=== PATIENT | female | born 1940 | race Caucasian/White ===

== ENCOUNTER → 2016-08-01 | Day surgery (SDC) | payer OTHER ==
[2016-07-25 11:39] VITALS: Ht 160 cm; Wt 61.8 kg
[~2016-08-01] VITALS: Ht 160 cm; Wt 61.8 kg
[~2016-08-01] MED LIST: BSP/10 PO; CLB100 PO; CLOP1TAB15 PO; ESCI1TAB6 PO; ESCI1TAB9 PO; FERR325T51 PO; LEVO100T7 PO; LIDOCAINE HCL 2% 2 ML VIAL (20MG/ML) ONE; LSN25 PO; METH500T37 PO; MISO1TAB10 PO; MULT-506 PO; NRN800 PO; ONDA4TAB9 PO; ONDANSETRON INJ 2 MG/ML 2 ML VIAL IV PRN; PANT40TA2 PO; PROM25TA16 PO; PROPOFOL IV EMULSION 10 MG/ML 20 ML VIAL IV ONE; ROSU40TA PO; TPRSR/25 PO; TRAM-10 PO; ZOLP5TAB PO
--- NOTE | 2016-08-01 13:01 | Endo History and Physical ---
History & Physical Date of Service: Aug 01, 2016. Chief Complaint: Dark stool and diarrhea Referring Physician: Dr. Coughlin History of Present Illness patient presenting for evaluation of weight loss, nausea and diarrhea ongoing for several months. Referred for eGD and colonoscopy. Past Medical History Angioplasty/Stent, Arthritis, Reflux, High Cholesterol, CABG, Hypertension, Thyroid Disease, Kidney Disease, Depression Past Surgical History Hx Cardiac Surgery: Yes (CABG-1 VESSEL) Hx Internal Defibrillator: No Hx Pacemaker: No Hx Abdominal Surgery: Yes (ENDY, PANNICULECTOMY) Hx of Implantable Prosthesis: No Hx Post-Op Nausea and Vomiting: No Hx Cancer Surgery: No Hx Thoracic Surgery: No Hx Orthopedic: Yes (RT/LEFT ANDRÉS) Hx Urinary Tract Surgery: No Family History None Social History Smoking Status: Never Smoker Hx Substance Use: No Hx Alcohol Use: No Allergies Coded Allergies: Ergotamine (Verified Adverse Reaction, Intermediate, vomiting, 07/13/16) Nitroglycerin (Verified Adverse Reaction, Mild, N/V, 07/13/16) Current Medications Reported Home Medications Medications Dose Route/Sig Max Daily Dose Days Date Category Lexapro (Escitalopram Oxalate) 10 Mg Tab 10 Mg PO QAM 07/13/16 Reported Lexapro (Escitalopram Oxalate) 5 Mg Tab 5 Mg PO QAM 07/13/16 Reported Multivitamin (Multivitamins) Tab 1 Tab PO QAM 07/13/16 Reported Robaxin (Methocarbamol) 500 Mg Tab 500 Mg PO TID 07/13/16 Reported Plavix (Clopidogrel Bisulfate) 75 Mg Tab 75 Mg PO QAM 07/13/16 Reported Cytotec (Misoprostol) 100 Mcg Tab 100 Mcg PO QID 07/13/16 Reported Celebrex (Celecoxib) 100 Mg Cap 1 Cap PO BID 30 07/13/16 Reported Ambien (Zolpidem Tartrate) 5 Mg Tab 5 Mg PO HS 07/13/16 Reported Iron Supplement (Ferrous Sulfate) 325 Mg Tab 325 Mg PO QAM 08/12/15 Reported Gabapentin 800 Mg Tab 800 Mg PO TID 08/12/15 Reported Ultram (Tramadol HCl) 50 Mg Tab 50 Mg PO Q4H PRN 08/12/15 Reported Ondansetron HCl (Ondansetron) 4 Mg Tab 4 Mg PO UD PRN 08/12/15 Reported Pantoprazole Sodium (Pantoprazole) 40 Mg Tab 40 Mg PO BID 08/12/15 Reported Metoprolol Succinate ER (Metoprolol Succinate) 25 Mg Tabcr 25 Mg PO QAM 08/12/15 Reported Levothyroxine Sodium 100 Mcg Tab 100 Mcg PO QAM 08/12/15 Reported Buspirone HCl 10 Mg Tab 10 Mg PO BID 07/01/14 Reported Promethazine HCl 25 Mg Tab 25 Mg PO Q6H PRN 07/01/14 Reported Lisinopril 2.5 Mg Tab 2.5 Mg PO QAM 07/01/14 Reported Crestor (Rosuvastatin Calcium) 40 Mg Tab 40 Mg PO QAM 05/24/12 Reported Vital Signs Weight (Kilograms): 61.82 Height (Feet): 5 Height (Inches): 3 Physical Exam General Appearance: no apparent distress Respiratory/Chest: Auscultation: breath sounds normal Cardiovascular: Heart Auscultation: RRR Abdomen: Inspection & Palpation: soft Assessment and Plan Patient for EGD and colonoscopy today for evaluation of diarrhea, dark stool and weight loss. We have discussed the risks (bleeding, infection, perforation , pain and missed polyps).
--- NOTE | 2016-08-01 13:57 | GI REPORT ---
Procedure Date: 08/01/2016 1:25 PM Procedure: Upper GI endoscopy Indications: Melena, Diarrhea Medicines: Monitored Anesthesia Care Complications: No immediate complications. Estimated blood loss: Minimal. Estimated Blood Loss: Estimated blood loss was minimal. Procedure: Pre-Anesthesia Assessment: - Prior to the procedure, a History and Physical was performed, and patient medications, allergies and sensitivities were reviewed. The patient's tolerance of previous anesthesia was reviewed. - The risks and benefits of the procedure and the sedation options and risks were discussed with the patient. All questions were answered and informed consent was obtained. - Patient identification and proposed procedure were verified prior to the procedure by the physician, the nurse and the curing press operator. The procedure was verified in the procedure room. - Pre-procedure physical examination revealed no contraindications to sedation. - ASA Grade Assessment: III - A patient with severe systemic disease. - After reviewing the risks and benefits, the patient was deemed in satisfactory condition to undergo the procedure. - The anesthesia plan was to use monitored anesthesia care (MAC). - Immediately prior to administration of medications, the patient was re-assessed for adequacy to receive sedatives. - The heart rate, respiratory rate, oxygen saturations, blood pressure, adequacy of pulmonary ventilation, and response to care were monitored throughout the procedure. - The physical status of the patient was re-assessed after the procedure. After obtaining informed consent, the endoscope was passed under direct vision. Throughout the procedure, the patient's blood pressure, pulse, and oxygen saturations were monitored continuously. The scope was introduced through the mouth, and advanced to the third part of duodenum. The upper GI endoscopy was accomplished without difficulty. The patient tolerated the procedure well. Findings: The examined esophagus was normal. The Z-line was regular and was found 37 cm from the incisors. Diffuse mild inflammation characterized by congestion (edema), erythema and granularity was found in the stomach. Biopsies were taken with a cold forceps for histology. Estimated blood loss was minimal. A single 4 mm no bleeding angioectasia was found in the gastric body. Coagulation for tissue destruction using argon plasma at 1 liter/minute and 15 alexander was successful. Estimated blood loss was minimal. The examined duodenum was normal. Biopsies for histology were taken with a cold forceps for evaluation of celiac disease. Estimated blood loss was minimal. Impression: - Normal esophagus. - Z-line regular, 37 cm from the incisors. - Gastritis. Biopsied. - A single non-bleeding angioectasia in the stomach. Treated with argon plasma coagulation (APC). - Normal examined duodenum. Biopsied. Recommendation: - Perform a colonoscopy today. - Await pathology results. - Observe patient's clinical course following today's procedure with therapeutic intervention. Aiden Sahu D.O. Aiden Sahu, 08/01/2016 1:56:55 PM This report has been signed electronically. Note Initiated On: 08/01/2016 1:25 PM I attest to the content of the Intraoperative Record and orders documented therein, exceptions below
--- NOTE | 2016-08-01 14:00 | GI REPORT ---
Procedure Date: 08/01/2016 1:26 PM Procedure: Colonoscopy Indications: Screening for colorectal malignant neoplasm, Incidental diarrhea noted Medicines: Monitored Anesthesia Care Complications: No immediate complications. Estimated blood loss: Minimal. Estimated Blood Loss: Estimated blood loss was minimal. Procedure: Pre-Anesthesia Assessment: - Prior to the procedure, a History and Physical was performed, and patient medications, allergies and sensitivities were reviewed. The patient's tolerance of previous anesthesia was reviewed. - The risks and benefits of the procedure and the sedation options and risks were discussed with the patient. All questions were answered and informed consent was obtained. - Patient identification and proposed procedure were verified prior to the procedure by the physician, the nurse and the furniture stainer. The procedure was verified in the procedure room. - Pre-procedure physical examination revealed no contraindications to sedation. - ASA Grade Assessment: III - A patient with severe systemic disease. - After reviewing the risks and benefits, the patient was deemed in satisfactory condition to undergo the procedure. - The anesthesia plan was to use monitored anesthesia care (MAC). - Sedation was administered by an anesthesia professional. - The heart rate, respiratory rate, oxygen saturations, blood pressure, adequacy of pulmonary ventilation, and response to care were monitored throughout the procedure. - The physical status of the patient was re-assessed after the procedure. After I obtained informed consent, the scope was passed under direct vision. Throughout the procedure, the patient's blood pressure, pulse, and oxygen saturations were monitored continuously. The scope was introduced through the anus and advanced to the terminal ileum. The colonoscopy was performed without difficulty. The patient tolerated the procedure well. The quality of the bowel preparation was good. Findings: The perianal and digital rectal examinations were normal. Pertinent negatives include normal sphincter tone. The terminal ileum appeared normal. Normal mucosa was found in the entire colon. Fluid aspiration was performed through the scope suction channel. Sample(s) were sent for bacterial cultures, Clostridium difficile and ova and parasites. Biopsies for histology were taken with a cold forceps from the entire colon for evaluation of microscopic colitis. Estimated blood loss was minimal. Internal hemorrhoids were found during retroflexion. The hemorrhoids were mild. The exam was otherwise without abnormality. Impression: - The examined portion of the ileum was normal. - Normal mucosa in the entire examined colon. Fluid aspiration performed. Biopsied. - Internal hemorrhoids. - The examination was otherwise normal. Recommendation: - Discharge patient to home (ambulatory). - Advance diet as tolerated today. - Await pathology results. - Repeat colonoscopy is not recommended for screening purposes. - Return to referring physician as previously scheduled. Aiden Sahu D.O. Aiden Sahu, DO 08/01/2016 1:59:39 PM This report has been signed electronically. Note Initiated On: 08/01/2016 1:26 PM I attest to the content of the Intraoperative Record and orders documented therein, exceptions below
--- NOTE | 2016-08-01 14:06 | Discharge Instructions ---
Endoscopy Patient Instructions Date / Procedure(s) Performed Aug 01, 2016. Colonoscopy, EGD Allergy Information Coded Allergies: Ergotamine (Verified Adverse Reaction, Intermediate, vomiting, 07/13/16) Nitroglycerin (Verified Adverse Reaction, Mild, N/V, 07/13/16) Discharge Date / Findings Aug 01, 2016. MIld gastritis (likely medication related) 1 small gastric AVM (treated with thermal therapy) Internal hemorrhoids Medication Instructions Stopped Medication(s): PLAVIX 07/28/16 Reported Home Medications Medications Dose Route/Sig Max Daily Dose Days Date Category Lexapro (Escitalopram Oxalate) 10 Mg Tab 10 Mg PO QAM 07/13/16 Reported Lexapro (Escitalopram Oxalate) 5 Mg Tab 5 Mg PO QAM 07/13/16 Reported Multivitamin (Multivitamins) Tab 1 Tab PO QAM 07/13/16 Reported Robaxin (Methocarbamol) 500 Mg Tab 500 Mg PO TID 07/13/16 Reported Plavix (Clopidogrel Bisulfate) 75 Mg Tab 75 Mg PO QAM 07/13/16 Reported Cytotec (Misoprostol) 100 Mcg Tab 100 Mcg PO QID 07/13/16 Reported Celebrex (Celecoxib) 100 Mg Cap 1 Cap PO BID 30 07/13/16 Reported Ambien (Zolpidem Tartrate) 5 Mg Tab 5 Mg PO HS 07/13/16 Reported Iron Supplement (Ferrous Sulfate) 325 Mg Tab 325 Mg PO QAM 08/12/15 Reported Gabapentin 800 Mg Tab 800 Mg PO TID 08/12/15 Reported Ultram (Tramadol HCl) 50 Mg Tab 50 Mg PO Q4H PRN 08/12/15 Reported Ondansetron HCl (Ondansetron) 4 Mg Tab 4 Mg PO UD PRN 08/12/15 Reported Pantoprazole Sodium (Pantoprazole) 40 Mg Tab 40 Mg PO BID 08/12/15 Reported Metoprolol Succinate ER (Metoprolol Succinate) 25 Mg Tabcr 25 Mg PO QAM 08/12/15 Reported Levothyroxine Sodium 100 Mcg Tab 100 Mcg PO QAM 08/12/15 Reported Buspirone HCl 10 Mg Tab 10 Mg PO BID 07/01/14 Reported Promethazine HCl 25 Mg Tab 25 Mg PO Q6H PRN 07/01/14 Reported Lisinopril 2.5 Mg Tab 2.5 Mg PO QAM 07/01/14 Reported Crestor (Rosuvastatin Calcium) 40 Mg Tab 40 Mg PO QAM 05/24/12 Reported Provider Instructions Activity Restrictions - No exercising or heavy lifting for 24 hours. - Do not drink alcohol the day of the procedure. - Do not drive a car or operate machinery until the day after the procedure. - Do not make any important decisions or sign important papers in 24 hours after the procedure. Following Day: - Return to full activity which may include returning to work/school. Diet Start your diet with liquids and light foods (jello, soup, juice, toast). Then eat your usual diet if not nauseated. Treatment For Common After Affects For mild abdominal pain, bloating, or excessive gas: - Rest - Eat lightly - Lie on right side Follow-Up Information Follow-up with DR. GARCIA as scheduled Await colon and biopsies from the upper digestive tract If weight loss persists would consider a CT of the abdomen Anesthesia Information What You Should Know You have had a procedure that required some medicine to reduce anxiety and discomfort. This treatment is called moderate sedation. After receiving the treatment, you may be sleepy, but you will be able to breathe on your own. The effects of the treatment may last for several hours. Follow these instructions along with Activity/Diet recommendations noted above: * Do NOT do anything where dizziness or clumsiness would be dangerous. * Rest quietly at home today, then you can be up and about tomorrow. * Have a responsible person stay with you the rest of today. * You may have had an I.V. today. If so, you may take the dressing off later today. Recommendations Call your doctor if: * Trouble breathing * Continuous vomiting for more than 24 hours * Temperature above 101 degrees * Severe abdominal pain or bloating * Pain not relieved by pain medicine ordered * There is increased drainage or redness from any incision * A large amount of rectal bleeding greater than 2-3 tablespoons. (If you had a polyp/s removed or have hemorrhoids, a small amount of blood - from the rectum is to be expected.) * You have any unanswered questions or concerns. IN THE EVENT OF A SERIOUS EMERGENCY, GO TO THE NEAREST EMERGENCY ROOM Your discharge instructions were prepared by provider Aiden Sahu. Patient Instructions Signature Page Marquez Howard Patient (or Guardian) Signature/Date: I have read and understand the instructions given to me by my caregivers. Caregiver/RN/Doctor Signature/Date: The above-named patient and/or guardian has received patient instructions on this date. + Original Patient Signature Page (only) stays with chart. Please make copy for patient.
--- NOTE | 2016-08-01 14:18 | Anesthesiology Progress Note ---
Anesthesia Post Op Note Date & Time Aug 01, 2016 at 14:18 Vital Signs Pain Intensity: 0 Vital Signs Past 12 Hours Date Time Temp Pulse Resp B/P (MAP) Pulse Ox O2 Delivery O2 Flow Rate FiO2 08/01/16 14:13 77 18 127/82 (97) 99 Room Air 08/01/16 13:58 86 18 128/77 (94) 98 Room Air 08/01/16 13:00 36.9 79 18 137/71 (93) 98 Room Air Notes Mental Status: alert / awake / arousable, participated in evaluation Pt Amnestic to Procedure: Yes Nausea / Vomiting: adequately controlled Pain: adequately controlled Airway Patency, RR, SpO2: stable & adequate BP & HR: stable & adequate Hydration State: stable & adequate Anesthetic Complications: no major complications apparent
[2016-08-01 14:28] VITALS: BP 140/75; PULSE 74; O2SAT 98
[2016-08-09 13:44] LABS: CRYPTOSPORIDIUM AG TC 37213 NOT DETECTED (NOT DETECTED); ISOSPORA+CYCLOSPORA NOT DETECTED (NOT DETECTED); O&P GIARDIA AG NOT DETECTED (NOT DETECTED); O&P SOURCE OTHER-STOOL
== END | disposition home or self-care (01) ==
LOC: C.GI 12:23
PROVIDERS: ATTEND Internal Medicine Gastroenterology
DX: K92.1 Melena (principal); R19.7 Diarrhea, unspecified; R63.4 Abnormal weight loss; R11.0 Nausea; K64.8 Other hemorrhoids; K29.70 Gastritis, unspecified, without bleeding; K55.20 Angiodysplasia of colon without hemorrhage; I25.10 Atherosclerotic heart disease of native coronary artery without angina pectoris; I10 Essential (primary) hypertension; M19.90 Unspecified osteoarthritis, unspecified site; F32.9 Major depressive disorder, single episode, unspecified; E78.00 Pure hypercholesterolemia, unspecified; K21.9 Gastro-esophageal reflux disease without esophagitis; Z68.24 Body mass index [BMI] 24.0-24.9, adult; Z79.899 Other long term (current) drug therapy; Z95.1 Presence of aortocoronary bypass graft; Z96.643 Presence of artificial hip joint, bilateral

== ENCOUNTER 2017-10-10 14:10 | Emergency (ER) | payer OTHER ==
[~2017-10-10] VITALS: Ht 160 cm; Wt 63.4 kg
[~2017-10-10 14:10] MED LIST changes: +ACET-24 PO; +DIPH-416 PO; +FERR1TAB62 PO; -FERR325T51 PO; -LIDOCAINE HCL 2% 2 ML VIAL (20MG/ML) ONE; +METH-445 PO; -METH500T37 PO; -ONDANSETRON INJ 2 MG/ML 2 ML VIAL IV PRN; -PROPOFOL IV EMULSION 10 MG/ML 20 ML VIAL IV ONE; +QUET1TAB30 PO; +RXC5 PO; -TRAM-10 PO; -ZOLP5TAB PO
[2017-10-10 14:35] VITALS: TEMP 36.6; Ht 160 cm; Wt 63.4 kg
[2017-10-10 14:37] VITALS: O2SAT 99
[2017-10-10] MEDS ORDERED: ONDANSETRON INJ 2 MG/ML 2 ML VIAL IV STA (14:56)
[2017-10-10] MEDS ORDERED: LABETALOL HCL IV 5 MG/ML 20ML IV STA (14:56)
[2017-10-10] MEDS ORDERED: RANITIDINE HCL 50 MG/100 ML D5W IV STA (14:56)
[2017-10-10] MEDS ORDERED: PANTOprazole INJ 80 MG in DEXTROSE 5% 100ML 100 ML IV STA (14:56)
[2017-10-10] MEDS ORDERED: SODIUM CHLORIDE 0.9% 1000ML 1,000 ML IV STA (14:56)
[2017-10-10] MEDS ORDERED: OPTIRAY 320 IV PRN (15:15)
[2017-10-10 15:25] LABS: BASO % 0.6 %; BASO ABS # 0.03 K/uL (0-0.2); EOS % 1.8 %; HEMATOCRIT 34.4 % (37-47); HEMOGLOBIN 11.6 g/dL (12.0-16.0); LYMPH % 32.1 %; LYMPH ABS # 1.75 K/uL (1.2-3.4); MEAN CELL VOLUME 91.7 fL (80-100); MEAN CORPUSCULAR HEMOGLOBIN 30.9 pg (25-34); MEAN CORPUSCULAR HGB CONC 33.7 g/dl (32-36); MONO % 9.5 %; MONO ABS # 0.52 K/uL (0.11-0.59); NEUT ABS # 3.05 K/uL (1.4-6.5); PLATELET COUNT 164 K/uL (130-400); RED CELL DISTRIBUTION WIDTH CV 13.9 % (11.5-14.5); RED CELL DISTRIBUTION WIDTH SD 46.8 fL (36.4-46.3); WHITE BLOOD COUNT 5.45 K/uL (4.8-10.8)
[2017-10-10 15:46] LABS: ALBUMIN 3.5 gm/dl (3.4-5.0); ALKALINE PHOSPHATASE 55 U/L (45-117); ALT/SGPT 17 U/L (12-78); AST/SGOT 18 U/L (15-37); BLOOD UREA NITROGEN 11 mg/dl (7-18); CALCIUM 10.2 mg/dl (8.5-10.1); CARBON DIOXIDE 22 mmol/L (21-32); CREATININE 0.86 mg/dl (0.60-1.20); GLUCOSE 92 mg/dl (70-99); LIPASE 150 U/L (73-393); POTASSIUM 3.7 mmol/L (3.5-5.1); SODIUM 141 mmol/L (136-145); TOTAL PROTEIN 7.1 gm/dl (6.4-8.2)
[2017-10-10] MEDS ORDERED: HYDR-5688 PO (16:30)
--- NOTE | 2017-10-10 17:02 | DIAGNOSTIC IMAGING REPORT ---
ABD/PELVIS IV CONTRAST ONLY CLINICAL HISTORY: 78 years-old Female presenting with ABD PAIN, POSS OBSTRUCTION, IV CONTRAST ONLY. TECHNIQUE: Multidetector CT of the abdomen and pelvis was performed after the administration of intravenous contrast. IV contrast: 93 mL of Optiray 320. A dose lowering technique was used consistent with the principles of ALARA (as low as reasonably achievable). COMPARISON: None. CT DOSE (mGy.cm): The estimated cumulative dose is 643.81 mGycm. 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 Scoliotic curvature and degenerative changes of the spine. Lung bases: Bandlike opacities at the lung bases likely atelectasis or scarring. Normal heart size. Coronary artery calcification. No pericardial or pleural effusion. Liver: Normal morphology. No liver lesion. Patent hepatic vasculature. Biliary: No intrahepatic or extrahepatic biliary ductal dilatation. Normal gallbladder. Pancreas: Normal. Spleen: Numerous punctate calcifications in the splenic parenchyma suggest a history of chronic granulomatous infection. Adrenal glands: Normal. Kidneys and ureters: Punctate nonobstructing calculus at the upper pole the right kidney. No hydronephrosis. Normal renal parenchyma. Ureters nondistended. Significant streak artifact in the pelvis limits evaluation of the distal ureters. Bladder: Poorly evaluated secondary to streak artifact. Pelvic organs: Poorly evaluated secondary to streak artifact. Bowel: Suboptimal evaluation of the mid to lower rectum. The appendix is normal. No bowel obstruction. Small hiatal hernia. Peritoneal cavity: No free fluid or intraperitoneal gas. Lymph nodes: No enlarged lymph nodes in the abdomen or pelvis. Vasculature: Atherosclerosis of the normal caliber abdominal aorta. IVC patent. Tortuosity of the abdominal aorta without evidence of aneurysmal dilatation. Abdominal wall: Small fat-containing umbilical hernia. No associated inflammatory change or fluid. Musculoskeletal: Degenerative changes of the spine. The degree of scoliosis limits evaluation. Bilateral total hip arthroplasties. Resulting extensive streak artifact degrades evaluation of the pelvis. Old posterior right rib fracture deformity. IMPRESSION: 1. No acute intra-abdominal pathology. No bowel obstruction. 2. Punctate nonobstructing right renal calculus. Electronically signed by: David Estrada M.D. 10/10/2017 5:01 PM Dictated Date/Time: 10/10/2017 4:53 PM
[2017-10-10] MEDS ORDERED: SODIUM CHLORIDE 0.9% 500ML 500 ML IV STA (17:18)
[2017-10-10] MEDS ORDERED: PROM25TA9 PO (17:22)
[2017-10-10 17:52] VITALS: BP 160/80; PULSE 74; O2SAT 98
--- NOTE | 2017-10-10 18:28 | EMERGENCY ROOM VISIT NOTE ---
History Report prepared by Teodoro: Feliberto Ibarra Under the Supervision of: Dr. Avel Santiago M.D. First contact with patient: 14:51 Chief Complaint: VOMITING Stated Complaint: VOMITING Nursing Triage Summary: Pt has had complaints of nausea since 0300 AM on sunday, Stated, "it was blood tinged on sunday but is no longer blood tinged." Has had diarehhea but no complaints of it today. Has not taken BP meds for 3 days and denies having any pain. History of Present Illness The patient is a 78 year old female who presents to the Emergency Room with complaints of intermittent vomiting beginning 3 days ago and a resolved episode of diarrhea occurring last night at 22:00. The patient reports that she started vomiting Sunday at 03:00, and vomited again this morning. She notes that there was some blood in her vomit at the onset of her symptoms. The patient denies current abdominal pain, fever, urinary symptoms, or sick contacts. She states that she is on Plavix, Toprol, and Crestor. She notes that she has not been taking her blood pressure medications since the onset of her symptoms. She notes that on the night prior to vomiting, she ate a can of Progresso stew. She reports that she had similar symptoms in June 2014 and was admitted to the hospital for 3 weeks with bleeding ulcers. The patient reports that she arrived today via ambulance. She states that she lives alone. Source of History: patient Onset: 3 days ago Position: other (throat (vomit), bowels (diarrhea)) Quality: other (vomiting and diarrhea) Timing: intermittent (vomiting), resolved (diarrhea) Associated Symptoms: No fevers, No abdominal pain, No urinary symptoms Review of Systems See HPI for pertinent positives & negatives. A total of 10 systems reviewed and were otherwise negative. Past Medical & Surgical Medical Problems: (1) Anxiety (2) Chronic kidney disease stage 3 (3) Chronic osteoarthritis (4) Coronary artery disease (5) Depression (6) DJD of left shoulder (7) Dyslipidemia (8) Gastric ulcer (9) GERD (gastroesophageal reflux disease) (10) Hypertension (11) Hypothyroidism Surgical Problems: (1) H/O bilateral salpingo-oophorectomy (2) History of shoulder surgery (3) History of tonsillectomy and adenoidectomy (4) s/p hysterectomy (5) s/p repair retinal tear (6) s/p ANDRÉS (7) s/p tonsillectomy Family History CAD BROTHER CHF MOTHER Social History Smoking Status: Never Smoker Alcohol Use: none Housing Status: lives alone Current/Historical Medications Scheduled Acetaminophen (Sb Non-Aspirin Extra Stre), 1,000 MG PO Q8 Buspirone HCl (Buspirone HCl), 10 MG PO BID Celecoxib (Celebrex), 1 CAP PO QAM Clopidogrel (Plavix), 75 MG PO QAM Escitalopram Oxalate (Lexapro), 5 MG PO QAM Escitalopram Oxalate (Lexapro), 10 MG PO QAM Ferrous Sulfate (Ferrous Sulfate), 1 TAB PO QAM Gabapentin (Gabapentin), 800 MG PO TID Levothyroxine Sodium (Levothyroxine Sodium), 100 MCG PO QAM Lisinopril (Lisinopril), 2.5 MG PO QAM Methocarbamol (Robaxin), 500 MG PO TID Metoprolol Succinate (Metoprolol Succinate ER), 50 MG PO QAM Misoprostol (Cytotec), 100 MCG PO QID Multivitamin (Multivitamin), 1 TAB PO QAM Scheduled PRN Diphenoxylate/Atropine (Lomotil), 1 TAB PO QD PRN for Diarrhea Hydrocodone/Acetaminophen 5MG/325MG ([place] 5MG/325MG), 1-2 TABLET PO QID PRN for Pain Promethazine Hcl (Phenergan), 25 MG PO Q6H PRN for Nausea Allergies Coded Allergies: Ergotamine (Verified Adverse Reaction, Intermediate, vomiting, 07/13/17) Nitroglycerin (Verified Adverse Reaction, Mild, N/V, 10/10/17) Physical Exam Vital Signs Date Time Temp Pulse Resp B/P (MAP) Pulse Ox O2 Delivery O2 Flow Rate FiO2 10/10/17 17:52 74 18 160/80 98 Room Air 10/10/17 16:56 75 18 151/97 98 Room Air 10/10/17 16:00 69 18 145/90 98 Room Air 10/10/17 15:22 83 18 182/126 98 Room Air 10/10/17 14:38 87 18 194/96 100 Room Air 10/10/17 14:37 99 Room Air 10/10/17 14:35 36.6 84 18 204/111 100 Room Air 10/10/17 14:34 79 Physical Exam GENERAL: Patient is in no acute distress. HEENT: No acute trauma, normocephalic atraumatic, mucous membranes dry, no nasal congestion, no scleral icterus. NECK: No stridor, no adenopathy, no meningismus, trachea is midline. LUNGS: Clear to auscultation bilaterally, no wheeze, no rhonchi, breath sounds equal. HEART: Without murmurs gallops or rubs, regular rate and rhythm. ABDOMEN: Soft, nontender, bowel sounds positive and hyperactive, no hernias, no peritonitis. EXTREMITIES: No cyanosis or edema, full range of motion of all the joints without pain or difficulty, no signs for acute trauma. NEUROLOGIC: Oriented x 3, no acute motor or sensory deficits, no focal weakness. SKIN: No rash, no jaundice, no diaphoresis. RECTAL: Brown stool, heme negative. Medical Decision & Procedures ER Provider Diagnostic Interpretation: Radiology results as stated below per my review and radiologist interpretation: ABD/PELVIS IV CONTRAST ONLY CLINICAL HISTORY: 78 years-old Female presenting with ABD PAIN, POSS OBSTRUCTION, IV CONTRAST ONLY. TECHNIQUE: Multidetector CT of the abdomen and pelvis was performed after the administration of intravenous contrast. IV contrast: 93 mL of Optiray 320. A dose lowering technique was used consistent with the principles of ALARA (as low as reasonably achievable). COMPARISON: None. CT DOSE (mGy.cm): The estimated cumulative dose is 643.81 mGycm. FINDINGS: Pillowcase Folder topogram: Bilateral total hip prostheses. Scoliotic curvature and degenerative changes of the spine. Lung bases: Bandlike opacities at the lung bases likely atelectasis or scarring. Normal heart size. Coronary artery calcification. No pericardial or pleural effusion. Liver: Normal morphology. No liver lesion. Patent hepatic vasculature. Biliary: No intrahepatic or extrahepatic biliary ductal dilatation. Normal gallbladder. Pancreas: Normal. Spleen: Numerous punctate calcifications in the splenic parenchyma suggest a history of chronic granulomatous infection. Adrenal glands: Normal. Kidneys and ureters: Punctate nonobstructing calculus at the upper pole the right kidney. No hydronephrosis. Normal renal parenchyma. Ureters nondistended. Significant streak artifact in the pelvis limits evaluation of the distal ureters. Bladder: Poorly evaluated secondary to streak artifact. Pelvic organs: Poorly evaluated secondary to streak artifact. Bowel: Suboptimal evaluation of the mid to lower rectum. The appendix is normal. No bowel obstruction. Small hiatal hernia. Peritoneal cavity: No free fluid or intraperitoneal gas. Lymph nodes: No enlarged lymph nodes in the abdomen or pelvis. Vasculature: Atherosclerosis of the normal caliber abdominal aorta. IVC patent. Tortuosity of the abdominal aorta without evidence of aneurysmal dilatation. Abdominal wall: Small fat-containing umbilical hernia. No associated inflammatory change or fluid. Musculoskeletal: Degenerative changes of the spine. The degree of scoliosis limits evaluation. Bilateral total hip arthroplasties. Resulting extensive streak artifact degrades evaluation of the pelvis. Old posterior right rib fracture deformity. IMPRESSION: 1. No acute intra-abdominal pathology. No bowel obstruction. 2. Punctate nonobstructing right renal calculus. Electronically signed by: David Estrada M.D. 10/10/2017 5:01 PM Dictated Date/Time: 10/10/2017 4:53 PM Laboratory Results 10/10/17 15:09 Red Blood Count 3.75, Mean Corpuscular Volume 91.7, Mean Corpuscular Hemoglobin 30.9, Mean Corpuscular Hemoglobin Concent 33.7, Mean Platelet Volume 10.0, Neutrophils (%) (Auto) 56.0, Lymphocytes (%) (Auto) 32.1, Monocytes (%) (Auto) 9.5, Eosinophils (%) (Auto) 1.8, Basophils (%) (Auto) 0.6, Neutrophils # (Auto) 3.05, Lymphocytes # (Auto) 1.75, Monocytes # (Auto) 0.52, Eosinophils # (Auto) 0.10, Basophils # (Auto) 0.03 10/10/17 15:09 Test 10/10/17 14:30 10/10/17 15:09 Urine Color YELLOW Urine Appearance CLEAR (CLEAR) Urine pH 8.5 (4.5-7.5) Urine Specific [place] 1.012 (1.000-1.030) Urine Protein NEG (NEG) Urine Glucose (UA) NEG (NEG) Urine Ketones NEG (NEG) Urine Occult Blood NEG (NEG) Urine Nitrite NEG (NEG) Urine Bilirubin NEG (NEG) Urine Urobilinogen NEG (NEG) Urine Leukocyte Esterase NEG (NEG) White Blood Count 5.45 K/uL (4.8-10.8) Red Blood Count 3.75 M/uL (4.2-5.4) Hemoglobin 11.6 g/dL (12.0-16.0) Hematocrit 34.4 % (37-47) Mean Corpuscular Volume 91.7 fL (80-100) Mean Corpuscular Hemoglobin 30.9 pg (25-34) Mean Corpuscular Hemoglobin Concent 33.7 g/dl (32-36) Platelet Count 164 K/uL (130-400) Mean Platelet Volume 10.0 fL (7.4-10.4) Neutrophils (%) (Auto) 56.0 % Lymphocytes (%) (Auto) 32.1 % Monocytes (%) (Auto) 9.5 % Eosinophils (%) (Auto) 1.8 % Basophils (%) (Auto) 0.6 % Neutrophils # (Auto) 3.05 K/uL (1.4-6.5) Lymphocytes # (Auto) 1.75 K/uL (1.2-3.4) Monocytes # (Auto) 0.52 K/uL (0.11-0.59) Eosinophils # (Auto) 0.10 K/uL (0-0.5) Basophils # (Auto) 0.03 K/uL (0-0.2) RDW Standard Deviation 46.8 fL (36.4-46.3) RDW Coefficient of Variation 13.9 % (11.5-14.5) Immature Granulocyte % (Auto) 0.0 % Immature Granulocyte # (Auto) 0.00 K/uL (0.00-0.02) Anion Gap 9.0 mmol/L (3-11) Est Creatinine Clear Calc Drug Dose 46.8 ml/min Estimated GFR () 73.9 Estimated GFR (Non- 63.8 BUN/Creatinine Ratio 12.5 (10-20) Calcium Level 10.2 mg/dl (8.5-10.1) Total Bilirubin 0.6 mg/dl (0.2-1) Aspartate Amino Transf (AST/SGOT) 18 U/L (15-37) Alanine Aminotransferase (ALT/SGPT) 17 U/L (12-78) Alkaline Phosphatase 55 U/L (45-117) Troponin I < 0.015 ng/ml (0-0.045) Total Protein 7.1 gm/dl (6.4-8.2) Albumin 3.5 gm/dl (3.4-5.0) Globulin 3.6 gm/dl (2.5-4.0) Albumin/Globulin Ratio 1.0 (0.9-2) Lipase 150 U/L (73-393) Laboratory results reviewed by me. Medications Administered Medications (Trade) Dose Ordered Sig/Danielle Route Start Time Stop Time Status Last Admin Dose Admin Ondansetron HCl (Zofran Inj) 4 mg NOW STAT IV 10/10/17 14:56 10/10/17 15:00 DC 10/10/17 14:56 4 MG Sodium Chloride 1,000 ml @ 999 mls/hr Q1H1M STAT IV 10/10/17 14:56 10/10/17 15:56 DC 10/10/17 15:09 999 MLS/HR Pantoprazole Sodium 80 mg/ Dextrose 120 ml @ 400 mls/hr NOW STAT IV 10/10/17 14:56 10/10/17 15:13 DC 10/10/17 14:56 400 MLS/HR Ranitidine HCl (zANTac IV) 50 mg NOW STAT IV 10/10/17 14:56 10/10/17 15:00 DC 10/10/17 14:56 50 MG Labetalol HCl (Normodyne IV) 20 mg NOW STAT IV 10/10/17 14:56 10/10/17 15:00 DC 10/10/17 15:13 20 MG Sodium Chloride 500 ml @ 999 mls/hr Q31M STAT IV 10/10/17 17:18 10/10/17 17:48 DC 10/10/17 17:22 999 MLS/HR ECG Per My Interpretation Indication: vomiting Rate (beats per minute): 80 Rhythm: normal sinus Findings: other (No ST elevation. No PVCs.) ED Course 1452: The patient was evaluated in room B7. A complete history and physical exam was performed. 1456: Ordered Normodyne 20 mg IV, Zantac 50 mg IV, Pantoprazole Sodium 80 mg/ Dextrose 120 ml @ 400 mls/hr IV, Sodium Chloride 1000 ml @ 999 mls/hr IV, Zofran 4 mg IV 1714: Reevaluated the patient, who is feeling markedly. Discussed results and discharge instructions: She verbalized understanding and agreement. The patient will be ready for discharge. 1718: Ordered Sodium Chloride 500 ml @ 999 mls/hr IV Medical Decision Differential diagnosis: viral or foodborne illness, gastritis, GI bleeding, UTI , anemia, electrolyte imbalance, dehydration, bowel obstruction There is no leukocytosis or worrisome anemia. No significant electrolyte abnormality, kidney failure or hepatitis. Urinalysis does not show evidence for infection. EKG shows a normal sinus rhythm, no acute ischemia. Cardiac enzyme testing 1 is not consistent with acute cardiac injury. Abdominal and pelvis CT does not show bowel obstruction, there is no free air, no acute surgical process by CT. Rectal exam was performed, stool was heme negative. On exam, the patient was not febrile, there was no peritonitis, she was not toxic. The patient received IV saline, IV Zantac and IV Protonix. She was given IV labetalol because of the higher blood pressure. She received a second dose of IV saline. The patient feels markedly improved. I do think she can be discharged with some Phenergan for nausea. She can slowly advance her diet, Tylenol for pain. She was reassured. This illness is likely viral or foodborne. The patient will follow with her doctor and return here if not improving. Medication Reconcilliation Current Medication List: was personally reviewed by me Blood Pressure Screening Patient's blood pressure: Elevated blood pressure Blood pressure disposition: Referred to PCP Impression Primary Impression: Dehydration Additional Impression: Nausea, vomiting, and diarrhea Scribe Attestation The scribe's documentation has been prepared under my direction and personally reviewed by me in its entirety. I confirm that the note above accurately reflects all work, treatment, procedures, and medical decision making performed by me. Departure Information Dispostion Home / Self-Care Prescriptions Promethazine Hcl (Phenergan) 25 Mg Tab 25 MG PO Q6H Y for Nausea, #15 TAB Prov: Avel Santiago M.D. 10/10/17 Referrals Con Coughlin M.D. (PCP) Forms HOME CARE DOCUMENTATION FORM, IMPORTANT VISIT INFORMATION Patient Instructions My [facility] Additional Instructions bland diet--crackers, soup, toast, gatorade, rice restart all your normal meds use phenergan 1 tab every 6 hours for nausea tylenol for pain rest follow with rubi holly this week return for worsening symptoms or if not improving Problem Qualifiers
== END 2017-10-10 18:04 | disposition home or self-care (01) ==
LOC: EDBD 14:10 → C.EDB 14:11
DX: E86.0 Dehydration (principal); R11.2 Nausea with vomiting, unspecified; R19.7 Diarrhea, unspecified; I12.9 Hypertensive chronic kidney disease with stage 1 through stage 4 chronic kidney disease, or unspecified chronic kidney disease; N18.3 Chronic kidney disease, stage 3 (moderate); F41.9 Anxiety disorder, unspecified; F32.9 Major depressive disorder, single episode, unspecified; E78.5 Hyperlipidemia, unspecified; E03.9 Hypothyroidism, unspecified; I25.10 Atherosclerotic heart disease of native coronary artery without angina pectoris; Z79.02 Long term (current) use of antithrombotics/antiplatelets; Z79.899 Other long term (current) drug therapy; Z88.8 Allergy status to other drugs, medicaments and biological substances

== ENCOUNTER 2018-02-28 08:44 | Inpatient (IN) ==
--- NOTE | 2018-01-18 10:48 | History & Physical Report ---
Date of Service January 18, 2018 Assessment & Plan (1) Primary osteoarthritis, right shoulder: Patient has significant osteoarthritis and degenerative changes in her right shoulder. Treatment options were discussed and would like to proceed with right reverse total shoulder arthroplasty. She had left reverse tsa in June and procedure was well tolerated. Risks, benefits and alternatives to surgery including but not limited to infection, DVT, pain, stiffness, need for revision surgery, damage to blood vessels, damage to nerves, PE, , were discussed with the patient and they wish to proceed . All questions answered and reassurance given. Patient plans to return home with home health PT upon discharge. She will follow up post operatively. History of Present Illness Chief Complaint: Right shoulder pain Primary Care Provider: Con Coughlin MD Patient is an 79 year old female with complaints of chronic right shoulder pain. She has failed conservative measures including anti-inflammatory medications and cortisone injections. Treatment options were discussed and she would like to proceed with right reverse total shoulder arthroplasty. She has had previous left reverse TSA in June of this year. Patient denies headaches, sweats, fevers, chills, double vision, blurred vision, cough, sore throat, dysphagia, wheezing, n/v/d/c, numbness, tingling, fatigue, urinary symptoms, mood disorders. ROS positive for right shoulder pain and stiffness. She also had an episode of chest tightness and sob yesterday. This did resolve on its own. She was unsure if this was cardiac related or due to being very nervous about her upcoming surgery. States she was going to call her ghost writer in regards to this. She will need cardiac clearance prior to surgery. PMHx: Anxiety, CKDIII, OA, depression, dyslipidemia, gastric ulcer, GERD, hypertension, hypothyroidism, ? history of TIA Past surgical hx: bilateral salpingo-oophorectomy, left reverse TSA, T&A, hysterectomy, repair of retinal tear, ANDRÉS Social history: Patient denies alcohol or drug use, she is a non smoker. Allergies Allergy/AdvReac Type Severity Reaction Status Date / Time ergotamine AdvReac Intermediate vomiting Verified 07/13/17 06:37 nitroglycerin AdvReac Mild N/V Verified 10/10/17 16:28 Home Medications Home Medications Medication Instructions Recorded Confirmed Type Buspirone HCl 10 mg PO BID #0 07/01/14 History Lisinopril 2.5 mg PO QAM #0 07/01/14 History Gabapentin 800 mg PO TID #0 08/12/15 History LEVOTHYROXINE SODIUM 100 mcg PO QAM #0 08/12/15 History Metoprolol Succinate (Metoprolol 50 mg PO QAM #0 08/12/15 History Succinate ER) Clopidogrel (Plavix) 75 mg PO QAM #0 tab 07/13/16 History ESCITALOPRAM OXALATE (LEXAPRO) 5 mg PO QAM #0 tab 07/13/16 History ESCITALOPRAM OXALATE (LEXAPRO) 10 mg PO QAM #0 tab 07/13/16 History MISOPROSTOL (CYTOTEC) 100 mcg PO QID #0 tab 07/13/16 History Methocarbamol (Robaxin) 500 mg PO TID #0 tab 07/13/16 History Multivitamin 1 tab PO QAM #0 tab 07/13/16 History Diphenoxylate/Atropine (Lomotil) 1 tab PO QD PRN #0 tab 07/02/17 History FERROUS SULFATE 1 tab PO QAM #0 07/02/17 History ACETAMINOPHEN (SB NON-ASPIRIN 1,000 mg PO Q8 #63 tab 07/15/17 Rx EXTRA STRE) Celecoxib (Celebrex) 1 cap PO QAM 30 Days #30 cap 07/15/17 Rx Hydrocodone/Acetaminophen 1 - 2 tab PO QID PRN #0 tab 10/10/17 History 5MG/325MG ([place] 5MG/325MG) Promethazine Hcl (Phenergan) 25 mg PO Q6H PRN #15 tab 10/10/17 Rx Review of Systems All systems reviewed & are unremarkable except as noted in HPI & below Physical Exam 2 Constitutional: well developed and well nourished; no acute distress Eyes: PERRL, conjunctivae normal, anicteric sclerae ENMT: external ear and nose normal, oropharynx normal Neck: trachea midline, no thyromegaly Respiratory: normal respiratory effort, lungs clear to auscultation Cardiovascular: RRR, no murmur, no edema Vessels: no carotid bruit Musculoskeletal: right shoulder-Pain and crepitus with ROM, significantly decreased strength and ROM in all directions. Skin: no rashes, warm and dry Neurologic: normal touch/pain/proprioception Psychiatric: A+Ox3, euthymic affect Results & Data Diagnostic Findings Right shoulder x-rays: [id number] GH joint, humeral head elevation, medialization of humeral head on glenoid. Significant degenerative changes
--- NOTE | 2018-01-25 11:28 | Anesthesiology Consultation ---
Date of Service January 25, 2018 Assessment & Plan (1) Encounter for pre-operative examination: Plan: - Cardio= 11/20/17= " Given her negative dobutamine stress echocardiogram (03/2017 ) and uncomplicated prior arthroplasty, no further testing necessary before proceeding with future orthopedic surgery." Chart Review Chart Review: Acceptable Risk for Surgery and Patient seen in Pre Admission Testing Teaching & Discussion Pre-Anesthesia Teaching/Discussion Notes: Instructed NPO after midnight before surgery,except medications with 15 cc of water. Medication instructions provided according to the PAT guidelines. History Surgery Operation Date: 02/01/18 13:00 Proposed Procedures p Total Shoulder Arthroplasty Reverse - David Green MD Height/Weight Height: 5 ft 3 in Weight: 63.3 kg Allergies Allergy/AdvReac Type Severity Reaction Status Date / Time ergotamine AdvReac Intermediate vomiting Verified 07/13/17 06:37 nitroglycerin AdvReac Unknown "PROJECTILE Verified 01/23/18 13:45 VOMITTING" Medications Home Medications Medication Instructions Recorded Confirmed Last Taken [place] 5 - 325 mg PO UD PRN 01/23/18 01/23/18 Unknown buspirone 10 mg PO BID 01/23/18 01/23/18 Unknown clopidogrel [Plavix] 75 mg PO QAM 01/23/18 01/23/18 Unknown diphenoxylate-atropine [Lomotil] 1 tab PO QID PRN 01/23/18 01/23/18 Unknown escitalopram oxalate [Lexapro] 15 mg PO QAM 01/23/18 01/23/18 Unknown ferrous sulfate 325 mg PO DAILY 01/23/18 01/23/18 Unknown gabapentin 800 mg PO TID 01/23/18 01/23/18 Unknown levothyroxine [Levoxyl] 100 mcg PO QAM 01/23/18 01/23/18 Unknown lisinopril 2.5 mg PO QAM 01/23/18 01/23/18 Unknown methocarbamol 500 mg PO TID 01/23/18 01/23/18 Unknown metoprolol succinate [Toprol XL] 25 mg PO QAM 01/23/18 01/23/18 Unknown misoprostol 100 mcg PO QID 01/23/18 01/23/18 Unknown oxybutynin chloride 10 mg PO QAM 01/23/18 01/23/18 Unknown pantoprazole [Protonix] 40 mg PO BID 01/23/18 01/23/18 Unknown quetiapine [Seroquel] 50 mg PO HS 01/23/18 01/23/18 Unknown rosuvastatin [Crestor] 40 mg PO QAM 01/23/18 01/23/18 Unknown Past Medical History Medical History Acid reflux OCCASIONAL Anemia Arthritis CAD (coronary artery disease) 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 CVA (cerebral vascular accident) 2012= NO RESIDUAL DEFICITS Depression History of blood transfusion 2012 2/2 GASTRIC ULCER History of gastric ulcer 2012 Hypertension Hypothyroidism Spinal stenosis Past Surgical History Surgical History History of abdominoplasty PANNICULECTOMY History of arthroplasty of left hip History of arthroplasty of left shoulder 07/13/17= LMA#4 UNIQUE + PNB AT [facility] History of arthroplasty of right hip History of cardiac catheterization 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 History of colonoscopy History of hysterectomy with oophorectomy History of open heart surgery 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 Right shoulder pain with RUE radiculopathy; B/L hand neuropathy. Patient denies chest pain, shortness of breath, cough, wheezing, palpitations. Physical Exam Vital Signs VITALS BP 122/72 P 68 TEMP 99.0 RESP 18 SP02 98%RA Full neck and c-spine range of motion. Full TMJ range of motion. TMD 2.5 finger breaths Mallampati Score 3 Dentition: intact Lungs: clear throughout to auscultation Cardiac: regular rate and rhythm, no murmurs noted Spine: normal Carotid arteries: negative bruit Extremities: no edema Testing Electrocardiogram Date: 10/10/17 NSR at 76bpm. *Poor data quality* Chest X-Ray Date: 07/02/17 Findings: + NAD Severe levoscoliosis of the lumbar spine. Echocardiogram Date: 11/11/14 EF 60%. No RWMA. Mild MR/TR. AV sclerosis. Stress Test Date: 04/10/17 Type: DSE Negative DSE/EKG for myocardial ischemia at 87% MPHR. ECHO images showed progressive augmentation of all ocasio and appropriate reduction in LV end systolic cavity size. Mild AV sclerosis. Mild TR/MR. Laboratory Results 01/25/18 11:45 01/25/18 11:45 Blood Type AB Positive 01/25/18 11:45 Antibody Screen NEGATIVE 01/25/18 11:45 PT 11.3 Seconds (9.0-12.0) 01/25/18 11:45 INR 1.1 (0.9-1.1) 01/25/18 11:45 APTT 24.7 Seconds (21.0-31.0) 01/25/18 11:45 Hemoglobin A1c 5.7 % (4.5-5.6) H 01/25/18 11:45 Urine Color Yellow 01/25/18 Unknown Urine Appearance Clear (Clear) 01/25/18 Unknown Urine pH 5.0 (4.5-7.5) 01/25/18 Unknown Ur Specific [place] 1.017 (1.000-1.030) 01/25/18 Unknown Urine Protein Negative (Negative) 01/25/18 Unknown Urine Glucose (UA) Negative (Negative) 01/25/18 Unknown Urine Ketones Negative (Negative) 01/25/18 Unknown Urine Nitrite Negative (Negative) 01/25/18 Unknown Ur Leukocyte Esterase Negative (Negative) 01/25/18 Unknown
--- NOTE | 2018-01-25 11:44 | PAT Medication Instructions ---
Medication Instructions Date of Service January 25, 2018 Home Medications Narco 5 - 325 mg PO UD PRN buspirone 10 mg PO BID clopidogrel [Plavix] 75 mg PO QAM diphenoxylate-atropine [Lomotil] 1 tab PO QID PRN escitalopram oxalate [Lexapro] 15 mg PO QAM ferrous sulfate 325 mg PO DAILY gabapentin 800 mg PO TID levothyroxine [Levoxyl] 100 mcg PO QAM lisinopril 2.5 mg PO QAM methocarbamol 500 mg PO TID metoprolol succinate [Toprol XL] 25 mg PO QAM misoprostol 100 mcg PO QID oxybutynin chloride 10 mg PO QAM pantoprazole [Protonix] 40 mg PO BID quetiapine [Seroquel] 50 mg PO HS rosuvastatin [Crestor] 40 mg PO QAM ASK your surgeon for instructions misoprostol 100 mcg PO QID ASK your prescriber and surgeon clopidogrel [Plavix] 75 mg PO QAM DO NOT take the morning of surgery diphenoxylate-atropine [Lomotil] 1 tab PO QID PRN ferrous sulfate 325 mg PO DAILY lisinopril 2.5 mg PO QAM methocarbamol 500 mg PO TID Take morning of surgery With a small sip of water, OTHERWISE NOTHING TO EAT OR DRINK AFTER MIDNIGHT: Narco 5 - 325 mg PO UD PRN (okay to take up to 4 hours prior to surgery if needed) buspirone 10 mg PO BID escitalopram oxalate [Lexapro] 15 mg PO QAM gabapentin 800 mg PO TID levothyroxine [Levoxyl] 100 mcg PO QAM metoprolol succinate [Toprol XL] 25 mg PO QAM oxybutynin chloride 10 mg PO QAM pantoprazole [Protonix] 40 mg PO BID rosuvastatin [Crestor] 40 mg PO QAM Take evening before surgery Narco 5 - 325 mg PO UD PRN (if needed) buspirone 10 mg PO BID diphenoxylate-atropine [Lomotil] 1 tab PO QID PRN (if needed) gabapentin 800 mg PO TID methocarbamol 500 mg PO TID pantoprazole [Protonix] 40 mg PO BID quetiapine [Seroquel] 50 mg PO HS Other Notes If you have any questions please call us at [phone] or [phone] or [phone] or [phone]
[2018-01-25 12:40] LABS: Basophils # (auto) 0.03 K/uL (0-0.2); Basophils % (auto) 0.5 %; Eosinophils # (auto) 0.36 K/uL (0-0.5); Eosinophils % (auto) 6.5 %; Hemoglobin 11.3 g/dL (12.0-16.0); Immature Granulocytes # (auto) 0.02 K/uL (0.00-0.02); Immature Granulocytes % (auto) 0.4 %; Lymphocytes # (auto) 1.96 K/uL (1.2-3.4); Lymphocytes % (auto) 35.4 %; Mean Corpuscular Hgb Conc 32.3 g/dL (32-36); Mean Corpuscular Volume 95.1 fL (80-100); Mean Platelet Volume 10.6 fL (7.4-10.4); Monocytes # (auto) 0.57 K/uL (0.11-0.59); Monocytes % (auto) 10.3 %; Neutrophils # (auto) 2.59 K/uL (1.4-6.5); Neutrophils % (auto) 46.9 %; Platelet Count 162 K/uL (130-400); RDW Coefficient of Variation 14.1 % (11.5-14.5); Red Blood Count 3.68 M/uL (4.2-5.4); White Blood Count 5.53 K/uL (4.8-10.8)
[2018-01-25 12:54] LABS: Estimated Average Glucose 117 mg/dl
[2018-01-25 13:03] LABS: Albumin Level 3.6 gm/dl (3.4-5.0); BUN Creatinine Ratio 19.7 (10-20); Calcium 9.6 mg/dl (8.5-10.1); Creatinine Clr Calc Pharmacy 28.4 ml/min; Est GFR (African American) 41.1; Est GFR (Non-African American) 35.5; Potassium 4.3 mmol/L (3.5-5.1)
[2018-01-25 13:18] LABS: Appearance Urine Clear (Clear); Bilirubin Urine Negative (Negative); Color Urine Yellow; Glucose Urine UA Negative (Negative); Ketones Urine Negative (Negative); Leukocyte Esterase Urine Negative (Negative); Nitrite Urine Negative (Negative); Protein Urine Negative (Negative); Specific Gravity Urine 1.017 (1.000-1.030); Urobilinogen Urine Negative (Negative)
[2018-01-25 13:19] LABS: INR 1.1 (0.9-1.1); Partial Thromboplastin Time 24.7 Seconds (21.0-31.0); Prothrombin Time 11.3 Seconds (9.0-12.0)
--- NOTE | 2018-02-25 15:20 | History & Physical Report ---
Date of Service February 25, 2018 Assessment & Plan (1) Primary osteoarthritis, right shoulder: Patient has significant osteoarthritis and degenerative changes in her right shoulder. Treatment options were discussed and would like to proceed with right reverse total shoulder arthroplasty. She had left reverse tsa in June and procedure was well tolerated. Risks, benefits and alternatives to surgery including but not limited to infection, DVT, pain, stiffness, need for revision surgery, damage to blood vessels, damage to nerves, PE, , were discussed with the patient and they wish to proceed . All questions answered and reassurance given. Patient plans to return home with home health PT upon discharge. She will follow up post operatively. History of Present Illness Chief Complaint: Right shoulder pain Primary Care Provider: Con Coughlin MD Patient is an 79 year old female with complaints of chronic right shoulder pain. She has failed conservative measures including anti-inflammatory medications and cortisone injections. Treatment options were discussed and she would like to proceed with right reverse total shoulder arthroplasty. She has had previous left reverse TSA in June of this year. Patient denies headaches, sweats, fevers, chills, double vision, blurred vision, cough, sore throat, dysphagia, wheezing, n/v/d/c, numbness, tingling, fatigue, urinary symptoms, mood disorders. ROS positive for right shoulder pain and stiffness. She also had an episode of chest tightness and sob in December, no issues since. Previously was scheduled for January but cancelled due to not discontinuing her Plavix. She does have appointment with her director of planning this week for an updated clearance. Allergies Allergy/AdvReac Type Severity Reaction Status Date / Time ergotamine AdvReac Intermediate vomiting Verified 07/13/17 06:37 nitroglycerin AdvReac Unknown "PROJECTILE Verified 01/23/18 13:45 VOMITTING" Home Medications Home Medications Medication Instructions Recorded Confirmed Type Narco 5 - 325 mg PO UD PRN 01/23/18 01/23/18 History buspirone 10 mg PO BID 01/23/18 01/23/18 History clopidogrel [Plavix] 75 mg PO QAM 01/23/18 01/23/18 History diphenoxylate-atropine [Lomotil] 1 tab PO QID PRN 01/23/18 01/23/18 History escitalopram oxalate [Lexapro] 15 mg PO QAM 01/23/18 01/23/18 History ferrous sulfate 325 mg PO DAILY 01/23/18 01/23/18 History gabapentin 800 mg PO TID 01/23/18 01/23/18 History levothyroxine [Levoxyl] 100 mcg PO QAM 01/23/18 01/23/18 History lisinopril 2.5 mg PO QAM 01/23/18 01/23/18 History methocarbamol 500 mg PO TID 01/23/18 01/23/18 History metoprolol succinate [Toprol XL] 25 mg PO QAM 01/23/18 01/23/18 History misoprostol 100 mcg PO QID 01/23/18 01/23/18 History oxybutynin chloride 10 mg PO QAM 01/23/18 01/23/18 History pantoprazole [Protonix] 40 mg PO BID 01/23/18 01/23/18 History quetiapine [Seroquel] 50 mg PO HS 01/23/18 01/23/18 History rosuvastatin [Crestor] 40 mg PO QAM 01/23/18 01/23/18 History Past Med/Surg History Medical History Acid reflux OCCASIONAL Anemia Arthritis CAD (coronary artery disease) 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 CVA (cerebral vascular accident) 2012= NO RESIDUAL DEFICITS Depression History of blood transfusion 2012 2/2 GASTRIC ULCER History of gastric ulcer 2012 Hypertension Hypothyroidism Spinal stenosis Surgical History History of abdominoplasty PANNICULECTOMY History of arthroplasty of left hip History of arthroplasty of left shoulder 07/13/17= LMA#4 UNIQUE + PNB AT [facility] History of arthroplasty of right hip History of cardiac catheterization 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 History of colonoscopy History of hysterectomy with oophorectomy History of open heart surgery 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 Social History Current Living Situation: Alone Other Information That Helps Us Care for You: Yes (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) Feels Safe at Home: Yes Smoking Status: Never smoker Do You Dip or Chew Tobacco: No Hx Alcohol Use: No Hx Substance Use: No Beliefs That Will Affect Care: None Preferred Language: Upper Sorbian Communication Ability: Effective Pocket Closer Required: No Review of Systems All systems reviewed & are unremarkable except as noted in HPI & below Physical Exam 2 Constitutional: well developed and well nourished; no acute distress Eyes: PERRL, conjunctivae normal, anicteric sclerae ENMT: external ear and nose normal, oropharynx normal Neck: trachea midline, no thyromegaly Respiratory: normal respiratory effort, lungs clear to auscultation Cardiovascular: RRR, no murmur, no edema Vessels: no carotid bruit Musculoskeletal: Right shoulder-Pain and crepitus with ROM. Abduction 0-60, FF 0-70, ER-0-10. Strength 3/5 supraspinatus and infraspinatus. Skin: no rashes, warm and dry Neurologic: normal touch/pain/proprioception Psychiatric: A+Ox3, euthymic affect Results & Data Laboratory Results Lab Results 01/25/18 01/25/18 01/25/18 Range/Units 11:45 11:45 11:45 WBC 5.53 (4.8-10.8) K/uL RBC 3.68 L (4.2-5.4) M/uL Hgb 11.3 L (12.0-16.0) g/dL Hct 35.0 L (37-47) % MCV 95.1 (80-100) fL MCH 30.7 (25-34) pg MCHC 32.3 (32-36) g/dL RDW Std Deviation 49.0 H (36.4-46.3) fL RDW Coeff of Howie 14.1 (11.5-14.5) % Plt Count 162 (130-400) K/uL MPV 10.6 H (7.4-10.4) fL Immature Gran % (Auto) 0.4 % Neut % (Auto) 46.9 % Lymph % (Auto) 35.4 % Dickey % (Auto) 10.3 % Eos % (Auto) 6.5 % Baso % (Auto) 0.5 % Immature Gran # (Auto) 0.02 (0.00-0.02) K/uL Neut # (Auto) 2.59 (1.4-6.5) K/uL Lymph # (Auto) 1.96 (1.2-3.4) K/uL Dickey # (Auto) 0.57 (0.11-0.59) K/uL Eos # (Auto) 0.36 (0-0.5) K/uL Baso # (Auto) 0.03 (0-0.2) K/uL PT 11.3 (9.0-12.0) Seconds INR 1.1 (0.9-1.1) APTT 24.7 (21.0-31.0) Seconds PTT Ratio 1.0 Sodium 138 (136-145) mmol/L Potassium 4.3 (3.5-5.1) mmol/L Chloride 106 (98-107) mmol/L Carbon Dioxide 27 (21-32) mmol/L Anion Gap 5.0 (3-11) BUN 27 H (7-18) mg/dl Creatinine 1.39 H (0.6-1.2) mg/dl Est Cr Clr Drug Dosing 28.4 ml/min Est GFR ( Amer) 41.1 Est GFR (Non-Af Amer) 35.5 BUN/Creatinine Ratio 19.7 (10-20) Glucose 74 (70-99) mg/dl Estimat Average Glucose mg/dl Hemoglobin A1c (4.5-5.6) % Calcium 9.6 (8.5-10.1) mg/dl Albumin 3.6 (3.4-5.0) gm/dl Urine Color Urine Appearance (Clear) Urine pH (4.5-7.5) Ur Specific [place] (1.000-1.030) Urine Protein (Negative) Urine Glucose (UA) (Negative) Urine Ketones (Negative) Urine Blood (Negative) Urine Nitrite (Negative) Urine Bilirubin (Negative) Urine Urobilinogen (Negative) Ur Leukocyte Esterase (Negative) Blood Type Antibody Screen 01/25/18 01/25/18 01/25/18 Range/Units 11:45 11:45 Unknown WBC (4.8-10.8) K/uL RBC (4.2-5.4) M/uL Hgb (12.0-16.0) g/dL Hct (37-47) % MCV (80-100) fL MCH (25-34) pg MCHC (32-36) g/dL RDW Std Deviation (36.4-46.3) fL RDW Coeff of Howie (11.5-14.5) % Plt Count (130-400) K/uL MPV (7.4-10.4) fL Immature Gran % (Auto) % Neut % (Auto) % Lymph % (Auto) % Dickey % (Auto) % Eos % (Auto) % Baso % (Auto) % Immature Gran # (Auto) (0.00-0.02) K/uL Neut # (Auto) (1.4-6.5) K/uL Lymph # (Auto) (1.2-3.4) K/uL Dickey # (Auto) (0.11-0.59) K/uL Eos # (Auto) (0-0.5) K/uL Baso # (Auto) (0-0.2) K/uL PT (9.0-12.0) Seconds INR (0.9-1.1) APTT (21.0-31.0) Seconds PTT Ratio Sodium (136-145) mmol/L Potassium (3.5-5.1) mmol/L Chloride (98-107) mmol/L Carbon Dioxide (21-32) mmol/L Anion Gap (3-11) BUN (7-18) mg/dl Creatinine (0.6-1.2) mg/dl Est Cr Clr Drug Dosing ml/min Est GFR ( Amer) Est GFR (Non-Af Amer) BUN/Creatinine Ratio (10-20) Glucose (70-99) mg/dl Estimat Average Glucose 117 mg/dl Hemoglobin A1c 5.7 H (4.5-5.6) % Calcium (8.5-10.1) mg/dl Albumin (3.4-5.0) gm/dl Urine Color Yellow Urine Appearance Clear (Clear) Urine pH 5.0 (4.5-7.5) Ur Specific [place] 1.017 (1.000-1.030) Urine Protein Negative (Negative) Urine Glucose (UA) Negative (Negative) Urine Ketones Negative (Negative) Urine Blood Negative (Negative) Urine Nitrite Negative (Negative) Urine Bilirubin Negative (Negative) Urine Urobilinogen Negative (Negative) Ur Leukocyte Esterase Negative (Negative) Blood Type AB Positive Antibody Screen NEGATIVE Diagnostic Findings Right shoulder x-rays: [id number] GH joint, humeral head elevation, medialization of humeral head on glenoid. Significant degenerative changes
[~2018-02-28 08:44] MED LIST changes: -ACET-24 PO; +ACETAMINOPHEN 500 MG TAB PO SCH; -BSP/10 PO; +BUPIVACAINE/EPINEPHRINE 0.5% MPF 1:200,000 30 ML VIAL ONE; +CEFAZOLIN 1000MG 1,000 MG/7.5 ML SYR IV SCH; -CLB100 PO; -CLOP1TAB15 PO; +CeleBREX 200 MG CAP PO SCH; -DIPH-416 PO; +EPINEPHrine INJ 1 MG/ML AMP ONE; -ESCI1TAB6 PO; -ESCI1TAB9 PO; +FAMOTIDINE 20 MG TAB PO SCH; -FERR1TAB62 PO; +GABAPENTIN 300 MG PO SCH; -LEVO100T7 PO; +LR 15ML/HR IV SCH; -LSN25 PO; -METH-445 PO; +METOCLOPRAMIDE HCL 10 MG TABLET PO SCH; -MISO1TAB10 PO; -MULT-506 PO; -NRN800 PO; -ONDA4TAB9 PO; -PANT40TA2 PO; -PROM25TA16 PO; -QUET1TAB30 PO; +ROPIVACAINE 0.5% 5 MG/ML 30 ML VIAL ONE; +ROPIVACAINE 0.5% HCL/PF 150 MG, BUPIVACAINE 0.5% MPF 30 ML, EPINEPHrine 30MG/30ML (OR U... INFIL SCH; -ROSU40TA PO; -RXC5 PO; -TPRSR/25 PO; +TRANEXAMIC ACID 1,000 MG **IV Intra-op IV SCH; +TRANEXAMIC ACID 1,000 MG **IV Pre-op IV SCH; +dexAMETHasone 4 MG TAB PO SCH
[2018-02-28] MEDS ORDERED: fentaNYL citrate 100 MCG/2 ML VIAL ONE (11:59)
[2018-02-28] MEDS ORDERED: MIDAZOLAM HCL 1 MG/ML 2ML VIAL ONE (11:59)
[2018-02-28] MEDS ORDERED: ROCURONIUM BROMIDE 10 MG/ML 5 ML VIAL ONE (12:00)
[2018-02-28] MEDS ORDERED: LIDOCAINE HCL 2% 2 ML VIAL/AMP(20MG/ML) INFIL ONE (12:00)
[2018-02-28] MEDS ORDERED: ONDANSETRON INJ 2 MG/ML 2 ML VIAL ONE (12:00)
[2018-02-28] MEDS ORDERED: PROPOFOL IV EMULSION 10 MG/ML 20 ML VIAL IV ONE (12:00)
--- NOTE | 2018-02-28 12:16 | History & Physical Bridge Note ---
Date of Service February 28, 2018 History & Physical Bridge Note I have examined the patient, reviewed the History & Physical and in the interval since the performance of the History & Physical I have noted the following changes of clinical significance: no changes noted
[2018-02-28] MEDS ORDERED: POVIDONE-IODINE OP SOLN 30 ML BTL ONE (13:08)
[2018-02-28] MEDS ORDERED: VANCOMYCIN HCL 1000MG/20ML VIAL ONE (13:08)
[2018-02-28] MEDS ORDERED: ORTHO JOINT ANESTHETIC ONE (13:08)
[2018-02-28] MEDS ORDERED: BACITRACIN INJ 50,000 UNIT VIAL ONE (13:08)
[2018-02-28] MEDS ORDERED: THROMBIN FOR SOLN 20000 UNIT KIT ONE (13:08)
[2018-02-28] MEDS ORDERED: TRANEXAMIC ACID 1,000 MG in 0.9 % SODIUM CHLORIDE 100 ML TOP SCH (13:30)
--- NOTE | 2018-02-28 15:23 | Operative Report ---
Post Operative Report Pre & Post Diagnosis Operation Date: 02/28/18 11:00 Pre-Op Diagnosis: Right Shoulder Osteoarthritis Post-Op Diagnosis: Right Shoulder Osteoarthritis, biceps tendon tear Procedure Operation Date: 02/28/18 11:00 Actual Procedures p Right Reversed Total Shoulder Arthroplasty--Uncemented(Right), biceps tenodesis - David Green MD Surgeon David Green MD [employer] Jesus Manuel Norton PA-C Estimated Blood Loss 50 Findings Consistent with Post-Op Diagnosis Specimens humeral head Drains 1 hemovac drain Anesthesia Type General Regional Complications none Disposition Accompanied Patient To Recovery: No Disposition: Recovery Room Indications The patient is an 79-year-old female with long-standing arthritic change of the right shoulder. She has significant medial wear and is [id number] glenohumeral joint. She is failed conservative measures and wishes to proceed with a right reverse total shoulder arthroplasty Description of Procedure Risks, benefits and alternatives to surgery including, but not limited to, infection DVT, pain, stiffness, need for revision surgery, failure to relieve all symptoms, damage to blood vessels, damage to nerves, risk of anesthesia were discussed with the patient and they wished to proceed. The patient was identified. Laterality was confirmed and marked. The patient received a preoperative antibiotic as well as an interscalene block. They were transferred to the operating room and placed in the supine position and induced into general endotracheal anesthesia per the anesthesia staff. The patient was then safely transferred to a slight beachchair position. The patient was secured in the Tenet positioner. All pressure points were well padded. The shoulder was prepped and draped in the usual sterile manner with ChloraPrep. The arm was secured in the Spider huber. I made a longitudinal incision just lateral to the coracoid, sharply incising through the skin and utilizing Bovie electrocautery to achieve hemostasis. I identified the cephalic vein and mobilized it laterally with the deltoid. I mobilize the pectoralis and mobilize this medially releasing a small portion of the upper border of the pec tendon to improve visualization. I then identified and mobilized the conjoined tendon. I identified the long head of the biceps tendon. The long head of the biceps tendon had significant tendinosis and tearing proximally. I performed an in situ biceps tenodesis with interrupted #2 FiberWire suture. I then released the subscapularis. I pinned into place my humeral head version cutting guide and made my humeral head resection. I then sequentially reamed and sequentially broached. I then placed the trial humeral stem into the shoulder. I placed retractors around the glenoid and then excised the residual biceps tendon stump and glenoid labrum. I elevated the soft tissues and the inferior aspect of the glenoid to improve exposure and released tissues circumferentially. I then positioned and drilled for the central post for the glenoid plate. The glenoid plate was bone grafted with bone taken from the humeral head. I impacted the definitive glenoid plate into position and then placed a total of 4 compression screws that were then locked into position with locking caps. I then placed the glenosphere onto the plate and secured it with a locking screw. I then removed the trial humeral stem and placed the definitive humeral stem. I trialed off of the definitive stem. The definitive components used were [employer] Equinox: Preserve short humeral press-fit stem: 6 Standard glenoid plate Glenosphere: 38 Humeral tray:+ 0 Humeral polyethylene liner: + 2.5 I thoroughly irrigated the wound. Deep tissues were anesthetized with an orthomix solution. I then locked my definitive humeral tray into position with a torque limiting screw. I then impacted the definitive humeral polyethylene liner into position. I then reduced the shoulder. There was good range of motion and good stability after the reduction. The wound was again thoroughly irrigated and a Betadine soak was performed. A soak with TXA was performed. A deep drain was placed. The deltopectoral interval was closed with interrupted # 1 Ethibond suture. The subcutaneous tissue was closed with interrupted 2-0 Vicryl suture. The skin was closed with yrn. A sterile dressing was applied. A sling was placed. All needle and sponge counts were correct at the end of the procedure. The patient was transferred to the PACU in stable condition without apparent complication. The PA-C was necessary for assistance with procedure for assistance in positioning, prepping, draping, retraction and closure. I attest to the content of the Intraoperative Record and any orders documented therein. Any exceptions are noted below.
[2018-02-28] MEDS ORDERED: POLYETHYLENE (MIRALAX) 17 GM PACK PO PRN (16:02)
[2018-02-28] MEDS ORDERED: BISACODYL 10 MG SUPP PR PRN (16:02)
[2018-02-28] MEDS ORDERED: MAGNESIUM HYDROXIDE SUSP 30 ML UDC PO PRN (16:02)
--- NOTE | 2018-02-28 16:22 | XRay Report ---
XR shoulder RT min 2V routine CLINICAL HISTORY: Post shoulder surgery DEGENERATIVE ARTHRITIS COMPARISON: 08/12/2015 DISCUSSION: There are postsurgical changes of a reverse total right shoulder arthroplasty. There are overlying skin yrn and surgical drains. There is no dislocation. IMPRESSION: Postsurgical of a reverse total right shoulder arthroplasty. No dislocation. Electronically signed by: Niels Chavez M.D. 02/28/2018 4:21 PM
[2018-02-28] MEDS ORDERED: ePHEDrine sulfate 50 MG/ML AMP IV PRN (16:26)
[2018-02-28] MEDS ORDERED: fentaNYL citrate 100 MCG/2 ML VIAL IV PRN (16:26)
[2018-02-28] MEDS ORDERED: ONDANSETRON INJ 2 MG/ML 2 ML VIAL IV PRN (16:26)
[2018-02-28] MEDS ORDERED: ATROPINE SULFATE 0.1 MG/ML 10ML SYR IV PRN (16:26)
[2018-02-28] MEDS ORDERED: HYDROmorphone INJ 1 MG/ML SYRINGE IV PRN (16:26)
[2018-02-28] MEDS ORDERED: PHENYLEPHRINE 100MCG/ML 5ML SYR IV PRN (16:26)
[2018-02-28] MEDS ORDERED: LABETALOL HCL IV 5 MG/ML 20ML IV PRN (16:26)
--- NOTE | 2018-02-28 16:30 | Anesthesiology Progress Note ---
Date of Service February 28, 2018 Anesthesia Post Procedure Vital Signs Vital Signs: Temp Pulse Pulse Resp BP Pulse Ox 02/28/18 16:20 72 18 102/53 L 100 02/28/18 16:10 71 12 102/56 L 99 02/28/18 16:03 36.2 C L 74 16 114/58 L 100 02/28/18 09:38 36.8 C 70 18 99/63 L 98 Notes Mental Status: alert / awake / arousable Patient Amnestic to Procedure: Yes Nausea / Vomiting: adequately controlled Pain: adequately controlled Airway Patency, RR, SpO2: stable & adequate BP & HR: stable & adequate Hydration State: stable & adequate Anesthetic Complications: no major complications apparent and Pt Satisfied with anesthetic care
[2018-02-28] MEDS ORDERED: PHARMACY GLYCEMIC MGMT CONSULT PRN (17:54)
[2018-02-28] MEDS: SODIUM CHLORIDE 0.9% 1000ML 1,000 ML IV SCH (17:58)
[2018-02-28] MEDS ORDERED: GLUCOSE 40% GEL 15 GM TUBE PO PRN (18:18)
[2018-02-28] MEDS ORDERED: GLUCOSE 10 TABS/TUBE PO PRN (18:18)
[2018-02-28] MEDS ORDERED: GLUCAGON FOR INJ 1 MG VIAL IM PRN (18:18)
[2018-02-28] MEDS ORDERED: DEXTROSE 50% 50 ML SYRINGE IV PRN (18:18)
[2018-02-28] MEDS ORDERED: CARBOHYDRATES FOR HYPOGLYCEMIA PO PRN (18:18)
--- NOTE | 2018-02-28 18:22 | Consultation ---
Date of Consultation February 28, 2018 Assessment & Plan (1) S/p reverse total shoulder arthroplasty: POD #0 s/p Reverse TSA by Dr. Green EBL 50ml tolerated the procedure well -pain/wound management per ortho -activity, therapy per ortho -DVT prophylaxis per therapy -Incentive spirometry -follow cbc, bmp (2) Primary osteoarthritis, right shoulder: -plan as above (3) Hypertension: -blood pressure controlled on metoprolol, lisinopril (4) Chronic kidney disease stage 3: -baseline cr 1.0 -pre op lab work bun 27/cr 1.39 -follow bmp (5) Hypothyroidism: -continue levothyroxine (6) CAD (coronary artery disease): -no chest pain/sob -continue plavix, statin, BB, VIKKI (7) CVA (cerebral vascular accident): -hx of CVA in past w/o residual deficit -continue plavix, statin and risk reduction therapy (8) Anemia: -preop H/H 11.3/35.0 -normocytic normochromic -on iron supplement outpatient -follow cbc for abl anemia (9) GERD (gastroesophageal reflux disease): -continue PPI and misoprostol due to hx of gastric ulcer -asymptomatic (10) Anxiety: -continue buspar, lexaprol -mood stable (11) DVT prophylaxis: -SCD, early ambulatin per ortho Disposition: per Ortho Follow up: PCP Dr. Flores upon discharge Patient seen in collaboration with Dr. Arreguin, please see addendum Starting 03/01/17 patient will be followed by Dr. Paredes Thank you for this consultation. We will follow the patient with you during their hospital stay. You [facility] a [facility] via pager @ [phone]. Supervising Physician Co-Signing Physician Notes HISTORY: Record reviewed. Patient interviewed and examined in her room. Care coordinated with Rivka Flores PA-C. Please refer to her documentation for patient's history. Briefly, 79 YO F with history of ischemic heart disease and other problems as noted. Underwent right reversed shoulder arthroplasty today. Doing well postoperatively. No chest pain, cough, SOB, nausea, vomiting. Pain well-controlled. EXAM: General- no distress Lungs- clear to auscultation; no respiratory distress Cardiovascular- RRR; no gallop; no JVD; no pretibial edema Abdomen- + bowel sounds, soft, nontender Extremities- RUE immobilized; no cyanosis; no calf tenderness Neuro- alert, oriented Skin- warm & dry DATA: Fingerstick blood sugar 146. ASSESSMENT AND PLAN: S/P right reversed shoulder arthroplasty Doing well postoperatively. Cardiovascular status stable- continue usual meds. CKD- watch labs, be careful with NSAID's. Please refer to SEA Flores's documentation for discussion of other issues. Thank you for this consultation. We will follow the patient with you during their hospital stay. My cell # is [phone]. Dr. Paredes will be assuming medical management Wednesday 03/01. You can reach a member of the [facility] Team 11/09 via pager @ [phone]. History of Present Illness Reason for Consultation: Postop medical management Requesting Physician: Dr. Green Attending Physician: David Green MD History of Present Illness This is a 79-year-old white female with significant past medical history of CAD with history of CABG x2 in 1998, HTN, HLD, hypothyroidism, CKD stage III, anxiety, GERD, osteoarthritis who presents to [facility] for elective reverse right total shoulder arthroplasty with biceps tenodesis by Dr. Green. Patient failed outpatient conservative treatment. She also underwent left reverse total shoulder arthroplasty in June/2017. She tolerated the procedure well and offers no postoperative complaints. Complains of numbness and tingling to right upper extremity but otherwise denies pain. Has not had anything to eat yet and is awaiting dinner. Denies f/c/s, chest pain, sob, dizziness, lightheaded, n/v/d. Prior to procedure had no difficulty passing urine or moving bowel. Allergies Allergy/AdvReac Type Severity Reaction Status Date / Time ergotamine AdvReac Intermediate vomiting Verified 02/28/18 09:20 nitroglycerin AdvReac Unknown "PROJECTILE Verified 02/28/18 09:20 VOMITTING" Home Medications Home Medications Medication Instructions Recorded Confirmed Type buspirone 10 mg PO BID 01/23/18 02/28/18 History clopidogrel [Plavix] 75 mg PO QAM 01/23/18 02/28/18 History diphenoxylate-atropine [Lomotil] 1 tab PO QID PRN 01/23/18 02/28/18 History escitalopram oxalate [Lexapro] 15 mg PO QAM 01/23/18 02/28/18 History ferrous sulfate 325 mg PO DAILY 01/23/18 02/28/18 History gabapentin 800 mg PO TID 01/23/18 02/28/18 History levothyroxine [Levoxyl] 100 mcg PO QAM 01/23/18 02/28/18 History lisinopril 2.5 mg PO QAM 01/23/18 02/28/18 History methocarbamol 500 mg PO TID 01/23/18 02/28/18 History metoprolol succinate [Toprol XL] 25 mg PO QAM 01/23/18 02/28/18 History misoprostol 100 mcg PO QID 01/23/18 02/28/18 History oxybutynin chloride 10 mg PO QAM 01/23/18 02/28/18 History pantoprazole [Protonix] 40 mg PO BID 01/23/18 02/28/18 History quetiapine [Seroquel] 50 mg PO HS 01/23/18 02/28/18 History rosuvastatin [Crestor] 40 mg PO QAM 01/23/18 02/28/18 History hydrocodone-acetaminophen [Tarzana] 1 tab PO Q6H PRN 02/28/18 02/28/18 History Patient History Medical History Hypertension Hypothyroidism Arthritis Spinal stenosis Acid reflux OCCASIONAL CAD (coronary artery disease) 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 Anemia Depression History of gastric ulcer 2013 History of blood transfusion 2012 2/2 GASTRIC ULCER Surgical History History of open heart surgery 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 History of arthroplasty of left shoulder 07/13/17= LMA#4 UNIQUE + PNB AT [facility] History of hysterectomy with oophorectomy History of arthroplasty of left hip History of arthroplasty of right hip History of colonoscopy History of cardiac catheterization 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 History of abdominoplasty PANNICULECTOMY Social History Current Living Situation: Alone Current Living Situation Comment: indepedent of adl/iadl Other Information That Helps Us Care for You: Yes (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 Physical Exam 2 Vital Signs (Past 24 Hours): Last Vital Signs Temp 36.4 C L 02/28/18 18:04 Pulse 68 02/28/18 17:38 Resp 17 02/28/18 18:04 BP 112/71 02/28/18 18:04 Pulse Ox 97 02/28/18 18:04 Physical Exam: Gen: WD/WN, elderly F, appears age, NAD, fatigued, sitting up in bed, pleasant, conversing easily Head: Normocephalic, Atraumatic Eyes: Sclera normal, no conjunctival injection, PERRLA, EOMI ENT: Gross hearing intact, normal pharynx, mucous membranes dry Neck: supple, no adenopathy, No JVD, no bruit, no thyromegaly, Resp: Clear to auscultation b/l, no wheeze, rales, rhonchi. Normal insp/exp effort, no accessory muscle use CV: Regular rate, regular rhythm, 2/6 JAN noted throughout precordium, best at base, no rub, gallop, or ectopy Abd: +BS x 4, soft, nontender, nondistended Musculoskeletal: moves extremities active rom x 3, RUE not tested given surgery , strength intact, good broadcast director operations strength. RUE in sling, NVI distally, dressing/ hemovac in place Extremities: No edema bilaterally, SCDS in place Skin: warm, moist, no rash, negative turgor, cap refill < 2sec Neuro: Alert and oriented x 3, speech normal, good mood/affect, cran nerve 2-12 intact grossly : deferred Results & Data Laboratory Results pre operative lab work H/H 11.3/35.0, WBC 5.53, plt 162 BMP: Na 138, K 4.3, Bun/Crea 27/1.34 A1C 5.7 baseline Cr 1.00 Underwent cardiology clearance by [facility] cardiology
[2018-02-28] MEDS: miSOPROStol 100 MCG TAB PO SCH ×2 (19:37→20:39)
[2018-02-28] MEDS: CEFAZOLIN 1000MG 1,000 MG/7.5 ML SYR IV SCH (20:30)
[2018-02-28] MEDS: ROSUVASTATIN CALCIUM 20 MG TAB PO SCH (20:34)
[2018-02-28] MEDS: DOCUSATE SODIUM 100 MG CAP PO SCH (20:36)
[2018-02-28] MEDS: PANTOprazole 40 MG TAB PO SCH (20:36)
[2018-02-28] MEDS: QUETIAPINE FUMARATE 25 MG TABLET PO SCH (20:37)
[2018-02-28] MEDS: METHOCARBAMOL 500 MG TABLET PO SCH (20:37)
[2018-02-28] MEDS: GABAPENTIN 800 MG TAB PO SCH (20:39)
[2018-02-28] MEDS: INSULIN ASPART 100 UNITS/ML 3 ML PEN SC SCH (21:23)
[2018-02-28] MEDS: ACETAMINOPHEN 500 MG TAB PO SCH (21:24)
[2018-03-01] MEDS: LEVOTHYROXINE SODIUM 100 MCG TABLET PO SCH (05:09)
[2018-03-01] MEDS: ACETAMINOPHEN 500 MG TAB PO SCH ×3 (05:09→21:17)
[2018-03-01] MEDS: CEFAZOLIN 1000MG 1,000 MG/7.5 ML SYR IV SCH (05:09)
[2018-03-01] MEDS: SODIUM CHLORIDE 0.9% 1000ML 1,000 ML IV SCH (05:09)
[2018-03-01] MEDS ORDERED: TRANEXAMIC ACID 1,000 MG in 0.9 % SODIUM CHLORIDE 100 ML TOP SCH (06:00)
[2018-03-01 06:28] LABS: Basophils # (auto) 0.01 K/uL (0-0.2); Basophils % (auto) 0.1 %; Hematocrit (blood only) 26.9 % (37-47); Hemoglobin 9.1 g/dL (12.0-16.0); Immature Granulocytes # (auto) 0.01 K/uL (0.00-0.02); Immature Granulocytes % (auto) 0.1 %; Lymphocytes # (auto) 0.92 K/uL (1.2-3.4); Lymphocytes % (auto) 11.9 %; Mean Corpuscular Hgb Conc 33.8 g/dL (32-36); Mean Corpuscular Volume 95.4 fL (80-100); Mean Platelet Volume 9.9 fL (7.4-10.4); Monocytes # (auto) 0.58 K/uL (0.11-0.59); Monocytes % (auto) 7.5 %; Neutrophils # (auto) 6.23 K/uL (1.4-6.5); Neutrophils % (auto) 80.4 %; Platelet Count 127 K/uL (130-400); RDW Coefficient of Variation 13.2 % (11.5-14.5); Red Blood Count 2.82 M/uL (4.2-5.4); White Blood Count 7.75 K/uL (4.8-10.8)
[2018-03-01 06:45] LABS: BUN Creatinine Ratio 24.8 (10-20); Calcium 8.5 mg/dl (8.5-10.1); Creatinine Clr Calc Pharmacy 27.6 ml/min; Est GFR (African American) 42.2; Est GFR (Non-African American) 36.4; Potassium 4.7 mmol/L (3.5-5.1)
--- NOTE | 2018-03-01 07:04 | Orthopedic Progress Note ---
Date of Service March 01, 2018 Assessment & Plan (1) S/p reverse total shoulder arthroplasty: POD#1 right reverse TSA -Pain management -DVT prophylaxis-SCDs -PT/OT -D/C planning-likely home with home health possibly tomorrow -AM labs-Hgb 9.1 this AM, chemistry pending. -Dressing change today. Subjective Patient resting comfortably in bed. Not having much pain, sensation returning to fingers and hand. Denies chest pain, SOB, n/v/d. Physical Exam 2 Vital Signs (Past 24 Hours): Last Vital Signs Temp 36.6 C 03/01/18 02:50 Pulse 63 03/01/18 02:50 Resp 16 03/01/18 02:50 BP 108/68 03/01/18 02:50 Pulse Ox 94 03/01/18 02:50 Physical Exam: Fingers mobile, sensation intact. Library Circulation Department Chief strenght wnl. N/V status intact. Dressing intact, gauze saturated. Hemovac in place.
[2018-03-01] MEDS: OXYCODONE HCL IR 5 MG TAB (IMMEDIATE RELEASE) PO PRN ×3 (07:43→16:24)
[2018-03-01] MEDS: miSOPROStol 100 MCG TAB PO SCH ×4 (07:44→21:17)
--- NOTE | 2018-03-01 07:48 | Anesthesiology Progress Note ---
Date of Service March 01, 2018 Anesthesia Post Procedure Vital Signs Vital Signs: Temp Pulse Pulse Pulse Resp BP BP 03/01/18 02:50 36.6 C 63 16 108/68 02/28/18 22:55 36.6 C 18 118/78 02/28/18 20:24 36.4 C L 60 18 121/77 02/28/18 19:00 36.4 C L 69 18 127/82 02/28/18 18:04 36.4 C L 17 112/71 02/28/18 17:38 36.7 C 68 18 120/75 02/28/18 17:01 36.5 C 71 18 92/59 L 02/28/18 16:50 69 14 106/56 L 02/28/18 16:40 71 16 104/63 02/28/18 16:30 36.2 C L 73 15 116/54 L 02/28/18 16:20 72 18 102/53 L 02/28/18 16:10 71 12 102/56 L 02/28/18 16:03 36.2 C L 74 16 114/58 L 02/28/18 09:38 36.8 C 70 18 99/63 L Pulse Ox 03/01/18 02:50 94 02/28/18 22:55 95 02/28/18 20:24 95 02/28/18 19:00 96 02/28/18 18:04 97 02/28/18 17:38 93 02/28/18 17:01 100 02/28/18 16:50 100 02/28/18 16:40 100 02/28/18 16:30 100 02/28/18 16:20 100 02/28/18 16:10 99 02/28/18 16:03 100 02/28/18 09:38 98 Notes Mental Status: alert / awake / arousable and participated in evaluation Patient Amnestic to Procedure: Yes Nausea / Vomiting: adequately controlled Pain: adequately controlled Airway Patency, RR, SpO2: stable & adequate BP & HR: stable & adequate Hydration State: stable & adequate Anesthetic Complications: no major complications apparent and Pt Satisfied with anesthetic care
[2018-03-01] MEDS: FERROUS SULFATE 325 MG TAB PO SCH (08:47)
[2018-03-01] MEDS: ESCITALOPRAM OXALATE 10 MG TAB PO SCH (08:49)
[2018-03-01] MEDS: DOCUSATE SODIUM 100 MG CAP PO SCH (08:49)
[2018-03-01] MEDS: OXYBUTYNIN CHLORIDE XL 5 MG TABCR PO SCH (08:49)
[2018-03-01] MEDS: CLOPIDOGREL BISULFATE 75 MG TAB PO SCH (08:50)
[2018-03-01] MEDS: GABAPENTIN 800 MG TAB PO SCH ×3 (08:50→21:18)
[2018-03-01] MEDS: PANTOprazole 40 MG TAB PO SCH ×2 (08:50→21:19)
[2018-03-01] MEDS: METHOCARBAMOL 500 MG TABLET PO SCH ×3 (08:51→21:20)
[2018-03-01] MEDS: METOPROLOL SUCC 25MG EXT REL TAB PO SCH (08:54)
[2018-03-01] MEDS: LISINOPRIL 2.5 MG TAB PO SCH (08:54)
[2018-03-01] MEDS: INSULIN ASPART 100 UNITS/ML 3 ML PEN SC SCH ×4 (08:55→21:16)
[2018-03-01] MEDS: MoRPHine SULFATE 2 MG/ML CARP IV PRN ×3 (09:51→21:30)
--- NOTE | 2018-03-01 09:53 | Hospitalist Progress Note ---
Addendum entered and electronically signed by Rivka Flores PA-C 11:08: Addendum (Blank) Addendum March 01, 2018 11:06 Patient was seen in collaboration with Dr. Paredes not Dr. Arreguin Error BLP Original Note: Date of Service March 01, 2018 Assessment & Plan (1) S/p reverse total shoulder arthroplasty: POD #1 s/p Reverse TSA by Dr. Green EBL 50ml She is doing well post operatively, most likely D/C home tomorrow 03/02/17 -pain/wound management per ortho -activity, therapy per ortho -DVT prophylaxis per ortho -Incentive spirometry -follow cbc, bmp (2) Primary osteoarthritis, right shoulder: -plan as above (3) Hypertension: -blood pressure controlled on metoprolol, lisinopril (4) Chronic kidney disease stage 3: -baseline cr 1.0 -Bun/Cr 34/1.36, encourage increased PO water intake. -follow bmp (5) Hypothyroidism: -continue levothyroxine (6) CAD (coronary artery disease): -no chest pain/sob -continue plavix, statin, BB, VIKKI (7) CVA (cerebral vascular accident): -hx of CVA in past w/o residual deficit -continue plavix, statin and risk reduction therapy (8) Acute blood loss anemia: -preop H/H 11.3/35.0 -normocytic normochromic -on iron supplement outpatient -H/H 9.1/26.5 -follow cbc for abl anemia (9) GERD (gastroesophageal reflux disease): -continue PPI and misoprostol due to hx of gastric ulcer -asymptomatic (10) Anxiety: -continue buspar, lexaprol -mood stable (11) DVT prophylaxis: -SCD, early ambulatin per ortho Disposition: per Ortho Follow up: PCP Dr. Flores upon discharge Patient seen in collaboration with Dr. Arreguin, please see addendum Starting today 03/01/17 patient will be followed by Dr. Paredes Thank you for this consultation. We will follow the patient with you during their hospital stay. You [facility] via pager @ [phone]. Supervising Physician Co-Signing Physician Notes ATTENDING ADDENDUM : 79 yo F s/p rt shoulder surgery has minimum pain recovering well post op medically stable Subjective Patient was seen and examined in room 312. Follow-up POD #1 S/P right reverse total shoulder arthroplasty by Dr. Green. Is currently sitting up in bedside chair, just finished breakfast. Tolerated her breakfast. Overall feels well, but is complaining of right shoulder discomfort. "I think my block is wearing off." Denies fever, chills, sweats, chest pain, shortness breath, nausea, vomiting, change in bowel or urinary habits. Is doing well postoperatively and plan is to possible DC home tomorrow. Physical Exam 2 Vital Signs (Past 24 Hours): Last Vital Signs Temp 36.9 C 03/01/18 08:04 Pulse 67 03/01/18 08:52 Resp 20 03/01/18 08:04 BP 115/63 03/01/18 08:52 Pulse Ox 94 03/01/18 08:04 Physical Exam: Gen: WD/WN, Elderly, F, sitting up in bedside chair, NAD, A&O x3 HEENT: Normocephalic, atraumatic, conjunctivae moist, sclerae anicteric, mucous membranes moist. Lung: Clear to Auscultation bilaterally, no wheezes/rales/rhonchi Heart: Regular rate, regular rhythm, 1/6 JAN noted best cardiac apex, no rubs, or gallops Abdomen: Soft, NT, ND +BS x 4 Extremities: No edema, RUE sling in place, NVI distally, dressing CDI Skin: Warm, no rash, negative turgor. Results & Data Laboratory Results Short CBC 03/01/18 Range/Units 06:04 WBC 7.75 (4.8-10.8) K/uL Hgb 9.1 L (12.0-16.0) g/dL Hct 26.9 L (37-47) % Plt Count 127 L (130-400) K/uL BMP 03/01/18 06:04 Sodium 137 Potassium 4.7 Chloride 111 H Carbon Dioxide 23 BUN 34 H Creatinine 1.36 H Glucose 132 H Calcium 8.5
--- NOTE | 2018-03-01 10:56 | Pharmacy Report ---
Glycemic Control Consultation - Date of Service March 01, 2018 - Scope Scope: Glycemic Pharmacist consulted by Dr Norton on 03/01/18 for glycemic control and to write orders per [facility] inpatient glycemic control protocol - Objective Weight: 63.004 kg Accuchecks BSG (last 24hrs): 02/28/18 02/28/18 03/01/18 18:50 20:33 06:04 Glucose 132 H POC Glucose 146 H 153 H 03/01/18 08:11 Glucose POC Glucose 133 H Laboratory Data (last 24hrs): 03/01/18 06:04 Potassium 4.7 Carbon Dioxide 23 Anion Gap 3.0 Creatinine 1.36 H Est Cr Clr Drug Dosing 27.6 HbA1c: Hemoglobin A1c 5.7 % (4.5-5.6) H 01/25/18 11:45 - Recent Pertinent Medications Outpatient Anti-diabetic Regimen: * none * A1c = 5.7 % 01/25/18 The patient is currently receiving: * Basal insulin: none * Correctional Insulin: Novolog Correction per scale ACHS Goal Range: Low 110 mg/dL - High 140 mg/dL Correction Factor: 50 mg/dL/unit * Prandial insulin: none Risk Factors for Insulin Resistance: * Steroids: DXM 8 mg preop on 02/28 * Recent Surgery: POD #1 s/p shoulder surgery * Diet: regular - Assessment & Plan Assessment & Plan: ASSESSMENT: * 79 yr old female s/p reverse total shoulder arthroplasty on 02/28 * Lavinia is not on any anti-diabetic medications as an outpatient. No mention of h/o diabetes in H&P. Her most recent A1c of 5.7% (01/25/18) indicates pre- diabetes, however she does have a h/o of anemia which makes A1c less reliable. * Despite administration of pre-op steroids, Lavinia received only 1 unit of insulin since time of admission. * Fasting BSG is at goal, 133 mg/dL. Currently no basal insulin is ordered. Will reassess need for basal on a daily basis. * Post prandial BSGs are near goal. Will continue correctional insulin only for now. Carb coverage will be added if post prandial BSGs spike. PLAN FOR INPATIENT GLYCEMIC CONTROL: * Basal insulin * none * Bolus insulin - tighten correction factor * NovoLog per scale ACHS or Q6hrs while NPO * Goal Range: Low 110 mg/dL - High 140 mg/dL * Correction Factor: 35 mg/dL/unit * Please note that the plan above was derived based on current level of insulin resistance and hospital stress. These recommendations are appropriate for inpatient admission only. Plan of care upon discharge will need to be reassessed to avoid potential outpatient hypo/hyperglycemia. Thank you.
[2018-03-01] MEDS: ONDANSETRON INJ 2 MG/ML 2 ML VIAL IV PRN (15:25)
[2018-03-01] MEDS ORDERED: DOCUSATE SODIUM 100 MG CAP PO ONE (18:40)
[2018-03-01] MEDS ORDERED: SENNA 8.6 MG TAB PO PRN (18:45)
[2018-03-01] MEDS ORDERED: DOCUSATE SODIUM 100 MG CAP PO PRN (19:00)
[2018-03-01] MEDS: DIPHENOXYLATE/ATROPINE 2.5/0.025MG TAB PO PRN (20:05)
[2018-03-01] MEDS: QUETIAPINE FUMARATE 25 MG TABLET PO SCH (21:19)
[2018-03-02] MEDS: DIPHENOXYLATE/ATROPINE 2.5/0.025MG TAB PO PRN ×2 (00:50→10:38)
[2018-03-02] MEDS: OXYCODONE HCL IR 5 MG TAB (IMMEDIATE RELEASE) PO PRN ×3 (00:53→12:42)
[2018-03-02] MEDS: LEVOTHYROXINE SODIUM 100 MCG TABLET PO SCH (05:58)
[2018-03-02] MEDS: ACETAMINOPHEN 500 MG TAB PO SCH ×3 (05:58→21:28)
[2018-03-02 07:08] LABS: Basophils # (auto) 0.01 K/uL (0-0.2); Basophils % (auto) 0.1 %; Eosinophils % (auto) 2.9 %; Hematocrit (blood only) 27.8 % (37-47); Immature Granulocytes # (auto) 0.01 K/uL (0.00-0.02); Immature Granulocytes % (auto) 0.1 %; Lymphocytes # (auto) 1.66 K/uL (1.2-3.4); Lymphocytes % (auto) 24.4 %; Mean Corpuscular Hgb Conc 32.4 g/dL (32-36); Mean Corpuscular Volume 94.9 fL (80-100); Mean Platelet Volume 9.9 fL (7.4-10.4); Monocytes # (auto) 0.59 K/uL (0.11-0.59); Monocytes % (auto) 8.7 %; Neutrophils # (auto) 4.34 K/uL (1.4-6.5); Neutrophils % (auto) 63.8 %; Platelet Count 143 K/uL (130-400); RDW Coefficient of Variation 13.4 % (11.5-14.5); RDW Standard Deviation 46.2 fL (36.4-46.3); Red Blood Count 2.93 M/uL (4.2-5.4); White Blood Count 6.81 K/uL (4.8-10.8)
[2018-03-02] MEDS: miSOPROStol 100 MCG TAB PO SCH ×4 (07:16→21:08)
[2018-03-02] MEDS: MoRPHine SULFATE 2 MG/ML CARP IV PRN (07:26)
[2018-03-02 07:44] LABS: BUN Creatinine Ratio 29.3 (10-20); Calcium 8.9 mg/dl (8.5-10.1); Creatinine Clr Calc Pharmacy 31.8 ml/min; Est GFR (African American) 50.1; Est GFR (Non-African American) 43.2; Potassium 3.9 mmol/L (3.5-5.1)
[2018-03-02] MEDS: INSULIN ASPART 100 UNITS/ML 3 ML PEN SC SCH ×4 (08:32→21:08)
[2018-03-02] MEDS: ESCITALOPRAM OXALATE 10 MG TAB PO SCH (09:41)
[2018-03-02] MEDS: CLOPIDOGREL BISULFATE 75 MG TAB PO SCH (09:41)
[2018-03-02] MEDS: GABAPENTIN 800 MG TAB PO SCH ×3 (09:42→21:08)
[2018-03-02] MEDS: OXYBUTYNIN CHLORIDE XL 5 MG TABCR PO SCH (09:43)
[2018-03-02] MEDS: METHOCARBAMOL 500 MG TABLET PO SCH ×3 (09:43→21:08)
[2018-03-02] MEDS: PANTOprazole 40 MG TAB PO SCH ×2 (09:44→21:08)
[2018-03-02] MEDS: ROSUVASTATIN CALCIUM 20 MG TAB PO SCH (09:44)
[2018-03-02] MEDS: FERROUS SULFATE 325 MG TAB PO SCH (09:44)
[2018-03-02] MEDS: METOPROLOL SUCC 25MG EXT REL TAB PO SCH (09:49)
[2018-03-02] MEDS: LISINOPRIL 2.5 MG TAB PO SCH (09:49)
--- NOTE | 2018-03-02 11:06 | Orthopedic Progress Note ---
Date of Service March 02, 2018 Assessment & Plan (1) S/p reverse total shoulder arthroplasty: POD#2 right reverse TSA -Pain management -DVT prophylaxis-SCDs -PT/OT -D/C planning-likely home with home health hopefully sunday when pain better controlled - Subjective No N/V, Dizziness, chest pain, SOB, calf pain, some pain today Physical Exam 2 Vital Signs (Past 24 Hours): Last Vital Signs Temp 37.1 C 03/02/18 07:06 Pulse 86 03/02/18 09:49 Resp 16 03/02/18 07:06 BP 107/67 03/02/18 09:49 Pulse Ox 97 03/02/18 07:06 Physical Exam: Fingers mobile, NVI. Calves soft, non tender. Dressing in place to right shoulder.
[2018-03-02] MEDS: ONDANSETRON INJ 2 MG/ML 2 ML VIAL IV PRN (14:01)
--- NOTE | 2018-03-02 18:30 | Hospitalist Progress Note ---
Date of Service March 02, 2018 Assessment & Plan (1) S/p reverse total shoulder arthroplasty: POD #2 s/p Reverse TSA by Dr. Green -pain/wound management per ortho -activity, therapy per ortho -DVT prophylaxis per ortho -Incentive spirometry - (2) Diarrhea: developed diarrhea post op no fever or chills no abdominal pain hold all stool softener stool C diff check Present on Admission?: No (3) Urinary incontinence: chronic worsening of symptom post op had similar episode post op past surgery cont ditropan check UA and C&S Present on Admission?: Yes (4) Primary osteoarthritis, right shoulder: -plan as above (5) Hypertension: -blood pressure controlled on metoprolol, lisinopril (6) Chronic kidney disease stage 3: -baseline cr 1.0 -Bun/Cr 34/1.36, encourage increased PO water intake. -follow bmp (7) Hypothyroidism: -continue levothyroxine (8) CAD (coronary artery disease): -no chest pain/sob -continue plavix, statin, BB, VIKKI (9) CVA (cerebral vascular accident): -hx of CVA in past w/o residual deficit -continue plavix, statin and risk reduction therapy (10) Acute blood loss anemia: -preop H/H 11.3/35.0 -normocytic normochromic -on iron supplement outpatient -H/H 9.1/26.5-> 9 no indication for PRBC tx hemodynamically stable -follow cbc for abl anemia (11) GERD (gastroesophageal reflux disease): -continue PPI and misoprostol due to hx of gastric ulcer -asymptomatic (12) Anxiety: -continue buspar, lexaprol -mood stable (13) DVT prophylaxis: -SCD, early ambulatin per ortho Disposition: per Ortho Follow up: PCP Dr. Flores upon discharge Thank you for this consultation. We will follow the patient with you during their hospital stay. You can reach a member of the [facility] Hospitalist Team 11/09 via pager @ . Subjective has minimum left shoulder pain having ongoing loose stool /developed urinary incontinence post op orders for scheduled stool softeners and Laxative changed to PRN pt reports of having chronic urinary incontinence on Ditropan had similar situation -worsening of symptom post op in prior surgery cont Ditropan check UA and culture Physical Exam 2 Vital Signs (Past 24 Hours): Last Vital Signs Temp 36.8 C 03/02/18 15:28 Pulse 73 03/02/18 15:28 Resp 18 03/02/18 15:28 BP 153/62 H 03/02/18 15:28 Pulse Ox 93 03/02/18 15:28 Constitutional: no acute distress Eyes: PERRL, conjunctivae normal, anicteric sclerae ENMT: external ear and nose normal, oropharynx normal Neck: trachea midline, no thyromegaly normal visual inspection Respiratory: normal respiratory effort, lungs clear to auscultation normal respiratory effort Auscultation: lungs clear to auscultation bilaterally Cardiovascular: RRR, no murmur, no edema Rate/Rhythm: regular rate and regular rhythm Vessels: no carotid bruit Musculoskeletal: Shoulder: + surgical incision (S/p rt shoulder surgery ) Skin: no rashes, warm and dry Neurologic: normal touch/pain/proprioception Psychiatric: A+Ox3, euthymic affect Orientation: alert and oriented x 3 _ (1) CAD (coronary artery disease) Coronary Disease-Associated Artery/Lesion type: [place] artery [place] vs. transplanted heart: [place] heart Associated angina: without angina Qualified Code(s): I25.10 - Atherosclerotic heart disease of [place] coronary artery without angina pectoris (2) Hypothyroidism Hypothyroidism type: unspecified Qualified Code(s): E03.9 - Hypothyroidism, unspecified (3) S/p reverse total shoulder arthroplasty Laterality: right Qualified Code(s): Z96.611 - Presence of right artificial shoulder joint (4) GERD (gastroesophageal reflux disease) Esophagitis presence: without esophagitis Qualified Code(s): K21.9 - Gastro- esophageal reflux disease without esophagitis (5) Hypertension Hypertension type: essential hypertension Qualified Code(s): I10 - Essential (primary) hypertension (6) CVA (cerebral vascular accident) CVA mechanism: unspecified Qualified Code(s): I63.9 - Cerebral infarction, unspecified (7) Diarrhea Diarrhea type: unspecified type Qualified Code(s): R19.7 - Diarrhea, unspecified (8) Urinary incontinence Urinary Incontinence type: unspecified incontinence Qualified Code(s): R32 - Unspecified urinary incontinence
[2018-03-02] MEDS: QUETIAPINE FUMARATE 25 MG TABLET PO SCH (21:08)
[2018-03-03] MEDS: ACETAMINOPHEN 500 MG TAB PO SCH ×2 (05:47→14:11)
[2018-03-03] MEDS: LEVOTHYROXINE SODIUM 100 MCG TABLET PO SCH (05:47)
[2018-03-03 05:54] LABS: Basophils # (auto) 0.01 K/uL (0-0.2); Basophils % (auto) 0.1 %; Eosinophils # (auto) 0.23 K/uL (0-0.5); Eosinophils % (auto) 3.1 %; Hematocrit (blood only) 27.6 % (37-47); Immature Granulocytes # (auto) 0.01 K/uL (0.00-0.02); Immature Granulocytes % (auto) 0.1 %; Lymphocytes # (auto) 2.15 K/uL (1.2-3.4); Lymphocytes % (auto) 28.7 %; Mean Corpuscular Hgb Conc 32.6 g/dL (32-36); Mean Corpuscular Volume 96.2 fL (80-100); Monocytes # (auto) 1.01 K/uL (0.11-0.59); Monocytes % (auto) 13.5 %; Neutrophils # (auto) 4.08 K/uL (1.4-6.5); Neutrophils % (auto) 54.5 %; Platelet Count 133 K/uL (130-400); RDW Coefficient of Variation 13.3 % (11.5-14.5); RDW Standard Deviation 46.8 fL (36.4-46.3); Red Blood Count 2.87 M/uL (4.2-5.4); White Blood Count 7.49 K/uL (4.8-10.8)
[2018-03-03 07:14] VITALS: BP 160/74; TEMP 98.6; O2SAT 95
[2018-03-03 08:17] LABS: Appearance Urine Clear (Clear); Bilirubin Urine Negative (Negative); Color Urine Yellow; Glucose Urine UA Negative (Negative); Ketones Urine Negative (Negative); Leukocyte Esterase Urine Negative (Negative); Nitrite Urine Negative (Negative); Protein Urine Negative (Negative); Urobilinogen Urine Negative (Negative); pH Urine 5.5 (4.5-7.5)
[2018-03-03] MEDS: miSOPROStol 100 MCG TAB PO SCH ×2 (08:24→12:05)
[2018-03-03] MEDS: PANTOprazole 40 MG TAB PO SCH (08:26)
[2018-03-03] MEDS: OXYBUTYNIN CHLORIDE XL 5 MG TABCR PO SCH (08:27)
[2018-03-03] MEDS: GABAPENTIN 800 MG TAB PO SCH ×3 (08:27→14:27)
[2018-03-03] MEDS: METOPROLOL SUCC 25MG EXT REL TAB PO SCH (08:27)
[2018-03-03] MEDS: ROSUVASTATIN CALCIUM 20 MG TAB PO SCH (08:27)
[2018-03-03] MEDS: CLOPIDOGREL BISULFATE 75 MG TAB PO SCH (08:28)
[2018-03-03] MEDS: ESCITALOPRAM OXALATE 10 MG TAB PO SCH (08:28)
[2018-03-03] MEDS: LISINOPRIL 2.5 MG TAB PO SCH (08:28)
[2018-03-03] MEDS: METHOCARBAMOL 500 MG TABLET PO SCH ×3 (08:28→14:27)
[2018-03-03] MEDS: FERROUS SULFATE 325 MG TAB PO SCH (08:29)
[2018-03-03] MEDS: INSULIN ASPART 100 UNITS/ML 3 ML PEN SC SCH ×2 (08:57→13:24)
--- NOTE | 2018-03-03 09:47 | Pharmacy Report ---
Pharmacy Glycemic Sign Off Nt - Date of Service March 03, 2018 - Assessment & Plan ASSESSMENT: * Pharmacy was consulted by James Norton on 02/28/18 for glycemic control and to write orders per [facility] inpatient glycemic control protocol. * Patient has been received 1 unit of insulin since the time of admission * BSGs ranging from 75 to 129 mg/dl * Do not anticipate further changes in patient status that would quickly deteriorate glycemic control (i.e. patient to be NPO for upcoming procedure, steroids tapering, starting tube feedings, etc). PLAN FOR INPATIENT GLYCEMIC CONTROL: No changes needed to current regimen. * No basal insulin * Continue NovoLog per scale ACHS/Q6hrs while NPO * Goal range = 110 - 140 mg/dl * CF = 35 mg/dl/unit * CR not needed * Pharmacy is signing off of glycemic consult and will no longer be making adjustments to inpatient regimen. Please feel free to re-consult if needed. Thank you. DISCHARGE RECOMMENDATIONS: * A1c 5.7 % on 01/25/18 is borderline for pre-diabetes * Patient not on anti-diabetic medications as an outpatient. Lifestyle and diet modifications should be discussed.
--- NOTE | 2018-03-03 10:24 | Orthopedic Progress Note ---
Date of Service March 03, 2018 Assessment & Plan (1) S/p reverse total shoulder arthroplasty: POD#3 right reverse TSA -Pain management -DVT prophylaxis-SCDs -PT/OT -D/C planning today to home - Subjective No N/V, Dizziness, chest pain, SOB, calf pain, appropriate pain today. Feels tired Physical Exam 2 Vital Signs (Past 24 Hours): Last Vital Signs Temp 37.0 C 03/03/18 07:12 Pulse 78 03/03/18 07:12 Resp 16 03/03/18 07:12 BP 160/74 H 03/03/18 07:12 Pulse Ox 95 03/03/18 07:12 Physical Exam: FIngers mobile, NVI. Calves soft, non tender. Dressing in place. Hematoma inside right upper arm distally _ (1) S/p reverse total shoulder arthroplasty Laterality: right Qualified Code(s): Z96.611 - Presence of right artificial shoulder joint
[2018-03-03 11:30] VITALS: PULSE 60
[2018-03-03] MEDS: OXYCODONE HCL IR 5 MG TAB (IMMEDIATE RELEASE) PO PRN (14:28)
--- NOTE | 2018-03-03 17:14 | Discharge Summary ---
Date of Service March 03, 2018 Admission HPI Per Admitting Provider Patient is an 79 year old female with complaints of chronic right shoulder pain. She has failed conservative measures including anti-inflammatory medications and cortisone injections. Treatment options were discussed and she would like to proceed with right reverse total shoulder arthroplasty. She has had previous left reverse TSA in June of this year. Patient denies headaches, sweats, fevers, chills, double vision, blurred vision, cough, sore throat, dysphagia, wheezing, n/v/d/c, numbness, tingling, fatigue, urinary symptoms, mood disorders. ROS positive for right shoulder pain and stiffness. She also had an episode of chest tightness and sob in December, no issues since. Previously was scheduled for January but cancelled due to not discontinuing her Plavix. She does have appointment with her md senior research scientist this week for an updated clearance-this was obtained and patient cleared for surgery. Admission Exam Per Admitting Provider Constitutional: well developed and well nourished; no acute distress Eyes: PERRL, conjunctivae normal, anicteric sclerae ENMT: external ear and nose normal, oropharynx normal Neck: trachea midline, no thyromegaly Respiratory: normal respiratory effort, lungs clear to auscultation Cardiovascular: RRR, no murmur, no edema Vessels: no carotid bruit Musculoskeletal: Right shoulder-Pain and crepitus with ROM. Abduction 0-60, FF 0-70, ER-0-10. Strength 3/5 supraspinatus and infraspinatus. Skin: no rashes, warm and dry Neurologic: normal touch/pain/proprioception Psychiatric: A+Ox3, euthymic affect Principal Diagnosis Right Shoulder Osteoarthritis -Urinary incontinence, diarrhea, HTN, Anxiety, CKD, GERD, CAD Discharge Exam Constitutional well developed and well nourished; no acute distress Eyes PERRL, conjunctivae normal, anicteric sclerae ENMT external ear and nose normal, oropharynx normal Neck trachea midline, no thyromegaly Respiratory normal respiratory effort, lungs clear to auscultation Cardiovascular RRR, no murmur, no edema Vessels: no carotid bruit Skin no rashes, warm and dry Neurologic normal touch/pain/proprioception Psychiatric A+Ox3, euthymic affect Discharge Data Allergies Allergy/AdvReac Type Severity Reaction Status Date / Time ergotamine AdvReac Intermediate vomiting Verified 02/28/18 09:20 nitroglycerin AdvReac Unknown "PROJECTILE Verified 02/28/18 09:20 VOMITTING" Consultations 02/28/18 16:02 Consult Physician Routine 02/28/18 16:06 Consult Case Management - Discharge Planning Routine 03/01/18 17:55 Consult Case Management - Discharge Planning Routine Procedures Performed Operation Date: 02/28/18 11:00 Actual Procedures p Right Reversed Total Shoulder Arthroplasty--Uncemented(Right) - David Green MD Ordered Studies 02/28/18 05:00 US - OR guided needle placemen Routine 02/28/18 11:37 US - OR guided needle placemen Routine 02/01/18 05:00 US - OR guided needle placemen Routine Hospital Course (1) S/p reverse total shoulder arthroplasty: Patient presented for same day admission following right reverse total shoulder arthroplasty on 02/28/18. She tolerated procedure well. Post-operatively , her activity was progressed and well tolerated. Dr. Jesus Manuel Arreguin of [facility] medical service was consulted for medical management during admission. On POD#1 patient did have complaint of some diarrhea, as well as nausea. She also had complaint of increasing urinary incontinence on POD#2 into 3. Urinalysis was negative. Please refer to daily progress notes and PT notes for complete details. Her symptoms did improve. After exam on 03/03/18, patient was felt to be stable for discharge home with home health services. She did decline consideration of placement for halfway or rehab facility. Patient will f /u in the office in about 2 weeks for further evaluation including x-rays and incision check, sooner if having any issues or concerns. Lab Results 01/25/18 01/25/18 01/25/18 Range/Units 11:45 11:45 11:45 WBC 5.53 (4.8-10.8) K/uL RBC 3.68 L (4.2-5.4) M/uL Hgb 11.3 L (12.0-16.0) g/dL Hct 35.0 L (37-47) % MCV 95.1 (80-100) fL MCH 30.7 (25-34) pg MCHC 32.3 (32-36) g/dL RDW Std Deviation 49.0 H (36.4-46.3) fL RDW Coeff of Howie 14.1 (11.5-14.5) % Plt Count 162 (130-400) K/uL MPV 10.6 H (7.4-10.4) fL Immature Gran % (Auto) 0.4 % Neut % (Auto) 46.9 % Lymph % (Auto) 35.4 % Sequ[place]ah % (Auto) 10.3 % Eos % (Auto) 6.5 % Baso % (Auto) 0.5 % Immature Gran # (Auto) 0.02 (0.00-0.02) K/uL Neut # (Auto) 2.59 (1.4-6.5) K/uL Lymph # (Auto) 1.96 (1.2-3.4) K/uL Sequoyah # (Auto) 0.57 (0.11-0.59) K/uL Eos # (Auto) 0.36 (0-0.5) K/uL Baso # (Auto) 0.03 (0-0.2) K/uL PT 11.3 (9.0-12.0) Seconds INR 1.1 (0.9-1.1) APTT 24.7 (21.0-31.0) Seconds PTT Ratio 1.0 Sodium 138 (136-145) mmol/L Potassium 4.3 (3.5-5.1) mmol/L Chloride 106 (98-107) mmol/L Carbon Dioxide 27 (21-32) mmol/L Anion Gap 5.0 (3-11) BUN 27 H (7-18) mg/dl Creatinine 1.39 H (0.6-1.2) mg/dl Est Cr Clr Drug Dosing 28.4 ml/min Est GFR ( Amer) 41.1 Est GFR (Non-Af Amer) 35.5 BUN/Creatinine Ratio 19.7 (10-20) Glucose 74 (70-99) mg/dl POC Glucose (70-99) Estimat Average Glucose mg/dl Hemoglobin A1c (4.5-5.6) % Calcium 9.6 (8.5-10.1) mg/dl Albumin 3.6 (3.4-5.0) gm/dl Urine Color Urine Appearance (Clear) Urine pH (4.5-7.5) Ur Specific [place] (1.000-1.030) Urine Protein (Negative) Urine Glucose (UA) (Negative) Urine Ketones (Negative) Urine Blood (Negative) Urine Nitrite (Negative) Urine Bilirubin (Negative) Urine Urobilinogen (Negative) Ur Leukocyte Esterase (Negative) Blood Type Antibody Screen 01/25/18 01/25/18 01/25/18 Range/Units 11:45 11:45 Unknown WBC (4.8-10.8) K/uL RBC (4.2-5.4) M/uL Hgb (12.0-16.0) g/dL Hct (37-47) % MCV (80-100) fL MCH (25-34) pg MCHC (32-36) g/dL RDW Std Deviation (36.4-46.3) fL RDW Coeff of Howie (11.5-14.5) % Plt Count (130-400) K/uL MPV (7.4-10.4) fL Immature Gran % (Auto) % Neut % (Auto) % Lymph % (Auto) % Sequoyah % (Auto) % Eos % (Auto) % Baso % (Auto) % Immature Gran # (Auto) (0.00-0.02) K/uL Neut # (Auto) (1.4-6.5) K/uL Lymph # (Auto) (1.2-3.4) K/uL Sequoyah # (Auto) (0.11-0.59) K/uL Eos # (Auto) (0-0.5) K/uL Baso # (Auto) (0-0.2) K/uL PT (9.0-12.0) Seconds INR (0.9-1.1) APTT (21.0-31.0) Seconds PTT Ratio Sodium (136-145) mmol/L Potassium (3.5-5.1) mmol/L Chloride (98-107) mmol/L Carbon Dioxide (21-32) mmol/L Anion Gap (3-11) BUN (7-18) mg/dl Creatinine (0.6-1.2) mg/dl Est Cr Clr Drug Dosing ml/min Est GFR ( Amer) Est GFR (Non-Af Amer) BUN/Creatinine Ratio (10-20) Glucose (70-99) mg/dl POC Glucose (70-99) Estimat Average Glucose 117 mg/dl Hemoglobin A1c 5.7 H (4.5-5.6) % Calcium (8.5-10.1) mg/dl Albumin (3.4-5.0) gm/dl Urine Color Yellow Urine Appearance Clear (Clear) Urine pH 5.0 (4.5-7.5) Ur Specific [place] 1.017 (1.000-1.030) Urine Protein Negative (Negative) Urine Glucose (UA) Negative (Negative) Urine Ketones Negative (Negative) Urine Blood Negative (Negative) Urine Nitrite Negative (Negative) Urine Bilirubin Negative (Negative) Urine Urobilinogen Negative (Negative) Ur Leukocyte Esterase Negative (Negative) Blood Type AB Positive Antibody Screen NEGATIVE 02/28/18 02/28/18 03/01/18 Range/Units 18:50 20:33 06:04 WBC 7.75 (4.8-10.8) K/uL RBC 2.82 L (4.2-5.4) M/uL Hgb 9.1 L (12.0-16.0) g/dL Hct 26.9 L (37-47) % MCV 95.4 (80-100) fL MCH 32.3 (25-34) pg MCHC 33.8 (32-36) g/dL RDW Std Deviation 46.0 (36.4-46.3) fL RDW Coeff of Howie 13.2 (11.5-14.5) % Plt Count 127 L (130-400) K/uL MPV 9.9 (7.4-10.4) fL Immature Gran % (Auto) 0.1 % Neut % (Auto) 80.4 % Lymph % (Auto) 11.9 % Sequ[place] % (Auto) 7.5 % Eos % (Auto) 0.0 % Baso % (Auto) 0.1 % Immature Gran # (Auto) 0.01 (0.00-0.02) K/uL Neut # (Auto) 6.23 (1.4-6.5) K/uL Lymph # (Auto) 0.92 L (1.2-3.4) K/uL Sequoyah # (Auto) 0.58 (0.11-0.59) K/uL Eos # (Auto) 0.00 (0-0.5) K/uL Baso # (Auto) 0.01 (0-0.2) K/uL PT (9.0-12.0) Seconds INR (0.9-1.1) APTT (21.0-31.0) Seconds PTT Ratio Sodium (136-145) mmol/L Potassium (3.5-5.1) mmol/L Chloride (98-107) mmol/L Carbon Dioxide (21-32) mmol/L Anion Gap (3-11) BUN (7-18) mg/dl Creatinine (0.6-1.2) mg/dl Est Cr Clr Drug Dosing ml/min Est GFR ( Amer) Est GFR (Non-Af Amer) BUN/Creatinine Ratio (10-20) Glucose (70-99) mg/dl POC Glucose 146 H 153 H (70-99) Estimat Average Glucose mg/dl Hemoglobin A1c (4.5-5.6) % Calcium (8.5-10.1) mg/dl Albumin (3.4-5.0) gm/dl Urine Color Urine Appearance (Clear) Urine pH (4.5-7.5) Ur Specific [place] (1.000-1.030) Urine Protein (Negative) Urine Glucose (UA) (Negative) Urine Ketones (Negative) Urine Blood (Negative) Urine Nitrite (Negative) Urine Bilirubin (Negative) Urine Urobilinogen (Negative) Ur Leukocyte Esterase (Negative) Blood Type Antibody Screen 03/01/18 03/01/18 03/01/18 Range/Units 06:04 08:11 12:02 WBC (4.8-10.8) K/uL RBC (4.2-5.4) M/uL Hgb (12.0-16.0) g/dL Hct (37-47) % MCV (80-100) fL MCH (25-34) pg MCHC (32-36) g/dL RDW Std Deviation (36.4-46.3) fL RDW Coeff of Howie (11.5-14.5) % Plt Count (130-400) K/uL MPV (7.4-10.4) fL Immature Gran % (Auto) % Neut % (Auto) % Lymph % (Auto) % Sequoyah % (Auto) % Eos % (Auto) % Baso % (Auto) % Immature Gran # (Auto) (0.00-0.02) K/uL Neut # (Auto) (1.4-6.5) K/uL Lymph # (Auto) (1.2-3.4) K/uL Sequ[place]ah # (Auto) (0.11-0.59) K/uL Eos # (Auto) (0-0.5) K/uL Baso # (Auto) (0-0.2) K/uL PT (9.0-12.0) Seconds INR (0.9-1.1) APTT (21.0-31.0) Seconds PTT Ratio Sodium 137 (136-145) mmol/L Potassium 4.7 (3.5-5.1) mmol/L Chloride 111 H (98-107) mmol/L Carbon Dioxide 23 (21-32) mmol/L Anion Gap 3.0 (3-11) BUN 34 H (7-18) mg/dl Creatinine 1.36 H (0.6-1.2) mg/dl Est Cr Clr Drug Dosing 27.6 ml/min Est GFR ( Amer) 42.2 Est GFR (Non-Af Amer) 36.4 BUN/Creatinine Ratio 24.8 H (10-20) Glucose 132 H (70-99) mg/dl POC Glucose 133 H 96 (70-99) Estimat Average Glucose mg/dl Hemoglobin A1c (4.5-5.6) % Calcium 8.5 (8.5-10.1) mg/dl Albumin (3.4-5.0) gm/dl Urine Color Urine Appearance (Clear) Urine pH (4.5-7.5) Ur Specific [place] (1.000-1.030) Urine Protein (Negative) Urine Glucose (UA) (Negative) Urine Ketones (Negative) Urine Blood (Negative) Urine Nitrite (Negative) Urine Bilirubin (Negative) Urine Urobilinogen (Negative) Ur Leukocyte Esterase (Negative) Blood Type Antibody Screen 03/01/18 03/01/18 03/02/18 Range/Units 17:08 20:35 06:35 WBC 6.81 (4.8-10.8) K/uL RBC 2.93 L (4.2-5.4) M/uL Hgb 9.0 L (12.0-16.0) g/dL Hct 27.8 L (37-47) % MCV 94.9 (80-100) fL MCH 30.7 (25-34) pg MCHC 32.4 (32-36) g/dL RDW Std Deviation 46.2 (36.4-46.3) fL RDW Coeff of Howie 13.4 (11.5-14.5) % Plt Count 143 (130-400) K/uL MPV 9.9 (7.4-10.4) fL Immature Gran % (Auto) 0.1 % Neut % (Auto) 63.8 % Lymph % (Auto) 24.4 % Sequoyah % (Auto) 8.7 % Eos % (Auto) 2.9 % Baso % (Auto) 0.1 % Immature Gran # (Auto) 0.01 (0.00-0.02) K/uL Neut # (Auto) 4.34 (1.4-6.5) K/uL Lymph # (Auto) 1.66 (1.2-3.4) K/uL Sequoyah # (Auto) 0.59 (0.11-0.59) K/uL Eos # (Auto) 0.20 (0-0.5) K/uL Baso # (Auto) 0.01 (0-0.2) K/uL PT (9.0-12.0) Seconds INR (0.9-1.1) APTT (21.0-31.0) Seconds PTT Ratio Sodium (136-145) mmol/L Potassium (3.5-5.1) mmol/L Chloride (98-107) mmol/L Carbon Dioxide (21-32) mmol/L Anion Gap (3-11) BUN (7-18) mg/dl Creatinine (0.6-1.2) mg/dl Est Cr Clr Drug Dosing ml/min Est GFR ( Amer) Est GFR (Non-Af Amer) BUN/Creatinine Ratio (10-20) Glucose (70-99) mg/dl POC Glucose 117 H 132 H (70-99) Estimat Average Glucose mg/dl Hemoglobin A1c (4.5-5.6) % Calcium (8.5-10.1) mg/dl Albumin (3.4-5.0) gm/dl Urine Color Urine Appearance (Clear) Urine pH (4.5-7.5) Ur Specific [place] (1.000-1.030) Urine Protein (Negative) Urine Glucose (UA) (Negative) Urine Ketones (Negative) Urine Blood (Negative) Urine Nitrite (Negative) Urine Bilirubin (Negative) Urine Urobilinogen (Negative) Ur Leukocyte Esterase (Negative) Blood Type Antibody Screen 03/02/18 03/02/18 03/02/18 Range/Units 06:35 08:04 12:04 WBC (4.8-10.8) K/uL RBC (4.2-5.4) M/uL Hgb (12.0-16.0) g/dL Hct (37-47) % MCV (80-100) fL MCH (25-34) pg MCHC (32-36) g/dL RDW Std Deviation (36.4-46.3) fL RDW Coeff of Howie (11.5-14.5) % Plt Count (130-400) K/uL MPV (7.4-10.4) fL Immature Gran % (Auto) % Neut % (Auto) % Lymph % (Auto) % [place] % (Auto) % Eos % (Auto) % Baso % (Auto) % Immature Gran # (Auto) (0.00-0.02) K/uL Neut # (Auto) (1.4-6.5) K/uL Lymph # (Auto) (1.2-3.4) K/uL Sequoyah # (Auto) (0.11-0.59) K/uL Eos # (Auto) (0-0.5) K/uL Baso # (Auto) (0-0.2) K/uL PT (9.0-12.0) Seconds INR (0.9-1.1) APTT (21.0-31.0) Seconds PTT Ratio Sodium 137 (136-145) mmol/L Potassium 3.9 D (3.5-5.1) mmol/L Chloride 108 H (98-107) mmol/L Carbon Dioxide 23 (21-32) mmol/L Anion Gap 6.0 (3-11) BUN 35 H (7-18) mg/dl Creatinine 1.18 (0.6-1.2) mg/dl Est Cr Clr Drug Dosing 31.8 ml/min Est GFR ( Amer) 50.1 Est GFR (Non-Af Amer) 43.2 BUN/Creatinine Ratio 29.3 H (10-20) Glucose 88 (70-99) mg/dl POC Glucose 75 98 (70-99) Estimat Average Glucose mg/dl Hemoglobin A1c (4.5-5.6) % Calcium 8.9 (8.5-10.1) mg/dl Albumin (3.4-5.0) gm/dl Urine Color Urine Appearance (Clear) Urine pH (4.5-7.5) Ur Specific [place] (1.000-1.030) Urine Protein (Negative) Urine Glucose (UA) (Negative) Urine Ketones (Negative) Urine Blood (Negative) Urine Nitrite (Negative) Urine Bilirubin (Negative) Urine Urobilinogen (Negative) Ur Leukocyte Esterase (Negative) Blood Type Antibody Screen 03/02/18 03/02/18 03/03/18 Range/Units 17:04 20:38 05:28 WBC 7.49 (4.8-10.8) K/uL RBC 2.87 L (4.2-5.4) M/uL Hgb 9.0 L (12.0-16.0) g/dL Hct 27.6 L (37-47) % MCV 96.2 (80-100) fL MCH 31.4 (25-34) pg MCHC 32.6 (32-36) g/dL RDW Std Deviation 46.8 H (36.4-46.3) fL RDW Coeff of Howie 13.3 (11.5-14.5) % Plt Count 133 (130-400) K/uL MPV 10.0 (7.4-10.4) fL Immature Gran % (Auto) 0.1 % Neut % (Auto) 54.5 % Lymph % (Auto) 28.7 % [place] % (Auto) 13.5 % Eos % (Auto) 3.1 % Baso % (Auto) 0.1 % Immature Gran # (Auto) 0.01 (0.00-0.02) K/uL Neut # (Auto) 4.08 (1.4-6.5) K/uL Lymph # (Auto) 2.15 (1.2-3.4) K/uL Sequ[place]ah # (Auto) 1.01 H (0.11-0.59) K/uL Eos # (Auto) 0.23 (0-0.5) K/uL Baso # (Auto) 0.01 (0-0.2) K/uL PT (9.0-12.0) Seconds INR (0.9-1.1) APTT (21.0-31.0) Seconds PTT Ratio Sodium (136-145) mmol/L Potassium (3.5-5.1) mmol/L Chloride (98-107) mmol/L Carbon Dioxide (21-32) mmol/L Anion Gap (3-11) BUN (7-18) mg/dl Creatinine (0.6-1.2) mg/dl Est Cr Clr Drug Dosing ml/min Est GFR ( Amer) Est GFR (Non-Af Amer) BUN/Creatinine Ratio (10-20) Glucose (70-99) mg/dl POC Glucose 129 H 115 H (70-99) Estimat Average Glucose mg/dl Hemoglobin A1c (4.5-5.6) % Calcium (8.5-10.1) mg/dl Albumin (3.4-5.0) gm/dl Urine Color Urine Appearance (Clear) Urine pH (4.5-7.5) Ur Specific [place] (1.000-1.030) Urine Protein (Negative) Urine Glucose (UA) (Negative) Urine Ketones (Negative) Urine Blood (Negative) Urine Nitrite (Negative) Urine Bilirubin (Negative) Urine Urobilinogen (Negative) Ur Leukocyte Esterase (Negative) Blood Type Antibody Screen 03/03/18 03/03/18 03/03/18 Range/Units 08:00 08:03 12:07 WBC (4.8-10.8) K/uL RBC (4.2-5.4) M/uL Hgb (12.0-16.0) g/dL Hct (37-47) % MCV (80-100) fL MCH (25-34) pg MCHC (32-36) g/dL RDW Std Deviation (36.4-46.3) fL RDW Coeff of Howie (11.5-14.5) % Plt Count (130-400) K/uL MPV (7.4-10.4) fL Immature Gran % (Auto) % Neut % (Auto) % Lymph % (Auto) % [place] % (Auto) % Eos % (Auto) % Baso % (Auto) % Immature Gran # (Auto) (0.00-0.02) K/uL Neut # (Auto) (1.4-6.5) K/uL Lymph # (Auto) (1.2-3.4) K/uL [place] # (Auto) (0.11-0.59) K/uL Eos # (Auto) (0-0.5) K/uL Baso # (Auto) (0-0.2) K/uL PT (9.0-12.0) Seconds INR (0.9-1.1) APTT (21.0-31.0) Seconds PTT Ratio Sodium (136-145) mmol/L Potassium (3.5-5.1) mmol/L Chloride (98-107) mmol/L Carbon Dioxide (21-32) mmol/L Anion Gap (3-11) BUN (7-18) mg/dl Creatinine (0.6-1.2) mg/dl Est Cr Clr Drug Dosing ml/min Est GFR ( Amer) Est GFR (Non-Af Amer) BUN/Creatinine Ratio (10-20) Glucose (70-99) mg/dl POC Glucose 103 H 98 (70-99) Estimat Average Glucose mg/dl Hemoglobin A1c (4.5-5.6) % Calcium (8.5-10.1) mg/dl Albumin (3.4-5.0) gm/dl Urine Color Yellow Urine Appearance Clear (Clear) Urine pH 5.5 (4.5-7.5) Ur Specific [place] 1.010 (1.000-1.030) Urine Protein Negative (Negative) Urine Glucose (UA) Negative (Negative) Urine Ketones Negative (Negative) Urine Blood Negative (Negative) Urine Nitrite Negative (Negative) Urine Bilirubin Negative (Negative) Urine Urobilinogen Negative (Negative) Ur Leukocyte Esterase Negative (Negative) Blood Type Antibody Screen Total Time Total Time Spent Total Time Spent (In Minutes): 20 Discharge Plan Discharge Items Patient Disposition: Home - Home Health Services Reason For Visit: Right Shoulder Osteoarthritis Discharge Diagnosis: Right Shoulder Osteoarthritis Discharge Goals: Decrease discomfort and Improve function Activity: Per 'Additional Instructions' section Weightbearing: Right non-weightbearing Weightbearing Comment: on right upper extremity Non-emergency contact: Surgeon Call non-emergency contact if: your pain is not controlled, your temperature is above 101.5, your wound has increased redness and your wound has increased drainage Follow-up/Referrals: Con Coughlin MD [Primary Care Provider] - 03/08/18 1:05 pm Diet: Regular Addtl Provider Instructions: ACTIVITY RECOMMENDATIONS: SELF CARE INSTRUCTIONS AFTER TOTAL SHOULDER ARTHROPLASTY REVERSE A. You may do daily exercises as taught in physical therapy while in hospital. No lifting with the operative arm. B. You are to wear your sling/immobilizer at all times EXCEPT when performing your daily exercises and for hygiene purposes. C. You may perform dry, daily dressing changes. Please keep your incision covered. You may shower 48 hours after surgery. Do not apply soap or any ointment/ lotions directly over incision. Do not soak incision in bath tub/swimming pool. D. You may use ice as needed to operative shoulder. E. Change your dressing daily. You may shower in 3 days from the day of surgery. No direct shower pressure on the wound. Do not soak it. NO tub baths. Keep the wound covered with a light dressing to protect it. SPECIAL CARE INSTRUCTIONS: VERY IMPORTANT TO READ AND REVIEW A. There are a few signs you need to watch for after you are home. Call [facility] at [phone] if you experience any of the followin. Increased severe shoulder pain. Some pain is expected especially when you exercise. 2. Increased swelling in you shoulder or arm; pain or swelling in either upper extremity. 3. Any fluid drainage from the incision. 4. Shortness of breath or chest pain. B. Please call [facility] at [phone] if you have any questions or concerns about your operation or recovery. C. Call your physician if: 1. Temperature is greater than 101 degrees (F). 2. Pain is not relieved by prescribed pain medications. 3. Increase drainage or redness from incision. 4. Unanswered questions or concerns. FOLLOW UP VISIT: Please call [facility] at [phone] to schedule a follow up appointment with Dr. Green or his PA in 12-14 days from your surgery date. Prescriptions: New acetaminophen [Pain Reliever] 500 mg Tablet 1,000 mg PO Q8H 30 Days Qty: 180 RF: 0 oxycodone 5 mg Tablet 5 - 10 mg PO Q4H PRN (Reason: pain) Qty: 30 RF: 0 Continue methocarbamol 500 mg Tablet 500 mg PO TID RF: 0 oxybutynin chloride 10 mg Tablet Extended Release 24hr 10 mg PO QAM RF: 0 diphenoxylate-atropine [Lomotil] 2.5-0.025 mg Tablet 1 tab PO QID PRN (Reason: Diarrhea) RF: 0 clopidogrel [Plavix] 75 mg Tablet 75 mg PO QAM RF: 0 levothyroxine [Levoxyl] 100 mcg Tablet 100 mcg PO QAM RF: 0 gabapentin 800 mg Tablet 800 mg PO TID RF: 0 pantoprazole [Protonix] 40 mg Tablet,Delayed Release (Dr/Ec) 40 mg PO BID RF: 0 ferrous sulfate 325 mg (65 mg iron) Tablet 325 mg PO DAILY RF: 0 buspirone 10 mg Tablet 10 mg PO BID RF: 0 misoprostol 100 mcg Tablet 100 mcg PO QID RF: 0 metoprolol succinate [Toprol XL] 25 mg Tablet Extended Release 24 Hr 25 mg PO QAM RF: 0 lisinopril 2.5 mg Tablet 2.5 mg PO QAM RF: 0 escitalopram oxalate [Lexapro] 10 mg Tablet 15 mg PO QAM RF: 0 rosuvastatin [Crestor] 40 mg Tablet 40 mg PO QAM RF: 0 quetiapine [Seroquel] 50 mg Tablet 50 mg PO HS RF: 0 Discontinued hydrocodone-acetaminophen [Oneco] 5-325 mg Tablet 1 tab PO Q6H PRN (Reason: severe pain) RF: 0 Visit Report Forms: [facility] Portal Stand-Alone Forms: [facility], Opioid Pain Management Discharge Orders: Discharge Order (Routine); Ordered 03/03/18 Ordered By: Sophie Marie Admission Data Admit Date/Time: 02/28/18 16:02 Attending Provider: Davdi Green Admit Provider: David Green Primary Care Provider: Con Coughlin Other Providers: Noah Adams ; Jesus Manuel Arreguin ; Gracie Paredes Service: Surgical Services Other Interventions: Discharge Summary Assessment (RN) Last Done: 03/03/18 11:28 DC Date/Time DO NOT enter until pt leaves facility: 03/03/18 15:20
== END 2018-03-03 15:20 | disposition home health service (06) | DRG 483 ==
LOC: ASU 08:44 → 3E 16:02

== ENCOUNTER 2020-10-22 14:30 | Inpatient (IN) ==
[2020-10-22] MEDS ORDERED: LIDOCAINE 5% 1 PATCH TD STA (15:33)
--- NOTE | 2020-10-22 16:20 | Emergency Department Note ---
Impression & Plan Acute hip pain, Ambulatory dysfunction ED Provider Note NAME: Marquez LEACH AGE: 81 SEX: F : 11/14/1938 ARRIVES VIA: Ambulance INFORMANT: Patient, ED PROVIDER(S): Anthony Taylor MD Chief Complaint: Hip pain HPI: Patient does present with concern for hip pain that is been ongoing approximately 2 to 3 days seem to be worse today. The patient does localize to the right hip and it is nonradiating. Patient denies any recent falls or trauma. The patient does have prior history of bilateral shoulder arthropl asties and bilateral hip arthroplasties. The patient has not followed routinely with any local orthopedist in some time. The patient did take a [place] today and the patient states that her pain seems to be improved compared to prior. Patient denies any fevers chills chest pains or shortness of breath. The patient is vaccinated for Covid. Patient denies any back pain. The patient denies any numbness tingling or focal weakness. ROS: See HPI for pertinent positives and negatives. A total of 10 systems were reviewed and otherwise negative. Past medical history: See below Surgical history: See below Social history: See below Physical Exam: GENERAL: Well appearing, well nourished, NAD, wearing a mask, non-toxic. EYE EXAM: Normal conjunctiva. PERRL, no anisocoria and EOM's grossly intact w/o pain. NECK: Supple, no nuchal rigidity, no adenopathy, non-tender. No signs of meningismus. LUNGS: Clear to auscultation. Normal chest wall mechanics. HEART: NSR, no MRG. ABDOMEN: Abdomen soft, non-tender, normo-active bowel sounds, no masses, no rebound or guarding. BACK: No CVA TTP. SKIN: No rashes and no bruising. UPPER EXTREMITIES: Upper extremities are grossly normal. LOWER EXTREMITIES: Mild pain to the right hip without any obvious leg length discrepancy, compartments are soft, neurovascularly intact distally, good range of motion at the hip knee and ankle. NEURO EXAM: A&O x3, cranial nerves II-XII grossly intact, normal speech, moves all 4 extremities on command w/o issue. Differential diagnoses: Fracture, subluxation, dislocation, contusion, ligamentous injury, neurovascular, compartment syndrome, rhabdomyolysis, as well as other pathologies. Course: Patient was seen and evaluated the bedside. Full history physical exam was performed. Imaging Studies: See Below Cardiac monitoring: An order was placed for continuous cardiac monitoring. The monitor shows a rate of 66 with sinus rhythm. MDM: Patient did present with concern for right-sided hip pain. The patient is not had any recent falls or trauma. The patient does not have any obvious swelling and only has some mild tenderness to palpation on exam. The patient does have good range of motion at the bedside while lying flat. Patient seems to have more discomfort when she tries to ambulate. Patient was attempted to be ambulatory after pain medication but without much improvement. The patient's x- rays are unremarkable. The patient was given additional medication but was still unable to do well going to and from the bathroom. Given that the patient does live by herself I did speak with the case work aide about getting the patient to rehab which is unavailable at this time. I did speak with the on-call hospitalist and the patient was admitted to the medicine service by Dr. Fallon. Past Med/Surg History Medical History Acid reflux OCCASIONAL Arthritis CAD (coronary artery disease) Chronic back pain Depression History of blood transfusion 2012 2/2 GASTRIC ULCER History of gastric ulcer 2012 Hypothyroidism Osteoarthritis Spinal stenosis Transient ischemic attack (TIA) ~2013>REASON FOR [place] Surgical History H/O bilateral salpingo-oophorectomy with hyter History of abdominoplasty PANNICULECTOMY History of arthroplasty of left hip History of arthroplasty of left shoulder History of arthroplasty of right hip History of cardiac cath NO STENTS History of colonoscopy History of coronary artery bypass graft 1998 (1 VESSEL) History of esophagogastroduodenoscopy (EGD) History of hysterectomy with oophorectomy History of tonsillectomy and adenoidectomy S/P epidural steroid injection S/p reverse total shoulder arthroplasty RT/LEFT Family History Father , age 74 Allergic reaction Mother , 80s CHF (congestive heart failure) Other No family history of adverse response to anesthesia Social History Smoking Status: Never smoker Second Hand Exposure: No; Hx Alcohol Use: No Hx Substance Use: No Preferred Language: Ukrainian Communication Ability: Effective Visual Impairment: No Limitations Loss Mitigation Specialist Required: No Beliefs That Will Affect Care: None Current Living Situation: Alone Current Living Situation Comment: [facility] Feels Safe at Home: Yes Safety Concerns: Feels Safe At This Time Assistive Devices: None Allergies Allergies Allergy/AdvReac Type Severity Reaction Status Date / Time ergotamine AdvReac Intermediate vomiting Verified 10/22/20 16:05 nitroglycerin AdvReac Unknown "PROJECTILE Verified 10/22/20 16:05 VOMITTING" Home Meds Home Medications Medication Instructions Recorded Confirmed buspirone 10 mg tablet 10 mg PO BID 01/23/18 10/22/20 clopidogrel 75 mg tablet (Plavix) 75 mg PO QAM 01/23/18 10/22/20 escitalopram oxalate 10 mg tablet 10 mg PO QAM 01/23/18 10/22/20 (Lexapro) ferrous sulfate 325 mg (65 mg 325 mg PO QAM 01/23/18 10/22/20 iron) tablet gabapentin 800 mg tablet 800 mg PO TID 01/23/18 10/22/20 levothyroxine 100 mcg tablet 100 mcg PO QAM 01/23/18 10/22/20 (Levoxyl) lisinopril 2.5 mg tablet 2.5 mg PO QAM 01/23/18 10/22/20 pantoprazole 40 mg tablet,delayed 40 mg PO BID 01/23/18 10/22/20 release (Protonix) rosuvastatin 40 mg tablet (Crestor) 40 mg PO QAM 01/23/18 10/22/20 multivitamin 1 tab PO QAM 11/11/18 10/22/20 misoprostol 100 mcg tablet 100 mcg PO QID 11/17/19 10/22/20 diphenoxylate-atropine 2.5 1 tab PO QID PRN 10/22/20 10/22/20 mg-0.025 mg tablet escitalopram oxalate 5 mg tablet 5 mg PO QAM 10/22/20 10/22/20 hydrocodone 7.5 mg-acetaminophen 1 tab PO Q6 PRN 10/22/20 10/22/20 325 mg tablet metoprolol succinate 25 mg 25 mg PO DAILY 10/22/20 10/22/20 tablet,extended release 24 hr ondansetron HCl 4 mg tablet 4 mg PO Q6H PRN 10/22/20 10/22/20 (Zofran) oxybutynin chloride 15 mg 15 mg PO QAM 10/22/20 10/22/20 tablet,extended release 24 hr Previous Rx's Medication Instructions Recorded methocarbamol 500 mg tablet 500 mg PO TID #270 tab 05/24/20 zolpidem 5 mg tablet 5 mg PO HS PRN #30 tab 10/12/20 Results & Data (ED) Vital Signs Vital Signs - 24 hr 10/22/20 14:36 10/22/20 14:52 10/22/20 16:22 Temperature 37.2 C Temperature Source Oral Pulse Rate 60 Pulse Rate [Finger] 64 66 Pulse Rhythm Regular Pulse Rhythm [Finger] Regular Regular Pulse Strength Normal Pulse Strength [Finger] Normal Normal Respiratory Rate 18 18 18 Respiratory Effort / Characteristics Spontaneous Spontaneous Spontaneous Respiratory Depth Normal Normal Normal Respiratory Pattern Regular Regular Regular Blood Pressure 157/73 H Blood Pressure [Right Arm] 157/73 H 173/90 H Blood Pressure Mean 101 Blood Pressure Mean [Right Arm] 101 117 Blood Pressure Position Lying Blood Pressure Position [Right Arm] Lying Semi-fowlers Pulse Oximetry 97 95 98 Oxygen Delivery Method Room Air Room Air Room Air Oxygen Flow Rate 0 0 0 Sepsis Recent Fever Within 48 Hours No Sepsis New/Unexplained Change in Mental Status No Sepsis Action Taken by Nursing No Action Required 10/22/20 18:00 10/22/20 18:11 Temperature Temperature Source Pulse Rate 77 Pulse Rate [Finger] 72 Pulse Rhythm Regular Pulse Rhythm [Finger] Regular Pulse Strength Pulse Strength [Finger] Normal Respiratory Rate 18 16 Respiratory Effort / Characteristics Spontaneous Respiratory Depth Normal Respiratory Pattern Regular Blood Pressure Blood Pressure [Right Arm] 186/73 H Blood Pressure Mean Blood Pressure Mean [Right Arm] 110 Blood Pressure Position Blood Pressure Position [Right Arm] Semi-fowlers Pulse Oximetry 96 96 Oxygen Delivery Method Room Air Room Air Oxygen Flow Rate 0 0 Sepsis Recent Fever Within 48 Hours Sepsis New/Unexplained Change in Mental Status Sepsis Action Taken by Assisted Medications Current Medication List: was personally reviewed by me Laboratory Data Attestation: I reviewed the patient's lab results. Result diagrams: 10/23/20 06:00 10/23/20 06:00 Administered Medications Acetaminophen (Acetaminophen 325 Mg Tab) 650 mg PO Q8 YAN Stop: 11/21/20 19:50 Last Admin: 10/23/20 05:55 Dose: 650 mg Documented by: [id number] Admin: 10/22/20 21:59 Dose: Not Given Documented by: [id number] Hydrocodone Bitart/Acetaminophen (Hydrocodone/Acetaminophen 7.5/325mg Tab) 1 tab PO Q6H PRN PRN Reason: Pain Stop: 11/05/20 19:57 Last Admin: 10/23/20 05:54 Dose: 1 tab Documented by: [id number] Buspirone HCl (Buspirone 5 Mg Tab) 10 mg PO BID YAN Stop: 11/21/20 20:59 Last Admin: 10/22/20 21:45 Dose: 10 mg Documented by: [id number] Gabapentin (Gabapentin 800 Mg Tab) 800 mg PO TID [facility] Stop: 11/21/20 20:59 Last Admin: 10/22/20 21:46 Dose: 800 mg Documented by: [id number] Levothyroxine Sodium (Levothyroxine Sodium 100 Mcg Tablet) 100 mcg PO DAILYBB [facility] Stop: 11/22/20 06:29 Last Admin: 10/23/20 05:55 Dose: 100 mcg Documented by: [id number] Methocarbamol (Methocarbamol 500 Mg Tablet) 500 mg PO TID [facility] Stop: 11/21/20 20:59 Last Admin: 10/22/20 21:45 Dose: 500 mg Documented by: [id number] Miscellaneous (Remove Lidoderm Patch) 1 ea N/A DAILY@2100 [facility] Stop: 11/21/20 20:59 Last Admin: 10/22/20 22:20 Dose: 1 ea Documented by: [id number] Misoprostol (Misoprostol 50 Mcg Tab) 100 mcg PO QID YAN Stop: 11/21/20 20:59 Last Admin: 10/22/20 21:45 Dose: 100 mcg Documented by: [id number] Pantoprazole Sodium (Pantoprazole 40 Mg Tab) 40 mg PO BID [facility] Stop: 11/21/20 21:59 Last Admin: 10/22/20 22:20 Dose: 40 mg Documented by: [id number] Zolpidem Tartrate (Zolpidem Tartrate 5 Mg Tab) 5 mg PO HS PRN PRN Reason: sleep Stop: 11/21/20 19:57 Last Admin: 10/22/20 23:28 Dose: 5 mg Documented by: [id number] Discontinued Medications Acetaminophen (Acetaminophen 325 Mg Tab) 650 mg PO Q8H YAN Stop: 11/21/20 19:50 Last Admin: 10/22/20 21:00 Dose: Not Given Documented by: [id number] Cyclobenzaprine HCl (Cyclobenzaprine Hcl 5 Mg Tab) 5 mg PO NOW STA Stop: 10/22/20 17:17 Last Admin: 10/22/20 17:39 Dose: 5 mg Documented by: [id number] Hydromorphone HCl (Hydromorphone Inj 0.5 Mg/0.5 Ml Syr) 0.5 mg IV NOW STA Stop: 10/22/20 20:01 Last Admin: 10/22/20 20:31 Dose: 0.5 mg Documented by: [id number] Sodium Chloride (Nss) 500 mls @ 999 mls/hr IV .Q31M YAN Stop: 10/22/20 18:45 Last Infusion: 10/22/20 21:33 Dose: 0 mls/hr Documented by: [id number] Admin: 10/22/20 18:51 Dose: 999 mls/hr Documented by: [id number] Lidocaine (Lidocaine 5% 1 Patch) 1 patch TD NOW STA Stop: 10/22/20 15:34 Last Admin: 10/22/20 15:59 Dose: 1 patch Documented by: [id number] Methylprednisolone (Methylprednisolone 40 Mg/Ml Vial) 60 mg IM NOW STA Stop: 10/22/20 17:17 Last Admin: 10/22/20 17:39 Dose: 60 mg Documented by: [id number] Morphine Sulfate (Morphine Sulfate 2 Mg/Ml Carp) 2 mg IV Q2H PRN PRN Reason: Pain Stop: 11/05/20 19:57 Last Admin: 10/22/20 22:27 Dose: 2 mg Documented by: [id number] Ondansetron HCl (Ondansetron Inj 2 Mg/Ml 2 Ml Vial) 4 mg IV NOW STA Stop: 10/22/20 18:12 Last Admin: 10/22/20 18:53 Dose: 4 mg Documented by: [id number] Imaging Data Radiologist's Impression: Hip/Pelvis X-Ray 10/22/20 15:32 XR hip RT 2V w pelvis CLINICAL HISTORY: tightness, pain, prior ANDRÉS COMPARISON: Pelvis radiograph August 13, 2012. CT of the abdomen and pelvis October 10, 2017. FINDINGS: Sacroiliac joints and symphysis pubis are intact. Alignment of the total bilateral hip arthroplasties is anatomic. There is no periprosthetic fracture. 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 IMPRESSION: Status post bilateral total hip arthroplasty. Hardware intact. No periprosthetic fracture. ACT 112: Negative or not required by law. Electronically signed by: Anthony Borden M.D. 10/22/2020 4:34 PM Discharge Plan Visit Data Chief Complaint: Hip Pain Stated Complaint: disclocation ED Provider: Anthony Taylor Discharge Problem: Acute hip pain, Ambulatory dysfunction Patient Disposition: Admitted As Inpatient Discharge Instructions Interventions: ED Discharge Assessment Last Done: 10/22/20 21:00 Discharge Problem: Acute hip pain Qualifiers: Laterality: right Qualified Code(s): M25.551 - Pain in right hip
--- NOTE | 2020-10-22 16:35 | XRay Report ---
XR hip RT 2V w pelvis CLINICAL HISTORY: tightness, pain, prior ANDRÉS COMPARISON: Pelvis radiograph August 13, 2012. CT of the abdomen and pelvis October 10, 2017. FINDINGS: Sacroiliac joints and symphysis pubis are intact. Alignment of the total bilateral hip art hroplasties is anatomic. There is no periprosthetic fracture. Ossification along the proximal right f emur is chronic. IMPRESSION: Status post bilateral total hip arthroplasty. Hardware intact. No periprosthetic fracture . ACT 112: Negative or not required by law. Electronically signed by: Anthony Borden M.D. 10/22/2020 4:34 PM
[2020-10-22] MEDS ORDERED: CYCLOBENZAPRINE HCL 5 MG TAB PO STA (17:16)
[2020-10-22] MEDS ORDERED: ONDANSETRON INJ 2 MG/ML 2 ML VIAL IV STA (18:11)
[2020-10-22] MEDS ORDERED: SODIUM CHLORIDE 0.9% 500 ML IV SCH (18:15)
--- NOTE | 2020-10-22 18:25 | History & Physical Report ---
Date of Service October 22, 2020 Assessment & Plan (1) Acute hip pain: Plan: Note: Epic reviewed - patients in [facility] is charted as [birth year] whereas her in [facility] records is [birth year]. Pt notes her true is correct in [facility] here and previously had told people she was two years younger. - Admit to obs - control pain, - PT/OT evaluate the patient here and CM to assist with dc planning for rehab, lives at home alone - Xray reviewed - no periprosthetic fracture or other acute injury - CT R hip pending - Lidocaine patch, tylenol around the clock, MS IV 2 mg Q4H prn severe pain, gabapentin 800 mg TID, will order prednisone taper to assist with inflammation if she is negative for occult blood on guiac test -- hx of gastric ulcer and black tarry stools. (2) Ambulatory dysfunction: Plan: - PT/OT as above - pain control (3) CAD (coronary artery disease): Plan: -Follows with Dr. Adams as an outpatient, history of CAD and CABG x1,Remote SANDOVAL graft CABG, moderate valvular disease, AI/MR/TR without evidence of CHF -Cont plavix for now -Continue statin -Noted history of leg edema 2 weeks ago which was unexplained, resolved spontaneously, and did not require diuretic. Her weight has never exceeded 140 pounds therefore had not taken any of the previously prescribed triamterene HCTZ. (4) Dyslipidemia: Plan: -Continue statin therapy as above (5) Mild aortic stenosis: Plan: -History of such, noted on exam (6) Gastric ulcer: Plan: -Noted black tarry stools last week, reports that she has been having this occur every other week, -Consider GI consult, outpatient scope likely to be required soon -Continue Protonix twice daily, iron supplementation -Noted as she is on Plavix for cardiac history as above -Hemoccult all stools, hemoglobin is stable at 11.4 (7) Hypothyroidism: Plan: -Continue home levothyroxine 100 mcg daily DVT PPx: - teds, no chemical prophylaxis with possible GI bleed, already on Plavix CODE: DNR/DNI Dispo: From home, likely to remain in the hospital x 1-2 days. Covid test pending. History of Present Illness Chief Complaint: Hip pain Primary Care Provider: Con Coughlin MD This is an 81 yo F with PMHx of CAD, history of TIA, hypothyroidism, osteoarthritis, bilateral total hip surgeries, chronic back pain, depression, GERD who presents with acute onset Right hip pain which started on Sunday earlier this week. She lives at home independently. It has progressively worsened to the point where she is unable to take more than one step when getting out of bed. She denies recent injury, fall or other trauma to the right hip, no bruising or redness. There is no radiation of pain, no numbness or tingling, no bladder or bowel incontinence or saddle anesthesia. She reports having received injections in her lower back previously by Dr. Green with orthopedics, but has not seen him for several months. She takes gabapentin routinely for neuropathy and hydrocodone-acetaminophen tablets on an as needed basis, and required one earlier today. She reports she has been able to take her medications at home as they were with her in her bedroom. Today she could barely get out of bed at all, and had to call a friend who came to help her get out of her house and into an ambulance. Recently, not eating or drinking well since she has not been able to fix herself something in the past 3 days due to being in bed from the pain. She also reports history of a bleeding gastric ulcer, for which she takes Protonix and an iron supplement. Previously she has been scoped by Dr. Perez. Approximately 1 week ago she had dark tarry stools and feels that it has been becoming more frequent, nearly every other week she has several days of bowel movements like this. Denies any nausea, vomiting or constipation issues. She has thought about calling them recently because of the increased frequency in this. Denies any lightheadedness, dizziness chest pain or shortness of breath. As an outpatient, she follows with cardiology, Dr. Adams and was seen approximately 2 weeks ago for swelling in bilateral lower extremities. Since then, the issue seemed to have resolved on its own. She was given a prescription for triamtereneHCTZ tea however did not end up using any of it. Of note, the patient's medical record was reviewed in [facility]- however date of is listed as 1940 which was somewhat confusing initially and prompted further investigation. The patient admits to lying about her age for many years, and did not think it mattered as she is always said she is 2 years younger than what she really is. She follows with cardiology through [facility], and reports that since she did not see them as often, so did not adjust her age within that medical system. Allergies Allergy/AdvReac Type Severity Reaction Status Date / Time ergotamine AdvReac Intermediate vomiting Verified 10/22/20 16:05 nitroglycerin AdvReac Unknown "PROJECTILE Verified 10/22/20 16:05 VOMITTING" Home Medications Medication Instructions Recorded Confirmed Type buspirone 10 mg tablet 10 mg PO BID 01/23/18 10/22/20 History clopidogrel 75 mg tablet (Plavix) 75 mg PO QAM 01/23/18 10/22/20 History escitalopram oxalate 10 mg tablet 10 mg PO QAM 01/23/18 10/22/20 History (Lexapro) ferrous sulfate 325 mg (65 mg 325 mg PO QAM 01/23/18 10/22/20 History iron) tablet gabapentin 800 mg tablet 800 mg PO TID 01/23/18 10/22/20 History levothyroxine 100 mcg tablet 100 mcg PO QAM 01/23/18 10/22/20 History (Levoxyl) lisinopril 2.5 mg tablet 2.5 mg PO QAM 01/23/18 10/22/20 History pantoprazole 40 mg tablet,delayed 40 mg PO BID 01/23/18 10/22/20 History release (Protonix) rosuvastatin 40 mg tablet (Crestor) 40 mg PO QAM 01/23/18 10/22/20 History multivitamin 1 tab PO QAM 11/11/18 10/22/20 History misoprostol 100 mcg tablet 100 mcg PO QID 11/17/19 10/22/20 History methocarbamol 500 mg tablet 500 mg PO TID #270 tab 05/24/20 10/22/20 Rx zolpidem 5 mg tablet 5 mg PO HS PRN #30 tab 10/12/20 10/22/20 Rx diphenoxylate-atropine 2.5 1 tab PO QID PRN 10/22/20 10/22/20 History mg-0.025 mg tablet escitalopram oxalate 5 mg tablet 5 mg PO QAM 10/22/20 10/22/20 History hydrocodone 7.5 mg-acetaminophen 1 tab PO Q6 PRN 10/22/20 10/22/20 History 325 mg tablet metoprolol succinate 25 mg 25 mg PO DAILY 10/22/20 10/22/20 History tablet,extended release 24 hr ondansetron HCl 4 mg tablet 4 mg PO Q6H PRN 10/22/20 10/22/20 History (Zofran) oxybutynin chloride 15 mg 15 mg PO QAM 10/22/20 10/22/20 History tablet,extended release 24 hr Past Med/Surg History Medical History Acid reflux OCCASIONAL Arthritis CAD (coronary artery disease) Chronic back pain Depression History of blood transfusion 03/23 GASTRIC ULCER History of gastric ulcer 2012 Hypothyroidism Osteoarthritis Spinal stenosis Transient ischemic attack (TIA) ~2013>REASON FOR PLAVIX Surgical History H/O bilateral salpingo-oophorectomy with hyter History of abdominoplasty PANNICULECTOMY History of arthroplasty of left hip History of arthroplasty of left shoulder History of arthroplasty of right hip History of cardiac cath NO STENTS History of colonoscopy History of coronary artery bypass graft 1998 (1 VESSEL) History of esophagogastroduodenoscopy (EGD) History of hysterectomy with oophorectomy History of tonsillectomy and adenoidectomy S/P epidural steroid injection S/p reverse total shoulder arthroplasty RT/LEFT Family History Father , age 74 Allergic reaction Mother , 80s CHF (congestive heart failure) Other No family history of adverse response to anesthesia Social History Smoking Status: Never smoker Second Hand Exposure: No; Hx Alcohol Use: No Hx Substance Use: No Preferred Language: Cambodian Communication Ability: Effective Visual Impairment: No Limitations 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 Feels Safe at Home: Yes Safety Concerns: Feels Safe At This Time Assistive Devices: None Review of Systems Review of Systems: Constitutional: No fever, sweats or chills Eyes: No diplopia, no worsening or blurred vision ENT: normal hearing, no trouble swallowing, + dry mouth Respiratory: No cough, sputum, dyspnea at rest or on exertion Cardiovascular: No chest pain, tightness or palpitations Abdomen: No pain, nausea, vomiting, diarrhea or constipation Musculoskeletal: + Right hip pain as per HPI history of right arthroplasty in 2001, history of left arthroplasty prior to that, otherwise no joint pain, calf pain, +2 weeks ago had lower extremity swelling but is now resolved Neurologic: No weakness, numbness/tingling, or balance problems Psychiatric: No anxiety or depression Skin: No rash or itch Physical Exam Physical Exam: General: awake, alert, no apparent distress Head: Normocephalic, atraumatic ENT: PERRL, EOMI, no pharyngeal exudate, mucous membranes moist Chest: Clear to auscultation, on room air, no adventitious breath sounds Cardiac: Regular rate and rhythm, +systolic murmur, no JVD, normal peripheral pulses, good capillary refill Abdominal: NABS x 4 quadrants, soft, nondistended, nontender to palpation, no rebound or guarding Extremities: Right hip pain tender to palpation, normal inspection, no peripheral edema or erythema, calfs nontender to palpation Psych: Normal mood and affect Neuro: AAO x 3, strength intact bilaterally in upper extremities and rated 5/5, strength not assessed in right lower extremity due to pain in the right hip, strength 5 out of 5 in left lower extremity. No gross motor deficits, speech is clear, no peripheral sensory deficits Results & Data Results & Data ([facility]) Vital Signs (Past 12 Hours) Vital Signs Temp Pulse Pulse Resp BP BP Pulse Ox 10/22/20 16:22 66 18 173/90 H 98 10/22/20 14:52 37.2 C 64 18 157/73 H 95 10/22/20 14:36 60 18 157/73 H 97 Diagnostic Findings Hip/Pelvis X-Ray 10/22/20 15:32 XR hip RT 2V w pelvis CLINICAL HISTORY: tightness, pain, prior ANDRÉS COMPARISON: Pelvis radiograph August 13, 2012. CT of the abdomen and pelvis October 10, 2017. FINDINGS: Sacroiliac joints and symphysis pubis are intact. Alignment of the total bilateral hip arthroplasties is anatomic. There is no periprosthetic fracture. 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 IMPRESSION: Status post bilateral total hip arthroplasty. Hardware intact. No periprosthetic fracture. ACT 112: Negative or not required by law. Electronically signed by: Anthony Borden M.D. 10/22/2020 4:34 PM Code Status & VTE Plan Code Status DNR/DNI Supervising Physician Co-Signing Physician Notes Care coordinated with Valeria Bolden PA-C. Agree with above note. Patient seen and examined. Please refer to her notes for full details. Vital signs reviewed. Physical exam: General exam: Alert and oriented. Not in acute distress. CVS: S1 and S2 heard, regular rate and rhythm, no murmurs. RS: Clear to auscultation, no wheezing or crackles. ABD: Soft, bowel sounds present, nontender, no distention. NCQA SPECIALIST: Nonfocal. EXT: No edema, no erythema. Labs: Reviewed. Assessment and plan: 81f presents severe right hip pain for few days. Having difficulty walking. No injury. No chest pain or sob or nausea. No fevers. Right hip pain Pain control pt/ot monitor hx of CAd stable home meds Other diagnosis and plan of care as per Valeria Bolden PA-C. Butch felder MD. (1) Acute hip pain Laterality: right Qualified Code(s): M25.551 - Pain in right hip (2) CAD (coronary artery disease) Associated angina: without angina Coronary Disease-Associated Artery/Lesion type: [place] artery [place] vs. transplanted heart: aug[place]ine heart Qualified Code(s): I25.10 - Atherosclerotic heart disease of [place] coronary artery without angina pectoris (3) Hypothyroidism Hypothyroidism type: unspecified Qualified Code(s): E03.9 - Hypothyroidism, unspecified
[2020-10-22 19:06] LABS: Basophils # (auto) 0.02 K/uL (0-0.2); Basophils % (auto) 0.4 %; Eosinophils # (auto) 0.08 K/uL (0-0.5); Eosinophils % (auto) 1.5 %; Hematocrit (blood only) 34.9 % (37-47); Hemoglobin 11.4 g/dL (12.0-16.0); Immature Granulocytes # (auto) 0.02 K/uL (0.00-0.02); Immature Granulocytes % (auto) 0.4 %; Lymphocytes # (auto) 1.55 K/uL (1.2-3.4); Lymphocytes % (auto) 29.3 %; Mean Corpuscular Hemoglobin 31.6 pg (25-34); Mean Corpuscular Hgb Conc 32.7 g/dL (32-36); Mean Corpuscular Volume 96.7 fL (80-100); Mean Platelet Volume 9.6 fL (7.4-10.4); Monocytes % (auto) 11.3 %; Neutrophils # (auto) 3.02 K/uL (1.4-6.5); Neutrophils % (auto) 57.1 %; Platelet Count 145 K/uL (130-400); RDW Coefficient of Variation 13.7 % (11.5-14.5); RDW Standard Deviation 48.2 fL (36.4-46.3); Red Blood Count 3.61 M/uL (4.2-5.4); White Blood Count 5.29 K/uL (4.8-10.8)
[2020-10-22 19:30] LABS: Albumin Level 3.4 gm/dl (3.4-5.0); Creatinine Clr Calc Pharmacy 40.3 ml/min; Est GFR (African American) 65.9 ml/min; Est GFR (Non-African American) 56.8 ml/min
[2020-10-22 19:40] LABS: Bilirubin,Total 0.7 mg/dl (0.2-1); Globulin 3.4 gm/dl (2.5-4.0); Thyroid Stimulating Hormone 0.607 uIu/ml (0.300-4.500); Total Protein 6.8 gm/dl (6.4-8.2)
[2020-10-22] MEDS ORDERED: ACETAMINOPHEN 325 MG TAB PO SCH (19:51)
[2020-10-22] MEDS ORDERED: HYDROCODONE/ACETAMINOPHEN 7.5/325MG TAB PO PRN (19:58)
[2020-10-22] MEDS ORDERED: MoRPHine SULFATE 2 MG/ML CARP IV PRN ×2 (19:58→22:41)
[2020-10-22] MEDS ORDERED: HYDROmorphone INJ 0.5 MG/0.5 ML SYR IV STA (20:00)
--- NOTE | 2020-10-22 21:06 | CT Scan Report ---
CT hip RT wo con CLINICAL HISTORY: pain w/ ambulation; prior ANDRÉS, neg XR COMPARISON STUDY: CT of the abdomen and pelvis October 10, 2017. Pelvis and right hip radiographs per formed earlier today. TECHNIQUE: Axial images of the right hip were obtained without IV contrast. Sagittal and coronal mitra nstructions were viewed. Automated exposure control was utilized for the study. A dose lowering tech nique was utilized adhering to the principles of ALARA. FINDINGS: Alignment of the total right hip arthroplasty is anatomic. There is no periprosthetic fract ure or lucency. Acetabular screw is noted. Heterotopic ossification is unchanged since CT of September 202017. The adjacent soft tissues are unremarkable by CT although evaluation is suboptimal given str eak artifact from the hardware. Visualized portions of the pelvis are unremarkable. Bladder is mildly distended. No suspicious lesions are identified within the visualized skeletal structures. IMPRESSION: 1. Stable postoperative findings following total right hip arthroplasty. No acute periprosthetic frac ture or lucency. 2. 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 ACT 112: Negative or not required by law. Electronically signed by: Anthony Borden M.D. 10/22/2020 9:05 PM
[2020-10-22] MEDS ORDERED: TRIAMTERENE/HCTZ 37.5/25MG TAB PO PRN (21:31)
[2020-10-22] MEDS ORDERED: ACETAMINOPHEN 325 MG TAB PO PRN (21:31)
[2020-10-22] MEDS ORDERED: DIPHENOXYLATE/ATROPINE 2.5/0.025MG TAB PO PRN (21:31)
[2020-10-22] MEDS: miSOPROStoL 50 MCG TAB PO SCH (21:45)
[2020-10-22] MEDS: busPIRone 5 MG TAB PO SCH (21:45)
[2020-10-22] MEDS: METHOCARBAMOL 500 MG TABLET PO SCH (21:45)
[2020-10-22] MEDS: GABAPENTIN 800 MG TAB PO SCH (21:46)
[2020-10-22] MEDS: ACETAMINOPHEN 325 MG TAB PO SCH (21:59)
[2020-10-22] MEDS: PANTOprazole 40 MG TAB PO SCH (22:20)
[2020-10-22] MEDS ORDERED: oxyCODONE HCL IR 5 MG TAB (IMMEDIATE RELEASE) PO PRN ×2 (22:40→22:41)
[2020-10-22] MEDS: ZOLPIDEM TARTRATE 5 MG TAB PO PRN (23:28)
[2020-10-23] MEDS: HYDROCODONE/ACETAMINOPHEN 7.5/325MG TAB PO PRN (05:54)
[2020-10-23] MEDS: LEVOTHYROXINE SODIUM 100 MCG TABLET PO SCH (05:55)
[2020-10-23] MEDS: ACETAMINOPHEN 325 MG TAB PO SCH ×3 (05:55→21:18)
[2020-10-23 06:32] LABS: Hematocrit (blood only) 34.3 % (37-47); Hemoglobin 11.1 g/dL (12.0-16.0); Mean Corpuscular Hemoglobin 31.3 pg (25-34); Mean Corpuscular Hgb Conc 32.4 g/dL (32-36); Mean Corpuscular Volume 96.6 fL (80-100); Mean Platelet Volume 9.6 fL (7.4-10.4); Platelet Count 142 K/uL (130-400); RDW Coefficient of Variation 13.6 % (11.5-14.5); RDW Standard Deviation 48.2 fL (36.4-46.3); Red Blood Count 3.55 M/uL (4.2-5.4); White Blood Count 5.68 K/uL (4.8-10.8)
[2020-10-23 07:06] LABS: BUN Creatinine Ratio 18.6 (10-20); Calcium 9.7 mg/dl (8.5-10.1); Est GFR (African American) 68.5 ml/min; Est GFR (Non-African American) 59.1 ml/min
[2020-10-23 07:09] LABS: Albumin Globulin Ratio 0.9 (0.9-2); Bilirubin,Total 0.5 mg/dl (0.2-1); Globulin 3.3 gm/dl (2.5-4.0); Total Protein 6.3 gm/dl (6.4-8.2)
[2020-10-23] MEDS ORDERED: ESCITALOPRAM OXALATE 10 MG TAB PO SCH ×2 (09:00)
[2020-10-23] MEDS: FERROUS SULFATE 325 MG TAB PO SCH (09:57)
[2020-10-23] MEDS: CLOPIDOGREL BISULFATE 75 MG TAB PO SCH (09:57)
[2020-10-23] MEDS: ESCITALOPRAM OXALATE 10 MG TAB PO SCH (09:59)
[2020-10-23] MEDS: OXYBUTYNIN CHLORIDE XL 5 MG TABCR PO SCH (10:00)
[2020-10-23] MEDS: busPIRone 5 MG TAB PO SCH ×2 (10:00→20:40)
[2020-10-23] MEDS: PANTOprazole 40 MG TAB PO SCH ×2 (10:00→20:41)
[2020-10-23] MEDS: METOPROLOL SUCC 25MG EXT REL TAB PO SCH (10:01)
[2020-10-23] MEDS: MULTIVITAMIN TAB PO SCH (10:01)
[2020-10-23] MEDS: lisinopril 2.5 MG TAB PO SCH (10:01)
[2020-10-23] MEDS: ROSUVASTATIN CALCIUM 20 MG TAB PO SCH (10:02)
[2020-10-23] MEDS: METHOCARBAMOL 500 MG TABLET PO SCH ×3 (10:03→20:42)
[2020-10-23] MEDS: GABAPENTIN 800 MG TAB PO SCH ×3 (10:03→20:40)
[2020-10-23] MEDS: miSOPROStoL 50 MCG TAB PO SCH ×4 (10:03→20:40)
[2020-10-23] MEDS ORDERED: MoRPHine SULFATE 2 MG/ML CARP IV STA (10:18)
[2020-10-23] MEDS: LIDOCAINE 5% 1 PATCH TD SCH (12:10)
--- NOTE | 2020-10-23 12:45 | Hospitalist Progress Note ---
Date of Service October 23, 2020 Assessment & Plan (1) Acute hip pain: Plan: Note: Epic reviewed - pt's in [facility] is charted as 38 whereas her in [facility] records is 11[birth year]14[birth year]36. Pt notes her true is correct in [facility] here and previously had told people she was 2 years younger. - Admit to obs - control pain, - PT/OT evaluate the patient here and CM to assist with dc planning for rehab, lives at home alone - Xray reviewed - no periprosthetic fracture or other acute injury - CT R hip 1. Stable postoperative findings following total right hip arthroplasty. No acute periprosthetic fracture or lucency. 2. 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 - Lidocaine patch, tylenol around the clock, MS IV 2 mg Q4H prn severe pain, gabapentin 800 mg TID, will order prednisone taper to assist with inflammation if she is negative for occult blood on guiac test -- hx of gastric ulcer and black tarry stools. 10/23 -patient worked with PT today, and had excruciating pain, blood pressure also elevated d/t pain in 200s, received stat IV morphine. She has history of total hip arthroplasty, had multiple surgeries with [facility], will consult with orthopedics further (2) Ambulatory dysfunction: Plan: - PT/OT as above - pain control (3) CAD (coronary artery disease): Plan: -Follows with Dr. Adams as an outpatient, history of CAD and CABG x1,Remote SANDOVAL graft CABG, moderate valvular disease, AI/MR/TR without evidence of CHF -Cont plavix for now -Continue statin -Noted history of leg edema 2 weeks ago which was unexplained, resolved spontaneously, and did not require diuretic. Her weight has never exceeded 140 pounds therefore had not taken any of the previously prescribed triamterene HCTZ. (4) Dyslipidemia: Plan: -Continue statin therapy as above (5) Mild aortic stenosis: Plan: -History of such, noted on exam (6) Gastric ulcer: Plan: -Noted black tarry stools last week, reports that she has been having this occur every other week, -Consider GI consult, outpatient scope likely to be required soon -Continue Protonix twice daily, iron supplementation -Noted as she is on Plavix for cardiac history as above -Hemoccult all stools, hemoglobin is stable at 11.4 (7) Hypothyroidism: Plan: -Continue home levothyroxine 100 mcg daily DVT PPx: - teds, no chemical prophylaxis with possible GI bleed, already on Plavix CODE: DNR/DNI Dispo: From home, likely to remain in the hospital x 1-2 days. Admission and Anticipated Discharge Date Admission Date: October 22, 2020 Subjective Patient seen in follow-up of right hip pain Per patient and nursing staff, when worked with physical therapy, she had excruciating pain, blood pressure was also elevated into 200s Currently she is lying in bed, in no acute distress, says she has still quite a bit of pain in her right hip She denies any trauma or any unusual movement prior to pain happening on Sunday CT image of R hip obtained, does not show any acute pathology Pt has history of total hip arthroplasty Denies any fevers, chills, chest pain, shortness of breath History of multiple surgeries w/ [facility], orthopedics consulted for further evaluation Review of Systems 2 Review of Systems: All systems reviewed & are unremarkable except as noted in Subjective Physical Exam Physical Exam: General: awake, alert, in NAD, mildly uncomfortable due to pain Head: Normocephalic, atraumatic ENT: PERRL, EOMI, no pharyngeal exudate, mucous membranes moist Chest: Clear to auscultation, on room air, no adventitious breath sounds Cardiac: Regular rate and rhythm, +systolic murmur, no JVD, normal peripheral pulses, good capillary refill Abdominal: NABS x 4 quadrants, soft, nondistended, nontender to palpation, no rebound or guarding Extremities: Right hip pain tender to palpation, normal inspection, no peripheral edema or erythema, calves nontender to palpation Psych: Normal mood and affect Neuro: AAO x 3, strength intact bilaterally in upper extremities and rated 5/5, strength not assessed in right lower extremity due to pain in the right hip, strength 5 out of 5 in left lower extremity. No gross motor deficits, speech is clear, no peripheral sensory deficits Results & Data Results & Data ([facility]) Vital Signs (Past 12 Hours) Vital Signs Temp Pulse Resp BP Pulse Ox 10/23/20 12:12 174/75 H 10/23/20 09:54 70 116/64 10/23/20 06:55 36.7 C 63 16 134/68 95 Laboratory Results 10/23/20 10/23/20 10/22/20 Range/Units 06:00 06:00 19:25 WBC 5.68 (4.8-10.8) K/uL RBC 3.55 L (4.2-5.4) M/uL Hgb 11.1 L (12.0-16.0) g/dL Hct 34.3 L (37-47) % MCV 96.6 (80-100) fL MCH 31.3 (25-34) pg MCHC 32.4 (32-36) g/dL RDW Std Deviation 48.2 H (36.4-46.3) fL RDW Coeff of Howie 13.6 (11.5-14.5) % Plt Count 142 (130-400) K/uL MPV 9.6 (7.4-10.4) fL Immature Gran % (Auto) % Neut % (Auto) % Lymph % (Auto) % Titus % (Auto) % Eos % (Auto) % Baso % (Auto) % Neut # (Auto) (1.4-6.5) K/uL Lymph # (Auto) (1.2-3.4) K/uL Titus # (Auto) (0.11-0.59) K/uL Eos # (Auto) (0-0.5) K/uL Baso # (Auto) (0-0.2) K/uL Immature Gran # (Auto) (0.00-0.02) K/uL Sodium 141 (136-145) mmol/L Potassium 4.0 (3.5-5.1) mmol/L Chloride 111 H (98-107) mmol/L Carbon Dioxide 25 (21-32) mmol/L Anion Gap 5.0 (3-11) BUN 17 (7-18) mg/dl Creatinine 0.90 (0.6-1.2) mg/dl Est Cr Clr Drug Dosing 41.0 ml/min Est GFR ( Amer) 68.5 ml/min Est GFR (Non-Af Amer) 59.1 ml/min BUN/Creatinine Ratio 18.6 (10-20) Glucose 143 H (70-99) mg/dl Calcium 9.7 (8.5-10.1) mg/dl Total Bilirubin 0.5 (0.2-1) mg/dl AST 20 (15-37) U/L ALT 25 (12-78) U/L Alkaline Phosphatase 41 L (45-117) U/L Total Protein 6.3 L (6.4-8.2) gm/dl Albumin 3.0 L (3.4-5.0) gm/dl Globulin 3.3 (2.5-4.0) gm/dl Albumin/Globulin Ratio 0.9 (0.9-2) TSH (0.300-4.500) uIu/ml COVID-19 Eval Order SARS-CoV-2 (PCR) NEGATIVE (Negative) 10/22/20 10/22/20 10/22/20 Range/Units 19:25 18:56 18:56 WBC 5.29 (4.8-10.8) K/uL RBC 3.61 L (4.2-5.4) M/uL Hgb 11.4 L (12.0-16.0) g/dL Hct 34.9 L (37-47) % MCV 96.7 (80-100) fL MCH 31.6 (25-34) pg MCHC 32.7 (32-36) g/dL RDW Std Deviation 48.2 H (36.4-46.3) fL RDW Coeff of Howie 13.7 (11.5-14.5) % Plt Count 145 (130-400) K/uL MPV 9.6 (7.4-10.4) fL Immature Gran % (Auto) 0.4 % Neut % (Auto) 57.1 % Lymph % (Auto) 29.3 % Titus % (Auto) 11.3 % Eos % (Auto) 1.5 % Baso % (Auto) 0.4 % Neut # (Auto) 3.02 (1.4-6.5) K/uL Lymph # (Auto) 1.55 (1.2-3.4) K/uL Titus # (Auto) 0.60 H (0.11-0.59) K/uL Eos # (Auto) 0.08 (0-0.5) K/uL Baso # (Auto) 0.02 (0-0.2) K/uL Immature Gran # (Auto) 0.02 (0.00-0.02) K/uL Sodium 141 (136-145) mmol/L Potassium 4.0 (3.5-5.1) mmol/L Chloride 110 H (98-107) mmol/L Carbon Dioxide 25 (21-32) mmol/L Anion Gap 6.0 (3-11) BUN 16 (7-18) mg/dl Creatinine 0.93 (0.6-1.2) mg/dl Est Cr Clr Drug Dosing 40.3 ml/min Est GFR ( Amer) 65.9 ml/min Est GFR (Non-Af Amer) 56.8 ml/min BUN/Creatinine Ratio 17.0 (10-20) Glucose 108 H (70-99) mg/dl Calcium 10.0 (8.5-10.1) mg/dl Total Bilirubin 0.7 (0.2-1) mg/dl AST 23 (15-37) U/L ALT 28 (12-78) U/L Alkaline Phosphatase 44 L (45-117) U/L Total Protein 6.8 (6.4-8.2) gm/dl Albumin 3.4 (3.4-5.0) gm/dl Globulin 3.4 (2.5-4.0) gm/dl Albumin/Globulin Ratio 1.0 (0.9-2) TSH 0.607 (0.300-4.500) uIu/ml COVID-19 Eval Order Covid19 at [facility] SARS-CoV-2 (PCR) (Negative) Medications Administered Current Inpatient Medications Acetaminophen (Acetaminophen 325 Mg Tab) 650 mg PO Q4H PRN PRN Reason: Moderate Pain Stop: 11/21/20 21:30 Acetaminophen (Acetaminophen 325 Mg Tab) 650 mg PO Q8 YAN Stop: 11/21/20 19:50 Last Admin: 10/23/20 05:55 Dose: 650 mg Documented by: Hydrocodone Bitart/Acetaminophen (Hydrocodone/Acetaminophen 7.5/325mg Tab) 1 tab PO Q6H PRN PRN Reason: Pain Stop: 11/05/20 19:57 Last Admin: 10/23/20 05:54 Dose: 1 tab Documented by: Buspirone HCl (Buspirone 5 Mg Tab) 10 mg PO BID YAN Stop: 11/21/20 20:59 Last Admin: 10/23/20 10:00 Dose: 10 mg Documented by: Clopidogrel Bisulfate (Clopidogrel Bisulfate 75 Mg Tab) 75 mg PO [facility] Stop: 11/22/20 08:59 Last Admin: 10/23/20 09:57 Dose: 75 mg Documented by: Diphenoxylate HCl/Atropine (Diphenoxylate/Atropine 2.5/0.025mg Tab) 1 tab PO QID PRN PRN Reason: Diarrhea Stop: 11/21/20 21:30 Escitalopram Oxalate (Escitalopram Oxalate 10 Mg Tab) 15 mg PO [facility] Stop: 11/22/20 08:59 Last Admin: 10/23/20 09:59 Dose: 15 mg Documented by: Ferrous Sulfate (Ferrous Sulfate 325 Mg Tab) 325 mg PO [facility] Stop: 11/22/20 08:59 Last Admin: 10/23/20 09:57 Dose: 325 mg Documented by: Gabapentin (Gabapentin 800 Mg Tab) 800 mg PO TID [facility] Stop: 11/21/20 20:59 Last Admin: 10/23/20 10:03 Dose: 800 mg Documented by: Levothyroxine Sodium (Levothyroxine Sodium 100 Mcg Tablet) 100 mcg PO DAILYPSYCHIATRIC Stop: 11/22/20 06:29 Last Admin: 10/23/20 05:55 Dose: 100 mcg Documented by: Lidocaine (Lidocaine 5% 1 Patch) 1 patch TD [facility] Stop: 11/22/20 10:59 Last Admin: 10/23/20 12:10 Dose: 1 patch Documented by: Lisinopril (Lisinopril 2.5 Mg Tab) 2.5 mg PO [facility] Stop: 11/22/20 08:59 Last Admin: 10/23/20 10:01 Dose: 2.5 mg Documented by: Methocarbamol (Methocarbamol 500 Mg Tablet) 500 mg PO TID [facility] Stop: 11/21/20 20:59 Last Admin: 10/23/20 10:03 Dose: 500 mg Documented by: Metoprolol Succinate (Metoprolol Succ 25mg Ext Rel Tab) 25 mg PO DAILY [facility] Stop: 11/22/20 08:59 Last Admin: 10/23/20 10:01 Dose: 25 mg Documented by: Miscellaneous (Remove Lidoderm Patch) 1 ea N/A DAILY@2100 [facility] Stop: 11/21/20 20:59 Last Admin: 10/22/20 22:20 Dose: 1 ea Documented by: Miscellaneous (Remove Lidoderm Patch) 1 ea N/A DAILY@2100 [facility] Stop: 11/22/20 20:59 Misoprostol (Misoprostol 50 Mcg Tab) 100 mcg PO QID [facility] Stop: 11/21/20 20:59 Last Admin: 10/23/20 10:03 Dose: 100 mcg Documented by: Morphine Sulfate (Morphine Sulfate 2 Mg/Ml Carp) 2 mg IV Q4H PRN PRN Reason: Pain (7-10) Stop: 11/06/20 10:39 Multivitamins ([facility]amin Tab) [facility] Stop: 11/22/20 08:59 Last Admin: 10/23/20 10:01 Dose: 1 tab Documented by: Ondansetron HCl (Ondansetron Inj 2 Mg/Ml 2 Ml Vial) 4 mg IV Q4H PRN PRN Reason: Nausea And Vomiting Stop: 11/21/20 21:30 Oxybutynin Chloride (Oxybutynin Chloride Xl 5 Mg Tabcr) [facility] Stop: 11/22/20 08:59 Last Admin: 10/23/20 10:00 Dose: 15 mg Documented by: Pantoprazole Sodium (Pantoprazole 40 Mg Tab) 40 mg PO BID [facility] Stop: 11/21/20 21:59 Last Admin: 10/23/20 10:00 Dose: 40 mg Documented by: Rosuvastatin Calcium (Rosuvastatin Calcium 20 Mg Tab) 40 mg PO QAM [facility] Stop: 11/22/20 08:59 Last Admin: 10/23/20 10:02 Dose: 40 mg Documented by: Triamterene/Hydrochlorothiazide (Triamterene/Hctz 37.5/25mg Tab) 1 tab PO DAILY PRN PRN Reason: edema Stop: 11/21/20 21:30 Zolpidem Tartrate (Zolpidem Tartrate 5 Mg Tab) 5 mg PO HS PRN PRN Reason: sleep Stop: 11/21/20 19:57 Last Admin: 10/22/20 23:28 Dose: 5 mg Documented by: (1) Acute hip pain Laterality: right Qualified Code(s): M25.551 - Pain in right hip (2) CAD (coronary artery disease) Associated angina: without angina Coronary Disease-Associated Artery/Lesion type: [place] artery [place] vs. transplanted heart: [place] heart Qualified Code(s): I25.10 - Atherosclerotic heart disease of [place] coronary artery without angina pectoris (3) Hypothyroidism Hypothyroidism type: unspecified Qualified Code(s): E03.9 - Hypothyroidism, unspecified
[2020-10-23] MEDS: MoRPHine SULFATE 4 MG/ML 1 ML CARP\\VIAL IV STA ×2 (13:42→14:43)
[2020-10-23] MEDS: MoRPHine SULFATE 2 MG/ML CARP IV PRN ×2 (18:12→23:00)
[2020-10-23] MEDS: ZOLPIDEM TARTRATE 5 MG TAB PO PRN (23:02)
[2020-10-24 05:54] LABS: Hematocrit (blood only) 34.1 % (37-47); Mean Corpuscular Hemoglobin 31.3 pg (25-34); Mean Corpuscular Hgb Conc 32.3 g/dL (32-36); Mean Corpuscular Volume 97.2 fL (80-100); Mean Platelet Volume 9.6 fL (7.4-10.4); Platelet Count 148 K/uL (130-400); RDW Coefficient of Variation 13.5 % (11.5-14.5); RDW Standard Deviation 47.8 fL (36.4-46.3); Red Blood Count 3.51 M/uL (4.2-5.4); White Blood Count 8.87 K/uL (4.8-10.8)
[2020-10-24] MEDS ORDERED: BUPIVACAINE 0.5 % 5 MG/1 ML MPF 30ML VIAL INFIL SCH (06:00)
[2020-10-24] MEDS ORDERED: ETHYL CHLORIDE AER SPR 100 ML CAN EXT SCH (06:00)
[2020-10-24 06:22] LABS: BUN Creatinine Ratio 19.5 (10-20); Calcium 9.2 mg/dl (8.5-10.1); Creatinine Clr Calc Pharmacy 40.1 ml/min; Est GFR (African American) 66.7 ml/min; Est GFR (Non-African American) 57.6 ml/min; Magnesium 1.7 mg/dl (1.8-2.4)
[2020-10-24 06:25] LABS: Bilirubin,Total 0.4 mg/dl (0.2-1); Phosphorus 2.9 mg/dl (2.5-4.9)
[2020-10-24] MEDS: ACETAMINOPHEN 325 MG TAB PO SCH ×3 (06:31→22:32)
[2020-10-24] MEDS: LEVOTHYROXINE SODIUM 100 MCG TABLET PO SCH (06:31)
[2020-10-24] MEDS: MoRPHine SULFATE 2 MG/ML CARP IV PRN ×4 (06:40→20:37)
--- NOTE | 2020-10-24 07:36 | Hospitalist Progress Note ---
Date of Service October 24, 2020 Assessment & Plan (1) Acute hip pain: Plan: Note: Epic reviewed - [facility]'s in [facility] is chart[facility] as 38 whereas her in [facility] records is [birth year]14[birth year]. Pt notes her true is correct in [facility] here and previously had told people she was 2 years younger. - Admit to obs - control pain, - PT/OT evaluate the patient here and CM to assist with dc planning for rehab, lives at home alone - Xray reviewed - no periprosthetic fracture or other acute injury - CT R hip 1. Stable postoperative findings following total right hip arthroplasty. No acute periprosthetic fracture or lucency. 2. 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 - Lidocaine patch, tylenol around the clock, MS IV 2 mg Q4H prn severe pain, gabapentin 800 mg TID, will order prednisone taper to assist with inflammation if she is negative for occult blood on guiac test -- hx of gastric ulcer and black tarry stools. 10/23 -patient worked with PT today, and had excruciating pain, blood pressure also elevated d/t pain in 200s, received stat IV morphine. She has history of total hip arthroplasty, had multiple surgeries with [facility], will consult with orthopedics further 10/24 -continues to have severe pain at Right trochanteric bursa. Underwent steroid injection today with orthopedics. We will continue to closely monitor, PT, pain management as above (2) Ambulatory dysfunction: Plan: - PT/OT as above - pain control (3) CAD (coronary artery disease): Plan: -Follows with Dr. Adams as an outpatient, history of CAD and CABG x1,Remote SANDOVAL graft CABG, moderate valvular disease, AI/MR/TR without evidence of CHF -Cont plavix for now -Continue statin -Noted history of leg edema 2 weeks ago which was unexplained, resolved spontaneously, and did not require diuretic. Her weight has never exceeded 140 pounds therefore had not taken any of the previously prescribed triamterene HCTZ. (4) Dyslipidemia: Plan: -Continue statin therapy as above (5) Mild aortic stenosis: Plan: -History of such, noted on exam (6) Gastric ulcer: Plan: -Noted black tarry stools last week, reports that she has been having this occur every other week, -Consider GI consult, outpatient scope likely to be required soon -Continue Protonix twice daily, iron supplementation -Noted as she is on Plavix for cardiac history as above -Hemoccult all stools, hemoglobin is stable at ~11 (7) Hypothyroidism: Plan: -Continue home levothyroxine 100 mcg daily DVT PPx: - teds, no chemical prophylaxis with possible GI bleed, already on Plavix CODE: DNR/DNI Dispo: From home, likely to remain in the hospital x 1-2 days. Admission and Anticipated Discharge Date Admission Date: October 22, 2020 Subjective Patient seen in follow-up of right hip pain Currently she is lying in bed, in no acute distress, s/p steroid injection to R trochanteric bursa She denies any trauma or any unusual movement prior to pain happening on Sunday CT image of R hip obtained, does not show any acute pathology Pt has history of total hip arthroplasty Denies any fevers, chills, chest pain, shortness of breath History of multiple surgeries w/ [facility], orthopedics following Review of Systems Review of Systems: All systems reviewed & are unremarkable except as noted in Subjective Physical Exam Physical Exam: General: awake, alert, in NAD, mildly uncomfortable due to pain Head: Normocephalic, atraumatic ENT: PERRL, EOMI, no pharyngeal exudate, mucous membranes moist Chest: Clear to auscultation, on room air, no adventitious breath sounds Cardiac: Regular rate and rhythm, +systolic murmur, no JVD, normal peripheral pulses, good capillary refill Abdominal: NABS x 4 quadrants, soft, nondistended, nontender to palpation, no rebound or guarding Extremities: Tender to palpation at R trochanteric bursa, outside normal inspection, no edema or erythema, moves extremities Psych: Normal mood and affect Neuro: AAO x 3, strength intact bilaterally in upper extremities and rated 5/5, strength not assessed in right lower extremity due to pain in the right hip, strength 5 out of 5 in left lower extremity. No gross motor deficits, speech is clear, no peripheral sensory deficits Results & Data Results & Data ([facility]) Vital Signs (Past 12 Hours) Vital Signs Temp Pulse Resp BP Pulse Ox 10/24/20 07:10 37.1 C 64 16 173/73 H 94 10/23/20 23:03 36.7 C 76 16 157/78 H 97 Laboratory Results 10/24/20 10/24/20 Range/Units 05:11 05:11 WBC 8.87 (4.8-10.8) K/uL RBC 3.51 L (4.2-5.4) M/uL Hgb 11.0 L (12.0-16.0) g/dL Hct 34.1 L (37-47) % MCV 97.2 (80-100) fL MCH 31.3 (25-34) pg MCHC 32.3 (32-36) g/dL RDW Std Deviation 47.8 H (36.4-46.3) fL RDW Coeff of Howie 13.5 (11.5-14.5) % Plt Count 148 (130-400) K/uL MPV 9.6 (7.4-10.4) fL Sodium 139 (136-145) mmol/L Potassium 4.0 (3.5-5.1) mmol/L Chloride 110 H (98-107) mmol/L Carbon Dioxide 26 (21-32) mmol/L Anion Gap 3.0 (3-11) BUN 18 (7-18) mg/dl Creatinine 0.92 (0.6-1.2) mg/dl Est Cr Clr Drug Dosing 40.1 ml/min Est GFR ( Amer) 66.7 ml/min Est GFR (Non-Af Amer) 57.6 ml/min BUN/Creatinine Ratio 19.5 (10-20) Glucose 93 (70-99) mg/dl Calcium 9.2 (8.5-10.1) mg/dl Phosphorus 2.9 (2.5-4.9) mg/dl Magnesium 1.7 L (1.8-2.4) mg/dl Total Bilirubin 0.4 (0.2-1) mg/dl AST 33 (15-37) U/L ALT 29 (12-78) U/L Alkaline Phosphatase 42 L (45-117) U/L Total Protein 6.0 L (6.4-8.2) gm/dl Albumin 3.0 L (3.4-5.0) gm/dl Globulin 3.0 (2.5-4.0) gm/dl Albumin/Globulin Ratio 1.0 (0.9-2) Medications Administered Current Inpatient Medications Acetaminophen (Acetaminophen 325 Mg Tab) 650 mg PO Q4H PRN PRN Reason: Moderate Pain Stop: 11/21/20 21:30 Acetaminophen (Acetaminophen 325 Mg Tab) 650 mg PO Q8 [facility] Stop: 11/21/20 19:50 Last Admin: 10/24/20 06:31 Dose: 650 mg Documented by: Hydrocodone Bitart/Acetaminophen (Hydrocodone/Acetaminophen 7.5/325mg Tab) 1 tab PO Q6H PRN PRN Reason: Pain Stop: 11/05/20 19:57 Last Admin: 10/23/20 05:54 Dose: 1 tab Documented by: Bupivacaine HCl (Bupivacaine 0.5 % 5 Mg/1 Ml Mpf 30ml Vial) 1 ml INFIL TODAY@0600 [facility] Stop: 10/24/20 18:00 Buspirone HCl (Buspirone 5 Mg Tab) 10 mg PO BID [facility] Stop: 11/21/20 20:59 Last Admin: 10/23/20 20:40 Dose: 10 mg Documented by: Clopidogrel Bisulfate (Clopidogrel Bisulfate 75 Mg Tab) 75 mg PO QAM [facility] Stop: 11/22/20 08:59 Last Admin: 10/23/20 09:57 Dose: 75 mg Documented by: Diphenoxylate HCl/Atropine (Diphenoxylate/Atropine 2.5/0.025mg Tab) 1 tab PO QID PRN PRN Reason: Diarrhea Stop: 11/21/20 21:30 Escitalopram Oxalate (Escitalopram Oxalate 10 Mg Tab) 15 mg PO QAM [facility] Stop: 11/22/20 08:59 Last Admin: 10/23/20 09:59 Dose: 15 mg Documented by: Ethyl Chloride (Ethyl Chloride Aer Spr 100 Ml Can) 1 sprays EXT TODAY@0600 [facility] Stop: 10/24/20 18:00 Ferrous Sulfate (Ferrous Sulfate 325 Mg Tab) 325 mg PO QAM [facility] Stop: 11/22/20 08:59 Last Admin: 10/23/20 09:57 Dose: 325 mg Documented by: Gabapentin (Gabapentin 800 Mg Tab) 800 mg PO TID [facility] Stop: 11/21/20 20:59 Last Admin: 10/23/20 20:40 Dose: 800 mg Documented by: Magnesium Sulfate/Dextrose (Magnesium Sulfate / D5w) 1 gm in 100 mls @ 50 mls/hr IV ONE ONE Stop: 10/24/20 09:32 Levothyroxine Sodium (Levothyroxine Sodium 100 Mcg Tablet) 100 mcg PO DAILYBB [facility] Stop: 11/22/20 06:29 Last Admin: 10/24/20 06:31 Dose: 100 mcg Documented by: Lidocaine (Lidocaine 5% 1 Patch) 1 patch TD QAM [facility] Stop: 11/22/20 10:59 Last Admin: 10/23/20 12:10 Dose: 1 patch Documented by: Lisinopril (Lisinopril 2.5 Mg Tab) 2.5 mg PO QAM [facility] Stop: 11/22/20 08:59 Last Admin: 10/23/20 10:01 Dose: 2.5 mg Documented by: Magnesium Oxide (Magnesium Oxide 400 Mg Tab) 400 mg PO BID [facility] Stop: 11/23/20 08:59 Methocarbamol (Methocarbamol 500 Mg Tablet) 500 mg PO TID [facility] Stop: 11/21/20 20:59 Last Admin: 10/23/20 20:42 Dose: 500 mg Documented by: Methylprednisolone Acetate (Methylprednisolone Acetate 80 Mg/Ml Vial) 80 mg IM TODAY@0600,0700 [facility] Stop: 10/24/20 18:00 Metoprolol Succinate (Metoprolol Succ 25mg Ext Rel Tab) 25 mg PO DAILY [facility] Stop: 11/22/20 08:59 Last Admin: 10/23/20 10:01 Dose: 25 mg Documented by: Miscellaneous (Remove Lidoderm Patch) 1 ea N/A DAILY@2100 [facility] Stop: 11/21/20 20:59 Last Admin: 10/23/20 20:42 Dose: 1 ea Documented by: Miscellaneous (Remove Lidoderm Patch) 1 ea N/A DAILY@2100 [facility] Stop: 11/22/20 20:59 Last Admin: 10/23/20 20:47 Dose: Not Given Documented by: Misoprostol (Misoprostol 50 Mcg Tab) 100 mcg PO QID [facility] Stop: 11/21/20 20:59 Last Admin: 10/23/20 20:40 Dose: 100 mcg Documented by: Morphine Sulfate (Morphine Sulfate 2 Mg/Ml Carp) 2 mg IV Q4H PRN PRN Reason: Pain (7-10) Stop: 11/06/20 10:39 Last Admin: 10/24/20 06:40 Dose: 2 mg Documented by: Multivitamins (Multivitamin Tab) 1 tab PO QAM YAN Stop: 11/22/20 08:59 Last Admin: 10/23/20 10:01 Dose: 1 tab Documented by: Ondansetron HCl (Ondansetron Inj 2 Mg/Ml 2 Ml Vial) 4 mg IV Q4H PRN PRN Reason: Nausea And Vomiting Stop: 11/21/20 21:30 Oxybutynin Chloride (Oxybutynin Chloride Xl 5 Mg Tabcr) 15 mg PO QAM [facility] Stop: 11/22/20 08:59 Last Admin: 10/23/20 10:00 Dose: 15 mg Documented by: Pantoprazole Sodium (Pantoprazole 40 Mg Tab) 40 mg PO BID YAN Stop: 11/21/20 21:59 Last Admin: 10/23/20 20:41 Dose: 40 mg Documented by: Rosuvastatin Calcium (Rosuvastatin Calcium 20 Mg Tab) 40 mg PO QAM [facility] Stop: 11/22/20 08:59 Last Admin: 10/23/20 10:02 Dose: 40 mg Documented by: Triamterene/Hydrochlorothiazide (Triamterene/Hctz 37.5/25mg Tab) 1 tab PO DAILY PRN PRN Reason: edema Stop: 11/21/20 21:30 Zolpidem Tartrate (Zolpidem Tartrate 5 Mg Tab) 5 mg PO HS PRN PRN Reason: sleep Stop: 11/21/20 19:57 Last Admin: 10/23/20 23:02 Dose: 5 mg Documented by: (1) Acute hip pain Laterality: right Qualified Code(s): M25.551 - Pain in right hip (2) CAD (coronary artery disease) Associated angina: without angina Coronary Disease-Associated Artery/Lesion type: [place] artery [place] vs. transplanted heart: [place] heart Qualified Code(s): I25.10 - Atherosclerotic heart disease of [place] coronary artery without angina pectoris (3) Hypothyroidism Hypothyroidism type: unspecified Qualified Code(s): E03.9 - Hypothyroidism, unspecified
[2020-10-24] MEDS ORDERED: MAGNESIUM SULFATE / D5W 1 GM/100 ML BAG IV ONE (08:00)
[2020-10-24] MEDS: busPIRone 5 MG TAB PO SCH ×2 (08:16→20:38)
[2020-10-24] MEDS: CLOPIDOGREL BISULFATE 75 MG TAB PO SCH (08:17)
[2020-10-24] MEDS: ESCITALOPRAM OXALATE 10 MG TAB PO SCH (08:17)
[2020-10-24] MEDS: FERROUS SULFATE 325 MG TAB PO SCH (08:19)
[2020-10-24] MEDS: GABAPENTIN 800 MG TAB PO SCH ×3 (08:20→20:38)
[2020-10-24] MEDS: lisinopril 2.5 MG TAB PO SCH (08:21)
[2020-10-24] MEDS: METOPROLOL SUCC 25MG EXT REL TAB PO SCH (08:22)
[2020-10-24] MEDS: METHOCARBAMOL 500 MG TABLET PO SCH ×3 (08:22→20:39)
[2020-10-24] MEDS: miSOPROStoL 50 MCG TAB PO SCH ×4 (08:23→20:38)
[2020-10-24] MEDS: MULTIVITAMIN TAB PO SCH (08:25)
[2020-10-24] MEDS: OXYBUTYNIN CHLORIDE XL 5 MG TABCR PO SCH (08:26)
[2020-10-24] MEDS: PANTOprazole 40 MG TAB PO SCH ×2 (08:26→20:39)
[2020-10-24] MEDS: ROSUVASTATIN CALCIUM 20 MG TAB PO SCH (08:27)
[2020-10-24] MEDS: MAGNESIUM OXIDE 400 MG TAB PO SCH ×2 (08:29→20:38)
--- NOTE | 2020-10-24 13:02 | Communication Note ---
Date of Service: October 24, 2020 Patient was seen in follow-up to initial consultation performed on 10/23/2020. Patient continues to have discomfort at the trochanteric bursa with radiation along the right iliotibial band laterally. Right hip joint continues to be benign and stable per the patient. She attended physical therapy earlier today and has had discomfort which is worsened compared to yesterday. Physical exam: Patient lies supine in hospital room bed. She is alert and oriented x3. Speech is clear and fluent. She is sitting up and eating her lunch. She has tenderness along the right greater trochanter and trochanteric bursa with radiation along the right iliotibial band with palpation. Range of motion is unchanged compared to yesterday. Full range of motion active. Full passive range of motion right hip. Right hip is reduced within the acetabulum. Negative FADIR. Negative Fabere. Right hip joint is stable. Distal pulses are palpable. Bilateral feet are warm. After obtaining verbal consent, a sterile prep was performed of the right trochanteric bursa region with Betadine and alcohol. After using approximately 1 cc of ethyl chloride refrigerant, 2 cc of 80 mg Depo-Medrol and 8 cc 0.5% Marcaine was injected into the right trochanteric bursa using a 22-gauge needle. The patient tolerated the procedure well. A sterile Band-Aid was applied after gentle compression was removed. Patient may continue to weight-bear as tolerated with assist x1. Continue physical therapy to tolerance including modalities. Thank for the opportunity to consult in the care of this patient. Patient may follow-up with Dr. Brunner as an outpatient in clinic at [facility].
--- NOTE | 2020-10-24 13:17 | Consultation Report ---
DATE OF CONSULTATION: 10/23/2020 HISTORY OF PRESENT ILLNESS: This is an 81-year-old female seen at the request of the tree surgeon helper tiffany donohue right hip pain. The patient had a successful right total hip arthroplasty approximately 15 year s prior; however, acutely noted pain which began on the right lateral aspect of the right hip when brenda araujo was getting out of one of her cars. She noted the pain worsened over a period of 48 hours and then she had to present to the Emergency Department as she was unable to take more than 1 or 2 steps afte r getting out of bed. She had no prior trauma. The hip was functioning as it should and she takes p rescribed pain medication as necessary for intermittent discomfort; however, has not had any difficul ty with her hip until this recent episode. The patient had no other associated trauma and no other a cute flares of arthritis that she can recall. PAST MEDICAL HISTORY: Osteoarthritis, acid reflux, coronary artery disease, chronic back pain, depre ssion, history of blood transfusion for gastric ulcer, gastric ulcer, hypothyroidism, spinal stenosis , TIA necessitating use of long-term Plavix. PAST SURGICAL HISTORY: Bilateral hip arthroplasty, abdominoplasty, panniculectomy, bilateral salping o-oophorectomy with hysterectomy, arthroplasty of left shoulder, cardiac catheterization, colonoscopy , CABG 1 vessel, EGD, T and A, epidural steroid injection in the lumbar spine, reverse total shoulder arthroplasty. ALLERGIES: ERGOTAMINE AND NITROGLYCERIN, VOMITING IS THE SECONDARY EFFECT. MEDICATIONS: Please note the medications in the medical record. SOCIAL HISTORY: Denies tobacco, alcohol or drug use. She currently lives alone at [facility]. She is retired. PHYSICAL EXAMINATION: This is a pleasant 81-year-old female, lying supine in her hospital room bed. She is alert and oriented x3. Speech is clear and fluent. Affect is appropriate. Focused exam of the right hip demonstrates a well-healed surgical incision, remote. No local erythema, edema, or [place] ration. Passive range of motion of the right hip demonstrates no discomfort including negative JESSICA E, negative FADIR. She has point tenderness over the trochanteric bursa with radiating discomfort wi th palpation along the lateral aspect of the thigh along the iliotibial band. There is no crepitatio n. No fluid collections and no fluctuance. Laboratories and radiographs were reviewed demonstrating a well-fixed total hip arthroplasty on the r ight. There is no evidence of loosening of the cup or the femoral component. There does appear to b e slight asymmetry of the polyethylene. No acute fractures. Osteopenia is evident. Some proximal f emoral osteolysis is noted around the trochanter. IMPRESSION: 1. Right greater trochanteric bursitis. 2. Iliotibial band syndrome. RECOMMENDATION: After discussion with the patient, recommend alternating heat and cold to the right hip, anti-inflammatories, and we will perform a steroid injection in the trochanteric bursa. Activit ies as tolerated with a walker and assist x1 until acute symptoms improve. Thank you for the opportunity to consult in the care of this patient. Job ID: [id number]
[2020-10-24] MEDS: LIDOCAINE 5% 1 PATCH TD SCH (14:37)
[2020-10-24] MEDS: methylPREDNISolone acetate 80 MG/ML VIAL IM SCH ×2 (14:44→14:53)
[2020-10-24] MEDS ORDERED: MoRPHine SULFATE 4 MG/ML 1 ML CARP\\VIAL IV STA (15:59)
[2020-10-24] MEDS: HYDROCODONE/ACETAMINOPHEN 7.5/325MG TAB PO PRN (17:34)
[2020-10-24] MEDS: hydrALAZINE HCL 20 MG/ML VIAL IV PRN (22:35)
[2020-10-24] MEDS: HYDROmorphone INJ 0.5 MG/0.5 ML SYR IV PRN (22:36)
[2020-10-24] MEDS: ZOLPIDEM TARTRATE 5 MG TAB PO PRN (23:21)
[2020-10-25] MEDS: HYDROmorphone INJ 0.5 MG/0.5 ML SYR IV PRN ×5 (02:20→21:58)
[2020-10-25] MEDS: ACETAMINOPHEN 325 MG TAB PO SCH ×3 (05:44→21:12)
[2020-10-25] MEDS: LEVOTHYROXINE SODIUM 100 MCG TABLET PO SCH (05:44)
[2020-10-25 06:07] LABS: Hematocrit (blood only) 40.8 % (37-47); Hemoglobin 13.6 g/dL (12.0-16.0)
[2020-10-25 06:35] LABS: BUN Creatinine Ratio 14.6 (10-20); Calcium 9.8 mg/dl (8.5-10.1); Creatinine Clr Calc Pharmacy 37.7 ml/min; Est GFR (African American) 61.8 ml/min; Est GFR (Non-African American) 53.3 ml/min; Magnesium 2.1 mg/dl (1.8-2.4); Potassium 4.1 mmol/L (3.5-5.1)
[2020-10-25] MEDS: LIDOCAINE 5% 1 PATCH TD SCH (07:11)
[2020-10-25] MEDS: lisinopril 2.5 MG TAB PO SCH (07:14)
[2020-10-25] MEDS: METHOCARBAMOL 500 MG TABLET PO SCH ×3 (07:15→20:12)
[2020-10-25] MEDS: miSOPROStoL 50 MCG TAB PO SCH ×4 (07:15→20:12)
[2020-10-25] MEDS: HYDROCODONE/ACETAMINOPHEN 7.5/325MG TAB PO PRN (07:15)
[2020-10-25] MEDS: busPIRone 5 MG TAB PO SCH ×2 (07:15→20:12)
[2020-10-25] MEDS: OXYBUTYNIN CHLORIDE XL 5 MG TABCR PO SCH (07:15)
[2020-10-25] MEDS: PANTOprazole 40 MG TAB PO SCH ×2 (07:16→20:12)
[2020-10-25] MEDS: CLOPIDOGREL BISULFATE 75 MG TAB PO SCH (07:16)
[2020-10-25] MEDS: GABAPENTIN 800 MG TAB PO SCH ×3 (07:16→20:12)
[2020-10-25] MEDS: MAGNESIUM OXIDE 400 MG TAB PO SCH ×2 (07:16→20:12)
[2020-10-25] MEDS: ESCITALOPRAM OXALATE 10 MG TAB PO SCH (07:16)
[2020-10-25] MEDS: METOPROLOL SUCC 25MG EXT REL TAB PO SCH (07:16)
[2020-10-25] MEDS: FERROUS SULFATE 325 MG TAB PO SCH (07:17)
[2020-10-25] MEDS: ROSUVASTATIN CALCIUM 20 MG TAB PO SCH (07:17)
[2020-10-25] MEDS: MULTIVITAMIN TAB PO SCH (07:17)
[2020-10-25] MEDS: hydrALAZINE HCL 20 MG/ML VIAL IV PRN (08:18)
--- NOTE | 2020-10-25 08:22 | Hospitalist Progress Note ---
Date of Service October 25, 2020 Assessment & Plan (1) Acute hip pain: Plan: Note: Epic reviewed - pt's in the medical center is charted as 38 whereas her in [facility] records is 11/14[birth year]. Pt notes her true is correct in [facility] here and previously had told people she was 2 years younger. - Admit to obs - control pain, - PT/OT evaluate the patient here and CM to assist with dc planning for rehab, lives at home alone - Xray reviewed - no periprosthetic fracture or other acute injury - CT R hip 1. Stable postoperative findings following total right hip arthroplasty. No acute periprosthetic fracture or lucency. 2. 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 - Lidocaine patch, tylenol around the clock, MS IV 2 mg Q4H prn severe pain, gabapentin 800 mg TID, will order prednisone taper to assist with inflammation if she is negative for occult blood on guiac test -- hx of gastric ulcer and black tarry stools. 10/23 -patient worked with PT today, and had excruciating pain, blood pressure also elevated d/t pain in 200s, received stat IV morphine. She has history of total hip arthroplasty, had multiple surgeries with [facility], will consult with orthopedics further 10/24 -continues to have severe pain at Right trochanteric bursa. Underwent steroid injection today with orthopedics. We will continue to closely monitor, PT, pain management as above 10/25 -underwent a steroid injection into the trochanteric bursa yesterday with orthopedics, continues to have severe pain (2) Ambulatory dysfunction: Plan: - PT/OT as above - pain control (3) CAD (coronary artery disease): Plan: -Follows with Dr. Adams as an outpatient, history of CAD and CABG x1,Remote SANDOVAL graft CABG, moderate valvular disease, AI/MR/TR without evidence of CHF -Cont plavix for now -Continue statin -Noted history of leg edema 2 weeks ago which was unexplained, resolved spontaneously, and did not require diuretic. Her weight has never exceeded 140 pounds therefore had not taken any of the previously prescribed triamterene HCTZ. (4) Dyslipidemia: Plan: -Continue statin therapy as above (5) Mild aortic stenosis: Plan: -History of such, noted on exam (6) Gastric ulcer: Plan: -Noted black tarry stools last week, reports that she has been having this occur every other week, -Consider GI consult, outpatient scope likely to be required soon -Continue Protonix twice daily, iron supplementation -Noted as she is on Plavix for cardiac history as above -Hemoccult ordered, hemoglobin is stable (7) Hypothyroidism: Plan: -Continue home levothyroxine 100 mcg daily DVT PPx: - teds, no chemical prophylaxis with possible GI bleed, already on Plavix CODE: DNR/DNI Dispo: From home, likely to remain in the hospital x 1-2 days. Admission and Anticipated Discharge Date Admission Date: October 24, 2020 Subjective Patient seen in follow-up of right hip pain Currently she is lying in bed, in no acute distress, s/p steroid injection to R trochanteric bursa yesterday Pain is significant with any minimal ambulation Denies any fevers, chills, chest pain, shortness of breath Review of Systems Review of Systems: All systems reviewed & are unremarkable except as noted in Subjective Physical Exam Physical Exam: General: awake, alert, in NAD, mildly uncomfortable due to pain Head: Normocephalic, atraumatic ENT: PERRL, EOMI, no pharyngeal exudate, mucous membranes moist Chest: Clear to auscultation, on room air, no adventitious breath sounds Cardiac: Regular rate and rhythm, +systolic murmur, no JVD, normal peripheral pulses, good capillary refill Abdominal: NABS x 4 quadrants, soft, nondistended, nontender to palpation, no rebound or guarding Extremities: Tender to palpation at R trochanteric bursa, outside normal inspection, no edema or erythema, moves extremities Psych: Normal mood and affect Neuro: AAO x 3, strength intact bilaterally in upper extremities and rated 5/5, strength not assessed in right lower extremity due to pain in the right hip, strength 5 out of 5 in left lower extremity. No gross motor deficits, speech is clear, no peripheral sensory deficits Results & Data Results & Data ([facility]) Vital Signs (Past 12 Hours) Vital Signs Temp Pulse Pulse Resp BP Pulse Ox 10/25/20 07:25 36.7 C 67 16 206/79 H 95 10/24/20 23:15 67 135/76 10/24/20 22:34 185/74 H 10/24/20 22:10 37.1 C 67 16 184/80 H 93 10/24/20 21:55 191/91 H 10/24/20 20:22 174/89 H Laboratory Results 10/25/20 10/25/20 Range/Units 05:54 05:54 Hgb 13.6 (12.0-16.0) g/dL Hct 40.8 (37-47) % Sodium 134 L (136-145) mmol/L Potassium 4.1 (3.5-5.1) mmol/L Chloride 103 (98-107) mmol/L Carbon Dioxide 29 (21-32) mmol/L Anion Gap 2.0 L (3-11) BUN 14 (7-18) mg/dl Creatinine 0.98 (0.6-1.2) mg/dl Est Cr Clr Drug Dosing 37.7 ml/min Est GFR ( Amer) 61.8 ml/min Est GFR (Non-Af Amer) 53.3 ml/min BUN/Creatinine Ratio 14.6 (10-20) Glucose 108 H (70-99) mg/dl Calcium 9.8 (8.5-10.1) mg/dl Magnesium 2.1 (1.8-2.4) mg/dl Medications Administered Current Inpatient Medications Acetaminophen (Acetaminophen 325 Mg Tab) 650 mg PO Q4H PRN PRN Reason: Moderate Pain Stop: 11/21/20 21:30 Acetaminophen (Acetaminophen 325 Mg Tab) 650 mg PO Q8 [facility] Stop: 11/21/20 19:50 Last Admin: 10/25/20 05:44 Dose: 650 mg Documented by: Hydrocodone Bitart/Acetaminophen (Hydrocodone/Acetaminophen 7.5/325mg Tab) 1 tab PO Q6H PRN PRN Reason: Pain Stop: 11/05/20 19:57 Last Admin: 10/24/20 17:34 Dose: 1 tab Documented by: Buspirone HCl (Buspirone 5 Mg Tab) 10 mg PO BID YAN Stop: 11/21/20 20:59 Last Admin: 10/25/20 07:15 Dose: 10 mg Documented by: Clopidogrel Bisulfate (Clopidogrel Bisulfate 75 Mg Tab) 75 mg PO QAM YAN Stop: 11/22/20 08:59 Last Admin: 10/25/20 07:16 Dose: 75 mg Documented by: Diphenoxylate HCl/Atropine (Diphenoxylate/Atropine 2.5/0.025mg Tab) 1 tab PO QID PRN PRN Reason: Diarrhea Stop: 11/21/20 21:30 Last Admin: 10/25/20 07:15 Dose: 1 tab Documented by: Escitalopram Oxalate (Escitalopram Oxalate 10 Mg Tab) 15 mg PO QAM [facility] Stop: 11/22/20 08:59 Last Admin: 10/25/20 07:16 Dose: 15 mg Documented by: Ferrous Sulfate (Ferrous Sulfate 325 Mg Tab) [facility] [place]: 11/22/20 08:59 Last Admin: 10/25/20 07:17 Dose: 325 mg Documented by: Gabapentin (Gabapentin 800 Mg Tab) 800 mg PO TID [facility] Stop: 11/21/20 20:59 Last Admin: 10/25/20 07:16 Dose: 800 mg Documented by: Hydralazine HCl (Hydralazine Hcl 20 Mg/Ml Vial) 7.5 mg IV Q6H PRN PRN Reason: Hypertension Stop: 11/23/20 22:11 Last Admin: 10/25/20 08:18 Dose: 7.5 mg Documented by: Hydromorphone HCl (Hydromorphone Inj 0.5 Mg/0.5 Ml Syr) 0.5 mg IV Q3H PRN PRN Reason: Pain Stop: 11/07/20 22:11 Last Admin: 10/25/20 08:18 Dose: 0.5 mg Documented by: Levothyroxine Sodium (Levothyroxine Sodium 100 Mcg Tablet) 100 mcg PO DAILYBB [facility] Stop: 11/22/20 06:29 Last Admin: 10/25/20 05:44 Dose: 100 mcg Documented by: Lidocaine (Lidocaine 5% 1 Patch) [facility] Stop: 11/22/20 10:59 Last Admin: 10/25/20 07:11 Dose: 1 patch Documented by: Lisinopril (Lisinopril 2.5 Mg Tab) 2.5 mg PO QAM [facility] Stop: 11/22/20 08:59 Last Admin: 10/25/20 07:14 Dose: 2.5 mg Documented by: Magnesium Oxide (Magnesium Oxide 400 Mg Tab) 400 mg PO BID [facility] Stop: 11/23/20 08:59 Last Admin: 10/25/20 07:16 Dose: 400 mg Documented by: Methocarbamol (Methocarbamol 500 Mg Tablet) 500 mg PO TID [facility] Stop: 11/21/20 20:59 Last Admin: 10/25/20 07:15 Dose: 500 mg Documented by: Metoprolol Succinate (Metoprolol Succ 25mg Ext Rel Tab) 25 mg PO DAILY [facility] Stop: 11/22/20 08:59 Last Admin: 10/25/20 07:16 Dose: 25 mg Documented by: Miscellaneous (Remove Lidoderm Patch) 1 ea N/A DAILY@2099 [facility] Stop: 11/21/20 20:59 Last Admin: 10/24/20 22:41 Dose: 1 ea Documented by: Miscellaneous (Remove Lidoderm Patch) 1 ea N/A DAILY@2099 [facility] Stop: 11/22/20 20:59 Last Admin: 10/24/20 22:42 Dose: Not Given Documented by: Misoprostol (Misoprostol 50 Mcg Tab) 100 mcg PO QID [facility] Stop: 11/21/20 20:59 Last Admin: 10/25/20 07:15 Dose: 100 mcg Documented by: Multivitamins (Multivitamin Tab) 1 tab PO [facility] Stop: 11/22/20 08:59 Last Admin: 10/25/20 07:17 Dose: 1 tab Documented by: Ondansetron HCl (Ondansetron Inj 2 Mg/Ml 2 Ml Vial) 4 mg IV Q4H PRN PRN Reason: Nausea And Vomiting Stop: 11/21/20 21:30 Oxybutynin Chloride (Oxybutynin Chloride Xl 5 Mg Tabcr) 15 mg PO [facility] Stop: 11/22/20 08:59 Last Admin: 10/25/20 07:15 Dose: 15 mg Documented by: Pantoprazole Sodium (Pantoprazole 40 Mg Tab) 40 mg PO BID [facility] Stop: 11/21/20 21:59 Last Admin: 10/25/20 07:16 Dose: 40 mg Documented by: Rosuvastatin Calcium (Rosuvastatin Calcium 20 Mg Tab) 40 mg PO QAM [facility] Stop: 11/22/20 08:59 Last Admin: 10/25/20 07:17 Dose: 40 mg Documented by: Triamterene/Hydrochlorothiazide (Triamterene/Hctz 37.5/25mg Tab) 1 tab PO DAILY PRN PRN Reason: edema Stop: 11/21/20 21:30 Zolpidem Tartrate (Zolpidem Tartrate 5 Mg Tab) 5 mg PO HS PRN PRN Reason: sleep Stop: 11/21/20 19:57 Last Admin: 10/24/20 23:21 Dose: 5 mg Documented by: (1) Acute hip pain Laterality: right Qualified Code(s): M25.551 - Pain in right hip (2) CAD (coronary artery disease) Associated angina: without angina Coronary Disease-Associated Artery/Lesion type: [place] artery [place] vs. transplanted heart: [place] heart Qualified Code(s): I25.10 - Atherosclerotic heart disease of [place] coronary artery without angina pectoris (3) Hypothyroidism Hypothyroidism type: unspecified Qualified Code(s): E03.9 - Hypothyroidism, unspecified
[2020-10-25] MEDS ORDERED: MoRPHine SULFATE 4 MG/ML 1 ML CARP\\VIAL IV STA (08:48)
[2020-10-25] MEDS: ONDANSETRON INJ 2 MG/ML 2 ML VIAL IV PRN (21:26)
[2020-10-26] MEDS: HYDROmorphone INJ 0.5 MG/0.5 ML SYR IV PRN ×5 (02:21→22:24)
[2020-10-26] MEDS: LEVOTHYROXINE SODIUM 100 MCG TABLET PO SCH (05:37)
[2020-10-26] MEDS: ACETAMINOPHEN 325 MG TAB PO SCH ×3 (05:37→21:36)
[2020-10-26 06:53] LABS: Hematocrit (blood only) 37.6 % (37-47); Hemoglobin 12.8 g/dL (12.0-16.0)
[2020-10-26] MEDS: hydrALAZINE HCL 20 MG/ML VIAL IV PRN (07:19)
[2020-10-26 07:25] LABS: BUN Creatinine Ratio 21.9 (10-20); Calcium 9.8 mg/dl (8.5-10.1); Creatinine Clr Calc Pharmacy 44.5 ml/min; Est GFR (African American) 75.6 ml/min; Est GFR (Non-African American) 65.2 ml/min; Phosphorus 3.2 mg/dl (2.5-4.9); Potassium 4.3 mmol/L (3.5-5.1)
[2020-10-26] MEDS: METOPROLOL SUCC 25MG EXT REL TAB PO SCH (08:44)
[2020-10-26] MEDS: CLOPIDOGREL BISULFATE 75 MG TAB PO SCH (08:44)
[2020-10-26] MEDS: MULTIVITAMIN TAB PO SCH (08:44)
[2020-10-26] MEDS: busPIRone 5 MG TAB PO SCH ×2 (08:44→20:20)
[2020-10-26] MEDS: FERROUS SULFATE 325 MG TAB PO SCH (08:44)
[2020-10-26] MEDS: METHOCARBAMOL 500 MG TABLET PO SCH ×3 (08:45→20:20)
[2020-10-26] MEDS: GABAPENTIN 800 MG TAB PO SCH ×3 (08:45→20:20)
[2020-10-26] MEDS: PANTOprazole 40 MG TAB PO SCH ×2 (08:45→20:20)
[2020-10-26] MEDS: lisinopril 2.5 MG TAB PO SCH (08:45)
[2020-10-26] MEDS: MAGNESIUM OXIDE 400 MG TAB PO SCH ×2 (08:45→20:20)
[2020-10-26] MEDS: ESCITALOPRAM OXALATE 10 MG TAB PO SCH (08:46)
[2020-10-26] MEDS: LIDOCAINE 5% 1 PATCH TD SCH (08:46)
[2020-10-26] MEDS: OXYBUTYNIN CHLORIDE XL 5 MG TABCR PO SCH (08:46)
[2020-10-26] MEDS: miSOPROStoL 50 MCG TAB PO SCH ×4 (08:47→20:20)
[2020-10-26] MEDS: ROSUVASTATIN CALCIUM 20 MG TAB PO SCH (08:47)
[2020-10-26] MEDS: HYDROCODONE/ACETAMINOPHEN 7.5/325MG TAB PO PRN (08:49)
--- NOTE | 2020-10-26 12:13 | Hospitalist Progress Note ---
Date of Service October 26, 2020 Assessment & Plan (1) Acute hip pain: Plan: Right greater trochanteric bursitis. Iliotibial band syndrome. Note: [facility] reviewed - pt's in [facility] is charted as [facility] whereas her in [facility] records is 11/14/36. Pt notes her true is correct in [facility] here and previously had told people she was 2 years younger. - Admit to obs - control pain, - PT/OT evaluate the patient here and CM to assist with dc planning for rehab, lives at home alone - Xray reviewed - no periprosthetic fracture or other acute injury - CT R hip 1. Stable postoperative findings following total right hip arthroplasty. No acute periprosthetic fracture or lucency. 2. 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 - Lidocaine patch, tylenol around the clock, MS IV 2 mg Q4H prn severe pain, gabapentin 800 mg TID, will order prednisone taper to assist with inflammation if she is negative for occult blood on guiac test -- hx of gastric ulcer and black tarry stools. 10/23 -patient worked with PT today, and had excruciating pain, blood pressure also elevated d/t pain in 200s, received stat IV morphine. She has history of total hip arthroplasty, had multiple surgeries with [facility], will consult with orthopedics further 10/24 -continues to have severe pain at Right trochanteric bursa. Underwent steroid injection today with orthopedics. We will continue to closely monitor, PT, pain management as above 10/25 -underwent a steroid injection into the trochanteric bursa yesterday with orthopedics, continues to have severe pain (2) Ambulatory dysfunction: Plan: - PT/OT as above - pain control (3) CAD (coronary artery disease): Plan: -Follows with Dr. Adams as an outpatient, history of CAD and CABG x1,Remote SANDOVAL graft CABG, moderate valvular disease, AI/MR/TR without evidence of CHF -Cont plavix for now -Continue statin -Noted history of leg edema 2 weeks ago which was unexplained, resolved spontaneously, and did not require diuretic. Her weight has never exceeded 140 pounds therefore had not taken any of the previously prescribed triamterene HCTZ. (4) Dyslipidemia: Plan: -Continue statin therapy as above (5) Mild aortic stenosis: Plan: -History of such, noted on exam (6) Gastric ulcer: Plan: -Noted black tarry stools last week, reports that she has been having this occur every other week - currently no dark stools and Hgb stable - if any changes - consider GI consult, outpatient scope likely to be required soon -Continue Protonix twice daily, iron supplementation -Noted as she is on Plavix for cardiac history as above -Hemoccult ordered, hemoglobin is stable (7) Hypothyroidism: Plan: -Continue home levothyroxine 100 mcg daily DVT PPx: - teds, initially no chemical prophylaxis with possible GI bleed, already on Plavix - will add heparin subq CODE: DNR/DNI Dispo: From home, likely to remain in the hospital x 1-2 days. Admission and Anticipated Discharge Date Admission Date: October 24, 2020 Subjective Patient seen in follow-up of right hip pain Currently she is lying in bed, in no acute distress, s/p steroid injection to R trochanteric bursa 2 days ago Pain is significant with any minimal ambulation Denies any fevers, chills, chest pain, shortness of breath Review of Systems Review of Systems: All systems reviewed & are unremarkable except as noted in Subjective Physical Exam Physical Exam: General: awake, alert, in NAD, mildly uncomfortable due to pain Head: Normocephalic, atraumatic ENT: PERRL, EOMI, no pharyngeal exudate, mucous membranes moist Chest: Clear to auscultation, on room air, no adventitious breath sounds Cardiac: Regular rate and rhythm, +systolic murmur, no JVD, normal peripheral pulses, good capillary refill Abdominal: NABS x 4 quadrants, soft, nondistended, nontender to palpation, no rebound or guarding Extremities: Tender to palpation at R trochanteric bursa, outside normal inspection, no edema or erythema, moves extremities Psych: Normal mood and affect Neuro: AAO x 3, strength intact bilaterally in upper extremities and rated 5/5, strength not assessed in right lower extremity due to pain in the right hip, strength 5 out of 5 in left lower extremity. No gross motor deficits, speech is clear, no peripheral sensory deficits Results & Data Results & Data ([facility]) Vital Signs (Past 12 Hours) Vital Signs Temp Pulse Resp BP Pulse Ox 10/26/20 09:56 79 117/71 96 10/26/20 07:52 134/71 10/26/20 07:18 36.2 C L 74 16 216/76 H 98 Laboratory Results 10/26/20 10/26/20 Range/Units 06:36 06:36 Hgb 12.8 (12.0-16.0) g/dL Hct 37.6 (37-47) % Sodium 138 (136-145) mmol/L Potassium 4.3 (3.5-5.1) mmol/L Chloride 105 (98-107) mmol/L Carbon Dioxide 28 (21-32) mmol/L Anion Gap 5.0 (3-11) BUN 18 (7-18) mg/dl Creatinine 0.83 (0.6-1.2) mg/dl Est Cr Clr Drug Dosing 44.5 ml/min Est GFR ( Amer) 75.6 ml/min Est GFR (Non-Af Amer) 65.2 ml/min BUN/Creatinine Ratio 21.9 H (10-20) Glucose 118 H (70-99) mg/dl Calcium 9.8 (8.5-10.1) mg/dl Phosphorus 3.2 (2.5-4.9) mg/dl Magnesium 2.0 (1.8-2.4) mg/dl Medications Administered Current Inpatient Medications Acetaminophen (Acetaminophen 325 Mg Tab) 650 mg PO Q4H PRN PRN Reason: Moderate Pain Stop: 11/21/20 21:30 Acetaminophen (Acetaminophen 325 Mg Tab) 650 mg PO Q8 [facility] Stop: 11/21/20 19:50 Last Admin: 10/26/20 05:37 Dose: 650 mg Documented by: Hydrocodone Bitart/Acetaminophen (Hydrocodone/Acetaminophen 7.5/325mg Tab) 1 tab PO Q6H PRN PRN Reason: Pain Stop: 11/05/20 19:57 Last Admin: 10/26/20 08:49 Dose: 1 tab Documented by: Buspirone HCl (Buspirone 5 Mg Tab) 10 mg PO BID [facility] Stop: 11/21/20 20:59 Last Admin: 10/26/20 08:44 Dose: 10 mg Documented by: Clopidogrel Bisulfate (Clopidogrel Bisulfate 75 Mg Tab) 75 mg PO QAM [facility] Stop: 11/22/20 08:59 Last Admin: 10/26/20 08:44 Dose: 75 mg Documented by: Diphenoxylate HCl/Atropine (Diphenoxylate/Atropine 2.5/0.025mg Tab) 1 tab PO QID PRN PRN Reason: Diarrhea Stop: 11/21/20 21:30 Last Admin: 10/25/20 07:15 Dose: 1 tab Documented by: Escitalopram Oxalate (Escitalopram Oxalate 10 Mg Tab) 15 mg PO QAM [facility] Stop: 11/22/20 08:59 Last Admin: 10/26/20 08:46 Dose: 15 mg Documented by: Ferrous Sulfate (Ferrous Sulfate 325 Mg Tab) 325 mg PO QAM [facility] Stop: 11/22/20 08:59 Last Admin: 10/26/20 08:44 Dose: 325 mg Documented by: Gabapentin (Gabapentin 800 Mg Tab) 800 mg PO TID [facility] Stop: 11/21/20 20:59 Last Admin: 10/26/20 08:45 Dose: 800 mg Documented by: Hydralazine HCl (Hydralazine Hcl 20 Mg/Ml Vial) 7.5 mg IV Q6H PRN PRN Reason: Hypertension Stop: 11/23/20 22:11 Last Admin: 10/26/20 07:19 Dose: 7.5 mg Documented by: Hydromorphone HCl (Hydromorphone Inj 0.5 Mg/0.5 Ml Syr) 0.5 mg IV Q3H PRN PRN Reason: Pain Stop: 11/07/20 22:11 Last Admin: 10/26/20 10:22 Dose: 0.5 mg Documented by: Levothyroxine Sodium (Levothyroxine Sodium 100 Mcg Tablet) 100 mcg PO DAILYBB [facility] Stop: 11/22/20 06:29 Last Admin: 10/26/20 05:37 Dose: 100 mcg Documented by: Lidocaine (Lidocaine 5% 1 Patch) 1 patch TD QAM [facility] Stop: 11/22/20 10:59 Last Admin: 10/26/20 08:46 Dose: 1 patch Documented by: Lisinopril (Lisinopril 2.5 Mg Tab) 2.5 mg PO QAM [facility] Stop: 11/22/20 08:59 Last Admin: 10/26/20 08:45 Dose: 2.5 mg Documented by: Magnesium Oxide (Magnesium Oxide 400 Mg Tab) 400 mg PO BID [facility] Stop: 11/23/20 08:59 Last Admin: 10/26/20 08:45 Dose: 400 mg Documented by: Methocarbamol (Methocarbamol 500 Mg Tablet) 500 mg PO TID [facility] Stop: 11/21/20 20:59 Last Admin: 10/26/20 08:45 Dose: 500 mg Documented by: Metoprolol Succinate (Metoprolol Succ 25mg Ext Rel Tab) 25 mg PO DAILY [facility] Stop: 11/22/20 08:59 Last Admin: 10/26/20 08:44 Dose: 25 mg Documented by: Toy (Remove Lidoderm Patch) 1 ea N/A DAILY@2100 [facility] Stop: 11/21/20 20:59 Last Admin: 10/25/20 20:13 Dose: 1 ea Documented by: Toy (Remove Lidoderm Patch) 1 ea N/A DAILY@2100 [facility] Stop: 11/22/20 20:59 Last Admin: 10/25/20 20:13 Dose: Not Given Documented by: Misoprostol (Misoprostol 50 Mcg Tab) 100 mcg PO QID [facility] Stop: 11/21/20 20:59 Last Admin: 10/26/20 08:47 Dose: 100 mcg Documented by: Multivitamins (Multivitamin Tab) 1 tab PO [facility] Stop: 11/22/20 08:59 Last Admin: 10/26/20 08:44 Dose: 1 tab Documented by: Ondansetron HCl (Ondansetron Inj 2 Mg/Ml 2 Ml Vial) 4 mg IV Q4H PRN PRN Reason: Nausea And Vomiting Stop: 11/21/20 21:30 Last Admin: 10/25/20 21:26 Dose: 4 mg Documented by: Oxybutynin Chloride (Oxybutynin Chloride Xl 5 Mg Tabcr) [facility] Stop: 11/22/20 08:59 Last Admin: 10/26/20 08:46 Dose: 15 mg Documented by: Pantoprazole Sodium (Pantoprazole 40 Mg Tab) 40 mg PO BID [facility] Stop: 11/21/20 21:59 Last Admin: 10/26/20 08:45 Dose: 40 mg Documented by: Rosuvastatin Calcium (Rosuvastatin Calcium 20 Mg Tab) 40 mg PO [facility] Stop: 11/22/20 08:59 Last Admin: 10/26/20 08:47 Dose: 40 mg Documented by: Triamterene/Hydrochlorothiazide (Triamterene/Hctz 37.5/25mg Tab) 1 tab PO DAILY PRN PRN Reason: edema Stop: 11/21/20 21:30 Zolpidem Tartrate (Zolpidem Tartrate 5 Mg Tab) 5 mg PO HS PRN PRN Reason: sleep Stop: 11/21/20 19:57 Last Admin: 10/24/20 23:21 Dose: 5 mg Documented by: (1) Acute hip pain Laterality: right Qualified Code(s): M25.551 - Pain in right hip (2) CAD (coronary artery disease) Associated angina: without angina Coronary Disease-Associated Artery/Lesion type: [place] artery [place] vs. transplanted heart: [place] heart Qualified Code(s): I25.10 - Atherosclerotic heart disease of [place] coronary artery without angina pectoris (3) Hypothyroidism Hypothyroidism type: unspecified Qualified Code(s): E03.9 - Hypothyroidism, unspecified
[2020-10-26] MEDS: HEPARIN SOD 5,000 UNIT/0.5 ML VIAL SQ SCH (20:20)
[2020-10-27] MEDS: ZOLPIDEM TARTRATE 5 MG TAB PO PRN ×2 (00:49→23:29)
[2020-10-27] MEDS: HYDROmorphone INJ 0.5 MG/0.5 ML SYR IV PRN ×4 (02:31→19:51)
[2020-10-27] MEDS: ONDANSETRON INJ 2 MG/ML 2 ML VIAL IV PRN (02:31)
[2020-10-27] MEDS: LEVOTHYROXINE SODIUM 100 MCG TABLET PO SCH (05:33)
[2020-10-27] MEDS: ACETAMINOPHEN 325 MG TAB PO SCH ×3 (05:33→21:41)
[2020-10-27] MEDS: busPIRone 5 MG TAB PO SCH ×2 (09:44→20:11)
[2020-10-27] MEDS: METOPROLOL SUCC 25MG EXT REL TAB PO SCH (09:45)
[2020-10-27] MEDS: OXYBUTYNIN CHLORIDE XL 5 MG TABCR PO SCH (09:45)
[2020-10-27] MEDS: FERROUS SULFATE 325 MG TAB PO SCH (09:45)
[2020-10-27] MEDS: METHOCARBAMOL 500 MG TABLET PO SCH ×3 (09:45→20:10)
[2020-10-27] MEDS: ESCITALOPRAM OXALATE 10 MG TAB PO SCH (09:46)
[2020-10-27] MEDS: MAGNESIUM OXIDE 400 MG TAB PO SCH ×2 (09:46→20:10)
[2020-10-27] MEDS: MULTIVITAMIN TAB PO SCH (09:46)
[2020-10-27] MEDS: CLOPIDOGREL BISULFATE 75 MG TAB PO SCH (09:46)
[2020-10-27] MEDS: HEPARIN SOD 5,000 UNIT/0.5 ML VIAL SQ SCH ×2 (09:47→20:11)
[2020-10-27] MEDS: GABAPENTIN 800 MG TAB PO SCH ×3 (09:47→20:10)
[2020-10-27] MEDS: LIDOCAINE 5% 1 PATCH TD SCH (09:47)
[2020-10-27] MEDS: lisinopril 2.5 MG TAB PO SCH (09:48)
[2020-10-27] MEDS: miSOPROStoL 50 MCG TAB PO SCH ×4 (09:48→20:09)
[2020-10-27] MEDS: ROSUVASTATIN CALCIUM 20 MG TAB PO SCH (09:48)
[2020-10-27] MEDS: PANTOprazole 40 MG TAB PO SCH ×2 (09:48→20:11)
[2020-10-27] MEDS ORDERED: IBUPROFEN 200 MG TAB PO STA (09:49)
[2020-10-27] MEDS: DICLOFENAC SOD 1% GEL 100 GM TUBE EXT SCH ×2 (17:26→21:41)
[2020-10-27] MEDS ORDERED: traMADol HCL 50 MG TABLET PO PRN (20:07)
[2020-10-27 20:58] LABS: Basophils # (auto) 0.02 K/uL (0-0.2); Basophils % (auto) 0.3 %; Eosinophils # (auto) 0.06 K/uL (0-0.5); Eosinophils % (auto) 0.8 %; Hemoglobin 12.7 g/dL (12.0-16.0); Immature Granulocytes # (auto) 0.02 K/uL (0.00-0.02); Immature Granulocytes % (auto) 0.3 %; Lymphocytes # (auto) 1.49 K/uL (1.2-3.4); Lymphocytes % (auto) 20.1 %; Mean Corpuscular Hgb Conc 33.4 g/dL (32-36); Mean Corpuscular Volume 95.7 fL (80-100); Mean Platelet Volume 9.5 fL (7.4-10.4); Monocytes # (auto) 0.69 K/uL (0.11-0.59); Monocytes % (auto) 9.3 %; Neutrophils # (auto) 5.14 K/uL (1.4-6.5); Neutrophils % (auto) 69.2 %; Platelet Count 206 K/uL (130-400); RDW Coefficient of Variation 13.6 % (11.5-14.5); RDW Standard Deviation 47.5 fL (36.4-46.3); Red Blood Count 3.97 M/uL (4.2-5.4); White Blood Count 7.42 K/uL (4.8-10.8)
--- NOTE | 2020-10-27 20:58 | Hospitalist Progress Note ---
Date of Service October 27, 2020 Assessment & Plan (1) Greater trochanteric bursitis of right hip: Plan: #. Right greater trochanteric bursitis. #. Iliotibial band syndrome. #. Ambulatory dysfunction Note: [facility] reviewed - pt's in [facility] is charted as 38 whereas her in [facility] records is [birth year]. Pt notes her true is correct in [facility] here and previously had told people she was 2 years younger. Patient has history of gastric ulcer and black tarry stools, hence not using p.o. NSAIDs. She is right hip: Stable postoperative finding following total right hip arthroplasty. No acute periprosthetic fracture lucency. No other acute findin gs. Control pain, use diclofenac gel scheduled. Continue with lidocaine patch, Tylenol [id number]. Use narcotics as needed but try to keep it low. Continue with gabapentin 800 mg 3 times daily. FOBT negative, if no improvement noted tomorrow from topical diclofenac, consider using p.o. steroid with ongoing GI prophylaxis. PT/OT evaluate the patient here and CM to assist with dc planning for rehab, lives at home alone Orthopedics on board: Status post steroid injection into the trochanteric bursa 10/24. Continue with pain meds, follow-up closely. #. CAD (coronary artery disease): -Follows with Dr. Adams as an outpatient, history of CAD and CABG x1,Remote SANDOVAL graft CABG, moderate valvular disease, AI/MR/TR without evidence of CHF -Cont plavix for now -Continue statin -Noted history of leg edema 2 weeks ago which was unexplained, resolved spontaneously, and did not require diuretic. Her weight has never exceeded 140 pounds therefore had not taken any of the previously prescribed triamterene HCTZ. #. Dyslipidemia: Plan: -Continue statin therapy as above #. Mild aortic stenosis: Plan: -History of such, noted on exam #. Gastric ulcer: - Noted black tarry stools last week, reports that she has been having this occur every other week - currently no dark stools and Hgb stable and FOBT negative - if any changes - consider GI consult, outpatient scope likely to be required soon -Continue Protonix twice daily, iron supplementation -Noted as she is on Plavix for cardiac history as above -Hemoglobin stable, continue to monitor #. Hypothyroidism: Plan: -Continue home levothyroxine 100 mcg daily DVT PPx: - teds, initially no chemical prophylaxis with possible GI bleed, already on Plavix - will add heparin subq CODE: DNR/DNI Dispo: From home, likely to remain in the hospital x 1-2 days. Admission and Anticipated Discharge Date Admission Date: October 24, 2020 Subjective Patient was lying in bed semiupright, on room air, in mild distress, AO x2 [not to person]. Patient reports right hip pain and is apparently in distress from it. Denies other review of symptoms. Per RN she is eating and moving bowels okay. Physical Exam Physical Exam: GENERAL: Alert and oriented x3. on RA. Mild distress. HEENT: No pallor, no icterus. Pupils equal, round and reactive to light. Oral mucosa moist. NECK: No JVD, no neck masses. HEART: S1 and S2 heard. Regular rate and rhythm. No murmur, no gallop. RESPIRATORY SYSTEM: Normal AP diameter. No accessory muscle use. No wheezing, no crackles. ABDOMEN: Soft, bowel sounds present, nontender, no distention. CENTRAL NERVOUS SYSTEM: Alert and oriented x3. No facial droop. Speech is clear. Obeys simple commands. Moves extremities. EXTREMITIES: No edema, no erythema seen. Right hip tenderness. Results & Data Results & Data ([facility]) Vital Signs (Past 12 Hours) Vital Signs Temp Pulse Resp BP Pulse Ox 10/27/20 15:12 81 115/65 93 10/27/20 15:00 37.1 C 84 18 89/54 L 95
[2020-10-27 21:11] LABS: Albumin Level 3.2 gm/dl (3.4-5.0); BUN Creatinine Ratio 23.1 (10-20); Blood Urea Nitrogen 25 mg/dl (7-18); Calcium 10.1 mg/dl (8.5-10.1); Carbon Dioxide 24 mmol/L (21-32); Chloride 104 mmol/L (98-107); Creatinine Clr Calc Pharmacy 33.9 ml/min; Est GFR (African American) 54.4 ml/min; Est GFR (Non-African American) 46.9 ml/min; Glucose 128 mg/dl (70-99); Lipase 205 U/L (73-393); Magnesium 2.1 mg/dl (1.8-2.4); Partial Thromboplastin Ratio 0.9; Partial Thromboplastin Time 24.2 Seconds (21.0-31.0); Potassium 4.5 mmol/L (3.5-5.1); Sodium 134 mmol/L (136-145)
[2020-10-27 21:16] LABS: Alanine Aminotransferase 27 U/L (12-78); Albumin Globulin Ratio 0.9 (0.9-2); Alkaline Phosphatase 45 U/L (45-117); Aspartate Aminotransferase 22 U/L (15-37); Bilirubin,Total 0.6 mg/dl (0.2-1); Globulin 3.5 gm/dl (2.5-4.0); Total Protein 6.7 gm/dl (6.4-8.2); Troponin I < 0.015 ng/ml (0-0.045)
[2020-10-27] MEDS ORDERED: SODIUM CHLORIDE 0.9% 1000ML 1,000 ML IV ONE (21:17)
--- NOTE | 2020-10-27 21:36 | XRay Report ---
XR chest 1V portable CLINICAL HISTORY: cp COMPARISON STUDY: March 11, 2018 FINDINGS: No pneumothorax. No pleural effusion. No large infiltrates or consolidative lesions are seen. Cardiomediastinal silhouette is within normal limits in size. No significant pulmonary vascular congestion.. Aorta is calcified. Osseous structures: Thoracic scoliosis and mild degenerative changes of the spine. Midline sternotom y wires are again seen. Bilateral prosthetic shoulder joints are seen. IMPRESSION: 1. No infiltrates or consolidative lesions. 2. Atherosclerosis. ACT 112: Negative or not required by law. The above report was generated using voice recognition software. It may contain grammatical, syntax o r spelling errors. Electronically signed by: Carolina Croft DO 10/27/2020 9:35 PM
[2020-10-28] MEDS ORDERED: OPTIRAY 320 125ml IV ONE (01:01)
[2020-10-28] MEDS: HYDROmorphone INJ 0.5 MG/0.5 ML SYR IV PRN ×4 (04:11→23:15)
[2020-10-28] MEDS: DICLOFENAC SOD 1% GEL 100 GM TUBE EXT SCH ×4 (04:23→21:59)
--- NOTE | 2020-10-28 05:33 | Communication Note ---
Date of Service: October 28, 2020 Overnight developments: 9/8, 8PM Patient complaining of transient right-sided chest pain as per RN. Nonpleuritic without shortness of breath as per patient. No cough symptoms. No recollection of recent trauma. Some radiation from right shoulder EKG as per my interpretation : Rate 70, NSR, normal axis, no ischemia troponin negative CT chest PE study initially No evidence of PE. No pulmonaryconsolidation. No pleural effusions. Mild cardiomegaly. No pericardial effusion. Scattered coronaryarteryatherosclerotic calcifications. Ectasia of ascending thoracic aortawith diameter of 3.7 cm. No thoracic aortic dissection. Multiple splenic granulomata. Chronic nondisplaced fracture of the right ninth posterolateral rib. Status post bilateral reverse total shoulder arthroplastieswith intact visualized hardware. S-shaped scoliosis of the thoracic and lumbar spine. Apparent small filling defect on image 48 series 2 is located in a branch of left lower lobe pulmonary vein. AP Right sided chest pain rule out referred pain from shoulder pathology Plain right shoulder x-ray Will relay to AM provider.
[2020-10-28] MEDS: ACETAMINOPHEN 325 MG TAB PO SCH ×3 (05:58→21:58)
[2020-10-28] MEDS: LEVOTHYROXINE SODIUM 100 MCG TABLET PO SCH (05:59)
--- NOTE | 2020-10-28 07:43 | CT Scan Report ---
INDICATION: [place] ^CALLED FOR PT ^r cp. TECHNIQUE: Multidetector row helical CT of the chest was performed. Coronal and sagittal reformations were obtained. Automated dose lowering techniques and/or adjustment according to patient size were u tilized for this exam. Comparison: Comparison is made to chest 1 view 10/27/2020 FINDINGS: Lungs and pleura: Atelectasis versus scarring is seen in the dependent portions of the lungs. Heart and pericardium: Cardiomegaly is seen with biatrial enlargement. Vessels: No evidence of pulmonary embolism. Moderate atherosclerotic calcifications are noted most pr ominently in the descending aorta and left main coronary artery. Ascending aorta measures 2.7 cm. Mediastinum and caryn: Unremarkable. Chest wall and lower neck: Unremarkable. Abdomen: A hiatal hernia is seen. Scattered granulomata are noted within the spleen compatible with p rior angiomatous infection. Bones: Bilateral reverse arthroplasties are noted in the shoulders. Median sternotomy wires are intac t. Dextrocurvature and degenerative changes are noted in the spine. Old healed rib fractures are on t he right. IMPRESSION: No evidence of pulmonary embolism. Additional findings as above. ACT 112: Negative or not required by law. Electronically signed by: Heath Rockwell M.D. 10/28/2020 7:42 AM
--- NOTE | 2020-10-28 08:34 | XRay Report ---
RIGHT SHOULDER 3 VIEWS CLINICAL HISTORY: Right shoulder pain. FINDINGS: 3 views of the right shoulder are compared to study dated 03/12/2018. The skeletal structure s are osteopenic. A right shoulder arthroplasty is in near-anatomic alignment. No periprosthetic luce ncy is identified. There is a displaced fracture along the inferior aspect of the glenoid. No additio nal fracture is seen. Productive degenerative change is noted at the acromioclavicular joint. The ove rlying soft tissues are normal as imaged. Midline sternotomy wires are noted. Right lung parenchyma i s clear as visualized. IMPRESSION: Displaced fracture along the inferior aspect of the glenoid. Electronically signed by: Avel Calero M.D. 10/28/2020 8:32 AM
[2020-10-28] MEDS: LIDOCAINE 5% 1 PATCH TD SCH (09:30)
[2020-10-28] MEDS: busPIRone 5 MG TAB PO SCH ×2 (09:33→20:25)
[2020-10-28] MEDS: MAGNESIUM OXIDE 400 MG TAB PO SCH ×2 (09:33→20:25)
[2020-10-28] MEDS: lisinopril 2.5 MG TAB PO SCH (09:34)
[2020-10-28] MEDS: CLOPIDOGREL BISULFATE 75 MG TAB PO SCH (09:34)
[2020-10-28] MEDS: METHOCARBAMOL 500 MG TABLET PO SCH ×3 (09:34→20:24)
[2020-10-28] MEDS: MULTIVITAMIN TAB PO SCH (09:34)
[2020-10-28] MEDS: ROSUVASTATIN CALCIUM 20 MG TAB PO SCH (09:34)
[2020-10-28] MEDS: FERROUS SULFATE 325 MG TAB PO SCH (09:34)
[2020-10-28] MEDS: PANTOprazole 40 MG TAB PO SCH ×2 (09:34→20:25)
[2020-10-28] MEDS: GABAPENTIN 800 MG TAB PO SCH ×3 (09:34→20:23)
[2020-10-28] MEDS: miSOPROStoL 50 MCG TAB PO SCH ×4 (09:34→20:23)
[2020-10-28] MEDS: METOPROLOL SUCC 25MG EXT REL TAB PO SCH (09:34)
[2020-10-28] MEDS: OXYBUTYNIN CHLORIDE XL 5 MG TABCR PO SCH (09:35)
[2020-10-28] MEDS: HEPARIN SOD 5,000 UNIT/0.5 ML VIAL SQ SCH ×2 (09:35→20:24)
[2020-10-28] MEDS: ESCITALOPRAM OXALATE 10 MG TAB PO SCH (09:35)
--- NOTE | 2020-10-28 17:45 | Hospitalist Progress Note ---
Date of Service October 28, 2020 Assessment & Plan (1) Greater trochanteric bursitis of right hip: Plan: #. Right greater trochanteric bursitis. #. Iliotibial band syndrome. #. Ambulatory dysfunction Note: [facility] reviewed - pt's in [facility] is charted as 38 whereas her in [facility] records is [birth year]. Pt notes her true is correct in [facility] here and previously had told people she was 2 years younger. Patient has history of gastric ulcer and black tarry stools, hence not using p.o. NSAIDs. CT right hip: Stable postoperative finding following total right hip arthroplasty. No acute periprosthetic fracture lucency. No other acute findings. Control pain, use diclofenac gel scheduled. Continue with lidocaine patch, Tylenol [id number]. Use narcotics as needed but try to keep it low. Continue with gabapentin 800 mg 3 times daily. Patient reporting improvement in her hip pain after diclofenac gel. PT/OT evaluate the patient here and CM to assist with dc planning for rehab, lives at home alone Orthopedics on board: Status post steroid injection into the trochanteric bursa 10/24. Continue with pain meds, follow-up closely. #. CAD (coronary artery disease): -Follows with Dr. Adams as an outpatient, history of CAD and CABG x1,Remote SANDOVAL graft CABG, moderate valvular disease, AI/MR/TR without evidence of CHF -Cont plavix for now -Continue statin -Noted history of leg edema 2 weeks ago which was unexplained, resolved spontaneously, and did not require diuretic. Her weight has never exceeded 140 pounds therefore had not taken any of the previously prescribed triamterene HCTZ. #. Dyslipidemia: Plan: -Continue statin therapy as above #. Mild aortic stenosis: Plan: -History of such, noted on exam #. 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 FOBT negative #. Hypothyroidism: Plan: -Continue home levothyroxine 100 mcg daily DVT PPx: - teds, initially no chemical prophylaxis with possible GI bleed, already on Plavix - will add heparin subq CODE: DNR/DNI Dispo: Fairly stable to be discharged to SNF. Patient was earlier refusing rehab, later on agreed to discuss the options with case specialist. Admission and Anticipated Discharge Date Admission Date: October 24, 2020 Subjective Patient was lying in bed semiupright, on room air, NAD, AOx3. Patient reports her right hip pain has improved markedly. Denies other review of symptoms. Per RN she is eating and moving bowels okay. Physical Exam Physical Exam: GENERAL: Alert and oriented x3. on RA. NAD. HEENT: No pallor, no icterus. Pupils equal, round and reactive to light. Oral mucosa moist. NECK: No JVD, no neck masses. HEART: S1 and S2 heard. Regular rate and rhythm. No murmur, no gallop. RESPIRATORY SYSTEM: Normal AP diameter. No accessory muscle use. No wheezing, no crackles. ABDOMEN: Soft, bowel sounds present, nontender, no distention. CENTRAL NERVOUS SYSTEM: Alert and oriented x3. No facial droop. Speech is clear. Obeys simple commands. Moves extremities. EXTREMITIES: No edema, no erythema seen. Right hip tenderness. Results & Data Results & Data ([facility]) Vital Signs (Past 12 Hours) Vital Signs Temp Pulse Resp BP Pulse Ox 10/28/20 14:32 36.6 C 85 16 115/67 94 10/28/20 09:28 87 111/60 10/28/20 07:21 37 C 74 18 203/103 H 97
--- NOTE | 2020-10-28 18:25 | Electrocardiogram Report ---
Test Reason : Blood Pressure : / mmHG Vent. Rate : 071 BPM Atrial Rate : 071 BPM P-R Int : 196 ms QRS Dur : 078 ms QT Int : 390 ms P-R-T Axes : 074 053 044 degrees QTc Int : 423 ms Sinus rhythm When compared with ECG of 13-MAR-2018 06:22, No significant change was found Confirmed by Albino Crowe ([id number]) on 10/28/2020 6:24:54 PM Referred By: REFERRED SELF Confirmed By:Cliff Crowe
[2020-10-28] MEDS: HYDROCODONE/ACETAMINOPHEN 7.5/325MG TAB PO PRN (20:44)
[2020-10-29] MEDS: HYDROmorphone INJ 0.5 MG/0.5 ML SYR IV PRN ×5 (03:29→23:30)
[2020-10-29] MEDS: DICLOFENAC SOD 1% GEL 100 GM TUBE EXT SCH ×4 (03:30→21:30)
[2020-10-29] MEDS: LEVOTHYROXINE SODIUM 100 MCG TABLET PO SCH (05:54)
[2020-10-29] MEDS: ACETAMINOPHEN 325 MG TAB PO SCH ×3 (05:54→21:30)
[2020-10-29 06:19] LABS: BUN Creatinine Ratio 21.6 (10-20); Creatinine Clr Calc Pharmacy 40.1 ml/min; Est GFR (African American) 66.7 ml/min; Est GFR (Non-African American) 57.6 ml/min; Magnesium 1.8 mg/dl (1.8-2.4); Potassium 4.2 mmol/L (3.5-5.1)
[2020-10-29] MEDS: HYDROCODONE/ACETAMINOPHEN 7.5/325MG TAB PO PRN (06:28)
[2020-10-29] MEDS ORDERED: MAGNESIUM OXIDE 400 MG TAB PO SCH (09:00)
[2020-10-29] MEDS: CLOPIDOGREL BISULFATE 75 MG TAB PO SCH (09:14)
[2020-10-29] MEDS: HEPARIN SOD 5,000 UNIT/0.5 ML VIAL SQ SCH ×2 (09:14→21:28)
[2020-10-29] MEDS: FERROUS SULFATE 325 MG TAB PO SCH (09:14)
[2020-10-29] MEDS: METOPROLOL SUCC 25MG EXT REL TAB PO SCH (09:14)
[2020-10-29] MEDS: busPIRone 5 MG TAB PO SCH ×2 (09:15→21:29)
[2020-10-29] MEDS: lisinopril 2.5 MG TAB PO SCH (09:15)
[2020-10-29] MEDS: ROSUVASTATIN CALCIUM 20 MG TAB PO SCH (09:15)
[2020-10-29] MEDS: OXYBUTYNIN CHLORIDE XL 5 MG TABCR PO SCH (09:15)
[2020-10-29] MEDS: GABAPENTIN 800 MG TAB PO SCH ×3 (09:15→21:30)
[2020-10-29] MEDS: METHOCARBAMOL 500 MG TABLET PO SCH ×3 (09:15→21:29)
[2020-10-29] MEDS: miSOPROStoL 50 MCG TAB PO SCH ×4 (09:16→21:29)
[2020-10-29] MEDS: MAGNESIUM OXIDE 400 MG TAB PO SCH ×2 (09:16→21:29)
[2020-10-29] MEDS: ESCITALOPRAM OXALATE 10 MG TAB PO SCH (09:16)
[2020-10-29] MEDS: MULTIVITAMIN TAB PO SCH (09:16)
[2020-10-29] MEDS: PANTOprazole 40 MG TAB PO SCH ×2 (09:16→21:30)
[2020-10-29] MEDS: LIDOCAINE 5% 1 PATCH TD SCH (10:28)
--- NOTE | 2020-10-29 13:01 | Communication Note ---
Date of Service: October 29, 2020 Asked to see patient for a right shoulder check. Patient had undergone a reverse total shoulder arthroplasty by Dr. Green sometime ago. She states that she has been doing well. She apparently was having a little bit of shoulder pain on this admission and a repeat x-ray was done of the right shoulder. This showed question of a displaced fracture of the inferior glenoid. Patient currently not complaining of any right shoulder pain. Dr. Marin reviewed the films and compared them with her postoperative and follow-up films from our office. There was some semblance of osteophyte formation on previous film with a question of lucency there previously. No treatment for this needed. Patient can be weightbearing as tolerated and range of motion as tolerated with the right shoulder. When entering the room, the patient complained of right hip pain and said that that was her major complaint. She had the right total hip arthroplasty done by Dr. Beck in 2001. She states that she has had no problems with it up until this point. She denies groin pain at this time. She states that it is difficult for her to ambulate because of the pain. She states that most the pain is on her lateral aspect. Looking at her right hip she has a well-healed scar from previous surgery. Bony prominence from her right greater trochanter with no erythema or boggy swelling. Palpation does prove to be painful. No pain in the right knee. Or right ankle. Certain range of motion does cause her discomfort. She currently has a Lidoderm patch over the contact bursal area. Patient states that she has had a bursa injection on the right hip by Dr. Brunner in the past which really did not help. We discussed that we would hold off on any attempt injecting the bursa at this time secondary to her past results. Continue use of Lidoderm patch versus Voltaren gel. X-rays reviewed of the right hip. I cannot appreciate any gross loosening. It does look like she may have some polyethylene bearing wear in the cup. The femoral head does not appear to be centrally located and appears to be migrating a little bit proximally. Patient currently states that she would like to follow-up with Dr. Marin in the future to see her for her hip and also any trouble she may be having with her shoulders. No further treatment for the right shoulder at this time.
--- NOTE | 2020-10-29 18:14 | Hospitalist Progress Note ---
Date of Service October 29, 2020 Assessment & Plan (1) Greater trochanteric bursitis of right hip: Plan: #. Right greater trochanteric bursitis. #. Iliotibial band syndrome. #. Ambulatory dysfunction Note: [facility] reviewed - pt's in [facility] is charted as 38 whereas her in [facility] records is [birth year]14[birth year]. Pt notes her true is correct in [facility] here and previously had told people she was 2 years younger. Patient has history of gastric ulcer and black tarry stools, hence not using p.o. NSAIDs. CT right hip: Stable postoperative finding following total right hip arthroplasty. No acute periprosthetic fracture lucency. No other acute findings. Control pain, use diclofenac gel scheduled. Continue with lidocaine patch, Tylenol [id number]. Use narcotics as needed but try to keep it low. Continue with gabapentin 800 mg 3 times daily. Patient reporting improvement in her hip pain after diclofenac gel. PT/OT evaluate the patient here and CM to assist with dc planning for rehab, lives at home alone Orthopedics on board: Status post steroid injection into the trochanteric bursa 10/24. Continue with pain meds, follow-up closely. #. CAD (coronary artery disease): -Follows with Dr. Adams as an outpatient, history of CAD and CABG x1,Remote SANDOVAL graft CABG, moderate valvular disease, AI/MR/TR without evidence of CHF -Cont plavix for now -Continue statin -Noted history of leg edema 2 weeks ago which was unexplained, resolved spontaneously, and did not require diuretic. Her weight has never exceeded 140 pounds therefore had not taken any of the previously prescribed triamterene HCTZ. #. Dyslipidemia: Plan: -Continue statin therapy as above #. Mild aortic stenosis: Plan: -History of such, noted on exam #. 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 FOBT negative #. Hypothyroidism: Plan: -Continue home levothyroxine 100 mcg daily DVT PPx: - teds, initially no chemical prophylaxis with possible GI bleed, already on Plavix - will add heparin subq CODE: DNR/DNI Dispo: Fairly stable to be discharged to SNF. Patient to go to [facility] at 10 AM tomorrow. Admission and Anticipated Discharge Date Admission Date: October 24, 2020 Subjective Patient was lying in bed semiupright, on room air, NAD, AOx3. Patient reports her right hip pain has improved markedly. Denies other review of symptoms. Per RN she is eating and moving bowels okay. Physical Exam Physical Exam: GENERAL: Alert and oriented x3. on RA. NAD. HEENT: No pallor, no icterus. Pupils equal, round and reactive to light. Oral mucosa moist. NECK: No JVD, no neck masses. HEART: S1 and S2 heard. Regular rate and rhythm. No murmur, no gallop. RESPIRATORY SYSTEM: Normal AP diameter. No accessory muscle use. No wheezing, no crackles. ABDOMEN: Soft, bowel sounds present, nontender, no distention. CENTRAL NERVOUS SYSTEM: Alert and oriented x3. No facial droop. Speech is clear. Obeys simple commands. Moves extremities. EXTREMITIES: No edema, no erythema seen. Right hip tenderness decreased. Results & Data Results & Data ([facility]) Vital Signs (Past 12 Hours) Vital Signs Temp Pulse Pulse Pulse Resp BP Pulse Ox 10/29/20 16:00 36.9 C 77 18 107/65 94 10/29/20 08:50 36.8 C 80 18 157/89 H 95 10/29/20 07:47 36.7 C 69 18 120/68 96
[2020-10-29] MEDS: ZOLPIDEM TARTRATE 5 MG TAB PO PRN (22:33)
[2020-10-30] MEDS: ACETAMINOPHEN 325 MG TAB PO SCH (05:18)
[2020-10-30] MEDS: LEVOTHYROXINE SODIUM 100 MCG TABLET PO SCH (05:18)
[2020-10-30] MEDS: DICLOFENAC SOD 1% GEL 100 GM TUBE EXT SCH (05:18)
[2020-10-30] MEDS: HYDROCODONE/ACETAMINOPHEN 7.5/325MG TAB PO PRN ×2 (05:35→10:05)
[2020-10-30] MEDS: busPIRone 5 MG TAB PO SCH (07:38)
[2020-10-30] MEDS: PANTOprazole 40 MG TAB PO SCH (07:38)
[2020-10-30] MEDS: METHOCARBAMOL 500 MG TABLET PO SCH (07:38)
[2020-10-30] MEDS: GABAPENTIN 800 MG TAB PO SCH (07:38)
[2020-10-30] MEDS: METOPROLOL SUCC 25MG EXT REL TAB PO SCH (07:39)
[2020-10-30] MEDS: OXYBUTYNIN CHLORIDE XL 5 MG TABCR PO SCH (07:39)
[2020-10-30] MEDS: MAGNESIUM OXIDE 400 MG TAB PO SCH (07:39)
[2020-10-30] MEDS: ROSUVASTATIN CALCIUM 20 MG TAB PO SCH (07:39)
[2020-10-30] MEDS: MULTIVITAMIN TAB PO SCH (07:39)
[2020-10-30] MEDS: lisinopril 2.5 MG TAB PO SCH (07:40)
[2020-10-30] MEDS: CLOPIDOGREL BISULFATE 75 MG TAB PO SCH (07:40)
[2020-10-30] MEDS: FERROUS SULFATE 325 MG TAB PO SCH (07:40)
[2020-10-30] MEDS: ESCITALOPRAM OXALATE 10 MG TAB PO SCH (07:40)
[2020-10-30] MEDS: LIDOCAINE 5% 1 PATCH TD SCH (07:41)
[2020-10-30] MEDS: miSOPROStoL 50 MCG TAB PO SCH (07:41)
[2020-10-30] MEDS: HEPARIN SOD 5,000 UNIT/0.5 ML VIAL SQ SCH (07:41)
--- NOTE | 2020-10-30 13:44 | Discharge Summary ---
Date of Service October 30, 2020 Admission HPI Per Admitting Provider This is an 81 yo F with PMHx of CAD, history of TIA, hypothyroidism, osteoarthritis, bilateral total hip surgeries, chronic back pain, depression, GERD who presents with acute onset Right hip pain which started on Sunday earlier this week. She lives at home independently. It has progressively worsened to the point where she is unable to take more than one step when getting out of bed. She denies recent injury, fall or other trauma to the right hip, no bruising or redness. There is no radiation of pain, no numbness or tingling, no bladder or bowel incontinence or saddle anesthesia. She reports having received injections in her lower back previously by Dr. Green with orthopedics, but has not seen him for several months. She takes gabapentin routinely for neuropathy and hydrocodone-acetaminophen tablets on an as needed basis, and required one earlier today. She reports she has been able to take her medications at home as they were with her in her bedroom. Today she could barely get out of bed at all, and had to call a friend who came to help her get out of her house and into an ambulance. Recently, not eating or drinking well since she has not been able to fix herself something in the past 3 days due to being in bed from the pain. She also reports history of a bleeding gastric ulcer, for which she takes Protonix and an iron supplement. Previously she has been scoped by Dr. Juan José quiroz. Approximately 1 week ago she had dark tarry stools and feels that it has been becoming more frequent, nearly every other week she has several days of bowel movements like this. Denies any nausea, vomiting or constipation issues. She has thought about calling them recently because of the increased frequency in this. Denies any lightheadedness, dizziness chest pain or shortness of breath. As an outpatient, she follows with cardiology, Dr. Adams and was seen approximately 2 weeks ago for swelling in bilateral lower extremities. Since then, the issue seemed to have resolved on its own. She was given a prescription for triamtereneHCTZ tea however did not end up using any of it. Of note, the patient's medical record was reviewed in [facility]- however date of is listed as 1940 which was somewhat confusing initially and prompted further investigation. The patient admits to lying about her age for many years, and did not think it mattered as she is always said she is 2 years younger than what she really is. She follows with cardiology through [facility], and reports that since she did not see them as often, so did not adjust her age within that medical system. Admission Exam Per Admitting Provider General: awake, alert, no apparent distress Head: Normocephalic, atraumatic ENT: PERRL, EOMI, no pharyngeal exudate, mucous membranes moist Chest: Clear to auscultation, on room air, no adventitious breath sounds Cardiac: Regular rate and rhythm, +systolic murmur, no JVD, normal peripheral pulses, good capillary refill Abdominal: NABS x 4 quadrants, soft, nondistended, nontender to palpation, no rebound or guarding Extremities: Right hip pain tender to palpation, normal inspection, no peripheral edema or erythema, calfs nontender to palpation Psych: Normal mood and affect Neuro: AAO x 3, strength intact bilaterally in upper extremities and rated 5/5, strength not assessed in right lower extremity due to pain in the right hip, strength 5 out of 5 in left lower extremity. No gross motor deficits, speech is clear, no peripheral sensory deficits Principal Diagnosis Right greater trochanteric bursitis Iliotibial band syndrome Ambulatory dysfunction Discharge Exam GENERAL: Alert and oriented x3. on RA. NAD. HEENT: No pallor, no icterus. Pupils equal, round and reactive to light. Oral mucosa moist. NECK: No JVD, no neck masses. HEART: S1 and S2 heard. Regular rate and rhythm. No murmur, no gallop. RESPIRATORY SYSTEM: Normal AP diameter. No accessory muscle use. No wheezing, no crackles. ABDOMEN: Soft, bowel sounds present, nontender, no distention. CENTRAL NERVOUS SYSTEM: Alert and oriented x3. No facial droop. Speech is clear. Obeys simple commands. Moves extremities. EXTREMITIES: No edema, no erythema seen. Right hip tendernessimproved. Discharge Data Allergies Allergy/AdvReac Type Severity Reaction Status Date / Time ergotamine AdvReac Intermediate vomiting Verified 10/22/20 16:05 nitroglycerin AdvReac Unknown "PROJECTILE Verified 10/22/20 16:05 VOMITTING" Consultations 10/22/20 18:24 ED Decision to Admit Stat 10/23/20 12:31 Consult Orthopedic Surgery Routine Ordered Studies 10/22/20 18:11 CT hip RT wo con Stat 10/27/20 21:16 CT angio chest PE protocol Urgent Hospital Course (1) Greater trochanteric bursitis of right hip: #. Right greater trochanteric bursitis. #. Iliotibial band syndrome. #. Ambulatory dysfunction Note: [facility] reviewed - pt's in [facility] is charted as [birth year] whereas her in [facility] records is [birth year]. Pt notes her true is correct in [facility] here and previously had told people she was 2 years younger. Patient has history of gastric ulcer and black tarry stools, hence not using p.o. NSAIDs. CT right hip: Stable postoperative finding following total right hip arthroplasty. No acute periprosthetic fracture lucency. No other acute findings. Control pain, use diclofenac gel scheduled. Continue with lidocaine patch, Tylenol [id number]. Use narcotics as needed but try to keep it low. Continue with gabapentin 800 mg 3 times daily. Patient reporting improvement in her hip pain after diclofenac gel. PT/OT evaluate the patient here and CM to assist with dc planning for rehab, lives at home alone Orthopedics on board: Status post steroid injection into the trochanteric bursa 10/24. Patient advised to continue with topical diclofenac gel and physical therapy. Avoid p.o. NSAIDs due to history of gastric ulcer and bleeding. Can take pain medications when in moderate to severe pain. Try to minimize the use of pain medication. #. CAD (coronary artery disease): -Follows with Dr. Adams as an outpatient, history of CAD and CABG x1,Remote SANDOVAL graft CABG, moderate valvular disease, AI/MR/TR without evidence of CHF -Cont plavix for now -Continue statin -Noted history of leg edema 2 weeks ago [employer] which was unexplained, resolved spontaneously, and did not require diuretic. Her weight has never exceeded 140 pounds therefore had not taken any of the previously prescribed triamterene HCTZ. #. Dyslipidemia: Plan: -Continue statin therapy as above #. Mild aortic stenosis: Plan: -History of such, noted on exam #. Gastric ulcer: - Noted black tarry stools last week [employer] EXEC[employer]IVE, reports that she has been having this occur every other week - currently no dark stools and Hgb stable and FOBT negative -Continue Protonix twice daily, iron supplementation -Noted as she is on Plavix for cardiac history as above -Hemoglobin stable, #. Hypothyroidism: -Continue home levothyroxine 100 mcg daily DVT PPx: - teds, initially no chemical prophylaxis with possible GI bleed, already on Plavix - will add heparin subq CODE: DNR/DNI Patient discharged to [facility], following instructions were communicated to the patient prior to discharge: Continue medications as prescribed. Continue applying diclofenac gel over right hip as instructed Continue daily physical therapy and stretching exercises Avoid oral NSAIDs use. Follow-up with your primary care physician within a week time. Follow-up with orthopedics in a month. Total Time Total Time Spent Total Time Spent (In Minutes): 40 Discharge Plan Discharge Items Patient Disposition: Transfer [facility] Reason For Visit: RT HIP PAIN Discharge Diagnosis: Right greater trochanteric bursitis Iliotibial band syndrome Ambulatory dysfunction Activity: Resume your previous activity Activity Comment: Continue with daily physical therapy and stretching exercises Non-emergency contact: Primary Care Provider Call non-emergency contact if: you have any medication questions, your symptoms worsen and your pain is worsening Follow-up/Referrals: Con Coughlin MD [Primary Care Provider] - (Date & Time 11/04/2020 9:20 AM Provider Gilbert Calloway MD Department Family Medicine [facility] ) Bret Marin MD [Surgeon] - (Follow up with Dr Marin for right hip pain and right shoulder recheck in 1 week.) Diet: Heart Healthy Addtl Attending Provider Instructions: Continue medications as prescribed. Continue applying diclofenac gel over right hip as instructed Continue daily physical therapy and stretching exercises Try to minimize oral NSAIDs use. Follow-up with your primary care physician within a week time. Follow-up with orthopedics in a month. Pending Studies at Discharge: No Stand-Alone Forms: My [facility] Skilled Items Patient informed of condition?: Yes DNR: Yes Discharge Level of Care: Skilled Communicable Disease: No Discharge Prognosis: Stable Lines: None Urinary Catheter: No Medications and DC Order Prescriptions: New acetaminophen 325 mg Tablet 650 mg PO Q8 PRN (Reason: mild pain) 30 Days Qty: 180 RF: 0 diclofenac sodium [Voltaren Arthritis Pain] 1 % Gel 4 g EXT Q6H 14 Days Qty: 224 RF: 0 tramadol 50 mg Tablet 50 mg PO Q6H PRN (Reason: moderate to severe pain) 7 Days Qty: 28 RF: 0 triamterene-hydrochlorothiazid [Maxzide-25mg] 37.5-25 mg Tablet 1 tab PO DAILY PRN (Reason: edema) 30 Days Qty: 30 RF: 0 lidocaine 5 % Adhesive Patch,Medicated 1 patch transdermal QAM 7 Days Qty: 7 RF: 0 Continued multivitamin tablet 1 tab PO QAM RF: 0 methocarbamol 500 mg tablet 500 mg PO TID Qty: 270 RF: 3 zolpidem 5 mg tablet 5 mg PO HS PRN (Reason: sleep) Qty: 30 RF: 5 misoprostol 100 mcg Tablet 100 mcg PO QID RF: 0 clopidogrel [Plavix] 75 mg Tablet 75 mg PO QAM RF: 0 levothyroxine [Levoxyl] 100 mcg Tablet 100 mcg PO QAM RF: 0 gabapentin 800 mg Tablet 800 mg PO TID RF: 0 pantoprazole [Protonix] 40 mg Tablet,Delayed Release (Dr/Ec) 40 mg PO BID RF: 0 ferrous sulfate 325 mg (65 mg iron) Tablet 325 mg PO QAM RF: 0 buspirone 10 mg Tablet 10 mg PO BID RF: 0 lisinopril 2.5 mg Tablet 2.5 mg PO QAM RF: 0 escitalopram oxalate [Lexapro] 10 mg Tablet 10 mg PO QAM RF: 0 rosuvastatin [Crestor] 40 mg Tablet 40 mg PO QAM RF: 0 hydrocodone-acetaminophen 7.5-325 mg tablet 1 tab PO Q6 PRN (Reason: Pain) RF: 0 metoprolol succinate 25 mg tablet extended release 24 hr 25 mg PO DAILY RF: 0 escitalopram oxalate 5 mg tablet 5 mg PO QAM RF: 0 oxybutynin chloride 15 mg tablet extended release 24 hr 15 mg PO QAM RF: 0 diphenoxylate-atropine 2.5-0.025 mg tablet 1 tab PO QID PRN (Reason: Diarrhea) RF: 0 ondansetron HCl [Zofran] 4 mg Tablet 4 mg PO Q6H PRN (Reason: Nausea) RF: 0 Discharge Orders: Discharge Order (Routine); Ordered 10/30/20 Ordered By: Catalina Mendoza Admission Data Admit Date/Time: 10/24/20 16:09 Attending Provider: Catalina Mendoza Admit Provider: Valeria Bolden Primary Care Provider: Con Coughlin. Other Providers: Abelardo Fallon ; Tristan Brunenr ; Walter Harvey [facility] ; [facility] ; Reece Drew at [place] Other Interventions: Discharge Summary Assessment (RN) Last Done: 10/30/20 09:25
== END 2020-10-30 10:18 | DRG 558 ==
LOC: ED 14:30 → 3N 14:30 → SUATTDRO 18:45 → 3N 21:00 → SUATTDRO 10-24 16:09

== ENCOUNTER 2021-03-01 14:21 | Inpatient (IN) ==
--- NOTE | 2021-03-01 14:44 | Emergency Department Note ---
Impression & Plan New onset a-fib, Fall, Back pain, Acute ankle pain, Anemia, Elevated troponin I level ED Provider Note NAME: Marquez LEACH AGE: 82 SEX: F : 11/14/1938 ARRIVES VIA: Ambulance INFORMANT: Patient, ED PROVIDER(S): Anthony Taylor MD Chief Complaint: Fall HPI: Patient is presented from home due to concern for fall. Patient states that she was walking to the doorway fell forward and then backward onto her buttocks and then striking her head. Patient denies any LOC. The patient is complained primarily of lumbar back pain and left ankle pain. Patient states that she is fallen around 7 PM last evening. The patient does take Plavix. The patient did take a hydrocodone prior to arrival which has helped her symptoms of her aching pain in her left ankle and lower back. Patient denies any numbness tingling or focal weakness. The patient does live [facility] [place]. Patient lives by herself. The patient states that after the fall the patient had been trying to hit the ground in order to alert her downstairs neighbors who did eventually present this morning. EMS initially arrived and got her up and the patient refused to go to the emergency department. Thereafter the patient did walk with a walker and did have pain in the lower back as well as left ankle. But the patient called EMS back and the patient presented here today. Patient has any fevers or chills. Patient is not vaccinated for COVID. The patient denies any alcohol tobacco or drug use ROS: See HPI for pertinent positives and negatives. A total of 10 systems were reviewed and otherwise negative. Past medical history: See below Surgical history: See below Social history: See below Physical Exam: GENERAL: NAD, wearing a mask, non-toxic. EYE EXAM: Normal conjunctiva. PERRL, no anisocoria and EOM's grossly intact w/o pain. Head: Normocephalic atraumatic. Face: Slight discomfort to the right midface with 2 cm area of ecchymosis. No obvious deformity. No pain to the bilateral CMC maxilla or mandible no malocclusion. OROPHARYNX: Moist mucus membranes. Grossly normal dentition. No exudate, posterior pharynx is clear, no tonsillar/uvular deviation or swelling. No cervical adenopathy, no submental, submandibular, or sublingual swelling. NECK: Supple, no nuchal rigidity, no adenopathy, non-tender. No signs of meningismus. FROM of the neck with good chin to chest and neck extension. No stridor. No midline C-spine TTP. Chest: No reproducible chest wall pain no posterior chest wall pain. LUNGS: Clear to auscultation. Normal chest wall mechanics. HEART: Irregularly irregular, no MRG. ABDOMEN: Abdomen soft, non-tender, normo-active bowel sounds, no masses, no rebound or guarding. BACK: Mild pain to the midline mid lumbar area without paraspinal discomfort or step-offs SKIN: No rashes. No bleeding UPPER EXTREMITIES: Upper extremities are grossly normal. No TTP or obvious deformity. LOWER EXTREMITIES: Mild pain to the distal lateral lower leg and ankle, compartments are soft neurovascular tact distally peer NEURO EXAM: A&O x3, cranial nerves II-XII grossly intact, normal speech, moves all 4 extremities on command w/o issue. Differential diagnoses: Fracture, dislocation, contusion, intra-abdominal, pneumothorax, intrathoracic, intracranial, neurologic, compartment syndrome, rhabdomyolysis, as well as other pathologies. Course: Patient was seen and evaluated the bedside. Full history physical exam was performed. EKG interpreted by me A. fib, rate of 78, normal QRS, normal axis, A. fib is a change from sinus rhythm from comparison EKG October 27, 2020. Imaging Studies: See Below Cardiac monitoring: An order was placed for continuous cardiac monitoring. The monitor shows a rate of 82 with irregularly irregular rhythm. MDM: Patient did present due to concern for fall and prolonged downtime. Blood work is obtained along with a CK and the patient was given IV fluids. Patient did have CT imaging of the head neck and back in addition to plain films completed. Patient has a normal white count with very mild anemia hemoglobin 11.8. Platelet count is unremarkable. Kidney function unremarkable. CK3 27 the patient did receive IV fluids. Troponin 2.06. COVID-negative. Patient's EKG does show new onset of A. fib. Patient states that she has no prior history of A. fib or arrhythmia. I did speak the on-call hospitalist Melania Bolden PA-C. The pat ient was treated by Dr. Wilcox. The patient did have a fall but it was ground- level and the patient has no abdominal or flank pain. Imaging is unremarkable. Heparin ordered by inpatient team Critical Care: I have personally spent 36 minutes of critical care time in direct management of this patient. This includes bedside care, interpretation of diagnostic studies, and testing, discussion with consultants, patient, and family members, and other require inpatient management activities. This 36 minutes is in excess of all separately billable procedures. Past Med/Surg History Medical History Acid reflux OCCASIONAL Arthritis CAD (coronary artery disease) Chronic back pain Depression History of blood transfusion 2012 03/ GASTRIC ULCER History of gastric ulcer 2012 Hypothyroidism Osteoarthritis Spinal stenosis Transient ischemic attack (TIA) ~2012>REASON FOR PLAVIX Surgical History H/O bilateral salpingo-oophorectomy with hyter History of abdominoplasty PANNICULECTOMY History of arthroplasty of left hip History of arthroplasty of left shoulder History of arthroplasty of right hip History of cardiac cath NO STENTS History of colonoscopy History of coronary artery bypass graft 1998 (1 VESSEL) History of esophagogastroduodenoscopy (EGD) History of hysterectomy with oophorectomy History of tonsillectomy and adenoidectomy S/P epidural steroid injection S/p reverse total shoulder arthroplasty RT/LEFT Family History Father , age 74 Allergic reaction Mother , 80s CHF (congestive heart failure) Other No family history of adverse response to anesthesia Social History Smoking Status: Smoker, status unknown Second Hand Exposure: No; Hx Alcohol Use: No Hx Substance Use: No Preferred Language: Estonian Communication Ability: Effective Visual Impairment: No Limitations Manager Nicu Required: No Beliefs That Will Affect Care: None Current Living Situation: Alone Current Living Situation Comment: [facility] Feels Safe at Home: Yes Assistive Devices: Glasses and Walker Allergies Allergies Allergy/AdvReac Type Severity Reaction Status Date / Time nitroglycerin AdvReac Severe "PROJECTILE Verified 03/01/21 16:16 VOMITTING" ergotamine AdvReac Intermediate vomiting Verified 03/01/21 16:16 Home Meds Home Medications Medication Instructions Recorded Confirmed buspirone 10 mg tablet 10 mg PO BID 01/23/18 03/01/21 clopidogrel 75 mg tablet (Plavix) 75 mg PO QAM 01/23/18 03/01/21 ferrous sulfate 325 mg (65 mg 325 mg PO QAM 01/23/18 03/01/21 iron) tablet gabapentin 800 mg tablet 800 mg PO TID 01/23/18 03/01/21 levothyroxine 100 mcg tablet 100 mcg PO DAILYBB 01/23/18 03/01/21 (Levoxyl) lisinopril 2.5 mg tablet 2.5 mg PO QAM 01/23/18 03/01/21 pantoprazole 40 mg tablet,delayed 40 mg PO DAILY 01/23/18 03/01/21 release (Protonix) rosuvastatin 40 mg tablet (Crestor) 40 mg PO QAM 01/23/18 03/01/21 multivitamin 1 tab PO QAM 11/11/18 03/01/21 misoprostol 100 mcg tablet 100 mcg PO QID 11/17/19 03/01/21 hydrocodone 7.5 mg-acetaminophen 1 tab PO Q6 PRN 10/22/20 03/01/21 325 mg tablet metoprolol succinate 25 mg 25 mg PO DAILY 10/22/20 03/01/21 tablet,extended release 24 hr oxybutynin chloride 15 mg 15 mg PO QAM 10/22/20 03/01/21 tablet,extended release 24 hr duloxetine 30 mg PO DAILY 03/01/21 03/01/21 lidocaine 4 % topical patch 1 patch TOPICAL DAILY PRN 03/01/21 03/01/21 melatonin 5 mg tablet 5 mg PO HS PRN 03/01/21 03/01/21 ondansetron HCl 4 mg tablet 4 mg PO Q6H PRN 03/01/21 03/01/21 Previous Rx's Medication Instructions Recorded methocarbamol 500 mg tablet 500 mg PO TID #270 tab 05/24/20 Results & Data (ED) Vital Signs Vital Signs - 24 hr 03/01/21 14:38 03/01/21 14:41 03/01/21 17:14 Temperature 36.8 C Temperature Source Oral Pulse Rate 86 Pulse Rate [Apical] 92 H Pulse Rhythm Irregular Pulse Rhythm [Apical] Irregular Pulse Strength Normal Respiratory Rate 17 17 18 Respiratory Effort / Characteristics Non-Labored Respiratory Depth Normal Blood Pressure 157/90 H Blood Pressure Mean 112 Pulse Oximetry 98 96 96 Oxygen Delivery Method Room Air Room Air Sepsis Recent Fever Within 48 Hours No Sepsis New/Unexplained Change in Mental Status No Sepsis Action Taken by Nursing No Action Required Home Medications Current Medication List: was personally reviewed by me Laboratory Data Attestation: I reviewed the patient's lab results. Result diagrams: 03/01/21 14:41 03/01/21 14:41 Lab Results 03/01/21 03/01/21 03/01/21 Range/Units 14:41 14:41 17:15 WBC 7.62 (4.8-10.8) K/uL RBC 3.77 L (4.2-5.4) M/uL Hgb 11.8 L (12.0-16.0) g/dL Hct 37.0 (37-47) % MCV 98.1 (80-100) fL MCH 31.3 (25-34) pg MCHC 31.9 L (32-36) g/dL RDW Std Deviation 49.1 H (36.4-46.3) fL RDW Coeff of Howie 13.9 (11.5-14.5) % Plt Count 218 (130-400) K/uL MPV 9.9 (7.4-10.4) fL Immature Gran % (Auto) 0.3 % Neut % (Auto) 69.9 % Lymph % (Auto) 17.5 % [place] % (Auto) 11.5 % Eos % (Auto) 0.3 % Baso % (Auto) 0.5 % Neut # (Auto) 5.33 (1.4-6.5) K/uL Lymph # (Auto) 1.33 (1.2-3.4) K/uL [place] # (Auto) 0.88 H (0.11-0.59) K/uL Eos # (Auto) 0.02 (0-0.5) K/uL Baso # (Auto) 0.04 (0-0.2) K/uL Immature Gran # (Auto) 0.02 (0.00-0.02) K/uL Sodium 140 (136-145) mmol/L Potassium 3.8 (3.5-5.1) mmol/L Chloride 108 H (98-107) mmol/L Carbon Dioxide 26 (21-32) mmol/L Anion Gap 6 (3-11) BUN 15 (6-23) mg/dl Creatinine 0.76 (0.6-1.2) mg/dl Est Cr Clr Drug Dosing Not Reportable Est GFR ( Amer) 83.5 ml/min Est GFR (Non-Af Amer) 72.0 ml/min BUN/Creatinine Ratio 19.7 (10-20) Glucose 102 H (70-99) mg/dl Calcium 10.0 (8.5-10.1) mg/dl Total Bilirubin 1.0 (0.2-1.0) mg/dl AST 28 (13-39) U/L ALT 25 (7-52) U/L Alkaline Phosphatase 63 (34-104) U/L Total Creatine Kinase 327 H (26-192) U/L Troponin I 0.06 H* (0-0.04) ng/ml Total Protein 6.2 (6.0-8.3) gm/dl Albumin 3.5 (3.4-5.0) gm/dl Globulin 2.7 (2.5-4.0) gm/dl Albumin/Globulin Ratio 1.3 (0.9-2) SARS-CoV-2, RNA, NAAT NEGATIVE (NEGATIVE) Administered Medications Discontinued Medications Sodium Chloride (Nss) 500 mls @ 999 mls/hr IV .Q31M YAN Stop: 03/01/21 15:45 Last Infusion: 03/01/21 16:04 Dose: 0 mls/hr Documented by: [id number] Admin: 03/01/21 15:22 Dose: 999 mls/hr Documented by: [id number] Imaging Data Radiologist's Impression: Cervical Spine CT 03/01/21 15:01 CT cervical spine wo con CLINICAL HISTORY: Status post fall with neck pain. COMPARISON STUDY: No previous studies for comparison. CT DOSE: 1996.91 mGy.cm TECHNIQUE: Standard CT of the Cervical Spine was performed without IV contrast. A dose lowering technique was utilized adhering to the principles of ALARA. FINDINGS: Bones: The bones are osteopenic. There is no evidence for an acute fracture or malalignment. The heights of the vertebral bodies are maintained. The vertebral bodies are in anatomic alignment. The odontoid is intact. Degenerative changes are seen at the atlantoaxial articulation. Disc spaces:Moderate to marked disc space narrowing is present from C5 through C7 with endplate sclerosis and osteophyte formation. Mild disc space narrowing is seen throughout the remainder of the cervical spine. Apophyseal joints:Extensive degenerative apophyseal joint disease present bilaterally. Soft tissues:The prevertebral soft tissues are within normal limits. IMPRESSION: Osteopenia with degenerative disc and degenerative joint disease. No acute abnormality. ACT 112: Negative or not required by law. Electronically signed by: González Patel M.D. 03/01/2021 4:[address] 03/01/21 15:01 CT head/brain wo con CLINICAL HISTORY: Trauma Technique: Contiguous axial CT images of the head were acquired from the base of the skull to the vertex without intravenous contrast administration. Images were viewed in brain, subdural and bone windows. Automated dose lowering techniques and/or adjustment according to patient size were utilized for this exam. Comparison: Comparison is made to CT head 03/11/2018 Findings: Areas of decreased attenuation are present in the periventricular and subcortical white matter bilaterally consistent with small vessel ischemic disease. Generalized cerebral atrophy with commensurate enlargement of the ventricles, sulci, and cisterns is also present. There is no acute intracranial hemorrhage or evidence of acute territorial infarction. No shift of the midline structures, mass effect, or extra-axial abnormalities are shown. Atherosclerotic calcifications are present in the intracranial segments of the internal carotid arteries. Imaged portions of the paranasal sinuses and mastoid air cells are clear. The orbits appear normal. There are no acute fractures of the calvaria or scalp swelling. Impression: No acute intracranial hemorrhage, no evidence of acute territorial infarction or other acute intracranial disease process. ACT 112: Negative or not required by law. Electronically signed by: Heath Rockwell M.D. 03/01/2021 4:21 PM Hip/Pelvis X-Ray 03/01/21 15:01 XR hip LT 2V w pelvis CLINICAL HISTORY: Left hip pain following fall. COMPARISON: Pelvis radiograph October 22, 2020. FINDINGS: Sacroiliac joints and symphysis pubis are intact. Bilateral hip arthroplasties are noted. No periprosthetic fracture is noted. Alignment is anatomic. No acute fracture is identified within the pelvis or hips. IMPRESSION: 1. No acute fracture within the pelvis or hips. 2. Status post bilateral total hip arthroplasty. Hardware intact. No periprosthetic fracture. ACT 112: Negative or not required by law. Electronically signed by: Anthony Borden M.D. 03/01/2021 4:[address] 03/01/21 15:01 CT lumbar spine wo con CLINICAL HISTORY: Trauma TECHNIQUE: Multidetector row helical CT of the lumbar spine was performed without administration of intravenous contrast. Coronal and sagittal reformations were obtained. Automated dose lowering techniques and/or adjustment according to patient size were utilized for this exam. Comparison: None available at the time of this dictation. FINDINGS: For counting purposes, the last complete intervertebral disc space is considered L5-S1. No acute fractures are identified. Degenerative changes are noted in the visualized spine. Scoliosis is seen. Surrounding soft tissues are unremarkable. IMPRESSION: Degenerative changes without evidence of acute abnormality. ACT 112: Negative or not required by law. Electronically signed by: Heath Rockwell M.D. 03/01/2021 4:[address] 03/01/21 15:01 CT thoracic spine wo con CLINICAL HISTORY: Status post fall with back pain COMPARISON STUDY: No previous studies for comparison. CT DOSE: TECHNIQUE: Standard CT of the Thoracic Spine was performed without IV contrast. A dose lowering technique was utilized adhering to the principles of ALARA. FINDINGS: Bones: The bones are osteopenic. Minimal old anterior wedge deformities are present involving T6, T7 and T8. There is no evidence for an acute fracture or malalignment. The heights of the remaining thoracic vertebral bodies are maintained. There is a mild dextroscoliotic curve of the thoracic spine. The vertebral bodies are otherwise in anatomic alignment. Disc spaces: Moderate disc space narrowing is seen throughout the thoracic spine with endplate cirrhosis and osteophyte formation. Pedicles::The pedicles are intact bilaterally. Soft tissues: The paraspinal soft tissues are within normal limits. IMPRESSION: Osteopenia and degenerative disc disease with no acute osseous pathology. ACT 112: Negative or not required by law. Electronically signed by: González Patel M.D. 03/01/2021 4:23 PM Ankle X-Ray 03/01/21 15:02 XR ankle LT min 3V routine CLINICAL HISTORY: Injury with left leg pain. COMPARISON STUDY: No previous studies for comparison. TECHNIQUE: 3 left ankle views FINDINGS: Bones: There is no evidence for an acute fracture or dislocation. There is no lytic or blastic lesion. Joints: The joint spaces are maintained. The bones are in anatomic alignment. Soft tissues: There is moderate soft tissue swelling surrounding the ankle. There is no radiopaque foreign body. IMPRESSION: No acute osseous pathology. Soft tissue swelling. ACT 112: Negative or not required by law. Electronically signed by: González Patel M.D. 03/01/2021 4:06 PM Tibia/Fibula X-Ray 03/01/21 15:02 XR tibia fibula LT 2V CLINICAL HISTORY: Injury with left leg pain. COMPARISON STUDY: No previous studies for comparison. TECHNIQUE: AP and lateral left lower leg views FINDINGS: Bones: There is no evidence for an acute fracture or dislocation. There is no lytic or blastic lesion. Joints: The joint spaces are maintained. The bones are in anatomic alignment. Soft tissues: There is soft tissue swelling present surrounding the lower leg and ankle. There is no radiopaque foreign body. IMPRESSION: No acute osseous pathology. Soft tissue swelling. ACT 112: Negative or not required by law. Electronically signed by: González Patel M.D. 03/01/2021 4:07 PM Discharge Plan Visit Data Chief Complaint: Fall ED Provider: Anthony Taylor Discharge Problem: New onset a-fib, Fall, Back pain, Acute ankle pain, Anemia, Elevated troponin I level Patient Disposition: Admitted As Inpatient Forms Stand Alone Forms: [facility] Prescriptions Prescriptions: No Action multivitamin tablet 1 tab PO QAM RF: 0 methocarbamol 500 mg tablet 500 mg PO TID Qty: 270 RF: 3 misoprostol 100 mcg Tablet 100 mcg PO QID RF: 0 clopidogrel [Plavix] 75 mg Tablet 75 mg PO QAM RF: 0 levothyroxine [Levoxyl] 100 mcg Tablet 100 mcg PO DAILYBB RF: 0 gabapentin 800 mg Tablet 800 mg PO TID RF: 0 pantoprazole [Protonix] 40 mg Tablet,Delayed Release (Dr/Ec) 40 mg PO DAILY RF: 0 ferrous sulfate 325 mg (65 mg iron) Tablet 325 mg PO QAM RF: 0 buspirone 10 mg Tablet 10 mg PO BID RF: 0 lisinopril 2.5 mg Tablet 2.5 mg PO QAM RF: 0 rosuvastatin [Crestor] 40 mg Tablet 40 mg PO QAM RF: 0 hydrocodone-acetaminophen 7.5-325 mg tablet 1 tab PO Q6 PRN (Reason: Pain) RF: 0 metoprolol succinate 25 mg tablet extended release 24 hr 25 mg PO DAILY RF: 0 oxybutynin chloride 15 mg tablet extended release 24 hr 15 mg PO QAM RF: 0 lidocaine 4 % Adhesive Patch,Medicated 1 patch TOPICAL DAILY PRN (Reason: Pain) RF: 0 ondansetron HCl [Zofran] 4 mg Tablet 4 mg PO Q6H PRN (Reason: Nausea) RF: 0 melatonin 5 mg Tablet 5 mg PO HS PRN (Reason: Insomnia) RF: 0 duloxetine 30 mg 30 mg PO DAILY RF: 0 Referrals Referrals: Con Coughlin MD [Primary Care Provider] -
[2021-03-01 15:08] LABS: Basophils # (auto) 0.04 K/uL (0-0.2); Basophils % (auto) 0.5 %; Eosinophils # (auto) 0.02 K/uL (0-0.5); Eosinophils % (auto) 0.3 %; Hemoglobin 11.8 g/dL (12.0-16.0); Immature Granulocytes # (auto) 0.02 K/uL (0.00-0.02); Immature Granulocytes % (auto) 0.3 %; Lymphocytes # (auto) 1.33 K/uL (1.2-3.4); Lymphocytes % (auto) 17.5 %; Mean Corpuscular Hemoglobin 31.3 pg (25-34); Mean Corpuscular Hgb Conc 31.9 g/dL (32-36); Mean Corpuscular Volume 98.1 fL (80-100); Mean Platelet Volume 9.9 fL (7.4-10.4); Monocytes # (auto) 0.88 K/uL (0.11-0.59); Monocytes % (auto) 11.5 %; Neutrophils # (auto) 5.33 K/uL (1.4-6.5); Neutrophils % (auto) 69.9 %; Platelet Count 218 K/uL (130-400); RDW Coefficient of Variation 13.9 % (11.5-14.5); RDW Standard Deviation 49.1 fL (36.4-46.3); Red Blood Count 3.77 M/uL (4.2-5.4); White Blood Count 7.62 K/uL (4.8-10.8)
[2021-03-01] MEDS ORDERED: SODIUM CHLORIDE 0.9% 500 ML IV SCH (15:15)
[2021-03-01 15:33] LABS: Alanine Aminotransferase 25 U/L (7-52); Albumin Globulin Ratio 1.3 (0.9-2); Albumin Level 3.5 gm/dl (3.4-5.0); Alkaline Phosphatase 63 U/L (34-104); Anion Gap 6 (3-11); Aspartate Aminotransferase 28 U/L (13-39); BUN Creatinine Ratio 19.7 (10-20); Blood Urea Nitrogen 15 mg/dl (6-23); Carbon Dioxide 26 mmol/L (21-32); Chloride 108 mmol/L (98-107); Creatine Kinase 327 U/L (26-192); Est GFR (African American) 83.5 ml/min; Globulin 2.7 gm/dl (2.5-4.0); Glucose 102 mg/dl (70-99); Potassium 3.8 mmol/L (3.5-5.1); Sodium 140 mmol/L (136-145); Total Protein 6.2 gm/dl (6.0-8.3)
[2021-03-01 16:02] LABS: Troponin I 0.06 ng/ml (0-0.04)
--- NOTE | 2021-03-01 16:05 | XRay Report ---
XR hip LT 2V w pelvis CLINICAL HISTORY: Left hip pain following fall. COMPARISON: Pelvis radiograph October 22, 2020. FINDINGS: Sacroiliac joints and symphysis pubis are intact. Bilateral hip arthroplasties are noted. No periprosthetic fracture is noted. Alignment is anatomic. No acute fracture is identified within th e pelvis or hips. IMPRESSION: 1. No acute fracture within the pelvis or hips. 2. Status post bilateral total hip arthroplasty. Hardware intact. No periprosthetic fracture. ACT 112: Negative or not required by law. Electronically signed by: Anthony Borden M.D. 03/01/2021 4:04 PM
--- NOTE | 2021-03-01 16:07 | XRay Report ---
XR ankle LT min 3V routine CLINICAL HISTORY: Injury with left leg pain. COMPARISON STUDY: No previous studies for comparison. TECHNIQUE: 3 left ankle views FINDINGS: Bones: There is no evidence for an acute fracture or dislocation. There is no lytic or blastic lesion . Joints: The joint spaces are maintained. The bones are in anatomic alignment. Soft tissues: There is moderate soft tissue swelling surrounding the ankle. There is no radiopaque fo reign body. IMPRESSION: No acute osseous pathology. Soft tissue swelling. ACT 112: Negative or not required by law. Electronically signed by: González Patel M.D. 03/01/2021 4:06 PM
--- NOTE | 2021-03-01 16:09 | XRay Report ---
XR tibia fibula LT 2V CLINICAL HISTORY: Injury with left leg pain. COMPARISON STUDY: No previous studies for comparison. TECHNIQUE: AP and lateral left lower leg views FINDINGS: Bones: There is no evidence for an acute fracture or dislocation. There is no lytic or blastic lesion . Joints: The joint spaces are maintained. The bones are in anatomic alignment. Soft tissues: There is soft tissue swelling present surrounding the lower leg and ankle. There is no radiopaque foreign body. IMPRESSION: No acute osseous pathology. Soft tissue swelling. ACT 112: Negative or not required by law. Electronically signed by: González Patel M.D. 03/01/2021 4:07 PM
--- NOTE | 2021-03-01 16:22 | CT Scan Report ---
CT cervical spine wo con CLINICAL HISTORY: Status post fall with neck pain. COMPARISON STUDY: No previous studies for comparison. CT DOSE: 1996.91 mGy.cm TECHNIQUE: Standard CT of the Cervical Spine was performed without IV contrast. A dose lowering te chnique was utilized adhering to the principles of ALARA. FINDINGS: Bones: The bones are osteopenic. There is no evidence for an acute fracture or malalignment. The heig hts of the vertebral bodies are maintained. The vertebral bodies are in anatomic alignment. The odont oid is intact. Degenerative changes are seen at the atlantoaxial articulation. Disc spaces:Moderate to marked disc space narrowing is present from C5 through C7 with endplate scler osis and osteophyte formation. Mild disc space narrowing is seen throughout the remainder of the cerv ical spine. Apophyseal joints:Extensive degenerative apophyseal joint disease present bilaterally. Soft tissues:The prevertebral soft tissues are within normal limits. IMPRESSION: Osteopenia with degenerative disc and degenerative joint disease. No acute abnormality. ACT 112: Negative or not required by law. Electronically signed by: González Patel M.D. 03/01/2021 4:20 PM
--- NOTE | 2021-03-01 16:22 | CT Scan Report ---
CT head/brain wo con CLINICAL HISTORY: Trauma Technique: Contiguous axial CT images of the head were acquired from the base of the skull to the oz andry without intravenous contrast administration. Images were viewed in brain, subdural and bone [facility]. Automated dose lowering techniques and/or adjustment according to patient size were utilized for this exam. Comparison: Comparison is made to CT head 03/11/2018 Findings: Areas of decreased attenuation are present in the periventricular and subcortical white matter bilate rally consistent with small vessel ischemic disease. Generalized cerebral atrophy with commensurate e nlargement of the ventricles, sulci, and cisterns is also present. There is no acute intracranial hem orrhage or evidence of acute territorial infarction. No shift of the midline structures, mass effect, or extra-axial abnormalities are shown. Atherosclerotic calcifications are present in the intracran ial segments of the internal carotid arteries. Imaged portions of the paranasal sinuses and mastoid air cells are clear. The orbits appear normal. There are no acute fractures of the calvaria or scalp swelling. Impression: No acute intracranial hemorrhage, no evidence of acute territorial infarction or other acute intracra nial disease process. ACT 112: Negative or not required by law. Electronically signed by: Heath Rockwell M.D. 03/01/2021 4:21 PM
--- NOTE | 2021-03-01 16:24 | CT Scan Report ---
CT thoracic spine wo con CLINICAL HISTORY: Status post fall with back pain COMPARISON STUDY: No previous studies for comparison. CT DOSE: TECHNIQUE: Standard CT of the Thoracic Spine was performed without IV contrast. A dose lowering tech nique was utilized adhering to the principles of ALARA. FINDINGS: Bones: The bones are osteopenic. Minimal old anterior wedge deformities are present involving T6, T7 and T8. There is no evidence for an acute fracture or malalignment. The heights of the remaining thor acic vertebral bodies are maintained. There is a mild dextroscoliotic curve of the thoracic spine. Th e vertebral bodies are otherwise in anatomic alignment. Disc spaces: Moderate disc space narrowing is seen throughout the thoracic spine with endplate cirrho sis and osteophyte formation. Pedicles::The pedicles are intact bilaterally. Soft tissues: The paraspinal soft tissues are within normal limits. IMPRESSION: Osteopenia and degenerative disc disease with no acute osseous pathology. ACT 112: Negative or not required by law. Electronically signed by: González Patel M.D. 03/01/2021 4:23 PM
--- NOTE | 2021-03-01 16:25 | CT Scan Report ---
CT lumbar spine wo con CLINICAL HISTORY: Trauma TECHNIQUE: Multidetector row helical CT of the lumbar spine was performed without administration of i ntravenous contrast. Coronal and sagittal reformations were obtained. Automated dose lowering techniq ues and/or adjustment according to patient size were utilized for this exam. Comparison: None available at the time of this dictation. FINDINGS: For counting purposes, the last complete intervertebral disc space is considered L5-S1. No acute fractures are identified. Degenerative changes are noted in the visualized spine. Scoliosis is seen. Surrounding soft tissues are unremarkable. IMPRESSION: Degenerative changes without evidence of acute abnormality. ACT 112: Negative or not required by law. Electronically signed by: Heath Rockwell M.D. 03/01/2021 4:24 PM
--- NOTE | 2021-03-01 16:53 | Electrocardiogram Report ---
Test Reason : Blood Pressure : / mmHG Vent. Rate : 078 BPM Atrial Rate : 127 BPM P-R Int : 000 ms QRS Dur : 074 ms QT Int : 380 ms P-R-T Axes : 000 050 -01 degrees QTc Int : 433 ms Atrial fibrillation Cannot rule out Old Anteroseptal infarct Abnormal ECG When compared with ECG of 27-OCT-2020 20:25, Atrial fibrillation has replaced Sinus rhythm Criteria for Anteroseptal infarct is now Present Confirmed by Noah Adams ([id number]) on 03/01/2021 4:53:33 PM Referred By: Confirmed By:Noah Adams
--- NOTE | 2021-03-01 17:59 | History & Physical Report ---
Date of Service March 01, 2021 Assessment & Plan (1) New onset a-fib: Plan: -Admit to telemetry -Appears A. fib may be new since November-Noted on previous discharge summary after hospitalization in [place] for COVID-pneumonia, PE and A. fib in November 2020 -Consult cardiology, follows with Dr. Adams, saw him last fall and does so every 6-month routinely -Troponin elevated at 0.06, trend x2 more sets -EKG reviewed -She missed all morning medications including metoprolol succinate 25 mg, likely adding to elevated heart rate -Start on heparin drip for anticoagulation, with fall risk, further discussion required for chronic anticoagulation (2) CAD (coronary artery disease): Plan: - hx of such, Cardiology consulted as above -Continue on Plavix, heparin drip as above -Continue beta-blockade with metoprolol, lisinopril, statin therapy (3) Dyslipidemia: Plan: -Continue statin therapy with rosuvastatin 40 mg daily (4) S/P CABG x 1: Plan: -As above (5) Hypertension: Plan: -Continue antihypertensives as above (6) Fall: Plan: -Scanned, no fractures sustained with fall, concerned that this was possibly orthostatic with her history of such, versus new A. fib causing worsening weakness -PT/OT consults -Fall precautions placed -Was given 1 L fluid in the ER, total CK = 327, no obvious rhabdo, encourage hydration po -May continue pain control with hydrocodone/acetaminophen, takes 1 tablet occasionally at home, PDMP reviewed (7) Chronic kidney disease stage 3: Plan: - Chronic, stable, follow BMP with a.m. labs - Cr. 0.76 BUN 15 on admission. (8) Hypothyroidism: Plan: -Continue levothyroxine DVT PPx: - teds, scds, Heparin drip CODE: Full code Dispo: From home, likely to remain in the hospital x 1-2 days History of Present Illness Primary Care Provider: Con Coughlin MD This is a 82 yo F with PMHx of HTN, HLD, orthostatic hypotension, CAD, aortic ectasia, CABG x 1, CKD, hypothyroidism, GERD and chronic narcotic dependence, also his of TIA many years ago. She was recently admitted to [place] in 12/09 per [facility], the discharge states she was there with Covid pneumonia, Atrial fib, acute PE, E coli UTI. She was sent to [facility] where she signed out. She was noted to be weak and short of breath as of a note from her PCP on 02/23/21. An outpatient cardiology was made but has not been seen yet. She reports around 7 pm last night she was standing inside a doorway, and just felt weak and slid down to the ground. Pt was attempting to move but wasn't able. She admits to hitting the back of her head. She denies passing out, lightheadedness or dizziness, no injury sustained to any other part of her body. This is the first time she has ever fallen. Pt notes increased swelling in both of her feet and ankles, which started last Sunday. Denies shortness of breath, cough, cp, orthopnea. Pt uses a walker this past week when she leaves her apartment, lives alone. Pt banged on the floor with a shoe and her neighbor below her heard it around 11am to noon today. Denies smoking or drinking alcohol. The patient cannot recall her previous diagnoses when she was in [facility]. She denies any history of having clots in her lungs. She has also unaware of irregular rhythm, A. fib, which was also noted on the discharge summary. Patient does follow with Dr. Adams, cardiology with [facility] every 6 months routinely. Overall it seems that she is a somewhat poor historian as she has difficulty recalling events and remembering certain specific things. Allergies Allergy/AdvReac Type Severity Reaction Status Date / Time nitroglycerin AdvReac Severe "PROJECTILE Verified 03/01/21 16:16 VOMITTING" ergotamine AdvReac Intermediate vomiting Verified 03/01/21 16:16 Home Medications Medication Instructions Recorded Confirmed Type buspirone 10 mg tablet 10 mg PO BID 01/23/18 03/01/21 History clopidogrel 75 mg tablet (Plavix) 75 mg PO QAM 01/23/18 03/01/21 History ferrous sulfate 325 mg (65 mg 325 mg PO QAM 01/23/18 03/01/21 History iron) tablet gabapentin 800 mg tablet 800 mg PO TID 01/23/18 03/01/21 History levothyroxine 100 mcg tablet 100 mcg PO DAILYBB 01/23/18 03/01/21 History (Levoxyl) lisinopril 2.5 mg tablet 2.5 mg PO QAM 01/23/18 03/01/21 History pantoprazole 40 mg tablet,delayed 40 mg PO DAILY 01/23/18 03/01/21 History release (Protonix) rosuvastatin 40 mg tablet (Crestor) 40 mg PO QAM 01/23/18 03/01/21 History multivitamin 1 tab PO QAM 11/11/18 03/01/21 History misoprostol 100 mcg tablet 100 mcg PO QID 11/17/19 03/01/21 History methocarbamol 500 mg tablet 500 mg PO TID #270 tab 05/24/20 03/01/21 Rx hydrocodone 7.5 mg-acetaminophen 1 tab PO Q6 PRN 10/22/20 03/01/21 History 325 mg tablet metoprolol succinate 25 mg 25 mg PO DAILY 10/22/20 03/01/21 History tablet,extended release 24 hr oxybutynin chloride 15 mg 15 mg PO QAM 10/22/20 03/01/21 History tablet,extended release 24 hr duloxetine 30 mg PO DAILY 03/01/21 03/01/21 History lidocaine 4 % topical patch 1 patch TOPICAL DAILY PRN 03/01/21 03/01/21 History melatonin 5 mg tablet 5 mg PO HS PRN 03/01/21 03/01/21 History ondansetron HCl 4 mg tablet 4 mg PO Q6H PRN 03/01/21 03/01/21 History Past Med/Surg History Medical History Acid reflux OCCASIONAL Arthritis CAD (coronary artery disease) Chronic back pain Depression History of blood transfusion 2012 2/2 GASTRIC ULCER History of gastric ulcer 2012 Hypothyroidism Osteoarthritis Spinal stenosis Transient ischemic attack (TIA) ~2013>REASON FOR [facility] Surgical History H/O bilateral salpingo-oophorectomy with hyter History of abdominoplasty PANNICULECTOMY History of arthroplasty of left hip History of arthroplasty of left shoulder History of arthroplasty of right hip History of cardiac cath NO STENTS History of colonoscopy History of coronary artery bypass graft 1998 (1 VESSEL) History of esophagogastroduodenoscopy (EGD) History of hysterectomy with oophorectomy History of tonsillectomy and adenoidectomy S/P epidural steroid injection S/p reverse total shoulder arthroplasty RT/LEFT Family History Father , age 74 Allergic reaction Mother , 80s CHF (congestive heart failure) Other No family history of adverse response to anesthesia Social History Smoking Status: Smoker, status unknown Second Hand Exposure: No; Hx Alcohol Use: No Hx Substance Use: No Preferred Language: Yi Communication Ability: Effective Visual Impairment: No Limitations Crust Sorter Required: No Beliefs That Will Affect Care: None Current Living Situation: Alone Current Living Situation Comment: [facility]. LIVING Feels Safe at Home: Yes Assistive Devices: Glasses and Walker Review of Systems Review of Systems: Constitutional: No fever, sweats or chills Eyes: No diplopia, no worsening or blurred vision ENT: normal hearing, no trouble swallowing Respiratory: No cough, sputum, dyspnea at rest or on exertion Cardiovascular: No chest pain, tightness or palpitations, Swelling in ankles and feet bilaterally for 1 week Abdomen: No pain, nausea, vomiting, diarrhea or constipation Musculoskeletal: No joint pain, calf pain, swelling Neurologic: + weakness, no numbness/tingling, + balance problems Psychiatric: No anxiety or depression Skin: No rash or itch Physical Exam Physical Exam: General: awake, alert, no apparent distress, + poor historian Head: Normocephalic, atraumatic ENT: PERRL, EOMI, no pharyngeal exudate, mucous membranes moist Chest: Clear to auscultation, on room air, no adventitious breath sounds Cardiac: Irregularly irregular, HR near 100, no murmur, + JVD, normal peripheral pulses, good capillary refill Abdominal: NABS x 4 quadrants, soft, nondistended, nontender to palpation, no rebound or guarding Extremities: Normal inspection, 1+ peripheral edema BLE ankles and feet, no erythema, calfs nontender to palpation Psych: Normal mood and affect Neuro: AAO x 3, strength intact bilaterally and rated 5/5, no motor deficits, speech is clear, no peripheral sensory deficits Results & Data Results & Data ([facility]) Vital Signs (Past 12 Hours) Vital Signs Temp Pulse Pulse Resp BP Pulse Ox 03/01/21 17:14 92 H 18 96 03/01/21 14:41 17 96 03/01/21 14:38 36.8 C 86 17 157/90 H 98 Laboratory Results 03/01/21 03/01/21 03/01/21 17:15 14:41 14:41 WBC 7.62 RBC 3.77 L Hgb 11.8 L Hct 37.0 MCV 98.1 MCH 31.3 MCHC 31.9 L RDW Std Deviation 49.1 H RDW Coeff of Howie 13.9 Plt Count 218 MPV 9.9 Immature Gran % (Auto) 0.3 Neut % (Auto) 69.9 Lymph % (Auto) 17.5 Sullivan % (Auto) 11.5 Eos % (Auto) 0.3 Baso % (Auto) 0.5 Neut # (Auto) 5.33 Lymph # (Auto) 1.33 Sullivan # (Auto) 0.88 H Eos # (Auto) 0.02 Baso # (Auto) 0.04 Immature Gran # (Auto) 0.02 Sodium 140 Potassium 3.8 Chloride 108 H Carbon Dioxide 26 Anion Gap 6 BUN 15 Creatinine 0.76 Est Cr Clr Drug Dosing Not Reportable Est GFR ( Amer) 83.5 Est GFR (Non-Af Amer) 72.0 BUN/Creatinine Ratio 19.7 Glucose 102 H Calcium 10.0 Total Bilirubin 1.0 AST 28 ALT 25 Alkaline Phosphatase 63 Total Creatine Kinase 327 H Troponin I 0.06 H* Total Protein 6.2 Albumin 3.5 Globulin 2.7 Albumin/Globulin Ratio 1.3 SARS-CoV-2, RNA, NAAT NEGATIVE Diagnostic Findings Cervical Spine CT 03/01/21 15:01 CT cervical spine wo con CLINICAL HISTORY: Status post fall with neck pain. COMPARISON STUDY: No previous studies for comparison. CT DOSE: 1996.91 mGy.cm TECHNIQUE: Standard CT of the Cervical Spine was performed without IV contrast. A dose lowering technique was utilized adhering to the principles of ALARA. FINDINGS: Bones: The bones are osteopenic. There is no evidence for an acute fracture or malalignment. The heights of the vertebral bodies are maintained. The vertebral bodies are in anatomic alignment. The odontoid is intact. Degenerative changes are seen at the atlantoaxial articulation. Disc spaces:Moderate to marked disc space narrowing is present from C5 through C7 with endplate sclerosis and osteophyte formation. Mild disc space narrowing is seen throughout the remainder of the cervical spine. Apophyseal joints:Extensive degenerative apophyseal joint disease present bilaterally. Soft tissues:The prevertebral soft tissues are within normal limits. IMPRESSION: Osteopenia with degenerative disc and degenerative joint disease. No acute abnormality. ACT 112: Negative or not required by law. Electronically signed by: González Patel M.D. 03/01/2021 4:[address] 03/01/21 15:01 CT head/brain wo con CLINICAL HISTORY: Trauma Technique: Contiguous axial CT images of the head were acquired from the base of the skull to the vertex without intravenous contrast administration. Images were viewed in brain, subdural and bone windows. Automated dose lowering techniques and/or adjustment according to patient size were utilized for this exam. Comparison: Comparison is made to CT head 03/11/2018 Findings: Areas of decreased attenuation are present in the periventricular and subcortical white matter bilaterally consistent with small vessel ischemic disease. Generalized cerebral atrophy with commensurate enlargement of the ventricles, sulci, and cisterns is also present. There is no acute intracranial hemorrhage or evidence of acute territorial infarction. No shift of the midline structures, mass effect, or extra-axial abnormalities are shown. Atherosclerotic calcifications are present in the intracranial segments of the internal carotid arteries. Imaged portions of the paranasal sinuses and mastoid air cells are clear. The orbits appear normal. There are no acute fractures of the calvaria or scalp swelling. Impression: No acute intracranial hemorrhage, no evidence of acute territorial infarction or other acute intracranial disease process. ACT 112: Negative or not required by law. Electronically signed by: Heath Rockwell M.D. 03/01/2021 4:21 PM Hip/Pelvis X-Ray 03/01/21 15:01 XR hip LT 2V w pelvis CLINICAL HISTORY: Left hip pain following fall. COMPARISON: Pelvis radiograph October 22, 2020. FINDINGS: Sacroiliac joints and symphysis pubis are intact. Bilateral hip arthroplasties are noted. No periprosthetic fracture is noted. Alignment is anatomic. No acute fracture is identified within the pelvis or hips. IMPRESSION: 1. No acute fracture within the pelvis or hips. 2. Status post bilateral total hip arthroplasty. Hardware intact. No periprosthetic fracture. ACT 112: Negative or not required by law. Electronically signed by: Anthony Borden M.D. 03/01/2021 4:[address] 03/01/21 15:01 CT lumbar spine wo con CLINICAL HISTORY: Trauma TECHNIQUE: Multidetector row helical CT of the lumbar spine was performed without administration of intravenous contrast. Coronal and sagittal reformations were obtained. Automated dose lowering techniques and/or adjustment according to patient size were utilized for this exam. Comparison: None available at the time of this dictation. FINDINGS: For counting purposes, the last complete intervertebral disc space is considered L5-S1. No acute fractures are identified. Degenerative changes are noted in the visualized spine. Scoliosis is seen. Surrounding soft tissues are unremarkable. IMPRESSION: Degenerative changes without evidence of acute abnormality. ACT 112: Negative or not required by law. Electronically signed by: Heath Rockwell M.D. 03/01/2021 4:[address] 03/01/21 15:01 CT thoracic spine wo con CLINICAL HISTORY: Status post fall with back pain COMPARISON STUDY: No previous studies for comparison. CT DOSE: TECHNIQUE: Standard CT of the Thoracic Spine was performed without IV contrast. A dose lowering technique was utilized adhering to the principles of ALARA. FINDINGS: Bones: The bones are osteopenic. Minimal old anterior wedge deformities are present involving T6, T7 and T8. There is no evidence for an acute fracture or malalignment. The heights of the remaining thoracic vertebral bodies are maintained. There is a mild dextroscoliotic curve of the thoracic spine. The vertebral bodies are otherwise in anatomic alignment. Disc spaces: Moderate disc space narrowing is seen throughout the thoracic spine with endplate cirrhosis and osteophyte formation. Pedicles::The pedicles are intact bilaterally. Soft tissues: The paraspinal soft tissues are within normal limits. IMPRESSION: Osteopenia and degenerative disc disease with no acute osseous pathology. ACT 112: Negative or not required by law. Electronically signed by: González Patel M.D. 03/01/2021 4:23 PM Ankle X-Ray 03/01/21 15:02 XR ankle LT min 3V routine CLINICAL HISTORY: Injury with left leg pain. COMPARISON STUDY: No previous studies for comparison. TECHNIQUE: 3 left ankle views FINDINGS: Bones: There is no evidence for an acute fracture or dislocation. There is no lytic or blastic lesion. Joints: The joint spaces are maintained. The bones are in anatomic alignment. Soft tissues: There is moderate soft tissue swelling surrounding the ankle. There is no radiopaque foreign body. IMPRESSION: No acute osseous pathology. Soft tissue swelling. ACT 112: Negative or not required by law. Electronically signed by: González Patel M.D. 03/01/2021 4:06 PM Tibia/Fibula X-Ray 03/01/21 15:02 XR tibia fibula LT 2V CLINICAL HISTORY: Injury with left leg pain. COMPARISON STUDY: No previous studies for comparison. TECHNIQUE: AP and lateral left lower leg views FINDINGS: Bones: There is no evidence for an acute fracture or dislocation. There is no lytic or blastic lesion. Joints: The joint spaces are maintained. The bones are in anatomic alignment. Soft tissues: There is soft tissue swelling present surrounding the lower leg and ankle. There is no radiopaque foreign body. IMPRESSION: No acute osseous pathology. Soft tissue swelling. ACT 112: Negative or not required by law. Electronically signed by: González Patel M.D. 03/01/2021 4:07 PM ECG Additional Comments: Test Reason : Blood Pressure : / mmHG Vent. Rate : 078 BPM Atrial Rate : 127 BPM P-R Int : 000 ms QRS Dur : 074 ms QT Int : 380 ms P-R-T Axes : 000 050 -01 degrees QTc Int : 433 ms Atrial fibrillation Cannot rule out Old Anteroseptal infarct Abnormal ECG When compared with ECG of 27-OCT-2020 20:25, Atrial fibrillation has replaced Sinus rhythm Criteria for Anteroseptal infarct is now Present Code Status & VTE Plan Code Status Full code - Discussed with the patient at bedside VTE Prophylaxis Plan VTE Prophylaxis will be ordered: Yes Supervising Physician Co-Signing Physician Notes Patient seen and examined. History and Physical exam as detailed by Valeria Bolden PA-C Notable for fall at home. No loss of consciousness Leg swelling reported over the past week. 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 transplanted heart: [place] heart Qualified Code(s): I25.10 - Atherosclerotic heart disease of [place] coronary artery without angina pectoris (2) Hypothyroidism Hypothyroidism type: unspecified Qualified Code(s): E03.9 - Hypothyroidism, unspecified (3) Hypertension Hypertension type: essential hypertension Qualified Code(s): I10 - Essential (primary) hypertension
[2021-03-01] MEDS ORDERED: Heparin IV Adult Wt-Based Standard *NO* Bolus Protocol ONE (18:25)
[2021-03-01] MEDS: HEPARIN SODIUM/DEXTROSE 25,000 UNITS/500 ML BAG IV SCH (19:28)
[2021-03-01] MEDS ORDERED: ONDANSETRON INJ 2 MG/ML 2 ML VIAL IV PRN (20:56)
[2021-03-01] MEDS ORDERED: LIDOCAINE 5% 1 PATCH TD PRN (21:25)
[2021-03-01] MEDS: busPIRone 5 MG TAB PO SCH (23:08)
[2021-03-01] MEDS: METHOCARBAMOL 500 MG TABLET PO SCH (23:09)
[2021-03-01] MEDS: GABAPENTIN 800 MG TAB PO SCH (23:09)
[2021-03-01] MEDS: miSOPROStoL 100 MCG TAB PO SCH (23:10)
[2021-03-02] MEDS: HYDROCODONE/ACETAMINOPHEN 7.5/325MG TAB PO PRN (00:14)
[2021-03-02] MEDS: MELATONIN 3 MG TAB PO PRN ×2 (00:14→22:09)
[2021-03-02 04:17] LABS: Hemoglobin 10.9 g/dL (12.0-16.0); Mean Corpuscular Hemoglobin 31.5 pg (25-34); Mean Corpuscular Hgb Conc 32.1 g/dL (32-36); Mean Corpuscular Volume 98.3 fL (80-100); Mean Platelet Volume 9.7 fL (7.4-10.4); Platelet Count 194 K/uL (130-400); RDW Coefficient of Variation 13.9 % (11.5-14.5); RDW Standard Deviation 49.7 fL (36.4-46.3); Red Blood Count 3.46 M/uL (4.2-5.4); White Blood Count 5.71 K/uL (4.8-10.8)
[2021-03-02 04:47] LABS: Albumin Globulin Ratio 1.5 (0.9-2); Albumin Level 2.9 gm/dl (3.4-5.0); BUN Creatinine Ratio 18.1 (10-20); Bilirubin,Total 0.8 mg/dl (0.2-1.0); Calcium 8.8 mg/dl (8.5-10.1); Creatinine Clr Calc Pharmacy 49.1 ml/min; Est GFR (African American) 89.1 ml/min; Est GFR (Non-African American) 76.9 ml/min; Potassium 3.5 mmol/L (3.5-5.1); Total Protein 4.9 gm/dl (6.0-8.3)
[2021-03-02] MEDS: LEVOTHYROXINE SODIUM 100 MCG TABLET PO SCH (05:38)
[2021-03-02 06:04] LABS: Estimated Average Glucose 111 mg/dl; Hemoglobin A1C 5.5 % (4.5-5.6)
[2021-03-02 06:11] LABS: Partial Thromboplastin Ratio 4.8
[2021-03-02 06:18] LABS: Partial Thromboplastin Time 125.3 Seconds (21.0-31.0)
[2021-03-02] MEDS: busPIRone 5 MG TAB PO SCH ×2 (08:37→20:50)
[2021-03-02] MEDS: PANTOprazole 40 MG TAB PO SCH (08:38)
[2021-03-02] MEDS: METOPROLOL SUCC 25MG EXT REL TAB PO SCH (08:39)
[2021-03-02] MEDS: MULTIVITAMIN TAB PO SCH (08:39)
[2021-03-02] MEDS: ACETAMINOPHEN 500 MG TAB PO SCH ×3 (08:40→20:50)
[2021-03-02] MEDS: lisinopril 2.5 MG TAB PO SCH (08:45)
[2021-03-02] MEDS: DULoxetine HCL 30 MG CAP PO SCH (08:46)
[2021-03-02] MEDS: miSOPROStoL 100 MCG TAB PO SCH ×4 (08:46→20:50)
[2021-03-02] MEDS: ROSUVASTATIN CALCIUM 20 MG TAB PO SCH (08:46)
[2021-03-02] MEDS: FERROUS SULFATE 325 MG TAB PO SCH (08:47)
[2021-03-02] MEDS: GABAPENTIN 800 MG TAB PO SCH ×3 (08:47→20:51)
[2021-03-02] MEDS: METHOCARBAMOL 500 MG TABLET PO SCH ×3 (08:47→20:51)
[2021-03-02] MEDS: OXYBUTYNIN CHLORIDE XL 5 MG TABCR PO SCH (08:48)
[2021-03-02] MEDS ORDERED: CLOPIDOGREL BISULFATE 75 MG TAB PO SCH (09:00)
[2021-03-02] MEDS ORDERED: INFLUENZA VACCINE HIGH DOSE PF 65+ 0.7 ML SYR IM ONE (09:00)
--- NOTE | 2021-03-02 11:09 | XCELERA ---
[id number]
--- NOTE | 2021-03-02 13:16 | Cardiology Consultation ---
Date of Consultation March 02, 2021 Assessment & Plan (1) New onset a-fib: (2) S/P CABG x 1: (3) Mild aortic stenosis: (4) Moderate mitral regurgitation: 82-year-old woman well-known to me from outpatient management of her longstanding coronary artery disease presents with paroxysmal atrial fibrillation of recent onset. Her rate seems reasonably well controlled at rest on low-dose metoprolol succinate (25 mg daily), however it would be worth ambulating her to see if her ventricular rate exceeds 110 bpm, if so would increase the metoprolol succinate to 50 mg daily. Her [id number] score is at least 4 (age x 2, gender, hypertension), giving her significant risk of thromboembolism. Despite her recent fall, feel that the benefit of anticoagulation would exceed risk at this time. If she has frequent falls, could reevaluate. Given weight in the 60 kg range and age greater than 80 in the context of falls, would recommend anticoagulating with reduced dose apixaban 2.5 mg daily. Would discontinue clopidogrel to reduce risk of bleeding when apixaban is initiated (particularly in the context of falls). Her mildly elevated troponin curve is flat (no peak and decay) and she has not noted chest discomfort, no evidence of ongoing significant myocardial ischemia. Blood pressure is currently normotensive but was mildly hypertensive, other than potentially increasing metoprolol no immediate intervention needed, this could be reevaluated as an outpatient in a less stressful environment. Would be glad to see the patient back in the next several weeks for an office visit to discuss her newly diagnosed atrial fibrillation and its management further. History of Present Illness Reason for Consultation: New onset Afib RVR with fall Requesting Physician: Ashleigh Balderas MD Attending Physician: Ashleigh Balderas MD History of Present Illness 82-year-old woman with CAD (single vessel SANDOVAL to LAD CABG 1998), minor CVA 2012, hypertension, and dyslipidemia who was admitted yesterday with paroxysmal atrial fibrillation. At the time of her last office visit with me May 2020 she had no history of atrial fibrillation, however she was hospitalized in [place] for COVID- pneumonia complicated by a pulmonary embolism and apparently had at least transient atrial fibrillation at that time. Details of this hospitalization were not available. In recent weeks, the patient noted increasing dyspnea on exertion and new onset leg edema. She denied chest pain, subjective palpitations, presyncope, or syncope. Yesterday, she felt weak and slumped to the floor but did not lose consciousness. She was alarmed since she had not fallen before, she presented to the ER where she was found to have new onset atrial fibrillation and she was admitted. This morning, she felt well and denied any current symptoms. However, she has not been out of bed ambulating at this point. Telemetry shows atrial fibrillation with rate predominantly in the 70s, occasionally in the 100-110 bpm range with activity. Allergies Allergy/AdvReac Type Severity Reaction Status Date / Time nitroglycerin AdvReac Severe "PROJECTILE Verified 03/01/21 16:16 VOMITTING" ergotamine AdvReac Intermediate vomiting Verified 03/01/21 16:16 Home Medications Medication Instructions Recorded Confirmed Type buspirone 10 mg tablet 10 mg PO BID 01/23/18 03/01/21 History clopidogrel 75 mg tablet (Plavix) 75 mg PO QAM 01/23/18 03/01/21 History ferrous sulfate 325 mg (65 mg 325 mg PO QAM 01/23/18 03/01/21 History iron) tablet gabapentin 800 mg tablet 800 mg PO TID 01/23/18 03/01/21 History levothyroxine 100 mcg tablet 100 mcg PO DAILYBB 01/23/18 03/01/21 History (Levoxyl) lisinopril 2.5 mg tablet 2.5 mg PO QAM 01/23/18 03/01/21 History pantoprazole 40 mg tablet,delayed 40 mg PO DAILY 01/23/18 03/01/21 History release (Protonix) rosuvastatin 40 mg tablet (Crestor) 40 mg PO QAM 01/23/18 03/01/21 History multivitamin 1 tab PO QAM 11/11/18 03/01/21 History misoprostol 100 mcg tablet 100 mcg PO QID 11/17/19 03/01/21 History methocarbamol 500 mg tablet 500 mg PO TID #270 tab 05/24/20 03/01/21 Rx hydrocodone 7.5 mg-acetaminophen 1 tab PO Q6 PRN 10/22/20 03/01/21 History 325 mg tablet metoprolol succinate 25 mg 25 mg PO DAILY 10/22/20 03/01/21 History tablet,extended release 24 hr oxybutynin chloride 15 mg 15 mg PO QAM 10/22/20 03/01/21 History tablet,extended release 24 hr duloxetine 30 mg PO DAILY 03/01/21 03/01/21 History lidocaine 4 % topical patch 1 patch TOPICAL DAILY PRN 03/01/21 03/01/21 History melatonin 5 mg tablet 5 mg PO HS PRN 03/01/21 03/01/21 History ondansetron HCl 4 mg tablet 4 mg PO Q6H PRN 03/01/21 03/01/21 History apixaban 2.5 mg tablet (Eliquis) 2.5 mg PO BID #60 tab 03/02/21 Rx Patient History Medical History Acid reflux OCCASIONAL Arthritis CAD (coronary artery disease) Chronic back pain Depression History of blood transfusion 20122 GASTRIC ULCER History of gastric ulcer 2012 Osteoarthritis Spinal stenosis Transient ischemic attack (TIA) ~2013>REASON FOR PLAVIX Surgical History H/O bilateral salpingo-oophorectomy with hyter History of abdominoplasty PANNICULECTOMY History of arthroplasty of left hip History of arthroplasty of left shoulder History of arthroplasty of right hip History of cardiac cath NO STENTS History of colonoscopy History of coronary artery bypass graft 1998 (1 VESSEL) History of esophagogastroduodenoscopy (EGD) History of hysterectomy with oophorectomy History of tonsillectomy and adenoidectomy S/P epidural steroid injection S/p reverse total shoulder arthroplasty RT/LEFT Family History Father , age 74 Allergic reaction Mother , 80s CHF (congestive heart failure) Other No family history of adverse response to anesthesia Social History Smoking Status: Never smoker Second Hand Exposure: No; Hx Alcohol Use: No Hx Substance Use: No Preferred Language: Afghan Communication Ability: Effective Visual Impairment: No Limitations Bottle Gauger Required: No Beliefs That Will Affect Care: None marital status: Single Current Living Situation: Alone Current Living Situation Comment: [facility] How many Children do You have: 0 Other Information That Helps Us Care for You: No Feels Safe at Home: Yes Safety Concerns: Feels Safe At This Time Assistive Devices: Walker Physical Exam Physical Exam: Thin elderly white female appears comfortable (eating lunch). Normotensive. Pulse 76 and irregular. Skin: No unusual lesions or ecchymosis. HEENT: Unremarkable. Neck: Jugular venous pulse at the clavicle pulse at 90, carotid with bilateral transmitted murmur. Lungs: Clear and equal breath sounds bilaterally. No wheezing or crackles. Cardiac: irregular rhythm with normal S1 and moderately diminished A2. 3/6 systolic ejection murmur at the right upper sternal border radiating to the carotids, left sternal border, and axilla. No diastolic murmur or distinct gallop. Abdomen: Benign. Extremities: Nontender with trace pretibial edema. Intact peripheral pulses. Neurologic: Normal affect, nonfocal Results & Data ([facility]) Vital Signs (Past 12 Hours) Vital Signs Temp Pulse Pulse Resp BP Pulse Ox 03/02/21 11:50 97.9 F 76 20 138/77 95 03/02/21 08:00 75 03/02/21 07:57 97.7 F 84 20 142/61 H 96 03/02/21 02:52 98.4 F 74 16 139/76 98 Laboratory Results Serial troponins were 0.06, 0.06, and 0.05. Normal electrolytes with potassium 3.5, BUN 13, creatinine 0.72. Diagnostic Findings ECG on admission showed atrial fibrillation with ventricular rate of 78 bpm, possible old anteroseptal infarct (Q waves in V2 and V3). Compared with 10/27/2020 ECG, atrial fibrillation was new and poor our progression was now noted. Echocardiogram today showed EF 60 to 65% with mild LVH, mild AI/AI/moderate MR/TR, mild pulmonary hypertension, mildly dilated inferior vena cava. Compared with 10/08/2019 study, rhythm is no longer sinus, otherwise no significant gomez ge. Multiple radiologic studies including ankle/leg x-rays, pelvic x-rays, CT of the head, C-spine, thoracic spine, and lumbar spine, all showed no evidence of fracture. PG Care Time/CCT Total # of Minutes Spent Total Time Spent with Patient: Total time spent is greater than 50% in coordination of care (as documented) at patient's floor/unit and/or counseling patient: Coding Level of Care Code 26856 Inpt Consult Level 4 Diagnoses New onset a-fib I48.91 S/P CABG x 1 Z95.1 Mild aortic stenosis I35.0 Moderate mitral regurgitation I34.0
[2021-03-02 14:42] LABS: Partial Thromboplastin Time 51.8 Seconds (21.0-31.0)
--- NOTE | 2021-03-02 23:43 | Hospitalist Progress Note ---
Date of Service March 02, 2021 Assessment & Plan (1) New onset a-fib: Plan: Present on admission with weakness and SOB and found to be in Afib She was started on Heparin drip Troponin on admission 0.06->0.06-> 0.05 Telemonitor showed Afib with Rate control ECHO showed LV systolic function is normal. LV wall motion is normal with EF 60- 65% Continue metoprolol 25mg daily Case discussed with cardiology that recommended to start on anticoagulant witgh eliquis 2.5 mg BID, Will d/c Plavix Continue monitor closely (2) Fall: Plan: Scanned, no fractures sustained with fall, concerned that this was possibly orthostatic with her history of such, versus new A. fib causing worsening weakness CT head/cervical/lumbar/Thoracic spine are negative Continue PT/OT eval Fall precautions (3) S/P CABG x 1: (4) CAD (coronary artery disease): Plan: Denies any chest pain Currently on heparin drip Continue beta-blockade with metoprolol, lisinopril, statin therapy Will d/c Plavix since starting on Eliquis (5) Dyslipidemia: Plan: Continue statin therapy with rosuvastatin 40 mg daily (6) Hypertension: Plan: BP stable (7) Chronic kidney disease stage 3: Plan: - Chronic, stable, follow BMP with a.m. labs - Cr. 0.76 BUN 15 on admission. (8) Hypothyroidism: Plan: Continue levothyroxine DVT PPx: - teds, scds, Heparin drip CODE: Full code Dispo: Possible discharge home tomorrow Admission and Anticipated Discharge Date Admission Date: March 01, 2021 Subjective Pt was seen and examined for follow up of weakness Pt said that he feels fine much better He said that her breathing is stable She walked with therapy today Her HR has been stable Denies any chest pain, palpitation, dizziness and SOB Review of Systems Review of Systems: All systems reviewed & are unremarkable except as noted in Subjective Physical Exam Physical Exam: General- No acute distress Head- atraumatic Eyes- PERRL, EOMI, ENT- oropharynx clear Neck- supple, no JVD Lungs- clear to auscultation Heart- irregular rhythm; no murmur Abdomen- normal bowel sounds, soft, nontender Extremities- no calf tenderness Neuro- alert, oriented x 3; PERRL, EOMI; no facial palsy; no dysarthria Skin- warm & dry Results & Data Results & Data ([facility]) Vital Signs (Past 12 Hours) Vital Signs Temp Pulse Pulse Resp BP Pulse Ox 03/02/21 23:07 36.9 C 72 19 121/75 95 03/02/21 19:05 36.8 C 72 16 102/64 97 03/02/21 16:00 36.9 C 71 74 20 129/80 97 03/02/21 11:50 36.6 C 76 20 138/77 95 (1) CAD (coronary artery disease) Associated angina: without angina Coronary Disease-Associated Artery/Lesion type: [place] artery [place] vs. transplanted heart: [place] heart Qualified Code(s): I25.10 - Atherosclerotic heart disease of [place] coronary artery without angina pectoris (2) Hypothyroidism Hypothyroidism type: unspecified Qualified Code(s): E03.9 - Hypothyroidism, unspecified (3) Hypertension Hypertension type: essential hypertension Qualified Code(s): I10 - Essential (primary) hypertension
[2021-03-03 06:11] LABS: Hematocrit (blood only) 36.5 % (37-47); Hemoglobin 11.6 g/dL (12.0-16.0); Mean Corpuscular Hgb Conc 31.8 g/dL (32-36); Mean Corpuscular Volume 97.6 fL (80-100); Mean Platelet Volume 9.6 fL (7.4-10.4); Platelet Count 188 K/uL (130-400); RDW Coefficient of Variation 13.8 % (11.5-14.5); RDW Standard Deviation 49.3 fL (36.4-46.3); Red Blood Count 3.74 M/uL (4.2-5.4); White Blood Count 5.84 K/uL (4.8-10.8)
[2021-03-03 06:37] LABS: Partial Thromboplastin Ratio 2.3
[2021-03-03] MEDS: HEPARIN SODIUM/DEXTROSE 25,000 UNITS/500 ML BAG IV SCH (06:44)
[2021-03-03] MEDS: LEVOTHYROXINE SODIUM 100 MCG TABLET PO SCH (06:46)
[2021-03-03 06:48] LABS: Albumin Globulin Ratio 1.2 (0.9-2); Albumin Level 3.1 gm/dl (3.4-5.0); BUN Creatinine Ratio 18.5 (10-20); Bilirubin,Total 0.5 mg/dl (0.2-1.0); Calcium 9.4 mg/dl (8.5-10.1); Creatinine Clr Calc Pharmacy 38.4 ml/min; Est GFR (African American) 66.3 ml/min; Est GFR (Non-African American) 57.2 ml/min; Globulin 2.5 gm/dl (2.5-4.0); Partial Thromboplastin Time 60.4 Seconds (21.0-31.0); Potassium 4.3 mmol/L (3.5-5.1); Total Protein 5.6 gm/dl (6.0-8.3)
[2021-03-03] MEDS: METHOCARBAMOL 500 MG TABLET PO SCH ×3 (08:39→20:31)
[2021-03-03] MEDS: lisinopril 2.5 MG TAB PO SCH (08:40)
[2021-03-03] MEDS: MULTIVITAMIN TAB PO SCH (08:40)
[2021-03-03] MEDS: PANTOprazole 40 MG TAB PO SCH (08:40)
[2021-03-03] MEDS: METOPROLOL SUCC 25MG EXT REL TAB PO SCH (08:40)
[2021-03-03] MEDS: miSOPROStoL 100 MCG TAB PO SCH ×4 (08:40→20:31)
[2021-03-03] MEDS: busPIRone 5 MG TAB PO SCH ×2 (08:40→20:31)
[2021-03-03] MEDS: ROSUVASTATIN CALCIUM 20 MG TAB PO SCH (08:40)
[2021-03-03] MEDS: FERROUS SULFATE 325 MG TAB PO SCH (08:40)
[2021-03-03] MEDS: OXYBUTYNIN CHLORIDE XL 5 MG TABCR PO SCH (08:40)
[2021-03-03] MEDS: GABAPENTIN 800 MG TAB PO SCH ×3 (08:40→21:00)
[2021-03-03] MEDS: DULoxetine HCL 30 MG CAP PO SCH (08:41)
[2021-03-03] MEDS: ACETAMINOPHEN 500 MG TAB PO SCH ×3 (08:46→20:31)
[2021-03-03] MEDS: APIXABAN 2.5 MG TAB PO SCH ×2 (10:07→20:31)
--- NOTE | 2021-03-03 12:27 | Cardiology Progress Note ---
Date of Service March 03, 2021 Assessment & Plan (1) New onset a-fib: (2) S/P CABG x 1: (3) Mild aortic stenosis: (4) Moderate mitral regurgitation: Plan: Patient is doing well with good rate control metoprolol succinate 25 mg twice daily. No bleeding problems on reduced dose apixaban 2.5 mg twice daily. Clopidogrel discontinued upon initiation of apixaban. No evidence of ongoing myocardial ischemia. Cardiology follow-up in my office in 2 to 3 weeks. Case discussed with Dr. Balderas. Admission and Anticipated Discharge Date Admission Date: March 01, 2021 Subjective No complaints, feels well today. No chest pain, dyspnea, or palpitations. Telemetry showed atrial fibrillation with controlled ventricular response (70- 100 bpm). Physical Exam Physical Exam: No distress. Normotensive. Pulse 68 bpm and irregular. Skin: No unusual lesions or ecchymosis. HEENT: Unremarkable. Neck: Jugular venous pulse at the clavicle pulse at 90, carotid with bilateral transmitted murmur. Lungs: Clear and equal breath sounds bilaterally. No wheezing or crackles. Cardiac: irregular rhythm with normal S1 and moderately diminished A2. 3/6 systolic ejection murmur at the right upper sternal border radiating to the carotids, left sternal border, and axilla. No diastolic murmur or distinct gallop. Abdomen: Benign. Extremities: Nontender with trace pretibial edema. Intact peripheral pulses. Neurologic: Normal affect, nonfocal Results & Data ([facility]) Vital Signs (Past 12 Hours) Vital Signs Temp Pulse Resp BP Pulse Ox 03/03/21 10:48 97.3 F L 60 17 112/65 96 03/03/21 07:38 97.9 F 66 16 106/69 96 03/03/21 03:33 98.1 F 79 18 131/82 98 Laboratory Results Normal electrolytes, BUN 17, creatinine 0.92. PG Care Time/CCT Total # of Minutes Spent Total Time Spent with Patient: Total time spent is greater than 50% in coordination of care (as documented) at patient's floor/unit and/or counseling patient: Coding Level of Care Code 93989 Subseq Hosp Care Lvl 3 Diagnoses New onset a-fib I48.91 S/P CABG x 1 Z95.1 Mild aortic stenosis I35.0 Moderate mitral regurgitation I34.0
[2021-03-03] MEDS: HYDROCODONE/ACETAMINOPHEN 7.5/325MG TAB PO PRN ×2 (13:16→20:33)
--- NOTE | 2021-03-03 16:03 | Hospitalist Progress Note ---
Date of Service March 03, 2021 Assessment & Plan (1) New onset a-fib: Plan: Present on admission with weakness and SOB and found to be in Afib She was started on Heparin drip Troponin on admission 0.06->0.06-> 0.05 Telemonitor showed Afib with Rate control ECHO showed LV systolic function is normal. LV wall motion is normal with EF 60- 65% Continue metoprolol 25mg daily Case discussed with cardiology that recommended to start on anticoagulant witgh eliquis 2.5 mg BID, Will d/c Plavix Will continue Eliquis 2.5 mg BID Cardiology recommended to start on a thiazide diuretic 25mg 2x week Continue monitor closely (2) Elevated troponin: Plan: Possible demand ischemia due to Afib Troponin on admission 0.06->0.06-> 0.05 Denies any chest pain ECHO showed LV systolic function is normal. LV wall motion is normal with EF 60- 65% Plavix changed to Eliquis 2.5 mg BID (3) Fall: Plan: Scanned, no fractures sustained with fall, concerned that this was possibly orthostatic with her history of such, versus new A. fib causing worsening weakness CT head/cervical/lumbar/Thoracic spine are negative Continue PT/OT eval Fall precautions (4) S/P CABG x 1: (5) CAD (coronary artery disease): Plan: Denies any chest pain Currently on heparin drip Continue beta-blockade with metoprolol, lisinopril, statin therapy Will d/c Plavix since starting on Eliquis (6) Dyslipidemia: Plan: Continue statin therapy with rosuvastatin 40 mg daily (7) Hypertension: Plan: BP stable (8) Chronic kidney disease stage 3: Plan: - Chronic, stable, follow BMP with a.m. labs - Cr. 0.76 BUN 15 on admission. (9) Hypothyroidism: Plan: Continue levothyroxine DVT PPx: - teds, scds, Heparin drip CODE: Full code Dispo: Possible discharge home today, but pt is not comfortable to go home today Admission and Anticipated Discharge Date Admission Date: March 01, 2021 Subjective Pt was seen and examined for follow up of weakness Sitting in chair with no acute distress She said that she had 2 accidents with the urine last night He said that her breathing is stable She walked with therapy today Her HR has been stable She is very anxious to go home because she lives alone Denies any chest pain, palpitation, dizziness and SOB Review of Systems Review of Systems: All systems reviewed & are unremarkable except as noted in Subjective Physical Exam Physical Exam: General- No acute distress Head- atraumatic Eyes- PERRL, EOMI, ENT- oropharynx clear Neck- supple, no JVD Lungs- clear to auscultation Heart- irregular rhythm; no murmur Abdomen- normal bowel sounds, soft, nontender Extremities- no calf tenderness Neuro- alert, oriented x 3; PERRL, EOMI; no facial palsy; no dysarthria Skin- warm & dry Results & Data Results & Data ([facility]) Vital Signs (Past 12 Hours) Vital Signs Temp Pulse Pulse Resp BP Pulse Ox Pulse Ox 03/03/21 15:18 36.6 C 69 19 104/69 94 03/03/21 10:48 36.3 C L 60 17 112/65 96 03/03/21 08:10 67 03/03/21 08:00 96 03/03/21 07:38 36.6 C 66 16 106/69 96 (1) CAD (coronary artery disease) Associated angina: without angina Coronary Disease-Associated Artery/Lesion type: [place] artery [place] vs. transplanted heart: [place] heart Qualified Code(s): I25.10 - Atherosclerotic heart disease of [place] coronary artery without angina pectoris (2) Hypothyroidism Hypothyroidism type: unspecified Qualified Code(s): E03.9 - Hypothyroidism, unspecified (3) Hypertension Hypertension type: essential hypertension Qualified Code(s): I10 - Essential (primary) hypertension
[2021-03-03] MEDS: MELATONIN 3 MG TAB PO PRN (22:16)
[2021-03-04 05:40] LABS: Hematocrit (blood only) 32.9 % (37-47); Hemoglobin 10.3 g/dL (12.0-16.0); Mean Corpuscular Hemoglobin 31.4 pg (25-34); Mean Corpuscular Hgb Conc 31.3 g/dL (32-36); Mean Corpuscular Volume 100.3 fL (80-100); Mean Platelet Volume 9.6 fL (7.4-10.4); Platelet Count 169 K/uL (130-400); RDW Coefficient of Variation 13.8 % (11.5-14.5); RDW Standard Deviation 50.3 fL (36.4-46.3); Red Blood Count 3.28 M/uL (4.2-5.4); White Blood Count 4.88 K/uL (4.8-10.8)
[2021-03-04] MEDS: LEVOTHYROXINE SODIUM 100 MCG TABLET PO SCH (05:59)
[2021-03-04 06:00] LABS: Albumin Globulin Ratio 1.3 (0.9-2); BUN Creatinine Ratio 18.4 (10-20); Bilirubin,Total 0.3 mg/dl (0.2-1.0); Calcium 9.1 mg/dl (8.5-10.1); Est GFR (African American) 51.1 ml/min; Est GFR (Non-African American) 44.1 ml/min; Globulin 2.3 gm/dl (2.5-4.0); Potassium 4.4 mmol/L (3.5-5.1); Total Protein 5.3 gm/dl (6.0-8.3)
[2021-03-04] MEDS: miSOPROStoL 100 MCG TAB PO SCH ×2 (07:41→12:19)
[2021-03-04] MEDS: DULoxetine HCL 30 MG CAP PO SCH (07:41)
[2021-03-04] MEDS: lisinopril 2.5 MG TAB PO SCH (07:42)
[2021-03-04] MEDS: OXYBUTYNIN CHLORIDE XL 5 MG TABCR PO SCH (07:42)
[2021-03-04] MEDS: METOPROLOL SUCC 25MG EXT REL TAB PO SCH (07:42)
[2021-03-04] MEDS: FERROUS SULFATE 325 MG TAB PO SCH (07:42)
[2021-03-04] MEDS: ROSUVASTATIN CALCIUM 20 MG TAB PO SCH (07:42)
[2021-03-04] MEDS: MULTIVITAMIN TAB PO SCH (07:42)
[2021-03-04] MEDS: PANTOprazole 40 MG TAB PO SCH (07:42)
[2021-03-04] MEDS: APIXABAN 2.5 MG TAB PO SCH (07:43)
[2021-03-04] MEDS: METHOCARBAMOL 500 MG TABLET PO SCH ×2 (07:43→13:35)
[2021-03-04] MEDS: ACETAMINOPHEN 500 MG TAB PO SCH ×2 (08:53→13:35)
[2021-03-04] MEDS: GABAPENTIN 800 MG TAB PO SCH ×2 (08:53→13:35)
[2021-03-04] MEDS: busPIRone 5 MG TAB PO SCH (08:53)
--- NOTE | 2021-03-17 08:48 | Discharge Summary ---
Date of Service March 04, 2021 Admission HPI Per Admitting Provider This is a 82 yo F with PMHx of HTN, HLD, orthostatic hypotension, CAD, aortic ectasia, CABG x 1, CKD, hypothyroidism, GERD and chronic narcotic dependence, also his of TIA many years ago. She was recently admitted to [facility] in 12/09 per [facility], the discharge states she was there with Covid pneumonia, Atrial fib, acute PE, E coli UTI. She was sent to [facility] where she signed out. She was noted to be weak and short of breath as of a note from her PCP on 02/23/21. An outpatient cardiology was made but has not been seen yet. She reports around 7 pm last night she was standing inside a doorway, and just felt weak and slid down to the ground. Pt was attempting to move but wasn't able. She admits to hitting the back of her head. She denies passing out, lightheadedness or dizziness, no injury sustained to any other part of her body. This is the first time she has ever fallen. Pt notes increased swelling in both of her feet and ankles, which started last Sunday. Denies shortness of breath, cough, cp, orthopnea. Pt uses a walker this past week when she leaves her apartment, lives alone. Pt banged on the floor with a shoe and her neighbor below her heard it around 11am to noon today. Denies smoking or drinking alcohol. The patient cannot recall her previous diagnoses when she was in [facility]. She denies any history of having clots in her lungs. She has also unaware of irregular rhythm, A. fib, which was also noted on the discharge summary. Patient does follow with Dr. Adams, cardiology with [facility] every 6 months routinely. Overall it seems that she is a somewhat poor historian as she has difficulty recalling events and remembering certain specific things. Admission Exam Per Admitting Provider General: awake, alert, no apparent distress, + poor historian Head: Normocephalic, atraumatic ENT: PERRL, EOMI, no pharyngeal exudate, mucous membranes moist Chest: Clear to auscultation, on room air, no adventitious breath sounds Cardiac: Irregularly irregular, HR near 100, no murmur, + JVD, normal peripheral pulses, good capillary refill Abdominal: NABS x 4 quadrants, soft, nondistended, nontender to palpation, no rebound or guarding Extremities: Normal inspection, 1+ peripheral edema BLE ankles and feet, no erythema, calfs nontender to palpation Psych: Normal mood and affect Neuro: AAO x 3, strength intact bilaterally and rated 5/5, no motor deficits, speech is clear, no peripheral sensory deficits Principal Diagnosis New onset a-fib: Elevated troponin: Fall: CAD (coronary artery disease): Dyslipidemia: Hypertension: Chronic kidney disease stage 3: Hypothyroidism: Discharge Exam General- No acute distress Head- atraumatic Eyes- PERRL, EOMI, ENT- oropharynx clear Neck- supple, no JVD Lungs- clear to auscultation Heart- irregular rhythm; no murmur Abdomen- normal bowel sounds, soft, nontender Extremities- no calf tenderness Neuro- alert, oriented x 3; PERRL, EOMI; no facial palsy; no dysarthria Skin- warm & dry Discharge Data Allergies Allergy/AdvReac Type Severity Reaction Status Date / Time nitroglycerin AdvReac Severe "PROJECTILE Verified 03/01/21 16:16 VOMITTING" ergotamine AdvReac Intermediate vomiting Verified 03/01/21 16:16 Consultations 03/01/21 17:46 ED Decision to Admit Stat 03/01/21 20:56 Consult Cardiology Routine Ordered Studies 03/01/21 15:01 CT cervical spine wo con Stat CT head/brain wo con Stat CT lumbar spine wo con Stat CT thoracic spine wo con Stat XR tibia fibula LT 2V CLINICAL HISTORY: Injury with left leg pain. COMPARISON STUDY: No previous studies for comparison. TECHNIQUE: AP and lateral left lower leg views FINDINGS: Bones: There is no evidence for an acute fracture or dislocation. There is no lytic or blastic lesion. Joints: The joint spaces are maintained. The bones are in anatomic alignment. Soft tissues: There is soft tissue swelling present surrounding the lower leg and ankle. There is no radiopaque foreign body. IMPRESSION: No acute osseous pathology. Soft tissue swelling. ACT 112: Negative or not required by law. Electronically signed by: González Patel M.D. 03/01/2021 4:07 PM Dictated:03/01/21 1606 Transcribed: 03/01/21 1606 XR ankle LT min 3V routine CLINICAL HISTORY: Injury with left leg pain. COMPARISON STUDY: No previous studies for comparison. TECHNIQUE: 3 left ankle views FINDINGS: Bones: There is no evidence for an acute fracture or dislocation. There is no lytic or blastic lesion. Joints: The joint spaces are maintained. The bones are in anatomic alignment. Soft tissues: There is moderate soft tissue swelling surrounding the ankle. There is no radiopaque foreign body. IMPRESSION: No acute osseous pathology. Soft tissue swelling. ACT 112: Negative or not required by law. Electronically signed by: González Patel M.D. 03/01/2021 4:06 PM Dictated:03/01/21 1605 Transcribed: 03/01/[address] thoracic spine wo con CLINICAL HISTORY: Status post fall with back pain COMPARISON STUDY: No previous studies for comparison. CT DOSE: TECHNIQUE: Standard CT of the Thoracic Spine was performed without IV contrast. A dose lowering technique was utilized adhering to the principles of ALARA. FINDINGS: Bones: The bones are osteopenic. Minimal old anterior wedge deformities are present involving T6, T7 and T8. There is no evidence for an acute fracture or malalignment. The heights of the remaining thoracic vertebral bodies are maintained. There is a mild dextroscoliotic curve of the thoracic spine. The vertebral bodies are otherwise in anatomic alignment. Disc spaces: Moderate disc space narrowing is seen throughout the thoracic spine with endplate cirrhosis and osteophyte formation. Pedicles::The pedicles are intact bilaterally. Soft tissues: The paraspinal soft tissues are within normal limits. IMPRESSION: Osteopenia and degenerative disc disease with no acute osseous path ology. ACT 112: Negative or not required by law. Electronically signed by: González Patel M.D. 03/01/2021 4:23 PM Dictated:03/01/21 1621 Transcribed: 03/01/[address] lumbar spine wo con CLINICAL HISTORY: Trauma TECHNIQUE: Multidetector row helical CT of the lumbar spine was performed without administration of intravenous contrast. Coronal and sagittal reformations were obtained. Automated dose lowering techniques and/or adjustment according to patient size were utilized for this exam. Comparison: None available at the time of this dictation. FINDINGS: For counting purposes, the last complete intervertebral disc space is considered L5-S1. No acute fractures are identified. Degenerative changes are noted in the vis ualized spine. Scoliosis is seen. Surrounding soft tissues are unremarkable. IMPRESSION: Degenerative changes without evidence of acute abnormality. ACT 112: Negative or not required by law. Electronically signed by: Heath Rockwell M.D. 03/01/2021 4:24 PM Dictated:03/01/21 1621 Transcribed: 03/01/21 1621 XR hip LT 2V w pelvis CLINICAL HISTORY: Left hip pain following fall. COMPARISON: Pelvis radiograph October 22, 2020. FINDINGS: Sacroiliac joints and symphysis pubis are intact. Bilateral hip arthroplasties are noted. No periprosthetic fracture is noted. Alignment is anatomic. No acute fracture is identified within the pelvis or hips. IMPRESSION: 1. No acute fracture within the pelvis or hips. 2. Status post bilateral total hip arthroplasty. Hardware intact. No periprosthetic fracture. ACT 112: Negative or not required by law. Electronically signed by: Anthony Borden M.D. 03/01/2021 4:04 PM Dictated:03/01/21 1601 Transcribed: 03/01/[address] head/brain wo con CLINICAL HISTORY: Trauma Technique: Contiguous axial CT images of the head were acquired from the base of the skull to the vertex without intravenous contrast administration. Images were viewed in brain, subdural and bone windows. Automated dose lowering techniques and/or adjustment according to patient size were utilized for this exam. Comparison: Comparison is made to CT head 03/11/2018 Findings: Areas of decreased attenuation are present in the periventricular and subcortical white matter bilaterally consistent with small vessel ischemic disease. Generalized cerebral atrophy with commensurate enlargement of the vent ricles, sulci, and cisterns is also present. There is no acute intracranial hemorrhage or evidence of acute territorial infarction. No shift of the midline structures, mass effect, or extra-axial abnormalities are shown. Atherosclerotic calcifications are present in the intracranial segments of the internal carotid arteries. Imaged portions of the paranasal sinuses and mastoid air cells are clear. The orbits appear normal. There are no acute fractures of the calvaria or scalp swelling. Impression: No acute intracranial hemorrhage, no evidence of acute territorial infarction or other acute intracranial disease process. ACT 112: Negative or not required by law. Electronically signed by: Heath Rockwell M.D. 03/01/2021 4:21 PM Dictated:03/01/21 1618 Transcribed: 03/01/[address] cervical spine wo con CLINICAL HISTORY: Status post fall with neck pain. COMPARISON STUDY: No previous studies for comparison. CT DOSE: 1996.91 mGy.cm TECHNIQUE: Standard CT of the Cervical Spine was performed without IV contrast. A dose lowering technique was utilized adhering to the principles of ALARA. FINDINGS: Bones: The bones are osteopenic. There is no evidence for an acute fracture or malalignment. The heights of the vertebral bodies are maintained. The vertebral bodies are in anatomic alignment. The odontoid is intact. Degenerative changes are seen at the atlantoaxial articulation. Disc spaces:Moderate to marked disc space narrowing is present from C5 through C7 with endplate sclerosis and osteophyte formation. Mild disc space narrowing is seen throughout the remainder of the cervical spine. Apophyseal joints:Extensive degenerative apophyseal joint disease present bilaterally. Soft tissues:The prevertebral soft tissues are within normal limits. IMPRESSION: Osteopenia with degenerative disc and degenerative joint disease. No acute abnormality. ACT 112: Negative or not required by law. Electronically signed by: González Patel M.D. 03/01/2021 4:20 PM Dictated:03/01/21 1618 Transcribed: 03/01/21 1618 Hospital Course (1) New onset a-fib: Present on admission with weakness and SOB and found to be in Afib She was started on Heparin drip Troponin on admission 0.06->0.06-> 0.05 Telemonitor showed Afib with Rate control ECHO showed LV systolic function is normal. LV wall motion is normal with EF 60- 65% Continue metoprolol 25mg daily Case discussed with cardiology that recommended to start on anticoagulant witgh eliquis 2.5 mg BID, Will d/c Plavix Will continue Eliquis 2.5 mg BID Cardiology recommended to start on a thiazide diuretic 25mg 2x week Continue monitor closely (2) Elevated troponin: Possible demand ischemia due to Afib Troponin on admission 0.06->0.06-> 0.05 Denies any chest pain ECHO showed LV systolic function is normal. LV wall motion is normal with EF 60- 65% Plavix changed to Eliquis 2.5 mg BID (3) Fall: Scanned, no fractures sustained with fall, concerned that this was possibly orthostatic with her history of such, versus new A. fib causing worsening weakness CT head/cervical/lumbar/Thoracic spine are negative Continue PT/OT eval Fall precautions (4) S/P CABG x 1: (5) CAD (coronary artery disease): Denies any chest pain Currently on heparin drip Continue beta-blockade with metoprolol, lisinopril, statin therapy Will d/c Plavix since starting on Eliquis (6) Dyslipidemia: Continue statin therapy with rosuvastatin 40 mg daily (7) Hypertension: BP stable (8) Chronic kidney disease stage 3: - Chronic, stable, follow BMP with a.m. labs - Cr. 0.76 BUN 15 on admission. (9) Hypothyroidism: Continue levothyroxine DVT PPx: - teds, scds, Heparin drip CODE: Full code Dispo: Will discharge home today, Total Time Total Time Spent Total Time Spent (In Minutes): 35 minutes Discharge Plan Discharge Items Patient Disposition: Home - Home Health Services Reason For Visit: AFIB RVR, FALL Discharge Diagnosis: New onset a-fib: Elevated troponin: Fall: CAD (coronary artery disease): Dyslipidemia: Hypertension: Chronic kidney disease stage 3: Hypothyroidism: Activity: Resume your previous activity Non-emergency contact: Primary Care Provider and Religious Education Director Call non-emergency contact if: you have any medication questions Follow-up/Referrals: Noah Adams MD [Physician] - 03/22/21 12:45 pm Con Coughlin MD [Primary Care Provider] - (Date & Time 03/09/2021 3:00 PM Provider Con Coughlin MD Department [facility] ) Diet: Heart Healthy Addtl Attending Provider Instructions: Follow up with your primary care provider Dr. Coughlin on 03/09/2021 @ 3:00 PM at the [facility] Follow up with your [facility] cardilogy Dr. Adams in 2 weeks ( office will contact you for the appointment ) Continue physical and occupational therapy Plavix was discontinued and starting on Eliquis (blood thinner) to prevent any risk of stroke It is very improtant not to take the plavix while taking Eliquis due to increase risk of bleeding Monitor for any abnormal bleeding while on Eliquis Check BMP in 1-2 weeks while on Hydrochlorothiazide ( the water pill). Take the hydrochlorothiazide on Sunday and Sunday only. Fall precaution Medication Instructions: Eliquis Your condition is typically treated with an anticoagulant. Anticoagulants will thin your blood to help prevent new clots. You should take her medication exactly as directed. Never skip a dose. Never take a double dose. If you miss a dose, take it as soon as you remember. Avoid NSAIDs (Motrin, Aleve, Naproxen, Ibuprofen, Advil, Meloxicam,..) due to risks of bleeding Call your Primary Care doctor if you experience any of the following: Swelling or Pain in your leg Sudden, continuous pain deep in a muscle Pain that worsens when you are active or when you stand still for a long time Chest Pain Sudden Shortness of Breath Rapid or pounding heart beat Fainting Dizziness Cough with blood or bloody sputum Sweating more than normal Bruises Heavy or uncontrolled bleeding Blood in your urine, stool or vomit Black or tarry stools Pending Studies at Discharge: No Stand-Alone Forms: My [facility] [employer], Smoking Cessation Medications and DC Order Prescriptions: New Eliquis 2.5 mg tablet 2.5 mg PO BID Qty: 60 RF: 0 hydrochlorothiazide 25 mg tablet 25 mg PO 2XWK Qty: 30 RF: 0 Continued multivitamin tablet 1 tab PO QAM RF: 0 methocarbamol 500 mg tablet 500 mg PO TID Qty: 270 RF: 3 misoprostol 100 mcg Tablet 100 mcg PO QID RF: 0 levothyroxine [Levoxyl] 100 mcg Tablet 100 mcg PO DAILYBB RF: 0 gabapentin 800 mg Tablet 800 mg PO TID RF: 0 pantoprazole [Protonix] 40 mg Tablet,Delayed Release (Dr/Ec) 40 mg PO DAILY RF: 0 ferrous sulfate 325 mg (65 mg iron) Tablet 325 mg PO QAM RF: 0 buspirone 10 mg Tablet 10 mg PO BID RF: 0 lisinopril 2.5 mg Tablet 2.5 mg PO QAM RF: 0 rosuvastatin [Crestor] 40 mg Tablet 40 mg PO QAM RF: 0 hydrocodone-acetaminophen 7.5-325 mg tablet 1 tab PO Q6 PRN (Reason: Pain) RF: 0 metoprolol succinate 25 mg tablet extended release 24 hr 25 mg PO DAILY RF: 0 oxybutynin chloride 15 mg tablet extended release 24 hr 15 mg PO QAM RF: 0 lidocaine 4 % Adhesive Patch,Medicated 1 patch TOPICAL DAILY PRN (Reason: Pain) RF: 0 ondansetron HCl 4 mg Tablet 4 mg PO Q6H PRN (Reason: Nausea) RF: 0 melatonin 5 mg Tablet 5 mg PO HS PRN (Reason: Insomnia) RF: 0 duloxetine 30 mg 30 mg PO DAILY RF: 0 Discontinued clopidogrel [Plavix] 75 mg Tablet 75 mg PO QAM RF: 0 Discharge Orders: Discharge Order (Routine); Ordered 03/04/21 Ordered By: Ashleigh Balderas Admission Data Admit Date/Time: 03/01/21 17:52 Attending Provider: Ashleigh Balderas Admit Provider: Ludy Wilcox I. Primary Care Provider: Con Coughlin Other Providers: Ludy Wilcox I. ; Michi Sahni ; Catalina Mendo[facility] ; [facility] ; [facility] Other Interventions: Discharge Summary Assessment (RN) Last Done: 03/04/21 14:21
== END 2021-03-04 16:00 | disposition home health service (06) | DRG 309 ==
LOC: ED 14:21 → SUATTDRO 17:52 → EDINP 17:52 → 2S 21:03

== ENCOUNTER 2021-03-26 03:56 | Inpatient (IN) ==
--- NOTE | 2021-03-26 04:29 | Emergency Department Note ---
History of Present Illness General Chief complaint: Respiratory Problems Stated complaint: BREATHING TROUBLE Time Seen by Provider: 03/26/21 03:59 Source: patient Mode of arrival: EMS Limitations: no limitations History of Present Illness Provider complaint: Shortness of breath Onset (ago): hour(s) 2 This is an 82-year-old female presents emergency department via EMS complaining of an episode of shortness of breath. Patient states she woke up abruptly this morning with shortness of breath, she denies any other coming symptoms. Patient states she tried to wait for a little bit to see if it would go away on its own and it did not so she called 911. She states by the time EMS arrived it was starting to improve and on arrival here her symptoms had totally resolved. EMS reports patient never hypoxic, no respiratory distress. Patient denies any similar episodes. Patient denies any symptoms yesterday or at bedtime around midnight. Patient denies any recent fevers, chills, or URI symptoms. Pt seen during a time of high acuity and national emergency pandemic while wearing PPE. Home Medications Medication Instructions Recorded Confirmed Type ferrous sulfate 325 mg (65 mg 325 mg PO QAM 01/23/18 03/26/21 History iron) tablet gabapentin 800 mg tablet 800 mg PO TID 01/23/18 03/26/21 History levothyroxine 100 mcg tablet 100 mcg PO DAILYBB 01/23/18 03/26/21 History (Levoxyl) lisinopril 2.5 mg tablet 2.5 mg PO QAM 01/23/18 03/26/21 History pantoprazole 40 mg tablet,delayed 40 mg PO DAILY 01/23/18 03/26/21 History release (Protonix) rosuvastatin 40 mg tablet (Crestor) 40 mg PO QAM 01/23/18 03/26/21 History multivitamin 1 tab PO QAM 11/11/18 03/26/21 History misoprostol 100 mcg tablet 100 mcg PO QID 11/17/19 03/26/21 History methocarbamol 500 mg tablet 500 mg PO TID #270 tab 05/24/20 03/26/21 Rx metoprolol succinate 25 mg 25 mg PO DAILY 10/22/20 03/26/21 History tablet,extended release 24 hr oxybutynin chloride 15 mg 15 mg PO QAM 10/22/20 03/26/21 History tablet,extended release 24 hr lidocaine 4 % topical patch 1 patch TOPICAL DAILY PRN 03/01/21 03/26/21 History melatonin 5 mg tablet 5 mg PO HS PRN 03/01/21 03/26/21 History ondansetron HCl 4 mg tablet 4 mg PO Q6H PRN 03/01/21 03/26/21 History apixaban 2.5 mg tablet (Eliquis) 2.5 mg PO BID #180 tab 03/22/21 03/26/21 Rx buspirone 10 mg tablet 10 mg PO BID #60 tab 03/22/21 03/26/21 Rx hydrocodone 10 mg-acetaminophen 1 tab PO Q6 PRN 03/26/21 03/26/21 History 325 mg tablet torsemide 10 mg tablet 10 mg PO DAILY PRN 03/26/21 03/26/21 History triamterene 37.5 1 tab PO Q OTHER DAY 03/26/21 03/26/21 History mg-hydrochlorothiazide 25 mg tablet Allergies Allergy/AdvReac Type Severity Reaction Status Date / Time nitroglycerin AdvReac Severe "PROJECTILE Verified 03/22/21 14:32 VOMITTING" ergotamine AdvReac Intermediate vomiting Verified 03/22/21 14:32 Past Med/Surg History Medical History Acid reflux OCCASIONAL Arthritis CAD (coronary artery disease) Chronic back pain Depression History of blood transfusion 2012 2/ GASTRIC ULCER History of gastric ulcer 2013 Osteoarthritis Spinal stenosis Transient ischemic attack (TIA) ~2013>REASON FOR PLAVIX Surgical History H/O bilateral salpingo-oophorectomy with hyter History of abdominoplasty PANNICULECTOMY History of arthroplasty of left hip History of arthroplasty of left shoulder History of arthroplasty of right hip History of cardiac cath NO STENTS History of colonoscopy History of coronary artery bypass graft 1998 (1 VESSEL) History of esophagogastroduodenoscopy (EGD) History of hysterectomy with oophorectomy History of tonsillectomy and adenoidectomy S/P epidural steroid injection S/p reverse total shoulder arthroplasty RT/LEFT Family History Father , age 74 Allergic reaction Mother , 80s CHF (congestive heart failure) Other No family history of adverse response to anesthesia Social History Smoking Status: Never smoker Second Hand Exposure: No; Hx Alcohol Use: No Hx Substance Use: No Preferred Language: Iraqi Communication Ability: Effective Visual Impairment: No Limitations Records Technician Required: No Beliefs That Will Affect Care: Latter-Day Latter-Day Beliefs: Yazidi marital status: Single Current Living Situation: Alone Current Living Situation Comment: [facility] How many Children do You have: 0 Other Information That Helps Us Care for You: Yes (recently ) Feels Safe at Home: Yes Safety Concerns: Feels Safe At This Time Assistive Devices: Walker Review of Systems A total of 10 systems reviewed and were otherwise negative All systems reviewed & are unremarkable except as noted in HPI & below Physical Exam Vital Signs Vital Signs - 24 hr 03/26/21 06:30 03/26/21 08:00 Pulse Rate [Apical] 80 80 Respiratory Rate 16 18 Respiratory Effort / Characteristics Non-Labored Spontaneous Respiratory Depth Normal Blood Pressure [Left Arm] 134/67 138/69 Blood Pressure Mean [Left Arm] 89 92 Blood Pressure Position [Left Arm] Lying Pulse Oximetry 96 98 Oxygen Delivery Method Room Air Room Air GENERAL: alert, well appearing, well nourished, no distress, non-toxic EYE EXAM: normal conjunctiva, PERRL and EOM's grossly intact OROPHARYNX: no exudate, no erythema, lips, buccal mucosa, and tongue normal and mucous membranes are moist NECK: supple, no nuchal rigidity, no adenopathy, non-tender LUNGS: Clear to auscultation. Normal chest wall mechanics, no w/r/r HEART: no murmurs, S1 normal and S2 normal ABDOMEN: abdomen soft, non-tender, normo-active bowel sounds, no masses, no rebound or guarding. BACK: Back is symmetrical on inspection and there is no deformity, no midline tenderness, no CVA tenderness. SKIN: no rashes and no bruising UPPER EXTREMITIES: upper extremities are grossly normal. FROM, nml pulses b/l. LOWER EXTREMITIES: No pitting edema. FROM, nml pulses b/l. NEURO EXAM: Normal sensorium, cranial nerves II-XII grossly intact, normal speech, no gross weakness of arms, no gross weakness of legs. Gross sensation intact. Course Course 0711: States she feels fine at rest, still feels slightly short of breath with movement. Will attempt ambulatory pulse ox. 0725: Pt with significant increased WOB with ambulation, no hypoxia. Patient concerned as she lives alone. Administered Medications Hydrocodone Bitart/Acetaminophen (Hydrocodone/Acetaminophen 10/325 Tab) 1 tab PO Q6 PRN PRN Reason: Pain Stop: 04/09/21 11:14 Last Admin: 03/26/21 17:20 Dose: 1 tab Documented by: [id number] Apixaban (Apixaban 2.5 Mg Tab) 2.5 mg PO BID [facility] Stop: 04/25/21 20:59 Last Admin: 03/26/21 20:04 Dose: 2.5 mg Documented by: [id number] Buspirone HCl (Buspirone 5 Mg Tab) 10 mg PO BID [facility] Stop: 04/25/21 20:59 Last Admin: 03/26/21 20:03 Dose: 10 mg Documented by: [id number] Gabapentin (Gabapentin 800 Mg Tab) 800 mg PO TID [facility] Stop: 04/25/21 13:59 Last Admin: 03/26/21 20:04 Dose: 800 mg Documented by: [id number] Admin: 03/26/21 14:46 Dose: 800 mg Documented by: [id number] Hydroxyzine HCl (Hydroxyzine Hcl 25 Mg Tab) 50 mg PO Q8 PRN PRN Reason: Anxiety Stop: 04/25/21 16:42 Last Admin: 03/26/21 17:04 Dose: 50 mg Documented by: [id number] Melatonin (Melatonin 3 Mg Tab) 6 mg PO HS PRN PRN Reason: Insomnia Stop: 04/25/21 20:59 Last Admin: 03/26/21 22:10 Dose: 6 mg Documented by: [id number] Methocarbamol (Methocarbamol 500 Mg Tablet) 500 mg PO TID [facility] Stop: 04/25/21 13:59 Last Admin: 03/26/21 20:04 Dose: 500 mg Documented by: [id number] Admin: 03/26/21 14:47 Dose: 500 mg Documented by: [id number] Metoprolol Succinate (Metoprolol Succ 25mg Ext Rel Tab) 25 mg PO DAILY [facility] Stop: 04/25/21 11:44 Last Admin: 03/26/21 12:32 Dose: 25 mg Documented by: [id number] Misoprostol (Misoprostol 100 Mcg Tab) 100 mcg PO QID [facility]AN Stop: 04/25/21 12:59 Last Admin: 03/26/21 20:03 Dose: 100 mcg Documented by: [id number] Admin: 03/26/21 17:04 Dose: 100 mcg Documented by: [id number] Admin: 03/26/21 12:33 Dose: 100 mcg Documented by: [id number] Discontinued Medications Furosemide (Furosemide Inj 20 Mg/2 Ml Vial) 20 mg IV ONE ONE Stop: 03/26/21 07:33 Last Admin: 03/26/21 08:05 Dose: 20 mg Documented by: [id number] Medical Decision Making Differential Diagnosis Differential diagnoses includes but is not limited to pneumonia, bronchitis, COPD/Asthma exacerbation, pneumothorax, pulmonary embolism, congestive heart failure, acute coronary syndrome Medical Records Attestation: I reviewed the patient's medical records. Home Medications Current Medication List: was personally reviewed by me Laboratory Data Attestation: I reviewed the patient's lab results. Result diagrams: 03/26/21 04:25 03/26/21 04:25 Lab Results 03/26/21 03/26/21 03/26/21 Range/Units 04:25 04:25 04:25 WBC 6.44 (4.8-10.8) K/uL RBC 3.77 L (4.2-5.4) M/uL Hgb 11.6 L (12.0-16.0) g/dL Hct 36.1 L (37-47) % MCV 95.8 (80-100) fL MCH 30.8 (25-34) pg MCHC 32.1 (32-36) g/dL RDW Std Deviation 48.2 H (36.4-46.3) fL RDW Coeff of Howie 13.8 (11.5-14.5) % Plt Count 205 (130-400) K/uL MPV 9.6 (7.4-10.4) fL Immature Gran % (Auto) 0.3 % Neut % (Auto) 54.6 % Lymph % (Auto) 31.8 % Archer % (Auto) 10.2 % Eos % (Auto) 2.6 % Baso % (Auto) 0.5 % Neut # (Auto) 3.51 (1.4-6.5) K/uL Lymph # (Auto) 2.05 (1.2-3.4) K/uL Archer # (Auto) 0.66 H (0.11-0.59) K/uL Eos # (Auto) 0.17 (0-0.5) K/uL Baso # (Auto) 0.03 (0-0.2) K/uL Immature Gran # (Auto) 0.02 (0.00-0.02) K/uL Sodium 137 (136-145) mmol/L Potassium 3.7 (3.5-5.1) mmol/L Chloride 107 (98-107) mmol/L Carbon Dioxide 23 (21-32) mmol/L Anion Gap 7 (3-11) BUN 23 (6-23) mg/dl Creatinine 0.81 (0.6-1.2) mg/dl Est Cr Clr Drug Dosing 44.3 ml/min Est GFR ( Amer) 77.3 ml/min Est GFR (Non-Af Amer) 66.7 ml/min BUN/Creatinine Ratio 28.4 H (10-20) Glucose 94 (70-99(Fasting)) mg/dl Calcium 10.2 H (8.5-10.1) mg/dl Magnesium 1.8 (1.7-2.4) mg/dl Total Bilirubin 0.6 (0.2-1.0) mg/dl AST 17 (13-39) U/L ALT 13 (7-52) U/L Alkaline Phosphatase 58 (34-104) U/L Troponin I < 0.03 (0-0.04) ng/ml B-Natriuretic Peptide 282 H (0-100) pg/ml Total Protein 6.4 (6.0-8.3) gm/dl Albumin 3.5 (3.4-5.0) gm/dl Globulin 2.9 (2.5-4.0) gm/dl Albumin/Globulin Ratio 1.2 (0.9-2) 03/26/21 Range/Units 06:25 WBC (4.8-10.8) K/uL RBC (4.2-5.4) M/uL Hgb (12.0-16.0) g/dL Hct (37-47) % MCV (80-100) fL MCH (25-34) pg MCHC (32-36) g/dL RDW Std Deviation (36.4-46.3) fL RDW Coeff of Howie (11.5-14.5) % Plt Count (130-400) K/uL MPV (7.4-10.4) fL Immature Gran % (Auto) % Neut % (Auto) % Lymph % (Auto) % Archer % (Auto) % Eos % (Auto) % Baso % (Auto) % Neut # (Auto) (1.4-6.5) K/uL Lymph # (Auto) (1.2-3.4) K/uL Archer # (Auto) (0.11-0.59) K/uL Eos # (Auto) (0-0.5) K/uL Baso # (Auto) (0-0.2) K/uL Immature Gran # (Auto) (0.00-0.02) K/uL Sodium (136-145) mmol/L Potassium (3.5-5.1) mmol/L Chloride (98-107) mmol/L Carbon Dioxide (21-32) mmol/L Anion Gap (3-11) BUN (6-23) mg/dl Creatinine (0.6-1.2) mg/dl Est Cr Clr Drug Dosing ml/min Est GFR ( Amer) ml/min Est GFR (Non-Af Amer) ml/min BUN/Creatinine Ratio (10-20) Glucose (70-99(Fasting)) mg/dl Calcium (8.5-10.1) mg/dl Magnesium (1.7-2.4) mg/dl Total Bilirubin (0.2-1.0) mg/dl AST (13-39) U/L ALT (7-52) U/L Alkaline Phosphatase (34-104) U/L Troponin I < 0.03 (0-0.04) ng/ml B-Natriuretic Peptide (0-100) pg/ml Total Protein (6.0-8.3) gm/dl Albumin (3.4-5.0) gm/dl Globulin (2.5-4.0) gm/dl Albumin/Globulin Ratio (0.9-2) Imaging Data Radiologist's Impression: Chest X-Ray 03/26/21 04:10 SINGLE VIEW CHEST CLINICAL HISTORY: Dyspnea. FINDINGS: An AP, portable, upright chest radiograph is compared to chest x-ray and chest CT dated 10/27/2020. The patient is status post midline sternotomy. The heart is enlarged noting atherosclerotic calcification of the thoracic aorta. The pulmonary vasculature is noncongested. Chronic interstitial thickening is similar to previous. There is mild bibasilar scarring/atelectasis. The lungs and pleural spaces are otherwise clear. No pneumothorax is seen. The skeletal structures are osteopenic. There are healed right sided rib fractures. Bilateral shoulder arthroplasties are in place. IMPRESSION: Cardiomegaly with no acute cardiopulmonary abnormality. ACT 112: Negative or not required by law. Electronically signed by: Avel Calero M.D. 03/26/2021 6:14 AM ECG Data Attestation: I personally reviewed and interpreted this ECG as follows: Indication: + SOB/dyspnea Rate (beats per minute): 77 Rhythm: + atrial fibrillation ECG Intervals/blocks: + Normal QRS and + Normal QT ECG Dupont: + Normal ECG ST segments: + Normal ST segments ECG Findings: + PVCs MDM Narrative An order was placed for continuous cardiac monitoring. The monitor shows a rate of _80_ with _a.fib_ rhythm. Patient has no contributory family history at this time. Patient was first seen and observation began at 0359 and was necessary in order to evaluate the etiology of her complaint and r/o ACS. Upon re-evaluation, 3.5 hours of observation revealed that the patient should be admitted. Discharge from observation at 0730. Hospitalist contacted for additional inpatient management. This is an 82-year-old female with prior cardiac history who presents with abrupt onset of shortness of breath. Patient is anticoagulated due to history of atrial fibrillation and has not skipped any doses, I would low suspicion for PE. Patient's chest x-ray and labs reassuring however an elevation of her BNP was noted. Patient did have an echo recently which showed an LVEF of 60 to 65%. While patient does have bilateral lower extremity edema, there were no other overt signs of CHF. Patient's EKG did not reveal any new changes, and troponin x2 was negative. We did attempt an ambulatory trial as patient does live alone and has no family nearby and patient had significant dyspnea and tachypnea with ambulation despite not becoming overtly hypoxic. Due to this concern for possible anginal equivalent or evolving CHF, hospitalist was contacted for additional inpatient evaluation and management. Patient was given 1 dose of La six 20 mg here as a precaution. Impression & Plan Dyspnea, Elevated brain natriuretic peptide (BNP) level, Bilateral edema of lower extremity Discharge Plan Visit Data Chief Complaint: Respiratory Problems Stated Complaint: BREATHING TROUBLE ED Provider: Elsy Hill Discharge Problem: Dyspnea, Elevated brain natriuretic peptide (BNP) level, Bilateral edema of lower extremity Patient Disposition: Admitted As Inpatient Condition: Good Discharge Instructions Interventions: ED Discharge Assessment Last Done: 03/26/21 11:13 Discharge Problem: Dyspnea Qualifiers: Dyspnea type: shortness of breath Qualified Code(s): R06.02 - Shortness of breath
[2021-03-26 04:36] LABS: Basophils # (auto) 0.03 K/uL (0-0.2); Basophils % (auto) 0.5 %; Eosinophils # (auto) 0.17 K/uL (0-0.5); Eosinophils % (auto) 2.6 %; Hematocrit (blood only) 36.1 % (37-47); Hemoglobin 11.6 g/dL (12.0-16.0); Immature Granulocytes # (auto) 0.02 K/uL (0.00-0.02); Immature Granulocytes % (auto) 0.3 %; Lymphocytes # (auto) 2.05 K/uL (1.2-3.4); Lymphocytes % (auto) 31.8 %; Mean Corpuscular Hemoglobin 30.8 pg (25-34); Mean Corpuscular Hgb Conc 32.1 g/dL (32-36); Mean Corpuscular Volume 95.8 fL (80-100); Mean Platelet Volume 9.6 fL (7.4-10.4); Monocytes # (auto) 0.66 K/uL (0.11-0.59); Monocytes % (auto) 10.2 %; Neutrophils # (auto) 3.51 K/uL (1.4-6.5); Neutrophils % (auto) 54.6 %; Platelet Count 205 K/uL (130-400); RDW Coefficient of Variation 13.8 % (11.5-14.5); RDW Standard Deviation 48.2 fL (36.4-46.3); Red Blood Count 3.77 M/uL (4.2-5.4); White Blood Count 6.44 K/uL (4.8-10.8)
[2021-03-26 05:10] LABS: Troponin I < 0.03 ng/ml (0-0.04)
[2021-03-26 05:23] LABS: Alanine Aminotransferase 13 U/L (7-52); Albumin Globulin Ratio 1.2 (0.9-2); Albumin Level 3.5 gm/dl (3.4-5.0); Alkaline Phosphatase 58 U/L (34-104); Anion Gap 7 (3-11); Aspartate Aminotransferase 17 U/L (13-39); BUN Creatinine Ratio 28.4 (10-20); Bilirubin,Total 0.6 mg/dl (0.2-1.0); Blood Urea Nitrogen 23 mg/dl (6-23); Calcium 10.2 mg/dl (8.5-10.1); Carbon Dioxide 23 mmol/L (21-32); Chloride 107 mmol/L (98-107); Creatinine Clr Calc Pharmacy 44.3 ml/min; Est GFR (African American) 77.3 ml/min; Est GFR (Non-African American) 66.7 ml/min; Globulin 2.9 gm/dl (2.5-4.0); Glucose 94 mg/dl (70-99(Fasting)); Magnesium 1.8 mg/dl (1.7-2.4); Potassium 3.7 mmol/L (3.5-5.1); Sodium 137 mmol/L (136-145); Total Protein 6.4 gm/dl (6.0-8.3)
--- NOTE | 2021-03-26 06:15 | XRay Report ---
SINGLE VIEW CHEST CLINICAL HISTORY: Dyspnea. FINDINGS: An AP, portable, upright chest radiograph is compared to chest x-ray and chest CT dated 10/27. The patient is status post midline sternotomy. The heart is enlarged noting atherosclerotic ca lcification of the thoracic aorta. The pulmonary vasculature is noncongested. Chronic interstitial th ickening is similar to previous. There is mild bibasilar scarring/atelectasis. The lungs and pleural spaces are otherwise clear. No pneumothorax is seen. The skeletal structures are osteopenic. There ar e healed right sided rib fractures. Bilateral shoulder arthroplasties are in place. IMPRESSION: Cardiomegaly with no acute cardiopulmonary abnormality. ACT 112: Negative or not required by law. Electronically signed by: Avel Calero M.D. 03/26/2021 6:14 AM
[2021-03-26] MEDS ORDERED: FUROSEMIDE INJ 20 MG/2 ML VIAL IV ONE (07:32)
--- NOTE | 2021-03-26 10:29 | Electrocardiogram Report ---
Test Reason : Blood Pressure : / mmHG Vent. 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
--- NOTE | 2021-03-26 10:51 | History & Physical Report ---
Date of Service March 26, 2021 Assessment & Plan (1) BROUSSARD (dyspnea on exertion): (2) Shortness of breath: (3) Persistent atrial fibrillation: (4) Diastolic CHF with preserved left ventricular function, NYHA class 2: (5) CAD (coronary artery disease): (6) S/P CABG x 1: (7) Hypertension: (8) Chronic kidney disease stage 3: (9) Chronic osteoarthritis: (10) Hypothyroidism: (11) Urinary incontinence: (12) Mild aortic stenosis: (13) Depression: Plan: Shortness of Breath with BROUSSARD: -Pt did have elevated Pro-BNP on 03/15/21 (3539), however on exam and on imaging pt appeared euvolemic -Lungs CTA: no crackles and trace pitting edema on b/l LE -pt is in afib but rate controlled -trop neg but will trend -VSS -there is some confusion regarding dyazide vs torsemide ---- since pt is euvolemic will hold torsemide and continue Dyazide daily ---- will reach out to Dr. Adams regarding the pt -pts symptoms could be also due to Afib unsure whether she had a RVR at midnight - will monitor the pt on tele and possible outpt holter monitor -Stric I/O, Daily weights - PT/OT eval: pt lives @ [facility] living Persistent Afib: -will continue current metoprolol dose and eliquis - rate is controlled HFpEF: -pt is not volume overloaded -did receive 20mg of Lasix -since pt appeared euvolemic I do not think it is necessary to continue the pt on Lasix but continue her dyazide daily -cardiology consulted DJD with chronic pain: -will continue her gabapentin 800mg TID and hydrocodone prn - due to CHF and CKD III I would recommend low dose of gabapentin: advised the pt to discuss with PCP Other chronic medical conditions: -continue home meds Diet:heart health DVT PPx: Eliquis Code Status: Full Code Emergency Contact: Nona Rosado (Neighbour/Friend): [phone] History of Present Illness Chief Complaint: BROUSSARD Primary Care Provider: Con Coughlin MD Pt is a 82 y/o F with hx of persistent Afib (on eliquis), HFpEF, CAD s/p CABG, Mild , HLD, hypothyroidism, GERD, HTN, CKD III, DDD, Migraine, anxiety, depression, insomnia, urinary incontinence brought into the ER via ambulance for BROUSSARD. Per pt she woke up at 3 am with SOB which worsens with walking. She denied any CP, diaphoresis, dizziness or any GI symptoms. -per pt she had severe leg swelling few weeks ago which improved with taking Torsemide 10mg. However she denied any recent worsening LE edema, Orthopnea or intake of prednisone. - per pt she does not take Triamterene-HCTZ but was told to take torsemide daily. However per elementary school tutor note (Dr. Adams): her Triamterene-HCTZ was changed to every other day during clinic visit on 03/22/21 because pt appeared euvolemic and her weight was better than recent admission. Echo (02/2021): EF of 60-65%, LVH, Mild and Mild AR Dry weight: 60 kg (Epic chart review) Allergies Allergy/AdvReac Type Severity Reaction Status Date / Time nitroglycerin AdvReac Severe "PROJECTILE Verified 03/22/21 14:32 VOMITTING" ergotamine AdvReac Intermediate vomiting Verified 03/22/21 14:32 Home Medications Medication Instructions Recorded Confirmed Type ferrous sulfate 325 mg (65 mg 325 mg PO QAM 01/23/18 03/26/21 History iron) tablet gabapentin 800 mg tablet 800 mg PO TID 01/23/18 03/26/21 History levothyroxine 100 mcg tablet 100 mcg PO DAILYBB 01/23/18 03/26/21 History (Levoxyl) lisinopril 2.5 mg tablet 2.5 mg PO QAM 01/23/18 03/26/21 History pantoprazole 40 mg tablet,delayed 40 mg PO DAILY 01/23/18 03/26/21 History release (Protonix) rosuvastatin 40 mg tablet (Crestor) 40 mg PO QAM 01/23/18 03/26/21 History multivitamin 1 tab PO QAM 11/11/18 03/26/21 History misoprostol 100 mcg tablet 100 mcg PO QID 11/17/19 03/26/21 History methocarbamol 500 mg tablet 500 mg PO TID #270 tab 05/24/20 03/26/21 Rx metoprolol succinate 25 mg 25 mg PO DAILY 10/22/20 03/26/21 History tablet,extended release 24 hr oxybutynin chloride 15 mg 15 mg PO QAM 10/22/20 03/26/21 History tablet,extended release 24 hr lidocaine 4 % topical patch 1 patch TOPICAL DAILY PRN 03/01/21 03/26/21 History melatonin 5 mg tablet 5 mg PO HS PRN 03/01/21 03/26/21 History ondansetron HCl 4 mg tablet 4 mg PO Q6H PRN 03/01/21 03/26/21 History apixaban 2.5 mg tablet (Eliquis) 2.5 mg PO BID #180 tab 03/22/21 03/26/21 Rx buspirone 10 mg tablet 10 mg PO BID #60 tab 03/22/21 03/26/21 Rx hydrocodone 10 mg-acetaminophen 1 tab PO Q6 PRN 03/26/21 03/26/21 History 325 mg tablet torsemide 10 mg tablet 10 mg PO DAILY PRN 03/26/21 03/26/21 History triamterene 37.5 1 tab PO Q OTHER DAY 03/26/21 03/26/21 History mg-hydrochlorothiazide 25 mg tablet Past Med/Surg History Medical History Acid reflux OCCASIONAL Arthritis CAD (coronary artery disease) Chronic back pain Depression History of blood transfusion 2012 22 GASTRIC ULCER History of gastric ulcer 2012 Osteoarthritis Spinal stenosis Transient ischemic attack (TIA) ~2013>REASON FOR PLAVIX Surgical History H/O bilateral salpingo-oophorectomy with hyter History of abdominoplasty PANNICULECTOMY History of arthroplasty of left hip History of arthroplasty of left shoulder History of arthroplasty of right hip History of cardiac cath NO STENTS History of colonoscopy History of coronary artery bypass graft 1998 (1 VESSEL) History of esophagogastroduodenoscopy (EGD) History of hysterectomy with oophorectomy History of tonsillectomy and adenoidectomy S/P epidural steroid injection S/p reverse total shoulder arthroplasty RT/LEFT Family History Father , age 74 Allergic reaction Mother , 80s CHF (congestive heart failure) Other No family history of adverse response to anesthesia Social History Smoking Status: Never smoker Second Hand Exposure: No; Hx Alcohol Use: No Hx Substance Use: No Preferred Language: Wallisian Communication Ability: Effective Visual Impairment: No Limitations Ferryboat Ticket Taker Required: No Beliefs That Will Affect Care: None marital status: Single Current Living Situation: Alone Current Living Situation Comment: [facility] How many Children do You have: 0 Feels Safe at Home: Yes Assistive Devices: None Review of Systems Review of Systems: At least 10 Review of systems were reviewed and all negative except as indicated in HPI Physical Exam Physical Exam: General:. NAD, well developed, well nourished, average body habitus HEENT:. Normocephalic and atraumatic, Normal Conjunctiva, EOMI, Sclera is non- icteric Lungs:. No signs of respiratory distress, CTA, no wheezing or crackles Heart:.systolic murmur, in afib Abdominal:. ND, Soft, NT MSK:.trace pitting edema of distal b/l LE Psych:. AAOx3, normal affect Results & Data Results & Data ([facility]) Vital Signs (Past 12 Hours) Vital Signs Temp Pulse Pulse Resp BP BP Pulse Ox 03/26/21 10:00 75 18 135/81 98 03/26/21 08:00 80 18 138/69 98 03/26/21 06:30 80 16 134/67 96 03/26/21 04:00 36.5 C 72 16 156/92 H 98 Laboratory Results Short CBC 03/26/21 Range/Units 04:25 WBC 6.44 (4.8-10.8) K/uL Hgb 11.6 L (12.0-16.0) g/dL Hct 36.1 L (37-47) % Plt Count 205 (130-400) K/uL BMP 03/26/21 04:25 Sodium 137 Potassium 3.7 Chloride 107 Carbon Dioxide 23 BUN 23 Creatinine 0.81 Glucose 94 Calcium 10.2 H Cardiac Enzymes 03/26/21 03/26/21 Range/Units 04:25 06:25 Troponin I < 0.03 < 0.03 (0-0.04) ng/ml Liver Function 03/26/21 Range/Units 04:25 Total Bilirubin 0.6 (0.2-1.0) mg/dl AST 17 (13-39) U/L ALT 13 (7-52) U/L Alkaline Phosphatase 58 (34-104) U/L Albumin 3.5 (3.4-5.0) gm/dl Diagnostic Findings Chest X-Ray 03/26/21 04:10 SINGLE VIEW CHEST CLINICAL HISTORY: Dyspnea. FINDINGS: An AP, portable, upright chest radiograph is compared to chest x-ray and chest CT dated 10/27/2020. The patient is status post midline sternotomy. The heart is enlarged noting atherosclerotic calcification of the thoracic aorta. The pulmonary vasculature is noncongested. Chronic interstitial thickening is similar to previous. There is mild bibasilar scarring/atelectasis. The lungs and pleural spaces are otherwise clear. No pneumothorax is seen. The skeletal structures are osteopenic. There are healed right sided rib fractures. Bilateral shoulder arthroplasties are in place. IMPRESSION: Cardiomegaly with no acute cardiopulmonary abnormality. ACT 112: Negative or not required by law. Electronically signed by: Avel Calero M.D. 03/26/2021 6:14 AM Code Status & VTE Plan VTE Prophylaxis Plan VTE Prophylaxis will be ordered: Yes (1) Urinary incontinence Urinary Incontinence type: unspecified incontinence Qualified Code(s): R32 - Unspecified urinary incontinence (2) CAD (coronary artery disease) Associated angina: without angina Coronary Disease-Associated Artery/Lesion type: [place] artery [place] vs. transplanted heart: [place] heart Qualified Code(s): I25.10 - Atherosclerotic heart disease of [place] coronary artery without angina pectoris (3) Depression Depression Type: unspecified Qualified Code(s): F32.9 - Major depressive disorder, single episode, unspecified (4) Hypothyroidism Hypothyroidism type: unspecified Qualified Code(s): E03.9 - Hypothyroidism, unspecified (5) Hypertension Hypertension type: essential hypertension Qualified Code(s): I10 - Essential (primary) hypertension
[2021-03-26] MEDS ORDERED: HYDROcodone/ACETAMINOPHEN 10/325 TAB PO PRN (11:15)
--- NOTE | 2021-03-26 11:49 | Cardiology Consultation ---
Date of Consultation March 26, 2021 Assessment & Plan (1) Shortness of breath: (2) Persistent atrial fibrillation: (3) CAD (coronary artery disease): (4) S/P CABG x 1: (5) Hypertension: Patient with acute onset of subjective dyspnea earlier this morning, comfortable now. Perhaps she had transient mild volume overload, currently she appears euvolemic with normal neck veins, benign lung exam, and clear chest x-ray. Suboptimally controlled ventricular rate could cause subjective dyspnea, but has yet there is no evidence for this as her heart rate has consistently been in the 70-80 bpm range. As noted, she is already diuresing well. There should eliminate any prior volume overload. Agree with monitoring overnight to further evaluate the cause of her nocturnal dyspnea. If she does well and appears euvolemic in the morning with no significant pathologic source of dyspnea identified, could be discharged home with sliding scale diuretic regimen and follow-up in heart failure clinic. Further recommendations as to the details of her sliding scale diuretic regimen based on her volume status tomorrow (after IV diuresis), will follow up with further diuretic recommendations at that time. No evidence of ongoing myocardial ischemia by ECG or troponin. Thank you for allowing me to participate in the care of this longstanding patient. History of Present Illness Reason for Consultation: BROUSSARD Requesting Physician: Gilbert Calloway MD Attending Physician: Gilbert Calloway MD History of Present Illness 82-year-old woman with CAD (single vessel SANDOVAL to LAD CABG 1998), minor CVA 2012, hypertension, diastolic congestive heart failure, and persistent atrial fibrillation (metoprolol/reduced dose apixaban) who is admitted this morning for acute onset dyspnea last night. Patient well-known to me from outpatient management since her CABG in 1998. She had done well from a cardiac standpoint until last month when she was admitted with new onset atrial fibrillation with mild diastolic CHF believed secondary to rapid ventricular response. She diuresed quickly at the time and was discharged on twice weekly hydrochlorothiazide. She was doing well at the time of an office visit with me last week. She did not note significant weight gain over the past few days, but states that she woke up early this morning acutely short of breath and that her heart rate was "all over the place". She lives alone and was concerned, she presented to the ER for evaluation. She denies chest pain at any time. No significant leg edema. ER evaluation showed mildly elevated BNP, negative troponin, ECG with rate controlled and no ischemia, chest x-ray without evidence of pulmonary edema. She was given a dose of furosemide 20 mg IV in the ER and is already noting a brisk diuresis. Currently, she denies any dyspnea at rest. Diuretic history: She first initiated diuretics in 2019 when she was given Dyazide to be used on a PRN basis for leg edema/weight gain. She used this only rarely, often going months without any need for diuretic, as recently as the summer 2020. She was hospitalized October 2020 for ambulatory dysfunction, discharged on Dyazide PRN once again. At the time of her hospitalization February 2021 for A. fib/RVR, she diuresed quickly and was discharged on twice weekly HCTZ. However, when I saw her in the office last week she noted that she had been taking Dyaide daily and I recommended that she reduce it to every other day. She apparently had available torsemide 10 mg to be taken on a PRN basis as well, I can find no record in the [employer] chart as to when and where this was initiated. She states that he she had not been taking this last week, but she may have been taking it several weeks ago. She was hospitalized at [facility] sometime last year, this may be the source of her torsemide prescription. She had no somatic complaints at the time of my evaluation. Allergies Allergy/AdvReac Type Severity Reaction Status Date / Time nitroglycerin AdvReac Severe "PROJECTILE Verified 03/22/21 14:32 VOMITTING" ergotamine AdvReac Intermediate vomiting Verified 03/22/21 14:32 Home Medications Medication Instructions Recorded Confirmed Type ferrous sulfate 325 mg (65 mg 325 mg PO QAM 01/23/18 03/26/21 History iron) tablet gabapentin 800 mg tablet 800 mg PO TID 01/23/18 03/26/21 History levothyroxine 100 mcg tablet 100 mcg PO DAILYBB 01/23/18 03/26/21 History (Levoxyl) lisinopril 2.5 mg tablet 2.5 mg PO QAM 01/23/18 03/26/21 History pantoprazole 40 mg tablet,delayed 40 mg PO DAILY 01/23/18 03/26/21 History release (Protonix) rosuvastatin 40 mg tablet (Crestor) 40 mg PO QAM 01/23/18 03/26/21 History multivitamin 1 tab PO QAM 11/11/18 03/26/21 History misoprostol 100 mcg tablet 100 mcg PO QID 11/17/19 03/26/21 History methocarbamol 500 mg tablet 500 mg PO TID #270 tab 05/24/20 03/26/21 Rx metoprolol succinate 25 mg 25 mg PO DAILY 10/22/20 03/26/21 History tablet,extended release 24 hr oxybutynin chloride 15 mg 15 mg PO QAM 10/22/20 03/26/21 History tablet,extended release 24 hr lidocaine 4 % topical patch 1 patch TOPICAL DAILY PRN 03/01/21 03/26/21 History melatonin 5 mg tablet 5 mg PO HS PRN 03/01/21 03/26/21 History ondansetron HCl 4 mg tablet 4 mg PO Q6H PRN 03/01/21 03/26/21 History apixaban 2.5 mg tablet (Eliquis) 2.5 mg PO BID #180 tab 03/22/21 03/26/21 Rx buspirone 10 mg tablet 10 mg PO BID #60 tab 03/22/21 03/26/21 Rx hydrocodone 10 mg-acetaminophen 1 tab PO Q6 PRN 03/26/21 03/26/21 History 325 mg tablet torsemide 10 mg tablet 10 mg PO DAILY PRN 03/26/21 03/26/21 History triamterene 37.5 1 tab PO Q OTHER DAY 03/26/21 03/26/21 History mg-hydrochlorothiazide 25 mg tablet Patient History Medical History Acid reflux OCCASIONAL Arthritis CAD (coronary artery disease) Chronic back pain Depression History of blood transfusion 03/23 GASTRIC ULCER History of gastric ulcer 2013 Osteoarthritis Spinal stenosis Transient ischemic attack (TIA) ~2013>REASON FOR PLAVIX Surgical History H/O bilateral salpingo-oophorectomy with hyter History of abdominoplasty PANNICULECTOMY History of arthroplasty of left hip History of arthroplasty of left shoulder History of arthroplasty of right hip History of cardiac cath NO STENTS History of colonoscopy History of coronary artery bypass graft 1998 (1 VESSEL) History of esophagogastroduodenoscopy (EGD) History of hysterectomy with oophorectomy History of tonsillectomy and adenoidectomy S/P epidural steroid injection S/p reverse total shoulder arthroplasty RT/LEFT Family History Father , age 74 Allergic reaction Mother , 80s CHF (congestive heart failure) Other No family history of adverse response to anesthesia Social History Smoking Status: Never smoker Second Hand Exposure: No; Hx Alcohol Use: No Hx Substance Use: No Preferred Language: Mongolian Communication Ability: Effective Visual Impairment: No Limitations Rare/Endangered Species Specialist Required: No Beliefs That Will Affect Care: None marital status: Single Current Living Situation: Alone Current Living Situation Comment: [facility] How many Children do You have: 0 Feels Safe at Home: Yes Assistive Devices: None Physical Exam Physical Exam: Normal habitus elderly white female in no distress. Weight down 3 pounds from her hospital discharge weight in February, but up 3 pounds from her weight in the office last week. BP mildly hypertensive. Pulse 76 bpm and irregular. Skin: No unusual lesions or ecchymosis. HEENT: Unremarkable. Neck: Jugular venous pulse at the clavicle pulse at 90, carotid with bilateral transmitted murmur. Lungs: Clear and equal breath sounds bilaterally. No wheezing or crackles. Cardiac: irregular rhythm with normal S1 and moderately diminished A2. 2/6 systolic ejection murmur at the right upper sternal border radiating to the carotids, 2/6 apical holosystolic murmur radiating to the axilla. No diastolic murmur or distinct gallop. Abdomen: Benign. Extremities: Nontender without pretibial edema. Intact peripheral pulses. Neurologic: Normal affect and conversation, nonfocal Results & Data ([facility]) Vital Signs (Past 12 Hours) Vital Signs Temp Pulse Pulse Resp BP BP BP 03/26/21 11:15 98.1 F 80 20 145/89 H 145/89 H 03/26/21 10:00 75 18 135/81 03/26/21 08:00 80 18 138/69 03/26/21 06:30 80 16 134/67 03/26/21 04:00 97.7 F 72 16 156/92 H Pulse Ox 03/26/21 11:15 99 03/26/21 10:00 98 03/26/21 08:00 98 03/26/21 06:30 96 03/26/21 04:00 98 Laboratory Results Normal electrolytes, BUN 23, creatinine 0.81. BNP 282. Troponin negative. Diagnostic Findings ECG today showed atrial fibrillation with aberrancy/PVCs, old septal infarct, rate 77 bpm. Compared with 03/22/2021 ECG, no significant change. Telemetry shows atrial fibrillation with controlled ventricular rate of 70-80 bpm with no high rate episodes. Chest x-ray today showed cardiomegaly with no acute cardiopulmonary abnormality. No evidence of overt pulmonary congestion. Echocardiogram February 2021 showed EF 6065% with mild LVH, mild aortic stenosis, moderate mitral regurgitation, moderate tricuspid vegetation, mild pulmonary h ypertension with mildly dilated inferior vena cava. Compared with September 2019 study, rhythm was no longer sinus, otherwise no significant change. PG Care Time/CCT Total # of Minutes Spent Total Time Spent with Patient: Total time spent is greater than 50% in coordination of care (as documented) at patient's floor/unit and/or counseling patient: Coding Level of Care Code 06424 Office/OBS Consult Lvl 4 Diagnoses Shortness of breath R06.02 Persistent atrial fibrillation I48.19 S/P CABG x 1 Z95.1 Hypertension I10 Hypertension type: essential hypertension CAD (coronary artery disease) I25.10 Coronary Disease-Associated Artery/Lesion type: [place] artery [place] vs. transplanted heart: [place] heart Associated angina: without angina (1) Hypertension Hypertension type: essential hypertension Qualified Code(s): I10 - Essential (primary) hypertension (2) CAD (coronary artery disease) Coronary Disease-Associated Artery/Lesion type: [place] artery [place] vs. transplanted heart: [place] heart Associated angina: without angina Qualified Code(s): I25.10 - Atherosclerotic heart disease of [place] coronary artery without angina pectoris
[2021-03-26] MEDS: METOPROLOL SUCC 25MG EXT REL TAB PO SCH (12:32)
[2021-03-26] MEDS: miSOPROStoL 100 MCG TAB PO SCH ×3 (12:33→20:03)
[2021-03-26] MEDS: GABAPENTIN 800 MG TAB PO SCH ×2 (14:46→20:04)
[2021-03-26] MEDS: METHOCARBAMOL 500 MG TABLET PO SCH ×2 (14:47→20:04)
[2021-03-26] MEDS ORDERED: hydrOXYzine HCl 25 MG TAB PO PRN (16:43)
[2021-03-26] MEDS: busPIRone 5 MG TAB PO SCH (20:03)
[2021-03-26] MEDS: APIXABAN 2.5 MG TAB PO SCH (20:04)
[2021-03-26] MEDS: MELATONIN 3 MG TAB PO PRN (22:10)
[2021-03-27 06:20] LABS: Basophils # (auto) 0.03 K/uL (0-0.2); Basophils % (auto) 0.6 %; Eosinophils # (auto) 0.13 K/uL (0-0.5); Eosinophils % (auto) 2.4 %; Hematocrit (blood only) 36.8 % (37-47); Hemoglobin 11.7 g/dL (12.0-16.0); Immature Granulocytes # (auto) 0.01 K/uL (0.00-0.02); Immature Granulocytes % (auto) 0.2 %; Lymphocytes # (auto) 2.64 K/uL (1.2-3.4); Lymphocytes % (auto) 49.6 %; Mean Corpuscular Hemoglobin 30.7 pg (25-34); Mean Corpuscular Hgb Conc 31.8 g/dL (32-36); Mean Corpuscular Volume 96.6 fL (80-100); Mean Platelet Volume 9.6 fL (7.4-10.4); Monocytes # (auto) 0.55 K/uL (0.11-0.59); Monocytes % (auto) 10.3 %; Neutrophils # (auto) 1.96 K/uL (1.4-6.5); Neutrophils % (auto) 36.9 %; Platelet Count 198 K/uL (130-400); RDW Coefficient of Variation 13.9 % (11.5-14.5); RDW Standard Deviation 48.9 fL (36.4-46.3); Red Blood Count 3.81 M/uL (4.2-5.4); White Blood Count 5.32 K/uL (4.8-10.8)
[2021-03-27] MEDS: LEVOTHYROXINE SODIUM 100 MCG TABLET PO SCH (06:30)
[2021-03-27 06:46] LABS: Albumin Globulin Ratio 1.2 (0.9-2); Albumin Level 3.3 gm/dl (3.4-5.0); BUN Creatinine Ratio 29.2 (10-20); Bilirubin,Total 0.5 mg/dl (0.2-1.0); Calcium 9.7 mg/dl (8.5-10.1); Creatinine Clr Calc Pharmacy 40.5 ml/min; Est GFR (Non-African American) 59.5 ml/min; Globulin 2.7 gm/dl (2.5-4.0); Magnesium 1.9 mg/dl (1.7-2.4); Potassium 3.6 mmol/L (3.5-5.1)
[2021-03-27] MEDS: lisinopril 2.5 MG TAB PO SCH (09:25)
[2021-03-27] MEDS: OXYBUTYNIN CHLORIDE XL 5 MG TABCR PO SCH (09:25)
[2021-03-27] MEDS: APIXABAN 2.5 MG TAB PO SCH ×2 (09:26→21:00)
[2021-03-27] MEDS: GABAPENTIN 800 MG TAB PO SCH ×3 (09:26→21:00)
[2021-03-27] MEDS: PANTOprazole 40 MG TAB PO SCH (09:26)
[2021-03-27] MEDS: miSOPROStoL 100 MCG TAB PO SCH ×4 (09:26→21:00)
[2021-03-27] MEDS: busPIRone 5 MG TAB PO SCH ×2 (09:26→20:59)
[2021-03-27] MEDS: FERROUS SULFATE 325 MG TAB PO SCH (09:26)
[2021-03-27] MEDS: MULTIVITAMIN TAB PO SCH (09:26)
[2021-03-27] MEDS: METOPROLOL SUCC 25MG EXT REL TAB PO SCH (09:26)
[2021-03-27] MEDS: TRIAMTERENE/HCTZ 37.5/25MG TAB PO SCH (09:26)
[2021-03-27] MEDS: METHOCARBAMOL 500 MG TABLET PO SCH ×3 (09:27→21:01)
[2021-03-27] MEDS: ROSUVASTATIN CALCIUM 20 MG TAB PO SCH (09:37)
--- NOTE | 2021-03-27 10:45 | Cardiology Progress Note ---
Date of Service March 27, 2021 Assessment & Plan (1) Acute on chronic heart failure with preserved ejection fraction (HFpEF): (2) Persistent atrial fibrillation: (3) CAD (coronary artery disease): (4) S/P CABG x 1: (5) Hypertension: Plan: Given her prompt response to diuresis, suspect mild volume overload which resolved after IV furosemide administered upon admission. Increase activity, she lives alone and is concerned about returning home. When she has demonstrated ability to perform activities of daily living, she could be discharged home. Otherwise, I encouraged her to consider staying at a rehabilitation facility for physical/exercise therapy. Recommend that she continue triamterene/HCTZ 37.5/25 mg upon discharge, however she should increase her dose from every other day to daily. Also recommend follow-up in heart failure clinic with La Damian PA-C this week. Her recent onset/persistent atrial fibrillation has good rate control and she is anticoagulated with reduced dose apixaban (given advanced age and low body weight). Continue her current dose of metoprolol succinate 25 mg daily as well as her apixaban 2.5 mg twice daily as outpatient. She was transiently hypertensive on admission, BP normalized with diuresis. She did have some transient asymptomatic hypotension overnight, if she demonstrates further hypotension would discontinue her very low-dose lisinopril. I am off tomorrow and therefore will sign off this consultation. Please contact [facility] physician group cardiology if further questions arise tomorrow. Thank you for allowing me to participate in the care of this longstanding patient. Admission and Anticipated Discharge Date Admission Date: March 26, 2021 Subjective Patient notes that she slept better than she has in some time. No dyspnea, chest discomfort, or other complaints. She still feels weak and would like to try walking in the hallways. Telemetry showed atrial fibrillation with well-controlled ventricular response (60-80 bpm). No high rate episodes. Physical Exam Physical Exam: Normal habitus elderly white female in no distress. Weight up 1 pound (question accuracy, bed scale). BP normotensive. Pulse 68 bpm and irregular. Skin: No unusual lesions or ecchymosis. HEENT: Unremarkable. Neck: Jugular venous pulse at the clavicle pulse at 90, carotid with bilateral transmitted murmur. Lungs: Clear and equal breath sounds bilaterally. No wheezing or crackles. Cardiac: irregular rhythm with normal S1 and moderately diminished A2. 2/6 systolic ejection murmur at the right upper sternal border radiating to the carotids, 2/6 apical holosystolic murmur radiating to the axilla. No diastolic murmur or distinct gallop. Abdomen: Benign. Extremities: Nontender without pretibial edema. Intact peripheral pulses. Neurologic: Normal affect and conversation, nonfocal Results & Data ([facility]) Vital Signs (Past 12 Hours) Vital Signs Temp Pulse Pulse Resp BP Pulse Ox Pulse Ox 03/27/21 10:08 65 03/27/21 07:06 97.9 F 69 18 121/77 99 03/27/21 02:27 97.9 F 64 18 98/60 L 97 03/26/21 23:23 98.1 F 66 16 101/61 97 97 Laboratory Results Normal electrolytes, BUN 26, creatinine 0.89 (BUN 23/creatinine 0.81 yesterday). PG Care Time/CCT Total # of Minutes Spent Total Time Spent with Patient: Total time spent is greater than 50% in coordination of care (as documented) at patient's floor/unit and/or counseling patient: Coding Level of Care Code 04245 Subseq Hosp Care Lvl 3 Diagnoses Persistent atrial fibrillation I48.19 CAD (coronary artery disease) I25.10 Coronary Disease-Associated Artery/Lesion type: [place] artery [place] vs. transplanted heart: [place] heart Associated angina: without angina S/P CABG x 1 Z95.1 Hypertension I10 Hypertension type: essential hypertension Acute on chronic heart failure with preserved ejection fraction (HFpEF) I50.33 (1) CAD (coronary artery disease) Coronary Disease-Associated Artery/Lesion type: [place] artery [place] vs. transplanted heart: [place] heart Associated angina: without angina Qualified Code(s): I25.10 - Atherosclerotic heart disease of [place] coronary artery without angina pectoris (2) Hypertension Hypertension type: essential hypertension Qualified Code(s): I10 - Essential (primary) hypertension
--- NOTE | 2021-03-27 13:49 | Hospitalist Progress Note ---
Date of Service March 27, 2021 Assessment & Plan (1) BROUSSARD (dyspnea on exertion): (2) Shortness of breath: (3) Persistent atrial fibrillation: (4) Diastolic CHF with preserved left ventricular function, NYHA class 2: (5) CAD (coronary artery disease): (6) S/P CABG x 1: (7) Hypertension: (8) Chronic kidney disease stage 3: (9) Chronic osteoarthritis: (10) Hypothyroidism: (11) Urinary incontinence: (12) Mild aortic stenosis: (13) Depression: Plan: Shortness of Breath with BROUSSARD: -Pt did have elevated Pro-BNP on 03/15/21 (3539), however on exam and on imaging pt appeared euvolemic -Lungs CTA: no crackles and trace pitting edema on b/l LE -pt is in afib but rate controlled -cash pt is euvolemic will hold torsemide and continue Dyazide daily - will monitor the pt on tele and possible outpt holter monitor -Stric I/O, Daily weights - PT/OT eval: pt lives @ [facility] -Appreciate cardiology input and recommendation -Medications have been adjusted and the patient is ready to be discharged discharge as per cardiology -We will get PT and OT evaluation and possible discharge tomorrow Persistent Afib: -will continue current metoprolol dose and eliquis - rate is controlled but on the upper side at 94 HFpEF: -pt is not volume overloaded -did receive 20mg of Lasix -since pt appeared euvolemic I do not think it is necessary to continue the pt on Lasix but continue her dyazide daily -cardiology consulted -appreciate input and recommendation -Medications have been updated-she will be discharged on Dyazide only DJD with chronic pain: -will continue her gabapentin 800mg TID and hydrocodone prn - due to CHF and CKD III I would recommend low dose of gabapentin: advised the pt to discuss with PCP Other chronic medical conditions: -continue home meds Diet:heart health DVT PPx: Eliquis Code Status: Full Code Emergency Contact: Nona Rosado (Neighbour/Friend): [phone] Admission and Anticipated Discharge Date Admission Date: March 26, 2021 Subjective 03/27/2021 The patient was seen and examined in medical telemetry unit She denies any shortness of breath but complains to have extreme weakness and tiredness She has had OT therapy today and remains very tired to go home Denies any chest pain and/or palpitation Review of Systems Review of Systems: All systems reviewed and are unremarkable except as noted below Respiratory: No shortness of breath at rest Cardiovascular: Additional Comments: No chest pain and/or palpitation Physical Exam Physical Exam: Sitting at the edge of the bed without any acute distress Constitutional: + ill appearing and + thin Eyes: PERRL, conjunctivae normal, anicteric sclerae ENMT: external ear and nose normal, oropharynx normal Respiratory: no respiratory distress Auscultation: lungs clear to auscultation bilaterally; no crackles Cardiovascular: Rate/Rhythm: + irregularly irregular; not tachycardic Heart Sounds: normal S1, normal S2 and + murmur (2/6 apical systolic murmur) Gastrointestinal (Abdomen): Inspection/Auscultation: normal bowel sounds; abdomen not distended Percussion/Palpation: abdomen soft; abdomen nontender Musculoskeletal: No acute arthritis in any joint Neurologic: Alert, awake and oriented x3. She is generally very weak Results & Data Results & Data ([facility]) Vital Signs (Past 12 Hours) Vital Signs Temp Pulse Pulse Resp BP Pulse Ox 03/27/21 11:43 36.4 C L 94 H 103/65 92 03/27/21 10:08 65 03/27/21 07:06 36.6 C 69 18 121/77 99 03/27/21 02:27 36.6 C 64 18 98/60 L 97 Laboratory Results Short CBC 03/27/21 Range/Units 05:54 WBC 5.32 (4.8-10.8) K/uL Hgb 11.7 L (12.0-16.0) g/dL Hct 36.8 L (37-47) % Plt Count 198 (130-400) K/uL BMP 03/27/21 05:54 Sodium 139 Potassium 3.6 Chloride 106 Carbon Dioxide 26 BUN 26 H Creatinine 0.89 Glucose 84 Calcium 9.7 Cardiac Enzymes 03/26/21 Range/Units 18:41 Troponin I < 0.03 (0-0.04) ng/ml Liver Function 03/27/21 Range/Units 05:54 Total Bilirubin 0.5 (0.2-1.0) mg/dl AST 14 (13-39) U/L ALT 10 (7-52) U/L Alkaline Phosphatase 57 (34-104) U/L Albumin 3.3 L (3.4-5.0) gm/dl Medications Administered Current Inpatient Medications Hydrocodone Bitart/Acetaminophen (Hydrocodone/Acetaminophen 10/325 Tab) 1 tab PO Q6 PRN PRN Reason: Pain Stop: 04/09/21 11:14 Last Admin: 03/26/21 17:20 Dose: 1 tab Documented by: Apixaban (Apixaban 2.5 Mg Tab) 2.5 mg PO BID [facility] Stop: 04/25/21 20:59 Last Admin: 03/27/21 09:26 Dose: 2.5 mg Documented by: Buspirone HCl (Buspirone 5 Mg Tab) 10 mg PO BID [facility] Stop: 04/25/21 20:59 Last Admin: 03/27/21 09:26 Dose: 10 mg Documented by: Ferrous Sulfate (Ferrous Sulfate 325 Mg Tab) 325 mg PO QAM [facility] Stop: 04/26/21 08:59 Last Admin: 03/27/21 09:26 Dose: 325 mg Documented by: Gabapentin (Gabapentin 800 Mg Tab) 800 mg PO TID [facility] Stop: 04/25/21 13:59 Last Admin: 03/27/21 13:09 Dose: 800 mg Documented by: Hydroxyzine HCl (Hydroxyzine Hcl 25 Mg Tab) 50 mg PO Q8 PRN PRN Reason: Anxiety Stop: 04/25/21 16:42 Last Admin: 03/26/21 17:04 Dose: 50 mg Documented by: Levothyroxine Sodium (Levothyroxine Sodium 100 Mcg Tablet) 100 mcg PO DAILYBB [facility] Stop: 04/26/21 06:29 Last Admin: 03/27/21 06:30 Dose: 100 mcg Documented by: Lisinopril (Lisinopril 2.5 Mg Tab) 2.5 mg PO QAM [facility] Stop: 04/26/21 08:59 Last Admin: 03/27/21 09:25 Dose: 2.5 mg Documented by: Melatonin (Melatonin 3 Mg Tab) 6 mg PO HS PRN PRN Reason: Insomnia Stop: 04/25/21 20:59 Last Admin: 03/26/21 22:10 Dose: 6 mg Documented by: Methocarbamol (Methocarbamol 500 Mg Tablet) 500 mg PO TID [facility] Stop: 04/25/21 13:59 Last Admin: 03/27/21 13:10 Dose: 500 mg Documented by: Metoprolol Succinate (Metoprolol Succ 25mg Ext Rel Tab) 25 mg PO DAILY [facility] Stop: 04/25/21 11:44 Last Admin: 03/27/21 09:26 Dose: 25 mg Documented by: Misoprostol (Misoprostol 100 Mcg Tab) 100 mcg PO QID [facility] Stop: 04/25/21 12:59 Last Admin: 03/27/21 13:09 Dose: 100 mcg Documented by: Multivitamins (Multivitamin Tab) 1 tab PO QAM [facility] Stop: 04/26/21 08:59 Last Admin: 03/27/21 09:26 Dose: 1 tab Documented by: Oxybutynin Chloride (Oxybutynin Chloride Xl 5 Mg Tabcr) 15 mg PO QAM [facility] Stop: 04/26/21 08:59 Last Admin: 03/27/21 09:25 Dose: 15 mg Documented by: Pantoprazole Sodium (Pantoprazole 40 Mg Tab) 40 mg PO DAILY [facility] Stop: 04/26/21 08:59 Last Admin: 03/27/21 09:26 Dose: 40 mg Documented by: Rosuvastatin Calcium (Rosuvastatin Calcium 20 Mg Tab) 40 mg PO QAM [facility] Stop: 04/26/21 08:59 Last Admin: 03/27/21 09:37 Dose: 40 mg Documented by: Triamterene/Hydrochlorothiazide (Triamterene/Hctz 37.5/25mg Tab) 1 tab PO DAILY [facility] Stop: 04/26/21 08:59 Last Admin: 03/27/21 09:26 Dose: 1 tab Documented by: (1) CAD (coronary artery disease) Coronary Disease-Associated Artery/Lesion type: [place] artery [place] vs. transplanted heart: [place] heart Associated angina: without angina Qualified Code(s): I25.10 - Atherosclerotic heart disease of [place] coronary artery withou t angina pectoris (2) Hypertension Hypertension type: essential hypertension Qualified Code(s): I10 - Essential (primary) hypertension (3) Hypothyroidism Hypothyroidism type: unspecified Qualified Code(s): E03.9 - Hypothyroidism, unspecified (4) Urinary incontinence Urinary Incontinence type: unspecified incontinence Qualified Code(s): R32 - Unspecified urinary incontinence (5) Depression Depression Type: unspecified Qualified Code(s): F32.9 - Major depressive disorder, single episode, unspecified
[2021-03-27] MEDS: MELATONIN 3 MG TAB PO PRN (22:47)
[2021-03-28] MEDS: LEVOTHYROXINE SODIUM 100 MCG TABLET PO SCH (06:08)
[2021-03-28 07:57] LABS: BUN Creatinine Ratio 29.1 (10-20); Calcium 9.7 mg/dl (8.5-10.1); Creatinine Clr Calc Pharmacy 28.4 ml/min; Est GFR (African American) 44.9 ml/min; Est GFR (Non-African American) 38.7 ml/min; Phosphorus 3.6 mg/dl (2.5-4.9); Potassium 3.9 mmol/L (3.5-5.1)
[2021-03-28] MEDS: PANTOprazole 40 MG TAB PO SCH (08:32)
[2021-03-28] MEDS: TRIAMTERENE/HCTZ 37.5/25MG TAB PO SCH ×2 (08:32→08:38)
[2021-03-28] MEDS: APIXABAN 2.5 MG TAB PO SCH ×2 (08:32→20:22)
[2021-03-28] MEDS: lisinopril 2.5 MG TAB PO SCH (08:32)
[2021-03-28] MEDS: ROSUVASTATIN CALCIUM 20 MG TAB PO SCH (08:32)
[2021-03-28] MEDS: MULTIVITAMIN TAB PO SCH (08:32)
[2021-03-28] MEDS: FERROUS SULFATE 325 MG TAB PO SCH (08:33)
[2021-03-28] MEDS: GABAPENTIN 800 MG TAB PO SCH ×3 (08:33→20:21)
[2021-03-28] MEDS: miSOPROStoL 100 MCG TAB PO SCH ×4 (08:33→20:20)
[2021-03-28] MEDS: METOPROLOL SUCC 25MG EXT REL TAB PO SCH (08:33)
[2021-03-28] MEDS: busPIRone 5 MG TAB PO SCH ×2 (08:33→20:21)
[2021-03-28] MEDS: OXYBUTYNIN CHLORIDE XL 5 MG TABCR PO SCH (08:34)
[2021-03-28] MEDS: METHOCARBAMOL 500 MG TABLET PO SCH ×3 (08:34→20:20)
--- NOTE | 2021-03-28 14:07 | Hospitalist Progress Note ---
Date of Service March 28, 2021 Assessment & Plan (1) BROUSSARD (dyspnea on exertion): (2) Shortness of breath: (3) Persistent atrial fibrillation: (4) Diastolic CHF with preserved left ventricular function, NYHA class 2: (5) CAD (coronary artery disease): (6) S/P CABG x 1: (7) Hypertension: (8) Chronic kidney disease stage 3: (9) Chronic osteoarthritis: (10) Hypothyroidism: (11) Urinary incontinence: (12) Mild aortic stenosis: (13) Depression: Plan: Shortness of Breath with BROUSSARD: -Pt did have elevated Pro-BNP on 03/15/21 (3539), however on exam and on imaging pt appeared euvolemic -Lungs CTA: no crackles and trace pitting edema on b/l LE -pt is in afib but rate controlled -csah pt is euvolemic will hold torsemide and continue Dyazide daily - will monitor the pt on tele and possible outpt holter monitor -Stric I/O, Daily weights - PT/OT eval: pt lives @ [facility] -Appreciate cardiology input and recommendation -Medications have been adjusted and the patient is ready to be discharged discharge as per cardiology -We will get PT and OT evaluation -recommended home -Mentally not yet ready to go home as she still gets short of breath with exertion -Likely be discharged tomorrow Persistent Afib: -will continue current metoprolol dose and eliquis - rate is controlled but on the upper side at 94--- 74 as of 03/28/2021 HFpEF: -pt is not volume overloaded -did receive 20mg of Lasix -since pt appeared euvolemic I do not think it is necessary to continue the pt on Lasix but continue her dyazide daily -cardiology consulted -appreciate input and recommendation -Medications have been updated-she will be discharged on Dyazide only DJD with chronic pain: -will continue her gabapentin 800mg TID and hydrocodone prn - due to CHF and CKD III I would recommend low dose of gabapentin: advised the pt to discuss with PCP Other chronic medical conditions: -continue home meds Diet:heart health DVT PPx: Eliquis Code Status: Full Code Emergency Contact: Nona Alonzo (Neighbour/Friend): [phone] Admission and Anticipated Discharge Date Admission Date: March 26, 2021 Subjective 03/27/2021 The patient was seen and examined in medical telemetry unit She denies any shortness of breath but complains to have extreme weakness and tiredness She has had OT therapy today and remains very tired to go home Denies any chest pain and/or palpitation 03/28/2021 The patient was seen and examined in medical telemetry unit She has been feeling much better and has had physical therapy Not yet ready to go home Has had some shortness of breath last night and is worried about that Review of Systems Review of Systems: All systems reviewed and are unremarkable except as noted below Respiratory: No shortness of breath at rest Cardiovascular: Additional Comments: No chest pain and/or palpitation Physical Exam Physical Exam: Sitting at the edge of the bed without any acute distress Constitutional: + ill appearing and + thin Eyes: PERRL, conjunctivae normal, anicteric sclerae ENMT: external ear and nose normal, oropharynx normal Respiratory: no respiratory distress Auscultation: lungs clear to auscultation bilaterally; no crackles Cardiovascular: Rate/Rhythm: + irregularly irregular; not tachycardic Heart Sounds: normal S1, normal S2 and + murmur (2/6 apical systolic murmur) Gastrointestinal (Abdomen): Inspection/Auscultation: normal bowel sounds; abdomen not distended Percussion/Palpation: abdomen soft; abdomen nontender Musculoskeletal: No acute arthritis in any joint Neurologic: Alert, awake and oriented x3. Generally weak but no focal sensory and/or motor deficit appreciated Results & Data Results & Data ([facility]) Vital Signs (Past 12 Hours) Vital Signs Temp Pulse Resp BP Pulse Ox 03/28/21 09:59 36.8 C 74 20 102/60 98 03/28/21 06:44 36.3 C L 58 L 90/58 L 98 03/28/21 04:29 36.7 C 70 16 108/72 95 Laboratory Results BMP 03/28/21 06:55 Sodium 138 Potassium 3.9 Chloride 105 Carbon Dioxide 28 BUN 37 H Creatinine 1.27 H D Glucose 96 Calcium 9.7 Medications Administered Current Inpatient Medications Hydrocodone Bitart/Acetaminophen (Hydrocodone/Acetaminophen 10/325 Tab) 1 tab PO Q6 PRN PRN Reason: Pain Stop: 04/09/21 11:14 Last Admin: 03/26/21 17:20 Dose: 1 tab Documented by: Apixaban (Apixaban 2.5 Mg Tab) 2.5 mg PO BID [facility] Stop: 04/25/21 20:59 Last Admin: 03/28/21 08:32 Dose: 2.5 mg Documented by: Buspirone HCl (Buspirone 5 Mg Tab) 10 mg PO BID [facility] Stop: 04/25/21 20:59 Last Admin: 03/28/21 08:33 Dose: 10 mg Documented by: Ferrous Sulfate (Ferrous Sulfate 325 Mg Tab) 325 mg PO QAM [facility] Stop: 04/26/21 08:59 Last Admin: 03/28/21 08:33 Dose: 325 mg Documented by: Gabapentin (Gabapentin 800 Mg Tab) 800 mg PO TID [facility] Stop: 04/25/21 13:59 Last Admin: 03/28/21 13:40 Dose: 800 mg Documented by: Hydroxyzine HCl (Hydroxyzine Hcl 25 Mg Tab) 50 mg PO Q8 PRN PRN Reason: Anxiety Stop: 04/25/21 16:42 Last Admin: 03/26/21 17:04 Dose: 50 mg Documented by: Levothyroxine Sodium (Levothyroxine Sodium 100 Mcg Tablet) 100 mcg PO DAILYBB [facility] Stop: 04/26/21 06:29 Last Admin: 03/28/21 06:08 Dose: 100 mcg Documented by: Lisinopril (Lisinopril 2.5 Mg Tab) 2.5 mg PO QAM [facility] Stop: 04/26/21 08:59 Last Admin: 03/28/21 08:32 Dose: Not Given Documented by: Melatonin (Melatonin 3 Mg Tab) 6 mg PO HS PRN PRN Reason: Insomnia Stop: 04/25/21 20:59 Last Admin: 03/27/21 22:47 Dose: 6 mg Documented by: Methocarbamol (Methocarbamol 500 Mg Tablet) 500 mg PO TID [facility] Stop: 04/25/21 13:59 Last Admin: 03/28/21 13:40 Dose: 500 mg Documented by: Metoprolol Succinate (Metoprolol Succ 25mg Ext Rel Tab) 25 mg PO DAILY [facility] Stop: 04/25/21 11:44 Last Admin: 03/28/21 08:33 Dose: Not Given Documented by: Misoprostol (Misoprostol 100 Mcg Tab) 100 mcg PO QID [facility] Stop: 04/25/21 12:59 Last Admin: 03/28/21 13:40 Dose: 100 mcg Documented by: Multivitamins (Multivitamin Tab) 1 tab PO QAM [facility] Stop: 04/26/21 08:59 Last Admin: 03/28/21 08:32 Dose: 1 tab Documented by: Oxybutynin Chloride (Oxybutynin Chloride Xl 5 Mg Tabcr) 15 mg PO QAM [facility] Stop: 04/26/21 08:59 Last Admin: 03/28/21 08:34 Dose: 15 mg Documented by: Pantoprazole Sodium (Pantoprazole 40 Mg Tab) 40 mg PO DAILY [facility] Stop: 04/26/21 08:59 Last Admin: 03/28/21 08:32 Dose: 40 mg Documented by: Rosuvastatin Calcium (Rosuvastatin Calcium 20 Mg Tab) 40 mg PO QAM [facility] Stop: 04/26/21 08:59 Last Admin: 03/28/21 08:32 Dose: 40 mg Documented by: Triamterene/Hydrochlorothiazide (Triamterene/Hctz 37.5/25mg Tab) 1 tab PO DAILY [facility] Stop: 04/26/21 08:59 Last Admin: 03/28/21 08:38 Dose: Not Given Documented by: (1) CAD (coronary artery disease) Coronary Disease-Associated Artery/Lesion type: [place] artery [place] vs. transplanted heart: [place] heart Associated angina: without angina Qualified Code(s): I25.10 - Atherosclerotic heart disease of [place] coronary artery without angina pectoris (2) Hypertension Hypertension type: essential hypertension Qualified Code(s): I10 - Essential (primary) hypertension (3) Hypothyroidism Hypothyroidism type: unspecified Qualified Code(s): E03.9 - Hypothyroidism, unspecified (4) Urinary incontinence Urinary Incontinence type: unspecified incontinence Qualified Code(s): R32 - Unspecified urinary incontinence (5) Depression Depression Type: unspecified Qualified Code(s): F32.9 - Major depressive disorder, single episode, unspecified
[2021-03-28] MEDS: MELATONIN 3 MG TAB PO PRN (22:21)
[2021-03-29] MEDS: LEVOTHYROXINE SODIUM 100 MCG TABLET PO SCH (06:20)
[2021-03-29] MEDS: APIXABAN 2.5 MG TAB PO SCH (08:54)
[2021-03-29] MEDS: OXYBUTYNIN CHLORIDE XL 5 MG TABCR PO SCH (08:55)
[2021-03-29] MEDS: GABAPENTIN 800 MG TAB PO SCH ×2 (08:55→13:53)
[2021-03-29] MEDS: ROSUVASTATIN CALCIUM 20 MG TAB PO SCH (08:55)
[2021-03-29] MEDS: MULTIVITAMIN TAB PO SCH (08:56)
[2021-03-29] MEDS: TRIAMTERENE/HCTZ 37.5/25MG TAB PO SCH (08:56)
[2021-03-29] MEDS: lisinopril 2.5 MG TAB PO SCH (08:56)
[2021-03-29] MEDS: FERROUS SULFATE 325 MG TAB PO SCH (08:56)
[2021-03-29] MEDS: busPIRone 5 MG TAB PO SCH (08:57)
[2021-03-29] MEDS: miSOPROStoL 100 MCG TAB PO SCH ×2 (08:57→13:53)
[2021-03-29] MEDS: PANTOprazole 40 MG TAB PO SCH (08:57)
[2021-03-29] MEDS: METOPROLOL SUCC 25MG EXT REL TAB PO SCH (08:57)
[2021-03-29] MEDS: METHOCARBAMOL 500 MG TABLET PO SCH ×2 (08:58→13:53)
--- NOTE | 2021-03-29 09:32 | Hospitalist Progress Note ---
Date of Service March 29, 2021 Assessment & Plan (1) BROUSSARD (dyspnea on exertion): (2) Shortness of breath: (3) Persistent atrial fibrillation: (4) Diastolic CHF with preserved left ventricular function, NYHA class 2: (5) CAD (coronary artery disease): (6) S/P CABG x 1: (7) Hypertension: (8) Chronic kidney disease stage 3: (9) Chronic osteoarthritis: (10) Hypothyroidism: (11) Urinary incontinence: (12) Mild aortic stenosis: (13) Depression: Plan: Shortness of Breath with BROUSSARD: Acute on chronic diastolic CHF -Pt did have elevated Pro-BNP on 03/15/21 (3539), however on exam and on imaging pt appeared euvolemic -Lungs CTA: no crackles and trace pitting edema on b/l LE -pt is in afib but rate controlled -cash pt is euvolemic will hold torsemide and continue Dyazide daily - will monitor the pt on tele and possible outpt holter monitor -Stric I/O, Daily weights - PT/OT eval: pt lives @ [facility]-independent living -Appreciate cardiology input and recommendation -Medications have been adjusted and the patient is ready to be discharged [facility] as per cardiology -We will get PT and OT evaluation -recommended home -Mentally not yet ready to go home as she still gets short of breath with exertion -She is physically and mentally ready to be discharged this afternoon -She will a follow-up appointment with the heart failure clinic on Sunday Persistent Afib: -will continue current metoprolol dose and eliquis - rate is controlled but on the upper side at 94--- 74 as of 03/28/2021 HFpEF: -Acute on chronic diastolic CHF -pt is not volume overloaded -did receive 20mg of Lasix -since pt appeared euvolemic I do not think it is necessary to continue the pt on Lasix but continue her dyazide daily -cardiology consulted -appreciate input and recommendation -Medications have been updated-she will be discharged on Dyazide only DJD with chronic pain: -will continue her gabapentin 800mg TID and hydrocodone prn - due to CHF and CKD III I would recommend low dose of gabapentin: advised the pt to discuss with PCP Other chronic medical conditions: -continue home meds Diet:heart health DVT PPx: Eliquis Code Status: Full Code Emergency Contact: Nona Rosado (Neighbour/Friend): [phone] Admission and Anticipated Discharge Date Admission Date: March 28, 2021 Subjective 03/27/2021 The patient was seen and examined in medical telemetry unit She denies any shortness of breath but complains to have extreme weakness and tiredness She has had OT therapy today and remains very tired to go home Denies any chest pain and/or palpitation 03/28/2021 The patient was seen and examined in medical telemetry unit She has been feeling much better and has had physical therapy Not yet ready to go home Has had some shortness of breath last night and is worried about that 03/29/2021 The patient was seen and examined in medical telemetry unit She has been feeling much better and will be discharged home this afternoon Denies any symptoms except mild weakness Review of Systems Review of Systems: All systems reviewed and are unremarkable except as noted below Respiratory: No shortness of breath at rest Cardiovascular: Additional Comments: No chest pain and/or palpitation Physical Exam Physical Exam: Sitting at the edge of the bed without any acute distress Constitutional: + ill appearing and + thin Eyes: PERRL, conjunctivae normal, anicteric sclerae ENMT: external ear and nose normal, oropharynx normal Respiratory: no respiratory distress Auscultation: lungs clear to auscultation bilaterally; no crackles Cardiovascular: Rate/Rhythm: + irregularly irregular; not tachycardic Heart Sounds: normal S1, normal S2 and + murmur (2/6 apical systolic murmur) Gastrointestinal (Abdomen): Inspection/Auscultation: normal bowel sounds; abdomen not distended Percussion/Palpation: abdomen soft; abdomen nontender Musculoskeletal: No acute arthritis in any joint Neurologic: Alert, awake and oriented x3. No focal sensory and motor deficit appreciated Results & Data Results & Data ([facility]) Vital Signs (Past 12 Hours) Vital Signs Temp Pulse Pulse Resp BP BP Pulse Ox 03/29/21 07:49 36.6 C 70 18 133/74 97 03/29/21 07:26 72 03/29/21 03:09 36.9 C 79 16 109/64 96 03/28/21 23:00 83 03/28/21 22:51 36.6 C 95 H 18 100/63 94 Medications Administered Current Inpatient Medications Hydrocodone Bitart/Acetaminophen (Hydrocodone/Acetaminophen 10/325 Tab) 1 tab PO Q6 PRN PRN Reason: Pain Stop: 04/09/21 11:14 Last Admin: 03/26/21 17:20 Dose: 1 tab Documented by: Apixaban (Apixaban 2.5 Mg Tab) 2.5 mg PO BID [facility] Stop: 04/25/21 20:59 Last Admin: 03/29/21 08:54 Dose: 2.5 mg Documented by: Buspirone HCl (Buspirone 5 Mg Tab) 10 mg PO BID [facility] Stop: 04/25/21 20:59 Last Admin: 03/29/21 08:57 Dose: 10 mg Documented by: Ferrous Sulfate (Ferrous Sulfate 325 Mg Tab) 325 mg PO QAM [facility] Stop: 04/26/21 08:59 Last Admin: 03/29/21 08:56 Dose: 325 mg Documented by: Gabapentin (Gabapentin 800 Mg Tab) 800 mg PO TID [facility] Stop: 04/25/21 13:59 Last Admin: 03/29/21 08:55 Dose: 800 mg Documented by: Hydroxyzine HCl (Hydroxyzine Hcl 25 Mg Tab) 50 mg PO Q8 PRN PRN Reason: Anxiety Stop: 04/25/21 16:42 Last Admin: 03/26/21 17:04 Dose: 50 mg Documented by: Levothyroxine Sodium (Levothyroxine Sodium 100 Mcg Tablet) 100 mcg PO DAILYBB [facility] Stop: 04/26/21 06:29 Last Admin: 03/29/21 06:20 Dose: 100 mcg Documented by: Lisinopril (Lisinopril 2.5 Mg Tab) 2.5 mg PO QAM [facility] Stop: 04/26/21 08:59 Last Admin: 03/29/21 08:56 Dose: 2.5 mg Documented by: Melatonin (Melatonin 3 Mg Tab) 6 mg PO HS PRN PRN Reason: Insomnia Stop: 04/25/21 20:59 Last Admin: 03/28/21 22:21 Dose: 6 mg Documented by: Methocarbamol (Methocarbamol 500 Mg Tablet) 500 mg PO TID [facility] Stop: 04/25/21 13:59 Last Admin: 03/29/21 08:58 Dose: 500 mg Documented by: Metoprolol Succinate (Metoprolol Succ 25mg Ext Rel Tab) 25 mg PO DAILY [facility] Stop: 04/25/21 11:44 Last Admin: 03/29/21 08:57 Dose: 25 mg Documented by: Misoprostol (Misoprostol 100 Mcg Tab) 100 mcg PO QID [facility] Stop: 04/25/21 12:59 Last Admin: 03/29/21 08:57 Dose: 100 mcg Documented by: Multivitamins (Multivitamin Tab) 1 tab PO QAM [facility] Stop: 04/26/21 08:59 Last Admin: 03/29/21 08:56 Dose: 1 tab Documented by: Oxybutynin Chloride (Oxybutynin Chloride Xl 5 Mg Tabcr) 15 mg PO QAM [facility] Stop: 04/26/21 08:59 Last Admin: 03/29/21 08:55 Dose: 15 mg Documented by: Pantoprazole Sodium (Pantoprazole 40 Mg Tab) 40 mg PO DAILY [facility] Stop: 04/26/21 08:59 Last Admin: 03/29/21 08:57 Dose: 40 mg Documented by: Rosuvastatin Calcium (Rosuvastatin Calcium 20 Mg Tab) 40 mg PO QAM [facility] Stop: 04/26/21 08:59 Last Admin: 03/29/21 08:55 Dose: 40 mg Documented by: Triamterene/Hydrochlorothiazide (Triamterene/Hctz 37.5/25mg Tab) 1 tab PO DAILY [facility] Stop: 04/26/21 08:59 Last Admin: 03/29/21 08:56 Dose: 1 tab Documented by: (1) Urinary incontinence Urinary Incontinence type: unspecified incontinence Qualified Code(s): R32 - Unspecified urinary incontinence (2) CAD (coronary artery disease) Associated angina: without angina Coronary Disease-Associated Artery/Lesion type: [place] artery [place] vs. transplanted heart: [place] heart Qualified Code(s): I25.10 - Atherosclerotic heart disease of [place] coronary artery without angina pectoris (3) Depression Depression Type: unspecified Qualified Code(s): F32.9 - Major depressive disorder, single episode, unspecified (4) Hypothyroidism Hypothyroidism type: unspecified Qualified Code(s): E03.9 - Hypothyroidism, unspecified (5) Hypertension Hypertension type: essential hypertension Qualified Code(s): I10 - Essential (primary) hypertension
[2021-03-29 11:38] VITALS: TEMP 97.3; O2SAT 95
[2021-03-29 13:37] VITALS: BP 109/64; PULSE 74
--- NOTE | 2021-03-29 19:06 | Discharge Summary ---
Date of Service March 29, 2021 Admission HPI Per Admitting Provider Pt is a 82 y/o F with hx of persistent Afib (on eliquis), HFpEF, CAD s/p CABG, Mild , HLD, hypothyroidism, GERD, HTN, CKD III, DDD, Migraine, anxiety, depression, insomnia, urinary incontinence brought into the ER via ambulance for BROUSSARD. Per pt she woke up at 3 am with SOB which worsens with walking. She denied any CP, diaphoresis, dizziness or any GI symptoms. -per pt she had severe leg swelling few weeks ago which improved with taking Torsemide 10mg. However she denied any recent worsening LE edema, Orthopnea or intake of prednisone. - per pt she does not take Triamterene-HCTZ but was told to take torsemide daily. However per photoflash powder mixer note (Dr. Adams): her Triamterene-HCTZ was changed to every other day during clinic visit on 03/22/21 because pt appeared euvolemic and her weight was better than recent admission. Echo (02/2021): EF of 60-65%, LVH, Mild and Mild AR Dry weight: 60 kg ([facility] chart review) Admission Exam Per Admitting Provider Physical Exam: General:.NAD, well developed, well nourished, average body habitus HEENT:.Normocephalic and atraumatic, Normal Conjunctiva, EOMI, Sclera is non- icteric Lungs:.No signs of respiratory distress, CTA, no wheezing or crackles Heart:.systolic murmur, in afib Abdominal:.ND, Soft, NT MSK:.trace pitting edema of distal b/l LE Psych:.AAOx3, normal affect Principal Diagnosis Acute on chronic diastolic heart failure, atrial fibrillation, osteoarthritis Discharge Exam Sitting at the edge of the bed without any acute distress Constitutional + ill appearing and + thin Eyes PERRL, conjunctivae normal, anicteric sclerae ENMT external ear and nose normal, oropharynx normal Respiratory no respiratory distress Auscultation: lungs clear to auscultation bilaterally; no crackles Cardiovascular Rate/Rhythm: + irregularly irregular; not tachycardic Heart Sounds: normal S1, normal S2 and + murmur (2/6 apical systolic murmur) Gastrointestinal (Abdomen) Inspection/Auscultation: normal bowel sounds; abdomen not distended Percussion/Palpation: abdomen soft; abdomen nontender Discharge Data Allergies Allergy/AdvReac Type Severity Reaction Status Date / Time nitroglycerin AdvReac Severe "PROJECTILE Verified 03/22/21 14:32 VOMITTING" ergotamine AdvReac Intermediate vomiting Verified 03/22/21 14:32 Consultations 03/26/21 09:03 ED Decision to Admit Stat 03/26/21 11:15 Consult Cardiology Routine Hospital Course (1) BROUSSARD (dyspnea on exertion): (2) Shortness of breath: (3) Persistent atrial fibrillation: (4) Diastolic CHF with preserved left ventricular function, NYHA class 2: (5) CAD (coronary artery disease): (6) S/P CABG x 1: (7) Hypertension: (8) Chronic kidney disease stage 3: (9) Chronic osteoarthritis: (10) Hypothyroidism: (11) Urinary incontinence: (12) Mild aortic stenosis: (13) Depression: Shortness of Breath with BROUSSARD: Acute on chronic diastolic CHF -Pt did have elevated Pro-BNP on 03/15/21 (3539), however on exam and on imaging pt appeared euvolemic -Lungs CTA: no crackles and trace pitting edema on b/l LE -pt is in afib but rate controlled -cash pt is euvolemic will hold torsemide and continue Dyazide daily - will monitor the pt on tele and possible outpt holter monitor -Stric I/O, Daily weights - PT/OT eval: pt lives @ [facility] -Appreciate cardiology input and recommendation -Medications have been adjusted and the patient is ready to be discharged discharge as per cardiology -We will get PT and OT evaluation -recommended home -Mentally not yet ready to go home as she still gets short of breath with exertion -She is physically and mentally ready to be discharged this afternoon -She will a follow-up appointment with the heart failure clinic on Sunday Persistent Afib: -will continue current metoprolol dose and eliquis - rate is controlled but on the upper side at 94--- 74 as of 03/28/2021 HFpEF: -Acute on chronic diastolic CHF -pt is not volume overloaded -did receive 20mg of Lasix -since pt appeared euvolemic I do not think it is necessary to continue the pt on Lasix but continue her dyazide daily -cardiology consulted -appreciate input and recommendation -Medications have been updated-she will be discharged on Dyazide only DJD with chronic pain: -will continue her gabapentin 800mg TID and hydrocodone prn - due to CHF and CKD III I would recommend low dose of gabapentin: advised the pt to discuss with PCP Other chronic medical conditions: -continue home meds Diet:heart health DVT PPx: Eliquis Code Status: Full Code Emergency Contact: Nona Rosado (Neighbour/Friend): [phone] Total Time Total Time Spent Total Time Spent (In Minutes): 35 minutes Discharge Plan Discharge Items Patient Disposition: Home - Home Health Services Reason For Visit: BROUSSARD Discharge Diagnosis: Acute on chronic diastolic heart failure, atrial fibrillation, osteoarthritis Condition on Discharge: Fair Activity: Resume your previous activity Non-emergency contact: Primary Care Provider Call non-emergency contact if: you have any medication questions and your symptoms worsen Follow-up/Referrals: [facility] [Other] (Date & Time 03/30/2021 2:00 PM Provider Lana Lieberman RN [facility], [facility] ) Maia Damian PA-C [Physician Direct Support Specialist] - 04/04/21 10:30 am (Congestive Heart Failure Program Appointment Information Early follow up is essential to managing your heart failure. An appointment has been scheduled for you with the [facility] Heart Failure Program within 7 days of discharge. Anticipate this visit to be 30-60 minutes long. Please expect a admitting office escort phone call from one of our nurses approximately 48 hours from discharge. They will also be placing an order for lab work to be completed 1-2 days prior to your heart failure follow up appointment. Please be sure to have this done so we can go over the results when you come in. Office Location The cardiology office building is located in front of the hospital at [address] [facility]. Bring the following with you to your follow-up doctor appointments: Please bring your daily weight log any discharge paperwork all of your medication bottles with you to this visit. ) Con Coughlin MD [Primary Care Provider] - (Date & Time 03/31/2021 12:20 PM Provider Con Coughlin MD Department Family Medicine [facility] ) Diet: Heart Healthy and Low Sodium (2gm) Addtl Attending Provider Instructions: Please take precautions to avoid falls Take your medications as advised Please discuss with your primary care physician to decrease the dose of gabapentin given the history of CHF Keep appointments with your healthcare provider Addtl Highway Inspector Provider Instructions: Call your Primary Care doctor if any of the following symptoms or problems start or get worse: * Shortness of breath or difficulty breathing * Wake up at night short of breath * Chest pain * Cough * Swelling of your hands, feet, or legs * More fatigued or tired with your normal activity * Palpitations - sudden fast heart beats WEIGHT * Weigh yourself every morning after using the bathroom. * Use the same scale. * Wear the same amount of clothing. * Write your weight down on a chart. * Call your Primary Care doctor if you gain more than 2-3 pounds in 1-2 days. MEDICATIONS * Use this discharge instruction sheet for medication instructions. * Take your medications at the time your doctor ordered. * Do not skip a dose of your medicines. * If you miss a dose of medicine, take it as soon as possible, but DO NOT DOUBLE A DOSE. * Read your medicine information when you get home. * Know all of the side effects of your medicine. If in doubt, ask your pharmacist * Call your Primary Care doctor's office if you have any side effects. * Be sure all of your doctors know what medicine and herbs you take (including cold, flu, and herbal medicine). Take the following with you to your follow-up doctor appointments: * Weight Chart * Medication List * List of questions Do not drink excessive alcohol, beer or wine. Pending Studies at Discharge: No Stand-Alone Forms: My [facility], Smoking Cessation Medications and DC Order Prescriptions: Continued multivitamin tablet 1 tab PO QAM RF: 0 methocarbamol 500 mg tablet 500 mg PO TID Qty: 270 RF: 3 buspirone 10 mg tablet 10 mg PO BID Qty: 60 RF: 5 Eliquis 2.5 mg tablet 2.5 mg PO BID Qty: 180 RF: 0 misoprostol 100 mcg Tablet 100 mcg PO QID RF: 0 levothyroxine [Levoxyl] 100 mcg Tablet 100 mcg PO DAILYBB RF: 0 gabapentin 800 mg Tablet 800 mg PO TID RF: 0 pantoprazole [Protonix] 40 mg Tablet,Delayed Release (Dr/Ec) 40 mg PO DAILY RF: 0 ferrous sulfate 325 mg (65 mg iron) Tablet 325 mg PO QAM RF: 0 lisinopril 2.5 mg Tablet 2.5 mg PO QAM RF: 0 rosuvastatin [Crestor] 40 mg Tablet 40 mg PO QAM RF: 0 metoprolol succinate 25 mg tablet extended release 24 hr 25 mg PO DAILY RF: 0 oxybutynin chloride 15 mg tablet extended release 24 hr 15 mg PO QAM RF: 0 lidocaine 4 % Adhesive Patch,Medicated 1 patch TOPICAL DAILY PRN (Reason: Pain) RF: 0 ondansetron HCl 4 mg Tablet 4 mg PO Q6H PRN (Reason: Nausea) RF: 0 melatonin 5 mg Tablet 5 mg PO HS PRN (Reason: Insomnia) RF: 0 hydrocodone-acetaminophen 10-325 mg Tablet 1 tab PO Q6 PRN (Reason: Pain) RF: 0 Changed triamterene-hydrochlorothiazid 37.5-25 mg tablet 1 tab PO DAILY Qty: 30 RF: 0 Discontinued torsemide 10 mg Tablet 10 mg PO DAILY PRN (Reason: swelling) RF: 0 Discharge Orders: Discharge Order (Routine); Ordered 03/29/21 Ordered By: Abelardo Fallon Admission Data Admit Date/Time: 03/28/21 14:14 Attending Provider: Abelardo Fallon Admit Provider: Gilbert Calloway Primary Care Provider: Con Coughlin Other Providers: Gilbert Calloway ; [facility] Other Interventions: Discharge Summary Assessment (RN) Last Done: 03/29/21 13:33
== END 2021-03-29 14:57 | disposition home health service (06) | DRG 291 ==
LOC: ED 03:56 → 2N 03:56 → SUATTDRO 09:27 → 2N 11:13

== ENCOUNTER 2021-05-07 15:01 | Inpatient (IN) ==
[2021-05-07] MEDS ORDERED: SODIUM CHLORIDE 0.9% 1000ML 1,000 ML IV SCH (15:15)
--- NOTE | 2021-05-07 15:17 | Emergency Department Note ---
Impression & Plan Hypotension, KIM (acute kidney injury), Weakness ED Provider Note NAME: Marquez LEACH AGE: 82 SEX: F : 11/14/1938 ARRIVES VIA: Ambulance INFORMANT: Patient, ED PROVIDER(S): Delmar Bar DO CHIEF COMPLAINT: Weakness HPI: The patient is an 82-year-old female who presented to the emergency department by ambulance for an evaluation of weakness. The patient states that she slid out of her chair onto the floor and was unable to stand. She denies having any nausea or vomiting. She states that she had a headache last week but at this time has no headache. She denies having any pain. She states she did not injure herself. She denies having any back pain. She denies having any dysuria or frequency. She is noticed no black or bloody bowel movement. She notices no fevers. The patient states that she wanted to stay at her personal correction but because of her weakness the staff asked her to go to the emergency department for further evaluation. The patient states that she has had similar symptoms in the past. She does have a history of heart surgery as well as TIA in the past. She does take blood thinners for chronic atrial fibrillation. She states that she normally has normal blood pressure with a systolic in the 120 range. She states that she was noted to have a slightly elevated blood pressure this morning when she was at the medical providers office. The patient does admit that she has not been eating or drinking as well as normal. ROS: See above HPI for pertinent positives & negatives. A total of 10 systems reviewed and were otherwise negative. PAST MEDICAL HISTORY: See Below PAST SURGICAL HISTORY: See Below FAMILY HISTORY: See Below SOCIAL HISTORY: See Below HOME MEDICATIONS: See Below ALLERGIES: See Below VITALS: See Below PHYSICAL EXAMINATION: GENERAL: Patient is awake alert in no acute distress patient is resting comfortably and showing no signs of anxiety EYES: The conjunctivae are clear. The pupils are round and reactive. EARS, NOSE, MOUTH AND THROAT: The nose is without any evidence of any deformity. NECK: The neck is nontender and supple. RESPIRATORY: Normal respiratory effort is noted there is no evidence of wheezing rhonchi or rales CARDIOVASCULAR: Irregular heart sounds are noted auscultation. There is no definite murmur. GASTROINTESTINAL: The abdomen is soft. Abdomen is nontender. MUSCULOSKELETAL/EXTREMITIES: There is no evidence of gross deformity full range of motion is noted in the hips and shoulders. SKIN: There is no obvious evidence of any rash. There are no petechiae, pallor or cyanosis noted. NEUROLOGIC: Patient is awake alert and oriented x3. Strength is symmetric. Patient is able to hold each leg off the bed for greater than 5 seconds. MEDICAL DECISION MAKING: Patient is an 82-year-old female who presented to the emergency department for an evaluation of generalized weakness. The patient slid out of a chair. She did not hurt her self but she was on the floor and could not stand up. She was noted to have hypotension. She was treated with IV fluids in the emergency department. She was reevaluated multiple times. I discussed the patient's laboratory and radiographic studies with her. She was found to have an elevation in her creatinine compared to baseline. This would be concerning and the patient states that she has not been eating or drinking. There is the patient's findings [facility] agreed to evaluate the patient in the emergency department for further management and disposition. Triage Nursing notes reviewed. Prior medical records reviewed Vital Signs: reviewed and remarkable for initial hypotension Differential diagnosis: Infection, dehydration, metabolic abnormality, hypo/hyperglycemia, electrolyte disturbance, anemia, hypoxia, cardiac sources, intracerebral event, toxicologic, neurologic, as well as other pathologies. ER treatment provided: See below Diagnostics interpreted by me: ECG: EKG was obtained in the emergency department. My interpretation is atrial fibrillation at [address] segment abnormalities were noted. This was compared to a tracing from March 262021. No changes were noted. Cardiac Monitoring: An order was placed for continuous cardiac monitoring. The monitor shows a rate of 73 bpm with atrial fibrillation. Laboratory studies: As stated above and show below. Imaging studies: See below Consultation(s): I discussed this case with Man[facility] They have agreed to evaluate the patient in the emergency department. Past Med/Surg History Medical History Acid reflux OCCASIONAL Arthritis Chronic back pain Chronic kidney disease stage 3 Depression Dyslipidemia History of blood transfusion 2012 2/2 GASTRIC ULCER History of gastric ulcer 2012 Hypertension Hypothyroidism Osteoarthritis Spinal stenosis Transient ischemic attack (TIA) ~2012>REASON FOR PLAVIX Surgical History H/O bilateral salpingo-oophorectomy with hyter History of abdominoplasty PANNICULECTOMY History of arthroplasty of left hip History of arthroplasty of left shoulder History of arthroplasty of right hip History of cardiac cath NO STENTS History of colonoscopy History of coronary artery bypass graft 1998 (1 VESSEL) History of esophagogastroduodenoscopy (EGD) History of hysterectomy with oophorectomy History of tonsillectomy and adenoidectomy S/P epidural steroid injection S/p reverse total shoulder arthroplasty RT/LEFT Family History Father , age 74 Allergic reaction Mother , 80s CHF (congestive heart failure) Other No family history of adverse response to anesthesia Social History Smoking Status: Never smoker Second Hand Exposure: No; Hx Alcohol Use: No Hx Substance Use: No Preferred Language: Amharic Communication Ability: Effective Visual Impairment: No Limitations Gas Engineer Required: No Beliefs That Will Affect Care: Oriental Orthodox Oriental Orthodox Beliefs: Confucianist marital status: Single Current Living Situation: Alone Current Living Situation Comment: [facility] How many Children do You have: 0 Feels Safe at Home: Yes Assistive Devices: Walker Allergies Allergies Allergy/AdvReac Type Severity Reaction Status Date / Time nitroglycerin AdvReac Severe "PROJECTILE Verified 05/07/21 17:15 VOMITTING" ergotamine AdvReac Intermediate vomiting Verified 05/07/21 17:15 Home Meds Home Medications Medication Instructions Recorded Confirmed ferrous sulfate 325 mg (65 mg 325 mg PO QAM 01/23/18 05/07/21 iron) tablet levothyroxine 100 mcg tablet 100 mcg PO DAILYBB 01/23/18 05/07/21 (Levoxyl) lisinopril 2.5 mg tablet 2.5 mg PO QAM 01/23/18 05/07/21 pantoprazole 40 mg tablet,delayed 40 mg PO DAILY 01/23/18 05/07/21 release (Protonix) rosuvastatin 40 mg tablet (Crestor) 40 mg PO QAM 01/23/18 05/07/21 multivitamin 1 tab PO QAM 11/11/18 05/07/21 misoprostol 100 mcg tablet 100 mcg PO QID 11/17/19 05/07/21 metoprolol succinate 25 mg 25 mg PO DAILY 10/22/20 05/07/21 tablet,extended release 24 hr oxybutynin chloride 15 mg 15 mg PO QAM 10/22/20 05/07/21 tablet,extended release 24 hr melatonin 5 mg tablet 5 mg PO HS PRN 03/01/21 05/07/21 hydrocodone 10 mg-acetaminophen 1 tab PO Q6 PRN 03/26/21 05/07/21 325 mg tablet gabapentin 300 mg capsule 300 mg PO BID 05/07/21 05/07/21 hydrochlorothiazide 25 mg tablet 25 mg PO 2XWK 05/07/21 05/07/21 triamterene 37.5 1 tab PO QAM 05/07/21 05/07/21 mg-hydrochlorothiazide 25 mg tablet zolpidem 5 mg tablet 5 mg PO HS PRN 05/07/21 05/07/21 Previous Rx's Medication Instructions Recorded methocarbamol 500 mg tablet 500 mg PO TID #270 tab 05/24/20 apixaban 2.5 mg tablet (Eliquis) 2.5 mg PO BID #180 tab 03/22/21 buspirone 10 mg tablet 10 mg PO BID #60 tab 03/22/21 Results & Data (ED) Vital Signs Vital Signs - 24 hr 05/07/21 15:03 05/07/21 15:18 05/07/21 15:45 Temperature 36.7 C Temperature Source Oral Pulse Rate 80 69 Pulse Rate [Apical] Respiratory Rate 15 12 Blood Pressure 87/50 L Blood Pressure [Left Arm] 95/54 L Blood Pressure Mean 62 Blood Pressure Mean [Left Arm] 67 Pulse Oximetry 97 98 Oxygen Delivery Method Room Air Room Air Sepsis Recent Fever Within 48 Hours No Sepsis New/Unexplained Change in Mental Status N/A Sepsis Action Taken by Nursing No Action Required 05/07/21 17:03 05/07/21 19:00 Temperature Temperature Source Pulse Rate Pulse Rate [Apical] 75 73 Respiratory Rate 18 Blood Pressure Blood Pressure [Left Arm] 106/69 133/78 Blood Pressure Mean Blood Pressure Mean [Left Arm] 81 96 Pulse Oximetry 98 Oxygen Delivery Method Room Air Sepsis Recent Fever Within 48 Hours Sepsis New/Unexplained Change in Mental Status Sepsis Action Taken by Skilled Nursing Medications Current Medication List: was personally reviewed by me Laboratory Data Attestation: I reviewed the patient's lab results. Result diagrams: 05/07/21 15:04 05/07/21 15:04 Lab Results 05/07/21 05/07/21 05/07/21 Range/Units 15:04 15:04 15:04 WBC 6.79 (4.8-10.8) K/uL RBC 3.55 L (4.2-5.4) M/uL Hgb 10.8 L (12.0-16.0) g/dL Hct 33.5 L (37-47) % MCV 94.4 (80-100) fL MCH 30.4 (25-34) pg MCHC 32.2 (32-36) g/dL RDW Std Deviation 51.0 H (36.4-46.3) fL RDW Coeff of Howie 14.8 H (11.5-14.5) % Plt Count 183 (130-400) K/uL MPV 9.6 (7.4-10.4) fL Immature Gran % (Auto) 0.1 % Neut % (Auto) 48.0 % Lymph % (Auto) 40.1 % Moody % (Auto) 9.3 % Eos % (Auto) 2.1 % Baso % (Auto) 0.4 % Neut # (Auto) 3.26 (1.4-6.5) K/uL Lymph # (Auto) 2.72 (1.2-3.4) K/uL Moody # (Auto) 0.63 H (0.11-0.59) K/uL Eos # (Auto) 0.14 (0-0.5) K/uL Baso # (Auto) 0.03 (0-0.2) K/uL Immature Gran # (Auto) 0.01 (0.00-0.02) K/uL Ovalocytes 1+ PT 11.9 (9.0-12.0) Seconds INR 1.1 (0.9-1.1) APTT 26.7 (21.0-31.0) Seconds PTT Ratio 1.0 Sodium 137 (136-145) mmol/L Potassium 4.3 (3.5-5.1) mmol/L Chloride 107 (98-107) mmol/L Carbon Dioxide 25 (21-32) mmol/L Anion Gap 5 (3-11) BUN 45 H (6-23) mg/dl Creatinine 2.20 H (0.6-1.2) mg/dl Est Cr Clr Drug Dosing 16.1 ml/min Est GFR ( Amer) 23.1 ml/min Est GFR (Non-Af Amer) 19.9 ml/min BUN/Creatinine Ratio 20.5 H (10-20) Glucose 74 (70-99(Fasting)) mg/dl Calcium 8.9 (8.5-10.1) mg/dl Magnesium 1.8 (1.7-2.4) mg/dl Total Bilirubin 0.3 (0.2-1.0) mg/dl AST 14 (13-39) U/L ALT 11 (7-52) U/L Alkaline Phosphatase 58 (34-104) U/L Troponin I < 0.03 (0-0.04) ng/ml Total Protein 6.3 (6.0-8.3) gm/dl Albumin 3.5 (3.4-5.0) gm/dl Globulin 2.8 (2.5-4.0) gm/dl Albumin/Globulin Ratio 1.3 (0.9-2) TSH (0.300-4.500) uIu/ml SARS-CoV-2, RNA, NAAT (NEGATIVE) 05/07/21 05/07/21 Range/Units 15:04 16:47 WBC (4.8-10.8) K/uL RBC (4.2-5.4) M/uL Hgb (12.0-16.0) g/dL Hct (37-47) % MCV (80-100) fL MCH (25-34) pg MCHC (32-36) g/dL RDW Std Deviation (36.4-46.3) fL RDW Coeff of Howie (11.5-14.5) % Plt Count (130-400) K/uL MPV (7.4-10.4) fL Immature Gran % (Auto) % Neut % (Auto) % Lymph % (Auto) % Moody % (Auto) % Eos % (Auto) % Baso % (Auto) % Neut # (Auto) (1.4-6.5) K/uL Lymph # (Auto) (1.2-3.4) K/uL Moody # (Auto) (0.11-0.59) K/uL Eos # (Auto) (0-0.5) K/uL Baso # (Auto) (0-0.2) K/uL Immature Gran # (Auto) (0.00-0.02) K/uL Ovalocytes PT (9.0-12.0) Seconds INR (0.9-1.1) APTT (21.0-31.0) Seconds PTT Ratio Sodium (136-145) mmol/L Potassium (3.5-5.1) mmol/L Chloride (98-107) mmol/L Carbon Dioxide (21-32) mmol/L Anion Gap (3-11) BUN (6-23) mg/dl Creatinine (0.6-1.2) mg/dl Est Cr Clr Drug Dosing ml/min Est GFR ( Amer) ml/min Est GFR (Non-Af Amer) ml/min BUN/Creatinine Ratio (10-20) Glucose (70-99(Fasting)) mg/dl Calcium (8.5-10.1) mg/dl Magnesium (1.7-2.4) mg/dl Total Bilirubin (0.2-1.0) mg/dl AST (13-39) U/L ALT (7-52) U/L Alkaline Phosphatase (34-104) U/L Troponin I (0-0.04) ng/ml Total Protein (6.0-8.3) gm/dl Albumin (3.4-5.0) gm/dl Globulin (2.5-4.0) gm/dl Albumin/Globulin Ratio (0.9-2) TSH 3.347 (0.300-4.500) uIu/ml SARS-CoV-2, RNA, NAAT NEGATIVE (NEGATIVE) Administered Medications Sodium Chloride (Nss 1000ml) 1,000 mls @ 125 mls/hr IV .Q8H YAN Stop: 05/08/21 17:29 Last Admin: 05/07/21 17:53 Dose: 125 mls/hr Documented by: [id number] Discontinued Medications Sodium Chloride (Nss 1000ml) 1,000 mls @ 999 mls/hr IV .Q1H1M YAN Stop: 05/07/21 16:15 Last Infusion: 05/07/21 16:18 Dose: 0 mls/hr Documented by: [id number] Admin: 05/07/21 15:17 Dose: 999 mls/hr Documented by: [id number] Sodium Chloride (Nss 1000ml) 500 mls @ 999 mls/hr IV .Q31M ONE Stop: 05/07/21 16:52 Last Infusion: 05/07/21 17:17 Dose: 0 mls/hr Documented by: [id number] Admin: 05/07/21 16:41 Dose: 999 mls/hr Documented by: [id number] Imaging Data Radiologist's Impression: Chest X-Ray 05/07/21 15:11 XR chest 1V portable CLINICAL HISTORY: weakness COMPARISON STUDY: Chest CT October 28, 2020. Chest radiograph March 26, 2021. FINDINGS: Bilateral shoulder arthroplasties and median sternotomy wires are noted. Cardiomegaly is unchanged. There are several old right rib fractures. No pneumothorax or pleural effusion is present. There is no consolidation or evidence for pulmonary edema. Right lower lung densities may reflect scarring. IMPRESSION: No acute cardiopulmonary findings. Cardiomegaly. ACT 112: Negative or not required by law. Electronically signed by: Anthony Borden M.D. 05/07/2021 3:29 PM Discharge Plan Visit Data Chief Complaint: Fall Stated Complaint: WEAKNESS, UNABLE TO AMBULATE, HYPOTENSION ED Provider: Delmar Bar Discharge Problem: Hypotension, KIM (acute kidney injury), Weakness Patient Disposition: Being Evaluated by Hospitalist Forms Stand Alone Forms: [facility] Prescriptions Prescriptions: No Action multivitamin tablet 1 tab PO QAM RF: 0 methocarbamol 500 mg tablet 500 mg PO TID Qty: 270 RF: 3 buspirone 10 mg tablet 10 mg PO BID Qty: 60 RF: 5 Eliquis 2.5 mg tablet 2.5 mg PO BID Qty: 180 RF: 0 misoprostol 100 mcg Tablet 100 mcg PO QID RF: 0 levothyroxine [Levoxyl] 100 mcg Tablet 100 mcg PO DAILYBB RF: 0 pantoprazole [Protonix] 40 mg Tablet,Delayed Release (Dr/Ec) 40 mg PO DAILY RF: 0 ferrous sulfate 325 mg (65 mg iron) Tablet 325 mg PO QAM RF: 0 lisinopril 2.5 mg Tablet 2.5 mg PO QAM RF: 0 rosuvastatin [Crestor] 40 mg Tablet 40 mg PO QAM RF: 0 metoprolol succinate 25 mg tablet extended release 24 hr 25 mg PO DAILY RF: 0 oxybutynin chloride 15 mg tablet extended release 24 hr 15 mg PO QAM RF: 0 melatonin 5 mg Tablet 5 mg PO HS PRN (Reason: Insomnia) RF: 0 hydrocodone-acetaminophen 10-325 mg Tablet 1 tab PO Q6 PRN (Reason: Pain) RF: 0 zolpidem 5 mg tablet 5 mg PO HS PRN (Reason: Sleep) RF: 0 triamterene-hydrochlorothiazid 37.5-25 mg tablet 1 tab PO QAM RF: 0 gabapentin 300 mg capsule 300 mg PO BID RF: 0 hydrochlorothiazide 25 mg tablet 25 mg PO 2XWK RF: 0 Referrals Referrals: Con Coughlin MD [Primary Care Provider] -
[2021-05-07 15:23] LABS: Hematocrit (blood only) 33.5 % (37-47); Hemoglobin 10.8 g/dL (12.0-16.0); Mean Corpuscular Hemoglobin 30.4 pg (25-34); Mean Corpuscular Hgb Conc 32.2 g/dL (32-36); Mean Corpuscular Volume 94.4 fL (80-100); Mean Platelet Volume 9.6 fL (7.4-10.4); Platelet Count 183 K/uL (130-400); RDW Coefficient of Variation 14.8 % (11.5-14.5); Red Blood Count 3.55 M/uL (4.2-5.4); White Blood Count 6.79 K/uL (4.8-10.8)
--- NOTE | 2021-05-07 15:30 | XRay Report ---
XR chest 1V portable CLINICAL HISTORY: weakness COMPARISON STUDY: Chest CT October 28, 2020. Chest radiograph March 26, 2021. FINDINGS: Bilateral shoulder arthroplasties and median sternotomy wires are noted. Cardiomegaly is un changed. There are several old right rib fractures. No pneumothorax or pleural effusion is present. T here is no consolidation or evidence for pulmonary edema. Right lower lung densities may reflect scar ring. IMPRESSION: No acute cardiopulmonary findings. Cardiomegaly. ACT 112: Negative or not required by law. Electronically signed by: Anthony Borden M.D. 05/07/2021 3:29 PM
[2021-05-07 15:35] LABS: INR 1.1 (0.9-1.1); Partial Thromboplastin Time 26.7 Seconds (21.0-31.0); Prothrombin Time 11.9 Seconds (9.0-12.0)
[2021-05-07 15:57] LABS: Troponin I < 0.03 ng/ml (0-0.04)
[2021-05-07 15:59] LABS: Alanine Aminotransferase 11 U/L (7-52); Albumin Globulin Ratio 1.3 (0.9-2); Albumin Level 3.5 gm/dl (3.4-5.0); Alkaline Phosphatase 58 U/L (34-104); Anion Gap 5 (3-11); Aspartate Aminotransferase 14 U/L (13-39); BUN Creatinine Ratio 20.5 (10-20); Bilirubin,Total 0.3 mg/dl (0.2-1.0); Blood Urea Nitrogen 45 mg/dl (6-23); Calcium 8.9 mg/dl (8.5-10.1); Carbon Dioxide 25 mmol/L (21-32); Chloride 107 mmol/L (98-107); Creatinine Clr Calc Pharmacy 16.1 ml/min; Est GFR (African American) 23.1 ml/min; Est GFR (Non-African American) 19.9 ml/min; Globulin 2.8 gm/dl (2.5-4.0); Glucose 74 mg/dl (70-99(Fasting)); Magnesium 1.8 mg/dl (1.7-2.4); Potassium 4.3 mmol/L (3.5-5.1); Sodium 137 mmol/L (136-145); Total Protein 6.3 gm/dl (6.0-8.3)
[2021-05-07 16:01] LABS: Basophils # (auto) 0.03 K/uL (0-0.2); Basophils % (auto) 0.4 %; Eosinophils # (auto) 0.14 K/uL (0-0.5); Eosinophils % (auto) 2.1 %; Immature Granulocytes # (auto) 0.01 K/uL (0.00-0.02); Immature Granulocytes % (auto) 0.1 %; Lymphocytes # (auto) 2.72 K/uL (1.2-3.4); Lymphocytes % (auto) 40.1 %; Monocytes # (auto) 0.63 K/uL (0.11-0.59); Monocytes % (auto) 9.3 %; Neutrophils # (auto) 3.26 K/uL (1.4-6.5); Ovalocytes 1+
[2021-05-07] MEDS ORDERED: SODIUM CHLORIDE 0.9% 1000ML 500 ML IV ONE (16:22)
--- NOTE | 2021-05-07 17:32 | History & Physical Report ---
Date of Service May 07, 2021 Assessment & Plan (1) Hypotension: Plan: Received empiric dose of Lasix on Sunday due to leg swelling Has not been eating or drinking much since then Noted to have low blood pressure at presentation to the emergency room with a systolic of around 70s Has been improving with intravenous fluid We will continue IV fluid (2) KIM (acute kidney injury): Plan: Has KIM with creatinine 2.20 and BUN of 45-secondary to dehydration and use of Lasix recently Has KIM on CKD We will continue with intravenous fluid rate of 125 cc an hour for at least 3 L Overall VIKKI inhibitor, hydrochlorothiazide and any other diuretics Monitor PRP (3) Diastolic CHF with preserved left ventricular function, NYHA class 2: Plan: Stable without any acute fluid overload (4) Persistent atrial fibrillation: Plan: Rate is controlled Continue current medications (5) History of gastric ulcer: Plan: Continue PPI and misoprostol DVT prophylaxis Eliquis CODE STATUS Full History of Present Illness Chief Complaint: Dizziness, weakness and mechanical fall without injury Primary Care Provider: Con Coughlin MD She is an 82-year-old female with significant past medical history including A. fib on Eliquis, CAD status post CABG, mild , hyperlipidemia, hypothyroidism, GERD, CKD stage III, anxiety and depression and urinary incontinence was brought into ER as she was weak and has had a fall this afternoon. Apparently she received a peak dose of Lasix on Sunday for leg swelling and since then she has not been eating and drinking much due to loss of appetite and has been getting weaker. This afternoon she was trying to get up from chair and due to weakness sled from the chair on the floor and could not manage to get up by herself. No obvious injury and denies any other symptoms associated with the fall. She was noted to be dehydrated with low blood pressure a systolic 70 to 80s in the emergency room which improved subsequently with IV fluid. Apparently she has not been taking her medications for a day or 2 as well. Allergies Allergy/AdvReac Type Severity Reaction Status Date / Time nitroglycerin AdvReac Severe "PROJECTILE Verified 05/07/21 17:15 VOMITTING" ergotamine AdvReac Intermediate vomiting Verified 05/07/21 17:15 Home Medications Medication Instructions Recorded Confirmed Type ferrous sulfate 325 mg (65 mg 325 mg PO QAM 01/23/18 05/07/21 History iron) tablet levothyroxine 100 mcg tablet 100 mcg PO DAILYBB 01/23/18 05/07/21 History (Levoxyl) lisinopril 2.5 mg tablet 2.5 mg PO QAM 01/23/18 05/07/21 History pantoprazole 40 mg tablet,delayed 40 mg PO DAILY 01/23/18 05/07/21 History release (Protonix) rosuvastatin 40 mg tablet (Crestor) 40 mg PO QAM 01/23/18 05/07/21 History multivitamin 1 tab PO QAM 11/11/18 05/07/21 History misoprostol 100 mcg tablet 100 mcg PO QID 11/17/19 05/07/21 History methocarbamol 500 mg tablet 500 mg PO TID #270 tab 05/24/20 05/07/21 Rx metoprolol succinate 25 mg 25 mg PO DAILY 10/22/20 05/07/21 History tablet,extended release 24 hr oxybutynin chloride 15 mg 15 mg PO QAM 10/22/20 05/07/21 History tablet,extended release 24 hr melatonin 5 mg tablet 5 mg PO HS PRN 03/01/21 05/07/21 History apixaban 2.5 mg tablet (Eliquis) 2.5 mg PO BID #180 tab 03/22/21 05/07/21 Rx buspirone 10 mg tablet 10 mg PO BID #60 tab 03/22/21 05/07/21 Rx hydrocodone 10 mg-acetaminophen 1 tab PO Q6 PRN 03/26/21 05/07/21 History 325 mg tablet gabapentin 300 mg capsule 300 mg PO BID 05/07/21 05/07/21 History hydrochlorothiazide 25 mg tablet 25 mg PO 2XWK 05/07/21 05/07/21 History triamterene 37.5 1 tab PO QAM 05/07/21 05/07/21 History mg-hydrochlorothiazide 25 mg tablet zolpidem 5 mg tablet 5 mg PO HS PRN 05/07/21 05/07/21 History Past Med/Surg History Medical History Acid reflux OCCASIONAL Arthritis Chronic back pain Chronic kidney disease stage 3 Depression Dyslipidemia History of blood transfusion 2012 2/2 GASTRIC ULCER History of gastric ulcer 2012 Hypertension Hypothyroidism Osteoarthritis Spinal stenosis Transient ischemic attack (TIA) ~2013>REASON FOR PLAVIX Surgical History H/O bilateral salpingo-oophorectomy with hyter History of abdominoplasty PANNICULECTOMY History of arthroplasty of left hip History of arthroplasty of left shoulder History of arthroplasty of right hip History of cardiac cath NO STENTS History of colonoscopy History of coronary artery bypass graft 1998 (1 VESSEL) History of esophagogastroduodenoscopy (EGD) History of hysterectomy with oophorectomy History of tonsillectomy and adenoidectomy S/P epidural steroid injection S/p reverse total shoulder arthroplasty RT/LEFT Family History Father , age 74 Allergic reaction Mother , 80s CHF (congestive heart failure) Other No family history of adverse response to anesthesia Social History Smoking Status: Never smoker Second Hand Exposure: No; Hx Alcohol Use: No Hx Substance Use: No Preferred Language: Telugu Communication Ability: Effective Visual Impairment: No Limitations Adolescent Psychiatrist Required: No Beliefs That Will Affect Care: Jew Jew Beliefs: Confucianist marital status: Single Current Living Situation: Alone Current Living Situation Comment: [facility] How many Children do You have: 0 Feels Safe at Home: Yes Assistive Devices: Walker Review of Systems Review of Systems: All systems reviewed & are unremarkable except as noted in HPI & below Physical Exam Physical Exam: Lying in bed comfortably Constitutional: average body habitus; not ill appearing Eyes: PERRL, conjunctivae normal, anicteric sclerae ENMT: external ear and nose normal, oropharynx normal Neck: trachea midline, no thyromegaly Respiratory: no respiratory distress Auscultation: lungs clear to auscultation bilaterally; no crackles Cardiovascular: Rate/Rhythm: + irregularly irregular Heart Sounds: normal S1, normal S2 and + murmur (2/6 ESM over precordium) Extremities: no edema Gastrointestinal (Abdomen): Inspection/Auscultation: normal bowel sounds; abdomen not distended Percussion/Palpation: abdomen soft; abdomen nontender Musculoskeletal: No acute arthritis in any joint Neurologic: Alert, awake and oriented x3. Generally weak without any focal neuro deficit Results & Data Results & Data ([facility]) Vital Signs (Past 12 Hours) Vital Signs Temp Pulse Pulse Resp BP BP Pulse Ox 05/07/21 17:03 75 18 106/69 05/07/21 15:45 95/54 L 05/07/21 15:18 69 12 98 05/07/21 15:03 36.7 C 80 15 87/50 L 97 Diagnostic Findings Short CBC 05/07/21 Range/Units 15:04 WBC 6.79 (4.8-10.8) K/uL Hgb 10.8 L (12.0-16.0) g/dL Hct 33.5 L (37-47) % Plt Count 183 (130-400) K/uL BMP 05/07/21 15:04 Sodium 137 Potassium 4.3 Chloride 107 Carbon Dioxide 25 BUN 45 H Creatinine 2.20 H Glucose 74 Calcium 8.9 Cardiac Enzymes 05/07/21 Range/Units 15:04 Troponin I < 0.03 (0-0.04) ng/ml Liver Function 05/07/21 Range/Units 15:04 Total Bilirubin 0.3 (0.2-1.0) mg/dl AST 14 (13-39) U/L ALT 11 (7-52) U/L Alkaline Phosphatase 58 (34-104) U/L Albumin 3.5 (3.4-5.0) gm/dl Medications Administered Current Inpatient Medications Sodium Chloride (Nss 1000ml) 1,000 mls @ 125 mls/hr IV .Q8H YAN Stop: 05/08/21 17:29 Code Status & VTE Plan VTE Prophylaxis Plan VTE Prophylaxis will be ordered: Yes
[2021-05-07] MEDS: SODIUM CHLORIDE 0.9% 1000ML 1,000 ML IV SCH (17:53)
[2021-05-07 19:25] LABS: Appearance Urine Clear (Clear); Bacteria Urine Automated Negative (Negative); Bilirubin Urine Negative (Negative); Blood Urine Negative (Negative); Color Urine Yellow; Epithelial Cell Urine Auto >30 /lpf (0-5); Glucose Urine UA Negative (Negative); Ketones Urine Negative (Negative); Leukocyte Esterase Urine 1+ (Negative); Nitrite Urine Negative (Negative); Protein Urine Negative (Negative); Specific Gravity Urine 1.018 (1.000-1.030); Urobilinogen Urine Negative (Negative)
[2021-05-07] MEDS ORDERED: HYDROcodone/ACETAMINOPHEN 10/325 TAB PO PRN (19:39)
[2021-05-07] MEDS: ZOLPIDEM TARTRATE 5 MG TAB PO PRN (21:15)
[2021-05-07] MEDS: APIXABAN 2.5 MG TAB PO SCH (23:11)
[2021-05-07] MEDS: GABAPENTIN 300 MG CAP PO SCH (23:12)
[2021-05-07] MEDS: busPIRone 5 MG TAB PO SCH (23:12)
[2021-05-07] MEDS: METHOCARBAMOL 500 MG TABLET PO SCH (23:13)
[2021-05-07] MEDS: miSOPROStoL 100 MCG TAB PO SCH (23:14)
[2021-05-08] MEDS: SODIUM CHLORIDE 0.9% 1000ML 1,000 ML IV SCH ×2 (03:14→16:18)
[2021-05-08] MEDS: LEVOTHYROXINE SODIUM 100 MCG TABLET PO SCH (05:04)
[2021-05-08 06:34] LABS: BUN Creatinine Ratio 27.8 (10-20); Calcium 8.8 mg/dl (8.5-10.1); Creatinine Clr Calc Pharmacy 24.1 ml/min; Est GFR (African American) 38.6 ml/min; Est GFR (Non-African American) 33.3 ml/min; Magnesium 1.7 mg/dl (1.7-2.4); Potassium 4.2 mmol/L (3.5-5.1)
[2021-05-08] MEDS: ROSUVASTATIN CALCIUM 20 MG TAB PO SCH (08:16)
[2021-05-08] MEDS: OXYBUTYNIN CHLORIDE XL 5 MG TABCR PO SCH (08:16)
[2021-05-08] MEDS: MULTIVITAMIN TAB PO SCH (08:16)
[2021-05-08] MEDS: FERROUS SULFATE 325 MG TAB PO SCH (08:16)
[2021-05-08] MEDS: PANTOprazole 40 MG TAB PO SCH (08:17)
[2021-05-08] MEDS: APIXABAN 2.5 MG TAB PO SCH ×2 (08:17→20:15)
[2021-05-08] MEDS: METOPROLOL SUCC 25MG EXT REL TAB PO SCH (08:17)
[2021-05-08] MEDS: METHOCARBAMOL 500 MG TABLET PO SCH ×3 (08:17→20:17)
[2021-05-08] MEDS: busPIRone 5 MG TAB PO SCH ×2 (08:17→20:15)
[2021-05-08] MEDS: miSOPROStoL 100 MCG TAB PO SCH ×4 (08:17→20:17)
[2021-05-08] MEDS: GABAPENTIN 300 MG CAP PO SCH ×2 (08:17→20:16)
--- NOTE | 2021-05-08 10:29 | Electrocardiogram Report ---
Test Reason : Blood Pressure : / mmHG Vent. Rate : 063 BPM Atrial Rate : 192 BPM P-R Int : 000 ms QRS Dur : 076 ms QT Int : 388 ms P-R-T Axes : 000 051 016 degrees QTc Int : 397 ms Atrial fibrillation Abnormal ECG When compared with ECG of 07-MAY-2021 15:23, (unconfirmed) Nonspecific T wave abnormality, improved in Anterior leads Confirmed by Albino Crowe ([id number]) on 05/08/2021 10:29:16 AM Referred By: REFERRED SELF Confirmed By:Cliff Crowe
--- NOTE | 2021-05-08 10:34 | Electrocardiogram Report ---
Test Reason : Blood Pressure : / mmHG Vent. Rate : 077 BPM Atrial Rate : 080 BPM P-R Int : 000 ms QRS Dur : 068 ms QT Int : 388 ms P-R-T Axes : 000 027 005 degrees QTc Int : 439 ms Atrial fibrillation Abnormal ECG When compared with ECG of 26-MAR-2021 04:01, No significant change was found Confirmed by Albino Crowe ([id number]) on 05/08/2021 10:33:50 AM Referred By: REFERRED SELF Confirmed By:Cliff Crwoe
[2021-05-08] MEDS ORDERED: LORazepam 2 MG/1 ML VIAL IV STA ×2 (11:40→16:02)
--- NOTE | 2021-05-08 14:22 | Hospitalist Progress Note ---
Date of Service May 08, 2021 Assessment & Plan (1) Hypotension: Plan: Received empiric dose of Lasix on Sunday due to leg swelling Has not been eating or drinking much since then Noted to have low blood pressure at presentation to the emergency room with a systolic of around 70s Has been improving with intravenous fluid Blood pressure has been improving and the symptoms are getting better We will continue IV fluid for now (2) KIM (acute kidney injury): Plan: Has KIM with creatinine 2.20 and BUN of 45-secondary to dehydration and use of Lasix recently Has KIM on CKD We will continue with intravenous fluid rate of 125 cc an hour for at least 3 L Overall VIKKI inhibitor, hydrochlorothiazide and any other diuretics Monitor PRP-kidney function has been improving and BUN and creatinine are 40 and 1.44 as of 05/08/2021 (3) Diastolic CHF with preserved left ventricular function, NYHA class 2: Plan: Stable without any acute fluid overload No evidence of fluid overload (4) Persistent atrial fibrillation: Plan: Rate is controlled Continue current medications (5) History of gastric ulcer: Plan: Continue PPI and misoprostol DVT prophylaxis Eliquis CODE STATUS Full Admission and Anticipated Discharge Date Admission Date: May 07, 2021 Subjective 05/08/2021 The patient was seen and examined in medical telemetry unit She has been feeling much better but remains very anxious Denies any more dizziness and has been able to sit up on the bed Complains some nausea likely secondary to overeating Review of Systems Review of Systems: All systems reviewed and are unremarkable except as noted below Neurologic: Remains very anxious Physical Exam Physical Exam: Lying in bed comfortably Constitutional: average body habitus; not ill appearing Eyes: PERRL, conjunctivae normal, anicteric sclerae ENMT: external ear and nose normal, oropharynx normal Neck: trachea midline, no thyromegaly Respiratory: no respiratory distress Auscultation: lungs clear to auscultation bilaterally; no crackles Cardiovascular: Rate/Rhythm: + irregularly irregular Heart Sounds: normal S1, normal S2 and + murmur (2/6 ESM over precordium) Extremities: no edema Gastrointestinal (Abdomen): Inspection/Auscultation: normal bowel sounds; abdomen not distended Percussion/Palpation: abdomen soft; abdomen nontender Musculoskeletal: No acute arthritis in any joint Neurologic: Alert, awake and oriented x3. Very anxious but no focal sensory or no motor deficit Results & Data Results & Data ([facility]) Vital Signs (Past 12 Hours) Vital Signs Temp Pulse Pulse Resp BP Pulse Ox 05/08/21 10:57 36.4 C L 78 18 134/79 95 05/08/21 08:31 36.9 C 84 18 121/72 97 05/08/21 07:00 61 05/08/21 03:35 36.5 C 63 18 92/52 L 98 Laboratory Results Short CBC 05/07/21 Range/Units 15:04 WBC 6.79 (4.8-10.8) K/uL Hgb 10.8 L (12.0-16.0) g/dL Hct 33.5 L (37-47) % Plt Count 183 (130-400) K/uL BMP 05/07/21 05/08/21 15:04 05:14 Sodium 137 137 Potassium 4.3 4.2 Chloride 107 110 H Carbon Dioxide 25 24 BUN 45 H 40 H Creatinine 2.20 H 1.44 H D Glucose 74 79 Calcium 8.9 8.8 Cardiac Enzymes 05/07/21 Range/Units 15:04 Troponin I < 0.03 (0-0.04) ng/ml Liver Function 05/07/21 Range/Units 15:04 Total Bilirubin 0.3 (0.2-1.0) mg/dl AST 14 (13-39) U/L ALT 11 (7-52) U/L Alkaline Phosphatase 58 (34-104) U/L Albumin 3.5 (3.4-5.0) gm/dl Urine 05/07/21 Range/Units 19:07 Urine Color Yellow Urine Appearance Clear (Clear) Urine pH 5.0 (4.5-7.5) Ur Specific [place] 1.018 (1.000-1.030) Urine Protein Negative (Negative) Urine Glucose (UA) Negative (Negative) Medications Administered Current Inpatient Medications Hydrocodone Bitart/Acetaminophen (Hydrocodone/Acetaminophen 10/325 Tab) 1 tab PO Q6 PRN PRN Reason: Pain Stop: 05/21/21 19:38 Apixaban (Apixaban 2.5 Mg Tab) 2.5 mg PO BID YAN Stop: 06/06/21 20:59 Last Admin: 05/08/21 08:17 Dose: 2.5 mg Documented by: Buspirone HCl (Buspirone 5 Mg Tab) 10 mg PO BID YAN Stop: 06/06/21 20:59 Last Admin: 05/08/21 08:17 Dose: 10 mg Documented by: Ferrous Sulfate (Ferrous Sulfate 325 Mg Tab) 325 mg PO QAM YAN Stop: 06/07/21 08:59 Last Admin: 05/08/21 08:16 Dose: 325 mg Documented by: Gabapentin (Gabapentin 300 Mg Cap) 300 mg PO BID YAN Stop: 06/06/21 20:59 Last Admin: 05/08/21 08:17 Dose: 300 mg Documented by: Sodium Chloride (Nss 1000ml) 1,000 mls @ 125 mls/hr IV .Q8H YAN Stop: 05/08/21 17:29 Last Infusion: 05/08/21 11:39 Dose: Infused Documented by: Levothyroxine Sodium (Levothyroxine Sodium 100 Mcg Tablet) 100 mcg PO DAILYBB [facility] Stop: 06/07/21 06:29 Last Admin: 05/08/21 05:04 Dose: 100 mcg Documented by: Melatonin (Melatonin 3 Mg Tab) 6 mg PO HS PRN PRN Reason: Insomnia Stop: 06/06/21 20:32 Methocarbamol (Methocarbamol 500 Mg Tablet) 500 mg PO TID YAN Stop: 06/06/21 20:59 Last Admin: 05/08/21 08:17 Dose: 500 mg Documented by: Metoprolol Succinate (Metoprolol Succ 25mg Ext Rel Tab) 25 mg PO DAILY [facility] Stop: 06/07/21 08:59 Last Admin: 05/08/21 08:17 Dose: Not Given Documented by: Misoprostol (Misoprostol 100 Mcg Tab) 100 mcg PO QID YAN Stop: 06/06/21 20:59 Last Admin: 05/08/21 13:48 Dose: 100 mcg Documented by: Multivitamins (Multivitamin Tab) 1 tab PO QAM YAN Stop: 06/07/21 08:59 Last Admin: 05/08/21 08:16 Dose: 1 tab Documented by: Oxybutynin Chloride (Oxybutynin Chloride Xl 5 Mg Tabcr) 15 mg PO QAM [facility] Stop: 06/07/21 08:59 Last Admin: 05/08/21 08:16 Dose: 15 mg Documented by: Pantoprazole Sodium (Pantoprazole 40 Mg Tab) 40 mg PO DAILY YAN Stop: 06/07/21 08:59 Last Admin: 05/08/21 08:17 Dose: 40 mg Documented by: Rosuvastatin Calcium (Rosuvastatin Calcium 20 Mg Tab) 40 mg PO QAM YAN Stop: 06/07/21 08:59 Last Admin: 05/08/21 08:16 Dose: 40 mg Documented by: Zolpidem Tartrate (Zolpidem Tartrate 5 Mg Tab) 5 mg PO HS PRN PRN Reason: insomnia Stop: 06/06/21 19:38 Last Admin: 05/07/21 21:15 Dose: 5 mg Documented by: (1) Hypotension Hypotension type: unspecified hypotension type Qualified Code(s): I95.9 - Hypotension, unspecified
[2021-05-08] MEDS: MELATONIN 3 MG TAB PO PRN (21:43)
[2021-05-08] MEDS: ZOLPIDEM TARTRATE 5 MG TAB PO PRN (22:54)
[2021-05-09] MEDS: LEVOTHYROXINE SODIUM 100 MCG TABLET PO SCH (05:27)
[2021-05-09 05:49] LABS: Basophils # (auto) 0.02 K/uL (0-0.2); Basophils % (auto) 0.4 %; Eosinophils # (auto) 0.15 K/uL (0-0.5); Hematocrit (blood only) 34.2 % (37-47); Hemoglobin 10.9 g/dL (12.0-16.0); Immature Granulocytes # (auto) 0.01 K/uL (0.00-0.02); Immature Granulocytes % (auto) 0.2 %; Lymphocytes # (auto) 2.18 K/uL (1.2-3.4); Lymphocytes % (auto) 43.9 %; Mean Corpuscular Hemoglobin 30.3 pg (25-34); Mean Corpuscular Hgb Conc 31.9 g/dL (32-36); Mean Platelet Volume 9.4 fL (7.4-10.4); Monocytes # (auto) 0.43 K/uL (0.11-0.59); Monocytes % (auto) 8.7 %; Neutrophils # (auto) 2.18 K/uL (1.4-6.5); Neutrophils % (auto) 43.8 %; Platelet Count 167 K/uL (130-400); RDW Coefficient of Variation 14.8 % (11.5-14.5); RDW Standard Deviation 51.9 fL (36.4-46.3); White Blood Count 4.97 K/uL (4.8-10.8)
[2021-05-09 06:15] LABS: BUN Creatinine Ratio 28.7 (10-20); Calcium 9.5 mg/dl (8.5-10.1); Creatinine Clr Calc Pharmacy 32.2 ml/min; Est GFR (African American) 54.6 ml/min; Est GFR (Non-African American) 47.1 ml/min; Potassium 4.5 mmol/L (3.5-5.1)
[2021-05-09] MEDS: ROSUVASTATIN CALCIUM 20 MG TAB PO SCH (08:02)
[2021-05-09] MEDS: FERROUS SULFATE 325 MG TAB PO SCH (08:02)
[2021-05-09] MEDS: OXYBUTYNIN CHLORIDE XL 5 MG TABCR PO SCH (08:02)
[2021-05-09] MEDS: METOPROLOL SUCC 25MG EXT REL TAB PO SCH (08:02)
[2021-05-09] MEDS: miSOPROStoL 100 MCG TAB PO SCH ×4 (08:03→20:17)
[2021-05-09] MEDS: MULTIVITAMIN TAB PO SCH (08:03)
[2021-05-09] MEDS: busPIRone 5 MG TAB PO SCH (08:03)
[2021-05-09] MEDS: GABAPENTIN 300 MG CAP PO SCH ×2 (08:03→20:17)
[2021-05-09] MEDS: PANTOprazole 40 MG TAB PO SCH (08:03)
[2021-05-09] MEDS: METHOCARBAMOL 500 MG TABLET PO SCH ×3 (08:03→20:17)
[2021-05-09] MEDS: APIXABAN 2.5 MG TAB PO SCH ×2 (08:03→20:16)
[2021-05-09] MEDS ORDERED: LORazepam 2 MG/1 ML VIAL IV STA (11:24)
--- NOTE | 2021-05-09 15:27 | Hospitalist Progress Note ---
Date of Service May 09, 2021 Assessment & Plan (1) Hypotension: Plan: Received empiric dose of Lasix on Sunday due to leg swelling Has not been eating or drinking much since then Noted to have low blood pressure at presentation to the emergency room with a systolic of around 70s Has been improving with intravenous fluid Blood pressure has been improving and the symptoms are getting better We will continue IV fluid for now Blood pressure is maintained and remains on the higher side No more dizziness We will get PT and OT evaluation prior to discharge Anxiety attacks She has history of anxiety She takes buspirone as needed Received 2 doses of Ativan 0.25 mg each IV for anxiety (2) KIM (acute kidney injury): Plan: Has KIM with creatinine 2.20 and BUN of 45-secondary to dehydration and use of Lasix recently Has KIM on CKD We will continue with intravenous fluid rate of 125 cc an hour for at least 3 L Overall VIKKI inhibitor, hydrochlorothiazide and any other diuretics Monitor PRP-kidney function has been improving and BUN and creatinine are 40 and 1.44 as of 05/08/2021 Kidney function has been normalized We will discontinue IV fluid and advised to drink more fluid (3) Diastolic CHF with preserved left ventricular function, NYHA class 2: Plan: Stable without any acute fluid overload No evidence of fluid overload (4) Persistent atrial fibrillation: Plan: Rate is controlled Continue current medications (5) History of gastric ulcer: Plan: Continue PPI and misoprostol DVT prophylaxis Eliquis CODE STATUS Full Admission and Anticipated Discharge Date Admission Date: May 07, 2021 Subjective 05/08/2021 The patient was seen and examined in medical telemetry unit She has been feeling much better but remains very anxious Denies any more dizziness and has been able to sit up on the bed Complains some nausea likely secondary to overeating 05/10/2011 The patient was seen and examined in medical telemetry unit She has been feeling much better but becomes very anxious at times She wants to have ambulation before she is discharged Denies any more dizziness Review of Systems Review of Systems: All systems reviewed and are unremarkable except as noted below Neurologic: Remains very anxious Physical Exam Physical Exam: Lying in bed comfortably but remains very anxious Constitutional: average body habitus; not ill appearing Eyes: PERRL, conjunctivae normal, anicteric sclerae ENMT: external ear and nose normal, oropharynx normal Neck: trachea midline, no thyromegaly Respiratory: no respiratory distress Auscultation: lungs clear to auscultation bilaterally; no crackles Cardiovascular: Rate/Rhythm: + irregularly irregular Heart Sounds: normal S1, normal S2 and + murmur (2/6 ESM over precordium) Extremities: no edema Gastrointestinal (Abdomen): Inspection/Auscultation: normal bowel sounds; abdomen not distended Percussion/Palpation: abdomen soft; abdomen nontender Musculoskeletal: No acute arthritis in any joint Neurologic: Alert, awake and oriented x3. No focal sensory or motor deficit appreciated Results & Data Results & Data ([facility]) Vital Signs (Past 12 Hours) Vital Signs Temp Pulse Pulse Resp BP Pulse Ox 05/09/21 10:55 36.4 C L 68 16 120/54 L 94 05/09/21 07:23 36.8 C 60 18 120/70 95 05/09/21 07:08 66 Laboratory Results Short CBC 05/09/21 Range/Units 05:21 WBC 4.97 (4.8-10.8) K/uL Hgb 10.9 L (12.0-16.0) g/dL Hct 34.2 L (37-47) % Plt Count 167 (130-400) K/uL BMP 05/09/21 05:21 Sodium 140 Potassium 4.5 Chloride 112 H Carbon Dioxide 25 BUN 31 H Creatinine 1.08 D Glucose 94 Calcium 9.5 Medications Administered Current Inpatient Medications Hydrocodone Bitart/Acetaminophen (Hydrocodone/Acetaminophen 10/325 Tab) 1 tab PO Q6 PRN PRN Reason: Pain Stop: 05/21/21 19:38 Apixaban (Apixaban 2.5 Mg Tab) 2.5 mg PO BID YAN Stop: 06/06/21 20:59 Last Admin: 05/09/21 08:03 Dose: 2.5 mg Documented by: Buspirone HCl (Buspirone 5 Mg Tab) 10 mg PO BID YAN Stop: 06/06/21 20:59 Last Admin: 05/09/21 08:03 Dose: 10 mg Documented by: Ferrous Sulfate (Ferrous Sulfate 325 Mg Tab) 325 mg PO QAM YAN Stop: 06/07/21 08:59 Last Admin: 05/09/21 08:02 Dose: 325 mg Documented by: Gabapentin (Gabapentin 300 Mg Cap) 300 mg PO BID YAN Stop: 06/06/21 20:59 Last Admin: 05/09/21 08:03 Dose: 300 mg Documented by: Levothyroxine Sodium (Levothyroxine Sodium 100 Mcg Tablet) 100 mcg PO DAILYBB [facility] Stop: 06/07/21 06:29 Last Admin: 05/09/21 05:27 Dose: 100 mcg Documented by: Melatonin (Melatonin 3 Mg Tab) 6 mg PO HS PRN PRN Reason: Insomnia Stop: 06/06/21 20:32 Last Admin: 05/08/21 21:43 Dose: 6 mg Documented by: Methocarbamol (Methocarbamol 500 Mg Tablet) 500 mg PO TID [facility] Stop: 06/06/21 20:59 Last Admin: 05/09/21 13:51 Dose: 500 mg Documented by: Metoprolol Succinate (Metoprolol Succ 25mg Ext Rel Tab) 25 mg PO DAILY [facility] Stop: 06/07/21 08:59 Last Admin: 05/09/21 08:02 Dose: 25 mg Documented by: Misoprostol (Misoprostol 100 Mcg Tab) 100 mcg PO QID [facility] Stop: 06/06/21 20:59 Last Admin: 05/09/21 13:51 Dose: 100 mcg Documented by: Multivitamins (Multivitamin Tab) 1 tab PO QAM [facility] Stop: 06/07/21 08:59 Last Admin: 05/09/21 08:03 Dose: 1 tab Documented by: Oxybutynin Chloride (Oxybutynin Chloride Xl 5 Mg Tabcr) 15 mg PO QAM [facility] Stop: 06/07/21 08:59 Last Admin: 05/09/21 08:02 Dose: 15 mg Documented by: Pantoprazole Sodium (Pantoprazole 40 Mg Tab) 40 mg PO DAILY YAN Stop: 06/07/21 08:59 Last Admin: 05/09/21 08:03 Dose: 40 mg Documented by: Rosuvastatin Calcium (Rosuvastatin Calcium 20 Mg Tab) 40 mg PO QAM [facility] Stop: 06/07/21 08:59 Last Admin: 05/09/21 08:02 Dose: 40 mg Documented by: Zolpidem Tartrate (Zolpidem Tartrate 5 Mg Tab) 5 mg PO HS PRN PRN Reason: insomnia Stop: 06/06/21 19:38 Last Admin: 05/08/21 22:54 Dose: 5 mg Documented by: (1) Hypotension Hypotension type: unspecified hypotension type Qualified Code(s): I95.9 - Hypotension, unspecified
[2021-05-09] MEDS ORDERED: busPIRone 7.5 MG TAB PO ONE (17:20)
[2021-05-09] MEDS: MELATONIN 3 MG TAB PO PRN (21:19)
[2021-05-09] MEDS: ZOLPIDEM TARTRATE 5 MG TAB PO PRN (22:47)
[2021-05-10] MEDS ORDERED: LORazepam 2 MG/1 ML VIAL IV STA (02:10)
[2021-05-10] MEDS: LEVOTHYROXINE SODIUM 100 MCG TABLET PO SCH (05:40)
[2021-05-10 07:40] VITALS: TEMP 97.9
[2021-05-10] MEDS: MULTIVITAMIN TAB PO SCH (08:17)
[2021-05-10] MEDS: OXYBUTYNIN CHLORIDE XL 5 MG TABCR PO SCH (08:17)
[2021-05-10] MEDS: METHOCARBAMOL 500 MG TABLET PO SCH ×2 (08:17→14:02)
[2021-05-10] MEDS: FERROUS SULFATE 325 MG TAB PO SCH (08:17)
[2021-05-10] MEDS: METOPROLOL SUCC 25MG EXT REL TAB PO SCH (08:17)
[2021-05-10] MEDS: ROSUVASTATIN CALCIUM 20 MG TAB PO SCH (08:17)
[2021-05-10] MEDS: PANTOprazole 40 MG TAB PO SCH (08:17)
[2021-05-10] MEDS: miSOPROStoL 100 MCG TAB PO SCH ×2 (08:17→14:02)
[2021-05-10] MEDS: GABAPENTIN 300 MG CAP PO SCH (08:17)
[2021-05-10] MEDS: APIXABAN 2.5 MG TAB PO SCH (08:17)
[2021-05-10] MEDS: busPIRone 5 MG TAB PO SCH (09:00)
[2021-05-10 11:17] VITALS: O2SAT 98
--- NOTE | 2021-05-10 13:50 | Hospitalist Progress Note ---
Date of Service May 10, 2021 Assessment & Plan (1) Hypotension: Plan: Received empiric dose of Lasix on Sunday due to leg swelling Has not been eating or drinking much since then Noted to have low blood pressure at presentation to the emergency room with a systolic of around 70s Has been improving with intravenous fluid Blood pressure has been improving and the symptoms are getting better We will continue IV fluid for now Blood pressure is maintained and remains on the higher side No more dizziness We will get PT and OT evaluation prior to discharge Your lisinopril and hydrochlorothiazide will be stopped Anxiety attacks She has history of anxiety She takes buspirone as needed Received 2 doses of Ativan 0.25 mg each IV for anxiety Normal anxiety symptoms (2) KIM (acute kidney injury): Plan: Has KIM with creatinine 2.20 and BUN of 45-secondary to dehydration and use of Lasix recently Has KIM on CKD We will continue with intravenous fluid rate of 125 cc an hour for at least 3 L Overall VIKKI inhibitor, hydrochlorothiazide and any other diuretics Monitor PRP-kidney function has been improving and BUN and creatinine are 40 and 1.44 as of 05/08/2021 Kidney function has been normalized We will discontinue IV fluid and advised to drink more fluid Lisinopril will be stopped (3) Diastolic CHF with preserved left ventricular function, NYHA class 2: Plan: Stable without any acute fluid overload No evidence of fluid overload (4) Persistent atrial fibrillation: Plan: Rate is controlled Continue current medications (5) History of gastric ulcer: Plan: Continue PPI and misoprostol DVT prophylaxis Eliquis CODE STATUS Full Admission and Anticipated Discharge Date Admission Date: May 07, 2021 Subjective 05/08/2021 The patient was seen and examined in medical telemetry unit She has been feeling much better but remains very anxious Denies any more dizziness and has been able to sit up on the bed Complains some nausea likely secondary to overeating 05/10/2011 The patient was seen and examined in medical telemetry unit She has been feeling much better but becomes very anxious at times She wants to have ambulation before she is discharged Denies any more dizziness 05/10/2021 The patient was seen and examined in medical telemetry unit She did not have any more anxiety attack She has had physical therapy and denies any symptoms of dizziness She will be discharged home this afternoon Review of Systems Review of Systems: All systems reviewed and are unremarkable except as noted below Neurologic: Remains very anxious Physical Exam Physical Exam: Lying in bed comfortably but remains very anxious Constitutional: average body habitus; not ill appearing Eyes: PERRL, conjunctivae normal, anicteric sclerae ENMT: external ear and nose normal, oropharynx normal Neck: trachea midline, no thyromegaly Respiratory: no respiratory distress Auscultation: lungs clear to auscultation bilaterally; no crackles Cardiovascular: Rate/Rhythm: + irregularly irregular Heart Sounds: normal S1, normal S2 and + murmur (2/6 ESM over precordium) Extremities: no edema Gastrointestinal (Abdomen): Inspection/Auscultation: normal bowel sounds; abdomen not distended Percussion/Palpation: abdomen soft; abdomen nontender Musculoskeletal: No acute arthritis in any joint Neurologic: Alert, awake and oriented x3. Anxious but no other significant symptoms Results & Data Results & Data ([facility]) Vital Signs (Past 12 Hours) Vital Signs Temp Pulse Pulse Resp BP BP Pulse Ox 05/10/21 11:16 36.6 C 71 18 113/70 98 05/10/21 07:40 36.6 C 69 18 173/81 H 99 05/10/21 07:00 67 05/10/21 03:40 36.7 C 71 18 142/68 H 96 (1) Hypotension Hypotension type: unspecified hypotension type Qualified Code(s): I95.9 - Hypotension, unspecified
[2021-05-10 14:09] VITALS: BP 142/68; PULSE 75
--- NOTE | 2021-05-11 13:39 | Discharge Summary ---
Date of Service May 11, 2021 Admission HPI Per Admitting Provider She is an 82-year-old female with significant past medical history including A. fib on Eliquis, CAD status post CABG, mild , hyperlipidemia, hypothyroidism, GERD, CKD stage III, anxiety and depression and urinary incontinence was brought into ER as she was weak and has had a fall this afternoon. Apparently she received a peak dose of Lasix on Sunday for leg swelling and since then she has not been eating and drinking much due to loss of appetite and has been getting weaker. This afternoon she was trying to get up from chair and due to weakness sled from the chair on the floor and could not manage to get up by herself. No obvious injury and denies any other symptoms associated with the fall. She was noted to be dehydrated with low blood pressure a systolic 70 to 80s in the emergency room which improved subsequently with IV fluid. Apparently she has not been taking her medications for a day or 2 as well. Admission Exam Per Admitting Provider Physical Exam: Lying in bed comfortably Constitutional: average body habitus; not ill appearing Eyes: PERRL, conjunctivae normal, anicteric sclerae ENMT: external ear and nose normal, oropharynx normal Neck: trachea midline, no thyromegaly Respiratory: no respiratory distress Auscultation: lungs clear to auscultation bilaterally; no crackles Cardiovascular:L Rate/Rhythm: + irregularly irregular Heart Sounds: normal S1, normal S2 and + murmur (2/6 ESM over precordium) Extremities: no edema Gastrointestinal (Abdomen): Inspection/Auscultation: normal bowel sounds; abdomen not distended Percussion/Palpation: abdomen soft; abdomen nontender Musculoskeletal: No acute arthritis in any joint Neurologic: Alert, awake and oriented x3. Generally weak without any focal neuro deficit Principal Diagnosis KIM on CKD, hypotension secondary to dehydration, chronic diastolic CHF, persistent atrial fibrillation Discharge Exam Lying in bed comfortably but remains very anxious Constitutional average body habitus; not ill appearing Eyes PERRL, conjunctivae normal, anicteric sclerae ENMT external ear and nose normal, oropharynx normal Neck trachea midline, no thyromegaly Respiratory no respiratory distress Auscultation: lungs clear to auscultation bilaterally; no crackles Cardiovascular Rate/Rhythm: + irregularly irregular Heart Sounds: normal S1, normal S2 and + murmur (2/6 ESM over precordium) Extremities: no edema Gastrointestinal (Abdomen) Inspection/Auscultation: normal bowel sounds; abdomen not distended Percussion/Palpation: abdomen soft; abdomen nontender Discharge Data Allergies Allergy/AdvReac Type Severity Reaction Status Date / Time nitroglycerin AdvReac Severe "PROJECTILE Verified 05/07/21 17:15 VOMITTING" ergotamine AdvReac Intermediate vomiting Verified 05/07/21 17:15 Consultations 05/07/21 16:40 ED Decision to Admit Stat Hospital Course (1) Hypotension: Received empiric dose of Lasix on Sunday due to leg swelling Has not been eating or drinking much since then Noted to have low blood pressure at presentation to the emergency room with a systolic of around 70s Has been improving with intravenous fluid Blood pressure has been improving and the symptoms are getting better We will continue IV fluid for now Blood pressure is maintained and remains on the higher side No more dizziness We will get PT and OT evaluation prior to discharge Your lisinopril and hydrochlorothiazide will be stopped Anxiety attacks She has history of anxiety She takes buspirone as needed Received 2 doses of Ativan 0.25 mg each IV for anxiety Normal anxiety symptoms (2) KIM (acute kidney injury): Has KIM with creatinine 2.20 and BUN of 45-secondary to dehydration and use of Lasix recently Has KIM on CKD We will continue with intravenous fluid rate of 125 cc an hour for at least 3 L Overall VIKKI inhibitor, hydrochlorothiazide and any other diuretics Monitor PRP-kidney function has been improving and BUN and creatinine are 40 and 1.44 as of 05/08/2021 Kidney function has been normalized We will discontinue IV fluid and advised to drink more fluid Lisinopril will be stopped (3) Diastolic CHF with preserved left ventricular function, NYHA class 2: Stable without any acute fluid overload No evidence of fluid overload (4) Persistent atrial fibrillation: Rate is controlled Continue current medications (5) History of gastric ulcer: Continue PPI and misoprostol DVT prophylaxis Eliquis CODE STATUS Full Total Time Total Time Spent Total Time Spent (In Minutes): 40 minutes Discharge Plan Discharge Items Patient Disposition: Home - Home Health Services Reason For Visit: HYPOTENSION, KIM, DEHYDRATION Discharge Diagnosis: KIM on CKD, hypotension secondary to dehydration, chronic diastolic CHF, persistent atrial fibrillation Condition on Discharge: Fair Activity: Resume your previous activity Non-emergency contact: Primary Care Provider Call non-emergency contact if: you have any medication questions and your symptoms worsen Follow-up/Referrals: Con Coughlin MD [Primary Care Provider] - (Date & Time 05/13/2021 3:00 PM Provider Gilbert Calloway MD Department Family Medicine [facility] ) Diet: Heart Healthy Fluids: 1500ml (6 cups) Addtl Attending Provider Instructions: Please take precautions to avoid fall Try to drink more fluid as advised Take your medications regularly Please keep appointments with your healthcare providers Your lisinopril and hydrochlorothiazide have been stopped. Pending Studies at Discharge: No Stand-Alone Forms: My [facility] [employer], Smoking Cessation Medications and DC Order Prescriptions: Continued multivitamin tablet 1 tab PO QAM RF: 0 methocarbamol 500 mg tablet 500 mg PO TID Qty: 270 RF: 3 buspirone 10 mg tablet 10 mg PO BID Qty: 60 RF: 5 Eliquis 2.5 mg tablet 2.5 mg PO BID Qty: 180 RF: 0 misoprostol 100 mcg Tablet 100 mcg PO QID RF: 0 levothyroxine [Levoxyl] 100 mcg Tablet 100 mcg PO DAILYBB RF: 0 pantoprazole [Protonix] 40 mg Tablet,Delayed Release (Dr/Ec) 40 mg PO DAILY RF: 0 ferrous sulfate 325 mg (65 mg iron) Tablet 325 mg PO QAM RF: 0 rosuvastatin [Crestor] 40 mg Tablet 40 mg PO QAM RF: 0 metoprolol succinate 25 mg tablet extended release 24 hr 25 mg PO DAILY RF: 0 oxybutynin chloride 15 mg tablet extended release 24 hr 15 mg PO QAM RF: 0 melatonin 5 mg Tablet 5 mg PO HS PRN (Reason: Insomnia) RF: 0 hydrocodone-acetaminophen 10-325 mg Tablet 1 tab PO Q6 PRN (Reason: Pain) RF: 0 zolpidem 5 mg tablet 5 mg PO HS PRN (Reason: Sleep) RF: 0 triamterene-hydrochlorothiazid 37.5-25 mg tablet 1 tab PO QAM RF: 0 gabapentin 300 mg capsule 300 mg PO BID RF: 0 Discontinued lisinopril 2.5 mg Tablet 2.5 mg PO QAM RF: 0 hydrochlorothiazide 25 mg tablet 25 mg PO [id number] RF: 0 Discharge Orders: Discharge Order (Routine); Ordered 05/10/21 Ordered By: Abelardo Fallon Admission Data Admit Date/Time: 05/07/21 17:19 Attending Provider: Abelardo Fallon Admit Provider: Abelardo Fallon Primary Care Provider: Con Coughlin Other Providers: G[facility] Other Interventions: Discharge Summary Assessment (RN) Last Done: 05/10/21 14:08
== END 2021-05-10 15:44 | disposition home health service (06) | DRG 683 ==
LOC: ED 15:01 → 2N 17:19

== ENCOUNTER 2022-07-13 19:05 | Inpatient (IN) ==
[2022-07-13] MEDS ORDERED: LORazepam 2 MG/1 ML VIAL IV STA (19:20)
[2022-07-13] MEDS ORDERED: ONDANSETRON INJ 2 MG/ML 2 ML VIAL IV STA (19:20)
--- NOTE | 2022-07-13 19:29 | Emergency Department Note ---
Impression & Plan Vertigo, Hypertension, AF (paroxysmal atrial fibrillation), Headache ED Provider Note NAME: Marquez LEACH AGE: 83 SEX: F : 11/14/1938 ARRIVES VIA: Ambulance INFORMANT: Patient, EMS ED PROVIDER(S): Delmar Bar DO CHIEF COMPLAINT: Vertigo HPI: The patient is an 83-year-old female who presented to the emergency department for an evaluation of dizziness and vertigo. The patient had a gradual onset of dizziness which began yesterday. She states today around 4 PM she had an acute change in her symptoms became much worse. She is noticed nausea as well as dizziness. She also started noticing a headache. She was noted to have elevated blood pressure. She called 911 this evening to try to get nausea medication but when she was evaluated by the racking machine operator she was felt to be in distress and it was advised that she come to the emergency department. She also complains of a headache. She denies having any fever. She denies having any trauma. She denies having any weakness in the legs. She states that she did have an episode of abdominal discomfort but this has resolved. She denies having any abdominal pain at this time. She denies having any double vision. She denies having any black or tarry stools. ROS: See above HPI for pertinent positives & negatives. A total of 10 systems reviewed and were otherwise negative. PAST MEDICAL HISTORY: See Below PAST SURGICAL HISTORY: See Below FAMILY HISTORY: See Below SOCIAL HISTORY: See Below HOME MEDICATIONS: See Below ALLERGIES: See Below VITALS: See Below PHYSICAL EXAMINATION: GENERAL: The patient is awake and alert. She is very anxious appearing. She appears to be uncomfortable. EYES: The conjunctivae are clear. The pupils are round and reactive. There is no nystagmus elicited. EARS, NOSE, MOUTH AND THROAT: The nose is without any evidence of any deformity. NECK: The neck is nontender and supple. RESPIRATORY: Normal respiratory effort is noted there is no evidence of wheezing rhonchi or rales CARDIOVASCULAR: Regular rate and rhythm noted there no murmurs rubs or gallops normal S1 normal S2. GASTROINTESTINAL: The abdomen is soft. Abdomen is nontender. MUSCULOSKELETAL/EXTREMITIES: There is no evidence of gross deformity full range of motion is noted in the hips and shoulders. SKIN: There is no obvious evidence of any rash. There are no petechiae, pallor or cyanosis noted. NEUROLOGIC: Patient is awake alert and oriented x3 strength is symmetric patellar reflexes are 2+ bilaterally. Patient is able to hold each leg off the bed for greater than 5 seconds. There is no drift in the upper extremities. MEDICAL DECISION MAKING: The patient is an 83-year-old female who presented to the emergency department for her nausea. The patient appeared to have vertigo symptoms. Symptoms were very severe. The patient was able to ambulate and did not have ataxia. She had no focal neurologic deficits. There was concern given the patient's history of paroxysmal atrial fibrillation as well as her elevated blood pressure this could represent a central nervous system cause for her symptoms. I discussed the patient's laboratory and radiographic studies with her. She was reevaluated multiple times. She was also developing a headache. She was treated with medication for headache in the emergency department. She was reevaluated and was feeling somewhat improved. Given her comorbidities I discussed her condition with the on-call [facility] hospitalist. They have agreed to evaluate the patient in the emergency department for further management and disposition. Triage Nursing notes reviewed. Prior medical records reviewed Vital Signs: reviewed and remarkable for elevated blood pressure Differential diagnosis: Benign positional vertigo, dehydration, hypovolemia, anemia, tumor, infection, hypoglycemia, electrolyte abnormalities, cardiac sources, intracerebral event, toxicologic, neurologic, as well as other pathologies. ER treatment provided: See below Diagnostics interpreted by me: ECG: EKG was obtained in the emergency department. My interpretation is sinus rhythm at 91 bpm. There is no ectopy. First-degree AV block is noted. Nonspecific low lateral ST depressions were noted. This was compared to a tracing from May 08, 2021. Atrial fibrillation has been replaced by sinus rhythm. Cardiac Monitoring: An order was placed for continuous cardiac monitoring. The monitor shows a rate of 85 bpm with sinus rhythm. Laboratory studies: As stated above and show below. Imaging studies: See below. Radiographic imaging was reviewed by myself Consultation(s): I discussed this case with Dr. Johnson who is on-call for the [facility]. Past Med/Surg History Medical History Acid reflux OCCASIONAL Arthritis CAD (coronary artery disease) Chronic back pain Chronic kidney disease stage 3 Depression Dyslipidemia Fall History of blood transfusion 2013 2/2 GASTRIC ULCER History of gastric ulcer 2012 Hypertension Hypothyroidism Mild aortic stenosis Moderate mitral regurgitation New onset a-fib Osteoarthritis Spinal stenosis Transient ischemic attack (TIA) ~2013>REASON FOR PLAVIX Surgical History H/O bilateral salpingo-oophorectomy with hyter History of abdominoplasty PANNICULECTOMY History of arthroplasty of left hip History of arthroplasty of left shoulder History of arthroplasty of right hip History of cardiac cath NO STENTS History of colonoscopy History of coronary artery bypass graft 1998 (1 VESSEL) History of esophagogastroduodenoscopy (EGD) History of hysterectomy with oophorectomy History of tonsillectomy and adenoidectomy 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 S/P epidural steroid injection S/p reverse total shoulder arthroplasty RT/LEFT Family History Father , age 74 Allergic reaction Mother , 80s CHF (congestive heart failure) Other No family history of adverse response to anesthesia Social History Smoking Status: Never smoker Second Hand Exposure: No; Do You Dip or Chew Tobacco: No; Hx Alcohol Use: No Hx Substance Use: No Preferred Language: Dutch Communication Ability: Effective Visual Impairment: No Limitations Supervisor Throwing Department Required: No Beliefs That Will Affect Care: Religion Religion Beliefs: Mu-Ism marital status: Single Current Living Situation: Alone Current Living Situation Comment: [facility] How many Children do You have: 0 Feels Safe at Home: Yes Assistive Devices: None Allergies Allergies Allergy/AdvReac Type Severity Reaction Status Date / Time nitroglycerin AdvReac Severe "PROJECTILE Verified 07/13/22 21:52 VOMITTING" ergotamine AdvReac Intermediate vomiting Verified 07/13/22 21:52 Home Meds Home Medications Medication Instructions Recorded Confirmed levothyroxine 100 mcg tablet 100 mcg PO DAILYBB 01/23/18 07/13/22 (Levoxyl) pantoprazole 40 mg tablet,delayed 40 mg PO BID 01/23/18 07/13/22 release (Protonix) rosuvastatin 40 mg tablet (Crestor) 40 mg PO HS 01/23/18 07/13/22 multivitamin 1 tab PO QAM 11/11/18 07/13/22 metoprolol succinate 25 mg 25 mg PO QAM 10/22/20 07/13/22 tablet,extended release 24 hr nabumetone 500 mg tablet 500 mg PO BID 11/29/21 07/13/22 torsemide 20 mg tablet 20 mg PO DAILY 11/29/21 07/13/22 cefuroxime axetil 500 mg tablet 500 mg PO BID 07/13/22 07/13/22 gabapentin 300 mg capsule 300 mg PO BID 07/13/22 07/13/22 ondansetron HCl 4 mg tablet 4 mg PO Q8H PRN Nausea And Vomiting 07/13/22 07/13/22 trazodone 50 mg tablet 50 mg PO HS 07/13/22 07/13/22 Previous Rx's Medication Instructions Recorded apixaban 2.5 mg tablet (Eliquis) 2.5 mg PO BID #180 tabs 03/22/21 buspirone 10 mg tablet 10 mg PO BID #60 tabs 03/22/21 zolpidem 5 mg tablet 5 mg PO HS PRN Sleep #30 tabs 06/27/22 Results & Data (ED) Vital Signs Vital Signs - 24 hr 07/13/22 19:16 07/13/22 19:15 07/13/22 19:52 Temperature 36.8 C Temperature Source Temporal Artery Scan Pulse Rate 97 H 91 H Pulse Rate [Right Finger] 85 Respiratory Rate 20 22 Respiratory Effort / Characteristics Non-Labored Spontaneous Respiratory Depth Normal Blood Pressure 200/109 H Blood Pressure [Right Arm] 186/99 H Blood Pressure Mean 139 Blood Pressure Mean [Right Arm] 128 Blood Pressure Position [Right Arm] Lying Pulse Oximetry 97 99 Oxygen Delivery Method Room Air Room Air Sepsis Recent Fever Within 48 Hours No Sepsis New/Unexplained Change in Mental Status N/A Sepsis Action Taken by Nursing No Action Required 07/13/22 21:49 Temperature Temperature Source Pulse Rate 133 H Pulse Rate [Right Finger] Respiratory Rate Respiratory Effort / Characteristics Respiratory Depth Blood Pressure Blood Pressure [Right Arm] Blood Pressure Mean Blood Pressure Mean [Right Arm] Blood Pressure Position [Right Arm] Pulse Oximetry Oxygen Delivery Method Sepsis Recent Fever Within 48 Hours Sepsis New/Unexplained Change in Mental Status Sepsis Action Taken by Long-Term Medications Current Medication List: was personally reviewed by me Laboratory Data Attestation: I reviewed the patient's lab results. 07/13/22 19:28 07/13/22 19:28 Lab Results 07/13/22 07/13/22 07/13/22 Range/Units 19:28 19:28 19:28 WBC 6.91 (4.8-10.8) K/ul RBC 3.87 L (4.20-5.40) M/uL Hgb 11.9 L (12.0-16.0) g/dl POC Hgb (12.0-16.0) g/dl Hct 34.9 L (37.0-47.0) % POC Hct (37-47) % MCV 90.2 (80.0-100.0) fL MCH 30.7 (25.0-34.0) pg MCHC 34.1 (32.0-36.0) g/dL RDW Std Deviation 43.8 (36.4-46.3) fL RDW Coeff of Howie 13.3 (11.5-14.5) % Plt Count 201 (130-400) K/uL MPV 10.1 (9.4-12.4) fL Immature Gran % (Auto) 0.4 % Neut % (Auto) 56.3 % Lymph % (Auto) 26.9 % [place] % (Auto) 12.6 % Eos % (Auto) 3.2 % Baso % (Auto) 0.6 % Neut # (Auto) 3.89 (1.40-6.50) K/uL Lymph # (Auto) 1.86 (1.2-3.4) K/uL [place] # (Auto) 0.87 H (0.11-0.59) K/uL Eos # (Auto) 0.22 (0-0.50) K/uL Baso # (Auto) 0.04 (0-0.2) K/uL Immature Gran # (Auto) 0.03 (0.01-0.20) K/uL PT 12.0 (9.0-12.0) Seconds INR 1.1 (0.9-1.1) APTT 25.4 (21.0-31.0) Seconds PTT Ratio 0.9 POC Sodium (135-144) mmol/L Sodium 139 (136-145) mmol/L POC Potassium (3.3-5.0) mmol/L Potassium 4.0 (3.5-5.1) mmol/L POC Chloride (101-112) mmol/L Chloride 106 (98-107) mmol/L Carbon Dioxide 23 (21-32) mmol/L POC Total CO2 (24-31) mmol/L Anion Gap 10 (3-11) POC Anion Gap (16-25) mmol/L POC BUN (7-18) mg/dl BUN 15 (6-23) mg/dl Creatinine 1.04 (0.6-1.2) mg/dl POC Creatinine (0.6-1.3) mg/dl Est Cr Clr Drug Dosing 37.0 ml/min Est GFR ( Amer) 56.7 ml/min Est GFR (Non-Af Amer) 49.0 ml/min BUN/Creatinine Ratio 14.4 (10-20) Glucose 90 (70-99(Fasting)) mg/dl POC Glucose (other) (70-99) mg/dl Calcium 9.8 (8.6-10.3) mg/dl POC Ioniz Calcium Tono (1.12-1.32) mmol/l Magnesium 1.7 (1.7-2.4) mg/dl Total Bilirubin 0.5 (0.2-1.0) mg/dl AST 20 (13-39) U/L ALT 11 (7-52) U/L Alkaline Phosphatase 59 (34-104) U/L Troponin I High Sens 14.4 H (0-14) pg/ml Total Protein 7.2 (6.0-8.3) gm/dl Albumin 3.7 (3.4-5.0) gm/dl Globulin 3.5 (2.5-4.0) gm/dl Albumin/Globulin Ratio 1.1 (0.9-2) Urine Color Urine Appearance (Clear) Urine pH (4.5-7.5) Ur Specific [place] (1.000-1.030) Urine Protein (Negative) Urine Glucose (UA) (Negative) Urine Ketones (Negative) Urine Blood (Negative) Urine Nitrite (Negative) Urine Bilirubin (Negative) Urine Urobilinogen (Negative) Ur Leukocyte Esterase (Negative) Urine WBC (Auto) (0-5) /hpf Urine RBC (Auto) (0-4) /hpf U Hyaline Cast (Auto) (0-5) /lpf U Epithel Cells (Auto) (0-5) /lpf Urine Bacteria (Auto) (Negative) 07/13/22 07/13/22 Range/Units 19:34 19:47 WBC (4.8-10.8) K/ul RBC (4.20-5.40) M/uL Hgb (12.0-16.0) g/dl POC Hgb 11.9 L (12.0-16.0) g/dl Hct (37.0-47.0) % POC Hct 35 L (37-47) % MCV (80.0-100.0) fL MCH (25.0-34.0) pg MCHC (32.0-36.0) g/dL RDW Std Deviation (36.4-46.3) fL RDW Coeff of Howie (11.5-14.5) % Plt Count (130-400) K/uL MPV (9.4-12.4) fL Immature Gran % (Auto) % Neut % (Auto) % Lymph % (Auto) % [place] % (Auto) % Eos % (Auto) % Baso % (Auto) % Neut # (Auto) (1.40-6.50) K/uL Lymph # (Auto) (1.2-3.4) K/uL [place] # (Auto) (0.11-0.59) K/uL Eos # (Auto) (0-0.50) K/uL Baso # (Auto) (0-0.2) K/uL Immature Gran # (Auto) (0.01-0.20) K/uL PT (9.0-12.0) Seconds INR (0.9-1.1) APTT (21.0-31.0) Seconds PTT Ratio POC Sodium 141 (135-144) mmol/L Sodium (136-145) mmol/L POC Potassium 4.0 (3.3-5.0) mmol/L Potassium (3.5-5.1) mmol/L POC Chloride 107 (101-112) mmol/L Chloride (98-107) mmol/L Carbon Dioxide (21-32) mmol/L POC Total CO2 22 L (24-31) mmol/L Anion Gap (3-11) POC Anion Gap 17.0 (16-25) mmol/L POC BUN 14 (7-18) mg/dl BUN (6-23) mg/dl Creatinine (0.6-1.2) mg/dl POC Creatinine 1.0 (0.6-1.3) mg/dl Est Cr Clr Drug Dosing ml/min Est GFR ( Amer) ml/min Est GFR (Non-Af Amer) ml/min BUN/Creatinine Ratio (10-20) Glucose (70-99(Fasting)) mg/dl POC Glucose (other) 95 (70-99) mg/dl Calcium (8.6-10.3) mg/dl POC Ioniz Calcium Tono 1.32 (1.12-1.32) mmol/l Magnesium (1.7-2.4) mg/dl Total Bilirubin (0.2-1.0) mg/dl AST (13-39) U/L ALT (7-52) U/L Alkaline Phosphatase (34-104) U/L Troponin I High Sens (0-14) pg/ml Total Protein (6.0-8.3) gm/dl Albumin (3.4-5.0) gm/dl Globulin (2.5-4.0) gm/dl Albumin/Globulin Ratio (0.9-2) Urine Color Yellow Urine Appearance Clear (Clear) Urine pH 7.5 (4.5-7.5) Ur Specific [place] 1.017 (1.000-1.030) Urine Protein 1+ H (Negative) Urine Glucose (UA) Negative (Negative) Urine Ketones Negative (Negative) Urine Blood Negative (Negative) Urine Nitrite Negative (Negative) Urine Bilirubin Negative (Negative) Urine Urobilinogen Negative (Negative) Ur Leukocyte Esterase Negative (Negative) Urine WBC (Auto) 1-5 (0-5) /hpf Urine RBC (Auto) 0-4 (0-4) /hpf U Hyaline Cast (Auto) 5-10 H (0-5) /lpf U Epithel Cells (Auto) 20-30 H (0-5) /lpf Urine Bacteria (Auto) Negative (Negative) Administered Medications Discontinued Medications Ioversol (Optiray 320 500ml) 106 ml IV ONCE ONE Stop: 07/13/22 20:45 Last Admin: 07/13/22 20:45 Dose: 106 ml Documented By: SAMIR Lorazepam (Lorazepam 2 Mg/1 Ml Vial) 0.5 mg IV NOW STA Stop: 07/13/22 19:21 Last Admin: 07/13/22 19:42 Dose: 0.5 mg Documented By: SANGEETHA Ondansetron HCl (Ondansetron Inj 2 Mg/Ml 2 Ml Vial) 4 mg IV NOW STA Stop: 07/13/22 19:21 Last Admin: 07/13/22 19:43 Dose: 4 mg Documented By: SANGEETHA Imaging Data Attestation: I personally reviewed and interpreted this imaging study as follows: My Impression: 1 view chest x-ray was obtained in the emergency department. My interpretation is no definite infiltrate, previous surgery noted with bilateral shoulder replacements, calcified aortic knob, this was compared to a chest x-ray from November 29, 2021. No changes were noted. Final report pending. Radiologist's Impression: Head CT 07/13/22 19:20 Exam(s): CT HEAD Without Contrast EXAM: CT Head Without Intravenous Contrast CLINICAL HISTORY: Reason for exam: neuro deficit, acute stroke suspected. TECHNIQUE: Axial computed tomography images of the head/brain without intravenous contrast. CTDI is 29.46 mGy and DLP is 448.01 mGy-cm. Automated exposure control was utilized for the study. A dose lowering technique was utilized adhering to the principles of ALARA. COMPARISON: No relevant prior studies available. FINDINGS: Brain: Unremarkable. No hemorrhage. No significant white matter disease. No edema. Ventricles: Unremarkable. No ventriculomegaly. Bones/joints: Unremarkable. No acute fracture. Soft tissues: Unremarkable. Sinuses: Unremarkable as visualized. No acute sinusitis. Mastoid air cells: Unremarkable as visualized. No mastoid effusion. IMPRESSION: Normal head/brain CT. Electronically signed by: Jeffy Mclaughlin MD 07/13/22 21:26 PM Head CTA 07/13/22 19:20 Exam(s): CTA HEAD With Contrast IV Amt: 106ml optiray 320 EXAM: CT Angiography Head With Intravenous Contrast CLINICAL HISTORY: Reason for exam: neuro deficit, acute stroke suspected. TECHNIQUE: Axial computed tomographic angiography images of the head with intravenous contrast. CTDI is 18.16 mGy and DLP is 9.08 mGy-cm. Automated exposure control was utilized for the study. A dose lowering technique was utilized adhering to the principles of ALARA. MIP reconstructed images were created and reviewed. CONTRAST: Patient received 106ml optiray 320 of IV contrast COMPARISON: No relevant prior studies available. FINDINGS: Right internal carotid artery: No acute findings. Intracranial segment is patent with no significant stenosis. No aneurysm. Right anterior cerebral artery: Unremarkable. No occlusion or significant stenosis. No aneurysm. Right middle cerebral artery: Unremarkable. No occlusion or significant stenosis. No aneurysm. Right posterior cerebral artery: Unremarkable. No occlusion or significant stenosis. No aneurysm. Right vertebral artery: Unremarkable as visualized. Left internal carotid artery: No acute findings. Intracranial segment is patent with no significant stenosis. No aneurysm. Left anterior cerebral artery: Unremarkable. No occlusion or significant stenosis. No aneurysm. Left middle cerebral artery: Unremarkable. No occlusion or significant stenosis. No aneurysm. Left posterior cerebral artery: Unremarkable. No occlusion or significant stenosis. No aneurysm. Left vertebral artery: Unremarkable as visualized. Basilar artery: Unremarkable. No occlusion or significant stenosis. No aneurysm. IMPRESSION: Normal head CTA. Electronically signed by: Jeffy Mclaughlin MD 07/13/22 21:27 PM Neck CTA 07/13/22 19:20 Exam(s): CTA NECK With Contrast IV Amt: 106ml optiray 320 EXAM: CT Neck With Intravenous Contrast CLINICAL HISTORY: Reason for exam: neuro deficit, acute stroke suspected. TECHNIQUE: Routine carotid CT protocol was performed with intravenous contrast. NASCET criteria using the distal ICAs for comparison were used for evaluation of stenoses. CTDI is 12.02 mGy and DLP is 421.22 mGy-cm. Automated exposure control was utilized for the study. A dose lowering technique was utilized adhering to the principles of ALARA. CONTRAST: Patient received 106ml optiray 320 of IV contrast COMPARISON: None. FINDINGS: VASCULATURE: Right common carotid artery: Unremarkable. No occlusion or significant stenosis. No dissection. Right internal carotid artery: Unremarkable. Extracranial segment is patent with no occlusion or significant stenosis. No dissection. Right external carotid artery: Unremarkable. No occlusion. Right vertebral artery: Unremarkable. No occlusion or significant stenosis. No dissection. Left common carotid artery: Unremarkable. No occlusion or significant stenosis. No dissection. Left internal carotid artery: Unremarkable. Extracranial segment is patent with no occlusion or significant stenosis. No dissection. Left external carotid artery: Unremarkable. No occlusion. Left vertebral artery: Unremarkable. No occlusion or significant stenosis. No dissection. NECK: Bones/joints: Unremarkable. Soft tissues: Unremarkable. Lung apices: Clear. CAROTID STENOSIS REFERENCE USING NASCET CRITERIA: % ICA stenosis = (1 - narrowest ICA diameter/diameter of distal cervical ICA) x 100. Mild - <50% stenosis. Moderate - 50-69% stenosis. Severe - 70-94% stenosis. Near occlusion - 95-99% stenosis. Occluded - 100% stenosis. IMPRESSION: Negative CTA neck. Electronically signed by: Jeffy Mclaughlin MD 07/13/22 21:27 PM Discharge Plan Visit Data Chief Complaint: Hypertension Stated Complaint: Vomiting, Dizziness, Headache ED Provider: Delmar Bar Discharge Problem: Vertigo, Hypertension, AF (paroxysmal atrial fibrillation), Headache Patient Disposition: Being Evaluated by Hospitalist Forms Stand Alone Forms: [facility] Prescriptions Prescriptions: No Action multivitamin tablet 1 tab PO QAM zolpidem 5 mg tablet 5 mg PO HS PRN (Reason: Sleep) Qty: 30 1RF buspirone 10 mg tablet 10 mg PO BID Qty: 60 5RF Eliquis 2.5 mg tablet 2.5 mg PO BID Qty: 180 0RF torsemide 20 mg tablet 20 mg PO DAILY nabumetone 500 mg tablet 500 mg PO BID levothyroxine [Levoxyl] 100 mcg Tablet 100 mcg PO DAILYBB pantoprazole [Protonix] 40 mg Tablet,Delayed Release (Dr/Ec) 40 mg PO BID rosuvastatin [Crestor] 40 mg Tablet 40 mg PO HS metoprolol succinate 25 mg tablet extended release 24 hr 25 mg PO QAM ondansetron HCl 4 mg tablet 4 mg PO Q8H PRN (Reason: Nausea And Vomiting) cefuroxime axetil 500 mg tablet 500 mg PO BID Rx Instructions: BEGIN 07/12/22 X 10 DAYS gabapentin 300 mg capsule 300 mg PO BID trazodone 50 mg tablet 50 mg PO HS Referrals Referrals: Con Coughlin MD [Primary Care Provider] -
[2022-07-13 19:49] LABS: Basophils # (auto) 0.04 K/uL (0-0.2); Basophils % (auto) 0.6 %; Eosinophils # (auto) 0.22 K/uL (0-0.50); Eosinophils % (auto) 3.2 %; Hematocrit (blood only) 34.9 % (37.0-47.0); Hemoglobin 11.9 g/dl (12.0-16.0); Immature Granulocytes # (auto) 0.03 K/uL (0.01-0.20); Immature Granulocytes % (auto) 0.4 %; Lymphocytes # (auto) 1.86 K/uL (1.2-3.4); Lymphocytes % (auto) 26.9 %; Mean Corpuscular Hemoglobin 30.7 pg (25.0-34.0); Mean Corpuscular Hgb Conc 34.1 g/dL (32.0-36.0); Mean Corpuscular Volume 90.2 fL (80.0-100.0); Mean Platelet Volume 10.1 fL (9.4-12.4); Monocytes # (auto) 0.87 K/uL (0.11-0.59); Monocytes % (auto) 12.6 %; Neutrophils # (auto) 3.89 K/uL (1.40-6.50); Neutrophils % (auto) 56.3 %; Platelet Count 201 K/uL (130-400); RDW Coefficient of Variation 13.3 % (11.5-14.5); RDW Standard Deviation 43.8 fL (36.4-46.3); Red Blood Count 3.87 M/uL (4.20-5.40); White Blood Count 6.91 K/ul (4.8-10.8)
[2022-07-13 19:59] LABS: iSTAT Hemoglobin 11.9 g/dl (12.0-16.0); iSTAT Ionized Calcium 1.32 mmol/l (1.12-1.32)
[2022-07-13 20:06] LABS: Appearance Urine Clear (Clear); Bacteria Urine Automated Negative (Negative); Bilirubin Urine Negative (Negative); Blood Urine Negative (Negative); Color Urine Yellow; Epithelial Cell Urine Auto 20-30 /lpf (0-5); Glucose Urine UA Negative (Negative); Ketones Urine Negative (Negative); Leukocyte Esterase Urine Negative (Negative); Nitrite Urine Negative (Negative); RBC Urine Automated 0-4 /hpf (0-4); Specific Gravity Urine 1.017 (1.000-1.030); Urobilinogen Urine Negative (Negative); pH Urine 7.5 (4.5-7.5)
[2022-07-13 20:09] LABS: Albumin Globulin Ratio 1.1 (0.9-2); Albumin Level 3.7 gm/dl (3.4-5.0); BUN Creatinine Ratio 14.4 (10-20); Bilirubin,Total 0.5 mg/dl (0.2-1.0); Calcium 9.8 mg/dl (8.6-10.3); Est GFR (African American) 56.7 ml/min; Globulin 3.5 gm/dl (2.5-4.0); Magnesium 1.7 mg/dl (1.7-2.4); Total Protein 7.2 gm/dl (6.0-8.3)
[2022-07-13 20:16] LABS: Troponin I High Sensitivity 14.4 pg/ml (0-14)
[2022-07-13 20:17] LABS: Protein Urine 1+ (Negative)
[2022-07-13 20:21] LABS: INR 1.1 (0.9-1.1); Partial Thromboplastin Ratio 0.9; Partial Thromboplastin Time 25.4 Seconds (21.0-31.0)
[2022-07-13] MEDS ORDERED: OPTIRAY 320 500ml IV ONE (20:44)
--- NOTE | 2022-07-13 21:26 | CT Scan Report ---
Exam(s): CT HEAD Without Contrast EXAM: CT Head Without Intravenous Contrast CLINICAL HISTORY: Reason for exam: neuro deficit, acute stroke suspected. TECHNIQUE: Axial computed tomography images of the head/brain without intravenous contrast. CTDI is 29.46 mGy and DLP is 448.01 mGy-cm. Automated exposure control was utilized for the study. A dose lowering technique was utilized adhering to the principles of ALARA. COMPARISON: No relevant prior studies available. FINDINGS: Brain: Unremarkable. No hemorrhage. No significant white matter disease. No edema. Ventricles: Unremarkable. No ventriculomegaly. Bones/joints: Unremarkable. No acute fracture. Soft tissues: Unremarkable. Sinuses: Unremarkable as visualized. No acute sinusitis. Mastoid air cells: Unremarkable as visualized. No mastoid effusion. IMPRESSION: Normal head/brain CT. Electronically signed by: Jeffy Mclaughlin MD 07/13/22 21:26 PM
--- NOTE | 2022-07-13 21:27 | CT Scan Report ---
Exam(s): CTA HEAD With Contrast IV Amt: 106ml optiray 320 EXAM: CT Angiography Head With Intravenous Contrast CLINICAL HISTORY: Reason for exam: neuro deficit, acute stroke suspected. TECHNIQUE: Axial computed tomographic angiography images of the head with intravenous contrast. CTDI is 18.16 mGy and DLP is 9.08 mGy-cm. Automated exposure control was utilized for the study. A dose lowering technique was utilized adhering to the principles of ALARA. MIP reconstructed images were created and reviewed. CONTRAST: Patient received 106ml optiray 320 of IV contrast COMPARISON: No relevant prior studies available. FINDINGS: Right internal carotid artery: No acute findings. Intracranial segment is patent with no significant stenosis. No aneurysm. Right anterior cerebral artery: Unremarkable. No occlusion or significant stenosis. No aneurysm. Right middle cerebral artery: Unremarkable. No occlusion or significant stenosis. No aneurysm. Right posterior cerebral artery: Unremarkable. No occlusion or significant stenosis. No aneurysm. Right vertebral artery: Unremarkable as visualized. Left internal carotid artery: No acute findings. Intracranial segment is patent with no significant stenosis. No aneurysm. Left anterior cerebral artery: Unremarkable. No occlusion or significant stenosis. No aneurysm. Left middle cerebral artery: Unremarkable. No occlusion or significant stenosis. No aneurysm. Left posterior cerebral artery: Unremarkable. No occlusion or significant stenosis. No aneurysm. Left vertebral artery: Unremarkable as visualized. Basilar artery: Unremarkable. No occlusion or significant stenosis. No aneurysm. IMPRESSION: Normal head CTA. Electronically signed by: Jeffy Mclaughlin MD 07/13/22 21:27 PM
--- NOTE | 2022-07-13 21:28 | CT Scan Report ---
Exam(s): CTA NECK With Contrast IV Amt: 106ml optiray 320 EXAM: CT Neck With Intravenous Contrast CLINICAL HISTORY: Reason for exam: neuro deficit, acute stroke suspected. TECHNIQUE: Routine carotid CT protocol was performed with intravenous contrast. NASCET criteria using the distal ICAs for comparison were used for evaluation of stenoses. CTDI is 12.02 mGy and DLP is 421.22 mGy-cm. Automated exposure control was utilized for the study. A dose lowering technique was utilized adhering to the principles of ALARA. CONTRAST: Patient received 106ml optiray 320 of IV contrast COMPARISON: None. FINDINGS: VASCULATURE: Right common carotid artery: Unremarkable. No occlusion or significant stenosis. No dissection. Right internal carotid artery: Unremarkable. Extracranial segment is patent with no occlusion or significant stenosis. No dissection. Right external carotid artery: Unremarkable. No occlusion. Right vertebral artery: Unremarkable. No occlusion or significant stenosis. No dissection. Left common carotid artery: Unremarkable. No occlusion or significant stenosis. No dissection. Left internal carotid artery: Unremarkable. Extracranial segment is patent with no occlusion or significant stenosis. No dissection. Left external carotid artery: Unremarkable. No occlusion. Left vertebral artery: Unremarkable. No occlusion or significant stenosis. No dissection. NECK: Bones/joints: Unremarkable. Soft tissues: Unremarkable. Lung apices: Clear. CAROTID STENOSIS REFERENCE USING NASCET CRITERIA: % ICA stenosis = (1 - narrowest ICA diameter/diameter of distal cervical ICA) x 100. Mild - <50% stenosis. Moderate - 50-69% stenosis. Severe - 70-94% stenosis. Near occlusion - 95-99% stenosis. Occluded - 100% stenosis. IMPRESSION: Negative CTA neck. Electronically signed by: Jeffy Mclaughlin MD 07/13/22 21:27 PM
[2022-07-13] MEDS ORDERED: PROMETHAZINE 6.25 MG/50.25 ML BAG IV STA (22:00)
[2022-07-13] MEDS ORDERED: KETOROLAC TROMETHAMINE 15 MG/ML VIAL IV ONE (22:00)
[2022-07-13] MEDS ORDERED: MoRPHine SULFATE 4 MG/ML 1 ML CARP\\VIAL IV STA (22:36)
[2022-07-14] MEDS ORDERED: SODIUM CHLORIDE 0.9% 1000ML 1,000 ML IV SCH (01:28)
[2022-07-14] MEDS ORDERED: MoRPHine SULFATE 4 MG/ML 1 ML CARP\\VIAL IV PRN ×2 (01:28→11:08)
[2022-07-14] MEDS ORDERED: ONDANSETRON INJ 2 MG/ML 2 ML VIAL IV PRN ×2 (01:28→08:33)
[2022-07-14] MEDS ORDERED: NITROGLYCERIN SL 0.4 MG/TAB TAB SL PRN (01:28)
--- NOTE | 2022-07-14 02:23 | History and Physical Report ---
DATE OF ADMISSION: 07/13/2022. CHIEF COMPLAINT: Nausea, vomiting, dizziness, headache. HISTORY OF PRESENT ILLNESS: This is an 83-year-old female with past medical history significant for thoracic aortic ectasia, chronic diastolic CHF, CAD status post CABG, hypertension, chronic atrial fibrillation, mild aortic stenosis, GERD, generalized osteoarthrosis, degenerative disk disease, history of low back pain, anxiety, insomnia, mixed incontinence, depression, history of gastric ulcer, who lives alone at home. Ambulates without support at home. Will use cane when going outside. Says she has no family. She takes care of herself, she drives herself. Comes because of severe headache starting yesterday morning and she has nausea, vomiting. She says she vomited three times today, no blood in the vomitus. Stools are black because she takes Pepto- Bismol. She also noticed some dizziness while standing and she also noted some elevated blood pressure. She called 911 and was brought into the ER. She denies any fever. She says she has no blurred visions, no earache. Has some runny nose, sore throat, and cough. It Looks like her PCP prescribed cefuroxime yesterday for bronchitis. Looks like in the ER, she was able to ambulate but says has some unsteadiness. Denies any chest pain currently, no shortness of breath. Denies abdominal pain. She says she is constipated. Normal bladder movements. No swelling in the legs. ALLERGIES: NITROGLYCERIN, ERGOTAMINE. PAST MEDICAL HISTORY: As mentioned above. PAST SURGICAL HISTORY: Liposuction, CABG, colonoscopy, EGD, repair of retinal tear, bilateral lasering of secondary cataract, cholecystectomy, bilateral shoulder joint reconstruction, tonsillectomy, adenoidectomy, total abdominal hysterectomy with removal of tubes, left total hip replacement. MEDICATIONS: The patient is on Eliquis 2.5 mg p.o. b.i.d., buspirone 10 mg p.o. b.i.d., cefuroxime 500 mg p.o. b.i.d., gabapentin 300 mg p.o. b.i.d., levothyroxine 100 mcg p.o. daily, metoprolol succinate 25 mg p.o. daily, multivitamins 1 tablet p.o. daily, nabumetone 500 mg p.o. b.i.d., Zofran 4 mg p.o. q. 8 hours p.r.n., Protonix 40 mg p.o. b.i.d., Crestor 40 mg p.o. at bedtime, torsemide 20 mg p.o. daily, trazodone 50 mg p.o. at bedtime, zolpidem 5 mg p.o. at bedtime p.r.n. FAMILY HISTORY: Significant for father has allergies; brother has CAD, dementia; mother of heart disorder, CHF; sister has CAD. SOCIAL HISTORY: , currently lives alone. No smoking. Alcohol once per week. No drug use. REVIEW OF SYSTEMS: As per HPI. Rest of review of systems is negative. PHYSICAL EXAMINATION: GENERAL: The patient is old and frail, not in acute distress. VITAL SIGNS: Temperature 36.8, pulse 86, respiratory rate 22, blood pressure 186/99, oxygen 99% on room air. HEENT: Pupils equal, round, and reactive to light. Oral mucosa moist. NECK: No JVD, no neck masses. CARDIOVASCULAR: S1 and S2 heard. Regular rate and rhythm. No murmur, no gallop. RESPIRATORY SYSTEM: Normal AP diameter. No accessory muscle use. No wheezing, no crackles. ABDOMEN: Soft, bowel sounds present, nontender, no distention. CENTRAL NERVOUS SYSTEM: Alert and oriented. No facial droop. Speech is clear. Power 5/5 in all extremities. Can lift and hold her lower extremities. Sensation is intact. No pronator drift. Coordination of movements normal. Position sense intact. EXTREMITIES: No edema, no erythema. LABORATORY DATA: WBC 6.9, hemoglobin 11.9, hematocrit 34.9, platelets 201. PT 12, INR 1.1, APTT 25.4. Sodium 139, potassium 4, chloride 106, CO2 of 23, BUN 15, creatinine 1.04, serum glucose 90, calcium 9.8, magnesium 1.7, total bilirubin 0.5, AST 20, ALT 11, alkaline phosphatase 59. Troponin I high sensitivity 14.4. Urinalysis negative. SARS-CoV-2 rapid test negative. CTA of the neck, no acute findings. CTA of the head, no acute findings. CT of the head without contrast, no acute findings. Chest x-ray, no acute findings. EKG: Sinus rhythm with a first-degree AV block at a rate of 91. ASSESSMENT AND PLAN: This is an 83-year-old female who presents with severe headache, nausea, vomiting, and dizziness. 1. Severe headache, nausea, vomiting, and dizziness: CTA of the head and neck and CT of the head are unremarkable. It could be from viral syndrome. Urinalysis negative. She is also recently having sore throat and cough and prescribed cefuroxime for bronchitis by PCP. Will monitor, supportive care. If not improving, will get MRI scan, neuro consult. Orthostatics. Monitor in the [employer]. IV fluids.Pain control. 2. History of chronic atrial fibrillation: On metoprolol succinate and Eliquis, which will be continued. 3. Chronic diastolic congestive heart failure: On torsemide, which will be continued .Getting gentle fluids. Will monitor for volume overload. 4. Hypothyroidism: Continue Synthroid. 5. Anxiety and depression: Continue buspirone and trazodone. 6. Arthritis: On nabumetone, which will be held for now. 7. History of coronary artery disease: Status post coronary artery bypass graft and beta brendan, Eliquis, and statin. 8. Deep venous thrombosis prophylaxis: On Eliquis. DISPOSITION: Closely monitor in the [facility] [employer]. PT/OT prior to discharge. Social service to help with discharge planning. Job ID: [id number] MTDD
[2022-07-14] MEDS: busPIRone 5 MG TAB PO SCH ×3 (02:27→21:10)
[2022-07-14] MEDS: APIXABAN 2.5 MG TAB PO SCH ×3 (02:27→21:10)
[2022-07-14] MEDS: cefUROXime axetil 500 MG TAB PO SCH ×3 (02:28→21:11)
[2022-07-14] MEDS: ZOLPIDEM TARTRATE 5 MG TAB PO PRN ×2 (02:30→22:02)
[2022-07-14] MEDS: LEVOTHYROXINE SODIUM 100 MCG TABLET PO SCH (05:36)
[2022-07-14 06:23] LABS: Basophils # (auto) 0.04 K/uL (0-0.2); Basophils % (auto) 0.6 %; Eosinophils # (auto) 0.52 K/uL (0-0.50); Eosinophils % (auto) 8.3 %; Hematocrit (blood only) 30.2 % (37.0-47.0); Hemoglobin 10.1 g/dl (12.0-16.0); Immature Granulocytes # (auto) 0.03 K/uL (0.01-0.20); Immature Granulocytes % (auto) 0.5 %; Lymphocytes # (auto) 2.16 K/uL (1.2-3.4); Lymphocytes % (auto) 34.3 %; Mean Corpuscular Hemoglobin 30.4 pg (25.0-34.0); Mean Corpuscular Hgb Conc 33.4 g/dL (32.0-36.0); Mean Platelet Volume 10.4 fL (9.4-12.4); Monocytes % (auto) 15.9 %; Neutrophils # (auto) 2.55 K/uL (1.40-6.50); Neutrophils % (auto) 40.4 %; Platelet Count 168 K/uL (130-400); RDW Coefficient of Variation 13.3 % (11.5-14.5); Red Blood Count 3.32 M/uL (4.20-5.40)
[2022-07-14 06:36] LABS: BUN Creatinine Ratio 13.3 (10-20); Calcium 9.3 mg/dl (8.6-10.3); Creatinine Clr Calc Pharmacy 34.1 ml/min; Est GFR (African American) 51.3 ml/min; Est GFR (Non-African American) 44.3 ml/min; Magnesium 1.7 mg/dl (1.7-2.4); Potassium 3.5 mmol/L (3.5-5.1)
--- NOTE | 2022-07-14 06:51 | XRay Report ---
XR chest 1V portable CLINICAL HISTORY: neuro deficit, acute stroke suspected COMPARISON STUDY: Chest radiograph November 29, 2021. Chest CT December 01, 2021. FINDINGS: Bilateral shoulder arthroplasties are incidentally noted. There are median sternotomy wires . Cardiomegaly is unchanged. There is a hiatal hernia. There is pulmonary vascular congestion. No pne umothorax or pleural effusion is present. There is no consolidation to suggest pneumonia. IMPRESSION: Cardiomegaly with pulmonary vascular congestion. ACT 112: Negative or not required by law. Electronically signed by: Anthony Borden M.D. 07/14/2022 6:49 AM
[2022-07-14] MEDS: TORSEMIDE 20 MG TAB PO SCH (08:32)
[2022-07-14] MEDS: GABAPENTIN 300 MG CAP PO SCH ×2 (08:32→21:11)
[2022-07-14] MEDS: MULTIVITAMIN TAB PO SCH (08:32)
[2022-07-14] MEDS: PANTOprazole 40 MG TAB PO SCH ×2 (08:33→21:11)
[2022-07-14] MEDS: METOPROLOL SUCC 25MG EXT REL TAB PO SCH (08:33)
--- NOTE | 2022-07-14 10:55 | Hospitalist Progress Note ---
Date of Service July 14, 2022 Assessment & Plan (1) Nausea & vomiting: (2) Dizziness: (3) Hypertension: Plan Nausea/vomiting/poor oral intake -Likely viral gastroenteritis -symptomatic support -appears dehydrated, will place back on NSS at 80 cc/hr +20mEq KCl -scheduled zofran for next 2 doses, reglan PRN Dizziness -likely due to above -orthostatic vitals negative -monitor on telemetry -PT/OT evaluation to help with discharge planning Headache -Tylenol as needed Chronic issues Paroxysmal A fib -eliquis 2.5mg BID, Toprol 25mg daily Chronic Diastolic CHF -Torsemide 20mg daily on hold. Resume when patient back to baseline -Appears hypovolemic Anxiety/depression -Buspirone 10mg BID, trazodone 50mg QHS Arthritis -d/c Nabumetone (she is at increased risk for PUD and she avoid NSAIDs) DVT ppx Already on Eliquis Admission and Anticipated Discharge Date Admission Date: July 13, 2022 Subjective Still with nausea, poor oral intake Some dry heaving [place] dizzy/light headed when she stood up to walk to rest room Review of Systems Review of Systems: as above Physical Exam Physical Exam: Appears nauseous, tired, non toxic ENMT: Mucous membrane dry, head is normocephalic, atraumatic Respiratory: Breathing comfortably on room air, no wheezing/rhonchi Cardiovascular: regular rate and rhythm, no murmurs/rubs/gallops Gastrointestinal (Abdomen): soft, non tender Musculoskeletal: No edema Skin: Poor skin turgor Neurologic: awake, alert, spontaneously moving extremities Results & Data Results & Data Vital Signs (Past 12 Hours) Vital Signs Temp Pulse Pulse Resp BP Pulse Ox O2 Del Method 07/14/22 09:06 Room Air 07/14/22 07:39 36.6 C 74 18 148/80 H 96 Room Air 07/14/22 07:00 66 07/14/22 03:10 36.9 C 75 18 135/81 97 Room Air 07/14/22 01:37 82 07/14/22 01:19 90 07/14/22 01:15 Room Air 07/14/22 01:15 36.6 C 101 H 18 155/66 H 96 Room Air 07/14/22 01:13 36.6 C 101 H 18 155/66 H 96 Room Air 07/14/22 00:51 128/72 07/13/22 23:43 81 18 161/82 H 98 Room Air 07/13/22 23:15 86 (3) Hypertension Hypertension type: unspecified Qualified Code(s): I10 - Essential (primary) hypertension
[2022-07-14] MEDS ORDERED: SODIUM CHLORIDE 0.9% 500 ML IV SCH (11:00)
[2022-07-14] MEDS ORDERED: MAGNESIUM SULFATE / D5W 1 GM/100 ML BAG IV ONE (11:01)
[2022-07-14] MEDS: D5NSS + 20MEQ KCL 20 MEQ/1,000 ML BAG IV SCH (11:35)
[2022-07-14] MEDS: METOCLOPRAMIDE HCL INJ 5 MG/ML 2 ML VIAL IV PRN (13:53)
--- NOTE | 2022-07-14 14:42 | Electrocardiogram Report ---
Test Reason : Blood Pressure : / mmHG Vent. Rate : 091 BPM Atrial Rate : 091 BPM P-R Int : 232 ms QRS Dur : 072 ms QT Int : 356 ms P-R-T Axes : 083 015 010 degrees QTc Int : 437 ms Sinus rhythm with 1st degree A-V block Otherwise normal ECG When compared with ECG of 08-MAY-2021 05:13, Sinus rhythm has replaced Atrial fibrillation Confirmed by Delmar Askew ([id number]) on 07/14/2022 2:41:50 PM Referred By: REFERRED SELF Confirmed By:Delmar Askew
[2022-07-14] MEDS: ONDANSETRON INJ 2 MG/ML 2 ML VIAL IV SCH ×2 (15:21→21:11)
[2022-07-14] MEDS: ACETAMINOPHEN 325 MG TAB PO PRN (21:12)
[2022-07-14] MEDS: traZODone HCL 50 MG TAB PO SCH (21:12)
[2022-07-14] MEDS: ROSUVASTATIN CALCIUM 20 MG TAB PO SCH (21:12)
[2022-07-15] MEDS: D5NSS + 20MEQ KCL 20 MEQ/1,000 ML BAG IV SCH (00:11)
[2022-07-15] MEDS: LEVOTHYROXINE SODIUM 100 MCG TABLET PO SCH (05:36)
[2022-07-15 06:39] LABS: Magnesium 1.8 mg/dl (1.7-2.4); Potassium 3.7 mmol/L (3.5-5.1)
[2022-07-15 06:44] LABS: BUN Creatinine Ratio 14.7 (10-20); Creatinine Clr Calc Pharmacy 29.1 ml/min; Est GFR (African American) 38.6 ml/min; Est GFR (Non-African American) 33.3 ml/min
[2022-07-15] MEDS: SODIUM CHLORIDE 0.9% 1000ML 1,000 ML IV SCH ×2 (09:19→19:30)
[2022-07-15] MEDS: MULTIVITAMIN TAB PO SCH (09:20)
[2022-07-15] MEDS: METOPROLOL SUCC 25MG EXT REL TAB PO SCH (09:20)
[2022-07-15] MEDS: busPIRone 5 MG TAB PO SCH ×2 (09:21→20:41)
[2022-07-15] MEDS: APIXABAN 2.5 MG TAB PO SCH ×2 (09:21→20:41)
[2022-07-15] MEDS: GABAPENTIN 300 MG CAP PO SCH ×2 (09:21→20:41)
[2022-07-15] MEDS: cefUROXime axetil 500 MG TAB PO SCH ×2 (09:21→20:41)
[2022-07-15] MEDS: PANTOprazole 40 MG TAB PO SCH ×2 (09:21→20:42)
[2022-07-15] MEDS: LOPERAMIDE HCL 2 MG CAP PO PRN (15:09)
--- NOTE | 2022-07-15 18:32 | Hospitalist Progress Note ---
Date of Service July 15, 2022 Assessment & Plan (1) Nausea & vomiting: (2) Dizziness: (3) Hypertension: Plan Nausea/vomiting/poor oral intake -Likely viral gastroenteritis -symptomatic support -continue IVF -reglan PRN Dizziness -likely due to above -orthostatic vitals negative -PAC on telemetry -PT/OT evaluation to help with discharge planning Headache -Tylenol as needed KIM -due to GI losses, continue IVF. Continue to hold torsemide Chronic issues Paroxysmal A fib -eliquis 2.5mg BID, Toprol 25mg daily Chronic Diastolic CHF -Torsemide 20mg daily on hold. Resume when patient back to baseline Anxiety/depression -Buspirone 10mg BID, trazodone 50mg QHS Arthritis -d/c Nabumetone (she is at increased risk for PUD and she avoid NSAIDs) DVT ppx Already on Eliquis Admission and Anticipated Discharge Date Admission Date: July 14, 2022 Subjective nausea has subsided Reports loose BM which progressed to watery No dizziness Reports left arm pain (she sleeps on left side) Overall feels better than yesterday PAC on telemetry Review of Systems Review of Systems: as above Physical Exam Physical Exam: appears stated age, non toxic ENMT: Mucous membrane moist, skin turgor is improved Respiratory: breathing comfortably on room air, no wheezing/rhonchi/rales Cardiovascular: regular rate and rhythm, no murmurs/rubs Gastrointestinal (Abdomen): soft, non tender Musculoskeletal: no edema Neurologic: awake, observed ambulating in room Results & Data Results & Data Vital Signs (Past 12 Hours) Vital Signs Temp Pulse Pulse Resp BP BP Pulse Ox 07/15/22 18:19 36.4 C L 86 16 147/84 H 96 07/15/22 14:17 71 07/15/22 15:56 36.7 C 71 16 152/79 H 97 07/15/22 11:49 36.5 C 74 18 156/82 H 99 07/15/22 07:27 36.6 C 76 16 151/75 H 96 O2 Del Method 07/15/22 18:19 Room Air 07/15/22 14:17 07/15/22 15:56 Room Air 07/15/22 11:49 Room Air 07/15/22 07:27 Room Air (3) Hypertension Hypertension type: unspecified Qualified Code(s): I10 - Essential (primary) hypertension
[2022-07-15] MEDS: ROSUVASTATIN CALCIUM 20 MG TAB PO SCH (20:42)
[2022-07-15] MEDS: ZOLPIDEM TARTRATE 5 MG TAB PO PRN (20:43)
[2022-07-15] MEDS: METOCLOPRAMIDE HCL INJ 5 MG/ML 2 ML VIAL IV PRN (20:43)
[2022-07-15] MEDS: traZODone HCL 50 MG TAB PO SCH (20:43)
[2022-07-16] MEDS ORDERED: OLANZapine 10 MG/2.1 ML SDV IM PRN (02:06)
[2022-07-16] MEDS ORDERED: PROMETHAZINE HCL 6.25 MG in SODIUM CHLORIDE 0.9% 50 ML IV PRN (02:07)
[2022-07-16 03:04] LABS: Basophils # (auto) 0.05 K/uL (0-0.2); Basophils % (auto) 0.8 %; Eosinophils # (auto) 0.49 K/uL (0-0.50); Eosinophils % (auto) 8.3 %; Hemoglobin 9.6 g/dl (12.0-16.0); Immature Granulocytes # (auto) 0.02 K/uL (0.01-0.20); Immature Granulocytes % (auto) 0.3 %; Lymphocytes # (auto) 2.12 K/uL (1.2-3.4); Lymphocytes % (auto) 35.9 %; Mean Corpuscular Hemoglobin 29.8 pg (25.0-34.0); Mean Corpuscular Volume 93.2 fL (80.0-100.0); Mean Platelet Volume 9.6 fL (9.4-12.4); Monocytes # (auto) 0.76 K/uL (0.11-0.59); Monocytes % (auto) 12.9 %; Neutrophils # (auto) 2.47 K/uL (1.40-6.50); Neutrophils % (auto) 41.8 %; Platelet Count 160 K/uL (130-400); RDW Coefficient of Variation 13.4 % (11.5-14.5); RDW Standard Deviation 45.6 fL (36.4-46.3); Red Blood Count 3.22 M/uL (4.20-5.40); White Blood Count 5.91 K/ul (4.8-10.8)
[2022-07-16 03:15] LABS: BUN Creatinine Ratio 17.2 (10-20); Creatinine Clr Calc Pharmacy 31.1 ml/min; Est GFR (African American) 41.8 ml/min; Magnesium 1.8 mg/dl (1.7-2.4)
[2022-07-16] MEDS: SODIUM CHLORIDE 0.9% 1000ML 1,000 ML IV SCH ×2 (05:49→16:24)
[2022-07-16] MEDS: LEVOTHYROXINE SODIUM 100 MCG TABLET PO SCH (06:04)
[2022-07-16] MEDS: PANTOprazole 40 MG TAB PO SCH ×2 (09:19→20:02)
[2022-07-16] MEDS: MULTIVITAMIN TAB PO SCH (09:19)
[2022-07-16] MEDS: METOPROLOL SUCC 25MG EXT REL TAB PO SCH (09:19)
[2022-07-16] MEDS: APIXABAN 2.5 MG TAB PO SCH ×2 (09:20→20:01)
[2022-07-16] MEDS: cefUROXime axetil 500 MG TAB PO SCH (09:20)
[2022-07-16] MEDS: busPIRone 5 MG TAB PO SCH ×2 (09:20→20:01)
--- NOTE | 2022-07-16 10:52 | Electrocardiogram Report ---
Test Reason : Blood Pressure : / mmHG Vent. Rate : 060 BPM Atrial Rate : 072 BPM P-R Int : 252 ms QRS Dur : 070 ms QT Int : 398 ms P-R-T Axes : 070 012 022 degrees QTc Int : 398 ms Sinus rhythm with marked sinus arrhythmia with 1st degree A-V block When compared with ECG of 13-JUL-2022 19:16, Vent. rate has decreased BY 31 BPM Confirmed by Rocco Montelongo ([id number]) on 07/16/2022 10:52:39 AM Referred By: REFERRED SELF Confirmed By:Rocco Montelongo
[2022-07-16] MEDS ORDERED: ONDANSETRON INJ 2 MG/ML 2 ML VIAL IV PRN (13:47)
--- NOTE | 2022-07-16 15:55 | Hospitalist Progress Note ---
Date of Service July 16, 2022 Assessment & Plan (1) Nausea & vomiting: (2) Dizziness: (3) Hypertension: Plan Nausea/vomiting/poor oral intake -Likely viral gastroenteritis -symptomatic support -continue IVF -stool PCR and c diff ordered but not yet collected -Did well on scheduled zofran. Will order scheduled zofran x 1 day. Dizziness, now resolved -likely due to above -orthostatic vitals negative -PAC on telemetry -Evaluated by PT yesterday and recommended home with home health. May need repeat PT eval prior to discharge depending on LOS Headache -Tylenol as needed KIM -due to GI losses, continue IVF. Continue to hold torsemide Chronic issues Paroxysmal A fib -eliquis 2.5mg BID, Toprol 25mg daily Chronic Diastolic CHF -Torsemide 20mg daily on hold. Resume when gastroenteritis resolves Anxiety/depression -Buspirone 10mg BID, trazodone 50mg QHS -start melatonin 3mg QHS Arthritis -d/c Nabumetone (she is at increased risk for PUD and she avoid NSAIDs) DVT ppx Already on Eliquis Admission and Anticipated Discharge Date Admission Date: July 14, 2022 Subjective Reports feeling terrible. Worsening nausea again, loose stools (nurse describes stool as semi formed but not watery) Denies further dizziness Yesterday had trouble sleeping so received ambien, afterwards was confused Patient reports feeling restless and forgot her reading glasses so she has "nothing to do, I'm loosing my mind!" Telemetry: PACs Review of Systems Review of Systems: as above Physical Exam Physical Exam: Non toxic, no acute distress Respiratory: clear bilaterally, no wheezing/rhonchi/rales Cardiovascular: Regular rate and rhythm, no murmurs/rubs/gallops Gastrointestinal (Abdomen): soft, non tender Musculoskeletal: No edema Neurologic: awake, alert, spontaneously moving extremities Psychiatric: anxious Results & Data Results & Data Vital Signs (Past 12 Hours) Vital Signs Temp Pulse Resp BP BP Pulse Ox O2 Del Method 07/16/22 14:58 36.8 C 73 16 155/77 H 96 Room Air 07/16/22 13:56 Room Air 07/16/22 10:55 36.7 C 81 16 131/69 97 Room Air 07/16/22 07:32 36.8 C 81 16 153/62 H 97 Room Air (3) Hypertension Hypertension type: unspecified Qualified Code(s): I10 - Essential (primary) hypertension
[2022-07-16] MEDS: ONDANSETRON INJ 2 MG/ML 2 ML VIAL IV SCH ×2 (16:26→21:13)
[2022-07-16] MEDS: BUTT PASTE (ZINC OXIDE 16%) 171 APPLN/57 GM JAR EXT PRN (19:50)
[2022-07-16] MEDS: MELATONIN 3 MG TAB PO SCH ×2 (20:01→21:51)
[2022-07-16] MEDS: ROSUVASTATIN CALCIUM 20 MG TAB PO SCH (20:01)
[2022-07-16] MEDS: traZODone HCL 50 MG TAB PO SCH ×2 (20:02→21:51)
[2022-07-16] MEDS: ACETAMINOPHEN 325 MG TAB PO PRN (21:12)
[2022-07-16] MEDS: traMADol HCL 50 MG TABLET PO PRN (23:44)
[2022-07-16] MEDS ORDERED: Nursing to Pharmacy Communication SCH (23:45)
--- NOTE | 2022-07-16 23:57 | CT Scan Report ---
Exam(s): CT HEAD Without Contrast EXAM: CT Head Without Intravenous Contrast CLINICAL HISTORY: Reason for exam: pardo, noac. TECHNIQUE: Axial computed tomography images of the head/brain without intravenous contrast. Automated exposure control was utilized for the study. A dose lowering technique was utilized adhering to the principles of ALARA. COMPARISON: Head CT 07/13/2022 FINDINGS: Brain: No intracranial hemorrhage, mass-effect, or edema. Chronic right cerebellar infarct. Chronic microvascular ischemic changes. Ventricles: Unremarkable. Bones/joints: Unremarkable. No fracture. Soft tissues: Unremarkable. Sinuses: No acute sinusitis. Mastoid air cells: Unremarkable as visualized. IMPRESSION: No acute abnormality. Electronically signed by: Yunier Hanna MD 07/16/22 23:56 PM
[2022-07-17] MEDS: SODIUM CHLORIDE 0.9% 1000ML 1,000 ML IV SCH (02:50)
[2022-07-17] MEDS: ONDANSETRON INJ 2 MG/ML 2 ML VIAL IV SCH ×2 (03:11→09:02)
[2022-07-17] MEDS: LEVOTHYROXINE SODIUM 100 MCG TABLET PO SCH (05:36)
[2022-07-17 06:14] LABS: Hematocrit (blood only) 29.9 % (37.0-47.0); Hemoglobin 9.6 g/dl (12.0-16.0); Mean Corpuscular Hemoglobin 30.1 pg (25.0-34.0); Mean Corpuscular Hgb Conc 32.1 g/dL (32.0-36.0); Mean Corpuscular Volume 93.7 fL (80.0-100.0); Mean Platelet Volume 9.7 fL (9.4-12.4); Platelet Count 145 K/uL (130-400); RDW Coefficient of Variation 13.4 % (11.5-14.5); RDW Standard Deviation 45.7 fL (36.4-46.3); Red Blood Count 3.19 M/uL (4.20-5.40); White Blood Count 5.53 K/ul (4.8-10.8)
[2022-07-17 06:25] LABS: BUN Creatinine Ratio 12.3 (10-20); Calcium 9.1 mg/dl (8.6-10.3); Creatinine Clr Calc Pharmacy 37.1 ml/min; Est GFR (African American) 50.8 ml/min; Est GFR (Non-African American) 43.8 ml/min; Magnesium 1.7 mg/dl (1.7-2.4); Potassium 3.8 mmol/L (3.5-5.1)
[2022-07-17] MEDS: busPIRone 5 MG TAB PO SCH ×2 (08:23→20:55)
[2022-07-17] MEDS: APIXABAN 2.5 MG TAB PO SCH ×2 (08:23→20:56)
[2022-07-17] MEDS: METOPROLOL SUCC 25MG EXT REL TAB PO SCH (08:23)
[2022-07-17] MEDS: PANTOprazole 40 MG TAB PO SCH ×2 (08:23→20:55)
[2022-07-17] MEDS: MULTIVITAMIN TAB PO SCH (08:23)
[2022-07-17] MEDS: BUTT PASTE (ZINC OXIDE 16%) 171 APPLN/57 GM JAR EXT PRN (09:00)
--- NOTE | 2022-07-17 10:41 | Electrocardiogram Report ---
Test Reason : Blood Pressure : / mmHG Vent. Rate : 068 BPM Atrial Rate : 068 BPM P-R Int : 262 ms QRS Dur : 080 ms QT Int : 380 ms P-R-T Axes : 076 005 015 degrees QTc Int : 404 ms Sinus rhythm with 1st degree A-V block with Premature atrial complexes and non conducted PAC's Thom Septal infarct , age undetermined Abnormal ECG When compared with ECG of 15-JUL-2022 12:18, Premature atrial complexes are now Present Septal infarct is now Present Confirmed by Rocco Montelongo ([id number]) on 07/17/2022 10:41:11 AM Referred By: REFERRED SELF Confirmed By:Rocco Montelongo
[2022-07-17] MEDS ORDERED: hydrALAZINE HCL 20 MG/ML VIAL IV PRN (15:15)
[2022-07-17] MEDS: ONDANSETRON INJ 2 MG/ML 2 ML VIAL IV PRN (15:33)
[2022-07-17] MEDS: ACETAMINOPHEN 325 MG TAB PO PRN ×2 (15:55→20:54)
[2022-07-17] MEDS ORDERED: LORazepam 0.5 MG TAB PO ONE (16:28)
[2022-07-17] MEDS ORDERED: amLODIPine BESYLATE 5 MG TAB PO ONE (18:00)
--- NOTE | 2022-07-17 18:07 | Hospitalist Progress Note ---
Date of Service July 17, 2022 Assessment & Plan (1) Nausea & vomiting: (2) Dizziness: (3) Hypertension: Plan Nausea/vomiting/poor oral intake -Likely viral gastroenteritis -Stool studies pending --Obtain KUB -continue IVF as need Consider GI evaluation if needed Dizziness likely due to above orthostatic vitals negative PAC on telemetry, Resolved on Repeat EKG PT/OT as able Headache -CT Head:No acute abnormality. -Head/Neck CTA:Negative Consider MRI brain if no improvement KIM due to GI losses Hold torsemide Renal function improved after IV fluids Paroxysmal A fib Continue Eliquis 2.5mg BID, Toprol 25mg daily Chronic Diastolic CHF Torsemide 20mg daily on hold. Resume diuretics as able Monitor volume status Anxiety/depression -Buspirone 10mg BID, trazodone 50mg QHS -started melatonin 3mg QHS Arthritis -d/c Nabumetone--Hold for now DVT px Eliquis Admission and Anticipated Discharge Date Admission Date: July 14, 2022 Subjective Patient is seen and examined at bedside States having nausea and semiformed bowel movements today Anxious this afternoon associated with dyspnea Blood pressure elevated Also reports headache Denies any chest pain Review of Systems Review of Systems: All systems reviewed & are unremarkable except as noted in Subjective Physical Exam Physical Exam: Physical Exam: Vitals signs as noted above General Appearance:Moderately built and nourished, no apparent distress, Elderly Head: normocephalic, Atraumatic Eyes: normal inspection, EOMI Neck: supple, Trachea midline Respiratory/Chest: Normal breath sounds, CTA, No accessory muscle use Cardiovascular: S1, S2, No murmur Abdomen/GI:Soft, Non tender, Bowel sounds present Extremities/Musculoskeletal:normal inspection, Trace edema Neurologic/Psych:AAOX3, grossly no focal neurological deficits Skin: normal color, warm Results & Data Results & Data Vital Signs (Past 12 Hours) Vital Signs Temp Pulse Pulse Resp BP BP Pulse Ox 07/17/22 16:48 78 07/17/22 16:09 88 20 194/80 H 98 07/17/22 16:09 93 H 20 204/99 H 98 07/17/22 15:17 37.1 C 83 18 196/94 H 95 07/17/22 12:05 36.9 C 75 20 186/73 H 96 07/17/22 08:20 07/17/22 08:00 36.6 C 79 18 189/79 H 97 07/17/22 07:26 65 O2 Del Method 07/17/22 16:48 07/17/22 16:09 Room Air 07/17/22 16:09 Room Air 07/17/22 15:17 Room Air 07/17/22 12:05 Room Air 07/17/22 08:20 Room Air 07/17/22 08:00 Room Air 07/17/22 07:26 Laboratory Results Short CBC 07/17/22 Range/Units 05:47 WBC 5.53 (4.8-10.8) K/ul Hgb 9.6 L (12.0-16.0) g/dl Hct 29.9 L (37.0-47.0) % Plt Count 145 (130-400) K/uL BMP 07/17/22 05:47 Sodium 141 Potassium 3.8 Chloride 112 H Carbon Dioxide 25 BUN 14 Creatinine 1.14 Glucose 85 Calcium 9.1 (3) Hypertension Hypertension type: unspecified Qualified Code(s): I10 - Essential (primary) hypertension
[2022-07-17] MEDS: traMADol HCL 50 MG TABLET PO PRN (18:40)
[2022-07-17 19:37] LABS: Adenovirus F 40/41 PCR Not Detected (NotDetected); Astrovirus PCR Not Detected (NotDetected); Campylobacter PCR Not Detected (NotDetected); Cryptosporidium PCR Not Detected (NotDetected); Cyclospora cayetanensis PCR Not Detected (NotDetected); Entamoeba histolytica PCR Not Detected (NotDetected); Enteroaggregative E.coli(EAEC) Not Detected (NotDetected); Enteropathogenic E.coli (EPEC) Not Detected (NotDetected); Enterotoxigenic E.coli (ETEC) Not Detected (NotDetected); Giardia lamblia PCR Not Detected (NotDetected); Plesiomonas shigelloides PCR Not Detected (NotDetected); Rotavirus A PCR Not Detected (NotDetected); Salmonella PCR Not Detected (NotDetected); Sapovirus PCR Not Detected (NotDetected); Shiga-like Toxin E.coli (STEC) Not Detected (NotDetected); Shigella/Enteroinvasive E.coli Not Detected (NotDetected); Vibrio cholerae PCR Not Detected (NotDetected); Vibrio species PCR Not Detected (NotDetected); Yersinia enterocolitica PCR Not Detected (NotDetected)
[2022-07-17 19:53] LABS: Norovirus GI/GII PCR DETECTED (NotDetected)
[2022-07-17] MEDS: ROSUVASTATIN CALCIUM 20 MG TAB PO SCH (20:55)
[2022-07-17] MEDS: traZODone HCL 50 MG TAB PO SCH (22:09)
[2022-07-17] MEDS: MELATONIN 3 MG TAB PO SCH (22:09)
[2022-07-17] MEDS: GABAPENTIN 300 MG CAP PO SCH (22:10)
[2022-07-18] MEDS: LEVOTHYROXINE SODIUM 100 MCG TABLET PO SCH (06:15)
[2022-07-18 07:57] LABS: Hematocrit (blood only) 31.5 % (37.0-47.0); Hemoglobin 10.5 g/dl (12.0-16.0)
--- NOTE | 2022-07-18 08:01 | XRay Report ---
KUB HISTORY: Diarrhea COMPARISON: KUB 07/05/2014. FINDINGS: The bowel gas pattern is unremarkable. There are no dilated loops of small bowel to suggest an obstruction. No renal calculi. No ureteral calculi. Calcifications in the deep pelvis likely rep resent phleboliths. No pneumoperitoneum or pneumatosis. Moderate fecal retention is noted. Levoscolio sis. Poststernotomy changes. Calcified plaque within the abdominal aorta. 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 IMPRESSION: 1. No dilated loops of bowel to suggest an obstruction. 2. Moderate fecal retention. ACT 112: Negative or not required by law. Electronically signed by: Naresh Enriquez M.D. 07/18/2022 8:00 AM
[2022-07-18 08:05] LABS: BUN Creatinine Ratio 13.6 (10-20); Calcium 9.6 mg/dl (8.6-10.3); Creatinine Clr Calc Pharmacy 35.4 ml/min; Est GFR (African American) 48.7 ml/min
[2022-07-18] MEDS: METOPROLOL SUCC 25MG EXT REL TAB PO SCH (08:20)
[2022-07-18] MEDS: MULTIVITAMIN TAB PO SCH (08:20)
[2022-07-18] MEDS: PANTOprazole 40 MG TAB PO SCH ×2 (08:20→22:31)
[2022-07-18] MEDS: busPIRone 5 MG TAB PO SCH ×2 (08:20→22:30)
[2022-07-18] MEDS: amLODIPine BESYLATE 5 MG TAB PO SCH (08:21)
[2022-07-18] MEDS: GABAPENTIN 300 MG CAP PO SCH ×2 (08:21→22:30)
[2022-07-18] MEDS: APIXABAN 2.5 MG TAB PO SCH (08:21)
--- NOTE | 2022-07-18 08:22 | Electrocardiogram Report ---
Test Reason : Blood Pressure : / mmHG Vent. Rate : 082 BPM Atrial Rate : 082 BPM P-R Int : 254 ms QRS Dur : 078 ms QT Int : 352 ms P-R-T Axes : 056 028 028 degrees QTc Int : 411 ms Sinus rhythm with 1st degree A-V block Old Septal infarct (cited on or before 16-JUL-2022) Abnormal ECG When compared with ECG of 16-JUL-2022 21:35, Premature atrial complexes are no longer Present Confirmed by Noah Adams ([id number]) on 07/18/2022 8:22:05 AM Referred By: REFERRED SELF Confirmed By:Noah Adams
--- NOTE | 2022-07-18 08:28 | XRay Report ---
XR chest 1V portable CLINICAL HISTORY: Pulmonary congestion. COMPARISON STUDY: Chest CT December 01, 2021. Chest radiograph July 13, 2022. FINDINGS: Bilateral shoulder arthroplasties are incidentally noted. There are median sternotomy wires . Cardiomegaly is unchanged. There is a hiatal hernia. No pneumothorax or pleural effusion is present . Apparent asymmetric left lung interstitial thickening is noted. This may be due to patient rotation . The appearance of the chest has not significantly changed when allowing for differences in techniqu e. IMPRESSION: No significant change in appearance of chest. Cardiomegaly with pulmonary vascular conge stion. ACT 112: Negative or not required by law. Electronically signed by: Anthony Borden M.D. 07/18/2022 8:27 AM
[2022-07-18] MEDS: LOPERAMIDE HCL 2 MG CAP PO PRN (08:29)
[2022-07-18 08:57] LABS: Troponin I High Sensitivity 12.8 pg/ml (0-14)
--- NOTE | 2022-07-18 09:18 | Electrocardiogram Report ---
Test Reason : Blood Pressure : / mmHG Vent. Rate : 071 BPM Atrial Rate : 071 BPM P-R Int : 252 ms QRS Dur : 080 ms QT Int : 370 ms P-R-T Axes : 071 019 021 degrees QTc Int : 402 ms Sinus rhythm with 1st degree A-V block with Premature supraventricular complexes 1.5 second pause Abnormal ECG When compared with ECG of 17-JUL-2022 16:38, Premature supraventricular complexes are now Present Criteria for Septal infarct no longer present Confirmed by Noah Adams ([id number]) on 07/18/2022 9:17:56 AM Referred By: REFERRED SELF Confirmed By:Noah dAams
[2022-07-18] MEDS ORDERED: FUROSEMIDE INJ 20 MG/2 ML VIAL IV ONE (09:28)
[2022-07-18] MEDS ORDERED: GADOBUTROL 65ML VIAL IV ONE (12:29)
--- NOTE | 2022-07-18 12:47 | Magnetic Resonance Report ---
MRI OF THE BRAIN COMBO CLINICAL HISTORY: Headache. COMPARISON STUDY: CT of the brain dated 07/16/2022. TECHNIQUE: MRI of the brain was performed utilizing various T1 and T2-weighted sequences in the axial , sagittal, and coronal planes. Contrast-enhanced sequences were acquired following the administratio n of 7 cc of Gadavist. FINDINGS: Brain parenchyma: There is age related involutional change noting moderate confluent subcortical and periventricular microangiopathic disease. There is no hemorrhage or mass effect. There is no restrict ed diffusion to suggest acute ischemia. A 12 mm enhancing extra-axial lesion along the left frontal c onvexity seen on axial image #16 is typical for a meningioma. There is no associated mass effect. No additional enhancing lesion is seen on the postcontrast images. No enhancing mass lesion is identifie d on the postcontrast images. Rashid-white matter differentiation is preserved. A small chronic infarct is seen in the right parietal lobe. Tiny chronic lacunar infarcts are seen in both cerebellar hemisp heres as well as within the right periventricular white matter. No extra-axial fluid collection is se en. The cerebellar tonsils are normal in configuration. Ventricles, sulci, and cisterns: Prominent secondary to involutional change. Pituitary and sella: Unremarkable. Intracranial vasculature: Normal flow voids are maintained at the skull base. Orbits: The bony orbits are grossly intact. Orbital contents are normal in appearance noting bilatera l ocular lens implants. Sinuses and mastoids: The paranasal sinuses are clear. There are bilateral mastoid effusions. Calvarium: Unremarkable. Cervical cord: Partially visualized cervical spinal cord is normal in morphology and signal intensity . IMPRESSION: 1. Senescent changes as above with no acute intracranial abnormality identified. 2. There is a small meningioma along the left frontal convexity with no associated mass effect. ACT 112: Negative or not required by law. Electronically signed by: Avel Calero M.D. 07/18/2022 12:43 PM
[2022-07-18] MEDS ORDERED: ASPIRIN 81 MG CHEW PO SCH (13:00)
--- NOTE | 2022-07-18 16:38 | Cardiology Consultation ---
Date of Consultation July 18, 2022 Assessment & Plan (1) Chest pain, atypical: Her chest pain is atypical and seems noncardiac. Given lack of significant troponin elevation and benign appearing STT wave segments on multiple ECGs, as well as the protective context of a SANDOVAL to LAD graft, conservative management seems appropriate. Recommended that she walk the hallways to see if any of her chest discomfort was reproduced with exertion (to this point it had not been). If she develops more typical anginal symptoms would consider further evaluation, however if she is able to walk the hallways without difficulty would simply optimize hemodynamics (control BP, etc.). (2) CAD (coronary artery disease): As noted, she has a SANDOVAL graft he should be at low risk for major areas of ischemia. (3) Sinus pause: Brief sinus pauses which are asymptomatic. No specific treatment. Would continue her low-dose beta-brendan (metoprolol succinate 25 mg daily), this is necessary to help reduce likelihood of recurrent atrial fibrillation as well as to control the ventricular rate if she does have recurrent A-fib. (4) AF (paroxysmal atrial fibrillation): No recurrence of atrial fibrillation this hospitalization. She is on reduced dose apixaban because she had previously lost weight and been down to 119 pounds at 1 point. Since she has gained the weight back and is now greater than 60 kg (132 pounds), as well as given her potential TIA type symptoms earlier today, would recommend increasing her apixaban to full dosing of 5 mg twice daily. (5) Labile hypertension: This is longstanding and could be treated in hospital on an as needed basis. Would not change her baseline antihypertensive regimen since this would expose her to the risk of orthostatic hypotension (current BP low normal). Reassurance is important, since there is a significant anxiety component. (6) Chronic heart failure with preserved ejection fraction (HFpEF): She had new onset mild congestive heart failure in the context of uncontrolled atrial fibrillation earlier this year. Currently, she appears euvolemic and symptom-free. Would recommend she be discharged on weight-based PRN diuretic r egimen, she could take torsemide if she gains more than 2 pounds in a day or 5 pounds in a week. History of Present Illness Reason for Consultation: CP/abnl ECG Requesting Physician: Lalo Conte MD Attending Physician: Lalo Conte MD History of Present Illness 83-year-old woman with CAD (SANDOVAL to LAD CABG 1998), mild to moderate valvular disease (/MR/TR), paroxysmal atrial fibrillation (metoprolol/reduced dose apixaban), and mild HFpEF who was admitted 07/14/22 with multiple noncardiac symptoms (headache, nausea, vomiting, diarrhea) but who developed intermittent chest discomfort while hospitalized as well as demonstrating brief pauses on telemetry/serial ECGs. Fortunately, her GI symptoms resolved early during her hospitalization. Over the past several days, however, she has noted intermittent chest discomfort at rest with no other associated symptoms. Earlier today she had a separate episode of headache, left arm discomfort, and feeling as if it was hard to speak, the symptoms resolved completely without intervention but were concerning enough that an MRI was obtained, this showed senescent changes with no acute process and a small meningioma. At the time of my evaluation, she was very comfortable and had no somatic complaints whatsoever. She was anxious about recent hypertensive blood pressure readings however. Allergies Allergy/AdvReac Type Severity Reaction Status Date / Time nitroglycerin AdvReac Severe "PROJECTILE Verified 07/13/22 21:52 VOMITTING" ergotamine AdvReac Intermediate vomiting Verified 07/13/22 21:52 Home Medications Medication Instructions Recorded Confirmed Type levothyroxine 100 mcg tablet 100 mcg PO DAILYBB 01/23/18 07/13/22 History (Levoxyl) pantoprazole 40 mg tablet,delayed 40 mg PO BID 01/23/18 07/13/22 History release (Protonix) rosuvastatin 40 mg tablet (Crestor) 40 mg PO HS 01/23/18 07/13/22 History multivitamin 1 tab PO QAM 11/11/18 07/13/22 History metoprolol succinate 25 mg 25 mg PO QAM 10/22/20 07/13/22 History tablet,extended release 24 hr apixaban 2.5 mg tablet (Eliquis) 2.5 mg PO BID #180 tabs 03/22/21 07/13/22 Rx buspirone 10 mg tablet 10 mg PO BID #60 tabs 03/22/21 07/13/22 Rx nabumetone 500 mg tablet 500 mg PO BID 11/29/21 07/13/22 History torsemide 20 mg tablet 20 mg PO DAILY 11/29/21 07/13/22 History zolpidem 5 mg tablet 5 mg PO HS PRN Sleep #30 tabs 06/27/22 07/13/22 Rx cefuroxime axetil 500 mg tablet 500 mg PO BID 07/13/22 07/13/22 History gabapentin 300 mg capsule 300 mg PO BID 07/13/22 07/13/22 History ondansetron HCl 4 mg tablet 4 mg PO Q8H PRN Nausea And Vomiting 07/13/22 07/13/22 History trazodone 50 mg tablet 50 mg PO HS 07/13/22 07/13/22 History Patient History Medical History (Updated 07/18/22 @ 16:45 by Noah Adams MD) Acid reflux OCCASIONAL Arthritis CAD (coronary artery disease) Chronic back pain Chronic kidney disease stage 3 Depression Dyslipidemia Fall History of blood transfusion 2012 22 GASTRIC ULCER History of gastric ulcer 2012 Hypertension Hypothyroidism Mild aortic stenosis Moderate mitral regurgitation New onset a-fib Osteoarthritis Spinal stenosis Transient ischemic attack (TIA) ~2012>REASON FOR PLAVIX Surgical History H/O bilateral salpingo-oophorectomy with hyter History of abdominoplasty PANNICULECTOMY History of arthroplasty of left hip History of arthroplasty of left shoulder History of arthroplasty of right hip History of cardiac cath NO STENTS History of colonoscopy History of coronary artery bypass graft 1998 (1 VESSEL) History of esophagogastroduodenoscopy (EGD) History of hysterectomy with oophorectomy History of tonsillectomy and adenoidectomy 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 S/P epidural steroid injection S/p reverse total shoulder arthroplasty RT/LEFT Family History Father , age 74 Allergic reaction Mother , 80s CHF (congestive heart failure) Other No family history of adverse response to anesthesia Social History Smoking Status: Never smoker Second Hand Exposure: No; Do You Dip or Chew Tobacco: No; Tobacco Cessation Education Requested by Patient: No Hx Alcohol Use: Yes Alcohol type: hard liquor Hx Substance Use: No Preferred Language: Nigerian Communication Ability: Effective Visual Impairment: No Limitations Marine Biologist Required: No Beliefs That Will Affect Care: Muslim Muslim Beliefs: Hinduism marital status: Single Current Living Situation: Alone and Other Current Living Situation Comment: [facility] How many Children do You have: 0 Other Information That Helps Us Care for You: No Feels Safe at Home: Yes Safety Concerns: Feels Safe At This Time Assistive Devices: Walker Physical Exam Physical Exam: Appears comfortable. BP hypertensive through much of the day, however most recent reading was 112/57 mmHg. Pulse 85 bpm and regular without obvious ectopy. Skin: No unusual lesions or ecchymosis. HEENT: Unremarkable. Neck: Jugular venous pulse just above the clavicle pulse at 90 with increased "v" waves, carotid with bilateral transmitted murmur. Lungs: clear. No wheezing or crackles. Cardiac: regular rhythm with normal S1 and moderately diminished A2. 3/6 systolic ejection murmur at the right upper sternal border radiating to the carotids, left sternal border, and axilla. No diastolic murmur or distinct gallop. Abdomen: Benign. Extremities: Nontender without pretibial edema. Intact peripheral pulses. Neurologic: Anxious affect, nonfocal. Results & Data Vital Signs (Past 12 Hours) Vital Signs Temp Pulse Pulse Resp BP Pulse Ox O2 Del Method 07/18/22 15:43 77 07/18/22 05:59 70 07/18/22 09:00 Room Air 07/18/22 07:52 97.5 F L 77 16 169/81 H 97 Room Air Laboratory Results High-sensitivity troponins of 14.4, 9.5, 12.8, and 10.6. Diagnostic Findings Multiple ECGs reviewed: 1. Sinus rhythm at 91 bpm with first-degree AV block, otherwise unremarkable. 2. Sinus rhythm at 60 bpm with first-degree AV block and 2 brief pauses of 1.5 seconds each. 3. Sinus rhythm at 68 bpm with first-degree AV block and 1 pause of 1.5 seconds. 4. Sinus rhythm at 82 bpm, possible old septal infarct (likely lead placement, not seen on prior or subsequent ECGs), no pauses. 5. Sinus rhythm at 71 bpm with first-degree AV block and a 1.5-second pause. There is no ST or T wave abnormality seen on any of the above ECGs. Chest ray on admission showed interstitial thickening and was unchanged from a film from June 2022. PG Care Time/CCT Total # of Minutes Spent Total Time Spent with Patient: Total time spent is greater than 50% in coordination of care (as documented) at patient's floor/unit and/or counseling patient: Coding Level of Care Code 69468 IN/OBS CONSULT LVL 4,60M Diagnoses Chest pain, atypical R07.89 CAD (coronary artery disease) I25.10 Coronary Disease-Associated Artery/Lesion type: [place] artery [place] vs. transplanted heart: [place] heart Associated angina: without angina Sinus pause I45.5 AF (paroxysmal atrial fibrillation) I48.0 Labile hypertension R09.89 Chronic heart failure with preserved ejection fraction (HFpEF) I50.32 (2) CAD (coronary artery disease) Coronary Disease-Associated Artery/Lesion type: [place] artery [place] vs. transplanted heart: [place] heart Associated angina: without angina Qualified Code(s): I25.10 - Atherosclerotic heart disease of [place] coronary artery without angina pectoris
--- NOTE | 2022-07-18 17:17 | Hospitalist Progress Note ---
Date of Service July 18, 2022 Assessment & Plan (1) Nausea & vomiting: (2) Dizziness: (3) Hypertension: Plan Viral gastroenteritis -Stool studies:+ Norovirus, negative for C. difficile continue IVF as need Conservative management Fecal retention No signs of obstruction on imaging KUB:Moderate fecal retention Monitor We will repeat KUB tomorrow Meningioma Chronic CVA Incidental finding on MRI -MRI Brain:no acute intracranial abnormality identified. There is a small meningioma along the left frontal convexity with no associated mass effect. A small chronic infarct is seen in the right parietal lobe. Tiny chronic lacunar infarcts are seen in both cerebellar hemispheres as well as within the right periventricular white matter. -Head/Neck CTA:Negative Will need Neurology evaluation eventually Hypertension BP variable likely due to anxiety Continue metoprolol Added amlodipine Monitor Dizziness likely due to above orthostatic vitals negative PAC on telemetry, Resolved on Repeat EKG PT/OT as able Improved KIM due to GI losses Held torsemide Renal function improved after IV fluids Paroxysmal A fib Continue Eliquis, Toprol 25mg daily Chronic Diastolic CHF Torsemide 20mg daily on hold. Monitor volume status IV lasix as needed Resume torsemide as able Anxiety/depression -Buspirone 10mg BID, trazodone 50mg QHS -started melatonin 3mg QHS Arthritis -d/c Nabumetone--Hold for now DVT px Eliquis--Dose adjusted as recommended by Cardiology Admission and Anticipated Discharge Date Admission Date: July 14, 2022 Subjective Patient is seen and examined at bedside Patient feels a lot better today Headache much improved Still has some diarrhea Chest pain resolved Denies any nausea, vomiting, abdominal pain. No other complaints Review of Systems Review of Systems: All systems reviewed & are unremarkable except as noted in Subjective Physical Exam Physical Exam: Physical Exam: Vitals signs as noted above General Appearance:Moderately built and nourished, no apparent distress, Elderly Head: normocephalic, Atraumatic Eyes: normal inspection, EOMI Neck: supple, Trachea midline Respiratory/Chest: Normal breath sounds, CTA, No accessory muscle use Cardiovascular: S1, S2, No murmur Abdomen/GI:Soft, Non tender, Bowel sounds present Extremities/Musculoskeletal:normal inspection, Trace edema Neurologic/Psych:AAOX3, grossly no focal neurological deficits Skin: normal color, warm Results & Data Results & Data Vital Signs (Past 12 Hours) Vital Signs Temp Pulse Pulse Resp BP Pulse Ox O2 Del Method 07/18/22 16:00 36.5 C 85 20 112/57 L 96 Room Air 07/18/22 15:43 77 07/18/22 05:59 70 07/18/22 09:00 Room Air 07/18/22 07:52 36.4 C L 77 16 169/81 H 97 Room Air Laboratory Results Short CBC 07/18/22 Range/Units 06:50 Hgb 10.5 L (12.0-16.0) g/dl Hct 31.5 L (37.0-47.0) % BMP 07/18/22 06:50 Sodium 139 Potassium 4.0 Chloride 110 H Carbon Dioxide 25 BUN 16 Creatinine 1.18 Glucose 85 Calcium 9.6 (3) Hypertension Hypertension type: unspecified Qualified Code(s): I10 - Essential (primary) hypertension
[2022-07-18] MEDS: APIXABAN 5 MG TABLET PO SCH (22:29)
[2022-07-18] MEDS: MELATONIN 3 MG TAB PO SCH (22:31)
[2022-07-18] MEDS: traZODone HCL 50 MG TAB PO SCH (22:32)
[2022-07-18] MEDS: ONDANSETRON INJ 2 MG/ML 2 ML VIAL IV PRN (22:32)
[2022-07-18] MEDS: ROSUVASTATIN CALCIUM 20 MG TAB PO SCH (22:32)
[2022-07-19] MEDS: LEVOTHYROXINE SODIUM 100 MCG TABLET PO SCH (06:26)
[2022-07-19 06:33] LABS: Hematocrit (blood only) 32.5 % (37.0-47.0); Hemoglobin 10.8 g/dl (12.0-16.0)
[2022-07-19 07:21] LABS: Calcium 9.9 mg/dl (8.6-10.3); Magnesium 1.9 mg/dl (1.7-2.4)
[2022-07-19 07:27] LABS: BUN Creatinine Ratio 17.8 (10-20); Chol HDL Ratio 2.9 (0-5); Creatinine Clr Calc Pharmacy 30.9 ml/min; Est GFR (African American) 41.4 ml/min; Est GFR (Non-African American) 35.7 ml/min
[2022-07-19] MEDS: APIXABAN 5 MG TABLET PO SCH ×2 (08:50→22:17)
[2022-07-19] MEDS: MULTIVITAMIN TAB PO SCH (08:50)
[2022-07-19] MEDS: amLODIPine BESYLATE 5 MG TAB PO SCH (08:51)
[2022-07-19] MEDS: busPIRone 5 MG TAB PO SCH ×2 (08:51→22:18)
[2022-07-19] MEDS: GABAPENTIN 300 MG CAP PO SCH ×2 (08:51→22:19)
[2022-07-19] MEDS: PANTOprazole 40 MG TAB PO SCH ×2 (08:51→22:21)
[2022-07-19] MEDS: METOPROLOL SUCC 25MG EXT REL TAB PO SCH (08:51)
[2022-07-19] MEDS: ONDANSETRON INJ 2 MG/ML 2 ML VIAL IV PRN ×2 (08:56→15:39)
--- NOTE | 2022-07-19 12:40 | Neurology Consultation ---
Date of Consultation July 19, 2022 Assessment & Plan (1) Headache: Headache secondary to viral gastritis has since resolved. I am concerned about her new inability to ambulate today, would have a higher suspicion for GBS as a cause following viral GI illness, though deconditioning is equally likely. If she has reflexes and is able to ambulate with PT, would continue supportive care per medicine. She does not have any need for aspirin, anticoagulation for afib is sufficient. No further workup needed for her resolved headache, it is not related to her tiny meningioma which needs no further follow-up. Please contact us with any further questions. Telehealth Consultation Telehealth Information Telehealth Information: I performed this visit using a real-time telehealth connection between my location and the patients location ([facility]). After connecting through interactive tele-video, patient was identified by name and date of and/or wristband check.Patient (or authorized healthcare medical field representative) was informed that this was a telemedicine visit and it was being conducted confidentially over secure lines. My office door was closed and no one else was present in the room with me.Patient (or authorized healthcare medical field representative) provided consent to proceed with the visit, expressed an understanding of privacy and security of the telemedicine visit, and gave permission to have a hospital medical field representative in the room in order to assist with the visit and to conduct portions of the visit, as needed. I informed the patient (or authorized healthcare medical field representative) that I reviewed their record and presented the opportunity for them to ask any questions regarding the visit today. The patient agreed to participate. History of Present Illness Reason for Consultation: Headache Requesting Physician: Dr. Conte Attending Physician: Lalo Conte MD History of Present Illness Lavinia Howard is a 83 yo F presenting viral gastritis, generalized weakness, nausea and vomiting. She had a severe headache yesterday which has since resolved. She has a history of migraine but none since 1998. She believes the headache was in the setting of being sick and described the pain and whole head throbbing. Otherwise she feels well today, though notes her legs are weak and she was having difficulty walking today. Allergies Allergy/AdvReac Type Severity Reaction Status Date / Time nitroglycerin AdvReac Severe "PROJECTILE Verified 07/13/22 21:52 VOMITTING" ergotamine AdvReac Intermediate vomiting Verified 07/13/22 21:52 Home Medications Medication Instructions Recorded Confirmed Type levothyroxine 100 mcg tablet 100 mcg PO DAILYBB 01/23/18 07/13/22 History (Levoxyl) pantoprazole 40 mg tablet,delayed 40 mg PO BID 01/23/18 07/13/22 History release (Protonix) rosuvastatin 40 mg tablet (Crestor) 40 mg PO HS 01/23/18 07/13/22 History multivitamin 1 tab PO QAM 11/11/18 07/13/22 History metoprolol succinate 25 mg 25 mg PO QAM 10/22/20 07/13/22 History tablet,extended release 24 hr apixaban 2.5 mg tablet (Eliquis) 2.5 mg PO BID #180 tabs 03/22/21 07/13/22 Rx buspirone 10 mg tablet 10 mg PO BID #60 tabs 03/22/21 07/13/22 Rx nabumetone 500 mg tablet 500 mg PO BID 11/29/21 07/13/22 History torsemide 20 mg tablet 20 mg PO DAILY 11/29/21 07/13/22 History zolpidem 5 mg tablet 5 mg PO HS PRN Sleep #30 tabs 06/27/22 07/13/22 Rx cefuroxime axetil 500 mg tablet 500 mg PO BID 07/13/22 07/13/22 History gabapentin 300 mg capsule 300 mg PO BID 07/13/22 07/13/22 History ondansetron HCl 4 mg tablet 4 mg PO Q8H PRN Nausea And Vomiting 07/13/22 07/13/22 History trazodone 50 mg tablet 50 mg PO HS 07/13/22 07/13/22 History Patient History Medical History (Updated 07/18/22 @ 16:45 by Noah Adams MD) Acid reflux OCCASIONAL Arthritis CAD (coronary artery disease) Chronic back pain Chronic kidney disease stage 3 Depression Dyslipidemia Fall History of blood transfusion 2012 2/2 GASTRIC ULCER History of gastric ulcer 2012 Hypertension Hypothyroidism Mild aortic stenosis Moderate mitral regurgitation New onset a-fib Osteoarthritis Spinal stenosis Transient ischemic attack (TIA) ~2013>REASON FOR PLAVIX Surgical History H/O bilateral salpingo-oophorectomy with hyter History of abdominoplasty PANNICULECTOMY History of arthroplasty of left hip History of arthroplasty of left shoulder History of arthroplasty of right hip History of cardiac cath NO STENTS History of colonoscopy History of coronary artery bypass graft 1998 (1 VESSEL) History of esophagogastroduodenoscopy (EGD) History of hysterectomy with oophorectomy History of tonsillectomy and adenoidectomy 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 S/P epidural steroid injection S/p reverse total shoulder arthroplasty RT/LEFT Family History Father , age 74 Allergic reaction Mother , 80s CHF (congestive heart failure) Other No family history of adverse response to anesthesia Social History Smoking Status: Never smoker Second Hand Exposure: No; Do You Dip or Chew Tobacco: No; Tobacco Cessation Education Requested by Patient: No Hx Alcohol Use: Yes Alcohol type: hard liquor Hx Substance Use: No Preferred Language: Croatian Communication Ability: Effective Visual Impairment: No Limitations Crime Scene Specialist Required: No Beliefs That Will Affect Care: Baptist Baptist Beliefs: Congregational marital status: Single Current Living Situation: Alone and Other Current Living Situation Comment: [facility] How many Children do You have: 0 Other Information That Helps Us Care for You: No Feels Safe at Home: Yes Safety Concerns: Feels Safe At This Time Assistive Devices: Walker Review of Systems Negative Physical Exam Neurological Examination: Mental Status: Awake and alert. Oriented to person, place, and time. Fluent. Comprehension intact. Affect appropriate. Cranial Nerves: II: Reads NIHSS cards, velasquez grossly intact. III/IV/: Versions intact without nystagmus, no gaze preference. V: Facial sensation symmetric to light touch VII: Facial expression symmetric VIII: Hearing intact to voice Motor: Strength was symmetric and antigravity in the upper extremities. Pronator drift was absent. There were no abnormal movements. Coordination: Movements were non-ataxic Reflexes: Unable to assess over telemedicine Results & Data Vital Signs (Past 12 Hours) Vital Signs Temp Pulse Pulse Resp BP BP Pulse Ox 07/19/22 12:25 36.8 C 84 18 114/78 114/78 98 07/19/22 08:42 36.6 C 88 18 130/74 95 07/19/22 07:34 61 07/19/22 04:00 36.5 C 79 18 154/86 H 96 O2 Del Method 07/19/22 12:25 Room Air 07/19/22 08:42 Room Air 07/19/22 07:34 07/19/22 04:00 Room Air Laboratory Results Abnormal lab results 07/19/22 07/19/22 Range/Units 05:49 05:49 Hgb 10.8 L (12.0-16.0) g/dl Hct 32.5 L (37.0-47.0) % BUN 24 H (6-23) mg/dl Creatinine 1.35 H (0.6-1.2) mg/dl Diagnostic Findings Brain MRI 07/18/22 08:24 MRI OF THE BRAIN COMBO CLINICAL HISTORY: Headache. COMPARISON STUDY: CT of the brain dated 07/16/2022. TECHNIQUE: MRI of the brain was performed utilizing various T1 and T2-weighted sequences in the axial, sagittal, and coronal planes. Contrast-enhanced sequences were acquired following the administration of 7 cc of Gadavist. FINDINGS: Brain parenchyma: There is age related involutional change noting moderate confluent subcortical and periventricular microangiopathic disease. There is no hemorrhage or mass effect. There is no restricted diffusion to suggest acute ischemia. A 12 mm enhancing extra-axial lesion along the left frontal convexity seen on axial image #16 is typical for a meningioma. There is no associated mass effect. No additional enhancing lesion is seen on the postcontrast images. No enhancing mass lesion is identified on the postcontrast images. Rashid-white matter differentiation is preserved. A small chronic infarct is seen in the right parietal lobe. Tiny chronic lacunar infarcts are seen in both cerebellar hemispheres as well as within the right periventricular white matter. No extra- axial fluid collection is seen. The cerebellar tonsils are normal in conf iguration. Ventricles, sulci, and cisterns: Prominent secondary to involutional change. Pituitary and sella: Unremarkable. Intracranial vasculature: Normal flow voids are maintained at the skull base. Orbits: The bony orbits are grossly intact. Orbital contents are normal in appearance noting bilateral ocular lens implants. Sinuses and mastoids: The paranasal sinuses are clear. There are bilateral mastoid effusions. Calvarium: Unremarkable. Cervical cord: Partially visualized cervical spinal cord is normal in morphology and signal intensity. IMPRESSION: 1. Senescent changes as above with no acute intracranial abnormality identified. 2. There is a small meningioma along the left frontal convexity with no associated mass effect. ACT 112: Negative or not required by law. Electronically signed by: Avel Calero M.D. 07/18/2022 12:43 PM (1) Headache Headache chronicity pattern: acute headache Headache type: unspecified Intractability: not intractable Qualified Code(s): R51.9 - Headache, unspecified
--- NOTE | 2022-07-19 12:59 | Cardiology Progress Note ---
Date of Service July 19, 2022 Assessment & Plan (1) Chest pain, atypical: Plan: Chest symptoms more consistent with palpitations and angina, she was able to ambulate without any symptoms whatsoever. In the absence of progressive or more characteristic chest symptoms would not require further cardiac evaluation at this time. (2) CAD (coronary artery disease): Plan: As noted, she has a SANDOVAL graft he should be at low risk for major areas of ischemia. (3) Sinus pause: Plan: Brief sinus pauses which are asymptomatic. No specific treatment, in the absence of longer pauses continue beta-brendan at current dose. (4) AF (paroxysmal atrial fibrillation): Plan: No recurrence of atrial fibrillation this hospitalization, but agree with increasing apixaban to 5 mg twice daily. (5) Labile hypertension: Plan: This is longstanding and could be treated in hospital on a PRN basis (Rx extreme values only). Would not change her baseline antihypertensive regimen since this would expose her to the risk of orthostatic hypotension (current BP low normal). Reassurance is important, since there is a significant anxiety component. (6) Chronic heart failure with preserved ejection fraction (HFpEF): Plan: Would recommend she be discharged on weight-based PRN diuretic regimen, she could take torsemide if she gains more than 2 pounds in a day or 5 pounds in a week. Admission and Anticipated Discharge Date Admission Date: July 14, 2022 Subjective She was able to ambulate about her room with no chest discomfort or dyspnea (restricted from hallways due to isolation precautions). She still notes occasional transient chest sensation which is more lester to palpitations, and that it lasts for only a second and resolves promptly. Monitor continues to show sinus rhythm with occasional blocked PACs with brief pauses. She felt well yesterday, but today she felt very fatigued with marked muscular weakness, she wonders if she would benefit from physical therapy. She denied any dyspnea, focal neurologic symptoms, orthostatic lightheadedness, or chest discomfort other than brief palpitations. Physical Exam Physical Exam: Appears comfortable. BP labile with low normal values and mild to moderate hypertensive values throughout the day. Pulse 84 bpm and regular without obvious ectopy. Skin: No unusual lesions or ecchymosis. HEENT: Unremarkable. Neck: Jugular venous pulse just above the clavicle pulse at 90 with increased "v" waves, carotid with bilateral transmitted murmur. Lungs: clear. No wheezing or crackles. Cardiac: regular rhythm with normal S1 and moderately diminished A2. 3/6 systolic ejection murmur at the right upper sternal border radiating to the carotids, left sternal border, and axilla. No diastolic murmur or distinct gallop. Abdomen: Benign. Extremities: Nontender without pretibial edema. Intact peripheral pulses. Neurologic: Anxious affect, nonfocal. Results & Data Vital Signs (Past 12 Hours) Vital Signs Temp Pulse Pulse Resp BP BP Pulse Ox 07/19/22 12:25 98.2 F 84 18 114/78 114/78 98 07/19/22 08:42 97.9 F 88 18 130/74 95 07/19/22 07:34 61 07/19/22 04:00 97.7 F 79 18 154/86 H 96 O2 Del Method 07/19/22 12:25 Room Air 07/19/22 08:42 Room Air 07/19/22 07:34 07/19/22 04:00 Room Air Laboratory Results Normal electrolytes, BUN 24, creatinine 1.35. PG Care Time/CCT Total # of Minutes Spent Total Time Spent with Patient: Total time spent is greater than 50% in coordination of care (as documented) at patient's floor/unit and/or counseling patient: Coding Level of Care Code 69877 SUB INP/OBS CARE 2/35MIN Diagnoses Chest pain, atypical R07.89 CAD (coronary artery disease) I25.10 Coronary Disease-Associated Artery/Lesion type: [place] artery [place] vs. transplanted heart: [place] heart Associated angina: without angina Sinus pause I45.5 AF (paroxysmal atrial fibrillation) I48.0 Labile hypertension R09.89 Chronic heart failure with preserved ejection fraction (HFpEF) I50.32 (2) CAD (coronary artery disease) Coronary Disease-Associated Artery/Lesion type: [place] artery [place] vs. transplanted heart: [place] heart Associated angina: without angina Qualified Code(s): I25.10 - Atherosclerotic heart disease of [place] coronary artery without angina pectoris
--- NOTE | 2022-07-19 13:20 | XRay Report ---
KUB HISTORY: fecal retention COMPARISON: KUB 07/18/2022. FINDINGS: The bowel gas pattern is unremarkable. There are no dilated loops of small bowel to suggest an obstruction. No renal calculi. No ureteral calculi. Calcifications in the deep pelvis likely rep resent phleboliths. No pneumoperitoneum or pneumatosis. Moderate fecal retention is noted. Levoscolio sis. Poststernotomy changes. Calcified plaque within the abdominal aorta. 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 IMPRESSION: 1. No dilated loops of bowel to suggest an obstruction. 2. Moderate fecal retention, unchanged. ACT 112: Negative or not required by law. Electronically signed by: Naresh Enriquez M.D. 07/19/2022 1:18 PM
[2022-07-19] MEDS ORDERED: bisacodyL 10 MG SUPP PR PRN (14:00)
--- NOTE | 2022-07-19 17:14 | Hospitalist Progress Note ---
Date of Service July 19, 2022 Assessment & Plan (1) Nausea & vomiting: (2) Dizziness: (3) Hypertension: Plan Viral gastroenteritis -Stool studies:+ Norovirus, negative for C. difficile continue IVF as needed Conservative management Deconditioning Continue PT OT Fecal retention No signs of obstruction on imaging KUB:Moderate fecal retention Repeat KUB showed persistent retention Will give Enema Check KUB daily Meningioma Chronic CVA Incidental finding on MRI -MRI Brain:no acute intracranial abnormality identified. There is a small meningioma along the left frontal convexity with no associated mass effect. A small chronic infarct is seen in the right parietal lobe. Tiny chronic lacunar infarcts are seen in both cerebellar hemispheres as well as within the right periventricular white matter. -Head/Neck CTA:Negative Appreciate neurology input: No further work-up needed for meningioma Hypertension BP variable likely due to anxiety Continue metoprolol Added amlodipine Monitor Dizziness likely due to above orthostatic vitals negative PAC on telemetry, Resolved on Repeat EKG PT/OT as able Improved KIM due to GI losses Held torsemide Renal function improved after IV fluids Monitor renal function Paroxysmal A fib Continue Eliquis, Toprol 25mg daily Chronic Diastolic CHF Torsemide 20mg daily on hold. Monitor volume status IV lasix as needed Resume torsemide as able Anxiety/depression -Buspirone 10mg BID, trazodone 50mg QHS -started melatonin 3mg QHS Arthritis -d/c Nabumetone--Hold for now DVT px Eliquis--Dose adjusted as recommended by Cardiology Admission and Anticipated Discharge Date Admission Date: July 14, 2022 Subjective Patient is seen and examined at bedside Diarrhea much improved Tolerating diet Nausea overnight, resolved this morning Headache resolved as well Denies any chest pain today Also denies any vomiting, abdominal pain. Discussed with neurology today Review of Systems Review of Systems: All systems reviewed & are unremarkable except as noted in Subjective Physical Exam Physical Exam: Physical Exam: Vitals signs as noted above General Appearance:Moderately built and nourished, no apparent distress, Elderly Head: normocephalic, Atraumatic Eyes: normal inspection, EOMI Neck: supple, Trachea midline Respiratory/Chest: Normal breath sounds, CTA, No accessory muscle use Cardiovascular: S1, S2, No murmur Abdomen/GI:Soft, Non tender, Bowel sounds present Extremities/Musculoskeletal:normal inspection, Trace edema Neurologic/Psych:AAOX3, grossly no focal neurological deficits Skin: normal color, warm Results & Data Results & Data Vital Signs (Past 12 Hours) Vital Signs Temp Pulse Pulse Resp BP BP Pulse Ox 07/19/22 15:53 88 07/19/22 12:25 36.8 C 84 18 114/78 114/78 98 07/19/22 08:42 36.6 C 88 18 130/74 95 07/19/22 07:34 61 O2 Del Method 07/19/22 15:53 07/19/22 12:25 Room Air 07/19/22 08:42 Room Air 07/19/22 07:34 Laboratory Results Short CBC 07/19/22 Range/Units 05:49 Hgb 10.8 L (12.0-16.0) g/dl Hct 32.5 L (37.0-47.0) % BMP 07/19/22 05:49 Sodium 139 Potassium 4.0 Chloride 107 Carbon Dioxide 26 BUN 24 H Creatinine 1.35 H Glucose 94 Calcium 9.9 (3) Hypertension Hypertension type: unspecified Qualified Code(s): I10 - Essential (primary) hypertension
[2022-07-19] MEDS: traMADol HCL 50 MG TABLET PO PRN (22:16)
[2022-07-19] MEDS: MELATONIN 3 MG TAB PO SCH (22:20)
[2022-07-19] MEDS: traZODone HCL 50 MG TAB PO SCH (22:21)
[2022-07-19] MEDS: ROSUVASTATIN CALCIUM 20 MG TAB PO SCH (22:21)
[2022-07-20] MEDS: LEVOTHYROXINE SODIUM 100 MCG TABLET PO SCH (05:33)
[2022-07-20] MEDS: APIXABAN 5 MG TABLET PO SCH ×2 (08:55→21:28)
[2022-07-20] MEDS: MULTIVITAMIN TAB PO SCH (08:55)
[2022-07-20] MEDS: GABAPENTIN 300 MG CAP PO SCH ×2 (08:55→21:26)
[2022-07-20] MEDS: busPIRone 5 MG TAB PO SCH ×2 (08:55→21:26)
[2022-07-20] MEDS: PANTOprazole 40 MG TAB PO SCH ×2 (08:55→21:27)
[2022-07-20] MEDS: ONDANSETRON INJ 2 MG/ML 2 ML VIAL IV PRN (08:55)
[2022-07-20] MEDS: METOPROLOL SUCC 25MG EXT REL TAB PO SCH (08:55)
[2022-07-20] MEDS: amLODIPine BESYLATE 5 MG TAB PO SCH (08:56)
--- NOTE | 2022-07-20 10:01 | XRay Report ---
KUB CLINICAL HISTORY: Fecal retention. FINDINGS: An AP, portable, supine abdominal radiograph is compared to study dated 07/19/2022 and corre lated with abdominal CT dated 10/10/2017. There is a nonobstructed abdominal bowel gas pattern. Mild t o moderate fecal retention is seen throughout the colon. No evidence of intraperitoneal free air is s een on this supine image. There are calcified splenic granulomas. Phleboliths are seen in the pelvis. There is advanced atherosclerotic calcification of the abdominal aorta. Midline sternotomy wires and epicardial leads are noted in the lower chest. The skeletal structures are osteopenic. There is adva nced lumbosacral spondylosis and scoliosis. Bilateral hip arthroplasties are in place. IMPRESSION: No acute abnormality is identified. Electronically signed by: Avel Calero M.D. 07/20/2022 9:59 AM
--- NOTE | 2022-07-20 12:30 | Cardiology Progress Note ---
Date of Service July 20, 2022 Assessment & Plan (1) Chest pain, atypical: Plan: Prior chest symptoms more consistent with palpitations than angina, she was able to ambulate without any symptoms whatsoever. In the absence of progressive or more characteristic chest symptoms would not require further cardiac evaluation at this time. (2) CAD (coronary artery disease): (3) Sinus pause: (4) AF (paroxysmal atrial fibrillation): Plan: No recurrence. (5) Labile hypertension: Plan: BP normotensive. (6) Chronic heart failure with preserved ejection fraction (HFpEF): Plan: Would recommend she be discharged on weight-based PRN diuretic regimen, she could take torsemide if she gains more than 2 pounds in a day or 5 pounds in a week. Admission and Anticipated Discharge Date Admission Date: July 14, 2022 Subjective Uneventful night. She feels much better today, no chest pain or other major somatic complaints. Telemetry shows sinus rhythm with sporadic PACs, no significant dysrhythmias. Physical Exam Physical Exam: Appears comfortable. BP normotensive. Pulse 78 bpm and regular without obvious ectopy. Skin: No unusual lesions or ecchymosis. HEENT: Unremarkable. Neck: Jugular venous pulse just above the clavicle pulse at 90 with increased "v" waves, carotid with bilateral transmitted murmur. Lungs: clear. No wheezing or crackles. Cardiac: regular rhythm with normal S1 and moderately diminished A2. 3/6 systolic ejection murmur at the right upper sternal border radiating to the carotids, left sternal border, and axilla. No diastolic murmur or distinct gallop. Abdomen: Benign. Extremities: Nontender without pretibial edema. Intact peripheral pulses. Neurologic: Anxious affect, nonfocal. PG Care Time/CCT Total # of Minutes Spent Total Time Spent with Patient: Total time spent is greater than 50% in coordination of care (as documented) at patient's floor/unit and/or counseling patient: Coding Level of Care Code 32985 SUB INP/OBS CARE 2/35MIN Diagnoses Chest pain, atypical R07.89 CAD (coronary artery disease) I25.10 Coronary Disease-Associated Artery/Lesion type: [place] artery [place] vs. transplanted heart: [place] heart Associated angina: without angina Sinus pause I45.5 AF (paroxysmal atrial fibrillation) I48.0 Labile hypertension R09.89 Chronic heart failure with preserved ejection fraction (HFpEF) I50.32 (2) CAD (coronary artery disease) Coronary Disease-Associated Artery/Lesion type: [place] artery [place] vs. transplanted heart: [place] heart Associated angina: without angina Qualified Code(s): I25.10 - Atherosclerotic heart disease of [place] coronary artery without angina pectoris
--- NOTE | 2022-07-20 16:08 | Hospitalist Progress Note ---
Date of Service July 20, 2022 Assessment & Plan (1) Nausea & vomiting: (2) Dizziness: (3) Hypertension: Plan Viral gastroenteritis -Stool studies:+ Norovirus, negative for C. difficile continue IVF as needed Conservative management Deconditioning Continue PT OT: Recommends return home Improved Fecal retention No signs of obstruction on imaging KUB:Moderate fecal retention Repeat KUB showed persistent retention Enema as needed KUB today: No acute issues Meningioma Chronic CVA Incidental finding on MRI -MRI Brain:no acute intracranial abnormality identified. There is a small meningioma along the left frontal convexity with no associated mass effect. A small chronic infarct is seen in the right parietal lobe. Tiny chronic lacunar infarcts are seen in both cerebellar hemispheres as well as within the right periventricular white matter. -Head/Neck CTA:Negative Appreciate neurology input: No further work-up needed for meningioma Hypertension BP variable likely due to anxiety Continue metoprolol Added amlodipine Monitor BP Dizziness likely due to above orthostatic vitals negative PAC on telemetry, Resolved on Repeat EKG PT/OT as able Resolved KIM due to GI losses Held torsemide Renal function improved after IV fluids Monitor renal function Paroxysmal A fib Continue Eliquis, Toprol 25mg daily Chronic Diastolic CHF Torsemide 20mg daily on hold. Monitor volume status IV lasix as needed Resume torsemide tomorrow Anxiety/depression -Buspirone 10mg BID, trazodone 50mg QHS -started melatonin 3mg QHS Arthritis -d/c Nabumetone--Hold for now DVT px Eliquis--Dose adjusted as recommended by Cardiology Admission and Anticipated Discharge Date Admission Date: July 14, 2022 Subjective Patient is seen and examined at bedside States feeling a lot better today Feels not ready to be discharged home today Diarrhea improved No recurrence of chest pain Transient nausea this morning No other complaints Review of Systems Review of Systems: All systems reviewed & are unremarkable except as noted in Subjective Physical Exam Physical Exam: Physical Exam: Vitals signs as noted above General Appearance:Moderately built and nourished, no apparent distress, Elderly Head: normocephalic, Atraumatic Eyes: normal inspection, EOMI Neck: supple, Trachea midline Respiratory/Chest: Normal breath sounds, CTA, No accessory muscle use Cardiovascular: S1, S2, No murmur Abdomen/GI:Soft, Non tender, Bowel sounds present Extremities/Musculoskeletal:normal inspection, Trace edema Neurologic/Psych:AAOX3, grossly no focal neurological deficits Skin: normal color, warm Results & Data Results & Data Vital Signs (Past 12 Hours) Vital Signs Temp Pulse Pulse Resp BP Pulse Ox O2 Del Method 07/20/22 16:02 79 07/20/22 15:46 Room Air 07/20/22 15:07 36.5 C 80 20 150/86 H 95 Room Air 07/20/22 11:07 36.7 C 77 20 121/76 92 Room Air 07/20/22 08:55 Room Air 07/20/22 08:01 36.5 C 78 18 142/84 H 98 Room Air 07/20/22 07:31 64 (3) Hypertension Hypertension type: unspecified Qualified Code(s): I10 - Essential (primary) hypertension
[2022-07-20] MEDS: MELATONIN 3 MG TAB PO SCH (21:27)
[2022-07-20] MEDS: ROSUVASTATIN CALCIUM 20 MG TAB PO SCH (21:28)
[2022-07-20] MEDS: traZODone HCL 50 MG TAB PO SCH (21:28)
[2022-07-20] MEDS ORDERED: ONDANSETRON 4 MG OD TAB PO PRN (22:09)
[2022-07-21] MEDS: LEVOTHYROXINE SODIUM 100 MCG TABLET PO SCH (06:12)
[2022-07-21] MEDS: APIXABAN 5 MG TABLET PO SCH (09:46)
[2022-07-21] MEDS: METOPROLOL SUCC 25MG EXT REL TAB PO SCH (09:46)
[2022-07-21] MEDS: MULTIVITAMIN TAB PO SCH (09:46)
[2022-07-21] MEDS: amLODIPine BESYLATE 5 MG TAB PO SCH (09:47)
[2022-07-21] MEDS: GABAPENTIN 300 MG CAP PO SCH (09:47)
[2022-07-21] MEDS: PANTOprazole 40 MG TAB PO SCH (09:47)
[2022-07-21] MEDS: busPIRone 5 MG TAB PO SCH (09:47)
[2022-07-21 09:48] LABS: Calcium 10.3 mg/dl (8.6-10.3); Creatinine Clr Calc Pharmacy 29.6 ml/min; Est GFR (African American) 38.9 ml/min; Est GFR (Non-African American) 33.6 ml/min
--- NOTE | 2022-07-21 10:49 | Hospitalist Progress Note ---
Date of Service July 21, 2022 Assessment & Plan (1) Nausea & vomiting: (2) Dizziness: (3) Hypertension: Plan Viral gastroenteritis -Stool studies:+ Norovirus, negative for C. difficile continue IVF as needed Conservative management Deconditioning Continue PT OT: Recommends return home Improved Fecal retention No signs of obstruction on imaging KUB:Moderate fecal retention Repeat KUB showed persistent retention Enema as needed KUB today: No acute issues Meningioma Chronic CVA Incidental finding on MRI -MRI Brain:no acute intracranial abnormality identified. There is a small meningioma along the left frontal convexity with no associated mass effect. A small chronic infarct is seen in the right parietal lobe. Tiny chronic lacunar infarcts are seen in both cerebellar hemispheres as well as within the right periventricular white matter. -Head/Neck CTA:Negative Appreciate neurology input: No further work-up needed for meningioma Hypertension BP variable likely due to anxiety Continue metoprolol Added amlodipine Monitor BP Dizziness likely due to above orthostatic vitals negative PAC on telemetry, Resolved on Repeat EKG PT/OT as able Resolved KIM due to GI losses Renal function improved after IV fluids Monitor renal function Paroxysmal A fib Continue Eliquis, Toprol 25mg daily Eliquis dose increased to 5 mg twice daily as recommended by cardiology Chronic Diastolic CHF Monitor volume status IV lasix as needed Plan to discharge on as needed torsemide if patient gains 2 pounds in a day or 5 or more pounds in a week Anxiety/depression -Buspirone 10mg BID, trazodone 50mg QHS -started melatonin 3mg QHS Arthritis On Nabumetone DVT px Eliquis- Disposition Home with home health Admission and Anticipated Discharge Date Admission Date: July 14, 2022 Subjective Patient is seen and examined at bedside No new complaints Denies chest pain, nausea, vomiting, abd pain Still has some diarrhea Tolerates diet No other complaints Physical Exam Physical Exam: Physical Exam: Vitals signs as noted above General Appearance:Moderately built and nourished, no apparent distress, Elderly Head: normocephalic, Atraumatic Eyes: normal inspection, EOMI Neck: supple, Trachea midline Respiratory/Chest: Normal breath sounds, CTA, No accessory muscle use Cardiovascular: S1, S2, No murmur Abdomen/GI:Soft, Non tender, Bowel sounds present Extremities/Musculoskeletal:normal inspection, Trace edema Neurologic/Psych:AAOX3, grossly no focal neurological deficits Skin: normal color, warm Results & Data Results & Data Vital Signs (Past 12 Hours) Vital Signs Temp Pulse Pulse Resp BP BP Pulse Ox 07/21/22 06:02 76 07/21/22 10:31 07/21/22 08:12 36.7 C 70 20 146/82 H 97 07/21/22 03:11 36.7 C 76 18 117/73 95 O2 Del Method 07/21/22 06:02 07/21/22 10:31 Room Air 07/21/22 08:12 Room Air 07/21/22 03:11 Room Air Laboratory Results [facility] 07/21/22 08:54 Sodium 139 Potassium 4.0 Chloride 108 H Carbon Dioxide 24 BUN 27 H Creatinine 1.42 H Glucose 136 H Calcium 10.3 (3) Hypertension Hypertension type: unspecified Qualified Code(s): I10 - Essential (primary) hypertension
[2022-07-21] MEDS: TORSEMIDE 20 MG TAB PO SCH (10:51)
--- NOTE | 2022-07-21 11:05 | Discharge Summary ---
Date of Service July 21, 2022 Admission HPI Per Admitting Provider CHIEF COMPLAINT: Nausea, vomiting, dizziness, headache. HISTORY OF PRESENT ILLNESS: This is an 83-year-old female with past medical history significant for thoracic aortic ectasia, chronic diastolic CHF, CAD status post CABG, hypertension, chronic atrial fibrillation, mild aortic stenosis, GERD, generalized osteoarthrosis, degenerative disk disease, history of low back pain, anxiety, insomnia, mixed incontinence, depression, history of gastric ulcer, who lives alone at home. Ambulates without support at home. Will use cane when going outside. Says she has no family. She takes care of herself, she drives herself. Comes because of severe headache starting yesterday morning and she has nausea, vomiting. She says she vomited three times today, no blood in the vomitus. Stools are black because she takes Pepto- Bismol. She also noticed some dizziness while standing and she also noted some elevated blood pressure. She called 911 and was brought into the ER. She denies any fever. She says she has no blurred visions, no earache. Has some runny nose, sore throat, and cough. It Looks like her PCP prescribed cefuroxime yesterday for bronchitis. Looks like in the ER, she was able to ambulate but says has some unsteadiness. Denies any chest pain currently, no shortness of breath. Denies abdominal pain. She says she is constipated. Normal bladder movements. No swelling in the legs. Admission Exam Per Admitting Provider PHYSICAL EXAMINATION: GENERAL: The patient is old and frail, not in acute distress. VITAL SIGNS: Temperature 36.8, pulse 86, respiratory rate 22, blood pressure 186/99, oxygen 99% on room air. HEENT: Pupils equal, round, and reactive to light. Oral mucosa moist. NECK: No JVD, no neck masses. CARDIOVASCULAR: S1 and S2 heard. Regular rate and rhythm. No murmur, no gallop. RESPIRATORY SYSTEM: Normal AP diameter. No accessory muscle use. No wheezing, no crackles. ABDOMEN: Soft, bowel sounds present, nontender, no distention. CENTRAL NERVOUS SYSTEM: Alert and oriented. No facial droop. Speech is clear. Power 5/5 in all extremities. Can lift and hold her lower extremities. Sensation is intact. No pronator drift. Coordination of movements normal. Position sense intact. EXTREMITIES: No edema, no erythema. Principal Diagnosis Viral gastroenteritis Fecal retention Meningioma Hypertension Acute Kidney Injury Discharge Data Allergies Allergy/AdvReac Type Severity Reaction Status Date / Time nitroglycerin AdvReac Severe "PROJECTILE Verified 07/13/22 21:52 VOMITTING" ergotamine AdvReac Intermediate vomiting Verified 07/13/22 21:52 Consultations 07/13/22 22:10 ED Decision to Admit Stat 07/18/22 08:22 Consult Cardiology Routine 07/19/22 07:37 Consult Neurology Routine Procedures Performed Laboratory Results WBC 5.53 K/ul (4.8-10.8) 07/17/22 05:47 RBC 3.19 M/uL (4.20-5.40) L 07/17/22 05:47 Hgb 10.8 g/dl (12.0-16.0) L 07/19/22 05:49 POC Hgb 11.9 g/dl (12.0-16.0) L 07/13/22 19:34 Hct 32.5 % (37.0-47.0) L 07/19/22 05:49 POC Hct 35 % (37-47) L 07/13/22 19:34 MCV 93.7 fL (80.0-100.0) 07/17/22 05:47 MCH 30.1 pg (25.0-34.0) 07/17/22 05:47 MCHC 32.1 g/dL (32.0-36.0) 07/17/22 05:47 RDW Std Deviation 45.7 fL (36.4-46.3) 07/17/22 05:47 RDW Coeff of Howei 13.4 % (11.5-14.5) 07/17/22 05:47 Plt Count 145 K/uL (130-400) 07/17/22 05:47 MPV 9.7 fL (9.4-12.4) 07/17/22 05:47 Immature Gran % (Auto) 0.3 % 07/16/22 02:27 Neut % (Auto) 41.8 % 07/16/22 02:27 Lymph % (Auto) 35.9 % 07/16/22 02:27 [place] % (Auto) 12.9 % 07/16/22 02:27 Eos % (Auto) 8.3 % 07/16/22 02:27 Baso % (Auto) 0.8 % 07/16/22 02:27 Neut # (Auto) 2.47 K/uL (1.40-6.50) 07/16/22 02:27 Lymph # (Auto) 2.12 K/uL (1.2-3.4) 07/16/22 02:27 [place] # (Auto) 0.76 K/uL (0.11-0.59) H 07/16/22 02:27 Eos # (Auto) 0.49 K/uL (0-0.50) 07/16/22 02:27 Baso # (Auto) 0.05 K/uL (0-0.2) 07/16/22 02: Immature Gran # (Auto) 0.02 K/uL (0.01-0.20) 07/16/22 02:27 PT 12.0 Seconds (9.0-12.0) 07/13/22 19:28 INR 1.1 (0.9-1.1) 07/13/22 19:28 APTT 25.4 Seconds (21.0-31.0) 07/13/22 19:28 PTT Ratio 0.9 07/13/22 19:28 POC Sodium 141 mmol/L (135-144) 07/13/22 19:34 Sodium 139 mmol/L (136-145) 07/21/22 08:54 POC Potassium 4.0 mmol/L (3.3-5.0) 07/13/22 19:34 Potassium 4.0 mmol/L (3.5-5.1) 07/21/22 08:54 POC Chloride 107 mmol/L (101-112) 07/13/22 19:34 Chloride 108 mmol/L (98-107) H 07/21/22 08:54 Carbon Dioxide 24 mmol/L (21-32) 07/21/22 08:54 POC Total CO2 22 mmol/L (24-31) L 07/13/22 19:34 Anion Gap 7 (3-11) 07/21/22 08:54 POC Anion Gap 17.0 mmol/L (16-25) 07/13/22 19:34 POC BUN 14 mg/dl (7-18) 07/13/22 19:34 BUN 27 mg/dl (6-23) H 07/21/22 08:54 Creatinine 1.42 mg/dl (0.6-1.2) H 07/21/22 08:54 POC Creatinine 1.0 mg/dl (0.6-1.3) 07/13/22 19:34 Est Cr Clr Drug Dosing 29.6 ml/min 07/21/22 08:54 Est GFR ( Amer) 38.9 ml/min 07/21/22 08:54 Est GFR (Non-Af Amer) 33.6 ml/min 07/21/22 08:54 BUN/Creatinine Ratio 19.0 (10-20) 07/21/22 08:54 Glucose 136 mg/dl (70-99(Fasting)) H 07/21/22 08:54 POC Glucose (other) 95 mg/dl (70-99) 07/13/22 19:34 Calcium 10.3 mg/dl (8.6-10.3) 07/21/22 08:54 POC Ioniz Calcium Tono 1.32 mmol/l (1.12-1.32) 07/13/22 19:34 Magnesium 1.9 mg/dl (1.7-2.4) 07/19/22 05:49 Total Bilirubin 0.5 mg/dl (0.2-1.0) 07/13/22 19:28 AST 20 U/L (13-39) 07/13/22 19:28 ALT 11 U/L (7-52) 07/13/22 19:28 Alkaline Phosphatase 59 U/L (34-104) 07/13/22 19:28 Troponin I High Sens 11.0 pg/ml (0-14) 07/18/22 20:32 Total Protein 7.2 gm/dl (6.0-8.3) 07/13/22 19:28 Albumin 3.7 gm/dl (3.4-5.0) 07/13/22 19:28 Globulin 3.5 gm/dl (2.5-4.0) 07/13/22 19:28 Albumin/Globulin Ratio 1.1 (0.9-2) 07/13/22 19:28 Triglycerides 80 mg/dl (0-150) 07/19/22 05:49 Cholesterol 140 mg/dl (0-200) 07/19/22 05:49 LDL Cholesterol, Calc 76 mg/dl 07/19/22 05:49 VLDL Cholesterol, Calc 16 mg/dl (0-30) 07/19/22 05:49 HDL Cholesterol 48 mg/dl 07/19/22 05:49 Cholesterol/HDL Ratio 2.9 (0-5) 07/19/22 05:49 Urine Color Yellow 07/13/22 19:47 Urine Appearance Clear (Clear) 07/13/22 19:47 Urine pH 7.5 (4.5-7.5) 07/13/22 19:47 Ur Specific [place] 1.017 (1.000-1.030) 07/13/22 19:47 Urine Protein 1+ (Negative) H 07/13/22 19:47 Urine Glucose (UA) Negative (Negative) 07/13/22 19:47 Urine Ketones Negative (Negative) 07/13/22 19:47 Urine Blood Negative (Negative) 07/13/22 19:47 Urine Nitrite Negative (Negative) 07/13/22 19:47 Urine Bilirubin Negative (Negative) 07/13/22 19:47 Urine Urobilinogen Negative (Negative) 07/13/22 19:47 Ur Leukocyte Esterase Negative (Negative) 07/13/22 19:47 Urine WBC (Auto) 1-5 /hpf (0-5) 07/13/22 19:47 Urine RBC (Auto) 0-4 /hpf (0-4) 07/13/22 19:47 U Hyaline Cast (Auto) 5-10 /lpf (0-5) H 07/13/22 19:47 U Epithel Cells (Auto) 20-30 /lpf (0-5) H 07/13/22 19:47 Urine Bacteria (Auto) Negative (Negative) 07/13/22 19:47 Stool Occult Bld Scrn Negative (Negative) 07/15/22 14:45 Stl C. cayetanensis PCR Not Detected (NotDetected) 07/17/22 17:55 Stool Rotavirus A PCR Not Detected (NotDetected) 07/17/22 17:55 Stl Adenov F 40/41 PCR Not Detected (NotDetected) 07/17/22 17:55 Stool Astrovirus (PCR) Not Detected (NotDetected) 07/17/22 17:55 Stool Campylobacter PCR Not Detected (NotDetected) 07/17/22 17:55 Stl C. diff Tox B Gene Negative Cdiff Gene (Neg) 07/17/22 17:55 Stool Cryptosporidium PCR Not Detected (NotDetected) 07/17/22 17:55 Stl E.coli Shiga Tox PCR Not Detected (NotDetected) 07/17/22 17:55 Stool E coli O157 PCR Cancelled 07/16/22 14:30 Stl Enterotoxigenic E PCR Not Detected (NotDetected) 07/17/22 17:55 Stool EPEC (PCR) Not Detected (NotDetected) 07/17/22 17:55 Stool EAEC (PCR) Not Detected (NotDetected) 07/17/22 17:55 Stl E. histolytica PCR Not Detected (NotDetected) 07/17/22 17:55 Stool Giardia Lamblia PCR Not Detected (NotDetected) 07/17/22 17:55 Stool Salmonella PCR Not Detected (NotDetected) 07/17/22 17:55 Stool Sapovirus (PCR) Not Detected (NotDetected) 07/17/22 17:55 Stl P. shigelloides PCR Not Detected (NotDetected) 07/17/22 17:55 Stl Shigella/EIEC PCR Not Detected (NotDetected) 07/17/22 17:55 St Y.enterocolitica PCR Not Detected (NotDetected) 07/17/22 17:55 Stool Vibrio (PCR) Not Detected (NotDetected) 07/17/22 17:55 Stl Vibrio cholerae PCR Not Detected (NotDetected) 07/17/22 17:55 Stl Norovirus GI/GII PCR DETECTED (NotDetected) A* 07/17/22 17:55 SARS-CoV-2, RNA, NAAT NEGATIVE (NEGATIVE) 07/13/22 22:07 Impressions Head CTA 07/13/22 19:20 Exam(s): CTA HEAD With Contrast IV Amt: 106ml optiray 320 EXAM: CT Angiography Head With Intravenous Contrast CLINICAL HISTORY: Reason for exam: neuro deficit, acute stroke suspected. TECHNIQUE: Axial computed tomographic angiography images of the head with intravenous contrast. CTDI is 18.16 mGy and DLP is 9.08 mGy-cm. Automated exposure control was utilized for the study. A dose lowering technique was utilized adhering to the principles of ALARA. MIP reconstructed images were created and reviewed. CONTRAST: Patient received 106ml optiray 320 of IV contrast COMPARISON: No relevant prior studies available. FINDINGS: Right internal carotid artery: No acute findings. Intracranial segment is patent with no significant stenosis. No aneurysm. Right anterior cerebral artery: Unremarkable. No occlusion or significant stenosis. No aneurysm. Right middle cerebral artery: Unremarkable. No occlusion or significant stenosis. No aneurysm. Right posterior cerebral artery: Unremarkable. No occlusion or significant stenosis. No aneurysm. Right vertebral artery: Unremarkable as visualized. Left internal carotid artery: No acute findings. Intracranial segment is patent with no significant stenosis. No aneurysm. Left anterior cerebral artery: Unremarkable. No occlusion or significant stenosis. No aneurysm. Left middle cerebral artery: Unremarkable. No occlusion or significant stenosis. No aneurysm. Left posterior cerebral artery: Unremarkable. No occlusion or significant stenosis. No aneurysm. Left vertebral artery: Unremarkable as visualized. Basilar artery: Unremarkable. No occlusion or significant stenosis. No aneurysm. IMPRESSION: Normal head CTA. Electronically signed by: Jeffy Mclaughlin MD 07/13/22 21:27 PM Neck CTA 07/13/22 19:20 Exam(s): CTA NECK With Contrast IV Amt: 106ml optiray 320 EXAM: CT Neck With Intravenous Contrast CLINICAL HISTORY: Reason for exam: neuro deficit, acute stroke suspected. TECHNIQUE: Routine carotid CT protocol was performed with intravenous contrast. NASCET criteria using the distal ICAs for comparison were used for evaluation of stenoses. CTDI is 12.02 mGy and DLP is 421.22 mGy-cm. Automated exposure control was utilized for the study. A dose lowering technique was utilized adhering to the principles of ALARA. CONTRAST: Patient received 106ml optiray 320 of IV contrast COMPARISON: None. FINDINGS: VASCULATURE: Right common carotid artery: Unremarkable. No occlusion or significant stenosis. No dissection. Right internal carotid artery: Unremarkable. Extracranial segment is patent with no occlusion or significant stenosis. No dissection. Right external carotid artery: Unremarkable. No occlusion. Right vertebral artery: Unremarkable. No occlusion or significant stenosis. No dissection. Left common carotid artery: Unremarkable. No occlusion or significant stenosis. No dissection. Left internal carotid artery: Unremarkable. Extracranial segment is patent with no occlusion or significant stenosis. No dissection. Left external carotid artery: Unremarkable. No occlusion. Left vertebral artery: Unremarkable. No occlusion or significant stenosis. No dissection. NECK: Bones/joints: Unremarkable. Soft tissues: Unremarkable. Lung apices: Clear. CAROTID STENOSIS REFERENCE USING NASCET CRITERIA: % ICA stenosis = (1 - narrowest ICA diameter/diameter of distal cervical ICA) x 100. Mild - <50% stenosis. Moderate - 50-69% stenosis. Severe - 70-94% stenosis. Near occlusion - 95-99% stenosis. Occluded - 100% stenosis. IMPRESSION: Negative CTA neck. Electronically signed by: Jeffy Mclaughlin MD 07/13/22 21:[address] 07/16/22 21:31 Exam(s): CT HEAD Without Contrast EXAM: CT Head Without Intravenous Contrast CLINICAL HISTORY: Reason for exam: pardo, noac. TECHNIQUE: Axial computed tomography images of the head/brain without intravenous contrast. Automated exposure control was utilized for the study. A dose lowering technique was utilized adhering to the principles of ALARA. COMPARISON: Head CT 07/13/2022 FINDINGS: Brain: No intracranial hemorrhage, mass-effect, or edema. Chronic right cerebellar infarct. Chronic microvascular ischemic changes. Ventricles: Unremarkable. Bones/joints: Unremarkable. No fracture. Soft tissues: Unremarkable. Sinuses: No acute sinusitis. Mastoid air cells: Unremarkable as visualized. IMPRESSION: No acute abnormality. Electronically signed by: Yunier Hanna MD 07/16/22 23:56 PM Chest X-Ray 07/18/22 07:00 XR chest 1V portable CLINICAL HISTORY: Pulmonary congestion. COMPARISON STUDY: Chest CT December 01, 2021. Chest radiograph July 13, 2022. FINDINGS: Bilateral shoulder arthroplasties are incidentally noted. There are median sternotomy wires. Cardiomegaly is unchanged. There is a hiatal hernia. No pneumothorax or pleural effusion is present. Apparent asymmetric left lung interstitial thickening is noted. This may be due to patient rotation. The appearance of the chest has not significantly changed when allowing for differences in technique. IMPRESSION: No significant change in appearance of chest. Cardiomegaly with pulmonary vascular congestion. ACT 112: Negative or not required by law. Electronically signed by: Anthony Borden M.D. 07/18/2022 8:27 AM Brain MRI 07/18/22 08:24 MRI OF THE BRAIN COMBO CLINICAL HISTORY: Headache. COMPARISON STUDY: CT of the brain dated 07/16/2022. TECHNIQUE: MRI of the brain was performed utilizing various T1 and T2-weighted sequences in the axial, sagittal, and coronal planes. Contrast-enhanced sequences were acquired following the administration of 7 cc of Gadavist. FINDINGS: Brain parenchyma: There is age related involutional change noting moderate confluent subcortical and periventricular microangiopathic disease. There is no hemorrhage or mass effect. There is no restricted diffusion to suggest acute ischemia. A 12 mm enhancing extra-axial lesion along the left frontal convexity seen on axial image #16 is typical for a meningioma. There is no associated mass effect. No additional enhancing lesion is seen on the postcontrast images. No enhancing mass lesion is identified on the postcontrast images. Rashid-white matter differentiation is preserved. A small chronic infarct is seen in the right parietal lobe. Tiny chronic lacunar infarcts are seen in both cerebellar hemispheres as well as within the right periventricular white matter. No extra- axial fluid collection is seen. The cerebellar tonsils are normal in configuration. Ventricles, sulci, and cisterns: Prominent secondary to involutional change. Pituitary and sella: Unremarkable. Intracranial vasculature: Normal flow voids are maintained at the skull base. Orbits: The bony orbits are grossly intact. Orbital contents are normal in appearance noting bilateral ocular lens implants. Sinuses and mastoids: The paranasal sinuses are clear. There are bilateral mastoid effusions. Calvarium: Unremarkable. Cervical cord: Partially visualized cervical spinal cord is normal in morphology and signal intensity. IMPRESSION: 1. Senescent changes as above with no acute intracranial abnormality identified. 2. There is a small meningioma along the left frontal convexity with no associated mass effect. ACT 112: Negative or not required by law. Electronically signed by: Avel Calero M.D. 07/18/2022 12:43 PM KUB X-Ray 07/20/22 07:00 KUB CLINICAL HISTORY: Fecal retention. FINDINGS: An AP, portable, supine abdominal radiograph is compared to study dated 07/19/2022 and correlated with abdominal CT dated 10/10/2017. There is a nonobstructed abdominal bowel gas pattern. Mild to moderate fecal retention is seen throughout the colon. No evidence of intraperitoneal free air is seen on this supine image. There are calcified splenic granulomas. Phleboliths are seen in the pelvis. There is advanced atherosclerotic calcification of the abdominal aorta. Midline sternotomy wires and epicardial leads are noted in the lower chest. The skeletal structures are osteopenic. There is advanced lumbosacral spondylosis and scoliosis. Bilateral hip arthroplasties are in place. IMPRESSION: No acute abnormality is identified. Electronically signed by: Avel Calero M.D. 07/20/2022 9:59 AM Ordered Studies 07/13/22 19:20 CT angio head w con Stat CT angio neck with con Stat CT head/brain wo con Stat 07/16/22 21:31 CT head/brain wo con Stat 07/18/22 08:24 MRI Brain [MR brain wo/w con] Urgent Hospital Course (1) Nausea & vomiting: (2) Dizziness: (3) Hypertension: Plan Viral gastroenteritis -Stool studies:+ Norovirus, negative for C. difficile continue IVF as needed Conservative management Deconditioning Continue PT OT: Recommends return home Improved Fecal retention No signs of obstruction on imaging KUB:Moderate fecal retention Repeat KUB showed persistent retention Enema as needed KUB today: No acute issues Meningioma Chronic CVA Incidental finding on MRI -MRI Brain:no acute intracranial abnormality identified. There is a small meningioma along the left frontal convexity with no associated mass effect. A small chronic infarct is seen in the right parietal lobe. Tiny chronic lacunar infarcts are seen in both cerebellar hemispheres as well as within the right periventricular white matter. -Head/Neck CTA:Negative Appreciate neurology input: No further work-up needed for meningioma Hypertension BP variable likely due to anxiety Continue metoprolol Added amlodipine Monitor BP Dizziness likely due to above orthostatic vitals negative PAC on telemetry, Resolved on Repeat EKG PT/OT as able Resolved KIM due to GI losses Renal function improved after IV fluids Monitor renal function Paroxysmal A fib Continue Eliquis, Toprol 25mg daily Eliquis dose increased to 5 mg twice daily as recommended by cardiology Chronic Diastolic CHF Monitor volume status IV lasix as needed Plan to discharge on as needed torsemide if patient gains 2 pounds in a day or 5 or more pounds in a week Anxiety/depression -Buspirone 10mg BID, trazodone 50mg QHS -started melatonin 3mg QHS Arthritis On Nabumetone DVT px Eliquis- Disposition Home with home health Total Time Total Time Spent Total Time Spent (In Minutes): 55 minutes Discharge Plan Discharge Items Patient Disposition: Home - Home Health Services Reason For Visit: HEADACHE, N/V Discharge Diagnosis: Viral gastroenteritis Fecal retention Meningioma Hypertension Acute Kidney Injury Activity: Per Instructions section Exercise/Sports: Gradually increase as tolerated Non-emergency contact: Primary Care Provider Call non-emergency contact if: you have any medication questions, your symptoms worsen, your pain is concerning for you and you have a fever Follow-up/Referrals: Con Coughlin MD [Primary Care Provider] - (Date & Time 07/24/2022 3:00 PM Provider Con Coughlin MD Department Family Medicine [facility] ) Diet: Heart Healthy Diet Texture: Easy to Chew Addtl Attending Provider Instructions: Follow-up with your primary care physician on 07/24/2022 3:00 PM as scheduled Follow-up with your security sales manager as needed. ---Take torsemide 20 mg daily as needed if you gain more than 2 pounds in a day or 5 or more pounds in a week as recommended by your security sales manager. ---Your apixaban dose is increased to 5 mg twice a day as recommended by your security sales manager ----Start taking amlodipine 5 mg daily for better control of your blood pressure.- ----Monitor your blood pressure regularly at home. Discuss with your physician for further adjustment of blood pressure medications as needed. Seek immediate medical attention if your symptoms reoccur or worsen Please take all medications as instructed on discharge list below. Please call if you have any questions or problems. You can reach a [facility] hospitalist on duty at [facility] 24 hours a day by calling [phone] Pending Studies at Discharge: No Stand-Alone Forms: My [facility], Smoking Cessation Medications and DC Order Prescriptions: New Eliquis 5 mg Tablet 5 mg PO BID Qty: 60 1RF amlodipine [Norvasc] 5 mg Tablet 5 mg PO QAM Qty: 30 0RF loperamide 2 mg Capsule 2 mg PO Q8H PRN (Reason: loose stool) 30 Days Qty: 14 0RF Boudreauxs Butt Paste 16 % Ointment 1 applic EXT TID PRN (Reason: skin irritation) Qty: 113 0RF Continued multivitamin tablet 1 tab PO QAM zolpidem 5 mg tablet 5 mg PO HS PRN (Reason: Sleep) Qty: 30 1RF buspirone 10 mg tablet 10 mg PO BID Qty: 60 5RF nabumetone 500 mg tablet 500 mg PO BID levothyroxine [Levoxyl] 100 mcg Tablet 100 mcg PO DAILYBB pantoprazole [Protonix] 40 mg Tablet,Delayed Release (Dr/Ec) 40 mg PO BID rosuvastatin [Crestor] 40 mg Tablet 40 mg PO HS metoprolol succinate 25 mg tablet extended release 24 hr 25 mg PO QAM ondansetron HCl 4 mg tablet 4 mg PO Q8H PRN (Reason: Nausea And Vomiting) gabapentin 300 mg capsule 300 mg PO BID trazodone 50 mg tablet 50 mg PO HS Changed torsemide 20 mg tablet 20 mg PO UD PRN (Reason: Edema) Qty: 30 0RF Rx Instructions: Take torsemide 20 mg daily if you gain 2 pounds in a day or 5 pounds in a week as recommended by your security sales manager. Discontinued Eliquis 2.5 mg tablet 2.5 mg PO BID Qty: 180 0RF cefuroxime axetil 500 mg tablet 500 mg PO BID Rx Instructions: BEGIN 07/12/22 X 10 DAYS Discharge Orders: Discharge Order (Routine); Ordered 07/21/22 Ordered By: Lalo Conte Admission Data Admit Date/Time: 07/14/22 10:50 Attending Provider: Lalo Conte Admit Provider: [facility] Primary Care Provider: Con Coughlin Other Providers: Butch Johnson ; Walter Harvey [facility] ; Roderick Barcenas ; Noah Adams ; Delmar Askew ; Dre Joy ; Venu Seay ; Tyler Ramos Jr ; Michi Sahni ; Sonia Interiano ; Maye Salazar ; Duarte Frey ; Albino Crowe ; Toney Delgado ; Maia Damian ; Kimberly Holloway ; Mike Durham ; Diego Ly ; Dre Ron V.
== END 2022-07-21 12:38 | disposition home health service (06) | DRG 392 ==
LOC: 2N 19:05 → ED 19:05 → 2N 07-14 03:22 → SUATTDRO 07-14 10:50

== ENCOUNTER 2023-01-29 11:29 | Inpatient (IN) ==
--- NOTE | 2023-01-29 11:44 | Emergency Department Note ---
Impression & Plan Pneumonia ADMIT ED Provider Note HPI: History obtained from patient. The patient is a 84-year-old female who presents emergency department with a chief complaint of generalized weakness, nausea, and diarrhea that was ongoing throughout the weekend. Patient states she also had several episodes of vomiting. Patient denies any abdominal pain. Patient states she contacted her primary care doctor today about her symptoms and they called an ambulance for her to be transported to the ED. On arrival here to the ED the patient is mildly hypertensive at 172/83, heart rate is 103, patient has borderline temperature at 37.8. Patient is saturating well on room air on arrival, she is alert and oriented and does not have any focal deficits. Patient denies any focal complaint of pain, states she just feels very weak and tired on my interview. ROS: - Per HPI Differential Diagnosis: Sepsis, pneumonia, UTI, influenza A infection, COVID- 19 infection, viral gastroenteritis, C. difficile colitis, small bowel obstruction, amongst other potential pathologies. *Outpatient medications and allergy history reviewed. PE: General: Alert HEENT: Normocephalic, trachea midline Eyes: Extraocular eye movement is intact, no scleral erythema Pulmonary: Clear to auscultation bilaterally, no wheezing Cardio: Tachycardic rate with regular rhythm GI: Abdomen is soft to palpation : No suprapubic tenderness MSK: No evidence of trauma or malformation of the extremities, no edema Skin: No evidence of rash Neuro: Alert, no focal deficits Psychiatric: Cooperative INDEPENDENT INTERPRETATIONS: monitoring tech: (As interpreted by myself): - An order was placed for continuous cardiac monitoring - Patient was noted to be in sinus rhythm with a rate of 108 EKG: (As interpreted by myself): Rate: 98 Rhythm: Sinus rhythm Intervals: CO interval prolonged at 248 ms, otherwise within normal limits ST changes: No ST elevation Time: 1148 Chest x-ray: (As interpreted by myself): Left-sided pneumonia Interventions provided in ED: -IV fluid bolus, IV ceftriaxone, IV azithromycin Medical Decision Making: Shortly after the patient arrived IV was established lab work obtained, patient was placed on panel monitor. Lab work shows no leukocytosis, hemoglobin is stable 11.2, platelet count is within normal limits, CMP shows no critical findings, creatinine is near baseline at 1.35, there is no transaminitis, high- sensitivity troponin is mildly elevated at 76.2. Patient denies any chest pain, EKG per my interpretation does not show any evidence of any acute ischemic changes. Chest x-ray was obtained and is suggestive of a left-sided pneumonia per my interpretation. Patient states she did have a harsh cough all night last night, suspect this may be the source of her symptoms and generalized fatigue. Patient was placed on IV ceftriaxone and IV azithromycin after blood cultures were drawn in the ED. Viral panel testing was obtained and is dominguez negative. Case was discussed with the on-call hospitalist midlevel provider for [facility] [place][note 2]. Patient was placed for admission in stable condition to the service of Dr. Balderas. Consultants/Discussions held with other healthcare providers: -Hospitalist service, Heather Rosa C[facility] C[facility] DIRECTOR Disposition discussion held by myself with: -Patient Diagnosis: 1. Acute bacterial pneumonia, left lung 2. Elevated high-sensitivity troponin level 3. Elevated procalcitonin 4. Generalized weakness, acute Disposition: Admission Aron Mahoney DO Emergency Medicine Past Med/Surg History Medical History (Updated 01/29/23 @ 17:45 by Aron Mahoney DO) Sepsis due to pneumonia Fall New onset a-fib Moderate mitral regurgitation Mild aortic stenosis Transient ischemic attack (TIA) ~2012>REASON FOR PLAVIX Osteoarthritis Chronic back pain Dyslipidemia History of blood transfusion 2012 2/2 GASTRIC ULCER History of gastric ulcer 2012 Depression CAD (coronary artery disease) Acid reflux OCCASIONAL Spinal stenosis Arthritis Hypothyroidism Chronic kidney disease stage 3 Hypertension Surgical History History of cardiac cath NO STENTS History of coronary artery bypass graft 1998 (1 VESSEL) S/P epidural steroid injection History of esophagogastroduodenoscopy (EGD) 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 S/p reverse total shoulder arthroplasty RT/LEFT History of abdominoplasty PANNICULECTOMY History of colonoscopy History of arthroplasty of right hip History of arthroplasty of left hip History of hysterectomy with oophorectomy History of arthroplasty of left shoulder History of tonsillectomy and adenoidectomy H/O bilateral salpingo-oophorectomy with hyter Family History Father , age 74 Allergic reaction Mother , 80s CHF (congestive heart failure) Other No family history of adverse response to anesthesia Social History Smoking Status: Never smoker Second Hand Exposure: No; Do You Dip or Chew Tobacco: No; Tobacco Cessation Education Requested by Patient: No Hx Alcohol Use: No Hx Substance Use: No Preferred Language: Tajik Communication Ability: Effective Visual Impairment: No Limitations Batch Trucker Required: No Beliefs That Will Affect Care: None marital status: Single Current Living Situation: Alone Current Living Situation Comment: [facility] How many Children do You have: 0 Other Information That Helps Us Care for You: No Feels Safe at Home: Yes Safety Concerns: Feels Safe At This Time Assistive Devices: Glasses and Walker Allergies Allergies Allergy/AdvReac Type Severity Reaction Status Date / Time nitroglycerin AdvReac Severe "PROJECTILE Verified 01/29/23 15:15 VOMITTING" ergotamine AdvReac Intermediate vomiting Verified 01/29/23 15:15 Home Meds Home Medications Medication Instructions Recorded Confirmed levothyroxine 100 mcg tablet 100 mcg PO DAILYBB 01/23/18 01/29/23 (Levoxyl) pantoprazole 40 mg tablet,delayed 40 mg PO BID 01/23/18 01/29/23 release (Protonix) gabapentin 300 mg capsule 300 mg PO BID 07/13/22 01/29/23 rosuvastatin 10 mg tablet (Crestor) 10 mg PO DAILY 11/30/22 01/29/23 benzonatate 100 mg capsule 100 mg PO TID PRN Cough 01/29/23 01/29/23 loperamide 2 mg tablet 2 mg PO QID PRN Diarrhea 01/29/23 01/29/23 meloxicam 7.5 mg tablet 7.5 mg PO QAM PRN Pain 01/29/23 01/29/23 sulfamethoxazole 800 1 tab PO AMHS 01/29/23 01/29/23 mg-trimethoprim 160 mg tablet trazodone 150 mg tablet 150 mg PO HS 01/29/23 01/29/23 Previous Rx's Medication Instructions Recorded buspirone 10 mg tablet 10 mg PO BID #60 tabs 03/22/21 apixaban 5 mg tablet (Eliquis) 5 mg PO BID #180 tabs 07/31/22 calcitriol 0.25 mcg capsule 0.25 mcg PO MoWeFr@0900 #30 caps 12/12/22 metoprolol succinate 50 mg 50 mg PO QAM #30 tabs 12/12/22 tablet,extended release 24 hr ondansetron 4 mg disintegrating 4 mg PO Q8H PRN nausea and 12/12/22 tablet vomiting #30 tabs zolpidem 5 mg tablet 5 mg PO HS PRN Sleep #30 tabs 01/16/23 Results & Data (ED) Vital Signs Vital Signs - 24 hr 01/29/23 11:34 01/29/23 11:41 01/29/23 12:15 Temperature 37.8 C H Temperature Source Oral Pulse Rate 117 H 103 H 113 H Pulse Rate from SpO2 Sensor Respiratory Rate 20 22 Respiratory Effort / Characteristics Non-Labored Spontaneous Respiratory Depth Normal Blood Pressure 172/83 H Blood Pressure Mean 112 Pulse Oximetry 96 97 Oxygen Delivery Method Room Air Room Air Sepsis Recent Fever Within 48 Hours Yes Sepsis New/Unexplained Change in Mental Status N/A Sepsis Action Taken by Nursing No Action Required 01/29/23 13:44 01/29/23 13:44 Temperature Temperature Source Pulse Rate 114 H Pulse Rate from SpO2 Sensor 115 H Respiratory Rate 22 Respiratory Effort / Characteristics Respiratory Depth Blood Pressure 181/103 H Blood Pressure Mean 129 Pulse Oximetry 92 Oxygen Delivery Method Room Air Sepsis Recent Fever Within 48 Hours Sepsis New/Unexplained Change in Mental Status Sepsis Action Taken by Nursing Laboratory Data 01/29/23 11:35 01/29/23 11:35 Lab Results 01/29/23 01/29/23 01/29/23 Range/Units 11:35 11:50 12:14 WBC 6.57 (4.8-10.8) K/ul RBC 3.86 L (4.20-5.40) M/uL Hgb 11.2 L (12.0-16.0) g/dl Hct 34.9 L (37.0-47.0) % MCV 90.4 (80.0-100.0) fL MCH 29.0 (25.0-34.0) pg MCHC 32.1 (32.0-36.0) g/dL RDW Std Deviation 52.9 H (36.4-46.3) fL RDW Coeff of Howie 15.9 H (11.5-14.5) % Plt Count 148 (130-400) K/uL MPV 10.8 (9.4-12.4) fL Immature Gran % (Auto) 0.3 % Neut % (Auto) 87.0 % Lymph % (Auto) 6.7 % [place] % (Auto) 5.6 % Eos % (Auto) 0.2 % Baso % (Auto) 0.2 % Neut # (Auto) 5.72 (1.40-6.50) K/uL Lymph # (Auto) 0.44 L (1.20-3.40) K/uL [place] # (Auto) 0.37 (0.11-0.59) K/uL Eos # (Auto) 0.01 (0.00-0.50) K/uL Baso # (Auto) 0.01 (0.00-0.20) K/uL Immature Gran # (Auto) 0.02 (0.01-0.20) K/uL Sodium 137 (136-145) mmol/L Potassium 4.1 (3.5-5.1) mmol/L Chloride 110 H (98-107) mmol/L Carbon Dioxide 20 L (21-32) mmol/L Anion Gap 7 (3-11) BUN 28 H (6-23) mg/dl Creatinine 1.35 H (0.6-1.2) mg/dl Est Cr Clr Drug Dosing 27.6 ml/min Est GFR ( Amer) 41.1 ml/min Est GFR (Non-Af Amer) 35.5 ml/min BUN/Creatinine Ratio 20.7 H (10-20) Glucose 111 H (70-99(Fasting)) mg/dl Lactate (0.4-2.0) mmol/L Calcium 9.5 (8.6-10.3) mg/dl Magnesium 1.7 (1.7-2.4) mg/dl Total Bilirubin 0.6 (0.2-1.0) mg/dl Direct Bilirubin 0.1 (0-0.2) mg/dl AST 20 (13-39) U/L ALT 14 (7-52) U/L Alkaline Phosphatase 51 (34-104) U/L Troponin I High Sens 76.2 H* (0-14) pg/ml Total Protein 6.6 (6.0-8.3) gm/dl Albumin 3.7 (3.4-5.0) gm/dl Procalcitonin 5.71 H (0-0.5) ng/ml Urine Color Yellow Urine Appearance Clear (Clear) Urine pH 6.5 (4.5-7.5) Ur Specific [place] 1.017 (1.000-1.030) Urine Protein Negative (Negative) Urine Glucose (UA) Negative (Negative) Urine Ketones Negative (Negative) Urine Blood Negative (Negative) Urine Nitrite Negative (Negative) Urine Bilirubin Negative (Negative) Urine Urobilinogen Negative (Negative) Ur Leukocyte Esterase Trace H (Negative) Urine WBC (Auto) 1-5 (0-5) /hpf Urine RBC (Auto) 10-30 H (0-4) /hpf U Hyaline Cast (Auto) 0 (0-5) /lpf U Epithel Cells (Auto) 10-20 H (0-5) /lpf Urine Bacteria (Auto) Negative (Negative) Adenovirus (PCR) Not Detected (NotDetected) B. pertussis DNA (PCR) Not Detected (NotDetected) B.parapertussis DNA PCR Not Detected (NotDetected) C. pneumoniae DNA (PCR) Not Detected (NotDetected) Coronavirus OC43 (PCR) Not Detected (NotDetected) Coronavirus HKU1 (PCR) Not Detected (NotDetected) Coronavirus 229E (PCR) Not Detected (NotDetected) SARS-CoV-2 (PCR) Not Detected (NotDetected) Coronavirus NL63 (PCR) Not Detected (NotDetected) Human Metapneumovir PCR Not Detected (NotDetected) Influenza Type A (PCR) Not Detected (NotDetected) Influenza Type B (PCR) Not Detected (NotDetected) M. pneumoniae (PCR) Not Detected (NotDetected) Parainfluenza 1 (PCR) Not Detected (NotDetected) Parainfluenza 2 (PCR) Not Detected (NotDetected) Parainfluenza 3 (PCR) Not Detected (NotDetected) Parainfluenza 4 (PCR) Not Detected (NotDetected) RSV (PCR) Not Detected (NotDetected) Entero/Rhino (PCR) Not Detected (NotDetected) 01/29/23 Range/Units 12:25 WBC (4.8-10.8) K/ul RBC (4.20-5.40) M/uL Hgb (12.0-16.0) g/dl Hct (37.0-47.0) % MCV (80.0-100.0) fL MCH (25.0-34.0) pg MCHC (32.0-36.0) g/dL RDW Std Deviation (36.4-46.3) fL RDW Coeff of Howie (11.5-14.5) % Plt Count (130-400) K/uL MPV (9.4-12.4) fL Immature Gran % (Auto) % Neut % (Auto) % Lymph % (Auto) % [place] % (Auto) % Eos % (Auto) % Baso % (Auto) % Neut # (Auto) (1.40-6.50) K/uL Lymph # (Auto) (1.20-3.40) K/uL [place] # (Auto) (0.11-0.59) K/uL Eos # (Auto) (0.00-0.50) K/uL Baso # (Auto) (0.00-0.20) K/uL Immature Gran # (Auto) (0.01-0.20) K/uL Sodium (136-145) mmol/L Potassium (3.5-5.1) mmol/L Chloride (98-107) mmol/L Carbon Dioxide (21-32) mmol/L Anion Gap (3-11) BUN (6-23) mg/dl Creatinine (0.6-1.2) mg/dl Est Cr Clr Drug Dosing ml/min Est GFR ( Amer) ml/min Est GFR (Non-Af Amer) ml/min BUN/Creatinine Ratio (10-20) Glucose (70-99(Fasting)) mg/dl Lactate 1.1 (0.4-2.0) mmol/L Calcium (8.6-10.3) mg/dl Magnesium (1.7-2.4) mg/dl Total Bilirubin (0.2-1.0) mg/dl Direct Bilirubin (0-0.2) mg/dl AST (13-39) U/L ALT (7-52) U/L Alkaline Phosphatase (34-104) U/L Troponin I High Sens (0-14) pg/ml Total Protein (6.0-8.3) gm/dl Albumin (3.4-5.0) gm/dl Procalcitonin (0-0.5) ng/ml Urine Color Urine Appearance (Clear) Urine pH (4.5-7.5) Ur Specific [place] (1.000-1.030) Urine Protein (Negative) Urine Glucose (UA) (Negative) Urine Ketones (Negative) Urine Blood (Negative) Urine Nitrite (Negative) Urine Bilirubin (Negative) Urine Urobilinogen (Negative) Ur Leukocyte Esterase (Negative) Urine WBC (Auto) (0-5) /hpf Urine RBC (Auto) (0-4) /hpf U Hyaline Cast (Auto) (0-5) /lpf U Epithel Cells (Auto) (0-5) /lpf Urine Bacteria (Auto) (Negative) Adenovirus (PCR) (NotDetected) B. pertussis DNA (PCR) (NotDetected) B.parapertussis DNA PCR (NotDetected) C. pneumoniae DNA (PCR) (NotDetected) Coronavirus OC43 (PCR) (NotDetected) Coronavirus HKU1 (PCR) (NotDetected) Coronavirus 229E (PCR) (NotDetected) SARS-CoV-2 (PCR) (NotDetected) Coronavirus NL63 (PCR) (NotDetected) Human Metapneumovir PCR (NotDetected) Influenza Type A (PCR) (NotDetected) Influenza Type B (PCR) (NotDetected) M. pneumoniae (PCR) (NotDetected) Parainfluenza 1 (PCR) (NotDetected) Parainfluenza 2 (PCR) (NotDetected) Parainfluenza 3 (PCR) (NotDetected) Parainfluenza 4 (PCR) (NotDetected) RSV (PCR) (NotDetected) Entero/Rhino (PCR) (NotDetected) Administered Medications Acetaminophen (Acetaminophen 325 Mg Tab) 650 mg PO Q4H PRN PRN Reason: Pain or Fever Stop: 02/28/23 14:09 Last Admin: 01/29/23 15:33 Dose: 650 mg Documented By: QGV Guaifenesin (Guaifenesin 600 Mg Tabcr) 1,200 mg PO Q12 YAN Stop: 02/28/23 15:59 Last Admin: 01/29/23 15:33 Dose: 1,200 mg Documented By: QGV Discontinued Medications Guaifenesin (Guaifenesin 600 Mg Tabcr) Confirm Administered Dose 1,200 mg PO .STK-MED ONE Stop: 01/29/23 15:22 Last Admin: 01/29/23 15:33 Dose: Not Given Documented By: QGV Sodium Chloride (Nss) 1,000 mls @ 999 mls/hr IV .Q1H1M YAN Stop: 01/29/23 12:45 Last Infusion: 01/29/23 13:35 Dose: Infused Documented By: Admin: 01/29/23 11:52 Dose: 999 mls/hr Documented By: QGV Ceftriaxone Sodium (Rocephin) 1,000 mg in 50 mls @ 100 mls/hr IV NOW STA; Protocol Stop: 01/29/23 13:58 Last Infusion: 01/29/23 14:14 Dose: Infused Documented By: Admin: 01/29/23 13:34 Dose: 100 mls/hr Documented By: QGV Azithromycin 500 mg/ Dextrose 255 mls @ 127.5 mls/hr IV NOW STA Stop: 01/29/23 15:28 Last Infusion: 01/29/23 17:22 Dose: Infused Documented By: Admin: 01/29/23 14:14 Dose: 127.5 mls/hr Documented By: QGV Imaging Data Radiologist's Impression: Chest X-Ray 01/29/23 11:40 XR chest 1V portable HISTORY: 84 years-old Female Sepsis acute sepsis COMPARISON: 12/07/2022 TECHNIQUE: AP view of the chest FINDINGS: Sternotomy wires. Cardiac silhouette is enlarged. Mixed interstitial and alveolar opacities throughout the left lung. Small left pleural effusion. Pulmonary vascular congestion. The right lung is otherwise generally clear. Bilateral shoulder arthroplasties. IMPRESSION: 1. Cardiomegaly with pulmonary vascular congestion. 2. Mixed interstitial and alveolar opacities throughout the left lung suggestive of asymmetric pulmonary edema versus pneumonia. 3. Small left pleural effusion. ACT 112: Negative or not required by law. The above report was generated using voice recognition software. It may contain grammatical, syntax or spelling errors. Electronically signed by: Phil Davis M.D. 01/29/2023 12:58 PM Discharge Plan Visit Data Chief Complaint: Illness ED Provider: Aron Mahoney Discharge Problem: Pneumonia Patient Disposition: Admitted As Inpatient Discharge Instructions Interventions: ED Discharge Assessment Last Done: 01/29/23 16:16 Discharge Problem: Pneumonia Qualifiers: Pneumonia type: due to unspecified organism Laterality: right Lung location: u nspecified part of lung Qualified Code(s): J18.9 - Pneumonia, unspecified organism
[2023-01-29] MEDS ORDERED: SODIUM CHLORIDE 0.9% 1,000 ML IV SCH ×2 (11:45→15:00)
[2023-01-29 12:07] LABS: Basophils # (auto) 0.01 K/uL (0.00-0.20); Basophils % (auto) 0.2 %; Eosinophils # (auto) 0.01 K/uL (0.00-0.50); Eosinophils % (auto) 0.2 %; Hematocrit (blood only) 34.9 % (37.0-47.0); Hemoglobin 11.2 g/dl (12.0-16.0); Immature Granulocytes # (auto) 0.02 K/uL (0.01-0.20); Immature Granulocytes % (auto) 0.3 %; Lymphocytes # (auto) 0.44 K/uL (1.20-3.40); Lymphocytes % (auto) 6.7 %; Mean Corpuscular Hgb Conc 32.1 g/dL (32.0-36.0); Mean Corpuscular Volume 90.4 fL (80.0-100.0); Mean Platelet Volume 10.8 fL (9.4-12.4); Monocytes # (auto) 0.37 K/uL (0.11-0.59); Monocytes % (auto) 5.6 %; Neutrophils # (auto) 5.72 K/uL (1.40-6.50); Platelet Count 148 K/uL (130-400); RDW Coefficient of Variation 15.9 % (11.5-14.5); RDW Standard Deviation 52.9 fL (36.4-46.3); Red Blood Count 3.86 M/uL (4.20-5.40); White Blood Count 6.57 K/ul (4.8-10.8)
[2023-01-29 12:20] LABS: Albumin Level 3.7 gm/dl (3.4-5.0); BUN Creatinine Ratio 20.7 (10-20); Bilirubin Direct 0.1 mg/dl (0-0.2); Bilirubin,Total 0.6 mg/dl (0.2-1.0); Calcium 9.5 mg/dl (8.6-10.3); Creatinine Clr Calc Pharmacy 27.6 ml/min; Est GFR (African American) 41.1 ml/min; Est GFR (Non-African American) 35.5 ml/min; Magnesium 1.7 mg/dl (1.7-2.4); Potassium 4.1 mmol/L (3.5-5.1); Total Protein 6.6 gm/dl (6.0-8.3)
[2023-01-29 12:35] LABS: Troponin I High Sensitivity 76.2 pg/ml (0-14)
--- NOTE | 2023-01-29 12:59 | XRay Report ---
XR chest 1V portable HISTORY: 84 years-old Female Sepsis acute sepsis COMPARISON: 12/07/2022 TECHNIQUE: AP view of the chest FINDINGS: Sternotomy wires. Cardiac silhouette is enlarged. Mixed interstitial and alveolar opacities throughou t the left lung. Small left pleural effusion. Pulmonary vascular congestion. The right lung is otherw ise generally clear. Bilateral shoulder arthroplasties. IMPRESSION: 1. Cardiomegaly with pulmonary vascular congestion. 2. Mixed interstitial and alveolar opacities throughout the left lung suggestive of asymmetric pulmon kat edema versus pneumonia. 3. Small left pleural effusion. ACT 112: Negative or not required by law. The above report was generated using voice recognition software. It may contain grammatical, syntax o r spelling errors. Electronically signed by: Phil Davis M.D. 01/29/2023 12:58 PM
[2023-01-29 13:02] LABS: Appearance Urine Clear (Clear); Bacteria Urine Automated Negative (Negative); Bilirubin Urine Negative (Negative); Blood Urine Negative (Negative); Cast Urine Automated 0 /lpf (0-5); Color Urine Yellow; Glucose Urine UA Negative (Negative); Ketones Urine Negative (Negative); Leukocyte Esterase Urine Trace (Negative); Nitrite Urine Negative (Negative); Protein Urine Negative (Negative); Specific Gravity Urine 1.017 (1.000-1.030); Urobilinogen Urine Negative (Negative); pH Urine 6.5 (4.5-7.5)
[2023-01-29 13:12] LABS: Adenovirus PCR Not Detected (NotDetected); Bordetella parapertussis PCR Not Detected (NotDetected); Bordetella pertussis PCR Not Detected (NotDetected); Chlamydia pneumoniae PCR Not Detected (NotDetected); Coronavirus 229E PCR Not Detected (NotDetected); Coronavirus CoV-2 (COVID19)PCR Not Detected (NotDetected); Coronavirus HKU1 PCR Not Detected (NotDetected); Coronavirus NL63 PCR Not Detected (NotDetected); Coronavirus OC43PCR Not Detected (NotDetected); Human Metapneumovirus PCR Not Detected (NotDetected); Influenza A PCR Not Detected (NotDetected); Influenza B PCR Not Detected (NotDetected); Mycoplasma pneumoniae PCR Not Detected (NotDetected); Parainfluenza Virus 1 PCR Not Detected (NotDetected); Parainfluenza Virus 2 PCR Not Detected (NotDetected); Parainfluenza Virus 3 PCR Not Detected (NotDetected); Parainfluenza Virus 4 PCR Not Detected (NotDetected); Respiratory Syncytial VirusPCR Not Detected (NotDetected); Rhinovirus/Enterovirus PCR Not Detected (NotDetected)
[2023-01-29] MEDS ORDERED: cefTRIAXone SODIUM 1,000 MG/50 ML BAG IV STA (13:29)
[2023-01-29] MEDS ORDERED: AZITHROMYCIN 500 MG in DEXTROSE 5% 250 ML IV STA (13:29)
[2023-01-29] MEDS ORDERED: MAGNESIUM HYDROXIDE SUSP 30 ML UDC PO PRN (14:10)
[2023-01-29] MEDS ORDERED: ALUMINUM/MAGNESIUM SUSP 30 ML UDC PO PRN (14:10)
[2023-01-29] MEDS ORDERED: POLYETHYLENE (MIRALAX) 17 GM PACK PO PRN (14:10)
--- NOTE | 2023-01-29 14:31 | History & Physical Report ---
Date of Service January 29, 2023 Assessment & Plan (1) Sepsis due to pneumonia: (2) Acute on chronic diastolic CHF (congestive heart failure): (3) Atrial fibrillation with rapid ventricular response: (4) Hypertension: (5) Hypothyroidism: (6) Hypomagnesemia: (7) Hypophosphatemia: Plan Ms. Howard is an 84 year old female that presents today with early signs of sepsis including tachycardia, on and off fevers/chills, without leukocytosis, no hypoxia and is on room air. She reports that her symptoms started on Sunday night and worsened overnight with orthopnea. Here in the ED, chest x-ray suggestive of pneumonia patient was started on ceftriaxone and azithromycin along with receiving 1LNSB. No leukocytosis, procalcitonin elevated 5.71, bio fire negative, lactic acid 1.1, troponin 76 which is up from her baseline which is typically in the 20s; no ischemic changes on ECG and suspect related to ischemic demand rather than ACS. Creatinine 1.35; baseline 1.2-1.7. Phosphorus level 2.1, Mg+ 1.6 PMH includes: Atrial Fibrillation (On Eliquis),HFpEF, history of TIA, CAD, CKD stage III, hypothyroidism, depression, and GERD. Pt reports that she has a cardiac murmur since she was 3 years old after having rheumatic fever. She has never had cardiac intervention for this. Most recent ECHO 11/2022 EF 55-59%, LV wall motion normal, Mild aortic stenosis, trace pulmonic valve regurgitation, mild MR/TR. Suspect patient is experiencing early signs of sepsis with pneumonia with component of acute on chronic heart failure. Will continue IV antibiotic treatment, replace electrolytes, place Edmonds for strict I/O, and and will trend procalcitonin, troponin along with supportive treatment including ISB and Mucinex, and await further reccs from Cardiology. For completeness we will obtain sputum and blood cultures. Sepsis due to pneumonia: Acute Chest x-ray suggestive of pneumonia vs pulmonary edema Procalcitonin 5.71, lactic acid 1.1 Troponin 76 which is elevated from her baseline mid 20s; --> 117--> 113; will trend Q6. No ischemia noted on ECG and do not suspect ACS or other ischemic demand No leukocytosis Started on ceftriaxone plus azithromycin in ED; continue and adjust based on culture results Blood and sputum cultures ordered UA negative Received 1L NSB in ED; will hold further fluids due to HF Supportive treatment with's Mucinex, ISB Acute on Chronic CHF: Acute BNP 534 Lasix 40 mg IV BID ordered Edmonds catheter ordered with strict I/O Follows with [place] [facility]; consult placed for AM Hypomagnesemia: Acute Serum Mg+ 1.6; replace with 2 G IV; trend in AM No ectopy on monitor Hypophosphatemia: Acute Serum Phos+ 2.1; ordered Sodium Phos 15 mmol; trend in AM H/O Atrial fibrillation: Chronic stable Takes Eliquis and metoprolol; continue ECG with NSR with first degree AVB QTc: 426 H/O Rheumatic Fever: Chronic Has audible murmur; no cardiac intervention prior to this HLD: Chronic stable Takes rosuvastatin; continue Hypothyroidism: Chronic stable Most recent TSH Takes levothyroxine; continue Depression: Chronic stable Takes BuSpar; continue Disposition: PCP: Dr. Flores CODE STATUS: Full code VTE prophylaxis: On Eliquis I spent a total of 87 minutes coordinating, documenting, and providing care for this patient excluding time spent in the performance of separately billed services. All of the aforementioned completed while collaborating with the assigned attending physician for a full treatment plan. Please see their addendum for further details. History of Present Illness Chief Complaint: cough, weakness Primary Care Provider: Con Coughlin MD Ms. Howard is an 84 year old female that presents today with early signs of sepsis including tachycardia, on and off fevers/chills, without leukocytosis, no hypoxia and is on room air. She reports that her symptoms started on Sunday night and worsened overnight with orthopnea. She had ahard time getting up from bed to go to the bathroom due to weakness. Here in the ED, chest x-ray suggestive of pneumonia patient was started on ceftriaxone and azithromycin along with receiving 1LNSB. No leukocytosis, procalcitonin elevated 5.71, bio fire negative, lactic acid 1.1, troponin 76 which is up from her bas jorge luis which is typically in the 20s; no ischemic changes on ECG and suspect related to ischemic demand rather than ACS. Creatinine 1.35; baseline 1.2-1.7. Phosphorus level 2.1, Mg+ 1.6. Patient was admitted to [facility] 12/07-12/12 for hypercalcemia, nausea, vomiting likely related to her hiatal hernia. PMH includes: Atrial Fibrillation (On Eliquis),HFpEF, history of TIA, CAD, CKD stage III, hypothyroidism, depression, and GERD. Pt reports that she has a cardiac murmur since she was 3 years old after having rheumatic fever. She has never had cardiac intervention for this. Most recent ECHO 11/2022 EF 55-59%, LV wall motion normal, Mild aortic stenosis, trace pulmonic valve regurgitation, mild MR/TR. Pt denies COLBERT, dizziness, SOB, chest pain, abdominal pain or tenderness, visual or auditory changes, recent falls or trauma. Suspect patient is experiencing early signs of sepsis with pneumonia with component of acute on chronic heart failure. Will continue IV antibiotic treatm ent, replace electrolytes and and will trend procalcitonin, troponin along with supportive treatment including ISB and Mucinex. For completeness we will obtain sputum and blood cultures. Patient will be admitted for further evaluation management. Please see A/P for further details. Allergies Allergy/AdvReac Type Severity Reaction Status Date / Time nitroglycerin AdvReac Severe "PROJECTILE Verified 01/29/23 15:15 VOMITTING" ergotamine AdvReac Intermediate vomiting Verified 01/29/23 15:15 Home Medications Medication Instructions Recorded Confirmed Type levothyroxine 100 mcg tablet 100 mcg PO DAILYBB 01/23/18 01/29/23 History (Levoxyl) pantoprazole 40 mg tablet,delayed 40 mg PO BID 01/23/18 01/29/23 History release (Protonix) buspirone 10 mg tablet 10 mg PO BID #60 tabs 03/22/21 01/29/23 Rx gabapentin 300 mg capsule 300 mg PO BID 07/13/22 01/29/23 History apixaban 5 mg tablet (Eliquis) 5 mg PO BID #180 tabs 07/31/22 01/29/23 Rx rosuvastatin 10 mg tablet (Crestor) 10 mg PO DAILY 11/30/22 01/29/23 History calcitriol 0.25 mcg capsule 0.25 mcg PO MoWeFr@0900 #30 caps 12/12/22 01/29/23 Rx metoprolol succinate 50 mg 50 mg PO QAM #30 tabs 12/12/22 01/29/23 Rx tablet,extended release 24 hr ondansetron 4 mg disintegrating 4 mg PO Q8H PRN nausea and 12/12/22 01/29/23 Rx tablet vomiting #30 tabs zolpidem 5 mg tablet 5 mg PO HS PRN Sleep #30 tabs 01/16/23 01/29/23 Rx benzonatate 100 mg capsule 100 mg PO TID PRN Cough 01/29/23 01/29/23 History loperamide 2 mg tablet 2 mg PO QID PRN Diarrhea 01/29/23 01/29/23 History meloxicam 7.5 mg tablet 7.5 mg PO QAM PRN Pain 01/29/23 01/29/23 History sulfamethoxazole 800 1 tab PO AMHS 01/29/23 01/29/23 History mg-trimethoprim 160 mg tablet trazodone 150 mg tablet 150 mg PO HS 01/29/23 01/29/23 History Past Med/Surg History Medical History Hypophosphatemia Hypomagnesemia Acute on chronic diastolic CHF (congestive heart failure) Sepsis due to pneumonia Fall New onset a-fib Moderate mitral regurgitation Mild aortic stenosis Transient ischemic attack (TIA) ~2013>REASON FOR PLAVIX Osteoarthritis Chronic back pain Dyslipidemia History of blood transfusion 2012 22 GASTRIC ULCER History of gastric ulcer 2012 Depression CAD (coronary artery disease) Acid reflux OCCASIONAL Spinal stenosis Arthritis Hypothyroidism Chronic kidney disease stage 3 Hypertension Surgical History History of cardiac cath NO STENTS History of coronary artery bypass graft 1998 (1 VESSEL) S/P epidural steroid injection History of esophagogastroduodenoscopy (EGD) 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 S/p reverse total shoulder arthroplasty RT/LEFT History of abdominoplasty PANNICULECTOMY History of colonoscopy History of arthroplasty of right hip History of arthroplasty of left hip History of hysterectomy with oophorectomy History of arthroplasty of left shoulder History of tonsillectomy and adenoidectomy H/O bilateral salpingo-oophorectomy with hyter Family History Father , age 74 Allergic reaction Mother , 80s CHF (congestive heart failure) Other No family history of adverse response to anesthesia Social History Smoking Status: Never smoker Second Hand Exposure: No; Do You Dip or Chew Tobacco: No; Tobacco Cessation Education Requested by Patient: No Hx Alcohol Use: No Hx Substance Use: No Preferred Language: Cameroonian Communication Ability: Effective Visual Impairment: No Limitations [employer] Required: No Beliefs That Will Affect Care: None marital status: Single Current Living Situation: Alone Current Living Situation Comment: [facility] Living How many Children do You have: 0 Other Information That Helps Us Care for You: No Feels Safe at Home: Yes Safety Concerns: Feels Safe At This Time Assistive Devices: Glasses and Walker Review of Systems Review of Systems: Neuro: (-) Falls, trauma, slurred speech (+) weakness (+) fever/chills HEENT: (-) COLBERT, dizziness, dysphagia, visual or auditory changes CV: (-) CP, palpitations, swelling Resp: (-) SOB GI: (-) appetite changes, N/V/D, bowel changes : (-) urinary changes Skin: (-) rashes Psych: (-) anxiety, depression Physical Exam Physical Exam: Neuro: AAOx4, PERRLA, no aphagia, memory changes, CNII-XII grossly intact HEENT: head normocephalic, moist mucus membranes CV: S1/S2, (+) M LSB (-)G/R, (-) edema, cap refill < 3 seconds Resp: Lungs course in bases. On RA GI: Abdomen S/NT/ND, Ax4 bowel sounds, (-) CVA tenderness Musculoskeletal: 5/5 B/L UE strength, 4/5 B/L LE strength. (+) weakness Skin: (-) rashes , (-) erythema. (+) small petechiae on bilateral LE that she claims to be chronic. Psych: euthymic mood Results & Data Results & Data Vital Signs (Past 12 Hours) Vital Signs Temp Pulse Resp BP Pulse Ox O2 Del Method 01/29/23 12:15 113 H 01/29/23 11:41 103 H 22 97 Room Air 01/29/23 11:34 37.8 C H 117 H 20 172/83 H 96 Room Air Laboratory Results Short CBC 01/29/23 Range/Units 11:35 WBC 6.57 (4.8-10.8) K/ul Hgb 11.2 L (12.0-16.0) g/dl Hct 34.9 L (37.0-47.0) % Plt Count 148 (130-400) K/uL BMP 01/29/23 11:35 Sodium 137 Potassium 4.1 Chloride 110 H Carbon Dioxide 20 L BUN 28 H Creatinine 1.35 H Glucose 111 H Calcium 9.5 Liver Function 01/29/23 Range/Units 11:35 Total Bilirubin 0.6 (0.2-1.0) mg/dl Direct Bilirubin 0.1 (0-0.2) mg/dl AST 20 (13-39) U/L ALT 14 (7-52) U/L Alkaline Phosphatase 51 (34-104) U/L Albumin 3.7 (3.4-5.0) gm/dl Urine 01/29/23 Range/Units 12:14 Urine Color Yellow Urine Appearance Clear (Clear) Urine pH 6.5 (4.5-7.5) Ur Specific [place] 1.017 (1.000-1.030) Urine Protein Negative (Negative) Urine Glucose (UA) Negative (Negative) Diagnostic Findings Chest X-Ray 01/29/23 11:40 XR chest 1V portable HISTORY: 84 years-old Female Sepsis acute sepsis COMPARISON: 12/07/2022 TECHNIQUE: AP view of the chest FINDINGS: Sternotomy wires. Cardiac silhouette is enlarged. Mixed interstitial and alveolar opacities throughout the left lung. Small left pleural effusion. Pulmonary vascular congestion. The right lung is otherwise generally clear. Bilateral shoulder arthroplasties. IMPRESSION: 1. Cardiomegaly with pulmonary vascular congestion. 2. Mixed interstitial and alveolar opacities throughout the left lung suggestive of asymmetric pulmonary edema versus pneumonia. 3. Small left pleural effusion. ACT 112: Negative or not required by law. The above report was generated using voice recognition software. It may contain grammatical, syntax or spelling errors. Electronically signed by: Phil Davis M.D. 01/29/2023 12:58 PM Code Status & VTE Plan Code Status Full code in the event of cardiac or respiratory arrest VTE Prophylaxis Plan VTE Prophylaxis will be ordered: Yes Supervising Physician Co-Signing Physician Notes Patient seen and examined independently. Discussed with above provider Patient is a 84-year-old female with past medical history of paroxysmal A-fib, HFpEF, who presents to the hospital due to shortness of breath and cough for 1 day. Physical examination; Patient is alert oriented x 3; in mild respiratory distress Lung auscultation reveals crackles bilaterally to mid and upper lung field. JVP elevated CVSsystolic murmur Abdomensoft nontender Neurogrossly intact Chest x-ray on admission personally reviewed; pulmonary edema with more infiltrates on the left side. Assessment/plan Pneumonia Acute on chronic CHF On IV antibiotic with ceftriaxone and azithromycin. Also obtain blood culture Will give IV Lasix 40 mg once now and 40 mg at night Strict input and output monitoring Cardiology consultation Please note the above document was generated using voice recognition software. It may contain grammatical, syntax or spelling errors. Any formal questions or concerns about the content, text or information contained within the body of this dictation should be directly addressed to the provider for clarification (4) Hypertension Hypertension type: unspecified Qualified Code(s): I10 - Essential (primary) hypertension (5) Hypothyroidism Hypothyroidism type: unspecified Qualified Code(s): E03.9 - Hypothyroidism, unspecified
[2023-01-29] MEDS ORDERED: guaiFENesin 600 MG TABCR PO ONE (15:21)
[2023-01-29] MEDS ORDERED: FUROSEMIDE 40 MG/4 ML VIAL IV ONE ×3 (15:29→21:00)
[2023-01-29 15:32] LABS: Magnesium 1.6 mg/dl (1.7-2.4); Phosphorus 2.1 mg/dl (2.5-4.9)
[2023-01-29] MEDS: guaiFENesin 600 MG TABCR PO SCH (15:33)
[2023-01-29] MEDS: ACETAMINOPHEN 325 MG TAB PO PRN (15:33)
[2023-01-29 15:42] LABS: Troponin I High Sensitivity 117.8 pg/ml (0-14)
[2023-01-29] MEDS ORDERED: INFLUENZA VACCINE HIGH-DOSE (HD-IIV4) PF 65+ 0.7mL SYR IM ONE (17:20)
[2023-01-29 18:28] LABS: Appearance Urine Clear (Clear); Bilirubin Urine Negative (Negative); Blood Urine Negative (Negative); Color Urine Yellow; Glucose Urine UA Negative (Negative); Ketones Urine Negative (Negative); Leukocyte Esterase Urine Negative (Negative); Nitrite Urine Negative (Negative); Protein Urine Negative (Negative); Urobilinogen Urine Negative (Negative); pH Urine 5.5 (4.5-7.5)
[2023-01-29] MEDS ORDERED: SODIUM PHOSPHATE 3 MMOL/1 ML INFUSION IV STA (18:54)
--- NOTE | 2023-01-29 19:07 | Electrocardiogram Report ---
Test Reason : Blood Pressure : / mmHG Vent. Rate : 098 BPM Atrial Rate : 098 BPM P-R Int : 248 ms QRS Dur : 076 ms QT Int : 334 ms P-R-T Axes : 064 007 003 degrees QTc Int : 426 ms Poor data quality, interpretation may be adversely affected Sinus rhythm with 1st degree A-V block Cannot rule out Anterior infarct (cited on or before 09-DEC-2022) Abnormal ECG When compared with ECG of 09-DEC-2022 05:26, No significant change was found Confirmed by Venu Seay ([id number]) on 01/29/2023 7:06:19 PM Referred By: Confirmed By:Venu Seay
[2023-01-29] MEDS ORDERED: SODIUM PHOSPHATE 15 MMOL in SODIUM CHLORIDE 0.9% 250 ML IV ONE (19:30)
--- OUTSIDE RECORDS SUMMARY | 2023-01-29 20:06 | External Medical Summary | Summary of Care ---
Author Name Unknown Organization [facility] Address [address] [place] [address] Phone [phone] Care Team Providers Care Bench Worker Binding Name Role Phone Con Coughlin MD Primary Care Provider [phone] Reason for Visit * Reason Comments [facility]: Maintenance Encounter Details Date Type Department Care Team (Late st Contact Info) Description 01/25/2023 5:30 PM EST Home Visit [facility], [facility] [address] [facility] [place] [address] Lana Lieberman, KHARI [address] [facility] [place] [address] Allergies Active Allergy Reactions Criticality Noted Date Comments Ergotamine 03/01/2000 vomit Nitroglycerin 03/14/2007 vomitting documented as of this encounter (statuses as of 01/25/2023) Medications Medication Sig Dispensed Refills Start Date End Date Status Acetaminophen 500 MG Oral Tablet (Tylenol) Take 1 Tab by mouth 3 times a day. 100 Tab 0 11/12/2020 Active Eliquis 5 MG Oral Tablet Take 1 Tablet by mouth in the morning and 1 Tablet before bedtime. 0 08/25/2022 Active busPIRone HCl 10 MG Oral Tablet (Buspar)Indication s:Anxiety state TAKE ONE TABLET BY MOUTH TWICE DAILY 60 Tablet 5 09/22/2022 Active Gabapentin 300 MG Oral Capsule (Neurontin)Indicat ions:DDD (degenerative disc disease), lumbar Take 1 Capsule by mouth in the morning and 1 Capsule at noon and 1 Capsule before bedtime. 90 Capsule 5 10/10/2022 Active Loperamide HCl 2 MG Oral Tablet (Imodium A-D)Indications:Ch ronic diarrhea One tablet four times a day as needed 60 Tablet 1 11/07/2022 Active Levothyroxine Sodium 100 MCG Oral Tablet (Levoxyl) Take 1 Tablet by mouth in the morning. (at least 30 min prior to breakfast or other meds). 90 Tablet 3 11/20/2022 Active Rosuvastatin Calcium 10 MG Oral Tablet (Crestor)Indicatio ns:Dyslipidemia, goal LDL below 100 Take 1 Tablet by mouth daily. 90 Tablet 0 11/20/2022 Active Pantoprazole Sodium 40 MG Oral Tablet Delayed Release (Protonix)Indicati ons:Gastric ulcer without hemorrhage or perforation, unspecified chronicity,Gastroe sophageal reflux disease with esophagitis without hemorrhage Take 1 Tablet by mouth in the morning and 1 Tablet before bedtime. 180 Tablet 1 11/20/2022 Active DIURETIC TITRATION PLAN If no improvement on day 3, contact heart failure managing provider. 1 Each 0 12/15/2022 Active Calcitriol 0.25 MCG Oral Capsule (Rocaltrol) Take 1 Capsule by mouth in the morning. M-W-- three days a week . 0 12/15/2022 Active Meloxicam 7.5 MG Oral Tablet (Mobic)Indications :Bilateral shoulder region arthritis Take 1 Tablet by mouth in the morning. for pain.. 30 Tablet 5 12/18/2022 Active Ondansetron HCl 4 MG Oral Tablet (Zofran)Indication s:Nausea TAKE ONE TABLET BY MOUTH EVERY 6 HOURS NEEDED FOR NAUSEA 30 Tablet 1 01/15/2023 Active Benzonatate 100 MG Oral Capsule (Tessalon Perles)Indications :Viral URI with cough Take 1 Capsule by mouth 3 times a day as needed for Cough. 30 Capsule 1 01/15/2023 Active Metoprolol Succinate ER 50 MG Oral Tablet Extended Release 24 Hour (toPROL XL) Take 1 Tablet by mouth in the morning. 90 Tablet 1 01/16/2023 Active traZODone HCl 150 MG Oral Tablet (Desyrel)Indicatio ns:Persistent insomnia One at bedtime 30 Tablet 5 01/17/2023 Active Sulfamethoxazole-T rimethoprim 800-160 MG Oral Tablet (Bactrim DS)Indications:Acu te maxillary sinusitis, recurrence not specified Take 1 Tablet by mouth in the morning and 1 Tablet before bedtime. Do all this for 10 days. Until gone.. 20 Tablet 0 01/23/2023 02/02/2023 Active documented as of this encounter (statuses as of 01/25/2023) Active Problems Problem Noted Date Diagnosed Date Hypercalcemia 12/15/2022 Last Assessment & Plan: No longer on supplementation. Follow up with nephrology (HFpEF) heart failure with preserved ejection fr action 12/07/2022 Overview: Ca 11.6 Hiatal hernia 12/07/2022 Overview: moderate Current moderate episode of major depressive disorder without prior episode 04/07/2022 Food insecurity 08/01/2021 Overview: Per [facility] Protocol Hypertensive heart and kidne y disease with chronic diastolic congestive heart failure and stage 3b chronic kidney disease 07/27/2021 Last Assessment & Plan: Current Status: "Stable" for patient / At or near baseline Degree of Condition Awareness: Demonstrates very good awareness of condition, disease course, and prognosis "RED FLAG" HF Symptoms: Leg Swelling (Examples: "I can't wear certain socks or shoes", "My pants feel tight") Increased dyspnea on exertion (Example: "I can't walk to the kitchen or up the stairs") Current Heart Failure Classifications: No symptoms ([employer] [place] [employer] CLASS I) Diagnostic Review: Recent Labs Units 10/04/22 1159 07/06/22 1339 07/14/21 1459 BNP (NT-PRO-BNP) - [facility] pg/mL -- -- 3,432* ESTIMATED GLOMERULAR FILTRATION RATE - [facility] mL/min 35* < > 44* HGB - [facility] g/dL 12.0 < > -- < > = values in this interval not displayed. Medication Regimen: Beta Sha Therapy: Metoprolol Succinate (ER) VIKKI Inhibitor/ARB Therapy: Other: none Diuretic therapy: none Self - Management Plan She used to be on torsemide, could consider 20mg daily x 3 days Exacerbation Plan BMP Pro-BNP Her weights are stable on AMC. She appears euvolemic today. Spondylosis of lumbar region without myelopathy or radiculopathy 07/27/2021 Last Assessment & Plan: Pt reports chronic low back pain but this does not seem to be impacting her functional ability and she is walking her dog several times a day. No distress today. Using tylenol prn. She reports she discussed pain mgmt referral with pcp at last visit. She has not had appt. She made pcp appt for tomorrow to again discuss her pain concerns. She is aware [facility] does not manage chronic pain meds. With her history of confusion, would recommend against use of narcotic medication. Mild aortic stenosis 07/27/2021 Last Assessment & Plan: Following with cardiology Aortocoronary bypass status 03/09/2021 Chronic atrial fibrillation 03/01/2021 Overview: new onset, [facility] on apixaban Last Assessment & Plan: Her rate is controlled today. It was recommended while inpatient metoprolol could be increased to 50 mg daily-evidently her BP was elevated at that time as well. Patient reports prior to hospitalization she had not taken medication in over a week. Today her rate is controlled and systolic BP 118. We will continue metoprolol 25 mg daily. Continues apixaban stroke prophylaxis Greater trochanteric bursitis of right hip 11/03 History of gastric ulcer 11/02/2020 Aortic ectasia, thoracic 11/01/2020 Other idiopathic scoliosis, thoracolumbar region 11/01/2020 Bilateral shoulder region arthritis 04/16/2017 DDD (degenerative disc disease), lumbar 04/16/19 18 Last Assessment & Plan: Stable -CONSIDER D/CE OF RELAFEN (NSAID) with use of eliquis and known cardiac disease Acquired hypothyroidism 08/02/2015 Last Assessment & Plan: Continue synthroid Insomnia 11/04/2013 Last Assessment & Plan: Pt reporting remeron not helping. She admitted she got up and took 2 additional doses one evening when she could not sleep. Advised to NOT do this. She wonders why she cannot be on ambien. Discussed this med can cause AMS, falls and can be generally unsafe. Would not recommend it for her. She reports she tried melatonin. Willing to see sleep medicine for further eval. Low back pain radiating to left leg 03/19/2012 DYSLIPIDEMIA, GOAL LDL BELOW 100 01/28/2009 Overview: Per Lipid Taxonomy. Last Assessment & Plan: Due for updated labs. Continue rosuvastatin ADVANCE DIRECTIVE INFORMATION 07/13/2004 Overview: No, Advance Directive brochure given to patient. GENERAL OSTEOARTHROSIS 03/18/2004 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[place] co ronary artery of [place] heart without angina pectoris Last Assessment & Plan: Stable no angina -continue rosuvastatin, metopropolol, Anxiety state Last Assessment & Plan: Stable on buspar, Primary hypertension Gastroesophageal reflux dise ase with esophagitis without hemorrhage Last Assessment & Plan: symptoms controlled on pantoprazole Scoliosis of lumbar spine Mixed incontinence urge and stress (male)(female ) documented as of this encounter (statuses as of 01/25/2023) Resolved Problems Problem Noted Date Diagnosed Date Resolved Date Meningioma, cerebral 07/16/202208/02/ 023 Overview: small frontal cortex meningioma without mass effect Migraine without aura and wi thout status migrainosus, not intractable 03/31/2022 03/31/2022 Major depressive disorder wi th single episode, in partial remission 03/31/2022 07/27/2022 Chronic diastolic CHF (conge stive heart failure), NYHA class 1 03/31/2021 07/27/2021 Chronic narcotic dependence 11/10/2020 01/10/2022 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 11/01/2020 02/23/2021 Chronic kidney disease, stage 3b 08/03/2020 07/27/2021 Overview: Per CKD protocol Benign hypertension with sta ge 3b chronic kidney disease 06/29/2020 05/04/2022 Overview: Per CKD protocol Last Assessment & Plan: BP at goal at metoprolol Acquired hypothyroidism 01/19/201612/22 Gastric ulcer 06/30/2014 06/26/2017 Overview: hgb 7.4 [address] [facility] CKD (chronic kidney disease) stage 3, GFR 30-59 ml/min 07/03/2013 05/07/2014 Overview: GFR 36.9 Kidney disease, chronic, sta ge III (GFR 30-59 ml/min) 07/28/2007 06/01/2017 Anticoagulation management encounter 09/09/2002 02/25/2014 Retinal detachment of both e yes with multiple retinal tears 05/29/2002 05/16/2018 Dyslipidemia, goal to be determined 08/20/2000 01/28/2009 Overview: Per Lipid Taxonomy. Hypothyroidism 08/20/2000 01/19/2016 Adjustment disorder with depressed mood 03/13/2019 MEDICATION USE AGREEMENT Cataract cortical, senile Benign hypertension with CKD (chronic kidney disease) stage III 07/01/2020 Overview: Per CKD protocol Major depression, single episode 07/27/2022 Last Assessment & Plan: Denies depression. Stable Continue remeron documented as of this encounter (statuses as of 01/25/2023) Immunizations Name Administration Dates Next Due COVID-19 mRNA, LNP-s, No Pre serve, 2-Dose Series (Moderna) 04/04/2020,03/14/2020 Pneumococcal Conjugate Vacc, 13 Valent (Prevnar) 08/26/2014 Pneumococcal Polysaccharide PPV23 (Pneumovax) 10/26/2005 SEASONAL INFLUENZA, PF, 6 M & Above, IM , (FLULAVAL or FLUZONE) 03/13/2019,12/27/2017 Seasonal Influenza, Quadriva lent Hd (Fluzone Hd) 01/10/2022,11/18/2020 Seasonal Influenza, Quadriva lent Hd, 65+ Yrs 12/06/2019 Seasonal Influenza, Quadriva lent, No Preserve, IM 10/27/2016,11/03/2015,11/19/2014 Seasonal Influenza, Split, I IV3, With Preserve, Inj 11/04/2013,11/22/2012,01/09/2011(Defer red: Patient Refused),12/01/2005 Seasonal Influenza, Trivalen t, Adjuvanted, 65+ yrs 12/06/2019 Zoster Vaccine Recombinant (Shingrix) 12/04/2019 documented as of this encounter Social History Tobacco Use Types Packs/Day Years Used Date Smoking Tobacco: Never Smokeless Tobacco: Never Alcohol Use Standard Drinks/Week Comments Yes 0 (1 standard drink = 0.6 oz pur e alcohol) OCC-- 2oz per week PHQ-2 Answer Date Recorded PHQ-2 Score -1 11/09/2019 Hunger Vital Sign Answer Date Recorded Worried About Running Out of Food in the Last Ye ar Never true 06/16/2019 Ran Out of Food in the Last Year Never true 06/16/2019 Sex and Gender Information Value Date Recorded Sex Assigned at Female 12/11/2022 6:31 PM EDT Gender Identity Female 12/11/2022 6:31 PM EDT Sexual Orientation Bisexual 12/11/2022 6: 31 PM EDT Job Start Date Occupation Industry Not on file Not on file Not on file documented as of this encounter Last Filed Vital Signs Vital Sign Reading Time Taken Comments Blood Pressure 122/72 01/25/2023 4:15 PM EST Pulse 76 01/25/2023 4:15 PM EST Temperature 37 C (98.6 F) 01/25/2023 4:15 PM EST Respiratory Rate 18 01/25/2023 4:15 PM EST Oxygen Saturation 98% 01/25/2023 4:15 PM EST Inhaled Oxygen Concentration - - Weight - - Height - - Body Mass Index - - documented in this encounter Progress Notes * Lana Lieberman RN - 01/25/2023 3:55 PM EST Images from the original note were not included. [facility] Dioramist Visit Date: 01/25/2023 Time: 3:55 PM Name: Zoya Howard : 1938 Current Concerns: Patient seen for follow up- CHF, CKD, Osteoarthritis, Anxiety. Currently taking Bactrim DS for complaint of sore throat, congestion, occasional cough. Reports doing much better. Was able to get out today to have nails and pedicure today. Symptoms improving. VS wnl Lungs clear bilaterally Sob with exertion- baseline No LE edema noted Hasn't been weighing on scale- encouraged to weigh daily Voices understanding Voiding without difficulty Bowels wnl- per report Appetite good Taking fluids well. Problems/Symptoms: Review of Systems Constitutional: Negative. HENT: Negative. Eyes: Negative. Respiratory: Positive for cough and shortness of breath. Cardiovascular: Negative. Gastrointestinal: Negative. Endocrine: Negative. Genitourinary: Negative. Musculoskeletal: Positive for gait problem. Allergic/Immunologic: Negative. Hematological: Negative. Psychiatric/Behavioral: Negative. Physical Exam: BP 122/72 (BP Site: Right Arm, BP Position: Sitting, BP Cuff Size: Regular) | Pulse 76 | Temp 37 C (98.6 F) (Tympanic) | Resp 18 | SpO2 98% Pain 0 Physical Exam Constitutional: Appearance: Normal appearance. Cardiovascular: Rate and Rhythm: Normal rate and regular rhythm. Pulses: Normal pulses. Pulmonary: Effort: Pulmonary effort is normal. Breath sounds: Normal breath sounds. Abdominal: General: Bowel sounds are normal. Palpations: Abdomen is soft. Musculoskeletal: General: Normal range of motion. Skin: General: Skin is warm and dry. Capillary Refill: Capillary refill takes 2 to 3 seconds. Neurological: General: No focal deficit present. Mental Status: She is alert and oriented to person, place, and time. Psychiatric: Mood and Affect: Mood normal. Behavior: Behavior normal. [facility] Completed this Visit: No. No falls since last visit Treatment/Plan: Weigh daily- AMC scale Low na diet Elevate ble prn edema Continue medications as prescribed Keep all upcoming MD appointments Fall precautions Fluids encouraged RN CM follow up in 4 weeks Home Interventions Provided: Reinforced current Plan of Care, including self-management and medication regimen Patient Needs to Remember: Call [facility] with any medical concerns/ red flags Referrals Needed: N/a Follow Up: Is there cellular connectivity/connectivity in the home? Yes Does the patient have internet in the home? No Patient encouraged to call the intake phone number for all urgent but not emergent issues. Scheduled to follow up with patient in 4 weeks. Lana Schuler RN 01/25/2023 3:55 PM documented in this encounter Plan of Treatment Upcoming Encounters Date Type Department Care Team (Late st Contact Info) Description 01/29/2023 12:00 PM EST Office Visit [address] [phone] Con Coughlin MD [address] [place] [address] [place] [phone] 02/05/2023 12:20 PM EST Office Visit [address] [phone] Con Coughlin MD [address] [place] [address] [place] [phone] 02/26/2023 4:00 PM EST Home Visit [facility] [address] [place] [address] Lana Lieberman, KHARI 132 [facility] [place] [address] 04/13/2023 3:40 PM EST Office Visit [address] [phone] Marla Tan MD [address] [place] [address] [place] [id number] Health Maintenance Due Date Last Done Comments DTaP,Tdap,and Td Vaccines (1 - Tdap) 11/15/1957 Depression Screening 09/29/2020 09/30/2019 COVID-19 Vaccine ( - 2022-24 season) 2022 04/19/2020, 04/04/2020, 03/22/2020, Additional history exists Influenza Vaccine (FLU shot) (#1) 2022 01/10/2022, 11/18/2020, 12/06/2019, Additional history exists Albumin/Creatinine Ratio 07/28/2023 023, 06/09/2020, 03/13/2019, Additional history exists TSH 07/28/2023 07/27/2022, 05/21, 06/09/2020, Additional history exists CKD HGB USE SMARTSET 27502 10/05/202310/04, 10/04/2022, 07/06/2022, Additional history exists CKD PHOS USE SMARTSET 86236 10/05/202309/19, 06/08/2021, 09/07/2020, Additional history exists Pneumococcal Vaccine: 65+ Years Completed 08/26/2014, 10/26/2005 Zoster Vaccines Completed 11/23/2020, 12/04/2019 GARDASIL-HPV IMMUNIZATION SERIES Aged Out No longer eligible based on patient's age to complete this topic Hepatitis B Aged Out No longer eligi ble based on patient's age to complete this topic MENINGOCOCCAL (MENACTRA/MENVEO) Aged Out No longer eligible based on patient's age to complete this topic documented as of this encounter Medical Devices Not on filedocumented as of this encounter Care Teams Bench Worker Binding Relationship Specialty Start Date End Date Con Coughlin MD [address] [place] [address] [place] [phone] PCP - General Family Medicine 06/30/14 documented as of this encounter
--- OUTSIDE RECORDS SUMMARY | 2023-01-29 20:06 | External Medical Summary | Summary of Care ---
Author Name Unknown Organization [facility] Address [address] [place] [address] Phone [phone] Care Team Providers Care Junior Administrative Assistant Name Role Phone Con Coughlin MD Primary Care Provider [phone] Reason for Visit * Reason Comments [facility]: Maintenance Encounter Details Date Type Department Care Team (Late st Contact Info) Description 01/25/2023 5:30 PM EST Home Visit [facility], [facility] [address] [facility] [place] [address] Lnaa Lieberman, KHARI [address] [facility] [place] [address] Allergies Active Allergy Reactions Criticality Noted Date [...] discuss her pain concerns. She is aware [facility] does not manage chronic pain meds. With her history of confusion, would recommend against use of narcotic medication. Mild aortic stenosis 07/27/2021 Last Assessment & Plan: Following with cardiology Aortocoronary bypass status 03/09/2021 Chronic atrial fibrillation 03/01/2021 Overview: new onset, [facility] on apixaban Last Assessment & Plan: Her 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[place] co ronary artery of [place] heart without angina pectoris Last Assessment & [...] ulcer 06/30/2014 06/26/2017 Overview: hgb 7.4 admitted [facility] CKD (chronic kidney disease) stage 3, GFR [...] note were not included. [facility] Administrative Intern Visit Date: 01/25/2023 Time: 3:55 PM Name: [...] and Affect: Mood normal. Behavior: Behavior normal. [facility]-10 Completed this Visit: No. No falls since last visit Treatment/Plan: Weigh daily- AMC scale Low na diet Elevate ble prn edema Continue medications as prescribed Keep all upcoming MD appointments Fall precautions Fluids encouraged RN CM follow up in 4 weeks Home Interventions Provided: Reinforced current Plan of Care, including self-management and medication regimen Patient Needs to Remember: Call [facility] with any medical concerns/ red flags [...] Description 01/29/2023 12:00 PM EST Office Visit [address] [phone] Con Coughlin MD [address] [place] [address] [place] [phone] 02/05/2023 12:20 PM EST Office Visit [address] [phone] Con Coughlin MD [address] [place] [address] [place] [phone] 02/26/2023 4:00 PM EST Home Visit [facility] [address] [place] [address] Lana Lieberman, KHARI 132 [place] [address] 04/13/2023 3:40 PM EST Office Visit [address] [phone] Marla Tan MD [address] [place] [address] [place] [phone] Health Maintenance Due Date Last Done Comments [...] Additional history exists CKD HGB USE SMARTSET 10768 10/05/202310/04, 10/04/2022, 07/06/2022, Additional history exists CKD PHOS USE SMARTSET 78831 10/05/202309/19, 06/08/2021, 09/07/2020, Additional history exists Pneumococcal [...] filedocumented as of this encounter Care Teams Junior Administrative Assistant Relationship Specialty Start Date End Date Con Coughlin MD [address] [place] [address] [place] [phone] PCP - General Family Medicine 06/30/14 documented as of this encounter
[2023-01-29] MEDS: ONDANSETRON INJ 2 MG/ML 2 ML VIAL IV PRN (20:07)
--- OUTSIDE RECORDS SUMMARY | 2023-01-29 20:07 | External Medical Summary | Summary of Care ---
Author Name Unknown Organization [facility] Address [address] [place] [address] Phone [phone] Care Team Providers Care Train Control Technician Name Role Phone Con Coughlin MD Primary Care Provider Reason for Visit * Reason Onset Date Comments Medication Question 01/15/2023 Encounter Details Date Type Department Care Team (Late st Contact Info) Description 01/15/[address] [place] [address] Con Coughlin MD [address] [place] [address] [place] [address] Medication Question Allergies Active Allergy Reactions Criticality Noted Date Comments Ergotamine 03/01/2000 vomit Nitroglycerin 03/14/2007 vomitting documented as of this encounter (statuses as of 01/17/2023) Medications Medication Sig Dispensed Refills Start Date End Date Status Acetaminophen 500 MG Oral Tablet (Tylenol) Take 1 Tab by mouth 3 times a day. 100 Tab 0 11/12/2020 Active Eliquis 5 MG Oral Tablet Take 1 Tablet by mouth in the morning and 1 Tablet before bedtime. 0 08/25/2022 Active busPIRone HCl 10 MG Oral Tablet (Buspar)Indicatio ns:Anxiety state TAKE ONE TABLET BY MOUTH TWICE DAILY 60 Tablet 5 09/22/2022 Active Gabapentin 300 MG Oral Capsule (Neurontin)Indica tions:DDD (degenerative disc disease), lumbar Take 1 Capsule by mouth in the morning and 1 Capsule at noon and 1 Capsule before bedtime. 90 Capsule 5 10/10/2022 Active Loperamide HCl 2 MG Oral Tablet (Imodium A-D)Indications:C hronic diarrhea One tablet four times a day as needed 60 Tablet 1 11/07/2022 Active Levothyroxine Sodium 100 MCG Oral Tablet (Levoxyl) Take 1 Tablet by mouth in the morning. (at least 30 min prior to breakfast or other meds). 90 Tablet 3 11/20/2022 Active Rosuvastatin Calcium 10 MG Oral Tablet (Crestor)Indicati ons:Dyslipidemia, goal LDL below 100 Take 1 Tablet by mouth daily. 90 Tablet 0 11/20/2022 Active Pantoprazole Sodium 40 MG Oral Tablet Delayed Release (Protonix)Indicat ions:Gastric ulcer without hemorrhage or perforation, unspecified chronicity,Gastro esophageal reflux disease with esophagitis without hemorrhage Take 1 Tablet by mouth in the morning and 1 Tablet before bedtime. 180 Tablet 1 11/20/2022 Active DIURETIC TITRATION PLAN If no improvement on day 3, contact heart failure managing provider. 1 Each 0 12/15/2022 Active Calcitriol 0.25 MCG Oral Capsule (Rocaltrol) Take 1 Capsule by mouth in the morning. -W-- three days a week . 0 12/15/2022 Active Meloxicam 7.5 MG Oral Tablet (Mobic)Indication s:Bilateral shoulder region arthritis Take 1 Tablet by mouth in the morning. for pain.. 30 Tablet 5 12/18/2022 Active Amoxicillin 500 MG Oral Capsule (Amoxil)Indicatio ns:Acute maxillary sinusitis, recurrence not specified Take 1 Capsule by mouth in the morning and 1 Capsule at noon and 1 Capsule before bedtime. Do all this for 10 days. 30 Capsule 0 01/10/2023 3 Active Ondansetron HCl 4 MG Oral Tablet (Zofran)Indicatio ns:Nausea TAKE ONE TABLET BY MOUTH EVERY 6 HOURS NEEDED FOR NAUSEA 30 Tablet 1 01/15/2023 Active Benzonatate 100 MG Oral Capsule (Tessalon Perles)Indication s:Viral URI with cough Take 1 Capsule by mouth 3 times a day as needed for Cough. 30 Capsule 1 01/15/2023 Active traZODone HCl 150 MG Oral Tablet (Desyrel)Indicati ons:Persistent insomnia One at bedtime 30 Tablet 5 01/17/2023 Active traZODone HCl 100 MG Oral Tablet (Desyrel)Indicati ons:Persistent insomnia One at bedtime 30 Tablet 5 10/11/2022 3 Discontinue d(Refill) Metoprolol Succinate ER 50 MG Oral Tablet Extended Release 24 Hour (toPROL XL) Take 1 Tablet by mouth in the morning. 0 12/15/2022 3 Discontinue d(Refill) documented as of this encounter (statuses as of 01/17/2023) Active Problems Problem Noted Date Diagnosed Date [...] BMP Pro-BNP Her weights are stable on [facility]. She appears euvolemic today. Spondylosis of lumbar [...] discuss her pain concerns. She is aware [facility] does not manage chronic pain meds. With her history of confusion, would recommend against use of narcotic medication. 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[place] co ronary artery of [place] heart without angina pectoris Last Assessment & Plan: Stable no angina -continue rosuvastatin, metopropolol, Anxiety state Last Assessment & Plan: Stable on buspar, Primary hypertension Gastroesophageal reflux dise ase with esophagitis without hemorrhage Last Assessment & Plan: symptoms controlled on pantoprazole Scoliosis of lumbar spine Mixed incontinence urge and stress (male)(female ) documented as of this encounter (statuses as of 01/17/2023) Resolved Problems Problem Noted Date Diagnosed Date Resolved Date Meningioma, cerebral 07/16/2022 023 Overview: small frontal cortex meningioma without [...] ulcer 06/30/2014 06/26/2017 Overview: hgb 7.4 admitted [facility] CKD (chronic kidney disease) stage 3, GFR [...] as of this encounter (statuses as of 01/17/2023) Immunizations Name Administration Dates Next Due COVID-19 [...] on file documented as of this encounter Miscellaneous Notes * Telephone Encounter - Maylin Barfield RN - 01/17/2023 4:51 PM EST Pt notified * Telephone Encounter - Con Coughlin MD - 01/17/2023 11:39 AM EST I increased the trazodone to 150 mg. I am NOT going to give her a benzodiazepine. She wants one butwas really compromised on it. * Telephone Encounter - Rula Cosby CMA - 01/17/2023 11:21 AM EST I called ko and let message. Is her trazodone not helping? She may need an appointment but if something can be sent does she want it sent to [facility]? Dr Coughlin please advise. * Telephone Encounter - Yolie Smallwood CPhT - 01/15/2023 1:58 PM EST Pt requesting HIGH PRIORITY due to not sleeping in 3 nights. Pt calling with complaints of not sleeping for 3 nights and is requesting a sleep medication be prescribed. Pt did not want to schedule an appointment at this time. Call details was completed, pleaserefer to this for further information. Thank you, Yolie Smallwood CPhT Senior Instructional Designer II [facility] (Formerly [facility]) 01/15/2023,1:58 PM documented in this encounter Plan of Treatment Upcoming Encounters Date Type Department Care Team (Late st Contact Info) Description 01/22/2023 1:00 PM EST Office Visit Nephrology [address] [place] [address] June Jade MD [address] [place] [address] 01/25/2023 12:30 PM EST Home Visit [facility] [address] [place] [address] Lana Lieberman RN [address] [place] [address] 01/29/2023 12:00 PM EST Office Visit Family Medicine [address] [place] [phone] Con Coughlin MD [address] [place] [address] [place] [address] 02/05/2023 12:20 PM EST Office Visit [address] [phone] Con Coughlin MD [address] [place] [address] [place] [address] 04/13/2023 3:40 PM EST Office Visit [address] [phone] Marla Tan MD [address] [place] [address] [place] [address] Health Maintenance Due Date Last Done Comments DTaP,Tdap,and Td Vaccines (1 - Tdap) 11/15/1957 Depression Screening 09/29/2020 09/30/2019 COVID-19 Vaccine (5 - 2022-24 season) 2022 04/19/2020, 04/04/2020, 03/22/2020, Additional history exists Influenza Vaccine (FLU shot) (#1) 2022 01/10/2022, 11/18/2020, 12/06/2019, Additional history exists Albumin/Creatinine Ratio 07/28/2023 023, 06/09/2020, 03/13/2019, Additional history exists TSH 07/28/2023 07/27/2022, 05/21, 06/09/2020, Additional history exists CKD HGB USE SMARTSET 40289 10/05/202310/04, 10/04/2022, 07/06/2022, Additional history exists CKD PHOS USE SMARTSET 79216 10/05/202309/19, 06/08/2021, 09/07/2020, Additional history exists Pneumococcal [...] Not on filedocumented as of this encounter Visit Diagnoses Diagnosis Persistent insomnia Persistent disorder of initiating or maintaining sleep documented in this encounter Care Teams Train Control Technician Relationship Specialty Start Date End Date Con Coughlin MD [address] [place] [address] [place] [address] PCP - General Family Medicine 06/30/14 documented as of this encounter
--- OUTSIDE RECORDS SUMMARY | 2023-01-29 20:07 | External Medical Summary | Summary of Care ---
Author Name Unknown Organization [facility] Address [address] [place] [address] Phone [phone] Care Team Providers Care Pediatrics Hospitalist Name Role Phone Con Coughlin MD Primary Care Provider [phone] Reason for Visit * Reason Onset Date Comments [facility]: Maintenance 01/19/2023 Encounter Details Date Type Department Care Team (Late st Contact Info) Description 01/19/2023 Telephone [facility], [address] [address] [facility] Nurse [address] [address] [facility]: Maintenance Allergies Active Allergy Reactions Criticality Noted Date Comments Ergotamine 03/01/2000 vomit Nitroglycerin 03/14/2007 vomitting documented as of this encounter (statuses as of 01/19/2023) Medications Medication Sig Dispensed Refills Start Date [...] 12/18/2022 Active Amoxicillin 500 MG Oral Capsule (Amoxil)Indication s:Acute maxillary sinusitis, recurrence not specified Take 1 Capsule by mouth in the morning and 1 Capsule at noon and 1 Capsule before bedtime. Do all this for 10 days. 30 Capsule 0 01/10/2023 01/20/2023 Active Ondansetron HCl 4 MG Oral Tablet [...] at bedtime 30 Tablet 5 01/17/2023 Active documented as of this encounter (statuses as of 01/19/2023) Active Problems Problem Noted Date Diagnosed Date [...] BMP Pro-BNP Her weights are stable on [facility]. She appears euvolemic today. Spondylosis of lumbar [...] her pain concerns. She is aware [facility] does not manage chronic pain meds. With her history of confusion, would recommend against use of narcotic medication. 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[place] co ronary artery of [place] heart without angina pectoris Last Assessment & Plan: Stable no angina -continue rosuvastatin, metopropolol, Anxiety state Last Assessment & Plan: Stable on buspar, Primary hypertension Gastroesophageal reflux dise ase with esophagitis without hemorrhage Last Assessment & Plan: symptoms controlled on pantoprazole Scoliosis of lumbar spine Mixed incontinence urge and stress (male)(female ) documented as of this encounter (statuses as of 01/19/2023) Resolved Problems Problem Noted Date Diagnosed Date [...] ulcer 06/30/2014 06/26/2017 Overview: hgb 7.4 admitted [facility] CKD (chronic kidney disease) stage [...] as of this encounter (statuses as of 01/19/2023) Immunizations Name Administration Dates Next Due COVID-19 [...] encounter Miscellaneous Notes * Telephone Encounter - Shelby Arroyo LPN - 01/19/2023 11:20 AM EST Images from the original note were not included. [facility] Remote Patient Monitoring Unable to contact patient: Trigger type: Abnormal reading(s): Device(s) Triggered: AMC (Advanced Monitored Caregiving): Scale: Trigger weight: 160.6 lbs; weight increased 3.4 lbs in 2 day(s) Plan: Follow up call scheduled Route to RNCM (Registered Nurse Human Services Care Specialist) in care team Left message to return call documented in this encounter Plan of Treatment Upcoming Encounters Date Type Department Care Team (Late st Contact Info) Description 01/20/2023 2:00 PM EST Scheduled Telephone [facility], [facility] [address] [facility] [place] [address] [facility] [address] [facility] [place] [address] 01/22/2023 1:00 PM EST Office Visit Nephrology [address] [place] [address] June Jade MD [address] [place] [address], [place] [address] 01/25/2023 12:30 PM EST Home Visit [facility], [facility] 132 [facility] [place] [address] Lana Lieberman RN [address] [place] [address] 01/29/2023 12:00 PM EST Office Visit Family Medicine [address] [phone] Con Coughlin MD [address] [place] [address] [place] [address] 02/05/2023 12:20 PM EST Office Visit [address] [phone] Con Coughlin MD [address] [place] [address] [place] [address] 04/13/2023 3:40 PM EST Office Visit Family [address] [phone] Marla Tan MD [address] [place] [address] [place] [address] Health Maintenance Due Date Last Done Comments DTaP,Tdap,and Td Vaccines (1 - Tdap) 11/15/1957 Depression Screening 09/29/2020 09/30/2019 COVID-19 Vaccine ( season) 2022 04/19/2020, 04/04/2020, 03/22/2020, Additional history exists Influenza Vaccine (FLU shot) (#1) 2022 01/10/2022, 11/18/2020, 12/06/2019, Additional history exists Albumin/Creatinine Ratio 07/28/2023 023, 06/09/2020, 03/13/2019, Additional history exists TSH 07/28/2023 07/27/2022, 05/21, 06/09/2020, Additional history exists CKD HGB USE SMARTSET 56347 10/05/202310/04, 10/04/2022, 07/06/2022, Additional history exists CKD PHOS USE SMARTSET 86416 10/05/202309/19, 06/08/2021, 09/07/2020, Additional history exists Pneumococcal [...] filedocumented as of this encounter Care Teams Pediatrics Hospitalist Relationship Specialty Start Date End Date Con Coughlin MD [address] [place] [address] [place] [address] PCP - General Family Medicine 06/30/14 documented as of this encounter
--- OUTSIDE RECORDS SUMMARY | 2023-01-29 20:07 | External Medical Summary | Summary of Care ---
Author Name Unknown Organization [facility] Address [address] [place] [address] Phone [phone] Care Team Providers Care 3Rd Grade Teacher Name Role Phone Con Coughlin MD Primary Care Provider Reason for Visit * Reason Onset Date Comments Medication Refill 01/16/2023 Encounter Details Date Type Department Care Team (Late st Contact Info) Description 01/16/2023 Refill Family [address] [place] [phone] Con Coughlin MD [address] [place], [place] [address] [address] Allergies Active Allergy Reactions Criticality Noted Date Comments Ergotamine 03/01/2000 vomit Nitroglycerin 03/14/2007 vomitting documented as of this encounter (statuses as of 01/16/2023) Medications Medication Sig Dispensed Refills Start Date [...] before bedtime. 90 Capsule 5 10/10/2022 Active traZODone HCl 100 MG Oral Tablet (Desyrel)Indicatio ns:Persistent insomnia One at bedtime 30 Tablet 5 10/11/2022 Active Loperamide HCl 2 MG Oral Tablet [...] managing provider. 1 Each 0 12/15/2022 Active Metoprolol Succinate ER 50 MG Oral Tablet Extended Release 24 Hour (toPROL XL) Take 1 Tablet by mouth in the morning. 0 12/15/2022 Active Calcitriol 0.25 MCG Oral [...] for Cough. 30 Capsule 1 01/15/2023 Active documented as of this encounter (statuses as of 01/16/2023) Active Problems Problem Noted Date Diagnosed Date [...] discuss her pain concerns. She is aware [facility] does not manage chronic pain meds. With her history of confusion, would recommend against use of narcotic medication. Mild aortic stenosis 07/27/2021 Last Assessment & Plan: Following with cardiology Aortocoronary bypass status 03/09/2021 Chronic atrial fibrillation 03/01/2021 Overview: new onset, [facility] on apixaban Last Assessment & Plan: Her 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[place] co ronary artery of [place] heart without angina pectoris Last Assessment & Plan: Stable no angina -continue rosuvastatin, metopropolol, Anxiety state Last Assessment & Plan: Stable on buspar, Primary hypertension Gastroesophageal reflux dise ase with esophagitis without hemorrhage Last Assessment & Plan: symptoms controlled on pantoprazole Scoliosis of lumbar spine Mixed incontinence urge and stress (male)(female ) documented as of this encounter (statuses as of 01/16/2023) Resolved Problems Problem Noted Date Diagnosed Date [...] ulcer 06/30/2014 06/26/2017 Overview: hgb 7.4 admitted [facility] CKD (chronic kidney disease) stage 3, GFR [...] as of this encounter (statuses as of 01/16/2023) Immunizations Name Administration Dates Next Due COVID-19 [...] encounter Miscellaneous Notes * Telephone Encounter - Mee Tee LPN - 01/16/2023 11:50 AM EST 2nd refill request * Telephone Encounter - Chhaay Motley OSA - 01/16/2023 9:10 AM EST Did you pend patient's preferred pharmacy and medication before forwarding?yes Pharmacy: [facility], [address] [place] Pending Prescriptions: Disp Refills Metoprolol Succinate ER 50 MG Oral Tablet* Sig: Take 1 Tablet by mouth in the morning. Last Visit: 12/18/2022 (in office), 01/10/2023 (telemedicine) Next Visit: 01/29/2023 If no future appointments scheduled, and last appointment is greater than a year ago, please schedule patient for a follow-up appointment Last date the medication was ordered: 12.15.22 Is this request for a controlled substance?No Urine Drug Screen: Results for orders placed or performed in visit on 08/17/20 TOXICOLOGY, URINE SCREEN Result Value Amphetamine Negative Benzodiazepines Negative Cannabinoids Negative Cocaine Metabolite Negative Hydrocodone / Hydromorphone Positive (A) Methadone Metabolite Negative Morphine / Codeine Positive (A) Oxycodone / Oxymorphone Negative Narrative Cutoff Concentrations: Drug Level Amphetamines 500 ng/mL Benzodiazepines 100 ng/mL Cannabinoids 50 ng/mL Cocaine Metabolite 150 ng/mL Hydrocodone / Hydromorphone 100 ng/mL Methadone Metabolite 100 ng/mL Morphine / Codeine 300 ng/mL Oxycodone / Oxymorphone 100 ng/mL Screening results are presumptive and can only be used for medical purposes. Confirmatory testing is available upon request. Results for orders placed or performed in visit on 06/16/19 OPIOIDS/BENZO COMPLIANCE MONITORING TEST Result Value URINE DRUG SCREEN RESULT Amphetamine NEGATIVE Benzodiazepines NEGATIVE Cannabinoids NEGATIVE Cocaine Metabolite NEGATIVE HYDROCODONE REFER TO CONFIRMATION RESULT (A) METHADONE METABOLITE NEGATIVE Morphine / Codeine REFER TO CONFIRMATION RESULT (A) OXYCODONE REFER TO CONFIRMATION RESULT (A) COMMENT THE ABOVE SCREENING RESULTS ARE PRESUMPTIVE AND CAN ONLY BE USED FOR MEDICAL PURPOSES. CONFIRMATORY TESTING IS AVAILABLE UPON REQUEST. Cutoff Concentration URINE VALID INTERP NORMAL CREATININE KEVYN 64 Results for orders placed or performed in visit on 05/16/18 TOX SCREEN, URINE, W/ CONFIRMATION Result Value Amphetamine NEGATIVE Barbiturates NEGATIVE Benzodiazepines NEGATIVE Cannabinoids NEGATIVE Cocaine Metabolite NEGATIVE Morphine / Codeine NEGATIVE METHADONE METABOLITE NEGATIVE OXYCODONE NEGATIVE TOX COMMENT THE ABOVE SCREENING RESULTS ARE PRESUMPTIVE AND CAN ONLY BE USED FOR MEDICAL PURPOSES. POSITIVE RESULTS REFLEX TO CONFIRMATORY TESTING. Cutoff Concentration *Note: Due to a large number of results and/or encounters for the requested time period, some results have not been displayed. A complete set of results can be found in Results Review. Patient Phone Numbers Labs: Lab Results Component Value Date/Time CREAT 1.5 (H) 10/04/2022 11:59 AM CREAT 1.08 05/09/2021 12:00 AM CREAT 1.4 (H) 06/16/2019 10:39 AM POTASSIUM 3.6 10/04/2022 11:59 AM POTASSIUM 4.5 05/09/2021 12:00 AM POTASSIUM 5.1 06/16/2019 10:39 AM TSH 0.34 07/27/2022 11:42 AM TSH 0.77 06/16/2019 10:39 AM TSH 1.45 02/04/1996 09:00 AM LDLCALC 73 06/09/2020 10:47 AM LDLCALC 82 08/02/2015 02:56 PM LDLDIRECT NOT APPLICABLE 08/02/2015 02:56 PM LDLDIRECT 89 02/22/2012 02:40 PM ALT 15 07/06/2022 01:39 PM ALT 26 06/16/2019 10:39 AM HGBA1C 5.7 (A) 01/25/2018 12:00 AM HGBA1C 5.2 11/04/2013 12:09 PM documented in this encounter Plan of Treatment Upcoming Encounters Date Type Department Care Team (Late st Contact Info) Description 01/22/2023 1:00 PM EST Office Visit Nephrology [address] [place] [address] June Jade MD [address] [place] [address] 01/25/2023 12:30 PM EST Home Visit [facility] [address] [facility] [place] [place] [address] Lana Lieberman RN 132 [facility] [place] [address] 01/29/2023 12:00 PM EST Office Visit Family Medicine [address] [place] [phone] Con Coughlin MD [address] [place] [address] [place] [address] 02/05/2023 12:20 PM EST Office Visit Family Medicine [address] [place] [phone] Con Coughlin MD [address] [place] [address] [place] [address] 04/13/2023 3:40 PM EST Office Visit Family Medicine [address] [place] [phone] Marla Tan MD [address] [place] [address] [place] [phone] Health Maintenance Due Date Last Done Comments [...] Additional history exists CKD HGB USE SMARTSET 69177 10/05/202310/04, 10/04/2022, 07/06/2022, Additional history exists CKD PHOS USE SMARTSET 21902 10/05/202309/19, 06/08/2021, 09/07/2020, Additional history exists Pneumococcal [...] filedocumented as of this encounter Care Teams 3Rd Grade Teacher Relationship Specialty Start Date End Date Con Coughlin MD [address] [place] [address] [place] [phone] PCP - General Family Medicine 06/30/14 documented as of this encounter
--- OUTSIDE RECORDS SUMMARY | 2023-01-29 20:07 | External Medical Summary | Summary of Care ---
Author Name Unknown Organization [facility] Address [address] [place] [address] Phone [phone] Care Team Providers Care Stock Repairer Name Role Phone Con Coughlin MD Primary Care Provider [phone] Reason for Visit * Reason Onset Date Comments [facility]: Maintenance 01/21/2023 Encounter Details Date Type Department Care Team (Late st Contact Info) Description 01/21/2023 9:30 AM EST Scheduled Telephone [facility] [place], [facility] [address] [place] [address] [facility], Nurse [facility] [address] [place] [address] Allergies Active Allergy Reactions Criticality Noted Date Comments Ergotamine 03/01/2000 vomit Nitroglycerin 03/14/2007 vomitting documented as of this encounter (statuses as of 01/21/2023) Medications Medication Sig Dispensed Refills Start Date End Date Status Acetaminophen 500 MG Oral Tablet (Tylenol) Take 1 Tab by mouth 3 times a day. 100 Tab 0 11/12/2020 Active Eliquis 5 MG Oral Tablet Take 1 Tablet by mouth in the morning and 1 Tablet before bedtime. 0 08/25/2022 Active busPIRone HCl 10 MG Oral Tablet (Buspar)Indications :Anxiety state TAKE ONE TABLET BY MOUTH TWICE DAILY 60 Tablet 5 09/22/2022 Active Gabapentin 300 MG Oral Capsule (Neurontin)Indicati ons:DDD (degenerative disc disease), lumbar Take 1 Capsule by mouth in the morning and 1 Capsule at noon and 1 Capsule before bedtime. 90 Capsule 5 10/10/2022 Active Loperamide HCl 2 MG Oral Tablet (Imodium A-D)Indications:Chr onic diarrhea One tablet four times a day as needed 60 Tablet 1 11/07/2022 Active Levothyroxine Sodium 100 MCG Oral Tablet (Levoxyl) Take 1 Tablet by mouth in the morning. (at least 30 min prior to breakfast or other meds). 90 Tablet 3 11/20/2022 Active Rosuvastatin Calcium 10 MG Oral Tablet (Crestor)Indication s:Dyslipidemia, goal LDL below 100 Take 1 Tablet by mouth daily. 90 Tablet 0 11/20/2022 Active Pantoprazole Sodium 40 MG Oral Tablet Delayed Release (Protonix)Indicatio ns:Gastric ulcer without hemorrhage or perforation, unspecified chronicity,Gastroes ophageal reflux disease with esophagitis without hemorrhage Take [...] 12/15/2022 Active Meloxicam 7.5 MG Oral Tablet (Mobic)Indications: Bilateral shoulder region arthritis Take 1 Tablet by mouth in the morning. for pain.. 30 Tablet 5 12/18/2022 Active Ondansetron HCl 4 MG Oral Tablet (Zofran)Indications :Nausea TAKE ONE TABLET BY MOUTH EVERY 6 HOURS NEEDED FOR NAUSEA 30 Tablet 1 01/15/2023 Active Benzonatate 100 MG Oral Capsule (Tessalon Perles)Indications: Viral URI with cough Take 1 Capsule by mouth 3 times a day as needed for Cough. 30 Capsule 1 01/15/2023 Active Metoprolol Succinate ER 50 MG Oral Tablet Extended Release 24 Hour (toPROL XL) Take 1 Tablet by mouth in the morning. 90 Tablet 1 01/16/2023 Active traZODone HCl 150 MG Oral Tablet (Desyrel)Indication s:Persistent insomnia One at bedtime 30 Tablet 5 01/17/2023 Active documented as of this encounter (statuses as of 01/21/2023) Active Problems Problem Noted Date Diagnosed Date Hypercalcemia 12/15/2022 Last Assessment & Plan: No longer on supplementation. Follow up with nephrology (HFpEF) heart failure with preserved ejection fr action 12/07/2022 Overview: Ca 11.6 Hiatal hernia 12/07/2022 Overview: moderate Current moderate episode of major depressive disorder without prior episode 04/07/2022 Food insecurity 08/01/2021 Overview: Per [facility] Protocol Hypertensive heart and kidne [...] BMP Pro-BNP Her weights are stable on [facility]. She appears euvolemic today. Spondylosis of lumbar [...] discuss her pain concerns. She is aware [facility] does not manage chronic pain meds. With her history of confusion, would recommend against use of narcotic medication. Mild aortic stenosis 07/27/2021 Last Assessment & Plan: Following with cardiology Aortocoronary bypass status 03/09/2021 Chronic atrial fibrillation 03/01/2021 Overview: new onset, [facility] on apixaban Last Assessment & Plan: Her 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[place] co ronary artery of [place] heart without angina pectoris Last Assessment & Plan: Stable no angina -continue rosuvastatin, metopropolol, Anxiety state Last Assessment & Plan: Stable on buspar, Primary hypertension Gastroesophageal reflux dise ase with esophagitis without hemorrhage Last Assessment & Plan: symptoms controlled on pantoprazole Scoliosis of lumbar spine Mixed incontinence urge and stress (male)(female ) documented as of this encounter (statuses as of 01/21/2023) Resolved Problems Problem Noted Date Diagnosed Date [...] ulcer 06/30/2014 06/26/2017 Overview: hgb 7.4 admitted [facility] CKD (chronic kidney disease) stage 3, GFR [...] as of this encounter (statuses as of 01/21/2023) Immunizations Name Administration Dates Next Due COVID-19 [...] encounter Miscellaneous Notes * Telephone Encounter - Deana Mobley RN - 01/21/2023 9:55 AM EST Telephone call to pt to follow up on wt gain Went from 157.2 lbs to 160.6 lbs on Sunday Did not do weight yesterday - had forgot and already dressed and eaten so would not be accurate Spoke with pt today Had her do wt during call Wt was 159.4 lbs She reports she is feeling well today She does report that she is very tired all of the time She does have BROUSSARD but does not feel it is worse She usually sees Dr. Adams but does not have an appt soon - she is going to call this week to getan appt made. Denies any other concerns at this time. Has military source operations officer appt tomorrow and RNCM appt this week on 01/25. Advised to call [facility] with any red flags or concerns documented in this encounter Plan of Treatment Upcoming Encounters Date Type Department Care Team (Late st Contact Info) Description 01/22/2023 1:00 PM EST Office Visit Nephrology [address] [place] [address] June Jade MD 200 [place] [address] 01/25/2023 12:30 PM EST [facility], [facility] [address] [facility] [place] [address] Lana Lieberman, KHARI [address] [place] [address] 01/29/2023 12:00 PM EST Office Visit Family [address] [phone] Con Coughlin MD [address] [place] [address] [place] [address] 02/05/2023 12:20 PM EST Office Visit [address] [phone] Con Coughlin MD [address] [place] [address] [place] [address] 04/13/2023 3:40 PM EST Office Visit [address] [phone] Marla Tan MD [address] [place] [address] [place] [address] Health Maintenance Due Date Last Done Comments [...] Additional history exists CKD HGB USE SMARTSET 77228 10/05/202310/04, 10/04/2022, 07/06/2022, Additional history exists CKD PHOS USE SMARTSET 42544 10/05/202309/19, 06/08/2021, 09/07/2020, Additional history exists Pneumococcal [...] filedocumented as of this encounter Care Teams Stock Repairer Relationship Specialty Start Date End Date Con Coughlin MD [address] [place] [address] [place] [address] PCP - General Family Medicine 06/30/14 documented as of this encounter
--- OUTSIDE RECORDS SUMMARY | 2023-01-29 20:07 | External Medical Summary | Summary of Care ---
Author Name Unknown Organization [facility] Address [address] [place] [address] Phone [phone] Care Team Providers Care Home Appraiser Name Role Phone Con Coughlin MD Primary Care Provider Reason for Visit * Reason Onset Date Comments Advice 01/17/2023 Encounter Details Date Type Department Care Team (Late st Contact Info) Description 01/17/[address] [place] [phone] Con Coughlin MD [address] [place] [address] [place] [phone] Advice Allergies Active Allergy Reactions Criticality Noted Date [...] discuss her pain concerns. She is aware [facility] does not manage chronic pain meds. With her history of confusion, would recommend against use of narcotic medication. Mild aortic stenosis 07/27/2021 Last Assessment & Plan: Following with cardiology Aortocoronary bypass status 03/09/2021 Chronic atrial fibrillation 03/01/2021 Overview: new onset, [facility] on apixaban Last Assessment & Plan: 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[place] co ronary artery of [place] heart without angina pectoris Last Assessment & [...] ulcer 06/30/2014 06/26/2017 Overview: hgb 7.4 admitted [facility] CKD (chronic kidney disease) stage 3, [...] encounter Miscellaneous Notes * Telephone Encounter - Flor Gilmore LPN - 01/17/2023 3:20 PM EST Orders faxed. * Telephone Encounter - Tori Jaramillo OSA - 01/17/2023 2:54 PM EST Prudence from home health called & will be faxing over the plan of care approval, please have sign & date & fax back to [phone] documented in this encounter Plan of Treatment Upcoming Encounters Date Type Department Care Team (Late st Contact Info) Description 01/22/2023 1:00 PM EST Office Visit Nephrology [address] [place] [address] June Jade MD 200 [facility] [place] [address] 01/25/2023 12:30 PM EST Home Visit [facility], [facility] 132 [facility] [place] [address] Lana Lieberman RN [facility] [place] [address] 01/29/2023 12:00 PM EST Office Visit [address] [phone] Con Coughlin MD [address] [place] [address] [place] [address] 02/05/2023 12:20 PM EST Office Visit [address] [phone] Con Coughlin MD [address] [place] [address] [place] [address] 04/13/2023 3:40 PM EST Office Visit [address] [phone] Marla Tan MD [address] [place] [address] [place] [address] Health Maintenance Due Date Last Done Comments [...] Additional history exists CKD HGB USE SMARTSET 00424 10/05/202310/04, 10/04/2022, 07/06/2022, Additional history exists CKD PHOS USE SMARTSET 67352 10/05/202309/19, 06/08/2021, 09/07/2020, Additional history exists Pneumococcal [...] filedocumented as of this encounter Care Teams Home Appraiser Relationship Specialty Start Date End Date Con Coughlin MD [address] [place] [address] [place] [phone] PCP - General Family Medicine 06/30/14 documented as of this encounter
--- OUTSIDE RECORDS SUMMARY | 2023-01-29 20:07 | External Medical Summary | Summary of Care ---
Author Name Unknown Organization [facility] Address [address] [place] [address] Phone [phone] Care Team Providers Care Director Of Occupational Therapy Name Role Phone Con Coughlin MD Primary Care Provider Reason for Visit * Reason Onset Date Comments [facility]: Maintenance 01/20/2023 Encounter Details Date Type Department Care Team (Late st Contact Info) Description 01/20/2023 2:00 PM EST Scheduled Telephone [facility] [place], [facility] [address] [place] [address] [facility], Nurse [facility] [address] [place] [address] Allergies Active Allergy Reactions Criticality Noted Date Comments Ergotamine 03/01/2000 vomit Nitroglycerin 03/14/2007 vomitting documented as of this encounter (statuses as of 01/20/2023) Medications Medication Sig Dispensed Refills Start Date [...] as of this encounter (statuses as of 01/20/2023) Active Problems Problem Noted Date Diagnosed Date [...] discuss her pain concerns. She is aware [facility] does not manage chronic pain meds. With her history of confusion, would recommend against use of narcotic medication. Mild aortic stenosis 07/27/2021 Last Assessment & Plan: Following with cardiology Aortocoronary bypass status 03/09/2021 Chronic atrial fibrillation 03/01/2021 Overview: new onset, [facility] on apixaban Last Assessment & Plan: 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[place] co ronary artery of [place] heart without angina pectoris Last Assessment & Plan: Stable no angina -continue rosuvastatin, metopropolol, Anxiety state Last Assessment & Plan: Stable on buspar, Primary hypertension Gastroesophageal reflux dise ase with esophagitis without hemorrhage Last Assessment & Plan: symptoms controlled on pantoprazole Scoliosis of lumbar spine Mixed incontinence urge and stress (male)(female ) documented as of this encounter (statuses as of 01/20/2023) Resolved Problems Problem Noted Date Diagnosed Date [...] BP at goal at metoprolol Acquired hypothyroidism 01/19/2016 11 Gastric ulcer 06/30/2014 06/26/2017 Overview: hgb 7.4 admitted [facility] CKD (chronic kidney disease) stage 3, [...] as of this encounter (statuses as of 01/20/2023) Immunizations Name Administration Dates Next Due COVID-19 [...] encounter Miscellaneous Notes * Telephone Encounter - Jinny Mena RN - 01/20/2023 10:59 AM EST Images from the original note were not included. [facility] Telephonic Nurse Follow-Up Call [facility] Subprogram: Short-Term Management (less than 3 months) Follow Up Call Type: Weekend Call Acute issue requiring follow-up call: Other: weight increase Objective: 12/28/2022 1:48 PM 12/18/2022 11:27 AM 12/15/2022 12:28 PM 11/29/2022 11:14 AM 11/01/2022 11:42 AM VITALS ACROSS ENCOUNTERS BP 124/68 138/76 118/62 142/78 132/76 Pulse 82 69 98 72 80 Weight 75.9 kg 72.1 kg 74.6 kg BMI 31.61 kg/m2 30.04 kg/m2 31.06 kg/m2 No results found for: "BLOOD", "PROTEIN", "ESTERASE", "WBC", "NITRITE", "QUANT URINE CULTURE GROWTH", "BLOOD,", "PROTEIN,", "ESTERASE,", "WBC,", "NITRITE, URINE - [facility]" No results found for: "WBC AUTO - [facility]", "HGB - [facility]", "PLATELET AUTO - [facility]" No results found for: "SODIUM - [facility]", "POTASSIUM - [facility]", "MAGNESIUM - [facility]", "CO2 - [facility]", "CREATININE - [facility]", "ESTIMATED GLOMERULAR FILTRATION RATE - [facility]", "ALBUMIN- [facility]", "AST - [facility]", "ALT - [facility]", "ALKALINE PHOSPHATASE - [facility]" No results found for: "PRO BNP", "LEFT VENTRICULAR EJECTION FRACTION" Remote Patient Monitoring: [facility] Scale: Oxygen Needs: NO supplemental oxygen needs identified DME Needs: NO DME needs identified Medications: No medication or dose adjustments made during acute episode Subjective: Condition Status: No change in symptoms Current Concerns: Phone call to Lavinia, states she has not weighed herself this morning and has already eaten breakfast, will weigh self tomorrow. Denies SOB, - cough/congestion, - fever/chills, has a left ankle that is slightly swollen but admits it is chronic, complains of some fatigue. Reports only taking Torsemide 20 mg prn, last time was earlier this past week. Will place for a follow up call tomorrow Disposition: Follow up call scheduled for tomorrow with DIESEL MOTOR MECHANIC Sustainable Agriculture Specialist Future Visits Scheduled: Future Appointments-next 60 days Date/Time Provider Specialty Dept Phone 01/20/2023 2:00 PM [facility], Nurse [facility] [phone] 01/22/2023 1:00 PM (Arrive by 12:45 PM) June Jade MD Nephrology [phone] 01/25/2023 12:30 PM Lana Lieberman RN [facility] [phone] 01/29/2023 12:00 PM (Arrive by 11:45 AM) Con Coughlin MD Family Medicine [phone] 02/05/2023 12:20 PM (Arrive by 12:05 PM) Con Coughlin MD Family Medicine [phone] 04/13/2023 3:40 PM (Arrive by 3:25 PM) Marla Tan MD Family Medicine [phone] Jinny Mena, RN documented in this encounter Plan of Treatment Upcoming Encounters Date Type Department Care Team (Late st Contact Info) Description 01/21/2023 9:30 AM EST Scheduled Telephone [facility], [facility] [address] [place] [address] [facility], Nurse [facility] [address] [place] [address] 01/22/2023 1:00 PM EST Office Visit Nephrology [address] [place] [address] June Jade MD [address] [place] [address] 01/25/2023 12:30 PM EST [facility] Visit [facility], [facility] [address] [facility] [address] Lana Lieberman RN 132 [place] [address] 01/29/2023 12:00 PM EST Office Visit Family Medicine [address] [place] [phone] Con Coughlin MD [address] [place] [address] [place] [address] 02/05/2023 12:20 PM EST Office Visit Family Medicine [address] [place] [phone] Con Coughlin MD [address] [place] [address] [place] [address] 04/13/2023 3:40 PM EST Office Visit Family Medicine [address] [place] [phone] Marla Tan MD [address] [place] [address] [place] [address] Health Maintenance Due Date Last Done Comments [...] Additional history exists CKD HGB USE SMARTSET 73758 10/05/202310/04, 10/04/2022, 07/06/2022, Additional history exists CKD PHOS USE SMARTSET 18474 10/05/202309/19, 06/08/2021, 09/07/2020, Additional history exists Pneumococcal [...] filedocumented as of this encounter Care Teams Director Of Occupational Therapy Relationship Specialty Start Date End Date Con Coughlin MD [address] [place] [address] [place] [phone] PCP - General Family Medicine 06/30/14 documented as of this encounter
--- OUTSIDE RECORDS SUMMARY | 2023-01-29 20:08 | External Medical Summary | Summary of Care ---
Author Name Unknown Organization [facility] Address [address] [place] [address] Phone [phone] Care Team Providers Care Backup Sawyer Name Role Phone Con Coughlin MD Primary Care Provider [phone] Reason for Visit * Reason Comments eRx-Medication Refill Encounter Details Date Type Department Care Team (Late st Contact Info) Description 01/09/2023 Refill Family [address] [place] [phone] Delmer Valles MD [address] [place] [address] [place] [address] Allergies Active Allergy Reactions Criticality Noted Date Comments Ergotamine 03/01/2000 vomit Nitroglycerin 03/14/2007 vomitting documented as of this encounter (statuses as of 01/10/2023) Medications Medication Sig Dispensed Refills Start Date [...] Active traZODone HCl 100 MG Oral Tablet (Desyrel)Indication s:Persistent insomnia One at bedtime 30 Tablet 5 10/11/2022 Active Loperamide HCl 2 MG Oral Tablet (Imodium A-D)Indications:Chr onic diarrhea One tablet four times a day as needed 60 Tablet 1 11/07/2022 Active Ondansetron HCl 4 MG Oral Tablet (Zofran)Indications :Nausea TAKE ONE TABLET BY MOUTH EVERY 6 HOURS NEEDED FOR nausea 30 Tablet 1 11/21/2022 Active Levothyroxine Sodium 100 MCG Oral Tablet [...] for pain.. 30 Tablet 5 12/18/2022 Active Benzonatate 100 MG Oral CapsuleIndications: Viral URI with cough Take 1 Capsule by mouth 3 times a day as needed for Cough. 30 Capsule 1 12/25/2022 Active documented as of this encounter (statuses as of 01/10/2023) Active Problems Problem Noted Date Diagnosed Date Hypercalcemia 12/15/2022 Last Assessment & Plan: No longer on supplementation. Follow up with nephrology (HFpEF) heart failure with preserved ejection fr action 12/07/2022 Overview: Ca 11.6 Hiatal hernia 12/07/2022 Overview: moderate Current moderate episode of major depressive disorder without prior episode 04/07/2022 Food insecurity 08/01/2021 Overview: Per [facility] Protocol Hypertensive heart and kidne [...] Chronic atrial fibrillation 03/01/2021 Overview: new onset, [facility] on apixaban Last Assessment 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[place] co ronary artery of [place] heart without angina pectoris Last Assessment & Plan: Stable no angina -continue rosuvastatin, metopropolol, Anxiety state Last Assessment & Plan: Stable on buspar, Primary hypertension Gastroesophageal reflux dise ase with esophagitis without hemorrhage Last Assessment & Plan: symptoms controlled on pantoprazole Scoliosis of lumbar spine Mixed incontinence urge and stress (male)(female ) documented as of this encounter (statuses as of 01/10/2023) Resolved Problems Problem Noted Date Diagnosed Date [...] BP at goal at metoprolol Acquired hypothyroidism 01/19/2016/3 Gastric ulcer 06/30/2014 06/26/2017 Overview: hgb 7.4 admitted [facility] CKD (chronic kidney disease) stage 3, GFR [...] as of this encounter (statuses as of 01/10/2023) Immunizations Name Administration Dates Next Due COVID-19 [...] encounter Miscellaneous Notes * Telephone Encounter - Alicia Atwood RPh - 01/10/2023 12:13 PM ESTRefused Prescriptions: Disp Refills Torsemide 20 MG Oral Tablet (Demadex) 30 Tab*5 Sig: TAKE ONE TABLET BY MOUTH IN THE MORNINGRefused By: ALICIA ATWOOD for Refusal: Refill Not Appropriate--- documented in this encounter Plan of Treatment Upcoming Encounters Date Type Department Care Team (Late st Contact Info) Description 01/22/2023 1:00 PM EST Office Visit Nephrology [address] [place] [phone] June Jade MD 200 [facility] [place] [address] 01/25/2023 12:30 PM EST Home Visit [facility] at [address] [place] [address] Lana Lieberman, KHARI 132 [facility] [place] [address] 01/29/2023 12:00 PM EST Office Visit [address] [phone] Con Coughlin MD [address] [place] [address] [place] [address] 02/05/2023 12:20 PM EST Office Visit [address] [phone] Con Coughlin MD [address] [place] [address] [place] [address] 04/13/2023 3:40 PM EST Office Visit [address] [phone] Marla Tan MD [address] [place] [address] [place] [address] Health Maintenance Due Date Last Done Comments DTaP,Tdap,and Td Vaccines (1 - Tdap) 11/15/1957 Depression Screening 09/29/2020 09/30/2019 COVID-19 Vaccine (5 - 2022- season) 2022 04/19/2020, 04/04/2020, 03/22/2020, Additional history exists Influenza Vaccine (FLU shot) (#1) 2022 01/10/2022, 11/18/2020, 12/06/2019, Additional history exists Albumin/Creatinine Ratio 07/28/2023 023, 06/09/2020, 03/13/2019, Additional history exists TSH 07/28/2023 07/27/2022, 05/21, 06/09/2020, Additional history exists CKD HGB USE SMARTSET 14172 10/05/202310/04, 10/04/2022, 07/06/2022, Additional history exists CKD PHOS USE SMARTSET 85509 10/05/202309/19, 06/08/2021, 09/07/2020, Additional history exists Pneumococcal [...] filedocumented as of this encounter Care Teams Backup Sawyer Relationship Specialty Start Date End Date Con Coughlin MD [address] [place] [address] [place] [address] PCP - General Family Medicine 06/30/14 documented as of this encounter
--- OUTSIDE RECORDS SUMMARY | 2023-01-29 20:08 | External Medical Summary | Summary of Care ---
Author Name Unknown Organization [facility] Address [address] [place] [address] Phone [phone] Care Team Providers Care Electrical Electronics Technician Name Role Phone Con Coughlin MD Primary Care Provider Reason for Visit * Reason Onset Date Comments Medication Refill 01/15/2023 Encounter Details Date Type Department Care Team (Late st Contact Info) Description 01/15/2023 Refill Family [address] [place] [phone] Con Coughlin MD [address] [place], [place] [address] [address] Allergies Active Allergy Reactions Criticality Noted Date [...] Chronic atrial fibrillation 03/01/2021 Overview: new onset, [facility] on apixaban Last Assessment & 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[place] co ronary artery of [place] heart without angina pectoris Last Assessment & [...] ulcer 06/30/2014 06/26/2017 Overview: hgb 7.4 admitted [facility] CKD (chronic kidney disease) stage [...] as of this encounter Miscellaneous Notes * Addendum Note - Debora Lucas LPN - 01/16/2023 11:20 AM ESTAddended by: DEBORA LUCAS on: 01/16/2023 11:20 AM Modules accepted: Orders * Telephone Encounter - Debora Lucas LPN - 01/16/2023 10:53 AM EST Pending Prescriptions: Disp Refills Metoprolol Succinate ER 50 MG Oral Tablet*90 Tab*1 Sig: Take 1 Tablet by mouth in the morning. Last Visit: 12/18/2022 (in office), 01/10/2023 (telemedicine) Next Visit: 01/29/2023 Last date the medication was ordered: Placed as historical Patient Active Problem List Diagnosis Code Hip joint replacement status Z96.649 GENERAL OSTEOARTHROSIS M15.9 Atherosclerosis of [place] coronary artery of [place] heart without angina pectoris I25.10 Anxiety state F41.1 ADVANCE DIRECTIVE INFORMATION DYSLIPIDEMIA, GOAL LDL BELOW 100 E78.5 Primary hypertension I10 Low back pain radiating to left leg M54.50, M79.605 Insomnia G47.00 Gastroesophageal reflux disease with esophagitis without hemorrhage K21.00 Acquired hypothyroidism E03.9 Scoliosis of lumbar spine M41.9 Bilateral shoulder region arthritis M19.011, M19.012 DDD (degenerative disc disease), lumbar M51.36 Mixed incontinence urge and stress (male)(female) N39.46 Aortic ectasia, 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, 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 History of gastric ulcer Z87.11 Greater trochanteric bursitis of right hip M70.61 Chronic atrial fibrillation ([facility]) I48.20 Aortocoronary bypass status Z95.1 Hypertensive heart and kidney disease with chronic diastolic congestive heart failure and stage 3b chronic kidney disease ([facility]) I13.0, I50.32, N18.32 Spondylosis of lumbar region without myelopathy or radiculopathy M47.816 Mild aortic stenosis I35.0 Food insecurity Z59.41 Current moderate episode of major depressive disorder without prior episode ([facility]) F32.1 Hypercalcemia E83.52 (HFpEF) heart failure with preserved ejection fraction ([facility]) I50.30 Hiatal hernia K44.9 Labs: Lab Results Component Value Date/Time CREATININE - [facility] 1.5 (H) 10/04/2022 11:59 AM CREATININE - [facility] 1.4 (H) 06/16/2019 10:39 AM CREATININE KEVYN 64 06/16/2019 10:39 AM CREATININE, RAND URINE-MET 147 03/08/2009 03:43 PM CREATININE, RAND URINE-VMA 147 03/08/2009 03:43 PM CREATININE, RANDOM URINE - [facility] 160 07/27/2022 11:42 AM CREATININE, RANDOM URINE - [facility] 87 03/13/2019 04:19 PM CREATININE-OUTSIDE LAB 1.08 05/09/2021 12:00 AM Lab Results Component Value Date/Time POTASSIUM - [facility] 3.6 10/04/2022 11:59 AM POTASSIUM - [facility] 5.1 06/16/2019 10:39 AM POTASSIUM-OUTSIDE LAB 4.5 05/09/2021 12:00 AM Lab Results Component Value Date/Time TSH - [facility] 0.34 07/27/2022 11:42 AM TSH - [facility] 0.77 06/16/2019 10:39 AM TSH - OUTSIDE LAB 0.595 03/11/2018 12:00 AM Lab Results Component Value Date/Time LDL (DIRECT MEASURE)-OUTSIDE [facility] 127 09/26/2010 04:09 PM LDL CHOLESTEROL (CALCULATED) - [facility] 73 06/09/2020 10:47 AM LDL CHOLESTEROL (CALCULATED) - [facility] 82 08/02/2015 02:56 PM LDL CHOLESTEROL (CALCULATED) - [facility] 67 01/21/2015 02:27 PM LDL CHOLESTEROL (DIRECT MEASURE) - [facility] NOT APPLICABLE 08/02/2015 02:56 PM LDL CHOLESTEROL (DIRECT MEASURE) - [facility] NOT APPLICABLE 01/21/2015 02:27 PM LDL CHOLESTEROL (DIRECT MEASURE) - [facility] 89 02/22/2012 02:40 PM LDL CHOLESTEROL (DIRECT MEASURE) - [facility] 87 07/10/2011 04:05 PM Lab Results Component Value Date/Time ALT - [facility] 15 07/06/2022 01:39 PM ALT - [facility] 26 06/16/2019 10:39 AM ALT-OUTSIDE LAB 27 11/18/2015 12:00 AM Hemoglobin AIC Results: Lab Results Component Value Date/Time HEMOGLOBIN A1C - [facility] 5.2 11/04/2013 12:09 PM HEMOGLOBIN A1C - [facility] 5.6 02/10/2008 10:46 AM HEMOGLOBIN A1C - [facility] 6.0 05/26/2003 02:17 PM * Telephone Encounter - Portia Dong, turnaround planner - 01/15/2023 1:26 PM EST [facility], [facility] [place] calling requesting the following medication below that is listed as "Historical". The following information was provided: Medication Name: Metoprolol Succinate ER 50 MG Oral Tablet Extended Release 24 Hour (toPROL XL) Strength: Directions: bid Preferred Quantity: 60 Previous Prescriber: Preferred Pharmacy: [facility], [address] [place] Please review and approve if appropriate. Thank you for your assistance Portia Dong Ball Assembler II Centralized Clinical Pharmacy Services (CCPS) (Formerly Telepharmacy) 01/15/2023,1:26 PM documented in this encounter Plan of Treatment Upcoming Encounters Date Type Department Care Team (Late st Contact Info) Description 01/22/2023 1:00 PM EST Office Visit Nephrology [address] [place] [address] June Jade MD [address] [place] [address] [place] [address] 01/25/2023 12:30 PM EST Home Visit [facility] [address] [facility] [place] [address] Lana Lieberman RN [address] [facility] [place] [address] 01/29/2023 12:00 PM EST Office Visit Family [address] [phone] Con Coughlin MD [address] [place] [address] [place] [address] 02/05/2023 12:20 PM EST Office Visit Family [address] [phone] Con Coughlin MD [address] [place] [address] [place] [address] 04/13/2023 3:40 PM EST Office Visit Family [address] [phone] Marla Tan MD [address] [place] [address] [place] [address] Health Maintenance Due Date Last Done Comments [...] Additional history exists CKD HGB USE SMARTSET 83448 10/05/202310/04, 10/04/2022, 07/06/2022, Additional history exists CKD PHOS USE SMARTSET 84272 10/05/202309/19, 06/08/2021, 09/07/2020, Additional history exists Pneumococcal [...] filedocumented as of this encounter Care Teams Electrical Electronics Technician Relationship Specialty Start Date End Date Con Coughlin MD [address] [place] [address] [place] [address] PCP - General Family Medicine 06/30/14 documented as of this encounter
--- OUTSIDE RECORDS SUMMARY | 2023-01-29 20:08 | External Medical Summary | Summary of Care ---
Author Name Unknown Organization [facility] Address [address] [place] [address] Phone [phone] Care Team Providers Care Rn Cardiology Name Role Phone Con Coughlin MD Primary Care Provider [phone] Reason for Visit * Reason Onset Date Comments Home Health 01/04/2023 Encounter Details Date Type Department Care Team (Late st Contact Info) Description 01/04/[address] [place] [phone] Con Coughlin MD [address] [place] [address] [place] [address] Home Health Allergies Active Allergy Reactions Criticality Noted Date Comments Ergotamine 03/01/2000 vomit Nitroglycerin 03/14/2007 vomitting documented as of this encounter (statuses as of 01/05/2023) Medications Medication Sig Dispensed Refills Start Date [...] as of this encounter (statuses as of 01/05/2023) Active Problems Problem Noted Date Diagnosed Date [...] discuss her pain concerns. She is aware [facility] does not manage chronic pain meds. With her history of confusion, would recommend against use of narcotic medication. Mild aortic stenosis 07/27/2021 Last Assessment & Plan: Following with cardiology Aortocoronary bypass status 03/09/2021 Chronic atrial fibrillation 03/01/2021 Overview: new onset, [facility] on apixaban Last Assessment & Plan: 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[place] co ronary artery of [place] heart without angina pectoris Last Assessment & Plan: Stable no angina -continue rosuvastatin, metopropolol, Anxiety state Last Assessment & Plan: Stable on buspar, Primary hypertension Gastroesophageal reflux dise ase with esophagitis without hemorrhage Last Assessment & Plan: symptoms controlled on pantoprazole Scoliosis of lumbar spine Mixed incontinence urge and stress (male)(female ) documented as of this encounter (statuses as of 01/05/2023) Resolved Problems Problem Noted Date Diagnosed Date [...] ulcer 06/30/2014 06/26/2017 Overview: hgb 7.4 admitted [facility] CKD (chronic kidney disease) stage 3, [...] as of this encounter (statuses as of 01/05/2023) Immunizations Name Administration Dates Next Due COVID-19 [...] encounter Miscellaneous Notes * Telephone Encounter - Sydnie Manuel LPN - 01/05/2023 9:57 AM EST [facility] calling in to check on the status of the order below. Advised of Dr. Coughlin's order and faxed to [facility] with success confirmation. * Telephone Encounter - Con Coughlin MD - 01/04/2023 11:36 AM EST I did the order. Treatment will depend on results * Telephone Encounter - Sydnie Manuel LPN - 01/04/2023 10:53 AM EST HH Concerns Henrietta GONG, Calling from: [facility] Vitals: T 98.5 P 105 RR 20 BP 210/110 took medication and waited about 15 minutes 180/100 SP O2 95% RA Lung sounds Clear Narrative: Henrietta calling in stating that patient has been sick for the last 10. She has cough, lethargic, abdominal upset and headache. She was prescribed tessalon pearls and Zofran. Henrietta was suppose to go out and discharge her today but decided against it due to her sickness. Blood pressure initially was 210/110 but patient has not taken her pill the last few days. Henrietta made her some toast and tea. Patient took her medication and BP 15 minutes later was 180/110. Henrietta is asking for an order for a Flu swab, Covid swab and any labs if PCP think are necessary. Henrietta is going to add another nurse visit on for her tomorrow to have the above obtained. Call back [facility] with any advice or orders at [phone] Please fax new orders to [phone] documented in this encounter Plan of Treatment Upcoming Encounters Date Type Department Care Team (Late st Contact Info) Description 01/22/2023 1:00 PM EST Office Visit Nephrology [address] [place] [address] June Jade MD [address] [place] [address] 01/25/2023 12:30 PM EST Home Visit [facility] at [facility] [address] [place] [address] Lana Lieberman RN [address] [place] [address] 01/29/2023 12:00 PM EST Office Visit Family Medicine [address] [phone] Con Coughlin MD [address] [place] [address] [place] [address] 04/13/2023 3:40 PM EST Office Visit Family Medicine [address] [phone] Marla Tan, MD [address] [place] [address] [place] [address] Scheduled Orders Name Type Priority Associated Diagnoses Orde r Schedule INFLUENZA A/B RSV SARS-COV2,PCR Lab Routine Viral URI with cough Expected: 01/05/2023 (Approximate), Expires: 01/04/2024 Health Maintenance Due Date Last Done Comments [...] Additional history exists CKD HGB USE SMARTSET 71791 10/05/202310/04, 10/04/2022, 07/06/2022, Additional history exists CKD PHOS USE SMARTSET 59299 10/05/202309/19, 06/08/2021, 09/07/2020, Additional history exists Pneumococcal [...] as of this encounter Visit Diagnoses Diagnosis Viral URI with cough- Primary Acute upper respiratory infections of unspecified site documented in this encounter Care Teams Rn Cardiology Relationship Specialty Start Date End Date Pilgram, Con A, MD [address] [place] [address] [place] [address] PCP - General Family Medicine 06/30/14 documented as of this encounter
--- OUTSIDE RECORDS SUMMARY | 2023-01-29 20:08 | External Medical Summary | Summary of Care ---
Author Name Unknown Organization [facility] Address [address] [place] [address] Phone [phone] Care Team Providers Care Supervisor Sheet Manufacturing Name Role Phone Con Coughlin MD Primary Care Provider [phone] Reason for Visit * Reason Onset Date Comments Medication Refill 01/15/2023 Encounter Details Date Type Department Care Team (Late st Contact Info) Description 01/15/[address] [place] [phone] Con Coughlin MD [address] [place] [address] [place] [address] Medication Refill Allergies Active Allergy Reactions Criticality Noted Date [...] discuss her pain concerns. She is aware [facility] does not manage chronic pain meds. With her history of confusion, would recommend against use of narcotic medication. Mild aortic stenosis 07/27/2021 Last Assessment & Plan: Following with cardiology Aortocoronary bypass status 03/09/2021 Chronic atrial fibrillation 03/01/2021 Overview: new onset, [facility] on apixaban Last Assessment & 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[place] co ronary artery of [place] heart without angina pectoris Last Assessment & [...] ulcer 06/30/2014 06/26/2017 Overview: hgb 7.4 admitted [facility] CKD (chronic kidney disease) stage [...] encounter Miscellaneous Notes * Telephone Encounter - Portia Dong compositor apprentice - 01/15/2023 1:26 PM EST [facility] [address] [place] calling requesting the following medication below that is listed as "Historical". The following information was provided: Medication Name: Metoprolol Succinate ER 50 MG Oral Tablet Extended Release 24 Hour (toPROL XL) Strength: Directions: bid Preferred Quantity: 60 Previous Prescriber: Preferred Pharmacy: [address] [place] Please review and approve if appropriate. Thank you for your assistance Portia Dong Admissions Specialist II Centralized Clinical Pharmacy Services (CCPS) (Formerly Telepharmacy) 01/15/2023,1:26 PM documented in this encounter Plan of Treatment Upcoming Encounters Date Type Department Care Team (Late st Contact Info) Description 01/22/2023 1:00 PM EST Office Visit Nephrology [address] [place] [address] June Jade MD [facility] [address] 01/25/2023 12:30 PM EST [facility] [place] [address] Lana Lieberman, KHARI [address] [place] [address] 01/29/2023 12:00 PM EST Office Visit Family Medicine [address] [place] [phone] Con Coughlin MD [address] [place] [address] [place] [address] 02/05/2023 12:20 PM EST Office Visit [address] [place] [phone] Con Coughlin MD [address] [place] [address] [place] [address] 04/13/2023 3:40 PM EST Office [address] [phone] Marla Tan MD [address] [place] [address] [place] [address] Health Maintenance Due Date Last Done Comments DTaP,Tdap,and Td Vaccines (1 - Tdap) 11/15/1957 Depression Screening 09/29/2020 09/30/2019 COVID-19 Vaccine (2022-24 season) 2022 04/19/2020, 04/04/2020, 03/22/2020, Additional history exists Influenza Vaccine (FLU shot) (#1) 2022 01/10/2022, 11/18/2020, 12/06/2019, Additional history exists Albumin/Creatinine Ratio 07/28/2023 023, 06/09/2020, 03/13/2019, Additional history exists TSH 07/28/2023 07/27/2022, 05/21, 06/09/2020, Additional history exists CKD HGB USE SMARTSET 52004 10/05/202310/04, 10/04/2022, 07/06/2022, Additional history exists CKD PHOS USE SMARTSET 18383 10/05/202309/19, 06/08/2021, 09/07/2020, Additional history exists Pneumococcal [...] filedocumented as of this encounter Care Teams Supervisor Sheet Manufacturing Relationship Specialty Start Date End Date Con Coughlin MD [address] [place] [address] [place] [phone] PCP - General Family Medicine 06/30/14 documented as of this encounter
--- OUTSIDE RECORDS SUMMARY | 2023-01-29 20:08 | External Medical Summary | Summary of Care ---
Author Name Unknown Organization [facility] Address [address] [place] [address] Phone [phone] Care Team Providers Care Fabric Awning Repairer Name Role Phone Con Coughlin MD Primary Care Provider Reason for Visit * Reason Onset Date Comments Appointment 01/01/2023 Encounter Details Date Type Department Care Team (Late st Contact Info) Description 01/01/[address] [place] [phone] Con Coughlin MD [address] [place] [address] [place] [address] Appointment Allergies Active Allergy Reactions Criticality Noted Date Comments Ergotamine 03/01/2000 vomit Nitroglycerin 03/14/2007 vomitting documented as of this encounter (statuses as of 01/02/2023) Medications Medication Sig Dispensed Refills Start Date [...] as of this encounter (statuses as of 01/02/2023) Active Problems Problem Noted Date Diagnosed Date [...] discuss her pain concerns. She is aware [facility] does not manage chronic pain meds. 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[place] co ronary artery of [place] heart without angina pectoris Last Assessment & Plan: Stable no angina -continue rosuvastatin, metopropolol, Anxiety state Last Assessment & Plan: Stable on buspar, Primary hypertension Gastroesophageal reflux dise ase with esophagitis without hemorrhage Last Assessment & Plan: symptoms controlled on pantoprazole Scoliosis of lumbar spine Mixed incontinence urge and stress (male)(female ) documented as of this encounter (statuses as of 01/02/2023) Resolved Problems Problem Noted Date Diagnosed Date [...] as of this encounter (statuses as of 01/02/2023) Immunizations Name Administration Dates Next Due COVID-19 [...] encounter Miscellaneous Notes * Telephone Encounter - Francheska Mike OSA - 01/02/2023 3:05 PM EST Appt scheduled, pt aware. * Telephone Encounter - Maylin Barfield RN - 01/01/2023 4:12 PM EST Pt was told last week she needs to be seen,Dr Coughlin will not continue to treat her by phone (she no showed for the appt last week). Please call pt with an appt for the next Open Provider for Ongoing Chest Congestion/cough * Telephone Encounter - Peyton Leon OSA - 01/01/2023 1:15 PM EST Reason for patient's call: Patient would like to speak to a nurse because she is still sick and themeds that were called in before didn't help. She wants to know if she can get something else. Declined further details. Please further advise. Caller was transferred to [facility] at the nurse line. (Declined - need to make an appointment - Offered pt appointment but declined and she said she would try to find something over the counter) documented in this encounter Plan of Treatment Upcoming Encounters Date Type Department Care Team (Late st Contact Info) Description 01/03/2023 10:40 AM EST Office Visit Family [address] [place] [phone] Con Coughlin MD [address] [place] [address] [place] [address] 01/22/2023 1:00 PM EST Office Visit Nephrology [address] [place] [address] June Jade MD [address] [place] [address] [place] [address] 01/25/2023 12:30 PM EST Home Visit [facility] at [facility] 132 [facility] [place] [address] Lana Lieberman, KHARI 132 [facility] [place] [address] 01/29/2023 12:00 PM EST Office Visit [address] [place] [phone] Con Coughlin MD [address] [place] [address] [place] [address] 04/13/2023 3:40 PM EST Office Visit [address] [place] [phone] Marla Tan MD [address] [place] [address] [place] [address] Health Maintenance Due Date Last Done Comments DTaP,Tdap,and Td Vaccines (1 - Tdap) 11/15/1957 Depression Screening 09/29/2020 09/30/2019 COVID-19 Vaccine ( season) 2022 04/19/2020, 04/04/2020, 03/22/2020, Additional history exists Influenza Vaccine (FLU shot) (#1) 2022 01/10/2022, 11/18/2020, 12/06/2019, Additional history exists Albumin/Creatinine Ratio 07/28/2023 023, 06/09/2020, 03/13/2019, Additional history exists TSH 07/28/2023 07/27/2022, 05/21, 06/09/2020, Additional history exists CKD HGB USE SMARTSET 65487 10/05/202310/04, 10/04/2022, 07/06/2022, Additional history exists CKD PHOS USE SMARTSET 55334 10/05/202309/19, 06/08/2021, 09/07/2020, Additional history exists Pneumococcal [...] filedocumented as of this encounter Care Teams Fabric Awning Repairer Relationship Specialty Start Date End Date Con Coughlin MD [address] [place] [address] [place] [phone] PCP - General Family Medicine 06/30/14 documented as of this encounter
--- OUTSIDE RECORDS SUMMARY | 2023-01-29 20:08 | External Medical Summary | Summary of Care ---
Author Name Unknown Organization [facility] Address [address] [place] [address] Phone [phone] Care Team Providers Care Hot Stamp Operator Name Role Phone Con Garcia MD Primary Care Provider [phone] Reason for Visit * Reason Comments eRx-Medication Refill Encounter Details Date Type Department Care Team (Late st Contact Info) Description 01/12/2023 Refill Family [address] [place] [phone] Con Garcia MD [address] [place] [address] [place] [phone] Nausea; Viral URI with cough; DDD (degenerative disc disease), lumbar Allergies Active Allergy Reactions Criticality Noted Date Comments Ergotamine 03/01/2000 vomit Nitroglycerin 03/14/2007 vomitting documented as of this encounter (statuses as of 01/15/2023) Medications Medication Sig Dispensed Refills Start Date End Date Status Acetaminophen 500 MG Oral Tablet (Tylenol) Take 1 Tab by mouth 3 times a day. 100 Tab 0 11/12/2020 Active Eliquis 5 MG Oral Tablet Take 1 Tablet by mouth in the morning and 1 Tablet before bedtime. 0 08/25/2022 Active busPIRone HCl 10 MG Oral Tablet (Buspar)Indicati ons:Anxiety state TAKE ONE TABLET BY MOUTH TWICE DAILY 60 Tablet 5 09/22/2022 Active Gabapentin 300 MG Oral Capsule (Neurontin)Indic ations:DDD (degenerative disc disease), lumbar Take 1 Capsule by mouth in the morning and 1 Capsule at noon and 1 Capsule before bedtime. 90 Capsule 5 10/10/2022 Active traZODone HCl 100 MG Oral Tablet (Desyrel)Indicat ions:Persistent insomnia One at bedtime 30 Tablet 5 10/11/2022 Active Loperamide HCl 2 MG Oral Tablet (Imodium A-D)Indications: Chronic diarrhea One tablet four times a day as needed 60 Tablet 1 11/07/2022 Active Levothyroxine Sodium 100 MCG Oral Tablet (Levoxyl) Take 1 Tablet by mouth in the morning. (at least 30 min prior to breakfast or other meds). 90 Tablet 3 11/20/2022 Active Rosuvastatin Calcium 10 MG Oral Tablet (Crestor)Indicat ions:Dyslipidemi a, goal LDL below 100 Take 1 Tablet by mouth daily. 90 Tablet 0 11/20/2022 Active Pantoprazole Sodium 40 MG Oral Tablet Delayed Release (Protonix)Indica tions:Gastric ulcer without hemorrhage or perforation, unspecified chronicity,Gastr oesophageal reflux disease with esophagitis without hemorrhage Take [...] 1 Capsule by mouth in the morning. M-W-F- three days a week . 0 12/15/2022 Active Meloxicam 7.5 MG Oral Tablet (Mobic)Indicatio ns:Bilateral shoulder region arthritis Take 1 Tablet by mouth in the morning. for pain.. 30 Tablet 5 12/18/2022 Active Amoxicillin 500 MG Oral Capsule (Amoxil)Indicati ons:Acute maxillary sinusitis, recurrence not specified Take 1 Capsule by mouth in the morning and 1 Capsule at noon and 1 Capsule before bedtime. Do all this for 10 days. 30 Capsule 0 01/10/2023 3 Active Ondansetron HCl 4 MG Oral Tablet (Zofran)Indicati ons:Nausea TAKE ONE TABLET BY MOUTH EVERY 6 HOURS NEEDED FOR NAUSEA 30 Tablet 1 01/15/2023 Active Benzonatate 100 MG Oral Capsule (Tessalon Perles)Indicatio ns:Viral URI with cough Take 1 Capsule by mouth 3 times a day as needed for Cough. 30 Capsule 1 01/15/2023 Active Ondansetron HCl 4 MG Oral Tablet (Zofran)Indicati ons:Nausea TAKE ONE TABLET BY MOUTH EVERY 6 HOURS NEEDED FOR nausea 30 Tablet 1 11/21/2022 3 Discontinued Benzonatate 100 MG Oral CapsuleIndicatio ns:Viral URI with cough Take 1 Capsule by mouth 3 times a day as needed for Cough. 30 Capsule 1 12/25/2022 3 Discontinued documented as of this encounter (statuses as of 01/15/2023) Active Problems Problem Noted Date Diagnosed Date Hypercalcemia 12/15/2022 Last Assessment & Plan: No longer on supplementation. Follow up with nephrology (HFpEF) heart failure with preserved ejection fr action 12/07/2022 Overview: Ca 11.6 Hiatal hernia 12/07/2022 Overview: moderate Current moderate episode of major depressive disorder without prior episode 04/07/2022 Food insecurity 08/01/2021 Overview: Per [facility] Protocol Hypertensive heart and kidne [...] discuss her pain concerns. She is aware [facility] does not manage chronic pain meds. With her history of confusion, would recommend against use of narcotic medication. Mild aortic stenosis 07/27/2021 Last Assessment & Plan: Following with cardiology Aortocoronary bypass status 03/09/2021 Chronic atrial fibrillation 03/01/2021 Overview: new onset, [facility] on apixaban Last Assessment & 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[place] co ronary artery of [place] heart without angina pectoris Last Assessment & Plan: Stable no angina -continue rosuvastatin, metopropolol, Anxiety state Last Assessment & Plan: Stable on buspar, Primary hypertension Gastroesophageal reflux dise ase with esophagitis without hemorrhage Last Assessment & Plan: symptoms controlled on pantoprazole Scoliosis of lumbar spine Mixed incontinence urge and stress (male)(female ) documented as of this encounter (statuses as of 01/15/2023) Resolved Problems Problem Noted Date Diagnosed Date [...] ulcer 06/30/2014 06/26/2017 Overview: hgb 7.4 admitted [facility] CKD (chronic kidney disease) stage [...] as of this encounter (statuses as of 01/15/2023) Immunizations Name Administration Dates Next Due COVID-19 [...] encounter Miscellaneous Notes * Telephone Encounter - Con Garcia MD - 01/15/2023 7:28 AM ESTSigned Prescriptions: Disp Refills Ondansetron HCl 4 MG Oral Tablet (Zofran) 30 Tab*1 Sig: TAKE ONE TABLET BY MOUTH EVERY 6 HOURS NEEDED FOR NAUSEA Authorizing Provider: CON GARCIA Benzonatate 100 MG Oral Capsule (Tessalon *30 Cap*1 Sig: Take 1 Capsule by mouth 3 times a day as needed for Cough. Authorizing Provider: CON GARCIA Re fused Prescriptions: Disp Refills Nabumetone 500 MG Oral Tablet (Relafen) 60 Tab*1 Sig: TAKE ONE TABLET BY MOUTH TWICE DAILY Refused By: LESTER VILLAREAL Reason for Refusal: Refill Not Appropriate * Telephone Encounter - Lester Villareal [facility] - 01/12/2023 4:55 PM ESTPending Prescriptions: Disp Refills Ondansetron HCl 4 MG Oral Tablet (Zofran) 30 Tab*1 Sig: TAKE ONE TABLET BY MOUTH EVERY 6 HOURS NEEDED FOR NAUSEA Benzonatate 100 MG Oral Capsule (Tessalon *30 Cap*1 Sig: Take 1 Capsule by mouth 3 times a day as needed for Cough. Refused Prescriptions: Disp Refills Nabumetone 500 MG Oral Tabl et (Relafen) 60 Tab*1 Sig: TAKE ONE TABLET BY MOUTH TWICE DAILY Refused By: LESTER VILLAREAL Reason for Refusal: Refill Not Appropriate * Telephone Encounter - Lester Villareal [facility] - 01/12/2023 4:53 PM EST [facility] is currently not authorized to approve refills for Benzonatate per refill protocol. Please approve if appropriate. Unable to authorize medication refills for Ondansetron at this time. Part of the protocol criteria used for refill authorization was not satisfied. Patient concurrently taking Trazodone which may increase risk of QT prolongation when given with Ondansetron. Please approve if appropriate. Thank you, Lester Villareal, PharmD Clinical Pharmacist [facility] ([facility] [phone] 01/12/2023, 4:53 PM Pending Prescriptions: Disp Refills Ondansetron HCl 4 MG Oral Tablet (Zofran)*30 Tab*1 Sig: TAKE ONE TABLET BY MOUTH EVERY 6 HOURS NEEDED FOR NAUSEA Benzonatate 100 MG Oral Capsule (Tessalon*30 Cap*1 Sig: Take 1 Capsule by mouth 3 times a day as needed for Cough. Refused Prescriptions: Disp Refills Nabumetone 500 MG Oral Tablet (Relafen) 60 Tab*1 Sig: TAKE ONE TABLET BY MOUTH TWICE DAILY Refused By: LESTER VILLAREAL Reason for Refusal: Refill Not Appropriate Last Visit: 12/18/2022 (in office), 01/10/2023 (telemedicine) Next Visit: 01/29/2023 If no future appointments scheduled, and last appointment is greater than a year ago, please schedule patient for a follow-up appointment Last date the medication was ordered: 11/21, 12/25 [facility], [address] [place]SEI Is this request for a controlled substance? No Urine Drug Screen: Results for orders placed [...] 1:00 PM EST Office Visit Nephrology [address] [place] [phone] June Jade MD [address] [place] [address] 01/25/2023 12:30 PM EST [facility] Visit [facility], [facility] [address] [facility] [place] [address] Lana Lieberman, KHARI [address] [place] [address] 01/29/2023 12:00 PM EST Office Visit Family [address] [phone] Con Garcia MD [address] [place] [address] [place] [address] 02/05/2023 12:20 PM EST Office Visit [address] [phone] Con Garcia MD [address] [place] [address] [place] [address] 04/13/2023 3:40 PM EST Office Visit [address] [phone] Marla Tan MD [address] [place] [address] [place] [phone] Health Maintenance Due Date Last Done Comments [...] Additional history exists CKD HGB USE SMARTSET 81076 10/05/202310/04, 10/04/2022, 07/06/2022, Additional history exists CKD PHOS USE SMARTSET 52595 10/05/202309/19, 06/08/2021, 09/07/2020, Additional history exists Pneumococcal [...] as of this encounter Visit Diagnoses Diagnosis Nausea Nausea alone Viral URI with cough Acute upper respiratory infections of unspecified site DDD (degenerative disc disease), lumbar Degeneration of lumbar or lumbosacral intervertebral disc documented in this encounter Care Teams Hot Stamp Operator Relationship Specialty Start Date End Date Con Garcia MD [address] [place] [address] [place] [phone] PCP - General Family Medicine 06/30/14 documented as of this encounter
--- OUTSIDE RECORDS SUMMARY | 2023-01-29 20:08 | External Medical Summary | Summary of Care ---
Author Name Unknown Organization [facility] Address [address] [place] [address] Phone [phone] Care Team Providers Care Maintenance Technician Name Role Phone Con Coughlin MD Primary Care Provider [phone] Reason for Visit * Reason Comments [facility]: Maintenance Encounter Details Date Type Department Care Team (Late st Contact Info) Description 12/28/2022 4:00 PM EST [facility] Visit [facility], [facility] [place] [address] Lana Lieberman, KHARI [address] [facility] [place] [address] Person under investigation for COVID-19* Allergies Active Allergy Reactions Criticality Noted Date Comments Ergotamine 03/01/2000 vomit Nitroglycerin 03/14/2007 vomitting documented as of this encounter (statuses as of 12/28/2022) Medications Medication Sig Dispensed Refills Start Date [...] as of this encounter (statuses as of 12/28/2022) Active Problems Problem Noted Date Diagnosed Date [...] BMP Pro-BNP Her weights are stable on [facility]. She appears euvolemic today. Spondylosis of lumbar [...] discuss her pain concerns. She is aware [facility] does not manage chronic pain meds. With her history of confusion, would recommend against use of narcotic medication. Mild aortic stenosis 07/27/2021 Last Assessment & Plan: Following with cardiology Aortocoronary bypass status 03/09/2021 Chronic atrial fibrillation 03/01/2021 Overview: new onset, [facility] on apixaban Last Assessment & Plan: 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[place] co ronary artery of [place] heart without angina pectoris Last Assessment & Plan: Stable no angina -continue rosuvastatin, metopropolol, Anxiety state Last Assessment & Plan: Stable on buspar, Primary hypertension Gastroesophageal reflux dise ase with esophagitis without hemorrhage Last Assessment & Plan: symptoms controlled on pantoprazole Scoliosis of lumbar spine Mixed incontinence urge and stress (male)(female ) documented as of this encounter (statuses as of 12/28/2022) Resolved Problems Problem Noted Date Diagnosed Date [...] 06/30/2014 06/26/2017 Overview: hgb 7.4 admitted [facility] CKD (chronic kidney disease) stage 3, [...] as of this encounter (statuses as of 12/28/2022) Immunizations Name Administration Dates Next Due COVID-19 [...] Sign Reading Time Taken Comments Blood Pressure 124/68 12/28/2022 1:48 PM EST Pulse 82 12/28/2022 1:48 PM EST Temperature 36.4 C (97.5 F) 12/28/2022 1:48 PM ES T Respiratory Rate 18 12/28/2022 1:48 PM EST Oxygen Saturation 98% 12/28/2022 1:48 PM EST Inhaled Oxygen Concentration - - Weight - - Height - - Body Mass Index - - documented in this encounter Progress Notes * Lana Lieberman RN - 12/28/2022 1:31 PM EST [facility] Knotting Machine Operator Portable Visit Date: 12/28/2022 Time: 1:31 PM Name: Zoya Howard : 1938 Current Concerns: Patient seen for GARCÍA#1- recent hospitalization 12/07- 12/12- d/t Afib and hypercalcemia. Presented with GI upset- nausea/dry heaves, poor appetite- received IV lopressor, Metoprolol 25mg and 1/2 liter NSS- returned to sinus rhythm. Upon discharge- prescribed Calcitriol Home with [facility]. Called into clinic with respiratory symptoms 12/26- cough, sore throat, headache. PCP requested patient be seen. No showed appointment. Continues with respiratory symptoms- nonproductive cough, headache, sore throat Nausea managed with Zofran- per hospital discharge- nausea most likely caused by hiatal hernia. VS wnl Lungs clear but diminished Sob with exertion No LE edema noted Voiding without difficulty Bowels wnl- per report Appetite fair- MOW's Taking fluids TT to Rocael Rashid PA-C- PCR to [facility] Problems/Symptoms: Review of Systems Constitutional: Negative. HENT: Negative. Eyes: Negative. Respiratory: Positive for shortness of breath. Cardiovascular: Negative. Gastrointestinal: Negative. Endocrine: Negative. Genitourinary: Negative. Musculoskeletal: Positive for gait problem. Skin: Negative. Hematological: Negative. Psychiatric/Behavioral: Negative. Physical Exam: BP 124/68 (BP Site: Right Arm, BP Position: Sitting, BP Cuff Size: Regular) | Pulse 82 | Temp 36.4 C (97.5 F) (Tympanic) | Resp 18 | SpO2 98% Pain 0 Physical Exam Constitutional: Appearance: Normal appearance. Cardiovascular: Rate and Rhythm: Normal rate. Rhythm irregular. Pulses: Normal pulses. Pulmonary: Effort: Pulmonary effort is normal. Abdominal: General: Bowel sounds are normal. Palpations: Abdomen is soft. Musculoskeletal: General: Normal range of motion. Skin: General: Skin is warm and dry. Capillary Refill: Capillary refill takes 2 to 3 seconds. Neurological: General: No focal deficit present. Mental Status: She is alert and oriented to person, place, and time. Psychiatric: Mood and Affect: Mood normal. Behavior: Behavior normal. [facility]-10 Completed this Visit: Yes Treatment/Plan: Respiratory panel to [facility] Chloraseptic spray for sore throat APAP prn discomfort Fluids encouraged Continue medications as prescribed Keep all upcoming MD appointments Vamsi colindres- deion LUCIA CM follow up in 2 weeks Home Interventions Provided: Labs/Specimen Collection Performed Respiratory panel Lab/Imaging Ordered Respiratory panel Consulted PCP/Specialist Reinforced current Plan of Care, including self-management and medication regimen Patient Needs to Remember: Call [facility] with any medical concerns/ red flags Referrals Needed: N/a Follow Up: Is there cellular connectivity/connectivity in the home? Yes Does the patient have internet in the home? No Patient encouraged to call the intake phone number for all urgent but not emergent issues. Scheduled to follow up with patient in 4 weeks. Lana Schuler RN 12/28/2022 1:31 PM documented in this encounter Plan of Treatment Upcoming Encounters Date Type Department Care Team (Late st Contact Info) Description 01/22/2023 1:00 PM EST Office Visit Nephrology [address] [place] [address] June Jade MD [address] [facility] [place] [place] [address] 01/25/2023 12:30 PM EST Home Visit [facility] [address] [place] [address] Lana Lieberman RN [address] [facility] [place] [address] 01/29/2023 12:00 PM EST Office Visit Family Medicine [address] [phone] Con Coughlin MD [address] [place] [address] [place] [address] 04/13/2023 3:40 PM EST Office Visit Family Medicine [address] [phone] Marla Tan MD [address] [place] [address] [place] [address] Pending Results Name Type Priority Associated Diagnoses Date /Time INFLUENZA A/B RSV SARS-COV2,PCR Lab Routine Person under investigation for COVID-19 12/28/2022 2:22 PM EST Scheduled Orders Name Type Priority Associated Diagnoses Orde r Schedule INFLUENZA A/B RSV SARS-COV2,PCR Lab Routine Person under investigation for COVID-19 Expected: 12/28/2022 (Approximate), Expires: 12/28/2023 Health Maintenance Due Date Last Done Comments [...] Additional history exists CKD HGB USE SMARTSET 79349 10/05/202310/04, 10/04/2022, 07/06/2022, Additional history exists CKD PHOS USE SMARTSET 75798 10/05/202309/19, 06/08/2021, 09/07/2020, Additional history exists Pneumococcal [...] as of this encounter Visit Diagnoses Diagnosis Person under investigation for COVID-19- Primary documented in this encounter Care Teams Maintenance Technician Relationship Specialty Start Date End Date Con Coughlin MD [address] [place] [address] [place] [address] PCP - General Family Medicine 06/30/14 documented as of this encounter
--- OUTSIDE RECORDS SUMMARY | 2023-01-29 20:08 | External Medical Summary ---
Author Name Unknown Address Unknown Organization [id number]:[facility] [place] [address] [facility] [address] Laboratory Report Ordering Provider Test Date Status NICHOLAS JAFFE 12/28/2022 14:22:25 Final Observation Date Value Abnormality Reference (Units ) Status SARS Coronavirus 2 12/28/2022 14:22:25 Negative N egative Final No SARS-CoV2 Coronavirus RNA detected by PCR (amplified probe).
This express test was developed and its performance characteristics determined by [facility]. It has not been cleared or approved by the U.S. Food and Drug Administration (FDA). FDA does not require this test to go thru premarket FDA review. This test is used for clinical purposes. It should not be regarded as investigational or for research. This laboratory is certified under the Clinical Laboratory Improvement Amendments (CLIA) as qualified to perform high complexity clinical laboratory testing.

This test is a nucleic acid amplification test (NAAT), a reverse transcriptase polymerase chain reaction (RT-PCR) test, or a Centers for Disease Control-acceptable equivalent. The test is performed in a high complexity Clinical Laboratory Improvement Amendments-(CLIA) certified laboratory. The test is acceptable for SARS-CoV-2 diagnosis, surveillance, and travel within the [place] and to most countries. Please check with local testing authorities about requirements before travel.

The validation of bronchial specimens, tracheal aspirates, and sputum for this assay was developed and performance characteristics determined by [facility]. The validation of alternate specimen types has not been cleared or approved by the U.S. Food and Drug Administration (FDA). It has been determined that such clearance is not necessary. Influenza virus A RNA [Prese nce] in Specimen by ESTER with probe detection 12/28/2022 14:22:25 Negative Negative Final No Influenza A RNA detected by PCR (amplified probe) Influenza virus B RNA [Prese nce] in Specimen by [facility]ER with probe detection 12/28/2022 14:22:25 Negative Negative Final No Influenza B RNA detected by PCR (amplified probe) Respiratory syncytial virus RNA [Identifier] in Specimen by ESTER with probe detection 12/28/2022 14:22:25 Negative Negative Final No Respiratory Syncytial Vir us RNA detected by PCR (amplified probe) Performing Location LABORATORY [address] Latricia [address]. [facility] [address]
--- OUTSIDE RECORDS SUMMARY | 2023-01-29 20:08 | External Medical Summary | Summary of Care ---
Author Name Unknown Organization [facility] Address [address] [place] [address] Phone [phone] Care Team Providers Care Machine Cleaner Name Role Phone Con Coughlin MD Primary Care Provider + [phone] Encounter Details Date Type Department Care Team (Late st Contact Info) Description 01/10/2023 9:40 AM EST Telemedicine Family Medicine [address] [place] [phone] Dionne Flores PA-C [address] [place] [address] [place] [address] Acute maxillary sinusitis, recurrence not specified* Allergies Active Allergy Reactions Criticality Noted Date [...] 5 12/18/2022 Active Benzonatate 100 MG Oral CapsuleIndications :Viral URI with cough Take 1 Capsule by mouth 3 times a day as needed for Cough. 30 Capsule 1 12/25/2022 Active Amoxicillin 500 MG Oral Capsule (Amoxil)Indication s:Acute maxillary sinusitis, recurrence not specified Take 1 Capsule by mouth in the morning and 1 Capsule at noon and 1 Capsule before bedtime. Do all this for 10 days. 30 Capsule 0 01/10/2023 01/20/2023 Active documented as of this encounter (statuses [...] discuss her pain concerns. She is aware [facility] does not manage chronic pain meds. With her history of confusion, would recommend against use of narcotic medication. Mild aortic stenosis 07/27/2021 Last Assessment & Plan: Following with cardiology Aortocoronary bypass status 03/09/2021 Chronic atrial fibrillation 03/01/2021 Overview: new onset, [facility] on apixaban Last Assessment & Plan: 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[place] co ronary artery of [place] heart without angina pectoris Last Assessment & [...] ulcer 06/30/2014 06/26/2017 Overview: hgb 7.[address] [facility] CKD (chronic kidney disease) stage 3, [...] on file documented as of this encounter Progress Notes * Dionne Flores PA-C - 01/10/2023 9:41 AM EST Patient location: HOME. I was in a hospital or clinic location. After connecting through televideo,patient was verified with two unique identifiers. Patient (or authorized legal b2b sales representative) was then informed that this was a Telemedicine visit and being conducted confidentially over secure lines. Methods to assure confidentiality were taken. Patient acknowledged consent and understanding of pr ivacy and security of the Telemedicine visit. The patient agreed to participate. Pt with nasal/head congestion, sinus pain/pressure, headache, trouble breathing through nose, slight cough. Pt denies fever, chills, nausea, vomiting, diarrhea, chest pain, SOB. Pt hasn't been aroundanyone who has been sick. Review of patient's allergies indicates: Allergen Reactions Ergotamine vomit Nitro [Nitroglycerin] vomitting Current Outpatient Medications Medication Sig Dispense Refill Acetaminophen 500 MG Oral Tablet (Tylenol) Take 1 Tab by mouth 3 times a day. 100 Tab 0 Eliquis 5 MG Oral Tablet Take 1 Tablet by mouth in the morning and 1 Tablet before bedtime. busPIRone HCl 10 MG Oral Tablet (Buspar) TAKE ONE TABLET BY MOUTH TWICE DAILY 60 Tablet 5 Gabapentin 300 MG Oral Capsule (Neurontin) Take 1 Capsule by mouth in the morning and 1 Capsule at noon and 1 Capsule before bedtime. 90 Capsule 5 traZODone HCl 100 MG Oral Tablet (Desyrel) One at bedtime 30 Tablet 5 Loperamide HCl 2 MG Oral Tablet (Imodium A-D) One tablet four times a day as needed 60 Tablet 1 Ondansetron HCl 4 MG Oral Tablet (Zofran) TAKE ONE TABLET BY MOUTH EVERY 6 HOURS NEEDED FOR nausea 30 Tablet 1 Levothyroxine Sodium 100 MCG Oral Tablet (Levoxyl) Take 1 Tablet by mouth in the morning. (at least30 min prior to breakfast or other meds). 90 Tablet 3 Rosuvastatin Calcium 10 MG Oral Tablet (Crestor) Take 1 Tablet by mouth daily. 90 Tablet 0 Pantoprazole Sodium 40 MG Oral Tablet Delayed Release (Protonix) Take 1 Tablet by mouth in the morning and 1 Tablet before bedtime. 180 Tablet 1 DIURETIC TITRATION PLAN If no improvement on day 3, contact heart failure managing provider. 1 Each0 Metoprolol Succinate ER 50 MG Oral Tablet Extended Release 24 Hour (toPROL XL) Take 1 Tablet by mouth in the morning. Calcitriol 0.25 MCG Oral Capsule (Rocaltrol) Take 1 Capsule by mouth in the morning. --- three days a week . Meloxicam 7.5 MG Oral Tablet (Mobic) Take 1 Tablet by mouth in the morning. for pain.. 30 Tablet 5 Benzonatate 100 MG Oral Capsule Take 1 Capsule by mouth 3 times a day as needed for Cough. 30 Capsule 1 No current facility-administered medications for this visit. Past Medical History: Diagnosis Date (HFpEF) heart failure with preserved ejection fraction (HCC) 12/07/2022 Acute on chronic combined systolic and diastolic CHF (congestive heart failure) (HCC) 03/28/[address] [facility] Anxiety state Anxiety State Aortic valve stenosis, mild 03/01/2021 Aortocoronary bypass status Atherosclerosis of [place] coronary artery of [place] heart without angina pectoris Atrial fibrillation (HCC) 12/09/2020 during admission [place] Benign hypertension with CKD (chronic kidney disease) stage III ([facility]) Cataract cortical, senile Chronic atrial fibrillation ([facility]) 03/01/2021 new onset, 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 Herpes zoster without complication 11/18/2020 right hip Hiatal hernia 12/07/2022 moderate Hypercalcemia 12/07/2022 Ca 11.6 Hypertension goal BP (blood pressure) < 140/90 Macular hole of left eye Major depression, single episode MEDICATION USE AGREEMENT 03/19/2012 Tylenol with codeine--Reena Meningioma, cerebral ([facility]) 07/16/2022 small frontal cortex meningioma without mass effect Meningioma, cerebral ([facility]) 08/02/2022 Adding D32.0-Meningioma, cerebral ([facility]) Dx to History Migraines history of migraines--stopped 1998 Mixed incontinence urge and stress (male)(female) Moderate mitral regurgitation 03/01/[address] Ndiaye Other and unspecified noninfectious gastroenteritis and colitis(558.9) 06/24/[address] [facility] Other forms of retinal detachment(361.89) Pneumonia due to COVID-19 virus 12/09/2020 [place], transferred to [place] Postoperative anemia due to acute blood loss 03/11/2018 hgb 7, given 2 units PRBC hgb 9 on discharge Reflux esophagitis Scoliosis of lumbar spine Syncope and collapse 03/11/2018 hit head, admitted to [facility] Trochanteric bursitis of right hip 10/24/2020 Social History Socioeconomic History Marital status: Spouse name: Not on file Number of children: Not on file Years of education: Not on file Highest education level: Not on file Occupational History Not on file Tobacco Use Smoking status: Never Smokeless tobacco: Never Substance and Sexual Activity Alcohol use: Yes Comment: OCC-- 2oz per week Drug use: No Sexual activity: Not Currently Other Topics Concern Not on file Social History Narrative Zoya Boles Social Determinants of Health Financial Resource Strain: Not on file Food Insecurity: No Food Insecurity (06/28/2022) Hunger Vital Sign Worried About Running Out of Food in the Last Year: Never true Ran Out of Food in the Last Year: Never true Transportation Needs: Not on file Physical Activity: Not on file Stress: Not on file Social Connections: Not on file Intimate Partner Violence: Not on file Housing Stability: Not on file O:There were no vitals taken for this visit. Telemed visit A:Acute maxillary sinusitis, recurrence not specified (Primary) - Amoxicillin 500 MG Oral Capsule (Amoxil); Take 1 Capsule by mouth in the morning and 1 Capsule atnoon and 1 Capsule before bedtime. Do all this for 10 days. Start above med. If this persists, please come in to office to be seen. Any questions/problems, please call. If anything changes, worsens, develops new sx, please call [facility]. Follow Up: Return if symptoms worsen or fail to improve. Dionne Flores PA-C documented in this encounter Plan of Treatment Upcoming Encounters Date Type Department Care Team (Late st Contact Info) Description 01/22/2023 1:00 PM EST Office Visit Nephrology [address] [place] [address] June Jade MD [address] [place] [address], [place] [address] 01/25/2023 12:30 PM EST Home Visit [facility] [address] [facility] [place] [address] Lana Lieberman RN [address] [place] [address] 01/29/2023 12:00 PM EST Office Visit Family Medicine [address] [place] [phone] Con Coughlin MD [address] [place] [address] [place] [address] 02/05/2023 12:20 PM EST Office Visit [address] [phone] Con Coughlin MD [address] [place] [address] [place] [address] 04/13/2023 3:40 PM EST Office Visit [address] [phone] Marla Tan MD [address] [place] [address] [place] [address] Health Maintenance Due Date Last Done Comments [...] Additional history exists CKD HGB USE SMARTSET 64513 10/05/202310/04, 10/04/2022, 07/06/2022, Additional history exists CKD PHOS USE SMARTSET 61308 10/05/202309/19, 06/08/2021, 09/07/2020, Additional history exists Pneumococcal [...] as of this encounter Visit Diagnoses Diagnosis Acute maxillary sinusitis, recurrence not specified- Primary documented in this encounter Care Teams Machine Cleaner Relationship Specialty Start Date End Date Con Coughlin MD [address] [place] [address] [place] [phone] PCP - General Family Medicine 06/30/14 documented as of this encounter
--- OUTSIDE RECORDS SUMMARY | 2023-01-29 20:08 | External Medical Summary | Summary of Care ---
Author Name Unknown Organization [facility] Address [address] [place] [address] Phone [phone] Care Team Providers Care Rehabilitation Director Name Role Phone Con Coughlin MD Primary Care Provider Reason for Visit * Reason Onset Date Comments Med Request 12/25/2022 Encounter Details Date Type Department Care Team (Late st Contact Info) Description 12/25/[address] [place] [phone] Con Coughlin MD [address] [place] [address] [place] [address] Med Request Allergies Active Allergy Reactions Criticality Noted Date Comments Ergotamine 03/01/2000 vomit Nitroglycerin 03/14/2007 vomitting documented as of this encounter (statuses as of 12/25/2022) Medications Medication Sig Dispensed Refills Start Date [...] 1 Capsule by mouth in the morning. 0 12/15/2022 Active Meloxicam 7.5 MG Oral Tablet (Mobic)Indications: Bilateral shoulder region arthritis Take 1 Tablet by mouth in the morning. for pain.. 30 Tablet 5 12/18/2022 Active Benzonatate 100 MG Oral CapsuleIndications: Viral URI with cough Take 1 Capsule by mouth 3 times a day as needed for Cough. 30 Capsule 1 12/25/2022 Active documented as of this encounter (statuses as of 12/25/2022) Active Problems Problem Noted Date Diagnosed Date Hypercalcemia 12/15/2022 Last Assessment & Plan: No longer on supplementation. Follow up with nephrology (HFpEF) heart failure with preserved ejection fr action 12/07/2022 Overview: Ca 11.6 Hiatal hernia 12/07/2022 Overview: moderate Current moderate episode of major depressive disorder without prior episode 04/07/2022 Food insecurity 08/01/2021 Overview: Per [facility] Protocol Hypertensive heart and kidne [...] discuss her pain concerns. She is aware [facility] does not manage chronic pain meds. With her history of confusion, would recommend against use of narcotic medication. Mild aortic stenosis 07/27/2021 Last Assessment & Plan: Following with cardiology Aortocoronary bypass status 03/09/2021 Chronic atrial fibrillation 03/01/2021 Overview: new onset, [facility] on apixaban Last Assessment & Plan: Her 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[place] co ronary artery of [place] heart without angina pectoris Last Assessment & Plan: Stable no angina -continue rosuvastatin, metopropolol, Anxiety state Last Assessment & Plan: Stable on buspar, Primary hypertension Gastroesophageal reflux dise ase with esophagitis without hemorrhage Last Assessment & Plan: symptoms controlled on pantoprazole Scoliosis of lumbar spine Mixed incontinence urge and stress (male)(female ) documented as of this encounter (statuses as of 12/25/2022) Resolved Problems Problem Noted Date Diagnosed Date [...] at goal at metoprolol Acquired hypothyroidism 01/19/2016 11/3 Gastric ulcer 06/30/2014 06/26/2017 Overview: hgb 7.4 admitted [facility] CKD (chronic kidney disease) stage 3, GFR [...] as of this encounter (statuses as of 12/25/2022) Immunizations Name Administration Dates Next Due COVID-19 [...] Telephone Encounter - Maylin Barfield RN - 12/25/2022 2:41 PM EST message left for pt * Telephone Encounter - Con Coughlin MD - 12/25/2022 10:56 AM EST I sent something for cough to [facility]. She can take Sudafed too. * Telephone Encounter - Nita Rodriguez LPN - 12/25/2022 10:19 AM EST Call details copied: Pt has been sick for 1 day. Cold/Asthma/Allergy COLD/ASTHMA/ALLERGY Yes Cold Symptoms Headache,Chest congestion,Sinus pressure,Nasal Congestion,Chills Cough COUGH: Yes Cough Symptoms: During day,Dry How long has your cough lasted? 1 days Additional Comment(s) Additional Comments: Pt requesting Meds Patient Request Patient Requesting: Advice,Medication Prescribed * Telephone Encounter - Terese Wall OSA - 12/25/2022 10:11 AM EST Med request see call details. Lost patient during call. Called pt back - having a hard time talking. documented in this encounter Plan of Treatment Upcoming Encounters Date Type Department Care Team (Late st Contact Info) Description 12/28/2022 4:00 PM EST Home Visit [facility] at [facility] [address] [facility] [place] [address] Lana Lieberman, RN [address] [place] [address] 01/22/2023 1:00 PM EST Office Visit Nephrology [address] [place] [address] June Jade MD [address] [place] [address] 01/29/2023 12:00 PM EST Office Visit Family Medicine [address] [phone] Con Coughlin MD [address] [place] [address] [place] [address] 04/13/2023 3:40 PM EST Office Visit Family Medicine [address] [place] [phone] Marla Tan MD [address] [place] [address] [place] [address] Health Maintenance Due Date Last Done Comments DTaP,Tdap,and Td Vaccines (1 - Tdap) 11/15/1957 Depression Screening 09/29/2020 09/30/2019 COVID-19 Vaccine (2022-24 season) 2022 04/19/2020, 04/04/2020, 03/22/2020, Additional history exists Influenza Vaccine (FLU shot) (#1) 2022 01/10/2022, 11/18/2020, 12/06/2019, Additional history exists Albumin/Creatinine Ratio 07/28/2023 023, 06/09/2020, 03/13/2019, Additional history exists TSH 07/28/2023 07/27/2022, 05/21, 06/09/2020, Additional history exists CKD HGB USE SMARTSET 01119 10/05/202310/04, 10/04/2022, 07/06/2022, Additional history exists CKD PHOS USE SMARTSET 33694 10/05/202309/19, 06/08/2021, 09/07/2020, Additional history exists Pneumococcal [...] site documented in this encounter Care Teams Rehabilitation Director Relationship Specialty Start Date End Date Con Coughlin MD [address] [place] [address] [place] [phone] PCP - General Family Medicine 06/30/14 documented as of this encounter
--- OUTSIDE RECORDS SUMMARY | 2023-01-29 20:08 | External Medical Summary | Summary of Care ---
Author Name Unknown Organization [facility] Address [address] [place] [address] Phone [phone] Care Team Providers Care Dairy Manufacturing Technologist Name Role Phone Con Coughlin MD Primary Care Provider Reason for Visit * Reason Onset Date Comments Appointment 01/01/2023 Encounter Details Date Type Department Care Team (Late st Contact Info) Description 01/01/[address] [place] [phone] Con Coughlin MD [address] [place] [address] [place] [address] Appointment Allergies Active Allergy Reactions Criticality Noted [...] atrial fibrillation 03/01/2021 Overview: new onset, [facility] on apixaban Last Assessment & Plan: 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[place] co ronary artery of [place] heart without angina pectoris Last Assessment & [...] 06/30/2014 06/26/2017 Overview: hgb 7.4 admitted [facility] CKD (chronic kidney disease) stage 3, [...] Please further advise. Caller was transferred to [facility] at the nurse line. (Declined - need to make an appointment - Offered pt appointment but declined and she said she would try to find something over the counter) documented in this encounter Plan of Treatment Upcoming Encounters Date Type Department Care Team (Late st Contact Info) Description 01/03/2023 10:40 AM EST Office Visit Family [address] [place] [phone] Con Coughlin MD [address] [place] [address] [place] [address] 01/22/2023 1:00 PM EST Office Visit Nephrology [address] [place] [address] June Jade MD [address] [place] [address] [place] [address] 01/25/2023 12:30 PM EST Home Visit [facility] at [facility] [address] [facility] [place] [address] Lana Lieberman, KHARI [address] [facility] [place] [address] 01/29/2023 12:00 PM EST Office Visit [address] [place] [phone] Con Coughlin MD [address] [place] [address] [place] [address] 04/13/2023 3:40 PM EST Office Visit [address] [place] [phone] Marla Tan MD [address] [place] [address] [place] [address] Health Maintenance Due Date Last Done Comments DTaP,Tdap,and Td Vaccines (1 - Tdap) 11/15/1957 Depression Screening 09/29/2020 09/30/2019 COVID-19 Vaccine ( season) 2022 04/19/2020, 04/04/2020, 03/22/2020, Additional history exists Influenza Vaccine (FLU shot) (#1) 2022 01/10/2022, 11/18/2020, 12/06/2019, Additional history exists Albumin/Creatinine Ratio 07/28/2023 023, 06/09/2020, 03/13/2019, Additional history exists TSH 07/28/2023 07/27/2022, 05/21, 06/09/2020, Additional history exists CKD HGB USE SMARTSET 26463 10/05/202310/04, 10/04/2022, 07/06/2022, Additional history exists CKD PHOS USE SMARTSET 90155 10/05/202309/19, 06/08/2021, 09/07/2020, Additional history exists Pneumococcal [...] filedocumented as of this encounter Care Teams Dairy Manufacturing Technologist Relationship Specialty Start Date End Date Con Coughlin MD [address] [place] [address] [place] [phone] PCP - General Family Medicine 06/30/14 documented as of this encounter
--- OUTSIDE RECORDS SUMMARY | 2023-01-29 20:08 | External Medical Summary | Summary of Care ---
Author Name Unknown Organization [facility] Address [address] [place] [address] Phone [phone] Care Team Providers Care Is Analyst Name Role Phone Con Coughlin MD Primary Care Provider Reason for Visit * Reason Onset Date Comments Advice 12/26/2022 Encounter Details Date Type Department Care Team (Late st Contact Info) Description 12/26/[address] [place] [phone] Con Coughlin MD [address] [place] [address] [place] [address] Advice Allergies Active Allergy Reactions Criticality Noted Date Comments Ergotamine 03/01/2000 vomit Nitroglycerin 03/14/2007 vomitting documented as of this encounter (statuses as of 12/26/2022) Medications Medication Sig Dispensed Refills Start Date [...] as of this encounter (statuses as of 12/26/2022) Active Problems Problem Noted Date Diagnosed Date [...] discuss her pain concerns. She is aware [facility] does not manage chronic pain meds. With her history of confusion, would recommend against use of narcotic medication. Mild aortic stenosis 07/27/2021 Last Assessment & Plan: Following with cardiology Aortocoronary bypass status 03/09/2021 Chronic atrial fibrillation 03/01/2021 Overview: new onset, [facility] on apixaban Last Assessment & 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[place] co ronary artery of [place] heart without angina pectoris Last Assessment & Plan: Stable no angina -continue rosuvastatin, metopropolol, Anxiety state Last Assessment & Plan: Stable on buspar, Primary hypertension Gastroesophageal reflux dise ase with esophagitis without hemorrhage Last Assessment & Plan: symptoms controlled on pantoprazole Scoliosis of lumbar spine Mixed incontinence urge and stress (male)(female ) documented as of this encounter (statuses as of 12/26/2022) Resolved Problems Problem Noted Date Diagnosed Date [...] ulcer 06/30/2014 06/26/2017 Overview: hgb 7.4 admitted [facility] CKD (chronic kidney disease) stage [...] as of this encounter (statuses as of 12/26/2022) Immunizations Name Administration Dates Next Due COVID-19 [...] Telephone Encounter - Maylin Barfield RN - 12/26/2022 4:02 PM EST I left a voice mail on patients phone with an appt for tomorrow with Dr Coughlin * Telephone Encounter - Con Coughlin MD - 12/26/2022 9:17 AM EST She is too high risk to not be seen by someone. I am not just treating her over the phone. * Telephone Encounter - Kanwal Lucas LPN - 12/26/2022 8:27 AM EST Patient is calling. Said she has been sick since Sunday. There is no way she [facility] get [facility]. She has a sore throat. Last evening her temp was 100. Aches all over. Headache. Head congestion. Chest congestion. She is not coughing. She can barely talk. Denies shortness of breath anymore than usual. Very congested and nothing coming out. Either her head or chest. Has nausea. Has not been throwing up. Encouraged to drink or take sips continuously. Ice chips encouraged. * Telephone Encounter - Maia Amador OSA - 12/26/2022 8:25 AM EST Reason for patient's call: requesting to speak to nurse about chest congestion Caller was transferred to [facility] at the nurse line. documented in this encounter Plan of Treatment Upcoming Encounters Date Type Department Care Team (Late st Contact Info) Description 12/27/2022 11:20 AM EST Office Visit [address] [phone] Con Coughlin MD [address] [place] [address] [place] [address] 12/28/2022 4:00 PM EST Home Visit [facility] at [facility] [address] [place] [address] Lana Lieberman RN [address] [facility] [place] [address] 01/22/2023 1:00 PM EST Office Visit Nephrology [address] [place] [address] June Jade MD [address] [place] [address] 01/29/2023 12:00 PM EST Office Visit [address] [place] [phone] Con Coughlin MD [address] [place] [address] [place] [address] 04/13/2023 3:40 PM EST Office Visit [address] [place] [phone] Marla Tan MD [address] [place] [address] [place] [address] Health Maintenance Due Date Last Done Comments [...] Additional history exists CKD HGB USE SMARTSET 21982 10/05/202310/04, 10/04/2022, 07/06/2022, Additional history exists CKD PHOS USE SMARTSET 31368 10/05/202309/19, 06/08/2021, 09/07/2020, Additional history exists Pneumococcal [...] filedocumented as of this encounter Care Teams Is Analyst Relationship Specialty Start Date End Date Con Coughlin MD [address] [place] [address] [place] [address] PCP - General Family Medicine 06/30/14 documented as of this encounter
--- OUTSIDE RECORDS SUMMARY | 2023-01-29 20:08 | External Medical Summary | Summary of Care ---
Author Name Unknown Organization [facility] Address [address] [place] [address] Phone [phone] Care Team Providers Care Central Sterile Technician Name Role Phone Con Coughlin MD Primary Care Provider Reason for Visit * Reason Onset Date Comments Med Request 12/23/2022 Advice 12/23/2022 Encounter Details Date Type Department Care Team (Late st Contact Info) Description 12/23/2022 Telephone Family [address] [phone] Con Coughlin MD [address] [place] [address] [place] [address] Med Request; Advice Allergies Active Allergy Reactions Criticality Noted Date Comments Ergotamine 03/01/2000 vomit Nitroglycerin 03/14/2007 vomitting documented as of this encounter (statuses as of 12/23/2022) Medications Medication Sig Dispensed Refills Start Date [...] for pain.. 30 Tablet 5 12/18/2022 Active documented as of this encounter (statuses as of 12/23/2022) Active Problems Problem Noted Date Diagnosed Date Hypercalcemia 12/15/2022 Last Assessment & Plan: No longer on supplementation. Follow up with nephrology (HFpEF) heart failure with preserved ejection fr action 12/07/2022 Overview: Ca 11.6 Hiatal hernia 12/07/2022 Overview: moderate Current moderate episode of major depressive disorder without prior episode 04/07/2022 Food insecurity 08/01/2021 Overview: Per [facility] Protocol Hypertensive heart and kidne [...] discuss her pain concerns. She is aware [facility] does not manage chronic pain meds. With her history of confusion, would recommend against use of narcotic medication. Mild aortic stenosis 07/27/2021 Last Assessment & Plan: Following with cardiology Aortocoronary bypass status 03/09/2021 Chronic atrial fibrillation 03/01/2021 Overview: new onset, [facility] on apixaban Last Assessment & Plan: 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[place] co ronary artery of [place] heart without angina pectoris Last Assessment & Plan: Stable no angina -continue rosuvastatin, metopropolol, Anxiety state Last Assessment & Plan: Stable on buspar, Primary hypertension Gastroesophageal reflux dise ase with esophagitis without hemorrhage Last Assessment & Plan: symptoms controlled on pantoprazole Scoliosis of lumbar spine Mixed incontinence urge and stress (male)(female ) documented as of this encounter (statuses as of 12/23/2022) Resolved Problems Problem Noted Date Diagnosed Date [...] ulcer 06/30/2014 06/26/2017 Overview: hgb 7.4 admitted [facility] CKD (chronic kidney disease) stage 3, [...] as of this encounter (statuses as of 12/23/2022) Immunizations Name Administration Dates Next Due COVID-19 [...] Telephone Encounter - Maylin Barfield RN - 12/23/2022 3:19 PM EDT Pt was advised earlier to go to Urgent Care. She did not. I advised that she try some Airborne, plenty of fluid and rest. If she does not improve we can see her in clinic next week * Telephone Encounter - Zoya Castillo OSA - 12/23/2022 2:59 PM EDT Patient thinks she is coming down with the flu and is wondering if there is any thing she can take to help stop it? documented in this encounter Plan of Treatment Upcoming Encounters Date Type Department Care Team (Late st Contact Info) Description 12/28/2022 4:00 PM EST Home Visit [facility] [address] [address] Lana Lieberman, RN [address] [address] 01/22/2023 1:00 PM EST Office Visit Nephrology [address] [place] [address] June Jade MD [address] [place] [address] 01/29/2023 12:00 PM EST Office Visit [address] [place] [phone] Con Coughlin MD [address] [place] [address] [place] [address] 04/13/2023 3:40 PM EST Office Visit [address] [place] [phone] Marla Tan MD [address] [place] [address] [place] [address] Health Maintenance Due Date Last Done Comments [...] Additional history exists CKD HGB USE SMARTSET 19955 10/05/202310/04, 10/04/2022, 07/06/2022, Additional history exists CKD PHOS USE SMARTSET 66992 10/05/202309/19, 06/08/2021, 09/07/2020, Additional history exists Pneumococcal [...] filedocumented as of this encounter Care Teams Central Sterile Technician Relationship Specialty Start Date End Date Con Coughlin MD [address] [place] [address] [place] [address] PCP - General Family Medicine 06/30/14 documented as of this encounter
--- OUTSIDE RECORDS SUMMARY | 2023-01-29 20:08 | External Medical Summary | Summary of Care ---
Author Name Unknown Organization [facility] Address [address] [place] [address] Phone [phone] Care Team Providers Care Paper Coating Supervisor Name Role Phone Con Coughlin MD Primary Care Provider [phone] Encounter Details Date Type Department Care Team (Late st Contact Info) Description 01/03/2023 Population Health External Data Unspecified Department Allergies Active Allergy Reactions Criticality Noted Date Comments Ergotamine 03/01/2000 vomit Nitroglycerin 03/14/2007 vomitting documented as of this encounter (statuses as of 01/03/2023) Medications Medication Sig Dispensed Refills Start Date [...] as of this encounter (statuses as of 01/03/2023) Active Problems Problem Noted Date Diagnosed Date [...] discuss her pain concerns. She is aware [facility] does not manage chronic pain meds. With her history of confusion, would recommend against use of narcotic medication. Mild aortic stenosis 07/27/2021 Last Assessment & Plan: Following with cardiology Aortocoronary bypass status 03/09/2021 Chronic atrial fibrillation 03/01/2021 Overview: new onset, [facility] on apixaban Last Assessment & 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[place] co ronary artery of [place] heart without angina pectoris Last Assessment & Plan: Stable no angina -continue rosuvastatin, metopropolol, Anxiety state Last Assessment & Plan: Stable on buspar, Primary hypertension Gastroesophageal reflux dise ase with esophagitis without hemorrhage Last Assessment & Plan: symptoms controlled on pantoprazole Scoliosis of lumbar spine Mixed incontinence urge and stress (male)(female ) documented as of this encounter (statuses as of 01/03/2023) Resolved Problems Problem Noted Date Diagnosed Date [...] ulcer 06/30/2014 06/26/2017 Overview: hgb 7.4 admitted [facility] CKD (chronic kidney disease) stage [...] as of this encounter (statuses as of 01/03/2023) Immunizations Name Administration Dates Next Due COVID-19 [...] on file documented as of this encounter Plan of Treatment Upcoming Encounters Date Type Department Care Team (Late st Contact Info) Description 01/22/2023 1:00 PM EST Office Visit Nephrology [address] [place] [address] June Jade MD 200 [place] [address] 01/25/2023 12:30 PM EST Home Visit [facility] [address] [place] [address] Lana Lieberman RN 132 [facility] [place] [address] 01/29/2023 12:00 PM EST Office Visit Family Medicine [address] [place] [phone] Con Coughlin MD [address] [place] [address] [place] [address] 04/13/2023 3:40 PM EST Office Visit Family Medicine [address] [place] [phone] Marla Tan MD [address] [place] [address] [place] [address] Health Maintenance Due Date Last Done Comments [...] Additional history exists CKD HGB USE SMARTSET 79916 10/05/202310/04, 10/04/2022, 07/06/2022, Additional history exists CKD PHOS USE SMARTSET 17174 10/05/202309/19, 06/08/2021, 09/07/2020, Additional history exists Pneumococcal [...] filedocumented as of this encounter Care Teams Paper Coating Supervisor Relationship Specialty Start Date End Date Con Coughlin MD [address] [place] [address] [address] [place] [address] PCP - General Family Medicine 06/30/14 documented as of this encounter
--- OUTSIDE RECORDS SUMMARY | 2023-01-29 20:09 | External Medical Summary | Summary of Care ---
Author Name Unknown Organization [facility] Address [address] [place] [address] Phone [phone] Care Team Providers Care Die Welder Name Role Phone Con Coughlin MD Primary Care Provider [phone] Reason for Visit * Reason Onset Date Comments [facility]: Acute 12/07/2022 Encounter Details Date Type Department Care Team Description 12/07/2022 Telephone [facility], [facility] [address] [facility] [place] [address] [facility], Nurse [facility] 132 [place] [address] [facility]: Acute Allergies Active Allergy Reactions Severity Noted Date Comments Ergotamine 03/01/2000 vomit Nitroglycerin 03/14/2007 vomitting documented as of this encounter (statuses as of 12/07/2022) Medications Medication Sig Dispensed Refills Start Date End Date Status Acetaminophen 500 MG Oral Tablet (Tylenol) Take 1 Tab by mouth 3 times a day. 100 Tab 0 11/12/2020 Active Diphenoxylate-Atrop ine 2.5-0.025 MG Oral Tablet Take by mouth every 4 hours as needed for Diarrhea. Patient taking 1-2 tabs every 4 hours for diarrhea. 0 Active Polyethylene Glycol 3350 17 GM/SCOOP Oral Powder (MiraLax) Take 17 g by mouth as needed for Constipation. Dissolve one heaping tablespoon in 8 ounces of water or juice. 225 g 3 08/02/2022 Active Additional Information Patient not taking.Reported on 11/29/2022 amLODIPine Besylate 5 MG Oral Tablet (Norvasc) Take 1 Tablet by mouth in the morning. 0 Active Eliquis 5 MG Oral Tablet Take [...] mouth daily. 90 Tablet 0 11/20/2022 Active Metoprolol Succinate ER 25 MG Oral Tablet Extended Release 24 Hour (toPROL XL)Indications:Prim kat hypertension,Athero sclerosis of [place] coronary artery of [place] heart without angina pectoris,Essential hypertension with goal blood pressure less than 140/90 Take 1 Tablet by mouth in the morning. 90 Tablet 3 11/20/2022 Active Pantoprazole Sodium 40 MG Oral Tablet Delayed Release (Protonix)Indicatio ns:Gastric ulcer without hemorrhage or perforation, unspecified chronicity,Gastroes ophageal reflux disease with esophagitis without hemorrhage Take 1 Tablet by mouth in the morning and 1 Tablet before bedtime. 180 Tablet 1 11/20/2022 Active documented as of this encounter (statuses as of 12/07/2022) Active Problems Problem Noted Date Current moderate episode of major depressive disorder [...] course, and prognosis "RED FLAG" HF Symptoms: o Leg Swelling (Examples: "I can't wear certain socks or shoes", "My pants feel tight") o Increased dyspnea on exertion (Example: "I can't walk to the kitchen or up the stairs") Current Heart Failure Classifications: o No symptoms ([place] [employer] CLASS I) Diagnostic Review: Recent Labs Units 07/27/22 1142 07/06/22 1339 07/14/21 1459 BNP (NT-PRO-BNP) - [facility] pg/mL -- -- 3,432* ESTIMATED GLOMERULAR FILTRATION RATE - [facility] mL/min 22* 29* 44* HGB - [facility] g/dL -- 11.6* -- Medication Regimen: o Beta Sha Therapy: Metoprolol Succinate (ER) o VIKKI Inhibitor/ARB Therapy: Other: none o Diuretic therapy: Torsemide Self - Management Plan o Double dose of Torsemide for 3 days Exacerbation Plan o BMP o Pro-BNP Spondylosis of lumbar region without mye lopathy or radiculopathy 07/27/2021 Last Assessment & Plan: [...] fibrillation 03/01/2021 Overview: new onset, [facility] on apixaban Last Assessment & Plan: Rate controller. Regular today -continue eliquis and metoprolol Greater trochanteric bursitis of right h ip 11/03/2020 History of gastric ulcer 11/02/2020 Aortic ectasia, thoracic 11/01/2020 Other idiopathic scoliosis, thoracolumba r region 11/01/2020 Bilateral shoulder region arthritis 03/23 DDD (degenerative disc disease), lumbar 04/16/2017 Last Assessment & Plan: Stable -CONSIDER D/CE [...] Low back pain radiating to left leg 02/20 DYSLIPIDEMIA, GOAL LDL BELOW 100 009 Overview: Per Lipid Taxonomy. Last Assessment & Plan: Due for updated labs. Continue rosuvastatin ADVANCE DIRECTIVE INFORMATION 07/13/2004 Overview: No, Advance Directive brochure given to patient. GENERAL OSTEOARTHROSIS 03/18/2004 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[place] co ronary artery of [place] heart without angina pectoris Last Assessment & Plan: Stable no angina -continue rosuvastatin, metopropolol, Anxiety state Last Assessment & Plan: Stable on buspar, Primary hypertension Gastroesophageal reflux disease with eso phagitis without hemorrhage Last Assessment & Plan: symptoms controlled on pantoprazole Scoliosis of lumbar spine Mixed incontinence urge and stress (male )(female) documented as of this encounter (statuses as of 12/07/2022) Resolved Problems Problem Noted Date Resolved Date Meningioma, cerebral 07/16/2022 08/02/2022 Overview: small frontal cortex meningioma without mass effect Migraine without aura and wi thout status migrainosus, not intractable 03/31/2022 03/31/2022 Major depressive disorder wi th single episode, in partial remission 03/31/2022 07/27/2022 Chronic diastolic CHF (conge stive heart failure), NYHA class 1 03/31/2021 07/27/2021 Chronic narcotic dependence 11/10/202012/21 Closed fracture of one rib of right side with no nunion 11/01/2020 02/23/2021 Chronic kidney disease, stage 3b 08/03/2020 07/27/2021 Overview: Per CKD protocol Benign hypertension with stage 3b chronic kidney disease 06/29/2020 05/04/2022 Overview: Per CKD protocol Last Assessment & Plan: BP at goal at metoprolol Acquired hypothyroidism 01/19/2016 01/19/20 16 Gastric ulcer 06/30/2014 06/26/2017 Overview: hgb 7.4 admitted [facility] CKD (chronic kidney disease) stage 3, GFR 30-59 ml/min 07/03/2013 05/07/2014 Overview: GFR 36.9 Kidney disease, chronic, stage III (GFR 30-59 ml /min) 07/28/2007 06/01/2017 Anticoagulation management encounter 09/09/2002 02/25/2014 Retinal detachment of both eyes with multiple re tinal tears 05/29/2002 05/16/2018 Dyslipidemia, goal to be determined 08/20/2000 01/28/2009 Overview: Per Lipid Taxonomy. Hypothyroidism 08/20/2000 01/19/2016 Adjustment disorder with depressed mood 03/13/2019 MEDICATION USE AGREEMENT 022 Cataract cortical, senile 2017 Benign hypertension with CKD (chronic kidney disease) stage III 07/01/2020 Overview: Per CKD protocol Major depression, single episode 07/27/2022 Last Assessment & Plan: Denies depression. Stable Continue remeron documented as of this encounter (statuses as of 12/07/2022) Immunizations Name Administration Dates Next Due COVID-19 [...] pur e alcohol) OCC-- 2oz per week Food Insecurity Answer Date Recorded Within the past 12 months, y ou worried that your food would run out before you got money to buy more. Never true 06/16/2019 Within the past 12 months, t he food you bought just didn't last and you didn't have money to get more. Never true 06/16/2019 Sex Assigned at Date Recorded Not on file Job Start Date Occupation Industry Not on file Not on file Not on file documented as of this encounter Miscellaneous Notes * Telephone Encounter - Matt Ellsworth DO - 12/07/2022 11:41 AM EDT Agree with visit today. * Telephone Encounter - Lindsay Giordano RN - 12/07/2022 10:39 AM EDT Images from the original note were not included. Communication Note Name: Zoya Howard Situation: PC from patient requesting a nurse states she doesn't feel well all over and has been nauseated since yesterday. Someone speaking in the background patient called EMS thinking she was calling [facility] Spoke with EMT and patient. She is declining ED at this time Per EMT patient seems dehydrated but vitals stable Background: CHF ,CKD,AFIB,GERD,anxiety Assessment: s/s started yesterday + heavy breathing/SOB + anxious + minor left ankle swelling. No weights + nausea (didn't know she has zofran to take. States she doesn't have it in the home. States she doesn't know what she has ) + general malaise + lightheaded + weakness + diarrhea x 1. Color unknown. Started this am Vitals per EMS: no temp, BP 130/98, HR 98, RR 18, O2sat 98% RA Urination WNL Did not take morning meds. Could not Denies fevers,,CP,vomiting. Repetatively keeps asking for a nurse Recommendation: HV for eval Care team availability: GPS (location): [place] Acute nurse: none [facility]: not availb [place] \\[facility] district extension service agent Acute Call Date: 12/07/2022 Time: 11:01 AM Name: Zoya Howard : 1938 Caller: yolanda Relationship to self HPI: Zoya Howard is a 84 year old female. PC from patient requesting a nurse states she doesn't feel well all over and has been nauseated since yesterday. Someone speaking in the background patientcalled EMS thinking she was calling [facility] Spoke with EMT and patient. She is declining ED at this time Per EMT patient seems dehydrated but vitals stable Background: CHF ,CKD,AFIB,GERD,anxiety ROS: s/s started yesterday + heavy breathing/SOB + anxious + minor left ankle swelling. No weights + nausea (didn't know she has zofran to take. States she doesn't have it in the home. States she doesn't know what she has ) + general malaise + lightheaded + weakness + diarrhea x 1. Color unknown. Started this am Vitals per EMS: no temp, BP 130/98, HR 98, RR 18, O2sat 98% RA Urination WNL Did not take morning meds. Could not tell me what meds she has or if she has pill boxes + AMC---baseline noted as 155lbs last weight 162.8lbs Nursing Assessment: Patient's chief complaint for this call: Nausea Pain Denies pain Baseline Assessment Able to performing ADLs at baseline (walking, daily tasks, etc.): Yes but weak. States in bed except to use the bathroom Chief Complaint is related to a chronic condition: Unknown Patient prescribed oxygen? No Patient has been ordered DME equipment (assistive devices, respiratory equipment, etc.): No Medication Reconciliation: Received flu shot this season: No Taking medication as ordered: No, states she did not take am meds today Medications ordered/taking to treat reason for call: Unknown zofran on med list but pt states she doesn't have it Heart failure symptoms: Unknown COPD exacerbation symptoms: No Reinforcement Education: Stay hydrated with water as tolerated Follow all dietary restrictions Rest until eval Fall precautions PC to [facility] they will refill zofran Teams and SBAR sent to business operations consultant Prema and RNCM Kade Lieberman to assist with scheduling HV Per AUBREY lieberman to call patient and meat pickler zofran Treatment/Plan: Level of call: Acute Appointment scheduled for same day: yes Provider Name: Sarthak Lieberman Treatment plan until appointment: to [facility] for recommendations 24/48hr calls Call back instructions provided to patient. Lindsay Giordano RN, BSN GAH piano moverNational Sales Trainer documented in this encounter Plan of Treatment Upcoming Encounters Date Type Specialty Care Team Description 12/09/2022 Scheduled Telephone [facility], Nurse [address] [place] [address] 12/10/2022 Scheduled Telephone [facility], Nurse [address] [place] [address] 12/12/2022 Telemedicine [facility] Anna Claudio CRNP [address] [place] [address] Ashley Castaneda, Community Health Electronic Installer [address] [place] [address] [place] [address] 12/12/2022 Office Visit Family Medicine Con Coughlin MD [address] [place] [address] [place] [address] 12/28/2022 Home Visit [facility] Lana Lieberman RN 132 [place] [address] 01/29/2023 Office Visit Family Con Borges MD [address] [place] [address] [place] [address] 04/13/2023 Office Visit Family Medicine Marla Tan MD [address] [place] [address] [place] [address] Health Maintenance Due Date Last Done Comments [...] Additional history exists CKD HGB USE SMARTSET 99103 10/05/202310/04, 10/04/2022, 07/06/2022, Additional history exists CKD PHOS USE SMARTSET 93247 10/05/202309/19, 06/08/2021, 09/07/2020, Additional history exists Pneumococcal [...] filedocumented as of this encounter Care Teams Die Welder Relationship Specialty Start Date End Date Con Coughlin MD [address] [place] [address] [place] [address] PCP - General Family Medicine 06/30/14 documented as of this encounter
--- OUTSIDE RECORDS SUMMARY | 2023-01-29 20:09 | External Medical Summary | Summary of Care ---
Author Name Unknown Organization [facility] Address [address] [place] [address] Phone [phone] Care Team Providers Care Air Bag Buffer Name Role Phone Con Coughlin MD Primary Care Provider [phone] Reason for Visit * Reason Onset Date Comments [facility]: Maintenance 12/15/2022 Encounter Details Date Type Department Care Team (Late st Contact Info) Description 12/15/2022 Telephone [facility], [facility] [address] [facility] [place] [address] [facility], Nurse [address] [place] [address] [facility]: Maintenance Allergies Active Allergy Reactions Criticality Noted Date Comments Ergotamine 03/01/2000 vomit Nitroglycerin 03/14/2007 vomitting documented as of this encounter (statuses as of 12/15/2022) Medications Medication Sig Dispensed Refills Start Date [...] Hour (toPROL XL)Indications:Prim kat hypertension,Athero sclerosis of [place] coronary artery of [place] heart without angina pectoris,Essential hypertension with goal [...] as of this encounter (statuses as of 12/15/2022) Active Problems Problem Noted Date Diagnosed Date Current moderate episode of major depressive [...] o Pro-BNP Spondylosis of lumbar region without myelopathy or [...] her pain concerns. She is aware [facility] does not manage chronic pain meds. With her history of confusion, would recommend against use of narcotic medication. Mild aortic stenosis 07/27/2021 Last Assessment & Plan: Following with cardiology Aortocoronary bypass status 03/09/2021 Chronic atrial fibrillation 03/01/2021 Overview: new onset, [facility] on apixaban Last Assessment & Plan: Rate controller. Regular today -continue eliquis and metoprolol Greater trochanteric bursitis of right hip 11/03 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[place] co ronary artery of [place] heart without angina pectoris Last Assessment & Plan: Stable no angina -continue rosuvastatin, metopropolol, Anxiety state Last Assessment & Plan: Stable on buspar, Primary hypertension Gastroesophageal reflux dise ase with esophagitis without hemorrhage Last Assessment & Plan: symptoms controlled on pantoprazole Scoliosis of lumbar spine Mixed incontinence urge and stress (male)(female ) documented as of this encounter (statuses as of 12/15/2022) Resolved Problems Problem Noted Date Diagnosed Date [...] 06/30/2014 06/26/2017 Overview: hgb 7.4 admitted [facility] CKD (chronic kidney disease) stage 3, [...] as of this encounter (statuses as of 12/15/2022) Immunizations Name Administration Dates Next Due COVID-19 [...] encounter Miscellaneous Notes * Telephone Encounter - Komal Escudero RN - 12/15/2022 11:38 AM EDT Pt is calling [facility] to find out who is calling her and hanging up. Chart reviewed. Pt has appt with Anna archibald today for video visit. TT to Nana who reports she is not trying to call pt. TT to KARELY Castaneda and La Andersen-,No response back. Advised pt that she has appt today which she did nt know. Advised pt to call back [facility] if no one arrives to her home for appt. Pt will do this. Komal Escudero RN [facility] Intake Triage Coordinator [phone] documented in this encounter Plan of Treatment Upcoming Encounters Date Type Department Care Team (Late st Contact Info) Description 12/15/2022 12:00 PM EDT Telemedicine [facility], [facility] [place] [address] [facility] [place] [address] Anna Archibald CRNP [address] [place] [address] Ashley Castaneda, [facility] Front End Technician [address] [place] [address] [place] [address] 12/18/2022 11:20 AM EDT Office Visit Family Medicine [address] [place] [phone] Con Coughlin MD [address] [place] [address] [place] [address] 12/28/2022 4:00 PM EST Home Visit [facility], [facility] [place] [address] [place] [address] Lana Lieberman, KHARI [address] [place] [address] 01/29/2023 12:00 PM EST Office Visit [address] [phone] Con Coughlin MD [address] [place] [address] [place] [address] 04/13/2023 3:40 PM EST Office Visit [address] [place] [phone] Marla Tan MD [address] [place] [address] [place] [address] Health Maintenance Due Date Last Done Comments [...] Additional history exists CKD HGB USE SMARTSET 73651 10/05/202310/04, 10/04/2022, 07/06/2022, Additional history exists CKD PHOS USE SMARTSET 02753 10/05/2023 0807/2022, 06/08/2021, 09/07/2020, Additional history exists Pneumococcal Vaccine: [...] filedocumented as of this encounter Care Teams Air Bag Buffer Relationship Specialty Start Date End Date Con Coughlin MD [address] [place] [address] [place] [address] PCP - General Family Medicine 06/30/14 documented as of this encounter
--- OUTSIDE RECORDS SUMMARY | 2023-01-29 20:09 | External Medical Summary | Summary of Care ---
Author Name Unknown Organization [facility] Address [address] [place] [address] Phone [phone] Care Team Providers Care Broom Builder Name Role Phone Con Coughlin MD Primary Care Provider Reason for Visit * Reason Onset Date Comments Advice 12/23/2022 Encounter Details Date Type Department Care Team (Late st Contact Info) Description 12/23/[address] [place] [phone] Con Coughlin MD [address] [place] [address] [place] [address] Advice Allergies Active Allergy Reactions Criticality Noted [...] discuss her pain concerns. She is aware [facility] does not manage chronic pain meds. With her history of confusion, would recommend against use of narcotic medication. Mild aortic stenosis 07/27/2021 Last Assessment & Plan: Following with cardiology Aortocoronary bypass status 03/09/2021 Chronic atrial fibrillation 03/01/2021 Overview: new onset, [facility] on apixaban Last Assessment & [...] joint replacement status 09/09/2002 Atherosclerosis of [place] co ronary artery of [place] heart without angina pectoris Last Assessment & [...] ulcer 06/30/2014 06/26/2017 Overview: hgb 7.4 admitted [facility] CKD (chronic kidney disease) stage [...] encounter Miscellaneous Notes * Telephone Encounter - Danyelle Hawk PA-C - 12/23/2022 2:31 PM EDT aGree with advice Danyelle Hawk PA-C * Telephone Encounter - Zoya Nails LPN - 12/23/2022 1:15 PM EDT Patient states sore throat, fever, headache. Denies cough, denies sob denies chest pain. Denies problems with urination or no N/V/D. Advised to go to [facility] in [place]. Patient is aware and will comply. Thank you * Telephone Encounter - Rex Monsivais OSA - 12/23/2022 12:29 PM EDT Patient called to report having these symptoms headache, burning eyes and fever. Patient requested a call back if possible at Contact . #[phone] documented in this encounter Plan of Treatment Upcoming Encounters Date Type Department Care Team (Late st Contact Info) Description 12/28/2022 4:00 PM EST Home Visit [facility], [facility] [place] [address] Lana Lieberman, KHARI [address] [place] [address] 01/22/2023 1:00 PM EST Office Visit Nephrology [address] [place] [address] June Jade MD [address] [place] [address] 01/29/2023 12:00 PM EST Office Visit Family Medicine [address] [phone] Con Coughlin MD [address] [place] [address] [place] [address] 04/13/2023 3:40 PM EST Office Visit Family [address] [phone] Marla Tan MD [address] [place] [address] [place] [address] Health Maintenance Due Date Last Done Comments [...] Additional history exists CKD HGB USE SMARTSET 63635 10/05/202310/04, 10/04/2022, 07/06/2022, Additional history exists CKD PHOS USE SMARTSET 83412 10/05/202309/19, 06/08/2021, 09/07/2020, Additional history exists Pneumococcal [...] filedocumented as of this encounter Care Teams Broom Builder Relationship Specialty Start Date End Date Con Coughlin MD [address] [place] [address] [place] [phone] PCP - General Family Medicine 06/30/14 documented as of this encounter
--- OUTSIDE RECORDS SUMMARY | 2023-01-29 20:09 | External Medical Summary | Summary of Care ---
Author Name Unknown Organization [facility] Address [address] [place] [address] Phone [phone] Care Team Providers Care Repair Technician Name Role Phone Con Coughlin MD Primary Care Provider [phone] Reason for Visit * Reason Onset Date Comments Follow Up 12/15/2022 Encounter Details Date Type Department Care Team (Late st Contact Info) Description 12/15/2022 Telephone Care Coordination [address] [place] [address] Ashley Castaneda [facility] [address] [place] [address] Follow Up Allergies Active Allergy Reactions Criticality Noted Date Comments Ergotamine 03/01/2000 vomit Nitroglycerin 03/14/2007 vomitting documented as of this encounter (statuses as of 12/15/2022) Medications Medication Sig Dispensed Refills Start Date End Date Status Acetaminophen 500 MG Oral Tablet (Tylenol) Take 1 Tab by mouth 3 times a day. 100 Tab 0 11/12/2020 Active Polyethylene Glycol 3350 17 GM/SCOOP Oral Powder (MiraLax) Take 17 g by mouth as needed for Constipation. Dissolve one heaping tablespoon in 8 ounces of water or juice. 225 g 3 08/02/2022 Active Additional Information Patient not taking.Reported on 11/29/2022 Eliquis 5 MG Oral Tablet Take 1 [...] Hour (toPROL XL)Indications:Prim kat hypertension,Athero sclerosis of [place] coronary artery of [place] heart without angina pectoris,Essential hypertension with goal [...] managing provider. 1 Each 0 12/15/2022 Active documented as of this encounter (statuses as of 12/15/2022) Active Problems Problem Noted Date Diagnosed Date Hypercalcemia 12/15/2022 Last Assessment & Plan: No longer on supplementation. Follow up with nephrology Current moderate episode of major depressive disorder [...] Chronic atrial fibrillation 03/01/2021 Overview: new onset, [facility] on apixaban Last Assessment & 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[place] co ronary artery of [place] heart without angina pectoris Last Assessment & [...] ulcer 06/30/2014 06/26/2017 Overview: hgb 7.4 admitted [facility] CKD (chronic kidney disease) stage [...] encounter Miscellaneous Notes * Telephone Encounter - Ashley Castaneda [facility] Customer Service Leader - 12/15/2022 4:01 PM EDT Call to [place] [facility] office re: increasing service hours. Provided KARELY name/number. Awaiting CB. documented in this encounter Plan of Treatment Upcoming Encounters Date Type Department Care Team (Late st Contact Info) Description 12/18/2022 11:20 AM EDT Office Visit [address] [phone] Con Coughlin MD [address] [place] [address] [place] [address] 12/28/2022 4:00 PM EST [facility] Visit [facility] [address] [facility] [place] [address] Lana Lieberman, KHARI [facility] [place] [address] 01/29/2023 12:00 PM EST Office Visit [address] [phone] Con Coughlin MD [address] [place] [address] [place] [address] 04/13/2023 3:40 PM EST Office Visit Family Medicine [address] [place] [phone] Marla Tan MD [address] [place] [address] [place] [address] Health Maintenance Due Date Last Done Comments [...] Additional history exists CKD HGB USE SMARTSET 24338 10/05/202310/04, 10/04/2022, 07/06/2022, Additional history exists CKD PHOS USE SMARTSET 46690 10/05/202309/19, 06/08/2021, 09/07/2020, Additional history exists Pneumococcal [...] filedocumented as of this encounter Care Teams Repair Technician Relationship Specialty Start Date End Date Con Coughlin MD [address] [place] [address] [place] [address] PCP - General Family Medicine 06/30/14 documented as of this encounter
--- OUTSIDE RECORDS SUMMARY | 2023-01-29 20:09 | External Medical Summary | Summary of Care ---
Author Name Unknown Organization [facility] Address [address] [place] [address] Phone [phone] Care Team Providers Care Electrical Estimator Name Role Phone Con Coughlin MD Primary Care Provider [phone] Reason for Visit * Reason Onset Date Comments Appointment 12/12/2022 Hospital follow up appointment Encounter Details Date Type Department Care Team (Late st Contact Info) Description 12/12/2022 Telephone General Internal Medicine [facility] [address] [facility] [place] [address] Con Coughlin MD [address] [place] [address] [place] [address] Appointment (Hospital follow up appointment) Allergies Active Allergy Reactions Criticality Noted Date Comments Ergotamine 03/01/2000 vomit Nitroglycerin 03/14/2007 vomitting documented as of this encounter (statuses as of 12/13/2022) Medications Medication Sig Dispensed Refills Start Date [...] Hour (toPROL XL)Indications:Prim kat hypertension,Athero sclerosis of [place] coronary artery of [place] heart without angina pectoris,Essential hypertension with goal [...] as of this encounter (statuses as of 12/13/2022) Active Problems Problem Noted Date Diagnosed Date [...] discuss her pain concerns. She is aware [facility] does not manage chronic pain meds. With her history of confusion, would recommend against use of narcotic medication. Mild aortic stenosis 07/27/2021 Last Assessment & Plan: Following with cardiology Aortocoronary bypass status 03/09/2021 Chronic atrial fibrillation 03/01/2021 Overview: new onset, [facility] on apixaban Last Assessment & Plan: Rate 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[place] co ronary artery of [place] heart without angina pectoris Last Assessment & Plan: Stable no angina -continue rosuvastatin, metopropolol, Anxiety state Last Assessment & Plan: Stable on buspar, Primary hypertension Gastroesophageal reflux dise ase with esophagitis without hemorrhage Last Assessment & Plan: symptoms controlled on pantoprazole Scoliosis of lumbar spine Mixed incontinence urge and stress (male)(female ) documented as of this encounter (statuses as of 12/13/2022) Resolved Problems Problem Noted Date Diagnosed Date [...] hgb 7.4 admitted [facility] CKD (chronic kidney disease) stage 3, GFR [...] as of this encounter (statuses as of 12/13/2022) Immunizations Name Administration Dates Next Due COVID-19 [...] encounter Miscellaneous Notes * Telephone Encounter - TAM Cuellar - 12/13/2022 1:43 PM EDT Lvm to schedule dax * Telephone Encounter - Yessica Ellison LPN - 12/12/2022 3:15 PM EDT Schedulers- please contact pt to schedule a hospital discharge appointment with either Dr Jade or Dr Shah in about 2 weeks. Please remind her to complete labs before visit. Thanks. * Telephone Encounter - Tulio Laughlin RN - 12/12/2022 2:55 PM EDT Patient discharged home today from [facility]. Nephrology consulted and recommend: appt w/ me( Dr Jade) or Dr Shah about 2 wks after discharge with PTH, iCa, BMP to be ordered by renal nurse and drawn about 3 days prior to visit. Please assist with these discharge recommendations. Thank you documented in this encounter Plan of Treatment Upcoming Encounters Date Type Department Care Team (Late st Contact Info) Description 12/13/2022 3:30 PM EDT Scheduled Telephone [facility] [address] [place] [address] Coordinator, [facility] [address] [place] [address] 12/15/2022 12:00 PM EDT Telemedicine [facility] [address] [place] [address] Anna Claudio CRNP [address] [place] [address] Ashley Castaneda, [facility] Leather Products Supervisor [address] [place] [address] [place] [address] 12/18/2022 11:20 AM EDT Office Visit [address] [phone] Con Coughlin MD [address] [place] [address] [place] [address] 12/28/2022 4:00 PM EST Home Visit [facility] [address] [place] [address] Lana Lieberman RN [address] [place] [address] 01/29/2023 12:00 PM EST Office Visit [address] [phone] Con Coughlin MD [address] [place] [address] [place] [address] 04/13/2023 3:40 PM EST Office Visit [address] [phone] Marla Tan MD [address] [place] [address] [place] [phone] Scheduled Orders Name Type Priority Associated Diagnoses Orde r Schedule PTH Lab Routine Hypertensive heart and kidney disease with chronic diastolic congestive heart failure and stage 3b chronic kidney disease (HCC) Expected: 12/12/2022 (Approximate), Expires: 12/13/2023 BASIC METABOLIC PANEL Lab Routine Hypertensive heart and kidney disease with chronic diastolic congestive heart failure and stage 3b chronic kidney disease (HCC) Expected: 12/12/2022 (Approximate), Expires: 12/13/2023 CALCIUM, IONIZED Lab Routine Hypertensive heart and kidney disease with chronic diastolic congestive heart failure and stage 3b chronic kidney disease (HCC) Expected: 12/12/2022 (Approximate), Expires: 12/13/2023 Health Maintenance Due Date Last Done Comments [...] Additional history exists CKD HGB USE SMARTSET 13807 10/05/202310/04, 10/04/2022, 07/06/2022, Additional history exists CKD PHOS USE SMARTSET 55538 10/05/202309/19, 06/08/2021, 09/07/2020, Additional history exists Pneumococcal [...] as of this encounter Visit Diagnoses Diagnosis Hypertensive heart and kidney disease with chronic diastolic congestive heart failure and stage 3b chronic kidney disease (HCC)- Primary documented in this encounter Care Teams Electrical Estimator Relationship Specialty Start Date End Date Con Coughlin MD [address] [place] [address] [place] [address] PCP - General Family Medicine 06/30/14 documented as of this encounter
--- OUTSIDE RECORDS SUMMARY | 2023-01-29 20:09 | External Medical Summary | Summary of Care ---
Author Name Unknown Organization [facility] Address [address] [place] [address] Phone [phone] Care Team Providers Care Drier Take Off Tender Name Role Phone Con Coughlin MD Primary Care Provider Reason for Visit * Reason Comments [facility]: Telehealth Encounter Details Date Type Department Care Team (Late st Contact Info) Description 12/15/2022 12:00 PM EDT Telemedicine [facility], [facility] [address] [facility] [address] Anna Claudio CRNP [address] [facility] [address] Ashley Castaneda, Community Health Player Piano Technician [address] [place] [address] [place] [phone] Chronic atrial fibrillation (HCC)*; Hypertensive heart and kidney disease with chronic diastolic congestive heart failure and stage 3b chronic kidney disease (HCC); Hypercalcemia Allergies Active Allergy Reactions Criticality Noted Date Comments Ergotamine 03/01/2000 vomit Nitroglycerin 03/14/2007 vomitting documented as of this encounter (statuses as of 12/15/2022) Medications Medication Sig Dispensed Refills Start Date End Date Status Acetaminophen 500 MG Oral Tablet (Tylenol) Take 1 Tab by mouth 3 times a day. 100 Tab 0 1 Active Polyethylene Glycol 3350 17 GM/SCOOP Oral Powder (MiraLax) Take 17 g by mouth as needed for Constipation. Dissolve one heaping tablespoon in 8 ounces of water or juice. 225 g 3 3 Active Additional Information Patient not taking.Reported on 11/29/2022 Eliquis 5 MG Oral Tablet Take 1 Tablet by mouth in the morning and 1 Tablet before bedtime. 0 3 Active busPIRone HCl 10 MG Oral Tablet (Buspar)Indicati ons:Anxiety state TAKE ONE TABLET BY MOUTH TWICE DAILY 60 Tablet 5 3 Active Gabapentin 300 MG Oral Capsule (Neurontin)Indic ations:DDD (degenerative disc disease), lumbar Take 1 Capsule by mouth in the morning and 1 Capsule at noon and 1 Capsule before bedtime. 90 Capsule 5 3 Active traZODone HCl 100 MG Oral Tablet (Desyrel)Indicat ions:Persistent insomnia One at bedtime 30 Tablet 5 3 Active Loperamide HCl 2 MG Oral Tablet (Imodium A-D)Indications: Chronic diarrhea One tablet four times a day as needed 60 Tablet 1 3 Active Ondansetron HCl 4 MG Oral Tablet (Zofran)Indicati ons:Nausea TAKE ONE TABLET BY MOUTH EVERY 6 HOURS NEEDED FOR nausea 30 Tablet 1 3 Active Levothyroxine Sodium 100 MCG Oral Tablet (Levoxyl) Take 1 Tablet by mouth in the morning. (at least 30 min prior to breakfast or other meds). 90 Tablet 3 3 Active Rosuvastatin Calcium 10 MG Oral Tablet (Crestor)Indicat ions:Dyslipidemi a, goal LDL below 100 Take 1 Tablet by mouth daily. 90 Tablet 0 3 Active Metoprolol Succinate ER 25 MG Oral Tablet Extended Release 24 Hour (toPROL XL)Indications:P rimary hypertension,Ath erosclerosis of [place] coronary artery of [place] heart without angina pectoris,Essenti al hypertension with goal blood pressure less than 140/90 Take 1 Tablet by mouth in the morning. 90 Tablet 3 3 Active Pantoprazole Sodium 40 MG Oral Tablet Delayed Release (Protonix)Indica tions:Gastric ulcer without hemorrhage or perforation, unspecified chronicity,Gastr oesophageal reflux disease with esophagitis without hemorrhage Take 1 Tablet by mouth in the morning and 1 Tablet before bedtime. 180 Tablet 1 3 Active DIURETIC TITRATION PLAN If no improvement on day 3, contact heart failure managing provider. 1 Each 0 3 Active Diphenoxylate-At ropine 2.5-0.025 MG Oral Tablet Take by mouth every 4 hours as needed for Diarrhea. Patient taking 1-2 tabs every 4 hours for diarrhea. 0 12/16/19 23 Discontinued amLODIPine Besylate 5 MG Oral Tablet (Norvasc) Take 1 Tablet by mouth in the morning. 0 12/16/19 23 Discontinued(Med ication List Clean Up) documented as of this encounter (statuses as [...] her pain concerns. She is aware [facility] does not manage chronic pain meds. With her history of confusion, would recommend against use of narcotic medication. Mild aortic stenosis 07/27/2021 Last Assessment & Plan: Following with cardiology Aortocoronary bypass status 03/09/2021 Chronic atrial fibrillation 03/01/2021 Overview: new onset, [facility] on apixaban Last Assessment & Plan: Her 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[place] co ronary artery of [place] heart without angina pectoris Last Assessment & [...] ulcer 06/30/2014 06/26/2017 Overview: hgb 7.4 admitted [facility] CKD (chronic kidney disease) stage 3, GFR [...] Sign Reading Time Taken Comments Blood Pressure 118/62 12/15/2022 12:28 PM EDT Pulse 98 12/15/2022 12:28 PM EDT Temperature 37 C (98.6 F) 12/15/2022 12:28 PM EDT Respiratory Rate 22 12/15/2022 12:28 PM EDT Oxygen Saturation 98% 12/15/2022 12:28 PM EDT Inhaled Oxygen Concentration - - Weight 72.1 kg (159 lb) 12/15/2022 12:28 PM EDT Height - - Body Mass Index 30.04 07/06/2022 1:08 PM EDT documented in this encounter Progress Notes * Ashley Castaneda, Community Health Player Piano Technician - 12/15/2022 3:48 PM EDT Community Health Player Piano Technician Visit Date: 12/15/2022 Time: 12:00 PM Name: Zoya Howard : 1938 Referral Source: Provider Source of Information: Patient Spoken language: Cambodian Patient can read in Cambodian: Yes. Nitroglycerin Nitrator Operator Batch needed: No. COVID-19 screening completed: Yes Vitals: Vital signs completed: Yes, vital signs within normal range. BP 118/62 | Pulse 98 | Temp 37 C (98.6 F) | Resp 22 | Wt 72.1 kg (159 lb) | SpO2 98% | BMI 30.04 kg/m | BSA 1.76 m Condition Changes: Changes in health or social status since last visit: [facility] home visit for telemed with [facility] provider. Patient recently DC from [facility]. The patient has new concerns since last visit: Yes, patient reports she is weak, not feeling well. Not specific on symptoms. States she keeps drinking coffee "to pep me up". Asked patient what else she has had to eat/drink. Patient states she's had noting else so far today. Poured patient a glass of water. Advised patient to drink at least four glasses a day to prevent dehydration. Patient statesshe will do this and see if she feels any better. Advised patient to call in to [facility] with any new orworsening symptoms. Patient verbalized understanding. Progress towards goals since last visit: no evidence of fluid retention at time of visit. Goals: To stay in her own apartment- resolved Keep fluid under control- continue working on Get medications organized- resolved Medications: Medication review completed? Yes, no gaps identified Does the patient have barriers to medication adherence? No. Patient reports difficulty paying for medications or might in the future: No. Telehealth: This is a telehealth visit: Yes. Type of telehealth visit: Return/Routine Visit conducted with: Physician/AP Symptoms Surveys and Evaluations: MAHC10 completed this visit: Yes. Score is 4 or more? No Last flowsheet values for MAHC10: Age 65+: 1 (07/24/2022 2:00 PM) Diagnosis (3 or more co-existing): 1 (07/24/2022 2:00 PM) Prior history of falls within 3 months: 0 (07/24/2022 2:00 PM) Incontinence: 0 (07/24/2022 2:00 PM) Visual impairment: 0 (07/24/2022 2:00 PM) Impaired functional mobility: 1 (07/24/2022 2:00 PM) Environmental hazards: 0 (07/24/2022 2:00 PM) Poly Pharmacy (4 or more prescriptions - any type): 1 (07/24/2022 2:00 PM) Pain affecting level of function: 0 (07/24/2022 2:00 PM) Cognitive impairment: 0 (07/24/2022 2:00 PM) Score - a score of 4 or more is considered at risk for fallin (07/24/2022 2:00 PM) Social Determinants of Health: Safety: Patient reports feeling unsafe in their home: No. Housing: Patient reports they are at risk of becoming homeless: No. Home/Living situation: Patient lives alone: Yes Bathroom is located 1 Bedroom is located 1 Patient has to go up and down steps: No. Patient receives help from family/friends/neighbors/community agencies etc.: Yes. Type of help the patient receives: has caregivers coming in 2 days/week. Patient perceives the helpthey receive as adequate: No. Specify plan/referrals/care team members notified: Interested in increasing these hours. Patient states she will pay for services. KARELY placed call to aging office. Left message for healthcare corporate account director advising patient wanting more hours, and is willing to pay out of pocket. DME: DME used: [employer] Patient has concerns related to DME: No. Financial: Patient reports experiencing a financial hardship: No. Employment: Patient is unemployed or without regular income: No. Utilities: Patient reports difficulty paying heating, water, or electric bill: No. Transportation: Patient drives: Yes. Does anyone drive patient to appointments and shopping? No. Patient receives community or public transportation assistance: Yes. Specify agency: enrolled with [employer]. States she may start using this more often. Patient reports trouble getting a ride to medical visits or work: Never True. Clothing: Patient reports being unable to get clothing when it was really needed: No. Food insecurity: Patient has concerns surrounding meals/food: No. Within the past 12 months patient worried food would run out before having money to buy more: Never True. Within the past 12 months the food patient bought did not last and did not have money to get more: Never True Food is needed for this week: No. Caregiver/Childcare: Patient feels overwhelmed with taking care of a child, family member or friend: No. If caregiver is present, patient reports adequate support: Yes. Connections: How often do you feel lonely or isolated from those around you? Never. Plan: Reinforced patient's three red flags by the care team 1. Dizziness 2. SOB, increased swelling, weight gain greater than 2# in 24 hours. 3. Medication questions/concerns Follow Up: Patient encouraged to call the intake phone number for all urgent but not emergent issues. Scheduled to follow up with patient in as needed. Ashley Castaneda Community Health Player Piano Technician 12/15/2022 12:00 PM Electronically signed by Ashley Castaneda [facility] Health Player Piano Technician at 12/15/2022 4:01 PM EDT * Anna Claudio CRNP - 12/15/2022 12:00 PM EDT Images from the original note were not included. [facility] Problem [facility] Provider Visit Date: 12/15/2022 Time: 12:[address] [facility] Sub-Program: Short-Term Management (less than 3 months) [facility] Episode Start Date: Noted: 07/18/2022 Assessment and Plan #1 Chronic atrial fibrillation (HCC) (Primary) Overview: new onset, [facility] on apixaban Assessment & Plan: Her rate is controlled [...] 25 mg daily. Continues apixaban stroke prophylaxis #2 Hypertensive heart and kidney disease with chronic diastolic congestive heart failure and stage 3b chronic kidney disease (HCC) Assessment & Plan: Current Status: "Stable" for [...] stable on AMC. She appears euvolemic today. #3 Hypercalcemia Assessment & Plan: No longer on supplementation. Follow up with nephrology Other orders - DIURETIC TITRATION PLAN; If no improvement on day 3, contact heart failure managing provider. Dispense: 1 Each; Refill: 0 Additional Medical Decision Making: Plan as above. RNCM to monitor. Will recheck in 10-12 weeks viatelemedicine. Check-out note: [facility] scheduling--please schedule 10-12 week telemedicine recheck Scheduled appointments in the next 60 days: Future Appointments-next 60 days Date/Time Provider Specialty Dept Phone 12/15/2022 12:00 PM Ashley Castaneda, [facility] Health Player Piano Technician; Anna Claudio CRNP [facility] [phone] 12/18/2022 11:20 AM (Arrive by 11:05 AM) Con Coughlin MD Family Medicine [phone] 12/28/2022 4:00 PM Lana Lieberman RN [facility] [phone] 01/29/2023 12:00 PM (Arrive by 11:45 AM) Con Coughlin MD Family Medicine [phone] 04/13/2023 3:40 PM (Arrive by 3:25 PM) Marla Tan MD Family Medicine [phone] A total of 25 minutes was spent face to face (via video-based telemedicine if designated as a telemedicine visit) Subjective Subjective Is this a Telemedicine Visit? Yes, Patient location: HOME. I was not in a hospital or clinic location. After connecting through televBullionVaulto, patient was verified with two unique identifiers. Patient (or authorized legal new accounts representative) was then informed that this was a Telemedicine visit and being conducted confidentially over secure lines. Methods to assure confidentiality were taken. Patient acknowledged consent and understanding of privacy and security of the Telemedicine visit. The patient agreed to participate. Reason For [facility] Visit: Transition of Care Current Concerns: Zoya Howard is a 84 year old female seen today for a [facility] provider visit. Past medical history includes hypertension, atrial fib on Eliquis, hyperlipidemia, mild aortic stenosis, CAD with history CABG, CKD 3, hypothyroidism, history gastric ulcer Inpatient at [facility]-admitted 12/07-1023. Per H&P she presented with atypical chest pain, GI distress with nausea dry heaves and feeling unwell. She was in AFib with RVR in the setting of P AFib and went back to normal sinus rhythm after getting 5 mg IV Lopressor. It was noted she had missed 2 days of medication due to not feeling well. CT A/P did not show any acute findings. + hiatal hernia--declined surgical consult. Had echo that was stable. Low suspicion that symptoms cardiac--metoprolol to 50mg, + hypercalcemia 11.6--noted ionized calcium increasing. Nephrology consulted. [place] euvolemic. She is followed by [facility] physician group Cardiology with last appointment 11/30 Today's concerns are: Feels like she is gaining "real wt." Appetite is same but reports she ate a lot in hospital. She had some nausea last night--intermittent for one week. Denies any vomiting. No diarrhea. Formedstool. No abd pain. No fevers. + short of breath, denies any swelling. Has [facility]--12/13--161.6 11/16 161.2lb. She feels like she is "growing" Additional Review of Systems Constitutional: Negative for activity change, appetite change, chills and fever. Respiratory: Positive for shortness of breath. Negative for cough. Cardiovascular: Negative for leg swelling. Gastrointestinal: Negative for abdominal pain, diarrhea, nausea and vomiting. Genitourinary: Negative for difficulty urinating and dysuria. Neurological: Negative for dizziness. Objective Objective Vitals: 12/15/22 1228 Temp: 37 C (98.6 F) Pulse: 98 Resp: 22 SpO2: 98% BP: 118/62 Pulse Readings from Last 5 Encounters: 12/15/22 98 11/29/22 72 11/01/22 80 10/10/22 88 10/04/22 85 ] Last Weights: Wt Readings from Last 3 Encounters: 12/15/22 72.1 kg (159 lb) 11/01/22 74.6 kg (164 lb 6.4 oz) 10/04/22 72.6 kg (160 lb) Last BPs: BP Readings from Last 4 Encounters: 12/15/22 118/62 11/29/22 142/78 11/01/22 132/76 10/10/22 124/62 Physical Exam Vitals reviewed. Constitutional: General: She is not in acute distress. Appearance: She is not toxic-appearing. HENT: Head: Normocephalic. Cardiovascular: Rate and Rhythm: Normal rate. Rhythm irregularly irregular. Pulmonary: Effort: Pulmonary effort is normal. No respiratory distress. Breath sounds: Normal breath sounds. Musculoskeletal: Right lower leg: No edema. Left lower leg: No edema. Skin: Coloration: Skin is not pale. Comments: Venous stasis changes BLE Neurological: Mental Status: She is alert. Mental status is at baseline. Psychiatric: Mood and Affect: Mood normal. Behavior: Behavior normal. Lab Review: I have reviewed the following results: Hgb 13.8 PLT 225 Cr 1.29 BMP results Recent Labs Units 10/04/22 1159 07/27/22 1142 07/06/22 1339 SODIUM - [facility] mmol/L 141 142 141 POTASSIUM - [facility] mmol/L 3.6 4.3 3.9 CHLORIDE - [facility] mmol/L 101 105 102 CO2 - [facility] mmol/L 26 24 28 CREATININE - [facility] mg/dL 1.5* 2.2* 1.7* BUN - [facility] mg/dL 35* 39* 42* Lipid panel resultsNo results for input(s): "CHOL", "LDLCALC", "HDL", "TRIG" in the last 38170 hours. CBC results Recent Labs Units 10/04/22 1159 07/06/22 1339 06/08/21 1520 WBC AUTO - [facility] K/uL 8.75 7.77 6.62 HGB - [facility] g/dL 12.0 11.6* 10.8* HCT - [facility] % 37.5 37.4 34.4* PLATELET AUTO - [facility] K/uL 187 209 144 HbA1c results No results for input(s): "HGBA1C" in the last 41511 hours. TSH results Recent Labs Units 07/27/22 1142 06/08/21 1520 TSH - [facility] uIU/mL 0.34 0.47 Vitamin D results No results for input(s): "25OHVITAMIND" in the last 40230 hours. Hepatic panel results Recent Labs Units 07/06/22 1339 PROTEIN - [facility] g/dL 6.9 BILIRUBIN, TOTAL - [facility] mg/dL 0.3 ALKALINE PHOSPHATASE - [facility] U/L 78 AST - [facility] U/L 21 ALT - [facility] U/L 15 Protein/cr ratio results No results for input(s): "PROCRRATIO" in the last 68097 hours. Medication Review "Bottles Out" medication review performed today and medication list in EMR updated Pill packs EMIR Hewitt 9:30 AM *Communication sent to PCP (via [facility] if [facility]), [facility] Health Care Team members,relevant Specialty Care Physicians* documented in this encounter Miscellaneous Notes * Assessment & Plan Note - Anna Claudio CRNP - 12/15/2022 1:07 PM EDT Associated Problem(s): Hypercalcemia No longer on supplementation. Follow up with nephrology * Assessment & Plan Note - Anna Claudio CRNP - 12/15/2022 1:05 PM EDT Associated Problem(s): Hypertensive heart and kidney disease with chronic diastolic congestive heart failure and stage 3b chronic kidney disease (HCC) Current Status: "Stable" for patient / At [...] stable on AMC. She appears euvolemic today. * Assessment & Plan Note - Anna Claudio CRNP - 12/15/2022 1:03 PM EDT Associated Problem(s): Chronic atrial fibrillation (HCC) Her rate is controlled today. It was recommended while inpatient metoprolol could be increased to 50 mg daily-evidently her BP was elevated at that time as well. Patient reports prior to hospitalization she had not taken medication in over a week. Today her rate is controlled and systolic BP 118. We will continue metoprolol 25 mg daily. Continues apixaban stroke prophylaxis documented in this encounter Plan of Treatment Upcoming Encounters Date Type Department Care Team (Late st Contact Info) Description 12/18/2022 11:20 AM EDT Office Visit Family Medicine [facility] [place] [phone] Con Coughlin MD [address] [place] [address] [place] [phone] 12/28/2022 4:00 PM EST Home Visit [facility], [facility] [address] [place] [address] Lana Lieberman, RN [address] [place] [phone] 01/29/2023 12:00 PM EST Office Visit [address] [phone] Con Coughlin MD [address] [place] [address] [place] [phone] 04/13/2023 3:40 PM EST Office Visit [address] [phone] Marla Tan MD [address] [place] [address] [place] [phone] Health Maintenance Due Date Last Done Comments [...] Additional history exists CKD HGB USE SMARTSET 97248 10/05/202310/04, 10/04/2022, 07/06/2022, Additional history exists CKD PHOS USE SMARTSET 14937 10/05/202309/19, 06/08/2021, 09/07/2020, Additional history exists Pneumococcal [...] as of this encounter Visit Diagnoses Diagnosis Chronic atrial fibrillation (HCC)- Primary Atrial fibrillation Hypertensive heart and kidney disease with chronic diastolic congestive heart failure and stage 3b chronic kidney disease (HCC) Hypercalcemia documented in this encounter Care Teams Drier Take Off Tender Relationship Specialty Start Date End Date Con Coughlin MD [address] [place] [address] [place] [phone] PCP - General Family Medicine 06/30/14 documented as of this encounter
--- OUTSIDE RECORDS SUMMARY | 2023-01-29 20:09 | External Medical Summary | Summary of Care ---
Author Name Unknown Organization [facility] Address [address] [place] [address] Phone [phone] Care Team Providers Care Assistant Executive Housekeeper Name Role Phone Con Coughlin MD Primary Care Provider [phone] Reason for Visit * Reason Onset Date Comments [facility]: Maintenance 12/12/2022 Encounter Details Date Type Department Care Team (Late st Contact Info) Description 12/12/2022 Telephone [facility], [facility] [address] [place] [address] [facility] [address] [place] [address] [facility]: Maintenance Allergies Active Allergy Reactions Criticality Noted Date Comments Ergotamine 03/01/2000 vomit Nitroglycerin 03/14/2007 vomitting documented as of this encounter (statuses as of 12/12/2022) Medications Medication Sig Dispensed Refills Start Date [...] Hour (toPROL XL)Indications:Prim kat hypertension,Athero sclerosis of [place] coronary artery of [place] heart without angina pectoris,Essential hypertension with goal [...] as of this encounter (statuses as of 12/12/2022) Active Problems Problem Noted Date Diagnosed Date [...] pain concerns. She is aware [facility] does not manage chronic pain meds. With her history of confusion, would recommend against use of narcotic medication. Mild aortic stenosis 07/27/2021 Last Assessment & Plan: Following with cardiology Aortocoronary bypass status 03/09/2021 Chronic atrial fibrillation 03/01/2021 Overview: new onset, [facility] on apixaban Last Assessment & 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[place] co ronary artery of [place] heart without angina pectoris Last Assessment & Plan: Stable no angina -continue rosuvastatin, metopropolol, Anxiety state Last Assessment & Plan: Stable on buspar, Primary hypertension Gastroesophageal reflux dise ase with esophagitis without hemorrhage Last Assessment & Plan: symptoms controlled on pantoprazole Scoliosis of lumbar spine Mixed incontinence urge and stress (male)(female ) documented as of this encounter (statuses as of 12/12/2022) Resolved Problems Problem Noted Date Diagnosed Date [...] ulcer 06/30/2014 06/26/2017 Overview: hgb 7.4 admitted [facility] CKD (chronic kidney disease) stage [...] as of this encounter (statuses as of 12/12/2022) Immunizations Name Administration Dates Next Due COVID-19 [...] encounter Miscellaneous Notes * Telephone Encounter - Gila Escalera LPN - 12/12/2022 4:10 PM EDT Patient d/c from [facility] today Telemedicine scheduled SundayDec 15 at 12:00 with Ashley Castaneda and Anna Claudio Left message on mobile number for return call to confirm appointment time Will also add on for FC call tomorrow to confirmation if we do not hear back from patient documented in this encounter Plan of Treatment Upcoming Encounters Date Type Department Care Team (Late st Contact Info) Description 12/13/2022 3:30 PM EDT Scheduled Telephone [facility], [facility] [address] [place] [address] Coordinator, [facility] [address] [place] [address] 12/15/2022 12:00 PM EDT Telemedicine [facility] [address] [place] [address] Anna Claudio CRNP [address] [place] [address] Ashley Castaneda, Community Health Accounting/Finance Tutor [address] [place] [address] [place] [address] 12/18/2022 11:20 AM EDT Office Visit Family Medicine [address] [place] [phone] Con Coughlin MD [address] [place] [address] [place] [address] 12/28/2022 4:00 PM EST Home Visit [facility], [facility] [address] [place] [address] Lana Lieberman, RN [address] [place] [address] 01/29/2023 12:00 PM EST Office Visit [address] [phone] Con Coughlin MD [address] [place] [address] [place] [address] 04/13/2023 3:40 PM EST Office Visit [address] [phone] Marla Tan MD [address] [place] [address] [place] [address] Health Maintenance Due Date Last Done Comments [...] Additional history exists CKD HGB USE SMARTSET 27747 10/05/202310/04, 10/04/2022, 07/06/2022, Additional history exists CKD PHOS USE SMARTSET 75040 10/05/202309/19, 06/08/2021, 09/07/2020, Additional history exists Pneumococcal [...] filedocumented as of this encounter Care Teams Assistant Executive Housekeeper Relationship Specialty Start Date End Date Con Coughlin MD [address] [place] [address] [place] [phone] PCP - General Family Medicine 06/30/14 documented as of this encounter
--- OUTSIDE RECORDS SUMMARY | 2023-01-29 20:09 | External Medical Summary | Summary of Care ---
Author Name Unknown Organization [facility] Address [address] [place] [address] Phone [phone] Care Team Providers Care Projector Booth Operator Name Role Phone Con Coughlin MD Primary Care Provider Reason for Visit * Reason Onset Date Comments Med Request 12/23/2022 Encounter Details Date Type Department Care Team (Late st Contact Info) Description 12/23/[address] [place] [phone] Con Coughlin MD [address] [place] [address] [place] [address] Med Request Allergies Active Allergy Reactions Criticality [...] pain concerns. She is aware [facility] does not manage chronic pain meds. With her history of confusion, would recommend against use of narcotic medication. Mild aortic stenosis 07/27/2021 Last Assessment & Plan: Following with cardiology Aortocoronary bypass status 03/09/2021 Chronic atrial fibrillation 03/01/2021 Overview: new onset, [facility] on apixaban Last Assessment & Plan: Her [...] joint replacement status 09/09/2002 Atherosclerosis of [place] co ronary artery of [place] heart without angina pectoris Last Assessment & [...] ulcer 06/30/2014 06/26/2017 Overview: hgb 7.4 admitted [facility] CKD (chronic kidney disease) stage 3, GFR [...] encounter Miscellaneous Notes * Telephone Encounter - Zoya Nails LPN - 12/23/2022 2:52 PM EDT Gave address of [facility], [address] [place] [address] Will go to [facility]. Thank you * Telephone Encounter - Dariana Herrmann OSA - 12/23/2022 2:42 PM EDT Zoya called to say she is developing flu symptoms: Body aches, watery eyes, headaches, sore throat and would like medicine called in for her before it gets too bad. documented in this encounter Plan of Treatment Upcoming Encounters Date Type Department Care Team (Late st Contact Info) Description 12/28/2022 4:00 PM EST [facility] [address] [place] [address] Lana Lieberman, RN [address] [place] [address] 01/22/2023 1:00 PM EST Office Visit Nephrology Julia Peres[address] [place] [address] June Jade MD [address] [place] [address], [place] [address] 01/29/2023 12:00 PM EST Office Visit [address] [phone] Con Coughlin MD [address] [place] [address] [place] [address] 04/13/2023 3:40 PM EST Office Visit [address] [phone] Marla Tan MD [address] [place] [address] [place] [address] Health Maintenance Due Date Last Done Comments DTaP,Tdap,and Td Vaccines (1 - Tdap) 11/15/1957 Depression Screening 09/29/2020 09/30/2019 COVID-19 Vaccine (5 - 2022-24 season) 2022 04/19/2020, 04/04/2020, 03/22/2020, Additional history exists Influenza Vaccine (FLU shot) (#1) 2022 01/10/2022, 11/18/2020, 12/06/2019, Additional history exists Albumin/Creatinine Ratio 07/28/2023 023, 06/09/2020, 03/13/2019, Additional history exists TSH 07/28/2023 07/27/2022, 04, 06/09/2020, Additional history exists CKD HGB USE SMARTSET 81144 10/05/202310/04, 10/04/2022, 07/06/2022, Additional history exists CKD PHOS USE SMARTSET 85135 10/05/202309/19, 06/08/2021, 09/07/2020, Additional history exists Pneumococcal [...] filedocumented as of this encounter Care Teams Projector Booth Operator Relationship Specialty Start Date End Date Con Coughlin MD [address] [place] [address] [place] [phone] PCP - General Family Medicine 06/30/14 documented as of this encounter
--- OUTSIDE RECORDS SUMMARY | 2023-01-29 20:09 | External Medical Summary | Summary of Care ---
Author Name Unknown Organization [facility] Address [address] [place] [address] Phone [phone] Care Team Providers Care Bread Wrapper Operator Name Role Phone Con Coughlin MD Primary Care Provider [phone] Reason for Visit * Reason Onset Date Comments [facility]: Acute 12/07/2022 Encounter Details Date Type Department Care Team Description 12/07/2022 Telephone [facility], [facility] 132 [facility] [place] [address] [facility], Nurse [facility] 132 [place] [address] [facility]: Acute Allergies Active Allergy [...] Hour (toPROL XL)Indications:Prim kat hypertension,Athero sclerosis of [place] coronary artery of [place] heart without angina pectoris,Essential hypertension with goal [...] discuss her pain concerns. She is aware [facility] does not manage chronic pain meds. With her history of confusion, would recommend against use of narcotic medication. Mild aortic stenosis 07/27/2021 Last Assessment & Plan: Following with cardiology Aortocoronary bypass status 03/09/2021 Chronic atrial fibrillation 03/01/2021 Overview: new onset, [facility] on apixaban Last Assessment & Plan: Rate 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[place] co ronary artery of [place] heart without angina pectoris Last Assessment & [...] ulcer 06/30/2014 06/26/2017 Overview: hgb 7.4 admitted [facility] CKD (chronic kidney disease) stage 3, GFR [...] patient called EMS thinking she was calling [facility] Spoke with EMT and patient. She [...] for eval Care team availability: GPS (location): [place] Acute nurse: none [facility]: not availb in [place] \\[facility] photo tube assembler Acute Call Date: 12/07/2022 Time: 11:01 AM Name: Zoya Hoawrd : 1938 Caller: yolanda Relationship to self HPI: Zoya Howard is a 84 year old female. PC from patient requesting a nurse states she doesn't feel well all over and has been nauseated since yesterday. Someone speaking in the background patientcalled EMS thinking she was calling [facility] Spoke with EMT and patient. She [...] Rest until eval Fall precautions PC to [facility] they will refill zofran Teams and SBAR sent to operations accountant Prema and RNCM Kade Lieberman to assist with scheduling HV Per AUBREY lieberman to call patient and rock picker zofran Treatment/Plan: Level of call: Acute Appointment scheduled for same day: yes Provider Name: Sarthak Lieberman Treatment plan until appointment: to [facility] for recommendations 24/48hr calls Call back instructions provided to patient. Lindsay Giordano RN, BSN G[facility] dental internshipTransaction Advisory Services Manager documented in this encounter Plan of Treatment Upcoming Encounters Date Type Specialty Care Team Description 12/09/2022 Scheduled Telephone [facility], Nurse [address] [place] [address] 12/10/2022 Scheduled Telephone [facility], [place] [address] [place] [address] 12/12/2022 Telemedicine [facility] Anna Claudio CRNP [address] [facility] [place] [address] Ashley Castaneda, Community Health Field Research Associate [address] [place] [address] [place] [address] 12/12/2022 Office Visit Family Medicine Con Coughlin MD [address] [place] [address] [place] [address] 12/28/2022 Home Visit [facility] Lana Lieberman RN 132 [place] [address] 01/29/2023 Office Visit Family Con Borges MD [address] [place] [address] [place] [address] 04/13/2023 Office Visit Family Medicine Marla Tan MD [address] [place] [address] [place] [address] Health Maintenance Due Date Last Done Comments [...] Additional history exists CKD HGB USE SMARTSET 30201 10/05/202310/04, 10/04/2022, 07/06/2022, Additional history exists CKD PHOS USE SMARTSET 65582 10/05/202309/19, 06/08/2021, 09/07/2020, Additional history exists Pneumococcal [...] filedocumented as of this encounter Care Teams Bread Wrapper Operator Relationship Specialty Start Date End Date Con Coughlin MD [address] [place] [address] [place] [address] PCP - General Family Medicine 06/30/14 documented as of this encounter
--- OUTSIDE RECORDS SUMMARY | 2023-01-29 20:09 | External Medical Summary | Summary of Care ---
Author Name Unknown Organization [facility] Address [address] [place] [address] Phone [phone] Care Team Providers Care Chute Loader Name Role Phone Con Coughlin MD Primary Care Provider Reason for Visit * Reason Comments [facility]: Telehealth Encounter Details Date Type Department Care Team (Late st Contact Info) Description 12/15/2022 12:00 PM EDT Telemedicine [facility], [facility] [address] [facility] [address] Anna Claudio CRNP [address] [facility] [address] Ashley Castnaeda, Community Health Web Site Administrator [address] [place] [address] [place] [address] Chronic atrial fibrillation (HCC)*; Hypertensive heart and [...] Hour (toPROL XL)Indications:P rimary hypertension,Ath erosclerosis of [place] coronary artery of [place] heart without angina pectoris,Essenti al hypertension with [...] discuss her pain concerns. She is aware [facility] does not manage chronic pain meds. 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[place] co ronary artery of [place] heart without angina pectoris Last Assessment & [...] documented in this encounter Progress Notes * Anna Claudio CRNP - 12/15/2022 12:00 PM EDT Images from the original note were not included. [facility] Problem Oriented Charting Provider Visit Date: 12/15/2022 Time: 12:17 PM [facility] Sub-Program: Short-Term Management (less than 3 months) [facility] Episode Start Date: Noted: 07/18/2022 Assessment and Plan #1 Chronic atrial fibrillation (HCC) (Primary) Overview: new onset, [facility] on apixaban Assessment & Plan: Her rate [...] recheck in 10-12 weeks viatelemedicine. Check-out note: [facility] scheduling--please schedule 10-12 week telemedicine recheck Scheduled appointments in the next 60 days: Future Appointments-next 60 days Date/Time Provider Specialty Dept Phone 12/15/2022 12:00 PM Ashley Castaneda, [facility] Web Site Administrator; Anna Claudio CRNP [facility] [phone] 12/18/2022 11:20 AM (Arrive by 11:05 AM) Con Coughlin MD Family Medicine [phone] 12/28/2022 4:00 PM Lana Lieberman RN [facility] [phone] 01/29/2023 12:00 PM (Arrive by 11:45 AM) Con Coughlin MD Family Medicine [phone] 04/13/2023 3:40 PM (Arrive by 3:25 PM) Marla Tan MD Family Medicine [phone] A total of 25 minutes was spent face to face (via video-based telemedicine if designated as a telemedicine visit) Subjective Subjective Is this a Telemedicine Visit? Yes, Patient location: HOME. I was not in a hospital or clinic location. After connecting through televideo, patient was verified with two unique identifiers. Patient (or authorized legal roofing sales representative) was then informed that this was a Telemedicine visit and being conducted confidentially over secure lines. Methods to assure confidentiality were taken. Patient acknowledged consent and understanding of privacy and security of the Telemedicine visit. The patient agreed to participate. Reason For [facility] Visit: Transition of Care Current Concerns: Zoya Howard is a 84 year old female seen today for a [facility] provider visit. Past medical history includes hypertension, atrial fib on Eliquis, hyperlipidemia, mild aortic stenosis, CAD with history CABG, CKD 3, hypothyroidism, history gastric ulcer Inpatient at [facility]-admitted 12/07-1023. Per H&P she presented with atypical [...] hypercalcemia 11.6--noted ionized calcium increasing. Nephrology consulted. [place] euvolemic. She is followed by [facility] physician group Cardiology with last appointment 11/30 Today's concerns are: Feels like she is gaining "real wt." Appetite is same but reports she ate a lot in hospital. She had some nausea last night--intermittent for one week. Denies any vomiting. No diarrhea. Formedstool. No abd pain. No fevers. + short of breath, denies any swelling. Has AMC--12/13--161.6 11/16 161.2lb. She feels like she is [...] "CHOL", "LDLCALC", "HDL", "TRIG" in the last 95916 hours. CBC results Recent Labs Units 10/04/22 1159 07/06/22 1339 06/08/21 1520 WBC AUTO - [facility] K/uL 8.75 7.77 6.62 HGB - [facility] g/dL 12.0 11.6* 10.8* HCT - [facility] % 37.5 37.4 34.4* PLATELET AUTO - [facility] K/uL 187 209 144 HbA1c results No results for input(s): "HGBA1C" in the last 81720 hours. TSH results Recent Labs Units 07/27/22 1142 06/08/21 1520 TSH - [facility] uIU/mL 0.34 0.47 Vitamin D results No results for input(s): "25OHVITAMIND" in the last 42519 hours. Hepatic panel results Recent Labs Units 07/06/22 1339 PROTEIN - [facility] g/dL 6.9 BILIRUBIN, TOTAL - [facility] mg/dL 0.3 ALKALINE PHOSPHATASE - [facility] U/L 78 AST - [facility] U/L 21 ALT - [facility] U/L 15 Protein/cr ratio results No results for input(s): "PROCRRATIO" in the last 31308 hours. Medication Review "Bottles Out" medication review performed today and medication list in EMR updated Pill packs EMIR Hewitt 9:30 AM *Communication sent to PCP (via autofax if [facility]), [facility] Care Team members,relevant Specialty Care Physicians* documented [...] Description 12/18/2022 11:20 AM EDT Office Visit [address] [phone] Con Coughlin MD [address] [place] [address] [place] [address] 12/28/2022 4:00 PM EST Home Visit [facility] at [facility] 132 [facility] [place] [address] Lana Lieberman, KHARI 132 [facility] [place] [address] 01/29/2023 12:00 PM EST Office Visit [address] [phone] Con Coughlin MD [address] [place] [address] [place] [address] 04/13/2023 3:40 PM EST Office Visit [address] [phone] Marla Tan MD [address] [place] [address] [place] [address] Health Maintenance Due Date Last Done Comments [...] Additional history exists CKD HGB USE SMARTSET 30682 10/05/202310/04, 10/04/2022, 07/06/2022, Additional history exists CKD PHOS USE SMARTSET 13746 10/05/202309/19, 06/08/2021, 09/07/2020, Additional history exists Pneumococcal [...] Hypercalcemia documented in this encounter Care Teams Chute Loader Relationship Specialty Start Date End Date Con Coughlin MD [address] [place] [address] [place] [address] PCP - General Family Medicine 06/30/14 documented as of this encounter
--- OUTSIDE RECORDS SUMMARY | 2023-01-29 20:09 | External Medical Summary | Summary of Care ---
Author Name Unknown Organization [facility] Address [address] [place] [address] Phone [phone] Care Team Providers Care Clinical Education Coordinator Name Role Phone Con Coughlin MD Primary Care Provider Reason for Visit * Reason Onset Date Comments FYI 12/13/2022 Encounter Details Date Type Department Care Team (Late st Contact Info) Description 12/13/[address] [place] [phone] Con Coughlin MD [address] [place] [address] [place] [address] FYI Allergies Active Allergy Reactions Criticality Noted Date Comments Ergotamine 03/01/2000 vomit Nitroglycerin 03/14/2007 vomitting documented as of this encounter (statuses as of 12/14/2022) Medications Medication Sig Dispensed Refills Start Date [...] as of this encounter (statuses as of 12/14/2022) Active Problems Problem Noted Date Diagnosed Date [...] discuss her pain concerns. She is aware [facility] does not manage chronic pain meds. With her history of confusion, would recommend against use of narcotic medication. Mild aortic stenosis 07/27/2021 Last Assessment & Plan: Following with cardiology Aortocoronary bypass status 03/09/2021 Chronic atrial fibrillation 03/01/2021 Overview: new onset, [facility] on apixaban Last Assessment & Plan: Rate [...] as of this encounter (statuses as of 12/14/2022) Resolved Problems Problem Noted Date Diagnosed Date [...] ulcer 06/30/2014 06/26/2017 Overview: hgb 7.4 admitted [facility] CKD (chronic kidney disease) stage [...] as of this encounter (statuses as of 12/14/2022) Immunizations Name Administration Dates Next Due COVID-19 [...] Telephone Encounter - Flor Gilmore LPN - 12/14/2022 2:32 PM EDT Cameron is aware. * Telephone Encounter - Con Coughlin MD - 12/14/2022 2:17 PM EDT ok * Telephone Encounter - TAM Kimbrough - 12/13/2022 3:51 PM EDT Giuseppe from [facility] called to inform doctor that pt has hosp stay a couple weeks then continuewith PT - needs Plan of Care authorized documented in this encounter Plan of Treatment Upcoming Encounters Date Type Department Care Team (Late st Contact Info) Description 12/15/2022 12:00 PM EDT Telemedicine [facility] [place] [address] Anna Claudio CRNP [address] [place] [address] Ashley Castaneda Community Health Store Consultant [address] [place] [address] [place] [address] 12/18/2022 11:20 AM EDT Office Visit Family Medicine [address] [place] [phone] Con Coughlin MD [address] [place] [address] [place] [address] 12/28/2022 4:00 PM EST [facility] Visit [facility], [facility] [address] [place] [address] Lana Lieberman, RN [address] [place] [address] 01/29/2023 12:00 PM EST Office Visit [address] [phone] Con Coughlin MD [address] [place] [address] [place] [address] 04/13/2023 3:40 PM EST Office Visit [address] [phone] Marla Tan MD [address] [place] [address] [place] [address] Health Maintenance Due Date Last Done Comments [...] Additional history exists CKD HGB USE SMARTSET 16465 10/05/202310/04, 10/04/2022, 07/06/2022, Additional history exists CKD PHOS USE SMARTSET 13034 10/05/202309/19, 06/08/2021, 09/07/2020, Additional history exists Pneumococcal [...] filedocumented as of this encounter Care Teams Clinical Education Coordinator Relationship Specialty Start Date End Date Con Coughlin MD [address] [place] [address] [place] [address] PCP - General Family Medicine 06/30/14 documented as of this encounter
--- OUTSIDE RECORDS SUMMARY | 2023-01-29 20:09 | External Medical Summary | Summary of Care ---
Author Name Unknown Organization [facility] Address [address] [place] [address] Phone [phone] Care Team Providers Care Dining Service Supervisor Name Role Phone Con Coughlin MD Primary Care Provider + [phone] Reason for Visit * Reason Comments Hospital Follow-Up Encounter Details Date Type Department Care Team (Late st Contact Info) Description 12/18/2022 11:20 AM EDT Office Visit Family Medicine [address] [phone] Con Coughlin MD [address] [place] [address] [place] [address] Hypercalcemia*; Bilateral shoulder region arthritis; Chronic heart failure with preserved ejection fraction (HCC); Acquired hypothyroidism; Atherosclerosis of [place] coronary artery of [place] heart without angina pectoris; DDD (degenerative disc disease), lumbar; Low back pain radiating to left leg; Gastroesophageal reflux disease with esophagitis without hemorrhage; Hiatal hernia; Chronic atrial fibrillation (HCC) Allergies Active Allergy Reactions Criticality Noted Date Comments Ergotamine 03/01/2000 vomit Nitroglycerin 03/14/2007 vomitting documented as of this encounter (statuses as of 12/18/2022) Medications Medication Sig Dispensed Refills Start Date [...] for pain.. 30 Tablet 5 12/18/2022 Active Polyethylene Glycol 3350 17 GM/SCOOP Oral Powder (MiraLax) Take 17 g by mouth as needed for Constipation. Dissolve one heaping tablespoon in 8 ounces of water or juice. 225 g 3 08/02/2022 3 Discontinue d(End of Procedure) Metoprolol Succinate ER 25 MG Oral Tablet Extended Release 24 Hour (toPROL XL)Indications:Reema madi hypertension,Ather osclerosis of [place] coronary artery of [place] heart without angina pectoris,Essential hypertension with goal blood pressure less than 140/90 Take 1 Tablet by mouth in the morning. 90 Tablet 3 11/20/2022 3 Discontinue d(Medicatio n/Dose Changed) documented as of this encounter (statuses as of 12/18/2022) Active Problems Problem Noted Date Diagnosed Date [...] discuss her pain concerns. She is aware [facility] does not manage chronic pain 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[place] co ronary artery of [place] heart without angina pectoris Last Assessment & Plan: Stable no angina -continue rosuvastatin, metopropolol, Anxiety state Last Assessment & Plan: Stable on buspar, Primary hypertension Gastroesophageal reflux dise ase with esophagitis without hemorrhage Last Assessment & Plan: symptoms controlled on pantoprazole Scoliosis of lumbar spine Mixed incontinence urge and stress (male)(female ) documented as of this encounter (statuses as of 12/18/2022) Resolved Problems Problem Noted Date Diagnosed Date [...] as of this encounter (statuses as of 12/18/2022) Immunizations Name Administration Dates Next Due COVID-19 [...] Date Smoking Tobacco: Never Smokeless Tobacco: Never Tobacco Cessation:Counseling Given: Not Answered Alcohol Use Standard Drinks/Week Comments Yes 0 [...] Sign Reading Time Taken Comments Blood Pressure 138/76 12/18/2022 11:27 AM EDT Pulse 69 12/18/2022 11:27 AM EDT Temperature 36 C (96.8 F) 12/18/2022 11:27 AM EDT Respiratory Rate 16 12/18/2022 11:27 AM EDT Oxygen Saturation 97% 12/18/2022 11:27 AM EDT Inhaled Oxygen Concentration - - Weight 75.9 kg (167 lb 5 oz) 12/18/2022 11:27 AM EDT Height - - Body Mass Index 31.61 07/06/2022 1:08 PM EDT documented in this encounter Progress Notes * Con Coughlin MD - 12/18/2022 11:28 AM EDT Admitted [facility] 12/07, discharged 12/12 with nausea, vomiting maybe related to hiatal hernia, and hyper calcemia 11.6. Calcium Supplements held and she is supposed to be getting Calcitrol. She says sherdonnyly lost her ability to walk is trying to get her strength back. She asks for something for pain. She was on hydrocodone for a while and we stopped it a couple of years ago because she was really compromised on it and was still driving under its influence. She is on Eliquis but I am very loathe to try it again. She saw Cardiology because she went back into AF and with increase in metoprolol xlshe is back into sinus. Nephrology saw her as well. She has a walker at home she uses off and on. Past Medical History: Diagnosis Date Acute on chronic combined systolic and diastolic CHF (congestive heart failure) ([facility]) 03/28/2021 admitted [facility] Anxiety state Anxiety State Aortic valve stenosis, mild 03/01/2021 Aortocoronary bypass status Atherosclerosis of [place] coronary artery of [place] heart without angina pectoris Atrial fibrillation ([facility]) 12/09/2020 during admission [place] Benign hypertension with CKD (chronic kidney disease) stage III ([facility]) Cataract cortical, senile Chronic atrial fibrillation ([facility]) 03/01/2021 new onset, [facility] on apixaban CKD (chronic kidney disease) stage 3, GFR 30-59 ml/min ([facility]) 07/03/2013 GFR 36.9 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 11/01/2020 Coronary atherosclerosis CAD Cystitis 09/16/2018 >100,000 enterococcus pansensitive Cystitis 08/03/2020 10-100,000 E coli pansensitive Depressive disorder, not elsewhere classified Depression Gastric ulcer 06/30/2014 hgb 7.4 admitted [facility] Herpes zoster without complication 11/18/2020 right hip Hypertension goal BP (blood pressure) < 140/90 Macular hole of left eye Major depression, single episode MEDICATION USE AGREEMENT 03/19/2012 Tylenol with codeine--Reena Meningioma, cerebral ([facility]) 07/16/2022 small frontal cortex meningioma without mass effect Meningioma, cerebral ([facility]) 2022-08-02 Adding D32.0-Meningioma, cerebral ([facility]) Dx to History Migraines history of migraines--stopped 1998 Mixed incontinence urge and stress (male)(female) Moderate mitral regurgitation 03/01/[address] Ndiaye Other and unspecified noninfectious gastroenteritis and colitis(558.9) 06/24/2013 admitted [facility] Other forms of retinal detachment(361.89) Pneumonia due to COVID-19 virus 12/09/2020 [place], transferred to [place] Postoperative anemia due to acute blood loss 03/11/2018 hgb 7, given 2 units PRBC hgb 9 on discharge Reflux esophagitis Scoliosis of lumbar spine Syncope and collapse 03/11/2018 hit head, admitted to [facility] Trochanteric bursitis of right hip 10/24/2020 Past Surgical History: Procedure Laterality Date ABDOMEN SURGERY PROCEDURE NEC liposuction CABG, ARTERIAL, TWO 02/[address] HEAD/BRAIN W/O CONTRAST MATERIAL 07/16/2022 chronic cerebellar infarct COLONOSCOPY, DIAGNOSTIC (RECTUM) 08/01/2016 normal /[facility] COLORECTAL CANCER SCREEN;W/FLE 08/2000 CT ABD/PELVIS W IV AND W ORAL CONTRAST N/A 10/05/2020 bilateral hip replacements, DJD of back, otherwise unremarkable. CTA HEAD W CONTRAST 07/14/2022 normal CTA NECK W CONTRAST 07/16/2022 no acute findings EGD, FLEXIBLE, DIAGNOSTIC 07/02/2014 esophagitis chronic gastritis with ulcers/inpt [facility] EGD, FLEXIBLE, DIAGNOSTIC 11/11/2014 reflux esophagitis/[facility] EGD, FLEXIBLE, DIAGNOSTIC 08/01/2016 gastritis, normal bx/[facility] INFORMATION repair retinal tear LASERING OF SECONDARY CATARACT bilateral MRI BRAIN W WO CONTRAST 02/2012 No acute findings MRI BRAIN WITH CONTRAST 07/16/2022 senescent changes microangiopathy, small meningioma left frontal cortex MRI L SPINE WO CONTRAST 02/2012 mod advanced spondylitic changes; multilevel disc bulges; multiple areas of foraminal narrowing RECONSTRUCT/REPLACE SHOULDER JOINT Left 07/13/2017 Dr Green RECONSTRUCT/REPLACE SHOULDER JOINT Right 02/28/2018 Sonya with biceps tenodesis REMOVE CATARACT, INSERT LENS PROSTH bilateral REMOVE TONSILS & ADENOIDS, UNDER 12 Tonsillectomy/Adenoids,<12 Y/O STRESS TREADMILL 10/2006 Cardiovascular Stress Test-Dr. Bryan MOLINA TOTAL ABD HYSTERECTOMY W/WO REMOVAL OF TUBE(S) Total Abd Hysterectomy with bilateral salpingo-oophorectomy TOTAL HIP REPLACEMENT & PROSTHESIS Left 1998 THR (Hip Total Replacement)--right TOTAL HIP REPLACEMENT & PROSTHESIS 09/01/2002 LTHR VASC DUPLEX CAROTID BILAT 02/2012 Normal Review of patient's allergies indicates: Allergen Reactions Ergotamine vomit Nitro [Nitroglycerin] vomitting Social History Socioeconomic History Marital status: Spouse [...] Concern Not on file Social History Narrative Madi Howard Ramana Social Determinants of Health Financial Resource Strain: Not on file Food Insecurity: No Food Insecurity (06/16/2019) Hunger Vital Sign Worried About Running Out of Food in the Last Year: Never true Ran Out of Food in the Last Year: Never true Transportation Needs: Not on file Physical Activity: Not on file Stress: Not on file Social Connections: Not on file Intimate Partner Violence: Not on file Housing Stability: Not on file Current Outpatient Medications Medication Sig Dispense Refill Acetaminophen 500 MG Oral Tablet (Tylenol) Take 1 Tab by mouth 3 times a day. 100 Tab 0 Polyethylene Glycol 3350 17 GM/SCOOP Oral Powder (MiraLax) Take 17 g by mouth as needed for Constipation. Dissolve one heaping tablespoon in 8 ounces of water or juice. (Patient not taking: Reported on 11/29/2022) 225 g 3 Eliquis 5 MG Oral Tablet Take 1 [...] Tablet by mouth daily. 90 Tablet 0 Metoprolol Succinate ER 25 MG Oral Tablet Extended Release 24 Hour (toPROL XL) Take 1 Tablet by mouth in the morning. 90 Tablet 3 Pantoprazole Sodium 40 MG Oral Tablet Delayed Release (Protonix) Take 1 Tablet by mouth in the morning and 1 Tablet before bedtime. 180 Tablet 1 DIURETIC TITRATION PLAN If no improvement on day 3, contact heart failure managing provider. 1 Each0 No current facility-administered medications for this visit. O: Blood pressure 138/76, pulse 69, temperature 36 C (96.8 F), temperature source Tympanic, resp. rate 16, weight 75.9 kg (167 lb 5 oz), SpO2 97%. General appearance: well developed, well nourished and in no acute distress. Neck is supple without adenopathy or thyromegaly. Chest is symmetrical and moves normally. The lungs are clear without wheezes, rales, rhonchi or rubs, and the heart is regular without murmurs or gallops, or ectopy. PMI not displaced. No edema A: Hypercalcemia (Primary) Bilateral shoulder region arthritis - Meloxicam 7.5 MG Oral Tablet (Mobic); Take 1 Tablet by mouth in the morning. for pain.. Chronic heart failure with preserved ejection fraction (HCC) Acquired hypothyroidism Atherosclerosis of [place] coronary artery of [place] heart without angina pectoris DDD (degenerative disc disease), lumbar Low back pain radiating to left leg Gastroesophageal reflux disease with esophagitis without hemorrhage Hiatal hernia Chronic atrial fibrillation (HCC) I know her EGFR is down but I really do not want to start up the hydrocodone again. She did not do well and her mind is clear right now. Follow Up: Return in about 3 months (around 03/20/2023) for Clinic Visit. | For: Clinic Visit documented in this encounter Nursing Notes * Flor Gilmore LPN - 12/18/2022 11:23 AM EDT [facility] follow up Hasn't started Metoprolol 50 mg and Calcitrol yet. Has to bulk picker the RXS from [facility]. documented in this encounter Plan of Treatment Upcoming Encounters Date Type Department Care Team (Late st Contact Info) Description 12/28/2022 4:00 PM EST Home Visit [facility] [address] [facility] [place] [address] Lana Lieberman RN [address] [place] [address] 01/29/2023 12:00 PM EST Office Visit [address] [phone] Con Coughlin MD [address] [place] [address] [place] [id number] 04/13/2023 3:40 PM EST Office Visit [address] [phone] Marla Tan MD [address] [place] [address] [place] [address] Health Maintenance Due Date Last Done Comments [...] Additional history exists CKD HGB USE SMARTSET 51899 10/05/202310/04, 10/04/2022, 07/06/2022, Additional history exists CKD PHOS USE SMARTSET 01762 10/05/202309/19, 06/08/2021, 09/07/2020, Additional history exists Pneumococcal [...] as of this encounter Visit Diagnoses Diagnosis Hypercalcemia- Primary Bilateral shoulder region arthritis Chronic heart failure with preserved ejection fraction (HCC) Acquired hypothyroidism Unspecified hypothyroidism Atherosclerosis of [place] coronary artery of [place] heart without angina pectoris DDD (degenerative disc disease), lumbar Degeneration of lumbar or lumbosacral intervertebral disc Low back pain radiating to left leg Lumbago Gastroesophageal reflux disease with esophagitis without hemorrhage Hiatal hernia Diaphragmatic hernia without mention of obstruction or gangrene Chronic atrial fibrillation (HCC) Atrial fibrillation documented in this encounter Care Teams Dining Service Supervisor Relationship Specialty Start Date End Date Con Coughlin MD [address] [place] [address] [place] [phone] PCP - General Family Medicine 06/30/14 documented as of this encounter
--- OUTSIDE RECORDS SUMMARY | 2023-01-29 20:09 | External Medical Summary | Summary of Care ---
Author Name Unknown Organization [facility] Address [address] [place] [address] Phone [phone] Care Team Providers Care White Kid Buffer Name Role Phone Con Coughlin MD Primary Care Provider Reason for Visit * Reason Onset Date Comments Appointment 12/12/2022 Hospital follow up appointment Encounter Details Date Type Department Care Team (Late st Contact Info) Description 12/12/2022 Telephone General Internal Medicine [facility] [place] [address] [facility] [place] [address] Con Coughlin MD [address] [place] [address] [place] [phone] Appointment (Hospital follow up appointment) Allergies Active [...] Hour (toPROL XL)Indications:Prim kat hypertension,Athero sclerosis of [place] coronary artery of [place] heart without angina pectoris,Essential hypertension with goal [...] Chronic atrial fibrillation 03/01/2021 Overview: new onset, [facility] on apixaban Last Assessment & 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[place] co ronary artery of [place] heart without angina pectoris Last Assessment & [...] ulcer 06/30/2014 06/26/2017 Overview: hgb 7.4 admitted [facility] CKD (chronic kidney disease) stage [...] encounter Miscellaneous Notes * Telephone Encounter - Yessica Ellison LPN - 12/12/2022 3:15 PM EDT Schedulers- please contact pt to schedule a hospital discharge appointment with either Dr Jade or Dr Shah in about 2 weeks. Please remind her to complete labs before visit. Thanks. * Telephone Encounter - Tulio Laughlin RN - 12/12/2022 2:55 PM EDT Patient discharged home today from [facility]. Nephrology consulted and recommend: appt w/ me( [...] Description 12/18/2022 11:20 AM EDT Office Visit [address] [place] [phone] Con Coughlin MD [address] [place] [address] [place] [phone] 12/28/2022 4:00 PM EST Home Visit [facility] [address] [place] [address] Lana Lieberman, KHARI [address] [place] [address] 01/29/2023 12:00 PM EST Office Visit [address] [phone] Con Coughlin MD [address] [place] [address] [place] [phone] 04/13/2023 3:40 PM EST Office Visit [address] [place] [phone] Marla Tan MD [address] [place] [address] [place] [address] Scheduled Orders Name Type Priority Associated Diagnoses [...] Additional history exists CKD HGB USE SMARTSET 31212 10/05/202310/04, 10/04/2022, 07/06/2022, Additional history exists CKD PHOS USE SMARTSET 97854 10/05/202309/19, 06/08/2021, 09/07/2020, Additional history exists Pneumococcal [...] Primary documented in this encounter Care Teams White Kid Buffer Relationship Specialty Start Date End Date Con Coughlin MD [address] [place] [address] [place] [address] PCP - General Family Medicine 06/30/14 documented as of this encounter
--- OUTSIDE RECORDS SUMMARY | 2023-01-29 20:09 | External Medical Summary | Summary of Care ---
Author Name Unknown Organization [facility] Address [address] [place] [address] Phone [phone] Care Team Providers Care Numerical Control Machine Machinist Name Role Phone Con Coguhlin MD Primary Care Provider [phone] Reason for Visit * Reason Onset Date Comments [facility]: Maintenance 12/13/2022 Encounter Details Date Type Department Care Team (Late st Contact Info) Description 12/13/2022 3:30 PM EDT Scheduled Telephone [facility], [facility] [address] [facility] [place] [address] Coordinator, [facility] [address] [facility] [place] [address] Allergies Active Allergy Reactions Criticality Noted Date [...] Hour (toPROL XL)Indications:Prim kat hypertension,Athero sclerosis of [place] coronary artery of [place] heart without angina pectoris,Essential hypertension with goal [...] discuss her pain concerns. She is aware [facility] does not manage chronic pain meds. With her history of confusion, would recommend against use of narcotic medication. Mild aortic stenosis 07/27/2021 Last Assessment & Plan: Following with cardiology Aortocoronary bypass status 03/09/2021 Chronic atrial fibrillation 03/01/2021 Overview: new onset, [facility] on apixaban Last Assessment & Plan: Rate 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[place] co ronary artery of [place] heart without angina pectoris Last Assessment & [...] Telephone Encounter - Shelby Arroyo LPN - 12/13/2022 12:49 PM EDT Call to make aware of GARCÍA appt on 12/15 Patient aware spoke to caregiver documented in this encounter Plan of Treatment Upcoming Encounters Date Type Department Care Team (Late st Contact Info) Description 12/15/2022 12:00 PM EDT Telemedicine ising at [facility] [address] [place] [address] Anna Claudio CRNP [address] [place] [address] [facility] Centrifugal Chiller Technician [address] [place] [address] [place] [address] 12/18/2022 11:20 AM EDT Office Visit [address] [phone] Con Coughlin MD [address] [place] [address] [place] [phone] 12/28/2022 4:00 PM EST Home Visit [facility] [address] [place] [address] Lana Lieberman, KHARI [address] [place] [address] 01/29/2023 12:00 PM EST Office Visit [address] [phone] Con Coughlin MD [address] [place] [address] [place] [phone] 04/13/2023 3:40 PM EST Office Visit Family Medicine [address] [place] [phone] Marla Tan MD [address] [place] [address] [place] [phone] Health Maintenance Due Date Last Done Comments [...] Additional history exists CKD HGB USE SMARTSET 49611 10/05/202310/04, 10/04/2022, 07/06/2022, Additional history exists CKD PHOS USE SMARTSET 24462 10/05/202309/19, 06/08/2021, 09/07/2020, Additional history exists Pneumococcal [...] filedocumented as of this encounter Care Teams Numerical Control Machine Machinist Relationship Specialty Start Date End Date Con Coughlin MD [address] [place] [address] [place] [phone] PCP - General Family Medicine 06/30/14 documented as of this encounter
--- OUTSIDE RECORDS SUMMARY | 2023-01-29 20:10 | External Medical Summary | Summary of Care ---
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 100 Tab 0 1 Active Diphenoxylate-Atr opine 2.5-0.025 MG Oral Tablet Take by mouth every 4 hours as needed for Diarrhea. Patient taking 1-2 tabs every 4 hours for diarrhea. 0 Active Polyethylene Glycol 3350 17 GM/SCOOP Oral Powder (MiraLax) Take 17 g by mouth as needed for Constipation. Dissolve one heaping tablespoon in 8 ounces of water or juice. 225 g 3 3 Active amLODIPine Besylate 5 MG Oral Tablet (Norvasc) [...] 3 Active Gabapentin 300 MG Oral Capsule (Neurontin)Indica [...] as needed 60 Tablet 1 3 Active Levothyroxine Sodium 100 [...] Oral Tablet Extended Release 24 Hour (toPROL XL)Indications:Pr imary hypertension,Athe rosclerosis of holy cross coronary artery of holy cross heart without angina pectoris,Essentia l hypertension with goal blood pressure less than 140/90 Take 1 Tablet by mouth in the morning. 90 Tablet 3 3 Active Pantoprazole Sodium 40 MG Oral Tablet Delayed Release (Protonix)Indicat ions:Gastric ulcer without hemorrhage or perforation, unspecified chronicity,Gastro esophageal reflux disease with esophagitis without hemorrhage Take 1 Tablet by mouth in the morning and 1 Tablet before bedtime. 180 Tablet 1 3 Active Levothyroxine Sodium 100 MCG Oral Tablet (Levoxyl) TAKE ONE TABLET BY MOUTH EVERY DAY 90 Tablet 1 3 11/21/19 23 Discontinued(Ref ill) Metoprolol Succinate ER 25 MG Oral Tablet Extended Release 24 Hour (toPROL XL)Indications:Es sential hypertension with goal blood pressure less than 140/90,Atheroscle rosis of holy cross coronary artery of holy cross heart without angina pectoris,Primary hypertension TAKE ONE TABLET BY MOUTH EVERY DAY 90 Tablet 1 3 11/21/19 23 Discontinued(Ref ill) Rosuvastatin Calcium 40 MG Oral Tablet (Crestor)Indicati ons:Dyslipidemia, goal LDL below 100 TAKE ONE TABLET BY MOUTH AT BEDTIME 90 Tablet 1 3 11/21/19 23 Discontinued(Ref ill) Pantoprazole Sodium 40 MG Oral Tablet Delayed Release (Protonix)Indicat ions:Gastric ulcer without hemorrhage or perforation, unspecified chronicity,Gastro esophageal reflux disease with esophagitis without hemorrhage TAKE ONE TABLET BY MOUTH TWICE DAILY 180 Tablet 1 3 11/21/19 23 Discontinued(Ref ill) Ondansetron HCl 4 MG Oral Tablet (Zofran)Indicatio ns:Nausea TAKE ONE TABLET BY MOUTH EVERY 6 HOURS NEEDED FOR nausea 30 Tablet 0 3 11/22/19 23 Discontinued documented as of this encounter (statuses as of 11/22/2022) Active Problems Problem Noted Date Current moderate episode of major depressive disorder without prior episode 04/07/2022 Food insecurity 08/01/2021 Overview: Per [facility] Protocol Hypertensive heart and kidne [...] discuss her pain concerns. She is aware [facility] does not manage chronic pain meds. With her history of confusion, would recommend against use of narcotic medication. 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 angina pectoris Last Assessment & Plan: Stable no angina -continue rosuvastatin, metopropolol, Anxiety state Last Assessment & Plan: Stable on buspar, Primary hypertension Gastroesophageal reflux disease with eso phagitis without hemorrhage Last Assessment & Plan: symptoms controlled on pantoprazole Scoliosis of lumbar spine Mixed incontinence urge and stress (male )(female) documented as of this encounter (statuses as of 11/22/2022) Resolved Problems Problem Noted Date Resolved Date [...] ulcer 06/30/2014 06/26/2017 Overview: hgb 7.4 admitted [facility] CKD (chronic kidney disease) stage 3, GFR [...] as of this encounter (statuses as of 11/22/2022) Immunizations Name Administration Dates Next Due COVID-19 [...] encounter Miscellaneous Notes * Telephone Encounter - Mine Muse RPh - 11/22/2022 3:21 PM EDT 2nd attempt Tried to call patient about Statin dose change; LMOVM. If patient calls back please transfer to myself, if I am not available please select next [facility]. Please advise of dose change, lipid panel previously ordered Thank you, Mine Muse, PharmD, [place] Clinical Pharmacist [facility] ([facility]) (formerly Telepharmacy) 11/22/22 3:21 PM [phone] * Telephone Encounter - Mine Muse [facility] - 11/21/2022 9:10 AM EDT Tried to call patient about Statin dose change; LMOVM. If patient calls back please transfer to myself, if I am not available please select next [facility]. Please advise of dose change, lipid panel previously ordered Thank you, Mine Muse, PharmSanjana, MILLER Clinical Pharmacist [facility] 11/21/22 9:11 AM [phone] * Telephone Encounter - Delmer Valles MD - 11/20/2022 5:47 PM EDT Signed Prescriptions: Disp Refills Levothyroxine Sodium 100 MCG Oral Tablet (*90 Tab*3 Sig: Take 1 Tablet by mouth in the morning. (at least 30 min prior to breakfast or other meds). Authorizing Provider: DIPESH GARCIA Ordering User: MINE MUSE Rosuvastatin Calcium 10 MG Oral Tablet (Cr*90 Tab*0 Sig: Take 1 Tablet by mouth daily. Authorizing Provid er: DELMER VALLES Metoprolol Succinate ER 25 MG Oral Tablet *90 Tab*3 Sig: Take 1 Tablet by mouth in the morning. Authorizing Provider: DIPESH GARCIA Ordering User: MINE MUSE Pantoprazole Sodium 40 MG Oral Tablet Marixa*180 Ta*1 Sig: Take 1 Tablet by mouth in the morning and 1 Tablet before bedtime. Authorizing Provider: DIPESH GARCIA Ordering User: MINE MUSE * Telephone Encounter - Mine Muse [facility] - 11/20/2022 5:12 PM EDT Pending Prescriptions: Disp Refills Rosuvastatin Calcium 10 MG Oral Tablet (Cr*90 Tab*0 Sig: Take 1 Tablet by mouth daily. Signed Prescriptions: Disp Refills Levothyroxine Sodium 100 MCG Oral Tablet (*90 Tab*3 Sig: Take 1 Tablet by mouth in the morning. (at least 30 min prior to breakfast or other meds). Authorizing Provider: IRENE GARCIA Ordering User: MINE MUSE Metoprolol Succinate ER 25 MG Oral Tablet *90 Tab*3 Sig: Take 1 Tablet by mouth in the morning. Authorizing Provider: DIPESH GARCIA Ordering User: MINE MUSE Pantoprazole Sodium 40 MG Oral Tablet Marixa*180 Ta*1 Sig: Take 1 Tablet by mouth in the morning and 1 Tablet before bedtime. Authorizing Provider: DIPESH GARCIA Orde ring User: MINE MUSE * Telephone Encounter - Mine Muse RPh - 11/20/2022 5:10 PM EDT Unable to authorize medication refills for pended medication(s) at this time. Part of the protocol criteria used for refill authorization was not satisfied. Dose too high for current kidney function. Serum creatinine: 1.5 mg/dL (H) 10/04/22 1159 Estimated creatinine clearance: 24.9 mL/min (A) CrCl <30 mL/minute/1.73 m2: 5 to 10 mg once daily. Pended dose reduction for approval. Please approve if appropriate then route back to me and I will inform patient. Pending Prescriptions: Disp Refills Rosuvastatin Calcium 10 MG Oral Tablet (C*90 Tab*0 Sig: Take 1 Tablet by mouth daily. Thank you, Mine Muse, PharmD, [place] Clinical Pharmacist [facility] ([facility]) (formerly Telepharmacy) 11/20/22 5:10 PM [phone] * Telephone Encounter - Mine Muse RPh - 11/20/2022 5:08 PM EDT Per refill protocol patient needs vitamin B-12 lab on file within the past 2 years while using PPIs. Lab work ordered. Patient may obtain with next routine labs. Thank you, Mine Muse PharmD, [place] Clinical Pharmacist [facility] ([facility]) (formerly Telepharmacy) 11/20/22 5:08 PM [phone] * Telephone Encounter - Yolie Smallwood CPhT - 11/20/2022 1:20 PM EDT Pt requesting HIGH PRIORITY due to out med Did you pend patient's preferred pharmacy and medication before forwarding?yes Pharmacy: [facility], [address] [place] Pending Prescriptions: Disp Refills Levothyroxine Sodium 100 MCG Oral Tablet *90 Tab*1 Sig: Take 1 Tablet by mouth in the morning. (at least 30 min prior to breakfast or other meds). Rosuvastatin Calcium 40 MG Oral Tablet (C*90 Tab*1 Sig: Take 1 Tablet by mouth at bedtime. Metoprolol Succinate ER 25 MG Oral Tablet*90 Tab*1 Sig: Take 1 Tablet by mouth in the morning. Pantoprazole Sodium 40 MG Oral Tablet Del*180 Ta*1 Sig: Take 1 Tablet by mouth in the morning and 1 Tablet before bedtime. Last Visit: 10/10/2022 (in office), Visit date not found (telemedicine) Next Visit: 01/29/2023 If no future appointments scheduled, and last appointment is greater than a year ago, please schedule patient for a follow-up appointment Last date the medication was ordered: 05/31/22 Is this request for a controlled substance?No [...] Encounters Date Type Specialty Care Team Description 11/29/2022 Home Visit [facility] Lana Lieberman RN [address] [place] [address] 12/05/2022 Office Visit Family Medicine Dipesh Garcia MD [address] [place] [address] [place] [phone] 12/12/2022 Telemedicine [facility] Anna Claudio CRNP [address] [place] [address] [facility] Seism[employer] Operator [address] [place] [address] [place] [address] 01/29/2023 Office Visit Family Medicine Dipesh Garcia MD [address] [place] [address] [place] [phone] 04/13/2023 Office Visit Family Medicine Marla Tan MD [address] [place] [address] [place] [address] 04/25/2023 Office Visit Nephrology Tirso Shah MD [address] [place] [address], [place] [address] Scheduled Orders Name Type Priority Associated Diagnoses Orde r Schedule VITAMIN B12 Lab Routine Encounter for long-term (current) use of medications Expected: 12/04/2022 (Approximate), Expires: 11/21/2023 Health Maintenance Due Date Last Done Comments [...] Additional history exists CKD HGB USE SMARTSET 84891 10/05/202310/04, 10/04/2022, 07/06/2022, Additional history exists CKD PHOS USE SMARTSET 92147 10/05/202309/19, 06/08/2021, 09/07/2020, Additional history exists Pneumococcal [...] as of this encounter Visit Diagnoses Diagnosis Encounter for long-term (current) use of medications- Primary Encounter for long-term (current) use of other medications Dyslipidemia, goal LDL below 100 Other and unspecified hyperlipidemia Primary hypertension Unspecified essential hypertension 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
--- OUTSIDE RECORDS SUMMARY | 2023-01-29 20:10 | External Medical Summary | Summary of Care ---
Author Name Unknown Organization [facility] Address [address] [place] [address] Phone [phone] Care Team Providers Care Direct Support Staff Name Role Phone Con Coughlin MD Primary Care Provider [phone] Reason for Visit * Reason Comments [facility]: Maintenance Encounter Details Date Type Department Care Team Description 11/01/2022 Home Visit [facility], [facility] [address] [facility] [place] [address] Lana Lieberman RN [address] [place] [address] Allergies Active Allergy Reactions Severity Noted Date Comments Ergotamine 03/01/2000 vomit Nitroglycerin 03/14/2007 vomitting documented as of this encounter (statuses as of 11/01/2022) Medications Medication Sig Dispensed Refills Start Date End Date Status Acetaminophen 500 MG Oral Tablet (Tylenol) Take 1 Tab by mouth 3 times a day. 100 Tab 0 11/12/2020 Active Levothyroxine Sodium 100 MCG Oral Tablet (Levoxyl) TAKE ONE TABLET BY MOUTH EVERY DAY 90 Tablet 1 05/31/2022 Active Metoprolol Succinate ER 25 MG Oral Tablet Extended Release 24 Hour (toPROL XL)Indications:Essen tial hypertension with goal blood pressure less than 140/90,Atheroscleros is of [place] coronary artery of [place] heart without angina pectoris,Primary hypertension TAKE ONE TABLET BY MOUTH EVERY DAY 90 Tablet 1 05/31/2022 Active Rosuvastatin Calcium 40 MG Oral Tablet (Crestor)Indications :Dyslipidemia, goal LDL below 100 TAKE ONE TABLET BY MOUTH AT BEDTIME 90 Tablet 1 05/31/2022 Active Pantoprazole Sodium 40 MG Oral Tablet Delayed Release (Protonix)Indication s:Gastric ulcer without hemorrhage or perforation, unspecified chronicity,Gastroeso phageal reflux disease with esophagitis without hemorrhage TAKE ONE TABLET BY MOUTH TWICE DAILY 180 Tablet 1 05/31/2022 Active Loperamide HCl 2 MG Oral Tablet (Imodium A-D)Indications:Tobacco Dipper kev diarrhea One tablet four times a day as needed 60 Tablet 1 06/21/2022 Active Diphenoxylate-Atropi ne 2.5-0.025 MG Oral Tablet Take by mouth every 4 hours as needed for Diarrhea. Patient taking 1-2 tabs every 4 hours for diarrhea. 0 Active Polyethylene Glycol 3350 17 GM/SCOOP Oral Powder (MiraLax) Take 17 g by mouth as needed for Constipation. Dissolve one heaping tablespoon in 8 ounces of water or juice. 225 g 3 08/02/2022 Active amLODIPine Besylate 5 MG Oral Tablet (Norvasc) Take 1 Tablet by mouth in the morning. 0 Active Eliquis 5 MG Oral Tablet Take 1 Tablet by mouth in the morning and 1 Tablet before bedtime. 0 08/25/2022 Active busPIRone HCl 10 MG Oral Tablet (Buspar)Indications: Anxiety state TAKE ONE TABLET BY MOUTH TWICE DAILY 60 Tablet 5 09/22/2022 Active Gabapentin 300 MG Oral Capsule (Neurontin)Indicatio ns:DDD (degenerative disc disease), lumbar Take 1 Capsule by mouth in the morning and 1 Capsule at noon and 1 Capsule before bedtime. 90 Capsule 5 10/10/2022 Active Ondansetron HCl 4 MG Oral Tablet (Zofran)Indications: Nausea TAKE ONE TABLET BY MOUTH EVERY 6 HOURS NEEDED FOR nausea 30 Tablet 0 10/11/2022 Active traZODone HCl 100 MG Oral Tablet (Desyrel)Indications :Persistent insomnia One at bedtime 30 Tablet 5 10/11/2022 Active documented as of this encounter (statuses as of 11/01/2022) Active Problems Problem Noted Date Current moderate episode of major depressive disorder without prior episode 04/07/2022 Food insecurity 08/01/2021 Overview: Per [facility] Protocol Hypertensive heart and kidne y [...] discuss her pain concerns. She is aware [facility] does not manage chronic pain meds. With her history of confusion, would recommend against use of narcotic medication. Mild aortic stenosis 07/27/2021 Last Assessment & Plan: Following with cardiology Aortocoronary bypass status 03/09/2021 Chronic atrial fibrillation 03/01/2021 Overview: new onset, [facility] on apixaban Last Assessment & Plan: Rate 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[place] co ronary artery of [place] heart without angina pectoris Last Assessment & Plan: Stable no angina -continue rosuvastatin, metopropolol, Anxiety state Last Assessment & Plan: Stable on buspar, Primary hypertension Gastroesophageal reflux disease with eso phagitis without hemorrhage Last Assessment & Plan: symptoms controlled on pantoprazole Scoliosis of lumbar spine Mixed incontinence urge and stress (male )(female) documented as of this encounter (statuses as of 11/01/2022) Resolved Problems Problem Noted Date Resolved Date [...] ulcer 06/30/2014 06/26/2017 Overview: hgb 7.4 admitted [facility] CKD (chronic kidney disease) stage [...] as of this encounter (statuses as of 11/01/2022) Immunizations Name Administration Dates Next Due COVID-19 mRNA, LNP-s, No Pre serve, 2-Dose Series (Moderna) 04/04/2020,03/14/2020 Pneumococcal Conjugate Vacc, 13 Valent (Prevnar) 08/26/2014 Pneumococcal Polysaccharide PPV23 (Pneumovax) 10/26/2005 Seasonal Influenza, PF, 6 mo ns & Above, IM , (Flulaval) 03/13/2019,12/27/2017 Seasonal Influenza, Quadriva lent Hd (Fluzone [...] Sign Reading Time Taken Comments Blood Pressure 132/76 11/01/2022 11:42 AM EDT Pulse 80 11/01/2022 11:42 AM EDT Temperature 36.6 C (97.9 F) 11/01/2022 11:42 AM E DT Respiratory Rate 18 11/01/2022 11:42 AM EDT Oxygen Saturation 95% 11/01/2022 11:42 AM EDT Inhaled Oxygen Concentration - - Weight 74.6 kg (164 lb 6.4 oz) 11/01/2022 11:42 AM EDT Height - - Body Mass Index 31.06 07/06/2022 1:08 PM EDT documented in this encounter Progress Notes * Lana Lieberman RN - 11/01/2022 11:31 AM EDT Images from the original note were not included. [facility] Unit Director Visit Date: 11/01/2022 Time: 11:31 AM Name: Zoya Howard : 1938 Current Concerns: Patient seen for follow up- CHF, CKD, Osteoarthritis, Anxiety. Reports doing well. 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 HENT: Negative. Eyes: Negative. Respiratory: Positive for shortness of breath. Cardiovascular: Positive for leg swelling. Gastrointestinal: Negative. Endocrine: Negative. Genitourinary: Negative. Musculoskeletal: Negative. Skin: Negative. Allergic/Immunologic: Negative. Neurological: Negative. Physical Exam: BP 132/76 (BP Site: Right Arm, BP Position: Sitting, BP Cuff Size: Regular) | Pulse 80 | Temp 36.6 C (97.9 F) (Tympanic) | Resp 18 | Wt 74.6 kg (164 lb 6.4 oz) | SpO2 95% | BMI 31.06 kg/m | BSA1.79 m Pain 0 Physical Exam Cardiovascular: Rate and Rhythm: Normal rate. Pulses: Normal pulses. Heart sounds: Normal heart sounds. Pulmonary: Breath sounds: Normal breath sounds. Abdominal: General: Bowel sounds are normal. Palpations: Abdomen is soft. Musculoskeletal: General: Normal range of motion. Cervical back: Normal range of motion. Skin: General: Skin is warm and dry. Capillary Refill: Capillary refill takes 2 to 3 seconds. Neurological: General: No focal deficit present. Mental Status: She is alert and oriented to person, place, and time. Psychiatric: Mood and Affect: Mood normal. Behavior: Behavior normal. [facility] Completed this Visit: No. Routine visit Treatment/Plan: AMC scale daily Continue medications as prescribed Keep all upcoming MD appointments Low NA diet Elevate ble prn edema Fall precautions RN CM follow up in 4 weeks Home Interventions Provided: Reinforced current Plan of Care, including self-management and medication regimen Patient's Goals of Care: Get myself back to my normal "Get my memory managed on a short term basis" Improve my time management Patient's 'Red Flags': N&V unrelieved by Zofran Increase sob Increased edema BLE Patient Needs to Remember: Call [facility] with any medical concerns/ red flags Referrals Needed: N/a Follow Up: Is there cellular connectivity/connectivity in the home? Yes Does the patient have internet in the home? No Patient encouraged to call the intake phone number for all urgent but not emergent issues. Scheduled to follow up with patient in 4 weeks. Lana Schuler RN 11/01/2022 11:31 AM documented in this encounter Plan of Treatment Upcoming Encounters Date Type Specialty Care Team Description 11/29/2022 Home Visit [facility] Lana Lieberman RN [address] [place] [address] 01/29/2023 Office Visit Family Medicine Con Coughlin MD [address] [place] [address] [place] [address] 04/13/2023 Office Visit Family Medicine Marla Tan MD [address] [place] [address] [place] [address] 04/25/2023 Office Visit Nephrology Tirso Shah MD [address] [place] [address] Health Maintenance Due Date Last Done Comments DTaP,Tdap,and Td Vaccines (1 - Tdap) 11/15/1957 COVID-19 Vaccine (5 - Mixed Product series) 06/14/2020 04/19/2020, 04/04/2020, 03/22/2020, Additional history exists Depression Screening 09/29/2020 09/30/2019 Influenza Vaccine (FLU shot) (#1) 2022 01/10/2022, 11/18/2020, 12/06/2019, Additional history exists Albumin/Creatinine Ratio 07/28/2023 023, 06/09/2020, 03/13/2019, Additional history exists TSH 07/28/2023 07/27/2022, 05/21, 06/09/2020, Additional history exists CKD HGB USE SMARTSET 22817 10/05/202310/04, 10/04/2022, 07/06/2022, Additional history exists CKD PHOS USE SMARTSET 62270 10/05/202309/19, 06/08/2021, 09/07/2020, Additional history exists Pneumococcal [...] filedocumented as of this encounter Care Teams Direct Support Staff Relationship Specialty Start Date End Date Con Coughlin MD [address] [place] [address] [place] [phone] PCP - General Family Medicine 06/30/14 documented as of this encounter
--- OUTSIDE RECORDS SUMMARY | 2023-01-29 20:10 | External Medical Summary | Summary of Care ---
Author Name Unknown Organization [facility] Address [address] [place] [address] Phone [phone] Care Team Providers Care Safety Intern Name Role Phone Con Coughlin MD Primary Care Provider [phone] Reason for Visit * Reason Onset Date Comments [facility]: Maintenance 10/24/2022 Encounter Details Date Type Department Care Team Description 10/24/2022 Telephone Care Coordination [address] [place] [address] Ashley Castaneda [facility] Health Health Insurance Adjuster [address] [place] [address] [place] [phone] [facility]: Maintenance Allergies Active Allergy Reactions Severity Noted Date Comments Ergotamine 03/01/2000 vomit Nitroglycerin 03/14/2007 vomitting documented as of this encounter (statuses as of 2022) Medications Medication Sig Dispensed Refills Start Date [...] blood pressure less than 140/90,Atheroscleros is of [place] coronary artery of [place] heart without angina pectoris,Primary hypertension TAKE ONE [...] TWICE DAILY 180 Tablet 1 05/31/2022 Active Diphenoxylate-Atropi ne 2.5-0.025 MG Oral Tablet [...] as of this encounter (statuses as of 2022) Active Problems Problem Noted Date Current moderate episode of major depressive disorder without prior episode 04/07/2022 Food insecurity 08/01/2021 Overview: Per [facility] Protocol Hypertensive heart and kidne y [...] discuss her pain concerns. She is aware [facility] does not manage chronic pain meds. With her history of confusion, would recommend against use of narcotic medication. Mild aortic stenosis 07/27/2021 Last Assessment & Plan: Following with cardiology Aortocoronary bypass status 03/09/2021 Chronic atrial fibrillation 03/01/2021 Overview: new onset, [facility] on apixaban Last Assessment & Plan: Rate [...] as of this encounter (statuses as of 2022) Resolved Problems Problem Noted Date Resolved Date [...] ulcer 06/30/2014 06/26/2017 Overview: hgb 7.4 admitted [facility] CKD (chronic kidney disease) stage 3, GFR [...] as of this encounter (statuses as of 2022) Immunizations Name Administration Dates Next Due COVID-19 [...] Miscellaneous Notes * Telephone Encounter - TAM Foster - 2022 2:15 PM EDT Patient rescheduled for 12/12/22 at 1pm with KARELY Castaneda/González. TAM Foster documented in this encounter Plan of Treatment Upcoming Encounters Date Type Specialty Care Team Description 11/29/2022 Home Visit [facility] Lana Lieberman RN [address] [place] [phone] 12/12/2022 Telemedicine [facility] Anna Claudio CRNP [address] [place] [address] Ashley Castaneda [facility] Health Health Insurance Adjuster [address] [place] [address] [place] [phone] 01/29/2023 Office Visit Family Medicine Con Coughlin MD [address] [place] [address] [place] [address] 04/13/2023 Office Visit Family Medicine Marla Tan MD [address] [place] [address] [place] [address] 04/25/2023 Office Visit Nephrology Tirso Sahh MD [address] [place] [address] Health Maintenance Due Date Last Done Comments [...] Additional history exists CKD HGB USE SMARTSET 47529 10/05/202310/04, 10/04/2022, 07/06/2022, Additional history exists CKD PHOS USE SMARTSET 10677 10/05/202309/19, 06/08/2021, 09/07/2020, Additional history exists Pneumococcal [...] filedocumented as of this encounter Care Teams Safety Intern Relationship Specialty Start Date End Date Con Coughlin MD [address] [place] [address] [place] [address] PCP - General Family Medicine 06/30/14 documented as of this encounter
--- OUTSIDE RECORDS SUMMARY | 2023-01-29 20:10 | External Medical Summary | Summary of Care ---
Author Name Unknown Organization [facility] Address [address] [place] [address] Phone [phone] Care Team Providers Care Felling Machine Operator Name Role Phone Dipesh Garcia MD Primary Care Provider Reason for Visit * Reason Onset Date Comments Medication Refill 11/20/2022 Encounter Details Date Type Department Care Team Description 11/20/2022 Refill Family [address] [id number] Dipesh Garcia MD [address] [place], [place] [address] [address] Encounter for long-term (current) use of medications*; Dyslipidemia, goal LDL below 100; Primary hypertension; Atherosclerosis of [place] coronary artery of [place] heart without angina pectoris; Essential hypertension with goal blood pressure less than 140/90; Gastric ulcer without hemorrhage or perforation, unspecified chronicity; Gastroesophageal reflux disease with esophagitis without hemorrhage Allergies Active Allergy Reactions Severity Noted Date Comments Ergotamine 03/01/2000 vomit Nitroglycerin 03/14/2007 vomitting documented as of this encounter (statuses as of 11/20/2022) Medications Medication Sig Dispensed Refills Start Date End Date Status Acetaminophen 500 MG Oral Tablet (Tylenol) Take 1 Tab by mouth 3 times a day. 100 Tab 0 11/12/2020 Active Diphenoxylate-Atro pine 2.5-0.025 MG Oral Tablet Take by mouth [...] Tablet Extended Release 24 Hour (toPROL XL)Indications:Reema zoya hypertension,Ather osclerosis of [place] coronary artery of [place] heart without angina pectoris,Essential hypertension with goal [...] before bedtime. 180 Tablet 1 11/20/2022 Active Levothyroxine Sodium 100 MCG Oral Tablet (Levoxyl) TAKE ONE TABLET BY MOUTH EVERY DAY 90 Tablet 1 05/31/2022 3 Discontinue d(Refill) Metoprolol Succinate ER 25 MG Oral Tablet Extended Release 24 Hour (toPROL XL)Indications:Ess ential hypertension with goal blood pressure less than 140/90,Atheroscler osis of [place] coronary artery of [place] heart without angina pectoris,Primary hypertension TAKE ONE TABLET BY MOUTH EVERY DAY 90 Tablet 1 05/31/2022 3 Discontinue d(Refill) Rosuvastatin Calcium 40 MG Oral Tablet (Crestor)Indicatio ns:Dyslipidemia, goal LDL below 100 TAKE ONE TABLET BY MOUTH AT BEDTIME 90 Tablet 1 05/31/2022 3 Discontinue d(Refill) Pantoprazole Sodium 40 MG Oral Tablet Delayed Release (Protonix)Indicati ons:Gastric ulcer without hemorrhage or perforation, unspecified chronicity,Gastroe sophageal reflux disease with esophagitis without hemorrhage TAKE ONE TABLET BY MOUTH TWICE DAILY 180 Tablet 1 05/31/2022 3 Discontinue d(Refill) documented as of this encounter (statuses as of 11/20/2022) Active Problems Problem Noted Date Current moderate episode of major depressive disorder without prior episode 04/07/2022 Food insecurity 08/01/2021 Overview: Per [facility] Protocol Hypertensive heart and kidne [...] discuss her pain concerns. She is aware [facility] does not manage chronic pain meds. With her history of confusion, would recommend against use of narcotic medication. Mild aortic stenosis 07/27/2021 Last Assessment & Plan: Following with cardiology Aortocoronary bypass status 03/09/2021 Chronic atrial fibrillation 03/01/2021 Overview: new onset, [facility] on apixaban Last Assessment & Plan: Rate 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[place] co ronary artery of [place] heart without angina pectoris Last Assessment & Plan: Stable no angina -continue rosuvastatin, metopropolol, Anxiety state Last Assessment & Plan: Stable on buspar, Primary hypertension Gastroesophageal reflux disease with eso phagitis without hemorrhage Last Assessment & Plan: symptoms controlled on pantoprazole Scoliosis of lumbar spine Mixed incontinence urge and stress (male )(female) documented as of this encounter (statuses as of 11/20/2022) Resolved Problems Problem Noted Date Resolved Date [...] hgb 7.4 admitted [facility] CKD (chronic kidney disease) stage 3, GFR [...] as of this encounter (statuses as of 11/20/2022) Immunizations Name Administration Dates Next Due COVID-19 [...] encounter Miscellaneous Notes * Telephone Encounter - Delmer Valles MD [...] MUSE * Telephone Encounter - Mine Muse [facility] - 11/20/2022 5:12 PM EDT Pending Prescriptions: [...] MUSE * Telephone Encounter - Mine Muse [facility] - 11/20/2022 5:10 PM EDT Unable to [...] Tablet by mouth daily. Thank you, Mine Muse PharmD, MILLER Clinical Pharmacist [facility] ([facility]) (formerly Telepharmacy) 11/20/22 5:10 PM [phone] * Telephone Encounter - Mine Muse RP - 11/20/2022 5:08 PM EDT Per refill protocol patient needs vitamin B-12 lab on file within the past 2 years while using PPIs. Lab work ordered. Patient may obtain with next routine labs. Thank you, Mine Muse PharmD, MBA Clinical Pharmacist [facility] ([facility]) (formerly Telepharmacy) 11/20/22 5:08 PM [phone] * Telephone Encounter - Yolie Smallwood CPhT - 11/20/2022 1:20 PM EDT Pt requesting HIGH PRIORITY due to out med Did you pend patient's preferred pharmacy and medication before forwarding?yes Pharmacy: [facility], [address] [place]SEI Pending Prescriptions: Disp Refills [...] Lana Lieberman RN [address] [place] [id number] 12/12/2022 Telemedicine [facility] Anna Claudio CRNP [address] [place] [address] Ashley Castaneda, Community Health Acetone Recovery Worker [address] [place] [address] [place] [address] 01/29/2023 Office Visit Family Medicine Dipesh Garcia MD [address] [place] [address] [place] [address] 04/13/2023 Office Visit Family Medicine Marla Tan MD [address] [place] [address] [place] [address] 04/25/2023 Office Visit Nephrology Tirso Shah MD [address] [facility] [place] [address] Scheduled Orders Name Type Priority Associated Diagnoses [...] Additional history exists CKD HGB USE SMARTSET 40792 10/05/202310/04, 10/04/2022, 07/06/2022, Additional history exists CKD PHOS USE SMARTSET 49741 10/05/202309/19, 06/08/2021, 09/07/2020, Additional history exists Pneumococcal [...] Primary hypertension Unspecified essential hypertension Atherosclerosis of [place] coronary artery of [place] heart without angina pectoris Essential hypertension with goal blood pressure less than 140/90 Gastric ulcer without hemorrhage or perforation, unspecified chronicity Gastroesophageal reflux disease with esophagitis without hemorrhage documented in this encounter Care Teams Felling Machine Operator Relationship Specialty Start Date End Date Dipesh Garcia MD [address] [place] [address] [place] [phone] PCP - General Family Medicine 06/30/14 documented as of this encounter
--- OUTSIDE RECORDS SUMMARY | 2023-01-29 20:10 | External Medical Summary | Summary of Care ---
Author Name Unknown Organization [facility] Address [address] [place] [address] Phone [phone] Care Team Providers Care Moderate Needs Teacher Name Role Phone Con Coughlin MD Primary Care Provider [phone] Reason for Visit * Reason Comments [facility]: Maintenance Encounter Details Date Type Department Care Team Description 11/29/2022 Home Visit [facility], [facility] [address] [facility] [place] [address] Lana Lieberman RN [address] [facility] [place] [address] Allergies Active Allergy Reactions Severity Noted Date Comments Ergotamine 03/01/2000 vomit Nitroglycerin 03/14/2007 vomitting documented as of this encounter (statuses as of 12/01/2022) Medications Medication Sig Dispensed Refills Start Date [...] Hour (toPROL XL)Indications:Prim kat hypertension,Athero sclerosis of [place] coronary artery of [place] heart without angina pectoris,Essential hypertension with goal [...] as of this encounter (statuses as of 12/01/2022) Active Problems Problem Noted Date Current moderate [...] discuss her pain concerns. She is aware [facility] does not manage chronic pain meds. With 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[place] co ronary artery of [place] heart without angina pectoris Last Assessment & Plan: Stable no angina -continue rosuvastatin, metopropolol, Anxiety state Last Assessment & Plan: Stable on buspar, Primary hypertension Gastroesophageal reflux disease with eso phagitis without hemorrhage Last Assessment & Plan: symptoms controlled on pantoprazole Scoliosis of lumbar spine Mixed incontinence urge and stress (male )(female) documented as of this encounter (statuses as of 12/01/2022) Resolved Problems Problem Noted Date Resolved Date [...] as of this encounter (statuses as of 12/01/2022) Immunizations Name Administration Dates Next Due COVID-19 [...] Sign Reading Time Taken Comments Blood Pressure 142/78 11/29/2022 11:14 AM EDT Pulse 72 11/29/2022 11:14 AM EDT Temperature 36.7 C (98.1 F) 11/29/2022 11:14 AM E DT Respiratory Rate 18 11/29/2022 11:14 AM EDT Oxygen Saturation 96% 11/29/2022 11:14 AM EDT Inhaled Oxygen Concentration - - Weight - - Height - - Body Mass Index - - documented in this encounter Progress Notes * Lana Lieberman RN - 11/29/2022 10:31 AM EDT Images from the original note were not included. [facility] Carpenter General Visit Date: 11/29/2022 Time: 10:31 AM Name: Zoya Howard : 1938 Current Concerns: Patient seen for follow up- CHF, CKD, Osteoarthritis, Anxiety. Recent call into clinic regarding left hand arthritic pain- requesting analgesic. Per patient, painonly seems to bother her at bedtime. No swelling in joints noted. Reports she is using a salve thather friend had given her some time ago. Name- Phytoplex- Hydraguard- silicone cream Medication review- pill packs do not have Amlodipine included. Listed in [facility]- phone call to Dr. Adams to clarify. Patient was to be taking Amlodipine but did not go to follow up appointment so wasnot refilled. Patient is to be seen tomorrow by Dr. Adams. Will likely send script to [facility]. Patient aware if medication is prescribed- can take pill packs to pharmacy and they'll fix packs. Weight trigger- gain of approx 2.2 lbs. Asymptomatic- No edema noted to BLE Sob at baseline VS wnl Lungs clear bilaterally Sob with exertion Voiding without difficulty Bowels wnl- per report Appetite good Taking fluids well Problems/Symptoms: Review of Systems Constitutional: Negative. HENT: Negative. Eyes: Negative. Respiratory: Positive for shortness of breath. Endocrine: Negative. Genitourinary: Negative. Musculoskeletal: Negative. Skin: Negative. Allergic/Immunologic: Negative. Neurological: Negative. Hematological: Negative. Psychiatric/Behavioral: Negative. Physical Exam: BP 142/78 (BP Site: Right Arm, BP Position: Sitting, BP Cuff Size: Regular) | Pulse 72 | Temp 36.7 C (98.1 F) (Tympanic) | Resp 18 | SpO2 96% Pain 0 Physical Exam Constitutional: Appearance: Normal appearance. Cardiovascular: Rate and Rhythm: Normal rate. Rhythm irregular. Pulses: Normal pulses. Abdominal: General: Bowel sounds are normal. Palpations: Abdomen is soft. Musculoskeletal: Cervical back: Normal range of motion. Skin: General: Skin is warm and dry. Capillary Refill: Capillary refill takes 2 to 3 seconds. Neurological: General: No focal deficit present. Mental Status: She is alert and oriented to person, place, and time. Psychiatric: Mood and Affect: Mood normal. Behavior: Behavior normal. [facility]-10 Completed this Visit: No. No falls since last visit Treatment/Plan: Continue medications as prescribed- will await outcome of cardiology appointment tomorrow Keep all upcoming MD appointments Fall precautions Fluids encouraged Low na diet [facility] scale- daily Elevate ble prn edema RN CM follow up in 4 weeks. Home Interventions Provided: Reinforced current Plan of Care, including self-management and medication regimen Patient's Goals of Care: Get myself back to my normal "Get my memory managed on a short term basis" Improve my time management Patient's 'Red Flags': N&V unrelieved by Zofran Increase sob Increased edema BLE Patient Needs to Remember: Call [facility] with any medical concerns/ red flags Referrals Needed: N/a Follow Up: Is there cellular connectivity/connectivity in the home? Yes Does the patient have internet in the home? No Patient encouraged to call the intake phone number for all urgent but not emergent issues. Scheduled to follow up with patient in 4 weeks. Lana Schuler RN 11/29/2022 10:31 AM documented in this encounter Plan of Treatment Upcoming Encounters Date Type Specialty Care Team Description 12/05/2022 Office Visit Family Medicine Con Coughlin MD [address] [place] [address] [place] [phone] 12/12/2022 Telemedicine [facility] Anna Claudio CRNP [address] [place] [address] Ashley Castaneda Community [facility] Station Engineer [employer] [address] [place] [address] [place] [address] 12/28/2022 Home Visit [facility] Lana Lieberman RN [address] [place] [address] 01/29/2023 Office Visit Family Medicine Con Coughlin MD [address] [place] [address] [place] [phone] 04/13/2023 Office Visit Family Medicine Marla Tan MD [address] [place] [address] [place] [address] Health Maintenance Due Date Last Done Comments DTaP,Tdap,and Td Vaccines (1 - Tdap) 11/15/1957 Depression Screening 09/29/2020 09/30/2019 COVID-19 Vaccine (5 - season) 2022 04/19/2020, 04/04/2020, 03/22/2020, Additional history exists Influenza Vaccine (FLU shot) (#1) 2022 01/10/2022, 11/18/2020, 12/06/2019, Additional history exists Albumin/Creatinine Ratio 07/28/2023 023, 06/09/2020, 03/13/2019, Additional history exists TSH 07/28/2023 07/27/2022, 05/21, 06/09/2020, Additional history exists CKD HGB USE SMARTSET 32294 10/05/202310/04, 10/04/2022, 07/06/2022, Additional history exists CKD PHOS USE SMARTSET 34542 10/05/202309/19, 06/08/2021, 09/07/2020, Additional history exists Pneumococcal [...] filedocumented as of this encounter Care Teams Moderate Needs Teacher Relationship Specialty Start Date End Date Con Coughlin MD [address] [place] [address] [place] [address] PCP - General Family Medicine 06/30/14 documented as of this encounter
--- OUTSIDE RECORDS SUMMARY | 2023-01-29 20:10 | External Medical Summary | Summary of Care ---
Author Name Unknown Organization [facility] Address [address] [place] [address] Phone [phone] Care Team Providers Care Repair Servicer Name Role Phone Con Coughlin MD Primary Care Provider Reason for Visit * Reason Onset Date Comments Medication Question 11/24/2022 Encounter Details Date Type Department Care Team Description 11/24/2022 Telephone Family [address] [phone] Con Coughlin MD [address] [place], [place] [address] [id number] Medication Question Allergies Active Allergy Reactions Severity Noted Date Comments Ergotamine 03/01/2000 vomit Nitroglycerin 03/14/2007 vomitting documented as of this encounter (statuses as of 11/28/2022) Medications Medication Sig Dispensed Refills Start Date End Date Status Acetaminophen 500 MG Oral Tablet (Tylenol) Take 1 Tab by mouth 3 times a day. 100 Tab 0 11/12/2020 Active Diphenoxylate-Atropi ne 2.5-0.025 MG Oral Tablet [...] Loperamide HCl 2 MG Oral Tablet (Imodium A-D)Indications:Reconstructive Dentist kev diarrhea One tablet four times a [...] Active Rosuvastatin Calcium 10 MG Oral Tablet (Crestor)Indications :Dyslipidemia, goal LDL below 100 Take 1 Tablet by mouth daily. 90 Tablet 0 11/20/2022 Active Metoprolol Succinate ER 25 MG Oral Tablet Extended Release 24 Hour (toPROL XL)Indications:Prima ry hypertension,Atheros clerosis of [place] coronary artery of [place] heart without angina pectoris,Essential hypertension with goal blood pressure less than 140/90 Take 1 Tablet by mouth in the morning. 90 Tablet 3 11/20/2022 Active Pantoprazole Sodium 40 MG Oral Tablet Delayed Release (Protonix)Indication s:Gastric ulcer without hemorrhage or perforation, unspecified chronicity,Gastroeso phageal reflux disease with esophagitis without hemorrhage Take 1 Tablet by mouth in the morning and 1 Tablet before bedtime. 180 Tablet 1 11/20/2022 Active documented as of this encounter (statuses as of 11/28/2022) Active Problems Problem Noted Date Current moderate [...] discuss her pain concerns. She is aware [facility] does not manage chronic pain meds. With her history of confusion, would recommend against use of narcotic medication. Mild aortic stenosis 07/27/2021 Last Assessment & Plan: Following with cardiology Aortocoronary bypass status 03/09/2021 Chronic atrial fibrillation 03/01/2021 Overview: new onset, [facility] on apixaban Last Assessment & Plan: 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[place] co ronary artery of [place] heart without angina pectoris Last Assessment & Plan: Stable no angina -continue rosuvastatin, metopropolol, Anxiety state Last Assessment & Plan: Stable on buspar, Primary hypertension Gastroesophageal reflux disease with eso phagitis without hemorrhage Last Assessment & Plan: symptoms controlled on pantoprazole Scoliosis of lumbar spine Mixed incontinence urge and stress (male )(female) documented as of this encounter (statuses as of 11/28/2022) Resolved Problems Problem Noted Date Resolved Date [...] 06/30/2014 06/26/2017 Overview: hgb 7.4 admitted [facility] CKD (chronic kidney disease) stage 3, [...] as of this encounter (statuses as of 11/28/2022) Immunizations Name Administration Dates Next Due COVID-19 [...] Telephone Encounter - Maylin Barfield RN - 11/28/2022 4:44 PM EDT Attempted to call pt. She does have an appt with [facility] tomorrow and one to see Dr Coughlin next week * Telephone Encounter - Maylin Barfield RN - 11/27/2022 1:59 PM EDT Pt needs to schedule an appt to have hand evaluated * Telephone Encounter - Yolie Smallwood CPhT - 11/24/2022 11:52 AM EDT Pt requesting HIGH PRIORITY due to in so much pain Pt calling with complaints of left hand in a lot pain and Pt stated when she grabs any object on her left hand she's unable to hold object from the pain. Pt stated she been feeling like this since 11/18/22 and is requesting a medication for Pain be prescribed. Pt did want to schedule an appointment at this time. Call details was completed, please refer to this for further information. Thank you, Yolie Smallwood CPhT Shear Grinder Operator II [facility] ([facility]) (Formerly Telepharmacy) 11/24/2022,11:52 AM documented in this encounter Plan of Treatment Upcoming Encounters Date Type Specialty Care Team Description 11/29/2022 Home Visit [facility] Lana Lieberman RN [address] [place] [address] 12/05/2022 Office Visit Family Medicine Con Coughlin MD [address] [place] [address] [place] [address] 12/12/2022 Telemedicine [facility] Anna Claudio CRNP [address] [place] [address] Ashley Castaneda, Community Health Bailing Machine Operator [address] [place] [address] [place] [address] 01/29/2023 Office Visit Family Medicine Con Coughlin MD [address] [place] [address] [place] [address] 04/13/2023 Office Visit Family Medicine Marla Tan MD [address] [place] [address] [place] [address] Health Maintenance Due Date Last Done Comments [...] Additional history exists CKD HGB USE SMARTSET 45199 10/05/202310/04, 10/04/2022, 07/06/2022, Additional history exists CKD PHOS USE SMARTSET 38977 10/05/202309/19, 06/08/2021, 09/07/2020, Additional history exists Pneumococcal [...] as of this encounter Care Teams Repair Servicer Relationship Specialty Start Date End Date Con Coughlin MD [address] [place] [address] [place] [address] PCP - General Family Medicine 06/30/14 documented as of this encounter
--- OUTSIDE RECORDS SUMMARY | 2023-01-29 20:10 | External Medical Summary | Summary of Care ---
Author Name Unknown Organization [facility] Address [address] [place] [address] Phone [phone] Care Team Providers Care Roof Panel Hanger Name Role Phone Con Garcia MD Primary Care Provider Reason for Visit * Reason Comments eRx-Medication Refill Encounter Details Date Type Department Care Team Description 11/20/2022 Refill Family Medicine [address] [phone] Con Garcia MD [address] [place], [place] [address] [address] Nausea Allergies Active Allergy Reactions Severity Noted Date Comments Ergotamine 03/01/2000 vomit Nitroglycerin 03/14/2007 vomitting documented as of this encounter (statuses as of 11/21/2022) Medications Medication Sig Dispensed Refills Start Date End Date Status Acetaminophen 500 MG Oral Tablet (Tylenol) Take 1 Tab by mouth 3 times a day. 100 Tab 0 11/12/2020 Active Diphenoxylate-Atr opine 2.5-0.025 MG Oral Tablet [...] Hour (toPROL XL)Indications:Pr imary hypertension,Athe rosclerosis of [place] coronary artery of [place] heart without angina pectoris,Essentia l hypertension with [...] before bedtime. 180 Tablet 1 11/20/2022 Active Ondansetron HCl 4 MG Oral Tablet (Zofran)Indicatio ns:Nausea TAKE ONE TABLET BY MOUTH EVERY 6 HOURS NEEDED FOR nausea 30 Tablet 0 10/11/2022 3 Discontinued documented as of this encounter (statuses as of 11/21/2022) Active Problems Problem Noted Date Current moderate episode of major depressive disorder without prior episode 04/07/2022 Food insecurity 08/01/2021 Overview: Per [facility] Protocol Hypertensive heart and kidne [...] her pain concerns. She is aware [facility] does not manage chronic pain meds. With her history of confusion, would recommend against use of narcotic medication. Mild aortic stenosis 07/27/2021 Last Assessment & Plan: Following with cardiology Aortocoronary bypass status 03/09/2021 Chronic atrial fibrillation 03/01/2021 Overview: new onset, [facility] on apixaban Last Assessment & Plan: Rate 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[place] co ronary artery of [place] heart without angina pectoris Last Assessment & Plan: Stable no angina -continue rosuvastatin, metopropolol, Anxiety state Last Assessment & Plan: Stable on buspar, Primary hypertension Gastroesophageal reflux disease with eso phagitis without hemorrhage Last Assessment & Plan: symptoms controlled on pantoprazole Scoliosis of lumbar spine Mixed incontinence urge and stress (male )(female) documented as of this encounter (statuses as of 11/21/2022) Resolved Problems Problem Noted Date Resolved Date [...] 06/30/2014 06/26/2017 Overview: hgb 7.4 admitted [facility] CKD (chronic kidney disease) stage 3, GFR [...] as of this encounter (statuses as of 11/21/2022) Immunizations Name Administration Dates Next Due COVID-19 [...] encounter Miscellaneous Notes * Telephone Encounter - Brigido Ling [facility] - 11/21/2022 9:04 AM EDTSigned Prescriptions: Disp Refills Ondansetron HCl 4 MG Oral Tablet (Zofran) 30 Tab*1 Sig: TAKE ONETABLET BY MOUTH EVERY 6 HOURS NEEDED FOR nauseaAuthorizing Provider: CON GARCIA User: BRIGIDO AGEE documented in this encounter Plan of Treatment Upcoming Encounters Date Type Specialty Care Team Description 11/29/2022 Home Visit [facility] Lana Lieberman RN [address] [place] [id number] 12/12/2022 Telemedicine [facility] Anna Claudio CRNP [address] [place] [address] [facility] Bread Pan Greaser [address] [place] [address] [place] [address] 01/29/2023 Office Visit Family Medicine Con Garcia MD [address] [place] [address] [place] [address] 04/13/2023 Office Visit Family Medicine Marla Tan MD [address] [place] [address] [place] [address] 04/25/2023 Office Visit Nephrology Tirso Shah MD [address] [place] [address] Health Maintenance Due Date Last Done Comments [...] Additional history exists CKD HGB USE SMARTSET 16306 10/05/202310/04, 10/04/2022, 07/06/2022, Additional history exists CKD PHOS USE SMARTSET 78453 10/05/202309/19, 06/08/2021, 09/07/2020, Additional history exists Pneumococcal [...] encounter Visit Diagnoses Diagnosis Nausea Nausea alone documented in this encounter Care Teams Roof Panel Hanger Relationship Specialty Start Date End Date Con Garcia MD [address] [place] [address] [place] [address] PCP - General Family Medicine 06/30/14 documented as of this encounter
--- OUTSIDE RECORDS SUMMARY | 2023-01-29 20:10 | External Medical Summary | Summary of Care ---
Author Name Unknown Organization [facility] Address [address] [place] [address] Phone [phone] Care Team Providers Care Breed To Wean Production Technician Name Role Phone Con Coughlin MD Primary Care Provider Reason for Visit * Reason Onset Date Comments Medication Refill 11/23/2022 Encounter Details Date Type Department Care Team Description 11/23/2022 Refill Family [address] [phone] Con Coughlin MD [address] [place], [place] [address] [address] Allergies Active Allergy Reactions Severity Noted Date Comments Ergotamine 03/01/2000 vomit Nitroglycerin 03/14/2007 vomitting documented as of this encounter (statuses as of 11/23/2022) Medications Medication Sig Dispensed Refills Start Date [...] Loperamide HCl 2 MG Oral Tablet (Imodium A-D)Indications:Fourth Hand kev diarrhea One tablet four times a [...] Hour (toPROL XL)Indications:Prima ry hypertension,Atheros clerosis of [place] coronary artery of [place] heart without angina pectoris,Essential hypertension with goal [...] as of this encounter (statuses as of 11/23/2022) Active Problems Problem Noted Date Current moderate [...] discuss her pain concerns. She is aware [facility] does not manage chronic pain meds. With her history of confusion, would recommend against use of narcotic medication. Mild aortic stenosis 07/27/2021 Last Assessment & Plan: Following with cardiology Aortocoronary bypass status 03/09/2021 Chronic atrial fibrillation 03/01/2021 Overview: new onset, [facility] on apixaban Last Assessment & Plan: 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[place] co ronary artery of [place] heart without angina pectoris Last Assessment & Plan: Stable no angina -continue rosuvastatin, metopropolol, Anxiety state Last Assessment & Plan: Stable on buspar, Primary hypertension Gastroesophageal reflux disease with eso phagitis without hemorrhage Last Assessment & Plan: symptoms controlled on pantoprazole Scoliosis of lumbar spine Mixed incontinence urge and stress (male )(female) documented as of this encounter (statuses as of 11/23/2022) Resolved Problems Problem Noted Date Resolved Date [...] 06/30/2014 06/26/2017 Overview: hgb 7.[address] [facility] CKD (chronic kidney disease) stage 3, [...] as of this encounter (statuses as of 11/23/2022) Immunizations Name Administration Dates Next Due COVID-19 [...] encounter Miscellaneous Notes * Telephone Encounter - MIGUEL Jacques - 11/23/2022 1:25 PM EDT Pt calling to request zofran. Informed pt that RX is available at their pharmacy. Pt verbalized understanding and stated they will check with their pharmacy regarding this medication. Thank you, Edna Ramsay [facility] Shot Core Drill Operator Helper II [facility]Formerly [facility]) 11/23/2022,1:26 PM documented in this encounter Plan of Treatment Upcoming Encounters Date Type Specialty Care Team Description 11/29/2022 Home Visit [facility] Lana Lieberman RN [address] [place] [address] 12/05/2022 Office Visit Family Medicine Con Coughlin MD [address] [place] [address] [place] [address] 12/12/2022 Telemedicine [facility] Anna Claudio CRNP [address] [place] [address] [facility] Fibreglass Gun Hand [address] [place] [address] [place] [address] 01/29/2023 Office Visit Family Con Borges MD [address] [place] [address] [place] [address] 04/13/2023 Office Visit Family Medicine Marla Tan MD [address] [place] [address] [place] [address] 04/25/2023 Office Visit Nephrology Tirso Shah MD [address] [place] [address], [place] [address] Health Maintenance Due Date Last Done Comments [...] Additional history exists CKD HGB USE SMARTSET 14668 10/05/202310/04, 10/04/2022, 07/06/2022, Additional history exists CKD PHOS USE SMARTSET 55425 10/05/202309/19, 06/08/2021, 09/07/2020, Additional history exists Pneumococcal [...] filedocumented as of this encounter Care Teams Breed To Wean Production Technician Relationship Specialty Start Date End Date Con Coughlin MD [address] [place] [address] [place] [address] PCP - General Family Medicine 06/30/14 documented as of this encounter
--- OUTSIDE RECORDS SUMMARY | 2023-01-29 20:10 | External Medical Summary | Summary of Care ---
Author Name Unknown Organization [facility] Address [address] [place] [address] Phone [phone] Care Team Providers Care Stave Cutting Supervisor Name Role Phone Dipesh Garcia MD Primary Care Provider Reason for Visit * Reason Onset Date Comments Medication Refill 11/20/2022 Encounter Details Date Type Department Care Team Description 11/20/2022 Refill Family [address] [phone] Dipesh Garcia MD [address] [place], [place] [address] [address] Encounter for long-term (current) use of medications*; Dyslipidemia, goal LDL below 100; Primary hypertension; Atherosclerosis of [place] coronary artery of [place] heart without angina pectoris; Essential hypertension with [...] Hour (toPROL XL)Indications:Pr imary hypertension,Athe rosclerosis of [place] coronary artery of [place] heart without angina pectoris,Essentia l hypertension with [...] blood pressure less than 140/90,Atheroscle rosis of [place] coronary artery of [place] heart without angina pectoris,Primary hypertension TAKE ONE [...] episode 04/07/2022 Food insecurity 08/01/2021 Overview: Per [facility] Protocol Hypertensive heart and kidne [...] discuss her pain concerns. She is aware [facility] does not manage chronic pain meds. With her history of confusion, would recommend against use of narcotic medication. Mild aortic stenosis 07/27/2021 Last Assessment & Plan: Following with cardiology Aortocoronary bypass status 03/09/2021 Chronic atrial fibrillation 03/01/2021 Overview: new onset, [facility] on apixaban Last Assessment & Plan: 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[place] co ronary artery of [place] heart without angina pectoris Last [...] ulcer 06/30/2014 06/26/2017 Overview: hgb 7.4 admitted [facility] CKD (chronic kidney disease) stage 3, [...] Telephone Encounter - Mine Muse RPh - 11/21/2022 9:10 AM EDT Tried to call patient about Statin dose change; LMOVM. If patient calls back please transfer to myself, if I am not available please select next [facility]. Please advise of dose change, lipid panel previously ordered Thank you, Mine Muse, PharmD, MILLER Clinical Pharmacist [facility] ([facility]) (formerly Telepharmacy) 11/21/22 9:11 AM [phone] * Telephone Encounter - Delmer Valles MD [...] MUSE * Telephone Encounter - Mine Muse [facility] - 11/20/2022 5:12 PM EDT Pending [...] Tablet before bedtime. Authorizing Provider: DIPESH GARCIA User: MINE MUSE * Telephone Encounter - Mine Muse RP - 11/20/2022 5:10 PM EDT Unable to [...] mouth daily. Thank you, Mine Muse PharmD, MBA Clinical Pharmacist [facility] ([facility]) (formerly [employer] 11/20/22 5:10 PM [phone] * Telephone Encounter - Mine Muse RP - 11/20/2022 5:08 PM EDT Per refill protocol patient needs vitamin B-12 lab on file within the past 2 years while using PPIs. Lab work ordered. Patient may obtain with next routine labs. Thank you, Mine Muse PharmD, MBA Clinical Pharmacist [facility] ([facility]) (formerly [employer]) 11/20/22 5:08 PM [phone] * Telephone Encounter - Yolie Smallwood CPhT - 11/20/2022 1:20 PM EDT Pt requesting HIGH PRIORITY due to out med Did you pend patient's preferred pharmacy and medication before forwarding?yes Pharmacy: [facility], [address] [place] Pending Prescriptions: Disp Refills [...] Home Lana Lieberman RN [address] [place] [address] 12/12/2022 Telemedicine [facility] Anna Claudio CRNP [address] [place] [address] [facility] Hand Iii Cutter [address] [place] [address] [place] [address] 01/29/2023 Office Visit Family Medicine Dipesh Garcia MD [address] [place] [address] [place] [address] 04/13/2023 Office Visit Family Medicine Marla Tan MD [address] [place] [address] [place] [address] 04/25/2023 Office Visit Nephrology Tirso Shah MD [address] [facility] [place] [address] Scheduled Orders Name Type Priority Associated Diagnoses [...] Additional history exists CKD HGB USE SMARTSET 41908 10/05/202310/04, 10/04/2022, 07/06/2022, Additional history exists CKD PHOS USE SMARTSET 62604 10/05/202309/19, 06/08/2021, 09/07/2020, Additional history exists Pneumococcal [...] Primary hypertension Unspecified essential hypertension Atherosclerosis of [place] coronary artery of [place] heart without angina pectoris Essential hypertension with goal blood pressure less than 140/90 Gastric ulcer without hemorrhage or perforation, unspecified chronicity Gastroesophageal reflux disease with esophagitis without hemorrhage documented in this encounter Care Teams Stave Cutting Supervisor Relationship Specialty Start Date End Date Dipesh Garcia MD [address] [place] [address] [place] [address] PCP - General Family Medicine 06/30/14 documented as of this encounter
--- OUTSIDE RECORDS SUMMARY | 2023-01-29 20:10 | External Medical Summary | Summary of Care ---
Author Name Unknown Organization [facility] Address [address] [place] [address] Phone [phone] Care Team Providers Care Slot Floorman Name Role Phone Con Garcia MD Primary Care Provider [phone] Reason for Visit * Reason Onset Date Comments Medication Refill 11/07/2022 Encounter Details Date Type Department Care Team Description 11/07/2022 Refill Family [address] [phone] Con Garcia MD [address] [place] [address] [place] [address] Chronic diarrhea Allergies Active Allergy Reactions Severity Noted Date Comments Ergotamine 03/01/2000 vomit Nitroglycerin 03/14/2007 vomitting documented as of this encounter (statuses as of 11/07/2022) Medications Medication Sig Dispensed Refills Start Date [...] blood pressure less than 140/90,Atheroscler osis of [place] coronary artery of [place] heart without angina pectoris,Primary hypertension TAKE ONE TABLET BY MOUTH EVERY DAY 90 Tablet 1 05/31/2022 Active Rosuvastatin Calcium 40 MG Oral Tablet (Crestor)Indicatio ns:Dyslipidemia, goal LDL below 100 TAKE ONE TABLET BY MOUTH AT BEDTIME 90 Tablet 1 05/31/2022 Active Pantoprazole Sodium 40 MG Oral Tablet Delayed Release (Protonix)Indicati ons:Gastric ulcer without hemorrhage or perforation, unspecified chronicity,Gastroe sophageal reflux disease with esophagitis without hemorrhage TAKE ONE TABLET BY MOUTH TWICE DAILY 180 Tablet 1 05/31/2022 Active Diphenoxylate-Atro pine 2.5-0.025 MG Oral Tablet [...] as needed 60 Tablet 1 11/07/2022 Active Loperamide HCl 2 MG Oral Tablet (Imodium A-D)Indications:Ch ronic diarrhea One tablet four times a day as needed 60 Tablet 1 06/21/2022 3 Discontinue d(Refill) documented as of this encounter (statuses as of 11/07/2022) Active Problems Problem Noted Date Current moderate [...] discuss her pain concerns. She is aware [facility] does not manage chronic pain meds. With her history of confusion, would recommend against use of narcotic medication. Mild aortic stenosis 07/27/2021 Last Assessment & Plan: Following with cardiology Aortocoronary bypass status 03/09/2021 Chronic atrial fibrillation 03/01/2021 Overview: new onset, [facility] on apixaban Last Assessment & 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[place] co ronary artery of [place] heart without angina pectoris Last Assessment & Plan: Stable no angina -continue rosuvastatin, metopropolol, Anxiety state Last Assessment & Plan: Stable on buspar, Primary hypertension Gastroesophageal reflux disease with eso phagitis without hemorrhage Last Assessment & Plan: symptoms controlled on pantoprazole Scoliosis of lumbar spine Mixed incontinence urge and stress (male )(female) documented as of this encounter (statuses as of 11/07/2022) Resolved Problems Problem Noted Date Resolved Date [...] ulcer 06/30/2014 06/26/2017 Overview: hgb 7.4 admitted [facility] CKD (chronic kidney disease) stage [...] as of this encounter (statuses as of 11/07/2022) Immunizations Name Administration Dates Next Due COVID-19 [...] Telephone Encounter - Con Garcia MD - 11/07/2022 2:24 PM EDTSigned Prescriptions: Disp Refills Loperamide HCl 2 MG Oral Tablet (Imodium A*60 Tab*1 Sig: One tablet four times a day as needed Authorizing Provider: CON GARCIA * Telephone Encounter - Yolie Small[place] CPhT - 11/07/2022 2:21 PM EDT Pt requesting HIGH PRIORITY due to out of med Did you pend patient's preferred pharmacy and medication before forwarding?yes Pharmacy: [facility], [address] [place] Pending Prescriptions: Disp Refills Loperamide HCl 2 MG Oral Tablet (Imodium *60 Tab*1 Sig: One tablet four times a day as needed Last Visit: 10/10/2022 (in office), Visit date not found (telemedicine) Next Visit: 01/29/2023 If no future appointments scheduled, and last appointment is greater than a year ago, please schedule patient for a follow-up appointment Last date the medication was ordered: 06/21/22 Is this request for a controlled substance?No [...] Home Lana Lieberman RN [address] [place] [address] 01/29/2023 Office Visit Family Medicine Con Garcia MD [address] [place] [address] [place] [phone] 04/13/2023 Office Visit Family Medicine Marla Tan MD [address] [place] [address] [place] [phone] 04/25/2023 Office Visit Nephrology Tirso Shah [facility] [address] Health Maintenance Due Date Last Done Comments [...] Additional history exists CKD HGB USE SMARTSET 53966 10/05/202310/04, 10/04/2022, 07/06/2022, Additional history exists CKD PHOS USE SMARTSET 62457 10/05/202309/19, 06/08/2021, 09/07/2020, Additional history exists Pneumococcal [...] of this encounter Visit Diagnoses Diagnosis Chronic diarrhea Diarrhea documented in this encounter Care Teams Slot Floorman Relationship Specialty Start Date End Date Con Garcia MD [address] [place] [address] [place] [address] PCP - General Family Medicine 06/30/14 documented as of this encounter
--- OUTSIDE RECORDS SUMMARY | 2023-01-29 20:11 | External Medical Summary | Summary of Care ---
Author Name Unknown Organization [facility] Address [address] [place] [address] Phone [phone] Care Team Providers Care Academy Director Name Role Phone Con Garcia MD Primary Care Provider Reason for Visit * Reason Onset Date Comments Advice 10/11/2022 Requesting call back from Dr. Aponte nurse regarding sleeping medication. Pt only sleeping 2 hours a night, & 30 pd weight gain. Encounter Details Date Type Department Care Team Description 10/11/[address] [address] Con Garcia MD [address] [place] [address] [place] [id number] Advice (Requesting call back from Dr. Hodge... Allergies Active Allergy Reactions Severity Noted Date Comments Ergotamine 03/01/2000 vomit Nitroglycerin 03/14/2007 vomitting documented as of this encounter (statuses as of 10/11/2022) Medications Medication Sig Dispensed Refills Start Date [...] blood pressure less than 140/90,Atheroscler osis of [place] coronary artery of [...] as needed 60 Tablet 1 06/21/2022 Active Diphenoxylate-Atro pine 2.5-0.025 MG Oral Tablet Take by mouth every 4 hours as needed for Diarrhea. Patient taking 1-2 tabs every 4 hours for diarrhea. 0 Active Ondansetron HCl 4 MG Oral Tablet (Zofran)Indication s:Nausea TAKE ONE TABLET BY MOUTH EVERY 6 HOURS NEEDED FOR nausea 30 Tablet 0 07/13/2022 Active Polyethylene Glycol 3350 17 GM/SCOOP Oral [...] at bedtime 30 Tablet 5 10/11/2022 Active Zolpidem Tartrate 5 MG Oral Tablet (Ambien) Take 1 Tablet by mouth at bedtime as needed for Sleep. 0 3 Discontinue d(End of Procedure) documented as of this encounter (statuses as of 10/11/2022) Active Problems Problem Noted Date Current moderate episode of major depressive disorder without prior episode 04/07/2022 Food insecurity 08/01/2021 Overview: Per [facility] Protocol Hypertensive heart and kidne y [...] discuss her pain concerns. She is aware [facility] does not manage chronic pain meds. With her history of confusion, would recommend against use of narcotic medication. Mild aortic stenosis 07/27/2021 Last Assessment & Plan: Following with cardiology Aortocoronary bypass status 03/09/2021 Chronic atrial fibrillation 03/01/2021 Overview: new onset, [facility] on apixaban Last Assessment & Plan: [...] as of this encounter (statuses as of 10/11/2022) Resolved Problems Problem Noted Date Resolved Date [...] 06/30/2014 06/26/2017 Overview: hgb 7.4 admitted [facility] CKD (chronic kidney disease) stage 3, [...] as of this encounter (statuses as of 10/11/2022) Immunizations Name Administration Dates Next Due COVID-19 [...] encounter Miscellaneous Notes * Addendum Note - Con Garcia MD - 10/11/2022 1:56 PM EDTAddended by: CON GARCIA on: 10/11/2022 01:56 PM Modules accepted: Orders * Telephone Encounter - Con Garcia MD - 10/11/2022 1:54 PM EDT Yeah that might be true. He last prescribed that on 08/31/2022. Then I don't have a problem refilling the trazodone i will give her 100 mg instead of 50 mg and see if that helps. * Telephone Encounter - Rula Cosby CMA - 10/11/2022 1:45 PM EDT Provider to address: Patient wants to know what she should do for sleep. She is down to 2 trazodone. She says isn't even taking the zolpidem. Dr Adams is her tool dispatcher. She is also asking if youwill give her some zofran because she is nauseated. Reason for Call: Advice (Requesting call back from Dr. Aponte nurse regarding sleeping medication. Pt only sleeping 2 hours a night, & 30 pd weight gain. ) Contact: Telephone Call Contact Type: Medication Outcome: sent back to Dr. Garcia Total Time including non face to face (minutes): 5 * Telephone Encounter - Con Garcia MD - 10/11/2022 11:[address] Adams has been prescribing the Zolpidem, not us. I am not adding something else. * Telephone Encounter - Rivka Blackmon LPN - 10/11/2022 10:44 AM EDT See below- pt forgot to mention things yesterday at her appt. Any recommendations? Concerns with weight gain & not sleeping. Trazodone is not listed on pts med list. It says d/c in July Zolpidem is listed as historical Provider to address: PCP Reason for Call: Advice (Requesting call back from Dr. Aponte nurse regarding sleeping medication. Pt only sleeping 2 hours a night, & 30 pd weight gain. ) Contact: Telephone Call Contact Type: Follow-up Outcome: message sent to PCP to reveiw Total Time including non face to face (minutes): 15 * Telephone Encounter - TAM Britt - 10/11/2022 8:41 AM EDT Pt calling requesting a call back from PCP's nurse - pt would like to speak to her concerning sleepschedule - Pt is not sleeping at night all but two hours, and is exhausted during the day. Pt is also concerned with her 30 pound weight gain in 3 months that she did not get to mention yesterday at her apt. Pt taking trazadone for sleep as prescribed at last visit - states it is not doing anything- takes 1 right before bed time , and 1 about 3 hours later. Pt states she is still up all night. Please advise. [phone] documented in this encounter Plan of Treatment Upcoming Encounters Date Type Specialty Care Team Description 10/24/2022 Telemedicine [facility] Anna Claudio CRNP [address] [facility] [place] [address] Ashley Castaneda, Community Health Instrument Maker [address] [place] [address] [place] [address] 10/30/2022 Home Visit [facility] Lana Lieberman, [facility] [facility] [address] 01/29/2023 Office Visit Family Medicine Con Garcia MD [address] [place] [address] [place] [address] 04/13/2023 Office Visit Family Medicine Marla Tan MD [address] [place] [address] [place] [address] 04/25/2023 Office Visit Nephrology Tirso Shah MD 200 [facility] [place] [address] Health Maintenance Due Date Last Done Comments DTaP,Tdap,and Td Vaccines (1 - Tdap) 11/15/1957 COVID-19 Vaccine (5 - Mixed Product series) 06/14/2020 04/19/2020, 04/04/2020, 03/22/2020, Additional history exists Depression Screening, Annual for Pts 12 and Over 09/29/2020 09/30/2019 Influenza Vaccine (FLU shot) (#1) 2022 01/10/2022, 11/18/2020, 12/06/2019, Additional history exists Albumin/Creatinine Ratio 07/28/2023 023, 06/09/2020, 03/13/2019, Additional history exists TSH 07/28/2023 07/27/2022, 05/21, 06/09/2020, Additional history exists CKD HGB USE SMARTSET 25626 10/05/202310/04, 10/04/2022, 07/06/2022, Additional history exists CKD PHOS USE SMARTSET 71500 10/05/202309/19, 06/08/2021, 09/07/2020, Additional history exists Pneumococcal [...] sleep documented in this encounter Care Teams Academy Director Relationship Specialty Start Date End Date Con Garcia MD [address] [place] [address] [place] [address] PCP - General Family Medicine 06/30/14 documented as of this encounter
--- OUTSIDE RECORDS SUMMARY | 2023-01-29 20:11 | External Medical Summary | Summary of Care ---
Author Name Unknown Organization [facility] Address [address] [place] [address] Phone [phone] Care Team Providers Care Landscape Photographer Name Role Phone Con Coughlin MD Primary Care Provider Reason for Visit * Reason Onset Date Comments Advice 10/11/2022 Requesting call back from Dr. Aponte nurse regarding sleeping medication. Pt only sleeping 2 hours a night, & 30 pd weight gain. Encounter Details Date Type Department Care Team Description 10/11/[address] [address] Con Coughlin MD [address] [place] [address] [place] [address] Advice (Requesting call back from Dr. Hodge... 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 0 Active Diphenoxylate-Atropi ne 2.5-0.025 MG Oral Tablet [...] before bedtime. 90 Capsule 5 10/10/2022 Active documented as of this encounter (statuses [...] discuss her pain concerns. She is aware [facility] does not manage chronic pain meds. With her history of confusion, would recommend against use of narcotic medication. 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 Please advise. [phone] documented in this encounter Plan of Treatment Upcoming Encounters Date Type Specialty Care Team Description 10/24/2022 Telemedicine [facility] Anna Claudio CRNP [address] [place] [address] Ashley Castaneda Community Health Checkroom Chief [address] [place] [address] [place] [address] 10/30/2022 Home Visit [facility] [address] [facility] [place] [address] 01/29/2023 Office Visit Family Medicine Con Coughlin MD [address] [place] [address] [place] [address] 04/13/2023 Office Visit Family Medicine Marla Tan MD [address] [place] [address] [place] [address] 04/25/2023 Office Visit Nephrology Tirso Shah MD [address] [facility] [address] [place] [address] Health Maintenance Due Date Last Done Comments [...] Additional history exists CKD HGB USE SMARTSET 44203 10/05/202310/04, 10/04/2022, 07/06/2022, Additional history exists CKD PHOS USE SMARTSET 43622 10/05/202309/19, 06/08/2021, 09/07/2020, Additional history exists Pneumococcal [...] filedocumented as of this encounter Care Teams Landscape Photographer Relationship Specialty Start Date End Date Con Coughlin MD [address] [place] [address] [place] [address] PCP - General Family Medicine 06/30/14 documented as of this encounter
--- OUTSIDE RECORDS SUMMARY | 2023-01-29 20:11 | External Medical Summary | Summary of Care ---
Author Name Unknown Organization [facility] Address [address] [place] [address] Phone [phone] Care Team Providers Care Cutting Machine Tender Name Role Phone Con Coughlin MD Primary Care Provider Reason for Visit * Reason Onset Date Comments Advice 10/11/2022 Requesting call back from Dr. Aponte nurse regarding sleeping medication. Pt only sleeping 2 hours a night, & 30 pd weight gain. Encounter Details Date Type Department Care Team Description 10/11/[address] [address] Con Coughlin MD [address] [place] [address] [place] [address] Advice (Requesting call back from Dr. Hodge... [...] blood pressure less than 140/90,Atheroscleros is of [place] coronary artery of [place] heart without angina pectoris,Primary hypertension TAKE ONE [...] Loperamide HCl 2 MG Oral Tablet (Imodium A-D)Indications:Roving Weight Gauger kev diarrhea One tablet four times a [...] discuss her pain concerns. She is aware [facility] does not manage chronic pain meds. 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[place] co ronary artery of [place] heart without angina pectoris Last Assessment & [...] Miscellaneous Notes * Telephone Encounter - Con Coughlin MD - 10/11/2022 11:[address] [...] is still up all night. Please advise. [phone] documented in this encounter Plan of Treatment Upcoming Encounters Date Type Specialty Care Team Description 10/24/2022 Telemedicine [facility] Anna Claudio CRNP [address] [place] [address] Ashley Castaneda Community Health Retail Sales Professional [address] [place] [address] [place] [address] 10/30/2022 Home Visit [facility] aLna Lieberman, RN [address] [facility] [place] [address] 01/29/2023 Office Visit Family Medicine Con Coughlin MD [address] [place] [address] [place] [address] 04/13/2023 Office Visit Family Medicine Marla Tan MD [address] [place] [address] [place] [address] 04/25/2023 Office Visit [facility]rology [facility] [address] [facility] [address] Health Maintenance Due Date Last Done Comments [...] Additional history exists CKD HGB USE SMARTSET 49308 10/05/202310/04, 10/04/2022, 07/06/2022, Additional history exists CKD PHOS USE SMARTSET 54738 10/05/202309/19, 06/08/2021, 09/07/2020, Additional history exists Pneumococcal [...] filedocumented as of this encounter Care Teams Cutting Machine Tender Relationship Specialty Start Date End Date Con Coughlin MD [address] [place] [address] [place] [address] PCP - General Family Medicine 06/30/14 documented as of this encounter
--- OUTSIDE RECORDS SUMMARY | 2023-01-29 20:11 | External Medical Summary | Summary of Care ---
Author Name Unknown Organization [facility] Address [address] [place] [address] Phone [phone] Care Team Providers Care Plastics Patternmaker Name Role Phone Con Garcia MD Primary Care Provider Reason for Visit * Reason Onset Date Comments Advice 10/11/2022 Requesting call back from Dr. Aponte nurse regarding sleeping medication. Pt only sleeping 2 hours a night, & 30 pd weight gain. Encounter Details Date Type Department Care Team Description 10/11/[address] [address] Con Garcia MD [address] [place] [address] [place] [id number] Advice (Requesting call back from Dr. Hodge... Allergies Active Allergy Reactions Severity Noted Date Comments Ergotamine 03/01/2000 vomit Nitroglycerin 03/14/2007 vomitting documented as of this encounter (statuses as of 10/11/2022) Medications Medication Sig Dispensed Refills Start Date End Date Status Acetaminophen 500 MG Oral Tablet (Tylenol) Take 1 Tab by mouth 3 times a day. 100 Tab 0 1 Active Levothyroxine Sodium 100 MCG Oral Tablet (Levoxyl) TAKE ONE TABLET BY MOUTH EVERY DAY 90 Tablet 1 3 Active Metoprolol Succinate ER 25 MG Oral Tablet Extended Release 24 Hour (toPROL XL)Indications:Es sential hypertension with goal blood pressure less than 140/90,Atheroscle rosis of [place] coronary artery of [place] heart without angina pectoris,Primary hypertension TAKE ONE TABLET BY MOUTH EVERY DAY 90 Tablet 1 3 Active Rosuvastatin Calcium 40 MG Oral Tablet (Crestor)Indicati ons:Dyslipidemia, goal LDL below 100 TAKE ONE TABLET BY MOUTH AT BEDTIME 90 Tablet 1 3 Active Pantoprazole Sodium 40 MG Oral Tablet Delayed Release (Protonix)Indicat ions:Gastric ulcer without hemorrhage or perforation, unspecified chronicity,Gastro esophageal reflux disease with esophagitis without hemorrhage TAKE ONE TABLET BY MOUTH TWICE DAILY 180 Tablet 1 3 Active Loperamide HCl 2 MG Oral Tablet (Imodium A-D)Indications:C hronic diarrhea One tablet four times a day as needed 60 Tablet 1 3 Active Diphenoxylate-Atr opine 2.5-0.025 MG Oral Tablet [...] at bedtime 30 Tablet 5 3 Active Zolpidem Tartrate 5 MG Oral Tablet (Ambien) Take 1 Tablet by mouth at bedtime as needed for Sleep. 0 10/12/19 23 Discontinued(End of Procedure) Ondansetron HCl 4 MG Oral Tablet (Zofran)Indicatio ns:Nausea TAKE ONE TABLET BY MOUTH EVERY 6 HOURS NEEDED FOR nausea 30 Tablet 0 3 10/12/19 23 Discontinued documented as of this encounter (statuses as of 10/11/2022) Active Problems Problem Noted Date Current moderate episode of major depressive disorder without prior episode 04/07/2022 Food insecurity 08/01/2021 Overview: Per [facility] Protocol Hypertensive heart and kidne [...] discuss her pain concerns. She is aware [facility] does not manage chronic pain meds. With her history of confusion, would recommend against use of narcotic medication. 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 * Addendum Note - Con Garcia MD [...] taking the zolpidem. Dr Adams is her well driller. She is also asking if youwill give [...] is still up all night. Please advise. [phone] documented in this encounter Plan of Treatment Upcoming Encounters Date Type Specialty Care Team Description 10/24/2022 Telemedicine [facility] Anna Claudio CRNP [address] [place] [address] Ashley Castaneda, Community Health Photoengraver Apprentice [address] [place] [address] [place] [address] 10/30/2022 Home Visit [facility] Lana Lieberman, KHARI [address] [facility] [place] [address] 01/29/2023 Office Visit Family Medicine Con Garcia MD [address] [place] [address] [place] [address] 04/13/2023 Office Visit Family Medicine Marla Tan MD [address] [place] [address] [place] [address] 04/25/2023 Office Visit Nephrology Tirso Shah MD [address] [place] [address] Health Maintenance Due Date Last Done Comments [...] Additional history exists CKD HGB USE SMARTSET 11188 10/05/202310/04, 10/04/2022, 07/06/2022, Additional history exists CKD PHOS USE SMARTSET 89879 10/05/202309/19, 06/08/2021, 09/07/2020, Additional history exists Pneumococcal [...] sleep documented in this encounter Care Teams Plastics Patternmaker Relationship Specialty Start Date End Date Con Garcia MD [address] [place] [address] [place] [phone] PCP - General Family Medicine 06/30/14 documented as of this encounter
--- OUTSIDE RECORDS SUMMARY | 2023-01-29 20:11 | External Medical Summary | Summary of Care ---
Author Name Unknown Organization [facility] Address [address] [place] [address] Phone [phone] Care Team Providers Care Dredge Pump Operator Name Role Phone Con Coughlin MD Primary Care Provider Reason for Visit * Reason Comments eRx-Medication Refill Encounter Details Date Type Department Care Team Description 10/11/2022 Refill Family Medicine [address] [address] Con Coughlin MD [address] [place] [address] [place] [address] Nausea Allergies Active Allergy Reactions Severity [...] blood pressure less than 140/90,Atheroscle rosis of [place] coronary artery of [place] heart without angina pectoris,Primary hypertension TAKE ONE [...] as needed 60 Tablet 1 06/21/2022 Active Diphenoxylate-Atr opine 2.5-0.025 MG Oral Tablet [...] at bedtime 30 Tablet 5 10/11/2022 Active Ondansetron HCl 4 MG Oral Tablet (Zofran)Indicatio ns:Nausea TAKE ONE TABLET BY MOUTH EVERY 6 HOURS NEEDED FOR nausea 30 Tablet 0 07/13/2022 3 Discontinued documented as of this encounter [...] discuss her pain concerns. She is aware [facility] does not manage chronic pain meds. With her history of confusion, would recommend against use of narcotic medication. 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 documented in this encounter Plan of Treatment Upcoming Encounters Date Type Specialty Care Team Description 10/24/2022 Telemedicine [facility] Anna Claudio CRNP [address] [facility] [place] [address] Ashley Castaneda Community Health Railcar Brake Operator [address] [place] [address] [place] [address] 10/30/2022 Home Visit [facility] Lana Lieberman, [facility] [facility] [address] 01/29/2023 Office Visit Family Medicine Con Coughlin MD [address] [place] [address] [place] [address] 04/13/2023 Office Visit Family Medicine Marla Tan MD [address] [place] [address] [place] [address] 04/25/2023 Office Visit Nephrology Tirso Shah MD [address] [facility] [place] [address] Health Maintenance Due Date Last Done Comments [...] Additional history exists CKD HGB USE SMARTSET 90665 10/05/202310/04, 10/04/2022, 07/06/2022, Additional history exists CKD PHOS USE SMARTSET 85141 10/05/202309/19, 06/08/2021, 09/07/2020, Additional history exists Pneumococcal [...] alone documented in this encounter Care Teams Dredge Pump Operator Relationship Specialty Start Date End Date Con Coughlin MD [address] [place] [address] [place] [address] PCP - General Family Medicine 06/30/14 documented as of this encounter
--- OUTSIDE RECORDS SUMMARY | 2023-01-29 20:11 | External Medical Summary | Summary of Care ---
Author Name Unknown Organization [facility] Address [address] [place] [address] Phone [phone] Care Team Providers Care Md Psychiatry Name Role Phone Con Coughlin MD Primary Care Provider Reason for Visit * Reason Onset Date Comments Advice 10/11/2022 Requesting call back from Dr. Aponte nurse regarding sleeping medication. Pt only sleeping 2 hours a night, & 30 pd weight gain. Encounter Details Date Type Department Care Team Description 10/11/[address] [address] Con Coughlin MD [address] [place] [address] [place] [address] Advice (Requesting call back from Dr. Hodge... 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 She is aware [facility] does not manage chronic pain meds. With her history of confusion, would recommend against use of narcotic medication. 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 Please advise. [phone] documented in this encounter Plan of Treatment Upcoming Encounters Date Type Specialty Care Team Description 10/24/2022 Telemedicine [facility] Anna Claudio CRNP [address] [place] [address] Ashley Castaneda, Community Health [address] [place] [phone] 10/30/2022 Home Visit [facility] Lana Lieberman, RN [address] [facility] [place] [address] 01/29/2023 Office Visit Family Medicine Con Coughlin MD [address] [place] [address] [place] [address] 04/13/2023 Office Visit Family Medicine Marla Tan MD [address] [place] [address] [place] [address] 04/25/2023 Office Visit Nephrology Tirso Shah MD 200 [place] [address] Health Maintenance Due Date Last Done Comments [...] Additional history exists CKD HGB USE SMARTSET 73794 10/05/202310/04, 10/04/2022, 07/06/2022, Additional history exists CKD PHOS USE SMARTSET 33184 10/05/202309/19, 06/08/2021, 09/07/2020, Additional history exists Pneumococcal [...] filedocumented as of this encounter Care Teams Md Psychiatry Relationship Specialty Start Date End Date Con Coughlin MD [address] [place] [address] [place] [address] PCP - General Family Medicine 06/30/14 documented as of this encounter
--- OUTSIDE RECORDS SUMMARY | 2023-01-29 20:11 | External Medical Summary | Summary of Care ---
Author Name Unknown Organization [facility] Address [address] [place] [address] Phone [phone] Care Team Providers Care Magisterial District Judge Name Role Phone Con Coughlin MD Primary Care Provider [phone] Reason for Visit * Reason Onset Date Comments Appointment 10/10/2022 Encounter Details Date Type Department Care Team Description 10/10/2022 Telephone [facility], [facility] [address] [place] [address] Services, Scheduling [address] [place] [address] Appointment (/) Allergies Active Allergy Reactions Severity Noted Date Comments Ergotamine 03/01/2000 vomit Nitroglycerin 03/14/2007 vomitting documented as of this encounter (statuses as of 10/10/2022) Medications Medication Sig Dispensed Refills Start Date End Date Status Acetaminophen 500 MG Oral Tablet (Tylenol) Take 1 Tab by mouth 3 times a day. 100 Tab 0 11/12/2020 Active Diclofenac Sodium 1 % External Gel (Voltaren) Apply topically to affected area 4 g in the morning AND 4 g at noon AND 4 g in the evening AND 4 g before bedtime. Apply to hip. 100 g 3 06/06/2021 Active Additional Information Patient not taking.Reported on 10/04/2022 DIURETIC TITRATION PLAN If no improvement on day 3, contact heart failure managing provider. 1 Each 0 09/15/2021 Active Levothyroxine Sodium 100 MCG Oral Tablet (Levoxyl) TAKE ONE TABLET BY MOUTH EVERY DAY 90 Tablet 1 05/31/2022 Active Metoprolol Succinate ER 25 MG Oral Tablet Extended Release 24 Hour (toPROL XL)Indications:Esse ntial hypertension with goal blood pressure less than 140/90,Atherosclero sis of [place] coronary artery of [place] heart without angina pectoris,Primary hypertension TAKE ONE TABLET BY MOUTH EVERY DAY 90 Tablet 1 05/31/2022 Active Rosuvastatin Calcium 40 MG Oral Tablet (Crestor)Indication s:Dyslipidemia, goal LDL below 100 TAKE ONE TABLET BY MOUTH AT BEDTIME 90 Tablet 1 05/31/2022 Active Pantoprazole Sodium 40 MG Oral Tablet Delayed Release (Protonix)Indicatio ns:Gastric ulcer without hemorrhage or perforation, unspecified chronicity,Gastroes ophageal reflux disease with esophagitis without hemorrhage TAKE ONE TABLET BY MOUTH TWICE DAILY 180 Tablet 1 05/31/2022 Active Loperamide HCl 2 MG Oral Tablet (Imodium A-D)Indications:Chr onic diarrhea One tablet four times a day as needed 60 Tablet 1 06/21/2022 Active Zolpidem Tartrate 5 MG Oral Tablet (Ambien) Take 1 Tablet by mouth at bedtime as needed for Sleep. 0 Active Diphenoxylate-Atrop ine 2.5-0.025 MG Oral Tablet [...] by mouth in the morning. 0 Active Gabapentin 300 MG Oral Capsule (Neurontin)Indicati ons:DDD (degenerative disc disease), lumbar TAKE ONE CAPSULE BY MOUTH TWICE DAILY 60 Capsule 5 08/28/2022 Active Eliquis 5 MG Oral Tablet Take 1 Tablet by mouth in the morning and 1 Tablet before bedtime. 0 08/25/2022 Active busPIRone HCl 10 MG Oral Tablet (Buspar)Indications :Anxiety state TAKE ONE TABLET BY MOUTH TWICE DAILY 60 Tablet 5 09/22/2022 Active documented as of this encounter (statuses as of 10/10/2022) Active Problems Problem Noted Date Current moderate [...] her pain concerns. She is aware [facility] does not manage chronic pain meds. With her history of confusion, would recommend against use of narcotic medication. 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[place] co ronary artery of [place] heart without angina pectoris Last Assessment & Plan: Stable no angina -continue rosuvastatin, metopropolol, Anxiety state Last Assessment & Plan: Stable on buspar, Primary hypertension Gastroesophageal reflux disease with eso phagitis without hemorrhage Last Assessment & Plan: symptoms controlled on pantoprazole Scoliosis of lumbar spine Mixed incontinence urge and stress (male )(female) documented as of this encounter (statuses as of 10/10/2022) Resolved Problems Problem Noted Date Resolved Date [...] 06/26/2017 Overview: hgb 7.4 admitted [facility] CKD (chronic kidney disease) stage 3, [...] as of this encounter (statuses as of 10/10/2022) Immunizations Name Administration Dates Next Due COVID-19 [...] Miscellaneous Notes * Telephone Encounter - TAM Stewart - 10/10/2022 3:31 PM EDT Per Request to reschedule appt... Called lmom to confirm if 10/30 at 4:00pm is a good date and time. documented in this encounter Plan of Treatment Upcoming Encounters Date Type Specialty Care Team Description 10/10/2022 Office Visit Family Con Borges MD [address] [place] [address] [place] [address] 10/24/2022 Telemedicine [facility] Anna Claudio CRNP [address] [place] [address] Ashley Castaneda Community Health Reactor Kettle Operator [address] [place] [address] [place] [address] 10/30/2022 Home Visit [facility] Lana Lieberman, RN [address] [place] [address] 01/29/2023 Office Visit Family Con Borges MD [address] [place] [address] [place] [address] 04/25/2023 Office Visit Nephrology Tirso Shah MD [address] [place] [address] Health Maintenance Due Date Last Done Comments [...] Additional history exists CKD HGB USE SMARTSET 13103 10/05/202310/04, 10/04/2022, 07/06/2022, Additional history exists CKD PHOS USE SMARTSET 77327 10/05/202309/19, 06/08/2021, 09/07/2020, Additional history exists Pneumococcal [...] filedocumented as of this encounter Care Teams Magisterial District Judge Relationship Specialty Start Date End Date Con Coughlin MD [address] [place] [address] [place] [address] PCP - General Family Medicine 06/30/14 documented as of this encounter
--- OUTSIDE RECORDS SUMMARY | 2023-01-29 20:11 | External Medical Summary | Summary of Care ---
Author Name Unknown Organization [facility] Address [address] [place] [address] Phone [phone] Care Team Providers Care Family Independence Case Manager Name Role Phone Con Garcia MD Primary Care Provider Reason for Visit * Reason Onset Date Comments Advice 10/11/2022 Requesting call back from Dr. Aponte nurse regarding sleeping medication. Pt only sleeping 2 hours a night, & 30 pd weight gain. Encounter Details Date Type Department Care Team Description 10/11/[address] [address] Con Garcia MD [address] [place] [address] [place] [id number] Advice (Requesting call back from Dr. Hodge... [...] blood pressure less than 140/90,Atheroscle rosis of [place] coronary artery of [place] heart without angina pectoris,Primary hypertension TAKE ONE [...] episode 04/07/2022 Food insecurity 08/01/2021 Overview: Per [facility] Protocol Hypertensive heart and kidne [...] pain concerns. She is aware [facility] does not manage chronic pain meds. With her history of confusion, would recommend against use of narcotic medication. Mild aortic stenosis 07/27/2021 Last Assessment & Plan: Following with cardiology Aortocoronary bypass status 03/09/2021 Chronic atrial fibrillation 03/01/2021 Overview: new onset, [facility] on apixaban Last Assessment & Plan: 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[place] co ronary artery of [place] heart without angina pectoris Last Assessment & [...] ulcer 06/30/2014 06/26/2017 Overview: hgb 7.4 admitted [facility] CKD (chronic kidney disease) stage 3, [...] left her a message to call back [phone]. * Addendum Note - Con Garcia MD [...] taking the zolpidem. Dr Adams is her registration rep. She is also asking if youwill give [...] is still up all night. Please advise. [phone] documented in this encounter Plan of Treatment Upcoming Encounters Date Type Specialty Care Team Description 10/24/2022 Telemedicine [facility] Anna Claudio CRNP [address] [place] [address] Ashley Castaneda, Community Health Pugger Helper [address] [place] [address] [place] [address] 10/30/2022 Home Visit [facility] Lana Lieberman, KHARI [address] [facility] [place] [address] 01/29/2023 Office Visit Family Medicine Con Garcia MD [address] [place] [address] [place] [address] 04/13/2023 Office Visit Family Medicine Marla Tan MD [address] [place] [address] [place] [address] 04/25/2023 Office Visit Nephrology Tirso Shah MD [address] [place] [address] Health Maintenance Due Date Last Done Comments [...] Additional history exists CKD HGB USE SMARTSET 48941 10/05/202310/04, 10/04/2022, 07/06/2022, Additional history exists CKD PHOS USE SMARTSET 37598 10/05/202309/19, 06/08/2021, 09/07/2020, Additional history exists Pneumococcal [...] sleep documented in this encounter Care Teams Family Independence Case Manager Relationship Specialty Start Date End Date Con Garcia MD [address] [place] [address] [place] [phone] PCP - General Family Medicine 06/30/14 documented as of this encounter
--- OUTSIDE RECORDS SUMMARY | 2023-01-29 20:11 | External Medical Summary | Summary of Care ---
Author Name Unknown Organization [facility] Address [address] [place] [address] Phone [phone] Care Team Providers Care Sorting Cows Worker Name Role Phone Con Coughlin MD Primary Care Provider Reason for Visit * Reason Comments eRx-Medication Refill Encounter Details Date Type Department Care Team Description 10/11/2022 Refill Family Medicine [address] [address] Con Coughlin MD [address] [place] [address] [place] [address] Nausea Allergies Active Allergy Reactions Severity [...] blood pressure less than 140/90,Atheroscle rosis of [place] coronary artery of [place] heart without angina pectoris,Primary hypertension TAKE ONE [...] discuss her pain concerns. She is aware [facility] does not manage chronic pain meds. With her history of confusion, would recommend against use of narcotic medication. Mild aortic stenosis 07/27/2021 Last Assessment & Plan: Following with cardiology Aortocoronary bypass status 03/09/2021 Chronic atrial fibrillation 03/01/2021 Overview: new onset, [facility] on apixaban Last Assessment & 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[place] co ronary artery of [place] heart without angina pectoris Last Assessment & [...] Overview: hgb 7.4 admitted [facility] CKD (chronic kidney disease) stage [...] Home Anna Claudio CRNP [address] [facility] [place] [address] Ashley Castaneda Community Health Pit Shovel Operator [address] [place] [address] [place] [address] 10/30/2022 Home Visit [facility] Lana Lieberman, RN [address] [facility] [address] 01/29/2023 Office Visit Family Medicine Con Coughlin MD [address] [place] [address] [place] [address] 04/13/2023 Office Visit Family Medicine Marla Tan MD [address] [place] [address] [place] [address] 04/25/2023 Office Visit Nephrology Tirso Shah MD [address] [facility] [place] [address] Health Maintenance Due Date Last Done Comments [...] Additional history exists CKD HGB USE SMARTSET 94494 10/05/202310/04, 10/04/2022, 07/06/2022, Additional history exists CKD PHOS USE SMARTSET 89274 10/05/202309/19, 06/08/2021, 09/07/2020, Additional history exists Pneumococcal [...] alone documented in this encounter Care Teams Sorting Cows Worker Relationship Specialty Start Date End Date Con Coughlin MD [address] [place] [address] [place] [address] PCP - General Family Medicine 06/30/14 documented as of this encounter
--- OUTSIDE RECORDS SUMMARY | 2023-01-29 20:11 | External Medical Summary | Summary of Care ---
Author Name Unknown Organization [facility] Address [address] [place] [address] Phone [phone] Care Team Providers Care Coordinating Producer Name Role Phone Con Coughlin MD Primary Care Provider Reason for Visit * Reason Onset Date Comments Advice 10/11/2022 Requesting call back from Dr. Aponte nurse regarding sleeping medication. Pt only sleeping 2 hours a night, & 30 pd weight gain. Encounter Details Date Type Department Care Team Description 10/11/[address] [address] Con Coughlin MD [address] [place] [address] [place] [address] Advice (Requesting call back from Dr. Hodge... [...] blood pressure less than 140/90,Atheroscleros is of [place] coronary artery of [place] heart without angina pectoris,Primary hypertension TAKE ONE [...] Loperamide HCl 2 MG Oral Tablet (Imodium A-D)Indications:Lithographed Plate Inspector kev diarrhea One tablet four times a [...] discuss her pain concerns. She is aware [facility] does not manage chronic pain meds. With her history of confusion, would recommend against use of narcotic medication. Mild aortic stenosis 07/27/2021 Last Assessment & Plan: Following with cardiology Aortocoronary bypass status 03/09/2021 Chronic atrial fibrillation 03/01/2021 Overview: new onset, [facility] on apixaban Last Assessment 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[place] co ronary artery of [place] heart without angina pectoris Last Assessment & [...] ulcer 06/30/2014 06/26/2017 Overview: hgb 7.4 admitted [facility] CKD (chronic kidney disease) [...] taking the zolpidem. Dr Adams is her corporate events director. She is also asking if youwill give her some zofran because she is nauseated. Reason for Call: Advice (Requesting call back from Dr. Aponte nurse regarding sleeping medication. Pt only sleeping 2 hours a night, & 30 pd weight gain. ) Contact: Telephone Call Contact Type: Medication Outcome: sent back to Dr. Coughlin Total Time including non face to face (minutes): 5 * Telephone Encounter - Con Coughlin MD [...] Call: Advice (Requesting call back from Dr. Fadi rivero regarding sleeping medication. Pt only sleeping 2 [...] is still up all night. Please advise. [phone] documented in this encounter Plan of Treatment Upcoming Encounters Date Type Specialty Care Team Description 10/24/2022 Telemedicine [facility] Anna Claudio CRNP [address] [facility] [place] [address] Ashley Castaneda Community Health Driller And Reamer [address] [place] [address] [place] [address] 10/30/2022 Home Visit [facility] Lana Lieberman, RN [address] [place] [address] 01/29/2023 Office Visit Family Medicine Con Coughlin MD [address] [place] [address] [place] [address] 04/13/2023 Office Visit Family Medicine Marla Tan MD [address] [place] [address] [place] [address] 04/25/2023 Office Visit [facility] [address] [facility] [address] Health Maintenance Due Date Last Done Comments [...] Additional history exists CKD HGB USE SMARTSET 10389 10/05/202310/04, 10/04/2022, 07/06/2022, Additional history exists CKD PHOS USE SMARTSET 00660 10/05/202309/19, 06/08/2021, 09/07/2020, Additional history exists Pneumococcal [...] filedocumented as of this encounter Care Teams Coordinating Producer Relationship Specialty Start Date End Date Con Coughlin MD [address] [place] [address] [place] [address] PCP - General Family Medicine 06/30/14 documented as of this encounter
--- OUTSIDE RECORDS SUMMARY | 2023-01-29 20:11 | External Medical Summary | Summary of Care ---
Author Name Unknown Organization [facility] Address [address] [place] [address] Phone [phone] Care Team Providers Care Rn Plastic Surgery Name Role Phone Con Coughlin MD Primary Care Provider [phone] Reason for Visit * Reason Onset Date Comments No Show No Show 10/27/2022 Encounter Details Date Type Department Care Team Description 10/24/2022 Telemedicine [facility] [place] [address] [place] [address] Anna Claudio CRNP [address] [place] [address] Ashley Castaneda Community Health Newspaper Journalist [address] [place] [address] [place] [address] NO SHOW/FAILED TO KEEP APPOINTMENT* Allergies Active Allergy Reactions Severity Noted Date Comments Ergotamine 03/01/2000 vomit Nitroglycerin 03/14/2007 vomitting documented as of this encounter (statuses as of 10/27/2022) Medications Medication Sig Dispensed Refills Start Date [...] blood pressure less than 140/90,Atheroscleros is of [place] coronary artery of [place] heart without angina pectoris,Primary hypertension TAKE ONE [...] Loperamide HCl 2 MG Oral Tablet (Imodium A-D)Indications:Contact Center Rep kev diarrhea One tablet four times a [...] as of this encounter (statuses as of 10/27/2022) Active Problems Problem Noted Date Current moderate [...] discuss her pain concerns. She is aware [facility] does not manage chronic pain 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[place] co ronary artery of [place] heart without angina pectoris Last Assessment & Plan: Stable no angina -continue rosuvastatin, metopropolol, Anxiety state Last Assessment & Plan: Stable on buspar, Primary hypertension Gastroesophageal reflux disease with eso phagitis without hemorrhage Last Assessment & Plan: symptoms controlled on pantoprazole Scoliosis of lumbar spine Mixed incontinence urge and stress (male )(female) documented as of this encounter (statuses as of 10/27/2022) Resolved Problems Problem Noted Date Resolved Date [...] as of this encounter (statuses as of 10/27/2022) Immunizations Name Administration Dates Next Due COVID-19 [...] as of this encounter Progress Notes * Renetta Rodriguez Health Newspaper Journalist - 10/24/2022 5:35 PM EDT Patient failed to keep scheduled appointment. documented in this encounter Plan of Treatment Upcoming Encounters Date Type Specialty Care Team Description 10/30/2022 Home Visit [facility] Lana Lieberman RN [address] [place] [address] 01/29/2023 Office Visit Family Medicine Con Coughlin MD [address] [place] [address] [place] [address] 04/13/2023 Office Visit Family Medicine Marla Tan MD [address] [place] [address] [place] [address] 04/25/2023 Office Visit Nephrology Tirso Shah MD [address] [place] [address] Health Maintenance Due Date Last Done Comments [...] Additional history exists CKD HGB USE SMARTSET 87745 10/05/202310/04, 10/04/2022, 07/06/2022, Additional history exists CKD PHOS USE SMARTSET 75341 10/05/202309/19, 06/08/2021, 09/07/2020, Additional history exists Pneumococcal [...] as of this encounter Visit Diagnoses Diagnosis NO SHOW/FAILED TO KEEP APPOINTMENT- Primary documented in this encounter Care Teams Rn Plastic Surgery Relationship Specialty Start Date End Date Con Coughlin MD [address] [place] [address] [place] [address] PCP - General Family Medicine 06/30/14 documented as of this encounter
--- OUTSIDE RECORDS SUMMARY | 2023-01-29 20:11 | External Medical Summary | Summary of Care ---
Author Name Unknown Organization [facility] Address [address] [place] [address] Phone [phone] Care Team Providers Care Towerman Name Role Phone Con Coughlin MD Primary Care Provider Reason for Visit * Reason Comments Acute Pt c/o worsening art hritis in left hand; difficulty walking, left energy, less strength x 8 days, as of yesterday the walking got worse, unsteady; incontinence at night 5-6 times, once she stands she becomes incontinent, saw Dr. Tirso Shah for this and discussed age related shrinking of muscles in the bladder, he did order a UA. Encounter Details Date Type Department Care Team Description 10/10/2022 Office Visit Family Medicine [address] [id number] Con Coughlin MD [address] [place] [address] [place] [address] Chronic atrial fibrillation (HCC)*; DDD (degenerative disc disease), lumbar; Other idiopathic scoliosis, lumbar region; Acquired hypothyroidism; DYSLIPIDEMIA, GOAL LDL BELOW 100; Primary hypertension; Low back pain radiating to left leg; Gastroesophageal reflux disease with esophagitis without hemorrhage; Hypertensive heart and kidney disease with chronic diastolic congestive heart failure and stage 3b chronic kidney disease (HCC) Allergies Active Allergy Reactions Severity Noted Date [...] blood pressure less than 140/90,Atheroscler osis of [place] coronary artery of [place] heart without angina pectoris,Primary hypertension TAKE ONE [...] bedtime as needed for Sleep. 0 Active Diphenoxylate-Atro pine 2.5-0.025 MG Oral Tablet [...] before bedtime. 90 Capsule 5 10/10/2022 Active Diclofenac Sodium 1 % External Gel (Voltaren) Apply topically to affected area 4 g in the morning AND 4 g at noon AND 4 g in the evening AND 4 g before bedtime. Apply to hip. 100 g 3 06/06/2021 3 Discontinue d(Patient preference/ discontinua tion) DIURETIC TITRATION PLAN If no improvement on day 3, contact heart failure managing provider. 1 Each 0 09/15/2021 3 Discontinue d(End of Procedure) Gabapentin 300 MG Oral Capsule (Neurontin)Indicat ions:DDD (degenerative disc disease), lumbar TAKE ONE CAPSULE BY MOUTH TWICE DAILY 60 Capsule 5 08/28/2022 3 Discontinue d(Refill) documented as of this encounter (statuses as of 10/10/2022) Active Problems Problem Noted Date Current moderate episode of major depressive disorder without prior episode 04/07/2022 Food insecurity 08/01/2021 Overview: Per [facility] Protocol Hypertensive heart and kidne y [...] [place] on apixaban Last Assessment & Plan: Rate 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[place] co ronary artery of [place] heart without angina pectoris Last Assessment & [...] Sign Reading Time Taken Comments Blood Pressure 124/62 10/10/2022 4:26 PM EDT Pulse 88 10/10/2022 4:26 PM EDT Temperature 37.1 C (98.8 F) 10/10/2022 4:26 PM ED T Respiratory Rate - - Oxygen Saturation 98% 10/10/2022 4:26 PM EDT Inhaled Oxygen Concentration - - Weight - - Height - - Body Mass Index - - documented in this encounter Progress Notes * Con Coughlin MD - 10/10/2022 4:33 PM EDT She is getting Zolpidem from Dr Adams. He was able to stop the diuretics. She was feeling a little stronger until a daily or so ago where she became more unsteady. She is trying to get PT at home. She has no urinary issues during the day and then at night goes a bunch. I think that is fluid redistributing from gravity. There is no way I am considering getting her back on opioids. Her head is somuch clearer when she talks. She wonders about the Eliquis but she has Atril Fib. Denies nausea, vomiting, or diarrhea. Denies fevers, chills or sweats. No chest pain or dyspnea. The left hand started hurting a lot worse than her usual arthritis. Past Medical History: Diagnosis Date Acute on chronic combined systolic and diastolic CHF (congestive heart failure) ([facility]) 03/28/2021 admitted [facility] Anxiety state Anxiety State Aortic valve stenosis, mild 03/01/2021 Aortocoronary bypass status Atherosclerosis of [place] coronary artery of [place] heart without angina pectoris Atrial fibrillation ([facility]) 12/09/2020 during admission [place] Benign hypertension with CKD (chronic kidney disease) stage III ([facility]) Cataract cortical, senile Chronic atrial fibrillation ([facility]) 03/01/2021 new onset, [facility] on apixaban CKD (chronic kidney disease) stage 3, GFR 30-59 ml/min ([facility]) 07/03/2013 GFR 36.9 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 11/01/2020 Coronary atherosclerosis CAD Cystitis 09/16/2018 >100,000 enterococcus pansensitive Cystitis 08/03/2020 10-100,000 E coli pansensitive Depressive disorder, not elsewhere classified Depression Gastric ulcer 06/30/2014 hgb 7.4 admitted [facility] Herpes zoster without complication 11/18/2020 right hip Hypertension goal BP (blood pressure) < 140/90 Macular hole of left eye Major depression, single episode MEDICATION USE AGREEMENT 03/19/2012 Tylenol with codeine--Re[facility] Meningioma, cerebral ([facility]) 07/16/2022 small frontal cortex meningioma without mass effect Meningioma, cerebral ([facility]) 2022-08-02 Adding D32.0-Meningioma, cerebral ([facility]) Dx to History Migraines history of migraines--stopped 1998 Mixed incontinence urge and stress (male)(female) Moderate mitral regurgitation 03/01/[address] Ndiaye Other and unspecified noninfectious gastroenteritis and colitis(558.9) 06/24/2013 admitted [facility] Other forms of retinal detachment(361.89) Pneumonia due to COVID-19 virus 12/09/2020 [place], transferred to [facility] Postoperative anemia due to acute blood loss 03/11/2018 hgb 7, given 2 units PRBC hgb 9 on discharge Reflux esophagitis Scoliosis of lumbar spine Syncope and collapse 03/11/2018 hit head, admitted to [facility] Trochanteric bursitis of right hip 10/24/2020 Past Surgical History: Procedure Laterality Date ABDOMEN SURGERY PROCEDURE NEC liposuction CABG, ARTERIAL, TWO 02/[address] HEAD/BRAIN W/O CONTRAST MATERIAL 07/16/2022 chronic cerebellar infarct COLONOSCOPY, DIAGNOSTIC (RECTUM) 08/01/2016 normal bx/[facility] COLORECTAL CANCER SCREEN;W/FLE 08/2000 CT ABD/PELVIS W IV AND W ORAL CONTRAST N/A 10/05/2020 bilateral hip replacements, DJD of back, otherwise unremarkable. CTA HEAD W CONTRAST 07/14/2022 normal CTA NECK W CONTRAST 07/16/2022 no acute findings EGD, FLEXIBLE, DIAGNOSTIC 07/02/2014 esophagitis chronic gastritis with ulcers/inpt [facility] EGD, FLEXIBLE, DIAGNOSTIC 11/11/2014 reflux esophagitis/[facility] EGD, FLEXIBLE, DIAGNOSTIC 08/01/2016 gastritis, normal bx/[facility] INFORMATION repair retinal tear LASERING OF SECONDARY [...] Tonsillectomy/Adenoids,<12 Y/O STRESS TREADMILL 10/2006 Cardiovascular Stress Test-OK, Dr. Adams TOTAL ABD HYSTERECTOMY W/WO REMOVAL OF TUBE(S) [...] Not on file Social History Narrative Zoya Howard Sambryan Social Determinants of Health Financial Resource Strain: Not on file Food Insecurity: Not on file Transportation Needs: Not on file Physical Activity: Not on file Stress: Not on file Social Connections: Not on file Intimate Partner Violence: Not on file Housing Stability: Not on file Current Outpatient Medications Medication Sig Dispense Refill Acetaminophen 500 MG Oral Tablet (Tylenol) Take 1 Tab by mouth 3 times a day. 100 Tab 0 DIURETIC TITRATION PLAN If no improvement on day 3, contact heart failure managing provider. 1 Each0 Levothyroxine Sodium 100 MCG Oral Tablet (Levoxyl) TAKE ONE TABLET BY MOUTH EVERY DAY 90 Tablet 1 Metoprolol Succinate ER 25 MG Oral Tablet Extended Release 24 Hour (toPROL XL) TAKE ONE TABLET BY MOUTH EVERY DAY 90 Tablet 1 Rosuvastatin Calcium 40 MG Oral Tablet (Crestor) TAKE ONE TABLET BY MOUTH AT BEDTIME 90 Tablet 1 Pantoprazole Sodium 40 MG Oral Tablet Delayed Release (Protonix) TAKE ONE TABLET BY MOUTH TWICE DAILY 180 Tablet 1 Loperamide HCl 2 MG Oral Tablet (Imodium A-D) One tablet four times a day as needed 60 Tablet 1 Zolpidem Tartrate 5 MG Oral Tablet (Ambien) Take 1 Tablet by mouth at bedtime as needed for Sleep. Diphenoxylate-Atropine 2.5-0.025 MG Oral Tablet Take by mouth every 4 hours as needed for Diarrhea.Patient taking 1-2 tabs every 4 hours for diarrhea. Ondansetron HCl 4 MG Oral Tablet (Zofran) TAKE ONE TABLET BY MOUTH EVERY 6 HOURS NEEDED FOR nausea 30 Tablet 0 Polyethylene Glycol 3350 17 GM/SCOOP Oral Powder (MiraLax) Take 17 g by mouth as needed for Constipation. Dissolve one heaping tablespoon in 8 ounces of water or juice. 225 g 3 amLODIPine Besylate 5 MG Oral Tablet (Norvasc) Take 1 Tablet by mouth in the morning. Gabapentin 300 MG Oral Capsule (Neurontin) TAKE ONE CAPSULE BY MOUTH TWICE DAILY 60 Capsule 5 Eliquis 5 MG Oral Tablet Take 1 Tablet by mouth in the morning and 1 Tablet before bedtime. busPIRone HCl 10 MG Oral Tablet (Buspar) TAKE ONE TABLET BY MOUTH TWICE DAILY 60 Tablet 5 No current facility-administered medications for this visit. Immunization History Administered Date(s) Administered COVID-19 mRNA, LNP-s, No Preserve, 2-Dose Series (Moderna) 03/14/2020, 04/04/2020 Pneumococcal Conjugate Vacc, 13 Valent (Prevnar) 08/26/2014 Pneumococcal Polysaccharide PPV23 (Pneumovax) 10/26/2005 Seasonal Influenza, PF, 6 mons & Above, IM , (Flulaval) 12/27/2017, 03/13/2019 Seasonal Influenza, Quadrivalent Hd (Fluzone Hd) 11/18/2020, 01/10/2022 Seasonal Influenza, Quadrivalent Hd, 65+ Yrs 12/06/2019 Seasonal Influenza, Quadrivalent, No Preserve, IM 11/19/2014, 11/03/2015, 10/27/2016 Seasonal Influenza, Split, IIV3, With Preserve, Inj 12/01/2005, 11/22/2012, 11/04/2013 Seasonal Influenza, Trivalent, Adjuvanted, 65+ yrs 12/06/2019 Zoster Vaccine Recombinant (Shingrix) 12/04/2019 Results for orders placed or performed in visit on 10/04/22 RENAL FUNCTION PANEL Result Value Ref Range BUN 35 (H) 6 - 20 mg/dL Creatinine 1.5 (H) 0.5 - 1.0 mg/dL Estimated Glomerular Filtration Rate 35 (L) >=60 mL/min Sodium 141 135 - 146 mmol/L Potassium 3.6 3.5 - 5.1 mmol/L Chloride 101 98 - 107 mmol/L CO2 26 22 - 32 mmol/L Anion Gap 14 7 - 15 mmol/L Glucose 104 70 - 120 mg/dL Calcium 10.7 (H) 8.4 - 10.2 mg/dL Albumin 4.4 3.8 - 5.0 g/dL Phosphorus 3.3 2.5 - 4.8 mg/dL CBC Results: Results for orders placed or performed in visit on 10/04/22 CBC Result Value Ref Range WBC 8.75 4.00 - 10.80 K/uL RBC 4.00 3.85 - 5.15 M/uL HGB 12.0 12.0 - 15.3 g/dL HCT 37.5 36.0 - 45.2 % MCV 93.8 81.5 - 97.5 fL MCH 30.0 27.0 - 34.0 pg MCHC 32.0 32.0 - 36.0 g/dL RDW 14.3 11.5 - 15.5 % PLT 187 140 - 400 K/uL MPV 10.4 6.6 - 11.1 fL Results for orders placed or performed in visit on 06/09/20 LIPID PANEL WITH DIRECT LDL IF TG IS HIGH Result Value Ref Range Triglycerides 49 <=174 mg/dL Cholesterol 143 <200 mg/dL HDL Cholesterol 60 >49 mg/dL Non-HDL Cholesterol 83 <=159 mg/dL LDL Cholesterol 73 <=129 mg/dL O ;Blood pressure 124/62, pulse 88, temperature 37.1 C (98.8 F), SpO2 98 %. General appearance:well developed, well nourished and in no acute distress. Heart is irregular with a 2/6 systolic murmur. Lungs clear. No edema A: Chronic atrial fibrillation (HCC) (Primary) DDD (degenerative disc disease), lumbar - Gabapentin 300 MG Oral Capsule (Neurontin); Take 1 Capsule by mouth in the morning and 1 Capsule at noon and 1 Capsule before bedtime. Other idiopathic scoliosis, lumbar region Acquired hypothyroidism DYSLIPIDEMIA, GOAL LDL BELOW 100 Primary hypertension Low back pain radiating to left leg Gastroesophageal reflux disease with esophagitis without hemorrhage Hypertensive heart and kidney disease with chronic diastolic congestive heart failure and stage 3b chronic kidney disease (HCC) Continue other meds as before. Follow Up: Return in about 6 months (around 04/12/2023) for Clinic Visit. | For: Clinic Visit documented in this encounter Plan of Treatment Upcoming Encounters Date Type Specialty Care Team Description 10/24/2022 Telemedicine [facility] Anna Claudio CRNP [address] [place] [id number] Ashley Castaneda, Community Health Maintenance Mechanic [address]Nd Shift [address] [place] [address] [place] [id number] 10/30/2022 Home Visit [facility] Lana Lieberman, RN [address] [place] [address] 01/29/2023 Office Visit Family Medicine Con Coughlin MD [address] [place] [address] [place] [address] 04/13/2023 Office Visit Family Medicine Marla Tan MD [address] [place] [address] [place] [address] 04/25/2023 Office Visit Nephrology Tirso Shah MD [address] [place] [address] Health Maintenance Due Date Last Done Comments [...] Additional history exists CKD HGB USE SMARTSET 74514 10/05/202310/04, 10/04/2022, 07/06/2022, Additional history exists CKD PHOS USE SMARTSET 26865 10/05/202309/19, 06/08/2021, 09/07/2020, Additional history exists Pneumococcal [...] Chronic atrial fibrillation (HCC)- Primary Atrial fibrillation DDD (degenerative disc disease), lumbar Degeneration of lumbar or lumbosacral intervertebral disc Other idiopathic scoliosis, lumbar region Acquired hypothyroidism Unspecified hypothyroidism DYSLIPIDEMIA, GOAL LDL BELOW 100 Other and unspecified hyperlipidemia Primary hypertension Unspecified essential hypertension Low back pain radiating to left leg Lumbago Gastroesophageal reflux disease with esophagitis without hemorrhage Hypertensive heart and kidney disease with chronic diastolic congestive heart failure and stage 3b chronic kidney disease (HCC) documented in this encounter Care Teams Towerman Relationship Specialty Start Date End Date Con Coughlin MD [address] [place] [address] [place] [address] PCP - General Family Medicine 06/30/14 documented as of this encounter
--- OUTSIDE RECORDS SUMMARY | 2023-01-29 20:12 | External Medical Summary | Summary of Care ---
Author Name Unknown Organization [facility] Address [address] [place] [address] Phone [phone] Care Team Providers Care Bending Machine Operator Name Role Phone Con Coughlin MD Primary Care Provider Reason for Visit * Reason Onset Date Comments [facility]: Maintenance 10/03/2022 Encounter Details Date Type Department Care Team Description 10/03/2022 Telephone [facility], [facility] [address] [place], [place] [id number] [facility], Nurse [facility] [address] [place] [address] [facility]: Maintenance Allergies Active Allergy Reactions Severity Noted Date Comments Ergotamine 03/01/2000 vomit Nitroglycerin 03/14/2007 vomitting documented as of this encounter (statuses as of 10/03/2022) Medications Medication Sig Dispensed Refills Start Date [...] to hip. 100 g 3 06/06/2021 Active Torsemide 20 MG Oral Tablet (Demadex)Indication s:Chronic right-sided congestive heart failure (HCC) Take as directed with diuretic titration plan 30 Tablet 0 09/15/2021 Active DIURETIC TITRATION PLAN If no improvement on day 3, contact heart failure managing provider. 1 Each 0 09/15/2021 Active Levothyroxine Sodium 100 MCG Oral Tablet (Levoxyl) TAKE ONE TABLET BY MOUTH EVERY DAY 90 Tablet 1 05/31/2022 Active Metoprolol Succinate ER 25 MG Oral Tablet Extended Release 24 Hour (toPROL XL)Indications:Esse ntial hypertension with goal blood pressure less than 140/90,Atherosclero sis of [place] coronary artery of [place] heart without angina pectoris,Primary hypertension TAKE ONE [...] as needed 60 Tablet 1 06/21/2022 Active Torsemide 20 MG Oral Tablet (Demadex) Take 1 Tablet by mouth in the morning. 30 Tablet 5 06/29/2022 Active Zolpidem Tartrate 5 MG Oral Tablet (Ambien) Take 1 Tablet by mouth at bedtime as needed for Sleep. 0 Active Diphenoxylate-Atrop ine 2.5-0.025 MG Oral Tablet (Lomotil) Take by mouth every 4 hours as [...] as of this encounter (statuses as of 10/03/2022) Active Problems Problem Noted Date Current moderate episode of major depressive disorder without prior episode 04/07/2022 Food insecurity 08/01/2021 Overview: Per [facility] Protocol Hypertensive heart and kidne y [...] discuss her pain concerns. She is aware [facility] does not manage chronic pain meds. With her history of confusion, would recommend against use of narcotic medication. Mild aortic stenosis 07/27/2021 Last Assessment & Plan: Following with cardiology Aortocoronary bypass status 03/09/2021 Chronic atrial fibrillation 03/01/2021 Overview: new onset, [facility] on apixaban Last Assessment & Plan: Rate [...] as of this encounter (statuses as of 10/03/2022) Resolved Problems Problem Noted Date Resolved Date [...] 06/26/2017 Overview: hgb 7.4 admitted [facility] CKD (chronic kidney disease) stage 3, GFR [...] as of this encounter (statuses as of 10/03/2022) Immunizations Name Administration Dates Next Due COVID-19 mRNA, LNP-s, No Pre serve, 2-Dose Series (Moderna) 04/04/2020,03/14/2020 Pneumococcal Conjugate Vacc, 13 Valent (Prevnar) 08/26/2014 Pneumococcal Polysaccharide PPV23 (Pneumovax) 10/26/2005 Seasonal Influenza, Quadriva lent Hd (Fluzone Hd) 01/10/2022,11/18/2020 Seasonal Influenza, Quadriva lent Hd, 65+ Yrs 12/06/2019 Seasonal Influenza, Quadriva lent, No Preserve, 6 Mons & Above, IM 03/13/2019,12/27/2017 Seasonal Influenza, Quadriva lent, No Preserve, IM [...] Telephone Encounter - Shelby Arroyo LPN - 10/03/2022 3:05 PM EDT Call to patient with DTP recommendations Follow up calls placed. Left message to return call * Addendum Note - Ld Rashid PA-C - 10/03/2022 2:45 PM EDTAddended by: LD RASHID on: 10/03/2022 02:45 PM Modules accepted: Orders * Telephone Encounter - Ld Rashid PA-C - 10/03/2022 2:39 PM EDT [facility] Command Phone Encounter Thank you for your assistance in the care of this patient today. Patient had a 5 lb weight gain overnight in addition this is 5 lb over her baseline weight. She is currently asymptomatic however given the amount of weight change and the fact that is 5 lb over her baseline weight, I am recommending patient started DTP. With a BMP completed a day after the DTP karan schmitt. Latest Reference Range & Units 07/06/22 13:39 07/27/22 11:42 BUN 6 - 20 mg/dL 42 (H) 39 (H) Creatinine 0.5 - 1.0 mg/dL 1.7 (H) 2.2 (H) Estimated Glomerular Filtration Rate >=60 mL/min 29 (L) 22 (L) This note was prepared with the help of fluency and if there is any mis-spelled words , sentences or something which doesn't represent the content of the subject that could be technical error and please refer to the author for clarification. * Telephone Encounter - Shelby Arroyo LPN - 10/03/2022 1:05 PM EDT Images from the original note were not included. [facility] ([facility]) Weight Trigger [facility]C Data: Baseline Weight: 155lb Trigger Weight: 160.6lbs; weight increased 5.3 lbs in 1 days. She was up and had toast and tea at 3am denies any issues of SOB, edema, chest pain, headaches, dizziness or palpitations Last BM today Educated on 2gm sodium 64 oz fluid restriction Symptom review: Increased or worsening SOB from baseline: No Increased or worsening cough from baseline: No Orthopnea: No Increased or worsening edema in BLE/abdominal fullness: No Reviewed current diuretic use: Name of Medication: Torsemide she takes 10mg every 2 days or so she states took today Dose: 20mg daily Frequency: daily Patient has a DTP (Diuretic Titration Protocol (DTP) ordered: Yes: DTP Name of Medications: torsemide DTP Dose: double dose DTP Frequency: 3 days Recent use within the past 2 weeks: No Diet review: Patient has had any foods high in sodium: No Fluid review: Fluid restriction: Yes, adherent to restriction: Yes Plan/Treatment: Route to RMC (Remote Medical Coordinator) Education Review: Reviewed HF symptom monitoring: -Weigh self daily in am, post-void and record -Do not add salt to food, avoid foods high in sodium -Limit fluids to 2 liters per day -Report the following: ->2 lb weight gain in one day or 5 lbs in a week to PCP -increased edema in feet, abdomen or hands -increased SOB and cough, especially if at night -increased fatigue or vertigo Call back instructions discussed with patient. documented in this encounter Plan of Treatment Upcoming Encounters Date Type Specialty Care Team Description 10/04/2022 Office Visit Nephrology Tirso Shah MD [address] [place] [address] 10/04/2022 Scheduled Telephone [facility] [employer], [facility] [address] [place] [address] 10/05/2022 Scheduled Telephone [facility] [employer], [facility] [address] [place] [address] 10/10/2022 Office Visit Family Con Borges MD [address] [place] [address] [place] [address] 10/19/2022 Home Visit [facility] Lana Lieberman RN [address] [place] [address] 10/24/2022 Telemedicine [facility] Anna Claudio CRNP [address] [place] [address] Ashley Castaneda Community Health Tumbling Barrel Painter [address] [place] [address] [place] [address] 01/29/2023 Office Visit Family Con Borges MD [address] [place] [address] [place] [address] Scheduled Orders Name Type Priority Associated Diagnoses Orde r Schedule BASIC METABOLIC PANEL Lab Routine Hypertensive heart and kidney disease with chronic diastolic congestive heart failure and stage 3b chronic kidney disease (HCC) Expected: 10/06/2022 (Approximate), Expires: 10/03/2023 Health Maintenance Due Date Last Done Comments DTaP,Tdap,and Td Vaccines (1 - Tdap) 11/15/1957 COVID-19 Vaccine (5 - Mixed Product series) 06/14/2020 04/19/2020, 04/04/2020, 03/22/2020, Additional history exists Depression Screening, Annual for Pts 12 and Over 09/29/2020 09/30/2019 CKD PHOS USE SMARTSET 96170 06/08/202205/21, 09/07/2020, 08/17/2020, Additional history exists Influenza Vaccine (FLU shot) (#1) 2022 01/10/2022, 11/18/2020, 12/06/2019, Additional history exists CKD HGB USE SMARTSET 02433 07/07/202307/06, 07/06/2022, 06/08/2021, Additional history exists Albumin/Creatinine Ratio 07/28/2023 023, 06/09/2020, 03/13/2019, Additional history exists TSH 07/28/2023 07/27/2022, 05/21, 06/09/2020, Additional history exists Pneumococcal Vaccine: 65+ Years [...] Primary documented in this encounter Care Teams Bending Machine Operator Relationship Specialty Start Date End Date Con Coughlin MD [address] [place] [address] [place] [address] PCP - General Family Medicine 06/30/14 documented as of this encounter
--- OUTSIDE RECORDS SUMMARY | 2023-01-29 20:12 | External Medical Summary | Summary of Care ---
Author Name Unknown Organization [facility] Address [address] [place] [address] Phone [phone] Care Team Providers Care Field Nurse Name Role Phone Con Coughlin MD Primary Care Provider Reason for Visit * Reason Onset Date Comments [facility]: Maintenance 10/03/2022 Encounter Details Date Type Department Care Team Description 10/03/2022 Telephone [facility], [facility] [address] [place], [place] [phone] [facility], Nurse [facility] [address] [place] [address] [facility]: Maintenance Allergies Active Allergy [...] blood pressure less than 140/90,Atherosclero sis of [place] coronary artery of [place] heart without angina pectoris,Primary hypertension TAKE ONE [...] episode 04/07/2022 Food insecurity 08/01/2021 Overview: Per [facility] Protocol Hypertensive heart and kidne y [...] discuss her pain concerns. She is aware [facility] does not manage chronic pain meds. With her history of confusion, would recommend against use of narcotic medication. 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 [facility] ([facility]) Weight Trigger [facility] Data: Baseline Weight: 155lb Trigger Weight: 160.6lbs; [...] 10/04/2022 Office Visit Nephrology Tirso Shah MD [address] [place] [address] [place] [address] 10/10/2022 Office Visit Family Medicine Con Coughlin MD [address] [place] [address] [place] [address] 10/19/2022 Home Visit [facility] Lana Lieberman, KHARI [address] [place] [address] 10/24/2022 Telemedicine [facility] Anna Claudio CRNP [address] [place] [address] Ashley Castaneda Community Health Redevelopment Manager [address] [place] [address] [place] [address] 01/29/2023 Office Visit Family Medicine Con Coughlin MD [address] [place] [address] [place] [address] Scheduled Orders Name Type Priority Associated Diagnoses [...] Over 09/29/2020 09/30/2019 CKD PHOS USE SMARTSET 66310 06/08/202205/21, 09/07/2020, 08/17/2020, Additional history exists Influenza Vaccine (FLU shot) (#1) 2022 01/10/2022, 11/18/2020, 12/06/2019, Additional history exists CKD HGB USE SMARTSET 14222 07/07/202307/06, 07/06/2022, 06/08/2021, Additional history exists Albumin/Creatinine [...] Primary documented in this encounter Care Teams Field Nurse Relationship Specialty Start Date End Date Con Coughlin MD [address] [place] [address] [place] [address] PCP - General Family Medicine 06/30/14 documented as of this encounter
--- OUTSIDE RECORDS SUMMARY | 2023-01-29 20:12 | External Medical Summary | Summary of Care ---
Author Name Unknown Organization [facility] Address [address] [place] [facility] [place] [address] Phone [phone] Care Team Providers Care Deputy Clerk Name Role Phone Con Coughlin MD Primary Care Provider [phone] Reason for Visit * Reason Onset Date Comments [facility]: Maintenance 10/05/2022 Encounter Details Date Type Department Care Team Description 10/05/2022 Scheduled Telephone [facility], [facility] [address] [facility] [place] [address] Coordinator, [facility] [address] [facility] [place] [address] Allergies Active Allergy Reactions Severity Noted Date Comments Ergotamine 03/01/2000 vomit Nitroglycerin 03/14/2007 vomitting documented as of this encounter (statuses as of 10/05/2022) Medications Medication Sig Dispensed Refills Start Date [...] blood pressure less than 140/90,Atherosclero sis of [place] coronary artery of [place] heart without angina pectoris,Primary hypertension TAKE ONE [...] as of this encounter (statuses as of 10/05/2022) Active Problems Problem Noted Date Current moderate episode of major depressive disorder without prior episode 04/07/2022 Food insecurity 08/01/2021 Overview: Per [facility] Protocol Hypertensive heart and kidne [...] pain concerns. She is aware [facility] does not manage chronic pain meds. With [...] as of this encounter (statuses as of 10/05/2022) Resolved Problems Problem Noted Date Resolved Date [...] as of this encounter (statuses as of 10/05/2022) Immunizations Name Administration Dates Next Due COVID-19 [...] encounter Miscellaneous Notes * Telephone Encounter - Darling Roe RN - 10/05/2022 11:47 AM EDT Images from the original note were not included. [facility] Telephonic Nurse Follow-Up Call [facility] Subprogram: Short-Term Management (less than 3 months) Follow Up Call Type: 48 hour follow up Acute issue requiring follow-up call: Heart Failure Exacerbation Objective: 10/04/2022 11:02 AM 09/21/2022 2:18 PM 09/04/2022 3:42 PM 09/02/2022 5:56 PM 08/09/2022 12:46 PM [facility] ACROSS ENCOUNTERS BP 160/85 142/82 110/60 118/60 106/62 Pulse 85 82 76 76 74 Weight 72.6 kg 72.1 kg 72.6 kg BMI 30.23 kg/m2 30.04 kg/m2 30.23 kg/m2 Lab Results Component Value Date WBC AUTO - [facility] 8.75 10/04/2022 Lab Results Component Value Date WBC AUTO - [facility] 8.75 10/04/2022 HGB - [facility] 12.0 10/04/2022 PLATELET AUTO - [facility] 187 10/04/2022 Lab Results Component Value Date SODIUM - [facility] 141 10/04/2022 POTASSIUM - [facility] 3.6 10/04/2022 MAGNESIUM - [facility] 2.1 10/04/2022 CO2 - [facility] 26 10/04/2022 CREATININE - [facility] 1.5 (H) 10/04/2022 ESTIMATED GLOMERULAR FILTRATION RATE - [facility] 35 (L) 10/04/2022 ALBUMIN - [facility] 4.4 10/04/2022 No results found for: PRO BNP, LEFT VENTRICULAR EJECTION FRACTION Remote Patient Monitoring: [facility] Scale: weight loss today 1.8 lbs Oxygen Needs: NO supplemental oxygen needs identified DME Needs: NO DME needs identified Medications: Current DTP: Other: double dose of Torsemide x3 days - Torsemide dc yesterday by nephrology Subjective: Condition Status: Symptoms resolved and back to baseline Pt reports that she is feeling great and has no s/s of fluid retention. Denies SOB, chest pain, edema, abd bloating, headaches, dizziness, changes in sleep habits or bowel/bladder changes. Pt seen yesterday by nephrology and Torsemide dc due to affect it was having on her kidneys. Pt instructed to use dietary restrictions to manage fluid balance. Reviewed HF symptom monitoring: -Weigh self daily [...] if at night -increased fatigue or vertigo Disposition: Issue resolved. All appropriate follow up scheduled. Future Visits Scheduled: Future Appointments-next 60 days Date/Time Provider Specialty Dept Phone 10/10/2022 4:20 PM (Arrive by 4:05 PM) Con Coughlin MD Family Medicine [phone] 10/19/2022 4:00 PM Lana Lieberman RN [facility] [phone] 10/24/2022 4:30 PM Ashley Castaneda Community Health Web Marketing Analyst; EMIR Hewitt [facility] [phone] 01/29/2023 12:00 PM (Arrive by 11:45 AM) Con Coughlin MD Family Medicine [phone] 04/25/2023 2:40 PM (Arrive by 2:25 PM) Tirso Shah MD Nephrology [phone] Darling Roe, RN documented in this encounter Plan of Treatment Upcoming Encounters Date Type Specialty Care Team Description 10/10/2022 Office Visit Family Medicine oCn Coughlin MD [address] [place] [address] [place] [address] 10/19/2022 Home Visit [facility] Lana Lieberman, RN [address] [place] [address] 10/24/2022 Telemedicine [facility] Anna Claudio CRNP [address] [place] [address] Ashley Castaneda Community Health Web Marketing Analyst [address] [place] [address] [place] [address] 01/29/2023 Office Visit Family Medicine Con Coughlin MD [address] [place] [address] [place] [phone] 04/25/2023 Office Visit Nephrology Tirso Shah MD [address] [place] [address] Health Maintenance Due Date Last Done Comments [...] Additional history exists CKD HGB USE SMARTSET 84211 10/05/202310/04, 10/04/2022, 07/06/2022, Additional history exists CKD PHOS USE SMARTSET 94159 10/05/202309/19, 06/08/2021, 09/07/2020, Additional history exists Pneumococcal [...] filedocumented as of this encounter Care Teams Deputy Clerk Relationship Specialty Start Date End Date Con Coughlin MD [address] [place] [address] [place] [address] PCP - General Family Medicine 06/30/14 documented as of this encounter
--- OUTSIDE RECORDS SUMMARY | 2023-01-29 20:12 | External Medical Summary | Summary of Care ---
Author Name Unknown Organization [facility] Address [address] [place] [address] Phone [phone] Care Team Providers Care Environmental Health Specialist Name Role Phone Con Coughlin MD Primary Care Provider Reason for Visit * Reason Onset Date Comments Home Health 09/22/2022 Encounter Details Date Type Department Care Team Description 09/22/2022 Telephone Family Medicine [address] [phone] Con Coughlin MD [address] [place] [address] [place] [phone] Home Health (/) Allergies Active Allergy Reactions Severity Noted Date Comments Ergotamine 03/01/2000 vomit Nitroglycerin 03/14/2007 vomitting documented as of this encounter (statuses as of 09/22/2022) Medications Medication Sig Dispensed Refills Start Date [...] managing provider. 1 Each 0 09/15/2021 Active busPIRone HCl 10 MG Oral Tablet (Buspar)Indications :Anxiety state TAKE ONE TABLET BY MOUTH TWICE DAILY 60 Tablet 5 04/05/2022 Active Levothyroxine Sodium 100 MCG Oral Tablet (Levoxyl) TAKE ONE TABLET BY MOUTH EVERY DAY 90 Tablet 1 05/31/2022 Active Metoprolol Succinate ER 25 MG Oral Tablet Extended Release 24 Hour (toPROL XL)Indications:Esse ntial hypertension with goal blood pressure less than 140/90,Atherosclero sis of [place] coronary artery of [place] heart without angina pectoris,Primary hypertension TAKE ONE [...] 1 Tablet before bedtime. 0 08/25/2022 Active documented as of this encounter (statuses as of 09/22/2022) Active Problems Problem Noted Date Current moderate episode of major depressive disorder without prior episode 04/07/2022 Food insecurity 08/01/2021 Overview: Per [facility] Protocol Hypertensive heart and kidne [...] discuss her pain concerns. She is aware [facility] does not manage chronic pain meds. With her history of confusion, would recommend against use of narcotic medication. Mild aortic stenosis 07/27/2021 Last Assessment & Plan: Following with cardiology Aortocoronary bypass status 03/09/2021 Chronic atrial fibrillation 03/01/2021 Overview: new onset, [facility] on apixaban Last Assessment & Plan: Rate [...] as of this encounter (statuses as of 09/22/2022) Resolved Problems Problem Noted Date Resolved Date [...] 06/30/2014 06/26/2017 Overview: hgb 7.4 admitted [facility] CKD (chronic kidney disease) stage 3, GFR [...] as of this encounter (statuses as of 09/22/2022) Immunizations Name Administration Dates Next Due COVID-19 [...] Telephone Encounter - Sydnie Manuel LPN - 09/22/2022 9:00 AM EDT Provider to address: Con Coughlin MD Reason for Call: Home Health (/) Contact: Telephone Call Contact Type: Information Outcome: Ying calling from [facility] She wanted to verify patients Eliquis order. Eliquis 5mg-Route: Take 1 Tablet by mouth in the morning and 1 Tablet before bedtime. No further questions at this time Total Time including non face to face (minutes): 5 documented in this encounter Plan of Treatment Upcoming Encounters Date Type Specialty Care Team Description 10/04/2022 Office Visit Nephrology Tirso Shah MD [address] [place] [address] 10/19/2022 Home Visit [facility] Lana Lieberman RN [address] [facility] [place] [address] 10/24/2022 Telemedicine [facility] Anna Claudio CRNP [address] [place] [address] Ashley Castaneda, Community Health [address] [place] [phone] 01/29/2023 Office Visit Family Medicine Con Coughlin MD [address] [place] [address] [place] [address] Health Maintenance Due Date Last Done Comments DTaP,Tdap,and Td Vaccines (1 - Tdap) 11/15/1957 COVID-19 Vaccine (5 - Mixed Product series) 06/14/2020 04/19/2020, 04/04/2020, 03/22/2020, Additional history exists Depression Screening, Annual for Pts 12 and Over 09/29/2020 09/30/2019 CKD PHOS USE SMARTSET 60507 06/08/202205/21, 09/07/2020, 08/17/2020, Additional history exists Influenza Vaccine (FLU shot) (#1) 2022 01/10/2022, 11/18/2020, 12/06/2019, Additional history exists CKD HGB USE SMARTSET 48914 07/07/202307/06, 07/06/2022, 06/08/2021, Additional history exists Albumin/Creatinine [...] filedocumented as of this encounter Care Teams Environmental Health Specialist Relationship Specialty Start Date End Date Con Coughlin MD [address] [place] [address] [place] [address] PCP - General Family Medicine 06/30/14 documented as of this encounter
--- OUTSIDE RECORDS SUMMARY | 2023-01-29 20:12 | External Medical Summary | Summary of Care ---
Author Name Unknown Organization [facility] Address [address] [place] [address] Phone [phone] Care Team Providers Care Visual Manager Name Role Phone Con Coughlin MD Primary Care Provider Reason for Visit * Reason Onset Date Comments [facility]: Maintenance 10/03/2022 Encounter Details Date Type Department Care Team Description 10/03/2022 Telephone [facility], [facility] [address] [place], [place] [phone] [facility], Nurse [facility] [address] [place] [address] [facility]: Maintenance Allergies Active Allergy [...] blood pressure less than 140/90,Atherosclero sis of [place] coronary artery of [place] heart without angina pectoris,Primary hypertension TAKE ONE [...] episode 04/07/2022 Food insecurity 08/01/2021 Overview: Per [facility] Protocol Hypertensive heart and kidne y [...] discuss her pain concerns. She is aware [facility] does not manage chronic pain meds. With her history of confusion, would recommend against use of narcotic medication. Mild aortic stenosis 07/27/2021 Last Assessment & Plan: Following with cardiology Aortocoronary bypass status 03/09/2021 Chronic atrial fibrillation 03/01/2021 Overview: new onset, [facility] on apixaban Last Assessment 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[place] co ronary artery of [place] heart without angina pectoris Last Assessment & [...] ulcer 06/30/2014 06/26/2017 Overview: hgb 7.4 admitted [facility] CKD (chronic kidney disease) [...] Miscellaneous Notes * Telephone Encounter - Shelby Cesario Arroyo, JBOSS ARCHITECT - 10/03/2022 1:05 PM EDT Images from the original note were not included. [facility] ([facility]) [place]igger [facility] [place]: Baseline Weight: 155lb [...] Visit Nephrology Tirso Shah MD [address] [facility] [place] [address] 10/10/2022 Office Visit Family Medicine Con Coughlin MD [address] [place] [address] [place] [address] 10/19/2022 Home Visit [facility] Lana Lieberman RN [address] [place] [address] 10/24/2022 Telemedicine [facility] Anna Claudio CRNP [address] [place] [address] Ashley Castaneda Community Health Field Underwriter [address] [place] [address] [place] [address] 01/29/2023 Office Visit Family Con Borges MD [address] [place] [address] [place] [address] Health Maintenance Due Date Last Done Comments DTaP,Tdap,and Td Vaccines (1 - Tdap) 11/15/1957 COVID-19 Vaccine (5 - Mixed Product series) 06/14/2020 04/19/2020, 04/04/2020, 03/22/2020, Additional history exists Depression Screening, Annual for Pts 12 and Over 09/29/2020 09/30/2019 CKD PHOS USE SMARTSET 52222 06/08/2022 04/2 , 09/07/2020, 08/17/2020, Additional history exists Influenza Vaccine (FLU shot) (#1) 2022 01/10/2022, 11/18/2020, 12/06/2019, Additional history exists CKD HGB USE SMARTSET 21165 07/07/202307/06, 07/06/2022, 06/08/2021, Additional history exists Albumin/Creatinine [...] filedocumented as of this encounter Care Teams Visual Manager Relationship Specialty Start Date End Date Con Coughlin MD [address] [place] [address] [place] [address] PCP - General Family Medicine 06/30/14 documented as of this encounter
--- OUTSIDE RECORDS SUMMARY | 2023-01-29 20:12 | External Medical Summary | Summary of Care ---
Author Name Unknown Organization [facility] Address [address] [place] [address] Phone [phone] Care Team Providers Care Digital Media Intern Name Role Phone Con Coughlin MD Primary Care Provider Reason for Visit * Reason Comments [facility]: Maintenance Encounter Details Date Type Department Care Team Description 09/21/2022 Home Visit [facility], [facility] [address] [place] [address] Lana Lieberman RN [address] [place] [address] Allergies Active Allergy Reactions Severity Noted Date [...] blood pressure less than 140/90,Atherosclero sis of [place] coronary artery of [place] heart without angina pectoris,Primary hypertension TAKE ONE [...] episode 04/07/2022 Food insecurity 08/01/2021 Overview: Per [facility] Protocol Hypertensive heart and kidne [...] discuss her pain concerns. She is aware [facility] does not manage chronic pain meds. With her history of confusion, would recommend against use of narcotic medication. Mild aortic stenosis 07/27/2021 Last Assessment & Plan: Following with cardiology Aortocoronary bypass status 03/09/2021 Chronic atrial fibrillation 03/01/2021 Overview: new onset, 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 CKD (chronic kidney disease) stage 3, [...] Sign Reading Time Taken Comments Blood Pressure 142/82 09/21/2022 2:18 PM EDT Pulse 82 09/21/2022 2:18 PM EDT Temperature 36.1 C (97 F) 09/21/2022 2:18 PM EDT Respiratory Rate 18 09/21/2022 2:18 PM EDT Oxygen Saturation 97% 09/21/2022 2:18 PM EDT Inhaled Oxygen Concentration - - Weight - - Height - - Body Mass Index - - documented in this encounter Progress Notes * Lana Lieberman RN - 09/21/2022 1:56 PM EDT [facility] Ornamental Ironworker Helper Visit Date: 09/21/2022 Time: 1:56 PM Name: Zoya Howard : 1938 Current Concerns: Patient seen for follow up- CHF, Afib, CKD Recently had DTP 09/04-09/07 Reports it was effective. States she is doing well- back to her baseline. [facility] scale set up in bathroom- weights transmitting VS wnl Lungs clear bilaterally Sob with exertion Mild ankle edema- wearing strap sandals Voiding without difficulty Bowels wnl- per report Appetite good Taking fluids well Problems/Symptoms: Review of Systems Constitutional: Negative. HENT: Negative. Eyes: Negative. Respiratory: Positive for shortness of breath. Cardiovascular: Positive for leg swelling. Gastrointestinal: Negative. Genitourinary: Negative. Musculoskeletal: Negative. Skin: Negative. Allergic/Immunologic: Negative. Neurological: Negative. Physical Exam: BP 142/82 (BP Site: Left Arm, BP Position: Sitting, BP Cuff Size: Regular) | Pulse 82 | Temp 36.1 C (97 F) (Tympanic) | Resp 18 | SpO2 97% Pain 0 Physical Exam Constitutional: Appearance: Normal appearance. Cardiovascular: Rate and Rhythm: Normal rate. Rhythm irregular. Pulses: Normal pulses. Heart sounds: Normal heart sounds. Pulmonary: Effort: Pulmonary effort is normal. Musculoskeletal: Right lower leg: Edema present. Left lower leg: Edema present. Skin: General: Skin is warm and dry. Capillary Refill: Capillary refill takes 2 to 3 seconds. Neurological: General: No focal deficit present. Mental Status: She is alert and oriented to person, place, and time. [facility]-10 Completed this Visit: No. Routine visit Treatment/Plan: Low na diet Elevate ble prn edema Continue medications as prescribed Keep all upcoming MD appointments Fall precautions Fluids encouraged RN CM follow up in 4 weeks Home Interventions Provided: Reinforced current Plan of Care, including self-management and medication regimen Patient Needs to Remember: Call [place] with any medical concerns/ red flags Referrals Needed: n/a Follow Up: Is there cellular connectivity/connectivity in the home? Yes Does the patient have internet in the home? No Patient encouraged to call the intake phone number for all urgent but not emergent issues. Scheduled to follow up with patient in 4 weeks. Lana Schuler RN 09/21/2022 1:56 PM documented in this encounter Plan of Treatment Upcoming Encounters Date Type Specialty Care Team Description 10/04/2022 Office Visit Nephrology Tirso Shah MD [address] [place] [address] 10/19/2022 Home Visit [facility] Lana Lieberman, KHARI [address] [facility] [place] [address] 10/24/2022 Telemedicine [facility] Anna Claudio CRNP [address] [place] [address] Ashley Castaneda, [address] [place] [address] 01/29/2023 Office Visit Family Medicine Con Coughlin MD [address] [place] [address] [place] [address] Health Maintenance Due Date Last Done Comments DTaP,Tdap,and Td Vaccines (1 - Tdap) 11/15/1957 COVID-19 Vaccine (5 - Mixed Product series) 06/14/2020 04/19/2020, 04/04/2020, 03/22/2020, Additional history exists Depression Screening, Annual for Pts 12 and Over 09/29/2020 09/30/2019 CKD PHOS USE SMARTSET 99913 06/08/202205/21, 09/07/2020, 08/17/2020, Additional history exists Influenza Vaccine (FLU shot) (#1) 2022 01/10/2022, 11/18/2020, 12/06/2019, Additional history exists CKD HGB USE SMARTSET 55517 07/07/202307/06, 07/06/2022, 06/08/2021, Additional history exists Albumin/Creatinine [...] filedocumented as of this encounter Care Teams Digital Media Intern Relationship Specialty Start Date End Date Con Coughlin MD [address] [place] [address] [place] [address] PCP - General Family Medicine 06/30/14 documented as of this encounter
--- OUTSIDE RECORDS SUMMARY | 2023-01-29 20:12 | External Medical Summary | Summary of Care ---
Author Name Unknown Organization [facility] Address [address] [place] [address] Phone [phone] Care Team Providers Care Auction Clerk Name Role Phone Con Coughlin MD Primary Care Provider Reason for Visit * Reason Onset Date Comments [facility]: Maintenance 09/13/2022 Encounter Details Date Type Department Care Team Description 09/13/2022 Scheduled Telephone [facility] [address] [place] [address] Maia Yao RN [address] [place] [address] Allergies Active Allergy Reactions Severity Noted Date Comments Ergotamine 03/01/2000 vomit Nitroglycerin 03/14/2007 vomitting documented as of this encounter (statuses as of 09/15/2022) Medications Medication Sig Dispensed Refills Start Date [...] blood pressure less than 140/90,Atherosclero sis of [place] coronary artery of [place] heart without angina pectoris,Primary hypertension TAKE ONE [...] as of this encounter (statuses as of 09/15/2022) Active Problems Problem Noted Date Current moderate episode of major depressive disorder without prior episode 04/07/2022 Food insecurity 08/01/2021 Overview: Per [facility] Protocol Hypertensive heart and kidne y [...] discuss her pain concerns. She is aware [facility] does not manage chronic pain [...] as of this encounter (statuses as of 09/15/2022) Resolved Problems Problem Noted Date Resolved Date [...] as of this encounter (statuses as of 09/15/2022) Immunizations Name Administration Dates Next Due COVID-19 [...] encounter Miscellaneous Notes * Telephone Encounter - Maia Yao RN - 09/15/2022 9:45 AM EDT Outreach to patient to see if she received her AMC scale. No answer. Unable to leave voicemail. Will schedule for follow up next week. documented in this encounter Plan of Treatment Upcoming Encounters Date Type Specialty Care Team Description 10/04/2022 Office Visit Nephrology Tirso Shah MD [address] [facility] [place] [address] 10/24/2022 Telemedicine [facility] Anna Claudio CRNP [address] [facility] [place] [address] Ashley Castaneda [facility] [employer] [address] [employer] [address] [place] [address] [place] [phone] 01/29/2023 Office Visit Family Medicine Con Coughlin MD [address] [place] [address] [place] [address] Health Maintenance Due Date Last Done Comments DTaP,Tdap,and Td Vaccines (1 - Tdap) 11/15/1957 COVID-19 Vaccine (5 - Mixed Product series) 06/14/2020 04/19/2020, 04/04/2020, 03/22/2020, Additional history exists Depression Screening, Annual for Pts 12 and Over 09/29/2020 09/30/2019 CKD PHOS USE SMARTSET 72445 06/08/202205/21, 09/07/2020, 08/17/2020, Additional history exists Influenza Vaccine (FLU shot) (#1) 2022 01/10/2022, 11/18/2020, 12/06/2019, Additional history exists CKD HGB USE SMARTSET 64854 07/07/202307/06, 07/06/2022, 06/08/2021, Additional history exists Albumin/Creatinine [...] filedocumented as of this encounter Care Teams Auction Clerk Relationship Specialty Start Date End Date Con Coughlin MD [address] [place] [address] [place] [address] PCP - General Family Medicine 06/30/14 documented as of this encounter
--- OUTSIDE RECORDS SUMMARY | 2023-01-29 20:12 | External Medical Summary ---
Author Name Unknown Address Unknown Organization K09:[facility] [address] [place] [address] Laboratory Report Ordering Provider Test Date Status ELE GOMEZVARUN 10/04/2022 11:59:49 Final Observation Date Value Abnormality Reference (Units ) Status Magnesium 10/04/2022 11:59:49 2.1 1.5-2.6 (m g/dL) Final Performing Location [facility] [address] [place] [address]
--- OUTSIDE RECORDS SUMMARY | 2023-01-29 20:12 | External Medical Summary | Summary of Care ---
Author Name Unknown Organization [facility] Address [address] [place] [address] Phone [phone] Care Team Providers Care Senior Human Resources Representative Name Role Phone Con Coughlin MD Primary Care Provider [phone] Reason for Visit * Reason Comments Chronic Kidney Disease (CKD) * Evaluate & Treat - Unlimited Visits (Within 10 days (routine)) - Authorized Specialty Diagnoses / Procedures Referred By Contac t Referred To Contact Nephrology Diagnoses Hypertensive heart and kidney disease with chronic diastolic congestive heart failure and stage 3b chronic kidney disease (HCC) Con Coughlin MD [address] [place] [address] [place] [address] Referral ID Status Reason Start Date Expiration Date Visits Requested Visits Authorized [id number] Authorized Specialty Services Required 07/31/[phone] Encounter Details Date Type Department Care Team Description 10/04/2022 Office Visit Nephrology, Caroline Grahn [address] [facility] [place] [address] Tirso Shah MD [address] [place] [address] KIM (acute kidney injury) (HCC)*; Stage 3b chronic kidney disease (HCC) Allergies Active Allergy Reactions Severity Noted Date Comments Ergotamine 03/01/2000 vomit Nitroglycerin 03/14/2007 vomitting documented as of this encounter (statuses as of 10/04/2022) Medications Medication Sig Dispensed Refills Start Date [...] blood pressure less than 140/90,Atheroscler osis of jena coronary artery of jena heart without angina pectoris,Primary hypertension TAKE ONE [...] 0 Active Gabapentin 300 MG Oral Capsule (Neurontin)Indicat [...] TWICE DAILY 60 Tablet 5 09/22/2022 Active Torsemide 20 MG Oral Tablet (Demadex)Indicatio ns:Chronic right-sided congestive heart failure (HCC) Take as directed with diuretic titration plan 30 Tablet 0 09/15/2021 3 Discontinue d(Medicatio n List Clean Up) Torsemide 20 MG Oral Tablet (Demadex) Take 1 Tablet by mouth in the morning. 30 Tablet 5 06/29/2022 3 Discontinue d(Medicatio n List Clean Up) documented as of this encounter (statuses as of 10/04/2022) Active Problems Problem Noted Date Current moderate episode of major depressive disorder without prior episode 04/07/2022 Food insecurity 08/01/2021 Overview: Per [facility] Protocol Hypertensive heart and kidne y [...] discuss her pain concerns. She is aware [facility] does not manage chronic pain meds. With her history of confusion, would recommend against use of narcotic medication. Mild aortic stenosis 07/27/2021 Last Assessment & Plan: Following with cardiology Aortocoronary bypass status 03/09/2021 Chronic atrial fibrillation 03/01/2021 Overview: new onset, [facility] on apixaban Last Assessment & 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jena co ronary artery of jena heart without angina pectoris Last Assessment & Plan: Stable no angina -continue rosuvastatin, metopropolol, Anxiety state Last Assessment & Plan: Stable on buspar, Primary hypertension Gastroesophageal reflux disease with eso phagitis without hemorrhage Last Assessment & Plan: symptoms controlled on pantoprazole Scoliosis of lumbar spine Mixed incontinence urge and stress (male )(female) documented as of this encounter (statuses as of 10/04/2022) Resolved Problems Problem Noted Date Resolved Date [...] ulcer 06/30/2014 06/26/2017 Overview: hgb 7.4 admitted [facility] CKD (chronic kidney disease) stage [...] as of this encounter (statuses as of 10/04/2022) Immunizations Name Administration Dates Next Due COVID-19 [...] Sign Reading Time Taken Comments Blood Pressure 160/85 10/04/2022 11:02 AM EDT Pulse 85 10/04/2022 11:02 AM EDT Temperature 35.9 C (96.7 F) 10/04/2022 11:02 AM E DT Respiratory Rate 18 10/04/2022 11:02 AM EDT Oxygen Saturation 98% 10/04/2022 11:02 AM EDT Inhaled Oxygen Concentration - - Weight 72.6 kg (160 lb) 10/04/2022 11:02 AM EDT Height - - Body Mass Index 30.23 07/06/2022 1:08 PM EDT documented in this encounter Progress Notes * Tirso Shah MD - 10/04/2022 2:15 PM EDT Subjective: Zoya Howard is a 83 year old female. Chief Complaint Patient presents with Chronic Kidney Disease (CKD) HPI: 83-year-old female who is here for evaluation of abnormal kidney function. She had creatinine of 1.2 as baseline but after she got started on torsemide creatinine has been running higher and most recently in July 2022 was 2.2. However patient is really not taking the torsemide at this time because of extreme urinary frequency and urinary incontinence. She only took half a tablet of torsemide 3 days ago. She was started on torsemide after hospital admission in June 2022 She had many many issues during that hospitalization including nausea vomiting diarrhea from norovirus. She also received IV contrast for CT scans And she was discharged on torsemide NSAID looks like she was on nabumetone ( RX grade NSAID) but she does not think she is taking now. Renal Stone No Herbal Medication No Urinary Complaints Yes, she is very bothered by urinary incontinence and urinary frequency. Current Outpatient Medications Medication Sig Dispense Refill Acetaminophen 500 MG Oral Tablet (Tylenol) Take 1 Tab by mouth 3 times a day. 100 Tab 0 Levothyroxine Sodium 100 MCG Oral Tablet (Levoxyl) [...] 1-2 tabs every 4 hours for diarrhea. Polyethylene Glycol 3350 17 GM/SCOOP Oral Powder [...] BY MOUTH TWICE DAILY 60 Tablet 5 Diclofenac Sodium 1 % External Gel (Voltaren) Apply topically to affected area 4 g in the morning AND 4 g at noon AND 4 g in the evening AND 4 g before bedtime. Apply to hip. (Patient not taking: Reported on 10/04/2022) 100 g 3 Torsemide 20 MG Oral Tablet (Demadex) Take as directed with diuretic titration plan 30 Tablet 0 DIURETIC TITRATION PLAN If no improvement on day 3, contact heart failure managing provider. 1 Each0 Ondansetron HCl 4 MG Oral Tablet (Zofran) TAKE ONE TABLET BY MOUTH EVERY 6 HOURS NEEDED FOR nausea 30 Tablet 0 No current facility-administered medications for this visit. Past Medical History: Diagnosis Date Acute on chronic combined systolic and diastolic CHF (congestive heart failure) ([facility]) 03/28/2021 admitted [facility] Anxiety state Anxiety State Aortic valve stenosis, mild 03/01/2021 Aortocoronary bypass status Atherosclerosis of jena coronary artery of jena heart without angina pectoris Atrial fibrillation ([facility]) 12/09/2020 during admission [place] Benign hypertension with CKD (chronic kidney disease) stage III ([facility]) Cataract cortical, senile Chronic atrial fibrillation ([facility]) 03/01/2021 new onset, [facility] on apixaban CKD (chronic kidney disease) stage 3, GFR 30-59 ml/min ([facility]) 07/03/2013 GFR 36.9 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 11/01/2020 Coronary atherosclerosis CAD Cystitis 09/16/2018 >100,000 enterococcus pansensitive Cystitis 08/03/2020 10-100,000 E coli pansensitive Depressive disorder, not elsewhere classified Depression Gastric ulcer 06/30/2014 hgb 7.4 admitted [facility] Herpes zoster without complication 11/18/2020 right hip Hypertension goal BP (blood pressure) < 140/90 Macular hole of left eye Major depression, single episode MEDICATION USE AGREEMENT 03/19/2012 Tylenol with codeine--Reena Meningioma, cerebral ([facility]) 07/16/2022 small frontal cortex meningioma without mass effect Meningioma, cerebral ([facility]) 2022-08-02 Adding D32.0-Meningioma, cerebral (HCC) Dx to History Migraines history of migraines--stopped 1998 Mixed incontinence urge and stress (male)(female) Moderate mitral regurgitation 03/01/[address] Ndiaye Other and unspecified noninfectious gastroenteritis and colitis(558.9) 06/24/2013 admitted [facility] Other forms of retinal detachment(361.89) Pneumonia due to COVID-19 virus 12/09/2020 [place], transferred to [place] Postoperative anemia due to acute blood loss 03/11/2018 hgb 7, given 2 units PRBC hgb 9 on discharge Reflux esophagitis Scoliosis of lumbar spine Syncope and collapse 03/11/2018 hit head, admitted to [facility] Trochanteric bursitis of right hip 10/24/2020 Past Surgical History: Procedure Laterality Date ABDOMEN SURGERY PROCEDURE NEC liposuction CABG, ARTERIAL, TWO 02/[address] HEAD/BRAIN W/O CONTRAST MATERIAL 07/16/2022 chronic cerebellar infarct COLONOSCOPY, DIAGNOSTIC (RECTUM) 08/01/2016 normal /[facility] COLORECTAL CANCER SCREEN;W/FLE 08/2000 CT ABD/PELVIS W IV AND W ORAL CONTRAST N/A 10/05/2020 bilateral hip replacements, DJD of back, otherwise unremarkable. CTA HEAD W CONTRAST 07/14/2022 normal CTA NECK W CONTRAST 07/16/2022 no acute findings EGD, FLEXIBLE, DIAGNOSTIC 07/02/2014 esophagitis chronic gastritis with ulcers/inpt [facility] EGD, FLEXIBLE, DIAGNOSTIC 11/11/2014 reflux esophagitis/[facility] EGD, FLEXIBLE, DIAGNOSTIC 08/01/2016 gastritis, normal bx/[facility] INFORMATION repair retinal tear LASERING OF SECONDARY [...] Allergen Reactions Ergotamine vomit Nitro [Nitroglycerin] vomitting Family History Problem Relation Age of Onset Heart Disorder Mother age 84 CHF Allergies Father No Past Hx Father dies age 74 allergicRXN Heart Disorder Brother CAD, Dementia Heart Disorder Brother CAD Heart Disorder Brother CAD Heart Disorder Sister CAD Family History of Renal Disease No Social History Socioeconomic History Marital status: Spouse [...] on file Social History Narrative Zoya Howard Ramana Social Determinants of Health Financial Resource Strain: Not on file Food Insecurity: Not on file Transportation Needs: Not on file Physical Activity: Not on file Stress: Not on file Social Connections: Not on file Intimate Partner Violence: Not on file Housing Stability: Not on file Review of Systems: Only complaint is urinary frequency urinary incontinence and because of that she is not taking torsemide OBJECTIVE: PHYSICAL EXAM: BP 160/85 (BP Site: Right Arm, BP Position: Sitting, BP Cuff Size: Regular) | Pulse 85 | Temp 35.9 C (96.7 F) | Resp 18 | Wt 72.6 kg (160 lb) | SpO2 98% | BMI 30.23 kg/m | BSA 1.77 m General: alert, healthy, and no distress Head: Normocephalic, No masses, lesions, tenderness or abnormalities Heart: Regular soft systolic murmur heard Lungs: normal respiratory rate and rhythm, lungs clear to auscultation Abdomen: abdomen soft and non-tender Back: no costovertebral angle tenderness Extremities: no edema Neuro Exam: alert & oriented x 3 with fluent speech, no focal motor/sensory deficits Skin: no rashes or significant lesions BP Readings from Last 4 Encounters: 10/04/22 160/85 09/21/22 142/82 09/04/22 110/60 09/02/22 118/60 Wt Readings from Last 4 Encounters: 10/04/22 72.6 kg (160 lb) 09/04/22 72.1 kg (159 lb) 09/02/22 72.6 kg (160 lb) 07/27/22 71 kg (156 lb 8 oz) Estimated body mass index is 30.23 kg/m as calculated from the following: Height as of 07/06/22: 1.549 m (5' 1"). Weight as of this encounter: 72.6 kg (160 lb). Recent Labs Units 10/04/22 1159 07/27/22 1142 07/06/22 1339 SODIUM - [facility] mmol/L 141 142 141 POTASSIUM - [facility] mmol/L 3.6 4.3 3.9 CHLORIDE - [facility] mmol/L 101 105 102 CO2 - [facility] mmol/L 26 24 28 BUN - [facility] mg/dL 35* 39* 42* CREATININE - [facility] mg/dL 1.5* 2.2* 1.7* ESTIMATED GLOMERULAR FILTRATION RATE - [facility] mL/min 35* 22* 29* Recent Labs Units 10/04/22 1159 07/06/22 1339 06/08/21 1520 05/09/21 0000 05/06/21 1148 HGB - [facility] g/dL 12.0 11.6* 10.8* -- 12.5 HEMOGLOBIN-OUTSIDE LAB -- -- -- < > -- FERRITIN - [facility] ng/mL -- -- -- -- 301* TRANSFERRIN SATURATION PERCENT - [facility] % -- -- -- -- 23 < > = values in this interval not displayed. Recent Labs Units 10/04/22 1159 07/27/22 1142 07/06/22 1339 07/14/21 1459 06/08/21 1520 CALCIUM - [facility] mg/dL 10.7* 9.9 10.2 < > 9.8 PHOSPHORUS - [facility] mg/dL 3.3 -- -- -- 2.6 < > = values in this interval not displayed. No results for input(s): HGBA1C in the last 66489 hours. Recent Labs Units 07/27/22 1142 ALBUMIN / CREATININE RATIO, URINE - [facility] mg/g Creat 12 ASSESSMENT: KIM (acute kidney injury) ([facility]) (Primary) Her creatinine was 1.0 as of July 13, 2022 when she went to the hospital. After contrast exposure and starting torsemide and ?? Use of NSAIDS creatinine got as bad as 2.2 onJuly 2022 after which I was consulted. Patient is currently not taking torsemide because of extreme urinary frequency and urgency and incontinence Creatinine is already down to 1.5 now It is not entirely clear whether she was taking any prescription strength NSAIDs at that time or whether she is taking now. She believes she is not taking any Since she is not taking torsemide I have taken it off the list Advised her to follow low-salt diet and be on fluid restriction At this point she appears euvolemic even without torsemide and I do not think she really needs this. Stage 3b chronic kidney disease (HCC) She does have some underlying kidney disease secondary to hypertension and age But recent worsening was most likely secondary to torsemide and contrast and acute GI illness at the end of June 2022 Labs as below today Will repeat renal panel again next week to follow any improvement in kidney function as well as to follow calcium level which is slightly high today - CBC WITH WBC DIFFERENTIAL; Future; Expected date: 10/04/2022 - PTH; Future; Expected date: 10/04/2022 - PROTEIN/ CREATININE RATIO, URINE; Future; Expected date: 10/04/2022 - RENAL FUNCTION PANEL; Future; Expected date: 10/04/2022 - URINALYSIS WITH MICROSCOPIC EXAM; Future; Expected date: 10/04/2022 - MAGNESIUM; Future; Expected date: 10/04/2022 Follow Up: Return in about 6 months (around 04/06/2023) for Clinic Visit. | For: Clinic Visit Tirso Shah MD documented in this encounter Nursing Notes * Areli Coleman RN - 10/04/2022 11:05 AM EDT New patient today. States she was referred by PCP for changes in labs. documented in this encounter Plan of Treatment Upcoming Encounters Date Type Specialty Care Team Description 10/04/2022 Scheduled Telephone [facility] [place], [facility] [address] [place] [address] 10/05/2022 Scheduled Telephone [facility] [place], [facility] [address] [place] [address] 10/10/2022 Office Visit Family Con Borges MD [address] [place] [address] [place] [phone] 10/19/2022 Home Visit [facility] Lana Lieberman, [place]AR[place] [address] [place] [address] 10/24/2022 Telemedicine [facility] Anna Claudio CRNP [address] [facility] [place] [address] Ashley Castaneda [facility] [employer] [address] [place] [address] [place] [address] 01/29/2023 Office Visit Family Con Borges MD [address] [place] [address] [place] [address] 04/25/2023 [facility] Visit [facility] [address] [facility] [address] Pending Results Name Type Priority Associated Diagnoses Date /Time PTH Lab Routine Stage 3b chronic kidney disease (HCC) 10/04/2022 11:59 AM EDT Scheduled Orders Name Type Priority Associated Diagnoses Orde r Schedule PTH Lab Routine Stage 3b chronic kidney disease (HCC) Expected: 10/04/2022 (Approximate), Expires: 04/02/2023 PROTEIN/ CREATININE RATIO, URINE Lab Routine Stage 3b chronic kidney disease (HCC) Expected: 10/04/2022 (Approximate), Expires: 04/02/2023 URINALYSIS WITH MICROSCOPIC EXAM Lab Routine Stage 3b chronic kidney disease (HCC) Expected: 10/04/2022 (Approximate), Expires: 04/02/2023 Health Maintenance Due Date Last Done Comments [...] Additional history exists CKD HGB USE SMARTSET 48325 10/05/202310/04, 10/04/2022, 07/06/2022, Additional history exists CKD PHOS USE SMARTSET 16704 10/05/202309/19, 06/08/2021, 09/07/2020, Additional history exists Pneumococcal [...] Not on filedocumented as of this encounter Results * MAGNESIUM (10/04/2022 11:59 AM EDT) Magnesium 2.1 1.5 - 2.6 mg/dL 10/04/2022 1:13 PM EDT [facility]-02 Blood Venous blood specimen / Unknown Venipuncture / Unknown 10/04/2022 11:59 AM EDT 10/04/2022 12:00 PM EDT Tirso Shah MD LAB BLOOD ORDERABLES [facility] [address] [place] [id number] * (ABNORMAL) RENAL FUNCTION PANEL (10/04/2022 11:59 AM EDT) BUN 35(H) 6 - 20 mg/dL 10/04/2022 1:13 PM EDT [address] Creatinine 1.5(H) 0.5 - 1.0 mg/dL 10/04/2022 1:13 PM EDT [address] Estimated Glomerular Filtration Rate 35(L) >=60 mL/min 10/04/2022 1:13 PM EDT [address] Comment:eGFR is calculated b ased on the CKD-EPI 2020 equation Sodium 141 135 - 146 mmol/L 10/04/2022 1:13 PM EDT [address] Potassium 3.6 3.5 - 5.1 mmol/L 10/04/2022 1:13 PM EDT [facility] 56 Chloride 101 98 - 107 mmol/L 10/04/2022 1:13 PM EDT [facility] 56 CO2 26 22 - 32 mmol/L 10/04/2022 1:13 PM EDT [facility] 56 Anion Gap 14 7 - 15 mmol/L 10/04/2022 1:13 PM EDT [facility] 56 Glucose 104 70 - 120 mg/dL 10/04/2022 1:13 PM EDT [facility] 56 Calcium 10.7(H) 8.4 - 10.2 mg/dL 10/04/2022 1:13 PM EDT [facility] 56 Albumin 4.4 3.8 - 5.0 g/dL 10/04/2022 1:13 PM EDT [facility] 56 Phosphorus 3.3 2.5 - 4.8 mg/dL 10/04/2022 1:13 PM EDT [facility] 56 Blood Venous blood specimen / Unknown Venipuncture / Unknown 10/04/2022 11:59 AM EDT 10/04/2022 12:00 PM EDT Tirso Shah MD LAB BLOOD ORDERABLES [facility]-[address] [place] [address] documented in this encounter Visit Diagnoses Diagnosis KIM (acute kidney injury) (HCC)- Primary Acute kidney failure, unspecified Stage 3b chronic kidney disease (HCC) documented in this encounter Care Teams Senior Human Resources Representative Relationship Specialty Start Date End Date Con Coughlin MD [address] [place] [address] [place] [address] PCP - General Family Medicine 06/30/14 documented as of this encounter
--- OUTSIDE RECORDS SUMMARY | 2023-01-29 20:12 | External Medical Summary | Summary of Care ---
Author Name Unknown Organization [facility] Address [address] [place] [facility] [place] [address] Phone [phone] Care Team Providers Care Senior Hydrogeologist Name Role Phone Con Coughlin MD Primary Care Provider Reason for Visit * Reason Onset Date Comments [facility]: Maintenance 10/04/2022 Encounter Details Date Type Department Care Team Description 10/04/2022 Scheduled Telephone [facility], [facility] [address] [facility] [place] [address] Coordinator, [facility] [address] [facility] [place] [address] Allergies Active Allergy Reactions Severity Noted Date [...] blood pressure less than 140/90,Atherosclero sis of minto coronary artery of minto heart without angina pectoris,Primary hypertension TAKE ONE [...] episode 04/07/2022 Food insecurity 08/01/2021 Overview: Per [facility] Protocol Hypertensive heart and kidne [...] Chronic atrial fibrillation 03/01/2021 Overview: new onset, [facility] on apixaban Last Assessment & 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 [facility] Telephonic Nurse Follow-Up Call [facility] Subprogram: Short-Term Management (less than 3 months) Follow Up Call Type: 24 hour follow up Acute issue requiring follow-up call: Heart Failure Exacerbation Call placed to the pt. No answer. LMOM Objective: 10/04/2022 11:02 AM 09/21/2022 2:18 PM [...] Remote Patient Monitoring: AMC Scale: weight loss 1 lb Oxygen Needs: NO supplemental oxygen needs identified DME Needs: NO DME needs identified Medications: Current DTP: Double dose of Torsemide for 3 days Condition Status: [facility] Disposition: Follow up call scheduled for tomorrow with [facility] Park Recreation Manager Future Visits Scheduled: Future Appointments-next 60 days Date/Time Provider Specialty Dept Phone 10/04/2022 3:30 PM [facility] [phone] 10/05/2022 10:15 AM [facility] [phone] 10/10/2022 4:20 PM (Arrive by 4:05 PM) Con Coughlin MD Family Medicine [phone] 10/19/2022 4:00 PM Lana Lieberman RN [facility] [phone] 10/24/2022 4:30 PM Ashley Castaneda [facility] Thoroughbred Horse Farm Manager; EMIR Hewitt [facility] [phone] 01/29/2023 12:00 PM (Arrive by 11:45 AM) Con Coughlin MD Family Medicine [phone] 04/25/2023 2:40 PM (Arrive by 2:25 PM) Tirso Shah MD Nephrology [phone] Darling Roe, RN documented in this encounter Plan of Treatment Upcoming Encounters Date Type Specialty Care Team Description 10/05/2022 Scheduled Telephone [facility]el Roller Operator, [address] [place] [address] 10/10/2022 Office Visit Family Medicine Con Coughlin MD [address] [place] [address] [place] [address] 10/19/2022 Home Visit [facility] Lana Lieberman, KHARI [address] [facility] [place] [address] 10/24/2022 Telemedicine [facility] Anna Claudio CRNP [address] [place] [address] Ashley Castaneda [facility] Thoroughbred Horse Farm Manager [address] [place] [address] [place] [address] 01/29/2023 Office Visit Family Medicine Con Coughlin MD [address] [place] [address] [place] [address] 04/25/2023 Office Visit Nephrology Tirso Shah MD [address] [place] [address] Health Maintenance Due Date Last Done Comments [...] Additional history exists CKD HGB USE SMARTSET 26978 10/05/202310/04, 10/04/2022, 07/06/2022, Additional history exists CKD PHOS USE SMARTSET 60924 10/05/202309/19, 06/08/2021, 09/07/2020, Additional history exists Pneumococcal [...] filedocumented as of this encounter Care Teams Senior Hydrogeologist Relationship Specialty Start Date End Date Con Coughlin MD [address] [place] [address] [place] [address] PCP - General Family Medicine 06/30/14 documented as of this encounter
--- OUTSIDE RECORDS SUMMARY | 2023-01-29 20:12 | External Medical Summary | Summary of Care ---
Author Name Unknown Organization [facility] Address [address] [place] [address] Phone [phone] Care Team Providers Care Solar/Renewable Energy Sales Name Role Phone Con Coughlin MD Primary Care Provider Reason for Visit * Reason Onset Date Comments FYI 09/20/2022 Encounter Details Date Type Department Care Team Description 09/20/2022 Telephone Family [address] [phone] Con Coughlin MD [address] [place] [address] [place] [phone] FYI Allergies Active Allergy Reactions Severity Noted Date Comments Ergotamine 03/01/2000 vomit Nitroglycerin 03/14/2007 vomitting documented as of this encounter (statuses as of 09/20/2022) Medications Medication Sig Dispensed Refills Start Date [...] blood pressure less than 140/90,Atherosclero sis of ambler coronary artery of ambler heart without angina pectoris,Primary hypertension TAKE ONE [...] as of this encounter (statuses as of 09/20/2022) Active Problems Problem Noted Date Current moderate episode of major depressive disorder without prior episode 04/07/2022 Food insecurity 08/01/2021 Overview: Per [facility] Protocol Hypertensive heart and kidne [...] pain concerns. She is aware [facility] does not manage chronic pain meds. With her history of confusion, would recommend against use of narcotic medication. 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 Last Assessment & Plan: Stable no angina -continue rosuvastatin, metopropolol, Anxiety state Last Assessment & Plan: Stable on buspar, Primary hypertension Gastroesophageal reflux disease with eso phagitis without hemorrhage Last Assessment & Plan: symptoms controlled on pantoprazole Scoliosis of lumbar spine Mixed incontinence urge and stress (male )(female) documented as of this encounter (statuses as of 09/20/2022) Resolved Problems Problem Noted Date Resolved Date [...] 06/30/2014 06/26/2017 Overview: hgb 7.4 admitted [facility] CKD (chronic kidney disease) stage 3, GFR [...] as of this encounter (statuses as of 09/20/2022) Immunizations Name Administration Dates Next Due COVID-19 [...] encounter Miscellaneous Notes * Telephone Encounter - Nickie Warren LPN - 09/20/2022 4:14 PM EDT Noted Will be signed and returned via fax once signed * Telephone Encounter - TAM Tate - 09/20/2022 3:16 PM EDT Prudence is reporting that a plan of care will be faxed to office, needs provider to complete sign anddate. documented in this encounter Plan of Treatment Upcoming Encounters Date Type Specialty Care Team Description 09/21/2022 Home Visit [facility] Lana Lieberman, RN [address] [facility] [place] [address] 10/04/2022 Office Visit Nephrology Tirso Shah MD [address] [facility] [place] [address] 10/24/2022 Telemedicine [facility] Anna Claudio CRNP [address] [place] [address] Ashley Castaneda, Community [facility] Silver Solution Mixer [address] [place] [address] [place] [address] 01/29/2023 Office Visit Family Medicine Con Coughlin MD [address] [place] [address] [place] [address] Health Maintenance Due Date Last Done Comments DTaP,Tdap,and Td Vaccines (1 - Tdap) 11/15/1957 COVID-19 Vaccine (5 - Mixed Product series) 06/14/2020 04/19/2020, 04/04/2020, 03/22/2020, Additional history exists Depression Screening, Annual for Pts 12 and Over 09/29/2020 09/30/2019 CKD PHOS USE SMARTSET 26372 06/08/202205/21, 09/07/2020, 08/17/2020, Additional history exists Influenza Vaccine (FLU shot) (#1) 2022 01/10/2022, 11/18/2020, 12/06/2019, Additional history exists CKD HGB USE SMARTSET 73258 07/07/202307/06, 07/06/2022, 06/08/2021, Additional history exists Albumin/Creatinine [...] filedocumented as of this encounter Care Teams Solar/Renewable Energy Sales Relationship Specialty Start Date End Date Con Coughlin MD [address] [place] [address] [place] [address] PCP - General Family Medicine 06/30/14 documented as of this encounter
--- OUTSIDE RECORDS SUMMARY | 2023-01-29 20:12 | External Medical Summary ---
Author Name Unknown Address Unknown Organization [id number]:[facility] [address] [place] [address] Laboratory Report Ordering Provider Test Date Status DORIAN GOMEZ 10/04/2022 11:59:49 Final Observation Date Value Abnormality Reference (Units ) Status BUN 10/04/2022 11:59:49 35 Above high normal 6-20 (mg/dL) Final Creatinine 10/04/2022 11:59:49 1.5 Above high normal 0.5-1.0 (mg/dL) Final Glomerular filtration rate/1.73 sq M.predicted [Volume Rate/Area] in Serum, Plasma or Blood by Creatinine-based formula (CKD-EPI) 10/04/2022 11:59:49 35 Below low normal >=60 (mL/min) Final eGFR is calculated based on the CKD-EPI 2020 equation SODIUM 10/04/2022 11:59:49 141 135-146 (m mol/L) Final Potassium 10/04/2022 11:59:49 3.6 3.5-5.1 (m mol/L) Final Cl 10/04/2022 11:59:49 101 98-107 (mm ol/L) Final CO2 10/04/2022 11:59:49 26 22-32 (mmo l/L) Final Anion gap 10/04/2022 11:59:49 14 7-15 (mmol /L) Final Glucose 10/04/2022 11:59:49 104 70-120 (mg /dL) Final Calcium 10/04/2022 11:59:49 10.7 Above high normal 8. 4-10.2 (mg/dL) Final Albumin 10/04/2022 11:59:49 4.4 3.8-5.0 (g /dL) Final Phosphate 10/04/2022 11:59:49 3.3 2.5-4.8 (m g/dL) Final Performing Location [facility] [place] [address] [address]
--- OUTSIDE RECORDS SUMMARY | 2023-01-29 20:12 | External Medical Summary ---
Author Name Unknown Address Unknown Organization K01:[facility] - [address] [place] [address] Laboratory Report Ordering Provider Test Date Status DORIAN GOMEZ 10/04/2022 11:59:49 Final Observation Date Value Abnormality Reference (Units ) Status Parathyrin.intact [Mass/volume] in Serum or Plasma 10/04/2022 11:59:49 123 Above high normal 15-65 (pg/mL) Final Performing Location [facility] - [address] [facility] [address]
--- OUTSIDE RECORDS SUMMARY | 2023-01-29 20:12 | External Medical Summary | Summary of Care ---
Author Name Unknown Organization [facility] Address [address] [place] [address] Phone [phone] Care Team Providers Care Retail And Promotions Coordinator Name Role Phone Con Coughlin MD Primary Care Provider Reason for Visit * Reason Onset Date Comments Test Results 10/06/2022 Encounter Details Date Type Department Care Team Description 10/06/2022 Telephone [facility] [address] [place] [address] Tirso Shah MD 200 [facility] [place] [address] Test Results Allergies Active Allergy Reactions Severity Noted Date Comments Ergotamine 03/01/2000 vomit Nitroglycerin 03/14/2007 vomitting documented as of this encounter (statuses as of 10/06/2022) Medications Medication Sig Dispensed Refills Start Date [...] blood pressure less than 140/90,Atherosclero sis of muckleshoot coronary artery of muckleshoot heart without angina pectoris,Primary hypertension TAKE ONE [...] as of this encounter (statuses as of 10/06/2022) Active Problems Problem Noted Date Current moderate [...] her pain concerns. She is aware [facility] does not manage chronic pain meds. 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muck[place] co ronary artery of muckleshoot heart without angina pectoris Last Assessment & Plan: Stable no angina -continue rosuvastatin, metopropolol, Anxiety state Last Assessment & Plan: Stable on buspar, Primary hypertension Gastroesophageal reflux disease with eso phagitis without hemorrhage Last Assessment & Plan: symptoms controlled on pantoprazole Scoliosis of lumbar spine Mixed incontinence urge and stress (male )(female) documented as of this encounter (statuses as of 10/06/2022) Resolved Problems Problem Noted Date Resolved Date [...] as of this encounter (statuses as of 10/06/2022) Immunizations Name Administration Dates Next Due COVID-19 [...] encounter Miscellaneous Notes * Telephone Encounter - Areli Coleman RN - 10/06/2022 2:01 PM EDT Te with pt.She is aware not to take Torsemide. Not on med list currently. Aware to repeat labs nextweek. Order placed. * Telephone Encounter - Areli Coleman RN - 10/06/2022 2:00 PM EDT ----- Message from Tirso Shah MD sent at 10/06/2022 11:13 AM EDT ----- Kidney function better as she is barely taking torsemide. Confirm she stops this. Repeat renal panel next week when she sees PCP. documented in this encounter Plan of Treatment Upcoming Encounters Date Type Specialty Care Team Description 10/10/2022 Office Visit Family Con Borges MD [address] [place] [address] [place] [address] 10/19/2022 Home Visit [facility] Lana Lieberman RN [address] [facility] [place] [address] 10/24/2022 Telemedicine [facility] Anna Claudio CRNP [address] [place] [address] Ashley Castaneda Community [facility] Furniture Builder [address] [place] [address] [place] [address] 01/29/2023 Office Visit Family Con Borges MD [address] [place] [address] [place] [address] 04/25/2023 Office Visit Nephrology Tirso Shah MD [address] [place] [address] [place] [address] Scheduled Orders Name Type Priority Associated Diagnoses Orde r Schedule RENAL FUNCTION PANEL Lab Routine Hypertensive heart and kidney disease with chronic diastolic congestive heart failure and stage 3b chronic kidney disease (HCC) Expected: 10/10/2022 (Approximate), Expires: 10/07/2023 Health Maintenance Due Date Last Done Comments [...] Additional history exists CKD HGB USE SMARTSET 87373 10/05/202310/04, 10/04/2022, 07/06/2022, Additional history exists CKD PHOS USE SMARTSET 25654 10/05/202309/19, 06/08/2021, 09/07/2020, Additional history exists Pneumococcal [...] Primary documented in this encounter Care Teams Retail And Promotions Coordinator Relationship Specialty Start Date End Date Con Coughlin MD [address] [place] [address] [place] [phone] PCP - General Family Medicine 06/30/14 documented as of this encounter
--- OUTSIDE RECORDS SUMMARY | 2023-01-29 20:12 | External Medical Summary ---
Author Name Unknown Address Unknown Organization K09[facility] [place] [address] Laboratory Report Ordering Provider Test Date Status DORIAN GOMEZ 10/04/2022 11:59:49 Final Observation Date Value Abnormality Reference (Units ) Status SYNC LEUKOCYTES IN BLOOD BY AUTOMATED COUNT 10/04/2022 11:59:49 8.75 4.00-10.80 (K/uL) Final Segs 10/04/2022 11:59:49 57.6 40.0-75.0 (%) Final Lymphs % 10/04/2022 11:59:49 30.2 18.0-42.0 (%) Final Monos 10/04/2022 11:59:49 8.9 1.0-11.0 (%) Final Eosinophils 10/04/2022 11:59:49 3.1 0.0-6.0 (%) Final Basos 10/04/2022 11:59:49 0.2 0.0-2.0 (%) Final Absolute Segs 10/04/2022 11:59:49 5.04 1.80-7.70 (K/uL) Final Lymphs, absolute 10/04/2022 11:59:49 2.64 1.00-4.80 (K/ul) Final Monos, Abs 10/04/2022 11:59:49 0.78 0.00-1.10 (K/uL) Final Eos, Abs 10/04/2022 11:59:49 0.27 0.00-0.70 (K/uL) Final Basos, Abs 10/04/2022 11:59:49 0.02 0.00-0.20 (K/uL) Final Performing Location [facility] [address] [place] [address]
--- OUTSIDE RECORDS SUMMARY | 2023-01-29 20:12 | External Medical Summary | Summary of Care ---
Author Name Unknown Organization [facility] Address [address] [place] [place] [address] Phone [phone] Care Team Providers Care Business Control Specialist Name Role Phone Con Coughlin MD Primary Care Provider Reason for Visit * Reason Comments eRx-Medication Refill Encounter Details Date Type Department Care Team Description 09/21/2022 Refill [facility], [facility] [address] [facility] [place] [address] Con Coughlin MD [address] [place] [address] [place] [address] ANXIETY STATE NOS Allergies Active Allergy Reactions Severity Noted Date [...] 06/06/2021 Active Torsemide 20 MG Oral Tablet (Demadex)Indicati ons:Chronic right-sided congestive heart failure (HCC) Take as [...] blood pressure less than 140/90,Atheroscle rosis of inupiat coronary artery of inupiat heart without angina pectoris,Primary hypertension TAKE ONE [...] bedtime as needed for Sleep. 0 Active Diphenoxylate-Atr opine 2.5-0.025 MG Oral Tablet (Lomotil) Take by [...] 0 Active Gabapentin 300 MG Oral Capsule (Neurontin)Indica tions:DDD (degenerative disc disease), lumbar TAKE ONE CAPSULE BY MOUTH TWICE DAILY 60 Capsule 5 08/28/2022 Active Eliquis 5 MG Oral Tablet Take 1 Tablet by mouth in the morning and 1 Tablet before bedtime. 0 08/25/2022 Active busPIRone HCl 10 MG Oral Tablet (Buspar)Indicatio ns:Anxiety state TAKE ONE TABLET BY MOUTH TWICE DAILY 60 Tablet 5 09/22/2022 Active busPIRone HCl 10 MG Oral Tablet (Buspar)Indicatio ns:Anxiety state TAKE ONE TABLET BY MOUTH TWICE DAILY 60 Tablet 5 04/05/2022 09/23/19 23 Discontinued documented as of this encounter (statuses as of 09/22/2022) Active Problems Problem Noted Date Current moderate episode of major depressive disorder without prior episode 04/07/2022 Food insecurity 08/01/2021 Overview: Per [facility] Protocol Hypertensive heart and kidne [...] discuss her pain concerns. She is aware [facility] does not manage chronic pain 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inupiat co ronary artery of inupiat heart without angina pectoris Last Assessment & [...] 1 03/31/2021 07/27/2021 Chronic narcotic dependence 11/10/2020 1103/2021 Closed fracture of one rib of right [...] encounter Miscellaneous Notes * Telephone Encounter - Mike Valles MD - 09/22/2022 12:38 PM EDT Signed Prescriptions: Disp Refills busPIRone HCl 10 MG Oral Tablet (Buspar) 60 Tab*5 Sig: TAKE ONE TABLET BY MOUTH TWICE DAILY Authorizing Provider: MIKE VALLES * Telephone Encounter - Francheska Hernandez LPN - 09/22/2022 11:30 AM EDTPending Prescriptions: Disp Refills busPIRone HCl 10 MG Oral Tablet [Pharmacy *60 Tab*5 Sig: TAKE ONE TABLET BY MOUTH TWICE DAILY * Telephone Encounter - Francheska Hernandez LPN - 09/22/2022 11:27 AM EDT Did you pend patient's preferred pharmacy and medication before forwarding?yes Pharmacy: [facility], [address] [place] Pending Prescriptions: Disp Refills busPIRone HCl 10 MG Oral Tablet (Buspar) *60 Tab*5 Sig: TAKE ONE TABLET BY MOUTH TWICE DAILY Last Visit: Visit date not found (in office), 04/07/2022 (telemedicine) Next Visit: 10/19/2022 If no future appointments scheduled, and last appointment is greater than a year ago, please schedule patient for a follow-up appointment Last date the medication was ordered: 04/05/22 Is this request for a controlled substance?No Urine Drug Screen: Results for orders placed or performed in visit on 08/17/20 TOXICOLOGY, URINESCREEN Result Value Amphetamine Negative Benzodiazepines Negative Cannabinoids [...] Labs: Lab Results Component Value Date/Time CREAT 2.2 (H) 07/27/2022 11:42 AM CREAT 1.08 05/09/2021 12:00 AM CREAT 1.4 (H) 06/16/2019 10:39 AM POTASSIUM 4.3 07/27/2022 11:42 AM POTASSIUM 4.5 05/09/2021 12:00 AM POTASSIUM [...] 12:00 AM HGBA1C 5.2 11/04/2013 12:09 PM Francheska Hernandez LPN [facility] 09/22/2022,11:27 AM * Telephone Encounter - Meron Liriano RPh - 09/22/2022 7:49 AM EDTPending Prescriptions: Disp Refills busPIRone HCl 10 MG Oral Tablet [Pharmacy *60 Tab*5 Sig: TAKE ONE TABLET BY MOUTH TWICE DAILY documented in this encounter Plan of Treatment Upcoming Encounters Date Type Specialty Care Team Description 10/04/2022 Office Visit Nephrology Tirso Shah MD [address] [place] [address] 10/19/2022 Home Visit [facility] Lana Lieberman RN [address] [place] [address] 10/24/2022 Telemedicine [facility] Anna Claudio CRNP [address] [facility] [place] [address] Ashley Castaneda Community [facility] City Maintenance Manager [address] [place] [address] [place] [address] 01/29/2023 Office Visit Family Medicine Con Coughlin MD [address] [place] [address] [place] [address] Health Maintenance Due Date Last Done Comments DTaP,Tdap,and Td Vaccines (1 - Tdap) 11/15/1957 COVID-19 Vaccine (5 - Mixed Product series) 06/14/2020 04/19/2020, 04/04/2020, 03/22/2020, Additional history exists Depression Screening, Annual for Pts 12 and Over 09/29/2020 09/30/2019 CKD PHOS USE SMARTSET 97564 06/08/202205/21, 09/07/2020, 08/17/2020, Additional history exists Influenza Vaccine (FLU shot) (#1) 2022 01/10/2022, 11/18/2020, 12/06/2019, Additional history exists CKD HGB USE SMARTSET 28983 07/07/202307/06, 07/06/2022, 06/08/2021, Additional history exists Albumin/Creatinine [...] as of this encounter Visit Diagnoses Diagnosis ANXIETY STATE NOS Anxiety state, unspecified documented in this encounter Care Teams Business Control Specialist Relationship Specialty Start Date End Date Con Coughlin MD [address] [place] [address] [place] [address] PCP - General Family Medicine 06/30/14 documented as of this encounter
--- OUTSIDE RECORDS SUMMARY | 2023-01-29 20:12 | External Medical Summary | Summary of Care ---
Author Name Unknown Organization [facility] Address [address] [place] [address] Phone [phone] Care Team Providers Care Pipeline Maintenance Supervisor Name Role Phone Con Coughlin MD Primary Care Provider Reason for Visit * Reason Comments Outpatient Testing Encounter Details Date Type Department Care Team Description 10/04/2022 Laboratory [facility] [address] [place] [address] [place], [facility] [address] [place] [address] Hypertensive heart and kidney disease with chronic diastolic congestive heart failure and stage 3b chronic kidney disease (HCC); Stage 3b chronic kidney disease (HCC) Allergies [...] Additional Information Patient not taking.Reported on 10/04/2022 Torsemide 20 MG Oral Tablet (Demadex)Indication s:Chronic [...] blood pressure less than 140/90,Atherosclero sis of [place] coronary artery of [place] heart without angina pectoris,Primary hypertension TAKE ONE [...] episode 04/07/2022 Food insecurity 08/01/2021 Overview: Per [facility] Protocol Hypertensive heart and kidne 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[place] co ronary artery of [place] heart without angina pectoris Last Assessment & [...] Team Description 10/04/2022 Scheduled Telephone [facility] [address] [place] [phone] 10/05/2022 Scheduled Telephone [facility] [address] [place] [address] 10/10/2022 Office Visit Family Medicine Con Coughlin MD [address] [place] [address] [place] [address] 10/19/2022 Home Visit [facility] Lana Lieberman, RN [address] [facility] [address] 10/24/2022 Telemedicine [facility] Anna Claudio CRNP [address] [facility] [place] [address] Ashley Castaneda [facility] [employer] Grader [address] [place] [address] [place] [phone] 01/29/2023 Office Visit Family Con Borges MD [address] [place] [address] [place] [phone] 04/25/2023 Office Visit Nephrology Tirso Shah MD [address] [place] [address] Pending Results Name Type Priority Associated Diagnoses Date /Time CBC WITH WBC DIFFERENTIAL Lab Routine Stage 3b chronic kidney disease (HCC) 10/04/2022 11:59 AM EDT PTH Lab Routine Stage 3b chronic kidney disease (HCC) 10/04/2022 11:59 AM EDT RENAL FUNCTION PANEL Lab Routine Stage 3b chronic kidney disease (HCC) 10/04/2022 11:59 AM EDT MAGNESIUM Lab Routine Stage 3b chronic kidney disease (HCC) 10/04/2022 11:59 AM EDT CBC Lab Routine Stage 3b chronic kidney disease (HCC) 10/04/2022 11:59 AM EDT DIFFERENTIAL, AUTOMATED Lab Routine Stage 3b chronic kidney disease (HCC) 10/04/2022 11:59 AM EDT Health Maintenance Due Date Last Done Comments DTaP,Tdap,and Td Vaccines (1 - Tdap) 11/15/1957 COVID-19 Vaccine (5 - Mixed Product series) 06/14/2020 04/19/2020, 04/04/2020, 03/22/2020, Additional history exists Depression Screening, Annual for Pts 12 and Over 09/29/2020 09/30/2019 CKD PHOS USE SMARTSET 24422 06/08/202205/21, 09/07/2020, 08/17/2020, Additional history exists Influenza Vaccine (FLU shot) (#1) 2022 01/10/2022, 11/18/2020, 12/06/2019, Additional history exists CKD HGB USE SMARTSET 99356 07/07/202307/06, 07/06/2022, 06/08/2021, Additional history exists Albumin/Creatinine [...] and stage 3b chronic kidney disease (HCC) Stage 3b chronic kidney disease (HCC) documented in this encounter Care Teams Pipeline Maintenance Supervisor Relationship Specialty Start Date End Date Con Coughlin MD [address] [place] [address] [place] [phone] PCP - General Family Medicine 06/30/14 documented as of this encounter
--- OUTSIDE RECORDS SUMMARY | 2023-01-29 20:12 | External Medical Summary ---
Author Name Unknown Address Unknown Organization [facility] [address] [place] [address] Laboratory Report Ordering Provider Test Date Status DORIAN GOMEZ 10/04/2022 11:59:49 Final Observation Date Value Abnormality Reference (Units ) Status WBC, Total 10/04/2022 11:59:49 8.75 4.00-10.8 0 (K/uL) Final RBC 10/04/2022 11:59:49 4.00 3.85-5.15 (M/uL) Final Hemoglobin 10/04/2022 11:59:49 12.0 12.0-15.3 (g/dL) Final HCT 10/04/2022 11:59:49 37.5 36.0-45.2 (%) Final MCV 10/04/2022 11:59:49 93.8 81.5-97.5 (fL) Final MCH 10/04/2022 11:59:49 30.0 27.0-34.0 (pg) Final MCHC 10/04/2022 11:59:49 32.0 32.0-36.0 (g/dL) Final RDW 10/04/2022 11:59:49 14.3 11.5-15.5 (%) Final Platelets 10/04/2022 11:59:49 187 140-400 (K /uL) Final MPV 10/04/2022 11:59:49 10.4 6.6-11.1 ( fL) Final Performing Location [facility] [address] [place] [address]
--- OUTSIDE RECORDS SUMMARY | 2023-01-29 20:13 | External Medical Summary | Summary of Care ---
Author Name Unknown Organization [facility] Address [address] [place] [address] Phone [phone] Care Team Providers Care Occupational Therapy Teacher Name Role Phone Con Coughlin MD Primary Care Provider Reason for Visit * Reason Onset Date Comments Advice 09/04/2022 Encounter Details Date Type Department Care Team Description 09/04/2022 Telephone [facility], [facility] [address] [place] [address] Maia Yao RN [address] [place] [address] Advice Allergies Active Allergy Reactions Severity Noted Date Comments Ergotamine 03/01/2000 vomit Nitroglycerin 03/14/2007 vomitting documented as of this encounter (statuses as of 09/04/2022) Medications Medication Sig Dispensed Refills Start Date [...] blood pressure less than 140/90,Atherosclero sis of [place] coronary artery of [place] heart without angina pectoris,Primary hypertension TAKE ONE [...] as of this encounter (statuses as of 09/04/2022) Active Problems Problem Noted Date Current moderate episode of major depressive disorder without prior episode 04/07/2022 Food insecurity 08/01/2021 Overview: Per [facility] Protocol Hypertensive heart and kidne y [...] discuss her pain concerns. She is aware [facility] does not manage chronic pain meds. With her history of confusion, would recommend against use of narcotic medication. Mild aortic stenosis 07/27/2021 Last Assessment & Plan: Following with cardiology Aortocoronary bypass status 03/09/2021 Chronic atrial fibrillation 03/01/2021 Overview: new onset, [facility] on apixaban Last Assessment & 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[place] co ronary artery of [place] heart without angina pectoris Last Assessment & Plan: Stable no angina -continue rosuvastatin, metopropolol, Anxiety state Last Assessment & Plan: Stable on buspar, Primary hypertension Gastroesophageal reflux disease with eso phagitis without hemorrhage Last Assessment & Plan: symptoms controlled on pantoprazole Scoliosis of lumbar spine Mixed incontinence urge and stress (male )(female) documented as of this encounter (statuses as of 09/04/2022) Resolved Problems Problem Noted Date Resolved Date [...] 06/30/2014 06/26/2017 Overview: hgb 7.4 admitted [facility] CKD (chronic kidney disease) stage [...] as of this encounter (statuses as of 09/04/2022) Immunizations Name Administration Dates Next Due COVID-19 [...] encounter Miscellaneous Notes * Telephone Encounter - Dre Morillo MD - 09/04/2022 3:54 PM EDT Impression: Slowly improving volume status w/ oral DTP Plan: Continue torsemide 20 mg bid for now Low na diet, fluid restriction Phone f/u tomorrow. Dre Morillo MD 09/04/2022 3:58 PM * Telephone Encounter - Maia Yao RN - 09/04/2022 3:45 PM EDT Sent the following to [facility] TT role: Communication Note Name: Zoya Howard Situation: Patient being seen for follow up for fluid retention. Background: Pt was seen 09/02 for acute visit to assess increase in wt and sob. Hx of HF and non compliance withmedications. Pt was in fact found not to be taking her torsemide 20 mg daily for at least a week. Baseline wt around 155. Wt 09/02: 160 lbs Wt 09/04: 158 lbs Pt restarted torsemide 20mg on 09/02 and did DTP taking an additional 20 mg on 09/02,,. Assessment: Vitals: 110/60, 98.1-76-20, spo2 99% room air Patient still dyspneic with minimal exertion. Lungs with crackles in LLL. Less edema in ankles/feet today, non pitting / trace. Pt is improved but not back to baseline. Recommendation: Message to [facility] for additional recommendations for fluid overload. documented in this encounter Plan of Treatment Upcoming Encounters Date Type Specialty Care Team Description 10/04/2022 Office Visit Nephrology Tirso Shah MD [address] [place] [address] 10/13/2022 [facility]medicine [facility] Anna Claudio CRNP [address] [place] [address] Ashley Cast[facility]eda [facility] [address] [place] [address] [place] [phone] 01/29/2023 Office Visit Family Medicine Con Coughlin MD [address] [place] [address] [place] [phone] Health Maintenance Due Date Last Done Comments DTaP,Tdap,and Td Vaccines (1 - Tdap) 11/15/1957 COVID-19 Vaccine (5 - Mixed Product series) 06/14/2020 04/19/2020, 04/04/2020, 03/22/2020, Additional history exists Depression Screening, Annual for Pts 12 and Over 09/29/2020 09/30/2019 CKD PHOS USE SMARTSET 07408 06/08/202205/21, 09/07/2020, 08/17/2020, Additional history exists Influenza Vaccine (FLU shot) (#1) 2022 01/10/2022, 11/18/2020, 12/06/2019, Additional history exists CKD HGB USE SMARTSET 03206 07/07/202307/06, 07/06/2022, 06/08/2021, Additional history exists Albumin/Creatinine [...] filedocumented as of this encounter Care Teams Occupational Therapy Teacher Relationship Specialty Start Date End Date Con Coughlin MD [address] [place] [address] [place] [phone] PCP - General Family Medicine 06/30/14 documented as of this encounter
--- OUTSIDE RECORDS SUMMARY | 2023-01-29 20:13 | External Medical Summary | Summary of Care ---
Author Name Unknown Organization [facility] Address [address] [place] [address] Phone [phone] Care Team Providers Care Advertising Layout Worker Name Role Phone Con Coughlin MD Primary Care Provider Reason for Visit * Reason Onset Date Comments Advice 09/04/2022 Encounter Details Date Type Department Care Team Description 09/04/2022 Telephone [facility], [facility] [address] [place] [address] Maia Yao RN [address] [place] [address] Advice Allergies Active Allergy Reactions Severity Noted [...] blood pressure less than 140/90,Atherosclero sis of [place] coronary artery of [place] heart without angina pectoris,Primary hypertension TAKE ONE [...] episode 04/07/2022 Food insecurity 08/01/2021 Overview: Per [facility] Protocol Hypertensive heart and kidne y [...] her pain concerns. She is aware [facility] does not manage chronic pain meds. With her history of confusion, would recommend against use of narcotic medication. Mild aortic stenosis 07/27/2021 Last Assessment & Plan: Following with cardiology Aortocoronary bypass status 03/09/2021 Chronic atrial fibrillation 03/01/2021 Overview: new onset, [facility] on apixaban Last Assessment & 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[place] co ronary artery of [place] heart without angina pectoris Last Assessment [...] ulcer 06/30/2014 06/26/2017 Overview: hgb 7.4 admitted [facility] CKD (chronic kidney disease) stage [...] 3:45 PM EDT Sent the following to [facility] TT role: Communication Note Name: Zoya Howard [...] not back to baseline. Recommendation: Message to [facility] for additional recommendations for fluid overload. documented in this encounter Plan of Treatment Upcoming Encounters Date Type Specialty Care Team Description 09/04/2022 Home Visit [facility] Maia Yao RN [address] [place] [address] Hypertensive heart and kidney disease with chronic diastolic congestive heart failure and stage 3b chronic kidney disease (HCC)* 10/04/2022 Office Visit Nephrology Tirso Shah MD [address] [facility] [place] [address] 10/13/2022 Telemedicine [facility] Anna Claudio CRNP [address] [place] [address] Ashley Castaneda [facility] Automobile Damage Field Appraiser [address] [place] [address] [place] [phone] 01/29/2023 Office Visit Family Medicine Con Coughlin MD [address] [place] [address] [place] [address] Health Maintenance Due Date Last Done Comments DTaP,Tdap,and Td Vaccines (1 - Tdap) 11/15/1957 COVID-19 Vaccine (5 - Mixed Product series) 06/14/2020 04/19/2020, 04/04/2020, 03/22/2020, Additional history exists Depression Screening, Annual for Pts 12 and Over 09/29/2020 09/30/2019 CKD PHOS USE SMARTSET 58980 06/08/2022 04/, 09/07/2020, 08/17/2020, Additional history exists Influenza Vaccine (FLU shot) (#1) 2022 01/10/2022, 11/18/2020, 12/06/2019, Additional history exists CKD HGB USE SMARTSET 51497 07/07/202307/06, 07/06/2022, 06/08/2021, Additional history exists Albumin/Creatinine [...] filedocumented as of this encounter Care Teams Advertising Layout Worker Relationship Specialty Start Date End Date Con Coughlin MD [address] [place] [address] [place] [phone] PCP - General Family Medicine 06/30/14 documented as of this encounter
--- OUTSIDE RECORDS SUMMARY | 2023-01-29 20:13 | External Medical Summary | Summary of Care ---
Author Name Unknown Organization [facility] Address [address] [place] [address] Phone [phone] Care Team Providers Care Corporation Secretary Name Role Phone Con Coughlin MD Primary Care Provider [phone] Reason for Visit * Reason Onset Date Comments [facility]: Maintenance 09/05/2022 Encounter Details Date Type Department Care Team Description 09/05/2022 Telephone [facility], [address] [address] Mago [place], [facility] Hand Spring Repairer Helper [facility]: Maintenance Allergies Active Allergy Reactions Severity Noted Date Comments Ergotamine 03/01/2000 vomit Nitroglycerin 03/14/2007 vomitting documented as of this encounter (statuses as of 09/05/2022) Medications Medication Sig Dispensed Refills Start Date [...] blood pressure less than 140/90,Atherosclero sis of [place] coronary artery of [place] heart without angina pectoris,Primary hypertension TAKE ONE [...] as of this encounter (statuses as of 09/05/2022) Active Problems Problem Noted Date Current moderate episode of major depressive disorder without prior episode 04/07/2022 Food insecurity 08/01/2021 Overview: Per [facility] Protocol Hypertensive heart and kidne y 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[place] co ronary artery of [place] heart without angina pectoris Last Assessment & Plan: Stable no angina -continue rosuvastatin, metopropolol, Anxiety state Last Assessment & Plan: Stable on buspar, Primary hypertension Gastroesophageal reflux disease with eso phagitis without hemorrhage Last Assessment & Plan: symptoms controlled on pantoprazole Scoliosis of lumbar spine Mixed incontinence urge and stress (male )(female) documented as of this encounter (statuses as of 09/05/2022) Resolved Problems Problem Noted Date Resolved Date [...] as of this encounter (statuses as of 09/05/2022) Immunizations Name Administration Dates Next Due COVID-19 [...] encounter Miscellaneous Notes * Telephone Encounter - Mago Corrales [facility] Hand Spring Repairer Helper - 09/05/2022 2:32 PM EDT Registered [facility] Scale with following Parameters Requested Device(s): Scale Reference Weight: 155 Weight Parameters-the below ranges are suggested/default, please change as directed/needed: Range #1: Increase of 2 pounds in 1 day Range #2: Increase of 3 pounds in 2 days Range #3: Increase of 3 pounds in 3 days Range #4: Increase of 5 pounds in 5 days Range #5: Increase of 5 pounds in 10 days Other target range: NA Emailed [facility] to make sure they were aware that patient has been registered, patient should receive equipment in a few days TAM Reynoso Electronically signed by Mago Corrales [facility] Hand Spring Repairer Helper at 09/05/2022 2:34 PM EDT documented in this encounter Plan of Treatment Upcoming Encounters Date Type Specialty Care Team Description 10/04/2022 Office Visit Nephrology Tirso Shah MD [address] [place] [address] 10/13/2022 Telemedicine [facility] Anna Claudio CRNP [address] [place] [address] Ashley Castaneda [facility] Hand Spring Repairer Helper [address] [place] [address] [place] [address] 01/29/2023 Office Visit Family Medicine Con Coughlin MD [address] [place] [address] [place] [phone] Health Maintenance Due Date Last Done Comments DTaP,Tdap,and Td Vaccines (1 - Tdap) 11/15/1957 COVID-19 Vaccine (5 - Mixed Product series) 06/14/2020 04/19/2020, 04/04/2020, 03/22/2020, Additional history exists Depression Screening, Annual for Pts 12 and Over 09/29/2020 09/30/2019 CKD PHOS USE SMARTSET 51307 06/08/202205/21, 09/07/2020, 08/17/2020, Additional history exists Influenza Vaccine (FLU shot) (#1) 2022 01/10/2022, 11/18/2020, 12/06/2019, Additional history exists CKD HGB USE SMARTSET 55407 07/07/202307/06, 07/06/2022, 06/08/2021, Additional history exists Albumin/Creatinine [...] filedocumented as of this encounter Care Teams Corporation Secretary Relationship Specialty Start Date End Date Con Coughlin MD [address] [place] [address] [place] [phone] PCP - General Family Medicine 06/30/14 documented as of this encounter
--- OUTSIDE RECORDS SUMMARY | 2023-01-29 20:13 | External Medical Summary | Summary of Care ---
Author Name Unknown Organization [facility] Address [address] [place] [address] Phone [phone] Care Team Providers Care Principal Associate Name Role Phone Con Coughlin MD Primary Care Provider [phone] Reason for Visit * Reason Comments [facility]: Acute Encounter Details Date Type Department Care Team Description 09/02/2022 Home Visit [facility], [facility] [address] [place] [address] [facility], Nurse [facility] [address] [place] [address] Allergies Active Allergy Reactions Severity Noted Date Comments Ergotamine 03/01/2000 vomit Nitroglycerin 03/14/2007 vomitting documented as of this encounter (statuses as of 09/02/2022) Medications Medication Sig Dispensed Refills Start Date [...] 06/06/2021 Active Torsemide 20 MG Oral Tablet (Demadex)Indicatio [...] blood pressure less than 140/90,Atheroscler osis of [place] coronary artery of [place] heart without angina pectoris,Primary hypertension TAKE ONE [...] Active Diphenoxylate-Atro pine 2.5-0.025 MG Oral Tablet (Lomotil) Take by [...] 1 Tablet before bedtime. 0 08/25/2022 Active Eliquis 2.5 MG Oral Tablet (Apixaban)Indicati ons:Chronic atrial fibrillation (HCC) TAKE ONE TABLET BY MOUTH TWICE DAILY 180 Tablet 1 05/04/2022 3 Discontinue d(Medicatio n/Dose Changed) documented as of this encounter (statuses as of 09/02/2022) Active Problems Problem Noted Date Current moderate episode of major depressive disorder without prior episode 04/07/2022 Food insecurity 08/01/2021 Overview: Per [facility] Protocol Hypertensive heart and kidne y [...] discuss her pain concerns. She is aware [facility] does not manage chronic pain 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[place] co ronary artery of [place] heart without angina pectoris Last Assessment & Plan: Stable no angina -continue rosuvastatin, metopropolol, Anxiety state Last Assessment & Plan: Stable on buspar, Primary hypertension Gastroesophageal reflux disease with eso phagitis without hemorrhage Last Assessment & Plan: symptoms controlled on pantoprazole Scoliosis of lumbar spine Mixed incontinence urge and stress (male )(female) documented as of this encounter (statuses as of 09/02/2022) Resolved Problems Problem Noted Date Resolved Date [...] as of this encounter (statuses as of 09/02/2022) Immunizations Name Administration Dates Next Due COVID-19 [...] Sign Reading Time Taken Comments Blood Pressure 118/60 09/02/2022 5:56 PM EDT Pulse 76 09/02/2022 5:56 PM EDT Temperature 36.7 C (98.1 F) 09/02/2022 5:56 PM ED T Respiratory Rate 20 09/02/2022 5:56 PM EDT Oxygen Saturation 99% 09/02/2022 5:56 PM EDT RA Inhaled Oxygen Concentration - - Weight 72.6 kg (160 lb) 09/02/2022 5:56 PM EDT Height - - Body Mass Index 30.23 07/06/2022 1:08 PM EDT documented in this encounter Progress Notes * Maia Yao RN - 09/02/2022 5:52 PM EDT [facility] Seam StayerGlass Blowing Lathe Operator Visit Date: 09/02/2022 Time: 5:52 PM Name: Zoya Howard : 1938 Situation: Pt being seen for acute home visit for c/o sob. Background: Patient called into [facility] yesterday feeling increased sob, wt gain, and feeling like her heart rate was irregular. Admits to not taking her torsemide as ordered. Assessment: Patient states that she took her torsemide yesterday and is feeling better today. Patient states that she was going to call and cancel the visit due to feeling better. Asked to cancel when RN called on her way, but was agreeable to keep the visit after some encouragement. Wt this morning was 160 lbs which is what it has been for the last week or so. Pt states that she has skipped several days of torsemide due to incontinence and urinary frequency resulting from diuretic. Patient states she has gained 30 lbs in a couple of months, but per EMR, pt's weight only up 4 lbs. Pt does not appear to have gained that volume either. No acute distress. Wt Readings from Last 8 Encounters: 09/02/22 72.6 kg (160 lb) 07/27/22 71 kg (156 lb 8 oz) 07/06/22 71.2 kg (157 lb) 06/15/22 73.8 kg (162 lb 11.2 oz) 05/19/22 68.9 kg (152 lb) 05/05/22 68.9 kg (151 lb 14.4 oz) 03/20/22 68.9 kg (152 lb) 03/16/22 70.9 kg (156 lb 4.9 oz) Lungs with few faint crackles in LLL. Vitals wnl Reinforced importance of taking her torsemide and all medication as ordered and risk of not taking torsemide being worsening fluid retention, hospitalization, possibly even if condition is severe. Pt agreeable to restart torsemide and take as ordered. Has DTP on file. Recommendation: Resume torsemide as ordered DTP per order Continue daily wts Order [facility] scale Daily phone calls x 3 May need additional visit if symptoms don't improve with resumption of torsemide/DTP Problems/Symptoms: Review of Systems Constitutional: Negative for chills and fever. Respiratory: Positive for shortness of breath. Negative for cough and wheezing. Cardiovascular: Positive for leg swelling. Negative for chest pain and palpitations. Gastrointestinal: Negative for abdominal distention. Genitourinary: Negative for decreased urine volume, difficulty urinating and dysuria. Musculoskeletal: Positive for arthralgias. Neurological: Negative for dizziness and light-headedness. Physical Exam: Physical Exam Cardiovascular: Rate and Rhythm: Normal rate. Pulses: Normal pulses. Pulmonary: Effort: Pulmonary effort is normal. Breath sounds: Rales (LLL) present. Musculoskeletal: Right lower leg: Edema present. Left lower leg: Edema present. Comments: Non pitting edema of feet, ankles Neurological: Mental Status: She is alert and oriented to person, place, and time. [facility] Completed this Visit: No. No falls since last visit Home Interventions Provided: Oral Medications: Diuretic Titration Protocol Started Reinforced current Plan of Care, including self-management and medication regimen Referrals Needed: HIRAL Yao RN 09/02/2022 5:52 PM documented in this encounter Plan of Treatment Upcoming Encounters Date Type Specialty Care Team Description 09/03/2022 Scheduled Telephone [facility], Nurse [facility] [address] [place] [address] 09/04/2022 Home Visit [facility] Maia Yao RN [address] [facility] [place] [address] 10/04/2022 Office Visit Nephrology Tirso Shah MD [address] [place] [address] 10/13/2022 Telemedicine [facility] Anna Claudio CRNP [address] [facility] [place] [address] Ashley Castaneda Community Health Director [employer] Communications [address] [place] [address] [place] [address] 01/29/2023 Office Visit Family Medicine Con Coughlin MD [address] [place] [address] [place] [address] Health Maintenance Due Date Last Done Comments DTaP,Tdap,and Td Vaccines (1 - Tdap) 11/15/1957 COVID-19 Vaccine (5 - Mixed Product series) 06/14/2020 04/19/2020, 04/04/2020, 03/22/2020, Additional history exists Depression Screening, Annual for Pts 12 and Over 09/29/2020 09/30/2019 CKD PHOS USE SMARTSET 43108 06/08/202205/21, 09/07/2020, 08/17/2020, Additional history exists Influenza Vaccine (FLU shot) (#1) 2022 01/10/2022, 11/18/2020, 12/06/2019, Additional history exists CKD HGB USE SMARTSET 15851 07/07/202307/06, 07/06/2022, 06/08/2021, Additional history exists Albumin/Creatinine [...] filedocumented as of this encounter Care Teams Principal Associate Relationship Specialty Start Date End Date Con Coughlin MD [address] [place] [address] [place] [address] PCP - General Family Medicine 06/30/14 documented as of this encounter
--- OUTSIDE RECORDS SUMMARY | 2023-01-29 20:13 | External Medical Summary | Summary of Care ---
Author Name Unknown Organization [facility] Address [address] [place] [address] Phone [phone] Care Team Providers Care Rn Private Duty Name Role Phone Con Coughlin MD Primary Care Provider [phone] Reason for Visit * Reason Onset Date Comments Appointment 09/06/2022 Encounter Details Date Type Department Care Team Description 09/06/2022 Telephone [facility], [facility] [address] [place] [address] [phone] Services, Scheduling [address] [place] [address] Appointment (//) Allergies Active Allergy Reactions Severity Noted Date Comments Ergotamine 03/01/2000 vomit Nitroglycerin 03/14/2007 vomitting documented as of this encounter (statuses as of 09/06/2022) Medications Medication Sig Dispensed Refills Start Date [...] blood pressure less than 140/90,Atherosclero sis of [place] coronary artery of [place] heart without angina pectoris,Primary hypertension TAKE ONE [...] as of this encounter (statuses as of 09/06/2022) Active Problems Problem Noted Date Current moderate episode of major depressive disorder without prior episode 04/07/2022 Food insecurity 08/01/2021 Overview: Per [facility] Protocol Hypertensive heart and kidne [...] discuss her pain concerns. She is aware [facility] does not manage chronic pain 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[place] co ronary artery of [place] heart without angina pectoris Last Assessment & Plan: Stable no angina -continue rosuvastatin, metopropolol, Anxiety state Last Assessment & Plan: Stable on buspar, Primary hypertension Gastroesophageal reflux disease with eso phagitis without hemorrhage Last Assessment & Plan: symptoms controlled on pantoprazole Scoliosis of lumbar spine Mixed incontinence urge and stress (male )(female) documented as of this encounter (statuses as of 09/06/2022) Resolved Problems Problem Noted Date Resolved Date [...] as of this encounter (statuses as of 09/06/2022) Immunizations Name Administration Dates Next Due COVID-19 [...] Miscellaneous Notes * Telephone Encounter - TAM Balbuena - 09/06/2022 11:27 AM EDT Request to change appt on 10/13@130 I found 10/24@430 and called and Sunilarcadio was agreeable to the change documented in this encounter Plan of Treatment Upcoming Encounters Date Type Specialty Care Team Description 10/04/2022 Office Visit Nephrology [facility]so Shah [facility] [address] [facility] [address] 10/24/2022 [facility]icine [facility] Anna Claudio CRNP [address] [place] [address] Ashley Castaneda Community Health Loan Analyst [address] [place] [address] [place] [address] 01/29/2023 Office Visit Family Medicine Con Coughlin MD [address] [place] [address] [place] [address] Health Maintenance Due Date Last Done Comments DTaP,Tdap,and Td Vaccines (1 - Tdap) 11/15/1957 COVID-19 Vaccine (5 - Mixed Product series) 06/14/2020 04/19/2020, 04/04/2020, 03/22/2020, Additional history exists Depression Screening, Annual for Pts 12 and Over 09/29/2020 09/30/2019 CKD PHOS USE SMARTSET 26360 06/08/20222 , 09/07/2020, 08/17/2020, Additional history exists Influenza Vaccine (FLU shot) (#1) 2022 01/10/2022, 11/18/2020, 12/06/2019, Additional history exists CKD HGB USE SMARTSET 50226 07/07/202307/06, 07/06/2022, 06/08/2021, Additional history exists Albumin/Creatinine [...] filedocumented as of this encounter Care Teams Rn Private Duty Relationship Specialty Start Date End Date Con Coughlin MD [address] [place] [address] [place] [address] PCP - General Family Medicine 06/30/14 documented as of this encounter
--- OUTSIDE RECORDS SUMMARY | 2023-01-29 20:13 | External Medical Summary | Summary of Care ---
Author Name Unknown Organization [facility] Address [address] [place] [facility] [place] [address] Phone [phone] Care Team Providers Care Sheriff Deputy Name Role Phone Con Coughlin MD Primary Care Provider Reason for Visit * Reason Onset Date Comments [facility]: Maintenance 09/05/2022 Encounter Details Date Type Department Care Team Description 09/05/2022 Scheduled Telephone [facility], [facility] [address] [place] [address] Maia Yao RN [address] [place] [address] Allergies Active Allergy Reactions Severity Noted Date [...] episode 04/07/2022 Food insecurity 08/01/2021 Overview: Per [facility] Protocol Hypertensive heart and kidne y [...] pain concerns. She is aware [facility] does not manage chronic pain meds. With her history of confusion, would recommend against use of narcotic medication. Mild aortic stenosis 07/27/2021 Last Assessment & Plan: Following with cardiology Aortocoronary bypass status 03/09/2021 Chronic atrial fibrillation 03/01/2021 Overview: new onset, [facility] on apixaban Last Assessment & [...] ulcer 06/30/2014 06/26/2017 Overview: hgb 7.4 admitted [facility] CKD (chronic kidney disease) stage [...] Telephone Encounter - Maia Yao RN - 09/06/2022 11:36 AM EDT [facility]. Left VM requesting patient to call back with update. Will try to contact tomorrow. documented in this encounter Plan of Treatment Upcoming Encounters Date Type Specialty Care Team Description 10/04/2022 Office Visit Nephrology Tirso Shah MD [address] [place] [address] 10/24/2022 Telemedicine [facility] Anna Claudio CRNP [address] [facility] [place] [address] Ashley Castaneda Community Health Well Logging Operator Mud [employer] [address] [place] [address] [place] [address] 01/29/2023 Office Visit Family Medicine Con Coughlin MD [address] [place] [address] [place] [address] Health Maintenance Due Date Last Done Comments DTaP,Tdap,and Td Vaccines (1 - Tdap) 11/15/1957 COVID-19 Vaccine (5 - Mixed Product series) 06/14/2020 04/19/2020, 04/04/2020, 03/22/2020, Additional history exists Depression Screening, Annual for Pts 12 and Over 09/29/2020 09/30/2019 CKD PHOS USE SMARTSET 95978 06/08/202205/21, 09/07/2020, 08/17/2020, Additional history exists Influenza Vaccine (FLU shot) (#1) 2022 01/10/2022, 11/18/2020, 12/06/2019, Additional history exists CKD HGB USE SMARTSET 01204 07/07/202307/06, 07/06/2022, 06/08/2021, Additional history exists Albumin/Creatinine [...] filedocumented as of this encounter Care Teams Sheriff Deputy Relationship Specialty Start Date End Date Con Coughlin MD [address] [place] [address] [place] [address] PCP - General Family Medicine 06/30/14 documented as of this encounter
--- OUTSIDE RECORDS SUMMARY | 2023-01-29 20:13 | External Medical Summary | Summary of Care ---
Author Name Unknown Organization [facility] Address [address] [place] [address] Phone [phone] Care Team Providers Care Recording Artist Name Role Phone Con Coughlin MD Primary Care Provider Encounter Details Date Type Department Care Team Description 09/01/2022 Telephone [facility] [address] [place] [address] Marla Tan MD [address] [place] [address] [place] [address] Allergies Active Allergy Reactions Severity Noted Date [...] blood pressure less than 140/90,Atherosclero sis of [place] coronary artery of [place] heart without angina pectoris,Primary hypertension TAKE ONE [...] TWICE DAILY 60 Capsule 5 08/28/2022 Active documented as of this encounter (statuses as of 09/04/2022) Active Problems Problem Noted Date Current moderate episode of major depressive disorder without prior episode 04/07/2022 Food insecurity 08/01/2021 Overview: Per [facility] Protocol Hypertensive heart and kidne y 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[place] co ronary artery of [place] heart without angina pectoris Last Assessment & [...] encounter Miscellaneous Notes * Telephone Encounter - Marla Michel MD - 09/01/2022 4:26 PM EDT Agree with recommendation for evaluation today. If [facility] unable to see her, recommend ER. * Telephone Encounter - Marla Michel MD - 09/01/2022 4:26 PM EDT ----- Message from Mee Tee LPN sent at 09/01/2022 3:49 PM EDT ----- ----- Message from Grace Esparza RN sent at 09/01/2022 1:41 PM EDT ----- Please see cafeteria attendant note and advise patient. Patient would like to be seen by [facility] today. documented in this encounter Plan of Treatment Upcoming Encounters Date Type Specialty Care Team Description 09/05/2022 Scheduled Telephone [facility] Maia Yao RN [address] [place] [address] 10/04/2022 Office Visit Nephrology Tirso Shah MD [address] [place] [address], [place] [id number] 10/13/2022 Telemedicine [facility] Anna Claudio CRNP [address] [place] [address] Ashley Castaneda, Community Health Handicapper [employer] [address] [place] [address] [place] [address] 01/29/2023 Office Visit Family Medicine Con Coughlin MD [address] [place] [address] [place] [address] Health Maintenance Due Date Last Done Comments DTaP,Tdap,and Td Vaccines (1 - Tdap) 11/15/1957 COVID-19 Vaccine (5 - Mixed Product series) 06/14/2020 04/19/2020, 04/04/2020, 03/22/2020, Additional history exists Depression Screening, Annual for Pts 12 and Over 09/29/2020 09/30/2019 CKD PHOS USE SMARTSET 71145 06/08/202205/21, 09/07/2020, 08/17/2020, Additional history exists Influenza Vaccine (FLU shot) (#1) 2022 01/10/2022, 11/18/2020, 12/06/2019, Additional history exists CKD HGB USE SMARTSET 19817 07/07/202307/06, 07/06/2022, 06/08/2021, Additional history exists Albumin/Creatinine [...] filedocumented as of this encounter Care Teams Recording Artist Relationship Specialty Start Date End Date Con Coughlin MD [address] [place] [address] [place] [address] PCP - General Family Medicine 06/30/14 documented as of this encounter
--- OUTSIDE RECORDS SUMMARY | 2023-01-29 20:13 | External Medical Summary | Summary of Care ---
Author Name Unknown Organization [facility] Address [address] [place] [address] Phone [phone] Care Team Providers Care Fiberglass Boat Builder Name Role Phone Con Coughlin MD Primary Care Provider Encounter Details Date Type Department Care Team Description 09/04/2022 [facility] Visit [facility] [place] [address] Maia Yao RN [address] [place] [address] Hypertensive heart and kidney disease with chronic diastolic congestive heart failure and stage 3b chronic kidney disease (HCC)* Allergies Active Allergy Reactions Severity Noted Date [...] blood pressure less than 140/90,Atherosclero sis of [place] coronary artery of [place] heart without angina pectoris,Primary hypertension TAKE ONE [...] episode 04/07/2022 Food insecurity 08/01/2021 Overview: Per [facility] Protocol Hypertensive heart and kidne y [...] discuss her pain concerns. She is aware [facility] does not manage chronic pain meds. 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[place] co ronary artery of [place] heart without angina pectoris Last Assessment & [...] Sign Reading Time Taken Comments Blood Pressure 110/60 09/04/2022 3:42 PM EDT Pulse 76 09/04/2022 3:42 PM EDT Temperature 36.7 C (98.1 F) 09/04/2022 3:42 PM ED T Respiratory Rate 20 09/04/2022 3:42 PM EDT Oxygen Saturation 99% 09/04/2022 3:42 PM EDT RA Inhaled Oxygen Concentration - - Weight 72.1 kg (159 lb) 09/04/2022 3:42 PM EDT Height - - Body Mass Index 30.04 07/06/2022 1:08 PM EDT documented in this encounter Progress Notes * Maia Yao RN - 09/04/2022 3:35 PM EDT [facility] Forestry ScientistMeteorologist In Charge Visit Date: 09/04/2022 Time: 3:35 PM Name: Zoya Howard : 1938 Situation: Patient being seen for follow up [...] is improved but not back to baseline. Discussed with [facility]-Dr Morillo. Will extend DTP with daily phone calls to assess response and manage conservatively due to CKD. Pt instructed on taking additional torsemide tomorrow 4 hours after am dose. Pt verbalizes understanding and able to repeat back instructions correctly. Recommendation: Message to [facility] for additional recommendations for fluid overload. Pt to continue additional 20mg of Torsemide in afternoon, at least 4 hours after first dose until back to baseline. Daily phone calls Enroll in [facility] HF scale Reinforced low sodium diet Daily wts Elevate legs when sitting DO NOT STOP ANY MEDICATIONS WITHOUT TALKING TO DOCTOR!! Problems/Symptoms: Review of Systems Constitutional: Negative for chills and fever. Respiratory: Positive for shortness of breath. Cardiovascular: Positive for leg swelling. Gastrointestinal: Negative. Genitourinary: Negative for difficulty urinating and dysuria. Skin: Negative. Neurological: Negative for dizziness and light-headedness. Physical Exam: Physical Exam Cardiovascular: Rate and Rhythm: Normal rate. Pulses: Normal pulses. Pulmonary: Effort: Pulmonary effort is normal. Breath sounds: Rales (LLL) present. Abdominal: General: Bowel sounds are normal. Palpations: Abdomen is soft. Musculoskeletal: Right lower leg: Edema present. Left lower leg: Edema present. Skin: General: Skin is warm and dry. Neurological: Mental Status: She is alert and oriented to person, place, and time. [facility] Completed this Visit: No. Routine visit and No falls since last visit Home Interventions Provided: Oral Medications: Diuretic Titration Protocol Started-extended Consulted PCP/Specialist Reinforced current Plan of Care, including self-management and medication regimen Referrals Needed: Other BRUSH SANDER for [facility] scale Maia Yao RN 09/04/2022 3:35 PM documented in this encounter Plan of Treatment Upcoming Encounters Date Type Specialty Care Team Description 09/05/2022 Scheduled Telephone [facility] Maia Yao RN [address] [place] [address] [place] [address] 10/04/2022 Office Visit Nephrology Tirso Shah MD [address] [place] [address] 10/13/2022 Telemedicine [facility] Anna Claudio CRNP [address] [place] [address] Ashley Castaneda Community Health Doughnut Batter Mixer [address] [place] [address] [place] [address] 01/29/2023 Office Visit Family Medicine Con Coughlin MD [address] [facility] [place] [address] Health Maintenance Due Date Last Done Comments DTaP,Tdap,and Td Vaccines (1 - Tdap) 11/15/1957 COVID-19 Vaccine (5 - Mixed Product series) 06/14/2020 04/19/2020, 04/04/2020, 03/22/2020, Additional history exists Depression Screening, Annual for Pts 12 and Over 09/29/2020 09/30/2019 CKD PHOS USE SMARTSET 17140 06/08/202205/21, 09/07/2020, 08/17/2020, Additional history exists Influenza Vaccine (FLU shot) (#1) 2022 01/10/2022, 11/18/2020, 12/06/2019, Additional history exists CKD HGB USE SMARTSET 57295 07/07/202307/06, 07/06/2022, 06/08/2021, Additional history exists Albumin/Creatinine [...] Primary documented in this encounter Care Teams Fiberglass Boat Builder Relationship Specialty Start Date End Date Con Coughlin MD [address] [place] [address] [place] [address] PCP - General Family Medicine 06/30/14 documented as of this encounter
--- OUTSIDE RECORDS SUMMARY | 2023-01-29 20:13 | External Medical Summary | Summary of Care ---
Author Name Unknown Organization [facility] Address [address] [place] [address] Phone [phone] Care Team Providers Care Aircraft Instrument Repairer Name Role Phone Con Garcia MD Primary Care Provider Reason for Visit * Reason Comments eRx-Medication Refill Encounter Details Date Type Department Care Team Description 08/25/2022 Refill Family Medicine [address] [address] Delmer Valles MD [address] [place] [address] [place] [address] DDD (degenerative disc disease), lumbar Allergies Active Allergy Reactions Severity Noted Date Comments Ergotamine 03/01/2000 vomit Nitroglycerin 03/14/2007 vomitting documented as of this encounter (statuses as of 08/28/2022) Medications Medication Sig Dispensed Refills Start Date [...] TWICE DAILY 60 Tablet 5 04/05/2022 Active Eliquis 2.5 MG Oral Tablet (Apixaban)Indicat ions:Chronic atrial fibrillation (HCC) TAKE ONE TABLET BY MOUTH TWICE DAILY 180 Tablet 1 05/04/2022 Active Levothyroxine Sodium 100 MCG Oral Tablet (Levoxyl) TAKE ONE TABLET BY MOUTH EVERY DAY 90 Tablet 1 05/31/2022 Active Metoprolol Succinate ER 25 MG Oral Tablet Extended Release 24 Hour (toPROL XL)Indications:Es sential hypertension with goal blood pressure less than 140/90,Atheroscle rosis of [place] coronary artery [place] heart without angina pectoris,Primary hypertension TAKE ONE [...] TWICE DAILY 60 Capsule 5 08/28/2022 Active Gabapentin 300 MG Oral Capsule (Neurontin)Indica tions:DDD (degenerative disc disease), lumbar Take 1 Capsule by mouth in the morning and 1 Capsule before bedtime. 60 Capsule 1 06/29/2022 08/29/19 23 Discontinued documented as of this encounter (statuses as of 08/28/2022) Active Problems Problem Noted Date Current moderate episode of major depressive disorder without prior episode 04/07/2022 Food insecurity 08/01/2021 Overview: Per [facility] Protocol Hypertensive heart and kidne [...] her pain concerns. She is aware [facility] does not manage chronic pain meds. With her history of confusion, would recommend against use of narcotic medication. Mild aortic stenosis 07/27/2021 Last Assessment & Plan: Following with cardiology Aortocoronary bypass status 03/09/2021 Chronic atrial fibrillation 03/01/2021 Overview: new onset, [facility] on apixaban Last Assessment & Plan: Rate 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[place] co ronary artery of [place] heart without angina pectoris Last Assessment & Plan: Stable no angina -continue rosuvastatin, metopropolol, Anxiety state Last Assessment & Plan: Stable on buspar, Primary hypertension Gastroesophageal reflux disease with eso phagitis without hemorrhage Last Assessment & Plan: symptoms controlled on pantoprazole Scoliosis of lumbar spine Mixed incontinence urge and stress (male )(female) documented as of this encounter (statuses as of 08/28/2022) Resolved Problems Problem Noted Date Resolved Date [...] hgb 7.4 admitted [facility] CKD (chronic kidney disease) stage 3, GFR [...] as of this encounter (statuses as of 08/28/2022) Immunizations Name Administration Dates Next Due COVID-19 [...] Telephone Encounter - Con Garcia MD - 08/28/2022 8:01 AM EDTSigned Prescriptions: Disp Refills Gabapentin 300 MG Oral Capsule (Neurontin) 60 Cap*5 Sig: TAKE ONE CAPSULE BY MOUTH TWICE DAILY Authorizing Provider: CON GARCIA Refused Prescriptions: Disp Refills Nabumetone 500 MG Oral Tablet (Relafen) 60 Tab*1 Sig: TAKE ONE TABLET BY MOUTH TWICE DAILY Refused By: JENNIFER JIMÉNEZ Reason for Ref usal: Course of treatment complete * Telephone Encounter - Jennifer Jiménez RPh - 08/27/2022 9:08 AM EDTPending Prescriptions: Disp Refills Gabapentin 300 MG Oral Capsule (Neurontin) 60 Cap*5 Sig: TAKE ONE CAPSULE BY MOUTH TWICE DAILYRefused Prescriptions: Disp Refills Nabumetone 500 MG Oral Tablet (Relafen) 60 Tab*1 Sig: TAKE ONE TABLET BY MOUTH TWICE DAILYRefused By: JENNIFER JIMÉNEZ for Refusal: Course of treatment complete documented in this encounter Plan of Treatment Upcoming Encounters Date Type Specialty Care Team Description 09/04/2022 Home Visit [facility] Maia Yao RN [address] [place] [id number] 10/04/2022 Office Visit Nephrology Tirso Shah MD [address] [place] [address] 10/13/2022 Telemedicine [facility] Anna Claudio CRNP [address] [place] [address] Ashley Castaneda Community Health Corrective And Manual Arts Therapist [address] [place] [address] [place] [address] 01/29/2023 Office Visit Family Medicine Con Garcia MD [address] [place] [address] [place] [address] Health Maintenance Due Date Last Done Comments DTaP,Tdap,and Td Vaccines (1 - Tdap) 11/15/1957 COVID-19 Vaccine (5 - Mixed Product series) 06/14/2020 04/19/2020, 04/04/2020, 03/22/2020, Additional history exists Depression Screening, Annual for Pts 12 and Over 09/29/2020 09/30/2019 CKD PHOS USE SMARTSET 43076 06/08/2022 04/, 09/07/2020, 08/17/2020, Additional history exists Influenza Vaccine (FLU shot) (#1) 2022 01/10/2022, 11/18/2020, 12/06/2019, Additional history exists CKD HGB USE SMARTSET 30281 07/07/202307/06, 07/06/2022, 06/08/2021, Additional history exists Albumin/Creatinine [...] as of this encounter Visit Diagnoses Diagnosis DDD (degenerative disc disease), lumbar Degeneration of lumbar or lumbosacral intervertebral disc documented in this encounter Care Teams Aircraft Instrument Repairer Relationship Specialty Start Date End Date Con Garcia MD [address] [place] [address] [place] [address] PCP - General Family Medicine 06/30/14 documented as of this encounter
--- OUTSIDE RECORDS SUMMARY | 2023-01-29 20:13 | External Medical Summary | Summary of Care ---
Author Name Unknown Organization [facility] Address [address] [place] [address] Phone [phone] Care Team Providers Care Air Grinder Name Role Phone Con Coughlin MD Primary Care Provider Reason for Visit * Reason Onset Date Comments [facility]: Maintenance 09/06/2022 Encounter Details Date Type Department Care Team Description 09/06/2022 Scheduled Telephone [facility], [facility] [address] [place] [address] Maia Yao RN [address] [place] [address] Allergies Active Allergy Reactions Severity Noted Date [...] blood pressure less than 140/90,Atherosclero sis of [place] coronary artery of [place] heart without angina pectoris,Primary hypertension TAKE ONE [...] episode 04/07/2022 Food insecurity 08/01/2021 Overview: Per [facility] Protocol Hypertensive heart and kidne y [...] discuss her pain concerns. She is aware [facility] does not manage chronic pain 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[place] co ronary artery of [place] heart without angina pectoris Last Assessment & [...] Encounter - Maia Yao RN - 09/06/2022 12:02 PM EDT Follow up call to patient regarding fluid retention, wt gain. Pt seen for increased weight gain, med non compliance on 09/04. Wt 159 lbs. Pt per provider instruction was to continue DTP taking an additional torsemide tablet in the afternoon, 4 hours after am dose. [facility] pt yesterday. Today, spoke with patient. States that wt 157-158 lbs. "I feel great". Took additional torsemide already today. Instructed to return to torsemide 20 mg, usual dose of one tablet daily starting tomorrow per provider recommendation. Pt to call [facility] if wt increase more than 2 lbs. [facility] scale ordered previously. Will follow up with call next week to see how she is doing and if she got her scale. documented in this encounter Plan of Treatment Upcoming Encounters Date Type Specialty Care Team Description 09/13/2022 Scheduled Telephone [facility] Maia Yao RN [address] [place] [id number] 10/04/2022 Office Visit Nephrology Tirso Shah MD [address] [facility] [place] [address] 10/24/2022 Telemedicine [facility] Anna Claudio CRNP [address] [place] [address] Ashley Castaneda, Community Health Counter Control Operator [address] [place] [address] [place] [address] 01/29/2023 Office Visit Family Medicine Con Coughlin MD [address] [place] [address] [place] [address] Health Maintenance Due Date Last Done Comments DTaP,Tdap,and Td Vaccines (1 - Tdap) 11/15/1957 COVID-19 Vaccine (5 - Mixed Product series) 06/14/2020 04/19/2020, 04/04/2020, 03/22/2020, Additional history exists Depression Screening, Annual for Pts 12 and Over 09/29/2020 09/30/2019 CKD PHOS USE SMARTSET 89055 06/08/202205/21, 09/07/2020, 08/17/2020, Additional history exists Influenza Vaccine (FLU shot) (#1) 2022 01/10/2022, 11/18/2020, 12/06/2019, Additional history exists CKD HGB USE SMARTSET 05424 07/07/202307/06, 07/06/2022, 06/08/2021, Additional history exists Albumin/Creatinine [...] as of this encounter Care Teams Air Grinder Relationship Specialty Start Date End Date Con Coughlin MD [address] [place] [address] [place] [address] PCP - General Family Medicine 06/30/14 documented as of this encounter
--- OUTSIDE RECORDS SUMMARY | 2023-01-29 20:13 | External Medical Summary | Summary of Care ---
Author Name Unknown Organization [facility] Address [address] [place] [address] Phone [phone] Care Team Providers Care Fuels Engineer Name Role Phone Con Coughlin MD Primary Care Provider Reason for Visit * Reason Onset Date Comments [facility]: Maintenance 08/11/2022 Encounter Details Date Type Department Care Team Description 08/11/2022 Telephone [facility], [address] [address] Services, Scheduling [address] [place] [address] [facility]: Maintenance Allergies Active Allergy Reactions Severity Noted Date Comments Ergotamine 03/01/2000 vomit Nitroglycerin 03/14/2007 vomitting documented as of this encounter (statuses as of 08/11/2022) Medications Medication Sig Dispensed Refills Start Date [...] 04/05/2022 Active Eliquis 2.5 MG Oral Tablet (Apixaban)Indicatio ns:Chronic atrial fibrillation (HCC) TAKE ONE TABLET BY MOUTH TWICE DAILY 180 Tablet 1 05/04/2022 Active Levothyroxine Sodium 100 MCG Oral Tablet (Levoxyl) TAKE ONE TABLET BY MOUTH EVERY DAY 90 Tablet 1 05/31/2022 Active Metoprolol Succinate ER 25 MG Oral Tablet Extended Release 24 Hour (toPROL XL)Indications:Esse ntial hypertension with goal blood pressure less than 140/90,Atherosclero sis of [place] coronary artery of [place] heart without angina pectoris,Primary hypertension TAKE ONE [...] times a day as needed 60 Tablet 06/21/2022 Active Gabapentin 300 MG Oral Capsule (Neurontin)Indicati ons:DDD (degenerative disc disease), lumbar Take 1 Capsule by mouth in the morning and 1 Capsule before bedtime. 60 Capsule 06/29/2022 Active Torsemide 20 MG Oral Tablet (Demadex) Take 1 Tablet by mouth in the morning. 30 Tablet 06/29/2022 Active Zolpidem Tartrate 5 MG Oral [...] by mouth in the morning. 0 Active documented as of this encounter (statuses as of 08/11/2022) Active Problems Problem Noted Date Current moderate episode of major depressive disorder without prior episode 04/07/2022 Food insecurity 08/01/2021 Overview: Per [facility] Protocol Hypertensive heart and kidne 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[place] co ronary artery of [place] heart without angina pectoris Last Assessment & Plan: Stable no angina -continue rosuvastatin, metopropolol, Anxiety state Last Assessment & Plan: Stable on buspar, Primary hypertension Gastroesophageal reflux disease with eso phagitis without hemorrhage Last Assessment & Plan: symptoms controlled on pantoprazole Scoliosis of lumbar spine Mixed incontinence urge and stress (male )(female) documented as of this encounter (statuses as of 08/11/2022) Resolved Problems Problem Noted Date Resolved Date [...] as of this encounter (statuses as of 08/11/2022) Immunizations Name Administration Dates Next Due COVID-19 [...] * Telephone Encounter - TAM Foster - 08/11/2022 3:42 PM EDT Patient is scheduled for 10/13/22 at 130pm with KARELY Castaneda/TAM Mason documented in this encounter Plan of Treatment Upcoming Encounters Date Type Specialty Care Team Description 09/04/2022 Home Visit [facility] Maia Yao RN [address] [place] [address] 10/04/2022 Office Visit Nephrology Tirso Shah MD [address] [place] [address] 10/13/2022 Telemedicine [facility] Anna Claudio CRNP [address] [place] [address] Ashley Castaneda Community Health Golf Ball Trimmer [address] [place] [address] [place] [address] 01/29/2023 Office Visit Family Medicine Con Coughlin MD [address] [place] [address] [place] [address] Health Maintenance Due Date Last Done Comments DTaP,Tdap,and Td Vaccines (1 - Tdap) 11/15/1957 COVID-19 Vaccine (5 - Mixed Product series) 06/14/2020 04/19/2020, 04/04/2020, 03/22/2020, Additional history exists Depression Screening, Annual for Pts 12 and Over 09/29/2020 09/30/2019 CKD PHOS USE SMARTSET 10663 06/08/202205/21, 09/07/2020, 08/17/2020, Additional history exists CKD HGB USE SMARTSET 35369 07/07/202307/06, 07/06/2022, 06/08/2021, Additional history exists Albumin/Creatinine Ratio 07/28/2023 023, 06/09/2020, 03/13/2019, Additional history exists TSH 07/28/2023 07/27/2022, 05/21, 06/09/2020, Additional history exists Pneumococcal Vaccine: 65+ Years Completed 08/26/2014, 10/26/2005 Zoster Vaccines Completed 11/23/2020, 12/04/2019 Influenza Vaccine (FLU shot) Completed , 11/18/2020, 12/06/2019, Additional history exists GARDASIL-HPV IMMUNIZATION SERIES Aged Out No longer eligible based on patient's age to complete this topic Hepatitis B Aged Out No longer eligi ble based on patient's age to complete this topic MENINGOCOCCAL (MENACTRA/MENVEO) Aged Out No longer eligible based on patient's age to complete this topic documented as of this encounter Medical Devices Not on filedocumented as of this encounter Care Teams Fuels Engineer Relationship Specialty Start Date End Date Con Coughlin MD [address] [place] [address] [place] [address] PCP - General Family Medicine 06/30/14 documented as of this encounter
--- OUTSIDE RECORDS SUMMARY | 2023-01-29 20:13 | External Medical Summary | Summary of Care ---
Author Name Unknown Organization [facility] Address [address] [place] [facility] [place] [address] Phone [phone] Care Team Providers Care Director Of Housing Name Role Phone Con Coughlin MD Primary Care Provider [phone] Reason for Visit * Reason Onset Date Comments [facility]: Acute 09/01/2022 Encounter Details Date Type Department Care Team Description 09/01/2022 Telephone [facility], [facility] [address] [facility] [place] [address] [facility], Nurse [facility] [address] [facility] [place] [address] [facility]: Acute Allergies Active Allergy Reactions Severity Noted Date Comments Ergotamine 03/01/2000 vomit Nitroglycerin 03/14/2007 vomitting documented as of this encounter (statuses as of 09/01/2022) Medications Medication Sig Dispensed Refills Start Date [...] blood pressure less than 140/90,Atherosclero sis of [place] coronary artery of [place] heart without angina pectoris,Primary hypertension TAKE ONE [...] as of this encounter (statuses as of 09/01/2022) Active Problems Problem Noted Date Current moderate episode of major depressive disorder without prior episode 04/07/2022 Food insecurity 08/01/2021 Overview: Per [facility] Protocol Hypertensive heart and kidne [...] discuss her pain concerns. She is aware [facility] does not manage chronic pain meds. With her history of confusion, would recommend against use of narcotic medication. Mild aortic stenosis 07/27/2021 Last Assessment & Plan: Following with cardiology Aortocoronary bypass status 03/09/2021 Chronic atrial fibrillation 03/01/2021 Overview: new onset, [facility] on apixaban Last Assessment 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[place] co ronary artery of [place] heart without angina pectoris Last Assessment & Plan: Stable no angina -continue rosuvastatin, metopropolol, Anxiety state Last Assessment & Plan: Stable on buspar, Primary hypertension Gastroesophageal reflux disease with eso phagitis without hemorrhage Last Assessment & Plan: symptoms controlled on pantoprazole Scoliosis of lumbar spine Mixed incontinence urge and stress (male )(female) documented as of this encounter (statuses as of 09/01/2022) Resolved Problems Problem Noted Date Resolved Date [...] ulcer 06/30/2014 06/26/2017 Overview: hgb 7.4 admitted [facility] CKD (chronic kidney disease) [...] as of this encounter (statuses as of 09/01/2022) Immunizations Name Administration Dates Next Due COVID-19 [...] encounter Miscellaneous Notes * Telephone Encounter - Lindsay Giordano RN - 09/01/2022 4:20 PM EDT Communication Note Name: Zoya Howard Situation: Patient called in for some shortness of breath and weakness she states starting yesterday she was having some slight BROUSSARD,weakness,and urinary incontinence (overnight only which is unusual for her ) States she felt feverish yesterday but not today SOB/BROUSSARD is present but improved from yesterday Weakness improved from yesterday She admits to not taking her diuretic the last 2 days because it makes her urinate to much Patient states right away she is not going to ER and is ok with a visit tomorrow Background: CKD,AFIB,CHF,DDD,mixed incontinence Assessment: Slight BROUSSARD per pt.states nothing she cant handle + weight gain (does not weight daily. No weight today. yest weight 160lbs. Patient states she has gained 30lbs over the last month w/o an increase in food intake or appetite. No [facility] and not taking diuretics as prescribed. Self adjusting) + HS incontinence (unusual for patient) + slight left LE edema per pt + no BM in 5 days (never picked up mirilax from pharmacy) Pt states no vitals equip and pulse oximeter not working Recommendation: HV for eval, poss urine Care team availability: GPS (location): [place] Acute nurse: none MIH: not availble in [facility] Home forge hand Acute Call Date: 09/01/2022 Time: 4:20 PM Name: Zoya Howard : 1938 Caller: Lavinia Relationship to self HPI: Zoya Howard is a 83 year old old female that is calling [facility] to report shortness of breath and weakness she states starting yesterday she was having some slight BROUSSARD,weakness,and urinary incontinence (overnight only which is unusual for her ) States she felt feverish yesterday but not today SOB/BROUSSARD is present but improved from yesterday Weakness improved from yesterday She admits to not taking her diuretic the last 2 days because it makes her urinate to much Patient states right away she is not going to ER and is ok with a visit tomorrow Background: CKD,AFIB,CHF,DDD,mixed incontinence ROS: Slight BROUSSARD per pt.states nothing she cant handle. Fluent speech + weight gain (does not weight daily. No weight today. yest weight 160lbs. Patient states she has gained 30lbs over the last month w/o an increase in food intake or appetite. No [facility] and not taking diuretics as prescribed. Self adjusting) + HS incontinence (unusual for patient but does not express burning or other UTI s/s) + slight left LE edema per pt + no BM in 5 days (never picked up mirilax from pharmacy. States no pain and that she will take care of it) Pt states no vitals equip and pulse oximeter not working Denies diatress,SOB at rest,palpitations,dizziness, N/V/D,abd bloating/pain,congestion,or falls Nursing Assessment: Patient's chief complaint for this call: Shortness of breath Pain Denies pain Baseline Assessment Able to performing ADLs at baseline (walking, daily tasks, etc.): Yes Chief Complaint is related to a chronic condition: Yes Chronic Condition: HF Chief Complaint is a change in baseline: Yes, increased BROUSSARD Patient prescribed oxygen? No Patient has been ordered DME equipment (assistive devices, respiratory equipment, etc.): No Medication Reconciliation: Received flu shot this season: No Taking medication as ordered: No, self adjusting meds Medications ordered/taking to treat reason for call: Yes, PRN medication(s) torsemide Heart failure symptoms: Yes Is Diuretic Titration Protocol (DTP) ordered? Yes Describe Diuretic Titration Protocol (DTP): double dose torsemide x 3 days Diuretic Titration Protocol (DTP) activated: No Intake recommends initiating Diuretic Titration Protocol (DTP): Yes, medications recommended patient will not take regular dose of torsemide so does not want to double.pt also mentioned she did not drink much yesterday so instructed patient to take regular dose of torsemide.since she hasnt taken itin 2 days. other interventions upon RNCM eval COPD exacerbation symptoms: No Reinforcement Education: fluids up to restrictions Elevate legs Rest in between activities meds as prescribed Rest in between activities Warm prune juice and mirilax for constipation May need new RX for mirilax Pt uses [facility], poss urine interventions TBD upon RNCM eval/ C Treatment/Plan: Level of call: Acute Appointment scheduled for same day: No Provider Name: geraldo Yao production underwriter to see tomorrow. RNCM notified via TT Treatment plan until appointment: to [facility] for recommendations 24.48hr calls Call back instructions provided to patient. Lindsay Giordano RN, BSN [facility] reject opener and fillerUpholstery Sewer documented in this encounter Plan of Treatment Upcoming Encounters Date Type Specialty Care Team Description 09/02/2022 Home Visit [facility], Nurse [facility] [address] [place] [address] 09/03/2022 Scheduled Telephone [facility], [facility] [address] [place] [address] 09/04/2022 Home Visit [facility] Maia Yao RN [address] [place] [address] 10/04/2022 Office Visit Nephrology Tirso Shah MD [address] [facility] [place] [address] 10/13/2022 Telemedicine [facility] Anna Claudio CRNP [address] [place] [address] Ashley Castaneda, Community Health Carbonation Equipment Operator [address] [place] [address] [place] [address] 01/29/2023 Office Visit Family Medicine Con Coughlin MD [address] [place] [address] [place] [address] Health Maintenance Due Date Last Done Comments DTaP,Tdap,and Td Vaccines (1 - Tdap) 11/15/1957 COVID-19 Vaccine (5 - Mixed Product series) 06/14/2020 04/19/2020, 04/04/2020, 03/22/2020, Additional history exists Depression Screening, Annual for Pts 12 and Over 09/29/2020 09/30/2019 CKD PHOS USE SMARTSET 92070 06/08/202205/21, 09/07/2020, 08/17/2020, Additional history exists Influenza Vaccine (FLU shot) (#1) 2022 01/10/2022, 11/18/2020, 12/06/2019, Additional history exists CKD HGB USE SMARTSET 36621 07/07/202307/06, 07/06/2022, 06/08/2021, Additional history exists Albumin/Creatinine [...] of this encounter Care Teams Director Of Housing Relationship Specialty Start Date End Date Con Coughlin MD [address] [place] [address] [place] [address] PCP - General Family Medicine 06/30/14 documented as of this encounter
--- OUTSIDE RECORDS SUMMARY | 2023-01-29 20:13 | External Medical Summary | Summary of Care ---
Author Name Unknown Organization [facility] Address [address] [place] [address] Phone [phone] Care Team Providers Care Christmas Tree Farm Worker Name Role Phone Con Coughlin MD Primary Care Provider Reason for Visit * Reason Onset Date Comments [facility]: Maintenance 09/03/2022 Encounter Details Date Type Department Care Team Description 09/03/2022 Scheduled Telephone [facility], [facility] [address] [facility] [place] [address] [facility], Nurse [facility] [address] [place] [address] Allergies Active Allergy Reactions Severity Noted Date Comments Ergotamine 03/01/2000 vomit Nitroglycerin 03/14/2007 vomitting documented as of this encounter (statuses as of 09/03/2022) Medications Medication Sig Dispensed Refills Start Date [...] blood pressure less than 140/90,Atherosclero sis of [place] coronary artery of [place] heart without angina pectoris,Primary hypertension TAKE ONE [...] as of this encounter (statuses as of 09/03/2022) Active Problems Problem Noted Date Current moderate episode of major depressive disorder without prior episode 04/07/2022 Food insecurity 08/01/2021 Overview: Per [facility] Protocol Hypertensive heart and kidne y [...] atrial fibrillation 03/01/2021 Overview: new onset, [facility] on apixaban Last Assessment & Plan: 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[place] co ronary artery of [place] heart without angina pectoris Last Assessment & Plan: Stable no angina -continue rosuvastatin, metopropolol, Anxiety state Last Assessment & Plan: Stable on buspar, Primary hypertension Gastroesophageal reflux disease with eso phagitis without hemorrhage Last Assessment & Plan: symptoms controlled on pantoprazole Scoliosis of lumbar spine Mixed incontinence urge and stress (male )(female) documented as of this encounter (statuses as of 09/03/2022) Resolved Problems Problem Noted Date Resolved Date [...] 06/30/2014 06/26/2017 Overview: hgb 7.4 admitted [facility] CKD (chronic kidney disease) stage 3, [...] as of this encounter (statuses as of 09/03/2022) Immunizations Name Administration Dates Next Due COVID-19 [...] Telephone Encounter - Maia Yao RN - 09/03/2022 2:20 PM EDT Follow up employment consultant fluid retention/med compliance. No answer. Left vm requesting return call . Pt also scheduled for return home visit tomorrow with RNCM. documented in this encounter Plan of Treatment Upcoming Encounters Date Type Specialty Care Team Description 09/04/2022 Home Visit [facility] Maia Yao RN [address] [place] [id number] 10/04/2022 Office Visit Nephrology Tirso Shah MD [address] [place] [address] 10/13/2022 Telemedicine [facility] Anna Claudio CRNP [address] [place] [address] Ashley Castaneda, Community Health Glass Science Engineer [address] [place] [address] [place] [phone] 01/29/2023 Office Visit Family Medicine Con Coughlin MD [address] [place] [address] [place] [address] Health Maintenance Due Date Last Done Comments DTaP,Tdap,and Td Vaccines (1 - Tdap) 11/15/1957 COVID-19 Vaccine (5 - Mixed Product series) 06/14/2020 04/19/2020, 04/04/2020, 03/22/2020, Additional history exists Depression Screening, Annual for Pts 12 and Over 09/29/2020 09/30/2019 CKD PHOS USE SMARTSET 91554 06/08/202205/21, 09/07/2020, 08/17/2020, Additional history exists Influenza Vaccine (FLU shot) (#1) 2022 01/10/2022, 11/18/2020, 12/06/2019, Additional history exists CKD HGB USE SMARTSET 38519 07/07/202307/06, 07/06/2022, 06/08/2021, Additional history exists Albumin/Creatinine [...] filedocumented as of this encounter Care Teams Christmas Tree Farm Worker Relationship Specialty Start Date End Date Con Coughlin MD [address] [place] [address] [place] [id number] PCP - General Family Medicine 06/30/14 documented as of this encounter
--- OUTSIDE RECORDS SUMMARY | 2023-01-29 20:13 | External Medical Summary | Summary of Care ---
Author Name Unknown Organization [facility] Address [address] [place] [address] Phone [phone] Care Team Providers Care Physical Therapist Center Manager Name Role Phone Con Coughlin MD Primary Care Provider Reason for Visit * Reason Onset Date Comments Encounter Created in Error 07/06/2022 Encounter Details Date Type Department Care Team Description 07/06/2022 Telephone Care Coordination [address] [place] [address] Ashley Castaneda [address] [place] [phone] Encounter Created in Error (/) Allergies Active Allergy Reactions Severity Noted Date Comments Ergotamine 03/01/2000 vomit Nitroglycerin 03/14/2007 vomitting documented as of this encounter (statuses as of 08/18/2022) Medications Medication Sig Dispensed Refills Start Date [...] blood pressure less than 140/90,Atherosclero sis of [place] coronary artery of [place] heart without angina pectoris,Primary hypertension TAKE ONE [...] as needed 60 Tablet 1 06/21/2022 Active Gabapentin 300 MG Oral Capsule (Neurontin)Indicati ons:DDD (degenerative disc disease), lumbar Take 1 Capsule by mouth in the morning and 1 Capsule before bedtime. 60 Capsule 1 06/29/2022 Active Torsemide 20 MG Oral Tablet [...] every 4 hours for diarrhea. 0 Active documented as of this encounter (statuses as of 08/18/2022) Active Problems Problem Noted Date Current moderate 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[place] co ronary artery of [place] heart without angina pectoris Last Assessment & Plan: Stable no angina -continue rosuvastatin, metopropolol, Anxiety state Last Assessment & Plan: Stable on buspar, Primary hypertension Gastroesophageal reflux disease with eso phagitis without hemorrhage Last Assessment & Plan: symptoms controlled on pantoprazole Scoliosis of lumbar spine Mixed incontinence urge and stress (male )(female) documented as of this encounter (statuses as of 08/18/2022) Resolved Problems Problem Noted Date Resolved Date [...] as of this encounter (statuses as of 08/18/2022) Immunizations Name Administration Dates Next Due COVID-19 [...] encounter Miscellaneous Notes * Telephone Encounter - Renetta Rodriguez Farm Instructor - 08/18/2022 8:31 AM EDT Encounter created in error documented in this encounter Plan of Treatment Upcoming Encounters Date Type Specialty Care Team Description 09/04/2022 Home Visit [facility] Maia Yao RN [address] [place] [address] 10/04/2022 Office Visit Nephrology Tirso Shah MD [address] [place] [address] 10/13/2022 Telemedicine [facility] Anna Claudio CRNP [address] [place] [address] Ashley Castaneda Community Health Assistant [address] [place] [address] [place] [phone] 01/29/2023 Office Visit Family Medicine Con Coughlin MD [address] [place] [address] [place] [id number] Health Maintenance Due Date Last Done Comments DTaP,Tdap,and Td Vaccines (1 - Tdap) 11/15/1957 COVID-19 Vaccine (5 - Mixed Product series) 06/14/2020 04/19/2020, 04/04/2020, 03/22/2020, Additional history exists Depression Screening, Annual for Pts 12 and Over 09/29/2020 09/30/2019 CKD PHOS USE SMARTSET 15007 06/08/2022 04/2 , 09/07/2020, 08/17/2020, Additional history exists CKD HGB USE SMARTSET 74806 07/07/202307/06, 07/06/2022, 06/08/2021, Additional history exists Albumin/Creatinine [...] Not on filedocumented as of this encounter Additional Health Concerns Infection Onset Date Last Indicated Resolved Time Gastrointestinal Rule-Out 07/06/2022 07/11/2022 3:11 PM EDT C. difficile Rule-Out 07/06/2022 07/11/20222022 10:49 PM EDT documented as of this encounter Care Teams Physical Therapist Center Manager Relationship Specialty Start Date End Date Con Coughlin MD [address] [place] [address] [place] [phone] PCP - General Family Medicine 06/30/14 documented as of this encounter
--- OUTSIDE RECORDS SUMMARY | 2023-01-29 20:14 | External Medical Summary | Summary of Care ---
Author Name Unknown Organization [facility] Address [address] [place] [address] Phone [phone] Care Team Providers Care Telephone Answering Service Operator Name Role Phone Con Coughlin MD Primary Care Provider Reason for Visit * Reason Comments [facility]: Maintenance Encounter Details Date Type Department Care Team Description 08/09/2022 Home Visit [facility], [facility] [address] [place] [address] Lana Lieberman RN [address] [place] [address] Allergies Active Allergy Reactions Severity Noted Date Comments Ergotamine 03/01/2000 vomit Nitroglycerin 03/14/2007 vomitting documented as of this encounter (statuses as of 08/10/2022) Medications Medication Sig Dispensed Refills Start Date [...] blood pressure less than 140/90,Atherosclero sis of [place] coronary artery of [place] heart without angina pectoris,Primary hypertension TAKE ONE [...] as of this encounter (statuses as of 08/10/2022) Active Problems Problem Noted Date Current moderate episode of major depressive disorder without prior episode 04/07/2022 Food insecurity 08/01/2021 Overview: Per [facility] Protocol Hypertensive heart and kidne [...] discuss her pain concerns. 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 Last Assessment & Plan: Stable no angina -continue rosuvastatin, metopropolol, Anxiety state Last Assessment & Plan: Stable on buspar, Primary hypertension Gastroesophageal reflux disease with eso phagitis without hemorrhage Last Assessment & Plan: symptoms controlled on pantoprazole Scoliosis of lumbar spine Mixed incontinence urge and stress (male )(female) documented as of this encounter (statuses as of 08/10/2022) Resolved Problems Problem Noted Date Resolved Date [...] as of this encounter (statuses as of 08/10/2022) Immunizations Name Administration Dates Next Due COVID-19 [...] Sign Reading Time Taken Comments Blood Pressure 106/62 08/09/2022 12:46 PM EDT Pulse 74 08/09/2022 12:46 PM EDT Temperature 36.1 C (96.9 F) 08/09/2022 12:46 PM E DT Respiratory Rate 18 08/09/2022 12:46 PM EDT Oxygen Saturation 99% 08/09/2022 12:46 PM EDT Inhaled Oxygen Concentration - - Weight - - Height - - Body Mass Index - - documented in this encounter Progress Notes * Lana Lieberman RN - 08/09/2022 12:37 PM EDT [facility] Return To Service Inspector Visit Date: 08/09/2022 Time: 12:37 PM Name: Zoya Howard : 1938 Current Concerns: Patient seen for follow up- Medical history- CHF, Afib, HTN, GERD Hospitalization at the beginning of month- denies nausea since Zofran has been increased to 8mg. Pill packs in home- includes Amlodipine 5mg daily as per [facility] discharge instructions-07/21/22 Reports feeling well VS wnl Lungs clear bilaterally Sob with exertion No LE edema noted Voiding without difficulty Bowels wnl- per report Appetite good Taking fluids Problems/Symptoms: Review of Systems Constitutional: Negative. HENT: Negative. Eyes: Negative. Respiratory: Positive for shortness of breath. Cardiovascular: Negative. Gastrointestinal: Negative. Endocrine: Negative. Genitourinary: Negative. Musculoskeletal: Negative. Skin: Negative. Allergic/Immunologic: Negative. Neurological: Negative. Hematological: Negative. Psychiatric/Behavioral: Negative. Physical Exam: BP 106/62 (BP Site: Left Arm, BP Position: Sitting, BP Cuff Size: Regular) | Pulse 74 | Temp 36.1 C (96.9 F) (Tympanic) | Resp 18 | SpO2 99% Pain 0 Physical Exam Constitutional: Appearance: Normal appearance. Cardiovascular: Rate and Rhythm: Normal rate. Pulses: Normal pulses. Heart sounds: Normal heart sounds. Pulmonary: Effort: Pulmonary effort is normal. Breath [...] and Affect: Mood normal. Behavior: Behavior normal. MAH-10 Completed this Visit: No. No falls since last visit Treatment/Plan[facility] Low na diet Elevate ble prn edema [facility]- PT, SN Continue medications as prescribed Keep all upcoming MD appointments Fall precautions RN CM follow up in 4 weeks Home Interventions Provided: Reinforced current Plan of Care, including self-management and medication regimen Patient's Goals of Care: 1. Get myself back to my normal 2. "Get my memory managed on a short term basis" 3. Improve my time management Patient's 'Red Flags': 1. N&V unrelieved by Zofran 2. Increase sob 3. Increased edema BLE Patient Needs to Remember: Call [facility] with any medical concerns/ red flags Referrals Needed: n/a Follow Up: Is there cellular connectivity/connectivity in the home? Yes Does the patient have internet in the home? No Patient encouraged to call the intake phone number for all urgent but not emergent issues. Scheduled to follow up with patient in 4 weeks Lana Schuler RN 08/09/2022 12:37 PM documented in this encounter Plan of Treatment Upcoming Encounters Date Type Specialty Care Team Description 09/04/2022 Home Visit [facility] MaximilianMaia, RN [address] [place] [address] 10/04/2022 Office Visit Nephrology Tirso Shah MD [address] [place] [address] 01/29/2023 Office Visit Family Medicine Con Coughlin MD [address] [place] [address] [place] [phone] Health Maintenance Due Date Last Done Comments DTaP,Tdap,and Td Vaccines (1 - Tdap) 11/15/1957 COVID-19 Vaccine (5 - Mixed Product series) 06/14/2020 04/19/2020, 04/04/2020, 03/22/2020, Additional history exists Depression Screening, Annual for Pts 12 and Over 09/29/2020 09/30/2019 CKD PHOS USE SMARTSET 72225 06/08/202205/21, 09/07/2020, 08/17/2020, Additional history exists CKD HGB USE SMARTSET 32093 07/07/202307/06, 07/06/2022, 06/08/2021, Additional history exists Albumin/Creatinine [...] filedocumented as of this encounter Care Teams Telephone Answering Service Operator Relationship Specialty Start Date End Date Con Coughlin MD [address] [place] [address] [place] [phone] PCP - General Family Medicine 06/30/14 documented as of this encounter
--- OUTSIDE RECORDS SUMMARY | 2023-01-29 20:14 | External Medical Summary | Summary of Care ---
Author Name Unknown Organization [facility] Address [address] [place] [address] Phone [phone] Care Team Providers Care Cloth Napping Supervisor Name Role Phone Con Coughlin MD Primary Care Provider [phone] Encounter Details Date Type Department Care Team Description 08/02/2022 Home Visit [facility], [facility] [address] [place] [phone] Mago Guillaume PA-C [address] [place] [address] Advanced care planning/counseling discussion*; Atherosclerosis of [place] coronary artery of [place] heart without angina pectoris; Chronic atrial fibrillation (HCC); Hypertensive heart and kidney disease with chronic diastolic congestive heart failure and stage 3b chronic kidney disease (HCC); Mild aortic stenosis; Gastroesophageal reflux disease with esophagitis without hemorrhage; Acquired hypothyroidism; Anxiety state; DDD (degenerative disc disease), lumbar Allergies Active Allergy Reactions Severity Noted Date Comments Ergotamine 03/01/2000 vomit Nitroglycerin 03/14/2007 vomitting documented as of this encounter (statuses as of 08/03/2022) Medications Medication Sig Dispensed Refills Start Date [...] 04/05/2022 Active Eliquis 2.5 MG Oral Tablet (Apixaban)Indicati [...] blood pressure less than 140/90,Atheroscler osis of [place] coronary artery of [place] heart without angina pectoris,Primary hypertension TAKE [...] 06/21/2022 Active Gabapentin 300 MG Oral Capsule (Neurontin)Indicat [...] or juice. 225 g 3 08/02/2022 Active Nabumetone 500 MG Oral Tablet (Relafen)Indicatio ns:DDD (degenerative disc disease), lumbar Take 1 Tablet by mouth in the morning and 1 Tablet before bedtime. 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[place] co ronary artery of [place] heart without angina pectoris Last Assessment & Plan: Stable no angina -continue rosuvastatin, metopropolol, Anxiety state Last Assessment & Plan: Stable on buspar, Primary hypertension Gastroesophageal reflux disease with eso phagitis without hemorrhage Last Assessment & Plan: symptoms controlled on pantoprazole Scoliosis of lumbar spine Mixed incontinence urge and stress (male )(female) documented as of this encounter (statuses as of 08/03/2022) Resolved Problems Problem Noted Date Resolved Date [...] as of this encounter (statuses as of 08/03/2022) Immunizations Name Administration Dates Next Due COVID-19 [...] Sign Reading Time Taken Comments Blood Pressure 138/72 08/02/2022 3:39 PM EDT Pulse 74 08/02/2022 3:39 PM EDT Temperature 36.5 C (97.7 F) 08/02/2022 3:39 PM ED T Respiratory Rate 18 08/02/2022 3:39 PM EDT Oxygen Saturation 98% 08/02/2022 3:39 PM EDT Inhaled Oxygen Concentration - - Weight - - Height - - Body Mass Index - - documented in this encounter Progress Notes * Mago Guillaume PA-C - 08/02/2022 3:27 PM EDT Images from the original note were not included. [facility] Problem Oriented Charting Provider Visit Date: 08/02/2022 Time: 3:28 PM [facility] Sub-Program: Short-Term Management (less than 3 months) [facility] Episode Start Date: Noted: 07/18/2022 Assessment and Plan #1 Advanced care planning/counseling discussion - Advance Care Plan Discussed/Alternate Decision Maker Doc'd #2 Atherosclerosis of [place] coronary artery of [place] heart without angina pectoris Assessment & Plan: Stable no angina -continue rosuvastatin, metopropolol, #3 Chronic atrial fibrillation (HCC) Overview: new onset, [facility] on apixaban Assessment & Plan: Rate controller. Regular today -continue eliquis and metoprolol #4 Hypertensive heart and kidney disease with chronic [...] days Exacerbation Plan o BMP o Pro-BNP #5 Mild aortic stenosis Assessment & Plan: Following with cardiology #6 Gastroesophageal reflux disease with esophagitis without hemorrhage Assessment & Plan: symptoms controlled on pantoprazole #7 Acquired hypothyroidism Assessment & Plan: Continue synthroid #8 Anxiety state Assessment & Plan: Stable on buspar, #9 DDD (degenerative disc disease), lumbar Assessment & Plan: Stable -CONSIDER D/CE OF RELAFEN (NSAID) with use of eliquis and known cardiac disease Additional Medical Decision Making: Lavinia is doing well at home. Next provider visit 2 months Follow Up: Return in about 2 months (around 10/02/2022) for [facility] to Home. | For: [facility] Home Scheduled appointments in the next 60 days: Future Appointments-next 60 days Date/Time Provider Specialty Dept Phone 08/08/2022 4:00 PM Lana Lieberman RN [facility] [phone] 10/04/2022 10:00 AM (Arrive by 9:45 AM) Tirso Shah MD Nephrology [phone] 01/29/2023 12:00 PM (Arrive by 11:45 AM) Con Coughlin MD Family Medicine [phone] A total of 70 minutes was spent face to face (via video-based telemedicine if designated as a telemedicine visit) Subjective Subjective Is this a Telemedicine Visit? No, this is an Home Visit. Reason For [facility] Visit: Follow-Up Current Concerns: Zoya Howard is a 83 year old female seen today for a [facility] provider visit. Today's concerns are: Admit [facility] at the end of June for viral gastroenteritis. Was in 8 days. Did ok post discharge once zofran was increased to 8 mg every 8 hrs. Intermittently still getting nauseated. The zofran has taken care of it. Last BM was 4 days ago. Has significantly decreased diet. Is still afraid of getting nauseated. BM are small but soft. No abd pain. Advised to do either dulcolax or fleet enema. Wants something orally. Miralax rx given No falls. Uses rollator for long walks. Somewhat depressed since her dog on , but stable No recent respiratory sx. Additional Review of Systems All other systems reviewed and are negative. Objective Objective Vitals: 08/02/22 1539 Temp: 36.5 C (97.7 F) Pulse: 74 Resp: 18 SpO2: 98% BP: 138/72 BP Readings from Last 3 Encounters: 08/02/22 138/72 07/27/22 136/72 07/24/22 144/80 Wt Readings from Last 3 Encounters: 07/27/22 71 kg (156 lb 8 oz) 07/06/22 71.2 kg (157 lb) 06/15/22 73.8 kg (162 lb 11.2 oz) Last Weights: Wt Readings from Last 3 Encounters: 07/27/22 71 kg (156 lb 8 oz) 07/06/22 71.2 kg (157 lb) 06/15/22 73.8 kg (162 lb 11.2 oz) Last BPs: BP Readings from Last 4 Encounters: 08/02/22 138/72 07/27/22 136/72 07/24/22 144/80 07/06/22 124/60 Physical Exam Constitutional: Appearance: Normal appearance. HENT: Head: Normocephalic. Mouth/Throat: Mouth: Mucous membranes are moist. Eyes: Extraocular Movements: Extraocular movements intact. Cardiovascular: Rate and Rhythm: Normal rate and regular rhythm. Heart sounds: Murmur heard. Pulmonary: Effort: Pulmonary effort is normal. Breath sounds: Normal breath sounds. Abdominal: General: Bowel sounds are normal. Palpations: Abdomen is soft. Musculoskeletal: Cervical back: Neck supple. Comments: RLE: +1 pitting edema LLE. No erythema, warmth (chronic) LLE: Trace pitting edema Skin: General: Skin is warm and dry. Neurological: General: No focal deficit present. Mental Status: She is alert and oriented to person, place, and time. Psychiatric: Mood and Affect: Mood normal. Lab Review: I have reviewed the following results: BMP results Recent Labs Units 07/27/22 1142 07/06/22 1339 07/14/21 1459 SODIUM - [facility] mmol/L 142 141 142 POTASSIUM - [facility] mmol/L 4.3 3.9 3.8 CHLORIDE - [facility] mmol/L 105 102 105 CO2 - [facility] mmol/L 24 28 29 CREATININE - [facility] mg/dL 2.2* 1.7* 1.2* BUN - [facility] mg/dL 39* 42* 33* Lipid panel resultsNo results for input(s): CHOL, LDLCALC, HDL, TRIG in the last 64231 hours. CBC results Recent Labs Units 07/06/22 1339 06/08/21 1520 05/09/21 0000 05/06/21 1148 WBC AUTO - [facility] K/uL 7.77 6.62 -- 5.63 HGB - [facility] g/dL 11.6* 10.8* -- 12.5 HEMOGLOBIN-OUTSIDE LAB G/DL -- -- 10.9* -- HCT - [facility] % 37.4 34.4* -- 40.7 PLATELET AUTO - [facility] K/uL 209 144 -- 194 HbA1c results No results for input(s): HGBA1C in the last 70993 hours. TSH results Recent Labs Units 07/27/22 1142 06/08/21 1520 TSH - [facility] uIU/mL 0.34 0.47 Vitamin D results No results for input(s): 25OHVITAMIND in the last 16743 hours. Hepatic panel results Recent Labs Units 07/06/22 1339 PROTEIN - [facility] g/dL 6.9 BILIRUBIN, TOTAL - [facility] mg/dL 0.3 ALKALINE PHOSPHATASE - [facility] U/L 78 AST - [facility] U/L 21 ALT - [facility] U/L 15 Protein/cr ratio results No results for input(s): PROCRRATIO in the last 94336 hours. Medication Review "Bottles Out" medication review performed today and medication list in EMR updated Mobility Evaluation: MAHC10 Assessment: Assistive Devices Used in the Home: Walker (standard or rollator) Mago Guillaume PA-C 3:28 PM *Communication sent to PCP (via [facility] if non-[facility]), [facility] Health Care Team members,relevant Specialty Care Physicians* documented in this encounter Miscellaneous Notes * Assessment & Plan Note - Mago Guillaume PA-C - 08/03/2022 11:45 AM EDT Associated Problem(s): DDD (degenerative disc disease), lumbar Stable -CONSIDER D/CE OF RELAFEN (NSAID) with use of eliquis and known cardiac disease * Assessment & Plan Note - Mago Guillaume PA-C - 08/03/2022 11:40 AM EDT Associated Problem(s): Anxiety state Stable on buspar, * Assessment & Plan Note - Mago Guillaume PA-C - 08/03/2022 11:40 AM EDT Associated Problem(s): Acquired hypothyroidism Continue synthroid * Assessment & Plan Note - Mago Guilalume PA-C - 08/03/2022 11:39 AM EDT Associated Problem(s): Gastroesophageal reflux disease with esophagitis without hemorrhage symptoms controlled on pantoprazole * Assessment & Plan Note - Mago Guillaume PA-C - 08/03/2022 11:39 AM EDT Associated Problem(s): Mild aortic stenosis Following with cardiology * Assessment & Plan Note - Mago Guillaume PA-C - 08/03/2022 11:38 AM EDT Associated Problem(s): Hypertensive heart and kidney [...] days Exacerbation Plan o BMP o Pro-BNP * Assessment & Plan Note - Mago Guillaume PA-C - 08/03/2022 11:37 AM EDT Associated Problem(s): Chronic atrial fibrillation (HCC) Rate controller. Regular today -continue eliquis and metoprolol * Assessment & Plan Note - Mago Guillaume PA-C - 08/03/2022 11:36 AM EDT Associated Problem(s): Atherosclerosis of [place] coronary artery of [place] heart without angina pectoris Stable no angina -continue rosuvastatin, metopropolol, * ACP (Advance Care Planning) - Mago Guillaume PA-C - 08/02/2022 3:46 PM EDT Patient-centered Communication 08/02/2022 The patient/surrogate voluntarily agreed to participate in advance care planning discussion. They were advised that this is a separate service which may incur out of pocket cost in the form of copayment and/or deductibles. Location: Home Individual(s) present for conversation: Patient Decisions Synopsis [employer] Most Recent Value Past ~10 years 08/03/2022 11:46 Decisions CPR decision: Patient chooses CPR 08/03/2022 Patient chooses CPR Intubation/Mechanical Ventilation decision: Patient chooses Intubation/mechanical ventilation 08/03/2022 Patient chooses Intubation/mechanical ventilation Non-invasive ventilation or BIPAP decision: Patient chooses non-invasive ventilation. Select interventions below 08/03/2022 Patient chooses non-invasive ventilation. Select interventions below Antibiotic therapy decision: Patient chooses Antibiotic therapy 08/03/2022 Patient chooses Antibiotic therapy IV hydration decision: Patient chooses IV hydration 08/03/2022 Patient chooses IV hydration Blood transfusion decision: Patient chooses Blood transfusion 08/03/2022 Patient chooses Blood transfusion Lab draw decision: Patient chooses Lab draws 08/03/2022 Patient chooses Lab draws Additional Comments Discerning What Matters Most to the Patient: Synopsis [employer] Most Recent Value Past ~10 years 05/02/2021 12:00 Discerning What Matters Most to the Patient Their current SYMPTOMS include: Pain;Tiredness 05/02/2021 Pain;Tiredness They say their illness has CHANGED THEIR LIFE by: Financial strain/stress 05/02/2021 Financial strain/stress Was PROGNOSIS discussed? 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 05/02/2021 pt does not want to end up living terminal superintendent in a jail. Source: Content from [employer] [facility] Aligning Care With What Matters Most: [employer] Most Recent Value Past ~10 years 08/03/2022 11:46 Aligning Care With What Matters Most Interventions/Choices: CPR;Intubation/mechanical ventilation;Non-invasive ventilation or BIPAP;Antibiotic therapy;IV hydration;Blood transfusion;Lab draws 08/03/2022 CPR;Intubation/mechanical ventilation;Non-invasive ventilation or BIPAP;Antibiotic therapy;IV hydration;Blood transfusion;Lab draws Rationale for Decisions Swarm[employer] Most Recent Value Past ~10 years 09/15/2021 14:06 Intubation/mechanical ventilation Their fears/concerns about Intubation/mechanical ventilation decision are: patient ok with short term 09/15/2021 patient ok with short term Source: Content from [employer] [facility] 10 minutes spent in direct [id number] discussion today, Mago Guillaume PA-C Patient-centered Communication 08/03/2022 The patient/surrogate voluntarily agreed to participate in advance care planning discussion. They were advised that this is a separate service which may incur out of pocket cost in the form of copayment and/or deductibles. Location: Home Individual(s) present for conversation: Patient Decisions Synopsis [employer] Most Recent Value Past ~10 years 08/03/2022 11:46 Decisions CPR decision: Patient chooses CPR 08/03/2022 Patient chooses CPR Intubation/Mechanical Ventilation decision: Patient chooses Intubation/mechanical ventilation 08/03/2022 Patient chooses Intubation/mechanical ventilation Non-invasive ventilation or BIPAP decision: Patient chooses non-invasive ventilation. Select interventions below 08/03/2022 Patient chooses non-invasive ventilation. Select interventions below Antibiotic therapy decision: Patient chooses Antibiotic therapy 08/03/2022 Patient chooses Antibiotic therapy IV hydration decision: Patient chooses IV hydration 08/03/2022 Patient chooses IV hydration Blood transfusion decision: Patient chooses Blood transfusion 08/03/2022 Patient chooses Blood transfusion Lab draw decision: Patient chooses Lab draws 08/03/2022 Patient chooses Lab draws Additional Comments Discerning What Matters Most to the Patient: [employer] Consumer Most Recent Value Past ~10 years 05/02/2021 12:00 Discerning What Matters Most to the Patient Their current SYMPTOMS include: Pain;Tiredness 05/02/2021 Pain;Tiredness They say their illness has CHANGED THEIR LIFE by: Financial strain/stress 05/02/2021 Financial strain/stress Was PROGNOSIS discussed? No 05/02/2021 No The patient defines LIVING WELL as: being able to drive and take care of myself 05/02/[address] take care of myself The patient's FEARS/WORRIES about illness are: Going back to the hospital;Going to a jail 05/02/2021 Going back to the hospital;Going to a jail The patient considers these as 'UNACCEPTABLE OUTCOMES': Prolonged jail stay (define below) 05/02/2021 Prolonged jail stay (define below) Prolonged jail stay, patient defines as: pt does not want to end up living nursing home in a jail. 05/02/2021 pt does not want to end up living nursing home in a jail. Source: Content from [employer] [facility] Aligning Care With What Matters Most: [employer] Consumer Most Recent Value Past ~10 years 08/03/2022 11:46 Aligning Care With What Matters Most Interventions/Choices: CPR;Intubation/mechanical ventilation;Non-invasive ventilation or BIPAP;Antibiotic therapy;IV hydration;Blood transfusion;Lab draws 08/03/2022 CPR;Intubation/mechanical ventilation;Non-invasive ventilation or BIPAP;Antibiotic therapy;IV hydration;Blood transfusion;Lab draws Rationale for Decisions Synopsis [employer] Most Recent Value Past ~10 years 09/15/2021 14:06 Intubation/mechanical ventilation Their fears/concerns about Intubation/mechanical ventilation decision are: patient ok with short term 09/15/2021 patient ok with short term Source: Content from [employer] [facility] 10 minutes spent in direct [id number] discussion today, Mago Guillaume PA-C documented in this encounter Plan of Treatment Upcoming Encounters Date Type Specialty Care Team Description 08/08/2022 Home Visit [facility] L[place] Lieberman, RN [address] [facility] [place] [address] 10/04/2022 Office Visit Nephrology Tirso Shah MD [address] [place] [address] 01/29/2023 Office Visit Family Medicine Con Coughlin MD [address] [place] [address] [place] [phone] Health Maintenance Due Date Last Done Comments DTaP,Tdap,and Td Vaccines (1 - Tdap) 11/15/1957 COVID-19 Vaccine (5 - Mixed Product series) 06/14/2020 04/19/2020, 04/04/2020, 03/22/2020, Additional history exists Depression Screening, Annual for Pts 12 and Over 09/29/2020 09/30/2019 CKD PHOS USE SMARTSET 75931 06/08/202205/21, 09/07/2020, 08/17/2020, Additional history exists CKD HGB USE SMARTSET 96822 07/07/202307/06, 07/06/2022, 06/08/2021, Additional history exists Albumin/Creatinine [...] as of this encounter Visit Diagnoses Diagnosis Advanced care planning/counseling discussion- Primary Other specified counseling Atherosclerosis of [place] coronary artery of [place] heart without angina pectoris Chronic atrial fibrillation (HCC) Atrial fibrillation Hypertensive heart and kidney disease with chronic diastolic congestive heart failure and stage 3b chronic kidney disease (HCC) Mild aortic stenosis Aortic valve disorders Gastroesophageal reflux disease with esophagitis without hemorrhage Acquired hypothyroidism Unspecified hypothyroidism Anxiety state Anxiety state, unspecified DDD (degenerative disc disease), lumbar Degeneration of lumbar or lumbosacral intervertebral disc documented in this encounter Care Teams Cloth Napping Supervisor Relationship Specialty Start Date End Date Con Coughlin MD [address] [place] [address] [place] [id number] PCP - General Family Medicine 06/30/14 documented as of this encounter
[2023-01-29] MEDS ORDERED: guaiFENesin 600 MG TABCR PO SCH (21:00)
[2023-01-29] MEDS ORDERED: BENZONATATE 100 MG CAPSULE PO PRN (21:53)
[2023-01-29] MEDS ORDERED: ZOLPIDEM TARTRATE 5 MG TAB PO STA (21:53)
[2023-01-29] MEDS: ROSUVASTATIN CALCIUM 10 MG TAB PO SCH (22:42)
[2023-01-29] MEDS: PANTOprazole 40 MG TAB PO SCH (22:43)
[2023-01-29] MEDS: APIXABAN 5 MG TABLET PO SCH (22:44)
[2023-01-29] MEDS: GABAPENTIN 300 MG CAP PO SCH (22:45)
[2023-01-29] MEDS: busPIRone 5 MG TAB PO SCH (22:46)
[2023-01-29] MEDS: MAGNESIUM SULFATE / D5W 1 GM/100 ML BAG IV SCH (23:11)
[2023-01-30] MEDS: MAGNESIUM SULFATE / D5W 1 GM/100 ML BAG IV SCH ×3 (01:08→14:52)
[2023-01-30] MEDS: LEVOTHYROXINE SODIUM 100 MCG TABLET PO SCH (05:50)
[2023-01-30 06:41] LABS: Hemoglobin 10.1 g/dl (12.0-16.0); Mean Corpuscular Hemoglobin 29.3 pg (25.0-34.0); Mean Corpuscular Hgb Conc 32.6 g/dL (32.0-36.0); Mean Corpuscular Volume 89.9 fL (80.0-100.0); Mean Platelet Volume 10.3 fL (9.4-12.4); Platelet Count 130 K/uL (130-400); RDW Standard Deviation 52.8 fL (36.4-46.3); Red Blood Count 3.45 M/uL (4.20-5.40); White Blood Count 12.87 K/ul (4.8-10.8)
[2023-01-30 07:27] LABS: Albumin Globulin Ratio 1.3 (0.9-2); Albumin Level 3.3 gm/dl (3.4-5.0); BUN Creatinine Ratio 18.9 (10-20); Bilirubin,Total 0.6 mg/dl (0.2-1.0); Calcium 9.4 mg/dl (8.6-10.3); Creatinine Clr Calc Pharmacy 25.3 ml/min; Est GFR (African American) 36.8 ml/min; Est GFR (Non-African American) 31.7 ml/min; Globulin 2.6 gm/dl (2.5-4.0); Phosphorus 3.3 mg/dl (2.5-4.9); Potassium 3.8 mmol/L (3.5-5.1); Total Protein 5.9 gm/dl (6.0-8.3); Troponin I High Sensitivity 45.5 pg/ml (0-14)
[2023-01-30] MEDS ORDERED: FUROSEMIDE 40 MG/4 ML VIAL IV ONE (08:26)
[2023-01-30] MEDS: GABAPENTIN 300 MG CAP PO SCH ×2 (09:25→20:38)
[2023-01-30] MEDS: PANTOprazole 40 MG TAB PO SCH ×2 (09:25→20:37)
[2023-01-30] MEDS: APIXABAN 5 MG TABLET PO SCH ×2 (09:25→20:39)
[2023-01-30] MEDS: busPIRone 5 MG TAB PO SCH ×2 (09:25→20:38)
[2023-01-30] MEDS: METOPROLOL SUCC 50MG EXT REL TAB PO SCH (09:25)
[2023-01-30] MEDS ORDERED: COUGH DROP (SUGAR FREE) LOZ 24 LOZ/1 BOX BUCCAL PRN (09:45)
[2023-01-30] MEDS: guaiFENesin 600 MG TABCR PO SCH ×2 (11:02→20:38)
[2023-01-30] MEDS: cefTRIAXone SODIUM 2,000 MG in DEXTROSE 5 % MINI-B 50 ML IV SCH (11:03)
--- NOTE | 2023-01-30 11:37 | Cardiology Consultation ---
Date of Consultation January 30, 2023 Assessment & Plan (1) SOB (shortness of breath): (2) Sepsis due to pneumonia: (3) (HFpEF) heart failure with preserved ejection fraction: (4) Paroxysmal A-fib: (5) Hypomagnesemia: (6) CAD (coronary artery disease): (7) S/P CABG x 1: Plan 84-year-old woman with history of CAD (remote CABG), paroxysmal atrial fibrillation (sinus this admission), admitted with left-sided pneumonia and perhaps mild initial volume overload. After single dose of IV diuretic yesterday she now appears euvolemic, no need for additional diuretic in the absence of evidence for recurrent volume retention. At recent baseline, she has not required any diuretic. Upon discharge, she could be instructed once again to use PRN diuretic only for any abrupt weight gain or other evidence of volume retention. Rhythm appears sinus this admission, continue current dose of metoprolol succinate 50 mg daily and apixaban 5 mg twice daily. Minor troponin elevation in the absence of anginal type chest pain or ECG changes is likely demand ischemia in patient status post remote CABG currently admitted with pneumonia. She is doing well from a cardiac standpoint, will sign off. Please contact Dr. Qureshi tomorrow if she has any new or recurrent cardiac issues, as he will be covering cardiology service. Thank you. History of Present Illness Reason for Consultation: pulmonary edema, CHFpEF Requesting Physician: Zi Reynaga MD Attending Physician: Zi Reynaga MD History of Present Illness 84-year-old woman well-known to me from outpatient care with history of CAD (SANDOVAL to LAD CABG 1998), mild to moderate valvular disease (/MR/TR), paroxysmal atrial fibrillation (metoprolol/apixaban), and prior mild HFpEF who was admitted 01/29/2023 with dyspnea and abnormal chest x-ray. She had been hospitalized June 2022 with atypical chest pain, rhythm remained sinus and there is no evidence of heart failure during that stay. She was admitted again November 2022 with recurrent atrial fibrillation with rapid ventricular response, she had no evidence of heart failure during that stay. She noted to me that she had a viral URI type illness several weeks ago then developed fever and chills, nausea and vomiting, diarrhea, and generalized weakness. She had only atypical chest pain (transient sharp anterior chest wall pain lasting seconds at a time) and told me that she was able to lie flat and sleep through the night. No significant weight change or leg edema. Chest x- ray shows left sided infiltrates, suggesting pneumonia. Remaining pulmonary vasculature does not appear significantly congested to me and the right costop hrenic angle shows no evidence of effusion. A BNP was elevated at 534 (similar to a value from November 2021 when she demonstrated mild volume overload as an outpatient). Her admission weight of 163 pounds is similar to her discharge weights from her June 2022 and November 2022 hospitalizations. She does have a mild leukocytosis and had a low-grade fever overnight (100.0 F). She did receive a dose of IV diuretics with good results (input/output -1405 mL) and she has been receiving antibiotics (ceftriaxone) as well. At the time of my evaluation, she was resting comfortably and had no somatic complaints. Allergies Allergy/AdvReac Type Severity Reaction Status Date / Time nitroglycerin AdvReac Severe "PROJECTILE Verified 01/29/23 15:15 VOMITTING" ergotamine AdvReac Intermediate vomiting Verified 01/29/23 15:15 Home Medications Medication Instructions Recorded Confirmed Type levothyroxine 100 mcg tablet 100 mcg PO DAILYBB 01/23/18 01/29/23 History (Levoxyl) pantoprazole 40 mg tablet,delayed 40 mg PO BID 01/23/18 01/29/23 History release (Protonix) buspirone 10 mg tablet 10 mg PO BID #60 tabs 03/22/21 01/29/23 Rx gabapentin 300 mg capsule 300 mg PO BID 07/13/22 01/29/23 History apixaban 5 mg tablet (Eliquis) 5 mg PO BID #180 tabs 07/31/22 01/29/23 Rx rosuvastatin 10 mg tablet (Crestor) 10 mg PO DAILY 11/30/22 01/29/23 History calcitriol 0.25 mcg capsule 0.25 mcg PO MoWeFr@0900 #30 caps 12/12/22 01/29/23 Rx metoprolol succinate 50 mg 50 mg PO QAM #30 tabs 12/12/22 01/29/23 Rx tablet,extended release 24 hr ondansetron 4 mg disintegrating 4 mg PO Q8H PRN nausea and 12/12/22 01/29/23 Rx tablet vomiting #30 tabs zolpidem 5 mg tablet 5 mg PO HS PRN Sleep #30 tabs 01/16/23 01/29/23 Rx benzonatate 100 mg capsule 100 mg PO TID PRN Cough 01/29/23 01/29/23 History loperamide 2 mg tablet 2 mg PO QID PRN Diarrhea 01/29/23 01/29/23 History meloxicam 7.5 mg tablet 7.5 mg PO QAM PRN Pain 01/29/23 01/29/23 History sulfamethoxazole 800 1 tab PO AMHS 01/29/23 01/29/23 History mg-trimethoprim 160 mg tablet trazodone 150 mg tablet 150 mg PO HS 01/29/23 01/29/23 History Patient History Medical History (Updated 01/30/23 @ 11:41 by Noah Adams MD) Atrial fibrillation with rapid ventricular response (11/2022) CAD (coronary artery disease) Hypophosphatemia Hypomagnesemia Acute on chronic diastolic CHF (congestive heart failure) Sepsis due to pneumonia Fall New onset a-fib Moderate mitral regurgitation Mild aortic stenosis Transient ischemic attack (TIA) ~2012>REASON FOR PLAVIX Osteoarthritis Chronic back pain Dyslipidemia History of blood transfusion 2012 2/2 GASTRIC ULCER History of gastric ulcer 2012 Depression Acid reflux OCCASIONAL Spinal stenosis Arthritis Hypothyroidism Chronic kidney disease stage 3 Hypertension Surgical History (Updated 01/30/23 @ 11:41 by Noah Adams MD) History of cardiac cath NO STENTS History of coronary artery bypass graft 1998 (1 VESSEL) S/P epidural steroid injection History of esophagogastroduodenoscopy (EGD) 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 S/p reverse total shoulder arthroplasty RT/LEFT History of abdominoplasty PANNICULECTOMY History of colonoscopy History of arthroplasty of right hip History of arthroplasty of left hip History of hysterectomy with oophorectomy History of arthroplasty of left shoulder History of tonsillectomy and adenoidectomy H/O bilateral salpingo-oophorectomy with hyter Family History Father , age 74 Allergic reaction Mother , 80s CHF (congestive heart failure) Other No family history of adverse response to anesthesia Social History Smoking Status: Never smoker Second Hand Exposure: No; Do You Dip or Chew Tobacco: No; Tobacco Cessation Education Requested by Patient: No Hx Alcohol Use: No Hx Substance Use: No Preferred Language: Yi Communication Ability: Effective Visual Impairment: No Limitations [place] Opener Required: No Beliefs That Will Affect Care: None marital status: Single Current Living Situation: Alone Current Living Situation Comment: [facility] How many Children do You have: 0 Other Information That Helps Us Care for You: No Feels Safe at Home: Yes Safety Concerns: Feels Safe At This Time Assistive Devices: Glasses and Walker Physical Exam Physical Exam: Appears comfortable. Weight unchanged from admission, questionable reliability. BP low normal at 107/67 mmHg. Pulse 83 bpm and regular. Skin: No unusual lesions or ecchymosis. HEENT: Unremarkable. Neck: Jugular venous pulse at the clavicle at 90 with increased "v" waves, carotid with bilateral transmitted murmur. Lungs: Coarse crackles left lung only. No wheezing. No accessory muscle use. Cardiac: regular rhythm with normal S1 and moderately diminished A2. 3/6 systolic ejection murmur at the right upper sternal border radiating to the carotids, left sternal border, and axilla. No diastolic murmur or distinct gall op. Abdomen: Benign. Extremities: Nontender with stasis changes but no current pretibial edema. Intact peripheral pulses. Neurologic: Normal affect and conversation, nonfocal. Results & Data Laboratory Results Troponin initially 76, peak 114, now 45. WBC 12.87, hemoglobin 10.1, normal platelet count. Normal electrolytes, BUN 28, creatinine 1.48 (BUN 28/creatinine 1.35 yesterday). Magnesium was 1.6 yesterday. Diagnostic Findings ECG on admission showed sinus rhythm with first-degree AV block, poor R wave progression. Compared with 12/09/2022 ECG, no significant change. Echocardiogram showed EF 60 to 65% with mild /AI, mild MR, moderate to severe TR. Chest x-ray as noted in HPI. PG Care Time/CCT Total # of Minutes Spent Total Time Spent with Patient: Total time spent is greater than 50% in coordination of care (as documented) at patient's floor/unit and/or counseling patient: Coding Level of Care Code 38635 IN/OBS CONSULT LVL 4,60M Diagnoses SOB (shortness of breath) R06.02 Sepsis due to pneumonia J18.9; A41.9 (HFpEF) heart failure with preserved ejection fraction I50.30 Paroxysmal A-fib I48.0 Hypomagnesemia E83.42 Coronary artery disease involving [place] coronary artery of [place] heart without angina pectoris I25.10 Coronary Disease-Associated Artery/Lesion type: [place] artery [place] vs. transplanted heart: [place] heart Associated angina: without angina S/P CABG x 1 Z95.1 (6) CAD (coronary artery disease) Coronary Disease-Associated Artery/Lesion type: [place] artery [place] vs. transplanted heart: [place] heart Associated angina: without angina Qualified Code(s): I25.10 - Atherosclerotic heart disease of [place] coronary artery without angina pectoris
--- NOTE | 2023-01-30 11:42 | Hospitalist Progress Note ---
Date of Service January 30, 2023 Assessment & Plan (1) Acute on chronic diastolic CHF (congestive heart failure): (2) Sepsis due to pneumonia: Plan Ms. Howard is an 84 year old female that presents today with early signs of sepsis including tachycardia, on and off fevers/chills, without leukocytosis, no hypoxia and is on room air. She reports that her symptoms started on Sunday night and worsened overnight with orthopnea. Sepsis due to pneumonia: Patient presented with shortness of breath and orthopnea. Chest x-ray shows left-sided infiltrates. Procalcitonin 5.71, lactic acid 1.1 Leukocytosis present Continue on ceftriaxone plus azithromycin in ED. Plan to finish 7-day course of ceftriaxone/cefdinir. 3 days of azithromycin. Follow-up on blood culture UA negative Chest x-ray x-ray tomorrow a.m. Acute on Chronic CHF: Resolved BNP 534 Chest x-ray personally reviewed; component of pulmonary edema present Responded well with IV diuretics. Cardiology evaluated the patient; no need for additional diuretics. Cardiology recommends as needed diuretic at discharge. Demand ischemia EKG on admission reviewed; showed sinus rhythm with first-degree AV block. No ST or T wave changes. Patient denies any chest pain High-sensitivity troponin 76 on presentation; up trended and down trended Echocardiogram shows EF of 60 to 65% with mild concentric LVH. Moderate to severe tricuspid regurgitation present. Hypomagnesemia: Magnesium level 1.6 Ordered 2 g magnesium Hypophosphatemia: Serum Phos+ 2.1; ordered Sodium Phos 15 mmol; trend in AM H/O Atrial fibrillation: Chronic stable Takes Eliquis and metoprolol; continue ECG with NSR with first degree AVB QTc: 426 HLD: Chronic stable Takes rosuvastatin; continue Hypothyroidism: Chronic stable Most recent TSH Takes levothyroxine; continue Depression: Chronic stable Takes BuSpar; continue Disposition: PCP: Dr. Flores CODE STATUS: Full code VTE prophylaxis: On Eliquis Time spent evaluating patient, direct bedside care, chart review, placing orders, interpretation of diagnostic studies, discussion with consultants, patient, and family members, as well as other required patient management activities is a 50 minutes Please note the above document was generated using voice recognition software. It may contain grammatical, syntax or spelling errors. Any formal questions or concerns about the content, text or information contained within the body of this dictation should be directly addressed to the provider for clarification Admission and Anticipated Discharge Date Admission Date: January 29, 2023 Subjective Patient seen and examined at bedside. She reports that she slept well last night. Reports that her shortness of breath has slightly improved as well. No complaint of chest pain. Review of Systems 2 Review of Systems: All systems reviewed & are unremarkable except as noted in Subjective Physical Exam Physical Exam: Constitutional: Alert oriented x 3; not in distress. Respiratory: Bilateral crackles present at bases (left greater than right) Cardiovascular: Regular, systolic murmur present, no edema Vessels: JVD not elevated today. Chest: normal inspection of chest Abdomen: normal bowel sounds, soft, nontender, no hepatosplenomegaly Musculoskeletal: no cyanosis or clubbing, extremities motor strength 5/5 Skin: no rashes, warm and dry normal turgor Neurologic: PERRL, EOMI, accommodation nl, no face palsy, no dysarthria CN's II- XI intact bilaterally and moves all extremities Psychiatric: A+Ox3, euthymic affect Results & Data Results & Data Vital Signs (Past 12 Hours) Vital Signs Temp Pulse Pulse Resp BP BP BP 01/30/23 07:22 83 01/30/23 06:19 37.4 C 91 H 16 107/67 01/30/23 03:20 37 C 85 18 118/53 L 01/30/23 01:58 90 01/30/23 01:35 36.5 C 106 H 20 125/67 01/30/23 01:30 01/30/23 00:13 105/58 L 01/30/23 00:13 96 H 16 01/30/23 00:00 86 12 Pulse Ox O2 Del Method 01/30/23 07:22 01/30/23 06:19 94 Room Air 01/30/23 03:20 93 Room Air 01/30/23 01:58 01/30/23 01:35 92 Room Air 01/30/23 01:30 Room Air 01/30/23 00:13 01/30/23 00:13 01/30/23 00:00 Laboratory Results Laboratory Results WBC 12.87 K/ul (4.8-10.8) H 01/30/23 06:10 RBC 3.45 M/uL (4.20-5.40) L 01/30/23 06:10 Hgb 10.1 g/dl (12.0-16.0) L 01/30/23 06:10 Hct 31.0 % (37.0-47.0) L 01/30/23 06:10 MCV 89.9 fL (80.0-100.0) 01/30/23 06:10 MCH 29.3 pg (25.0-34.0) 01/30/23 06:10 MCHC 32.6 g/dL (32.0-36.0) 01/30/23 06:10 RDW Std Deviation 52.8 fL (36.4-46.3) H 01/30/23 06:10 RDW Coeff of Howie 16.0 % (11.5-14.5) H 01/30/23 06:10 Plt Count 130 K/uL (130-400) 01/30/23 06:10 MPV 10.3 fL (9.4-12.4) 01/30/23 06:10 Immature Gran % (Auto) 0.3 % 01/29/23 11:35 Neut % (Auto) 87.0 % 01/29/23 11:35 Lymph % (Auto) 6.7 % 01/29/23 11:35 Lamb % (Auto) 5.6 % 01/29/23 11:35 Eos % (Auto) 0.2 % 01/29/23 11:35 Baso % (Auto) 0.2 % 01/29/23 11:35 Neut # (Auto) 5.72 K/uL (1.40-6.50) 01/29/23 11:35 Lymph # (Auto) 0.44 K/uL (1.20-3.40) L 01/29/23 11:35 Lamb # (Auto) 0.37 K/uL (0.11-0.59) 01/29/23 11:35 Eos # (Auto) 0.01 K/uL (0.00-0.50) 01/29/23 11:35 Baso # (Auto) 0.01 K/uL (0.00-0.20) 01/29/23 11:35 Immature Gran # (Auto) 0.02 K/uL (0.01-0.20) 01/29/23 11:35 Sodium 137 mmol/L (136-145) 01/30/23 06:10 Potassium 3.8 mmol/L (3.5-5.1) 01/30/23 06:10 Chloride 108 mmol/L (98-107) H 01/30/23 06:10 Carbon Dioxide 24 mmol/L (21-32) 01/30/23 06:10 Anion Gap 5 (3-11) 01/30/23 06:10 BUN 28 mg/dl (6-23) H 01/30/23 06:10 Creatinine 1.48 mg/dl (0.6-1.2) H 01/30/23 06:10 Est Cr Clr Drug Dosing 25.3 ml/min 01/30/23 06:10 Est GFR ( Amer) 36.8 ml/min 01/30/23 06:10 Est GFR (Non-Af Amer) 31.7 ml/min 01/30/23 06:10 BUN/Creatinine Ratio 18.9 (10-20) 01/30/23 06:10 Glucose 107 mg/dl (70-99(Fasting)) H 01/30/23 06:10 Lactate 1.1 mmol/L (0.4-2.0) 01/29/23 12:25 Calcium 9.4 mg/dl (8.6-10.3) 01/30/23 06:10 Phosphorus 3.3 mg/dl (2.5-4.9) D 01/30/23 06:10 Magnesium 1.6 mg/dl (1.7-2.4) L 01/29/23 14:58 Total Bilirubin 0.6 mg/dl (0.2-1.0) 01/30/23 06:10 Direct Bilirubin 0.1 mg/dl (0-0.2) 01/29/23 11:35 AST 17 U/L (13-39) 01/30/23 06:10 ALT 10 U/L (7-52) 01/30/23 06:10 Alkaline Phosphatase 42 U/L (34-104) 01/30/23 06:10 Troponin I High Sens 45.5 pg/ml (0-14) H D 01/30/23 06:10 B-Natriuretic Peptide 534 pg/ml (0-100) H 01/29/23 16:09 Total Protein 5.9 gm/dl (6.0-8.3) L 01/30/23 06:10 Albumin 3.3 gm/dl (3.4-5.0) L 01/30/23 06:10 Globulin 2.6 gm/dl (2.5-4.0) 01/30/23 06:10 Albumin/Globulin Ratio 1.3 (0.9-2) 01/30/23 06:10 Procalcitonin 30.75 ng/ml (0-0.5) H 01/30/23 06:10 Urine Color Yellow 01/29/23 17:39 Urine Appearance Clear (Clear) 01/29/23 17:39 Urine pH 5.5 (4.5-7.5) 01/29/23 17:39 Ur Specific [place] 1.020 (1.000-1.030) 01/29/23 17:39 Urine Protein Negative (Negative) 01/29/23 17:39 Urine Glucose (UA) Negative (Negative) 01/29/23 17:39 Urine Ketones Negative (Negative) 01/29/23 17:39 Urine Blood Negative (Negative) 01/29/23 17:39 Urine Nitrite Negative (Negative) 01/29/23 17:39 Urine Bilirubin Negative (Negative) 01/29/23 17:39 Urine Urobilinogen Negative (Negative) 01/29/23 17:39 Ur Leukocyte Esterase Negative (Negative) 01/29/23 17:39 Urine WBC (Auto) 1-5 /hpf (0-5) 01/29/23 12:14 Urine RBC (Auto) 10-30 /hpf (0-4) H 01/29/23 12:14 U Hyaline Cast (Auto) 0 /lpf (0-5) 01/29/23 12:14 U Epithel Cells (Auto) 10-20 /lpf (0-5) H 01/29/23 12:14 Urine Bacteria (Auto) Negative (Negative) 01/29/23 12:14 Adenovirus (PCR) Not Detected (NotDetected) 01/29/23 11:50 B. pertussis DNA (PCR) Not Detected (NotDetected) 01/29/23 11:50 B.parapertussis DNA PCR Not Detected (NotDetected) 01/29/23 11:50 C. pneumoniae DNA (PCR) Not Detected (NotDetected) 01/29/23 11:50 Coronavirus OC43 (PCR) Not Detected (NotDetected) 01/29/23 11:50 Coronavirus HKU1 (PCR) Not Detected (NotDetected) 01/29/23 11:50 Coronavirus 229E (PCR) Not Detected (NotDetected) 01/29/23 11:50 SARS-CoV-2 (PCR) Not Detected (NotDetected) 01/29/23 11:50 Coronavirus NL63 (PCR) Not Detected (NotDetected) 01/29/23 11:50 Human Metapneumovir PCR Not Detected (NotDetected) 01/29/23 11:50 Influenza Type A (PCR) Not Detected (NotDetected) 01/29/23 11:50 Influenza Type B (PCR) Not Detected (NotDetected) 01/29/23 11:50 M. pneumoniae (PCR) Not Detected (NotDetected) 01/29/23 11:50 Parainfluenza 1 (PCR) Not Detected (NotDetected) 01/29/23 11:50 Parainfluenza 2 (PCR) Not Detected (NotDetected) 01/29/23 11:50 Parainfluenza 3 (PCR) Not Detected (NotDetected) 01/29/23 11:50 Parainfluenza 4 (PCR) Not Detected (NotDetected) 01/29/23 11:50 RSV (PCR) Not Detected (NotDetected) 01/29/23 11:50 Entero/Rhino (PCR) Not Detected (NotDetected) 01/29/23 11:50 Impressions Chest X-Ray 01/29/23 11:40 XR chest 1V portable HISTORY: 84 years-old Female Sepsis acute sepsis COMPARISON: 12/07/2022 TECHNIQUE: AP view of the chest FINDINGS: Sternotomy wires. Cardiac silhouette is enlarged. Mixed interstitial and alveolar opacities throughout the left lung. Small left pleural effusion. Pulmonary vascular congestion. The right lung is otherwise generally clear. Bilateral shoulder arthroplasties. IMPRESSION: 1. Cardiomegaly with pulmonary vascular congestion. 2. Mixed interstitial and alveolar opacities throughout the left lung suggestive of asymmetric pulmonary edema versus pneumonia. 3. Small left pleural effusion. ACT 112: Negative or not required by law. The above report was generated using voice recognition software. It may contain grammatical, syntax or spelling errors. Electronically signed by: Phil Davis M.D. 01/29/2023 12:58 PM
[2023-01-30] MEDS ORDERED: INFLUENZA VACCINE HIGH-DOSE (HD-IIV4) PF 65+ 0.7mL SYR IM ONE (12:00)
[2023-01-30] MEDS: AZITHROMYCIN 500 MG in DEXTROSE 5% 250 ML IV SCH (15:20)
[2023-01-30] MEDS: ACETAMINOPHEN 325 MG TAB PO PRN (16:45)
[2023-01-30] MEDS: ONDANSETRON INJ 2 MG/ML 2 ML VIAL IV PRN (16:46)
[2023-01-30] MEDS: ROSUVASTATIN CALCIUM 10 MG TAB PO SCH (20:38)
[2023-01-30] MEDS ORDERED: ZOLPIDEM TARTRATE 5 MG TAB PO STA (22:43)
[2023-01-31] MEDS: LEVOTHYROXINE SODIUM 100 MCG TABLET PO SCH (06:31)
[2023-01-31 07:02] LABS: Basophils # (auto) 0.04 K/uL (0.00-0.20); Basophils % (auto) 0.4 %; Eosinophils # (auto) 0.35 K/uL (0.00-0.50); Eosinophils % (auto) 3.9 %; Hematocrit (blood only) 31.8 % (37.0-47.0); Hemoglobin 10.4 g/dl (12.0-16.0); Immature Granulocytes # (auto) 0.03 K/uL (0.01-0.20); Immature Granulocytes % (auto) 0.3 %; Lymphocytes # (auto) 1.61 K/uL (1.20-3.40); Lymphocytes % (auto) 17.8 %; Mean Corpuscular Hemoglobin 29.5 pg (25.0-34.0); Mean Corpuscular Hgb Conc 32.7 g/dL (32.0-36.0); Mean Corpuscular Volume 90.1 fL (80.0-100.0); Mean Platelet Volume 10.2 fL (9.4-12.4); Monocytes # (auto) 0.69 K/uL (0.11-0.59); Monocytes % (auto) 7.6 %; Neutrophils # (auto) 6.34 K/uL (1.40-6.50); Platelet Count 146 K/uL (130-400); RDW Coefficient of Variation 15.9 % (11.5-14.5); RDW Standard Deviation 52.6 fL (36.4-46.3); Red Blood Count 3.53 M/uL (4.20-5.40); White Blood Count 9.06 K/ul (4.8-10.8)
[2023-01-31 07:26] LABS: BUN Creatinine Ratio 18.9 (10-20); Calcium 9.9 mg/dl (8.6-10.3); Creatinine Clr Calc Pharmacy 22.7 ml/min; Est GFR (African American) 32.5 ml/min; Potassium 4.1 mmol/L (3.5-5.1)
[2023-01-31] MEDS: guaiFENesin 600 MG TABCR PO SCH ×2 (08:00→20:22)
[2023-01-31] MEDS: METOPROLOL SUCC 50MG EXT REL TAB PO SCH (08:00)
[2023-01-31] MEDS: APIXABAN 5 MG TABLET PO SCH ×2 (08:00→20:21)
[2023-01-31] MEDS: CALCITRIOL 0.25 MCG CAPSULE PO SCH (08:00)
[2023-01-31] MEDS: GABAPENTIN 300 MG CAP PO SCH ×2 (08:00→20:23)
[2023-01-31] MEDS: PANTOprazole 40 MG TAB PO SCH ×2 (08:00→20:21)
[2023-01-31] MEDS: busPIRone 5 MG TAB PO SCH ×2 (08:00→20:21)
[2023-01-31] MEDS: ACETAMINOPHEN 325 MG TAB PO PRN (08:05)
--- NOTE | 2023-01-31 09:35 | XRay Report ---
XR chest 2V PA/lateral CLINICAL HISTORY: Follow up on pulmonary edema. COMPARISON STUDY: Chest CT December 01, 2021. Chest radiograph January 29, 2023. FINDINGS: Bilateral shoulder arthroplasties are incidentally noted. There are median sternotomy wires . There is cardiomegaly. A hiatal hernia is present. Asymmetric interstitial thickening and left lung airspace opacities have moderately improved since prior exam. There is no pneumothorax. No pleural e ffusion is identified. IMPRESSION: Moderate improvement in asymmetric airspace opacities and interstitial thickening within the left lung. The findings could reflect asymmetric pulmonary edema or pneumonia. ACT 112: Negative or not required by law. Electronically signed by: Anthony Borden M.D. 01/31/2023 9:33 AM
[2023-01-31] MEDS: cefTRIAXone SODIUM 2,000 MG in DEXTROSE 5 % MINI-B 50 ML IV SCH (11:35)
[2023-01-31] MEDS: AZITHROMYCIN 500 MG in DEXTROSE 5% 250 ML IV SCH (14:32)
[2023-01-31] MEDS: ADVANCED PROBIOTIC 1250 MG CAPSULE PO SCH (15:34)
[2023-01-31] MEDS: AZITHROMYCIN 250 MG TAB PO SCH (18:04)
--- NOTE | 2023-01-31 18:25 | Hospitalist Progress Note ---
Date of Service January 31, 2023 Assessment & Plan (1) Acute on chronic diastolic CHF (congestive heart failure): (2) Sepsis due to pneumonia: Plan Ms. Howard is an 84 year old female that presents today with early signs of sepsis including tachycardia, on and off fevers/chills, without leukocytosis, no hypoxia and is on room air. She reports that her symptoms started on Sunday night and worsened overnight with orthopnea. Sepsis due to pneumonia: Patient presented with shortness of breath and orthopnea. Chest x-ray shows left-sided infiltrates. Procalcitonin 5.71, lactic acid 1.1 Leukocytosis present Blood cultures negative to date Continue on ceftriaxone plus azithromycin in ED. Plan to finish 7-day course of antibiotics Repeat chest x-ray today showed improved airspace opacities, interstitial thickening. Acute on Chronic CHF: Resolved BNP 534 Chest x-ray personally reviewed; component of pulmonary edema present Responded well with IV diuretics. Cardiology evaluated the patient; no need for additional diuretics. Cardiology recommends as needed diuretic at discharge. Demand ischemia EKG on admission reviewed; showed sinus rhythm with first-degree AV block. No ST or T wave changes. Patient denies any chest pain High-sensitivity troponin 76 on presentation; up trended and down trended Echocardiogram shows EF of 60 to 65% with mild concentric LVH. Moderate to severe tricuspid regurgitation present. Diarrhea Stool for C. difficile pending Likely due to antibiotics If stool for C. difficile negative, will add Imodium Added probiotics Hypophosphatemia Hypomagnesemia Replace electrolytes as needed Monitor H/O Atrial fibrillation: Chronic stable Takes Eliquis and metoprolol; continue ECG with NSR with first degree AVB QTc: 426 HLD: Chronic stable Takes rosuvastatin; continue Hypothyroidism: Chronic stable Most recent TSH Takes levothyroxine; continue Depression: Chronic stable Takes BuSpar; continue DVT Px: Eliquis CODE STATUS: Full code Admission and Anticipated Discharge Date Admission Date: January 29, 2023 Subjective Patient is seen and examined at bedside States having generalized weakness Also reports some cough, chest discomfort and dyspnea with cough No other complaints CXR today showed moderate improvement in airspace opacities 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 of Systems Review of Systems: All systems reviewed & are unremarkable except as noted in Subjective Physical Exam Physical Exam: Physical Exam: Vitals signs as noted above General Appearance:Moderately built and nourished, no apparent distress, Elderly Head: normocephalic, Atraumatic Eyes: normal inspection, EOMI Neck: supple, Trachea midline Respiratory/Chest: Normal breath sounds, B/L minimal crackles, No accessory muscle use Cardiovascular: S1, S2, + murmur Abdomen/GI:Soft, Non tender, Bowel sounds present Extremities/Musculoskeletal:normal inspection, Trace pedal edema Neurologic/Psych:AAOX3, grossly no focal neurological deficits Skin: normal color, warm Results & Data Results & Data Vital Signs (Past 12 Hours) Vital Signs Temp Pulse Pulse Resp BP Pulse Ox O2 Del Method 01/31/23 15:26 36.6 C 75 20 114/78 96 Room Air 01/31/23 15:09 77 01/31/23 11:20 36.6 C 81 20 110/72 93 Room Air 01/31/23 09:54 Room Air 01/31/23 07:36 37.3 C 105 H 20 148/80 H 94 Room Air 01/31/23 07:10 78 Laboratory Results Short CBC 01/31/23 Range/Units 06:33 WBC 9.06 (4.8-10.8) K/ul Hgb 10.4 L (12.0-16.0) g/dl Hct 31.8 L (37.0-47.0) % Plt Count 146 (130-400) K/uL BMP 01/31/23 06:33 Sodium 138 Potassium 4.1 Chloride 107 Carbon Dioxide 25 BUN 31 H Creatinine 1.64 H Glucose 98 Calcium 9.9
[2023-01-31] MEDS: ROSUVASTATIN CALCIUM 10 MG TAB PO SCH (20:22)
[2023-01-31] MEDS: ZOLPIDEM TARTRATE 5 MG TAB PO PRN (22:50)
[2023-01-31] MEDS: LOPERAMIDE HCL 2 MG CAP PO PRN (22:50)
[2023-02-01] MEDS: LEVOTHYROXINE SODIUM 100 MCG TABLET PO SCH (06:32)
[2023-02-01 08:03] LABS: Hematocrit (blood only) 33.1 % (37.0-47.0); Hemoglobin 10.7 g/dl (12.0-16.0); Mean Corpuscular Hgb Conc 32.3 g/dL (32.0-36.0); Mean Corpuscular Volume 89.7 fL (80.0-100.0); Mean Platelet Volume 10.7 fL (9.4-12.4); Platelet Count 171 K/uL (130-400); RDW Coefficient of Variation 15.7 % (11.5-14.5); RDW Standard Deviation 51.5 fL (36.4-46.3); Red Blood Count 3.69 M/uL (4.20-5.40); White Blood Count 6.73 K/ul (4.8-10.8)
[2023-02-01 08:24] LABS: BUN Creatinine Ratio 22.5 (10-20); Calcium 10.1 mg/dl (8.6-10.3); Creatinine Clr Calc Pharmacy 28.9 ml/min; Est GFR (African American) 43.4 ml/min; Est GFR (Non-African American) 37.5 ml/min; Magnesium 2.1 mg/dl (1.7-2.4); Phosphorus 3.2 mg/dl (2.5-4.9); Potassium 4.2 mmol/L (3.5-5.1)
[2023-02-01] MEDS: ADVANCED PROBIOTIC 1250 MG CAPSULE PO SCH (08:35)
[2023-02-01] MEDS: busPIRone 5 MG TAB PO SCH ×2 (08:35→20:34)
[2023-02-01] MEDS: guaiFENesin 600 MG TABCR PO SCH ×2 (08:35→20:33)
[2023-02-01] MEDS: AZITHROMYCIN 250 MG TAB PO SCH (08:35)
[2023-02-01] MEDS: APIXABAN 5 MG TABLET PO SCH ×2 (08:35→20:32)
[2023-02-01] MEDS: PANTOprazole 40 MG TAB PO SCH ×2 (08:35→20:34)
[2023-02-01] MEDS: GABAPENTIN 300 MG CAP PO SCH ×2 (08:35→20:33)
[2023-02-01] MEDS: METOPROLOL SUCC 50MG EXT REL TAB PO SCH (08:35)
[2023-02-01] MEDS: ONDANSETRON INJ 2 MG/ML 2 ML VIAL IV PRN ×2 (09:58→16:14)
[2023-02-01] MEDS ORDERED: FUROSEMIDE INJ 20 MG/2 ML VIAL IV ONE (10:59)
[2023-02-01] MEDS: cefTRIAXone SODIUM 2,000 MG in DEXTROSE 5 % MINI-B 50 ML IV SCH (11:14)
--- NOTE | 2023-02-01 12:34 | Cardiology Progress Note ---
Date of Service February 01, 2023 Assessment & Plan (1) SOB (shortness of breath): (2) Bronchospasm: (3) Sepsis due to pneumonia: (4) (HFpEF) heart failure with preserved ejection fraction: (5) Paroxysmal A-fib: (6) Hypomagnesemia: (7) CAD (coronary artery disease): (8) S/P CABG x 1: Plan Persistent dyspnea on exertion, with an element of bronchospasm on exam. She does not appear volume overloaded. Consider inhaled corticosteroids/Xopenex for bronchospasm. Would only restart diuretic if respiratory status deteriorates and/or evidence of volume retention (weight gain, edema, etc.). Rhythm remains sinus, no evidence of recurrent atrial fibrillation. No change in daily metoprolol and apixaban anticoagulation. No evidence of ongoing myocardial ischemia. Please contact Dr. Qureshi tomorrow if any further cardiac issues arise. Admission and Anticipated Discharge Date Admission Date: January 29, 2023 Subjective She continues to note dyspnea with minor exertion. No symptoms at rest. No chest pain, palpitations, lightheadedness. No orthopnea, PND, or leg edema. She has been off diuretics for the past 2 days. Telemetry showed sinus rhythm at 70 to 80 bpm with sporadic atrial ectopy. No dysrhythmias. Physical Exam Physical Exam: Appears comfortable. Weight unchanged. BP normotensive. Pulse 86 bpm and regular. Respirations 20 but unlabored. Skin: No unusual lesions or ecchymosis. HEENT: Unremarkable. Neck: Jugular venous pulse just above the clavicle at 90 with increased "v" waves, carotid with bilateral transmitted murmur. Lungs: Mildly decreased breath sounds, few crackles left greater than right, audible wheezing on forced exhalation only. No accessory muscle use. Cardiac: regular rhythm with normal S1 and moderately diminished A2. 2/6 systolic ejection murmur at the right upper sternal border radiating to the carotids, left sternal border, and axilla. No diastolic murmur or distinct gallop. Abdomen: Benign. Extremities: Nontender with stasis changes but no current pretibial edema. Intact peripheral pulses. Neurologic: Normal affect and conversation, nonfocal. Results & Data Laboratory Results Normal electrolytes, BUN 29, creatinine 1.29 (BUN/creatinine 31/1.64 yesterday). WBC normal, hemoglobin stable, normal platelet count. Diagnostic Findings Chest x-ray yesterday showed improving predominantly left-sided infiltrate. PG Care Time/CCT Total # of Minutes Spent Total Time Spent with Patient: Total time spent is greater than 50% in coordination of care (as documented) at patient's floor/unit and/or counseling patient: Coding Level of Care Code 80171 SUB INP/OBS CARE 3/50MIN Diagnoses SOB (shortness of breath) R06.02 Bronchospasm J98.01 Sepsis due to pneumonia J18.9; A41.9 (HFpEF) heart failure with preserved ejection fraction I50.30 Paroxysmal A-fib I48.0 Hypomagnesemia E83.42 Coronary artery disease involving [place] coronary artery of ely [place] heart without angina pectoris I25.10 Coronary Disease-Associated Artery/Lesion type: ely [place] artery [place] vs. transplanted heart: [place] heart Associated angina: without angina S/P CABG x 1 Z95.1 (7) CAD (coronary artery disease) Coronary Disease-Associated Artery/Lesion type: [place] artery [place] vs. transplanted heart: [place] heart Associated angina: without angina Qualified Code(s): I25.10 - Atherosclerotic heart disease of [place] coronary artery without angina pectoris
[2023-02-01] MEDS: ACETAMINOPHEN 325 MG TAB PO PRN (13:43)
[2023-02-01] MEDS ORDERED: LEVALBUTEROL HCL 0.63 MG/3 ML NEB NEB STA (13:50)
--- NOTE | 2023-02-01 16:06 | Hospitalist Progress Note ---
Date of Service February 01, 2023 Assessment & Plan (1) Acute on chronic diastolic CHF (congestive heart failure): (2) Sepsis due to pneumonia: Plan Ms. Howard is an 84 year old female that presents today with early signs of sepsis including tachycardia, on and off fevers/chills, without leukocytosis, no hypoxia and is on room air. She reports that her symptoms started on Sunday night and worsened overnight with orthopnea. Sepsis due to pneumonia: Patient presented with shortness of breath and orthopnea. Chest x-ray shows left-sided infiltrates. Procalcitonin 5.71, lactic acid 1.1 Leukocytosis resolved Blood cultures negative to date Continue on ceftriaxone plus azithromycin in ED. Plan to finish 7-day course of antibiotics Repeat chest x-ray showed improved airspace opacities, interstitial thickening. Slowly improving Nebs as needed Likely discharge in 1 to 2 days Acute on Chronic CHF: Resolved BNP 534 Chest x-ray personally reviewed; component of pulmonary edema present Responded well with IV diuretics. Cardiology evaluated the patient; no need for additional diuretics. Cardiology recommends as needed diuretic at discharge. Demand ischemia EKG on admission reviewed; showed sinus rhythm with first-degree AV block. No ST or T wave changes. Patient denies any chest pain High-sensitivity troponin 76 on presentation; up trended and down trended Echocardiogram shows EF of 60 to 65% with mild concentric LVH. Moderate to severe tricuspid regurgitation present. Diarrhea Stool for C. difficile negative Likely due to antibiotics Imodium as needed Added probiotics Hypophosphatemia Hypomagnesemia Replace electrolytes as needed Monitor H/O Atrial fibrillation: Chronic stable Takes Eliquis and metoprolol; continue ECG with NSR with first degree AVB QTc: 426 HLD: Chronic stable Takes rosuvastatin; continue Hypothyroidism: Chronic stable Most recent TSH Takes levothyroxine; continue Depression: Chronic stable Takes BuSpar; continue DVT Px: Eliquis CODE STATUS: Full code Admission and Anticipated Discharge Date Admission Date: January 29, 2023 Subjective Patient is seen and examined at bedside Less cough today Still has some dyspnea on exertion Reports 2 loose BMs today No other complaints Review of Systems Review of Systems: All systems reviewed & are unremarkable except as noted in Subjective Physical Exam Physical Exam: Physical Exam: Vitals signs as noted above General Appearance:Moderately built and nourished, no apparent distress, Elderly Head: normocephalic, Atraumatic Eyes: normal inspection, EOMI Neck: supple, Trachea midline Respiratory/Chest: Decreased breath sounds, scattered crackles, No accessory muscle use Cardiovascular: S1, S2, + murmur Abdomen/GI:Soft, Non tender, Bowel sounds present Extremities/Musculoskeletal:normal inspection, Trace pedal edema Neurologic/Psych:AAOX3, grossly no focal neurological deficits Skin: normal color, warm Results & Data Results & Data Vital Signs (Past 12 Hours) Vital Signs Temp Pulse Pulse Resp BP Pulse Ox Pulse Ox 02/01/23 15:16 36.7 C 90 20 117/77 96 02/01/23 14:51 88 02/01/23 14:00 97 02/01/23 14:00 69 18 95 02/01/23 11:24 36.3 C L 86 20 131/83 96 02/01/23 11:00 95 02/01/23 10:20 02/01/23 07:44 36.8 C 73 20 162/59 H 94 02/01/23 07:04 73 O2 Del Method O2 Del Method 02/01/23 15:16 Room Air 02/01/23 14:51 02/01/23 14:00 Room Air 02/01/23 14:00 Room Air 02/01/23 11:24 Room Air 02/01/23 11:00 Room Air 02/01/23 10:20 Room Air 02/01/23 07:44 Room Air 02/01/23 07:04 Laboratory Results Short CBC 02/01/23 Range/Units 07:20 WBC 6.73 (4.8-10.8) K/ul Hgb 10.7 L (12.0-16.0) g/dl Hct 33.1 L (37.0-47.0) % Plt Count 171 (130-400) K/uL BMP 02/01/23 07:20 Sodium 139 Potassium 4.2 Chloride 108 H Carbon Dioxide 26 BUN 29 H Creatinine 1.29 H D Glucose 89 Calcium 10.1
[2023-02-01] MEDS ORDERED: LEVALBUTEROL HCL 0.63 MG/3 ML NEB NEB PRN (19:00)
[2023-02-01] MEDS: LOPERAMIDE HCL 2 MG CAP PO PRN (20:32)
[2023-02-01] MEDS: ROSUVASTATIN CALCIUM 10 MG TAB PO SCH (20:34)
[2023-02-01] MEDS: ZOLPIDEM TARTRATE 5 MG TAB PO PRN (22:05)
[2023-02-02] MEDS: LEVOTHYROXINE SODIUM 100 MCG TABLET PO SCH (05:45)
[2023-02-02 07:34] LABS: BUN Creatinine Ratio 20.8 (10-20); Calcium 10.3 mg/dl (8.6-10.3); Creatinine Clr Calc Pharmacy 25.8 ml/min; Est GFR (Non-African American) 32.8 ml/min; Potassium 4.2 mmol/L (3.5-5.1)
[2023-02-02] MEDS: LOPERAMIDE HCL 2 MG CAP PO PRN (07:56)
[2023-02-02] MEDS: ONDANSETRON INJ 2 MG/ML 2 ML VIAL IV PRN (08:00)
[2023-02-02] MEDS: PANTOprazole 40 MG TAB PO SCH (09:03)
[2023-02-02] MEDS: ADVANCED PROBIOTIC 1250 MG CAPSULE PO SCH (09:03)
[2023-02-02] MEDS: AZITHROMYCIN 250 MG TAB PO SCH (09:03)
[2023-02-02] MEDS: METOPROLOL SUCC 50MG EXT REL TAB PO SCH (09:03)
[2023-02-02] MEDS: guaiFENesin 600 MG TABCR PO SCH (09:04)
[2023-02-02] MEDS: APIXABAN 5 MG TABLET PO SCH (09:04)
[2023-02-02] MEDS: GABAPENTIN 300 MG CAP PO SCH (09:04)
[2023-02-02] MEDS: busPIRone 5 MG TAB PO SCH (09:04)
[2023-02-02] MEDS: CALCITRIOL 0.25 MCG CAPSULE PO SCH (09:04)
--- NOTE | 2023-02-02 12:30 | Hospitalist Progress Note ---
Date of Service February 02, 2023 Assessment & Plan (1) Acute on chronic diastolic CHF (congestive heart failure): (2) Sepsis due to pneumonia: Plan Ms. Howard is an 84 year old female that presents today with early signs of sepsis including tachycardia, on and off fevers/chills, without leukocytosis, no hypoxia and is on room air. She reports that her symptoms started on Sunday night and worsened overnight with orthopnea. Sepsis due to pneumonia: Patient presented with shortness of breath and orthopnea. Chest x-ray shows left-sided infiltrates. Procalcitonin 5.71, lactic acid 1.1 Leukocytosis resolved Blood cultures negative to date Continue on ceftriaxone plus azithromycin in ED. Plan to finish 7-day course of antibiotics Repeat chest x-ray showed improved airspace opacities, interstitial thickening. Clinically improved Transition to p.o. antibiotics upon discharge Plan to discharge home today Acute on Chronic CHF: Resolved BNP 534 Chest x-ray personally reviewed; component of pulmonary edema present Responded well with IV diuretics. Cardiology evaluated the patient; no need for additional diuretics. Cardiology recommends as needed diuretic at discharge. Demand ischemia EKG on admission reviewed; showed sinus rhythm with first-degree AV block. No ST or T wave changes. Patient denies any chest pain High-sensitivity troponin 76 on presentation; up trended and down trended Echocardiogram shows EF of 60 to 65% with mild concentric LVH. Moderate to severe tricuspid regurgitation present. Diarrhea Stool for C. difficile negative Likely due to antibiotics Imodium as needed Added probiotics Improved Hypophosphatemia Hypomagnesemia Replace electrolytes as needed Monitor H/O Atrial fibrillation: Chronic stable Takes Eliquis and metoprolol; continue ECG with NSR with first degree AVB QTc: 426 HLD: Chronic stable Takes rosuvastatin; continue Hypothyroidism: Chronic stable Most recent TSH Takes levothyroxine; continue Depression: Chronic stable Takes BuSpar; continue DVT Px: Eliquis CODE STATUS: Full code Disposition Home with home health Admission and Anticipated Discharge Date Admission Date: January 29, 2023 Subjective Patient is seen and examined at bedside Doing well today No new complaints Denies any chest pain, dyspnea, dizziness, nausea, vomiting, abdominal pain Cough much improved Plan to be discharged home today Review of Systems Review of Systems: All systems reviewed & are unremarkable except as noted in Subjective Physical Exam Physical Exam: Physical Exam: Vitals signs as noted above General Appearance:Moderately built and nourished, no apparent distress, Elderly Head: normocephalic, Atraumatic Eyes: normal inspection, EOMI Neck: supple, Trachea midline Respiratory/Chest: Decreased breath sounds, scattered crackles, No accessory muscle use Cardiovascular: S1, S2, + murmur Abdomen/GI:Soft, Non tender, Bowel sounds present Extremities/Musculoskeletal:normal inspection, Trace pedal edema Neurologic/Psych:AAOX3, grossly no focal neurological deficits Skin: normal color, warm Results & Data Results & Data Vital Signs (Past 12 Hours) Vital Signs Temp Pulse Pulse Pulse Resp BP BP 02/02/23 11:30 36.3 C L 88 16 107/76 02/02/23 08:00 02/02/23 07:40 36.9 C 89 17 155/85 H 02/02/23 06:00 82 02/02/23 04:07 36.6 C 84 18 147/85 H Pulse Ox O2 Del Method 02/02/23 11:30 98 Room Air 02/02/23 08:00 Room Air 02/02/23 07:40 95 Room Air 02/02/23 06:00 02/02/23 04:07 95 Room Air Laboratory Results BMP 02/02/23 06:42 Sodium 138 Potassium 4.2 Chloride 106 Carbon Dioxide 24 BUN 30 H Creatinine 1.44 H Glucose 90 Calcium 10.3
--- NOTE | 2023-02-02 12:45 | Discharge Summary ---
Date of Service February 02, 2023 Admission HPI Per Admitting Provider Ms. Howard is an 84 year old female that presents today with early signs of sepsis including tachycardia, on and off fevers/chills, without leukocytosis, no hypoxia and is on room air. She reports that her symptoms started on Sunday night and worsened overnight with orthopnea. She had ahard time getting up from bed to go to the bathroom due to weakness. Here in the ED, chest x-ray suggestive of pneumonia patient was started on ceftriaxone and azithromycin along with receiving 1LNSB. No leukocytosis, procalcitonin elevated 5.71, bio fire negative, lactic acid 1.1, troponin 76 which is up from her b aseline which is typically in the 20s; no ischemic changes on ECG and suspect related to ischemic demand rather than ACS. Creatinine 1.35; baseline 1.2-1.7. Phosphorus level 2.1, Mg+ 1.6. Patient was admitted to [facility] 12/07-12/12 for hypercalcemia, nausea, vomiting likely related to her hiatal hernia. PMH includes: Atrial Fibrillation (On Eliquis),HFpEF, history of TIA, CAD, CKD stage III, hypothyroidism, depression, and GERD. Pt reports that she has a cardiac murmur since she was 3 years old after having rheumatic fever. She has never had cardiac intervention for this. Most recent ECHO 11/2022 EF 55-59%, LV wall motion normal, Mild aortic stenosis, trace pulmonic valve regurgitation, mild MR/TR. Pt denies COLBERT, dizziness, SOB, chest pain, abdominal pain or tenderness, visual or auditory changes, recent falls or trauma. Suspect patient is experiencing early signs of sepsis with pneumonia with component of acute on chronic heart failure. Will continue IV antibiotic eddie tment, replace electrolytes and and will trend procalcitonin, troponin along with supportive treatment including ISB and Mucinex. For completeness we will obtain sputum and blood cultures. Patient will be admitted for further evaluation management. Please see A/P for further details. Admission Exam Per Admitting Provider Neuro: AAOx4, PERRLA, no aphagia, memory changes, CNII-XII grossly intact HEENT: head normocephalic, moist mucus membranes CV: S1/S2, (+) M LSB (-)G/R, (-) edema, cap refill < 3 seconds Resp: Lungs course in bases. On RA GI: Abdomen S/NT/ND, Ax4 bowel sounds, (-) CVA tenderness Musculoskeletal: 5/5 B/L UE strength, 4/5 B/L LE strength. (+) weakness Skin: (-) rashes , (-) erythema. (+) small petechiae on bilateral LE that she claims to be chronic. Psych: euthymic mood Principal Diagnosis Sepsis Pneumonia Acute on chronic diastolic CHF Discharge Data Allergies Allergy/AdvReac Type Severity Reaction Status Date / Time nitroglycerin AdvReac Severe "PROJECTILE Verified 01/29/23 15:15 VOMITTING" ergotamine AdvReac Intermediate vomiting Verified 01/29/23 15:15 Consultations 01/29/23 14:02 ED Decision to Admit Stat 01/30/23 08:00 Consult Cardiology Routine Procedures Performed Laboratory Results WBC 6.73 K/ul (4.8-10.8) 02/01/23 07:20 RBC 3.69 M/uL (4.20-5.40) L 02/01/23 07:20 Hgb 10.7 g/dl (12.0-16.0) L 02/01/23 07:20 Hct 33.1 % (37.0-47.0) L 02/01/23 07:20 MCV 89.7 fL (80.0-100.0) 02/01/23 07:20 MCH 29.0 pg (25.0-34.0) 02/01/23 07:20 MCHC 32.3 g/dL (32.0-36.0) 02/01/23 07:20 RDW Std Deviation 51.5 fL (36.4-46.3) H 02/01/23 07:20 RDW Coeff of Howie 15.7 % (11.5-14.5) H 02/01/23 07:20 Plt Count 171 K/uL (130-400) 02/01/23 07:20 MPV 10.7 fL (9.4-12.4) 02/01/23 07:20 Immature Gran % (Auto) 0.3 % 01/31/23 06:33 Neut % (Auto) 70.0 % 01/31/23 06:33 Lymph % (Auto) 17.8 % 01/31/23 06:33 Perkins % (Auto) 7.6 % 01/31/23 06:33 Eos % (Auto) 3.9 % 01/31/23 06:33 Baso % (Auto) 0.4 % 01/31/23 06:33 Neut # (Auto) 6.34 K/uL (1.40-6.50) 01/31/23 06:33 Lymph # (Auto) 1.61 K/uL (1.20-3.40) 01/31/23 06:33 Perkins # (Auto) 0.69 K/uL (0.11-0.59) H 01/31/23 06:33 Eos # (Auto) 0.35 K/uL (0.00-0.50) 01/31/23 06:33 Baso # (Auto) 0.04 K/uL (0.00-0.20) 01/31/23 06:33 Immature Gran # (Auto) 0.03 K/uL (0.01-0.20) 01/31/23 06:33 Sodium 138 mmol/L (136-145) 02/02/23 06:42 Potassium 4.2 mmol/L (3.5-5.1) 02/02/23 06:42 Chloride 106 mmol/L (98-107) 02/02/23 06:42 Carbon Dioxide 24 mmol/L (21-32) 02/02/23 06:42 Anion Gap 8 (3-11) 02/02/23 06:42 BUN 30 mg/dl (6-23) H 02/02/23 06:42 Creatinine 1.44 mg/dl (0.6-1.2) H 02/02/23 06:42 Est Cr Clr Drug Dosing 25.8 ml/min 02/02/23 06:42 Est GFR ( Amer) 38.0 ml/min 02/02/23 06:42 Est GFR (Non-Af Amer) 32.8 ml/min 02/02/23 06:42 BUN/Creatinine Ratio 20.8 (10-20) H 02/02/23 06:42 Glucose 90 mg/dl (70-99(Fasting)) 02/02/23 06:42 Lactate 1.1 mmol/L (0.4-2.0) 01/29/23 12:25 Calcium 10.3 mg/dl (8.6-10.3) 12/15/23 06:42 Phosphorus 3.2 mg/dl (2.5-4.9) 02/01/23 07:20 Magnesium 2.1 mg/dl (1.7-2.4) 02/01/23 07:20 Total Bilirubin 0.6 mg/dl (0.2-1.0) 01/30/23 06:10 Direct Bilirubin 0.1 mg/dl (0-0.2) 01/29/23 11:35 AST 17 U/L (13-39) 01/30/23 06:10 ALT 10 U/L (7-52) 01/30/23 06:10 Alkaline Phosphatase 42 U/L (34-104) 01/30/23 06:10 Troponin I High Sens 45.5 pg/ml (0-14) H D 01/30/23 06:10 B-Natriuretic Peptide 534 pg/ml (0-100) H 01/29/23 16:09 Total Protein 5.9 gm/dl (6.0-8.3) L 01/30/23 06:10 Albumin 3.3 gm/dl (3.4-5.0) L 01/30/23 06:10 Globulin 2.6 gm/dl (2.5-4.0) 01/30/23 06:10 Albumin/Globulin Ratio 1.3 (0.9-2) 01/30/23 06:10 Procalcitonin 9.57 ng/ml (0-0.5) H 02/01/23 07:20 Urine Color Yellow 01/29/23 17:39 Urine Appearance Clear (Clear) 01/29/23 17:39 Urine pH 5.5 (4.5-7.5) 01/29/23 17:39 Ur Specific [place] 1.020 (1.000-1.030) 01/29/23 17:39 Urine Protein Negative (Negative) 01/29/23 17:39 Urine Glucose (UA) Negative (Negative) 01/29/23 17:39 Urine Ketones Negative (Negative) 01/29/23 17:39 Urine Blood Negative (Negative) 01/29/23 17:39 Urine Nitrite Negative (Negative) 01/29/23 17:39 Urine Bilirubin Negative (Negative) 01/29/23 17:39 Urine Urobilinogen Negative (Negative) 01/29/23 17:39 Ur Leukocyte Esterase Negative (Negative) 01/29/23 17:39 Urine WBC (Auto) 1-5 /hpf (0-5) 01/29/23 12:14 Urine RBC (Auto) 10-30 /hpf (0-4) H 01/29/23 12:14 U Hyaline Cast (Auto) 0 /lpf (0-5) 01/29/23 12:14 U Epithel Cells (Auto) 10-20 /lpf (0-5) H 01/29/23 12:14 Urine Bacteria (Auto) Negative (Negative) 01/29/23 12:14 Stl C. diff Tox B Gene Negative Cdiff Gene (Neg) 01/31/23 19:20 Adenovirus (PCR) Not Detected (NotDetected) 01/29/23 11:50 B. pertussis DNA (PCR) Not Detected (NotDetected) 01/29/23 11:50 B.parapertussis DNA PCR Not Detected (NotDetected) 01/29/23 11:50 C. pneumoniae DNA (PCR) Not Detected (NotDetected) 01/29/23 11:50 Coronavirus OC43 (PCR) Not Detected (NotDetected) 01/29/23 11:50 Coronavirus HKU1 (PCR) Not Detected (NotDetected) 01/29/23 11:50 Coronavirus 229E (PCR) Not Detected (NotDetected) 01/29/23 11:50 SARS-CoV-2 (PCR) Not Detected (NotDetected) 01/29/23 11:50 Coronavirus NL63 (PCR) Not Detected (NotDetected) 01/29/23 11:50 Human Metapneumovir PCR Not Detected (NotDetected) 01/29/23 11:50 Influenza Type A (PCR) Not Detected (NotDetected) 01/29/23 11:50 Influenza Type B (PCR) Not Detected (NotDetected) 01/29/23 11:50 M. pneumoniae (PCR) Not Detected (NotDetected) 01/29/23 11:50 Parainfluenza 1 (PCR) Not Detected (NotDetected) 01/29/23 11:50 Parainfluenza 2 (PCR) Not Detected (NotDetected) 01/29/23 11:50 Parainfluenza 3 (PCR) Not Detected (NotDetected) 01/29/23 11:50 Parainfluenza 4 (PCR) Not Detected (NotDetected) 01/29/23 11:50 RSV (PCR) Not Detected (NotDetected) 01/29/23 11:50 Entero/Rhino (PCR) Not Detected (NotDetected) 01/29/23 11:50 Impressions Chest X-Ray 01/31/23 08:00 XR chest 2V PA/lateral CLINICAL HISTORY: Follow up on pulmonary edema. COMPARISON STUDY: Chest CT December 01, 2021. Chest radiograph January 29, 2023. FINDINGS: Bilateral shoulder arthroplasties are incidentally noted. There are median sternotomy wires. There is cardiomegaly. A hiatal hernia is present. Asymmetric interstitial thickening and left lung airspace opacities have moderately improved since prior exam. There is no pneumothorax. No pleural effusion is identified. IMPRESSION: Moderate improvement in asymmetric airspace opacities and interstitial thickening within the left lung. The findings could reflect asymmetric pulmonary edema or pneumonia. ACT 112: Negative or not required by law. Electronically signed by: Anthony Borden M.D. 01/31/2023 9:33 AM Hospital Course (1) Acute on chronic diastolic CHF (congestive heart failure): (2) Sepsis due to pneumonia: Plan Ms. Howard is an 84 year old female that presents today with early signs of sepsis including tachycardia, on and off fevers/chills, without leukocytosis, no hypoxia and is on room air. She reports that her symptoms started on Sunday night and worsened overnight with orthopnea. Sepsis due to pneumonia: Patient presented with shortness of breath and orthopnea. Chest x-ray shows left-sided infiltrates. Procalcitonin 5.71, lactic acid 1.1 Leukocytosis resolved Blood cultures negative to date Continue on ceftriaxone plus azithromycin in ED. Plan to finish 7-day course of antibiotics Repeat chest x-ray showed improved airspace opacities, interstitial thickening. Clinically improved Transition to p.o. antibiotics upon discharge Plan to discharge home today Acute on Chronic CHF: Resolved BNP 534 Chest x-ray personally reviewed; component of pulmonary edema present Responded well with IV diuretics. Cardiology evaluated the patient; no need for additional diuretics. Cardiology recommends as needed diuretic at discharge. Demand ischemia EKG on admission reviewed; showed sinus rhythm with first-degree AV block. No ST or T wave changes. Patient denies any chest pain High-sensitivity troponin 76 on presentation; up trended and down trended Echocardiogram shows EF of 60 to 65% with mild concentric LVH. Moderate to severe tricuspid regurgitation present. Diarrhea Stool for C. difficile negative Likely due to antibiotics Imodium as needed Added probiotics Improved Hypophosphatemia Hypomagnesemia Replace electrolytes as needed Monitor H/O Atrial fibrillation: Chronic stable Takes Eliquis and metoprolol; continue ECG with NSR with first degree AVB QTc: 426 HLD: Chronic stable Takes rosuvastatin; continue Hypothyroidism: Chronic stable Most recent TSH Takes levothyroxine; continue Depression: Chronic stable Takes BuSpar; continue DVT Px: Eliquis CODE STATUS: Full code Disposition Home with home health Total Time Total Time Spent Total Time Spent (In Minutes): 56 minutes Discharge Plan Discharge Items Patient Disposition: Home - Home Health Services Reason For Visit: COUGH Discharge Diagnosis: Sepsis Pneumonia Acute on chronic diastolic CHF Activity: Per Instructions section Exercise/Sports: Gradually increase as tolerated Non-emergency contact: Primary Care Provider and Property Underwriter Call non-emergency contact if: you have any medication questions, your symptoms worsen, your pain is concerning for you and you have a fever Follow-up/Referrals: Con Coughlin MD [Primary Care Provider] - (Date & Time 02/05/2023 12:20 PM Provider Con Coughlin MD Department Family Medicine [facility] ) Diet: Heart Healthy and Lactose Intolerant Diet Texture: Easy to Chew Addtl Attending Provider Instructions: Follow-up with your primary care physician on 02/05/2023 12:20 PM as scheduled Follow-up with your clerk funeral detail as needed --Complete the antibiotic course azithromycin, cefdinir as prescribed. Seek immediate medical attention if your symptoms reoccur or worsen Please take all medications as instructed on discharge list below. Please call if you have any questions or problems. You can reach a [facility] hospitalist on duty at [facility] 24 hours a day by calling [phone] Call your Primary Care doctor if any of the following symptoms or problems start or get worse: * Shortness of breath or difficulty breathing * Wake up at night short of breath * Chest pain * Cough * Swelling of your hands, feet, or legs * More fatigued or tired with your normal activity * Palpitations - sudden fast heart beats WEIGHT * Weigh yourself every morning after using the bathroom. * Use the same scale. * Wear the same amount of clothing. * Write your weight down on a chart. * Call your Primary Care doctor if you gain more than 2-3 pounds in 1-2 days. MEDICATIONS * Use this discharge instruction sheet for medication instructions. * Take your medications at the time your doctor ordered. * Do not skip a dose of your medicines. * If you miss a dose of medicine, take it as soon as possible, but DO NOT DOUBLE A DOSE. * Read your medicine information when you get home. * Know all of the side effects of your medicine. If in doubt, ask your pharmacist * Call your Primary Care doctor's office if you have any side effects. * Be sure all of your doctors know what medicine and herbs you take (including cold, flu, and herbal medicine). Take the following with you to your follow-up doctor appointments: * Weight Chart * Medication List * List of questions Do not drink excessive alcohol, beer or wine. Pending Studies at Discharge: No Stand-Alone Forms: My [facility] [employer], Smoking Cessation Medications and DC Order Prescriptions: New azithromycin 250 mg Tablet 250 mg PO QAM Qty: 3 0RF cefdinir 300 mg Capsule 300 mg PO DAILY@1300 Qty: 7 0RF Advanced Probiotic 625 mg (10 billion cell) Capsule 2 cap PO DAILY Qty: 30 0RF Continued Eliquis 5 mg tablet 5 mg PO BID Qty: 180 3RF zolpidem 5 mg tablet 5 mg PO HS PRN (Reason: Sleep) Qty: 30 5RF rosuvastatin [Crestor] 10 mg tablet 10 mg PO DAILY Rx Instructions: at bedtime buspirone 10 mg tablet 10 mg PO BID Qty: 60 5RF levothyroxine [Levoxyl] 100 mcg Tablet 100 mcg PO DAILYBB pantoprazole [Protonix] 40 mg Tablet,Delayed Release (Dr/Ec) 40 mg PO BID metoprolol succinate 50 mg Tablet Extended Release 24 Hr 50 mg PO QAM Qty: 30 0RF calcitriol 0.25 mcg Capsule 0.25 mcg PO MoWeFr@0900 Qty: 30 0RF ondansetron 4 mg tablet,disintegrating 4 mg PO Q8H PRN (Reason: nausea and vomiting) Qty: 30 0RF gabapentin 300 mg capsule 300 mg PO BID loperamide 2 mg Tablet 2 mg PO QID PRN (Reason: Diarrhea) meloxicam 7.5 mg tablet 7.5 mg PO QAM PRN (Reason: Pain) benzonatate 100 mg capsule 100 mg PO TID PRN (Reason: Cough) trazodone 150 mg tablet 150 mg PO HS Discontinued sulfamethoxazole-trimethoprim 800-160 mg tablet 1 tab PO AMHS Discharge Orders: Discharge Order (Routine); Ordered 02/02/23 Ordered By: Lalo Conte Admission Data Admit Date/Time: 01/29/23 14:10 Attending Provider: Lalo Conte Admit Provider: Zi Reynaga Primary Care Provider: Con Coughlin Other Providers: Ashleigh Balderas; Roderick Barcenas; Noah Adams; Delmar Askew; Dre Joy; Venu Seay; Tyler Ramos Jr; Michi Sahni; Sonia Interiano; Maye Salazar; Albino Frey; Albino Crowe; Toney Delgado; Maia Damian; Kimberly Holloway; Mike Durham; Diego Ly; Dre Ron V.; Surya Aggarwal; Walter Harvey [facility]
[2023-02-02] MEDS: cefTRIAXone SODIUM 2,000 MG in DEXTROSE 5 % MINI-B 50 ML IV SCH (12:48)
[2023-02-02] MEDS ORDERED: CEFDINIR 300 MG CAP PO SCH (13:00)
[2023-02-06] MEDS ORDERED: AZITHROMYCIN 250 MG TAB PO SCH (17:00)
== END 2023-02-02 15:42 | disposition home health service (06) | DRG 871 ==
LOC: ED 11:29 → SUATTDRO 14:10 → EDINP 14:10 → 2N 01-30 02:30

== ENCOUNTER 2023-02-26 16:02 | Observation (INO) ==
--- NOTE | 2023-02-26 16:16 | Emergency Department Note ---
Impression & Plan Chest pain, CAD (coronary artery disease), Drug noncompliance ED Provider Note NAME: Marquez LEACH AGE: 84 SEX: F : 11/14/1938 ARRIVES VIA: Ambulance INFORMANT: Patient ED PROVIDER(S): Jeffy Mckeon DO CHIEF COMPLAINT: chest pain and shortness of breath HPI: Patient is an 84-year-old female who presents to the ER for chest pain and shortness of breath with a past medical history of CAD, and CABG x 1. She has a past medical history of CAD, heart failure with preserved EF, paroxysmal A-fib, hypertension, who presents to the ER for left sided chest pain which lasted for about an hour today. She notes she has had this several times before in the past but is never been this bad. Associate with shortness of breath. Denies any belly pain, nausea, vomiting, or diarrhea. Did call EMS and it has abated. No dysuria urgency or frequency. No other exacerbating or remitting factors. She notes that she did not take her medications at all this weekend as she forgot. ADDITIONAL HISTORY OBTAINED: Per HPI Chronic Medical/Social Conditions Affecting Care: Per HPI PAST MEDICAL HISTORY:See Below PAST SURGICAL HISTORY:See Below FAMILY HISTORY:See Below SOCIAL HISTORY:See Below HOME MEDICATIONS:See Below ALLERGIES:See Below VITALS:See Below PHYSICAL EXAMINATION: GENERAL: Sitting up in bed, alert, well appearing, well nourished, no distress, non-toxic EYE EXAM: normal conjunctiva. OROPHARYNX: no exudate, no erythema, lips, buccal mucosa, and tongue normal and mucous membranes are moist NECK: supple, no nuchal rigidity, no adenopathy, non-tender LUNGS: Clear to auscultation. Normal chest wall mechanics HEART: no murmurs, S1 normal and S2 normal ABDOMEN: abdomen soft, non-tender, normo-active bowel sounds, no masses, no rebound or guarding. UPPER EXTREMITIES: upper extremities are grossly normal. LOWER EXTREMITIES: No pitting edema. NEURO EXAM: Normal sensorium, cranial nerves II-XII grossly intact, normal speech, no gross weakness of arms, no gross weakness of legs. MEDICAL DECISION MAKING: Patient is an 84-year-old female who presents ER for the above-stated complaint. IV was established blood work is obtained. She has a history of CAD as well as a CABG. labs show no significant leukocytosis or anemia. BMP along LFTs bilirubin and troponin was negative. Lipase is unremarkable. UA was clean. Chest x-ray and EKG were unremarkable. Pain-free upon arrival to the ER but with her history I discussed case with the hospitalist for further observation. Per report from EMS she did receive aspirin prior to arrival. Consults/Care Managements Discussions: Per MDM Triage Nursing notes reviewed. Limited review of prior medical records performed Vital Signs: reviewed and remarkable for no significant abnormalities Differential diagnosis: Cardiac ischemia, aortic dissection, pulmonary embolism, pneumothorax, pneumonia, pericarditis, myocarditis, esophageal rupture, GERD, cholecystitis, pancreatitis, musculoskeletal, as well as other pathologies. ER treatment provided: See below Diagnostics interpreted by me include EKG and cardiac monitoring as listed below: -Cardiac Monitoring: An order was placed for continuous cardiac monitoring. The monitor shows a rate of 70 with sinus rhythm. -ECG: Sinus rhythm rate 74 Normal axis No PVCs QTc 430 First-degree AV block -Laboratory studies:Interpreted by me as stated above in MDM and shown below. Imaging studies: Xrays: As interpreted by me: Portable AP upright 1 view of the chest shows no focal infiltrate CTs show: none Procedures:none Critical Care: None Past Med/Surg History Medical History (Updated 02/26/23 @ 21:33 by Jeffy Mckeon DO) Atrial fibrillation with rapid ventricular response (11/2022) History of rheumatic fever CAD (coronary artery disease) Hypophosphatemia Hypomagnesemia Acute on chronic diastolic CHF (congestive heart failure) Sepsis due to pneumonia Fall New onset a-fib Moderate mitral regurgitation Mild aortic stenosis Transient ischemic attack (TIA) ~2012>REASON FOR [place] Osteoarthritis Chronic back pain Dyslipidemia History of blood transfusion 2012 2/2 GASTRIC ULCER History of gastric ulcer 2013 Depression Acid reflux OCCASIONAL Spinal stenosis Arthritis Hypothyroidism Chronic kidney disease stage 3 Hypertension Surgical History History of cardiac cath NO STENTS History of coronary artery bypass graft 1998 (1 VESSEL) S/P epidural steroid injection History of esophagogastroduodenoscopy (EGD) 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 S/p reverse total shoulder arthroplasty RT/LEFT History of abdominoplasty PANNICULECTOMY History of colonoscopy History of arthroplasty of right hip History of arthroplasty of left hip History of hysterectomy with oophorectomy History of arthroplasty of left shoulder History of tonsillectomy and adenoidectomy H/O bilateral salpingo-oophorectomy with hyter Family History Father , age 74 Allergic reaction Mother , 80s CHF (congestive heart failure) Other No family history of adverse response to anesthesia Social History Smoking Status: Never smoker Second Hand Exposure: No; Do You Dip or Chew Tobacco: No; Tobacco Cessation Education Requested by Patient: No Hx Alcohol Use: No Hx Substance Use: No Preferred Language: American Communication Ability: Effective Visual Impairment: No Limitations [place] Extension Agent Required: No Beliefs That Will Affect Care: None marital status: Single Current Living Situation: Alone Current Living Situation Comment: [facility] How many Children do You have: 0 Other Information That Helps Us Care for You: No Feels Safe at Home: Yes Safety Concerns: Feels Safe At This Time Assistive Devices: Glasses Allergies Allergies Allergy/AdvReac Type Severity Reaction Status Date / Time nitroglycerin AdvReac Severe "PROJECTILE Verified 01/29/23 15:15 VOMITTING" ergotamine AdvReac Intermediate vomiting Verified 01/29/23 15:15 Home Meds Home Medications Medication Instructions Recorded Confirmed levothyroxine 100 mcg tablet 100 mcg PO DAILYBB 01/23/18 02/26/23 (Levoxyl) pantoprazole 40 mg tablet,delayed 40 mg PO AMHS 01/23/18 02/26/23 release (Protonix) gabapentin 300 mg capsule 300 mg PO TID 07/13/22 02/26/23 rosuvastatin 10 mg tablet (Crestor) 10 mg PO HS 11/30/22 02/26/23 benzonatate 100 mg capsule 100 mg PO TID PRN Cough 01/29/23 02/26/23 loperamide 2 mg tablet 2 mg PO QID PRN Diarrhea 01/29/23 02/26/23 meloxicam 7.5 mg tablet 7.5 mg PO QAM Pain 01/29/23 02/26/23 trazodone 150 mg tablet 150 mg PO HS 01/29/23 02/26/23 apixaban 5 mg tablet (Eliquis) 5 mg PO AMHS 02/26/23 02/26/23 ondansetron 4 mg disintegrating 4 mg PO Q6 PRN Nausea 02/26/23 02/26/23 tablet Previous Rx's Medication Instructions Recorded buspirone 10 mg tablet 10 mg PO BID #60 tabs 03/22/21 calcitriol 0.25 mcg capsule 0.25 mcg PO MoWeFr@0900 #30 caps 12/12/22 metoprolol succinate 50 mg 50 mg PO QAM #30 tabs 12/12/22 tablet,extended release 24 hr zolpidem 5 mg tablet 5 mg PO HS PRN Sleep #30 tabs 01/16/23 Results & Data (ED) Vital Signs Vital Signs - 24 hr 02/26/23 16:02 02/26/23 16:02 02/26/23 16:05 Temperature 36.6 C Temperature Source Oral Pulse Rate 75 75 Pulse Rate from SpO2 Sensor Pulse Rhythm Regular Respiratory Rate 18 18 Respiratory Effort / Characteristics Non-Labored Respiratory Depth Normal Respiratory Pattern Regular Blood Pressure 168/88 H Blood Pressure Mean 114 Pulse Oximetry 100 100 100 Oxygen Delivery Method Room Air Room Air Room Air Sepsis Recent Fever Within 48 Hours No Sepsis New/Unexplained Change in Mental Status N/A Sepsis Action Taken by Nursing No Action Required 02/26/23 16:18 02/26/23 16:30 02/26/23 17:00 Temperature Temperature Source Pulse Rate 75 77 84 Pulse Rate from SpO2 Sensor 76 83 Pulse Rhythm Respiratory Rate 19 21 Respiratory Effort / Characteristics Respiratory Depth Respiratory Pattern Blood Pressure 164/93 H Blood Pressure Mean 116 Pulse Oximetry 98 98 Oxygen Delivery Method Sepsis Recent Fever Within 48 Hours Sepsis New/Unexplained Change in Mental Status Sepsis Action Taken by Nursing 02/26/23 17:08 Temperature Temperature Source Pulse Rate 84 Pulse Rate from SpO2 Sensor 75 Pulse Rhythm Respiratory Rate 28 H Respiratory Effort / Characteristics Respiratory Depth Respiratory Pattern Blood Pressure 164/93 H Blood Pressure Mean 116 Pulse Oximetry 98 Oxygen Delivery Method Sepsis Recent Fever Within 48 Hours Sepsis New/Unexplained Change in Mental Status Sepsis Action Taken by Nursing Laboratory Data 02/26/23 16:06 02/26/23 16:06 Lab Results 02/26/23 02/26/23 Range/Units 16:06 17:25 WBC 6.56 (4.8-10.8) K/ul RBC 4.06 L (4.20-5.40) M/uL Hgb 12.1 (12.0-16.0) g/dl Hct 35.6 L (37.0-47.0) % MCV 87.7 (80.0-100.0) fL MCH 29.8 (25.0-34.0) pg MCHC 34.0 (32.0-36.0) g/dL RDW Std Deviation 48.9 H (36.4-46.3) fL RDW Coeff of Howie 15.1 H (11.5-14.5) % Plt Count 198 (130-400) K/uL MPV 10.1 (9.4-12.4) fL Immature Gran % (Auto) 0.3 % Neut % (Auto) 51.6 % Lymph % (Auto) 32.9 % Loving % (Auto) 12.8 % Eos % (Auto) 1.5 % Baso % (Auto) 0.9 % Neut # (Auto) 3.38 (1.40-6.50) K/uL Lymph # (Auto) 2.16 (1.20-3.40) K/uL Loving # (Auto) 0.84 H (0.11-0.59) K/uL Eos # (Auto) 0.10 (0.00-0.50) K/uL Baso # (Auto) 0.06 (0.00-0.20) K/uL Immature Gran # (Auto) 0.02 (0.01-0.20) K/uL Sodium 139 (136-145) mmol/L Potassium 4.0 (3.5-5.1) mmol/L Chloride 107 (98-107) mmol/L Carbon Dioxide 24 (21-32) mmol/L Anion Gap 8 (3-11) BUN 18 (6-23) mg/dl Creatinine 1.01 (0.6-1.2) mg/dl Est Cr Clr Drug Dosing Not Reportable Est GFR ( Amer) 58.4 ml/min Est GFR (Non-Af Amer) 50.4 ml/min BUN/Creatinine Ratio 17.8 (10-20) Glucose 85 (70-99(Fasting)) mg/dl Calcium 10.8 H (8.6-10.3) mg/dl Total Bilirubin 1.0 (0.2-1.0) mg/dl AST 19 (13-39) U/L ALT 13 (7-52) U/L Alkaline Phosphatase 56 (34-104) U/L Troponin I High Sens 10.0 (0-14) pg/ml Total Protein 7.5 (6.0-8.3) gm/dl Albumin 4.1 (3.4-5.0) gm/dl Globulin 3.4 (2.5-4.0) gm/dl Albumin/Globulin Ratio 1.2 (0.9-2) Lipase 32 (11-82) U/L Urine Color Yellow Urine Appearance Clear (Clear) Urine pH 8.5 H (4.5-7.5) Ur Specific Interior 1.011 (1.000-1.030) Urine Protein Negative (Negative) Urine Glucose (UA) Negative (Negative) Urine Ketones Negative (Negative) Urine Blood Negative (Negative) Urine Nitrite Negative (Negative) Urine Bilirubin Negative (Negative) Urine Urobilinogen Negative (Negative) Ur Leukocyte Esterase Negative (Negative) Administered Medications Apixaban (Apixaban 5 Mg Tablet) 5 mg PO [facility] Stop: 03/28/23 20:59 Last Admin: 02/26/23 19:53 Dose: 5 mg Documented By: HUSSAIN Buspirone HCl (Buspirone 5 Mg Tab) 10 mg PO BID [facility] Stop: 03/28/23 20:59 Last Admin: 02/26/23 19:53 Dose: 10 mg Documented By: HUSSAIN Gabapentin (Gabapentin 300 Mg Cap) 300 mg PO TID [facility] Stop: 03/28/23 20:59 Last Admin: 02/26/23 19:54 Dose: 300 mg Documented By: HUSSAIN Metoprolol Succinate (Metoprolol Succ 50mg Ext Rel Tab) 50 mg PO [facility] Stop: 03/28/23 18:44 Last Admin: 02/26/23 19:52 Dose: 50 mg Documented By: MPC Pantoprazole Sodium (Pantoprazole 40 Mg Tab) 40 mg PO [facility] Stop: 03/28/23 20:59 Last Admin: 02/26/23 19:55 Dose: 40 mg Documented By: Admin: 02/26/23 19:54 Dose: 40 mg Documented By: MPC Rosuvastatin Calcium (Rosuvastatin Calcium 10 Mg Tab) 10 mg PO [facility] Stop: 03/28/23 20:59 Last Admin: 02/26/23 19:54 Dose: 10 mg Documented By: HUSSAIN Discontinued Medications Labetalol HCl (Labetalol Hcl Iv 5 Mg/Ml 20ml) 5 mg IV NOW STA Stop: 02/26/23 17:36 Last Admin: 02/26/23 18:18 Dose: 5 mg Documented By: CARLOS A Co-signed By: ALISHA Lorazepam (Lorazepam 0.5 Mg Tab) 0.25 mg PO NOW STA Stop: 02/26/23 19:31 Last Admin: 02/26/23 19:52 Dose: 0.25 mg Documented By: HUSSAIN Imaging Data Radiologist's Impression: Chest X-Ray 02/26/23 16:09 SINGLE VIEW CHEST CLINICAL HISTORY: Atypical chest pain. FINDINGS: An AP, portable, upright chest radiograph is compared to study dated 01/31/2023. Correlation is made with chest CT dated 12/01/2021. A hiatal hernia is noted. The patient is status post midline sternotomy. The heart is enlarged noting atherosclerotic calcification of the thoracic aorta. The pulmonary vasculature is noncongested. Chronic interstitial thickening is similar to previous. There is mild bibasilar scarring/atelectasis. The lungs and pleural spaces are otherwise clear. No pneumothorax is seen. The skeletal structures are osteopenic. The bony thorax is grossly intact. Bilateral shoulder arthroplasties are in place. Degenerative change and scoliosis is noted in the spine. IMPRESSION: Cardiomegaly with no active disease in the chest. ACT 112: Negative or not required by law. Electronically signed by: Avel Calero M.D. 02/26/2023 4:30 PM Discharge Plan Visit Data Chief Complaint: Shortness of Breath/Dyspnea ED Provider: Jeffy Mckeon Discharge Problem: Chest pain, CAD (coronary artery disease), Drug noncompliance Patient Disposition: Admitted As Inpatient Discharge Instructions Interventions: ED Discharge Assessment Last Done: 02/26/23 18:14 Discharge Problem: Chest pain Qualifiers: Chest pain type: unspecified Qualified Code(s): R07.9 - Chest pain, unspecified CAD (coronary artery disease) Qualifiers: Coronary Disease-Associated Artery/Lesion type: unspecified vessel or lesion type [place] vs. transplanted heart: unspecified whether [place] or transplanted heart Associated angina: unspecified whether angina present Qualified Code(s): I 25.10 - Atherosclerotic heart disease of [place] coronary artery without angina pectoris
[2023-02-26 16:31] LABS: Basophils # (auto) 0.06 K/uL (0.00-0.20); Basophils % (auto) 0.9 %; Eosinophils % (auto) 1.5 %; Hematocrit (blood only) 35.6 % (37.0-47.0); Hemoglobin 12.1 g/dl (12.0-16.0); Immature Granulocytes # (auto) 0.02 K/uL (0.01-0.20); Immature Granulocytes % (auto) 0.3 %; Lymphocytes # (auto) 2.16 K/uL (1.20-3.40); Lymphocytes % (auto) 32.9 %; Mean Corpuscular Hemoglobin 29.8 pg (25.0-34.0); Mean Corpuscular Volume 87.7 fL (80.0-100.0); Mean Platelet Volume 10.1 fL (9.4-12.4); Monocytes # (auto) 0.84 K/uL (0.11-0.59); Monocytes % (auto) 12.8 %; Neutrophils # (auto) 3.38 K/uL (1.40-6.50); Neutrophils % (auto) 51.6 %; Platelet Count 198 K/uL (130-400); RDW Coefficient of Variation 15.1 % (11.5-14.5); RDW Standard Deviation 48.9 fL (36.4-46.3); Red Blood Count 4.06 M/uL (4.20-5.40); White Blood Count 6.56 K/ul (4.8-10.8)
--- NOTE | 2023-02-26 16:31 | XRay Report ---
SINGLE VIEW CHEST CLINICAL HISTORY: Atypical chest pain. FINDINGS: An AP, portable, upright chest radiograph is compared to study dated 01/31/2023. Correlatio n is made with chest CT dated 12/01/2021. A hiatal hernia is noted. The patient is status post midlin e sternotomy. The heart is enlarged noting atherosclerotic calcification of the thoracic aorta. The p ulmonary vasculature is noncongested. Chronic interstitial thickening is similar to previous. There i s mild bibasilar scarring/atelectasis. The lungs and pleural spaces are otherwise clear. No pneumotho rax is seen. The skeletal structures are osteopenic. The bony thorax is grossly intact. Bilateral kiara ulder arthroplasties are in place. Degenerative change and scoliosis is noted in the spine. IMPRESSION: Cardiomegaly with no active disease in the chest. ACT 112: Negative or not required by law. Electronically signed by: Avel Calero M.D. 02/26/2023 4:30 PM
--- NOTE | 2023-02-26 16:45 | Electrocardiogram Report ---
Test Reason : Blood Pressure : / mmHG Vent. Rate : 074 BPM Atrial Rate : 074 BPM P-R Int : 228 ms QRS Dur : 086 ms QT Int : 388 ms P-R-T Axes : 075 045 041 degrees QTc Int : 430 ms Sinus rhythm with 1st degree A-V block Otherwise normal ECG When compared with ECG of 29-JAN-2023 11:48, No significant change Confirmed by Noah Adams ([id number]) on 02/26/2023 4:45:25 PM Referred By: Confirmed By:Noah Adams
[2023-02-26 16:51] LABS: Alanine Aminotransferase 13 U/L (7-52); Albumin Globulin Ratio 1.2 (0.9-2); Albumin Level 4.1 gm/dl (3.4-5.0); Alkaline Phosphatase 56 U/L (34-104); Anion Gap 8 (3-11); Aspartate Aminotransferase 19 U/L (13-39); BUN Creatinine Ratio 17.8 (10-20); Blood Urea Nitrogen 18 mg/dl (6-23); Calcium 10.8 mg/dl (8.6-10.3); Carbon Dioxide 24 mmol/L (21-32); Chloride 107 mmol/L (98-107); Est GFR (African American) 58.4 ml/min; Est GFR (Non-African American) 50.4 ml/min; Globulin 3.4 gm/dl (2.5-4.0); Glucose 85 mg/dl (70-99(Fasting)); Lipase 32 U/L (11-82); Sodium 139 mmol/L (136-145); Total Protein 7.5 gm/dl (6.0-8.3)
[2023-02-26] MEDS ORDERED: ONDANSETRON INJ 2 MG/ML 2 ML VIAL IV PRN (17:33)
[2023-02-26] MEDS ORDERED: ALUMINUM/MAGNESIUM SUSP 30 ML UDC PO PRN (17:33)
[2023-02-26] MEDS ORDERED: MAGNESIUM HYDROXIDE SUSP 30 ML UDC PO PRN (17:33)
[2023-02-26] MEDS ORDERED: POLYETHYLENE (MIRALAX) 17 GM PACK PO PRN (17:33)
[2023-02-26] MEDS ORDERED: ACETAMINOPHEN 325 MG TAB PO PRN (17:33)
[2023-02-26] MEDS ORDERED: LABETALOL HCL IV 5 MG/ML 20ML IV STA (17:35)
--- NOTE | 2023-02-26 17:38 | History & Physical Report ---
Date of Service February 26, 2023 Assessment & Plan (1) Atrial fibrillation with rapid ventricular response: (2) SOB (shortness of breath): (3) History of rheumatic fever: (4) Acute on chronic heart failure with preserved ejection fraction (HFpEF): (5) Anxiety: (6) Depression: Plan Ms. Howard is a 84 year old female that presented to the ED today with shortness of breath that has started over the past 2 days. She was recently admitted on January 30 for sepsis pneumonia and was discharged to her home. She reports that she has not taken her medications in 4 days. Patient reports that she does live alone at home and does her ADLs independently. CXR with cardiomegaly without acute cardiopulmonary process. No leukocytosis, otherwise labs unremarkable to this time. Magnesium and Phos pending. Initial troponin negative. Do not suspect ACS or other ischemic demand in nature. PMH includes: Atrial Fibrillation (On Eliquis),HFpEF, history of TIA, CAD, CKD stage III, hypothyroidism, depression, and GERD. Pt reports that she has a cardiac murmur since she was 3 years old after having rheumatic fever. She has never had cardiac intervention for this. Most recent ECHO 11/2022 EF 55-59%, LV wall motion normal, Mild aortic stenosis, trace pulmonic valve regurgitation, mild MR/TR, mild concentric LVH Pt denies COLBERT, dizziness, SOB, chest pain, abdominal pain or tenderness, visual or auditory changes, recent falls or trauma. On examination, patient was returning to her bed from the bathroom and was visibly shortness of breath and was tachycardic up to the 130s and was hypertensive SBP > 200. We did obtain an ECG which is unchanged from her initial ECG on arrival to the ER. Since she has not taken her medications this morning we did proceed with labetalol 5 mg one- time dose and will resume a.m. dose of metoprolol as her systolic remained greater than 180. Suspect patient needs to be optimized with home medications. Will trend troponin and re-involve cardiology, along with ruling out infective properties; including blood and urine cultures. Will hold on IV antibiotics at this point since no leukocytosis and no overt sign of infection. Atrial fibrillation with RVR: SOB: Has not taken her medications for the past few days ECG x2: Last ECHO: Dyspnea with exertion without chest pain Irregular heart sounds on auscultation No leukocytosis Labetalol 5 mg IV once; SBP greater than 180 will resume a.m. dose of metoprolol now and continue daily dose tomorrow Troponin 10.1; will trend x 1. Do not suspect ACS or other ischemic demand Will rule out infectious causes; blood and urine cultures ordered Biofire ordered Cardiology consultation HFpEF: Chronic Takes Appears euvolemic to dry on exam Will order diet; hold on any IV fluids at this time H/O Rheumatic Fever: Chronic Has audible murmur; no cardiac intervention prior to this HLD: Chronic stable Takes rosuvastatin; continue Hypothyroidism: Chronic stable Most recent TSH Takes levothyroxine; continue Depression: Chronic stable Takes BuSpar; continue Disposition: PCP: Dr. Flores CODE STATUS: Full code VTE prophylaxis: On Eliquis I spent a total of 87 minutes coordinating, documenting, and providing care for this patient excluding time spent in the performance of separately billed services. All of the aforementioned completed while collaborating with the assigned attending physician for a full treatment plan. Please see their addendum for further details. History of Present Illness Primary Care Provider: Con Coughlin MD Ms. Howard is a 84 year old female that presented to the ED today with shortness of breath that has started over the past 2 days. She was recently admitted on January 30 for sepsis pneumonia and was discharged to her home. She reports that she has not taken her medications in 4 days. Patient reports that she does live alone at home and does her ADLs independently. CXR with cardiomegaly without acute cardiopulmonary process. No leukocytosis, otherwise labs unremarkable to this time. Magnesium and Phos pending. Initial troponin negative. Do not suspect ACS or other ischemic demand in nature. PMH includes: Atrial Fibrillation (On Eliquis),HFpEF, history of TIA, CAD, CKD stage III, hypothyroidism, depression, and GERD. Pt reports that she has a cardiac murmur since she was 3 years old after having rheumatic fever. She has never had cardiac intervention for this. Most recent ECHO 11/2022 EF 55-59%, LV wall motion normal, Mild aortic stenosis, trace pulmonic valve regurgitation, mild MR/TR. Most recent echocardiogram 01/30/2023 EF 60 to 65%, mild MR, moderate to severe TR and mild concentric LVH. Pt denies COLBERT, dizziness, SOB, chest pain, abdominal pain or tenderness, visual or auditory changes, recent falls or trauma. On examination, patient was returning to her bed from the bathroom and was visibly shortness of breath and was tachycardic up to the 130s and was hypertensive SBP > 200. We did obtain an ECG which is unchanged from her initial ECG on arrival to the ER. Since she has not taken her medications this morning we did proceed with labetalol 5 mg one-time dose and will resume a.m. dose of metoprolol as her systolic remained greater than 180. Suspect patient needs to be optimized with home medications. Will trend troponin and re-involve cardiology, along with ruling out infective properties; including blood and urine cultures. Will hold on IV antibiotics at this point since no leukocytosis and no overt sign of infection. Patient will be admitted for further evaluation and management. Please see A/P for further evaluation and management. Allergies Allergy/AdvReac Type Severity Reaction Status Date / Time nitroglycerin AdvReac Severe "PROJECTILE Verified 01/29/23 15:15 VOMITTING" ergotamine AdvReac Intermediate vomiting Verified 01/29/23 15:15 Home Medications Medication Instructions Recorded Confirmed Type levothyroxine 100 mcg tablet 100 mcg PO DAILYBB 01/23/18 02/26/23 History (Levoxyl) pantoprazole 40 mg tablet,delayed 40 mg PO AMHS 01/23/18 02/26/23 History release (Protonix) buspirone 10 mg tablet 10 mg PO BID #60 tabs 03/22/21 02/26/23 Rx gabapentin 300 mg capsule 300 mg PO TID 07/13/22 02/26/23 History rosuvastatin 10 mg tablet (Crestor) 10 mg PO HS 11/30/22 02/26/23 History calcitriol 0.25 mcg capsule 0.25 mcg PO MoWeFr@0900 #30 caps 12/12/22 02/26/23 Rx metoprolol succinate 50 mg 50 mg PO QAM #30 tabs 12/12/22 02/26/23 Rx tablet,extended release 24 hr zolpidem 5 mg tablet 5 mg PO HS PRN Sleep #30 tabs 01/16/23 02/26/23 Rx benzonatate 100 mg capsule 100 mg PO TID PRN Cough 01/29/23 02/26/23 History loperamide 2 mg tablet 2 mg PO QID PRN Diarrhea 01/29/23 02/26/23 History meloxicam 7.5 mg tablet 7.5 mg PO QAM Pain 01/29/23 02/26/23 History trazodone 150 mg tablet 150 mg PO HS 01/29/23 02/26/23 History apixaban 5 mg tablet (Eliquis) 5 mg PO AMHS 02/26/23 02/26/23 History ondansetron 4 mg disintegrating 4 mg PO Q6 PRN Nausea 02/26/23 02/26/23 History tablet Past Med/Surg History Medical History (Updated 02/26/23 @ 18:00 by EIMR Flores) Atrial fibrillation with rapid ventricular response (11/2022) History of rheumatic fever CAD (coronary artery disease) Hypophosphatemia Hypomagnesemia Acute on chronic diastolic CHF (congestive heart failure) Sepsis due to pneumonia Fall New onset a-fib Moderate mitral regurgitation Mild aortic stenosis Transient ischemic attack (TIA) ~2012>REASON FOR PLAVIX Osteoarthritis Chronic back pain Dyslipidemia History of blood transfusion 2012 2/2 GASTRIC ULCER History of gastric ulcer 2012 Depression Acid reflux OCCASIONAL Spinal stenosis Arthritis Hypothyroidism Chronic kidney disease stage 3 Hypertension Surgical History History of cardiac cath NO STENTS History of coronary artery bypass graft 1998 (1 VESSEL) S/P epidural steroid injection History of esophagogastroduodenoscopy (EGD) 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 S/p reverse total shoulder arthroplasty RT/LEFT History of abdominoplasty PANNICULECTOMY History of colonoscopy History of arthroplasty of right hip History of arthroplasty of left hip History of hysterectomy with oophorectomy History of arthroplasty of left shoulder History of tonsillectomy and adenoidectomy H/O bilateral salpingo-oophorectomy with hyter Family History Father , age 74 Allergic reaction Mother , 80s CHF (congestive heart failure) Other No family history of adverse response to anesthesia Social History Smoking Status: Never smoker Second Hand Exposure: No; Do You Dip or Chew Tobacco: No; Hx Alcohol Use: No Hx Substance Use: No Preferred Language: Montserratian Communication Ability: Effective Visual Impairment: No Limitations Surveillance Monitor Required: No Beliefs That Will Affect Care: None marital status: Single Current Living Situation: Alone Current Living Situation Comment: [facility] How many Children do You have: 0 Feels Safe at Home: Yes Assistive Devices: Walker Review of Systems Review of Systems: Neuro: (-) Falls, trauma, slurred speech HEENT: (-) COLBERT, dizziness, dysphagia, visual or auditory changes CV: (-) CP, palpitations, swelling Resp: (-) SOB GI: (-) appetite changes, N/V/D, bowel changes : (-) urinary changes Skin: (-) rashes Psych: (-) anxiety, depression Physical Exam Physical Exam: Neuro AAOx4, PERRLA, no aphagia, memory changes, CNII-XII grossly intact HEENT: head normocephalic, moist mucus membranes CV: Irregularly Irregular, (-) M/G/R, (-) edema, cap refill < 3 seconds Resp: Lungs CTA in all velasquez. On RA GI: Abdomen S/NT/ND, Ax4 bowel sounds, (-) CVA tenderness Musculoskeletal: 5/5 B/L UE strength, 5/5 B/L LE strength. No gait disturbance Skin: (-) rashes , (-) erythema. Psych: euthymic mood Results & Data Results & Data Vital Signs (Past 12 Hours) Vital Signs Temp Pulse Resp BP Pulse Ox O2 Del Method 02/26/23 17:00 84 21 164/93 H 98 02/26/23 16:30 77 19 98 02/26/23 16:18 75 02/26/23 16:05 75 18 100 Room Air 02/26/23 16:02 100 Room Air 02/26/23 16:02 36.6 C 75 18 168/88 H 100 Room Air Laboratory Results Short CBC 02/26/23 Range/Units 16:06 WBC 6.56 (4.8-10.8) K/ul Hgb 12.1 (12.0-16.0) g/dl Hct 35.6 L (37.0-47.0) % Plt Count 198 (130-400) K/uL BMP 02/26/23 16:06 Sodium 139 Potassium 4.0 Chloride 107 Carbon Dioxide 24 BUN 18 Creatinine 1.01 Glucose 85 Calcium 10.8 H Liver Function 02/26/23 Range/Units 16:06 Total Bilirubin 1.0 (0.2-1.0) mg/dl AST 19 (13-39) U/L ALT 13 (7-52) U/L Alkaline Phosphatase 56 (34-104) U/L Albumin 4.1 (3.4-5.0) gm/dl Diagnostic Findings Chest X-Ray 02/26/23 16:09 SINGLE VIEW CHEST CLINICAL HISTORY: Atypical chest pain. FINDINGS: An AP, portable, upright chest radiograph is compared to study dated 01/31/2023. Correlation is made with chest CT dated 12/01/2021. A hiatal hernia is noted. The patient is status post midline sternotomy. The heart is enlarged noting atherosclerotic calcification of the thoracic aorta. The pulmonary vasculature is noncongested. Chronic interstitial thickening is similar to previous. There is mild bibasilar scarring/atelectasis. The lungs and pleural spaces are otherwise clear. No pneumothorax is seen. The skeletal structures are osteopenic. The bony thorax is grossly intact. Bilateral shoulder arthroplasties are in place. Degenerative change and scoliosis is noted in the spine. IMPRESSION: Cardiomegaly with no active disease in the chest. ACT 112: Negative or not required by law. Electronically signed by: Avel Calero M.D. 02/26/2023 4:30 PM Code Status & VTE Plan Code Status Full code in the event of cardiac respiratory arrest; does not want to be kept alive on machines VTE Prophylaxis Plan VTE Prophylaxis will be ordered: Yes Supervising Physician Co-Signing Physician Notes I have seen and discussed the case with the collaborating RESEARCH AND DEVELOPMENT ENGINEER I agree with the above H&P. I have reviewed and confirmed the patients medical history, the findings on physical examination, and the patients diagnosis and treatment plan with Shelley MCRAE and agree with the information documented. In short, Ms. Howard is an 84 year old woman with history of a fib on eliquis, and multiple other cardiac comorbities who is presenting with SOB acutely over 48 hours, and being admitted for a fib RVR. Patient reports missing her medications for a "few days" and is not sure why she missed them. She denies any infectious symptoms and reports feeling well usually and notes medication compliance. She states she has "no one" to help her usually and has never had issues will falls or medication management. She is independent in ADLs and a home nurse checks in weekly. Labs are unremarkable. Imaging Clear. EKG with artifact, seems regular On exam, patient became exquisitely sob on exertion with rates up to 130s. Exam notable for anxious woman with conversational dyspnea. Cardiac exam with PVCs/ +JAN, ?regularity Resp CTAB MSK no edema Plan #A Fib with RVR #HFpEF -Resume home medications -IV labetolol in interim -Cardiology consult, appreciate recommendations -Monitor on tele, lyte replacement Rest of plan as above (6) Depression Depression Type: unspecified Qualified Code(s): F32.9 - Major depressive disorder, single episode, unspecified
[2023-02-26 18:01] LABS: Appearance Urine Clear (Clear); Bilirubin Urine Negative (Negative); Blood Urine Negative (Negative); Color Urine Yellow; Glucose Urine UA Negative (Negative); Ketones Urine Negative (Negative); Leukocyte Esterase Urine Negative (Negative); Nitrite Urine Negative (Negative); Protein Urine Negative (Negative); Specific Gravity Urine 1.011 (1.000-1.030); Urobilinogen Urine Negative (Negative); pH Urine 8.5 (4.5-7.5)
[2023-02-26] MEDS ORDERED: LORazepam 0.5 MG TAB PO STA (19:30)
[2023-02-26] MEDS: METOPROLOL SUCC 50MG EXT REL TAB PO SCH (19:52)
[2023-02-26] MEDS: APIXABAN 5 MG TABLET PO SCH (19:53)
[2023-02-26] MEDS: busPIRone 5 MG TAB PO SCH (19:53)
[2023-02-26] MEDS: GABAPENTIN 300 MG CAP PO SCH (19:54)
[2023-02-26] MEDS: PANTOprazole 40 MG TAB PO SCH ×2 (19:54→19:55)
[2023-02-26] MEDS: ROSUVASTATIN CALCIUM 10 MG TAB PO SCH (19:54)
[2023-02-26 20:29] LABS: Magnesium 1.8 mg/dl (1.7-2.4); Phosphorus 2.8 mg/dl (2.5-4.9)
[2023-02-26] MEDS: ZOLPIDEM TARTRATE 5 MG TAB PO PRN (23:00)
--- OUTSIDE RECORDS SUMMARY | 2023-02-26 23:22 | External Medical Summary | Summary of Care ---
Author Name Unknown Organization [facility] Address [address] [place] [address] Phone [phone] Care Team Providers Care Vice President Global Advertising Sales Name Role Phone Con Coughlin MD Primary Care Provider Reason for Visit * Reason Comments Hospital Call Hospital Follow-Up Encounter Details Date Type Department Care Team (Late st Contact Info) Description 02/20/2023 3:00 PM EST Office Visit Family Medicine [address] [phone] Con Coughlin MD [address] [place] [address] [place] [phone] Chronic heart failure with preserved ejection fraction (HCC)*; Primary insomnia; Primary hypertension; Acquired hypothyroidism; Atherosclerosis of lower si[place] coronary artery of lower sioux heart without angina pectoris; Chronic atrial fibrillation (HCC); Hypertensive 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 90 Tablet 3 11/20/2022 Active Pantoprazole Sodium [...] managing provider. 1 Each 0 12/15/2022 Active Meloxicam 7.5 MG Oral Tablet (Mobic)Indication s:Bilateral shoulder region arthritis Take 1 Tablet by mouth in the morning. for pain.. 30 Tablet 5 12/18/2022 Active Benzonatate 100 MG Oral Capsule (Tessalon [...] at bedtime 30 Tablet 5 01/17/2023 Active Rosuvastatin Calcium 10 MG Oral Tablet (Crestor)Indicati ons:Dyslipidemia, goal LDL below 100 TAKE ONE TABLET BY MOUTH AT BEDTIME 90 Tablet 0 02/01/2023 Active Calcitriol 0.25 MCG Oral Capsule (Rocaltrol) Take 1 Capsule by mouth in the morning. Take 1 capsule by mouth Mon, Wed, Fri. 45 Capsule 1 02/07/2023 Active Ondansetron HCl 4 MG Oral Tablet (Zofran)Indicatio ns:Nausea TAKE ONE TABLET BY MOUTH EVERY 6 HOURS NEEDED FOR NAUSEA 30 Tablet 1 02/20/2023 Active Amoxicillin 500 MG Oral Capsule (Amoxil)Indicatio ns:Acute maxillary sinusitis, recurrence not specified Take 1 Capsule by mouth in the morning and 1 Capsule at noon and 1 Capsule before bedtime. Do all this for 10 days. 30 Capsule 0 01/10/2023 4 Discontinue d(Medicatio n List Clean Up) Sulfamethoxazole- Trimethoprim 800-160 MG Oral Tablet (Bactrim DS)Indications:Ac [place] maxillary sinusitis, recurrence not specified Take 1 Tablet by mouth in the morning and 1 Tablet before bedtime. Do all this for 10 days. Until gone.. 20 Tablet 0 01/23/2023 4 Discontinue d(Medicatio n List Clean Up) documented as of this encounter (statuses as of 02/20/2023) Active Problems Problem Noted Date Diagnosed Date Hypercalcemia 12/15/2022 Last Assessment & Plan: No longer on supplementation. Follow up with nephrology (HFpEF) heart failure with preserved ejection fr action 12/07/2022 Overview: Ca 11.6 Hiatal hernia 12/07/2022 Overview: moderate Current moderate episode of major depressive disorder without prior episode 04/07/2022 Hypertensive heart and kidne y disease with [...] pain concerns. She is aware [facility] does not manage chronic pain meds. With her history of confusion, would recommend against use of narcotic medication. Mild aortic stenosis 07/27/2021 Last Assessment & Plan: Following with cardiology Aortocoronary bypass status 03/09/2021 Chronic atrial fibrillation 03/01/2021 Overview: new onset, [facility] on apixaban Last Assessment & 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lower si[place] co ronary artery of lower [place] heart without angina pectoris Last Assessment & Plan: Stable no angina -continue rosuvastatin, metopropolol, Anxiety state Last Assessment & Plan: Stable on buspar, Primary hypertension Gastroesophageal reflux dise ase with esophagitis without hemorrhage Last Assessment & Plan: symptoms controlled on pantoprazole Scoliosis of lumbar spine Mixed incontinence urge and stress (male)(female ) documented as of this encounter (statuses as of 02/20/2023) Resolved Problems Problem Noted Date Diagnosed Date Resolved Date Meningioma, cerebral 07/16/2022 023 Overview: small frontal cortex meningioma without mass effect Migraine without aura and wi thout status migrainosus, not intractable 03/31/2022 03/31/2022 Major depressive disorder wi th single episode, in partial remission 03/31/2022 07/27/2022 Food insecurity 08/01/2021 02/01/2023 Overview: Per [facility] Protocol Chronic diastolic CHF (conge stive heart failure), [...] ulcer 06/30/2014 06/26/2017 Overview: hgb 7.4 admitted [facility] CKD (chronic kidney disease) stage [...] as of this encounter (statuses as of 02/20/2023) Immunizations Name Administration Dates Next Due COVID-19 mRNA, LNP-s, No Pre serve, 2-Dose Series (Moderna) 04/04/2020,03/14/2020 Pneumococcal Conjugate Vacc, 13 Valent (Prevnar) 08/26/2014 Pneumococcal Polysaccharide PPV23 (Pneumovax) 10/26/2005 Seasonal Influenza, PF, 6 M & above, IM , (FluLaval or Fluzone) 03/13/2019,12/27/2017 Seasonal Influenza, Quadriva lent Hd (Fluzone [...] Sign Reading Time Taken Comments Blood Pressure 126/70 02/20/2023 2:56 PM EST Pulse 72 02/20/2023 2:56 PM EST Temperature 36.1 C (97 F) 02/20/2023 2:56 PM EST Respiratory Rate 16 02/20/2023 2:56 PM EST Oxygen Saturation 97% 02/20/2023 2:56 PM EST Inhaled Oxygen Concentration - - Weight 73.1 kg (161 lb 3 oz) 02/20/2023 2:56 PM EST Height - - Body Mass Index 30.46 07/06/2022 1:08 PM EDT documented in this encounter Progress Notes * Con Coughlin MD - 02/20/2023 2:50 PM EST I have reviewed the patients controlled substance dispensing history in the Prescription Drug Monitoring Program in compliance with the [facility] regulations before prescribing a controlled substance. Last Tox Screen Results: Results for orders placed or performed in visit on 08/17/20 TOXICOLOGY, URINE SCREEN Result Value Amphetamines Screen, U Negative Benzodiazepines Screen, U Negative Cannabinoids Screen, U Negative Cocaine Metabolite Screen, U Negative Hydrocodone Screen, U Positive (A) Methadone Metabolite Screen, U Negative Morphine/Codeine Screen, U Positive (A) Oxycodone Screen, U Negative Narrative Cutoff Concentrations: Drug Level Amphetamines [...] results can be found in Results Review. Getting Ambien [address] Adams Past Medical History: Diagnosis Date (HFpEF) heart failure with preserved ejection fraction ([facility]) 12/07/2022 Acute on chronic combined systolic and diastolic CHF (congestive heart failure) ([facility]) 03/28/2021 admitted [facility] Anxiety state Anxiety State Aortic valve stenosis, mild 03/01/2021 Aortocoronary bypass status Atherosclerosis of lower si[place] coronary artery of lower sioux heart without angina pectoris Atrial fibrillation ([facility]) 12/09/2020 during admission [place] Benign hypertension with CKD (chronic kidney disease) stage III ([facility]) Cataract cortical, senile Chronic atrial fibrillation ([facility]) 03/01/2021 new onset, [facility] on apixaban CKD (chronic kidney disease) stage 3, GFR 30-59 ml/min ([facility]) 07/03/2013 GFR 36.9 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 11/01/2020 Coronary atherosclerosis CAD Cystitis 09/16/2018 >100,000 enterococcus pansensitive Cystitis 08/03/2020 10-100,000 E coli pansensitive Depressive disorder, not elsewhere classified Depression Gastric ulcer 06/30/2014 hgb 7.4 admitted [facility] Herpes zoster without complication 11/18/2020 right hip Hiatal hernia 12/07/2022 moderate Hypercalcemia 12/07/2022 Ca 11.6 Hypertension goal BP (blood pressure) < 140/90 Macular hole of left eye Major depression, single episode MEDICATION USE AGREEMENT 03/19/2012 Tylenol with codeine--Reena Meningioma, cerebral ([facility]) 07/16/2022 small frontal cortex meningioma without mass effect Meningioma, cerebral ([facility]) 08/02/2022 Adding D32.0-Meningioma, cerebral ([facility]) Dx to History Migraines history of migraines--stopped 1998 Mixed incontinence urge and stress (male)(female) Moderate mitral regurgitation 03/01/[address] Ndiaye Other and unspecified noninfectious gastroenteritis and colitis(558.9) 06/24/2013 admitted [facility] Other forms of retinal detachment(361.89) Pneumonia due to COVID-19 virus 12/09/2020 [place], transferred to [place] Postoperative anemia due to acute blood loss 03/11/2018 hgb 7, given 2 units PRBC hgb 9 on discharge Reflux esophagitis Scoliosis of lumbar spine Syncope and collapse 03/11/2018 hit head, admitted to [facility] Trochanteric bursitis of right hip 10/24/2020 Past Surgical History: Procedure Laterality Date ABDOMEN SURGERY PROCEDURE NEC liposuction CABG, ARTERIAL, TWO 02/[address] HEAD/BRAIN W/O CONTRAST MATERIAL 07/16/2022 chronic cerebellar infarct COLONOSCOPY, DIAGNOSTIC (RECTUM) 08/01/2016 normal bx/[facility] COLORECTAL CANCER SCREEN;W/FLE 08/2000 CT ABD/PELVIS W IV AND W ORAL CONTRAST N/A 10/05/2020 bilateral hip replacements, DJD of back, otherwise unremarkable. CTA HEAD W CONTRAST 07/14/2022 normal CTA NECK W CONTRAST 07/16/2022 no acute findings EGD, FLEXIBLE, DIAGNOSTIC 07/02/2014 esophagitis chronic gastritis with ulcers/inpt [facility] EGD, FLEXIBLE, DIAGNOSTIC 11/11/2014 reflux esophagitis/[facility] EGD, FLEXIBLE, DIAGNOSTIC 08/01/2016 gastritis, normal bx/[facility] INFORMATION repair retinal tear LASERING [...] on file Social History Narrative Zoya Howard Samhaileyhlaeyarcadio Social Determinants of Health Financial Resource Strain: [...] 1 Capsule before bedtime. 90 Capsule 5 Loperamide HCl 2 MG Oral Tablet (Imodium A-D) One tablet four times a day as needed 60 Tablet 1 Levothyroxine Sodium 100 MCG Oral Tablet (Levoxyl) Take 1 Tablet by mouth in the morning. (at least30 min prior to breakfast or other meds). 90 Tablet 3 Pantoprazole Sodium 40 MG Oral Tablet Delayed Release (Protonix) Take 1 Tablet by mouth in the morning and 1 Tablet before bedtime. 180 Tablet 1 DIURETIC TITRATION PLAN If no improvement on day 3, contact heart failure managing provider. 1 Each0 Meloxicam 7.5 MG Oral Tablet (Mobic) Take 1 Tablet by mouth in the morning. for pain.. 30 Tablet 5 Benzonatate 100 MG Oral Capsule (Tessalon Perles) Take 1 Capsule by mouth 3 times a day as needed for Cough. 30 Capsule 1 Metoprolol Succinate ER 50 MG Oral Tablet Extended Release 24 Hour (toPROL XL) Take 1 Tablet by mouth in the morning. 90 Tablet 1 traZODone HCl 150 MG Oral Tablet (Desyrel) One at bedtime 30 Tablet 5 Rosuvastatin Calcium 10 MG Oral Tablet (Crestor) TAKE ONE TABLET BY MOUTH AT BEDTIME 90 Tablet 0 Calcitriol 0.25 MCG Oral Capsule (Rocaltrol) Take 1 Capsule by mouth in the morning. Take 1 capsuleby mouth Mon, Wed, Fri. 45 Capsule 1 Ondansetron HCl 4 MG Oral Tablet (Zofran) TAKE ONE TABLET BY MOUTH EVERY 6 HOURS NEEDED FOR NAUSEA 30 Tablet 1 No current facility-administered medications for this visit. Immunization History Administered Date(s) Administered COVID-19 mRNA, LNP-s, No Preserve, 2-Dose Series (Moderna) 03/14/2020, 04/04/2020 Pneumococcal Conjugate Vacc, 13 Valent (Prevnar) 08/26/2014 Pneumococcal Polysaccharide PPV23 (Pneumovax) 10/26/2005 Seasonal Influenza, PF, 6 M & above, IM , (FluLaval or Fluzone) 12/27/2017, 03/13/2019 Seasonal Influenza, Quadrivalent Hd (Fluzone Hd) 11/18/2020, 01/10/2022 Seasonal Influenza, Quadrivalent Hd, 65+ Yrs 12/06/2019 Seasonal Influenza, Quadrivalent, No Preserve, IM 11/19/2014, 11/03/2015, 10/27/2016 Seasonal Influenza, Split, IIV3, With Preserve, Inj 12/01/2005, 11/22/2012, 11/04/2013 Seasonal Influenza, Trivalent, Adjuvanted, 65+ yrs 12/06/2019 Zoster Vaccine Recombinant (Shingrix) 12/04/2019 Lavinia was admitted to [facility] 01/29 for pneumonia with sepsis picture and CHF. She responded well, discharged 02/02. She says she feels much better other than her leaking black stool and diarrhea for which she takes imodium. We talked about probiotics and fiber. She is concerned because she is feeling a trigeminy in her heart at times. Not today. She is mentally clear because she is not on opioids. O: Blood pressure 126/70, pulse 72, temperature 36.1 C (97 F), temperature source Tympanic, resp. rate 16, weight 73.1 kg (161 lb 3 oz), SpO2 97%. Neck is supple without adenopathy or thyromegaly. Chest is symmetrical and moves normally. The lungs are clear without wheezes, rales, rhonchi or rubs, and the heart is regular without murmurs or gallops, or ectopy. PMI not displaced. Trace edema. 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 RTO prn documented in this encounter Nursing Notes * Flor Gilmore LPN - 02/20/2023 2:52 PM EST Follow up Was sick for 10 days. Was in bed the whole time. Had dry heaves. Still feels weak and SOB. documented in this encounter Plan of Treatment Upcoming Encounters Date Type Department Care Team (Late st Contact Info) Description 02/26/2023 4:00 PM EST Home Visit [place] [address] [facility] [place] [address] Lana Lieberman RN [address] [facility] [place] [address] 04/13/2023 3:40 PM EST Office Visit Family Medicine [address] [place] [phone] Marla Tan MD [address] [place] [address] [place] [phone] Health Maintenance Due Date Last Done Comments [...] Additional history exists CKD HGB USE SMARTSET 83651 10/05/202310/04, 10/04/2022, 07/06/2022, Additional history exists CKD PHOS USE SMARTSET 11526 10/05/202309/19, 06/08/2021, 09/07/2020, Additional history exists Pneumococcal [...] of this encounter Visit Diagnoses Diagnosis Chronic heart failure with preserved ejection fraction (HCC)- Primary Primary insomnia Persistent disorder of initiating or maintaining sleep Primary hypertension Unspecified essential hypertension Acquired hypothyroidism Unspecified hypothyroidism Atherosclerosis of lower [place] coronary artery of lower sioux heart without angina pectoris Chronic atrial fibrillation (HCC) Atrial fibrillation Hypertensive heart and kidney disease with chronic diastolic congestive heart failure and stage 3b chronic kidney disease (HCC) documented in this encounter Care Teams Vice President Global Advertising Sales Relationship Specialty Start Date End Date Con Coughlin MD [address] [place] [address] [place] [phone] PCP - General Family Medicine 06/30/14 documented as of this encounter
--- OUTSIDE RECORDS SUMMARY | 2023-02-26 23:22 | External Medical Summary | Summary of Care ---
Author Name Unknown Organization [facility] Address [address] [place] [facility] [place] [place] [address] Phone [phone] Care Team Providers Care As400 Consultant Name Role Phone Con Coughlin MD Primary Care Provider [phone] Reason for Visit * Reason Onset Date Comments [facility]: Maintenance 02/25/2023 Encounter Details Date Type Department Care Team (Late st Contact Info) Description 02/25/2023 2:30 PM EST Scheduled Telephone [facility], [facility] [address] [place] [address] [facility], Nurse [facility] [address] [place] [address] Allergies Active Allergy Reactions Criticality Noted Date Comments Ergotamine 03/01/2000 vomit Nitroglycerin 03/14/2007 vomitting documented as of this encounter (statuses as of 02/25/2023) Medications Medication Sig Dispensed Refills Start Date [...] FOR NAUSEA 30 Tablet 1 02/20/2023 Active documented as of this encounter (statuses as of 02/25/2023) Active Problems Problem Noted Date Diagnosed Date [...] her pain concerns. She is aware [facility] does not manage chronic pain 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[place] co ronary artery of [place] heart without angina pectoris Last Assessment & Plan: Stable no angina -continue rosuvastatin, metopropolol, Anxiety state Last Assessment & Plan: Stable on buspar, Primary hypertension Gastroesophageal reflux dise ase with esophagitis without hemorrhage Last Assessment & Plan: symptoms controlled on pantoprazole Scoliosis of lumbar spine Mixed incontinence urge and stress (male)(female ) documented as of this encounter (statuses as of 02/25/2023) Resolved Problems Problem Noted Date Diagnosed Date [...] at goal at metoprolol Acquired hypothyroidism 01/19/2016 113 Gastric ulcer 06/30/2014 06/26/2017 Overview: hgb 7.4 [...] as of this encounter (statuses as of 02/25/2023) Immunizations Name Administration Dates Next Due COVID-19 [...] Telephone Encounter - Maia Yao RN - 02/25/2023 9:53 AM EST Follow up call for cough, sob reported yesterday. Spoke with pt who reports she is doing "fine" today. Says that the cough has resolved and she is not any more sob than her usual when she is up moving around. Notes some swelling in her ankles, but has not weighed for 5 days per [facility]. Pt just getting up and has not eaten or drank anything. Pt agreeable to weigh while RNCM on the phone. Wt 160.2 lbs which is around where her weight has been runningrecently. Denies any concerns or complaints today. Reinforced to weigh daily , first thing in am before eating,drinking. Low sodium diet Fluids <2 L per day Continue monitoring for signs of fever,chills, coughing, sore throat, etc and report to [facility]. Pt has scheduled home visit for tomorrow with RNCM. documented in this encounter Plan of Treatment Upcoming Encounters Date Type Department Care Team (Late st Contact Info) Description 02/26/2023 4:00 PM EST Home Visit [place] [facility] [address] [place] [address] Lana Lieberman, RN [address] [place] [address] 04/13/2023 3:40 PM EST Office Visit Family Medicine [address] [place] [phone] Marla Tan MD [address] [place] [address] [place] [phone] Health Maintenance Due Date Last Done Comments [...] Additional history exists CKD HGB USE SMARTSET 64954 10/05/202310/04, 10/04/2022, 07/06/2022, Additional history exists CKD PHOS USE SMARTSET 40146 10/05/2023 0807/2022, 06/08/2021, 09/07/2020, Additional history exists [...] filedocumented as of this encounter Care Teams [id number] Consultant Relationship Specialty Start Date End Date Con Coughlin MD [address] [place] [address] [place] [phone] PCP - General Family Medicine 06/30/14 documented as of this encounter
--- OUTSIDE RECORDS SUMMARY | 2023-02-26 23:23 | External Medical Summary | Summary of Care ---
Author Name Unknown Organization [facility] Address [address] [place] [address] Phone [phone] Care Team Providers Care Patient Relations Coordinator Name Role Phone Con Garcia MD Primary Care Provider Reason for Visit * Reason Onset Date Comments Medication Refill 02/07/2023 Encounter Details Date Type Department Care Team (Late st Contact Info) Description 02/07/2023 Refill Family Medicine [address] [place] [phone] Con Garcia MD [address] [place] [address] [place] [address] Allergies Active Allergy Reactions Criticality Noted Date Comments Ergotamine 03/01/2000 vomit Nitroglycerin 03/14/2007 vomitting documented as of this encounter (statuses as of 02/07/2023) Medications Medication Sig Dispensed Refills Start Date [...] Wed, Fri. 45 Capsule 1 02/07/2023 Active Calcitriol 0.25 MCG Oral Capsule (Rocaltrol) Take 1 Capsule by mouth in the morning. M-W-- three days a week . 0 12/15/2022 3 Discontinue d(Refill) documented as of this encounter (statuses as of 02/07/2023) Active Problems Problem Noted Date Diagnosed Date [...] her pain concerns. She is aware [facility] does not manage chronic pain meds. With her history of confusion, would recommend against use of narcotic medication. Mild aortic stenosis 07/27/2021 Last Assessment & Plan: Following with cardiology Aortocoronary bypass status 03/09/2021 Chronic atrial fibrillation 03/01/2021 Overview: new onset, [facility] on apixaban Last Assessment & 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[place] co ronary artery of [place] heart without angina pectoris Last Assessment & Plan: Stable no angina -continue rosuvastatin, metopropolol, Anxiety state Last Assessment & Plan: Stable on buspar, Primary hypertension Gastroesophageal reflux dise ase with esophagitis without hemorrhage Last Assessment & Plan: symptoms controlled on pantoprazole Scoliosis of lumbar spine Mixed incontinence urge and stress (male)(female ) documented as of this encounter (statuses as of 02/07/2023) Resolved Problems Problem Noted Date Diagnosed Date [...] ulcer 06/30/2014 06/26/2017 Overview: hgb 7.4 admitted [facility] CKD (chronic kidney disease) stage [...] as of this encounter (statuses as of 02/07/2023) Immunizations Name Administration Dates Next Due COVID-19 [...] Telephone Encounter - Con Garcia MD - 02/07/2023 11:23 AM ESTSigned Prescriptions: Disp Refills Calcitriol 0.25 MCG Oral Capsule (Rocaltro*45 Cap*1 Sig: Take 1 Capsule by mouth in the morning. Take 1 capsule by mouth Mon, Wed, Sun. Authorizing Provider: CON GARCIA * Telephone Encounter - Maylin Barfield RN - 02/07/2023 11:19 AM ESTPending Prescriptions: Disp Refills Calcitriol 0.25 MCG Oral Capsule (Rocaltro*45 Cap*1 Sig: Take 1 Capsule by mouth in the morning. --- three days a week . * Telephone Encounter - Maryana Falcon OSA - 02/07/2023 8:56 AM EST Did you pend patient's preferred pharmacy and medication before forwarding?yes [facility], [address] [place] Pending Prescriptions: Disp Refills Calcitriol 0.25 MCG Oral Capsule (Rocaltr* Sig: Take 1 Capsule by mouth in the morning. --- three days a week . Last Visit: 12/18/2022 (in office), 01/10/2023 (telemedicine) Next Visit: 02/09/2023 If no future appointments scheduled, and last appointment is greater than a year ago, please schedule patient for a follow-up appointment Last date the medication was ordered: 12/15/22 Is this request for a controlled substance?No [...] Care Team (Late st Contact Info) Description 02/09/2023 2:20 PM EST Office Visit [address] [phone] Delmer Valles MD [address] [place] [address] [place] [address] 02/26/2023 4:00 PM EST [facility] Visit [facility], [facility] [place] [address] Lana Lieberman, KHARI [address] [place] [address] 04/13/2023 3:40 PM EST Office Visit [address] [phone] Marla Tan MD [address] [place] [address] [place] [address] Health Maintenance Due Date Last Done Comments DTaP,Tdap,and Td Vaccines (1 - Tdap) 11/15/1957 Depression Screening 09/29/2020 09/30/2019 COVID-19 Vaccine ( season) 2022 04/19/2020, 04/04/2020, 03/22/2020, Additional history exists Influenza Vaccine (FLU shot) (#1) 2022 01/10/2022, 11/18/2020, 12/06/2019, Additional history exists Albumin/Creatinine Ratio 07/28/2023 023, 06/09/2020, 03/13/2019, Additional history exists TSH 07/28/2023 07/27/2022, 05/21, 06/09/2020, Additional history exists CKD HGB USE SMARTSET 68695 10/05/202310/04, 10/04/2022, 07/06/2022, Additional history exists CKD PHOS USE SMARTSET 62359 10/05/202309/19, 06/08/2021, 09/07/2020, Additional history exists Pneumococcal [...] filedocumented as of this encounter Care Teams Patient Relations Coordinator Relationship Specialty Start Date End Date Con Garcia MD [address] [place] [address] [place] [phone] PCP - General Family Medicine 06/30/14 documented as of this encounter
--- OUTSIDE RECORDS SUMMARY | 2023-02-26 23:23 | External Medical Summary | Summary of Care ---
Author Name Unknown Organization [facility] Address [address] [place] [address] Phone [phone] Care Team Providers Care Backup Sawyer Name Role Phone Con Coughlin MD Primary Care Provider [phone] Reason for Visit * Reason Onset Date Comments [facility]: Maintenance 02/05/2023 Encounter Details Date Type Department Care Team (Late st Contact Info) Description 02/05/2023 Telephone [facility] [place], [address] [address] [facility], Nurse [address] [address] [facility]: Maintenance Allergies Active Allergy Reactions Criticality Noted Date Comments Ergotamine 03/01/2000 vomit Nitroglycerin 03/14/2007 vomitting documented as of this encounter (statuses as of 02/05/2023) Medications Medication Sig Dispensed Refills Start Date [...] AT BEDTIME 90 Tablet 0 02/01/2023 Active documented as of this encounter (statuses as of 02/05/2023) Active Problems Problem Noted Date Diagnosed Date [...] BMP Pro-BNP Her weights are stable on [facility]. She appears euvolemic today. Spondylosis of lumbar [...] discuss her pain concerns. She is aware [facility] does not manage chronic pain meds. With her history of confusion, would recommend against use of narcotic medication. Mild aortic stenosis 07/27/2021 Last Assessment & Plan: Following with cardiology Aortocoronary bypass status 03/09/2021 Chronic atrial fibrillation 03/01/2021 Overview: new onset, [facility] on apixaban Last Assessment & Plan: [...] as of this encounter (statuses as of 02/05/2023) Resolved Problems Problem Noted Date Diagnosed Date [...] 06/26/2017 Overview: hgb 7.4 admitted [facility] CKD (chronic kidney disease) stage 3, [...] as of this encounter (statuses as of 02/05/2023) Immunizations Name Administration Dates Next Due COVID-19 [...] Telephone Encounter - Shelby Arroyo LPN - 02/05/2023 9:12 AM EST Call to patient to let her know of RNCM appt later today Patient aware documented in this encounter Plan of Treatment Upcoming Encounters Date Type Department Care Team (Late st Contact Info) Description 02/05/2023 4:00 PM EST Home Visit [facility] [address] [place] [address] Lana Lieberman RN [address] [place] [place] [address] 02/07/2023 12:30 PM EST Office Visit [address] [place] [phone] Wilma Varghese [address] [place] [address] 02/09/2023 2:20 PM EST Office Visit [address] [phone] Delmer Valles MD [address] [place] [address] [place] [address] 02/26/2023 4:00 PM EST [facility] Visit [facility] [place] [address] Lana Lieberman RN [address] [place] [address] 04/13/2023 3:40 PM EST Office Visit [address] [phone] Marla Tan MD [address] [place] [address] [place] [address] Health Maintenance Due Date Last Done Comments [...] Additional history exists CKD HGB USE SMARTSET 08171 10/05/202310/04, 10/04/2022, 07/06/2022, Additional history exists CKD PHOS USE SMARTSET 95243 10/05/202309/19, 06/08/2021, 09/07/2020, Additional history exists Pneumococcal [...] Date End Date Con Coughlin MD [address] [place] [address] [place] [address] PCP - General Family Medicine 06/30/14 documented as of this encounter
--- OUTSIDE RECORDS SUMMARY | 2023-02-26 23:23 | External Medical Summary | Summary of Care ---
Author Name Unknown Organization [facility] Address [address] [facility] [place] [address] Phone [phone] Care Team Providers Care Survey Research Analyst Name Role Phone Con Coughlin MD Primary Care Provider [phone] Reason for Visit * Reason Comments [facility]: Acute Encounter Details Date Type Department Care Team (Late st Contact Info) Description 02/16/2023 12:30 PM EST Home Visit [facility], [facility] [address] [place] [address] Lana Lieberman, KHARI [address] [place] [address] Allergies Active Allergy Reactions Criticality Noted Date Comments Ergotamine 03/01/2000 vomit Nitroglycerin 03/14/2007 vomitting documented as of this encounter (statuses as of 02/16/2023) Medications Medication Sig Dispensed Refills Start Date [...] Wed, Fri. 45 Capsule 1 02/07/2023 Active documented as of this encounter (statuses as of 02/16/2023) Active Problems Problem Noted Date Diagnosed Date [...] discuss her pain concerns. She is aware [facility] does not manage chronic pain meds. With her history of confusion, would recommend against use of narcotic medication. 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 Last Assessment & Plan: Stable no angina -continue rosuvastatin, metopropolol, Anxiety state Last Assessment & Plan: Stable on buspar, Primary hypertension Gastroesophageal reflux dise ase with esophagitis without hemorrhage Last Assessment & Plan: symptoms controlled on pantoprazole Scoliosis of lumbar spine Mixed incontinence urge and stress (male)(female ) documented as of this encounter (statuses as of 02/16/2023) Resolved Problems Problem Noted Date Diagnosed Date [...] 06/30/2014 06/26/2017 Overview: hgb 7.4 admitted [facility] CKD (chronic kidney disease) stage 3, [...] as of this encounter (statuses as of 02/16/2023) Immunizations Name Administration Dates Next Due COVID-19 [...] Reading Time Taken Comments Blood Pressure 110/60 02/16/2023 1:58 PM EST Pulse 78 02/16/2023 1:58 PM EST Temperature 36.6 C (97.9 F) 02/16/2023 1:58 PM ES T Respiratory Rate 18 02/16/2023 1:58 PM EST Oxygen Saturation 98% 02/16/2023 1:58 PM EST Inhaled Oxygen Concentration - - Weight - - Height - - Body Mass Index - - documented in this encounter Progress Notes * Lana Lieberman RN - 02/16/2023 1:56 PM EST [facility] Visit Date: 02/16/2023 Time: 1:56 PM Name: Zoya Howard : 1938 Current Concerns: Patient seen for acute- report of weakness/ nausea x 1 week. Has not taken pills for 5 days. Reported knees buckled prior to arrival and was stuck in bed. Drinking coffee on arrival- has water at bedside. Skin turgor good. Caregiver that knows patient very well arrived at the same time as this nurse. Caregiver reports she has called patient daily and patient reports taking medications regularly up an until Sunday. Alert and oriented- did not realize has 3 tabs of zofran in home. Zofran 4mg given at time of visit. Pharmacy to drop off refill later in afternoon. water project manager will make sure patient gets med. VS wnl Lungs clear bilaterally Sob with exertion No LE edema noted Voiding without difficulty Bowels wnl- denies black stools. States earlier in week but has resolved. Appetite fair- caregiver making patient food during visit. Taking fluids- drank two small glasses during visit~400ml- unsure of how much coffee she has had thus far. Took morning medications as well. Report nausea has almost completely subsided at end of visit. No recent weights on [facility]- has not weighed since last RN CM visit despite encouragement. Problems/Symptoms: Review of Systems Constitutional: Negative. HENT: Negative. Eyes: Negative. Respiratory: Positive for shortness of breath. Cardiovascular: Negative. Gastrointestinal: Positive for nausea. Endocrine: Negative. Genitourinary: Negative. Musculoskeletal: Positive for gait problem. Hematological: Negative. Psychiatric/Behavioral: Negative. Physical Exam: BP 110/60 (BP Site: Left Arm, BP Position: Sitting, BP Cuff Size: Regular) | Pulse 78 | Temp 36.6 C (97.9 F) (Tympanic) | Resp 18 | SpO2 [...] Behavior normal. MAH-10 Completed this Visit: No. Routine visit Treatment/Plan: Fluids encouraged- other than coffee/tea Continue medications as prescribed Keep all upcoming MD appointments- aware of appointment 02/20/23 with PCP Fall precautions- walker with ambulation Low na diet [facility] scales- encouraged to weigh daily Monitor stools RN CM follow up in one day via phone Home Interventions Provided: Reinforced current Plan of Care, including self-management and medication regimen Patient Needs to Remember: Call [facility] with any medical concerns/ red flags Referrals Needed: N/a Follow Up: Is there cellular connectivity/connectivity in the home? No Does the patient have internet in the home? No Patient encouraged to call the intake phone number for all urgent but not emergent issues. Scheduled to follow up with patient in 1 day via phone. Lana Schuler RN 02/16/2023 1:56 PM documented in this encounter Plan of Treatment Upcoming Encounters Date Type Department Care Team (Late st Contact Info) Description 02/17/2023 9:30 AM EST Scheduled Telephone [facility], [place] [address] [place] [address] [facility], Nurse [address] [place] [address] 02/18/2023 12:00 PM EST Scheduled Telephone [facility], [place] [address] [place] [address] [facility], Nurse [address] [place] [address] 02/20/2023 3:00 PM EST Office Visit Family Medicine [address] [place] [phone] Con Coughlin MD [address] [place] [address] [place] [address] 02/26/2023 4:00 PM EST Home Visit [facility], [facility] [address] [address] Lana Lieberman, KHARI 132 [facility] [place] [address] 04/13/2023 3:40 PM EST Office Visit Family Medicine [address] [place] [phone] Marla Tan MD [address] [place] [address] [place] [address] Health Maintenance Due Date Last Done Comments [...] Additional history exists CKD HGB USE SMARTSET 10742 10/05/202310/04, 10/04/2022, 07/06/2022, Additional history exists CKD PHOS USE SMARTSET 54050 10/05/202309/19, 06/08/2021, 09/07/2020, Additional history exists Pneumococcal [...] filedocumented as of this encounter Care Teams Survey Research Analyst Relationship Specialty Start Date End Date Pilcarlene, Con A, MD [address] [place] [address] [place] [address] PCP - General Family Medicine 06/30/14 documented as of this encounter
--- OUTSIDE RECORDS SUMMARY | 2023-02-26 23:23 | External Medical Summary | Summary of Care ---
Author Name Unknown Organization [facility] Address [address] [facility] [address] Phone [phone] Care Team Providers Care Cable Cutter And Swager Name Role Phone Con Coughlin MD Primary Care Provider [phone] Reason for Visit * Reason Onset Date Comments [facility]: Maintenance 02/17/2023 Encounter Details Date Type Department Care Team (Late st Contact Info) Description 02/17/2023 9:30 AM EST Scheduled Telephone [facility], [facility] 132 [place] [address] [facility], Nurse [facility] [address] [place] [address] Allergies Active Allergy Reactions Criticality Noted Date Comments Ergotamine 03/01/2000 vomit Nitroglycerin 03/14/2007 vomitting documented as of this encounter (statuses as of 02/17/2023) Medications Medication Sig Dispensed Refills Start Date [...] as of this encounter (statuses as of 02/17/2023) Active Problems Problem Noted Date Diagnosed Date [...] Regimen: Beta Sha Therapy: Metoprolol Succinate (ER) VKIKI Inhibitor/ARB Therapy: Other: none Diuretic therapy: none [...] replacement status 09/09/2002 Atherosclerosis of [place] co ronary artery of [place] heart without angina pectoris Last Assessment & Plan: Stable no angina -continue rosuvastatin, metopropolol, Anxiety state Last Assessment & Plan: Stable on buspar, Primary hypertension Gastroesophageal reflux dise ase with esophagitis without hemorrhage Last Assessment & Plan: symptoms controlled on pantoprazole Scoliosis of lumbar spine Mixed incontinence urge and stress (male)(female ) documented as of this encounter (statuses as of 02/17/2023) Resolved Problems Problem Noted Date Diagnosed Date [...] as of this encounter (statuses as of 02/17/2023) Immunizations Name Administration Dates Next Due COVID-19 [...] Telephone Encounter - Deana Mobley RN - 02/17/2023 8:47 AM EST Telephone call to pt to f/u on acute visit yesterday for nausea. Pt states she is doing better. She denies any further nausea - states she is taking the Zofran if she feels nauseated but denies any at this time. She confirms that she is taking her medications, states "I'm back on track now". States she is eating and drinking without issue. On for f/u call again tomorrow. Aware to call [facility] if any concerns/red flags arise. documented in this encounter Plan of Treatment Upcoming Encounters Date Type Department Care Team (Late st Contact Info) Description 02/18/2023 12:00 PM EST Scheduled [facility]phone [facility], [address] [place] [address] [facility], Nurse [address] [place] [address] 02/20/2023 3:00 PM EST Office Visit [address] [phone] Con Coughlin MD [address] [place] [address] [place] [address] 02/26/2023 4:00 PM EST Home Visit [facility], [facility] 132 [facility] [place] [address] Lana Lieberman RN 132 [facility] [place] [address] 04/13/2023 3:40 PM EST Office Visit [address] [phone] Marla Tan MD [address] [place] [address] [place] [address] Health Maintenance Due Date Last Done Comments DTaP,Tdap,and Td Vaccines (1 - Tdap) 11/15/1957 Depression Screening 09/29/2020 09/30/2019 COVID-19 Vaccine (2022- season) 2022 04/19/2020, 04/04/2020, 03/22/2020, Additional history exists Influenza Vaccine (FLU shot) (#1) 2022 01/10/2022, 11/18/2020, 12/06/2019, Additional history exists Albumin/Creatinine Ratio 07/28/2023 023, 06/09/2020, 03/13/2019, Additional history exists TSH 07/28/2023 07/27/2022, 05/21, 06/09/2020, Additional history exists CKD HGB USE SMARTSET 42805 10/05/202310/04, 10/04/2022, 07/06/2022, Additional history exists CKD PHOS USE SMARTSET 17252 10/05/202309/19, 06/08/2021, 09/07/2020, Additional history exists Pneumococcal [...] filedocumented as of this encounter Care Teams Cable Cutter And Swager Relationship Specialty Start Date End Date Con Coughlin MD [address] [place] [address] [place] [address] PCP - General Family Medicine 06/30/14 documented as of this encounter
--- OUTSIDE RECORDS SUMMARY | 2023-02-26 23:23 | External Medical Summary | Summary of Care ---
Author Name Unknown Organization [facility] Address [address] [place] [facility] [place] [place] [place] [address] Phone [phone] Care Team Providers Care Career Information Specialist Name Role Phone Con Coughlin MD Primary Care Provider [phone] Reason for Visit * Reason Comments [facility]: Maintenance Encounter Details Date Type Department Care Team (Late st Contact Info) Description 02/05/2023 4:00 PM EST [facility] Visit [facility], [facility] [address] [place] [address] Lana Lieberman, KHARI [address] [place] [address] Allergies Active Allergy Reactions Criticality Noted Date Comments Ergotamine 03/01/2000 vomit Nitroglycerin 03/14/2007 vomitting documented as of this encounter (statuses as of 02/06/2023) Medications Medication Sig Dispensed Refills Start Date [...] as of this encounter (statuses as of 02/06/2023) Active Problems Problem Noted Date Diagnosed Date [...] Chronic atrial fibrillation 03/01/2021 Overview: new onset, [facility] on apixaban Last Assessment & [...] as of this encounter (statuses as of 02/06/2023) Resolved Problems Problem Noted Date Diagnosed Date [...] ulcer 06/30/2014 06/26/2017 Overview: hgb 7.4 admitted [facility] CKD (chronic kidney disease) stage [...] as of this encounter (statuses as of 02/06/2023) Immunizations Name Administration Dates Next Due COVID-19 [...] Sign Reading Time Taken Comments Blood Pressure 102/58 02/05/2023 3:16 PM EST Pulse 68 02/05/2023 3:16 PM EST Temperature 36.7 C (98.1 F) 02/05/2023 3:16 PM ES T Respiratory Rate 18 02/05/2023 3:16 PM EST Oxygen Saturation 98% 02/05/2023 3:16 PM EST Inhaled Oxygen Concentration - - Weight - - Height - - Body Mass Index - - documented in this encounter Progress Notes * Lana Lieberman RN - 02/05/2023 2:48 PM EST [facility] Glass Polisher Visit Date: 02/05/2023 Time: 2:48 PM Name: Zoya Howard : 1938 Current Concerns: Patient seen for GARCÍA#1- s/p utilization r/t CHF, pneumonia. Completed Cefdinir/Azithromycin. No changes in medications- recommendation for her to take diuretic as needed basis on discharge. Has Torsemide in home- has upcoming PCP appointment- will discuss at that time Denies chest discomfort as reported this morning. Reports shortness of breath at baseline- States at noon today it's like a switch went off and feels much better. Has not been weighing as directed- no recent weight Long discussion regarding scale and importance of weighing every daily. Monitoring for s/sx's of CHF. Voices understanding. VS wnl Lungs clear slightly diminished Sob with exertion No LE edema noted Voiding without difficulty Bowels wnl- per report Appetite good Taking fluids Problems/Symptoms: Review of Systems Constitutional: Negative. HENT: Negative. Respiratory: Positive for shortness of breath. Cardiovascular: Negative. Gastrointestinal: Negative. Genitourinary: Negative. Musculoskeletal: Positive for gait problem. Skin: Negative. Hematological: Negative. Psychiatric/Behavioral: Negative. Physical Exam: BP 102/58 (BP Site: Left Arm, BP Position: Sitting, BP Cuff Size: Regular) | Pulse 68 | Temp 36.7 C (98.1 F) (Tympanic) | Resp 18 | SpO2 98% Pain 0 Physical Exam Constitutional: Appearance: Normal appearance. Cardiovascular: Rate and Rhythm: Normal rate and regular rhythm. Pulses: Normal pulses. Pulmonary: Effort: Pulmonary effort is normal. Breath sounds: Normal breath sounds. Abdominal: General: Bowel sounds are normal. Musculoskeletal: General: Normal range of motion. Skin: General: Skin is warm and dry. Capillary Refill: Capillary refill takes 2 to 3 seconds. Neurological: General: No focal deficit present. Mental Status: She is alert and oriented to person, place, and time. Psychiatric: Mood and Affect: Mood normal. Behavior: Behavior normal. [facility]-10 Completed this Visit: Yes. [facility]-10: Reason Completed: Status post ED visit/hospital admission [facility]-10 ([facility]) Fall Risk Assessment Tool Age 65+: Yes (02/05/231499) Diagnosis (3 or more co-existing): Yes (02/05/231499) Prior history of falls within 3 months: No (02/05/231499) Incontinence: Yes (02/05/231499) Visual impairment: No (02/05/231499) Impaired functional mobility: Yes (02/05/231499) Environmental hazards: No (02/05/231499) Poly Pharmacy (4 or more prescriptions - any type): Yes (02/05/231499) Pain affecting level of function: No (02/05/231499) Cognitive impairment: Yes (02/05/231499) Score - a score of 4 or more is considered at risk for fallin (02/05/231499) [facility]-10 Interventions: Fall education provided, reviewed/provided Fall brochure Treatment/Plan: Weigh daily- AMC scale Low na diet Elevate ble prn edema Continue medications as prescribed Keep all upcoming MD appointments- F/U with primary care- aware of appointment Fall precautions- walker KHARI CM follow up in 3 weeks Home Interventions Provided: Reinforced current Plan [...] Scheduled to follow up with patient in 3 weeks. Lana Schuler RN 02/05/2023 2:48 PM documented in this encounter Plan of Treatment Upcoming Encounters Date Type Department Care Team (Late st Contact Info) Description 02/09/2023 2:20 PM EST Office Visit Family [address] [phone] Delmer Valles MD [address] [place] [address] [place] [address] 02/26/2023 4:00 PM EST Home Visit [facility] [address] [place] [address] Lana Lieberman, KHARI [address] [place] [address] 04/13/2023 3:40 PM EST Office Visit Family [address] [phone] Marla Tan MD [address] [place] [address] [place] [address] Health Maintenance Due Date Last Done Comments [...] Additional history exists CKD HGB USE SMARTSET 15039 10/05/202310/04, 10/04/2022, 07/06/2022, Additional history exists CKD PHOS USE SMARTSET 83233 10/05/202309/19, 06/08/2021, 09/07/2020, Additional history exists Pneumococcal [...] filedocumented as of this encounter Care Teams Career Information Specialist Relationship Specialty Start Date End Date Con Coughlin MD [address] [place] [address] [place] [address] PCP - General Family Medicine 06/30/14 documented as of this encounter
--- OUTSIDE RECORDS SUMMARY | 2023-02-26 23:23 | External Medical Summary | Summary of Care ---
Author Name Unknown Organization [facility] Address [address] [place] [facility] [place] [place] [address] Phone [phone] Care Team Providers Care Executive Communications Manager Name Role Phone Con Coughlin MD Primary Care Provider [phone] Reason for Visit * Reason Onset Date Comments [facility]: Acute 02/16/2023 Encounter Details Date Type Department Care Team (Late st Contact Info) Description 02/16/2023 Telephone [facility], [facility] [address] [facility] [place] [address] [facility], Nurse [address] [place] [address] [facility]: Acute Allergies Active Allergy Reactions Criticality Noted Date [...] discuss her pain concerns. She is aware [facility] does not manage chronic pain meds. With her history of confusion, would recommend against use of narcotic medication. 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 I agree w/ the advice offered via phone by our intake nursing team. Agree with acute visit. Please let me know via encounter or TT message if there is any change Thank you in advance, I appreciate it. Rocael Rashid PA-C * Telephone Encounter - Nirali Peacock RN - 02/16/2023 11:28 AM EST Communication Note Name: Zoya Howard Situation: 84 yo female in [place] Background: HF, CKD, Afib, GERD Assessment: Pt states the she has not felt well since the day before [place]. She has mostly stayed "confined to bed". She has been sick to her stomach, nausea, dry heaves. Does not have zofran in the home. C/o being very weak, "general malaise" per pt. She denies any emesis. Denies any diarrhea.Denies fever or chills. Denies cough. She reports having a little SOB and a little chest pain yesterday- felt she tried to do too much. She then relaxed and it passed quickly. She has not taken any of her medications for a week. She denies feeling lightheaded or dizzy. She states that this morning she got OOB to go to the bathroom and her "legs buckled" and she slid to the floor. Denies falling, d enies hitting head, denies injury. She was able to get herself back up. Recommendation: acute HV Care team availability: CUCO Lieberman RN Acute nurse: n/a MIH: n/a [facility] general office associate Acute Call Date: 02/16/2023 Time: 11:51 AM Name: Zoya Howard : 1938 Caller: Avel- physical therapy Relationship to pt- Dress Designer of PT No chief complaint on file. HPI: Zoya Howard is a 84 year old female whose physical therapist's contingents supervisor is calling [facility] to report that the pt c/o being sick for the past 7-10 days. Nursing Assessment: Patient's chief complaint for this call: Weakness/dizziness Fall Received call from Avel with [facility]. His physical therapist is in the pt's home now and the pt told them that she has been not feeling well since the day before . She has mostly stayed "confined to bed". She has been sick to her stomach, nausea, dry heaves. Does not have zofran in the home. C/o being very weak, "general malaise" per pt. She denies any emesis. Denies any diarrhea. Denies fever or chills. Denies cough. She reports having a little SOB and a little chest pain yesterday- felt she tried to do too much. She then relaxed and it passed quickly. She has not taken any of her medications for a week. She denies feeling lightheaded or dizzy. She states that this morning she got OOB to go to the bathroom and her "legs buckled" and she slid to the floor. Denies falling, denies hitting head, denies injury. She was able to get herself back up. Pain Denies pain Baseline Assessment Able to performing ADLs at baseline (walking, daily tasks, etc.): No Chief Complaint is related to a chronic condition: No Patient prescribed oxygen? No Patient has been ordered DME equipment (assistive devices, respiratory equipment, etc.): Yes Describe DME devices: rollator walker Patient is using DME device as directed: Yes Medication Reconciliation: (See medication list) Received flu shot this season: Unknown Taking medication as ordered: No, has not taken her meds for the past week Medications ordered/taking to treat reason for call: No She did call the pharmacy to refill her thomas Heart failure symptoms: No COPD exacerbation symptoms: No Reinforcement Education: Rest Safety Sip on clear fluids, one sip every 5 minutes Try to eat something bland in order to be able to take medications Monitor for worsening symptoms- fever, chills, NVD, increased weakness, fatigue, lethargy, falls, dizziness or lightheadedness, SOB, chest pain Treatment/Plan: (need to report) Level of call: Acute Appointment scheduled for same day: Yes Solution Design Engineer Provider Name: Kade Lieberman RNCM will see the pt this afternoon- pt is aware of same Treatment plan until appointment: as above Will send to Provider for orders/ recommendations Scheduled 24/ 48 hr f/u calls Call back instructions provided to patient. Nirali GLASS, RN [facility] Intake Triage Coordinator [phone] documented in this encounter Plan of Treatment Upcoming Encounters Date Type Department Care Team (Late st Contact Info) Description 02/17/2023 9:30 AM EST [facility]uled [facility] [address] [place] [address] [facility], Nurse [address] [place] [address] 02/18/2023 12:00 PM EST [facility]uled Telephone [facility] [address] [place] [address] [facility], Nurse [facility] [address] [facility] [place] [address] 02/20/2023 3:00 PM EST Office Visit [address] [phone] Con Coughlin MD [address] [place] [address] [place] [address] 02/26/2023 4:00 PM EST [facility] [address] [facility] [place] [address] Lana Lieberman RN [address] [facility] [place] [address] 04/13/2023 3:40 PM EST Office Visit [address] [phone] Marla Tan MD [address] [place] [address] [place] [address] Health Maintenance Due Date Last Done Comments [...] Additional history exists CKD HGB USE SMARTSET 63258 10/05/202310/04, 10/04/2022, 07/06/2022, Additional history exists CKD PHOS USE SMARTSET 78430 10/05/202309/19, 06/08/2021, 09/07/2020, Additional history exists Pneumococcal [...] filedocumented as of this encounter Care Teams Executive Communications Manager Relationship Specialty Start Date End Date Con Coughlin MD [address] [place] [address] [place] [phone] PCP - General Family Medicine 06/30/14 documented as of this encounter
--- OUTSIDE RECORDS SUMMARY | 2023-02-26 23:23 | External Medical Summary | Summary of Care ---
Author Name Unknown Organization [facility] Address [address] [facility] [place] [address] Phone [phone] Care Team Providers Care Word Processor Operator Name Role Phone Con Coughlin MD Primary Care Provider [phone] Reason for Visit * Reason Onset Date Comments [facility]: Acute 02/16/2023 Encounter Details Date Type Department Care Team (Late st Contact Info) Description 02/16/2023 Telephone [facility], [facility] [address] [facility] [place] [address] [facility], Nurse [address] [place] [address] [facility]: Acute Allergies Active Allergy [...] discuss her pain concerns. She is aware [facility] does not manage chronic pain meds. With her history of confusion, would recommend against use of narcotic medication. 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 She has mostly stayed "confined to bed". [...] nurse: n/a MIH: n/a [facility] leather currier Acute Call Date: 02/16/2023 Time: 11:51 AM Name: Zoya Howard : 1938 Caller: Avel- physical therapy Relationship to pt- Talent Acquisition Sourcer of PT No chief complaint on file. HPI: Zoya Howard is a 84 year old female whose physical therapist's ornamental ironworking supervisor is calling [facility] to report that the pt c/o being sick for the past 7-10 days. Nursing Assessment: Patient's chief complaint for this call: Weakness/dizziness Fall Received call from Avel with [facility]. His physical therapist is in the [...] Acute Appointment scheduled for same day: Yes Dredge Master Provider Name: Kade Lieberman RNCM will see the pt this afternoon- pt is aware of same Treatment plan until appointment: as above Will send to Provider for orders/ recommendations Scheduled 24/ 48 hr f/u calls Call back instructions provided to patient. Nirali GLASS, RN [facility] Intake Triage Coordinator [phone] documented in this encounter Plan of Treatment Upcoming Encounters Date Type Department Care Team (Late st Contact Info) Description 02/17/2023 9:30 AM EST [facility]uled [facility] [address] [place] [address] [facility] Nurse [address] [place] [address] 02/18/2023 12:00 PM EST [facility]uled Telephone [facility] [address] [place] [address] [facility] Nurse [address] [place] [address] 02/20/2023 3:00 PM EST Office Visit Family Medicine [address] [place] [address] Con Coughlin MD [address] [place] [address] [place] [address] 02/26/2023 4:00 PM EST [facility] [address] [place] [address] Lana Lieberman, RN [address] [place] [address] 04/13/2023 3:40 PM EST Office Visit [address] [place] [phone] Marla Tan MD [address] [place] [address] [place] [address] Health Maintenance Due Date Last Done Comments [...] Additional history exists CKD HGB USE SMARTSET 86513 10/05/202310/04, 10/04/2022, 07/06/2022, Additional history exists CKD PHOS USE SMARTSET 93986 10/05/202309/19, 06/08/2021, 09/07/2020, Additional history exists Pneumococcal [...] filedocumented as of this encounter Care Teams Word Processor Operator Relationship Specialty Start Date End Date Con Coughlin MD [address] [place] [address] [place] [phone] PCP - General Family Medicine 06/30/14 documented as of this encounter
--- OUTSIDE RECORDS SUMMARY | 2023-02-26 23:23 | External Medical Summary | Summary of Care ---
Author Name Unknown Organization [facility] Address [address] [place] [address] Phone [phone] Care Team Providers Care Beader Name Role Phone Con Garcia MD Primary Care Provider Reason for Visit * Reason Comments eRx-Medication Refill Encounter Details Date Type Department Care Team (Late st Contact Info) Description 02/17/2023 Refill Family Medicine [address] [place] [phone] Con Garcia MD [address] [place] [address] [place] [address] Nausea Allergies Active Allergy Reactions Criticality Noted Date [...] 12/18/2022 Active Benzonatate 100 MG Oral Capsule (Tessalniurka Brand)Indicatio ns:Viral URI with cough Take 1 Capsule by mouth 3 times a day as needed for Cough. 30 Capsule 1 01/15/2023 Active Metoprolol Succinate ER 50 MG Oral Tablet Extended Release 24 Hour (toPROL XL) Take 1 Tablet by mouth in the morning. 90 Tablet 1 01/16/2023 Active traZODone HCl 150 MG Oral Tablet (Desyrel)Indicat ions:Persistent insomnia One at bedtime 30 Tablet 5 01/17/2023 Active Rosuvastatin Calcium 10 MG Oral Tablet (Crestor)Indicat ions:Dyslipidemi a, goal LDL below 100 TAKE ONE TABLET [...] FOR NAUSEA 30 Tablet 1 02/20/2023 Active Ondansetron HCl 4 MG Oral Tablet (Zofran)Indicati ons:Nausea TAKE ONE TABLET BY MOUTH EVERY 6 HOURS NEEDED FOR NAUSEA 30 Tablet 1 01/15/2023 4 Discontinued documented as of this encounter (statuses [...] discuss her pain concerns. She is aware [facility] does not manage chronic pain meds. With her history of confusion, would recommend against use of narcotic medication. 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[place] co ronary artery of [place] heart without angina pectoris Last Assessment & [...] 06/30/2014 06/26/2017 Overview: hgb 7.4 admitted [facility] CKD (chronic kidney disease) stage 3, GFR [...] Telephone Encounter - Con Garcia MD - 02/20/2023 8:42 AM ESTSigned Prescriptions: Disp Refills Ondansetron HCl 4 MG Oral Tablet (Zofran) 30 Tab*1 Sig: TAKE ONE TABLET BY MOUTH EVERY 6 HOURS NEEDED FOR NAUSEA Authorizing Provider: CON GARCIA * Telephone Encounter - Alicia Atwood [facility] - 02/20/2023 8:42 AM ESTPending Prescriptions: Disp Refills Ondansetron HCl 4 MG Oral Tablet [Pharmacy*30 Tab*1 Sig: TAKE ONE TABLET BY MOUTH EVERY 6 HOURS NEEDED FOR NAUSEA * Telephone Encounter - Alicia Atwood [facility] - 02/20/2023 8:41 AM EST Unable to authorize medication refills for pended medication(s) at this time. Part of the protocol criteria used for refill authorization was not satisfied. Patient needs is currently taking other medications that may prolong QT interval. Please approve if appropriate. Thanks, Alicia Atwood Clinical Pharmacist [facility] ([facility]) (Formerly Telepharmacy) [phone] 02/20/2023, 8:41 AM * Telephone Encounter - Alicia Atwood [facility] - 02/20/2023 8:41 AM EST Did you pend patient's preferred pharmacy and medication before forwarding?yes Pharmacy: [facility], [address] [place] Pending Prescriptions: Disp Refills Ondansetron HCl 4 MG Oral Tablet (Zofran)*30 Tab*1 Sig: TAKE ONE TABLET BY MOUTH EVERY 6 HOURS NEEDED FOR NAUSEA Last Visit: 12/18/2022 (in office), 01/10/2023 (telemedicine) Next Visit: 02/20/2023 If no future appointments scheduled, and last appointment is greater than a year ago, please schedule patient for a follow-up appointment Last date the medication was ordered: 01/15/23 Is this request for a controlled substance?No [...] 02/20/2023 3:00 PM EST Office Visit Family [address] [phone] Con Garcia MD [address] [place] [address] [place] [address] 02/26/2023 4:00 PM EST Home Visit [facility] [address] [facility] [place] [address] Lana Lieberman, KHARI [address] [place] [address] 04/13/2023 3:40 PM EST Office Visit [address] [phone] Marla Tan MD [address] [place] [address] [place] [address] Health Maintenance Due Date Last Done Comments DTaP,Tdap,and Td Vaccines (1 - Tdap) 11/15/1957 Depression Screening 09/29/2020 09/30/2019 COVID-19 Vaccine ( season) 2022 04/19/2020, 04/04/2020, 03/22/2020, Additional history exists Influenza Vaccine (FLU shot) (#1) 2022 01/10/2022, 11/18/2020, 12/06/2019, Additional history exists Albumin/Creatinine Ratio 07/28/2023 023, 06/09/2020, 03/13/2019, Additional history exists TSH 07/28/2023 07/27/2022, 05/21, 06/09/2020, Additional history exists CKD HGB USE SMARTSET 43765 10/05/202310/04, 10/04/2022, 07/06/2022, Additional history exists CKD PHOS USE SMARTSET 01191 10/05/202309/19, 06/08/2021, 09/07/2020, Additional history exists Pneumococcal [...] alone documented in this encounter Care Teams Beader Relationship Specialty Start Date End Date Con Garcia MD [address] [place] [address] [place] [phone] PCP - General Family Medicine 06/30/14 documented as of this encounter
--- OUTSIDE RECORDS SUMMARY | 2023-02-26 23:23 | External Medical Summary | Summary of Care ---
Author Name Unknown Organization [facility] Address [address] [place] [address] Phone [phone] Care Team Providers Care Commissions Specialist Name Role Phone Con Coughlin MD Primary Care Provider [phone] Reason for Visit * Reason Onset Date Comments Encounter Created in Error 02/16/2023 Encounter Details Date Type Department Care Team (Late st Contact Info) Description 02/16/2023 Telephone [facility], [place] [facility] [address] [place] [address] Shelby Mcintyre PA-C [address] [place] [address] Encounter Created in Error Allergies Active Allergy Reactions Criticality Noted Date [...] discuss her pain concerns. She is aware [facility] does not manage chronic pain meds. With her history of confusion, would recommend against use of narcotic medication. 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[place] co ronary artery of elem heart without angina pectoris Last Assessment & [...] 06/26/2017 Overview: hgb 7.4 admitted [facility] CKD (chronic kidney disease) stage 3, GFR [...] Miscellaneous Notes * Telephone Encounter - Shelby Mcintyre PA-C - 02/16/2023 1:23 PM EST Error documented in this encounter Plan of Treatment Upcoming Encounters Date Type Department Care Team (Late st Contact Info) Description 02/17/2023 9:30 AM EST Scheduled Telephone [facility] [address] [address] [facility], Nurse [facility] [address] [address] 02/18/2023 12:00 PM EST Scheduled Telephone [facility] [address] [address] [facility], Nurse [facility] [address] [place] [address] 02/20/2023 3:00 PM EST Office Visit [address] [phone] Con Coughlin MD [address] [place] [address] [place] [phone] 02/26/2023 4:00 PM EST Home Visit [facility] [address] [place] [address] Lana Lieberman, KHARI [address] [place] [phone] 04/13/2023 3:40 PM EST Office Visit [address] [phone] Marla Tan MD [address] [place] [address] [place] [place] [address] Health Maintenance Due Date Last Done Comments [...] Additional history exists CKD HGB USE SMARTSET 57476 10/05/202310/04, 10/04/2022, 07/06/2022, Additional history exists CKD PHOS USE SMARTSET 81875 10/05/202309/19, 06/08/2021, 09/07/2020, Additional history exists Pneumococcal [...] filedocumented as of this encounter Care Teams Commissions Specialist Relationship Specialty Start Date End Date Con Coughlin MD [address] [place] [address] [place] [phone] PCP - General Family Medicine 06/30/14 documented as of this encounter
--- OUTSIDE RECORDS SUMMARY | 2023-02-26 23:23 | External Medical Summary | Summary of Care ---
Author Name Unknown Organization [facility] Address [address] [facility] [place] [address] Phone [phone] Care Team Providers Care Circulating Process Inspector Name Role Phone Con Coughlin MD Primary Care Provider [phone] Reason for Visit * Reason Onset Date Comments [facility]: Maintenance 02/18/2023 Encounter Details Date Type Department Care Team (Late st Contact Info) Description 02/18/2023 12:00 PM EST Scheduled Telephone [facility], [facility] [address] [place] [address] [facility], Nurse [facility] [address] [place] [address] Allergies Active Allergy Reactions Criticality Noted Date Comments Ergotamine 03/01/2000 vomit Nitroglycerin 03/14/2007 vomitting documented as of this encounter (statuses as of 02/18/2023) Medications Medication Sig Dispensed Refills Start Date [...] as of this encounter (statuses as of 02/18/2023) Active Problems Problem Noted Date Diagnosed Date [...] her pain concerns. She is aware [facility] does not manage chronic pain meds. With her history of confusion, would recommend against use of narcotic medication. 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[place] ronary artery of [place] heart without angina pectoris Last Assessment & Plan: Stable no angina -continue rosuvastatin, metopropolol, Anxiety state Last Assessment & Plan: Stable on buspar, Primary hypertension Gastroesophageal reflux dise ase with esophagitis without hemorrhage Last Assessment & Plan: symptoms controlled on pantoprazole Scoliosis of lumbar spine Mixed incontinence urge and stress (male)(female ) documented as of this encounter (statuses as of 02/18/2023) Resolved Problems Problem Noted Date Diagnosed Date [...] 06/30/2014 06/26/2017 Overview: hgb 7.4 admitted [facility] CKD (chronic kidney disease) stage 3, GFR [...] as of this encounter (statuses as of 02/18/2023) Immunizations Name Administration Dates Next Due COVID-19 [...] Telephone Encounter - Deana Mobley RN - 02/18/2023 9:11 AM EST Telephone call to pt to f/u on nausea, acute visit from Sunday. Pt states she is really feeling well. She is eating and drinking well. Appreciative of nurse visit on Sunday, feels nurse really helped her get back on track. Confirms she is taking meds Denies any concerns at this time. documented in this encounter Plan of Treatment Upcoming Encounters Date Type Department Care Team (Late st Contact Info) Description 02/20/2023 3:00 PM EST Office Visit Family Medicine [address] [place] [phone] Con Coughlin MD [address] [place] [address] [place] [phone] 02/26/2023 4:00 PM EST Home Visit [facility] [address] [place] [address] Lana Lieberman, KHARI [address] [place] [place] [phone] 04/13/2023 3:40 PM EST Office Visit [address] [place] [phone] Marla Tan MD [address] [place] [address] [address] [place] [address] Health Maintenance Due Date Last Done Comments DTaP,Tdap,and Td Vaccines (1 - Tdap) 11/15/1957 Depression Screening 09/29/2020 09/30/2019 COVID-19 Vaccine ( season) 2022 04/19/2020, 04/04/2020, 03/22/2020, Additional history exists Influenza Vaccine (FLU shot) (#1) 2022 01/10/2022, 11/18/2020, 12/06/2019, Additional history exists Albumin/Creatinine Ratio 07/28/2023 023, 06/09/2020, 03/13/2019, Additional history exists TSH 07/28/2023 07/27/2022, 05/21, 06/09/2020, Additional history exists CKD HGB USE SMARTSET 17719 10/05/202310/04, 10/04/2022, 07/06/2022, Additional history exists CKD PHOS USE SMARTSET 37773 10/05/202309/19, 06/08/2021, 09/07/2020, Additional history exists Pneumococcal [...] filedocumented as of this encounter Care Teams Circulating Process Inspector Relationship Specialty Start Date End Date Con Coughlin MD [address] [place] [address] [address] [phone] PCP - General Family Medicine 06/30/14 documented as of this encounter
[2023-02-27] MEDS: LEVOTHYROXINE SODIUM 100 MCG TABLET PO SCH (06:12)
[2023-02-27 07:11] LABS: Albumin Globulin Ratio 1.2 (0.9-2); Albumin Level 3.7 gm/dl (3.4-5.0); BUN Creatinine Ratio 19.1 (10-20); Bilirubin,Total 0.7 mg/dl (0.2-1.0); Calcium 10.1 mg/dl (8.6-10.3); Creatinine Clr Calc Pharmacy 32.9 ml/min; Est GFR (African American) 49.9 ml/min; Potassium 3.8 mmol/L (3.5-5.1); Total Protein 6.7 gm/dl (6.0-8.3)
[2023-02-27] MEDS: APIXABAN 5 MG TABLET PO SCH ×2 (07:47→20:35)
[2023-02-27] MEDS: METOPROLOL SUCC 50MG EXT REL TAB PO SCH (07:47)
[2023-02-27] MEDS: GABAPENTIN 300 MG CAP PO SCH ×3 (07:48→20:34)
[2023-02-27] MEDS: MELOXICAM 7.5 MG TAB PO SCH (07:48)
[2023-02-27] MEDS: busPIRone 5 MG TAB PO SCH ×2 (07:48→20:35)
[2023-02-27 07:51] LABS: Hematocrit (blood only) 36.3 % (37.0-47.0); Hemoglobin 11.5 g/dl (12.0-16.0); Mean Corpuscular Hemoglobin 29.3 pg (25.0-34.0); Mean Corpuscular Hgb Conc 31.7 g/dL (32.0-36.0); Mean Corpuscular Volume 92.4 fL (80.0-100.0); Mean Platelet Volume 10.3 fL (9.4-12.4); Platelet Count 203 K/uL (130-400); RDW Coefficient of Variation 15.5 % (11.5-14.5); RDW Standard Deviation 52.7 fL (36.4-46.3); Red Blood Count 3.93 M/uL (4.20-5.40); White Blood Count 6.09 K/ul (4.8-10.8)
--- NOTE | 2023-02-27 09:25 | XRay Report ---
SINGLE VIEW CHEST CLINICAL HISTORY: Atypical chest pain. FINDINGS: An AP, portable, upright chest radiograph is compared to study dated 02/26/2023. Correlation is made with chest CT dated 12/01/2021. The examination is degraded by portable technique and patient rotation. A hiatal hernia is noted. The patient is status post midline sternotomy. The heart is enla rged noting atherosclerotic calcification of the thoracic aorta. The pulmonary vasculature is noncong ested. Chronic interstitial thickening is similar to previous. There is mild bibasilar scarring/atele ctasis. The lungs and pleural spaces are otherwise clear. No pneumothorax is seen. The skeletal struc tures are osteopenic. The bony thorax is grossly intact. Bilateral shoulder arthroplasties are in helio ce. Degenerative change and scoliosis is noted in the spine. IMPRESSION: Cardiomegaly with no acute cardiopulmonary abnormality. No significant change from yester day. ACT 112: Negative or not required by law. Electronically signed by: Avel Calero M.D. 02/27/2023 9:24 AM
[2023-02-27 10:11] LABS: Troponin I High Sensitivity 10.6 pg/ml (0-14)
--- NOTE | 2023-02-27 11:57 | Electrocardiogram Report ---
Test Reason : Blood Pressure : / mmHG Vent. Rate : 081 BPM Atrial Rate : 081 BPM P-R Int : 220 ms QRS Dur : 080 ms QT Int : 382 ms P-R-T Axes : 059 038 024 degrees QTc Int : 443 ms Poor data quality, interpretation may be adversely affected Sinus rhythm with 1st degree A-V block Otherwise normal ECG When compared with ECG of 26-FEB-2023 16:05, No significant change was found Confirmed by Noah Adams ([id number]) on 02/27/2023 11:56:30 AM Referred By: REFERRED SELF Confirmed By:Noah Adams
--- NOTE | 2023-02-27 12:01 | Electrocardiogram Report ---
Test Reason : Blood Pressure : / mmHG Vent. Rate : 077 BPM Atrial Rate : 077 BPM P-R Int : 260 ms QRS Dur : 082 ms QT Int : 396 ms P-R-T Axes : 074 037 049 degrees QTc Int : 448 ms Sinus rhythm with 1st degree A-V block Otherwise normal ECG When compared with ECG of 26-FEB-2023 17:36, No significant change was found Confirmed by Noah Adams ([id number]) on 02/27/2023 12:00:48 PM Referred By: REFERRED SELF Confirmed By:Noah Adams
[2023-02-27] MEDS ORDERED: ACETAMINOPHEN 1,000 MG/100 ML VIAL IV ONE (12:26)
--- NOTE | 2023-02-27 13:00 | Hospitalist Progress Note ---
Date of Service February 27, 2023 Assessment & Plan (1) Atrial fibrillation with rapid ventricular response: (2) SOB (shortness of breath): (3) History of rheumatic fever: (4) Acute on chronic heart failure with preserved ejection fraction (HFpEF): (5) Anxiety: (6) Depression: Plan Ms. Howard is a 84 year old female that presented to the ED today with shortness of breath that has started over the past 2 days. She was recently admitted on January 30 for sepsis pneumonia and was discharged to her home. She reports that she has not taken her medications in 4 days. Patient reports that she does live alone at home and does her ADLs independently. CXR with ca rdiomegaly without acute cardiopulmonary process. No leukocytosis, otherwise labs unremarkable to this time. Magnesium and Phos pending. Initial troponin negative. Do not suspect ACS or other ischemic demand in nature. PMH includes: Atrial Fibrillation (On Eliquis),HFpEF, history of TIA, CAD, CKD stage III, hypothyroidism, depression, and GERD. Pt reports that she has a cardiac murmur since she was 3 years old after having rheumatic fever. She has never had cardiac intervention for this. Most recent ECHO 11/2022 EF 55-59%, LV wall motion normal, Mild aortic stenosis, trace pulmonic valve regurgitation, mild MR/TR, mild concentric LVH Atypical chest pain Hypertensive urgency on presentation Chest pain likely related to hypertension Admits to missing her home medications for 2 days No A-fib RVR--artifact on telemetry as per cardiology Anxiety, medication noncompliance and HTN likely contributing to chest discomfort --CXR: Cardiomegaly with no active disease in the chest. --EKG showed no signs of acute ischemia Troponin negative x 2 Normal procalcitonin BioFire negative Explained importance of medication compliance Continue metoprolol, Crestor Appreciate cardiology input Monitor BP, adjust medications as needed Check TSH HFpEF: Chronic No signs of acute exacerbation Continue home medications H/O P.Afib Continue metoprolol On Eliquis for anticoagulation H/O Rheumatic Fever: Chronic HLD: Chronic stable Continue rosuvastatin Hypothyroidism: Continue levothyroxine Depression Anxiety disorder Continue BuSpar DVT Px: Eliquis Code Status Full Code Disposition: Home as able Admission and Anticipated Discharge Date Admission Date: February 26, 2023 Subjective Patient is seen and examined at bedside Reported transient chest discomfort associated with LUE pain Chest pain resolved during encounter Discussed with cardiology today Denies any cough, dyspnea, nausea, vomiting, abdominal pain No new complaints Saturating well on room CXR today showed no acute process Review of Systems Review of Systems: All systems reviewed & are unremarkable except as noted in Subjective Physical Exam Physical Exam: Physical Exam: Vitals signs as noted above General Appearance:Moderately built and nourished, no apparent distress, Elderly Head: normocephalic, Atraumatic Eyes: normal inspection, EOMI Neck: supple, Trachea midline Respiratory/Chest: Decreased breath sounds, scattered crackles, No accessory muscle use Cardiovascular: S1, S2, + murmur Abdomen/GI:Soft, Non tender, Bowel sounds present Extremities/Musculoskeletal:normal inspection, no edema Neurologic/Psych:AAOX3, grossly no focal neurological deficits Skin: normal color, warm Results & Data Results & Data Vital Signs (Past 12 Hours) Vital Signs Temp Pulse Pulse Resp BP Pulse Ox O2 Del Method 02/27/23 11:44 36.8 C 76 18 161/94 H 96 Room Air 02/27/23 08:35 77 20 112/61 95 Room Air 02/27/23 08:30 65 02/27/23 08:20 74 19 115/69 95 Room Air 02/27/23 07:34 37.0 C 71 17 145/71 H 94 Room Air 02/27/23 02:18 36.7 C 75 16 116/51 L 95 Room Air Laboratory Results Short CBC 02/26/23 02/27/23 Range/Units 16:06 06:08 WBC 6.56 6.09 (4.8-10.8) K/ul Hgb 12.1 11.5 L (12.0-16.0) g/dl Hct 35.6 L 36.3 L (37.0-47.0) % Plt Count 198 203 (130-400) K/uL BMP 02/26/23 02/27/23 16:06 06:08 Sodium 139 141 Potassium 4.0 3.8 Chloride 107 108 H Carbon Dioxide 24 26 BUN 18 22 Creatinine 1.01 1.15 Glucose 85 98 Calcium 10.8 H 10.1 Liver Function 02/26/23 02/27/23 Range/Units 16:06 06:08 Total Bilirubin 1.0 0.7 (0.2-1.0) mg/dl AST 19 17 (13-39) U/L ALT 13 11 (7-52) U/L Alkaline Phosphatase 56 52 (34-104) U/L Albumin 4.1 3.7 (3.4-5.0) gm/dl Urine 02/26/23 Range/Units 17:25 Urine Color Yellow Urine Appearance Clear (Clear) Urine pH 8.5 H (4.5-7.5) Ur Specific Daniels 1.011 (1.000-1.030) Urine Protein Negative (Negative) Urine Glucose (UA) Negative (Negative) (6) Depression Depression Type: unspecified Qualified Code(s): F32.9 - Major depressive disorder, single episode, unspecified
--- NOTE | 2023-02-27 13:01 | Cardiology Consultation ---
Date of Consultation February 27, 2023 Assessment & Plan (1) Chest pain: (2) CAD (coronary artery disease): (3) S/P CABG x 1: (4) Paroxysmal A-fib: Plan 84-year-old woman with history of CAD (remote CABG), paroxysmal atrial fibrillation (sinus recently), and recent hospitalization for pneumonia is readmitted with chest and arm discomfort which appear to be noncardiac. Troponins unremarkable with flat curve overnight and ECGs during symptoms benign. Although her symptoms could be residual from her recent pneumonia, they do not have a pleuritic component. No clearly positional change either, but suspect musculoskeletal etiology amplified by her significant anxiety. Recommend short trial of IV Toradol or other NSAID for both therapeutic and diagnostic purposes. She is chronically anticoagulated with apixaban, but since she has been in sinus rhythm for the past several months (suspect A-fib earlier this admission was artifact) and might benefit from nonsteroidal anti-inflammatory treatment, would hold apixaban for now. After a short course of nonsteroidals, apixaban could be resumed as an outpatient for long-term antithrombotic prophylaxis. If she responds well to nonsteroidal, she could potentially be discharged later today. If she remains an inpatient, will continue to follow. Please arrange for follow-up cardiology appointment with me within the next few weeks after discharge History of Present Illness Reason for Consultation: HFpEF; SOB; AF RVR (non compliance with meds) Requesting Physician: Lalo Conte MD Attending Physician: Lalo Conte MD History of Present Illness 84-year-old woman well-known to me from outpatient care with history of CAD (SANDOVAL to LAD CABG 1998), mild to moderate valvular disease (/MR/TR), paroxysmal atrial fibrillation (metoprolol/apixaban), and prior mild HFpEF who was admitted January 2023 with pneumonia/mild volume overload and is now readmitted yesterday (02/26/2023) with chest and arm pain. Of note, she was hospitalized June 2022 with atypical chest pain and negative wo rkup. She did have recurrent atrial fibrillation November 2022, but remained in sinus rhythm during her January 2023 hospitalization and during the current admission. There was a notation of a brief tachycardia while she was in the ER, but review of telemetry shows that this was artifact related and that she remained in sinus rhythm without sinus tachycardia or atrial fibrillation. For unclear reasons, she was noncompliant with her usual medications and over the past few days noted dyspnea on exertion followed by transient chest discomfort and more sustained left arm pain. Her left arm discomfort lasted through the night and was 2/10 in severity this morning, however she intermittently notes it can worsen for a few minutes. She denies any pleuritic or positional component to the left arm discomfort. ECG obtained earlier today while she experienced chest and arm discomfort was unremarkable. Troponin values of 10.0 yesterday and 10.6 this morning were markedly lower than those seen during demand ischemia last month. She is anxious about the implications of her left arm discomfort but otherwise feels well. Aside from the arm discomfort, no other somatic complaints currentl y. Allergies Allergy/AdvReac Type Severity Reaction Status Date / Time nitroglycerin AdvReac Severe "PROJECTILE Verified 01/29/23 15:15 VOMITTING" ergotamine AdvReac Intermediate vomiting Verified 01/29/23 15:15 Home Medications Medication Instructions Recorded Confirmed Type levothyroxine 100 mcg tablet 100 mcg PO DAILYBB 01/23/18 02/26/23 History (Levoxyl) pantoprazole 40 mg tablet,delayed 40 mg PO AMHS 01/23/18 02/26/23 History release (Protonix) buspirone 10 mg tablet 10 mg PO BID #60 tabs 03/22/21 02/26/23 Rx gabapentin 300 mg capsule 300 mg PO TID 07/13/22 02/26/23 History rosuvastatin 10 mg tablet (Crestor) 10 mg PO HS 11/30/22 02/26/23 History calcitriol 0.25 mcg capsule 0.25 mcg PO MoWeFr@0900 #30 caps 12/12/22 02/26/23 Rx metoprolol succinate 50 mg 50 mg PO QAM #30 tabs 12/12/22 02/26/23 Rx tablet,extended release 24 hr zolpidem 5 mg tablet 5 mg PO HS PRN Sleep #30 tabs 01/16/23 02/26/23 Rx benzonatate 100 mg capsule 100 mg PO TID PRN Cough 01/29/23 02/26/23 History loperamide 2 mg tablet 2 mg PO QID PRN Diarrhea 01/29/23 02/26/23 History meloxicam 7.5 mg tablet 7.5 mg PO QAM Pain 01/29/23 02/26/23 History trazodone 150 mg tablet 150 mg PO HS 01/29/23 02/26/23 History apixaban 5 mg tablet (Eliquis) 5 mg PO AMHS 02/26/23 02/26/23 History ondansetron 4 mg disintegrating 4 mg PO Q6 PRN Nausea 02/26/23 02/26/23 History tablet Patient History Medical History Atrial fibrillation with rapid ventricular response (11/2022) History of rheumatic fever CAD (coronary artery disease) Hypophosphatemia Hypomagnesemia Acute on chronic diastolic CHF (congestive heart failure) Sepsis due to pneumonia Fall New onset a-fib Moderate mitral regurgitation Mild aortic stenosis Transient ischemic attack (TIA) ~2012>REASON FOR PLAVIX Osteoarthritis Chronic back pain Dyslipidemia History of blood transfusion 2012 2/2 GASTRIC ULCER History of gastric ulcer 2012 Depression Acid reflux OCCASIONAL Spinal stenosis Arthritis Hypothyroidism Chronic kidney disease stage 3 Hypertension Surgical History 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 History of cardiac cath NO STENTS History of coronary artery bypass graft 1998 (1 VESSEL) S/P epidural steroid injection History of esophagogastroduodenoscopy (EGD) S/p reverse total shoulder arthroplasty RT/LEFT History of abdominoplasty PANNICULECTOMY History of colonoscopy History of arthroplasty of right hip History of arthroplasty of left hip History of hysterectomy with oophorectomy History of arthroplasty of left shoulder History of tonsillectomy and adenoidectomy H/O bilateral salpingo-oophorectomy with hyter Family History Father , age 74 Allergic reaction Mother , 80s CHF (congestive heart failure) Other No family history of adverse response to anesthesia Social History Smoking Status: Never smoker Second Hand Exposure: No; Do You Dip or Chew Tobacco: No; Tobacco Cessation Education Requested by Patient: No Hx Alcohol Use: No Hx Substance Use: No Preferred Language: Wolof Communication Ability: Effective Visual Impairment: No Limitations Key Holder Required: No Beliefs That Will Affect Care: None marital status: Single Current Living Situation: Alone Current Living Situation Comment: [facility] How many Children do You have: 0 Other Information That Helps Us Care for You: No Feels Safe at Home: Yes Safety Concerns: Feels Safe At This Time Assistive Devices: Glasses Physical Exam Physical Exam: Elderly white female who appears anxious but in no distress. Moderately hypertensive. Pulse 76 bpm and regular. Respirations 18 and unlabored. Skin: No ecchymoses or generalized lesions. HEENT: Unremarkable Neck: Venous pulse at the clavicle at 90 degrees, carotids with bilateral transmitted murmur. Lungs: Mildly decreased breath sounds but clear bilaterally. Cardiac: Regular rhythm normal S1 and moderately diminished A2. 2/6 systolic ejection murmur right upper sternal border rating to the carotids, sternal border, axilla. No diastolic murmur or distinct gallop. Abdomen: Soft, nontender with normal bowel sounds. Extremities: No edema. Neurologic: Anxious affect, nonfocal. Results & Data Vital Signs (Past 12 Hours) Vital Signs Temp Pulse Pulse Resp BP Pulse Ox O2 Del Method 02/27/23 11:44 98.2 F 76 18 161/94 H 96 Room Air 02/27/23 08:35 77 20 112/61 95 Room Air 02/27/23 08:30 65 02/27/23 08:20 74 19 115/69 95 Room Air 02/27/23 07:34 98.6 F 71 17 145/71 H 94 Room Air 02/27/23 02:18 98.1 F 75 16 116/51 L 95 Room Air Laboratory Results Troponins as noted in HPI. Normal electrolytes, BUN 22, creatinine 1.15. Hemoglobin 11.5. Diagnostic Findings ECG on admission showed sinus rhythm at 74 bpm with first-degree AV block, otherwise unremarkable. Two subsequent ECGs taken during chest/arm pain also showed sinus rhythm in the 70-80 bpm range with isoelectric ST segments. Chest x-rays yesterday and today were unremarkable. PG Care Time/CCT Total # of Minutes Spent Total Time Spent with Patient: Total time spent is greater than 50% in coordination of care (as documented) at patient's floor/unit and/or counseling patient: Coding Level of Care Code 62273 INT INP/OBS CARE 2/55MIN Diagnoses Chest pain R07.9 Chest pain type: unspecified Coronary artery disease involving [place] coronary artery of [place] heart without angina pectoris I25.10 Coronary Disease-Associated Artery/Lesion type: [place] artery [place] vs. transplanted heart: [place] heart Associated angina: without angina S/P CABG x 1 Z95.1 Paroxysmal A-fib I48.0 (1) Chest pain Chest pain type: unspecified Qualified Code(s): R07.9 - Chest pain, unspecified (2) CAD (coronary artery disease) Coronary Disease-Associated Artery/Lesion type: [place] artery [place] vs. transplanted heart: [place] heart Associated angina: without angina Qualified Code(s): I25.10 - Atherosclerotic heart disease of [place] coronary artery without angina pectoris
[2023-02-27] MEDS: hydrOXYzine HCl 10 MG TAB PO PRN (13:41)
[2023-02-27] MEDS: PANTOprazole 40 MG TAB PO SCH (20:34)
[2023-02-27] MEDS: ROSUVASTATIN CALCIUM 10 MG TAB PO SCH (20:36)
[2023-02-27] MEDS: ZOLPIDEM TARTRATE 5 MG TAB PO PRN (22:38)
[2023-02-28] MEDS: LEVOTHYROXINE SODIUM 100 MCG TABLET PO SCH (05:51)
[2023-02-28 06:46] LABS: BUN Creatinine Ratio 19.7 (10-20); Calcium 9.7 mg/dl (8.6-10.3); Est GFR (African American) 46.5 ml/min; Est GFR (Non-African American) 40.1 ml/min; Magnesium 1.9 mg/dl (1.7-2.4)
[2023-02-28 07:01] LABS: Thyroid Stimulating Hormone 0.675 uIu/ml (0.300-4.500)
[2023-02-28] MEDS: PANTOprazole 40 MG TAB PO SCH (07:43)
[2023-02-28] MEDS: MELOXICAM 7.5 MG TAB PO SCH (07:43)
[2023-02-28] MEDS: METOPROLOL SUCC 50MG EXT REL TAB PO SCH (07:43)
[2023-02-28] MEDS: busPIRone 5 MG TAB PO SCH (07:43)
[2023-02-28] MEDS: GABAPENTIN 300 MG CAP PO SCH ×2 (07:43→13:29)
[2023-02-28] MEDS: APIXABAN 5 MG TABLET PO SCH (07:44)
[2023-02-28] MEDS ORDERED: LOSARTAN POTASSIUM 25 MG TAB PO SCH (09:00)
--- NOTE | 2023-02-28 09:54 | Cardiology Progress Note ---
Date of Service February 28, 2023 Assessment & Plan (1) Chest pain: (2) CAD (coronary artery disease): (3) S/P CABG x 1: (4) Paroxysmal A-fib: Plan Chest pain seems to be musculoskeletal, good response to nonsteroidal. Since she is remaining in sinus rhythm and did so during the current and most recent hospitalizations, would be reasonable to hold off on restarting apixaban for 1 to 2 weeks. During this time, she could continue the meloxicam for the next 4-5 days to reduce risk of recurrent inflammatory process which appears to have caused her chest discomfort. She could then discontinue meloxicam and a couple days later restart apixaban for long-term thromboembolic prophylaxis in the context of potentially recurrent paroxysmal atrial fibrillation. Okay for discharge from my standpoint, she already has a follow-up appointment with the next week. Admission and Anticipated Discharge Date Admission Date: February 26, 2023 Subjective Remarkably better this morning, chest discomfort resolved completely after initiation of meloxicam yesterday. Currently, she denies any chest pain, dyspnea, or palpitations. She slept well. Telemetry showed sinus rhythm with first-degree AV block with rate 70 bpm, occasional PVC. Physical Exam 2 Physical Exam: No distress. Mildly hypertensive. Pulse 82 bpm and regular. Respirations 17 and unlabored. Skin: No ecchymoses or generalized lesions. HEENT: Unremarkable Neck: Venous pulse at the clavicle at 90 degrees, carotids with bilateral transmitted murmur. Lungs: Mildly decreased breath sounds but clear bilaterally. Cardiac: Regular rhythm normal S1 and moderately diminished A2. 2/6 systolic ejection murmur right upper sternal border rating to the carotids, sternal border, axilla. No diastolic murmur or distinct gallop. Abdomen: Soft, nontender with normal bowel sounds. Extremities: No edema. Neurologic: Anxious affect, nonfocal. Results & Data Vital Signs (Past 12 Hours) Vital Signs Temp Pulse Pulse Resp BP Pulse Ox O2 Del Method 02/28/23 07:37 98.1 F 82 17 159/89 H 93 Room Air 02/28/23 06:56 67 02/28/23 02:25 97.9 F 71 16 133/76 96 Room Air 02/27/23 22:40 98.2 F 73 16 135/73 96 Room Air 02/27/23 21:55 74 Laboratory Results Normal electrolytes, BUN 24, creatinine 1.22. PG Care Time/CCT Total # of Minutes Spent Total Time Spent with Patient: Total time spent is greater than 50% in coordination of care (as documented) at patient's floor/unit and/or counseling patient: Coding Level of Care Code 37718 SUB INP/OBS CARE 2/35MIN Diagnoses Chest pain R07.9 Chest pain type: unspecified Coronary artery disease involving [place] coronary artery of [place] heart without angina pectoris I25.10 Coronary Disease-Associated Artery/Lesion type: [place] artery [place] vs. transplanted heart: [place] heart Associated angina: without angina S/P CABG x 1 Z95.1 Paroxysmal A-fib I48.0 (1) Chest pain Chest pain type: unspecified Qualified Code(s): R07.9 - Chest pain, unspecified (2) CAD (coronary artery disease) Coronary Disease-Associated Artery/Lesion type: [place] artery [place] vs. transplanted heart: [place] heart Associated angina: without angina Qualified Code(s): I25.10 - Atherosclerotic heart disease of [place] coronary artery without angina pectoris
--- NOTE | 2023-02-28 13:39 | Hospitalist Progress Note ---
Date of Service February 28, 2023 Assessment & Plan (1) Atrial fibrillation with rapid ventricular response: (2) SOB (shortness of breath): (3) History of rheumatic fever: (4) Acute on chronic heart failure with preserved ejection fraction (HFpEF): (5) Anxiety: (6) Depression: Plan Ms. Howard is a 84 year old female that presented to the ED today with shortness of breath that has started over the past 2 days. She was recently admitted on January 30 for sepsis pneumonia and was discharged to her home. She reports that she has not taken her medications in 4 days. Patient reports that she does live alone at home and does her ADLs independently. CXR with c ardiomegaly without acute cardiopulmonary process. No leukocytosis, otherwise labs unremarkable to this time. Magnesium and Phos pending. Initial troponin negative. Do not suspect ACS or other ischemic demand in nature. PMH includes: Atrial Fibrillation (On Eliquis),HFpEF, history of TIA, CAD, CKD stage III, hypothyroidism, depression, and GERD. Pt reports that she has a cardiac murmur since she was 3 years old after having rheumatic fever. She has never had cardiac intervention for this. Most recent ECHO 11/2022 EF 55-59%, LV wall motion normal, Mild aortic stenosis, trace pulmonic valve regurgitation, mild MR/TR, mild concentric LVH Atypical chest pain Hypertensive urgency on presentation Chest pain likely related to hypertension Admits to missing her home medications for 2 days No A-fib RVR--artifact on telemetry as per cardiology Anxiety, medication noncompliance and HTN likely contributing to chest discomfort --CXR: Cardiomegaly with no active disease in the chest. --EKG showed no signs of acute ischemia Troponin negative x 2 Normal procalcitonin, TSH BioFire negative Explained importance of medication compliance Continue metoprolol, Crestor And losartan 25 mg daily for better blood pressure control Appreciate cardiology input Plan to discharge home today HFpEF: Chronic No signs of acute exacerbation Continue home medications H/O P.Afib Continue metoprolol On Eliquis for anticoagulation H/O Rheumatic Fever: Chronic HLD: Chronic stable Continue rosuvastatin Hypothyroidism: Continue levothyroxine Depression Anxiety disorder Continue BuSpar Vistaril as needed Advised to follow-up with PCP/psychiatry in the outpatient DVT Px: Eliquis Code Status Full Code Disposition: Home with home health Admission and Anticipated Discharge Date Admission Date: February 26, 2023 Subjective Patient is seen and examined at bedside No recurrence of chest pain Reports some minimal dyspnea on exertion No other complaints Denies any cough, dyspnea, nausea, vomiting, abdominal pain Plan to be discharged home today Review of Systems Review of Systems: All systems reviewed & are unremarkable except as noted in Subjective Physical Exam Physical Exam: Physical Exam: Vitals signs as noted above General Appearance:Moderately built and nourished, no apparent distress, Elderly Head: normocephalic, Atraumatic Eyes: normal inspection, EOMI Neck: supple, Trachea midline Respiratory/Chest: Decreased breath sounds, scattered crackles, No accessory muscle use Cardiovascular: S1, S2, + murmur Abdomen/GI:Soft, Non tender, Bowel sounds present Extremities/Musculoskeletal:normal inspection, no edema Neurologic/Psych:AAOX3, grossly no focal neurological deficits Skin: normal color, warm Results & Data Results & Data Vital Signs (Past 12 Hours) Vital Signs Temp Pulse Pulse Resp BP Pulse Ox O2 Del Method 02/28/23 11:17 36.7 C 88 18 149/86 H 99 Room Air 02/28/23 07:37 36.7 C 82 17 159/89 H 93 Room Air 02/28/23 06:56 67 02/28/23 02:25 36.6 C 71 16 133/76 96 Room Air Laboratory Results [facility] 02/28/23 05:36 Sodium 142 Potassium 4.0 Chloride 111 H Carbon Dioxide 26 BUN 24 H Creatinine 1.22 H Glucose 91 Calcium 9.7 (6) Depression Depression Type: unspecified Qualified Code(s): F32.9 - Major depressive di sorder, single episode, unspecified
--- NOTE | 2023-02-28 13:45 | Discharge Summary ---
Date of Service February 28, 2023 Admission HPI Per Admitting Provider Ms. Howard is a 84 year old female that presented to the ED today with shortness of breath that has started over the past 2 days. She was recently admitted on January 30 for sepsis pneumonia and was discharged to her home. She reports that she has not taken her medications in 4 days. Patient reports that she does live alone at home and does her ADLs independently. CXR with cardiomegaly without acute cardiopulmonary process. No leukocytosis, otherwise labs unremarkable to this time. Magnesium and Phos pending. Initial troponin negative. Do not suspect ACS or other ischemic demand in nature. PMH includes: Atrial Fibrillation (On Eliquis),HFpEF, history of TIA, CAD, CKD stage III, hypothyroidism, depression, and GERD. Pt reports that she has a cardiac murmur since she was 3 years old after having rheumatic fever. She has never had cardiac intervention for this. Most recent ECHO 11/2022 EF 55-59%, LV wall motion normal, Mild aortic stenosis, trace pulmonic valve regurgitation, mild MR/TR. Most recent echocardiogram 01/30/2023 EF 60 to 65%, mild MR, moderate to severe TR and mild concentric LVH. Pt denies COLBERT, dizziness, SOB, chest pain, abdominal pain or tenderness, visual or auditory changes, recent falls or trauma. On examination, patient was returning to her bed from the bathroom and was visibly shortness of breath and was tachycardic up to the 130s and was hypertensive SBP > 200. We did obtain an ECG which is unchanged from her initial ECG on arrival to the ER. Since she has not taken her medications this morning we did proceed with labetalol 5 mg one-time dose and will resume a.m. dose of metoprolol as her systolic remained greater than 180. Suspect patient needs to be optimized with home medications. Will trend troponin and re-involve cardiology, along with ruling out infective properties; including blood and urine cultures. Will hold on IV antibiotics at this point since no leukocytosis and no overt sign of infection. Patient will be admitted for further evaluation and management. Please see A/P for further evaluation and management. Admission Exam Per Admitting Provider Neuro AAOx4, PERRLA, no aphagia, memory changes, CNII-XII grossly intact HEENT: head normocephalic, moist mucus membranes CV: Irregularly Irregular, (-) M/G/R, (-) edema, cap refill < 3 seconds Resp: Lungs CTA in all velasquez. On RA GI: Abdomen S/NT/ND, Ax4 bowel sounds, (-) CVA tenderness Musculoskeletal: 5/5 B/L UE strength, 5/5 B/L LE strength. No gait disturbance Skin: (-) rashes , (-) erythema. Psych: euthymic mood Principal Diagnosis Atypical chest pain Hypertensive urgency Anxiety Discharge Data Allergies Allergy/AdvReac Type Severity Reaction Status Date / Time nitroglycerin AdvReac Severe "PROJECTILE Verified 01/29/23 15:15 VOMITTING" ergotamine AdvReac Intermediate vomiting Verified 01/29/23 15:15 Consultations 02/26/23 17:02 ED Decision to Admit Stat 02/26/23 18:07 Consult Cardiology Routine Procedures Performed Laboratory Results WBC 6.09 K/ul (4.8-10.8) 02/27/23 06:08 RBC 3.93 M/uL (4.20-5.40) L 02/27/23 06:08 Hgb 11.5 g/dl (12.0-16.0) L 02/27/23 06:08 Hct 36.3 % (37.0-47.0) L 02/27/23 06:08 MCV 92.4 fL (80.0-100.0) D 02/27/23 06:08 MCH 29.3 pg (25.0-34.0) 02/27/23 06:08 MCHC 31.7 g/dL (32.0-36.0) L 02/27/23 06:08 RDW Std Deviation 52.7 fL (36.4-46.3) H 02/27/23 06:08 RDW Coeff of Howie 15.5 % (11.5-14.5) H 02/27/23 06:08 Plt Count 203 K/uL (130-400) 02/27/23 06:08 MPV 10.3 fL (9.4-12.4) 02/27/23 06:08 Immature Gran % (Auto) 0.3 % 02/26/23 16:06 Neut % (Auto) 51.6 % 02/26/23 16:06 Lymph % (Auto) 32.9 % 02/26/23 16:06 [place] % (Auto) 12.8 % 02/26/23 16:06 Eos % (Auto) 1.5 % 02/26/23 16:06 Baso % (Auto) 0.9 % 02/26/23 16:06 Neut # (Auto) 3.38 K/uL (1.40-6.50) 02/26/23 16:06 Lymph # (Auto) 2.16 K/uL (1.20-3.40) 02/26/23 16:06 [place] # (Auto) 0.84 K/uL (0.11-0.59) H 02/26/23 16:06 Eos # (Auto) 0.10 K/uL (0.00-0.50) 02/26/23 16:06 Baso # (Auto) 0.06 K/uL (0.00-0.20) 02/26/23 16:06 Immature Gran # (Auto) 0.02 K/uL (0.01-0.20) 02/26/23 16:06 Sodium 142 mmol/L (136-145) 02/28/23 05:36 Potassium 4.0 mmol/L (3.5-5.1) 02/28/23 05:36 Chloride 111 mmol/L (98-107) H 02/28/23 05:36 Carbon Dioxide 26 mmol/L (21-32) 02/28/23 05:36 Anion Gap 5 (3-11) 02/28/23 05:36 BUN 24 mg/dl (6-23) H 02/28/23 05:36 Creatinine 1.22 mg/dl (0.6-1.2) H 02/28/23 05:36 Est Cr Clr Drug Dosing 31.0 ml/min 02/28/23 05:36 Est GFR ( Amer) 46.5 ml/min 02/28/23 05:36 Est GFR (Non-Af Amer) 40.1 ml/min 02/28/23 05:36 BUN/Creatinine Ratio 19.7 (10-20) 02/28/23 05:36 Glucose 91 mg/dl (70-99(Fasting)) 02/28/23 05:36 Calcium 9.7 mg/dl (8.6-10.3) 02/28/23 05:36 Phosphorus 2.8 mg/dl (2.5-4.9) 02/26/23 19:38 Magnesium 1.9 mg/dl (1.7-2.4) 02/28/23 05:36 Total Bilirubin 0.7 mg/dl (0.2-1.0) 02/27/23 06:08 AST 17 U/L (13-39) 02/27/23 06:08 ALT 11 U/L (7-52) 02/27/23 06:08 Alkaline Phosphatase 52 U/L (34-104) 02/27/23 06:08 Troponin I High Sens 10.6 pg/ml (0-14) 02/27/23 06:08 Total Protein 6.7 gm/dl (6.0-8.3) 02/27/23 06:08 Albumin 3.7 gm/dl (3.4-5.0) 02/27/23 06:08 Globulin 3.0 gm/dl (2.5-4.0) 02/27/23 06:08 Albumin/Globulin Ratio 1.2 (0.9-2) 02/27/23 06:08 Lipase 32 U/L (11-82) 02/26/23 16:06 Procalcitonin < 0.05 ng/ml (0-0.5) 02/27/23 06:08 TSH 0.675 uIu/ml (0.300-4.500) 02/28/23 05:36 Urine Color Yellow 02/26/23 17:25 Urine Appearance Clear (Clear) 02/26/23 17:25 Urine pH 8.5 (4.5-7.5) H 02/26/23 17:25 Ur Specific [place] 1.011 (1.000-1.030) 02/26/23 17:25 Urine Protein Negative (Negative) 02/26/23 17:25 Urine Glucose (UA) Negative (Negative) 02/26/23 17:25 Urine Ketones Negative (Negative) 02/26/23 17:25 Urine Blood Negative (Negative) 02/26/23 17:25 Urine Nitrite Negative (Negative) 02/26/23 17:25 Urine Bilirubin Negative (Negative) 02/26/23 17:25 Urine Urobilinogen Negative (Negative) 02/26/23 17:25 Ur Leukocyte Esterase Negative (Negative) 02/26/23 17:25 Impressions Chest X-Ray 02/27/23 08:50 SINGLE VIEW CHEST CLINICAL HISTORY: Atypical chest pain. FINDINGS: An AP, portable, upright chest radiograph is compared to study dated 02/26/2023. Correlation is made with chest CT dated 12/01/2021. The examination is degraded by portable technique and patient rotation. A hiatal hernia is noted. The patient is status post midline sternotomy. The heart is enlarged noting atherosclerotic calcification of the thoracic aorta. The pulmonary vasculature is noncongested. Chronic interstitial thickening is similar to previous. There is mild bibasilar scarring/atelectasis. The lungs and pleural spaces are otherwise clear. No pneumothorax is seen. The skeletal structures are osteopenic. The bony thorax is grossly intact. Bilateral shoulder arthroplasties are in place. Degenerative change and scoliosis is noted in the spine. IMPRESSION: Cardiomegaly with no acute cardiopulmonary abnormality. No significant change from yesterday. ACT 112: Negative or not required by law. Electronically signed by: Avel Calero M.D. 02/27/2023 9:24 AM Hospital Course (1) Atrial fibrillation with rapid ventricular response: (2) SOB (shortness of breath): (3) History of rheumatic fever: (4) Acute on chronic heart failure with preserved ejection fraction (HFpEF): (5) Anxiety: (6) Depression: Plan Ms. Howard is a 84 year old female that presented to the ED today with shortness of breath that has started over the past 2 days. She was recently admitted on January 30 for sepsis pneumonia and was discharged to her home. She reports that she has not taken her medications in 4 days. Patient reports that she does live alone at home and does her ADLs independently. CXR with cardiomegaly without acute cardiopulmonary process. No leukocytosis, otherwise labs unremarkable to this time. Magnesium and Phos pending. Initial troponin negative. Do not suspect ACS or other ischemic demand in nature. PMH includes: Atrial Fibrillation (On Eliquis),HFpEF, history of TIA, CAD, CKD stage III, hypothyroidism, depression, and GERD. Pt reports that she has a cardiac murmur since she was 3 years old after having rheumatic fever. She has never had cardiac intervention for this. Most recent ECHO 11/2022 EF 55-59%, LV wall motion normal, Mild aortic stenosis, trace pulmonic valve regurgitation, mild MR/TR, mild concentric LVH Atypical chest pain Hypertensive urgency on presentation Chest pain likely related to hypertension Admits to missing her home medications for 2 days No A-fib RVR--artifact on telemetry as per cardiology Anxiety, medication noncompliance and HTN likely contributing to chest discomfort --CXR: Cardiomegaly with no active disease in the chest. --EKG showed no signs of acute ischemia Troponin negative x 2 Normal procalcitonin, TSH BioFire negative Explained importance of medication compliance Continue metoprolol, Crestor And losartan 25 mg daily for better blood pressure control Appreciate cardiology input Plan to discharge home today HFpEF: Chronic No signs of acute exacerbation Continue home medications H/O P.Afib Continue metoprolol On Eliquis for anticoagulation H/O Rheumatic Fever: Chronic HLD: Chronic stable Continue rosuvastatin Hypothyroidism: Continue levothyroxine Depression Anxiety disorder Continue BuSpar Vistaril as needed Advised to follow-up with PCP/psychiatry in the outpatient DVT Px: Eliquis Code Status Full Code Disposition: Home with home health Total Time Total Time Spent Total Time Spent (In Minutes): 55 minutes Discharge Plan Discharge Items Patient Disposition: Home - Home Health Services Reason For Visit: SOB Discharge Diagnosis: Atypical chest pain Hypertensive urgency Anxiety Activity: Per Instructions section Exercise/Sports: Gradually increase as tolerated Non-emergency contact: Primary Care Provider Call non-emergency contact if: you have any medication questions, your symptoms worsen, your pain is concerning for you and you have a fever Follow-up/Referrals: Con Coughlin MD [Primary Care Provider] - (Date & Time 03/08/2023 10:40 AM Provider Dionne Flores PA-C Department Family Medicine [facility] ) Diet: Heart Healthy Diet Texture: Easy to Chew Addtl Attending Provider Instructions: Follow-up with your primary care physician on 03/08/2023 10:40 AM Follow-up with your collar tailor Dr. Adams as needed -- Monitor your blood pressure regularly at home. Discuss with your physician for further adjustment of medications as needed. --Also discussed with your primary care physician regarding managing your anxiety issues. --Avoid using NSAIDs like meloxicam while on blood thinner like apixaban. Combination can increase your risk for bleeding. Seek immediate medical attention if your symptoms reoccur or worsen Please take all medications as instructed on discharge list below. Please call if you have any questions or problems. You can reach a [facility] hospitalist on duty at [facility] 24 hours a day by calling [phone] Pending Studies at Discharge: No Stand-Alone Forms: My [facility], Smoking Cessation Medications and DC Order Prescriptions: New losartan 25 mg Tablet 25 mg PO QAM Qty: 30 1RF hydroxyzine HCl 10 mg Tablet 10 mg PO DAILY PRN (Reason: anxiety) Qty: 10 0RF Continued zolpidem 5 mg tablet 5 mg PO HS PRN (Reason: Sleep) Qty: 30 5RF rosuvastatin [Crestor] 10 mg tablet 10 mg PO HS buspirone 10 mg tablet 10 mg PO BID Qty: 60 5RF levothyroxine [Levoxyl] 100 mcg Tablet 100 mcg PO DAILYBB pantoprazole [Protonix] 40 mg Tablet,Delayed Release (Dr/Ec) 40 mg PO [facility] metoprolol succinate 50 mg Tablet Extended Release 24 Hr 50 mg PO QAM Qty: 30 0RF calcitriol 0.25 mcg Capsule 0.25 mcg PO MoWeFr@0900 Qty: 30 0RF ondansetron 4 mg tablet,disintegrating 4 mg PO Q6 PRN (Reason: Nausea) Eliquis 5 mg tablet 5 mg PO [facility] gabapentin 300 mg capsule 300 mg PO TID loperamide 2 mg Tablet 2 mg PO QID PRN (Reason: Diarrhea) benzonatate 100 mg capsule 100 mg PO TID PRN (Reason: Cough) trazodone 150 mg tablet 150 mg PO HS Discontinued meloxicam 7.5 mg tablet 7.5 mg PO QAM Discharge Orders: Discharge Order (Routine); Ordered 02/28/23 Ordered By: Lalo Conte Admission Data Admit Date/Time: 02/26/23 17:33 Attending Provider: Lalo Conte Admit Provider: Ann Marie Ba Primary Care Provider: Con Coughlin Other Providers: Ann Marie Ba; Noah Adams
[2023-02-28] MEDS: hydrOXYzine HCl 10 MG TAB PO PRN (15:16)
== END 2023-02-28 15:55 | disposition home health service (06) | DRG 305 ==
LOC: ED 16:02 → INTOOBSV 17:33 → 4W 17:33 → SUATTDRO 17:33 → 4W 18:14 → 2E 21:23

== ENCOUNTER 2023-03-11 17:34 | Observation (INO) ==
[2023-03-11 18:28] LABS: Hemoglobin 11.3 g/dl (12.0-16.0); Mean Corpuscular Hgb Conc 32.3 g/dL (32.0-36.0); Mean Platelet Volume 9.6 fL (9.4-12.4); Platelet Count 230 K/uL (130-400); RDW Coefficient of Variation 14.6 % (11.5-14.5); RDW Standard Deviation 48.1 fL (36.4-46.3); Red Blood Count 3.89 M/uL (4.20-5.40); White Blood Count 5.63 K/ul (4.8-10.8)
[2023-03-11] MEDS: MoRPHine SULFATE 2 MG/ML CARP IV STA (18:32)
--- NOTE | 2023-03-11 18:32 | Emergency Department Note ---
Impression & Plan Precordial chest pain, History of coronary artery disease ED Provider Note NAME: Marquez LEACH AGE: 84 SEX: F : 11/14/1938 ARRIVES VIA: Wheelchair INFORMANT: [Patient][ems] ED PROVIDER(S): [Avel Santiago MD] CHIEF COMPLAINT: Chest pain HISTORY OF PRESENT ILLNESS: The patient is an 84-year-old female who was here earlier today for chest pain. Cardiac workup was unrevealing. On the way home, she began having worsening chest discomfort and was brought back to the ED. She complained of some shortness of breath and some palpitations as well. Patient has not been coughing. There has been no fever. She was not sweating with this discomfort. Her pain was somewhat relieved today with the first visit with some interventions here in the ER. She states that she was never completely pain-free in the ER at the first visit but things then worsened on the way home. PMHx/PSHx/Social Hx: See Below PHYSICAL EXAM: GENERAL: Patient is in no acute distress. HEENT: No acute trauma, normocephalic atraumatic, mucous membranes moist, no nasal congestion. NECK: No stridor, no adenopathy, no meningismus, trachea is midline. LUNGS: Clear to auscultation bilaterally, no wheeze, no rhonchi, breath sounds equal. HEART: Irregular rhythm, 2/6 to 3/6 systolic murmur, normal rate. Chest: Tender to the left anterior superior chest wall next to the sternum. ABDOMEN: Soft, nontender, no peritonitis. EXTREMITIES: No cyanosis, full range of motion of all the joints without pain or difficulty. NEUROLOGIC: Oriented x 3, no acute motor or sensory deficits, no focal weakness. SKIN: No jaundice, no diaphoresis. DIFFERENTIAL DIAGNOSIS: Musculoskeletal pain, aortic dissection, PE, pneumonia, pneumothorax, IL, among others. EMERGENCY DEPARTMENT PROCEDURES: MEDICAL DECISION MAKING: There is no leukocytosis. The patient does have a mild anemia with a hemoglobin of 11.3. There was a normal platelet count. No concerning coagulopathy. Creatinine was mildly elevated at 1.27, no electrolyte abnormality in need of emergent correction. ECG showed a sinus rhythm with some sinus arrhythmia. There was a first-degree AV block, no acute ischemic change. Cardiac enzyme testing x 1 was not consistent with acute cardiac injury. Chest CT angio did not show any evidence for aortic dissection or acute lung pathology. The patient presents with ongoing chest pain today. She had been seen earlier and then discharged and then returned with persistent, more severe pain. On exam, the pain did seem somewhat reproducible by palpation. Given the patient's history of coronary disease, given her persistent chest discomfort, given the 2 visits today for the same complaint, I do think a hospital stay with cardiac monitoring would be warranted. I spoke with the patient and case management, the on-call hospitalist was consulted. Prior/Outside records/notes reviewed: Discharge summary from 02/28/2023 discussing her presentation for chest pain and hypertension. ECG per my interpretation: Indication was chest pain. The ECG shows a sinus rhythm with some sinus arrhythmia. There is a first-degree AV block. There is no ST elevation, no PVCs. QTc is 425. Continuous Cardiac Monitoring per my interpretation: An order was placed for continuous cardiac monitoring. The monitor shows a rate of 90 with sinus rhythm with a first-degree block. Imaging/x-ray results per my interpretation: Chest x-ray does not show mediastinal widening, pneumonia or pneumothorax. Chronic Medical/Social conditions affecting care: Advanced age. Chronic anticoagulation Care/Management discussed with: Case management, the on-call hospitalist. Level of care consideration(s): After review of the information above and other included data: --I believe the patient requires escalation of care to admission DISPOSITION: Admission Past Med/Surg History Medical History Atrial fibrillation with rapid ventricular response (11/2022) History of rheumatic fever CAD (coronary artery disease) Hypophosphatemia Hypomagnesemia Acute on chronic diastolic CHF (congestive heart failure) Sepsis due to pneumonia Fall New onset a-fib Moderate mitral regurgitation Mild aortic stenosis Transient ischemic attack (TIA) ~2012>REASON FOR [facility]VIX Osteoarthritis Chronic back pain Dyslipidemia History of blood transfusion 2012 2/2 GASTRIC ULCER History of gastric ulcer 2013 Depression Acid reflux OCCASIONAL Spinal stenosis Arthritis Hypothyroidism Chronic kidney disease stage 3 Hypertension Surgical History S/P CABG x 1 (1998) History of cardiac cath History of coronary artery bypass graft S/P epidural steroid injection History of esophagogastroduodenoscopy (EGD) S/p reverse total shoulder arthroplasty History of abdominoplasty History of colonoscopy History of arthroplasty of right hip History of arthroplasty of left hip History of hysterectomy with oophorectomy History of arthroplasty of left shoulder History of tonsillectomy and adenoidectomy H/O bilateral salpingo-oophorectomy Family History Father Allergic reaction Mother CHF (congestive heart failure) Other No family history of adverse response to anesthesia Social History Smoking Status: Never smoker Second Hand Exposure: No; Do You Dip or Chew Tobacco: No; Hx Alcohol Use: No Hx Substance Use: No Preferred Language: Norwegian Communication Ability: Effective Visual Impairment: No Limitations Radiology Physician Required: No Beliefs That Will Affect Care: None marital status: Single Current Living Situation: Alone Current Living Situation Comment: [facility] Living How many Children do You have: 0 Feels Safe at Home: Yes Assistive Devices: Walker Allergies Allergies Allergy/AdvReac Type Severity Reaction Status Date / Time nitroglycerin AdvReac Severe "PROJECTILE Verified 01/29/23 15:15 VOMITTING" ergotamine AdvReac Intermediate vomiting Verified 01/29/23 15:15 Home Meds Home Medications Medication Instructions Recorded Confirmed levothyroxine 100 mcg tablet 100 mcg PO DAILYBB 01/23/18 03/11/23 (Levoxyl) pantoprazole 40 mg tablet,delayed 40 mg PO AMHS 01/23/18 03/11/23 release (Protonix) gabapentin 300 mg capsule 300 mg PO TID 07/13/22 03/11/23 rosuvastatin 10 mg tablet (Crestor) 10 mg PO HS 11/30/22 03/11/23 benzonatate 100 mg capsule 100 mg PO TID PRN Cough 01/29/23 03/11/23 loperamide 2 mg tablet 2 mg PO QID PRN Diarrhea 01/29/23 03/11/23 trazodone 150 mg tablet 150 mg PO HS 01/29/23 03/11/23 apixaban 5 mg tablet (Eliquis) 5 mg PO AMHS 02/26/23 03/11/23 ondansetron 4 mg disintegrating 4 mg PO Q6 PRN Nausea 02/26/23 03/11/23 tablet Previous Rx's Medication Instructions Recorded buspirone 10 mg tablet 10 mg PO BID #60 tabs 03/22/21 calcitriol 0.25 mcg capsule 0.25 mcg PO MoWeFr@0900 #30 caps 12/12/22 metoprolol succinate 50 mg 50 mg PO QAM #30 tabs 12/12/22 tablet,extended release 24 hr zolpidem 5 mg tablet 5 mg PO HS PRN Sleep #30 tabs 01/16/23 hydroxyzine HCl 10 mg tablet 10 mg PO DAILY PRN anxiety #10 tabs 02/28/23 losartan 25 mg tablet 25 mg PO QAM #30 tabs 02/28/23 Results & Data (ED) Vital Signs Vital Signs - 24 hr 03/11/23 17:38 03/11/23 18:07 03/11/23 18:41 Temperature 37.0 C Temperature Source Oral Pulse Rate 79 90 Pulse Rate [Apical] 94 H Respiratory Rate 20 14 Respiratory Effort / Characteristics Non-Labored Spontaneous Respiratory Depth Normal Normal Respiratory Pattern Regular Blood Pressure 211/113 H Blood Pressure [Right Arm] 189/98 H Blood Pressure Mean 145 Blood Pressure Mean [Right Arm] 128 Blood Pressure Position Semi-fowlers Blood Pressure Position [Right Arm] Semi-fowlers Pulse Oximetry 99 99 Oxygen Delivery Method Room Air Room Air Sepsis Recent Fever Within 48 Hours No Sepsis New/Unexplained Change in Mental Status No Sepsis Action Taken by Nursing No Action Required 03/11/23 18:42 03/11/23 19:01 03/11/23 19:32 Temperature Temperature Source Pulse Rate 95 H Pulse Rate [Apical] 72 77 Respiratory Rate 18 Respiratory Effort / Characteristics Respiratory Depth Respiratory Pattern Blood Pressure 189/98 H Blood Pressure [Right Arm] 179/83 H 164/98 H Blood Pressure Mean Blood Pressure Mean [Right Arm] 115 120 Blood Pressure Position Blood Pressure Position [Right Arm] Pulse Oximetry 97 Oxygen Delivery Method Room Air Sepsis Recent Fever Within 48 Hours Sepsis New/Unexplained Change in Mental Status Sepsis Action Taken by [facility] Medications Current Medication List: was personally reviewed by me Laboratory Data Attestation: I reviewed the patient's lab results. 03/11/23 18:06 03/11/23 18:06 Lab Results 03/11/23 Range/Units 18:06 WBC 5.63 (4.8-10.8) K/ul RBC 3.89 L (4.20-5.40) M/uL Hgb 11.3 L (12.0-16.0) g/dl Hct 35.0 L (37.0-47.0) % MCV 90.0 (80.0-100.0) fL MCH 29.0 (25.0-34.0) pg MCHC 32.3 (32.0-36.0) g/dL RDW Std Deviation 48.1 H (36.4-46.3) fL RDW Coeff of Howie 14.6 H (11.5-14.5) % Plt Count 230 (130-400) K/uL MPV 9.6 (9.4-12.4) fL PT 12.1 H (9.0-12.0) Seconds INR 1.1 (0.9-1.1) APTT 25 (21-31) Seconds PTT Ratio 0.9 Sodium 139 (136-145) mmol/L Potassium 4.3 (3.5-5.1) mmol/L Chloride 107 (98-107) mmol/L Carbon Dioxide 24 (21-32) mmol/L Anion Gap 8 (3-11) BUN 20 (6-23) mg/dl Creatinine 1.27 H (0.6-1.2) mg/dl Est Cr Clr Drug Dosing 28.9 ml/min Est GFR ( Amer) 44.3 ml/min Est GFR (Non-Af Amer) 38.2 ml/min BUN/Creatinine Ratio 15.7 (10-20) Glucose 90 (70-99(Fasting)) mg/dl Calcium 10.6 H (8.6-10.3) mg/dl Magnesium 1.7 (1.7-2.4) mg/dl Troponin I High Sens 11.7 (0-14) pg/ml Administered Medications Acetaminophen (Acetaminophen 325 Mg Tab) 650 mg PO Q4H PRN PRN Reason: Pain or Fever Stop: 04/10/23 21:52 Last Admin: 03/12/23 00:11 Dose: 650 mg Documented By: NRB Apixaban (Apixaban 5 Mg Tablet) 5 mg PO AMHS YAN Stop: 04/10/23 21:52 Last Admin: 03/11/23 22:33 Dose: 5 mg Documented By: YUNIERD Buspirone HCl (Buspirone 5 Mg Tab) 10 mg PO BID YAN Stop: 04/10/23 21:52 Last Admin: 03/11/23 22:32 Dose: 10 mg Documented By: ALCON Gabapentin (Gabapentin 300 Mg Cap) 300 mg PO TID YAN Stop: 04/10/23 21:52 Last Admin: 03/11/23 22:32 Dose: 300 mg Documented By: ALCON Rosuvastatin Calcium (Rosuvastatin Calcium 10 Mg Tab) 10 mg PO HS YAN Stop: 04/10/23 21:52 Last Admin: 03/11/23 22:31 Dose: 10 mg Documented By: ALCON Zolpidem Tartrate (Zolpidem Tartrate 5 Mg Tab) 5 mg PO HS PRN PRN Reason: Sleep Stop: 04/10/23 21:52 Last Admin: 03/12/23 00:36 Dose: 5 mg Documented By: NRHyacitnh Discontinued Medications Acetaminophen (Ofirmev) 1,000 mg in 100 mls @ 400 mls/hr IV NOW STA Stop: 03/11/23 18:35 Last Infusion: 03/11/23 19:46 Dose: Infused Documented By: Admin: 03/11/23 19:21 Dose: 400 mls/hr Documented By: ALCON Ioversol (Optiray 320 125ml) 118 ml IV ONCE ONE Stop: 03/11/23 19:07 Last Admin: 03/11/23 19:08 Dose: 118 ml Documented By: DALE Labetalol HCl (Labetalol Hcl Iv 5 Mg/Ml 20ml) 10 mg IV NOW STA Stop: 03/11/23 18:34 Last Admin: 03/11/23 18:42 Dose: 10 mg Documented By: ALCON Co-signed By: ISA Morphine Sulfate (Morphine Sulfate 2 Mg/Ml Carp) 2 mg IV NOW STA Stop: 03/11/23 18:22 Last Admin: 03/11/23 18:32 Dose: 2 mg Documented By: ALCON Imaging Data Radiologist's Impression: Chest X-Ray 03/11/23 18:05 XR chest 1V portable CLINICAL HISTORY: cp TECHNIQUE: Single frontal radiograph of the chest was obtained. Comparison: Comparison is made to chest radiograph 03/11/2023 FINDINGS: Bilateral reverse shoulder arthroplasties are seen. Median sternotomy wires are seen. Calcified aortic knob is seen. The lungs are clear. No evidence of pleural effusion or pneumothorax. IMPRESSION: No acute chest disease. ACT 112: Negative or not required by law. Electronically signed by: Heath Rockwell M.D. 03/11/2023 6:33 PM Chest CTA 03/11/23 18:21 CT angio chest wo/w con CLINICAL HISTORY: murmur, pain TECHNIQUE: Multidetector row helical CT of the chest was performed with angiographic protocol. Coronal and sagittal reformations were obtained. Coronal and sagittal MIPS were obtained from the axial data set and were submitted for review. Automated dose lowering techniques and/or adjustment according to patient size were utilized for this exam. CT DOSE: 972.73 mGy.cm Comparison: Comparison is made to CT chest 12/01/2021 FINDINGS: Lungs and pleura: There is a trace left pleural effusion and bibasilar atelectasis. There is a 3 mm nodule right middle lobe (series 7 image 155). Previously noted peripheral right lower lobe density is unchanged. This likely represents scarring. Heart and pericardium: Cardiomegaly is seen with biatrial enlargement. Vessels: No evidence of pulmonary embolism or aortic dissection. The origin of the major vessels is unremarkable. Moderate atherosclerotic disease is seen in the coronary arteries. Mediastinum and caryn: Unremarkable. Chest wall and lower neck: Unremarkable. Abdomen: A moderate hiatal hernia is seen. Bones: Degenerative changes in the thoracic spine. Reversed bilateral shoulder arthroplasties are seen. Old rib fractures are seen on the right. IMPRESSION: 1. No acute abnormalities and in particular no evidence of aortic dissection or other acute abnormality. 2. Redemonstration of cardiomegaly. 3. Trace left pleural effusion, decreased from prior exam. ACT 112: Negative or not required by law. Electronically signed by: Heath Rockwell M.D. 03/11/2023 7:41 PM Discharge Plan Visit Data Chief Complaint: Chest Pain ED Provider: Avel Santiago Discharge Problem: Precordial chest pain, History of coronary artery disease Patient Disposition: Admitted As Inpatient Condition: Fair Discharge Instructions Interventions: ED Discharge Assessment Last Done: 03/11/23 21:54
[2023-03-11] MEDS: LABETALOL HCL IV 5 MG/ML 20ML IV STA (18:42)
[2023-03-11 18:46] LABS: BUN Creatinine Ratio 15.7 (10-20); Calcium 10.6 mg/dl (8.6-10.3); Creatinine Clr Calc Pharmacy 28.9 ml/min; Est GFR (African American) 44.3 ml/min; Est GFR (Non-African American) 38.2 ml/min; Magnesium 1.7 mg/dl (1.7-2.4); Potassium 4.3 mmol/L (3.5-5.1)
[2023-03-11 18:53] LABS: Troponin I High Sensitivity 11.7 pg/ml (0-14)
[2023-03-11 18:59] LABS: INR 1.1 (0.9-1.1); Partial Thromboplastin Ratio 0.9; Partial Thromboplastin Time 25 Seconds (21-31); Prothrombin Time 12.1 Seconds (9.0-12.0)
[2023-03-11] MEDS: OPTIRAY 320 125ml IV ONE (19:08)
[2023-03-11] MEDS: ACETAMINOPHEN 1,000 MG/100 ML VIAL IV STA (19:21)
--- NOTE | 2023-03-11 19:44 | CT Scan Report ---
CT angio chest wo/w con CLINICAL HISTORY: murmur, pain TECHNIQUE: Multidetector row helical CT of the chest was performed with angiographic protocol. Urbina l and sagittal reformations were obtained. Coronal and sagittal MIPS were obtained from the axial fatou a set and were submitted for review. Automated dose lowering techniques and/or adjustment according to patient size were utilized for this exam. CT DOSE: 972.73 mGy.cm Comparison: Comparison is made to CT chest 12/01/2021 FINDINGS: Lungs and pleura: There is a trace left pleural effusion and bibasilar atelectasis. There is a 3 mm n odule right middle lobe (series 7 image 155). Previously noted peripheral right lower lobe density is unchanged. This likely represents scarring. Heart and pericardium: Cardiomegaly is seen with biatrial enlargement. Vessels: No evidence of pulmonary embolism or aortic dissection. The origin of the major vessels is u nremarkable. Moderate atherosclerotic disease is seen in the coronary arteries. Mediastinum and caryn: Unremarkable. Chest wall and lower neck: Unremarkable. Abdomen: A moderate hiatal hernia is seen. Bones: Degenerative changes in the thoracic spine. Reversed bilateral shoulder arthroplasties are see n. Old rib fractures are seen on the right. IMPRESSION: 1. No acute abnormalities and in particular no evidence of aortic dissection or other acute abnormal ity. 2. Redemonstration of cardiomegaly. 3. Trace left pleural effusion, decreased from prior exam. ACT 112: Negative or not required by law. Electronically signed by: Heath Rockwell M.D. 03/11/2023 7:41 PM
--- NOTE | 2023-03-11 21:27 | History & Physical Report ---
Date of Service March 11, 2023 Assessment & Plan (1) Chest pain: Plan: 84-year-old female past med history significant for hypothyroidism, hyperlipidemia, hypercalcemia, hiatal hernia, chronic diastolic CHF, CKD stage III, CAD s/p CABG, hypertension, chronic atrial fibrillation, mild aortic stenosis, GERD, degenerative disc disease, anxiety, history of gastric ulcer, depression presents with chest pain. Patient was earlier in the ER with chest pain workup was okay and she felt going home and got discharged. After going home the chest pain came back with some shortness of breath palpitations and came back. Currently pain is on left side of chest dull aching. She ambulated to the bathroom okay in ER. Resting she has no shortness of breath. Denies any headache. No blurred visions. No runny nose or sore throat. No cough. Today she could not eat much. Decreased micturition today. Normal bowel movements. No abdominal pain. No nausea. No sweating. No dizziness. Currently resting comfortably and hemodynamically stable. Patient was in the hospital in January with sepsis from pneumonia and acute on chronic diastolic CHF. And also she was recently admitted on February 26 to for rapid A-fib and CHF. Chest pain Was in the ER earlier workup was negative and got discharged comes back again with recurrent chest pain So far 3 sets of troponin negative. EKG no acute findings CTA chest no acute findings Will observe in hospital Serial enzymes Consult cardiology in a.m. for further recommendations History of CAD s/p CABG On beta-brendan, statin and Eliquis History of atrial fibrillation On beta-brendan and Eliquis Hypertension On losartan, metoprolol succinate Blood pressure elevated IV labetalol as needed Will monitor Hypothyroidism On Synthyroid CKD stage III Creatinine 1.2 Will follow the labs GERD On Protonix Chronic diastolic CHF Will monitor for volume overload DVT prophylaxis On Eliquis Disposition Observe in med/tele Full code History of Present Illness Chief Complaint: Chest pain Primary Care Provider: NO PCP 84-year-old female past med history significant for hypothyroidism, hyperlipidemia, hypercalcemia, hiatal hernia, chronic diastolic CHF, CKD stage III, CAD s/p CABG, hypertension, chronic atrial fibrillation, mild aortic steno sis, GERD, degenerative disc disease, anxiety, history of gastric ulcer, depression presents with chest pain. Patient was earlier in the ER with chest pain workup was okay and she felt going home and got discharged from ER. After going home the chest pain came back with some shortness of breath and palpitations and came back to ER Currently pain is on left side of chest dull aching. She ambulated to the bathroom okay in ER. Resting she has no shortness of breath. Denies any headache. No blurred visions. No runny nose or sore throat. No cough. Today she could not eat much. Decreased micturition today. Normal bowel movements. No abdominal pain. No nausea. No sweating. No dizziness. Currently resting comfortably and hemodynamically stable. Patient was in the hospital in January with sepsis from pneumonia and acute on chronic diastolic CHF. And also she was recently admitted on February 26 to for rapid A-fib and CHF. Past medical history. As mentioned above Past surgical history. Abdominal surgery for liposuction. CABG. Colonoscopy. EGD. Repair of retinal tear. Bilateral lasering of cataract. Reconstruction of the left shoulder joint. Reconstruction of the right shoulder joint. Cataracts. Tonsillectomy and adenoidectomy. Total abdominal hysterectomy with removal of tubes. Left total hip replacement. Social history. . No smoking. Alcohol occasional. No drug use. Family history. Father had allergies. Brother had CAD, dementia. Mother had CHF. Sister had CAD. Allergies Allergy/AdvReac Type Severity Reaction Status Date / Time nitroglycerin AdvReac Severe "PROJECTILE Verified 01/29/23 15:15 VOMITTING" ergotamine AdvReac Intermediate vomiting Verified 01/29/23 15:15 Home Medications Medication Instructions Recorded Confirmed Type levothyroxine 100 mcg tablet 100 mcg PO DAILYBB 01/23/18 03/11/23 History (Levoxyl) pantoprazole 40 mg tablet,delayed 40 mg PO AMHS 01/23/18 03/11/23 History release (Protonix) buspirone 10 mg tablet 10 mg PO BID #60 tabs 03/22/21 03/11/23 Rx gabapentin 300 mg capsule 300 mg PO TID 07/13/22 03/11/23 History rosuvastatin 10 mg tablet (Crestor) 10 mg PO HS 11/30/22 03/11/23 History calcitriol 0.25 mcg capsule 0.25 mcg PO MoWeFr@0900 #30 caps 12/12/22 03/11/23 Rx metoprolol succinate 50 mg 50 mg PO QAM #30 tabs 12/12/22 03/11/23 Rx tablet,extended release 24 hr zolpidem 5 mg tablet 5 mg PO HS PRN Sleep #30 tabs 01/16/23 03/11/23 Rx benzonatate 100 mg capsule 100 mg PO TID PRN Cough 01/29/23 03/11/23 History loperamide 2 mg tablet 2 mg PO QID PRN Diarrhea 01/29/23 03/11/23 History trazodone 150 mg tablet 150 mg PO HS 01/29/23 03/11/23 History apixaban 5 mg tablet (Eliquis) 5 mg PO AMHS 02/26/23 03/11/23 History ondansetron 4 mg disintegrating 4 mg PO Q6 PRN Nausea 02/26/23 03/11/23 History tablet hydroxyzine HCl 10 mg tablet 10 mg PO DAILY PRN anxiety #10 tabs 02/28/23 03/11/23 Rx losartan 25 mg tablet 25 mg PO QAM #30 tabs 02/28/23 03/11/23 Rx Past Med/Surg History Medical History Atrial fibrillation with rapid ventricular response (11/2022) History of rheumatic fever CAD (coronary artery disease) Hypophosphatemia Hypomagnesemia Acute on chronic diastolic CHF (congestive heart failure) Sepsis due to pneumonia Fall New onset a-fib Moderate mitral regurgitation Mild aortic stenosis Transient ischemic attack (TIA) ~2012>REASON FOR PLAVIX Osteoarthritis Chronic back pain Dyslipidemia History of blood transfusion 2012 2/2 GASTRIC ULCER History of gastric ulcer 2012 Depression Acid reflux OCCASIONAL Spinal stenosis Arthritis Hypothyroidism Chronic kidney disease stage 3 Hypertension Surgical History S/P CABG x 1 (1998) History of cardiac cath History of coronary artery bypass graft S/P epidural steroid injection History of esophagogastroduodenoscopy (EGD) S/p reverse total shoulder arthroplasty History of abdominoplasty History of colonoscopy History of arthroplasty of right hip History of arthroplasty of left hip History of hysterectomy with oophorectomy History of arthroplasty of left shoulder History of tonsillectomy and adenoidectomy H/O bilateral salpingo-oophorectomy Family History Father Allergic reaction Mother CHF (congestive heart failure) Other No family history of adverse response to anesthesia Social History Smoking Status: Never smoker Second Hand Exposure: No; Do You Dip or Chew Tobacco: No; Hx Alcohol Use: No Hx Substance Use: No Preferred Language: Citizen Of [place] Communication Ability: Effective Visual Impairment: No Limitations Methods Engineer Required: No Beliefs That Will Affect Care: None marital status: Single Current Living Situation: Alone Current Living Situation Comment: [facility] How many Children do You have: 0 Feels Safe at Home: Yes Safety Concerns: Feels Safe At This Time Assistive Devices: Walker Review of Systems Review of Systems: All systems reviewed & are unremarkable except as noted in HPI & below Physical Exam Physical Exam: General- Not in distress Head- atraumatic Eyes- PERRL. ENT- oropharynx clear Neck- supple, no JVD. Lungs- clear to auscultation no wheezing or crackles Heart- regular rhythm; no murmur, no gallop. Abdomen- normal bowel sounds, soft, nontender, no distension. Extremities- no pretibial edema, no erythema seen Neuro- alert, oriented x 3; PERRL, no facial palsy; no dysarthria; moves extremities Skin- warm & dry Results & Data Results & Data Vital Signs (Past 12 Hours) Vital Signs Temp Pulse Pulse Resp BP BP Pulse Ox 03/11/23 19:32 77 164/98 H 03/11/23 19:01 72 18 179/83 H 97 03/11/23 18:42 95 H 189/98 H 03/11/23 18:41 94 H 14 189/98 H 99 03/11/23 18:07 90 03/11/23 17:38 37.0 C 79 20 211/113 H 99 O2 Del Method 03/11/23 19:32 03/11/23 19:01 Room Air 03/11/23 18:42 03/11/23 18:41 Room Air 03/11/23 18:07 03/11/23 17:38 Room Air Diagnostic Findings Laboratory Results WBC 5.63 K/ul (4.8-10.8) 03/11/23 18:06 RBC 3.89 M/uL (4.20-5.40) L 03/11/23 18:06 Hgb 11.3 g/dl (12.0-16.0) L 03/11/23 18:06 Hct 35.0 % (37.0-47.0) L 03/11/23 18:06 MCV 90.0 fL (80.0-100.0) 03/11/23 18:06 MCH 29.0 pg (25.0-34.0) 03/11/23 18:06 MCHC 32.3 g/dL (32.0-36.0) 03/11/23 18:06 RDW Std Deviation 48.1 fL (36.4-46.3) H 03/11/23 18:06 RDW Coeff of Howie 14.6 % (11.5-14.5) H 03/11/23 18:06 Plt Count 230 K/uL (130-400) 03/11/23 18:06 MPV 9.6 fL (9.4-12.4) 03/11/23 18:06 PT 12.1 Seconds (9.0-12.0) H 03/11/23 18:06 INR 1.1 (0.9-1.1) 03/11/23 18:06 APTT 25 Seconds (21-31) 03/11/23 18:06 PTT Ratio 0.9 03/11/23 18:06 Sodium 139 mmol/L (136-145) 03/11/23 18:06 Potassium 4.3 mmol/L (3.5-5.1) 03/11/23 18:06 Chloride 107 mmol/L (98-107) 03/11/23 18:06 Carbon Dioxide 24 mmol/L (21-32) 03/11/23 18:06 Anion Gap 8 (3-11) 03/11/23 18:06 BUN 20 mg/dl (6-23) 03/11/23 18:06 Creatinine 1.27 mg/dl (0.6-1.2) H 03/11/23 18:06 Est Cr Clr Drug Dosing 28.9 ml/min 03/11/23 18:06 Est GFR ( Amer) 44.3 ml/min 03/11/23 18:06 Est GFR (Non-Af Amer) 38.2 ml/min 03/11/23 18:06 BUN/Creatinine Ratio 15.7 (10-20) 03/11/23 18:06 Glucose 90 mg/dl (70-99(Fasting)) 03/11/23 18:06 Calcium 10.6 mg/dl (8.6-10.3) H 03/11/23 18:06 Magnesium 1.7 mg/dl (1.7-2.4) 03/11/23 18:06 Troponin I High Sens 11.7 pg/ml (0-14) 03/11/23 18:06 Impressions Chest X-Ray 03/11/23 18:05 XR chest 1V portable CLINICAL HISTORY: cp TECHNIQUE: Single frontal radiograph of the chest was obtained. Comparison: Comparison is made to chest radiograph 03/11/2023 FINDINGS: Bilateral reverse shoulder arthroplasties are seen. Median sternotomy wires are seen. Calcified aortic knob is seen. The lungs are clear. No evidence of pleural effusion or pneumothorax. IMPRESSION: No acute chest disease. ACT 112: Negative or not required by law. Electronically signed by: Heath Rockwell M.D. 03/11/2023 6:33 PM Chest CTA 03/11/23 18:21 CT angio chest wo/w con CLINICAL HISTORY: murmur, pain TECHNIQUE: Multidetector row helical CT of the chest was performed with angiographic protocol. Coronal and sagittal reformations were obtained. Coronal and sagittal MIPS were obtained from the axial data set and were submitted for review. Automated dose lowering techniques and/or adjustment according to patient size were utilized for this exam. CT DOSE: 972.73 mGy.cm Comparison: Comparison is made to CT chest 12/01/2021 FINDINGS: Lungs and pleura: There is a trace left pleural effusion and bibasilar atelectasis. There is a 3 mm nodule right middle lobe (series 7 image 155). Previously noted peripheral right lower lobe density is unchanged. This likely represents scarring. Heart and pericardium: Cardiomegaly is seen with biatrial enlargement. Vessels: No evidence of pulmonary embolism or aortic dissection. The origin of the major vessels is unremarkable. Moderate atherosclerotic disease is seen in the coronary arteries. Mediastinum and caryn: Unremarkable. Chest wall and lower neck: Unremarkable. Abdomen: A moderate hiatal hernia is seen. Bones: Degenerative changes in the thoracic spine. Reversed bilateral shoulder arthroplasties are seen. Old rib fractures are seen on the right. IMPRESSION: 1. No acute abnormalities and in particular no evidence of aortic dissection or other acute abnormality. 2. Redemonstration of cardiomegaly. 3. Trace left pleural effusion, decreased from prior exam. ACT 112: Negative or not required by law. Electronically signed by: Heath Rockwell M.D. 03/11/2023 7:41 PM ECG Additional Comments: ECG. Sinus rhythm with first-degree AV block with premature supraventricular complexes rate of 83. Nonspecific ST abnormality in inferior leads Code Status & VTE Plan VTE Prophylaxis Plan VTE Prophylaxis will be ordered: Yes (1) Chest pain Chest pain type: unspecified Qualified Code(s): R07.9 - Chest pain, unspecified
[2023-03-11] MEDS ORDERED: POLYETHYLENE (MIRALAX) 17 GM PACK PO PRN (21:53)
[2023-03-11] MEDS ORDERED: BENZONATATE 100 MG CAPSULE PO PRN (21:53)
[2023-03-11] MEDS ORDERED: LABETALOL HCL IV 5 MG/ML 20ML IV PRN (21:53)
[2023-03-11] MEDS ORDERED: hydrOXYzine HCl 10 MG TAB PO PRN (21:53)
[2023-03-11] MEDS: ROSUVASTATIN CALCIUM 10 MG TAB PO SCH (22:31)
[2023-03-11] MEDS: GABAPENTIN 300 MG CAP PO SCH (22:32)
[2023-03-11] MEDS: busPIRone 5 MG TAB PO SCH (22:32)
[2023-03-11] MEDS: APIXABAN 5 MG TABLET PO SCH (22:33)
[2023-03-12] MEDS: ACETAMINOPHEN 325 MG TAB PO PRN (00:11)
[2023-03-12] MEDS: ZOLPIDEM TARTRATE 5 MG TAB PO PRN (00:36)
[2023-03-12 04:58] LABS: Basophils # (auto) 0.05 K/uL (0.00-0.20); Eosinophils % (auto) 3.8 %; Hematocrit (blood only) 31.7 % (37.0-47.0); Hemoglobin 10.1 g/dl (12.0-16.0); Immature Granulocytes # (auto) 0.01 K/uL (0.01-0.20); Immature Granulocytes % (auto) 0.2 %; Lymphocytes # (auto) 2.18 K/uL (1.20-3.40); Lymphocytes % (auto) 41.6 %; Mean Corpuscular Hemoglobin 29.1 pg (25.0-34.0); Mean Corpuscular Hgb Conc 31.9 g/dL (32.0-36.0); Mean Corpuscular Volume 91.4 fL (80.0-100.0); Mean Platelet Volume 9.7 fL (9.4-12.4); Monocytes # (auto) 0.71 K/uL (0.11-0.59); Monocytes % (auto) 13.5 %; Neutrophils # (auto) 2.09 K/uL (1.40-6.50); Neutrophils % (auto) 39.9 %; Platelet Count 206 K/uL (130-400); RDW Coefficient of Variation 14.6 % (11.5-14.5); RDW Standard Deviation 48.5 fL (36.4-46.3); Red Blood Count 3.47 M/uL (4.20-5.40); White Blood Count 5.24 K/ul (4.8-10.8)
[2023-03-12 05:13] LABS: Creatinine Clr Calc Pharmacy 25.5 ml/min; Est GFR (Non-African American) 32.8 ml/min; Magnesium 1.9 mg/dl (1.7-2.4); Potassium 3.7 mmol/L (3.5-5.1)
[2023-03-12 05:27] LABS: Troponin I High Sensitivity 16.7 pg/ml (0-14)
[2023-03-12] MEDS: LEVOTHYROXINE SODIUM 100 MCG TABLET PO SCH (06:31)
[2023-03-12] MEDS: METOPROLOL SUCC 50MG EXT REL TAB PO SCH (08:49)
[2023-03-12] MEDS: LOSARTAN POTASSIUM 25 MG TAB PO SCH (08:50)
[2023-03-12] MEDS: CALCITRIOL 0.25 MCG CAPSULE PO SCH (08:50)
[2023-03-12] MEDS: PANTOprazole 40 MG TAB PO SCH (08:50)
--- NOTE | 2023-03-12 15:48 | Cardiology Consultation ---
Date of Consultation March 12, 2023 Assessment & Plan (1) Chest pain: (2) CAD (coronary artery disease): (3) Paroxysmal A-fib: (4) Mild aortic stenosis: Plan 1. Chest pain: She has had some extended episodes of chest pain. It is reproducible and positional. I do not think this represents a cardiac problem. Chest CT did not demonstrate any gross abnormality. Most likely musculoskeletal as previously discussed during the last admission. She was prescribed some nonsteroidal medication but she did not take this at home. She may benefit from more regular use of nonsteroidals. As noted previously her apixaban can be held while she takes the nonsteroidal medication. Alternatively, narcotics, steroids or possibly even a trial of colchicine for symptom relief. 2. Coronary artery disease: Remote history. Symptoms not currently disability representative of an acute coronary syndrome coronary insufficiency. Will continue aggressive secondary prevention. 3. Valvular heart disease: Noted to have mild aortic stenosis and mild mitral regurgitation. 4. Atrial fibrillation: Currently in sinus rhythm. No current symptoms of palpitations. On appropriate systemic anticoagulation which could be held as noted above. History of Present Illness Reason for Consultation: Chest pain Requesting Physician: Dg Attending Physician: Abelardo Fallon MD History of Present Illness The patient is an 84-year-old woman with history of CAD (SANDOVAL to LAD CABG 1998), mild to moderate valvular disease (/MR/TR), paroxysmal atrial fibrillation (metoprolol/apixaban), and prior mild HFpEF who was admitted January 2023 with pneumonia/mild volume overload and seen several times over the past month with symptoms of chest and arm discomfort. It seems that she has had some left lower chest pain on occasion for several years. These episodes tended to be infrequent and quite brief in duration. However, over the past few weeks she has been having more frequent episodes that have lasted longer. There seem to be some positional component and she is more comfortable lying down. There does not appear to be a pleuritic component. She does appear to be somewhat tender over the area in question. The episodes themselves have become extended in duration sometimes lasting a couple of hours. Due to her cardiac history she has had some concerns that this represents the beginning of a myocardial infarction or stroke. She has been seen in the emergency room for similar symptoms a few days ago. Based on the recurrent nature of her symptoms she was admitted overnight and cardiology was asked for an evaluation. Normally she is quite active. She is able to ambulate without limiting dyspnea or chest pain. She denies dizziness or lightheadedness. No palpitations. At the time my interview she was initially resting but upon awakening stated that she continued to have some discomfort along the lateral portion of the left ribs. Allergies Allergy/AdvReac Type Severity Reaction Status Date / Time nitroglycerin AdvReac Severe "PROJECTILE Verified 01/29/23 15:15 VOMITTING" ergotamine AdvReac Intermediate vomiting Verified 01/29/23 15:15 Home Medications Medication Instructions Recorded Confirmed Type levothyroxine 100 mcg tablet 100 mcg PO DAILYBB 01/23/18 03/11/23 History (Levoxyl) pantoprazole 40 mg tablet,delayed 40 mg PO AMHS 01/23/18 03/11/23 History release (Protonix) buspirone 10 mg tablet 10 mg PO BID #60 tabs 03/22/21 03/11/23 Rx gabapentin 300 mg capsule 300 mg PO TID 07/13/22 03/11/23 History rosuvastatin 10 mg tablet (Crestor) 10 mg PO HS 11/30/22 03/11/23 History calcitriol 0.25 mcg capsule 0.25 mcg PO MoWeFr@0900 #30 caps 12/12/22 03/11/23 Rx metoprolol succinate 50 mg 50 mg PO QAM #30 tabs 12/12/22 03/11/23 Rx tablet,extended release 24 hr zolpidem 5 mg tablet 5 mg PO HS PRN Sleep #30 tabs 01/16/23 03/11/23 Rx benzonatate 100 mg capsule 100 mg PO TID PRN Cough 01/29/23 03/11/23 History loperamide 2 mg tablet 2 mg PO QID PRN Diarrhea 01/29/23 03/11/23 History trazodone 150 mg tablet 150 mg PO HS 01/29/23 03/11/23 History apixaban 5 mg tablet (Eliquis) 5 mg PO AMHS 02/26/23 03/11/23 History ondansetron 4 mg disintegrating 4 mg PO Q6 PRN Nausea 02/26/23 03/11/23 History tablet hydroxyzine HCl 10 mg tablet 10 mg PO DAILY PRN anxiety #10 tabs 02/28/23 03/11/23 Rx losartan 25 mg tablet 25 mg PO QAM #30 tabs 02/28/23 03/11/23 Rx Patient History Medical History (Updated 03/12/23 @ 15:45 by Albino Crowe MD) Atrial fibrillation with rapid ventricular response (11/2022) History of rheumatic fever CAD (coronary artery disease) Hypophosphatemia Hypomagnesemia Acute on chronic diastolic CHF (congestive heart failure) Sepsis due to pneumonia Fall New onset a-fib Moderate mitral regurgitation Mild aortic stenosis Transient ischemic attack (TIA) ~2013>REASON FOR PLAVIX Osteoarthritis Chronic back pain Dyslipidemia History of blood transfusion 2012 03/2 GASTRIC ULCER History of gastric ulcer 2012 Depression Acid reflux OCCASIONAL Spinal stenosis Arthritis Hypothyroidism Chronic kidney disease stage 3 Hypertension Surgical History 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 History of cardiac cath NO STENTS History of coronary artery bypass graft 1998 (1 VESSEL) S/P epidural steroid injection History of esophagogastroduodenoscopy (EGD) S/p reverse total shoulder arthroplasty RT/LEFT History of abdominoplasty PANNICULECTOMY History of colonoscopy History of arthroplasty of right hip History of arthroplasty of left hip History of hysterectomy with oophorectomy History of arthroplasty of left shoulder History of tonsillectomy and adenoidectomy H/O bilateral salpingo-oophorectomy with hyter Family History Father Allergic reaction Mother CHF (congestive heart failure) Other No family history of adverse response to anesthesia Social History Smoking Status: Never smoker Second Hand Exposure: No; Do You Dip or Chew Tobacco: No; Hx Alcohol Use: No Hx Substance Use: No Preferred Language: Trin[place] Communication Ability: Effective Visual Impairment: No Limitations Veneer Layer Required: No Beliefs That Will Affect Care: None marital status: Single Current Living Situation: Alone Current Living Situation Comment: [facility] How many Children do You have: 0 Feels Safe at Home: Yes Safety Concerns: Feels Safe At This Time Assistive Devices: Walker Review of Systems Review of Systems: Per HPI Physical Exam Physical Exam: She is alert and oriented x3. Mood affect appear normal. She answered all questions appropriately. HEENT: Sclerae are anicteric. Pupils are equal and reactive to light and accommodation. Extraocular movements were intact. Neuro: Cranial nerves intact Chest: Patient did have some significant tenderness over the left lateral rib just above the margin of the ribs. Lungs: Lungs are clear to auscultation bilaterally. There are no rales wheezes or rhonchi. She has normal respiratory effort without use of accessory muscles. There is normal pulmonary excursion. Cardiac: The rhythm was regular. S1 and S2 were normal. Systolic murmur. The PMI was not markedly displaced on palpation. Abdomen: The abdomen was soft and nontender. Extremities: Patient has bilateral radial pulses that are equal in intensity. There is no evidence cyanosis or clubbing. There was no evidence of significant peripheral edema bilaterally. Skin: There are no rashes noted on examination today. Results & Data Vital Signs (Past 12 Hours) Vital Signs Pulse Pulse Resp BP BP Pulse Ox O2 Del Method 03/12/23 15:15 72 17 120/75 97 Room Air 03/12/23 07:29 76 03/12/23 07:07 138/82 03/12/23 07:07 73 18 97 03/12/23 07:00 68 18 97 03/12/23 06:00 68 17 91 03/12/23 04:48 Room Air 03/12/23 04:00 73 26 H 119/69 93 Laboratory Results Abnormal Lab Results 03/11/23 03/12/23 03/12/23 18:06 04:24 11:00 WBC 5.63 5.24 RBC 3.89 L 3.47 L Hgb 11.3 L 10.1 L Hct 35.0 L 31.7 L MCV 90.0 91.4 MCH 29.0 29.1 MCHC 32.3 31.9 L RDW Std Deviation 48.1 H 48.5 H RDW Coeff of Howie 14.6 H 14.6 H Plt Count 230 206 MPV 9.6 9.7 Immature Gran % (Auto) 0.2 Neut % (Auto) 39.9 Lymph % (Auto) 41.6 [place] % (Auto) 13.5 Eos % (Auto) 3.8 Baso % (Auto) 1.0 Neut # (Auto) 2.09 Lymph # (Auto) 2.18 [place] # (Auto) 0.71 H Eos # (Auto) 0.20 Baso # (Auto) 0.05 Immature Gran # (Auto) 0.01 PT 12.1 H INR 1.1 APTT 25 PTT Ratio 0.9 Sodium 139 138 Potassium 4.3 3.7 Chloride 107 106 Carbon Dioxide 24 25 Anion Gap 8 7 BUN 20 23 Creatinine 1.27 H 1.44 H Est Cr Clr Drug Dosing 28.9 25.5 Est GFR ( Amer) 44.3 38.0 Est GFR (Non-Af Amer) 38.2 32.8 BUN/Creatinine Ratio 15.7 16.0 Glucose 90 95 Calcium 10.6 H 10.0 Magnesium 1.7 1.9 Troponin I High Sens 11.7 16.7 H D 13.8 Diagnostic Findings Echocardiogram performed 01/30/2023: Preserved LV systolic function. Mild aortic stenosis. Mild mitral regurgitation. PG Care Time/CCT Total # of Minutes Spent Total Time Spent with Patient: Total time spent is greater than 50% in coordination of care (as documented) at patient's floor/unit and/or counseling patient: Coding Level of Care Code 02785 INT INP/OBS CARE 3/75MIN Diagnoses Chest pain R07.9 Chest pain type: unspecified Coronary artery disease involving [place] coronary artery of [place] heart without angina pectoris I25.10 Associated angina: without angina Coronary Disease-Associated Artery/Lesion type: [place] artery [place] vs. transplanted heart: [place] heart Paroxysmal A-fib I48.0 Mild aortic stenosis I35.0 (1) Chest pain Chest pain type: unspecified Qualified Code(s): R07.9 - Chest pain, unspecified (2) CAD (coronary artery disease) Associated angina: without angina Coronary Disease-Associated Artery/Lesion type: [place] artery [place] vs. transplanted heart: [place] heart Qualified Code(s): I25.10 - Atherosclerotic heart disease of [place] coronary artery without angina pectoris
--- NOTE | 2023-03-12 16:25 | Electrocardiogram Report ---
Test Reason : Blood Pressure : / mmHG Vent. Rate : 081 BPM Atrial Rate : 081 BPM P-R Int : 242 ms QRS Dur : 078 ms QT Int : 366 ms P-R-T Axes : 076 007 007 degrees QTc Int : 425 ms Sinus rhythm with sinus arrhythmia with 1st degree A-V block Otherwise normal ECG When compared with ECG of 11-MAR-2023 13:09, (unconfirmed) Premature supraventricular complexes are no longer Present Criteria for Inferior infarct are no longer Present Nonspecific T wave abnormality, improved in Inferior leads Confirmed by Albino Crowe ([id number]) on 03/12/2023 4:25:07 PM Referred By: REFERRED SELF Confirmed By:Cliff Crowe
--- NOTE | 2023-03-12 16:40 | Electrocardiogram Report ---
Test Reason : Blood Pressure : / mmHG Vent. Rate : 075 BPM Atrial Rate : 075 BPM P-R Int : 258 ms QRS Dur : 072 ms QT Int : 376 ms P-R-T Axes : 051 -09 019 degrees QTc Int : 419 ms Sinus rhythm with marked sinus arrhythmia with 1st degree A-V block with occasional Premature ventric ular complexes (possibly blocked PACS) Poor R wave progression, consider anterior ND vs. lead placement vs. LVH Abnormal ECG When compared with ECG of 11-MAR-2023 17:46, (unconfirmed) Premature ventricular complexes are now Present Confirmed by Albino Crowe ([id number]) on 03/12/2023 4:39:59 PM Referred By: REFERRED SELF Confirmed By:Cliff Crowe
--- NOTE | 2023-03-12 18:32 | Hospitalist Progress Note ---
Date of Service March 12, 2023 Assessment & Plan (1) Chest pain: Plan: 84-year-old female past med history significant for hypothyroidism, hyperlipidemia, hypercalcemia, hiatal hernia, chronic diastolic CHF, CKD stage III, CAD s/p CABG, hypertension, chronic atrial fibrillation, mild aortic stenosis, GERD, degenerative disc disease, anxiety, history of gastric ulcer, depression presents with chest pain. Patient was earlier in the ER with chest pain workup was okay and she felt going home and got discharged. After going home the chest pain came back with some shortness of breath palpitations and came back. Currently pain is on left side of chest dull aching. She ambulated to the bathroom okay in ER. Resting she has no shortness of breath. Denies any headache. No blurred visions. No runny nose or sore throat. No cough. Today she could not eat much. Decreased micturition today. Normal bowel movements. No abdominal pain. No nausea. No sweating. No dizziness. Currently resting comfortably and hemodynamically stable. Patient was in the hospital in January with sepsis from pneumonia and acute on chronic diastolic CHF. And also she was recently admitted on February 26 to for rapid A-fib and CHF. Chest pain-likely musculoskeletal Was in the ER earlier workup was negative and got discharged comes back again with recurrent chest pain So far 3 sets of troponin negative. EKG no acute findings CTA chest no acute findings Serial enzymes-unremarkable for any ACS Appreciate cardiology input and recommendation Will start ibuprofen 600 milligram 3 times daily Apply diclofenac locally Hold Eliquis for now History of CAD s/p CABG On beta-brendan, statin and Eliquis History of atrial fibrillation On beta-brendan and Eliquis Hypertension On losartan, metoprolol succinate Blood pressure elevated IV labetalol as needed Will monitor Hypothyroidism On Synthyroid CKD stage III Creatinine 1.2 Will follow the labs GERD On Protonix Chronic diastolic CHF Will monitor for volume overload DVT prophylaxis On Eliquis Disposition Observe in med/tele Full code Admission and Anticipated Discharge Date Admission Date: March 11, 2023 Subjective 03/12/2023 The patient was seen and examined in medical telemetry unit She has been complaining of on and off left sided chest pain without exertion It has been lasting longer than before Denies any associated symptoms of shortness of breath, sweating or palpitation with it Has been feeling much better since admission Review of Systems Review of Systems: All systems reviewed and are unremarkable except as noted below Physical Exam Constitutional: well developed, well nourished and + ill appearing Eyes: PERRL, conjunctivae normal, anicteric sclerae ENMT: external ear and nose normal, oropharynx normal Neck: trachea midline, no thyromegaly Respiratory: no respiratory distress Auscultation: lungs clear to auscultation bilaterally Cardiovascular: Rate/Rhythm: + irregularly irregular; not tachycardic Heart Sounds: normal S1, normal S2 and + murmur (2/6 systolic murmur over precordium) Extremities: no edema Chest (Breasts): Additional Comments: Tenderness over left precordium at the costochondral junction Gastrointestinal (Abdomen): Inspection/Auscultation: normal bowel sounds; abdomen not distended Percussion/Palpation: abdomen soft; abdomen nontender Musculoskeletal: No acute arthritis involving any joint Neurologic: normal touch/pain/proprioception and moves all extremities; no focal motor deficits Lymphatic: no cervical or axillary lymphadenopathy Results & Data Results & Data Vital Signs (Past 12 Hours) Vital Signs Temp Pulse Pulse Pulse Resp BP BP 03/12/23 17:23 03/12/23 17:20 70 03/12/23 17:04 37.5 C 75 20 133/84 03/12/23 15:15 72 17 120/75 03/12/23 07:29 76 03/12/23 07:07 138/82 03/12/23 07:07 73 18 03/12/23 07:00 68 18 Pulse Ox O2 Del Method 03/12/23 17:23 Room Air 03/12/23 17:20 03/12/23 17:04 96 Room Air 03/12/23 15:15 97 Room Air 03/12/23 07:29 03/12/23 07:07 03/12/23 07:07 97 03/12/23 07:00 97 Laboratory Results Short CBC 03/12/23 Range/Units 04:24 WBC 5.24 (4.8-10.8) K/ul Hgb 10.1 L (12.0-16.0) g/dl Hct 31.7 L (37.0-47.0) % Plt Count 206 (130-400) K/uL BMP 03/11/23 03/12/23 18:06 04:24 Sodium 139 138 Potassium 4.3 3.7 Chloride 107 106 Carbon Dioxide 24 25 BUN 20 23 Creatinine 1.27 H 1.44 H Glucose 90 95 Calcium 10.6 H 10.0 Medications Administered Current Inpatient Medications Acetaminophen (Acetaminophen 325 Mg Tab) 650 mg PO Q4H PRN PRN Reason: Pain or Fever Stop: 04/10/23 21:52 Last Admin: 03/12/23 17:11 Dose: 650 mg Apixaban (Apixaban 5 Mg Tablet) 5 mg PO AMHS [facility] Stop: 04/10/23 21:52 Last Admin: 03/12/23 08:49 Dose: 5 mg Benzonatate (Benzonatate 100 Mg Capsule) 100 mg PO TID PRN PRN Reason: Cough Stop: 04/10/23 21:52 Buspirone HCl (Buspirone 5 Mg Tab) 10 mg PO BID [facility] Stop: 04/10/23 21:52 Last Admin: 03/12/23 08:49 Dose: 10 mg Calcitriol (Calcitriol 0.25 Mcg Capsule) 0.25 mcg PO MoWeFr@0900 [facility] Stop: 04/11/23 08:59 Last Admin: 03/12/23 08:50 Dose: 0.25 mcg Gabapentin (Gabapentin 300 Mg Cap) 300 mg PO TID [facility] Stop: 04/10/23 21:52 Last Admin: 03/12/23 15:11 Dose: 300 mg Hydroxyzine HCl (Hydroxyzine Hcl 10 Mg Tab) 10 mg PO DAILY PRN PRN Reason: anxiety Stop: 04/10/23 21:52 Labetalol HCl (Labetalol Hcl Iv 5 Mg/Ml 20ml) 10 mg IV Q4H PRN PRN Reason: Hypertension Stop: 04/10/23 21:52 Levothyroxine Sodium (Levothyroxine Sodium 100 Mcg Tablet) 100 mcg PO DAILYBB [facility] Stop: 04/11/23 06:29 Last Admin: 03/12/23 06:31 Dose: 100 mcg Losartan Potassium (Losartan Potassium 25 Mg Tab) 25 mg PO QAM [facility] Stop: 04/11/23 08:59 Last Admin: 03/12/23 08:50 Dose: 25 mg Metoprolol Succinate (Metoprolol Succ 50mg Ext Rel Tab) 50 mg PO QAM [facility] Stop: 04/11/23 08:59 Last Admin: 03/12/23 08:49 Dose: 50 mg Nitroglycerin (Nitroglycerin Sl 0.4 Mg/Tab Tab) 0.4 mg SL Q5M PRN PRN Reason: Chest Pain Stop: 04/10/23 21:52 Pantoprazole Sodium (Pantoprazole 40 Mg Tab) 40 mg PO [facility] Stop: 04/11/23 08:59 Last Admin: 03/12/23 08:50 Dose: 40 mg Polyethylene Glycol (Polyethylene (Miralax) 17 Gm Pack) 17 gm PO DAILY PRN PRN Reason: Constipation Stop: 04/10/23 21:52 Rosuvastatin Calcium (Rosuvastatin Calcium 10 Mg Tab) 10 mg PO HS YAN Stop: 04/10/23 21:52 Last Admin: 03/11/23 22:31 Dose: 10 mg Trazodone HCl (Trazodone Hcl 50 Mg Tab) 150 mg PO HS [facility] Stop: 04/11/23 20:59 Zolpidem Tartrate (Zolpidem Tartrate 5 Mg Tab) 5 mg PO HS PRN PRN Reason: Sleep Stop: 04/10/23 21:52 Last Admin: 03/12/23 00:36 Dose: 5 mg (1) Chest pain Chest pain type: unspecified Qualified Code(s): R07.9 - Chest pain, unspecified
[2023-03-12] MEDS: IBUPROFEN 600 MG TAB PO SCH (18:51)
[2023-03-12] MEDS: MoRPHine SULFATE 2 MG/ML CARP IV STA (20:00)
[2023-03-12] MEDS: traZODone HCL 50 MG TAB PO SCH (21:22)
[2023-03-13 06:14] LABS: Basophils # (auto) 0.04 K/uL (0.00-0.20); Basophils % (auto) 0.7 %; Eosinophils # (auto) 0.29 K/uL (0.00-0.50); Eosinophils % (auto) 4.9 %; Hematocrit (blood only) 31.2 % (37.0-47.0); Hemoglobin 9.9 g/dl (12.0-16.0); Immature Granulocytes # (auto) 0.02 K/uL (0.01-0.20); Immature Granulocytes % (auto) 0.3 %; Lymphocytes # (auto) 2.28 K/uL (1.20-3.40); Lymphocytes % (auto) 38.8 %; Mean Corpuscular Hemoglobin 28.7 pg (25.0-34.0); Mean Corpuscular Hgb Conc 31.7 g/dL (32.0-36.0); Mean Corpuscular Volume 90.4 fL (80.0-100.0); Mean Platelet Volume 9.5 fL (9.4-12.4); Monocytes # (auto) 0.62 K/uL (0.11-0.59); Monocytes % (auto) 10.6 %; Neutrophils # (auto) 2.62 K/uL (1.40-6.50); Neutrophils % (auto) 44.7 %; Platelet Count 207 K/uL (130-400); RDW Coefficient of Variation 14.6 % (11.5-14.5); RDW Standard Deviation 48.5 fL (36.4-46.3); Red Blood Count 3.45 M/uL (4.20-5.40); White Blood Count 5.87 K/ul (4.8-10.8)
[2023-03-13 06:32] LABS: Calcium 9.8 mg/dl (8.6-10.3); Creatinine Clr Calc Pharmacy 23.4 ml/min; Est GFR (Non-African American) 29.3 ml/min; Potassium 3.9 mmol/L (3.5-5.1)
--- NOTE | 2023-03-13 12:22 | Electrocardiogram Report ---
Test Reason : Blood Pressure : / mmHG Vent. Rate : 067 BPM Atrial Rate : 067 BPM P-R Int : 274 ms QRS Dur : 086 ms QT Int : 406 ms P-R-T Axes : 068 009 019 degrees QTc Int : 429 ms Sinus rhythm with 1st degree A-V block with Premature supraventricular complexes Abnormal ECG When compared with ECG of 12-MAR-2023 13:10, Premature ventricular complexes are no longer Present Premature supraventricular complexes are now Present Confirmed by Albino Crowe ([id number]) on 03/13/2023 12:21:50 PM Referred By: REFERRED SELF Confirmed By:Cliff Crowe
--- NOTE | 2023-03-13 13:02 | Psychiatric Consultation ---
Date of Consultation March 13, 2023 Impression / Recommendations Impression 84 y/o F with history of anxiety, who denies a history of depression. She says her anxiety is very well-controlled on her current regimen of buspirone 10 mg BID and does not want her medications changed. Clinical notes do not reflect symptoms of depression or anxiety She reports a recent reduction in middle awakenings, which she correlates with a fairly recently-started medication that she takes at bedtime (plausibly trazodone). I spoke with her about my opinion that trazodone is a good long-term option for sleep, especially for middle insomnia, and that zolpidem is associated with a number of risks not least of which is falls. Overall I spent a total of 53 minutes on the floor for this consultation assessment including review of chart records, review of test results, direct evaluation of the patient [id number], counseling the patient, medication education with the patient, risk assessment, discussion with the psychiatric liaison nurse, and documentation in the electronic health record. (1) Anxiety: Plan I recommend no change in pt's psychiatric medicaiton regimen, though I told her she should consider eliminating zolpidem and, if she has trouble getting to sleep, increasing trazodone. This is most likely something that would appropriate for her to pursue on an outpatient basis. Psych History Identifying Data KENTON LEACH is a 84-year-old F with a history of depression and anxiety, admitted on 03/11/2023 for chest pain. Consult is by the hospitalist service for "Severe Depression/Anxiety". Chief Complaint "I'm really looking forward to getting out of here, hopefully before too long". 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 She says she's "feeling pretty good now" and looking forward to returning to her [facility] community. Pt says she's "not sure where a diagnosis of depression comes from" and denies that she's had any ongoing periods of markedly low mood, loss of appetite, motivation or interest, anhedonia, or hopelessness. She does acknowsedge "longstanding anxiety" but emphasizes "it's under really good control right now" and that does "not want anyone messing with" her medication. She describes a longstanding sleep pattern of reading until midnight then turning off her lights and nearly always taking zolpidem. She wakes around 0700, has a cup of coffee, then returns to bed to read the newspaper until about 0900 when she gets up for the day. She says that "since they added something" (she doesn't recall the name, but very plausibly trazodone) she's "stopped waking up in the middle of the night" and feels fully-rested in the morning. Pt speaks with some enthusiasm about the [employer] book she's reading and tells some sarcastically humorous anecdotes about her [facility] community. She is alert, oriented to person, place, time, and circumstances. Her recall of medication specifics is poor ("I just line them all up and take them the way the label says, but I don't pay that much attention to details - isn't that awful?") but as far as I can tell her recent and long-term recall are intact. Past Psychiatric History Previous Psych Admissions: none Do You Have Access To A Gun?: No History of Previous Suicide Attempt: No Allergies Allergy/AdvReac Type Severity Reaction Status Date / Time nitroglycerin AdvReac Severe "PROJECTILE Verified 01/29/23 15:15 VOMITTING" ergotamine AdvReac Intermediate vomiting Verified 01/29/23 15:15 Home Medications Medication Instructions Recorded Confirmed Type levothyroxine 100 mcg tablet 100 mcg PO DAILYBB 01/23/18 03/11/23 History (Levoxyl) pantoprazole 40 mg tablet,delayed 40 mg PO AMHS 01/23/18 03/11/23 History release (Protonix) buspirone 10 mg tablet 10 mg PO BID #60 tabs 03/22/21 03/11/23 Rx gabapentin 300 mg capsule 300 mg PO TID 07/13/22 03/11/23 History rosuvastatin 10 mg tablet (Crestor) 10 mg PO HS 11/30/22 03/11/23 History calcitriol 0.25 mcg capsule 0.25 mcg PO MoWeFr@0900 #30 caps 12/12/22 03/11/23 Rx metoprolol succinate 50 mg 50 mg PO QAM #30 tabs 12/12/22 03/11/23 Rx tablet,extended release 24 hr zolpidem 5 mg tablet 5 mg PO HS PRN Sleep #30 tabs 01/16/23 03/11/23 Rx benzonatate 100 mg capsule 100 mg PO TID PRN Cough 01/29/23 03/11/23 History loperamide 2 mg tablet 2 mg PO QID PRN Diarrhea 01/29/23 03/11/23 History trazodone 150 mg tablet 150 mg PO HS 01/29/23 03/11/23 History apixaban 5 mg tablet (Eliquis) 5 mg PO AMHS 02/26/23 03/11/23 History ondansetron 4 mg disintegrating 4 mg PO Q6 PRN Nausea 02/26/23 03/11/23 History tablet hydroxyzine HCl 10 mg tablet 10 mg PO DAILY PRN anxiety #10 tabs 02/28/23 03/11/23 Rx losartan 25 mg tablet 25 mg PO QAM #30 tabs 02/28/23 03/11/23 Rx Patient History Medical History Atrial fibrillation with rapid ventricular response (11/2022) History of rheumatic fever CAD (coronary artery disease) Hypophosphatemia Hypomagnesemia Acute on chronic diastolic CHF (congestive heart failure) Sepsis due to pneumonia Fall New onset a-fib Moderate mitral regurgitation Mild aortic stenosis Transient ischemic attack (TIA) ~2012>REASON FOR [facility]VIX Osteoarthritis Chronic back pain Dyslipidemia History of blood transfusion 2012 2/2 GASTRIC ULCER History of gastric ulcer 2012 Depression Acid reflux OCCASIONAL Spinal stenosis Arthritis Hypothyroidism Chronic kidney disease stage 3 Hypertension Surgical History 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 History of cardiac cath NO STENTS History of coronary artery bypass graft 1998 (1 VESSEL) S/P epidural steroid injection History of esophagogastroduodenoscopy (EGD) S/p reverse total shoulder arthroplasty RT/LEFT History of abdominoplasty PANNICULECTOMY History of colonoscopy History of arthroplasty of right hip History of arthroplasty of left hip History of hysterectomy with oophorectomy History of arthroplasty of left shoulder History of tonsillectomy and adenoidectomy H/O bilateral salpingo-oophorectomy with hyter Family History Father , age 74 Allergic reaction Mother , 80s CHF (congestive heart failure) Other No family history of adverse response to anesthesia Social History Smoking Status: Never smoker Second Hand Exposure: No; Do You Dip or Chew Tobacco: No; Hx Alcohol Use: No Hx Substance Use: No Preferred Language: [place] Islander Communication Ability: Effective Visual Impairment: No Limitations Store Consultant Required: No Beliefs That Will Affect Care: None marital status: Single Current Living Situation: Alone Current Living Situation Comment: [facility] How many Children do You have: 0 Feels Safe at Home: Yes Assistive Devices: Walker Physical Exam Psychiatric: Orientation: alert, oriented to person, oriented to place, oriented to time and cooperative Apperance: appropriately dressed and appropriately groomed; + did not appear stated age (appears younger) Eye Contact: good eye contact Motor Behavior: no abnormal motor movements Speech: normal rate/rhythm/volume of speech Affect: euthymic affect Mood: no depressed mood and no anxious mood Thought Process: linear/logical thought process, clear/coherent thought process and thought association intact Thought Content: reality based without delusions Suicidal Thoughts: denies suicidal thoughts, denies suicidal plan and denies suicidal intent Homicidal Thoughts: denies homicidal thoughts Hallucinations: no auditory hallucinations and no visual hallucinations Cognition: recent memory grossly intact, remote memory grossly intact, attention grossly intact and language grossly intact Estimated 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 I accept those physicals as correct and have incorporated that information into my assessment. Review of Systems Psychiatric: no depression, no hopelessness, no anhedonia, no abnormal sleep pattern (with current medications), no suicidal ideation, no anxiety, no panic attacks, no confusion, no paranoia and no hallucinations Results & Data (PSY) Medications Administered Acetaminophen (Acetaminophen 325 Mg Tab) 650 mg PO Q4H PRN PRN Reason: Pain or Fever Stop: 04/10/23 21:52 Last Admin: 03/12/23 17:11 Dose: 650 mg Documented By: Admin: 03/12/23 06:34 Dose: 650 mg Documented By: Admin: 03/12/23 00:11 Dose: 650 mg Documented By: HARSH Apixaban (Apixaban 5 Mg Tablet) 5 mg PO AMHS [facility] Stop: 04/10/23 21:52 Last Admin: 03/12/23 08:49 Dose: 5 mg Documented By: Admin: 03/11/23 22:33 Dose: 5 mg Documented By: ALCON Buspirone HCl (Buspirone 5 Mg Tab) 10 mg PO BID [facility] Stop: 04/10/23 21:52 Last Admin: 03/13/23 09:07 Dose: 10 mg Documented By: Admin: 03/12/23 21:21 Dose: 10 mg Documented By: Admin: 03/12/23 08:49 Dose: 10 mg Documented By: Admin: 03/11/23 22:32 Dose: 10 mg Documented By: ALCON Calcitriol (Calcitriol 0.25 Mcg Capsule) 0.25 mcg PO MoWeFr@0900 [facility] Stop: 04/11/23 08:59 Last Admin: 03/12/23 08:50 Dose: 0.25 mcg Documented By: PRANAV Gabapentin (Gabapentin 300 Mg Cap) 300 mg PO TID [facility] Stop: 04/10/23 21:52 Last Admin: 03/13/23 09:07 Dose: 300 mg Documented By: Admin: 03/12/23 21:21 Dose: 300 mg Documented By: Admin: 03/12/23 15:11 Dose: 300 mg Documented By: Admin: 03/12/23 08:50 Dose: 300 mg Documented By: Admin: 03/11/23 22:32 Dose: 300 mg Documented By: ALCON Ibuprofen (Ibuprofen 600 Mg Tab) 600 mg PO Q8H [facility] Stop: 04/11/23 18:59 Last Admin: 03/13/23 10:26 Dose: 600 mg Documented By: Admin: 03/13/23 02:29 Dose: 600 mg Documented By: Admin: 03/12/23 18:51 Dose: 600 mg Documented By: ALLEN Levothyroxine Sodium (Levothyroxine Sodium 100 Mcg Tablet) [facility] Stop: 04/11/23 06:29 Last Admin: 03/13/23 06:00 Dose: 100 mcg Documented By: Admin: 03/12/23 06:31 Dose: 100 mcg Documented By: PAULINE Losartan Potassium (Losartan Potassium 25 Mg Tab) 25 mg PO [facility] Stop: 04/11/23 08:59 Last Admin: 03/13/23 09:07 Dose: 25 mg Documented By: Admin: 03/12/23 08:50 Dose: 25 mg Documented By: PRANAV Metoprolol Succinate (Metoprolol Succ 50mg Ext Rel Tab) 50 mg PO [facility] Stop: 04/11/23 08:59 Last Admin: 03/13/23 09:07 Dose: 50 mg Documented By: Admin: 03/12/23 08:49 Dose: 50 mg Documented By: PRANAV Pantoprazole Sodium (Pantoprazole 40 Mg Tab) 40 mg PO [facility] Stop: 04/11/23 08:59 Last Admin: 03/13/23 09:07 Dose: 40 mg Documented By: Admin: 03/12/23 21:21 Dose: 40 mg Documented By: Admin: 03/12/23 08:50 Dose: 40 mg Documented By: PRANAV Rosuvastatin Calcium (Rosuvastatin Calcium 10 Mg Tab) 10 mg PO [facility] Stop: 04/10/23 21:52 Last Admin: 03/12/23 21:21 Dose: 10 mg Documented By: Admin: 03/11/23 22:31 Dose: 10 mg Documented By: ALCON Trazodone HCl (Trazodone Hcl 50 Mg Tab) 150 mg PO [facility] Stop: 04/11/23 20:59 Last Admin: 03/12/23 21:22 Dose: 150 mg Documented By: DANIEL Zolpidem Tartrate (Zolpidem Tartrate 5 Mg Tab) 5 mg PO HS PRN PRN Reason: Sleep Stop: 04/10/23 21:52 Last Admin: 03/12/23 22:49 Dose: 5 mg Documented By: Admin: 01/22/24 00:36 Dose: 5 mg Documented By: NRB Coding Level of Care Code 47746 [facility] Intl Hosp Care Lvl 2 Diagnoses Anxiety F41.9 Time Spent (min) 53
[2023-03-13] MEDS: NITROGLYCERIN SL 0.4 MG/TAB TAB SL PRN (15:22)
--- NOTE | 2023-03-13 15:57 | Hospitalist Progress Note ---
Date of Service March 13, 2023 Assessment & Plan (1) Chest pain: Plan: 84-year-old female past med history significant for hypothyroidism, hyperlipidemia, hypercalcemia, hiatal hernia, chronic diastolic CHF, CKD stage III, CAD s/p CABG, hypertension, chronic atrial fibrillation, mild aortic stenosis, GERD, degenerative disc disease, anxiety, history of gastric ulcer, depression presents with chest pain. Patient was earlier in the ER with chest pain workup was okay and she felt going home and got discharged. After going home the chest pain came back with some shortness of breath palpitations and came back. Currently pain is on left side of chest dull aching. She ambulated to the bathroom okay in ER. Resting she has no shortness of breath. Denies any headache. No blurred visions. No runny nose or sore throat. No cough. Today she could not eat much. Decreased micturition today. Normal bowel movements. No abdominal pain. No nausea. No sweating. No dizziness. Currently resting comfortably and hemodynamically stable. Patient was in the hospital in January with sepsis from pneumonia and acute on chronic diastolic CHF. And also she was recently admitted on February 26 to for rapid A-fib and CHF. Chest pain-likely musculoskeletal Was in the ER earlier workup was negative and got discharged comes back again with recurrent chest pain So far 3 sets of troponin negative. EKG no acute findings CTA chest no acute findings Serial enzymes-unremarkable for any ACS Appreciate cardiology input and recommendation Will start ibuprofen 600 milligram 3 times daily Apply diclofenac locally Hold Eliquis for now Pain is much controlled with ibuprofen Will restart Eliquis now and stop ibuprofen History of CAD s/p CABG On beta-brendan, statin and Eliquis History of atrial fibrillation On beta-brendan and Eliquis Hypertension On losartan, metoprolol succinate Blood pressure elevated IV labetalol as needed Will monitor Hypothyroidism On Synthyroid CKD stage III Creatinine 1.2 Will follow the labs GERD On Protonix Chronic diastolic CHF Will monitor for volume overload DVT prophylaxis On Eliquis Disposition Observe in med/tele Full code Admission and Anticipated Discharge Date Admission Date: March 11, 2023 Subjective 03/12/2023 The patient was seen and examined in medical telemetry unit She has been complaining of on and off left sided chest pain without exertion It has been lasting longer than before Denies any associated symptoms of shortness of breath, sweating or palpitation with it Has been feeling much better since admission 04/13/2023 The patient was seen and examined in medical telemetry unit She has been much better today Got a note from her one of the care providers that she has been very anxious has been messing up with medications and also known to be very very depressed Discussed with that to her and asked for a psychiatric evaluation Remains free from any pain today Review of Systems Review of Systems: All systems reviewed and are unremarkable except as noted below Physical Exam Constitutional: well developed, well nourished and + ill appearing Eyes: PERRL, conjunctivae normal, anicteric sclerae ENMT: external ear and nose normal, oropharynx normal Neck: trachea midline, no thyromegaly Respiratory: no respiratory distress Auscultation: lungs clear to auscultation bilaterally Cardiovascular: Rate/Rhythm: + irregularly irregular; not tachycardic Heart Sounds: normal S1, normal S2 and + murmur (2/6 systolic murmur over precordium) Extremities: no edema Gastrointestinal (Abdomen): Inspection/Auscultation: normal bowel sounds; abdomen not distended Percussion/Palpation: abdomen soft; abdomen nontender Musculoskeletal: No acute arthritis involving any of the joint Neurologic: normal touch/pain/proprioception and moves all extremities; no focal motor deficits Lymphatic: no cervical or axillary lymphadenopathy Results & Data Results & Data Vital Signs (Past 12 Hours) Vital Signs Temp Pulse Resp BP Pulse Ox O2 Del Method 03/13/23 15:44 36.5 C 76 20 121/79 97 Room Air 03/13/23 14:30 98 03/13/23 11:20 36.4 C L 70 18 112/71 97 Room Air 03/13/23 08:01 36.4 C L 67 18 134/65 94 Room Air 03/13/23 04:00 36.4 C L 70 20 117/73 97 Room Air Laboratory Results Short CBC 03/13/23 Range/Units 05:44 WBC 5.87 (4.8-10.8) K/ul Hgb 9.9 L (12.0-16.0) g/dl Hct 31.2 L (37.0-47.0) % Plt Count 207 (130-400) K/uL BMP 03/13/23 05:44 Sodium 137 Potassium 3.9 Chloride 106 Carbon Dioxide 26 BUN 30 H Creatinine 1.58 H Glucose 97 Calcium 9.8 Medications Administered Current Inpatient Medications Acetaminophen (Acetaminophen 325 Mg Tab) 650 mg PO Q4H PRN PRN Reason: Pain or Fever Stop: 04/10/23 21:52 Last Admin: 03/12/23 17:11 Dose: 650 mg Apixaban (Apixaban 5 Mg Tablet) [address] [facility] Stop: 04/10/23 21:52 Last Admin: 03/12/23 08:49 Dose: 5 mg Benzonatate (Benzonatate 100 Mg Capsule) 100 mg PO TID PRN PRN Reason: Cough Stop: 04/10/23 21:52 Buspirone HCl (Buspirone 5 Mg Tab) [address] [facility] Stop: 04/10/23 21:52 Last Admin: 03/13/23 09:07 Dose: 10 mg Calcitriol (Calcitriol 0.25 Mcg Capsule) 0.25 mcg PO [id number] [facility] Stop: 04/11/23 08:59 Last Admin: 03/12/23 08:50 Dose: 0.25 mcg Gabapentin (Gabapentin 300 Mg Cap) [address] [facility] Stop: 04/10/23 21:52 Last Admin: 03/13/23 14:29 Dose: 300 mg Hydroxyzine HCl (Hydroxyzine Hcl 10 Mg Tab) 10 mg PO DAILY PRN PRN Reason: anxiety Stop: 04/10/23 21:52 Ibuprofen (Ibuprofen 600 Mg Tab) [address] [facility] Stop: 04/11/23 18:59 Last Admin: 03/13/23 10:26 Dose: 600 mg Labetalol HCl (Labetalol Hcl Iv 5 Mg/Ml 20ml) 10 mg IV Q4H PRN PRN Reason: Hypertension Stop: 04/10/23 21:52 Levothyroxine Sodium (Levothyroxine Sodium 100 Mcg Tablet) [address] [facility] Stop: 04/11/23 06:29 Last Admin: 03/13/23 06:00 Dose: 100 mcg Losartan Potassium (Losartan Potassium 25 Mg Tab) [address] [facility] Stop: 04/11/23 08:59 Last Admin: 03/13/23 09:07 Dose: 25 mg Metoprolol Succinate (Metoprolol Succ 50mg Ext Rel Tab) [facility] [place]: 04/11/23 08:59 Last Admin: 03/13/23 09:07 Dose: 50 mg Nitroglycerin (Nitroglycerin Sl 0.4 Mg/Tab Tab) 0.4 mg SL Q5M PRN PRN Reason: Chest Pain Stop: 04/10/23 21:52 Last Admin: 03/13/23 15:22 Dose: 0.4 mg Pantoprazole Sodium (Pantoprazole 40 Mg Tab) 40 mg PO AMHS [facility] Stop: 04/11/23 08:59 Last Admin: 03/13/23 09:07 Dose: 40 mg Polyethylene Glycol (Polyethylene (Miralax) 17 Gm Pack) 17 gm PO DAILY PRN PRN Reason: Constipation Stop: 04/10/23 21:52 Rosuvastatin Calcium (Rosuvastatin Calcium 10 Mg Tab) 10 mg PO HS [facility]AN Stop: 04/10/23 21:52 Last Admin: 03/12/23 21:21 Dose: 10 mg Trazodone HCl (Trazodone Hcl 50 Mg Tab) 150 mg PO HS [facility]AN Stop: 04/11/23 20:59 Last Admin: 03/12/23 21:22 Dose: 150 mg Zolpidem Tartrate (Zolpidem Tartrate 5 Mg Tab) 5 mg PO HS PRN PRN Reason: Sleep Stop: 04/10/23 21:52 Last Admin: 03/12/23 22:49 Dose: 5 mg (1) Chest pain Chest pain type: unspecified Qualified Code(s): R07.9 - Chest pain, unspecif ied
[2023-03-14 06:59] LABS: Basophils # (auto) 0.03 K/uL (0.00-0.20); Basophils % (auto) 0.5 %; Eosinophils % (auto) 5.4 %; Hematocrit (blood only) 31.7 % (37.0-47.0); Immature Granulocytes # (auto) 0.01 K/uL (0.01-0.20); Immature Granulocytes % (auto) 0.2 %; Lymphocytes # (auto) 2.35 K/uL (1.20-3.40); Lymphocytes % (auto) 42.6 %; Mean Corpuscular Hemoglobin 28.8 pg (25.0-34.0); Mean Corpuscular Hgb Conc 31.5 g/dL (32.0-36.0); Mean Corpuscular Volume 91.4 fL (80.0-100.0); Mean Platelet Volume 10.1 fL (9.4-12.4); Monocytes # (auto) 0.66 K/uL (0.11-0.59); Neutrophils # (auto) 2.17 K/uL (1.40-6.50); Neutrophils % (auto) 39.3 %; Platelet Count 206 K/uL (130-400); RDW Coefficient of Variation 14.8 % (11.5-14.5); RDW Standard Deviation 49.1 fL (36.4-46.3); Red Blood Count 3.47 M/uL (4.20-5.40); White Blood Count 5.52 K/ul (4.8-10.8)
[2023-03-14 07:57] LABS: Calcium 9.8 mg/dl (8.6-10.3); Magnesium 1.9 mg/dl (1.7-2.4); Potassium 4.2 mmol/L (3.5-5.1)
[2023-03-14 08:02] LABS: BUN Creatinine Ratio 21.7 (10-20); Creatinine Clr Calc Pharmacy 23.8 ml/min; Est GFR (African American) 34.2 ml/min; Est GFR (Non-African American) 29.5 ml/min
[2023-03-14] MEDS: IBUPROFEN 600 MG TAB PO SCH ×2 (09:01→21:04)
[2023-03-14] MEDS: oxyCODONE/ACETAMINOPHEN 5mg/325mg TAB PO PRN (13:11)
[2023-03-14] MEDS: DICLOFENAC SOD 1% GEL 100 GM TUBE EXT PRN (14:54)
--- NOTE | 2023-03-14 14:54 | XRay Report ---
XR ribs LT min 2V HISTORY: 84 years-old Female Rib Pain acute chest with left-sided rib pain COMPARISON: CTA chest 03/11/2023 TECHNIQUE: AP view of the chest with 4 views of the left ribs FINDINGS: Cardiomediastinal and hilar silhouettes are unchanged. Median sternotomy. Bilateral shoulder arthropl asties. Sigmoid thoracolumbar scoliosis. Trace left pleural effusion. 1.4 cm subpleural nodular densi ty within the right lower lobe is better seen on the prior chest CT. Degenerative changes of the spin e. IMPRESSION: 1. Cardiomegaly without pulmonary edema. 2. Trace left pleural effusion redemonstrated. 3. No acute displaced rib fracture or pneumothorax. ACT 112: Negative or not required by law. The above report was generated using voice recognition software. It may contain grammatical, syntax o r spelling errors. Electronically signed by: Phil Davis M.D. 03/14/2023 2:53 PM
--- NOTE | 2023-03-14 16:42 | Hospitalist Progress Note ---
Date of Service March 14, 2023 Assessment & Plan (1) Chest pain: Plan: Patient is an 84 yr female past med history significant for hypothyroidism, hyperlipidemia, hypercalcemia, hiatal hernia, chronic diastolic CHF, CKD stage III, CAD s/p CABG, hypertension, chronic atrial fibrillation, mild aortic stenosis, GERD, degenerative disc disease, anxiety, history of gastric ulcer, depression presents with chest pain. Patient was earlier in the ER with chest pain workup was okay and she felt going home and got discharged. After going home the chest pain came back with some shortness of breath palpitations and came back. Currently pain is on left side of chest dull aching. She ambulated to the bathroom okay in ER. Resting she has no shortness of breath. Denies any headache. No blurred visions. No runny nose or sore throat. No cough. Today she could not eat much. Decreased micturition today. Normal bowel movements. No abdominal pain. No nausea. No sweating. No dizziness. Currently resting comfortably and hemodynamically stable. Patient was in the hospital in January with sepsis from pneumonia and acute on chronic diastolic CHF. And also she was recently admitted on February 26 to for rapid A-fib and CHF. Chest pain-likely musculoskeletal --Had workup for similar complaints on prior admissions as well- --CTA:No acute abnormalities and in particular no evidence of aortic dissection or other acute abnormality. Redemonstration of cardiomegaly.Trace left pleural effusion, decreased from prior exam. --Left Rib X ray:Cardiomegaly without pulmonary edema. Trace left pleural effusion redemonstrated. No acute displaced rib fracture or pneumothorax. --Troponin x 3 negative Appreciate cardiology input and recommendation Continue ibuprofen for now Voltaren gel as needed Eliquis on hold while on ibuprofen Continue PT OT Plan to discharge to rehab facility as able History of CAD s/p CABG H/O atrial fibrillation Continue metoprolol, statin On Eliquis for anticoagulation Hypertension Continue Losartan, metoprolol succinate Monitor BP Hypothyroidism Continue levothyroxine CKD III Cr 1.5 today Monitor renal function GERD On Protonix Chronic diastolic CHF Monitor volume status DVT Px: On Eliquis CODE STATUS Full code Disposition Will benefit from rehab placement Case management to help with discharge planning Admission and Anticipated Discharge Date Admission Date: March 13, 2023 Subjective Patient is seen and examined at bedside States feeling tired Reports left-sided intermittent rib pain Denies any dyspnea, dizziness, nausea, vomiting, abdominal pain Review of Systems Review of Systems: All systems reviewed & are unremarkable except as noted in Subjective Physical Exam Physical Exam: Physical Exam: Vitals signs as noted above General Appearance:Moderately built and nourished, no apparent distress, Elderly Head: normocephalic, Atraumatic Eyes: normal inspection, EOMI Neck: supple, Trachea midline Respiratory/Chest: Decreased breath sounds, reproducible mild left-sided chest tenderness, No accessory muscle use Cardiovascular: S1, S2, + murmur Abdomen/GI:Soft, Non tender, Bowel sounds present Extremities/Musculoskeletal:normal inspection, no edema Neurologic/Psych:AAOX3, grossly no focal neurological deficits Skin: normal color, warm Results & Data Results & Data Vital Signs (Past 12 Hours) Vital Signs Temp Pulse Pulse Resp BP Pulse Ox O2 Del Method 03/14/23 15:22 36.3 C L 83 20 144/92 H 97 Room Air 03/14/23 15:15 79 03/14/23 11:12 36.2 C L 90 20 122/71 97 Room Air 03/14/23 08:20 Room Air 03/14/23 08:20 36.8 C 61 20 118/77 96 Room Air 03/14/23 07:16 61 Laboratory Results Short CBC 03/14/23 Range/Units 06:13 WBC 5.52 (4.8-10.8) K/ul Hgb 10.0 L (12.0-16.0) g/dl Hct 31.7 L (37.0-47.0) % Plt Count 206 (130-400) K/uL BMP 03/14/23 06:13 Sodium 140 Potassium 4.2 Chloride 110 H Carbon Dioxide 25 BUN 34 H Creatinine 1.57 H Glucose 91 Calcium 9.8 (1) Chest pain Chest pain type: unspecified Qualified Code(s): R07.9 - Chest pain, unspecified
[2023-03-15 07:17] LABS: BUN Creatinine Ratio 22.9 (10-20); Calcium 10.2 mg/dl (8.6-10.3); Creatinine Clr Calc Pharmacy 25.5 ml/min; Est GFR (Non-African American) 32.8 ml/min; Potassium 4.3 mmol/L (3.5-5.1)
--- NOTE | 2023-03-15 18:55 | Hospitalist Progress Note ---
Date of Service March 15, 2023 Assessment & Plan (1) Chest pain: Plan: Patient is an 84 yr female past med history significant for hypothyroidism, hyperlipidemia, hypercalcemia, hiatal hernia, chronic diastolic CHF, CKD stage III, CAD s/p CABG, hypertension, chronic atrial fibrillation, mild aortic stenosis, GERD, degenerative disc disease, anxiety, history of gastric ulcer, depression presents with chest pain. Patient was earlier in the ER with chest pain workup was okay and she felt going home and got discharged. After going home the chest pain came back with some shortness of breath palpitations and came back. Currently pain is on left side of chest dull aching. She ambulated to the bathroom okay in ER. Resting she has no shortness of breath. Denies any headache. No blurred visions. No runny nose or sore throat. No cough. Today she could not eat much. Decreased micturition today. Normal bowel movements. No abdominal pain. No nausea. No sweating. No dizziness. Currently resting comfortably and hemodynamically stable. Patient was in the hospital in January with sepsis from pneumonia and acute on chronic diastolic CHF. And also she was recently admitted on February 26 to for rapid A-fib and CHF. Chest pain-likely musculoskeletal --Had workup for similar complaints on prior admissions as well- --CTA:No acute abnormalities and in particular no evidence of aortic dissection or other acute abnormality. Redemonstration of cardiomegaly.Trace left pleural effusion, decreased from prior exam. --Left Rib X ray:Cardiomegaly without pulmonary edema. Trace left pleural effusion redemonstrated. No acute displaced rib fracture or pneumothorax. --Troponin x 3 negative Appreciate cardiology input and recommendation Received ibuprofen --not helpful per patient. Voltaren gel as needed Continue PT OT Plan to discharge to rehab facility as able History of CAD s/p CABG H/O atrial fibrillation Continue metoprolol, statin On Eliquis for anticoagulation Hypertension Continue Losartan, metoprolol succinate Monitor BP Hypothyroidism Continue levothyroxine CKD III Cr 1.4 today Monitor renal function GERD On Protonix Chronic diastolic CHF Monitor volume status DVT Px: On Eliquis CODE STATUS Full code Disposition Rehab as able Case management to help with discharge planning Admission and Anticipated Discharge Date Admission Date: March 13, 2023 Subjective Patient is seen and examined at bedside Still has intermittent left-sided rib pain No other complaints Denies any dyspnea, dizziness, nausea, vomiting, abdominal pain States ibuprofen not really helpful Review of Systems 2 Review of Systems: All systems reviewed & are unremarkable except as noted in Subjective Physical Exam Physical Exam: Physical Exam: Vitals signs as noted above General Appearance:Moderately built and nourished, no apparent distress, Elderly Head: normocephalic, Atraumatic Eyes: normal inspection, EOMI Neck: supple, Trachea midline Respiratory/Chest: Decreased breath sounds, reproducible mild left-sided chest tenderness, No accessory muscle use Cardiovascular: S1, S2, + murmur Abdomen/GI:Soft, Non tender, Bowel sounds present Extremities/Musculoskeletal:normal inspection, no edema Neurologic/Psych:AAOX3, grossly no focal neurological deficits Skin: normal color, warm Results & Data Results & Data Vital Signs (Past 12 Hours) Vital Signs Temp Pulse Pulse Resp BP Pulse Ox O2 Del Method 03/15/23 15:44 66 03/15/23 14:57 36.4 C L 66 20 112/71 96 Room Air 03/15/23 08:13 36.8 C 69 20 145/80 H 98 Room Air 03/15/23 08:00 66 Laboratory Results [facility] 03/15/23 06:21 Sodium 140 Potassium 4.3 Chloride 109 H Carbon Dioxide 27 BUN 33 H Creatinine 1.44 H Glucose 82 Calcium 10.2 (1) Chest pain Chest pain type: unspecified Qualified Code(s): R07.9 - Chest pain, unspecified
[2023-03-16 07:26] LABS: Calcium 9.6 mg/dl (8.6-10.3); Creatinine Clr Calc Pharmacy 24.4 ml/min; Est GFR (African American) 36.2 ml/min; Est GFR (Non-African American) 31.2 ml/min; Magnesium 1.9 mg/dl (1.7-2.4); Potassium 4.3 mmol/L (3.5-5.1)
--- NOTE | 2023-03-16 13:15 | Hospitalist Progress Note ---
Date of Service March 16, 2023 Assessment & Plan (1) Chest pain: Plan: Patient is an 84 yr female past med history significant for hypothyroidism, hyperlipidemia, hypercalcemia, hiatal hernia, chronic diastolic CHF, CKD stage III, CAD s/p CABG, hypertension, chronic atrial fibrillation, mild aortic stenosis, GERD, degenerative disc disease, anxiety, history of gastric ulcer, depression presents with chest pain. Patient was earlier in the ER with chest pain workup was okay and she felt going home and got discharged. After going home the chest pain came back with some shortness of breath palpitations and came back. Currently pain is on left side of chest dull aching. She ambulated to the bathroom okay in ER. Resting she has no shortness of breath. Denies any headache. No blurred visions. No runny nose or sore throat. No cough. Today she could not eat much. Decreased micturition today. Normal bowel movements. No abdominal pain. No nausea. No sweating. No dizziness. Currently resting comfortably and hemodynamically stable. Patient was in the hospital in January with sepsis from pneumonia and acute on chronic diastolic CHF. And also she was recently admitted on February 26 to for rapid A-fib and CHF. Chest pain-likely musculoskeletal --Had workup for similar complaints on prior admissions as well- --CTA:No acute abnormalities and in particular no evidence of aortic dissection or other acute abnormality. Redemonstration of cardiomegaly.Trace left pleural effusion, decreased from prior exam. --Left Rib X ray:Cardiomegaly without pulmonary edema. Trace left pleural effusion redemonstrated. No acute displaced rib fracture or pneumothorax. --Troponin x 3 negative Appreciate cardiology input and recommendation Received ibuprofen --not helpful per patient: discontinued Voltaren gel as needed Continue PT OT Plan to discharge to rehab facility today History of CAD s/p CABG H/O atrial fibrillation Continue metoprolol, statin On Eliquis for anticoagulation Hypertension Continue Losartan, metoprolol succinate Monitor BP Hypothyroidism Continue levothyroxine CKD III Cr 1.5 today Monitor renal function GERD On Protonix Chronic diastolic CHF Monitor volume status DVT Px: On Eliquis CODE STATUS Full code Disposition Rehab (2) Precordial chest pain: Admission and Anticipated Discharge Date Admission Date: March 13, 2023 Subjective Patient is seen and examined at bedside No new complaints No chest pain today Denies any dyspnea, dizziness, nausea, vomiting, abdominal pain Plan to be discharged to rehab today Review of Systems Review of Systems: All systems reviewed & are unremarkable except as noted in Subjective Physical Exam Physical Exam: Physical Exam: Vitals signs as noted above General Appearance:Moderately built and nourished, no apparent distress, Elderly Head: normocephalic, Atraumatic Eyes: normal inspection, EOMI Neck: supple, Trachea midline Respiratory/Chest: Decreased breath sounds, reproducible mild left-sided chest tenderness, No accessory muscle use Cardiovascular: S1, S2, + murmur Abdomen/GI:Soft, Non tender, Bowel sounds present Extremities/Musculoskeletal:normal inspection, no edema Neurologic/Psych:AAOX3, grossly no focal neurological deficits Skin: normal color, warm Results & Data Results & Data Vital Signs (Past 12 Hours) Vital Signs Temp Pulse Pulse Resp BP Pulse Ox O2 Del Method 03/16/23 11:00 36.5 C 66 18 107/69 97 Room Air 03/16/23 08:03 63 03/16/23 07:26 36.3 C L 65 18 145/75 H 96 Room Air 03/16/23 03:00 36.4 C L 64 18 124/83 96 Room Air Laboratory Results BMP 03/16/23 05:52 Sodium 139 Potassium 4.3 Chloride 110 H Carbon Dioxide 25 BUN 33 H Creatinine 1.50 H Glucose 87 Calcium 9.6 (1) Chest pain Chest pain type: unspecified Qualified Code(s): R07.9 - Chest pain, unspecified
--- NOTE | 2023-03-16 15:32 | Discharge Summary ---
Date of Service March 16, 2023 Admission HPI Per Admitting Provider 84-year-old female past med history significant for hypothyroidism, hyperlipidemia, hypercalcemia, hiatal hernia, chronic diastolic CHF, CKD stage III, CAD s/p CABG, hypertension, chronic atrial fibrillation, mild aortic stenosis, GERD, degenerative disc disease, anxiety, history of gastric ulcer, depression presents with chest pain. Patient was earlier in the ER with chest pain workup was okay and she felt going home and got discharged from ER. After going home the chest pain came back with some shortness of breath and palpitations and came back to ER Currently pain is on left side of chest dull aching. She ambulated to the bathroom okay in ER. Resting she has no shortness of breath. Denies any headache. No blurred visions. No runny nose or sore throat. No cough. Today she could not eat much. Decreased micturition today. Normal bowel movements. No abdominal pain. No nausea. No sweating. No dizziness. Currently resting comfortably and hemodynamically stable. Patient was in the hospital in January with sepsis from pneumonia and acute on chronic diastolic CHF. And also she was recently admitted on February 26 to for rapid A-fib and CHF. Past medical history. As mentioned above Past surgical history. Abdominal surgery for liposuction. CABG. Colonoscopy. EGD. Repair of retinal tear. Bilateral lasering of cataract. Reconstruction of the left shoulder joint. Reconstruction of the right shoulder joint. Cataracts. Tonsillectomy and adenoidectomy. Total abdominal hysterectomy with removal of tubes. Left total hip replacement. Social history. . No smoking. Alcohol occasional. No drug use. Family history. Father had allergies. Brother had CAD, dementia. Mother had CHF. Sister had CAD. Admission Exam Per Admitting Provider General- Not in distress Head- atraumatic Eyes- PERRL. ENT- oropharynx clear Neck- supple, no JVD. Lungs- clear to auscultation no wheezing or crackles Heart- regular rhythm; no murmur, no gallop. Abdomen- normal bowel sounds, soft, nontender, no distension. Extremities- no pretibial edema, no erythema seen Neuro- alert, oriented x 3; PERRL, no facial palsy; no dysarthria; moves extremities Skin- warm & dry Principal Diagnosis Chest pain Likely musculoskeletal pain Discharge Data Allergies Allergy/AdvReac Type Severity Reaction Status Date / Time nitroglycerin AdvReac Severe "PROJECTILE Verified 01/29/23 15:15 VOMITTING" ergotamine AdvReac Intermediate vomiting Verified 01/29/23 15:15 Consultations 03/11/23 19:51 ED Decision to Admit Stat 03/12/23 08:00 Consult Cardiology Routine Procedures Performed Laboratory Results WBC 5.52 K/ul (4.8-10.8) 03/14/23 06:13 RBC 3.47 M/uL (4.20-5.40) L 03/14/23 06:13 Hgb 10.0 g/dl (12.0-16.0) L 03/14/23 06:13 Hct 31.7 % (37.0-47.0) L 03/14/23 06:13 MCV 91.4 fL (80.0-100.0) 03/14/23 06:13 MCH 28.8 pg (25.0-34.0) 03/14/23 06:13 MCHC 31.5 g/dL (32.0-36.0) L 03/14/23 06:13 RDW Std Deviation 49.1 fL (36.4-46.3) H 03/14/23 06:13 RDW Coeff of Howie 14.8 % (11.5-14.5) H 03/14/23 06:13 Plt Count 206 K/uL (130-400) 03/14/23 06:13 MPV 10.1 fL (9.4-12.4) 03/14/23 06:13 Immature Gran % (Auto) 0.2 % 03/14/23 06:13 Neut % (Auto) 39.3 % 03/14/23 06:13 Lymph % (Auto) 42.6 % 03/14/23 06:13 Stevens % (Auto) 12.0 % 03/14/23 06:13 Eos % (Auto) 5.4 % 03/14/23 06:13 Baso % (Auto) 0.5 % 03/14/23 06:13 Neut # (Auto) 2.17 K/uL (1.40-6.50) 03/14/23 06:13 Lymph # (Auto) 2.35 K/uL (1.20-3.40) 03/14/23 06:13 Stevens # (Auto) 0.66 K/uL (0.11-0.59) H 03/14/23 06:13 Eos # (Auto) 0.30 K/uL (0.00-0.50) 03/14/23 06:13 Baso # (Auto) 0.03 K/uL (0.00-0.20) 03/14/23 06:13 Immature Gran # (Auto) 0.01 K/uL (0.01-0.20) 03/14/23 06:13 PT 12.1 Seconds (9.0-12.0) H 03/11/23 18:06 INR 1.1 (0.9-1.1) 03/11/23 18:06 APTT 25 Seconds (21-31) 03/11/23 18:06 PTT Ratio 0.9 03/11/23 18:06 Sodium 139 mmol/L (136-145) 03/16/23 05:52 Potassium 4.3 mmol/L (3.5-5.1) 03/16/23 05:52 Chloride 110 mmol/L (98-107) H 03/16/23 05:52 Carbon Dioxide 25 mmol/L (21-32) 03/16/23 05:52 Anion Gap 4 (3-11) 03/16/23 05:52 BUN 33 mg/dl (6-23) H 03/16/23 05:52 Creatinine 1.50 mg/dl (0.6-1.2) H 03/16/23 05:52 Est Cr Clr Drug Dosing 24.4 ml/min 03/16/23 05:52 Est GFR ( Amer) 36.2 ml/min 03/16/23 05:52 Est GFR (Non-Af Amer) 31.2 ml/min 03/16/23 05:52 BUN/Creatinine Ratio 22.0 (10-20) H 03/16/23 05:52 Glucose 87 mg/dl (70-99(Fasting)) 03/16/23 05:52 Calcium 9.6 mg/dl (8.6-10.3) 03/16/23 05:52 Magnesium 1.9 mg/dl (1.7-2.4) 03/16/23 05:52 Troponin I High Sens 11.1 pg/ml (0-14) 03/12/23 17:15 Impressions Chest X-Ray 03/11/23 18:05 XR chest 1V portable CLINICAL HISTORY: cp TECHNIQUE: Single frontal radiograph of the chest was obtained. Comparison: Comparison is made to chest radiograph 03/11/2023 FINDINGS: Bilateral reverse shoulder arthroplasties are seen. Median sternotomy wires are seen. Calcified aortic knob is seen. The lungs are clear. No evidence of pleural effusion or pneumothorax. IMPRESSION: No acute chest disease. ACT 112: Negative or not required by law. Electronically signed by: Heath Rockwell M.D. 03/11/2023 6:33 PM Chest CTA 03/11/23 18:21 CT angio chest wo/w con CLINICAL HISTORY: murmur, pain TECHNIQUE: Multidetector row helical CT of the chest was performed with angiographic protocol. Coronal and sagittal reformations were obtained. Coronal and sagittal MIPS were obtained from the axial data set and were submitted for review. Automated dose lowering techniques and/or adjustment according to patient size were utilized for this exam. CT DOSE: 972.73 mGy.cm Comparison: Comparison is made to CT chest 12/01/2021 FINDINGS: Lungs and pleura: There is a trace left pleural effusion and bibasilar atelectasis. There is a 3 mm nodule right middle lobe (series 7 image 155). Previously noted peripheral right lower lobe density is unchanged. This likely represents scarring. Heart and pericardium: Cardiomegaly is seen with biatrial enlargement. Vessels: No evidence of pulmonary embolism or aortic dissection. The origin of the major vessels is unremarkable. Moderate atherosclerotic disease is seen in the coronary arteries. Mediastinum and caryn: Unremarkable. Chest wall and lower neck: Unremarkable. Abdomen: A moderate hiatal hernia is seen. Bones: Degenerative changes in the thoracic spine. Reversed bilateral shoulder arthroplasties are seen. Old rib fractures are seen on the right. IMPRESSION: 1. No acute abnormalities and in particular no evidence of aortic dissection or other acute abnormality. 2. Redemonstration of cardiomegaly. 3. Trace left pleural effusion, decreased from prior exam. ACT 112: Negative or not required by law. Electronically signed by: Heath Rockwell M.D. 03/11/2023 7:41 PM Ribs w/Chest X-Ray 03/14/23 12:02 XR ribs LT min 2V HISTORY: 84 years-old Female Rib Pain acute chest with left-sided rib pain COMPARISON: CTA chest 03/11/2023 TECHNIQUE: AP view of the chest with 4 views of the left ribs FINDINGS: Cardiomediastinal and hilar silhouettes are unchanged. Median sternotomy. Bilateral shoulder arthroplasties. Sigmoid thoracolumbar scoliosis. Trace left pleural effusion. 1.4 cm subpleural nodular density within the right lower lobe is better seen on the prior chest CT. Degenerative changes of the spine. IMPRESSION: 1. Cardiomegaly without pulmonary edema. 2. Trace left pleural effusion redemonstrated. 3. No acute displaced rib fracture or pneumothorax. ACT 112: Negative or not required by law. The above report was generated using voice recognition software. It may contain grammatical, syntax or spelling errors. Electronically signed by: Phil Davis M.D. 03/14/2023 2:53 PM Ordered Studies 03/11/23 18:21 CT angio chest wo/w con Stat Hospital Course (1) Chest pain: Patient is an 84 yr female past med history significant for hypothyroidism, hyperlipidemia, hypercalcemia, hiatal hernia, chronic diastolic CHF, CKD stage III, CAD s/p CABG, hypertension, chronic atrial fibrillation, mild aortic stenosis, GERD, degenerative disc disease, anxiety, history of gastric ulcer, depression presents with chest pain. Patient was earlier in the ER with chest pain workup was okay and she felt going home and got discharged. After going home the chest pain came back with some shortness of breath palpitations and came back. Currently pain is on left side of chest dull aching. She ambulated to the bathroom okay in ER. Resting she has no shortness of breath. Denies any headache. No blurred visions. No runny nose or sore throat. No cough. Today she could not eat much. Decreased micturition today. Normal bowel movements. No abdominal pain. No nausea. No sweating. No dizziness. Currently resting comfortably and hemodynamically stable. Patient was in the hospital in January with sepsis from pneumonia and acute on chronic diastolic CHF. And also she was recently admitted on February 26 to for rapid A-fib and CHF. Chest pain-likely musculoskeletal --Had workup for similar complaints on prior admissions as well- --CTA:No acute abnormalities and in particular no evidence of aortic dissection or other acute abnormality. Redemonstration of cardiomegaly.Trace left pleural effusion, decreased from prior exam. --Left Rib X ray:Cardiomegaly without pulmonary edema. Trace left pleural effusion redemonstrated. No acute displaced rib fracture or pneumothorax. --Troponin x 3 negative Appreciate cardiology input and recommendation Received ibuprofen --not helpful per patient: discontinued Voltaren gel as needed Continue PT OT Plan to discharge to rehab facility today History of CAD s/p CABG H/O atrial fibrillation Continue metoprolol, statin On Eliquis for anticoagulation Hypertension Continue Losartan, metoprolol succinate Monitor BP Hypothyroidism Continue levothyroxine CKD III Cr 1.5 today Monitor renal function GERD On Protonix Chronic diastolic CHF Monitor volume status DVT Px: On Eliquis CODE STATUS Full code Disposition Rehab (2) Precordial chest pain: Total Time Total Time Spent Total Time Spent (In Minutes): 55 minutes Discharge Plan Discharge Items Patient Disposition: Transfer Long-Term Fac Reason For Visit: CHEST PAIN Discharge Diagnosis: Chest pain Likely musculoskeletal pain Condition on Discharge: Fair Activity: Per Instructions section Exercise/Sports: Gradually increase as tolerated Non-emergency contact: Primary Care Provider Call non-emergency contact if: you have any medication questions, your symptoms worsen, your pain is concerning for you and you have a fever Follow-up/Referrals: PCP,NO [Primary Care Provider] - Diet: Heart Healthy Addtl Attending Provider Instructions: Follow-up with your primary care physician in 1 week upon discharge from rehab facility Follow-up with your geographic information system surveyor Dr. Adams in 3 to 4 weeks as outpatient Seek immediate medical attention if your symptoms reoccur or worsen Please take all medications as instructed on discharge list below. Please call if you have any questions or problems. You can reach a [facility] hospitalist on duty at [facility] 24 hours a day by calling [phone] Pending Studies at Discharge: No Stand-Alone Forms: My [facility] Skilled Items Patient informed of condition?: Yes DNR: No Discharge Level of Care: Skilled Communicable Disease: No Discharge Prognosis: Stable Lines: None Urinary Catheter: No Medications and DC Order Prescriptions: New diclofenac sodium [Voltaren Arthritis Pain] 1 % Gel 2 g EXT BID PRN (Reason: pain) 10 Days Qty: 100 0RF oxycodone-acetaminophen [Percocet] 5-325 mg Tablet 1 tab PO Q8H PRN (Reason: pain) Qty: 10 0RF Continued zolpidem 5 mg tablet 5 mg PO HS PRN (Reason: Sleep) Qty: 30 5RF rosuvastatin [Crestor] 10 mg tablet 10 mg PO HS buspirone 10 mg tablet 10 mg PO BID Qty: 60 5RF levothyroxine [Levoxyl] 100 mcg Tablet 100 mcg PO DAILYBB pantoprazole [Protonix] 40 mg Tablet,Delayed Release (Dr/Ec) 40 mg PO [facility] metoprolol succinate 50 mg Tablet Extended Release 24 Hr 50 mg PO QAM Qty: 30 0RF calcitriol 0.25 mcg Capsule 0.25 mcg PO MoWeFr@0900 Qty: 30 0RF ondansetron 4 mg tablet,disintegrating 4 mg PO Q6 PRN (Reason: Nausea) Eliquis 5 mg tablet 5 mg PO [facility] losartan 25 mg Tablet 25 mg PO QAM Qty: 30 1RF hydroxyzine HCl 10 mg Tablet 10 mg PO DAILY PRN (Reason: anxiety) Qty: 10 0RF gabapentin 300 mg capsule 300 mg PO TID loperamide 2 mg Tablet 2 mg PO QID PRN (Reason: Diarrhea) benzonatate 100 mg capsule 100 mg PO TID PRN (Reason: Cough) trazodone 150 mg tablet 150 mg PO HS Discharge Orders: Discharge Order (Routine); Ordered 03/16/23 Ordered By: Lalo Conte Admission Data Admit Date/Time: 03/13/23 15:53 Attending Provider: Lalo Conte Admit Provider: uBtch Johnson Primary Care Provider: PCP,NO Other Providers: Butch Johnson; Noah Adams; [place]; [facility] Other Interventions: Discharge Summary Assessment (RN) Last Done: 03/16/23 13:42
== END 2023-03-16 15:11 | DRG 313 ==
LOC: EDINP 17:34 → ED 17:34 → SUATTDRO 21:08 → 2N 21:54 → SUATTDRO 03-13 15:53

== ENCOUNTER 2023-11-03 17:28 | Inpatient (IN) ==
--- OUTSIDE RECORDS SUMMARY | 2023-11-03 17:36 | External Medical Summary | Summary of Care ---
Author Name Unknown Organization [facility] Address [address] [facility] [address] Phone [phone] Care Team Providers Care Patient Account Liaison Name Role Phone Gilbert Calloway MD Primary Care Provide r Encounter Details Date Type Department Care Team (Late st Contact Info) Description 10/22/2023 Orders Only PATIENT PORTAL DO NOT DELETE THIS DEPT USED BY [place] [place] [id number] Allergies Active Allergy Reactions Criticality Noted Date Comments Ergotamine 03/01/2000 vomit Nitroglycerin 03/14/2007 vomitting documented as of this encounter (statuses as of 10/22/2023) Medications Medication Sig Dispensed Refills Start Date End Date Status Benzonatate 100 MG Oral Capsule (Tessalon Perles)Indications:V iral URI with cough Take 1 Capsule by mouth 3 times a day as needed for Cough. 30 Capsule 1 01/15/2023 Active Acetaminophen 500 MG Oral Tablet (Tylenol)Indications :Generalized osteoarthritis Take 1 Tablet by mouth in the morning and 1 Tablet at noon and 1 Tablet before bedtime. 100 Tablet 04/09/2023 Active Metoprolol Succinate ER 50 MG Oral Tablet Extended Release 24 Hour (toPROL XL) TAKE ONE TABLET BY MOUTH IN THE MORNING 90 Tablet 1 06/26/2023 Active Gabapentin 300 MG Oral Capsule (Neurontin)Indicatio ns:DDD (degenerative disc disease), lumbar take 1 capsule three times daily 90 Capsule 5 07/26/2023 Active Additional Information Patient taking differently: 300 mg Oral Once, Reported on 10/12/2023 Torsemide 20 MG Oral Tablet (Demadex) Take 1 Tablet by mouth daily as needed (swelling, wt gain>2 lbs). 30 Tablet 08/02/2023 Active Ondansetron HCl 4 MG Oral Tablet (Zofran)Indications: Nausea TAKE ONE TABLET BY MOUTH EVERY 6 HOURS NEEDED FOR NAUSEA 30 Tablet 1 08/07/2023 Active Calcitriol 0.25 MCG Oral Capsule (Rocaltrol) TAKE 1 CAPSULE ON MONDAYS, WEDNESDAYS, AND FRIDAYS 45 Capsule 1 08/24/2023 Active busPIRone HCl 10 MG Oral Tablet (Buspar)Indications: Anxiety state TAKE ONE TABLET BY MOUTH TWICE DAILY 60 Tablet 5 08/24/2023 Active Loperamide HCl 2 MG Oral Capsule (Imodium)Indications :Chronic diarrhea TAKE ONE CAPSULE BY MOUTH FOUR TIMES DAILY NEEDED 60 Capsule 1 08/27/2023 Active Eliquis 5 MG Oral Tablet (Apixaban) TAKE ONE TABLET BY MOUTH TWICE DAILY 180 Tablet 3 08/27/2023 Active hydrOXYzine HCl 10 MG Oral Tablet (Atarax) Take 1 Tablet by mouth every 8 hours as needed for Anxiety. 30 Tablet 1 09/14/2023 Active Losartan Potassium 25 MG Oral Tablet (Cozaar)Indications: Hypertensive heart and kidney disease with chronic diastolic congestive heart failure and stage 3b chronic kidney disease (HCC) TAKE ONE TABLET BY MOUTH IN THE MORNING 90 Tablet 1 09/20/2023 Active traZODone HCl 150 MG Oral Tablet (Desyrel)Indications :Persistent insomnia Take 1 Tablet by mouth at bedtime. 90 Tablet 1 10/12/2023 Active Levothyroxine Sodium 100 MCG Oral Tablet (Levoxyl) TAKE ONE TABLET IN THE MORNING 90 Tablet 10/19/2023 Active Pantoprazole Sodium 40 MG Oral Tablet Delayed Release (Protonix)Indication s:Gastric ulcer without hemorrhage or perforation, unspecified chronicity,Gastroeso phageal reflux disease with esophagitis without hemorrhage TAKE ONE TABLET TWICE DAILY 180 Tablet 2 10/18/2023 Active Rosuvastatin Calcium 10 MG Oral Tablet (Crestor)Indications :Dyslipidemia, goal LDL below 100 TAKE ONE TABLET AT BEDTIME 90 Tablet 2 10/18/2023 Active documented as of this encounter (statuses as of 10/22/2023) Active Problems Problem Noted Date Diagnosed Date Stage 3a chronic kidney disease 10/12/2023 Major depressive disorder wi th single episode, in partial remission 10/12/2023 Hypercalcemia 12/15/2022 Last Assessment & Plan: No longer on supplementation. Follow up with nephrology (HFpEF) heart failure with preserved ejection fr action 12/07/2022 Overview: Ca 11.6 Hiatal hernia 12/07/2022 Overview: moderate Hypertensive heart and kidne y disease with [...] discuss her pain concerns. She is aware [facility] does not manage chronic pain meds. [...] back pain radiating to left leg 03/19/2012 ADVANCE DIRECTIVE INFORMATION 07/13/2004 Overview: No, Advance Directive brochure given to patient. 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 Last Assessment & Plan: Stable no angina -continue rosuvastatin, metopropolol, Primary hypertension Gastroesophageal reflux dise ase with esophagitis without hemorrhage Last Assessment & Plan: symptoms controlled on pantoprazole Scoliosis of lumbar spine Mixed incontinence urge and stress (male)(female ) documented as of this encounter (statuses as of 10/22/2023) Resolved Problems Problem Noted Date Diagnosed Date Resolved Date Anxiety state 10/12/2023 10/12/2023 Last Assessment & Plan: Stable on buspar, Meningioma, cerebral 07/16/2022 023 Overview: small frontal cortex meningioma without mass effect Current moderate episode of major depressive disorder without prior episode 04/07/2022 Migraine without aura and wi thout status [...] 30-59 ml/min 07/03/2013 05/07/2014 Overview: GFR 36.9 Dyslipidemia, goal LDL below 100 01/28/2009 10/12/2023 Overview: Per Lipid Taxonomy. Last Assessment & Plan: Due for updated labs. Continue rosuvastatin Kidney disease, chronic, sta ge III (GFR [...] as of this encounter (statuses as of 10/22/2023) Immunizations Name Administration Dates Next Due COVID-19 [...] lent, No Preserve, IM 10/27/2016,11/03/2015,11/19/2014 Seasonal Influenza, Trivalen t, (IIV3), with Preserv, (Fluzone) 11/04/2013,11/22/2012,01/09/2011(Defer red: Patient Refused),12/01/2005 Seasonal Influenza, Trivalen t, Adjuvanted, 65+ YRS, PF, (Fluad) 12/06/2019 Zoster Vaccine Recombinant (Shingrix) 12/04/2019 documented as of this encounter Social History Tobacco Use Types Packs/Day Years Used Date Smoking Tobacco: Never Smokeless Tobacco: Never Alcohol Use Standard Drinks/Week Comments Yes 0 (1 standard drink = 0.6 oz pur e alcohol) OCC-- 2oz per week PHQ-2 Answer Date Recorded PHQ-2 Score -1 11/09/2019 Hunger Vital Sign Answer Date Recorded Within the past 12 months, y ou worried that your food would run out before you got the money to buy more. Never true 03/07/19 24 Within the past 12 months, t he food you bought just didn't last and you didn't have money to get more. Never true 03/07/2023 Childcare Answer Date Recorded Do you feel overwhelmed with taking care of a child, family member or friend? No 03/07/2023 Does your family need help f inding childcare? (Household - for ages 0-17 years) Not on file 03/07/2023 Clothing Answer Date Recorded Have you been unable to get clothing when it was really needed? No 03/07/2023 Is your family able to get c lothes or diapers when needed? (Household - for ages 0-17 years) Not on file 03/07/2023 Personal Safety Answer Date Recorded Do you feel unsafe or have concerns for your saf ety? No 03/07/2023 Do you have concerns for you r family's safety? (Household - for ages 0-17 years) Not on file 03/07/2023 Utilities Answer Date Recorded Do you have trouble paying y our heating, water, or electric bill? No 03/07/2023 Is your family able to pay t he heat, water, or electric bill? (Household - for ages 0-17 years) Not on file 03/07/2023 Does your family have access to good internet? (Household - for ages 0-17 years) Not on file 03/07/2023 Employment Status Answer Date Recorded Are you unemployed or without regular income? No 03/07/2023 Does the household have a re gular source of income? (Household - for ages 0-17 years) Not on file 03/07/2023 Social Connections Answer Date Recorded How often do you feel lonely or isolated from th ose around you? Never 03/07/2023 Financial Resource Strain Answer Date R ecorded Do you have any trouble payi ng for your medications, or do you think you might in the future? No 03/07/2023 Does your family have troubl e paying for medicine? (Household - for ages 0-17 years) Not on file 03/07/2023 Transportation Needs Answer Date Record ed READ ONLY Do you have troubl e getting a ride to medical visits or work? Never True 03/07/2023 Does your family have a hard time getting a ride to doctors visits? (Household - for ages 0-17 years) Not on file 03/07/2023 Has lack of transportation k ept you from medical appointments, meetings, work, or from getting things needed for daily living? Check all that apply. (Adult - for ages 18 years and over) Not on file 03/07/2023 Do you (or your family) have trouble finding or paying for a ride (transportation)? (Household - for ages 0-17 years) Not on file 03/07/2023 Housing Stability Answer Date Recorded Do you currently live in a s helter or have no steady place to sleep at night? No 03/07/2023 READ ONLY Do you think you a re at risk of becoming homeless? No 03/07/2023 Does your family worry about paying for your home or becoming homeless? (Household - for ages 0-17 years) Not on file 0 03/07/2023 Are you homeless or worried that you might be in the future? (Adult - for ages 18 years and over) Not on file Are you (or your family) earnest eless or worried that you might be in the future? (Household - for ages 0-17 years) Not on file Food Insecurity Answer Date Recorded Do you need food for this week? Yes 03/07/2023 Are you able to get enough f ood for your family? (Household - for ages 0-17 years) Not on file 03/07/2023 Does your family need food t his week? (Household - for ages 0-17 years) Not on file 03/07/2023 Do you always have enough fo od for your family? (Household - for ages 0-17 years) Not on file 03/07/2023 Sex and Gender Information Value Date Recorded Sex Assigned at Female 12/11/2022 6:31 PM EDT Gender Identity Female 12/11/2022 6:31 PM EDT Sexual Orientation Straight 05/16/2023 10 :36 AM EDT Job Start Date Occupation Industry Not on file Not on file Not on file documented as of this encounter Plan of Treatment Upcoming Encounters Date Type Department Care Team (Late st Contact Info) Description 10/26/2023 10:00 AM EDT Home Visit [facility] [address] [facility] [place] [address] Lana Lieberman RN [address] [facility] [place] [address] 04/04/2024 2:40 PM EST Office Visit Nephrology, [facility] [address] [facility] [place] [address] Tirso Shah MD [address] [facility] [place] [address] 06/30/2024 10:00 AM EDT Office Visit Family Medicine [address] [place] [phone] Gilbert Calloway MD [address] [place] [address] [place] [address] Health Maintenance Due Date Last Done Comments DTap/Tdap Vaccines (1 - Tdap) 11/15/1957 Adult Wellness Visit 2002 Depression Monitoring 09/29/2020 09/30/2019 Albumin/Creatinine Ratio 07/28/2023 023, 06/09/2020, 03/13/2019, Additional history exists TSH 07/28/2023 07/27/2022, 05/21, 06/09/2020, Additional history exists CKD PHOS USE SMARTSET 28780 10/05/202309/19, 06/08/2021, 09/07/2020, Additional history exists COVID-19 Vaccine ( season) 2023 01/04/2021, 04/19/2020, 04/04/2020, Additional history exists Influenza Vaccine (FLU shot) (#1) 2023 01/10/2022, 11/18/2020, 12/06/2019, Additional history exists CKD HGB USE SMARTSET 52893 03/06/202403/06, 03/06/2023, 10/04/2022, Additional history exists Pneumococcal Vaccine: 65+ Years Completed 08/26/2014, 10/26/2005 Zoster Vaccines Completed 11/23/2020, 12/04/2019 HPV (Gardasil) Vaccine Aged Out No lo nger eligible based on patient's age to complete this topic Hepatitis B Vaccine Aged Out No longe r eligible based on patient's age to complete this topic MENINGOCOCCAL (MENACTRA/MENVEO) Aged Out No longer eligible based on patient's age to complete this topic documented as of this encounter Medical Devices Not on filedocumented as of this encounter Care Teams Patient Account Liaison Relationship Specialty Start Date End Date Gilbert Calloway MD [address] [place] [address] [place] [id number] PCP - General Family Medicine 07/30/23 documented as of this encounter
--- OUTSIDE RECORDS SUMMARY | 2023-11-03 17:36 | External Medical Summary ---
Author Name Unknown Address Unknown Organization : Laboratory Report Ordering Provider Test Date Status GLEN JOLLEY 10/12/2023 11:18:04 Ramila radha Observation Date Value Abnormality Reference (Units ) Status Glucose Point of Care 10/12/2023 11:18:04 88 70-120 (mg/dL) Final Performing Location
--- OUTSIDE RECORDS SUMMARY | 2023-11-03 17:36 | External Medical Summary | Summary of Care ---
Author Name Unknown Organization [facility] Address [address] [place] [address] Phone [phone] Care Team Providers Care Armature Bander Name Role Phone Gilbert Calloway MD Primary Care Provide r Reason for Visit * Reason Comments [facility]: Maintenance Encounter Details Date Type Department Care Team (Late st Contact Info) Description 09/25/2023 8:30 AM EDT [facility], [facility] [address] [facility] [place] [address] Lana Lieberman, RN [address] [place] [address] Allergies Active Allergy Reactions Criticality Noted Date Comments Ergotamine 03/01/2000 vomit Nitroglycerin 03/14/2007 vomitting documented as of this encounter (statuses as of 09/26/2023) Medications Medication Sig Dispensed Refills Start Date End Date Status Levothyroxine Sodium 100 MCG Oral Tablet (Levoxyl) Take 1 Tablet by mouth in the morning. (at least 30 min prior to breakfast or other meds). 90 Tablet 3 11/20/2022 Active Benzonatate 100 MG Oral Capsule (Tessalon Perles)Indications:Vi ral URI with cough Take 1 Capsule by mouth 3 times a day as needed for Cough. 30 Capsule 1 01/15/2023 Active Acetaminophen 500 MG Oral Tablet (Tylenol)Indications: Generalized osteoarthritis Take 1 Tablet by mouth in the morning and 1 Tablet at noon and 1 Tablet before bedtime. 100 Tablet 04/09/2023 Active Pantoprazole Sodium 40 MG Oral Tablet Delayed Release (Protonix)Indications :Gastric ulcer without hemorrhage or perforation, unspecified chronicity,Gastroesop hageal reflux disease with esophagitis without hemorrhage TAKE ONE TABLET TWICE DAILY 180 Tablet 1 05/03/2023 Active Rosuvastatin Calcium 10 MG Oral Tablet (Crestor)Indications: Dyslipidemia, goal LDL below 100 TAKE ONE TABLET BY MOUTH AT BEDTIME 90 Tablet 05/03/2023 Active Metoprolol Succinate ER 50 MG Oral Tablet Extended Release 24 Hour (toPROL XL) TAKE ONE TABLET BY MOUTH IN THE MORNING 90 Tablet 06/26/2023 Active Meloxicam 7.5 MG Oral Tablet (Mobic)Indications:Bi lateral shoulder region arthritis Take 1 Tablet by mouth in the morning. for pain.. 30 Tablet 07/20/2023 Active Gabapentin 300 MG Oral Capsule (Neurontin)Indication s:DDD (degenerative disc disease), lumbar take 1 capsule three times daily 90 Capsule 07/26/2023 Active traZODone HCl 150 MG Oral Tablet (Desyrel)Indications: Persistent insomnia One at bedtime 30 Tablet 07/30/2023 Active Torsemide 20 MG Oral Tablet (Demadex) Take 1 Tablet by mouth daily as needed (swelling, wt gain>2 lbs). 30 Tablet 08/02/2023 Active Ondansetron HCl 4 MG Oral Tablet (Zofran)Indications:N ausea TAKE ONE TABLET BY MOUTH EVERY 6 HOURS NEEDED FOR NAUSEA 30 Tablet 08/07/2023 Active Calcitriol 0.25 MCG Oral Capsule (Rocaltrol) TAKE 1 CAPSULE ON MONDAYS, WEDNESDAYS, AND FRIDAYS 45 Capsule 08/24/2023 Active busPIRone HCl 10 MG Oral Tablet (Buspar)Indications:A nxiety state TAKE ONE TABLET BY MOUTH TWICE DAILY 60 Tablet 08/24/2023 Active Loperamide HCl 2 MG Oral Capsule (Imodium)Indications: Chronic diarrhea TAKE ONE CAPSULE BY MOUTH FOUR TIMES DAILY NEEDED 60 Capsule 08/27/2023 Active Eliquis 5 MG Oral Tablet (Apixaban) TAKE ONE TABLET BY MOUTH TWICE DAILY 180 Tablet 3 08/27/2023 Active hydrOXYzine HCl 10 MG Oral Tablet (Atarax) Take 1 Tablet by mouth every 8 hours as needed for Anxiety. 30 Tablet 1 09/14/2023 Active Losartan Potassium 25 MG Oral Tablet (Cozaar)Indications:H ypertensive heart and kidney disease with chronic diastolic congestive heart failure and stage 3b chronic kidney disease (HCC) TAKE ONE TABLET BY MOUTH IN THE MORNING 90 Tablet 1 09/20/2023 Active documented as of this encounter (statuses as of 09/26/2023) Active Problems Problem Noted Date Diagnosed Date [...] discuss her pain concerns. She is aware [facility] does not manage chronic pain meds. With her history of confusion, would recommend against use of narcotic medication. Mild aortic stenosis 07/27/2021 Last Assessment & Plan: Following with cardiology Aortocoronary bypass status 03/09/2021 Chronic atrial fibrillation 03/01/2021 Overview: new onset, [facility] on apixaban Last Assessment & Plan: 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[place] co ronary artery of [place] heart without angina pectoris Last Assessment & Plan: Stable no angina -continue rosuvastatin, metopropolol, Anxiety state Last Assessment & Plan: Stable on buspar, Primary hypertension Gastroesophageal reflux dise ase with esophagitis without hemorrhage Last Assessment & Plan: symptoms controlled on pantoprazole Scoliosis of lumbar spine Mixed incontinence urge and stress (male)(female ) documented as of this encounter (statuses as of 09/26/2023) Resolved Problems Problem Noted Date Diagnosed Date [...] Overview: hgb 7.4 admitted [facility] CKD (chronic kidney disease) stage 3, [...] as of this encounter (statuses as of 09/26/2023) Immunizations Name Administration Dates Next Due COVID-19 [...] No 03/07/2023 Does the household have a [facility] cancer centerlar source of income? (Household - for ages [...] Sign Reading Time Taken Comments Blood Pressure 148/68 09/25/2023 11:55 AM EDT Pulse 68 09/25/2023 11:55 AM EDT Temperature 36 C (96.8 F) 09/25/2023 11:55 AM EDT Respiratory Rate 18 09/25/2023 11:55 AM EDT Oxygen Saturation 93% 09/25/2023 11:55 AM EDT Inhaled Oxygen Concentration - - Weight - - Height - - Body Mass Index - - documented in this encounter Progress Notes * Lana Lieberman RN - 09/25/2023 11:43 AM EDT Images from the original note were not included. [facility] [employer] Visit Date: 09/25/2023 Time: 11:43 AM Name: Zoya Howard : 1938 Current Concerns: Patient seen for follow up- Medical hx includes: Anxiety, Afib, CHF, HTN, CKD Difficulty getting into building. Patient does not answer and is unable to walk to lobby to open door. Reports having nausea over the weekend. Feels as though she had food poisoning. Last vomited Sunday. Denies diarrhea.Tolerating food and liquids . Tea and toast this am. Discussion regarding [facility]- as she states it's so hard to get up and make my own food. Has not been out grocery shopping. States, " I will know when I need to go to the [facility]," Taking medications per report. Pill packs- has not taken all of meds since 09/19. Encouraged to take medications as prescribed- patient became irritable and insists that this nurse was lying. Took am meds during visit. VS wnl Lungs clear bilaterally Sob with exertion No LE edema noted Weights stable- see below. Voiding without difficulty Bowels wnl- per report Appetite fair Taking fluids. Patient made aware of next PCP appointment. Aware of dated and time. States she will be there. Problems/Symptoms: Review of Systems Constitutional: Negative. HENT: Negative. Respiratory: Positive for shortness of breath. Cardiovascular: Negative. Gastrointestinal: Negative. Genitourinary: Negative. Musculoskeletal: Positive for gait problem. Skin: Negative. Hematological: Negative. Psychiatric/Behavioral: Negative. Physical Exam: BP 148/68 (BP Site: Right Arm, BP Position: Sitting, BP Cuff Size: Regular) | Pulse 68 | Temp 36 C (96.8 F) (Tympanic) | Resp 18 | SpO2 93% Pain 0 Physical Exam Constitutional: Appearance: Normal [...] and Affect: Mood normal. Behavior: Behavior normal. [facility] Completed this Visit: No. No falls since last visit Treatment/Plan: Zofran refill to [facility] Continue medications as prescribed Keep all upcoming MD appointments Fall precautions [facility] scale- weigh daily Low na diet Elevate ble prn edema RN CM follow up in 4 weeks. Home Interventions Provided: Reinforced current Plan of Care, including self-management and medication regimen Patient's Goals of Care: Stay out of the hospital Stay current with medication regimen every single day Get out and drive my car Patient's 'Red Flags': N/V not relieved by Zofran Weight increase 2-3 lbs/24 hours SOB above baseline Patient Needs to Remember: Call [facility] at with any new or worsening health concerns or problems, red flag symptoms. Referrals Needed: N/a Follow Up: Is there cellular connectivity/connectivity in the home? Yes Does the patient have internet in the home? No Patient encouraged to call the intake phone number for all urgent but not emergent issues. Scheduled to follow up with patient in 4 weeks. Lana Schuler RN 09/25/2023 11:43 AM documented in this encounter Plan of Treatment Upcoming Encounters Date Type Department Care Team (Late st Contact Info) Description 10/12/2023 10:40 AM EDT Office Visit Family Medicine [address] [phone] Gilbert Calloway MD [address] [place] [address] [place] [address] 10/26/2023 10:00 AM EDT Home Visit [facility] [address] [facility] [place] [address] Lana Lieberman RN [address] [facility] [place] [address] 04/04/2024 2:40 PM EST Office Visit [facility] [address] [place] [address] Tirso Shah MD [address] [facility] [place] [address] Health Maintenance Due Date Last Done Comments DTaP,Tdap,and Td Vaccines (1 - Tdap) 11/15/1957 Adult Wellness Visit 2002 Depression Monitoring 09/29/2020 09/30/2019 COVID-19 Vaccine (5 - 3-24 season) 2022 04/19/2020, 04/04/2020, 03/22/2020, Additional history exists Albumin/Creatinine Ratio 07/28/2023 023, 06/09/2020, 03/13/2019, Additional history exists TSH 07/28/2023 07/27/2022, 05/21, 06/09/2020, Additional history exists CKD PHOS USE SMARTSET 07668 10/05/202309/19, 06/08/2021, 09/07/2020, Additional history exists Influenza Vaccine (FLU shot) (#1) 2023 01/10/2022, 11/18/2020, 12/06/2019, Additional history exists CKD HGB USE SMARTSET 02179 03/06/202403/06, 03/06/2023, 10/04/2022, Additional history exists Pneumococcal [...] filedocumented as of this encounter Care Teams Armature Bander Relationship Specialty Start Date End Date Gilbert Calloway MD [address] [place] [address] [place] [phone] PCP - General Family Medicine 07/30/23 documented as of this encounter
--- OUTSIDE RECORDS SUMMARY | 2023-11-03 17:36 | External Medical Summary | Summary of Care ---
Author Name Unknown Organization [facility] Address [address] [place] [address] Phone [phone] Care Team Providers Care Educational Assistant Teacher Name Role Phone Gilbert Calloway MD Primary Care Provide r Reason for Visit * Reason Comments eRx-Medication Refill Encounter Details Date Type Department Care Team (Late st Contact Info) Description 10/16/2023 Refill Family Medicine [address] [place] [phone] Gilbert Calloway MD [address] [place] [address] [place] [phone] Encounter for long-term (current) use of medications*; Gastric ulcer without hemorrhage or perforation, unspecified chronicity; Gastroesophageal reflux disease with esophagitis without hemorrhage; Dyslipidemia, goal LDL below 100 Allergies Active Allergy Reactions Criticality Noted Date Comments Ergotamine 03/01/2000 vomit Nitroglycerin 03/14/2007 vomitting documented as of this encounter (statuses as of 10/18/2023) Medications Medication Sig Dispensed Refills Start Date End Date Status Levothyroxine Sodium 100 MCG Oral Tablet (Levoxyl) Take 1 Tablet by mouth in the morning. (at least 30 min prior to breakfast or other meds). 90 Tablet 3 3 Active Benzonatate 100 MG Oral Capsule (Tessalon Perles)Indications: Viral URI with cough Take 1 Capsule by mouth 3 times a day as needed for Cough. 30 Capsule 1 3 Active Acetaminophen 500 MG Oral Tablet (Tylenol)Indication s:Generalized osteoarthritis Take 1 Tablet by mouth in the morning and 1 Tablet at noon and 1 Tablet before bedtime. 100 Tablet 4 Active Metoprolol Succinate ER 50 MG Oral Tablet Extended Release 24 Hour (toPROL XL) TAKE ONE TABLET BY MOUTH IN THE MORNING 90 Tablet 1 4 Active Gabapentin 300 MG Oral Capsule (Neurontin)Indicati ons:DDD (degenerative disc disease), lumbar take 1 capsule three times daily 90 Capsule 5 4 Active Additional Information Patient taking differently: 300 mg Oral Once, Reported on 10/12/2023 Torsemide 20 MG Oral Tablet (Demadex) Take 1 Tablet by mouth daily as needed (swelling, wt gain>2 lbs). 30 Tablet 4 Active Ondansetron HCl 4 MG Oral Tablet (Zofran)Indications :Nausea TAKE ONE TABLET BY MOUTH EVERY 6 HOURS NEEDED FOR NAUSEA 30 Tablet 1 4 Active Calcitriol 0.25 MCG Oral Capsule (Rocaltrol) TAKE 1 CAPSULE ON MONDAYS, WEDNESDAYS, AND FRIDAYS 45 Capsule 1 4 Active busPIRone HCl 10 MG Oral Tablet (Buspar)Indications :Anxiety state TAKE ONE TABLET BY MOUTH TWICE DAILY 60 Tablet 5 4 Active Loperamide HCl 2 MG Oral Capsule (Imodium)Indication s:Chronic diarrhea TAKE ONE CAPSULE BY MOUTH FOUR TIMES DAILY NEEDED 60 Capsule 1 4 Active Eliquis 5 MG Oral Tablet (Apixaban) TAKE ONE TABLET BY MOUTH TWICE DAILY 180 Tablet 3 4 Active hydrOXYzine HCl 10 MG Oral Tablet (Atarax) Take 1 Tablet by mouth every 8 hours as needed for Anxiety. 30 Tablet 1 4 Active Losartan Potassium 25 MG Oral Tablet (Cozaar)Indications :Hypertensive heart and kidney disease with chronic diastolic congestive heart failure and stage 3b chronic kidney disease (HCC) TAKE ONE TABLET BY MOUTH IN THE MORNING 90 Tablet 1 4 Active traZODone HCl 150 MG Oral Tablet (Desyrel)Indication s:Persistent insomnia Take 1 Tablet by mouth at bedtime. 90 Tablet 1 4 Active Pantoprazole Sodium 40 MG Oral Tablet Delayed Release (Protonix)Indicatio ns:Gastric ulcer without hemorrhage or perforation, unspecified chronicity,Gastroes ophageal reflux disease with esophagitis without hemorrhage TAKE ONE TABLET TWICE DAILY 180 Tablet 2 4 Active Rosuvastatin Calcium 10 MG Oral Tablet (Crestor)Indication s:Dyslipidemia, goal LDL below 100 TAKE ONE TABLET AT BEDTIME 90 Tablet 2 4 Active Pantoprazole Sodium 40 MG Oral Tablet Delayed Release (Protonix)Indicatio ns:Gastric ulcer without hemorrhage or perforation, unspecified chronicity,Gastroes ophageal reflux disease with esophagitis without hemorrhage TAKE ONE TABLET TWICE DAILY 180 Tablet 1 4 10/18/19 24 Discontinued Rosuvastatin Calcium 10 MG Oral Tablet (Crestor)Indication s:Dyslipidemia, goal LDL below 100 TAKE ONE TABLET BY MOUTH AT BEDTIME 90 Tablet 1 4 10/18/19 24 Discontinued documented as of this encounter (statuses as of 10/18/2023) Active Problems Problem Noted Date Diagnosed Date [...] BMP Pro-BNP Her weights are stable on [facility]. She appears euvolemic today. Spondylosis of lumbar [...] discuss her pain concerns. She is aware [facility] does not manage chronic pain meds. With her history of confusion, would recommend against use of narcotic medication. Mild aortic stenosis 07/27/2021 Last Assessment & Plan: Following with cardiology Aortocoronary bypass status 03/09/2021 Chronic atrial fibrillation 03/01/2021 Overview: new onset, [facility] on apixaban Last Assessment & Plan: Her [...] as of this encounter (statuses as of 10/18/2023) Resolved Problems Problem Noted Date Diagnosed Date [...] as of this encounter (statuses as of 10/18/2023) Immunizations Name Administration Dates Next Due COVID-19 [...] encounter Miscellaneous Notes * Telephone Encounter - Gilbert Calloway MD - 10/18/2023 11:48 AM EDT Signed Prescriptions: Disp Refills Pantoprazole Sodium 40 MG Oral Tablet Marixa*180 Ta*2 Sig: TAKE ONE TABLET TWICE DAILY Authorizing Provider: GILBERT CALLOWAY Rosuvastatin Calcium 10 MG Oral Tablet (Cr*90 Tab*2 Sig: TAKE ONE TABLET AT BEDTIME Authorizing Provider: GILBERT CALLOWAY * Telephone Encounter - Emilee Rodriges [facility] - 10/18/2023 11:31 AM EDT Pending Prescriptions: Disp Refills Pantoprazole Sodium 40 MG Oral Tablet Marixa*180 Ta*2 Sig: TAKE ONE TABLET TWICE DAILY Rosuvastatin Calcium 10 MG Oral Tablet (Cr*90 Tab*2 Sig: TAKE ONE TABLET AT BEDTIME * Telephone Encounter - Emilee Rodriges [facility] - 10/18/2023 11:29 AM EDT Not yet approved by PCP. Please approve if appropriate. Pending Prescriptions: Disp Refills Pantoprazole Sodium 40 MG Oral Tablet Del*180 Ta*2 Sig: TAKE ONE TABLET TWICE DAILY Rosuvastatin Calcium 10 MG Oral Tablet (C*90 Tab*2 Sig: TAKE ONE TABLET AT BEDTIME Thank you, Emilee Rodriges [facility] Clinical Pharmacist [facility] ([facility]) 10/18/23 11:30 AM [phone] documented in this encounter Plan of Treatment Upcoming Encounters Date Type Department Care Team (Late st Contact Info) Description 10/26/2023 10:00 AM EDT Home Visit [facility], [address] [place] [address] Lana Lieberman, KHARI [address] [place] [address] 04/04/2024 2:40 PM EST Office Visit Nephrology, [facility] [address] [facility] [place] [address] Tirso Shah MD [address] [facility] [address] [place] [address] 06/30/2024 10:00 AM EDT Office Visit Family Medicine [address] [phone] Gilbert Calloway MD [address] [place] [address] [place] [phone] Scheduled Orders Name Type Priority Associated Diagnoses Orde r Schedule VITAMIN B12 Lab Routine Gastric ulcer without hemorrhage or perforation, unspecified chronicity Gastroesophageal reflux disease with esophagitis without hemorrhage Encounter for long-term (current) use of medications Expected: 11/01/2023 (Approximate), Expires: 10/17/2024 Health Maintenance Due Date Last Done Comments DTap/Tdap Vaccines (1 - Tdap) 11/15/1957 Adult Wellness Visit 2002 Depression Monitoring 09/29/2020 09/30/2019 COVID-19 Vaccine ( season) 2022 01/04/2021, 04/19/2020, 04/04/2020, Additional history exists Albumin/Creatinine Ratio 07/28/2023 023, 06/09/2020, 03/13/2019, Additional history exists TSH 07/28/2023 07/27/2022, 05/21, 06/09/2020, Additional history exists CKD PHOS USE SMARTSET 34493 10/05/202309/19, 06/08/2021, 09/07/2020, Additional history exists Influenza Vaccine (FLU shot) (#1) 2023 01/10/2022, 11/18/2020, 12/06/2019, Additional history exists CKD HGB USE SMARTSET 64972 03/06/202403/06, 03/06/2023, 10/04/2022, Additional history exists Pneumococcal [...] for long-term (current) use of other medications Gastric ulcer without hemorrhage or perforation, unspecified chronicity Gastroesophageal reflux disease with esophagitis without hemorrhage Dyslipidemia, goal LDL below 100 Other and unspecified hyperlipidemia documented in this encounter Care Teams Educational Assistant Teacher Relationship Specialty Start Date End Date Gilbert Calloway MD [address] [place] [address] [place] [phone] PCP - General Family Medicine 07/30/23 documented as of this encounter
--- OUTSIDE RECORDS SUMMARY | 2023-11-03 17:36 | External Medical Summary | Summary of Care ---
Author Name Unknown Organization [facility] Address [address] [place] [address] Phone [phone] Care Team Providers Care Public Relations Account Executive Name Role Phone Gilbert Calloway MD Primary Care Provide r Encounter Details Date Type Department Care Team (Late st Contact Info) Description 09/26/2023 Population Health External Data Unspecified Department Allergies [...] BY MOUTH AT BEDTIME 90 Tablet 1 05/03/2023 Active Metoprolol Succinate ER 50 MG Oral Tablet Extended Release 24 Hour (toPROL XL) TAKE ONE TABLET BY MOUTH IN THE MORNING 90 Tablet 1 06/26/2023 Active Meloxicam 7.5 MG Oral Tablet (Mobic)Indications:Bi lateral shoulder region arthritis Take 1 Tablet by mouth in the morning. for pain.. 30 Tablet 5 07/20/2023 Active Gabapentin 300 MG Oral Capsule (Neurontin)Indication s:DDD (degenerative disc disease), lumbar take 1 capsule three times daily 90 Capsule 5 07/26/2023 Active traZODone HCl 150 MG Oral Tablet (Desyrel)Indications: Persistent insomnia One at bedtime 30 Tablet 5 07/30/2023 Active Torsemide 20 MG Oral Tablet [...] discuss her pain concerns. She is aware [facility] does not manage chronic pain 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[place] co ronary artery of [place] heart without angina pectoris Last Assessment & [...] 10:40 AM EDT Office Visit Family Medicine [address] [phone] Gilbert Calloway MD [address] [place] [address] [place] [id number] 04/04/2024 2:40 PM EST Office Visit Nephrology [facility] [address] [facility] [place] [id number] Tirso Shah MD [address] [facility] [place] [id number] Health Maintenance Due Date Last Done Comments DTaP,Tdap,and Td Vaccines (1 - Tdap) 11/15/1957 Adult Wellness Visit 2002 Depression Monitoring 09/29/2020 09/30/2019 COVID-19 Vaccine ( season) 2022 04/19/2020, 04/04/2020, 03/22/2020, Additional history exists Albumin/Creatinine Ratio 07/28/2023 023, 06/09/2020, 03/13/2019, Additional history exists TSH 07/28/2023 07/27/2022, 05/21, 06/09/2020, Additional history exists CKD PHOS USE SMARTSET 57823 10/05/202309/19, 06/08/2021, 09/07/2020, Additional history exists Influenza Vaccine (FLU shot) (#1) 2023 01/10/2022, 11/18/2020, 12/06/2019, Additional history exists CKD HGB USE SMARTSET 84990 03/06/202403/06, 03/06/2023, 10/04/2022, Additional history exists Pneumococcal [...] filedocumented as of this encounter Care Teams Public Relations Account Executive Relationship Specialty Start Date End Date Gilbert Calloway MD [address] [place] [address] [place] [phone] PCP - General Family Medicine 07/30/23 documented as of this encounter
--- OUTSIDE RECORDS SUMMARY | 2023-11-03 17:36 | External Medical Summary | Summary of Care ---
Author Name Unknown Organization [facility] Address [address] [place] [address] Phone [phone] Care Team Providers Care Earth Observations Chief Scientist Name Role Phone Gilbert Calloway MD Primary Care Provide r Reason for Visit * Reason Comments eRx-Medication Refill Encounter Details Date Type Department Care Team (Late st Contact Info) Description 10/22/2023 Refill Family Medicine [address] [place] [phone] Gilbert Calloway MD [address] [place] [address] [place] [phone] Allergies Active Allergy Reactions Criticality Noted Date Comments Ergotamine 03/01/2000 vomit Nitroglycerin 03/14/2007 vomitting documented as of this encounter (statuses as of 10/24/2023) Medications Medication Sig Dispensed Refills Start Date End Date Status Benzonatate 100 MG Oral Capsule (Tessalon Perles)Indications: [...] TWICE DAILY 180 Tablet 3 4 Active Losartan Potassium 25 MG Oral Tablet (Cozaar)Indications :Hypertensive heart and kidney disease with chronic diastolic congestive heart failure and stage 3b chronic kidney disease (HCC) TAKE ONE TABLET BY MOUTH IN THE MORNING 90 Tablet 1 4 Active traZODone HCl 150 MG Oral Tablet (Desyrel)Indication s:Persistent insomnia Take 1 Tablet by mouth at bedtime. 90 Tablet 1 4 Active Levothyroxine Sodium 100 MCG Oral Tablet (Levoxyl) TAKE ONE TABLET IN THE MORNING 90 Tablet 4 Active Pantoprazole Sodium 40 MG Oral Tablet Delayed Release (Protonix)Indicatio ns:Gastric ulcer without hemorrhage or perforation, unspecified chronicity,Gastroes ophageal reflux disease with esophagitis without hemorrhage TAKE ONE TABLET TWICE DAILY 180 Tablet 2 4 Active Rosuvastatin Calcium 10 MG Oral Tablet (Crestor)Indication s:Dyslipidemia, goal LDL below 100 TAKE ONE TABLET AT BEDTIME 90 Tablet 2 4 Active hydrOXYzine HCl 10 MG Oral Tablet (Atarax) TAKE ONE TABLET BY MOUTH EVERY 8 HOURS NEEDED FOR ANXIETY 30 Tablet 1 4 Active hydrOXYzine HCl 10 MG Oral Tablet (Atarax) Take 1 Tablet by mouth every 8 hours as needed for Anxiety. 30 Tablet 1 4 10/24/19 24 Discontinued documented as of this encounter (statuses as of 10/24/2023) Active Problems Problem Noted Date Diagnosed Date [...] pain concerns. She is aware [facility] does not manage chronic pain meds. With her history of confusion, would recommend against use of narcotic medication. Mild aortic stenosis 07/27/2021 Last Assessment & Plan: Following with cardiology Aortocoronary bypass status 03/09/2021 Chronic atrial fibrillation 03/01/2021 Overview: new onset, [facility] on apixaban Last Assessment & Plan: Her 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[place] co ronary artery of [place] heart without angina pectoris Last Assessment & Plan: Stable no angina -continue rosuvastatin, metopropolol, Primary hypertension Gastroesophageal reflux dise ase with esophagitis without hemorrhage Last Assessment & Plan: symptoms controlled on pantoprazole Scoliosis of lumbar spine Mixed incontinence urge and stress (male)(female ) documented as of this encounter (statuses as of 10/24/2023) Resolved Problems Problem Noted Date Diagnosed Date [...] as of this encounter (statuses as of 10/24/2023) Immunizations Name Administration Dates Next Due COVID-19 [...] 03/07/2023 Does the household have a re lar source of income? (Household - for ages [...] Telephone Encounter - Gilbert Calloway MD - 10/24/2023 8:21 PM EDT Signed Prescriptions: Disp Refills hydrOXYzine HCl 10 MG Oral Tablet (Atarax) 30 Tab*1 Sig: TAKE ONE TABLET BY MOUTH EVERY 8 HOURS NEEDED FOR ANXIETY Authorizing Provider: GILBERT CALLOWAY * Telephone Encounter - Matilda Cardenas [facility] - 10/24/2023 9:36 AM EDT Pending Prescriptions: Disp Refills hydrOXYzine HCl 10 MG Oral Tablet [Pharmac*30 Tab*1 Sig: TAKE ONE TABLET BY MOUTH EVERY 8 HOURS NEEDED FOR ANXIETY * Telephone Encounter - Matilda Cardenas RP - 10/24/2023 9:36 AM EDT [facility] is currently not authorized to approve refills for the pended medication(s) per refill protocol. Please approve if appropriate. Thank you, Matilda Cardenas, PharmD Clinical Pharmacist [facility] ([facility]) 10/24/23 9:36 AM [phone] documented in this encounter Plan of Treatment Upcoming Encounters Date Type Department Care Team (Late st Contact Info) Description 10/26/2023 10:00 AM EDT Home Visit [facility] [address] [facility] [place] [address] Lana Lieberman, RN [address] [facility] [place] [address] 04/04/2024 2:40 PM EST Office Visit Nephrology, [facility] [address] [place] [address] Tirso Shah MD [address] [place] [id number] 06/30/2024 10:00 AM EDT Office Visit Family Medicine [address] [place] [phone] Glibert Calloway MD [address] [place] [address] [place] [phone] Health Maintenance Due Date Last Done Comments DTap/Tdap Vaccines (1 - Tdap) 11/15/1957 Adult Wellness Visit 2002 Depression Monitoring 09/29/2020 09/30/2019 Albumin/Creatinine Ratio 07/28/2023 023, 06/09/2020, 03/13/2019, Additional history exists TSH 07/28/2023 07/27/2022, 05/21, 06/09/2020, Additional history exists CKD PHOS USE SMARTSET 73620 10/05/202309/19, 06/08/2021, 09/07/2020, Additional history exists COVID-19 Vaccine ( season) 2023 01/04/2021, 04/19/2020, 04/04/2020, Additional history exists Influenza Vaccine (FLU shot) (#1) 2023 01/10/2022, 11/18/2020, 12/06/2019, Additional history exists CKD HGB USE SMARTSET 45070 03/06/202403/06, 03/06/2023, 10/04/2022, Additional history exists Pneumococcal [...] filedocumented as of this encounter Care Teams Earth Observations Chief Scientist Relationship Specialty Start Date End Date Gilbert Calloway MD [address] [place] [address] [place] [phone] PCP - General Family Medicine 07/30/23 documented as of this encounter
--- OUTSIDE RECORDS SUMMARY | 2023-11-03 17:36 | External Medical Summary | Summary of Care ---
Author Name Unknown Organization [facility] Address [address] [place] [address] Phone [phone] Care Team Providers Care Manager Of Compensation Name Role Phone Gilbert Calloway MD Primary Care Provide r Reason for Visit * Reason Comments Re-Check Encounter Details Date Type Department Care Team (Late st Contact Info) Description 10/12/2023 10:40 AM EDT Office Visit Family Medicine [address] [place] [phone] Gilbert Calloway MD [address] [place] [address] [place] [phone] Low blood sugar*; Persistent insomnia; Chronic atrial fibrillation (HCC); Chronic heart failure with preserved ejection fraction (HCC); Acquired hypothyroidism; Anxiety; Mixed hyperlipidemia; Stage 3a chronic kidney disease (HCC); Major depressive disorder with single episode, in partial remission ([facility]) Allergies Active Allergy Reactions Criticality Noted Date Comments Ergotamine 03/01/2000 vomit Nitroglycerin 03/14/2007 vomitting documented as of this encounter (statuses as of 10/12/2023) Medications Medication Sig Dispensed Refills Start Date [...] 01/15/2023 Active Acetaminophen 500 MG Oral Tablet (Tylenol)Indication [...] 06/26/2023 Active Gabapentin 300 MG Oral Capsule (Neurontin)Indicati [...] at bedtime. 90 Tablet 1 10/12/2023 Active Meloxicam 7.5 MG Oral Tablet (Mobic)Indications: Bilateral shoulder region arthritis Take 1 Tablet by mouth in the morning. for pain.. 30 Tablet 5 07/20/2023 4 Discontinu ed(Medicat ion List Clean Up) traZODone HCl 150 MG Oral Tablet (Desyrel)Indication s:Persistent insomnia One at bedtime 30 Tablet 5 07/30/2023 4 Discontinu ed(Refill) documented as of this encounter (statuses as of 10/12/2023) Active Problems Problem Noted Date Diagnosed Date [...] as of this encounter (statuses as of 10/12/2023) Resolved Problems Problem Noted Date Diagnosed Date [...] with depressed mood 03/13/2019 MEDICATION USE AGREEMENT 11/ Cataract cortical, senile Benign hypertension with CKD (chronic kidney disease) stage III 07/01/2020 Overview: Per CKD protocol Major depression, single episode 07/27/2022 Last Assessment & Plan: Denies depression. Stable Continue remeron documented as of this encounter (statuses as of 10/12/2023) Immunizations Name Administration Dates Next Due COVID-19 [...] No 03/07/2023 Does the household have a [facility] source of income? (Household - for ages [...] Sign Reading Time Taken Comments Blood Pressure 126/74 10/12/2023 10:51 AM EDT Pulse 86 10/12/2023 10:51 AM EDT Temperature 36.1 C (96.9 F) 10/12/2023 10:51 AM E DT Respiratory Rate - - Oxygen Saturation 96% 10/12/2023 10:51 AM EDT Inhaled Oxygen Concentration - - Weight - - Height - - Body Mass Index - - documented in this encounter Progress Notes * Gilbert Calloway MD - 10/12/2023 10:59 AM EDT Subjective: HPI: Zoya Howard is a 84 year old female with hx of Afib on eliquis, HFpEF, CAD s/p CABG, Mild , HLD, hypothyroidism, GERD, HTN, CKD III, DDD, Migraine, anxiety, depression, insomnia, urinary incontinence seen for Pt is here to est care - pt is nervous about meeting a new PCP Overall doing well -has not had anything to eat for 6 hours Anxiety: - currently on buspar 10mg BID, hydroxyzine orn - stable Taking meloxicam for DJD pain - also on eliquis and has CKD III - willing to stop the medication - does not drink enough water Afib on eliquis and HFpEF: - follows up with cardiology ([facility]) - on prn torsemide Insomnia: - not taking trazodone - did not sleep good last 4 days - used to take ambien Live by herself - @ [facility] - no Family member lives close by - EC: Matt (brother) Patient Active Problem List Diagnosis Hip joint replacement status GENERAL OSTEOARTHROSIS Atherosclerosis of [place] coronary artery of [place] heart without angina pectoris Anxiety state ADVANCE DIRECTIVE INFORMATION DYSLIPIDEMIA, GOAL LDL BELOW 100 Primary hypertension Low back pain radiating to left leg Insomnia Gastroesophageal reflux disease with esophagitis without hemorrhage Acquired hypothyroidism Scoliosis of lumbar spine Bilateral shoulder region arthritis DDD (degenerative disc disease), lumbar Mixed incontinence urge and stress (male)(female) Aortic ectasia, thoracic (HCC) Other idiopathic scoliosis, thoracolumbar region History of gastric ulcer Greater trochanteric bursitis of right hip Chronic atrial fibrillation (HCC) 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 (at least30 min prior to breakfast or other meds). 90 Tablet 3 Benzonatate 100 MG Oral Capsule (Tessalon Perles) Take 1 Capsule by mouth 3 times a day as needed for Cough. 30 Capsule 1 Acetaminophen 500 MG Oral Tablet (Tylenol) Take 1 Tablet by mouth in the morning and 1 Tablet at noon and 1 Tablet before bedtime. 100 Tablet 0 Pantoprazole Sodium 40 MG Oral Tablet Delayed Release (Protonix) TAKE ONE TABLET TWICE DAILY 180 Tablet 1 Rosuvastatin Calcium 10 MG Oral Tablet (Crestor) TAKE ONE TABLET BY MOUTH AT BEDTIME 90 Tablet 1 Metoprolol Succinate ER 50 MG Oral Tablet Extended Release 24 Hour (toPROL XL) TAKE ONE TABLET BY MOUTH IN THE MORNING 90 Tablet 1 Gabapentin 300 MG Oral Capsule (Neurontin) take 1 capsule three times daily (Patient taking differently: Take 1 Capsule by mouth 1 time.) 90 Capsule 5 Torsemide 20 MG Oral Tablet (Demadex) Take 1 Tablet by mouth daily as needed (swelling, wt gain>2 lbs). 30 Tablet 0 Ondansetron HCl 4 MG Oral Tablet (Zofran) TAKE ONE TABLET BY MOUTH EVERY 6 HOURS NEEDED FOR NAUSEA 30 Tablet 1 Calcitriol 0.25 MCG Oral Capsule (Rocaltrol) TAKE 1 CAPSULE ON MONDAYS, WEDNESDAYS, AND FRIDAYS 45 Capsule 1 busPIRone HCl 10 MG Oral Tablet (Buspar) TAKE ONE TABLET BY MOUTH TWICE DAILY 60 Tablet 5 Loperamide HCl 2 MG Oral Capsule (Imodium) TAKE ONE CAPSULE BY MOUTH FOUR TIMES DAILY NEEDED 60 Capsule 1 Eliquis 5 MG Oral Tablet (Apixaban) TAKE ONE TABLET BY MOUTH TWICE DAILY 180 Tablet 3 hydrOXYzine HCl 10 MG Oral Tablet (Atarax) Take 1 Tablet by mouth every 8 hours as needed for Anxiety. 30 Tablet 1 Losartan Potassium 25 MG Oral Tablet (Cozaar) TAKE ONE TABLET BY MOUTH IN THE MORNING 90 Tablet 1 traZODone HCl 150 MG Oral Tablet (Desyrel) Take 1 Tablet by mouth at bedtime. 90 Tablet 1 No current facility-administered medications for this visit. Past Medical History: Diagnosis Date (HFpEF) heart failure with preserved ejection fraction ([facility]) 12/07/2022 Acute on chronic combined systolic and diastolic CHF (congestive heart failure) ([facility]) 03/28/2021 admitted [facility] Anxiety state Anxiety State Aortic valve stenosis, mild 03/01/2021 Aortocoronary bypass status Atherosclerosis of [place] coronary artery of [place] heart without angina pectoris Atrial fibrillation ([facility]) 12/09/2020 during admission [place] Benign hypertension with CKD (chronic kidney disease) stage III ([facility]) Cataract cortical, senile Chronic atrial fibrillation ([facility]) 03/01/2021 new onset, [facility] on apixaban CKD (chronic kidney disease) stage 3, GFR 30-59 ml/min ([facility]) 07/03/2013 GFR 36.9 Closed fracture [...] AGREEMENT 03/19/2012 Tylenol with codeine--Reena Meningioma, cerebral ([facility]) 07/16/2022 small frontal cortex meningioma without mass effect Meningioma, cerebral ([facility]) 08/02/2022 Adding D32.0-Meningioma, cerebral (HCC) Dx to History Migraines history of migraines--stopped 1998 Mixed incontinence urge and stress (male)(female) Moderate mitral regurgitation 03/01/[address] Ndiaye Other and unspecified noninfectious gastroenteritis and colitis(558.9) 06/24/2013 admitted [facility] Other forms of retinal detachment(361.89) Pneumonia 01/29/2023 admitted [facility] with pneumonia, sepsis, CHF Pneumonia due to COVID-19 virus 12/09/2020 [place], transferred to [place] Postoperative anemia due to acute blood loss [...] cerebellar infarct COLONOSCOPY, DIAGNOSTIC (RECTUM) 08/01/2016 normal /[facility] COLORECTAL CANCER SCREEN;W/FLE 08/2000 [...] Nitro [Nitroglycerin] vomitting Family History Problem Relation Name Age of Onset Heart Disorder Mother age 84 CHF Allergies Father No Past Hx Father dies age 74 allergicRXN Heart Disorder Brother CAD, Dementia Heart Disorder Brother CAD Heart Disorder Brother CAD Heart Disorder Sister CAD Social History Tobacco Use Smoking status: Never Smokeless tobacco: Never Substance Use Topics Alcohol use: Yes Comment: OCC-- 2oz per week Vaping/E-Cigarette Use Vaping/E-Cigarette Substances Vaping/E-Cigarette Devices ROS: -Per HPI OBJECTIVE: BP 126/74 | Pulse 86 | Temp 36.1 C (96.9 F) | SpO2 96% PHYSICAL EXAM: Vitals are reviewed General:. NAD, well developed HEENT:. Normal Conjunctiva, EOMI Cardiac:.systolic murmur, Normal S1, S2 Lungs:. CTA, no wheezing or crackles MSK:. Normal gait Psych:. AAOx3, normal affect ASSESSMENT/PLAN: Pt's glucose was 88 - sugar improved after juice and pt felt better Refilled the trazodone Sched to see nephro -- recommended increase in water intake -- stopped the meloxicam Low blood sugar (Primary) Persistent insomnia - traZODone HCl 150 MG Oral Tablet (Desyrel); Take 1 Tablet by mouth at bedtime. Chronic atrial fibrillation (HCC) Chronic heart failure with preserved ejection fraction (HCC) Acquired hypothyroidism Anxiety Mixed hyperlipidemia Stage 3a chronic kidney disease (HCC) I spent a total of 40-54 minutes (exact time 44 mins) on the date of service in preparation, delivery, and documentation of the care provided to Zoya Howard excluding any time spent in the performance of separately billed services or time spent by another provider/QHP. Gilbert Calloway MD Family medicine[address] [address] documented in this encounter Nursing Notes * Rula Cosby CMA - 10/12/2023 10:49 AM EDT She is here to possibly establish care with Dr. Bell today. Patient had trouble walking in the building today upon arrival. Sudden onset of SOB and weakness ofbilateral legs. No CP, no visual changes, no dizziness. documented in this encounter Plan of Treatment Upcoming Encounters Date Type Department Care Team (Late st Contact Info) Description 10/26/2023 10:00 AM EDT Home Visit [facility] [address] [facility] [place] [address] Lana Lieberman RN [address] [facility] [place] [address] 04/04/2024 2:40 PM EST Office Visit Nephrology, [facility] [address] [facility] [place] [address] Tirso Shah MD [address] [facility] [place] [address] 06/30/2024 10:00 AM EDT Office Visit Family Medicine [address] [place] [phone] Gilbert Calloway MD [address] [place] [address] [place] [phone] Scheduled Orders Name Type Priority Associated Diagnoses Orde r Schedule BASIC METABOLIC PANEL Lab Routine Persistent insomnia Chronic heart failure with preserved ejection fraction (HCC) Stage 3a chronic kidney disease (HCC) Ordered: 10/12/2023 HEMOGLOBIN A1C Lab Routine Low blood sugar Ordered: 10/12/2023 LIPID PANEL WITHOUT DIRECT LDL Lab Routine Mixed hyperlipidemia Ordered: 10/12/2023 TSH Lab Routine Acquired hypothyroidism Ordered: 10/12/2023 Health Maintenance Due Date Last Done Comments DTaP,Tdap,and Td Vaccines (1 - Tdap) 11/15/1957 Adult Wellness Visit 2002 Depression Monitoring 09/29/2020 09/30/2019 COVID-19 Vaccine ( season) 2022 01/04/2021, 04/19/2020, 04/04/2020, Additional history exists Albumin/Creatinine Ratio 07/28/2023 023, 06/09/2020, 03/13/2019, Additional history exists TSH 07/28/2023 07/27/2022, 05/21, 06/09/2020, Additional history exists CKD PHOS USE SMARTSET 68954 10/05/202309/19, 06/08/2021, 09/07/2020, Additional history exists Influenza Vaccine (FLU shot) (#1) 2023 01/10/2022, 11/18/2020, 12/06/2019, Additional history exists CKD HGB USE SMARTSET 70646 03/06/202403/06, 03/06/2023, 10/04/2022, Additional history exists Pneumococcal [...] Not on filedocumented as of this encounter Procedures Procedure Name Priority Date/Time Associated Diagnosis Comments GLUCOSE METER, POINT OF CARE [facility] 10/12/2023 11:40 AM EDT GLUCOSE METER, POINT OF CARE [facility] 10/12/2023 11:18 AM EDT documented in this encounter Results * (ABNORMAL) GLUCOSE METER, POINT OF CARE (10/12/2023 11:40 AM EDT) Glucose Meter 128(H) 70 - 120 mg/dL 10/12/2023 11:55 AM EDT [facility] 55-00 Blood Whole blood specimen / Unknown 10/12/2023 11:40 AM EDT 10/12/2023 11:55 AM EDT Gilbert Calloway MD LAB POINT OF CARE TEST DOCKED DEVICE UNSOLICITED RESULTS Performing Organization Address City/[facility]/ZIP Co de Phone Number [facility] [address] [place] [phone] * GLUCOSE METER, POINT OF CARE (10/12/2023 11:18 AM EDT) Glucose Meter 88 70 - 120 mg/dL 10/12/2023 11:55 AM EDT [facility] 55 Blood Whole blood specimen / Unknown 10/12/2023 11:18 AM EDT 10/12/2023 11:55 AM EDT Gilbert Calloway MD LAB POINT OF CARE TEST DOCKED DEVICE UNSOLICITED RESULTS Performing Organization Address [facility] Co de Phone Number [facility] [address] [place] [address] [place] [phone] documented in this encounter Visit Diagnoses Diagnosis Low blood sugar- Primary Hypoglycemia, unspecified Persistent insomnia Persistent disorder of initiating or maintaining sleep Chronic atrial fibrillation (HCC) Atrial fibrillation Chronic heart failure with preserved ejection fraction (HCC) Acquired hypothyroidism Unspecified hypothyroidism Anxiety Anxiety state, unspecified Mixed hyperlipidemia Stage 3a chronic kidney disease (HCC) Major depressive disorder with single episode, in partial remission (HCC) documented in this encounter Care Teams Manager Of Compensation Relationship Specialty Start Date End Date Gilbert Calloway MD [address] [place] [address] [place] [phone] PCP - General Family Medicine 07/30/23 documented as of this encounter
--- OUTSIDE RECORDS SUMMARY | 2023-11-03 17:36 | External Medical Summary | Summary of Care ---
Author Name Unknown Organization [facility] Address [address] [place] [address] Phone [phone] Care Team Providers Care Legal Financial Specialist Name Role Phone Gilbert Calloway MD Primary Care Provide r Reason for Visit * Reason Comments eRx-Medication Refill Encounter Details Date Type Department Care Team (Late st Contact Info) Description 09/19/2023 Refill Family Medicine [address] [place] [phone] Lucio Otoole PA-C [address] [place] [address] [place] [phone] Hypertensive heart and kidney disease with chronic diastolic congestive heart failure and stage 3b chronic kidney disease (HCC) Allergies Active Allergy Reactions Criticality Noted Date Comments Ergotamine 03/01/2000 vomit Nitroglycerin 03/14/2007 vomitting documented as of this encounter (statuses as of 09/20/2023) Medications Medication Sig Dispensed Refills Start Date [...] TAKE ONE TABLET TWICE DAILY 180 Tablet 05/03/2023 Active Rosuvastatin Calcium 10 MG Oral Tablet (Crestor)Indication s:Dyslipidemia, goal LDL below 100 TAKE ONE TABLET BY MOUTH AT BEDTIME 90 Tablet 05/03/2023 Active Metoprolol Succinate ER 50 MG Oral Tablet Extended Release 24 Hour (toPROL XL) TAKE ONE TABLET BY MOUTH IN THE MORNING 90 Tablet 06/26/2023 Active Meloxicam 7.5 MG Oral Tablet (Mobic)Indications: Bilateral shoulder region arthritis Take 1 Tablet by mouth in the morning. for pain.. 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 90 Tablet 1 04/05/2023 09/20/19 24 Discontinued documented as of this encounter (statuses as of 09/20/2023) Active Problems Problem Noted Date Diagnosed Date [...] Chronic atrial fibrillation 03/01/2021 Overview: new onset, [place] on apixaban Last Assessment & Plan: Her 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[place] ronary artery of [place] heart without angina pectoris Last Assessment & Plan: Stable no angina -continue rosuvastatin, metopropolol, Anxiety state Last Assessment & Plan: Stable on buspar, Primary hypertension Gastroesophageal reflux dise ase with esophagitis without hemorrhage Last Assessment & Plan: symptoms controlled on pantoprazole Scoliosis of lumbar spine Mixed incontinence urge and stress (male)(female ) documented as of this encounter (statuses as of 09/20/2023) Resolved Problems Problem Noted Date Diagnosed Date [...] as of this encounter (statuses as of 09/20/2023) Immunizations Name Administration Dates Next Due COVID-19 [...] No 03/07/2023 Does the household have a [facility] [employer] source of income? (Household - for ages [...] encounter Miscellaneous Notes * Telephone Encounter - Santhosh Mcdonald RPh - 09/20/2023 8:47 AM EDT Signed Prescriptions: Disp Refills Losartan Potassium 25 MG Oral Tablet (Coza*90 Tab*1 Sig: TAKE ONE TABLET BY MOUTH IN THE MORNINGAuthorizing Provider: LUCIO OTOOLE User: SANTHOSH MCDONALD documented in this encounter Plan of Treatment Upcoming Encounters Date Type Department Care Team (Late st Contact Info) Description 09/25/2023 8:30 AM EDT Home Visit [facility] [address] [place] [address] Lana Liebermna, KHARI [address] [place] [address] 10/12/2023 10:40 AM EDT Office Visit Family Medicine [address] [place] [phone] Gilbert Calloway MD [address] [place] [address] [place] [phone] 04/04/2024 2:40 PM EST Office Visit Nephrology, [facility] [address] [facility] [place] [address] Tirso Shah MD [address] [facility] [place] [address] Health Maintenance Due Date Last Done Comments DTaP,Tdap,and Td Vaccines (1 - Tdap) 11/15/1957 Depression Monitoring 09/29/2020 09/30/2019 COVID-19 Vaccine (5 - 2022- season) 2022 04/19/2020, 04/04/2020, 03/22/2020, Additional history exists Albumin/Creatinine Ratio 07/28/2023 023, 06/09/2020, 03/13/2019, Additional history exists TSH 07/28/2023 07/27/2022, 05/21, 06/09/2020, Additional history exists CKD PHOS USE SMARTSET 83029 10/05/2023 0807/2022, 06/08/2021, 09/07/2020, Additional history exists Influenza Vaccine (FLU shot) (#1) 2023 01/10/2022, 11/18/2020, 12/06/2019, Additional history exists CKD HGB USE SMARTSET 58270 03/06/202403/06, 03/06/2023, 10/04/2022, Additional history exists Pneumococcal [...] (HCC) documented in this encounter Care Teams Legal Financial Specialist Relationship Specialty Start Date End Date Gilbert Calloway MD [address] [place] [address] [place] [phone] PCP - General Family Medicine 07/30/23 documented as of this encounter
--- OUTSIDE RECORDS SUMMARY | 2023-11-03 17:36 | External Medical Summary | Summary of Care ---
Author Name Unknown Organization [facility] Address [address] [place] [address] Phone [phone] Care Team Providers Care Inspector Insulation Name Role Phone Gilbert Calloway MD Primary Care Provide r Reason for Visit * Reason Comments eRx-Medication Refill Encounter Details Date Type Department Care Team (Late st Contact Info) Description 10/16/2023 Refill Family Medicine [address] [place] [phone] Gilbert Calloway MD [address] [place] [address] [place] [phone] Allergies Active Allergy Reactions Criticality Noted Date Comments Ergotamine 03/01/2000 vomit Nitroglycerin 03/14/2007 vomitting documented as of this encounter (statuses as of 10/19/2023) Medications Medication Sig Dispensed Refills Start Date [...] IN THE MORNING 90 Tablet 4 Active Levothyroxine Sodium 100 MCG Oral Tablet (Levoxyl) Take 1 Tablet by mouth in the morning. (at least 30 min prior to breakfast or other meds). 90 Tablet 3 3 10/19/19 24 Discontinued Pantoprazole Sodium 40 MG Oral Tablet Delayed [...] as of this encounter (statuses as of 10/19/2023) Active Problems Problem Noted Date Diagnosed Date [...] BMP Pro-BNP Her weights are stable on [facility]. She appears euvolemic today. Spondylosis [...] pain concerns. She is aware [facility] does not manage chronic pain meds. With her history of confusion, would recommend against use of narcotic medication. Mild aortic stenosis 07/27/2021 Last Assessment & Plan: Following with cardiology Aortocoronary bypass status 03/09/2021 Chronic atrial fibrillation 03/01/2021 Overview: new onset, [facility] on apixaban Last Assessment & 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[place] co ronary artery of [place] heart without angina pectoris Last Assessment & Plan: Stable no angina -continue rosuvastatin, metopropolol, Primary hypertension Gastroesophageal reflux dise ase with esophagitis without hemorrhage Last Assessment & Plan: symptoms controlled on pantoprazole Scoliosis of lumbar spine Mixed incontinence urge and stress (male)(female ) documented as of this encounter (statuses as of 10/19/2023) Resolved Problems Problem Noted Date Diagnosed Date Resolved Date Anxiety state 10/12/2023 10/12/2023 Last Assessment & Plan: Stable on buspar, Meningioma, cerebral 07/16/2022 023 Overview: small frontal cortex meningioma without mass effect Current moderate episode of major depressive disorder without prior episode 04/07/2022 4 Migraine without aura and wi thout status [...] ulcer 06/30/2014 06/26/2017 Overview: hgb 7.4 admitted [facility] CKD (chronic kidney disease) stage [...] as of this encounter (statuses as of 10/19/2023) Immunizations Name Administration Dates Next Due COVID-19 [...] Telephone Encounter - Gilbert Calloway MD - 10/19/2023 7:30 AM EDT Signed Prescriptions: Disp Refills Levothyroxine Sodium 100 MCG Oral Tablet (*90 Tab*0 Sig: TAKE ONE TABLET IN THE MORNING Authorizing Provider: GILBERT CALLOWAY * Telephone Encounter - Vidhya Baker PHARM Tech - 10/18/2023 2:45 PM EDTPending Prescriptions: Disp Refills Levothyroxine Sodium 100 MCG Oral Tablet (*90 Tab*0 Sig: TAKE ONE TABLET IN THE MORNING * Telephone Encounter - Vidhya Baker PHARM Tech - 10/18/2023 2:44 PM EDT Received message from [facility] regarding patient needing labs. Call Placed, Unable to reach pt, as therewas no answer and no VM available to leave message. Sent the patient a [employer] message to advise. Thank you, Vidhya Baker [facility] Dental Laboratory Assistant II [facility] 10/18/2023,2:44 PM * Telephone Encounter - Emilee Rodriges [facility] - 10/18/2023 11:29 AM EDT Pending Prescriptions: Disp Refills Levothyroxine Sodium 100 MCG Oral Tablet (*90 Tab*0 Sig: TAKE ONE TABLET IN THE MORNING * Telephone Encounter - Emilee Rodriges [facility] - 10/18/2023 11:28 AM EDT Provided 90 days supply with 0 refill(s). Per refill protocol patient should have thyroid labs on file within past year. Reviewed AMP report, Care Gaps/Health Maintenance, medications list, and for any routine labs typically ordered for this patient. Lab orders placed. Please contact patient to advise of labs ordered for blood draw. Fasting is not required. Advise toobtain labs before requesting the next refill. After contacting Patient, please forward to PCP Thank you, Emilee Rodriges [facility] Clinical Pharmacist [facility] ([facility]) 10/18/23 11:28 AM [phone] * Telephone Encounter - Emilee Rodriges RPh - 10/18/2023 11:27 AM EDT Did you pend patient's preferred pharmacy and medication before forwarding?yes Pharmacy: [facility], [address] [place] Pending Prescriptions: Disp Refills Levothyroxine Sodium 100 MCG Oral Tablet *90 Tab*0 Sig: TAKE ONE TABLET IN THE MORNING Last Visit: 10/12/2023 (in office), 01/10/2023 (telemedicine) Next Visit: 06/30/2024 If no future appointments scheduled, and last appointment is greater than a year ago, please schedule patient for a follow-up appointment Last date the medication was ordered: 11/20/2022 Is this request for a controlled substance?No [...] URINE VALID INTERP NORMAL CREATININE KEVYN 64 *Note: Due to a large number of results and/or encounters for the requested time period, some results have not been displayed. A complete set of results can be found in Results Review. Patient Phone Numbers Labs: Lab Results Component Value Date/Time CREAT 1.3 (H) 05/29/2023 03:45 PM CREAT 1.08 05/09/2021 12:00 AM CREAT 1.4 (H) 06/16/2019 10:39 AM POTASSIUM 4.5 05/29/2023 03:45 PM POTASSIUM 4.5 05/09/2021 12:00 AM POTASSIUM 5.1 06/16/2019 10:39 AM TSH 0.34 07/27/2022 11:42 AM TSH 0.77 06/16/2019 10:39 AM TSH 1.45 02/04/1996 09:00 AM LDL 73 06/09/2020 10:47 AM LDL 82 08/02/2015 02:56 PM LDL NOT APPLICABLE 08/02/2015 02:56 PM ALT 13 03/06/2023 02:29 PM ALT 26 06/16/2019 10:39 AM HGBA1C 5.7 (A) 01/25/2018 12:00 AM HGBA1C 5.2 11/04/2013 12:09 PM documented in this encounter Plan of Treatment Upcoming Encounters Date Type Department Care Team (Late st Contact Info) Description 10/26/2023 10:00 AM EDT Home Visit [facility] [place], [facility] [address] [address] Lana Lieberman RN [address] [place] [address] 04/04/2024 2:40 PM EST Office Visit Nephrology, [facility] Sparks [address] [facility], [place] [address] Tirso Shah MD [address] [facility] [place] [address] 06/30/2024 10:00 AM EDT Office Visit Family [address] [phone] Gilbert Calloway MD [address] [place] [address] [place] [address] Health Maintenance Due Date Last Done Comments DTap/Tdap Vaccines (1 - Tdap) 11/15/1957 Adult Wellness Visit 2002 Depression Monitoring 09/29/2020 09/30/2019 COVID-19 Vaccine ( season) 2022 01/04/2021, 04/19/2020, 04/04/2020, Additional history exists Albumin/Creatinine Ratio 07/28/2023 023, 06/09/2020, 03/13/2019, Additional history exists TSH 07/28/2023 07/27/2022, 05/21, 06/09/2020, Additional history exists CKD PHOS USE SMARTSET 81808 10/05/202309/19, 06/08/2021, 09/07/2020, Additional history exists Influenza Vaccine (FLU shot) (#1) 2023 01/10/2022, 11/18/2020, 12/06/2019, Additional history exists CKD HGB USE SMARTSET 79625 03/06/202403/06, 03/06/2023, 10/04/2022, Additional history exists Pneumococcal [...] filedocumented as of this encounter Care Teams Inspector Insulation Relationship Specialty Start Date End Date Gilbert Calloway MD [address] [place] [address] [place] [phone] PCP - General Family Medicine 07/30/23 documented as of this encounter
--- OUTSIDE RECORDS SUMMARY | 2023-11-03 17:36 | External Medical Summary | Summary of Care ---
Author Name Unknown Organization [facility] Address [address] [place] [address] Phone [phone] Care Team Providers Care Wooden Shade Hardware Installer Name Role Phone Gilbert Calloway MD Primary Care Provide r Reason for Visit * Reason Onset Date Comments Advice 10/12/2023 Encounter Details Date Type Department Care Team (Late st Contact Info) Description 10/12/2023 Telephone Family Medicine [address] [place] [phone] Gilbert Calloway MD [address] [place] [address] [place] [phone] Advice Allergies Active Allergy Reactions Criticality Noted Date Comments Ergotamine 03/01/2000 vomit Nitroglycerin 03/14/2007 vomitting documented as of this encounter (statuses as of 10/15/2023) Medications Medication Sig Dispensed Refills Start Date End Date Status Levothyroxine Sodium 100 MCG Oral Tablet (Levoxyl) Take 1 Tablet by mouth in the morning. (at least 30 min prior to breakfast or other meds). 90 Tablet 3 11/20/2022 Active Benzonatate 100 MG Oral Capsule (Tessalon Perles)Indications:V [...] at bedtime. 90 Tablet 1 10/12/2023 Active documented as of this encounter (statuses as of 10/15/2023) Active Problems Problem Noted Date Diagnosed Date [...] as of this encounter (statuses as of 10/15/2023) Resolved Problems Problem Noted Date Diagnosed Date [...] BP at goal at metoprolol Acquired hypothyroidism 01/19/20163 Gastric ulcer 06/30/2014 06/26/2017 Overview: hgb 7.4 [...] as of this encounter (statuses as of 10/15/2023) Immunizations Name Administration Dates Next Due COVID-19 [...] encounter Miscellaneous Notes * Telephone Encounter - Codie Mark LPN - 10/15/2023 4:02 PM EDT Called and spoke with pt. Pt states she is feeling better * Telephone Encounter - Eunice Simon OSA - 10/12/2023 4:08 PM EDT Patient is calling to let the DrNato know that her symptoms have gotten worse since talking to the dr briefly this morning. She is experiencing body aches, congested, and running nose, sore throat. Can the prescribe anything? documented in this encounter Plan of Treatment Upcoming Encounters Date Type Department Care Team (Late st Contact Info) Description 10/26/2023 10:00 AM EDT Home Visit [facility] [place], [address] [place] [address] Lana Lieberman, RN [address] [place] [address] 04/04/2024 2:40 PM EST Office Visit Nephrology, [facility] [address] [facility] [place] [address] Tirso Shah MD [address] [facility] [address] [place] [address] 06/30/2024 10:00 AM EDT Office Visit Family Medicine [address] [phone] Gilbert Calloway MD [address] [place] [address] [place] [address] Health Maintenance Due Date Last Done Comments DTaP,Tdap,and Td Vaccines (1 - Tdap) 11/15/1957 Adult Wellness Visit 2002 Depression Monitoring 09/29/2020 09/30/2019 COVID-19 Vaccine ( - 2022-24 season) 2022 01/04/2021, 04/19/2020, 04/04/2020, Additional history exists Albumin/Creatinine Ratio 07/28/2023 023, 06/09/2020, 03/13/2019, Additional history exists TSH 07/28/2023 07/27/2022, 05/21, 06/09/2020, Additional history exists CKD PHOS USE SMARTSET 45220 10/05/202309/19, 06/08/2021, 09/07/2020, Additional history exists Influenza Vaccine (FLU shot) (#1) 2023 01/10/2022, 11/18/2020, 12/06/2019, Additional history exists CKD HGB USE SMARTSET 40964 03/06/202403/06, 03/06/2023, 10/04/2022, Additional history exists Pneumococcal [...] filedocumented as of this encounter Care Teams Wooden Shade Hardware Installer Relationship Specialty Start Date End Date Gilbert Calloway MD [address] [place] [address] [place] [address] PCP - General Family Medicine 07/30/23 documented as of this encounter
--- OUTSIDE RECORDS SUMMARY | 2023-11-03 17:36 | External Medical Summary ---
Author Name Unknown Address Unknown Organization : Laboratory Report Ordering Provider Test Date Status GLEN JOLLEY 10/12/2023 11:40:37 Ramila l Observation Date Value Abnormality Reference (Units ) Status Glucose Point of Care 10/12/2023 11:40:37 128 Above high normal 70-120 (mg/dL) Final Performing Location
--- OUTSIDE RECORDS SUMMARY | 2023-11-03 17:37 | External Medical Summary | Summary of Care ---
Author Name Unknown Organization [facility] Address [address] [place] [address] Phone [phone] Care Team Providers Care Road Engineer Name Role Phone Gilbert Calloway MD Primary Care Provide r Reason for Visit * Reason Onset Date Comments Medication Refill 09/14/2023 Encounter Details Date Type Department Care Team (Late st Contact Info) Description 09/14/2023 Refill Family Medicine [address] [place] [phone] Gilbert Calloway MD [address] [place] [address] [place] [address] Allergies Active Allergy Reactions Criticality Noted Date Comments Ergotamine 03/01/2000 vomit Nitroglycerin 03/14/2007 vomitting documented as of this encounter (statuses as of 09/14/2023) Medications Medication Sig Dispensed Refills Start Date [...] for Cough. 30 Capsule 1 01/15/2023 Active Losartan Potassium 25 MG Oral Tablet (Cozaar)Indications: Hypertensive heart and kidney disease with chronic diastolic congestive heart failure and stage 3b chronic kidney disease (HCC) Take 1 Tablet by mouth in the morning. 90 Tablet 04/05/2023 Active Acetaminophen 500 MG Oral Tablet (Tylenol)Indications [...] 06/26/2023 Active Meloxicam 7.5 MG Oral Tablet (Mobic)Indications:B ilateral shoulder region arthritis Take 1 Tablet by mouth in the morning. for pain.. 30 Tablet 07/20/2023 Active Gabapentin 300 MG Oral Capsule (Neurontin)Indicatio ns:DDD (degenerative disc disease), lumbar take 1 capsule three times daily 90 Capsule 07/26/2023 Active traZODone HCl 150 MG Oral Tablet (Desyrel)Indications :Persistent insomnia One at bedtime 30 Tablet 07/30/2023 [...] for Anxiety. 30 Tablet 1 09/14/2023 Active hydrOXYzine HCl 10 MG Oral Tablet (Atarax) TAKE ONE TABLET BY MOUTH EVERY DAY NEEDED FOR anxiety 30 Tablet 1 07/04/2023 4 Discontinue d(Refill) documented as of this encounter (statuses as of 09/14/2023) Active Problems Problem Noted Date Diagnosed Date [...] BMP Pro-BNP Her weights are stable on [facility]. She appears euvolemic today. Spondylosis of lumbar [...] her pain concerns. She is aware [facility] does not manage chronic pain meds. With her history of confusion, would recommend against use of narcotic medication. Mild aortic stenosis 07/27/2021 Last Assessment & Plan: Following with cardiology Aortocoronary bypass status 03/09/2021 Chronic atrial fibrillation 03/01/2021 Overview: new onset, [facility] on apixaban Last Assessment & [...] as of this encounter (statuses as of 09/14/2023) Resolved Problems Problem Noted Date Diagnosed Date [...] ulcer 06/30/2014 06/26/2017 Overview: hgb 7.4 admitted [facility] CKD (chronic kidney disease) stage [...] as of this encounter (statuses as of 09/14/2023) Immunizations Name Administration Dates Next Due COVID-19 [...] Telephone Encounter - Gilbert Calloway MD - 09/14/2023 1:37 PM EDT Signed Prescriptions: Disp Refills hydrOXYzine HCl 10 MG Oral Tablet (Atarax) 30 Tab*1 Sig: Take 1 Tablet by mouth every 8 hours as needed for Anxiety. Authorizing Provider: GILBERT CALLOWAY * Telephone Encounter - Maye Smith, lactation coordinator - 09/14/2023 1:27 PM EDT Did you pend patient's preferred pharmacy and medication before forwarding?yes Pharmacy: [facility], [address] [place] Pending Prescriptions: Disp Refills hydrOXYzine HCl 10 MG Oral Tablet (Atarax)30 Tab*1 Last Visit: 05/29/2023 (in office), 01/10/2023 (telemedicine) Next Visit: 10/12/2023 If no future appointments scheduled, and last appointment is greater than a year ago, please schedule patient for a follow-up appointment Last date the medication was ordered: 07/04/2023 Is this request for a controlled substance?No [...] PM LDLDIRECT 89 02/22/2012 02:40 PM ALT 13 03/06/2023 02:29 PM ALT 26 06/16/2019 10:39 AM HGBA1C 5.7 (A) 01/25/2018 12:00 AM HGBA1C 5.2 11/04/2013 12:09 PM documented in this encounter Plan of Treatment Upcoming Encounters Date Type Department Care Team (Late st Contact Info) Description 09/25/2023 8:30 AM EDT [facility] [place], [facility] [address] [facility] [place] [address] Lana Lieberman, KHARI [address] [facility] [place] [address] 10/12/2023 10:40 AM EDT Office Visit Family Medicine [address] [place] [phone] Gilbert Calloway MD [address] [place] [address] [place] [address] 04/04/2024 2:40 PM EST Office Visit NephrologyCaroline [address] [place] [address] Tirso Shah MD [address] [place] [address] Health Maintenance Due Date Last Done Comments DTaP,Tdap,and Td Vaccines (1 - Tdap) 11/15/1957 Depression Monitoring 09/29/2020 09/30/2019 COVID-19 Vaccine (5 - 2022- season) 2022 04/19/2020, 04/04/2020, 03/22/2020, Additional history exists Albumin/Creatinine Ratio 07/28/2023 023, 06/09/2020, 03/13/2019, Additional history exists TSH 07/28/2023 07/27/2022, 05/21, 06/09/2020, Additional history exists CKD PHOS USE SMARTSET 59533 10/05/202309/19, 06/08/2021, 09/07/2020, Additional history exists Influenza Vaccine (FLU shot) (#1) 2023 01/10/2022, 11/18/2020, 12/06/2019, Additional history exists CKD HGB USE SMARTSET 84925 03/06/202403/06, 03/06/2023, 10/04/2022, Additional history exists Pneumococcal [...] filedocumented as of this encounter Care Teams Road Engineer Relationship Specialty Start Date End Date Gilbert Calloway MD [address] [place] [address] [place] [address] PCP - General Family Medicine 07/30/23 documented as of this encounter
--- OUTSIDE RECORDS SUMMARY | 2023-11-03 17:37 | External Medical Summary | Summary of Care ---
Author Name Unknown Organization [facility] Address [address] [facility] [place] [address] Phone [phone] Care Team Providers Care Power Operator Name Role Phone Gilbert Calloway MD Primary Care Provide r Reason for Visit * Reason Onset Date Comments [facility]: Maintenance 09/10/2023 Encounter Details Date Type Department Care Team (Late st Contact Info) Description 09/10/2023 1:00 PM EDT Scheduled Telephone [facility], [facility] [address] [facility] [place] [address] Coordinator, [facility] [address] [facility] [place] [address] Allergies Active Allergy Reactions Criticality Noted Date Comments Ergotamine 03/01/2000 vomit Nitroglycerin 03/14/2007 vomitting documented as of this encounter (statuses as of 09/10/2023) Medications Medication Sig Dispensed Refills Start Date [...] 04/05/2023 Active Acetaminophen 500 MG Oral Tablet (Tylenol)Indications: [...] IN THE MORNING 90 Tablet 06/26/2023 Active hydrOXYzine HCl 10 MG Oral Tablet (Atarax) TAKE ONE TABLET BY MOUTH EVERY DAY NEEDED FOR anxiety 30 Tablet 07/04/2023 Active Meloxicam 7.5 MG Oral Tablet (Mobic)Indications:Bi [...] TWICE DAILY 180 Tablet 3 08/27/2023 Active documented as of this encounter (statuses as of 09/10/2023) Active Problems Problem Noted Date Diagnosed Date [...] atrial fibrillation 03/01/2021 Overview: new onset, [facility] on apixaban Last Assessment & Plan: Her [...] joint replacement status 09/09/2002 Atherosclerosis of [place] co ronary artery of [place] heart without angina pectoris Last Assessment & Plan: Stable no angina -continue rosuvastatin, metopropolol, Anxiety state Last Assessment & Plan: Stable on buspar, Primary hypertension Gastroesophageal reflux dise ase with esophagitis without hemorrhage Last Assessment & Plan: symptoms controlled on pantoprazole Scoliosis of lumbar spine Mixed incontinence urge and stress (male)(female ) documented as of this encounter (statuses as of 09/10/2023) Resolved Problems Problem Noted Date Diagnosed Date [...] 06/30/2014 06/26/2017 Overview: hgb 7.4 admitted [facility] CKD (chronic kidney disease) stage 3, GFR [...] as of this encounter (statuses as of 09/10/2023) Immunizations Name Administration Dates Next Due COVID-19 [...] No 03/07/2023 Does the household have a peak behavioral health serviceslar source of income? (Household - for ages [...] Telephone Encounter - Darling Roe RN - 09/10/2023 8:58 AM EDT Images from the original note were not included. [facility] Telephonic Nurse Follow-Up Call [facility] Subprogram: Focused Care Management (3-9 months) Follow Up Call Type: Routine follow up call / Status Check Acute issue requiring follow-up call: Remote Patient Monitoring Trigger Call placed to the pt. No answer. LMOM for callback Objective: 09/04/2023 2:01 PM 08/06/2023 2:13 PM 07/04/2023 1:17 PM 07/03/2023 1:06 PM 06/21/2023 2:00 PM VITALS ACROSS ENCOUNTERS BP 130/68 124/82 132/84 160/80 98/56 Pulse 68 86 78 76 Remote Patient Monitoring: AMC Scale: see below Oxygen Needs: NO supplemental oxygen needs identified DME Needs: NO DME needs identified Medications: New medication(s) added: Instructed to initiate prn Torsemide on 09/03, was not completed 09/04 at , Did confirm RX was picked up 09/04 Subjective: Condition Status: [facility] Pt LMOM for callback Current Concerns: Disposition: Follow up call scheduled for tomorrow with BUS AND TROLLEY DISPATCHER Improvement Specialist Future Visits Scheduled: Future Appointments-next 60 days Date/Time Provider Specialty Dept Phone 09/10/2023 1:00 PM Coordinator, Ivan Garner [facility] [phone] 09/25/2023 8:30 AM Lana Lieberman, RN [facility] [phone] 10/12/2023 10:40 AM (Arrive by 10:25 AM) Gilbert Calloway MD Family Medicine [phone] 04/04/2024 2:40 PM (Arrive by 2:25 PM) Tirso Shah MD Nephrology [phone] Darling Roe, KHARI documented in this encounter Plan of Treatment Upcoming Encounters Date Type Department Care Team (Late st Contact Info) Description 09/11/2023 11:30 AM EDT Scheduled Telephone [facility], [facility] [address] [place] [address] Coordinator, Ivan Garner [address] [place] [address] 09/25/2023 8:30 AM EDT [facility], [facility] [address] [place] [address] Lana Lieberman, KHARI 132 [facility] [place] [address] 10/12/2023 10:40 AM EDT Office Visit Family Medicine [address] [place] [phone] Gilbert Calloway MD [address] [place] [address] [place] [address] 04/04/2024 2:40 PM EST Office Visit Nephrology, [address] [place] [address] Tirso Shah MD [address] [place] [address] Health Maintenance Due Date Last Done Comments DTaP,Tdap,and Td Vaccines (1 - Tdap) 11/15/1957 Depression Monitoring 09/29/2020 09/30/2019 COVID-19 Vaccine (5 - season) 2022 04/19/2020, 04/04/2020, 03/22/2020, Additional history exists Albumin/Creatinine Ratio 07/28/2023 023, 06/09/2020, 03/13/2019, Additional history exists TSH 07/28/2023 07/27/2022, 05/21, 06/09/2020, Additional history exists CKD PHOS USE SMARTSET 59360 10/05/202309/19, 06/08/2021, 09/07/2020, Additional history exists Influenza Vaccine (FLU shot) (#1) 2023 01/10/2022, 11/18/2020, 12/06/2019, Additional history exists CKD HGB USE SMARTSET 05241 03/06/202403/06, 03/06/2023, 10/04/2022, Additional history exists Pneumococcal [...] filedocumented as of this encounter Care Teams Power Operator Relationship Specialty Start Date End Date Gilbert Calloway MD [address] [place] [address] [place] [address] PCP - General Family Medicine 07/30/23 documented as of this encounter
--- OUTSIDE RECORDS SUMMARY | 2023-11-03 17:37 | External Medical Summary | Summary of Care ---
Author Name Unknown Organization [facility] Address [address] [place] [address] Phone [phone] Care Team Providers Care Carburetor Specialist Name Role Phone Gilbert Calloway MD Primary Care Provide r Reason for Visit * Reason Comments [facility]: Maintenance Encounter Details Date Type Department Care Team (Late st Contact Info) Description 09/04/2023 4:00 PM EDT [facility], [facility] [place] [address] Lana Lieberman, KHARI [address] [place] [address] Allergies Active Allergy Reactions Criticality Noted Date Comments Ergotamine 03/01/2000 vomit Nitroglycerin 03/14/2007 vomitting documented as of this encounter (statuses as of 09/05/2023) Medications Medication Sig Dispensed Refills Start Date [...] as of this encounter (statuses as of 09/05/2023) Active Problems Problem Noted Date Diagnosed Date 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 Last Assessment & Plan: Stable no angina -continue rosuvastatin, metopropolol, Anxiety state Last Assessment & Plan: Stable on buspar, Primary hypertension Gastroesophageal reflux dise ase with esophagitis without hemorrhage Last Assessment & Plan: symptoms controlled on pantoprazole Scoliosis of lumbar spine Mixed incontinence urge and stress (male)(female ) documented as of this encounter (statuses as of 09/05/2023) Resolved Problems Problem Noted Date Diagnosed Date [...] as of this encounter (statuses as of 09/05/2023) Immunizations Name Administration Dates Next Due COVID-19 [...] Sign Reading Time Taken Comments Blood Pressure 130/68 09/04/2023 2:01 PM EDT Pulse 68 09/04/2023 2:01 PM EDT Temperature 36.7 C (98.1 F) 09/04/2023 2:01 PM ED T Respiratory Rate 18 09/04/2023 2:01 PM EDT Oxygen Saturation 92% 09/04/2023 2:01 PM EDT Inhaled Oxygen Concentration - - Weight - - Height - - Body Mass Index - - documented in this encounter Progress Notes * Lana Lieberman RN - 09/04/2023 1:14 PM EDT Images from the original note were not included. [facility] Back Digger Operator Visit Date: 09/04/2023 Time: 1:15 PM Name: Zoya Howard : 1938 Current Concerns: Patient seen for follow up- Weight trigger today- per documentation- patient to take dose of Torsemide today. Upon arrival- patient reports she does not Torsemide in the home. Call to pharmacy- script is ready to merchandise pickup/receiving associate. This nurse will merchandise pickup/receiving associate and deliver to patient. VS wnl Lungs clear but diminished Sob with exertion- baseline + abdominal bloating- states her protective underwear were snug around her waist No LE edema Voiding without difficulty Bowels wnl- per report Appetite good Taking fluids well Problems/Symptoms: Review of Systems Constitutional: Negative. HENT: Negative. Respiratory: Positive for shortness of breath. Cardiovascular: Negative. Gastrointestinal: Positive for abdominal distention. Genitourinary: Negative. Musculoskeletal: Positive for gait problem. Skin: Negative. Hematological: Negative. Psychiatric/Behavioral: Negative. Physical Exam: BP 130/68 (BP Site: Left Arm, BP Position: Sitting, BP Cuff Size: Regular) | Pulse 68 | Temp 36.7 C (98.1 F) (Tympanic) | Resp 18 | SpO2 92% Pain 0 Physical Exam Constitutional: Appearance: Normal appearance. Cardiovascular: Rate and Rhythm: Normal rate and regular rhythm. Pulses: Normal pulses. Pulmonary: Effort: Pulmonary effort is normal. Breath sounds: Normal breath sounds. Abdominal: General: Bowel sounds are normal. Palpations: Abdomen is soft. Musculoskeletal: General: Normal range of motion. Skin: Capillary Refill: Capillary refill takes 2 to 3 seconds. Neurological: General: No focal deficit present. Mental Status: She is alert and oriented to person, place, and time. Psychiatric: Mood and Affect: Mood normal. Behavior: Behavior normal. [facility]-10 Completed this Visit: No. No falls since last visit Treatment/Plan: Low na diet Elevate ble prn edema AMC scales daily Continue medications as prescribed Keep all upcoming MD appointment Fall precautions Fluids encouraged RN CM follow up in 2 weeks. Home Interventions Provided: Reinforced current Plan of Care, including self-management and medication regimen Patient's Goals of Care: Stay out of the hospital Stay current with medication regimen every single day Patient's 'Red Flags': N/V not relieved by Zofran Weight increase 2-3 lbs/24 hours SOB above baseline Patient Needs to Remember: Call [facility] with any medical concerns/ red flags Referrals Needed: N/a Follow Up: Is there cellular connectivity/connectivity in the home? Yes Does the patient have internet in the home? No Patient encouraged to call the intake phone number for all urgent but not emergent issues. Scheduled to follow up with patient in 2 weeks. Lana Schuler RN 09/04/2023 1:15 PM documented in this encounter Plan of Treatment Upcoming Encounters Date Type Department Care Team (Late st Contact Info) Description 09/05/2023 3:00 PM EDT Scheduled Telephone [facility], [place] [address] [place] [address] Coordinator, [facility] [address] [place] [address] 09/25/2023 8:30 AM EDT Home Visit [facility], [facility] 132 [facility] [place] [address] Lnaa Lieberman RN 132 [facility] [place] [address] 10/12/2023 10:40 AM EDT Office Visit Family Medicine [address] [phone] Gilbert Calloway MD [address] [place] [address] [place] [address] 04/04/2024 2:40 PM EST Office Visit Nephrology, [facility] [address] [facility] [place] [address] Tirso Shah MD 200 [facility] [place] [address] Health Maintenance Due Date Last Done Comments DTaP,Tdap,and Td Vaccines (1 - Tdap) 11/15/1957 Depression Monitoring 09/29/2020 09/30/2019 COVID-19 Vaccine (5 - 2022-24 season) 2022 04/19/2020, 04/04/2020, 03/22/2020, Additional history exists Albumin/Creatinine Ratio 07/28/2023 023, 06/09/2020, 03/13/2019, Additional history exists TSH 07/28/2023 07/27/2022, 05/21, 06/09/2020, Additional history exists CKD PHOS USE SMARTSET 60552 10/05/202309/19, 06/08/2021, 09/07/2020, Additional history exists Influenza Vaccine (FLU shot) (#1) 2023 01/10/2022, 11/18/2020, 12/06/2019, Additional history exists CKD HGB USE SMARTSET 48967 03/06/202403/06, 03/06/2023, 10/04/2022, Additional history exists Pneumococcal [...] filedocumented as of this encounter Care Teams Carburetor Specialist Relationship Specialty Start Date End Date Gilbert Calloway MD [address] [place] [address] [place] [phone] PCP - General Family Medicine 07/30/23 documented as of this encounter
--- OUTSIDE RECORDS SUMMARY | 2023-11-03 17:37 | External Medical Summary | Summary of Care ---
Author Name Unknown Organization [facility] Address [address] [place] [facility] [place] [place] [address] Phone [phone] Care Team Providers Care Steam Conditioner Operator Name Role Phone Gilbert Calloway MD Primary Care Provide r Reason for Visit * Reason Onset Date Comments [facility]: Maintenance 09/08/2023 Encounter Details Date Type Department Care Team (Late st Contact Info) Description 09/08/2023 10:00 AM EDT Scheduled Telephone [facility], [facility] 132 [facility] [place] [address] [facility], Nurse [address] [place] [address] Allergies Active Allergy Reactions Criticality Noted Date Comments Ergotamine 03/01/2000 vomit Nitroglycerin 03/14/2007 vomitting documented as of this encounter (statuses as of 09/08/2023) Medications Medication Sig Dispensed Refills Start Date [...] as of this encounter (statuses as of 09/08/2023) Active Problems Problem Noted Date Diagnosed Date [...] joint replacement status 09/09/2002 Atherosclerosis of [place] co ronary artery of [place] heart without angina pectoris Last Assessment & Plan: Stable no angina -continue rosuvastatin, metopropolol, Anxiety state Last Assessment & Plan: Stable on buspar, Primary hypertension Gastroesophageal reflux dise ase with esophagitis without hemorrhage Last Assessment & Plan: symptoms controlled on pantoprazole Scoliosis of lumbar spine Mixed incontinence urge and stress (male)(female ) documented as of this encounter (statuses as of 09/08/2023) Resolved Problems Problem Noted Date Diagnosed Date [...] as of this encounter (statuses as of 09/08/2023) Immunizations Name Administration Dates Next Due COVID-19 [...] No 03/07/2023 Does the household have a [facility] source [facility] income? (Household - for [...] Telephone Encounter - Jinny Mena RN - 09/08/2023 1:17 PM EDT On for follow up call tomorrow QUAN Ferrell Tumbling Barrel Painter [facility] * Telephone Encounter - Sheryl Davila LPN - 09/08/2023 10:01 AM EDT Images from the original note were not included. [facility] Telephonic Nurse Follow-Up Call [facility] Subprogram: Focused Care Management (3-9 months) Follow Up Call Type: 24 hour follow up Acute issue requiring follow-up call: Remote Patient Monitoring Trigger Objective: 09/04/2023 2:01 PM 08/06/2023 2:13 PM 07/04/2023 1:17 PM 07/03/2023 1:06 PM 06/21/2023 2:00 PM VITALS ACROSS ENCOUNTERS BP 130/68 124/82 132/84 160/80 98/56 Pulse 68 86 78 76 Remote Patient Monitoring: AMC Scale: Wt 162 lbs Oxygen Needs: NO supplemental oxygen needs identified DME Needs: NO DME needs identified Medications: Dose adjustment(s) made: Instructed to initiate prn Torsemide on 09/03, was not completed 09/04 at , Did confirm RX was picked up 09/04 Subjective: LM requesting CB, Call to pharmacy confirmed Torsemide was picked up Disposition: Weekend call scheduled Future Visits Scheduled: Future Appointments-next 60 days Date/Time Provider Specialty Dept Phone 09/25/2023 8:30 AM Lana Lieberman, KHARI [facility] [phone] 10/12/2023 10:40 AM (Arrive by 10:25 AM) Gilbert Calloway MD Family Medicine [phone] 04/04/2024 2:40 PM (Arrive by 2:25 PM) Tirso Shah MD Nephrology [phone] Sheryl Davila LPN documented in this encounter Plan of Treatment Upcoming Encounters Date Type Department Care Team (Late st Contact Info) Description 09/09/2023 10:00 AM EDT Scheduled Telephone [facility] [address] [facility] [place] [address] [facility], Nurse [facility] [address] [facility] [place] [address] 09/25/2023 8:30 AM EDT [facility] [address] [facility] [place] [address] Lana Lieberman RN 132 [facility] [place] [address] 10/12/2023 10:40 AM EDT Office Visit Family Medicine [address] [place] [phone] Gilbert Calloway MD [address] [place] [address] [place] [address] 04/04/2024 2:40 PM EST Office Visit Nephrology, [facility] Sparks [address] [place] [address] Tirso Shah MD [address] [place] [address] Health Maintenance Due Date Last Done Comments DTaP,Tdap,and Td Vaccines (1 - Tdap) 11/15/1957 Depression Monitoring 09/29/2020 09/30/2019 COVID-19 Vaccine (5 - 2022- season) 2022 04/19/2020, 04/04/2020, 03/22/2020, Additional history exists Albumin/Creatinine Ratio 07/28/2023 023, 06/09/2020, 03/13/2019, Additional history exists TSH 07/28/2023 07/27/2022, 05/21, 06/09/2020, Additional history exists CKD PHOS USE SMARTSET 88237 10/05/202309/19, 06/08/2021, 09/07/2020, Additional history exists Influenza Vaccine (FLU shot) (#1) 2023 01/10/2022, 11/18/2020, 12/06/2019, Additional history exists CKD HGB USE SMARTSET 71439 03/06/202403/06, 03/06/2023, 10/04/2022, Additional history exists Pneumococcal [...] filedocumented as of this encounter Care Teams Steam Conditioner Operator Relationship Specialty Start Date End Date Gilbert Calloway MD [address] [place] [address] [place] [phone] PCP - General Family Medicine 07/30/23 documented as of this encounter
--- OUTSIDE RECORDS SUMMARY | 2023-11-03 17:37 | External Medical Summary | Summary of Care ---
Author Name Unknown Organization [facility] Address [address] [facility] [place] [address] Phone [phone] Care Team Providers Care Shopping Centre Manager Name Role Phone Gilbert Calloway MD Primary Care Provide r Reason for Visit * Reason Onset Date Comments [facility]: Maintenance 09/10/2023 Encounter Details Date Type Department Care Team (Late st Contact Info) Description 09/10/2023 1:00 PM EDT Scheduled Telephone [facility], [facility] 132 [facility] [place] [address] Coordinator, [facility] 132 [facility] [place] [address] Allergies Active Allergy Reactions Criticality Noted Date [...] discuss her pain concerns. She is aware [facility] does not manage chronic pain meds. With her history of confusion, would recommend against use of narcotic medication. Mild aortic stenosis 07/27/2021 Last Assessment & Plan: Following with cardiology Aortocoronary bypass status 03/09/2021 Chronic atrial fibrillation 03/01/2021 Overview: new onset, [facility] on apixaban Last Assessment & [...] 06/30/2014 06/26/2017 Overview: hgb 7.[address] [facility] CKD (chronic kidney disease) stage [...] No 03/07/2023 Does the household have a [facility] source [facility]? (Household - for [...] Telephone Encounter - Lindsay Giordano RN - 09/10/2023 1:02 PM EDT Images from the original note were not included. [facility] Telephonic Nurse Follow-Up Call [facility] Subprogram: Focused Care Management (3-9 months) Follow Up Call Type: Routine follow up call / Status Check Acute issue requiring follow-up call: Heart Failure Exacerbation Objective: 09/04/2023 2:01 PM 08/06/2023 2:13 PM 07/04/2023 1:17 PM 07/03/2023 1:06 PM 06/21/2023 2:00 PM VITALS ACROSS ENCOUNTERS BP 130/68 124/82 132/84 160/80 98/56 Pulse 68 86 78 76 Remote Patient Monitoring: AMC Scale: see below Oxygen Needs: NO supplemental oxygen needs identified DME Needs: NO DME needs identified Medications: New medication(s) added: PRN torsemide Subjective: Condition Status: Worsening of symptoms Current Concerns: Patient returned missed call Patient reports + BROUSSARD today and LLE edema,and some weakness today States she may have over did it around the house Patient denies CP,wheezing, SOB when sitting Patient urinating WNL Denies high salt intake Was unaware of fluid restriction but stated she only drinks 16oz fluid/day Today she has only had 2 cups of coffee She has PRN torsemide. She did not take one today. I advised her to take a torsemide tablet ( as the directions states as needed for swelling) Advised her to drink water up to fluid restriction to prevent dehydration Elevate legs Rest for the remainder of the day Disposition: [facility] Future Visits Scheduled: Future Appointments-next 60 days Date/Time Provider Specialty Dept Phone 09/11/2023 11:30 AM Coordinator, Manuel Alex Garner [facility] [phone] 09/25/2023 8:30 AM Lana Lieberman RN [facility] [phone] 10/12/2023 10:40 AM (Arrive by 10:25 AM) Gilbert Calloway MD Family Medicine [phone] 04/04/2024 2:40 PM (Arrive by 2:25 PM) Tirso Shah MD Nephrology [phone] Lindsay Giordano RN * Telephone Encounter - Darling Roe RN - 09/10/2023 8:58 AM EDT Images from the original note were not included. [facility] Telephonic Nurse Follow-Up Call [facility] Subprogram: Focused Care Management (3-9 months) [...] was picked up 09/04 Subjective: Condition Status: MDC Pt LMOM for callback Current Concerns: Disposition: Follow up call scheduled for tomorrow with CALL CENTER RECRUITER Rn Lpn Cna Future Visits Scheduled: Future Appointments-next 60 days Date/Time Provider Specialty Dept Phone 09/10/2023 1:00 PM Coordinator, Ivan Garner [facility] [phone] 09/25/2023 8:30 AM Lana Lieberman, RN [facility] [phone] 10/12/2023 10:40 AM (Arrive by 10:25 AM) Gilbert Calloway MD Family Medicine [phone] 04/04/2024 2:40 PM (Arrive by 2:25 PM) Tirso Shah MD Nephrology [phone] Darling Roe RN documented in this encounter Plan of Treatment Upcoming Encounters Date Type Department Care Team (Late st Contact Info) Description 09/11/2023 11:30 AM EDT Scheduled Telephone [facility] [place], [facility] [address] [place] [address] Coordinator, Ivan Garner [address] [place] [address] 09/25/2023 8:30 AM EDT Home Visit [facility] [place], [facility] [address] [place] [address] Lana Lieberman, RN [address] [place] [address] 10/12/2023 10:40 AM EDT Office Visit Family Medicine [address] [place] [phone] Gilbert Calloway MD [address] [place] [address] [place] [address] 04/04/2024 2:40 PM EST Office Visit Nephrology, [facility]ks [address] [facility] [place] [address] Tirso Shah MD 200 [facility] [place] [address] Health Maintenance Due Date Last Done Comments DTaP,Tdap,and Td Vaccines (1 - Tdap) 11/15/1957 Depression Monitoring 09/29/2020 09/30/2019 COVID-19 Vaccine (5 - 2022-24 season) 2022 04/19/2020, 04/04/2020, 03/22/2020, Additional history exists Albumin/Creatinine Ratio 07/28/2023 023, 06/09/2020, 03/13/2019, Additional history exists TSH 07/28/2023 07/27/2022, 05/21, 06/09/2020, Additional history exists CKD PHOS USE SMARTSET 61836 10/05/202309/19, 06/08/2021, 09/07/2020, Additional history exists Influenza Vaccine (FLU shot) (#1) 2023 01/10/2022, 11/18/2020, 12/06/2019, Additional history exists CKD HGB USE SMARTSET 16912 03/06/202403/06, 03/06/2023, 10/04/2022, Additional history exists Pneumococcal [...] filedocumented as of this encounter Care Teams Shopping Centre Manager Relationship Specialty Start Date End Date Gilbert Calloway MD [address] [place] [address] [place] [address] PCP - General Family Medicine 07/30/23 documented as of this encounter
--- OUTSIDE RECORDS SUMMARY | 2023-11-03 17:37 | External Medical Summary | Summary of Care ---
Author Name Unknown Organization [facility] Address [address] [facility] [address] Phone [phone] Care Team Providers Care Dye Winch Operator Name Role Phone Gilbert Calloway MD Primary Care Provide r Reason for Visit * Reason Onset Date Comments [facility]: Maintenance 09/11/2023 Encounter Details Date Type Department Care Team (Late st Contact Info) Description 09/11/2023 11:30 AM EDT Scheduled Telephone [facility], [facility] 132 [facility] [place] [address] Coordinator, [facility] 132 [facility] [place] [address] Allergies Active Allergy Reactions Criticality Noted Date Comments Ergotamine 03/01/2000 vomit Nitroglycerin 03/14/2007 vomitting documented as of this encounter (statuses as of 09/11/2023) Medications Medication Sig Dispensed Refills Start Date [...] as of this encounter (statuses as of 09/11/2023) Active Problems Problem Noted Date Diagnosed Date 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[place] co ronary artery of [place] heart without angina pectoris Last Assessment & Plan: Stable no angina -continue rosuvastatin, metopropolol, Anxiety state Last Assessment & Plan: Stable on buspar, Primary hypertension Gastroesophageal reflux dise ase with esophagitis without hemorrhage Last Assessment & Plan: symptoms controlled on pantoprazole Scoliosis of lumbar spine Mixed incontinence urge and stress (male)(female ) documented as of this encounter (statuses as of 09/11/2023) Resolved Problems Problem Noted Date Diagnosed Date [...] as of this encounter (statuses as of 09/11/2023) Immunizations Name Administration Dates Next Due COVID-19 [...] No 03/07/2023 Does the household have a [facility] source [facility]? (Household - [...] Telephone Encounter - Darling Roe RN - 09/11/2023 10:46 AM EDT Images from the original note were not included. [facility] Telephonic Nurse Follow-Up Call [facility] Subprogram: Focused Care Management (3-9 months) Follow Up Call Type: Routine follow up call / Status Check Acute issue requiring follow-up call: Remote Patient Monitoring Trigger Objective: 09/04/2023 2:01 PM 08/06/2023 2:13 PM 07/04/2023 1:17 PM 07/03/2023 1:06 PM 06/21/2023 2:00 PM VITALS ACROSS ENCOUNTERS BP 130/68 124/82 132/84 160/80 98/56 Pulse 68 86 78 76 Remote Patient Monitoring: AMC Scale: see below Dry weight 157-158 lbs Oxygen Needs: NO supplemental oxygen needs identified DME Needs: NO DME needs identified Medications: New medication(s) added: Torsemide PRN - took dose yesterday Subjective: Condition Status: Improvement in symptoms but not at baseline Current Concerns: Pt reports she lost 2 lbs overnight on PRN Torsemide. Feeling better. Edema to LE resolved. Still having some increased SOB on exertion but ok at rest. No pulse ox available. Pt denies Chest pain. Denies abd bloating. States that the torsemide makes her urinate so much she is almost incontinent. Asking if she should take another dose, but not today due to having appts to go to. Should she take another tomorrow. Advised [facility] would call to reassess prior to determination if further PRN Torsemide is needed. Reviewed HF symptom monitoring: -Weigh self daily [...] at night -increased fatigue or vertigo Disposition: Follow up call scheduled for tomorrow with RN PEDIATRIC ICUDerrick GarnerCertified Flex Endoscope Reprocessor Future Visits Scheduled: Future Appointments-next 60 days Date/Time Provider Specialty Dept Phone 09/11/2023 11:30 AM Coordinator, Ivan Garner [facility] [phone] 09/25/2023 8:30 AM Lana Lieberman RN [facility] [phone] 10/12/2023 10:40 AM (Arrive by 10:25 AM) Gilbert Calloway MD Family Medicine [phone] 04/04/2024 2:40 PM (Arrive by 2:25 PM) Tirso Shah MD Nephrology [phone] Darling Roe, RN documented in this encounter Plan of Treatment Upcoming Encounters Date Type Department Care Team (Late st Contact Info) Description 09/12/2023 12:30 PM EDT Scheduled Telephone [facility] [place], [facility] [address] [place] [place] [address] Coordinator, Ivan Garner [address] [place] [address] 09/25/2023 8:30 AM EDT [facility] [place], [place] [address] [place] [address] Lana Lieberman, KHARI [address] [place] [place] [address] 10/12/2023 10:40 AM EDT Office Visit Family Medicine [address] [place] [phone] Gilbert Calloway MD [address] [place] [address] [place] [address] 04/04/2024 2:40 PM EST Office Visit Nephrology, [facility] 200 [facility] [place] [address] Tirso Shah MD 200 [facility] [place] [address] Health Maintenance Due Date Last Done Comments DTaP,Tdap,and Td Vaccines (1 - Tdap) 11/15/1957 Depression Monitoring 09/29/2020 09/30/2019 COVID-19 Vaccine (5 - 2022- season) 2022 04/19/2020, 04/04/2020, 03/22/2020, Additional history exists Albumin/Creatinine Ratio 07/28/2023 023, 06/09/2020, 03/13/2019, Additional history exists TSH 07/28/2023 07/27/2022, 05/21, 06/09/2020, Additional history exists CKD PHOS USE SMARTSET 93206 10/05/202309/19, 06/08/2021, 09/07/2020, Additional history exists Influenza Vaccine (FLU shot) (#1) 2023 01/10/2022, 11/18/2020, 12/06/2019, Additional history exists CKD HGB USE SMARTSET 62519 03/06/202403/06, 03/06/2023, 10/04/2022, Additional history exists Pneumococcal [...] filedocumented as of this encounter Care Teams Dye Winch Operator Relationship Specialty Start Date End Date Gilbert Calloway MD [address] [place] [address] [place] [address] PCP - General Family Medicine 07/30/23 documented as of this encounter
--- OUTSIDE RECORDS SUMMARY | 2023-11-03 17:37 | External Medical Summary | Summary of Care ---
Author Name Unknown Organization [facility] Address [address] [place] [address] Phone [phone] Care Team Providers Care Brush Polisher Name Role Phone Gilbert Calloway MD Primary Care Provide r Reason for Visit * Reason Onset Date Comments No Show 09/05/2023 [facility] No Show Auto mation Encounter Details Date Type Department Care Team (Late st Contact Info) Description 09/05/[address] [place] [address] Lucio Otoole PA-C [address] [place] [address] [place] [phone] No Show ([facility] No Show Automation) Allergies Active Allergy Reactions Criticality Noted Date [...] Chronic atrial fibrillation 03/01/2021 Overview: new onset, [facility] on apixaban Last Assessment [...] joint replacement status 09/09/2002 Atherosclerosis of [place] ronary artery of [place] heart without angina pectoris Last Assessment & [...] ulcer 06/30/2014 06/26/2017 Overview: hgb 7.4 admitted [facility] CKD (chronic kidney disease) [...] encounter Miscellaneous Notes * Telephone Encounter - Diana Hernandez Show - 09/05/2023 4:40 PM EDT Dear Zoya Howard, Looks like you missed an appointment with LUCIO OTOOLE on 08/31/2023 at 12:00 PM. If you haven't already rescheduled, you have a couple of options: Reschedule in [email or web address] Call us at [phone] Can't make a future appointment? Cancel and let someone else have your spot! It's easy to do via Zenfolio or by calling us. Thanks for trusting [facility] with your care. We hope to see you back in our office soon. Sincerely, LUCIO OTOOLE documented in this encounter Plan of Treatment Upcoming Encounters Date Type Department Care Team (Late st Contact Info) Description 09/06/2023 2:00 PM EDT Scheduled Telephone [facility] [place], [address] [place] [address] Coordinator, [facility] [address] [place] [address] 09/25/2023 8:30 AM EDT [facility] Visit [facility], [facility] [address] [place] [address] Lana Lieberman, KHARI [address] [place] [address] 10/12/2023 10:40 AM EDT Office Visit Family [address] [phone] Gilbert Calloway MD [address] [place] [address] [place] [address] 04/04/2024 2:40 PM EST Office Visit Nephrology, [facility] [address] [place] [address] Tirso Shah MD [address] [facility] [place] [address] Health Maintenance Due Date Last Done Comments DTaP,Tdap,and Td Vaccines (1 - Tdap) 11/15/1957 Depression Monitoring 09/29/2020 09/30/2019 COVID-19 Vaccine ( - season) 2022 04/19/2020, 04/04/2020, 03/22/2020, Additional history exists Albumin/Creatinine Ratio 07/28/2023 023, 06/09/2020, 03/13/2019, Additional history exists TSH 07/28/2023 07/27/2022, 05/21, 06/09/2020, Additional history exists CKD PHOS USE SMARTSET 54679 10/05/2023 0807/2022, 06/08/2021, 09/07/2020, Additional history exists Influenza Vaccine (FLU shot) (#1) 2023 01/10/2022, 11/18/2020, 12/06/2019, Additional history exists CKD HGB USE SMARTSET 84572 03/06/202403/06, 03/06/2023, 10/04/2022, Additional history exists Pneumococcal [...] filedocumented as of this encounter Care Teams Brush Polisher Relationship Specialty Start Date End Date Gilbert Calloway MD [address] [place] [address] [place] [phone] PCP - General Family Medicine 07/30/23 documented as of this encounter
--- OUTSIDE RECORDS SUMMARY | 2023-11-03 17:37 | External Medical Summary | Summary of Care ---
Author Name Unknown Organization [facility] Address [address] [facility] [place] [address] Phone [phone] Care Team Providers Care Hotel Assistant General Manager Name Role Phone Gilbert Calloway MD Primary Care Provide r Reason for Visit * Reason Onset Date Comments [facility]: Maintenance 09/06/2023 Encounter Details Date Type Department Care Team (Late st Contact Info) Description 09/06/2023 2:00 PM EDT Scheduled Telephone [facility], [facility] [address] [facility] [place] [address] Coordinator, [facility] [address] [facility] [place] [address] Allergies Active Allergy Reactions Criticality Noted Date Comments Ergotamine 03/01/2000 vomit Nitroglycerin 03/14/2007 vomitting documented as of this encounter (statuses as of 09/06/2023) Medications Medication Sig Dispensed Refills Start Date [...] as of this encounter (statuses as of 09/06/2023) Active Problems Problem Noted Date Diagnosed Date [...] pain concerns. She is aware [facility] does not manage chronic pain meds. With her history of confusion, would recommend against use of narcotic medication. 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.] as of this encounter (statuses as of 09/06/2023) Immunizations Name Administration Dates Next Due COVID-19 [...] No 03/07/2023 Does the household have a [facility] source [facility] income? (Household - [...] Telephone Encounter - Shelby Arroyo LPN - 09/06/2023 8:22 AM EDT Images from the original note were not included. [facility] Remote Patient Monitoring Unable to contact patient: Trigger type: D[facility] mail[facility] full Will place follow up call for tomorrow No weight yet today documented in this encounter Plan of Treatment Upcoming Encounters Date Type Department Care Team (Late st Contact Info) Description 09/07/2023 1:15 PM EDT Scheduled Telephone [facility] [place], [facility] [address] [place] [address] Coordinator, [facility] [address] [place] [address] 09/25/2023 8:30 AM EDT Home Visit [facility] [place], [facility] [address] [place] [address] Lana Lieberman RN [address] [place] [address] 10/12/2023 10:40 AM EDT Office Visit Family Medicine [address] [place] [phone] Gilbert Calloway MD [address] [place] [address] [place] [address] 04/04/2024 2:40 PM EST Office Visit Nephrology, [facility] [address] [facility] [place] [address] Tirso Shah MD [address] [facility] [address] [place] [address] Health Maintenance Due Date Last Done Comments DTaP,Tdap,and Td Vaccines (1 - Tdap) 11/15/1957 Depression Monitoring 09/29/2020 09/30/2019 COVID-19 Vaccine (5 - 2022- season) 2022 04/19/2020, 04/04/2020, 03/22/2020, Additional history exists Albumin/Creatinine Ratio 07/28/2023 023, 06/09/2020, 03/13/2019, Additional history exists TSH 07/28/2023 07/27/2022, 05/21, 06/09/2020, Additional history exists CKD PHOS USE SMARTSET 87017 10/05/202309/19, 06/08/2021, 09/07/2020, Additional history exists Influenza Vaccine (FLU shot) (#1) 2023 01/10/2022, 11/18/2020, 12/06/2019, Additional history exists CKD HGB USE SMARTSET 93496 03/06/202403/06, 03/06/2023, 10/04/2022, Additional history exists Pneumococcal [...] filedocumented as of this encounter Care Teams Hotel Assistant General Manager Relationship Specialty Start Date End Date Gilbert Calloway MD [address] [place] [address] [place] [address] PCP - General Family Medicine 07/30/23 documented as of this encounter
--- OUTSIDE RECORDS SUMMARY | 2023-11-03 17:37 | External Medical Summary | Summary of Care ---
Author Name Unknown Organization [facility] Address [address] [place] [facility] [place] [address] Phone [phone] Care Team Providers Care Business Office Associate Name Role Phone Gilbert Calloway MD Primary Care Provide r Reason for Visit * Reason Onset Date Comments [facility]: Maintenance 09/09/2023 Encounter Details Date Type Department Care Team (Late st Contact Info) Description 09/09/2023 10:00 AM EDT Scheduled Telephone [facility], [facility] 132 [facility] [place] [address] [facility], Nurse [address] [place] [address] Allergies Active Allergy Reactions Criticality Noted Date Comments Ergotamine 03/01/2000 vomit Nitroglycerin 03/14/2007 vomitting documented as of this encounter (statuses as of 09/09/2023) Medications Medication Sig Dispensed Refills Start Date [...] as of this encounter (statuses as of 09/09/2023) Active Problems Problem Noted Date Diagnosed Date [...] discuss her pain concerns. She is aware [facility] does not manage chronic pain meds. With her history of confusion, would recommend against use of narcotic medication. 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 Last Assessment & Plan: Stable no angina -continue rosuvastatin, metopropolol, Anxiety state Last Assessment & Plan: Stable on buspar, Primary hypertension Gastroesophageal reflux dise ase with esophagitis without hemorrhage Last Assessment & Plan: symptoms controlled on pantoprazole Scoliosis of lumbar spine Mixed incontinence urge and stress (male)(female ) documented as of this encounter (statuses as of 09/09/2023) Resolved Problems Problem Noted Date Diagnosed Date [...] ulcer 06/30/2014 06/26/2017 Overview: hgb 7.4 admitted [facility] CKD (chronic kidney disease) stage 3, [...] as of this encounter (statuses as of 09/09/2023) Immunizations Name Administration Dates Next Due COVID-19 [...] No 03/07/2023 Does the household have a [facility] source of income? (Household - for ages [...] Telephone Encounter - Maia Yao RN - 09/09/2023 10:40 AM EDT Images from the original note were not included. [facility] at Home Telephonic Nurse Follow-Up Call [facility] Subprogram: Focused Care Management (3-9 months) Follow Up Call Type: Weekend Call Acute issue requiring follow-up call: Other: follow upon amc wt trigger 09/08/23 Objective: 09/04/2023 2:01 PM 08/06/2023 2:13 PM 07/04/2023 1:17 PM 07/03/2023 1:06 PM 06/21/2023 2:00 PM VITALS ACROSS ENCOUNTERS BP 130/68 124/82 132/84 160/80 98/56 Pulse 68 86 78 76 Remote Patient Monitoring: [facility] Scale: see below Oxygen Needs: NO supplemental oxygen needs identified DME Needs: NO DME needs identified Medications: New medication(s) added: : Instructed to initiate prn Torsemide on 09/03, was not completed 09/04 at , Did confirm RX was picked up 09/04 : Subjective: Condition Status: UTC-left requesting return call. Current Concerns: Disposition: Follow up call scheduled for tomorrow with SPLIT [employer] DR[employer] ROOM SUPERVISOR Laundry Sorter Future Visits Scheduled: Future Appointments-next 60 days Date/Time Provider Specialty Dept Phone 09/25/2023 8:30 AM Lana Lieberman, RN [facility] [phone] 10/12/2023 10:40 AM (Arrive by 10:25 AM) Gilbert Calloway MD Family Medicine [phone] 04/04/2024 2:40 PM (Arrive by 2:25 PM) Tirso Shah MD Nephrology [phone] Maia Yao, RN documented in this encounter Plan of Treatment Upcoming Encounters Date Type Department Care Team (Late st Contact Info) Description 09/10/2023 1:00 PM EDT Scheduled Telephone [facility], [facility] [address] [place] [address] Coordinator, [facility] [address] [place] [address] 09/25/2023 8:30 AM EDT Home Visit [facility], [facility] [address] [place] [address] Lana Lieberman RN 132 [facility] [place] [address] 10/12/2023 10:40 AM EDT Office Visit [address] Medicine [address] [phone] Gilbert Calloway MD [address] [place] [address] [place] [address] 04/04/2024 2:40 PM EST Office Visit NephrologyCaroline [address] [place] [address] Tirso Shah MD [address] [facility] [place] [address] Health Maintenance Due Date Last Done Comments DTaP,Tdap,and Td Vaccines (1 - Tdap) 11/15/1957 Depression Monitoring 09/29/2020 09/30/2019 COVID-19 Vaccine (5 - season) 2022 04/19/2020, 04/04/2020, 03/22/2020, Additional history exists Albumin/Creatinine Ratio 07/28/2023 023, 06/09/2020, 03/13/2019, Additional history exists TSH 07/28/2023 07/27/2022, 05/21, 06/09/2020, Additional history exists CKD PHOS USE SMARTSET 25764 10/05/202309/19, 06/08/2021, 09/07/2020, Additional history exists Influenza Vaccine (FLU shot) (#1) 2023 01/10/2022, 11/18/2020, 12/06/2019, Additional history exists CKD HGB USE SMARTSET 94625 03/06/202403/06, 03/06/2023, 10/04/2022, Additional history exists Pneumococcal [...] filedocumented as of this encounter Care Teams Business Office Associate Relationship Specialty Start Date End Date Gilbert Calloway MD [address] [place] [address] [place] [phone] PCP - General Family Medicine 07/30/23 documented as of this encounter
--- OUTSIDE RECORDS SUMMARY | 2023-11-03 17:37 | External Medical Summary | Summary of Care ---
Author Name Unknown Organization [facility] Address [address] [facility] [place] [address] Phone [phone] Care Team Providers Care Director Of Real Estate Name Role Phone Gilbert Calloway MD Primary Care Provide r Reason for Visit * Reason Onset Date Comments [facility]: Maintenance 09/07/2023 Encounter Details Date Type Department Care Team (Late st Contact Info) Description 09/07/2023 1:15 PM EDT Scheduled Telephone [facility], [facility] [address] [facility] [place] [address] Coordinator, [facility] [address] [facility] [place] [address] Allergies Active Allergy Reactions Criticality Noted Date Comments Ergotamine 03/01/2000 vomit Nitroglycerin 03/14/2007 vomitting documented as of this encounter (statuses as of 09/07/2023) Medications Medication Sig Dispensed Refills Start Date [...] as of this encounter (statuses as of 09/07/2023) Active Problems Problem Noted Date Diagnosed Date [...] discuss her pain concerns. 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[place] co ronary artery of [place] heart without angina pectoris Last Assessment & Plan: Stable no angina -continue rosuvastatin, metopropolol, Anxiety state Last Assessment & Plan: Stable on buspar, Primary hypertension Gastroesophageal reflux dise ase with esophagitis without hemorrhage Last Assessment & Plan: symptoms controlled on pantoprazole Scoliosis of lumbar spine Mixed incontinence urge and stress (male)(female ) documented as of this encounter (statuses as of 09/07/2023) Resolved Problems Problem Noted Date Diagnosed Date [...] as of this encounter (statuses as of 09/07/2023) Immunizations Name Administration Dates Next Due COVID-19 [...] No 03/07/2023 Does the household have a [facility] source of income? (Household - for [...] encounter Miscellaneous Notes * Telephone Encounter - Elsy Harris LPN - 09/07/2023 11:22 AM EDT Images from the original note were not included. [facility] at Home Telephonic Nurse Follow-Up Call [facility] Subprogram: Focused Care Management (3-9 months) Follow Up Call Type: Routine follow up call / Status Check Acute issue requiring follow-up call: Other: weight Objective: 09/04/2023 2:01 PM 08/06/2023 2:13 PM 07/04/2023 1:17 PM 07/03/2023 1:06 PM 06/21/2023 2:00 PM VITALS ACROSS ENCOUNTERS BP 130/68 124/82 132/84 160/80 98/56 Pulse 68 86 78 76 Remote Patient Monitoring: [facility] Scale: 161.4 lbs increase of 2.2 lbs in 1 day Oxygen Needs: NO supplemental oxygen needs identified DME Needs: NO DME needs identified Medications: Current DTP: Other: tale torsemide 20 mg tablet daily as needed for >2 lbs weight gain Subjective: Condition Status: No change in symptoms Current Concerns: Call to pt at [phone] no answer mailbox not set u Call to [phone] recoding states call can not be completed at this time F/u call scheduled for tomorrow Disposition: Follow up call scheduled for tomorrow with FARIDEH Fiberglass Quality Technician Future Visits Scheduled: Future Appointments-next 60 days Date/Time Provider Specialty Dept Phone 09/07/2023 1:15 PM Coordinator, Ivan Garner [facility] [phone] 09/25/2023 8:30 AM Lana Lieberman, RN [facility] [phone] 10/12/2023 10:40 AM (Arrive by 10:25 AM) Gilbert Calloway MD Family Medicine [phone] 04/04/2024 2:40 PM (Arrive by 2:25 PM) Tirso Shah MD Nephrology [phone] Elsy Harris LPN documented in this encounter Plan of Treatment Upcoming Encounters Date Type Department Care Team (Late st Contact Info) Description 09/08/2023 10:00 AM EDT Scheduled Telephone [facility] [place], [place] [address] [address] [place] [address] [facility], Nurse [place] [facility] [place] [address] 09/25/2023 8:30 AM EDT Home Visit [facility], [facility] [place] [address] Lana Lieberman RN [address] [place] [address] 10/12/2023 10:40 AM EDT Office Visit Family Medicine [address] [place] [phone] Gilbert Calloway MD [address] [place] [address] [place] [address] 04/04/2024 2:40 PM EST Office Visit Nephrology, [facility] [address] [place] [address] Tirso Shah MD [address] [place] [address] Health Maintenance Due Date Last Done Comments DTaP,Tdap,and Td Vaccines (1 - Tdap) 11/15/1957 Depression Monitoring 09/29/2020 09/30/2019 COVID-19 Vaccine (5 - 2022- season) 2022 04/19/2020, 04/04/2020, 03/22/2020, Additional history exists Albumin/Creatinine Ratio 07/28/2023 023, 06/09/2020, 03/13/2019, Additional history exists TSH 07/28/2023 07/27/2022, 05/21, 06/09/2020, Additional history exists CKD PHOS USE SMARTSET 93068 10/05/202309/19, 06/08/2021, 09/07/2020, Additional history exists Influenza Vaccine (FLU shot) (#1) 2023 01/10/2022, 11/18/2020, 12/06/2019, Additional history exists CKD HGB USE SMARTSET 92667 03/06/202403/06, 03/06/2023, 10/04/2022, Additional history exists Pneumococcal [...] of this encounter Care Teams Director Of Real Estate Relationship Specialty Start Date End Date Gilbert Calloway MD [address] [place] [address] [place] [address] PCP - General Family Medicine 07/30/23 documented as of this encounter
--- OUTSIDE RECORDS SUMMARY | 2023-11-03 17:37 | External Medical Summary | Summary of Care ---
Author Name Unknown Organization [facility] Address [address] [facility] [place] [address] Phone [phone] Care Team Providers Care Outside Machinist Supervisor Name Role Phone Gilbert Calloway MD Primary Care Provide r Reason for Visit * Reason Onset Date Comments [facility]: Maintenance 09/12/2023 Encounter Details Date Type Department Care Team (Late st Contact Info) Description 09/12/2023 12:30 PM EDT Scheduled Telephone [facility], [facility] 132 [facility] [place] [address] Coordinator, [facility] 132 [facility] [place] [address] Allergies Active Allergy Reactions Criticality Noted Date Comments Ergotamine 03/01/2000 vomit Nitroglycerin 03/14/2007 vomitting documented as of this encounter (statuses as of 09/12/2023) Medications Medication Sig Dispensed Refills Start Date [...] as of this encounter (statuses as of 09/12/2023) Active Problems Problem Noted Date Diagnosed Date [...] discuss her pain concerns. She is aware [facility] does not manage chronic pain meds. 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[place] co ronary artery of [place] heart without angina pectoris Last Assessment & Plan: Stable no angina -continue rosuvastatin, metopropolol, Anxiety state Last Assessment & Plan: Stable on buspar, Primary hypertension Gastroesophageal reflux dise ase with esophagitis without hemorrhage Last Assessment & Plan: symptoms controlled on pantoprazole Scoliosis of lumbar spine Mixed incontinence urge and stress (male)(female ) documented as of this encounter (statuses as of 09/12/2023) Resolved Problems Problem Noted Date Diagnosed Date [...] as of this encounter (statuses as of 09/12/2023) Immunizations Name Administration Dates Next Due COVID-19 [...] 03/07/2023 Does the household have a [facility] source of income? (Household - for [...] Telephone Encounter - Shelby Arroyo LPN - 09/12/2023 12:38 PM EDT Images from the original note were not included. [facility] at Home Telephonic Nurse Follow-Up Call [facility] Subprogram: Focused Care Management (3-9 months) Follow Up Call Type: 48 hour follow up Acute issue requiring follow-up call: Other: weight trigger Objective: 09/04/2023 2:01 PM 08/06/2023 2:13 PM 07/04/2023 1:17 PM 07/03/2023 1:06 PM 06/21/2023 2:00 PM VITALS ACROSS ENCOUNTERS BP 130/68 124/82 132/84 160/80 98/56 Pulse 68 86 78 76 Remote Patient Monitoring: AMC Scale: daily weights Oxygen Needs: NO supplemental oxygen needs identified DME Needs: NO DME needs identified Medications: Dose adjustment(s) made: took extra dose of torsemide Subjective: Condition Status: Symptoms resolved and back to baseline Current Concerns: Patient states doing ok denies increased SOB or edema will call with anyissues Disposition: Issue resolved. All appropriate follow up scheduled. Future Visits Scheduled: Future Appointments-next 60 days Date/Time Provider Specialty Dept Phone 09/25/2023 8:30 AM Lana Lieberman RN [facility] [phone] 10/12/2023 10:40 AM (Arrive by 10:25 AM) Gilbert Calloway MD Family Medicine [phone] 04/04/2024 2:40 PM (Arrive by 2:25 PM) Tirso Shah MD Nephrology [phone] Shelby Arroyo LPN documented in this encounter Plan of Treatment Upcoming Encounters Date Type Department Care Team (Late st Contact Info) Description 09/25/2023 8:30 AM EDT Home Visit [facility] [place], [facility] 132 [facility] [place] [address] Lana Lieberman RN 132 [facility] [place] [address] 10/12/2023 10:40 AM EDT Office Visit Family Medicine [address] [phone] Gilbert Calloway MD [address] [place] [address] [place] [address] 04/04/2024 2:40 PM EST Office Visit [facility] 200 [facility] [place] [address] Tirso Shah MD 200 [facility] [place] [address] Health Maintenance Due Date Last Done Comments DTaP,Tdap,and Td Vaccines (1 - Tdap) 11/15/1957 Depression Monitoring 09/29/2020 09/30/2019 COVID-19 Vaccine (5 - season) 2022 04/19/2020, 04/04/2020, 03/22/2020, Additional history exists Albumin/Creatinine Ratio 07/28/2023 023, 06/09/2020, 03/13/2019, Additional history exists TSH 07/28/2023 07/27/2022, 05/21, 06/09/2020, Additional history exists CKD PHOS USE SMARTSET 55366 10/05/202309/19, 06/08/2021, 09/07/2020, Additional history exists Influenza Vaccine (FLU shot) (#1) 2023 01/10/2022, 11/18/2020, 12/06/2019, Additional history exists CKD HGB USE SMARTSET 42272 03/06/202403/06, 03/06/2023, 10/04/2022, Additional history exists Pneumococcal [...] filedocumented as of this encounter Care Teams Outside Machinist Supervisor Relationship Specialty Start Date End Date Gilbert Calloway MD [address] [place] [address] [place] [address] PCP - General Family Medicine 07/30/23 documented as of this encounter
--- OUTSIDE RECORDS SUMMARY | 2023-11-03 17:37 | External Medical Summary | Summary of Care ---
Author Name Unknown Organization [facility] Address [address] [place] [address] Phone [phone] Care Team Providers Care Catcher Filter Tip Name Role Phone Gilbert Calloway MD Primary Care Provide r Reason for Visit * Reason Onset Date Comments [facility]: Maintenance 09/05/2023 Encounter Details Date Type Department Care Team (Late st Contact Info) Description 09/05/2023 3:00 PM EDT Scheduled Telephone [facility], [place] [address] [place] [address] Coordinator, [facility] [address] [place] [address] Allergies Active Allergy Reactions Criticality Noted Date [...] Chronic atrial fibrillation 03/01/2021 Overview: new onset, [facility] on apixaban Last Assessment & 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 (Household - for ages [...] Telephone Encounter - Gila Escalera LPN - 09/05/2023 3:09 PM EDT Images from the original note were not included. [facility] at Home Telephonic Nurse Follow-Up Call [facility] Subprogram: Focused Care Management (3-9 months) [...] NO DME needs identified Medications: Current DTP: Avoid excessive fluid intake and avoid salty, processed food Weigh daily Other: torsemide 20 mg as needed for weight gain Current Concerns: Call placed to patient for DTP follow up Could not leave message on mobile number, mailbox full Will add FCC tomorrow Disposition: Follow up call scheduled for tomorrow with FARIDEH Grazing Examiner Future Visits Scheduled: Future Appointments-next 60 days Date/Time Provider Specialty Dept Phone 09/25/2023 8:30 AM Lana Lieberman RN [facility] [phone] 10/12/2023 10:40 AM (Arrive by 10:25 AM) Gilbert Calloway MD Family Medicine [phone] 04/04/2024 2:40 PM (Arrive by 2:25 PM) Tirso Shah MD Nephrology [phone] FARIDEH Sampson LPN [facility] 09/05/2023,3:09 PM documented in this encounter Plan of Treatment Upcoming Encounters Date Type Department Care Team (Late st Contact Info) Description 09/06/2023 2:00 PM EDT Scheduled Telephone [facility], [facility] 132 [facility] [place] [address] Coordinator, [facility] 132 [facility] [place] [address] 09/25/2023 8:30 AM EDT Home Visit [facility], [facility] [address] [place] [address] Lana Lieberman RN 132 [facility] [place] [address] 10/12/2023 10:40 AM EDT Office Visit Family Medicine [address] [place] [phone] Gilbert Calloway MD [address] [place] [address] [place] [address] 04/04/2024 2:40 PM EST Office Visit Nephrology, [place] [address] [place] [address] Tirso Shah MD [address] [place] [address] Health Maintenance Due Date Last Done Comments DTaP,Tdap,and Td Vaccines (1 - Tdap) 11/15/1957 Depression Monitoring 09/29/2020 09/30/2019 COVID-19 Vaccine (5 - season) 2022 04/19/2020, 04/04/2020, 03/22/2020, Additional history exists Albumin/Creatinine Ratio 07/28/2023 023, 06/09/2020, 03/13/2019, Additional history exists TSH 07/28/2023 07/27/2022, 05/21, 06/09/2020, Additional history exists CKD PHOS USE SMARTSET 47780 10/05/202309/19, 06/08/2021, 09/07/2020, Additional history exists Influenza Vaccine (FLU shot) (#1) 2023 01/10/2022, 11/18/2020, 12/06/2019, Additional history exists CKD HGB USE SMARTSET 00591 03/06/202403/06, 03/06/2023, 10/04/2022, Additional history exists Pneumococcal [...] filedocumented as of this encounter Care Teams Catcher Filter Tip Relationship Specialty Start Date End Date Gilbert Calloway MD [address] [place] [address] [place] [address] PCP - General Family Medicine 07/30/23 documented as of this encounter
--- OUTSIDE RECORDS SUMMARY | 2023-11-03 17:38 | External Medical Summary | Summary of Care ---
Author Name Unknown Organization [facility] Address [address] [place] [address] Phone [phone] Care Team Providers Care Survey Worker Name Role Phone Gilbert Calloway MD Primary Care Provide r Reason for Visit * Reason Onset Date Comments [facility]: Maintenance 09/03/2023 Encounter Details Date Type Department Care Team (Late st Contact Info) Description 09/03/2023 Telephone [facility], [facility] [address] [place] [facility] [place] [facility] [place] [address] [facility], Nurse [facility] [address] [place], [place] [id number] [facility]: Maintenance Allergies Active Allergy Reactions Criticality Noted Date Comments Ergotamine 03/01/2000 vomit Nitroglycerin 03/14/2007 vomitting documented as of this encounter (statuses as of 09/03/2023) Medications Medication Sig Dispensed Refills Start Date [...] as of this encounter (statuses as of 09/03/2023) Active Problems Problem Noted Date Diagnosed Date [...] discuss her pain concerns. She is aware [facility] does not manage chronic pain meds. With her history of confusion, would recommend against use of narcotic medication. 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 Last Assessment & Plan: Stable no angina -continue rosuvastatin, metopropolol, Anxiety state Last Assessment & Plan: Stable on buspar, Primary hypertension Gastroesophageal reflux dise ase with esophagitis without hemorrhage Last Assessment & Plan: symptoms controlled on pantoprazole Scoliosis of lumbar spine Mixed incontinence urge and stress (male)(female ) documented as of this encounter (statuses as of 09/03/2023) Resolved Problems Problem Noted Date Diagnosed Date [...] ulcer 06/30/2014 06/26/2017 Overview: hgb 7.4 admitted [facility] CKD (chronic kidney disease) stage 3, [...] as of this encounter (statuses as of 09/03/2023) Immunizations Name Administration Dates Next Due COVID-19 [...] encounter Miscellaneous Notes * Telephone Encounter - Carmela Espana LPN - 09/03/2023 9:49 AM EDT Images from the original note were not included. [facility] Remote Patient Monitoring Able to contact patient: Trigger type: Abnormal reading(s): AMC (Advanced Monitored Caregiving): Scale: Trigger weight: 160.8 lbs; weight increased 2.2 lbs in 1 day(s) Trigger priority per AMC: high Symptom review: Nausea: + Diet Reviewed: Yes. Patient has had any foods high in sodium: No Fluid Intake Reviewed: Yes. Patient is on a fluid restriction: Yes, restriction amount in milliliters or liters: 2L Adherent to restriction: Yes Self-Management Plan Reviewed: Red Flags: increased swelling, wt gain >2lbs, SOB Risk assignment recommendation: Moderate risk findings (check as applicable): [x] Moderate trigger priority on AMC [] Confirmed tympanic equivalent temperature 100.4-101.9 F onehour post administration of antipyretic [x] Weight gain of 2.1-4.9 lbs over 1-2 days [] Confirmed new sustained resting HR greater than 105WITHOUT symptoms [] Weight gain of greater than or equal to 5 lbs in 5 days WITHOUT heart failure symptoms [] Confirmed new sustained resting HRT less than 60 WITHOUT symptoms [] Moderate heart failure symptoms [] Confirmed SBP less than 90 WITHOUT symptoms [] Moderate COPD symptoms [] Confirmed SBP greater than 170 WITHOUT symptoms [] Confirmed new SpO2 90-93% [] Confirmed DBP greater than 90 WITHOUT symptoms High risk findings (check as applicable): [] High trigger priority on AMC [] Confirmed tympanic equivalent temperature greater than or equal to 102 F on hour post administration of antipyretic [] Weight gain of greater than or equal to 5 lbs over 1-2 days [] Confirmed tympanic equivalent temperature less than 96 F [] Weight gain of greater than or equal to 5 lbs in 5 days WITH heart failure symptoms [] Confirmednew sustained resting HR greater than 105 WITH symptoms [] Severe heart failure symptoms [] Confirmed new sustained resting HR less than 60 WITH symptoms [] Severe COPD symptoms [] Confirmed SBP less than 90 WITH symptoms [] Confirmed new SpO2 less than 90% [] Confirmed SBP greater than 170 WITH symptoms [] Confirmed DBP greater than 90 WITH symptoms Additional risk selection justification: Spoke with pt denies increased SOB, - edema, - abdominal fullness. She woke up around 3 am last night and vomited light yellowish liquid. After vomiting she ate peanut butter sandwich and had a drink. She has not gone back to bed since. She had tea this morning and took her medication with water. Denies currently feeling nauseous, denies fever/chills, - abdominal discomfort. She also had episode of vomiting Sunday. She did take a zofran on Sunday, has not taken today. Encouraged to call [facility] with any concerns Overall risk and identified plan: Moderate risk: Route to RNCM (Registered Nurse Staffing Executive) and Advance Practitioner documented in this encounter Plan of Treatment Upcoming Encounters Date Type Department Care Team (Late st Contact Info) Description 09/04/2023 4:00 PM EDT Home Visit [facility] [address] [place] [address] Lana Lieberman RN [address] [place] [address] 10/12/2023 10:40 AM EDT Office Visit Family Medicine [address] [place] [phone] Gilbert Calloway MD [address] [place] [address] [place] [address] 04/04/2024 2:40 PM EST Office Visit [facility] [place] [address] Tirso Shah MD 200 [facility] [place] [address] Health Maintenance Due Date Last Done Comments DTaP,Tdap,and Td Vaccines (1 - Tdap) 11/15/1957 Depression Monitoring 09/29/2020 09/30/2019 COVID-19 Vaccine (5 - 2022- season) 2022 04/19/2020, 04/04/2020, 03/22/2020, Additional history exists Albumin/Creatinine Ratio 07/28/2023 023, 06/09/2020, 03/13/2019, Additional history exists TSH 07/28/2023 07/27/2022, 05/21, 06/09/2020, Additional history exists CKD PHOS USE SMARTSET 12828 10/05/202309/19, 06/08/2021, 09/07/2020, Additional history exists Influenza Vaccine (FLU shot) (#1) 2023 01/10/2022, 11/18/2020, 12/06/2019, Additional history exists CKD HGB USE SMARTSET 72680 03/06/202403/06, 03/06/2023, 10/04/2022, Additional history exists Pneumococcal [...] as of this encounter Care Teams Survey Worker Relationship Specialty Start Date End Date Gilbert Calloway MD [address] [place] [address] [place] [address] PCP - General Family Medicine 07/30/23 documented as of this encounter
--- OUTSIDE RECORDS SUMMARY | 2023-11-03 17:38 | External Medical Summary | Summary of Care ---
Author Name Unknown Organization [facility] Address [address] [place] [address] Phone [phone] Care Team Providers Care Seedling Sorter Name Role Phone Gilbert Calloway MD Primary Care Provide r Reason for Visit * Reason Onset Date Comments Medical Nutrition Therapy 08/21/2023 Encounter Details Date Type Department Care Team (Latest Contact Info) Description 08/21/2023 2:00 PM EDT Scheduled Telephone [facility], [facility] [address] [place] [address] Flower Stroud, RDN [address] [place] [address] Chronic heart failure with preserved ejection fraction (HCC)* Allergies Active Allergy Reactions Criticality Noted Date Comments Ergotamine 03/01/2000 vomit Nitroglycerin 03/14/2007 vomitting documented as of this encounter (statuses as of 08/21/2023) Medications Medication Sig Dispensed Refills Start Date End Date Status Eliquis 5 MG Oral Tablet Take 1 Tablet by mouth in the morning and 1 Tablet before bedtime. 08/25/2022 Active Levothyroxine Sodium 100 MCG Oral Tablet (Levoxyl) Take 1 Tablet by mouth in the morning. (at least 30 min prior to breakfast or other meds). 90 Tablet 3 11/20/2022 Active Benzonatate 100 MG Oral Capsule (Tessalon Perles)Indications:Vi ral URI with cough Take 1 Capsule by mouth 3 times a day as needed for Cough. 30 Capsule 1 01/15/2023 Active Calcitriol 0.25 MCG Oral Capsule (Rocaltrol) Take 1 Capsule by mouth in the morning. Take 1 capsule by mouth Mon, Wed, Fri. 45 Capsule 1 02/07/2023 Active busPIRone HCl 10 MG Oral Tablet (Buspar)Indications:A nxiety state TAKE ONE TABLET BY MOUTH TWICE DAILY 60 Tablet 5 03/07/2023 Active Losartan Potassium 25 MG Oral Tablet (Cozaar)Indications:H ypertensive heart and kidney disease with chronic diastolic congestive heart failure and stage 3b chronic kidney disease (HCC) Take 1 Tablet by mouth in the morning. 90 Tablet 1 04/05/2023 Active Acetaminophen 500 MG Oral Tablet [...] THE MORNING 90 Tablet 1 06/26/2023 Active hydrOXYzine HCl 10 MG Oral Tablet (Atarax) TAKE ONE TABLET BY MOUTH EVERY DAY NEEDED FOR anxiety 30 Tablet 1 07/04/2023 Active Loperamide HCl 2 MG Oral Capsule (Imodium)Indications: Chronic diarrhea TAKE ONE CAPSULE FOUR TIMES DAILY NEEDED 60 Capsule 07/20/2023 Active Meloxicam 7.5 MG Oral Tablet (Mobic)Indications:Bi [...] FOR NAUSEA 30 Tablet 1 08/07/2023 Active documented as of this encounter (statuses as of 08/21/2023) Active Problems Problem Noted Date Diagnosed Date 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[place] co ronary artery of [place] heart without angina pectoris Last Assessment & Plan: Stable no angina -continue rosuvastatin, metopropolol, Anxiety state Last Assessment & Plan: Stable on buspar, Primary hypertension Gastroesophageal reflux dise ase with esophagitis without hemorrhage Last Assessment & Plan: symptoms controlled on pantoprazole Scoliosis of lumbar spine Mixed incontinence urge and stress (male)(female ) documented as of this encounter (statuses as of 08/21/2023) Resolved Problems Problem Noted Date Diagnosed Date [...] as of this encounter (statuses as of 08/21/2023) Immunizations Name Administration Dates Next Due COVID-19 [...] encounter Miscellaneous Notes * Telephone Encounter - Flower Stroud RDN - 08/20/2023 10:38 AM EDT NUTRITION PROGRESS NOTE - [facility] TELEPH[facility] [employer] [employer] [facility] Patient Phone Numbers: [phone] (Home Phone) Reason for follow up: Low sodium nutrition therapy and fluid restriction diet education. Nutrition follow up phone call from 08/02/23. Confirmed patient has received education previously provided and has been reviewed. Additional questions answered. RDN contact information provided for future needs while enrolled in [facility]. Flower Stroud MS, RDN, LDN Clinical Dietitian [facility] 08/21/2023 documented in this encounter Plan of Treatment Upcoming Encounters Date Type Department Care Team ([place] st Contact Info) Description 08/31/2023 12:00 PM EDT Office Visit Family [address] [phone] Dionne Flores PA-C [address] [place] [address] [place] [address] 09/04/2023 4:00 PM EDT Home Visit [facility], [facility] [address] [place] [address] Lana Lieberman, KHARI [address] [place] [address] 10/12/2023 10:40 AM EDT Office Visit Family Medicine [address] [place] [phone] Gilbert Calloway MD [address] [place] [address] [place] [address] 04/04/2024 2:40 PM EST Office Visit Nephrology, [facility] [address] [place] [address] Tirso Shah MD [address] [place] [address] Health Maintenance Due Date Last Done Comments DTaP,Tdap,and Td Vaccines (1 - Tdap) 11/15/1957 Depression Monitoring 09/29/2020 09/30/2019 COVID-19 Vaccine ( season) 2022 04/19/2020, 04/04/2020, 03/22/2020, Additional history exists Albumin/Creatinine Ratio 07/28/2023 023, 06/09/2020, 03/13/2019, Additional history exists TSH 07/28/2023 07/27/2022, 05/21, 06/09/2020, Additional history exists CKD PHOS USE SMARTSET 67243 10/05/202309/19, 06/08/2021, 09/07/2020, Additional history exists Influenza Vaccine (FLU shot) (#1) 2023 01/10/2022, 11/18/2020, 12/06/2019, Additional history exists CKD HGB USE SMARTSET 38141 03/06/202403/06, 03/06/2023, 10/04/2022, Additional history exists Pneumococcal [...] failure with preserved ejection fraction (HCC)- Primary documented in this encounter Care Teams Seedling Sorter Relationship Specialty Start Date End Date Gilbert Callwoay MD [address] [place] [address] [place] [address] PCP - General Family Medicine 07/30/23 documented as of this encounter
--- OUTSIDE RECORDS SUMMARY | 2023-11-03 17:38 | External Medical Summary | Summary of Care ---
Author Name Unknown Organization [facility] Address [address] [place] [address] Phone [phone] Care Team Providers Care Laborer Wood Preserving Plant Name Role Phone Gilbert Calloway MD Primary Care Provide r Encounter Details Date Type Department Care Team (Late st Contact Info) Description 08/30/2023 Population Health External Data Unspecified Department Allergies Active Allergy Reactions Criticality Noted Date Comments Ergotamine 03/01/2000 vomit Nitroglycerin 03/14/2007 vomitting documented as of this encounter (statuses as of 08/30/2023) Medications Medication Sig Dispensed Refills Start Date [...] FOR anxiety 30 Tablet 1 07/04/2023 Active Meloxicam 7.5 MG Oral Tablet [...] as of this encounter (statuses as of 08/30/2023) Active Problems Problem Noted Date Diagnosed Date [...] as of this encounter (statuses as of 08/30/2023) Resolved Problems Problem Noted Date Diagnosed Date [...] as of this encounter (statuses as of 08/30/2023) Immunizations Name Administration Dates Next Due COVID-19 [...] Care Team (Late st Contact Info) Description 08/31/2023 12:00 PM EDT Office Visit Family [address] [place] [phone] Dionne Flores PA-C [address] [place] [address] [place] [address] 09/04/2023 4:00 PM EDT Home Visit [facility] [address] [facility] [place] [address] Lana Lieberman, KHARI [address] [facility] [place] [address] 10/12/2023 10:40 AM EDT Office Visit Family [address] [place] [address] Gilbert Calloway MD [address] [place] [address] [place] [address] 04/04/2024 2:40 PM EST Office Visit NephCaroline roper [address] [place] [address] Tirso Shah MD 200 [facility] [place] [address] Health Maintenance Due Date Last Done Comments DTaP,Tdap,and Td Vaccines (1 - Tdap) 11/15/1957 Depression Monitoring 09/29/2020 09/30/2019 COVID-19 Vaccine ( season) 2022 04/19/2020, 04/04/2020, 03/22/2020, Additional history exists Albumin/Creatinine Ratio 07/28/2023 023, 06/09/2020, 03/13/2019, Additional history exists TSH 07/28/2023 07/27/2022, 05/21, 06/09/2020, Additional history exists CKD PHOS USE SMARTSET 36899 10/05/202309/19, 06/08/2021, 09/07/2020, Additional history exists Influenza Vaccine (FLU shot) (#1) 2023 01/10/2022, 11/18/2020, 12/06/2019, Additional history exists CKD HGB USE SMARTSET 28472 03/06/202403/06, 03/06/2023, 10/04/2022, Additional history exists Pneumococcal [...] filedocumented as of this encounter Care Teams Laborer Wood Preserving Plant Relationship Specialty Start Date End Date Gilbert Calloway MD [address] [place] [address] [place] [address] PCP - General Family Medicine 07/30/23 documented as of this encounter
--- OUTSIDE RECORDS SUMMARY | 2023-11-03 17:38 | External Medical Summary | Summary of Care ---
Author Name Unknown Organization [facility] Address [address] [place] [address] Phone [phone] Care Team Providers Care Corporate Intern Name Role Phone Gilbert Calloway MD Primary Care Provide r Reason for Visit * Reason Onset Date Comments [facility]: Maintenance 09/04/2023 Encounter Details Date Type Department Care Team (Late st Contact Info) Description 09/04/2023 Telephone [facility], [facility] [address] [place] [address] [facility], Nurse [facility] [address] [place], [place] [phone] [facility]: Maintenance Allergies Active Allergy Reactions Criticality Noted Date Comments Ergotamine 03/01/2000 vomit Nitroglycerin 03/14/2007 vomitting documented as of this encounter (statuses as of 09/04/2023) Medications Medication Sig Dispensed Refills Start Date [...] as of this encounter (statuses as of 09/04/2023) Active Problems Problem Noted Date Diagnosed Date 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[place] co ronary artery of [place] heart without angina pectoris Last Assessment & Plan: Stable no angina -continue rosuvastatin, metopropolol, Anxiety state Last Assessment & Plan: Stable on buspar, Primary hypertension Gastroesophageal reflux dise ase with esophagitis without hemorrhage Last Assessment & Plan: symptoms controlled on pantoprazole Scoliosis of lumbar spine Mixed incontinence urge and stress (male)(female ) documented as of this encounter (statuses as of 09/04/2023) Resolved Problems Problem Noted Date Diagnosed Date [...] as of this encounter (statuses as of 09/04/2023) Immunizations Name Administration Dates Next Due COVID-19 [...] Telephone Encounter - Carmela Espana LPN - 09/04/2023 10:49 AM EDT Images from the original note were not included. [facility] Remote Patient Monitoring Able to contact patient: Trigger type: Abnormal reading(s): AMC (Advanced Monitored Caregiving): Scale: Trigger weight: 161.6 lbs; weight increased 3 lbs in 2 day(s) Trigger priority per AMC: high Symptom review: SOB: + Abdominal Fullness: + Diet Reviewed: Yes. Patient has had any foods high in sodium: Yes, describe: hotdog yesterday Fluid Intake Reviewed: Yes. Patient is on a fluid restriction: Yes, restriction amount in milliliters or liters: 2L Adherent to restriction: Yes Self-Management Plan Reviewed: Red Flags: dizziness, Sob, increased swelling, medication questions/ concerns DTP (Diuretic Titration Protocol): Describe DTP: Name of medication(s): torsemide Dose: 20 mg Frequency: as needed Used in past 2 weeks: No Risk assignment recommendation: Moderate risk findings (check as applicable): [] Moderate trigger priority on AMC [] Confirmed tympanic equivalent temperature 100.4-101.9 F one hour post administration of antipyretic [] Weight gain of 2.1-4.9 lbs over 1-2 days [] Confirmed new sustained resting HR greater than 105 WITHOUT symptoms [] Weight gain of greater than [...] symptoms High risk findings (check as applicable): [x] High trigger priority on AMC [] Confirmed tympanic equivalent temperature greater than or equalto 102 F on hour post administration of [...] Additional risk selection justification: Spoke with pt c/o increase in SOB today and feeling bloated. Her pants feels tight today. Last BM yesterday. Denies increased edema. She gets meals on wheels and had a hot dog last night. She will take torsemide today. Has appt with RNCM this afternoon. Overall risk and identified plan: High risk: Next day follow up call scheduled Route to RNCM (Registered Nurse Electrical Appliance Mechanic) and Advance Practitioner Route to [facility] (Remote Medical Coordinator) documented in this encounter Plan of Treatment Upcoming Encounters Date Type Department Care Team (Late st Contact Info) Description 09/04/2023 4:00 PM EDT Home Visit [facility] at [facility] [address] [place] [address] Lana Lieberman RN [address] [place] [address] 09/05/2023 3:00 PM EDT Scheduled Telephone [facility], [place] [address] [place] [address] Coordinator, [facility] [place] [address] [place] [address] 10/12/2023 10:40 AM EDT Office Visit Family Medicine [address] [place] [phone] Gilbert Calloway MD [address] [place] [address] [place] [address] 04/04/2024 2:40 PM EST Office Visit Nephrology, [facility] [address] [facility] [place] [address] Tirso Shah MD [address] [place] [address] Health Maintenance Due Date Last Done Comments DTaP,Tdap,and Td Vaccines (1 - Tdap) 11/15/1957 Depression Monitoring 09/29/2020 09/30/2019 COVID-19 Vaccine (5 - 2022-24 season) 2022 04/19/2020, 04/04/2020, 03/22/2020, Additional history exists Albumin/Creatinine Ratio 07/28/2023 023, 06/09/2020, 03/13/2019, Additional history exists TSH 07/28/2023 07/27/2022, 04, 06/09/2020, Additional history exists CKD PHOS USE SMARTSET 38053 10/05/202309/19, 06/08/2021, 09/07/2020, Additional history exists Influenza Vaccine (FLU shot) (#1) 2023 01/10/2022, 11/18/2020, 12/06/2019, Additional history exists CKD HGB USE SMARTSET 62330 03/06/202403/06, 03/06/2023, 10/04/2022, Additional history exists Pneumococcal [...] filedocumented as of this encounter Care Teams Corporate Intern Relationship Specialty Start Date End Date Gilbert Calloway MD [address] [place] [address] [place] [phone] PCP - General Family Medicine 07/30/23 documented as of this encounter
--- OUTSIDE RECORDS SUMMARY | 2023-11-03 17:38 | External Medical Summary | Summary of Care ---
Author Name Unknown Organization [facility] Address [address] [place] [address] Phone [phone] Care Team Providers Care Consumer Sales Representative Name Role Phone Shola Calloway MD Primary Care Provide r Reason for Visit * Reason Comments eRx-Medication Refill Encounter Details Date Type Department Care Team (Late st Contact Info) Description 08/24/2023 Refill Family Medicine [address] [phone] Dlemer Valles MD [address] [place] [address] [place], [place] [phone] Chronic diarrhea Allergies Active Allergy Reactions Criticality Noted Date Comments Ergotamine 03/01/2000 vomit Nitroglycerin 03/14/2007 vomitting documented as of this encounter (statuses as of 08/27/2023) Medications Medication Sig Dispensed Refills Start Date [...] 04/05/2023 Active Acetaminophen 500 MG Oral Tablet (Tylenol)Indication [...] 07/04/2023 Active Meloxicam 7.5 MG Oral Tablet (Mobic)Indications: [...] 08/27/2023 Active Eliquis 5 MG Oral Tablet Take 1 Tablet by mouth in the morning and 1 Tablet before bedtime. 08/25/2022 08/27/19 24 Discontinued Loperamide HCl 2 MG Oral Capsule (Imodium)Indication s:Chronic diarrhea TAKE ONE CAPSULE FOUR TIMES DAILY NEEDED 60 Capsule 07/20/2023 08/27/19 24 Discontinued documented as of this encounter (statuses as of 08/27/2023) Active Problems Problem Noted Date Diagnosed Date [...] Pro-BNP Her weights are stable on [facility]. She appears euvolemic today. [...] discuss her pain concerns. She is aware [facility] does not manage chronic pain meds. 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[place] co ronary artery of [place] heart without angina pectoris Last Assessment & Plan: Stable no angina -continue rosuvastatin, metopropolol, Anxiety state Last Assessment & Plan: Stable on buspar, Primary hypertension Gastroesophageal reflux dise ase with esophagitis without hemorrhage Last Assessment & Plan: symptoms controlled on pantoprazole Scoliosis of lumbar spine Mixed incontinence urge and stress (male)(female ) documented as of this encounter (statuses as of 08/27/2023) Resolved Problems Problem Noted Date Diagnosed Date [...] as of this encounter (statuses as of 08/27/2023) Immunizations Name Administration Dates Next Due COVID-19 [...] encounter Miscellaneous Notes * Telephone Encounter - Shola Calloway MD - 08/27/2023 9:46 AM EDT Signed Prescriptions: Disp Refills Loperamide HCl 2 MG Oral Capsule (Imodium) 60 Cap*1 Sig: TAKE ONE CAPSULE BY MOUTH FOUR TIMES DAILY NEEDED Authorizing Provider: SHOLA CALLOWAY * Telephone Encounter - Maylin Barfield RN - 08/25/2023 10:21 AM EDTPending Prescriptions: Disp Refills Loperamide HCl 2 MG Oral Capsule (Imodium) 60 Cap*1 Sig: TAKE ONE CAPSULE BY MOUTH FOUR TIMES DAILY NEEDED * Telephone Encounter - Maylin Barfield RN - 08/25/2023 10:20 AM EDT Pending Prescriptions: Disp Refills Loperamide HCl 2 MG Oral Capsule (Imodium*60 Cap*1 Sig: TAKE ONE CAPSULE BY MOUTH FOUR TIMES DAILY NEEDED Last Visit: 05/29/2023 (in office), 01/10/2023 (telemedicine) Next Visit: 08/31/2023 Last date the medication was ordered: 06/2023 Patient Active Problem List Diagnosis Hip joint replacement status GENERAL OSTEOARTHROSIS Atherosclerosis of [place] coronary artery of [place] heart without angina pectoris Anxiety state ADVANCE [...] with preserved ejection fraction (HCC) Hiatal hernia Labs: Lab Results Component Value Date/Time CREATININE - [facility] 1.3 (H) 05/29/2023 03:45 PM CREATININE - [facility] 1.4 (H) 06/16/2019 10:39 AM CREATININE KEVYN 64 06/16/2019 10:39 AM CREATININE, RAND URINE-MET 147 03/08/2009 03:43 PM CREATININE, RAND URINE-VMA 147 03/08/2009 03:43 PM CREATININE, RANDOM URINE - [facility] 160 07/27/2022 11:42 AM CREATININE, RANDOM URINE - [facility] 87 03/13/2019 04:19 PM CREATININE-OUTSIDE LAB 1.08 05/09/2021 12:00 AM Lab Results Component Value Date/Time POTASSIUM - [facility] 4.5 05/29/2023 03:45 PM POTASSIUM - [facility] 5.1 06/16/2019 10:39 AM [...] Results Component Value Date/Time ALT - [facility] 13 03/06/2023 02:29 PM ALT - [facility] 26 06/16/2019 10:39 AM ALT-OUTSIDE LAB 27 11/18/2015 12:00 AM Hemoglobin AIC Results: Lab Results Component Value Date/Time HEMOGLOBIN A1C - [facility] 5.2 11/04/2013 12:09 PM HEMOGLOBIN A1C - [facility] 5.6 02/10/2008 10:46 AM HEMOGLOBIN A1C - [facility] 6.0 05/26/2003 02:17 PM * Telephone Encounter - Mary Kate Hernandez - 08/25/2023 5:02 AM EDTPending Prescriptions: Disp Refills Loperamide HCl 2 MG Oral Capsule [Pharmacy*60 Cap*0 Sig: TAKE ONE CAPSULE BY MOUTH FOUR TIMES DAILY NEEDED documented in this encounter Plan of Treatment Upcoming Encounters Date Type Department Care Team (Late st Contact Info) Description 08/31/2023 12:00 PM EDT Office Visit [address] [phone] Dionne Flores PA-C [address] [place] [address] [place] [address] 09/04/2023 4:00 PM EDT Home Visit [facility] [place] [address] Lana Lieberman, KHARI [address] [place] [address] 10/12/2023 10:40 AM EDT Office Visit [address] [phone] Shola Callwoay MD [address] [place] [address] [place] [address] 04/04/2024 2:40 PM EST Office Visit NephrologyCaroline [address] [place] [address] Tirso Shah MD [address] [place] [address] Health Maintenance Due Date Last Done Comments DTaP,Tdap,and Td Vaccines (1 - Tdap) 11/15/1957 Depression Monitoring 09/29/2020 09/30/2019 COVID-19 Vaccine (5 - 3-24 season) 2022 04/19/2020, 04/04/2020, 03/22/2020, Additional history exists Albumin/Creatinine Ratio 07/28/2023 023, 06/09/2020, 03/13/2019, Additional history exists TSH 07/28/2023 07/27/2022, 05/21, 06/09/2020, Additional history exists CKD PHOS USE SMARTSET 57497 10/05/202309/19, 06/08/2021, 09/07/2020, Additional history exists Influenza Vaccine (FLU shot) (#1) 2023 01/10/2022, 11/18/2020, 12/06/2019, Additional history exists CKD HGB USE SMARTSET 70059 03/06/202403/06, 03/06/2023, 10/04/2022, Additional history exists Pneumococcal [...] Diarrhea documented in this encounter Care Teams Consumer Sales Representative Relationship Specialty Start Date End Date Shola Calloway MD [address] [place] [address] [place] [address] PCP - General Family Medicine 07/30/23 documented as of this encounter
--- OUTSIDE RECORDS SUMMARY | 2023-11-03 17:38 | External Medical Summary | Summary of Care ---
Author Name Unknown Organization [facility] Address [address] [place] [address] Phone [phone] Care Team Providers Care Global Sales Executive Name Role Phone Gilbert Calloway MD Primary Care Provide r Reason for Visit * Reason Onset Date Comments Advice 08/13/2023 Pain and sleep r efills Encounter Details Date Type Department Care Team (Late st Contact Info) Description 08/13/2023 Telephone Family Medicine [address] [place] [phone] Gilbert Calloway MD [address] [place] [address] [place] [address] Advice (Pain and sleep refills ) Allergies Active Allergy Reactions Criticality Noted Date Comments Ergotamine 03/01/2000 vomit Nitroglycerin 03/14/2007 vomitting documented as of this encounter (statuses as of 08/14/2023) Medications Medication Sig Dispensed Refills Start Date [...] 1 capsule by mouth Mon, Wed, Sun. 45 Capsule 1 02/07/2023 Active busPIRone HCl [...] as of this encounter (statuses as of 08/14/2023) Active Problems Problem Noted Date Diagnosed Date [...] discuss her pain concerns. She is aware [facility] does not manage chronic pain 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[place] co ronary artery of [place] heart without angina pectoris Last Assessment & Plan: Stable no angina -continue rosuvastatin, metopropolol, Anxiety state Last Assessment & Plan: Stable on buspar, Primary hypertension Gastroesophageal reflux dise ase with esophagitis without hemorrhage Last Assessment & Plan: symptoms controlled on pantoprazole Scoliosis of lumbar spine Mixed incontinence urge and stress (male)(female ) documented as of this encounter (statuses as of 08/14/2023) Resolved Problems Problem Noted Date Diagnosed Date [...] as of this encounter (statuses as of 08/14/2023) Immunizations Name Administration Dates Next Due COVID-19 [...] Telephone Encounter - Maylin Barfield RN - 08/14/2023 9:19 AM EDT Pt Has refills of both trazadone and meloxicam. Pt advised to call the pharmacy * Telephone Encounter - Mary Alice Sherman OSA - 08/13/2023 4:06 PM EDT Patient calling stating she finished all her medications from PCP she has not slept in 2 nights andasking if she can have her medications refilled. She also needs her pain medications refilled. Pharm - [facility] documented in this encounter Plan of Treatment Upcoming Encounters Date Type Department Care Team (Late st Contact Info) Description 08/21/2023 2:00 PM EDT Scheduled Telephone [facility], [facility] [address] [facility] [place] [phone] Flower Stroud RDN [address] [place] [address] 08/31/2023 12:00 PM EDT Office Visit Family [address] [phone] Dionne Flores PA-C [address] [place] [address] [place] [address] 09/04/2023 4:00 PM EDT [facility] Visit [facility], [facility] [place] [address] Lana Lieberman RN [address] [place] [address] 10/12/2023 10:40 AM EDT Office Visit [address] [place] [phone] Gilbert Calloway MD [address] [place] [address] [place] [address] 04/04/2024 2:40 PM EST Office Visit Nephrology, [facility] [address] [place] [address] Tirso Shah MD [address] [place] [address] Health Maintenance Due Date Last Done Comments DTaP,Tdap,and Td Vaccines (1 - Tdap) 11/15/1957 Depression Monitoring 09/29/2020 09/30/2019 COVID-19 Vaccine ( - 2022- season) 2022 04/19/2020, 04/04/2020, 03/22/2020, Additional history exists Albumin/Creatinine Ratio 07/28/2023 023, 06/09/2020, 03/13/2019, Additional history exists TSH 07/28/2023 07/27/2022, 05/21, 06/09/2020, Additional history exists CKD PHOS USE SMARTSET 62707 10/05/202309/19, 06/08/2021, 09/07/2020, Additional history exists Influenza Vaccine (FLU shot) (Season Ended) 2023 01/10/2022, 11/18/2020, 12/06/2019, Additional history exists CKD HGB USE SMARTSET 67906 03/06/202403/06, 03/06/2023, 10/04/2022, Additional history exists Pneumococcal [...] filedocumented as of this encounter Care Teams Global Sales Executive Relationship Specialty Start Date End Date Gilbert Calloway MD [address] [place] [address] [place] [phone] PCP - General Family Medicine 07/30/23 documented as of this encounter
--- OUTSIDE RECORDS SUMMARY | 2023-11-03 17:38 | External Medical Summary | Summary of Care ---
Author Name Unknown Organization [facility] Address [address] [facility] [place] [address] Phone [phone] Care Team Providers Care Salesperson Men'S Hats Name Role Phone Gilbert Calloway MD Primary Care Provide r Reason for Visit * Reason Onset Date Comments [facility]: Maintenance 08/10/2023 Encounter Details Date Type Department Care Team (Late st Contact Info) Description 08/10/2023 12:15 PM EDT Scheduled Telephone [facility], [facility] [address] [facility] [place] [address] Coordinator, [facility] 132 [facility] [place] [address] Allergies Active Allergy Reactions Criticality Noted Date Comments Ergotamine 03/01/2000 vomit Nitroglycerin 03/14/2007 vomitting documented as of this encounter (statuses as of 08/10/2023) Medications Medication Sig Dispensed Refills Start Date [...] as of this encounter (statuses as of 08/10/2023) Active Problems Problem Noted Date Diagnosed Date 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[place] co ronary artery of [place] heart without angina pectoris Last Assessment & Plan: Stable no angina -continue rosuvastatin, metopropolol, Anxiety state Last Assessment & Plan: Stable on buspar, Primary hypertension Gastroesophageal reflux dise ase with esophagitis without hemorrhage Last Assessment & Plan: symptoms controlled on pantoprazole Scoliosis of lumbar spine Mixed incontinence urge and stress (male)(female ) documented as of this encounter (statuses as of 08/10/2023) Resolved Problems Problem Noted Date Diagnosed Date [...] as of this encounter (statuses as of 08/10/2023) Immunizations Name Administration Dates Next Due COVID-19 [...] Telephone Encounter - Elsy Harris LPN - 08/10/2023 11:34 AM EDT Images from the original note were not included. [facility] Follow-Up Call [facility] Subprogram: Focused Care Management (3-9 months) Follow Up Call Type: Routine follow up call / Status Check Acute issue requiring follow-up call: Other: f/u on weight, pt was on DTP. Unable to contact for 2 days Objective: 08/06/2023 2:13 PM 07/04/2023 1:17 PM 07/03/2023 1:06 PM 06/21/2023 2:00 PM 06/21/2023 1:30 PM VITALS ACROSS ENCOUNTERS BP 124/82 132/84 160/80 98/56 92/50 Pulse 86 78 76 80 Remote Patient Monitoring: Oxygen Needs: NO supplemental oxygen needs identified DME Needs: NO DME needs identified Medications: Current DTP: Other: torsemide 20 mg as needed for swelling, wt gain .2 lbs Subjective: Condition Status: LMTCB Current Concerns: Call to pt for status check unable to reach for 2 days while on DTP Review of [facility] pt's weight today is 157.4 lbs, WNL Pt's baseline weight per [facility] is 157 lbs Disposition: [place] [facility] [place] [place] and[place]or [facility] Care Team for further advice Future Visits Scheduled: Future Appointments-next 60 days Date/Time Provider Specialty Dept Phone 08/10/2023 12:15 PM CoordinatorIvan [facility] [phone] 08/21/2023 2:00 PM Flower Stroud RDN [facility] [phone] 08/31/2023 12:00 PM (Arrive by 11:45 AM) Dionne Flores PA-C Family Medicine [phone] 09/04/2023 4:00 PM Lana Lieberman RN [facility] [phone] 10/12/2023 10:40 AM (Arrive by 10:25 AM) Gilbert Calloway MD Family Medicine [phone] 04/04/2024 2:40 PM (Arrive by 2:25 PM) Tirso Shah MD Nephrology [phone] Elsy Harris LPN documented in this encounter Plan of Treatment Upcoming Encounters Date Type Department Care Team (Late st Contact Info) Description 08/21/2023 2:00 PM EDT Scheduled Telephone [facility], [facility] [address] [facility] [place] [address] Flower Stroud RDN [address] [facility] [place] [address] 08/31/2023 12:00 PM EDT Office Visit Family Medicine [address] [phone] Dionne Flores PA-C [address] [place] [address] [place] [address] 09/04/2023 4:00 PM EDT Home Visit [facility], [facility] [address] [place] [address] Lana Lieberman, KHARI [address] [place] [address] 10/12/2023 10:40 AM EDT Office Visit Family Medicine [address] [place] [phone] Gilbert Calloway MD [address] [place] [address] [place] [address] 04/04/2024 2:40 PM EST Office Visit Nephrology, [facility] [address] [facility] [place] [address] Tirso Shah MD [address] [place] [address] Health Maintenance Due Date Last Done Comments DTaP,Tdap,and Td Vaccines (1 - Tdap) 11/15/1957 Depression Monitoring 09/29/2020 09/30/2019 COVID-19 Vaccine (5 - 2022- season) 2022 04/19/2020, 04/04/2020, 03/22/2020, Additional history exists Albumin/Creatinine Ratio 07/28/2023 023, 06/09/2020, 03/13/2019, Additional history exists TSH 07/28/2023 07/27/2022, 04, 06/09/2020, Additional history exists CKD PHOS USE SMARTSET 08310 10/05/202309/19, 06/08/2021, 09/07/2020, Additional history exists Influenza Vaccine (FLU shot) (Season Ended) 2023 01/10/2022, 11/18/2020, 12/06/2019, Additional history exists CKD HGB USE SMARTSET 18772 03/06/202403/06, 03/06/2023, 10/04/2022, Additional history exists Pneumococcal [...] filedocumented as of this encounter Care Teams Salesperson Men'S Hats Relationship Specialty Start Date End Date Gilbert Calloway MD [address] [place] [address] [place] [phone] PCP - General Family Medicine 07/30/23 documented as of this encounter
--- OUTSIDE RECORDS SUMMARY | 2023-11-03 17:38 | External Medical Summary | Summary of Care ---
Author Name Unknown Organization [facility] Address [address] [place] [address] Phone [phone] Care Team Providers Care Employment Security Officer Name Role Phone Gilbert Calloway MD Primary Care Provide r Reason for Visit * Reason Comments eRx-Medication Refill Encounter Details Date Type Department Care Team (Late st Contact Info) Description 08/24/2023 Refill Family Medicine [address] [place] [phone] Gilbert Calloway MD [address] [place] [address] [place] [phone] Allergies Active Allergy Reactions Criticality Noted Date [...] MOUTH TWICE DAILY 60 Tablet 08/24/2023 Active Eliquis 5 MG Oral Tablet (Apixaban) TAKE ONE TABLET BY MOUTH TWICE DAILY 180 Tablet 3 08/27/2023 Active Eliquis 5 MG Oral Tablet 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[place] co ronary artery of [place] heart without angina pectoris Last Assessment & [...] Telephone Encounter - Gilbert Calloway MD - 08/27/2023 9:46 AM EDT Signed Prescriptions: Disp Refills Eliquis 5 MG Oral Tablet (Apixaban) 180 Ta*3 Sig: TAKE ONE TABLET BY MOUTH TWICE DAILY Authorizing Provider: GILBERT CALLOWAY * Telephone Encounter - Alicia Atwood [facility] - 08/27/2023 7:52 AM EDTPending Prescriptions: Disp Refills Eliquis 5 MG Oral Tablet [Pharmacy Med Nam*180 Ta*3 Sig: TAKE ONE TABLET BY MOUTH TWICE DAILY * Telephone Encounter - Alicia Atwood RPh - 08/27/2023 7:52 AM EDT Pharmacists cannot authorize refills for meds listed as "historical" in chart. Please approve if appropriate. Thanks, Alicia Atwood Clinical Pharmacist [facility] ([facility]) [phone] 08/27/2023, 7:52 AM documented in this encounter Plan of Treatment Upcoming Encounters Date Type Department Care Team (Late st Contact Info) Description 08/31/2023 12:00 PM EDT Office Visit Family [address] [phone] Dionne Flores PA-C [address] [place] [address] [place] [phone] 09/04/2023 4:00 PM EDT Home Visit [facility] [address] [facility] [place] [address] Lana Lieberman, RN 132 [facility] [place] [address] 10/12/2023 10:40 AM EDT Office Visit Family [address] [place] [phone] Gilbert Calloway MD [address] [place] [address] [place] [address] 04/04/2024 2:40 PM EST Office Visit NephrologyCaroline [address] [place] [address] Tirso Shah MD [address] [facility] [place] [address] Health Maintenance Due Date Last Done Comments DTaP,Tdap,and Td Vaccines (1 - Tdap) 11/15/1957 Depression Monitoring 09/29/2020 09/30/2019 COVID-19 Vaccine ( - season) 2022 04/19/2020, 04/04/2020, 03/22/2020, Additional history exists Albumin/Creatinine Ratio 07/28/2023 023, 06/09/2020, 03/13/2019, Additional history exists TSH 07/28/2023 07/27/2022, 05/21, 06/09/2020, Additional history exists CKD PHOS USE SMARTSET 08398 10/05/202309/19, 06/08/2021, 09/07/2020, Additional history exists Influenza Vaccine (FLU shot) (#1) 2023 01/10/2022, 11/18/2020, 12/06/2019, Additional history exists CKD HGB USE SMARTSET 83003 03/06/202403/06, 03/06/2023, 10/04/2022, Additional history exists Pneumococcal [...] filedocumented as of this encounter Care Teams Employment Security Officer Relationship Specialty Start Date End Date Gilbert Calloway MD [address] [place] [address] [place] [phone] PCP - General Family Medicine 07/30/23 documented as of this encounter
--- OUTSIDE RECORDS SUMMARY | 2023-11-03 17:38 | External Medical Summary | Summary of Care ---
Author Name Unknown Organization [facility] Address [address] [facility] [place] [address] Phone [phone] Care Team Providers Care Patch Finisher Name Role Phone Gilbert Calloway MD Primary Care Provide r Reason for Visit * Reason Onset Date Comments [facility]: Maintenance 08/09/2023 Encounter Details Date Type Department Care Team (Late st Contact Info) Description 08/09/2023 10:45 AM EDT Scheduled Telephone [facility], [facility] 132 [facility] [place] [address] Coordinator, [facility] 132 [facility] [place] [address] Allergies Active Allergy Reactions Criticality Noted Date Comments Ergotamine 03/01/2000 vomit Nitroglycerin 03/14/2007 vomitting documented as of this encounter (statuses as of 08/09/2023) Medications Medication Sig Dispensed Refills Start Date [...] as of this encounter (statuses as of 08/09/2023) Active Problems Problem Noted Date Diagnosed Date [...] discuss her pain concerns. She is aware [facility] does not manage chronic pain meds. 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 Last Assessment & Plan: Stable no angina -continue rosuvastatin, metopropolol, Anxiety state Last Assessment & Plan: Stable on buspar, Primary hypertension Gastroesophageal reflux dise ase with esophagitis without hemorrhage Last Assessment & Plan: symptoms controlled on pantoprazole Scoliosis of lumbar spine Mixed incontinence urge and stress (male)(female ) documented as of this encounter (statuses as of 08/09/2023) Resolved Problems Problem Noted Date Diagnosed Date [...] as of this encounter (statuses as of 08/09/2023) Immunizations Name Administration Dates Next Due COVID-19 [...] Telephone Encounter - Komal Escudero RN - 08/09/2023 9:57 AM EDT Images from the original note were not included. [facility] Home Telephonic Nurse Follow-Up Call [facility] Subprogram: Focused Care Management (3-9 months) Follow Up Call Type: 48 hour follow up Acute issue requiring follow-up call: Other: F/U on DTP. Objective: 08/06/2023 2:13 PM 07/04/2023 1:17 PM 07/03/2023 1:06 PM 06/21/2023 2:00 PM 06/21/2023 1:30 PM VITALS ACROSS ENCOUNTERS BP 124/82 132/84 160/80 98/56 92/50 Pulse 86 78 76 80 Remote Patient Monitoring: Oxygen Needs: NO supplemental oxygen needs identified DME Needs: NO DME needs identified Medications: New medication(s) added: Torsemide 20 mg daily x 3. Should be fnished. Left VM message for pt to call back [facility]. Subjective: Condition Status: Unable to contact pt. Left VM to call back [facility]., Current Concerns: Weight is essentially unchanged from yesterday. 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 [employer] Future Visits Scheduled: Future Appointments-next 60 days Date/Time Provider Specialty Dept Phone 08/09/2023 10:45 AM Coordinator, Ivan Garner [facility] [phone] 08/21/2023 2:00 PM Flower Stroud RDN [facility] [phone] 08/31/2023 12:00 PM (Arrive by 11:45 AM) Dionne Flores PA-C Family Medicine [phone] 09/04/2023 4:00 PM Lana Lieberman RN [facility] [phone] 10/12/2023 10:40 AM (Arrive by 10:25 AM) Gilbert Calloway MD Family Medicine [phone] 04/04/2024 2:40 PM (Arrive by 2:25 PM) Tirso Shah MD Nephrology [phone] Komal Escudero RN documented in this encounter Plan of Treatment Upcoming Encounters Date Type Department Care Team (Late st Contact Info) Description 08/10/2023 12:15 PM EDT Scheduled Telephone [facility], [facility] 132 [facility] [place] [address] Coordinator, Ivan Garner [address] [facility] [place] [address] 08/21/2023 2:00 PM EDT Scheduled Telephone [facility], [facility] [address] [facility] [place] [address] Flower Stroud RDN [address] [place] [address] 08/31/2023 12:00 PM EDT Office Visit Family Medicine [address] [phone] Dionne Flores PA-C [address] [place] [address] [place] [phone] 09/04/2023 4:00 PM EDT Home Visit [facility], [facility] [address] [place] [address] Lana Lieberman, KHARI [address] [place] [address] 10/12/2023 10:40 AM EDT Office Visit Family Medicine [address] [place] [phone] Gilbert Calloway MD [address] [place] [address] [place] [address] 04/04/2024 2:40 PM EST Office Visit Nephrology, [facility] 200 [facility] [place] [address] Tirso Shah MD 200 [facility] [place] [address] Health Maintenance Due Date Last Done Comments DTaP,Tdap,and Td Vaccines (1 - Tdap) 11/15/1957 Depression Monitoring 09/29/2020 09/30/2019 COVID-19 Vaccine ( - season) 2022 04/19/2020, 04/04/2020, 03/22/2020, Additional history exists Albumin/Creatinine Ratio 07/28/2023 023, 06/09/2020, 03/13/2019, Additional history exists TSH 07/28/2023 07/27/2022, 05/21, 06/09/2020, Additional history exists CKD PHOS USE SMARTSET 52798 10/05/202309/19, 06/08/2021, 09/07/2020, Additional history exists Influenza Vaccine (FLU shot) (Season Ended) 2023 01/10/2022, 11/18/2020, 12/06/2019, Additional history exists CKD HGB USE SMARTSET 49508 03/06/202403/06, 03/06/2023, 10/04/2022, Additional history exists Pneumococcal [...] filedocumented as of this encounter Care Teams Patch Finisher Relationship Specialty Start Date End Date Gilbert Calloway MD [address] [place] [address] [place] [address] PCP - General Family Medicine 07/30/23 documented as of this encounter
--- OUTSIDE RECORDS SUMMARY | 2023-11-03 17:38 | External Medical Summary | Summary of Care ---
Author Name Unknown Organization [facility] Address [address] [place] [address] Phone [phone] Care Team Providers Care Second Hand Paper Machine Name Role Phone Gilbert Calloway MD Primary Care Provide r Reason for Visit * Reason Comments eRx-Medication Refill Encounter Details Date Type Department Care Team (Late st Contact Info) Description 08/22/2023 Refill Family Medicine [address] [place] [phone] Con Coughlin MD [address] [place] [address] [place] [phone] [place] NOS Allergies Active Allergy Reactions Criticality Noted Date Comments Ergotamine 03/01/2000 vomit Nitroglycerin 03/14/2007 vomitting documented as of this encounter (statuses as of 08/24/2023) Medications Medication Sig Dispensed Refills Start Date [...] NEEDED FOR anxiety 30 Tablet 07/04/2023 Active Loperamide HCl 2 MG Oral Capsule (Imodium)Indication s:Chronic diarrhea TAKE ONE CAPSULE FOUR TIMES DAILY NEEDED 60 Capsule 07/20/2023 Active Meloxicam 7.5 MG Oral Tablet (Mobic)Indications: [...] TWICE DAILY 60 Tablet 5 08/24/2023 Active Calcitriol 0.25 MCG Oral Capsule (Rocaltrol) Take 1 Capsule by mouth in the morning. Take 1 capsule by mouth Sun, Sun, Sun. 45 Capsule 1 02/07/2023 08/24/19 24 Discontinued busPIRone HCl 10 MG Oral Tablet (Buspar)Indications :Anxiety state TAKE ONE TABLET BY MOUTH TWICE DAILY 60 Tablet 5 03/07/2023 08/24/19 24 Discontinued documented as of this encounter (statuses as of 08/24/2023) Active Problems Problem Noted Date Diagnosed Date [...] Chronic atrial fibrillation 03/01/2021 Overview: new onset, [facility] on apixaban Last Assessment & 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[place] co ronary artery of [place] heart without angina pectoris Last Assessment & Plan: Stable no angina -continue rosuvastatin, metopropolol, Anxiety state Last Assessment & Plan: Stable on buspar, Primary hypertension Gastroesophageal reflux dise ase with esophagitis without hemorrhage Last Assessment & Plan: symptoms controlled on pantoprazole Scoliosis of lumbar spine Mixed incontinence urge and stress (male)(female ) documented as of this encounter (statuses as of 08/24/2023) Resolved Problems Problem Noted Date Diagnosed Date [...] as of this encounter (statuses as of 08/24/2023) Immunizations Name Administration Dates Next Due COVID-19 [...] Telephone Encounter - Gilbert Calloway MD - 08/24/2023 7:45 AM EDT Signed Prescriptions: Disp Refills Calcitriol 0.25 MCG Oral Capsule (Rocaltro*45 Cap*1 Sig: TAKE 1 CAPSULE ON MONDAYS, WEDNESDAYS, AND FRIDAYS Authorizing Provider: GILBERT CALLOWAY busPIRone HCl 10 MG Oral Tablet (Buspar) 60 Tab*5 Sig: TAKE ONE TABLET BY MOUTH TWICE DAILY Authorizing Provider: GILBERT CALLOWAY * Telephone Encounter - Jennifer Jiménez [facility] - 08/24/2023 7:32 AM EDT Pending Prescriptions: Disp Refills Calcitriol 0.25 MCG Oral Capsule (Rocaltro*45 Cap*1 Sig: TAKE 1 CAPSULE ON MONDAYS, WEDNESDAYS, AND FRIDAYS busPIRone HCl 10 MG Oral Tablet (Buspar) 60 Tab*5 Sig: TAKE ONE TABLET BY MOUTH TWICE DAILY * Telephone Encounter - Jennifer Jiménez RP - 08/24/2023 7:32 AM EDT Refill pharmacists currently not authorized to approve refills for this class of medication per refill protocol. Please approve if appropriate. Thank you, Jennifer Jiménez, PharmD. Clinical Pharmacist Pharmacy Refill Call Center 08/24/2023, 7:32 AM documented in this encounter Plan of Treatment Upcoming Encounters Date Type Department Care Team (Late st Contact Info) Description 08/31/2023 12:00 PM EDT Office Visit Family Medicine [address] [place] [phone] Dionne Flores PA-C [address] [place] [address] [place] [address] 09/04/2023 4:00 PM EDT Home Visit [facility] [address] [place] [address] Lana Lieberman, KHARI [address] [place] [address] 10/12/2023 10:40 AM EDT Office Visit Family Medicine [address] [place] [phone] Gilbert Calloway MD [address] [place] [address] [place] [address] 04/04/2024 2:40 PM EST Office [facility] [place] [facility] [place] [address] Tirso Shah MD [address] [place] [address] Health Maintenance Due Date Last Done Comments DTaP,Tdap,and Td Vaccines (1 - Tdap) 11/15/1957 Depression Monitoring 09/29/2020 09/30/2019 COVID-19 Vaccine (5 - 2022- season) 2022 04/19/2020, 04/04/2020, 03/22/2020, Additional history exists Albumin/Creatinine Ratio 07/28/2023 023, 06/09/2020, 03/13/2019, Additional history exists TSH 07/28/2023 07/27/2022, 05/21, 06/09/2020, Additional history exists CKD PHOS USE SMARTSET 47776 10/05/202309/19, 06/08/2021, 09/07/2020, Additional history exists Influenza Vaccine (FLU shot) (#1) 2023 01/10/2022, 11/18/2020, 12/06/2019, Additional history exists CKD HGB USE SMARTSET 23339 03/06/202403/06, 03/06/2023, 10/04/2022, Additional history exists Pneumococcal [...] unspecified documented in this encounter Care Teams Second Hand Paper Machine Relationship Specialty Start Date End Date Gilbert Calloway MD [address] [place] [address] [place] [phone] PCP - General Family Medicine 07/30/23 documented as of this encounter
--- OUTSIDE RECORDS SUMMARY | 2023-11-03 17:38 | External Medical Summary | Summary of Care ---
Author Name Unknown Organization [facility] Address [address] [place] [address] Phone [phone] Care Team Providers Care Career Education Teacher Name Role Phone Gilbert Calloway MD Primary Care Provide r Reason for Visit * Reason Onset Date Comments Advice 07/20/2023 case management 07/20/2023 Encounter Details Date Type Department Care Team (Late st Contact Info) Description 07/20/2023 Telephone Family Medicine [address] [place] [phone] Dionne Flores PA-C [address] [place] [address] [place] [phone] Advice; case management Allergies Active Allergy Reactions Criticality Noted Date Comments Ergotamine 03/01/2000 vomit Nitroglycerin 03/14/2007 vomitting documented as of this encounter (statuses as of 08/09/2023) Medications Medication Sig Dispensed Refills Start Date End Date Status Eliquis 5 MG Oral Tablet Take 1 Tablet by mouth in the morning and 1 Tablet before bedtime. 3 Active Levothyroxine Sodium 100 MCG Oral Tablet (Levoxyl) Take 1 Tablet by mouth in the morning. (at least 30 min prior to breakfast or other meds). 90 Tablet 3 3 Active Benzonatate 100 MG Oral Capsule (Tessalon Perles)Indications :Viral URI with cough Take 1 Capsule by mouth 3 times a day as needed for Cough. 30 Capsule 1 3 Active Calcitriol 0.25 MCG Oral Capsule (Rocaltrol) Take 1 Capsule by mouth in the morning. Take 1 capsule by mouth Mon, Wed, Fri. 45 Capsule 1 3 Active busPIRone HCl 10 MG Oral Tablet (Buspar)Indication s:Anxiety state TAKE ONE TABLET BY MOUTH TWICE DAILY 60 Tablet 5 4 Active Losartan Potassium 25 MG Oral Tablet (Cozaar)Indication s:Hypertensive heart and kidney disease with chronic diastolic congestive heart failure and stage 3b chronic kidney disease (HCC) Take 1 Tablet by mouth in the morning. 90 Tablet 1 4 Active Acetaminophen 500 MG Oral Tablet (Tylenol)Indicatio ns:Generalized osteoarthritis Take 1 Tablet by mouth in the morning and 1 Tablet at noon and 1 Tablet before bedtime. 100 Tablet 4 Active Pantoprazole Sodium 40 MG Oral Tablet Delayed Release (Protonix)Indicati ons:Gastric ulcer without hemorrhage or perforation, unspecified chronicity,Gastroe sophageal reflux disease with esophagitis without hemorrhage TAKE ONE TABLET TWICE DAILY 180 Tablet 1 4 Active Rosuvastatin Calcium 10 MG Oral Tablet (Crestor)Indicatio ns:Dyslipidemia, goal LDL below 100 TAKE ONE TABLET BY MOUTH AT BEDTIME 90 Tablet 1 4 Active Metoprolol Succinate ER 50 MG Oral Tablet Extended Release 24 Hour (toPROL XL) TAKE ONE TABLET BY MOUTH IN THE MORNING 90 Tablet 1 4 Active hydrOXYzine HCl 10 MG Oral Tablet (Atarax) TAKE ONE TABLET BY MOUTH EVERY DAY NEEDED FOR anxiety 30 Tablet 1 4 Active traZODone HCl 150 MG Oral Tablet (Desyrel)Indicatio ns:Persistent insomnia One at bedtime 30 Tablet 5 3 07/30/19 24 Discontinued(Ref ill) Ondansetron HCl 4 MG Oral Tablet (Zofran)Indication s:Nausea TAKE ONE TABLET BY MOUTH EVERY 6 HOURS NEEDED FOR NAUSEA 30 Tablet 1 4 08/07/19 24 Discontinued Torsemide 20 MG Oral Tablet (Demadex) Take 1 Tablet by mouth daily as needed (swelling, wt gain>2 lbs). 30 Tablet 4 08/02/19 24 Discontinued(Ref ill) documented as of this encounter (statuses as [...] discuss her pain concerns. She is aware [facility] does not manage chronic pain meds. With her history of confusion, would recommend against use of narcotic medication. Mild aortic stenosis 07/27/2021 Last Assessment & Plan: Following with cardiology Aortocoronary bypass status 03/09/2021 Chronic atrial fibrillation 03/01/2021 Overview: new onset, [facility] on apixaban Last Assessment & 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[place] co ronary artery of [place] heart without angina pectoris Last Assessment & [...] 06/26/2017 Overview: hgb 7.4 admitted [facility] CKD (chronic kidney disease) stage [...] encounter Miscellaneous Notes * Telephone Encounter - Opal Conway RN - 08/09/2023 9:34 AM EDT Attempted to contact patient. No answer. Left message with CM direct line phone number. [facility]. * Telephone Encounter - Maylin Barfield RN - 07/30/2023 12:58 PM EDT forwarded to case management * Telephone Encounter - Sharmaine Saldana OSA - 07/20/2023 8:58 AM EDT Pt would like to know if nurse Opal is still at the clinic. Please let Pt know [phone] documented in this encounter Plan of Treatment Upcoming Encounters Date Type Department Care Team (Late st Contact Info) Description 08/09/2023 10:45 AM EDT Scheduled Telephone [facility] [place], [facility] [address] [place] [address] Coordinator, [facility] [address] [place] [address] 08/21/2023 2:00 PM EDT Scheduled Telephone [facility], [facility] [address] [facility] [place] [address] Flower Stroud RDN [address] [facility] [place] [address] 08/31/2023 12:00 PM EDT Office Visit Family [address] [phone] Dionne Flores PA-C [address] [place] [address] [place] [address] 09/04/2023 4:00 PM EDT [facility], [facility] [address] [facility] [place] [address] Lana Lieberman RN [address] [place] [address] 10/12/2023 10:40 AM EDT Office Visit [address] [phone] Gilbert Calloway MD [address] [place] [address] [place] [address] 04/04/2024 2:40 PM EST Office Visit Nephrology, [facility] [address] [place] [address] Tirso Shah MD [address] [facility] [place] [address] Health Maintenance Due Date Last Done Comments DTaP,Tdap,and Td Vaccines (1 - Tdap) 11/15/1957 Depression Monitoring 09/29/2020 09/30/2019 COVID-19 Vaccine (5 - 2022-24 season) 2022 04/19/2020, 04/04/2020, 03/22/2020, Additional history exists Albumin/Creatinine Ratio 07/28/2023 023, 06/09/2020, 03/13/2019, Additional history exists TSH 07/28/2023 07/27/2022, 05/21, 06/09/2020, Additional history exists CKD PHOS USE SMARTSET 77822 10/05/202309/19, 06/08/2021, 09/07/2020, Additional history exists Influenza Vaccine (FLU shot) (Season Ended) 2023 01/10/2022, 11/18/2020, 12/06/2019, Additional history exists CKD HGB USE SMARTSET 53575 03/06/202403/06, 03/06/2023, 10/04/2022, Additional history exists Pneumococcal [...] as of this encounter Care Teams Career Education Teacher Relationship Specialty Start Date End Date Gilbert Calloway MD [address] [place] [address] [place] [phone] PCP - General Family Medicine 07/30/23 documented as of this encounter
--- OUTSIDE RECORDS SUMMARY | 2023-11-03 17:39 | External Medical Summary | Summary of Care ---
Author Name Unknown Organization [facility] Address [address] [place] [address] Phone [phone] Care Team Providers Care Solar Lab Technician Name Role Phone Gilbert Calloway MD Primary Care Provide r Reason for Visit * Reason Comments eRx-Medication Refill Encounter Details Date Type Department Care Team (Late st Contact Info) Description 08/06/2023 Refill Family Medicine [address] [place] [phone] Con Coughlin MD [address] [place] [address] [place], [place] [phone] Nausea Allergies Active Allergy Reactions Criticality Noted Date Comments Ergotamine 03/01/2000 vomit Nitroglycerin 03/14/2007 vomitting documented as of this encounter (statuses as of 08/07/2023) Medications Medication Sig Dispensed Refills Start Date [...] FOR NAUSEA 30 Tablet 1 08/07/2023 Active Ondansetron HCl 4 MG Oral Tablet (Zofran)Indications :Nausea TAKE ONE TABLET BY MOUTH EVERY 6 HOURS NEEDED FOR NAUSEA 30 Tablet 1 04/02/2023 08/07/19 24 Discontinued documented as of this encounter (statuses as of 08/07/2023) Active Problems Problem Noted Date Diagnosed Date [...] Pro-BNP Her weights are stable on [facility]. She appears euvolemic 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[place] co ronary artery of [place] heart without angina pectoris Last Assessment & Plan: Stable no angina -continue rosuvastatin, metopropolol, Anxiety state Last Assessment & Plan: Stable on buspar, Primary hypertension Gastroesophageal reflux dise ase with esophagitis without hemorrhage Last Assessment & Plan: symptoms controlled on pantoprazole Scoliosis of lumbar spine Mixed incontinence urge and stress (male)(female ) documented as of this encounter (statuses as of 08/07/2023) Resolved Problems Problem Noted Date Diagnosed Date [...] as of this encounter (statuses as of 08/07/2023) Immunizations Name Administration Dates Next Due COVID-19 [...] money to get more. Never true 03/07/2023 Sex and Gender Information Value Date Recorded Sex Assigned at Female 12/11/2022 6:31 PM EDT Gender Identity Female 12/11/2022 6:31 PM EDT Sexual Orientation Straight 05/16/2023 10 :36 AM EDT Job Start Date Occupation Industry Not on file Not on file Not on file documented as of this encounter Miscellaneous Notes * Telephone Encounter - Gilbert Calloway MD - 08/07/2023 8:31 AM EDT Signed Prescriptions: Disp Refills Ondansetron HCl 4 MG Oral Tablet (Zofran) 30 Tab*1 Sig: TAKE ONE TABLET BY MOUTH EVERY 6 HOURS NEEDED FOR NAUSEA Authorizing Provider: GILBERT CALLOWAY * Telephone Encounter - Jennifer Jiménez [facility] - 08/07/2023 8:09 AM EDT Pending Prescriptions: Disp Refills Ondansetron HCl 4 MG Oral Tablet (Zofran) 30 Tab*1 Sig: TAKE ONE TABLET BY MOUTH EVERY 6 HOURS NEEDED FOR NAUSEA * Telephone Encounter - Jennifer Jiménez [facility] - 08/07/2023 8:08 AM EDT Protocol not met - pt has heart failure documented in this encounter Plan of Treatment Upcoming Encounters Date Type Department Care Team (Late st Contact Info) Description 08/08/2023 10:45 AM EDT Scheduled Telephone [facility], [facility] [address] [facility] [place] [address] Coordinator, [facility] [address] [place] [address] 08/21/2023 2:00 PM EDT Scheduled Telephone [facility], [facility] [address] [facility] [place] [address] Flower Stroud RDN [address] [facility] [place] [address] 08/31/2023 12:00 PM EDT Office Visit Family [address] [phone] Dionne Flores PA-C [address] [place] [address] [place] [address] 09/04/2023 4:00 PM EDT [facility] Visit [facility] [place], [facility] [address] [facility] [place] [address] Lana Lieberman, KHARI [address] [place] [address] 10/12/2023 10:40 AM EDT Office [place] [address] [place] [phone] Gilbert Calloway MD [address] [place] [address] [place] [address] 04/04/2024 2:40 PM EST Office Visit Nephrology, [facility] [address] [facility] [place] [address] Tirso Shah MD [address] [facility] [place] [address] Health Maintenance Due Date Last Done Comments DTaP,Tdap,and Td Vaccines (1 - Tdap) 11/15/1957 Depression Monitoring 09/29/2020 09/30/2019 COVID-19 Vaccine (5 - 2022- season) 2022 04/19/2020, 04/04/2020, 03/22/2020, Additional history exists Albumin/Creatinine Ratio 07/28/2023 023, 06/09/2020, 03/13/2019, Additional history exists TSH 07/28/2023 07/27/2022, 05/21, 06/09/2020, Additional history exists CKD PHOS USE SMARTSET 17580 10/05/202309/19, 06/08/2021, 09/07/2020, Additional history exists Influenza Vaccine (FLU shot) (Season Ended) 2023 01/10/2022, 11/18/2020, 12/06/2019, Additional history exists CKD HGB USE SMARTSET 10533 03/06/202403/06, 03/06/2023, 10/04/2022, Additional history exists Pneumococcal [...] alone documented in this encounter Care Teams Solar Lab Technician Relationship Specialty Start Date End Date Gilbert Calloway MD [address] [place] [address] [place] [phone] PCP - General Family Medicine 07/30/23 documented as of this encounter
--- OUTSIDE RECORDS SUMMARY | 2023-11-03 17:39 | External Medical Summary | Summary of Care ---
Author Name Unknown Organization [facility] Address [address] [place] [address] Phone [phone] Care Team Providers Care Dimension Warehouse Supervisor Name Role Phone Gilbert Calloway MD Primary Care Provide r Reason for Visit * Reason Comments [facility]: Maintenance Encounter Details Date Type Department Care Team (Late st Contact Info) Description 08/06/2023 2:30 PM EDT [facility], [facility] [place] [address] Lana Lieberman, RN [address] [place] [address] Allergies Active Allergy Reactions Criticality Noted Date Comments Ergotamine 03/01/2000 vomit Nitroglycerin 03/14/2007 vomitting documented as of this encounter (statuses as of 08/06/2023) Medications Medication Sig Dispensed Refills Start Date [...] TWICE DAILY 60 Tablet 5 03/07/2023 Active Ondansetron HCl 4 MG Oral Tablet (Zofran)Indications:N ausea TAKE ONE TABLET BY MOUTH EVERY 6 HOURS NEEDED FOR NAUSEA 30 Tablet 1 04/02/2023 Active Losartan Potassium 25 MG Oral Tablet [...] wt gain>2 lbs). 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 Last Assessment & Plan: Stable no angina -continue rosuvastatin, metopropolol, Anxiety state Last Assessment & Plan: Stable on buspar, Primary hypertension Gastroesophageal reflux dise ase with esophagitis without hemorrhage Last Assessment & Plan: symptoms controlled on pantoprazole Scoliosis of lumbar spine Mixed incontinence urge and stress (male)(female ) documented as of this encounter (statuses as of 08/06/2023) Resolved Problems Problem Noted Date Diagnosed Date [...] as of this encounter (statuses as of 08/06/2023) Immunizations Name Administration Dates Next Due COVID-19 [...] Sign Reading Time Taken Comments Blood Pressure 124/82 08/06/2023 2:13 PM EDT Pulse 86 08/06/2023 2:13 PM EDT Temperature 36.4 C (97.5 F) 08/06/2023 2:13 PM ED T Respiratory Rate 16 08/06/2023 2:13 PM EDT Oxygen Saturation 97% 08/06/2023 2:13 PM EDT Inhaled Oxygen Concentration - - Weight - - Height - - Body Mass Index - - documented in this encounter Progress Notes * William Daniel, RN - 08/06/2023 2:04 PM EDT [facility] Visit Date: 08/06/2023 Time: 2:04 PM Name: Zoya Howard : 1938 Current Concerns: Situation: Pt seen today by [facility] crm administrator for routine follow-up visit. Pt verbalizes feeling SOB, weight currently up 5 lbs. Pt is on day 3/5 of DTP. Reports that she initially did not start DTP when instructed due to "peeing so much." Explained reason for frequent urination with DTP, and pt verbalized understanding that increased urination indicates DTP is working. Pt c/o incontinence r/t diuretic, Lana, KHARICM reinforced use of incontinence products. Pt demonstrating increased anxiety at time of visit. Tearful, stating that she is "going backwards"and feels that she is doing this to herself by "feeling sorry for myself." Discussed referral to behavioral health, pt refuses at this time stating that she knows how to fix the way she is feeling, and she does not need anyones help. Pt states "See now that I'm talking to you I see all the problemsand I know why I'm going backwards, and I know what to do to fix it." Pt verbalizes "Everything is a whole different color now." States that she will leave apartment, go to apartment building activities, spend some time outside, go to grocery store. Pt states that she has been isolating herself, causing feelings of depression. PHQ9 and GAD2 completed, see below. Provided crisis line phone number.Denies suicidal ideations, intent to harm self/others. Discussed pt wanting to move to new apartment building; offered names and information of other nearby apartment complexes and reminded pt that information on these apartment buildings was provided to pt by [facility] at earlier date. Pt reports that she has not had any caregivers for one week, but also recalls telling caregivers that she does not need their help, unsure if she "fired" caregivers. Provided with phone number for [facility] to determine caregiver schedule/reason for no caregivers last week. Background: PMH includes: Anxiety, Afib, CHF, HTN, CKD Utilization: No recent utilization Last utilization [facility] 03/16/23 for CP Assessment: VS WNL Heart R&R regular Lungs diminished bilaterally +1 pitting edema to BLE Per pt report: Voiding without difficulty Bowels WNL Appetite good Social Hx: Lives alone in one bedroom apartment at [facility]. DME: Home Health Agency: Had caregivers through [employer], as of last week no one showing up for schedule shifts, educated to call [employer] to discuss, provided with [employer] phone number. Physical Exam: BP 124/82 (BP Site: Left Arm, BP Position: Sitting, BP Cuff Size: Regular) | Pulse 86 | Temp 36.4 C (97.5 F) (Tympanic) | Resp 16 | SpO2 97% Pain 0 Physical Exam Constitutional: Appearance: Normal appearance. Cardiovascular: Rate and Rhythm: Normal rate and regular rhythm. Pulmonary: Effort: Pulmonary effort is normal. Breath sounds: Decreased air movement present. Decreased breath sounds present. Abdominal: General: Bowel sounds are normal. Palpations: Abdomen is soft. Musculoskeletal: Right lower le+ Pitting Edema present. Left lower le+ Pitting Edema present. Skin: General: Skin is warm and dry. Capillary Refill: Capillary refill takes 2 to 3 seconds. Neurological: Mental Status: She is alert and oriented to person, place, and time. Psychiatric: Mood and Affect: Mood is anxious and depressed. Affect is tearful. Behavior: Behavior is cooperative. Thought Content: Thought content does not include suicidal ideation. Problems/Symptoms: Review of Systems Constitutional: Negative. HENT: Negative. Eyes: Negative. Cardiovascular: Positive for leg swelling. Endocrine: Negative. Musculoskeletal: Positive for gait problem. Skin: Negative. Psychiatric/Behavioral: Negative for suicidal ideas. The patient is nervous/anxious. Medication Reconciliation: (See medication list) Does patient take medications as ordered: Yes Patient Well Being: PHQ2/9: Measure Rehab initial measurement Rehab discharge measurement 1. Little interest or pleasure in doing things 3 - nearly every day 2. Feeling down, depressed, or hopeless 2 - more than half the days PHQ-2 Total (sum of all above): 5 1. Feeling nervous, anxious or on edge several days 2. Not being able to stop or control worrying not at all ALDO-2 Total (sum of all above): 1 Denies SI, provided with crisis line phone number at time of visit. Encouraged to complete some self care tasks, continue taking medication as ordered, and use PRN anxiety medication as needed. [facility]-10 Completed this Visit: No. Routine visit and No falls since last visit Advanced Care Planning: POLST. POLST in chart reflects current wishes, pt not in appropriate mental state for further discussion of ACP at time of visit Patient's Goals of Care: Stay out of the hospital Stay current with medication regimen every single day Reinforcement/Education: Educated on low Na diet as pt reports recently eating canned soup Confirmed patient initiated diuretic titration protocol. Reinforced 'call back instructions' if weight fails to return to baseline, urine outputs decrease and/or symptoms increase., Reinforced fluid/diet restrictions., and Reinforced sodium restriction., Reinforced safety education and fall prevention., and Reinforced medication regimen. Timing., Dosing., and Purspose. Treatment/Plan: Recommendation/Treatment/Plan: Continue medications as prescribed- no changes made as a result of today's visit Keep upcoming medical appointments; appointment dates and times reviewed with patient at time of visit Fall and safety precautions Low Na diet Elevate BLE PRN for edema Continue DTP today, and for 2 more days RN CM follow up in 4 weeks Home Interventions Provided: Reinforced current Plan of Care, including self-management and medication regimen Patient's 'Red Flags': N/V not relieved by Zofran Weight increase 2-3 lbs/24 hours SOB above baseline Patient Needs to Remember: Call [facility] at [phone] with any red flags, changes in condition, or concerns. Referrals Needed: N/A Follow Up: Is there cellular connectivity/connectivity in the home? Yes Does the patient have internet in the home? No Patient encouraged to call the intake phone number for all urgent but not emergent issues. Is the patient new to [employer] [facility] within the last 30 days? No, Assess appropriateness for upcoming telehealth visits. Cancel telehealth visits & schedule home visit with care steam setter(s)as indicated. Provider is in agreement with Plan of Care: Yes Scheduled to follow up with patient in 4 weeks on 09/03, and call if sooner appt is needed. . William Daniel RN 08/06/2023 2:04 PM documented in this encounter Plan of Treatment Upcoming Encounters Date Type Department Care Team (Late st Contact Info) Description 08/08/2023 10:45 AM EDT Scheduled Telephone [facility], [facility] [place] [address] Coordinator, [facility] [place] [address] 08/21/2023 2:00 PM EDT Scheduled Telephone [facility], [facility] [address] [facility] [place] [address] Flower Stroud RDN [address] [facility] [place] [address] 08/31/2023 12:00 PM EDT Office Visit Family Medicine [address] [phone] Dionne Flores PA-C [address] [place] [address] [place] [address] 09/04/2023 4:00 PM EDT [facility] Visit [facility], [facility] [address] [facility] [place] [address] Lana Lieberman RN [address] [facility] [place] [address] 10/12/2023 10:40 AM EDT Office Visit Family Medicine [address] [phone] Gilbert Calloway MD [address] [place] [address] [place] [address] 04/04/2024 2:40 PM EST Office Visit Nephrology, [address] [place] [address] Tirso Shah MD [address] [place], [place] [address] Health Maintenance Due Date Last Done Comments DTaP,Tdap,and Td Vaccines (1 - Tdap) 11/15/1957 Depression Monitoring 09/29/2020 09/30/2019 COVID-19 Vaccine ( season) 2022 04/19/2020, 04/04/2020, 03/22/2020, Additional history exists Albumin/Creatinine Ratio 07/28/2023 023, 06/09/2020, 03/13/2019, Additional history exists TSH 07/28/2023 07/27/2022, 05/21, 06/09/2020, Additional history exists CKD PHOS USE SMARTSET 28347 10/05/202309/19, 06/08/2021, 09/07/2020, Additional history exists Influenza Vaccine (FLU shot) (Season Ended) 2023 01/10/2022, 11/18/2020, 12/06/2019, Additional history exists CKD HGB USE SMARTSET 73305 03/06/202403/06, 03/06/2023, 10/04/2022, Additional history exists Pneumococcal [...] filedocumented as of this encounter Care Teams Dimension Warehouse Supervisor Relationship Specialty Start Date End Date Gilbert Calloway MD [address] [place] [address] [place] [address] PCP - General Family Medicine 07/30/23 documented as of this encounter
--- OUTSIDE RECORDS SUMMARY | 2023-11-03 17:39 | External Medical Summary | Summary of Care ---
Author Name Unknown Organization [facility] Address [address] [place] [address] Phone [phone] Care Team Providers Care Water/Wastewater Project Engineer Name Role Phone Unavailable Primary Care Provider Unavailabl e Reason for Visit * Reason Onset Date Comments [facility]: Maintenance 07/20/2023 Encounter Details Date Type Department Care Team (Late st Contact Info) Description 07/20/2023 Telephone [facility], [facility] [address] [facility] [place] [address] [facility], Nurse [facility] [address] [facility] [place] [address] [facility]: Maintenance Allergies Active Allergy Reactions Criticality Noted Date Comments Ergotamine 03/01/2000 vomit Nitroglycerin 03/14/2007 vomitting documented as of this encounter (statuses as of 07/30/2023) Medications Medication Sig Dispensed Refills Start Date [...] at bedtime 30 Tablet 5 01/17/2023 Active Calcitriol 0.25 MCG Oral Capsule (Rocaltrol) [...] AT BEDTIME 90 Tablet 1 05/03/2023 Active Torsemide 20 MG Oral Tablet (Demadex) Take 1 Tablet by mouth daily as needed (swelling, wt gain>2 lbs). 30 Tablet 06/17/2023 Active Metoprolol Succinate ER 50 MG Oral [...] Capsule before bedtime. 90 Capsule 5 10/10/2022 07/26/19 24 Discontinued documented as of this encounter (statuses as of 07/30/2023) Active Problems Problem Noted Date Diagnosed Date [...] as of this encounter (statuses as of 07/30/2023) Resolved Problems Problem Noted Date Diagnosed Date [...] as of this encounter (statuses as of 07/30/2023) Immunizations Name Administration Dates Next Due COVID-19 [...] Addendum Note - Con Garcia MD - 07/20/2023 1:45 PM EDTAddended by: CON GARCIA on: 07/20/2023 01:45 PM Modules accepted: Orders * Telephone Encounter - Con Garcia MD - 07/20/2023 1:44 PM EDT Concerns about drug interactions but I rather have her on this than hydrocodone which is what she prefers and misuses. * Telephone Encounter - Daiana Romano RN - 07/20/2023 12:42 PM EDT Call rec'd from pt requesting a call back from her RNCM regarding her Meloxicam. She reports she was previously prescribed Meloxicam by Dr. Flores and had asked for a refill but reports medication was discontinued and is unsure why. Per 03/01/23 home visit note, medication discontinued on med rec for med list clean up. documented in this encounter Plan of Treatment Upcoming Encounters Date Type Department Care Team (Late st Contact Info) Description 08/31/2023 12:00 PM EDT Office Visit Family [address] [place] [address] Dionne Flores PA-C [address] [place] [address] [place] [address] 10/12/2023 10:40 AM EDT Office Visit [address] [place] [address] Gilbert Calloway MD [address] [place] [address] [place] [address] Health Maintenance Due Date Last Done Comments DTaP,Tdap,and Td Vaccines (1 - Tdap) 11/15/1957 Depression Monitoring 09/29/2020 09/30/2019 COVID-19 Vaccine (5 - 2022- season) 2022 04/19/2020, 04/04/2020, 03/22/2020, Additional history exists Albumin/Creatinine Ratio 07/28/2023 023, 06/09/2020, 03/13/2019, Additional history exists TSH 07/28/2023 07/27/2022, 05/21, 06/09/2020, Additional history exists CKD PHOS USE SMARTSET 92466 10/05/202309/19, 06/08/2021, 09/07/2020, Additional history exists Influenza Vaccine (FLU shot) (Season Ended) 2023 01/10/2022, 11/18/2020, 12/06/2019, Additional history exists CKD HGB USE SMARTSET 85582 03/06/202403/06, 03/06/2023, 10/04/2022, Additional history exists Pneumococcal [...] as of this encounter Visit Diagnoses Diagnosis Bilateral shoulder region arthritis documented in this encounter
--- OUTSIDE RECORDS SUMMARY | 2023-11-03 17:39 | External Medical Summary | Summary of Care ---
Author Name Unknown Organization [facility] Address [address] [place] [address] Phone [phone] Care Team Providers Care Hearse Driver Name Role Phone Unavailable Primary Care Provider Unavailabl e Reason for Visit * Reason Onset Date Comments [facility]: Maintenance 07/20/2023 Encounter Details Date Type Department Care Team (Late st Contact Info) Description 07/20/2023 Telephone [facility], [facility] [address] [facility] [place] [address] [facility], Nurse [facility] [address] [facility] [place] [address] [facility]: Maintenance Allergies Active Allergy Reactions Criticality Noted Date Comments Ergotamine 03/01/2000 vomit Nitroglycerin 03/14/2007 vomitting documented as of this encounter (statuses as of 07/20/2023) Medications Medication Sig Dispensed Refills Start Date End Date Status Eliquis 5 MG Oral Tablet Take 1 Tablet by mouth in the morning and 1 Tablet before bedtime. 08/25/2022 Active Gabapentin 300 MG Oral Capsule (Neurontin)Indication s:DDD (degenerative disc disease), lumbar Take 1 Capsule by mouth in the morning and 1 Capsule at noon and 1 Capsule before bedtime. 90 Capsule 5 10/10/2022 Active Levothyroxine Sodium 100 MCG Oral Tablet (Levoxyl) Take 1 Tablet by mouth in the morning. (at least 30 min prior to breakfast or other meds). 90 Tablet 3 11/20/2022 Active Benzonatate 100 MG Oral Capsule (Tesfrancoisniurka Perlallen)Indications:Vi ral URI with cough Take 1 Capsule [...] TIMES DAILY NEEDED 60 Capsule 07/20/2023 Active documented as of this encounter (statuses as of 07/20/2023) Active Problems Problem Noted Date Diagnosed Date [...] her pain concerns. 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 Last Assessment & Plan: Stable no angina -continue rosuvastatin, metopropolol, Anxiety state Last Assessment & Plan: Stable on buspar, Primary hypertension Gastroesophageal reflux dise ase with esophagitis without hemorrhage Last Assessment & Plan: symptoms controlled on pantoprazole Scoliosis of lumbar spine Mixed incontinence urge and stress (male)(female ) documented as of this encounter (statuses as of 07/20/2023) Resolved Problems Problem Noted Date Diagnosed Date [...] as of this encounter (statuses as of 07/20/2023) Immunizations Name Administration Dates Next Due COVID-19 [...] encounter Miscellaneous Notes * Telephone Encounter - Daiana Romano RN [...] Description 08/31/2023 12:00 PM EDT Office Visit [address] [place] [phone] Dionne Flores PA-C [address] [place] [address] [place] [address] 10/12/2023 10:40 AM EDT Office Visit [address] [place] [phone] Gilbert Calloway MD [address] [place] [address] [place] [address] Health Maintenance Due Date Last Done Comments DTaP,Tdap,and Td Vaccines (1 - Tdap) 11/15/1957 COVID-19 Vaccine ( - season) 2022 04/19/2020, 04/04/2020, 03/22/2020, Additional history exists Albumin/Creatinine Ratio 07/28/2023 023, 06/09/2020, 03/13/2019, Additional history exists TSH 07/28/2023 07/27/2022, 05/21, 06/09/2020, Additional history exists CKD PHOS USE SMARTSET 13259 10/05/202309/19, 06/08/2021, 09/07/2020, Additional history exists Influenza Vaccine (FLU shot) (Season Ended) 2023 01/10/2022, 11/18/2020, 12/06/2019, Additional history exists CKD HGB USE SMARTSET 83460 03/06/202403/06, 03/06/2023, 10/04/2022, Additional history exists Pneumococcal [...]
--- OUTSIDE RECORDS SUMMARY | 2023-11-03 17:39 | External Medical Summary | Summary of Care ---
Author Name Unknown Organization [facility] Address [address] [facility] [place] [address] Phone [phone] Care Team Providers Care American Sign Language Teacher Name Role Phone Unavailable Primary Care Provider Unavailabl e Reason for Visit * Reason Comments eRx-Medication Refill Encounter Details Date Type Department Care Team (Late st Contact Info) Description 07/18/2023 Refill Family Medicine [address] [place] [phone] Mike Valles MD [address] [place] [address] [place] [address] Chronic diarrhea Allergies Active Allergy Reactions Criticality Noted Date Comments Ergotamine 03/01/2000 vomit Nitroglycerin 03/14/2007 vomitting documented as of this encounter (statuses as of 07/20/2023) Medications Medication Sig Dispensed Refills Start Date End Date Status Eliquis 5 MG Oral Tablet Take 1 Tablet by mouth in the morning and 1 Tablet before bedtime. 08/25/2022 Active Gabapentin 300 MG Oral Capsule (Neurontin)Indicati [...] TIMES DAILY NEEDED 60 Capsule 07/20/2023 Active Loperamide HCl 2 MG Oral Capsule (Imodium)Indication s:Chronic diarrhea TAKE ONE CAPSULE BY MOUTH FOUR TIMES DAILY NEEDED 60 Capsule 1 03/30/2023 07/20/19 24 Discontinued documented as of this encounter [...] discuss her pain concerns. She is aware [facility] does not manage chronic pain meds. With her history of confusion, would recommend against use of narcotic medication. 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 Last Assessment & [...] Overview: hgb 7.4 admitted [facility] CKD (chronic kidney disease) stage 3, GFR [...] Telephone Encounter - Mike Valles MD - 07/20/2023 11:21 AM EDT Signed Prescriptions: Disp Refills Loperamide HCl 2 MG Oral Capsule (Imodium) 60 Cap*0 Sig: TAKE ONE CAPSULE FOUR TIMES DAILY NEEDED Authorizing Provider: MIKE VALLES * Telephone Encounter - Ablino Stacy [facility] - 07/19/2023 5:19 PM EDT Pending Prescriptions: Disp Refills Loperamide HCl 2 MG Oral Capsule [Pharmacy*60 Cap*0 Sig: TAKE ONE CAPSULE FOUR TIMES DAILY NEEDED * Telephone Encounter - Albino Stacy [facility] - 07/19/2023 5:19 PM EDT [facility] is currently not authorized to approve refills for the pended medication(s) per refill protocol. Please approve if appropriate. Thank you, Paco Stacy, PharmD Clinical Pharmacist [facility] ([facility]) 07/19/23 5:19 PM [phone] documented in this encounter Plan of Treatment Upcoming Encounters Date Type Department Care Team (Late st Contact Info) Description 08/31/2023 12:00 PM EDT Office Visit [address] [phone] Dionne Flores PA-C [address] [place] [address] [place] [address] 10/12/2023 10:40 AM EDT Office Visit [address] [phone] Gilbert Calloway MD [address] [place] [address] [place] [address] Health Maintenance Due Date Last Done Comments DTaP,Tdap,and Td Vaccines (1 - Tdap) 11/15/1957 COVID-19 Vaccine (5 - 2022- season) 2022 04/19/2020, 04/04/2020, 03/22/2020, Additional history exists Albumin/Creatinine Ratio 07/28/2023 023, 06/09/2020, 03/13/2019, Additional history exists TSH 07/28/2023 07/27/2022, 05/21, 06/09/2020, Additional history exists CKD PHOS USE SMARTSET 94147 10/05/202309/19, 06/08/2021, 09/07/2020, Additional history exists Influenza Vaccine (FLU shot) (Season Ended) 2023 01/10/2022, 11/18/2020, 12/06/2019, Additional history exists CKD HGB USE SMARTSET 38300 03/06/202403/06, 03/06/2023, 10/04/2022, Additional history exists Pneumococcal [...]
--- OUTSIDE RECORDS SUMMARY | 2023-11-03 17:39 | External Medical Summary | Summary of Care ---
Author Name Unknown Organization [facility] Address [address] [place] [facility] [place] [address] Phone [phone] Care Team Providers Care Co Chairman Name Role Phone Gilbert Calloway MD Primary Care Provide r Reason for Visit * Reason Onset Date Comments Advice 07/20/2023 Pain medication Encounter Details Date Type Department Care Team (Late st Contact Info) Description 07/20/2023 Telephone Family Medicine [address] [place] [phone] Dionne Flores PA-C [address] [place] [address] [place] [address] Advice (Pain medication ) Allergies Active Allergy Reactions Criticality Noted [...] Capsule (Imodium)Indications :Chronic diarrhea TAKE ONE CAPSULE FOUR TIMES DAILY NEEDED 60 Capsule 07/20/2023 Active traZODone HCl 150 MG Oral Tablet (Desyrel)Indications :Persistent insomnia One at bedtime 30 Tablet 5 07/30/2023 Active traZODone HCl 150 MG Oral Tablet (Desyrel)Indications :Persistent insomnia One at bedtime 30 Tablet 5 01/17/2023 4 Discontinue d(Refill) documented as of this [...] atrial fibrillation 03/01/2021 Overview: new onset, [facility] on apixaban Last Assessment & 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[place] co ronary artery of [place] heart without angina pectoris Last Assessment & [...] 06/30/2014 06/26/2017 Overview: hgb 7.4 admitted [facility] CKD (chronic kidney disease) stage [...] Telephone Encounter - Con Coughlin MD - 07/30/2023 2:14 PM EDT That is fine * Telephone Encounter - Maylin Barfield RN - 07/30/2023 2:07 PM EDT Aware of this, and that she should take the meloxicam, she is still asking for her trazadone(or something for sleep) be sent, please advise No need to call back if it is sent * Telephone Encounter - Con Coughlin MD - 07/30/2023 1:54 PM EDT She has not received Tylenol #3 since 2014 and hydrocodone since 2021. I am not doing it. * Telephone Encounter - Maylin Barfield RN - 07/30/2023 1:06 PM EDT Pt is on Meloxicam, will you give her Tylenol #3, she has issues with controlled meds in past * Telephone Encounter - Mary Alice Sherman OSA - 07/20/2023 12:01 PM EDT Patient states she has pain in her back and hands, as well as occasional headaches. She was prescribed tylenol #[address] Flores and is out of this medication. She is also for sleep medication refill. She was previously on ambien and trazodone. She states either medication is fine. She states she is aware elderly should not be on ambien. She is asking for this or another pain medication to be called in for her. Patient is requesting a call back. documented in this encounter Plan of Treatment Upcoming Encounters Date Type Department Care Team (Late st Contact Info) Description 08/31/2023 12:00 PM EDT Office Visit [address] [place] [address] Dionne Flores PA-C [address] [place] [address] [place] [address] 10/12/2023 10:40 AM EDT Office Visit [address] [place] [phone] Gilbert Calloway MD [address] [place] [address] [place] [address] 04/04/2024 2:40 PM EST Office Visit Nephrology, Caroline Trosper [address] [facility] [place] [address] Tirso Shah MD [address] [facility] [place] [address] Health Maintenance Due Date Last Done Comments DTaP,Tdap,and Td Vaccines (1 - Tdap) 11/15/1957 Depression Monitoring 09/29/2020 09/30/2019 COVID-19 Vaccine (5 - 2022- season) 2022 04/19/2020, 04/04/2020, 03/22/2020, Additional history exists Albumin/Creatinine Ratio 07/28/2023 023, 06/09/2020, 03/13/2019, Additional history exists TSH 07/28/2023 07/27/2022, 05/21, 06/09/2020, Additional history exists CKD PHOS USE SMARTSET 62367 10/05/202309/19, 06/08/2021, 09/07/2020, Additional history exists Influenza Vaccine (FLU shot) (Season Ended) 2023 01/10/2022, 11/18/2020, 12/06/2019, Additional history exists CKD HGB USE SMARTSET 73907 03/06/202403/06, 03/06/2023, 10/04/2022, Additional history exists Pneumococcal [...] sleep documented in this encounter Care Teams Co Chairman Relationship Specialty Start Date End Date Gilbert Calloway MD [address] [place] [address] [place] [phone] PCP - General Family Medicine 07/30/23 documented as of this encounter
--- OUTSIDE RECORDS SUMMARY | 2023-11-03 17:39 | External Medical Summary | Summary of Care ---
Author Name Unknown Organization [facility] Address [address] [place] [address] Phone [phone] Care Team Providers Care Systems Tester Name Role Phone Gilbert Calloway MD Primary Care Provide r Reason for Visit * Reason Onset Date Comments Appointment 08/06/2023 Encounter Details Date Type Department Care Team (Late st Contact Info) Description 08/06/2023 Telephone [facility] [place], [place] [address] [place] [address] Services, Scheduling [address] [place] [address] Appointment Allergies Active Allergy Reactions Criticality Noted [...] her pain concerns. She is aware [facility] does not manage chronic pain meds. With her history of confusion, would recommend against use of narcotic medication. Mild aortic stenosis 07/27/2021 Last Assessment & Plan: Following with cardiology Aortocoronary bypass status 03/09/2021 Chronic atrial fibrillation 03/01/2021 Overview: new onset, [facility] on apixaban Last Assessment & 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[place] co ronary artery of [place] heart without angina pectoris Last Assessment [...] 06/30/2014 06/26/2017 Overview: hgb 7.4 admitted [facility] CKD (chronic kidney disease) stage [...] encounter Miscellaneous Notes * Telephone Encounter - Joelle Nevarez OSA - 08/06/2023 3:10 PM EDT Luisana request call on 08/07 to check meds. documented in this encounter Plan of Treatment Upcoming Encounters Date Type Department Care Team (Late st Contact Info) Description 08/08/2023 10:45 AM EDT Scheduled Telephone [facility] [place], [address] [place] [address] Coordinator, [facility] [address] [place] [address] 08/21/2023 2:00 PM EDT Scheduled Telephone [facility], [facility] [address] [facility] [place] [address] Flower Stroud RDN [address] [facility] [place] [address] 08/31/2023 12:00 PM EDT Office Visit Family [address] [phone] Dionne Flores PA-C [address] [place] [address] [place] [address] 09/04/2023 4:00 PM EDT Home Visit [facility], [facility] [address] [place] [address] Lana Lieberman RN [address] [place] [address] 10/12/2023 10:40 AM EDT Office Visit Family [address] [phone] Gilbert Calloway MD [address] [place] [address] [place] [address] 04/04/2024 2:40 PM EST Office Visit NephrologyCaroline [address] [place] [address] Tirso Shah MD [address] [place] [address] Health Maintenance Due Date Last Done Comments DTaP,Tdap,and Td Vaccines (1 - Tdap) 11/15/1957 Depression Monitoring 09/29/2020 09/30/2019 COVID-19 Vaccine (5 - 3-24 season) 2022 04/19/2020, 04/04/2020, 03/22/2020, Additional history exists Albumin/Creatinine Ratio 07/28/2023 023, 06/09/2020, 03/13/2019, Additional history exists TSH 07/28/2023 07/27/2022, 05/21, 06/09/2020, Additional history exists CKD PHOS USE SMARTSET 13114 10/05/202309/19, 06/08/2021, 09/07/2020, Additional history exists Influenza Vaccine (FLU shot) (Season Ended) 2023 01/10/2022, 11/18/2020, 12/06/2019, Additional history exists CKD HGB USE SMARTSET 32044 03/06/202403/06, 03/06/2023, 10/04/2022, Additional history exists Pneumococcal [...] filedocumented as of this encounter Care Teams Systems Tester Relationship Specialty Start Date End Date Gilbert Calloway MD [address] [place] [address] [place] [address] PCP - General Family Medicine 07/30/23 documented as of this encounter
--- OUTSIDE RECORDS SUMMARY | 2023-11-03 17:39 | External Medical Summary | Summary of Care ---
Author Name Unknown Organization [facility] Address [address] [place] [address] Phone [phone] Care Team Providers Care Supervisor Public Message Service Name Role Phone Unavailable Primary Care Provider Unavailabl e Reason for Visit * Reason Onset Date Comments case management 07/02/2023 Encounter Details Date Type Department Care Team (Late st Contact Info) Description 07/02/2023 Telephone Care Coordination and Integration [address] [place], [place] [phone] Opal Conway, RN [address] [place], [place] [phone] case management Allergies Active Allergy Reactions Criticality Noted Date Comments Ergotamine 03/01/2000 vomit Nitroglycerin 03/14/2007 vomitting documented as of this encounter (statuses as of 07/11/2023) Medications Medication Sig Dispensed Refills Start Date [...] FOR NAUSEA 30 Tablet 1 04/02/2023 Active Loperamide HCl 2 MG Oral Capsule (Imodium)Indications: Chronic diarrhea TAKE ONE CAPSULE BY MOUTH FOUR TIMES DAILY NEEDED 60 Capsule 1 03/30/2023 Active Losartan Potassium 25 MG Oral Tablet [...] THE MORNING 90 Tablet 1 06/26/2023 Active documented as of this encounter (statuses as of 07/11/2023) Active Problems Problem Noted Date Diagnosed Date [...] discuss her pain concerns. She is aware [facility] does not manage chronic pain meds. With her history of confusion, would recommend against use of narcotic medication. Mild aortic stenosis 07/27/2021 Last Assessment & Plan: Following with cardiology Aortocoronary bypass status 03/09/2021 Chronic atrial fibrillation 03/01/2021 Overview: new onset, [facility] on apixaban Last Assessment & 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[place] co ronary artery of [place] heart without angina pectoris Last Assessment & Plan: Stable no angina -continue rosuvastatin, metopropolol, Anxiety state Last Assessment & Plan: Stable on buspar, Primary hypertension Gastroesophageal reflux dise ase with esophagitis without hemorrhage Last Assessment & Plan: symptoms controlled on pantoprazole Scoliosis of lumbar spine Mixed incontinence urge and stress (male)(female ) documented as of this encounter (statuses as of 07/11/2023) Resolved Problems Problem Noted Date Diagnosed Date [...] 06/26/2017 Overview: hgb 7.4 admitted [facility] CKD (chronic kidney disease) stage [...] as of this encounter (statuses as of 07/11/2023) Immunizations Name Administration Dates Next Due COVID-19 [...] Telephone Encounter - Opal Conway RN - 07/02/2023 2:06 PM EDT Lana, I received a voicemail from patient requesting for a call back, at [phone]. I did try to call patient back, but it went to voicemail. I left her a message stating I would pass the message on to you, to give her a call. Thank you. documented in this encounter Plan of Treatment Upcoming Encounters Date Type Department Care Team (Late st Contact Info) Description 07/18/2023 4:00 PM EDT [facility], [address] [place] [address] Lana Lieberman, RN [address] [place] [address] 10/12/2023 10:40 AM EDT Office Visit Family Medicine [address] [place] [phone] Gilbert Calloway MD [address] [place] [address] [place] [address] Health Maintenance Due Date Last Done Comments DTaP,Tdap,and Td Vaccines (1 - Tdap) 11/15/1957 COVID-19 Vaccine ( - 2022- season) 2022 04/19/2020, 04/04/2020, 03/22/2020, Additional history exists Albumin/Creatinine Ratio 07/28/2023 023, 06/09/2020, 03/13/2019, Additional history exists TSH 07/28/2023 07/27/2022, 05/21, 06/09/2020, Additional history exists CKD PHOS USE SMARTSET 46045 10/05/202309/19, 06/08/2021, 09/07/2020, Additional history exists Influenza Vaccine (FLU shot) (Season Ended) 2023 01/10/2022, 11/18/2020, 12/06/2019, Additional history exists CKD HGB USE SMARTSET 91797 03/06/202403/06, 03/06/2023, 10/04/2022, Additional history exists Pneumococcal [...]
--- OUTSIDE RECORDS SUMMARY | 2023-11-03 17:39 | External Medical Summary | Summary of Care ---
Author Name Unknown Organization [facility] Address [address] [facility] [place] [address] Phone [phone] Care Team Providers Care Exhibit Carpenter Name Role Phone Gilbert Calloway MD Primary Care Provide r Reason for Visit * Reason Onset Date Comments [facility]: Maintenance 08/08/2023 Encounter Details Date Type Department Care Team (Late st Contact Info) Description 08/08/2023 10:45 AM EDT Scheduled Telephone [facility], [facility] [address] [facility] [place] [address] Coordinator, [facility] [address] [facility] [place] [address] Allergies Active Allergy Reactions Criticality Noted Date Comments Ergotamine 03/01/2000 vomit Nitroglycerin 03/14/2007 vomitting documented as of this encounter (statuses as of 08/08/2023) Medications Medication Sig Dispensed Refills Start Date [...] as of this encounter (statuses as of 08/08/2023) Active Problems Problem Noted Date Diagnosed Date [...] discuss her pain concerns. She is aware [facility] does not manage chronic pain meds. 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[place] co ronary artery of [place] heart without angina pectoris Last Assessment & Plan: Stable no angina -continue rosuvastatin, metopropolol, Anxiety state Last Assessment & Plan: Stable on buspar, Primary hypertension Gastroesophageal reflux dise ase with esophagitis without hemorrhage Last Assessment & Plan: symptoms controlled on pantoprazole Scoliosis of lumbar spine Mixed incontinence urge and stress (male)(female ) documented as of this encounter (statuses as of 08/08/2023) Resolved Problems Problem Noted Date Diagnosed Date [...] as of this encounter (statuses as of 08/08/2023) Immunizations Name Administration Dates Next Due COVID-19 [...] encounter Miscellaneous Notes * Telephone Encounter - Simi Bolivar RN - 08/08/2023 3:17 PM EDT Images from the original note were not included. [facility] Telephonic Nurse Follow-Up Call [facility] Subprogram: Focused Care Management (3-9 months) Follow Up Call Type: Routine follow up call / Status Check Acute issue requiring follow-up call: follow up on current DTP Objective: 08/06/2023 2:13 PM 07/04/2023 1:17 PM 07/03/2023 1:06 PM 06/21/2023 2:00 PM 06/21/2023 1:30 PM VITALS ACROSS ENCOUNTERS BP 124/82 132/84 160/80 98/56 92/50 Pulse 86 78 76 80 Remote Patient Monitoring: AMC Scale: scale Oxygen Needs: NO supplemental oxygen needs identified DME Needs: NO DME needs identified Medications: Current DTP: Other: Torsemide 20 mg daily x 3 Subjective: Condition Status: unable to contact Current Concerns: Called patients cell and home numbers , no answer on either , left messages to return call to [facility]. Another follow up phone call scheduled for tomorrow. Disposition: Follow up call scheduled for tomorrow with [facility] Airplane Technician Future Visits Scheduled: Future Appointments-next 60 days Date/Time Provider Specialty Dept Phone 08/21/2023 2:00 PM Flower Stroud RDN [facility] [phone] 08/31/2023 12:00 PM (Arrive by 11:45 AM) Dionne Flores PA-C Family Medicine [phone] 09/04/2023 4:00 PM Lana Lieberman RN [facility] [phone] 10/12/2023 10:40 AM (Arrive by 10:25 AM) Gilbert Calloway MD Family Medicine [phone] 04/04/2024 2:40 PM (Arrive by 2:25 PM) Tirso Shah MD Nephrology [phone] Simi Bolivar health and human performance professorManager Net [facility] documented in this encounter Plan of Treatment Upcoming Encounters Date Type Department Care Team (Late st Contact Info) Description 08/09/2023 10:45 AM EDT Scheduled Telephone [facility], [address] [place] [address] Coordinator, [facility] [address] [facility] [place] [address] 08/21/2023 2:00 PM EDT Scheduled Telephone [facility], [facility] [address] [facility] [place] [address] Flower Stroud RDN [address] [facility] [place] [address] 08/31/2023 12:00 PM EDT Office Visit Family Medicine [address] [phone] Dionne Flores PA-C [address] [place] [address] [place] [address] 09/04/2023 4:00 PM EDT Home Visit [facility], [facility] 132 [place] [address] Lana Lieberman RN 132 [place] [address] 10/12/2023 10:40 AM EDT Office Visit Family [address] [phone] Gilbert Calloway MD [address] [place] [address] [place] [address] 04/04/2024 2:40 PM EST Office Visit NephrologyCaroline [address] [place], [place] [address] Tirso Shah MD [address] [place] [address] Health Maintenance Due Date Last Done Comments DTaP,Tdap,and Td Vaccines (1 - Tdap) 11/15/1957 Depression Monitoring 09/29/2020 09/30/2019 COVID-19 Vaccine (5 - 2022-24 season) 2022 04/19/2020, 04/04/2020, 03/22/2020, Additional history exists Albumin/Creatinine Ratio 07/28/2023 023, 06/09/2020, 03/13/2019, Additional history exists TSH 07/28/2023 07/27/2022, 05/21, 06/09/2020, Additional history exists CKD PHOS USE SMARTSET 62236 10/05/202309/19, 06/08/2021, 09/07/2020, Additional history exists Influenza Vaccine (FLU shot) (Season Ended) 2023 01/10/2022, 11/18/2020, 12/06/2019, Additional history exists CKD HGB USE SMARTSET 15495 03/06/202403/06, 03/06/2023, 10/04/2022, Additional history exists Pneumococcal [...] filedocumented as of this encounter Care Teams Exhibit Carpenter Relationship Specialty Start Date End Date Gilbert Calloway MD [address] [place] [address] [place] [phone] PCP - General Family Medicine 07/30/23 documented as of this encounter
--- OUTSIDE RECORDS SUMMARY | 2023-11-03 17:39 | External Medical Summary | Summary of Care ---
Author Name Unknown Organization [facility] Address [address] [facility] [place] [address] Phone [phone] Care Team Providers Care Spray Stainer Name Role Phone Unavailable Primary Care Provider Unavailabl e Reason for Visit * Reason Onset Date Comments [facility]: Maintenance 07/20/2023 Encounter Details Date Type Department Care Team (Late st Contact Info) Description 07/20/2023 Telephone [facility], [facility] [address] [facility] [place] [address] [facility], Nurse [facility] [address] [facility] [place] [address] [facility]: Maintenance Allergies Active Allergy [...] for pain.. 30 Tablet 5 07/20/2023 Active documented as of this encounter [...] discuss her pain concerns. She is aware [facility] does not manage chronic pain 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[place] co ronary artery of [place] heart without angina pectoris Last Assessment & [...] 12:00 PM EDT Office Visit Family Medicine [address] [place] [phone] Dionne Flores PA-C [address] [place] [address] [place] [address] 10/12/2023 10:40 AM EDT Office Visit Family [address] [place] [address] Gilbert Calloway MD [address] [place] [address] [place] [phone] Health Maintenance Due Date Last Done Comments DTaP,Tdap,and Td Vaccines (1 - Tdap) 11/15/1957 COVID-19 Vaccine (5 - 2022-24 season) 2022 04/19/2020, 04/04/2020, 03/22/2020, Additional history exists Albumin/Creatinine Ratio 07/28/2023 023, 06/09/2020, 03/13/2019, Additional history exists TSH 07/28/2023 07/27/2022, 05/21, 06/09/2020, Additional history exists CKD PHOS USE SMARTSET 35619 10/05/202309/19, 06/08/2021, 09/07/2020, Additional history exists Influenza Vaccine (FLU shot) (Season Ended) 2023 01/10/2022, 11/18/2020, 12/06/2019, Additional history exists CKD HGB USE SMARTSET 41046 03/06/202403/06, 03/06/2023, 10/04/2022, Additional history exists Pneumococcal [...]
--- OUTSIDE RECORDS SUMMARY | 2023-11-03 17:39 | External Medical Summary | Summary of Care ---
Author Name Unknown Organization [facility] Address [address] [facility] [place] [address] Phone [phone] Care Team Providers Care Genetics Nurse Name Role Phone Gilbert Calloway MD Primary Care Provide r Reason for Visit * Reason Onset Date Comments [facility]: Maintenance 08/06/2023 Encounter Details Date Type Department Care Team (Late st Contact Info) Description 08/06/2023 10:45 AM EDT Scheduled Telephone [facility], [facility] [address] [facility] [place] [address] Coordinator, [facility] 132 [facility] [place] [address] Allergies Active Allergy Reactions Criticality Noted Date [...] morning. Take 1 capsule by mouth Mon, Sun, Sun. 45 Capsule 1 02/07/2023 Active busPIRone [...] discuss her pain concerns. She is aware [facility] does not manage chronic pain meds. With 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[place] co ronary artery of [place] heart without angina pectoris Last Assessment & [...] Telephone Encounter - Simi Bolivar RN - 08/06/2023 1:56 PM EDT Follow up phone call not needed , scheduled for HV with RNCM today. Simi Bolivar pineapple plantation managerCafeteria Cashier [facility] documented in this encounter Plan of Treatment Upcoming Encounters Date Type Department Care Team (Late st Contact Info) Description 08/06/2023 2:30 PM EDT Home Visit [facility], [facility] [address] [place] [address] Lana Lieberman, RN [address] [place] [address] 08/21/2023 2:00 PM EDT Scheduled Telephone [facility], [facility] [address] [facility] [place] [address] Flower Stroud, JERAMIEN [address] [facility] [place] [address] 08/31/2023 12:00 PM EDT Office Visit Family [address] [phone] Dionne Flores PA-C [address] [place] [address] [place] [address] 10/12/2023 10:40 AM EDT Office Visit [address] [phone] Gilbert Calloway MD [address] [place] [address] [place] [address] 04/04/2024 2:40 PM EST Office Visit Nephrology, Caroline Sparks [address] [facility] [place], [place] [address] Tirso Shah MD [address] [facility] [place] [address] Health Maintenance Due Date Last Done Comments DTaP,Tdap,and Td Vaccines (1 - Tdap) 11/15/1957 Depression Monitoring 09/29/2020 09/30/2019 COVID-19 Vaccine (5 - 2022-24 season) 2022 04/19/2020, 04/04/2020, 03/22/2020, Additional history exists Albumin/Creatinine Ratio 07/28/2023 023, 06/09/2020, 03/13/2019, Additional history exists TSH 07/28/2023 07/27/2022, 05/21, 06/09/2020, Additional history exists CKD PHOS USE SMARTSET 07491 10/05/202309/19, 06/08/2021, 09/07/2020, Additional history exists Influenza Vaccine (FLU shot) (Season Ended) 2023 01/10/2022, 11/18/2020, 12/06/2019, Additional history exists CKD HGB USE SMARTSET 15241 03/06/202403/06, 03/06/2023, 10/04/2022, Additional history exists Pneumococcal [...] filedocumented as of this encounter Care Teams Genetics Nurse Relationship Specialty Start Date End Date Gilbert Calloway MD [address] [place] [address] [place] [phone] PCP - General Family Medicine 07/30/23 documented as of this encounter
--- OUTSIDE RECORDS SUMMARY | 2023-11-03 17:39 | External Medical Summary | Summary of Care ---
Author Name Unknown Organization [facility] Address [address] [place] [address] Phone [phone] Care Team Providers Care Utilization Review Coordinator Name Role Phone Gilbert Calloway MD Primary Care Provide r Encounter Details Date Type Department Care Team (Late st Contact Info) Description 08/01/2023 Population Health External Data Unspecified Department Allergies Active Allergy Reactions Criticality Noted Date Comments Ergotamine 03/01/2000 vomit Nitroglycerin 03/14/2007 vomitting documented as of this encounter (statuses as of 08/01/2023) Medications Medication Sig Dispensed Refills Start Date [...] at bedtime 30 Tablet 5 07/30/2023 Active documented as of this encounter (statuses as of 08/01/2023) Active Problems Problem Noted Date Diagnosed Date [...] BMP Pro-BNP Her weights are stable on [facility]. She appears euvolemic today. Spondylosis of lumbar [...] Overview: new onset, [facility] on apixaban Last Assessment & Plan: Her [...] replacement status 09/09/2002 Atherosclerosis of [place] co ronary artery of [place] heart without angina pectoris Last Assessment & Plan: Stable no angina -continue rosuvastatin, metopropolol, Anxiety state Last Assessment & Plan: Stable on buspar, Primary hypertension Gastroesophageal reflux dise ase with esophagitis without hemorrhage Last Assessment & Plan: symptoms controlled on pantoprazole Scoliosis of lumbar spine Mixed incontinence urge and stress (male)(female ) documented as of this encounter (statuses as of 08/01/2023) Resolved Problems Problem Noted Date Diagnosed Date [...] hgb 7.4 admitted [facility] CKD (chronic kidney disease) stage 3, GFR [...] as of this encounter (statuses as of 08/01/2023) Immunizations Name Administration Dates Next Due COVID-19 [...] Description 08/06/2023 2:30 PM EDT [facility] [address] [facility] [place] [address] Lana Lieberman RN [address] [place] [address] 08/31/2023 12:00 PM EDT Office Visit Family Medicine [address] [place] [phone] Dionne Flores PA-C [address] [place] [address] [place] [address] 10/12/2023 10:40 AM EDT Office Visit Family Medicine [address] [place] [phone] Gilbert Calloway MD [address] [place] [address] [place] [address] 04/04/2024 2:40 PM EST Office Visit NephrologyCaroline [address] [place] [address] Tirso Shah MD 200 [facility] [place] [address] Health Maintenance Due Date Last Done Comments DTaP,Tdap,and Td Vaccines (1 - Tdap) 11/15/1957 Depression Monitoring 09/29/2020 09/30/2019 COVID-19 Vaccine (5 - season) 2022 04/19/2020, 04/04/2020, 03/22/2020, Additional history exists Albumin/Creatinine Ratio 07/28/2023 023, 06/09/2020, 03/13/2019, Additional history exists TSH 07/28/2023 07/27/2022, 05/21, 06/09/2020, Additional history exists CKD PHOS USE SMARTSET 27273 10/05/202309/19, 06/08/2021, 09/07/2020, Additional history exists Influenza Vaccine (FLU shot) (Season Ended) 2023 01/10/2022, 11/18/2020, 12/06/2019, Additional history exists CKD HGB USE SMARTSET 83075 03/06/202403/06, 03/06/2023, 10/04/2022, Additional history exists Pneumococcal [...] filedocumented as of this encounter Care Teams Utilization Review Coordinator Relationship Specialty Start Date End Date Gilbert Calloway MD [address] [place] [address] [place] [address] PCP - General Family Medicine 07/30/23 documented as of this encounter
--- OUTSIDE RECORDS SUMMARY | 2023-11-03 17:39 | External Medical Summary | Summary of Care ---
Author Name Unknown Organization [facility] Address [address] [place] [address] Phone [phone] Care Team Providers Care Sod Farmer Name Role Phone Unavailable Primary Care Provider Unavailabl e Reason for Visit * Reason Comments eRx-Medication Refill Encounter Details Date Type Department Care Team (Late st Contact Info) Description 07/24/2023 Refill Family Medicine [address] [place] [phone] Con Garcia MD [address] [place] [address] [place] [address] DDD (degenerative disc disease), lumbar Allergies Active Allergy Reactions Criticality Noted Date Comments Ergotamine 03/01/2000 vomit Nitroglycerin 03/14/2007 vomitting documented as of this encounter (statuses as of 07/26/2023) Medications Medication Sig Dispensed Refills Start Date [...] times daily 90 Capsule 5 07/26/2023 Active Gabapentin 300 MG Oral Capsule (Neurontin)Indicati ons:DDD (degenerative disc disease), lumbar Take 1 Capsule by mouth in the morning and 1 Capsule at noon and 1 Capsule before bedtime. 90 Capsule 5 10/10/2022 07/26/19 24 Discontinued documented as of this encounter (statuses as of 07/26/2023) Active Problems Problem Noted Date Diagnosed Date [...] BMP Pro-BNP Her weights are stable on [facility]. She appears euvolemic today. Spondylosis [...] as of this encounter (statuses as of 07/26/2023) Resolved Problems Problem Noted Date Diagnosed Date [...] as of this encounter (statuses as of 07/26/2023) Immunizations Name Administration Dates Next Due COVID-19 [...] Telephone Encounter - Con Garcia MD - 07/26/2023 8:38 AM EDTSigned Prescriptions: Disp Refills Gabapentin 300 MG Oral Capsule (Neurontin) 90 Cap*5 Sig: take 1 capsule three times daily Authorizing Provider: CON GARCIA * Telephone Encounter - Vidhya Hodges [facility] - 07/25/2023 3:39 PM EDTPending Prescriptions: Disp Refills Gabapentin 300 MG Oral Capsule [Pharmacy M*90 Cap*5 Sig: take 1 capsule three times daily * Telephone Encounter - Vidhya Hodges [facility] - 07/25/2023 3:37 PM EDT Patient has no PCP under whom to authorize refills. She has appointment with you scheduled for 08/31/2023 Please approve if appropriate. Thank you, Vidhya Hodges, PharmD Clinical Pharmacist [facility] ([facility]) 07/25/23 3:38 PM [phone] [facility] is currently not authorized to approve refills for the pended medication(s) per refill protocol. Please approve if appropriate. Did you pend patient's preferred pharmacy and medication before forwarding?yes Pharmacy: [email or web address], [address] [place] Pending Prescriptions: Disp Refills Gabapentin 300 MG Oral Capsule [Pharmacy M*90 Cap*5 Sig: take 1 capsule three times daily Last Visit: 05/29/2023 (in office), 01/10/2023 (telemedicine) Next Visit: 08/31/2023 If no future appointments scheduled, and last appointment is greater than a year ago, please schedule patient for a follow-up appointment Last date the medication was ordered: 8/22/23 Is this request for a controlled substance?No [...] 12:00 AM HGBA1C 5.2 11/04/2013 12:09 PM Thank you, Vidhya Hodges, PharmD Clinical Pharmacist [facility] 07/25/23 3:37 PM [phone] documented in this encounter Plan of Treatment Upcoming Encounters Date Type Department Care Team (Late st Contact Info) Description 08/31/2023 12:00 PM EDT Office Visit [address] [place] [phone] Dionne Flores PA-C [address] [place] [address] [place] [address] 10/12/2023 10:40 AM EDT Office Visit [address] [place] [phone] Gilbert Calloway MD [address] [place] [address] [place] [address] Health Maintenance Due Date Last Done Comments DTaP,Tdap,and Td Vaccines (1 - Tdap) 11/15/1957 COVID-19 Vaccine ( - season) 2022 04/19/2020, 04/04/2020, 03/22/2020, Additional history exists Albumin/Creatinine Ratio 07/28/2023 023, 06/09/2020, 03/13/2019, Additional history exists TSH 07/28/2023 07/27/2022, 05/21, 06/09/2020, Additional history exists CKD PHOS USE SMARTSET 93741 10/05/202309/19, 06/08/2021, 09/07/2020, Additional history exists Influenza Vaccine (FLU shot) (Season Ended) 2023 01/10/2022, 11/18/2020, 12/06/2019, Additional history exists CKD HGB USE SMARTSET 24368 03/06/202403/06, 03/06/2023, 10/04/2022, Additional history exists Pneumococcal [...]
--- OUTSIDE RECORDS SUMMARY | 2023-11-03 17:40 | External Medical Summary | Summary of Care ---
Author Name Unknown Organization [facility] Address [address] [facility] [place] [address] Phone [phone] Care Team Providers Care Equipment Processor Name Role Phone Gilbert Calloway MD Primary Care Provide r Reason for Visit * Reason Onset Date Comments [facility]: Maintenance 06/18/2023 Encounter Details Date Type Department Care Team (Late st Contact Info) Description 06/18/2023 10:15 AM EDT Scheduled Telephone [facility], [facility] [address] [facility] [place] [address] Coordinator, [facility] [address] [facility] [place] [address] Allergies Active Allergy Reactions Criticality Noted Date Comments Ergotamine 03/01/2000 vomit Nitroglycerin 03/14/2007 vomitting documented as of this encounter (statuses as of 06/18/2023) Medications Medication Sig Dispensed Refills Start Date End Date Status Eliquis 5 MG Oral Tablet Take 1 Tablet by mouth in the morning and 1 Tablet before bedtime. 0 08/25/2022 Active Gabapentin 300 MG Oral Capsule [...] 11/20/2022 Active Benzonatate 100 MG Oral Capsule (Tessalniurka Perlallen)Indications:Vi ral URI with cough Take 1 [...] 1 Tablet before bedtime. 100 Tablet 0 04/09/2023 Active Pantoprazole Sodium 40 MG Oral Tablet Delayed Release (Protonix)Indications :Gastric ulcer without hemorrhage or perforation, unspecified chronicity,Gastroesop hageal reflux disease with esophagitis without hemorrhage TAKE ONE TABLET TWICE DAILY 180 Tablet 1 05/03/2023 Active Rosuvastatin Calcium 10 MG Oral Tablet (Crestor)Indications: Dyslipidemia, goal LDL below 100 TAKE ONE TABLET BY MOUTH AT BEDTIME 90 Tablet 1 05/03/2023 Active predniSONE 10 MG Oral Tablet (Deltasone)Indication s:Chronic bilateral low back pain without sciatica Take 5 tabs for 2 days, 4 tabs for 2 days, 3 tabs for 2 days, 2 tabs for 2 days 1 tab for 2 days 30 Tablet 0 05/29/2023 Active Torsemide 20 MG Oral Tablet (Demadex) Take 1 Tablet by mouth daily as needed (swelling, wt gain>2 lbs). 30 Tablet 0 06/17/2023 Active documented as of this encounter (statuses as of 06/18/2023) Active Problems Problem Noted Date Diagnosed Date [...] concerns. She is aware [facility] does not manage chronic pain meds. With 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[place] co ronary artery of [place] heart without angina pectoris Last Assessment & Plan: Stable no angina -continue rosuvastatin, metopropolol, Anxiety state Last Assessment & Plan: Stable on buspar, Primary hypertension Gastroesophageal reflux dise ase with esophagitis without hemorrhage Last Assessment & Plan: symptoms controlled on pantoprazole Scoliosis of lumbar spine Mixed incontinence urge and stress (male)(female ) documented as of this encounter (statuses as of 06/18/2023) Resolved Problems Problem Noted Date Diagnosed Date [...] as of this encounter (statuses as of 06/18/2023) Immunizations Name Administration Dates Next Due COVID-19 [...] Telephone Encounter - Simi Bolivar RN - 06/18/2023 11:20 AM EDT Images from the original note were not included. [facility] Telephonic Nurse Follow-Up Call [facility] Subprogram: Short-Term Management (less than 3 months) Follow Up Call Type: Routine follow up call / Status Check Acute issue requiring follow-up call: Other: follow up on edema , did patient pickler helper new prescription for torsemide? Objective: 06/15/2023 2:05 PM 05/29/2023 3:07 PM 05/16/2023 11:54 AM 04/11/2023 11:01 AM 04/09/2023 4:00 PM VITALS ACROSS ENCOUNTERS BP 115/50 100/58 142/72 128/82 118/72 Pulse 70 78 64 60 88 Weight 71.3 kg 72.1 kg 72.1 kg BMI 30.06 BMI 29.69 kg/m2 30.04 kg/m2 30.04 kg/m2 Remote Patient Monitoring: AMC Scale: no reading today Oxygen Needs: NO supplemental oxygen needs identified DME Needs: NO DME needs identified Medications: Torsemide 20 mg x 3 days Subjective: Condition Status: unable to contact Current Concerns: Called patient ,no answer, left message to return call to [facility]. Another follow up call scheduled for tomorrow. Disposition: Follow up call scheduled for tomorrow with [facility] Photographic Process Screen Maker Future Visits Scheduled: Future Appointments-next 60 days Date/Time Provider Specialty Dept Phone 06/20/2023 4:00 PM Lana Lieberman RN [facility] [phone] 10/12/2023 10:40 AM (Arrive by 10:25 AM) Gilbert Calloway MD Family Medicine [phone] Simi Bolivar RN Ship Worker [facility] documented in this encounter Plan of Treatment Upcoming Encounters Date Type Department Care Team (Late st Contact Info) Description 06/19/2023 12:00 PM EDT Scheduled Telephone [facility] [place], [facility] [address] [place] [address] Coordinator, [facility] [address] [place] [address] 06/20/2023 4:00 PM EDT [facility] [address] [place] [place] [address] Lana Lieberman RN [address] [facility] [place] [address] 10/12/2023 10:40 AM EDT Office Visit Family Medicine [address] [place] [phone] Gilbert Calloway MD [address] [place] [address] [place] [address] Health Maintenance Due Date Last Done Comments DTaP,Tdap,and Td Vaccines (1 - Tdap) 11/15/1957 COVID-19 Vaccine (5 - 2022- season) 2022 04/19/2020, 04/04/2020, 03/22/2020, Additional history exists Albumin/Creatinine Ratio 07/28/2023 023, 06/09/2020, 03/13/2019, Additional history exists TSH 07/28/2023 07/27/2022, 05/21, 06/09/2020, Additional history exists CKD PHOS USE SMARTSET 84165 10/05/202309/19, 06/08/2021, 09/07/2020, Additional history exists Influenza Vaccine (FLU shot) (Season Ended) 2023 01/10/2022, 11/18/2020, 12/06/2019, Additional history exists CKD HGB USE SMARTSET 40488 03/06/202403/06, 03/06/2023, 10/04/2022, Additional history exists Pneumococcal [...] filedocumented as of this encounter Care Teams Equipment Processor Relationship Specialty Start Date End Date Gilbert Calloway MD [address] [place] [address] [place] [address] PCP - General Family Medicine 04/11/23 documented as of this encounter
--- OUTSIDE RECORDS SUMMARY | 2023-11-03 17:40 | External Medical Summary | Summary of Care ---
Author Name Unknown Organization [facility] Address [address] [place] [address] Phone [phone] Care Team Providers Care Demand Inspector Name Role Phone Gilbert Calloawy MD Primary Care Provide r Encounter Details Date Type Department Care Team (Late st Contact Info) Description 06/21/2023 3:00 PM EDT Home Visit Care Coordination and Integration [address] [place] [address] Ashley Castaneda [facility] [address] [place] [address] Allergies Active Allergy Reactions Criticality Noted Date Comments Ergotamine 03/01/2000 vomit Nitroglycerin 03/14/2007 vomitting documented as of this encounter (statuses as of 06/22/2023) Medications Medication Sig Dispensed Refills Start Date [...] as of this encounter (statuses as of 06/22/2023) Active Problems Problem Noted Date Diagnosed Date [...] discuss her pain concerns. She is aware [facility] does not manage chronic pain meds. With her history of confusion, would recommend against use of narcotic medication. Mild aortic stenosis 07/27/2021 Last Assessment & Plan: Following with cardiology Aortocoronary bypass status 03/09/2021 Chronic atrial fibrillation 03/01/2021 Overview: new onset, [facility] on apixaban Last Assessment & Plan: Her 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[place] co ronary artery of [place] heart without angina pectoris Last Assessment & Plan: Stable no angina -continue rosuvastatin, metopropolol, Anxiety state Last Assessment & Plan: Stable on buspar, Primary hypertension Gastroesophageal reflux dise ase with esophagitis without hemorrhage Last Assessment & Plan: symptoms controlled on pantoprazole Scoliosis of lumbar spine Mixed incontinence urge and stress (male)(female ) documented as of this encounter (statuses as of 06/22/2023) Resolved Problems Problem Noted Date Diagnosed Date [...] hgb 7.4 admitted [facility] CKD (chronic kidney disease) stage 3, GFR [...] as of this encounter (statuses as of 06/22/2023) Immunizations Name Administration Dates Next Due COVID-19 [...] Sign Reading Time Taken Comments Blood Pressure 98/56 06/21/2023 2:00 PM EDT Pulse 80 06/21/2023 1:30 PM EDT Temperature 36.6 C (97.9 F) 06/21/2023 1:30 PM ED T Respiratory Rate 18 06/21/2023 1:30 PM EDT Oxygen Saturation 98% 06/21/2023 1:30 PM EDT Inhaled Oxygen Concentration - - Weight - - Height - - Body Mass Index - - documented in this encounter Progress Notes * Ashley Castaneda, [facility] Scheduling Coordinator - 06/21/2023 12:54 PM EDT Telemedicine visit: No [facility] Scheduling Coordinator (KARELY) documentation: CHW home visit to ensure med compliance. Patient is current on pills starting 06/19, seems to be taking as per order. Patient has packs from the previous 2 weeks which have a few days with unused meds and mid day gabapentin dose remaining forthe full week. Suggested to patient that she may want to dispose of these, so as not to mix them with the current week. Patient declined. Patient was agreeable for CHW to label the packs as "extra - do not take". Obtained VS. Initial BP 92/50. Discussed intake for the day - patient states she has only had 2 cups of coffee. Provided patient a glass of water and assisted in making toast with peanut butter and honey. Rechecked 30 miin later, and BP had improved. Advised patient that she needs to drink at leastequal amount of water to coffee - preferably more water through the day than anything else. If having coffee in the AM, be sure to eat with it, as well. Patient verbalized understanding and appreciation. BP 98/56 (BP Site: Right Arm, BP Position: Sitting) | Pulse 80 | Temp 36.6 C (97.9 F) | Resp 18| SpO2 98% Ashley Castaneda Community Health Worker Electronically signed by Ashley Castaneda Community [facility] Surgery Scheduling Coordinator at 06/22/2023 8:19 AM EDT documented in this encounter Plan of Treatment Upcoming Encounters Date Type Department Care Team (Late st Contact Info) Description 07/04/2023 2:00 PM EDT Home Visit [facility] at [facility] [address] [place] [address] Lana Lieberman, RN [address] [place] [address] 10/12/2023 10:40 AM EDT Office Visit Family Medicine [address] [place] [phone] Gilbert Calloway MD [address] [place] [address] [place] [address] Health Maintenance Due Date Last Done Comments DTaP,Tdap,and Td Vaccines (1 - Tdap) 11/15/1957 COVID-19 Vaccine (5 - season) 2022 04/19/2020, 04/04/2020, 03/22/2020, Additional history exists Albumin/Creatinine Ratio 07/28/2023 023, 06/09/2020, 03/13/2019, Additional history exists TSH 07/28/2023 07/27/2022, 05/21, 06/09/2020, Additional history exists CKD PHOS USE SMARTSET 44259 10/05/202309/19, 06/08/2021, 09/07/2020, Additional history exists Influenza Vaccine (FLU shot) (Season Ended) 2023 01/10/2022, 11/18/2020, 12/06/2019, Additional history exists CKD HGB USE SMARTSET 83375 03/06/202403/06, 03/06/2023, 10/04/2022, Additional history exists Pneumococcal [...] filedocumented as of this encounter Care Teams Demand Inspector Relationship Specialty Start Date End Date Gilbert Calloway MD [address] [place] [address] [place] [address] PCP - General Family Medicine 04/11/23 documented as of this encounter
--- OUTSIDE RECORDS SUMMARY | 2023-11-03 17:40 | External Medical Summary | Summary of Care ---
Author Name Unknown Organization [facility] Address [address] [place] [address] Phone [phone] Care Team Providers Care Engineering Officer Name Role Phone Unavailable Primary Care Provider Unavailabl e Reason for Visit * Reason Onset Date Comments Med Request 07/03/2023 Encounter Details Date Type Department Care Team (Late st Contact Info) Description 07/03/2023 Telephone Family Medicine [address] [place] [phone] Gilbert Calloway MD [address] [place] [address] [place] [address] Med Request (/) Allergies Active Allergy Reactions Criticality Noted Date Comments Ergotamine 03/01/2000 vomit Nitroglycerin 03/14/2007 vomitting documented as of this encounter (statuses as of 07/03/2023) Medications Medication Sig Dispensed Refills Start Date [...] gain>2 lbs). 30 Tablet 0 06/17/2023 Active Metoprolol Succinate ER 50 MG Oral Tablet Extended Release 24 Hour (toPROL XL) TAKE ONE TABLET BY MOUTH IN THE MORNING 90 Tablet 1 06/26/2023 Active documented as of this encounter (statuses as of 07/03/2023) Active Problems Problem Noted Date Diagnosed Date [...] Chronic atrial fibrillation 03/01/2021 Overview: new onset, [facility] on apixaban Last Assessment & 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[place] co ronary artery of [place] heart without angina pectoris Last Assessment & Plan: Stable no angina -continue rosuvastatin, metopropolol, Anxiety state Last Assessment & Plan: Stable on buspar, Primary hypertension Gastroesophageal reflux dise ase with esophagitis without hemorrhage Last Assessment & Plan: symptoms controlled on pantoprazole Scoliosis of lumbar spine Mixed incontinence urge and stress (male)(female ) documented as of this encounter (statuses as of 07/03/2023) Resolved Problems Problem Noted Date Diagnosed Date [...] ulcer 06/30/2014 06/26/2017 Overview: hgb 7.4 admitted [facility] CKD (chronic kidney disease) stage [...] as of this encounter (statuses as of 07/03/2023) Immunizations Name Administration Dates Next Due COVID-19 [...] encounter Miscellaneous Notes * Telephone Encounter - Lana Lieberman RN - 07/03/2023 4:23 PM EDT Last visit- medication review patient was not taking- agree with provider. Will assess tomorrow during visit. * Telephone Encounter - Maylin Barfield RN - 07/03/2023 3:45 PM EDT message left for pt to call us back. Sees ARCELIA tomorrow * Telephone Encounter - Daren Varela CRNP - 07/03/2023 3:35 PM EDT It was not on her med list when I saw her. I do not feel comfortable prescribing this as she is already on Gabapentin TID which is sedating and takes trazadone at night for insomnia. Can you clarify why she was taking this? * Telephone Encounter - Maylin Barfield RN - 07/03/2023 2:22 PM EDT Do you want her to have this? * Telephone Encounter - Ora Robledo CPhT - 07/03/2023 11:02 AM EDT Patient requesting refills for Hydroxyzine 10 mg. Upon chart review, medication is listed as discontinued, with discontinuation reason as "med list cleanup". Please advise if you wish to continue this therapy for the patient. Thank you, Ora Robledo CPhT Chief Librarian Work With [facility]formerly telepharmacy) 07/03/2023,11:02 AM documented in this encounter Plan of Treatment Upcoming Encounters Date Type Department Care Team (Late st Contact Info) Description 07/04/2023 2:00 PM EDT Home Visit [facility] [address] [place] [address] Lana Lieberman RN [address] [place] [address] 10/12/2023 10:40 AM EDT Office Visit Family Medicine [address] [place] [phone] Gilbert Calloway MD [address] [place] [address] [place] [address] Health Maintenance Due Date Last Done Comments DTaP,Tdap,and Td Vaccines (1 - Tdap) 11/15/1957 COVID-19 Vaccine (5 - 2022- season) 2022 04/19/2020, 04/04/2020, 03/22/2020, Additional history exists Albumin/Creatinine Ratio 07/28/2023 023, 06/09/2020, 03/13/2019, Additional history exists TSH 07/28/2023 07/27/2022, 05/21, 06/09/2020, Additional history exists CKD PHOS USE SMARTSET 72918 10/05/202309/19, 06/08/2021, 09/07/2020, Additional history exists Influenza Vaccine (FLU shot) (Season Ended) 2023 01/10/2022, 11/18/2020, 12/06/2019, Additional history exists CKD HGB USE SMARTSET 26330 03/06/202403/06, 03/06/2023, 10/04/2022, Additional history exists Pneumococcal [...]
--- OUTSIDE RECORDS SUMMARY | 2023-11-03 17:40 | External Medical Summary | Summary of Care ---
Author Name Unknown Organization [facility] Address [address] [place] [address] Phone [phone] Care Team Providers Care Grant Manager Name Role Phone Gilbert Calloway MD Primary Care Provide r Reason for Visit * Reason Onset Date Comments Medication Refill 06/17/2023 Encounter Details Date Type Department Care Team (Late st Contact Info) Description 06/17/2023 [facility] [place] [address] [place] [address] Hellen Sherman, KHARI [address] [facility] [address] Allergies Active Allergy Reactions Criticality Noted Date Comments Ergotamine 03/01/2000 vomit Nitroglycerin 03/14/2007 vomitting documented as of this encounter (statuses as of 06/17/2023) Medications Medication Sig Dispensed Refills Start Date End Date Status Eliquis 5 MG Oral Tablet Take 1 Tablet by mouth in the morning and 1 Tablet before bedtime. 0 08/25/2022 Active Gabapentin 300 MG Oral Capsule (Neurontin)Indicatio [...] Active Benzonatate 100 MG Oral Capsule (Tessalniurka Perl[place]en)Indications:V iral URI with cough Take 1 Capsule [...] 05/03/2023 Active predniSONE 10 MG Oral Tablet (Deltasone)Indicatio ns:Chronic bilateral low back pain without sciatica Take 5 tabs for 2 days, 4 tabs for 2 days, 3 tabs for 2 days, 2 tabs for 2 days 1 tab for 2 days 30 Tablet 0 05/29/2023 Active Torsemide 20 MG Oral Tablet (Demadex) Take 1 Tablet by mouth daily as needed (swelling, wt gain>2 lbs). 30 Tablet 0 06/17/2023 Active Torsemide 20 MG Oral Tablet (Demadex) Take 1 Tablet by mouth daily as needed (swelling, wt gain>2 lbs). 0 4 Discontinue d(Refill) documented as of this encounter (statuses as of 06/17/2023) Active Problems Problem Noted Date Diagnosed Date [...] BMP Pro-BNP Her weights are stable on [facility]. She appears euvolemic today. Spondylosis of lumbar [...] discuss her pain concerns. She is aware [facility] does not manage chronic pain meds. With her history of confusion, would recommend against use of narcotic medication. 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[place] co ronary artery of [place] heart without angina pectoris Last Assessment & Plan: Stable no angina -continue rosuvastatin, metopropolol, Anxiety state Last Assessment & Plan: Stable on buspar, Primary hypertension Gastroesophageal reflux dise ase with esophagitis without hemorrhage Last Assessment & Plan: symptoms controlled on pantoprazole Scoliosis of lumbar spine Mixed incontinence urge and stress (male)(female ) documented as of this encounter (statuses as of 06/17/2023) Resolved Problems Problem Noted Date Diagnosed Date [...] ulcer 06/30/2014 06/26/2017 Overview: hgb 7.4 admitted [facility] CKD (chronic kidney disease) stage 3, GFR [...] as of this encounter (statuses as of 06/17/2023) Immunizations Name Administration Dates Next Due COVID-19 [...] encounter Miscellaneous Notes * Telephone Encounter - Santiago Boateng DO - 06/17/2023 1:14 PM EDTSigned Prescriptions: Disp Refills Torsemide 20 MG Oral Tablet (Demadex) 30 Tab*0 Sig: Take 1 Tablet by mouth daily as needed (swelling, wt gain>2 lbs).Authorizing Provider: SANTIAGO BOATENG----- documented in this encounter Plan of Treatment Upcoming Encounters Date Type Department Care Team (Late st Contact Info) Description 06/18/2023 10:15 AM EDT Scheduled Telephone [facility], [facility] [address] [place] [address] Coordinator, [facility] [address] [place] [address] 06/20/2023 4:00 PM EDT [facility] Visit [facility] [address] [place] [address] Lana Lieberman, KHARI [address] [place] [address] 10/12/2023 10:40 AM EDT Office Visit Family [address] [place] [phone] Gilbert Calloway MD [address] [place] [address] [place] [address] Health Maintenance Due Date Last Done Comments DTaP,Tdap,and Td Vaccines (1 - Tdap) 11/15/1957 COVID-19 Vaccine (5 - 2022-24 season) 2022 04/19/2020, 04/04/2020, 03/22/2020, Additional history exists Albumin/Creatinine Ratio 07/28/2023 023, 06/09/2020, 03/13/2019, Additional history exists TSH 07/28/2023 07/27/2022, 05/21, 06/09/2020, Additional history exists CKD PHOS USE SMARTSET 75968 10/05/202309/19, 06/08/2021, 09/07/2020, Additional history exists Influenza Vaccine (FLU shot) (Season Ended) 2023 01/10/2022, 11/18/2020, 12/06/2019, Additional history exists CKD HGB USE SMARTSET 43386 03/06/202403/06, 03/06/2023, 10/04/2022, Additional history exists Pneumococcal [...] filedocumented as of this encounter Care Teams Grant Manager Relationship Specialty Start Date End Date Gilbert Calloway MD [address] [place] [address] [place] [phone] PCP - General Family Medicine 04/11/23 documented as of this encounter
--- OUTSIDE RECORDS SUMMARY | 2023-11-03 17:40 | External Medical Summary | Summary of Care ---
Author Name Unknown Organization [facility] Address [address] [place] [address] Phone [phone] Care Team Providers Care Bench Boring Machine Operator Name Role Phone Gilbert Calloway MD Primary Care Provide r Reason for Visit * Reason Comments [facility]: Maintenance Encounter Details Date Type Department Care Team (Late st Contact Info) Description 06/20/2023 4:00 PM EDT [facility] Visit [facility], [facility] [place] [address] Lana Lieberman, RN [address] [place] [address] Allergies Active Allergy Reactions Criticality Noted Date Comments Ergotamine 03/01/2000 vomit Nitroglycerin 03/14/2007 vomitting documented as of this encounter (statuses as of 06/23/2023) Medications Medication Sig Dispensed Refills Start Date [...] 11/20/2022 Active Benzonatate 100 MG Oral Capsule (Tescarlie Perlallen)Indications:Vi ral URI with cough Take 1 [...] as of this encounter (statuses as of 06/23/2023) Active Problems Problem Noted Date Diagnosed Date [...] BMP Pro-BNP Her [place] [facility] She appears euvolemic today. [...] as of this encounter (statuses as of 06/23/2023) Resolved Problems Problem Noted Date Diagnosed Date [...] as of this encounter (statuses as of 06/23/2023) Immunizations Name Administration Dates Next Due COVID-19 [...] Sign Reading Time Taken Comments Blood Pressure 162/82 06/20/2023 3:05 PM EDT Pulse 80 06/20/2023 3:05 PM EDT Temperature 36.9 C (98.4 F) 06/20/2023 3:05 PM ED T Respiratory Rate 18 06/20/2023 3:05 PM EDT Oxygen Saturation 98% 06/20/2023 3:05 PM EDT Inhaled Oxygen Concentration - - Weight - - Height - - Body Mass Index - - documented in this encounter Progress Notes * Lana Lieberman RN - 06/20/2023 2:29 PM EDT Images from the original note were not included. [facility] [employer] Chief Creative Officer Visit Date: 06/20/2023 Time: 2:29 PM Name: Zoya Howard : 1938 Current Concerns: Patient seen for follow up visit. Upon arrival- patient tearful- reporting she is nauseous and she doesn't know what to do. Has not vomited. Took Zofran this am. Noted to have missed afternoon/night pills x 4 days which includes gabapentin. AM meds given duringvisit. Discussed importance of taking medications as prescribed Provided emotional support- does not like living at [facility]- does not really have anyone. VS wnl Lungs clear bilaterally Did not weigh this am- see weight trend below. Does report sob slightly above baseline- was to take DTP- Torsemide dose given today. Unsure of compliance. No edema to BLE. Voiding without difficulty Bowels wnl- per report Appetite good Taking fluids Problems/Symptoms: Review of Systems Constitutional: Negative. HENT: Negative. Respiratory: Positive for shortness of breath. Gastrointestinal: Negative. Genitourinary: Negative. Musculoskeletal: Positive for gait problem. Skin: Negative. Hematological: Negative. Psychiatric/Behavioral: Negative. Physical Exam: BP 162/82 (BP Site: Left Arm, BP Position: Sitting, BP Cuff Size: Regular) | Pulse 80 | Temp 36.9 C (98.4 F) (Tympanic) | Resp 18 | SpO2 98% Pain 0 Physical Exam Constitutional: Appearance: Normal appearance. Cardiovascular: Rate and Rhythm: Normal rate and regular rhythm. Pulses: Normal pulses. Heart sounds: Normal heart [...] since last visit Treatment/Plan: Low na diet Amc scale daily Take medications as prescribed Keep all upcoming MD appointments Randy quiroz nausea Fluids encouraged CHW visit tomorrow to ensure patient is taking meds. KHARI ARREAGA follow up in 2 weeks. Home Interventions [...] patient in 2 weeks. Lana Schuler RN 06/20/2023 2:29 PM documented in this encounter Plan of Treatment Upcoming Encounters Date Type Department Care Team (Late st Contact Info) Description 07/04/2023 2:00 PM EDT Home Visit [facility] [address] [place] [address] Lana Lieberman RN 132 [facility] [place] [address] 10/12/2023 10:40 AM EDT Office Visit Family Medicine [address] [place] [phone] Gilbert Calloway MD [address] [place] [address] [place] [address] Health Maintenance Due Date Last Done Comments DTaP,Tdap,and Td Vaccines (1 - Tdap) 11/15/1957 COVID-19 Vaccine ( - 2022- season) 2022 04/19/2020, 04/04/2020, 03/22/2020, Additional history exists Albumin/Creatinine Ratio 07/28/2023 023, 06/09/2020, 03/13/2019, Additional history exists TSH 07/28/2023 07/27/2022, 05/21, 06/09/2020, Additional history exists CKD PHOS USE SMARTSET 91807 10/05/202309/19, 06/08/2021, 09/07/2020, Additional history exists Influenza Vaccine (FLU shot) (Season Ended) 2023 01/10/2022, 11/18/2020, 12/06/2019, Additional history exists CKD HGB USE SMARTSET 08698 03/06/202403/06, 03/06/2023, 10/04/2022, Additional history exists Pneumococcal [...] as of this encounter Care Teams Bench Boring Machine Operator Relationship Specialty Start Date End Date Gilbert Calloway MD [address] [place] [address] [place] [address] PCP - General Family Medicine 04/11/23 documented as of this encounter
--- OUTSIDE RECORDS SUMMARY | 2023-11-03 17:40 | External Medical Summary | Summary of Care ---
Author Name Unknown Organization [facility] Address [address] [facility] [place] [address] Phone [phone] Care Team Providers Care Wind Turbine Technician Name Role Phone Unavailable Primary Care Provider Unavailabl e Reason for Visit * Reason Comments eRx-Medication Refill Encounter Details Date Type Department Care Team (Late st Contact Info) Description 07/02/2023 Refill Family Medicine [address] [place] [phone] Gilbert Calloway MD [address] [place] [address] [place] [address] Allergies Active Allergy Reactions Criticality Noted Date Comments Ergotamine 03/01/2000 vomit Nitroglycerin 03/14/2007 vomitting documented as of this encounter (statuses as of 07/04/2023) Medications Medication Sig Dispensed Refills Start Date [...] FOR anxiety 30 Tablet 1 07/04/2023 Active documented as of this encounter (statuses as of 07/04/2023) Active Problems Problem Noted Date Diagnosed Date [...] discuss her pain concerns. She is aware [facility] does not manage chronic pain meds. 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[place] co ronary artery of [place] heart without angina pectoris Last Assessment & Plan: Stable no angina -continue rosuvastatin, metopropolol, Anxiety state Last Assessment & Plan: Stable on buspar, Primary hypertension Gastroesophageal reflux dise ase with esophagitis without hemorrhage Last Assessment & Plan: symptoms controlled on pantoprazole Scoliosis of lumbar spine Mixed incontinence urge and stress (male)(female ) documented as of this encounter (statuses as of 07/04/2023) Resolved Problems Problem Noted Date Diagnosed Date [...] ulcer 06/30/2014 06/26/2017 Overview: hgb 7.4 admitted [facility] CKD (chronic kidney disease) [...] as of this encounter (statuses as of 07/04/2023) Immunizations Name Administration Dates Next Due COVID-19 [...] encounter Miscellaneous Notes * Telephone Encounter - Feliberto Lau, [facility] - 07/03/2023 3:33 PM EDTPending Prescriptions: Disp Refills hydrOXYzine HCl 10 MG Oral Tablet [Pharmac*30 Tab*1 Sig: TAKE ONE TABLET BY MOUTH EVERY DAY NEEDED FOR anxiety * Telephone Encounter - Sid FelibertoShawn - 07/03/2023 3:20 PM EDT Pharmacy requesting refills on Hydroxyzine. Medication [facility] [facility] No reason noted for discontinuation. Patient also requesting refills of hydroxyzine in 07/02/23 Telephone encounter as well as the Patient out reach by CHW today. Will forward request to PCP as well as [facility] as patient has follow up with RN tomorrow 07/03/22. [facility] is currently not authorized to approve refills for the pended medication(s) per refill protocol. Please review and approve if appropriate for patient to continue PRN use of hydroxyzine as previous. Did you pend patient's preferred pharmacy and medication before forwarding?yes [facility] [address] [place] Pending Prescriptions: Disp Refills hydrOXYzine HCl 10 MG Oral Tablet (Atarax*30 Tab*1 Sig: TAKE ONE TABLET BY MOUTH EVERY DAY NEEDED FOR anxiety Last Visit: 05/29/2023 (in office), 01/10/2023 (telemedicine) Next Visit: 10/12/2023 If no future appointments scheduled, and last appointment is greater than a year ago, please schedule patient for a follow-up appointment Last date the medication was ordered: 04/17/23 Is this request for a controlled substance?No [...] Description 07/04/2023 2:00 PM EDT Home Visit [facility] [address] [place] [address] Lana Lieberman, KHARI [address] [place] [address] 10/12/2023 10:40 AM EDT Office Visit Family Medicine [address] [place] [phone] Gilbert Calloway MD [address] [place] [address] [place] [address] Health Maintenance Due Date Last Done Comments DTaP,Tdap,and Td Vaccines (1 - Tdap) 11/15/1957 COVID-19 Vaccine (5 - season) 2022 04/19/2020, 04/04/2020, 03/22/2020, Additional history exists Albumin/Creatinine Ratio 07/28/2023 023, 06/09/2020, 03/13/2019, Additional history exists TSH 07/28/2023 07/27/2022, 05/21, 06/09/2020, Additional history exists CKD PHOS USE SMARTSET 87990 10/05/202309/19, 06/08/2021, 09/07/2020, Additional history exists Influenza Vaccine (FLU shot) (Season Ended) 2023 01/10/2022, 11/18/2020, 12/06/2019, Additional history exists CKD HGB USE SMARTSET 29664 03/06/202403/06, 03/06/2023, 10/04/2022, Additional history exists Pneumococcal [...]
--- OUTSIDE RECORDS SUMMARY | 2023-11-03 17:40 | External Medical Summary | Summary of Care ---
Author Name Unknown Organization [facility] Address [address] [place] [address] Phone [phone] Care Team Providers Care Clinical Esthetician Name Role Phone Gilbert Calloway MD Primary Care Provide r Reason for Visit * Reason Onset Date Comments Encounter Created in Error 06/26/2023 Encounter Details Date Type Department Care Team ([facility] st Contact Info) Description 06/17/2023 Telephone Family Practice [address] [place] [address] [facility] Floor 1 [address] [place] [address] Santiago Mckenzie, DO [address] [facility] [address] [place] [address] Encounter created in error Allergies Active Allergy Reactions Criticality Noted Date Comments Ergotamine 03/01/2000 vomit Nitroglycerin 03/14/2007 vomitting documented as of this encounter (statuses as of 06/26/2023) Medications Medication Sig Dispensed Refills Start Date [...] as of this encounter (statuses as of 06/26/2023) Active Problems Problem Noted Date Diagnosed Date [...] Pro-BNP Her weights are stable on [facility]. She appears euvolemic today. Spondylosis of lumbar [...] discuss her pain concerns. 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 Last Assessment & Plan: Stable no angina -continue rosuvastatin, metopropolol, Anxiety state Last Assessment & Plan: Stable on buspar, Primary hypertension Gastroesophageal reflux dise ase with esophagitis without hemorrhage Last Assessment & Plan: symptoms controlled on pantoprazole Scoliosis of lumbar spine Mixed incontinence urge and stress (male)(female ) documented as of this encounter (statuses as of 06/26/2023) Resolved Problems Problem Noted Date Diagnosed Date [...] as of this encounter (statuses as of 06/26/2023) Immunizations Name Administration Dates Next Due COVID-19 [...] Miscellaneous Notes * Telephone Encounter - Santiago Mckenzie DO - 06/26/2023 8:49 AM EDT This encounter was created in error. 06/26/2023, 8:50 AM, Santiago Mckenzie DO documented in this encounter Plan of Treatment Upcoming Encounters Date Type Department Care Team (Late st Contact Info) Description 07/04/2023 2:00 PM EDT [facility] Visit [facility] [address] [place] [address] Lana Lieberman, RN [address] [place] [address] 10/12/2023 10:40 AM EDT Office Visit Family Medicine [address] [place] [phone] Gilbert Calloway MD [address] [place] [address] [place] [address] Health Maintenance Due Date Last Done Comments DTaP,Tdap,and Td Vaccines (1 - Tdap) 11/15/1957 COVID-19 Vaccine (5 - 2022- season) 2022 04/19/2020, 04/04/2020, 03/22/2020, Additional history exists Albumin/Creatinine Ratio 07/28/2023 023, 06/09/2020, 03/13/2019, Additional history exists TSH 07/28/2023 07/27/2022, 05/21, 06/09/2020, Additional history exists CKD PHOS USE SMARTSET 50157 10/05/202309/19, 06/08/2021, 09/07/2020, Additional history exists Influenza Vaccine (FLU shot) (Season Ended) 2023 01/10/2022, 11/18/2020, 12/06/2019, Additional history exists CKD HGB USE SMARTSET 65604 03/06/202403/06, 03/06/2023, 10/04/2022, Additional history exists Pneumococcal [...] of this encounter Visit Diagnoses Diagnosis Encounter Created In Error- Primary documented in this encounter Care Teams Clinical Esthetician Relationship Specialty Start Date End Date Gilbert Calloway MD [address] [place] [address] [place] [address] PCP - General Family Medicine 04/11/23 documented as of this encounter
--- OUTSIDE RECORDS SUMMARY | 2023-11-03 17:40 | External Medical Summary | Summary of Care ---
Author Name Unknown Organization [facility] Address [address] [place] [address] Phone [phone] Care Team Providers Care Dam Tender Name Role Phone Unavailable Primary Care Provider Unavailabl e Encounter Details Date Type Department Care Team (Late st Contact Info) Description 07/05/2023 Population Health External Data Unspecified Department Allergies Active Allergy Reactions Criticality Noted Date Comments Ergotamine 03/01/2000 vomit Nitroglycerin 03/14/2007 vomitting documented as of this encounter (statuses as of 07/05/2023) Medications Medication Sig Dispensed Refills Start Date [...] as of this encounter (statuses as of 07/05/2023) Active Problems Problem Noted Date Diagnosed Date [...] [place] on apixaban Last Assessment & Plan: Her 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[place] co ronary artery of [place] heart without angina pectoris Last Assessment & Plan: Stable no angina -continue rosuvastatin, metopropolol, Anxiety state Last Assessment & Plan: Stable on buspar, Primary hypertension Gastroesophageal reflux dise ase with esophagitis without hemorrhage Last Assessment & Plan: symptoms controlled on pantoprazole Scoliosis of lumbar spine Mixed incontinence urge and stress (male)(female ) documented as of this encounter (statuses as of 07/05/2023) Resolved Problems Problem Noted Date Diagnosed Date [...] as of this encounter (statuses as of 07/05/2023) Immunizations Name Administration Dates Next Due COVID-19 [...] Description 07/18/2023 4:00 PM EDT [facility] [address] [facility] [place] [address] Lana Lieberman, KHARI 132 [facility] [place] [address] 10/12/2023 10:40 AM EDT Office Visit Family Medicine [address] [place] [phone] Gilbert Calloway MD [address] [place] [address] [place] [address] Health Maintenance Due Date Last Done Comments DTaP,Tdap,and Td Vaccines (1 - Tdap) 11/15/1957 COVID-19 Vaccine (5 - 2022-24 season) 2022 04/19/2020, 04/04/2020, 03/22/2020, Additional history exists Albumin/Creatinine Ratio 07/28/2023 023, 06/09/2020, 03/13/2019, Additional history exists TSH 07/28/2023 07/27/2022, 05/21, 06/09/2020, Additional history exists CKD PHOS USE SMARTSET 07229 10/05/202309/19, 06/08/2021, 09/07/2020, Additional history exists Influenza Vaccine (FLU shot) (Season Ended) 2023 01/10/2022, 11/18/2020, 12/06/2019, Additional history exists CKD HGB USE SMARTSET 18058 03/06/202403/06, 03/06/2023, 10/04/2022, Additional history exists Pneumococcal [...]
--- OUTSIDE RECORDS SUMMARY | 2023-11-03 17:40 | External Medical Summary | Summary of Care ---
Author Name Unknown Organization [facility] Address [address] [facility] [place] [address] Phone [phone] Care Team Providers Care Rn Field Name Role Phone Gilbert Calloway MD Primary Care Provide r Reason for Visit * Reason Onset Date Comments [facility]: Maintenance 06/19/2023 Encounter Details Date Type Department Care Team (Late st Contact Info) Description 06/19/2023 12:00 PM EDT Scheduled Telephone [facility], [facility] 132 [facility] [place] [address] Coordinator, [facility] [address] [facility] [place] [address] Allergies Active Allergy Reactions Criticality Noted Date Comments Ergotamine 03/01/2000 vomit Nitroglycerin 03/14/2007 vomitting documented as of this encounter (statuses as of 06/19/2023) Medications Medication Sig Dispensed Refills Start Date [...] as of this encounter (statuses as of 06/19/2023) Active Problems Problem Noted Date Diagnosed Date [...] discuss her pain concerns. 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 Last Assessment & Plan: Stable no angina -continue rosuvastatin, metopropolol, Anxiety state Last Assessment & Plan: Stable on buspar, Primary hypertension Gastroesophageal reflux dise ase with esophagitis without hemorrhage Last Assessment & Plan: symptoms controlled on pantoprazole Scoliosis of lumbar spine Mixed incontinence urge and stress (male)(female ) documented as of this encounter (statuses as of 06/19/2023) Resolved Problems Problem Noted Date Diagnosed Date [...] as of this encounter (statuses as of 06/19/2023) Immunizations Name Administration Dates Next Due COVID-19 [...] Telephone Encounter - Daiana Romano RN - 06/19/2023 3:27 PM EDT Left message on voicemail with [facility] recommendation and reminder of scheduled CM home visit for tomorrow 06/20/23. * Telephone Encounter - Avel Doss MD - 06/19/2023 1:07 PM EDT Would still have her initiate the DTP given some ongoing symptoms. The RN performing the home visittomorrow can decide whether or not this needs to be extended or altogether stopped. E * Telephone Encounter - Daiana Romano RN - 06/19/2023 12:20 PM EDT Images from the original note were not included. [facility] Telephonic Nurse Follow-Up Call [facility] Subprogram: Short-Term Management (less than 3 months) Follow Up Call Type: Routine follow up call / Status Check Acute issue requiring follow-up call: Other: f/u DTP Objective: 06/15/2023 2:05 PM 05/29/2023 3:07 PM 05/16/2023 11:54 AM 04/11/2023 11:01 AM 04/09/2023 4:00 PM VITALS ACROSS ENCOUNTERS BP 115/50 100/58 142/72 128/82 118/72 Pulse 70 78 64 60 88 Weight 71.3 kg 72.1 kg 72.1 kg BMI 30.06 BMI 29.69 kg/m2 30.04 kg/m2 30.04 kg/m2 Remote Patient Monitoring: [facility] Scale: Oxygen Needs: NO supplemental oxygen needs identified DME Needs: NO DME needs identified Medications: Current DTP: Other: torsemide 20 mg daily x 3 days, started 06/17/23. Subjective: Condition Status: Improvement in symptoms but not at baseline Current Concerns: Spoke with pt who reports she has not yet started DTP of torsemide 20 mg daily x 3 days as advised over the weekend as she did not yet have the refill of torsemide. Pt reports she did receive the refill yesterday, did not yet take today's dose. She is wondering if she should begin the DTP now on 06/19/23 and continue over the next 3 days. Wt today is 159.4 (dry wt 157-158), pt reports improvement in swelling of ankles and feet. Has been elevating feet and limiting sodium intake. Reports some SOBbut says "it's nothing I can't handle," no cough. Sleeps in a bed at night. Also reports poor sleep, getting only 2-3 hrs per night, has tried melatonin with no help. Disposition: Routed to [facility] and/or [facility] at Home Care Team for further advice and RNCM visit scheduled pt hasexisting appt for RNCM home visit tomorrow 06/20/23 Future Visits Scheduled: Future Appointments-next 60 days Date/Time Provider Specialty Dept Phone 06/20/2023 4:00 PM Lana Lieberman, RN [facility] [phone] 10/12/2023 10:40 AM (Arrive by 10:25 AM) Gilbert Calloway MD Family Medicine [phone] Daiana Romano RN documented in this encounter Plan of Treatment Upcoming Encounters Date Type Department Care Team (Late st Contact Info) Description 06/20/2023 4:00 PM EDT Home Visit [facility] at [employer], [facility] 132 [facility] [place] [address] Lana Lieberman RN 132 [facility] [place] [address] 10/12/2023 10:40 AM EDT Office Visit Family Medicine [address] [place] [phone] Gilbert Calloway MD [address] [place] [address] [place] [address] Health Maintenance Due Date Last Done Comments DTaP,Tdap,and Td Vaccines (1 - Tdap) 11/15/1957 COVID-19 Vaccine (5 - 2022- season) 2022 04/19/2020, 04/04/2020, 03/22/2020, Additional history exists Albumin/Creatinine Ratio 07/28/[address] 023, 06/09/2020, 03/13/2019, Additional history exists TSH 07/28/2023 07/27/2022, 05/21, 06/09/2020, Additional history exists CKD PHOS USE SMARTSET 51145 10/05/202309/19, 06/08/2021, 09/07/2020, Additional history exists Influenza Vaccine (FLU shot) (Season Ended) 2023 01/10/2022, 11/18/2020, 12/06/2019, Additional history exists CKD HGB USE SMARTSET 07172 03/06/202403/06, 03/06/2023, 10/04/2022, Additional history exists Pneumococcal [...] as of this encounter Care Teams Rn Field Relationship Specialty Start Date End Date Gilbert Calloway MD [address] [place] [address] [place] [phone] PCP - General Family Medicine 04/11/23 documented as of this encounter
--- OUTSIDE RECORDS SUMMARY | 2023-11-03 17:40 | External Medical Summary | Summary of Care ---
Author Name Unknown Organization [facility] Address [address] [place] [address] Phone [phone] Care Team Providers Care Chairperson Anesthesiology Name Role Phone Gilbert Calloway MD Primary Care Provide r Reason for Visit * Reason Comments eRx-Medication Refill Encounter Details Date Type Department Care Team (Late st Contact Info) Description 06/26/2023 Refill Family Medicine [address] [place] [phone] Con Coughlin MD [address] [place] [address] [place], [place] [phone] Allergies Active Allergy Reactions Criticality Noted Date [...] 05/03/2023 Active predniSONE 10 MG Oral Tablet (Deltasone)Indicati ons:Chronic bilateral low back pain without sciatica Take [...] THE MORNING 90 Tablet 1 06/26/2023 Active Metoprolol Succinate ER 50 MG Oral Tablet Extended Release 24 Hour (toPROL XL) Take 1 Tablet by mouth in the morning. 90 Tablet 1 01/16/2023 06/26/19 24 Discontinued documented as of this encounter [...] BMP Pro-BNP Her weights are stable on [facility]. She appears euvolemic today. Spondylosis of lumbar [...] discuss her pain concerns. She is aware [facility] does not manage chronic pain meds. [...] joint replacement status 09/09/2002 Atherosclerosis of [place] ronary artery of [place] heart without angina pectoris Last Assessment & [...] encounter Miscellaneous Notes * Telephone Encounter - Ty Vasquez [facility] - 06/26/2023 9:46 PM EDT Signed Prescriptions: Disp Refills Metoprolol Succinate ER 50 MG Oral Tablet *90 Tab*1 Sig: TAKE ONE TABLET BY MOUTH IN THE MORNINGAuthorizing Provider: Tammy CALLOWAY User: TY VASQUEZ documented in this encounter Plan of Treatment Upcoming Encounters Date Type Department Care Team (Late st Contact Info) Description 07/04/2023 2:00 PM EDT Home Visit [facility] [address] [address] Lana Lieberman RN [address] [place] [place] [address] 10/12/2023 10:40 AM EDT Office Visit Family Medicine [address] [place] [phone] Gilbert Calloway MD [address] [place] [address] [place] [address] Health Maintenance Due Date Last Done Comments DTaP,Tdap,and Td Vaccines (1 - Tdap) 11/15/1957 COVID-19 Vaccine ( season) 2022 04/19/2020, 04/04/2020, 03/22/2020, Additional history exists Albumin/Creatinine Ratio 07/28/2023 023, 06/09/2020, 03/13/2019, Additional history exists TSH 07/28/2023 07/27/2022, 05/21, 06/09/2020, Additional history exists CKD PHOS USE SMARTSET 95545 10/05/2023 0807/2022, 06/08/2021, 09/07/2020, Additional history exists Influenza Vaccine (FLU shot) (Season Ended) 2023 01/10/2022, 11/18/2020, 12/06/2019, Additional history exists CKD HGB USE SMARTSET 53187 03/06/202403/06, 03/06/2023, 10/04/2022, Additional history exists Pneumococcal [...] filedocumented as of this encounter Care Teams Chairperson Anesthesiology Relationship Specialty Start Date End Date Gilbert Calloway MD [address] [place] [address] [address] [phone] PCP - General Family Medicine 04/11/23 documented as of this encounter
--- OUTSIDE RECORDS SUMMARY | 2023-11-03 17:40 | External Medical Summary | Summary of Care ---
Author Name Unknown Organization [facility] Address [address] [facility] [place] [address] Phone [phone] Care Team Providers Care Supervisor Of Communications Name Role Phone Gilbert Calloway MD Primary Care Provide r Reason for Visit * Reason Onset Date Comments [facility]: Maintenance 06/19/2023 Encounter Details Date Type Department Care Team (Late st Contact Info) Description 06/19/2023 12:00 PM EDT Scheduled Telephone [facility], [facility] [address] [facility] [place] [address] Coordinator, [facility] [address] [facility] [place] [address] Allergies Active Allergy Reactions Criticality Noted Date [...] discuss her pain concerns. She is aware [facility] does not manage chronic pain [...] PM EDT Left message on voicemail with [facility] recommendation and reminder of scheduled CM home [...] [facility] Telephonic Nurse Follow-Up Call [facility] Subprogram: Short-Term Management (less than 3 [...] 30.04 kg/m2 30.04 kg/m2 Remote Patient Monitoring: [facility] Scale: Oxygen Needs: NO supplemental oxygen needs [...] melatonin with no help. Disposition: Routed to [facility] and/or [facility] Care Team for further advice and RNCM visit scheduled pt hasexisting appt for RNCM home visit tomorrow 06/20/23 Future Visits Scheduled: Future Appointments-next 60 days Date/Time Provider Specialty Dept Phone 06/20/2023 4:00 PM Lana Lieberman, RN [facility] [phone] 10/12/2023 10:40 AM (Arrive by 10:25 AM) Gilbert Calloway MD Family Medicine [phone] Daiana Romano RN documented in this encounter Plan of Treatment Upcoming Encounters Date Type Department Care Team (Late st Contact Info) Description 06/20/2023 4:00 PM EDT Home Visit [facility], [facility] [address] [facility] [place] [address] Lana Lieberman RN 132 [facility] [place] [address] 10/12/2023 10:40 AM EDT Office Visit Family Medicine [address] [place] [phone] Gilbert Calloway MD [address] [place] [address] [place] [address] Health Maintenance Due Date Last Done Comments DTaP,Tdap,and Td Vaccines (1 - Tdap) 11[birth year]15/1957 COVID-19 Vaccine (5 - 2022- season) 2022 04/19/2020, 04/04/2020, 03/22/2020, Additional history exists Albumin/Creatinine Ratio 07/28/20232 023, 06/09/2020, 03/13/2019, Additional history exists TSH 07/28/2023 07/27/2022, 05/21, 06/09/2020, Additional history exists CKD PHOS USE SMARTSET 10747 10/05/202309/19, 06/08/2021, 09/07/2020, Additional history exists Influenza Vaccine (FLU shot) (Season Ended) 2023 01/10/2022, 11/18/2020, 12/06/2019, Additional history exists CKD HGB USE SMARTSET 40312 03/06/202403/06, 03/06/2023, 10/04/2022, Additional history exists Pneumococcal [...] as of this encounter Care Teams Supervisor Of Communications Relationship Specialty Start Date End Date Gilbert Calloway MD [address] [place] [address] [address] [phone] PCP - General Family Medicine 04/11/23 documented as of this encounter
--- OUTSIDE RECORDS SUMMARY | 2023-11-03 17:40 | External Medical Summary | Summary of Care ---
Author Name Unknown Organization [facility] Address [address] [facility] [address] Phone [phone] Care Team Providers Care Workers Compensation Claims Examiner Name Role Phone Unavailable Primary Care Provider Unavailabl e Encounter Details Date Type Department Care Team (Late st Contact Info) Description 07/04/2023 2:00 PM EDT Home Visit [facility], [facility] [address] [place] [address] Lana Lieberman, KHARI [address] [place] [place] [address] Allergies Active Allergy Reactions Criticality Noted Date [...] FOR anxiety 30 Tablet 1 07/04/2023 Active predniSONE 10 MG Oral Tablet (Deltasone)Indicatio ns:Chronic bilateral low back pain without sciatica Take 5 tabs for 2 days, 4 tabs for 2 days, 3 tabs for 2 days, 2 tabs for 2 days 1 tab for 2 days 30 Tablet 0 05/29/2023 4 Discontinue d(Medicatio n List Clean Up) [...] BMP Pro-BNP Her weights are stable on [facility]. She appears euvolemic today. Spondylosis of lumbar [...] discuss her pain concerns. She is aware [facility] does not manage chronic pain meds. With her history of confusion, would recommend against use of narcotic medication. 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 Last Assessment & [...] Sign Reading Time Taken Comments Blood Pressure 132/84 07/04/2023 1:17 PM EDT Pulse 78 07/04/2023 1:17 PM EDT Temperature 36.9 C (98.5 F) 07/04/2023 1:17 PM ED T Respiratory Rate 16 07/04/2023 1:17 PM EDT Oxygen Saturation 97% 07/04/2023 1:17 PM EDT Inhaled Oxygen Concentration - - Weight - - Height - - Body Mass Index - - documented in this encounter Progress Notes * Lana Lieberman RN - 07/04/2023 1:16 PM EDT [facility] Certified Master Safe TechnicianPharmacognosist Visit Date: 07/04/2023 Time: 1:16 PM Name: Zoya Howard : 1938 Current Concerns: Pt seen for follow-up Medical hx includes: Anxiety, Afib, CHF, HTN, CKD Reports having increased anxiety, but is unable to pinpoint what is triggering anxiousness Feels that it may be related to feeling that she does not fit in at her current apartment complex, considering moving to another apartment nearby Hydroxyzine refilled yesterday, took a dose last evening and reports it offered some relief Pt has three Ambien pills but reports that she does not like to take them because she understands that it has major side effects Reports "I just wish they would give me something to sedate me, will put me to sleep for a while" Discouraged use of ambien. VS WNL HR 78 bpm, irregular rhythm Lungs clear bilaterally SOB with exertion No edema to BLE at this time Voiding without difficulty Bowels WNL per pt report Voiding without difficulty Appetite good States taking fluids well Problems/Symptoms: Review of Systems Constitutional: Negative. HENT: Negative. Eyes: Negative. Respiratory: Negative. Genitourinary: Negative. Musculoskeletal: Positive for gait problem. Skin: Negative. Psychiatric/Behavioral: The patient is nervous/anxious. Physical Exam: BP 132/84 (BP Site: Right Arm, BP Position: Sitting, BP Cuff Size: Regular) | Pulse 78 | Temp 36.9 C (98.5 F) (Tympanic) | Resp 16 | SpO2 97% Pain 0 Physical Exam HENT: Mouth/Throat: Pharynx: No oropharyngeal exudate. Cardiovascular: Rate and Rhythm: Normal rate. Rhythm irregular. Pulmonary: Effort: Pulmonary effort is normal. Breath sounds: Normal breath sounds. Abdominal: General: Abdomen is flat. Palpations: Abdomen is soft. Musculoskeletal: General: Normal range of motion. Cervical back: Normal range of motion. Skin: General: Skin is warm and dry. Capillary Refill: Capillary refill takes 2 to 3 seconds. Neurological: Mental Status: She is alert and oriented to person, place, and time. Psychiatric: Behavior: Behavior normal. Comments: Anxious [facility]-10 Completed this Visit: No. Routine visit and No falls since last visit Treatment/Plan: Continue medications as prescribed Keep all upcoming MD appointments Low Na diet Weigh on [facility] scales daily Fluids encouraged Fall precautions; use [facility] KHARI CM follow up in 2 weeks for close follow up! Home Interventions Provided: Reinforced current Plan of Care, including self-management and medication regimen Patient's Goals of Care: Stay out of the hospital Stay current with medication regimen every single day Get out and drive my car Patient's 'Red Flags': N/V not relieved by Zofran Weight increase 2-3 lbs/24 hours SOB above baseline Patient Needs to Remember: Call [facility] with any medical concerns/ red flags Referrals Needed: N/A Follow Up: Is there cellular connectivity/connectivity in the home? Yes Does the patient have internet in the home? No Patient encouraged to call the intake phone number for all urgent but not emergent issues. Scheduled to follow up with patient in 2 weeks, 07/17. Lana Schuler RN 07/04/2023 1:16 PM documented in this encounter Plan of Treatment Upcoming Encounters Date Type Department Care Team (Late st Contact Info) Description 07/18/2023 4:00 PM EDT Home Visit [facility] [address] [place] [address] Lana Lieberman, RN [address] [place] [address] 10/12/2023 10:40 AM EDT Office Visit Family Medicine [address] [place] [phone] Gilbert Calloway MD [address] [place] [address] [place] [address] Health Maintenance Due Date Last Done Comments DTaP,Tdap,and Td Vaccines (1 - Tdap) 11/15/1957 COVID-19 Vaccine (5 - 2022- season) 2022 04/19/2020, 04/04/2020, 03/22/2020, Additional history exists Albumin/Creatinine Ratio 07/28/2023 023, 06/09/2020, 03/13/2019, Additional history exists TSH 07/28/2023 07/27/2022, 05/21, 06/09/2020, Additional history exists CKD PHOS USE SMARTSET 85940 10/05/202309/19, 06/08/2021, 09/07/2020, Additional history exists Influenza Vaccine (FLU shot) (Season Ended) 2023 01/10/2022, 11/18/2020, 12/06/2019, Additional history exists CKD HGB USE SMARTSET 57071 03/06/202403/06, 03/06/2023, 10/04/2022, Additional history exists Pneumococcal [...]
--- OUTSIDE RECORDS SUMMARY | 2023-11-03 17:40 | External Medical Summary | Summary of Care ---
Author Name Unknown Organization [facility] Address [address] [place] [address] Phone [phone] Care Team Providers Care Stone Lathe Operator Name Role Phone Gilbert Calloway MD Primary Care Provide r Reason for Visit * Reason Onset Date Comments Appointment 06/20/2023 Encounter Details Date Type Department Care Team (Late st Contact Info) Description 06/20/2023 Telephone [facility], [facility] [address] [place] [address] Services, Scheduling [address] [place] [address] Appointment (/) Allergies Active Allergy Reactions Criticality Noted Date Comments Ergotamine 03/01/2000 vomit Nitroglycerin 03/14/2007 vomitting documented as of this encounter (statuses as of 06/20/2023) Medications Medication Sig Dispensed Refills Start Date [...] as of this encounter (statuses as of 06/20/2023) Active Problems Problem Noted Date Diagnosed Date 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[place] co ronary artery of [place] heart without angina pectoris Last Assessment & Plan: Stable no angina -continue rosuvastatin, metopropolol, Anxiety state Last Assessment & Plan: Stable on buspar, Primary hypertension Gastroesophageal reflux dise ase with esophagitis without hemorrhage Last Assessment & Plan: symptoms controlled on pantoprazole Scoliosis of lumbar spine Mixed incontinence urge and stress (male)(female ) documented as of this encounter (statuses as of 06/20/2023) Resolved Problems Problem Noted Date Diagnosed Date [...] as of this encounter (statuses as of 06/20/2023) Immunizations Name Administration Dates Next Due COVID-19 [...] encounter Miscellaneous Notes * Telephone Encounter - Sonia Callaway OSA - 06/20/2023 3:42 PM EDT Per Request via TT Lana Lieberman she advised to schedule KARELY visit tomorrow ensure she takes hermeds tomorrow(starts new pack 5/2).... Called lmom to confirm if 5/2 at 3:00pm is a good date and time. documented in this encounter Plan of Treatment Upcoming Encounters Date Type Department Care Team (Late st Contact Info) Description 06/20/2023 4:00 PM EDT Home Visit [facility], [facility] [address] [address] Lana Lieberman, RN [address] [place] [address] 06/21/2023 3:00 PM EDT Home Visit [facility] [address] [facility] [place] [address] [facility] [employer] [address] [place] [address] [place] [address] 07/04/2023 2:00 PM EDT Home Visit [facility], [facility] [address] [address] Lana Lieberman RN [address] [place] [address] 10/12/2023 10:40 AM EDT Office Visit Family Medicine [address] [place] [phone] Gilbert Calloway MD [address] [place] [address] [address] [place] [address] Health Maintenance Due Date Last Done Comments DTaP,Tdap,and Td Vaccines (1 - Tdap) 11[birth year]15/1957 COVID-19 Vaccine ( season) 2022 04/19/2020, 04/04/2020, 03/22/2020, Additional history exists Albumin/Creatinine Ratio 07/28/2023 023, 06/09/2020, 03/13/2019, Additional history exists TSH 07/28/2023 07/27/2022, 05/21, 06/09/2020, Additional history exists CKD PHOS USE SMARTSET 06273 10/05/202309/19, 06/08/2021, 09/07/2020, Additional history exists Influenza Vaccine (FLU shot) (Season Ended) 2023 01/10/2022, 11/18/2020, 12/06/2019, Additional history exists CKD HGB USE SMARTSET 27616 03/06/202403/06, 03/06/2023, 10/04/2022, Additional history exists Pneumococcal [...] filedocumented as of this encounter Care Teams Stone Lathe Operator Relationship Specialty Start Date End Date Gilbert Calloway MD [address] [place] [address] [address] [address] PCP - General Family Medicine 04/11/23 documented as of this encounter
--- NOTE | 2023-11-03 17:41 | Emergency Department Note ---
Impression & Plan SOB (shortness of breath), Weakness, Acute UTI, Elevated troponin ED Provider Note NAME: Marquez LEACH AGE: 84 SEX: F : 11/14/1938 ARRIVES VIA: Ambulance INFORMANT: [Patient][EMS] ED PROVIDER(S): [Avel Santiago MD] CHIEF COMPLAINT: Short of breath HISTORY OF PRESENT ILLNESS: The patient is an 84-year-old female who has felt short of breath for 2 days. She feels weak. She has not had any real increased cough. No fever. No chest pain. The patient does not have any diagnosed lung disease. She does not wear oxygen at baseline. Because of the ongoing dyspnea, she felt she should be evaluated. She presents by ambulance. PMHx/PSHx/Social Hx: See Below PHYSICAL EXAM: GENERAL: Patient is in no acute distress. HEENT: No acute trauma, normocephalic atraumatic, mucous membranes moist, no nasal congestion. NECK: No stridor, no adenopathy, no meningismus, trachea is midline. LUNGS: Clear to auscultation bilaterally, no wheeze, no rhonchi, breath sounds equal. HEART: 3/6 systolic murmur heard best at the right sternal border. Regular rate and rhythm. ABDOMEN: Soft, nontender, no peritonitis. EXTREMITIES: No cyanosis, full range of motion of all the joints without pain or difficulty. NEUROLOGIC: Oriented x 3, no acute motor or sensory deficits, no focal weakness. SKIN: No jaundice, no diaphoresis. DIFFERENTIAL DIAGNOSIS: Viral illness, bronchitis or pneumonia, CHF, anemia, NH, among others. EMERGENCY DEPARTMENT PROCEDURES: MEDICAL DECISION MAKING: There is no leukocytosis or worrisome anemia. There is a normal platelet count. No coagulopathy. There is some renal insufficiency with a creatinine of 1.25, the patient has a history of renal insufficiency. No electrolyte abnormality in need of emergent correction. No concerning liver enzyme elevation. BNP was somewhat elevated consistent with potential fluid overload. Chest film did not show CHF or pneumonia. ECG showed sinus rhythm, no obvious ST elevation. Cardiac enzyme testing x 1 is slightly elevated. This elevation could be secondary to cardiac injury or just mismatch. Urinalysis does show findings of infection. Respiratory bio fire was negative. Chest CT did not show PE, no pneumonia. The patient presents with some weakness, shortness of breath, fatigue. She appears to have a UTI as the cause for her difficulty. Given her age, the troponin elevation, her shortness of breath complaint and findings of UTI, I do think a hospital stay would be warranted. Patient received IV ceftriaxone as antibiotic coverage. She was given IV Tylenol for a headache. She was given a small dose of IV labetalol for her elevated blood pressure. I spoke with the patient, I spoke with case management. The on-call hospitalist was consulted. Prior/Outside records/notes reviewed: Today's EMS notes describing her presentation and transport to this hospital. ECG per my interpretation: Indication was shortness of breath. The ECG shows a sinus rhythm with a first-degree AV block. There is a potential old septal infarct. There is no acute ST elevation, no PVCs. The QTc is 415. Heart rate is 84. Continuous Cardiac Monitoring per my interpretation: An order was placed for continuous cardiac monitoring. The monitor shows a rate of 86 with sinus rhythm with a first AV block. Imaging/x-ray results per my interpretation: Chest x-ray shows some cardiomegaly. I see no CHF or focal pneumonia. Chronic Medical/Social conditions affecting care: Advanced age. Care/Management discussed with: Case management, the on-call hospitalist. Level of care consideration(s): After review of the information above and other included data: --I believe the patient requires escalation of care to admission DISPOSITION: Admission Past Med/Surg History Problem List (Updated 11/03/23 @ 23:30 by Avel Santiago MD) Elevated troponin (Acute) Acute UTI (Acute) Weakness (Acute) SOB (shortness of breath) (Acute) Acute UTI History of coronary artery disease (Acute) Precordial chest pain (Acute) Drug noncompliance (Acute) Chest pain (Acute) History of rheumatic fever Bronchospasm CAD (coronary artery disease) Hypophosphatemia Hypomagnesemia Acute on chronic diastolic CHF (congestive heart failure) Pneumonia (Acute) Sepsis due to pneumonia Hyperparathyroidism Hypercalcemia Anticoagulant long-term use Precordial chest pain (Acute) SOB (shortness of breath) (Acute) Diffuse abdominal pain (Acute) Nausea (Acute) (HFpEF) heart failure with preserved ejection fraction Paroxysmal A-fib Chronic heart failure with preserved ejection fraction (HFpEF) Labile hypertension Sinus pause Chest pain, atypical Dizziness Nausea & vomiting Vertigo (Acute) Hypertension (Acute) Headache (Acute) Hypothyroidism BROUSSARD (dyspnea on exertion) Weakness (Acute) KIM (acute kidney injury) (Acute) Hypotension (Acute) Acute on chronic heart failure with preserved ejection fraction (HFpEF) Shortness of breath BROUSSARD (dyspnea on exertion) Dyspnea (Acute) Elevated brain natriuretic peptide (BNP) level (Acute) Bilateral edema of lower extremity (Acute) Diastolic CHF with preserved left ventricular function, NYHA class 2 Persistent atrial fibrillation Greater trochanteric bursitis of right hip Anxiety (Chronic) Chronic osteoarthritis (Chronic) Gastric ulcer (Chronic) GERD (gastroesophageal reflux disease) (Chronic) DJD of left shoulder Dehydration (Acute) Primary osteoarthritis, right shoulder Diarrhea (Acute) Urinary incontinence (Chronic) Syncope and collapse Orthostatic hypotension Arthritis of right shoulder region (Acute) Depression with anxiety (Acute) Somatic dysfunction of sacroiliac joint (Acute) Insomnia (Acute) Edema Acute hip pain (Acute) Ambulatory dysfunction (Acute) Arthritis Spinal stenosis Acid reflux OCCASIONAL Depression History of gastric ulcer 2012 History of blood transfusion 2012 03/2 GASTRIC ULCER Medical History Atrial fibrillation with rapid ventricular response (11/2022) Fall New onset a-fib Moderate mitral regurgitation Mild aortic stenosis Transient ischemic attack (TIA) ~2012>REASON FOR PLAVIX Osteoarthritis Chronic back pain Dyslipidemia Chronic kidney disease stage 3 Hypertension Surgical History 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 History of cardiac cath NO STENTS History of coronary artery bypass graft 1998 (1 VESSEL) S/P epidural steroid injection History of esophagogastroduodenoscopy (EGD) S/p reverse total shoulder arthroplasty RT/LEFT History of abdominoplasty PANNICULECTOMY History of colonoscopy History of arthroplasty of right hip History of arthroplasty of left hip History of hysterectomy with oophorectomy History of arthroplasty of left shoulder History of tonsillectomy and adenoidectomy H/O bilateral salpingo-oophorectomy with hyter Family History Father , age 74 Allergic reaction Mother , 80s CHF (congestive heart failure) Other No family history of adverse response to anesthesia Social History Smoking Status: Never smoker Second Hand Exposure: No; Do You Dip or Chew Tobacco: No; Hx Alcohol Use: No Hx Substance Use: No Preferred Language: Kittitian Communication Ability: Effective Visual Impairment: No Limitations [employer] Required: No Beliefs That Will Affect Care: None marital status: Single Current Living Situation: Alone Current Living Situation Comment: [facility] How many Children do You have: 0 Feels Safe at Home: Yes Assistive Devices: Walker Allergies Allergies Allergy/AdvReac Type Severity Reaction Status Date / Time nitroglycerin AdvReac Severe "PROJECTILE Verified 01/29/23 15:15 VOMITTING" ergotamine AdvReac Intermediate vomiting Verified 01/29/23 15:15 Home Meds Home Medications Medication Instructions Recorded Confirmed apixaban 5 mg tablet (Eliquis) 5 mg PO BID 11/03/23 11/03/23 benzonatate 100 mg capsule 100 mg PO TID PRN Cough 11/03/23 11/03/23 buspirone 10 mg tablet 10 mg PO BID 11/03/23 11/03/23 calcitriol 0.25 mcg capsule 0.25 mcg PO UD 11/03/23 11/03/23 gabapentin 300 mg capsule 300 mg PO TID 11/03/23 11/03/23 hydroxyzine HCl 10 mg tablet 10 mg PO TID PRN Anxiety 11/03/23 11/03/23 levothyroxine 100 mcg tablet 100 mcg PO DAILY 11/03/23 11/03/23 losartan 25 mg tablet 25 mg PO DAILY 11/03/23 11/03/23 metoprolol succinate 50 mg 50 mg PO DAILY 11/03/23 11/03/23 tablet,extended release 24 hr pantoprazole 40 mg tablet,delayed 40 mg PO BID 11/03/23 11/03/23 release rosuvastatin 10 mg tablet 10 mg PO HS 11/03/23 11/03/23 torsemide 20 mg tablet 20 mg PO DAILY PRN Edema 11/03/23 11/03/23 trazodone 150 mg tablet 150 mg PO HS 11/03/23 11/03/23 Results & Data (ED) Vital Signs Vital Signs - 24 hr 11/03/23 17:38 11/03/23 17:38 11/03/23 17:38 Temperature 36.9 C Temperature Source Oral Pulse Rate 94 H Pulse Rate [Apical] Pulse Strength [Apical] Respiratory Rate 20 Respiratory Effort / Characteristics Non-Labored Respiratory Depth Respiratory Pattern Blood Pressure 174/96 H Blood Pressure [Right Arm] Blood Pressure Mean 122 Blood Pressure Mean [Right Arm] Pulse Oximetry 100 Oxygen Delivery Method Room Air Room Air Room Air Sepsis Recent Fever Within 48 Hours No Sepsis New/Unexplained Change in Mental Status No Sepsis Action Taken by Nursing No Action Required 11/03/23 17:40 11/03/23 17:50 11/03/23 19:04 Temperature Temperature Source Pulse Rate 78 93 H Pulse Rate [Apical] Pulse Strength [Apical] Respiratory Rate 20 Respiratory Effort / Characteristics Respiratory Depth Respiratory Pattern Blood Pressure Blood Pressure [Right Arm] Blood Pressure Mean Blood Pressure Mean [Right Arm] Pulse Oximetry 98 99 Oxygen Delivery Method Room Air Room Air Sepsis Recent Fever Within 48 Hours Sepsis New/Unexplained Change in Mental Status Sepsis Action Taken by Nursing 11/03/23 19:04 11/03/23 20:51 11/03/23 21:20 Temperature 37.1 C Temperature Source Oral Pulse Rate 105 H Pulse Rate [Apical] 93 H 91 H Pulse Strength [Apical] Normal Respiratory Rate 18 19 Respiratory Effort / Characteristics Non-Labored Spontaneous Non-Labored Spontaneous Respiratory Depth Normal Normal Respiratory Pattern Regular Regular Blood Pressure 171/92 H Blood Pressure [Right Arm] 158/108 H 143/72 H Blood Pressure Mean Blood Pressure Mean [Right Arm] 124 95 Pulse Oximetry 98 97 Oxygen Delivery Method Room Air Room Air Sepsis Recent Fever Within 48 Hours Sepsis New/Unexplained Change in Mental Status Sepsis Action Taken by Residential Medications Current Medication List: was personally reviewed by me Laboratory Data Attestation: I reviewed the patient's lab results. 11/03/23 17:47 11/03/23 17:47 Lab Results 11/03/23 11/03/23 11/03/23 Range/Units 17:47 18:03 20:39 WBC 5.07 (4.8-10.8) K/ul RBC 4.06 L (4.20-5.40) M/uL Hgb 11.6 L (12.0-16.0) g/dl Hct 35.8 L (37.0-47.0) % MCV 88.2 (80.0-100.0) fL MCH 28.6 (25.0-34.0) pg MCHC 32.4 (32.0-36.0) g/dL RDW Std Deviation 45.9 (36.4-46.3) fL RDW Coeff of Howie 14.2 (11.5-14.5) % Plt Count 203 (130-400) K/uL MPV 9.6 (9.4-12.4) fL Immature Gran % (Auto) 0.2 % Neut % (Auto) 55.2 % Lymph % (Auto) 32.5 % Luna % (Auto) 9.9 % Eos % (Auto) 1.4 % Baso % (Auto) 0.8 % Neut # (Auto) 2.80 (1.40-6.50) K/uL Lymph # (Auto) 1.65 (1.20-3.40) K/uL Luna # (Auto) 0.50 (0.11-0.59) K/uL Eos # (Auto) 0.07 (0.00-0.50) K/uL Baso # (Auto) 0.04 (0.00-0.20) K/uL Immature Gran # (Auto) 0.01 (0.01-0.20) K/uL PT 11.8 (9.0-12.0) Seconds INR 1.1 (0.9-1.1) APTT 25 (21-31) Seconds PTT Ratio 0.9 Sodium 136 (136-145) mmol/L Potassium 4.3 (3.5-5.1) mmol/L Chloride 104 (98-107) mmol/L Carbon Dioxide 23 (21-32) mmol/L Anion Gap 9 (3-11) BUN 20 (6-23) mg/dl Creatinine 1.25 H (0.6-1.2) mg/dl Est Cr Clr Drug Dosing 31.2 ml/min Est GFR ( Amer) 45.1 ml/min Est GFR (Non-Af Amer) 38.9 ml/min BUN/Creatinine Ratio 16.0 (10-20) Glucose 93 (70-99(Fasting)) mg/dl Calcium 10.3 (8.6-10.3) mg/dl Magnesium 1.7 (1.7-2.4) mg/dl Total Bilirubin 0.9 (0.2-1.0) mg/dl AST 15 (13-39) U/L ALT 7 (7-52) U/L Alkaline Phosphatase 51 (34-104) U/L Troponin I High Sens 14.8 H 14.6 H (0-14) pg/ml B-Natriuretic Peptide 274 H (0-100) pg/ml Total Protein 7.5 (6.0-8.3) gm/dl Albumin 4.2 (3.4-5.0) gm/dl Globulin 3.3 (2.5-4.0) gm/dl Albumin/Globulin Ratio 1.3 (0.9-2) Urine Color Yellow Urine Appearance Cloudy A (Clear) Urine pH 8.5 H (4.5-7.5) Ur Specific [place] 1.011 (1.000-1.030) Urine Protein Negative (Negative) Urine Glucose (UA) Negative (Negative) Urine Ketones Trace H (Negative) Urine Blood Negative (Negative) Urine Nitrite Positive A (Negative) Urine Bilirubin Negative (Negative) Urine Urobilinogen Negative (Negative) Ur Leukocyte Esterase 3+ H (Negative) Urine WBC (Auto) >50 H (0-5) /hpf Urine RBC (Auto) 0-2 (0-2) /hpf U Hyaline Cast (Auto) 0-2 (0-2) /lpf U Epithel Cells (Auto) 0-2 (0-2) /hpf Urine Bacteria (Auto) 4+ H (None Seen) Adenovirus (PCR) Not Detected (NotDetected) B. pertussis DNA (PCR) Not Detected (NotDetected) B.parapertussis DNA PCR Not Detected (NotDetected) C. pneumoniae DNA (PCR) Not Detected (NotDetected) Coronavirus OC43 (PCR) Not Detected (NotDetected) Coronavirus HKU1 (PCR) Not Detected (NotDetected) Coronavirus 229E (PCR) Not Detected (NotDetected) SARS-CoV-2 (PCR) Not Detected (NotDetected) Coronavirus NL63 (PCR) Not Detected (NotDetected) Human Metapneumovir PCR Not Detected (NotDetected) Influenza Type A (PCR) Not Detected (NotDetected) Influenza Type B (PCR) Not Detected (NotDetected) M. pneumoniae (PCR) Not Detected (NotDetected) Parainfluenza 1 (PCR) Not Detected (NotDetected) Parainfluenza 2 (PCR) Not Detected (NotDetected) Parainfluenza 3 (PCR) Not Detected (NotDetected) Parainfluenza 4 (PCR) Not Detected (NotDetected) RSV (PCR) Not Detected (NotDetected) Entero/Rhino (PCR) Not Detected (NotDetected) Administered Medications Discontinued Medications Ceftriaxone Sodium (Rocephin) 2,000 mg in 50 mls @ 100 mls/hr IV NOW STA Stop: 11/03/23 19:31 Last Infusion: 11/03/23 20:34 Dose: Infused Documented By: Admin: 11/03/23 19:52 Dose: 100 mls/hr Documented By: SUHA Acetaminophen (Ofirmev) 1,000 mg in 100 mls @ 400 mls/hr IV NOW STA Stop: 11/03/23 20:19 Last Infusion: 11/03/23 20:53 Dose: Infused Documented By: Admin: 11/03/23 20:11 Dose: 400 mls/hr Documented By: SUHA Ioversol (Optiray 320 125ml) 118 ml IV ONCE ONE Stop: 11/03/23 19:27 Last Admin: 11/03/23 19:30 Dose: 118 ml Documented By: GAYLE Labetalol HCl (Labetalol Hcl Iv 5 Mg/Ml 20ml) 5 mg IV NOW STA Stop: 11/03/23 20:28 Last Admin: 11/03/23 20:51 Dose: 5 mg Documented By: SUHA Imaging Data Radiologist's Impression: Chest X-Ray 11/03/23 17:38 XR chest 1V portable CLINICAL HISTORY: Dyspnea TECHNIQUE: Single frontal radiograph of the chest was obtained. Comparison: Comparison is made to rib series 03/14/2023 FINDINGS: Bilateral shoulder arthroplasties again noted. Cardiomegaly is noted. The aortic arch is calcified. The lungs are clear. No evidence of pleural effusion or pneumothorax. IMPRESSION: No acute chest disease. Cardiomegaly is noted. ACT 112: Negative or not required by law. Electronically signed by: Heath Rockwell M.D. 11/03/2023 7:08 PM Chest CTA 11/03/23 18:38 CT angio chest PE protocol CLINICAL HISTORY: PE TECHNIQUE: Multidetector row helical CT of the chest was performed with angiographic protocol. Coronal and sagittal reformations were obtained. Coronal and sagittal MIPS were obtained from the axial data set and were submitted for review. Automated dose lowering techniques and/or adjustment according to patient size were utilized for this exam. CT DOSE: 515.65 mGy.cm Comparison: Comparison is made to CT chest 03/11/2023 FINDINGS: Lungs and pleura: Atelectasis versus scarring is seen in the dependent portions of the lungs. There is a right pleural-based nodule measuring 12 mm with surrounding atelectasis, unchanged, as well as a stable 3 mm nodule in the right middle lobe (series 4 image 57). Heart and pericardium: Cardiomegaly is seen with biatrial enlargement. Vessels: No evidence of pulmonary embolism. Mediastinum and caryn: Unremarkable. Chest wall and lower neck: Unremarkable. Abdomen: A moderate hiatal hernia is seen. Bones: Degenerative changes in the thoracic spine. 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 IMPRESSION: 1. No acute abnormality and in particular no evidence of pulmonary embolus. 2. Stable pulmonary nodules as above. 3. Hepatomegaly with biatrial enlargement. 4. Additional findings as above. ACT 112: Negative or not required by law. Electronically signed by: Heath Rockwell M.D. 11/03/2023 7:50 PM Discharge Plan Visit Data Chief Complaint: Shortness of Breath/Dyspnea Stated Complaint: SOB ED Provider: Avel Santiago Discharge Problem: SOB (shortness of breath), Weakness, Acute UTI, Elevated troponin Patient Disposition: Admitted As Inpatient Condition: Fair Forms Stand Alone Forms: My [facility] Prescriptions Prescriptions: No Action torsemide 20 mg tablet 20 mg PO DAILY PRN (Reason: Edema) metoprolol succinate 50 mg tablet extended release 24 hr 50 mg PO DAILY levothyroxine 100 mcg tablet 100 mcg PO DAILY benzonatate 100 mg capsule 100 mg PO TID PRN (Reason: Cough) pantoprazole 40 mg tablet,delayed release (DR/EC) 40 mg PO BID trazodone 150 mg tablet 150 mg PO HS buspirone 10 mg tablet 10 mg PO BID losartan 25 mg tablet 25 mg PO DAILY gabapentin 300 mg capsule 300 mg PO TID hydroxyzine HCl 10 mg tablet 10 mg PO TID PRN (Reason: Anxiety) calcitriol 0.25 mcg capsule 0.25 mcg PO UD Rx Instructions: on sun, sun and sunday rosuvastatin 10 mg tablet 10 mg PO HS Eliquis 5 mg tablet 5 mg PO BID Referrals Referrals: PCP,NO [Physician] -
--- OUTSIDE RECORDS SUMMARY | 2023-11-03 17:41 | External Medical Summary | Summary of Care ---
Author Name Unknown Organization [facility] Address [address] [place] [address] Phone [phone] Care Team Providers Care Karate Black Belt Name Role Phone Gilbert Calloway MD Primary Care Provide r Reason for Visit * Reason Onset Date Comments [facility]: Maintenance 06/12/2023 Encounter Details Date Type Department Care Team (Late st Contact Info) Description 06/12/2023 Telephone [facility], [facility] [address] [place] [facility] [place] [address] [facility], Nurse [facility] [address] [place], [place] [phone] [facility]: Maintenance Allergies Active Allergy Reactions Criticality Noted Date Comments Ergotamine 03/01/2000 vomit Nitroglycerin 03/14/2007 vomitting documented as of this encounter (statuses as of 06/12/2023) Medications Medication Sig Dispensed Refills Start Date [...] 2 days 30 Tablet 0 05/29/2023 Active documented as of this encounter (statuses as of 06/12/2023) Active Problems Problem Noted Date Diagnosed Date [...] [place] on apixaban Last Assessment & Plan: Her [...] as of this encounter (statuses as of 06/12/2023) Resolved Problems Problem Noted Date Diagnosed Date [...] as of this encounter (statuses as of 06/12/2023) Immunizations Name Administration Dates Next Due COVID-19 [...] Telephone Encounter - Elsy Harris LPN - 06/12/2023 12:49 PM EDT Call to pt relayed instructions from Dr Doss Pt is agreeable to same F/u calls scheduled * Telephone Encounter - Avel Doss MD - 06/12/2023 9:53 AM EDT Noted. Reasonable to take torsemide for three days in a row. E * Telephone Encounter - Elsy Harris LPN - 06/12/2023 9:34 AM EDT Images from the original note were not included. [facility] Remote Patient Monitoring Able to contact patient: Trigger type: Abnormal reading(s): [facility] (Advanced Monitored Caregiving): Scale: Baseline weight: 157 lbs Trigger weight: 166.2 lbs; weight increased 606 lbs in 10 day(s) Trigger priority per [facility]C: high Patient takes diuretic medication: No Symptom review: Edema: ankles SOB: increase SOB today Diet Reviewed: Yes. Patient has had any foods high in sodium: Yes, describe: canned soup Fluid Intake Reviewed: 2 L. Pt adhering to fluid restriction Self-Management Plan Reviewed: Risk assignment recommendation: Moderate risk findings (check [...] 90 WITH symptoms Additional risk selection justification: [facility] trigger for weight gain of 6.6 lbs in 10 days Call to pt reports a little more SOB today, not on O2, + edema in ankles Denies CP, -cough, -ABD distention Pt reports she doesn't take a diuretic on a daily bases but took one 20 mg torsemide today Pt reports she hasn't been watching her sodium intake, has had canned soup the past 2 days. Reports she has been eating late at night Pt states she will watch more closely now. F/u call scheduled for tomorrow Will continue to monitor Overall risk and identified plan: High risk: Next day follow up call scheduled Route to RNCM (Registered Nurse Right Of Way Man) and Advance Practitioner Route to RMC (Remote Medical Coordinator) documented in this encounter Plan of Treatment Upcoming Encounters Date Type Department Care Team (Late st Contact Info) Description 06/13/2023 11:00 AM EDT Scheduled Telephone [facility], [facility] [address] [place] [place] [address] Coordinator, [facility] [address] [place] [phone] 06/14/2023 11:15 AM EDT Scheduled Telephone [facility], [facility] [address] [address] Coordinator, [facility] [address] [place] [place] [address] 06/20/2023 4:00 PM EDT Home Visit [facility], [facility] [address] [place] [address] Lana Lieberman, KHARI [address] [address] 10/12/2023 10:40 AM EDT Office Visit Family Medicine [address] [phone] Gilbert Calloway MD [address] [place] [address] [place] [address] Health Maintenance Due Date Last Done Comments DTaP,Tdap,and Td Vaccines (1 - Tdap) 11/15/1957 COVID-19 Vaccine (5 - 2022- season) 2022 04/19/2020, 04/04/2020, 03/22/2020, Additional history exists Albumin/Creatinine Ratio 07/28/2023 023, 06/09/2020, 03/13/2019, Additional history exists TSH 07/28/2023 07/27/2022, 05/21, 06/09/2020, Additional history exists CKD PHOS USE SMARTSET 70818 10/05/202309/19, 06/08/2021, 09/07/2020, Additional history exists Influenza Vaccine (FLU shot) (Season Ended) 2023 01/10/2022, 11/18/2020, 12/06/2019, Additional history exists CKD HGB USE SMARTSET 76717 03/06/202403/06, 03/06/2023, 10/04/2022, Additional history exists Pneumococcal [...] filedocumented as of this encounter Care Teams Karate Black Belt Relationship Specialty Start Date End Date Gilbert Calloway MD [address] [place] [address] [address] [place] [address] PCP - General Family Medicine 04/11/23 documented as of this encounter
--- OUTSIDE RECORDS SUMMARY | 2023-11-03 17:41 | External Medical Summary | Summary of Care ---
Author Name Unknown Organization [facility] Address [address] [facility] [place] [address] Phone [phone] Care Team Providers Care Bridge Engineer Name Role Phone Gilbert Calloway MD Primary Care Provide r Reason for Visit * Reason Onset Date Comments [facility]: Maintenance 06/13/2023 Encounter Details Date Type Department Care Team (Late st Contact Info) Description 06/13/2023 11:00 AM EDT Scheduled Telephone [facility], [facility] [address] [facility] [place] [address] Coordinator, [facility] [address] [facility] [place] [address] Allergies Active Allergy Reactions Criticality Noted Date Comments Ergotamine 03/01/2000 vomit Nitroglycerin 03/14/2007 vomitting documented as of this encounter (statuses as of 06/13/2023) Medications Medication Sig Dispensed Refills Start Date [...] as of this encounter (statuses as of 06/13/2023) Active Problems Problem Noted Date Diagnosed Date [...] replacement status 09/09/2002 Atherosclerosis of [place] co ronary artery of [place] heart without angina pectoris Last Assessment & Plan: Stable no angina -continue rosuvastatin, metopropolol, Anxiety state Last Assessment & Plan: Stable on buspar, Primary hypertension Gastroesophageal reflux dise ase with esophagitis without hemorrhage Last Assessment & Plan: symptoms controlled on pantoprazole Scoliosis of lumbar spine Mixed incontinence urge and stress (male)(female ) documented as of this encounter (statuses as of 06/13/2023) Resolved Problems Problem Noted Date Diagnosed Date [...] as of this encounter (statuses as of 06/13/2023) Immunizations Name Administration Dates Next Due COVID-19 [...] Miscellaneous Notes * Telephone Encounter - Shelby Arroyo, FARIDEH - 06/13/2023 9:52 AM EDT Images from the original note were not included. [facility] Telephonic Nurse Follow-Up Call [facility] Subprogram: Short-Term Management (less than 3 months) Follow Up Call Type: 24 hour follow up Acute issue requiring follow-up call: Other: DTP Objective: 05/29/2023 3:07 PM 05/16/2023 11:54 AM 04/11/2023 11:01 AM 04/09/2023 4:00 PM 04/04/2023 11:37 AM VITALS ACROSS ENCOUNTERS BP 100/58 142/72 128/82 118/72 146/86 Pulse 78 64 60 88 80 Weight 71.3 kg 72.1 kg 72.1 kg 71.9 kg BMI 30.06 BMI 29.69 kg/m2 30.04 kg/m2 30.04 kg/m2 29.97 kg/m2 Remote Patient Monitoring: AMC Scale: daily weights Oxygen Needs: NO supplemental oxygen needs identified DME Needs: NO DME needs identified Medications: Current DTP: Other: Torsemide 20mg x 3 days Subjective: Condition Status: No change in symptoms Current Concerns: Spoke to patient edema is about the same in ankles denies increased SOB and last BM last night encouraged to watch her salt/sodium intake and to call with any issues Disposition: Follow up call scheduled for tomorrow with FARIDEH [employer] Future Visits Scheduled: Future Appointments-next 60 days Date/Time Provider Specialty Dept Phone 06/13/2023 11:00 AM [facility] [phone] 06/14/2023 11:15 AM [facility] [phone] 06/20/2023 4:00 PM Lana Lieberman RN [facility] [phone] 10/12/2023 10:40 AM (Arrive by 10:25 AM) Gilbert Calloway MD Family Medicine [phone] Shelby Arroyo LPN documented in this encounter Plan of Treatment Upcoming Encounters Date Type Department Care Team (Late st Contact Info) Description 06/14/2023 11:15 AM EDT Scheduled Telephone [facility] [place], [facility] [address] [place] [address] Coordinator, Ivan Garner [address] [place] [address] 06/20/2023 4:00 PM EDT Home Visit [facility] [place], [facility] [address] [place] [address] Lana Lieberman, RN [address] [place] [place] [address] 10/12/2023 10:40 AM EDT Office Visit Family [address] [place] [phone] Gilbert Calloway MD [address] [place] [address] [place] [address] Health Maintenance Due Date Last Done Comments DTaP,Tdap,and Td Vaccines (1 - Tdap) 11/15/1957 COVID-19 Vaccine (5 - 2022- season) 2022 04/19/2020, 04/04/2020, 03/22/2020, Additional history exists Albumin/Creatinine Ratio 07/28/2023 023, 06/09/2020, 03/13/2019, Additional history exists TSH 07/28/2023 07/27/2022, 05/21, 06/09/2020, Additional history exists CKD PHOS USE SMARTSET 89787 10/05/202309/19, 06/08/2021, 09/07/2020, Additional history exists Influenza Vaccine (FLU shot) (Season Ended) 2023 01/10/2022, 11/18/2020, 12/06/2019, Additional history exists CKD HGB USE SMARTSET 04610 03/06/202403/06, 03/06/2023, 10/04/2022, Additional history exists Pneumococcal [...] filedocumented as of this encounter Care Teams Bridge Engineer Relationship Specialty Start Date End Date Gilbert Calloway MD [address] [place] [address] [place] [phone] PCP - General Family Medicine 04/11/23 documented as of this encounter
--- OUTSIDE RECORDS SUMMARY | 2023-11-03 17:41 | External Medical Summary | Summary of Care ---
Author Name Unknown Organization [facility] Address [address] [place] [address] Phone [phone] Care Team Providers Care Director Of Design Name Role Phone Gilbert Calloway MD Primary Care Provide r Reason for Visit * Reason Onset Date Comments [facility]: Maintenance 06/12/2023 Encounter Details Date Type Department Care Team (Late st Contact Info) Description 06/12/2023 Telephone [facility], [facility] [address] [place] [facility] [place] [address] [facility], Nurse [facility] [address] [place], [place] [phone] [facility]: Maintenance Allergies Active Allergy [...] discuss her pain concerns. She is aware [facility] does not manage chronic pain meds. 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 Reasonable to take torsemide for three days in a row. E * Telephone Encounter - Elsy Harris LPN - 06/12/2023 9:34 AM EDT Images from the original note were not included. [facility] Remote Patient Monitoring Able to contact patient: Trigger type: Abnormal reading(s): [facility] (Advanced Monitored Caregiving): Scale: Baseline weight: 157 lbs Trigger weight: 166.2 lbs; weight increased 606 lbs in 10 day(s) Trigger priority per [facility]: high Patient takes diuretic medication: No Symptom review: Edema: ankles SOB: increase SOB today Diet Reviewed: Yes. Patient has had any foods high in sodium: Yes, describe: canned soup Fluid Intake Reviewed: 2 L. Pt adhering to fluid restriction Self-Management Plan Reviewed: Risk assignment recommendation: Moderate risk findings (check as applicable): [] Moderate trigger priority on [facility] [] Confirmed tympanic equivalent temperature 100.4-101.9 F [...] as applicable): [] High trigger priority on [facility] [] Confirmed tympanic equivalent temperature greater than [...] 90 WITH symptoms Additional risk selection justification: [facility] trigger for weight gain of [...] call scheduled Route to RNCM (Registered Nurse Editor [employer]) and Advance Practitioner Route to RMC (Remote Medical Coordinator) documented in this encounter Plan of Treatment Upcoming Encounters Date Type Department Care Team (Late st Contact Info) Description 06/20/2023 4:00 PM EDT Home Visit [facility] [address] [place] [address] Lana Lieberman RN [address] [place] [address] 10/12/2023 10:40 AM EDT Office Visit Family Medicine [address] [place] [phone] Gilbert Calloway MD [address] [place] [address] [place] [address] Health Maintenance Due Date Last Done Comments DTaP,Tdap,and Td Vaccines (1 - Tdap) 11[birth year]15/1957 COVID-19 Vaccine ( season) 2022 04/19/2020, 04/04/2020, 03/22/2020, Additional history exists Albumin/Creatinine Ratio 07/28/2023 023, 06/09/2020, 03/13/2019, Additional history exists TSH 07/28/2023 07/27/2022, 05/21, 06/09/2020, Additional history exists CKD PHOS USE SMARTSET 48716 10/05/2023 08/07/2022, 06/08/2021, 09/07/2020, Additional history exists Influenza Vaccine (FLU shot) (Season Ended) 2023 01/10/2022, 11/18/2020, 12/06/2019, Additional history exists CKD HGB USE SMARTSET 19122 03/06/202403/06, 03/06/2023, 10/04/2022, Additional history exists Pneumococcal [...] of this encounter Care Teams Director Of Design Relationship Specialty Start Date End Date Gilbert Calloway MD [address] [place] [address] [place] [phone] PCP - General Family Medicine 04/11/23 documented as of this encounter
--- OUTSIDE RECORDS SUMMARY | 2023-11-03 17:41 | External Medical Summary | Summary of Care ---
Author Name Unknown Organization [facility] Address [address] [place] [address] Phone [phone] Care Team Providers Care Wader Boot Top Assembler Name Role Phone Gilbert Calloway MD Primary Care Provide r Reason for Visit * Reason Onset Date Comments Appointment 06/15/2023 Encounter Details Date Type Department Care Team (Late st Contact Info) Description 06/15/2023 Telephone [facility] [place], [place] [address] [place] [address] Services, Scheduling [address] [place] [address] Appointment Allergies Active Allergy Reactions Criticality Noted Date Comments Ergotamine 03/01/2000 vomit Nitroglycerin 03/14/2007 vomitting documented as of this encounter (statuses as of 06/15/2023) Medications Medication Sig Dispensed Refills Start Date [...] as of this encounter (statuses as of 06/15/2023) Active Problems Problem Noted Date Diagnosed Date [...] atrial fibrillation 03/01/2021 Overview: new onset, [facility] on apixaban Last Assessment & Plan: Her 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[place] co ronary artery of [place] heart without angina pectoris Last Assessment & Plan: Stable no angina -continue rosuvastatin, metopropolol, Anxiety state Last Assessment & Plan: Stable on buspar, Primary hypertension Gastroesophageal reflux dise ase with esophagitis without hemorrhage Last Assessment & Plan: symptoms controlled on pantoprazole Scoliosis of lumbar spine Mixed incontinence urge and stress (male)(female ) documented as of this encounter (statuses as of 06/15/2023) Resolved Problems Problem Noted Date Diagnosed Date [...] 06/30/2014 06/26/2017 Overview: hgb 7.4 admitted [facility] CKD (chronic kidney disease) stage 3, GFR [...] as of this encounter (statuses as of 06/15/2023) Immunizations Name Administration Dates Next Due COVID-19 [...] encounter Miscellaneous Notes * Telephone Encounter - Franchesca Madison OSA - 06/15/2023 3:23 PM EDT Per request via TT to schedule f/u weekend calls for pt regarding swelling in ankles and feet. documented in this encounter Plan of Treatment Upcoming Encounters Date Type Department Care Team (Late st Contact Info) Description 06/16/2023 9:30 AM EDT Scheduled Telephone [facility], [facility] 132 [facility] [place] [address] [facility], Nurse [facility] [address] [facility] [place] [address] 06/17/2023 9:30 AM EDT Scheduled Telephone [facility], [facility] 132 [facility] [place] [address] [facility], Nurse [facility] [place] [address] 06/20/2023 4:00 PM EDT Home Visit [facility], [facility] 132 [facility] [place] [address] Lana Lieberman RN 132 [facility] [place] [address] 10/12/2023 10:40 AM EDT Office Visit [address] [place] [phone] Gilbert Calloway MD [address] [place] [address] [place] [address] Health Maintenance Due Date Last Done Comments DTaP,Tdap,and Td Vaccines (1 - Tdap) 11[birth year]15/1957 COVID-19 Vaccine (5 - 2022- season) 2022 04/19/2020, 04/04/2020, 03/22/2020, Additional history exists Albumin/Creatinine Ratio 07/28/2023 023, 06/09/2020, 03/13/2019, Additional history exists TSH 07/28/2023 07/27/2022, 05/21, 06/09/2020, Additional history exists CKD PHOS USE SMARTSET 30511 10/05/202309/19, 06/08/2021, 09/07/2020, Additional history exists Influenza Vaccine (FLU shot) (Season Ended) 2023 01/10/2022, 11/18/2020, 12/06/2019, Additional history exists CKD HGB USE SMARTSET 37639 03/06/202403/06, 03/06/2023, 10/04/2022, Additional history exists Pneumococcal [...] filedocumented as of this encounter Care Teams Wader Boot Top Assembler Relationship Specialty Start Date End Date Gilbert Calloway MD [address] [place] [address] [place] [phone] PCP - General Family Medicine 04/11/23 documented as of this encounter
--- OUTSIDE RECORDS SUMMARY | 2023-11-03 17:41 | External Medical Summary | Summary of Care ---
Author Name Unknown Organization [facility] Address [address] [facility] [place] [address] Phone [phone] Care Team Providers Care Medicaid Billing Clerk Name Role Phone Gilbert Calloway MD Primary Care Provide r Reason for Visit * Reason Onset Date Comments [facility]: Maintenance 06/17/2023 Encounter Details Date Type Department Care Team (Late st Contact Info) Description 06/17/2023 9:30 AM EDT Scheduled Telephone [facility], [facility] [address] [facility] [place] [address] [facility], Nurse [facility] [address] [facility] [place] [address] Allergies Active Allergy Reactions Criticality Noted Date [...] as needed (swelling, wt gain>2 lbs). 0 Active documented as of this encounter [...] Chronic atrial fibrillation 03/01/2021 Overview: new onset, [facility] on apixaban Last Assessment & [...] ulcer 06/30/2014 06/26/2017 Overview: hgb 7.4 admitted [facility] CKD (chronic kidney disease) stage [...] encounter Miscellaneous Notes * Telephone Encounter - Hellen Sherman RN - 06/17/2023 11:36 AM EDT Call placed to f/u on ankle/feet swelling. Pt answered the phone and identified self by name and . Pt reports that yesterday her feet were as swollen as "footballs". Pt reports that she was instructed to take Torsemide 20 mg 1 tab x 3 daysfor increased swelling. Pt takes Torsemide PRN. Pt reports that she only had 1 tab remaining so shewas unable to complete DTP. Pt reports that she planned to call for a refill tomorrow. Pt reports that her pharmacy is open till 3 PM today and she would be able to get medication if ordered. Encouraged pt to elevate feet/legs as able. Telephone encounter and TT sent to [facility] coke production heater Dr. Mckenzie to request refill of Torsemide be sent to pt's pharmacy. Pt will tow picker medication and take DTP x 3 days. F/u PC scheduled to 06/18/23. Reinforced to call [facility] with any concerns or worsening symptoms. documented in this encounter Plan of Treatment Upcoming Encounters Date Type Department Care Team (Late st Contact Info) Description 06/18/2023 10:15 AM EDT Scheduled Telephone [facility], [facility] [address] [place] [address] Coordinator, [facility] [address] [place] [address] 06/20/2023 4:00 PM EDT Home Visit [facility] [place], [facility] [address] [place] [address] Lana Lieberman, KHARI 132 [facility] [place] [address] 10/12/2023 10:40 AM EDT Office Visit Family Medicine [address] [place] [phone] Gilbert Calloway MD [address] [place] [address] [place] [address] Health Maintenance Due Date Last Done Comments DTaP,Tdap,and Td Vaccines (1 - Tdap) 11[birth year]15/1957 COVID-19 Vaccine (2022-24 season) 2022 04/19/2020, 04/04/2020, 03/22/2020, Additional history exists Albumin/Creatinine Ratio 07/28/2023 023, 06/09/2020, 03/13/2019, Additional history exists TSH 07/28/2023 07/27/2022, 05/21, 06/09/2020, Additional history exists CKD PHOS USE SMARTSET 38155 10/05/202309/19, 06/08/2021, 09/07/2020, Additional history exists Influenza Vaccine (FLU shot) (Season Ended) 2023 01/10/2022, 11/18/2020, 12/06/2019, Additional history exists CKD HGB USE SMARTSET 21109 03/06/202403/06, 03/06/2023, 10/04/2022, Additional history exists Pneumococcal [...] filedocumented as of this encounter Care Teams Medicaid Billing Clerk Relationship Specialty Start Date End Date Gilbert Calloway MD [address] [place] [address] [place] [phone] PCP - General Family Medicine 04/11/23 documented as of this encounter
--- OUTSIDE RECORDS SUMMARY | 2023-11-03 17:41 | External Medical Summary | Summary of Care ---
Author Name Unknown Organization [facility] Address [address] [place] [address] Phone [phone] Care Team Providers Care Family Development Specialist Name Role Phone Gilbert Calloway MD Primary Care Provide r Reason for Visit * Reason Onset Date Comments [facility]: Maintenance 06/12/2023 Encounter Details Date Type Department Care Team (Late st Contact Info) Description 06/12/2023 Telephone [facility], [facility] [address] [place] [address] [facility], Nurse [facility] [address], [place] [phone] [facility]: Maintenance Allergies Active Allergy [...] discuss her pain concerns. She is aware [facility] does not manage chronic pain meds. With her history of confusion, would recommend against use of narcotic medication. Mild aortic stenosis 07/27/2021 Last Assessment & Plan: Following with cardiology Aortocoronary bypass status 03/09/2021 Chronic atrial fibrillation 03/01/2021 Overview: new onset, [facility] on apixaban Last Assessment & Plan: Her [...] 06/30/2014 06/26/2017 Overview: hgb 7.4 admitted [facility] CKD (chronic kidney disease) stage 3, GFR [...] 90 WITH symptoms Additional risk selection justification: [facility] trigger for weight gain of 6.6 lbs [...] call scheduled Route to RNCM (Registered Nurse Geothermal Hvac Technician) and Advance Practitioner Route to RMC (Remote Medical Coordinator) documented in this encounter Plan of Treatment Upcoming Encounters Date Type Department Care Team (Late st Contact Info) Description 06/13/2023 11:00 AM EDT Scheduled Telephone [facility], [facility] [address] [place] [address] Coordinator, [facility] [address] [place] [address] 06/14/2023 11:15 AM EDT Scheduled Telephone [facility], [facility] [address] [place] [address] Coordinator, [facility] [address] [place] [address] 06/20/2023 4:00 PM EDT Home Visit [facility], [facility] [address] [place] [address] Lana Lieberman, KHARI [address] [place] [address] 10/12/2023 10:40 AM EDT Office Visit Family Medicine [address] [place] [phone] Gilbert Calloway MD [address] [place] [address] [place] [phone] Health Maintenance Due Date Last Done Comments DTaP,Tdap,and Td Vaccines (1 - Tdap) 11/15/1957 COVID-19 Vaccine (5 - 2022- season) 2022 04/19/2020, 04/04/2020, 03/22/2020, Additional history exists Albumin/Creatinine Ratio 07/28/2023 023, 06/09/2020, 03/13/2019, Additional history exists TSH 07/28/2023 07/27/2022, 05/21, 06/09/2020, Additional history exists CKD PHOS USE SMARTSET 32847 10/05/202309/19, 06/08/2021, 09/07/2020, Additional history exists Influenza Vaccine (FLU shot) (Season Ended) 2023 01/10/2022, 11/18/2020, 12/06/2019, Additional history exists CKD HGB USE SMARTSET 50692 03/06/202403/06, 03/06/2023, 10/04/2022, Additional history exists Pneumococcal [...] filedocumented as of this encounter Care Teams Family Development Specialist Relationship Specialty Start Date End Date Gilbert Calloway MD [address] [place] [address] [place] [phone] PCP - General Family Medicine 04/11/23 documented as of this encounter
--- OUTSIDE RECORDS SUMMARY | 2023-11-03 17:41 | External Medical Summary | Summary of Care ---
Author Name Unknown Organization [facility] Address [address] [place] [address] Phone [phone] Care Team Providers Care Plastic Cablemaking Machine Operator Name Role Phone Gilbert Calloway MD Primary Care Provide r Reason for Visit * Reason Onset Date Comments [facility]: Maintenance 06/12/2023 Encounter Details Date Type Department Care Team (Late st Contact Info) Description 06/12/2023 Telephone [facility], [facility] [address] [place] [facility] [place] [place] [address] [facility], Nurse [facility] [address] [place], [place] [phone] [facility]: Maintenance Allergies Active Allergy [...] joint replacement status 09/09/2002 Atherosclerosis of [place] co ronary artery of [place] heart without angina pectoris Last Assessment & [...] 90 WITH symptoms Additional risk selection justification: [facility] trigger for weight gain of [...] call scheduled Route to RNCM (Registered Nurse Catalyst Manufacturing Operator) and Advance Practitioner Route to RMC (Remote Medical Coordinator) documented in this encounter Plan of Treatment Upcoming Encounters Date Type Department Care Team (Late st Contact Info) Description 06/13/2023 11:00 AM EDT Scheduled Telephone [facility], [facility] [address] [place] [address] Coordinator, [facility] [address] [place] [address] 06/14/2023 11:15 AM EDT Scheduled Telephone [facility], [facility] [address] [place] [address] Coordinator, [facility] [address] [place] [address] 06/20/2023 4:00 PM EDT Home Visit [facility], [facility] [address] [place] [address] Lana Lieberman, KHARI [address] [place] [place] [address] 10/12/2023 10:40 AM EDT Office Visit Family Medicine [address] [place] [phone] Gilbert Calloway MD [address] [place] [address] [place] [address] Health Maintenance Due Date Last Done Comments DTaP,Tdap,and Td Vaccines (1 - Tdap) 11/15/1957 COVID-19 Vaccine (5 - 2022- season) 2022 04/19/2020, 04/04/2020, 03/22/2020, Additional history exists Albumin/Creatinine Ratio 07/28/2023 023, 06/09/2020, 03/13/2019, Additional history exists TSH 07/28/2023 07/27/2022, 05/21, 06/09/2020, Additional history exists CKD PHOS USE SMARTSET 90404 10/05/202309/19, 06/08/2021, 09/07/2020, Additional history exists Influenza Vaccine (FLU shot) (Season Ended) 2023 01/10/2022, 11/18/2020, 12/06/2019, Additional history exists CKD HGB USE SMARTSET 57386 03/06/202403/06, 03/06/2023, 10/04/2022, Additional history exists Pneumococcal [...] filedocumented as of this encounter Care Teams Plastic Cablemaking Machine Operator Relationship Specialty Start Date End Date Gilbert Calloway MD [address] [place] [address] [place] [phone] PCP - General Family Medicine 04/11/23 documented as of this encounter
--- OUTSIDE RECORDS SUMMARY | 2023-11-03 17:41 | External Medical Summary | Summary of Care ---
Author Name Unknown Organization [facility] Address [address] [place] [address] Phone [phone] Care Team Providers Care Career Manager Name Role Phone Gilbert Calloway MD Primary Care Provide r Reason for Visit * Reason Onset Date Comments [facility]: Maintenance 06/12/2023 Encounter Details Date Type Department Care Team (Late st Contact Info) Description 06/12/2023 Telephone [facility], [facility] [address] [place] [facility] [place] [address] [facility], Nurse [facility] [address] [place], [place] [phone] [facility]: Maintenance Allergies Active Allergy [...] discuss her pain concerns. She is aware [facility] does not manage chronic pain meds. [...] WITH symptoms Additional risk selection justification: [facility] [place] for weight gain of 6.6 lbs [...] call scheduled Route to RNCM (Registered Nurse Nozzle Cement Sprayer Helper) and Advance Practitioner Route to RMC (Remote Medical Coordinator) documented in this encounter Plan of Treatment Upcoming Encounters Date Type Department Care Team (Late st Contact Info) Description 06/13/2023 11:00 AM EDT Scheduled Telephone [facility], [facility] [address] [place] [phone] Coordinator, [facility] [address] [place] [phone] 06/14/2023 11:15 AM EDT Scheduled Telephone [facility], [facility] [address] [place] [address] Coordinator, [facility] [address] [place] [phone] 06/20/2023 4:00 PM EDT Home Visit [facility], [facility] [address] [address] Lana Lieberman, KHARI [address] [place] [address] 10/12/2023 10:40 AM EDT Office Visit Family Medicine [address] [place] [phone] Gilbert Calloway MD [address] [place] [address] [place] [phone] Health Maintenance Due Date Last Done Comments DTaP,Tdap,and Td Vaccines (1 - Tdap) 11/15/1957 COVID-19 Vaccine (5 - 2022- season) 2022 04/19/2020, 04/04/2020, 03/22/2020, Additional history exists Albumin/Creatinine Ratio 07/28/2023 023, 06/09/2020, 03/13/2019, Additional history exists TSH 07/28/2023 07/27/2022, 05/21, 06/09/2020, Additional history exists CKD PHOS USE SMARTSET 25899 10/05/202309/19, 06/08/2021, 09/07/2020, Additional history exists Influenza Vaccine (FLU shot) (Season Ended) 2023 01/10/2022, 11/18/2020, 12/06/2019, Additional history exists CKD HGB USE SMARTSET 93605 03/06/202403/06, 03/06/2023, 10/04/2022, Additional history exists Pneumococcal [...] as of this encounter Care Teams Career Manager Relationship Specialty Start Date End Date Gilbert Calloway MD [address] [place] [address] [place] [place] [phone] PCP - General Family Medicine 04/11/23 documented as of this encounter
--- OUTSIDE RECORDS SUMMARY | 2023-11-03 17:41 | External Medical Summary | Summary of Care ---
Author Name Unknown Organization [facility] Address [address] [place] [address] Phone [phone] Care Team Providers Care Water Filter Cleaner Name Role Phone Gilbert Calloway MD Primary Care Provide r Reason for Visit * Reason Onset Date Comments [facility]: Maintenance 06/12/2023 Encounter Details Date Type Department Care Team (Late st Contact Info) Description 06/12/2023 Telephone [facility], [facility] [address] [place] [facility] [place] [address] [facility], Nurse [facility] [address] [place], [place] [phone] [facility]: Maintenance Allergies Active Allergy 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[place] ronary artery of [place] heart without angina pectoris Last Assessment & [...] to contact patient: Trigger type: Abnormal reading(s): [facility] (Advanced Monitored Caregiving): Scale: Baseline weight: 157 lbs Trigger weight: 166.2 lbs; weight increased 606 lbs in 10 day(s) Trigger priority per [facility]: high Patient takes diuretic medication: No Symptom review: Edema: ankles SOB: increase SOB today Diet Reviewed: Yes. Patient has had any foods high in sodium: Yes, describe: canned soup Fluid Intake Reviewed: 2 L. Pt adhering to fluid restriction Self-Management Plan Reviewed: Risk assignment recommendation: Moderate risk findings (check as applicable): [] Moderate trigger priority on [facility] [] Confirmed tympanic equivalent temperature 100.4-101.9 F [...] as applicable): [] High trigger priority on [facility] [] Confirmed tympanic equivalent temperature greater than [...] 90 WITH symptoms Additional risk selection justification: [facility] trigger for weight gain of 6.6 lbs [...] call scheduled Route to RNCM (Registered Nurse Beadworker) and Advance Practitioner Route to RMC (Remote Medical Coordinator) documented in this encounter Plan of Treatment Upcoming Encounters Date Type Department Care Team (Late st Contact Info) Description 06/20/2023 4:00 PM EDT Home Visit [facility] [address] [place] [address] Lana Lieberman RN [address] [place] [address] 10/12/2023 10:40 AM EDT Office Visit Family Medicine [address] [place] [phone] Gilbert Calloway MD [address] [place] [address] [place] [place] [phone] Health Maintenance Due Date Last Done Comments DTaP,Tdap,and Td Vaccines (1 - Tdap) 11/15/1957 COVID-19 Vaccine ( season) 2022 04/19/2020, 04/04/2020, 03/22/2020, Additional history exists Albumin/Creatinine Ratio 07/28/2023 023, 06/09/2020, 03/13/2019, Additional history exists TSH 07/28/2023 07/27/2022, 05/21, 06/09/2020, Additional history exists CKD PHOS USE SMARTSET 24774 10/05/2023 08/07/2022, 06/08/2021, 09/07/2020, Additional history exists Influenza Vaccine (FLU shot) (Season Ended) 2023 01/10/2022, 11/18/2020, 12/06/2019, Additional history exists CKD HGB USE SMARTSET 87767 03/06/202403/06, 03/06/2023, 10/04/2022, Additional history exists Pneumococcal [...] filedocumented as of this encounter Care Teams Water Filter Cleaner Relationship Specialty Start Date End Date Gilbert Calloway MD [address] [place] [address] [address] [phone] PCP - General Family Medicine 04/11/23 documented as of this encounter
--- OUTSIDE RECORDS SUMMARY | 2023-11-03 17:41 | External Medical Summary | Summary of Care ---
Author Name Unknown Organization [facility] Address [address] [facility] [place] [address] Phone [phone] Care Team Providers Care Hearing Therapy Director Name Role Phone Gilbert Calloway MD Primary Care Provide r Reason for Visit * Reason Onset Date Comments [facility]: Maintenance 06/16/2023 Encounter Details Date Type Department Care Team (Late st Contact Info) Description 06/16/2023 9:30 AM EDT Scheduled Telephone [facility], [facility] [address] [facility] [place] [place] [address] [facility], Nurse [facility] [address] [facility] [place] [address] Allergies Active Allergy Reactions Criticality Noted Date Comments Ergotamine 03/01/2000 vomit Nitroglycerin 03/14/2007 vomitting documented as of this encounter (statuses as of 06/16/2023) Medications Medication Sig Dispensed Refills Start Date [...] as of this encounter (statuses as of 06/16/2023) Active Problems Problem Noted Date Diagnosed Date [...] discuss her pain concerns. She is aware [facility] does not manage chronic pain meds. With her history of confusion, would recommend against use of narcotic medication. Mild aortic stenosis 07/27/2021 Last Assessment & Plan: Following with cardiology Aortocoronary bypass status 03/09/2021 Chronic atrial fibrillation 03/01/2021 Overview: new onset, [facility] on apixaban Last Assessment & 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[place] co ronary artery of [place] heart without angina pectoris Last Assessment & Plan: Stable no angina -continue rosuvastatin, metopropolol, Anxiety state Last Assessment & Plan: Stable on buspar, Primary hypertension Gastroesophageal reflux dise ase with esophagitis without hemorrhage Last Assessment & Plan: symptoms controlled on pantoprazole Scoliosis of lumbar spine Mixed incontinence urge and stress (male)(female ) documented as of this encounter (statuses as of 06/16/2023) Resolved Problems Problem Noted Date Diagnosed Date [...] ulcer 06/30/2014 06/26/2017 Overview: hgb 7.4 admitted [facility] CKD (chronic kidney disease) stage [...] as of this encounter (statuses as of 06/16/2023) Immunizations Name Administration Dates Next Due COVID-19 [...] Telephone Encounter - Maia Yao RN - 06/16/2023 10:04 AM EDT [facility] Telephonic Nurse Follow-Up Call [facility] Subprogram: Short-Term Management (less than 3 months) Follow Up Call Type: Weekend Call Acute issue requiring follow-up call: Other: swelling in feet Objective: 06/15/2023 2:05 PM 05/29/2023 3:07 PM 05/16/2023 11:54 AM 04/11/2023 11:01 AM 04/09/2023 4:00 PM VIT[facility] ACROSS ENCOUNTERS BP 115/50 100/58 142/72 128/82 118/72 Pulse 70 78 64 60 88 Weight 71.3 kg 72.1 kg 72.1 kg BMI 30.06 BMI 29.69 kg/m2 30.04 kg/m2 30.04 kg/m2 Remote Patient Monitoring: [facility] Scale: see below Oxygen Needs: NO supplemental oxygen needs identified DME Needs: NO DME needs identified Medications: New medication(s) added: added Torsemide 20 mg daily as needed for swellling, wt gain per patient report. Subjective: Condition Status: UTC-left vm requesting return call. Added for phone call tomorrow. Current Concerns: No [facility] reading yet today. Will await return call. Disposition: Weekend call scheduled Future Visits Scheduled: Future Appointments-next 60 days Date/Time Provider Specialty Dept Phone 06/17/2023 9:30 AM [facility], Nurse Ivan Johnson [facility] [phone] 06/20/2023 4:00 PM Lana Lieberman, RN [facility] [phone] 10/12/2023 10:40 AM (Arrive by 10:25 AM) Gilbert Calloway MD Family Medicine [phone] Maia Yao, RN documented in this encounter Plan of Treatment Upcoming Encounters Date Type Department Care Team (Late st Contact Info) Description 06/17/2023 9:30 AM EDT Scheduled Telephone [facility], [facility] [address] [place] [place] [address] [facility], Nurse [facility] [address] [place] [place] [address] 06/20/2023 4:00 PM EDT [facility] Visit [facility] [address] [address] Lana Lieberman, RN [address] [place], [place] [address] [place] [place] [address] 10/12/2023 10:40 AM EDT Office Visit Family Medicine [address] [place] [phone] Gilbert Calloway MD [address] [place] [address] [place] [place] [phone] Health Maintenance Due Date Last Done Comments DTaP,Tdap,and Td Vaccines (1 - Tdap) 11/15/1957 COVID-19 Vaccine (5 - 2022- season) 2022 04/19/2020, 04/04/2020, 03/22/2020, Additional history exists Albumin/Creatinine Ratio 07/28/2023 023, 06/09/2020, 03/13/2019, Additional history exists TSH 07/28/2023 07/27/2022, 05/21, 06/09/2020, Additional history exists CKD PHOS USE SMARTSET 32602 10/05/202309/19, 06/08/2021, 09/07/2020, Additional history exists Influenza Vaccine (FLU shot) (Season Ended) 2023 01/10/2022, 11/18/2020, 12/06/2019, Additional history exists CKD HGB USE SMARTSET 50904 03/06/202403/06, 03/06/2023, 10/04/2022, Additional history exists Pneumococcal [...] filedocumented as of this encounter Care Teams Hearing Therapy Director Relationship Specialty Start Date End Date Gilbert Calloway MD [address] [place] [address] [address] [place] [phone] PCP - General Family Medicine 04/11/23 documented as of this encounter
--- OUTSIDE RECORDS SUMMARY | 2023-11-03 17:41 | External Medical Summary | Summary of Care ---
Author Name Unknown Organization [facility] Address [address] [place] [address] Phone [phone] Care Team Providers Care Perinatal Director Name Role Phone Gilbert Calloway MD Primary Care Provide r Reason for Visit * Reason Onset Date Comments [facility]: Maintenance 06/12/2023 Encounter Details Date Type Department Care Team (Late st Contact Info) Description 06/12/2023 Telephone [facility], [facility] [address] [place] [facility] [place] [address] [facility], Nurse [facility] [address] [place], [place] [phone] [facility]: Maintenance Allergies Active Allergy [...] to contact patient: Trigger type: Abnormal reading(s): [facility] [place]Advanced Monitored Caregiving[place] Scale: Baseline weight: 157 lbs Trigger weight: 166.2 lbs; weight increased 606 lbs in 10 day(s) Trigger priority per [facility]: high Patient takes diuretic medication: No Symptom review: Edema: ankles SOB: increase SOB today Diet Reviewed: Yes. Patient has had any foods high in sodium: Yes, describe: canned soup Fluid Intake Reviewed: 2 L. Pt adhering to fluid restriction Self-Management Plan Reviewed: Risk assignment recommendation: Moderate risk findings (check as applicable): [] Moderate trigger priority on [facility] [] Confirmed tympanic equivalent temperature 100.4-101.9 F [...] as applicable): [] High trigger priority on [facility] [] Confirmed tympanic equivalent temperature greater than [...] Additional risk selection justification: [facility] trigger for weight gain of 6.6 lbs [...] call scheduled Route to RNCM (Registered Nurse Respiratory Care Program Director) and Advance Practitioner Route to RMC (Remote Medical Coordinator) documented in this encounter Plan of Treatment Upcoming Encounters Date Type Department Care Team (Late st Contact Info) Description 06/20/2023 4:00 PM EDT [facility] Visit [facility] [address] [place] [place] [address] Lana Lieberman RN [address] [place] [place] [address] 10/12/2023 10:40 AM EDT Office Visit Family Medicine [address] [place] [phone] Gilbert Calloway MD [address] [place] [address] [place] [place] [phone] Health Maintenance Due Date Last Done Comments DTaP,Tdap,and Td Vaccines (1 - Tdap) 11/15/1957 COVID-19 Vaccine ( season) 2022 04/19/2020, 04/04/2020, 03/22/2020, Additional history exists Albumin/Creatinine Ratio 07/28/2023 023, 06/09/2020, 03/13/2019, Additional history exists TSH 07/28/2023 07/27/2022, 05/21, 06/09/2020, Additional history exists CKD PHOS USE SMARTSET 70506 10/05/2023 08/07/2022, 06/08/2021, 09/07/2020, Additional history exists Influenza Vaccine (FLU shot) (Season Ended) 2023 01/10/2022, 11/18/2020, 12/06/2019, Additional history exists CKD HGB USE SMARTSET 75611 03/06/202403/06, 03/06/2023, 10/04/2022, Additional history exists Pneumococcal [...] filedocumented as of this encounter Care Teams Perinatal Director Relationship Specialty Start Date End Date Gilbert Calloway MD [address] [place] [address] [address] [place] [phone] PCP - General Family Medicine 04/11/23 documented as of this encounter
--- OUTSIDE RECORDS SUMMARY | 2023-11-03 17:41 | External Medical Summary | Summary of Care ---
Author Name Unknown Organization [facility] Address [address] [facility] [facility] [address] Phone [phone] Care Team Providers Care Mixer And Blender Name Role Phone Gilbert Calloway MD Primary Care Provide r Reason for Visit * Reason Onset Date Comments [facility]: Maintenance 06/14/2023 Encounter Details Date Type Department Care Team (Late st Contact Info) Description 06/14/2023 11:15 AM EDT Scheduled Telephone [facility], [facility] [address] [place] [address] Coordinator, [facility] [address] [facility] [place] [address] Allergies Active Allergy Reactions Criticality Noted Date Comments Ergotamine 03/01/2000 vomit Nitroglycerin 03/14/2007 vomitting documented as of this encounter (statuses as of 06/14/2023) Medications Medication Sig Dispensed Refills Start Date [...] as of this encounter (statuses as of 06/14/2023) Active Problems Problem Noted Date Diagnosed Date [...] discuss her pain concerns. She is aware [facility] does not manage chronic pain meds. 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[place] ronary artery of [place] heart without angina pectoris Last Assessment & Plan: Stable no angina -continue rosuvastatin, metopropolol, Anxiety state Last Assessment & Plan: Stable on buspar, Primary hypertension Gastroesophageal reflux dise ase with esophagitis without hemorrhage Last Assessment & Plan: symptoms controlled on pantoprazole Scoliosis of lumbar spine Mixed incontinence urge and stress (male)(female ) documented as of this encounter (statuses as of 06/14/2023) Resolved Problems Problem Noted Date Diagnosed Date [...] as of this encounter (statuses as of 06/14/2023) Immunizations Name Administration Dates Next Due COVID-19 [...] Telephone Encounter - Gila Escalera LPN - 06/14/2023 11:27 AM EDT Images from the original note were not included. [facility] Telephonic Nurse Follow-Up Call [facility] Subprogram: Short-Term Management (less than 3 months) Follow Up Call Type: Routine follow up call / Status Check Acute issue requiring follow-up call: Remote Patient Monitoring Trigger Objective: 05/29/2023 3:07 PM 05/16/2023 11:54 AM 04/11/2023 11:01 AM 04/09/2023 4:00 PM 04/04/2023 11:37 AM VITALS ACROSS ENCOUNTERS BP 100/58 142/72 128/82 118/72 146/86 Pulse 78 64 60 88 80 Weight 71.3 kg 72.1 kg 72.1 kg 71.9 kg BMI 30.06 BMI 29.69 kg/m2 30.04 kg/m2 30.04 kg/m2 29.97 kg/m2 Remote Patient Monitoring: Oxygen Needs: NO supplemental oxygen needs identified DME Needs: NO DME needs identified Medications: Current DTP: Other: torsemide 20 mg x's 3 days Subjective: Condition Status: [facility] Current Concerns: Call placed to patient for weight/DTP follow up. Left message on mobile number for return call to [facility] Disposition: Issue resolved. All appropriate follow up scheduled. Future Visits Scheduled: Future Appointments-next 60 days Date/Time Provider Specialty Dept Phone 06/15/2023 3:00 PM Maia Andersen, [facility] Family Medicine [phone] 06/20/2023 4:00 PM Lana Lieberman RN [facility] [phone] 10/12/2023 10:40 AM (Arrive by 10:25 AM) Gilbert Calloway MD Family Medicine [phone] FARIDEH Sampson LPN [facility] 06/14/2023,11:27 AM documented in this encounter Plan of Treatment Upcoming Encounters Date Type Department Care Team (Late st Contact Info) Description 06/15/2023 3:00 PM EDT Home Visit Care Coordination and Integration [address] [place] [address] Maia Andersen, [facility] [address] [facility] [place] [address] 06/20/2023 4:00 PM EDT Home Visit [facility], [facility] [address] [facility] [place] [id number] Lana Lieberman RN [address] [facility] [place] [address] 10/12/2023 10:40 AM EDT Office Visit Family Medicine [address] [place] [phone] Gilbert Calloway MD [address] [place] [address] [place] [phone] Health Maintenance Due Date Last Done Comments DTaP,Tdap,and Td Vaccines (1 - Tdap) 11/15/1957 COVID-19 Vaccine (5 - 2022- season) 2022 04/19/2020, 04/04/2020, 03/22/2020, Additional history exists Albumin/Creatinine Ratio 07/28/2023 023, 06/09/2020, 03/13/2019, Additional history exists TSH 07/28/2023 07/27/2022, 05/21, 06/09/2020, Additional history exists CKD PHOS USE SMARTSET 93005 10/05/202309/19, 06/08/2021, 09/07/2020, Additional history exists Influenza Vaccine (FLU shot) (Season Ended) 2023 01/10/2022, 11/18/2020, 12/06/2019, Additional history exists CKD HGB USE SMARTSET 49686 03/06/202403/06, 03/06/2023, 10/04/2022, Additional history exists Pneumococcal [...] filedocumented as of this encounter Care Teams Mixer And Blender Relationship Specialty Start Date End Date Gilbert Calloway MD [address] [place] [address] [place] [phone] PCP - General Family Medicine 04/11/23 documented as of this encounter
--- OUTSIDE RECORDS SUMMARY | 2023-11-03 17:41 | External Medical Summary | Summary of Care ---
Author Name Unknown Organization [facility] Address [address] [place] [address] Phone [phone] Care Team Providers Care Director Of Hotel Operations Name Role Phone Gilbert Calloway MD Primary Care Provide r Encounter Details Date Type Department Care Team (Late st Contact Info) Description 06/15/2023 3:00 PM EDT Home Visit Care Coordination and Integration [address], [place] [phone] Maia Andersen [facility] [address], [place] [phone] Allergies Active Allergy Reactions Criticality Noted Date [...] discuss her pain concerns. She is aware [facility] does not manage chronic pain meds. With her history of confusion, would recommend against use of narcotic medication. 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 Last Assessment & [...] 06/30/2014 06/26/2017 Overview: hgb 7.4 admitted [facility] CKD (chronic kidney disease) stage 3, [...] Sign Reading Time Taken Comments Blood Pressure 115/50 06/15/2023 2:05 PM EDT Pulse 70 06/15/2023 2:05 PM EDT Temperature 36.6 C (97.8 F) 06/15/2023 2:05 PM ED T Respiratory Rate - - Oxygen Saturation 94% 06/15/2023 2:05 PM EDT Inhaled Oxygen Concentration - - Weight - - Height - - Body Mass Index - - documented in this encounter Progress Notes * Maia Andersen, [facility] - 06/15/2023 2:18 PM EDT Telemedicine visit: No [facility] (KARELY) documentation: CHW initiated home visit with patient- Patient was concerned that both of her ankles and feet are swollen today and the right is worse than the left which is not normal for her. She has started the torsemide however this is only her 2nd day taking because she could not find it. She took 20mg yesterday and 20 mg today, Sunday and has not seen any difference. CHW sent TT to in regards to this issue. Patient has been trying to watch her sodium level as well in what she eats. CHW made some suggestions on what to look for andwhat kinds of things are high in sodium. CHW was instructed to send TT to [facility] schedulers and they will place a follow up call to patient tomorrow to check on swelling. Patient needs to take her dose tomorrow to make it the 3 days. Maia Andersen- Community Health Worker 1 Support Services/[facility] [place] [email or web address] documented in this encounter Plan of Treatment Upcoming Encounters Date Type Department Care Team (Late st Contact Info) Description 06/20/2023 4:00 PM EDT Home Visit [facility] [place], [facility] [address] [place] [address] Lana Lieberman, RN [address] [place] [place] [address] 10/12/2023 10:40 AM EDT Office Visit Family Medicine [facility] [place] [place] [phone] Gilbert Claloway MD [address] [place] [address] [place] [phone] Health Maintenance Due Date Last Done Comments DTaP,Tdap,and Td Vaccines (1 - Tdap) 11/15/1957 COVID-19 Vaccine (2022-24 season) 2022 04/19/2020, 04/04/2020, 03/22/2020, Additional history exists Albumin/Creatinine Ratio 07/28/2023 023, 06/09/2020, 03/13/2019, Additional history exists TSH 07/28/2023 07/27/2022, 05/21, 06/09/2020, Additional history exists CKD PHOS USE SMARTSET 13358 10/05/2023 0807/2022, 06/08/2021, 09/07/2020, Additional history exists Influenza Vaccine (FLU shot) (Season Ended) 2023 01/10/2022, 11/18/2020, 12/06/2019, Additional history exists CKD HGB USE SMARTSET 19126 03/06/202403/06, 03/06/2023, 10/04/2022, Additional history exists Pneumococcal [...] of this encounter Care Teams Director Of Hotel Operations Relationship Specialty Start Date End Date Gilbert Calloway MD [address] [place] [address] [place] [phone] PCP - General Family Medicine 04/11/23 documented as of this encounter
--- OUTSIDE RECORDS SUMMARY | 2023-11-03 17:42 | External Medical Summary | Summary of Care ---
Author Name Unknown Organization [facility] Address [address] [place] [address] Phone [phone] Care Team Providers Care Corrugator Operator Name Role Phone Gilbert Calloway MD Primary Care Provide r Reason for Visit * Reason Onset Date Comments [facility]: Maintenance 06/05/2023 Encounter Details Date Type Department Care Team (Late st Contact Info) Description 06/05/2023 Telephone [facility], [facility] [address] [place] [facility] [address] [facility], Nurse [facility] [address] [place], [place] [phone] [facility]: Maintenance Allergies Active Allergy Reactions Criticality Noted Date Comments Ergotamine 03/01/2000 vomit Nitroglycerin 03/14/2007 vomitting documented as of this encounter (statuses as of 06/05/2023) Medications Medication Sig Dispensed Refills Start Date [...] as of this encounter (statuses as of 06/05/2023) Active Problems Problem Noted Date Diagnosed Date [...] joint replacement status 09/09/2002 Atherosclerosis of [place] co ronary artery of [place] heart without angina pectoris Last Assessment & Plan: Stable no angina -continue rosuvastatin, metopropolol, Anxiety state Last Assessment & Plan: Stable on buspar, Primary hypertension Gastroesophageal reflux dise ase with esophagitis without hemorrhage Last Assessment & Plan: symptoms controlled on pantoprazole Scoliosis of lumbar spine Mixed incontinence urge and stress (male)(female ) documented as of this encounter (statuses as of 06/05/2023) Resolved Problems Problem Noted Date Diagnosed Date [...] as of this encounter (statuses as of 06/05/2023) Immunizations Name Administration Dates Next Due COVID-19 [...] encounter Miscellaneous Notes * Telephone Encounter - Wilma Gross LPN - 06/05/2023 10:51 AM EDT Images from the original note were not included. [facility] Remote Patient Monitoring Unable to contact patient: Trigger type: Abnormal reading(s): Device(s) Triggered: [facility] (Advanced Monitored Caregiving): Scale: Trigger priority per [facility]C: 162.6 Left message to please return call in regards to weight documented in this encounter Plan of Treatment Upcoming Encounters Date Type Department Care Team (Late st Contact Info) Description 06/07/2023 12:30 PM EDT Office Visit [facility], [facility] [address] [place] [address] Radha Martinez PA-C [address] [place] [address] 06/20/2023 4:00 PM EDT Home Visit [facility] [address] [place] [address] Lana Lieberman RN [address] [place] [address] 10/12/2023 10:40 AM EDT Office Visit Family [address] [place] [phone] Gilbert Calloway MD [address] [place] [address] [place] [address] Health Maintenance Due Date Last Done Comments DTaP,Tdap,and Td Vaccines (1 - Tdap) 11/15/1957 COVID-19 Vaccine (5 - 2022- season) 2022 04/19/2020, 04/04/2020, 03/22/2020, Additional history exists Albumin/Creatinine Ratio 07/28/2023 023, 06/09/2020, 03/13/2019, Additional history exists TSH 07/28/2023 07/27/2022, 05/21, 06/09/2020, Additional history exists CKD PHOS USE SMARTSET 48888 10/05/202309/19, 06/08/2021, 09/07/2020, Additional history exists Influenza Vaccine (FLU shot) (Season Ended) 2023 01/10/2022, 11/18/2020, 12/06/2019, Additional history exists CKD HGB USE SMARTSET 25692 03/06/202403/064, 03/06/2023, 10/04/2022, Additional history exists Pneumococcal Vaccine: [...] filedocumented as of this encounter Care Teams Corrugator Operator Relationship Specialty Start Date End Date Gilbert Calloway MD [address] [place] [address] [place] [phone] PCP - General Family Medicine 04/11/23 documented as of this encounter
--- OUTSIDE RECORDS SUMMARY | 2023-11-03 17:42 | External Medical Summary | Summary of Care ---
Author Name Unknown Organization [facility] Address [address] [place] [place] [address] Phone [phone] Care Team Providers Care Tobacco Stripping Machine Operator Name Role Phone Gilbert Calloway MD Primary Care Provide r Reason for Visit * Reason Comments [facility]: Maintenance Encounter Details Date Type Department Care Team (Late st Contact Info) Description 05/16/2023 11:00 AM EDT Home Visit [facility], [facility] [address] [place] [address] Lana Lieberman, RN [address] [place] [phone] Allergies Active Allergy Reactions Criticality Noted Date Comments Ergotamine 03/01/2000 vomit Nitroglycerin 03/14/2007 vomitting documented as of this encounter (statuses as of 05/18/2023) Medications Medication Sig Dispensed Refills Start Date [...] AT BEDTIME 90 Tablet 1 05/03/2023 Active hydrOXYzine HCl 10 MG Oral Tablet (Atarax) Take 1 Tablet by mouth daily as needed for Anxiety. ANXIETY 30 Tablet 1 04/17/2023 4 Discontinue d(Medicatio n List Clean Up) Zolpidem Tartrate 5 MG Oral Tablet (Ambien)Indications: Primary insomnia Take 1 Tablet by mouth at bedtime as needed for Sleep. 30 Tablet 0 04/25/2023 4 Discontinue d(Medicatio n List Clean Up) documented as of this encounter (statuses as of 05/18/2023) Active Problems Problem Noted Date Diagnosed Date [...] as of this encounter (statuses as of 05/18/2023) Resolved Problems Problem Noted Date Diagnosed Date [...] as of this encounter (statuses as of 05/18/2023) Immunizations Name Administration Dates Next Due COVID-19 [...] Sign Reading Time Taken Comments Blood Pressure 142/72 05/16/2023 11:54 AM EDT Pulse 64 05/16/2023 11:54 AM EDT Temperature 35.7 C (96.3 F) 05/16/2023 11:54 AM E DT Respiratory Rate 18 05/16/2023 11:54 AM EDT Oxygen Saturation 92% 05/16/2023 11:54 AM EDT Inhaled Oxygen Concentration - - Weight 72.1 kg (159 lb) 05/16/2023 11:54 AM EDT Height - - Body Mass Index 30.04 04/11/2023 11:01 AM EST documented in this encounter Progress Notes * Lana Lieberman RN - 05/16/2023 10:48 AM EDT Images from the original note were not included. [facility] Mechanical Striper Visit Date: 05/16/2023 Time: 10:49 AM Name: Zoya Howard : 1938 Current Concerns: Patient seen for follow up- CHF, CKD, Osteoarthritis, Anxiety. Reports doing well. Weighing daily Taking medication as prescribed Plans to drive and grab herself something out to eat today. Weights stable VS wnl Lungs clear bilaterally Sob with exertion No LE edema noted Appetite good- denies nausea Taking fluids well Denies pain Physical Exam: BP 142/72 (BP Site: Right Arm, BP Position: Sitting, BP Cuff Size: Regular) | Pulse 64 | Temp 35.7 C (96.3 F) (Tympanic) | Resp 18 | Wt 72.1 kg (159 lb) | SpO2 92% | BMI 30.04 kg/m | BSA 1.76 m Pain 0 Physical Exam Constitutional: Appearance: Normal appearance. Cardiovascular: Rate and Rhythm: Normal rate and regular rhythm. Pulses: Normal pulses. Heart sounds: Normal heart sounds. Pulmonary: Effort: Pulmonary effort is normal. Breath sounds: Normal breath sounds. Abdominal: General: Bowel sounds are normal. Palpations: Abdomen is soft. Musculoskeletal: General: Normal range of motion. Left lower leg: Edema present. Skin: General: Skin is warm and dry. Capillary Refill: Capillary refill takes 2 to 3 seconds. Neurological: General: No focal deficit present. Mental Status: She is alert and oriented to person, place, and time. Psychiatric: Mood and Affect: Mood normal. Behavior: Behavior normal. Problems/Symptoms: Review of Systems Constitutional: Negative. HENT: Negative. Respiratory: Positive for shortness of breath. Gastrointestinal: Negative. Genitourinary: Negative. Musculoskeletal: Positive for gait problem. Skin: Negative. Hematological: Negative. Psychiatric/Behavioral: Negative. Medication Reconciliation: (See medication list) Does patient take medications as ordered: Yes Patient Well Being: PHQ2/9: No questionnaires available. Within normal limits [facility]-10 Completed this Visit: No. Routine visit Advanced Care Planning: POLST. Patient's Goals of Care: Get my hair and nails done regularly Get out and take my car for a ride Get another dog once I'm stronger Reinforcement/Education: Reviewed HF symptom monitoring: -Weigh self daily [...] if at night -increased fatigue or vertigo Educated on home safety: Create a fall proof home Clear floors of clutter, loose wires, throw rugs, and cords. Make sure halls, stairways, and entrances are well lit. Install a nightlight in your bedroom, hallway and bathroom. Install grab bars or handrails in the bathroom and on stairs. Use a non-skid tub/shower mat. Avoid climbing on a chair; instead use a step stool with a high handrail. Keep sidewalks and steps in good repair Keep steps and sidewalks free of snow and ice. Using aids to support and prevent falls If you have poor balance or have fallen in the past, consider additional support such as a cane or walker. Use a cane with good support and that is the proper length for you. Use a walker if a cane doesnt provide enough support. Avoid medications that increase the risk of falling by causing dizziness, change in sensation or slowed reflexes. Certain medicines may cause falls - blood pressure pills, heart medicines, water pills, or sleepingpills. Be sure to understand each medicine that you are taking and any side effects that may occur. Improve your balance and flexibility with muscle strengthening exercises. Ask your health care provider for some exercises that will be right for you. Treatment/Plan: Continue medications as prescribed Keep all upcoming MD appointments Fall precautions Fluids encouraged Low na diet Weigh merle- AMC scale Elevate BLE prn RN CM follow up in 4 weeks. Home Interventions Provided: Reinforced current Plan of Care, including self-management and medication regimen Patient's 'Red Flags': Dizziness Sob, increased swelling, wt gain >2 lbs Nausea not relieved by Zofran Patient Needs to Remember: Call [facility] with any medical concerns/ red flags Referrals Needed: N/a Follow Up: Is there cellular connectivity/connectivity in the home? Yes Does the patient have internet in the home? No Patient encouraged to call the intake phone number for all urgent but not emergent issues. Is the patient new to [facility] within the last 30 days? No, Assess appropriateness for upcoming telehealth visits. Cancel telehealth visits & schedule home visit with care maintenance team leader(s)as indicated. Provider is in agreement with Plan of Care: Yes Scheduled to follow up with patient in 4 weeks. Lana Schuler RN 05/16/2023 10:49 AM documented in this encounter Plan of Treatment Upcoming Encounters Date Type Department Care Team (Late st Contact Info) Description 06/20/2023 4:00 PM EDT Home Visit [place] [facility] [address] [place] [phone] Lana Lieberman, KHARI [address] [place] [address] 10/12/2023 10:40 AM EDT Office Visit Family Medicine [address] [place] [phone] Gilbert Calloway MD [address] [place] [address] [place] [address] Health Maintenance Due Date Last Done Comments [...] Additional history exists CKD PHOS USE SMARTSET 20331 10/05/202309/19, 06/08/2021, 09/07/2020, Additional history exists CKD HGB USE SMARTSET 76213 03/06/202403/06, 03/06/2023, 10/04/2022, Additional history exists Pneumococcal [...] filedocumented as of this encounter Care Teams Tobacco Stripping Machine Operator Relationship Specialty Start Date End Date Gilbert Calloway MD [address] [place] [address] [place] [phone] PCP - General Family Medicine 04/11/23 documented as of this encounter
--- OUTSIDE RECORDS SUMMARY | 2023-11-03 17:42 | External Medical Summary | Summary of Care ---
Author Name Unknown Organization [facility] Address [address] [facility] [place] [address] Phone [phone] Care Team Providers Care Gold Plater Name Role Phone Gilbert Calloway MD Primary Care Provide r Reason for Visit * Reason Comments Outpatient Testing Encounter Details Date Type Department Care Team (Late st Contact Info) Description 05/29/2023 3:50 PM EDT Laboratory Laboratory [address] [place] [phone] [place] [address] Stage 4 chronic kidney disease (HCC) Allergies Active Allergy Reactions Criticality Noted Date Comments Ergotamine 03/01/2000 vomit Nitroglycerin 03/14/2007 vomitting documented as of this encounter (statuses as of 05/29/2023) Medications Medication Sig Dispensed Refills Start Date [...] Active Benzonatate 100 MG Oral Capsule (Tessalon Perlallen)Indications:Vi ral URI with cough Take 1 [...] as of this encounter (statuses as of 05/29/2023) Active Problems Problem Noted Date Diagnosed Date [...] discuss her pain concerns. She is aware [facility] does not manage chronic pain meds. [...] as of this encounter (statuses as of 05/29/2023) Resolved Problems Problem Noted Date Diagnosed Date [...] as of this encounter (statuses as of 05/29/2023) Immunizations Name Administration Dates Next Due COVID-19 [...] PM EDT Office Visit [facility], [facility] [address] [place] [address] Radha Martinez PA-C [address] [place] [address] 06/20/2023 4:00 PM EDT Home Visit [facility] [place], [facility] [address] [place] [address] Lana Lieberman, RN [address] [place] [address] 10/12/2023 10:40 AM EDT Office Visit Family Medicine [address] [place] [phone] Gilbert Calloway MD [address] [place] [address] [place] [address] Pending Results Name Type Priority Associated Diagnoses Date /Time BASIC METABOLIC PANEL Lab Routine Stage 4 chronic kidney disease (HCC) 05/29/2023 3:45 PM EDT Health Maintenance Due Date Last Done Comments DTaP,Tdap,and Td Vaccines (1 - Tdap) 11/15/1957 COVID-19 Vaccine ( - season) 2022 04/19/2020, 04/04/2020, 03/22/2020, Additional history exists Albumin/Creatinine Ratio 07/28/2023 023, 06/09/2020, 03/13/2019, Additional history exists TSH 07/28/2023 07/27/2022, 05/21, 06/09/2020, Additional history exists CKD PHOS USE SMARTSET 78012 10/05/202309/19, 06/08/2021, 09/07/2020, Additional history exists Influenza Vaccine (FLU shot) (Season Ended) 2023 01/10/2022, 11/18/2020, 12/06/2019, Additional history exists CKD HGB USE SMARTSET 11128 03/06/202403/06, 03/06/2023, 10/04/2022, Additional history exists Pneumococcal [...] as of this encounter Visit Diagnoses Diagnosis Stage 4 chronic kidney disease (HCC) documented in this encounter Care Teams Gold Plater Relationship Specialty Start Date End Date Gilbert Calloway MD [address] [place] [address] [place] [phone] PCP - General Family Medicine 04/11/23 documented as of this encounter
--- OUTSIDE RECORDS SUMMARY | 2023-11-03 17:42 | External Medical Summary | Summary of Care ---
Author Name Unknown Organization [facility] Address [address] [place] [address] Phone [phone] Care Team Providers Care Chrome Worker Name Role Phone Gilbert Calloway MD Primary Care Provide r Reason for Visit * Reason Onset Date Comments [facility]: Maintenance 06/11/2023 Encounter Details Date Type Department Care Team (Late st Contact Info) Description 06/11/2023 Telephone [facility], [facility] [address] [place] [address] [facility], Nurse [facility] [address] [place] [address] [facility]: Maintenance Allergies Active Allergy Reactions Criticality Noted Date Comments Ergotamine 03/01/2000 vomit Nitroglycerin 03/14/2007 vomitting documented as of this encounter (statuses as of 06/11/2023) Medications Medication Sig Dispensed Refills Start Date [...] as of this encounter (statuses as of 06/11/2023) Active Problems Problem Noted Date Diagnosed Date 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[place] co ronary artery of [place] heart without angina pectoris Last Assessment & Plan: Stable no angina -continue rosuvastatin, metopropolol, Anxiety state Last Assessment & Plan: Stable on buspar, Primary hypertension Gastroesophageal reflux dise ase with esophagitis without hemorrhage Last Assessment & Plan: symptoms controlled on pantoprazole Scoliosis of lumbar spine Mixed incontinence urge and stress (male)(female ) documented as of this encounter (statuses as of 06/11/2023) Resolved Problems Problem Noted Date Diagnosed Date [...] as of this encounter (statuses as of 06/11/2023) Immunizations Name Administration Dates Next Due COVID-19 [...] Telephone Encounter - Shelby Arroyo LPN - 06/11/2023 9:01 AM EDT Images from the original note were not included. [facility] Remote Patient Monitoring Unable to contact patient: Trigger type: Abnormal reading(s): Device(s) Triggered: [facility] (Advanced Monitored Caregiving): Scale: Trigger weight: 164.6 lbs; weight increased 5 lbs in 10 day(s) Plan: Route to RNCM (Registered Nurse Grief Counsellor) in care team Left message to return call to [facility] documented in this encounter Plan of Treatment Upcoming Encounters Date Type Department Care Team (Late st Contact Info) Description 06/20/2023 4:00 PM EDT Home Visit [place] [facility], [facility] [address] [place] [address] Lana Lieberman, RN [address] [place] [address] 10/12/2023 10:40 AM EDT Office Visit Family Medicine [address] [place] [phone] Gilbert Calloway MD [address] [place] [address] [place] [address] Health Maintenance Due Date Last Done Comments DTaP,Tdap,and Td Vaccines (1 - Tdap) 11/15/1957 COVID-19 Vaccine ( - season) 2022 04/19/2020, 04/04/2020, 03/22/2020, Additional history exists Albumin/Creatinine Ratio 07/28/2023 023, 06/09/2020, 03/13/2019, Additional history exists TSH 07/28/2023 07/27/2022, 05/21, 06/09/2020, Additional history exists CKD PHOS USE SMARTSET 30645 10/05/202309/19, 06/08/2021, 09/07/2020, Additional history exists Influenza Vaccine (FLU shot) (Season Ended) 2023 01/10/2022, 11/18/2020, 12/06/2019, Additional history exists CKD HGB USE SMARTSET 79244 03/06/202403/06, 03/06/2023, 10/04/2022, Additional history exists Pneumococcal [...] filedocumented as of this encounter Care Teams Chrome Worker Relationship Specialty Start Date End Date Gilbert Calloway MD [address] [place] [address] [place] [phone] PCP - General Family Medicine 04/11/23 documented as of this encounter
--- OUTSIDE RECORDS SUMMARY | 2023-11-03 17:42 | External Medical Summary | Summary of Care ---
Author Name Unknown Organization [facility] Address [address] [place] [address] Phone [phone] Care Team Providers Care Global Compensation Analyst Name Role Phone Gilbert Calloway MD Primary Care Provide r Encounter Details Date Type Department Care Team (Late st Contact Info) Description 06/07/2023 Population Health External Data Unspecified Department Allergies Active Allergy Reactions Criticality Noted Date Comments Ergotamine 03/01/2000 vomit Nitroglycerin 03/14/2007 vomitting documented as of this encounter (statuses as of 06/07/2023) Medications Medication Sig Dispensed Refills Start Date [...] as of this encounter (statuses as of 06/07/2023) Active Problems Problem Noted Date Diagnosed Date [...] joint replacement status 09/09/2002 Atherosclerosis of [place] co ronary artery of [place] heart without angina pectoris Last Assessment & Plan: Stable no angina -continue rosuvastatin, metopropolol, Anxiety state Last Assessment & Plan: Stable on buspar, Primary hypertension Gastroesophageal reflux dise ase with esophagitis without hemorrhage Last Assessment & Plan: symptoms controlled on pantoprazole Scoliosis of lumbar spine Mixed incontinence urge and stress (male)(female ) documented as of this encounter (statuses as of 06/07/2023) Resolved Problems Problem Noted Date Diagnosed Date [...] as of this encounter (statuses as of 06/07/2023) Immunizations Name Administration Dates Next Due COVID-19 [...] Description 06/20/2023 4:00 PM EDT Home Visit [facility] at [facility] [address] [facility] [place] [address] Lana Lieberman, KHARI [address] [facility] [place] [address] 10/12/2023 10:40 AM EDT Office Visit Family Medicine [address] [place] [phone] Gilbert Calloway MD [address] [place] [address] [place] [address] Health Maintenance Due Date Last Done Comments DTaP,Tdap,and Td Vaccines (1 - Tdap) 11/15/1957 COVID-19 Vaccine (5 - 2023-24 season) 2022 04/19/2020, 04/04/2020, 03/22/2020, Additional history exists Albumin/Creatinine Ratio 07/28/2023 023, 06/09/2020, 03/13/2019, Additional history exists TSH 07/28/2023 07/27/2022, 05/21, 06/09/2020, Additional history exists CKD PHOS USE SMARTSET 43350 10/05/202309/19, 06/08/2021, 09/07/2020, Additional history exists Influenza Vaccine (FLU shot) (Season Ended) 2023 01/10/2022, 11/18/2020, 12/06/2019, Additional history exists CKD HGB USE SMARTSET 05705 03/06/202403/06, 03/06/2023, 10/04/2022, Additional history exists Pneumococcal [...] as of this encounter Care Teams Global Compensation Analyst Relationship Specialty Start Date End Date Gilbert Calloway MD [address] [place] [address] [place] [address] PCP - General Family Medicine 04/11/23 documented as of this encounter
--- OUTSIDE RECORDS SUMMARY | 2023-11-03 17:42 | External Medical Summary | Summary of Care ---
Author Name Unknown Organization [facility] Address [address] [place] [address] Phone [phone] Care Team Providers Care Wax Pattern Repairer Name Role Phone Gilbert Calloway MD Primary Care Provide r Reason for Visit * Reason Onset Date Comments Health Maintenance 05/16/2023 Encounter Details Date Type Department Care Team (Late st Contact Info) Description 05/16/2023 Telephone Family Medicine [address] [place] [phone] Gilbert Calloway MD [address] [place] [address] [place] [address] Health Maintenance Allergies Active Allergy Reactions Criticality Noted Date Comments Ergotamine 03/01/2000 vomit Nitroglycerin 03/14/2007 vomitting documented as of this encounter (statuses as of 05/16/2023) Medications Medication Sig Dispensed Refills Start Date [...] before bedtime. 100 Tablet 0 04/09/2023 Active hydrOXYzine HCl 10 MG Oral Tablet (Atarax) Take 1 Tablet by mouth daily as needed for Anxiety. ANXIETY 30 Tablet 1 04/17/2023 Active Zolpidem Tartrate 5 MG Oral Tablet (Ambien)Indications:P rimary insomnia Take 1 Tablet by mouth at bedtime as needed for Sleep. 30 Tablet 0 04/25/2023 Active Pantoprazole Sodium 40 MG Oral Tablet Delayed Release (Protonix)Indications :Gastric ulcer without hemorrhage or perforation, unspecified chronicity,Gastroesop hageal reflux disease with esophagitis without hemorrhage TAKE ONE TABLET TWICE DAILY 180 Tablet 1 05/03/2023 Active Rosuvastatin Calcium 10 MG Oral Tablet (Crestor)Indications: Dyslipidemia, goal LDL below 100 TAKE ONE TABLET BY MOUTH AT BEDTIME 90 Tablet 1 05/03/2023 Active documented as of this encounter (statuses as of 05/16/2023) Active Problems Problem Noted Date Diagnosed Date [...] discuss her pain concerns. She is aware 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 Last Assessment & Plan: Stable no angina -continue rosuvastatin, metopropolol, Anxiety state Last Assessment & Plan: Stable on buspar, Primary hypertension Gastroesophageal reflux dise ase with esophagitis without hemorrhage Last Assessment & Plan: symptoms controlled on pantoprazole Scoliosis of lumbar spine Mixed incontinence urge and stress (male)(female ) documented as of this encounter (statuses as of 05/16/2023) Resolved Problems Problem Noted Date Diagnosed Date [...] as of this encounter (statuses as of 05/16/2023) Immunizations Name Administration Dates Next Due COVID-19 [...] encounter Miscellaneous Notes * Telephone Encounter - RadhaEstebanFARIDEH magaña - 05/16/2023 9:27 AM EDT Care Gaps Comprehensive Care Outreach Last Office/Telemedicine Visit: 04/11/2023 (in office), 01/10/2023 (telemedicine) Next Office Visit: 10/12/2023 Hemoglobin AIC Results: Lab Results Component Value Date/Time HEMOGLOBIN A1C - [facility] 5.2 11/04/2013 12:09 PM HEMOGLOBIN A1C - [facility] 5.6 02/10/2008 10:46 AM HEMOGLOBIN A1C - [facility] 6.0 05/26/2003 02:17 PM BP Readings from Last 1 Encounters: 04/11/23 128/82 Reviewed Health Maintenance below: Health Maintenance Topic Date Due DTaP,Tdap,and Td Vaccines (1 - Tdap) Never done Depression Screening 09/29/2020 Influenza Vaccine (FLU shot) (1) 10/20/2022 COVID-19 Vaccine ( season) 2022 Albumin/Creatinine Ratio 07/28/2023 TSH 07/28/2023 CKD PHOS USE SMARTSET 16822 10/05/2023 labs Care Gap Outreach Action Taken: Left message documented in this encounter Plan of Treatment Upcoming Encounters Date Type Department Care Team (Late st Contact Info) Description 05/16/2023 11:00 AM EDT Home Visit [facility] [address] [facility] [place] [address] Lana Lieberman RN [address] [place] [address] 10/12/2023 10:40 AM EDT Office Visit Family Medicine [address] [place] [phone] Gilbert Calloway MD [address] [place] [address] [place] [address] Health Maintenance Due Date Last Done Comments DTaP,Tdap,and Td Vaccines (1 - Tdap) 11/15/1957 Depression Screening 09/29/2020 09/30/2019 COVID-19 Vaccine ( season) 2022 04/19/2020, 04/04/2020, 03/22/2020, Additional history exists Influenza Vaccine (FLU shot) (#1) 2022 01/10/2022, 11/18/2020, 12/06/2019, Additional history exists Albumin/Creatinine Ratio 07/28/2023 023, 06/09/2020, 03/13/2019, Additional history exists TSH 07/28/2023 07/27/2022, 05/21, 06/09/2020, Additional history exists CKD PHOS USE SMARTSET 47651 10/05/202309/19, 06/08/2021, 09/07/2020, Additional history exists CKD HGB USE SMARTSET 28248 03/06/202403/06, 03/06/2023, 10/04/2022, Additional history exists Pneumococcal [...] filedocumented as of this encounter Care Teams Wax Pattern Repairer Relationship Specialty Start Date End Date Gilbert Calloway MD [address] [place] [address] [place] [address] PCP - General Family Medicine 04/11/23 documented as of this encounter
--- OUTSIDE RECORDS SUMMARY | 2023-11-03 17:42 | External Medical Summary | Summary of Care ---
Author Name Unknown Organization [facility] Address [address] [facility] [place] [address] Phone [phone] Care Team Providers Care Engine House Helper Name Role Phone Gilbert Calloway MD Primary Care Provide r Reason for Visit * Reason Comments Outpatient Testing Encounter Details Date Type Department Care Team (Late st Contact Info) Description 05/29/2023 3:50 PM EDT Laboratory Laboratory [address] [place] [phone] [place] [address] Stage 4 chronic kidney disease (HCC) Allergies Active Allergy Reactions Criticality Noted Date Comments Ergotamine 03/01/2000 vomit Nitroglycerin 03/14/2007 vomitting documented as of this encounter (statuses as of 05/30/2023) Medications Medication Sig Dispensed Refills Start Date [...] as of this encounter (statuses as of 05/30/2023) Active Problems Problem Noted Date Diagnosed Date [...] her pain concerns. She is aware [facility] does not manage chronic pain meds. 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[place] ronary artery of [place] heart without angina pectoris Last Assessment & Plan: Stable no angina -continue rosuvastatin, metopropolol, Anxiety state Last Assessment & Plan: Stable on buspar, Primary hypertension Gastroesophageal reflux dise ase with esophagitis without hemorrhage Last Assessment & Plan: symptoms controlled on pantoprazole Scoliosis of lumbar spine Mixed incontinence urge and stress (male)(female ) documented as of this encounter (statuses as of 05/30/2023) Resolved Problems Problem Noted Date Diagnosed Date [...] as of this encounter (statuses as of 05/30/2023) Immunizations Name Administration Dates Next Due COVID-19 [...] PM EDT Office Visit [facility] [address] [place] [address] Radha Martinez PA-C [address] [place] [address] 06/20/2023 4:00 PM EDT [facility] Visit [facility] [address] [place] [address] Lana Lieberman, RN [address] [place] [address] 10/12/2023 10:40 AM EDT Office Visit Family Medicine [address] [place] [phone] Gilbert Calloway MD [address] [place] [address] [place] [address] Health Maintenance Due Date Last Done Comments DTaP,Tdap,and Td Vaccines (1 - Tdap) 11/15/1957 COVID-19 Vaccine ( - 2022- season) 2022 04/19/2020, 04/04/2020, 03/22/2020, Additional history exists Albumin/Creatinine Ratio 07/28/2023 023, 06/09/2020, 03/13/2019, Additional history exists TSH 07/28/2023 07/27/2022, 05/21, 06/09/2020, Additional history exists CKD PHOS USE SMARTSET 10110 10/05/202309/19, 06/08/2021, 09/07/2020, Additional history exists Influenza Vaccine (FLU shot) (Season Ended) 2023 01/10/2022, 11/18/2020, 12/06/2019, Additional history exists CKD HGB USE SMARTSET 33919 03/06/202403/06, 03/06/2023, 10/04/2022, Additional history exists Pneumococcal [...] Procedure Name Priority Date/Time Associated Diagnosis Comments BASIC METABOLIC PANEL Routine 05/29/2023 3:45 PM EDT Stage 4 chronic kidney disease (HCC) documented in this encounter Results * (ABNORMAL) BASIC METABOLIC PANEL (05/29/2023 3:45 PM EDT) BUN 24(H) 6 - 20 mg/dL 05/29/2023 11:49 PM EDT [facility] Creatinine 1.3(H) 0.5 - 1.0 mg/dL 05/29/2023 11:49 PM EDT [facility] Estimated Glomerular Filtration Rate 40(L) >=60 mL/min 05/29/2023 11:49 PM EDT [facility] Comment:eGFR is calculated b ased on the CKD-EPI 2020 equation Sodium 140 135 - 146 mmol/L 05/29/2023 11:49 PM EDT [facility] Potassium 4.5 3.5 - 5.1 mmol/L 05/29/2023 11:49 PM EDT [facility] Chloride 106 98 - 107 mmol/L 05/29/2023 11:49 PM EDT [facility] CO2 23 22 - 32 mmol/L 05/29/2023 11:49 PM EDT [facility] Anion Gap 11 7 - 15 mmol/L 05/29/2023 11:49 PM EDT [facility] Glucose 74 70 - 120 mg/dL 05/29/2023 11:49 PM EDT [facility] Calcium 10.0 8.4 - 10.2 mg/dL 05/29/2023 11:49 PM EDT [facility] Blood Venous blood specimen / Unknown Venipuncture / Unknown 05/29/2023 3:45 PM EDT 05/29/2023 3:45 PM EDT [facility] BLOOD ORDER [facility] [address] [place] [address] documented in this encounter Visit Diagnoses Diagnosis Stage 4 chronic kidney disease (HCC) documented in this encounter Care Teams Engine House Helper Relationship Specialty Start Date End Date Gilbert Calloway MD [address] [place] [address] [place] [address] PCP - General Family Medicine 04/11/23 documented as of this encounter
--- OUTSIDE RECORDS SUMMARY | 2023-11-03 17:42 | External Medical Summary | Summary of Care ---
Author Name Unknown Organization [facility] Address [address] [place] [address] Phone [phone] Care Team Providers Care Computer Salesperson Retail Name Role Phone Gilbert Calloway MD Primary Care Provide r Reason for Visit * Reason Onset Date Comments Medication Question 05/09/2023 Encounter Details Date Type Department Care Team (Late st Contact Info) Description 05/09/2023 Telephone Family Medicine [address] [place] [phone] Gilbert Calloway MD [address] [place] [address] [place] [phone] Medication Question Allergies Active Allergy Reactions Criticality Noted Date Comments Ergotamine 03/01/2000 vomit Nitroglycerin 03/14/2007 vomitting documented as of this encounter (statuses as of 05/09/2023) Medications Medication Sig Dispensed Refills Start Date [...] as of this encounter (statuses as of 05/09/2023) Active Problems Problem Noted Date Diagnosed Date [...] discuss her pain concerns. She is aware [facility] does not manage chronic pain meds. With her history of confusion, would recommend against use of narcotic medication. 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 Last Assessment & Plan: Stable no angina -continue rosuvastatin, metopropolol, Anxiety state Last Assessment & Plan: Stable on buspar, Primary hypertension Gastroesophageal reflux dise ase with esophagitis without hemorrhage Last Assessment & Plan: symptoms controlled on pantoprazole Scoliosis of lumbar spine Mixed incontinence urge and stress (male)(female ) documented as of this encounter (statuses as of 05/09/2023) Resolved Problems Problem Noted Date Diagnosed Date [...] as of this encounter (statuses as of 05/09/2023) Immunizations Name Administration Dates Next Due COVID-19 [...] encounter Miscellaneous Notes * Telephone Encounter - Sobia Pacheco, aluminum siding installer - 05/09/2023 2:57 PM EDT Patient wanted to know how many times a day she should be taking the gabapentin. Informed her 3 times a day. Sobia Morillo [employer] Worker [employer] [facility] [address] [place] [address] 05/09/2023 2:58 PM documented in this encounter Plan of Treatment Upcoming Encounters Date Type Department Care Team (Late st Contact Info) Description 10/12/2023 10:40 AM EDT Office Visit Family Medicine [address] [place] [phone] Gilbert Calloway MD [address] [place] [address] [place] [address] Health Maintenance Due Date Last Done Comments [...] Additional history exists CKD PHOS USE SMARTSET 96312 10/05/202309/19, 06/08/2021, 09/07/2020, Additional history exists CKD HGB USE SMARTSET 91680 03/06/202403/06, 03/06/2023, 10/04/2022, Additional history exists Pneumococcal [...] filedocumented as of this encounter Care Teams Computer Salesperson Retail Relationship Specialty Start Date End Date Gilbert Calloway MD [address] [place] [address] [place] [phone] PCP - General Family Medicine 04/11/23 documented as of this encounter
--- OUTSIDE RECORDS SUMMARY | 2023-11-03 17:42 | External Medical Summary | Summary of Care ---
Author Name Unknown Organization [facility] Address [address] [place] [address] Phone [phone] Care Team Providers Care Cna Caregiver Name Role Phone Gilbert Calloway MD Primary Care Provide r Reason for Visit * Reason Onset Date Comments Med Request 05/30/2023 Encounter Details Date Type Department Care Team (Late st Contact Info) Description 05/30/2023 Telephone Family Medicine [address] [place] [phone] Gilbert Calloway MD [address] [place] [address] [place] [address] Med Request Allergies Active Allergy Reactions Criticality Noted Date Comments Ergotamine 03/01/2000 vomit Nitroglycerin 03/14/2007 vomitting documented as of this encounter (statuses as of 06/04/2023) Medications Medication Sig Dispensed Refills Start Date [...] as of this encounter (statuses as of 06/04/2023) Active Problems Problem Noted Date Diagnosed Date [...] discuss her pain concerns. [facility] 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[place] co ronary artery of [place] heart without angina pectoris Last Assessment & Plan: Stable no angina -continue rosuvastatin, metopropolol, Anxiety state Last Assessment & Plan: Stable on buspar, Primary hypertension Gastroesophageal reflux dise ase with esophagitis without hemorrhage Last Assessment & Plan: symptoms controlled on pantoprazole Scoliosis of lumbar spine Mixed incontinence urge and stress (male)(female ) documented as of this encounter (statuses as of 06/04/2023) Resolved Problems Problem Noted Date Diagnosed Date [...] as of this encounter (statuses as of 06/04/2023) Immunizations Name Administration Dates Next Due COVID-19 [...] Telephone Encounter - Maylin Barfield RN - 06/04/2023 12:57 PM EDT I called pt, but she could not hear me on the phone and disconnected the call I will send a [employer] Message * Telephone Encounter - Daren Varela CRNP - 06/01/2023 8:06 AM EDT I do not feel comfortable prescribing any narcotics for pain. I would advise she picket labor union the prednisone to try and take Tylenol until she is able to see pain management. If she is unable to tolerate pain or pain is worsening then advise she go to the ER for evaluation and management. * Telephone Encounter - Flor Gilmore LPN - 05/31/2023 11:37 AM EDT Please advise. * Telephone Encounter - Esperanza Ware OSA - 05/30/2023 5:41 PM EDT Pt requesting pain medication Informed her she has a pain mg. Appt in 1 week but she did not want to wait She did not picket labor union her Prednisone so she could not take those Warm transfer to clinic but they were gone for the evening Wanted agent to call On-call provider stated they will not prescribe pain meds documented in this encounter Plan of Treatment Upcoming Encounters Date Type Department Care Team (Late st Contact Info) Description 06/07/2023 12:30 PM EDT Office Visit [facility], [facility] [address] [place] [address] Radha Martinez PA-C [address] [place] [phone] 06/20/2023 4:00 PM EDT Home Visit [facility] [address] [place] [place] [address] Lana Lieberman, KHARI [address] [place] [phone] 10/12/2023 10:40 AM EDT Office Visit [facility] Medicine [address] [phone] Gilbert Calloway MD [address] [place] [address] [place] [phone] Health Maintenance Due Date Last Done Comments DTaP,Tdap,and Td Vaccines (1 - Tdap) 11/15/1957 COVID-19 Vaccine ( - season) 2022 04/19/2020, 04/04/2020, 03/22/2020, Additional history exists Albumin/Creatinine Ratio 07/28/2023 023, 06/09/2020, 03/13/2019, Additional history exists TSH 07/28/2023 07/27/2022, 05/21, 06/09/2020, Additional history exists CKD PHOS USE SMARTSET 12521 10/05/202309/19, 06/08/2021, 09/07/2020, Additional history exists Influenza Vaccine (FLU shot) (Season Ended) 2023 01/10/2022, 11/18/2020, 12/06/2019, Additional history exists CKD HGB USE SMARTSET 74718 03/06/202403/06, 03/06/2023, 10/04/2022, Additional history exists Pneumococcal [...] filedocumented as of this encounter Care Teams Cna Caregiver Relationship Specialty Start Date End Date Gilbert Calloway MD [address] [place] [address] [place] [address] PCP - General Family Medicine 04/11/23 documented as of this encounter
--- OUTSIDE RECORDS SUMMARY | 2023-11-03 17:42 | External Medical Summary | Summary of Care ---
Author Name Unknown Organization [facility] Address [address] [facility] [address] Phone [phone] Care Team Providers Care Propeller Mechanic Name Role Phone Gilbert Calloway MD Primary Care Provide r Reason for Referral * Evaluate & Treat - Unlimited Visits (Within 10 days (routine)) - Authorized Specialty Diagnoses / Procedures Referred By Contlawanda t Referred To Contact Pain Management / Pain Medicine Diagnoses Chronic bilateral low back pain without sciatica Daren Varela [address] [place] [address] Referral ID Status Reason Start Date Expiration Date Visits Requested Visits Authorized [id number] Authorized Specialty Services Required 05/29/[phone] Question Answer Referral Priority Within 10 days (routine) Where should this appointment be scheduled? ising Reason for referral? Interventional Pain Management - (Injection) What condition is the patient being referred for? Back Axial What is the preferred location to have this test performed? [facility] Comments Patient Name: Zoya Howard Date of : 1938 Department Phone Number: MRI or CT (if unable to have a MRI) is recommended if any of the following apply: 1. Patient has neck or back pain with radiation to extremities. A previous MRI will be accepted if symptoms unchanged since prior MRI. 2. Spinal surgery since last MRI. If yes, order a MRI with and without contrast. 3. Hx or ongoing cancer treatment. Patient will need spine x-ray (Ap/Lat) for axial neck or back pain if not done previously. Fax No. [facility] [phone] or contact front line supervisor [phone] Fax No. [facility] [phone] or contact front line supervisor [phone] Fax No. [facility] [phone] or contact front line supervisor [phone] Reason for Visit * Reason Comments Acute Encounter Details Date Type Department Care Team (Late st Contact Info) Description 05/29/2023 2:40 PM EDT Office Visit Family Medicine [address] [place] [phone] Daren Varela CRNP [address] [place] [address] [place] [phone] Chronic bilateral low back pain without sciatica*; Stage 4 chronic kidney disease (HCC); Other insomnia Allergies Active Allergy Reactions Criticality Noted Date [...] joint replacement status 09/09/2002 Atherosclerosis of [place] co ronary artery of [place] heart without angina pectoris Last Assessment & [...] Sign Reading Time Taken Comments Blood Pressure 100/58 05/29/2023 3:07 PM EDT Pulse 78 05/29/2023 3:07 PM EDT Temperature 36.2 C (97.1 F) 05/29/2023 3:07 PM ED T Respiratory Rate 16 05/29/2023 3:07 PM EDT Oxygen Saturation - - Inhaled Oxygen Concentration - - Weight 71.3 kg (157 lb 2 oz) 05/29/2023 3:07 PM EDT Height - - Body Mass Index 29.69 04/11/2023 11:01 AM EST documented in this encounter Nursing Notes * Flor Gilmore LPN - 05/29/2023 3:07 PM EDT Asking for pain med and sleeping medicine. Trazodone doesn't help. Only sleeps 2 hours. Asking for something else. Ongoing low back pain and right hip pain. Taking Tylenol and it doesn't help. documented in this encounter Plan of Treatment Upcoming Encounters Date Type Department Care Team (Late st Contact Info) Description 06/07/2023 12:30 PM EDT Office Visit [facility], [facility] [address] [place] [phone] Radha Martinez PA-C [address] [place] [phone] 06/20/2023 4:00 PM EDT Home Visit [facility] [address] [place] [address] Lana Lieberman, KHARI [address] [place] [phone] 10/12/2023 10:40 AM EDT Office Visit Family Medicine [address] [place] [phone] Gilbert Calloway MD [address] [place] [address] [place] [phone] Pending Results Name Type Priority Associated Diagnoses Date /Time BASIC METABOLIC PANEL Lab Routine Stage 4 chronic kidney disease (HCC) 05/29/2023 3:45 PM EDT Scheduled Orders Name Type Priority Associated Diagnoses Orde r Schedule BASIC METABOLIC PANEL Lab Routine Stage 4 chronic kidney disease (HCC) Expected: 05/29/2023 (Approximate), Expires: 05/28/2024 Scheduled Referrals Name Type Priority Associated Diagnoses Orde r Schedule PAIN MEDICINE REFERRAL OP Referral Within 10 days (routine) Chronic bilateral low back pain without sciatica Ordered: 05/29/2023 Health Maintenance Due Date Last Done Comments DTaP,Tdap,and Td Vaccines (1 - Tdap) 11/15/1957 COVID-19 Vaccine ( season) 2022 04/19/2020, 04/04/2020, 03/22/2020, Additional history exists Albumin/Creatinine Ratio 07/28/2023 023, 06/09/2020, 03/13/2019, Additional history exists TSH 07/28/2023 07/27/2022, 05/21, 06/09/2020, Additional history exists CKD PHOS USE SMARTSET 56680 10/05/202309/19, 06/08/2021, 09/07/2020, Additional history exists Influenza Vaccine (FLU shot) (Season Ended) 2023 01/10/2022, 11/18/2020, 12/06/2019, Additional history exists CKD HGB USE SMARTSET 54017 03/06/202403/06, 03/06/2023, 10/04/2022, Additional history exists Pneumococcal [...] of this encounter Visit Diagnoses Diagnosis Chronic bilateral low back pain without sciatica- Primary Stage 4 chronic kidney disease (HCC) Other insomnia documented in this encounter Care Teams Propeller Mechanic Relationship Specialty Start Date End Date Gilbert Calloway MD [address] [place] [address] [place] [phone] PCP - General Family Medicine 04/11/23 documented as of this encounter
--- OUTSIDE RECORDS SUMMARY | 2023-11-03 17:42 | External Medical Summary | Summary of Care ---
Author Name Unknown Organization [facility] Address [address] [place] [address] Phone [phone] Care Team Providers Care Eco Industrial [employer] Consultant Name Role Phone Gilbert Calloway MD Primary Care Provide r Reason for Visit * Reason Onset Date Comments [facility]: Maintenance 05/24/2023 Encounter Details Date Type Department Care Team (Late st Contact Info) Description 05/24/2023 Telephone [facility], [facility] [address] [facility] [place] [address] [facility], Nurse [facility] [address] [facility] [place] [phone] [facility]: Maintenance Allergies Active Allergy Reactions Criticality Noted Date Comments Ergotamine 03/01/2000 vomit Nitroglycerin 03/14/2007 vomitting documented as of this encounter (statuses as of 05/24/2023) Medications Medication Sig Dispensed Refills Start Date [...] as of this encounter (statuses as of 05/24/2023) Active Problems Problem Noted Date Diagnosed Date [...] atrial fibrillation 03/01/2021 Overview: new onset, [facility] on apixaban Last Assessment 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 Last Assessment & Plan: Stable no angina -continue rosuvastatin, metopropolol, Anxiety state Last Assessment & Plan: Stable on buspar, Primary hypertension Gastroesophageal reflux dise ase with esophagitis without hemorrhage Last Assessment & Plan: symptoms controlled on pantoprazole Scoliosis of lumbar spine Mixed incontinence urge and stress (male)(female ) documented as of this encounter (statuses as of 05/24/2023) Resolved Problems Problem Noted Date Diagnosed Date [...] BP at goal at metoprolol Acquired hypothyroidism 01/19/2016/ Gastric ulcer 06/30/2014 06/26/2017 Overview: hgb 7.4 admitted [facility] CKD (chronic kidney disease) [...] as of this encounter (statuses as of 05/24/2023) Immunizations Name Administration Dates Next Due COVID-19 [...] Telephone Encounter - Elsy Harris LPN - 05/24/2023 10:08 AM EDT Images from the original note were not included. [facility] Remote Patient Monitoring Unable to contact patient: Trigger type: Abnormal reading(s): Device(s) Triggered: [facility] (Advanced Monitored Caregiving): Scale: Trigger weight: 159 lbs; weight increased 3 lbs in 1 day(s) Plan: [facility] trigger for weight increase of 3 lb in 1 day Call to pt no answer left requesting a return call to [facility] at [phone] opt#3 documented in this encounter Plan of Treatment Upcoming Encounters Date Type Department Care Team (Late st Contact Info) Description 05/29/2023 2:40 PM EDT Office Visit Family Medicine [address] [phone] Daren Varela CRNP [address] [place] [address] [place] [phone] 06/20/2023 4:00 PM EDT Home Visit [facility] [address] [place] [address] Lana Lieberman, KHARI [address] [place] [address] 10/12/2023 10:40 AM EDT Office Visit [address] [place] [phone] Gilbert Calloway MD [address] [place] [address] [place] [phone] Health Maintenance Due Date Last Done Comments DTaP,Tdap,and Td Vaccines (1 - Tdap) 11/15/1957 Depression Screening 09/29/2020 09/30/2019 COVID-19 Vaccine ( - 2022- season) 2022 04/19/2020, 04/04/2020, 03/22/2020, Additional history exists Albumin/Creatinine Ratio 07/28/2023 023, 06/09/2020, 03/13/2019, Additional history exists TSH 07/28/2023 07/27/2022, 05/21, 06/09/2020, Additional history exists CKD PHOS USE SMARTSET 17161 10/05/202309/19, 06/08/2021, 09/07/2020, Additional history exists Influenza Vaccine (FLU shot) (Season Ended) 2023 01/10/2022, 11/18/2020, 12/06/2019, Additional history exists CKD HGB USE SMARTSET 94645 03/06/202403/06, 03/06/2023, 10/04/2022, Additional history exists Pneumococcal [...] filedocumented as of this encounter Care Teams Eco Industrial Development Consultant Relationship Specialty Start Date End Date Gilbert Calloway MD [address] [place] [address] [place] [phone] PCP - General Family Medicine 04/11/23 documented as of this encounter
--- OUTSIDE RECORDS SUMMARY | 2023-11-03 17:42 | External Medical Summary ---
Author Name Unknown Address Unknown Organization [id number]:[facility] [address] [facility] [address] Laboratory Report Ordering Provider Test Date Status AUSTIN BILLY 05/29/2023 15:45:17 Final Observation Date Value Abnormality Reference (Units ) Status BUN 05/29/2023 15:45:17 24 Above high normal 6-20 (mg/dL) Final Creatinine 05/29/2023 15:45:17 1.3 Above high normal 0.5-1.0 (mg/dL) Final Glomerular filtration rate/1.73 sq M.predicted [Volume Rate/Area] in Serum, Plasma or Blood by Creatinine-based formula (CKD-EPI) 05/29/2023 15:45:17 40 Below low normal >=60 (mL/min) Final eGFR is calculated based on the CKD-EPI 2020 equation Sodium 05/29/2023 15:45:17 140 135-146 (m mol/L) Final Potassium 05/29/2023 15:45:17 4.5 3.5-5.1 (m mol/L) Final Cl 05/29/2023 15:45:17 106 98-107 (mm ol/L) Final CO2 05/29/2023 15:45:17 23 22-32 (mmo l/L) Final Anion gap 05/29/2023 15:45:17 11 7-15 (mmol /L) Final Glucose 05/29/2023 15:45:17 74 70-120 (mg /dL) Final Calcium 05/29/2023 15:45:17 10.0 8.4-10.2 ( mg/dL) Final Performing Location [facility] [address] [facility] [address]
[2023-11-03 18:15] LABS: Basophils # (auto) 0.04 K/uL (0.00-0.20); Basophils % (auto) 0.8 %; Eosinophils # (auto) 0.07 K/uL (0.00-0.50); Eosinophils % (auto) 1.4 %; Hematocrit (blood only) 35.8 % (37.0-47.0); Hemoglobin 11.6 g/dl (12.0-16.0); Immature Granulocytes # (auto) 0.01 K/uL (0.01-0.20); Immature Granulocytes % (auto) 0.2 %; Lymphocytes # (auto) 1.65 K/uL (1.20-3.40); Lymphocytes % (auto) 32.5 %; Mean Corpuscular Hemoglobin 28.6 pg (25.0-34.0); Mean Corpuscular Hgb Conc 32.4 g/dL (32.0-36.0); Mean Corpuscular Volume 88.2 fL (80.0-100.0); Mean Platelet Volume 9.6 fL (9.4-12.4); Monocytes % (auto) 9.9 %; Neutrophils % (auto) 55.2 %; Platelet Count 203 K/uL (130-400); RDW Coefficient of Variation 14.2 % (11.5-14.5); RDW Standard Deviation 45.9 fL (36.4-46.3); Red Blood Count 4.06 M/uL (4.20-5.40); White Blood Count 5.07 K/ul (4.8-10.8)
[2023-11-03 18:28] LABS: Albumin Globulin Ratio 1.3 (0.9-2); Albumin Level 4.2 gm/dl (3.4-5.0); Bilirubin,Total 0.9 mg/dl (0.2-1.0); Calcium 10.3 mg/dl (8.6-10.3); Creatinine Clr Calc Pharmacy 31.2 ml/min; Est GFR (African American) 45.1 ml/min; Est GFR (Non-African American) 38.9 ml/min; Globulin 3.3 gm/dl (2.5-4.0); Magnesium 1.7 mg/dl (1.7-2.4); Potassium 4.3 mmol/L (3.5-5.1); Total Protein 7.5 gm/dl (6.0-8.3)
[2023-11-03 18:35] LABS: Troponin I High Sensitivity 14.8 pg/ml (0-14)
[2023-11-03 18:36] LABS: INR 1.1 (0.9-1.1); Partial Thromboplastin Ratio 0.9; Partial Thromboplastin Time 25 Seconds (21-31); Prothrombin Time 11.8 Seconds (9.0-12.0)
[2023-11-03 18:47] LABS: Appearance Urine Cloudy (Clear); Bacteria Urine Automated 4+ (None Seen); Bilirubin Urine Negative (Negative); Blood Urine Negative (Negative); Cast Urine Automated 0-2 /lpf (0-2); Color Urine Yellow; Epithelial Cell Urine Auto 0-2 /hpf (0-2); Glucose Urine UA Negative (Negative); Ketones Urine Trace (Negative); Leukocyte Esterase Urine 3+ (Negative); Nitrite Urine Positive (Negative); Protein Urine Negative (Negative); RBC Urine Automated 0-2 /hpf (0-2); Specific Gravity Urine 1.011 (1.000-1.030); Urobilinogen Urine Negative (Negative); WBC Urine Automated >50 /hpf (0-5); pH Urine 8.5 (4.5-7.5)
[2023-11-03 18:48] LABS: Adenovirus PCR Not Detected (NotDetected); Bordetella parapertussis PCR Not Detected (NotDetected); Bordetella pertussis PCR Not Detected (NotDetected); Chlamydia pneumoniae PCR Not Detected (NotDetected); Coronavirus 229E PCR Not Detected (NotDetected); Coronavirus CoV-2 (COVID19)PCR Not Detected (NotDetected); Coronavirus HKU1 PCR Not Detected (NotDetected); Coronavirus NL63 PCR Not Detected (NotDetected); Coronavirus OC43PCR Not Detected (NotDetected); Human Metapneumovirus PCR Not Detected (NotDetected); Influenza A PCR Not Detected (NotDetected); Influenza B PCR Not Detected (NotDetected); Mycoplasma pneumoniae PCR Not Detected (NotDetected); Parainfluenza Virus 1 PCR Not Detected (NotDetected); Parainfluenza Virus 2 PCR Not Detected (NotDetected); Parainfluenza Virus 3 PCR Not Detected (NotDetected); Parainfluenza Virus 4 PCR Not Detected (NotDetected); Respiratory Syncytial VirusPCR Not Detected (NotDetected); Rhinovirus/Enterovirus PCR Not Detected (NotDetected)
--- NOTE | 2023-11-03 19:09 | XRay Report ---
XR chest 1V portable CLINICAL HISTORY: Dyspnea TECHNIQUE: Single frontal radiograph of the chest was obtained. Comparison: Comparison is made to rib series 03/14/2023 FINDINGS: Bilateral shoulder arthroplasties again noted. Cardiomegaly is noted. The aortic arch is calcified. T he lungs are clear. No evidence of pleural effusion or pneumothorax. IMPRESSION: No acute chest disease. Cardiomegaly is noted. ACT 112: Negative or not required by law. Electronically signed by: Heath Rockwell M.D. 11/03/2023 7:08 PM
[2023-11-03] MEDS: OPTIRAY 320 125ml IV ONE (19:30)
[2023-11-03] MEDS: cefTRIAXone SODIUM 2,000 MG/50 ML BAG IV STA (19:52)
--- NOTE | 2023-11-03 19:52 | CT Scan Report ---
CT angio chest PE protocol CLINICAL HISTORY: PE TECHNIQUE: Multidetector row helical CT of the chest was performed with angiographic protocol. Urbina l and sagittal reformations were obtained. Coronal and sagittal MIPS were obtained from the axial fatou a set and were submitted for review. Automated dose lowering techniques and/or adjustment according to patient size were utilized for this exam. CT DOSE: 515.65 mGy.cm Comparison: Comparison is made to CT chest 03/11/2023 FINDINGS: Lungs and pleura: Atelectasis versus scarring is seen in the dependent portions of the lungs. There i s a right pleural-based nodule measuring 12 mm with surrounding atelectasis, unchanged, as well as a stable 3 mm nodule in the right middle lobe (series 4 image 57). Heart and pericardium: Cardiomegaly is seen with biatrial enlargement. Vessels: No evidence of pulmonary embolism. Mediastinum and caryn: Unremarkable. Chest wall and lower neck: Unremarkable. Abdomen: A moderate hiatal hernia is seen. Bones: Degenerative changes in the thoracic spine. 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 IMPRESSION: 1. No acute abnormality and in particular no evidence of pulmonary embolus. 2. Stable pulmonary nodules as above. 3. Hepatomegaly with biatrial enlargement. 4. Additional findings as above. ACT 112: Negative or not required by law. Electronically signed by: Heath Rockwell M.D. 11/03/2023 7:50 PM
[2023-11-03] MEDS: ACETAMINOPHEN 1,000 MG/100 ML VIAL IV STA (20:11)
[2023-11-03] MEDS: LABETALOL HCL IV 5 MG/ML 20ML IV STA (20:51)
--- NOTE | 2023-11-03 22:48 | History & Physical Report ---
Date of Service November 03, 2023 Assessment & Plan (1) Acute UTI: Plan: 84-year-old female with past medical history significant for hypothyroidism, history of hypercalcemia, hiatal hernia, thoracic aortic ectasia, chronic diastolic CHF, CAD status post CABG, hypertension, chronic atrial fibrillation, mild aortic stenosis, GERD, CKD stage III osteoarthritis depression, insomnia, mixed incontinence urge and stress, who lives alone at home and ambulates with out support comes because of shortness of breath since last night and also nausea and headaches. Patient states since last night she was feeling short of breath with progressive worsening. But currently in the ER she ambulated to bathroom with minimal short of breath. Was having a lot of headache but with IV Tylenol headache is improving. Since yesterday also was having lot of nausea and was not able to eat anything. No vomiting. Has mild cough. No blurred vision. No earache. No runny nose. No sore throat. No difficulty swallowing. No chest pains. No abdominal pain. Normal bowel movements. Normal bladder movements. Denies any hematuria. Currently resting comfortably and hemodynamically stable. Acute UTI Possibly causing her symptoms Started on Rocephin Will follow cultures Shortness of breath CTA chest unremarkable Respiratory bio fire negative Saturating okay on room air will do a dose of iv lasix 20mg one dose as bnp mildly elevated and has history of diastolic chf Nebs as needed Will monitor for now History of chronic diastolic CHF Mild aortic stenosis iv lasix 20mg one dose On torsemide as needed Will monitor Mild elevation of troponin mostly demand ischemia' will follow serial ce. Hypothyroidism On Synthyroid Hypertension On losartan and metoprolol succinate Hyperlipidemia Statin CAD On statin beta-brendan and Eliquis History of chronic atrial fibrillation On metoprolol and Eliquis GERD On Protonix CKD stage III Creatinine 1.2 Around baseline Will follow Depression Insomnia Continue home medications DVT prophylaxis On Eliquis Disposition Med/telemetry Full code. History of Present Illness Chief Complaint: Shortness of breath nausea and headache Primary Care Provider: Gilbert Calloway MD 84-year-old female with past medical history significant for hypothyroidism, history of hypercalcemia, hiatal hernia, thoracic aortic ectasia, chronic diastolic CHF, CAD status post CABG, hypertension, chronic atrial fibrillation, mild aortic stenosis, GERD, CKD stage III osteoarthritis depression, insomnia, mixed incontinence urge and stress, who lives alone at home and ambulates without support comes because of shortness of breath since last night and also nausea and headaches. Patient states since last night she was feeling short of breath with progressive worsening. But currently in the ER she ambulated to bathroom with minimal short of breath. Was having a lot of headache but with IV Tylenol headache is improving. Since yesterday also was having lot of nausea and was not able to eat anything. No vomiting. Has mild cough. No blurred vision. No earache. No runny nose. No sore throat. No difficulty swallowing. No chest pains. No abdominal pain. Normal bowel movements. Normal bladder movements. Denies any hematuria. Currently resting comfortably and hemodynamically stable. Past medical history. As mentioned above Past surgical history. Liposuction. CABG. Colonoscopy. EGD. Reconstruction of the bilateral shoulder joint. Cataracts. Tonsillectomy. Total abdominal hysterectomy with removal of tubes. Total hip replacement Social history. . No smoking. Alcohol occasional. No drug use. Family history. Father had allergies. Mother had CHF. Brother had CAD, dementia. Allergies Allergy/AdvReac Type Severity Reaction Status Date / Time nitroglycerin AdvReac Severe "PROJECTILE Verified 01/29/23 15:15 VOMITTING" ergotamine AdvReac Intermediate vomiting Verified 01/29/23 15:15 Home Medications Medication Instructions Recorded Confirmed Type apixaban 5 mg tablet (Eliquis) 5 mg PO BID 11/03/23 11/03/23 History benzonatate 100 mg capsule 100 mg PO TID PRN Cough 11/03/23 11/03/23 History buspirone 10 mg tablet 10 mg PO BID 11/03/23 11/03/23 History calcitriol 0.25 mcg capsule 0.25 mcg PO UD 11/03/23 11/03/23 History gabapentin 300 mg capsule 300 mg PO TID 11/03/23 11/03/23 History hydroxyzine HCl 10 mg tablet 10 mg PO TID PRN Anxiety 11/03/23 11/03/23 History levothyroxine 100 mcg tablet 100 mcg PO DAILY 11/03/23 11/03/23 History losartan 25 mg tablet 25 mg PO DAILY 11/03/23 11/03/23 History metoprolol succinate 50 mg 50 mg PO DAILY 11/03/23 11/03/23 History tablet,extended release 24 hr pantoprazole 40 mg tablet,delayed 40 mg PO BID 11/03/23 11/03/23 History release rosuvastatin 10 mg tablet 10 mg PO HS 11/03/23 11/03/23 History torsemide 20 mg tablet 20 mg PO DAILY PRN Edema 11/03/23 11/03/23 History trazodone 150 mg tablet 150 mg PO HS 11/03/23 11/03/23 History Past Med/Surg History Problem List (Updated 11/04/23 @ 00:46 by Background Gulshan) Elevated troponin (Acute) Acute UTI (Acute) Weakness (Acute) SOB (shortness of breath) (Acute) Acute UTI History of coronary artery disease (Acute) Precordial chest pain (Acute) Drug noncompliance (Acute) Chest pain (Acute) History of rheumatic fever Bronchospasm CAD (coronary artery disease) Hypophosphatemia Hypomagnesemia Acute on chronic diastolic CHF (congestive heart failure) Pneumonia (Acute) Sepsis due to pneumonia Hyperparathyroidism Hypercalcemia Anticoagulant long-term use Precordial chest pain (Acute) SOB (shortness of breath) (Acute) Diffuse abdominal pain (Acute) Nausea (Acute) (HFpEF) heart failure with preserved ejection fraction Paroxysmal A-fib Chronic heart failure with preserved ejection fraction (HFpEF) Labile hypertension Sinus pause Chest pain, atypical Dizziness Nausea & vomiting Vertigo (Acute) Hypertension (Acute) Headache (Acute) Hypothyroidism BROUSSARD (dyspnea on exertion) Weakness (Acute) KIM (acute kidney injury) (Acute) Hypotension (Acute) Acute on chronic heart failure with preserved ejection fraction (HFpEF) Shortness of breath BROUSSARD (dyspnea on exertion) Dyspnea (Acute) Elevated brain natriuretic peptide (BNP) level (Acute) Bilateral edema of lower extremity (Acute) Diastolic CHF with preserved left ventricular function, NYHA class 2 Persistent atrial fibrillation Greater trochanteric bursitis of right hip Anxiety (Chronic) Chronic osteoarthritis (Chronic) Gastric ulcer (Chronic) GERD (gastroesophageal reflux disease) (Chronic) DJD of left shoulder Dehydration (Acute) Primary osteoarthritis, right shoulder Diarrhea (Acute) Urinary incontinence (Chronic) Syncope and collapse Orthostatic hypotension Arthritis of right shoulder region (Acute) Depression with anxiety (Acute) Somatic dysfunction of sacroiliac joint (Acute) Insomnia (Acute) Edema Acute hip pain (Acute) Ambulatory dysfunction (Acute) Arthritis Spinal stenosis Acid reflux OCCASIONAL Depression History of gastric ulcer 2012 History of blood transfusion 03/23 GASTRIC ULCER Medical History Atrial fibrillation with rapid ventricular response (11/2022) Fall New onset a-fib Moderate mitral regurgitation Mild aortic stenosis Transient ischemic attack (TIA) ~2012>REASON FOR PLAVIX Osteoarthritis Chronic back pain Dyslipidemia Chronic kidney disease stage 3 Hypertension Surgical History 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 History of cardiac cath NO STENTS History of coronary artery bypass graft 1998 (1 VESSEL) S/P epidural steroid injection History of esophagogastroduodenoscopy (EGD) S/p reverse total shoulder arthroplasty RT/LEFT History of abdominoplasty PANNICULECTOMY History of colonoscopy History of arthroplasty of right hip History of arthroplasty of left hip History of hysterectomy with oophorectomy History of arthroplasty of left shoulder History of tonsillectomy and adenoidectomy H/O bilateral salpingo-oophorectomy with hyter Family History Father , age 74 Allergic reaction Mother , 80s CHF (congestive heart failure) Other No family history of adverse response to anesthesia Social History Smoking Status: Never smoker Second Hand Exposure: No; Do You Dip or Chew Tobacco: No; Hx Alcohol Use: Yes Alcohol type: hard liquor Hx Substance Use: No Preferred Language: Slovenian Communication Ability: Effective Visual Impairment: No Limitations Acute Dialysis Nurse Required: No Beliefs That Will Affect Care: None marital status: Single Current Living Situation: Alone Current Living Situation Comment: [facility] How many Children do You have: 0 Other Information That Helps Us Care for You: No Feels Safe at Home: Yes Safety Concerns: Feels Safe At This Time Assistive Devices: None Review of Systems Review of Systems: All systems reviewed & are unremarkable except as noted in HPI & below Physical Exam Physical Exam: General- Not in distress Head- atraumatic Eyes- PERRL. ENT- oropharynx clear Neck- supple, no JVD. Lungs- clear to auscultation no wheezing or crackles Heart- regular rhythm; ESM murmur, no gallop. Abdomen- normal bowel sounds, soft, nontender, no distension Extremities- no pretibial edema, no erythema seen Neuro- alert, oriented PERRL, no facial palsy; no dysarthria; moves extremities Results & Data Results & Data Vital Signs (Past 12 Hours) Vital Signs Temp Pulse Pulse Resp BP BP Pulse Ox 11/03/23 21:20 91 H 19 143/72 H 97 11/03/23 20:51 105 H 171/92 H 11/03/23 19:04 37.1 C 93 H 18 158/108 H 98 11/03/23 19:04 93 H 20 99 11/03/23 17:50 98 11/03/23 17:40 78 11/03/23 17:38 11/03/23 17:38 11/03/23 17:38 36.9 C 94 H 20 174/96 H 100 O2 Del Method 11/03/23 21:20 Room Air 11/03/23 20:51 11/03/23 19:04 Room Air 11/03/23 19:04 Room Air 11/03/23 17:50 Room Air 11/03/23 17:40 11/03/23 17:38 Room Air 11/03/23 17:38 Room Air 11/03/23 17:38 Room Air Diagnostic Findings Laboratory Results WBC 5.07 K/ul (4.8-10.8) 11/03/23 17:47 RBC 4.06 M/uL (4.20-5.40) L 11/03/23 17:47 Hgb 11.6 g/dl (12.0-16.0) L 11/03/23 17:47 Hct 35.8 % (37.0-47.0) L 11/03/23 17:47 MCV 88.2 fL (80.0-100.0) 11/03/23 17:47 MCH 28.6 pg (25.0-34.0) 11/03/23 17:47 MCHC 32.4 g/dL (32.0-36.0) 11/03/23 17:47 RDW Std Deviation 45.9 fL (36.4-46.3) 11/03/23 17:47 RDW Coeff of Howie 14.2 % (11.5-14.5) 11/03/23 17:47 Plt Count 203 K/uL (130-400) 11/03/23 17:47 MPV 9.6 fL (9.4-12.4) 11/03/23 17:47 Immature Gran % (Auto) 0.2 % 11/03/23 17:47 Neut % (Auto) 55.2 % 11/03/23 17:47 Lymph % (Auto) 32.5 % 11/03/23 17:47 Holt % (Auto) 9.9 % 11/03/23 17:47 Eos % (Auto) 1.4 % 11/03/23 17:47 Baso % (Auto) 0.8 % 11/03/23 17:47 Neut # (Auto) 2.80 K/uL (1.40-6.50) 11/03/23 17:47 Lymph # (Auto) 1.65 K/uL (1.20-3.40) 11/03/23 17:47 Holt # (Auto) 0.50 K/uL (0.11-0.59) 11/03/23 17:47 Eos # (Auto) 0.07 K/uL (0.00-0.50) 11/03/23 17:47 Baso # (Auto) 0.04 K/uL (0.00-0.20) 11/03/23 17:47 Immature Gran # (Auto) 0.01 K/uL (0.01-0.20) 11/03/23 17:47 PT 11.8 Seconds (9.0-12.0) 11/03/23 17:47 INR 1.1 (0.9-1.1) 11/03/23 17:47 APTT 25 Seconds (21-31) 11/03/23 17:47 PTT Ratio 0.9 11/03/23 17:47 Sodium 136 mmol/L (136-145) 11/03/23 17:47 Potassium 4.3 mmol/L (3.5-5.1) 11/03/23 17:47 Chloride 104 mmol/L (98-107) 11/03/23 17:47 Carbon Dioxide 23 mmol/L (21-32) 11/03/23 17:47 Anion Gap 9 (3-11) 11/03/23 17:47 BUN 20 mg/dl (6-23) 11/03/23 17:47 Creatinine 1.25 mg/dl (0.6-1.2) H 11/03/23 17:47 Est Cr Clr Drug Dosing 31.2 ml/min 11/03/23 17:47 Est GFR ( Amer) 45.1 ml/min 11/03/23 17:47 Est GFR (Non-Af Amer) 38.9 ml/min 11/03/23 17:47 BUN/Creatinine Ratio 16.0 (10-20) 11/03/23 17:47 Glucose 93 mg/dl (70-99(Fasting)) 11/03/23 17:47 Calcium 10.3 mg/dl (8.6-10.3) 11/03/23 17:47 Magnesium 1.7 mg/dl (1.7-2.4) 11/03/23 17:47 Total Bilirubin 0.9 mg/dl (0.2-1.0) 11/03/23 17:47 AST 15 U/L (13-39) 11/03/23 17:47 ALT 7 U/L (7-52) 11/03/23 17:47 Alkaline Phosphatase 51 U/L (34-104) 11/03/23 17:47 Troponin I High Sens 14.6 pg/ml (0-14) H 11/03/23 20:39 B-Natriuretic Peptide 274 pg/ml (0-100) H 11/03/23 17:47 Total Protein 7.5 gm/dl (6.0-8.3) 11/03/23 17:47 Albumin 4.2 gm/dl (3.4-5.0) 11/03/23 17:47 Globulin 3.3 gm/dl (2.5-4.0) 11/03/23 17:47 Albumin/Globulin Ratio 1.3 (0.9-2) 11/03/23 17:47 Urine Color Yellow 11/03/23 18:03 Urine Appearance Cloudy (Clear) A 11/03/23 18:03 Urine pH 8.5 (4.5-7.5) H 11/03/23 18:03 Ur Specific [place] 1.011 (1.000-1.030) 11/03/23 18:03 Urine Protein Negative (Negative) 11/03/23 18:03 Urine Glucose (UA) Negative (Negative) 11/03/23 18:03 Urine Ketones Trace (Negative) H 11/03/23 18:03 Urine Blood Negative (Negative) 11/03/23 18:03 Urine Nitrite Positive (Negative) A 11/03/23 18:03 Urine Bilirubin Negative (Negative) 11/03/23 18:03 Urine Urobilinogen Negative (Negative) 11/03/23 18:03 Ur Leukocyte Esterase 3+ (Negative) H 11/03/23 18:03 Urine WBC (Auto) >50 /hpf (0-5) H 11/03/23 18:03 Urine RBC (Auto) 0-2 /hpf (0-2) 11/03/23 18:03 U Hyaline Cast (Auto) 0-2 /lpf (0-2) 11/03/23 18:03 U Epithel Cells (Auto) 0-2 /hpf (0-2) 11/03/23 18:03 Urine Bacteria (Auto) 4+ (None Seen) H 11/03/23 18:03 Adenovirus (PCR) Not Detected (NotDetected) 11/03/23 17:47 B. pertussis DNA (PCR) Not Detected (NotDetected) 11/03/23 17:47 B.parapertussis DNA PCR Not Detected (NotDetected) 11/03/23 17:47 C. pneumoniae DNA (PCR) Not Detected (NotDetected) 11/03/23 17:47 Coronavirus OC43 (PCR) Not Detected (NotDetected) 11/03/23 17:47 Coronavirus HKU1 (PCR) Not Detected (NotDetected) 11/03/23 17:47 Coronavirus 229E (PCR) Not Detected (NotDetected) 11/03/23 17:47 SARS-CoV-2 (PCR) Not Detected (NotDetected) 11/03/23 17:47 Coronavirus NL63 (PCR) Not Detected (NotDetected) 11/03/23 17:47 Human Metapneumovir PCR Not Detected (NotDetected) 11/03/23 17:47 Influenza Type A (PCR) Not Detected (NotDetected) 11/03/23 17:47 Influenza Type B (PCR) Not Detected (NotDetected) 11/03/23 17:47 M. pneumoniae (PCR) Not Detected (NotDetected) 11/03/23 17:47 Parainfluenza 1 (PCR) Not Detected (NotDetected) 11/03/23 17:47 Parainfluenza 2 (PCR) Not Detected (NotDetected) 11/03/23 17:47 Parainfluenza 3 (PCR) Not Detected (NotDetected) 11/03/23 17:47 Parainfluenza 4 (PCR) Not Detected (NotDetected) 11/03/23 17:47 RSV (PCR) Not Detected (NotDetected) 11/03/23 17:47 Entero/Rhino (PCR) Not Detected (NotDetected) 11/03/23 17:47 Impressions Chest X-Ray 11/03/23 17:38 XR chest 1V portable CLINICAL HISTORY: Dyspnea TECHNIQUE: Single frontal radiograph of the chest was obtained. Comparison: Comparison is made to rib series 03/14/2023 FINDINGS: Bilateral shoulder arthroplasties again noted. Cardiomegaly is noted. The aortic arch is calcified. The lungs are clear. No evidence of pleural effusion or pneumothorax. IMPRESSION: No acute chest disease. Cardiomegaly is noted. ACT 112: Negative or not required by law. Electronically signed by: Heath Rockwell M.D. 11/03/2023 7:08 PM Chest CTA 11/03/23 18:38 CT angio chest PE protocol CLINICAL HISTORY: PE TECHNIQUE: Multidetector row helical CT of the chest was performed with angiographic protocol. Coronal and sagittal reformations were obtained. Coronal and sagittal MIPS were obtained from the axial data set and were submitted for review. Automated dose lowering techniques and/or adjustment according to patient size were utilized for this exam. CT DOSE: 515.65 mGy.cm Comparison: Comparison is made to CT chest 03/11/2023 FINDINGS: Lungs and pleura: Atelectasis versus scarring is seen in the dependent portions of the lungs. There is a right pleural-based nodule measuring 12 mm with surrounding atelectasis, unchanged, as well as a stable 3 mm nodule in the right middle lobe (series 4 image 57). Heart and pericardium: Cardiomegaly is seen with biatrial enlargement. Vessels: No evidence of pulmonary embolism. Mediastinum and caryn: Unremarkable. Chest wall and lower neck: Unremarkable. Abdomen: A moderate hiatal hernia is seen. Bones: Degenerative changes in the thoracic spine. 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 IMPRESSION: 1. No acute abnormality and in particular no evidence of pulmonary embolus. 2. Stable pulmonary nodules as above. 3. Hepatomegaly with biatrial enlargement. 4. Additional findings as above. ACT 112: Negative or not required by law. Electronically signed by: Heath Rockwell M.D. 11/03/2023 7:50 PM ECG Additional Comments: ECG. Sinus rhythm with first-degree AV block at rate of 84. No acute ST changes seen Code Status & VTE Plan VTE Prophylaxis Plan VTE Prophylaxis will be ordered: Yes
[2023-11-04] MEDS ORDERED: TORSEMIDE 20 MG TAB PO PRN (00:46)
[2023-11-04] MEDS ORDERED: BENZONATATE 100 MG CAPSULE PO PRN (00:46)
[2023-11-04] MEDS: FUROSEMIDE INJ 20 MG/2 ML VIAL IV ONE (01:37)
[2023-11-04] MEDS: traZODone HCL 50 MG TAB PO STA (01:38)
[2023-11-04] MEDS ORDERED: LEVALBUTEROL 1.25 MG/3 ML NEB NEB PRN (05:30)
[2023-11-04] MEDS: MoRPHine SULFATE 2 MG/ML CARP IV STA (05:56)
[2023-11-04 06:08] LABS: Basophils # (auto) 0.04 K/uL (0.00-0.20); Basophils % (auto) 0.8 %; Eosinophils # (auto) 0.14 K/uL (0.00-0.50); Eosinophils % (auto) 2.8 %; Hematocrit (blood only) 30.7 % (37.0-47.0); Hemoglobin 10.3 g/dl (12.0-16.0); Immature Granulocytes # (auto) 0.01 K/uL (0.01-0.20); Immature Granulocytes % (auto) 0.2 %; Lymphocytes # (auto) 2.01 K/uL (1.20-3.40); Mean Corpuscular Hemoglobin 29.1 pg (25.0-34.0); Mean Corpuscular Hgb Conc 33.6 g/dL (32.0-36.0); Mean Corpuscular Volume 86.7 fL (80.0-100.0); Mean Platelet Volume 9.8 fL (9.4-12.4); Monocytes # (auto) 0.75 K/uL (0.11-0.59); Monocytes % (auto) 14.9 %; Neutrophils # (auto) 2.08 K/uL (1.40-6.50); Neutrophils % (auto) 41.3 %; Platelet Count 181 K/uL (130-400); RDW Coefficient of Variation 14.2 % (11.5-14.5); Red Blood Count 3.54 M/uL (4.20-5.40); White Blood Count 5.03 K/ul (4.8-10.8)
[2023-11-04 06:22] LABS: BUN Creatinine Ratio 15.3 (10-20); Calcium 9.7 mg/dl (8.6-10.3); Creatinine Clr Calc Pharmacy 31.1 ml/min; Est GFR (African American) 45.5 ml/min; Est GFR (Non-African American) 39.3 ml/min; Magnesium 1.8 mg/dl (1.7-2.4); Potassium 3.7 mmol/L (3.5-5.1)
[2023-11-04 06:29] LABS: Troponin I High Sensitivity 16.8 pg/ml (0-14)
[2023-11-04] MEDS: LEVOTHYROXINE SODIUM 100 MCG TABLET PO SCH (06:36)
[2023-11-04] MEDS: ACETAMINOPHEN 325 MG TAB PO PRN (07:58)
[2023-11-04] MEDS: busPIRone 5 MG TAB PO SCH (07:59)
[2023-11-04] MEDS: APIXABAN 5 MG TABLET PO SCH (07:59)
[2023-11-04] MEDS: PANTOprazole 40 MG TAB PO SCH (08:00)
[2023-11-04] MEDS: LOSARTAN POTASSIUM 25 MG TAB PO SCH (08:00)
[2023-11-04] MEDS: METOPROLOL SUCC 50MG EXT REL TAB PO SCH (08:00)
[2023-11-04] MEDS: GABAPENTIN 300 MG CAP PO SCH (08:00)
[2023-11-04] MEDS: ONDANSETRON INJ 2 MG/ML 2 ML VIAL IV PRN (10:52)
--- NOTE | 2023-11-04 15:33 | Hospitalist Progress Note ---
Date of Service November 04, 2023 Assessment & Plan (1) Acute UTI: Plan: Ms. Howard is an 84-year-old female with past medical history significant for hypothyroidism, history of hypercalcemia, hiatal hernia, thoracic aortic ectasia, chronic diastolic CHF, CAD status post CABG, hypertension, chronic atrial fibrillation, mild aortic stenosis, GERD, CKD stage III osteoarthritis depression, insomnia, mixed incontinence urge and stress, who lives alone at home and ambulates without support admitted for concern of acute cystitis. Patient with shortness of breath since last night and also nausea and headaches, which have resolved with a dose of IV diuretic and IV abx. Patient subjectively improving. #General weakness reports feeling less than baseline, usually does not require ambulatory aid PT/OT #Acute uncomplicated Possibly causing her symptoms UA with 4+bacteria continue on Rocephin Will follow cultures #Acute on chronic heart failure with preserved EF Elevated BNP CTA chest unremarkable Respiratory bio fire negative Saturating okay on room air Monitor need for additional diuretic #CAD s/p CABG #Mild elevation of troponin likely demand iso known cardiac disease/UTI/mild exacerbation responsive to IV diuteric Downtrending, no active ACS Continue metoprolol Monitor on tele #Hypothyroidism On Synthroid #Hypertension On losartan and metoprolol succinate #Hyperlipidemia Statin #CAD On statin beta-brendan and Eliquis #chronic atrial fibrillation On metoprolol and Eliquis #GERD On Protonix #Chronic normocytic anemia baseline hgb 8-10, likely multifactorial No recent anemia labs, will order for am #CKD stage III Creatinine baseline fluctuates Around baseline #Depression #Insomnia Continue home medications DVT prophylaxis On Eliquis Disposition Med/telemetry Full code. Admission and Anticipated Discharge Date Admission Date: November 04, 2023 Subjective Evaluated patient at bedside Patient initially sleeping but easily awakens and reported notable Physical Exam Constitutional: WD/WN, vitals as above Respiratory: normal respiratory effort, lungs clear to auscultation Cardiovascular: RRR, no murmur, no edema Gastrointestinal (Abdomen): normal bowel sounds, soft, nontender, no hepatosplenomegaly Results & Data Results & Data Vital Signs (Past 12 Hours) Vital Signs Temp Pulse Pulse Resp BP Pulse Ox O2 Del Method 11/04/23 13:01 78 11/04/23 11:41 36.7 C 76 16 102/60 94 Room Air 11/04/23 07:58 36.9 C 79 16 138/79 96 Room Air 11/04/23 05:49 80 11/04/23 03:50 36.5 C 90 16 159/68 H 95 Room Air Laboratory Results Short CBC 11/03/23 11/04/23 Range/Units 17:47 05:24 WBC 5.07 5.03 (4.8-10.8) K/ul Hgb 11.6 L 10.3 L (12.0-16.0) g/dl Hct 35.8 L 30.7 L (37.0-47.0) % Plt Count 203 181 (130-400) K/uL BMP 11/03/23 11/04/23 17:47 05:24 Sodium 136 138 Potassium 4.3 3.7 Chloride 104 107 Carbon Dioxide 23 24 BUN 20 19 Creatinine 1.25 H 1.24 H Glucose 93 93 Calcium 10.3 9.7 Liver Function 11/03/23 Range/Units 17:47 Total Bilirubin 0.9 (0.2-1.0) mg/dl AST 15 (13-39) U/L ALT 7 (7-52) U/L Alkaline Phosphatase 51 (34-104) U/L Albumin 4.2 (3.4-5.0) gm/dl Urine 11/03/23 Range/Units 18:03 Urine Color Yellow Urine Appearance Cloudy A (Clear) Urine pH 8.5 H (4.5-7.5) Ur Specific [place] 1.011 (1.000-1.030) Urine Protein Negative (Negative) Urine Glucose (UA) Negative (Negative) Medications Administered Home Medications Medication Instructions Recorded Confirmed Last Taken apixaban 5 mg tablet (Eliquis) 5 mg PO BID 11/03/23 11/03/23 Unknown benzonatate 100 mg capsule 100 mg PO TID PRN Cough 11/03/23 11/03/23 Unknown buspirone 10 mg tablet 10 mg PO BID 11/03/23 11/03/23 Unknown calcitriol 0.25 mcg capsule 0.25 mcg PO UD 11/03/23 11/03/23 Unknown gabapentin 300 mg capsule 300 mg PO TID 11/03/23 11/03/23 Unknown hydroxyzine HCl 10 mg tablet 10 mg PO TID PRN Anxiety 11/03/23 11/03/23 Unknown levothyroxine 100 mcg tablet 100 mcg PO DAILY 11/03/23 11/03/23 Unknown losartan 25 mg tablet 25 mg PO DAILY 11/03/23 11/03/23 Unknown metoprolol succinate 50 mg 50 mg PO DAILY 11/03/23 11/03/23 Unknown tablet,extended release 24 hr pantoprazole 40 mg tablet,delayed 40 mg PO BID 11/03/23 11/03/23 Unknown release rosuvastatin 10 mg tablet 10 mg PO HS 11/03/23 11/03/23 Unknown torsemide 20 mg tablet 20 mg PO DAILY PRN Edema 11/03/23 11/03/23 Unknown trazodone 150 mg tablet 150 mg PO HS 11/03/23 11/03/23 Unknown Active Medications Generic Name Dose Route Start Last Admin Trade Name Freq PRN Reason Stop Dose Admin Acetaminophen 650 mg 11/04/23 00:46 11/04/23 07:58 Acetaminophen 325 Mg Tab PO 12/04/23 00:45 650 mg Q4H PRN Administration Pain or Fever Apixaban 5 mg 11/04/23 09:00 11/04/23 07:59 Apixaban 5 Mg Tablet PO 12/04/23 08:59 5 mg BID YAN Administration Buspirone HCl 10 mg 11/04/23 09:00 11/04/23 07:59 Buspirone 5 Mg Tab PO 12/04/23 08:59 10 mg BID YAN Administration Gabapentin 300 mg 11/04/23 09:00 11/04/23 14:34 Gabapentin 300 Mg Cap PO 12/04/23 08:59 300 mg TID YAN Administration Levothyroxine Sodium 100 mcg 11/04/23 06:30 11/04/23 06:36 Levothyroxine Sodium 100 Mcg Tablet PO 12/04/23 06:29 100 mcg DAILYBB YAN Administration Losartan Potassium 25 mg 11/04/23 09:00 11/04/23 08:00 Losartan Potassium 25 Mg Tab PO 12/04/23 08:59 25 mg DAILY YAN Administration Metoprolol Succinate 50 mg 11/04/23 09:00 11/04/23 08:00 Metoprolol Succ 50mg Ext Rel Tab PO 12/04/23 08:59 50 mg DAILY YAN Administration Ondansetron HCl 4 mg 11/04/23 00:46 11/04/23 10:52 Ondansetron Inj 2 Mg/Ml 2 Ml Vial IV 12/04/23 00:45 4 mg Q6H PRN Administration Nausea Pantoprazole Sodium 40 mg 11/04/23 09:00 11/04/23 08:00 Pantoprazole 40 Mg Tab PO 12/04/23 08:59 40 mg BID YAN Administration
[2023-11-04] MEDS: traMADol HCL 50 MG TABLET PO PRN (18:34)
[2023-11-04] MEDS: traZODone HCL 50 MG TAB PO SCH (20:38)
[2023-11-04] MEDS: ROSUVASTATIN CALCIUM 10 MG TAB PO SCH (20:38)
[2023-11-04] MEDS: hydrOXYzine HCl 10 MG TAB PO PRN (20:39)
[2023-11-04] MEDS: cefTRIAXone SODIUM 2,000 MG/50 ML BAG IV SCH (20:51)
[2023-11-05 06:19] LABS: Hematocrit (blood only) 32.2 % (37.0-47.0); Hemoglobin 10.4 g/dl (12.0-16.0); Mean Corpuscular Hemoglobin 28.4 pg (25.0-34.0); Mean Corpuscular Hgb Conc 32.3 g/dL (32.0-36.0); Mean Platelet Volume 10.3 fL (9.4-12.4); Platelet Count 160 K/uL (130-400); RDW Coefficient of Variation 14.4 % (11.5-14.5); RDW Standard Deviation 46.4 fL (36.4-46.3); Red Blood Count 3.66 M/uL (4.20-5.40); White Blood Count 4.19 K/ul (4.8-10.8)
[2023-11-05 06:37] LABS: BUN Creatinine Ratio 12.1 (10-20); Calcium 9.4 mg/dl (8.6-10.3); Creatinine Clr Calc Pharmacy 27.3 ml/min; Est GFR (Non-African American) 33.6 ml/min; Potassium 4.3 mmol/L (3.5-5.1)
[2023-11-05 06:58] LABS: Folate (Folic Acid),Ser orPlas 11.59 ng/ml (>5.38)
[2023-11-05 08:37] LABS: Thyroid Stimulating Hormone 0.506 uIu/ml (0.300-4.500)
[2023-11-05] MEDS: CALCITRIOL 0.25 MCG CAPSULE PO SCH (08:51)
--- NOTE | 2023-11-05 14:32 | Hospitalist Progress Note ---
Date of Service November 05, 2023 Assessment & Plan (1) Acute UTI: Plan: Ms. Howard is an 84-year-old female with past medical history significant for hypothyroidism, history of hypercalcemia, hiatal hernia, thoracic aortic ectasia, chronic diastolic CHF, CAD status post CABG, hypertension, chronic atrial fibrillation, mild aortic stenosis, GERD, CKD stage III osteoarthritis depression, insomnia, mixed incontinence urge and stress, who lives alone at home and ambulates without support admitted for concern of acute cystitis. Patient with shortness of breath since last night and also nausea and headaches, which have resolved with a dose of IV diuretic and IV abx. Patient subjectively improving. #General weakness reports feeling less than baseline, usually does not require ambulatory aid PT/OT #Acute uncomplicated Possibly causing her symptoms UA with 4+bacteria still febrile after CTX will broaden to cefepime #Acute on chronic heart failure with preserved EF Elevated BNP CTA chest unremarkable Respiratory bio fire negative Saturating okay on room air Monitor need for additional diuretic #CAD s/p CABG #Mild elevation of troponin likely demand iso known cardiac disease/UTI/mild exacerbation responsive to IV diuteric Downtrending, no active ACS Continue metoprolol Monitor on tele #Hypothyroidism On Synthroid #Hypertension On losartan and metoprolol succinate #Hyperlipidemia Statin #CAD On statin beta-brendan and Eliquis #chronic atrial fibrillation On metoprolol and Eliquis #GERD On Protonix #Chronic normocytic anemia baseline hgb 8-10, likely multifactorial No recent anemia labs, will order for am #CKD stage III Creatinine baseline fluctuates Around baseline #Depression #Insomnia Continue home medications DVT prophylaxis On Eliquis Disposition Med/telemetry Full code. Admission and Anticipated Discharge Date Admission Date: November 04, 2023 Subjective Reports feeling fatigued Low grade fever noted Denies any localizing symptoms denies chest pain, palpitations or other acute concerns outside of weakness Physical Exam Constitutional: WD/WN, vitals as above Respiratory: normal respiratory effort, lungs clear to auscultation Cardiovascular: tachcardic Results & Data Results & Data Vital Signs (Past 12 Hours) Vital Signs Temp Pulse Pulse Resp BP BP Pulse Ox 11/05/23 11:55 37.9 C H 91 H 18 119/72 95 11/05/23 08:05 38.1 C H 91 H 17 149/78 H 93 11/05/23 07:11 94 H 11/05/23 03:36 37.6 C H 102 H 20 161/80 H 93 O2 Del Method 11/05/23 11:55 Room Air 11/05/23 08:05 Room Air 11/05/23 07:11 11/05/23 03:36 Room Air Laboratory Results Short CBC 11/05/23 Range/Units 05:29 WBC 4.19 L (4.8-10.8) K/ul Hgb 10.4 L (12.0-16.0) g/dl Hct 32.2 L (37.0-47.0) % Plt Count 160 (130-400) K/uL BMP 11/05/23 05:29 Sodium 134 L Potassium 4.3 Chloride 103 Carbon Dioxide 25 BUN 17 Creatinine 1.41 H Glucose 100 H Calcium 9.4 Medications Administered Home Medications Medication Instructions Recorded Confirmed Last Taken apixaban 5 mg tablet (Eliquis) 5 mg PO BID 11/03/23 11/03/23 Unknown benzonatate 100 mg capsule 100 mg PO TID PRN Cough 11/03/23 11/03/23 Unknown buspirone 10 mg tablet 10 mg PO BID 11/03/23 11/03/23 Unknown calcitriol 0.25 mcg capsule 0.25 mcg PO UD 11/03/23 11/03/23 Unknown gabapentin 300 mg capsule 300 mg PO TID 11/03/23 11/03/23 Unknown hydroxyzine HCl 10 mg tablet 10 mg PO TID PRN Anxiety 11/03/23 11/03/23 Unknown levothyroxine 100 mcg tablet 100 mcg PO DAILY 11/03/23 11/03/23 Unknown losartan 25 mg tablet 25 mg PO DAILY 11/03/23 11/03/23 Unknown metoprolol succinate 50 mg 50 mg PO DAILY 11/03/23 11/03/23 Unknown tablet,extended release 24 hr pantoprazole 40 mg tablet,delayed 40 mg PO BID 11/03/23 11/03/23 Unknown release rosuvastatin 10 mg tablet 10 mg PO HS 11/03/23 11/03/23 Unknown torsemide 20 mg tablet 20 mg PO DAILY PRN Edema 11/03/23 11/03/23 Unknown trazodone 150 mg tablet 150 mg PO HS 11/03/23 11/03/23 Unknown Active Medications Generic Name Dose Route Start Last Admin Trade Name Freq PRN Reason Stop Dose Admin Acetaminophen 650 mg 11/04/23 00:46 11/05/23 11:50 Acetaminophen 325 Mg Tab PO 12/04/23 00:45 650 mg Q4H PRN Administration Pain or Fever Apixaban 5 mg 11/04/23 09:00 11/05/23 08:48 Apixaban 5 Mg Tablet PO 12/04/23 08:59 5 mg BID YAN Administration Buspirone HCl 10 mg 11/04/23 09:00 11/05/23 08:48 Buspirone 5 Mg Tab PO 12/04/23 08:59 10 mg BID YAN Administration Calcitriol 0.25 mcg 11/05/23 09:00 11/05/23 08:51 Calcitriol 0.25 Mcg Capsule PO 12/05/23 08:59 0.25 mcg [email or web address] YAN Administration Gabapentin 300 mg 11/04/23 09:00 11/05/23 13:41 Gabapentin 300 Mg Cap PO 12/04/23 08:59 300 mg TID YAN Administration Hydroxyzine HCl 10 mg 11/04/23 00:46 11/04/23 20:39 Hydroxyzine Hcl 10 Mg Tab PO 12/04/23 00:45 10 mg TID PRN Administration Anxiety Levothyroxine Sodium 100 mcg 11/04/23 06:30 11/05/23 05:42 Levothyroxine Sodium 100 Mcg Tablet PO 12/04/23 06:29 100 mcg DAILYBB YAN Administration Losartan Potassium 25 mg 11/04/23 09:00 11/05/23 08:51 Losartan Potassium 25 Mg Tab PO 12/04/23 08:59 25 mg DAILY YAN Administration Metoprolol Succinate 50 mg 11/04/23 09:00 11/05/23 08:51 Metoprolol Succ 50mg Ext Rel Tab PO 12/04/23 08:59 50 mg DAILY YAN Administration Ondansetron HCl 4 mg 11/04/23 00:46 11/04/23 10:52 Ondansetron Inj 2 Mg/Ml 2 Ml Vial IV 12/04/23 00:45 4 mg Q6H PRN Administration Nausea Pantoprazole Sodium 40 mg 11/04/23 09:00 11/05/23 08:48 Pantoprazole 40 Mg Tab PO 12/04/23 08:59 40 mg BID YAN Administration Rosuvastatin Calcium 10 mg 11/04/23 21:00 11/04/23 20:38 Rosuvastatin Calcium 10 Mg Tab PO 12/04/23 20:59 10 mg HS YAN Administration Tramadol HCl 25 mg 11/04/23 18:21 11/05/23 13:41 Tramadol Hcl 50 Mg Tablet PO 12/04/23 18:20 25 mg Q8H PRN Administration Severe Pain (Scale 7, 8, 9,10) Trazodone HCl 150 mg 11/04/23 21:00 11/04/23 20:38 Trazodone Hcl 50 Mg Tab PO 12/04/23 20:59 150 mg HS YAN Administration
[2023-11-05] MEDS: SODIUM CHLORIDE 0.9% 1,000 ML IV SCH (15:57)
[2023-11-05] MEDS: CEFEPIME 2,000 MG in SYRINGE 0 ML IV SCH (15:58)
--- NOTE | 2023-11-05 19:16 | Electrocardiogram Report ---
Test Reason : Blood Pressure : */* mmHG Vent. Rate : 87 BPM Atrial Rate : 87 BPM P-R Int : 256 ms QRS Dur : 78 ms QT Int : 340 ms P-R-T Axes : 58 21 40 degrees QTcB Int : 409 ms Sinus rhythm with 1st degree A-V block Anteroseptal infarct , age undetermined Abnormal ECG When compared with ECG of 03-Nov-2023 17:39, (unconfirmed) Anteroseptal infarct is now Present Nonspecific T wave abnormality now evident in Anterior leads Confirmed by Venu Seay ([id number]) on 11/05/2023 7:15:48 PM Referred By: REFERRED SELF Confirmed By: Venu Seay
[2023-11-05] MEDS: AZITHROMYCIN 500 MG in DEXTROSE 5% 250 ML IV SCH (21:12)
--- NOTE | 2023-11-06 05:40 | Electrocardiogram Report ---
Test Reason : Blood Pressure : */* mmHG Vent. Rate : 84 BPM Atrial Rate : 84 BPM P-R Int : 278 ms QRS Dur : 78 ms QT Int : 352 ms P-R-T Axes : 74 1 2 degrees QTcB Int : 415 ms Sinus rhythm with 1st degree A-V block Otherwise normal ECG When compared with ECG of 13-Mar-2023 05:57, Premature supraventricular complexes are no longer Present Confirmed by Venu Seay ([id number]) on 11/06/2023 5:39:25 AM Referred By: Confirmed By: Venu Seay
[2023-11-06 06:03] LABS: Hematocrit (blood only) 34.1 % (37.0-47.0); Hemoglobin 10.6 g/dl (12.0-16.0); Mean Corpuscular Hemoglobin 29.1 pg (25.0-34.0); Mean Corpuscular Hgb Conc 31.1 g/dL (32.0-36.0); Mean Corpuscular Volume 93.7 fL (80.0-100.0); Mean Platelet Volume 10.6 fL (9.4-12.4); Platelet Count 107 K/uL (130-400); RDW Coefficient of Variation 14.9 % (11.5-14.5); RDW Standard Deviation 51.1 fL (36.4-46.3); Red Blood Count 3.64 M/uL (4.20-5.40); White Blood Count 4.27 K/ul (4.8-10.8)
[2023-11-06 06:46] LABS: Albumin Level 3.4 gm/dl (3.4-5.0); Bilirubin,Total 0.3 mg/dl (0.2-1.0); Calcium 8.6 mg/dl (8.6-10.3); Magnesium 1.7 mg/dl (1.7-2.4); Potassium 4.1 mmol/L (3.5-5.1)
[2023-11-06 06:52] LABS: Albumin Globulin Ratio 1.3 (0.9-2); Est GFR (African American) 36.2 ml/min; Est GFR (Non-African American) 31.2 ml/min; Globulin 2.7 gm/dl (2.5-4.0); Phosphorus 3.4 mg/dl (2.5-4.9); Total Protein 6.1 gm/dl (6.0-8.3)
--- NOTE | 2023-11-06 11:10 | Hospitalist Progress Note ---
Date of Service November 06, 2023 Assessment & Plan (1) Acute UTI: Plan: Ms. Howard is an 84-year-old female with past medical history significant for hypothyroidism, history of hypercalcemia, hiatal hernia, thoracic aortic ectasia, chronic diastolic CHF, CAD status post CABG, hypertension, chronic atrial fibrillation, mild aortic stenosis, GERD, CKD stage III osteoarthritis depression, insomnia, mixed incontinence urge and stress, who lives alone at home and ambulates without support admitted for concern of acute cystitis. Patient with shortness of breath since last night and also nausea and headaches, which have resolved with a dose of IV diuretic and IV abx. Patient seemingly improved based on interactivity in exam. Patient doesn't appear overtly toxic. Hard to localize any symptoms as patient is poor historian and often goes in circular discussion. AOx3 however. Will continue course #General weakness reports feeling less than baseline, usually does not require ambulatory aid PT/OT recommends SNF #Fevers #Pancytopenia Patient with persistent low grade. Patient reports she just thinks "she is dying" and cannot give an localizing symptoms. Procal is 0.09, but patient with history of severe pneumonias Biofire negative Will get stool antigen as patient reports 1 episode of loose stool Will continue with Azithromycin and Cefepime Monitor oxygenation Lyme screen Repeat CBC in am #Acute uncomplicated Possibly causing her symptoms UA with 4+bacteria still febrile after CTX will broaden to cefepime and azithromycin given hx of severe pneumonias #Acute on chronic heart failure with preserved EF Elevated BNP CTA chest unremarkable Respiratory bio fire negative Saturating okay on room air Monitor need for additional diuretic Given gentle fluid 2/2 hypotension, poor po intake #CAD s/p CABG #Mild elevation of troponin likely demand iso known cardiac disease/UTI/mild exacerbation responsive to IV diuteric Downtrending, no active ACS Continue metoprolol hold losartan Monitor on tele #Hypothyroidism On Synthroid TSH WNL #Hypotensive intermittently #Hypertension On losartan and metoprolol succinate hold losartan gentle fluids #Hyperlipidemia Statin #CAD On statin beta-brendan and Eliquis #chronic atrial fibrillation On metoprolol and Eliquis #GERD On Protonix #Chronic normocytic anemia baseline hgb 8-10, likely multifactorial No recent anemia labs, will order for am ferritin 65, consider IV v po when infection r/o #CKD stage III Creatinine baseline fluctuates Around baseline #Depression #Insomnia Continue home medications DVT prophylaxis On Eliquis Disposition Med/telemetry Full code. Admission and Anticipated Discharge Date Admission Date: November 04, 2023 Subjective Better than day prior, still with intermittent low grade fever noted Patient states that she is sure she is dying, but when asked why she feels this way she is unable to explain. She reports an episode of loose stool, but otherwise no other clear issues, she denies feeling febrile She endorses poor appetite all the day prior, but improved marginally today Physical Exam Constitutional: WD/WN, vitals as above Respiratory: regularly, tachy Cardiovascular: RRR, no murmur, no edema Gastrointestinal (Abdomen): normal bowel sounds, soft, nontender, no hepatosplenomegaly Results & Data Results & Data Vital Signs (Past 12 Hours) Vital Signs Temp Pulse Pulse Resp BP BP Pulse Ox 11/06/23 07:43 37.6 C H 109 H 18 92/58 L 91 11/06/23 05:53 72 11/06/23 02:53 36.6 C 89 18 152/79 H 90 11/05/23 23:03 93 H O2 Del Method 11/06/23 07:43 Room Air 11/06/23 05:53 11/06/23 02:53 Room Air 11/05/23 23:03 Laboratory Results Short CBC 11/06/23 Range/Units 05:24 WBC 4.27 L (4.8-10.8) K/ul Hgb 10.6 L (12.0-16.0) g/dl Hct 34.1 L (37.0-47.0) % Plt Count 107 L (130-400) K/uL BMP 11/06/23 05:24 Sodium 134 L Potassium 4.1 Chloride 107 Carbon Dioxide 20 L BUN 24 H Creatinine 1.50 H Glucose 88 Calcium 8.6 Liver Function 11/06/23 Range/Units 05:24 Total Bilirubin 0.3 (0.2-1.0) mg/dl AST 17 (13-39) U/L ALT 6 L (7-52) U/L Alkaline Phosphatase 36 (34-104) U/L Albumin 3.4 (3.4-5.0) gm/dl Medications Administered Home Medications Medication Instructions Recorded Confirmed Last Taken apixaban 5 mg tablet (Eliquis) 5 mg PO BID 11/03/23 11/03/23 Unknown benzonatate 100 mg capsule 100 mg PO TID PRN Cough 11/03/23 11/03/23 Unknown buspirone 10 mg tablet 10 mg PO BID 11/03/23 11/03/23 Unknown calcitriol 0.25 mcg capsule 0.25 mcg PO UD 11/03/23 11/03/23 Unknown gabapentin 300 mg capsule 300 mg PO TID 11/03/23 11/03/23 Unknown hydroxyzine HCl 10 mg tablet 10 mg PO TID PRN Anxiety 11/03/23 11/03/23 Unknown levothyroxine 100 mcg tablet 100 mcg PO DAILY 11/03/23 11/03/23 Unknown losartan 25 mg tablet 25 mg PO DAILY 11/03/23 11/03/23 Unknown metoprolol succinate 50 mg 50 mg PO DAILY 11/03/23 11/03/23 Unknown tablet,extended release 24 hr pantoprazole 40 mg tablet,delayed 40 mg PO BID 11/03/23 11/03/23 Unknown release rosuvastatin 10 mg tablet 10 mg PO HS 11/03/23 11/03/23 Unknown torsemide 20 mg tablet 20 mg PO DAILY PRN Edema 11/03/23 11/03/23 Unknown trazodone 150 mg tablet 150 mg PO HS 11/03/23 11/03/23 Unknown Active Medications Generic Name Dose Route Start Last Admin Trade Name Donny PRN Reason Stop Dose Admin Acetaminophen 650 mg 11/04/23 00:46 11/05/23 20:19 Acetaminophen 325 Mg Tab PO 12/04/23 00:45 650 mg Q4H PRN Administration Pain or Fever Apixaban 5 mg 11/04/23 09:00 11/06/23 08:46 Apixaban 5 Mg Tablet PO 12/04/23 08:59 5 mg BID YAN Administration Buspirone HCl 10 mg 11/04/23 09:00 11/06/23 08:46 Buspirone 5 Mg Tab PO 12/04/23 08:59 10 mg BID YAN Administration Calcitriol 0.25 mcg 11/05/23 09:00 11/05/23 08:51 Calcitriol 0.25 Mcg Capsule PO 12/05/23 08:59 0.25 mcg [email or web address] YAN Administration Gabapentin 300 mg 11/04/23 09:00 11/06/23 08:47 Gabapentin 300 Mg Cap PO 12/04/23 08:59 300 mg TID YAN Administration Hydroxyzine HCl 10 mg 11/04/23 00:46 11/05/23 20:18 Hydroxyzine Hcl 10 Mg Tab PO 12/04/23 00:45 10 mg TID PRN Administration Anxiety Azithromycin 500 mg/ Dextrose 255 mls @ 125 mls/hr 11/05/23 21:00 11/05/23 23:51 IV 11/07/23 20:59 Infused Q24H YAN Infusion Levothyroxine Sodium 100 mcg 11/04/23 06:30 11/06/23 05:27 Levothyroxine Sodium 100 Mcg Tablet PO 12/04/23 06:29 100 mcg DAILYBB YAN Administration Losartan Potassium 25 mg 11/04/23 09:00 11/06/23 08:47 Losartan Potassium 25 Mg Tab PO 12/04/23 08:59 25 mg DAILY YAN Administration Metoprolol Succinate 50 mg 11/04/23 09:00 11/06/23 08:48 Metoprolol Succ 50mg Ext Rel Tab PO 12/04/23 08:59 50 mg DAILY YAN Administration Ondansetron HCl 4 mg 11/04/23 00:46 11/05/23 19:14 Ondansetron Inj 2 Mg/Ml 2 Ml Vial IV 12/04/23 00:45 4 mg Q6H PRN Administration Nausea Pantoprazole Sodium 40 mg 11/04/23 09:00 11/06/23 08:48 Pantoprazole 40 Mg Tab PO 12/04/23 08:59 40 mg BID YAN Administration Rosuvastatin Calcium 10 mg 11/04/23 21:00 11/05/23 20:18 Rosuvastatin Calcium 10 Mg Tab PO 12/04/23 20:59 10 mg HS YAN Administration Tramadol HCl 25 mg 11/04/23 18:21 11/05/23 13:41 Tramadol Hcl 50 Mg Tablet PO 12/04/23 18:20 25 mg Q8H PRN Administration Severe Pain (Scale 7, 8, 9,10) Trazodone HCl 150 mg 11/04/23 21:00 11/05/23 20:19 Trazodone Hcl 50 Mg Tab PO 12/04/23 20:59 150 mg HS YAN Administration
[2023-11-06] MEDS: SODIUM CHLORIDE 0.9% 1,000 ML IV SCH (12:08)
[2023-11-06] MEDS: ADVANCED PROBIOTIC 625 MG CAPSULE PO SCH (12:09)
[2023-11-06] MEDS: CEFEPIME 1,000 MG in SYRINGE 0 ML IV SCH (15:26)
--- NOTE | 2023-11-06 16:13 | Electrocardiogram Report ---
Test Reason : Blood Pressure : */* mmHG Vent. Rate : 72 BPM Atrial Rate : 72 BPM P-R Int : 276 ms QRS Dur : 74 ms QT Int : 376 ms P-R-T Axes : 74 13 33 degrees QTcB Int : 411 ms Sinus rhythm with 1st degree A-V block Old Anteroseptal infarct (cited on or before 05-Nov-2023) Abnormal ECG When compared with ECG of 05-Nov-2023 11:57, No significant change was found Confirmed by Noah Adams ([id number]) on 11/06/2023 4:12:49 PM Referred By: REFERRED SELF Confirmed By: Noah Adams
[2023-11-06 16:23] LABS: BUN Creatinine Ratio 15.2 (10-20); Calcium 8.6 mg/dl (8.6-10.3); Creatinine Clr Calc Pharmacy 21.9 ml/min; Est GFR (African American) 29.4 ml/min; Est GFR (Non-African American) 25.4 ml/min; Potassium 4.2 mmol/L (3.5-5.1)
[2023-11-06] MEDS: COLCHICINE 0.6 MG TAB PO ONE (16:39)
--- NOTE | 2023-11-06 16:39 | Cardiology Consultation ---
Date of Consultation November 06, 2023 Assessment & Plan (1) Mobitz type 1 second degree AV block: Asymptomatic episodes of Mobitz type I second-degree AV block with brief pauses, would recommend reducing metoprolol succinate from 50 mg daily to 37.5 mg daily, reluctant to reduce too far given her history of atrial fibrillation. Continue on telemetry while she is hospitalized. (2) Costochondritis: Longstanding. In the past, have used nonsteroidals if her symptoms are more severe, but this requires interrupting her apixaban. Since she has remained sinus, could pursue this avenue if her symptoms increase, but currently they are minor and she was not interested in aggressive treatment of her apparent costochondritis. (3) CAD (coronary artery disease): . (4) S/P CABG x 1: Has SANDOVAL graft, has not demonstrated evidence of significant myocardial ischemia in some time. No need for aspirin since she is on apixaban chronically. (5) Anxiety: Longstanding, patient reassured that her cardiac status was currently favorable. (6) (HFpEF) heart failure with preserved ejection fraction: She has a history of mild volume overload in the past and takes occasional torsemide. She was given a dose for her "elevated BNP" earlier this admission, but the BNP is actually at the lower end of her usual range, her chest x-ray and CT showed no evidence of failure, and she appears euvolemic to mildly hypovolemic currently. Given increased creatinine, would hold on further diuretics in the absence of more clear-cut evidence for heart failure. Patient well-known to me but has been sporadic with outpatient follow-up (last seen 1 year ago). I will arrange for office follow-up with me approximately 1 month after hospital discharge. Plan Longstanding, reassured patient. History of Present Illness Reason for Consultation: chest pain, ?junctional rythm, hx of chronic cp Requesting Physician: Ann Marie Ba MD Attending Physician: Ann Marie Ba MD History of Present Illness 84-year-old woman well-known to me from outpatient care with history of CAD (SANDOVAL to LAD CABG 1998), mild to moderate valvular disease (/MR/TR), paroxysmal atrial fibrillation (metoprolol/apixaban), and prior mild HFpEF who was admitted November 03, 2023 with multiple nonspecific complaints, ultimately many of which were felt secondary to urinary tract infection. Of note, she was hospitalized June 2022 with atypical chest pain and negative workup. She did have recurrent atrial fibrillation November 2022, but remained in sinus rhythm during her January 2023 hospitalization and during subsequent admissions. She did have brief tachycardia on 11/04/2023, but her heart rate has generally been controlled and multiple ECGs have shown only sinus rhythm. Recent telemetry did show Mobitz type I second-degree AV block with brief pauses. She has longstanding atypical chest pain, currently she notes left chondrocostal junction focal tenderness in the region that can cause sharp pain lasting up to 1 minute, no associated symptoms, similar to prior episodes and not severe. Multiple ECGs show sinus rhythm without ST deviation. Troponin values have ranged from 14-16 and are very flat and significantly lower than during a January 2023 hospitalization for pneumonia. At recent baseline, she notes her usual insomnia but denies any orthopnea, PND, or dyspnea on exertion. No recent weight change or ankle edema. At the time of my evaluation this afternoon, she was comfortable and had no somatic complaints. Allergies Allergy/AdvReac Type Severity Reaction Status Date / Time nitroglycerin AdvReac Severe "PROJECTILE Verified 01/29/23 15:15 VOMITTING" ergotamine AdvReac Intermediate vomiting Verified 01/29/23 15:15 Home Medications Medication Instructions Recorded Confirmed Type apixaban 5 mg tablet (Eliquis) 5 mg PO BID 11/03/23 11/03/23 History benzonatate 100 mg capsule 100 mg PO TID PRN Cough 11/03/23 11/03/23 History buspirone 10 mg tablet 10 mg PO BID 11/03/23 11/03/23 History calcitriol 0.25 mcg capsule 0.25 mcg PO UD 11/03/23 11/03/23 History gabapentin 300 mg capsule 300 mg PO TID 11/03/23 11/03/23 History hydroxyzine HCl 10 mg tablet 10 mg PO TID PRN Anxiety 11/03/23 11/03/23 History levothyroxine 100 mcg tablet 100 mcg PO DAILY 11/03/23 11/03/23 History losartan 25 mg tablet 25 mg PO DAILY 11/03/23 11/03/23 History metoprolol succinate 50 mg 50 mg PO DAILY 11/03/23 11/03/23 History tablet,extended release 24 hr pantoprazole 40 mg tablet,delayed 40 mg PO BID 11/03/23 11/03/23 History release rosuvastatin 10 mg tablet 10 mg PO HS 11/03/23 11/03/23 History torsemide 20 mg tablet 20 mg PO DAILY PRN Edema 11/03/23 11/03/23 History trazodone 150 mg tablet 150 mg PO HS 11/03/23 11/03/23 History Patient History Medical History (Updated 11/06/23 @ 16:44 by Noah Adams MD) Somatic dysfunction of sacroiliac joint History of blood transfusion 2012 2/2 GASTRIC ULCER History of gastric ulcer 2012 Spinal stenosis Gastric ulcer Atrial fibrillation with rapid ventricular response (11/2022) Fall Moderate mitral regurgitation Mild aortic stenosis Transient ischemic attack (TIA) ~2012>REASON FOR [facility] Osteoarthritis Chronic back pain Dyslipidemia Chronic kidney disease stage 3 Hypertension Surgical History 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 History of cardiac cath NO STENTS History of coronary artery bypass graft 1998 (1 VESSEL) S/P epidural steroid injection History of esophagogastroduodenoscopy (EGD) S/p reverse total shoulder arthroplasty RT/LEFT History of abdominoplasty PANNICULECTOMY History of colonoscopy History of arthroplasty of right hip History of arthroplasty of left hip History of hysterectomy with oophorectomy History of arthroplasty of left shoulder History of tonsillectomy and adenoidectomy H/O bilateral salpingo-oophorectomy with hyter Family History Father , age 74 Allergic reaction Mother , 80s CHF (congestive heart failure) Other No family history of adverse response to anesthesia Social History Smoking Status: Never smoker Second Hand Exposure: No; Do You Dip or Chew Tobacco: No; Hx Alcohol Use: Yes Alcohol type: hard liquor Hx Substance Use: No Preferred Language: Ukrainian Communication Ability: Effective Visual Impairment: No Limitations [employer] Work[employer] Required: No Beliefs That Will Affect Care: None marital status: Single Current Living Situation: Alone Current Living Situation Comment: [facility] How many Children do You have: 0 Other Information That Helps Us Care for You: No Feels Safe at Home: Yes Safety Concerns: Feels Safe At This Time Assistive Devices: None Physical Exam Physical Exam: Appears comfortable. BP mildly hypotensive (95/68 mmHg). Pulse 82 bpm and regular. Respirations 18 and unlabored. Skin: No unusual lesions or ecchymosis. HEENT: Unremarkable. Neck: Jugular venous pulse at the clavicle at 90 with increased "v" waves, carotid with bilateral transmitted murmur. Lungs: Mildly decreased breath sounds, generally clear. No accessory muscle use. Cardiac: regular rhythm with normal S1 and moderately diminished A2. 2/6 systolic ejection murmur at the right upper sternal border radiating to the carotids, left sternal border, and axilla. No diastolic murmur or distinct gallop. Abdomen: Benign. Extremities: Nontender with stasis changes but no current pretibial edema. Intact peripheral pulses. Neurologic: Normal affect and conversation, nonfocal. Results & Data Vital Signs (Past 12 Hours) Vital Signs Temp Pulse Pulse Resp BP BP Pulse Ox 11/06/23 16:03 97.7 F 82 18 95/68 L 94 11/06/23 13:03 96 11/06/23 11:27 98.2 F 89 18 90/59 L 96 11/06/23 07:43 99.7 F H 109 H 18 92/58 L 91 11/06/23 05:53 72 O2 Del Method 11/06/23 16:03 Room Air 11/06/23 13:03 11/06/23 11:27 Room Air 11/06/23 07:43 Room Air 11/06/23 05:53 Laboratory Results WBC 4.27, hemoglobin 10.6, platelet count 107,000. Troponin as noted (14-16 range). Sodium 133, potassium 4.2, and 27, creatinine 1.78. Normal TSH. BNP 274 (prior range 862011). Diagnostic Findings Initial ECG shows sinus rhythm at 84 bpm with first-degree AV block, second ECG is similar but there is loss of R wave in V2, third ECG also shows possible old anteroseptal infarct but is otherwise unremarkable. Chest x-ray showed cardiomegaly with no active disease. Chest CT showed no pulmonary embolism or other acute abnormality. Echocardiogram January 2023 showed EF 60-65% with mild aortic stenosis, mild mitral regurgitation, and moderate to severe tricuspid regurgitation. PG Care Time/CCT Total # of Minutes Spent Total Time Spent with Patient: Total time spent is greater than 50% in coordination of care (as documented) at patient's floor/unit and/or counseling patient: Coding Level of Care Code 80879 IN/OBS CONSULT LVL 4,60M Diagnoses Mobitz type 1 second degree AV block I44.1 Costochondritis M94.0 Coronary artery disease involving [place] coronary artery of [place] heart without angina pectoris I25.10 Coronary Disease-Associated Artery/Lesion type: [place] artery [place] vs. transplanted heart: [place] heart Associated angina: without angina S/P CABG x 1 Z95.1 Anxiety F41.9 (HFpEF) heart failure with preserved ejection fraction I50.30 (3) CAD (coronary artery disease) Coronary Disease-Associated Artery/Lesion type: [place] artery [place] vs. transplanted heart: [place] heart Associated angina: without angina Qualified Code(s): I25.10 - Atherosclerotic heart disease of [place] coronary artery without angina pectoris
[2023-11-06] MEDS: LORazepam 0.5 MG TAB PO STA (22:40)
[2023-11-07 06:21] LABS: Hematocrit (blood only) 30.3 % (37.0-47.0); Hemoglobin 9.6 g/dl (12.0-16.0); Mean Corpuscular Hemoglobin 28.8 pg (25.0-34.0); Mean Corpuscular Hgb Conc 31.7 g/dL (32.0-36.0); Mean Platelet Volume 10.8 fL (9.4-12.4); Platelet Count 113 K/uL (130-400); RDW Coefficient of Variation 14.7 % (11.5-14.5); RDW Standard Deviation 49.2 fL (36.4-46.3); Red Blood Count 3.33 M/uL (4.20-5.40); White Blood Count 4.33 K/ul (4.8-10.8)
[2023-11-07 06:41] LABS: BUN Creatinine Ratio 18.5 (10-20); Calcium 8.5 mg/dl (8.6-10.3); Creatinine Clr Calc Pharmacy 26.1 ml/min; Est GFR (African American) 37.4 ml/min; Est GFR (Non-African American) 32.3 ml/min; Magnesium 1.8 mg/dl (1.7-2.4); Phosphorus 2.6 mg/dl (2.5-4.9); Potassium 4.2 mmol/L (3.5-5.1)
[2023-11-07] MEDS: METOPROLOL SUCC 25MG EXT REL TAB PO SCH (07:51)
--- NOTE | 2023-11-07 10:28 | Cardiology Progress Note ---
Date of Service November 07, 2023 Assessment & Plan (1) Mobitz type 1 second degree AV block: (2) Costochondritis: (3) CAD (coronary artery disease): Plan: . (4) S/P CABG x 1: (5) (HFpEF) heart failure with preserved ejection fraction: Plan 1. Second-degree AV block: She does have dropped beats on telemetry, and she has AV chanel dysfunction with at least first-degree AV block. Her rhythm is irregular and her dropped beats since yesterday appear to be due to blocked PACs. Her rate is not very slow, she does not have long pauses and I do not know that this is a cause of her symptoms of weakness. 2. Costochondritis: She is not complaining of chest discomfort currently 3. Coronary disease: She does have coronary artery disease and has had bypass surgery, but does not seem to be related to her current presentation. 4. Congestive heart failure, I do not believe she is currently in congestive heart failure. Admission and Anticipated Discharge Date Admission Date: November 04, 2023 Subjective Patient is still complaining of feeling very weak, evidently this started sometime before hospitalization and has continued. It does not seem to correlate with her rhythm. Physical Exam Physical Exam: Constitutional: Alert, cooperative and in no distress. She is resting in bed. HEENT: Unremarkable Neck: No jugular venous distention, carotid pulses are normal and equal bilaterally without bruits but with a transmitted murmur. Pulmonary: Clear to auscultation bilaterally. Cardiac: Somewhat irregular slow rhythm with a grade 3/6 crescendo decrescendo murmur at the base, no gallop or rub. Abdomen: Soft, nontender with normal bowel sounds. Extremities: No edema. Neurologic: No focal findings. Skin: No rash, ecchymoses or petechiae. Results & Data Vital Signs (Past 12 Hours) Vital Signs Temp Pulse Pulse Resp BP BP Pulse Ox 11/07/23 08:00 88 11/07/23 07:14 37.1 C 75 16 130/79 96 11/07/23 02:32 36.7 C 73 18 151/84 H 94 11/06/23 23:01 36.7 C 66 18 95/63 L 94 O2 Del Method 11/07/23 08:00 11/07/23 07:14 Room Air 11/07/23 02:32 Room Air 11/06/23 23:01 Room Air Laboratory Results Cardiac Enzymes 11/06/23 Range/Units 15:41 Troponin I High Sens 15.0 H (0-14) pg/ml CBC 11/07/23 Range/Units 05:33 WBC 4.33 L (4.8-10.8) K/ul RBC 3.33 L (4.20-5.40) M/uL Hgb 9.6 L (12.0-16.0) g/dl Hct 30.3 L (37.0-47.0) % Plt Count 113 L (130-400) K/uL Comprehensive Metabolic Panel 11/06/23 11/07/23 Range/Units 15:41 05:33 Sodium 133 L 139 (136-145) mmol/L Potassium 4.2 4.2 (3.5-5.1) mmol/L Chloride 106 111 H (98-107) mmol/L Carbon Dioxide 21 22 (21-32) mmol/L BUN 27 H 27 H (6-23) mg/dl Creatinine 1.78 H 1.46 H D (0.6-1.2) mg/dl Glucose 95 82 (70-99(Fasting)) mg/dl Calcium 8.6 8.5 L (8.6-10.3) mg/dl Intake and Output 11/06/23 11/07/23 11/07/23 22:59 06:59 14:59 Intake Total 1495.000 / 2115.000 100 / 2115.000 1000 / 1000 Output Total Balance 1495.000 / 2114.000 99 / 2114.000 1000 / 1000 Intake: IV 1255.000 / 3395.754 7619 / 1000 Azithromycin 500 mg In Dextrose 255 / 255 5% 250 ml @ 125 mls/hr IV Q24H YAN Rx#:[id number] Sodium Chloride 0.9% 1,000 ml @ 1000.000 / 8280.062 0518 / 1000 125 mls/hr IV .Q8H YAN Rx#: [id number] Oral 240 / 860 100 / 860 Output: # Bowel Movements Other: # Unmeasured Voids 3 Weight 70.7 kg Weight Measurement Method Standing Scale Diagnostic Findings Telemetry: Sinus rhythm, sinus bradycardia and sinus arrhythmia with frequent PACs. First-degree AV block with blocked PACs. PG Care Time/CCT Total # of Minutes Spent Total Time Spent with Patient: Total time spent is greater than 50% in coordination of care (as documented) at patient's floor/unit and/or counseling patient: Coding Level of Care Code 76297 SUB INP/OBS CARE 2/35MIN Diagnoses Mobitz type 1 second degree AV block I44.1 Costochondritis M94.0 Coronary artery disease involving [place] coronary artery of [place] heart without angina pectoris I25.10 Coronary Disease-Associated Artery/Lesion type: [place] artery [place] vs. transplanted heart: [place] heart Associated angina: without angina S/P CABG x 1 Z95.1 (HFpEF) heart failure with preserved ejection fraction I50.30 (3) CAD (coronary artery disease) Coronary Disease-Associated Artery/Lesion type: [place] artery [place] vs. transplanted heart: [place] heart Associated angina: without angina Qualified Code(s): I25.10 - Atherosclerotic heart disease of [place] coronary artery without angina pectoris
--- NOTE | 2023-11-07 16:49 | Hospitalist Progress Note ---
Date of Service November 07, 2023 Assessment & Plan (1) Acute UTI: Plan: per previous hospitalist notes with addendum: Ms. Howard is an 84-year-old female with past medical history significant for hypothyroidism, history of hypercalcemia, hiatal hernia, thoracic aortic ectasia, chronic diastolic CHF, CAD status post CABG, hypertension, chronic atrial fibrillation, mild aortic stenosis, GERD, CKD stage III osteoarthritis depression, insomnia, mixed incontinence urge and stress, who lives alone at home and ambulates without support admitted for concern of acute cystitis. Patient with shortness of breath since last night and also nausea and headaches, which have resolved with a dose of IV diuretic and IV abx. Patient seemingly improved based on interactivity in exam. Patient doesn't appear overtly toxic. Hard to localize any symptoms as patient is poor historian and often goes in circular discussion. AOx3 however. Will continue course #General weakness reports feeling less than baseline, usually does not require ambulatory aid PT/OT recommends SNF #Fevers #Pancytopenia Patient with persistent low grade. Patient reports she just thinks "she is dying" and cannot give an localizing symptoms. Procal is 0.09, but patient with history of severe pneumonias Biofire negative Will get stool antigen as patient reports 1 episode of loose stool Will continue with Azithromycin and Cefepime Monitor oxygenation Lyme screen Repeat CBC in am 11/06 Afebrile WBC remains around 4000 Clinically improving Continue with cefepime plus azithromycin day number 5 out of 7 #Acute uncomplicatedUTI Possibly causing her symptoms UA with 4+bacteria still febrile after CTX will broaden to cefepime and azithromycin given hx of severe pneumonias 11/06 Symptoms improved Continue with antibiotics per #1 #Acute on chronic heart failure with preserved EF Elevated BNP CTA chest unremarkable Respiratory bio fire negative Saturating okay on room air Monitor need for additional diuretic Given gentle fluid 2/2 hypotension, poor po intake Euvolemic today #CAD s/p CABG #Mild elevation of troponin likely demand iso known cardiac disease/UTI/mild exacerbation responsive to IV diuteric Downtrending, no active ACS Continue metoprolol hold losartan Monitor on tele Received colchicine yesterday for chest pain No recurrence #Hypothyroidism On Synthroid TSH WNL #Hypotensive intermittently #Hypertension On losartan and metoprolol succinate hold losartan gentle fluids BP stable off losartan Continue to monitor #Hyperlipidemia Statin #CAD On statin beta-brendan and Eliquis #chronic atrial fibrillation On metoprolol and Eliquis #GERD On Protonix #Chronic normocytic anemia Iron deficiency baseline hgb 8-10, likely multifactorial No recent anemia labs, will order for am ferritin 65, consider IV v po when infection r/o Iron level 11: Start p.o. iron #CKD stage III Creatinine baseline fluctuates Around baseline #Depression #Insomnia Continue home medications DVT prophylaxis On Eliquis Disposition Transition to long-term facility in 1 to 2 days Admission and Anticipated Discharge Date Admission Date: November 04, 2023 Subjective Follow-up for weakness, pneumonia, UTI, etc. Seen sitting up in bed, comfortable, in good spirits Oriented, answering all questions appropriately Does seem to be repetitive, somewhat forgetful States she feels better overall Denies shortness of breath, cough, chest pain, abdominal pain, urinary symptoms, fever or chills Chest pain has resolved, no recurrence since yesterday No dizziness, palpitations No other new symptom Review of Systems Review of Systems: all noted and negative except for above Physical Exam Physical Exam: General- oriented x 3, not in distress, speaks in sentences with no effort or accessory muscle use Eyes- anicteric Neck- no JVD Lungs- clear breath sounds bilaterally, No crackles or wheezing Heart- normal rate, regular rhythm; no murmurs Abdomen- normal bowel sounds, nondistended, soft, nontender No CVA tenderness Extremities- no pretibial edema, no calf tenderness Neuro- alert, oriented x 3; no gross focal neurologic deficits Skin- warm & dry Results & Data Results & Data Vital Signs (Past 12 Hours) Vital Signs Temp Pulse Pulse Resp BP BP Pulse Ox 11/07/23 15:20 83 11/07/23 14:49 36.7 C 75 18 123/71 90 11/07/23 10:39 36.2 C L 67 18 108/72 93 11/07/23 08:00 88 11/07/23 07:14 37.1 C 75 16 130/79 96 O2 Del Method 11/07/23 15:20 11/07/23 14:49 Room Air 11/07/23 10:39 Room Air 11/07/23 08:00 11/07/23 07:14 Room Air
[2023-11-07] MEDS: LORazepam 0.5 MG TAB SL STA (22:47)
[2023-11-08] MEDS: cefTRIAXone SODIUM 2,000 MG/50 ML BAG IV SCH (09:34)
[2023-11-08 11:05] LABS: Adenovirus F 40/41 PCR Not Detected (NotDetected); Astrovirus PCR Not Detected (NotDetected); Campylobacter PCR Not Detected (NotDetected); Cryptosporidium PCR Not Detected (NotDetected); Cyclospora cayetanensis PCR Not Detected (NotDetected); Entamoeba histolytica PCR Not Detected (NotDetected); Enteroaggregative E.coli(EAEC) Not Detected (NotDetected); Enteropathogenic E.coli (EPEC) Not Detected (NotDetected); Enterotoxigenic E.coli (ETEC) Not Detected (NotDetected); Giardia lamblia PCR Not Detected (NotDetected); Norovirus GI/GII PCR Not Detected (NotDetected); Plesiomonas shigelloides PCR Not Detected (NotDetected); Rotavirus A PCR Not Detected (NotDetected); Salmonella PCR Not Detected (NotDetected); Sapovirus PCR Not Detected (NotDetected); Shiga-like Toxin E.coli (STEC) Not Detected (NotDetected); Shigella/Enteroinvasive E.coli Not Detected (NotDetected); Vibrio cholerae PCR Not Detected (NotDetected); Vibrio species PCR Not Detected (NotDetected); Yersinia enterocolitica PCR Not Detected (NotDetected)
--- NOTE | 2023-11-08 17:03 | Hospitalist Progress Note ---
Date of Service November 08, 2023 Assessment & Plan (1) Acute UTI: Plan: per previous hospitalist notes with addendum: Ms. Howard is an 84-year-old female with past medical history significant for hypothyroidism, history of hypercalcemia, hiatal hernia, thoracic aortic ectasia, chronic diastolic CHF, CAD status post CABG, hypertension, chronic atrial fibrillation, mild aortic stenosis, GERD, CKD stage III osteoarthritis depression, insomnia, mixed incontinence urge and stress, who lives alone at home and ambulates without support admitted for concern of acute cystitis. Patient with shortness of breath since last night and also nausea and headaches, which have resolved with a dose of IV diuretic and IV abx. Patient seemingly improved based on interactivity in exam. Patient doesn't appear overtly toxic. Hard to localize any symptoms as patient is poor historian and often goes in circular discussion. AOx3 however. Will continue course #General weakness reports feeling less than baseline, usually does not require ambulatory aid PT/OT recommends SNF #Fevers #Pancytopenia Patient with persistent low grade. Patient reports she just thinks "she is dying" and cannot give an localizing symptoms. Procal is 0.09, but patient with history of severe pneumonias Biofire negative Will get stool antigen as patient reports 1 episode of loose stool Will continue with Azithromycin and Cefepime Monitor oxygenation Lyme screen Repeat CBC in am 11/06 Afebrile WBC remains around 4000 Clinically improving Continue with cefepime plus azithromycin day number 5 out of 7 11/07 Stable overall Continue cefepime plus azithromycin day number 6 out of 7 #Acute uncomplicatedUTI Possibly causing her symptoms UA with 4+bacteria still febrile after CTX will broaden to cefepime and azithromycin given hx of severe pneumonias 11/07 Symptoms improving Continue with antibiotics per #1 #Acute on chronic heart failure with preserved EF Elevated BNP CTA chest unremarkable Respiratory bio fire negative Saturating okay on room air Monitor need for additional diuretic Given gentle fluid 2/2 hypotension, poor po intake Euvolemic today #CAD s/p CABG #Mild elevation of troponin likely demand iso known cardiac disease/UTI/mild exacerbation responsive to IV diuteric Downtrending, no active ACS Continue metoprolol hold losartan Monitor on tele Received colchicine yesterday for chest pain No recurrence #Hypothyroidism On Synthroid TSH WNL #Hypotensive intermittently #Hypertension On losartan and metoprolol succinate hold losartan gentle fluids BP trending up Continue to monitor #Hyperlipidemia Statin #CAD On statin beta-brendan and Eliquis #chronic atrial fibrillation On metoprolol and Eliquis #GERD On Protonix #Chronic normocytic anemia Iron deficiency baseline hgb 8-10, likely multifactorial No recent anemia labs, will order for am ferritin 65, consider IV v po when infection r/o Iron level 11: Start p.o. iron #CKD stage III Creatinine baseline fluctuates Around baseline #Depression #Insomnia Continue home medications DVT prophylaxis On Eliquis Disposition Transition to shelter facility tomorrow Admission and Anticipated Discharge Date Admission Date: November 04, 2023 Subjective Follow-up for UTI, pneumonia, etc. Seen resting in bed, sitting up, comfortable, not in distress States she feels sort of weak and tired today No shortness of breath, cough, abdominal pain, nausea vomiting Has urinary frequency but denies dysuria, fevers or chills No other new symptoms Review of Systems Review of Systems: all noted and negative except for above Physical Exam Physical Exam: General- oriented x 3, not in distress, speaks in sentences with no effort or accessory muscle use Eyes- anicteric Neck- no JVD Lungs- clear breath sounds bilaterally, no crackles/wheezing Heart- normal rate, regular rhythm; no murmurs Abdomen- normal bowel sounds, nondistended, soft, nontender Extremities- no pretibial edema, no calf tenderness Neuro- alert, oriented x 3; no gross focal neurologic deficits Skin- warm & dry Results & Data Results & Data Vital Signs (Past 12 Hours) Vital Signs Temp Pulse Pulse Resp BP Pulse Ox O2 Del Method 11/08/23 15:57 36.3 C L 74 20 150/74 H 94 Room Air 11/08/23 15:16 85 11/08/23 11:26 36.7 C 81 18 108/72 98 Room Air 11/08/23 09:44 Room Air 11/08/23 08:17 36.3 C L 94 H 18 157/82 H 94 Room Air 11/08/23 07:22 76 all noted and reviewed including below
[2023-11-08] MEDS: ZOLPIDEM TARTRATE 5 MG TAB PO STA (22:50)
[2023-11-09 11:49] VITALS: RESP 16; TEMP 97.9; O2SAT 98
[2023-11-09 11:52] LABS: Babesia microti DNA Not Detected (Not Detected)
[2023-11-09 13:10] VITALS: BP 149/80; PULSE 68
--- NOTE | 2023-11-09 13:32 | Discharge Summary ---
Discharge Summary Date of Service November 09, 2023 Principal Dx & Hospital Course #1 = Principal Diagnosis (1) Acute UTI: per previous hospitalist notes with addendum: Ms. Howard is an 84-year-old female with past medical history significant for hypothyroidism, history of hypercalcemia, hiatal hernia, thoracic aortic ectasia, chronic diastolic CHF, CAD status post CABG, hypertension, chronic atrial fibrillation, mild aortic stenosis, GERD, CKD stage III osteoarthritis depression, insomnia, mixed incontinence urge and stress, who lives alone at home and ambulates without support admitted for concern of acute cystitis. #General weakness reports feeling less than baseline, usually does not require ambulatory aid PT/OT recommends SNF #Fevers #Pancytopenia Patient with persistent low grade. Patient reports she just thinks "she is dying" and cannot give an localizing symptoms. Procal is 0.09, but patient with history of severe pneumonias Biofire negative Clinically improved, afebrile Completed 7-day course of IV antibiotics including cefepime, ceftriaxone, azithromycin #Acute uncomplicated UTI UA with 4+bacteria Clinically improved Completed 7-day course of IV antibiotics including cefepime and ceftriaxone #Acute on chronic heart failure with preserved EF Elevated BNP CTA chest unremarkable Respiratory bio fire negative Was given as needed IV Lasix Has remained euvolemic since #CAD s/p CABG #Mild elevation of troponin likely demand iso known cardiac disease/UTI/mild exacerbation responsive to IV diuteric Downtrending, no active ACS Continue metoprolol Losartan held in light of episodes of low blood pressure #Hypothyroidism On Synthroid TSH WNL #Hypotensive intermittently #Hypertension On losartan and metoprolol succinate hold losartan gentle fluids BP trending up Continue to monitor In the closely #Lung Nodules Seen on CT chest: Atelectasis versus scarring is seen in the dependent portions of the lungs. There is a right pleural-based nodule measuring 12 mm with surrounding atelectasis, unchanged, as well as a stable 3 mm nodule in the right middle lobe (series 4 image 57). Please refer to full report in the Ordered Studies section Further work up, management, and ff up as outpatient #Hyperlipidemia Statin #CAD On statin beta-brendan and Eliquis #chronic atrial fibrillation On metoprolol and Eliquis Metropol dose lowered to 37.5 mg Monitor renal function and adjust Eliquis accordingly #GERD On Protonix #Chronic normocytic anemia Iron deficiency baseline hgb 8-10, likely multifactorial No recent anemia labs, will order for am ferritin 65, consider IV v po when infection r/o Iron level 11: Start p.o. iron Monitor CBC and iron level #CKD stage III Creatinine baseline fluctuates Around baseline #Depression #Insomnia Continue home medications DVT prophylaxis On Eliquis Disposition Transition to longterm facility Notes For Next Care Provider Medication Changes From Visit Metoprolol XL lowered to 37.5 mg Losartan discontinued Started ferrous sulfate twice daily Admission HPI Per Admitting Provider 84-year-old female with past medical history significant for hypothyroidism, history of hypercalcemia, hiatal hernia, thoracic aortic ectasia, chronic diastolic CHF, CAD status post CABG, hypertension, chronic atrial fibrillation, mild aortic stenosis, GERD, CKD stage III osteoarthritis depression, insomnia, mixed incontinence urge and stress, who lives alone at home and ambulates wi thout support comes because of shortness of breath since last night and also nausea and headaches. Patient states since last night she was feeling short of breath with progressive worsening. But currently in the ER she ambulated to bathroom with minimal short of breath. Was having a lot of headache but with IV Tylenol headache is improving. Since yesterday also was having lot of nausea and was not able to eat anything. No vomiting. Has mild cough. No blurred vision. No earache. No runny nose. No sore throat. No difficulty swallowing. No chest pains. No abdominal pain. Normal bowel movements. Normal bladder movements. Denies any hematuria. Currently resting comfortably and hemodynamically stable. Past medical history. As mentioned above Past surgical history. Liposuction. CABG. Colonoscopy. EGD. Reconstruction of the bilateral shoulder joint. Cataracts. Tonsillectomy. Total abdominal hysterectomy with removal of tubes. Total hip replacement Social history. . No smoking. Alcohol occasional. No drug use. Family history. Father had allergies. Mother had CHF. Brother had CAD, dementia. Discharge Exam General- oriented x 3, not in distress, speaks in sentences with no effort or accessory muscle use Eyes- anicteric Neck- no JVD Lungs- clear breath sounds bilaterally, no rales/wheezes Heart- normal rate, regular rhythm; no murmurs Abdomen- normal bowel sounds, nondistended, soft, nontender Extremities- no pretibial edema, no calf tenderness Neuro- alert, oriented x 3; no gross focal neurologic deficits Skin- warm & dry Updated Medication List Medication Instructions Recorded Confirmed Type apixaban 5 mg tablet (Eliquis) 5 mg PO BID 11/03/23 11/03/23 History benzonatate 100 mg capsule 100 mg PO TID PRN Cough 11/03/23 11/03/23 History buspirone 10 mg tablet 10 mg PO BID 11/03/23 11/03/23 History calcitriol 0.25 mcg capsule 0.25 mcg PO UD 11/03/23 11/03/23 History gabapentin 300 mg capsule 300 mg PO TID 11/03/23 11/03/23 History hydroxyzine HCl 10 mg tablet 10 mg PO TID PRN Anxiety 11/03/23 11/03/23 History levothyroxine 100 mcg tablet 100 mcg PO DAILY 11/03/23 11/03/23 History pantoprazole 40 mg tablet,delayed 40 mg PO BID 11/03/23 11/03/23 History release rosuvastatin 10 mg tablet 10 mg PO HS 11/03/23 11/03/23 History torsemide 20 mg tablet 20 mg PO DAILY PRN Edema 11/03/23 11/03/23 History trazodone 150 mg tablet 150 mg PO HS 11/03/23 11/03/23 History L.acidop,casei,lactis,rham-B.lact,laura 30 cap PO DAILY #30 caps 11/09/23 Rx 625 mg (10 billion cell) capsule (Advanced Probiotic) metoprolol succinate 25 mg 37.5 mg (1.5 x 25 mg) PO DAILY 30 11/09/23 Rx tablet,extended release 24 hr days #45 tabs Hospital Stay Data Consultations 11/03/23 20:43 ED Decision to Admit Stat 11/06/23 15:28 Consult Cardiology Routine Diagnostic Imagining Performed Laboratory Results WBC 4.33 K/ul (4.8-10.8) L 11/07/23 05:33 RBC 3.33 M/uL (4.20-5.40) L 11/07/23 05:33 Hgb 9.6 g/dl (12.0-16.0) L 11/07/23 05:33 Hct 30.3 % (37.0-47.0) L 11/07/23 05:33 MCV 91.0 fL (80.0-100.0) 11/07/23 05:33 MCH 28.8 pg (25.0-34.0) 11/07/23 05:33 MCHC 31.7 g/dL (32.0-36.0) L 11/07/23 05:33 RDW Std Deviation 49.2 fL (36.4-46.3) H 11/07/23 05:33 RDW Coeff of Howie 14.7 % (11.5-14.5) H 11/07/23 05:33 Plt Count 113 K/uL (130-400) L 11/07/23 05:33 MPV 10.8 fL (9.4-12.4) 11/07/23 05:33 Immature Gran % (Auto) 0.2 % 11/04/23 05:24 Neut % (Auto) 41.3 % 11/04/23 05:24 Lymph % (Auto) 40.0 % 11/04/23 05:24 [place] % (Auto) 14.9 % 11/04/23 05:24 Eos % (Auto) 2.8 % 11/04/23 05:24 Baso % (Auto) 0.8 % 11/04/23 05:24 Neut # (Auto) 2.08 K/uL (1.40-6.50) 11/04/23 05:24 Lymph # (Auto) 2.01 K/uL (1.20-3.40) 11/04/23 05:24 [place] # (Auto) 0.75 K/uL (0.11-0.59) H 11/04/23 05:24 Eos # (Auto) 0.14 K/uL (0.00-0.50) 11/04/23 05:24 Baso # (Auto) 0.04 K/uL (0.00-0.20) 11/04/23 05:24 Immature Gran # (Auto) 0.01 K/uL (0.01-0.20) 11/04/23 05:24 PT 11.8 Seconds (9.0-12.0) 11/03/23 17:47 INR 1.1 (0.9-1.1) 11/03/23 17:47 APTT 25 Seconds (21-31) 11/03/23 17:47 PTT Ratio 0.9 11/03/23 17:47 Sodium 139 mmol/L (136-145) 11/07/23 05:33 Potassium 4.2 mmol/L (3.5-5.1) 11/07/23 05:33 Chloride 111 mmol/L (98-107) H 11/07/23 05:33 Carbon Dioxide 22 mmol/L (21-32) 11/07/23 05:33 Anion Gap 6 (3-11) 11/07/23 05:33 BUN 27 mg/dl (6-23) H 11/07/23 05:33 Creatinine 1.46 mg/dl (0.6-1.2) H D 11/07/23 05:33 Est Cr Clr Drug Dosing 26.1 ml/min 11/07/23 05:33 Est GFR ( Amer) 37.4 ml/min 11/07/23 05:33 Est GFR (Non-Af Amer) 32.3 ml/min 11/07/23 05:33 BUN/Creatinine Ratio 18.5 (10-20) 11/07/23 05:33 Glucose 82 mg/dl (70-99(Fasting)) 11/07/23 05:33 Lactate 1.0 mmol/L (0.4-2.0) 11/06/23 15:41 Calcium 8.5 mg/dl (8.6-10.3) L 11/07/23 05:33 Phosphorus 2.6 mg/dl (2.5-4.9) 11/07/23 05:33 Magnesium 1.8 mg/dl (1.7-2.4) 11/07/23 05:33 Iron 11 mcg/dl (35-150) L 11/05/23 05:29 TIBC 279 mcg/dl (250-450) 11/05/23 05:29 Unsaturated IBC 268 mcg/dl (155-355) 11/05/23 05:29 Transferrin % Sat 4 % (15-50) L 11/05/23 05:29 Ferritin 65.0 ng/ml (8-388) 11/05/23 05:29 Total Bilirubin 0.3 mg/dl (0.2-1.0) 11/06/23 05:24 AST 17 U/L (13-39) 11/06/23 05:24 ALT 6 U/L (7-52) L 11/06/23 05:24 Alkaline Phosphatase 36 U/L (34-104) 11/06/23 05:24 Troponin I High Sens 15.0 pg/ml (0-14) H 11/06/23 15:41 B-Natriuretic Peptide 274 pg/ml (0-100) H 11/03/23 17:47 Total Protein 6.1 gm/dl (6.0-8.3) 11/06/23 05:24 Albumin 3.4 gm/dl (3.4-5.0) 11/06/23 05:24 Globulin 2.7 gm/dl (2.5-4.0) 11/06/23 05:24 Albumin/Globulin Ratio 1.3 (0.9-2) 11/06/23 05:24 Vitamin B12 399 pg/ml (180-914) 11/05/23 05: Folate 11.59 ng/ml (>5.38) 11/05/23 05:29 Procalcitonin 0.09 ng/ml (0-0.5) 11/06/23 05:24 TSH 0.506 uIu/ml (0.300-4.500) 11/05/23 05:29 Urine Color Yellow 11/03/23 18:03 Urine Appearance Cloudy (Clear) A 11/03/23 18:03 Urine pH 8.5 (4.5-7.5) H 11/03/23 18:03 Ur Specific [place] 1.011 (1.000-1.030) 11/03/23 18:03 Urine Protein Negative (Negative) 11/03/23 18:03 Urine Glucose (UA) Negative (Negative) 11/03/23 18:03 Urine Ketones Trace (Negative) H 11/03/23 18:03 Urine Blood Negative (Negative) 11/03/23 18:03 Urine Nitrite Positive (Negative) A 11/03/23 18:03 Urine Bilirubin Negative (Negative) 11/03/23 18:03 Urine Urobilinogen Negative (Negative) 11/03/23 18:03 Ur Leukocyte Esterase 3+ (Negative) H 11/03/23 18:03 Urine WBC (Auto) >50 /hpf (0-5) H 11/03/23 18:03 Urine RBC (Auto) 0-2 /hpf (0-2) 11/03/23 18:03 U Hyaline Cast (Auto) 0-2 /lpf (0-2) 11/03/23 18:03 U Epithel Cells (Auto) 0-2 /hpf (0-2) 11/03/23 18:03 Urine Bacteria (Auto) 4+ (None Seen) H 11/03/23 18:03 Nasal Screen MRSA (PCR) Negative (Negative) 11/06/23 19:33 Stl C. cayetanensis PCR Not Detected (NotDetected) 11/08/23 09:34 Stool Rotavirus A PCR Not Detected (NotDetected) 11/08/23 09:34 Stl Adenov F 40/41 PCR Not Detected (NotDetected) 11/08/23 09:34 Stool Astrovirus (PCR) Not Detected (NotDetected) 11/08/23 09:34 Stool Campylobacter PCR Not Detected (NotDetected) 11/08/23 09:34 Stool Cryptosporidium PCR Not Detected (NotDetected) 11/08/23 09:34 Stl E.coli Shiga Tox PCR Not Detected (NotDetected) 11/08/23 09:34 Stl Enterotoxigenic E PCR Not Detected (NotDetected) 11/08/23 09:34 Stool EPEC (PCR) Not Detected (NotDetected) 11/08/23 09:34 Stool EAEC (PCR) Not Detected (NotDetected) 11/08/23 09:34 Stl E. histolytica PCR Not Detected (NotDetected) 11/08/23 09:34 Stool Giardia Lamblia PCR Not Detected (NotDetected) 11/08/23 09:34 Stool Salmonella PCR Not Detected (NotDetected) 11/08/23 09:34 Stool Sapovirus (PCR) Not Detected (NotDetected) 11/08/23 09:34 Stl P. shigelloides PCR Not Detected (NotDetected) 11/08/23 09:34 Stl Shigella/EIEC PCR Not Detected (NotDetected) 11/08/23 09:34 St Y.enterocolitica PCR Not Detected (NotDetected) 11/08/23 09:34 Stool Vibrio (PCR) Not Detected (NotDetected) 11/08/23 09:34 Stl Vibrio cholerae PCR Not Detected (NotDetected) 11/08/23 09:34 Stl Norovirus GI/GII PCR Not Detected (NotDetected) 11/08/23 09:34 Adenovirus (PCR) Not Detected (NotDetected) 11/03/23 17:47 Anaplasma Smear See Comment 11/06/23 11:45 Babesia Smear See Comment 11/06/23 11:45 Babesia microti DNA PCR Not Detected (Not Detected) 11/06/23 11:45 B. pertussis DNA (PCR) Not Detected (NotDetected) 11/03/23 17:47 B.parapertussis DNA PCR Not Detected (NotDetected) 11/03/23 17:47 Lyme Disease Screen Negative (Negative) 11/06/23 05:24 C. pneumoniae DNA (PCR) Not Detected (NotDetected) 11/03/23 17:47 Coronavirus OC43 (PCR) Not Detected (NotDetected) 11/03/23 17:47 Coronavirus HKU1 (PCR) Not Detected (NotDetected) 11/03/23 17:47 Coronavirus 229E (PCR) Not Detected (NotDetected) 11/03/23 17:47 SARS-CoV-2 (PCR) Not Detected (NotDetected) 11/03/23 17:47 Coronavirus NL63 (PCR) Not Detected (NotDetected) 11/03/23 17:47 Human Metapneumovir PCR Not Detected (NotDetected) 11/03/23 17:47 Influenza Type A (PCR) Not Detected (NotDetected) 11/03/23 17:47 Influenza Type B (PCR) Not Detected (NotDetected) 11/03/23 17:47 M. pneumoniae (PCR) Not Detected (NotDetected) 11/03/23 17:47 Parainfluenza 1 (PCR) Not Detected (NotDetected) 11/03/23 17:47 Parainfluenza 2 (PCR) Not Detected (NotDetected) 11/03/23 17:47 Parainfluenza 3 (PCR) Not Detected (NotDetected) 11/03/23 17:47 Parainfluenza 4 (PCR) Not Detected (NotDetected) 11/03/23 17:47 RSV (PCR) Not Detected (NotDetected) 11/03/23 17:47 Entero/Rhino (PCR) Not Detected (NotDetected) 11/03/23 17:47 Impressions Chest X-Ray 11/03/23 17:38 XR chest 1V portable CLINICAL HISTORY: Dyspnea TECHNIQUE: Single frontal radiograph of the chest was obtained. Comparison: Comparison is made to rib series 03/14/2023 FINDINGS: Bilateral shoulder arthroplasties again noted. Cardiomegaly is noted. The aortic arch is calcified. The lungs are clear. No evidence of pleural effusion or pneumothorax. IMPRESSION: No acute chest disease. Cardiomegaly is noted. ACT 112: Negative or not required by law. Electronically signed by: Heath Rockwell M.D. 11/03/2023 7:08 PM Chest CTA 11/03/23 18:38 CT angio chest PE protocol CLINICAL HISTORY: PE TECHNIQUE: Multidetector row helical CT of the chest was performed with angiographic protocol. Coronal and sagittal reformations were obtained. Coronal and sagittal MIPS were obtained from the axial data set and were submitted for review. Automated dose lowering techniques and/or adjustment according to patient size were utilized for this exam. CT DOSE: 515.65 mGy.cm Comparison: Comparison is made to CT chest 03/11/2023 FINDINGS: Lungs and pleura: Atelectasis versus scarring is seen in the dependent portions of the lungs. There is a right pleural-based nodule measuring 12 mm with surrounding atelectasis, unchanged, as well as a stable 3 mm nodule in the right middle lobe (series 4 image 57). Heart and pericardium: Cardiomegaly is seen with biatrial enlargement. Vessels: No evidence of pulmonary embolism. Mediastinum and caryn: Unremarkable. Chest wall and lower neck: Unremarkable. Abdomen: A moderate hiatal hernia is seen. Bones: Degenerative changes in the thoracic spine. 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 IMPRESSION: 1. No acute abnormality and in particular no evidence of pulmonary embolus. 2. Stable pulmonary nodules as above. 3. Hepatomegaly with biatrial enlargement. 4. Additional findings as above. ACT 112: Negative or not required by law. Electronically signed by: Heath Rockwell M.D. 11/03/2023 7:50 PM 11/03/23 18:38 CT angio chest PE protocol Stat Pending Results Patient Have Any Pending Studies at Discharge: No Discharge Instructions Given to Patient (Per Discharging Provider) Monitor blood pressure and heart rate daily. Metoprolol started. Losartan discontinued. Please refer to accompanying hospital discharge summary for further details. Total Time Total Time Spent Total Time Spent (In Minutes): 40 minutes
== END 2023-11-09 13:54 | DRG 689 ==
LOC: ED 17:28 → 2N 11-04 00:39 → SUATTDRO 11-04 00:39 → 2N 11-04 00:46
DX: I44.0 Atrioventricular block, first degree; K21.9 Gastro-esophageal reflux disease without esophagitis; I25.10 Atherosclerotic heart disease of native coronary artery without angina pectoris; Z95.1 Presence of aortocoronary bypass graft; D61.818 Other pancytopenia; N39.46 Mixed incontinence; N18.30 Chronic kidney disease, stage 3 unspecified; I24.89 Other forms of acute ischemic heart disease; I95.9 Hypotension, unspecified; R91.8 Other nonspecific abnormal finding of lung field; G47.00 Insomnia, unspecified; E03.9 Hypothyroidism, unspecified; I48.20 Chronic atrial fibrillation, unspecified; Z79.890 Hormone replacement therapy; M94.0 Chondrocostal junction syndrome [Tietze]; I13.0 Hypertensive heart and chronic kidney disease with heart failure and stage 1 through stage 4 chronic kidney disease, or unspecified chronic kidney disease; E78.5 Hyperlipidemia, unspecified; F41.9 Anxiety disorder, unspecified; I50.33 Acute on chronic diastolic (congestive) heart failure; F32.A Depression, unspecified; N39.0 Urinary tract infection, site not specified; Z79.01 Long term (current) use of anticoagulants; I35.0 Nonrheumatic aortic (valve) stenosis

== ENCOUNTER 2023-12-13 17:22 | Inpatient (IN) ==
[2023-12-13 18:48] LABS: Appearance Urine Clear (Clear); Bilirubin Urine Negative (Negative); Blood Urine Negative (Negative); Color Urine Yellow; Glucose Urine UA Negative (Negative); Ketones Urine Negative (Negative); Leukocyte Esterase Urine Negative (Negative); Nitrite Urine Negative (Negative); Protein Urine Negative (Negative); Specific Gravity Urine 1.011 (1.000-1.030); Urobilinogen Urine Negative (Negative)
--- NOTE | 2023-12-13 18:52 | CT Scan Report ---
CT SCAN OF THE BRAIN WITHOUT IV CONTRAST CLINICAL HISTORY: Change in mental status. COMPARISON STUDY: CT of the brain dated 07/16/2022. TECHNIQUE: Unenhanced axial CT scan of the brain is performed from the vertex to the skull base. A do se lowering technique was utilized adhering to the principles of ALARA. CT DOSE: 625.8 mGy.cm FINDINGS: Brain parenchyma: There is age-related involutional change noting moderate subcortical and periventri cular microangiopathic disease. There is no hemorrhage, mass effect, or evidence of acute territorial ischemia by CT criteria. Rashid-white matter differentiation is preserved. No extra-axial fluid collec tion is seen. Ventricles, sulci, cisterns: Prominent secondary to involutional change. Intracranial vasculature: There is atherosclerotic calcification of the cavernous carotid and vertebr al arteries. Calvarium: Unremarkable. Sinuses and mastoids: The visualized paranasal sinuses are clear. The mastoid air cells are well pneu matized. Orbits: The bony orbits are grossly intact. There are bilateral ocular lens implants. IMPRESSION: There is no hemorrhage, mass effect, or evidence of acute territorial ischemia by CT mir ballard. ACT 112: Negative or not required by law. Electronically signed by: Avel Calero M.D. 12/13/2023 6:50 PM
--- NOTE | 2023-12-13 18:53 | Emergency Department Note ---
Impression & Plan Acute alteration in mental status ED Provider Note NAME: DYLAN LEACH AGE: 85 SEX: F : 11/14/1938 ARRIVES VIA: Ambulance INFORMANT: Patient, EMS ED PROVIDER(S): Delmar Bar DO CHIEF COMPLAINT: Confusion HPI: The patient is an 85-year-old female who presented to the emergency department from her personal-longterm for an evaluation of confusion. The patient has been having an altered mental status throughout the day. There was no reported focal neurologic deficit. There is no reported fever. It is unclear if the patient is compliant with her outpatient medication regimen. There was no reported trauma. The patient herself does not offer any complaints. She denies having any chest pain or difficulty breathing. ROS: See above HPI for pertinent positives & negatives. A total of 10 systems reviewed and were otherwise negative. PAST MEDICAL HISTORY: See Below PAST SURGICAL HISTORY: See Below FAMILY HISTORY: See Below SOCIAL HISTORY: See Below HOME MEDICATIONS: See Below ALLERGIES: See Below VITALS: See Below PHYSICAL EXAMINATION: GENERAL: Patient is awake alert in no acute distress patient is resting comfortably and showing no signs of anxiety EYES: The conjunctivae are clear. The pupils are round and reactive. EARS, NOSE, MOUTH AND THROAT: The nose is without any evidence of any deformity. NECK: The neck is nontender and supple. RESPIRATORY: Normal respiratory effort is noted there is no evidence of wheezing rhonchi or rales CARDIOVASCULAR: Regular rate and rhythm noted there no murmurs rubs or gallops normal S1 normal S2. GASTROINTESTINAL: The abdomen is soft. Abdomen is nontender. MUSCULOSKELETAL/EXTREMITIES: There is no evidence of gross deformity full range of motion is noted in the hips and shoulders. SKIN: There is no obvious evidence of any rash. There are no petechiae, pallor or cyanosis noted. NEUROLOGIC: Patient is awake alert and oriented to person place and situation. She is not oriented specifically on time. Strength was symmetric. Speech was clear. MEDICAL DECISION MAKING: The patient is an 85-year-old female who presented to the emergency department for an evaluation of altered mental status. The patient is awake and alert. To my exam she appears to be at her baseline. I discussed patient's laboratory and radiographic studies with her. Given her findings it does not appear that she has any acute process going on but her living situation is in question and I am unsure if she would be safe going back to her personal-longterm at this time. For this reason [facility] Nursing notes reviewed. Prior medical records reviewed Vital Signs: reviewed and remarkable for elevated blood pressure. Differential diagnosis: Infection, hypoglycemia, electrolyte abnormalities, overdose, toxicologic, cardiac sources, intracerebral event, neurologic, trauma, as well as other pathologies. ER treatment provided: See below Diagnostics interpreted by me: ECG: EKG was obtained in the emergency department. My interpretation is sinus rhythm at 76 bpm. First-degree AV block was noted. Nonspecific ST abnormalities were noted. This was compared to a tracing from November 06, 2023. No changes were noted. Cardiac Monitoring: An order was placed for continuous cardiac monitoring. The monitor shows a rate of 82 bpm with sinus rhythm. Laboratory studies: As stated above and show below. Imaging studies: See below. Radiographic imaging was reviewed by myself Consultation(s): The case was discussed with Dr. Johnson [facility]. Past Med/Surg History Problem List (Updated 12/13/23 @ 23:27 by Delmar Bar DO) Acute alteration in mental status (Acute) Confusion Mobitz type 1 second degree AV block Costochondritis Elevated troponin (Acute) Weakness (Acute) SOB (shortness of breath) (Acute) History of coronary artery disease (Acute) Precordial chest pain (Acute) CAD (coronary artery disease) Hypophosphatemia Hypomagnesemia Acute on chronic diastolic CHF (congestive heart failure) Pneumonia (Acute) Sepsis due to pneumonia Hyperparathyroidism Hypercalcemia Anticoagulant long-term use Precordial chest pain (Acute) (HFpEF) heart failure with preserved ejection fraction Paroxysmal A-fib Chronic heart failure with preserved ejection fraction (HFpEF) Labile hypertension Sinus pause Chest pain, atypical Hypertension (Acute) Hypothyroidism KIM (acute kidney injury) (Acute) Acute on chronic heart failure with preserved ejection fraction (HFpEF) Greater trochanteric bursitis of right hip Anxiety (Chronic) Chronic osteoarthritis (Chronic) GERD (gastroesophageal reflux disease) (Chronic) DJD of left shoulder Primary osteoarthritis, right shoulder Diarrhea (Acute) Urinary incontinence (Chronic) Syncope and collapse Arthritis of right shoulder region (Acute) Depression with anxiety (Acute) Insomnia (Acute) Ambulatory dysfunction (Acute) Arthritis Depression Medical History Somatic dysfunction of sacroiliac joint History of blood transfusion 2012 2/2 GASTRIC ULCER History of gastric ulcer 2012 Spinal stenosis Gastric ulcer Atrial fibrillation with rapid ventricular response (11/2022) Fall Moderate mitral regurgitation Mild aortic stenosis Transient ischemic attack (TIA) ~2013>REASON FOR [place]VIX Osteoarthritis Chronic back pain Dyslipidemia Chronic kidney disease stage 3 Hypertension Surgical History 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 History of cardiac cath NO STENTS History of coronary artery bypass graft 1998 (1 VESSEL) S/P epidural steroid injection History of esophagogastroduodenoscopy (EGD) S/p reverse total shoulder arthroplasty RT/LEFT History of abdominoplasty PANNICULECTOMY History of colonoscopy History of arthroplasty of right hip History of arthroplasty of left hip History of hysterectomy with oophorectomy History of arthroplasty of left shoulder History of tonsillectomy and adenoidectomy H/O bilateral salpingo-oophorectomy with hyter Family History Father , age 74 Allergic reaction Mother , 80s CHF (congestive heart failure) Other No family history of adverse response to anesthesia Social History Smoking Status: Never smoker Second Hand Exposure: No; Do You Dip or Chew Tobacco: No; Hx Alcohol Use: Yes Alcohol type: hard liquor Hx Substance Use: No Preferred Language: Emirati Communication Ability: Effective Visual Impairment: No Limitations Recreation Facility Manager Required: No Beliefs That Will Affect Care: None marital status: Single Current Living Situation: Alone Current Living Situation Comment: [facility] How many Children do You have: 0 Feels Safe at Home: Yes Assistive Devices: None Allergies Allergies Allergy/AdvReac Type Severity Reaction Status Date / Time nitroglycerin AdvReac Severe "PROJECTILE Verified 01/29/23 15:15 VOMITTING" ergotamine AdvReac Intermediate vomiting Verified 01/29/23 15:15 Home Meds Home Medications Medication Instructions Recorded Confirmed apixaban 5 mg tablet (Eliquis) 5 mg PO BID 12/13/23 12/13/23 buspirone 10 mg tablet 10 mg PO BID 12/13/23 12/13/23 calcitriol 0.25 mcg capsule 0.25 mcg PO UD 12/13/23 12/13/23 gabapentin 300 mg capsule 300 mg PO TID 12/13/23 12/13/23 irbesartan 75 mg tablet 75 mg PO DAILY 12/13/23 12/13/23 levothyroxine 100 mcg tablet 100 mcg PO DAILY 12/13/23 12/13/23 loperamide 2 mg capsule 2 mg PO Q6H PRN Diarrhea 12/13/23 12/13/23 metoprolol succinate 25 mg 37.5 mg PO DAILY 12/13/23 12/13/23 tablet,extended release 24 hr pantoprazole 40 mg tablet,delayed 40 mg PO DAILY 12/13/23 12/13/23 release rosuvastatin 10 mg tablet 10 mg PO DAILY 12/13/23 12/13/23 trazodone 150 mg tablet 150 mg PO HS 12/13/23 12/13/23 Results & Data (ED) Vital Signs Vital Signs - 24 hr 12/13/23 17:31 12/13/23 17:32 12/13/23 19:00 Temperature 36.7 C Temperature Source Oral Pulse Rate 81 72 Pulse Rate [Apical] 86 Pulse Rhythm [Apical] Regular Pulse Strength [Apical] Normal Respiratory Rate 16 18 Respiratory Effort / Characteristics Non-Labored Spontaneous Non-Labored Spontaneous Respiratory Depth Normal Normal Respiratory Pattern Regular Regular Blood Pressure 192/94 H Blood Pressure [Right Arm] 167/105 H Blood Pressure Mean 126 Blood Pressure Mean [Right Arm] 125 Blood Pressure Position Sitting Blood Pressure Position [Right Arm] Semi-fowlers Pulse Oximetry 99 98 Oxygen Delivery Method Room Air Room Air Sepsis Recent Fever Within 48 Hours No Sepsis New/Unexplained Change in Mental Status N/A Sepsis Action Taken by Nursing No Action Required 12/13/23 21:00 12/13/23 21:23 Temperature Temperature Source Pulse Rate 82 Pulse Rate [Apical] 83 Pulse Rhythm [Apical] Regular Pulse Strength [Apical] Normal Respiratory Rate 18 Respiratory Effort / Characteristics Non-Labored Spontaneous Respiratory Depth Normal Respiratory Pattern Regular Blood Pressure Blood Pressure [Right Arm] 186/95 H Blood Pressure Mean Blood Pressure Mean [Right Arm] 125 Blood Pressure Position Blood Pressure Position [Right Arm] Semi-fowlers Pulse Oximetry 97 Oxygen Delivery Method Room Air Sepsis Recent Fever Within 48 Hours Sepsis New/Unexplained Change in Mental Status Sepsis Action Taken by Residential Medications Current Medication List: was personally reviewed by me Laboratory Data Attestation: I reviewed the patient's lab results. 12/13/23 17:35 12/13/23 17:35 Lab Results 12/13/23 12/13/23 12/13/23 Range/Units 15:16 17:35 18:45 WBC 6.13 (4.8-10.8) K/ul RBC 3.84 L (4.20-5.40) M/uL Hgb 11.2 L (12.0-16.0) g/dl Hct 33.7 L (37.0-47.0) % MCV 87.8 (80.0-100.0) fL MCH 29.2 (25.0-34.0) pg MCHC 33.2 (32.0-36.0) g/dL RDW Std Deviation 47.8 H (36.4-46.3) fL RDW Coeff of Howie 14.7 H (11.5-14.5) % Plt Count 185 (130-400) K/uL MPV 10.3 (9.4-12.4) fL Immature Gran % (Auto) 0.2 % Neut % (Auto) 47.4 % Lymph % (Auto) 38.3 % [place] % (Auto) 10.8 % Eos % (Auto) 2.3 % Baso % (Auto) 1.0 % Neut # (Auto) 2.91 (1.40-6.50) K/uL Lymph # (Auto) 2.35 (1.20-3.40) K/uL [place] # (Auto) 0.66 H (0.11-0.59) K/uL Eos # (Auto) 0.14 (0.00-0.50) K/uL Baso # (Auto) 0.06 (0.00-0.20) K/uL Immature Gran # (Auto) 0.01 (0.01-0.20) K/uL PT 11.6 (9.0-12.0) Seconds INR 1.1 (0.9-1.1) APTT 25 (21-31) Seconds PTT Ratio 0.9 Sodium 140 (136-145) mmol/L Potassium 4.2 (3.5-5.1) mmol/L Chloride 107 (98-107) mmol/L Carbon Dioxide 22 (21-32) mmol/L Anion Gap 11 (3-11) BUN 19 (6-23) mg/dl Creatinine 1.13 (0.6-1.2) mg/dl Est Cr Clr Drug Dosing 33.3 ml/min eGFR 47.09 BUN/Creatinine Ratio 16.8 (10-20) Glucose 86 (70-99(Fasting)) mg/dl Calcium 10.2 (8.6-10.3) mg/dl Magnesium 1.7 (1.7-2.4) mg/dl Total Bilirubin 1.1 H (0.2-1.0) mg/dl AST 14 (13-39) U/L ALT 7 (7-52) U/L Alkaline Phosphatase 54 (34-104) U/L Troponin I High Sens 11.8 (0-14) pg/ml Total Protein 7.3 (6.0-8.3) gm/dl Albumin 4.0 (3.4-5.0) gm/dl Globulin 3.3 (2.5-4.0) gm/dl Albumin/Globulin Ratio 1.2 (0.9-2) TSH 0.087 L (0.300-4.500) uIu/ml Free T4 2.05 H (0.61-1.60) ng/dl Urine Color Yellow Urine Appearance Clear (Clear) Urine pH 7.0 (4.5-7.5) Ur Specific [place] 1.011 (1.000-1.030) Urine Protein Negative (Negative) Urine Glucose (UA) Negative (Negative) Urine Ketones Negative (Negative) Urine Blood Negative (Negative) Urine Nitrite Negative (Negative) Urine Bilirubin Negative (Negative) Urine Urobilinogen Negative (Negative) Ur Leukocyte Esterase Negative (Negative) SARS-CoV-2 (PCR) NEGATIVE (Negative) Influenza Type A (PCR) Negative (Neg) Influenza Type B (PCR) Negative (Neg) RSV (RT-PCR) Negative (Neg) Imaging Data Attestation: I personally reviewed and interpreted this imaging study as follows: My Impression: 1 view chest x-ray was obtained in the emergency department. My interpretation is no free air or definite infiltrate, final report below. CT the brain was obtained in the emergency department. My interpretation is no intracranial hemorrhage or mass effect, final report below. Radiologist's Impression: Chest X-Ray 12/13/23 18:28 SINGLE VIEW CHEST CLINICAL HISTORY: Generalized weakness. FINDINGS: An AP, portable, upright chest radiograph is compared to chest x-ray and chest CT dated 11/03/2023. The patient is status post midline sternotomy. The heart is enlarged and noting atherosclerotic calcification of the thoracic aorta. The pulmonary vasculature is noncongested. A hiatal hernia is noted. Chronic cortical thickening is similar to previous. There is mild bibasilar atelectasis. The lungs and pleural spaces are otherwise clear. No pneumothorax is seen. The the skeletal structures are osteopenic. There are chronic/healed right-sided rib fractures. Bilateral shoulder arthroplasties are in place. IMPRESSION: 1. Cardiomegaly with no active disease in the chest. 2. Hiatal hernia. ACT 112: Negative or not required by law. Electronically signed by: Avel Calero M.D. 12/13/2023 7:[address] 12/13/23 18:29 CT SCAN OF THE BRAIN WITHOUT IV CONTRAST CLINICAL HISTORY: Change in mental status. COMPARISON STUDY: CT of the brain dated 07/16/2022. TECHNIQUE: Unenhanced axial CT scan of the brain is performed from the vertex to the skull base. A dose lowering technique was utilized adhering to the principles of ALARA. CT DOSE: 625.8 mGy.cm FINDINGS: Brain parenchyma: There is age-related involutional change noting moderate subcortical and periventricular microangiopathic disease. There is no hemorrhage, mass effect, or evidence of acute territorial ischemia by CT criteria. Rashid-white matter differentiation is preserved. No extra-axial fluid collection is seen. Ventricles, sulci, cisterns: Prominent secondary to involutional change. Intracranial vasculature: There is atherosclerotic calcification of the cavernous carotid and vertebral arteries. Calvarium: Unremarkable. Sinuses and mastoids: The visualized paranasal sinuses are clear. The mastoid air cells are well pneumatized. Orbits: The bony orbits are grossly intact. There are bilateral ocular lens implants. IMPRESSION: There is no hemorrhage, mass effect, or evidence of acute territorial ischemia by CT criteria. ACT 112: Negative or not required by law. Electronically signed by: Avel Calero M.D. 12/13/2023 6:50 PM Discharge Plan Visit Data Chief Complaint: Confusion Stated Complaint: Med eval ED Provider: Delmar Bar Discharge Problem: Acute alteration in mental status Patient Disposition: Being Evaluated by Hospitalist Forms Stand Alone Forms: My [facility] Prescriptions Prescriptions: No Action loperamide 2 mg capsule 2 mg PO Q6H PRN (Reason: Diarrhea) levothyroxine 100 mcg tablet 100 mcg PO DAILY pantoprazole 40 mg tablet,delayed release (DR/EC) 40 mg PO DAILY trazodone 150 mg tablet 150 mg PO HS buspirone 10 mg tablet 10 mg PO BID gabapentin 300 mg capsule 300 mg PO TID irbesartan 75 mg tablet 75 mg PO DAILY metoprolol succinate 25 mg Tablet Extended Release 24 Hr 37.5 mg PO DAILY calcitriol 0.25 mcg capsule 0.25 mcg PO UD Rx Instructions: three times a week on MON, WED AND FRI rosuvastatin 10 mg tablet 10 mg PO DAILY Eliquis 5 mg tablet 5 mg PO BID Referrals Referrals: Gilbert Calloway MD [Primary Care Provider] -
[2023-12-13 18:54] LABS: Basophils # (auto) 0.06 K/uL (0.00-0.20); Eosinophils # (auto) 0.14 K/uL (0.00-0.50); Eosinophils % (auto) 2.3 %; Hematocrit (blood only) 33.7 % (37.0-47.0); Hemoglobin 11.2 g/dl (12.0-16.0); Immature Granulocytes # (auto) 0.01 K/uL (0.01-0.20); Immature Granulocytes % (auto) 0.2 %; Lymphocytes # (auto) 2.35 K/uL (1.20-3.40); Lymphocytes % (auto) 38.3 %; Mean Corpuscular Hemoglobin 29.2 pg (25.0-34.0); Mean Corpuscular Hgb Conc 33.2 g/dL (32.0-36.0); Mean Corpuscular Volume 87.8 fL (80.0-100.0); Mean Platelet Volume 10.3 fL (9.4-12.4); Monocytes # (auto) 0.66 K/uL (0.11-0.59); Monocytes % (auto) 10.8 %; Neutrophils # (auto) 2.91 K/uL (1.40-6.50); Neutrophils % (auto) 47.4 %; Platelet Count 185 K/uL (130-400); RDW Coefficient of Variation 14.7 % (11.5-14.5); RDW Standard Deviation 47.8 fL (36.4-46.3); Red Blood Count 3.84 M/uL (4.20-5.40); White Blood Count 6.13 K/ul (4.8-10.8)
[2023-12-13 19:07] LABS: Albumin Globulin Ratio 1.2 (0.9-2); BUN Creatinine Ratio 16.8 (10-20); Bilirubin,Total 1.1 mg/dl (0.2-1.0); Calcium 10.2 mg/dl (8.6-10.3); Creatinine Clr Calc Pharmacy 33.3 ml/min; Globulin 3.3 gm/dl (2.5-4.0); Magnesium 1.7 mg/dl (1.7-2.4); Potassium 4.2 mmol/L (3.5-5.1); Total Protein 7.3 gm/dl (6.0-8.3)
[2023-12-13 19:13] LABS: Troponin I High Sensitivity 11.8 pg/ml (0-14)
--- NOTE | 2023-12-13 19:15 | XRay Report ---
SINGLE VIEW CHEST CLINICAL HISTORY: Generalized weakness. FINDINGS: An AP, portable, upright chest radiograph is compared to chest x-ray and chest CT dated 10/20. The patient is status post midline sternotomy. The heart is enlarged and noting atherosclerot ic calcification of the thoracic aorta. The pulmonary vasculature is noncongested. A hiatal hernia is noted. Chronic cortical thickening is similar to previous. There is mild bibasilar atelectasis. The lungs and pleural spaces are otherwise clear. No pneumothorax is seen. The the skeletal structures ar e osteopenic. There are chronic/healed right-sided rib fractures. Bilateral shoulder arthroplasties a re in place. IMPRESSION: 1. Cardiomegaly with no active disease in the chest. 2. Hiatal hernia. ACT 112: Negative or not required by law. Electronically signed by: Avel Calero M.D. 12/13/2023 7:14 PM
[2023-12-13 19:22] LABS: Thyroid Stimulating Hormone 0.087 uIu/ml (0.300-4.500)
[2023-12-13 19:32] LABS: INR 1.1 (0.9-1.1); Partial Thromboplastin Ratio 0.9; Partial Thromboplastin Time 25 Seconds (21-31); Prothrombin Time 11.6 Seconds (9.0-12.0)
[2023-12-13 19:38] LABS: Influenza A virus by PCR Negative (Neg); Influenza B virus by PCR Negative (Neg); RSV by PCR Negative (Neg); SARS CoV2 RNA(COVID-19) Ceph NEGATIVE (Negative)
[2023-12-13 19:58] LABS: T4 Free Thyroxine 2.05 ng/dl (0.61-1.60)
--- NOTE | 2023-12-13 23:16 | History & Physical Report ---
Date of Service December 13, 2023 Assessment & Plan (1) Confusion: Plan: 85-year-old female with past medical history significant for hypothyroidism, history of hypercalcemia, hiatal hernia, thoracic aortic ectasia, chronic diastolic CHF, CAD status post CABG, hypertension, chronic atrial fibrillation, mild aortic stenosis, GERD, CKD stage III osteoarthritis depression, insomnia, mixed incontinence urge and stress currently living at personal-longterm was br ought in because of confusion. Patient was recently in the hospital for acute UTI and fevers. Had 7-day course of IV antibiotics during the hospital stay she was also found to have Mobitz type I heart block and cardiology reduce metoprolol dose to 37.5 mg and also found to have iron deficiency anemia , did okay and was discharged to [facility] facility .Currently at personal-longterm. Patient seem to have forgot medications and some confusion at personal- longterm and brought in here. Patient agrees that she forgot medication for 3 days. But she refuses that she overdosed on any medications. Currently alert and oriented x 3. Able to give her history. Patient says she is eating and drinking okay. Ambulates without support. Denies any fevers. Having headache for last few hours. No dizziness. No blurred vision. No runny nose or sore throat. No cough. No chest pain or shortness of breath ,no nausea,no abdominal pain. Normal bowel and bladder movements. Hemodynamics are okay. Confusion Currently alert and oriented x3 Seems forgot medications for few days at personal-longterm UA is okay. Labs are okay except abnormal thyroid profile. SARS-CoV-2, influenza A and B, RSV negative CT head unremarkable Chest x-ray unremarkable Will monitor Abnormal thyroid profile TSH is low and free T4 is high They were normal last month Patient on Synthyroid 100 mcg daily Patient declines any overdose Will hold Synthyroid Repeat thyroid profile May need to reduce dose or discuss with endocrine Chronic diastolic CHF She was on torsemide as needed last admit Per recent PCP note she is not taking it Will monitor CAD s/p CABG On metoprolol of which dose was reduced last admit On Eliquis and statin Seems losartan held because of hypotension last admission PCP started on a irbesartan Will monitor Hypertension On metoprolol and irbesartan Will monitor Was hypotensive intermittently last admission Lung nodules Needs follow-up Chronic atrial fibrillation On metoprolol and Eliquis GERD On Protonix Anemia Seems iron deficiency Hemoglobin 11.2 today Follow-up with PCP CKD stage III Creatinine 1.1 We will follow labs Depression Insomnia Continue home medications DVT prophylaxis On Eliquis Disposition Med/surge Full code History of Present Illness Chief Complaint: Confusion Primary Care Provider: Gilbert Calloway MD 85-year-old female with past medical history significant for hypothyroidism, history of hypercalcemia, hiatal hernia, thoracic aortic ectasia, chronic diastolic CHF, CAD status post CABG, hypertension, chronic atrial fibrillation, mild aortic stenosis, GERD, CKD stage III osteoarthritis depression, insomnia, mixed incontinence urge and stress currently living at personal-longterm was brought in because of confusion. Patient was recently in the hospital for acute UTI and fevers. Had 7-day course of IV antibiotics during the hospital stay ,she was also found to have Mobitz type I heart block and cardiology reduce metoprolol dose to 37.5 mg and also found to have iron deficiency anemia , did okay and was discharged to [facility] facility .Currently at personal-longterm. Patient seem to have forgot medications and some confusion at personal- longterm and brought in here. Patient agrees that she forgot medication for 3 days. But she refuses that she overdosed on any medications. Currently alert and oriented x 3. Able to give her history. Patient says she is eating and drinking okay. Ambulates without support. Denies any fevers. Having headache for last few hours. No dizziness. No blurred vision. No runny nose or sore throat. No cough. No chest pain or shortness of breath ,no nausea,no abdominal pain. Normal bowel and bladder movements. Hemodynamics are okay. Past medical history. As mentioned above Past surgical history. Liposuction. CABG. Colonoscopy. EGD. Reconstruction of the bilateral shoulder joint. Cataracts. Tonsillectomy. Total abdominal hysterectomy with removal of tubes. Total hip replacement Social history. . No smoking. Alcohol occasional. No drug use. Family history. Father had allergies. Mother had CHF. Brother had CAD, dementia. Allergies Allergy/AdvReac Type Severity Reaction Status Date / Time nitroglycerin AdvReac Severe "PROJECTILE Verified 01/29/23 15:15 VOMITTING" ergotamine AdvReac Intermediate vomiting Verified 01/29/23 15:15 Home Medications Medication Instructions Recorded Confirmed Type apixaban 5 mg tablet (Eliquis) 5 mg PO BID 12/13/23 12/13/23 History buspirone 10 mg tablet 10 mg PO BID 12/13/23 12/13/23 History calcitriol 0.25 mcg capsule 0.25 mcg PO UD 12/13/23 12/13/23 History gabapentin 300 mg capsule 300 mg PO TID 12/13/23 12/13/23 History irbesartan 75 mg tablet 75 mg PO DAILY 12/13/23 12/13/23 History levothyroxine 100 mcg tablet 100 mcg PO DAILY 12/13/23 12/13/23 History loperamide 2 mg capsule 2 mg PO Q6H PRN Diarrhea 12/13/23 12/13/23 History metoprolol succinate 25 mg 37.5 mg PO DAILY 12/13/23 12/13/23 History tablet,extended release 24 hr pantoprazole 40 mg tablet,delayed 40 mg PO DAILY 12/13/23 12/13/23 History release rosuvastatin 10 mg tablet 10 mg PO DAILY 12/13/23 12/13/23 History trazodone 150 mg tablet 150 mg PO HS 12/13/23 12/13/23 History Past Med/Surg History Problem List (Updated 12/13/23 @ 23:27 by Delmar Bar DO) Acute alteration in mental status (Acute) Confusion Mobitz type 1 second degree AV block Costochondritis Elevated troponin (Acute) Weakness (Acute) SOB (shortness of breath) (Acute) History of coronary artery disease (Acute) Precordial chest pain (Acute) CAD (coronary artery disease) Hypophosphatemia Hypomagnesemia Acute on chronic diastolic CHF (congestive heart failure) Pneumonia (Acute) Sepsis due to pneumonia Hyperparathyroidism Hypercalcemia Anticoagulant long-term use Precordial chest pain (Acute) (HFpEF) heart failure with preserved ejection fraction Paroxysmal A-fib Chronic heart failure with preserved ejection fraction (HFpEF) Labile hypertension Sinus pause Chest pain, atypical Hypertension (Acute) Hypothyroidism KIM (acute kidney injury) (Acute) Acute on chronic heart failure with preserved ejection fraction (HFpEF) Greater trochanteric bursitis of right hip Anxiety (Chronic) Chronic osteoarthritis (Chronic) GERD (gastroesophageal reflux disease) (Chronic) DJD of left shoulder Primary osteoarthritis, right shoulder Diarrhea (Acute) Urinary incontinence (Chronic) Syncope and collapse Arthritis of right shoulder region (Acute) Depression with anxiety (Acute) Insomnia (Acute) Ambulatory dysfunction (Acute) Arthritis Depression Medical History Somatic dysfunction of sacroiliac joint History of blood transfusion 2012 03/2 GASTRIC ULCER History of gastric ulcer 2012 Spinal stenosis Gastric ulcer Atrial fibrillation with rapid ventricular response (11/2022) Fall Moderate mitral regurgitation Mild aortic stenosis Transient ischemic attack (TIA) ~2013>REASON FOR PLAVIX Osteoarthritis Chronic back pain Dyslipidemia Chronic kidney disease stage 3 Hypertension Surgical History 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 History of cardiac cath NO STENTS History of coronary artery bypass graft 1998 (1 VESSEL) S/P epidural steroid injection History of esophagogastroduodenoscopy (EGD) S/p reverse total shoulder arthroplasty RT/LEFT History of abdominoplasty PANNICULECTOMY History of colonoscopy History of arthroplasty of right hip History of arthroplasty of left hip History of hysterectomy with oophorectomy History of arthroplasty of left shoulder History of tonsillectomy and adenoidectomy H/O bilateral salpingo-oophorectomy with hyter Family History Father , age 74 Allergic reaction Mother , 80s CHF (congestive heart failure) Other No family history of adverse response to anesthesia Social History Smoking Status: Never smoker Second Hand Exposure: No; Do You Dip or Chew Tobacco: No; Hx Alcohol Use: No Hx Substance Use: No Preferred Language: Polish Communication Ability: Effective Visual Impairment: No Limitations Exercise Physiologist Certified Required: No Beliefs That Will Affect Care: None marital status: Single Current Living Situation: Alone Current Living Situation Comment: [facility] How many Children do You have: 0 Other Information That Helps Us Care for You: No Feels Safe at Home: Yes Safety Concerns: Feels Safe At This Time Assistive Devices: None Review of Systems Review of Systems: All systems reviewed & are unremarkable except as noted in HPI & below Physical Exam Physical Exam: General- Not in distress Head- atraumatic Eyes- PERRL. ENT- oropharynx clear Neck- supple, no JVD. Lungs- clear to auscultation no wheezing or crackles Heart- regular rhythm; no murmur, no gallop Abdomen- normal bowel sounds, soft, nontender, no distension Extremities- trace pretibial edema, no erythema seen Neuro- alert, oriented x 3; PERRL, no facial palsy; no dysarthria; moves extremities. Skin- warm & dry Results & Data Results & Data Vital Signs (Past 12 Hours) Vital Signs Temp Pulse Pulse Resp BP BP Pulse Ox 12/13/23 21:23 82 12/13/23 21:00 83 18 186/95 H 97 12/13/23 19:00 86 18 167/105 H 98 12/13/23 17:32 72 12/13/23 17:31 36.7 C 81 16 192/94 H 99 O2 Del Method 12/13/23 21:23 12/13/23 21:00 Room Air 12/13/23 19:00 Room Air 12/13/23 17:32 12/13/23 17:31 Room Air Diagnostic Findings Laboratory Results WBC 6.13 K/ul (4.8-10.8) 12/13/23 17:35 RBC 3.84 M/uL (4.20-5.40) L 12/13/23 17:35 Hgb 11.2 g/dl (12.0-16.0) L 12/13/23 17:35 Hct 33.7 % (37.0-47.0) L 12/13/23 17:35 MCV 87.8 fL (80.0-100.0) 12/13/23 17:35 MCH 29.2 pg (25.0-34.0) 12/13/23 17:35 MCHC 33.2 g/dL (32.0-36.0) 12/13/23 17:35 RDW Std Deviation 47.8 fL (36.4-46.3) H 12/13/23 17:35 RDW Coeff of Howie 14.7 % (11.5-14.5) H 12/13/23 17:35 Plt Count 185 K/uL (130-400) 12/13/23 17:35 MPV 10.3 fL (9.4-12.4) 12/13/23 17:35 Immature Gran % (Auto) 0.2 % 12/13/23 17:35 Neut % (Auto) 47.4 % 12/13/23 17:35 Lymph % (Auto) 38.3 % 12/13/23 17:35 [place] % (Auto) 10.8 % 12/13/23 17:35 Eos % (Auto) 2.3 % 12/13/23 17:35 Baso % (Auto) 1.0 % 12/13/23 17:35 Neut # (Auto) 2.91 K/uL (1.40-6.50) 12/13/23 17:35 Lymph # (Auto) 2.35 K/uL (1.20-3.40) 12/13/23 17:35 [place] # (Auto) 0.66 K/uL (0.11-0.59) H 12/13/23 17:35 Eos # (Auto) 0.14 K/uL (0.00-0.50) 12/13/23 17:35 Baso # (Auto) 0.06 K/uL (0.00-0.20) 12/13/23 17:35 Immature Gran # (Auto) 0.01 K/uL (0.01-0.20) 12/13/23 17:35 PT 11.6 Seconds (9.0-12.0) 12/13/23 17:35 INR 1.1 (0.9-1.1) 12/13/23 17:35 APTT 25 Seconds (21-31) 12/13/23 17:35 PTT Ratio 0.9 12/13/23 17:35 Sodium 140 mmol/L (136-145) 12/13/23 17:35 Potassium 4.2 mmol/L (3.5-5.1) 12/13/23 17:35 Chloride 107 mmol/L (98-107) 12/13/23 17:35 Carbon Dioxide 22 mmol/L (21-32) 12/13/23 17:35 Anion Gap 11 (3-11) 12/13/23 17:35 BUN 19 mg/dl (6-23) 12/13/23 17:35 Creatinine 1.13 mg/dl (0.6-1.2) 12/13/23 17:35 Est Cr Clr Drug Dosing 33.3 ml/min 12/13/23 17:35 eGFR 47.09 12/13/23 17:35 BUN/Creatinine Ratio 16.8 (10-20) 12/13/23 17:35 Glucose 86 mg/dl (70-99(Fasting)) 12/13/23 17:35 Calcium 10.2 mg/dl (8.6-10.3) 12/13/23 17:35 Magnesium 1.7 mg/dl (1.7-2.4) 12/13/23 17:35 Total Bilirubin 1.1 mg/dl (0.2-1.0) H 12/13/23 17:35 AST 14 U/L (13-39) 12/13/23 17:35 ALT 7 U/L (7-52) 12/13/23 17:35 Alkaline Phosphatase 54 U/L (34-104) 12/13/23 17:35 Troponin I High Sens 11.8 pg/ml (0-14) 12/13/23 17:35 Total Protein 7.3 gm/dl (6.0-8.3) 12/13/23 17:35 Albumin 4.0 gm/dl (3.4-5.0) 12/13/23 17:35 Globulin 3.3 gm/dl (2.5-4.0) 12/13/23 17:35 Albumin/Globulin Ratio 1.2 (0.9-2) 12/13/23 17:35 TSH 0.087 uIu/ml (0.300-4.500) L 12/13/23 17:35 Free T4 2.05 ng/dl (0.61-1.60) H 12/13/23 17:35 Urine Color Yellow 12/13/23 15:16 Urine Appearance Clear (Clear) 12/13/23 15:16 Urine pH 7.0 (4.5-7.5) 12/13/23 15:16 Ur Specific [place] 1.011 (1.000-1.030) 12/13/23 15:16 Urine Protein Negative (Negative) 12/13/23 15:16 Urine Glucose (UA) Negative (Negative) 12/13/23 15:16 Urine Ketones Negative (Negative) 12/13/23 15:16 Urine Blood Negative (Negative) 12/13/23 15:16 Urine Nitrite Negative (Negative) 12/13/23 15:16 Urine Bilirubin Negative (Negative) 12/13/23 15:16 Urine Urobilinogen Negative (Negative) 12/13/23 15:16 Ur Leukocyte Esterase Negative (Negative) 12/13/23 15:16 SARS-CoV-2 (PCR) NEGATIVE (Negative) 12/13/23 18:45 Influenza Type A (PCR) Negative (Neg) 12/13/23 18:45 Influenza Type B (PCR) Negative (Neg) 12/13/23 18:45 RSV (RT-PCR) Negative (Neg) 12/13/23 18:45 Impressions Chest X-Ray 12/13/23 18:28 SINGLE VIEW CHEST CLINICAL HISTORY: Generalized weakness. FINDINGS: An AP, portable, upright chest radiograph is compared to chest x-ray and chest CT dated 11/03/2023. The patient is status post midline sternotomy. The heart is enlarged and noting atherosclerotic calcification of the thoracic aorta. The pulmonary vasculature is noncongested. A hiatal hernia is noted. Chronic cortical thickening is similar to previous. There is mild bibasilar atelectasis. The lungs and pleural spaces are otherwise clear. No pneumothorax is seen. The the skeletal structures are osteopenic. There are chronic/healed right-sided rib fractures. Bilateral shoulder arthroplasties are in place. IMPRESSION: 1. Cardiomegaly with no active disease in the chest. 2. Hiatal hernia. ACT 112: Negative or not required by law. Electronically signed by: Avel Caelro M.D. 12/13/2023 7:[address] 12/13/23 18:29 CT SCAN OF THE BRAIN WITHOUT IV CONTRAST CLINICAL HISTORY: Change in mental status. COMPARISON STUDY: CT of the brain dated 07/16/2022. TECHNIQUE: Unenhanced axial CT scan of the brain is performed from the vertex to the skull base. A dose lowering technique was utilized adhering to the principles of ALARA. CT DOSE: 625.8 mGy.cm FINDINGS: Brain parenchyma: There is age-related involutional change noting moderate subcortical and periventricular microangiopathic disease. There is no hemorrhage, mass effect, or evidence of acute territorial ischemia by CT criteria. Rashid-white matter differentiation is preserved. No extra-axial fluid collection is seen. Ventricles, sulci, cisterns: Prominent secondary to involutional change. Intracranial vasculature: There is atherosclerotic calcification of the cavernous carotid and vertebral arteries. Calvarium: Unremarkable. Sinuses and mastoids: The visualized paranasal sinuses are clear. The mastoid air cells are well pneumatized. Orbits: The bony orbits are grossly intact. There are bilateral ocular lens implants. IMPRESSION: There is no hemorrhage, mass effect, or evidence of acute territorial ischemia by CT criteria. ACT 112: Negative or not required by law. Electronically signed by: Avel Calero M.D. 12/13/2023 6:50 PM ECG Additional Comments: ECG. Sinus tachycardia with first-degree AV block with a rate of 103. Nonspecific T wave abnormalities. Code Status & VTE Plan VTE Prophylaxis Plan VTE Prophylaxis will be ordered: Yes
[2023-12-14] MEDS: ACETAMINOPHEN 500 MG TAB PO STA (01:26)
[2023-12-14] MEDS: LABETALOL HCL IV 5 MG/ML 20ML IV STA (03:32)
[2023-12-14] MEDS: LORazepam 0.5 MG TAB PO STA (04:22)
[2023-12-14 06:47] LABS: Basophils # (auto) 0.04 K/uL (0.00-0.20); Basophils % (auto) 0.7 %; Eosinophils # (auto) 0.14 K/uL (0.00-0.50); Eosinophils % (auto) 2.6 %; Hematocrit (blood only) 34.4 % (37.0-47.0); Hemoglobin 11.2 g/dl (12.0-16.0); Lymphocytes # (auto) 1.73 K/uL (1.20-3.40); Lymphocytes % (auto) 32.3 %; Mean Corpuscular Hemoglobin 28.8 pg (25.0-34.0); Mean Corpuscular Hgb Conc 32.6 g/dL (32.0-36.0); Mean Corpuscular Volume 88.4 fL (80.0-100.0); Mean Platelet Volume 10.1 fL (9.4-12.4); Monocytes # (auto) 0.63 K/uL (0.11-0.59); Monocytes % (auto) 11.8 %; Neutrophils # (auto) 2.81 K/uL (1.40-6.50); Neutrophils % (auto) 52.6 %; Platelet Count 178 K/uL (130-400); RDW Coefficient of Variation 14.8 % (11.5-14.5); RDW Standard Deviation 48.2 fL (36.4-46.3); Red Blood Count 3.89 M/uL (4.20-5.40); White Blood Count 5.35 K/ul (4.8-10.8)
[2023-12-14 07:07] LABS: BUN Creatinine Ratio 15.5 (10-20); Calcium 9.8 mg/dl (8.6-10.3); Creatinine Clr Calc Pharmacy 36.5 ml/min; Magnesium 1.6 mg/dl (1.7-2.4); Potassium 3.7 mmol/L (3.5-5.1)
[2023-12-14 07:21] LABS: Thyroid Stimulating Hormone 0.148 uIu/ml (0.300-4.500)
[2023-12-14] MEDS: MAGNESIUM SULFATE / D5W 1 GM/100 ML BAG IV ONE (08:29)
--- NOTE | 2023-12-14 08:58 | XRay Report ---
XR KUB/Abdomen 1 view CLINICAL HISTORY: ABHILASH lemus TECHNIQUE: 1 view of the abdomen was obtained. Comparison: Comparison is made to abdomen radiographs 07/20/2022 FINDINGS: Lung bases are unremarkable. Degenerative changes are seen in the visualized skeleton. Bilateral hip arthroplasties are seen. The bowel gas pattern is nonobstructive. Small stool burden is seen. IMPRESSION: Nonobstructive bowel gas pattern. ACT 112: Negative or not required by law. Electronically signed by: Heath Rockwell M.D. 12/14/2023 8:56 AM
[2023-12-14] MEDS: METOPROLOL TARTRATE 1 MG/ML VIAL IV STA ×2 (09:33→16:08)
[2023-12-14] MEDS: FAMOTIDINE 20MG IV PUSH 20 MG/5 ML SYR IV STA (09:48)
[2023-12-14] MEDS: CALCITRIOL 0.25 MCG CAPSULE PO SCH (10:12)
[2023-12-14] MEDS: LOSARTAN POTASSIUM 25 MG TAB PO SCH (10:12)
[2023-12-14] MEDS: busPIRone 5 MG TAB PO SCH (10:12)
[2023-12-14] MEDS: GABAPENTIN 300 MG CAP PO SCH (10:12)
[2023-12-14] MEDS: APIXABAN 5 MG TABLET PO SCH (10:12)
[2023-12-14] MEDS: ROSUVASTATIN CALCIUM 10 MG TAB PO SCH (10:13)
[2023-12-14] MEDS: METOPROLOL SUCC 25MG EXT REL TAB PO SCH (10:13)
[2023-12-14] MEDS: PANTOprazole 40 MG TAB PO SCH (10:13)
--- OUTSIDE RECORDS SUMMARY | 2023-12-14 10:49 | External Medical Summary ---
Author Name Unknown Address Unknown Organization [id number][place] [place] [address] [facility] [address] Laboratory Report Ordering Provider Test Date Status GLEN JOLLEY 12/06/2023 10:54:02 Ramila l Observation Date Value Abnormality Reference (Units ) Status Triglyceride 12/06/2023 10:54:02 71 <=174 ( mg/dL) Final Triglyceride Reference Range s (mg/dL):
<150 Acceptable
150-174 Borderline high
175-499 High
>=500 Very high Cholesterol 12/06/2023 10:54:02 167 <200 (mg /dL) Final Total Cholesterol Reference Ranges (mg/dL):
<200 Desirable
200-239 Borderline high
>=240 High HDL 12/06/2023 10:54:02 60 >49 (mg/dL ) Final HDL Cholesterol Reference Ra nges (mg/dL):
>=60 High (Desirable)
<50 Low (Undesirable) For Females
<40 Low (Undesirable) For Males NON-HDL CHOLESTEROL 12/06/2023 10:54:02 107 <=159 (mg/dL) Final Non-HDL Cholesterol Referenc e Range (mg/dL):
<100 Target level for high risk ASCVD patient
<130 Optimal for general population
130-159 Near optimal for general population
160-189 Borderline High
190-219 High
>=220 Very High LDL, (calculated) 12/06/2023 10:54:02 93 <= 129 (mg/dL) Final LDL Cholesterol Reference Ra nges (mg/dL):
<70 Target level for high risk ASCVD patient
<100 Optimal for general population
100-129 Near optimal for general population
130-159 Borderline high
160-189 High
>=190 Very high Performing Location [facility] [place] [address] [place], [place] [address]
--- OUTSIDE RECORDS SUMMARY | 2023-12-14 10:49 | External Medical Summary ---
Author Name Unknown Address Unknown Organization [id number]:[place] [place] [address] [facility] [address] Laboratory Report Ordering Provider Test Date Status JOSE LANDON 12/06/2023 10:54:02 Final Observation Date Value Abnormality Reference (Units ) Status Hemoglobin 12/06/2023 10:54:02 11.5 Below low normal 12 .0-15.3 (g/dL) Final Performing Location LABORATORY [facility] - [address] [facility] [address]
--- OUTSIDE RECORDS SUMMARY | 2023-12-14 10:49 | External Medical Summary ---
Author Name Unknown Address Unknown Organization [id number]:[place] [place] [address] [facility] [address] Laboratory Report Ordering Provider Test Date Status GLEN JOLLEY 12/06/2023 10:54:02 Ramila l Observation Date Value Abnormality Reference (Units ) Status HbA1C 12/06/2023 10:54:02 5.5 4.0-5.6 (% ) Final The use of HbA1c to monitor glycemic status is based on normal hemoglobin and HbA composition. This test should not be used in patients with abnormal hemoglobin that affects the half life of the red blood cell or the in vivo glycation rates. Glucose, estimated average 12/06/2023 10:54:02 111 <126 (mg/dL) Final Performing Location [facility] [place] [address] [facility] [address]
--- OUTSIDE RECORDS SUMMARY | 2023-12-14 10:49 | External Medical Summary | Summary of Care ---
Author Name Unknown Organization [facility] Address [address] [place] [address] Phone [phone] Care Team Providers Care [employer] Official Name Role Phone Gilbert Calloway MD Primary Care Provide r Reason for Visit * Reason Comments Acute Pt c/o BP was 200/90 yesterday, feeling fatigued and SOB; was in the hospital for 2 weeks, yesterday was the first day out. Encounter Details Date Type Department Care Team (Late st Contact Info) Description 12/06/2023 10:20 AM EDT Office Visit Family Medicine [address] [phone] Con Coughlin MD [address] [place] [address] [place] [id number] Chronic heart failure with preserved ejection fraction (HCC)*; Hypertensive heart and kidney disease with chronic diastolic congestive heart failure and stage 3b chronic kidney disease (HCC); Primary hypertension; Acquired hypothyroidism; Anemia in stage 3b chronic kidney disease (HCC) Allergies Active Allergy Reactions Criticality Noted Date Comments Ergotamine 03/01/2000 vomit Nitroglycerin 03/14/2007 vomitting documented as of this encounter (statuses as of 12/06/2023) Medications Medication Sig Dispensed Refills Start Date End Date Status Acetaminophen 500 MG Oral Tablet (Tylenol)Indications :Generalized osteoarthritis Take 1 Tablet by mouth in the morning and 1 Tablet at noon and 1 Tablet before bedtime. 100 Tablet 04/09/2023 Active Advanced Probiotic Oral Capsule Take 1 Capsule by mouth in the morning. 30 Capsule 11/22/2023 Active Metoprolol Succinate ER 25 MG Oral Tablet Extended Release 24 Hour (toPROL XL) Take 1.5 Tablets by mouth in the morning. In the morning.. 30 Tablet 11/22/2023 Active Apixaban 5 MG Oral Tablet (Eliquis) Take 1 Tablet by mouth in the morning and 1 Tablet before bedtime. 180 Tablet 3 11/22/2023 Active Pantoprazole Sodium 40 MG Oral Tablet Delayed Release (Protonix)Indication s:Gastric ulcer without hemorrhage or perforation, unspecified chronicity,Gastroeso phageal reflux disease with esophagitis without hemorrhage Take 1 Tablet by mouth in the morning and 1 Tablet before bedtime. 180 Tablet 2 11/22/2023 Active Benzonatate 100 MG Oral Capsule (Tessalon Perles)Indications:V iral URI with cough Take 1 Capsule by mouth 3 times a day as needed for Cough. 30 Capsule 1 11/22/2023 Active Ondansetron HCl 4 MG Oral Tablet (Zofran)Indications: Nausea TAKE ONE TABLET BY MOUTH EVERY 6 HOURS NEEDED FOR NAUSEA 30 Tablet 1 11/22/2023 Active Calcitriol 0.25 MCG Oral Capsule (Rocaltrol) One tablet by mouth every Sunday, Sunday and Sunday 45 Capsule 1 11/22/2023 Active Loperamide HCl 2 MG Oral Capsule (Imodium)Indications :Chronic diarrhea TAKE ONE CAPSULE BY MOUTH FOUR TIMES DAILY NEEDED 60 Capsule 1 11/22/2023 Active busPIRone HCl 10 MG Oral Tablet (Buspar)Indications: Anxiety state Take 1 Tablet by mouth in the morning and 1 Tablet before bedtime. 60 Tablet 5 11/22/2023 Active Gabapentin 300 MG Oral Capsule (Neurontin)Indicatio ns:DDD (degenerative disc disease), lumbar Take 1 Capsule by mouth in the morning and 1 Capsule at noon and 1 Capsule before bedtime. take 1 capsule three times daily Strength: 300 mg. 90 Capsule 5 11/22/2023 Active Levothyroxine Sodium 100 MCG Oral Tablet (Levoxyl) Take 1 Tablet by mouth daily first thing in the morning. (at least 30 min prior to breakfast or other meds) 90 Tablet 11/22/2023 Active Rosuvastatin Calcium 10 MG Oral Tablet (Crestor)Indications :Dyslipidemia, goal LDL below 100 Take 1 Tablet by mouth at bedtime. 90 Tablet 2 11/22/2023 Active traZODone HCl 150 MG Oral Tablet (Desyrel)Indications :Persistent insomnia Take 1 Tablet by mouth at bedtime. 90 Tablet 1 11/22/2023 Active Irbesartan 75 MG Oral Tablet (Avapro)Indications: Chronic heart failure with preserved ejection fraction (HCC),Hypertensive heart and kidney disease with chronic diastolic congestive heart failure and stage 3b chronic kidney disease (HCC),Primary hypertension One daily 30 Tablet 5 12/06/2023 Active Torsemide 20 MG Oral Tablet (Demadex) Take 1 Tablet by mouth daily as needed (swelling, wt gain>2 lbs). 30 Tablet 11/22/2023 Discontinue d(Patient preference/ discontinua tion) documented as of this encounter (statuses as of 12/06/2023) Active Problems Problem Noted Date Diagnosed Date Cognitive deficits 11/28/2023 Full code status 11/15/2023 Anxiety state 2023 Major depressive disorder wi th single episode, [...] BMP Pro-BNP Her weights are stable on [facility]. She appears euvolemic today. Spondylosis of lumbar [...] discuss her pain concerns. She is aware [facility] does not manage chronic pain meds. With her history of confusion, would recommend against use of narcotic medication. Mild aortic stenosis 07/27/2021 Last Assessment & Plan: Following with cardiology Aortocoronary bypass status 03/09/2021 Chronic atrial fibrillation 03/01/2021 Overview: new onset, [facility] on apixaban Last Assessment & Plan: [...] 08/02/2015 Last Assessment & Plan: Continue synthroid Persistent insomnia 11/04/2013 Last Assessment & Plan: Pt reporting [...] as of this encounter (statuses as of 12/06/2023) Resolved Problems Problem Noted Date Diagnosed Date Resolved Date Anxiety state 10/12/2023 10/12/2023 Last Assessment & Plan: Stable on buspar, Stage 3a chronic kidney disease 10/12/2023 2023 Meningioma, cerebral 07/16/2022 023 Overview: small frontal [...] 06/30/2014 06/26/2017 Overview: hgb 7.4 admitted [facility] CKD (chronic kidney disease) stage 3, [...] as of this encounter (statuses as of 12/06/2023) Immunizations Name Administration Dates Next Due COVID-19 mRNA, LNP-s, No Pre serve, 2-Dose Series (Moderna) 04/04/2020,03/14/2020 Pneumococcal Conjugate Vacc, 13 Valent (Prevnar) 08/26/2014 Pneumococcal Polysaccharide PPV23 (Pneumovax) 10/26/2005 Seasonal Influenza Vac., MDV , IM, 0.5 mL (Fluzone) 11/04/2013,11/22/2012,01/09/2011(Defer red: Patient Refused),12/01/2005 Seasonal Influenza, PF, 6 M & above, IM , (FluLaval or Fluzone) 03/13/2019,12/27/2017 Seasonal Influenza, Quadriva lent Hd (Fluzone Hd) 01/10/2022,11/18/2020 Seasonal Influenza, Quadriva lent Hd, 65+ Yrs 12/06/2019 Seasonal Influenza, Quadriva lent, No Preserve, IM 10/27/2016,11/03/2015,11/19/2014 Seasonal Influenza, Trivalen t, Adjuvanted, 65+ YRS, [...] the money to buy more. Never true 12/05/19 24 Within the past 12 months, t he food you bought just didn't last and you didn't have money to get more. Never true 12/05/2023 Childcare Answer Date Recorded Do you feel overwhelmed with taking care of a child, family member or friend? No 12/05/2023 Does your family need help f inding childcare? (Household - for ages 0-17 years) Not on file 12/05/2023 Clothing Answer Date Recorded Have you been unable to get clothing when it was really needed? No 12/05/2023 Is your family able to get c lothes or diapers when needed? (Household - for ages 0-17 years) Not on file 12/05/2023 Personal Safety Answer Date Recorded Do you feel unsafe or have concerns for your saf ety? No 12/05/2023 Do you have concerns for you r family's safety? (Household - for ages 0-17 years) Not on file 12/05/2023 Utilities Answer Date Recorded Do you have trouble paying y our heating, water, or electric bill? No 12/05/2023 Is your family able to pay t he heat, water, or electric bill? (Household - for ages 0-17 years) Not on file 12/05/2023 Does your family have access to good internet? (Household - for ages 0-17 years) Not on file 12/05/2023 Employment Status Answer Date Recorded Are you unemployed or without regular income? No 12/05/2023 Does the household have a re lar source of income? (Household - for ages 0-17 years) Not on file 12/05/2023 Social Connections Answer Date Recorded How often do you feel lonely or isolated from th ose around you? Never 12/05/2023 Financial Resource Strain Answer Date R ecorded Do you have any trouble payi ng for your medications, or do you think you might in the future? No 12/05/2023 Does your family have troubl e paying for medicine? (Household - for ages 0-17 years) Not on file 12/05/2023 Transportation Needs Answer Date Record ed READ ONLY Do you have troubl e getting a ride to medical visits or work? Never True 12/05/2023 Does your family have a hard time getting a ride to doctors visits? (Household - for ages 0-17 years) Not on file 12/05/2023 Has lack of transportation k ept you from medical appointments, meetings, work, or from getting things needed for daily living? Check all that apply. No 12/05/2023 Do you (or your family) have trouble finding or paying for a ride (transportation)? (Household - for ages 0-17 years) Not on file 12/05/2023 Housing Stability Answer Date Recorded Do you currently live in a s helter or have no steady place to sleep at night? No 12/05/2023 READ ONLY Do you think you a re at risk of becoming homeless? No 12/05/2023 Does your family worry about paying for your home or becoming homeless? (Household - for ages 0-17 years) Not on file 1 Are you homeless or worried that you might be in the future? No 12/05/2023 Are you (or your family) earnest eless or worried that you might be in the future? (Household - for ages 0-17 years) Not on file Food Insecurity Answer Date Recorded Do you need food for this week? No 12/05/2023 Are you able to get enough f ood for your family? (Household - for ages 0-17 years) Not on file 12/05/2023 Does your family need food t his week? (Household - for ages 0-17 years) Not on file 12/05/2023 Do you always have enough fo od for your family? (Household - for ages 0-17 years) Not on file 12/05/2023 Sex and Gender Information Value Date Recorded Sex Assigned at Female 12/11/2022 6:31 PM EDT Gender Identity Female 12/11/2022 6:31 PM EDT Sexual Orientation Straight 05/16/2023 10 :36 AM EDT Job Start Date Occupation Industry Not on file Not on file Not on file documented as of this encounter Last Filed Vital Signs Vital Sign Reading Time Taken Comments Blood Pressure 152/90 12/06/2023 10:32 AM EDT Pulse 82 12/06/2023 10:32 AM EDT Temperature - - Respiratory Rate - - Oxygen Saturation 94% 12/06/2023 10:32 AM EDT Inhaled Oxygen Concentration - - Weight 70.5 kg (155 lb 6.4 oz) 12/06/2023 10:32 AM EDT Height - - Body Mass Index 29.36 04/11/2023 11:01 AM EST documented in this encounter Progress Notes * Con Coughlin MD - 12/06/2023 10:33 AM EDT Being [facility] and her Blood pressure was up yesterday, she is more short of breath. Feet are not swelling. Denies nausea, vomiting, or diarrhea. She is not taking the torsemide. Patient Active Problem List Diagnosis Hip joint replacement status GENERAL OSTEOARTHROSIS Atherosclerosis of chilkoot coronary artery of chilkoot heart without angina pectoris ADVANCE DIRECTIVE INFORMATION Primary hypertension Low back pain radiating to left leg Persistent insomnia Gastroesophageal reflux disease with esophagitis without hemorrhage Acquired hypothyroidism Scoliosis of lumbar spine Bilateral shoulder region arthritis DDD (degenerative disc disease), lumbar Mixed incontinence urge and stress (male)(female) Aortic ectasia, thoracic ([facility]) Other idiopathic scoliosis, thoracolumbar region History of gastric ulcer Greater trochanteric bursitis of right hip Chronic atrial fibrillation ([facility]) 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 3b chronic kidney disease ([facility]) Spondylosis of lumbar region without myelopathy or radiculopathy Mild aortic stenosis Hypercalcemia (HFpEF) heart failure with preserved ejection fraction ([facility]) Hiatal hernia Major depressive disorder with single episode, in partial remission ([facility]) Anxiety state Full code status Cognitive deficits Past Medical History: Diagnosis Date (HFpEF) heart failure with preserved ejection fraction ([facility]) 12/07/2022 Acute on chronic combined systolic and diastolic CHF (congestive heart failure) ([facility]) 03/28/2021 admitted [facility] Anxiety state Anxiety State Aortic valve stenosis, mild 03/01/2021 Aortocoronary bypass status Atherosclerosis of chilkoot coronary artery of chilkoot heart without angina pectoris Atrial fibrillation ([facility]) 12/09/2020 during admission [place] Benign hypertension with CKD (chronic kidney disease) stage III ([facility]) Cataract cortical, senile Chronic atrial fibrillation ([facility]) 03/01/2021 new onset, [facility] on apixaban CKD (chronic kidney disease) stage 3, GFR 30-59 ml/min ([facility]) 07/03/2013 GFR 36.9 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 11/01/2020 Coronary atherosclerosis CAD Cystitis 09/16/2018 >100,000 enterococcus pansensitive Cystitis 08/03/2020 10-100,000 E coli pansensitive Depressive disorder, not elsewhere classified Depression Gastric ulcer 06/30/2014 hgb 7.4 admitted [facility] Herpes zoster without complication 11/18/2020 right hip Hiatal hernia 12/07/2022 moderate Hypercalcemia 12/07/2022 Ca 11.6 Hypertension goal BP (blood pressure) < 140/90 Macular hole of left eye Major depression, single episode MEDICATION USE AGREEMENT 03/19/2012 Tylenol with codeine--Reena Meningioma, cerebral ([facility]) 07/16/2022 small frontal cortex meningioma without mass effect Meningioma, cerebral ([facility]) 08/02/2022 Adding D32.0-Meningioma, cerebral ([facility]) Dx to History Migraines history of migraines--stopped 1998 Mixed incontinence urge and stress (male)(female) Moderate mitral regurgitation 03/01/[address] Ndiaye Other and unspecified noninfectious gastroenteritis and colitis(558.9) 06/24/2013 admitted [facility] Other forms of retinal detachment(361.89) Pneumonia 01/29/2023 admitted [facility] with pneumonia, sepsis, CHF Pneumonia due to COVID-19 virus 12/09/2020 [place], transferred to [facility] Postoperative anemia due to acute blood loss 03/11/2018 hgb 7, given 2 units PRBC hgb 9 on discharge Reflux esophagitis Scoliosis of lumbar spine Syncope and collapse 03/11/2018 hit head, admitted to [facility] Trochanteric bursitis of right hip 10/24/2020 Past Surgical History: Procedure Laterality Date ABDOMEN SURGERY PROCEDURE NEC liposuction CABG, ARTERIAL, TWO 02/[address] HEAD/BRAIN W/O CONTRAST MATERIAL 07/16/2022 chronic cerebellar infarct COLONOSCOPY, DIAGNOSTIC (RECTUM) 08/01/2016 normal bx/[facility] COLORECTAL CANCER SCREEN;W/FLE 08/2000 CT ABD/PELVIS W IV AND W ORAL CONTRAST N/A 10/05/2020 bilateral hip replacements, DJD of back, otherwise unremarkable. CTA HEAD W CONTRAST 07/14/2022 normal CTA NECK W CONTRAST 07/16/2022 no acute findings EGD, FLEXIBLE, DIAGNOSTIC 07/02/2014 esophagitis chronic gastritis with ulcers/inpt [facility] EGD, FLEXIBLE, DIAGNOSTIC 11/11/2014 reflux esophagitis/[facility] EGD, FLEXIBLE, DIAGNOSTIC 08/01/2016 gastritis, normal bx/[facility] INFORMATION repair retinal tear LASERING OF SECONDARY [...] Social Determinants of Health Financial Resource Strain: Low Risk (12/05/2023) Financial Resource Strain Do you have any trouble paying for your medications, or do you think you might in the future? (Adult - for ages 18 years and over): No Does your family have trouble paying for medicine? (Household - for ages 0-17 years): Not on file Food Insecurity: No Food Insecurity (12/05/2023) Food Insecurity Do you need food for this week? (Adult - for ages 18 years and over): No Are you able to get enough food for your family? (Household - for ages 0-17 years): Not on file Does your family need food this week? (Household - for ages 0-17 years): Not on file Do you always have enough food for your family? (Household - for ages 0-17 years): Not on file Transportation Needs: No Transportation Needs (12/05/2023) Transportation Needs Do you have trouble getting a ride to medical visits or work? (Adult - for ages 18 years and over):Never True Does your family have a hard time getting a ride to doctors visits? (Household - for ages 0-17 years): Not on file Has lack of transportation kept you from medical appointments, meetings, work, or from getting things needed for daily living? Check all that apply. (Adult - for ages 18 years and over): No Do you (or your family) have trouble finding or paying for a ride (transportation)? (Household - for ages 0-17 years): Not on file Social Connections: Socially Integrated (12/05/2023) Social Connections How often do you feel lonely or isolated from those around you? (Adult - for ages 18 years and over): Never Housing Stability: Low Risk (12/05/2023) Housing Stability Do you currently live in a alf or have no steady place to sleep at night? (Adult - for ages 18 years and over): No Do you think you are at risk of becoming homeless? (Adult - for ages 18 years and over): No Does your family worry about paying for your home or becoming homeless? (Household - for ages 0-17 years): Not on file Are you homeless or worried that you might be in the future? (Adult - for ages 18 years and over): No Are you (or your family) homeless or worried that you might be in the future? (Household - for ages0-17 years): Not on file Current Outpatient Medications Medication Sig Dispense Refill Acetaminophen 500 MG Oral Tablet (Tylenol) Take 1 Tablet by mouth in the morning and 1 Tablet at noon and 1 Tablet before bedtime. 100 Tablet 0 Advanced Probiotic Oral Capsule Take 1 Capsule by mouth in the morning. 30 Capsule 0 Metoprolol Succinate ER 25 MG Oral Tablet Extended Release 24 Hour (toPROL XL) Take 1.5 Tablets by mouth in the morning. In the morning.. 30 Tablet 0 Apixaban 5 MG Oral Tablet (Eliquis) Take 1 Tablet by mouth in the morning and 1 Tablet before bedtime. 180 Tablet 3 Pantoprazole Sodium 40 MG Oral Tablet Delayed Release (Protonix) Take 1 Tablet by mouth in the morning and 1 Tablet before bedtime. 180 Tablet 2 Benzonatate 100 MG Oral Capsule (Tessalon Perles) Take 1 Capsule by mouth 3 times a day as needed for Cough. 30 Capsule 1 Ondansetron HCl 4 MG Oral Tablet (Zofran) TAKE ONE TABLET BY MOUTH EVERY 6 HOURS NEEDED FOR NAUSEA 30 Tablet 1 Calcitriol 0.25 MCG Oral Capsule (Rocaltrol) One tablet by mouth every Sunday, Sunday and Ar[place]wo13 Capsule 1 Loperamide HCl 2 MG Oral Capsule (Imodium) TAKE ONE CAPSULE BY MOUTH FOUR TIMES DAILY NEEDED 60 Capsule 1 busPIRone HCl 10 MG Oral Tablet (Buspar) Take 1 Tablet by mouth in the morning and 1 Tablet before bedtime. 60 Tablet 5 Gabapentin 300 MG Oral Capsule (Neurontin) Take 1 Capsule by mouth in the morning and 1 Capsule at noon and 1 Capsule before bedtime. take 1 capsule three times daily Strength: 300 mg. 90 Capsule 5 Levothyroxine Sodium 100 MCG Oral Tablet (Levoxyl) Take 1 Tablet by mouth daily first thing in the morning. (at least 30 min prior to breakfast or other meds) 90 Tablet 0 Rosuvastatin Calcium 10 MG Oral Tablet (Crestor) Take 1 Tablet by mouth at bedtime. 90 Tablet 2 traZODone HCl 150 MG Oral Tablet (Desyrel) Take 1 Tablet by mouth at bedtime. 90 Tablet 1 No current facility-administered medications for this visit. Lab Results Component Value Date/Time TSH - [facility] 0.52 11/16/2023 05:30 AM TSH - [facility] 0.34 07/27/2022 11:42 AM TSH - [facility] 0.47 06/08/2021 03:20 PM TSH - [facility] 0.77 06/16/2019 10:39 AM TSH - [facility] 1.03 09/06/2018 03:16 PM TSH - [facility] 0.23 (L) 12/27/2017 01:36 PM TSH - OUTSIDE LAB 0.595 03/11/2018 12:00 AM CBC Results: Results for orders placed or performed in visit on 11/16/23 CBC Result Value Ref Range WBC 4.32 4.00 - 10.80 K/uL RBC 3.39 3.85 - 5.15 M/uL HGB 9.8 (L) 12.0 - 15.3 g/dL HCT 30.8 (L) 36.0 - 45.2 % MCV 90.9 81.5 - 97.5 fL MCH 28.9 27.0 - 34.0 pg MCHC 31.8 32.0 - 36.0 g/dL RDW 14.4 11.5 - 15.5 % PLT 172 140 - 400 K/uL MPV 10.8 6.6 - 11.1 fL Results for orders placed or performed in visit on 05/29/23 BASIC METABOLIC PANEL Result Value Ref Range BUN 24 (H) 6 - 20 mg/dL CREATININE 1.3 (H) 0.5 - 1.0 mg/dL EGFR 40 (L) >=60 mL/min SODIUM 140 135 - 146 mmol/L POTASSIUM 4.5 3.5 - 5.1 mmol/L CHLORIDE 106 98 - 107 mmol/L CO2 23 22 - 32 mmol/L ANION GAP 11 7 - 15 mmol/L GLUCOSE 74 70 - 120 mg/dL CALCIUM 10.0 8.4 - 10.2 mg/dL O: Blood pressure 152/90, pulse 82, weight 70.5 kg (155 lb 6.4 oz), SpO2 94%. She does seem a little short of breath at rest but was able to come all the way down the [place] without stopping using her wheeled walker. Neck is supple without adenopathy or thyromegaly. Chest is symmetrical and moves normally. The lungs are clear without wheezes, rales, rhonchi or rubs, and the heart is regular withoutmurmurs or gallops, or ectopy. PMI not displaced. No pedal edema. A: Chronic heart failure with preserved ejection fraction (HCC) (Primary) - BASIC METABOLIC PANEL; Future; Expected date: 12/06/2023 - BNP, NT-PRO; Future; Expected date: 12/06/2023 - HGB; Future; Expected date: 12/06/2023 Hypertensive heart and kidney disease with chronic diastolic congestive heart failure and stage 3b chronic kidney disease (HCC) - BASIC METABOLIC PANEL; Future; Expected date: 12/06/2023 - BNP, NT-PRO; Future; Expected date: 12/06/2023 - HGB; Future; Expected date: 12/06/2023 Primary hypertension Acquired hypothyroidism Anemia in stage 3b chronic kidney disease (HCC) Other orders - Irbesartan 75 MG Oral Tablet (Avapro); One daily documented in this encounter Plan of Treatment Upcoming Encounters Date Type Department Care Team (Late st Contact Info) Description 04/04/2024 2:40 PM EST Office Visit [place]phrology, [facility] [place] [address] [facility] [place] [address] Tirso Shah MD [address] [place] [address] 06/30/2024 10:00 AM EDT Office Visit Family Medicine [address] [phone] Gilbert Calloway MD [address] [place] [address] [place] [address] Pending Results Name Type Priority Associated Diagnoses Date /Time BNP, NT-PRO Lab Routine Chronic heart failure with preserved ejection fraction (HCC) Hypertensive heart and kidney disease with chronic diastolic congestive heart failure and stage 3b chronic kidney disease (HCC) 12/06/2023 10:54 AM EDT HGB Lab Routine Chronic heart failure with preserved ejection fraction (HCC) Hypertensive heart and kidney disease with chronic diastolic congestive heart failure and stage 3b chronic kidney disease (HCC) 12/06/2023 10:54 AM EDT Scheduled Orders Name Type Priority Associated Diagnoses Orde r Schedule BNP, NT-PRO Lab Routine Chronic heart failure with preserved ejection fraction (HCC) Hypertensive heart and kidney disease with chronic diastolic congestive heart failure and stage 3b chronic kidney disease (HCC) Expected: 12/06/2023 (Approximate), Expires: 12/05/2024 HGB Lab Routine Chronic heart failure with preserved ejection fraction (HCC) Hypertensive heart and kidney disease with chronic diastolic congestive heart failure and stage 3b chronic kidney disease (HCC) Expected: 12/06/2023 (Approximate), Expires: 12/05/2024 Health Maintenance Due Date Last Done Comments DTap/Tdap Vaccines (1 - Tdap) 11/15/1957 Adult Wellness Visit 2002 Depression Monitoring 09/29/2020 09/30/2019 Albumin/Creatinine Ratio 07/28/2023 023, 06/09/2020, 03/13/2019, Additional history exists COVID-19 Vaccine ( season) 2023 01/04/2021, 04/19/2020, 04/04/2020, Additional history exists Influenza Vaccine (FLU shot) (#1) 2023 01/10/2022, 11/18/2020, 12/06/2019, Additional history exists CKD HGB USE SMARTSET 52917 11/15/202411/15, 11/16/2023, 03/06/2023, Additional history exists CKD PHOS USE SMARTSET 98229 11/15/202410/21, 10/04/2022, 06/08/2021, Additional history exists TSH 11/15/2024 11/16/2023, 06/0 09/2022, 06/08/2021, Additional history exists Pneumococcal Vaccine: 65+ Years [...] failure with preserved ejection fraction (HCC)- Primary Hypertensive heart and kidney disease with chronic diastolic congestive heart failure and stage 3b chronic kidney disease (HCC) Primary hypertension Unspecified essential hypertension Acquired hypothyroidism Unspecified hypothyroidism Anemia in stage 3b chronic kidney disease (HCC) documented in this encounter Care Teams Trade Union Official Relationship Specialty Start Date End Date Gilbert Calloway MD [address] [place] [address] [place] [phone] PCP - General Family Medicine 07/30/23 documented as of this encounter
--- OUTSIDE RECORDS SUMMARY | 2023-12-14 10:49 | External Medical Summary | Summary of Care ---
Author Name Unknown Organization [facility] Address [address] [place] [address] Phone [phone] Care Team Providers Care Laborer Demolition Name Role Phone Gilbert Calloway MD Primary Care Provide r Reason for Visit * Reason Comments Outpatient Testing Encounter Details Date Type Department Care Team (Late st Contact Info) Description 12/06/2023 11:00 AM EDT Laboratory Laboratory [address] [place] [phone] [place] [address] Gastric ulcer without hemorrhage or perforation, unspecified chronicity; Gastroesophageal reflux disease with esophagitis without hemorrhage; Encounter for long-term (current) use of medications; Chronic heart failure with preserved ejection fraction (HCC); Hypertensive heart and kidney disease with chronic diastolic congestive heart failure and stage 3b chronic kidney disease (HCC) Allergies Active Allergy Reactions Criticality Noted Date Comments Ergotamine 03/01/2000 vomit Nitroglycerin 03/14/2007 vomitting documented as of this encounter (statuses as of 12/13/2023) Medications Medication Sig Dispensed Refills Start Date End Date Status Acetaminophen 500 MG Oral Tablet (Tylenol)Indications: Generalized [...] hageal reflux disease with esophagitis without hemorrhage Take [...] 10 MG Oral Tablet (Buspar)Indications:A nxiety state Take 1 Tablet by mouth in the morning and 1 Tablet before bedtime. 60 Tablet 5 11/22/2023 Active Gabapentin 300 MG Oral Capsule (Neurontin)Indication [...] Tablet (Crestor)Indications: Dyslipidemia, goal LDL below 100 Take 1 Tablet by mouth at bedtime. 90 Tablet 2 11/22/2023 Active traZODone HCl 150 MG Oral Tablet (Desyrel)Indications: Persistent insomnia Take 1 Tablet by mouth at bedtime. 90 Tablet 1 11/22/2023 Active Irbesartan 75 MG Oral Tablet (Avapro)Indications:C hronic heart failure with preserved ejection fraction (HCC),Hypertensive heart and kidney disease with chronic diastolic congestive heart failure and stage 3b chronic kidney disease (HCC),Primary hypertension One daily 30 Tablet 5 12/06/2023 Active documented as of this encounter (statuses as of 12/13/2023) Active Problems Problem Noted Date Diagnosed Date [...] BMP Pro-BNP Her weights are stable on [facility]. She appears euvolemic today. Spondylosis of [...] her pain concerns. She is aware [facility] does not manage chronic pain [...] as of this encounter (statuses as of 12/13/2023) Resolved Problems Problem Noted Date Diagnosed Date [...] as of this encounter (statuses as of 12/13/2023) Immunizations Name Administration Dates Next Due COVID-19 [...] No 12/05/2023 Does the household have a [facility] source [facility] income? (Household - for ages [...] Care Team (Late st Contact Info) Description 12/26/2023 4:00 PM EST Home Visit [facility] [address] [place] [address] Lana Lieberman, KHARI [address] [place] [address] 04/04/2024 2:40 PM EST Office Visit Nephrology, [facility] [address] [place] [address] Tirso Shah MD [address] [place] [address] 06/30/2024 10:00 AM EDT Office Visit Family Medicine [address] [place] [phone] Gilbert Calloway MD [address] [place] [address] [place] [address] Health Maintenance Due Date Last Done Comments DTap/Tdap Vaccines (1 - Tdap) 11/15/1957 Adult Wellness Visit 2002 Depression Monitoring 09/29/2020 09/30/2019 Albumin/Creatinine Ratio 07/28/2023 023, 06/09/2020, 03/13/2019, Additional history exists COVID-19 Vaccine ( season) 2023 01/04/2021, 04/19/2020, 04/04/2020, Additional history exists Influenza Vaccine (FLU shot) (#1) 2023 01/10/2022, 11/18/2020, 12/06/2019, Additional history exists CKD PHOS USE SMARTSET 38597 11/15/202410/21, 10/04/2022, 06/08/2021, Additional history exists CKD HGB USE SMARTSET 08565 12/05/202412/05, 11/16/2023, 11/16/2023, Additional history exists TSH 12/05/2024 12/06/2023, 10/21, 07/27/2022, Additional history exists Pneumococcal Vaccine: 65+ Years [...] Procedure Name Priority Date/Time Associated Diagnosis Comments BNP (NT-PROBNP) Routine 12/06/2023 10:54 AM EDT Chronic heart failure with preserved ejection fraction (HCC) Hypertensive heart and kidney disease with chronic diastolic congestive heart failure and stage 3b chronic kidney disease (HCC) HGB Routine 12/06/2023 10:54 AM EDT Chronic heart failure with preserved ejection fraction (HCC) Hypertensive heart and kidney disease with chronic diastolic congestive heart failure and stage 3b chronic kidney disease (HCC) VITAMIN B12 Routine 12/06/2023 10:54 AM EDT Gastric ulcer without hemorrhage or perforation, unspecified chronicity Gastroesophageal reflux disease with esophagitis without hemorrhage Encounter for long-term (current) use of medications documented in this encounter Results * (ABNORMAL) HGB (12/06/2023 10:54 AM EDT) HGB 11.5(L) 12.0 - 15.3 g/dL 12/06/2023 11:29 PM EDT LABORATORY [facility] Blood Venous blood specimen / Unknown Venipuncture / Unknown 12/06/2023 10:54 AM EDT 12/06/2023 10:54 AM EDT Con Coughlin MD LAB BLOOD ORDERABLES Performing Organization Address City/State/[facility] Co de Phone Number LABORATORY [facility] [address] [place] [address] * (ABNORMAL) BNP, NT-PRO (12/06/2023 10:54 AM EDT) BNP, NT-Pro 839(H) <300 pg/mL 12/07/2023 2:31 AM EDT LABORATORY [facility] Blood Venous blood specimen / Unknown Venipuncture / Unknown 12/06/2023 10:54 AM EDT 12/06/2023 10:54 AM EDT Narrative [facility] - 12/07/2023 2:31 AM EDT Exclude Heart Failure: <300 pg/mL Diagnose Heart Failure: Age <50 yr: >450 pg/mL 50-75 yr: >900 pg/mL >75 yr: >1800 pg/mL GFR is 30-59 mL/min: >1200 pg/mL or Age-adjusted values GFR <30 mL/min: do not use, not reliable Prognostic threshold: 1000 pg/mL Con Coughlin MD LAB BLOOD ORDERABLES Performing Organization Address City/[facility] [address]/ZIP Co de Phone Number LABORATORY [facility] [address] [place] [address] * VITAMIN B12 (12/06/2023 10:54 AM EDT) Vitamin B12 421 232 - 1,245 pg/mL 12/07/2023 2:31 AM EDT LABORATORY [facility] Blood Venous blood specimen / Unknown Venipuncture / Unknown 12/06/2023 10:54 AM EDT 12/06/2023 10:54 AM EDT Emileebeba Guidocarlene Rodriges [facility] LAB BLOOD ORDERAB LES Performing Organization Address City/[facility] [address]/ZIP Co de Phone Number LABORATORY [facility] [address] [place] [address] documented in this encounter Visit Diagnoses Diagnosis Gastric ulcer without hemorrhage or perforation, unspecified chronicity Gastroesophageal reflux disease with esophagitis without hemorrhage Encounter for long-term (current) use of medications Encounter for long-term (current) use of other medications Chronic heart failure with preserved ejection fraction (HCC) Hypertensive heart and kidney disease with chronic diastolic congestive heart failure and stage 3b chronic kidney disease (HCC) documented in this encounter Care Teams Laborer Demolition Relationship Specialty Start Date End Date Gilbert Calloway MD [address] [place] [address] [place] [address] PCP - General Family Medicine 07/30/23 documented as of this encounter
--- OUTSIDE RECORDS SUMMARY | 2023-12-14 10:49 | External Medical Summary ---
Author Name Unknown Address Unknown Organization [id number]:[facility] [place] [address] [facility] [address] Laboratory Report Ordering Provider Test Date Status COREEN JOLLEYEUGENIE 12/06/2023 10:54:02 Ramila l Observation Date Value Abnormality Reference (Units ) Status TSH 12/06/2023 10:54:02 0.66 0.27-4.20 (uIU/mL) Final Performing Location [facility] - [address] [facility] [address]
--- OUTSIDE RECORDS SUMMARY | 2023-12-14 10:49 | External Medical Summary ---
Author Name Unknown Address Unknown Organization [id number]:LAB[facility]ATORY [facility] [place] [facility] [address] [facility] [address] Laboratory Report Ordering Provider Test Date Status GLEN JOLLEY 12/06/2023 10:54:02 Ramila l Observation Date Value Abnormality Reference (Units ) Status BUN 12/06/2023 10:54:02 24 Above high normal 6-20 (mg/dL) Final Creatinine 12/06/2023 10:54:02 1.4 Above high normal 0.5-1.0 (mg/dL) Final Glomerular filtration rate/1.73 sq M.predicted [Volume Rate/Area] in Serum, Plasma or Blood by Creatinine-based formula (CKD-EPI) 12/06/2023 10:54:02 36 Below low normal >=60 (mL/min) Final eGFR is calculated based on the CKD-EPI 2020 equation. Sodium 12/06/2023 10:54:02 139 135-146 (m mol/L) Final Potassium 12/06/2023 10:54:02 4.6 3.5-5.1 (m mol/L) Final Cl 12/06/2023 10:54:02 106 98-107 (mm ol/L) Final CO2 12/06/2023 10:54:02 23 22-32 (mmo l/L) Final Anion gap 12/06/2023 10:54:02 10 7-15 (mmol /L) Final Glucose 12/06/2023 10:54:02 81 70-120 (mg /dL) Final Calcium 12/06/2023 10:54:02 10.0 8.4-10.2 ( mg/dL) Final Performing Location LABORATORY [facility] [place] [address] [facility] [address]
--- OUTSIDE RECORDS SUMMARY | 2023-12-14 10:49 | External Medical Summary | Summary of Care ---
Author Name Unknown Organization [facility] Address [address] [place] [address] Phone [phone] Care Team Providers Care Glassware Engraver Name Role Phone Gilbert Calloway MD Primary Care Provide r Encounter Details Date Type Department Care Team (Late st Contact Info) Description 12/05/2023 10:00 AM EDT [facility] Visit [facility] [address] [facility] [place] [place] [address] Lana Lieberman, KHARI [address] [place] [address] Allergies Active Allergy Reactions Criticality Noted Date [...] at bedtime. 90 Tablet 1 11/22/2023 Active documented as of this encounter (statuses [...] BMP Pro-BNP Her weights are stable on [facility]. She appears euvolemic today. Spondylosis of lumbar [...] pain concerns. She is aware [facility] does not manage chronic pain meds. 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 Last Assessment & [...] No 12/05/2023 Does the household have a peak behavioral [...] Sign Reading Time Taken Comments Blood Pressure 145/83 12/05/2023 11:49 AM EDT Pulse 80 12/05/2023 11:49 AM EDT Temperature 36.3 C (97.3 F) 12/05/2023 11:49 AM E DT Respiratory Rate 18 12/05/2023 11:49 AM EDT Oxygen Saturation 100% 12/05/2023 11:49 AM EDT Inhaled Oxygen Concentration - - Weight - - Height - - Body Mass Index - - documented in this encounter Progress Notes * Lana Lieberman RN - 12/05/2023 11:39 AM EDT Current Concerns: Patient seen for follow up- arrived at [facility] to visit patient- was told by staff patient was discharged to Independent apartment yesterday-AMA Upon arrival- [facility] health nurse present- reports patient's blood pressure is elevated 200/90- 911 was called. Director Operations arrived- evaluated- VS wnl- patient reports to EMT that there is no chest pain- but then proceeded to report bubbling in her chest- epigastric discomfort. EKG taken while in with patient. Sent to ER physician. Patient not in afib- showed PVC's per metal bench patternmaker Patient asked if took medications this am- states she took morning meds- no evidence of such as pill packs were all full. Noted to be argumentative during visit several times. Has PCP appointment tomorrow with Dr. Coughlin- no transportation arranged. Phone call to Health ride- patient reports she has money to pay for ride. Arranged for patient shrimp picker tomorrow- this nurse asked if guard driver could call to remind patient of appointment- patient reports she does not need any reminders- states that she thought this nurse was her favorite but this nurse will be telling all of her co-workers that she can not remember anything. Patient made aware during phone call with transportation that once arranged this nurse will be leaving the apartment d/t her behavior- she states, " Good, I'm glad to hear that." Details of scheduled shrimp picker and drop off and phone number provided to patient- written on note padand placed on coffee table. Physical Exam: Physical Exam Constitutional: Appearance: Normal appearance. Cardiovascular: Rate and Rhythm: Normal rate. Rhythm irregular. Pulses: Normal pulses. Pulmonary: Effort: Pulmonary effort is normal. Breath sounds: Normal breath sounds. Abdominal: General: Bowel sounds are normal. Palpations: Abdomen is soft. Skin: Capillary Refill: Capillary refill takes 2 to 3 seconds. Neurological: Mental Status: She is alert. Mental status is at baseline. Psychiatric: Comments: Argumentative with this nurse- suspicious of conversation between EMS discussion of options for transportation. Was upset that metal bench patternmaker stepped into different room in apartment to discuss with ER MD of assessment- States, " I really should hear what he is telling them." Review of Systems: Review of Systems Constitutional: Negative. Respiratory: Positive for shortness of breath. Gastrointestinal: Negative. Genitourinary: Negative. Musculoskeletal: Positive for gait problem. Skin: Negative. Hematological: Negative. Psychiatric/Behavioral: Positive for agitation. The patient is nervous/anxious. Care Plan Goal Progress: Patient will remain free of falls. (Progressing) Start: 12/06/23 Expected End: 04/04/24 Orders Placed: No orders of the defined types were placed in this encounter. Medications Given: Care Gaps: Care Gaps Care gaps closed this contact:: Education (12/06/23 406) Type of education: Clinical/disease (12/06/231740) documented in this encounter Plan of Treatment Upcoming Encounters Date Type Department Care Team (Late st Contact Info) Description 12/26/2023 4:00 PM EST Home Visit [facility] [place], [facility] [address] [place] [address] Lana Lieberman, RN [address] [place] [address] 04/04/2024 2:40 PM EST Office Visit Nephrology, [facility] [address] [place] [address] Tirso Shah MD [address] [facility] [place] [address] 06/30/2024 10:00 AM EDT Office Visit Family Medicine [address] [place] [phone] Gilbert Calloway MD [address] [place] [address] [place] [address] Health Maintenance Due Date Last Done Comments DTap/Tdap Vaccines (1 - Tdap) 11/15/1957 Adult Wellness Visit 2002 Depression Monitoring 09/29/2020 09/30/2019 Albumin/Creatinine Ratio 07/28/2023 023, 06/09/2020, 03/13/2019, Additional history exists COVID-19 Vaccine ( season) 2023 01/04/2021, 04/19/2020, 04/04/2020, Additional history exists Influenza Vaccine (FLU shot) (#1) 2023 01/10/2022, 11/18/2020, 12/06/2019, Additional history exists CKD HGB USE SMARTSET 73027 11/15/202411/15, 11/16/2023, 03/06/2023, Additional history exists CKD PHOS USE SMARTSET 78251 11/15/202410/21, 10/04/2022, 06/08/2021, Additional history exists TSH [...] filedocumented as of this encounter Care Teams Glassware Engraver Relationship Specialty Start Date End Date Gilbert Calloway MD [address] [place] [address] [place] [address] PCP - General Family Medicine 07/30/23 documented as of this encounter
--- OUTSIDE RECORDS SUMMARY | 2023-12-14 10:49 | External Medical Summary ---
Author Name Unknown Address Unknown Organization K01:[facility] [place] [address] [place] [address] Laboratory Report Ordering Provider Test Date Status RYAN ZHAO 12/06/2023 10:54:02 Final Observation Date Value Abnormality Reference (Units ) Status Vitamin B12 12/06/2023 10:54:02 290 016-2587 (pg/mL) Final Performing Location [facility] - [address] [place] [address]
--- OUTSIDE RECORDS SUMMARY | 2023-12-14 10:49 | External Medical Summary ---
Author Name Unknown Address Unknown Organization K01:[facility] [place] [address] Laboratory Report Ordering Provider Test Date Status KELSEY LANDONJEROMY 12/06/2023 10:54:02 Final Exclude Heart Failure: <300 pg/mL
Diagnose Heart Failure:
Age <50 yr: >450 pg/mL
50-75 yr: >900 pg/mL
>75 yr: >1800 pg/mL
GFR is 30-59 mL/min: >1200 pg/mL or Age- adjusted values
GFR <30 mL/min: do not use, not reliable

Prognostic threshold: 1000 pg/mL Observation Date Value Abnormality Reference (Units ) Status BNP, Pro-hormone 12/06/2023 10:54:02 839 Above high no rmal <300 (pg/mL) Final Performing Location LABORATORY [facility] [place] [facility] [place] [address]
--- OUTSIDE RECORDS SUMMARY | 2023-12-14 10:49 | External Medical Summary | Summary of Care ---
Author Name Unknown Organization [facility] Address [address] [place] [address] Phone [phone] Care Team Providers Care Spud Driller Name Role Phone Gilbert Calloway MD Primary Care Provide r Reason for Visit * Reason Onset Date Comments Home Health 12/05/2023 Encounter Details Date Type Department Care Team (Late st Contact Info) Description 12/05/2023 Telephone Family Medicine [address] [place] [phone] Gilbert Calloway MD [address] [place] [address] [place] [address] Home Health Allergies Active Allergy Reactions Criticality Noted Date Comments Ergotamine 03/01/2000 vomit Nitroglycerin 03/14/2007 vomitting documented as of this encounter (statuses as of 12/11/2023) Medications Medication Sig Dispensed Refills Start Date [...] as of this encounter (statuses as of 12/11/2023) Active Problems Problem Noted Date Diagnosed Date [...] pain concerns. 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 Last Assessment & Plan: Stable no angina -continue rosuvastatin, metopropolol, Primary hypertension Gastroesophageal reflux dise ase with esophagitis without hemorrhage Last Assessment & Plan: symptoms controlled on pantoprazole Scoliosis of lumbar spine Mixed incontinence urge and stress (male)(female ) documented as of this encounter (statuses as of 12/11/2023) Resolved Problems Problem Noted Date Diagnosed Date [...] as of this encounter (statuses as of 12/11/2023) Immunizations Name Administration Dates Next Due COVID-19 [...] 12/05/2023 Does the household have a re gular [...] Telephone Encounter - Maylin Barfield RN - 12/11/2023 1:40 PM EDT No answer, voice mail box is full. My G sent * Telephone Encounter - Gilbert Calloway MD - 12/07/2023 1:53 PM EDT I agree with urgent eval and ER visit - if pt continues to refused can we help pt get in to see us next week * Telephone Encounter - Daiana Will LPN - 12/07/2023 1:15 PM EDT HH Concerns Connie PT, Calling from: Wes Report/Concerns of: no feeling well Symptoms: see narrative Vitals: T 98.2 P 76 RR 20 BP 102/60 SP O2 NA Connie does not have pulse oximeter with her. Narrative: pt is still not feeling good, feels like she has labored breathing but visual she doesn't look labored. She feels fatigued, she feels like heart is beating hard- skipping beats, chest feels heavy. Pulse feels even when checked. Started irbesartan this morning after OV with Dr Mcduffie on 12/05. No cp numbness headache. Pt is refusing to go to ER per Connie. Called office spoke with Flor, pt was advise previously to Er if she is feeling worse. Message will be reviewed by PCP and office will call with any further instruction/recommendations. Connie verbalized understand and will relay message to pt. Pt continues to refuse ER. Call back patient with any advice or orders at [phone] * Telephone Encounter - Daiana Will LPN - 12/05/2023 10:49 AM EDT HH Concerns Silvia, Calling from: Wes Report/Concerns of: BP and a-fib Symptoms: see narrative Vitals: T 97.3 P 109 irregular RR 18 BP 200/90 SP O2 100%RA Lung sounds clear Weight 153.6 Narrative: concerned about A-fib. Pulse 109 irregular BP 200/90 pt has sob and fatigue. No cp or palpitations. Recheck BP 170/80 Called office spoke with Nita who was advised by Dionne to send pt to ER. Pt is declining to go to ER. Wilma and Yenni both educated pt on cardiovascular risk. Pt indicated shewould think about going to ER and requested appt in [place] office. Scheduled appt with Dr mcduffie on 12/05 she will call back if she goes to ER. documented in this encounter Plan of Treatment Upcoming Encounters Date Type Department Care Team (Late st Contact Info) Description 12/26/2023 4:00 PM EST Home Visit [place], [facility] [address] [place] [address] Lana Lieberman, RN [address] [place] [address] 04/04/2024 2:40 PM EST Office Visit Nephrology, [place] [address] [facility] [place] [address] Tirso Shah MD [address] [facility] [address] [place] [address] 06/30/2024 10:00 AM EDT Office Visit Family [address] [place] [phone] Gilbert Calloway MD [address] [place] [address] [place] [address] Health Maintenance Due Date Last Done Comments DTap/Tdap Vaccines (1 - Tdap) 11/15/1957 Adult Wellness Visit 2002 Depression Monitoring 09/29/2020 09/30/2019 Albumin/Creatinine Ratio 07/28/2023 023, 06/09/2020, 03/13/2019, Additional history exists COVID-19 Vaccine ( season) 2023 01/04/2021, 04/19/2020, 04/04/2020, Additional history exists Influenza Vaccine (FLU shot) (#1) 2023 01/10/2022, 11/18/2020, 12/06/2019, Additional history exists CKD PHOS USE SMARTSET 48481 11/15/202410/21, 10/04/2022, 06/08/2021, Additional history exists CKD HGB USE SMARTSET 25344 12/05/202412/05, 11/16/2023, 11/16/2023, Additional history exists TSH [...] filedocumented as of this encounter Care Teams Spud Driller Relationship Specialty Start Date End Date Gilbert Calloway MD [address] [place] [address] [place] [address] PCP - General Family Medicine 07/30/23 documented as of this encounter
--- OUTSIDE RECORDS SUMMARY | 2023-12-14 10:49 | External Medical Summary | Summary of Care ---
Author Name Unknown Organization [facility] Address [address] [place] [address] Phone [phone] Care Team Providers Care Weir Fisherman Name Role Phone Gilbert Calloway MD Primary Care Provide r Reason for Visit * Reason Comments Outpatient Testing Encounter Details Date Type Department Care Team (Late st Contact Info) Description 12/06/2023 11:00 AM EDT Laboratory Laboratory [address] [place] [phone] [place] [address] Gastric ulcer without hemorrhage or perforation, unspecified [...] BMP Pro-BNP Her weights are stable on [facility]. 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 (Household - for [...] Description 04/04/2024 2:40 PM EST Office [facility] [address] [place] [address] Tirso Shah MD 200 [facility] [place] [address] 06/30/2024 10:00 AM EDT Office Visit Family Medicine [address] [place] [phone] Gilbert Calloway MD [address] [place] [address] [place] [address] Pending Results Name Type Priority Associated Diagnoses Date /Time VITAMIN B12 Lab Routine Gastric ulcer without hemorrhage or perforation, unspecified chronicity Gastroesophageal reflux disease with esophagitis without hemorrhage Encounter for long-term (current) use of medications 12/06/2023 10:54 AM EDT BNP, NT-PRO Lab Routine Chronic heart failure [...] kidney disease (HCC) 12/06/2023 10:54 AM EDT Health Maintenance Due Date Last Done Comments DTap/Tdap Vaccines (1 - Tdap) 11/15/1957 Adult Wellness Visit 2002 Depression Monitoring 09/29/2020 09/30/2019 Albumin/Creatinine Ratio 07/28/2023 023, 06/09/2020, 03/13/2019, Additional history exists COVID-19 Vaccine ( season) 2023 01/04/2021, 04/19/2020, 04/04/2020, Additional history exists Influenza Vaccine (FLU shot) (#1) 2023 01/10/2022, 11/18/2020, 12/06/2019, Additional history exists CKD HGB USE SMARTSET 76808 11/15/202411/15, 11/16/2023, 03/06/2023, Additional history exists CKD PHOS USE SMARTSET 35954 11/15/2024 09/2 08/2023, 10/04/2022, 06/08/2021, Additional history exists TSH 11/15/2024 [...] as of this encounter Visit Diagnoses Diagnosis Gastric ulcer [...] (HCC) documented in this encounter Care Teams Weir Fisherman Relationship Specialty Start Date End Date Gilbert Calloway MD [address] [place] [address] [place] [address] PCP - General Family Medicine 07/30/23 documented as of this encounter
--- OUTSIDE RECORDS SUMMARY | 2023-12-14 10:49 | External Medical Summary | Summary of Care ---
Author Name Unknown Organization [facility] Address [address] [place] [address] Phone [phone] Care Team Providers Care Life Enrichment Director Name Role Phone Gilbert Calloway MD Primary Care Provide r Reason for Visit * Reason Onset Date Comments Home Health 12/05/2023 Encounter Details Date Type Department Care Team (Late st Contact Info) Description 12/05/2023 Telephone Family Medicine [address] [place] [phone] Gilbert Calloway MD [address] [place] [address] [place] [address] Home Health Allergies Active Allergy Reactions Criticality Noted Date Comments Ergotamine 03/01/2000 vomit Nitroglycerin 03/14/2007 vomitting documented as of this encounter (statuses as of 12/07/2023) Medications Medication Sig Dispensed Refills Start Date [...] as of this encounter (statuses as of 12/07/2023) Active Problems Problem Noted Date Diagnosed Date 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[place] co ronary artery of [place] heart without angina pectoris Last Assessment & Plan: Stable no angina -continue rosuvastatin, metopropolol, Primary hypertension Gastroesophageal reflux dise ase with esophagitis without hemorrhage Last Assessment & Plan: symptoms controlled on pantoprazole Scoliosis of lumbar spine Mixed incontinence urge and stress (male)(female ) documented as of this encounter (statuses as of 12/07/2023) Resolved Problems Problem Noted Date Diagnosed Date [...] as of this encounter (statuses as of 12/07/2023) Immunizations Name Administration Dates Next Due COVID-19 [...] patient with any advice or orders at [phone] * Telephone Encounter - Daiana Will LPN [...] Description 12/26/2023 4:00 PM EST Home Visit [facility] at [place], [facility] [address] [facility] [place] [address] Lana Lieberman, KHARI [address] [place] [address] 04/04/2024 2:40 PM EST Office Visit Nephrology, Caroline Sparks 200 [facility] [place] [address] Tirso Shah MD 200 [facility] [place] [address] 06/30/2024 10:00 AM EDT Office Visit Family Medicine [address] [place] [phone] Gilbert Calloway MD [address] [place] [address] [place] [address] Health Maintenance Due Date Last Done Comments DTap/Tdap Vaccines (1 - Tdap) 11/15/1957 Adult Wellness Visit 2002 Depression Monitoring 09/29/2020 09/30/2019 Albumin/Creatinine Ratio 07/28/2023 023, 06/09/2020, 03/13/2019, Additional history exists COVID-19 Vaccine ( season) 2023 01/04/2021, 04/19/2020, 04/04/2020, Additional history exists Influenza Vaccine (FLU shot) (#1) 2023 01/10/2022, 11/18/2020, 12/06/2019, Additional history exists CKD PHOS USE SMARTSET 67710 11/15/202410/21, 10/04/2022, 06/08/2021, Additional history exists CKD HGB USE SMARTSET 89532 12/05/202412/05, 11/16/2023, 11/16/2023, Additional history exists TSH [...] filedocumented as of this encounter Care Teams Life Enrichment Director Relationship Specialty Start Date End Date Gilbert Calloway MD [address] [place] [address] [place] [address] PCP - General Family Medicine 07/30/23 documented as of this encounter
--- OUTSIDE RECORDS SUMMARY | 2023-12-14 10:50 | External Medical Summary | Summary of Care ---
Author Name Unknown Organization [facility] Address [address] [place] [address] Phone [phone] Care Team Providers Care Pilot Can Router Name Role Phone Gilbert Calloway MD Primary Care Provide r Reason for Visit * Reason Comments Home Visit Encounter Details Date Type Department Care Team (Late st Contact Info) Description 11/28/2023 3:00 PM EDT Office Visit [facility] [address] [place] [address] Vero Ken PA-C [address] [place] [address] Cognitive deficits*; Hypertensive heart and kidney disease with chronic diastolic congestive heart failure and stage 3b chronic kidney disease (HCC); Chronic atrial fibrillation (HCC); Major depressive disorder with single episode, in partial remission (HCC) Allergies Active Allergy Reactions Criticality Noted Date Comments Ergotamine 03/01/2000 vomit Nitroglycerin 03/14/2007 vomitting documented as of this encounter (statuses as of 11/28/2023) Medications Medication Sig Dispensed Refills Start Date [...] FOR NAUSEA 30 Tablet 1 11/22/2023 Active Torsemide 20 MG Oral Tablet (Demadex) Take 1 Tablet by mouth daily as needed (swelling, wt gain>2 lbs). 30 Tablet 11/22/2023 Active Calcitriol 0.25 MCG Oral Capsule [...] as of this encounter (statuses as of 11/28/2023) Active Problems Problem Noted Date Diagnosed Date [...] Pro-BNP [place] [facility] She appears euvolemic today. Spondylosis of lumbar [...] EARLY on apixaban Last Assessment & Plan: Her 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tribal co ronary artery of tribal heart without angina pectoris Last Assessment & Plan: Stable no angina -continue rosuvastatin, metopropolol, Primary hypertension Gastroesophageal reflux dise ase with esophagitis without hemorrhage Last Assessment & Plan: symptoms controlled on pantoprazole Scoliosis of lumbar spine Mixed incontinence urge and stress (male)(female ) documented as of this encounter (statuses as of 11/28/2023) Resolved Problems Problem Noted Date Diagnosed Date [...] as of this encounter (statuses as of 11/28/2023) Immunizations Name Administration Dates Next Due COVID-19 [...] as of this encounter Progress Notes * Vero Ken PA-C - 11/28/2023 2:37 PM EDT Subjective: Zoya Howard is a 85 year old female. Chief Complaint Patient presents with Home Visit HPI: I was asked to assess pt at Assisted Living facility where pt currently resides for some behavior issues. Pt is known to me from a recent SNF stay at [facility] for UTI and pneumonia which was treated at [facility]. While at [facility], pt was noted to have signs of cognitive deficits. Pt wouldhave Therapy and an hour or so later ask when she is going to have Therapy because "I haven't had any". She will also ask: "when am I going to see a doctor?" . Pt has been visited by Dr Valles or me almost everyday and can't seem to remember. Pt scored 15/15 on two BIMS testing but prior to discharge to Assisted Living and she scored 12/15. Pt has good immediate recall but cannot remember events after an hour or more. Pt had a home evaluation prior to discharge back to her apartment on [address] [facility] [address] but the apartment was in severe disarray and it was deemed unsafe for pt to return back toher apartment at this time. She is currently residing at [facility] and asks numerous times throughout the day when she is going back to her apartment. Pt doesn't remember having Therapy at [place]. Vital signs stable. Pt is eating and drinking well. Pt is requesting pain medications for "pain all over". Pt does not clinically appear to be having any pain issues. She was on prescription narcotics in the past but pt has not had any during her SNF stay and has been discouraged to resume them. She also wants Ativan which she used to take chronically but she was not taking these either for quite some time. She is on Buspar BID prn currently. She does not exhibit any significant anxiety during my assessments. CBC Results: Results for orders placed or [...] K/uL MPV 10.8 6.6 - 11.1 fL Hemoglobin Results: Lab Results Component Value Date/Time HGB 9.8 (L) 11/16/2023 05:30 AM HGB 10.6 (L) 03/06/2023 02:29 PM HGB 12.0 10/04/2022 11:59 AM HGB 10.9 (A) 05/09/2021 12:00 AM HGB 11.8 (L) 06/16/2019 10:39 AM HGB 11.2 (L) 05/27/2019 01:45 PM HGB 11.6 (L) 09/06/2018 03:16 PM Basic Panel Results: Results for orders placed or performed [...] mg/dL CALCIUM 10.0 8.4 - 10.2 mg/dL Creatinine Results: Lab Results Component Value Date/Time CREATININE - [facility] 1.3 (H) 05/29/2023 03:45 PM CREATININE - [facility] 2.7 (H) 03/06/2023 02:29 PM CREATININE - [facility] 1.5 (H) 10/04/2022 11:59 AM CREATININE - [facility] 1.08 05/09/2021 12:00 AM CREATININE - [facility] 2.20 (A) 05/07/2021 12:00 AM CREATININE - [facility] 1.4 (H) 06/16/2019 10:39 AM CREATININE - [facility] 1.3 (H) 03/13/2019 04:19 PM CREATININE - [facility] 1.3 (H) 09/06/2018 03:16 PM CREATININE KEVYN 64 06/16/2019 10:39 AM CREATININE, RAND URINE-MET 147 03/08/2009 03:43 PM CREATININE, RAND URINE-VMA 147 03/08/2009 03:43 PM CREATININE, RANDOM URINE - [facility] 160 07/27/2022 11:42 AM CREATININE, RANDOM URINE - [facility] 172 09/09/2020 04:45 PM CREATININE, RANDOM URINE - [facility] 57 06/09/2020 10:57 AM CREATININE, RANDOM URINE - [facility] 87 03/13/2019 04:19 PM CREATININE, RANDOM URINE - [facility] 84 05/16/2018 08:52 AM CREATININE, RANDOM URINE - [facility] 110 12/21/2016 01:46 PM Potassium Results: Lab Results Component Value Date/Time POTASSIUM - [facility] 4.5 05/29/2023 03:45 PM POTASSIUM - [facility] 4.1 03/06/2023 02:29 PM POTASSIUM - [facility] 3.6 10/04/2022 11:59 AM POTASSIUM - [facility] 4.5 05/09/2021 12:00 AM POTASSIUM - [facility] 4.3 05/07/2021 12:00 AM POTASSIUM - [facility] 5.1 06/16/2019 10:39 AM POTASSIUM - [facility] 5.4 (H) 03/13/2019 04:19 PM POTASSIUM - [facility] 4.5 09/06/2018 03:16 PM Sodium Results: Lab Results Component Value Date/Time SODIUM - [facility] 140 05/29/2023 03:45 PM SODIUM - [facility] 137 03/06/2023 02:29 PM SODIUM - [facility] 141 10/04/2022 11:59 AM SODIUM - [facility] 142 06/16/2019 10:39 AM SODIUM - [facility] 139 03/13/2019 04:19 PM SODIUM - [facility] 140 09/06/2018 03:16 PM TSH Results: Lab Results Component Value Date/Time TSH - [facility] 0.52 11/16/2023 05:30 AM TSH - [facility] 0.34 07/27/2022 11:42 AM TSH - [facility] 0.47 06/08/2021 03:20 PM TSH - [facility] 0.77 06/16/2019 10:39 AM TSH - [facility] 1.03 09/06/2018 03:16 PM TSH - [facility] 0.23 (L) 12/27/2017 01:36 PM TSH - OUTSIDE LAB 0.595 03/11/2018 12:00 AM PMH: Patient Active Problem List Diagnosis Hip joint replacement status GENERAL OSTEOARTHROSIS Atherosclerosis of tribal coronary artery of tribal heart without angina pectoris ADVANCE DIRECTIVE INFORMATION [...] with preserved ejection fraction (HCC) Hiatal hernia Major depressive disorder with single episode, in partial remission ([facility]) Anxiety state Full code status Current Outpatient Medications Medication Sig Dispense Refill [...] HOURS NEEDED FOR NAUSEA 30 Tablet 1 Torsemide 20 MG Oral Tablet (Demadex) Take 1 Tablet by mouth daily as needed (swelling, wt gain>2 lbs). 30 Tablet 0 Calcitriol 0.25 MCG Oral Capsule (Rocaltrol) One tablet by mouth every Sunday, Sunday and [id number] Capsule 1 Loperamide HCl 2 MG Oral [...] (HFpEF) heart failure with preserved ejection fraction ([facility]) 12/07/2022 Acute on chronic combined systolic and diastolic CHF (congestive heart failure) ([facility]) 03/28/2021 admitted [facility] Anxiety state Anxiety State Aortic valve stenosis, mild 03/01/2021 Aortocoronary bypass status Atherosclerosis of tribal coronary artery of tribal heart without angina pectoris Atrial fibrillation ([facility]) 12/09/2020 during admission [facility] Benign hypertension with CKD (chronic kidney disease) stage III ([facility]) Cataract cortical, senile Chronic atrial fibrillation ([facility]) 03/01/2021 new onset, [facility] on apixaban CKD (chronic kidney disease) stage 3, GFR 30-59 ml/min ([facility]) 07/03/2013 GFR 36.9 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 11/01/2020 Coronary atherosclerosis CAD Cystitis 09/16/2018 >100,000 enterococcus pansensitive Cystitis 08/03/2020 10-100,000 E coli pansensitive Depressive disorder, not elsewhere classified Depression Gastric ulcer 06/30/2014 hgb 7.4 admitted [facility] Herpes zoster without complication 11/18/2020 right hip Hiatal hernia 12/07/2022 moderate Hypercalcemia 12/07/2022 Ca 11.6 Hypertension goal BP (blood pressure) < 140/90 Macular hole of left eye Major depression, single episode MEDICATION USE AGREEMENT 03/19/2012 Tylenol with codeine--Reena Meningioma, cerebral ([facility]) 07/16/2022 small frontal cortex meningioma without mass effect Meningioma, cerebral ([facility]) 08/02/2022 Adding D32.0-Meningioma, cerebral ([facility]) Dx to History Migraines history of migraines--stopped 1998 Mixed incontinence urge and stress (male)(female) Moderate mitral regurgitation 03/01/[address] Ndiaye Other and unspecified noninfectious gastroenteritis and colitis(558.9) 06/24/2013 admitted [facility] Other forms of retinal detachment(361.89) Pneumonia 01/29/2023 admitted [facility] with pneumonia, sepsis, CHF Pneumonia due to COVID-19 virus 12/09/2020 [place], transferred to [facility] Postoperative anemia due to acute blood loss 03/11/2018 hgb 7, given 2 units PRBC hgb 9 on discharge Reflux esophagitis Scoliosis of lumbar spine Syncope and collapse 03/11/2018 hit head, admitted to [facility] Trochanteric bursitis of right hip 10/24/2020 Past Surgical History: Procedure Laterality Date ABDOMEN SURGERY PROCEDURE NEC liposuction CABG, ARTERIAL, TWO 02/[address] HEAD/BRAIN W/O CONTRAST MATERIAL 07/16/2022 chronic cerebellar infarct COLONOSCOPY, DIAGNOSTIC (RECTUM) 08/01/2016 normal bx/[facility] COLORECTAL CANCER SCREEN;W/FLE 08/2000 CT ABD/PELVIS W IV AND W ORAL CONTRAST N/A 10/05/2020 bilateral hip replacements, DJD of back, otherwise unremarkable. CTA HEAD W CONTRAST 07/14/2022 normal CTA NECK W CONTRAST 07/16/2022 no acute findings EGD, FLEXIBLE, DIAGNOSTIC 07/02/2014 esophagitis chronic gastritis with ulcers/inpt [facility] EGD, FLEXIBLE, DIAGNOSTIC 11/11/2014 reflux esophagitis/[facility] EGD, FLEXIBLE, DIAGNOSTIC 08/01/2016 gastritis, normal bx/[facility] INFORMATION repair retinal tear LASERING OF SECONDARY [...] Brother CAD Heart Disorder Sister CAD Family Status Relation Status Mo Fa Bro at age 82 Sis Alive CAD Bro Alive CAD Bro at age 40 Bro at age 44 Bro (Not Specified) Bro (Not Specified) Bro (Not Specified) Sis (Not Specified) Social History Tobacco Use Smoking status: Never Smokeless tobacco: Never Substance Use Topics Alcohol use: Yes Comment: OCC-- 2oz per week Vaping/E-Cigarette Use Vaping/E-Cigarette Substances Vaping/E-Cigarette Devices Review of Systems: obtained from pt and staff General: No change in weight, No weakness, No fatigue, and No fevers, sweats, or chills Ears: No recent change in hearing, No tinnitus or vertigo, No ear pain, and No ear discharge Nose: No h/o frequent colds or sinusitis, No nasal stuffiness, No h/o hay fever, and No significantepistaxis Throat/Oropharynx: No teeth or gum problems, No bleeding gums, No tongue complaints, No sore throat, and No recent change in voice or hoarseness Respiratory: No cough, sputum, or hemoptysis, No wheezing, No shortness of breath, and No recent change in breathing Cardiac: No chest pain, No shortness of breath, No dyspnea on exertion, No orthopnea, No paroxysmalnocturnal dyspnea, No edema, No palpitations, and No syncope Gastrointestinal: No dysphagia, No significant heartburn, No significant change in appetite, No nausea, vomiting, diarrhea, or constipation, No hematemesis, No blood in stools or black tarry stools, No abdominal bloating or early satiety, and No abdominal pain Urinary: No urinary frequency, No dysuria, No hematuria, No urinary urgency, No polyuria, No nocturia, No incontinence, No hesitancy, and No sensation of incomplete voiding Psychiatric: see HPI Objective: Vital signs reviewed Physical Exam: General: alert, healthy, and no distress Ears: External ears normal, Canals clear, TM's Normal Nose: no mucosal erythema, no mucosal edema, no purulent discharge Oropharynx: no exudate, no erythema, lips, buccal mucosa, and tongue normal, and mucous membranes are moist Heart: irreg irreg rhythm, no murmur, and no gallops Lungs: chest symmetric with normal AP diameter, no chest deformities noted, no chest wall tenderness, lungs clear to auscultation Abdomen: abdomen soft, non-tender, normal bowel sounds, and no masses or organomegaly Skin: skin color, texture, turgor are normal, no rashes or significant lesions Psych: good mood. Asks same question repeatedly during my assessment. ASSESSMENT/PLAN: Cognitive deficits (Primary) Pt having definite cognitive deficits At this time, it is unsafe for pt to go back to her apartment Discussed this with patient who insists on going home Pt will need to have SNF followup with her PCP for further assessment. Pt may need abraham psych assessment Hypertensive heart and kidney disease with chronic diastolic congestive heart failure and stage 3b chronic kidney disease (HCC) Stable CKD and no active CHF Continue Toprol XL 25mg daily Chronic atrial fibrillation (HCC) Stable rate Continue Eliquis BID Major depressive disorder with single episode, in partial remission (HCC) Continue Buspar BID prn and Trazodone HS as directed Total time spent with patient, 44 minutes with over half time spent counseling patient, reviewing labs, medications and plans of care Vero Ken PA-C documented in this encounter Plan of Treatment Upcoming Encounters Date Type Department Care Team (Late st Contact Info) Description 11/29/2023 2:30 PM EDT [facility] [address] [facility] [place] [address] William Daniel, KHARI [address] [facility] [place] [address] 04/04/2024 2:40 PM EST Office Visit Nephrology, [place] Sparks [address] [place] [address] Tirso Shah MD 200 [facility] [place] [address] 06/30/2024 10:00 AM EDT Office Visit Family [address] [phone] Gilbert Calloway MD [address] [place] [address] [place] [phone] Health Maintenance Due Date Last Done Comments DTap/Tdap Vaccines (1 - Tdap) 11/15/1957 Adult Wellness Visit 2002 Depression Monitoring 09/29/2020 09/30/2019 Albumin/Creatinine Ratio 07/28/2023 023, 06/09/2020, 03/13/2019, Additional history exists COVID-19 Vaccine ( season) 2023 01/04/2021, 04/19/2020, 04/04/2020, Additional history exists Influenza Vaccine (FLU shot) (#1) 2023 01/10/2022, 11/18/2020, 12/06/2019, Additional history exists CKD HGB USE SMARTSET 74555 11/15/202411/15, 11/16/2023, 03/06/2023, Additional history exists CKD PHOS USE SMARTSET 00073 11/15/202410/21, 10/04/2022, 06/08/2021, Additional history exists TSH [...] as of this encounter Visit Diagnoses Diagnosis Cognitive deficits- Primary Unspecified persistent mental disorders due to conditions classified elsewhere Hypertensive heart and kidney disease with chronic diastolic congestive heart failure and stage 3b chronic kidney disease (HCC) Chronic atrial fibrillation (HCC) Atrial fibrillation Major depressive disorder with single episode, in partial remission (HCC) documented in this encounter Care Teams Pilot Can Router Relationship Specialty Start Date End Date Gilbert Calloway MD [address] [place] [address] [place] [id number] PCP - General Family Medicine 07/30/23 documented as of this encounter
--- OUTSIDE RECORDS SUMMARY | 2023-12-14 10:50 | External Medical Summary | Summary of Care ---
Author Name Unknown Organization [facility] Address [address] [place] [address] Phone [phone] Care Team Providers Care Continuous Dryout Operator Name Role Phone Gilbert Calloway MD Primary Care Provide r Reason for Visit * Reason Onset Date Comments [facility]: Maintenance 11/27/2023 Encounter Details Date Type Department Care Team (Late st Contact Info) Description 11/27/2023 9:30 AM EDT Scheduled Telephone [facility], [facility] [address] [place] [facility] [place] [address] [facility] [address] [place] [address] Allergies Active Allergy Reactions Criticality Noted Date Comments Ergotamine 03/01/2000 vomit Nitroglycerin 03/14/2007 vomitting documented as of this encounter (statuses as of 11/27/2023) Medications Medication Sig Dispensed Refills Start Date [...] as of this encounter (statuses as of 11/27/2023) Active Problems Problem Noted Date Diagnosed Date Full code status 11/15/2023 Anxiety state 2023 [...] Chronic atrial fibrillation 03/01/2021 Overview: new onset, [facility] on apixaban Last Assessment & 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[place] co ronary artery of [place] heart without angina pectoris Last Assessment & Plan: Stable no angina -continue rosuvastatin, metopropolol, Primary hypertension Gastroesophageal reflux dise ase with esophagitis without hemorrhage Last Assessment & Plan: symptoms controlled on pantoprazole Scoliosis of lumbar spine Mixed incontinence urge and stress (male)(female ) documented as of this encounter (statuses as of 11/27/2023) Resolved Problems Problem Noted Date Diagnosed Date [...] ulcer 06/30/2014 06/26/2017 Overview: hgb 7.4 admitted [facility] CKD (chronic kidney disease) stage [...] as of this encounter (statuses as of 11/27/2023) Immunizations Name Administration Dates Next Due COVID-19 [...] Miscellaneous Notes * Telephone Encounter - Marla Liang CM - 11/27/2023 9:44 AM EDT Call placed to [facility]. Patient dc back to the [facility] yesterday. CW will schedule GARCÍA visit Call placed to [facility] and spoke with nurse. Provided appt for RNWHITLEY Liang Legal Billing Coordinator [facility] [email or web address] documented in this encounter Plan of Treatment Upcoming Encounters Date Type Department Care Team (Late st Contact Info) Description 11/29/2023 2:30 PM EDT Home Visit [facility] [place], [facility] [address] [address] William Daniel RN [address] [address] 04/04/2024 2:40 PM EST Office Visit Nephrology, Caroline Sparks [address] [facility] [place] [address] Tirso Shah MD [address] [facility] [place] [address] 06/30/2024 10:00 AM EDT Office Visit Family Medicine [address] [place] [phone] Gilbert Calloway MD [address] [place] [address] [place] [address] Health Maintenance Due Date Last Done Comments DTap/Tdap Vaccines (1 - Tdap) 11/15/1957 Adult Wellness Visit 2002 Depression Monitoring 09/29/2020 09/30/2019 Albumin/Creatinine Ratio 07/28/2023 023, 06/09/2020, 03/13/2019, Additional history exists COVID-19 Vaccine ( season) 2023 01/04/2021, 04/19/2020, 04/04/2020, Additional history exists Influenza Vaccine (FLU shot) (#1) 2023 01/10/2022, 11/18/2020, 12/06/2019, Additional history exists CKD HGB USE SMARTSET 42541 11/15/202411/15, 11/16/2023, 03/06/2023, Additional history exists CKD PHOS USE SMARTSET 57437 11/15/2024 0908/2023, 10/04/2022, 06/08/2021, Additional history exists TSH 11/15/2024 11/16/2023, 0609/2022, 06/08/2021, Additional history exists Pneumococcal Vaccine: 65+ [...] filedocumented as of this encounter Care Teams Continuous Dryout Operator Relationship Specialty Start Date End Date Gilbert Calloway MD [address] [place] [address] [place] [phone] PCP - General Family Medicine 07/30/23 documented as of this encounter
--- OUTSIDE RECORDS SUMMARY | 2023-12-14 10:50 | External Medical Summary | Summary of Care ---
Author Name Unknown Organization [facility] Address [address] [place] [address] Phone [phone] Care Team Providers Care Sheet Metal Worker Helper Name Role Phone Gilbert Calloway MD Primary Care Provide r Reason for Visit * Reason Onset Date Comments Commission Sales Associate Documentation 12/03/2023 Encounter Details Date Type Department Care Team (Late st Contact Info) Description 12/03/2023 4:00 PM EDT Scheduled Telephone [facility], [facility] [address] [place] [address] [facility] [address] [place], [place] [phone] Allergies Active Allergy Reactions Criticality Noted Date Comments Ergotamine 03/01/2000 vomit Nitroglycerin 03/14/2007 vomitting documented as of this encounter (statuses as of 12/03/2023) Medications Medication Sig Dispensed Refills Start Date [...] wt gain>2 lbs). 30 Tablet 11/22/2023 Active Additional Information Patient not taking.Reported on 11/29/2023 Calcitriol 0.25 MCG Oral Capsule (Rocaltrol) One [...] as of this encounter (statuses as of 12/03/2023) Active Problems Problem Noted Date Diagnosed Date [...] discuss her pain concerns. 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 Last Assessment & Plan: Stable no angina -continue rosuvastatin, metopropolol, Primary hypertension Gastroesophageal reflux dise ase with esophagitis without hemorrhage Last Assessment & Plan: symptoms controlled on pantoprazole Scoliosis of lumbar spine Mixed incontinence urge and stress (male)(female ) documented as of this encounter (statuses as of 12/03/2023) Resolved Problems Problem Noted Date Diagnosed Date [...] as of this encounter (statuses as of 12/03/2023) Immunizations Name Administration Dates Next Due COVID-19 [...] No 03/07/2023 Does the household have a [facility] source of income? (Household - for ages [...] encounter Miscellaneous Notes * Telephone Encounter - Edna Alves LCSW - 12/03/2023 4:02 PM EDT Worker was consulted by William LUCIA CM As passed on to William LUCIA CM . Zoya has moved from the independent apartment to the personal care / assisted living side of her complex. The administration ( Mary [facility]) has concerns that Zoya does not have the funds to sustain her [facility] stay there. The conflict is that Zoya wants to return to her apartment but is not capable of living unsupervised. Chart was reviewed. Worker was able to discuss the case with Lana LUCIA CM who is well aware of Zoya's situation and that she has an atty that has been managing her affairs. Lana LUCIA CM has a scheduled visit for Sunday j 06/04/23. She will update this worker at that time. Edna Alves LCSW [employer] Manufacturing Engineer [employer] [phone] documented in this encounter Plan of Treatment Upcoming Encounters Date Type Department Care Team (Late st Contact Info) Description 12/05/2023 2:00 PM EDT [facility], [facility] [address] [facility] [place] [address] Lana Lieberman, KHARI [address] [place] [address] 04/04/2024 2:40 PM EST Office Visit Nephrology, Caroline Sparks [address] [facility] [place] [address] Tirso Shah MD [address] [facility] [place] [address] 06/30/2024 10:00 AM EDT Office Visit Family Medicine [address] [phone] Gilbert Calloway MD [address] [place] [address] [place] [phone] Health Maintenance Due Date Last Done Comments DTap/Tdap Vaccines (1 - Tdap) 11/15/1957 Adult Wellness Visit 2002 Depression Monitoring 09/29/2020 09/30/2019 Albumin/Creatinine Ratio 07/28/2023 023, 06/09/2020, 03/13/2019, Additional history exists COVID-19 Vaccine ( season) 2023 01/04/2021, 04/19/2020, 04/04/2020, Additional history exists Influenza Vaccine (FLU shot) (#1) 2023 01/10/2022, 11/18/2020, 12/06/2019, Additional history exists CKD HGB USE SMARTSET 07457 11/15/202411/15, 11/16/2023, 03/06/2023, Additional history exists CKD PHOS USE SMARTSET 83760 11/15/2024 09/2 08/2023, 10/04/2022, 06/08/2021, Additional history exists TSH 11/15/2024 11/16/2023, 06/09/2022, 06/08/2021, Additional history exists Pneumococcal Vaccine: 65+ [...] filedocumented as of this encounter Care Teams Sheet Metal Worker Helper Relationship Specialty Start Date End Date Gilbert Calloway MD [address] [place] [address] [place] [phone] PCP - General Family Medicine 07/30/23 documented as of this encounter
--- OUTSIDE RECORDS SUMMARY | 2023-12-14 10:50 | External Medical Summary | Summary of Care ---
Author Name Unknown Organization [facility] Address [address] [place] [address] Phone [phone] Care Team Providers Care Device Processing Engineer Name Role Phone Gilbert Calloway MD Primary Care Provide r Reason for Visit * Reason Onset Date Comments [facility]: Maintenance 11/27/2023 Encounter Details Date Type Department Care Team (Late st Contact Info) Description 11/27/2023 9:30 AM EDT Scheduled Telephone [facility], [facility] [address] [place] [facility] [place] [place] [address] [facility] [address] [place] [address] Allergies Active Allergy Reactions Criticality Noted Date [...] discuss her pain concerns. She is aware [facility] does not manage chronic pain meds. With her history of confusion, would recommend against use of narcotic medication. 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 Patient dc back to the [facility] yesterday. will schedule GARCÍA visit Marla Liang Grocery Team Member [facility] [email or web address] documented in this encounter Plan of Treatment Upcoming Encounters Date Type Department Care Team (Late st Contact Info) Description 11/29/2023 2:30 PM EDT Home Visit [facility] [place], [facility] [address] [address] William Daniel, KHARI [address] [place] [address] 04/04/2024 2:40 PM EST Office Visit Nephrology, Caroline Sparks [address] [facility] [place] [address] Tirso Shah MD [address] [facility] [place] [address] 06/30/2024 10:00 AM EDT Office Visit Family Medicine [address] [phone] Gilbert Calloway MD [address] [place] [address] [place] [address] Health Maintenance Due Date Last Done Comments DTap/Tdap Vaccines (1 - Tdap) 11/15/1957 Adult Wellness Visit 2002 Depression Monitoring 09/29/2020 09/30/2019 Albumin/Creatinine Ratio 07/28/2023 023, 06/09/2020, 03/13/2019, Additional history exists COVID-19 Vaccine ( season) 2023 01/04/2021, 04/19/2020, 04/04/2020, Additional history exists Influenza Vaccine (FLU shot) (#1) 2023 01/10/2022, 11/18/2020, 12/06/2019, Additional history exists CKD HGB USE SMARTSET 00693 11/15/202411/15, 11/16/2023, 03/06/2023, Additional history exists CKD PHOS USE SMARTSET 86462 11/15/2024 0908/2023, 10/04/2022, 06/08/2021, Additional history exists [...] filedocumented as of this encounter Care Teams Device Processing Engineer Relationship Specialty Start Date End Date Gilbert Calloway MD [address] [place] [address] [place] [phone] PCP - General Family Medicine 07/30/23 documented as of this encounter
--- OUTSIDE RECORDS SUMMARY | 2023-12-14 10:50 | External Medical Summary | Continuity Of Care Document ---
Author Name Unknown Address [address] [place] [address] Organization [facility] ( ) Care Team Providers Care Supervisor Shipping Name Role Phone Delmer Valles Primary Care Provider [phone] VITAL SIGNS Date Time Diastolic blood pressure Systolic blood pressure Body height Body weight Temperature SpO2 Blood Sugar Pulse Respirations 15143 925 13869 7 59 [place] [address]90 925 74071 2 154.00 NI 76523 925 50530 5 101.00 mm[Hg] - Sitting 159.00 mm[Hg] - Sitting 96.90 Oral 78.00/ min 18.00/min 48902 925 51852 4 101.00 mm[Hg] - Sitting 159.00 mm[Hg] - Sitting 59 NI 154.00 NI 96.90 Ear 97.00 % 75.00/ min 18.00/min 14468 925 62202 3 75.00/ min 18.00/min 54613 925 83912 3 75.00/ min 99453 926 30247 9 20486 926 69570 5 71038 926 20706 9 36539 926 30055 9 155.80 NI 43181 926 08844 3 101.00 mm[Hg] - Sitting 159.00 mm[Hg] - Sitting 96.90 Ear 75.00/ min 18.00/min 81005 926 50474 8 63.00 mm[Hg] - Sitting 118.00 mm[Hg] - Sitting 98.40 Ear 96.00 % 75.00/ min 20.00/min 96570 927 39277 0 73.00 mm[Hg] - Sitting 109.00 mm[Hg] - Sitting 98.40 Ear 93.00 % 74.00/ min 18.00/min 37397 927 13984 2 156.00 NI 29684 927 78980 7 50319 927 19413 6 98.10 Oral 43305 928 16170 5 96846 928 44375 7 67540 928 44183 1 46818 928 40069 7 68.00 mm[Hg] - Sitting 118.00 mm[Hg] - Sitting 98.20 Oral 95.00 % 72.00/ min 18.00/min 75710 929 27730 0 66.00 mm[Hg] - Sitting 113.00 mm[Hg] - Sitting 98.70 Oral 94.00 % 72.00/ min 18.00/min 61275 930 82715 4 90.00 mm[Hg] - Sitting 170.00 mm[Hg] - Sitting 97.20 Ear 94.00 % 84.00/ min 22.00/min 27906 001 01326 3 95.00 mm[Hg] - Sitting 152.00 mm[Hg] - Sitting 98.00 Oral 94.00 % 92.00/ min 20.00/min 51880 001 96730 1 95.00 mm[Hg] - Sitting 152.00 mm[Hg] - Sitting 156.00 NI 98.00 Ear 92.00/ min 21762 002 59022 3 73.00 mm[Hg] - Sitting 121.00 mm[Hg] - Sitting 98.40 Oral 93.00 % 98.00/ min 16.00/min 88587 002 55299 3 15616 003 37398 1 89.00 mm[Hg] - Sitting 160.00 mm[Hg] - Sitting 97.60 Oral 98.00 % 87.00/ min 16.00/min 05610 003 19002 8 157.00 [place] [address] 005 48799 6 159.00 NI 11790 006 76158 7 71.00 mm[Hg] - Sitting 113.00 mm[Hg] - Sitting 97.60 Ear 96.00 % 81.00/ min 20.00/min Immunizations Vaccine Date Status COVID-19 03/14/2020 Completed COVID-19 04/04/2020 Completed Influenza 12/06/2019 Completed Influenza 11/01/2020 Admitted After F van Season (PCV13)Pneumococcal 08/26/2014 Completed (PPSV23)Pneumococcal 10/26/2005 Completed Shingles 12/04/2019 Completed
--- OUTSIDE RECORDS SUMMARY | 2023-12-14 10:50 | External Medical Summary | Summary of Care ---
Author Name Unknown Organization [facility] Address [address] [place] [address] Phone [phone] Care Team Providers Care Hog Dropper Name Role Phone Gilbert Calloway MD Primary Care Provide r Reason for Visit * Reason Onset Date Comments Follow Up 12/05/2023 Encounter Details Date Type Department Care Team (Late st Contact Info) Description 12/05/2023 Telephone [facility], [facility] [address] [place] [address] Lana Lieberman RN [address] [place] [address] Follow Up Allergies Active Allergy Reactions Criticality Noted Date Comments Ergotamine 03/01/2000 vomit Nitroglycerin 03/14/2007 vomitting documented as of this encounter (statuses as of 12/05/2023) Medications Medication Sig Dispensed Refills Start Date [...] as of this encounter (statuses as of 12/05/2023) Active Problems Problem Noted Date Diagnosed Date [...] Chronic atrial fibrillation 03/01/2021 Overview: new onset, [facility] on apixaban Last Assessment 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[place] co ronary artery of [place] heart without angina pectoris Last Assessment & Plan: Stable no angina -continue rosuvastatin, metopropolol, Primary hypertension Gastroesophageal reflux dise ase with esophagitis without hemorrhage Last Assessment & Plan: symptoms controlled on pantoprazole Scoliosis of lumbar spine Mixed incontinence urge and stress (male)(female ) documented as of this encounter (statuses as of 12/05/2023) Resolved Problems Problem Noted Date Diagnosed Date [...] ulcer 06/30/2014 06/26/2017 Overview: hgb 7.4 admitted [facility] CKD (chronic kidney disease) [...] as of this encounter (statuses as of 12/05/2023) Immunizations Name Administration Dates Next Due COVID-19 [...] No 03/07/2023 Does the household have a [facility] source of income? (Household - for [...] Telephone Encounter - Lana Lieberman RN - 12/05/2023 8:58 AM EDT Please discharge the patient from [facility] Device(s)/IVR to be discontinued: [facility] SCALE due to patient is now in Personal custodial and has not been weighing regularly. Thank you. documented in this encounter Plan of Treatment Upcoming Encounters Date Type Department Care Team (Late st Contact Info) Description 12/05/2023 2:00 PM EDT Home Visit [facility] [address] [address] Lana Lieberman RN [address] [place] [address] 04/04/2024 2:40 PM EST Office Visit Nephrology, Caroline Sparks 200 [facility] [place] [address] Tirso Shah MD 200 [facility] [place] [address] 06/30/2024 10:00 AM EDT Office Visit Family Medicine [address] [place] [phone] Gilbert Calloway MD [address] [place] [address] [place] [address] Health Maintenance Due Date Last Done Comments DTap/Tdap Vaccines (1 - Tdap) 11/15/1957 Adult Wellness Visit 2002 Depression Monitoring 09/29/2020 09/30/2019 Albumin/Creatinine Ratio 07/28/2023 023, 06/09/2020, 03/13/2019, Additional history exists COVID-19 Vaccine ( season) 2023 01/04/2021, 04/19/2020, 04/04/2020, Additional history exists Influenza Vaccine (FLU shot) (#1) 2023 01/10/2022, 11/18/2020, 12/06/2019, Additional history exists CKD HGB USE SMARTSET 47194 11/15/202411/15, 11/16/2023, 03/06/2023, Additional history exists CKD PHOS USE SMARTSET 12566 11/15/202410/21, 10/04/2022, 06/08/2021, Additional history exists TSH [...] filedocumented as of this encounter Care Teams Hog Dropper Relationship Specialty Start Date End Date Gilbert Calloway MD [address] [place] [address] [place] [phone] PCP - General Family Medicine 07/30/23 documented as of this encounter
--- OUTSIDE RECORDS SUMMARY | 2023-12-14 10:50 | External Medical Summary | Summary of Care ---
Author Name Unknown Organization [facility] Address [address] [place] [address] Phone [phone] Care Team Providers Care Virtual Classroom Manager Name Role Phone Gilbert Calloway MD Primary Care Provide r Encounter Details Date Type Department Care Team (Late st Contact Info) Description 11/29/2023 2:30 PM EDT [facility] Visit [facility] [address] [place] [address] William Daniel, RN [address] [place] [address] Allergies Active Allergy Reactions Criticality Noted Date Comments Ergotamine 03/01/2000 vomit Nitroglycerin 03/14/2007 vomitting documented as of this encounter (statuses as of 11/29/2023) Medications Medication Sig Dispensed Refills Start Date [...] as of this encounter (statuses as of 11/29/2023) Active Problems Problem Noted Date Diagnosed Date [...] discuss her pain concerns. 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 Last Assessment & Plan: Stable no angina -continue rosuvastatin, metopropolol, Primary hypertension Gastroesophageal reflux dise ase with esophagitis without hemorrhage Last Assessment & Plan: symptoms controlled on pantoprazole Scoliosis of lumbar spine Mixed incontinence urge and stress (male)(female ) documented as of this encounter (statuses as of 11/29/2023) Resolved Problems Problem Noted Date Diagnosed Date [...] as of this encounter (statuses as of 11/29/2023) Immunizations Name Administration Dates Next Due COVID-19 [...] Sign Reading Time Taken Comments Blood Pressure 130/78 11/29/2023 2:57 PM EDT Pulse 80 11/29/2023 2:57 PM EDT Temperature 36.8 C (98.2 F) 11/29/2023 2:57 PM ED T Respiratory Rate 20 11/29/2023 2:57 PM EDT Oxygen Saturation 96% 11/29/2023 2:57 PM EDT Inhaled Oxygen Concentration - - Weight - - Height - - Body Mass Index - - documented in this encounter Progress Notes * William Daniel RN - 11/29/2023 2:47 PM EDT Current Concerns: Situation: Pt seen today by [facility] camp manager for GARCÍA visit. Background: PMH includes: Anxiety, Afib, CHF, HTN, CKD Assessment: Pt was admitted at [facility] for UTI, Pneumonia Per correctional facility nurseMary Alice, while at [facility] pt was demonstrating signs of significant cognitive deficits and pt apartment was found to be in disarray and deemed unsafe and unlivable Mary Alice reports pt apartment was severely cluttered, full of rotting and foods, pt bed was filled with moldy food products Mary Alice reports oxycodone, trazodone, buspar, gabapentin, ativan, melatonin were all sitting on stand beside pt bed and it was believed that pt was taking all of the medications at once together as afriend/CG stated pt would be unreachable for hours to days at a time Per [facility], since being at personal usp pt has asked multiple people for Oxycodone but denies pain at the time the requests are made by pt Mary Alice reports that pt is currently "respite" and would be LTC at the personal usp, however pt does not have necessary funds Per [facility] pt is also not skillable at this time [facility] states pt has an employee benefits attorney who has been contacted and in contact with pt brother and nephew regarding the circumstances Per [facility], Adult Protective Services report was not filed as apartment condition and medications at bedside were not discovered until pt was at [facility] Mary Alice reports pt has been paranoid about others perspectives of her and making statements such as"No one here respects me"- when asked why pt stated that she was not respected or liked because shehad her hair and nails done at the salon at the home so others think she is too "prissy" for them This RN will make referral to regarding above for recommendations on how [facility] can assist in this scenario When this RN approached pt in room, pt sitting on bed, speaking very fast, frustrated, asking this RN how to "get out of here" Pt states that she has no idea why she is in home and that no one will tell her Discussed with pt that she is at [facility] for her safety and that there is concern she may be havingissues with cognition- pt denies that she has any issues with memory Pt reports since being discharged she has not seen therapy or a doctor one time It is noted by [facility] staff that pt has been making such states since discharge from [facility], howeverhas been seen by providers on multiple occasions, and is also admitted to [facility] for PT, OT and SN services Pt was seen by Vero Ken PA-C on 11/27, per note unsafe for pt to go back to apartment and having definite cognitive deficits Pt does not appear anxious during visit Pt denies pain at time of visit Pt denies SOB, BROUSSARD, cough, CP, COLBERT, increased fatigue Pt states anger for being "held" at home, repetitively asking if this RN is going to let pt go back to apartment or "help me get out of here" Pt room at [facility] is neat with clear walkways, pt does appear to have a few belongings scattered about the room Physical Exam: Physical Exam Cardiovascular: Rate and Rhythm: Normal rate and regular rhythm. Pulmonary: Effort: Pulmonary effort is normal. Breath sounds: Normal breath sounds. Abdominal: General: Bowel sounds are normal. Palpations: Abdomen is soft. Musculoskeletal: General: Normal range of motion. Skin: General: Skin is warm and dry. Capillary Refill: Capillary refill takes 2 to 3 seconds. Neurological: General: No focal deficit present. Mental Status: She is alert. Psychiatric: Behavior: Behavior is hyperactive. Thought Content: Thought content is paranoid. Cognition and Memory: Cognition is impaired. Memory is impaired. Review of Systems: Review of Systems Constitutional: Negative. HENT: Negative. Respiratory: Negative. Negative for cough, chest tightness and shortness of breath. Cardiovascular: Negative. Negative for leg swelling. Gastrointestinal: Negative. Genitourinary: Negative. Musculoskeletal: Positive for gait problem. Skin: Negative. Neurological: Negative for dizziness, syncope and light-headedness. Psychiatric/Behavioral: Positive for confusion. Care Plan Goal Progress: Patient will maintain optimal activity level. (Not Progressing) Start: 11/29/23 Expected End: 01/18/24 Patient will state need to remain in control of life. (Not Progressing) Start: 11/29/23 Expected End: 01/18/24 Patient's daily care needs are met. (Not Progressing) Start: 11/29/23 Expected End: 01/18/24 Orders Placed: No orders of the defined types were placed in this encounter. Care Gaps: Care Gaps Care gaps closed this contact:: Education (11/29/231835) Type of education: Clinical/disease (11/29/231835) documented in this encounter Plan of Treatment Upcoming Encounters Date Type Department Care Team (Late st Contact Info) Description 04/04/2024 2:40 PM EST Office Visit Nephrology, Caroline Sparks [address] [facility] [place] [address] Tirso Sahh MD [address] [facility] [place] [address] 06/30/2024 10:00 AM EDT Office Visit Family Medicine [address] [place] [phone] Gilbert Calloway MD [address] [place] [address] [place] [address] Health Maintenance Due Date Last Done Comments DTap/Tdap Vaccines (1 - Tdap) 11/15/1957 Adult Wellness Visit 2002 Depression Monitoring 09/29/2020 09/30/2019 Albumin/Creatinine Ratio 07/28/2023 023, 06/09/2020, 03/13/2019, Additional history exists COVID-19 Vaccine ( season) 2023 01/04/2021, 04/19/2020, 04/04/2020, Additional history exists Influenza Vaccine (FLU shot) (#1) 2023 01/10/2022, 11/18/2020, 12/06/2019, Additional history exists CKD HGB USE SMARTSET 14360 11/15/202411/15, 11/16/2023, 03/06/2023, Additional history exists CKD PHOS USE SMARTSET 93105 11/15/2024 0908/2023, 10/04/2022, 06/08/2021, Additional history exists [...] filedocumented as of this encounter Care Teams Virtual Classroom Manager Relationship Specialty Start Date End Date Gilbert Calloway MD [address] [place] [address] [place] [phone] PCP - General Family Medicine 07/30/23 documented as of this encounter
--- OUTSIDE RECORDS SUMMARY | 2023-12-14 10:50 | External Medical Summary | Summary of Care ---
Author Name Unknown Organization [facility] Address [address] [place] [address] Phone [phone] Care Team Providers Care Director Of Strategic Partnerships Name Role Phone Gilbert Calloway MD Primary Care Provide r Reason for Visit * Reason Onset Date Comments [facility]: Maintenance 11/27/2023 Encounter Details Date Type Department Care Team (Late st Contact Info) Description 11/27/2023 9:30 AM EDT Scheduled Telephone [facility], [facility] [address] [facility] [place] [address] [facility] [address] [place] [address] Allergies Active Allergy Reactions Criticality Noted Date 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[place] co ronary artery of [place] heart without angina pectoris Last Assessment & [...] [facility] [place]. Patient dc back to the [facility] yesterday. will schedule GARCÍA visit Marla Liang State'S Attorney [facility] [email or web address] documented in this encounter Plan of Treatment Upcoming Encounters Date Type Department Care Team (Late st Contact Info) Description 04/04/2024 2:40 PM EST Office Visit Caroline Hood [address] [place] [address] Tirso Shah MD [address] [place] [address] 06/30/2024 10:00 AM EDT Office Visit Family Medicine [address] [place] [phone] Gilbert Calloway MD [address] [place] [address] [place] [address] Health Maintenance Due Date Last Done Comments DTap/Tdap Vaccines (1 - Tdap) 11/15/1957 Adult Wellness Visit 2002 Depression Monitoring 09/29/2020 09/30/2019 Albumin/Creatinine Ratio 07/28/2023 023, 06/09/2020, 03/13/2019, Additional history exists COVID-19 Vaccine ( season) 2023 01/04/2021, 04/19/2020, 04/04/2020, Additional history exists Influenza Vaccine (FLU shot) (#1) 2023 01/10/2022, 11/18/2020, 12/06/2019, Additional history exists CKD HGB USE SMARTSET 80831 11/15/202411/15, 11/16/2023, 03/06/2023, Additional history exists CKD PHOS USE SMARTSET 50859 11/15/20242 08/2023, 10/04/2022, 06/08/2021, Additional history exists TSH [...] of this encounter Care Teams Director Of Strategic Partnerships Relationship Specialty Start Date End Date Gilbert Calloway MD [address] [place] [address] [place] [phone] PCP - General Family Medicine 07/30/23 documented as of this encounter
--- OUTSIDE RECORDS SUMMARY | 2023-12-14 10:50 | External Medical Summary | Summary of Care ---
Author Name Unknown Organization [facility] Address [address] [place] [address] Phone [phone] Care Team Providers Care Name Role Phone Gilbert Calloway MD Primary Care Provide r Encounter Details Date Type Department Care Team (Late st Contact Info) Description 11/29/2023 2:30 PM EDT Home Visit [facility], [facility] [address] [place] [address] William Daniel, RN [address] [place] [address] Allergies Active Allergy Reactions Criticality Noted Date Comments Ergotamine 03/01/2000 vomit Nitroglycerin 03/14/2007 vomitting documented as of this encounter (statuses as of 11/30/2023) Medications Medication Sig Dispensed Refills Start Date [...] as of this encounter (statuses as of 11/30/2023) Active Problems Problem Noted Date Diagnosed Date 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 Last Assessment & Plan: Stable no angina -continue rosuvastatin, metopropolol, Primary hypertension Gastroesophageal reflux dise ase with esophagitis without hemorrhage Last Assessment & Plan: symptoms controlled on pantoprazole Scoliosis of lumbar spine Mixed incontinence urge and stress (male)(female ) documented as of this encounter (statuses as of 11/30/2023) Resolved Problems Problem Noted Date Diagnosed Date [...] as of this encounter (statuses as of 11/30/2023) Immunizations Name Administration Dates Next Due COVID-19 [...] Pt seen today by [facility] accelerator operator for GARCÍA visit. Background: PMH includes: Anxiety, Afib, CHF, HTN, CKD Assessment: Pt was admitted at [facility] for UTI, Pneumonia Per unix system administratorMary Alice, while at [facility] pt was demonstrating signs of [...] hours to days at a time Per [facility], since being at personal intermediate pt has asked multiple people for Oxycodone but denies pain at the time the requests are made by pt Mary Alice reports that pt is currently "respite" and would be LTC at the personal intermediate, however pt does not have necessary funds Per [facility] pt is also not skillable at this time [facility] states pt has an compliance attorney who has been contacted and in contact with pt brother and nephew regarding the circumstances Per [facility], Adult Protective Services report was not filed as apartment condition and medications at bedside were not discovered until pt was at [facility] Mary Alice reports pt has [...] to regarding above for recommendations on how [facility] can assist in this scenario When this RN approached pt in room, pt sitting on bed, speaking very fast, frustrated, asking this RN how to "get out of here" Pt states that she has no idea why she is in home and that no one will tell her Discussed with pt that she is at [facility] for her safety and that there is concern she may be havingissues with cognition- pt denies that she has any issues with memory Pt reports since being discharged she has not seen therapy or a doctor one time It is noted by [facility] staff that pt has been making such states since discharge from [facility], howeverhas been seen by providers on multiple occasions, and is also admitted to [facility] for PT, OT and SN services Pt [...] get out of here" Pt room at [facility] is neat with clear walkways, pt does [...] Description 12/05/2023 2:00 PM EDT [facility] Visit [facility], [facility] [address] [place] [address] Lana Lieberman, RN [address] [place] [address] 04/04/2024 2:40 PM EST Office Visit Nephrology, [facility] [address] [facility] [place] [address] Tirso Shah MD [address] [facility] [place] [address] 06/30/2024 10:00 AM EDT Office Visit Family Medicine [address] [phone] Gilbert Calloway MD [address] [place] [address] [place] [address] Health Maintenance Due Date Last Done Comments DTap/Tdap Vaccines (1 - Tdap) 11/15/1957 Adult Wellness Visit 2002 Depression Monitoring 09/29/2020 09/30/2019 Albumin/Creatinine Ratio 07/28/2023 023, 06/09/2020, 03/13/2019, Additional history exists COVID-19 Vaccine ( season) 2023 01/04/2021, 04/19/2020, 04/04/2020, Additional history exists Influenza Vaccine (FLU shot) (#1) 2023 01/10/2022, 11/18/2020, 12/06/2019, Additional history exists CKD HGB USE SMARTSET 70175 11/15/202411/15, 11/16/2023, 03/06/2023, Additional history exists CKD PHOS USE SMARTSET 94329 11/15/202410/21, 10/04/2022, 06/08/2021, Additional history exists TSH 11/15/2024 11/16/2023, 09/2022, 06/08/2021, Additional history exists Pneumococcal Vaccine: [...] filedocumented as of this encounter Care Teams Relationship Specialty Start Date End Date Gilbert Calloway MD [address] [place] [address] [place] [phone] PCP - General Family Medicine 07/30/23 documented as of this encounter
--- OUTSIDE RECORDS SUMMARY | 2023-12-14 10:51 | External Medical Summary | Continuity Of Care Document ---
Author Name Unknown Address [address] [address] Organization [facility] ( ) Care Team Providers Care Entry Level Drafter Name Role Phone Delmer Valles Primary Care Provider [phone] VITAL SIGNS Date Time Diastolic blood pressure Systolic blood pressure Body height Body weight Temperature SpO2 Blood Sugar Pulse Respirations 82419 925 94191 7 59 NI [address]51 925 37229 2 154.00 NI 04534 925 07624 5 101.00 mm[Hg] - Sitting 159.00 mm[Hg] - Sitting 96.90 Oral 78.00/ min 18.00/min 97738 925 04132 4 101.00 mm[Hg] - Sitting 159.00 mm[Hg] - Sitting 59 NI 154.00 NI 96.90 Ear 97.00 % 75.00/ min 18.00/min 91768 925 72363 3 75.00/ min 18.00/min 71965 925 51187 3 75.00/ min 88356 926 37905 9 98177 926 34891 5 41580 926 15064 9 62590 926 94755 9 155.80 [place] [address] 926 63706 3 101.00 mm[Hg] - Sitting 159.00 mm[Hg] - Sitting 96.90 Ear 75.00/ min 18.00/min 54818 926 26434 8 63.00 mm[Hg] - Sitting 118.00 mm[Hg] - Sitting 98.40 Ear 96.00 % 75.00/ min 20.00/min 29243 927 51910 0 73.00 mm[Hg] - Sitting 109.00 mm[Hg] - Sitting 98.40 Ear 93.00 % 74.00/ min 18.00/min 53082 927 99672 2 156.00 NI [address]91 927 69834 7 70510 927 10810 6 98.10 Oral 45666 928 03220 5 66916 928 52873 7 17694 928 05608 1 44985 928 83889 7 68.00 mm[Hg] - Sitting 118.00 mm[Hg] - Sitting 98.20 Oral 95.00 % 72.00/ min 18.00/min 80313 929 21061 0 66.00 mm[Hg] - Sitting 113.00 mm[Hg] - Sitting 98.70 Oral 94.00 % 72.00/ min 18.00/min 17140 930 33759 4 90.00 mm[Hg] - Sitting 170.00 mm[Hg] - Sitting 97.20 Ear 94.00 % 84.00/ min 22.00/min 73663 001 77235 3 95.00 mm[Hg] - Sitting 152.00 mm[Hg] - Sitting 98.00 Oral 94.00 % 92.00/ min 20.00/min 14736 001 12514 1 95.00 mm[Hg] - Sitting 152.00 mm[Hg] - Sitting 156.00 NI 98.00 Ear 92.00/ min 15565 002 83278 3 73.00 mm[Hg] - Sitting 121.00 mm[Hg] - Sitting 98.40 Oral 93.00 % 98.00/ min 16.00/min 84898 002 68986 3 81863 003 99746 1 89.00 mm[Hg] - Sitting 160.00 mm[Hg] - Sitting 97.60 Oral 98.00 % 87.00/ min 16.00/min 53398 003 03380 8 157.00 NI 76613 005 18698 6 159.00 NI 70498 006 91784 7 71.00 mm[Hg] - Sitting 113.00 mm[Hg] - Sitting 97.60 Ear 96.00 % 81.00/ min 20.00/min Immunizations Vaccine Date Status COVID-19 03/14/2020 Completed COVID-19 04/04/2020 Completed Influenza 12/06/2019 Completed Influenza 11/01/2020 Admitted After F van Season (PCV13)Pneumococcal 08/26/2014 Completed (PPSV23)Pneumococcal 10/26/2005 Completed Shingles 12/04/2019 Completed
--- OUTSIDE RECORDS SUMMARY | 2023-12-14 10:51 | External Medical Summary | Continuity Of Care Document ---
Author Name Unknown Address [address] [place] [address] Organization [facility] ( ) Care Team Providers Care Tower Equipment Installer Name Role Phone Delmer Valles Primary Care Provider [phone] VITAL SIGNS Date Time Diastolic blood pressure Systolic blood pressure Body height Body weight Temperature SpO2 Blood Sugar Pulse Respirations 84044 925 42567 7 59 NI 29963 925 69135 2 154.00 NI 05461 925 58149 5 101.00 mm[Hg] - Sitting 159.00 mm[Hg] - Sitting 96.90 Oral 78.00/ min 18.00/min 59709 925 57633 4 101.00 mm[Hg] - Sitting 159.00 mm[Hg] - Sitting 59 NI 154.00 NI 96.90 Ear 97.00 % 75.00/ min 18.00/min 56383 925 77210 3 75.00/ min 18.00/min 96163 925 93947 3 75.00/ min 40012 926 75029 9 23180 926 08654 5 94856 926 35078 9 01984 926 85910 9 155.80 [place] [address]282 926 94604 3 101.00 mm[Hg] - Sitting 159.00 mm[Hg] - Sitting 96.90 Ear 75.00/ min 18.00/min 91764 926 23339 8 63.00 mm[Hg] - Sitting 118.00 mm[Hg] - Sitting 98.40 Ear 96.00 % 75.00/ min 20.00/min 75253 927 61255 0 73.00 mm[Hg] - Sitting 109.00 mm[Hg] - Sitting 98.40 Ear 93.00 % 74.00/ min 18.00/min 02059 927 52614 2 156.00 NI 73699 927 64381 7 10699 927 20885 6 98.10 Oral 73236 928 03076 5 99253 928 69929 7 94282 928 98002 1 08181 928 30180 7 68.00 mm[Hg] - Sitting 118.00 mm[Hg] - Sitting 98.20 Oral 95.00 % 72.00/ min 18.00/min 52336 929 02495 0 66.00 mm[Hg] - Sitting 113.00 mm[Hg] - Sitting 98.70 Oral 94.00 % 72.00/ min 18.00/min 32804 930 19403 4 90.00 mm[Hg] - Sitting 170.00 mm[Hg] - Sitting 97.20 Ear 94.00 % 84.00/ min 22.00/min 81397 001 25192 3 95.00 mm[Hg] - Sitting 152.00 mm[Hg] - Sitting 98.00 Oral 94.00 % 92.00/ min 20.00/min 37524 001 88315 1 95.00 mm[Hg] - Sitting 152.00 mm[Hg] - Sitting 156.00 NI 98.00 Ear 92.00/ min 01956 002 76115 3 73.00 mm[Hg] - Sitting 121.00 mm[Hg] - Sitting 98.40 Oral 93.00 % 98.00/ min 16.00/min 45521 002 23295 3 91464 003 93451 1 89.00 mm[Hg] - Sitting 160.00 mm[Hg] - Sitting 97.60 Oral 98.00 % 87.00/ min 16.00/min 11346 003 59726 8 157.00 [place] [address] 005 02628 6 159.00 NI 41958 006 63787 7 71.00 mm[Hg] - Sitting 113.00 mm[Hg] - Sitting 97.60 Ear 96.00 % 81.00/ min 20.00/min Immunizations Vaccine Date Status COVID-19 03/14/2020 Completed COVID-19 04/04/2020 Completed Influenza 12/06/2019 Completed Influenza 11/01/2020 Admitted After F van Season (PCV13)Pneumococcal 08/26/2014 Completed (PPSV23)Pneumococcal 10/26/2005 Completed Shingles 12/04/2019 Completed
--- OUTSIDE RECORDS SUMMARY | 2023-12-14 10:51 | External Medical Summary | Continuity Of Care Document ---
Author Name Unknown Address [address] [place] [address] Organization [facility] ( ) Care Team Providers Care Enterprise Application Analyst Name Role Phone Delmer Valles Primary Care Provider +[phone] VITAL SIGNS Date Time Diastolic blood pressure Systolic blood pressure Body height Body weight Temperature SpO2 Blood Sugar Pulse Respirations 09422 925 78794 7 59 NI 51768 925 96101 2 154.00 NI 11170 925 08239 5 101.00 mm[Hg] - Sitting 159.00 mm[Hg] - Sitting 96.90 Oral 78.00/ min 18.00/min 98021 925 64517 4 101.00 mm[Hg] - Sitting 159.00 mm[Hg] - Sitting 59 NI 154.00 NI 96.90 Ear 97.00 % 75.00/ min 18.00/min 88291 925 27251 3 75.00/ min 18.00/min 95590 925 67532 3 75.00/ min 96642 926 99228 9 82186 926 87048 5 13131 926 93951 9 16224 926 70345 9 155.80 NI [address] 926 57276 3 101.00 mm[Hg] - Sitting 159.00 mm[Hg] - Sitting 96.90 Ear 75.00/ min 18.00/min 94273 926 64146 8 63.00 mm[Hg] - Sitting 118.00 mm[Hg] - Sitting 98.40 Ear 96.00 % 75.00/ min 20.00/min 36186 927 16035 0 73.00 mm[Hg] - Sitting 109.00 mm[Hg] - Sitting 98.40 Ear 93.00 % 74.00/ min 18.00/min 17378 927 65027 2 156.00 NI 72668 927 77224 7 50055 927 48804 6 98.10 Oral 77898 928 11687 5 24784 928 82149 7 19964 928 09878 1 73401 928 93901 7 68.00 mm[Hg] - Sitting 118.00 mm[Hg] - Sitting 98.20 Oral 95.00 % 72.00/ min 18.00/min 14757 929 07004 0 66.00 mm[Hg] - Sitting 113.00 mm[Hg] - Sitting 98.70 Oral 94.00 % 72.00/ min 18.00/min 92961 930 08030 4 90.00 mm[Hg] - Sitting 170.00 mm[Hg] - Sitting 97.20 Ear 94.00 % 84.00/ min 22.00/min 78872 001 12223 3 95.00 mm[Hg] - Sitting 152.00 mm[Hg] - Sitting 98.00 Oral 94.00 % 92.00/ min 20.00/min 55903 001 48958 1 95.00 mm[Hg] - Sitting 152.00 mm[Hg] - Sitting 156.00 NI 98.00 Ear 92.00/ min 60320 002 67352 3 73.00 mm[Hg] - Sitting 121.00 mm[Hg] - Sitting 98.40 Oral 93.00 % 98.00/ min 16.00/min 05003 002 28163 3 16561 003 60516 1 89.00 mm[Hg] - Sitting 160.00 mm[Hg] - Sitting 97.60 Oral 98.00 % 87.00/ min 16.00/min 23164 003 24066 8 157.00 NI 73828 005 74183 6 159.00 NI 09159 006 15690 7 71.00 mm[Hg] - Sitting 113.00 mm[Hg] - Sitting 97.60 Ear 96.00 % 81.00/ min 20.00/min Immunizations Vaccine Date Status COVID-19 03/14/2020 Completed COVID-19 04/04/2020 Completed Influenza 12/06/2019 Completed Influenza 11/01/2020 Admitted After F van Season (PCV13)Pneumococcal 08/26/2014 Completed (PPSV23)Pneumococcal 10/26/2005 Completed Shingles 12/04/2019 Completed
--- OUTSIDE RECORDS SUMMARY | 2023-12-14 10:51 | External Medical Summary | Continuity Of Care Document ---
Author Name Unknown Address [address] [place] [address] Organization [facility] ( ) Care Team Providers Care Food And Beverage Server Name Role Phone Delmer Valles Primary Care Provider [phone] VITAL SIGNS Date Time Diastolic blood pressure Systolic blood pressure Body height Body weight Temperature SpO2 Blood Sugar Pulse Respirations 92322 925 70349 7 59 [place] [address]107 925 31677 2 154.00 NI 25693 925 54595 5 101.00 mm[Hg] - Sitting 159.00 mm[Hg] - Sitting 96.90 Oral 78.00/ min 18.00/min 59619 925 01466 4 101.00 mm[Hg] - Sitting 159.00 mm[Hg] - Sitting 59 NI 154.00 NI 96.90 Ear 97.00 % 75.00/ min 18.00/min 71305 925 45904 3 75.00/ min 18.00/min 12028 925 17687 3 75.00/ min 18056 926 91771 9 77360 926 87072 5 33424 926 11900 9 14205 926 19266 9 155.80 NI 85587 926 76175 3 101.00 mm[Hg] - Sitting 159.00 mm[Hg] - Sitting 96.90 Ear 75.00/ min 18.00/min 99645 926 09750 8 63.00 mm[Hg] - Sitting 118.00 mm[Hg] - Sitting 98.40 Ear 96.00 % 75.00/ min 20.00/min 71319 927 28606 0 73.00 mm[Hg] - Sitting 109.00 mm[Hg] - Sitting 98.40 Ear 93.00 % 74.00/ min 18.00/min 12197 927 14200 2 156.00 NI 82689 927 57104 7 31635 927 05397 6 98.10 Oral 63875 928 43628 5 61602 928 17013 7 96490 928 90267 1 17343 928 32966 7 68.00 mm[Hg] - Sitting 118.00 mm[Hg] - Sitting 98.20 Oral 95.00 % 72.00/ min 18.00/min 22988 929 96052 0 66.00 mm[Hg] - Sitting 113.00 mm[Hg] - Sitting 98.70 Oral 94.00 % 72.00/ min 18.00/min 48080 930 51184 4 90.00 mm[Hg] - Sitting 170.00 mm[Hg] - Sitting 97.20 Ear 94.00 % 84.00/ min 22.00/min 80167 001 08943 3 95.00 mm[Hg] - Sitting 152.00 mm[Hg] - Sitting 98.00 Oral 94.00 % 92.00/ min 20.00/min 74925 001 87970 1 95.00 mm[Hg] - Sitting 152.00 mm[Hg] - Sitting 156.00 NI 98.00 Ear 92.00/ min 37444 002 41260 3 73.00 mm[Hg] - Sitting 121.00 mm[Hg] - Sitting 98.40 Oral 93.00 % 98.00/ min 16.00/min 32373 002 21935 3 00062 003 56041 1 89.00 mm[Hg] - Sitting 160.00 mm[Hg] - Sitting 97.60 Oral 98.00 % 87.00/ min 16.00/min 76233 003 50485 8 157.00 NI 18693 005 02992 6 159.00 NI 66932 006 69384 7 71.00 mm[Hg] - Sitting 113.00 mm[Hg] - Sitting 97.60 Ear 96.00 % 81.00/ min 20.00/min Immunizations Vaccine Date Status COVID-19 03/14/2020 Completed COVID-19 04/04/2020 Completed Influenza 12/06/2019 Completed Influenza 11/01/2020 Admitted After F van Season (PCV13)Pneumococcal 08/26/2014 Completed (PPSV23)Pneumococcal 10/26/2005 Completed Shingles 12/04/2019 Completed
--- OUTSIDE RECORDS SUMMARY | 2023-12-14 10:51 | External Medical Summary | Continuity Of Care Document ---
Author Name Unknown Address [address] [place] [address] Organization [facility] ( ) Care Team Providers Care Condenser Setter Name Role Phone Delmer Valles Primary Care Provider [phone] Problems Code Description Start Date End Date Status R06.02 Shortness of breath 2023 Activ e N39.0 Urinary tract infection, site not specified Active I50.32 Chronic diastolic (congestive) heart failure Active R79.89 Other specified abno rmal findings of blood chemistry 2023 Active E03.9 Hypothyroidism, unspecified 2023 Active I25.10 Atherosclerotic hear t disease of [place] coronary artery without angina pectoris 2023 Active Z95.1 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 Essential (primary) hypertension 2023 Active N18.30 Chronic kidney disease, stage 3 unspecified Active I48.91 Unspecified atrial fibrillation 2023 Active I50.9 Heart failure, unspecified 2023 0 Active K21.9 Gastro-esophageal re flux disease without esophagitis 2023 Active J18.9 Pneumonia, unspecified organism 2023 Active VITAL SIGNS Date Time Diastolic blood pressure Systolic blood pressure Body height Body weight Temperature SpO2 Blood Sugar Pulse Respirations 85758 925 65645 7 59 NI 70299 925 52219 2 154.00 NI 77982 925 27019 5 101.00 mm[Hg] - Sitting 159.00 mm[Hg] - Sitting 96.90 Oral 78.00/ min 18.00/min 68967 925 64318 4 101.00 mm[Hg] - Sitting 159.00 mm[Hg] - Sitting 59 NI 154.00 NI 96.90 Ear 97.00 % 75.00/ min 18.00/min 20530 925 45743 3 75.00/ min 18.00/min 65259 925 15873 3 75.00/ min 49427 926 88175 9 50660 926 23226 5 41823 926 62386 9 95903 926 47928 9 155.80 [place] 38210 926 72092 3 101.00 mm[Hg] - Sitting 159.00 mm[Hg] - Sitting 96.90 Ear 75.00/ min 18.00/min 30042 926 26156 8 63.00 mm[Hg] - Sitting 118.00 mm[Hg] - Sitting 98.40 Ear 96.00 % 75.00/ min 20.00/min 61508 927 06594 0 73.00 mm[Hg] - Sitting 109.00 mm[Hg] - Sitting 98.40 Ear 93.00 % 74.00/ min 18.00/min 18184 927 08624 2 156.00 NI 49926 927 55100 7 02561 927 54831 6 98.10 Oral 03219 928 71569 5 57504 928 19460 7 01765 928 28811 1 09814 928 04940 7 68.00 mm[Hg] - Sitting 118.00 mm[Hg] - Sitting 98.20 Oral 95.00 % 72.00/ min 18.00/min 23585 929 40178 0 66.00 mm[Hg] - Sitting 113.00 mm[Hg] - Sitting 98.70 Oral 94.00 % 72.00/ min 18.00/min 41984 930 67278 4 90.00 mm[Hg] - Sitting 170.00 mm[Hg] - Sitting 97.20 Ear 94.00 % 84.00/ min 22.00/min 22514 001 61002 3 95.00 mm[Hg] - Sitting 152.00 mm[Hg] - Sitting 98.00 Oral 94.00 % 92.00/ min 20.00/min 65096 001 81203 1 95.00 mm[Hg] - Sitting 152.00 mm[Hg] - Sitting 156.00 NI 98.00 Ear 92.00/ min 52923 002 89663 3 73.00 mm[Hg] - Sitting 121.00 mm[Hg] - Sitting 98.40 Oral 93.00 % 98.00/ min 16.00/min 45859 002 75586 3 50805 003 34589 1 89.00 mm[Hg] - Sitting 160.00 mm[Hg] - Sitting 97.60 Oral 98.00 % 87.00/ min 16.00/min 72254 003 49349 8 157.00 NI 88403 005 71699 6 159.00 NI 006 88622 7 71.00 mm[Hg] - Sitting 113.00 mm[Hg] - Sitting 97.60 Ear 96.00 % 81.00/ min 20.00/min Immunizations Vaccine Date Status COVID-19 03/14/2020 Completed COVID-19 04/04/2020 Completed Influenza 12/06/2019 Completed Influenza 11/01/2020 Admitted After F van Season (PCV13)Pneumococcal 08/26/2014 Completed (PPSV23)Pneumococcal 10/26/2005 Completed Shingles 12/04/2019 Completed
--- OUTSIDE RECORDS SUMMARY | 2023-12-14 10:51 | External Medical Summary | Continuity Of Care Document ---
Author Name Unknown Address [address] [place] [address] Organization [facility] ( ) Care Team Providers Care Granite Cutter Name Role Phone Delmer Valles Primary Care Provider [phone] VITAL SIGNS Date Time Diastolic blood pressure Systolic blood pressure Body height Body weight Temperature SpO2 Blood Sugar Pulse Respirations 97850 925 83642 7 59 NI 88122 925 33069 2 154.00 NI 86134 925 81007 5 101.00 mm[Hg] - Sitting 159.00 mm[Hg] - Sitting 96.90 Oral 78.00/ min 18.00/min 10889 925 67663 4 101.00 mm[Hg] - Sitting 159.00 mm[Hg] - Sitting 59 NI 154.00 NI 96.90 Ear 97.00 % 75.00/ min 18.00/min 87613 925 71816 3 75.00/ min 18.00/min 69237 925 71256 3 75.00/ min 94467 926 60337 9 05830 926 19819 5 85881 926 70592 9 80667 926 25930 9 155.80 NI 81574 926 19168 3 101.00 mm[Hg] - Sitting 159.00 mm[Hg] - Sitting 96.90 Ear 75.00/ min 18.00/min 71158 926 80827 8 63.00 mm[Hg] - Sitting 118.00 mm[Hg] - Sitting 98.40 Ear 96.00 % 75.00/ min 20.00/min 20485 927 43658 0 73.00 mm[Hg] - Sitting 109.00 mm[Hg] - Sitting 98.40 Ear 93.00 % 74.00/ min 18.00/min 94373 927 53469 2 156.00 NI 33857 927 23066 7 12752 927 77369 6 98.10 Oral 67364 928 15350 5 10690 928 79079 7 26213 928 47076 1 53542 928 94892 7 68.00 mm[Hg] - Sitting 118.00 mm[Hg] - Sitting 98.20 Oral 95.00 % 72.00/ min 18.00/min 65355 929 78478 0 66.00 mm[Hg] - Sitting 113.00 mm[Hg] - Sitting 98.70 Oral 94.00 % 72.00/ min 18.00/min 71455 930 40902 4 90.00 mm[Hg] - Sitting 170.00 mm[Hg] - Sitting 97.20 Ear 94.00 % 84.00/ min 22.00/min 46587 001 34984 3 95.00 mm[Hg] - Sitting 152.00 mm[Hg] - Sitting 98.00 Oral 94.00 % 92.00/ min 20.00/min 67274 001 49737 1 95.00 mm[Hg] - Sitting 152.00 mm[Hg] - Sitting 156.00 NI 98.00 Ear 92.00/ min 69262 002 43948 3 73.00 mm[Hg] - Sitting 121.00 mm[Hg] - Sitting 98.40 Oral 93.00 % 98.00/ min 16.00/min 35479 002 51459 3 33122 003 45917 1 89.00 mm[Hg] - Sitting 160.00 mm[Hg] - Sitting 97.60 Oral 98.00 % 87.00/ min 16.00/min 78369 003 15130 8 157.00 NI 47600 005 96071 6 159.00 NI 34034 006 78709 7 71.00 mm[Hg] - Sitting 113.00 mm[Hg] - Sitting 97.60 Ear 96.00 % 81.00/ min 20.00/min Immunizations Vaccine Date Status COVID-19 03/14/2020 Completed COVID-19 04/04/2020 Completed Influenza 12/06/2019 Completed Influenza 11/01/2020 Admitted After F van Season (PCV13)Pneumococcal 08/26/2014 Completed (PPSV23)Pneumococcal 10/26/2005 Completed Shingles 12/04/2019 Completed
--- OUTSIDE RECORDS SUMMARY | 2023-12-14 10:51 | External Medical Summary | Continuity Of Care Document ---
Author Name Unknown Address [address] [place] [address] Organization [facility] ( ) Care Team Providers Care Plastic Welding Machine Operator Name Role Phone Delmer Valles Primary Care Provider [phone] VITAL SIGNS Date Time Diastolic blood pressure Systolic blood pressure Body height Body weight Temperature SpO2 Blood Sugar Pulse Respirations 77787 925 35189 7 59 NI 28593 925 99506 2 154.00 NI 56722 925 87367 5 101.00 mm[Hg] - Sitting 159.00 mm[Hg] - Sitting 96.90 Oral 78.00/ min 18.00/min 45261 925 02418 4 101.00 mm[Hg] - Sitting 159.00 mm[Hg] - Sitting 59 NI 154.00 NI 96.90 Ear 97.00 % 75.00/ min 18.00/min 18296 925 65879 3 75.00/ min 18.00/min 42253 925 78089 3 75.00/ min 37588 926 37931 9 79888 926 69223 5 25011 926 97281 9 83287 926 08181 9 155.80 NI 61752 926 88467 3 101.00 mm[Hg] - Sitting 159.00 mm[Hg] - Sitting 96.90 Ear 75.00/ min 18.00/min 56933 926 91681 8 63.00 mm[Hg] - Sitting 118.00 mm[Hg] - Sitting 98.40 Ear 96.00 % 75.00/ min 20.00/min 46280 927 67040 0 73.00 mm[Hg] - Sitting 109.00 mm[Hg] - Sitting 98.40 Ear 93.00 % 74.00/ min 18.00/min 96566 927 15182 2 156.00 NI 15416 927 81627 7 36309 927 80552 6 98.10 Oral 13734 928 00627 5 98391 928 75278 7 16363 928 37108 1 42417 928 93259 7 68.00 mm[Hg] - Sitting 118.00 mm[Hg] - Sitting 98.20 Oral 95.00 % 72.00/ min 18.00/min 30510 929 86418 0 66.00 mm[Hg] - Sitting 113.00 mm[Hg] - Sitting 98.70 Oral 94.00 % 72.00/ min 18.00/min 06321 930 86510 4 90.00 mm[Hg] - Sitting 170.00 mm[Hg] - Sitting 97.20 Ear 94.00 % 84.00/ min 22.00/min 70310 001 88263 3 95.00 mm[Hg] - Sitting 152.00 mm[Hg] - Sitting 98.00 Oral 94.00 % 92.00/ min 20.00/min 08709 001 60157 1 95.00 mm[Hg] - Sitting 152.00 mm[Hg] - Sitting 156.00 NI 98.00 Ear 92.00/ min 83756 002 92626 3 73.00 mm[Hg] - Sitting 121.00 mm[Hg] - Sitting 98.40 Oral 93.00 % 98.00/ min 16.00/min 56821 002 35779 3 73118 003 13135 1 89.00 mm[Hg] - Sitting 160.00 mm[Hg] - Sitting 97.60 Oral 98.00 % 87.00/ min 16.00/min 96279 003 00424 8 157.00 NI 00434 005 70225 6 159.00 NI 80424 006 60582 7 71.00 mm[Hg] - Sitting 113.00 mm[Hg] - Sitting 97.60 Ear 96.00 % 81.00/ min 20.00/min Immunizations Vaccine Date Status COVID-19 03/14/2020 Completed COVID-19 04/04/2020 Completed Influenza 12/06/2019 Completed Influenza 11/01/2020 Admitted After F van Season (PCV13)Pneumococcal 08/26/2014 Completed (PPSV23)Pneumococcal 10/26/2005 Completed Shingles 12/04/2019 Completed
--- OUTSIDE RECORDS SUMMARY | 2023-12-14 10:51 | External Medical Summary | Summary of Care ---
Author Name Unknown Organization [facility] Address [address] [place] [address] Phone [phone] Care Team Providers Care Engineer Second Assistant Name Role Phone Gilbert Calloway MD Primary Care Provide r Reason for Visit * Reason Onset Date Comments Skilled Visit 11/22/2023 Encounter Details Date Type Department Care Team (Latest Contact Info) Description 11/21/2023 10:30 AM EDT [facility] Visit [facility] [address] [place] [address] Vero Ken PA-C [address] [place] [address] Bacterial pneumonia*; Acute UTI (urinary tract infection); Hypertensive heart and kidney disease with chronic diastolic congestive heart failure and stage 3b chronic kidney disease (HCC) Allergies Active Allergy Reactions Criticality Noted Date Comments Ergotamine 03/01/2000 vomit Nitroglycerin 03/14/2007 vomitting documented as of this encounter (statuses as of 11/22/2023) Medications Medication Sig Dispensed Refills Start Date End Date Status Acetaminophen 500 MG Oral Tablet (Tylenol)Indications:G eneralized osteoarthritis Take 1 Tablet by mouth in the morning and 1 Tablet at noon and 1 Tablet before bedtime. 100 Tablet 04/09/2023 Active documented as of this encounter (statuses as of 11/22/2023) Active Problems Problem Noted Date Diagnosed Date [...] Her weights are [place] [facility] She appears euvolemic today. Spondylosis of lumbar [...] replacement status 09/09/2002 Atherosclerosis of [place] co ronary artery of [place] heart without angina pectoris Last Assessment & Plan: Stable no angina -continue rosuvastatin, metopropolol, Primary hypertension Gastroesophageal reflux dise ase with esophagitis without hemorrhage Last Assessment & Plan: symptoms controlled on pantoprazole Scoliosis of lumbar spine Mixed incontinence urge and stress (male)(female ) documented as of this encounter (statuses as of 11/22/2023) Resolved Problems Problem Noted Date Diagnosed Date [...] as of this encounter (statuses as of 11/22/2023) Immunizations Name Administration Dates Next Due COVID-19 [...] AM EDT Scheduled Telephone [facility], [facility] [address] [facility] [place] [address] Marla Liang, [address] [facility] [place] [address] 04/04/2024 2:40 PM EST Office Visit Nephrology, [facility] [address] [place] [address] Tirso Shah MD [address] [facility] [place] [address] 06/30/2024 10:00 AM EDT Office Visit Family Medicine [address] [place] [phone] Gilbert Calloway MD [address] [place] [address] [place] [address] Health Maintenance Due Date Last Done Comments DTap/Tdap Vaccines (1 - Tdap) 11/15/1957 Adult Wellness Visit 2002 Depression Monitoring 09/29/2020 09/30/2019 Albumin/Creatinine Ratio 07/28/2023 023, 06/09/2020, 03/13/2019, Additional history exists COVID-19 Vaccine ( season) 2023 01/04/2021, 04/19/2020, 04/04/2020, Additional history exists Influenza Vaccine (FLU shot) (#1) 2023 01/10/2022, 11/18/2020, 12/06/2019, Additional history exists CKD HGB USE SMARTSET 23917 11/15/202411/15, 11/16/2023, 03/06/2023, Additional history exists CKD PHOS USE SMARTSET 21048 11/15/202410/21, 10/04/2022, 06/08/2021, Additional history exists TSH [...] as of this encounter Visit Diagnoses Diagnosis Bacterial pneumonia- Primary Bacterial pneumonia, unspecified Acute UTI (urinary tract infection) Urinary tract infection, site not specified Hypertensive heart and kidney disease with chronic diastolic congestive heart failure and stage 3b chronic kidney disease (HCC) documented in this encounter Care Teams Engineer Second Assistant Relationship Specialty Start Date End Date Gilbert Calloway MD [address] [place] [address] [place] [phone] PCP - General Family Medicine 07/30/23 documented as of this encounter
--- OUTSIDE RECORDS SUMMARY | 2023-12-14 10:52 | External Medical Summary | Summary of Care ---
Author Name Unknown Organization [facility] Address [address] [facility] [address] Phone [phone] Care Team Providers Care Sql Application Developer Name Role Phone Gilbert Calloway MD Primary Care Provide r Encounter Details Date Type Department Care Team (Late st Contact Info) Description 11/16/2023 Orders Only Lab Mobile Phlebotomy [facility] [address] [place] [address] Delmer Valles MD [address] [place] [address] [place] [address] Hypothyroidism*; KIM (acute kidney injury) ([facility]) Allergies Active Allergy Reactions Criticality Noted Date Comments Ergotamine 03/01/2000 vomit Nitroglycerin 03/14/2007 vomitting documented as of this encounter (statuses as of 11/16/2023) Medications Medication Sig Dispensed Refills Start Date [...] Tablet before bedtime. 100 Tablet 04/09/2023 Active Gabapentin 300 MG Oral Capsule (Neurontin)Indicatio [...] TWICE DAILY 180 Tablet 3 08/27/2023 Active traZODone HCl 150 MG Oral Tablet [...] AT BEDTIME 90 Tablet 2 10/18/2023 Active Metoprolol Succinate ER 25 MG Oral Tablet Extended Release 24 Hour (toPROL XL) Take 1.5 Tablets by mouth in the morning. In the morning.. 2023 Active Advanced Probiotic Oral Capsule Take 1 Capsule by mouth in the morning. 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[place] co ronary artery of [place] heart without angina pectoris Last Assessment & Plan: Stable no angina -continue rosuvastatin, metopropolol, Primary hypertension Gastroesophageal reflux dise ase with esophagitis without hemorrhage Last Assessment & Plan: symptoms controlled on pantoprazole Scoliosis of lumbar spine Mixed incontinence urge and stress (male)(female ) documented as of this encounter (statuses as of 11/16/2023) Resolved Problems Problem Noted Date Diagnosed Date [...] BP at goal at metoprolol Acquired hypothyroidism 01/19/201612/222016 Gastric ulcer 06/30/2014 06/26/2017 Overview: hgb 7.4 [...] as of this encounter (statuses as of 11/16/2023) Immunizations Name Administration Dates Next Due COVID-19 [...] Care Team (Late st Contact Info) Description 11/16/2023 5:00 AM EDT Laboratory Lab Mobile Phlebotomy [facility] [address] [facility] [place] [address] [place] [address] 04/04/2024 2:40 PM EST Office Visit Nephrology, [facility] [address] [facility] [place] [address] Tirso Shah MD [address] [facility] [place] [address] 06/30/2024 10:00 AM EDT Office Visit Family Medicine [address] [place] [phone] Gilbert Calloway MD [address] [place] [address] [place] [address] Scheduled Orders Name Type Priority Associated Diagnoses Orde r Schedule CBC WITH WBC DIFFERENTIAL Lab Routine Hypothyroidism KIM (acute kidney injury) (HCC) Expected: 11/16/2023, Expires: 11/15/2024 TSH WITH FREE T4 IF INDICATED Lab Routine Hypothyroidism KIM (acute kidney injury) (HCC) Expected: 11/16/2023, Expires: 11/15/2024 PHOSPHORUS Lab Routine Hypothyroidism KIM (acute kidney injury) (HCC) Expected: 11/16/2023, Expires: 11/15/2024 Health Maintenance Due Date Last Done Comments DTap/Tdap Vaccines (1 - Tdap) 11/15/1957 Adult Wellness Visit 2002 Depression Monitoring 09/29/2020 09/30/2019 Albumin/Creatinine Ratio 07/28/2023 023, 06/09/2020, 03/13/2019, Additional history exists TSH 07/28/2023 07/27/2022, 05/21, 06/09/2020, Additional history exists CKD PHOS USE SMARTSET 25648 10/05/202309/19, 06/08/2021, 09/07/2020, Additional history exists COVID-19 Vaccine ( season) 2023 01/04/2021, 04/19/2020, 04/04/2020, Additional history exists Influenza Vaccine (FLU shot) (#1) 2023 01/10/2022, 11/18/2020, 12/06/2019, Additional history exists CKD HGB USE SMARTSET 61402 03/06/202403/06, 03/06/2023, 10/04/2022, Additional history exists Pneumococcal [...] as of this encounter Visit Diagnoses Diagnosis Hypothyroidism- Primary Unspecified hypothyroidism KIM (acute kidney injury) (HCC) Acute kidney failure, unspecified documented in this encounter Care Teams Sql Application Developer Relationship Specialty Start Date End Date Gilbert Calloway MD [address] [place] [address] [place] [address] PCP - General Family Medicine 07/30/23 documented as of this encounter
--- OUTSIDE RECORDS SUMMARY | 2023-12-14 10:52 | External Medical Summary | Summary of Care ---
Author Name Unknown Organization [facility] Address [address] [place] [address] Phone [phone] Care Team Providers Care Client Server Programmer Name Role Phone Gilbert Calloway MD Primary Care Provide r Encounter Details Date Type Department Care Team (Late st Contact Info) Description 11/19/2023 Population Health External Data Unspecified Department Allergies Active Allergy Reactions Criticality Noted Date Comments Ergotamine 03/01/2000 vomit Nitroglycerin 03/14/2007 vomitting documented as of this encounter (statuses as of 11/19/2023) Medications Medication Sig Dispensed Refills Start Date [...] as of this encounter (statuses as of 11/19/2023) Active Problems Problem Noted Date Diagnosed Date [...] concerns. She is aware [facility] does not manage chronic pain 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[place] ronary artery of [place] heart without angina pectoris Last Assessment & Plan: Stable no angina -continue rosuvastatin, metopropolol, Primary hypertension Gastroesophageal reflux dise ase with esophagitis without hemorrhage Last Assessment & Plan: symptoms controlled on pantoprazole Scoliosis of lumbar spine Mixed incontinence urge and stress (male)(female ) documented as of this encounter (statuses as of 11/19/2023) Resolved Problems Problem Noted Date Diagnosed Date [...] as of this encounter (statuses as of 11/19/2023) Immunizations Name Administration Dates Next Due COVID-19 [...] 2:40 PM EST [facility] [address] Tirso Shah [facility] [address] [facility] [address] 06/30/2024 10:00 AM EDT Office Visit Family Medicine [address] [phone] Gilbert Calloway MD [address] [place], [place] [address] Health Maintenance Due Date Last Done Comments DTap/Tdap Vaccines (1 - Tdap) 11/15/1957 Adult Wellness Visit 2002 Depression Monitoring 09/29/2020 09/30/2019 Albumin/Creatinine Ratio 07/28/2023 023, 06/09/2020, 03/13/2019, Additional history exists COVID-19 Vaccine ( season) 2023 01/04/2021, 04/19/2020, 04/04/2020, Additional history exists Influenza Vaccine (FLU shot) (#1) 2023 01/10/2022, 11/18/2020, 12/06/2019, Additional history exists CKD HGB USE SMARTSET 44288 11/15/202411/15, 11/16/2023, 03/06/2023, Additional history exists CKD PHOS USE SMARTSET 72928 11/15/2024 0908/2023, 10/04/2022, 06/08/2021, Additional history exists [...] filedocumented as of this encounter Care Teams Client Server Programmer Relationship Specialty Start Date End Date Gilbert Calloway MD [address] [place] [address] [place] [phone] PCP - General Family Medicine 07/30/23 documented as of this encounter
--- OUTSIDE RECORDS SUMMARY | 2023-12-14 10:52 | External Medical Summary | Summary of Care ---
Author Name Unknown Organization [facility] Address [address] [place] [address] Phone [phone] Care Team Providers Care Supervisor Cleaning And Annealing Name Role Phone Gilbert Calloway MD Primary Care Provide r Reason for Visit * Reason Onset Date Comments Skilled Visit 11/15/2023 Encounter Details Date Type Department Care Team (Latest Contact Info) Description 11/15/2023 6:00 AM EDT [facility] Visit [facility] [address] [place] [address] Vero Ken PA-C [address] [place] [address] Bacterial pneumonia*; Acute UTI; Hypertensive heart and kidney disease with chronic diastolic congestive heart failure and stage 3b chronic kidney disease (HCC); Atherosclerosis of [place] coronary artery of [place] heart without angina pectoris; Chronic atrial fibrillation (HCC) Allergies Active Allergy Reactions Criticality Noted Date Comments Ergotamine 03/01/2000 vomit Nitroglycerin 03/14/2007 vomitting documented as of this encounter (statuses as of 11/15/2023) Medications Medication Sig Dispensed Refills Start Date [...] as of this encounter (statuses as of 11/15/2023) Active Problems Problem Noted Date Diagnosed Date [...] discuss her pain concerns. She is aware [facility] does not manage chronic pain meds. With her history of confusion, would recommend against use of narcotic medication. Mild aortic stenosis 07/27/2021 Last Assessment & Plan: Following with cardiology Aortocoronary bypass status 03/09/2021 Chronic atrial fibrillation 03/01/2021 Overview: new onset, [facility] on apixaban Last Assessment & Plan: Her [...] as of this encounter (statuses as of 11/15/2023) Resolved Problems Problem Noted Date Diagnosed Date [...] as of this encounter (statuses as of 11/15/2023) Immunizations Name Administration Dates Next Due COVID-19 [...] EST Office Visit Nephrology, [facility] [address] [facility] [place] [address] Tirso Shah MD [address] [place] [address] 06/30/2024 10:00 AM EDT Office Visit Family Medicine [address] [place] [phone] Gilbert Calloway MD [address] [place] [address] [place] [id number] Health Maintenance Due Date Last Done Comments DTap/Tdap Vaccines (1 - Tdap) 11/15/1957 Adult Wellness Visit 2002 Depression Monitoring 09/29/2020 09/30/2019 Albumin/Creatinine Ratio 07/28/2023 023, 06/09/2020, 03/13/2019, Additional history exists TSH 07/28/2023 07/27/2022, 05/21, 06/09/2020, Additional history exists CKD PHOS USE SMARTSET 09878 10/05/202309/19, 06/08/2021, 09/07/2020, Additional history exists COVID-19 Vaccine ( season) 2023 01/04/2021, 04/19/2020, 04/04/2020, Additional history exists Influenza Vaccine (FLU shot) (#1) 2023 01/10/2022, 11/18/2020, 12/06/2019, Additional history exists CKD HGB USE SMARTSET 53095 03/06/202403/06, 03/06/2023, 10/04/2022, Additional history exists Pneumococcal [...] pneumonia- Primary Bacterial pneumonia, unspecified Acute UTI Urinary tract infection, site not specified Hypertensive heart and kidney disease with chronic diastolic congestive heart failure and stage 3b chronic kidney disease (HCC) Atherosclerosis of [place] coronary artery of [place] heart without angina pectoris Chronic atrial fibrillation (HCC) Atrial fibrillation documented in this encounter Care Teams Supervisor Cleaning And Annealing Relationship Specialty Start Date End Date Gilbert Calloway MD [address] [place] [address] [place] [phone] PCP - General Family Medicine 07/30/23 documented as of this encounter
--- OUTSIDE RECORDS SUMMARY | 2023-12-14 10:52 | External Medical Summary | Summary of Care ---
Author Name Unknown Organization [facility] Address [address] [place] [address] Phone [phone] Care Team Providers Care Consumer Credit Counselor Name Role Phone Gilbert Calloway MD Primary Care Provide r Reason for Visit * Reason Onset Date Comments Skilled Visit 11/19/2023 Encounter Details Date Type Department Care Team (Latest Contact Info) Description 11/19/2023 12:30 PM EDT [facility] Visit [facility] [address] [place] [address] Vero Ken PA-C [address] [place] [address] Bacterial pneumonia*; Acute UTI (urinary tract infection); Hypertensive heart and kidney disease with chronic diastolic congestive heart failure and stage 3b chronic kidney disease (HCC); Chronic heart failure with preserved ejection fraction (HCC) Allergies Active Allergy Reactions Criticality Noted 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[place]ary artery of [place] heart without angina pectoris Last Assessment & [...] No 03/07/2023 [facility] the [facility]? (Household [...] Care Team (Late st Contact Info) Description 11/21/2023 1:00 PM EDT Scheduled Telephone [facility], [facility] [address] [facility] [place] [address] Marla Liang, [address] [facility] [place] [address] 04/04/2024 2:40 PM EST Office Visit Nephrology, [facility] [address] [place] [address] Tirso Shah MD [address] [facility] [place] [address] 06/30/2024 10:00 AM EDT Office Visit Family Medicine [address] [place] [phone] Gilbert Calloway MD [address] [place] [address] [place] [phone] Health Maintenance Due Date Last Done Comments DTap/Tdap Vaccines (1 - Tdap) 11/15/1957 Adult Wellness Visit 2002 Depression Monitoring 09/29/2020 09/30/2019 Albumin/Creatinine Ratio 07/28/2023 023, 06/09/2020, 03/13/2019, Additional history exists COVID-19 Vaccine ( season) 2023 01/04/2021, 04/19/2020, 04/04/2020, Additional history exists Influenza Vaccine (FLU shot) (#1) 2023 01/10/2022, 11/18/2020, 12/06/2019, Additional history exists CKD HGB USE SMARTSET 59343 11/15/202411/15, 11/16/2023, 03/06/2023, Additional history exists CKD PHOS USE SMARTSET 52179 11/15/202410/21, 10/04/2022, 06/08/2021, Additional history exists TSH [...] stage 3b chronic kidney disease (HCC) Chronic heart failure with preserved ejection fraction (HCC) documented in this encounter Care Teams Consumer Credit Counselor Relationship Specialty Start Date End Date Gilbert Calloway MD [address] [place] [address] [place] [phone] PCP - General Family Medicine 07/30/23 documented as of this encounter
--- OUTSIDE RECORDS SUMMARY | 2023-12-14 10:52 | External Medical Summary ---
Author Name Unknown Address Unknown Organization [facility] [address] [place] [address] Laboratory Report Ordering Provider Test Date Status DELMY MCKEON 11/16/2023 05:30:00 Final Observation Date Value Abnormality Reference (Units ) Status Nucleated erythrocytes/100 leukocytes [Ratio] in Blood by Automated count 11/16/2023 05:30:00 Final Variant lymphocytes [Presence] in Blood by Light microscopy 11/16/2023 05:30:00 Present Abnormal None Seen Final Performing Location [facility] [address] [place] [id number]
--- OUTSIDE RECORDS SUMMARY | 2023-12-14 10:52 | External Medical Summary | Summary of Care ---
Author Name Unknown Organization [facility] Address [address] [place] [address] Phone [phone] Care Team Providers Care Cover Making Machine Operator Name Role Phone Gilbert Calloway MD Primary Care Provide r Reason for Referral * Evaluate & Treat - Unlimited Visits (Within 10 days (routine)) - Authorized Specialty Diagnoses / Procedures Referred By Marlon eldridge Referred To Contact HOME CARE / Home Care Diagnoses Bacterial pneumonia Acute UTI Vero Ken PA-C [address] [place] [address] Referral ID Status Reason Start Date Expiration Date Visits Requested Visits Authorized [id number] Authorized Specialty Services Required 11/22/[phone] Question Answer Referral Priority Within 10 days (routine) Where should this appointment be scheduled? Addis Comments Documentation of [id number] Encounter Addendum Patient Name: Zoya Howard I certify that this patient is under my care and that I, or a nurse practitioner or physician's acute care assistant working with me, had a [id number] encounter that meets the physician [id number] encounter requirements with this patient on: 11/22/23 The encounter with the patient was in whole, or in part, for the following medical condition, which is the primary reason for home health care (List medical condition): BACTERIAL PNEUMONIA, UTI, CHF, HTN I certify that, based on my findings, the following services are medically necessary home health services: Nursing, Physical Therapy, and OT To provide the following care/treatments: (All hospitalists not following the patient after discharge should complete this section): Primary Care Physician to follow home care plan of care after discharge: FIVE TO SEVEN DAYS My clinical findings support the need for the above services because: LIMITED MOBILITY DUE TO DJD, RECENT PNEUMONIA AND UTI Further, I certify that my clinical findings support that this patient is homebound (i.e. Absences from home require considerable and taxing effort and are for medical reasons or shinto services or infrequently or of short duration when for other reason) because: Physician Signature: Date of Signature: Physician Printed Name: Vero Ken PA-C Reason for Visit * Reason Onset Date Comments Long Term Visit - Discharge 11/22/2023 Encounter Details Date Type Department Care Team (Latest Contact Info) Description 11/22/2023 10:00 AM EDT Long Term Visit [address] [address] Vero Ken PA-C [address] [place] [id number] Bacterial pneumonia*; Acute UTI; Hypertensive heart and kidney disease with chronic diastolic congestive heart failure and stage 3b chronic kidney disease (HCC); Atherosclerosis of [place] coronary artery of [place] heart without angina pectoris; Gastroesophageal reflux disease with esophagitis without hemorrhage; Chronic atrial fibrillation (HCC); Major depressive disorder with single episode, in partial remission (HCC); Acquired hypothyroidism; Cognitive deficits Allergies Active Allergy Reactions Criticality Noted Date Comments Ergotamine 03/01/2000 vomit Nitroglycerin 03/14/2007 vomitting documented as of this encounter (statuses as of 11/22/2023) Medications Medication Sig Dispensed Refills Start Date End Date Status Acetaminophen 500 MG Oral Tablet (Tylenol)Indications :Generalized osteoarthritis Take 1 Tablet by mouth in the morning and 1 Tablet at noon and 1 Tablet before bedtime. 100 Tablet 04/09/2023 Active Benzonatate 100 MG Oral Capsule (Tessalon Perles)Indications:V iral URI with cough Take 1 Capsule by mouth 3 times a day as needed for Cough. 30 Capsule 1 01/15/2023 4 Discontinue d(Refill) Gabapentin 300 MG Oral Capsule (Neurontin)Indicatio ns:DDD (degenerative disc disease), lumbar take 1 capsule three times daily 90 Capsule 5 07/26/2023 4 Discontinue d(Refill) Torsemide 20 MG Oral Tablet (Demadex) Take 1 Tablet by mouth daily as needed (swelling, wt gain>2 lbs). 30 Tablet 08/02/2023 4 Discontinue d(Refill) Ondansetron HCl 4 MG Oral Tablet (Zofran)Indications: Nausea TAKE ONE TABLET BY MOUTH EVERY 6 HOURS NEEDED FOR NAUSEA 30 Tablet 1 08/07/2023 4 Discontinue d(Refill) Calcitriol 0.25 MCG Oral Capsule (Rocaltrol) TAKE 1 CAPSULE ON MONDAYS, WEDNESDAYS, AND FRIDAYS 45 Capsule 1 08/24/2023 4 Discontinue d(Refill) busPIRone HCl 10 MG Oral Tablet (Buspar)Indications: Anxiety state TAKE ONE TABLET BY MOUTH TWICE DAILY 60 Tablet 5 08/24/2023 4 Discontinue d(Refill) Loperamide HCl 2 MG Oral Capsule (Imodium)Indications :Chronic diarrhea TAKE ONE CAPSULE BY MOUTH FOUR TIMES DAILY NEEDED 60 Capsule 1 08/27/2023 4 Discontinue d(Refill) Eliquis 5 MG Oral Tablet (Apixaban) TAKE ONE TABLET BY MOUTH TWICE DAILY 180 Tablet 3 08/27/2023 4 Discontinue d(Refill) traZODone HCl 150 MG Oral Tablet (Desyrel)Indications :Persistent insomnia Take 1 Tablet by mouth at bedtime. 90 Tablet 1 10/12/2023 4 Discontinue d(Refill) Levothyroxine Sodium 100 MCG Oral Tablet (Levoxyl) TAKE ONE TABLET IN THE MORNING 90 Tablet 10/19/2023 4 Discontinue d(Refill) Pantoprazole Sodium 40 MG Oral Tablet Delayed Release (Protonix)Indication s:Gastric ulcer without hemorrhage or perforation, unspecified chronicity,Gastroeso phageal reflux disease with esophagitis without hemorrhage TAKE ONE TABLET TWICE DAILY 180 Tablet 2 10/18/2023 4 Discontinue d(Refill) Rosuvastatin Calcium 10 MG Oral Tablet (Crestor)Indications :Dyslipidemia, goal LDL below 100 TAKE ONE TABLET AT BEDTIME 90 Tablet 2 10/18/2023 4 Discontinue d(Refill) Metoprolol Succinate ER 25 MG Oral Tablet Extended Release 24 Hour (toPROL XL) Take 1.5 Tablets by mouth in the morning. In the morning.. 2023 4 Discontinue d(Refill) Advanced Probiotic Oral Capsule Take 1 Capsule by mouth in the morning. 2023 4 Discontinue d(Refill) documented as of this [...] discuss her pain concerns. She is aware [facility] does not manage chronic pain meds. 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[place] co ronary artery of [place] heart without angina pectoris Last Assessment & [...] Progress Notes * Vero Ken PA-C - 11/22/2023 2:07 PM EDT DISCHARGE NOTE TRANSITION EVENT: Type: Discharge to home Date: November 21 Code Status: Full Code Name: Zoya Howard Date of : 1938 This note pertains to care provided at [facility]. Please see facility medical record for original note. This note is not to be edited or addended in [facility]. Editing or addending needs to occur in the facilities medical record. Discharge Medications: Current Outpatient Medications Medication Sig Dispense Refill Benzonatate 100 MG Oral Capsule (Tessalon Perles) Take 1 Capsule by mouth 3 times a day as needed for Cough. 30 Capsule 1 Acetaminophen 500 MG Oral Tablet (Tylenol) Take 1 Tablet by mouth in the morning and 1 Tablet at noon and 1 Tablet before bedtime. 100 Tablet 0 Gabapentin 300 MG Oral Capsule (Neurontin) take [...] BY MOUTH TWICE DAILY 180 Tablet 3 traZODone HCl 150 MG Oral Tablet (Desyrel) Take 1 Tablet by mouth at bedtime. 90 Tablet 1 Levothyroxine Sodium 100 MCG Oral Tablet (Levoxyl) TAKE ONE TABLET IN THE MORNING 90 Tablet 0 Pantoprazole Sodium 40 MG Oral Tablet Delayed Release (Protonix) TAKE ONE TABLET TWICE DAILY 180 Tablet 2 Rosuvastatin Calcium 10 MG Oral Tablet (Crestor) TAKE ONE TABLET AT BEDTIME 90 Tablet 2 Metoprolol Succinate ER 25 MG Oral Tablet Extended Release 24 Hour (toPROL XL) Take 1.5 Tablets by mouth in the morning. In the morning.. Advanced Probiotic Oral Capsule Take 1 Capsule by mouth in the morning. No current facility-administered medications for this visit. S: Zoya Howard is being discharged from [facility] to . Note from 11/14/23. Zoya Howard had been admitted to [facility] from [facility] (previously at [facility]) for PT and OT. Recently admitted to [facility] on 11/03/23-11/09/23 and then to [facility] for PT/OT because of pneumonia and UTI and was transferred here and admitted on 2023. Patient recently established with Dr. Calloway and known to [facility] from prior admissions with PMH of hypertension with stage 3b CKD, depression, anxiety, chronic back and hip pain previously on chronic narcotics, insomnia, aortic stenosis, GERD, h/o gastric ulcer, OA, CAD s/p CABG, chronic diastolic CHF, and hiatal hernia who was transferred today from [facility] for ongoing PT/OT. Patient resides in an independent apartment at [facility]. [facility] records are not available other than the discharge medication list and patient discharge instructions. Patient states she went to the hospital because she was short of breath but does not know what they found. It appears she was diagnosed with pneumonia and a UTI and completed antibiotics prior to discharge. Patient states she was short of breath but denies having had urinary symptoms. Patient is not sure why she is now here instead of going home after being at [facility]. Appears she wasfelt to need more PT/OT before returning home to her apartment. At [facility], she was started on Ambien last night but had not been receiving it in the hospital. Per outpatient records, she recently established with her new PCP in September of 2023 and her Trazodone for insomnia was refilled. Patient reported at that appointment she had not been taking Ambien but used to. Per PDMP, she had severalrecent Ambien fills from Dr. Adams, most recently 10/16/23, 08/14/23, 07/13/23, and and 06/15/23. Hadbeen on Ambien for years until being discontinued in April of 2023. Patient with history of long-term chronic narcotic use but has been off narcotics since 2021. She was referred to pain medicine in May of 2023 after requesting Tylenol #3 at an office visit. Patient was also started on ferrous sulfate at [facility] but had not been taking it prior to admission. Does have chronic anemia and CKD. Patient is seen while sitting in a recliner in her room. She appears comfortable. She states she does not know why she is here and not home. She reports that her lunch was not very good but her appetite is otherwise OK. Her breathing is doing much better. She denies any cough, congestion, or shortness of breath. States she gets twinges of chest pain chronically but that has not changed. Patient is on torsemide just as needed for weight gain over 2 pounds in 24 hours. She does follow with cardiology. Denies increased leg swelling. CBC Results: Results for orders placed or [...] PM HGB 11.6 (L) 09/06/2018 03:16 PM Creatinine Results: Lab Results Component Value Date/Time [...] - OUTSIDE LAB 0.595 03/11/2018 12:00 AM Has history of : Past Medical History: Diagnosis Date (HFpEF) heart failure with preserved ejection fraction ([facility]) 12/07/2022 Acute on chronic combined systolic and diastolic CHF (congestive heart failure) ([facility]) 03/28/2021 admitted [facility] Anxiety state Anxiety State Aortic valve stenosis, mild 03/01/2021 Aortocoronary bypass status Atherosclerosis of [place] coronary artery of [place] heart without angina pectoris Atrial fibrillation ([facility]) 12/09/2020 during admission [place] Benign hypertension with CKD (chronic kidney disease) stage III ([facility]) Cataract cortical, senile Chronic atrial fibrillation ([facility]) 03/01/2021 new onset, [facility] on apixaban CKD (chronic kidney disease) stage 3, GFR 30-59 ml/min ([facility]) 07/03/2013 GFR 36.9 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 11/01/2020 Coronary atherosclerosis CAD Cystitis 09/16/2018 >100,000 enterococcus pansensitive Cystitis 08/03/2020 10-100,000 E coli pansensitive Depressive disorder, not elsewhere classified Depression Gastric ulcer 06/30/2014 hgb 7.4 admitted [facility] Herpes zoster without complication 11/18/2020 right hip Hiatal hernia 12/07/2022 moderate Hypercalcemia 12/07/2022 Ca 11.6 Hypertension goal BP (blood pressure) < 140/90 Macular hole of left eye Major depression, single episode MEDICATION USE AGREEMENT 03/19/2012 Tylenol with codeine--Reena Meningioma, cerebral ([facility]) 07/16/2022 small frontal cortex meningioma without mass effect Meningioma, cerebral ([facility]) 08/02/2022 Adding D32.0-Meningioma, cerebral (HCC) Dx to History Migraines history of migraines--stopped 1998 Mixed incontinence urge and stress (male)(female) Moderate mitral regurgitation 03/01/[address] Ndiaye Other and unspecified noninfectious gastroenteritis and colitis(558.9) 06/24/2013 admitted [facility] Other forms of retinal detachment(361.89) Pneumonia 01/29/2023 admitted [facility] with pneumonia, sepsis, CHF Pneumonia due to COVID-19 virus 12/09/2020 [place], transferred to [place] Postoperative anemia due to acute blood loss 03/11/2018 hgb 7, given 2 units PRBC hgb 9 on discharge Reflux esophagitis Scoliosis of lumbar spine Syncope and collapse 03/11/2018 hit head, admitted to [facility] Trochanteric bursitis of right hip 10/24/2020 Patient Active Problem List Diagnosis Hip joint replacement status GENERAL OSTEOARTHROSIS Atherosclerosis of [place] coronary artery of [place] heart without angina pectoris ADVANCE DIRECTIVE INFORMATION [...] (HFpEF) heart failure with preserved ejection fraction ([facility]) Hiatal hernia Major depressive disorder with single episode, in partial remission ([facility]) Anxiety state Full code status Past Surgical History: Procedure Laterality Date ABDOMEN SURGERY PROCEDURE NEC liposuction CABG, ARTERIAL, TWO 02/[address] HEAD/BRAIN W/O CONTRAST MATERIAL 07/16/2022 chronic cerebellar infarct COLONOSCOPY, DIAGNOSTIC (RECTUM) 08/01/2016 normal bx/[facility] COLORECTAL CANCER SCREEN;W/FLE 08/2000 CT ABD/PELVIS W IV AND W ORAL CONTRAST N/A 10/05/2020 bilateral hip replacements, DJD of back, otherwise unremarkable. CTA HEAD W CONTRAST 07/14/2022 normal CTA NECK W CONTRAST 07/16/2022 no acute findings EGD, FLEXIBLE, DIAGNOSTIC 07/02/2014 esophagitis chronic gastritis with ulcers/inpt [facility] EGD, FLEXIBLE, DIAGNOSTIC 11/11/2014 reflux esophagitis/[facility] EGD, FLEXIBLE, DIAGNOSTIC 08/01/2016 gastritis, normal bx/[facility] INFORMATION repair retinal tear LASERING OF [...] LTHR VASC DUPLEX CAROTID BILAT 02/2012 Normal Family History Problem Relation Name Age of [...] (Not Specified) Sis (Not Specified) Social History Socioeconomic History Marital status: Spouse [...] Not on file Social History Narrative Zoya Lavinia Lee Boles Social Determinants of Health Financial Resource Strain: Low Risk (03/07/2023) Financial Resource Strain Do you have any trouble paying for your medications, or do you think you might in the future? (Adult - for ages 18 years and over): No Does your family have trouble paying for medicine? (Household - for ages 0-17 years): Not on file Food Insecurity: Food Insecurity Present (03/07/2023) Food Insecurity Do you need food for this week? (Adult - for ages 18 years and over): Yes Are you able to get enough food for your family? (Household - for ages 0-17 years): Not on file Does your family need food this week? (Household - for ages 0-17 years): Not on file Do you always have enough food for your family? (Household - for ages 0-17 years): Not on file Transportation Needs: No Transportation Needs (03/07/2023) Transportation Needs Do you have trouble getting [...] - for ages 18 years and over): Not on file Do you (or your family) have trouble finding or paying for a ride (transportation)? (Household - for ages 0-17 years): Not on file Social Connections: Socially Integrated (03/07/2023) Social Connections How often do you feel lonely or isolated from those around you? (Adult - for ages 18 years and over): Never Housing Stability: Low Risk (03/07/2023) Housing Stability Do you currently live in a penitentiary or have no steady place to sleep [...] - for ages 18 years and over): Not on file Are you (or your family) homeless or worried that you might be in the future? (Household - for ages0-17 years): Not on file Review of patient's allergies indicates: Allergen Reactions Ergotamine vomit Nitro [Nitroglycerin] vomitting Review of Systems: Constitutional ROS: No change in weight, less weakness, less fatigue and No fevers, sweats, or chills Eye ROS: No recent significant change in vision, No eye pain, redness, discharge and No diplopia Ear ROS: No ear pain, No drainage, No tinnitus or vertigo and No recent change in hearing Nose ROS: No nasal stuffiness and No significant epistaxis Mouth/Throat ROS: No thrush or No sore throat Neck ROS: No lumps or masses, No swollen glands, No recent swelling in thyroid area and No significant pain in neck Pulmonary ROS: No cough, sputum, or hemoptysis, No wheezing, No shortness of breath and No recent change in breathing Cardiovascular ROS: No chest pain, No shortness of breath, No edema, No palpitations and No syncope Gastrointestinal ROS: No abdominal pain, No change in bowel habits, No significant change in appetite, No nausea, vomiting, +chronic diarrhea, or constipation and No dysphagia Musculoskeletal/Extremities ROS:DJD Skin/Integumentary ROS: No rash and No itching Neurologic ROS: No headaches and No seizures Psychiatric ROS: +depression, No anxiety and No psychosis Sleep: No sleep disorders SNF course of stay: Yes - STAFF WAS CONCERNED THAT PT IS HAVING COGNITIVE DEFICITS. SHE SCORED 15/15 ON BIMS AND HAS GOOD RECALL WITHIN 20 TO 30 MINUTES BUT CAN'T RECALL EVENTS SEVERAL HOURS LATER. PT CONTINUES TO DRIVE AND INSISTS ON CONTINUING. Adequate nutrition/fluids: Yes Bowel/Bladder dysfunction: No Assistive Devices: with walker ADL: independent O: PHYSICALEXAM: I reviewed the most recent facilities vitals. General: alert, no distress, well nourished and well developed Head: Normocephalic, No masses, lesions, tenderness or abnormalities Eye Exam: Conjunctiva are pink and non-injected, sclera clear Ears: External ears normal Nose: no mucosal erythema, no mucosal edema, no purulent discharge Oropharynx: no exudate, no erythema, lips, buccal mucosa, and tongue normal and mucous membranes are moist Neck: supple, no adenopathy, non-tender, neck veins flat, trachea midline Lymph: no palpable lymphadenopathy Heart: regular rate & rhythm, no murmurs and no gallops Lungs: normal respiratory rate and rhythm, no chest wall tenderness, lungs clear to auscultation Pulses: radial=2/4, posterior tibial=2/4 Abdomen: abdomen soft, non-tender, normal bowel sounds and no masses or organomegaly Extremities: no joint deformities, effusion, or inflammation, no edema, no clubbing, no cyanosis Neuro Exam: alert & oriented x 3 with fluent speech, no focal motor/sensory deficits Skin: skin color, texture, turgor are normal, no rashes or significant lesions Musculoskeletal: moves all extremities with good strength A: Bacterial pneumonia (Primary) - HOME HEALTH REFERRAL OP Acute UTI - HOME HEALTH REFERRAL OP Hypertensive heart and kidney disease with chronic diastolic congestive heart failure and stage 3b chronic kidney disease (HCC) Stable no active CHF Continue Torsemide and Toprol XL as directed Atherosclerosis of [place] coronary artery of [place] heart without angina pectoris Gastroesophageal reflux disease with esophagitis without hemorrhage Continue tProtonix as directed Chronic atrial fibrillation (HCC) Stable rate Continue Eliquis Major depressive disorder with single episode, in partial remission (HCC) Stable mood and mentation Continue Trazodone Buspar and Gabapentin as directed Acquired hypothyroidism Therapeutic Continue Levoxyl 100mcg daily Cognitive deficits Pt showing signs of cognitive deficits but scored 15/15 on BIMS in SNF. Short term (15 to 20minute)seems intact but has issues with recalling events after a couple hours. Pt continues to drive and insists on continuing. Will have this addressed by PCP. P: 1. Discharge to home 2. Home Health was consulted for nursing, PT, and OT. [facility] 3. Copy of chart sent to Dr Soto 4. Patient to follow up with Dr Bland within 7 days. 5. Lead Java [id number] Developer: note sent 6. I spent 45 minutes on discharge. 7. Usp Home Treatment Given: as above documented in this encounter Plan of Treatment Upcoming Encounters Date Type Department Care Team (Late st Contact Info) Description 11/27/2023 9:30 AM EDT Scheduled Telephone [facility] [address] [facility] [place] [address] Marla Liang, [address] [place] [address] 04/04/2024 2:40 PM EST Office Visit Nephrology, [place] [address] [facility] [place] [address] Tirso Shah MD [address] [facility] [place] [address] 06/30/2024 10:00 AM EDT Office Visit Family Medicine [address] [place] [id number] Gilbert Calloway MD [address] [place] [address] [place] [id number] Scheduled Referrals Name Type Priority Associated Diagnoses Orde r Schedule HOME HEALTH REFERRAL OP Referral Within 10 days (routine) Bacterial pneumonia Acute UTI Ordered: 11/22/2023 Health Maintenance Due Date Last Done Comments DTap/Tdap Vaccines (1 - Tdap) 11/15/1957 Adult Wellness Visit 2002 Depression Monitoring 09/29/2020 09/30/2019 Albumin/Creatinine Ratio 07/28/2023 023, 06/09/2020, 03/13/2019, Additional history exists COVID-19 Vaccine (2023- season) 2023 01/04/2021, 04/19/2020, 04/04/2020, Additional history exists Influenza Vaccine (FLU shot) (#1) 2023 01/10/2022, 11/18/2020, 12/06/2019, Additional history exists CKD HGB USE SMARTSET 55877 11/15/202411/15, 11/16/2023, 03/06/2023, Additional history exists CKD PHOS USE SMARTSET 52082 11/15/202410/21, 10/04/2022, 06/08/2021, Additional history exists TSH [...] 3b chronic kidney disease (HCC) Atherosclerosis of [place] coronary artery of [place] heart without angina pectoris Gastroesophageal reflux disease with esophagitis without hemorrhage Chronic atrial fibrillation (HCC) Atrial fibrillation Major depressive disorder with single episode, in partial remission (HCC) Acquired hypothyroidism Unspecified hypothyroidism Cognitive deficits Unspecified persistent mental disorders due to conditions classified elsewhere documented in this encounter Care Teams Cover Making Machine Operator Relationship Specialty Start Date End Date Gilbert Calloway MD [address] [place] [address] [place] [id number] PCP - General Family Medicine 07/30/23 documented as of this encounter
--- OUTSIDE RECORDS SUMMARY | 2023-12-14 10:52 | External Medical Summary ---
Author Name Unknown Address Unknown Organization [id number] [address] [place] [id number] Laboratory Report Ordering Provider Test Date Status DELMY MCKEON 11/16/2023 05:30:00 Final Observation Date Value Abnormality Reference (Units ) Status SYNC LEUKOCYTES IN BLOOD BY AUTOMATED COUNT 11/16/2023 05:30:00 4.32 4.00-10.80 (K/uL) Final Segs 11/16/2023 05:30:00 27.4 Below low normal 40.0-75.0 (%) Final Lymphs % 11/16/2023 05:30:00 54.6 Above high normal 18.0-42.0 (%) Final Monos 11/16/2023 05:30:00 13.9 Above high normal 1.0-11.0 (%) Final Eosinophils 11/16/2023 05:30:00 3.9 0.0-6.0 (%) Final Basos 11/16/2023 05:30:00 0.2 0.0-2.0 (%) Final Absolute Segs 11/16/2023 05:30:00 1.18 Below low normal 1.80-7.70 (K/uL) Final Lymphs, absolute 11/16/2023 05:30:00 2.36 1.00-4.80 (K/ul) Final Monos, Abs 11/16/2023 05:30:00 0.60 0.00-1.10 (K/uL) Final Eos, Abs 11/16/2023 05:30:00 0.17 0.00-0.70 (K/uL) Final Basos, Abs 11/16/2023 05:30:00 0.01 0.00-0.20 (K/uL) Final Performing Location [facility] [place] [id number]
--- OUTSIDE RECORDS SUMMARY | 2023-12-14 10:52 | External Medical Summary | Summary of Care ---
Author Name Unknown Organization [facility] Address [address] [place] [address] Phone [phone] Care Team Providers Care Medical Detail Representative Name Role Phone Gilbert Calloway MD Primary Care Provide r Encounter Details Date Type Department Care Team (Late st Contact Info) Description 11/22/2023 Orders Only [facility] [address] [place] [address] Vero Ken PA-C [address] [place] [address] Gastric ulcer without hemorrhage or perforation, unspecified chronicity; Gastroesophageal reflux disease with esophagitis without hemorrhage; Viral URI with cough; Nausea; Chronic diarrhea; ANXIETY STATE NOS; DDD (degenerative disc disease), lumbar; Dyslipidemia, goal LDL below 100; Persistent insomnia Allergies Active Allergy Reactions Criticality Noted [...] at bedtime. 90 Tablet 1 11/22/2023 Active Benzonatate 100 MG Oral Capsule [...] Chronic atrial fibrillation 03/01/2021 Overview: new onset, [facility] on apixaban Last Assessment [...] ulcer 06/30/2014 06/26/2017 Overview: hgb 7.4 admitted [facility] CKD (chronic kidney disease) [...] AM EDT Scheduled Telephone [facility] [place] [address] [place] [address] Garth Marla, [address] [place] [address] 04/04/2024 2:40 PM EST Office Visit Nephrology, [place] Sparks [address] [facility] [place] [address] Tirso Shah MD [address] [facility] [place] [address] 06/30/2024 10:00 AM EDT Office Visit Family Medicine [address] [phone] Gilbert Calloway MD [address] [place] [address] [place] [address] Health Maintenance Due Date Last Done Comments DTap/Tdap Vaccines (1 - Tdap) 11/15/1957 Adult Wellness Visit 2002 Depression Monitoring 09/29/2020 09/30/2019 Albumin/Creatinine Ratio 07/28/2023 023, 06/09/2020, 03/13/2019, Additional history exists COVID-19 Vaccine ( season) 2023 01/04/2021, 04/19/2020, 04/04/2020, Additional history exists Influenza Vaccine (FLU shot) (#1) 2023 01/10/2022, 11/18/2020, 12/06/2019, Additional history exists CKD HGB USE SMARTSET 49920 11/15/202411/15, 11/16/2023, 03/06/2023, Additional history exists CKD PHOS USE SMARTSET 66957 11/15/2024 09/2 08/2023, 10/04/2022, 06/08/2021, Additional history [...] Gastroesophageal reflux disease with esophagitis without hemorrhage Viral URI with cough Acute upper respiratory infections of unspecified site Nausea Nausea alone Chronic diarrhea Diarrhea ANXIETY STATE NOS Anxiety state, unspecified DDD (degenerative disc disease), lumbar Degeneration of lumbar or lumbosacral intervertebral disc Dyslipidemia, goal LDL below 100 Other and unspecified hyperlipidemia Persistent insomnia Persistent disorder of initiating or maintaining sleep documented in this encounter Care Teams Medical Detail Representative Relationship Specialty Start Date End Date Gilbert Calloway MD [address] [place] [address] [place] [address] PCP - General Family Medicine 07/30/23 documented as of this encounter
--- OUTSIDE RECORDS SUMMARY | 2023-12-14 10:52 | External Medical Summary ---
Author Name Unknown Address Unknown Organization K01:[facility] [address] [place] [address] Laboratory Report Ordering Provider Test Date Status DELMY MCKEON 11/16/2023 05:30:00 Final Observation Date Value Abnormality Reference (Units ) Status Phosphate 11/16/2023 05:30:00 4.0 2.5-4.8 (m g/dL) Final Performing Location [facility] - [address] [place] [address]
--- OUTSIDE RECORDS SUMMARY | 2023-12-14 10:52 | External Medical Summary | Summary of Care ---
Author Name Unknown Organization [facility] Address [address] [place] [address] Phone [phone] Care Team Providers Care Water Plant Operator Name Role Phone Gilbert Calloway MD Primary Care Provide r Reason for Visit * Reason Onset Date Comments [facility]: Maintenance 11/21/2023 Encounter Details Date Type Department Care Team (Late st Contact Info) Description 11/21/2023 1:00 PM EDT Scheduled Telephone [facility] [address] [facility] [place] [address] Marla Liang, [address] [place] [facility] [place] [address] Allergies Active Allergy Reactions Criticality Noted Date Comments Ergotamine 03/01/2000 vomit Nitroglycerin 03/14/2007 vomitting documented as of this encounter (statuses as of 11/21/2023) Medications Medication Sig Dispensed Refills Start Date [...] as of this encounter (statuses as of 11/21/2023) Active Problems Problem Noted Date Diagnosed Date 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[place] co ronary artery of [place] heart without angina pectoris Last Assessment & Plan: Stable no angina -continue rosuvastatin, metopropolol, Primary hypertension Gastroesophageal reflux dise ase with esophagitis without hemorrhage Last Assessment & Plan: symptoms controlled on pantoprazole Scoliosis of lumbar spine Mixed incontinence urge and stress (male)(female ) documented as of this encounter (statuses as of 11/21/2023) Resolved Problems Problem Noted Date Diagnosed Date [...] as of this encounter (statuses as of 11/21/2023) Immunizations Name Administration Dates Next Due COVID-19 [...] Telephone Encounter - Marla Liang CM - 11/21/2023 3:09 PM EDT Call placed to [facility]. Confirmed that patient is still at facility. No dc plans at thistime. CW will f/u in one week for dc planning Marla Liang Livestock Sales Representative ising at Home [email or web address] documented in this encounter Plan of Treatment Upcoming Encounters Date Type Department Care Team (Late st Contact Info) Description 11/27/2023 9:30 AM EDT Scheduled Telephone [facility] [address] [facility] [place] [address] Marla Liang CM [address] [facility] [place] [address] 04/04/2024 2:40 PM EST Office Visit Nephjacuqelin, Caroline Sparks [address] [place] [address] Tirso Shah MD [address] [place] [address] 06/30/2024 10:00 AM EDT Office Visit Family Medicine [address] [place] [phone] Gilbert Calloway MD [address] [place] [address] [place] [address] Health Maintenance Due Date Last Done Comments DTap/Tdap Vaccines (1 - Tdap) 11/15/1957 Adult Wellness Visit 2002 Depression Monitoring 09/29/2020 09/30/2019 Albumin/Creatinine Ratio 07/28/2023 023, 06/09/2020, 03/13/2019, Additional history exists COVID-19 Vaccine ( season) 2023 01/04/2021, 04/19/2020, 04/04/2020, Additional history exists Influenza Vaccine (FLU shot) (#1) 2023 01/10/2022, 11/18/2020, 12/06/2019, Additional history exists CKD HGB USE SMARTSET 04439 11/15/202411/15, 11/16/2023, 03/06/2023, Additional history exists CKD PHOS USE SMARTSET 91275 11/15/20242 08/2023, 10/04/2022, 06/08/2021, Additional history exists [...] as of this encounter Care Teams Water Plant Operator Relationship Specialty Start Date End Date Gilbert Calloway MD [address] [place] [address] [place] [phone] PCP - General Family Medicine 07/30/23 documented as of this encounter
--- OUTSIDE RECORDS SUMMARY | 2023-12-14 10:52 | External Medical Summary | Summary of Care ---
Author Name Unknown Organization [facility] Address [address] [place] [address] Phone [phone] Care Team Providers Care Control Valve Technician Name Role Phone Gilbert Calloway MD Primary Care Provide r Reason for Visit * Reason Onset Date Comments Skilled Visit 11/16/2023 Encounter Details Date Type Department Care Team (Latest Contact Info) Description 11/16/2023 6:30 AM EDT Intermediate Visit [facility] [address] [place] [address] Vero Ken PA-C [address] [place] [address] Bacterial pneumonia*; Acute UTI (urinary tract infection); [...] atrial fibrillation 03/01/2021 Overview: new onset, [facility] on apixaban Last Assessment & Plan: [...] 06/30/2014 06/26/2017 Overview: hgb 7.4 admitted [facility] CKD (chronic kidney disease) stage 3, [...] Progress Notes * Vero Ken PA-C - 11/16/2023 3:08 PM EDT Name: Zoya Howard Date of :1938 TRANSITION EVENT: Type: Skilled visit Date: November 15 Code Status: Full Code This note pertains to care provided at [facility]. Please see facility medical record for original note. This note is not to be edited or addended in [employer]. Editing or addending needs to occur in the facilities medical record. Subjective: Zoya Howard is a 85 year old female. Patient being seen for skilled visit Chief Complaint Patient presents with Skilled Visit HPI: pt here for rehabilitation following hosptial admission for pneumonia and UTI. Completed antibiotics. Pt is having no signficant pain issues today. She is afebrile. Vital signs stable. Ambulating well with Therapy. She is anxious to return back to her apartment. BMs and v oiding ok. Eating, drinking and sleeping ok. CBC Results: Results for orders placed or [...] [facility] - [facility] 140 09/06/2018 03:16 PM Patient Active Problem List Diagnosis Hip joint replacement status GENERAL OSTEOARTHROSIS Atherosclerosis of [place] coronary artery of [place] heart without angina pectoris ADVANCE DIRECTIVE INFORMATION Primary hypertension Low back pain radiating to left leg Persistent insomnia Gastroesophageal reflux disease with esophagitis without hemorrhage Acquired hypothyroidism Scoliosis of lumbar spine Bilateral shoulder region arthritis DDD (degenerative disc disease), lumbar Mixed incontinence urge and stress (male)(female) Aortic ectasia, thoracic ([facility]) Other idiopathic scoliosis, thoracolumbar region History of gastric ulcer Greater trochanteric bursitis of right hip Chronic atrial fibrillation ([facility]) 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 3b chronic kidney disease ([facility]) Spondylosis of lumbar region without myelopathy or radiculopathy Mild aortic stenosis Hypercalcemia (HFpEF) heart failure with preserved ejection fraction ([facility]) Hiatal hernia Major depressive disorder with single episode, in partial remission ([facility]) Anxiety state Full code status Past Medical History: Diagnosis Date (HFpEF) heart failure with preserved ejection fraction ([facility]) 12/07/2022 Acute on chronic combined systolic and diastolic CHF (congestive heart failure) ([facility]) 03/28/2021 admitted [facility] Anxiety state Anxiety State Aortic valve stenosis, mild 03/01/2021 Aortocoronary bypass status Atherosclerosis of [place] coronary artery of [place] heart without angina pectoris Atrial fibrillation ([facility]) 12/09/2020 during admission [place] Benign hypertension with CKD (chronic kidney disease) stage III ([facility]) Cataract cortical, senile Chronic atrial fibrillation ([facility]) 03/01/2021 new onset, [facility] on apixaban CKD (chronic kidney disease) stage 3, GFR 30-59 ml/min ([facility]) 07/03/2013 GFR 36.9 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 11/01/2020 Coronary atherosclerosis CAD Cystitis 09/16/2018 >100,000 enterococcus pansensitive Cystitis 08/03/2020 10-100,000 E coli pansensitive Depressive disorder, not elsewhere classified Depression Gastric ulcer 06/30/2014 hgb 7.4 admitted [facility] Herpes zoster without complication 11/18/2020 right hip Hiatal hernia 12/07/2022 moderate Hypercalcemia 12/07/2022 Ca 11.6 Hypertension goal BP (blood pressure) < 140/90 Macular hole of left eye Major depression, single episode MEDICATION USE AGREEMENT 03/19/2012 Tylenol with codeine--Reena Meningioma, cerebral ([facility]) 07/16/2022 small frontal cortex meningioma without mass effect Meningioma, cerebral ([facility]) 08/02/2022 Adding D32.0-Meningioma, cerebral (HCC) Dx to History Migraines history of migraines--stopped 1998 Mixed incontinence urge and stress (male)(female) Moderate mitral regurgitation 03/01/[address] Ndiaye Other and unspecified noninfectious gastroenteritis and colitis(558.9) 06/24/2013 admitted [facility] Other forms of retinal detachment(361.89) Pneumonia 01/29/2023 admitted [facility] with pneumonia, sepsis, CHF Pneumonia due to COVID-19 virus 12/09/2020 [place], transferred to [facility] Postoperative anemia due to acute blood loss 03/11/2018 hgb 7, given 2 units PRBC hgb 9 on discharge Reflux esophagitis Scoliosis of lumbar spine Syncope and collapse 03/11/2018 hit head, admitted to [facility] Trochanteric bursitis of right hip 10/24/2020 Past Surgical History: Procedure Laterality Date ABDOMEN SURGERY PROCEDURE NEC liposuction CABG, ARTERIAL, TWO 02/[address] HEAD/BRAIN W/O CONTRAST MATERIAL 07/16/2022 chronic cerebellar infarct COLONOSCOPY, DIAGNOSTIC (RECTUM) 08/01/2016 normal /[facility] COLORECTAL CANCER SCREEN;W/FLE 08/2000 CT ABD/PELVIS W IV AND W ORAL CONTRAST N/A 10/05/2020 bilateral hip replacements, DJD of back, otherwise unremarkable. CTA HEAD W CONTRAST 07/14/2022 normal CTA NECK W CONTRAST 07/16/2022 no acute findings EGD, FLEXIBLE, DIAGNOSTIC 07/02/2014 esophagitis chronic gastritis with ulcers/inpt [facility] EGD, FLEXIBLE, DIAGNOSTIC 11/11/2014 reflux esophagitis/[facility] EGD, FLEXIBLE, DIAGNOSTIC 08/01/2016 gastritis, normal bx/[facility] INFORMATION repair retinal tear LASERING OF [...] Not on file Social History Narrative Zoya Kate Lee Boles Social Determinants of Health Financial [...] Allergen Reactions Ergotamine vomit Nitro [Nitroglycerin] vomitting I have reviewed medications and allergies. Please refer to MAR in the facility's medical record forthe most up-to-date medication list as this cannot be edited in [employer]. Review of Systems: Constitutional ROS: No change in weight,less weakness, less fatigue and No fevers, sweats, or chills Nose ROS: No nasal stuffiness and No [...] in appetite, No nausea, vomiting, diarrhea, or constipation and No dysphagia Skin/Integumentary ROS: No rash and No itching Neurologic ROS: No headaches and No seizures Psychiatric ROS: No depression, No anxiety and No psychosis Sleep: No sleep disorders OBJECTIVE: PHYSICALEXAM: I reviewed the most recent facilities vitals. General: alert, no distress, well nourished and well developed Eye Exam: Conjunctiva are pink and non-injected, sclera clear Nose: no mucosal erythema, no mucosal edema, no purulent discharge Oropharynx: no exudate, no erythema, lips, buccal mucosa, and tongue normal and mucous membranes are moist Neck: supple, no adenopathy, non-tender, neck veins flat, trachea midline Heart: regular rate & rhythm, no murmurs and no gallops Lungs: normal respiratory rate and rhythm, no chest wall tenderness, lungs clear to auscultation Abdomen: abdomen soft, non-tender, normal bowel sounds and no masses or organomegaly Extremities: , no edema, no clubbing, no cyanosis Neuro Exam: alert with fluent speech, no focal motor/sensory deficits Skin: skin color, texture, turgor are normal, no rashes or significant lesions ASSESSMENT: Bacterial pneumonia (Primary) Clinically improved Completed antibiotics Will follow Acute UTI (urinary tract infection) No signs or symptoms of UTI at this time Completed antibiotics Will follow Hypertensive heart and kidney disease with chronic diastolic congestive heart failure and stage 3b chronic kidney disease (HCC) Stable no active CHF Stable CKD Continue Metoprolol and Torsemide as directed PLAN: Reviewd CBC, BMP and Lytes and Continue present medication(s):as ordered. [facility] Treatment Given: as above Electronically signed by: Vero Ken PA-C Over 35 minutes were spent in this visit more than half the time was spent counselling or coordinating care. documented in this encounter Plan of Treatment Upcoming Encounters Date Type Department Care Team (Late st Contact Info) Description 04/04/2024 2:40 PM EST Office Visit Nephrology, [facility] [address] [facility] [place] [address] Tirso Shah MD 200 [facility] [place] [address] 06/30/2024 10:00 AM EDT Office Visit Family Medicine [address] [place] [phone] Gilbert Calloway MD [address] [place] [address] [place] [address] Health Maintenance Due Date Last Done Comments DTap/Tdap Vaccines (1 - Tdap) 11/15/1957 Adult Wellness Visit 2002 Depression Monitoring 09/29/2020 09/30/2019 Albumin/Creatinine Ratio 07/28/2023 023, 06/09/2020, 03/13/2019, Additional history exists TSH 07/28/2023 07/27/2022, 05/21, 06/09/2020, Additional history exists COVID-19 Vaccine ( season) 2023 01/04/2021, 04/19/2020, 04/04/2020, Additional history exists Influenza Vaccine (FLU shot) (#1) 2023 01/10/2022, 11/18/2020, 12/06/2019, Additional history exists CKD HGB USE SMARTSET 67547 11/15/202411/15, 11/16/2023, 03/06/2023, Additional history exists CKD PHOS USE SMARTSET 67527 11/15/202410/21, 10/04/2022, 06/08/2021, Additional history exists Pneumococcal Vaccine: 65+ [...] (HCC) documented in this encounter Care Teams Control Valve Technician Relationship Specialty Start Date End Date Gilbert Calloway MD [address] [place] [address] [place] [address] PCP - General Family Medicine 07/30/23 documented as of this encounter
--- OUTSIDE RECORDS SUMMARY | 2023-12-14 10:52 | External Medical Summary | Continuity Of Care Document ---
Author Name Unknown Address [address] [place] [address] Organization [facility] ( ) Care Team Providers Care Home Care Music Therapist Name Role Phone Delmer Valles Primary Care Provider [phone] Problems Code Description Start Date End Date Status R06.02 Shortness of breath 2023 Activ e N39.0 Urinary tract infection, site not specified Active I50.32 Chronic diastolic (congestive) heart failure Active R79.89 Other specified abno rmal findings of blood chemistry 2023 Active E03.9 Hypothyroidism, unspecified 2023 Active I25.10 Atherosclerotic hear t disease of [place] coronary artery without angina pectoris 2023 Active [...] weight Temperature SpO2 Blood Sugar Pulse Respirations 35090 925 34526 7 59 [place] [address] 925 18206 2 [place]00 [place] [address] 925 57709 5 101.00 mm[Hg] - Sitting 159.00 mm[Hg] - Sitting 96.90 Oral 78.00/ min 18.00/min 66170 925 78121 4 101.00 mm[Hg] - Sitting 159.00 mm[Hg] - Sitting 59 NI 154.00 NI 96.90 Ear 97.00 % 75.00/ min 18.00/min 97353 925 58175 3 75.00/ min 18.00/min 72425 925 62897 3 75.00/ min 44899 926 14002 9 03508 926 21636 5 94066 926 94642 9 67173 926 84352 9 [place] [address] 926 41656 3 101.00 mm[Hg] - Sitting 159.00 mm[Hg] - Sitting 96.90 Ear 75.00/ min 18.00/min 88159 926 31541 8 63.00 mm[Hg] - Sitting 118.00 mm[Hg] - Sitting 98.40 Ear 96.00 % 75.00/ min 20.00/min 94770 927 15916 0 73.00 mm[Hg] - Sitting 109.00 mm[Hg] - Sitting 98.40 Ear 93.00 % 74.00/ min 18.00/min 72523 927 28673 2 156.00 NI [address]231 927 63737 7 31775 927 42004 6 98.10 Oral 01618 928 75446 5 88196 928 03450 7 27201 928 27849 1 29815 928 37755 7 68.00 mm[Hg] - Sitting 118.00 mm[Hg] - Sitting 98.20 Oral 95.00 % 72.00/ min 18.00/min 83876 929 75653 0 66.00 mm[Hg] - Sitting 113.00 mm[Hg] - Sitting 98.70 Oral 94.00 % 72.00/ min 18.00/min 86954 930 30352 4 90.00 mm[Hg] - Sitting 170.00 mm[Hg] - Sitting 97.20 Ear 94.00 % 84.00/ min 22.00/min 94915 001 36445 3 95.00 mm[Hg] - Sitting 152.00 mm[Hg] - Sitting 98.00 Oral 94.00 % 92.00/ min 20.00/min 65392 001 19096 1 95.00 mm[Hg] - Sitting 152.00 mm[Hg] - Sitting 156.00 NI 98.00 Ear 92.00/ min 71543 002 43089 3 73.00 mm[Hg] - Sitting 121.00 mm[Hg] - Sitting 98.40 Oral 93.00 % 98.00/ min 16.00/min 25288 002 80124 3 17246 003 65691 1 89.00 mm[Hg] - Sitting 160.00 mm[Hg] - Sitting 97.60 Oral 98.00 % 87.00/ min 16.00/min 05923 003 62476 8 157.00 NI Immunizations Vaccine Date Status COVID-19 03/14/2020 Completed COVID-19 04/04/2020 Completed Influenza 12/06/2019 Completed Influenza 11/01/2020 Admitted After F van Season (PCV13)Pneumococcal 08/26/2014 Completed (PPSV23)Pneumococcal 10/26/2005 Completed Shingles 12/04/2019 Completed
--- OUTSIDE RECORDS SUMMARY | 2023-12-14 10:52 | External Medical Summary ---
Author Name Unknown Address Unknown Organization [facility] [address] [place] [address] Laboratory Report Ordering Provider Test Date Status DELMY MCKEON 11/16/2023 05:30:00 Final Observation Date Value Abnormality Reference (Units ) Status WBC, Total 11/16/2023 05:30:00 4.32 4.00-10.8 0 (K/uL) Final RBC 11/16/2023 05:30:00 3.39 3.85-5.15 (M/uL) Final Hemoglobin 11/16/2023 05:30:00 9.8 Below low normal 12 .0-15.3 (g/dL) Final HCT 11/16/2023 05:30:00 30.8 Below low normal 36. 0-45.2 (%) Final MCV 11/16/2023 05:30:00 90.9 81.5-97.5 (fL) Final MCH 11/16/2023 05:30:00 28.9 27.0-34.0 (pg) Final MCHC 11/16/2023 05:30:00 31.8 32.0-36.0 (g/dL) Final RDW 11/16/2023 05:30:00 14.4 11.5-15.5 (%) Final Platelets 11/16/2023 05:30:00 172 140-400 (K /uL) Final MPV 11/16/2023 05:30:00 10.8 6.6-11.1 ( fL) Final Performing Location [facility] [place] [address] [place] [address]
--- OUTSIDE RECORDS SUMMARY | 2023-12-14 10:52 | External Medical Summary | Continuity Of Care Document ---
Author Name Unknown Address [address] [place] [address] Organization [facility] ( ) Care Team Providers Care Ankle Patch Molder Name Role Phone Delmer Valles Primary Care Provider [phone] Problems Code Description Start Date End Date Status R06.02 Shortness of breath 2023 Activ e N39.0 Urinary tract infection, site not specified Active I50.32 Chronic diastolic (congestive) heart failure Active R79.89 Other specified abno rmal findings of blood chemistry 2023 Active E03.9 Hypothyroidism, unspecified 2023 Active I25.10 Atherosclerotic hear t disease of [place] coronary artery without angina pectoris 2023 Active [...] re flux disease without esophagitis 2023 Active VITAL SIGNS Date Time Diastolic blood pressure Systolic blood pressure Body height Body weight Temperature SpO2 Blood Sugar Pulse Respirations 76948 925 43072 7 59 [place] [address] 925 63468 2 154.00 [place] [address] 925 54977 5 101.00 mm[Hg] - Sitting 159.00 mm[Hg] - Sitting 96.90 Oral 78.00/ min 18.00/min 30977 925 06055 4 101.00 mm[Hg] - Sitting 159.00 mm[Hg] - Sitting 59 NI 154.00 NI 96.90 Ear 97.00 % 75.00/ min 18.00/min 88643 925 65681 3 75.00/ min 18.00/min 23976 925 19155 3 75.00/ min 82294 926 45651 9 68644 926 19884 5 23702 926 01920 9 55245 926 79494 9 [place]80 [place] [address] 926 12082 3 101.00 mm[Hg] - Sitting 159.00 mm[Hg] - Sitting 96.90 Ear 75.00/ min 18.00/min 50311 926 37502 8 63.00 mm[Hg] - Sitting 118.00 mm[Hg] - Sitting 98.40 Ear 96.00 % 75.00/ min 20.00/min 33438 927 90222 0 73.00 mm[Hg] - Sitting 109.00 mm[Hg] - Sitting 98.40 Ear 93.00 % 74.00/ min 18.00/min 73513 927 48162 2 156.00 [place] [address] 927 58559 7 79544 927 58665 6 98.10 Oral 56252 928 43952 5 67362 928 61381 7 76980 928 63063 1 87854 928 78741 7 68.00 mm[Hg] - Sitting 118.00 mm[Hg] - Sitting 98.20 Oral 95.00 % 72.00/ min 18.00/min 62970 929 43768 0 66.00 mm[Hg] - Sitting 113.00 mm[Hg] - Sitting 98.70 Oral 94.00 % 72.00/ min 18.00/min Immunizations Vaccine Date Status COVID-19 03/14/2020 Completed COVID-19 04/04/2020 Completed Influenza 12/06/2019 Completed Influenza 11/01/2020 Admitted After F van Season (PCV13)Pneumococcal 08/26/2014 Completed (PPSV23)Pneumococcal 10/26/2005 Completed Shingles 12/04/2019 Completed
--- OUTSIDE RECORDS SUMMARY | 2023-12-14 10:52 | External Medical Summary ---
Author Name Unknown Address Unknown Organization [id number]:[facility] [place] - [address] [place] [address] Laboratory Report Ordering Provider Test Date Status DELMY MCKEON 11/16/2023 05:30:00 Final Observation Date Value Abnormality Reference (Units ) Status TSH 11/16/2023 05:30:00 0.52 0.27-4.20 (uIU/mL) Final Performing Location [facility] [address] [facility] [id number]
--- OUTSIDE RECORDS SUMMARY | 2023-12-14 10:53 | External Medical Summary | Summary of Care ---
Author Name Unknown Organization [facility] Address [address] [place] [address] Phone [phone] Care Team Providers Care Sod Cutter Name Role Phone Gilbert Calloway MD Primary Care Provide r Reason for Visit * Reason Onset Date Comments Custodial Visit - Admission 2023 Encounter Details Date Type Department Care Team (Latest Contact Info) Description 2023 10:30 AM EDT [address] [place] [address] Delmer Valles MD [address] [place] [address] [place] [phone] Pneumonia due to infectious organism, unspecified laterality, unspecified part of lung*; Acute cystitis without hematuria; Hypertensive heart and kidney disease with chronic diastolic congestive heart failure and stage 3b chronic kidney disease (HCC); Chronic atrial fibrillation ([facility]); Chronic heart failure with preserved ejection fraction (HCC); Major depressive disorder with single episode, in partial remission ([facility]); Persistent insomnia; Anxiety state; Atherosclerosis of ambler coronary artery of ambler heart without angina pectoris; Gastroesophageal reflux disease with esophagitis without hemorrhage; Acquired hypothyroidism; Spondylosis of lumbar region without myelopathy or radiculopathy; Mild aortic stenosis Allergies Active Allergy Reactions Criticality Noted Date Comments Ergotamine 03/01/2000 vomit Nitroglycerin 03/14/2007 vomitting documented as of this encounter (statuses as of 2023) Medications Medication Sig Dispensed Refills Start Date End Date Status Benzonatate 100 MG Oral Capsule (Tescarlie Brand)Indications: Viral URI with cough Take 1 Capsule by mouth 3 times a day as needed for Cough. 30 Capsule 1 3 Active Acetaminophen 500 MG Oral Tablet (Tylenol)Indication s:Generalized osteoarthritis Take 1 Tablet by mouth in the morning and 1 Tablet at noon and 1 Tablet before bedtime. 100 Tablet 4 Active Gabapentin 300 MG Oral Capsule [...] TWICE DAILY 180 Tablet 3 4 Active traZODone HCl 150 MG Oral [...] AT BEDTIME 90 Tablet 2 4 Active Metoprolol Succinate ER 25 MG Oral Tablet Extended Release 24 Hour (toPROL XL) Take 1.5 Tablets by mouth in the morning. In the morning.. 4 Active Advanced Probiotic Oral Capsule Take 1 Capsule by mouth in the morning. 4 Active Metoprolol Succinate ER 50 MG Oral Tablet Extended Release 24 Hour (toPROL XL) TAKE ONE TABLET BY MOUTH IN THE MORNING 90 Tablet 1 4 11/14/19 24 Discontinued Losartan Potassium 25 MG Oral Tablet (Cozaar)Indications :Hypertensive heart and kidney disease with chronic diastolic congestive heart failure and stage 3b chronic kidney disease (HCC) TAKE ONE TABLET BY MOUTH IN THE MORNING 90 Tablet 1 4 11/14/19 24 Discontinued hydrOXYzine HCl 10 MG Oral Tablet (Atarax) TAKE ONE TABLET BY MOUTH EVERY 8 HOURS NEEDED FOR ANXIETY 30 Tablet 1 4 11/14/19 24 Discontinued documented as of this encounter (statuses as of 2023) Active Problems Problem Noted Date Diagnosed Date Anxiety state 2023 Major depressive disorder wi [...] as of this encounter (statuses as of 2023) Resolved Problems Problem Noted Date Diagnosed Date [...] as of this encounter (statuses as of 2023) Immunizations Name Administration Dates Next Due COVID-19 [...] as of this encounter Progress Notes * Delmer Valles MD - 2023 3:23 PM EDT ADMISSION HISTORY and PHYSICAL TRANSITION EVENT: Type: SNF admission Date: November 13 Code Status: Full Code Name: Zoya Howard Date of : 1938 This note pertains to care provided at [facility]. Please see facility medical record for original note. This note is not to be edited or addended in [employer]. Editing or addending needs to occur in the facilities medical record. S: Zoya Howard had been admitted to [facility] from [facility] (previously at [facility])for PT and OT. Recently admitted to [facility] on 11/03/23-11/09/23 and then to [facility] for PT/OT because of pneumonia and UTI and was transferred here and admitted on 2023. Patient recently established with Dr. Calloway and known to [facility] from prior admissions with PMH of hypertension with stage 3b CKD, depression, anxiety, chronic back and hip pain previously on chronic narcotics, insomnia, aortic stenosis, GERD, h/o gastric ulcer, OA, CAD s/p CABG, chronic diastolic CHF, and hiatal hernia who was transferred today from [facility] for ongoing PT/OT. Patient resides in an independent apartment at [facility]. [facility] records are not available other than [...] instead of going home after being at [facility]. Appears she wasfelt to need more PT/OT before returning home to her apartment. At [facility], she was started on Ambien last night [...] was also started on ferrous sulfate at [facility] but had not been taking it prior [...] follow with cardiology. Denies increased leg swelling. Past Medical History: Patient Active Problem List Diagnosis Hip joint replacement status GENERAL OSTEOARTHROSIS Atherosclerosis of ambler coronary artery of ambler heart without angina pectoris ADVANCE DIRECTIVE INFORMATION [...] with single episode, in partial remission (HCC) Anxiety state Current Outpatient Medications Medication Sig Dispense Refill Metoprolol Succinate ER 25 MG Oral Tablet Extended Release 24 Hour (toPROL XL) Take 1.5 Tablets by mouth in the morning. In the morning.. Advanced Probiotic Oral Capsule Take 1 Capsule by mouth in the morning. Benzonatate 100 MG Oral Capsule (Tessalon Perles) [...] ONE TABLET AT BEDTIME 90 Tablet 2 No current facility-administered medications for this visit. Review of patient's allergies indicates: Allergen Reactions Ergotamine vomit Nitro [Nitroglycerin] vomitting Social History Tobacco Use Smoking status: Never Smokeless tobacco: Never Substance Use Topics Alcohol use: Yes Comment: OCC-- 2oz per week Vaping/E-Cigarette Use Vaping/E-Cigarette Substances Vaping/E-Cigarette Devices Past Surgical History: Procedure Laterality Date ABDOMEN SURGERY PROCEDURE NEC liposuction CABG, ARTERIAL, TWO 02/[address] HEAD/BRAIN W/O CONTRAST MATERIAL 07/16/2022 chronic cerebellar infarct COLONOSCOPY, DIAGNOSTIC (RECTUM) 08/01/2016 normal /[facility] COLORECTAL CANCER SCREEN;W/FLE 08/2000 CT ABD/PELVIS W IV AND W ORAL CONTRAST N/A 10/05/2020 bilateral hip replacements, DJD of back, otherwise unremarkable. CTA HEAD W CONTRAST 07/14/2022 normal CTA NECK W CONTRAST 07/16/2022 no acute findings EGD, FLEXIBLE, DIAGNOSTIC 07/02/2014 esophagitis chronic gastritis with ulcers/inpt [facility] EGD, FLEXIBLE, DIAGNOSTIC 11/11/2014 reflux esophagitis/[facility] EGD, FLEXIBLE, DIAGNOSTIC 08/01/2016 gastritis, normal bx/[facility] INFORMATION repair retinal tear LASERING OF SECONDARY CATARACT bilateral MRI BRAIN W WO CONTRAST 02/2012 No acute findings MRI BRAIN WITH CONTRAST 07/16/2022 senescent changes microangiopathy, small meningioma left frontal cortex MRI L SPINE WO CONTRAST 02/2012 mod advanced spondylitic changes; multilevel disc bulges; multiple areas of foraminal narrowing RECONSTRUCT/REPLACE SHOULDER JOINT Left 07/13/2017 Dr Green RECONSTRUCT/REPLACE SHOULDER JOINT Right 02/28/2018 Snoya with biceps tenodesis REMOVE CATARACT, INSERT LENS [...] Specified) Bro (Not Specified) Sis (Not Specified) Review of Systems: Constitutional ROS: No change in weight, No fevers, sweats, or chills, and +generalized weakness Eye ROS: No recent significant change in vision and No eye pain, redness, discharge Ear ROS: No ear pain, No drainage, No tinnitus or vertigo, and No recent change in hearing Nose ROS: No history of frequent colds or sinusitis, No nasal stuffiness, No history of Hay Fever, and No significant epistaxis Mouth/Throat ROS: No bleeding gums, No thrush, or No sore throat Pulmonary ROS: No cough, sputum, or hemoptysis, No wheezing, No shortness of breath, and No recent change in breathing Cardiovascular ROS: No chest pain, No shortness of breath, No orthopnea, No paroxysmal nocturnal dyspnea, No edema, No palpitations, No syncope, and +PAF on Eliquis Gastrointestinal ROS: No abdominal pain, No change in bowel habits, No significant heartburn, No significant change in appetite, No nausea, vomiting, diarrhea, or constipation, No hematemesis, No blood in stools or black tarry stools, and No abdominal bloating or early satiety Genito-Urinary Female ROS: No dysuria, No frequency, and No incontinence Musculoskeletal/Extremities ROS: +chronic back pain and OA Hematologic/Lymphatic ROS: No coagulation disorder, No abnormal bleeding, No chills, No bruising, No weight loss, and +anemia Skin/Integumentary ROS: No rash and No itching Neurologic ROS: No headaches and No seizures Endocrine ROS: No heat intolerance, No cold intolerance, No excessive thirst or urination, and +hypothyroidism Psychiatric ROS: +depression and anxiety ADL skills: dependent Ambulates with walker OBJECTIVE: PHYSICAL EXAM: I reviewed the most recent facilities vitals. Refer to vital signs flowsheet in senior living chart.General: alert, no distress, well nourished, and well developed Head: Normocephalic, No masses, lesions, tenderness or abnormalities Eye Exam: PERRLA, extraocular movements intact, conjunctiva are pink and non- injected, sclera clear Ears: External ears normal Nose: no mucosal erythema, no mucosal edema, no purulent discharge Oropharynx: no exudate, no erythema, lips, buccal mucosa, and tongue normal, and mucous membranes are moist Neck: supple, no adenopathy, no bruits Heart: regular rate & rhythm, no gallops, and 3/6 holosystolic low pitched harsh murmur aortic area Lungs: chest symmetric with normal AP diameter, no chest deformities noted, no chest wall tenderness, lungs clear to auscultation Abdomen: abdomen soft, non-tender, normal bowel sounds, and no masses or organomegaly Extremities: no edema, no clubbing, no cyanosis Neuro Exam: alert & oriented x 3 with fluent speech, no focal motor/sensory deficits, appears mildly confused regarding recent events, hospital stay and rehab stay ASSESSMENT: Pneumonia due to infectious organism, unspecified laterality, unspecified part of lung (Primary)--has completed antibiotics. Respiratory symptoms resolved. Monitor for cough, SOB, or fever. Acute cystitis without hematuria--completed antibiotics. Denies having any urinary symptoms. Hypertensive heart and kidney disease with chronic diastolic congestive heart failure and stage 3b chronic kidney disease (HCC)--losartan was discontinued at [facility]. Metoprolol succinate was reduced to37.5 mg daily. Chronic atrial fibrillation (HCC)--rate controlled with metoprolol succinate 37.5 mg daily. Continue Eliquis 5 mg twice daily. Follows with cardiology. Chronic heart failure with preserved ejection fraction (HCC)--appears euvolemic. Will discontinue her PRN torsemide and dose if needed for weight gain or edema. Major depressive disorder with single episode, in partial remission ([facility])--continue Trazodone 150 mg at bedtime. Persistent insomnia--continue Trazodone 150 mg at bedtime. Would avoid Ambien and Benzos due to ageand fall risk. Anxiety state--continue buspirone 10 mg twice daily. Hold hydroxyzine due to confusion. Atherosclerosis of ambler coronary artery of ambler heart without angina pectoris--continue beta sha, rosuvastatin 10 mg daily. ARB discontinued at [facility]. Gastroesophageal reflux disease with esophagitis without hemorrhage--continue pantoprazole 40 mg daily. Acquired hypothyroidism--continue levothyroxine 100 mg daily. Check TSH. Spondylosis of lumbar region without myelopathy or radiculopathy--continue gabapentin 300 mg TID and Tylenol PRN. Mild aortic stenosis PLAN: 1. Continue present medication(s): Discontinue medication(s): torsemide PRN and will dose if needed for weight gain or edema. Will D/CAmbien and continue Trazodone 150 mg instead. Hold ferrous sulfate and check CBC with anemia reflex. Schedule labs: CBC w/diff with anemia reflex, TSH, BMP, and phosphorus for CKD, anemia, and hypothyroidism. 2. Admission orders, medications, labs, hospital records and care plan reviewed. 3. Auto Former Machine Operator consult, Physical Therapy, Occupational Therapy, and Speech Therapy ordered. 4. Care plan reviewed. 5. Advance Directives were discussed: Full Code 6. Snf Home Treatment Given: n/a Electronically signed by: Delmer Valles MD I spent a total of 30-39 minutes (exact time 45 mins) on the date of service in preparation, delivery, and documentation of the care provided to Zoya Howard excluding any time spent in the performance of separately billed services or time spent by another provider/QHP. documented in this encounter Plan of Treatment Upcoming Encounters Date Type Department Care Team (Late st Contact Info) Description 04/04/2024 2:40 PM EST Office Visit Nephrology, Caroline Sparks [address] [facility] [place] [address] Tirso Shah MD [address] [facility] [place] [address] 06/30/2024 10:00 AM EDT Office Visit Family Medicine [address] [phone] Gilbert Calloway MD [address] [place] [address] [place] [address] Health Maintenance Due Date Last Done Comments DTap/Tdap Vaccines (1 - Tdap) 11/15/1957 Adult Wellness Visit 2002 Depression Monitoring 09/29/2020 09/30/2019 Albumin/Creatinine Ratio 07/28/2023 023, 06/09/2020, 03/13/2019, Additional history exists TSH 07/28/2023 07/27/2022, 05/21, 06/09/2020, Additional history exists CKD PHOS USE SMARTSET 56037 10/05/202309/19, 06/08/2021, 09/07/2020, Additional history exists COVID-19 Vaccine ( season) 2023 01/04/2021, 04/19/2020, 04/04/2020, Additional history exists Influenza Vaccine (FLU shot) (#1) 2023 01/10/2022, 11/18/2020, 12/06/2019, Additional history exists CKD HGB USE SMARTSET 69960 03/06/202403/06, 03/06/2023, 10/04/2022, Additional history exists Pneumococcal [...] as of this encounter Visit Diagnoses Diagnosis Pneumonia due to infectious organism, unspecified laterality, unspecified part of lung- Primary Acute cystitis without hematuria Acute cystitis Hypertensive heart and kidney disease with chronic diastolic congestive heart failure and stage 3b chronic kidney disease (HCC) Chronic atrial fibrillation (HCC) Atrial fibrillation Chronic heart failure with preserved ejection fraction (HCC) Major depressive disorder with single episode, in partial remission (HCC) Persistent insomnia Persistent disorder of initiating or maintaining sleep Anxiety state Anxiety state, unspecified Atherosclerosis of ambler coronary artery of ambler heart without angina pectoris Gastroesophageal reflux disease with esophagitis without hemorrhage Acquired hypothyroidism Unspecified hypothyroidism Spondylosis of lumbar region without myelopathy or radiculopathy Lumbosacral spondylosis without myelopathy Mild aortic stenosis Aortic valve disorders documented in this encounter Care Teams Sod Cutter Relationship Specialty Start Date End Date Gilbert Calloway MD [address] [place] [address] [place] [address] PCP - General Family Medicine 07/30/23 documented as of this encounter
--- OUTSIDE RECORDS SUMMARY | 2023-12-14 10:53 | External Medical Summary | Continuity Of Care Document ---
Author Name Unknown Address [address] [place] [address] Organization [facility] ( ) Care Team Providers Care Cabinetmaker Maintenance Name Role Phone Reena Markcarlene Primary Care Provider [phone] VITAL SIGNS Date Time Diastolic blood pressure Systolic blood pressure Body height Body weight Temperature SpO2 Blood Sugar Pulse Respirations 69182 925 36309 7 59 NI [address] 925 99837 2 154.00 NI [address]21 925 88729 5 101.00 mm[Hg] - Sitting 159.00 mm[Hg] - Sitting 96.90 Oral 78.00/ min 18.00/min 80436 925 80556 4 101.00 mm[Hg] - Sitting 159.00 mm[Hg] - Sitting 59 NI 154.00 NI 96.90 Ear 97.00 % 75.00/ min 18.00/min 23318 925 04450 3 75.00/ min 18.00/min 86406 925 25841 3 75.00/ min Immunizations Vaccine Date Status COVID-19 03/14/2020 Completed COVID-19 04/04/2020 Completed Influenza 12/06/2019 Completed Influenza 11/01/2020 Admitted After F van Season (PCV13)Pneumococcal 08/26/2014 Completed (PPSV23)Pneumococcal 10/26/2005 Completed Shingles 12/04/2019 Completed
--- OUTSIDE RECORDS SUMMARY | 2023-12-14 10:53 | External Medical Summary | Summary of Care ---
Author Name Unknown Organization [facility] Address [address] [place] [address] Phone [phone] Care Team Providers Care Lining Marker Name Role Phone Glibert Calloway MD Primary Care Provide r Encounter Details Date Type Department Care Team (Late st Contact Info) Description 11/05/2023 Population Health External Data Unspecified Department Allergies Active Allergy Reactions Criticality Noted Date Comments Ergotamine 03/01/2000 vomit Nitroglycerin 03/14/2007 vomitting documented as of this encounter (statuses as of 11/05/2023) Medications Medication Sig Dispensed Refills Start Date [...] TWICE DAILY 180 Tablet 3 08/27/2023 Active Losartan Potassium 25 MG Oral Tablet [...] AT BEDTIME 90 Tablet 2 10/18/2023 Active hydrOXYzine HCl 10 MG Oral Tablet (Atarax) TAKE ONE TABLET BY MOUTH EVERY 8 HOURS NEEDED FOR ANXIETY 30 Tablet 1 10/24/2023 Active documented as of this encounter (statuses as of 11/05/2023) Active Problems Problem Noted Date Diagnosed Date [...] discuss her pain concerns. She is aware [facility] does not manage chronic pain 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paimiut co ronary artery of paimiut heart without angina pectoris Last Assessment & Plan: Stable no angina -continue rosuvastatin, metopropolol, Primary hypertension Gastroesophageal reflux dise ase with esophagitis without hemorrhage Last Assessment & Plan: symptoms controlled on pantoprazole Scoliosis of lumbar spine Mixed incontinence urge and stress (male)(female ) documented as of this encounter (statuses as of 11/05/2023) Resolved Problems Problem Noted Date Diagnosed Date [...] as of this encounter (statuses as of 11/05/2023) Immunizations Name Administration Dates Next Due COVID-19 [...] Care Team (Late st Contact Info) Description 11/07/2023 4:00 PM EDT [facility] [address] [facility] [place] [address] Lana Lieberman RN [address] [facility] [place] [address] 04/04/2024 2:40 PM EST Office Visit Nephrology, Caroline Sparks [address] [facility] [place] [address] Tirso Shah MD [address] [facility] [place] [address] 06/30/2024 10:00 AM EDT Office Visit Family Medicine [address] [place] [phone] Gilbert Calloway MD [address] [place] [address] [place] [address] Health Maintenance Due Date Last Done Comments DTap/Tdap Vaccines (1 - Tdap) 11/15/1957 Adult Wellness Visit 2002 Depression Monitoring 09/29/2020 09/30/2019 Albumin/Creatinine Ratio 07/28/2023 023, 06/09/2020, 03/13/2019, Additional history exists TSH 07/28/2023 07/27/2022, 05/21, 06/09/2020, Additional history exists CKD PHOS USE SMARTSET 32237 10/05/202309/19, 06/08/2021, 09/07/2020, Additional history exists COVID-19 Vaccine ( season) 2023 01/04/2021, 04/19/2020, 04/04/2020, Additional history exists Influenza Vaccine (FLU shot) (#1) 2023 01/10/2022, 11/18/2020, 12/06/2019, Additional history exists CKD HGB USE SMARTSET 18718 03/06/202403/06, 03/06/2023, 10/04/2022, Additional history exists Pneumococcal [...] filedocumented as of this encounter Care Teams Lining Marker Relationship Specialty Start Date End Date Gilbert Calloway MD [address] [place] [address] [place] [phone] PCP - General Family Medicine 07/30/23 documented as of this encounter
--- OUTSIDE RECORDS SUMMARY | 2023-12-14 10:53 | External Medical Summary | Continuity Of Care Document ---
Author Name Unknown Address [address] [place] [address] Organization [facility] ( ) Care Team Providers Care Certified Tower Climber Name Role Phone Reena Markcarlene Primary Care Provider [phone] VITAL SIGNS Date Time Diastolic blood pressure Systolic blood pressure Body height Body weight Temperature SpO2 Blood Sugar Pulse Respirations 10709 925 43811 7 59 [place] [address] 925 39448 2 154.00 NI [address]8475 925 77379 5 101.00 mm[Hg] - Sitting 159.00 mm[Hg] - Sitting 96.90 Oral 78.00/ min 18.00/min 88545 925 85201 4 101.00 mm[Hg] - Sitting 159.00 mm[Hg] - Sitting 59 NI 154.00 NI 96.90 Ear 97.00 % 75.00/ min 18.00/min 21630 925 31064 3 75.00/ min 18.00/min 38022 925 28012 3 75.00/ min Immunizations Vaccine Date Status COVID-19 03/14/2020 Completed COVID-19 04/04/2020 Completed Influenza 12/06/2019 Completed Influenza 11/01/2020 Admitted After F van Season (PCV13)Pneumococcal 08/26/2014 Completed (PPSV23)Pneumococcal 10/26/2005 Completed Shingles 12/04/2019 Completed
--- OUTSIDE RECORDS SUMMARY | 2023-12-14 10:53 | External Medical Summary | Summary of Care ---
Author Name Unknown Organization [facility] Address [address] [place] [address] Phone [phone] Care Team Providers Care Keller Machine Operator Name Role Phone Gilbert Calloway MD Primary Care Provide r Encounter Details Date Type Department Care Team (Late st Contact Info) Description 11/15/2023 Population Health External Data Unspecified Department Allergies [...] discuss her pain concerns. She is aware [facility] does not manage chronic pain meds. With her history of confusion, would recommend against use of narcotic medication. Mild aortic stenosis 07/27/2021 Last Assessment & Plan: Following with cardiology Aortocoronary bypass status 03/09/2021 Chronic atrial fibrillation 03/01/2021 Overview: new onset, [facility] on apixaban Last Assessment & Plan: [...] ulcer 06/30/2014 06/26/2017 Overview: hgb 7.4 admitted [facility] CKD (chronic kidney disease) stage 3, [...] 2:40 PM EST [facility] [place] [address] Tirso Shah MD [address] [facility] [place] [address] 06/30/2024 10:00 AM EDT Office Visit [address] [phone] Gilbert Calloway MD [address] [place] [address] [place] [address] Health Maintenance Due Date Last Done Comments DTap/Tdap Vaccines (1 - Tdap) 11/15/1957 Adult Wellness Visit 2002 Depression Monitoring 09/29/2020 09/30/2019 Albumin/Creatinine Ratio 07/28/2023 023, 06/09/2020, 03/13/2019, Additional history exists TSH 07/28/2023 07/27/2022, 05/21, 06/09/2020, Additional history exists CKD PHOS USE SMARTSET 34188 10/05/202309/19, 06/08/2021, 09/07/2020, Additional history exists COVID-19 Vaccine ( season) 2023 01/04/2021, 04/19/2020, 04/04/2020, Additional history exists Influenza Vaccine (FLU shot) (#1) 2023 01/10/2022, 11/18/2020, 12/06/2019, Additional history exists CKD HGB USE SMARTSET 29773 03/06/202403/06, 03/06/2023, 10/04/2022, Additional history exists Pneumococcal [...] filedocumented as of this encounter Care Teams Keller Machine Operator Relationship Specialty Start Date End Date Gilbert Calloway MD [address] [place] [address] [place] [phone] PCP - General Family Medicine 07/30/23 documented as of this encounter
--- OUTSIDE RECORDS SUMMARY | 2023-12-14 10:53 | External Medical Summary | Continuity Of Care Document ---
Author Name Unknown Address [address] [place] [address] Organization [facility] ( ) Care Team Providers Care Net Manager Name Role Phone Delmer Valles Primary Care Provider [phone] Immunizations Vaccine Date Status COVID-19 03/14/2020 Completed COVID-19 04/04/2020 Completed Influenza 12/06/2019 Completed Influenza 11/01/2020 Admitted After F van Season (PCV13)Pneumococcal 08/26/2014 Completed (PPSV23)Pneumococcal 10/26/2005 Completed Shingles 12/04/2019 Completed
--- OUTSIDE RECORDS SUMMARY | 2023-12-14 10:53 | External Medical Summary | Continuity Of Care Document ---
Author Name Unknown Address [address] [place] [address] Organization [facility] ( ) Care Team Providers Care Tipping Machine Operator Automatic Name Role Phone Reena Markcarlene Primary Care Provider [phone] VITAL SIGNS Date Time Diastolic blood pressure Systolic blood pressure Body height Body weight Temperature SpO2 Blood Sugar Pulse Respirations 99588 925 58307 7 59 NI 76618 925 70676 2 154.00 NI 72875 925 44474 5 101.00 mm[Hg] - Sitting 159.00 mm[Hg] - Sitting 96.90 Oral 78.00/ min 18.00/min 47208 925 82257 4 101.00 mm[Hg] - Sitting 159.00 mm[Hg] - Sitting 59 NI 154.00 NI 96.90 Ear 97.00 % 75.00/ min 18.00/min 84241 925 90622 3 75.00/ min 18.00/min 17740 925 94362 3 75.00/ min Immunizations Vaccine Date Status COVID-19 03/14/2020 Completed COVID-19 04/04/2020 Completed Influenza 12/06/2019 Completed Influenza 11/01/2020 Admitted After F van Season (PCV13)Pneumococcal 08/26/2014 Completed (PPSV23)Pneumococcal 10/26/2005 Completed Shingles 12/04/2019 Completed
--- OUTSIDE RECORDS SUMMARY | 2023-12-14 10:53 | External Medical Summary | Continuity Of Care Document ---
Author Name Unknown Address [address] [place] [address] Organization [facility] ( ) Care Team Providers Care Operator Electronic Warfare Name Role Phone Reena Markcarlene Primary Care Provider [phone] VITAL SIGNS Date Time Diastolic blood pressure Systolic blood pressure Body height Body weight Temperature SpO2 Blood Sugar Pulse Respirations 26069 925 65087 7 59 NI 31401 925 80977 2 154.00 NI 57747 925 57916 5 101.00 mm[Hg] - Sitting 159.00 mm[Hg] - Sitting 96.90 Oral 78.00/ min 18.00/min 71786 925 89643 4 101.00 mm[Hg] - Sitting 159.00 mm[Hg] - Sitting 59 NI 154.00 NI 96.90 Ear 97.00 % 75.00/ min 18.00/min 26627 925 92147 3 75.00/ min 18.00/min 57497 925 65614 3 75.00/ min Immunizations Vaccine Date Status COVID-19 03/14/2020 Completed COVID-19 04/04/2020 Completed Influenza 12/06/2019 Completed Influenza 11/01/2020 Admitted After F van Season (PCV13)Pneumococcal 08/26/2014 Completed (PPSV23)Pneumococcal 10/26/2005 Completed Shingles 12/04/2019 Completed
[2023-12-14] MEDS: ACETAMINOPHEN 1,000 MG/100 ML VIAL IV STA (11:57)
[2023-12-14] MEDS: SODIUM CHLORIDE 0.9% 500 ML IV ONE (11:59)
--- NOTE | 2023-12-14 16:13 | Hospitalist Progress Note ---
Date of Service December 14, 2023 Assessment & Plan (1) Confusion: Plan: 85-year-old female with past medical history significant for hypothyroidism, history of hypercalcemia, hiatal hernia, thoracic aortic ectasia, chronic diastolic CHF, CAD status post CABG, hypertension, chronic atrial fibrillation, mild aortic stenosis, GERD, CKD stage III osteoarthritis depression, insomnia, mixed incontinence urge and stress currently living [facility] was b rought in because of confusion. Patient was recently in the hospital for acute UTI and fevers. Had 7-day course of IV antibiotics during the hospital stay she was also found to have Mobitz type I heart block and cardiology reduce metoprolol dose to 37.5 mg and also found to have iron deficiency anemia , did okay and [facility]Currently [facility]. Patient seem to have forgot medications and some confusion at [facility] and brought in here. Patient agrees that she forgot medication for 3 days. But she refuses that she overdosed on any medications. Currently alert and oriented x 3. Able to give her history. Patient says she is eating and drinking okay. Ambulates without support. Denies any fevers. Having headache for last few hours. No dizziness. No blurred vision. No runny nose or sore throat. No cough. No chest pain or shortness of breath ,no nausea,no abdominal pain. Normal bowel and bladder movements. Hemodynamics are okay. Confusion Currently alert and oriented x3 Seems forgot medications for few days at [facility] head unremarkable Chest x-ray unremarkable UA - negat. No leukocytosis Procalcitonin negative SARS-CoV-2, influenza A and B, RSV negative Overall normal labs on admission except for abnormal thyroid profile. Will monitor Abnormal thyroid profile TSH is low and free T4 is high They were normal last month Patient on Synthyroid 100 mcg daily Patient declines any overdose Will hold Synthyroid Repeated thyroid profile May need to reduce dose or discuss with endocrine Discussed w/ endocrine - cont. to hold for ~ 5 days then reduce dose to 75, follow up as outpt Chronic diastolic CHF She was on torsemide as needed last admit Per recent PCP note she is not taking it Will monitor CAD s/p CABG Hx of mobitz type I atrial fibrillation On metoprolol of which dose was reduced last admit On Eliquis and statin Seems losartan held because of hypotension last admission PCP started on a irbesartan Will monitor Hypertension On metoprolol and irbesartan Will monitor Was hypotensive intermittently last admission Nausea - persistent nausea , which started this AM - however pt reports she could not eat anything day POA either as she did not feel well, but can't elaborate - she does not recall why she was brought in to the ED - KUB - Nonobstructive bowel gas pattern. - gentle IV NS, replace lytes as needed (Mag) - repeat troponin bit elevated, ECG obtained, Echo ordered - discussed w/ cardiology hx of pt's arrhythmia, tele seems unremarkable - will discuss further after echo read, will repeat trop - antiemetics prn -Hypomagnesemia, Mag replaced, cont. to monitor Lung nodules Needs follow-up GERD On Protonix Anemia Seems iron deficiency Hemoglobin 11.2 today Follow-up with PCP CKD stage III Creatinine 1.1 We will follow labs Depression Insomnia Continue home medications DVT prophylaxis On Eliquis Disposition Med/surge Full code Admission and Anticipated Discharge Date Admission Date: December 13, 2023 Subjective Pt seen in follow up of weakness, confusion - not taking meds at [facility] This AM pt confirms being weak and now also has persistent nausea TSH low , discussed w/ endocrinology, as below Infectious work up in ED - unrevealing, CT head negat. Mag low and replaced. Pt says she did not eat yesterday - provided 500 NS IV. IV pepcid and KUB obtained to further eval nausea but unrevealing. Pt says she has been feeling weak, and yesterday she didn't feel like eating but can't elaborate. Denies any fever, chills, denies abd. pain, but nausea is persistent. obtained ecg, repeated troponin, ordered echo, cardiology consulted Discussed earlier w/ cardiology (Dr. Sahni) her hx of arrhythmia (mobitz typeI), reviewed telemetry with him which was unrevealing Review of Systems Review of Systems: All systems reviewed & are unremarkable except as noted in Subjective Physical Exam Physical Exam: General- elderly F in NAD but complains of nausea Head- atraumatic Eyes- PERRL. Neck- supple Lungs- clear to auscultation no wheezing or crackles Heart- S1, S2, irregular, + murmur Abdomen- normal bowel sounds, soft, nontender, no distension Extremities- trace pretibial edema, no erythema seen Neuro- alert, oriented x 3; PERRL, no facial palsy; no dysarthria; moves extremities. Skin- warm & dry Results & Data Results & Data Vital Signs (Past 12 Hours) Vital Signs Temp Pulse Pulse Resp BP BP Pulse Ox 12/14/23 15:44 36.8 C 90 18 181/93 H 99 12/14/23 14:33 91 H 12/14/23 13:48 74 16 158/93 H 95 12/14/23 11:44 36.7 C 88 18 190/106 H 97 12/14/23 11:33 87 12/14/23 11:30 88 12/14/23 11:30 12/14/23 10:40 36.9 C 83 19 165/95 H 96 12/14/23 09:33 92 H 17 158/113 H 96 12/14/23 08:16 91 H 18 142/95 H 97 12/14/23 07:14 105 H 12/14/23 06:00 86 19 165/84 H 98 12/14/23 04:30 80 20 158/98 H 98 O2 Del Method 12/14/23 15:44 Room Air 12/14/23 14:33 12/14/23 13:48 Room Air 12/14/23 11:44 Room Air 12/14/23 11:33 12/14/23 11:30 12/14/23 11:30 Room Air 12/14/23 10:40 Room Air 12/14/23 09:33 Room Air 12/14/23 08:16 Room Air 12/14/23 07:14 12/14/23 06:00 Room Air 12/14/23 04:30 Room Air Laboratory Results 12/14/23 12/14/23 12/13/23 Range/Units 13:05 06:32 18:45 WBC 5.35 (4.8-10.8) K/ul RBC 3.89 L (4.20-5.40) M/uL Hgb 11.2 L (12.0-16.0) g/dl Hct 34.4 L (37.0-47.0) % MCV 88.4 (80.0-100.0) fL MCH 28.8 (25.0-34.0) pg MCHC 32.6 (32.0-36.0) g/dL RDW Std Deviation 48.2 H (36.4-46.3) fL RDW Coeff of Howie 14.8 H (11.5-14.5) % Plt Count 178 (130-400) K/uL MPV 10.1 (9.4-12.4) fL Immature Gran % (Auto) 0.0 % Neut % (Auto) 52.6 % Lymph % (Auto) 32.3 % [place] % (Auto) 11.8 % Eos % (Auto) 2.6 % Baso % (Auto) 0.7 % Neut # (Auto) 2.81 (1.40-6.50) K/uL Lymph # (Auto) 1.73 (1.20-3.40) K/uL [place] # (Auto) 0.63 H (0.11-0.59) K/uL Eos # (Auto) 0.14 (0.00-0.50) K/uL Baso # (Auto) 0.04 (0.00-0.20) K/uL Immature Gran # (Auto) 0.00 L (0.01-0.20) K/uL PT (9.0-12.0) Seconds INR (0.9-1.1) APTT (21-31) Seconds PTT Ratio Sodium 140 (136-145) mmol/L Potassium 3.7 (3.5-5.1) mmol/L Chloride 109 H (98-107) mmol/L Carbon Dioxide 22 (21-32) mmol/L Anion Gap 9 (3-11) BUN 16 (6-23) mg/dl Creatinine 1.03 (0.6-1.2) mg/dl Est Cr Clr Drug Dosing 36.5 ml/min eGFR 52.63 BUN/Creatinine Ratio 15.5 (10-20) Glucose 98 (70-99(Fasting)) mg/dl Calcium 9.8 (8.6-10.3) mg/dl Magnesium 1.6 L (1.7-2.4) mg/dl Total Bilirubin (0.2-1.0) mg/dl AST (13-39) U/L ALT (7-52) U/L Alkaline Phosphatase (34-104) U/L Troponin I High Sens 23.2 H D (0-14) pg/ml Total Protein (6.0-8.3) gm/dl Albumin (3.4-5.0) gm/dl Globulin (2.5-4.0) gm/dl Albumin/Globulin Ratio (0.9-2) Procalcitonin (0-0.5) ng/ml TSH 0.148 L (0.300-4.500) uIu/ml Free T4 (0.61-1.60) ng/dl Urine Color Urine Appearance (Clear) Urine pH (4.5-7.5) Ur Specific [place] (1.000-1.030) Urine Protein (Negative) Urine Glucose (UA) (Negative) Urine Ketones (Negative) Urine Blood (Negative) Urine Nitrite (Negative) Urine Bilirubin (Negative) Urine Urobilinogen (Negative) Ur Leukocyte Esterase (Negative) Lyme Disease Screen Negative (Negative) SARS-CoV-2 (PCR) NEGATIVE (Negative) Influenza Type A (PCR) Negative (Neg) Influenza Type B (PCR) Negative (Neg) RSV (RT-PCR) Negative (Neg) 12/13/23 12/13/23 12/13/23 Range/Units 18:35 17:35 15:16 WBC 6.13 (4.8-10.8) K/ul RBC 3.84 L (4.20-5.40) M/uL Hgb 11.2 L (12.0-16.0) g/dl Hct 33.7 L (37.0-47.0) % MCV 87.8 (80.0-100.0) fL MCH 29.2 (25.0-34.0) pg MCHC 33.2 (32.0-36.0) g/dL RDW Std Deviation 47.8 H (36.4-46.3) fL RDW Coeff of Howie 14.7 H (11.5-14.5) % Plt Count 185 (130-400) K/uL MPV 10.3 (9.4-12.4) fL Immature Gran % (Auto) 0.2 % Neut % (Auto) 47.4 % Lymph % (Auto) 38.3 % [place] % (Auto) 10.8 % Eos % (Auto) 2.3 % Baso % (Auto) 1.0 % Neut # (Auto) 2.91 (1.40-6.50) K/uL Lymph # (Auto) 2.35 (1.20-3.40) K/uL [place] # (Auto) 0.66 H (0.11-0.59) K/uL Eos # (Auto) 0.14 (0.00-0.50) K/uL Baso # (Auto) 0.06 (0.00-0.20) K/uL Immature Gran # (Auto) 0.01 (0.01-0.20) K/uL PT 11.6 (9.0-12.0) Seconds INR 1.1 (0.9-1.1) APTT 25 (21-31) Seconds PTT Ratio 0.9 Sodium 140 (136-145) mmol/L Potassium 4.2 (3.5-5.1) mmol/L Chloride 107 (98-107) mmol/L Carbon Dioxide 22 (21-32) mmol/L Anion Gap 11 (3-11) BUN 19 (6-23) mg/dl Creatinine 1.13 (0.6-1.2) mg/dl Est Cr Clr Drug Dosing 33.3 ml/min eGFR 47.09 BUN/Creatinine Ratio 16.8 (10-20) Glucose 86 (70-99(Fasting)) mg/dl Calcium 10.2 (8.6-10.3) mg/dl Magnesium 1.7 (1.7-2.4) mg/dl Total Bilirubin 1.1 H (0.2-1.0) mg/dl AST 14 (13-39) U/L ALT 7 (7-52) U/L Alkaline Phosphatase 54 (34-104) U/L Troponin I High Sens 11.8 (0-14) pg/ml Total Protein 7.3 (6.0-8.3) gm/dl Albumin 4.0 (3.4-5.0) gm/dl Globulin 3.3 (2.5-4.0) gm/dl Albumin/Globulin Ratio 1.2 (0.9-2) Procalcitonin < 0.02 (0-0.5) ng/ml TSH 0.087 L (0.300-4.500) uIu/ml Free T4 2.05 H (0.61-1.60) ng/dl Urine Color Yellow Urine Appearance Clear (Clear) Urine pH 7.0 (4.5-7.5) Ur Specific [place] 1.011 (1.000-1.030) Urine Protein Negative (Negative) Urine Glucose (UA) Negative (Negative) Urine Ketones Negative (Negative) Urine Blood Negative (Negative) Urine Nitrite Negative (Negative) Urine Bilirubin Negative (Negative) Urine Urobilinogen Negative (Negative) Ur Leukocyte Esterase Negative (Negative) Lyme Disease Screen (Negative) SARS-CoV-2 (PCR) (Negative) Influenza Type A (PCR) (Neg) Influenza Type B (PCR) (Neg) RSV (RT-PCR) (Neg) Medications Administered Current Inpatient Medications Apixaban (Apixaban 5 Mg Tablet) 5 mg PO BID [facility] Stop: 01/13/24 08:59 Last Admin: 12/14/23 10:12 Dose: Not Given Buspirone HCl (Buspirone 5 Mg Tab) 10 mg PO BID [facility] Stop: 01/13/24 08:59 Last Admin: 12/14/23 10:12 Dose: Not Given Calcitriol (Calcitriol 0.25 Mcg Capsule) 0.25 mcg PO MoWeFr@0900 [facility] Stop: 01/13/24 08:59 Last Admin: 12/14/23 10:12 Dose: Not Given Gabapentin (Gabapentin 300 Mg Cap) 300 mg PO TID [facility]AN Stop: 01/13/24 08:59 Last Admin: 12/14/23 14:31 Dose: 300 mg Promethazine HCl (Phenergan) 6.25 mg in 50.25 mls @ 201 mls/hr IV Q6H PRN PRN Reason: Nausea And Vomiting Stop: 01/13/24 15:21 Losartan Potassium (Losartan Potassium 25 Mg Tab) 25 mg PO DAILY [facility] Stop: 01/13/24 08:59 Last Admin: 12/14/23 10:12 Dose: Not Given Metoprolol Succinate (Metoprolol Succ 25mg Ext Rel Tab) 37.5 mg PO DAILY [facility] Stop: 01/13/24 08:59 Last Admin: 12/14/23 10:13 Dose: Not Given Pantoprazole Sodium (Pantoprazole 40 Mg Tab) 40 mg PO DAILY [facility] Stop: 01/13/24 08:59 Last Admin: 12/14/23 10:13 Dose: Not Given Rosuvastatin Calcium (Rosuvastatin Calcium 10 Mg Tab) 10 mg PO DAILY [facility] Stop: 01/13/24 08:59 Last Admin: 12/14/23 10:13 Dose: Not Given Trazodone HCl (Trazodone Hcl 50 Mg Tab) 150 mg PO HS [facility]AN Stop: 01/13/24 20:59
[2023-12-14] MEDS: LOSARTAN POTASSIUM 25 MG TAB PO ONE (16:48)
--- NOTE | 2023-12-14 18:24 | XCELERA ---
[id number] \\[id number]
--- NOTE | 2023-12-14 18:56 | Cardiology Consultation ---
Date of Consultation December 14, 2023 Assessment & Plan (1) Elevated troponin: (2) CAD (coronary artery disease): (3) Mobitz type 1 second degree AV block: (4) Paroxysmal A-fib: (5) Hypertension: (6) Mild aortic stenosis: (7) Nausea: (8) Ascending aorta dilation: Plan ASSESSMENT/PLAN: 1. Elevated troponin: Her high-sensitivity troponin is often times elevated dating back to 2022. She does not present with acute coronary syndrome. Likely demand ischemia in the setting of significant hypertension after not taking her medications for several days. Ischemic evaluation not necessary at this time. 2. Nausea: As per primary hospitalist service. Likely GI in etiology. 3. Hypertension: Had been noncompliant with her home medical therapy for a few days. She did not take her p.o. antihypertensive agent today due to her nausea. Will defer acute management to primary hospitalist service. Given that she was able to eat some food this evening, she will hopefully tolerate her oral medications now. 4. CAD s/p CABG x 1: She recalls that prior to bypass, she had significant angina described as chest discomfort. She denies any recent angina. She appears euvolemic. Blood pressure management as above. Can continue statin therapy. 5. Dilated ascending aorta: Not fully visualized on today's echo, but similar to what was seen on previous echo. CT imaging on personal review also demonstrates dilated ascending aorta. Stable findings. No chest, back, or abdominal pain to suggest acute aortic pathology. Can continue beta-brendan. Optimize blood pressure control. Can be followed in the outpatient setting if applicable. Avoid strenuous lifting for which the Valsalva maneuver is required. 6. Aortic stenosis: Nonsevere. Can be followed in the outpatient setting. 7. Paroxysmal atrial fibrillation: Known issue chronically. On anticoagulation for stroke risk reduction. Continue beta-brendan. 8. Mobitz 1: Seems to be asymptomatic in this regard. Also previously documented. 9. Disposition: Cardiology will sign off at this time. Patient care communicated with Dr. Phan of the primary hospitalist service. For any further questions or concerns, Dr. Crowe is on-call. Thank you for allowing me to participate in the care of your patient. Please call for any other questions or concerns. Sincerely, Eliu Sahni M.D. History of Present Illness Reason for Consultation: elevated trop; nausea Requesting Physician: Paras Phan MD Attending Physician: Paras Phan MD History of Present Illness Ms. Howard is a very pleasant 85-year-old female with history significant for CAD s/p CABG x 1, aortic stenosis, mitral regurgitation, paroxysmal atrial fibrillation, Mobitz 1, heart failure with preserved EF, dilated ascending aorta, hiatal hernia, hypothyroidism. Her primary digital campaign specialist is Dr. Adams. She was admitted on 12/13/2023, reportedly for confusion. She recalls that she forgot to take her medications for 3 or 4 days. She no longer feels confused. She has had what she refers to as "severe nausea" for 2 days. She had dry heaving and a few episodes of emesis this morning. She finally ate some food this evening and seemed to tolerate it well. She still has some nausea. She denies abdominal pain, diarrhea, melena, hematochezia, hematuria. She denies back pain, chest pain, syncope, near syncope, or palpitations. She has chronic and stable shortness of breath that can occur at any time and occurs only occasionally. There has not been any worsening of her shortness of breath. She denies edema. Review of systems: As above. Family history: Noncontributory. Social history: She denies tobacco, alcohol, or drug abuse. She lives alone. No children. Resides at [facility]. She was unaccompanied. Allergies Allergy/AdvReac Type Severity Reaction Status Date / Time nitroglycerin AdvReac Severe "PROJECTILE Verified 01/29/23 15:15 VOMITTING" ergotamine AdvReac Intermediate vomiting Verified 01/29/23 15:15 Home Medications Medication Instructions Recorded Confirmed Type apixaban 5 mg tablet (Eliquis) 5 mg PO BID 12/13/23 12/13/23 History buspirone 10 mg tablet 10 mg PO BID 12/13/23 12/13/23 History calcitriol 0.25 mcg capsule 0.25 mcg PO UD 12/13/23 12/13/23 History gabapentin 300 mg capsule 300 mg PO TID 12/13/23 12/13/23 History irbesartan 75 mg tablet 75 mg PO DAILY 12/13/23 12/13/23 History levothyroxine 100 mcg tablet 100 mcg PO DAILY 12/13/23 12/13/23 History loperamide 2 mg capsule 2 mg PO Q6H PRN Diarrhea 12/13/23 12/13/23 History metoprolol succinate 25 mg 37.5 mg PO DAILY 12/13/23 12/13/23 History tablet,extended release 24 hr pantoprazole 40 mg tablet,delayed 40 mg PO DAILY 12/13/23 12/13/23 History release rosuvastatin 10 mg tablet 10 mg PO DAILY 12/13/23 12/13/23 History trazodone 150 mg tablet 150 mg PO HS 12/13/23 12/13/23 History Problem List (Updated 12/14/23 @ 19:05 by Michi Sahni MD) Ascending aorta dilation Acute alteration in mental status (Acute) Confusion Mobitz type 1 second degree AV block Costochondritis Elevated troponin (Acute) Weakness (Acute) SOB (shortness of breath) (Acute) History of coronary artery disease (Acute) Precordial chest pain (Acute) CAD (coronary artery disease) Hypophosphatemia Hypomagnesemia Acute on chronic diastolic CHF (congestive heart failure) Pneumonia (Acute) Sepsis due to pneumonia Hyperparathyroidism Hypercalcemia Anticoagulant long-term use Precordial chest pain (Acute) (HFpEF) heart failure with preserved ejection fraction Paroxysmal A-fib Chronic heart failure with preserved ejection fraction (HFpEF) Labile hypertension Sinus pause Chest pain, atypical Hypertension (Acute) Hypothyroidism KIM (acute kidney injury) (Acute) Acute on chronic heart failure with preserved ejection fraction (HFpEF) Greater trochanteric bursitis of right hip Anxiety (Chronic) Chronic osteoarthritis (Chronic) GERD (gastroesophageal reflux disease) (Chronic) DJD of left shoulder Primary osteoarthritis, right shoulder Diarrhea (Acute) Urinary incontinence (Chronic) Syncope and collapse Arthritis of right shoulder region (Acute) Depression with anxiety (Acute) Insomnia (Acute) Ambulatory dysfunction (Acute) Arthritis Depression Patient History Medical History Somatic dysfunction of sacroiliac joint History of blood transfusion 03/23 GASTRIC ULCER History of gastric ulcer 2013 Spinal stenosis Gastric ulcer Atrial fibrillation with rapid ventricular response (11/2022) Fall Moderate mitral regurgitation Mild aortic stenosis Transient ischemic attack (TIA) ~2013>REASON FOR PLAVIX Osteoarthritis Chronic back pain Dyslipidemia Chronic kidney disease stage 3 Hypertension Surgical History 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 History of cardiac cath NO STENTS History of coronary artery bypass graft 1998 (1 VESSEL) S/P epidural steroid injection History of esophagogastroduodenoscopy (EGD) S/p reverse total shoulder arthroplasty RT/LEFT History of abdominoplasty PANNICULECTOMY History of colonoscopy History of arthroplasty of right hip History of arthroplasty of left hip History of hysterectomy with oophorectomy History of arthroplasty of left shoulder History of tonsillectomy and adenoidectomy H/O bilateral salpingo-oophorectomy with hyter Family History Father , age 74 Allergic reaction Mother , 80s CHF (congestive heart failure) Other No family history of adverse response to anesthesia Social History Smoking Status: Never smoker Second Hand Exposure: No; Do You Dip or Chew Tobacco: No; Hx Alcohol Use: No Hx Substance Use: No Preferred Language: Chinese Communication Ability: Effective Visual Impairment: No Limitations Specifications Checker Required: No Beliefs That Will Affect Care: None marital status: Single Current Living Situation: Alone Current Living Situation Comment: [facility] [place] How many Children do You have: 0 Other Information That Helps Us Care for You: No Feels Safe at Home: Yes Safety Concerns: Feels Safe At This Time Assistive Devices: None Physical Exam Physical Exam: Gen.: No acute distress. Alert and oriented. HEENT: Anicteric sclera. Neck: No JVD. Normal carotid upstrokes bilaterally. Cardiac: Regular. Normal S1-S2. 2/6 mid peaking systolic ejection murmur heard best at right upper sternal border. No rubs or gallops. Pulmonary: Clear to auscultation bilaterally without wheezes, rales, or rhonchi. Abdomen: Soft, nontender, nondistended, with normoactive bowel sounds. No bruits noted. Extremities: 2+ radial pulses bilaterally. 2+ posterior tibialis pulses bilater ally. No edema or cyanosis. Psychiatric: Affect appears appropriate. Results & Data Vital Signs (Past 12 Hours) Vital Signs Temp Pulse Pulse Resp BP BP Pulse Ox 12/14/23 15:44 36.8 C 90 18 181/93 H 99 12/14/23 14:33 91 H 12/14/23 13:48 74 16 158/93 H 95 12/14/23 11:44 36.7 C 88 18 190/106 H 97 12/14/23 11:33 87 12/14/23 11:30 88 12/14/23 11:30 12/14/23 10:40 36.9 C 83 19 165/95 H 96 12/14/23 09:33 92 H 17 158/113 H 96 12/14/23 08:16 91 H 18 142/95 H 97 12/14/23 07:14 105 H O2 Del Method 12/14/23 15:44 Room Air 12/14/23 14:33 12/14/23 13:48 Room Air 12/14/23 11:44 Room Air 12/14/23 11:33 12/14/23 11:30 12/14/23 11:30 Room Air 12/14/23 10:40 Room Air 12/14/23 09:33 Room Air 12/14/23 08:16 Room Air 12/14/23 07:14 Laboratory Results Laboratory Results - last 24 hr 12/13/23 12/13/23 12/13/23 17:35 18:35 18:45 WBC 6.13 RBC 3.84 L Hgb 11.2 L Hct 33.7 L MCV 87.8 MCH 29.2 MCHC 33.2 RDW Std Deviation 47.8 H RDW Coeff of Howie 14.7 H Plt Count 185 MPV 10.3 Immature Gran % (Auto) 0.2 Neut % (Auto) 47.4 Lymph % (Auto) 38.3 [place]more % (Auto) 10.8 Eos % (Auto) 2.3 Baso % (Auto) 1.0 Neut # (Auto) 2.91 Lymph # (Auto) 2.35 [place] # (Auto) 0.66 H Eos # (Auto) 0.14 Baso # (Auto) 0.06 Immature Gran # (Auto) 0.01 PT 11.6 INR 1.1 APTT 25 PTT Ratio 0.9 Sodium 140 Potassium 4.2 Chloride 107 Carbon Dioxide 22 Anion Gap 11 BUN 19 Creatinine 1.13 Est Cr Clr Drug Dosing 33.3 eGFR 47.09 BUN/Creatinine Ratio 16.8 Glucose 86 Calcium 10.2 Magnesium 1.7 Total Bilirubin 1.1 H AST 14 ALT 7 Alkaline Phosphatase 54 Troponin I High Sens 11.8 Total Protein 7.3 Albumin 4.0 Globulin 3.3 Albumin/Globulin Ratio 1.2 Procalcitonin < 0.02 TSH 0.087 L Free T4 2.05 H Lyme Disease Screen SARS-CoV-2 (PCR) NEGATIVE Influenza Type A (PCR) Negative Influenza Type B (PCR) Negative RSV (RT-PCR) Negative 12/14/23 12/14/23 12/14/23 06:32 13:05 16:48 WBC 5.35 RBC 3.89 L Hgb 11.2 L Hct 34.4 L MCV 88.4 MCH 28.8 MCHC 32.6 RDW Std Deviation 48.2 H RDW Coeff of Howie 14.8 H Plt Count 178 MPV 10.1 Immature Gran % (Auto) 0.0 Neut % (Auto) 52.6 Lymph % (Auto) 32.3 [place] % (Auto) 11.8 Eos % (Auto) 2.6 Baso % (Auto) 0.7 Neut # (Auto) 2.81 Lymph # (Auto) 1.73 [place] # (Auto) 0.63 H Eos # (Auto) 0.14 Baso # (Auto) 0.04 Immature Gran # (Auto) 0.00 L PT INR APTT PTT Ratio Sodium 140 Potassium 3.7 Chloride 109 H Carbon Dioxide 22 Anion Gap 9 BUN 16 Creatinine 1.03 Est Cr Clr Drug Dosing 36.5 eGFR 52.63 BUN/Creatinine Ratio 15.5 Glucose 98 Calcium 9.8 Magnesium 1.6 L Total Bilirubin AST ALT Alkaline Phosphatase Troponin I High Sens 23.2 H D 27.2 H Total Protein Albumin Globulin Albumin/Globulin Ratio Procalcitonin TSH 0.148 L Free T4 Lyme Disease Screen Negative SARS-CoV-2 (PCR) Influenza Type A (PCR) Influenza Type B (PCR) RSV (RT-PCR) Diagnostic Findings ECHO 12/14/23: 1. Normal left ventricular size with hyperdynamic systolic function. EF > 70%. No regional wall motion abnormalities. Moderate concentric left ventricular hypertrophy. 2. Mild left atrial dilation. 3. Mild aortic stenosis with trace regurgitation. 4. Mild mitral regurgitation. 5. Mild pulmonary hypertension. Estimated RVSP 40 mmHg. 6. Dilated ascending aorta (4.4 cm), but not fully visualized. 7. Compared to prior study on 01/29/2023, no significant change. Ascending aorta appear similar in size. Telemetry personally reviewed: Predominantly sinus rhythm. Episodes of probable atrial fibrillation, however brief. Possible SVT versus atrial tachycardia, once again not the predominant rhythm. Brief episodes of Mobitz 1. ECG personally reviewed: ECG 12/14/2023 at 1417: Sinus rhythm first-degree AV block 81 bpm. Possible anterior infarct. ECG 12/13/2023 2107: Sinus complex with atrial runs 103 bpm. Septal infarct. Nonspecific ST abnormality. ECG 12/13/2023 at 1730: Sinus rhythm first-degree AV block 76 bpm. Labs reviewed and notable for slightly elevated high-sensitivity troponin (chronically often has very minimal troponin elevation), stable renal function, normal potassium, hypomagnesemia, normal transaminase levels, suppressed TSH, mild but chronic and stable anemia. History and physical report reviewed. CTA chest 11/03/2023: No acute abnormality or PE per radiology. Stable pulmonary nodules. On personal review, ascending thoracic aorta appears mildly dilated. CT head 12/13/2023: No hemorrhage or acute territorial ischemia per radiology. KUB report reviewed from 12/14/2023: Nonobstructive bowel gas pattern. Chest x-ray 12/13/2023: Cardiomegaly. No active disease in the chest per radiology. Hiatal hernia. On personal review, no obvious infiltrate or pleural effusion. Medications Administered Current Inpatient Medications Apixaban (Apixaban 5 Mg Tablet) 5 mg PO BID YAN Stop: 01/13/24 08:59 Last Admin: 12/14/23 10:12 Dose: Not Given Buspirone HCl (Buspirone 5 Mg Tab) 10 mg PO BID YAN Stop: 01/13/24 08:59 Last Admin: 12/14/23 10:12 Dose: Not Given Calcitriol (Calcitriol 0.25 Mcg Capsule) 0.25 mcg PO MoWeFr@0900 YAN Stop: 01/13/24 08:59 Last Admin: 12/14/23 10:12 Dose: Not Given Gabapentin (Gabapentin 300 Mg Cap) 300 mg PO TID YAN Stop: 01/13/24 08:59 Last Admin: 12/14/23 14:31 Dose: 300 mg Promethazine HCl (Phenergan) 6.25 mg in 50.25 mls @ 201 mls/hr IV Q6H PRN PRN Reason: Nausea And Vomiting Stop: 01/13/24 15:21 Losartan Potassium (Losartan Potassium 25 Mg Tab) 25 mg PO DAILY YAN Stop: 01/13/24 08:59 Last Admin: 12/14/23 10:12 Dose: Not Given Metoprolol Succinate (Metoprolol Succ 25mg Ext Rel Tab) 37.5 mg PO DAILY YAN Stop: 01/13/24 08:59 Last Admin: 12/14/23 10:13 Dose: Not Given Pantoprazole Sodium (Pantoprazole 40 Mg Tab) 40 mg PO DAILY YAN Stop: 01/13/24 08:59 Last Admin: 12/14/23 10:13 Dose: Not Given Rosuvastatin Calcium (Rosuvastatin Calcium 10 Mg Tab) 10 mg PO DAILY YAN Stop: 01/13/24 08:59 Last Admin: 12/14/23 10:13 Dose: Not Given Trazodone HCl (Trazodone Hcl 50 Mg Tab) 150 mg PO HS [facility] Stop: 01/13/24 20:59 PG Care Time/CCT Total # of Minutes Spent Total Time Spent with Patient: Total time spent is greater than 50% in coordination of care (as documented) at patient's floor/unit and/or counseling patient: Coding Level of Care Code 82748 INT INP/OBS CARE 3/75MIN Diagnoses Elevated troponin R79.89 Coronary artery disease involving [place] coronary artery of [place] heart without angina pectoris I25.10 Coronary Disease-Associated Artery/Lesion type: [place] artery [place] vs. transplanted heart: [place] heart Associated angina: without angina Mobitz type 1 second degree AV block I44.1 Paroxysmal A-fib I48.0 Hypertension I10 Mild aortic stenosis I35.0 Nausea R11.0 Ascending aorta dilation I77.810 (2) CAD (coronary artery disease) Coronary Disease-Associated Artery/Lesion type: [place] artery [place] vs. transplanted heart: [place] heart Associated angina: without angina Qualified Code(s): I25.10 - Atherosclerotic heart disease of [place] coronary artery without angina pectoris
[2023-12-14] MEDS: METOPROLOL TARTRATE 25 MG TAB PO ONE (20:30)
[2023-12-14] MEDS: traZODone HCL 50 MG TAB PO SCH (20:32)
--- NOTE | 2023-12-14 22:18 | Electrocardiogram Report ---
Test Reason : Blood Pressure : */* mmHG Vent. Rate : 76 BPM Atrial Rate : 76 BPM P-R Int : 230 ms QRS Dur : 72 ms QT Int : 362 ms P-R-T Axes : -4 4 16 degrees QTcB Int : 407 ms Sinus rhythm with 1st degree A-V block Possible Septal infarct When compared with ECG of 06-Nov-2023 15:32, Nonspecific T wave abnormality no longer evident in Anterior leads Confirmed by Michi Sahni ([id number]) on 12/14/2023 10:18:22 PM Referred By: REFERRED SELF Confirmed By: Michi Sahni
--- NOTE | 2023-12-14 22:22 | Electrocardiogram Report ---
Test Reason : Blood Pressure : */* mmHG Vent. Rate : 103 BPM Atrial Rate : 111 BPM P-R Int : 324 ms QRS Dur : 82 ms QT Int : 324 ms P-R-T Axes : 8 9 -44 degrees QTcB Int : 424 ms Sinus complexes with 1st degree A-V block with accelerated junctional rhythm with retrograde P wave Septal infarct , age undetermined Nonspecific ST abnormality Abnormal ECG When compared with ECG of 13-Dec-2023 17:30, Nonspecific T wave abnormality, worse in Inferior leads Accelerated Junctional rhythm is now Present Confirmed by Michi Sahni ([id number]) on 12/14/2023 10:22:09 PM Referred By: REFERRED SELF Confirmed By: Michi Sahni
--- NOTE | 2023-12-14 22:23 | Electrocardiogram Report ---
Test Reason : Blood Pressure : */* mmHG Vent. Rate : 81 BPM Atrial Rate : 81 BPM P-R Int : 258 ms QRS Dur : 82 ms QT Int : 384 ms P-R-T Axes : 61 -2 1 degrees QTcB Int : 446 ms Sinus rhythm with 1st degree A-V block Anterior infarct (cited on or before 13-Dec-2023) Abnormal ECG When compared with ECG of 13-Dec-2023 21:07, Questionable change in initial forces of Anteroseptal leads ST no longer depressed in Lateral leads Confirmed by Michi Sahni ([id number]) on 12/14/2023 10:22:54 PM Referred By: REFERRED SELF Confirmed By: Michi Sahni
[2023-12-15 09:50] LABS: Hematocrit (blood only) 34.4 % (37.0-47.0); Hemoglobin 11.1 g/dl (12.0-16.0); Mean Corpuscular Hemoglobin 28.9 pg (25.0-34.0); Mean Corpuscular Hgb Conc 32.3 g/dL (32.0-36.0); Mean Corpuscular Volume 89.6 fL (80.0-100.0); Mean Platelet Volume 10.6 fL (9.4-12.4); Platelet Count 175 K/uL (130-400); RDW Coefficient of Variation 14.9 % (11.5-14.5); RDW Standard Deviation 48.3 fL (36.4-46.3); Red Blood Count 3.84 M/uL (4.20-5.40); White Blood Count 4.55 K/ul (4.8-10.8)
[2023-12-15 10:04] LABS: Albumin Globulin Ratio 1.3 (0.9-2); Albumin Level 3.7 gm/dl (3.4-5.0); BUN Creatinine Ratio 14.2 (10-20); Bilirubin,Total 0.9 mg/dl (0.2-1.0); Calcium 9.9 mg/dl (8.6-10.3); Creatinine Clr Calc Pharmacy 32.6 ml/min; Globulin 2.9 gm/dl (2.5-4.0); Magnesium 1.9 mg/dl (1.7-2.4); Phosphorus 3.3 mg/dl (2.5-4.9); Potassium 3.8 mmol/L (3.5-5.1); Total Protein 6.6 gm/dl (6.0-8.3)
--- NOTE | 2023-12-15 13:49 | Hospitalist Progress Note ---
Date of Service December 15, 2023 Assessment & Plan (1) Confusion: Plan: 85-year-old female with past medical history significant for hypothyroidism, history of hypercalcemia, hiatal hernia, thoracic aortic ectasia, chronic diastolic CHF, CAD status post CABG, hypertension, chronic atrial fibrillation, mild aortic stenosis, GERD, CKD stage III osteoarthritis depression, insomnia, mixed incontinence urge and stress currently living at [facility]group home was b rought in because of confusion. Patient was recently in the hospital for acute UTI and fevers. Had 7-day course of IV antibiotics during the hospital stay she was also found to have Mobitz type I heart block and cardiology reduce metoprolol dose to 37.5 mg and also found to have iron deficiency anemia , did okay and was discharged to nursing home facility .Currently at [facility]. Patient seem to have forgot medications and some confusion at [facility] group home and brought in here. Patient agrees that she forgot medication for 3 days. But she refuses that she overdosed on any medications. Currently alert and oriented x 3. Able to give her history. Patient says she is eating and drinking okay. Ambulates without support. Denies any fevers. Having headache for last few hours. No dizziness. No blurred vision. No runny nose or sore throat. No cough. No chest pain or shortness of breath ,no nausea,no abdominal pain. Normal bowel and bladder movements. Hemodynamics are okay. Confusion Currently alert and oriented x3 Seems forgot medications for few days at [facility]group home CT head unremarkable Chest x-ray unremarkable UA - negat. No leukocytosis Procalcitonin negative SARS-CoV-2, influenza A and B, RSV negative Overall normal labs on admission except for abnormal thyroid profile. Will monitor Abnormal thyroid profile TSH is low and free T4 is high They were normal last month Patient on Synthyroid 100 mcg daily Patient declines any overdose Will hold Synthyroid Repeated thyroid profile May need to reduce dose or discuss with endocrine Discussed w/ endocrine - cont. to hold for ~ 5 days then reduce dose to 75, follow up as outpt Chronic diastolic CHF She was on torsemide as needed last admit Per recent PCP note she is not taking it Will monitor CAD s/p CABG Hx of mobitz type I atrial fibrillation On metoprolol of which dose was reduced last admit On Eliquis and statin Seems losartan held because of hypotension last admission PCP started on a irbesartan Will monitor Hypertension On metoprolol and irbesartan Will monitor Was hypotensive intermittently last admission Nausea - now resolved - had persistent nausea - pt reports she could not eat anything day POA either as she did not feel well, but can't elaborate - she could not recall why she was brought in to the ED - KUB - Nonobstructive bowel gas pattern. - gentle IV NS, replace lytes as needed (Mag) - repeat troponin bit elevated, ECG obtained, Echo ordered and discussed w/ cardiology- Per cardiology Elevated troponin: Likely demand ischemia in the setting of significant h ypertension after not taking her medications for several days. Ischemic evaluation not necessary at this time. Dilated ascending aorta: Not fully visualized on today's echo, but similar to what was seen on previous echo. CT imaging on personal review also demonstrates dilated ascending aorta. Stable findings. No chest, back, or abdominal pain to suggest acute aortic pathology. Can continue beta-brendan. Optimize blood pressure control. Can be followed in the outpatient setting if applicable. Avoid strenuous lifting for which the Valsalva maneuver is required. -Hypomagnesemia, Mag replaced, cont. to monitor Lung nodules Needs follow-up GERD On Protonix Anemia Seems iron deficiency Hemoglobin 11.2 Follow-up with PCP CKD stage III Creatinine 1.1 We will follow labs Depression Insomnia Continue home medications DVT prophylaxis On Eliquis Full code Admission and Anticipated Discharge Date Admission Date: December 13, 2023 Subjective Pt seen in follow up of weakness, confusion - not taking meds at personal group home Yesterday pt had persistent nausea, thankfully today she feels much better, no more nausea Yesterday could not walk, today she worked w/ PT TSH low , discussed w/ endocrinology yesterday, as below Infectious work up in ED - unrevealing, CT head negat. Denies any fever, chills, denies chest pain, or shortness of breath, denies abd. pain, or nausea Today she tells me she remembered that her BP was very high and that's why she was sent to the ED. Per CM note, HH present and pt had chest pain and jaw pain and was trying to call 911 but instead kept calling 411, and her medications were incorrect and misplaced, therefore they sent her to the ED. Review of Systems Review of Systems: All systems reviewed & are unremarkable except as noted in Subjective Physical Exam Physical Exam: General- elderly F in NAD Head- atraumatic Eyes- PERRL. Neck- supple Lungs- clear to auscultation no wheezing or crackles Heart- S1, S2, irregular, + murmur Abdomen- normal bowel sounds, soft, nontender, no distension Extremities- trace pretibial edema, no erythema seen Neuro- alert, oriented x 3; PERRL, no facial palsy; no dysarthria; moves extremities. Skin- warm & dry Results & Data Results & Data Vital Signs (Past 12 Hours) Vital Signs Temp Pulse Pulse Resp BP BP Pulse Ox 12/15/23 11:56 36.4 C L 89 20 116/69 97 12/15/23 07:49 12/15/23 07:34 37.2 C 89 20 154/80 H 97 12/15/23 07:08 68 12/15/23 03:17 36.6 C 78 16 137/78 99 O2 Del Method 12/15/23 11:56 Room Air 12/15/23 07:49 Room Air 12/15/23 07:34 Room Air 12/15/23 07:08 12/15/23 03:17 Room Air Laboratory Results 12/15/23 12/14/23 12/14/23 Range/Units 09:14 16:48 13:05 WBC 4.55 L (4.8-10.8) K/ul RBC 3.84 L (4.20-5.40) M/uL Hgb 11.1 L (12.0-16.0) g/dl Hct 34.4 L (37.0-47.0) % MCV 89.6 (80.0-100.0) fL MCH 28.9 (25.0-34.0) pg MCHC 32.3 (32.0-36.0) g/dL RDW Std Deviation 48.3 H (36.4-46.3) fL RDW Coeff of Howie 14.9 H (11.5-14.5) % Plt Count 175 (130-400) K/uL MPV 10.6 (9.4-12.4) fL Sodium 141 (136-145) mmol/L Potassium 3.8 (3.5-5.1) mmol/L Chloride 109 H (98-107) mmol/L Carbon Dioxide 25 (21-32) mmol/L Anion Gap 7 (3-11) BUN 16 (6-23) mg/dl Creatinine 1.13 (0.6-1.2) mg/dl Est Cr Clr Drug Dosing 32.6 ml/min eGFR 47.09 BUN/Creatinine Ratio 14.2 (10-20) Glucose 109 H (70-99(Fasting)) mg/dl Calcium 9.9 (8.6-10.3) mg/dl Phosphorus 3.3 (2.5-4.9) mg/dl Magnesium 1.9 (1.7-2.4) mg/dl Total Bilirubin 0.9 (0.2-1.0) mg/dl AST 16 (13-39) U/L ALT 7 (7-52) U/L Alkaline Phosphatase 46 (34-104) U/L Troponin I High Sens 27.2 H 23.2 H D (0-14) pg/ml Total Protein 6.6 (6.0-8.3) gm/dl Albumin 3.7 (3.4-5.0) gm/dl Globulin 2.9 (2.5-4.0) gm/dl Albumin/Globulin Ratio 1.3 (0.9-2) Lyme Disease Screen Negative (Negative) Medications Administered Current Inpatient Medications Apixaban (Apixaban 5 Mg Tablet) 5 mg PO BID [facility] Stop: 01/13/24 08:59 Last Admin: 12/15/23 07:53 Dose: 5 mg Buspirone HCl (Buspirone 5 Mg Tab) 10 mg PO BID [facility] Stop: 01/13/24 08:59 Last Admin: 12/15/23 07:53 Dose: 10 mg Calcitriol (Calcitriol 0.25 Mcg Capsule) 0.25 mcg PO [id number]@0900 [facility] Stop: 01/13/24 08:59 Last Admin: 12/14/23 10:12 Dose: Not Given Gabapentin (Gabapentin 300 Mg Cap) 300 mg PO TID [facility] Stop: 01/13/24 08:59 Last Admin: 12/15/23 13:07 Dose: 300 mg Promethazine HCl (Phenergan) 6.25 mg in 50.25 mls @ 201 mls/hr IV Q6H PRN PRN Reason: Nausea And Vomiting Stop: 01/13/24 15:21 Losartan Potassium (Losartan Potassium 25 Mg Tab) 25 mg PO DAILY [facility] Stop: 01/13/24 08:59 Last Admin: 12/15/23 07:54 Dose: 25 mg Metoprolol Succinate (Metoprolol Succ 25mg Ext Rel Tab) 37.5 mg PO DAILY [facility] Stop: 01/13/24 08:59 Last Admin: 12/15/23 07:52 Dose: 37.5 mg Pantoprazole Sodium (Pantoprazole 40 Mg Tab) 40 mg PO DAILY [facility] Stop: 01/13/24 08:59 Last Admin: 12/15/23 07:52 Dose: 40 mg Rosuvastatin Calcium (Rosuvastatin Calcium 10 Mg Tab) 10 mg PO DAILY [facility] Stop: 01/13/24 08:59 Last Admin: 12/15/23 07:52 Dose: 10 mg Trazodone HCl (Trazodone Hcl 50 Mg Tab) 150 mg PO HS [facility] Stop: 01/13/24 20:59 Last Admin: 12/14/23 20:32 Dose: 150 mg
[2023-12-16 08:08] LABS: BUN Creatinine Ratio 19.1 (10-20); Calcium 9.4 mg/dl (8.6-10.3); Creatinine Clr Calc Pharmacy 26.4 ml/min; Potassium 3.9 mmol/L (3.5-5.1)
--- NOTE | 2023-12-16 10:26 | Hospitalist Progress Note ---
Date of Service December 16, 2023 Assessment & Plan (1) Confusion: Plan: 85-year-old female with past medical history significant for hypothyroidism, history of hypercalcemia, hiatal hernia, thoracic aortic ectasia, chronic diastolic CHF, CAD status post CABG, hypertension, chronic atrial fibrillation, mild aortic stenosis, GERD, CKD stage III osteoarthritis depression, insomnia, mixed incontinence urge and stress currently living at [facility] was b rought in because of confusion. Patient was recently in the hospital for acute UTI and fevers. Had 7-day course of IV antibiotics during the hospital stay she was also found to have Mobitz type I heart block and cardiology reduce metoprolol dose to 37.5 mg and also found to have iron deficiency anemia , did okay [facility]. Patient seem to have forgot medications and some confusion at [facility] and brought in here. Patient agrees that she forgot medication for 3 days. But she refuses that she overdosed on any medications. Currently alert and oriented x 3. Able to give her history. Patient says she is eating and drinking okay. Ambulates without support. Denies any fevers. Having headache for last few hours. No dizziness. No blurred vision. No runny nose or sore throat. No cough. No chest pain or shortness of breath ,no nausea,no abdominal pain. Normal bowel and bladder movements. Hemodynamics are okay. Confusion Currently alert and oriented x3 Seems forgot medications for few days at [facility] CT head unremarkable Chest x-ray unremarkable UA - negat. No leukocytosis Procalcitonin negative SARS-CoV-2, influenza A and B, RSV negative Overall normal labs on admission except for abnormal thyroid profile. Will monitor Abnormal thyroid profile TSH is low and free T4 is high They were normal last month Patient on Synthyroid 100 mcg daily Patient declines any overdose Will hold Synthyroid Repeated thyroid profile May need to reduce dose or discuss with endocrine Discussed w/ endocrine - cont. to hold for ~ 5 days then reduce dose to 75, follow up as outpt Chronic diastolic CHF She was on torsemide as needed last admit Per recent PCP note she is not taking it Will monitor CAD s/p CABG Hx of mobitz type I atrial fibrillation On metoprolol of which dose was reduced last admit On Eliquis and statin Seems losartan held because of hypotension last admission PCP started on a irbesartan Will monitor Hypertension On metoprolol and irbesartan Will monitor Was hypotensive intermittently last admission Nausea - now resolved - had persistent nausea - pt reports she could not eat anything day POA either as she did not feel well, but can't elaborate - she could not recall why she was brought in to the ED - KUB - Nonobstructive bowel gas pattern. - gentle IV NS, replace lytes as needed (Mag) - repeat troponin bit elevated, ECG obtained, Echo ordered and discussed w/ cardiology- Per cardiology Elevated troponin: Likely demand ischemia in the setting of significant h ypertension after not taking her medications for several days. Ischemic evaluation not necessary at this time. Dilated ascending aorta: Not fully visualized on today's echo, but similar to what was seen on previous echo. CT imaging on personal review also demonstrates dilated ascending aorta. Stable findings. No chest, back, or abdominal pain to suggest acute aortic pathology. Can continue beta-brendan. Optimize blood pressure control. Can be followed in the outpatient setting if applicable. Avoid strenuous lifting for which the Valsalva maneuver is required. -Hypomagnesemia, Mag replaced, cont. to monitor Lung nodules Needs follow-up GERD On Protonix Anemia Seems iron deficiency Hemoglobin 11.2 Follow-up with PCP CKD stage III Creatinine 1.1 We will follow labs Depression Insomnia Continue home medications DVT prophylaxis On Eliquis Full code Dispo - discussed w/ CM Admission and Anticipated Discharge Date Admission Date: December 13, 2023 Subjective Pt seen in follow up of weakness, confusion - not taking meds at [facility] After admission pt had persistent nausea, thankfully next day nausea has resolved She also could not walk, but yesterday walked with PT Today she feels tired Denies any fever, chills, denies chest pain, or shortness of breath, denies abd. pain, or nausea TSH low , discussed w/ endocrinology as below Infectious work up in ED - unrevealing, CT head negat. Yesterday she told me she remembered that her BP was very high and that's why she was sent to the ED. Per CM note, HH present and pt had chest pain and jaw pain and was trying to call 911 but instead kept calling 411, and her medications were incorrect and misplaced, therefore they sent her to the ED. Review of Systems Review of Systems: All systems reviewed & are unremarkable except as noted in Subjective Physical Exam Physical Exam: General- elderly F in NAD Head- atraumatic Eyes- PERRL. Neck- supple Lungs- clear to auscultation no wheezing or crackles Heart- S1, S2, irregular, + murmur Abdomen- normal bowel sounds, soft, nontender, no distension Extremities- trace pretibial edema, no erythema seen Neuro- alert, oriented x 3; PERRL, no facial palsy; no dysarthria; moves extremities. Skin- warm & dry Results & Data Results & Data Vital Signs (Past 12 Hours) Vital Signs Temp Pulse Pulse Resp BP BP Pulse Ox 12/16/23 08:43 36.3 C L 79 16 150/80 H 97 12/16/23 07:35 12/16/23 07:07 63 12/16/23 02:41 36.6 C 64 18 105/67 95 12/15/23 22:41 83 12/15/23 22:29 36.8 C 62 18 97/65 L 95 O2 Del Method 12/16/23 08:43 Room Air 12/16/23 07:35 Room Air 12/16/23 07:07 12/16/23 02:41 Room Air 12/15/23 22:41 12/15/23 22:29 Room Air Laboratory Results 12/16/23 Range/Units 07:13 Sodium 139 (136-145) mmol/L Potassium 3.9 (3.5-5.1) mmol/L Chloride 109 H (98-107) mmol/L Carbon Dioxide 26 (21-32) mmol/L Anion Gap 4 (3-11) BUN 27 H (6-23) mg/dl Creatinine 1.41 H (0.6-1.2) mg/dl Est Cr Clr Drug Dosing 26.4 ml/min eGFR 36.10 BUN/Creatinine Ratio 19.1 (10-20) Glucose 101 H (70-99(Fasting)) mg/dl Calcium 9.4 (8.6-10.3) mg/dl Magnesium 2.0 (1.7-2.4) mg/dl Medications Administered Current Inpatient Medications Apixaban (Apixaban 5 Mg Tablet) 5 mg PO BID [facility] Stop: 01/13/24 08:59 Last Admin: 12/16/23 07:39 Dose: 5 mg Buspirone HCl (Buspirone 5 Mg Tab) 10 mg PO BID [facility] Stop: 01/13/24 08:59 Last Admin: 12/16/23 07:39 Dose: 10 mg Calcitriol (Calcitriol 0.25 Mcg Capsule) 0.25 mcg PO [id number]@0900 [facility] Stop: 01/13/24 08:59 Last Admin: 12/14/23 10:12 Dose: Not Given Gabapentin (Gabapentin 300 Mg Cap) 300 mg PO TID [facility] Stop: 01/13/24 08:59 Last Admin: 12/16/23 07:39 Dose: 300 mg Promethazine HCl (Phenergan) 6.25 mg in 50.25 mls @ 201 mls/hr IV Q6H PRN PRN Reason: Nausea And Vomiting Stop: 01/13/24 15:21 Losartan Potassium (Losartan Potassium 25 Mg Tab) 25 mg PO DAILY [facility] Stop: 01/13/24 08:59 Last Admin: 12/16/23 07:39 Dose: 25 mg Metoprolol Succinate (Metoprolol Succ 25mg Ext Rel Tab) 37.5 mg PO DAILY [facility] Stop: 01/13/24 08:59 Last Admin: 12/16/23 08:42 Dose: 37.5 mg Pantoprazole Sodium (Pantoprazole 40 Mg Tab) 40 mg PO DAILY [facility] Stop: 01/13/24 08:59 Last Admin: 12/16/23 07:38 Dose: 40 mg Rosuvastatin Calcium (Rosuvastatin Calcium 10 Mg Tab) 10 mg PO DAILY [facility] Stop: 01/13/24 08:59 Last Admin: 12/16/23 07:38 Dose: 10 mg Trazodone HCl (Trazodone Hcl 50 Mg Tab) 150 mg PO HS [facility] Stop: 01/13/24 20:59 Last Admin: 12/15/23 23:26 Dose: 150 mg
[2023-12-16] MEDS: ACETAMINOPHEN 325 MG TAB PO PRN (16:23)
[2023-12-17] MEDS: diphenhydrAMINE HCl 12.5 MG/5 ML UDC PO ONE (00:49)
[2023-12-17] MEDS: MELATONIN 3 MG TAB PO STA (02:17)
[2023-12-17 06:36] LABS: Hematocrit (blood only) 31.4 % (37.0-47.0); Hemoglobin 10.1 g/dl (12.0-16.0); Mean Corpuscular Hemoglobin 29.2 pg (25.0-34.0); Mean Corpuscular Hgb Conc 32.2 g/dL (32.0-36.0); Mean Corpuscular Volume 90.8 fL (80.0-100.0); Mean Platelet Volume 10.7 fL (9.4-12.4); Platelet Count 168 K/uL (130-400); RDW Coefficient of Variation 14.8 % (11.5-14.5); RDW Standard Deviation 49.1 fL (36.4-46.3); Red Blood Count 3.46 M/uL (4.20-5.40); White Blood Count 5.12 K/ul (4.8-10.8)
[2023-12-17 07:01] LABS: Calcium 9.5 mg/dl (8.6-10.3); Creatinine Clr Calc Pharmacy 24.1 ml/min; Magnesium 1.9 mg/dl (1.7-2.4); Phosphorus 3.8 mg/dl (2.5-4.9); Potassium 4.2 mmol/L (3.5-5.1)
[2023-12-17] MEDS: PROMETHAZINE 6.25 MG/50.25 ML BAG IV PRN (11:27)
--- NOTE | 2023-12-17 17:17 | Hospitalist Progress Note ---
Date of Service December 17, 2023 Assessment & Plan (1) Confusion: Plan: 85-year-old female with past medical history significant for hypothyroidism, history of hypercalcemia, hiatal hernia, thoracic aortic ectasia, chronic diastolic CHF, CAD status post CABG, hypertension, chronic atrial fibrillation, mild aortic stenosis, GERD, CKD stage III osteoarthritis depression, insomnia, mixed incontinence urge and stress currently living at [facility] was b rought in because of confusion. Patient was recently in the hospital for acute UTI and fevers. Had 7-day course of IV antibiotics during the hospital stay she was also found to have Mobitz type I heart block and cardiology reduce metoprolol dose to 37.5 mg and also found to have iron deficiency anemia , did okay and was discharged [facility] .Currently at [facility]. Patient seem to have forgot medications and some confusion at [facility] home and brought in here. Patient agrees that she forgot medication for 3 days. But she refuses that she overdosed on any medications. Currently alert and oriented x 3. Able to give her history. Patient says she is eating and drinking okay. Ambulates without support. Denies any fevers. Having headache for last few hours. No dizziness. No blurred vision. No runny nose or sore throat. No cough. No chest pain or shortness of breath ,no nausea,no abdominal pain. Normal bowel and bladder movements. Hemodynamics are okay. Confusion Currently alert and oriented x3 Seems forgot medications for few days at [facility]group home CT head unremarkable Chest x-ray unremarkable UA - negat. No leukocytosis Procalcitonin negative SARS-CoV-2, influenza A and B, RSV negative Overall normal labs on admission except for abnormal thyroid profile. Will monitor Abnormal thyroid profile TSH is low and free T4 is high They were normal last month Patient on Synthyroid 100 mcg daily Patient declines any overdose Will hold Synthyroid Repeated thyroid profile May need to reduce dose or discuss with endocrine Discussed w/ endocrine - cont. to hold for ~ 5 days then reduce dose to 75, follow up as outpt Chronic diastolic CHF She was on torsemide as needed last admit Per recent PCP note she is not taking it Will monitor CAD s/p CABG Hx of mobitz type I atrial fibrillation On metoprolol of which dose was reduced last admit On Eliquis and statin Seems losartan held because of hypotension last admission PCP started on a irbesartan Will monitor Hypertension On metoprolol and irbesartan Will monitor Was hypotensive intermittently last admission Nausea - now resolved - had persistent nausea - pt reports she could not eat anything day POA either as she did not feel well, but can't elaborate - she could not recall why she was brought in to the ED - KUB - Nonobstructive bowel gas pattern. - gentle IV NS, replace lytes as needed (Mag) - repeat troponin bit elevated, ECG obtained, Echo ordered and discussed w/ cardiology- Per cardiology Elevated troponin: Likely demand ischemia in the setting of significant h ypertension after not taking her medications for several days. Ischemic evaluation not necessary at this time. Dilated ascending aorta: Not fully visualized on today's echo, but similar to what was seen on previous echo. CT imaging on personal review also demonstrates dilated ascending aorta. Stable findings. No chest, back, or abdominal pain to suggest acute aortic pathology. Can continue beta-brendan. Optimize blood pressure control. Can be followed in the outpatient setting if applicable. Avoid strenuous lifting for which the Valsalva maneuver is required. -Hypomagnesemia, Mag replaced, cont. to monitor Lung nodules Needs follow-up GERD On Protonix Anemia Seems iron deficiency Hemoglobin 11.2 Follow-up with PCP CKD stage III Creatinine 1.1 We will follow labs Depression Insomnia Continue home medications DVT prophylaxis On Eliquis Full code Dispo - discussed w/ CM Admission and Anticipated Discharge Date Admission Date: December 13, 2023 Subjective Pt seen in follow up of weakness, confusion - not taking meds at personal group home After admission pt had persistent nausea, thankfully next day nausea has resolved She also could not walk on admission, now she is walking with PT Denies any fever, chills, denies chest pain, or shortness of breath, denies abd. pain, or nausea TSH low , discussed w/ endocrinology as below Infectious work up in ED - unrevealing, CT head negat. Pt remembered that her BP was very high and that's why she was sent to the ED. Per CM note, HH present and pt had chest pain and jaw pain and was trying to call 911 but instead kept calling 411, and her medications were incorrect and misplaced, therefore they sent her to the ED. Review of Systems Review of Systems: All systems reviewed & are unremarkable except as noted in Subjective Physical Exam Physical Exam: General- elderly F in NAD Head- atraumatic Eyes- PERRL. Neck- supple Lungs- clear to auscultation no wheezing or crackles Heart- S1, S2, irregular, + murmur Abdomen- normal bowel sounds, soft, nontender, no distension Extremities- trace pretibial edema, no erythema seen Neuro- alert, oriented x 3; PERRL, no facial palsy; no dysarthria; moves extremities. Skin- warm & dry Results & Data Results & Data Vital Signs (Past 12 Hours) Vital Signs Temp Pulse Pulse Resp BP BP Pulse Ox 12/17/23 15:57 84 12/17/23 15:49 36.6 C 70 18 128/80 97 12/17/23 11:38 36.3 C L 69 17 116/79 97 12/17/23 08:00 12/17/23 07:50 36.4 C L 68 18 149/84 H 98 12/17/23 07:00 60 O2 Del Method 12/17/23 15:57 12/17/23 15:49 Room Air 12/17/23 11:38 Room Air 12/17/23 08:00 Room Air 12/17/23 07:50 Room Air 12/17/23 07:00 Laboratory Results 12/17/23 Range/Units 05:50 WBC 5.12 (4.8-10.8) K/ul RBC 3.46 L (4.20-5.40) M/uL Hgb 10.1 L (12.0-16.0) g/dl Hct 31.4 L (37.0-47.0) % MCV 90.8 (80.0-100.0) fL MCH 29.2 (25.0-34.0) pg MCHC 32.2 (32.0-36.0) g/dL RDW Std Deviation 49.1 H (36.4-46.3) fL RDW Coeff of Howie 14.8 H (11.5-14.5) % Plt Count 168 (130-400) K/uL MPV 10.7 (9.4-12.4) fL Sodium 139 (136-145) mmol/L Potassium 4.2 (3.5-5.1) mmol/L Chloride 110 H (98-107) mmol/L Carbon Dioxide 26 (21-32) mmol/L Anion Gap 3 (3-11) BUN 29 H (6-23) mg/dl Creatinine 1.53 H (0.6-1.2) mg/dl Est Cr Clr Drug Dosing 24.1 ml/min eGFR 32.73 BUN/Creatinine Ratio 19.0 (10-20) Glucose 98 (70-99(Fasting)) mg/dl Calcium 9.5 (8.6-10.3) mg/dl Phosphorus 3.8 (2.5-4.9) mg/dl Magnesium 1.9 (1.7-2.4) mg/dl Medications Administered Current Inpatient Medications Acetaminophen (Acetaminophen 325 Mg Tab) 650 mg PO Q4H PRN PRN Reason: Pain Stop: 01/15/24 16:00 Last Admin: 12/17/23 15:35 Dose: 650 mg Apixaban (Apixaban 5 Mg Tablet) 5 mg PO BID [facility] Stop: 01/13/24 08:59 Last Admin: 12/17/23 08:36 Dose: 5 mg Buspirone HCl (Buspirone 5 Mg Tab) 10 mg PO BID [facility] Stop: 01/13/24 08:59 Last Admin: 12/17/23 08:35 Dose: 10 mg Calcitriol (Calcitriol 0.25 Mcg Capsule) 0.25 mcg PO [id number]@0900 [facility] Stop: 01/13/24 08:59 Last Admin: 12/17/23 08:37 Dose: 0.25 mcg Gabapentin (Gabapentin 300 Mg Cap) 300 mg PO TID [facility] Stop: 01/13/24 08:59 Last Admin: 12/17/23 14:04 Dose: 300 mg Promethazine HCl (Phenergan) 6.25 mg in 50.25 mls @ 201 mls/hr IV Q6H PRN PRN Reason: Nausea And Vomiting Stop: 01/13/24 15:21 Last Infusion: 12/17/23 11:53 Dose: Infused Losartan Potassium (Losartan Potassium 25 Mg Tab) 25 mg PO DAILY [facility] Stop: 01/13/24 08:59 Last Admin: 12/17/23 08:35 Dose: 25 mg Metoprolol Succinate (Metoprolol Succ 25mg Ext Rel Tab) 37.5 mg PO DAILY [facility] Stop: 01/13/24 08:59 Last Admin: 12/17/23 08:36 Dose: 37.5 mg Pantoprazole Sodium (Pantoprazole 40 Mg Tab) 40 mg PO DAILY [facility] Stop: 01/13/24 08:59 Last Admin: 12/17/23 08:35 Dose: 40 mg Rosuvastatin Calcium (Rosuvastatin Calcium 10 Mg Tab) 10 mg PO DAILY [facility] Stop: 01/13/24 08:59 Last Admin: 12/17/23 08:35 Dose: 10 mg Trazodone HCl (Trazodone Hcl 50 Mg Tab) 150 mg PO HS [facility] Stop: 01/13/24 20:59 Last Admin: 12/16/23 20:22 Dose: 150 mg
--- NOTE | 2023-12-18 16:12 | Hospitalist Progress Note ---
Date of Service December 18, 2023 Assessment & Plan (1) Confusion: Plan: 85-year-old female with past medical history significant for hypothyroidism, history of hypercalcemia, hiatal hernia, thoracic aortic ectasia, chronic diastolic CHF, CAD status post CABG, hypertension, chronic atrial fibrillation, mild aortic stenosis, GERD, CKD stage III osteoarthritis depression, insomnia, mixed incontinence urge and stress currently living at [facility] was b rought in because of confusion. Patient was recently in the hospital for acute UTI and fevers. Had 7-day course of IV antibiotics during the hospital stay she was also found to have Mobitz type I heart block and cardiology reduce metoprolol dose to 37.5 mg and also found to have iron deficiency anemia , did okay and was discharged to long term facility .Currently at [facility]. Patient seem to have forgot medications and some confusion at [facility] and brought in here. Patient agrees that she forgot medication for 3 days. But she refuses that she overdosed on any medications. Currently alert and oriented x 3. Able to give her history. Patient says she is eating and drinking okay. Ambulates without support. Denies any fevers. Having headache for last few hours. No dizziness. No blurred vision. No runny nose or sore throat. No cough. No chest pain or shortness of breath ,no nausea,no abdominal pain. Normal bowel and bladder movements. Hemodynamics are okay. Confusion Currently alert and oriented x3 Seems forgot medications for few days at [facility] CT head unremarkable Chest x-ray unremarkable UA - negat. No leukocytosis Procalcitonin negative SARS-CoV-2, influenza A and B, RSV negative Overall normal labs on admission except for abnormal thyroid profile. Will monitor Abnormal thyroid profile TSH is low and free T4 is high They were normal last month Patient on Synthyroid 100 mcg daily Patient declines any overdose Will hold Synthyroid Repeated thyroid profile May need to reduce dose or discuss with endocrine Discussed w/ endocrine - cont. to hold for ~ 5 days then reduce dose to 75, follow up as outpt Chronic diastolic CHF She was on torsemide as needed last admit Per recent PCP note she is not taking it Will monitor CAD s/p CABG Hx of mobitz type I atrial fibrillation On metoprolol of which dose was reduced last admit On Eliquis and statin Seems losartan held because of hypotension last admission PCP started on a irbesartan Will monitor Hypertension On metoprolol and irbesartan Will monitor Was hypotensive intermittently last admission Nausea - now resolved - had persistent nausea - pt reports she could not eat anything day POA either as she did not feel well, but can't elaborate - she could not recall why she was brought in to the ED - KUB - Nonobstructive bowel gas pattern. - gentle IV NS, replace lytes as needed (Mag) - repeat troponin bit elevated, ECG obtained, Echo ordered and discussed w/ cardiology- Per cardiology Elevated troponin: Likely demand ischemia in the setting of significant h ypertension after not taking her medications for several days. Ischemic evaluation not necessary at this time. Dilated ascending aorta: Not fully visualized on today's echo, but similar to what was seen on previous echo. CT imaging on personal review also demonstrates dilated ascending aorta. Stable findings. No chest, back, or abdominal pain to suggest acute aortic pathology. Can continue beta-brendan. Optimize blood pressure control. Can be followed in the outpatient setting if applicable. Avoid strenuous lifting for which the Valsalva maneuver is required. -Hypomagnesemia, Mag replaced, cont. to monitor Lung nodules Needs follow-up GERD On Protonix Anemia Seems iron deficiency Hemoglobin 11.2 Follow-up with PCP CKD stage III Creatinine 1.1 We will follow labs Depression Insomnia Continue home medications DVT prophylaxis On Eliquis Full code Dispo - discussed w/ CM Admission and Anticipated Discharge Date Admission Date: December 13, 2023 Subjective Pt seen in follow up of weakness, confusion - not taking meds at personal long[facility]term After admission pt had persistent nausea, next day nausea has resolved She also could not walk on admission, now she is walking with PT Denies any fever, chills, denies chest pain, or shortness of breath, denies abd. pain, or nausea TSH low , discussed w/ endocrinology as below Infectious work up in ED - unrevealing, CT head negat. Pt remembered that her BP was very high and that's why she was sent to the ED. Per CM note, HH present and pt had chest pain and jaw pain and was trying to call 911 but instead kept calling 411, and her medications were incorrect and misplaced, therefore they sent her to the ED. Discussed w/ CM - plan to DC tmrw Review of Systems Review of Systems: All systems reviewed & are unremarkable except as noted in Subjective Physical Exam Physical Exam: General- elderly F in NAD Head- atraumatic Eyes- PERRL. Neck- supple Lungs- clear to auscultation no wheezing or crackles Heart- S1, S2, irregular, + murmur Abdomen- normal bowel sounds, soft, nontender, no distension Extremities- trace pretibial edema, no erythema seen Neuro- alert, oriented x 3; PERRL, no facial palsy; no dysarthria; moves extremities. Skin- warm & dry Results & Data Results & Data Vital Signs (Past 12 Hours) Vital Signs Temp Pulse Pulse Resp BP BP Pulse Ox 12/18/23 15:18 36.7 C 72 14 118/72 96 12/18/23 12:43 36.5 C 72 14 110/72 98 12/18/23 10:44 36.4 C L 68 16 104/64 97 12/18/23 07:04 36.4 C L 60 14 116/63 97 12/18/23 07:02 63 12/18/23 04:26 36.4 C L 66 18 162/80 H 97 O2 Del Method 12/18/23 15:18 Room Air 12/18/23 12:43 Room Air 12/18/23 10:44 Room Air 12/18/23 07:04 Room Air 12/18/23 07:02 12/18/23 04:26 Room Air Medications Administered Current Inpatient Medications Acetaminophen (Acetaminophen 325 Mg Tab) 650 mg PO Q4H PRN PRN Reason: Pain Stop: 01/15/24 16:00 Last Admin: 12/17/23 15:35 Dose: 650 mg Apixaban (Apixaban 5 Mg Tablet) 5 mg PO BID YAN Stop: 01/13/24 08:59 Last Admin: 12/18/23 08:35 Dose: 5 mg Buspirone HCl (Buspirone 5 Mg Tab) 10 mg PO BID YAN Stop: 01/13/24 08:59 Last Admin: 12/18/23 08:35 Dose: 10 mg Calcitriol (Calcitriol 0.25 Mcg Capsule) 0.25 mcg PO MoWeFr@0900 YAN Stop: 01/13/24 08:59 Last Admin: 12/17/23 08:37 Dose: 0.25 mcg Gabapentin (Gabapentin 300 Mg Cap) 300 mg PO TID YAN Stop: 01/13/24 08:59 Last Admin: 12/18/23 14:19 Dose: 300 mg Promethazine HCl (Phenergan) 6.25 mg in 50.25 mls @ 201 mls/hr IV Q6H PRN PRN Reason: Nausea And Vomiting Stop: 01/13/24 15:21 Last Infusion: 12/17/23 11:53 Dose: Infused Losartan Potassium (Losartan Potassium 25 Mg Tab) 25 mg PO DAILY YAN Stop: 01/13/24 08:59 Last Admin: 12/18/23 08:35 Dose: 25 mg Metoprolol Succinate (Metoprolol Succ 25mg Ext Rel Tab) 37.5 mg PO DAILY YAN Stop: 01/13/24 08:59 Last Admin: 12/18/23 08:35 Dose: 37.5 mg Pantoprazole Sodium (Pantoprazole 40 Mg Tab) 40 mg PO DAILY YAN Stop: 01/13/24 08:59 Last Admin: 12/18/23 08:35 Dose: 40 mg Rosuvastatin Calcium (Rosuvastatin Calcium 10 Mg Tab) 10 mg PO DAILY YAN Stop: 01/13/24 08:59 Last Admin: 12/18/23 08:35 Dose: 10 mg Trazodone HCl (Trazodone Hcl 50 Mg Tab) 150 mg PO HS YAN Stop: 01/13/24 20:59 Last Admin: 12/17/23 22:23 Dose: 150 mg
[2023-12-19] MEDS: SODIUM CHLORIDE 0.9% 1,000 ML IV SCH ×2 (09:00→09:55)
[2023-12-19 10:36] LABS: BUN Creatinine Ratio 19.6 (10-20); Calcium 9.7 mg/dl (8.6-10.3); Creatinine Clr Calc Pharmacy 23.6 ml/min; Potassium 4.3 mmol/L (3.5-5.1)
--- NOTE | 2023-12-19 14:18 | Hospitalist Progress Note ---
Date of Service December 19, 2023 Assessment & Plan (1) Confusion: Plan: Pt is an 85-year-old female with past medical history significant for hypothyroidism, history of hypercalcemia, hiatal hernia, thoracic aortic ectasia, chronic diastolic CHF, CAD status post CABG, hypertension, chronic atrial fibrillation, mild aortic stenosis, GERD, CKD stage III osteoarthritis depression, insomnia, mixed incontinence urge and stress currently living [facility] who was brought in because of confusion. Patient was recently in the hospital for acute UTI and fevers. Had 7-day course of IV antibiotics during the hospital stay. She was also found to have Mobitz type I heart block and cardiology reduced metoprolol dose to 37.5mg. She was subsequently discharged to a residential facility. Currently living at a [facility] and it appears that she has not been taking her medications for a few days. Acute metabolic/toxic Encephalopathy Currently alert and oriented x3 Appears to have forgotten to take her medications for a few days at [facility]. CT head unremarkable Chest x-ray unremarkable UA unremarkable No leukocytosis Procalcitonin negative SARS-CoV-2, influenza A and B, RSV negative Overall normal labs on admission except for abnormal thyroid profile. Resolved currently Acute on chronic Kidney Disease Cr elevated acutely IV fluids and pt encouraged to take po Avoid nephrotoxic meds as able Continue to monitor Abnormal thyroid profile TSH is low and free T4 is high They were normal last month Patient on Synthroid 100 mcg daily Patient denies any overdose Initially Synthroid held on admission Previous provider Dr Phan discussed with Endocrinology who recommended the following: -cont. to hold for ~ 5 days then reduce dose to 75mcg, follow up as outpt Levothyroxine 75mcg started on 12/19/23 per Endocrinology recs. Close PCP followup after discharge Chronic diastolic CHF She was on torsemide as needed last admit Per recent PCP note she is not taking it Continue to monitor volume status CAD s/p CABG Hx of mobitz type I atrial fibrillation On metoprolol for which dose was reduced last admit On Eliquis and statin Appears losartan held because of hypotension last admission PCP started on irbesartan, on losartan formulary substitute here Continue home meds Continue to monitor Hypertension On metoprolol and irbesartan Will monitor Was hypotensive intermittently last admission Nausea - now resolved had persistent nausea pt reports she could not eat anything day POA either as she did not feel well, but can't elaborate she could not recall why she was brought in to the ED KUB - Nonobstructive bowel gas pattern. Gentle IV NS, replace lytes as needed (Mag) Elevated Troponin Demand Ischemia Dilated Ascending Aorta repeat troponin bit elevated but overall flat trend ECG obtained Echo ordered and discussed w/ [facility] cardiology [facility] consulted, appreciate recs "Elevated troponin: "Likely demand ischemia in the setting of significant hypertension after not taking her medications for several days. Ischemic evaluation not necessary at this time. Dilated ascending aorta: Not fully visualized on today's echo, but similar to what was seen on previous echo. CT imaging on personal review also demonstrates dilated ascending aorta. Stable findings. No chest, back, or abdominal pain to suggest acute aortic pathology. Can continue beta-brendan. Optimize blood pressure control. Can be followed in the outpatient setting if applicable. Avoid strenuous lifting for which the Valsalva maneuver is required." Hypomagnesemia Replete as needed Lung nodules PCP follow up GERD On Protonix Anemia Hemoglobin stable Follow-up with PCP CKD stage III Creatinine 1.1 Depression Insomnia Continue home medications Diet: DVT prophylaxis: On Eliquis Dispo: Back to [facility] once medically stable Admission and Anticipated Discharge Date Admission Date: December 13, 2023 Subjective patient was seen laying in bed in AM. Resting comfortably. Asking about her levothyroxine. Discussion of endocrine recommendations per previous provider. Patient states she has not been drinking fluids as she should. Encouraged to increase it intake given noted KIM on CKD. Discharge delayed today for IV fluids for noted KIM. Patient in agreement. Review of Systems Review of Systems: All systems reviewed & are unremarkable except as noted in Subjective Physical Exam Physical Exam: General: Alert, oriented. No acute distress Psych: Appropriate mood and affect Neuro: difficulty with movements in the bed HEENT: NC/AT CV: RRR Resp: Breath sounds clear bilaterally, no increased effort of breathing Abdomen:Soft, nontender Extremities: edema in lower extremities bilaterally. Results & Data Results & Data Vital Signs (Past 12 Hours) Vital Signs Temp Pulse Pulse Resp BP BP Pulse Ox 12/19/23 12:51 36.3 C L 65 16 112/71 96 12/19/23 08:12 36.4 C L 81 16 151/78 H 96 12/19/23 07:40 12/19/23 07:00 87 12/19/23 02:56 36.5 C 72 18 137/73 94 O2 Del Method 12/19/23 12:51 Room Air 12/19/23 08:12 Room Air 12/19/23 07:40 Room Air 12/19/23 07:00 12/19/23 02:56 Room Air Diagnostic Findings Chest X-Ray 12/13/23 18:28 SINGLE VIEW CHEST CLINICAL HISTORY: Generalized weakness. FINDINGS: An AP, portable, upright chest radiograph is compared to chest x-ray and chest CT dated 11/03/2023. The patient is status post midline sternotomy. The heart is enlarged and noting atherosclerotic calcification of the thoracic aorta. The pulmonary vasculature is noncongested. A hiatal hernia is noted. Chronic cortical thickening is similar to previous. There is mild bibasilar atelectasis. The lungs and pleural spaces are otherwise clear. No pneumothorax is seen. The the skeletal structures are osteopenic. There are chronic/healed right-sided rib fractures. Bilateral shoulder arthroplasties are in place. IMPRESSION: 1. Cardiomegaly with no active disease in the chest. 2. Hiatal hernia. ACT 112: Negative or not required by law. Electronically signed by: Avel Calero M.D. 12/13/2023 7:[address] 12/13/23 18:29 CT SCAN OF THE BRAIN WITHOUT IV CONTRAST CLINICAL HISTORY: Change in mental status. COMPARISON STUDY: CT of the brain dated 07/16/2022. TECHNIQUE: Unenhanced axial CT scan of the brain is performed from the vertex to the skull base. A dose lowering technique was utilized adhering to the principles of ALARA. CT DOSE: 625.8 mGy.cm FINDINGS: Brain parenchyma: There is age-related involutional change noting moderate subcortical and periventricular microangiopathic disease. There is no hemorrhage, mass effect, or evidence of acute territorial ischemia by CT criteria. Rashid-white matter differentiation is preserved. No extra-axial fluid collection is seen. Ventricles, sulci, cisterns: Prominent secondary to involutional change. Intracranial vasculature: There is atherosclerotic calcification of the cavernous carotid and vertebral arteries. Calvarium: Unremarkable. Sinuses and mastoids: The visualized paranasal sinuses are clear. The mastoid air cells are well pneumatized. Orbits: The bony orbits are grossly intact. There are bilateral ocular lens implants. IMPRESSION: There is no hemorrhage, mass effect, or evidence of acute territorial ischemia by CT criteria. ACT 112: Negative or not required by law. Electronically signed by: Avel Calero M.D. 12/13/2023 6:50 PM KUB X-Ray 12/14/23 08:19 XR KUB/Abdomen 1 view CLINICAL HISTORY: ABHILASH lemus TECHNIQUE: 1 view of the abdomen was obtained. Comparison: Comparison is made to abdomen radiographs 07/20/2022 FINDINGS: Lung bases are unremarkable. Degenerative changes are seen in the visualized skeleton. Bilateral hip arthroplasties are seen. The bowel gas pattern is nonobstructive. Small stool burden is seen. IMPRESSION: Nonobstructive bowel gas pattern. ACT 112: Negative or not required by law. Electronically signed by: Heath Rockwell M.D. 12/14/2023 8:56 AM
[2023-12-19] MEDS: MELATONIN 3 MG TAB PO PRN (23:02)
[2023-12-20] MEDS: LEVOTHYROXINE SODIUM 75 MCG TABLET PO SCH (05:38)
[2023-12-20 06:47] LABS: Hematocrit (blood only) 30.8 % (37.0-47.0); Hemoglobin 9.8 g/dl (12.0-16.0); Mean Corpuscular Hemoglobin 28.8 pg (25.0-34.0); Mean Corpuscular Hgb Conc 31.8 g/dL (32.0-36.0); Mean Corpuscular Volume 90.6 fL (80.0-100.0); Mean Platelet Volume 10.2 fL (9.4-12.4); Platelet Count 167 K/uL (130-400); RDW Coefficient of Variation 14.6 % (11.5-14.5)
[2023-12-20 07:19] LABS: BUN Creatinine Ratio 22.6 (10-20); Calcium 9.6 mg/dl (8.6-10.3); Creatinine Clr Calc Pharmacy 30.2 ml/min; Magnesium 1.9 mg/dl (1.7-2.4); Phosphorus 3.6 mg/dl (2.5-4.9); Potassium 4.5 mmol/L (3.5-5.1)
[2023-12-20] MEDS: SODIUM CHLORIDE 0.9% 1,000 ML IV SCH (09:52)
--- NOTE | 2023-12-20 10:54 | Discharge Summary ---
Discharge Summary Date of Service December 20, 2023 Principal Dx & Hospital Course #1 = Principal Diagnosis (1) Confusion: Plan Pt is an 85-year-old female with past medical history significant for hypothyroidism, history of hypercalcemia, hiatal hernia, thoracic aortic ectasia, chronic diastolic CHF, CAD status post CABG, hypertension, chronic atrial fibrillation, mild aortic stenosis, GERD, CKD stage III osteoarthritis depression, insomnia, mixed incontinence urge and stress currently living at personal[facility] who was brought in because of confusion. Patient was recently in the hospital for acute UTI and fevers. Had 7-day course of IV antibiotics during the hospital stay. She was also found to have Mobitz type I heart block and cardiology reduced metoprolol dose to 37.5mg. She was subsequently discharged to a care home facility. Currently living at a personal-usp and it appears that she has not been taking her medications for a few days. Acute metabolic/toxic Encephalopathy Currently alert and oriented x3 Appears to have forgotten to take her medications for a few days at personal[facility]. CT head unremarkable Chest x-ray unremarkable UA unremarkable No leukocytosis Procalcitonin negative SARS-CoV-2, influenza A and B, RSV negative Overall normal labs on admission except for abnormal thyroid profile. Resolved currently Acute on chronic Kidney Disease Cr elevated acutely with peak Cr of 1.5 IV fluids and pt encouraged to take po hydration Avoid nephrotoxic meds as able Continue to monitor Improving Abnormal thyroid profile TSH is low and free T4 is high They were normal last month Patient on Synthroid 100 mcg daily Patient denies any overdose Initially Synthroid held on admission Previous provider Dr Phan discussed with Endocrinology who recommended the following: -cont. to hold for ~ 5 days then reduce dose to 75mcg, follow up as outpt Levothyroxine 75mcg started on 12/19/23 per Endocrinology recs. Close PCP followup after discharge Chronic diastolic CHF She was on torsemide as needed last admit Per recent PCP note she is not taking it Continue to monitor volume status CAD s/p CABG Hx of mobitz type I atrial fibrillation On metoprolol for which dose was reduced last admit to 37.5mg daily Per [facility] Cardiology Dr Noah Adams during last admission, "Asymptomatic episodes of Mobitz type I second-degree AV block with brief pauses, would recommend reducing metoprolol succinate from 50 mg daily to 37.5 mg daily, reluctant to reduce too far given her history of atrial fibrillation." On Eliquis and statin as well Appears losartan held because of hypotension last admission PCP started on irbesartan, on losartan formulary substitute here Continue home meds Continue to monitor Hypertension On metoprolol and irbesartan Will monitor Was hypotensive intermittently last admission Nausea - now resolved had persistent nausea pt reports she could not eat anything day POA either as she did not feel well, but can't elaborate she could not recall why she was brought in to the ED KUB - Nonobstructive bowel gas pattern. Gentle IV NS, replace lytes as needed (Mag) Elevated Troponin Demand Ischemia Dilated Ascending Aorta repeat troponin bit elevated but overall flat trend ECG obtained Echo ordered and discussed w/ [facility]ology [facility] consulted, appreciate recs "Elevated troponin: "Likely demand ischemia in the setting of significant hypertension after not taking her medications for several days. Ischemic evaluation not necessary at this time. Dilated ascending aorta: Not fully visualized on today's echo, but similar to what was seen on previous echo. CT imaging on personal review also demonstrates dilated ascending aorta. Stable findings. No chest, back, or abdominal pain to suggest acute aortic pathology. Can continue beta-brendan. Optimize blood pressure control. Can be followed in the outpatient setting if applicable. Avoid strenuous lifting for which the Valsalva maneuver is required." Hypomagnesemia Replete as needed Lung nodules PCP follow up GERD On Protonix Anemia Hemoglobin stable Follow-up with PCP Depression Insomnia Continue home medications Diet: DVT prophylaxis: On Eliquis Dispo: Back to [facility] once medically stable Notes For Next Care Provider Please repeat BMP at pcp followup. Cr decreased from high of 1.53 to 1.24 on discharge. Please ensure improvement/stability. Per Endocrinology, re-start home levothyroxine at 75mcg. Pt will need thyroid function tests and further evaluation and management of thyroid levels and levothyroxine dose adjustment as needed. Pt occasionally in Mobitz 1 with HR ranges from 50s-70s. On decreased dose of metoprolol succinate 37.5mg daily. Per [facility] Cardiology Dr Noah Adams during last admission, "Asymptomatic episodes of Mobitz type I second-degree AV block with brief pauses, would recommend reducing metoprolol succinate from 50 mg daily to 37.5 mg daily, reluctant to reduce too far given her history of atrial fibrillation." Please ensure close Cardiology follow up after discharge. Medication Changes From Visit Levothyroxine 75mcg Admission HPI Per Admitting Provider 85-year-old female with past medical history significant for hypothyroidism, history of hypercalcemia, hiatal hernia, thoracic aortic ectasia, chronic diastolic CHF, CAD status post CABG, hypertension, chronic atrial fibrillation, mild aortic stenosis, GERD, CKD stage III osteoarthritis depression, insomnia, mixed incontinence urge and stress currently living at personal[facility] was brought in because of confusion. Patient was recently in the hospital for acute UTI and fevers. Had 7-day course of IV antibiotics during the hospital stay ,she was also found to have Mobitz type I heart block and cardiology reduce metoprolol dose to 37.5 mg and also found to have iron deficiency anemia , did okay and was discharged to care home facility .Currently at [facility]. Patient seem to have forgot medications and some confusion at [facility] and brought in here. Patient agrees that she forgot medication for 3 days. But she refuses that she overdosed on any medications. Currently alert and oriented x 3. Able to give her history. Patient says she is eating and drinking okay. Ambulates without support. Denies any fevers. Having headache for last few hours. No dizziness. No blurred vision. No runny nose or sore throat. No cough. No chest pain or shortness of breath ,no nausea,no abdominal pain. Normal bowel and bladder movements. Hemodynamics are okay. Past medical history. As mentioned above Past surgical history. Liposuction. CABG. Colonoscopy. EGD. Reconstruction of the bilateral shoulder joint. Cataracts. Tonsillectomy. Total abdominal hysterectomy with removal of tubes. Total hip replacement Social history. . No smoking. Alcohol occasional. No drug use. Family history. Father had allergies. Mother had CHF. Brother had CAD, dementia. Admission Exam Per Admitting Provider General- Not in distress Head- atraumatic Eyes- PERRL. ENT- oropharynx clear Neck- supple, no JVD. Lungs- clear to auscultation no wheezing or crackles Heart- regular rhythm; no murmur, no gallop Abdomen- normal bowel sounds, soft, nontender, no distension Extremities- trace pretibial edema, no erythema seen Neuro- alert, oriented x 3; PERRL, no facial palsy; no dysarthria; moves extremities. Skin- warm & dry Discharge Exam General: Alert, oriented. No acute distress Psych: Appropriate mood and affect Neuro: difficulty with movements in the bed HEENT: NC/AT CV: RRR Resp: Breath sounds clear bilaterally, no increased effort of breathing Abdomen:Soft, nontender Extremities: edema in lower extremities bilaterally. Updated Medication List Medication Instructions Recorded Confirmed Type apixaban 5 mg tablet (Eliquis) 5 mg PO BID 12/13/23 12/13/23 History buspirone 10 mg tablet 10 mg PO BID 12/13/23 12/13/23 History calcitriol 0.25 mcg capsule 0.25 mcg PO UD 12/13/23 12/13/23 History gabapentin 300 mg capsule 300 mg PO TID 12/13/23 12/13/23 History irbesartan 75 mg tablet 75 mg PO DAILY 12/13/23 12/13/23 History levothyroxine 100 mcg tablet 100 mcg PO DAILY 12/13/23 12/13/23 History loperamide 2 mg capsule 2 mg PO Q6H PRN Diarrhea 12/13/23 12/13/23 History metoprolol succinate 25 mg 37.5 mg PO DAILY 12/13/23 12/13/23 History tablet,extended release 24 hr pantoprazole 40 mg tablet,delayed 40 mg PO DAILY 12/13/23 12/13/23 History release rosuvastatin 10 mg tablet 10 mg PO DAILY 12/13/23 12/13/23 History trazodone 150 mg tablet 150 mg PO HS 12/13/23 12/13/23 History levothyroxine 75 mcg tablet 75 mcg PO DAILYBB #30 tabs 12/20/23 Rx (Synthroid) Hospital Stay Data Consultations 12/13/23 21:27 ED Decision to Admit Stat 12/14/23 17:34 Consult Cardiology Routine Diagnostic Imagining Performed 12/13/23 18:29 CT head/brain wo con Stat Chest X-Ray 12/13/23 18:28 SINGLE VIEW CHEST CLINICAL HISTORY: Generalized weakness. FINDINGS: An AP, portable, upright chest radiograph is compared to chest x-ray and chest CT dated 11/03/2023. The patient is status post midline sternotomy. The heart is enlarged and noting atherosclerotic calcification of the thoracic aorta. The pulmonary vasculature is noncongested. A hiatal hernia is noted. Chronic cortical thickening is similar to previous. There is mild bibasilar atelectasis. The lungs and pleural spaces are otherwise clear. No pneumothorax is seen. The the skeletal structures are osteopenic. There are chronic/healed right-sided rib fractures. Bilateral shoulder arthroplasties are in place. IMPRESSION: 1. Cardiomegaly with no active disease in the chest. 2. Hiatal hernia. ACT 112: Negative or not required by law. Electronically signed by: Avel Calero M.D. 12/13/2023 7:[address] 12/13/23 18:29 CT SCAN OF THE BRAIN WITHOUT IV CONTRAST CLINICAL HISTORY: Change in mental status. COMPARISON STUDY: CT of the brain dated 07/16/2022. TECHNIQUE: Unenhanced axial CT scan of the brain is performed from the vertex to the skull base. A dose lowering technique was utilized adhering to the principles of ALARA. CT DOSE: 625.8 mGy.cm FINDINGS: Brain parenchyma: There is age-related involutional change noting moderate subcortical and periventricular microangiopathic disease. There is no hemorrhage, mass effect, or evidence of acute territorial ischemia by CT criteria. Rashid-white matter differentiation is preserved. No extra-axial fluid collection is seen. Ventricles, sulci, cisterns: Prominent secondary to involutional change. Intracranial vasculature: There is atherosclerotic calcification of the cavernous carotid and vertebral arteries. Calvarium: Unremarkable. Sinuses and mastoids: The visualized paranasal sinuses are clear. The mastoid air cells are well pneumatized. Orbits: The bony orbits are grossly intact. There are bilateral ocular lens implants. IMPRESSION: There is no hemorrhage, mass effect, or evidence of acute territorial ischemia by CT criteria. ACT 112: Negative or not required by law. Electronically signed by: Avel Calero M.D. 12/13/2023 6:50 PM KUB X-Ray 12/14/23 08:19 XR KUB/Abdomen 1 view CLINICAL HISTORY: [email or web address] TECHNIQUE: 1 view of the abdomen was obtained. Comparison: Comparison is made to abdomen radiographs 07/20/2022 FINDINGS: Lung bases are unremarkable. Degenerative changes are seen in the visualized skeleton. Bilateral hip arthroplasties are seen. The bowel gas pattern is nonobstructive. Small stool burden is seen. IMPRESSION: Nonobstructive bowel gas pattern. ACT 112: Negative or not required by law. Electronically signed by: Heath Rockwell M.D. 12/14/2023 8:56 AM Discharge Instructions Given to Patient (Per Discharging Provider) Du Kenny were admitted and treated for confusion when you first came in. This was likely related to abruptly stopping your medications and not taking it from some time. Your symptoms improved. Your thyroid levels were also appeared abnormal. Your case was discussed with the cook cashier food prep who recommended restarting you home levothyroxine at the lower dose of 75 mcg. Please continue with this dose until you follow-up with your primary care provider for further evaluation and management. Your kidney function was also a bit abnormal. It improved after IV fluids but will need continued follow-up with your primary care provider after discharge. Please continue to try to stay hydrated at home. And please continue to take your medications as prescribed. Please also keep close follow up with your primary care provider after discharge. Please do not hesitate to come back to the emergency room if your symptoms worsen or return. It was a pleasure taking care of you while you were here. Total Time Total Time Spent Total Time Spent (In Minutes): 65
--- NOTE | 2023-12-20 11:39 | Hospitalist Progress Note ---
Date of Service December 20, 2023 Assessment & Plan (1) Confusion: Plan Pt is an 85-year-old female with past medical history significant for hypothyroidism, history of hypercalcemia, hiatal hernia, thoracic aortic ectasia, chronic diastolic CHF, CAD status post CABG, hypertension, chronic atrial fibrillation, mild aortic stenosis, GERD, CKD stage III osteoarthritis depression, insomnia, mixed incontinence urge and stress currently living at [facility] nursing who was brought in because of confusion. Patient was recently in the hospital for acute UTI and fevers. Had 7-day course of IV antibiotics during the hospital stay. She was also found to have Mobitz type I heart block and cardiology reduced metoprolol dose to 37.5mg. She was subsequently discharged to a [facility] facility. Currently living at a personal[facility]skilled nursing and it appears that she has not been taking her medications for a few days. Acute metabolic/toxic Encephalopathy Currently alert and oriented x3 Appears to have forgotten to take her medications for a few days at personal[facility]. CT head unremarkable Chest x-ray unremarkable UA unremarkable No leukocytosis Procalcitonin negative SARS-CoV-2, influenza A and B, RSV negative Overall normal labs on admission except for abnormal thyroid profile. Resolved currently Acute on chronic Kidney Disease Cr elevated acutely with peak Cr of 1.5 IV fluids and pt encouraged to take po hydration Avoid nephrotoxic meds as able Continue to monitor Improving Abnormal thyroid profile TSH is low and free T4 is high They were normal last month Patient on Synthroid 100 mcg daily Patient denies any overdose Initially Synthroid held on admission Previous provider Dr Phan discussed with Endocrinology who recommended the following: -cont. to hold for ~ 5 days then reduce dose to 75mcg, follow up as outpt Levothyroxine 75mcg started on 12/19/23 per Endocrinology recs. Close PCP followup after discharge Chronic diastolic CHF She was on torsemide as needed last admit Per recent PCP note she is not taking it Continue to monitor volume status CAD s/p CABG Hx of mobitz type I atrial fibrillation On metoprolol for which dose was reduced last admit to 37.5mg daily Per [facility] Cardiology Dr Noah Adams during last admission, "Asymptomatic episodes of Mobitz type I second-degree AV block with brief pauses, would recommend reducing metoprolol succinate from 50 mg daily to 37.5 mg daily, reluctant to reduce too far given her history of atrial fibrillation." On Eliquis and statin as well Appears losartan held because of hypotension last admission PCP started on irbesartan, on losartan formulary substitute here Continue home meds Continue to monitor Hypertension On metoprolol and irbesartan Will monitor Was hypotensive intermittently last admission Nausea - now resolved had persistent nausea pt reports she could not eat anything day POA either as she did not feel well, but can't elaborate she could not recall why she was brought in to the ED KUB - Nonobstructive bowel gas pattern. Gentle IV NS, replace lytes as needed (Mag) Elevated Troponin Demand Ischemia Dilated Ascending Aorta repeat troponin bit elevated but overall flat trend ECG obtained Echo ordered and discussed w/ [facility]ology [facility] consulted, appreciate recs "Elevated troponin: "Likely demand ischemia in the setting of significant hypertension after not taking her medications for several days. Ischemic evaluation not necessary at this time. Dilated ascending aorta: Not fully visualized on today's echo, but similar to what was seen on previous echo. CT imaging on personal review also demonstrates dilated ascending aorta. Stable findings. No chest, back, or abdominal pain to suggest acute aortic pathology. Can continue beta-brendan. Optimize blood pressure control. Can be followed in the outpatient setting if applicable. Avoid strenuous lifting for which the Valsalva maneuver is required." Hypomagnesemia Replete as needed Lung nodules PCP follow up GERD On Protonix Anemia Hemoglobin stable Follow-up with PCP Depression Insomnia Continue home medications Diet:HH DVT prophylaxis: On Eliquis Dispo: Back to [facility] once medically stable Admission and Anticipated Discharge Date Admission Date: December 13, 2023 Subjective Patient was seen initially in the a.m. laying comfortably in bed. Discussion of discharge today and close PCP follow-up for her improving KIM. Patient was in agreement with the plan. Later called back to bedside by nursing as patient was stating that she is concerned about not having groceries at home and would like to delay her disc harge until tomorrow. States she lives alone. Patient with similar requests or complaints on prior admissions at the time of discharge she is agreeable to discharge tomorrow after she gets her groceries set up. Review of Systems Review of Systems: All systems reviewed & are unremarkable except as noted in Subjective Physical Exam Physical Exam: General: Alert, oriented. No acute distress Psych: Appropriate mood and affect Neuro: difficulty with movements in the bed HEENT: NC/AT CV: RRR Resp: Breath sounds clear bilaterally, no increased effort of breathing Abdomen:Soft, nontender Extremities: edema in lower extremities bilaterally. Results & Data Results & Data Vital Signs (Past 12 Hours) Vital Signs Temp Pulse Pulse Resp BP BP Pulse Ox 12/20/23 07:47 36.5 C 61 18 154/84 H 96 12/20/23 03:46 36.3 C L 58 L 20 127/65 96 12/20/23 01:04 79 12/19/23 23:45 36.3 C L 70 18 115/71 97 O2 Del Method 12/20/23 07:47 Room Air 12/20/23 03:46 Room Air 12/20/23 01:04 12/19/23 23:45 Room Air Diagnostic Findings Chest X-Ray 12/13/23 18:28 SINGLE VIEW CHEST CLINICAL HISTORY: Generalized weakness. FINDINGS: An AP, portable, upright chest radiograph is compared to chest x-ray and chest CT dated 11/03/2023. The patient is status post midline sternotomy. The heart is enlarged and noting atherosclerotic calcification of the thoracic aorta. The pulmonary vasculature is noncongested. A hiatal hernia is noted. Chronic cortical thickening is similar to previous. There is mild bibasilar atelectasis. The lungs and pleural spaces are otherwise clear. No pneumothorax is seen. The the skeletal structures are osteopenic. There are chronic/healed right-sided rib fractures. Bilateral shoulder arthroplasties are in place. IMPRESSION: 1. Cardiomegaly with no active disease in the chest. 2. Hiatal hernia. ACT 112: Negative or not required by law. Electronically signed by: Avel Calero M.D. 12/13/2023 7:[address] 12/13/23 18:29 CT SCAN OF THE BRAIN WITHOUT IV CONTRAST CLINICAL HISTORY: Change in mental status. COMPARISON STUDY: CT of the brain dated 07/16/2022. TECHNIQUE: Unenhanced axial CT scan of the brain is performed from the vertex to the skull base. A dose lowering technique was utilized adhering to the principles of ALARA. CT DOSE: 625.8 mGy.cm FINDINGS: Brain parenchyma: There is age-related involutional change noting moderate subcortical and periventricular microangiopathic disease. There is no hemorrhage, mass effect, or evidence of acute territorial ischemia by CT criteria. Rashid-white matter differentiation is preserved. No extra-axial fluid collection is seen. Ventricles, sulci, cisterns: Prominent secondary to involutional change. Intracranial vasculature: There is atherosclerotic calcification of the cavernous carotid and vertebral arteries. Calvarium: Unremarkable. Sinuses and mastoids: The visualized paranasal sinuses are clear. The mastoid ai r cells are well pneumatized. Orbits: The bony orbits are grossly intact. There are bilateral ocular lens implants. IMPRESSION: There is no hemorrhage, mass effect, or evidence of acute territor ial ischemia by CT criteria. ACT 112: Negative or not required by law. Electronically signed by: Avel Calero M.D. 12/13/2023 6:50 PM KUB X-Ray 12/14/23 08:19 XR KUB/Abdomen 1 view CLINICAL HISTORY: [email or web address] TECHNIQUE: 1 view of the abdomen was obtained. Comparison: Comparison is made to abdomen radiographs 07/20/2022 FINDINGS: Lung bases are unremarkable. Degenerative changes are seen in the visualized skeleton. Bilateral hip arthroplasties are seen. The bowel gas pattern is nonobstructive. Small stool burden is seen. IMPRESSION: Nonobstructive bowel gas pattern. ACT 112: Negative or not required by law. Electronically signed by: Heath Rockwell M.D. 12/14/2023 8:56 AM
[2023-12-21 06:41] LABS: Hematocrit (blood only) 30.3 % (37.0-47.0); Hemoglobin 9.8 g/dl (12.0-16.0); Mean Corpuscular Hemoglobin 29.1 pg (25.0-34.0); Mean Corpuscular Hgb Conc 32.3 g/dL (32.0-36.0); Mean Corpuscular Volume 89.9 fL (80.0-100.0); Mean Platelet Volume 10.5 fL (9.4-12.4); Platelet Count 179 K/uL (130-400); RDW Coefficient of Variation 14.6 % (11.5-14.5); RDW Standard Deviation 48.1 fL (36.4-46.3); Red Blood Count 3.37 M/uL (4.20-5.40); White Blood Count 4.57 K/ul (4.8-10.8)
[2023-12-21 07:11] LABS: BUN Creatinine Ratio 20.5 (10-20); Calcium 9.6 mg/dl (8.6-10.3); Creatinine Clr Calc Pharmacy 32.4 ml/min; Magnesium 1.8 mg/dl (1.7-2.4); Phosphorus 3.2 mg/dl (2.5-4.9); Potassium 4.2 mmol/L (3.5-5.1)
--- NOTE | 2023-12-21 10:55 | Discharge Summary ---
Discharge Summary Date of Service December 21, 2023 Principal Dx & Hospital Course #1 = Principal Diagnosis (1) Confusion: Plan Pt is an 85-year-old female with past medical history significant for hypothyroidism, history of hypercalcemia, hiatal hernia, thoracic aortic ectasia, chronic diastolic CHF, CAD status post CABG, hypertension, chronic atrial fibrillation, mild aortic stenosis, GERD, CKD stage III osteoarthritis depression, insomnia, mixed incontinence urge and stress currently living at personal-skilled nursing who was brought in because of confusion. Patient was recently in the hospital for acute UTI and fevers. Had 7-day course of IV antibiotics during the hospital stay. She was also found to have Mobitz type I heart block and cardiology reduced metoprolol dose to 37.5mg. [facility] Currently living at a personal-skilled nursing and it appears that she has not been taking her medications for a few days. Acute metabolic/toxic Encephalopathy Currently alert and oriented x3 Appears to have forgotten to take her medications for a few days at personal- skilled nursing. CT head unremarkable Chest x-ray unremarkable UA unremarkable No leukocytosis Procalcitonin negative SARS-CoV-2, influenza A and B, RSV negative Overall normal labs on admission except for abnormal thyroid profile. Resolved currently PCP follow up Acute on chronic Kidney Disease Cr elevated acutely with peak Cr of 1.5 IV fluids and pt encouraged to take po hydration Avoid nephrotoxic meds as able Continue to monitor Improved to normal on discharge, 1.17 PCP followup Abnormal thyroid profile TSH is low and free T4 is high They were normal last month Patient on Synthroid 100 mcg daily Patient denies any overdose Initially Synthroid held on admission Previous provider Dr Phan discussed with Endocrinology who recommended the following: -cont. to hold for ~ 5 days then reduce dose to 75mcg, follow up as outpt Levothyroxine 75mcg started on 12/19/23 per Endocrinology recs. Close PCP followup after discharge Chronic diastolic CHF She was on torsemide as needed last admit Per recent PCP note she is not taking it Continue to monitor volume status PCP followup CAD s/p CABG Hx of mobitz type I atrial fibrillation On metoprolol for which dose was reduced last admit to 37.5mg daily Per [facility] Cardiology Dr Noah Adams during last admission, "Asymptomatic episodes of Mobitz type I second-degree AV block with brief pauses, would recommend reducing metoprolol succinate from 50 mg daily to 37.5 mg daily, reluctant to reduce too far given her history of atrial fibrillation." On Eliquis and statin as well Appears losartan held because of hypotension last admission PCP started on irbesartan, on losartan formulary substitute here Continue home meds PCP followup Hypertension On metoprolol and irbesartan Will monitor Was hypotensive intermittently last admission Nausea - now resolved had persistent nausea pt reports she could not eat anything day POA either as she did not feel well, but can't elaborate she could not recall why she was brought in to the ED KUB - Nonobstructive bowel gas pattern. Gentle IV NS, replace lytes as needed (Mag) Elevated Troponin Demand Ischemia Dilated Ascending Aorta repeat troponin bit elevated but overall flat trend ECG obtained Echo ordered and discussed w/ [facility] consulted, appreciate recs "Elevated troponin: "Likely demand ischemia in the setting of significant hypertension after not taking her medications for several days. Ischemic evaluation not necessary at this time. Dilated ascending aorta: Not fully visualized on today's echo, but similar to what was seen on previous echo. CT imaging on personal review also demonstrates dilated ascending aorta. Stable findings. No chest, back, or abdominal pain to suggest acute aortic pathology. Can continue beta-brendan. Optimize blood pressure control. Can be followed in the outpatient setting if applicable. Avoid strenuous lifting for which the Valsalva maneuver is required." Hypomagnesemia Replete as needed Lung nodules PCP follow up GERD On Protonix Anemia Hemoglobin stable Follow-up with PCP Depression Insomnia Continue home medications Diet: DVT prophylaxis: On Eliquis Dispo: Back to [facility] once medically stable Notes For Next Care Provider Please repeat BMP at pcp followup. Cr decreased from high of 1.53 to 1.17 on discharge. Please ensure improved stability. Per Endocrinology, re-start home levothyroxine at 75mcg. Pt will need thyroid function tests and further evaluation and management of thyroid levels and levothyroxine dose adjustment as needed. Pt occasionally in Mobitz 1 with HR ranges from 50s-70s. On decreased dose of metoprolol succinate 37.5mg daily. Per [facility] Cardiology Dr Noah Adams during last admission, "Asymptomatic episodes of Mobitz type I second-degree AV block with brief pauses, would recommend reducing metoprolol succinate from 50 mg daily to 37.5 mg daily, reluctant to reduce too far given her history of atrial fibrillation." Please ensure close Cardiology follow up after discharge. Medication Changes From Visit levothyroxine 75mcg daily per endocrinology, titrate up as needed Admission HPI Per Admitting Provider 85-year-old female with past medical history significant for hypothyroidism, history of hypercalcemia, hiatal hernia, thoracic aortic ectasia, chronic diastolic CHF, CAD status post CABG, hypertension, chronic atrial fibrillation, mild aortic stenosis, GERD, CKD stage III osteoarthritis depression, insomnia, mixed incontinence urge and stress currently living at personal-skilled nursing was brought in because of confusion. Patient was recently in the hospital for acute UTI and fevers. Had 7-day course of IV antibiotics during the hospital stay ,she was also found to have Mobitz type I heart block and cardiology reduce metoprolol dose to 37.5 mg and also found to have iron deficiency anemia , did okay and was [facility] to [facility] .Currently at personal-skilled nursing. Patient seem to have forgot medications and some confusion at personal- skilled nursing and brought in here. Patient agrees that she forgot medication for 3 days. But she refuses that she overdosed on any medications. Currently alert and oriented x 3. Able to give her history. Patient says she is eating and drinking okay. Ambulates without support. Denies any fevers. Having headache for last few hours. No dizziness. No blurred vision. No runny nose or sore throat. No cough. No chest pain or shortness of breath ,no nausea,no abdominal pain. Normal bowel and bladder movements. Hemodynamics are okay. Past medical history. As mentioned above Past surgical history. Liposuction. CABG. Colonoscopy. EGD. Reconstruction of the bilateral shoulder joint. Cataracts. Tonsillectomy. Total abdominal hysterectomy with removal of tubes. Total hip replacement Social history. . No smoking. Alcohol occasional. No drug use. Family history. Father had allergies. Mother had CHF. Brother had CAD, dementia. Admission Exam Per Admitting Provider General- Not in distress Head- atraumatic Eyes- PERRL. ENT- oropharynx clear Neck- supple, no JVD. Lungs- clear to auscultation no wheezing or crackles Heart- regular rhythm; no murmur, no gallop Abdomen- normal bowel sounds, soft, nontender, no distension Extremities- trace pretibial edema, no erythema seen Neuro- alert, oriented x 3; PERRL, no facial palsy; no dysarthria; moves extremities. Skin- warm & dry Discharge Exam General: Alert, oriented. No acute distress Psych: Appropriate mood and affect Neuro: difficulty with movements in the bed HEENT: NC/AT CV: RRR Resp: Breath sounds clear bilaterally, no increased effort of breathing Abdomen:Soft, nontender Extremities: edema in lower extremities bilaterally. Updated Medication List Medication Instructions Recorded Confirmed Type apixaban 5 mg tablet (Eliquis) 5 mg PO BID 12/13/23 12/13/23 History buspirone 10 mg tablet 10 mg PO BID 12/13/23 12/13/23 History calcitriol 0.25 mcg capsule 0.25 mcg PO UD 12/13/23 12/13/23 History gabapentin 300 mg capsule 300 mg PO TID 12/13/23 12/13/23 History irbesartan 75 mg tablet 75 mg PO DAILY 12/13/23 12/13/23 History loperamide 2 mg capsule 2 mg PO Q6H PRN Diarrhea 12/13/23 12/13/23 History metoprolol succinate 25 mg 37.5 mg PO DAILY 12/13/23 12/13/23 History tablet,extended release 24 hr pantoprazole 40 mg tablet,delayed 40 mg PO DAILY 12/13/23 12/13/23 History release rosuvastatin 10 mg tablet 10 mg PO DAILY 12/13/23 12/13/23 History trazodone 150 mg tablet 150 mg PO HS 12/13/23 12/13/23 History levothyroxine 75 mcg tablet 75 mcg PO DAILYBB #30 tabs 12/20/23 Rx (Synthroid) Hospital Stay Data Consultations 12/13/23 21:27 ED Decision to Admit Stat 12/14/23 17:34 Consult Cardiology Routine Diagnostic Imagining Performed 12/13/23 18:29 CT head/brain wo con Stat Chest X-Ray 12/13/23 18:28 SINGLE VIEW CHEST CLINICAL HISTORY: Generalized weakness. FINDINGS: An AP, portable, upright chest radiograph is compared to chest x-ray and chest CT dated 11/03/2023. The patient is status post midline sternotomy. The heart is enlarged and noting atherosclerotic calcification of the thoracic aorta . The pulmonary vasculature is noncongested. A hiatal hernia is noted. Chronic cortical thickening is similar to previous. There is mild bibasilar atelectasis. The lungs and pleural spaces are otherwise clear. No pneumothorax is seen. The the skeletal structures are osteopenic. There are chronic/healed right-sided rib fractures. Bilateral shoulder arthroplasties are in place. IMPRESSION: 1. Cardiomegaly with no active disease in the chest. 2. Hiatal hernia. ACT 112: Negative or not required by law. Electronically signed by: Avel Calero M.D. 12/13/2023 7:[address] 12/13/23 18:29 CT SCAN OF THE BRAIN WITHOUT IV CONTRAST CLINICAL HISTORY: Change in mental status. COMPARISON STUDY: CT of the brain dated 07/16/2022. TECHNIQUE: Unenhanced axial CT scan of the brain is performed from the vertex to the skull base. A dose lowering technique was utilized adhering to the principles of ALARA. CT DOSE: 625.8 mGy.cm FINDINGS: Brain parenchyma: There is age-related involutional change noting moderate subcortical and periventricular microangiopathic disease. There is no hemorrhage, mass effect, or evidence of acute territorial ischemia by CT criteria. Rashid-white matter differentiation is preserved. No extra-axial fluid collection is seen. Ventricles, sulci, cisterns: Prominent secondary to involutional change. Intracranial vasculature: There is atherosclerotic calcification of the cavernous carotid and vertebral arteries. Calvarium: Unremarkable. Sinuses and mastoids: The visualized paranasal sinuses are clear. The mastoid air cells are well pneumatized. Orbits: The bony orbits are grossly intact. There are bilateral ocular lens implants. IMPRESSION: There is no hemorrhage, mass effect, or evidence of acute territorial ischemia by CT criteria. ACT 112: Negative or not required by law. Electronically signed by: Avel Calero M.D. 12/13/2023 6:50 PM KUB X-Ray 12/14/23 08:19 XR KUB/Abdomen 1 view CLINICAL HISTORY: [id number] TECHNIQUE: 1 view of the abdomen was obtained. Comparison: Comparison is made to abdomen radiographs 07/20/2022 FINDINGS: Lung bases are unremarkable. Degenerative changes are seen in the visualized skeleton. Bilateral hip arthroplasties are seen. The bowel gas pattern is nonobstructive. Small stool burden is seen. IMPRESSION: Nonobstructive bowel gas pattern. ACT 112: Negative or not required by law. Electronically signed by: Heath Rockwell M.D. 12/14/2023 8:56 AM Pending Results Patient Have Any Pending Studies at Discharge: No Discharge Instructions Given to Patient (Per Discharging Provider) Zoya, You were admitted and treated for confusion when you first came in. This was likely related to abruptly stopping your medications and not taking it from some time. Your symptoms improved. Your thyroid levels were also abnormal. Your case was discussed with the corporate director talent assessment who recommended restarting your home levothyroxine at the lower dose of 75 mcg. Please continue with this dose until you follow-up with your primary care provider for further evaluation and management. Your kidney function was also a bit abnormal. It improved after IV fluids but will need continued follow-up with your primary care provider after discharge. Please continue to try to stay hydrated at home. And please continue to take your medications as prescribed. Please also keep close follow up with your primary care provider after discharge. Please do not hesitate to come back to the emergency room if your symptoms worsen or return. It was a pleasure taking care of you while you were here. Total Time Total Time Spent Total Time Spent (In Minutes): 65
[2023-12-21 12:04] VITALS: PULSE 71; RESP 12; TEMP 97.5; O2SAT 98
[2023-12-21 12:15] VITALS: BP 161/87
== END 2023-12-21 13:02 | disposition home health service (06) | DRG 92 ==
LOC: ED 17:22 → EDINP 23:09 → SUATTDRO 23:09 → 2N 12-14 01:18

== ENCOUNTER 2024-03-16 09:34 | Inpatient (IN) ==
--- OUTSIDE RECORDS SUMMARY | 2024-03-16 09:39 | External Medical Summary | Summary of Care ---
Author Name Unknown Organization [facility] Address [address] [place] [address] Phone [phone] Care Team Providers Care Medicare Specialist Name Role Phone Gilbert Calloway MD Primary Care Provide r Encounter Details Date Type Department Care Team (Late st Contact Info) Description 03/10/2024 Population Health External Data Unspecified Department Allergies Active Allergy Reactions Criticality Noted Date Comments Ergotamine 03/01/2000 vomit Nitroglycerin 03/14/2007 vomitting documented as of this encounter (statuses as of 03/10/2024) Medications Acetaminophen 500 MG Oral Tablet (Tylenol)Indicatio ns:Generalized osteoarthritis Take 1 Tablet by mouth in the morning and 1 Tablet at noon and 1 Tablet before bedtime. 100 Tablet 4 Active Advanced Probiotic Oral Capsule Take 1 Capsule by mouth in the morning. 30 Capsule 4 Active Apixaban 5 MG Oral Tablet (Eliquis) Take 1 Tablet by mouth in the morning and 1 Tablet before bedtime. 180 Tablet 3 4 Active Pantoprazole Sodium 40 MG Oral Tablet Delayed Release (Protonix)Indicati ons:Gastric ulcer without hemorrhage or perforation, unspecified chronicity,Gastroe sophageal reflux disease with esophagitis without hemorrhage Take 1 Tablet by mouth in the morning and 1 Tablet before bedtime. 180 Tablet 2 4 Active Calcitriol 0.25 MCG Oral Capsule (Rocaltrol) One tablet by mouth every Sunday, Sunday and Sunday 45 Capsule 1 10/03/202 4 Active Loperamide HCl 2 MG Oral Capsule (Imodium)Indicatio ns:Chronic diarrhea TAKE ONE CAPSULE BY MOUTH FOUR TIMES DAILY NEEDED 60 Capsule 1 4 Active busPIRone HCl 10 MG Oral Tablet (Buspar)Indication s:Anxiety state Take 1 Tablet by mouth in the morning and 1 Tablet before bedtime. 60 Tablet 5 4 Active Rosuvastatin Calcium 10 MG Oral Tablet (Crestor)Indicatio ns:Dyslipidemia, goal LDL below 100 Take 1 Tablet by mouth at bedtime. 90 Tablet 2 4 Active traZODone HCl 150 MG Oral Tablet (Desyrel)Indicatio ns:Persistent insomnia Take 1 Tablet by mouth at bedtime. 90 Tablet 1 4 Active Metoprolol Succinate ER 25 MG Oral Tablet Extended Release 24 Hour (toPROL XL) Take 1.5 Tablets by mouth in the morning. 45 Tablet 3 4 Active Gabapentin 300 MG Oral Capsule (Neurontin)Indicat ions:DDD (degenerative disc disease), lumbar Take 1 Capsule by mouth in the morning and 1 Capsule before bedtime. 120 Capsule 5 4 Active Levothyroxine Sodium 75 MCG Oral Tablet (Levoxyl) Take 1 Tablet by mouth daily first thing in the morning. (at least 30 min prior to breakfast or other meds) 90 Tablet 3 4 Active Ondansetron HCl 4 MG Oral Tablet (Zofran)Indication s:Nausea TAKE ONE TABLET BY MOUTH EVERY 6 HOURS NEEDED FOR NAUSEA 30 Tablet 2 4 Active documented as of this encounter (statuses as of 03/10/2024) Active Problems Problem Noted Date Diagnosed Date Cognitive deficits 11/28/2023 Full code status 11/15/2023 Anxiety state 2023 Major depressive disorder wi th single episode, in partial remission 10/12/2023 Assessment & Plan (01/14/2024 10:32 PM EST): Mood stable today on buspar and trazodone Hypercalcemia 12/15/2022 Assessment & Plan (12/15/2022 1:07 PM EDT): No longer on supplementation. Follow up with nephrology (HFpEF) heart failure with preserved ejection fr action 12/07/2022 Overview (12/18/2022): Ca 11.6 Hiatal hernia 12/07/2022 Overview (12/18/2022): moderate Hypertensive heart and kidne y disease with chronic diastolic congestive heart failure and stage 3b chronic kidney disease 07/27/2021 Assessment & Plan (01/14/2024 10:32 PM EST): "RED FLAG" HF Symptoms: Leg Swelling Abdominal Bloating Increased dyspnea on exertion Medication Regimen: Beta Sha Therapy: Metoprolol Succinate (ER) VIKKI Inhibitor/ARB Therapy: No VIKKI/ARB/ARNI secondary to: KIM Diuretic therapy: Other: only using prn SGLT2 Inhibitor: No Current SGLT2 (Describe in the Comments) Self - Management Plan Other/Additional Comments: reach out to PCP Exacerbation Plan Contact the HF Provider for IV Lasix guidance Additional Comments: Euvolemic today Not on routine diuretics Assessment & Plan (12/15/2022 1:06 PM EDT): Current Status: "Stable" for patient / At [...] stable on AMC. She appears euvolemic today. Assessment & Plan (08/03/2022 11:39 AM EDT): Current Status: "Stable" for patient / At [...] days Exacerbation Plan o BMP o Pro-BNP Assessment & Plan (04/07/2022 4:46 PM EST): Current Status: "Stable" for patient / At or near baseline Degree of Condition Awareness: Demonstrates very good awareness of condition but not disease course and/or prognosis "RED FLAG" HF Symptoms: o NO IDENTIFIED SYMPTOMS Current Heart Failure Classifications: o No symptoms ([employer] [place] [employer] CLASS I) Diagnostic Review: Recent Labs Units 07/14/21 1459 06/08/21 1520 BNP (NT-PRO-BNP) - [facility] pg/mL 3,432* 4,662* ESTIMATED GLOMERULAR FILTRATION RATE - [facility] mL/min 44* 48* HGB - [facility] g/dL -- 10.8* Medication Regimen: o Beta Sha Therapy: Metoprolol Succinate (ER) o VIKKI Inhibitor/ARB Therapy: No VIKKI/ARB/ARNI secondary to: none o Diuretic therapy: Torsemide Self - Management Plan o Avoid excessive fluid intake and avoid salty, processed food o Weigh daily Exacerbation Plan o Has not required home advanced interventions for heart failure Assessment & Plan (07/27/2021 4:18 PM EDT): Euvolemic. She continues daily wts and torsemide 20mg daily. Suspect she is gaining real wt. [facility] nursing continue to monitor. Spondylosis of lumbar region without myelopathy or radiculopathy 07/27/2021 Assessment & Plan (07/27/2021 4:23 PM EDT): Pt reports chronic low back pain but [...] discuss her pain concerns. She is aware [facility] does not manage chronic pain meds. With her history of confusion, would recommend against use of narcotic medication. Mild aortic stenosis 07/27/2021 Assessment & Plan (08/03/2022 11:39 AM EDT): Following with cardiology Aortocoronary bypass status 03/09/2021 Chronic atrial fibrillation 03/01/2021 Overview (03/09/2021): dionisio valenzuela, [facility] on apixaban Assessment & Plan (01/14/2024 10:32 PM EST): Rate controlled Continue eliquis for stroke prevention Assessment & Plan (12/15/2022 1:03 PM EDT): Her rate is controlled today. It was recommended while inpatient metoprolol could be increased to 50 mg daily-evidently her BP was elevated at that time as well. Patient reports prior to hospitalization she had not taken medication in over a week. Today her rate is controlled and systolic BP 118. We will continue metoprolol 25 mg daily. Continues apixaban stroke prophylaxis Assessment & Plan (08/03/2022 11:38 AM EDT): Rate controller. Regular today -continue eliquis and metoprolol Assessment & Plan (04/07/2022 4:42 PM EST): Rate controlled on metoprolol Apixaban for stroke prophylaxis Greater trochanteric bursitis of right hip 11/03 History of gastric ulcer 11/02/2020 Aortic ectasia, thoracic 11/01/2020 Other idiopathic scoliosis, thoracolumbar region 11/01/2020 Bilateral shoulder region arthritis 04/16/2017 DDD (degenerative disc disease), lumbar 04/16/19 18 Assessment & Plan (01/14/2024 10:32 PM EST): Orders: Gabapentin 300 MG Oral Capsule (Neurontin); Take 1 Capsule by mouth in the morning and 1 Capsule before bedtime. Assessment & Plan (08/03/2022 11:46 AM EDT): Stable -CONSIDER D/CE OF RELAFEN (NSAID) with use of eliquis and known cardiac disease Acquired hypothyroidism 08/02/2015 Assessment & Plan (08/03/2022 11:40 AM EDT): Continue synthroid Assessment & Plan (04/07/2022 4:40 PM EST): Needs updated labs Continues levoxyl 100mcg daily Persistent insomnia 11/04/2013 Assessment & Plan (04/07/2022 4:53 PM EST): Pt reporting remeron not helping. She admitted [...] to see sleep medicine for further eval. Assessment & Plan (07/27/2021 4:20 PM EDT): She reports she is sleeping much better since on remeron. 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 Assessment & Plan (08/03/2022 11:37 AM EDT): Stable no angina -continue rosuvastatin, metopropolol, Assessment & Plan (04/07/2022 4:41 PM EST): Continue metoprolol and rosuvastatin Primary hypertension Gastroesophageal reflux dise ase with esophagitis without hemorrhage Assessment & Plan (08/03/2022 11:40 AM EDT): symptoms controlled on pantoprazole Scoliosis of lumbar spine Mixed incontinence urge and stress (male)(female ) documented as of this encounter (statuses as of 03/10/2024) Resolved Problems Problem Noted Date Diagnosed Date Resolved Date Anxiety state 10/12/2023 10/12/2023 Assessment & Plan (08/03/2022 11:40 AM EDT): Stable on buspar, Assessment & Plan (04/07/2022 4:40 PM EST): Continue buspar Stage 3a chronic kidney disease 10/12/2023 2023 Meningioma, cerebral 07/16/2022 023 Overview (07/27/2022): small frontal cortex meningioma without mass effect [...] disease 06/29/2020 05/04/2022 Overview: Per CKD protocol Assessment & Plan (04/07/2022 4:41 PM EST): BP at goal at metoprolol Assessment & Plan (06/01/2021 11:03 AM EDT): She has not taken any medication in a few days. VSS. Will plan visit tomorrow to recheck Acquired hypothyroidism 01/19/201612/22 Gastric ulcer 06/30/2014 06/26/2017 Overview (07/15/2014): hgb 7.4 admitted [facility] CKD (chronic kidney disease) stage 3, GFR 30-59 ml/min 07/03/2013 05/07/2014 Overview (07/04/2013): GFR 36.9 Low back pain radiating to left leg 03/19/2012 01/10/2024 Dyslipidemia, goal LDL below 100 01/28/2009 10/12/2023 Overview (01/28/2009): Per Lipid Taxonomy. Assessment & Plan (04/07/2022 4:43 PM EST): Due for updated labs. Continue rosuvastatin Kidney disease, chronic, sta ge III (GFR 30-59 ml/min) 07/28/2007 06/01/2017 ADVANCE DIRECTIVE INFORMATION 07/13/2004 12/24/2023 Overview (07/13/2004): No, Advance Directive brochure given to patient. Anticoagulation management encounter 09/09/2002 02/25/2014 Retinal detachment of both e yes with multiple retinal tears 05/29/2002 05/16/2018 Dyslipidemia, goal to be determined 08/20/2000 01/28/2009 Overview (01/28/2009): Per Lipid Taxonomy. Hypothyroidism 08/20/2000 01/19/2016 Adjustment disorder with depressed mood 03/13/2019 MEDICATION USE AGREEMENT Cataract cortical, senile Benign hypertension with CKD (chronic kidney disease) stage III 07/01/2020 Overview: Per CKD protocol Major depression, single episode 07/27/2022 Assessment & Plan (04/07/2022 4:51 PM EST): Denies depression. Stable Continue remeron Assessment & Plan (07/27/2021 4:19 PM EDT): Pt very bright and happy, glad to have her dog back home. She continues buspar and remeron. Stable. Assessment & Plan (06/01/2021 11:13 AM EDT): She has not been taking medication including buspar. Depressed and tearful today but denied suicidal ideation. Continue to monitor. documented as of this encounter (statuses as of 03/10/2024) Immunizations Name Administration Dates Next Due COVID-19 mRNA, LNP-s, No Pre serve, 2-Dose Series (Moderna) 04/04/2020,03/14/2020 Pneumococcal Conjugate Vacc, 13 Valent (Prevnar) 08/26/2014 Pneumococcal Polysaccharide PPV23 (Pneumovax) 10/26/2005 Seasonal Influenza Vac., MDV , IM, 0.5 mL (Fluzone) 11/04/2013,11/22/2012,01/09/2011(Defer red: Patient Refused),12/01/2005 Seasonal Influenza, High Dos e, Trivalent, PF, IM (Fluzone HD) 12/24/2023 Seasonal Influenza, PF, 6 M & above, [...] 2oz per week PHQ-2 Answer Date Recorded PHQ Adult Total Score 0 12/24/2023 Hunger Vital Sign Answer Date Recorded Within the past 12 months, y ou worried that your food would run out before you got the money to buy more. Never true 01/22/20 24 Within the past 12 months, t he food you bought just didn't last and you didn't have money to get more. Never true 01/22/2024 Childcare Answer Date Recorded Do you feel overwhelmed with taking care of a child, family member or friend? No 01/22/2024 Does your family need help f inding childcare? (Household - for ages 0-17 years) Not on file 01/22/2024 Clothing Answer Date Recorded Have you been unable to get clothing when it was really needed? No 01/22/2024 Is your family able to get c lothes or diapers when needed? (Household - for ages 0-17 years) Not on file 01/22/2024 Personal Safety Answer Date Recorded Do you feel unsafe or have concerns for your saf ety? No 01/22/2024 Do you have concerns for you r family's safety? (Household - for ages 0-17 years) Not on file 01/22/2024 Utilities Answer Date Recorded Do you have trouble paying y our heating, water, or electric bill? No 01/22/2024 Is your family able to pay t he heat, water, or electric bill? (Household - for ages 0-17 years) Not on file 01/22/2024 Does your family have access to good internet? (Household - for ages 0-17 years) Not on file 01/22/2024 Employment Status Answer Date Recorded Are you unemployed or without regular income? No 01/22/2024 Does the household have a re gular source of income? (Household - for ages 0-17 years) Not on file 01/22/2024 Social Connections Answer Date Recorded How often do you feel lonely or isolated from th ose around you? Never 01/22/2024 Financial Resource Strain Answer Date R ecorded Do you have any trouble payi ng for your medications, or do you think you might in the future? No 01/22/2024 Does your family have troubl e paying for medicine? (Household - for ages 0-17 years) Not on file 01/22/2024 Transportation Needs Answer Date Record ed Do you have trouble getting a ride to medical visits or work? (Adult - for ages 18 years and over) Not on file 01/22/2024 Does your family have a hard time getting a ride to doctors visits? (Household - for ages 0-17 years) Not on file 01/22/2024 Has lack of transportation k ept you from medical appointments, meetings, work, or from getting things needed for daily living? Check all that apply. No 01/22/2024 Do you (or your family) have trouble finding or paying for a ride (transportation)? (Household - for ages 0-17 years) Not on file 01/22/2024 Housing Stability Answer Date Recorded Do you currently live in a s helter or have no steady place to sleep at night? No 01/22/2024 Do you think you are at risk of becoming homeless? (Adult - for ages 18 years and over) Not on file 01/22/2024 Does your family worry about paying for your home or becoming homeless? (Household - for ages 0-17 years) Not on file 1 03/24/2023 Are you homeless or worried that you might be in the future? No 01/22/2024 Are you (or your family) earnest eless or worried that you might be in the future? (Household - for ages 0-17 years) Not on file Food Insecurity Answer Date Recorded Do you need food for this week? No 01/22/2024 Are you able to get enough f ood for your family? (Household - for ages 0-17 years) Not on file 01/22/2024 Does your family need food t his week? (Household - for ages 0-17 years) Not on file 01/22/2024 Do you always have enough fo od for your family? (Household - for ages 0-17 years) Not on file 01/22/2024 Comments No Sex and Gender Information Value Date Recorded Sex Assigned at Female 12/11/2022 6:31 PM EDT Legal Sex Female 5:53 AM EST Gender Identity Female 12/11/2022 6:31 PM EDT Sexual Orientation Straight 05/16/2023 10 :36 AM EDT documented as of this encounter Plan of Treatment Upcoming Encounters Date Type Department Care Team (Late st Contact Info) Description 04/04/2024 2:40 PM EST Office Visit Nephrology, Caroline Sparks [address] [facility] [place] [id number] Tirso Shah MD [address] [facility] [place] [id number] 06/30/2024 10:00 AM EDT Office Visit Family Medicine [address] [phone] Gilbert Calloway MD [address] [place] [address] [place] [address] Health Maintenance Due Date Last Done Comments DTap/Tdap Vaccines (1 - Tdap) 11/15/1957 Adult Wellness Visit 2002 Albumin/Creatinine Ratio 07/28/2023 023, 06/09/2020, 03/13/2019, Additional history exists COVID-19 Vaccine ( season) 2023 01/04/2021, 04/19/2020, 04/04/2020, Additional history exists TSH 12/05/2024 12/06/2023, 10/21, 07/27/2022, Additional history exists CKD HGB USE SMARTSET 35303 12/20/202412/20, 12/06/2023, 11/16/2023, Additional history exists CKD PHOS USE SMARTSET 76910 12/20/2024 11/0 02/2023, 11/16/2023, 10/04/2022, Additional history exists Depression Monitoring 12/23/2024 12/24/2023 Pneumococcal Vaccine: 50+ Years Completed 08/26/2014, 10/26/2005 Zoster Vaccines Completed 11/23/2020, 12/04/2019 Influenza Vaccine (FLU shot) Completed 05/2023, 01/10/2022, 11/18/2020, Additional history exists HPV (Gardasil) Vaccine Aged Out No lo [...] filedocumented as of this encounter Care Teams Medicare Specialist Relationship Specialty Start Date End Date Gilbert Calloway MD [address] [place] [address] [place] [id number] PCP - General Family Medicine 07/30/23 documented as of this encounter
--- OUTSIDE RECORDS SUMMARY | 2024-03-16 09:39 | External Medical Summary | Summary of Care ---
Author Name Unknown Organization [facility] Address [address] [place] [address] Phone [phone] Care Team Providers Care Welt Butter Hand Name Role Phone Gilbert Calloway MD Primary Care Provide r Reason for Visit * Reason Comments eRx-Medication Refill Encounter Details Date Type Department Care Team (Late st Contact Info) Description 03/10/2024 Refill Family Medicine [address] [place] [phone] Gilbert Calloway MD [address] [place] [address] [place] [address] ANXIETY STATE NOS Allergies Active Allergy Reactions Criticality Noted Date Comments Ergotamine 03/01/2000 vomit Nitroglycerin 03/14/2007 vomitting documented as of this encounter (statuses as of 03/11/2024) Medications Acetaminophen 500 MG Oral Tablet (Tylenol)Indicati ons:Generalized osteoarthritis Take 1 Tablet by mouth in the morning and 1 Tablet at noon and 1 Tablet before bedtime. 100 Tablet 04/09/19 24 Active Advanced Probiotic Oral Capsule Take 1 Capsule by mouth in the morning. 30 Capsule 11/22/19 24 Active Apixaban 5 MG Oral Tablet (Eliquis) Take 1 Tablet by mouth in the morning and 1 Tablet before bedtime. 180 Tablet 3 11/22/19 24 Active Pantoprazole Sodium 40 MG Oral Tablet Delayed Release (Protonix)Indicat ions:Gastric ulcer without hemorrhage or perforation, unspecified chronicity,Gastro esophageal reflux disease with esophagitis without hemorrhage Take 1 Tablet by mouth in the morning and 1 Tablet before bedtime. 180 Tablet 2 11/22/19 24 Active Calcitriol 0.25 MCG Oral Capsule (Rocaltrol) One tablet by mouth every Sunday, Sunday and Sunday 45 Capsule 1 11/22/19 24 Active Loperamide HCl 2 MG Oral Capsule (Imodium)Indicati ons:Chronic diarrhea TAKE ONE CAPSULE BY MOUTH FOUR TIMES DAILY NEEDED 60 Capsule 1 11/22/19 24 Active Rosuvastatin Calcium 10 MG Oral Tablet (Crestor)Indicati ons:Dyslipidemia, goal LDL below 100 Take 1 Tablet by mouth at bedtime. 90 Tablet 2 11/22/19 24 Active traZODone HCl 150 MG Oral Tablet (Desyrel)Indicati ons:Persistent insomnia Take 1 Tablet by mouth at bedtime. 90 Tablet 1 11/22/19 24 Active Metoprolol Succinate ER 25 MG Oral Tablet Extended Release 24 Hour (toPROL XL) Take 1.5 Tablets by mouth in the morning. 45 Tablet 3 12/27/19 24 Active Gabapentin 300 MG Oral Capsule (Neurontin)Indica tions:DDD (degenerative disc disease), lumbar Take 1 Capsule by mouth in the morning and 1 Capsule before bedtime. 120 Capsule 5 01/14/20 24 Active Levothyroxine Sodium 75 MCG Oral Tablet (Levoxyl) Take 1 Tablet by mouth daily first thing in the morning. (at least 30 min prior to breakfast or other meds) 90 Tablet 3 01/18/20 24 Active Ondansetron HCl 4 MG Oral Tablet (Zofran)Indicatio ns:Nausea TAKE ONE TABLET BY MOUTH EVERY 6 HOURS NEEDED FOR NAUSEA 30 Tablet 2 02/14/20 24 Active busPIRone HCl 10 MG Oral Tablet (Buspar)Indicatio ns:Anxiety state TAKE ONE TABLET TWICE DAILY 60 Tablet 5 03/11/19 25 Active busPIRone HCl 10 MG Oral Tablet (Buspar)Indicatio ns:Anxiety state Take 1 Tablet by mouth in the morning and 1 Tablet before bedtime. 60 Tablet 5 11/22/19 24 025 Discontinued documented as of this encounter (statuses as of 03/11/2024) Active Problems Problem Noted Date Diagnosed Date [...] daily. Suspect she is gaining real wt. [facility] nursing continue to monitor. Spondylosis of lumbar [...] 03/09/2021 Chronic atrial fibrillation 03/01/2021 Overview (03/09/2021): new onset, [facility] on apixaban Assessment & Plan [...] of [place] heart without angina pectoris Assessment & Plan [...] as of this encounter (statuses as of 03/11/2024) Resolved Problems Problem Noted Date Diagnosed Date [...] 06/30/2014 06/26/2017 Overview (07/15/2014): hgb 7.4 admitted [facility] CKD [...] as of this encounter (statuses as of 03/11/2024) Immunizations Name Administration Dates Next Due COVID-19 [...] 01/22/2024 Does the household have a re lar [...] AM EDT documented as of this encounter Miscellaneous Notes * Telephone Encounter - Gilbert Calloway MD - 03/11/2024 8:45 AM EST Signed Prescriptions: Disp Refills busPIRone HCl 10 MG Oral Tablet (Buspar) 60 Tab*5 Sig: TAKE ONE TABLET TWICE DAILY Authorizing Provider: GILBERT CALLOWAY * Telephone Encounter - Phil Gonzalez [facility] - 03/11/2024 8:29 AM ESTPending Prescriptions: Disp Refills busPIRone HCl 10 MG Oral Tablet [Pharmacy *60 Tab*5 Sig: TAKE ONE TABLET TWICE DAILY * Telephone Encounter - Phil Gonzalez [facility] - 03/11/2024 8:28 AM EST Last authorized by SNF provider. [facility] is currently not authorized to approve refills for the pended medication(s) per refill protocol. Please approve if appropriate. Thanks, Phil Gonzalez Pharm.D. Clinical Pharmacist [facility] ([facility]) [phone] 03/11/2024, 8:28 AM Did you pend patient's preferred pharmacy and medication before forwarding?yes [facility], [address] [place] Pending Prescriptions: Disp Refills busPIRone HCl 10 MG Oral Tablet (Buspar) *60 Tab*5 Sig: TAKE ONE TABLET TWICE DAILY Last Visit: 12/24/2023 (in office), 01/10/2023 (telemedicine) Next Visit: 06/30/2024 If no future appointments scheduled, and last appointment is greater than a year ago, please schedule patient for a follow-up appointment Last date the medication was ordered: 11/22/2023 Is this request for a controlled substance?No [...] purposes. Confirmatory testing is available upon request. *Note: Due to a large number of results and/or encounters for the requested time period, some results have not been displayed. A complete set of results can be found in Results Review. Patient Phone Numbers Labs: Lab Results Component Value Date/Time CREAT 1.17 12/21/2023 12:00 AM CREAT 1.4 (H) 06/16/2019 10:39 AM POTASSIUM 4.2 12/21/2023 12:00 AM POTASSIUM 5.1 06/16/2019 10:39 AM TSH 0.66 12/06/2023 10:54 AM TSH 0.77 06/16/2019 10:39 AM TSH 1.45 02/04/1996 09:00 AM LDL 93 12/06/2023 10:54 AM LDL 82 08/02/2015 02:56 PM LDL NOT APPLICABLE 08/02/2015 02:56 PM ALT 13 03/06/2023 02:29 PM ALT 26 06/16/2019 10:39 AM HGBA1C 5.5 12/06/2023 10:54 AM HGBA1C 5.7 (A) 01/25/2018 12:00 AM HGBA1C 5.2 11/04/2013 12:09 PM documented in this encounter Plan of Treatment Upcoming Encounters Date Type Department Care Team (Late st Contact Info) Description 04/04/2024 2:40 PM EST Office Visit Nephrology, [place] [address] [facility] [place] [address] Tirso Shah MD [address] [facility] [place] [address] 06/30/2024 10:00 AM EDT Office Visit Family Medicine [address] [place] [phone] Gilbert Calloway MD [address] [place] [address] [place] [address] Health Maintenance Due Date Last Done Comments DTap/Tdap Vaccines (1 - Tdap) 11/15/1957 Adult Wellness Visit 2002 Albumin/Creatinine Ratio 07/28/2023 023, 06/09/2020, 03/13/2019, Additional history exists COVID-19 Vaccine ( season) 2023 01/04/2021, 04/19/2020, 04/04/2020, Additional history exists TSH 12/05/2024 12/06/2023, 10/21, 07/27/2022, Additional history exists CKD HGB USE SMARTSET 08013 12/20/202412/20, 12/06/2023, 11/16/2023, Additional history exists CKD PHOS USE SMARTSET 26474 12/20/2024 110 02/2023, 11/16/2023, 10/04/2022, Additional history exists Depression [...] stage 3b chronic kidney disease (HCC)- Primary Current moderate episode of major depressive disorder without prior episode (HCC) Persistent insomnia Persistent disorder of initiating or maintaining sleep Spondylosis of lumbar region without myelopathy or radiculopathy Lumbosacral spondylosis without myelopathy Mild aortic stenosis Aortic valve disorders Insomnia, unspecified type- Primary Nausea without vomiting Hypertensive heart and kidney disease with chronic diastolic congestive heart failure and stage 3b chronic kidney disease (HCC) Current moderate episode of major depressive disorder without prior episode (HCC) Anxiety state Anxiety state, unspecified Atherosclerosis of [place] coronary artery of [place] heart without angina pectoris Acquired hypothyroidism Unspecified hypothyroidism Dyslipidemia, goal LDL below 100 Other and unspecified hyperlipidemia Aortic ectasia, thoracic (HCC) Thoracic aortic ectasia Chronic atrial fibrillation (HCC) Atrial fibrillation Benign hypertension with stage 3b chronic kidney disease (HCC) Advanced care planning/counseling discussion- Primary Other specified counseling Atherosclerosis of [place] coronary artery of [place] heart without angina pectoris Chronic atrial fibrillation (HCC) Atrial fibrillation Hypertensive heart and kidney disease with chronic diastolic congestive heart failure and stage 3b chronic kidney disease (HCC) Mild aortic stenosis Aortic valve disorders Gastroesophageal reflux disease with esophagitis without hemorrhage Acquired hypothyroidism Unspecified hypothyroidism Anxiety state Anxiety state, unspecified DDD (degenerative disc disease), lumbar Degeneration of lumbar or lumbosacral intervertebral disc Chronic atrial fibrillation (HCC)- Primary Atrial fibrillation Hypertensive heart and kidney disease with chronic diastolic congestive heart failure and stage 3b chronic kidney disease (HCC) Hypercalcemia Hypertensive heart and kidney disease with chronic diastolic congestive heart failure and stage 3b chronic kidney disease (HCC)- Primary Chronic atrial fibrillation (HCC) Atrial fibrillation Major depressive disorder with single episode, in partial remission ([facility]) Osteoarthritis of spine with radiculopathy, lumbar region DDD (degenerative disc disease), lumbar Degeneration of lumbar or lumbosacral intervertebral disc Advanced care planning/counseling discussion Other specified counseling ANXIETY STATE NOS Anxiety state, unspecified documented in this encounter Care Teams Welt Butter Hand Relationship Specialty Start Date End Date Gilbert Calloway MD [address] [place] [address] [place] [address] PCP - General Family Medicine 07/30/23 documented as of this encounter
--- OUTSIDE RECORDS SUMMARY | 2024-03-16 09:40 | External Medical Summary | Summary of Care ---
Author Name Unknown Organization [facility] Address [address] [place] [address] Phone [phone] Care Team Providers Care Welder Operator Name Role Phone Gilbert Calloway MD Primary Care Provide r Encounter Details Date Type Department Care Team (Late st Contact Info) Description 03/04/2024 Population Health External Data Unspecified Department Allergies Active Allergy Reactions Criticality Noted Date Comments Ergotamine 03/01/2000 vomit Nitroglycerin 03/14/2007 vomitting documented as of this encounter (statuses as of 03/05/2024) Medications Acetaminophen 500 MG Oral Tablet (Tylenol)Indicatio [...] as of this encounter (statuses as of 03/05/2024) Active Problems Problem Noted Date Diagnosed Date [...] daily. Suspect she is gaining real wt. [facility] nursing continue to monitor. Spondylosis of lumbar [...] atrial fibrillation 03/01/2021 Overview (03/09/2021): dionisio valenzuela, [facility] on apixaban Assessment & Plan (01/14/2024 [...] artery of [place] heart without angina pectoris Assessment & Plan [...] as of this encounter (statuses as of 03/05/2024) Resolved Problems Problem Noted Date Diagnosed Date [...] 06/30/2014 06/26/2017 Overview (07/15/2014): hgb 7.4 admitted [facility] CKD [...] as of this encounter (statuses as of 03/05/2024) Immunizations Name Administration Dates Next Due COVID-19 [...] 01/22/2024 Transportation Needs Answer Date Record ed READ ONLY Do you have troubl e getting a ride to medical visits or work? Never True 01/22/2024 Does your family have a hard [...] place to sleep at night? No 01/22/2024 READ ONLY Do you think you a re at risk of becoming homeless? No 01/22/2024 Does your family worry about paying [...] EST Office Visit Nephrology, [place] [address] [place] [address] Tirso Shah MD [address] [place] [address] 06/30/2024 10:00 AM EDT Office Visit Family Medicine [address] [phone] Gilbert Calloway MD [address] [place] [address] [place] [address] Health Maintenance Due Date Last Done Comments DTap/Tdap Vaccines (1 - Tdap) 11/15/1957 Adult Wellness Visit 2002 Albumin/Creatinine Ratio 07/28/2023 023, 06/09/2020, 03/13/2019, Additional history exists COVID-19 Vaccine ( season) 2023 01/04/2021, 04/19/2020, 04/04/2020, Additional history exists TSH 12/05/2024 12/06/2023, 10/21, 07/27/2022, Additional history exists CKD HGB USE SMARTSET 87573 12/20/202412/20, 12/06/2023, 11/16/2023, Additional history exists CKD PHOS USE SMARTSET 39099 12/20/2024 11/0 02/2023, 11/16/2023, 10/04/2022, Additional history [...] filedocumented as of this encounter Care Teams Welder Operator Relationship Specialty Start Date End Date Gilbert Calloway MD [address] [place] [address] [place] [address] PCP - General Family Medicine 07/30/23 documented as of this encounter
--- OUTSIDE RECORDS SUMMARY | 2024-03-16 09:40 | External Medical Summary | Summary of Care ---
Author Name Unknown Organization [facility] Address [address] [place] [facility] [place] [facility] [place] [address] Phone [phone] Care Team Providers Care Insurance Office Supervisor Name Role Phone Gilbert Calloway MD Primary Care Provide r Encounter Details Date Type Department Care Team (Late st Contact Info) Description 01/22/2024 12:30 PM EST Home Visit [facility], [facility] [address] [facility] [place] [address] Lana Lieberman, KHARI [address] [place] [address] Allergies Active Allergy Reactions Criticality Noted Date Comments Ergotamine 03/01/2000 vomit Nitroglycerin 03/14/2007 vomitting documented as of this encounter (statuses as of 01/25/2024) Medications Acetaminophen 500 MG Oral Tablet (Tylenol)Indicatio [...] before bedtime. 180 Tablet 2 4 Active Ondansetron HCl 4 MG Oral Tablet (Zofran)Indication s:Nausea TAKE ONE TABLET BY MOUTH EVERY 6 HOURS NEEDED FOR NAUSEA 30 Tablet 1 4 Active Calcitriol 0.25 MCG Oral Capsule (Rocaltrol) One tablet by mouth every Sunday, Sunday and Sunday 45 Capsule 1 4 Active Loperamide HCl 2 MG Oral [...] other meds) 90 Tablet 3 4 Active documented as of this encounter (statuses as of 01/25/2024) Active Problems Problem Noted Date Diagnosed Date [...] daily. Suspect she is gaining real wt. [facility] nursing continue to monitor. Spondylosis of [...] atrial fibrillation 03/01/2021 Overview (03/09/2021): new onset, [facility] on apixaban Assessment & Plan (01/14/2024 10:32 [...] status 09/09/2002 Atherosclerosis of [place] co ronary artery of [place] heart without angina pectoris Assessment & Plan [...] as of this encounter (statuses as of 01/25/2024) Resolved Problems Problem Noted Date Diagnosed Date [...] 06/30/2014 06/26/2017 Overview (07/15/2014): hgb 7.4 admitted [facility] [...] as of this encounter (statuses as of 01/25/2024) Immunizations Name Administration Dates Next Due COVID-19 [...] AM EDT documented as of this encounter Last Filed Vital Signs Vital Sign Reading Time Taken Comments Blood Pressure 132/74 01/22/2024 1:38 PM EST Pulse 68 01/22/2024 1:38 PM EST Temperature 36.6 C (97.9 F) 01/22/2024 1:38 PM ES T Respiratory Rate 18 01/22/2024 1:38 PM EST Oxygen Saturation 96% 01/22/2024 1:38 PM EST Inhaled Oxygen Concentration - - Weight - - Height - - Body Mass Index - - documented in this encounter Progress Notes * Lana Lieberman RN - 01/22/2024 1:19 PM EST Current Concerns: Patient seen for follow up- Medical hx includes: Anxiety, Afib, CHF, HTN, CKD Reports taking medications as prescribed per report But today- she hasn't taken them to present- states she was thinking about taking them about ten minutes before this nurse arrived. Repeated ER visits- noted in ER notes patient has abruptly stopped medications. Has pill packs from [facility]. Has not required daily Torsemide >3months. Reports being discharged from SN- PT discharge tomorrow. Spoke with Dary at [facility]- patient being discharged from all disciplines d/t inability to get in to see patient, medication noncompliance, failure to allow nurse to set up pill box to ensure med compliance. Patient aware will be graduated from [facility] d/t medication noncompliance, inability to keep appointments- No showed several times in the past- this nurse has gained access by other residents- patient still does not answer door. Does not answer phones when called prior to visits. VS wnl Lungs clear bilaterally Sob with exertion No LE edema noted Voiding without difficulty Bowels wnl Appetite good Taking fluids per report. Discussed low na diet, medication compliance, keeping all upcoming MD appointments. Voices understanding. Aware she will be referred to OPCM. Encouraged to keep her phone charged and answer all phonecalls. Physical Exam: Physical Exam Constitutional: Appearance: Normal [...] and Affect: Mood normal. Behavior: Behavior normal. Review of Systems: Review of Systems Constitutional: Negative. HENT: Negative. Respiratory: Positive for shortness of breath. Cardiovascular: Negative. Gastrointestinal: Negative. Genitourinary: Negative. Musculoskeletal: Negative. Skin: Negative. Neurological: Negative. Hematological: Negative. Psychiatric/Behavioral: Negative. Care Plan Goal Progress: Patient will remain free of falls. (Progressing) Start: 12/06/23 Expected End: 04/04/24 Goal Note No falls in last 6 months. Patient will maintain optimal activity level. (Progressing) Start: 11/29/23 Expected End: 01/18/24 Goal Note Is very forgetful- short term memory Patient able to care for herself. Showers self. Receives 2 hours 2 days a week to help clean. Patient will state need to remain in control of life. (Progressing) Start: 11/29/23 Expected End: 03/22/24 Goal Note Currently taking medications as prescribed- pill packs from [facility] Going grocery shopping herself. Orders Placed: No orders of the defined types were placed in this encounter. Medications Given: Care Gaps: Care Gaps Care gaps closed this contact: Education (01/22/24 8870) Type of education: Clinical/disease (01/22/24 3225) documented in this encounter Plan of Treatment Upcoming Encounters Date Type Department Care Team (Late st Contact Info) Description 02/25/2024 11:40 AM EST Office Visit Family [address] [phone] Daren Varela CRNP [address] [place] [address] [place] [address] 04/04/2024 2:40 PM EST Office Visit Nephrology, [facility] [place] [address] [facility] [place] [address] Tirso Shah MD [address] [facility] [place] [address] 06/30/2024 10:00 AM EDT Office Visit [address] [place] [phone] Gilbert Calloway MD [address] [place] [address] [place] [address] Health Maintenance Due Date Last Done Comments DTap/Tdap Vaccines (1 - Tdap) 11/15/1957 Adult Wellness Visit 2002 Albumin/Creatinine Ratio 07/28/2023 023, 06/09/2020, 03/13/2019, Additional history exists COVID-19 Vaccine ( season) 2023 01/04/2021, 04/19/2020, 04/04/2020, Additional history exists TSH 12/05/2024 12/06/2023, 10/21, 07/27/2022, Additional history exists CKD HGB USE SMARTSET 11293 12/20/202412/20, 12/06/2023, 11/16/2023, Additional history exists CKD PHOS USE SMARTSET 36380 12/20/2024 11/0 02/2023, 11/16/2023, 10/04/2022, Additional history exists Depression Monitoring 12/23/2024 12/24/2023 Pneumococcal Vaccine: 65+ Years Completed 08/26/2014, 10/26/2005 [...] filedocumented as of this encounter Care Teams Insurance Office Supervisor Relationship Specialty Start Date End Date Gilbert Calloway MD [address] [place] [address] [place] [address] PCP - General Family Medicine 07/30/23 documented as of this encounter
--- OUTSIDE RECORDS SUMMARY | 2024-03-16 09:40 | External Medical Summary | Summary of Care ---
Author Name Unknown Organization [facility] Address [address] [place] [address] Phone [phone] Care Team Providers Care Auger Operator Name Role Phone Gilbert Calloway MD Primary Care Provide r Reason for Visit * Reason Onset Date Comments No Show 02/28/2024 [facility] No Show Auto mation Encounter Details Date Type Department Care Team (Late st Contact Info) Description 02/28/2024 Telephone Family Medicine [address] [place] [phone] Mariajose Avila [address] [place] [address] No Show ([facility] No Show Automation) Allergies Active Allergy Reactions Criticality Noted Date Comments Ergotamine 03/01/2000 vomit Nitroglycerin 03/14/2007 vomitting documented as of this encounter (statuses as of 02/28/2024) Medications Acetaminophen 500 MG Oral Tablet (Tylenol)Indicatio [...] as of this encounter (statuses as of 02/28/2024) Active Problems Problem Noted Date Diagnosed Date [...] daily. Suspect she is gaining real wt. [facility] nursing continue to monitor. Spondylosis of lumbar [...] discuss her pain concerns. She is aware [facility] does not manage chronic pain meds. With her history of confusion, would recommend against use of narcotic medication. Mild aortic stenosis 07/27/2021 Assessment & Plan (08/03/2022 11:39 AM EDT): Following with cardiology Aortocoronary bypass status 03/09/2021 Chronic atrial fibrillation 03/01/2021 Overview (03/09/2021): new onset, [facility] on apixaban Assessment & Plan (01/14/2024 [...] artery of [place] heart without angina pectoris Assessment & Plan [...] as of this encounter (statuses as of 02/28/2024) Resolved Problems Problem Noted Date Diagnosed Date [...] 06/30/2014 06/26/2017 Overview (07/15/2014): hgb 7.4 admitted [facility] CKD (chronic kidney disease) stage 3, [...] as of this encounter (statuses as of 02/28/2024) Immunizations Name Administration Dates Next Due COVID-19 [...] encounter Miscellaneous Notes * Telephone Encounter - Mary, No Show - 02/28/2024 4:48 AM EST Dear Zoya Howard, Looks like you missed an appointment with MARIAJOSE AVILA on 02/25/2024 at 11:40 AM. If you haven't already rescheduled, you have a couple of options: Reschedule in [email or web address] Call us at [phone] Can't make a future appointment? Cancel and let someone else have your spot! It's easy to do via [employer] or by calling us. Thanks for trusting [facility] with your care. We hope to see you back in our office soon. Sincerely, MARIAJOSE AVILA documented in this encounter Plan of Treatment Upcoming Encounters Date Type Department Care Team (Late st Contact Info) Description 04/04/2024 2:40 PM EST Office Visit Neph[facility]oline [facility] [address] [place] [address] Tirso Shah MD [address] [place] [address] 06/30/2024 10:00 AM EDT Office Visit Family Medicine [address] [place] [phone] Gilbert Calloway MD [address] [place] [address] [place] [address] Health Maintenance Due Date Last Done Comments DTap/Tdap Vaccines (1 - Tdap) 11/15/1957 Adult Wellness Visit 2002 Albumin/Creatinine Ratio 07/28/2023 023, 06/09/2020, 03/13/2019, Additional history exists COVID-19 Vaccine ( season) 2023 01/04/2021, 04/19/2020, 04/04/2020, Additional history exists TSH 12/05/2024 12/06/2023, 10/21, 07/27/2022, Additional history exists CKD HGB USE SMARTSET 37573 12/20/202412/20, 12/06/2023, 11/16/2023, Additional history exists CKD PHOS USE SMARTSET 67973 12/20/2024 1102/2023, 11/16/2023, 10/04/2022, Additional history exists Depression Monitoring [...] filedocumented as of this encounter Care Teams Auger Operator Relationship Specialty Start Date End Date Gilbert Calloway MD [address] [place] [address] [place] [address] PCP - General Family Medicine 07/30/23 documented as of this encounter
--- OUTSIDE RECORDS SUMMARY | 2024-03-16 09:40 | External Medical Summary | Summary of Care ---
Author Name Unknown Organization [facility] Address [address] [place] [address] Phone [phone] Care Team Providers Care Shuttle Buggy Operator Name Role Phone Gilbert Calloway MD Primary Care Provide r Encounter Details Date Type Department Care Team (Late st Contact Info) Description 01/14/2024 1:00 PM EST [facility] Visit [facility] [address] [place] [address] Anthony Ivy PA-C [address] [place] [address] Hypertensive heart and kidney disease with chronic diastolic congestive heart failure and stage 3b chronic kidney disease (HCC)*; Chronic atrial fibrillation (HCC); Major depressive disorder with single episode, in partial remission (HCC); Osteoarthritis of spine with radiculopathy, lumbar region; DDD (degenerative disc disease), lumbar; Advanced care planning/counseling discussion Allergies Active Allergy Reactions Criticality Noted Date Comments Ergotamine 03/01/2000 vomit Nitroglycerin 03/14/2007 vomitting documented as of this encounter (statuses as of 01/14/2024) Medications Acetaminophen 500 MG Oral Tablet (Tylenol)Indicatio [...] bedtime. 180 Tablet 2 11/22/19 24 Active Ondansetron HCl 4 MG Oral Tablet (Zofran)Indication s:Nausea TAKE ONE TABLET BY MOUTH EVERY 6 HOURS NEEDED FOR NAUSEA 30 Tablet 1 11/22/19 24 Active Calcitriol 0.25 MCG Oral Capsule (Rocaltrol) One tablet by mouth every Sunday, Sunday and Sunday 45 Capsule 1 11/22/19 24 Active Loperamide HCl 2 MG Oral Capsule (Imodium)Indicatio ns:Chronic diarrhea TAKE ONE CAPSULE BY MOUTH FOUR TIMES DAILY NEEDED 60 Capsule 1 11/22/19 24 Active busPIRone HCl 10 MG Oral Tablet (Buspar)Indication s:Anxiety state Take 1 Tablet by mouth in the morning and 1 Tablet before bedtime. 60 Tablet 5 11/22/19 24 Active Rosuvastatin Calcium 10 MG Oral Tablet (Crestor)Indicatio ns:Dyslipidemia, goal LDL below 100 Take 1 Tablet by mouth at bedtime. 90 Tablet 2 11/22/19 24 Active traZODone HCl 150 MG Oral Tablet (Desyrel)Indicatio ns:Persistent insomnia Take 1 Tablet by mouth at bedtime. 90 Tablet 1 11/22/19 24 Active Levothyroxine Sodium 75 MCG Oral Tablet (Levoxyl) Take 1 Tablet by mouth daily first thing in the morning. (at least 30 min prior to breakfast or other meds) 12/24/19 24 Active Metoprolol Succinate ER 25 MG Oral Tablet Extended Release 24 Hour (toPROL XL) Take 1.5 Tablets by mouth in the morning. 45 Tablet 3 12/27/19 24 Active Gabapentin 300 MG Oral Capsule (Neurontin)Indicat ions:DDD (degenerative disc disease), lumbar Take 1 Capsule by mouth in the morning and 1 Capsule before bedtime. 120 Capsule 5 01/14/20 24 Active Gabapentin 300 MG Oral Capsule (Neurontin)Indicat ions:DDD (degenerative disc disease), lumbar Take 1 Capsule by mouth in the morning and 1 Capsule at noon and 1 Capsule before bedtime. take 1 capsule three times daily Strength: 300 mg. 90 Capsule 5 11/22/19 24 024 Discontin ued(Refil l) documented as of this encounter (statuses as of 01/14/2024) Active Problems Problem Noted Date Diagnosed Date [...] daily. Suspect she is gaining real wt. [facility] nursing continue to monitor. Spondylosis of [...] discuss her pain concerns. She is aware [facility] does not manage chronic pain meds. With her history of confusion, would recommend against use of narcotic medication. Mild aortic stenosis 07/27/2021 Assessment & Plan (08/03/2022 11:39 AM EDT): Following with cardiology Aortocoronary bypass status 03/09/2021 Chronic atrial fibrillation 03/01/2021 Overview (03/09/2021): new onset, [facility] on apixaban Assessment & Plan (01/14/2024 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[place] ronary artery of [place] heart without angina pectoris Assessment & Plan [...] as of this encounter (statuses as of 01/14/2024) Resolved Problems Problem Noted Date Diagnosed Date [...] 06/30/2014 06/26/2017 Overview (07/15/2014): hgb 7.4 admitted [facility] [...] as of this encounter (statuses as of 01/14/2024) Immunizations Name Administration Dates Next Due COVID-19 [...] the money to buy more. Never true 12/26/19 24 Within the past 12 months, t he food you bought just didn't last and you didn't have money to get more. Never true 12/26/2023 Childcare Answer Date Recorded Do you feel overwhelmed with taking care of a child, family member or friend? No 12/26/2023 Does your family need help f inding childcare? (Household - for ages 0-17 years) Not on file 12/26/2023 Clothing Answer Date Recorded Have you been unable to get clothing when it was really needed? No 12/26/2023 Is your family able to get c lothes or diapers when needed? (Household - for ages 0-17 years) Not on file 12/26/2023 Personal Safety Answer Date Recorded Do you feel unsafe or have concerns for your saf ety? No 12/26/2023 Do you have concerns for you r family's safety? (Household - for ages 0-17 years) Not on file 12/26/2023 Utilities Answer Date Recorded Do you have trouble paying y our heating, water, or electric bill? No 12/26/2023 Is your family able to pay t he heat, water, or electric bill? (Household - for ages 0-17 years) Not on file 12/26/2023 Does your family have access to good internet? (Household - for ages 0-17 years) Not on file 12/26/2023 Employment Status Answer Date Recorded Are you unemployed or without regular income? No 12/26/2023 Does the household have a rustlar source of income? (Household - for ages 0-17 years) Not on file 12/26/2023 Social Connections Answer Date Recorded How often do you feel lonely or isolated from th ose around you? Never 12/26/2023 Financial Resource Strain Answer Date R ecorded Do you have any trouble payi ng for your medications, or do you think you might in the future? No 12/26/2023 Does your family have troubl e paying for medicine? (Household - for ages 0-17 years) Not on file 12/26/2023 Transportation Needs Answer Date Record ed READ ONLY Do you have troubl e getting a ride to medical visits or work? Never True 12/26/2023 Does your family have a hard time getting a ride to doctors visits? (Household - for ages 0-17 years) Not on file 12/26/2023 Has lack of transportation k ept you from medical appointments, meetings, work, or from getting things needed for daily living? Check all that apply. No 12/26/2023 Do you (or your family) have trouble finding or paying for a ride (transportation)? (Household - for ages 0-17 years) Not on file 12/26/2023 Housing Stability Answer Date Recorded Do you currently live in a s helter or have no steady place to sleep at night? No 12/26/2023 READ ONLY Do you think you a re at risk of becoming homeless? No 12/26/2023 Does your family worry about paying for your home or becoming homeless? (Household - for ages 0-17 years) Not on file 1 02/24/2023 Are you homeless or worried that you might be in the future? No 12/26/2023 Are you (or your family) earnest eless or worried that you might be in the future? (Household - for ages 0-17 years) Not on file Food Insecurity Answer Date Recorded Do you need food for this week? No 12/26/2023 Are you able to get enough f ood for your family? (Household - for ages 0-17 years) Not on file 12/26/2023 Does your family need food t his week? (Household - for ages 0-17 years) Not on file 12/26/2023 Do you always have enough fo od for your family? (Household - for ages 0-17 years) Not on file 12/26/2023 Comments No Sex and Gender Information Value Date Recorded Sex Assigned at Female 12/11/2022 6:31 PM EDT Legal Sex Female 5:53 AM EST Gender Identity Female 12/11/2022 6:31 PM EDT Sexual Orientation Straight 05/16/2023 10 :36 AM EDT documented as of this encounter Last Filed Vital Signs Vital Sign Reading Time Taken Comments Blood Pressure 122/70 01/14/2024 10:41 AM EST Pulse 70 01/14/2024 10:41 AM EST Temperature - - Respiratory Rate - - Oxygen Saturation 98% 01/14/2024 10:41 AM EST Inhaled Oxygen Concentration - - Weight - - Height - - Body Mass Index - - documented in this encounter Progress Notes * Anthony Ivy PA-C - 01/14/2024 10:18 AM EST Images from the original note were not included. [facility] Provider Visit Assessment and Plan Assessment & Plan Hypertensive heart and kidney disease with chronic diastolic congestive heart failure and stage 3b chronic kidney disease (HCC) "RED FLAG" HF Symptoms: Leg Swelling Abdominal [...] Comments: Euvolemic today Not on routine diuretics Chronic atrial fibrillation (HCC) Rate controlled Continue eliquis for stroke prevention Major depressive disorder with single episode, in partial remission (HCC) Mood stable today on buspar and trazodone Osteoarthritis of spine with radiculopathy, lumbar region Will decrease gabapentin to twice daily, was already skipping noon dose DDD (degenerative disc disease), lumbar Orders: Gabapentin 300 MG Oral Capsule (Neurontin); Take 1 Capsule by mouth in the morning and 1 Capsule before bedtime. 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 Overall seems to be managing at apartment Currently volunteering to care for neighbors pet for next 10 days Discussed importance of med compliance with patient Scheduled appointments in the next 60 days: Future Appointments-next 60 days Date/Time Provider Specialty Dept Phone 01/14/2024 1:00 PM Anthony Ivy PA-C [facility] [phone] 02/25/2024 11:40 AM (Arrive by 11:25 AM) Daren Varela CRNP Family Medicine [phone] 04/04/2024 2:40 PM (Arrive by 2:25 PM) Tirso Shah MD Nephrology [phone] 06/30/2024 10:00 AM (Arrive by 9:45 AM) Gilbert Calloway MD Family Medicine [phone] A total of 45 minutes was spent face to face (via video-based telemedicine if designated as a telemedicine visit) Subjective Subjective Is this a Telemedicine Visit? No, this is an Home Visit. Reason For [facility] Visit: Follow-Up Current Concerns: Zoya Howard is a 85 year old female seen today for a [facility] provider visit. PMH includes HFpEF, CAD s/p CABG, , HLD, CKD3, afib on eliquis, HTN, anxiety, depression 12/12-12/21/23 - [facility] - encephalopathy, KIM Today's concerns are: Overall reports feeling well States she isnt quite back to her baseline since returning from the hospital She is interested in getting home PT Had [facility] see her last week, but patient didn't think they were coming back Called [facility] , confirmed that patient was already referred and will be getting SN and PT visits once weekly She denies any SOB, cough Denies chest pain, fever/chills Appetite is good, although admits she is waiting for caregiver to grocery shop for her Also getting MOW Gets meds in pill packs Reviewed pill packs, fairly non compliant Skips gabapentin noon dose every day Skips evening meds 50% of days MOW Has caregiver m and f, 2 hours each, arias? Helps with house keeping and grocerires Meds in pill packs Additional Current Outpatient Medications Medication Sig Dispense Refill Gabapentin 300 MG Oral Capsule (Neurontin) Take 1 Capsule by mouth in the morning and 1 Capsule before bedtime. 120 Capsule 5 Acetaminophen 500 MG Oral Tablet (Tylenol) Take 1 Tablet by mouth in the morning and 1 Tablet at noon and 1 Tablet before bedtime. 100 Tablet 0 Advanced Probiotic Oral Capsule Take 1 Capsule by mouth in the morning. 30 Capsule 0 Apixaban 5 MG Oral Tablet (Eliquis) Take 1 Tablet by mouth in the morning and 1 Tablet before bedtime. 180 Tablet 3 Pantoprazole Sodium 40 MG Oral Tablet Delayed Release (Protonix) Take 1 Tablet by mouth in the morning and 1 Tablet before bedtime. 180 Tablet 2 Ondansetron HCl 4 MG Oral Tablet (Zofran) TAKE ONE TABLET BY MOUTH EVERY 6 HOURS NEEDED FOR NAUSEA 30 Tablet 1 Calcitriol 0.25 MCG Oral Capsule (Rocaltrol) One tablet by mouth every Sunday, Sunday and [place] Capsule 1 Loperamide HCl 2 MG Oral Capsule (Imodium) TAKE ONE CAPSULE BY MOUTH FOUR TIMES DAILY NEEDED 60 Capsule 1 busPIRone HCl 10 MG Oral Tablet (Buspar) Take 1 Tablet by mouth in the morning and 1 Tablet before bedtime. 60 Tablet 5 Rosuvastatin Calcium 10 MG Oral Tablet (Crestor) Take 1 Tablet by mouth at bedtime. 90 Tablet 2 traZODone HCl 150 MG Oral Tablet (Desyrel) Take 1 Tablet by mouth at bedtime. 90 Tablet 1 Levothyroxine Sodium 75 MCG Oral Tablet (Levoxyl) Take 1 Tablet by mouth daily first thing in the morning. (at least 30 min prior to breakfast or other meds) Metoprolol Succinate ER 25 MG Oral Tablet Extended Release 24 Hour (toPROL XL) Take 1.5 Tablets by mouth in the morning. 45 Tablet 3 No current facility-administered medications for this visit. I have reviewed the following results: CMP, Lipid Panel, Hemoglobin A1C, and TSH No results found for: "PRO BNP", "LEFT VENTRICULAR EJECTION FRACTION" Objective Objective Vitals: 01/14/24 1041 Pulse: 70 SpO2: 98% BP: 122/70 Last Weights: Wt Readings from Last 3 Encounters: 12/24/23 72.5 kg (159 lb 12.8 oz) 12/06/23 70.5 kg (155 lb 6.4 oz) 05/29/23 71.3 kg (157 lb 2 oz) Last BPs: BP Readings from Last 4 Encounters: 01/14/24 122/70 12/26/23 108/60 12/24/23 102/60 12/06/23 152/90 General: alert and no distress Neuro: alert & oriented x 3 with fluent speech Heart: irregularly irregular, + murmur Lungs: no chest wall tenderness, lungs clear to auscultation, no wheeze, no rales, no rhonchi Abdomen: abdomen soft, non-tender, and normal bowel sounds Ext: Normal extremities without edema documented in this encounter Miscellaneous Notes * Assessment & Plan Note - Anthony Ivy PA-C - 01/14/2024 10:32 PM EST Associated Problem(s): Hypertensive heart and kidney disease with chronic diastolic congestive heart failure and stage 3b chronic kidney disease (HCC) "RED FLAG" HF Symptoms: Leg Swelling Abdominal [...] Comments: Euvolemic today Not on routine diuretics * Assessment & Plan Note - Anthony Ivy PA-C - 01/14/2024 10:32 PM EST Associated Problem(s): Chronic atrial fibrillation (HCC) Rate controlled Continue eliquis for stroke prevention * Assessment & Plan Note - Anthony Ivy PA-C - 01/14/2024 10:32 PM EST Associated Problem(s): Major depressive disorder with single episode, in partial remission (HCC) Mood stable today on buspar and trazodone * Assessment & Plan Note - Anthony Ivy PA-C - 01/14/2024 10:32 PM EST Associated Problem(s): DDD (degenerative disc disease), lumbar Orders: Gabapentin 300 MG Oral Capsule (Neurontin); Take 1 Capsule by mouth in the morning and 1 Capsule before bedtime. * ACP (Advance Care Planning) - Anthony Ivy PA-C - 01/14/2024 10:31 PM EST Patient-centered Communication 01/14/2024 The patient/surrogate voluntarily agreed to participate in advance care planning discussion. They were advised that this is a separate service which may incur out of pocket cost in the form of copayment and/or deductibles. Location: Home Individual(s) present for conversation: Patient Decisions Synopsis SmartLink Most Recent Value Past ~10 years 01/14/2024 22:30 Decisions CPR decision: Patient chooses CPR 01/14/2024 Patient chooses CPR Intubation/Mechanical Ventilation decision: Patient chooses Intubation/mechanical ventilation 01/14/2024 Patient chooses Intubation/mechanical ventilation Non-invasive ventilation or BIPAP decision: Patient chooses non-invasive ventilation. Select interventions below 08/03/2022 Antibiotic therapy decision: Patient chooses Antibiotic therapy 01/14/2024 Patient chooses Antibiotic therapy IV hydration decision: Patient chooses IV hydration 01/14/2024 Patient chooses IV hydration Blood transfusion decision: Patient chooses Blood transfusion 08/03/2022 Lab draw decision: Patient chooses Lab draws 08/03/2022 Additional Comments Synopsis SmartLink Most Recent Value Past ~10 years 01/14/2024 22:30 Additional Comments Additional Comments: POLST on table in home 01/14/2024 POLST on table in home Discerning What Matters Most to the Patient: [...] Going back to the hospital;Going to a intermediate 05/02/2021 Going back to the hospital;Going to a intermediate The patient considers these as 'UNACCEPTABLE OUTCOMES': Prolonged intermediate stay (define below) 05/02/2021 Prolonged intermediate stay (define below) Prolonged intermediate stay, patient defines as: pt does not want to end up living detention in a intermediate. 05/02/2021 pt does not want to end up living detention in a intermediate. Source: Content from [employer] Aligning Care With What Matters Most: Synopsis SmartLink Most Recent Value Past ~10 years 01/14/2024 22:30 Aligning Care With What Matters Most Interventions/Choices: CPR;Intubation/mechanical ventilation;IV hydration;Antibiotic therapy 01/14/2024 CPR;Intubation/mechanical ventilation;IV hydration;Antibiotic therapy Rationale for Decisions Synopsis SmartLink Most Recent Value Past ~10 years 09/15/2021 14:06 Intubation/mechanical ventilation Their fears/concerns about Intubation/mechanical ventilation decision are: patient ok with short term 09/15/2021 patient ok with short term Source: Content from [employer] 10 minutes spent in direct [id number] discussion today, Anthony Ivy PA-C documented in this encounter Plan of Treatment Upcoming Encounters Date Type Department Care Team (Late st Contact Info) Description 02/25/2024 11:40 AM EST Office Visit Family Medicine [address] [phone] Daren Varela CRNP [address] [place] [address] [place] [address] 04/04/2024 2:40 PM EST Office Visit Nephrology, [facility] [address] [facility] [place] [address] Tirso Shah MD [address] [place] [address] 06/30/2024 10:00 AM EDT Office Visit Family [address] [phone] Gilbert Calloway MD [address] [place] [address] [place] [phone] Health Maintenance Due Date Last Done Comments DTap/Tdap Vaccines (1 - Tdap) 11/15/1957 Adult Wellness Visit 2002 Albumin/Creatinine Ratio 07/28/2023 023, 06/09/2020, 03/13/2019, Additional history exists COVID-19 Vaccine ( season) 2023 01/04/2021, 04/19/2020, 04/04/2020, Additional history exists TSH 12/05/2024 12/06/2023, 10/21, 07/27/2022, Additional history exists CKD HGB USE SMARTSET 54258 12/20/202412/20, 12/06/2023, 11/16/2023, Additional history exists CKD PHOS USE SMARTSET 80608 12/20/202402/2023, 11/16/2023, 10/04/2022, Additional history exists Depression Monitoring [...] Anxiety state Anxiety state, unspecified Atherosclerosis of [place] coronary artery of [place] heart without angina pectoris Acquired hypothyroidism Unspecified hypothyroidism Dyslipidemia, goal LDL below 100 Other and unspecified hyperlipidemia Aortic ectasia, thoracic (HCC) Thoracic aortic ectasia Chronic atrial fibrillation (HCC) Atrial fibrillation Benign hypertension with stage 3b chronic kidney disease (HCC) Advanced care planning/counseling discussion- Primary Other specified counseling Atherosclerosis of [place] coronary artery of [place] heart without angina pectoris Chronic atrial fibrillation [...] with single episode, in partial remission (HCC) Osteoarthritis of spine with radiculopathy, lumbar region DDD (degenerative disc disease), lumbar Degeneration of lumbar or lumbosacral intervertebral disc Advanced care planning/counseling discussion Other specified counseling documented in this encounter Care Teams Shuttle Buggy Operator Relationship Specialty Start Date End Date Gilbert Calloway MD [address] [place] [address] [place] [phone] PCP - General Family Medicine 07/30/23 documented as of this encounter
--- OUTSIDE RECORDS SUMMARY | 2024-03-16 09:40 | External Medical Summary | Summary of Care ---
Author Name Unknown Organization [facility] Address [address] [place] [address] Phone [phone] Care Team Providers Care Cut Out Stitcher Name Role Phone Gilbert Calloway MD Primary Care Provide r Reason for Visit * Reason Onset Date Comments Home Health 11/27/2023 Encounter Details Date Type Department Care Team (Late st Contact Info) Description 11/27/2023 Telephone Family Medicine [address] [place] [phone] Gilbert Calloway MD [address] [place] [address] [place] [address] Home Health Allergies Active Allergy Reactions Criticality Noted Date Comments Ergotamine 03/01/2000 vomit Nitroglycerin 03/14/2007 vomitting documented as of this encounter (statuses as of 02/26/2024) Medications Acetaminophen 500 MG Oral Tablet (Tylenol)Indicatio [...] at bedtime. 90 Tablet 1 4 Active documented as of this encounter (statuses as of 02/26/2024) Active Problems Problem Noted Date Diagnosed Date [...] daily. Suspect she is gaining real wt. [facility] nursing continue to monitor. Spondylosis of [...] Chronic atrial fibrillation 03/01/2021 Overview (03/09/2021): dionisio valenzuela [facility] on apixaban Assessment & Plan (01/14/2024 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[place] ronary artery of [place] heart without angina pectoris Assessment & Plan [...] as of this encounter (statuses as of 02/26/2024) Resolved Problems Problem Noted Date Diagnosed Date [...] 06/30/2014 06/26/2017 Overview (07/15/2014): hgb 7.4 admitted [facility] CKD [...] as of this encounter (statuses as of 02/26/2024) Immunizations Name Administration Dates Next Due COVID-19 [...] Miscellaneous Notes * Telephone Encounter - Daiana Will LPN - 11/27/2023 4:03 PM EDT Admission/Start of Care Admission/Start of Care: Prudence LUCIA, Calling from: Wes Patient was Admitted to: [facility] , for: pnuemonia and uti Referral received for: Long Term, PT, and OT Planned start of care date:Yes, Date 11/26 Vitals: T97.7 P67 RR18 BP128/82 SP O296%RA Lung soundsclear [id number] Blood sugarn/a Last Office Visit: 10/12/2023 Advised that orders will be signed by pcp and to fax to the office for signature. documented in this encounter Plan of Treatment Upcoming Encounters Date Type Department Care Team (Late st Contact Info) Description 04/04/2024 2:40 PM EST Office Visit Nephrology, [facility] [address] [facility] [address] Tirso Shah MD [address] [facility] [place] [address] 06/30/2024 10:00 AM EDT Office Visit Family Medicine [address] [phone] Gilbert Calloway MD [address] [place] [address] [place] [address] Health Maintenance Due Date Last Done Comments DTap/Tdap Vaccines (1 - Tdap) 11/15/1957 Adult Wellness Visit 2002 Albumin/Creatinine Ratio 07/28/2023 023, 06/09/2020, 03/13/2019, Additional history exists COVID-19 Vaccine (2023- season) 2023 01/04/2021, 04/19/2020, 04/04/2020, Additional history exists TSH 12/05/2024 12/06/2023, 10/21, 07/27/2022, Additional history exists CKD HGB USE SMARTSET 26848 12/20/202412/20, 12/06/2023, 11/16/2023, Additional history exists CKD PHOS USE SMARTSET [id number] 12/20/2024 11/0 02/2023, 11/16/2023, 10/04/2022, Additional history [...] filedocumented as of this encounter Care Teams Cut Out Stitcher Relationship Specialty Start Date End Date Gilbert Calloway MD [address] [place] [address] [place] [address] PCP - General Family Medicine 07/30/23 documented as of this encounter
--- OUTSIDE RECORDS SUMMARY | 2024-03-16 09:40 | External Medical Summary | Summary of Care ---
Author Name Unknown Organization [facility] Address [address] [place] [address] Phone [phone] Care Team Providers Care Bias Cutter Helper Name Role Phone Gilbert Calloway MD Primary Care Provide r Reason for Visit * Reason Comments eRx-Medication Refill Encounter Details Date Type Department Care Team (Late st Contact Info) Description 01/31/2024 Refill Family Medicine [address] [place] [phone] Gilbert Calloway MD [address] [place] [address] [place] [phone] Allergies Active Allergy Reactions Criticality Noted Date Comments Ergotamine 03/01/2000 vomit Nitroglycerin 03/14/2007 vomitting documented as of this encounter (statuses as of 02/01/2024) Medications Acetaminophen 500 MG Oral Tablet (Tylenol)Indicatio [...] as of this encounter (statuses as of 02/01/2024) Active Problems Problem Noted Date Diagnosed Date [...] daily. Suspect she is gaining real wt. [facility] nursing continue to monitor. Spondylosis [...] atrial fibrillation 03/01/2021 Overview (03/09/2021): new onset, [facility] on apixaban Assessment & Plan (01/14/2024 10:32 [...] as of this encounter (statuses as of 02/01/2024) Resolved Problems Problem Noted Date Diagnosed Date [...] 06/30/2014 06/26/2017 Overview (07/15/2014): hgb 7.4 admitted [facility] CKD (chronic kidney disease) stage 3, [...] as of this encounter (statuses as of 02/01/2024) Immunizations Name Administration Dates Next Due COVID-19 [...] Notes * Telephone Encounter - Alicia Atwood samara - 02/01/2024 9:45 AM ESTRefused Prescriptions: Disp Refills hydrOXYzine HCl 10 MG Oral Tablet (Atarax) 30 Tab*1 Sig: TAKE ONE TABLET BY MOUTH EVERY 8 HOURS NEEDED FOR ANXIETYRefused By: ALICIA ATWOOD for Refusal: Refill Not Appropriate documented in this encounter Plan of Treatment Upcoming Encounters Date Type Department Care Team (Late st Contact Info) Description 02/25/2024 11:40 AM EST Office Visit Family Medicine [address] [phone] Daren Varela [address] [place] [address] 04/04/2024 2:40 PM EST Office Visit Nephrology, [facility] [address] [place] [address] Tirso Shah MD [address] [place] [address] 06/30/2024 10:00 AM EDT Office Visit Family Medicine [address] [place] [phone] Gilbert Calloway MD [address] [place] [address] [place] [address] Health Maintenance Due Date Last Done Comments DTap/Tdap Vaccines (1 - Tdap) 11/15/1957 Adult Wellness Visit 2002 Albumin/Creatinine Ratio 07/28/2023 023, 06/09/2020, 03/13/2019, Additional history exists COVID-19 Vaccine ( season) 2023 01/04/2021, 04/19/2020, 04/04/2020, Additional history exists TSH 12/05/2024 12/06/2023, 10/21, 07/27/2022, Additional history exists CKD HGB USE SMARTSET 78903 12/20/202412/20, 12/06/2023, 11/16/2023, Additional history exists CKD PHOS USE SMARTSET 21937 12/20/202402/2023, 11/16/2023, 10/04/2022, Additional history exists Depression [...] filedocumented as of this encounter Care Teams Bias Cutter Helper Relationship Specialty Start Date End Date Gilbert Calloway MD [address] [place] [address] [place] [phone] PCP - General Family Medicine 07/30/23 documented as of this encounter
--- OUTSIDE RECORDS SUMMARY | 2024-03-16 09:40 | External Medical Summary | Summary of Care ---
Author Name Unknown Organization [facility] Address [address] [place] [address] Phone [phone] Care Team Providers Care Gel Coater Name Role Phone Gilbert Calloway MD Primary Care Provide r Encounter Details Date Type Department Care Team (Late st Contact Info) Description 02/21/2024 Population Health External Data Unspecified Department Allergies [...] daily. Suspect she is gaining real wt. [facility] nursing continue to monitor. Spondylosis of [...] discuss her pain concerns. She is aware [facility] does not manage chronic pain meds. With her history of confusion, would recommend against use of narcotic medication. Mild aortic stenosis 07/27/2021 Assessment & Plan (08/03/2022 11:39 AM EDT): Following with cardiology Aortocoronary bypass status 03/09/2021 Chronic atrial fibrillation 03/01/2021 Overview (03/09/2021): dionisio valenzuela, [facility] on apixaban Assessment & Plan (01/14/2024 10:32 [...] artery of [place] heart without angina pectoris Assessment & Plan [...] 06/30/2014 06/26/2017 Overview (07/15/2014): hgb 7.4 admitted [facility] CKD [...] Nephrology, Caroline Sparks [address] [place] [address] Tirso Shah MD [address] [place] [address] 06/30/2024 10:00 AM EDT Office Visit Family Medicine [address] [phone] Gilbert Calloway MD [address] [place] [address] [place] [address] Health Maintenance Due Date Last Done Comments DTap/Tdap Vaccines (1 - Tdap) 11/15/1957 Adult Wellness Visit 2002 Albumin/Creatinine Ratio 07/28/2023 023, 06/09/2020, 03/13/2019, Additional history exists COVID-19 Vaccine ( season) 2023 01/04/2021, 04/19/2020, 04/04/2020, Additional history exists TSH 12/05/2024 12/06/2023, 10/21, 07/27/2022, Additional history exists CKD HGB USE SMARTSET 99203 12/20/202412/20, 12/06/2023, 11/16/2023, Additional history exists CKD PHOS USE SMARTSET 80903 12/20/2024 11/0 02/2023, 11/16/2023, 10/04/2022, Additional history [...] filedocumented as of this encounter Care Teams Gel Coater Relationship Specialty Start Date End Date Gilbert Calloway MD [address] [place] [address] [place] [phone] PCP - General Family Medicine 07/30/23 documented as of this encounter
--- OUTSIDE RECORDS SUMMARY | 2024-03-16 09:40 | External Medical Summary | Summary of Care ---
Author Name Unknown Organization [facility] Address [address] [place] [address] Phone [phone] Care Team Providers Care Fur Examiner Name Role Phone Gilbert Calloway MD Primary Care Provide r Reason for Visit * Reason Comments eRx-Medication Refill Encounter Details Date Type Department Care Team (Late st Contact Info) Description 02/14/2024 Refill Family Medicine [address] [place] [phone] Gilbert Calloway MD [address] [place] [address] [place] [address] Nausea Allergies Active Allergy Reactions Criticality Noted Date Comments Ergotamine 03/01/2000 vomit Nitroglycerin 03/14/2007 vomitting documented as of this encounter (statuses as of 02/14/2024) Medications Acetaminophen 500 MG Oral Tablet (Tylenol)Indicati [...] NAUSEA 30 Tablet 2 02/14/20 24 Active Ondansetron HCl 4 MG Oral Tablet (Zofran)Indicatio ns:Nausea TAKE ONE TABLET BY MOUTH EVERY 6 HOURS NEEDED FOR NAUSEA 30 Tablet 1 11/22/19 24 024 Discontinued documented as of this encounter (statuses as of 02/14/2024) Active Problems Problem Noted Date Diagnosed Date [...] daily. Suspect she is gaining real wt. [facility] nursing continue to monitor. Spondylosis of lumbar [...] atrial fibrillation 03/01/2021 Overview (03/09/2021): new onset, [facility] on apixaban Assessment & Plan (01/14/2024 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[place] co ronary artery of [place] heart without angina pectoris Assessment & Plan [...] as of this encounter (statuses as of 02/14/2024) Resolved Problems Problem Noted Date Diagnosed Date [...] 06/30/2014 06/26/2017 Overview (07/15/2014): hgb 7.4 admitted [facility] [...] as of this encounter (statuses as of 02/14/2024) Immunizations Name Administration Dates Next Due COVID-19 [...] encounter Miscellaneous Notes * Telephone Encounter - Aura Healy RP - 02/14/2024 11:22 AM EST Signed Prescriptions: Disp Refills Ondansetron HCl 4 MG Oral Tablet (Zofran) 30 Tab*2 Sig: TAKE ONE TABLET BY MOUTH EVERY 6 HOURS NEEDED FOR NAUSEA Authorizing Provider: GILBERT CALLOWAY Ordering User: AURA HEALY * Telephone Encounter - Edyta Zhou, art objects salesperson - 02/14/2024 11:10 AM EST Did you pend patient's preferred pharmacy and medication before forwarding?yes Pharmacy: [facility], [facility]-[address] [place] Pending Prescriptions: Disp Refills Ondansetron HCl 4 MG Oral Tablet (Zofran)*30 Tab*2 Sig: TAKE ONE TABLET BY MOUTH EVERY 6 HOURS NEEDED FOR NAUSEA Last Visit: 12/24/2023 (in office), 01/10/2023 (telemedicine) Next Visit: 02/25/2024 If no future appointments scheduled, and last [...] Description 02/25/2024 11:40 AM EST Office Visit [address] [phone] Daren Varela CRNP [address] [place] [address] [place] [address] 04/04/2024 2:40 PM EST Office Visit Nephrology, [facility] 200 [facility] [place] [address] Tirso Shah MD [address] [facility] [place] [address] 06/30/2024 10:00 AM EDT Office Visit [address] [phone] Gilbert Calloway MD [address] [place] [address] [place] [address] Health Maintenance Due Date Last Done Comments DTap/Tdap Vaccines (1 - Tdap) 11/15/1957 Adult Wellness Visit 2002 Albumin/Creatinine Ratio 07/28/2023 023, 06/09/2020, 03/13/2019, Additional history exists COVID-19 Vaccine ( season) 2023 01/04/2021, 04/19/2020, 04/04/2020, Additional history exists TSH 12/05/2024 12/06/2023, 10/21, 07/27/2022, Additional history exists CKD HGB USE SMARTSET 38969 12/20/202412/20, 12/06/2023, 11/16/2023, Additional history exists CKD PHOS USE SMARTSET 74971 12/20/202402/2023, 11/16/2023, 10/04/2022, Additional history exists Depression [...] Anxiety state Anxiety state, unspecified Atherosclerosis of [place] coronary artery of [place] heart without angina pectoris Acquired hypothyroidism Unspecified hypothyroidism Dyslipidemia, goal LDL below 100 Other and unspecified hyperlipidemia Aortic ectasia, thoracic (HCC) Thoracic aortic ectasia Chronic atrial fibrillation (HCC) Atrial fibrillation 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
--- OUTSIDE RECORDS SUMMARY | 2024-03-16 09:40 | External Medical Summary | Summary of Care ---
Author Name Unknown Organization [facility] Address [address] [place] [address] Phone [phone] Care Team Providers Care Insurance Special Agent Name Role Phone Gilbert Calloway MD Primary Care Provide r Reason for Visit * Reason Onset Date Comments Medication Refill 01/18/2024 Encounter Details Date Type Department Care Team (Late st Contact Info) Description 01/18/2024 Refill Family Medicine [address] [place] [phone] Gilbert Calloway MD [address] [place] [address] [place] [address] Allergies Active Allergy Reactions Criticality Noted Date Comments Ergotamine 03/01/2000 vomit Nitroglycerin 03/14/2007 vomitting documented as of this encounter (statuses as of 01/18/2024) Medications Acetaminophen 500 MG Oral Tablet (Tylenol)Indicatio [...] meds) 90 Tablet 3 01/18/20 24 Active Levothyroxine Sodium 75 MCG Oral Tablet (Levoxyl) Take 1 Tablet by mouth daily first thing in the morning. (at least 30 min prior to breakfast or other meds) 12/24/19 24 024 Discontin ued(Refil l) documented as of this encounter (statuses as of 01/18/2024) Active Problems Problem Noted Date Diagnosed Date [...] daily. Suspect she is gaining real wt. [facility] nursing continue to monitor. Spondylosis [...] 03/01/2021 Overview (03/09/2021): new onset, [facility] on apixaban Assessment & Plan (01/14/2024 10:32 [...] artery of [place] heart without angina pectoris Assessment & Plan [...] as of this encounter (statuses as of 01/18/2024) Resolved Problems Problem Noted Date Diagnosed Date [...] Overview (07/15/2014): hgb 7.4 admitted [facility] CKD (chronic kidney disease) stage 3, [...] as of this encounter (statuses as of 01/18/2024) Immunizations Name Administration Dates Next Due COVID-19 [...] No 12/26/2023 Does the household have a [facility] source of income? (Household - for [...] encounter Miscellaneous Notes * Telephone Encounter - Alfredo Taylor MD - 01/18/2024 10:53 AM ESTSigned Prescriptions: Disp Refills Levothyroxine Sodium 75 MCG Oral Tablet (L*90 Tab*3 Sig: Take 1 Tablet by mouth daily first thing in the morning. (at least 30 min prior to breakfast or other meds) Authorizing Provider: ALFREDO TAYLOR * Telephone Encounter - Chrissy Frazier CMA - 01/18/2024 10:14 AM EST Pending Prescriptions: Disp Refills Levothyroxine Sodium 75 MCG Oral Tablet (L* Sig: Take 1 Tablet by mouth daily first thing in the morning. (at least 30 min prior to breakfast or other meds) * Telephone Encounter - Chhaya Motley, TAM - 01/18/2024 9:29 AM EST Did you pend patient's preferred pharmacy and medication before forwarding?yes Pharmacy: [facility], [address] [place] Pending Prescriptions: Disp Refills Levothyroxine Sodium 75 MCG Oral Tablet (* Sig: Take 1 Tablet by mouth daily first thing in the morning. (at least 30 min prior to breakfast or other meds) Last Visit: 12/24/2023 (in office), 01/10/2023 (telemedicine) Next Visit: 02/25/2024 If no future appointments scheduled, and last appointment is greater than a year ago, please schedule patient for a follow-up appointment Last date the medication was ordered: 12.24.23 Is this request for a controlled substance?No [...] found in Results Review. Patient Phone Numbers [place] [phone] Labs: Lab Results Component Value Date/Time CREAT [...] 02/25/2024 11:40 AM EST Office Visit Family [address] [phone] Daren Varela CRNP [address] [place] [address] [place] [address] 04/04/2024 2:40 PM EST Office Visit Nephrology, [facility] 200 [facility] [place] [address] Tirso Shah MD [address] [place] [address] 06/30/2024 10:00 AM EDT Office Visit Family Medicine [address] [place] [phone] Gilbert Calloway MD [address] [place] [address] [place] [address] Health Maintenance Due Date Last Done Comments DTap/Tdap Vaccines (1 - Tdap) 11/15/1957 Adult Wellness Visit 2002 Albumin/Creatinine Ratio 07/28/2023 023, 06/09/2020, 03/13/2019, Additional history exists COVID-19 Vaccine ( season) 2023 01/04/2021, 04/19/2020, 04/04/2020, Additional history exists TSH 12/05/2024 12/06/2023, 10/21, 07/27/2022, Additional history exists CKD HGB USE SMARTSET 79958 12/20/202412/20, 12/06/2023, 11/16/2023, Additional history exists CKD PHOS USE SMARTSET 86067 12/20/2024 1102/2023, 11/16/2023, 10/04/2022, Additional history exists [...] as of this encounter Care Teams Insurance Special Agent Relationship Specialty Start Date End Date Gilbert Calloway MD [address] [place] [address] [place] [address] PCP - General Family Medicine 07/30/23 documented as of this encounter
--- OUTSIDE RECORDS SUMMARY | 2024-03-16 09:40 | External Medical Summary | Summary of Care ---
Author Name Unknown Organization [facility] Address [address] [place] [address] Phone [phone] Care Team Providers Care Color Maker Dyer Name Role Phone Gilbert Calloway MD Primary Care Provide r Reason for Visit * Reason Onset Date Comments Advice 01/15/2024 Encounter Details Date Type Department Care Team (Late st Contact Info) Description 01/15/2024 Telephone Family Medicine [address] [place] [phone] Gilbert Calloway MD [address] [place] [address] [place] [phone] Advice Allergies Active Allergy Reactions Criticality Noted Date Comments Ergotamine 03/01/2000 vomit Nitroglycerin 03/14/2007 vomitting documented as of this encounter (statuses as of 01/15/2024) Medications Acetaminophen 500 MG Oral Tablet (Tylenol)Indicatio [...] 90 Tablet 1 4 Active Levothyroxine Sodium 75 MCG Oral Tablet (Levoxyl) Take 1 Tablet by mouth daily first thing in the morning. (at least 30 min prior to breakfast or other meds) 4 Active Metoprolol Succinate ER 25 MG Oral Tablet Extended Release 24 Hour (toPROL XL) Take 1.5 Tablets by mouth in the morning. 45 Tablet 3 4 Active Gabapentin 300 MG Oral Capsule (Neurontin)Indicat ions:DDD (degenerative disc disease), lumbar Take 1 Capsule by mouth in the morning and 1 Capsule before bedtime. 120 Capsule 5 4 Active documented as of this encounter (statuses as of 01/15/2024) Active Problems Problem Noted Date Diagnosed Date [...] daily. Suspect she is gaining real wt. [facility] nursing continue to monitor. Spondylosis 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[place] co ronary artery of [place] heart without angina pectoris Assessment & Plan [...] as of this encounter (statuses as of 01/15/2024) Resolved Problems Problem Noted Date Diagnosed Date [...] as of this encounter (statuses as of 01/15/2024) Immunizations Name Administration Dates Next Due COVID-19 [...] No 12/26/2023 Does the household have a re gular [...] encounter Miscellaneous Notes * Telephone Encounter - Jasmine Trinidad LPN - 01/15/2024 2:02 PM EST Shelby from [facility] is calling to confirm that orders (add on discipline from Nursing and PTfor certification period dated 11/26-01/24) were received. I could not find these scanned in. Shelby will fax there to the office for signature. FYI. * Telephone Encounter - Maylin Barfield RN - 01/15/2024 1:22 PM EST I called [facility], Narayan is at lunch. They will have her call back to [phone] * Telephone Encounter - Tiago Ayala OSA - 01/15/2024 12:36 PM EST Shelby from [facility]. Tried to transfer to [facility] with no answer. Please call her back at [phone]. documented in this encounter Plan of Treatment Upcoming Encounters Date Type Department Care Team (Late st Contact Info) Description 02/25/2024 11:40 AM EST Office Visit [address] [phone] Daren Varela CRNP [address] [place] [address] [place] [address] 04/04/2024 2:40 PM EST Office Visit Nephrology, [facility] [address] [facility] [address] [place] [address] Tirso Shah MD [address] [place] [address] 06/30/2024 10:00 AM EDT Office Visit [address] [place] [phone] Gilbert Calloway MD [address] [place] [address] [place] [address] Health Maintenance Due Date Last Done Comments DTap/Tdap Vaccines (1 - Tdap) 11/15/1957 Adult Wellness Visit 2002 Albumin/Creatinine Ratio 07/28/2023 023, 06/09/2020, 03/13/2019, Additional history exists COVID-19 Vaccine ( season) 2023 01/04/2021, 04/19/2020, 04/04/2020, Additional history exists TSH 12/05/2024 12/06/2023, 10/21, 07/27/2022, Additional history exists CKD HGB USE SMARTSET 83064 12/20/202412/20, 12/06/2023, 11/16/2023, Additional history exists CKD PHOS USE SMARTSET 83381 12/20/2024 1102/2023, 11/16/2023, 10/04/2022, Additional history exists [...] filedocumented as of this encounter Care Teams Color Maker Dyer Relationship Specialty Start Date End Date Gilbert Calloway MD [address] [place] [address] [place] [address] PCP - General Family Medicine 07/30/23 documented as of this encounter
--- OUTSIDE RECORDS SUMMARY | 2024-03-16 09:40 | External Medical Summary | Summary of Care ---
Author Name Unknown Organization [facility] Address [address] [place] [address] Phone [phone] Care Team Providers Care Assurance Manager Name Role Phone Gilbert Calloway MD Primary Care Provide r Reason for Visit * Reason Comments eRx-Medication Refill Encounter Details Date Type Department Care Team (Late st Contact Info) Description 03/05/2024 Refill Family Medicine [address] [place] [phone] Gilbert Calloway MD [address] [place] [address] [place] [address] Allergies Active Allergy Reactions Criticality Noted Date Comments Ergotamine 03/01/2000 vomit Nitroglycerin 03/14/2007 vomitting documented as of this encounter (statuses as of 03/06/2024) Medications Acetaminophen 500 MG Oral Tablet (Tylenol)Indicatio [...] as of this encounter (statuses as of 03/06/2024) Active Problems Problem Noted Date Diagnosed Date [...] daily. Suspect she is gaining real wt. [facility] nursing continue to monitor. Spondylosis [...] atrial fibrillation 03/01/2021 Overview (03/09/2021): new onset, [facility] on apixaban Assessment & Plan (01/14/2024 10:32 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[place] co ronary artery of [place] heart without angina pectoris Assessment & Plan [...] as of this encounter (statuses as of 03/06/2024) Resolved Problems Problem Noted Date Diagnosed Date [...] 06/30/2014 06/26/2017 Overview (07/15/2014): hgb 7.4 admitted [facility] as of this encounter (statuses as of 03/06/2024) Immunizations Name Administration Dates Next Due COVID-19 [...] encounter Miscellaneous Notes * Telephone Encounter - Carlos Alberto Ely [facility] - 03/06/2024 6:10 AM ESTRefused Prescriptions: Disp Refills hydrOXYzine HCl 10 MG Oral Tablet (Atarax) 30 Tab*1 Sig: TAKE ONE TABLET BY MOUTH EVERY 8 HOURS NEEDED FOR ANXIETYRefused By: CARLOS ALBERTO ELY LReason for Refusal: Course of treatment complete documented in this encounter Plan of Treatment Upcoming Encounters Date Type Department Care Team (Late st Contact Info) Description 04/04/2024 2:40 PM EST Office Visit NephrologyCar[place] [address] [place] [address] Tirso Shah MD [address] [place] [address] 06/30/2024 10:00 AM EDT Office Visit Family Medicine [address] [place] [phone] Gilbert Calloway MD [address] [place] [address] [place] [address] Health Maintenance Due Date Last Done Comments DTap/Tdap Vaccines (1 - Tdap) 11/15/1957 Adult Wellness Visit 2002 Albumin/Creatinine Ratio 07/28/2023 023, 06/09/2020, 03/13/2019, Additional history exists COVID-19 Vaccine ( season) 2023 01/04/2021, 04/19/2020, 04/04/2020, Additional history exists TSH 12/05/2024 12/06/2023, 10/21, 07/27/2022, Additional history exists CKD HGB USE SMARTSET 80478 12/20/202412/20, 12/06/2023, 11/16/2023, Additional history exists CKD PHOS USE SMARTSET 66745 12/20/2024 1102/2023, 11/16/2023, 10/04/2022, Additional history exists [...] filedocumented as of this encounter Care Teams Assurance Manager Relationship Specialty Start Date End Date Gilbert Calloway MD [address] [place] [address] [place] [address] PCP - General Family Medicine 07/30/23 documented as of this encounter
--- OUTSIDE RECORDS SUMMARY | 2024-03-16 09:41 | External Medical Summary | Summary of Care ---
Author Name Unknown Organization [facility] Address [address] [facility] [place] [address] Phone [phone] Care Team Providers Care Ice Cream Shop Associate Name Role Phone Gilbert Calloway MD Primary Care Provide r Reason for Visit * Reason Onset Date Comments Home Health 12/31/2023 Encounter Details Date Type Department Care Team (Late st Contact Info) Description 12/31/2023 Telephone Family Medicine [address] [place] [phone] Gilbert Calloway MD [address] [place] [address] [place] [address] Home Health Allergies Active Allergy Reactions Criticality Noted Date Comments Ergotamine 03/01/2000 vomit Nitroglycerin 03/14/2007 vomitting documented as of this encounter (statuses as of 12/31/2023) Medications Acetaminophen 500 MG Oral Tablet (Tylenol)Indicatio [...] before bedtime. 60 Tablet 5 4 Active Gabapentin 300 MG Oral Capsule (Neurontin)Indicat ions:DDD (degenerative disc disease), lumbar Take 1 Capsule by mouth in the morning and 1 Capsule at noon and 1 Capsule before bedtime. take 1 capsule three times daily Strength: 300 mg. 90 Capsule 5 4 Active Rosuvastatin Calcium 10 MG [...] the morning. 45 Tablet 3 4 Active documented as of this encounter (statuses as of 12/31/2023) Active Problems Problem Noted Date Diagnosed Date Cognitive deficits 11/28/2023 Full code status 11/15/2023 Anxiety state 2023 Major depressive disorder wi th single episode, in partial remission 10/12/2023 Hypercalcemia 12/15/2022 Assessment & Plan (12/15/2022 1:07 PM EDT): No longer on supplementation. Follow up with nephrology (HFpEF) heart failure with preserved ejection fr action 12/07/2022 Overview (12/18/2022): Ca 11.6 Hiatal hernia 12/07/2022 Overview (12/18/2022): moderate Hypertensive heart and kidne y disease with chronic diastolic congestive heart failure and stage 3b chronic kidney disease 07/27/2021 Assessment & Plan (12/15/2022 1:06 PM EDT): [...] daily. Suspect she is gaining real wt. [facility] nursing continue to monitor. Spondylosis of lumbar [...] 03/09/2021 Chronic atrial fibrillation 03/01/2021 Overview (03/09/2021): [facility] on apixaban Assessment & Plan (12/15/2022 1:03 PM EDT): [...] disease), lumbar 04/16/19 18 Assessment & Plan (08/03/2022 11:46 AM EDT): [...] is sleeping much better since on remeron. Low back pain radiating to left leg 03/19/2012 GENERAL OSTEOARTHROSIS 03/18/2004 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[place] ronary artery of [place] heart without angina pectoris Assessment & Plan [...] as of this encounter (statuses as of 12/31/2023) Resolved Problems Problem Noted Date Diagnosed Date [...] 06/30/2014 06/26/2017 Overview (07/15/2014): hgb 7.4 admitted [facility] CKD (chronic kidney disease) stage 3, GFR 30-59 ml/min 07/03/2013 05/07/2014 Overview (07/04/2013): GFR 36.9 Dyslipidemia, goal LDL below 100 [...] as of this encounter (statuses as of 12/31/2023) Immunizations Name Administration Dates Next Due COVID-19 [...] Telephone Encounter - Jasmine Trinidad LPN - 12/31/2023 10:19 AM EST HH Concerns FARIDEH Barnett, Calling from: [facility] Report/Concerns of: BP elevation and SOB Symptoms: sob- at rest and exertion that lasted 10 minutes. Vitals: T 98.9 P 63-64 RR 18 BP 178/78 SP O2 97 % RA Lung sounds clear Weight 158 lbs. Narrative: States that the pt reported having and episode of SOB today. SOB episode lasted about 10minutes, tops and that she gets these episodes all the time- once every 2 weeks. Pt denied having chest pain during the episode. Denies respiratory distress. BP is 178/78. Has not taken morning meds yet. Pt also denied dizziness/lightheadedness, headache, visual changes and current chest pain. Call back FARIDEH Barnett with any advice or orders at [phone] Please fax new orders to [facility] [phone] documented in this encounter Plan of Treatment Upcoming Encounters Date Type Department Care Team (Late st Contact Info) Description 01/01/2024 10:00 AM EST Office Visit Family Medicine [address] [place] [phone] Gilbert Calloway MD [address] [place] [address] [place] [address] 01/02/2024 11:00 AM EST Nurse Only Ancillary [address] [place] [address] [place], Nurse [address] [place] [address] 01/03/2024 2:00 PM EST [facility] Visit [facility] [address] [place] [address] Lana Lieberman, KHARI [address] [place] [address] 01/14/2024 1:00 PM EST Home Visit [facility] [address] [place] [address] Anthony Ivy PA-C [address] [place] [place] [address] 02/25/2024 11:40 AM EST Office Visit [address] [phone] Daren Varela CRNP [address] [place] [address] [place] [address] 04/04/2024 2:40 PM EST Office Visit Nephrology, [facility] [place] [address] Tirso Shah MD [address] [facility] [place] [address] 06/30/2024 10:00 AM EDT Office Visit Family [address] [phone] Gilbert Calloway MD [address] [place] [address] [place] [address] Health Maintenance Due Date Last Done Comments DTap/Tdap Vaccines (1 - Tdap) 11/15/1957 Adult Wellness Visit 2002 Albumin/Creatinine Ratio 07/28/2023 023, 06/09/2020, 03/13/2019, Additional history exists COVID-19 Vaccine ( season) 2023 01/04/2021, 04/19/2020, 04/04/2020, Additional history exists TSH 12/05/2024 12/06/2023, 10/21, 07/27/2022, Additional history exists CKD HGB USE SMARTSET 27029 12/20/202412/20, 12/06/2023, 11/16/2023, Additional history exists CKD PHOS USE SMARTSET 12597 12/20/2024 11/0 02/2023, 11/16/2023, 10/04/2022, Additional history [...] filedocumented as of this encounter Care Teams Ice Cream Shop Associate Relationship Specialty Start Date End Date Gilbert Calloway MD [address] [place] [address] [place] [phone] PCP - General Family Medicine 07/30/23 documented as of this encounter
--- OUTSIDE RECORDS SUMMARY | 2024-03-16 09:41 | External Medical Summary | Summary of Care ---
Author Name Unknown Organization [facility] Address [address] [facility] [place] [address] Phone [phone] Care Team Providers Care Letter Stamping Machine Operator Name Role Phone Gilbert Calloway MD Primary Care Provide r Encounter Details Date Type Department Care Team (Late st Contact Info) Description 12/14/2023 Result Scan Unspecified Department <No scans attached> Allergies Active Allergy Reactions Criticality Noted Date Comments Ergotamine 03/01/2000 vomit Nitroglycerin 03/14/2007 vomitting documented as of this encounter (statuses as of 12/25/2023) Medications Medication Sig Dispensed Refills Start Date End Date Status Acetaminophen 500 MG Oral Tablet (Tylenol)Indications: Generalized osteoarthritis Take 1 Tablet by mouth in the morning and 1 Tablet at noon and 1 Tablet before bedtime. 100 Tablet 04/09/2023 Active Advanced Probiotic Oral Capsule Take 1 Capsule by mouth in the morning. 30 Capsule 11/22/2023 Active Apixaban 5 MG Oral Tablet [...] before bedtime. 180 Tablet 2 11/22/2023 Active Ondansetron HCl 4 MG Oral [...] 300 mg. 90 Capsule 5 11/22/2023 Active Rosuvastatin Calcium 10 MG Oral Tablet (Crestor)Indications: Dyslipidemia, goal LDL below 100 Take 1 Tablet by mouth at bedtime. 90 Tablet 2 11/22/2023 Active traZODone HCl 150 MG Oral Tablet (Desyrel)Indications: Persistent insomnia Take 1 Tablet by mouth at bedtime. 90 Tablet 1 11/22/2023 Active Metoprolol Succinate ER 25 MG Oral Tablet Extended Release 24 Hour (toPROL XL) Take 1.5 Tablets by mouth in the morning. In the morning.. 30 Tablet 12/14/2023 Active documented as of this encounter (statuses as of 12/25/2023) Active Problems Problem Noted Date Diagnosed Date [...] Chronic atrial fibrillation 03/01/2021 Overview: new onset, [facility] on apixaban Last Assessment & Plan: Her 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[place] co ronary artery of [place] heart without angina pectoris Last Assessment & Plan: Stable no angina -continue rosuvastatin, metopropolol, Primary hypertension Gastroesophageal reflux dise ase with esophagitis without hemorrhage Last Assessment & Plan: symptoms controlled on pantoprazole Scoliosis of lumbar spine Mixed incontinence urge and stress (male)(female ) documented as of this encounter (statuses as of 12/25/2023) Resolved Problems Problem Noted Date Diagnosed Date [...] 07/28/2007 06/01/2017 ADVANCE DIRECTIVE INFORMATION 07/13/2004 12/24/2023 Overview: No, Advance Directive brochure given to [...] as of this encounter (statuses as of 12/25/2023) Immunizations Name Administration Dates Next Due COVID-19 [...] Description 12/26/2023 4:00 PM EST [facility] 132 [facility] [place] [address] Lana Lieberman RN 132 [facility] [place] [address] 01/02/2024 11:00 AM EST Nurse Only Ancillary [address] [place] [address] [place], Nurse [address] [place] [address] 01/14/2024 1:00 PM EST [facility] Visit [facility] [place], [facility] [place] [address] Anthony Ivy PA-C [address] [place] [address] 02/25/2024 11:40 AM EST Office Visit Family [address] [phone] Daren Varela CRNP [address] [place] [address] [place] [address] 04/04/2024 2:40 PM EST Office Visit Nephrology, [facility] [address] [place] [address] Tirso Shah MD [address] [place] [address] 06/30/2024 10:00 AM EDT Office Visit Family [address] [place] [phone] Gilbert Calloway MD [address] [place] [address] [place] [address] Health Maintenance Due Date Last Done Comments DTap/Tdap Vaccines (1 - Tdap) 11/15/1957 Adult Wellness Visit 2002 Albumin/Creatinine Ratio 07/28/2023 023, 06/09/2020, 03/13/2019, Additional history exists COVID-19 Vaccine ( season) 2023 01/04/2021, 04/19/2020, 04/04/2020, Additional history exists CKD PHOS USE SMARTSET 85987 11/15/202402/2023, 11/16/2023, 10/04/2022, Additional history exists CKD HGB USE SMARTSET 96482 12/05/202412/20, 12/06/2023, 11/16/2023, Additional history exists TSH 12/05/2024 12/06/2023, 10/21, 07/27/2022, Additional history exists Depression Monitoring 12/23/2024 12/24/2023 [...] Procedure Name Priority Date/Time Associated Diagnosis Comments ECHOCARDIOLOGY SCANNED RESULT 12/14/2023 documented in this encounter Results * ECHOCARDIOLOGY SCANNED RESULT (12/14/2023) 12/14/2023 No Physician Data Unknown ECHOCARDIOLOGY documented in this encounter Care Teams Letter Stamping Machine Operator Relationship Specialty Start Date End Date Gilbert Calloway MD [address] [place] [address] [place] [phone] PCP - General Family Medicine 07/30/23 documented as of this encounter
--- OUTSIDE RECORDS SUMMARY | 2024-03-16 09:41 | External Medical Summary | Summary of Care ---
Author Name Unknown Organization [facility] Address [address] [place] [address] Phone [phone] Care Team Providers Care Support Service Tech Name Role Phone Gilbert Calloway MD Primary Care Provide r Reason for Visit * Reason Onset Date Comments Home Health 12/12/2023 Fax 12/26/2023 Since 11/2023 Encounter Details Date Type Department Care Team (Late st Contact Info) Description 12/12/2023 Telephone Family Medicine [address] [place] [phone] Gilbert Calloway MD [address] [place] [address] [place], [place] [phone] [facility]; Fax (Since 11/2023) Allergies Active Allergy Reactions Criticality Noted Date Comments Ergotamine 03/01/2000 vomit Nitroglycerin 03/14/2007 vomitting documented as of this encounter (statuses as of 01/03/2024) Medications Acetaminophen 500 MG Oral Tablet (Tylenol)Indicatio [...] as of this encounter (statuses as of 01/03/2024) Active Problems Problem Noted Date Diagnosed Date [...] daily. Suspect she is gaining real wt. [facility] nursing continue to monitor. Spondylosis [...] discuss her pain concerns. She is aware [facility] does not manage chronic pain meds. With her history of confusion, would recommend against use of narcotic medication. Mild aortic stenosis 07/27/2021 Assessment & Plan (08/03/2022 11:39 AM EDT): Following with cardiology Aortocoronary bypass status 03/09/2021 Chronic atrial fibrillation 03/01/2021 Overview (03/09/2021): [facility], [facility] on apixaban Assessment & Plan (12/15/2022 1:03 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[place] co ronary artery of [place] heart without angina pectoris Assessment & Plan [...] as of this encounter (statuses as of 01/03/2024) Resolved Problems Problem Noted Date Diagnosed Date [...] plan visit tomorrow to recheck Acquired hypothyroidism 01/19/2016 11/3 Gastric ulcer 06/30/2014 06/26/2017 Overview (07/15/2014): hgb 7.4 admitted [facility] CKD [...] as of this encounter (statuses as of 01/03/2024) Immunizations Name Administration Dates Next Due COVID-19 [...] No 12/26/2023 Does the household have a [facility] source of income? (Household - for ages [...] Telephone Encounter - Rula Cosby CMA - 01/03/2024 10:09 AM EST They have all been faxed last week. I will fax them again today. * Telephone Encounter - Nita Rodriguez LPN - 01/01/2024 3:10 PM EST I will check with Rula when she returns tomorrow, it might have already been faxed back. * Telephone Encounter - Anamaria Whelan, TAM - 12/26/2023 1:40 PM EST Received a call asking if fax was received by office. Name/Company sending fax: Shelby from [facility] What fax is pertaining to: Plan of Care; Hospital Hold Date(s) they sent request: 12/04/2023 ; 12/12/2023 ; 12/14/2023 Verified fax number they are sending to is correct (Y or N): Yes, gave her other fax number Callback Number for the clinic to call to verified if fax was received: [phone]; (called ID number is [phone]) Shelby will be re-faxing those orders for the patient. Thank you. TAM Araya * Telephone Encounter - Mee Tee LPN - 12/12/2023 12:26 PM EDT Shelby calling from [facility] asking about status of plan of care for patient sent over on 12/04/23 that has not been received at this time with PCP signature. Please sign and fax to [facility] If not received please contact Shelby at [phone] * Telephone Encounter - Shaila Gross OSA - 12/12/2023 12:22 PM EDT Requesting information about the patient's plan of care. Transferred to [facility] documented in this encounter Plan of Treatment Upcoming Encounters Date Type Department Care Team (Late st Contact Info) Description 01/03/2024 2:00 PM EST [facility] Visit [facility] 132 [facility] [place] [address] Lana Lieberman, RN [address] [place] [address] 01/14/2024 1:00 PM EST Home Visit [facility], [facility] [address] [place] [address] Anthony Ivy PA-C [address] [place] [address] 02/25/2024 11:40 AM EST Office Visit Family [address] [phone] Daren Varela CRNP [address] [place] [address] [place] [address] 04/04/2024 2:40 PM EST Office Visit Nephrology, [facility] [address] [facility] [place] [address] Tirso Shah MD [address] [place] [address] 06/30/2024 10:00 AM EDT Office Visit Family [address] [phone] Gilbert Calloway MD [address] [place] [address] [place] [address] Health Maintenance Due Date Last Done Comments DTap/Tdap Vaccines (1 - Tdap) 11/15/1957 Adult Wellness Visit 2002 Albumin/Creatinine Ratio 07/28/2023 023, 06/09/2020, 03/13/2019, Additional history exists COVID-19 Vaccine (2023- season) 2023 01/04/2021, 04/19/2020, 04/04/2020, Additional history exists TSH 12/05/2024 12/06/2023, 10/21, 07/27/2022, Additional history exists CKD HGB USE SMARTSET 62737 12/20/202412/20, 12/06/2023, 11/16/2023, Additional history exists CKD PHOS USE SMARTSET 09826 12/20/202402/2023, 11/16/2023, 10/04/2022, Additional history exists Depression [...] filedocumented as of this encounter Care Teams Support Service Tech Relationship Specialty Start Date End Date Gilbert Calloway MD [address] [place] [address] [place] [phone] PCP - General Family Medicine 07/30/23 documented as of this encounter
--- OUTSIDE RECORDS SUMMARY | 2024-03-16 09:41 | External Medical Summary | Summary of Care ---
Author Name Unknown Organization [facility] Address [address] [place] [place] [address] Phone [phone] Care Team Providers Care Plug Overwrap Machine Tender Name Role Phone Gilbert Calloway MD Primary Care Provide r Reason for Visit * Reason Onset Date Comments Home Health 12/31/2023 Encounter Details Date Type Department Care Team (Late st Contact Info) Description 12/31/2023 Telephone Family Medicine [address] [place] [phone] Gilbert Calloway MD [address] [place] [address] [place] [address] Home Health Allergies Active [...] 03/09/2021 Chronic atrial fibrillation 03/01/2021 Overview (03/09/2021): [facility], [facility] on apixaban Assessment & Plan (12/15/2022 1:03 [...] of [place] heart without angina pectoris Assessment & Plan [...] 06/30/2014 06/26/2017 Overview (07/15/2014): hgb 7.4 admitted [facility] [...] encounter Miscellaneous Notes * Telephone Encounter - Kanwal Lucas LPN - 12/31/2023 10:55 AM EST Ericka calling from [facility]. Recheck of bp is 140/70 Oxygen 98% room air HR 70 Lungs clear Will be taking her medications. Will keep the appointment tomorrow. * Telephone Encounter - Jasmine Trinidad LPN - 12/31/2023 10:19 AM EST HH Concerns FARIDEH Barnett, Calling from: [facility] Report/Concerns of: BP elevation and SOB Symptoms: [...] Barnett with any advice or orders at [phone] Please fax new orders to [facility] [phone] documented in this encounter Plan of Treatment Upcoming Encounters Date Type Department Care Team (Late st Contact Info) Description 01/01/2024 10:00 AM EST Office Visit Family Medicine [address] [place] [phone] Gilbert Calloway MD [address] [place] [address] [place] [address] 01/02/2024 11:00 AM EST Nurse Only Ancillary [address] [place] [address] Nurse [place] [address] [place] [address] 01/03/2024 2:00 PM EST Home Visit [facility] [address] [place] [phone] Lana Lieberman, KHARI [address] [place] [address] 01/14/2024 1:00 PM EST [facility] [address] [place] [address] Anthony Ivy PA-C [address] [place] [address] 02/25/2024 11:40 AM EST Office Visit [address] [phone] Daren Varela CRNP [address] [place] [address] [place] [address] 04/04/2024 2:40 PM EST Office Visit Nephrology, [facility] 200 [facility] [place] [address] Tirso Shah MD 200 [facility] [place] [address] 06/30/2024 10:00 AM EDT Office Visit [address] [phone] Gilbert Calloway MD [address] [place] [address] [place] [address] Health Maintenance Due Date Last Done Comments DTap/Tdap Vaccines (1 - Tdap) 11/15/1957 Adult Wellness Visit 2002 Albumin/Creatinine Ratio 07/28/2023 023, 06/09/2020, 03/13/2019, Additional history exists COVID-19 Vaccine (2023- season) 2023 01/04/2021, 04/19/2020, 04/04/2020, Additional history exists TSH 12/05/2024 12/06/2023, 10/21, 07/27/2022, Additional history exists CKD HGB USE SMARTSET 84618 12/20/202412/20, 12/06/2023, 11/16/2023, Additional history exists CKD PHOS USE SMARTSET 69836 12/20/202402/2023, 11/16/2023, 10/04/2022, Additional history exists Depression [...] filedocumented as of this encounter Care Teams Plug Overwrap Machine Tender Relationship Specialty Start Date End Date Gilbert Calloway MD [address] [place] [address] [place] [phone] PCP - General Family Medicine 07/30/23 documented as of this encounter
--- OUTSIDE RECORDS SUMMARY | 2024-03-16 09:41 | External Medical Summary | Summary of Care ---
Author Name Unknown Organization [facility] Address [address] [facility] [place] [address] Phone [phone] Care Team Providers Care Automotive Worker Name Role Phone Gilbert Calloway MD Primary Care Provide r Reason for Visit * Reason Onset Date Comments Hospital Follow-Up Medication Administration 12/24/2023 Flu an d/or Pneumo Inj Hospital Follow-Up 12/24/2023 Encounter Details Date Type Department Care Team (Late st Contact Info) Description 12/24/2023 11:20 AM EST Office Visit Family Medicine [address] [place] [phone] Gilbert Calloway MD [address] [place] [address] [place] [address] HTN, goal below 140/90*; Need for prophylactic vaccination and inoculation against influenza; Hospital discharge follow-up; Screening for depression; Acquired hypothyroidism; Anemia in stage 3b chronic kidney disease (HCC) Allergies Active Allergy Reactions Criticality Noted Date Comments Ergotamine 03/01/2000 vomit Nitroglycerin 03/14/2007 vomitting documented as of this encounter (statuses as of 12/24/2023) Medications Medication Sig Dispensed Refills Start Date [...] In the morning.. 30 Tablet 12/14/2023 Active Levothyroxine Sodium 75 MCG Oral Tablet (Levoxyl) Take 1 Tablet by mouth daily first thing in the morning. (at least 30 min prior to breakfast or other meds) 12/24/2023 Active Benzonatate 100 MG Oral Capsule (Tessalon Perlallen)Indications:V iral URI with cough Take 1 Capsule by mouth 3 times a day as needed for Cough. 30 Capsule 1 11/22/2023 4 Discontinue d(Medicatio n List Clean Up) Levothyroxine Sodium 100 MCG Oral Tablet (Levoxyl) Take 1 Tablet by mouth daily first thing in the morning. (at least 30 min prior to breakfast or other meds) 90 Tablet 11/22/2023 4 Discontinue d(Refill) Irbesartan 75 MG Oral Tablet (Avapro)Indications: Chronic heart failure with preserved ejection fraction (HCC),Hypertensive heart and kidney disease with chronic diastolic congestive heart failure and stage 3b chronic kidney disease (HCC),Primary hypertension One daily 30 Tablet 5 12/06/2023 4 Discontinue d(Medicatio n List Clean Up) documented as of this encounter (statuses as of 12/24/2023) Active Problems Problem Noted Date Diagnosed Date 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[place] ronary artery of [place] heart without angina pectoris Last Assessment & Plan: Stable no angina -continue rosuvastatin, metopropolol, Primary hypertension Gastroesophageal reflux dise ase with esophagitis without hemorrhage Last Assessment & Plan: symptoms controlled on pantoprazole Scoliosis of lumbar spine Mixed incontinence urge and stress (male)(female ) documented as of this encounter (statuses as of 12/24/2023) Resolved Problems Problem Noted Date Diagnosed Date [...] as of this encounter (statuses as of 12/24/2023) Immunizations Name Administration Dates Next Due COVID-19 [...] Sign Reading Time Taken Comments Blood Pressure 102/60 12/24/2023 11:22 AM EST Pulse 77 12/24/2023 11:22 AM EST Temperature 36.4 C (97.5 F) 12/24/2023 1 1:22 AM EST Respiratory Rate - - Oxygen Saturation 97% 12/24/2023 11: 22 AM EST Inhaled Oxygen Concentration - - Weight 72.5 kg (159 lb 12.8 oz) 024 11:22 AM EST Height - - Body Mass Index 30.19 04/11/2023 11:01 AM EST documented in this encounter Progress Notes * Gilbert Calloway MD - 12/24/2023 11:31 AM EST Subjective: HPI: Zoya Howard is a 85 year old female with hx of Afib on eliquis, HFpEF, CAD s/p CABG, Mild , HLD, hypothyroidism, GERD, HTN, CKD III, DDD, Migraine, anxiety, depression, insomnia, urinary incontinence seen for Pt was admitted to the hospital from 12/12-12/20 Acute metabolic encephalopathy -CT head, UA, CXR were unremarkable - per discharge summary pt forgot to take her meds - COVID/RSV/FLU: neg - Echo: mild aortic stenosis, EF of >70% 2. KIM: - Cr was 1.5 --- improved to 1.17 3. Low TSH: - pt's levothyroxine was decreased to 75 mcg daily Today: - per pt she is doing well - denied any fever - trying to drink water - denied any dizziness - have not started levothyroxine 75 mcg daily --- going to machine operator hop picker the med today - denied any confusion - has been compliant with meds Patient Active Problem List Diagnosis Hip joint replacement status GENERAL OSTEOARTHROSIS Atherosclerosis of [place] coronary artery of [place] heart without angina pectoris ADVANCE DIRECTIVE INFORMATION [...] episode, in partial remission (HCC) Anxiety state Full code status Cognitive deficits Current Outpatient Medications Medication Sig Dispense Refill [...] tablet by mouth every Sunday, Sunday and [id number] Capsule 1 Loperamide HCl 2 MG Oral [...] daily Strength: 300 mg. 90 Capsule 5 Rosuvastatin Calcium 10 MG Oral Tablet (Crestor) Take 1 Tablet by mouth at bedtime. 90 Tablet 2 traZODone HCl 150 MG Oral Tablet (Desyrel) Take 1 Tablet by mouth at bedtime. 90 Tablet 1 Metoprolol Succinate ER 25 MG Oral Tablet Extended Release 24 Hour (toPROL XL) Take 1.5 Tablets by mouth in the morning. In the morning.. 30 Tablet 0 Levothyroxine Sodium 75 MCG Oral Tablet (Levoxyl) Take 1 Tablet by mouth daily first thing in the morning. (at least 30 min prior to breakfast or other meds) No current facility-administered medications for this visit. Past Medical History: Diagnosis Date (HFpEF) heart failure with preserved ejection fraction ([facility]) 12/07/2022 Acute on chronic combined systolic and diastolic CHF (congestive heart failure) ([facility]) 03/28/2021 admitted [facility] Anxiety state Anxiety State Aortic valve stenosis, mild 03/01/2021 Aortocoronary bypass status Atherosclerosis of [place] coronary artery of [place] heart without angina pectoris Atrial fibrillation ([facility]) 12/09/2020 during admission [facility] Benign hypertension with CKD (chronic kidney disease) stage III ([facility]) Cataract cortical, senile Chronic atrial fibrillation ([facility]) 03/01/2021 new onset, [facility] on apixaban CKD (chronic kidney disease) stage 3, GFR 30-59 ml/min ([facility]) 07/03/2013 GFR 36.9 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 11/01/2020 Coronary atherosclerosis CAD Cystitis 09/16/2018 >100,000 enterococcus pansensitive Cystitis 08/03/2020 10-100,000 E coli pansensitive Depressive disorder, not elsewhere classified Depression Gastric ulcer 06/30/2014 hgb 7.4 admitted [facility] Herpes zoster without complication 11/18/2020 right hip Hiatal hernia 12/07/2022 moderate Hypercalcemia 12/07/2022 Ca 11.6 Hypertension goal BP (blood pressure) < 140/90 Macular hole of left eye Major depression, single episode MEDICATION USE AGREEMENT 03/19/2012 Tylenol with codeine--Reena Meningioma, cerebral ([facility]) 07/16/2022 small frontal cortex meningioma without mass effect Meningioma, cerebral ([facility]) 08/02/2022 Adding D32.0-Meningioma, cerebral (HCC) Dx to History Migraines history of migraines--stopped 1998 Mixed incontinence urge and stress (male)(female) Moderate mitral regurgitation 03/01/[address] Ndiaye Other and unspecified noninfectious gastroenteritis and colitis(558.9) 06/24/2013 admitted [facility] Other forms of retinal detachment(361.89) Pneumonia 01/29/2023 admitted [facility] with pneumonia, sepsis, CHF Pneumonia due to COVID-19 virus 12/09/2020 [place], transferred to [facility] Postoperative anemia due to acute blood loss 03/11/2018 hgb 7, given 2 units PRBC hgb 9 on discharge Reflux esophagitis Scoliosis of lumbar spine Syncope and collapse 03/11/2018 hit head, admitted to [facility] Trochanteric bursitis of right hip 10/24/2020 Past Surgical History: Procedure Laterality Date ABDOMEN SURGERY PROCEDURE NEC liposuction CABG, ARTERIAL, TWO 02/[address] HEAD/BRAIN W/O CONTRAST MATERIAL 07/16/2022 chronic cerebellar infarct COLONOSCOPY, DIAGNOSTIC (RECTUM) 08/01/2016 normal /[facility] COLORECTAL CANCER SCREEN;W/FLE 08/2000 CT ABD/PELVIS W IV AND W ORAL CONTRAST N/A 10/05/2020 bilateral hip replacements, DJD of back, otherwise unremarkable. 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 NAD, well developed HEENT:. Normal Conjunctiva, EOMI Cardiac:.systolic murmur (R sternal border) Lungs:. CTA, no wheezing or crackles MSK:. No LE edema Psych:. AAOx3, normal affect ASSESSMENT/PLAN: BP is at low normal range - stopped irbesartan - nurse visit in 1week - BMP in 1 week HTN, goal below 140/90 (Primary) - BASIC METABOLIC PANEL - DISCH MED RECON CUR MED LIS - ALBUMIN / CREATININE RATIO, URINE Need for prophylactic vaccination and inoculation against influenza - INFLUENZA VAC., TRIVALENT, HD, PF, 65 AND ABOVE, 0.5 ML IM (FLUZONE HD) Hospital discharge follow-up - DISCH MED RECON CUR MED LIS Screening for depression - DEPRESSION SCREENING PERFORMED Acquired hypothyroidism - advised the pt to start levothyroxine 75 mcg daily - TSH in 2 months Anemia in stage 3b chronic kidney disease (HCC) Follow-up: Return in about 2 months (around 02/23/2024). | Check-out note: Nurse visit in 1 week for BP check Gilbert Calloway MD Family medicine, [address] [address] * Rula Cosby CMA - 12/24/2023 11:25 AM EST PRE - ADMINISTRATION DOCUMENTATION Are you experiencing any cold symptoms or fever? No Have you had Guillain-[place] Syndrome (an illness that causes paralysis) within the last 6 weeks? No Have you had the flu shot in the past? YES Have you ever had a reaction to the flu shot? No Rula Cosby CMA, 12/24/2023 11:25 AM Immunization Administration Documentation Time Out Procedure Performed: Yes Patient Identified (Ask Name/Date of ): Yes Does the patient have a fever greater than 101 degrees today? No Patient allergic to latex? No VFC Stock: No Immunization(s) verified: Yes, Immunization Name: Flu, VIS Sheet(s) given: Yes Verified Side and Site: Yes Verified Shot(s) with Parent(s)/Patient: Yes documented in this encounter Nursing Notes * Rula Cosby CMA - 12/24/2023 11:17 AM EST She was admitted to [facility] 12/13-12/17. Her blood pressure was elevated so they kept her. She would like some tylenol #3 for pain. She also needs an order for more time with a caregiver from the waiver program. documented in this encounter Plan of Treatment Upcoming Encounters Date Type Department Care Team (Late st Contact Info) Description 12/26/2023 4:00 PM EST Home Visit [facility], [address] [place] [phone] Lana Lieberman, KHARI [address] [place] [address] 01/02/2024 11:00 AM EST Nurse Only Ancillary [address] [place] [address] [place], Nurse [address] [place] [address] 01/14/2024 1:00 PM EST [facility] Visit [facility], [facility] [address] [place] [address] Anthony Ivy PA-C [address] [place] [address] 02/25/2024 11:40 AM EST Office Visit Family [address] [place] [phone] Daren Varela CRNP [address] [place] [address] [place] [address] 04/04/2024 2:40 PM EST Office Visit Nephrology, [facility] [address] [facility] [place] [address] Tirso Shah MD [address] [place] [address] 06/30/2024 10:00 AM EDT Office Visit Family [address] [place] [phone] Gilbert Calloway MD [address] [place] [address] [place] [address] Scheduled Orders Name Type Priority Associated Diagnoses Orde r Schedule BASIC METABOLIC PANEL Lab Routine HTN, goal below 140/90 Ordered: 12/24/2023 ALBUMIN / CREATININE RATIO, URINE Lab Routine HTN, goal below 140/90 Ordered: 12/24/2023 Health Maintenance Due Date Last Done Comments DTap/Tdap Vaccines (1 - Tdap) 11/15/1957 Adult Wellness Visit 2002 Albumin/Creatinine Ratio 07/28/2023 023, 06/09/2020, 03/13/2019, Additional history exists COVID-19 Vaccine ( season) 2023 01/04/2021, 04/19/2020, 04/04/2020, Additional history exists CKD PHOS USE SMARTSET 91252 11/15/202410/21, 10/04/2022, 06/08/2021, Additional history exists CKD HGB USE SMARTSET 33686 12/05/202412/05, 11/16/2023, 11/16/2023, Additional history exists TSH [...] as of this encounter Visit Diagnoses Diagnosis HTN, goal below 140/90- Primary Unspecified essential hypertension Need for prophylactic vaccination and inoculation against influenza Hospital discharge follow-up Other follow-up examination Screening for depression Acquired hypothyroidism Unspecified hypothyroidism Anemia in stage 3b chronic kidney disease (HCC) documented in this encounter Care Teams Automotive Worker Relationship Specialty Start Date End Date Gilbert Calloway MD [address] [place] [address] [place] [address] PCP - General Family Medicine 07/30/23 documented as of this encounter
--- OUTSIDE RECORDS SUMMARY | 2024-03-16 09:41 | External Medical Summary | Summary of Care ---
Author Name Unknown Organization [facility] Address [address] [place] [place] [place] [address] Phone [phone] Care Team Providers Care Entry Level Java Developer Name Role Phone Gilbert Calloway MD Primary Care Provide r Encounter Details Date Type Department Care Team (Late st Contact Info) Description 12/25/2023 Orders Only Family Medicine [address] [place] [phone] Gilbert Calloway MD [address] [place] [address] [place] [address] Allergies Active Allergy Reactions Criticality Noted Date [...] to breakfast or other meds) 12/24/2023 Active documented as of this encounter (statuses [...] discuss her pain concerns. She is aware [facility] does not manage chronic pain [...] 12/26/2023 4:00 PM EST Home Visit [facility] [address] [place] [address] Lana Lieberman RN [address] [place] [address] 01/02/2024 11:00 AM EST Nurse Only Ancillary [address] [place] [address] [place], Nurse [address] [place] [address] 01/14/2024 1:00 PM EST Home Visit [facility] [address] [place] [address] Anthony Ivy PA-C [address] [place] [address] 02/25/2024 11:40 AM EST Office Visit Family Medicine [address] [place] [phone] Daren Varela CRNP [address] [place] [address] [place] [address] 04/04/2024 2:40 PM EST Office Visit Nephrology, [facility] [address] [facility] [place] [address] Tirso Shah MD [address] [facility] [place] [address] 06/30/2024 10:00 AM EDT Office Visit Family Medicine [address] [phone] Gilbert Calloway MD [address] [place] [address] [place] [address] Health Maintenance Due Date Last Done Comments DTap/Tdap Vaccines (1 - Tdap) 11/15/1957 Adult Wellness Visit 2002 Albumin/Creatinine Ratio 07/28/2023 023, 06/09/2020, 03/13/2019, Additional history exists COVID-19 Vaccine ( season) 2023 01/04/2021, 04/19/2020, 04/04/2020, Additional history exists CKD PHOS USE SMARTSET 21008 11/15/2024 110 02/2023, 11/16/2023, 10/04/2022, Additional history exists CKD HGB USE SMARTSET 07222 12/05/202412/20, 12/06/2023, 11/16/2023, Additional history exists TSH [...] Procedure Name Priority Date/Time Associated Diagnosis Comments CHEMISTRY-OUTSIDE Routine 12/21/2023 documented in this encounter Results * (ABNORMAL) CHEMISTRY-OUTSIDE (12/21/2023) Not all results display below - see scan for full detail OUTSIDE LAB (SEE SCANNED REPORT) Comment:SCAN INCL: INPT LABS : CBC,BMP, PHOS, MG CREATININE 1.17 0.6 - 1.2 MG/DL OUTSIDE LAB (SEE SCANNED REPORT) EGFR 45.16 OUTSIDE LA B (SEE SCANNED REPORT) POTASSIUM 4.2 3.5 - 5.1 MMOL/L OUTSIDE LAB (SEE SCANNED REPORT) GLUCOSE 87 70 - 99 MG/DL OUTSIDE LAB (SEE SCANNED REPORT) HOURS FASTING OUTSID E LAB (SEE SCANNED REPORT) TRIGLYCERIDES-OUT SIDE LAB OUTSIDE LAB (SEE SCANNED REPORT) CHOLESTEROL-OUTSI DE LAB OUTSIDE LAB (SEE SCANNED REPORT) HDL-OUTSIDE LAB OUTS EUGENIA LAB (SEE SCANNED REPORT) CHOL/HDL RATIO-OUTSIDE LAB OUTSIDE LA B (SEE SCANNED REPORT) LDL (CALCULATED)-OUTS EUGENIA LAB OUTSIDE LAB (SEE SCANNED REPORT) LDL (DIRECT MEASURE)-OUTSIDE LAB OUTSIDE LAB (SEE SCANNED REPORT) HEMOGLOBIN, [id number] LAB OUTSIDE LAB (SEE SCANNED REPORT) PHOSPHORUS-OUTSID E LAB 3.2 2.5 - 4.9 MG/DL OUTSIDE LAB (SEE SCANNED REPORT) PTH-OUTSIDE LAB OUTS EUGENIA LAB (SEE SCANNED REPORT) MICROALBUMIN RATIO-OUTSIDE LAB OUTSIDE LA B (SEE SCANNED REPORT) PROTEIN, UA-OUTSIDE LAB OUTSIDE LAB (SEE SCANNED REPORT) HGB 9.8(A) 12.0 - 16.0 G/DL OUTSIDE LAB (SEE SCANNED REPORT) 12/21/2023 History Per Patient LABORATORY OUTSIDE LAB (SEE SCANNED REPORT) documented in this encounter Care Teams Entry Level Java Developer Relationship Specialty Start Date End Date Gilbert Calloway MD [address] [place] [address] [place] [phone] PCP - General Family Medicine 07/30/23 documented as of this encounter
--- OUTSIDE RECORDS SUMMARY | 2024-03-16 09:41 | External Medical Summary | Summary of Care ---
Author Name Unknown Organization [facility] Address [address] [place] [address] Phone [phone] Care Team Providers Care Supply Chain Program Manager Name Role Phone Gilbert Carroll MD Primary Care Provide r Reason for Visit * Reason Onset Date Comments Medication Refill 12/26/2023 Encounter Details Date Type Department Care Team (Late st Contact Info) Description 12/26/2023 Refill Family Medicine [address] [place] [phone] Gilbert Carroll MD [address] [place] [address] [place] [address] Allergies Active Allergy Reactions Criticality Noted Date Comments Ergotamine 03/01/2000 vomit Nitroglycerin 03/14/2007 vomitting documented as of this encounter (statuses as of 12/27/2023) Medications Medication Sig Dispensed Refills Start Date [...] at bedtime. 90 Tablet 1 11/22/2023 Active Levothyroxine Sodium 75 MCG Oral Tablet (Levoxyl) Take 1 Tablet by mouth daily first thing in the morning. (at least 30 min prior to breakfast or other meds) 12/24/2023 Active Metoprolol Succinate ER 25 MG Oral Tablet Extended Release 24 Hour (toPROL XL) Take 1.5 Tablets by mouth in the morning. 45 Tablet 3 12/27/2023 Active Metoprolol Succinate ER 25 MG Oral Tablet Extended Release 24 Hour (toPROL XL) Take 1.5 Tablets by mouth in the morning. In the morning.. 30 Tablet 12/14/2023 Discontinue d(Refill) documented as of this encounter (statuses as of 12/27/2023) Active Problems Problem Noted Date Diagnosed Date [...] joint replacement status 09/09/2002 Atherosclerosis of [place] co ronary artery of [place] heart without angina pectoris Last Assessment & Plan: Stable no angina -continue rosuvastatin, metopropolol, Primary hypertension Gastroesophageal reflux dise ase with esophagitis without hemorrhage Last Assessment & Plan: symptoms controlled on pantoprazole Scoliosis of lumbar spine Mixed incontinence urge and stress (male)(female ) documented as of this encounter (statuses as of 12/27/2023) Resolved Problems Problem Noted Date Diagnosed Date [...] as of this encounter (statuses as of 12/27/2023) Immunizations Name Administration Dates Next Due COVID-19 [...] ages 0-17 years) Not on file 12/26/2023 Sex and Gender Information Value Date Recorded Sex Assigned at Female 12/11/2022 6:31 PM EDT Gender Identity Female 12/11/2022 6:31 PM EDT Sexual Orientation Straight 05/16/2023 10 :36 AM EDT Job Start Date Occupation Industry Not on file Not on file Not on file documented as of this encounter Miscellaneous Notes * Telephone Encounter - Gilbert Carroll MD - 12/27/2023 1:49 PM EST Signed Prescriptions: Disp Refills Metoprolol Succinate ER 25 MG Oral Tablet *45 Tab*3 Sig: Take 1.5 Tablets by mouth in the morning. Authorizing Provider: GILBERT CARROLL * Telephone Encounter - Radha Hawkins [facility] - 12/27/2023 1:48 PM EST Pending Prescriptions: Disp Refills Metoprolol Succinate ER 25 MG Oral Tablet *45 Tab* Sig: Take 1.5 Tablets by mouth in the morning. * Telephone Encounter - Radha Hawkins [facility] - 12/27/2023 1:48 PM EST Please provide refills if appropriate. Thank you, Radha Hawkins, PharmD Clinical Pharmacist [facility] ([facility]) 12/27/23 1:48 PM [phone] * Telephone Encounter - Jewell Clemens [facility] - 12/26/2023 9:41 AM EST Pharmacy is requesting a 30-day supply, pre-edited RXs as such. Please review and approve if appropriate. Pending Prescriptions: Disp Refills Metoprolol Succinate ER 25 MG Oral Tablet*45 Tab*0 Sig: Take 1.5 Tablets by mouth in the morning. In the morning.. Last Visit: 12/24/2023 (in office), 01/10/2023 (telemedicine) 02/25/2024 If no future appointments scheduled, and last appointment is greater than a year ago, please schedule patient for an appointment Last date the medication was ordered: [id number] Patient Phone Numbers Labs: Lab Results Component [...] Care Team (Late st Contact Info) Description 01/02/2024 11:00 AM EST Nurse Only Ancillary [address] [place] [address] [place], Nurse [address] [place] [address] 01/03/2024 2:00 PM EST [facility] Visit [facility] [address] [facility] [place] [address] Lana Lieberman, KHARI [facility] [place] [address] 01/14/2024 1:00 PM EST Home Visit [facility] [address] [place] [address] Anthony Ivy PA-C [address] [facility] [place] [address] 02/25/2024 11:40 AM EST Office Visit Family Medicine [address] [place] [phone] Daren Varela CRNP [address] [place] [address] [place] [address] 04/04/2024 2:40 PM EST Office Visit Nephrology, [facility] Sparks [address] [place] [address] [place] [address] Tirso Shah MD [address] [place] [address] 06/30/2024 10:00 AM EDT Office Visit Family Medicine [address] [place] [phone] Gilbert Carroll MD [address] [place] [address] [place] [address] Health Maintenance Due Date Last Done Comments DTap/Tdap Vaccines (1 - Tdap) 11/15/1957 Adult Wellness Visit 2002 Albumin/Creatinine Ratio 07/28/2023 023, 06/09/2020, 03/13/2019, Additional history exists COVID-19 Vaccine ( season) 2023 01/04/2021, 04/19/2020, 04/04/2020, Additional history exists TSH 12/05/2024 12/06/2023, 10/21, 07/27/2022, Additional history exists CKD HGB USE SMARTSET 70766 12/20/202412/20, 12/06/2023, 11/16/2023, Additional history exists CKD PHOS USE SMARTSET 92100 12/20/202402/2023, 11/16/2023, 10/04/2022, Additional history exists Depression [...] filedocumented as of this encounter Care Teams Supply Chain Program Manager Relationship Specialty Start Date End Date Gilbert Carroll MD [address] [place] [address] [place] [phone] PCP - General Family Medicine 07/30/23 documented as of this encounter
--- OUTSIDE RECORDS SUMMARY | 2024-03-16 09:41 | External Medical Summary | Summary of Care ---
Author Name Unknown Organization [facility] Address [address] [place] [address] Phone [phone] Care Team Providers Care Pusher Runner Name Role Phone Gilbert Calloway MD Primary Care Provide r Reason for Visit * Reason Onset Date Comments No Show 01/08/2024 [facility] No Show Auto mation Encounter Details Date Type Department Care Team (Late st Contact Info) Description 01/08/[address] [place] [phone] Gilbert Calloway MD [address] [place] [address] [place] [address] No Show ([facility] No Show Automation) Allergies Active Allergy Reactions Criticality Noted Date Comments Ergotamine 03/01/2000 vomit Nitroglycerin 03/14/2007 vomitting documented as of this encounter (statuses as of 01/08/2024) Medications Acetaminophen 500 MG Oral Tablet (Tylenol)Indicatio [...] as of this encounter (statuses as of 01/08/2024) Active Problems Problem Noted Date Diagnosed Date [...] daily. Suspect she is gaining real wt. [facility] nursing continue to monitor. Spondylosis of [...] atrial fibrillation 03/01/2021 Overview (03/09/2021): new onset, [facility] on apixaban Assessment & Plan (12/15/2022 [...] as of this encounter (statuses as of 01/08/2024) Resolved Problems Problem Noted Date Diagnosed Date [...] 06/30/2014 06/26/2017 Overview (07/15/2014): hgb 7.4 admitted [facility] CKD [...] as of this encounter (statuses as of 01/08/2024) Immunizations Name Administration Dates Next Due COVID-19 [...] Telephone Encounter - Mary, No Show - 01/08/2024 2:58 PM EST Dear Zoya Howard, Looks like you missed an appointment with GILBERT CALLOWAY on 01/01/2024 at 10:00 AM. If you haven't already rescheduled, you have a couple of options: Reschedule in [place] [email or web address] Call us at [phone] Can't make a future appointment? Cancel and let someone else have your spot! It's easy to do via [employer] or by calling us. Thanks for trusting [facility] with your care. We hope to see you back in our office soon. Sincerely, GILBERT CALLOWAY documented in this encounter Plan of Treatment Upcoming Encounters Date Type Department Care Team (Late st Contact Info) Description 01/14/2024 1:00 PM EST [facility] Visit [facility] [place] [address] [place] Ivy PA-C [address] [place] [address] 02/25/2024 11:40 AM EST Office Visit Family [address] [phone] Daren Varela CRNP [address] [place] [address] [place] [address] 04/04/2024 2:40 PM EST Office Visit Nephrology, Caroline Sparks [facility] [place] [address] Tirso Shah MD [address] [facility] [place] [address] 06/30/2024 10:00 AM EDT Office Visit Family [address] [place] [phone] Gilbert Calloway MD [address] [place] [address] [place] [address] Health Maintenance Due Date Last Done Comments DTap/Tdap Vaccines (1 - Tdap) 11/15/1957 Adult Wellness Visit 2002 Albumin/Creatinine Ratio 07/28/2023 023, 06/09/2020, 03/13/2019, Additional history exists COVID-19 Vaccine ( season) 2023 01/04/2021, 04/19/2020, 04/04/2020, Additional history exists TSH 12/05/2024 12/06/2023, 10/21, 07/27/2022, Additional history exists CKD HGB USE SMARTSET 57258 12/20/202412/20, 12/06/2023, 11/16/2023, Additional history exists CKD PHOS USE SMARTSET 91843 12/20/2024 1102/2023, 11/16/2023, 10/04/2022, Additional history exists [...] filedocumented as of this encounter Care Teams Pusher Runner Relationship Specialty Start Date End Date Gilbert Calloway MD [address] [place] [address] [place] [address] PCP - General Family Medicine 07/30/23 documented as of this encounter
--- OUTSIDE RECORDS SUMMARY | 2024-03-16 09:41 | External Medical Summary | Summary of Care ---
Author Name Unknown Organization [facility] Address [address] [facility] [place] [address] Phone [phone] Care Team Providers Care Jump Roll Operator Name Role Phone Gilbert Calloway MD Primary Care Provide r Encounter Details Date Type Department Care Team (Late st Contact Info) Description 12/26/2023 4:00 PM EST Home Visit [facility], [facility] [place] [address] Lana Lieberman, KHARI [address] [place] [address] Allergies Active Allergy Reactions Criticality Noted Date [...] bedtime. 60 Tablet 5 11/22/19 24 Active Gabapentin 300 MG Oral Capsule (Neurontin)Indicat ions:DDD (degenerative disc disease), lumbar Take 1 Capsule by mouth in the morning and 1 Capsule at noon and 1 Capsule before bedtime. take 1 capsule three times daily Strength: 300 mg. 90 Capsule 5 11/22/19 24 Active Rosuvastatin Calcium 10 [...] the morning. In the morning.. 30 Tablet 12/14/19 24 024 Discontin ued(Refil l) documented as [...] Chronic atrial fibrillation 03/01/2021 Overview (03/09/2021): new nicolas, [facility] on apixaban Assessment & Plan (12/15/2022 [...] artery of [place] heart without angina pectoris Assessment & Plan [...] plan visit tomorrow to recheck Acquired hypothyroidism 01/19/20163 Gastric ulcer 06/30/2014 06/26/2017 Overview (07/15/2014): hgb 7.4 admitted [facility] CKD (chronic kidney disease) stage 3, [...] the money to buy more. Never true 11/06/20 24 Within the past 12 months, t [...] Sign Reading Time Taken Comments Blood Pressure 108/60 12/26/2023 2:57 PM EST Pulse 72 12/26/2023 2:57 PM EST Temperature 37.2 C (98.9 F) 12/26/2023 2:57 PM ES T Respiratory Rate 18 12/26/2023 2:57 PM EST Oxygen Saturation 95% 12/26/2023 2:57 PM EST Inhaled Oxygen Concentration - - Weight - - Height - - Body Mass Index - - documented in this encounter Progress Notes * Lana Lieberman RN - 12/26/2023 2:39 PM EST Current Concerns: Patient seen for follow up- Recent utilization- [facility]- discharged home 12/20 Diagnosis- confusion- patient stopped taking medications for several days prior to hospitalization. Patient known to abruptly stop medications several times- Does have pill packs with dates. Very forgetful. PCP appointment 12/23- did report to PCP that she was taking medications with exception of thyroid medication- was to waste picker same day. No medications in home- has not had any since discharge on 12/21/23- call to [facility] pharmacy- they will deliver one weeks worth this afternoon. VS wnl- BP slightly elevated Lungs clear but diminished No sob noted Voiding without difficulty Bowels wnl- per report Appetite good Taking fluids well Denies pain Physical Exam: Physical Exam Constitutional: Appearance: Normal appearance. Cardiovascular: Rate and Rhythm: Normal rate. Rhythm irregular. Pulses: Normal pulses. Pulmonary: Effort: Pulmonary effort is normal. Breath sounds: Normal breath sounds. Abdominal: General: Bowel sounds are normal. Palpations: Abdomen is soft. Skin: General: Skin is warm and dry. [...] for gait problem. Hematological: Negative. Psychiatric/Behavioral: Negative. Care Plan Goal Progress: Patient will remain free of falls. (Progressing) Start: 12/06/23 Expected End: 04/04/24 Patient will maintain optimal activity level. (Progressing) Start: 11/29/23 Expected End: 01/18/24 Patient's daily care needs are met. (Progressing) Start: 11/29/23 Expected End: 01/18/24 Orders Placed: No orders of the defined types were placed in this encounter. Medications Given: Care Gaps: Care Gaps Care gaps closed this contact:: Education (12/27/231844) Type of education: Clinical/disease (12/27/231844) documented in this encounter Plan of Treatment Upcoming Encounters Date Type Department Care Team (Late st Contact Info) Description 01/01/2024 10:00 AM EST Office Visit [address] [place] [phone] Gilbert Calloway MD [address] [place] [address] [place] [address] 01/02/2024 11:00 AM EST Nurse Only Ancillary [address] [place] [address] [place], Nurse [address] [place] [address] 01/03/2024 2:00 PM EST [facility] Visit [facility] [address] [place] [address] Lana Lieberman RN [address] [place] [address] 01/14/2024 1:00 PM EST [facility] Visit [facility] [address] [place] [address] [place] Ivy PA-C [place] [address] 02/25/2024 11:40 AM EST Office Visit [address] [place] [phone] Daren Varela CRNP [address] [place] [address] [place] [address] 04/04/2024 2:40 PM EST Office Visit Nephrology, Caroline Sparks [address] [place] [address] Tirso Shah MD [address] [facility] [place] [address] 06/30/2024 10:00 AM EDT Office Visit Family Medicine [address] [phone] Gilbert Calloway MD [address] [place] [address] [place] [address] Health Maintenance Due Date Last Done Comments DTap/Tdap Vaccines (1 - Tdap) 11/15/1957 Adult Wellness Visit 2002 Albumin/Creatinine Ratio 07/28/2023 023, 06/09/2020, 03/13/2019, Additional history exists COVID-19 Vaccine ( season) 2023 01/04/2021, 04/19/2020, 04/04/2020, Additional history exists TSH 12/05/2024 12/06/2023, 10/21, 07/27/2022, Additional history exists CKD HGB USE SMARTSET 56714 12/20/202412/20, 12/06/2023, 11/16/2023, Additional history exists CKD PHOS USE SMARTSET 38096 12/20/2024 1102/2023, 11/16/2023, 10/04/2022, Additional history exists [...] filedocumented as of this encounter Care Teams Jump Roll Operator Relationship Specialty Start Date End Date Gilbert Calloway MD [address] [place] [address] [place] [address] PCP - General Family Medicine 07/30/23 documented as of this encounter
--- OUTSIDE RECORDS SUMMARY | 2024-03-16 09:41 | External Medical Summary | Summary of Care ---
Author Name Unknown Organization [facility] Address [address] [place] [address] Phone [phone] Care Team Providers Care Slip Laster Name Role Phone Gilbert Calloway MD Primary Care Provide r Reason for Visit * Reason Comments eRx-Medication Refill Encounter Details Date Type Department Care Team (Late st Contact Info) Description 01/08/2024 Refill Family Medicine [address] [place] [phone] Gilbert Calloway MD [address] [place] [address] [place] [phone] Nausea Allergies Active Allergy Reactions Criticality Noted Date Comments Ergotamine 03/01/2000 vomit Nitroglycerin 03/14/2007 vomitting documented as of this encounter (statuses as of 01/10/2024) Medications Acetaminophen 500 MG Oral Tablet (Tylenol)Indicatio [...] as of this encounter (statuses as of 01/10/2024) Active Problems Problem Noted Date Diagnosed Date [...] atrial fibrillation 03/01/2021 Overview (03/09/2021): dionisio valenzuela 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 CKD [...] as of this encounter (statuses as of 01/10/2024) Immunizations Name Administration Dates Next Due COVID-19 [...] encounter Miscellaneous Notes * Telephone Encounter - Lester Villareal [facility] - 01/10/2024 7:57 AM ESTRefused Prescriptions: Disp Refills Ondansetron HCl 4 MG Oral Tablet (Zofran) 30 Tab*2 Sig: TAKE ONE TABLET BY MOUTH EVERY 6 HOURS NEEDED FOR NAUSEARefused By: LESTER VILLAREAL for Refusal: Other (comment below)Reason for Refusal Comment: prn med documented in this encounter Plan of Treatment Upcoming Encounters Date Type Department Care Team (Late st Contact Info) Description 01/14/2024 1:00 PM EST Home Visit [facility] [address] [place] [address] [place] Ivy PA-C [address] [place] [address] 02/25/2024 11:40 AM EST Office Visit Family [address] [place] [phone] Daren Varela CRNP [address] [place] [address] [place] [address] 04/04/2024 2:40 PM EST Office Visit Nephrology, [facility] [address] [place] [address] Tirso Shah MD [address] [place] [address] 06/30/2024 10:00 AM EDT Office Visit Family [address] [place] [phone] Gilbert Calloawy MD [address] [place] [address] [place] [address] Health Maintenance Due Date Last Done Comments DTap/Tdap Vaccines (1 - Tdap) 11/15/1957 Adult Wellness Visit 2002 Albumin/Creatinine Ratio 07/28/2023 023, 06/09/2020, 03/13/2019, Additional history exists COVID-19 Vaccine ( season) 2023 01/04/2021, 04/19/2020, 04/04/2020, Additional history exists TSH 12/05/2024 12/06/2023, 10/21, 07/27/2022, Additional history exists CKD HGB USE SMARTSET 83636 12/20/202412/20, 12/06/2023, 11/16/2023, Additional history exists CKD PHOS USE SMARTSET 71290 12/20/2024 110 02/2023, 11/16/2023, 10/04/2022, Additional history [...] Anxiety state Anxiety state, unspecified Atherosclerosis of [place] coronary artery of [place] heart without angina pectoris Acquired hypothyroidism Unspecified hypothyroidism Dyslipidemia, goal LDL below 100 Other and unspecified hyperlipidemia Aortic ectasia, thoracic (HCC) Thoracic aortic ectasia Chronic atrial fibrillation (HCC) Atrial fibrillation Benign hypertension with stage 3b chronic kidney disease (HCC) Advanced care planning/counseling discussion- Primary Other specified counseling Atherosclerosis of [place] coronary artery of [place] heart without angina pectoris Chronic atrial fibrillation [...] stage 3b chronic kidney disease (HCC) Hypercalcemia Nausea Nausea alone documented in this encounter Care Teams Slip Laster Relationship Specialty Start Date End Date Gilbert Calloway MD [address] [place] [address] [place] [address] PCP - General Family Medicine 07/30/23 documented as of this encounter
--- OUTSIDE RECORDS SUMMARY | 2024-03-16 09:41 | External Medical Summary | Summary of Care ---
Author Name Unknown Organization [facility] Address [address] [place] [address] Phone [phone] Care Team Providers Care Data Coder Operator Name Role Phone Gilbert Calloway MD Primary Care Provide r Reason for Visit * Reason Onset Date Comments Home Health 12/26/2023 Encounter Details Date Type Department Care Team (Late st Contact Info) Description 12/26/2023 Telephone Family Medicine [address] [place] [phone] Gilbert Calloway MD [address] [place] [address] [place] [address] Home Health Allergies Active Allergy Reactions Criticality Noted Date Comments Ergotamine 03/01/2000 vomit Nitroglycerin 03/14/2007 vomitting documented as of this encounter (statuses as of 12/26/2023) Medications Medication Sig Dispensed Refills Start Date [...] as of this encounter (statuses as of 12/26/2023) Active Problems Problem Noted Date Diagnosed Date [...] pain concerns. 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[place] co ronary artery of [place] heart without angina pectoris Last Assessment & Plan: Stable no angina -continue rosuvastatin, metopropolol, Primary hypertension Gastroesophageal reflux dise ase with esophagitis without hemorrhage Last Assessment & Plan: symptoms controlled on pantoprazole Scoliosis of lumbar spine Mixed incontinence urge and stress (male)(female ) documented as of this encounter (statuses as of 12/26/2023) Resolved Problems Problem Noted Date Diagnosed Date [...] as of this encounter (statuses as of 12/26/2023) Immunizations Name Administration Dates Next Due COVID-19 [...] Telephone Encounter - Mee Tee LPN - 12/26/2023 3:03 PM EST Admission/Start of Care Admission/Start of Care: Prudence LUCIA, Calling from: Wes Patient was Admitted to: [facility], for: Confusion from 12/12 to 12/20 Referral ordered by: Referral received for: Senior Living, PT, and OT Planned start of care date:Yes, Date 12/22 Start of care completed on: 12/22 Report/Concerns of:None Symptoms: none Vitals: 12/22 T-97.3 P-67 RR-18 BP-112/68 SP O2-97% RA Lung sounds-Clear Weight-156.6 Narrative: Restart patient since hospital stay for nusing,PT,and OT Next OT visit(s) on 12/26 They will call with any updates or additional concerns from the upcoming HH visit. Last Office Visit: 12/24/2023 Has patient been scheduled or seen in the office for a follow up visit: Yes- on12/24/2023 Advised that orders will be signed by Gilbert Calloway MD and to fax to the office for signature. Please fax orders to [facility] documented in this encounter Plan of Treatment Upcoming Encounters Date Type Department Care Team (Late st Contact Info) Description 12/26/2023 4:00 PM EST [facility] Visit [facility] [address] [place] [address] Lana Lieberman, RN [address] [place] [address] 01/02/2024 11:00 AM EST Nurse Only Ancillary [address] [place] [address] [place], Nurse [address] [place] [address] 01/03/2024 2:00 PM EST Home Visit [facility], [facility] [address] [place] [address] Lana Lieberman, KHARI [address] [place] [address] 01/14/2024 1:00 PM EST Home Visit [facility], [facility] [address] [place] [address] [place] Ivy PA-C [address] [place] [address] 02/25/2024 11:40 AM EST Office Visit Family Medicine [address] [place] [phone] Daren Varela [address] [place] [address] 04/04/2024 2:40 PM EST Office Visit Nephrology, Caroline Sparks [address] [place] [address] Tirso Shah MD [address] [place] [address] 06/30/2024 10:00 AM EDT Office Visit Family Medicine [address] [place] [phone] Gilbert Calloway MD [address] [place] [address] [place] [address] Health Maintenance Due Date Last Done Comments DTap/Tdap Vaccines (1 - Tdap) 11/15/1957 Adult Wellness Visit 2002 Albumin/Creatinine Ratio 07/28/2023 023, 06/09/2020, 03/13/2019, Additional history exists COVID-19 Vaccine ( season) 2023 01/04/2021, 04/19/2020, 04/04/2020, Additional history exists TSH 12/05/2024 12/06/2023, 10/21, 07/27/2022, Additional history exists CKD HGB USE SMARTSET 27984 12/20/202412/20, 12/06/2023, 11/16/2023, Additional history exists CKD PHOS USE SMARTSET 62831 12/20/2024 1102/2023, 11/16/2023, 10/04/2022, Additional history exists [...] filedocumented as of this encounter Care Teams Data Coder Operator Relationship Specialty Start Date End Date Gilbert Calloway MD [address] [place] [address] [place] [phone] PCP - General Family Medicine 07/30/23 documented as of this encounter
--- OUTSIDE RECORDS SUMMARY | 2024-03-16 09:42 | External Medical Summary | Summary of Care ---
Author Name Unknown Organization [facility] Address [address] [place] [address] Phone [phone] Care Team Providers Care Laboratory Asst Name Role Phone Gilbert Calloway MD Primary Care Provide r Reason for Visit * Reason Onset Date Comments [facility]: Engagement 12/21/2023 Encounter Details Date Type Department Care Team (Late st Contact Info) Description 12/21/2023 Telephone [facility] [address] [place] [phone] Joelle Vázquez, TAM [address] [place], [place] [phone] [facility]: Engagement Allergies Active Allergy Reactions Criticality Noted Date Comments Ergotamine 03/01/2000 vomit Nitroglycerin 03/14/2007 vomitting documented as of this encounter (statuses as of 12/21/2023) Medications Medication Sig Dispensed Refills Start Date [...] One daily 30 Tablet 5 12/06/2023 Active Metoprolol Succinate ER 25 MG Oral Tablet Extended Release 24 Hour (toPROL XL) Take 1.5 Tablets by mouth in the morning. In the morning.. 30 Tablet 12/14/2023 Active documented as of this encounter (statuses as of 12/21/2023) Active Problems Problem Noted Date Diagnosed Date [...] BMP Pro-BNP Her weights are stable on [facility]. She appears euvolemic today. Spondylosis of lumbar 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[place] co ronary artery of [place] heart without angina pectoris Last Assessment & Plan: Stable no angina -continue rosuvastatin, metopropolol, Primary hypertension Gastroesophageal reflux dise ase with esophagitis without hemorrhage Last Assessment & Plan: symptoms controlled on pantoprazole Scoliosis of lumbar spine Mixed incontinence urge and stress (male)(female ) documented as of this encounter (statuses as of 12/21/2023) Resolved Problems Problem Noted Date Diagnosed Date [...] as of this encounter (statuses as of 12/21/2023) Immunizations Name Administration Dates Next Due COVID-19 [...] Miscellaneous Notes * Telephone Encounter - Joelle Vázquez OSA - 12/21/2023 2:36 PM EDT TT request to set up GARCÍA for [facility] , due to having PCP same day , we moved it to 01/13, pt agreeable. documented in this encounter Plan of Treatment Upcoming Encounters Date Type Department Care Team (Late st Contact Info) Description 12/24/2023 11:20 AM EST [facility] [address] [place] [address] [place] [phone] Gilbert Calloway MD [address] [place] [address] [place] [address] 12/26/2023 4:00 PM EST Home Visit [facility] [place] [address] [place] [address] Lana Lieberman, KHARI 132 [facility] [place] [address] 01/14/2024 1:00 PM EST [facility] Visit [facility] 132 [facility] [place] [address] [place] Ivy PA-C 132 [facility] [place] [address] 04/04/2024 2:40 PM EST Office Visit Nephrology, [facility] 200 [facility] [place] [address] Tirso Shah MD 200 [facility] [place] [address] 06/30/2024 10:00 AM EDT Office Visit Family Medicine [address] [phone] Gilbert Calloway MD [address] [place] [address] [place] [address] Health Maintenance Due Date Last Done Comments DTap/Tdap Vaccines (1 - Tdap) 11/15/1957 Adult Wellness Visit 2002 Depression Monitoring 09/29/2020 09/30/2019 Albumin/Creatinine Ratio 07/28/2023 023, 06/09/2020, 03/13/2019, Additional history exists COVID-19 Vaccine (2023- season) 2023 01/04/2021, 04/19/2020, 04/04/2020, Additional history exists Influenza Vaccine (FLU shot) (#1) 2023 01/10/2022, 11/18/2020, 12/06/2019, Additional history exists CKD PHOS USE SMARTSET 95171 11/15/202410/21, 10/04/2022, 06/08/2021, Additional history exists CKD HGB USE SMARTSET 20521 12/05/202412/05, 11/16/2023, 11/16/2023, Additional history exists TSH [...] filedocumented as of this encounter Care Teams Laboratory Asst Relationship Specialty Start Date End Date Gilbert Calloway MD [address] [place] [address] [place] [phone] PCP - General Family Medicine 07/30/23 documented as of this encounter
--- OUTSIDE RECORDS SUMMARY | 2024-03-16 09:42 | External Medical Summary | Summary of Care ---
Author Name Unknown Organization [facility] Address [address] [place] [address] Phone [phone] Care Team Providers Care Program Director/Music Director Name Role Phone Gilbert Calloway MD Primary Care Provide r Encounter Details Date Type Department Care Team (Late st Contact Info) Description 12/17/2023 Population Health External Data Unspecified Department Allergies Active Allergy Reactions Criticality Noted Date Comments Ergotamine 03/01/2000 vomit Nitroglycerin 03/14/2007 vomitting documented as of this encounter (statuses as of 12/17/2023) Medications Medication Sig Dispensed Refills Start Date [...] as of this encounter (statuses as of 12/17/2023) Active Problems Problem Noted Date Diagnosed Date [...] Pro-BNP Her weights are stable on [facility]. She appears euvolemic today. Spondylosis of lumbar 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[place] co ronary artery of [place] heart without angina pectoris Last Assessment & Plan: Stable no angina -continue rosuvastatin, metopropolol, Primary hypertension Gastroesophageal reflux dise ase with esophagitis without hemorrhage Last Assessment & Plan: symptoms controlled on pantoprazole Scoliosis of lumbar spine Mixed incontinence urge and stress (male)(female ) documented as of this encounter (statuses as of 12/17/2023) Resolved Problems Problem Noted Date Diagnosed Date [...] as of this encounter (statuses as of 12/17/2023) Immunizations Name Administration Dates Next Due COVID-19 [...] Description 12/26/2023 4:00 PM EST Home Visit [facility] [address] [place] [address] Lana Lieberman, KHARI [address] [place] [address] 04/04/2024 2:40 PM EST Office Visit Nephrology, [facility] [address] [facility] [place] [address] Tirso Shah MD [address] [facility] [place] [address] 06/30/2024 10:00 AM EDT Office Visit Family Medicine [address] [place] [phone] Gilbert Calloway MD [address] [place] [address] [place] [address] Health Maintenance Due Date Last Done Comments DTap/Tdap Vaccines (1 - Tdap) 11/15/1957 Adult Wellness Visit 2002 Depression Monitoring 09/29/2020 09/30/2019 Albumin/Creatinine Ratio 07/28/2023 023, 06/09/2020, 03/13/2019, Additional history exists COVID-19 Vaccine ( season) 2023 01/04/2021, 04/19/2020, 04/04/2020, Additional history exists Influenza Vaccine (FLU shot) (#1) 2023 01/10/2022, 11/18/2020, 12/06/2019, Additional history exists CKD PHOS USE SMARTSET 16588 11/15/202410/21, 10/04/2022, 06/08/2021, Additional history exists CKD HGB USE SMARTSET 41878 12/05/202412/05, 11/16/2023, 11/16/2023, Additional history exists TSH [...] filedocumented as of this encounter Care Teams Program Director/Music Director Relationship Specialty Start Date End Date Gilbert Calloway MD [address] [place] [address] [place] [address] PCP - General Family Medicine 07/30/23 documented as of this encounter
--- OUTSIDE RECORDS SUMMARY | 2024-03-16 09:42 | External Medical Summary | Summary of Care ---
Author Name Unknown Organization [facility] Address [address] [place] [address] Phone [phone] Care Team Providers Care Fitness Sales Consultant Name Role Phone Gilbert Calloway MD Primary Care Provide r Reason for Visit * Reason Onset Date Comments [facility]: Maintenance 12/23/2023 Encounter Details Date Type Department Care Team (Late st Contact Info) Description 12/23/2023 2:00 PM EST Scheduled Telephone [facility], [facility] [address] [place] [address] [facility], Nurse [facility] [address] [place] [address] Allergies Active Allergy Reactions Criticality Noted Date Comments Ergotamine 03/01/2000 vomit Nitroglycerin 03/14/2007 vomitting documented as of this encounter (statuses as of 12/23/2023) Medications Medication Sig Dispensed Refills Start Date [...] as of this encounter (statuses as of 12/23/2023) Active Problems Problem Noted Date Diagnosed Date [...] pain concerns. She is aware [facility] does not manage chronic pain meds. With [...] as of this encounter (statuses as of 12/23/2023) Resolved Problems Problem Noted Date Diagnosed Date [...] as of this encounter (statuses as of 12/23/2023) Immunizations Name Administration Dates Next Due COVID-19 [...] Telephone Encounter - Jinny Mena RN - 12/23/2023 12:55 PM EST [facility] Telephonic Nurse Follow-Up Call [facility] Subprogram: Focused Care Management (3-9 months) Follow Up Call Type: Weekend Call Acute issue requiring follow-up call: Other: GARCÍA Objective: 12/06/2023 10:32 AM 12/05/2023 11:49 AM 11/29/2023 2:57 PM 10/12/2023 10:51 AM 09/25/2023 11:55 AM VITALS ACROSS ENCOUNTERS BP 152/90 145/83 130/78 126/74 148/68 Pulse 82 80 80 86 68 Weight 70.5 kg BMI 29.36 kg/m2 Subjective: Condition Status: [facility] Current Concerns: Left message requesting call back, toll free number provided in message Disposition: Routed to [facility] and/or [facility] Care Team for further advice Has PCP appt. Scheduled for tomorrow Future Visits Scheduled: Future Appointments-next 60 days Date/Time Provider Specialty Dept Phone 12/23/2023 2:00 PM Region, Nurse Manuelsamara Johnson [facility] [phone] 12/24/2023 11:20 AM (Arrive by 11:05 AM) Gilbert Calloway MD Family Medicine [phone] 12/26/2023 4:00 PM Laan Lieberman, KHARI [facility] [phone] 01/14/2024 1:00 PM Anthony Ivy PA-C [facility] [phone] 04/04/2024 2:40 PM (Arrive by 2:25 PM) Tirso Shah MD Nephrology [phone] 06/30/2024 10:00 AM (Arrive by 9:45 AM) Gilbert Calloway MD Family Medicine [phone] Jinny Mena RN documented in this encounter Plan of Treatment Upcoming Encounters Date Type Department Care Team (Late st Contact Info) Description 12/24/2023 11:20 AM EST Office Visit Family Medicine [address] [place] [phone] Gilbert Calloway MD [address] [place] [address] [place] [address] 12/26/2023 4:00 PM EST Home Visit [facility], [facility] [address] [address] Lana Lieberman, RN [address] [place] [address] 01/14/2024 1:00 PM EST Home Visit [facility], [facility] [address] [place] [address] Anthony Ivy PA-C [address] [place] [address] 04/04/2024 2:40 PM EST Office Visit Nephrology, [facility] [address] [facility] [place] [address] Tirso Shah MD [address] [place] [address] 06/30/2024 10:00 AM EDT Office Visit Family [address] [phone] Gilbert Calloway MD [address] [place] [address] [place] [address] Health Maintenance Due Date Last Done Comments DTap/Tdap Vaccines (1 - Tdap) 11/15/1957 Adult Wellness Visit 2002 Depression Monitoring 09/29/2020 09/30/2019 Albumin/Creatinine Ratio 07/28/2023 023, 06/09/2020, 03/13/2019, Additional history exists COVID-19 Vaccine ( season) 2023 01/04/2021, 04/19/2020, 04/04/2020, Additional history exists Influenza Vaccine (FLU shot) (#1) 2023 01/10/2022, 11/18/2020, 12/06/2019, Additional history exists CKD PHOS USE SMARTSET 05405 11/15/202410/21, 10/04/2022, 06/08/2021, Additional history exists CKD HGB USE SMARTSET 84026 12/05/202412/05, 11/16/2023, 11/16/2023, Additional history exists TSH [...] filedocumented as of this encounter Care Teams Fitness Sales Consultant Relationship Specialty Start Date End Date Gilbert Calloway MD [address] [place] [address] [place] [address] PCP - General Family Medicine 07/30/23 documented as of this encounter
--- OUTSIDE RECORDS SUMMARY | 2024-03-16 09:42 | External Medical Summary | Summary of Care ---
Author Name Unknown Organization [facility] Address [address] [place] [address] Phone [phone] Care Team Providers Care Deployment Technician Name Role Phone Gilbert Calloway MD Primary Care Provide r Reason for Visit * Reason Onset Date Comments Home Health 12/13/2023 Encounter Details Date Type Department Care Team (Late st Contact Info) Description 12/13/2023 Telephone Family Medicine [address] [place] [address] Gilbert Calloway MD [address] [place] [address] [place] [address] Home Health Allergies Active Allergy Reactions Criticality Noted Date Comments Ergotamine 03/01/2000 vomit Nitroglycerin 03/14/2007 vomitting documented as of this encounter (statuses as of 12/14/2023) Medications Medication Sig Dispensed Refills Start Date [...] In the morning.. 30 Tablet 12/14/2023 Active Metoprolol Succinate ER 25 MG Oral Tablet Extended Release 24 Hour (toPROL XL) Take 1.5 Tablets by mouth in the morning. In the morning.. 30 Tablet 11/22/2023 Discontinue d(Refill) documented as of this encounter (statuses as of 12/14/2023) Active Problems Problem Noted Date Diagnosed Date [...] pain concerns. She is aware [facility] does not manage chronic pain meds. 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[place] co ronary artery of [place] heart without angina pectoris Last Assessment & Plan: Stable no angina -continue rosuvastatin, metopropolol, Primary hypertension Gastroesophageal reflux dise ase with esophagitis without hemorrhage Last Assessment & Plan: symptoms controlled on pantoprazole Scoliosis of lumbar spine Mixed incontinence urge and stress (male)(female ) documented as of this encounter (statuses as of 12/14/2023) Resolved Problems Problem Noted Date Diagnosed Date [...] as of this encounter (statuses as of 12/14/2023) Immunizations Name Administration Dates Next Due COVID-19 [...] No 12/05/2023 Does the household have a [facility] source of income? (Household - for [...] Telephone Encounter - Gilbert Calloway MD - 12/14/2023 11:41 AM EDT Noted and thank you * Telephone Encounter - Mee Tee LPN - 12/13/2023 3:28 PM EDT HH Concerns Onesimo GONG, Calling from: Wes Report/Concerns of: Medication Related Symptoms: See Narrative Vitals: T-97.2 P-59 RR-18 BP -142/80 SP O2-96% RA Lung sounds-Clear Narrative: Onesimo with patient right now. Patient has not been taking any of her medications for about 1 wks. [facility] nursing seen patient in [facility] and she was alert and oriented and meds managed by nursing staff. When patient returned home onesimo seen patient on 12/04 she noticed forget fullness and SOB. Alert and oriented x 3. Onesimo states she is not getting any worse at today visit with mem ory/SOB. Past [facility] / [facility] notes express confusion and not managing medications. Patient is back at [facility] and lives alone. Last Nursing visit- 11/26-by Giuseppe LUCIA while at [facility] and 12/04- Onesimo GONG Next visits: PT-12/16 Nursing-12/17 While on phone with patient started to voice chest pain, jaw pain, and SOB. Vitals WNL(see above). Attempted to call clinic. Pt verbally told Onesimo and me that she wants to go to ER. Onesimo will call 911. Call back Onesimo with any advice or orders at [phone] Please fax new orders to [facility] contacted 911 documented in this encounter Plan of Treatment Upcoming Encounters Date Type Department Care Team (Late st Contact Info) Description 12/26/2023 4:00 PM EST Home Visit [facility] [address] [facility] [place] [address] Lana Lieebrman RN [address] [facility] [place] [address] 04/04/2024 2:40 PM EST Office Visit [facility]rologyCar[facility] [address] [place] [address] Tirso Shah MD [address] [place] [address] 06/30/2024 10:00 AM EDT Office Visit Family [address] [phone] Gilbert Calloway MD [address] [place] [address] [place] [address] Health Maintenance Due Date Last Done Comments DTap/Tdap Vaccines (1 - Tdap) 11/15/1957 Adult Wellness Visit 2002 Depression Monitoring 09/29/2020 09/30/2019 Albumin/Creatinine Ratio 07/28/2023 023, 06/09/2020, 03/13/2019, Additional history exists COVID-19 Vaccine ( season) 2023 01/04/2021, 04/19/2020, 04/04/2020, Additional history exists Influenza Vaccine (FLU shot) (#1) 2023 01/10/2022, 11/18/2020, 12/06/2019, Additional history exists CKD PHOS USE SMARTSET 53763 11/15/202410/21, 10/04/2022, 06/08/2021, Additional history exists CKD HGB USE SMARTSET 09161 12/05/202412/05, 11/16/2023, 11/16/2023, Additional history exists TSH [...] filedocumented as of this encounter Care Teams Deployment Technician Relationship Specialty Start Date End Date Gilbert Calloway MD [address] [place] [address] [place] [address] PCP - General Family Medicine 07/30/23 documented as of this encounter
--- OUTSIDE RECORDS SUMMARY | 2024-03-16 09:42 | External Medical Summary | Summary of Care ---
Author Name Unknown Organization [facility] Address [address] [facility] [place] [address] Phone [phone] Care Team Providers Care Diesel Truck Mechanic Name Role Phone Gilbert Calloway MD Primary Care Provide r Reason for Visit * Reason Onset Date Comments [facility]: Maintenance 12/22/2023 Encounter Details Date Type Department Care Team (Late st Contact Info) Description 12/22/2023 9:45 AM EDT Scheduled Telephone [facility], [facility] [address] [facility] [place] [address] [facility], Nurse [facility] [address] [facility] [place] [address] Allergies Active Allergy Reactions Criticality Noted Date Comments Ergotamine 03/01/2000 vomit Nitroglycerin 03/14/2007 vomitting documented as of this encounter (statuses as of 12/22/2023) Medications Medication Sig Dispensed Refills Start Date [...] as of this encounter (statuses as of 12/22/2023) Active Problems Problem Noted Date Diagnosed Date [...] BMP Pro-BNP Her weights are stable on [facility]. She appears euvolemic today. Spondylosis of lumbar [...] discuss her pain concerns. She is aware [facility] does not manage chronic pain 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[place] co ronary artery of [place] heart without angina pectoris Last Assessment & Plan: Stable no angina -continue rosuvastatin, metopropolol, Primary hypertension Gastroesophageal reflux dise ase with esophagitis without hemorrhage Last Assessment & Plan: symptoms controlled on pantoprazole Scoliosis of lumbar spine Mixed incontinence urge and stress (male)(female ) documented as of this encounter (statuses as of 12/22/2023) Resolved Problems Problem Noted Date Diagnosed Date [...] as of this encounter (statuses as of 12/22/2023) Immunizations Name Administration Dates Next Due COVID-19 [...] encounter Miscellaneous Notes * Telephone Encounter - Sophie Coyle RN - 12/22/2023 11:05 AM EDT GARCÍA f/u call Attempted to contact pt today at [phone]-No answer-voice mail box is full and unable to leave a message. documented in this encounter Plan of Treatment Upcoming Encounters Date Type Department Care Team (Late st Contact Info) Description 12/23/2023 2:00 PM EST Scheduled Telephone [facility], [facility] [address] [place] [address] [facility], Nurse [place] [address] [address] [place] [address] 12/24/2023 11:20 AM EST Office Visit Family Medicine [address] [place] [address] Gilbert Calloway MD [address] [place] [address] [place] [address] 12/26/2023 4:00 PM EST Home Visit [facility], [facility] [address] [place] [address] Lana Lieberman, KHARI [address] [facility] [place] [address] 01/14/2024 1:00 PM EST Home Visit [facility], [facility] [address] [facility] [place] [address] Anthony Ivy PA-C 132 [facility] [place] [address] 04/04/2024 2:40 PM EST Office Visit Nephrology, [facility] [address] [facility] [place] [address] Tirso Shah MD [address] [facility] [place] [address] 06/30/2024 10:00 AM EDT Office Visit Family Medicine [address] [phone] Gilbert Calloway MD [address] [place] [address] [place] [address] Health Maintenance Due Date Last Done Comments DTap/Tdap Vaccines (1 - Tdap) 11/15/1957 Adult Wellness Visit 2002 Depression Monitoring 09/29/2020 09/30/2019 Albumin/Creatinine Ratio 07/28/2023 023, 06/09/2020, 03/13/2019, Additional history exists COVID-19 Vaccine ( season) 2023 01/04/2021, 04/19/2020, 04/04/2020, Additional history exists Influenza Vaccine (FLU shot) (#1) 2023 01/10/2022, 11/18/2020, 12/06/2019, Additional history exists CKD PHOS USE SMARTSET 05646 11/15/202410/21, 10/04/2022, 06/08/2021, Additional history exists CKD HGB USE SMARTSET 37547 12/05/202412/05, 11/16/2023, 11/16/2023, Additional history exists TSH [...] filedocumented as of this encounter Care Teams Diesel Truck Mechanic Relationship Specialty Start Date End Date Gilbert Calloway MD [address] [place] [address] [place] [address] PCP - General Family Medicine 07/30/23 documented as of this encounter
--- OUTSIDE RECORDS SUMMARY | 2024-03-16 09:42 | External Medical Summary | Summary of Care ---
Author Name Unknown Organization [facility] Address [address] [place] [address] Phone [phone] Care Team Providers Care Digital Pre Press Operator Name Role Phone Gilbert Calloway MD Primary Care Provide r Reason for Visit * Reason Onset Date Comments [facility]: Engagement 12/21/2023 Encounter Details Date Type Department Care Team (Late st Contact Info) Description 12/21/2023 Telephone [facility], [place] [address] [place] [phone] Joelle Vázquez, TAM [address] [place], [place] [phone] [facility]: Engagement Allergies Active Allergy [...] BMP Pro-BNP Her weights are stable on [place]. She appears euvolemic today. Spondylosis of lumbar [...] discuss her pain concerns. She is aware [facility] does not manage chronic pain 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[place] co ronary artery of [place] heart without angina pectoris Last Assessment [...] TT request to set up GARCÍA for [facility] , due to having PCP same day , we moved it to 01/13, pt agreeable. documented in this encounter Plan of Treatment Upcoming Encounters Date Type Department Care Team (Late st Contact Info) Description 12/22/2023 9:45 AM EDT Scheduled Telephone [facility], [facility] [address] [place] [address] [facility], Nurse [facility] [address] [place] [place] [address] 12/24/2023 11:20 AM EST Office Visit Family [address] [place] [address] Gilbert Calloway MD [address] [place] [address] [place] [address] 12/26/2023 4:00 PM EST [facility] Visit [facility], [facility] 132 [place] [address] Lana Lieberman, KHARI [address] [place] [address] 01/14/2024 1:00 PM EST Home Visit [facility], [facility] 132 [facility] [place] [address] Anthony Ivy PA-C 132 [place] [address] 04/04/2024 2:40 PM EST Office Visit Nephrology, [facility] 200 [facility] [place] [address] Tirso Shah MD 200 [facility] [place] [address] 06/30/2024 10:00 AM EDT Office Visit Family Medicine [address] [place] [address] Gilbert Calloway MD [address] [place] [address] [place] [address] Health Maintenance Due Date Last Done Comments DTap/Tdap Vaccines (1 - Tdap) 11/15/1957 Adult Wellness Visit 2002 Depression Monitoring 09/29/2020 09/30/2019 Albumin/Creatinine Ratio 07/28/2023 023, 06/09/2020, 03/13/2019, Additional history exists COVID-19 Vaccine ( season) 2023 01/04/2021, 04/19/2020, 04/04/2020, Additional history exists Influenza Vaccine (FLU shot) (#1) 2023 01/10/2022, 11/18/2020, 12/06/2019, Additional history exists CKD PHOS USE SMARTSET 58765 11/15/202410/21, 10/04/2022, 06/08/2021, Additional history exists CKD HGB USE SMARTSET 56838 12/05/202412/05, 11/16/2023, 11/16/2023, Additional history exists TSH [...] as of this encounter Care Teams Digital Pre Press Operator Relationship Specialty Start Date End Date Gilbert Calloway MD [address] [place] [address] [place] [address] PCP - General Family Medicine 07/30/23 documented as of this encounter
[2024-03-16 10:02] LABS: Basophils # (auto) 0.05 K/uL (0.00-0.20); Basophils % (auto) 0.9 %; Eosinophils # (auto) 0.25 K/uL (0.00-0.50); Eosinophils % (auto) 4.5 %; Hematocrit (blood only) 28.6 % (37.0-47.0); Hemoglobin 9.2 g/dl (12.0-16.0); Immature Granulocytes # (auto) 0.01 K/uL (0.01-0.20); Immature Granulocytes % (auto) 0.2 %; Lymphocytes # (auto) 1.69 K/uL (1.20-3.40); Lymphocytes % (auto) 30.7 %; Mean Corpuscular Hemoglobin 27.2 pg (25.0-34.0); Mean Corpuscular Hgb Conc 32.2 g/dL (32.0-36.0); Mean Corpuscular Volume 84.6 fL (80.0-100.0); Mean Platelet Volume 9.3 fL (9.4-12.4); Monocytes # (auto) 0.65 K/uL (0.11-0.59); Monocytes % (auto) 11.8 %; Neutrophils # (auto) 2.85 K/uL (1.40-6.50); Neutrophils % (auto) 51.9 %; Platelet Count 173 K/uL (130-400); RDW Coefficient of Variation 15.3 % (11.5-14.5); RDW Standard Deviation 46.1 fL (36.4-46.3); Red Blood Count 3.38 M/uL (4.20-5.40)
[2024-03-16 10:23] LABS: Albumin Globulin Ratio 1.4 (0.9-2); Albumin Level 3.9 gm/dl (3.4-5.0); Bilirubin,Total 0.9 mg/dl (0.2-1.0); Calcium 10.1 mg/dl (8.6-10.3); Creatinine Clr Calc Pharmacy 32.5 ml/min; Globulin 2.7 gm/dl (2.5-4.0); Potassium 4.2 mmol/L (3.5-5.1); Total Protein 6.6 gm/dl (6.0-8.3)
[2024-03-16 10:25] LABS: INR 1.1 (0.9-1.1)
[2024-03-16 10:29] LABS: Troponin I High Sensitivity 13.6 pg/ml (0-14)
--- NOTE | 2024-03-16 10:42 | Emergency Department Note ---
Impression & Plan SOB (shortness of breath), Hypertension ED Provider Note NAME: DYLAN LEACH AGE: 85 SEX: Female INFORMANT: Patient ED PROVIDER(S): Jesus Manuel Gallardo MD CHIEF COMPLAINT: Shortness of breath PLAN: Disposition: Admitted Outpatient prescription management: none Referral: None MEDICAL DECISION MAKING: Patient present because of shortness of breath. Workup was initiated. Chest x- ray did revealed atelectasis versus infiltrate in the base. Patient does not have any cough or flulike symptoms. The patient was given her morning medications as she was hypertensive and missed them. Patient was found of A-fib on ECG. Patient is anticoagulated. Her BNP is elevated. CT imaging of the chest was performed and reveals finding consistent with CHF. Patient was given IV Lasix. A Edmonds catheter was placed to monitor I's and O's. I discussed further management in the hospital and the patient was in agreement. Consultation was made with the [facility] service. Patient was evaluated in the ER and admitted for further management. Care/management discussed with: geological manager Level of care consideration(s): After review of the information above and other included data, I feel the patient requires escalation of care to admission Triage Nursing notes: reviewed and agree them. Vital Signs: reviewed and remarkable for significant hypertension Additional History obtained from: none Chronic Medical/Social Conditions affecting care: Hypertension, A-fib Prior/ Outside/ External records reviewed: none Differential Diagnosis: Reactive airway disease, pneumonia, pneumothorax, COPD, CHF, infections, cardiac ischemia, pulmonary embolism, musculoskeletal, gastrointestinal, as well as other pathologies. Diagnostics, independently interpreted by me: ECG: Twelve-lead ECG reveals atrial fibrillation at [address] elevation or depression. No PVCs Cardiac Monitoring: Cardiac monitoring ordered by me: The patient was placed on continuous cardiac monitoring and observed. It revealed A-fib at 75 bpm. Medical decision rules: none Imaging studies: Chest x-ray and CT scan as above. HPI: 85 year old Female arrives for evaluation of shortness of breath. This started about 1 hour and is improved. The patient also notes the following associated symptoms, feeling cold and some chest pressure. Patient denies any flulike symptoms. The patient has taken no medication for relieving factors. Current pain is rated as 0/10. Patient did noted discomfort at 5. Patient did not take her morning medications. Patient pt denies LOC, headache, fevers, chills, diaphoresis, visual changes, neck pain, nausea, vomiting, abdominal pain, back pain, melena, hematochezia, urinary symptoms, numbness, weakness, lymphadenopathy, rash, or other complaints.. PAST MEDICAL HISTORY: See Below, A-fib, anticoagulated, hypertension PAST SURGICAL HISTORY: See Below, SOCIAL HISTORY: See Below, retired HOME MEDICATIONS: See Below ALLERGIES: See Below VITALS: See Below PHYSICAL EXAMINATION: GENERAL: Awake, alert, well-appearing, in no distress HENT: Normocephalic, atraumatic. Oropharynx unremarkable. EYES: Normal conjunctiva. Sclera non-icteric. NECK: Inspection normal. Non-tender. Supple. No nuchal rigidity. FROM. No masses. RESPIRATORY: Clear to auscultation. No wheezes. No rales. Normal respiratory effort. CARDIAC: Normal rate. Irregular rhythm. No murmurs. Extremities warm and well perfused. Pulses equal. No JVD. GI: Soft, non-distended. No tenderness to palpation. No rebound or guarding. No masses. RECTAL: Deferred. MUSCULOSKELETAL: Atraumatic. Chest examination reveals no tenderness. The back is symmetrical on inspection without obvious abnormality. There is no CVA tenderness to palpation. No joint edema. LOWER EXTREMITIES: Calves are equal size bilaterally and non-tender. No edema. N chronic venous o discoloration. NEURO: Normal sensorium. No sensory or motor deficits noted. SKIN: No rash or jaundice noted. PROCEDURES: none CRITICAL CARE: none OBSERVATION NOTE: none Past Med/Surg History Problem List Hypertension (Acute) SOB (shortness of breath) (Acute) Ascending aorta dilation Acute alteration in mental status (Acute) Confusion Mobitz type 1 second degree AV block Costochondritis Elevated troponin (Acute) Weakness (Acute) SOB (shortness of breath) (Acute) History of coronary artery disease (Acute) Precordial chest pain (Acute) CAD (coronary artery disease) Hypophosphatemia Hypomagnesemia Acute on chronic diastolic CHF (congestive heart failure) Pneumonia (Acute) Sepsis due to pneumonia Hyperparathyroidism Hypercalcemia Anticoagulant long-term use Precordial chest pain (Acute) (HFpEF) heart failure with preserved ejection fraction Paroxysmal A-fib Chronic heart failure with preserved ejection fraction (HFpEF) Labile hypertension Sinus pause Chest pain, atypical Hypertension (Acute) Hypothyroidism KIM (acute kidney injury) (Acute) Acute on chronic heart failure with preserved ejection fraction (HFpEF) Greater trochanteric bursitis of right hip Anxiety (Chronic) Chronic osteoarthritis (Chronic) GERD (gastroesophageal reflux disease) (Chronic) DJD of left shoulder Primary osteoarthritis, right shoulder Diarrhea (Acute) Urinary incontinence (Chronic) Syncope and collapse Arthritis of right shoulder region (Acute) Depression with anxiety (Acute) Insomnia (Acute) Ambulatory dysfunction (Acute) Arthritis Depression Medical History Somatic dysfunction of sacroiliac joint History of blood transfusion 2012 03/ GASTRIC ULCER History of gastric ulcer 2012 Spinal stenosis Gastric ulcer Atrial fibrillation with rapid ventricular response (11/2022) Fall Moderate mitral regurgitation Transient ischemic attack (TIA) ~2012>REASON FOR PLAVIX Osteoarthritis Chronic back pain Dyslipidemia Chronic kidney disease stage 3 Hypertension Surgical History 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 History of cardiac cath NO STENTS History of coronary artery bypass graft 1998 (1 VESSEL) S/P epidural steroid injection History of esophagogastroduodenoscopy (EGD) S/p reverse total shoulder arthroplasty RT/LEFT History of abdominoplasty PANNICULECTOMY History of colonoscopy History of arthroplasty of right hip History of arthroplasty of left hip History of hysterectomy with oophorectomy History of arthroplasty of left shoulder History of tonsillectomy and adenoidectomy H/O bilateral salpingo-oophorectomy with hyter Family History Father , age 74 Allergic reaction Mother , 80s CHF (congestive heart failure) Other No family history of adverse response to anesthesia Social History Smoking Status: Never smoker Second Hand Exposure: No; Do You Dip or Chew Tobacco: No; Hx Alcohol Use: No Hx Substance Use: No Preferred Language: Lithuanian Communication Ability: Effective Visual Impairment: No Limitations Itinerant Teacher Assistant Required: No Beliefs That Will Affect Care: None marital status: Single Current Living Situation: Alone Current Living Situation Comment: [facility] How many Children do You have: 0 Feels Safe at Home: Yes Safety Concerns: Feels Safe At This Time Assistive Devices: None Allergies Allergies Allergy/AdvReac Type Severity Reaction Status Date / Time nitroglycerin AdvReac Severe "PROJECTILE Verified 01/29/23 15:15 VOMITTING" ergotamine AdvReac Intermediate vomiting Verified 01/29/23 15:15 Home Meds Home Medications Medication Instructions Recorded Confirmed apixaban 5 mg tablet (Eliquis) 5 mg PO BID 12/13/23 03/16/24 buspirone 10 mg tablet 10 mg PO BID 12/13/23 03/16/24 calcitriol 0.25 mcg capsule 0.25 mcg PO UD 12/13/23 03/16/24 gabapentin 300 mg capsule 300 mg PO TID 12/13/23 03/16/24 metoprolol succinate 25 mg 37.5 mg PO DAILY 12/13/23 03/16/24 tablet,extended release 24 hr pantoprazole 40 mg tablet,delayed 40 mg PO DAILY 12/13/23 03/16/24 release rosuvastatin 10 mg tablet 10 mg PO DAILY 12/13/23 03/16/24 losartan 25 mg tablet 25 mg PO DAILY 03/16/24 03/16/24 Previous Rx's Medication Instructions Recorded levothyroxine 75 mcg tablet 75 mcg PO DAILYBB #30 tabs 12/20/23 (Synthroid) Results & Data (ED) Vital Signs Vital Signs - 24 hr 03/16/24 09:37 03/16/24 09:40 03/16/24 10:30 Temperature 37.0 C Temperature Source Oral Pulse Rate 77 Pulse Rate [Apical] 78 78 Pulse Rhythm Irregular Pulse Rhythm [Apical] Irregular Irregular Pulse Strength Normal Respiratory Rate 19 20 23 Respiratory Effort / Characteristics Non-Labored Non-Labored Respiratory Depth Normal Normal Respiratory Pattern Regular Blood Pressure 202/108 H Blood Pressure [Right Arm] 202/108 H 189/99 H Blood Pressure Mean 139 Blood Pressure Mean [Right Arm] 139 129 Blood Pressure Position Sitting Blood Pressure Position [Right Arm] Lying Pulse Oximetry 99 99 99 Oxygen Delivery Method Room Air Room Air Room Air Sepsis Recent Fever Within 48 Hours No Sepsis New/Unexplained Change in Mental Status No Sepsis Action Taken by Nursing No Action Required 03/16/24 10:36 03/16/24 11:03 03/16/24 11:14 Temperature Temperature Source Pulse Rate 75 84 Pulse Rate [Apical] Pulse Rhythm Pulse Rhythm [Apical] Pulse Strength Respiratory Rate 20 20 Respiratory Effort / Characteristics Respiratory Depth Respiratory Pattern Blood Pressure 189/99 H 206/117 H Blood Pressure [Right Arm] Blood Pressure Mean 129 146 Blood Pressure Mean [Right Arm] Blood Pressure Position Blood Pressure Position [Right Arm] Pulse Oximetry 96 95 93 Oxygen Delivery Method Room Air Room Air Room Air Sepsis Recent Fever Within 48 Hours Sepsis New/Unexplained Change in Mental Status Sepsis Action Taken by Nursing 03/16/24 11:35 03/16/24 12:00 03/16/24 13:48 Temperature Temperature Source Pulse Rate 76 101 H Pulse Rate [Apical] 67 Pulse Rhythm Pulse Rhythm [Apical] Irregular Pulse Strength Respiratory Rate 28 H 23 Respiratory Effort / Characteristics Respiratory Depth Respiratory Pattern Blood Pressure 202/99 H Blood Pressure [Right Arm] 173/102 H Blood Pressure Mean 133 Blood Pressure Mean [Right Arm] 125 Blood Pressure Position Blood Pressure Position [Right Arm] Lying Pulse Oximetry 96 97 Oxygen Delivery Method Room Air Sepsis Recent Fever Within 48 Hours Sepsis New/Unexplained Change in Mental Status Sepsis Action Taken by Nursing Laboratory Data 03/16/24 09:45 03/16/24 09:45 Lab Results 03/16/24 03/16/24 Range/Units 09:45 09:55 WBC 5.50 (4.8-10.8) K/ul RBC 3.38 L (4.20-5.40) M/uL Hgb 9.2 L (12.0-16.0) g/dl Hct 28.6 L (37.0-47.0) % MCV 84.6 (80.0-100.0) fL MCH 27.2 (25.0-34.0) pg MCHC 32.2 (32.0-36.0) g/dL RDW Std Deviation 46.1 (36.4-46.3) fL RDW Coeff of Howie 15.3 H (11.5-14.5) % Plt Count 173 (130-400) K/uL MPV 9.3 L (9.4-12.4) fL Immature Gran % (Auto) 0.2 % Neut % (Auto) 51.9 % Lymph % (Auto) 30.7 % Davie % (Auto) 11.8 % Eos % (Auto) 4.5 % Baso % (Auto) 0.9 % Neut # (Auto) 2.85 (1.40-6.50) K/uL Lymph # (Auto) 1.69 (1.20-3.40) K/uL Davie # (Auto) 0.65 H (0.11-0.59) K/uL Eos # (Auto) 0.25 (0.00-0.50) K/uL Baso # (Auto) 0.05 (0.00-0.20) K/uL Immature Gran # (Auto) 0.01 (0.01-0.20) K/uL PT 12.0 (9.0-12.0) Seconds INR 1.1 (0.9-1.1) Sodium 138 (136-145) mmol/L Potassium 4.2 (3.5-5.1) mmol/L Chloride 108 H (98-107) mmol/L Carbon Dioxide 23 (21-32) mmol/L Anion Gap 7 (3-11) BUN 19 (6-23) mg/dl Creatinine 1.19 (0.6-1.2) mg/dl Est Cr Clr Drug Dosing 32.5 ml/min eGFR 44.25 BUN/Creatinine Ratio 16.0 (10-20) Glucose 93 (70-99(Fasting)) mg/dl Calcium 10.1 (8.6-10.3) mg/dl Total Bilirubin 0.9 (0.2-1.0) mg/dl AST 31 (13-39) U/L ALT 35 (7-52) U/L Alkaline Phosphatase 87 (34-104) U/L Troponin I High Sens 13.6 (0-14) pg/ml B-Natriuretic Peptide 626 H (0-100) pg/ml Total Protein 6.6 (6.0-8.3) gm/dl Albumin 3.9 (3.4-5.0) gm/dl Globulin 2.7 (2.5-4.0) gm/dl Albumin/Globulin Ratio 1.4 (0.9-2) Lipase 33 (11-82) U/L Adenovirus (PCR) Not Detected (NotDetected) B. pertussis DNA (PCR) Not Detected (NotDetected) B.parapertussis DNA PCR Not Detected (NotDetected) C. pneumoniae DNA (PCR) Not Detected (NotDetected) Coronavirus OC43 (PCR) Not Detected (NotDetected) Coronavirus HKU1 (PCR) Not Detected (NotDetected) Coronavirus 229E (PCR) Not Detected (NotDetected) SARS-CoV-2 (PCR) Not Detected (NotDetected) Coronavirus NL63 (PCR) Not Detected (NotDetected) Human Metapneumovir PCR Not Detected (NotDetected) Influenza Type A (PCR) Not Detected (NotDetected) Influenza Type B (PCR) Not Detected (NotDetected) M. pneumoniae (PCR) Not Detected (NotDetected) Parainfluenza 1 (PCR) Not Detected (NotDetected) Parainfluenza 2 (PCR) Not Detected (NotDetected) Parainfluenza 3 (PCR) Not Detected (NotDetected) Parainfluenza 4 (PCR) Not Detected (NotDetected) RSV (PCR) Not Detected (NotDetected) Entero/Rhino (PCR) Not Detected (NotDetected) Administered Medications Gabapentin (Gabapentin 300 Mg Cap) 300 mg PO TID YAN Stop: 04/15/24 15:29 Last Admin: 03/16/24 16:05 Dose: 300 mg Documented By: CARLOS A Labetalol HCl (Labetalol Hcl Iv 5 Mg/Ml 20ml) 10 mg IV Q6H PRN PRN Reason: Hypertension SBP>180orDBP>100 Stop: 04/15/24 12:54 Last Admin: 03/16/24 14:17 Dose: 10 mg Documented By: MARY Discontinued Medications Furosemide (Furosemide Inj 20 Mg/2 Ml Vial) 20 mg IV ONE ONE Stop: 03/16/24 12:19 Last Admin: 03/16/24 12:51 Dose: 20 mg Documented By: MARY Furosemide (Furosemide Inj 20 Mg/2 Ml Vial) 20 mg IV ONE ONE Stop: 03/16/24 16:01 Last Admin: 03/16/24 16:04 Dose: 20 mg Documented By: CARLOS A Magnesium Sulfate/Dextrose (Magnesium Sulfate / D5w) 1 gm in 100 mls @ 50 mls/hr IV ONE ONE Stop: 03/16/24 17:44 Last Admin: 03/16/24 16:04 Dose: 50 mls/hr Documented By: CARLOS A Ioversol (Optiray 320 125ml) 120 ml IV ONCE ONE Stop: 03/16/24 11:39 Last Admin: 03/16/24 11:38 Dose: 120 ml Documented By: DALE Losartan Potassium (Losartan Potassium 25 Mg Tab) 25 mg PO NOW STA Stop: 03/16/24 10:39 Last Admin: 03/16/24 11:12 Dose: 25 mg Documented By: JOHNNIE Losartan Potassium (Losartan Potassium 25 Mg Tab) 25 mg PO ONE ONE Stop: 03/16/24 17:01 Last Admin: 03/16/24 16:13 Dose: Not Given Documented By: CARLOS A Metoprolol Succinate (Metoprolol Succ 25mg Ext Rel Tab) 37.5 mg PO NOW STA Stop: 03/16/24 10:38 Last Admin: 03/16/24 11:12 Dose: 37.5 mg Documented By: JOHNNIE Ondansetron HCl (Ondansetron Inj 2 Mg/Ml 2 Ml Vial) Confirm Administered Dose 4 mg .ROUTE .STK-MED ONE Stop: 03/16/24 15:22 Last Admin: 03/16/24 15:23 Dose: 4 mg Documented By: CARLOS A Imaging Data Radiologist's Impression: Chest X-Ray 03/16/24 09:48 XR chest 1V portable CLINICAL HISTORY: Chest pain, nonspecific COMPARISON STUDY: 12/13/2023 FINDINGS: Stable CABG and bilateral shoulder prostheses. Stable small hiatal hernia. Stable cardiomegaly without pulmonary vascular congestion. There is increased stranding opacity at the left lung base. No other consolidation or pleural effusion. No pneumothorax. IMPRESSION: Atelectasis versus early pneumonia left lung base. ACT 112: Negative or not required by law. Electronically signed by: Raoul Perry M.D. 03/16/2024 10:41 AM Chest CTA 03/16/24 10:58 CT angio chest PE protocol CT DOSE: 603.19 mGy.cm HISTORY: SOB, poss LLL infiltrate. TECHNIQUE: Multiple CTA images of the chest were obtained after the intravenous administration of 120 ml Optiray. Coronal and sagittal MIPS were obtained from the axial data set and were submitted for review. All measurements were obtained according to NASCET criteria. A dose lowering technique was utilized adhering to the principles of ALARA. COMPARISON STUDY: 11/03/2023 FINDINGS: Stable moderate hiatal hernia. Stable cardiomegaly with prominence of the pulmonary vasculature consistent with CHF. There are small bilateral pleural effusions which layer dependently and have a simple appearance. There is mild adjacent compressive atelectasis at bilateral lower lobes. There is mild septal thickening with a few scattered small groundglass pulmonary opacities consistent with mild pulmonary edema. No pneumothorax. No enlarged adenopathy. No pericardial effusion. There are coronary artery and aortic calcifications. No pulmonary embolism. There are diffuse thoracic spine degenerative changes. IMPRESSION: 1. No pulmonary embolism. 2. CHF with small bilateral pleural effusions and mild adjacent compressive atelectasis at the lower lung lobes. Mild pulmonary edema. No pneumonia seen. 3. Otherwise as described. ACT 112: Negative or not required by law. The above report was generated using voice recognition software. It may contain grammatical, syntax or spelling errors. Electronically signed by: Raoul Perry M.D. 03/16/2024 12:12 PM Discharge Plan Visit Data Chief Complaint: Shortness of Breath/Dyspnea ED Provider: Jesus Manuel Gallardo Discharge Problem: SOB (shortness of breath), Hypertension Patient Disposition: Admitted As Inpatient Discharge Instructions Interventions: ED Discharge Assessment Last Done: 03/16/24 14:53
--- NOTE | 2024-03-16 10:42 | XRay Report ---
XR chest 1V portable CLINICAL HISTORY: Chest pain, nonspecific COMPARISON STUDY: 12/13/2023 FINDINGS: Stable CABG and bilateral shoulder prostheses. Stable small hiatal hernia. Stable cardiomeg lito without pulmonary vascular congestion. There is increased stranding opacity at the left lung base . No other consolidation or pleural effusion. No pneumothorax. IMPRESSION: Atelectasis versus early pneumonia left lung base. ACT 112: Negative or not required by law. Electronically signed by: Raoul Perry M.D. 03/16/2024 10:41 AM
[2024-03-16 11:05] LABS: Adenovirus PCR Not Detected (NotDetected); Bordetella parapertussis PCR Not Detected (NotDetected); Bordetella pertussis PCR Not Detected (NotDetected); Chlamydia pneumoniae PCR Not Detected (NotDetected); Coronavirus 229E PCR Not Detected (NotDetected); Coronavirus CoV-2 (COVID19)PCR Not Detected (NotDetected); Coronavirus HKU1 PCR Not Detected (NotDetected); Coronavirus NL63 PCR Not Detected (NotDetected); Coronavirus OC43PCR Not Detected (NotDetected); Human Metapneumovirus PCR Not Detected (NotDetected); Influenza A PCR Not Detected (NotDetected); Influenza B PCR Not Detected (NotDetected); Mycoplasma pneumoniae PCR Not Detected (NotDetected); Parainfluenza Virus 1 PCR Not Detected (NotDetected); Parainfluenza Virus 2 PCR Not Detected (NotDetected); Parainfluenza Virus 3 PCR Not Detected (NotDetected); Parainfluenza Virus 4 PCR Not Detected (NotDetected); Respiratory Syncytial VirusPCR Not Detected (NotDetected); Rhinovirus/Enterovirus PCR Not Detected (NotDetected)
[2024-03-16] MEDS: METOPROLOL SUCC 25MG EXT REL TAB PO STA (11:12)
[2024-03-16] MEDS: LOSARTAN POTASSIUM 25 MG TAB PO STA (11:12)
[2024-03-16] MEDS: OPTIRAY 320 125ml IV ONE (11:38)
--- NOTE | 2024-03-16 12:14 | CT Scan Report ---
CT angio chest PE protocol CT DOSE: 603.19 mGy.cm HISTORY: SOB, poss LLL infiltrate. TECHNIQUE: Multiple CTA images of the chest were obtained after the intravenous administration of 120 ml Optiray. Coronal and sagittal MIPS were obtained from the axial data set and were submitted for review. All measurements were obtained according to NASCET criteria. A dose lowering technique was u tilized adhering to the principles of ALARA. COMPARISON STUDY: 11/03/2023 FINDINGS: Stable moderate hiatal hernia. Stable cardiomegaly with prominence of the pulmonary vascula ture consistent with CHF. There are small bilateral pleural effusions which layer dependently and hav e a simple appearance. There is mild adjacent compressive atelectasis at bilateral lower lobes. There is mild septal thickening with a few scattered small groundglass pulmonary opacities consistent with mild pulmonary edema. No pneumothorax. No enlarged adenopathy. No pericardial effusion. There are co ronary artery and aortic calcifications. No pulmonary embolism. There are diffuse thoracic spine dege nerative changes. IMPRESSION: 1. No pulmonary embolism. 2. CHF with small bilateral pleural effusions and mild adjacent compressive atelectasis at the lower lung lobes. Mild pulmonary edema. No pneumonia seen. 3. Otherwise as described. ACT 112: Negative or not required by law. The above report was generated using voice recognition software. It may contain grammatical, syntax o r spelling errors. Electronically signed by: Raoul Perry M.D. 03/16/2024 12:12 PM
[2024-03-16] MEDS: FUROSEMIDE INJ 20 MG/2 ML VIAL IV ONE ×2 (12:51→16:04)
--- NOTE | 2024-03-16 12:53 | History & Physical Report ---
Date of Service March 16, 2024 Assessment & Plan (1) Acute on chronic diastolic CHF (congestive heart failure): Plan: Acute on HFpEF Bilateral pleural effusion secondary to above --Chest CTA:No pulmonary embolism. CHF with small bilateral pleural effusions and mild adjacent compressive atelectasis at the lower lung lobes. Mild pulmonary edema. No pneumonia seen. --BNP 626 Update ECHO Start IV Lasix 40mg daily Monitor Daily weight, I/Os, fluid restriction Oxygen support PRN Monitor renal function/electrolytes Cardiology consulted Hypertensive urgency Atypical chest pain likely due to above Initial troponin negative Check resting echo as above Trend troponins Increase losartan to 50 mg daily Increase metoprolol to succinate to 25 mg twice a day IV labetalol as needed NTG PRN Adjust blood pressure medications as needed Chronic anemia Hemoglobin at baseline No acute bleeding issues Monitor Hypothyroidism Levothyroxine Check TSH Chronic atrial fibrillation Continue metoprolol On Eliquis for anticoagulation CAD s/p CABG Continue home medications Other chronic conditions GERD Degenerative disc disease Anxiety H/O gastric ulcer Depression Continue home medications as able DVT Px: Eliquis CODE STATUS Full code Disposition Admit to PCU I personally interviewed and examined the patient at bedside. I personally reviewed blood work and imaging studies. I spent a total [id number] coordinating, documenting, and providing care for this patient. History of Present Illness Chief Complaint: Shortness of breath Primary Care Provider: Gilbert Calloway MD Patient is an 85-year-old female with history of hypothyroidism, diastolic heart failure, CKD stage III, CAD s/p CABG, hypertension, chronic atrial fibrillation, mild aortic stenosis, GERD, degenerative disc disease, anxiety, history of gastric ulcer, depression and other medical problems presents with history of worsening shortness of breath since 1 day duration. Patient states that she woke up from sleep this morning and found to be significantly short of breath while at rest and on exertion. She also states having some chest tightness which lasted for few minutes and currently resolved. She admits to missing her morning blood pressure medications. She was found to be in hypertensive urgency while in ED. Her shortness of breath is slightly improved after IV Lasix dose while in ED. She also admits to have some orthopnea but no PND or increased leg edema. Her weight seem to be increased by about 3 kg from last admission. Denies any history of palpitations, dizziness, cough, wheezing, fever, chills, chest trauma, headache, change in vision, nausea, vomiting, abdominal pain, diarrhea, dysuria, hematuria, recent change in medications. Allergies Allergy/AdvReac Type Severity Reaction Status Date / Time nitroglycerin AdvReac Severe "PROJECTILE Verified 01/29/23 15:15 VOMITTING" ergotamine AdvReac Intermediate vomiting Verified 01/29/23 15:15 Home Medications Medication Instructions Recorded Confirmed Type apixaban 5 mg tablet (Eliquis) 5 mg PO BID 12/13/23 03/16/24 History buspirone 10 mg tablet 10 mg PO BID 12/13/23 03/16/24 History calcitriol 0.25 mcg capsule 0.25 mcg PO UD 12/13/23 03/16/24 History gabapentin 300 mg capsule 300 mg PO TID 12/13/23 03/16/24 History metoprolol succinate 25 mg 37.5 mg PO DAILY 12/13/23 03/16/24 History tablet,extended release 24 hr pantoprazole 40 mg tablet,delayed 40 mg PO DAILY 12/13/23 03/16/24 History release rosuvastatin 10 mg tablet 10 mg PO DAILY 12/13/23 03/16/24 History levothyroxine 75 mcg tablet 75 mcg PO DAILYBB #30 tabs 12/20/23 03/16/24 Rx (Synthroid) losartan 25 mg tablet 25 mg PO DAILY 03/16/24 03/16/24 History Past Med/Surg History Problem List Hypertension (Acute) SOB (shortness of breath) (Acute) Ascending aorta dilation Acute alteration in mental status (Acute) Confusion Mobitz type 1 second degree AV block Costochondritis Elevated troponin (Acute) Weakness (Acute) SOB (shortness of breath) (Acute) History of coronary artery disease (Acute) Precordial chest pain (Acute) CAD (coronary artery disease) Hypophosphatemia Hypomagnesemia Acute on chronic diastolic CHF (congestive heart failure) Pneumonia (Acute) Sepsis due to pneumonia Hyperparathyroidism Hypercalcemia Anticoagulant long-term use Precordial chest pain (Acute) (HFpEF) heart failure with preserved ejection fraction Paroxysmal A-fib Chronic heart failure with preserved ejection fraction (HFpEF) Labile hypertension Sinus pause Chest pain, atypical Hypertension (Acute) Hypothyroidism KIM (acute kidney injury) (Acute) Acute on chronic heart failure with preserved ejection fraction (HFpEF) Greater trochanteric bursitis of right hip Anxiety (Chronic) Chronic osteoarthritis (Chronic) GERD (gastroesophageal reflux disease) (Chronic) DJD of left shoulder Primary osteoarthritis, right shoulder Diarrhea (Acute) Urinary incontinence (Chronic) Syncope and collapse Arthritis of right shoulder region (Acute) Depression with anxiety (Acute) Insomnia (Acute) Ambulatory dysfunction (Acute) Arthritis Depression Medical History Somatic dysfunction of sacroiliac joint History of blood transfusion 2012 2/2 GASTRIC ULCER History of gastric ulcer 2012 Spinal stenosis Gastric ulcer Atrial fibrillation with rapid ventricular response (11/2022) Fall Moderate mitral regurgitation Transient ischemic attack (TIA) ~2012>REASON FOR PLAVIX Osteoarthritis Chronic back pain Dyslipidemia Chronic kidney disease stage 3 Hypertension Surgical History 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 History of cardiac cath NO STENTS History of coronary artery bypass graft 1998 (1 VESSEL) S/P epidural steroid injection History of esophagogastroduodenoscopy (EGD) S/p reverse total shoulder arthroplasty RT/LEFT History of abdominoplasty PANNICULECTOMY History of colonoscopy History of arthroplasty of right hip History of arthroplasty of left hip History of hysterectomy with oophorectomy History of arthroplasty of left shoulder History of tonsillectomy and adenoidectomy H/O bilateral salpingo-oophorectomy with hyter Family History Father , age 74 Allergic reaction Mother , 80s CHF (congestive heart failure) Other No family history of adverse response to anesthesia Social History Smoking Status: Never smoker Second Hand Exposure: No; Do You Dip or Chew Tobacco: No; Hx Alcohol Use: No Hx Substance Use: No Preferred Language: Yakut Communication Ability: Effective Visual Impairment: No Limitations Data Analytics Developer Required: No Beliefs That Will Affect Care: None marital status: Single Current Living Situation: Alone Current Living Situation Comment: [facility] How many Children do You have: 0 Feels Safe at Home: Yes Assistive Devices: None Review of Systems Review of Systems: All systems reviewed & are unremarkable except as noted in Subjective Physical Exam Physical Exam: Physical Exam: Vitals signs as noted above General Appearance:Moderately built and nourished, no apparent distress, Elderly Head: normocephalic, Atraumatic Eyes: normal inspection, EOMI Neck: supple, Trachea midline Respiratory/Chest: Decreased breath sounds, minimal basal crackles, No accessory muscle use Cardiovascular: S1, S2, + murmur Abdomen/GI:Soft, Non tender, Bowel sounds present Extremities/Musculoskeletal:normal inspection, 1+ B/L LE edema Neurologic/Psych:AAOX3, grossly no focal neurological deficits Skin: normal color, warm Results & Data Results & Data Vital Signs (Past 12 Hours) Vital Signs Temp Pulse Resp BP Pulse Ox O2 Del Method 03/16/24 11:35 76 03/16/24 11:14 93 Room Air 03/16/24 11:03 84 20 206/117 H 95 Room Air 03/16/24 10:36 75 20 189/99 H 96 Room Air 03/16/24 09:37 37.0 C 77 19 202/108 H 99 Room Air Laboratory Results Short CBC 03/16/24 Range/Units 09:45 WBC 5.50 (4.8-10.8) K/ul Hgb 9.2 L (12.0-16.0) g/dl Hct 28.6 L (37.0-47.0) % Plt Count 173 (130-400) K/uL BMP 03/16/24 09:45 Sodium 138 Potassium 4.2 Chloride 108 H Carbon Dioxide 23 BUN 19 Creatinine 1.19 Glucose 93 Calcium 10.1 Liver Function 03/16/24 Range/Units 09:45 Total Bilirubin 0.9 (0.2-1.0) mg/dl AST 31 (13-39) U/L ALT 35 (7-52) U/L Alkaline Phosphatase 87 (34-104) U/L Albumin 3.9 (3.4-5.0) gm/dl Diagnostic Findings --Chest CTA:No pulmonary embolism. CHF with small bilateral pleural effusions and mild adjacent compressive atelectasis at the lower lung lobes. Mild pulmonary edema. No pneumonia seen. ECG Additional Comments: --EKG: Atrial fibrillation, nonspecific T wave abnormality in lateral leads.
--- NOTE | 2024-03-16 14:10 | Electrocardiogram Report ---
Test Reason : Blood Pressure : */* mmHG Vent. Rate : 80 BPM Atrial Rate : * BPM P-R Int : * ms QRS Dur : 76 ms QT Int : 356 ms P-R-T Axes : * 17 6 degrees QTcB Int : 410 ms Atrial fibrillation Septal infarct (cited on or before 13-Dec-2023) Abnormal ECG When compared with ECG of 14-Dec-2023 14:17, Atrial fibrillation has replaced Sinus rhythm Questionable change in initial forces of Septal leads Nonspecific T wave abnormality now evident in Lateral leads Confirmed by Shelby Gay ([id number]) on 03/16/2024 2:10:12 PM Referred By: Confirmed By: Shelby Gay
[2024-03-16] MEDS: LABETALOL HCL IV 5 MG/ML 20ML IV PRN (14:17)
[2024-03-16] MEDS: ONDANSETRON INJ 2 MG/ML 2 ML VIAL ONE (15:23)
[2024-03-16] MEDS ORDERED: ALBUTEROL 0.083% NEBU SOLN 3 ML VIAL NEB PRN (15:28)
[2024-03-16] MEDS ORDERED: NITROGLYCERIN SL 0.4 MG/TAB TAB SL PRN (15:28)
[2024-03-16] MEDS ORDERED: POLYETHYLENE (MIRALAX) 17 GM PACK PO PRN (15:28)
[2024-03-16] MEDS: MAGNESIUM SULFATE / D5W 1 GM/100 ML BAG IV ONE (16:04)
[2024-03-16] MEDS: GABAPENTIN 300 MG CAP PO SCH (16:05)
[2024-03-16] MEDS: LOSARTAN POTASSIUM 25 MG TAB PO ONE (16:13)
[2024-03-16] MEDS: busPIRone 5 MG TAB PO SCH (20:50)
[2024-03-16] MEDS: ACETAMINOPHEN W/CODEINE #3 1 TAB PO ONE (20:50)
[2024-03-16] MEDS: APIXABAN 5 MG TABLET PO SCH (20:50)
[2024-03-16] MEDS: METOPROLOL SUCC 25MG EXT REL TAB PO SCH (20:51)
[2024-03-16] MEDS: POTASSIUM CHLORIDE CRTAB 20 MEQ TABCR PO STA (20:51)
[2024-03-16] MEDS: MELATONIN 3 MG TAB PO PRN (21:20)
[2024-03-16] MEDS: ACETAMINOPHEN 1,000 MG/100 ML VIAL IV STA (23:07)
[2024-03-16 23:12] LABS: Potassium 3.8 mmol/L (3.5-5.1)
[2024-03-17 00:14] LABS: Troponin I High Sensitivity 16.4 pg/ml (0-14)
[2024-03-17] MEDS: MELATONIN 3 MG TAB PO STA (01:08)
[2024-03-17] MEDS: LEVOTHYROXINE SODIUM 75 MCG TABLET PO SCH (06:03)
[2024-03-17 07:09] LABS: Hematocrit (blood only) 28.4 % (37.0-47.0); Hemoglobin 9.2 g/dl (12.0-16.0); Mean Corpuscular Hemoglobin 27.1 pg (25.0-34.0); Mean Corpuscular Hgb Conc 32.4 g/dL (32.0-36.0); Mean Corpuscular Volume 83.8 fL (80.0-100.0); Mean Platelet Volume 10.4 fL (9.4-12.4); Platelet Count 184 K/uL (130-400); RDW Coefficient of Variation 15.6 % (11.5-14.5); Red Blood Count 3.39 M/uL (4.20-5.40)
[2024-03-17 07:29] LABS: BUN Creatinine Ratio 11.9 (10-20); Calcium 9.8 mg/dl (8.6-10.3); Creatinine Clr Calc Pharmacy 20.7 ml/min; Magnesium 2.1 mg/dl (1.7-2.4); Potassium 4.2 mmol/L (3.5-5.1)
[2024-03-17 07:44] LABS: Thyroid Stimulating Hormone 2.207 uIu/ml (0.300-4.500)
[2024-03-17] MEDS: CALCITRIOL 0.25 MCG CAPSULE PO SCH (08:15)
[2024-03-17] MEDS: ROSUVASTATIN CALCIUM 10 MG TAB PO SCH (08:16)
[2024-03-17] MEDS: PANTOprazole 40 MG TAB PO SCH (08:16)
[2024-03-17] MEDS: POTASSIUM CHLORIDE CRTAB 20 MEQ TABCR PO STA (08:18)
--- NOTE | 2024-03-17 08:22 | Hospitalist Progress Note ---
Date of Service March 17, 2024 Assessment & Plan (1) Acute on chronic diastolic CHF (congestive heart failure): Plan: Ms. Howard is an 85-year-old female with past medical history significant for hypothyroidism, history of hypercalcemia, hiatal hernia, thoracic aortic ectasia, chronic diastolic CHF, CAD status post CABG, hypertension, chronic atrial fibrillation, mild aortic stenosis, GERD, CKD stage III osteoarthritis depression, insomnia, mixed incontinence urge and stress currently living at personal-long term who is admitted for acute on chronic heart failure with preserved EF Biofire negative #Acute on chronic HFpEF #Bilateral pleural effusion secondary to above --Chest CTA:No pulmonary embolism. CHF with small bilateral pleural effusions and mild adjacent compressive atelectasis at the lower lung lobes. Mild pulmonary edema. No pneumonia seen. --BNP 626 Update ECHO Started IV Lasix 40mg daily, continue for now Monitor Daily weight, I/Os, fluid restriction Oxygen support PRN Monitor renal function/electrolytes Cardiology consulted Reviewed recommendations: continue IV lasix until both Cr and BUN elevated #Atypical chest pain #CAD s/ CABG #Hypertensive emergency SBP 205, improvement with home meds resumed Increase losartan to 50 mg daily Increase metoprolol to succinate to 25 mg twice a day IV labetalol as needed NTG PRN Adjust blood pressure medications as needed #KIM on CKD III likely iso diuertics and HTN baseline around 1.1, now up to 1.77 Recommended continuation until MIRIAM also uptrends #Elevated tropnin likely demand iso volume overload slight increase, repeat and monitor on tele until downtrend #Chronic normocytic anemia Hemoglobin at baseline No acute bleeding issues Monitor #aortic stenosis #Dilated ascending aorta ECHO as above #Hypothyroidism continue Levothyroxine TSH 2.2 03/16 #Chronic atrial fibrillation Continue metoprolol On Eliquis for anticoagulation renally dosed eliquis Other chronic conditions GERD Degenerative disc disease Anxiety H/O gastric ulcer Depression Continue home medications as able DVT Px: Eliquis CODE STATUS Full code Disposition contingent on PT/OT Admission and Anticipated Discharge Date Admission Date: March 16, 2024 Subjective Reports feeling much improved from day prior Endorses some SOB returning from bathroom, but otherwise more "clear" than day before denies chest pain, palpitations or other acute concerns Physical Exam Constitutional: WD/WN, vitals as above Respiratory: decreased bibasilar breath sound, but no distress noted Cardiovascular: irregularly irregular +JAN Gastrointestinal (Abdomen): normal bowel sounds, soft, nontender, no hepatosplenomegaly Results & Data Results & Data Vital Signs (Past 12 Hours) Vital Signs Temp Pulse Pulse Resp BP Pulse Ox O2 Del Method 03/17/24 06:12 37.0 C 65 18 117/71 96 Room Air 03/16/24 23:17 36.9 C 69 18 96/57 L 93 Room Air 03/16/24 21:54 70 Laboratory Results Short CBC 03/16/24 03/17/24 Range/Units 09:45 06:07 WBC 5.50 5.50 (4.8-10.8) K/ul Hgb 9.2 L 9.2 L (12.0-16.0) g/dl Hct 28.6 L 28.4 L (37.0-47.0) % Plt Count 173 184 (130-400) K/uL BMP 03/16/24 03/16/24 03/17/24 09:45 22:42 06:07 Sodium 138 137 Potassium 4.2 3.8 4.2 Chloride 108 H 105 Carbon Dioxide 23 26 BUN 19 21 Creatinine 1.19 1.77 H D Glucose 93 93 Calcium 10.1 9.8 Liver Function 03/16/24 Range/Units 09:45 Total Bilirubin 0.9 (0.2-1.0) mg/dl AST 31 (13-39) U/L ALT 35 (7-52) U/L Alkaline Phosphatase 87 (34-104) U/L Albumin 3.9 (3.4-5.0) gm/dl Medications Administered Home Medications Medication Instructions Recorded Confirmed Last Taken apixaban 5 mg tablet (Eliquis) 5 mg PO BID 12/13/23 03/16/24 Unknown buspirone 10 mg tablet 10 mg PO BID 12/13/23 03/16/24 Unknown calcitriol 0.25 mcg capsule 0.25 mcg PO UD 12/13/23 03/16/24 Unknown gabapentin 300 mg capsule 300 mg PO TID 12/13/23 03/16/24 Unknown metoprolol succinate 25 mg 37.5 mg PO DAILY 12/13/23 03/16/24 Unknown tablet,extended release 24 hr pantoprazole 40 mg tablet,delayed 40 mg PO DAILY 12/13/23 03/16/24 Unknown release rosuvastatin 10 mg tablet 10 mg PO DAILY 12/13/23 03/16/24 Unknown levothyroxine 75 mcg tablet 75 mcg PO DAILYBB #30 tabs 12/20/23 03/16/24 Unknown (Synthroid) losartan 25 mg tablet 25 mg PO DAILY 03/16/24 03/16/24 Unknown Active Medications Generic Name Dose Route Start Last Admin Trade Name Donny PRN Reason Stop Dose Admin Apixaban 5 mg 03/16/24 21:00 03/16/24 20:50 Apixaban 5 Mg Tablet PO 04/15/24 20:59 5 mg BID YAN Administration Buspirone HCl 10 mg 03/16/24 21:00 03/16/24 20:50 Buspirone 5 Mg Tab PO 04/15/24 20:59 10 mg BID YAN Administration Gabapentin 300 mg 03/16/24 15:30 03/16/24 20:51 Gabapentin 300 Mg Cap PO 04/15/24 15:29 300 mg TID YAN Administration Labetalol HCl 10 mg 03/16/24 12:55 03/16/24 14:17 Labetalol Hcl Iv 5 Mg/Ml 20ml IV 04/15/24 12:54 10 mg Q6H PRN Administration Hypertension SBP>180orDBP>100 Levothyroxine Sodium 75 mcg 03/17/24 06:30 03/17/24 06:03 Levothyroxine Sodium 75 Mcg Tablet PO 04/16/24 06:29 75 mcg DAILYBB YAN Administration Metoprolol Succinate 25 mg 03/16/24 21:00 03/16/24 20:51 Metoprolol Succ 25mg Ext Rel Tab PO 04/15/24 20:59 25 mg BID YAN Administration
[2024-03-17] MEDS ORDERED: LOSARTAN POTASSIUM 50 MG TAB PO SCH (09:00)
[2024-03-17 09:04] LABS: Troponin I High Sensitivity 16.7 pg/ml (0-14)
--- NOTE | 2024-03-17 09:43 | XCELERA ---
[id number]\[id number]
--- NOTE | 2024-03-17 10:42 | Cardiology Consultation ---
Date of Consultation March 17, 2024 Assessment & Plan (1) Acute on chronic diastolic CHF (congestive heart failure): -The patient is responding well to intravenous diuretics. -Would continue until BUN and creatinine increase. (2) CAD (coronary artery disease): -s/p SANDOVAL to the LAD, 1998. -Continue medical management. (3) Paroxysmal A-fib: -Ventricular response in the 40s and 50s. -Would reduce metoprolol succinate back to 37.5 mg daily. -Continue with low-dose Eliquis. (4) Hypertension: -Adequate control on current regimen. History of Present Illness Attending Physician: Ann Marie Ba MD History of Present Illness Mrs. Howard is an 85-year-old female admitted yesterday in decompensated diastolic CHF. This consultation was ordered to assist in her cardiac management. Of note, she typically follows with Dr. Adams in the outpatient setting. The patient was in her usual state of health until the morning of presentation. She awoke from sleep and was short of breath at rest. Her shortness of breath became worse with exertion. She did experience a brief episode of substernal chest tightness. No nausea, vomiting, or diaphoresis. She presented to the emergency room for further care. On arrival here, the patient was found to be in acute on chronic diastolic CHF. This was confirmed by chest x-ray and CT scan of the chest. The patient has been compliant with a salt restricted diet. She does not drink fluids to excess. The patient has diuresed well. She is now feeling back to her usual self. She does carry history of coronary artery disease having undergone a single vessel bypass back in 1998. This was an SANDOVAL to the LAD. Past medical and surgical history 1. [id number], SANDOVAL to the LAD 2. Hypertension 3. Hypercholesterolemia 4. Paroxysmal atrial fibrillation 5. Chronic diastolic CHF 6. Mild aortic stenosis 7. Dilated acing thoracic aorta 8. Mobitz type I second-degree AV block 9. GERD 10. Peptic ulcer disease 11. Chronic renal failure 12. Hypothyroidism 13. Spinal stenosis 14. Anxiety/depression 15. Insomnia 16. Bilateral total shoulder replacements 17. Bilateral total hip replacements 18. Bilateral salpingo-oophorectomy Social history , lives at [facility] No tobacco Occasional alcohol Family history Noncontributory Review of systems A 10 point review of system was undertaken and negative except that described above. Allergies Allergy/AdvReac Type Severity Reaction Status Date / Time nitroglycerin AdvReac Severe "PROJECTILE Verified 01/29/23 15:15 VOMITTING" ergotamine AdvReac Intermediate vomiting Verified 01/29/23 15:15 Home Medications Medication Instructions Recorded Confirmed Type apixaban 5 mg tablet (Eliquis) 5 mg PO BID 12/13/23 03/16/24 History buspirone 10 mg tablet 10 mg PO BID 12/13/23 03/16/24 History calcitriol 0.25 mcg capsule 0.25 mcg PO UD 12/13/23 03/16/24 History gabapentin 300 mg capsule 300 mg PO TID 12/13/23 03/16/24 History metoprolol succinate 25 mg 37.5 mg PO DAILY 12/13/23 03/16/24 History tablet,extended release 24 hr pantoprazole 40 mg tablet,delayed 40 mg PO DAILY 12/13/23 03/16/24 History release rosuvastatin 10 mg tablet 10 mg PO DAILY 12/13/23 03/16/24 History levothyroxine 75 mcg tablet 75 mcg PO DAILYBB #30 tabs 12/20/23 03/16/24 Rx (Synthroid) losartan 25 mg tablet 25 mg PO DAILY 03/16/24 03/16/24 History Patient History Medical History Somatic dysfunction of sacroiliac joint History of blood transfusion 2012 2/2 GASTRIC ULCER History of gastric ulcer 2012 Spinal stenosis Gastric ulcer Atrial fibrillation with rapid ventricular response (11/2022) Fall Moderate mitral regurgitation Transient ischemic attack (TIA) ~2012>REASON FOR PLAVIX Osteoarthritis Chronic back pain Dyslipidemia Chronic kidney disease stage 3 Hypertension Surgical History 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 History of cardiac cath NO STENTS History of coronary artery bypass graft 1998 (1 VESSEL) S/P epidural steroid injection History of esophagogastroduodenoscopy (EGD) S/p reverse total shoulder arthroplasty RT/LEFT History of abdominoplasty PANNICULECTOMY History of colonoscopy History of arthroplasty of right hip History of arthroplasty of left hip History of hysterectomy with oophorectomy History of arthroplasty of left shoulder History of tonsillectomy and adenoidectomy H/O bilateral salpingo-oophorectomy with hyter Family History Father , age 74 Allergic reaction Mother , 80s CHF (congestive heart failure) Other No family history of adverse response to anesthesia Social History Smoking Status: Never smoker Second Hand Exposure: No; Do You Dip or Chew Tobacco: No; Hx Alcohol Use: No Hx Substance Use: No Preferred Language: Greek Communication Ability: Effective Visual Impairment: No Limitations Laborer Prestressed Concrete Required: No Beliefs That Will Affect Care: None marital status: Single Current Living Situation: Alone Current Living Situation Comment: [facility] How many Children do You have: 0 Feels Safe at Home: Yes Safety Concerns: Feels Safe At This Time Assistive Devices: None Physical Exam Physical Exam: In general is well-developed well-nourished white female in no acute distress. HEENT exam is negative. Neck is supple with mildly delayed and prolonged carotid upstrokes. No carotid bruits or transmitted murmurs. Jugular venous pressure is flat at 90 degrees. No thyromegaly. Cardiovascular exam reveals an irregular regular rhythm with distant heart sounds. A 2/6 crescendo decrescendo systolic murmur is heard loudest at the base. S2 is audible at the apex. Lungs noted decreased breath sounds at the bases but no rales, rhonchi, or wheezes. Abdomen is benign without bruits. Extremities reveal intact radial artery pulses bilaterally. There is no peripheral edema. Results & Data Vital Signs (Past 12 Hours) Vital Signs Temp Pulse Resp BP BP Pulse Ox O2 Del Method 03/17/24 08:00 77 18 148/68 H 98 Room Air 03/17/24 06:12 37.0 C 65 18 117/71 96 Room Air 03/16/24 23:17 36.9 C 69 18 96/57 L 93 Room Air Laboratory Results CBC notes hemoglobin of 9.2, medic at 28.4, white count 5.5, and a platelet count of 184,000. Electrolytes noted sodium 137, potassium 4.2, chloride 105, bicarb 26, BUN 21, creatinine 1.77, and a glucose of 93. Magnesium level is 2.1. Initial high-sensitivity troponin was 13.6 with follow-up values of 14, 16.4, and 16.7. TSH is normal at 2.2. Diagnostic Findings Echocardiogram notes normal left ventricular systolic function with an ejection fraction of 65 to 70%. There is mild LVH along with mild aortic stenosis. There is mild mitral gestation and mild to moderate tricuspid regurgitation. EKG notes atrial fibrillation with low voltage throughout. There is an old anteroseptal MD pattern. Chest x-ray notes cardiomegaly and diffuse interstitial edema. Bilateral pleural effusions. CT scan of the chest notes pulmonary edema and bilateral pleural effusions. PG Care Time/CCT Total # of Minutes Spent Total Time Spent with Patient: Total time spent is greater than 50% in coordination of care (as documented) at patient's floor/unit and/or counseling patient: Coding Level of Care Code 47151 INT INP/OBS CARE 3/75MIN Diagnoses Acute on chronic diastolic CHF (congestive heart failure) I50.33 Coronary artery disease involving [place] coronary artery of [place] heart without angina pectoris I25.10 Coronary Disease-Associated Artery/Lesion type: [place] artery [place] vs. transplanted heart: [place] heart Associated angina: without angina Paroxysmal A-fib I48.0 Hypertension I10 (2) CAD (coronary artery disease) Coronary Disease-Associated Artery/Lesion type: [place] artery [place] vs. transplanted heart: [place] heart Associated angina: without angina Qualified Code(s): I25.10 - Atherosclerotic heart disease of [place] coronary artery without angina pectoris
--- NOTE | 2024-03-17 11:48 | Electrocardiogram Report ---
Test Reason : Blood Pressure : */* mmHG Vent. Rate : 61 BPM Atrial Rate : * BPM P-R Int : * ms QRS Dur : 74 ms QT Int : 434 ms P-R-T Axes : * 15 -10 degrees QTcB Int : 436 ms Atrial fibrillation Low voltage QRS Septal infarct (cited on or before 13-Dec-2023) Abnormal ECG When compared with ECG of 16-Mar-2024 09:39, Nonspecific T wave abnormality no longer evident in Lateral leads Confirmed by Delmar Askew ([id number]) on 03/17/2024 11:47:43 AM Referred By: REFERRED SELF Confirmed By: Delmar Askew
[2024-03-17] MEDS: FUROSEMIDE 40 MG/4 ML VIAL IV SCH (14:35)
[2024-03-17] MEDS: ACETAMINOPHEN 325 MG TAB PO PRN (17:02)
[2024-03-17] MEDS: APIXABAN 2.5 MG TAB PO SCH (20:36)
[2024-03-17] MEDS: MELATONIN 3 MG TAB PO PRN (21:45)
[2024-03-18] MEDS ORDERED: ATROPINE SULFATE 0.1 MG/ML 10ML SYR IV PRN (00:40)
--- NOTE | 2024-03-18 03:54 | Communication Note ---
Date of Service: March 18, 2024 Patient bradycardic overnight. Lowest heart rate of 30s as per RN. Patient asymptomatic as per RN. Last dose Toprol XL 25 mg 03/17 815AM AP Asymptomatic bradycardia Hold beta-brendan for now until patient reevaluated by Cardiology.
[2024-03-18 06:24] LABS: Hematocrit (blood only) 28.3 % (37.0-47.0); Mean Corpuscular Hemoglobin 26.8 pg (25.0-34.0); Mean Corpuscular Hgb Conc 31.8 g/dL (32.0-36.0); Mean Corpuscular Volume 84.2 fL (80.0-100.0); Mean Platelet Volume 10.1 fL (9.4-12.4); Platelet Count 184 K/uL (130-400); RDW Coefficient of Variation 15.6 % (11.5-14.5); RDW Standard Deviation 46.6 fL (36.4-46.3); Red Blood Count 3.36 M/uL (4.20-5.40); White Blood Count 5.39 K/ul (4.8-10.8)
[2024-03-18 06:38] LABS: BUN Creatinine Ratio 18.4 (10-20); Calcium 9.4 mg/dl (8.6-10.3); Creatinine Clr Calc Pharmacy 17.8 ml/min; Magnesium 2.1 mg/dl (1.7-2.4); Phosphorus 4.6 mg/dl (2.5-4.9); Potassium 4.4 mmol/L (3.5-5.1)
[2024-03-18] MEDS ORDERED: METOPROLOL SUCC 25MG EXT REL TAB PO SCH (09:00)
--- NOTE | 2024-03-18 12:49 | Electrocardiogram Report ---
Test Reason : Blood Pressure : */* mmHG Vent. Rate : 50 BPM Atrial Rate : * BPM P-R Int : * ms QRS Dur : 74 ms QT Int : 434 ms P-R-T Axes : * 1 -3 degrees QTcB Int : 395 ms Atrial fibrillation with slow ventricular response Cannot rule out Anterior infarct (cited on or before 13-Dec-2023) Abnormal ECG When compared with ECG of 17-Mar-2024 06:01, No significant change was found Confirmed by Delmar Askew ([id number]) on 03/18/2024 12:48:49 PM Referred By: REFERRED SELF Confirmed By: Delmar Askew
--- NOTE | 2024-03-18 12:50 | Electrocardiogram Report ---
Test Reason : Blood Pressure : */* mmHG Vent. Rate : 61 BPM Atrial Rate : * BPM P-R Int : * ms QRS Dur : 82 ms QT Int : 424 ms P-R-T Axes : * 14 12 degrees QTcB Int : 426 ms Atrial fibrillation Anteroseptal infarct (cited on or before 13-Dec-2023) Abnormal ECG When compared with ECG of 18-Mar-2024 00:50, (unconfirmed) Questionable change in initial forces of Septal leads Confirmed by Delmar Askew ([id number]) on 03/18/2024 12:49:46 PM Referred By: REFERRED SELF Confirmed By: Delmar Aksew
--- NOTE | 2024-03-18 13:00 | Hospitalist Progress Note ---
Date of Service March 18, 2024 Assessment & Plan (1) Acute on chronic diastolic CHF (congestive heart failure): Plan: Ms. Howard is an 85-year-old female with past medical history significant for hypothyroidism, history of hypercalcemia, hiatal hernia, thoracic aortic ectasia, chronic diastolic CHF, CAD status post CABG, hypertension, chronic atrial fibrillation, mild aortic stenosis, GERD, CKD stage III osteoarthritis depression, insomnia, mixed incontinence urge and stress currently living at personal-nursing home who is admitted for acute on chronic heart failure with preserved EF #Asymptomatic bradycardia #Chronic atrial fibrillation Held metoprolol On Eliquis for anticoagulation renally dosed eliquis Monitor on tele Cardiology following #KIM on CKD III likely iso diuertics and HTN held losartan baseline around 1.1, now up to 2.07 with BUN 38 Will hold on IV today #Acute on chronic HFpEF #Bilateral pleural effusion secondary to above --Chest CTA:No pulmonary embolism. CHF with small bilateral pleural effusions and mild adjacent compressive atelectasis at the lower lung lobes. Mild pulmonary edema. No pneumonia seen. --BNP 626 Update ECHO Started IV Lasix 40mg daily, hold Monitor Daily weight, I/Os, fluid restriction Oxygen support PRN Monitor renal function/electrolytes Cardiology consulted Holding diuersis 2/2 BUN/Cr increase Await further cardiology recommendations #Atypical chest pain #CAD s/ CABG #Hypertensive emergency SBP 205, improvement with home meds resumed Losartan held Held metoprolol to succinate to 25 mg twice a day IV labetalol as needed NTG PRN Adjust blood pressure medications as needed #Elevated tropnin likely demand iso volume overload resolved slight increase, repeat and monitor on tele until downtrend #Chronic normocytic anemia Hemoglobin at baseline No acute bleeding issues Monitor #aortic stenosis #Dilated ascending aorta ECHO as above #Hypothyroidism continue Levothyroxine TSH 2.2 03/16 Other chronic conditions GERD Degenerative disc disease Anxiety H/O gastric ulcer Depression Continue home medications as able DVT Px: Eliquis CODE STATUS Full code Disposition PT/OT home health services Dispo based upon renal function stabilizing Admission and Anticipated Discharge Date Admission Date: March 16, 2024 Subjective Episodes of bradycardia overnight to 30s on tele asymptomatic per patient and per hog stomach preparer documentation Patient states she just feels "worked" up but cannot quite explain She denies light headedness, chest pain or palpitations She was resting comfortably when examined, but seemed notably anxious when awakening the patient Physical Exam Constitutional: napping on initial arrival to room, awakened easily, then quickly became anxious Respiratory: normal respiratory effort, lungs clear to auscultation Cardiovascular: irregularly irregular JAN+ Results & Data Results & Data Vital Signs (Past 12 Hours) Vital Signs Temp Pulse Resp BP Pulse Ox O2 Del Method 03/18/24 12:06 36.9 C 66 16 104/54 L 95 Room Air 03/18/24 08:53 Room Air 03/18/24 07:26 36.9 C 68 16 103/54 L 91 Room Air 03/18/24 03:36 36.6 C 51 L 18 127/82 94 Room Air Laboratory Results Short CBC 03/18/24 Range/Units 05:25 WBC 5.39 (4.8-10.8) K/ul Hgb 9.0 L (12.0-16.0) g/dl Hct 28.3 L (37.0-47.0) % Plt Count 184 (130-400) K/uL BMP 03/18/24 05:25 Sodium 138 Potassium 4.4 Chloride 105 Carbon Dioxide 27 BUN 38 H Creatinine 2.07 H D Glucose 96 Calcium 9.4 Medications Administered Home Medications Medication Instructions Recorded Confirmed Last Taken apixaban 5 mg tablet (Eliquis) 5 mg PO BID 12/13/23 03/16/24 Unknown buspirone 10 mg tablet 10 mg PO BID 12/13/23 03/16/24 Unknown calcitriol 0.25 mcg capsule 0.25 mcg PO UD 12/13/23 03/16/24 Unknown gabapentin 300 mg capsule 300 mg PO TID 12/13/23 03/16/24 Unknown metoprolol succinate 25 mg 37.5 mg PO DAILY 12/13/23 03/16/24 Unknown tablet,extended release 24 hr pantoprazole 40 mg tablet,delayed 40 mg PO DAILY 12/13/23 03/16/24 Unknown release rosuvastatin 10 mg tablet 10 mg PO DAILY 12/13/23 03/16/24 Unknown levothyroxine 75 mcg tablet 75 mcg PO DAILYBB #30 tabs 12/20/23 03/16/24 Unknown (Synthroid) losartan 25 mg tablet 25 mg PO DAILY 03/16/24 03/16/24 Unknown Active Medications Generic Name Dose Route Start Last Admin Trade Name Freq PRN Reason Stop Dose Admin Acetaminophen 650 mg 03/16/24 15:28 03/17/24 22:53 Acetaminophen 325 Mg Tab PO 04/15/24 15:27 650 mg Q4H PRN Administration Pain or Fever Apixaban 2.5 mg 03/17/24 21:00 03/18/24 08:05 Apixaban 2.5 Mg Tab PO 04/16/24 20:59 2.5 mg BID YAN Administration Calcitriol 0.25 mcg 03/17/24 09:00 03/17/24 08:15 Calcitriol 0.25 Mcg Capsule PO 04/16/24 08:59 0.25 mcg [id number] YAN Administration Gabapentin 300 mg 03/16/24 15:30 03/18/24 08:06 Gabapentin 300 Mg Cap PO 04/15/24 15:29 300 mg TID YAN Administration Levothyroxine Sodium 75 mcg 03/17/24 06:30 03/18/24 05:30 Levothyroxine Sodium 75 Mcg Tablet PO 04/16/24 06:29 75 mcg DAILYBB YAN Administration Melatonin 6 mg 03/17/24 00:55 03/17/24 21:45 Melatonin 3 Mg Tab PO 04/15/24 18:30 6 mg HS PRN Administration Sleep Pantoprazole Sodium 40 mg 03/17/24 09:00 03/18/24 08:05 Pantoprazole 40 Mg Tab PO 04/16/24 08:59 40 mg DAILY YAN Administration Rosuvastatin Calcium 10 mg 03/17/24 09:00 03/18/24 08:06 Rosuvastatin Calcium 10 Mg Tab PO 04/16/24 08:59 10 mg DAILY YAN Administration
[2024-03-18] MEDS: busPIRone 5 MG TAB PO SCH (13:14)
[2024-03-18 13:46] LABS: BUN Creatinine Ratio 17.1 (10-20); Calcium 9.6 mg/dl (8.6-10.3); Creatinine Clr Calc Pharmacy 17.5 ml/min; Potassium 4.7 mmol/L (3.5-5.1)
[2024-03-18 15:35] LABS: Appearance Urine Clear (Clear); Bacteria Urine Automated None Seen (None Seen); Bilirubin Urine Negative (Negative); Blood Urine 1+ (Negative); Cast Urine Automated 0-2 /lpf (0-2); Color Urine Yellow; Epithelial Cell Urine Auto 0-2 /hpf (0-2); Glucose Urine UA Negative (Negative); Ketones Urine Negative (Negative); Leukocyte Esterase Urine Negative (Negative); Nitrite Urine Negative (Negative); Protein Urine Negative (Negative); Specific Gravity Urine 1.021 (1.000-1.030); Urobilinogen Urine Negative (Negative); WBC Urine Automated 0-5 /hpf (0-5)
--- NOTE | 2024-03-18 22:10 | Communication Note ---
Date of Service: March 18, 2024 Patient complaining of persistent right calf pain. Patient more confused than usual as per RN. AP Worsening encephalopathy, worsening kidney dysfunction, gabapentin and buspirone contributory Persistent right calf pain Eliquis Rx Monitor creatinine response to IV albumin Hold gabapentin and buspirone for now Hold Eliquis for now CT head Re: Encephalopathy in the setting of no Rx CT right calf CT head Mild cerebral atrophy and periventricular white matter low density consistent with chronic small vessel disease and/or senescent changes, similar to previous. No acute large vessel infarct or intracranial hemorrhage is seen. CT RLE 1. Mild narrowing and osteophytosis of the medial, lateral, and patellofemoral joint spaces of the knee as well as mild chondral calcification consistent with osteoarthritis and/or CPPD. 2. Severe calcification of the arterial structures in the lower leg and calf. This is a noncontrast study but the calcification fills most of the lumen of the posterior tibial artery. Some degree of arterial insufficiency is possible. AP RLE pain PAD on CT RLE arterial Dopplers May need Vascular Surgery consultation Resume Deana
[2024-03-18] MEDS: ACETAMINOPHEN W/CODEINE #3 1 TAB PO ONE (22:42)
[2024-03-18] MEDS: ALBUMIN 25% 25 GM/100 ML VIAL IV ONE (22:47)
--- NOTE | 2024-03-18 23:43 | CT Scan Report ---
Exam(s): CT HEAD Without Contrast EXAM: CT Head Without Intravenous Contrast CLINICAL HISTORY: Reason for exam: ams, Eliquis. TECHNIQUE: Axial computed tomography images of the head/brain without intravenous contrast. CTDI is 35.51 mGy and DLP is 624.41 mGy-cm. Automated exposure control was utilized for the study. A dose lowering technique was utilized adhering to the principles of ALARA. COMPARISON: December 13, 2023 FINDINGS: Brain: Mild cerebral atrophy and periventricular white matter low density consistent with chronic small vessel disease and/or senescent changes, similar to previous. No acute large vessel infarct or intracranial hemorrhage is seen. Ventricles: Unremarkable. No ventriculomegaly. Bones/joints: Unremarkable. No acute fracture. Soft tissues: Unremarkable. Sinuses: Unremarkable as visualized. No acute sinusitis. Mastoid air cells: Unremarkable as visualized. No mastoid effusion. IMPRESSION: Mild cerebral atrophy and periventricular white matter low density consistent with chronic small vessel disease and/or senescent changes, similar to previous. No acute large vessel infarct or intracranial hemorrhage is seen. Electronically signed by: Manohar Mckeon MD 03/18/24 23:42 PM
--- NOTE | 2024-03-18 23:47 | CT Scan Report ---
Exam(s): CT EXTREMITY RIGHT LOWER Without Contrast EXAM: CT Right Lower Extremity Without Intravenous Contrast CLINICAL HISTORY: Reason for exam: pain, Eliquis. TECHNIQUE: Axial computed tomography images of the right lower extremity without intravenous contrast. CTDI is 28.7 mGy and DLP is 1434 mGy-cm. Automated exposure control was utilized for the study. A dose lowering technique was utilized adhering to the principles of ALARA. COMPARISON: No relevant prior studies available. FINDINGS: Bones/joints: Mild narrowing and osteophytosis of the medial, lateral, and patellofemoral joint spaces of the knee as well as mild chondral calcification consistent with osteoarthritis and/or CPPD. Mild degenerative changes in the foot and ankle. No fracture or dislocation is seen. Soft tissues: Unremarkable. No subcutaneous emphysema or foreign body. Vasculature: Severe calcification of the arterial structures in the lower leg and calf. Other findings: No abscess or abnormal fluid collection is seen. IMPRESSION: 1. Mild narrowing and osteophytosis of the medial, lateral, and patellofemoral joint spaces of the knee as well as mild chondral calcification consistent with osteoarthritis and/or CPPD. 2. Severe calcification of the arterial structures in the lower leg and calf. This is a noncontrast study but the calcification fills most of the lumen of the posterior tibial artery. Some degree of arterial insufficiency is possible. Electronically signed by: Manohar Mckeon MD 03/18/24 23:46 PM
--- NOTE | 2024-03-19 03:00 | Ultrasound Report ---
EXAM: US arterial duplex LE RT CLINICAL HISTORY: Right LE pain. TECHNIQUE: Ultrasound examination of the right lower extremity arteries with ankle brachial indices was performed in real time and duplex. One or more of the following were performed- spectral analysis, resistive index, waveform analysis, and pulsed Doppler. COMPARISON: None. FINDINGS: Vessel Flow Pattern Right Peak Velocity Right (cm/sec) Common Femoral Artery (CHEESE TESTER) Triphasic 100 Deep Femoral Artery (DPA) Triphasic 70 Superficial Femoral Artery (SFA) proximal mid distal Triphasic Triphasic Triphasic 97 128 93 Popliteal Artery (POP A) Biphasic 98 Anterior Tibial Artery proximal mid distal Biphasic Biphasic Biphasic 128 97 86 Posterior Tibial Artery (PROJECT SAFETY MANAGER), proximal mid distal Biphasic Biphasic Biphasic 64 44 40 Peroneal, proximal mid distal Biphasic Biphasic Biphasic 56 33 60 Dorsalis Pedis Artery (DPA) Biphasic 102 Ankle-brachial indices are 1.01 and 0.78 on the right and left, respectively. Denoting possible peripheral arterial disease on the left side There are mild to moderate atherosclerotic changes affecting the right lower limb artery, with no significant focal stenosis noted. The peak systolic velocities are within normal limit. No evidence of significant stenosis (50%) or hemodynamically significant lesions. Normal triphasic/biphasic waveform pattern observed throughout the evaluated segments. IMPRESSION: 1. There are mild to moderate atherosclerotic changes affecting the right lower limb artery, with no significant focal stenosis noted. 2. No evidence of significant stenosis (50%) or hemodynamically significant lesions. 3. Ankle brachial indices are1.01 and 0.78 on the right and left, respectively. Denoting possible peripheral arterial disease on the left side. Electronically signed by Caron Ferguson 03-19-2024 02:59 AM
[2024-03-19] MEDS: traMADol HCL 50 MG TABLET PO STA ×2 (03:12→23:33)
[2024-03-19 06:25] LABS: Magnesium 2.2 mg/dl (1.7-2.4); Phosphorus 3.8 mg/dl (2.5-4.9)
[2024-03-19 06:36] LABS: Hematocrit (blood only) 26.9 % (37.0-47.0); Hemoglobin 8.6 g/dl (12.0-16.0); Mean Corpuscular Volume 84.3 fL (80.0-100.0); Mean Platelet Volume 10.8 fL (9.4-12.4); Platelet Count 173 K/uL (130-400); RDW Coefficient of Variation 15.4 % (11.5-14.5); RDW Standard Deviation 46.9 fL (36.4-46.3); Red Blood Count 3.19 M/uL (4.20-5.40); White Blood Count 5.71 K/ul (4.8-10.8)
[2024-03-19 09:03] LABS: Ferritin 22.7 ng/ml (8-388)
--- NOTE | 2024-03-19 09:19 | Ultrasound Report ---
RENAL ULTRASOUND HISTORY: KIM on CKD COMPARISON: CT of the abdomen and pelvis dated 12/07/2022 FINDINGS: There is no evidence of obstructive uropathy. Right kidney: Measurement is 7.0 x 3.1 x 3.2 cm. No hydronephrosis. There is no focal lesion detected . Left kidney: Measurement of 7.8 x 4.5 x 3.4 cm. There is no hydronephrosis or focal lesion identified . Bladder: There is a Edmonds catheter balloon identified within the empty urinary bladder. IMPRESSION: Bilaterally small kidneys. No hydronephrosis. ACT 112: Negative or not required by law. Electronically signed by: Deana Truong M.D. 03/19/2024 9:17 AM
[2024-03-19 09:45] LABS: Immature Retic Fraction 22.7 % (2.3-15.9); Reticulated Hemoglobin 29.5 pg (28.2-36.6); Reticulocyte % 1.42 % (0.50-2.00); Reticulocytes # 0.05 10^6/uL (0.020-0.100)
[2024-03-19 09:56] LABS: Folate (Folic Acid),Ser orPlas 10.95 ng/ml (>5.38)
--- NOTE | 2024-03-19 10:07 | Nephrology Consultation ---
Date of Consultation March 19, 2024 Assessment & Plan (1) KIM (acute kidney injury): nonoliguric stage 1 KIM on CKD 3B. slowly worsening. She had IV contrast on 03/16 at admission as well as lasix 20 mg IV x 2 and one dose of losartan 25 mg; also had 40 mg IV lasix on 03/17. contrast induced nephropathy likely worsened by diuresis > would expect creatinine to plateau soon -daily bmp -continue daily standing weights and FR given HFpEF; ? if anemia has role in dyspnea -repeat UACM (2) Chronic kidney disease stage 3: baseline creatinine 1.4. chemistries acceptable -daily bmp -cont supportive care (3) Hypertension: currently on no BP meds; BP has not been severely elevated since admission events -cont to monitor; ? med adherence prior to admission History of Present Illness Reason for Consultation: initial HFpEF now progressive renal dysfunction Requesting Physician: Dr Ba Attending Physician: Ann Marie Ba MD History of Present Illness 85 y/o F whom I'm asked to see for worsening renal function in the setting of care for HFpEF was admitted here 03/16 for acute on chronic HFpEF and HTN urgency. She presented with HTN urgency and one day of worsening dyspnea at rest and w/ motion as well as transient anginal sx after missing her AM BP meds.. PMH includes HFpEF, CAD s/p CABG, pAF, non albuminuric CKD stage IIIb (baseline creatinine 1.4 w/ somewhat labile renal function), hypertension, GERD w/ h/o gastric ulcer, degenerative disc disease, anxiety/depression. She was seen once in kidney clinic in 2022 and was at that time nonadherent to diuretics d/t challenges of urinary frequency/urgency. Her presenting creatinine was 1.2; dolores from admission up to peak at 2.1 today. She had IV contrast on 03/16 at admission as well as lasix 20 mg IV x 2 and one dose of losartan 25 mg; also had 40 mg IV lasix on 03/17. She is on RA. Her SBP has generally been in 110-120s systolic since admission though a few readings in 100s yesterday am and this PM up to 154 systolic. Standing weights this admission (kg) >> 03/16 70.1, 03/17 67.9; 03/18 68.3; 03/19 69. She is on a heart healthy diet w/ 2L FR. Her shortness of breath was severe on presentation and has recurred intermittently since arrival; one other episode of chest pain as well. her CC today though is N, including w/ looking at food. states had been eating well until today. no emesis. no orthopnea, cough or leg edema. Denies palpitations, presyncopal or orthostatic sx, fever, vision change, vomiting, abdominal pain, diarrhea, constipation, dysuria, gross hematuria, recent change in medication Allergies Allergy/AdvReac Type Severity Reaction Status Date / Time nitroglycerin AdvReac Severe "PROJECTILE Verified 01/29/23 15:15 VOMITTING" ergotamine AdvReac Intermediate vomiting Verified 01/29/23 15:15 Home Medications Medication Instructions Recorded Confirmed Type apixaban 5 mg tablet (Eliquis) 5 mg PO BID 12/13/23 03/16/24 History buspirone 10 mg tablet 10 mg PO BID 12/13/23 03/16/24 History calcitriol 0.25 mcg capsule 0.25 mcg PO UD 12/13/23 03/16/24 History gabapentin 300 mg capsule 300 mg PO TID 12/13/23 03/16/24 History metoprolol succinate 25 mg 37.5 mg PO DAILY 12/13/23 03/16/24 History tablet,extended release 24 hr pantoprazole 40 mg tablet,delayed 40 mg PO DAILY 12/13/23 03/16/24 History release rosuvastatin 10 mg tablet 10 mg PO DAILY 12/13/23 03/16/24 History levothyroxine 75 mcg tablet 75 mcg PO DAILYBB #30 tabs 12/20/23 03/16/24 Rx (Synthroid) losartan 25 mg tablet 25 mg PO DAILY 03/16/24 03/16/24 History Patient History Medical History Somatic dysfunction of sacroiliac joint History of blood transfusion 2012 2/2 GASTRIC ULCER History of gastric ulcer 2012 Spinal stenosis Gastric ulcer Atrial fibrillation with rapid ventricular response (11/2022) Fall Moderate mitral regurgitation Transient ischemic attack (TIA) ~2012>REASON FOR PLAVIX Osteoarthritis Chronic back pain Dyslipidemia Chronic kidney disease stage 3 Hypertension Surgical History 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 History of cardiac cath NO STENTS History of coronary artery bypass graft 1998 (1 VESSEL) S/P epidural steroid injection History of esophagogastroduodenoscopy (EGD) S/p reverse total shoulder arthroplasty RT/LEFT History of abdominoplasty PANNICULECTOMY History of colonoscopy History of arthroplasty of right hip History of arthroplasty of left hip History of hysterectomy with oophorectomy History of arthroplasty of left shoulder History of tonsillectomy and adenoidectomy H/O bilateral salpingo-oophorectomy with hyter Family History Father , age 74 Allergic reaction Mother , 80s CHF (congestive heart failure) Other No family history of adverse response to anesthesia Social History Smoking Status: Never smoker Second Hand Exposure: No; Do You Dip or Chew Tobacco: No; Hx Alcohol Use: No Hx Substance Use: No Preferred Language: Portuguese Communication Ability: Effective Visual Impairment: No Limitations Histology Teacher Required: No Beliefs That Will Affect Care: Zoroastrian Zoroastrian Beliefs: Mormonism marital status: Single Current Living Situation: Alone Current Living Situation Comment: [facility] How many Children do You have: 0 Feels Safe at Home: Yes Safety Concerns: Feels Safe At This Time Assistive Devices: Walker Review of Systems 2 Review of Systems: All systems reviewed & are unremarkable except as noted in HPI & below Physical Exam 2 Constitutional: well developed and well nourished; no acute distress Eyes: EOM intact bilaterally ENMT: Mouth: + dry oral mucous membranes Respiratory: normal respiratory effort Auscultation: + diminished lung sounds and + crackles (end insp and fine) Cardiovascular: Rate/Rhythm: + irregularly irregular Extremities: no edema Gastrointestinal (Abdomen): Inspection/Auscultation: normal bowel sounds P ercussion/Palpation: abdomen soft; abdomen nontender Musculoskeletal: Extremities: strength 5/5 throughout Skin: no rashes, warm and dry Neurologic: cardenas, fluent speech, no tremor; maneuvers readily for exam Results & Data Vital Signs (Past 12 Hours) Vital Signs Temp Pulse Pulse Resp BP BP Pulse Ox 03/19/24 08:20 03/19/24 07:49 36.7 C 66 18 111/59 L 96 03/19/24 07:38 57 L 03/19/24 03:37 36.6 C 62 18 112/66 96 03/18/24 23:36 36.5 C 73 18 120/76 96 03/18/24 23:33 O2 Del Method 03/19/24 08:20 Room Air 03/19/24 07:49 Room Air 03/19/24 07:38 03/19/24 03:37 Room Air 03/18/24 23:36 Room Air 03/18/24 23:33 Room Air Laboratory Results 03/19/24 05:30 03/18/24 13:06 1+ blood on UA, 1021 SG else bland Diagnostic Findings renal u/s > 7 cm R and 7.8 cm L kidney w/o obstruction or acute /chronic lesion chest CTA > small BL pl effusions and mild plm edema; no PE BLE arterial duplex > possible L PAD (3) Hypertension Hypertension type: essential hypertension Qualified Code(s): I10 - Essential (primary) hypertension
--- NOTE | 2024-03-19 15:12 | Hospitalist Progress Note ---
Date of Service March 19, 2024 Assessment & Plan (1) Acute on chronic diastolic CHF (congestive heart failure): Plan: Ms. Howard is an 85-year-old female with past medical history significant for hypothyroidism, history of hypercalcemia, hiatal hernia, thoracic aortic ectasia, chronic diastolic CHF, CAD status post CABG, hypertension, chronic atrial fibrillation, mild aortic stenosis, GERD, CKD stage III osteoarthritis depression, insomnia, mixed incontinence urge and stress currently living at personal-alf who is admitted for acute on chronic heart failure with preserved EF #Asymptomatic bradycardia *resolved #Chronic atrial fibrillation Held metoprolol will need to consider resumption per cards On Eliquis for anticoagulation renally dosed eliquis Monitor on tele Cardiology following #KIM on CKD III likely iso diuertics and HTN held losartan held lasix given uptrending Cr Renal ultrasound with "small kidneys" Nephrology consulted given persistent increase in cr and need for diuresis #Acute on chronic HFpEF #Bilateral pleural effusion secondary to above --Chest CTA:No pulmonary embolism. CHF with small bilateral pleural effusions and mild adjacent compressive atelectasis at the lower lung lobes. Mild pulmonary edema. No pneumonia seen. --BNP 626 Update ECHO Started IV Lasix 40mg daily, hold Monitor Daily weight, I/Os, fluid restriction Oxygen support PRN Monitor renal function/electrolytes Cardiology consulted: recommended diuersis and resume bb when able Holding diuersis 2/2 BUN/Cr increase, nephrology consulted Await further cardiology recommendations #Atypical chest pain resolved #CAD s/ CABG #Hypertensive emergency SBP 205, improvement with home meds resumed resolved at this time #Elevated troponin likely demand iso volume overload resolved slight increase, repeat and monitor on tele until downtrend #Chronic normocytic anemia Hemoglobin at baseline No acute bleeding issues Monitor #aortic stenosis #Dilated ascending aorta ECHO as above #Hypothyroidism continue Levothyroxine TSH 2.2 03/16 Other chronic conditions GERD Degenerative disc disease Anxiety H/O gastric ulcer Depression Continue home medications as able DVT Px: Eliquis CODE STATUS Full code Disposition PT/OT home health services Dispo based upon renal function stabilizing Admission and Anticipated Discharge Date Admission Date: March 16, 2024 Subjective Patient reportedly with leg pain--reports that it wasn't pain, but more tingly--then described as "restless" Denies any headaches or other acute concerns Alert and oriented x 3 this am [place] with clear uop, remembers provider by name Physical Exam Constitutional: WD/WN, vitals as above Respiratory: diminished bibasilar sounds, but otherwise clear Cardiovascular: irreguarly irregular +JAN, no pedal edema Results & Data Results & Data Vital Signs (Past 12 Hours) Vital Signs Temp Pulse Pulse Resp BP BP Pulse Ox 03/19/24 13:44 70 03/19/24 11:20 36.6 C 63 18 135/63 97 03/19/24 08:20 03/19/24 07:49 36.7 C 66 18 111/59 L 96 03/19/24 07:38 57 L 03/19/24 03:37 36.6 C 62 18 112/66 96 O2 Del Method 03/19/24 13:44 03/19/24 11:20 Room Air 03/19/24 08:20 Room Air 03/19/24 07:49 Room Air 03/19/24 07:38 03/19/24 03:37 Room Air Laboratory Results Short CBC 03/19/24 Range/Units 05:30 WBC 5.71 (4.8-10.8) K/ul Hgb 8.6 L (12.0-16.0) g/dl Hct 26.9 L (37.0-47.0) % Plt Count 173 (130-400) K/uL Cardiac Enzymes 03/18/24 Range/Units 13:06 Total Creatine Kinase 118 (26-192) U/L Urine 03/18/24 Range/Units Unknown Urine Color Yellow Urine Appearance Clear (Clear) Urine pH 6.0 (4.5-7.5) Ur Specific [place] 1.021 (1.000-1.030) Urine Protein Negative (Negative) Urine Glucose (UA) Negative (Negative) Medications Administered Home Medications Medication Instructions Recorded Confirmed Last Taken apixaban 5 mg tablet (Eliquis) 5 mg PO BID 12/13/23 03/16/24 Unknown buspirone 10 mg tablet 10 mg PO BID 12/13/23 03/16/24 Unknown calcitriol 0.25 mcg capsule 0.25 mcg PO UD 12/13/23 03/16/24 Unknown gabapentin 300 mg capsule 300 mg PO TID 12/13/23 03/16/24 Unknown metoprolol succinate 25 mg 37.5 mg PO DAILY 12/13/23 03/16/24 Unknown tablet,extended release 24 hr pantoprazole 40 mg tablet,delayed 40 mg PO DAILY 12/13/23 03/16/24 Unknown release rosuvastatin 10 mg tablet 10 mg PO DAILY 12/13/23 03/16/24 Unknown levothyroxine 75 mcg tablet 75 mcg PO DAILYBB #30 tabs 12/20/23 03/16/24 Unknown (Synthroid) losartan 25 mg tablet 25 mg PO DAILY 03/16/24 03/16/24 Unknown Active Medications Generic Name Dose Route Start Last Admin Trade Name Freq PRN Reason Stop Dose Admin Acetaminophen 650 mg 03/16/24 15:28 03/19/24 02:01 Acetaminophen 325 Mg Tab PO 04/15/24 15:27 650 mg Q4H PRN Administration Pain or Fever Apixaban 2.5 mg 03/17/24 21:00 03/19/24 08:54 Apixaban 2.5 Mg Tab PO 04/16/24 20:59 2.5 mg BID YAN Administration Buspirone HCl 10 mg 03/18/24 14:00 03/18/24 20:00 Buspirone 5 Mg Tab PO 04/17/24 13:59 10 mg TID YAN Administration Calcitriol 0.25 mcg 03/17/24 09:00 03/19/24 08:54 Calcitriol 0.25 Mcg Capsule PO 04/16/24 08:59 0.25 mcg [id number] YAN Administration Gabapentin 300 mg 03/16/24 15:30 03/18/24 20:01 Gabapentin 300 Mg Cap PO 04/15/24 15:29 300 mg TID YAN Administration Levothyroxine Sodium 75 mcg 03/17/24 06:30 03/19/24 05:38 Levothyroxine Sodium 75 Mcg Tablet PO 04/16/24 06:29 75 mcg DAILYBB YAN Administration Melatonin 6 mg 03/17/24 00:55 03/19/24 00:11 Melatonin 3 Mg Tab PO 04/15/24 18:30 6 mg HS PRN Administration Sleep Pantoprazole Sodium 40 mg 03/17/24 09:00 03/19/24 08:54 Pantoprazole 40 Mg Tab PO 04/16/24 08:59 40 mg DAILY YAN Administration Rosuvastatin Calcium 10 mg 03/17/24 09:00 03/19/24 08:54 Rosuvastatin Calcium 10 Mg Tab PO 04/16/24 08:59 10 mg DAILY YAN Administration
[2024-03-19 18:50] LABS: Appearance Urine Clear (Clear); Bacteria Urine Automated None Seen (None Seen); Bilirubin Urine Negative (Negative); Blood Urine Negative (Negative); Cast Urine Automated 0-2 /lpf (0-2); Color Urine Yellow; Epithelial Cell Urine Auto 0-2 /hpf (0-2); Glucose Urine UA Negative (Negative); Ketones Urine Negative (Negative); Leukocyte Esterase Urine 1+ (Negative); Nitrite Urine Negative (Negative); Protein Urine Negative (Negative); Specific Gravity Urine 1.016 (1.000-1.030); Urobilinogen Urine Negative (Negative); WBC Urine Automated 0-5 /hpf (0-5); pH Urine 7.5 (4.5-7.5)
[2024-03-19] MEDS: IRON SUCROSE 200 MG in SODIUM CHLORIDE 0.9% 100 ML IV ONE (19:12)
[2024-03-19] MEDS: TROLAMINE SALICYLATE 10% CRM 255 APPLN/85 GM TUBE EXT SCH (20:17)
[2024-03-20 06:18] LABS: Hematocrit (blood only) 29.6 % (37.0-47.0); Hemoglobin 9.5 g/dl (12.0-16.0); Mean Corpuscular Hemoglobin 27.1 pg (25.0-34.0); Mean Corpuscular Hgb Conc 32.1 g/dL (32.0-36.0); Mean Corpuscular Volume 84.3 fL (80.0-100.0); Mean Platelet Volume 9.5 fL (9.4-12.4); Platelet Count 184 K/uL (130-400); RDW Coefficient of Variation 15.6 % (11.5-14.5); RDW Standard Deviation 47.1 fL (36.4-46.3); Red Blood Count 3.51 M/uL (4.20-5.40); White Blood Count 5.36 K/ul (4.8-10.8)
[2024-03-20 06:35] LABS: BUN Creatinine Ratio 22.8 (10-20); Calcium 9.8 mg/dl (8.6-10.3); Creatinine Clr Calc Pharmacy 26.9 ml/min; Magnesium 2.1 mg/dl (1.7-2.4); Phosphorus 2.9 mg/dl (2.5-4.9); Potassium 4.1 mmol/L (3.5-5.1)
--- NOTE | 2024-03-20 08:20 | Nephrology Progress Note ---
Date of Service March 20, 2024 Assessment & Plan (1) Hypertension: Plan: currently on no BP meds; BP w/ some elevations late yesterday to 150s systolic and 170 at 0300; back down to 128/73 by 0800 -suspect given her BP response to minimal meds she may have been nonadherent to BP meds prior to admission -as OP reportedly takes metoprolol ER 37.5 mg daily and losartan 25 mg daily; historically refuses OP diuretics >> currently all BP meds on hold, though did have on 03/16 lasix 20 mg IV x 2 and one dose of losartan 25 mg; also had 40 mg IV lasix on 03/17. -TTE unchnaged v 11/2023; mild & [facility] ->>>would hold BB for now given HR in 30s ON and 50-60s on day -cont to hold ARB and further lasix for now >cause of N unclear and did update primary service; had zofran this AM x 1 apparently w/o relief -concern she may not be able to return to independent living given behaviors/memory concerns observed by nursing/myself > did review w/ primary service (2) KIM (acute kidney injury): Plan: resolving nonoliguric stage 1 KIM on CKD 3B. baseline 1.4; presented at 1.8 on 03/17, peaked at 2.1 one day after admission, back to baseline today, though routine OP BP meds not on yet She had IV contrast on 03/16 at admission as well as lasix 20 mg IV x 2 and one dose of losartan 25 mg; also had 40 mg IV lasix on 03/17. prerenal/ischemic renal failure from both contrast induced nephropathy and diuresis > improved /resolved w/ supportive care. repeat UACM is w/o blood or consistent inflammation. Standing weights this admission (kg) >> 03/16 70.1, 03/17 67.9; 03/18 68.3; 03/19 69; 03/20 67.6. -daily bmp -continue daily standing weights and FR given HFpEF; ? if anemia has role in dyspnea ->>>order in to d/c mora as we are not diuresing her (3) Chronic kidney disease stage 3: Plan: baseline creatinine 1.4. chemistries acceptable and renal function back to baseline -daily bmp -cont supportive care Admission and Anticipated Discharge Date Admission Date: March 16, 2024 Subjective c/o severe N; no abd pain no emesis; no d/c. no sob, no other muscskel pain. can't remember if she ate brkfst can't remember she had told RN about N and that she had med for it; RN reports pt owns per night team; has been forgetful/ repeating herself, asking same ?; HR drops to 30s at night per report > today in 50-60s Review of Systems 2 Review of Systems: All systems reviewed & are unremarkable except as noted in Subjective Physical Exam 2 Constitutional: well developed, well nourished, + acute distress (mild from N), + altered mental status (?states can't remember if she ate breakfast or if she has a nurse) and cooperative Eyes: EOM intact bilaterally ENMT: Mouth: + dry oral mucous membranes Respiratory: normal respiratory effort Auscultation: + diminished lung sounds and + crackles (end insp and fine L base only) Cardiovascular: Rate/Rhythm: + irregularly irregular (in 60s) Extremities: no edema Gastrointestinal (Abdomen): Inspection/Auscultation: normal bowel sounds P ercussion/Palpation: abdomen soft; abdomen nontender Musculoskeletal: Extremities: strength 5/5 throughout Skin: no rashes, warm and dry Results & Data Vital Signs (Past 12 Hours) Vital Signs Temp Pulse Resp BP Pulse Ox O2 Del Method 03/20/24 03:25 36.6 C 77 20 170/84 H 93 Room Air 03/19/24 22:38 36.8 C 66 20 150/87 H 96 Room Air 03/19/24 21:31 Room Air Laboratory Results 03/20/24 06:01 03/20/24 06:01 (1) Hypertension Hypertension type: essential hypertension Qualified Code(s): I10 - Essential (primary) hypertension
[2024-03-20] MEDS: ONDANSETRON INJ 2 MG/ML 2 ML VIAL IV PRN (08:25)
[2024-03-20] MEDS: FERROUS SULFATE 325 MG TAB PO SCH (08:27)
[2024-03-20] MEDS: METOPROLOL SUCC 25MG EXT REL TAB PO SCH (10:24)
--- NOTE | 2024-03-20 11:02 | Hospitalist Progress Note ---
Date of Service March 20, 2024 Assessment & Plan (1) Acute on chronic diastolic CHF (congestive heart failure): (2) Asymptomatic bradycardia: (3) Chronic atrial fibrillation: (4) Acute renal failure superimposed on stage 3 chronic kidney disease: (5) Anemia, chronic disease: (6) Hypothyroidism: (7) Chest pain, atypical: Plan Patient presented with acute on chronic heart failure, underwent some diuresis, experienced some acute kidney injury most likely due to diuresis and IV contrast. This is subsequently improved and returned to baseline. Communication with nephrology, no additional diuresis required Bradycardia has improved, some intermittent bradycardia at night. Trial of lower dose metoprolol to manage chronic atrial fibrillation Continue anticoagulation with Eliquis in the setting of atrial fibrillation Patient complaining of nausea. Trial of Compazine. Encourage activity. Therapy evaluations ongoing Patient may need long term rehab Reported some confusion possible delirium, suspect hospital delirium or due to her medical condition. Will continue to observe and. Anticipate improving when she gets back to usual familiar surroundings and usual routine. Admission and Anticipated Discharge Date Admission Date: March 16, 2024 Subjective Patient's main complaint is nausea. Not improved with Zofran this morning. Nursing and medical team reports having some issues with confusion especially in the evening. As well as some short-term memory deficits while here in the hospital Physical Exam Physical Exam: Constitutional: Alert, nontoxic HEENT: Mucous membranes moist. Lungs: Decreased breath sounds CV: S1-S2, regular Abdomen: Soft, nontender, nondistended Extremities: No significant edema Neuro: No focal deficits, generally weak Psych: Cooperative, impaired memory Results & Data Results & Data Vital Signs (Past 12 Hours) Vital Signs Temp Pulse Resp BP Pulse Ox O2 Del Method 03/20/24 08:00 36.4 C L 71 18 128/73 97 Room Air 03/20/24 03:25 36.6 C 77 20 170/84 H 93 Room Air Diagnostic Findings Reviewed imaging, laboratory and diagnostic studies. Pertinent findings as below. Creatinine 1.36, significantly improved Electrolytes stable Hemoglobin 9.5, at baseline (6) Hypothyroidism Hypothyroidism type: unspecified Qualified Code(s): E03.9 - Hypothyroidism, unspecified
[2024-03-20] MEDS: PROCHLORPERAZINE 10 MG in SYRINGE 8 ML IV PRN (11:59)
[2024-03-21 07:42] LABS: BUN Creatinine Ratio 16.9 (10-20); Calcium 10.5 mg/dl (8.6-10.3); Creatinine Clr Calc Pharmacy 29.7 ml/min; Potassium 4.3 mmol/L (3.5-5.1)
--- NOTE | 2024-03-21 10:35 | Nephrology Progress Note ---
Date of Service March 21, 2024 Assessment & Plan (1) Hypertension: Plan: currently on no BP meds; BP much more elevated 03/20 than on 03/19, though w/ some elevations late 03/19 to 150s systolic and 170 at 0300; back down to 128/73 by 0800 -suspect given her BP response to minimal meds she may have been nonadherent to BP meds prior to admission -as OP reportedly takes metoprolol ER 37.5 mg daily and losartan 25 mg daily; historically refuses (or simply doesn't take) OP diuretics >> currently all BP meds on hold, though did have on 03/16 lasix 20 mg IV x 2 and one dose of losartan 25 mg; also had 40 mg IV lasix on 03/17. -TTE unchanged v 11/2023 >> mild & [facility] -had held BB given ramez to 30s >>>after d/w Dr Ardon > will resume metoprolol 12.5 mg daily ER and losartan 25 mg daily -low threshold for zio study after d/c given labile HR -hold further lasix for now >cause of N unclear and primary service aware -concern she may not be able to return to independent living given behaviors/memory concerns observed by nursing/myself > did review w/ primary service Changes in BP meds, update on N and bradycardia reviewed w/ Dr Ardon in person; we are in agreement. (2) Chronic kidney disease stage 3: Plan: baseline creatinine 1.4. chemistries acceptable and renal function better than baseline (off of OP ARB) at 1.2 -daily bmp -cont supportive care (3) KIM (acute kidney injury): Plan: resolvied nonoliguric stage 1 KIM on CKD 3B. baseline 1.4; presented at 1.8 on 03/17, peaked at 2.1 one day after admission, back to 1.2, better than baseline today, though routine OP BP meds not on yet She had IV contrast on 03/16 at admission as well as lasix 20 mg IV x 2 and one dose of losartan 25 mg; also had 40 mg IV lasix on 03/17. prerenal/ischemic renal failure from both contrast induced nephropathy and diuresis > improved /resolved w/ supportive care. repeat UACM is w/o blood or consistent inflammation. Standing weights this admission (kg) >> 03/16 70.1, 03/17 67.9; 03/18 68.3; 03/19 69; 03/20 67.6; 03/21 68.5. -daily bmp -continue daily standing weights and FR given HFpEF; ? if anemia has role in dyspnea Admission and Anticipated Discharge Date Admission Date: March 16, 2024 Subjective BP elevated last 24 hrs; pt c/o N worse w/ exertion and with po intake; some inconsistency in reporting sx; last HR 30s was 10 AM on 03/20; Review of Systems 2 Review of Systems: All systems reviewed & are unremarkable except as noted in Subjective Physical Exam 2 Constitutional: well developed (sitting up in chair on RA), well nourished, + acute distress (mild from N) and cooperative Eyes: EOM intact bilaterally ENMT: Mouth: + dry oral mucous membranes Respiratory: normal respiratory effort Auscultation: lungs clear to auscultation bilaterally and + diminished lung sounds Cardiovascular: Rate/Rhythm: + irregularly irregular (in 60s) Extremities: no edema Gastrointestinal (Abdomen): Inspection/Auscultation: normal bowel sounds P ercussion/Palpation: abdomen soft; abdomen nontender Musculoskeletal: Extremities: strength 5/5 throughout Skin: no rashes, warm and dry Results & Data Vital Signs (Past 12 Hours) Vital Signs Temp Pulse Resp BP Pulse Ox O2 Del Method 03/20/24 22:50 36.5 C 73 17 144/72 H 97 Room Air Laboratory Results 03/20/24 06:01 03/21/24 05:58 (1) Hypertension Hypertension type: essential hypertension Qualified Code(s): I10 - Essential (primary) hypertension
--- NOTE | 2024-03-21 12:35 | Hospitalist Progress Note ---
Date of Service March 21, 2024 Assessment & Plan (1) Acute on chronic diastolic CHF (congestive heart failure): (2) Asymptomatic bradycardia: (3) Chronic atrial fibrillation: (4) Acute renal failure superimposed on stage 3 chronic kidney disease: (5) Anemia, chronic disease: (6) Hypothyroidism: (7) Chest pain, atypical: (8) Hypertension: (9) Anxiety: Plan Patient with chronic complaints of nausea, however her appetite and oral intake has not diminished at all. At this time we will continue to observe and recommend any type of interventions only if patient's diet would significantly decrease or start having some other localizing symptoms Communication with nephrology, discussed restarting much lower dose metoprolol. No reoccurrence of bradycardia for greater than 24 hours. So also starting low- dose losartan For managing blood pressure Consider Zio patch outpatient for monitoring of A-fib for tacky or bradycardia arrhythmias. Reviewed case management notes, patient physically able to return to independent living, resume home health care. Suspect some of the patient's perceived shortness of breath and potentially even nausea may be related to her anxiety. BuSpar restarted yesterday Patient states that her brother really is not involved in her care and would not disturb him with phone calls. Admission and Anticipated Discharge Date Admission Date: March 16, 2024 Subjective No acute issues reported overnight. Patient states she still is nauseated but she ate her entire breakfast. Intermittent complaints of shortness of breath to others but denied shortness of breath to me. She is quite certain she is very compliant with her medications at home. Physical Exam Physical Exam: Constitutional: Alert HEENT: Mucous membranes moist. Lungs: Decreased breath sounds CV: S1-S2, irregular Abdomen: Soft, nontender, nondistended Extremities: No significant edema Neuro: No focal deficits Psych: Cooperative, suspect impaired short-term memory Results & Data Results & Data Vital Signs (Past 12 Hours) Vital Signs Temp Pulse Resp BP Pulse Ox O2 Del Method 03/21/24 11:39 36.9 C 71 18 111/70 93 Room Air Diagnostic Findings Reviewed imaging, laboratory and diagnostic studies. Pertinent findings as below. Creatinine 1.24, continuing to improve Other electrolytes stable (6) Hypothyroidism Hypothyroidism type: unspecified Qualified Code(s): E03.9 - Hypothyroidism, unspecified
[2024-03-21] MEDS: METOPROLOL SUCC 25MG EXT REL TAB PO SCH (13:44)
[2024-03-21] MEDS: LOSARTAN POTASSIUM 25 MG TAB PO SCH (13:45)
[2024-03-21] MEDS: ONDANSETRON 4 MG OD TAB PO PRN (14:49)
--- NOTE | 2024-03-22 10:52 | Hospitalist Progress Note ---
Date of Service March 22, 2024 Assessment & Plan (1) Acute on chronic diastolic CHF (congestive heart failure): (2) Asymptomatic bradycardia: (3) Chronic atrial fibrillation: (4) Acute renal failure superimposed on stage 3 chronic kidney disease: (5) Anemia, chronic disease: (6) Hypothyroidism: (7) Chest pain, atypical: (8) Hypertension: (9) Anxiety: Plan Patient currently in a compensated state for her heart failure.Continuing to observe off diuretics Patient seems to have tolerated the reintroduction of the Toprol and losartan no bradycardia blood pressure overall improved Patient with persistent complaints of nausea but tolerating all meals. Suspect this may be due to her anxiety. Trial of scheduled low-dose Ativan. Also iron can cause some chronic nausea will discontinue iron supplementation Somewhat concerned with patient's short-term memory issues and her living independently. Will follow-up with case management. Not sure that the patient really has much other options. Home health will be coming into cyst. Check labs in a.m., anticipate possible discharge tomorrow. Admission and Anticipated Discharge Date Admission Date: March 16, 2024 Subjective Patient continues to complain of constant nausea. States that no medicine really seems to help. She reported that she did not eat any breakfast other than her coffee. Further discussion then with nurse and nurses aide. They report patient ate her entire breakfast and actually asked for more coffee. Definitely seems to be having some psychiatric etiology for some of her somatic complaints. States that she she ate all of her breakfast drank her coffee asked for more coffee and then dry heaved in the wastebasket. They note that the patient has some short-term memory issues or some type of other secondary gain with her asking for more to eat yet then still saying she is nauseated. On direct questioning patient denies any type of anxiety. When informed that she did eat all of her breakfast she then seem to cover and sterile yes thank you for reminding me. Physical Exam Physical Exam: Constitutional: Alert, nontoxic, no acute distress HEENT: Mucous membranes moist. Lungs: Clear to auscultation, decreased, no wheezes rales or rhonchi CV: S1-S2, regular Abdomen: Soft, nontender, nondistended, no guarding or rigidity Extremities: No significant edema Neuro: No focal deficits Psych: Cooperative, but does seem somewhat anxious, short-term memory issues Results & Data Results & Data Vital Signs (Past 12 Hours) Vital Signs Temp Pulse Resp BP Pulse Ox O2 Del Method 03/22/24 08:18 36.8 C 77 19 113/72 97 Room Air 03/22/24 03:34 36.5 C 83 18 161/93 H 98 Room Air 03/21/24 23:42 36.6 C 69 18 132/71 96 Room Air Diagnostic Findings Reviewed imaging, laboratory and diagnostic studies. Pertinent findings as below. No new laboratory testing for this morning (6) Hypothyroidism Hypothyroidism type: unspecified Qualified Code(s): E03.9 - Hypothyroidism, unspecified
[2024-03-22] MEDS: LORazepam 0.5 MG TAB PO SCH (11:30)
--- NOTE | 2024-03-22 15:11 | Cardiology Progress Note ---
Date of Service March 22, 2024 Assessment & Plan (1) Intractable nausea: (2) Paroxysmal A-fib: (3) Acute on chronic heart failure with preserved ejection fraction (HFpEF): (4) Anxiety: (5) CAD (coronary artery disease): Plan Patient well-known to me. Etiology of her nausea remains a mystery, she does receive some benefit from Zofran, Ativan is going to be attempted as well. She appears euvolemic off diuretics, would recommend she remain off maintenance diuretics, but have PRN doses available for abrupt weight gain, edema, etc. (She has used torsemide 20 mg daily PRN in the past). No evidence of ongoing myocardial ischemia. Her atrial fibrillation is intermittent but is currently rate controlled and she is anticoagulated with apixaban. Agree with continuing low-dose metoprolol, would avoid higher doses given her history of heart block (late 2023). No need for close cardiac follow-up since she is doing well from a cardiovascular standpoint, however I would be glad to see her for routine follow-up and encouraged her to schedule an appointment. Admission and Anticipated Discharge Date Admission Date: March 16, 2024 Subjective Patient well-known to me from sporadic outpatient visits (variable compliance). She complains of daily morning nausea which does not seem to be affected by changes in medication, dietary habits, or have any clear identifiable precipitant. She does note some benefit from Zofran. When she was admitted a week ago, she was felt to have mild volume overload and she received several doses of furosemide, none over the past few days. She is able to lie flat and denies any dyspnea, chest pain, or palpitations. Telemetry shows atrial fibrillation with generally good rate control (60-70 bpm), occasional high rates (up to 136 bpm). Physical Exam Physical Exam: Early white female appears mildly uncomfortable but not distressed. Weights do not appear reliable, but her current weight is similar to her usual baseline. BP normotensive. Full 67 bpm and irregular. Respirations 18 unlabored. Skin: No unusual lesions or ecchymosis. HEENT: Unremarkable. Neck: Jugular venous pulse at the clavicle at 90 with increased "v" waves, carotid with bilateral transmitted murmur. Lungs: Mildly decreased breath sounds, generally clear. No accessory muscle use. Cardiac: regular rhythm with normal S1 and moderately diminished A2. 2/6 systolic ejection murmur at the right upper sternal border radiating to the carotids, left sternal border, and axilla. No diastolic murmur or distinct gallop. Abdomen: Benign. Extremities: Nontender with stasis changes but no current pretibial edema. Intact peripheral pulses. Neurologic: Normal affect and conversation, nonfocal. Results & Data Vital Signs (Past 12 Hours) Vital Signs Temp Pulse Resp BP Pulse Ox O2 Del Method 03/22/24 11:13 97.9 F 67 18 115/65 98 Room Air 03/22/24 08:18 98.2 F 77 19 113/72 97 Room Air 03/22/24 03:34 97.7 F 83 18 161/93 H 98 Room Air PG Care Time/CCT Total # of Minutes Spent Total Time Spent with Patient: Total time spent is greater than 50% in coordination of care (as documented) at patient's floor/unit and/or counseling patient: Coding Level of Care Code 21969 SUB INP/OBS CARE 2/35MIN Diagnoses Intractable nausea R11.0 Paroxysmal A-fib I48.0 Acute on chronic heart failure with preserved ejection fraction (HFpEF) I50.33 Anxiety F41.9 Coronary artery disease involving [place] coronary artery of [place] heart without angina pectoris I25.10 Coronary Disease-Associated Artery/Lesion type: [place] artery [place] vs. transplanted heart: [place] heart Associated angina: without angina (5) CAD (coronary artery disease) Coronary Disease-Associated Artery/Lesion type: [place] artery [place] vs. transplanted heart: [place] heart Associated angina: without angina Qualified Code(s): I25.10 - Atherosclerotic heart disease of [place] coronary artery without angina pectoris
[2024-03-22] MEDS: MELATONIN 3 MG TAB PO SCH (21:59)
[2024-03-23 07:39] LABS: Hematocrit (blood only) 30.3 % (37.0-47.0); Hemoglobin 9.6 g/dl (12.0-16.0); Mean Corpuscular Hgb Conc 31.7 g/dL (32.0-36.0); Mean Corpuscular Volume 85.4 fL (80.0-100.0); Mean Platelet Volume 9.8 fL (9.4-12.4); Platelet Count 199 K/uL (130-400); RDW Coefficient of Variation 15.7 % (11.5-14.5); RDW Standard Deviation 48.3 fL (36.4-46.3); Red Blood Count 3.55 M/uL (4.20-5.40); White Blood Count 6.46 K/ul (4.8-10.8)
[2024-03-23 08:00] LABS: BUN Creatinine Ratio 18.3 (10-20); Calcium 10.3 mg/dl (8.6-10.3); Creatinine Clr Calc Pharmacy 29.6 ml/min; Potassium 4.3 mmol/L (3.5-5.1)
--- NOTE | 2024-03-23 10:52 | Hospitalist Progress Note ---
Date of Service March 23, 2024 Assessment & Plan (1) Acute on chronic diastolic CHF (congestive heart failure): (2) Asymptomatic bradycardia: (3) Chronic atrial fibrillation: (4) Acute renal failure superimposed on stage 3 chronic kidney disease: (5) Anemia, chronic disease: (6) Hypothyroidism: (7) Chest pain, atypical: (8) Hypertension: (9) Anxiety: (10) Problems related to lack of adequate sleep: (11) Delirium due to another medical condition, acute, hyperactive: Plan Patient's medical issues seem to have stabilized, euvolemic state with her heart failure blood pressure Fluctuating but believe overall controlled, suspect hypertensive episodes related to her anxiety. Renal function has steadily improved. However, patient struggling with her anxiety. Now exacerbated by significant sleep deprivation and hospital delirium. Extensive review of the medical record, patient has seen psychiatry here in the past. They had recommended continuing her medications but increasing her trazodone at that time. Patient has not currently on trazodone here in the [facility], was not on her home med list. Suspect this may help with her sleep. Also an attempt to minimize polypharmacy her gabapentin had been held this hospitalization was seeing if this was absolutely necessary medication for her with her anxiety will introduce a lower dose of gabapentin and may need to titrate that back up to her prior to admission dose. No new issues on telemetry, patient go to [facility] Extremely concerned about patient returning to her independent living. Concerned that she may have issues with remembering to take her medications or taking it too often because she forgets that she took it. Case management will need to continue to remain in her care. However not sure if patient would be willing to go to any other living place in her independent apartment. I do kvng gonzalez she still has decision-making capacity. Admission and Anticipated Discharge Date Admission Date: March 16, 2024 Subjective Patient reports the nausea is better, now concerned that she is hardly slept. Nurses confirm that she hardly slept all night. Apparently has been having issues with sleep for the past several nights. Scheduled melatonin and addition of lorazepam for the nausea did not seem to help with her sleep last night. Nursing reports that patient has exhibited some paranoia, questioning the medicines she is getting from the nurses and with whether she should be taking them. Extremely anxious about her overall medical condition but does not seem to understand why she should be so anxious. Physical Exam Physical Exam: Constitutional: Alert, nontoxic HEENT: Mucous membranes moist. Lungs: Clear to auscultation, decreased, no wheezes rales or rhonchi CV: S1-S2, regular Abdomen: Soft, nontender, nondistended Extremities: No significant edema Neuro: No focal deficits, generalized weakness Psych: Anxious, impaired short-term memory, somewhat restless Results & Data Results & Data Vital Signs (Past 12 Hours) Vital Signs Temp Pulse Resp BP Pulse Ox O2 Del Method 03/23/24 07:42 36.5 C 87 16 173/72 H 97 Room Air 03/22/24 23:30 36.7 C 65 16 127/76 96 Room Air Diagnostic Findings Reviewed imaging, laboratory and diagnostic studies. Pertinent findings as below. CBC stable Electrolytes stable Creatinine 1.2, improved (6) Hypothyroidism Hypothyroidism type: unspecified Qualified Code(s): E03.9 - Hypothyroidism, unspecified
[2024-03-23] MEDS: GABAPENTIN 100 MG CAP PO SCH (11:27)
[2024-03-23] MEDS: APIXABAN 5 MG TABLET PO SCH (22:05)
[2024-03-23] MEDS: traZODone HCL 100 MG TAB PO SCH (22:06)
--- NOTE | 2024-03-23 22:26 | Nephrology Progress Note ---
Date of Service March 23, 2024 Assessment & Plan (1) Hypertension: Plan: currently on no BP meds; BP much more elevated 03/20 than on 03/19, though w/ some elevations late 03/19 to 150s systolic and 170 at 0300; back down to 128/73 by 0800 -suspect given her BP response to minimal meds she may have been nonadherent to BP meds prior to admission -as OP reportedly takes metoprolol ER 37.5 mg daily and losartan 25 mg daily; historically refuses (or simply doesn't take) OP diuretics >> currently all BP meds on hold, though did have on 03/16 lasix 20 mg IV x 2 and one dose of losartan 25 mg; also had 40 mg IV lasix on 03/17. -TTE unchanged v 11/2023 >> mild & CLVH -had held BB earlier this admission given ramez to 30s >Toprol dose 12.5 mg daily now, cardiology agrees >zio if /per cardiology -continue losartan current dose >cause of N unclear and primary service aware -concern she may not be able to return to independent living given behaviors/memory concerns observed by nursing/myself > did review w/ primary service Will sign off. NEPHRO D/C RECS -d/c on toprol 12.5 mg daily and losartan 25 mg daily -f/u w/ cardiology per their recs -no OP nephrology f/u needed unless renal function worsens -PCP to check BMP, ACR at hospital d/c visit (2) Chronic kidney disease stage 3: Plan: baseline creatinine 1.4. chemistries acceptable and renal function better than baseline (off of OP ARB) at 1.2 -daily bmp -cont supportive care (3) KIM (acute kidney injury): Plan: resolvied nonoliguric stage 1 KIM on CKD 3B. baseline 1.4; presented at 1.8 on 03/17, peaked at 2.1 one day after admission, back to 1.2, better than baseline today, though routine OP BP meds not on yet She had IV contrast on 03/16 at admission as well as lasix 20 mg IV x 2 and one dose of losartan 25 mg; also had 40 mg IV lasix on 03/17. prerenal/ischemic renal failure from both contrast induced nephropathy and diuresis > improved /resolved w/ supportive care. repeat UACM is w/o blood or consistent inflammation. Standing weights this admission (kg) >> 03/16 70.1, 03/17 67.9; 03/18 68.3; 03/19 69; 03/20 67.6; 03/21 68.5. -daily bmp -continue daily standing weights and FR given HFpEF; ? if anemia has role in dyspnea Admission and Anticipated Discharge Date Admission Date: March 16, 2024 Subjective delayed entry after pt seen 1800; had N through day but resolved by the time I evaluated her; RN reports ongoing confusion; denies sob, denies edema; no new/worrisome voiding sx Review of Systems 2 Review of Systems: All systems reviewed & are unremarkable except as noted in Subjective Physical Exam 2 Constitutional: well developed (sitting up in bed on RA), well nourished, + acute distress (mild from N) and cooperative Eyes: EOM intact bilaterally ENMT: Mouth: + dry oral mucous membranes Respiratory: normal respiratory effort Auscultation: lungs clear to auscultation bilaterally and + diminished lung sounds Cardiovascular: Rate/Rhythm: regular rate and regular rhythm Extremities: n o edema Gastrointestinal (Abdomen): Inspection/Auscultation: normal bowel sounds P ercussion/Palpation: abdomen soft; abdomen nontender Musculoskeletal: Extremities: strength 5/5 throughout Skin: no rashes, warm and dry Results & Data Vital Signs (Past 12 Hours) Vital Signs Temp Pulse Pulse Resp BP Pulse Ox O2 Del Method 03/23/24 19:34 36.3 C L 83 16 149/78 H 98 Room Air 03/23/24 14:31 36.9 C 72 16 107/58 L 94 Room Air 03/23/24 11:16 36.7 C 74 20 135/76 95 Room Air Laboratory Results 03/23/24 06:58 03/23/24 06:58 (1) Hypertension Hypertension type: essential hypertension Qualified Code(s): I10 - Essential (primary) hypertension
[2024-03-24 07:21] VITALS: RESP 18
--- NOTE | 2024-03-24 10:29 | Discharge Summary ---
Discharge Summary Date of Service March 24, 2024 Principal Dx & Hospital Course #1 = Principal Diagnosis (1) Acute on chronic diastolic CHF (congestive heart failure): (2) Asymptomatic bradycardia: (3) Chronic atrial fibrillation: (4) Acute renal failure superimposed on stage 3 chronic kidney disease: (5) Anemia, chronic disease: (6) Hypothyroidism: (7) Chest pain, atypical: (8) Hypertension: (9) Anxiety: (10) Problems related to lack of adequate sleep: (11) Delirium due to another medical condition, acute, hyperactive: (12) Mild cognitive impairment: (13) Iron deficiency anemia: Plan Patient presented to the emergency room with increasing shortness of breath. Also having some chest tightness. In the emergency room was noted to be quite hypertensive and some evidence of decompensated heart failure. Also had significant evidence of acute kidney injury. Patient was admitted to the monitored setting. Initially losartan was increased for better blood pressure control and was given some IV diuresis. Nephrology consultation was obtained due to acute kidney injury. Subsequently patient was noted to have some significant bradycardia. This was asymptomatic. Her beta-brendan was discontinued. Patient was actually then continue to be monitored off all diuretics and losartan was held due to the acute kidney injury as well. Other nephrotoxins were held. Her BuSpar and gabapentin was held due to some encephalopathy as well. Her renal function steadily improved with these interventions. And eventually returned to baseline. Very low-dose metoprolol was reintroduced as well as low-dose losartan. This improved her blood pressure control and her renal function remained stable or continue to improve. Patient was then started currently is complaining of a lot of nausea but was still eating 100% of her meals. She also seemed to be very restless. She was not sleeping well at night. And this all contributed to generalized sense of anxiety. Her BuSpar was restarted. She was trialed on some scheduled lorazepam for her nausea. Both these interventions helped some, however she was still not sleeping well at night. Extensive review of the medical records show that she does struggle with anxiety. Has seen psychiatry in the past. Also has had sleep issues in the past and had been on trazodone. Trazodone was reintroduced. On morning of discharge she said she slept very well for 5 hours overnight which is the best she slept since she has been admitted to the hospital. With this better sleep her mentation actually was significantly improved. She still seemed to have some issues with short-term memory but overall's improved the point where we felt comfortable discharging her back to her independent living with home care and home health agencies. She will continue on the lower dose metoprolol. Continue to hold all diuretics. She had no evidence of any volume overload. Blood pressures overall were controlled with his current regimen. There was a question whether she may have even been forgetting to take some of her medications at some point. She will follow-up with her outpatient PCP. Notes For Next Care Provider Continue to monitor renal function intermittently May need further titration of blood pressure medications Medication Changes From Visit Toprol XL dose decreased Trazodone for sleep Given 3 days of scheduled Ativan for her nausea, suspect this is related to her anxiety here in the hospital anticipate when she gets home this will be improved Gabapentin dose decreased was reintroduced here in the hospital it was held from admission. May need to titrate back up to her previous dose of 300 mg 3 times daily if it was controlling her anxiety very well. Admission HPI Per Admitting Provider Patient is an 85-year-old female with history of hypothyroidism, diastolic heart failure, CKD stage III, CAD s/p CABG, hypertension, chronic atrial fibrillation, mild aortic stenosis, GERD, degenerative disc disease, anxiety, history of gastric ulcer, depression and other medical problems presents with history of worsening shortness of breath since 1 day duration. Patient states that she woke up from sleep this morning and found to be significantly short of breath while at rest and on exertion. She also states having some chest tightness which lasted for few minutes and currently resolved. She admits to missing her morning blood pressure medications. She was found to be in hypertensive urgency while in ED. Her shortness of breath is slightly improved after IV Lasix dose while in ED. She also admits to have some orthopnea but no PND or increased leg edema. Her weight seem to be increased by about 3 kg from last admission. Denies any history of palpitations, dizziness, cough, wheezing, fever, chills, chest trauma, headache, change in vision, nausea, vomiting, abdominal pain, diarrhea, dysuria, hematuria, recent change in medications. Admission Exam Per Admitting Provider See H&P Discharge Exam Constitutional: Alert, nontoxic HEENT: Mucous membranes moist. Lungs: Clear to auscultation, decreased, no wheezes rales or rhonchi CV: S1-S2, regular Abdomen: Soft, nontender, nondistended Extremities: No significant edema Neuro: No focal deficits Psych: Cooperative, normal mood, mild short-term memory deficits Updated Medication List Medication Instructions Recorded Confirmed Type apixaban 5 mg tablet (Eliquis) 5 mg PO BID 12/13/23 03/16/24 History buspirone 10 mg tablet 10 mg PO BID 12/13/23 03/16/24 History calcitriol 0.25 mcg capsule 0.25 mcg PO UD 12/13/23 03/16/24 History gabapentin 300 mg capsule 300 mg PO TID 12/13/23 03/16/24 History metoprolol succinate 25 mg 37.5 mg PO DAILY 12/13/23 03/16/24 History tablet,extended release 24 hr pantoprazole 40 mg tablet,delayed 40 mg PO DAILY 12/13/23 03/16/24 History release rosuvastatin 10 mg tablet 10 mg PO DAILY 12/13/23 03/16/24 History levothyroxine 75 mcg tablet 75 mcg PO DAILYBB #30 tabs 12/20/23 03/16/24 Rx (Synthroid) losartan 25 mg tablet 25 mg PO DAILY 03/16/24 03/16/24 History ferrous sulfate 325 mg (65 mg 325 mg PO DAILY #30 tabs 03/24/24 Rx iron) tablet (Feosol) gabapentin 100 mg capsule 100 mg PO TID #90 caps 03/24/24 Rx lorazepam 0.5 mg tablet 0.25 mg (1/2 x 0.5 mg) PO TID #9 03/24/24 Rx tabs melatonin 3 mg tablet 6 mg (2 x 3 mg) PO HS #30 tabs 03/24/24 Rx metoprolol succinate 25 mg 12.5 mg (1/2 x 25 mg) PO QAM #30 03/24/24 Rx tablet,extended release 24 hr tabs trazodone 100 mg tablet 100 mg PO HS #30 tabs 03/24/24 Rx Hospital Stay Data Consultations 03/16/24 12:43 ED Decision to Admit Stat 03/16/24 15:28 Consult Cardiology Routine 03/19/24 07:33 Consult Nephrology Routine Diagnostic Imagining Performed 03/16/24 10:58 CT angio chest PE protocol Stat 03/18/24 22:03 CT head/brain wo con Stat CT tib/fib RT wo con Stat 03/19/24 00:29 US arterial duplex LE RT Routine 03/19/24 07:38 US Renal Bladder [US renal/blad retro comp] Routine Reviewed imaging, laboratory and diagnostic studies. Pertinent findings as below. WBC 6.4 Hemoglobin 9.6 Platelets 199 Electrolytes stable Creatinine 1.26, baseline Respiratory viral panel negative Stool for occult blood negative TSH 2.2 B12 folate within normal ranges Iron 13 TIBC 342 Transferrin 244 Transferrin % 4 Pending Results Patient Have Any Pending Studies at Discharge: No Discharge Instructions Given to Patient (Per Discharging Provider) Continue to work with home health care to make sure you are taking your medications as prescribed Continue work with home health care for therapies Follow-up with your PCP Home Health Attestation I certify that this patient is under my care and that I, or a physicians psychology assistant working with me, had a face to-face encounter that meets the home health [id number] encounter requirements with this patient. The encounter with the patient was in whole, or in part, for the following medical condition, which is the primary reason for home health care (list medical condition): CHF; discharge Tuesday 03/21 I certify that, based on my findings, the following services are medically necessary home health services: My clinical findings support the need for the above services because: Caregiver Instruct Med Mgmt, Safety, Disease Process, Signs to Report Home Safety Assessment OT Assess ADL Status and Restore Function w ADLs PT Assessment for Endurance / Balance / Strength PT Eval for Safety and Mobility PT Eval for Safety, Gait Training, Assistive Devices PT Gait and Balance Training, Strengthening and Safety Skilled Nsg Assessment Skilled Nsg Instruction New Medications Skilled Nsg Assess Pt Illness, Disease and Sx Monitoring S/S to Report to Provider Teach on Disease Management and Interventions Further, I certify that my clinical findings support that this patient is homebound (i.e. absences from home require considerable and taxing effort and are for medical reasons or buddhism services or infrequently or of short duration when for other reasons) because: Transportation Assistance/Unable to Leave Home Unassisted Certification for Home Health Services: Based on the above findings, I certify that this patient is confined to the home and needs intermittent chcf care, physical therapy and/or speech therapy or continues to need occupational therapy. The patient is under my care, and I have initiated the establishment of the plan of care. This patient will be followed by a physician who will periodically review the plan of care. Total Time Total Time Spent Total Time Spent (In Minutes): 40
[2024-03-24 15:27] VITALS: TEMP 98.2; O2SAT 97
[2024-03-24 15:43] VITALS: BP 190/107; PULSE 72
== END 2024-03-24 17:04 | disposition home health service (06) | DRG 291 ==
LOC: ED 09:34 → 2S 13:55 → SUATTDRO 13:55 → 2S 14:53 → 3N 03-23 12:34

== ENCOUNTER 2024-04-25 17:24 | Inpatient (IN) ==
[2024-04-25 17:50] LABS: Basophils # (auto) 0.05 K/uL (0.00-0.20); Basophils % (auto) 0.9 %; Eosinophils # (auto) 0.12 K/uL (0.00-0.50); Eosinophils % (auto) 2.2 %; Hematocrit (blood only) 36.8 % (37.0-47.0); Hemoglobin 11.7 g/dl (12.0-16.0); Immature Granulocytes # (auto) 0.01 K/uL (0.01-0.20); Immature Granulocytes % (auto) 0.2 %; Lymphocytes # (auto) 1.51 K/uL (1.20-3.40); Mean Corpuscular Hemoglobin 27.5 pg (25.0-34.0); Mean Corpuscular Hgb Conc 31.8 g/dL (32.0-36.0); Mean Corpuscular Volume 86.4 fL (80.0-100.0); Mean Platelet Volume 10.4 fL (9.4-12.4); Monocytes # (auto) 0.64 K/uL (0.11-0.59); Monocytes % (auto) 11.9 %; Neutrophils # (auto) 3.07 K/uL (1.40-6.50); Neutrophils % (auto) 56.8 %; Platelet Count 192 K/uL (130-400); RDW Coefficient of Variation 18.4 % (11.5-14.5); RDW Standard Deviation 58.2 fL (36.4-46.3); Red Blood Count 4.26 M/uL (4.20-5.40)
--- NOTE | 2024-04-25 17:52 | Emergency Department Note ---
Impression & Plan Chest pain ED Provider Note HISTORY OF PRESENT ILLNESS: Patient is an 85-year-old female presenting with chest pain. Patient was just discharged from the emergency department at 3:30 PM and was en route to her house with EMS when she disclosed that she was having chest pain and shortness of breath again. The EMS crew did an EKG which showed A-fib and gave the patient 4 baby aspirin and brought the patient back to the ER. Patient was seen earlier in the emergency department for chest pain and had a negative workup. She is chest pain-free on arrival to the ER. Reports that the pain was in the substernal region and radiated into her left chest. Denies any DVT or PE history. She reports that she has cardiac stents that were "placed in 1997." She reports that she is on Eliquis. She denies any shortness of breath, nausea or vomiting. ROS: as above PHYSICAL EXAM: Constitutional: Patient appears in no acute distress. HENT: Head: Normocephalic and atraumatic. Eyes: EOMI, PERRL Mouth/Throat: Mucous membranes moist. Neck: Trachea midline. Neck supple. Cardiovascular: Irregular rhythm. No murmurs, rubs or gallops. Intact distal pulses. Pulmonary/Chest: No respiratory distress. Breath sounds clear and equal bilaterally. No wheezes or rales. Abdominal: Abdomen soft, no tenderness, rebound or guarding. Musculoskeletal: No edema, tenderness or deformity noted. Skin: Warm and dry. No rash, erythema, pallor or cyanosis Psychiatric: Appropriate mood and affect for situation. Neurological: Alert and keenly responsive. CN II-XII grossly intact, moving all extremities equally and fully. MDM: - Vitals signs showed hypertension - History obtained via patient. History as above. - Chronic conditions affecting care: HTN; CKD; HLD; TIA; Afib - Differential diagnoses include, but are not limited to: Acute coronary syndrome; pulmonary embolism; dissection; tension pneumothorax; esophageal rupture; pneumonia - Order placed for continuous cardiac monitoring. At this time, monitor showed rate of 77 bpm with normal sinus rhythm, per my interpretation. - External medical records reviewed. Discharge summary dated 03/24/2024 was reviewed. Patient was admitted at that time secondary to increasing shortness of breath and was found to have acute on chronic CHF exacerbation. - EKG image interpreted by myself showed atrial fibrillation. Rate 81 bpm. QT 374. No acute ischemic changes. - Laboratory workup interpreted by myself showed normal WBC; stable electrolytes; elevated total bilirubin (1.3); normal lipase; normal troponin - CXR from earlier today was negative for any acute abnormality. - Given patient's recurrent episodes of chest pain and second presentation in less than 12 hours, will admit to hospital service for further cardiac workup. - Discussion was had with director case management about patient's case and need for admission - Hospitalist, Dr. May, consulted for admission - Patient admitted to [facility] service for further evaluation and management. ASSESSMENT AND PLAN: Diagnosis: Chest pain Plan: Admit Past Med/Surg History Problem List (Updated 04/25/24 @ 18:39 by Alicia Koch MD) Chest pain (Acute) Esophagitis (Acute) Tachypnea (Acute) Shortness of breath (Acute) Iron deficiency anemia Mild cognitive impairment Delirium due to another medical condition, acute, hyperactive Problems related to lack of adequate sleep Intractable nausea Chronic atrial fibrillation Anemia, chronic disease Acute renal failure superimposed on stage 3 chronic kidney disease Asymptomatic bradycardia Hypertension (Acute) SOB (shortness of breath) (Acute) Ascending aorta dilation Acute alteration in mental status (Acute) Confusion Costochondritis Elevated troponin (Acute) Weakness (Acute) SOB (shortness of breath) (Acute) History of coronary artery disease (Acute) Precordial chest pain (Acute) CAD (coronary artery disease) Hypophosphatemia Hypomagnesemia Acute on chronic diastolic CHF (congestive heart failure) Pneumonia (Acute) Sepsis due to pneumonia Hyperparathyroidism Hypercalcemia Anticoagulant long-term use Precordial chest pain (Acute) (HFpEF) heart failure with preserved ejection fraction Paroxysmal A-fib Chronic heart failure with preserved ejection fraction (HFpEF) Labile hypertension Sinus pause Chest pain, atypical Hypertension (Acute) Hypothyroidism KIM (acute kidney injury) (Acute) Acute on chronic heart failure with preserved ejection fraction (HFpEF) Greater trochanteric bursitis of right hip Anxiety (Chronic) Chronic osteoarthritis (Chronic) GERD (gastroesophageal reflux disease) (Chronic) DJD of left shoulder Primary osteoarthritis, right shoulder Diarrhea (Acute) Urinary incontinence (Chronic) Syncope and collapse Arthritis of right shoulder region (Acute) Depression with anxiety (Acute) Insomnia (Acute) Ambulatory dysfunction (Acute) Arthritis Depression Medical History (Updated 04/25/24 @ 18:39 by Alicia Koch MD) Mobitz type 1 second degree AV block (10/2023) Somatic dysfunction of sacroiliac joint History of blood transfusion 2012 2/2 GASTRIC ULCER History of gastric ulcer 2012 Spinal stenosis Gastric ulcer Atrial fibrillation with rapid ventricular response (11/2022) Fall Moderate mitral regurgitation Transient ischemic attack (TIA) ~2013>REASON FOR PLAVIX Osteoarthritis Chronic back pain Dyslipidemia Chronic kidney disease stage 3 Hypertension Surgical History 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 History of cardiac cath NO STENTS History of coronary artery bypass graft 1998 (1 VESSEL) S/P epidural steroid injection History of esophagogastroduodenoscopy (EGD) S/p reverse total shoulder arthroplasty RT/LEFT History of abdominoplasty PANNICULECTOMY History of colonoscopy History of arthroplasty of right hip History of arthroplasty of left hip History of hysterectomy with oophorectomy History of arthroplasty of left shoulder History of tonsillectomy and adenoidectomy H/O bilateral salpingo-oophorectomy with hyter Family History Father , age 74 Allergic reaction Mother , 80s CHF (congestive heart failure) Other No family history of adverse response to anesthesia Social History Smoking Status: Never smoker Second Hand Exposure: No; Do You Dip or Chew Tobacco: No; Hx Alcohol Use: No Hx Substance Use: No Preferred Language: Albanian Communication Ability: Effective Visual Impairment: No Limitations Associate Professor Of Pathology Required: No Beliefs That Will Affect Care: Episcopalian Episcopalian Beliefs: Gnosticism marital status: Single Current Living Situation: Alone Current Living Situation Comment: [facility] Living How many Children do You have: 0 Feels Safe at Home: Yes Assistive Devices: Walker Allergies Allergies Allergy/AdvReac Type Severity Reaction Status Date / Time nitroglycerin AdvReac Severe "PROJECTILE Verified 01/29/23 15:15 VOMITTING" ergotamine AdvReac Intermediate vomiting Verified 01/29/23 15:15 Home Meds Home Medications Medication Instructions Recorded Confirmed apixaban 5 mg tablet (Eliquis) 5 mg PO BID 12/13/23 03/16/24 buspirone 10 mg tablet 10 mg PO BID 12/13/23 03/16/24 calcitriol 0.25 mcg capsule 0.25 mcg PO UD 12/13/23 03/16/24 pantoprazole 40 mg tablet,delayed 40 mg PO DAILY 12/13/23 03/16/24 release rosuvastatin 10 mg tablet 10 mg PO DAILY 12/13/23 03/16/24 losartan 25 mg tablet 25 mg PO DAILY 03/16/24 03/16/24 Previous Rx's Medication Instructions Recorded levothyroxine 75 mcg tablet 75 mcg PO DAILYBB #30 tabs 12/20/23 (Synthroid) ferrous sulfate 325 mg (65 mg 325 mg PO DAILY #30 tabs 03/24/24 iron) tablet (Feosol) gabapentin 100 mg capsule 100 mg PO TID #90 caps 03/24/24 lorazepam 0.5 mg tablet 0.25 mg (1/2 x 0.5 mg) PO TID #9 03/24/24 tabs melatonin 3 mg tablet 6 mg (2 x 3 mg) PO HS #30 tabs 03/24/24 metoprolol succinate 25 mg 12.5 mg (1/2 x 25 mg) PO QAM #30 03/24/24 tablet,extended release 24 hr tabs trazodone 100 mg tablet 100 mg PO HS #30 tabs 03/24/24 omeprazole 40 mg capsule,delayed 40 mg PO DAILY 4 weeks #28 caps 04/25/24 release Results & Data (ED) Vital Signs Vital Signs - 24 hr 04/25/24 17:30 04/25/24 17:35 04/25/24 17:35 Temperature 36.6 C Temperature Source Oral Pulse Rate 86 82 Respiratory Rate 17 25 H Respiratory Effort / Characteristics Non-Labored Spontaneous Respiratory Depth Normal Blood Pressure 178/125 H Blood Pressure Mean 142 Blood Pressure Position Semi-fowlers Pulse Oximetry 99 98 98 Oxygen Delivery Method Room Air Room Air Room Air Sepsis Recent Fever Within 48 Hours No Sepsis New/Unexplained Change in Mental Status N/A Sepsis Action Taken by Nursing No Action Required 04/25/24 17:44 Temperature Temperature Source Pulse Rate 77 Respiratory Rate Respiratory Effort / Characteristics Respiratory Depth Blood Pressure Blood Pressure Mean Blood Pressure Position Pulse Oximetry Oxygen Delivery Method Sepsis Recent Fever Within 48 Hours Sepsis New/Unexplained Change in Mental Status Sepsis Action Taken by Nursing Laboratory Data 04/25/24 17:35 04/25/24 17:35 Lab Results 04/25/24 Range/Units 17:35 WBC 5.40 (4.8-10.8) K/ul RBC 4.26 (4.20-5.40) M/uL Hgb 11.7 L (12.0-16.0) g/dl Hct 36.8 L (37.0-47.0) % MCV 86.4 (80.0-100.0) fL MCH 27.5 (25.0-34.0) pg MCHC 31.8 L (32.0-36.0) g/dL RDW Std Deviation 58.2 H (36.4-46.3) fL RDW Coeff of Howie 18.4 H (11.5-14.5) % Plt Count 192 (130-400) K/uL MPV 10.4 (9.4-12.4) fL Immature Gran % (Auto) 0.2 % Neut % (Auto) 56.8 % Lymph % (Auto) 28.0 % Polk % (Auto) 11.9 % Eos % (Auto) 2.2 % Baso % (Auto) 0.9 % Neut # (Auto) 3.07 (1.40-6.50) K/uL Lymph # (Auto) 1.51 (1.20-3.40) K/uL Polk # (Auto) 0.64 H (0.11-0.59) K/uL Eos # (Auto) 0.12 (0.00-0.50) K/uL Baso # (Auto) 0.05 (0.00-0.20) K/uL Immature Gran # (Auto) 0.01 (0.01-0.20) K/uL Sodium 139 (136-145) mmol/L Potassium 3.7 (3.5-5.1) mmol/L Chloride 107 (98-107) mmol/L Carbon Dioxide 23 (21-32) mmol/L Anion Gap 9 (3-11) BUN 15 (6-23) mg/dl Creatinine 1.07 (0.6-1.2) mg/dl Est Cr Clr Drug Dosing 34.4 ml/min eGFR 50.27 BUN/Creatinine Ratio 14.0 (10-20) Glucose 95 (70-99(Fasting)) mg/dl Calcium 10.3 (8.6-10.3) mg/dl Total Bilirubin 1.3 H (0.2-1.0) mg/dl AST 14 (13-39) U/L ALT 7 (7-52) U/L Alkaline Phosphatase 53 (34-104) U/L Troponin I High Sens 12.6 (0-14) pg/ml Total Protein 7.0 (6.0-8.3) gm/dl Albumin 3.8 (3.4-5.0) gm/dl Globulin 3.2 (2.5-4.0) gm/dl Albumin/Globulin Ratio 1.2 (0.9-2) Lipase 26 (11-82) U/L Discharge Plan Visit Data Chief Complaint: Chest Pain Stated Complaint: CHEST PAIN, SOB ED Provider: Alicia Koch Discharge Problem: Chest pain Forms Stand Alone Forms: [facility] Prescriptions Prescriptions: No Action omeprazole 40 mg capsule,delayed release(DR/EC) 40 mg PO DAILY 28 Days Qty: 28 0RF pantoprazole 40 mg tablet,delayed release (DR/EC) 40 mg PO DAILY buspirone 10 mg tablet 10 mg PO BID calcitriol 0.25 mcg capsule 0.25 mcg PO UD Rx Instructions: three times a week on MON, WED AND FRI rosuvastatin 10 mg tablet 10 mg PO DAILY Eliquis 5 mg tablet 5 mg PO BID levothyroxine [Synthroid] 75 mcg Tablet 75 mcg PO DAILYBB Qty: 30 0RF losartan 25 mg tablet 25 mg PO DAILY melatonin 3 mg Tablet 6 mg PO HS Qty: 30 0RF lorazepam 0.5 mg Tablet 0.25 mg PO TID Qty: 9 0RF trazodone 100 mg Tablet 100 mg PO HS Qty: 30 0RF gabapentin 100 mg Capsule 100 mg PO TID Qty: 90 0RF metoprolol succinate 25 mg Tablet Extended Release 24 Hr 12.5 mg PO QAM Qty: 30 0RF ferrous sulfate [Feosol] 325 mg (65 mg iron) tablet 325 mg PO DAILY Qty: 30 0RF Referrals Referrals: Gilbert Calloway MD [Primary Care Provider] -
[2024-04-25 18:13] LABS: Albumin Globulin Ratio 1.2 (0.9-2); Albumin Level 3.8 gm/dl (3.4-5.0); Bilirubin,Total 1.3 mg/dl (0.2-1.0); Calcium 10.3 mg/dl (8.6-10.3); Creatinine Clr Calc Pharmacy 34.4 ml/min; Globulin 3.2 gm/dl (2.5-4.0); Potassium 3.7 mmol/L (3.5-5.1)
[2024-04-25 18:19] LABS: Troponin I High Sensitivity 12.6 pg/ml (0-14)
--- NOTE | 2024-04-25 19:08 | History & Physical Report ---
Date of Service April 25, 2024 Assessment & Plan (1) Chest pain: Plan: 85-year-old female with history of coronary disease/CABG, CHF diastolic type, A- fib on Eliquis, mild aortic stenosis, hypertension, CKD stage III, GERD, anxiety, presenting with chest pain started this morning. Chest pain Rule out acute coronary syndrome History of CAD/CABG Troponin 13.4, second set of troponin pending EKG A-fib, no acute ischemia or infarct Continue usual Eliquis, metoprolol Possibly related to uncontrolled hypertension Add amlodipine 5 mg daily starting tonight Continue show metoprolol XL 25 mg p.o. daily Possibly related to moderate hiatal hernia Seen on CT chest angio today: 1. No pulmonary emboli. 2. Cardiomegaly with mild aneurysmal dilation of the ascending thoracic aorta, 4.0 cm. 3. Trace pleural effusions with mild bibasilar atelectasis. 4. Unchanged subpleural nodule within the right lower lobe favoring probable scarring. 5. Moderate-sized hiatal hernia with mid to distal esophageal wall thickening which may represent associated esophagitis. Usually on Protonix 40 mg p.o. daily Will initiate Protonix 40 mg IV twice daily today Other chronic medical problems: Heart failure with preserved ejection fraction, mild aortic stenosis, mild to moderate tricuspid agitation -Euvolemic Atrial fibrillation -Continue Eliquis and metoprolol CKD stage III -Stable GERD -Management per above Anxiety DVT prophylaxis Already on Eliquis CODE STATUS Full code Disposition Lives at home by herself History of Present Illness Chief Complaint: Chest pain that started this morning Primary Care Provider: Gilbert Calloway MD 85-year-old female with history of coronary disease/CABG, CHF diastolic type, A- fib on Eliquis, mild aortic stenosis, hypertension, CKD stage III, GERD, anxiety, presenting with chest pain started this morning. As per patient, she was making her coffee this morning at home when she started to have dull central chest discomfort, nonradiating, no associated dizziness, sweating, nausea. She was seen this morning at the ER, CT chest was negative for acute PE but did show moderate hiatal hernia. Patient was discharged from the ER however en route back to her home, the patient developed chest pain again and was brought by the ambulance back to the ER. At the ER, vital signs blood pressure 178/125, heart rate 86, 99% on room air, afebrile. Troponin 12.6, EKG A-fib, no signs of ischemia or infarct Hospitalist consulted for evaluation of chest pain. On exam, patient seen resting in bed, in good spirits, states she feels fine overall. States her chest pain has resolved. Adds she has been having intermittent chest pain at home, not necessarily related to exertion. Denies active shortness of breath, dizziness, palpitations, etc. Allergies Allergy/AdvReac Type Severity Reaction Status Date / Time nitroglycerin AdvReac Severe "PROJECTILE Verified 01/29/23 15:15 VOMITTING" ergotamine AdvReac Intermediate vomiting Verified 01/29/23 15:15 Home Medications Medication Instructions Recorded Confirmed Type apixaban 5 mg tablet (Eliquis) 5 mg PO BID 12/13/23 03/16/24 History buspirone 10 mg tablet 10 mg PO BID 12/13/23 03/16/24 History calcitriol 0.25 mcg capsule 0.25 mcg PO UD 12/13/23 03/16/24 History pantoprazole 40 mg tablet,delayed 40 mg PO DAILY 12/13/23 03/16/24 History release rosuvastatin 10 mg tablet 10 mg PO DAILY 12/13/23 03/16/24 History levothyroxine 75 mcg tablet 75 mcg PO DAILYBB #30 tabs 12/20/23 03/16/24 Rx (Synthroid) losartan 25 mg tablet 25 mg PO DAILY 03/16/24 03/16/24 History ferrous sulfate 325 mg (65 mg 325 mg PO DAILY #30 tabs 03/24/24 Rx iron) tablet (Feosol) gabapentin 100 mg capsule 100 mg PO TID #90 caps 03/24/24 Rx lorazepam 0.5 mg tablet 0.25 mg (1/2 x 0.5 mg) PO TID #9 03/24/24 Rx tabs melatonin 3 mg tablet 6 mg (2 x 3 mg) PO HS #30 tabs 03/24/24 Rx metoprolol succinate 25 mg 12.5 mg (1/2 x 25 mg) PO QAM #30 03/24/24 Rx tablet,extended release 24 hr tabs trazodone 100 mg tablet 100 mg PO HS #30 tabs 03/24/24 Rx omeprazole 40 mg capsule,delayed 40 mg PO DAILY 4 weeks #28 caps 04/25/24 Rx release Past Med/Surg History Problem List (Updated 04/25/24 @ 18:39 by Alicia Koch MD) Chest pain (Acute) Esophagitis (Acute) Tachypnea (Acute) Shortness of breath (Acute) Iron deficiency anemia Mild cognitive impairment Delirium due to another medical condition, acute, hyperactive Problems related to lack of adequate sleep Intractable nausea Chronic atrial fibrillation Anemia, chronic disease Acute renal failure superimposed on stage 3 chronic kidney disease Asymptomatic bradycardia Hypertension (Acute) SOB (shortness of breath) (Acute) Ascending aorta dilation Acute alteration in mental status (Acute) Confusion Costochondritis Elevated troponin (Acute) Weakness (Acute) SOB (shortness of breath) (Acute) History of coronary artery disease (Acute) Precordial chest pain (Acute) CAD (coronary artery disease) Hypophosphatemia Hypomagnesemia Acute on chronic diastolic CHF (congestive heart failure) Pneumonia (Acute) Sepsis due to pneumonia Hyperparathyroidism Hypercalcemia Anticoagulant long-term use Precordial chest pain (Acute) (HFpEF) heart failure with preserved ejection fraction Paroxysmal A-fib Chronic heart failure with preserved ejection fraction (HFpEF) Labile hypertension Sinus pause Chest pain, atypical Hypertension (Acute) Hypothyroidism KIM (acute kidney injury) (Acute) Acute on chronic heart failure with preserved ejection fraction (HFpEF) Greater trochanteric bursitis of right hip Anxiety (Chronic) Chronic osteoarthritis (Chronic) GERD (gastroesophageal reflux disease) (Chronic) DJD of left shoulder Primary osteoarthritis, right shoulder Diarrhea (Acute) Urinary incontinence (Chronic) Syncope and collapse Arthritis of right shoulder region (Acute) Depression with anxiety (Acute) Insomnia (Acute) Ambulatory dysfunction (Acute) Arthritis Depression Medical History (Updated 04/25/24 @ 18:39 by Alicia Koch MD) Mobitz type 1 second degree AV block (10/2023) Somatic dysfunction of sacroiliac joint History of blood transfusion 2012 2/2 GASTRIC ULCER History of gastric ulcer 2013 Spinal stenosis Gastric ulcer Atrial fibrillation with rapid ventricular response (11/2022) Fall Moderate mitral regurgitation Transient ischemic attack (TIA) ~2012>REASON FOR PLAVIX Osteoarthritis Chronic back pain Dyslipidemia Chronic kidney disease stage 3 Hypertension Surgical History 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 History of cardiac cath NO STENTS History of coronary artery bypass graft 1998 (1 VESSEL) S/P epidural steroid injection History of esophagogastroduodenoscopy (EGD) S/p reverse total shoulder arthroplasty RT/LEFT History of abdominoplasty PANNICULECTOMY History of colonoscopy History of arthroplasty of right hip History of arthroplasty of left hip History of hysterectomy with oophorectomy History of arthroplasty of left shoulder History of tonsillectomy and adenoidectomy H/O bilateral salpingo-oophorectomy with hyter Family History Father , age 74 Allergic reaction Mother , 80s CHF (congestive heart failure) Other No family history of adverse response to anesthesia Social History Smoking Status: Never smoker Second Hand Exposure: No; Do You Dip or Chew Tobacco: No; Hx Alcohol Use: No Hx Substance Use: No Preferred Language: Citizen Of [place] Communication Ability: Effective Visual Impairment: No Limitations Screw Supervisor Required: No Beliefs That Will Affect Care: Tenriism Tenriism Beliefs: Gnosticism marital status: Single Current Living Situation: Alone Current Living Situation Comment: [facility] Living How many Children do You have: 0 Feels Safe at Home: Yes Assistive Devices: Walker Review of Systems Review of Systems: all noted and negative except for above Physical Exam Physical Exam: General- oriented x 3,Forgetful, not in distress, speaks in sentences with no effort or accessory muscle use Head- atraumatic Eyes- PERRL, EOMI, anicteric ENT- oropharynx clear Neck- supple, no JVD, no adenopathy, no thyromegaly; carotids +2/2, no bruits appreciated Lungs- clear to auscultation bilaterally, no rales/wheezes Heart- normal rate, regular rhythm;Grade 2 out of 6 holosystolic murmur, no gallop, no rub appreciated Abdomen- normal bowel sounds, nondistended, soft, nontender, no masses or hepatosplenomegaly Extremities- no pretibial edema, no calf tenderness; peripheral pulses intact Neuro- alert, oriented x 3; CN 2-12 grossly intact; motor 5/5 bilaterally;sensation 100% on all extremities; no other gross focal neurologic deficits Skin- warm & dry Results & Data Results & Data Vital Signs (Past 12 Hours) Vital Signs Temp Pulse Pulse Resp BP BP Pulse Ox 04/25/24 18:36 92 H 17 164/123 H 98 04/25/24 17:44 77 04/25/24 17:35 82 25 H 98 04/25/24 17:35 98 04/25/24 17:30 36.6 C 86 17 178/125 H 99 O2 Del Method 04/25/24 18:36 Room Air 04/25/24 17:44 04/25/24 17:35 Room Air 04/25/24 17:35 Room Air 04/25/24 17:30 Room Air all noted and reviewed including below
[2024-04-25] MEDS ORDERED: CALCITRIOL 0.25 MCG CAPSULE PO SCH (19:30)
[2024-04-25] MEDS: APIXABAN 5 MG TABLET PO SCH (21:23)
[2024-04-25] MEDS: amLODIPine BESYLATE 5 MG TAB PO ONE (21:23)
[2024-04-25] MEDS: busPIRone 5 MG TAB PO SCH (21:23)
[2024-04-25] MEDS: traZODone HCL 100 MG TAB PO SCH (21:23)
[2024-04-25] MEDS: GABAPENTIN 100 MG CAP PO SCH (21:23)
[2024-04-25] MEDS: PANTOprazole 40 MG/10 ML SYR IV SCH (21:59)
[2024-04-25] MEDS: MELATONIN 3 MG TAB PO PRN (22:10)
[2024-04-26] MEDS: LEVOTHYROXINE SODIUM 75 MCG TABLET PO SCH (05:46)
[2024-04-26 07:36] LABS: Basophils # (auto) 0.04 K/uL (0.00-0.20); Basophils % (auto) 0.8 %; Eosinophils % (auto) 4.2 %; Hematocrit (blood only) 34.8 % (37.0-47.0); Hemoglobin 11.3 g/dl (12.0-16.0); Lymphocytes # (auto) 1.55 K/uL (1.20-3.40); Lymphocytes % (auto) 32.8 %; Mean Corpuscular Hemoglobin 28.2 pg (25.0-34.0); Mean Corpuscular Hgb Conc 32.5 g/dL (32.0-36.0); Mean Corpuscular Volume 86.8 fL (80.0-100.0); Mean Platelet Volume 9.6 fL (9.4-12.4); Monocytes # (auto) 0.63 K/uL (0.11-0.59); Monocytes % (auto) 13.3 %; Neutrophils # (auto) 2.31 K/uL (1.40-6.50); Neutrophils % (auto) 48.9 %; Platelet Count 168 K/uL (130-400); RDW Coefficient of Variation 18.5 % (11.5-14.5); RDW Standard Deviation 59.4 fL (36.4-46.3); Red Blood Count 4.01 M/uL (4.20-5.40); White Blood Count 4.73 K/ul (4.8-10.8)
[2024-04-26] MEDS: FUROSEMIDE 40 MG/4 ML VIAL IV ONE (07:47)
[2024-04-26 08:05] LABS: Albumin Globulin Ratio 1.2 (0.9-2); Albumin Level 3.6 gm/dl (3.4-5.0); BUN Creatinine Ratio 14.4 (10-20); Creatinine Clr Calc Pharmacy 32.9 ml/min; Potassium 3.7 mmol/L (3.5-5.1); Total Protein 6.6 gm/dl (6.0-8.3)
[2024-04-26] MEDS ORDERED: amLODIPine BESYLATE 5 MG TAB PO SCH (09:00)
[2024-04-26] MEDS ORDERED: METOPROLOL SUCC 25MG EXT REL TAB PO SCH (09:00)
[2024-04-26] MEDS: PANTOprazole 40 MG TAB PO SCH (09:29)
[2024-04-26] MEDS: METOPROLOL SUCC 25MG EXT REL TAB PO SCH (09:29)
[2024-04-26] MEDS: FERROUS SULFATE 325 MG TAB PO SCH (09:30)
[2024-04-26] MEDS: ROSUVASTATIN CALCIUM 10 MG TAB PO SCH (09:31)
--- NOTE | 2024-04-26 12:23 | Hospitalist Progress Note ---
Date of Service April 26, 2024 Assessment & Plan (1) Acute on chronic heart failure with preserved ejection fraction (HFpEF): (2) Hiatal hernia with GERD and esophagitis: (3) Hypertension, uncontrolled: (4) Anxiety: (5) Mild cognitive impairment: (6) Chronic atrial fibrillation: (7) Anticoagulant long-term use: (8) Hypothyroidism: (9) Chronic kidney disease stage 3: Plan Patient known to me from prior admission. Had similar symptomatology at that time determined to be multiple factorial etiology including hypertension, heart failure, anxiety, GI. Patient is ruled out for acute coronary syndrome with normal troponins this hospitalization Appears that her symptomatology is somewhat similar to previous. Some decompensated heart failure in setting uncontrolled hypertension. Chest pain associated with this in addition to her hiatal hernia and esophagitis this all is then exacerbates her ongoing underlying anxiety with mild cognitive disorder. Atrial fibrillation is well-controlled on metoprolol, continue Eliquis Patient did have bradycardia on metoprolol higher doses in the past. Will attempt to see if she can tolerate 25 mg of metoprolol here today and monitor on telemetry She did receive Norvasc last evening for blood pressure control this seems to pardo ve helped. Will continue that at this time IV Lasix x 1 dose today for evidence of some congestion and effusion on chest imaging, scheduled diuretics have been on hold due to the fact that she had ac jennifer kidney injury previously on diuretics. Switch to oral PPI for management of hiatal hernia and esophagitis Case management for return to previous living, has caregivers Sunday through Sunday based on previous documentation. Therapies. Admission and Anticipated Discharge Date Admission Date: April 25, 2024 Subjective Patient still saying she has some discomfort in her chest. Breathing however feels a little bit better. Physical Exam Physical Exam: Constitutional: Alert, no acute distress HEENT: Mucous membranes moist. Lungs: Decreased breath sounds, few crackles CV: S1-S2, irregular Abdomen: Soft, nontender, nondistended Extremities: No significant edema Neuro: No focal deficits Psych: Cooperative, normal mood, abnormal memory, anxious Results & Data Results & Data Vital Signs (Past 12 Hours) Vital Signs Temp Pulse Resp BP Pulse Ox O2 Del Method 04/26/24 11:15 36.8 C 88 14 164/90 H 98 Room Air 04/26/24 07:03 36.7 C 86 19 123/71 98 Room Air 04/26/24 03:15 37.0 C 82 18 141/73 H 95 Room Air Diagnostic Findings Reviewed imaging, laboratory and diagnostic studies. Pertinent findings as below. WBCs 4.7 Hemoglobin 0.3 Electrolytes stable Creatinine 1.1 Troponins negative times all sets BNP 476 (8) Hypothyroidism Hypothyroidism type: unspecified Qualified Code(s): E03.9 - Hypothyroidism, unspecified
[2024-04-26] MEDS: amLODIPine BESYLATE 5 MG TAB PO SCH (13:47)
[2024-04-26] MEDS: POTASSIUM CHLORIDE CRTAB 20 MEQ TABCR PO STA (22:12)
[2024-04-26] MEDS: ACETAMINOPHEN 325 MG TAB PO STA (22:12)
--- NOTE | 2024-04-26 22:49 | Electrocardiogram Report ---
Test Reason : Blood Pressure : */* mmHG Vent. Rate : 81 BPM Atrial Rate : * BPM P-R Int : * ms QRS Dur : 80 ms QT Int : 374 ms P-R-T Axes : * 40 8 degrees QTcB Int : 434 ms Atrial fibrillation Cannot rule out Anterior infarct (cited on or before 13-Dec-2023) Abnormal ECG When compared with ECG of 25-Apr-2024 09:25, Nonspecific T wave abnormality, improved in Inferior leads Confirmed by Michi Sahni ([id number]) on 04/26/2024 10:49:32 PM Referred By: REFERRED SELF Confirmed By: Michi Sahni
[2024-04-27 09:01] LABS: BUN Creatinine Ratio 20.4 (10-20); Calcium 10.3 mg/dl (8.6-10.3); Creatinine Clr Calc Pharmacy 25.7 ml/min; Potassium 4.4 mmol/L (3.5-5.1)
--- NOTE | 2024-04-27 13:24 | Hospitalist Progress Note ---
Date of Service April 27, 2024 Assessment & Plan (1) Acute on chronic heart failure with preserved ejection fraction (HFpEF): (2) Hiatal hernia with GERD and esophagitis: (3) Hypertension, uncontrolled: (4) Anxiety: (5) Mild cognitive impairment: (6) Chronic atrial fibrillation: (7) Anticoagulant long-term use: (8) Hypothyroidism: (9) Chronic kidney disease stage 3: Plan Patient is overall improved from symptoms that have brought her into the emergency department. Actually her blood pressure today is running low we will continue to observe. Patient however reports that she feels unable to return to her independent living. Communication with care management, is learned that what was thought that she had 5 hours of daily assistance is actually only 5 hours weekly of assistance. This in turn raises my suspicion that a lot of her hospitalizations is due to exacerbation of her anxiety and worry about her being able to manage in her own home. I discussed skilled rehab with the patient or possible personal care placement. She was agreeable to least discussing this with case management [facility] Monitor renal function Therapies Admission and Anticipated Discharge Date Admission Date: April 25, 2024 Subjective Patient concerned about going home. States that she is too weak to even ambulate about her apartment. Physical Exam Physical Exam: Constitutional: Alert HEENT: Mucous membranes moist. Lungs: decreased, no wheezes rales or rhonchi CV: S1-S2, irregular Abdomen: Soft, nontender, nondistended Extremities: No significant edema Neuro: No focal deficits, generalized weakness Psych: Cooperative, normal mood Results & Data Results & Data Vital Signs (Past 12 Hours) Vital Signs Temp Pulse Pulse Resp BP Pulse Ox O2 Del Method 04/27/24 12:00 36.6 C 91 H 16 97/68 L 97 Room Air 04/27/24 08:00 36.6 C 86 18 156/88 H 97 Room Air 04/27/24 07:30 77 04/27/24 03:14 36.5 C 83 17 153/85 H 96 Room Air Diagnostic Findings Reviewed imaging, laboratory and diagnostic studies. Pertinent findings as below. Reviewed echocardiogram report, normal ejection fraction Creatinine 1.42, increased but within previous ranges (8) Hypothyroidism Hypothyroidism type: unspecified Qualified Code(s): E03.9 - Hypothyroidism, unspecified
[2024-04-28] MEDS: MELATONIN 3 MG TAB PO STA (00:08)
[2024-04-28] MEDS: MELATONIN 3 MG TAB PO ONE (00:16)
[2024-04-28 07:51] LABS: BUN Creatinine Ratio 18.2 (10-20); Calcium 9.9 mg/dl (8.6-10.3); Creatinine Clr Calc Pharmacy 22.2 ml/min; Potassium 4.3 mmol/L (3.5-5.1)
--- NOTE | 2024-04-28 11:46 | Hospitalist Progress Note ---
Date of Service April 28, 2024 Assessment & Plan (1) Acute on chronic heart failure with preserved ejection fraction (HFpEF): (2) Hiatal hernia with GERD and esophagitis: (3) Hypertension, uncontrolled: (4) Anxiety: (5) Mild cognitive impairment: (6) Chronic atrial fibrillation: (7) Anticoagulant long-term use: (8) Hypothyroidism: (9) Chronic kidney disease stage 3: Plan Patient overall deconditioned and seems to be failing at living independently by herself with minimal support. Therapy evaluation Case management to assist possible skilled rehab placement Blood pressure is well-controlled, continue current antihypertensive regimen Continue PPI for hiatal hernia Continue other medical interventions. Increase BuSpar for anxiety Admission and Anticipated Discharge Date Admission Date: April 25, 2024 Subjective No acute issues overnight, definitely does not remember conversation yesterday. She states she feels that there is something "wrong." Physical Exam Physical Exam: Constitutional: Asleep, easily awakened HEENT: Mucous membranes moist. Lungs: Clear to auscultation, decreased, no wheezes rales or rhonchi CV: S1-S2, irregular, murmur Abdomen: Soft, nontender, nondistended Extremities: No significant edema Neuro: No focal deficits Psych: Cooperative, anxious Results & Data Results & Data Vital Signs (Past 12 Hours) Vital Signs Temp Pulse Resp BP Pulse Ox O2 Del Method 04/28/24 11:25 36.5 C 62 18 122/78 99 Room Air 04/28/24 07:35 36.5 C 74 18 124/78 97 Room Air Diagnostic Findings Reviewed imaging, laboratory and diagnostic studies. Pertinent findings as below. Electrolytes stable (8) Hypothyroidism Hypothyroidism type: unspecified Qualified Code(s): E03.9 - Hypothyroidism, unspecified
[2024-04-28] MEDS: busPIRone 15 MG TAB PO SCH (20:38)
[2024-04-28] MEDS: MELATONIN 3 MG TAB PO PRN (21:31)
[2024-04-29 06:35] LABS: BUN Creatinine Ratio 21.6 (10-20); Calcium 9.9 mg/dl (8.6-10.3); Creatinine Clr Calc Pharmacy 23.9 ml/min; Potassium 4.1 mmol/L (3.5-5.1)
--- NOTE | 2024-04-29 13:42 | Hospitalist Progress Note ---
Date of Service April 29, 2024 Assessment & Plan (1) Acute on chronic heart failure with preserved ejection fraction (HFpEF): (2) Hiatal hernia with GERD and esophagitis: (3) Hypertension, uncontrolled: (4) Anxiety: (5) Mild cognitive impairment: (6) Chronic atrial fibrillation: (7) Anticoagulant long-term use: (8) Hypothyroidism: (9) Chronic kidney disease stage 3: Plan Patient in a compensated state. BuSpar was increased yesterday. Increase melatonin and trazodone for better sleep Reviewed case management notes, center care has accepted, awaiting insurance authorization. Admission and Anticipated Discharge Date Admission Date: April 25, 2024 Subjective Patient states that she has not slept well the past couple nights but otherwise no acute complaints. Physical Exam Physical Exam: Constitutional: Alert, nontoxic HEENT: Mucous membranes moist. Lungs: Clear to auscultation, decreased, no wheezes rales or rhonchi CV: S1-S2, irregular, systolic murmur Abdomen: Soft, nontender, nondistended Extremities: No significant edema Neuro: No focal deficits Psych: Cooperative, slightly less anxious Results & Data Results & Data Vital Signs (Past 12 Hours) Vital Signs Temp Pulse Resp BP Pulse Ox O2 Del Method 04/29/24 07:03 36.5 C 72 18 153/82 H 98 Room Air Diagnostic Findings Reviewed imaging, laboratory and diagnostic studies. Pertinent findings as below. Creatinine 1.53, improved (8) Hypothyroidism Hypothyroidism type: unspecified Qualified Code(s): E03.9 - Hypothyroidism, unspecified
[2024-04-29] MEDS: ACETAMINOPHEN 325 MG TAB PO PRN (18:36)
[2024-04-29 19:53] VITALS: RESP 18; TEMP 97.7
[2024-04-29] MEDS: APIXABAN 2.5 MG TAB PO SCH (20:18)
[2024-04-29] MEDS: traZODone HCL 50 MG TAB PO SCH (22:11)
[2024-04-29] MEDS: MELATONIN 3 MG TAB PO SCH (22:11)
[2024-04-30 08:23] VITALS: O2SAT 96
--- NOTE | 2024-04-30 10:15 | Discharge Summary ---
Date of Service April 30, 2024 Admission HPI Per Admitting Provider 85-year-old female with history of coronary disease/CABG, CHF diastolic type, A- fib on Eliquis, mild aortic stenosis, hypertension, CKD stage III, GERD, anxiety, presenting with chest pain started this morning. As per patient, she was making her coffee this morning at home when she started to have dull central chest discomfort, nonradiating, no associated dizziness, sweating, nausea. She was seen this morning at the ER, CT chest was negative for acute PE but did show moderate hiatal hernia. Patient was discharged from the ER however en route back to her home, the patient developed chest pain again and was brought by the ambulance back to the ER. At the ER, vital signs blood pressure 178/125, heart rate 86, 99% on room air, afebrile. Troponin 12.6, EKG A-fib, no signs of ischemia or infarct Hospitalist consulted for evaluation of chest pain. On exam, patient seen resting in bed, in good spirits, states she feels fine overall. States her chest pain has resolved. Adds she has been having intermittent chest pain at home, not necessarily related to exertion. Denies active shortness of breath, dizziness, palpitations, etc. Admission Exam Per Admitting Provider General- oriented x 3,Forgetful, not in distress, speaks in sentences with no effort or accessory muscle use Head- atraumatic Eyes- PERRL, EOMI, anicteric ENT- oropharynx clear Neck- supple, no JVD, no adenopathy, no thyromegaly; carotids +2/2, no bruits appreciated Lungs- clear to auscultation bilaterally, no rales/wheezes Heart- normal rate, regular rhythm;Grade 2 out of 6 holosystolic murmur, no gallop, no rub appreciated Abdomen- normal bowel sounds, nondistended, soft, nontender, no masses or hepatosplenomegaly Extremities- no pretibial edema, no calf tenderness; peripheral pulses intact Neuro- alert, oriented x 3; CN 2-12 grossly intact; motor 5/5 bilaterally;sensation 100% on all extremities; no other gross focal neurologic deficits Skin- warm & dry Principal Diagnosis 1) Acute on chronic heart failure with preserved ejection fraction (HFpEF): (2) Hiatal hernia with GERD and esophagitis: (3) Hypertension, uncontrolled: (4) Anxiety: (5) Mild cognitive impairment: (6) Chronic atrial fibrillation: (7) Anticoagulant long-term use: (8) Hypothyroidism: (9) Chronic kidney disease stage 3: Discharge Exam Constitutional: WD/WN elderly F in NAD HEENT: NC/AT. Mucous membranes moist. Lungs: Clear to auscultation, decreased, no wheezes rales or rhonchi CV: S1-S2, irregular, systolic murmur Abdomen: Soft, nontender, nondistended Extremities: No significant edema, moves extremities Neuro: awake, alert, speech fluent, no facial asymmetry, moves extremities Discharge Data Allergies Allergy/AdvReac Type Severity Reaction Status Date / Time nitroglycerin AdvReac Severe "PROJECTILE Verified 01/29/23 15:15 VOMITTING" ergotamine AdvReac Intermediate vomiting Verified 01/29/23 15:15 Consultations 04/25/24 18:05 ED Decision to Admit Stat Hospital Course (1) Acute on chronic heart failure with preserved ejection fraction (HFpEF): (2) Hiatal hernia with GERD and esophagitis: (3) Hypertension, uncontrolled: (4) Anxiety: (5) Mild cognitive impairment: (6) Chronic atrial fibrillation: (7) Anticoagulant long-term use: (8) Hypothyroidism: (9) Chronic kidney disease stage 3: Plan Chest pain: Plan: 85-year-old female with history of coronary disease/CABG, CHF diastolic type, A- fib on Eliquis, mild aortic stenosis, hypertension, CKD stage III, GERD, anxiety, presenting with chest pain started this morning. Chest pain Rule out acute coronary syndrome Mild Acute Heart failure with preserved ejection fraction History of CAD/CABG EKG A-fib, no acute ischemia or infarct Continue Eliquis, metoprolol Eliquis dose was adjusted based on age and weight and renal function Possibly related to uncontrolled hypertension Added amlodipine 5 mg daily Continue metoprolol XL 25 mg p.o. daily Possibly related to moderate hiatal hernia Seen on CT chest angio: 1. No pulmonary emboli. 2. Cardiomegaly with mild aneurysmal dilation of the ascending thoracic aorta, 4.0 cm. 3. Trace pleural effusions with mild bibasilar atelectasis. 4. Unchanged subpleural nodule within the right lower lobe favoring probable scarring. 5. Moderate-sized hiatal hernia with mid to distal esophageal wall thickening which may represent associated esophagitis. Usually on Protonix 40 mg p.o. daily -> increased to BID Other chronic medical problems: Mild aortic stenosis, mild to moderate tricuspid agitation Atrial fibrillation -Continue Eliquis and metoprolol CKD stage III -Stable GERD -Management per above Anxiety- BuSpar was increased. Increased melatonin and trazodone for better sleep DVT prophylaxis Already on Eliquis CODE STATUS Full code Dispo: Center care Total Time Total Time Spent Total Time Spent (In Minutes): 40 Discharge Plan Discharge Items Patient Disposition: Transfer Residential Fac Reason For Visit: CHEST PAIN Discharge Diagnosis: 1) Acute on chronic heart failure with preserved ejection fraction (HFpEF): (2) Hiatal hernia with GERD and esophagitis: (3) Hypertension, uncontrolled: (4) Anxiety: (5) Mild cognitive impairment: (6) Chronic atrial fibrillation: (7) Anticoagulant long-term use: (8) Hypothyroidism: (9) Chronic kidney disease stage 3: Activity: Resume your previous activity Non-emergency contact: Primary Care Provider Call non-emergency contact if: your symptoms worsen Follow-up/Referrals: Gilbert Calloway MD [Primary Care Provider] - Diet: Heart Healthy Diet Texture: Easy to Chew Natanael Attending Provider Instructions: Follow up with your primary care physician closely, within 1-2 weeks. Continue to follow with your providers to manage your various medical issues. Continue to work with therapies to improve your strength. You were started on amlodipine - to help your blood pressure. Your pantoprazole was increased to twice a day help with acid reflux symptoms. Take your medications as prescribed and discuss any concerns / questions about your medications with your providers. Natanael Limo Driver Provider Instructions: Call your Primary Care doctor if any of the following symptoms or problems start or get worse: * Shortness of breath or difficulty breathing * Wake up at night short of breath * Chest pain * Cough * Swelling of your hands, feet, or legs * More fatigued or tired with your normal activity * Palpitations - sudden fast heart beats WEIGHT * Weigh yourself every morning after using the bathroom. * Use the same scale. * Wear the same amount of clothing. * Write your weight down on a chart. * Call your Primary Care doctor if you gain more than 2-3 pounds in 1-2 days. MEDICATIONS * Use this discharge instruction sheet for medication instructions. * Take your medications at the time your doctor ordered. * Do not skip a dose of your medicines. * If you miss a dose of medicine, take it as soon as possible, but DO NOT DOUBLE A DOSE. * Read your medicine information when you get home. * Know all of the side effects of your medicine. If in doubt, ask your pharmacist * Call your Primary Care doctor's office if you have any side effects. * Be sure all of your doctors know what medicine and herbs you take (including cold, flu, and herbal medicine). Take the following with you to your follow-up doctor appointments: * Weight Chart * Medication List * List of questions Do not drink excessive alcohol, beer or wine. Pending Studies at Discharge: No Stand-Alone Forms: [facility] Skilled Items Patient informed of condition?: Yes DNR: No Discharge Level of Care: Skilled Communicable Disease: No Discharge Prognosis: Stable Lines: None Urinary Catheter: No Medications and DC Order Prescriptions: New trazodone 50 mg Tablet 150 mg PO HS Qty: 90 0RF amlodipine [Norvasc] 5 mg Tablet 5 mg PO QAM Qty: 30 0RF pantoprazole 40 mg Tablet,Delayed Release (Dr/Ec) 40 mg PO BID Qty: 60 0RF metoprolol succinate 25 mg Tablet Extended Release 24 Hr 25 mg PO QAM Qty: 30 0RF buspirone 15 mg Tablet 15 mg PO BID Qty: 60 0RF Eliquis 2.5 mg Tablet 2.5 mg PO BID Qty: 60 0RF melatonin 10 mg capsule 10 mg PO HS Qty: 30 0RF Continued levothyroxine [Synthroid] 75 mcg Tablet 75 mcg PO DAILYBB Qty: 30 0RF ferrous sulfate [Feosol] 325 mg (65 mg iron) tablet 325 mg PO DAILY Qty: 30 0RF rosuvastatin 10 mg tablet 10 mg PO DAILY Qty: 30 0RF calcitriol 0.25 mcg capsule 0.25 mcg PO UD Qty: 30 0RF Rx Instructions: three times a week on MON, WED AND FRI Changed gabapentin 100 mg capsule 100 mg PO BID Qty: 60 0RF Discontinued pantoprazole 40 mg tablet,delayed release (DR/EC) 40 mg PO DAILY buspirone 10 mg tablet 10 mg PO BID Eliquis 5 mg tablet 5 mg PO BID trazodone 100 mg Tablet 100 mg PO HS Qty: 30 0RF metoprolol succinate 25 mg Tablet Extended Release 24 Hr 12.5 mg PO QAM Qty: 30 0RF Discharge Orders: Discharge Order- CHF (Routine); Ordered 04/30/24 Ordered By: Paras Phan Admission Data Admit Date/Time: 04/25/24 18:21 Attending Provider: Paras Phan Admit Provider: Giuseppe May Primary Care Provider: Gilbert Calloway Other Providers: Giuseppe May; [place]; [facility]; Brendon Ardon
[2024-04-30 10:16] VITALS: BP 106/60; PULSE 72
== END 2024-04-30 12:32 | DRG 291 ==
LOC: ED 17:24 → 2S 18:21 → SUATTDRO 18:21 → 2S 20:22 → 3N 04-27 15:25

== ENCOUNTER 2024-05-18 17:58 | Inpatient (IN) ==
--- OUTSIDE RECORDS SUMMARY | 2024-05-18 18:02 | External Medical Summary | Summary of Care ---
Author Name Unknown Organization [facility] Address [address] [place] [address] Phone [phone] Care Team Providers Care Educational Program Director Name Role Phone Gilbert Calloway MD Primary Care Provide r Reason for Visit * Reason Onset Date Comments Medication Refill 05/13/2024 Encounter Details Date Type Department Care Team (Late st Contact Info) Description 05/13/2024 Refill Family Medicine [address] [place] [phone] Gilbert Calloway MD [address] [place] [address] [place] [id number] DDD (degenerative disc disease), lumbar; ANXIETY STATE NOS Allergies Active Allergy Reactions Criticality Noted Date Comments Ergotamine 03/01/2000 vomit Nitroglycerin 03/14/2007 vomitting documented as of this encounter (statuses as of 05/13/2024) Medications Acetaminophen 500 MG Oral Tablet (Tylenol)Indicatio [...] bedtime. 180 Tablet 2 11/22/19 24 Active Loperamide HCl 2 MG Oral Capsule (Imodium)Indicatio ns:Chronic diarrhea TAKE ONE CAPSULE BY MOUTH FOUR TIMES DAILY NEEDED 60 Capsule 1 11/22/19 24 Active Rosuvastatin Calcium 10 MG Oral Tablet (Crestor)Indicatio ns:Dyslipidemia, goal LDL below 100 Take 1 Tablet by mouth at bedtime. 90 Tablet 2 11/22/19 24 Active Levothyroxine Sodium 75 MCG Oral Tablet (Levoxyl) Take 1 Tablet by mouth daily first thing in the morning. (at least 30 min prior to breakfast or other meds) 90 Tablet 3 01/18/20 24 Active Ondansetron HCl 4 MG Oral Tablet (Zofran)Indication s:Nausea TAKE ONE TABLET BY MOUTH EVERY 6 HOURS NEEDED FOR nausea 30 Tablet 2 03/14/19 25 Active Gabapentin 100 MG Oral Capsule (Neurontin)Indicat ions:DDD (degenerative disc disease), lumbar Take 1 Capsule by mouth in the morning and 1 Capsule before bedtime. 90 Capsule 1 03/26/19 25 Active Ferrous Sulfate 325 (65 Fe) MG Oral Tablet (Feosol)Indication s:Anemia in stage 3b chronic kidney disease (HCC) Take 1 Tablet by mouth in the morning and 1 Tablet before bedtime. 60 Tablet 11 03/26/19 25 Active traZODone HCl 150 MG Oral Tablet (Desyrel)Indicatio ns:Persistent insomnia Take 1 Tablet by mouth at bedtime. 90 Tablet 1 04/11/19 25 Active Calcitriol 0.25 MCG Oral Capsule (Rocaltrol) TAKE 1 CAPSULE ON MONDAYS, WEDNESDAYS, AND FRIDAYS 45 Capsule 1 04/17/19 25 Active Metoprolol Succinate ER 25 MG Oral Tablet Extended Release 24 Hour (toPROL XL)Indications:DDD (degenerative disc disease), lumbar Take 1/2 tab daily 45 Tablet 3 05/14/19 25 Active busPIRone HCl 10 MG Oral Tablet (Buspar)Indication s:Anxiety state Take 1 Tablet by mouth in the morning and 1 Tablet before bedtime. 60 Tablet 5 05/14/19 25 Active busPIRone HCl 10 MG Oral Tablet (Buspar)Indication s:Anxiety state TAKE ONE TABLET TWICE DAILY 60 Tablet 5 03/11/19 25 025 Discontin ued(Refil l) Metoprolol Succinate ER 25 MG Oral Tablet Extended Release 24 Hour (toPROL XL)Indications:DDD (degenerative disc disease), lumbar Take 1/2 tab daily 45 Tablet 3 03/26/19 25 025 Discontin ued(Refil l) documented as of this encounter (statuses as of 05/13/2024) Active Problems Problem Noted Date Diagnosed Date [...] fibrillation 03/01/2021 Overview (03/09/2021): new onset, [facility] on apixaban Assessment & Plan (01/14/2024 10:32 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[place] co ronary artery of [place] heart without angina pectoris Assessment & Plan [...] as of this encounter (statuses as of 05/13/2024) Resolved Problems Problem Noted Date Diagnosed Date [...] 06/26/2017 Overview (07/15/2014): hgb 7.4 admitted [facility] - [...] as of this encounter (statuses as of 05/13/2024) Immunizations Name Administration Dates Next Due COVID-19 [...] No 01/22/2024 Does the household have a [facility] source of income? (Household - for ages [...] ages 0-17 years) Not on file 01/22/2024 Food Insecurity Answer Date Recorded Within the past 12 months, y ou worried that your food would run out before you got the money to buy more. Never true 01/22/20 24 Within the past 12 months, t he food you bought just didn't last and you didn't have money to get more. Never true 01/22/2024 Do you need food for this week? No 01/22/2024 Comments No Sex and Gender Information Value Date Recorded Sex Assigned at Female 12/11/2022 6:31 PM EDT Legal Sex Female 5:53 AM EST Gender Identity Female 12/11/2022 6:31 PM EDT Sexual Orientation Straight 05/16/2023 10 :36 AM EDT documented as of this encounter Miscellaneous Notes * Telephone Encounter - Gilbert Calloway MD - 05/13/2024 1:05 PM EDT Signed Prescriptions: Disp Refills Metoprolol Succinate ER 25 MG Oral Tablet *45 Tab*3 Sig: Take 2 tab daily Authorizing Provider: GILBERT CALLOWAY busPIRone HCl 10 MG Oral Tablet (Buspar) 60 Tab*5 Sig: Take 1 Tablet by mouth in the morning and 1 Tablet before bedtime. Authorizing Provider: GILBERT CALLOWAY * Telephone Encounter - Maylin Barfield RN - 05/13/2024 1:02 PM EDTPending Prescriptions: Disp Refills Metoprolol Succinate ER 25 MG Oral Tablet *45 Tab*3 Sig: Take 1/2 tab daily busPIRone HCl 10 MG Oral Tablet (Buspar) 60 Tab*5 Sig: Take 1 Tablet by mouth in the morning and 1 Tablet before bedtime. * Telephone Encounter - Amy Joyner OSA - 05/13/2024 12:42 PM EDT Did you pend patient's preferred pharmacy and medication before forwarding?yes Pharmacy: [facility], [facility]-[address] [place] Pending Prescriptions: Disp Refills Metoprolol Succinate ER 25 MG Oral Tablet*45 Tab*3 Sig: Take 1/2 tab daily busPIRone HCl 10 MG Oral Tablet (Buspar) 60 Tab*5 Sig: Take 1 Tablet by mouth in the morning and 1 Tablet before bedtime. Last Visit: 12/24/2023 (in office), 01/10/2023 (telemedicine) Next Visit: 06/30/2024 If no future appointments scheduled, and last appointment is greater than a year ago, please schedule patient for a follow-up appointment Last date the medication was ordered: 03.11.24 Is this request for a controlled substance?No Urine Drug Screen:No results found. However, due to the size of the patient record, not all encounters were searched. Please check Results Review for a complete set of results. Patient Phone Numbers Labs: Lab Results Component [...] Care Team (Late st Contact Info) Description 06/30/2024 10:00 AM EDT Office Visit Family Medicine [address] [place] [phone] Gilbert Calloway MD [address] [place] [address] [place] [phone] 07/10/2024 2:20 PM EDT Office Visit [facility] [address] [place] [phone] Tirso Shah MD [address] [place] [address] Health Maintenance Due Date Last Done Comments DTap/Tdap Vaccines (1 - Tdap) 11/15/1957 Adult Wellness Visit 2002 Albumin/Creatinine Ratio 07/28/2023 023, 06/09/2020, 03/13/2019, Additional history exists COVID-19 Vaccine ( season) 2023 01/04/2021, 04/19/2020, 04/04/2020, Additional history exists TSH 12/05/2024 12/06/2023, 10/21, 07/27/2022, Additional history exists CKD HGB USE SMARTSET 47872 12/20/202412/20, 12/06/2023, 11/16/2023, Additional history exists CKD PHOS USE SMARTSET 99317 12/20/202402/2023, 11/16/2023, 10/04/2022, Additional history exists Depression [...] on patient's age to complete this topic Meningitis B Vaccine (Bexsero/Trumemba) Aged Out No longer eligible based on [...] Anxiety state Anxiety state, unspecified Atherosclerosis of [place] coronary artery of [place] heart without angina pectoris Acquired hypothyroidism Unspecified hypothyroidism Dyslipidemia, goal LDL below 100 Other and unspecified hyperlipidemia Aortic ectasia, thoracic (HCC) Thoracic aortic ectasia Chronic atrial fibrillation (HCC) Atrial fibrillation Benign hypertension with stage 3b chronic kidney disease ([facility]) Advanced care planning/counseling discussion- Primary Other specified counseling Atherosclerosis of [place] coronary artery of [place] heart without angina pectoris Chronic atrial fibrillation [...] in partial remission ([facility]) Osteoarthritis of spine with radiculopathy, lumbar region DDD (degenerative disc disease), lumbar Degeneration of lumbar or lumbosacral intervertebral disc Advanced care planning/counseling discussion Other specified counseling DDD (degenerative disc disease), lumbar Degeneration of lumbar or lumbosacral intervertebral disc ANXIETY STATE NOS Anxiety state, unspecified documented in this encounter Care Teams Educational Program Director Relationship Specialty Start Date End Date Gilbert Calloway MD [address] [place] [address] [place] [phone] PCP - General Family Medicine 07/30/23 documented as of this encounter
--- OUTSIDE RECORDS SUMMARY | 2024-05-18 18:02 | External Medical Summary | Summary of Care ---
Author Name Unknown Organization [facility] Address [address] [place] [address] Phone [phone] Care Team Providers Care Public Stenographer Name Role Phone Gilbert Calloway MD Primary Care Provide r Reason for Visit * Reason Onset Date Comments [facility]: Maintenance 05/07/2024 Encounter Details Date Type Department Care Team (Late st Contact Info) Description 05/07/2024 Telephone [facility], [facility] Region [address] [place] [facility] [place] [address] Darling Roe RN [address] [facility] [place] [id number] [facility]: Maintenance Allergies Active Allergy Reactions Criticality Noted Date Comments Ergotamine 03/01/2000 vomit Nitroglycerin 03/14/2007 vomitting documented as of this encounter (statuses as of 05/07/2024) Medications Acetaminophen 500 MG Oral Tablet (Tylenol)Indicatio [...] before bedtime. 180 Tablet 2 4 Active Loperamide HCl 2 MG Oral Capsule (Imodium)Indicatio ns:Chronic diarrhea TAKE ONE CAPSULE BY MOUTH FOUR TIMES DAILY NEEDED 60 Capsule 1 4 Active Rosuvastatin Calcium 10 MG Oral Tablet (Crestor)Indicatio ns:Dyslipidemia, goal LDL below 100 Take 1 Tablet by mouth at bedtime. 90 Tablet 2 4 Active Levothyroxine Sodium 75 MCG Oral Tablet (Levoxyl) Take 1 Tablet by mouth daily first thing in the morning. (at least 30 min prior to breakfast or other meds) 90 Tablet 3 4 Active busPIRone HCl 10 MG Oral Tablet (Buspar)Indication s:Anxiety state TAKE ONE TABLET TWICE DAILY 60 Tablet 5 5 Active Ondansetron HCl 4 MG Oral Tablet (Zofran)Indication s:Nausea TAKE ONE TABLET BY MOUTH EVERY 6 HOURS NEEDED FOR nausea 30 Tablet 2 5 Active Gabapentin 100 MG Oral Capsule (Neurontin)Indicat ions:DDD (degenerative disc disease), lumbar Take 1 Capsule by mouth in the morning and 1 Capsule before bedtime. 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 60 Tablet 11 5 Active Metoprolol Succinate ER 25 MG Oral Tablet Extended Release 24 Hour (toPROL XL)Indications:DDD (degenerative disc disease), lumbar Take 1/2 tab daily 45 Tablet 3 5 Active traZODone HCl 150 MG Oral Tablet (Desyrel)Indicatio ns:Persistent insomnia Take 1 Tablet by mouth at bedtime. 90 Tablet 1 5 Active Calcitriol 0.25 MCG Oral Capsule (Rocaltrol) TAKE 1 CAPSULE ON MONDAYS, WEDNESDAYS, AND FRIDAYS 45 Capsule 1 5 Active documented as of this encounter (statuses as of 05/07/2024) Active Problems Problem Noted Date Diagnosed Date [...] daily. Suspect she is gaining real wt. [facility] nursing continue to monitor. Spondylosis [...] atrial fibrillation 03/01/2021 Overview (03/09/2021): new onset, [facility] on apixaban Assessment & Plan (01/14/2024 10:32 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[place] co ronary artery of [place] heart without angina pectoris Assessment & Plan [...] as of this encounter (statuses as of 05/07/2024) Resolved Problems Problem Noted Date Diagnosed Date [...] 06/30/2014 06/26/2017 Overview (07/15/2014): hgb 7.4 admitted [facility] [...] as of this encounter (statuses as of 05/07/2024) Immunizations Name Administration Dates Next Due COVID-19 [...] Telephone Encounter - Darling Roe RN - 05/07/2024 2:56 PM EDT Call received from Margot DE ANDA. Calling to check if pt is enrolled in [facility]. Made her aware that ptwas graduated from [facility] due to non compliance documented in this encounter Plan of Treatment Upcoming Encounters Date Type Department Care Team (Late st Contact Info) Description 06/30/2024 10:00 AM EDT Office Visit Family [address] [phone] Gilbert Calloway MD [address] [place] [address] [place] [phone] 07/10/2024 2:20 PM EDT Office Visit Nephrology, [facility] [address] [facility] [place] [address] Tirso Shah MD [address] [facility] [place] [address] Health Maintenance Due Date Last Done Comments DTap/Tdap Vaccines (1 - Tdap) 11/15/1957 Adult Wellness Visit 2002 Albumin/Creatinine Ratio 07/28/2023 023, 06/09/2020, 03/13/2019, Additional history exists COVID-19 Vaccine ( season) 2023 01/04/2021, 04/19/2020, 04/04/2020, Additional history exists TSH 12/05/2024 12/06/2023, 10/21, 07/27/2022, Additional history exists CKD HGB USE SMARTSET 12181 12/20/202412/20, 12/06/2023, 11/16/2023, Additional history exists CKD PHOS USE SMARTSET 60483 12/20/202402/2023, 11/16/2023, 10/04/2022, Additional history exists Depression [...] as of this encounter Care Teams Public Stenographer Relationship Specialty Start Date End Date Gilbert Calloway MD [address] [place] [address] [place] [phone] PCP - General Family Medicine 07/30/23 documented as of this encounter
--- OUTSIDE RECORDS SUMMARY | 2024-05-18 18:02 | External Medical Summary | Summary of Care ---
Author Name Unknown Organization [facility] Address [address] [place] [address] Phone [phone] Care Team Providers Care Open Soaper Tender Name Role Phone Gilbert Calloway MD Primary Care Provide r Reason for Visit * Reason Onset Date Comments Scheduling 05/16/2024 All Phone number s in chart are disconnected.Calling to offer sooner appt of 05/23 Encounter Details Date Type Department Care Team (Late st Contact Info) Description 05/16/2024 Telephone NephrologyCar[facility] [place] [address] [place] [address] Tirso Shah MD [address] [place] [address] Scheduling (All Phone numbers in chart are... Allergies Active Allergy Reactions Criticality Noted Date Comments Ergotamine 03/01/2000 vomit Nitroglycerin 03/14/2007 vomitting documented as of this encounter (statuses as of 05/16/2024) Medications Acetaminophen 500 MG Oral Tablet (Tylenol)Indicatio ns:Generalized osteoarthritis Take 1 Tablet by mouth in the morning and 1 Tablet at noon and 1 Tablet before bedtime. 100 Tablet 4 Active Advanced Probiotic Oral Capsule Take 1 Capsule by mouth in the morning. 30 Capsule 4 Active Pantoprazole Sodium 40 MG Oral [...] before bedtime. 60 Tablet 11 5 Active Calcitriol 0.25 MCG Oral Capsule (Rocaltrol) TAKE 1 CAPSULE ON MONDAYS, WEDNESDAYS, AND FRIDAYS 45 Capsule 1 5 Active Metoprolol Succinate ER 25 MG Oral Tablet Extended Release 24 Hour (toPROL XL)Indications:DDD (degenerative disc disease), lumbar Take 1/2 tab daily 45 Tablet 3 5 Active busPIRone HCl 10 MG Oral Tablet (Buspar)Indication s:Anxiety state Take 1 Tablet by mouth in the morning and 1 Tablet before bedtime. 60 Tablet 5 5 Active traZODone HCl 150 MG Oral Tablet (Desyrel)Indicatio ns:Persistent insomnia Take 1 Tablet by mouth at bedtime. 90 Tablet 1 5 Active Apixaban 5 MG Oral Tablet (Eliquis) Take 1 Tablet by mouth in the morning and 1 Tablet before bedtime. 180 Tablet 3 5 Active documented as of this encounter (statuses as of 05/16/2024) Active Problems Problem Noted Date Diagnosed Date [...] daily. Suspect she is gaining real wt. [facility] nursing continue to monitor. 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 pectoris Assessment & Plan [...] as of this encounter (statuses as of 05/16/2024) Resolved Problems Problem Noted Date Diagnosed Date [...] 06/30/2014 06/26/2017 Overview (07/15/2014): hgb 7.4 admitted [facility] [...] as of this encounter (statuses as of 05/16/2024) Immunizations Name Administration Dates Next Due COVID-19 [...] AM EDT Office Visit Family Medicine [address] [place] [phone] Gilbert Calloway MD [address] [place] [address] [place] [phone] 07/10/2024 2:20 PM EDT Office Visit NephCaroline roper [address] [place] [address] Tirso Shah MD [address] [place] [address] Health Maintenance Due Date Last Done Comments DTap/Tdap Vaccines (1 - Tdap) 11/15/1957 Adult Wellness Visit 2002 Albumin/Creatinine Ratio 07/28/2023 023, 06/09/2020, 03/13/2019, Additional history exists COVID-19 Vaccine ( season) 2023 01/04/2021, 04/19/2020, 04/04/2020, Additional history exists TSH 12/05/2024 12/06/2023, 10/21, 07/27/2022, Additional history exists CKD HGB USE SMARTSET 54769 12/20/202412/20, 12/06/2023, 11/16/2023, Additional history exists CKD PHOS USE SMARTSET 17042 12/20/2024 1102/2023, 11/16/2023, 10/04/2022, Additional history exists [...] filedocumented as of this encounter Care Teams Open Soaper Tender Relationship Specialty Start Date End Date Gilbert Calloway MD [address] [place] [address] [place] [phone] PCP - General Family Medicine 07/30/23 documented as of this encounter
--- OUTSIDE RECORDS SUMMARY | 2024-05-18 18:02 | External Medical Summary | Summary of Care ---
Author Name Unknown Organization [facility] Address [address] [place] [address] Phone [phone] Care Team Providers Care Hide And Skin Colerer Name Role Phone Gilbert Calloway MD Primary Care Provide r Reason for Visit * Reason Onset Date Comments [facility]: Screening 05/02/2024 Encounter Details Date Type Department Care Team (Late st Contact Info) Description 05/02/2024 Telephone [facility], [facility] Region [address] [place], [place] [phone] Carmela Espana, PARTNER CCO [address] [place] [address] [facility]: Screening Allergies Active Allergy Reactions Criticality Noted Date Comments Ergotamine 03/01/2000 vomit Nitroglycerin 03/14/2007 vomitting documented as of this encounter (statuses as of 05/02/2024) Medications Acetaminophen 500 MG Oral Tablet (Tylenol)Indicatio [...] as of this encounter (statuses as of 05/02/2024) Active Problems Problem Noted Date Diagnosed Date [...] daily. Suspect she is gaining real wt. [facility] nursing continue to monitor. Spondylosis [...] atrial fibrillation 03/01/2021 Overview (03/09/2021): new onset, [facility] on apixaban Assessment & Plan [...] artery of [place] heart without angina pectoris Assessment & Plan [...] as of this encounter (statuses as of 05/02/2024) Resolved Problems Problem Noted Date Diagnosed Date [...] 06/30/2014 06/26/2017 Overview (07/15/2014): hgb 7.4 [facility] [...] as of this encounter (statuses as of 05/02/2024) Immunizations Name Administration Dates Next Due COVID-19 [...] Telephone Encounter - Carmela Espana LPN - 05/02/2024 2:25 PM EDT Zoya Howard was referred as a potential candidate for enrollment for [facility]. A review of this chart was completed and: Zoya does not meet criteria for enrollment into [facility]. Referral Source: PCP/Specialty Pt recently graduated from [facility] due to noncompliance and frequent no show for appts Referring care team was notified via : [employer] communication documented in this encounter Plan of Treatment Upcoming Encounters Date Type Department Care Team (Late st Contact Info) Description 05/07/2024 11:20 AM EDT Office Visit [address] [place] [phone] Gilbert Calloway MD [address] [place] [address] [place] [phone] 06/30/2024 10:00 AM EDT Office Visit [address] [place] [phone] Gilbert Calloway MD [address] [place] [address] [place] [address] 07/10/2024 2:20 PM EDT Office Visit Nephrology, [facility] [address] [facility] [place] [address] Tirso Shah MD [address] [place] [address] Health Maintenance Due Date Last Done Comments DTap/Tdap Vaccines (1 - Tdap) 11/15/1957 Adult Wellness Visit 2002 Albumin/Creatinine Ratio 07/28/2023 023, 06/09/2020, 03/13/2019, Additional history exists COVID-19 Vaccine ( season) 2023 01/04/2021, 04/19/2020, 04/04/2020, Additional history exists TSH 12/05/2024 12/06/2023, 10/21, 07/27/2022, Additional history exists CKD HGB USE SMARTSET 36606 12/20/202412/20, 12/06/2023, 11/16/2023, Additional history exists CKD PHOS USE SMARTSET 81172 12/20/2024 11/0 02/2023, 11/16/2023, 10/04/2022, Additional history [...] filedocumented as of this encounter Care Teams Hide And Skin Colerer Relationship Specialty Start Date End Date Gilbert Calloway MD [address] [place] [address] [place] [address] PCP - General Family Medicine 07/30/23 documented as of this encounter
--- OUTSIDE RECORDS SUMMARY | 2024-05-18 18:02 | External Medical Summary | Summary of Care ---
Author Name Unknown Organization [facility] Address [address] [place] [address] Phone [phone] Care Team Providers Care Mechanical Engineering Specialist Name Role Phone Gilbert Calloway MD Primary Care Provide r Reason for Visit * Reason Onset Date Comments Medication Refill 05/16/2024 Encounter Details Date Type Department Care Team (Late st Contact Info) Description 05/16/2024 Refill Family Medicine [address] [place] [phone] Gilbert Calloway MD [address] [place] [address] [place] [address] Persistent insomnia; GENERAL OSTEOARTHROSIS Allergies Active Allergy Reactions Criticality Noted Date [...] the morning. 30 Capsule 11/22/19 24 Active Pantoprazole Sodium 40 MG [...] bedtime. 60 Tablet 11 03/26/19 25 Active Calcitriol 0.25 MCG Oral Capsule [...] bedtime. 60 Tablet 5 05/14/19 25 Active traZODone HCl 150 MG Oral Tablet (Desyrel)Indicatio ns:Persistent insomnia Take 1 Tablet by mouth at bedtime. 90 Tablet 1 05/17/19 25 Active Apixaban 5 MG Oral Tablet (Eliquis) Take 1 Tablet by mouth in the morning and 1 Tablet before bedtime. 180 Tablet 3 05/17/19 25 Active Apixaban 5 MG Oral Tablet (Eliquis) Take 1 Tablet by mouth in the morning and 1 Tablet before bedtime. 180 Tablet 3 11/22/19 24 025 Discontin ued(Refil l) traZODone HCl 150 MG Oral Tablet (Desyrel)Indicatio ns:Persistent insomnia Take 1 Tablet by mouth at bedtime. 90 Tablet 1 04/11/19 25 025 Discontin ued(Refil l) documented as [...] this interval not displayed. Medication Regimen: Beta Hsa Therapy: Metoprolol Succinate (ER) VIKKI Inhibitor/ARB Therapy: [...] daily. Suspect she is gaining real wt. [facility] nursing continue to monitor. Spondylosis [...] her pain concerns. She is aware [facility] does not manage chronic pain 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[place] co ronary artery of [place] heart without angina pectoris Assessment & Plan [...] No 01/22/2024 Does the household have a [facility] source of income? (Household - [...] Telephone Encounter - Gilbert Calloway MD - 05/16/2024 10:54 AM EDT Signed Prescriptions: Disp Refills traZODone HCl 150 MG Oral Tablet (Desyrel) 90 Tab*1 Sig: Take 1 Tablet by mouth at bedtime. Authorizing Provider: GILBERT CALLOWAY Apixaban 5 MG Oral Tablet (Eliquis) 180 Ta*3 Sig: Take 1 Tablet by mouth in the morning and 1 Tablet before bedtime. Authorizing Provider: GILBERT CALLOWAY * Telephone Encounter - Chrissy Frazier CMA - 05/16/2024 10:51 AM EDT Pending Prescriptions: Disp Refills traZODone HCl 150 MG Oral Tablet (Desyrel) 90 Tab*1 Sig: Take 1 Tablet by mouth at bedtime. Apixaban 5 MG Oral Tablet (Eliquis) 180 Ta*3 Sig: Take 1 Tablet by mouth in the morning and 1 Tablet before bedtime. * Telephone Encounter - Chhaya Motley OSA - 05/16/2024 10:40 AM EDT Did you pend patient's preferred pharmacy and medication before forwarding?yes Pharmacy: [facility], [address] [place] Pending Prescriptions: Disp Refills traZODone HCl 150 MG Oral Tablet (Desyrel)90 Tab*1 Sig: Take 1 Tablet by mouth at bedtime. Apixaban 5 MG Oral Tablet (Eliquis) 180 Ta*3 Sig: Take 1 Tablet by mouth in the morning and 1 Tablet before bedtime. Last Visit: 12/24/2023 (in office), 01/10/2023 (telemedicine) Next Visit: 06/30/2024 If no future appointments scheduled, and last appointment is greater than a year ago, please schedule patient for a follow-up appointment Last date the medication was ordered: 11.22.23 Is this request for a controlled substance?No [...] 10:00 AM EDT Office Visit Family Medicine [address] [place] [phone] Gilbert Calloway MD [address] [place] [address] [place] [phone] 07/10/2024 2:20 PM EDT Office Visit Nephrology, [address] [place] [address] Tirso Shah MD [address] [facility] [place] [address] Health Maintenance Due Date Last Done Comments DTap/Tdap Vaccines (1 - Tdap) 11/15/1957 Adult Wellness Visit 2002 Albumin/Creatinine Ratio 07/28/2023 023, 06/09/2020, 03/13/2019, Additional history exists COVID-19 Vaccine ( season) 2023 01/04/2021, 04/19/2020, 04/04/2020, Additional history exists TSH 12/05/2024 12/06/2023, 10/21, 07/27/2022, Additional history exists CKD HGB USE SMARTSET 69016 12/20/202412/20, 12/06/2023, 11/16/2023, Additional history exists CKD PHOS USE SMARTSET 37240 12/20/2024 110 02/2023, 11/16/2023, 10/04/2022, Additional history [...] Anxiety state Anxiety state, unspecified Atherosclerosis of [place] coronary artery of [place] heart without angina pectoris Acquired hypothyroidism Unspecified hypothyroidism Dyslipidemia, goal LDL below 100 Other and unspecified hyperlipidemia Aortic ectasia, thoracic (HCC) Thoracic aortic ectasia Chronic atrial fibrillation (HCC) Atrial fibrillation Benign hypertension with stage 3b chronic kidney disease ([facility]) Advanced care planning/counseling discussion- Primary Other specified counseling Atherosclerosis of [place] coronary artery of [place] heart without angina pectoris Chronic atrial fibrillation [...] disorder with single episode, in partial remission ([facility]) Osteoarthritis of spine with radiculopathy, lumbar region DDD (degenerative disc disease), lumbar Degeneration of lumbar or lumbosacral intervertebral disc Advanced care planning/counseling discussion Other specified counseling Persistent insomnia Persistent disorder of initiating or maintaining sleep GENERAL OSTEOARTHROSIS Generalized osteoarthrosis, unspecified site documented in this encounter Care Teams Mechanical Engineering Specialist Relationship Specialty Start Date End Date Gilbert Calloway MD [address] [place] [address] [place] [phone] PCP - General Family Medicine 07/30/23 documented as of this encounter
--- OUTSIDE RECORDS SUMMARY | 2024-05-18 18:03 | External Medical Summary | Summary of Care ---
Author Name Unknown Organization [facility] Address [address] [facility] [place] [address] Phone [phone] Care Team Providers Care Gas Engine Operator Generators Name Role Phone Gilbert Calloway MD Primary Care Provide r Reason for Visit * Reason Onset Date Comments FYI 04/30/2024 Encounter Details Date Type Department Care Team (Late st Contact Info) Description 04/30/2024 Telephone Family Medicine [address] [place] [phone] Gilbert Calloway MD [address] [place] [address] [place] [address] FYI Allergies Active Allergy Reactions Criticality Noted Date Comments Ergotamine 03/01/2000 vomit Nitroglycerin 03/14/2007 vomitting documented as of this encounter (statuses as of 04/30/2024) Medications Acetaminophen 500 MG Oral Tablet (Tylenol)Indicatio [...] as of this encounter (statuses as of 04/30/2024) Active Problems Problem Noted Date Diagnosed Date [...] Suspect she is gaining real wt. [facility] nursing continue to monitor. Spondylosis of [...] her pain concerns. She is aware [facility] does not manage chronic pain meds. With her history of confusion, would recommend against use of narcotic medication. Mild aortic stenosis 07/27/2021 Assessment & Plan (08/03/2022 11:39 AM EDT): Following with cardiology Aortocoronary bypass status 03/09/2021 Chronic atrial fibrillation 03/01/2021 Overview (03/09/2021): new onset, [facility] on apixaban Assessment & Plan (01/14/2024 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[place] co ronary artery of [place] heart without angina pectoris Assessment & Plan [...] as of this encounter (statuses as of 04/30/2024) Resolved Problems Problem Noted Date Diagnosed Date [...] 06/26/2017 Overview (07/15/2014): hgb 7.4 admitted [facility] CKD [...] as of this encounter (statuses as of 04/30/2024) Immunizations Name Administration Dates Next Due COVID-19 [...] Telephone Encounter - Gilbert Calloway MD - 04/30/2024 12:42 PM EDT Noted and thank you! * Telephone Encounter - Sobia Stubbs OSA - 04/30/2024 8:53 AM EDT Patient called to request FYI be forwarded to PCP that she was admitted to [facility] 04/25 due to chest pain and is still there Possible d/c pending to [facility] in either [place] or [place] inpatient rehab - unknownd/c date at this time FYI only Thank you documented in this encounter Plan of Treatment Upcoming Encounters Date Type Department Care Team (Late st Contact Info) Description 06/30/2024 10:00 AM EDT Office Visit Family Medicine [address] [place] [phone] Gilbert Calloway MD [address] [place] [address] [place] [phone] 07/10/2024 2:20 PM EDT Office Visit NephrologyCaroline [address] [facility] [place] [address] Tirso Shah MD [address] [facility] [place] [address] Health Maintenance Due Date Last Done Comments DTap/Tdap Vaccines (1 - Tdap) 11/15/1957 Adult Wellness Visit 2002 Albumin/Creatinine Ratio 07/28/2023 023, 06/09/2020, 03/13/2019, Additional history exists COVID-19 Vaccine ( season) 2023 01/04/2021, 04/19/2020, 04/04/2020, Additional history exists TSH 12/05/2024 12/06/2023, 10/21, 07/27/2022, Additional history exists CKD HGB USE SMARTSET 14327 12/20/202412/20, 12/06/2023, 11/16/2023, Additional history exists CKD PHOS USE SMARTSET 92092 12/20/2024 11/02/2023, 11/16/2023, 10/04/2022, Additional history exists Depression Monitoring [...] filedocumented as of this encounter Care Teams Gas Engine Operator Generators Relationship Specialty Start Date End Date Gilbert Calloway MD [address] [place] [address] [place] [address] PCP - General Family Medicine 07/30/23 documented as of this encounter
--- NOTE | 2024-05-18 18:10 | Emergency Department Note ---
Impression & Plan Shortness of breath, Hypertension, Acute UTI ED Provider Note NAME: DYLAN LEACH AGE: 85 SEX: F : 11/14/1938 ARRIVES VIA: Ambulance INFORMANT: Patient ED PROVIDER(S): Aidan Dumont MD CHIEF COMPLAINT: Shortness of breath. PLAN: Disposition: Admit MEDICAL DECISION MAKING: The patient is a pleasant 85-year-old woman with a past medical history of mild cognitive impairment, coronary disease/CABG, CHF diastolic type, A-fib on Eliquis, mild aortic stenosis, hypertension, CKD stage III, GERD, anxiety who presents to the emergency department via EMS for shortness of breath. Apparently the patient had been short of breath since this morning and had called 911 several times. She had refused transport the first time but then called again. Apparently the patient was expressing desire to have a nurse come and sit with her. Patient was admitted to this facility at the beginning of April for chest pain with unremarkable evaluation. On evaluation patient is no acute distress, afebrile blood pressure in the 180s/90s and vital signs otherwise stable. She appears euvolemic to dry. EKG without overt acute ischemia. CXR negative for acute cardiopulmonary process per my personal preliminary review/interpretation. WBC, H/H and platelets within normal limits. Chemistry without metabolic acidosis. LFTs unremarkable. Calcium is mildly above normal at 10.4 consistent with patient's clinically dry appearance. Gentle IV fluid hydration provided. Positivity troponin 8.9, within normal limits. BNP is elevated at 407, nonspecific and likely related to patient's atrial fibrillation. Lipase is not elevated. Procalcitonin is not elevated. UA is consistent with infection with positive nitrites, WBCs and bacteria. Respiratory BioFire was negative. CT of the chest was performed and was negative for PE. However suspicion for possible left lower lobe developing pneumonia versus atelectasis per my preliminary independent interpretation. Patient initially was treated with cefdinir for urinary tract infection due to her wish to be discharged however given her shortness of breath she did agree for admission and so antibiotic coverage was broadened with IV Zosyn. Patient's blood pressure did remain elevated and so she was additionally treated with IV labetalol. Case was discussed with Dr. Johnson, [facility] hospitalist, who will evaluate the patient for admission. Further management per admitting team. Triage Nursing notes reviewed and agree them. Prior/external medical records reviewed Vital Signs: reviewed Differential diagnosis: Reactive airway disease, pneumonia, pneumothorax, COPD, CHF, infections, cardiac ischemia, pulmonary embolism, musculoskeletal, gastrointestinal, as well as other pathologies. ER treatment provided: See below. Diagnostics interpreted by me: ECG: Atrial fibrillation 79 bpm, no ectopy, no overt ST ovation or depression, QTc 438, QRS 82. Cardiac Monitoring: An order for continuous cardiac monitoring was placed and demonstrated Atrial fibrillation 79 bpm, no ectopy. Laboratory studies: See below Imaging studies: See below Consultation(s): Case was discussed with Dr. Johnson, [facility] hospitalist, who will evaluate the patient for admission. HPI: The patient is a pleasant 85-year-old woman with a past medical history of mild cognitive impairment, coronary disease/CABG, CHF diastolic type, A-fib on Eliquis, mild aortic stenosis, hypertension, CKD stage III, GERD, anxiety who presents to the emergency department via EMS for shortness of breath. Apparently the patient had been short of breath since this morning and had called 911 several times. She had refused transport the first time but then called again. Apparently the patient was expressing desire to have a nurse come and sit with her. Patient was admitted to this facility at the beginning of April for chest pain with unremarkable evaluation. ROS: See above HPI for pertinent positives & negatives. A total of 10 systems reviewed and were otherwise negative. VITALS:See Below PHYSICAL EXAMINATION: GENERAL: Awake, alert, anxious-appearing, in no distress HENT: Normocephalic, atraumatic. Oropharynx with dry mucous membranes and otherwise unremarkable. EYES: Normal conjunctiva. Sclera non-icteric. NECK: Supple. No nuchal rigidity. FROM. No JVD. RESPIRATORY: Clear to auscultation. CARDIAC: Regular rate, normal rhythm. 3/6 systolic murmur. Extremities warm and well perfused. Pulses equal. ABDOMEN: Soft, non-distended. No tenderness to palpation. No rebound or guarding. No masses. MUSCULOSKELETAL: Chest examination reveals no tenderness. The back is symmetrical on inspection without obvious abnormality. There is no CVA tenderness to palpation. No joint edema. LOWER EXTREMITIES: Calves are equal size bilaterally and non-tender. No edema. No discoloration. NEURO: Normal sensorium. No sensory or motor deficits noted. SKIN: No rash or jaundice noted. Aidan Dumont MD Past Med/Surg History Problem List (Updated 05/19/24 @ 02:43 by Aidan Dumont MD) Acute UTI (Acute) Hypertension (Acute) Shortness of breath (Acute) Hypertension, uncontrolled Hiatal hernia with GERD and esophagitis Chest pain (Acute) Iron deficiency anemia Mild cognitive impairment Delirium due to another medical condition, acute, hyperactive Problems related to lack of adequate sleep Intractable nausea Chronic atrial fibrillation Anemia, chronic disease Acute renal failure superimposed on stage 3 chronic kidney disease Asymptomatic bradycardia Hypertension (Acute) SOB (shortness of breath) (Acute) Ascending aorta dilation Acute alteration in mental status (Acute) Confusion Costochondritis Elevated troponin (Acute) Weakness (Acute) SOB (shortness of breath) (Acute) History of coronary artery disease (Acute) Precordial chest pain (Acute) CAD (coronary artery disease) Hypophosphatemia Hypomagnesemia Acute on chronic diastolic CHF (congestive heart failure) Pneumonia (Acute) Sepsis due to pneumonia Hyperparathyroidism Hypercalcemia Anticoagulant long-term use Precordial chest pain (Acute) (HFpEF) heart failure with preserved ejection fraction Paroxysmal A-fib Chronic heart failure with preserved ejection fraction (HFpEF) Labile hypertension Sinus pause Chest pain, atypical Hypertension (Acute) Hypothyroidism KIM (acute kidney injury) (Acute) Acute on chronic heart failure with preserved ejection fraction (HFpEF) Greater trochanteric bursitis of right hip Anxiety (Chronic) Chronic osteoarthritis (Chronic) GERD (gastroesophageal reflux disease) (Chronic) DJD of left shoulder Primary osteoarthritis, right shoulder Diarrhea (Acute) Urinary incontinence (Chronic) Syncope and collapse Arthritis of right shoulder region (Acute) Depression with anxiety (Acute) Insomnia (Acute) Ambulatory dysfunction (Acute) Arthritis Depression Medical History Mobitz type 1 second degree AV block (10/2023) Somatic dysfunction of sacroiliac joint History of blood transfusion 2012 2/2 GASTRIC ULCER History of gastric ulcer 2013 Spinal stenosis Gastric ulcer Atrial fibrillation with rapid ventricular response (11/2022) Fall Moderate mitral regurgitation Transient ischemic attack (TIA) ~2012>REASON FOR PLAVIX Osteoarthritis Chronic back pain Dyslipidemia Chronic kidney disease stage 3 Hypertension Surgical History 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 History of cardiac cath NO STENTS History of coronary artery bypass graft 1998 (1 VESSEL) S/P epidural steroid injection History of esophagogastroduodenoscopy (EGD) S/p reverse total shoulder arthroplasty RT/LEFT History of abdominoplasty PANNICULECTOMY History of colonoscopy History of arthroplasty of right hip History of arthroplasty of left hip History of hysterectomy with oophorectomy History of arthroplasty of left shoulder History of tonsillectomy and adenoidectomy H/O bilateral salpingo-oophorectomy with hyter Family History Father , age 74 Allergic reaction Mother , 80s CHF (congestive heart failure) Other No family history of adverse response to anesthesia Social History Smoking Status: Never smoker Second Hand Exposure: No; Do You Dip or Chew Tobacco: No; Hx Alcohol Use: No Hx Substance Use: No Preferred Language: Romanian Communication Ability: Effective Visual Impairment: No Limitations [place] Required: No Beliefs That Will Affect Care: None marital status: Single Current Living Situation: Personal Care Facility Current Living Situation Comment: [facility] How many Children do You have: 0 Feels Safe at Home: Yes Assistive Devices: Walker Allergies Allergies Allergy/AdvReac Type Severity Reaction Status Date / Time nitroglycerin AdvReac Severe "PROJECTILE Verified 05/18/24 18:37 VOMITTING" ergotamine AdvReac Intermediate vomiting Verified 05/18/24 18:37 Home Meds Home Medications Medication Instructions Recorded Confirmed calcitriol 0.25 mcg capsule 0.25 mcg PO 3XWK 05/18/24 05/18/24 Previous Rx's Medication Instructions Recorded amlodipine 5 mg tablet (Norvasc) 5 mg PO QAM #30 tabs 04/29/24 apixaban 2.5 mg tablet (Eliquis) 2.5 mg PO BID #60 tabs 04/29/24 buspirone 15 mg tablet 15 mg PO BID #60 tabs 04/29/24 ferrous sulfate 325 mg (65 mg 325 mg PO DAILY #30 tabs 04/29/24 iron) tablet (Feosol) gabapentin 100 mg capsule 100 mg PO BID #60 caps 04/29/24 levothyroxine 75 mcg tablet 75 mcg PO DAILYBB #30 tabs 04/29/24 (Synthroid) melatonin 10 mg capsule 10 mg PO HS #30 caps 04/29/24 metoprolol succinate 25 mg 25 mg PO QAM #30 tabs 04/29/24 tablet,extended release 24 hr pantoprazole 40 mg tablet,delayed 40 mg PO BID #60 tabs 04/29/24 release rosuvastatin 10 mg tablet 10 mg PO DAILY #30 tabs 04/29/24 trazodone 50 mg tablet 150 mg (3 x 50 mg) PO HS #90 tabs 04/29/24 Results & Data (ED) Vital Signs Vital Signs - 24 hr 05/18/24 18:04 05/18/24 18:09 05/18/24 18:35 Temperature 36.8 C Temperature Source Oral Pulse Rate 85 82 74 Pulse Rate [Right Finger] Pulse Rhythm Regular Regular Pulse Strength Normal Respiratory Rate 20 19 Respiratory Effort / Characteristics Non-Labored Respiratory Depth Normal Respiratory Pattern Regular Blood Pressure 189/96 H Blood Pressure [Right Arm] Blood Pressure Mean 127 Blood Pressure Mean [Right Arm] Blood Pressure Position Lying Blood Pressure Position [Right Arm] Pulse Oximetry 98 98 Oxygen Delivery Method Room Air Room Air Sepsis Recent Fever Within 48 Hours No Sepsis New/Unexplained Change in Mental Status N/A Sepsis Action Taken by Nursing No Action Required 05/18/24 18:35 05/18/24 18:48 05/18/24 20:33 Temperature Temperature Source Pulse Rate 83 Pulse Rate [Right Finger] 81 91 H Pulse Rhythm Pulse Strength Respiratory Rate 20 18 Respiratory Effort / Characteristics Non-Labored Non-Labored Spontaneous Respiratory Depth Normal Normal Respiratory Pattern Regular Regular Blood Pressure Blood Pressure [Right Arm] 189/96 H 196/96 H Blood Pressure Mean Blood Pressure Mean [Right Arm] 127 129 Blood Pressure Position Blood Pressure Position [Right Arm] Lying Pulse Oximetry 98 100 Oxygen Delivery Method Room Air Nebulizer Sepsis Recent Fever Within 48 Hours Sepsis New/Unexplained Change in Mental Status Sepsis Action Taken by Nursing 05/18/24 21:11 Temperature Temperature Source Pulse Rate 92 H Pulse Rate [Right Finger] Pulse Rhythm Pulse Strength Respiratory Rate Respiratory Effort / Characteristics Respiratory Depth Respiratory Pattern Blood Pressure 175/127 H Blood Pressure [Right Arm] Blood Pressure Mean Blood Pressure Mean [Right Arm] Blood Pressure Position Blood Pressure Position [Right Arm] Pulse Oximetry Oxygen Delivery Method Sepsis Recent Fever Within 48 Hours Sepsis New/Unexplained Change in Mental Status Sepsis Action Taken by Nursing Laboratory Data Attestation: I reviewed the patient's lab results. 05/18/24 18:25 05/18/24 18:25 Lab Results 05/18/24 05/18/24 Range/Units 18: 21:00 WBC 5.07 (4.8-10.8) K/ul RBC 4.35 (4.20-5.40) M/uL Hgb 12.3 (12.0-16.0) g/dl Hct 37.6 (37.0-47.0) % MCV 86.4 (80.0-100.0) fL MCH 28.3 (25.0-34.0) pg MCHC 32.7 (32.0-36.0) g/dL RDW Std Deviation 54.8 H (36.4-46.3) fL RDW Coeff of Howie 17.2 H (11.5-14.5) % Plt Count 170 (130-400) K/uL MPV 9.8 (9.4-12.4) fL Immature Gran % (Auto) 0.2 % Neut % (Auto) 55.7 % Lymph % (Auto) 29.6 % [place] % (Auto) 10.7 % Eos % (Auto) 2.8 % Baso % (Auto) 1.0 % Neut # (Auto) 2.83 (1.40-6.50) K/uL Lymph # (Auto) 1.50 (1.20-3.40) K/uL [place] # (Auto) 0.54 (0.11-0.59) K/uL Eos # (Auto) 0.14 (0.00-0.50) K/uL Baso # (Auto) 0.05 (0.00-0.20) K/uL Immature Gran # (Auto) 0.01 (0.01-0.20) K/uL PT 12.3 H (9.0-12.0) Seconds INR 1.1 (0.9-1.1) Sodium 137 (136-145) mmol/L Potassium 4.0 (3.5-5.1) mmol/L Chloride 107 (98-107) mmol/L Carbon Dioxide 22 (21-32) mmol/L Anion Gap 8 (3-11) BUN 14 (6-23) mg/dl Creatinine 1.03 (0.6-1.2) mg/dl Est Cr Clr Drug Dosing 37.9 ml/min eGFR 52.63 BUN/Creatinine Ratio 13.6 (10-20) Glucose 88 (70-99(Fasting)) mg/dl Calcium 10.4 H (8.6-10.3) mg/dl Magnesium 1.7 (1.7-2.4) mg/dl Total Bilirubin 1.0 (0.2-1.0) mg/dl AST 15 (13-39) U/L ALT 14 (7-52) U/L Alkaline Phosphatase 58 (34-104) U/L Troponin I High Sens 8.9 (0-14) pg/ml B-Natriuretic Peptide 407 H (0-100) pg/ml Total Protein 7.2 (6.0-8.3) gm/dl Albumin 4.0 (3.4-5.0) gm/dl Globulin 3.2 (2.5-4.0) gm/dl Albumin/Globulin Ratio 1.3 (0.9-2) Lipase 31 (11-82) U/L Procalcitonin 0.04 (0-0.5) ng/ml Urine Color Yellow Urine Appearance Clear (Clear) Urine pH 8.0 H (4.5-7.5) Ur Specific [place] 1.014 (1.000-1.030) Urine Protein 1+ H (Negative) Urine Glucose (UA) Negative (Negative) Urine Ketones 1+ H (Negative) Urine Blood Trace H (Negative) Urine Nitrite Positive A (Negative) Urine Bilirubin Negative (Negative) Urine Urobilinogen Negative (Negative) Ur Leukocyte Esterase Trace H (Negative) Urine WBC (Auto) 11-20 H (0-5) /hpf Urine RBC (Auto) 3-5 H (0-2) /hpf U Hyaline Cast (Auto) 0-2 (0-2) /lpf U Epithel Cells (Auto) 0-2 (0-2) /hpf Urine Bacteria (Auto) 4+ H (None Seen) Adenovirus (PCR) Not Detected (NotDetected) B. pertussis DNA (PCR) Not Detected (NotDetected) B.parapertussis DNA PCR Not Detected (NotDetected) C. pneumoniae DNA (PCR) Not Detected (NotDetected) Coronavirus OC43 (PCR) Not Detected (NotDetected) Coronavirus HKU1 (PCR) Not Detected (NotDetected) Coronavirus 229E (PCR) Not Detected (NotDetected) SARS-CoV-2 (PCR) Not Detected (NotDetected) Coronavirus NL63 (PCR) Not Detected (NotDetected) Human Metapneumovir PCR Not Detected (NotDetected) Influenza Type A (PCR) Not Detected (NotDetected) Influenza Type B (PCR) Not Detected (NotDetected) M. pneumoniae (PCR) Not Detected (NotDetected) Parainfluenza 1 (PCR) Not Detected (NotDetected) Parainfluenza 2 (PCR) Not Detected (NotDetected) Parainfluenza 3 (PCR) Not Detected (NotDetected) Parainfluenza 4 (PCR) Not Detected (NotDetected) RSV (PCR) Not Detected (NotDetected) Entero/Rhino (PCR) Not Detected (NotDetected) Administered Medications Discontinued Medications Apixaban (Apixaban 2.5 Mg Tab) 2.5 mg PO NOW STA Stop: 05/19/24 00:18 Last Admin: 05/19/24 00:37 Dose: 2.5 mg Documented By: [facility] Buspirone HCl (Buspirone 7.5 Mg Tab) 15 mg PO NOW STA Stop: 05/19/24 00:18 Last Admin: 05/19/24 00:37 Dose: 15 mg Documented By: [facility] Cefdinir (Cefdinir 300 Mg Cap) 300 mg PO ONE STA; Protocol Stop: 05/18/24 19:31 Last Admin: 05/18/24 22:10 Dose: Not Given Documented By: [facility] Sodium Chloride (Nss) 500 mls @ 999 mls/hr IV .Q31M ONE Stop: 05/18/24 20:00 Last Infusion: 05/18/24 20:13 Dose: Infused Documented By: [facility] Admin: 05/18/24 19:41 Dose: 999 mls/hr Documented By: [facility] Piperacillin Sod/Tazobactam Sod (Zosyn) 4.5 gm in 100 mls @ 200 mls/hr IV NOW ONE; Protocol Stop: 05/18/24 21:29 Last Infusion: 05/18/24 21:50 Dose: Infused Documented By: [facility] Admin: 05/18/24 21:14 Dose: 200 mls/hr Documented By: [facility] Ioversol (Optiray 320 125ml) 119 ml IV ONCE ONE Stop: 05/18/24 20:23 Last Admin: 05/18/24 20:22 Dose: 119 ml Documented By: [facility] Labetalol HCl (Labetalol Hcl Iv 5 Mg/Ml 20ml) 10 mg IV NOW STA Stop: 05/18/24 21:01 Last Admin: 05/18/24 21:11 Dose: 10 mg Documented By: [facility]CI[facility] Melatonin (Melatonin 3 Mg Tab) 6 mg PO NOW STA Stop: 05/19/24 00:18 Last Admin: 05/19/24 00:40 Dose: 6 mg Documented By: [facility] Trazodone HCl (Trazodone Hcl 50 Mg Tab) 150 mg PO NOW STA Stop: 05/19/24 00:18 Last Admin: 05/19/24 00:37 Dose: 150 mg Documented By: [facility] Imaging Data Radiologist's Impression: Chest X-Ray 05/18/24 18:07 Exam(s): XR CXR 1 VIEW EXAM: XR Chest, 1 View CLINICAL HISTORY: Reason for exam: Chest pain, nonspecific. TECHNIQUE: Frontal view of the chest. COMPARISON: 04/25/24 FINDINGS: Lungs: Unremarkable. No consolidation. Pleural space: Unremarkable. No pneumothorax. Heart: Mild cardiomegaly. Mediastinum: Small hiatus hernia. Bones/joints: Bilateral glenohumeral joint arthroplasty. No acute fracture. IMPRESSION: No acute pulmonary process identified Small hiatus hernia Electronically signed by: Mauricio Blackwood MD 05/18/24 22:07 PM Chest CTA 05/18/24 20:05 Exam(s): CTA CHEST IV Amt: OPTIRAY [id number] EXAM: CT Angiography Chest With Intravenous Contrast CLINICAL HISTORY: Reason for exam: sob, r/o PE. TECHNIQUE: Axial computed tomographic angiography images of the chest with intravenous contrast. CTDI is 15.95 mGy and DLP is 495.1 mGy-cm. Automated exposure control was utilized for the study. A dose lowering technique was utilized adhering to the principles of ALARA. MIP reconstructed images were created and reviewed. COMPARISON: 11/03/23 FINDINGS: Pulmonary arteries: Unremarkable. No pulmonary embolism. Aorta: No acute findings. No thoracic aortic aneurysm. Lungs: Discoid atelectasis seen in bilateral lower lobes. No mass. Pleural space: Unremarkable. No significant effusion. No pneumothorax. Heart: Mild cardiomegaly. No significant pericardial effusion. No evidence of RV dysfunction. Mediastinum: Moderate sized hiatus hernia. Bones/joints: No acute fracture. No dislocation. There is mild dextroscoliosis seen in the thoracic spine. Lymph nodes: Unremarkable. No enlarged lymph nodes. Spleen: Calcified granulomas are seen in the spleen. Kidneys and ureters: There is any ureter is dilated, measuring 4.4 cm in diameter. IMPRESSION: 1. No acute pulmonary embolism 2. Dilated ascending aorta. 3. Hiatus hernia, also seen on the prior study from 11/03/23 Electronically signed by: Mauricio Blackwood MD 05/18/24 21:59 PM Discharge Plan Visit Data Chief Complaint: Shortness of Breath/Dyspnea Stated Complaint: SOB ED Provider: Aidan Dumont Discharge Problem: Shortness of breath, Hypertension, Acute UTI Patient Disposition: Admitted As Inpatient Discharge Instructions Interventions: ED Discharge Assessment Last Done: 05/19/24 02:00 Discharge Problem: Hypertension Qualifiers: Hypertension type: unspecified Qualified Code(s): I10 - Essential (primary) hypertension
[2024-05-18 18:59] LABS: Appearance Urine Clear (Clear); Bacteria Urine Automated 4+ (None Seen); Bilirubin Urine Negative (Negative); Blood Urine Trace (Negative); Cast Urine Automated 0-2 /lpf (0-2); Color Urine Yellow; Epithelial Cell Urine Auto 0-2 /hpf (0-2); Glucose Urine UA Negative (Negative); Ketones Urine 1+ (Negative); Leukocyte Esterase Urine Trace (Negative); Nitrite Urine Positive (Negative); Protein Urine 1+ (Negative); Specific Gravity Urine 1.014 (1.000-1.030); Urobilinogen Urine Negative (Negative)
[2024-05-18 19:05] LABS: Basophils # (auto) 0.05 K/uL (0.00-0.20); Eosinophils # (auto) 0.14 K/uL (0.00-0.50); Eosinophils % (auto) 2.8 %; Hematocrit (blood only) 37.6 % (37.0-47.0); Hemoglobin 12.3 g/dl (12.0-16.0); Immature Granulocytes # (auto) 0.01 K/uL (0.01-0.20); Immature Granulocytes % (auto) 0.2 %; Lymphocytes % (auto) 29.6 %; Mean Corpuscular Hemoglobin 28.3 pg (25.0-34.0); Mean Corpuscular Hgb Conc 32.7 g/dL (32.0-36.0); Mean Corpuscular Volume 86.4 fL (80.0-100.0); Mean Platelet Volume 9.8 fL (9.4-12.4); Monocytes # (auto) 0.54 K/uL (0.11-0.59); Monocytes % (auto) 10.7 %; Neutrophils # (auto) 2.83 K/uL (1.40-6.50); Neutrophils % (auto) 55.7 %; Platelet Count 170 K/uL (130-400); RDW Coefficient of Variation 17.2 % (11.5-14.5); RDW Standard Deviation 54.8 fL (36.4-46.3); Red Blood Count 4.35 M/uL (4.20-5.40); White Blood Count 5.07 K/ul (4.8-10.8)
[2024-05-18 19:12] LABS: Albumin Globulin Ratio 1.3 (0.9-2); BUN Creatinine Ratio 13.6 (10-20); Calcium 10.4 mg/dl (8.6-10.3); Creatinine Clr Calc Pharmacy 37.9 ml/min; Globulin 3.2 gm/dl (2.5-4.0); Magnesium 1.7 mg/dl (1.7-2.4); Total Protein 7.2 gm/dl (6.0-8.3)
[2024-05-18 19:19] LABS: Troponin I High Sensitivity 8.9 pg/ml (0-14)
[2024-05-18 19:22] LABS: INR 1.1 (0.9-1.1); Prothrombin Time 12.3 Seconds (9.0-12.0)
[2024-05-18] MEDS: SODIUM CHLORIDE 0.9% 500 ML IV ONE (19:41)
[2024-05-18 19:49] LABS: Adenovirus PCR Not Detected (NotDetected); Bordetella parapertussis PCR Not Detected (NotDetected); Bordetella pertussis PCR Not Detected (NotDetected); Chlamydia pneumoniae PCR Not Detected (NotDetected); Coronavirus 229E PCR Not Detected (NotDetected); Coronavirus CoV-2 (COVID19)PCR Not Detected (NotDetected); Coronavirus HKU1 PCR Not Detected (NotDetected); Coronavirus NL63 PCR Not Detected (NotDetected); Coronavirus OC43PCR Not Detected (NotDetected); Human Metapneumovirus PCR Not Detected (NotDetected); Influenza A PCR Not Detected (NotDetected); Influenza B PCR Not Detected (NotDetected); Mycoplasma pneumoniae PCR Not Detected (NotDetected); Parainfluenza Virus 1 PCR Not Detected (NotDetected); Parainfluenza Virus 2 PCR Not Detected (NotDetected); Parainfluenza Virus 3 PCR Not Detected (NotDetected); Parainfluenza Virus 4 PCR Not Detected (NotDetected); Respiratory Syncytial VirusPCR Not Detected (NotDetected); Rhinovirus/Enterovirus PCR Not Detected (NotDetected)
[2024-05-18] MEDS: OPTIRAY 320 125ml IV ONE (20:22)
[2024-05-18] MEDS: LABETALOL HCL IV 5 MG/ML 20ML IV STA (21:11)
[2024-05-18] MEDS: PIPERACILLIN/TAZOBACTAM 4.5 GM/100 ML BAG IV ONE (21:14)
--- NOTE | 2024-05-18 22:01 | CT Scan Report ---
Exam(s): CTA CHEST IV Amt: OPTIRAY [id number] EXAM: CT Angiography Chest With Intravenous Contrast CLINICAL HISTORY: Reason for exam: sob, r/o PE. TECHNIQUE: Axial computed tomographic angiography images of the chest with intravenous contrast. CTDI is 15.95 mGy and DLP is 495.1 mGy-cm. Automated exposure control was utilized for the study. A dose lowering technique was utilized adhering to the principles of ALARA. MIP reconstructed images were created and reviewed. COMPARISON: 11/03/23 FINDINGS: Pulmonary arteries: Unremarkable. No pulmonary embolism. Aorta: No acute findings. No thoracic aortic aneurysm. Lungs: Discoid atelectasis seen in bilateral lower lobes. No mass. Pleural space: Unremarkable. No significant effusion. No pneumothorax. Heart: Mild cardiomegaly. No significant pericardial effusion. No evidence of RV dysfunction. Mediastinum: Moderate sized hiatus hernia. Bones/joints: No acute fracture. No dislocation. There is mild dextroscoliosis seen in the thoracic spine. Lymph nodes: Unremarkable. No enlarged lymph nodes. Spleen: Calcified granulomas are seen in the spleen. Kidneys and ureters: There is any ureter is dilated, measuring 4.4 cm in diameter. IMPRESSION: 1. No acute pulmonary embolism 2. Dilated ascending aorta. 3. Hiatus hernia, also seen on the prior study from 11/03/23 Electronically signed by: Mauricio Blackwood MD 05/18/24 21:59 PM
--- NOTE | 2024-05-18 22:08 | XRay Report ---
Exam(s): XR CXR 1 VIEW EXAM: XR Chest, 1 View CLINICAL HISTORY: Reason for exam: Chest pain, nonspecific. TECHNIQUE: Frontal view of the chest. COMPARISON: 04/25/24 FINDINGS: Lungs: Unremarkable. No consolidation. Pleural space: Unremarkable. No pneumothorax. Heart: Mild cardiomegaly. Mediastinum: Small hiatus hernia. Bones/joints: Bilateral glenohumeral joint arthroplasty. No acute fracture. IMPRESSION: No acute pulmonary process identified Small hiatus hernia Electronically signed by: Mauricio Blackwood MD 05/18/24 22:07 PM
[2024-05-18] MEDS: CEFDINIR 300 MG CAP PO STA (22:10)
--- NOTE | 2024-05-18 22:14 | History & Physical Report ---
Date of Service May 18, 2024 Assessment & Plan (1) SOB (shortness of breath): Plan: 85-year-old female with past medical history significant for hypothyroidism, history of hypercalcemia, hiatal hernia, thoracic aortic ectasia, chronic diastolic CHF, CAD status post CABG, hypertension, chronic atrial fibrillation, mild aortic stenosis, GERD, osteoarthritis, degenerative disc disease, depression, persistent insomnia, mixed incontinence urge and stress, history of gastric ulcer, cognitive use, anxiety comes from home because of complaints of shortness of breath and found to have UTI. Patient is very anxious. She says she wants to go home. She says she is doing fine. But then agreed to stay. As per ER, she was complaining of shortness of breath since morning and called 911 several times. Initially refused transport but then called again. Seems she expressed desire to have a nurse come and sit with her. Patient now denies any shortness of breath. Denies any cough. Denies fevers. Denies chest pain. Denies headache. Denies runny nose or sore throat. Denies abdominal pain. States she micturates a lot. Normal bowel movements. Hemodynamics are okay. Afebrile. Patient lives alone. Shortness of breath Seems earlier complained short of breath but currently denying CTA chest no acute findings Will monitor There is a question of patient not taking her home medications Will monitor Acute UTI Received Zosyn in the ER Continue with Rocephin Will follow cultures History of A-fib On metoprolol succinate and Eliquis Depression and anxiety On buspirone and trazodone Hypothyroidism On Synthyroid Hiatal hernia and GERD On Protonix Hypertension On amlodipine and metoprolol succinate IV labetalol as needed Question of patient not taking her medications at home Will monitor CKD stage III Creatinine 1.03 Will follow labs DVT prophylaxis On Eliquis Disposition Med/telemetry Full code. To check with patient if needed prescriptions at discharge as not taking meds at home. History of Present Illness Chief Complaint: UTI and complains of shortness of breath Primary Care Provider: Gilbert Calloway MD 85-year-old female with past medical history significant for hypothyroidism, history of hypercalcemia, hiatal hernia, thoracic aortic ectasia, chronic diastolic CHF, CAD status post CABG, hypertension, chronic atrial fibrillation, mild aortic stenosis, GERD, osteoarthritis, degenerative disc disease, depression, persistent insomnia, mixed incontinence urge and stress, history of gastric ulcer, cognitive use, anxiety comes from home because of complaints of shortness of breath and found to have UTI. Patient is very anxious. She says she wants to go home. She says she is doing fine. But then agreed to stay. As per ER, she was complaining of shortness of breath since morning and called 911 several times. Initially refused transport but then called again. Seems she expressed desire to have a nurse come and sit with her. Patient now denies any shortness of breath. Denies any cough. Denies fevers. Denies chest pain. Den ies headache. Denies runny nose or sore throat. Denies abdominal pain. States she micturates a lot. Normal bowel movements. Hemodynamics are okay. Afebrile. Patient lives alone. Past medical history. As mentioned above Past surgical history. Abdominal surgery. CABG. Colonoscopy. EGD. Lasering of secondary contract. Reconstruction of the left shoulder joint. Reconstruction of right shoulder joint. Cataracts. Tonsillectomy and adenoidectomy. Total abdominal hysterectomy with removal of tubes. Left total hip replacement. Social history. . No smoking. Alcohol occasional. No drug use. Family history. Brother had CAD, dementia. Mother had CHF. Sister had CAD. Allergies Allergy/AdvReac Type Severity Reaction Status Date / Time nitroglycerin AdvReac Severe "PROJECTILE Verified 05/18/24 18:37 VOMITTING" ergotamine AdvReac Intermediate vomiting Verified 05/18/24 18:37 Home Medications Medication Instructions Recorded Confirmed Type amlodipine 5 mg tablet (Norvasc) 5 mg PO QAM #30 tabs 04/29/24 05/18/24 Rx apixaban 2.5 mg tablet (Eliquis) 2.5 mg PO BID #60 tabs 04/29/24 05/18/24 Rx buspirone 15 mg tablet 15 mg PO BID #60 tabs 04/29/24 05/18/24 Rx ferrous sulfate 325 mg (65 mg 325 mg PO DAILY #30 tabs 04/29/24 05/18/24 Rx iron) tablet (Feosol) gabapentin 100 mg capsule 100 mg PO BID #60 caps 04/29/24 05/18/24 Rx levothyroxine 75 mcg tablet 75 mcg PO DAILYBB #30 tabs 04/29/24 05/18/24 Rx (Synthroid) melatonin 10 mg capsule 10 mg PO HS #30 caps 04/29/24 05/18/24 Rx metoprolol succinate 25 mg 25 mg PO QAM #30 tabs 04/29/24 05/18/24 Rx tablet,extended release 24 hr pantoprazole 40 mg tablet,delayed 40 mg PO BID #60 tabs 04/29/24 05/18/24 Rx release rosuvastatin 10 mg tablet 10 mg PO DAILY #30 tabs 04/29/24 05/18/24 Rx trazodone 50 mg tablet 150 mg (3 x 50 mg) PO HS #90 tabs 04/29/24 05/18/24 Rx calcitriol 0.25 mcg capsule 0.25 mcg PO 3XWK 05/18/24 05/18/24 History Past Med/Surg History Problem List (Updated 05/19/24 @ 02:43 by Aidan Dumont MD) Acute UTI (Acute) Hypertension (Acute) Shortness of breath (Acute) Hypertension, uncontrolled Hiatal hernia with GERD and esophagitis Chest pain (Acute) Iron deficiency anemia Mild cognitive impairment Delirium due to another medical condition, acute, hyperactive Problems related to lack of adequate sleep Intractable nausea Chronic atrial fibrillation Anemia, chronic disease Acute renal failure superimposed on stage 3 chronic kidney disease Asymptomatic bradycardia Hypertension (Acute) SOB (shortness of breath) (Acute) Ascending aorta dilation Acute alteration in mental status (Acute) Confusion Costochondritis Elevated troponin (Acute) Weakness (Acute) SOB (shortness of breath) (Acute) History of coronary artery disease (Acute) Precordial chest pain (Acute) CAD (coronary artery disease) Hypophosphatemia Hypomagnesemia Acute on chronic diastolic CHF (congestive heart failure) Pneumonia (Acute) Sepsis due to pneumonia Hyperparathyroidism Hypercalcemia Anticoagulant long-term use Precordial chest pain (Acute) (HFpEF) heart failure with preserved ejection fraction Paroxysmal A-fib Chronic heart failure with preserved ejection fraction (HFpEF) Labile hypertension Sinus pause Chest pain, atypical Hypertension (Acute) Hypothyroidism KIM (acute kidney injury) (Acute) Acute on chronic heart failure with preserved ejection fraction (HFpEF) Greater trochanteric bursitis of right hip Anxiety (Chronic) Chronic osteoarthritis (Chronic) GERD (gastroesophageal reflux disease) (Chronic) DJD of left shoulder Primary osteoarthritis, right shoulder Diarrhea (Acute) Urinary incontinence (Chronic) Syncope and collapse Arthritis of right shoulder region (Acute) Depression with anxiety (Acute) Insomnia (Acute) Ambulatory dysfunction (Acute) Arthritis Depression Medical History Mobitz type 1 second degree AV block (10/2023) Somatic dysfunction of sacroiliac joint History of blood transfusion 2012 03/ GASTRIC ULCER History of gastric ulcer 2012 Spinal stenosis Gastric ulcer Atrial fibrillation with rapid ventricular response (11/2022) Fall Moderate mitral regurgitation Transient ischemic attack (TIA) ~2012>REASON FOR PLAVIX Osteoarthritis Chronic back pain Dyslipidemia Chronic kidney disease stage 3 Hypertension Surgical History 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 History of cardiac cath NO STENTS History of coronary artery bypass graft 1998 (1 VESSEL) S/P epidural steroid injection History of esophagogastroduodenoscopy (EGD) S/p reverse total shoulder arthroplasty RT/LEFT History of abdominoplasty PANNICULECTOMY History of colonoscopy History of arthroplasty of right hip History of arthroplasty of left hip History of hysterectomy with oophorectomy History of arthroplasty of left shoulder History of tonsillectomy and adenoidectomy H/O bilateral salpingo-oophorectomy with hyter Family History Father , age 74 Allergic reaction Mother , 80s CHF (congestive heart failure) Other No family history of adverse response to anesthesia Social History Smoking Status: Never smoker Second Hand Exposure: No; Do You Dip or Chew Tobacco: No; Hx Alcohol Use: No Hx Substance Use: No Preferred Language: German Communication Ability: Effective Visual Impairment: No 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 ENT- oropharynx clear Neck- supple, no JVD. Lungs- clear to auscultation no wheezing or crackles Heart- regular rhythm; no murmur, no gallop. Abdomen- normal bowel sounds, soft, nontender, no distension Extremities- mild pretibial edema present, no erythema seen Neuro- alert, oriented PERRL, no facial palsy; no dysarthria; moves extremities Results & Data Results & Data Vital Signs (Past 12 Hours) Vital Signs Temp Pulse Pulse Resp BP BP Pulse Ox 05/18/24 21:11 92 H 175/127 H 05/18/24 20:33 91 H 18 196/96 H 100 05/18/24 18:48 83 05/18/24 18:35 81 20 189/96 H 98 05/18/24 18:35 74 19 98 05/18/24 18:09 82 05/18/24 18:04 36.8 C 85 20 189/96 H 98 O2 Del Method 05/18/24 21:11 05/18/24 20:33 Nebulizer 05/18/24 18:48 05/18/24 18:35 Room Air 05/18/24 18:35 Room Air 05/18/24 18:09 05/18/24 18:04 Room Air Diagnostic Findings Laboratory Results WBC 5.07 K/ul (4.8-10.8) 05/18/24 18: RBC 4.35 M/uL (4.20-5.40) 05/18/24 18:25 Hgb 12.3 g/dl (12.0-16.0) 05/18/24 18:25 Hct 37.6 % (37.0-47.0) 05/18/24 18:25 MCV 86.4 fL (80.0-100.0) 05/18/24 18:25 MCH 28.3 pg (25.0-34.0) 05/18/24 18: MCHC 32.7 g/dL (32.0-36.0) 05/18/24 18:25 RDW Std Deviation 54.8 fL (36.4-46.3) H 05/18/24 18:25 RDW Coeff of Howie 17.2 % (11.5-14.5) H 05/18/24 18:25 Plt Count 170 K/uL (130-400) 05/18/24 18:25 MPV 9.8 fL (9.4-12.4) 05/18/24 18:25 Immature Gran % (Auto) 0.2 % 05/18/24 18:25 Neut % (Auto) 55.7 % 05/18/24 18:25 Lymph % (Auto) 29.6 % 05/18/24 18:25 Graham % (Auto) 10.7 % 05/18/24 18:25 Eos % (Auto) 2.8 % 05/18/24 18:25 Baso % (Auto) 1.0 % 05/18/24 18:25 Neut # (Auto) 2.83 K/uL (1.40-6.50) 05/18/24 18:25 Lymph # (Auto) 1.50 K/uL (1.20-3.40) 05/18/24 18:25 Graham # (Auto) 0.54 K/uL (0.11-0.59) 05/18/24 18:25 Eos # (Auto) 0.14 K/uL (0.00-0.50) 05/18/24 18:25 Baso # (Auto) 0.05 K/uL (0.00-0.20) 05/18/24 18:25 Immature Gran # (Auto) 0.01 K/uL (0.01-0.20) 05/18/24 18:25 PT 12.3 Seconds (9.0-12.0) H 05/18/24 18:25 INR 1.1 (0.9-1.1) 05/18/24 18:25 Sodium 137 mmol/L (136-145) 05/18/24 18:25 Potassium 4.0 mmol/L (3.5-5.1) 05/18/24 18:25 Chloride 107 mmol/L (98-107) 05/18/24 18:25 Carbon Dioxide 22 mmol/L (21-32) 05/18/24 18:25 Anion Gap 8 (3-11) 05/18/24 18:25 BUN 14 mg/dl (6-23) 05/18/24 18:25 Creatinine 1.03 mg/dl (0.6-1.2) 05/18/24 18:25 Est Cr Clr Drug Dosing 37.9 ml/min 05/18/24 18:25 eGFR 52.63 05/18/24 18:25 BUN/Creatinine Ratio 13.6 (10-20) 05/18/24 18: Glucose 88 mg/dl (70-99(Fasting)) 05/18/24 18: Calcium 10.4 mg/dl (8.6-10.3) H 05/18/24 18: Magnesium 1.7 mg/dl (1.7-2.4) 05/18/24 18: Total Bilirubin 1.0 mg/dl (0.2-1.0) 05/18/24 18: AST 15 U/L (13-39) 05/18/24 18: ALT 14 U/L (7-52) 05/18/24 18: Alkaline Phosphatase 58 U/L (34-104) 05/18/24 18: Troponin I High Sens 8.9 pg/ml (0-14) 05/18/24 18: B-Natriuretic Peptide 407 pg/ml (0-100) H 05/18/24 18: Total Protein 7.2 gm/dl (6.0-8.3) 05/18/24 18: Albumin 4.0 gm/dl (3.4-5.0) 05/18/24 18: Globulin 3.2 gm/dl (2.5-4.0) 05/18/24 18: Albumin/Globulin Ratio 1.3 (0.9-2) 05/18/24 18:25 Lipase 31 U/L (11-82) 05/18/24 18: Procalcitonin 0.04 ng/ml (0-0.5) 05/18/24 21:00 Urine Color Yellow 05/18/24 18:25 Urine Appearance Clear (Clear) 05/18/24 18: Urine pH 8.0 (4.5-7.5) H 05/18/24 18: Ur Specific [place] 1.014 (1.000-1.030) 05/18/24 18: Urine Protein 1+ (Negative) H 05/18/24 18:25 Urine Glucose (UA) Negative (Negative) 05/18/24 18: Urine Ketones 1+ (Negative) H 05/18/24 18: Urine Blood Trace (Negative) H 05/18/24 18:25 Urine Nitrite Positive (Negative) A 05/18/24 18:25 Urine Bilirubin Negative (Negative) 05/18/24 18:25 Urine Urobilinogen Negative (Negative) 05/18/24 18:25 Ur Leukocyte Esterase Trace (Negative) H 05/18/24 18:25 Urine WBC (Auto) 11-20 /hpf (0-5) H 05/18/24 18:25 Urine RBC (Auto) 3-5 /hpf (0-2) H 05/18/24 18:25 U Hyaline Cast (Auto) 0-2 /lpf (0-2) 05/18/24 18:25 U Epithel Cells (Auto) 0-2 /hpf (0-2) 05/18/24 18:25 Urine Bacteria (Auto) 4+ (None Seen) H 05/18/24 18:25 Adenovirus (PCR) Not Detected (NotDetected) 05/18/24 18:25 B. pertussis DNA (PCR) Not Detected (NotDetected) 05/18/24 18:25 B.parapertussis DNA PCR Not Detected (NotDetected) 05/18/24 18:25 C. pneumoniae DNA (PCR) Not Detected (NotDetected) 05/18/24 18:25 Coronavirus OC43 (PCR) Not Detected (NotDetected) 05/18/24 18:25 Coronavirus HKU1 (PCR) Not Detected (NotDetected) 05/18/24 18:25 Coronavirus 229E (PCR) Not Detected (NotDetected) 05/18/24 18:25 SARS-CoV-2 (PCR) Not Detected (NotDetected) 05/18/24 18:25 Coronavirus NL63 (PCR) Not Detected (NotDetected) 05/18/24 18:25 Human Metapneumovir PCR Not Detected (NotDetected) 05/18/24 18:25 Influenza Type A (PCR) Not Detected (NotDetected) 05/18/24 18:25 Influenza Type B (PCR) Not Detected (NotDetected) 05/18/24 18:25 M. pneumoniae (PCR) Not Detected (NotDetected) 05/18/24 18:25 Parainfluenza 1 (PCR) Not Detected (NotDetected) 05/18/24 18:25 Parainfluenza 2 (PCR) Not Detected (NotDetected) 05/18/24 18:25 Parainfluenza 3 (PCR) Not Detected (NotDetected) 05/18/24 18:25 Parainfluenza 4 (PCR) Not Detected (NotDetected) 05/18/24 18:25 RSV (PCR) Not Detected (NotDetected) 05/18/24 18:25 Entero/Rhino (PCR) Not Detected (NotDetected) 05/18/24 18:25 Impressions Chest X-Ray 05/18/24 18:07 Exam(s): XR CXR 1 VIEW EXAM: XR Chest, 1 View CLINICAL HISTORY: Reason for exam: Chest pain, nonspecific. TECHNIQUE: Frontal view of the chest. COMPARISON: 04/25/24 FINDINGS: Lungs: Unremarkable. No consolidation. Pleural space: Unremarkable. No pneumothorax. Heart: Mild cardiomegaly. Mediastinum: Small hiatus hernia. Bones/joints: Bilateral glenohumeral joint arthroplasty. No acute fracture. IMPRESSION: No acute pulmonary process identified Small hiatus hernia Electronically signed by: Mauricio Blackwood MD 05/18/24 22:07 PM Chest CTA 05/18/24 20:05 Exam(s): CTA CHEST IV Amt: OPTIRAY [id number] EXAM: CT Angiography Chest With Intravenous Contrast CLINICAL HISTORY: Reason for exam: sob, r/o PE. TECHNIQUE: Axial computed tomographic angiography images of the chest with intravenous contrast. CTDI is 15.95 mGy and DLP is 495.1 mGy-cm. Automated exposure control was utilized for the study. A dose lowering technique was utilized adhering to the principles of ALARA. MIP reconstructed images were created and reviewed. COMPARISON: 11/03/23 FINDINGS: Pulmonary arteries: Unremarkable. No pulmonary embolism. Aorta: No acute findings. No thoracic aortic aneurysm. Lungs: Discoid atelectasis seen in bilateral lower lobes. No mass. Pleural space: Unremarkable. No significant effusion. No pneumothorax. Heart: Mild cardiomegaly. No significant pericardial effusion. No evidence of RV dysfunction. Mediastinum: Moderate sized hiatus hernia. Bones/joints: No acute fracture. No dislocation. There is mild dextroscoliosis seen in the thoracic spine. Lymph nodes: Unremarkable. No enlarged lymph nodes. Spleen: Calcified granulomas are seen in the spleen. Kidneys and ureters: There is any ureter is dilated, measuring 4.4 cm in diameter. IMPRESSION: 1. No acute pulmonary embolism 2. Dilated ascending aorta. 3. Hiatus hernia, also seen on the prior study from 11/03/23 Electronically signed by: Mauricio Blackwood MD 05/18/24 21:59 PM ECG Additional Comments: ECG. Atrial fibrillation at rate of 79. Nonspecific T wave abnormalities.
[2024-05-19] MEDS ORDERED: LABETALOL HCL IV 5 MG/ML 20ML IV PRN (00:17)
[2024-05-19] MEDS ORDERED: ACETAMINOPHEN 325 MG TAB PO PRN (00:17)
[2024-05-19] MEDS ORDERED: POLYETHYLENE (MIRALAX) 17 GM PACK PO PRN (00:17)
[2024-05-19] MEDS: APIXABAN 2.5 MG TAB PO STA (00:37)
[2024-05-19] MEDS: traZODone HCL 50 MG TAB PO STA (00:37)
[2024-05-19] MEDS: busPIRone 7.5 MG TAB PO STA (00:37)
[2024-05-19] MEDS: MELATONIN 3 MG TAB PO STA (00:40)
[2024-05-19] MEDS: SODIUM CHLORIDE 0.9% 1,000 ML IV SCH (06:06)
[2024-05-19] MEDS: LEVOTHYROXINE SODIUM 75 MCG TABLET PO SCH (06:07)
[2024-05-19 06:13] LABS: Basophils # (auto) 0.05 K/uL (0.00-0.20); Eosinophils # (auto) 0.23 K/uL (0.00-0.50); Eosinophils % (auto) 4.7 %; Hematocrit (blood only) 35.2 % (37.0-47.0); Hemoglobin 11.4 g/dl (12.0-16.0); Immature Granulocytes # (auto) 0.01 K/uL (0.01-0.20); Immature Granulocytes % (auto) 0.2 %; Lymphocytes # (auto) 1.75 K/uL (1.20-3.40); Lymphocytes % (auto) 35.6 %; Mean Corpuscular Hemoglobin 28.6 pg (25.0-34.0); Mean Corpuscular Hgb Conc 32.4 g/dL (32.0-36.0); Mean Corpuscular Volume 88.2 fL (80.0-100.0); Mean Platelet Volume 9.6 fL (9.4-12.4); Monocytes # (auto) 0.69 K/uL (0.11-0.59); Monocytes % (auto) 14.1 %; Neutrophils # (auto) 2.18 K/uL (1.40-6.50); Neutrophils % (auto) 44.4 %; Platelet Count 142 K/uL (130-400); RDW Coefficient of Variation 17.3 % (11.5-14.5); RDW Standard Deviation 56.4 fL (36.4-46.3); Red Blood Count 3.99 M/uL (4.20-5.40); White Blood Count 4.91 K/ul (4.8-10.8)
[2024-05-19 06:25] LABS: BUN Creatinine Ratio 11.1 (10-20); Calcium 9.8 mg/dl (8.6-10.3); Magnesium 1.7 mg/dl (1.7-2.4); Potassium 3.6 mmol/L (3.5-5.1)
--- NOTE | 2024-05-19 08:20 | Hospitalist Progress Note ---
Date of Service May 19, 2024 Assessment & Plan (1) Acute UTI: Plan: Zoay Howard (Cecilia) is an 85y/o F with PMHx significant for acquired hypothyroidism, hypercalcemia, hiatal hernia, thoracic aortic ectasia, chronic diastolic CHF, CAD s/p CABG x 2, HTN, chronic atrial fibrillation anticoagulated on Eliquis, mild aortic stenosis, GERD with esophagitis, generalized osteoarthritis, scoliosis of lumbar spine, bilateral shoulder region arthritis, lumbar DDD, greater trochanteric bursitis of right hip, spondylosis of lumbar region without myelopathy or radiculopathy, depression/anxiety, persistent insomnia, mixed urge and stress urinary incontinence, history of gastric ulcer and cognitive deficits who presented to the ED via EMS from home on 05/18/2024 with complaint of SOB and was found to have an acute UTI. Continue IV Rocephin pending urine culture results. Did have some nausea this morning. Previously had some vomiting over the last few days. Transition to clear liquid diet for now. Can advance SIMÓN. PRN IV Phenergan ordered for N/V. Check KUB. (2) SOB (shortness of breath): Plan: CXR and chest CTA on admission both unremarkable. Respiratory BioFire panel negative. Likely component of anxiety contributing as patient has been without her home medications, including her BuSpar, for the past 4 days. Not requiring supplemental oxygen at this time. (3) Hypertension: Plan: BP controlled this morning. Continue amlodipine and Toprol XL. PRN IV labetalol for SBP>170. (4) Chronic diastolic CHF (congestive heart failure): Plan: Trace crackles and trace BLE pretibial edema on exam this morning. BNP 407 on admission. IVF stopped. Prior TTE from earlier this month with normal LV wall motion, LVEF = 60-65%. Will give 20mg IV Lasix today and reassess volume status in AM. (5) Generalized anxiety disorder: Plan: Continue BuSpar. C/o some increased anxiety today. Will start some hydroxyzine PRN as this has worked well in the past for her. Other Chronic Medical Conditions: Chronic AFib - Rate-controlled, continue Eliquis and Toprol XL. HTN/CAD - Continue statin. Hypothyroidism - Will check TSH in AM. Continue levothyroxine. GERD - Continue PPI. Generalized Osteoarthritis - Continue gabapentin. DVT Prophylaxis: On Eliquis - continue. Code Status: FULL CODE PCP: Gilbert Calloway MD Disposition: Obtain PT/OT evaluations to determine any discharge needs. Patient seen in collaboration with Dr. Phan. Please see addendum. I spent a total of 40 minutes coordinating, documenting, and providing care for this patient excluding time spent in the performance of separately billed services or time spent by another provider/QHP. This included personally reviewing all current laboratories and imaging studies, medical reconciliation, outpatient chart review and discussion with specialists. This chart was completed in part utilizing Speech Voice Recognition Software. Grammatical errors, random word insertions, pronoun errors, and incomplete sentences are an occasional consequence of this system due to software limitations, ambient noise, and hardware issues. Any formal questions or concerns about the content, text, or information contained within the body of this dictation should be directly addressed to the provider for clarification. Admission and Anticipated Discharge Date Admission Date: May 18, 2024 Supervising Physician Co-Signing Physician Notes Pt seen and examined by me, care coordinated w/ PA, pls refer to her note above for further detail. Pt admitted for UTI, also on admission felt short of breath. Reports not taking her medications for several days.Currently sitting up in bed in [facility], reports feeling better since yesterday, denies shortness of breath, but had some nausea after breakfast. Pt says she could not eat anything for past 2 days prior to admission. Heart sounds regular, mild bibasilar crackles,no wheezing. abdomen soft, nontender. Pt is awake and answers appropriately, moves extremities. Cont. emp. abx for UTI, follow cultx. Cont. to closely monitor. MD Emilie Subjective Patient seen and examined in room N278-1. NAEO. Endorses BROUSSARD this morning whilst walking to the bathroom. Was having some SOB at rest yesterday however states this has resolved. Not requiring any supplemental oxygen support. Denies any cough, congestion or fevers. Reviewed chest imaging from yesterday, including CXR and chest CTA, which were grossly unremarkable. Found to have UTI on admission however denies any urinary complaints such as dysuria, increase in urinary frequency or hematuria. Notes she has been feeling quite fatigued and generally weak over the past few days. No recent falls or bodily trauma. Patient currently resides at [facility] in one of their independent- living apartments. Does not use a cane or walker for ambulation. Did have some episodes of vomiting over the past few days. Feeling nauseous this morning but no vomiting. Denies any abdominal pain. Had BM this morning. Review of Systems Review of Systems: At least ten systems reviewed and negative, except as noted in the subjective section. Physical Exam Physical Exam: General: WD/WN. Elderly F. NAD. Sitting up in bed, very pleasant. Conversing appropriately. A+Ox3. HEENT: Normocephalic, atraumatic. Conjunctivae normal. External ear and nose normal, oropharynx moist. Respiratory: Normal respiratory effort. Trace crackles in both lung bases. Saturating well on RA. No accessory muscle use. Cardiovascular: Regular rate. Irregularly irregular rhythm. Normal peripheral pulses. Trace BLE pretibial edema. Abdomen/GI: Normal bowel sounds, soft. Nondistended, nontender to palpation in all quadrants. Extremities/Musculoskeletal: No cyanosis or clubbing. Extremities motor strength intact, actively moves all extremities. Neurologic: No overt focal deficits, CN's II-XI not formally tested but appear grossly intact bilaterally. Results & Data Results & Data Vital Signs (Past 12 Hours) Vital Signs Temp Pulse Pulse Resp BP BP Pulse Ox 05/19/24 07:46 36.7 C 77 16 139/72 95 05/19/24 06:39 65 05/19/24 02:25 73 05/19/24 02:04 36.5 C 73 16 159/78 H 96 05/18/24 23:49 72 148/92 H 05/18/24 22:38 98 H 05/18/24 22:00 95 H 16 148/92 H 98 05/18/24 21:11 92 H 175/127 H 05/18/24 20:33 91 H 18 196/96 H 100 O2 Del Method 05/19/24 07:46 Room Air 05/19/24 06:39 05/19/24 02:25 05/19/24 02:04 Room Air 05/18/24 23:49 05/18/24 22:38 05/18/24 22:00 05/18/24 21:11 05/18/24 20:33 Nebulizer Laboratory Results Short CBC 05/18/24 05/19/24 Range/Units 18:25 05:26 WBC 5.07 4.91 (4.8-10.8) K/ul Hgb 12.3 11.4 L (12.0-16.0) g/dl Hct 37.6 35.2 L (37.0-47.0) % Plt Count 170 142 (130-400) K/uL BMP 05/18/24 05/19/24 18:25 05:26 Sodium 137 138 Potassium 4.0 3.6 Chloride 107 107 Carbon Dioxide 22 24 BUN 14 13 Creatinine 1.03 1.17 Glucose 88 89 Calcium 10.4 H 9.8 Liver Function 05/18/24 Range/Units 18:25 Total Bilirubin 1.0 (0.2-1.0) mg/dl AST 15 (13-39) U/L ALT 14 (7-52) U/L Alkaline Phosphatase 58 (34-104) U/L Albumin 4.0 (3.4-5.0) gm/dl Urine 05/18/24 Range/Units 18:25 Urine Color Yellow Urine Appearance Clear (Clear) Urine pH 8.0 H (4.5-7.5) Ur Specific [place] 1.014 (1.000-1.030) Urine Protein 1+ H (Negative) Urine Glucose (UA) Negative (Negative) Diagnostic Findings Chest X-Ray 05/18/24 18:07 Exam(s): XR CXR 1 VIEW EXAM: XR Chest, 1 View CLINICAL HISTORY: Reason for exam: Chest pain, nonspecific. TECHNIQUE: Frontal view of the chest. COMPARISON: 04/25/24 FINDINGS: Lungs: Unremarkable. No consolidation. Pleural space: Unremarkable. No pneumothorax. Heart: Mild cardiomegaly. Mediastinum: Small hiatus hernia. Bones/joints: Bilateral glenohumeral joint arthroplasty. No acute fracture. IMPRESSION: No acute pulmonary process identified Small hiatus hernia Electronically signed by: Mauricio Blackwood MD 05/18/24 22:07 PM Chest CTA 05/18/24 20:05 Exam(s): CTA CHEST IV Amt: OPTIRAY [id number] EXAM: CT Angiography Chest With Intravenous Contrast CLINICAL HISTORY: Reason for exam: sob, r/o PE. TECHNIQUE: Axial computed tomographic angiography images of the chest with intravenous contrast. CTDI is 15.95 mGy and DLP is 495.1 mGy-cm. Automated exposure control was utilized for the study. A dose lowering technique was utilized adhering to the principles of ALARA. MIP reconstructed images were created and reviewed. COMPARISON: 11/03/23 FINDINGS: Pulmonary arteries: Unremarkable. No pulmonary embolism. Aorta: No acute findings. No thoracic aortic aneurysm. Lungs: Discoid atelectasis seen in bilateral lower lobes. No mass. Pleural space: Unremarkable. No significant effusion. No pneumothorax. Heart: Mild cardiomegaly. No significant pericardial effusion. No evidence of RV dysfunction. Mediastinum: Moderate sized hiatus hernia. Bones/joints: No acute fracture. No dislocation. There is mild dextroscoliosis seen in the thoracic spine. Lymph nodes: Unremarkable. No enlarged lymph nodes. Spleen: Calcified granulomas are seen in the spleen. Kidneys and ureters: There is any ureter is dilated, measuring 4.4 cm in diameter. IMPRESSION: 1. No acute pulmonary embolism 2. Dilated ascending aorta. 3. Hiatus hernia, also seen on the prior study from 11/03/23 Electronically signed by: Mauricio Blackwood MD 05/18/24 21:59 PM (3) Hypertension Hypertension type: unspecified Qualified Code(s): I10 - Essential (primary) hypertension
--- NOTE | 2024-05-19 08:28 | Electrocardiogram Report ---
Test Reason : Blood Pressure : */* mmHG Vent. Rate : 79 BPM Atrial Rate : * BPM P-R Int : * ms QRS Dur : 82 ms QT Int : 382 ms P-R-T Axes : * 39 17 degrees QTcB Int : 438 ms Atrial fibrillation Low voltage QRS Possible Old Septal infarct (cited on or before 13-Dec-2023) Abnormal ECG When compared with ECG of 25-Apr-2024 17:29, No significant change Confirmed by Noah Adams ([id number]) on 05/19/2024 8:27:49 AM Referred By: Confirmed By: Noah Adams
[2024-05-19] MEDS: cefTRIAXone SODIUM 2,000 MG/50 ML BAG IV SCH (08:35)
[2024-05-19] MEDS: MAGNESIUM SULFATE / D5W 1 GM/100 ML BAG IV ONE (09:28)
[2024-05-19] MEDS: PROMETHAZINE 6.25 MG/50.25 ML BAG IV PRN (09:44)
[2024-05-19] MEDS: CALCITRIOL 0.25 MCG CAPSULE PO SCH (10:16)
[2024-05-19] MEDS: busPIRone 15 MG TAB PO SCH (10:16)
[2024-05-19] MEDS: amLODIPine BESYLATE 5 MG TAB PO SCH (10:16)
[2024-05-19] MEDS: ROSUVASTATIN CALCIUM 10 MG TAB PO SCH (10:16)
[2024-05-19] MEDS: FERROUS SULFATE 325 MG TAB PO SCH (10:16)
[2024-05-19] MEDS: GABAPENTIN 100 MG CAP PO SCH (10:16)
[2024-05-19] MEDS: APIXABAN 2.5 MG TAB PO SCH (10:16)
[2024-05-19] MEDS: METOPROLOL SUCC 25MG EXT REL TAB PO SCH (10:16)
[2024-05-19] MEDS: hydrOXYzine HCl 10 MG TAB PO PRN (12:24)
[2024-05-19] MEDS: PANTOprazole 40 MG TAB PO SCH (12:24)
[2024-05-19] MEDS: FUROSEMIDE INJ 20 MG/2 ML VIAL IV ONE (14:35)
--- NOTE | 2024-05-19 14:59 | XRay Report ---
KUB CLINICAL HISTORY: Nausea. COMPARISON STUDY: CT of the abdomen and pelvis December 07, 2022. KUB December 14, 2023. FINDINGS: Bilateral hip arthroplasties are partially imaged. There is contrast within the bladder fro m recent contrast-enhanced CT. Bowel gas pattern is normal. Lumbar spine levoscoliosis is incidentall y noted. IMPRESSION: No evidence for a bowel obstruction. ACT 112: Negative or not required by law. Electronically signed by: Anthony Borden M.D. 05/19/2024 2:58 PM
[2024-05-19] MEDS: traZODone HCL 50 MG TAB PO SCH (22:06)
[2024-05-19] MEDS: MELATONIN 3 MG TAB PO SCH (22:06)
[2024-05-20] MEDS: LOPERAMIDE HCL 2 MG CAP PO STA (05:29)
[2024-05-20 06:38] LABS: Hematocrit (blood only) 34.9 % (37.0-47.0); Hemoglobin 11.1 g/dl (12.0-16.0); Mean Corpuscular Hgb Conc 31.8 g/dL (32.0-36.0); Mean Corpuscular Volume 88.1 fL (80.0-100.0); Mean Platelet Volume 9.8 fL (9.4-12.4); Platelet Count 142 K/uL (130-400); RDW Coefficient of Variation 17.5 % (11.5-14.5); RDW Standard Deviation 56.9 fL (36.4-46.3); Red Blood Count 3.96 M/uL (4.20-5.40)
--- NOTE | 2024-05-20 06:59 | Hospitalist Progress Note ---
<Statement entered by Brendon Ardon, DO - 05/20/24 14:36> I have seen and examined the patient and have discussed the case with the advance practice provider. I have reviewed the advanced practitioner's documentation, and I agree with, and take responsibility for that plan of care. Patient denies any acute pains or issues. Short-term memory is very poor. Patient continues to decline assisted living/personal care. Have discussed this with her previously and today at bedside. She reports she is not interested in returning to [facility] care. Reviewed urine culture, question whether this is true infection versus colonization, can consider transitioning to Macrobid Case management to continue to work with discharge planning Further plan of care as outlined below I spent a total of 17 minutes coordinating, documenting, and providing care for this patient excluding time spent by another provider/QHP. Date of Service May 20, 2024 Assessment & Plan (1) Acute UTI: Plan: Zoya Howard (Cecilia) is an 85y/o F with PMHx significant for acquired hypothyroidism, hypercalcemia, hiatal hernia, thoracic aortic ectasia, chronic diastolic CHF, CAD s/p CABG x 2, HTN, chronic atrial fibrillation anticoagulated on Eliquis, mild aortic stenosis, GERD with esophagitis, generalized osteoarthritis, scoliosis of lumbar spine, bilateral shoulder region arthritis, lumbar DDD, greater trochanteric bursitis of right hip, spondylosis of lumbar region without myelopathy or radiculopathy, depression/anxiety, persistent insomnia, mixed urge and stress urinary incontinence, history of gastric ulcer and cognitive deficits who presented to the ED via EMS from home on 05/18/2024 with complaint of SOB and was found to have an acute UTI. Urine culture growing ESBL E. coli therefore IV Rocephin transitioned to po Macrobid. Previously had some vomiting over the last few days - now resolved and tolerating a diet. KUB unremarkable. Was having some diarrhea overnight however suspect 2/2 ABX as C. diff testing was negative. Probiotic added on. (2) SOB (shortness of breath): Plan: CXR and chest CTA both unremarkable. Respiratory BioFire panel negative. Likely component of anxiety contributing as patient has been without her home medications, including her BuSpar, for the past 4 days. Not requiring supplemental oxygen at this time. SOB improved. (3) Hypertension: Plan: BP controlled this morning. Continue amlodipine and Toprol XL. (4) Chronic diastolic CHF (congestive heart failure): Plan: Acute on chronic diastolic CHF treated with IV Lasix. S/p 20mg IV Lasix on 05/19 with improvement on BLE edema and bibasilar crackles. Appears euvolemic today. Prior TTE from earlier this month with normal LV wall motion, LVEF = 60-65%. Continue daily weights, monitor I&Os. (5) Generalized anxiety disorder: Plan: Continue BuSpar. C/o some increased anxiety on 05/19. Hydroxyzine PRN added on which is helping significantly - continue. Other Chronic Medical Conditions: CKD Stage IIIb - Cr remains stable. Baseline Cr varies b/n 1.1-1.4 per chart review. Chronic AFib - Rate-controlled, continue Eliquis and Toprol XL. HTN/CAD - Continue statin. Hypothyroidism - Will check TSH in AM. Continue levothyroxine. GERD - Continue PPI. Generalized Osteoarthritis - Continue gabapentin. DVT Prophylaxis: On Eliquis - continue. Code Status: FULL CODE PCP: Gilbert Calloway MD Disposition: Will need to refill all of her home medications on discharge as she has run out of them. OT recommending rehab, appreciate assistance of CM. Patient currently living in the independent-living side of [facility]. Would strongly benefit from services if returning home. Downgrade to med/surg. Patient seen in collaboration with Dr. Ardon. Please see addendum. I spent a total of 35 minutes coordinating, documenting, and providing care for this patient excluding time spent in the performance of separately billed ser vices or time spent by another provider/QHP. This included personally reviewing all current laboratories and imaging studies, medical reconciliation, outpatient chart review and discussion with specialists. This chart was completed in part utilizing Speech Voice Recognition Software. Grammatical errors, random word insertions, pronoun errors, and incomplete sentences are an occasional consequence of this system due to software limitations, ambient noise, and hardware issues. Any formal questions or concerns about the content, text, or information contained within the body of this dictation should be directly addressed to the provider for clarification. Admission and Anticipated Discharge Date Admission Date: May 18, 2024 Subjective Patient seen and examined in N278-1. Did have some diarrhea overnight which is likely from the ABX as C. diff testing was negative. Notes she has been dealing with some fecal incontinence for the past 3-4 months. Feels her SOB is significantly improving as well as her anxiety with the hydroxyzine being added on yesterday. Denies any chest pain. No issues with urination. Mentions she did well with therapy yesterday. Feels her weakness is improving. Review of Systems 2 Review of Systems: At least ten systems reviewed and negative, except as noted in the subjective section. Physical Exam Physical Exam: General: WD/WN. Elderly F. NAD. Sitting up in bed, very pleasant. Conversing appropriately. A+Ox3. HEENT: Normocephalic, atraumatic. Conjunctivae normal. External ear and nose normal, oropharynx moist. Respiratory: Normal respiratory effort. Decreased breath sounds throughout. Saturating well on RA. No accessory muscle use. Cardiovascular: Regular rate. Irregularly irregular rhythm. Normal peripheral pulses. No BLE edema. Abdomen/GI: Normal bowel sounds, soft. Nondistended, nontender to palpation in all quadrants. Extremities/Musculoskeletal: No cyanosis or clubbing. Extremities motor strength intact, actively moves all extremities. Neurologic: No overt focal deficits, CN's II-XI not formally tested but appear grossly intact bilaterally. Results & Data Results & Data Vital Signs (Past 12 Hours) Vital Signs Temp Pulse Pulse Resp BP Pulse Ox O2 Del Method 05/20/24 02:07 36.9 C 73 16 106/68 96 Room Air 05/19/24 22:31 36.6 C 92 H 18 117/72 96 Room Air 05/19/24 21:44 67 05/19/24 19:50 Room Air 05/19/24 19:18 36.7 C 77 18 121/75 91 Room Air Laboratory Results Short CBC 05/20/24 Range/Units 06:01 WBC 4.70 L (4.8-10.8) K/ul Hgb 11.1 L (12.0-16.0) g/dl Hct 34.9 L (37.0-47.0) % Plt Count 142 (130-400) K/uL BMP 05/20/24 06:01 Sodium 140 Potassium 3.5 Chloride 108 H Carbon Dioxide 28 BUN 13 Creatinine 1.25 H Glucose 89 Calcium 9.6 (3) Hypertension Hypertension type: unspecified Qualified Code(s): I10 - Essential (primary) hypertension
[2024-05-20 07:06] LABS: BUN Creatinine Ratio 10.4 (10-20); Calcium 9.6 mg/dl (8.6-10.3); Potassium 3.5 mmol/L (3.5-5.1)
[2024-05-20 07:21] LABS: Thyroid Stimulating Hormone 1.349 uIu/ml (0.300-4.500)
[2024-05-20] MEDS: ADVANCED PROBIOTIC 625 MG CAPSULE PO SCH (12:00)
[2024-05-20] MEDS: ERTAPENEM 500MG 500 MG/5 ML SYR IV SCH (12:00)
[2024-05-20] MEDS: NITROFURANTOIN MONOHYDRATE 100 MG CAP PO SCH (13:00)
[2024-05-21 06:50] LABS: Hematocrit (blood only) 35.1 % (37.0-47.0); Mean Corpuscular Hemoglobin 27.9 pg (25.0-34.0); Mean Corpuscular Hgb Conc 31.3 g/dL (32.0-36.0); Mean Corpuscular Volume 89.1 fL (80.0-100.0); Mean Platelet Volume 9.9 fL (9.4-12.4); Platelet Count 137 K/uL (130-400); RDW Coefficient of Variation 17.1 % (11.5-14.5); RDW Standard Deviation 55.4 fL (36.4-46.3); Red Blood Count 3.94 M/uL (4.20-5.40); White Blood Count 4.77 K/ul (4.8-10.8)
[2024-05-21 07:13] LABS: BUN Creatinine Ratio 13.1 (10-20); Calcium 9.7 mg/dl (8.6-10.3); Creatinine Clr Calc Pharmacy 26.4 ml/min; Potassium 3.9 mmol/L (3.5-5.1)
--- NOTE | 2024-05-21 07:50 | Hospitalist Progress Note ---
Date of Service May 21, 2024 Assessment & Plan (1) Acute UTI: Plan: Zoya Howard (Cecilia) is an 85y/o F with PMHx significant for acquired hypothyroidism, hypercalcemia, hiatal hernia, thoracic aortic ectasia, chronic diastolic CHF, CAD s/p CABG x 2, HTN, chronic atrial fibrillation anticoagulated on Eliquis, mild aortic stenosis, GERD with esophagitis, generalized osteoarthritis, scoliosis of lumbar spine, bilateral shoulder region arthritis, lumbar DDD, greater trochanteric bursitis of right hip, spondylosis of lumbar region without myelopathy or radiculopathy, depression/anxiety, persistent insomnia, mixed urge and stress urinary incontinence, history of gastric ulcer and cognitive deficits who presented to the ED via EMS from home on 05/18/2024 with complaint of SOB and was found to have an acute UTI. Urine culture growing ESBL E. coli therefore IV Rocephin transitioned to po Macrobid. Previously had some vomiting over the last few days - now resolved and tolerating a diet. KUB unremarkable. Was having some diarrhea overnight however suspect 03/23 ABX as C. diff testing was negative. Probiotic added on. (2) SOB (shortness of breath): Plan: CXR and chest CTA both unremarkable. Respiratory BioFire panel negative. Likely component of anxiety contributing as patient has been without her home medications, including her BuSpar, for the past 4 days. Not requiring supplemental oxygen at this time. SOB improved. (3) Hypertension: Plan: BP controlled this morning. Continue amlodipine and Toprol XL. (4) Chronic diastolic CHF (congestive heart failure): Plan: Acute on chronic diastolic CHF treated with IV Lasix. S/p 20mg IV Lasix on 05/19 with improvement on BLE edema and bibasilar crackles. Appears euvolemic today. Prior TTE from earlier this month with normal LV wall motion, LVEF = 60-65%. Continue daily weights, monitor I&Os. (5) Generalized anxiety disorder: Plan: Continue BuSpar. C/o some increased anxiety on 05/19. Hydroxyzine PRN added on which is helping significantly - continue. Other Chronic Medical Conditions: CKD Stage IIIb - Cr remains stable. Baseline Cr varies b/n 1.1-1.4 per chart review. Chronic AFib - Rate-controlled, continue Eliquis and Toprol XL. HTN/CAD - Continue statin. Hypothyroidism - Will check TSH in AM. Continue levothyroxine. GERD - Continue PPI. Generalized Osteoarthritis - Continue gabapentin. DVT Prophylaxis: On Eliquis - continue. Code Status: FULL CODE PCP: Gilbert Calloway MD Disposition: Will need to refill all of her home medications on discharge as she has run out of them. OT recommending rehab, appreciate assistance of CM. Patient currently living in the independent-living side of [facility]. Would strongly benefit from services if returning home. Downgrade to med/surg. Patient seen in collaboration with Dr. Ardon. Please see addendum. I spent a total of minutes coordinating, documenting, and providing care for this patient excluding time spent in the performance of separately billed services or time spent by another provider/QHP. This included personally reviewing all current laboratories and imaging studies, medical reconciliation, outpatient chart review and discussion with specialists. This chart was completed in part utilizing Speech Voice Recognition Software. Grammatical errors, random word insertions, pronoun errors, and incomplete sentences are an occasional consequence of this system due to software limitations, ambient noise, and hardware issues. Any formal questions or concerns about the content, text, or information contained within the body of this dictation should be directly addressed to the provider for clarification. Admission and Anticipated Discharge Date Admission Date: May 18, 2024 Review of Systems Review of Systems: At least ten systems reviewed and negative, except as noted in the subjective section. Results & Data Results & Data Vital Signs (Past 12 Hours) Vital Signs Temp Pulse Resp BP Pulse Ox O2 Del Method 05/20/24 22:13 Room Air 05/20/24 19:57 36.3 C L 62 18 146/82 H 98 Room Air (3) Hypertension Hypertension type: unspecified Qualified Code(s): I10 - Essential (primary) hypertension
[2024-05-21 08:13] VITALS: RESP 18
[2024-05-21 11:38] VITALS: PULSE 59; TEMP 97.5; O2SAT 97
[2024-05-21] MEDS: FOSFOMYCIN TROMETHAMINE 3 GM PACKET PO ONE (13:28)
--- NOTE | 2024-05-21 13:31 | Discharge Summary ---
<Statement entered by Brendon Ardon, DO - 05/21/24 14:35> I have seen and examined the patient and have discussed the case with the advance practice provider. I have reviewed the advanced practitioner's documentation, and I agree with, and take responsibility for that plan of care. Patient stable for discharge. Patient definitely has some short-term memory issues, however still believes she has decision-making capacity. She would definitely benefit from assisted living type of situation that could help her with her medications on a daily basis and even just be a orthopedic shoes salesperson for her on a daily basis. Case management involved with her care and help maximize her services that she can get in her home. Further plan of care as outlined below I spent a total of 12 minutes coordinating, documenting, and providing care for this patient excluding time spent by another provider/QHP. Discharge Summary Date of Service May 21, 2024 Principal Dx & Hospital Course #1 = Principal Diagnosis (1) Acute UTI: Zoya Howard (Cecilia) is an 85y/o F with PMHx significant for acquired hypothyroidism, hypercalcemia, hiatal hernia, thoracic aortic ectasia, chronic diastolic CHF, CAD s/p CABG x 2, HTN, chronic atrial fibrillation anticoagulated on Eliquis, mild aortic stenosis, GERD with esophagitis, generalized osteoarthritis, scoliosis of lumbar spine, bilateral shoulder region arthritis, lumbar DDD, greater trochanteric bursitis of right hip, spondylosis of lumbar region without myelopathy or radiculopathy, depression/anxiety, persistent insomnia, mixed urge and stress urinary incontinence, history of gastric ulcer and cognitive deficits who presented to the ED via EMS from home on 05/18/2024 with complaint of SOB and was found to have an acute UTI. Urine culture grew ESBL E. coli; treated with po Macrobid and then po fosfomycin x 1 dose (CrCl < 30 therefore Macrobid was stopped). (2) SOB (shortness of breath): CXR and chest CTA both unremarkable. Respiratory BioFire panel negative. Likely component of anxiety contributing as patient has been without her home medications at home for 4 days leading up to this admission, including her BuSpar. Did not require supplemental oxygen. SOB improved. (3) Hypertension: BP controlled. Continue amlodipine and Toprol XL. (4) Chronic diastolic CHF (congestive heart failure): Acute on chronic diastolic CHF treated with IV Lasix. Prior TTE from earlier this month with normal LV wall motion, LVEF = 60-65%. S/p 20mg IV Lasix on 05/19 with improvement on BLE edema and bibasilar crackles. Appears euvolemic on discharge. (5) Generalized anxiety disorder: Continue BuSpar. C/o some increased anxiety on 05/19. Hydroxyzine PRN added on which is helping significantly - continue. Other Chronic Medical Conditions: CKD Stage IIIb - Cr remained stable, baseline Cr varies b/n 1.1-1.4 per chart review. Chronic AFib - Rate-controlled, continue Eliquis and Toprol XL. HTN/CAD - Continue statin. Hypothyroidism - TSH WNL. Continue levothyroxine. GERD - Continue PPI. Generalized Osteoarthritis - Continue gabapentin. PCP: Gilbert Calloway MD Disposition: Patient is being discharged in stable condition back to her apartment in the independent-living portion of [facility]. She refused SNF placement which was recommended by OT. CM has sent a referral to [facility] to inquire regarding HH services/therapy. Her home medications were refilled as she reports being out of all of them. Patient seen in collaboration with Dr. Ardon. Please see addendum. I spent a total of 55 minutes coordinating, documenting, and providing care for this patient excluding time spent in the performance of separately billed services or time spent by another provider/QHP. This included personally reviewing all current laboratories and imaging studies, medical reconciliation, outpatient chart review and discussion with specialists. This chart was completed in part utilizing Speech Voice Recognition Software. Grammatical errors, random word insertions, pronoun errors, and incomplete sentences are an occasional consequence of this system due to software limitations, ambient noise, and hardware issues. Any formal questions or concerns about the content, text, or information contained within the body of this dictation should be directly addressed to the provider for clarification. Notes For Next Care Provider Patient would strongly benefit from enrolling in an assisted-living facility. If not agreeable to assisted-living, then would be ideal to look into caregiver support. Patient adamantly refused SNF placement on discharge. She would strongly benefit from getting an outpatient CM arranged if able. Medication Changes From Visit Started on hydroxyzine PRN for anxiety. Admission HPI Per Admitting Provider 85-year-old female with past medical history significant for hypothyroidism, history of hypercalcemia, hiatal hernia, thoracic aortic ectasia, chronic diastolic CHF, CAD status post CABG, hypertension, chronic atrial fibrillation, mild aortic stenosis, GERD, osteoarthritis, degenerative disc disease, depression, persistent insomnia, mixed incontinence urge and stress, history of gastric ulcer, cognitive use, anxiety comes from home because of complaints of shortness of breath and found to have UTI. Patient is very anxious. She says she wants to go home. She says she is doing fine. But then agreed to stay. As per ER, she was complaining of shortness of breath since morning and called 911 several times. Initially refused transport but then called again. Seems she expressed desire to have a nurse come and sit with her. Patient now denies any shortness of breath. Denies any cough. Denies fevers. Denies chest pain. Denies headache. Denies runny nose or sore throat. Denies abdominal pain. States she micturates a lot. Normal bowel movements. Hemodynamics are okay. Afebrile. Patient lives alone. Past medical history. As mentioned above Past surgical history. Abdominal surgery. CABG. Colonoscopy. EGD. Lasering of secondary contract. Reconstruction of the left shoulder joint. Reconstruction of right shoulder joint. Cataracts. Tonsillectomy and adenoidectomy. Total abdominal hysterectomy with removal of tubes. Left total hip replacement. Social history. . No smoking. Alcohol occasional. No drug use. Family history. Brother had CAD, dementia. Mother had CHF. Sister had CAD. Admission Exam Per Admitting Provider General- Anxious Head- atraumatic Eyes- PERRL. ENT- oropharynx clear Neck- supple, no JVD. Lungs- clear to auscultation no wheezing or crackles Heart- regular rhythm; no murmur, no gallop. Abdomen- normal bowel sounds, soft, nontender, no distension Extremities- mild pretibial edema present, no erythema seen Neuro- alert, oriented PERRL, no facial palsy; no dysarthria; moves extremities Discharge Exam General: WD/WN. Elderly F. NAD. Sitting up in bed, very pleasant but often forgetful. Conversing appropriately. A+Ox3. HEENT: Normocephalic, atraumatic. Conjunctivae normal. External ear and nose normal, oropharynx moist. Respiratory: Normal respiratory effort. Decreased breath sounds throughout. Saturating well on RA. No accessory muscle use. Cardiovascular: Regular rate. Irregularly irregular rhythm. Normal peripheral pulses. No BLE edema. Abdomen/GI: Normal bowel sounds, soft. Nondistended, nontender to palpation in all quadrants. Extremities/Musculoskeletal: No cyanosis or clubbing. Extremities motor strength intact, actively moves all extremities. Neurologic: No overt focal deficits, CN's II-XI not formally tested but appear grossly intact bilaterally. Updated Medication List Medication Instructions Recorded Confirmed Type amlodipine 5 mg tablet (Norvasc) 5 mg PO QAM #30 tabs 05/21/24 Rx apixaban 2.5 mg tablet (Eliquis) 2.5 mg PO BID #60 tabs 05/21/24 Rx buspirone 15 mg tablet 15 mg PO BID #60 tabs 05/21/24 Rx calcitriol 0.25 mcg capsule 0.25 mcg PO 3XWK #30 caps 05/21/24 Rx ferrous sulfate 325 mg (65 mg 325 mg PO DAILY #30 tabs 05/21/24 Rx iron) tablet (Feosol) gabapentin 100 mg capsule 100 mg PO BID #60 caps 05/21/24 Rx hydroxyzine HCl 10 mg tablet 10 mg PO Q4H PRN anxiety #20 tabs 05/21/24 Rx levothyroxine 75 mcg tablet 75 mcg PO DAILYBB #30 tabs 05/21/24 Rx (Synthroid) melatonin 10 mg capsule 10 mg PO HS #30 caps 05/21/24 Rx metoprolol succinate 25 mg 25 mg PO QAM #30 tabs 05/21/24 Rx tablet,extended release 24 hr pantoprazole 40 mg tablet,delayed 40 mg PO BID #60 tabs 05/21/24 Rx release rosuvastatin 10 mg tablet 10 mg PO DAILY #30 tabs 05/21/24 Rx trazodone 50 mg tablet 150 mg (3 x 50 mg) PO HS #90 tabs 05/21/24 Rx Hospital Stay Data Consultations 05/18/24 21:03 ED Decision to Admit Stat Diagnostic Imagining Performed 05/18/24 20:05 CT angio chest PE protocol Stat Pending Results Patient Have Any Pending Studies at Discharge: No Discharge Instructions Given to Patient (Per Discharging Provider) leonarda Kenny were admitted to [facility] due to generalized weakness and found to have an acute urinary tract infection (UTI). Recommendations for Follow-Up Please attend your PCP hospital discharge follow-up appointment as outlined below! Date & Time: 05/28/2024 @ 11:20AM Provider: Gilbert Calloway MD Location: [facility] @ [facility] Please take good care of yourself! It has been a pleasure taking care of you. If you have any questions regarding your recent hospitalization please contact [facility] and request [facility] @ [phone]. Total Time Total Time Spent Total Time Spent (In Minutes): 55
[2024-05-21 13:37] VITALS: BP 107/63
== END 2024-05-21 13:56 | disposition home or self-care (01) | DRG 689 ==
LOC: ED 17:58 → SUATTDRO 21:56 → EDINP 21:56 → 2N 05-19 02:00

== ENCOUNTER 2024-08-21 18:52 | Inpatient (IN) ==
[2024-08-21 19:58] LABS: Appearance Urine Clear (Clear); Bacteria Urine Automated None Seen (None Seen); Cast Urine Automated 0-2 /lpf (0-2); Epithelial Cell Urine Auto 0-2 /hpf (0-2); Glucose Urine UA Negative (Negative); Hematocrit (blood only) 35.8 % (37.0-47.0); Hemoglobin 11.8 g/dl (12.0-16.0); Immature Granulocytes # (auto) 0.02 K/uL (0.01-0.20); Immature Granulocytes % (auto) 0.3 %; Mean Corpuscular Hemoglobin 29.8 pg (25.0-34.0); Mean Corpuscular Volume 90.4 fL (80.0-100.0); Platelet Count 184 K/uL (130-400); RBC Urine Automated 0-2 /hpf (0-2); RDW Standard Deviation 48.9 fL (36.4-46.3); Red Blood Count 3.96 M/uL (4.20-5.40); WBC Urine Automated 0-5 /hpf (0-5); White Blood Count 5.78 K/ul (4.8-10.8)
[2024-08-21 20:19] LABS: Alanine Aminotransferase 18.0 U/L (7-52); Albumin Globulin Ratio 1.1 (0.9-2); Alkaline Phosphatase 67.0 U/L (34-104); Anion Gap 7.0 (3-11); Bilirubin,Total 0.8 mg/dl (0.2-1.0); Blood Urea Nitrogen 20.0 mg/dl (6-23); Calcium 10.1 mg/dl (8.6-10.3); Carbon Dioxide 24.0 mmol/L (21-32); Chloride 108.0 mmol/L (98-107); Creatinine Clr Calc Pharmacy 31.6 ml/min; Globulin 3.5 gm/dl (2.5-4.0); Glucose 107.0 mg/dl (70-99(Fasting)); Magnesium 1.8 mg/dl (1.7-2.4); Potassium 3.6 mmol/L (3.5-5.1); Sodium 139.0 mmol/L (136-145); Total Protein 7.2 gm/dl (6.0-8.3)
--- NOTE | 2024-08-21 20:39 | Emergency Department Note ---
Impression & Plan Acute on chronic heart failure with preserved ejection fraction (HFpEF), BROUSSARD (dyspnea on exertion) ED Provider Note NAME: DYLAN LEACH AGE: 85 SEX: F : 11/14/1938 ARRIVES VIA: Ambulance INFORMANT: Patient, ED PROVIDER(S): Anthony Taylor MD CHIEF COMPLAINT: Shortness of breath, BROUSSARD MEDICAL DECISION MAKING: Patient presents with the above. IV was established and blood work was obtained along with a chest x-ray. Patient's blood work normal white count mild anemia hemoglobin 11.8 with normal platelet count kidney function unremarkable BNP is elevated. Urinalysis without signs of obvious infection. Chest x-ray shows worsening cardiomegaly and pulmonary edema. Given this with the associated symptoms to be the patient would benefit from admission. Patient was ordered IV Lasix. I did speak to Dr. Johnson and the patient was admitted to the medicine service. Discussion w/ other healthcare providers: Dr. Johnson inpatient medicine service Prior /Outside records reviewed: none Differential diagnosis: Reactive airway disease, pneumonia, pneumothorax, COPD, CHF, ACS, pulmonary embolism, musculoskeletal, GERD as well as other pathologies were considered. Diagnostics, as interpreted by me: ECG: A-fib, rate 65, normal QRS duration, normal axis, Q waves anteriorly and in lead III. No ST elevations. Cardiac monitoring: An order was placed for continuous cardiac monitoring. The monitor shows a rate of 67 with irregular irregular rhythm. Patient was placed on pulse oximetry Medical decision rules: none Imaging studies: I informally interpreted the patient's chest x-ray shows cardiomegaly and likely pulmonary edema with formal report to follow. HPI: Patient presents due to concern for worsening shortness of breath. The patient states that this morning she seemed to have increased work of breathing patient states that she has had BROUSSARD but has not noticed any obvious orthopnea or PND. Patient denies any chest pains no cough or fever. The patient has noticed some mild increase in leg swelling. PAST MEDICAL HISTORY: See Below PAST SURGICAL HISTORY: See Below SOCIAL HISTORY: See Below HOME MEDICATIONS: See Below ALLERGIES: See Below VITALS: See Below PHYSICAL EXAMINATION: GENERAL: NAD, non-toxic. EYE EXAM: Normal conjunctiva. PERRL, no anisocoria and EOM's grossly intact w/o pain. OROPHARYNX: Moist mucus membranes, grossly normal dentition. NECK: Trachea midline, no stridor. LUNGS: Bibasilar crackles. Normal chest wall mechanics. HEART: NSR, no MRG. ABDOMEN: Abdomen soft, non-tender, no masses, no rebound or guarding. BACK: No CVA TTP. SKIN: No rashes and no bruising. UPPER EXTREMITIES: Upper extremities are grossly normal. LOWER EXTREMITIES: Grossly normal, 1+ symmetric lower extremity edema without calf pain or erythema. NEURO EXAM: Awake and alert, follows commands, no obvious facial asymmetry, normal speech, moves all 4 extremities. Past Med/Surg History Problem List (Updated 08/22/24 @ 20:47 by Anthony Taylor MD) BROUSSARD (dyspnea on exertion) (Acute) Acute on chronic heart failure with preserved ejection fraction (Acute) Atypical chest pain (Acute) Breathlessness (Acute) Chronic diastolic CHF (congestive heart failure) Generalized anxiety disorder Acute UTI (Acute) Hypertension (Acute) Shortness of breath (Acute) Hypertension, uncontrolled Hiatal hernia with GERD and esophagitis Chest pain (Acute) Iron deficiency anemia Mild cognitive impairment Delirium due to another medical condition, acute, hyperactive Problems related to lack of adequate sleep Intractable nausea Chronic atrial fibrillation Anemia, chronic disease Acute renal failure superimposed on stage 3 chronic kidney disease Asymptomatic bradycardia Hypertension (Acute) SOB (shortness of breath) (Acute) Ascending aorta dilation Acute alteration in mental status (Acute) Confusion Costochondritis Elevated troponin (Acute) Weakness (Acute) SOB (shortness of breath) (Acute) History of coronary artery disease (Acute) Precordial chest pain (Acute) CAD (coronary artery disease) Hypophosphatemia Hypomagnesemia Acute on chronic diastolic CHF (congestive heart failure) Pneumonia (Acute) Sepsis due to pneumonia Hyperparathyroidism Hypercalcemia Anticoagulant long-term use Precordial chest pain (Acute) (HFpEF) heart failure with preserved ejection fraction Paroxysmal A-fib Chronic heart failure with preserved ejection fraction (HFpEF) Labile hypertension Sinus pause Chest pain, atypical Hypertension (Acute) Hypothyroidism KIM (acute kidney injury) (Acute) Acute on chronic heart failure with preserved ejection fraction (HFpEF) Greater trochanteric bursitis of right hip Anxiety (Chronic) Chronic osteoarthritis (Chronic) GERD (gastroesophageal reflux disease) (Chronic) DJD of left shoulder Primary osteoarthritis, right shoulder Diarrhea (Acute) Urinary incontinence (Chronic) Syncope and collapse Arthritis of right shoulder region (Acute) Depression with anxiety (Acute) Insomnia (Acute) Ambulatory dysfunction (Acute) Arthritis Depression Medical History Mobitz type 1 second degree AV block (10/2023) Somatic dysfunction of sacroiliac joint History of blood transfusion 2012 2/2 GASTRIC ULCER History of gastric ulcer 2012 Spinal stenosis Gastric ulcer Atrial fibrillation with rapid ventricular response (11/2022) Fall Moderate mitral regurgitation Transient ischemic attack (TIA) ~2013>REASON FOR PLAVIX Osteoarthritis Chronic back pain Dyslipidemia Chronic kidney disease stage 3 Hypertension Surgical History 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 History of cardiac cath NO STENTS History of coronary artery bypass graft 1998 (1 VESSEL) S/P epidural steroid injection History of esophagogastroduodenoscopy (EGD) S/p reverse total shoulder arthroplasty RT/LEFT History of abdominoplasty PANNICULECTOMY History of colonoscopy History of arthroplasty of right hip History of arthroplasty of left hip History of hysterectomy with oophorectomy History of arthroplasty of left shoulder History of tonsillectomy and adenoidectomy H/O bilateral salpingo-oophorectomy with hyter Family History Father , age 74 Allergic reaction Mother , 80s CHF (congestive heart failure) Other No family history of adverse response to anesthesia Social History Smoking Status: Never smoker Second Hand Exposure: No; Do You Dip or Chew Tobacco: No; Tobacco Cessation Education Requested by Patient: No Hx Alcohol Use: No Hx Substance Use: No Preferred Language: Kazakh Communication Ability: Effective Visual Impairment: No Limitations Cardroom Manager Required: No Beliefs That Will Affect Care: None marital status: Single Current Living Situation: Alone Current Living Situation Comment: pt lives at the independent apartments at [facility] How many Children do You have: 0 Other Information That Helps Us Care for You: No Feels Safe at Home: Yes Safety Concerns: Feels Safe At This Time Assistive Devices: Walker Allergies Allergies Allergy/AdvReac Type Severity Reaction Status Date / Time nitroglycerin AdvReac Severe "PROJECTILE Verified 07/16/24 18:45 VOMITTING" ergotamine AdvReac Intermediate vomiting Verified 07/16/24 18:45 Home Meds Home Medications Medication Instructions Recorded Confirmed calcitriol 0.25 mcg capsule 0.25 mcg PO 3XWK 07/16/24 08/21/24 ferrous fumarate 324 mg (106 mg 324 mg PO QAM 07/16/24 08/21/24 iron) tablet pantoprazole 40 mg tablet,delayed 40 mg PO AMHS 07/16/24 08/21/24 release rosuvastatin 10 mg tablet 10 mg PO HS 07/16/24 08/21/24 trazodone 50 mg tablet 50 mg PO HS 07/16/24 08/21/24 hydroxyzine HCl 10 mg tablet 10 mg PO TID PRN Anxiety 07/25/24 08/21/24 acetaminophen 500 mg tablet 500 mg PO TID PRN Pain 08/21/24 08/21/24 buspirone 15 mg tablet 15 mg PO AMHS 08/21/24 08/21/24 clopidogrel 75 mg tablet 75 mg PO QAM 08/21/24 08/21/24 gabapentin 100 mg capsule 100 mg PO AMHS 08/21/24 08/21/24 loperamide 2 mg capsule 2 mg PO QID PRN Diarrhea 08/21/24 08/21/24 Previous Rx's Medication Instructions Recorded amlodipine 5 mg tablet (Norvasc) 5 mg PO QAM #30 tabs 05/21/24 apixaban 2.5 mg tablet (Eliquis) 2.5 mg PO BID #60 tabs 05/21/24 levothyroxine 75 mcg tablet 75 mcg PO DAILYBB #30 tabs 05/21/24 (Synthroid) melatonin 10 mg capsule 10 mg PO HS #30 caps 05/21/24 metoprolol succinate 25 mg 25 mg PO QAM #30 tabs 05/21/24 tablet,extended release 24 hr Results & Data (ED) Vital Signs Vital Signs - 24 hr 08/21/24 21:00 08/21/24 23:00 08/21/24 23:25 Pulse Rate 73 Pulse Rate [Apical] 84 78 Pulse Rhythm [Apical] Regular Regular Pulse Strength [Apical] Normal Normal Respiratory Rate 18 18 Respiratory Effort / Characteristics Non-Labored Spontaneous Non-Labored Spontaneous Respiratory Depth Normal Normal Respiratory Pattern Regular Regular Blood Pressure [Right Arm] 154/80 H 165/96 H Blood Pressure Mean [Right Arm] 104 119 Blood Pressure Position [Right Arm] Semi-fowlers Semi-fowlers Pulse Oximetry 97 96 Oxygen Delivery Method Room Air Room Air Home Medications Current Medication List: was personally reviewed by me Laboratory Data Attestation: I reviewed the patient's lab results. 08/22/24 05:31 08/22/24 05:31 Lab Results 08/21/24 Range/Units 19:04 WBC 5.78 (4.8-10.8) K/ul RBC 3.96 L (4.20-5.40) M/uL Hgb 11.8 L (12.0-16.0) g/dl Hct 35.8 L (37.0-47.0) % MCV 90.4 (80.0-100.0) fL MCH 29.8 (25.0-34.0) pg MCHC 33.0 (32.0-36.0) g/dL RDW Std Deviation 48.9 H (36.4-46.3) fL RDW Coeff of Howie 14.7 H (11.5-14.5) % Plt Count 184 (130-400) K/uL MPV 10.4 (9.4-12.4) fL Immature Gran % (Auto) 0.3 % Neut % (Auto) 52.1 % Lymph % (Auto) 32.9 % [place] % (Auto) 10.0 % Eos % (Auto) 3.8 % Baso % (Auto) 0.9 % Neut # (Auto) 3.01 (1.40-6.50) K/uL Lymph # (Auto) 1.90 (1.20-3.40) K/uL [place] # (Auto) 0.58 (0.11-0.59) K/uL Eos # (Auto) 0.22 (0.00-0.50) K/uL Baso # (Auto) 0.05 (0.00-0.20) K/uL Immature Gran # (Auto) 0.02 (0.01-0.20) K/uL Sodium 139 (136-145) mmol/L Potassium 3.6 (3.5-5.1) mmol/L Chloride 108 H (98-107) mmol/L Carbon Dioxide 24 (21-32) mmol/L Anion Gap 7 (3-11) BUN 20 (6-23) mg/dl Creatinine 1.13 (0.6-1.2) mg/dl Est Cr Clr Drug Dosing 31.6 ml/min eGFR 47.09 BUN/Creatinine Ratio 17.7 (10-20) Glucose 107 H (70-99(Fasting)) mg/dl Calcium 10.1 (8.6-10.3) mg/dl Magnesium 1.8 (1.7-2.4) mg/dl Total Bilirubin 0.8 (0.2-1.0) mg/dl AST 18 (13-39) U/L ALT 18 (7-52) U/L Alkaline Phosphatase 67 (34-104) U/L Troponin I High Sens 9.0 (0-14) pg/ml B-Natriuretic Peptide 415 H (0-100) pg/ml Total Protein 7.2 (6.0-8.3) gm/dl Albumin 3.7 (3.4-5.0) gm/dl Globulin 3.5 (2.5-4.0) gm/dl Albumin/Globulin Ratio 1.1 (0.9-2) Urine Color Yellow Urine Appearance Clear (Clear) Urine pH 8.0 H (4.5-7.5) Ur Specific [place] 1.016 (1.000-1.030) Urine Protein Negative (Negative) Urine Glucose (UA) Negative (Negative) Urine Ketones Negative (Negative) Urine Blood Negative (Negative) Urine Nitrite Negative (Negative) Urine Bilirubin Negative (Negative) Urine Urobilinogen Negative (Negative) Ur Leukocyte Esterase Trace H (Negative) Urine WBC (Auto) 0-5 (0-5) /hpf Urine RBC (Auto) 0-2 (0-2) /hpf U Hyaline Cast (Auto) 0-2 (0-2) /lpf U Epithel Cells (Auto) 0-2 (0-2) /hpf Urine Bacteria (Auto) None Seen (None Seen) Urine Comment Administered Medications Amlodipine Besylate (Amlodipine Besylate 5 Mg Tab) 5 mg PO QAM [facility] Stop: 09/21/24 08:59 Last Admin: 08/22/24 07:54 Dose: 5 mg Documented By: GPF Apixaban (Apixaban 2.5 Mg Tab) 2.5 mg PO BID [facility] Stop: 09/21/24 08:59 Last Admin: 08/22/24 19:41 Dose: 2.5 mg Documented By: Admin: 08/22/24 07:55 Dose: 2.5 mg Documented By: GPF Buspirone HCl (Buspirone 15 Mg Tab) 15 mg PO [facility] Stop: 09/21/24 08:59 Last Admin: 08/22/24 19:42 Dose: 15 mg Documented By: Admin: 08/22/24 07:55 Dose: 15 mg Documented By: GPF Calcitriol (Calcitriol 0.25 Mcg Capsule) 0.25 mcg PO [id number] [facility] Stop: 09/21/24 08:59 Last Admin: 08/22/24 07:54 Dose: 0.25 mcg Documented By: GPF Clopidogrel Bisulfate (Clopidogrel Bisulfate 75 Mg Tab) 75 mg PO [facility] Stop: 09/21/24 08:59 Last Admin: 08/22/24 07:54 Dose: 75 mg Documented By: GPF Empagliflozin (Empagliflozin 10 Mg Tab) 10 mg PO DAILY [facility] Stop: 09/21/24 12:29 Last Admin: 08/22/24 13:33 Dose: 10 mg Documented By: GPF Levothyroxine Sodium ([facility]othyroxine Sodium 75 Mcg Tablet) [facility] Stop: 09/21/24 06:29 Last Admin: 08/22/24 06:21 Dose: 75 mcg Documented By: MATTHEW Melatonin (Melatonin 3 Mg Tab) [address] [facility] Stop: 09/21/24 20:59 Last Admin: 08/22/24 19:41 Dose: 3 mg Documented By: LAITH Metoprolol Succinate (Metoprolol Succ 25mg Ext Rel Tab) 25 mg PO [facility] Stop: 09/21/24 08:59 Last Admin: 08/22/24 07:54 Dose: 25 mg Documented By: GPF Pantoprazole Sodium (Pantoprazole 40 Mg Tab) 40 mg PO [facility] Stop: 09/21/24 08:59 Last Admin: 08/22/24 19:42 Dose: 40 mg Documented By: Admin: 08/22/24 07:55 Dose: 40 mg Documented By: GPF Rosuvastatin Calcium (Rosuvastatin Calcium 10 Mg Tab) [address] [facility] Stop: 09/21/24 20:59 Last Admin: 08/22/24 19:42 Dose: 10 mg Documented By: LAITH Trazodone HCl (Trazodone Hcl 50 Mg Tab) 50 mg PO HS YAN Stop: 09/21/24 20:59 Last Admin: 08/22/24 20:02 Dose: 50 mg Documented By: LAITH Discontinued Medications Ferrous Sulfate (Ferrous Sulfate 325 Mg Tab) 325 mg PO QAM YAN Stop: 09/21/24 08:59 Last Admin: 08/22/24 07:54 Dose: 325 mg Documented By: GPF Furosemide (Furosemide 40 Mg/4 Ml Vial) 40 mg IV ONE ONE Stop: 08/21/24 21:07 Last Admin: 08/21/24 22:27 Dose: 40 mg Documented By: IDD Furosemide (Furosemide Inj 20 Mg/2 Ml Vial) 20 mg IV BID YAN Stop: 09/21/24 08:59 Last Admin: 08/22/24 10:20 Dose: 20 mg Documented By: GPF Gabapentin (Gabapentin 100 Mg Cap) 100 mg PO [facility] YAN Stop: 09/21/24 08:59 Last Admin: 08/22/24 07:55 Dose: 100 mg Documented By: GPF Hydroxyzine HCl (Hydroxyzine Hcl 10 Mg Tab) 10 mg PO TID PRN PRN Reason: Anxiety Stop: 09/21/24 01:34 Last Admin: 08/22/24 07:54 Dose: 10 mg Documented By: GPF Magnesium Sulfate/Dextrose (Magnesium Sulfate / D5w) 1 gm in 100 mls @ 50 mls/hr IV Q2H YAN Stop: 08/22/24 11:29 Last Infusion: 08/22/24 11:44 Dose: Infused Documented By: Admin: 08/22/24 09:44 Dose: 50 mls/hr Documented By: Infusion: 08/22/24 09:43 Dose: Infused Documented By: Admin: 08/22/24 07:53 Dose: 50 mls/hr Documented By: GPF Melatonin (Melatonin 3 Mg Tab) 6 mg PO NOW STA Stop: 08/22/24 03:08 Last Admin: 08/22/24 03:20 Dose: 6 mg Documented By: AAL Potassium Chloride (Potassium Chloride Crtab 20 Meq Tabcr) 40 meq PO NOW STA Stop: 08/22/24 07:27 Last Admin: 08/22/24 07:53 Dose: 40 meq Documented By: GPF Zolpidem Tartrate (Zolpidem Tartrate 5 Mg Tab) 5 mg PO NOW STA Stop: 08/22/24 04:17 Last Admin: 08/22/24 04:34 Dose: 5 mg Documented By: AAL Imaging Data Radiologist's Impression: Chest X-Ray 08/21/24 19:44 Exam(s): XR CXR 1 VIEW EXAM: XR Chest, 1 View CLINICAL HISTORY: Dyspnea. TECHNIQUE: Frontal view of the chest. COMPARISON: Portable chest single view 07/25/2024 FINDINGS: Lungs: Reticulonodular interstitial changes in the perihilar regions and bilateral lower lobes, new from the previous examination. Pleural space: Unremarkable. No pneumothorax. No large pleural effusion. Heart: Cardiomegaly, more prominent from the previous examination, but presumed accentuated by portable oblique technique. Surgical clips consistent with prior CABG. Mediastinum: No significant tracheal deviation, accounting for obliquity. Bones/joints: Intact sternal hardware. Bilateral shoulder arthroplasties. No acute fracture. IMPRESSION: Reticulonodular interstitial changes in the perihilar regions and bilateral lower lobes, new from the previous examination. Suspect a component of interstitial vascular congestion. Interstitial infection is considered less likely. No pleural effusion or pneumothorax. Electronically signed by: Feliberto Palomino MD 08/21/24 23:30 PM Discharge Plan Visit Data Chief Complaint: Shortness of Breath/Dyspnea ED Provider: Anthony Taylor Discharge Problem: Acute on chronic heart failure with preserved ejection fraction (HFpEF), BROUSSARD (dyspnea on exertion) Patient Disposition: Admitted As Inpatient Condition: Good Discharge Instructions Interventions: ED Discharge Assessment Last Done: 08/22/24 01:12
[2024-08-21] MEDS: FUROSEMIDE 40 MG/4 ML VIAL IV ONE (22:27)
--- NOTE | 2024-08-21 23:31 | XRay Report ---
Exam(s): XR CXR 1 VIEW EXAM: XR Chest, 1 View CLINICAL HISTORY: Dyspnea. TECHNIQUE: Frontal view of the chest. COMPARISON: Portable chest single view 07/25/2024 FINDINGS: Lungs: Reticulonodular interstitial changes in the perihilar regions and bilateral lower lobes, new from the previous examination. Pleural space: Unremarkable. No pneumothorax. No large pleural effusion. Heart: Cardiomegaly, more prominent from the previous examination, but presumed accentuated by portable oblique technique. Surgical clips consistent with prior CABG. Mediastinum: No significant tracheal deviation, accounting for obliquity. Bones/joints: Intact sternal hardware. Bilateral shoulder arthroplasties. No acute fracture. IMPRESSION: Reticulonodular interstitial changes in the perihilar regions and bilateral lower lobes, new from the previous examination. Suspect a component of interstitial vascular congestion. Interstitial infection is considered less likely. No pleural effusion or pneumothorax. Electronically signed by: Feliberto Palomino MD 08/21/24 23:30 PM
--- NOTE | 2024-08-21 23:51 | History & Physical Report ---
Date of Service August 21, 2024 Assessment & Plan (1) Acute on chronic heart failure with preserved ejection fraction: Plan: 85-year-old female with past medical history significant for hypothyroidism, hypercalcemia, hiatal hernia, thoracic aortic ectasia, CKD stage IIIb, heart failure with preserved ejection fraction, CAD, status post CABG, hypertension, chronic atrial fibrillation, mild aortic stenosis, history of CVA, GERD, history of multiple lacunar infarcts, osteoarthrosis, scoliosis of lumbar spine, shoulder arthritis, degenerative disc disease, meningioma, encephalomalacia, depression, insomnia, mixed incontinence of urge and stress, history of gastric ulcers, anxiety, cognitive deficits who lives alone was brought in because of shortness of breath. Patient states shortness of breath started today. Says she was short of breath even while resting. Denies any cough. Denies fevers. Denies chest pain. Denies headache. Denies dizziness. No runny nose or sore throat. Appetite is okay. No difficulty swallowing. No nausea. No abdominal pain. Normal bowel and bladder movements. Ambulated okay in the ER. With ambulation she got more short of breath. Patient says when she goes outside she uses walker. Patient recently admitted in July 2024 with shortness of breath and chest pain. Shortness of breath thought to be from recent parainfluenza infection. During her admission office of aging was involved as there was question of patient unsafe to live alone. As per the community health worker home visit today patient seems to be missing appointments. She did not know that she had appointment with PCP today. And patient told that she did not had any food in the house but when community health worker checked in refrigerator and freezer there was plenty of food. CHW when checked she seems to be discharged from [facility] in June. And when she walked to bathroom and came back she was very short of breath and CHW took vitals her blood pressure was elevated. Currently patient is able to tell her name. Knows her d ate of . Knows that she is in the hospital. Knows current month and year and knows tomorrow is . Hemodynamics are okay currently. Acute on chronic heart failure with preserved ejection fraction Came with shortness of breath. Chest x-ray pulmonary congestion. Has mild pedal edema. Received IV Lasix 40 mg in the ER Will continue with IV Lasix 20 mg twice daily Will follow procalcitonin levels Daily weights. I's and O's Close monitoring telemetry Echo in April 2024 showed EF of 60 to 65%. Mildly dilated ascending aorta 4.3 cm. Mild aortic regurgitation. Will consult cardiology in a.m. for further recommendations Cognitive deficits Possible underlying dementia Patient seems to be forgetful for community health worker Office of agency involved Seems missing appointments Currently alert and oriented x 3 May need placement versus more help at home Chronic A-fib Metoprolol dose was decreased to 25 mg recently because of bradycardia On Eliquis We will monitor Hypothyroidism On Synthyroid GERD On Protonix Hyperlipidemia On statin History of CAD status post CABG On Plavix, Eliquis, statin and beta-brendan History of CVA On Plavix and statin and Eliquis CKD stage IIIb Presented with creatinine 1.1 Will follow labs Hypertension On amlodipine and metoprolol Will monitor Depression Anxiety On buspirone and trazodone Insomnia On trazodone Generalized osteoarthritis On gabapentin and Tylenol as needed DVT prophylaxis On Eliquis Disposition Telemetry CODE STATUS full code as per my discussion with the patient. History of Present Illness Chief Complaint: Shortness of breath Primary Care Provider: Gilbert Calloway MD 85-year-old female with past medical history significant for hypothyroidism, hypercalcemia, hiatal hernia, thoracic aortic ectasia, CKD stage IIIb, heart failure with preserved ejection fraction, CAD, status post CABG, hypertension, chronic atrial fibrillation, mild aortic stenosis, history of CVA, GERD, history of multiple lacunar infarcts, osteoarthrosis, scoliosis of lumbar spine, shoulder arthritis, degenerative disc disease, meningioma, encephalomalacia, depression, insomnia, mixed incontinence of urge and stress, history of gastric ulcers, anxiety, cognitive deficits who lives alone was brought in because of shortness of breath. Patient states shortness of breath started today. Says she was short of breath even while resting. Denies any cough. Denies fevers. Denies chest pain. Denies headache. Denies dizziness. No runny nose or sore throat. Appetite is okay. No difficulty swallowing. No nausea. No abdominal pain. Normal bowel and bladder movements. Ambulated okay in the ER. With ambulation she got more short of breath. Patient says when she goes outside she uses walker. Patient recently admitted in July 2024 with shortness of breath and chest pain. Shortness of breath thought to be from recent parainfluenza infection. During her admission office of aging was involved as there was question of patient unsafe to live alone. As per the community health worker home visit today patient seems to be missing appointments. She did not know that she had appointment with PCP today. And patient told that she did not had any food in the house but when community health worker checked in refrigerator and freezer there was plenty of food. CHW when checked she seems to be discharged from [facility] in June. And when she walked to bathroom and came back she was very short of breath and CHW took vitals her blood pressure was elevated. Currently patient is able to tell her name. Knows her date of . Knows that she is in the hospital. Knows current month and year and knows tomorrow is . Hemodynamics are okay currently. Past medical history. As mentioned above Past surgical history. Liposuction. CABG. Colonoscopy. EGD. Repair of retinal tear. Lasering of secondary cataract. Reconstruction of left shoulder joint. Reconstruction of right shoulder joint. Bilateral cataracts. Total abdominal hysterectomy with removal of tubes. Left total hip replacement. Social history. . No smoking. Alcohol occasional. No drug use. Family history. Father had allergies. Father age of 74 from allergic reaction. Brother had CAD, dementia. Mother had CHF. Sister has CAD. Allergies Allergy/AdvReac Type Severity Reaction Status Date / Time nitroglycerin AdvReac Severe "PROJECTILE Verified 07/16/24 18:45 VOMITTING" ergotamine AdvReac Intermediate vomiting Verified 07/16/24 18:45 Home Medications Medication Instructions Recorded Confirmed Type amlodipine 5 mg tablet (Norvasc) 5 mg PO QAM #30 tabs 05/21/24 08/21/24 Rx apixaban 2.5 mg tablet (Eliquis) 2.5 mg PO BID #60 tabs 05/21/24 08/21/24 Rx levothyroxine 75 mcg tablet 75 mcg PO DAILYBB #30 tabs 05/21/24 08/21/24 Rx (Synthroid) melatonin 10 mg capsule 10 mg PO HS #30 caps 05/21/24 08/21/24 Rx metoprolol succinate 25 mg 25 mg PO QAM #30 tabs 05/21/24 08/21/24 Rx tablet,extended release 24 hr calcitriol 0.25 mcg capsule 0.25 mcg PO 3XWK 07/16/24 08/21/24 History ferrous fumarate 324 mg (106 mg 324 mg PO QAM 07/16/24 08/21/24 History iron) tablet pantoprazole 40 mg tablet,delayed 40 mg PO AMHS 07/16/24 08/21/24 History release rosuvastatin 10 mg tablet 10 mg PO HS 07/16/24 08/21/24 History trazodone 50 mg tablet 50 mg PO HS 07/16/24 08/21/24 History hydroxyzine HCl 10 mg tablet 10 mg PO TID PRN Anxiety 07/25/24 08/21/24 History acetaminophen 500 mg tablet 500 mg PO TID PRN Pain 08/21/24 08/21/24 History buspirone 15 mg tablet 15 mg PO AMHS 08/21/24 08/21/24 History clopidogrel 75 mg tablet 75 mg PO QAM 08/21/24 08/21/24 History gabapentin 100 mg capsule 100 mg PO AMHS 08/21/24 08/21/24 History loperamide 2 mg capsule 2 mg PO QID PRN Diarrhea 08/21/24 08/21/24 History Past Med/Surg History Problem List (Updated 08/22/24 @ 00:04 by Butch Johnson MD) Acute on chronic heart failure with preserved ejection fraction Atypical chest pain (Acute) Breathlessness (Acute) Chronic diastolic CHF (congestive heart failure) Generalized anxiety disorder Acute UTI (Acute) Hypertension (Acute) Shortness of breath (Acute) Hypertension, uncontrolled Hiatal hernia with GERD and esophagitis Chest pain (Acute) Iron deficiency anemia Mild cognitive impairment Delirium due to another medical condition, acute, hyperactive Problems related to lack of adequate sleep Intractable nausea Chronic atrial fibrillation Anemia, chronic disease Acute renal failure superimposed on stage 3 chronic kidney disease Asymptomatic bradycardia Hypertension (Acute) SOB (shortness of breath) (Acute) Ascending aorta dilation Acute alteration in mental status (Acute) Confusion Costochondritis Elevated troponin (Acute) Weakness (Acute) SOB (shortness of breath) (Acute) History of coronary artery disease (Acute) Precordial chest pain (Acute) CAD (coronary artery disease) Hypophosphatemia Hypomagnesemia Acute on chronic diastolic CHF (congestive heart failure) Pneumonia (Acute) Sepsis due to pneumonia Hyperparathyroidism Hypercalcemia Anticoagulant long-term use Precordial chest pain (Acute) (HFpEF) heart failure with preserved ejection fraction Paroxysmal A-fib Chronic heart failure with preserved ejection fraction (HFpEF) Labile hypertension Sinus pause Chest pain, atypical Hypertension (Acute) Hypothyroidism KIM (acute kidney injury) (Acute) Acute on chronic heart failure with preserved ejection fraction (HFpEF) Greater trochanteric bursitis of right hip Anxiety (Chronic) Chronic osteoarthritis (Chronic) GERD (gastroesophageal reflux disease) (Chronic) DJD of left shoulder Primary osteoarthritis, right shoulder Diarrhea (Acute) Urinary incontinence (Chronic) Syncope and collapse Arthritis of right shoulder region (Acute) Depression with anxiety (Acute) Insomnia (Acute) Ambulatory dysfunction (Acute) Arthritis Depression Medical History Mobitz type 1 second degree AV block (10/2023) Somatic dysfunction of sacroiliac joint History of blood transfusion 03/23 GASTRIC ULCER History of gastric ulcer 2012 Spinal stenosis Gastric ulcer Atrial fibrillation with rapid ventricular response (11/2022) Fall Moderate mitral regurgitation Transient ischemic attack (TIA) ~2012>REASON FOR PLAVIX Osteoarthritis Chronic back pain Dyslipidemia Chronic kidney disease stage 3 Hypertension Surgical History 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 History of cardiac cath NO STENTS History of coronary artery bypass graft 1998 (1 VESSEL) S/P epidural steroid injection History of esophagogastroduodenoscopy (EGD) S/p reverse total shoulder arthroplasty RT/LEFT History of abdominoplasty PANNICULECTOMY History of colonoscopy History of arthroplasty of right hip History of arthroplasty of left hip History of hysterectomy with oophorectomy History of arthroplasty of left shoulder History of tonsillectomy and adenoidectomy H/O bilateral salpingo-oophorectomy with hyter Family History Father , age 74 Allergic reaction Mother , 80s CHF (congestive heart failure) Other No family history of adverse response to anesthesia Social History Smoking Status: Never smoker Second Hand Exposure: No; Do You Dip or Chew Tobacco: No; Tobacco Cessation Education Requested by Patient: No Hx Alcohol Use: No Hx Substance Use: No Preferred Language: Amharic Communication Ability: Effective Visual Impairment: No Limitations Senior Research Associate Required: No Beliefs That Will Affect Care: None marital status: Single Current Living Situation: Alone Current Living Situation Comment[facility] How many Children do You have: 0 Other Information That Helps Us Care for You: No Feels Safe at Home: Yes Safety Concerns: Feels Safe At This Time Assistive Devices: Glasses Review of Systems Review of Systems: All systems reviewed & are unremarkable except as noted in HPI & below Physical Exam Physical Exam: General- Not in distress Head- atraumatic Eyes- PERRL. ENT- oropharynx clear Neck- supple, no JVD. Lungs- clear to auscultation mild bibasilar crackles, no wheezing Heart- regular rhythm; no murmur, no gallop. Abdomen- normal bowel sounds, soft, nontender, no distension Extremities- mild pretibial edema, no erythema seen Neuro- alert, oriented x 3; PERRL, no facial palsy; no dysarthria; moves extremities Results & Data Results & Data Vital Signs (Past 12 Hours) Vital Signs Temp Pulse Pulse Resp BP BP Pulse Ox 08/21/24 23:25 73 08/21/24 21:00 84 18 154/80 H 97 08/21/24 19:44 64 18 97 08/21/24 19:05 63 08/21/24 19:01 97 08/21/24 19:01 36.9 C 76 18 157/85 H 96 O2 Del Method 08/21/24 23:25 08/21/24 21:00 Room Air 08/21/24 19:44 Room Air 08/21/24 19:05 08/21/24 19:01 Room Air 08/21/24 19:01 Room Air Diagnostic Findings Laboratory Results WBC 5.78 K/ul (4.8-10.8) 08/21/24 19:04 RBC 3.96 M/uL (4.20-5.40) L 08/21/24 19:04 Hgb 11.8 g/dl (12.0-16.0) L 08/21/24 19:04 Hct 35.8 % (37.0-47.0) L 08/21/24 19:04 MCV 90.4 fL (80.0-100.0) 08/21/24 19:04 MCH 29.8 pg (25.0-34.0) 08/21/24 19:04 MCHC 33.0 g/dL (32.0-36.0) 08/21/24 19:04 RDW Std Deviation 48.9 fL (36.4-46.3) H 08/21/24 19:04 RDW Coeff of Howie 14.7 % (11.5-14.5) H 08/21/24 19:04 Plt Count 184 K/uL (130-400) 08/21/24 19:04 MPV 10.4 fL (9.4-12.4) 08/21/24 19:04 Immature Gran % (Auto) 0.3 % 08/21/24 19:04 Neut % (Auto) 52.1 % 08/21/24 19:04 Lymph % (Auto) 32.9 % 08/21/24 19:04 [place] % (Auto) 10.0 % 08/21/24 19:04 Eos % (Auto) 3.8 % 08/21/24 19:04 Baso % (Auto) 0.9 % 08/21/24 19:04 Neut # (Auto) 3.01 K/uL (1.40-6.50) 08/21/24 19:04 Lymph # (Auto) 1.90 K/uL (1.20-3.40) 08/21/24 19:04 [place] # (Auto) 0.58 K/uL (0.11-0.59) 08/21/24 19:04 Eos # (Auto) 0.22 K/uL (0.00-0.50) 08/21/24 19:04 Baso # (Auto) 0.05 K/uL (0.00-0.20) 08/21/24 19:04 Immature Gran # (Auto) 0.02 K/uL (0.01-0.20) 08/21/24 19:04 Sodium 139 mmol/L (136-145) 08/21/24 19:04 Potassium 3.6 mmol/L (3.5-5.1) 08/21/24 19:04 Chloride 108 mmol/L (98-107) H 08/21/24 19:04 Carbon Dioxide 24 mmol/L (21-32) 08/21/24 19:04 Anion Gap 7 (3-11) 08/21/24 19:04 BUN 20 mg/dl (6-23) 08/21/24 19:04 Creatinine 1.13 mg/dl (0.6-1.2) 08/21/24 19:04 Est Cr Clr Drug Dosing 31.6 ml/min 08/21/24 19:04 eGFR 47.09 08/21/24 19:04 BUN/Creatinine Ratio 17.7 (10-20) 08/21/24 19:04 Glucose 107 mg/dl (70-99(Fasting)) H 08/21/24 19:04 Calcium 10.1 mg/dl (8.6-10.3) 08/21/24 19:04 Magnesium 1.8 mg/dl (1.7-2.4) 08/21/24 19:04 Total Bilirubin 0.8 mg/dl (0.2-1.0) 08/21/24 19:04 AST 18 U/L (13-39) 08/21/24 19:04 ALT 18 U/L (7-52) 08/21/24 19:04 Alkaline Phosphatase 67 U/L (34-104) 08/21/24 19:04 Troponin I High Sens 9.0 pg/ml (0-14) 08/21/24 19:04 B-Natriuretic Peptide 415 pg/ml (0-100) H 08/21/24 19:04 Total Protein 7.2 gm/dl (6.0-8.3) 08/21/24 19:04 Albumin 3.7 gm/dl (3.4-5.0) 08/21/24 19:04 Globulin 3.5 gm/dl (2.5-4.0) 08/21/24 19:04 Albumin/Globulin Ratio 1.1 (0.9-2) 08/21/24 19:04 Urine Color Yellow 08/21/24 19:04 Urine Appearance Clear (Clear) 08/21/24 19:04 Urine pH 8.0 (4.5-7.5) H 08/21/24 19:04 Ur Specific [place] 1.016 (1.000-1.030) 08/21/24 19:04 Urine Protein Negative (Negative) 08/21/24 19:04 Urine Glucose (UA) Negative (Negative) 08/21/24 19:04 Urine Ketones Negative (Negative) 08/21/24 19:04 Urine Blood Negative (Negative) 08/21/24 19:04 Urine Nitrite Negative (Negative) 08/21/24 19:04 Urine Bilirubin Negative (Negative) 08/21/24 19:04 Urine Urobilinogen Negative (Negative) 08/21/24 19:04 Ur Leukocyte Esterase Trace (Negative) H 08/21/24 19:04 Urine WBC (Auto) 0-5 /hpf (0-5) 08/21/24 19:04 Urine RBC (Auto) 0-2 /hpf (0-2) 08/21/24 19:04 U Hyaline Cast (Auto) 0-2 /lpf (0-2) 08/21/24 19:04 U Epithel Cells (Auto) 0-2 /hpf (0-2) 08/21/24 19:04 Urine Bacteria (Auto) None Seen (None Seen) 08/21/24 19:04 Urine Comment 08/21/24 19:04 Impressions Chest X-Ray 08/21/24 19:44 Exam(s): XR CXR 1 VIEW EXAM: XR Chest, 1 View CLINICAL HISTORY: Dyspnea. TECHNIQUE: Frontal view of the chest. COMPARISON: Portable chest single view 07/25/2024 FINDINGS: Lungs: Reticulonodular interstitial changes in the perihilar regions and bilateral lower lobes, new from the previous examination. Pleural space: Unremarkable. No pneumothorax. No large pleural effusion. Heart: Cardiomegaly, more prominent from the previous examination, but presumed accentuated by portable oblique technique. Surgical clips consistent with prior CABG. Mediastinum: No significant tracheal deviation, accounting for obliquity. Bones/joints: Intact sternal hardware. Bilateral shoulder arthroplasties. No acute fracture. IMPRESSION: Reticulonodular interstitial changes in the perihilar regions and bilateral lower lobes, new from the previous examination. Suspect a component of interstitial vascular congestion. Interstitial infection is considered less likely. No pleural effusion or pneumothorax. Electronically signed by: Feliberto Palomino MD 08/21/24 23:30 PM Code Status & VTE Plan VTE Prophylaxis Plan VTE Prophylaxis will be ordered: Yes
[2024-08-22] MEDS ORDERED: POLYETHYLENE (MIRALAX) 17 GM PACK PO PRN (01:35)
[2024-08-22] MEDS: MELATONIN 3 MG TAB PO STA (03:20)
[2024-08-22] MEDS: ZOLPIDEM TARTRATE 5 MG TAB PO STA ×2 (04:34→23:27)
[2024-08-22 05:44] LABS: Hematocrit (blood only) 36.4 % (37.0-47.0); Hemoglobin 11.9 g/dl (12.0-16.0); Immature Granulocytes # (auto) 0.01 K/uL (0.01-0.20); Immature Granulocytes % (auto) 0.2 %; Mean Corpuscular Hemoglobin 29.7 pg (25.0-34.0); Mean Corpuscular Volume 90.8 fL (80.0-100.0); Platelet Count 166 K/uL (130-400); RDW Standard Deviation 49.1 fL (36.4-46.3); Red Blood Count 4.01 M/uL (4.20-5.40); White Blood Count 6.25 K/ul (4.8-10.8)
[2024-08-22 06:01] LABS: Anion Gap 7.0 (3-11); Blood Urea Nitrogen 19.0 mg/dl (6-23); Calcium 10.0 mg/dl (8.6-10.3); Carbon Dioxide 28.0 mmol/L (21-32); Chloride 104.0 mmol/L (98-107); Creatinine Clr Calc Pharmacy 30.0 ml/min; Glucose 93.0 mg/dl (70-99(Fasting)); Magnesium 1.7 mg/dl (1.7-2.4); Potassium 3.5 mmol/L (3.5-5.1); Sodium 139.0 mmol/L (136-145)
[2024-08-22] MEDS: LEVOTHYROXINE SODIUM 75 MCG TABLET PO SCH (06:21)
[2024-08-22] MEDS: POTASSIUM CHLORIDE CRTAB 20 MEQ TABCR PO STA (07:53)
[2024-08-22] MEDS: MAGNESIUM SULFATE / D5W 1 GM/100 ML BAG IV SCH (07:53)
[2024-08-22] MEDS: METOPROLOL SUCC 25MG EXT REL TAB PO SCH (07:54)
[2024-08-22] MEDS: CLOPIDOGREL BISULFATE 75 MG TAB PO SCH (07:54)
[2024-08-22] MEDS: CALCITRIOL 0.25 MCG CAPSULE PO SCH (07:54)
[2024-08-22] MEDS: FERROUS SULFATE 325 MG TAB PO SCH (07:54)
[2024-08-22] MEDS: busPIRone 15 MG TAB PO SCH (07:55)
[2024-08-22] MEDS: APIXABAN 2.5 MG TAB PO SCH (07:55)
[2024-08-22] MEDS: GABAPENTIN 100 MG CAP PO SCH (07:55)
[2024-08-22] MEDS: FUROSEMIDE INJ 20 MG/2 ML VIAL IV SCH (10:20)
--- NOTE | 2024-08-22 11:20 | Hospitalist Progress Note ---
Date of Service August 22, 2024 Assessment & Plan (1) Acute on chronic heart failure with preserved ejection fraction: Plan: 85-year-old female with past medical history significant for hypothyroidism, hypercalcemia, hiatal hernia, thoracic aortic ectasia, CKD stage IIIb, heart failure with preserved ejection fraction, CAD, status post CABG, hypertension, chronic atrial fibrillation, mild aortic stenosis, history of CVA, GERD, history of multiple lacunar infarcts, osteoarthrosis, scoliosis of lumbar spine, shoulder arthritis, degenerative disc disease, meningioma, encephalomalacia, depression, insomnia, mixed incontinence of urge and stress, history of gastric ulcers, anxiety, cognitive deficits who lives alone was brought in because of shortness of breath. Patient states shortness of breath started today. Says she was short of breath even while resting. Denies any cough. Denies fevers. Denies chest pain. Denies headache. Denies dizziness. No runny nose or sore throat. Appetite is okay. No difficulty swallowing. No nausea. No abdominal pain. Normal bowel and bladder movements. Ambulated okay in the ER. With ambulation she got more short of breath. Patient says when she goes outside she uses walker. Patient recently admitted in July 2024 with shortness of breath and chest pain. Shortness of breath thought to be from recent parainfluenza infection. During her admission office of aging was involved as there was question of patient unsafe to live alone. As per the community health worker home visit today patient seems to be missing appointments. She did not know that she had appointment with PCP today. And patient told that she did not had any food in the house but when community health worker checked in refrigerator and freezer there was plenty of food. CHW when checked she seems to be discharged from [facility] in June. And when she walked to bathroom and came back she was very short of breath and CHW took vitals her blood pressure was elevated. Currently patient is able to tell her name. Knows her d ate of . Knows that she is in the hospital. #Decompensated Acute on chronic heart failure with preserved ejection fraction -Came with shortness of breath. Chest x-ray pulmonary congestion. Has mild pedal edema. -still SOB today, good urine output with 20 IV lasix Plan: -continue 20 IV bid lasix -Daily weights. I's and O's -f/u echo results #Dementia -patient has clear cognitive deficits on exam, not remembering what brought her to hospital -has case open with office of aging -patient misses doctors appointments, has history of being very poor historian, concerns about ability to live alone Plan: -perform MOCA today -discussed with case management, will discuss with Office of Aging regarding next steps, clinical concern about ability of patient to take care of slef Chronic A-fib -Metoprolol dose was decreased to 25 mg recently because of bradycardia -On Eliquis Hypothyroidism -On Synthyroid GERD -On Protonix Hyperlipidemia -On statin History of CAD status post CABG -On Plavix, Eliquis, statin and beta-brendan History of CVA -On Plavix and statin and Eliquis CKD stage IIIb -Presented with creatinine 1.1 Hypertension -On amlodipine and metoprolol Depression Anxiety -On buspirone and trazodone Insomnia -On trazodone Generalized osteoarthritis -On gabapentin and Tylenol as needed I spent a total of 50 minutes in direct patient care, including [id number] time with the patient and/or family, reviewing medical records, ordering and reviewing diagnostic tests, and coordinating care with other healthcare providers. This time includes: history taking, physical examination, medical decision making, counseling, ECG interpretation, imaging interpretation, lab interpretation, orders, and education, excluding time spent in the performance of separately billed services. Admission and Anticipated Discharge Date Admission Date: August 21, 2024 Subjective Patient seen and examined at bedside. Patient feels SOB at this time, otherwise ok. Confused, alert and orriented to person, place, but confused about time and current condition. Does not remember why she came to the hospital. Review of Systems Review of Systems: CONSTITUTIONAL: Patient denies fevers, chills, sweats and weight changes. EYES: Patient denies any visual symptoms. EARS, NOSE, AND THROAT: No difficulties with hearing. No symptoms of rhinitis or sore throat. CARDIOVASCULAR: Patient denies chest pains, palpitations, orthopnea and paroxysmal nocturnal dyspnea. RESPIRATORY: SOB GI: No nausea, vomiting, diarrhea, constipation, abdominal pain, hematochezia or melena. : No urinary hesitancy or dribbling. No nocturia or urinary frequency. No abnormal urethral discharge. MUSCULOSKELETAL: No myalgias or arthralgias. NEUROLOGIC: No chronic headaches, no seizures. Patient denies numbness, tingling or weakness. PSYCHIATRIC: Patient denies problems with mood disturbance. No problems with anxiety. ENDOCRINE: No excessive urination or excessive thirst. DERMATOLOGIC: Patient denies any rashes or skin changes. Physical Exam Physical Exam: Gen: A&O 2 NAD HEENT: NCAT, EOMI, not icteric. External ears normal. No rhinorrhea. Moist mucous membranes. Neck: Supple, full range of motion, no observable masses, No meningeal sign. Lungs: trace rhonchi in bilateral lower lobes worse on right CV: RRR, no edema. Abdomen: Soft, nondistended, No rebound tenderness. MSK: No joint swelling, no redness. Skin: No rashes, petechiae, lesions. Normal color per patient. Neuro: Normal Gait, Grossly intact. Results & Data Results & Data Vital Signs (Past 12 Hours) Vital Signs Temp Pulse Pulse Resp BP BP Pulse Ox 08/22/24 08:30 68 08/22/24 08:30 08/22/24 08:30 08/22/24 07:44 37.0 C 87 17 158/88 H 96 08/22/24 02:04 08/22/24 01:35 36.5 C 78 18 174/90 H 97 08/22/24 01:12 68 18 175/85 H 99 08/21/24 23:25 73 O2 Del Method O2 Del Method 08/22/24 08:30 08/22/24 08:30 Room Air 08/22/24 08:30 Room Air 08/22/24 07:44 Room Air 08/22/24 02:04 Room Air 08/22/24 01:35 Room Air 08/22/24 01:12 Room Air 08/21/24 23:25 Laboratory Results -personally reviewed, creatinine is 1.2 and at baseline, BNP elevated at 415 Medications Administered Amlodipine Besylate (Amlodipine Besylate 5 Mg Tab) 5 mg PO QAM YAN Stop: 09/21/24 08:59 Last Admin: 08/22/24 07:54 Dose: 5 mg Documented By: GPF Apixaban (Apixaban 2.5 Mg Tab) 2.5 mg PO BID YAN Stop: 09/21/24 08:59 Last Admin: 08/22/24 07:55 Dose: 2.5 mg Documented By: GPF Buspirone HCl (Buspirone 15 Mg Tab) 15 mg PO AMHS [facility] Stop: 09/21/24 08:59 Last Admin: 08/22/24 07:55 Dose: 15 mg Documented By: GPF Calcitriol (Calcitriol 0.25 Mcg Capsule) 0.25 mcg PO [id number] [facility] Stop: 09/21/24 08:59 Last Admin: 08/22/24 07:54 Dose: 0.25 mcg Documented By: GPF Clopidogrel Bisulfate (Clopidogrel Bisulfate 75 Mg Tab) [facility] [place] Stop: 09/21/24 08:59 Last Admin: 08/22/24 07:54 Dose: 75 mg Documented By: GPF Furosemide (Furosemide Inj 20 Mg/2 Ml Vial) 20 mg IV BID [facility] Stop: 09/21/24 08:59 Last Admin: 08/22/24 10:20 Dose: 20 mg Documented By: GPF Magnesium Sulfate/Dextrose (Magnesium Sulfate / D5w) 1 gm in 100 mls @ 50 mls/hr IV Q2H [facility] Stop: 08/22/24 11:29 Last Admin: 08/22/24 09:44 Dose: 50 mls/hr Documented By: Infusion: 08/22/24 09:43 Dose: Infused Documented By: Admin: 08/22/24 07:53 Dose: 50 mls/hr Documented By: GPF Levothyroxine Sodium (Levothyroxine Sodium 75 Mcg Tablet) 75 mcg PO DAILYBB [facility] Stop: 09/21/24 06:29 Last Admin: 08/22/24 06:21 Dose: 75 mcg Documented By: AAL Metoprolol Succinate (Metoprolol Succ 25mg Ext Rel Tab) 25 [facility] [place] Stop: 09/21/24 08:59 Last Admin: 08/22/24 07:54 Dose: 25 mg Documented By: GPF Pantoprazole Sodium (Pantoprazole 40 Mg Tab) 40 mg PO [facility] Stop: 09/21/24 08:59 Last Admin: 08/22/24 07:55 Dose: 40 mg Documented By: GPF
--- NOTE | 2024-08-22 12:28 | Cardiology Consultation ---
Date of Consultation August 22, 2024 Assessment & Plan (1) Acute on chronic heart failure with preserved ejection fraction: Plan 85-year-old female with past medical history significant for hypothyroidism, hypercalcemia, hiatal hernia, thoracic aortic ectasia, CKD stage IIIb, admitted for acute exacerbation of HFpEF. Of note, the patient tells me that she has not previously been admitted for IV diuresis and is not currently on an oral loop diuretic at home. Denies chest pain. No N/V/COLBERT; afebrile. No PND or orthopnea. She no longer has lower extremity edema s/p 40mg IV lasix yesterday and 20mg IV BID today. She has chronic afib. 1. Acute Exacerbation of HFpEF -appears relatively euvolemic now -stop IV lasix -change to 40mg PO qday starting tomorrow (orders placed) -add Jardiance 10mg qday (orders placed) -plan for DC home today or tomorrow I provided 45 min of care in regards to management of acute exacerbation of HFpEF. Jamin Hernandez MD History of Present Illness Reason for Consultation: Acute exacerbation of HFpEF Attending Physician: Jerry Solis MD History of Present Illness 85-year-old female with past medical history significant for hypothyroidism, hypercalcemia, hiatal hernia, thoracic aortic ectasia, CKD stage IIIb, admitted for acute exacerbation of HFpEF. Of note, the patient tells me that she has not previously been admitted for IV diuresis and is not currently on an oral loop diuretic at home. Denies chest pain. No N/V/COLBERT; afebrile. No PND or orthopnea. She no longer has lower extremity edema s/p 40mg IV lasix yesterday and 20mg IV BID today. She has chronic afib. Allergies Allergy/AdvReac Type Severity Reaction Status Date / Time nitroglycerin AdvReac Severe "PROJECTILE Verified 07/16/24 18:45 VOMITTING" ergotamine AdvReac Intermediate vomiting Verified 07/16/24 18:45 Home Medications Medication Instructions Recorded Confirmed Type amlodipine 5 mg tablet (Norvasc) 5 mg PO QAM #30 tabs 05/21/24 08/21/24 Rx apixaban 2.5 mg tablet (Eliquis) 2.5 mg PO BID #60 tabs 05/21/24 08/21/24 Rx levothyroxine 75 mcg tablet 75 mcg PO DAILYBB #30 tabs 05/21/24 08/21/24 Rx (Synthroid) melatonin 10 mg capsule 10 mg PO HS #30 caps 05/21/24 08/21/24 Rx metoprolol succinate 25 mg 25 mg PO QAM #30 tabs 05/21/24 08/21/24 Rx tablet,extended release 24 hr calcitriol 0.25 mcg capsule 0.25 mcg PO 3XWK 07/16/24 08/21/24 History ferrous fumarate 324 mg (106 mg 324 mg PO QAM 07/16/24 08/21/24 History iron) tablet pantoprazole 40 mg tablet,delayed 40 mg PO AMHS 07/16/24 08/21/24 History release rosuvastatin 10 mg tablet 10 mg PO HS 07/16/24 08/21/24 History trazodone 50 mg tablet 50 mg PO HS 07/16/24 08/21/24 History hydroxyzine HCl 10 mg tablet 10 mg PO TID PRN Anxiety 07/25/24 08/21/24 History acetaminophen 500 mg tablet 500 mg PO TID PRN Pain 08/21/24 08/21/24 History buspirone 15 mg tablet 15 mg PO AMHS 08/21/24 08/21/24 History clopidogrel 75 mg tablet 75 mg PO QAM 08/21/24 08/21/24 History gabapentin 100 mg capsule 100 mg PO AMHS 08/21/24 08/21/24 History loperamide 2 mg capsule 2 mg PO QID PRN Diarrhea 08/21/24 08/21/24 History Patient History Medical History Mobitz type 1 second degree AV block (10/2023) Somatic dysfunction of sacroiliac joint History of blood transfusion 2012 2/2 GASTRIC ULCER History of gastric ulcer 2013 Spinal stenosis Gastric ulcer Atrial fibrillation with rapid ventricular response (11/2022) Fall Moderate mitral regurgitation Transient ischemic attack (TIA) ~2012>REASON FOR PLAVIX Osteoarthritis Chronic back pain Dyslipidemia Chronic kidney disease stage 3 Hypertension Surgical History 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 History of cardiac cath NO STENTS History of coronary artery bypass graft 1998 (1 VESSEL) S/P epidural steroid injection History of esophagogastroduodenoscopy (EGD) S/p reverse total shoulder arthroplasty RT/LEFT History of abdominoplasty PANNICULECTOMY History of colonoscopy History of arthroplasty of right hip History of arthroplasty of left hip History of hysterectomy with oophorectomy History of arthroplasty of left shoulder History of tonsillectomy and adenoidectomy H/O bilateral salpingo-oophorectomy with hyter Family History Father , age 74 Allergic reaction Mother , 80s CHF (congestive heart failure) Other No family history of adverse response to anesthesia Social History Smoking Status: Never smoker Second Hand Exposure: No; Do You Dip or Chew Tobacco: No; Tobacco Cessation Education Requested by Patient: No Hx Alcohol Use: No Hx Substance Use: No Preferred Language: German Communication Ability: Effective Visual Impairment: No Limitations Induction Heating Equipment Setter Required: No Beliefs That Will Affect Care: None marital status: Single Current Living Situation: Alone Current Living Situation Comment[facility] How many Children do You have: 0 Other Information That Helps Us Care for You: No Feels Safe at Home: Yes Safety Concerns: Feels Safe At This Time Assistive Devices: Glasses Review of Systems Review of Systems: A full 10 point review of systems is otherwise negative unless noted above. Physical Exam Physical Exam: GEN: AAOx3; NAD HEENT: No JVD CV: Irregular rhythm (afib); normal rate; no M/R/G PULM: CTA b/l; no w/r/r ABD: soft; NTND EXT: no lower extremity edema Results & Data Vital Signs (Past 12 Hours) Vital Signs Temp Pulse Pulse Resp BP BP Pulse Ox 08/22/24 11:51 36.7 C 73 20 154/75 H 97 08/22/24 08:30 68 08/22/24 08:30 08/22/24 08:30 08/22/24 07:44 37.0 C 87 17 158/88 H 96 08/22/24 02:04 08/22/24 01:35 36.5 C 78 18 174/90 H 97 08/22/24 01:12 68 18 175/85 H 99 O2 Del Method O2 Del Method 08/22/24 11:51 Room Air 08/22/24 08:30 08/22/24 08:30 Room Air 08/22/24 08:30 Room Air 08/22/24 07:44 Room Air 08/22/24 02:04 Room Air 08/22/24 01:35 Room Air 08/22/24 01:12 Room Air Results BMP Results: Sodium 139 mmol/L (136-145) 08/22/24 Potassium 3.5 mmol/L (3.5-5.1) 08/22/24 Chloride 104 mmol/L (98-107) 08/22/24 Carbon Dioxide 28 mmol/L (21-32) 08/22/24 Anion Gap 7 (3-11) 08/22/24 BUN 19 mg/dl (6-23) 08/22/24 Creatinine 1.20 mg/dl (0.6-1.2) 08/22/24 Glucose 93 mg/dl (70-99(Fasting)) 08/22/24 Results Cardiology Web EHR Widget: Cardiology Consultation 08/22/24 12:21 Cardiology Progress Note 03/22/24 15:10 Cardiology Visit 11/30/22 08:48 Electrocardiogram 07/25/24 11:07 Echocardiogram 04/26/24 15:24 Transthoracic Echocardiogram 03/16/24 15:28 Troponin I < 0.03 ng/ml (0-0.04) 05/07/21 15:04 Troponin I High Sens 10.2 pg/ml (0-14) 08/22/24 05:31 Total Creatine Kinase 118 U/L (26-192) 03/18/24 13:06 CK-MB (CK-2) 2.2 ng/ml (0.5-3.6) 03/11/18 15:00 D-Dimer 730 ug/L FEU (0-500) H* 12/01/21 08:07 B-Natriuretic Peptide 415 pg/ml (0-100) H 08/21/24 19:04 APTT 20 Seconds (21-31) L 07/25/24 11:23 PT 11.5 Seconds (9.0-12.0) 07/25/24 11:23 INR 1.1 (0.9-1.1) 07/25/24 11:23 Sodium 139 mmol/L (136-145) 08/22/24 05:31 Potassium 3.5 mmol/L (3.5-5.1) 08/22/24 05:31 BUN 19 mg/dl (6-23) 08/22/24 05:31 Creatinine 1.20 mg/dl (0.6-1.2) 08/22/24 05:31 Glucose 93 mg/dl (70-99(Fasting)) 08/22/24 05:31 Hemoglobin A1c 5.6 % (4.5-5.6) 12/08/22 05:53 Magnesium 1.7 mg/dl (1.7-2.4) 08/22/24 05:31 AST 18 U/L (13-39) 08/21/24 19:04 ALT 18 U/L (7-52) 08/21/24 19:04 TSH 0.740 uIu/ml (0.300-4.500) 07/30/24 05:30 Cholesterol 140 mg/dl (0-200) 07/19/22 05:49 LDL Cholesterol, Calc 76 mg/dl 07/19/22 05:49 HDL Cholesterol 48 mg/dl 07/19/22 05:49 Triglycerides 80 mg/dl (0-150) 07/19/22 05:49 WBC 6.25 K/ul (4.8-10.8) 08/22/24 05:31 Hgb 11.9 g/dl (12.0-16.0) L 08/22/24 05:31 Plt Count 166 K/uL (130-400) 08/22/24 05:31 PG Care Time/CCT Total # of Minutes Spent Total Time Spent with Patient: Total time spent is greater than 50% in coordination of care (as documented) at patient's floor/unit and/or counseling patient: [place] [address] INT INP/OBS CARE 1/40MIN Patient Type New History Detailed Exam Detailed Medical Decision Making Moderate Complexity Diagnoses Acute on chronic heart failure with preserved ejection fraction I50.33 Time Spent (min) 45 Updated Medication List Medication Instructions Recorded Confirmed Type amlodipine 5 mg tablet (Norvasc) 5 mg PO QAM #30 tabs 05/21/24 08/21/24 Rx apixaban 2.5 mg tablet (Eliquis) 2.5 mg PO BID #60 tabs 05/21/24 08/21/24 Rx levothyroxine 75 mcg tablet 75 mcg PO DAILYBB #30 tabs 05/21/24 08/21/24 Rx (Synthroid) melatonin 10 mg capsule 10 mg PO HS #30 caps 05/21/24 08/21/24 Rx metoprolol succinate 25 mg 25 mg PO QAM #30 tabs 05/21/24 08/21/24 Rx tablet,extended release 24 hr calcitriol 0.25 mcg capsule 0.25 mcg PO 3XWK 07/16/24 08/21/24 History ferrous fumarate 324 mg (106 mg 324 mg PO QAM 07/16/24 08/21/24 History iron) tablet pantoprazole 40 mg tablet,delayed 40 mg PO AMHS 07/16/24 08/21/24 History release rosuvastatin 10 mg tablet 10 mg PO HS 07/16/24 08/21/24 History trazodone 50 mg tablet 50 mg PO HS 07/16/24 08/21/24 History hydroxyzine HCl 10 mg tablet 10 mg PO TID PRN Anxiety 07/25/24 08/21/24 History acetaminophen 500 mg tablet 500 mg PO TID PRN Pain 08/21/24 08/21/24 History buspirone 15 mg tablet 15 mg PO AMHS 08/21/24 08/21/24 History clopidogrel 75 mg tablet 75 mg PO QAM 08/21/24 08/21/24 History gabapentin 100 mg capsule 100 mg PO AMHS 08/21/24 08/21/24 History loperamide 2 mg capsule 2 mg PO QID PRN Diarrhea 08/21/24 08/21/24 History
[2024-08-22] MEDS: EMPAGLIFLOZIN 10 MG TAB PO SCH (13:33)
[2024-08-22] MEDS: MELATONIN 3 MG TAB PO SCH (19:41)
[2024-08-22] MEDS: ROSUVASTATIN CALCIUM 10 MG TAB PO SCH (19:42)
[2024-08-22] MEDS ORDERED: MELATONIN 3 MG TAB PO SCH (21:00)
[2024-08-23 06:46] LABS: Hematocrit (blood only) 38.6 % (37.0-47.0); Hemoglobin 12.9 g/dl (12.0-16.0); Mean Corpuscular Hemoglobin 29.9 pg (25.0-34.0); Mean Corpuscular Volume 89.4 fL (80.0-100.0); Platelet Count 183 K/uL (130-400); RDW Standard Deviation 48.7 fL (36.4-46.3); Red Blood Count 4.32 M/uL (4.20-5.40); White Blood Count 6.14 K/ul (4.8-10.8)
[2024-08-23 07:21] LABS: Anion Gap 7.0 (3-11); Blood Urea Nitrogen 28.0 mg/dl (6-23); Calcium 10.0 mg/dl (8.6-10.3); Carbon Dioxide 28.0 mmol/L (21-32); Chloride 105.0 mmol/L (98-107); Creatinine Clr Calc Pharmacy 21.9 ml/min; Glucose 93.0 mg/dl (70-99(Fasting)); Magnesium 2.3 mg/dl (1.7-2.4); Potassium 4.2 mmol/L (3.5-5.1); Sodium 140.0 mmol/L (136-145)
[2024-08-23] MEDS: FUROSEMIDE 40 MG TAB PO SCH (08:23)
--- NOTE | 2024-08-23 10:57 | Cardiology Progress Note ---
Date of Service August 23, 2024 Assessment & Plan (1) Acute on chronic heart failure with preserved ejection fraction: Plan 85-year-old female with past medical history significant for hypothyroidism, hypercalcemia, hiatal hernia, thoracic aortic ectasia, CKD stage IIIb, admitted for acute exacerbation of HFpEF. Of note, the patient tells me that she has not previously been admitted for IV diuresis and is not currently on an oral loop diuretic at home. Denies chest pain. No N/V/COLBERT; afebrile. No PND or orthopnea. She no longer has lower extremity edema s/p 40mg IV lasix yesterday and 20mg IV BID today. She has chronic afib. 1. Acute Exacerbation of HFpEF -appears euvolemic now -continue lasix 40mg PO qday -continue Jardiance 10mg qday -DC planning as per primary service -will sign off I provided 50 min of care in regards to management of acute exacerbation of HFpEF. Jamin Hernandez MD Admission and Anticipated Discharge Date Admission Date: August 21, 2024 Subjective Feeling better s/p diuresis. No chest pain. No N/V/COLBERT; afebrile. No PND or orthopnea. Review of Systems Review of Systems: A full 10 point review of systems is otherwise negative unless noted above. Physical Exam Physical Exam: GEN: AAOx3; NAD HEENT: No JVD CV: Irregular rhythm (afib); normal rate; no M/R/G PULM: CTA b/l; no w/r/r ABD: soft; NTND EXT: no lower extremity edema Results & Data Vital Signs (Past 12 Hours) Vital Signs Temp Pulse Pulse Resp BP Pulse Ox Pulse Ox 08/23/24 09:00 95 08/23/24 07:42 36.9 C 71 16 133/79 95 08/23/24 05:50 36.7 C 69 16 131/80 96 08/23/24 00:05 36.5 C 67 17 148/82 H 99 O2 Del Method O2 Del Method 08/23/24 09:00 Room Air 08/23/24 07:42 Room Air 08/23/24 05:50 Room Air 08/23/24 00:05 Room Air Results Complete Blood Count Results: RBC 4.32 M/uL (4.20-5.40) 08/23/24 WBC 6.14 K/ul (4.8-10.8) 08/23/24 Hgb 12.9 g/dl (12.0-16.0) 08/23/24 Hct 38.6 % (37.0-47.0) 08/23/24 Plt Count 183 K/uL (130-400) 08/23/24 Results BMP Results: Sodium 140 mmol/L (136-145) 08/23/24 Potassium 4.2 mmol/L (3.5-5.1) 08/23/24 Chloride 105 mmol/L (98-107) 08/23/24 Carbon Dioxide 28 mmol/L (21-32) 08/23/24 Anion Gap 7 (3-11) 08/23/24 BUN 28 mg/dl (6-23) H 08/23/24 Creatinine 1.67 mg/dl (0.6-1.2) H 08/23/24 Glucose 93 mg/dl (70-99(Fasting)) 08/23/24 Results Cardiology Web EHR Widget: Cardiology Consultation 08/22/24 12:21 Cardiology Progress Note 03/22/24 15:10 Cardiology Visit 11/30/22 08:48 Electrocardiogram 08/21/24 18:57 Echocardiogram 04/26/24 15:24 Transthoracic Echocardiogram 03/16/24 15:28 Troponin I < 0.03 ng/ml (0-0.04) 05/07/21 15:04 Troponin I High Sens 10.2 pg/ml (0-14) 08/22/24 05:31 Total Creatine Kinase 118 U/L (26-192) 03/18/24 13:06 CK-MB (CK-2) 2.2 ng/ml (0.5-3.6) 03/11/18 15:00 D-Dimer 730 ug/L FEU (0-500) H* 12/01/21 08:07 B-Natriuretic Peptide 415 pg/ml (0-100) H 08/21/24 19:04 APTT 20 Seconds (21-31) L 07/25/24 11:23 PT 11.5 Seconds (9.0-12.0) 07/25/24 11:23 INR 1.1 (0.9-1.1) 07/25/24 11:23 Sodium 140 mmol/L (136-145) 08/23/24 06:11 Potassium 4.2 mmol/L (3.5-5.1) 08/23/24 06:11 BUN 28 mg/dl (6-23) H 08/23/24 06:11 Creatinine 1.67 mg/dl (0.6-1.2) H 08/23/24 06:11 Glucose 93 mg/dl (70-99(Fasting)) 08/23/24 06:11 Hemoglobin A1c 5.6 % (4.5-5.6) 12/08/22 05:53 Magnesium 2.3 mg/dl (1.7-2.4) 08/23/24 06:11 AST 18 U/L (13-39) 08/21/24 19:04 ALT 18 U/L (7-52) 08/21/24 19:04 TSH 0.740 uIu/ml (0.300-4.500) 07/30/24 05:30 Cholesterol 140 mg/dl (0-200) 07/19/22 05:49 LDL Cholesterol, Calc 76 mg/dl 07/19/22 05:49 HDL Cholesterol 48 mg/dl 07/19/22 05:49 Triglycerides 80 mg/dl (0-150) 07/19/22 05:49 WBC 6.14 K/ul (4.8-10.8) 08/23/24 06:11 Hgb 12.9 g/dl (12.0-16.0) 08/23/24 06:11 Plt Count 183 K/uL (130-400) 08/23/24 06:11 PG Care Time/CCT Total # of Minutes Spent Total Time Spent with Patient: Total time spent is greater than 50% in coordination of care (as documented) at patient's floor/unit and/or counseling patient: Coding [place] [address] SUB INP/OBS CARE 3/50MIN Patient Type Established History Comprehensive Exam Comprehensive Medical Decision Making High Complexity Diagnoses Acute on chronic heart failure with preserved ejection fraction I50.33 Time Spent (min) 50 Updated Medication List Medication Instructions Recorded Confirmed Type amlodipine 5 mg tablet (Norvasc) 5 mg PO QAM #30 tabs 05/21/24 08/21/24 Rx apixaban 2.5 mg tablet (Eliquis) 2.5 mg PO BID #60 tabs 05/21/24 08/21/24 Rx levothyroxine 75 mcg tablet 75 mcg PO DAILYBB #30 tabs 05/21/24 08/21/24 Rx (Synthroid) melatonin 10 mg capsule 10 mg PO HS #30 caps 05/21/24 08/21/24 Rx metoprolol succinate 25 mg 25 mg PO QAM #30 tabs 05/21/24 08/21/24 Rx tablet,extended release 24 hr calcitriol 0.25 mcg capsule 0.25 mcg PO 3XWK 07/16/24 08/21/24 History ferrous fumarate 324 mg (106 mg 324 mg PO QAM 07/16/24 08/21/24 History iron) tablet pantoprazole 40 mg tablet,delayed 40 mg PO AMHS 07/16/24 08/21/24 History release rosuvastatin 10 mg tablet 10 mg PO HS 07/16/24 08/21/24 History trazodone 50 mg tablet 50 mg PO HS 07/16/24 08/21/24 History hydroxyzine HCl 10 mg tablet 10 mg PO TID PRN Anxiety 07/25/24 08/21/24 History acetaminophen 500 mg tablet 500 mg PO TID PRN Pain 08/21/24 08/21/24 History buspirone 15 mg tablet 15 mg PO AMHS 08/21/24 08/21/24 History clopidogrel 75 mg tablet 75 mg PO QAM 08/21/24 08/21/24 History gabapentin 100 mg capsule 100 mg PO AMHS 08/21/24 08/21/24 History loperamide 2 mg capsule 2 mg PO QID PRN Diarrhea 08/21/24 08/21/24 History Meds Home Medications and Allergies Home Medications Medication Instructions Recorded Confirmed Type calcitriol 0.25 mcg capsule 0.25 mcg PO 3XWK 07/16/24 08/21/24 History ferrous fumarate 324 mg (106 mg 324 mg PO QAM 07/16/24 08/21/24 History iron) tablet pantoprazole 40 mg tablet,delayed 40 mg PO AMHS 07/16/24 08/21/24 History release rosuvastatin 10 mg tablet 10 mg PO HS 07/16/24 08/21/24 History trazodone 50 mg tablet 50 mg PO HS 07/16/24 08/21/24 History hydroxyzine HCl 10 mg tablet 10 mg PO TID PRN Anxiety 07/25/24 08/21/24 History acetaminophen 500 mg tablet 500 mg PO TID PRN Pain 08/21/24 08/21/24 History buspirone 15 mg tablet 15 mg PO AMHS 08/21/24 08/21/24 History clopidogrel 75 mg tablet 75 mg PO QAM 08/21/24 08/21/24 History gabapentin 100 mg capsule 100 mg PO AMHS 08/21/24 08/21/24 History loperamide 2 mg capsule 2 mg PO QID PRN Diarrhea 08/21/24 08/21/24 History Allergies Allergy/AdvReac Type Severity Reaction Status Date / Time nitroglycerin AdvReac Severe "PROJECTILE Verified 07/16/24 18:45 VOMITTING" ergotamine AdvReac Intermediate vomiting Verified 07/16/24 18:45
--- NOTE | 2024-08-23 11:47 | Hospitalist Progress Note ---
Date of Service August 23, 2024 Assessment & Plan (1) Acute on chronic heart failure with preserved ejection fraction: Plan: 85-year-old female with past medical history significant for hypothyroidism, hypercalcemia, hiatal hernia, thoracic aortic ectasia, CKD stage IIIb, heart failure with preserved ejection fraction, CAD, status post CABG, hypertension, chronic atrial fibrillation, mild aortic stenosis, history of CVA, GERD, history of multiple lacunar infarcts, osteoarthrosis, scoliosis of lumbar spine, shoulder arthritis, degenerative disc disease, meningioma, encephalomalacia, depression, insomnia, mixed incontinence of urge and stress, history of gastric ulcers, anxiety, cognitive deficits who lives alone was brought in because of shortness of breath. Patient states shortness of breath started today. Says she was short of breath even while resting. Denies any cough. Denies fevers. Denies chest pain. Denies headache. Denies dizziness. No runny nose or sore throat. Appetite is okay. No difficulty swallowing. No nausea. No abdominal pain. Normal bowel and bladder movements. Ambulated okay in the ER. With ambulation she got more short of breath. Patient says when she goes outside she uses walker. Patient recently admitted in July 2024 with shortness of breath and chest pain. Shortness of breath thought to be from recent parainfluenza infection. During her admission office of aging was involved as there was question of patient unsafe to live alone. As per the community health worker home visit today patient seems to be missing appointments. She did not know that she had appointment with PCP today. And patient told that she did not had any food in the house but when community health worker checked in refrigerator and freezer there was plenty of food. CHW when checked she seems to be discharged from [facility] in June. And when she walked to bathroom and came back she was very short of breath and CHW took vitals her blood pressure was elevated. Currently patient is able to tell her name. Knows her d ate of . Knows that she is in the hospital. #Decompensated Acute on chronic heart failure with preserved ejection fraction -Came with shortness of breath. Chest x-ray pulmonary congestion. Has mild pedal edema. -improved SOB today Plan: -appreciate cardiology recs -switch to PO lasix at this time #Dementia -patient has clear cognitive deficits on exam, not remembering what brought her to hospital -has case open with office of aging -patient misses doctors appointments, has history of being very poor historian, concerns about ability to live alone -MOCA Plan: -discussed with case management, will discuss with Office of Aging regarding next steps, clinical concern about ability of patient to take care of self -likely needs guardianship Chronic A-fib -Metoprolol dose was decreased to 25 mg recently because of bradycardia -On Eliquis Hypothyroidism -On Synthyroid GERD -On Protonix Hyperlipidemia -On statin History of CAD status post CABG -On Plavix, Eliquis, statin and beta-brendan History of CVA -On Plavix and statin and Eliquis CKD stage IIIb -Presented with creatinine 1.1 Hypertension -On amlodipine and metoprolol Depression Anxiety -On buspirone and trazodone Insomnia -On trazodone Generalized osteoarthritis -On gabapentin and Tylenol as needed I spent a total of 45 minutes in direct patient care, including [id number] time with the patient and/or family, reviewing medical records, ordering and reviewing diagnostic tests, and coordinating care with other healthcare providers. This time includes: history taking, physical examination, medical decision making, counseling, ECG interpretation, imaging interpretation, lab interpretation, orders, and education, excluding time spent in the performance of separately billed services. Admission and Anticipated Discharge Date Admission Date: August 21, 2024 Subjective Patient seen and examined at bedside. Patient doing ok today. Does not remember why she was admitted to the hospital, and does not remember her symptoms or why she came. SOB improved today. Review of Systems Review of Systems: CONSTITUTIONAL: Patient denies fevers, chills, sweats and weight changes. EYES: Patient denies any visual symptoms. EARS, NOSE, AND THROAT: No difficulties with hearing. No symptoms of rhinitis or sore throat. CARDIOVASCULAR: Patient denies chest pains, palpitations, orthopnea and paroxysmal nocturnal dyspnea. RESPIRATORY: SOB GI: No nausea, vomiting, diarrhea, constipation, abdominal pain, hematochezia or melena. : No urinary hesitancy or dribbling. No nocturia or urinary frequency. No abnormal urethral discharge. MUSCULOSKELETAL: No myalgias or arthralgias. NEUROLOGIC: No chronic headaches, no seizures. Patient denies numbness, tingling or weakness. PSYCHIATRIC: Patient denies problems with mood disturbance. No problems with anxiety. ENDOCRINE: No excessive urination or excessive thirst. DERMATOLOGIC: Patient denies any rashes or skin changes. Physical Exam Physical Exam: Gen: A&O 2 NAD HEENT: NCAT, EOMI, not icteric. External ears normal. No rhinorrhea. Moist mucous membranes. Neck: Supple, full range of motion, no observable masses, No meningeal sign. Lungs: trace rhonchi in bilateral lower lobes worse on right CV: RRR, no edema. Abdomen: Soft, nondistended, No rebound tenderness. MSK: No joint swelling, no redness. Skin: No rashes, petechiae, lesions. Normal color per patient. Neuro: Normal Gait, Grossly intact. Results & Data Results & Data Vital Signs (Past 12 Hours) Vital Signs Temp Pulse Pulse Resp BP Pulse Ox Pulse Ox 08/23/24 11:21 36.4 C L 64 18 119/72 95 08/23/24 09:00 95 08/23/24 07:42 36.9 C 71 16 133/79 95 08/23/24 05:50 36.7 C 69 16 131/80 96 08/23/24 00:05 36.5 C 67 17 148/82 H 99 O2 Del Method O2 Del Method 08/23/24 11:21 Room Air 08/23/24 09:00 Room Air 08/23/24 07:42 Room Air 08/23/24 05:50 Room Air 08/23/24 00:05 Room Air Laboratory Results -personally reviewed, creatinine around baseline Medications Administered Amlodipine Besylate (Amlodipine Besylate 5 Mg Tab) 5 mg PO QAM YAN Stop: 09/21/24 08:59 Last Admin: 08/23/24 08:26 Dose: 5 mg Documented By: Admin: 08/22/24 07:54 Dose: 5 mg Documented By: DEVIN Apixaban (Apixaban 2.5 Mg Tab) 2.5 mg PO BID [facility] Stop: 09/21/24 08:59 Last Admin: 08/23/24 08:24 Dose: 2.5 mg Documented By: Admin: 08/22/24 19:41 Dose: 2.5 mg Documented By: Admin: 08/22/24 07:55 Dose: 2.5 mg Documented By: DEVIN Buspirone HCl (Buspirone 15 Mg Tab) 15 mg PO [facility] Stop: 09/21/24 08:59 Last Admin: 08/23/24 08:25 Dose: 15 mg Documented By: Admin: 08/22/24 19:42 Dose: 15 mg Documented By: Admin: 08/22/24 07:55 Dose: 15 mg Documented By: GPF Calcitriol (Calcitriol 0.25 Mcg Capsule) 0.25 mcg PO MoWeFr@0900 [facility] Stop: 09/21/24 08:59 Last Admin: 08/22/24 07:54 Dose: 0.25 mcg Documented By: GPF Clopidogrel Bisulfate (Clopidogrel Bisulfate 75 Mg Tab) [facility] [place] Stop: 09/21/24 08:59 Last Admin: 08/23/24 08:24 Dose: 75 mg Documented By: Admin: 08/22/24 07:54 Dose: 75 mg Documented By: DEVIN Empagliflozin (Empagliflozin 10 Mg Tab) 10 mg PO DAILY [facility] Stop: 09/21/24 12:29 Last Admin: 08/23/24 08:23 Dose: 10 mg Documented By: Admin: 08/22/24 13:33 Dose: 10 mg Documented By: GPF Furosemide (Furosemide 40 Mg Tab) 40 mg PO [facility] Stop: 09/22/24 08:59 Last Admin: 08/23/24 08:23 Dose: 40 mg Documented By: MELISSA Levothyroxine Sodium (Levothyroxine Sodium 75 Mcg Tablet) [facility] Stop: 09/21/24 06:29 Last Admin: 08/23/24 06:12 Dose: 75 mcg Documented By: Admin: 08/22/24 06:21 Dose: 75 mcg Documented By: MATTHEW Melatonin (Melatonin 3 Mg Tab) 3 mg PO [facility] Stop: 09/21/24 20:59 Last Admin: 08/22/24 19:41 Dose: 3 mg Documented By: LAITH Metoprolol Succinate (Metoprolol Succ 25mg Ext Rel Tab) 25 [facility] [place] Stop: 09/21/24 08:59 Last Admin: 08/23/24 08:25 Dose: 25 mg Documented By: Admin: 08/22/24 07:54 Dose: 25 mg Documented By: GPEl Pantoprazole Sodium (Pantoprazole 40 Mg Tab) 40 mg PO [facility] Stop: 09/21/24 08:59 Last Admin: 08/23/24 08:25 Dose: 40 mg Documented By: Admin: 08/22/24 19:42 Dose: 40 mg Documented By: Admin: 08/22/24 07:55 Dose: 40 mg Documented By: DEVIN Rosuvastatin Calcium (Rosuvastatin Calcium 10 Mg Tab) 10 mg PO HS YAN Stop: 09/21/24 20:59 Last Admin: 08/22/24 19:42 Dose: 10 mg Documented By: LAITH Trazodone HCl (Trazodone Hcl 50 Mg Tab) 50 mg PO HS [facility]AN Stop: 09/21/24 20:59 Last Admin: 08/22/24 20:02 Dose: 50 mg Documented By: LAITH
--- NOTE | 2024-08-23 13:25 | XCELERA ---
[id number] \\[email or web address]\[id number]
--- NOTE | 2024-08-23 16:52 | Communication Note ---
Patient does not have capacity to leave AMA at this time. 4 elements of medical capacity listed below per my evaluation: 1. She does not know/understand the reason she was admitted to the hospital, she has already forgotten she was admitted for decompensated heart failure causing SOB. 2. She does not understand that she has been missing doctors appoints (see history and physical), expresses she does not have food at home even though she does. 3. Is unable to appreciate her significant memory impairement (MOCA 22), and denies being confused (per nursing staff documentation, my examination patient is indeed confused). 4. Is unable to express what will happen to her when she goes home. In short, throughout day patient did not show capacity to be discharged. This provider also has significant concern regarding safety of discharge home, with concern patient is unable to care for self. Office of Aging involved, will discuss potential guardianship investigation with Office of Aging on Sunday. Date of Service: August 23, 2024
[2024-08-23] MEDS: busPIRone 5 MG TAB PO SCH (20:42)
[2024-08-23] MEDS: ACETAMINOPHEN 325 MG TAB PO PRN (21:48)
[2024-08-24 07:56] LABS: Hematocrit (blood only) 41.4 % (37.0-47.0); Hemoglobin 13.5 g/dl (12.0-16.0); Mean Corpuscular Hemoglobin 29.7 pg (25.0-34.0); Mean Corpuscular Volume 91.0 fL (80.0-100.0); Platelet Count 186 K/uL (130-400); RDW Standard Deviation 49.1 fL (36.4-46.3); Red Blood Count 4.55 M/uL (4.20-5.40); White Blood Count 5.25 K/ul (4.8-10.8)
[2024-08-24 08:11] LABS: Anion Gap 6.0 (3-11); Blood Urea Nitrogen 27.0 mg/dl (6-23); Calcium 10.3 mg/dl (8.6-10.3); Carbon Dioxide 29.0 mmol/L (21-32); Chloride 103.0 mmol/L (98-107); Creatinine Clr Calc Pharmacy 23.0 ml/min; Glucose 95.0 mg/dl (70-99(Fasting)); Magnesium 2.2 mg/dl (1.7-2.4); Potassium 4.5 mmol/L (3.5-5.1); Sodium 138.0 mmol/L (136-145)
--- NOTE | 2024-08-24 12:25 | Hospitalist Progress Note ---
Date of Service August 24, 2024 Assessment & Plan (1) Acute on chronic heart failure with preserved ejection fraction: Plan: 85-year-old female with past medical history significant for hypothyroidism, hypercalcemia, hiatal hernia, thoracic aortic ectasia, CKD stage IIIb, heart failure with preserved ejection fraction, CAD, status post CABG, hypertension, chronic atrial fibrillation, mild aortic stenosis, history of CVA, GERD, history of multiple lacunar infarcts, osteoarthrosis, scoliosis of lumbar spine, shoulder arthritis, degenerative disc disease, meningioma, encephalomalacia, depression, insomnia, mixed incontinence of urge and stress, history of gastric ulcers, anxiety, cognitive deficits who lives alone was brought in because of shortness of breath. Patient says when she goes outside she uses walker. Patient recently admitted in July 2024 with shortness of breath and chest pain. Shortness of breath thought to be from recent parainfluenza infection. During her admission office of aging was involved as there was question of patient unsafe to live alone. As per the community health worker home visit today patient seems to be missing appointments. She did not know that she had appointment with PCP today. And patient told that she did not had any food in the house but when community health worker checked in refrigerator and freezer there was plenty of food. CHW when checked she seems to be discharged from [facility] in June. #Decompensated Acute on chronic heart failure with preserved ejection fraction -Came with shortness of breath. Chest x-ray pulmonary congestion. Has mild pedal edema. -improved SOB today Plan: -appreciate cardiology recs -continue PO lasix at this time #Dementia -patient has clear cognitive deficits on exam, not remembering what brought her to hospital -has case open with office of aging -patient misses doctors appointments, has history of being very poor historian, concerns about ability to live alone -MOCA Plan: -discussed with case management, will discuss with Office of Aging regarding next steps on Sunday, clinical concern about ability of patient to take care of self -likely needs guardianship -if needs zyprexa again tonight will start seroquel at bedtime to reduce agitation and promote sleep wake cycle Chronic A-fib -Metoprolol dose was decreased to 25 mg recently because of bradycardia -On Eliquis Hypothyroidism -On Synthyroid GERD -On Protonix Hyperlipidemia -On statin History of CAD status post CABG -On Plavix, Eliquis, statin and beta-brendan History of CVA -On Plavix and statin and Eliquis CKD stage IIIb -Presented with creatinine 1.1 Hypertension -On amlodipine and metoprolol Depression Anxiety -On buspirone and trazodone Insomnia -On trazodone Generalized osteoarthritis -On gabapentin and Tylenol as needed I spent a total of 40 minutes in direct patient care, including [id number] time with the patient and/or family, reviewing medical records, ordering and reviewing diagnostic tests, and coordinating care with other healthcare providers. This time includes: history taking, physical examination, medical decision making, counseling, ECG interpretation, imaging interpretation, lab interpretation, orders, and education, excluding time spent in the performance of separately billed services. Admission and Anticipated Discharge Date Admission Date: August 21, 2024 Subjective Patient seen and examined at bedside. Patient comfortable at this time. Was agitated overnight and given zyprexa. Review of Systems Review of Systems: CONSTITUTIONAL: Patient denies fevers, chills, sweats and weight changes. EYES: Patient denies any visual symptoms. EARS, NOSE, AND THROAT: No difficulties with hearing. No symptoms of rhinitis or sore throat. CARDIOVASCULAR: Patient denies chest pains, palpitations, orthopnea and paroxysmal nocturnal dyspnea. RESPIRATORY: SOB GI: No nausea, vomiting, diarrhea, constipation, abdominal pain, hematochezia or melena. : No urinary hesitancy or dribbling. No nocturia or urinary frequency. No abnormal urethral discharge. MUSCULOSKELETAL: No myalgias or arthralgias. NEUROLOGIC: No chronic headaches, no seizures. Patient denies numbness, tingling or weakness. PSYCHIATRIC: Patient denies problems with mood disturbance. No problems with anxiety. ENDOCRINE: No excessive urination or excessive thirst. DERMATOLOGIC: Patient denies any rashes or skin changes. Physical Exam Physical Exam: Gen: A&O 2-3 NAD HEENT: NCAT, EOMI, not icteric. External ears normal. No rhinorrhea. Moist mucous membranes. Neck: Supple, full range of motion, no observable masses, No meningeal sign. Lungs: trace rhonchi in bilateral lower lobes worse on right CV: RRR, no edema. Abdomen: Soft, nondistended, No rebound tenderness. MSK: No joint swelling, no redness. Skin: No rashes, petechiae, lesions. Normal color per patient. Neuro: Normal Gait, Grossly intact. Results & Data Results & Data Vital Signs (Past 12 Hours) Vital Signs Temp Pulse Resp BP Pulse Ox O2 Del Method O2 Del Method 08/24/24 09:26 Room Air 08/24/24 09:25 Room Air 08/24/24 07:03 36.3 C L 71 18 140/88 99 Room Air 08/24/24 02:45 73 22 111/78 95 Room Air Laboratory Results -personally reviewed, creatinine improving, no leukocytosis Medications Administered Acetaminophen (Acetaminophen 325 Mg Tab) 650 mg PO Q4H PRN PRN Reason: Pain or Fever Stop: 09/21/24 01:34 Last Admin: 08/23/24 21:48 Dose: 650 mg Documented By: NEELAM Amlodipine Besylate (Amlodipine Besylate 5 Mg Tab) 5 mg PO QAM [facility] Stop: 09/21/24 08:59 Last Admin: 08/24/24 07:50 Dose: 5 mg Documented By: Admin: 08/23/24 08:26 Dose: 5 mg Documented By: Admin: 08/22/24 07:54 Dose: 5 mg Documented By: DEVIN Apixaban (Apixaban 2.5 Mg Tab) 2.5 mg PO BID [facility] Stop: 09/21/24 08:59 Last Admin: 08/24/24 07:51 Dose: 2.5 mg Documented By: Admin: 08/23/24 20:43 Dose: 2.5 mg Documented By: Admin: 08/23/24 08:24 Dose: 2.5 mg Documented By: Admin: 08/22/24 19:41 Dose: 2.5 mg Documented By: Admin: 08/22/24 07:55 Dose: 2.5 mg Documented By: DEVIN Buspirone HCl (Buspirone 5 Mg Tab) 5 mg PO TID [facility] Stop: 09/22/24 20:59 Last Admin: 08/24/24 07:49 Dose: 5 mg Documented By: Admin: 08/23/24 20:42 Dose: 5 mg Documented By: NEELAM Calcitriol (Calcitriol 0.25 Mcg Capsule) 0.25 mcg PO MoWeFr@0900 [facility] Stop: 09/21/24 08:59 Last Admin: 08/22/24 07:54 Dose: 0.25 mcg Documented By: DEVIN Clopidogrel Bisulfate (Clopidogrel Bisulfate 75 Mg Tab) [facility] Stop: 09/21/24 08:59 Last Admin: 08/24/24 07:50 Dose: 75 mg Documented By: Admin: 08/23/24 08:24 Dose: 75 mg Documented By: Admin: 08/22/24 07:54 Dose: 75 mg Documented By: DEVIN Empagliflozin (Empagliflozin 10 Mg Tab) 10 mg PO DAILY [facility] Stop: 09/21/24 12:29 Last Admin: 08/24/24 07:50 Dose: 10 mg Documented By: Admin: 08/23/24 08:23 Dose: 10 mg Documented By: Admin: 08/22/24 13:33 Dose: 10 mg Documented By: DEVIN Furosemide (Furosemide 40 Mg Tab) [facility] [place] Stop: 09/22/24 08:59 Last Admin: 08/24/24 08:21 Dose: 40 mg Documented By: Admin: 08/23/24 08:23 Dose: 40 mg Documented By: MELISSA Levothyroxine Sodium (Levothyroxine Sodium 75 Mcg Tablet) [facility] Stop: 09/21/24 06:29 Last Admin: 08/24/24 07:50 Dose: 75 mcg Documented By: Admin: 08/23/24 06:12 Dose: 75 mcg Documented By: Admin: 08/22/24 06:21 Dose: 75 mcg Documented By: MATTHEW Melatonin (Melatonin 3 Mg Tab) 3 mg PO [facility] Stop: 09/21/24 20:59 Last Admin: 08/23/24 20:43 Dose: 3 mg Documented By: Admin: 08/22/24 19:41 Dose: 3 mg Documented By: LAITH Metoprolol Succinate (Metoprolol Succ 25mg Ext Rel Tab) [facility] Stop: 09/21/24 08:59 Last Admin: 08/24/24 07:50 Dose: 25 mg Documented By: Admin: 08/23/24 08:25 Dose: 25 mg Documented By: Admin: 08/22/24 07:54 Dose: 25 mg Documented By: DEVIN Pantoprazole Sodium (Pantoprazole 40 Mg Tab) 40 mg PO [facility] Stop: 09/21/24 08:59 Last Admin: 08/24/24 07:51 Dose: 40 mg Documented By: Admin: 08/23/24 20:44 Dose: 40 mg Documented By: Admin: 08/23/24 08:25 Dose: 40 mg Documented By: Admin: 08/22/24 19:42 Dose: 40 mg Documented By: Admin: 08/22/24 07:55 Dose: 40 mg Documented By: DEVIN Rosuvastatin Calcium (Rosuvastatin Calcium 10 Mg Tab) 10 mg PO [facility] Stop: 09/21/24 20:59 Last Admin: 08/23/24 20:44 Dose: 10 mg Documented By: Admin: 08/22/24 19:42 Dose: 10 mg Documented By: LAITH Trazodone HCl (Trazodone Hcl 50 Mg Tab) 50 mg PO [facility] Stop: 09/21/24 20:59 Last Admin: 08/23/24 20:42 Dose: 50 mg Documented By: Admin: 08/22/24 20:02 Dose: 50 mg Documented By: LAITH
--- NOTE | 2024-08-24 22:15 | Electrocardiogram Report ---
Test Reason : Blood Pressure : */* mmHG Vent. Rate : 65 BPM Atrial Rate : * BPM P-R Int : * ms QRS Dur : 86 ms QT Int : 406 ms P-R-T Axes : * -10 -3 degrees QTcB Int : 422 ms Atrial fibrillation Septal infarct (cited on or before 25-Jul-2024) Inferior infarct , age undetermined Abnormal ECG When compared with ECG of 25-Jul-2024 11:07, Inferior infarct is now Present Questionable change in initial forces of Anterior leads Confirmed by Venu Seay ([id number]) on 08/24/2024 10:14:48 PM Referred By: REFERRED SELF Confirmed By: Venu Seay
[2024-08-25 08:16] LABS: Hematocrit (blood only) 39.2 % (37.0-47.0); Hemoglobin 13.1 g/dl (12.0-16.0); Mean Corpuscular Hemoglobin 30.1 pg (25.0-34.0); Mean Corpuscular Volume 90.1 fL (80.0-100.0); Platelet Count 193 K/uL (130-400); RDW Standard Deviation 48.2 fL (36.4-46.3); Red Blood Count 4.35 M/uL (4.20-5.40); White Blood Count 5.49 K/ul (4.8-10.8)
[2024-08-25 08:34] LABS: Anion Gap 7.0 (3-11); Blood Urea Nitrogen 27.0 mg/dl (6-23); Calcium 10.0 mg/dl (8.6-10.3); Carbon Dioxide 27.0 mmol/L (21-32); Chloride 105.0 mmol/L (98-107); Creatinine Clr Calc Pharmacy 24.8 ml/min; Glucose 89.0 mg/dl (70-99(Fasting)); Potassium 3.8 mmol/L (3.5-5.1); Sodium 139.0 mmol/L (136-145)
--- NOTE | 2024-08-25 12:10 | Hospitalist Progress Note ---
Date of Service August 25, 2024 Assessment & Plan (1) Acute on chronic heart failure with preserved ejection fraction: Plan: 85-year-old female with past medical history significant for hypothyroidism, hypercalcemia, hiatal hernia, thoracic aortic ectasia, CKD stage IIIb, heart failure with preserved ejection fraction, CAD, status post CABG, hypertension, chronic atrial fibrillation, mild aortic stenosis, history of CVA, GERD, history of multiple lacunar infarcts, osteoarthrosis, scoliosis of lumbar spine, shoulder arthritis, degenerative disc disease, meningioma, encephalomalacia, depression, insomnia, mixed incontinence of urge and stress, history of gastric ulcers, anxiety, cognitive deficits who lives alone was brought in because of shortness of breath. Patient says when she goes outside she uses walker. Patient recently admitted in July 2024 with shortness of breath and chest pain. Shortness of breath thought to be from recent parainfluenza infection. During her admission office of aging was involved as there was question of patient unsafe to live alone. As per the community health worker home visit today patient seems to be missing appointments. She did not know that she had appointment with PCP today. And patient told that she did not had any food in the house but when community health worker checked in refrigerator and freezer there was plenty of food. CHW when checked she seems to be discharged from [facility] in June. #Decompensated Acute on chronic heart failure with preserved ejection fraction -Came with shortness of breath. Chest x-ray pulmonary congestion. Has mild pedal edema. -improved SOB today Plan: -appreciate cardiology recs -continue PO lasix at this time #Dementia -patient has clear cognitive deficits on exam, not remembering what brought her to hospital -has case open with office of aging -patient misses doctors appointments, has history of being very poor historian, concerns about ability to live alone -MOCA Plan: -discussed with case management, will discuss with Office of Aging regarding next steps on Sunday, clinical concern about ability of patient to take care of self -likely needs guardianship -if needs zyprexa again will start low dose seroquel at bedtime to reduce agitation and promote sleep wake cycle -patient is a safety risk to be discharged home at this time given very poor memory, inability to take care of self, minimal support at home Chronic A-fib -Metoprolol dose was decreased to 25 mg recently because of bradycardia -On Eliquis Hypothyroidism -On Synthyroid GERD -On Protonix Hyperlipidemia -On statin History of CAD status post CABG -On Plavix, Eliquis, statin and beta-brendan History of CVA -On Plavix and statin and Eliquis CKD stage IIIb -Presented with creatinine 1.1 Hypertension -On amlodipine and metoprolol Depression Anxiety -On buspirone and trazodone Insomnia -On trazodone Generalized osteoarthritis -On gabapentin and Tylenol as needed I spent a total of 40 minutes in direct patient care, including [id number] time with the patient and/or family, reviewing medical records, ordering and r eviewing diagnostic tests, and coordinating care with other healthcare providers. This time includes: history taking, physical examination, medical decision making, counseling, ECG interpretation, imaging interpretation, lab interpretation, orders, and education, excluding time spent in the performance of separately billed services. Admission and Anticipated Discharge Date Admission Date: August 21, 2024 Subjective Patient seen and examined at bedside. Patient very pleasant, did not remember this provider this morning. States "this feels like a hotel." Review of Systems Review of Systems: CONSTITUTIONAL: Patient denies fevers, chills, sweats and weight changes. EYES: Patient denies any visual symptoms. EARS, NOSE, AND THROAT: No difficulties with hearing. No symptoms of rhinitis or sore throat. CARDIOVASCULAR: Patient denies chest pains, palpitations, orthopnea and paroxysmal nocturnal dyspnea. RESPIRATORY: SOB GI: No nausea, vomiting, diarrhea, constipation, abdominal pain, hematochezia or melena. : No urinary hesitancy or dribbling. No nocturia or urinary frequency. No abnormal urethral discharge. MUSCULOSKELETAL: No myalgias or arthralgias. NEUROLOGIC: No chronic headaches, no seizures. Patient denies numbness, tingling or weakness. PSYCHIATRIC: Patient denies problems with mood disturbance. No problems with anxiety. ENDOCRINE: No excessive urination or excessive thirst. DERMATOLOGIC: Patient denies any rashes or skin changes. Physical Exam Physical Exam: Gen: A&O 2-3 NAD HEENT: NCAT, EOMI, not icteric. External ears normal. No rhinorrhea. Moist mucous membranes. Neck: Supple, full range of motion, no observable masses, No meningeal sign. Lungs: trace rhonchi in bilateral lower lobes worse on right CV: RRR, no edema. Abdomen: Soft, nondistended, No rebound tenderness. MSK: No joint swelling, no redness. Skin: No rashes, petechiae, lesions. Normal color per patient. Neuro: Normal Gait, Grossly intact. Results & Data Results & Data Vital Signs (Past 12 Hours) Vital Signs Temp Pulse Resp BP Pulse Ox O2 Del Method 08/25/24 08:46 36.4 C L 85 18 154/84 H 97 Room Air Laboratory Results -personally reviewed, creatinine continues to downtrend, no leukocytosis Medications Administered Acetaminophen (Acetaminophen 325 Mg Tab) 650 mg PO Q4H PRN PRN Reason: Pain or Fever Stop: 09/21/24 01:34 Last Admin: 08/23/24 21:48 Dose: 650 mg Documented By: NEELAM Amlodipine Besylate (Amlodipine Besylate 5 Mg Tab) 5 mg PO [facility] Stop: 09/21/24 08:59 Last Admin: 08/25/24 08:44 Dose: 5 mg Documented By: Admin: 08/24/24 07:50 Dose: 5 mg Documented By: Admin: 08/23/24 08:26 Dose: 5 mg Documented By: Admin: 08/22/24 07:54 Dose: 5 mg Documented By: DEVIN Apixaban (Apixaban 2.5 Mg Tab) 2.5 mg PO BID [facility] Stop: 09/21/24 08:59 Last Admin: 08/25/24 08:45 Dose: 2.5 mg Documented By: Admin: 08/24/24 20:13 Dose: 2.5 mg Documented By: JOSE M Admin: 08/24/24 07:51 Dose: 2.5 mg Documented By: Admin: 08/23/24 20:43 Dose: 2.5 mg Documented By: Admin: 08/23/24 08:24 Dose: 2.5 mg Documented By: Admin: 08/22/24 19:41 Dose: 2.5 mg Documented By: Admin: 08/22/24 07:55 Dose: 2.5 mg Documented By: DEVIN Buspirone HCl (Buspirone 5 Mg Tab) 5 mg PO TID [facility] Stop: 09/22/24 20:59 Last Admin: 08/25/24 08:45 Dose: 5 mg Documented By: Admin: 08/24/24 20:13 Dose: 5 mg Documented By: JOSE M Admin: 08/24/24 13:25 Dose: 5 mg Documented By: Admin: 08/24/24 07:49 Dose: 5 mg Documented By: Admin: 08/23/24 20:42 Dose: 5 mg Documented By: NEELAM Calcitriol (Calcitriol 0.25 Mcg Capsule) 0.25 mcg PO MoWeFr@0900 [facility] Stop: 09/21/24 08:59 Last Admin: 08/25/24 08:44 Dose: 0.25 mcg Documented By: Admin: 08/22/24 07:54 Dose: 0.25 mcg Documented By: DEVIN Clopidogrel Bisulfate (Clopidogrel Bisulfate 75 Mg Tab) 75 mg PO [facility] Stop: 09/21/24 08:59 Last Admin: 08/25/24 08:45 Dose: 75 mg Documented By: Admin: 08/24/24 07:50 Dose: 75 mg Documented By: Admin: 08/23/24 08:24 Dose: 75 mg Documented By: Admin: 08/22/24 07:54 Dose: 75 mg Documented By: DEVIN Empagliflozin (Empagliflozin 10 Mg Tab) 10 mg PO DAILY [facility] Stop: 09/21/24 12:29 Last Admin: 08/25/24 08:45 Dose: 10 mg Documented By: Admin: 08/24/24 07:50 Dose: 10 mg Documented By: Admin: 08/23/24 08:23 Dose: 10 mg Documented By: Admin: 08/22/24 13:33 Dose: 10 mg Documented By: DEVIN Furosemide (Furosemide 40 Mg Tab) 40 mg PO [facility] Stop: 09/22/24 08:59 Last Admin: 08/25/24 08:44 Dose: 40 mg Documented By: Admin: 08/24/24 08:21 Dose: 40 mg Documented By: Admin: 08/23/24 08:23 Dose: 40 mg Documented By: MELISSA Levothyroxine Sodium (Levothyroxine Sodium 75 Mcg Tablet) [facility] Stop: 09/21/24 06:29 Last Admin: 08/25/24 05:25 Dose: 75 mcg Documented By: JOSE M Admin: 08/24/24 07:50 Dose: 75 mcg Documented By: Admin: 08/23/24 06:12 Dose: 75 mcg Documented By: Admin: 08/22/24 06:21 Dose: 75 mcg Documented By: MATTHEW Melatonin (Melatonin 3 Mg Tab) 3 mg PO [facility] Stop: 09/21/24 20:59 Last Admin: 08/24/24 20:13 Dose: 3 mg Documented By: JOSE M Admin: 08/23/24 20:43 Dose: 3 mg Documented By: Admin: 08/22/24 19:41 Dose: 3 mg Documented By: LAITH Metoprolol Succinate (Metoprolol Succ 25mg Ext Rel Tab) 25 mg PO [facility] Stop: 09/21/24 08:59 Last Admin: 08/25/24 08:45 Dose: 25 mg Documented By: Admin: 08/24/24 07:50 Dose: 25 mg Documented By: Admin: 08/23/24 08:25 Dose: 25 mg Documented By: Admin: 08/22/24 07:54 Dose: 25 mg Documented By: DEVIN Pantoprazole Sodium (Pantoprazole 40 Mg Tab) [address] [facility] Stop: 09/21/24 08:59 Last Admin: 08/25/24 08:45 Dose: 40 mg Documented By: Admin: 08/24/24 20:13 Dose: 40 mg Documented By: JOSE M Admin: 08/24/24 07:51 Dose: 40 mg Documented By: Admin: 08/23/24 20:44 Dose: 40 mg Documented By: Admin: 08/23/24 08:25 Dose: 40 mg Documented By: Admin: 08/22/24 19:42 Dose: 40 mg Documented By: Admin: 08/22/24 07:55 Dose: 40 mg Documented By: DEVIN Rosuvastatin Calcium (Rosuvastatin Calcium 10 Mg Tab) 10 mg PO [facility] Stop: 09/21/24 20:59 Last Admin: 08/24/24 20:13 Dose: 10 mg Documented By: JOSE M Admin: 08/23/24 20:44 Dose: 10 mg Documented By: Admin: 08/22/24 19:42 Dose: 10 mg Documented By: LAITH Trazodone HCl (Trazodone Hcl 50 Mg Tab) 50 mg PO [facility] Stop: 09/21/24 20:59 Last Admin: 08/24/24 20:13 Dose: 50 mg Documented By: JOSE M Admin: 08/23/24 20:42 Dose: 50 mg Documented By: Admin: 08/22/24 20:02 Dose: 50 mg Documented By: LAITH
[2024-08-26] MEDS: ONDANSETRON INJ 2 MG/ML 2 ML VIAL IV PRN (09:38)
--- NOTE | 2024-08-26 15:01 | Hospitalist Progress Note ---
Date of Service August 26, 2024 Assessment & Plan (1) Acute on chronic heart failure with preserved ejection fraction: Plan: 85-year-old female with past medical history significant for hypothyroidism, hypercalcemia, hiatal hernia, thoracic aortic ectasia, CKD stage IIIb, heart failure with preserved ejection fraction, CAD, status post CABG, hypertension, chronic atrial fibrillation, mild aortic stenosis, history of CVA, GERD, history of multiple lacunar infarcts, osteoarthrosis, scoliosis of lumbar spine, shoulder arthritis, degenerative disc disease, meningioma, encephalomalacia, depression, insomnia, mixed incontinence of urge and stress, history of gastric ulcers, anxiety, cognitive deficits who lives alone was brought in because of shortness of breath. Patient says when she goes outside she uses walker. Patient recently admitted in July 2024 with shortness of breath and chest pain. Shortness of breath thought to be from recent parainfluenza infection. During her admission office of aging was involved as there was question of patient unsafe to live alone. As per the community health worker home visit today patient seems to be missing appointments. She did not know that she had appointment with PCP today. And patient told that she did not had any food in the house but when community health worker checked in refrigerator and freezer there was plenty of food. CHW when checked she seems to be discharged from [facility] in June. #Decompensated Acute on chronic heart failure with preserved ejection fraction -Came with shortness of breath. Chest x-ray pulmonary congestion. Has mild pedal edema. -improved SOB today Plan: -appreciate cardiology recs -continue PO lasix at this time #Moderate Dementia w/ Anxiety/Agitation -patient has clear cognitive deficits on exam, not remembering what brought her to hospital -has case open with office of aging -patient misses doctors appointments, has history of being very poor historian, concerns about ability to live alone -reinforced by PT/OT with patient having poor safety awareness -5 repeat admissions in last 6 months -MOCA Plan: -discussed with case management, will discuss with Office of Aging regarding next steps on Sunday, clinical concern about ability of patient to take care of self -likely needs guardianship -if needs zyprexa again will consider starting low dose seroquel at bedtime to reduce agitation and promote sleep wake cycle -patient is a safety risk to be discharged home at this time given very poor memory, inability to take care of self, minimal support at home -PT/OT ordered, recommending SNF and assisted living placement -office of aging involved with case #Chronic A-fib -Metoprolol dose was decreased to 25 mg recently because of bradycardia -On Eliquis #Hypothyroidism -On Synthyroid #GERD -On Protonix #Hyperlipidemia -On statin #History of CAD status post CABG -On Plavix, Eliquis, statin and beta-brendan #History of CVA -On Plavix and statin and Eliquis #CKD stage IIIb -Presented with creatinine 1.1 #Hypertension -On amlodipine and metoprolol #Depression #Anxiety -On buspirone and trazodone #Insomnia -On trazodone #Generalized osteoarthritis -On gabapentin and Tylenol as needed I spent a total of 45 minutes in direct patient care, including [id number] time with the patient and/or family, reviewing medical records, ordering and reviewing diagnostic tests, and coordinating care with other healthcare providers. This time includes: history taking, physical examination, medical decision making, counseling, ECG interpretation, imaging interpretation, lab interpretation, orders, and education, excluding time spent in the performance of separately billed services. Admission and Anticipated Discharge Date Admission Date: August 21, 2024 Subjective Patient seen and examined at bedside. Patient doing ok this morning. No concerns at this time. Review of Systems Review of Systems: CONSTITUTIONAL: Patient denies fevers, chills, sweats and weight changes. EYES: Patient denies any visual symptoms. EARS, NOSE, AND THROAT: No difficulties with hearing. No symptoms of rhinitis or sore throat. CARDIOVASCULAR: Patient denies chest pains, palpitations, orthopnea and paroxysmal nocturnal dyspnea. RESPIRATORY: SOB GI: No nausea, vomiting, diarrhea, constipation, abdominal pain, hematochezia or melena. : No urinary hesitancy or dribbling. No nocturia or urinary frequency. No abnormal urethral discharge. MUSCULOSKELETAL: No myalgias or arthralgias. NEUROLOGIC: No chronic headaches, no seizures. Patient denies numbness, tingling or weakness. PSYCHIATRIC: Patient denies problems with mood disturbance. No problems with anxiety. ENDOCRINE: No excessive urination or excessive thirst. DERMATOLOGIC: Patient denies any rashes or skin changes. Physical Exam Physical Exam: Gen: A&O 2-3 NAD HEENT: NCAT, EOMI, not icteric. External ears normal. No rhinorrhea. Moist mucous membranes. Neck: Supple, full range of motion, no observable masses, No meningeal sign. Lungs: trace rhonchi in bilateral lower lobes worse on right CV: RRR, no edema. Abdomen: Soft, nondistended, No rebound tenderness. MSK: No joint swelling, no redness. Skin: No rashes, petechiae, lesions. Normal color per patient. Neuro: Normal Gait, Grossly intact. Results & Data Results & Data Vital Signs (Past 12 Hours) Vital Signs Temp Pulse Resp BP Pulse Ox O2 Del Method 08/26/24 14:56 36.6 C 80 18 150/78 H 93 Room Air Medications Administered Acetaminophen (Acetaminophen 325 Mg Tab) 650 mg PO Q4H PRN PRN Reason: Pain or Fever Stop: 09/21/24 01:34 Last Admin: 08/23/24 21:48 Dose: 650 mg Documented By: NEELAM Amlodipine Besylate (Amlodipine Besylate 5 Mg Tab) 5 mg PO [facility] Stop: 09/21/24 08:59 Last Admin: 08/26/24 07:52 Dose: 5 mg Documented By: Admin: 08/25/24 08:44 Dose: 5 mg Documented By: Admin: 08/24/24 07:50 Dose: 5 mg Documented By: Admin: 08/23/24 08:26 Dose: 5 mg Documented By: Admin: 08/22/24 07:54 Dose: 5 mg Documented By: DEVIN Apixaban (Apixaban 2.5 Mg Tab) 2.5 mg PO BID [facility] Stop: 09/21/24 08:59 Last Admin: 08/26/24 07:52 Dose: 2.5 mg Documented By: Admin: 08/25/24 21:52 Dose: 2.5 mg Documented By: JOSE M Admin: 08/25/24 08:45 Dose: 2.5 mg Documented By: Admin: 08/24/24 20:13 Dose: 2.5 mg Documented By: JOSE M Admin: 08/24/24 07:51 Dose: 2.5 mg Documented By: Admin: 08/23/24 20:43 Dose: 2.5 mg Documented By: Admin: 08/23/24 08:24 Dose: 2.5 mg Documented By: Admin: 08/22/24 19:41 Dose: 2.5 mg Documented By: Admin: 08/22/24 07:55 Dose: 2.5 mg Documented By: DEVIN Buspirone HCl (Buspirone 5 Mg Tab) 5 mg PO [facility] Stop: 09/22/24 20:59 Last Admin: 08/26/24 13:43 Dose: 5 mg Documented By: Admin: 08/26/24 07:51 Dose: 5 mg Documented By: Admin: 08/25/24 21:52 Dose: 5 mg Documented By: JOSE M Admin: 08/25/24 14:17 Dose: 5 mg Documented By: Admin: 08/25/24 08:45 Dose: 5 mg Documented By: Admin: 08/24/24 20:13 Dose: 5 mg Documented By: JOSE M Admin: 08/24/24 13:25 Dose: 5 mg Documented By: Admin: 08/24/24 07:49 Dose: 5 mg Documented By: Admin: 08/23/24 20:42 Dose: 5 mg Documented By: NEELAM Calcitriol (Calcitriol 0.25 Mcg Capsule) 0.25 mcg PO MoWeFr@0900 [facility] Stop: 09/21/24 08:59 Last Admin: 08/25/24 08:44 Dose: 0.25 mcg Documented By: Admin: 08/22/24 07:54 Dose: 0.25 mcg Documented By: DEVIN Clopidogrel Bisulfate (Clopidogrel Bisulfate 75 Mg Tab) 75 mg PO QA [facility] Stop: 09/21/24 08:59 Last Admin: 08/26/24 07:51 Dose: 75 mg Documented By: Admin: 08/25/24 08:45 Dose: 75 mg Documented By: Admin: 08/24/24 07:50 Dose: 75 mg Documented By: Admin: 08/23/24 08:24 Dose: 75 mg Documented By: Admin: 08/22/24 07:54 Dose: 75 mg Documented By: DEVIN Empagliflozin (Empagliflozin 10 Mg Tab) 10 mg PO DAILY [facility] Stop: 09/21/24 12:29 Last Admin: 08/26/24 07:51 Dose: 10 mg Documented By: Admin: 08/25/24 08:45 Dose: 10 mg Documented By: Admin: 08/24/24 07:50 Dose: 10 mg Documented By: Admin: 08/23/24 08:23 Dose: 10 mg Documented By: Admin: 08/22/24 13:33 Dose: 10 mg Documented By: DEVIN Furosemide (Furosemide 40 Mg Tab) [facility] [place] [place] Stop: 09/22/24 08:59 Last Admin: 08/26/24 07:52 Dose: 40 mg Documented By: Admin: 08/25/24 08:44 Dose: 40 mg Documented By: Admin: 08/24/24 08:21 Dose: 40 mg Documented By: Admin: 08/23/24 08:23 Dose: 40 mg Documented By: MELISSA Levothyroxine Sodium (Levothyroxine Sodium 75 Mcg Tablet) 75 mcg PO [facility] Stop: 09/21/24 06:29 Last Admin: 08/26/24 04:29 Dose: 75 mcg Documented By: JOSE M Admin: 08/25/24 05:25 Dose: 75 mcg Documented By: JOSE M Admin: 08/24/24 07:50 Dose: 75 mcg Documented By: Admin: 08/23/24 06:12 Dose: 75 mcg Documented By: Admin: 08/22/24 06:21 Dose: 75 mcg Documented By: MATTHEW Melatonin (Melatonin 3 Mg Tab) 3 mg PO [facility] Stop: 09/21/24 20:59 Last Admin: 08/25/24 21:52 Dose: 3 mg Documented By: JOSE M Admin: 08/24/24 20:13 Dose: 3 mg Documented By: JOSE M Admin: 08/23/24 20:43 Dose: 3 mg Documented By: Admin: 08/22/24 19:41 Dose: 3 mg Documented By: LAITH Metoprolol Succinate (Metoprolol Succ 25mg Ext Rel Tab) 25 mg PO [facility] Stop: 09/21/24 08:59 Last Admin: 08/26/24 07:51 Dose: 25 mg Documented By: Admin: 08/25/24 08:45 Dose: 25 mg Documented By: Admin: 08/24/24 07:50 Dose: 25 mg Documented By: Admin: 08/23/24 08:25 Dose: 25 mg Documented By: Admin: 08/22/24 07:54 Dose: 25 mg Documented By: GPF Ondansetron HCl (Ondansetron Inj 2 Mg/Ml 2 Ml Vial) 4 mg IV Q6H PRN PRN Reason: Nausea And Vomiting Stop: 09/21/24 10:03 Last Admin: 08/26/24 09:38 Dose: 4 mg Documented By: LOBITO Pantoprazole Sodium (Pantoprazole 40 Mg Tab) 40 mg PO [facility] Stop: 09/21/24 08:59 Last Admin: 08/26/24 07:51 Dose: 40 mg Documented By: Admin: 08/25/24 21:52 Dose: 40 mg Documented By: JOSE M Admin: 08/25/24 08:45 Dose: 40 mg Documented By: Admin: 08/24/24 20:13 Dose: 40 mg Documented By: JOSE M Admin: 08/24/24 07:51 Dose: 40 mg Documented By: Admin: 08/23/24 20:44 Dose: 40 mg Documented By: Admin: 08/23/24 08:25 Dose: 40 mg Documented By: Admin: 08/22/24 19:42 Dose: 40 mg Documented By: Admin: 08/22/24 07:55 Dose: 40 mg Documented By: DEVIN Rosuvastatin Calcium (Rosuvastatin Calcium 10 Mg Tab) 10 mg PO [facility] Stop: 09/21/24 20:59 Last Admin: 08/25/24 21:52 Dose: 10 mg Documented By: JOSE M Admin: 08/24/24 20:13 Dose: 10 mg Documented By: JOSE M Admin: 08/23/24 20:44 Dose: 10 mg Documented By: Admin: 08/22/24 19:42 Dose: 10 mg Documented By: LAITH Trazodone HCl (Trazodone Hcl 50 Mg Tab) 50 mg PO [facility] Stop: 09/21/24 20:59 Last Admin: 08/25/24 21:52 Dose: 50 mg Documented By: JOSE M Admin: 08/24/24 20:13 Dose: 50 mg Documented By: JOSE M Admin: 08/23/24 20:42 Dose: 50 mg Documented By: Admin: 08/22/24 20:02 Dose: 50 mg Documented By: LAITH
[2024-08-26] MEDS: ZOLPIDEM TARTRATE 5 MG TAB PO STA (23:10)
--- NOTE | 2024-08-27 12:16 | Hospitalist Progress Note ---
Date of Service August 27, 2024 Assessment & Plan (1) Acute on chronic heart failure with preserved ejection fraction: (2) Generalized anxiety disorder: (3) Alzheimer's dementia with anxiety: (4) Hypertension, uncontrolled: (5) Chronic atrial fibrillation: (6) Acute renal failure superimposed on stage 3 chronic kidney disease: (7) Hypothyroidism: Plan Patient with acute on chronic congestive heart failure with preserved ejection fraction now back in compensated state. Highly suspicious that patient's condition is due to memory issues failure to potentially take medications as prescribed. Failure to follow-up with appointments. Patient has continued to show progressive cognitive deficits and this has been shown over repeated hospitalizations over the past few months. Patient's acute kidney injury returning to baseline, continue to monitor intermittently Continue oral medications Continue therapies Communication with case management. She reports that patient has a brother who may be willing to sign papers for dementia unit which would be the most appropriate place to care for her. Also patient apparently has a patient scheduling coordinator, unclear if power of senior java ui developer paperwork has been established. And will be checking in with them. If these 2 leads do not work out then potentially will need to pursue guardianship. I explained to the patient that she would not be able to return to her usual place of living. And that we are looking for alternate places of care for her. She was quite insistent that she returns to her usual home. She is quite insistent that she can drive and take care of herself. Based on her memory scoring this is not the case. Continue other medications as prescribed Attempted to contact patient's brother via phone, no answer Admission and Anticipated Discharge Date Admission Date: August 21, 2024 Subjective Patient denies any new shortness of breath. Readily admits that it waxes and wanes with her anxiety levels Physical Exam Physical Exam: Constitutional: Alert, nontoxic HEENT: Mucous membranes moist. Lungs: Decreased, chronic crackles at bases CV: S1-S2, irregular, systolic murmur Abdomen: Soft, nontender, nondistended Extremities: No significant edema Neuro: No focal deficits Psych: Cooperative, impaired memory and cognition Results & Data Results & Data Vital Signs (Past 12 Hours) Vital Signs Temp Pulse Resp BP Pulse Ox Pulse Ox O2 Del Method 08/27/24 10:58 Room Air 08/27/24 09:00 95 08/27/24 08:40 36.7 C 70 18 110/70 97 Room Air O2 Del Method 08/27/24 10:58 08/27/24 09:00 Room Air 08/27/24 08:40 Diagnostic Findings Reviewed imaging, laboratory and diagnostic studies. Pertinent findings as below. (7) Hypothyroidism Hypothyroidism type: unspecified Qualified Code(s): E03.9 - Hypothyroidism, unspecified
[2024-08-27] MEDS: ZOLPIDEM TARTRATE 5 MG TAB PO STA (21:53)
[2024-08-28] MEDS: MELATONIN 3 MG TAB PO STA (02:35)
[2024-08-28 07:25] LABS: Anion Gap 7.0 (3-11); Blood Urea Nitrogen 35.0 mg/dl (6-23); Calcium 9.9 mg/dl (8.6-10.3); Carbon Dioxide 29.0 mmol/L (21-32); Chloride 103.0 mmol/L (98-107); Creatinine Clr Calc Pharmacy 20.3 ml/min; Glucose 92.0 mg/dl (70-99(Fasting)); Potassium 3.7 mmol/L (3.5-5.1); Sodium 139.0 mmol/L (136-145)
--- NOTE | 2024-08-28 12:43 | Hospitalist Progress Note ---
Date of Service August 28, 2024 Assessment & Plan (1) Acute on chronic heart failure with preserved ejection fraction: (2) Generalized anxiety disorder: (3) Alzheimer's dementia with anxiety: Plan: With significant short-term memory deficits (4) Hypertension, uncontrolled: (5) Chronic atrial fibrillation: (6) Acute renal failure superimposed on stage 3 chronic kidney disease: (7) Hypothyroidism: (8) Sleep-wake cycle disorder: Plan Patient with recurrent hospitalizations due to decompensated CHF. All medical issues essentially stable at this point. However she has significant memory issues where after now multiple hospitalizations determined that the patient really forgets to take medications, forgets to go to office appointments. May not remember to eat or drink, etc. Due to these memory issues patient really unsafe to return home and live independently, will only lead to recurrent hospitalizations as has already been documented over the past several months. Renal function slightly worse today, suspect this is due to the fact that she is now consistently getting her Lasix. Will hold Lasix today. Anticipate will be able to be resumed at a lower dose tomorrow Communication with case management, they were able to speak with a host/hostess ground. No power of dairy science teacher identified. There apparently is a nephew who may be willing to sign paperwork. There is no phone number or name available for the nephew yet at this time. Office of aging is also involved. They will be coming to make an assessment at some point. Ultimately suspect will have to pursue guardianship through the office of aging and eventually pursue placement either at dementia unit or intermediate facility. Suspect patient having a sleep-wake cycle disturbance in the setting of dementia which is quite common. Would like to avoid the use of Ambien if at all possible. Increase melatonin dose, increase trazodone dose Note: To highlight the patient's poor memory. We initially started the conversation with her stating that she had attempted to contact her brother several times yesterday and was not able to speak with him at all. Approximately 10 minutes later patient states that she spoke with her brother yesterday he was having back issues and may not be available. I suspect that she did not speak with him yesterday due to the fact that I had called him and case management had called him multiple times and he never answered his phone. Admission and Anticipated Discharge Date Admission Date: August 21, 2024 Subjective No acute issues overnight. However patient does have significant issues with sleep. Ambien was prescribed last night one-time dose. Patient denies any complaints. Patient is quite certain that she can take care of herself at home. Physical Exam Physical Exam: Constitutional: Alert, nontoxic HEENT: Mucous membranes moist. Lungs: Clear to auscultation, decreased, no wheezes rales or rhonchi CV: S1-S2, regular, systolic murmur Abdomen: Soft, nontender, nondistended Extremities: No significant edema, skin loose and wrinkled Neuro: No focal deficits Psych: Cooperative, anxious about her care. Impaired memory. Impaired decision-making Results & Data Results & Data Vital Signs (Past 12 Hours) Vital Signs Temp Pulse Resp BP Pulse Ox Pulse Ox O2 Del Method 08/28/24 09:15 95 08/28/24 07:59 36.9 C 84 18 132/81 94 Room Air O2 Del Method 08/28/24 09:15 Room Air 08/28/24 07:59 Diagnostic Findings Reviewed imaging, laboratory and diagnostic studies. Pertinent findings as below. Creatinine 1.75, slightly increased BUN 35 (7) Hypothyroidism Hypothyroidism type: unspecified Qualified Code(s): E03.9 - Hypothyroidism, unspecified
[2024-08-28] MEDS: MELATONIN 3 MG TAB PO SCH (22:27)
[2024-08-29] MEDS: FUROSEMIDE 20 MG TAB PO SCH (07:51)
[2024-08-29 09:02] LABS: Anion Gap 6.0 (3-11); Blood Urea Nitrogen 30.0 mg/dl (6-23); Calcium 10.1 mg/dl (8.6-10.3); Carbon Dioxide 28.0 mmol/L (21-32); Chloride 104.0 mmol/L (98-107); Creatinine Clr Calc Pharmacy 24.1 ml/min; Glucose 98.0 mg/dl (70-99(Fasting)); Potassium 3.7 mmol/L (3.5-5.1); Sodium 138.0 mmol/L (136-145)
--- NOTE | 2024-08-29 12:41 | Hospitalist Progress Note ---
Date of Service August 29, 2024 Assessment & Plan (1) Acute on chronic heart failure with preserved ejection fraction: (2) Generalized anxiety disorder: (3) Alzheimer's dementia with anxiety: Plan: With significant short-term memory deficits (4) Hypertension, uncontrolled: (5) Chronic atrial fibrillation: (6) Acute renal failure superimposed on stage 3 chronic kidney disease: (7) Hypothyroidism: (8) Sleep-wake cycle disorder: Plan 85-year-old woman with PMH of hypothyroidism, hypercalcemia, hiatal hernia, thoracic aortic ectasia, CKD stage IIIb,HFpEF, CAD, s/p CABG, HTN, chronic AF, mild aortic stenosis, history of CVA, GERD, history of multiple lacunar infarcts, osteoarthrosis, scoliosis of lumbar spine, shoulder arthritis, degenerative disc disease, meningioma, encephalomalacia, depression, insomnia, mixed incontinence of urge and stress, history of gastric ulcers, anxiety, cognitive deficits who lives alone was brought in because of shortness of breath. Per Chart review, she has significant memory issues, multiple hospitalizations and determined that she forgets to take medications and office appointments. Decompensated Acute on chronic heart failure with preserved ejection fraction Chest x-ray pulmonary congestion. Has mild pedal edema. Cards eval noted Managed with diuretics Lasix currently at 20mg daily Continue jardiance Moderate Dementia with agitation Stable Per chart review, she has cognitive impairment and concern for unsafe at home CM working with [facility] and patient regarding safe dispo and placement Chronic A-fib Metoprolol dose was decreased to 25 mg recently because of bradycardia Continue Eliquis Hypothyroidism On Synthyroid GERD On Protonix Hyperlipidemia On statin History of CAD status post CABG History of CVA On Plavix and statin and Eliquis CKD stage IIIb Presented with creatinine 1.1 Cr is 1.5 today. Monitor Hypertension On amlodipine and metoprolol Depression Anxiety On buspirone and trazodone Insomnia On trazodone Generalized osteoarthritis On Tylenol as needed DVT ppx- eliquis Code- Full code I spent a total of 40 minutes coordinating, documenting and providing care for this patient excluding time spent in performance of separately billed services Admission and Anticipated Discharge Date Admission Date: August 21, 2024 Subjective Patient seen and examined No new complaints todady Physical Exam Constitutional: + well hydrated; no acute distress Eyes: PERRL, conjunctivae normal, anicteric sclerae ENMT: external ear and nose normal, oropharynx normal Respiratory: normal respiratory effort, lungs clear to auscultation Cardiovascular: Rate/Rhythm: regular rate and regular rhythm Gastrointestinal (Abdomen): normal bowel sounds, soft, nontender, no hepatosplenomegaly Musculoskeletal: No pedal edema Neurologic: PERRL, EOMI, accommodation nl, no face palsy, no dysarthria Psychiatric: A+Ox3, euthymic affect Results & Data Results & Data Vital Signs (Past 12 Hours) Vital Signs Temp Pulse Resp BP Pulse Ox O2 Del Method 08/29/24 07:50 36.7 C 69 18 133/79 97 Room Air Laboratory Results Abnormal lab results 08/29/24 Range/Units 07:43 BUN 30 H (6-23) mg/dl Creatinine 1.50 H (0.6-1.2) mg/dl (7) Hypothyroidism Hypothyroidism type: unspecified Qualified Code(s): E03.9 - Hypothyroidism, unspecified
[2024-08-29] MEDS ORDERED: NYSTATIN POWDER 15GM BTL EXT PRN (13:31)
[2024-08-30 06:26] LABS: Hematocrit (blood only) 38.0 % (37.0-47.0); Hemoglobin 12.5 g/dl (12.0-16.0); Mean Corpuscular Hemoglobin 29.8 pg (25.0-34.0); Mean Corpuscular Volume 90.5 fL (80.0-100.0); Platelet Count 162 K/uL (130-400); RDW Standard Deviation 47.9 fL (36.4-46.3); Red Blood Count 4.20 M/uL (4.20-5.40); White Blood Count 5.96 K/ul (4.8-10.8)
[2024-08-30 06:43] LABS: Anion Gap 6.0 (3-11); Blood Urea Nitrogen 36.0 mg/dl (6-23); Calcium 10.1 mg/dl (8.6-10.3); Carbon Dioxide 28.0 mmol/L (21-32); Chloride 104.0 mmol/L (98-107); Creatinine Clr Calc Pharmacy 21.3 ml/min; Glucose 98.0 mg/dl (70-99(Fasting)); Potassium 3.8 mmol/L (3.5-5.1); Sodium 138.0 mmol/L (136-145)
--- NOTE | 2024-08-30 14:58 | Hospitalist Progress Note ---
Date of Service August 30, 2024 Assessment & Plan (1) Acute on chronic heart failure with preserved ejection fraction: (2) Generalized anxiety disorder: (3) Alzheimer's dementia with anxiety: Plan: With significant short-term memory deficits (4) Hypertension, uncontrolled: (5) Chronic atrial fibrillation: (6) Acute renal failure superimposed on stage 3 chronic kidney disease: (7) Hypothyroidism: (8) Sleep-wake cycle disorder: Plan 85-year-old woman with PMH of hypothyroidism, hypercalcemia, hiatal hernia, thoracic aortic ectasia, CKD stage IIIb,HFpEF, CAD, s/p CABG, HTN, chronic AF, mild aortic stenosis, history of CVA, GERD, history of multiple lacunar infarcts, osteoarthrosis, scoliosis of lumbar spine, shoulder arthritis, degenerative disc disease, meningioma, encephalomalacia, depression, insomnia, mixed incontinence of urge and stress, history of gastric ulcers, anxiety, cognitive deficits who lives alone was brought in because of shortness of breath. Per Chart review, she has significant memory issues, multiple hospitalizations and determined that she forgets to take medications and office appointments. Decompensated Acute on chronic heart failure with preserved ejection fraction Chest x-ray pulmonary congestion. Has mild pedal edema. Cards eval noted Managed with diuretics Lasix currently at 20mg daily Continue jardiance Moderate Dementia with agitation Stable Per chart review, she has cognitive impairment and concern for unsafe at home CM working with [facility] and patient regarding safe dispo and placement Chronic A-fib Metoprolol dose was decreased to 25 mg recently because of bradycardia Continue Eliquis Hypothyroidism On Synthyroid GERD On Protonix Hyperlipidemia On statin History of CAD status post CABG History of CVA On Plavix and statin and Eliquis CKD stage IIIb Presented with creatinine 1.1 Cr is 1.5 today. Monitor Hypertension On amlodipine and metoprolol Depression Anxiety On buspirone and trazodone Insomnia On trazodone Generalized osteoarthritis On Tylenol as needed DVT ppx- eliquis Code- Full code Admission and Anticipated Discharge Date Admission Date: August 21, 2024 Subjective Patient seen and examined at bedside. No new complaints today, pt reports eating ok and moving bowels ok. Physical Exam Physical Exam: Constitutional: + well hydrated; no acute distress Eyes: PERRL, conjunctiva e normal, anicteri c sclerae ENMT: external ear and n ose normal, oropha rynx normal Respiratory: normal respiratory effort, lungs anayeli ar to auscultation Cardiovascular: Rate/Rhythm: regul ar rate and regula r rhythm Gastrointestinal ( Abdomen): normal bowel sound s, soft, nontender , no hepatosplenom egaly Musculoskeletal: No pedal edema Neurologic: PERRL, EOMI, accom modation nl, no fa ce palsy, no dysar thria Psychiatric: A+Ox3, euthymic af fect Results & Data Results & Data Vital Signs (Past 12 Hours) Vital Signs Temp Pulse Resp BP Pulse Ox O2 Del Method 08/30/24 07:55 36.6 C 78 16 161/88 H 99 Room Air (7) Hypothyroidism Hypothyroidism type: unspecified Qualified Code(s): E03.9 - Hypothyroidism, unspecified
[2024-08-31 06:44] LABS: Anion Gap 7.0 (3-11); Blood Urea Nitrogen 34.0 mg/dl (6-23); Calcium 9.9 mg/dl (8.6-10.3); Carbon Dioxide 28.0 mmol/L (21-32); Chloride 103.0 mmol/L (98-107); Creatinine Clr Calc Pharmacy 24.8 ml/min; Glucose 99.0 mg/dl (70-99(Fasting)); Magnesium 2.2 mg/dl (1.7-2.4); Potassium 3.6 mmol/L (3.5-5.1); Sodium 138.0 mmol/L (136-145)
--- NOTE | 2024-08-31 12:28 | Hospitalist Progress Note ---
Date of Service August 31, 2024 Assessment & Plan (1) Acute on chronic heart failure with preserved ejection fraction: (2) Generalized anxiety disorder: (3) Alzheimer's dementia with anxiety: Plan: With significant short-term memory deficits (4) Hypertension, uncontrolled: (5) Chronic atrial fibrillation: (6) Acute renal failure superimposed on stage 3 chronic kidney disease: (7) Hypothyroidism: (8) Sleep-wake cycle disorder: Plan 85-year-old woman with PMH of hypothyroidism, hypercalcemia, hiatal hernia, thoracic aortic ectasia, CKD stage IIIb,HFpEF, CAD, s/p CABG, HTN, chronic AF, mild aortic stenosis, history of CVA, GERD, history of multiple lacunar infarcts, osteoarthrosis, scoliosis of lumbar spine, shoulder arthritis, degenerative disc disease, meningioma, encephalomalacia, depression, insomnia, mixed incontinence of urge and stress, history of gastric ulcers, anxiety, cognitive deficits who lives alone was brought in because of shortness of breath. Per Chart review, she has significant memory issues, multiple hospitalizations and determined that she forgets to take medications and office appointments. Decompensated Acute on chronic heart failure with preserved ejection fraction Chest x-ray pulmonary congestion. Has mild pedal edema. Cards eval noted Managed with diuretics Lasix currently at 20mg daily Continue jardiance Moderate Dementia with agitation Stable Per chart review, she has cognitive impairment and concern for unsafe at home CM working with [facility] and patient regarding safe dispo and placement Chronic A-fib Metoprolol dose was decreased to 25 mg recently because of bradycardia Continue Eliquis Hypothyroidism On Synthyroid GERD On Protonix Hyperlipidemia On statin History of CAD status post CABG History of CVA On Plavix and statin and Eliquis CKD stage IIIb Presented with creatinine 1.1 Cr is 1.5 today. Monitor Hypertension On amlodipine and metoprolol Depression Anxiety On buspirone and trazodone Insomnia On trazodone Generalized osteoarthritis On Tylenol as needed DVT ppx- eliquis Code- Full code CM assisting w/ dispo plan. Admission and Anticipated Discharge Date Admission Date: August 21, 2024 Subjective Patient seen and examined at bedside. No new complaints today, pt reports eating ok and moving bowels ok. Physical Exam Physical Exam: Constitutional: + well hydrated; no acute distress Eyes: PERRL, conjunctiva e normal, anicteri c sclerae ENMT: external ear and n ose normal, oropha rynx normal Respiratory: normal respiratory effort, lungs anayeli ar to auscultation Cardiovascular: Rate/Rhythm: regul ar rate and regula r rhythm Gastrointestinal ( Abdomen): normal bowel sound s, soft, nontender , no hepatosplenom egaly Musculoskeletal: No pedal edema Neurologic: PERRL, EOMI, accom modation nl, no fa ce palsy, no dysar thria Psychiatric: A+Ox3, euthymic af fect Results & Data Results & Data Vital Signs (Past 12 Hours) Vital Signs Temp Pulse Resp BP Pulse Ox O2 Del Method 08/31/24 07:57 36.7 C 71 18 148/88 H 94 Room Air (7) Hypothyroidism Hypothyroidism type: unspecified Qualified Code(s): E03.9 - Hypothyroidism, unspecified
--- NOTE | 2024-08-31 18:29 | CT Scan Report ---
EXAMINATION: Head CT without CLINICAL HISTORY: Left eye blurry, rule out stroke PRIORS: 03/18/2024 TECHNIQUE: Contiguous axial images were obtained through the head without the use of intravenous contrast. Sagittal and coronal reformations are supplied. FINDINGS: Mild parenchymal volume loss noted with small vessel occlusive disease briseno-white differentiation is preserved. No edema or midline shift. No intra-axial or extra-axial hemorrhage. Ventricles are normal in size and configuration. Brainstem and cerebellum have a normal appearance. Calvarium unremarkable. Paranasal sinuses and mastoid air cells are well-pneumatized. Globes are intact. No retrobulbar abnormality. IMPRESSION: No CT evidence of an acute intracranial abnormality. If clinical concern warrants, brain MRI could be considered if appropriate. Electronically signed by Katherine Abraham 08-31-2024 6:28 PM
--- NOTE | 2024-09-01 11:42 | Neurology Consultation ---
Date of Consultation September 01, 2024 Assessment & Plan (1) Stroke-like symptoms: Recommend continued stroke work up to include the following: MRI brain without contrast CTA head & neck Continue frequent neurological assessments Obtain stat CT brain without contrast for any acute neurological decline Continue to monitor/control blood pressure & blood glucose Continue to monitor telemetry closely Continue to monitor renal and hepatic function, keep euvolemic Metabolic workup should include hgbA1c, fasting lipids Agree with continued full anticoagulation and clopidogrel Recommend continue to monitor closely for s/s of hemorrhage Recommend increase dose of rosuvastatin to 20mg PO daily with goal of 40mg PO daily Ok from neurology perspective for VTE prophylaxis PT/OT/SLT to eval and treat Recommend eval for TAM and consider outpatient polysomnography Telehealth Consultation Telehealth Information Telehealth Information: I performed this visit using a real-time telehealth connection between my locati on and the patients location ([facility]). After connecting through interactive tele-video, patient was identified by name and date of and/or wristband check.Patient (or authorized healthcare office machines sales representative) was informed that this was a telemedicine visit and it was being conducted confidentially over secure lines. My office door was closed and no one else was present in the room with me.Patient (or authorized healthcare office machines sales representative) provided consent to proceed with the visit, expressed an understanding of privacy and security of the telemedicine visit, and gave permission to have a hospital office machines sales representative in the room in order to assist with the visit and to conduct portions of the visit, as needed. I informed the patient (or authorized healthcare office machines sales representative) that I reviewed their record and presented the opportunity for them to ask any questions regarding the visit today. The patient agreed to participate. History of Present Illness Reason for Consultation: Stroke like symptoms Requesting Physician: Dr Mendoza Attending Physician: Catalina Mendoza MD History of Present Illness 85yo right handed female with significant past medical hx including HFpEF for which she has been hospitalized since 08/21 and notably is undergoing further evaluation for placement as apparently she is unable to care for herself at home alone. She also suffers from chronic AFIB for which she is fully anticoagulated. She has a hx of CAD, HTN, CKD and hyperlipidemia. Yesterday she reportedly had some vision changes in her left eye prompting neurological consultation for concern of possible stroke. I have performed televideo consultation. She is fluent and able to name objects on televideo monitor, repeat phrases and perform simple commands without deficit. Neurological exam is non lateralizing/nonfocal in terms of motor strength and coordination. She currently denies changes in vision, denies changes in vision yesterday as well and reports she came to ER yesterday and does not know why she is still here. She is pending CTA head & neck and MRI to eval/rule out stroke. Allergies Allergy/AdvReac Type Severity Reaction Status Date / Time nitroglycerin AdvReac Severe "PROJECTILE Verified 07/16/24 18:45 VOMITTING" ergotamine AdvReac Intermediate vomiting Verified 07/16/24 18:45 Home Medications Medication Instructions Recorded Confirmed Type amlodipine 5 mg tablet (Norvasc) 5 mg PO QAM #30 tabs 05/21/24 08/21/24 Rx apixaban 2.5 mg tablet (Eliquis) 2.5 mg PO BID #60 tabs 05/21/24 08/21/24 Rx levothyroxine 75 mcg tablet 75 mcg PO DAILYBB #30 tabs 05/21/24 08/21/24 Rx (Synthroid) melatonin 10 mg capsule 10 mg PO HS #30 caps 05/21/24 08/21/24 Rx metoprolol succinate 25 mg 25 mg PO QAM #30 tabs 05/21/24 08/21/24 Rx tablet,extended release 24 hr calcitriol 0.25 mcg capsule 0.25 mcg PO 3XWK 07/16/24 08/21/24 History ferrous fumarate 324 mg (106 mg 324 mg PO QAM 07/16/24 08/21/24 History iron) tablet pantoprazole 40 mg tablet,delayed 40 mg PO AMHS 07/16/24 08/21/24 History release rosuvastatin 10 mg tablet 10 mg PO HS 07/16/24 08/21/24 History trazodone 50 mg tablet 50 mg PO HS 07/16/24 08/21/24 History hydroxyzine HCl 10 mg tablet 10 mg PO TID PRN Anxiety 07/25/24 08/21/24 History acetaminophen 500 mg tablet 500 mg PO TID PRN Pain 08/21/24 08/21/24 History buspirone 15 mg tablet 15 mg PO AMHS 08/21/24 08/21/24 History clopidogrel 75 mg tablet 75 mg PO QAM 08/21/24 08/21/24 History gabapentin 100 mg capsule 100 mg PO AMHS 08/21/24 08/21/24 History loperamide 2 mg capsule 2 mg PO QID PRN Diarrhea 08/21/24 08/21/24 History Patient History Medical History Mobitz type 1 second degree AV block (10/2023) Somatic dysfunction of sacroiliac joint History of blood transfusion 03/23 GASTRIC ULCER History of gastric ulcer 2012 Spinal stenosis Gastric ulcer Atrial fibrillation with rapid ventricular response (11/2022) Fall Moderate mitral regurgitation Transient ischemic attack (TIA) ~2012>REASON FOR PLAVIX Osteoarthritis Chronic back pain Dyslipidemia Chronic kidney disease stage 3 Hypertension Surgical History 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 History of cardiac cath NO STENTS History of coronary artery bypass graft 1998 (1 VESSEL) S/P epidural steroid injection History of esophagogastroduodenoscopy (EGD) S/p reverse total shoulder arthroplasty RT/LEFT History of abdominoplasty PANNICULECTOMY History of colonoscopy History of arthroplasty of right hip History of arthroplasty of left hip History of hysterectomy with oophorectomy History of arthroplasty of left shoulder History of tonsillectomy and adenoidectomy H/O bilateral salpingo-oophorectomy with hyter Family History Father , age 74 Allergic reaction Mother , 80s CHF (congestive heart failure) Other No family history of adverse response to anesthesia Social History Smoking Status: Never smoker Second Hand Exposure: No; Do You Dip or Chew Tobacco: No; Tobacco Cessation Education Requested by Patient: No Hx Alcohol Use: No Hx Substance Use: No Preferred Language: Italian Communication Ability: Effective Visual Impairment: No Limitations Foundation Assistant Required: No Beliefs That Will Affect Care: None marital status: Single Current Living Situation: Alone Current Living Situation Comment: [facility] How many Children do You have: 0 Other Information That Helps Us Care for You: No Feels Safe at Home: Yes Safety Concerns: Feels Safe At This Time Assistive Devices: Walker Physical Exam Neurological Examination: Mental Status: Awake, speech is fluent Able to name objects and follow simple commands Alert to self Affect remains appropriate. CN testing: I: Deferred II: Reports no changes in visual acuity III/IV/: No evidence of gaze preference, hippus, nystagmus or roving eye movements V: Facial sensation reportedly grossly intact to light touch bilaterally VII: Facial movements appear without evidence of asymmetry VIII: Hearing appears grossly intact to loud voice bilaterally IX/X: Palate is unable to be accurately visualized XI: Shoulder shrug appears symmetric/ grossly intact bilaterally XII: Tongue protrudes midline without evidence of biting Motor exam: Strength appears grossly intact in all extremities Tone: Unable to accurately assess via telemedicine Sensory: Sensation is reportedly grossly intact throughout Coordination:No apparent evidence of dysmetria or dysdiadochokinesia Reflexes: Unable to accurately assess via telemedicine Gait: Deferred Results & Data Vital Signs (Past 12 Hours) Vital Signs Temp Pulse Pulse Resp BP Pulse Ox O2 Del Method 09/01/24 08:22 36.4 C L 79 20 132/71 97 Room Air 09/01/24 08:00 59 L Laboratory Results Abnormal lab results 08/31/24 Range/Units 13:05 POC Glucose 184 H (70-99) mg/dl Diagnostic Findings Head CT 08/31/24 16:36 EXAMINATION: Head CT without CLINICAL HISTORY: Left eye blurry, rule out stroke PRIORS: 03/18/2024 TECHNIQUE: Contiguous axial images were obtained through the head without the use of intravenous contrast. Sagittal and coronal reformations are supplied. FINDINGS: Mild parenchymal volume loss noted with small vessel occlusive disease briseno-white differentiation is preserved. No edema or midline shift. No intra-axial or extra-axial hemorrhage. Ventricles are normal in size and configuration. Brainstem and cerebellum have a normal appearance. Calvarium unremarkable. Paranasal sinuses and mastoid air cells are well-pneumatized. Globes are intact. No retrobulbar abnormality. IMPRESSION: No CT evidence of an acute intracranial abnormality. If clinical concern warrants, brain MRI could be considered if appropriate. Electronically signed by Katherine Abraham 08-31-2024 6:28 PM Medications Administered Home Medications Medication Instructions Recorded Confirmed Last Taken amlodipine 5 mg tablet (Norvasc) 5 mg PO QAM #30 tabs 05/21/24 08/21/24 08/20/24 apixaban 2.5 mg tablet (Eliquis) 2.5 mg PO BID #60 tabs 05/21/24 08/21/24 08/20/24 levothyroxine 75 mcg tablet 75 mcg PO DAILYBB #30 tabs 05/21/24 08/21/24 08/20/24 (Synthroid) melatonin 10 mg capsule 10 mg PO HS #30 caps 05/21/24 08/21/24 08/20/24 metoprolol succinate 25 mg 25 mg PO QAM #30 tabs 05/21/24 08/21/24 08/20/24 tablet,extended release 24 hr calcitriol 0.25 mcg capsule 0.25 mcg PO 3XWK 07/16/24 08/21/24 08/20/24 ferrous fumarate 324 mg (106 mg 324 mg PO QAM 07/16/24 08/21/24 08/20/24 iron) tablet pantoprazole 40 mg tablet,delayed 40 mg PO AMHS 07/16/24 08/21/24 08/20/24 release rosuvastatin 10 mg tablet 10 mg PO HS 07/16/24 08/21/24 08/20/24 trazodone 50 mg tablet 50 mg PO HS 07/16/24 08/21/24 08/20/24 hydroxyzine HCl 10 mg tablet 10 mg PO TID PRN Anxiety 07/25/24 08/21/24 Unknown acetaminophen 500 mg tablet 500 mg PO TID PRN Pain 08/21/24 08/21/24 Unknown buspirone 15 mg tablet 15 mg PO AMHS 08/21/24 08/21/24 08/20/24 clopidogrel 75 mg tablet 75 mg PO QAM 08/21/24 08/21/24 08/20/24 gabapentin 100 mg capsule 100 mg PO AMHS 08/21/24 08/21/24 08/20/24 loperamide 2 mg capsule 2 mg PO QID PRN Diarrhea 08/21/24 08/21/24 Unknown Active Medications Generic Name Dose Route Start Last Admin Trade Name Freq PRN Reason Stop Dose Admin Acetaminophen 650 mg 08/22/24 01:35 08/23/24 21:48 Acetaminophen 325 Mg Tab PO 09/21/24 01:34 650 mg Q4H PRN Administration Pain or Fever Amlodipine Besylate 5 mg 08/22/24 09:00 09/01/24 07:43 Amlodipine Besylate 5 Mg Tab PO 09/21/24 08:59 5 mg QAM YAN Administration Apixaban 2.5 mg 08/22/24 09:00 09/01/24 07:42 Apixaban 2.5 Mg Tab PO 09/21/24 08:59 2.5 mg BID YAN Administration Buspirone HCl 5 mg 08/23/24 21:00 09/01/24 07:43 Buspirone 5 Mg Tab PO 09/22/24 20:59 5 mg TID YAN Administration Calcitriol 0.25 mcg 08/22/24 09:00 09/01/24 07:42 Calcitriol 0.25 Mcg Capsule PO 09/21/24 08:59 0.25 mcg [id number] YAN Administration Clopidogrel Bisulfate 75 mg 08/22/24 09:00 09/01/24 07:42 Clopidogrel Bisulfate 75 Mg Tab PO 09/21/24 08:59 75 mg QAM YAN Administration Empagliflozin 10 mg 08/22/24 12:30 09/01/24 07:43 Empagliflozin 10 Mg Tab PO 09/21/24 12:29 10 mg DAILY YAN Administration Furosemide 20 mg 08/29/24 09:00 09/01/24 07:42 Furosemide 20 Mg Tab PO 09/28/24 08:59 20 mg QAM YAN Administration Levothyroxine Sodium 75 mcg 08/22/24 06:30 09/01/24 05:57 Levothyroxine Sodium 75 Mcg Tablet PO 09/21/24 06:29 75 mcg DAILYBB YAN Administration Melatonin 9 mg 08/28/24 21:00 08/31/24 22:13 Melatonin 3 Mg Tab PO 09/27/24 20:59 9 mg HS YAN Administration Metoprolol Succinate 25 mg 08/22/24 09:00 09/01/24 07:43 Metoprolol Succ 25mg Ext Rel Tab PO 09/21/24 08:59 25 mg QAM YAN Administration Ondansetron HCl 4 mg 08/22/24 10:04 08/29/24 07:57 Ondansetron Inj 2 Mg/Ml 2 Ml Vial IV 09/21/24 10:03 4 mg Q6H PRN Administration Nausea And Vomiting Pantoprazole Sodium 40 mg 08/22/24 09:00 09/01/24 07:42 Pantoprazole 40 Mg Tab PO 09/21/24 08:59 40 mg AMHS YAN Administration Rosuvastatin Calcium 10 mg 08/22/24 21:00 08/31/24 22:13 Rosuvastatin Calcium 10 Mg Tab PO 09/21/24 20:59 10 mg HS YAN Administration Trazodone HCl 100 mg 08/28/24 21:00 08/31/24 22:13 Trazodone Hcl 100 Mg Tab PO 09/27/24 20:59 100 mg HS YAN Administration
[2024-09-01] MEDS: OPTIRAY 320 125ml IV ONE (13:26)
--- NOTE | 2024-09-01 13:53 | CT Scan Report ---
CT ANGIOGRAM OF THE BRAIN COMBO CLINICAL HISTORY: Strokelike symptoms. COMPARISON STUDY: CT of the brain dated 08/31/2024. CT angiogram of the brain dated 07/13/2022. MRI of the brain dated 09/01/2024. TECHNIQUE: Unenhanced axial CT scan of the brain is performed. Subsequently, following the IV adminis tration of 118 cc of Optiray 320, CT angiogram of the brain was performed from the skull base to the vertex. Images are reviewed in the axial, sagittal, and coronal planes. 3-D MIPS images are created a nd assessed. IV contrast was administered without complication. A dose lowering technique was utiliz ed adhering to the principles of ALARA. CT DOSE: 1102.5 mGy.cm FINDINGS: Brain parenchyma: There is age-related involutional change noting moderate subcortical and periventri cular microangiopathic disease. There is no hemorrhage, mass effect, or evidence of acute territorial ischemia by CT criteria. There there is a 1.4 cm meningioma along the frontal convexity. No addition al enhancing lesion is suggested on these angiographic phase images. No extra-axial fluid collection is seen. There is a small chronic lacunar infarct in the right cerebellar hemisphere. Rashid-white ayana er differentiation is preserved. Ventricles, sulci, and cisterns: Prominent secondary to involutional change. CT angiogram of the brain: There is atherosclerotic calcification of the cavernous carotid and verteb ral arteries. The internal carotid arteries at the skull base are patent, as are the anterior and mid dle cerebral arteries. The vertebrobasilar system and posterior cerebral arteries are widely patent. The vertebral arteries are codominant. There is a right posterior communicating artery. There are 2 l eft posterior cerebral arteries. There is no aneurysm, high-grade stenosis, or focal vessel cutoff id entified throughout the intracranial circulation. Dural sinuses: Clear as visualized. Orbits: The bony orbits are intact. The orbital contents are normal as visualized noting bilateral oc ular lens implants. Sinuses and mastoids: Mild mucosal thickening is noted in the left sphenoid sinus and there is trace mucosal thickening in the right maxillary antrum. The remaining paranasal sinuses are clear. There ar e trace mastoid effusions. Calvarium: Unremarkable. IMPRESSION: 1. There is no hemorrhage, mass effect, or evidence of acute territorial ischemia by CT criteria. 2. Unremarkable CT angiogram of the brain. 3. A 1.4 cm meningioma is seen along the left frontal convexity. ACT 112: Negative or not required by law. Electronically signed by: Avel Calero M.D. 09/01/2024 1:52 PM
--- NOTE | 2024-09-01 15:20 | Hospitalist Progress Note ---
Date of Service September 01, 2024 Assessment & Plan (1) Acute on chronic heart failure with preserved ejection fraction: (2) Generalized anxiety disorder: (3) Alzheimer's dementia with anxiety: Plan: With significant short-term memory deficits (4) Hypertension, uncontrolled: (5) Chronic atrial fibrillation: (6) Acute renal failure superimposed on stage 3 chronic kidney disease: (7) Hypothyroidism: (8) Sleep-wake cycle disorder: Plan 85-year-old woman with PMH of hypothyroidism, hypercalcemia, hiatal hernia, thoracic aortic ectasia, CKD stage IIIb,HFpEF, CAD, s/p CABG, HTN, chronic AF, mild aortic stenosis, history of CVA, GERD, history of multiple lacunar infarcts, osteoarthrosis, scoliosis of lumbar spine, shoulder arthritis, degenerative disc disease, meningioma, encephalomalacia, depression, insomnia, mixed incontinence of urge and stress, history of gastric ulcers, anxiety, cognitive deficits who lives alone was brought in because of shortness of breath. Per Chart review, she has significant memory issues, multiple hospitalizations and determined that she forgets to take medications and office appointments. Decompensated Acute on chronic heart failure with preserved ejection fraction Chest x-ray pulmonary congestion. Has mild pedal edema. Cards eval noted Managed with diuretics Lasix currently at 20mg daily Continue jardiance Ro stroke: pt co of blurry vision left eye evening of 08/31. CT Head neg. D/w neuro 09/01, recs are CTA H and N, MRI brain, increase rosuvastatin to 20mg and goal 40mg daily. Await imagings. TAM as OP. A1c and lipid profile sent. Moderate Dementia with agitation Stable Per chart review, she has cognitive impairment and concern for unsafe at home CM working with OAA and patient regarding safe dispo and placement Chronic A-fib Metoprolol dose was decreased to 25 mg recently because of bradycardia Continue Eliquis Hypothyroidism On Synthyroid GERD On Protonix Hyperlipidemia On statin History of CAD status post CABG History of CVA On Plavix and statin and Eliquis CKD stage IIIb Presented with creatinine 1.1 Cr is 1.5 today. Monitor Hypertension On amlodipine and metoprolol Depression Anxiety On buspirone and trazodone Insomnia On trazodone Generalized osteoarthritis On Tylenol as needed DVT ppx- eliquis Code- Full code CM assisting w/ dispo plan. likely able to dc in next 1-2 days. Admission and Anticipated Discharge Date Admission Date: August 21, 2024 Subjective Patient seen and examined at bedside. No new complaints today, pt reports eating ok and moving bowels ok. Pt had left eye blurry vision complain since yesterday, denies any new neurological s/s. Eating ok, and had bm yesterday per rn. Physical Exam Physical Exam: Constitutional: + well hydrated; no acute distress Eyes: PERRL, conjunctiva e normal, anicteri c sclerae ENMT: external ear and n ose normal, oropha rynx normal Respiratory: normal respiratory effort, lungs anayeli ar to auscultation Cardiovascular: Rate/Rhythm: regul ar rate and regula r rhythm Gastrointestinal ( Abdomen): normal bowel sound s, soft, nontender , no hepatosplenom egaly Musculoskeletal: No pedal edema Neurologic: PERRL, EOMI, accom modation nl, no fa ce palsy, no dysar thria Psychiatric: A+Ox3, euthymic af fect Results & Data Results & Data Vital Signs (Past 12 Hours) Vital Signs Temp Pulse Pulse Resp BP Pulse Ox O2 Del Method 09/01/24 11:49 36.6 C 80 16 104/59 L 94 Room Air 09/01/24 08:22 36.4 C L 79 20 132/71 97 Room Air 09/01/24 08:00 59 L (7) Hypothyroidism Hypothyroidism type: unspecified Qualified Code(s): E03.9 - Hypothyroidism, unspecified
--- NOTE | 2024-09-01 16:22 | Magnetic Resonance Report ---
MR brain wo con CLINICAL HISTORY: stroke w/u COMPARISON STUDY: 07/18/[address] scan yesterday. FINDINGS: There is motion artifact. No restricted diffusion seen to suggest acute infarction. No mass effect, midline shift, or hydrocephalus. 1.2 cm anterior medial left frontal meningioma is stable. S table severe chronic small vessel ischemic changes. IMPRESSION: No evidence of acute infarction. Otherwise as described. ACT 112: Negative or not required by law. Electronically signed by: Raoul Perry M.D. 09/01/2024 4:19 PM
--- NOTE | 2024-09-01 19:58 | CT Scan Report ---
HISTORY: Stroke TECHNIQUE: CT angiography of the neck was performed. Coronal and sagittal reformats were created. IV CONTRAST: 100 mL of OMNIPAQUE 300 COMPARISON: None FINDINGS: CTA NECK: Right carotid: No hemodynamically significant stenosis. Left carotid: No hemodynamically significant stenosis. Vertebrobasilar system: No hemodynamically significant stenosis. Aortic arch and subclavian arteries: No hemodynamically significant stenosis. Nonvascular structures: Unremarkable. Stenosis ranges are derived using NASCET criteria. IMPRESSION: No large vessel occlusion or hemodynamically significant stenosis in the neck. For intracranial assessment, please refer to separately dictated CTA head report Electronically signed by Rodo Santoro 09-01-2024 7:57 PM
[2024-09-01] MEDS: ROSUVASTATIN CALCIUM 20 MG TAB PO SCH (20:58)
[2024-09-02 06:47] LABS: Hematocrit (blood only) 37.7 % (37.0-47.0); Hemoglobin 12.8 g/dl (12.0-16.0); Mean Corpuscular Hemoglobin 30.3 pg (25.0-34.0); Mean Corpuscular Volume 89.3 fL (80.0-100.0); Platelet Count 165 K/uL (130-400); RDW Standard Deviation 47.4 fL (36.4-46.3); Red Blood Count 4.22 M/uL (4.20-5.40); White Blood Count 4.79 K/ul (4.8-10.8)
[2024-09-02 07:31] LABS: Anion Gap 7.0 (3-11); Blood Urea Nitrogen 28.0 mg/dl (6-23); Calcium 10.1 mg/dl (8.6-10.3); Carbon Dioxide 26.0 mmol/L (21-32); Chloride 105.0 mmol/L (98-107); Cholesterol 159.0 mg/dl (0-200); Creatinine Clr Calc Pharmacy 27.4 ml/min; Glucose 91.0 mg/dl (70-99(Fasting)); HDL Cholesterol 52.0 mg/dl; Potassium 3.8 mmol/L (3.5-5.1); Sodium 138.0 mmol/L (136-145); Triglycerides 63.0 mg/dl (0-150)
[2024-09-02 08:40] LABS: Hemoglobin A1C 5.8 % (4.5-5.6)
--- NOTE | 2024-09-02 15:04 | Hospitalist Progress Note ---
Date of Service September 02, 2024 Assessment & Plan (1) Acute on chronic heart failure with preserved ejection fraction: (2) Generalized anxiety disorder: (3) Alzheimer's dementia with anxiety: Plan: With significant short-term memory deficits (4) Hypertension, uncontrolled: (5) Chronic atrial fibrillation: (6) Acute renal failure superimposed on stage 3 chronic kidney disease: (7) Hypothyroidism: (8) Sleep-wake cycle disorder: Plan 85-year-old woman with PMH of hypothyroidism, hypercalcemia, hiatal hernia, thoracic aortic ectasia, CKD stage IIIb,HFpEF, CAD, s/p CABG, HTN, chronic AF, mild aortic stenosis, history of CVA, GERD, history of multiple lacunar infarcts, osteoarthrosis, scoliosis of lumbar spine, shoulder arthritis, degenerative disc disease, meningioma, encephalomalacia, depression, insomnia, mixed incontinence of urge and stress, history of gastric ulcers, anxiety, cognitive deficits who lives alone was brought in because of shortness of breath. Per Chart review, she has significant memory issues, multiple hospitalizations and determined that she forgets to take medications and office appointments. Decompensated Acute on chronic heart failure with preserved ejection fraction Chest x-ray pulmonary congestion. Has mild pedal edema. Cards eval noted Managed with diuretics Lasix currently at 20mg daily Continue jardiance Ro stroke: pt co of blurry vision left eye evening of 08/31. CT Head neg. D/w neuro 09/01, recs are CTA H and N, MRI brain, increase rosuvastatin to 20mg and goal 40mg daily.Reviewed imagings. TAM as OP. A1c 5.8 and LDL 94. Now pt states she had left blurry eye for a long time, it is not a new issue with her per pt. Moderate Dementia with agitation Stable Per chart review, she has cognitive impairment and concern for unsafe at home CM working with OAA and patient regarding safe dispo and placement Chronic A-fib Metoprolol dose was decreased to 25 mg recently because of bradycardia Continue Eliquis Hypothyroidism On Synthyroid GERD On Protonix Hyperlipidemia On statin History of CAD status post CABG History of CVA On Plavix and statin and Eliquis CKD stage IIIb Presented with creatinine 1.1 Cr is 1.5 today. Monitor Hypertension On amlodipine and metoprolol Depression Anxiety On buspirone and trazodone Insomnia On trazodone Generalized osteoarthritis On Tylenol as needed DVT ppx- eliquis Code- Full code CM assisting w/ dispo plan. can dc medically. Admission and Anticipated Discharge Date Admission Date: August 21, 2024 Subjective Patient seen and examined at bedside. No new complaints today, pt reports eating ok and moving bowels ok. Pt had left eye blurry vision stable and now she mentions she has been having this for a long time. Physical Exam Physical Exam: Constitutional: + well hydrated; no acute distress Eyes: PERRL, conjunctiva e normal, anicteri c sclerae ENMT: external ear and n ose normal, oropha rynx normal Respiratory: normal respiratory effort, lungs anayeli ar to auscultation Cardiovascular: Rate/Rhythm: regul ar rate and regula r rhythm Gastrointestinal ( Abdomen): normal bowel sound s, soft, nontender , no hepatosplenom egaly Musculoskeletal: No pedal edema Neurologic: PERRL, EOMI, accom modation nl, no fa ce palsy, no dysar thria Psychiatric: A+Ox3, euthymic af fect Results & Data Results & Data Vital Signs (Past 12 Hours) Vital Signs Temp Pulse Resp BP Pulse Ox O2 Del Method 09/02/24 10:49 36.5 C 62 16 119/89 97 Room Air 09/02/24 07:21 36.6 C 65 18 124/75 97 Room Air (7) Hypothyroidism Hypothyroidism type: unspecified Qualified Code(s): E03.9 - Hypothyroidism, unspecified
--- NOTE | 2024-09-03 14:06 | Hospitalist Progress Note ---
Date of Service September 03, 2024 Assessment & Plan (1) Acute on chronic heart failure with preserved ejection fraction: (2) Generalized anxiety disorder: (3) Alzheimer's dementia with anxiety: Plan: With significant short-term memory deficits (4) Hypertension, uncontrolled: (5) Chronic atrial fibrillation: (6) Acute renal failure superimposed on stage 3 chronic kidney disease: (7) Hypothyroidism: (8) Sleep-wake cycle disorder: Plan 85-year-old woman with PMH of hypothyroidism, hypercalcemia, hiatal hernia, thoracic aortic ectasia, CKD stage IIIb,HFpEF, CAD, s/p CABG, HTN, chronic AF, mild aortic stenosis, history of CVA, GERD, history of multiple lacunar infarcts, osteoarthrosis, scoliosis of lumbar spine, shoulder arthritis, degenerative disc disease, meningioma, encephalomalacia, depression, insomnia, mixed incontinence of urge and stress, history of gastric ulcers, anxiety, cognitive deficits who lives alone was brought in because of shortness of breath. Per Chart review, she has significant memory issues, multiple hospitalizations and determined that she forgets to take medications and office appointments. Decompensated Acute on chronic heart failure with preserved ejection fraction Chest x-ray pulmonary congestion. Has mild pedal edema. Cards eval noted Managed with diuretics Lasix currently at 20mg daily Continue jardiance Ro stroke: pt co of blurry vision left eye evening of 08/31. CT Head neg. D/w neuro 09/01, recs are CTA H and N, MRI brain, increase rosuvastatin to 20mg and goal 40mg daily.Reviewed imagings. TAM as OP. A1c 5.8 and LDL 94. likely chronic issue w/ blurry left eye. Moderate Dementia with agitation Stable Per chart review, she has cognitive impairment and concern for unsafe at home CM working with [facility] and patient regarding safe dispo and placement Chronic A-fib Metoprolol dose was decreased to 25 mg recently because of bradycardia Continue Eliquis Hypothyroidism On Synthyroid GERD On Protonix Hyperlipidemia On statin History of CAD status post CABG History of CVA On Plavix and statin and Eliquis CKD stage IIIb Presented with creatinine 1.1 Cr is 1.5 today. Monitor Hypertension On amlodipine and metoprolol Depression Anxiety On buspirone and trazodone Insomnia On trazodone Generalized osteoarthritis On Tylenol as needed DVT ppx- eliquis Code- Full code CM assisting w/ dispo plan. can dc medically. Admission and Anticipated Discharge Date Admission Date: August 21, 2024 Subjective Patient seen and examined at bedside. No new complaints today, pt reports eating ok and moving bowels ok. Pt had left eye blurry vision stable, likely chronic Physical Exam Physical Exam: Constitutional: + well hydrated; no acute distress Eyes: PERRL, conjunctiva e normal, anicteri c sclerae ENMT: external ear and n ose normal, oropha rynx normal Respiratory: normal respiratory effort, lungs anayeli ar to auscultation Cardiovascular: Rate/Rhythm: regul ar rate and regula r rhythm Gastrointestinal ( Abdomen): normal bowel sound s, soft, nontender , no hepatosplenom egaly Musculoskeletal: No pedal edema Neurologic: PERRL, EOMI, accom modation nl, no fa ce palsy, no dysar thria Psychiatric: A+Ox3, euthymic af fect Results & Data Results & Data Vital Signs (Past 12 Hours) Vital Signs Temp Pulse Pulse Resp BP Pulse Ox O2 Del Method 09/03/24 11:45 36.3 C L 60 14 126/66 98 Room Air 09/03/24 07:26 36.5 C 70 18 153/82 H 98 Room Air (7) Hypothyroidism Hypothyroidism type: unspecified Qualified Code(s): E03.9 - Hypothyroidism, unspecified
--- NOTE | 2024-09-04 14:40 | Hospitalist Progress Note ---
Date of Service September 04, 2024 Assessment & Plan (1) Acute on chronic heart failure with preserved ejection fraction: (2) Generalized anxiety disorder: (3) Alzheimer's dementia with anxiety: Plan: With significant short-term memory deficits (4) Hypertension, uncontrolled: (5) Chronic atrial fibrillation: (6) Acute renal failure superimposed on stage 3 chronic kidney disease: (7) Hypothyroidism: (8) Sleep-wake cycle disorder: Plan 85-year-old woman with PMH of hypothyroidism, hypercalcemia, hiatal hernia, thoracic aortic ectasia, CKD stage IIIb,HFpEF, CAD, s/p CABG, HTN, chronic AF, mild aortic stenosis, history of CVA, GERD, history of multiple lacunar infarcts, osteoarthrosis, scoliosis of lumbar spine, shoulder arthritis, degenerative disc disease, meningioma, encephalomalacia, depression, insomnia, mixed incontinence of urge and stress, history of gastric ulcers, anxiety, cognitive deficits who lives alone was brought in because of shortness of breath. Per Chart review, she has significant memory issues, multiple hospitalizations and determined that she forgets to take medications and office appointments. Decompensated Acute on chronic heart failure with preserved ejection fraction Chest x-ray pulmonary congestion. Has mild pedal edema. Cards eval noted Managed with diuretics Lasix currently at 20mg daily Continue jardiance Ro stroke: pt co of blurry vision left eye evening of 08/31. CT Head neg. D/w neuro 09/01, recs are CTA H and N, MRI brain, increase rosuvastatin to 20mg and goal 40mg daily.Reviewed imagings. TAM as OP. A1c 5.8 and LDL 94. likely chronic issue w/ blurry left eye. Moderate Dementia with agitation Stable Per chart review, she has cognitive impairment and concern for unsafe at home CM working with [facility] and patient regarding safe dispo and placement Chronic A-fib Metoprolol dose was decreased to 25 mg recently because of bradycardia Continue Eliquis Hypothyroidism On Synthyroid GERD On Protonix Hyperlipidemia On statin History of CAD status post CABG History of CVA On Plavix and statin and Eliquis CKD stage IIIb Presented with creatinine 1.1 Cr is 1.5 today. Monitor Hypertension On amlodipine and metoprolol Depression Anxiety On buspirone and trazodone Insomnia On trazodone Generalized osteoarthritis On Tylenol as needed DVT ppx- eliquis Code- Full code CM assisting w/ dispo plan. can dc medically. Admission and Anticipated Discharge Date Admission Date: August 21, 2024 Subjective Patient seen and examined at bedside. No new complaints today, pt reports eating ok and moving bowels ok. Pt had left eye blurry vision stable, likely chronic Physical Exam Physical Exam: Constitutional: + well hydrated; no acute distress Eyes: PERRL, conjunctiva e normal, anicteri c sclerae ENMT: external ear and n ose normal, oropha rynx normal Respiratory: normal respiratory effort, lungs anayeli ar to auscultation Cardiovascular: Rate/Rhythm: regul ar rate and regula r rhythm Gastrointestinal ( Abdomen): normal bowel sound s, soft, nontender , no hepatosplenom egaly Musculoskeletal: No pedal edema Neurologic: PERRL, EOMI, accom modation nl, no fa ce palsy, no dysar thria Psychiatric: A+Ox3, euthymic af fect Results & Data Results & Data Vital Signs (Past 12 Hours) Vital Signs Temp Pulse Resp BP Pulse Ox O2 Del Method 09/04/24 14:01 36.4 C L 74 16 125/74 97 Room Air 09/04/24 08:11 65 131/83 09/04/24 07:06 36.6 C 63 16 130/86 97 Room Air (7) Hypothyroidism Hypothyroidism type: unspecified Qualified Code(s): E03.9 - Hypothyroidism, unspecified
[2024-09-05] MEDS: ZOLPIDEM TARTRATE 5 MG TAB PO STA (01:11)
--- NOTE | 2024-09-05 16:12 | Hospitalist Progress Note ---
Date of Service September 05, 2024 Assessment & Plan (1) Acute on chronic heart failure with preserved ejection fraction: (2) Generalized anxiety disorder: (3) Alzheimer's dementia with anxiety: Plan: With significant short-term memory deficits (4) Hypertension, uncontrolled: (5) Chronic atrial fibrillation: (6) Acute renal failure superimposed on stage 3 chronic kidney disease: (7) Hypothyroidism: (8) Sleep-wake cycle disorder: Plan 85-year-old woman with PMH of hypothyroidism, hypercalcemia, hiatal hernia, thoracic aortic ectasia, CKD stage IIIb,HFpEF, CAD, s/p CABG, HTN, chronic AF, mild aortic stenosis, history of CVA, GERD, history of multiple lacunar infarcts, osteoarthrosis, scoliosis of lumbar spine, shoulder arthritis, degenerative disc disease, meningioma, encephalomalacia, depression, insomnia, mixed incontinence of urge and stress, history of gastric ulcers, anxiety, cognitive deficits who lives alone was brought in because of shortness of breath. Per Chart review, she has significant memory issues, multiple hospitalizations and determined that she forgets to take medications and office appointments. Decompensated Acute on chronic heart failure with preserved ejection fraction Chest x-ray pulmonary congestion. Has mild pedal edema. Cards eval noted Managed with diuretics Lasix currently at 20mg daily Continue jardiance Ro stroke: pt co of blurry vision left eye evening of 08/31. CT Head neg. D/w neuro 09/01, recs are CTA H and N, MRI brain, increase rosuvastatin to 20mg and goal 40mg daily.Reviewed imagings. TAM as OP. A1c 5.8 and LDL 94. likely chronic issue w/ blurry left eye. Moderate Dementia with agitation Stable Per chart review, she has cognitive impairment and concern for unsafe at home CM working with [facility] and patient regarding safe dispo and placement Chronic A-fib Metoprolol dose was decreased to 25 mg recently because of bradycardia Continue Eliquis Hypothyroidism On Synthyroid GERD On Protonix Hyperlipidemia On statin History of CAD status post CABG History of CVA On Plavix and statin and Eliquis CKD stage IIIb Presented with creatinine 1.1 Cr is 1.5 today. Monitor Hypertension On amlodipine and metoprolol Depression Anxiety On buspirone and trazodone Insomnia On trazodone Generalized osteoarthritis On Tylenol as needed DVT ppx- eliquis Code- Full code CM assisting w/ dispo plan. can dc medically. Admission and Anticipated Discharge Date Admission Date: August 21, 2024 Subjective Patient seen and examined at bedside. No new complaints today, pt reports eating ok and moving bowels ok. Pt had left eye blurry vision stable, likely chronic Physical Exam Physical Exam: Constitutional: + well hydrated; no acute distress Eyes: PERRL, conjunctiva e normal, anicteri c sclerae ENMT: external ear and n ose normal, oropha rynx normal Respiratory: normal respiratory effort, lungs anayeli ar to auscultation Cardiovascular: Rate/Rhythm: regul ar rate and regula r rhythm Gastrointestinal ( Abdomen): normal bowel sound s, soft, nontender , no hepatosplenom egaly Musculoskeletal: No pedal edema Neurologic: PERRL, EOMI, accom modation nl, no fa ce palsy, no dysar thria Psychiatric: A+Ox3, euthymic af fect Results & Data Results & Data Vital Signs (Past 12 Hours) Vital Signs Temp Pulse Pulse Resp BP BP Pulse Ox 09/05/24 14:28 36.5 C 65 16 135/81 98 09/05/24 08:31 63 134/77 09/05/24 07:14 36.7 C 77 16 145/75 H 97 O2 Del Method 09/05/24 14:28 Room Air 09/05/24 08:31 09/05/24 07:14 Room Air (7) Hypothyroidism Hypothyroidism type: unspecified Qualified Code(s): E03.9 - Hypothyroidism, unspecified
[2024-09-06 07:19] LABS: Hematocrit (blood only) 38.3 % (37.0-47.0); Hemoglobin 12.7 g/dl (12.0-16.0); Mean Corpuscular Hemoglobin 30.2 pg (25.0-34.0); Mean Corpuscular Volume 91.0 fL (80.0-100.0); Platelet Count 166 K/uL (130-400); RDW Standard Deviation 47.6 fL (36.4-46.3); Red Blood Count 4.21 M/uL (4.20-5.40); White Blood Count 5.63 K/ul (4.8-10.8)
[2024-09-06 07:52] LABS: Anion Gap 6.0 (3-11); Blood Urea Nitrogen 31.0 mg/dl (6-23); Calcium 10.0 mg/dl (8.6-10.3); Carbon Dioxide 29.0 mmol/L (21-32); Chloride 104.0 mmol/L (98-107); Creatinine Clr Calc Pharmacy 20.4 ml/min; Glucose 93.0 mg/dl (70-99(Fasting)); Potassium 3.9 mmol/L (3.5-5.1); Sodium 139.0 mmol/L (136-145)
--- NOTE | 2024-09-06 14:29 | Hospitalist Progress Note ---
Date of Service September 06, 2024 Assessment & Plan (1) Acute on chronic heart failure with preserved ejection fraction: (2) Generalized anxiety disorder: (3) Alzheimer's dementia with anxiety: (4) Hypertension, uncontrolled: (5) Chronic atrial fibrillation: (6) Acute renal failure superimposed on stage 3 chronic kidney disease: (7) Hypothyroidism: (8) Sleep-wake cycle disorder: Plan 85-year-old woman with PMH of hypothyroidism, hypercalcemia, hiatal hernia, thoracic aortic ectasia, CKD stage IIIb,HFpEF, CAD, s/p CABG, HTN, chronic AF, mild aortic stenosis, history of CVA, GERD, history of multiple lacunar infarcts, osteoarthrosis, scoliosis of lumbar spine, shoulder arthritis, degenerative disc disease, meningioma, encephalomalacia, depression, insomnia, mixed incontinence of urge and stress, history of gastric ulcers, anxiety, cognitive deficits who lives alone was brought in because of shortness of breath. Per Chart review, she has significant memory issues, multiple hospitalizations and determined that she forgets to take medications and office appointments. Decompensated Acute on chronic heart failure with preserved ejection fraction Chest x-ray pulmonary congestion. Has mild pedal edema. Cards eval noted Managed with diuretics Lasix currently at 20mg daily Continue jardiance Ro stroke: pt co of blurry vision left eye evening of 08/31. CT Head neg. D/w neuro 09/01, recs are CTA H and N, MRI brain, increase rosuvastatin to 20mg and goal 40mg daily.Reviewed imagings. TAM as OP. A1c 5.8 and LDL 94. likely chronic issue w/ blurry left eye. Moderate Dementia with agitation Stable Per chart review, she has cognitive impairment and concern for unsafe at home CM working with [facility] and patient regarding safe dispo and placement Chronic A-fib Metoprolol dose was decreased to 25 mg recently because of bradycardia Continue Eliquis Hypothyroidism On Synthyroid GERD On Protonix Hyperlipidemia On statin History of CAD status post CABG History of CVA On Plavix and statin and Eliquis CKD stage IIIb Presented with creatinine 1.1 Cr is 1.5 today. Monitor Hypertension On amlodipine and metoprolol Depression Anxiety On buspirone and trazodone Insomnia On trazodone Generalized osteoarthritis On Tylenol as needed DVT ppx- eliquis Code- Full code CM assisting w/ dispo plan. can dc medically. Admission and Anticipated Discharge Date Admission Date: August 21, 2024 Subjective Patient seen and examined at bedside. Comfortable; not in distress. Denies fever, chills, chest pain, shortness of breath, abdominal pain or urinary symptoms. No significant overnight events Review of Systems Review of Systems: All systems reviewed & are unremarkable except as noted in Subjective Physical Exam Physical Exam: Constitutional: + well hydrated; no acute distress Eyes: PERRL, conjunctiva e normal, anicteri c sclerae ENMT: external ear and n ose normal, oropha rynx normal Respiratory: normal respiratory effort, lungs anayeli ar to auscultation Cardiovascular: Rate/Rhythm: regul ar rate and regula r rhythm Gastrointestinal ( Abdomen): normal bowel sound s, soft, nontender , no hepatosplenom egaly Musculoskeletal: No pedal edema Neurologic: PERRL, EOMI, accom modation nl, no fa ce palsy, no dysar thria Psychiatric: A+Ox3, euthymic af fect Constitutional: + well hydrated; no acute distress Eyes: PERRL, conjunctivae normal, anicteric sclerae ENMT: external ear and nose normal, oropharynx normal Respiratory: normal respiratory effort, lungs clear to auscultation Cardiovascular: Rate/Rhythm: regular rate and regular rhythm Gastrointestinal (Abdomen): normal bowel sounds, soft, nontender, no hepatosplenomegaly Neurologic: PERRL, EOMI, accommodation nl, no face palsy, no dysarthria Psychiatric: A+Ox3, euthymic affect Results & Data Results & Data Vital Signs (Past 12 Hours) Vital Signs Temp Pulse Resp BP Pulse Ox O2 Del Method 09/06/24 07:41 36.6 C 57 L 16 110/71 98 Room Air 09/06/24 07:17 Room Air (7) Hypothyroidism Hypothyroidism type: unspecified Qualified Code(s): E03.9 - Hypothyroidism, unspecified
[2024-09-07] MEDS: ZOLPIDEM TARTRATE 5 MG TAB PO STA (00:46)
[2024-09-07] MEDS: ONDANSETRON 4 MG OD TAB PO STA (10:03)
--- NOTE | 2024-09-07 13:35 | Hospitalist Progress Note ---
Date of Service September 07, 2024 Assessment & Plan (1) Acute on chronic heart failure with preserved ejection fraction: (2) Generalized anxiety disorder: (3) Alzheimer's dementia with anxiety: (4) Hypertension, uncontrolled: (5) Chronic atrial fibrillation: (6) Acute renal failure superimposed on stage 3 chronic kidney disease: (7) Hypothyroidism: (8) Sleep-wake cycle disorder: Plan 85-year-old woman with PMH of hypothyroidism, hypercalcemia, hiatal hernia, thoracic aortic ectasia, CKD stage IIIb,HFpEF, CAD, s/p CABG, HTN, chronic AF, mild aortic stenosis, history of CVA, GERD, history of multiple lacunar infarcts, osteoarthrosis, scoliosis of lumbar spine, shoulder arthritis, degenerative disc disease, meningioma, encephalomalacia, depression, insomnia, mixed incontinence of urge and stress, history of gastric ulcers, anxiety, cognitive deficits who lives alone was brought in because of shortness of breath. Per Chart review, she has significant memory issues, multiple hospitalizations and determined that she forgets to take medications and office appointments. Decompensated Acute on chronic heart failure with preserved ejection fraction Chest x-ray pulmonary congestion. Has mild pedal edema. Cards eval noted Managed with diuretics Lasix currently at 20mg daily Continue jardiance Ro stroke: pt co of blurry vision left eye evening of 08/31. CT Head neg. D/w neuro 09/01, recs are CTA H and N, MRI brain, increase rosuvastatin to 20mg and goal 40mg daily.Reviewed imagings. TAM as OP. A1c 5.8 and LDL 94. likely chronic issue w/ blurry left eye. Moderate Dementia with agitation Stable Per chart review, she has cognitive impairment and concern for unsafe at home CM working with [facility] and patient regarding safe dispo and placement Chronic A-fib Metoprolol dose was decreased to 25 mg recently because of bradycardia Continue Eliquis Hypothyroidism On Synthyroid GERD On Protonix Hyperlipidemia On statin History of CAD status post CABG History of CVA On Plavix and statin and Eliquis CKD stage IIIb Presented with creatinine 1.1 Cr is 1.5 today. Monitor Hypertension On amlodipine and metoprolol Depression Anxiety On buspirone and trazodone Insomnia On trazodone Generalized osteoarthritis On Tylenol as needed DVT ppx- eliquis Code- Full code CM assisting w/ dispo plan. can dc medically. Admission and Anticipated Discharge Date Admission Date: August 21, 2024 Subjective Patient seen and examined at bedside. Reports some nausea; tolerating diet. Review of Systems Review of Systems: All systems reviewed & are unremarkable except as noted in Subjective Physical Exam Physical Exam: Constitutional: + well hydrated; no acute distress Eyes: PERRL, conjunctiva e normal, anicteri c sclerae ENMT: external ear and n ose normal, oropha rynx normal Respiratory: normal respiratory effort, lungs anayeli ar to auscultation Cardiovascular: Rate/Rhythm: regul ar rate and regula r rhythm Gastrointestinal ( Abdomen): normal bowel sound s, soft, nontender , no hepatosplenom egaly Musculoskeletal: No pedal edema Neurologic: PERRL, EOMI, accom modation nl, no fa ce palsy, no dysar thria Psychiatric: A+Ox3, euthymic af fect Results & Data Results & Data Vital Signs (Past 12 Hours) Vital Signs Temp Pulse Resp BP Pulse Ox O2 Del Method 09/07/24 07:19 36.5 C 81 18 164/82 H 97 Room Air 09/07/24 07:18 Room Air (7) Hypothyroidism Hypothyroidism type: unspecified Qualified Code(s): E03.9 - Hypothyroidism, unspecified
[2024-09-07] MEDS: LORazepam 0.5 MG TAB PO STA (20:27)
--- NOTE | 2024-09-08 13:00 | Hospitalist Progress Note ---
Date of Service September 08, 2024 Assessment & Plan (1) Acute on chronic heart failure with preserved ejection fraction: (2) Generalized anxiety disorder: (3) Alzheimer's dementia with anxiety: (4) Hypertension, uncontrolled: (5) Chronic atrial fibrillation: (6) Acute renal failure superimposed on stage 3 chronic kidney disease: (7) Hypothyroidism: (8) Sleep-wake cycle disorder: Plan 85-year-old woman with PMH of hypothyroidism, hypercalcemia, hiatal hernia, thoracic aortic ectasia, CKD stage IIIb,HFpEF, CAD, s/p CABG, HTN, chronic AF, mild aortic stenosis, history of CVA, GERD, history of multiple lacunar infarcts, osteoarthrosis, scoliosis of lumbar spine, shoulder arthritis, degenerative disc disease, meningioma, encephalomalacia, depression, insomnia, mixed incontinence of urge and stress, history of gastric ulcers, anxiety, cognitive deficits who lives alone was brought in because of shortness of breath. Per Chart review, she has significant memory issues, multiple hospitalizations and determined that she forgets to take medications and office appointments. Decompensated Acute on chronic heart failure with preserved ejection fraction Chest x-ray pulmonary congestion. Has mild pedal edema. Cards eval noted Managed with diuretics Lasix currently at 20mg daily Continue jardiance Ro stroke: pt co of blurry vision left eye evening of 08/31. CT Head neg. D/w neuro 09/01, recs are CTA H and N, MRI brain, increase rosuvastatin to 20mg and goal 40mg daily.Reviewed imagings. TAM as OP. A1c 5.8 and LDL 94. likely chronic issue w/ blurry left eye. Moderate Dementia with agitation Stable Per chart review, she has cognitive impairment and concern for unsafe at home CM working with [facility] and patient regarding safe dispo and placement Chronic A-fib Metoprolol dose was decreased to 25 mg recently because of bradycardia Continue Eliquis Hypothyroidism On Synthyroid GERD On Protonix Hyperlipidemia On statin History of CAD status post CABG History of CVA On Plavix and statin and Eliquis CKD stage IIIb Presented with creatinine 1.1 Cr is 1.5 today. Monitor Hypertension On amlodipine and metoprolol Depression Anxiety On buspirone and trazodone Insomnia On trazodone Generalized osteoarthritis On Tylenol as needed DVT ppx- eliquis Code- Full code CM assisting w/ dispo plan. can dc medically. Admission and Anticipated Discharge Date Admission Date: August 21, 2024 Subjective Patient seen and examined at bedside.She is comfortable; not in any distress. Review of Systems Review of Systems: All systems reviewed & are unremarkable except as noted in Subjective Physical Exam Physical Exam: Constitutional: + well hydrated; no acute distress Eyes: PERRL, conjunctiva e normal, anicteri c sclerae ENMT: external ear and n ose normal, oropha rynx normal Respiratory: normal respiratory effort, lungs anayeli ar to auscultation Cardiovascular: Rate/Rhythm: regul ar rate and regula r rhythm Gastrointestinal ( Abdomen): normal bowel sound s, soft, nontender , no hepatosplenom egaly Musculoskeletal: No pedal edema Neurologic: PERRL, EOMI, accom modation nl, no fa ce palsy, no dysar thria Psychiatric: A+Ox3, euthymic af fect Constitutional: + well hydrated; no acute distress Eyes: PERRL, conjunctivae normal, anicteric sclerae ENMT: external ear and nose normal, oropharynx normal Respiratory: normal respiratory effort, lungs clear to auscultation Cardiovascular: Rate/Rhythm: regular rate and regular rhythm Gastrointestinal (Abdomen): normal bowel sounds, soft, nontender, no hepatosplenomegaly Neurologic: PERRL, EOMI, accommodation nl, no face palsy, no dysarthria Psychiatric: A+Ox3, euthymic affect Results & Data Results & Data Vital Signs (Past 12 Hours) Vital Signs Temp Pulse Resp BP Pulse Ox O2 Del Method 09/08/24 12:13 36.6 C 64 18 110/71 98 Room Air 09/08/24 08:29 36.8 C 82 16 126/66 96 Room Air (7) Hypothyroidism Hypothyroidism type: unspecified Qualified Code(s): E03.9 - Hypothyroidism, unspecified
--- NOTE | 2024-09-09 15:24 | Hospitalist Progress Note ---
Date of Service September 09, 2024 Assessment & Plan (1) Acute on chronic heart failure with preserved ejection fraction: (2) Generalized anxiety disorder: (3) Alzheimer's dementia with anxiety: (4) Hypertension, uncontrolled: (5) Chronic atrial fibrillation: (6) Acute renal failure superimposed on stage 3 chronic kidney disease: (7) Hypothyroidism: (8) Sleep-wake cycle disorder: Plan 85-year-old woman with PMH of hypothyroidism, hypercalcemia, hiatal hernia, thoracic aortic ectasia, CKD stage IIIb,HFpEF, CAD, s/p CABG, HTN, chronic AF, mild aortic stenosis, history of CVA, GERD, history of multiple lacunar infarcts, osteoarthrosis, scoliosis of lumbar spine, shoulder arthritis, degenerative disc disease, meningioma, encephalomalacia, depression, insomnia, mixed incontinence of urge and stress, history of gastric ulcers, anxiety, cognitive deficits who lives alone was brought in because of shortness of breath. Per Chart review, she has significant memory issues, multiple hospitalizations and determined that she forgets to take medications and office appointments. Decompensated Acute on chronic heart failure with preserved ejection fraction Chest x-ray pulmonary congestion. Has mild pedal edema. Cards eval noted Managed with diuretics Lasix currently at 20mg daily Continue jardiance Ro stroke: pt co of blurry vision left eye evening of 08/31. CT Head neg. D/w neuro 09/01, recs are CTA H and N, MRI brain, increase rosuvastatin to 20mg and goal 40mg daily.Reviewed imagings. TAM as OP. A1c 5.8 and LDL 94. likely chronic issue w/ blurry left eye. Moderate Dementia with agitation Stable Per chart review, she has cognitive impairment and concern for unsafe at home CM working with [facility] and patient regarding safe dispo and placement Chronic A-fib Metoprolol dose was decreased to 25 mg recently because of bradycardia Continue Eliquis Hypothyroidism On Synthyroid GERD On Protonix Hyperlipidemia On statin History of CAD status post CABG History of CVA On Plavix and statin and Eliquis CKD stage IIIb Presented with creatinine 1.1 Cr is 1.5 today. Monitor Hypertension On amlodipine and metoprolol Depression Anxiety On buspirone and trazodone Insomnia On trazodone Generalized osteoarthritis On Tylenol as needed Discussed with patient's brother and surrogate decision maker Elijah over the phone. He reports that he will coordinate with case management and office of aging so that patient will have supervision/caregiver that will enable her to go back to her apartment. DVT ppx- eliquis Code- Full code Time spent evaluating patient, direct bedside care, chart review, placing orders, interpretation of diagnostic studies, discussion with consultants, patient, and family members, as well as other required patient management activities is 50 minutes Please note the above document was generated using voice recognition software. It may contain grammatical, syntax or spelling errors. Any formal questions or concerns about the content, text or information contained within the body of this dictation should be directly addressed to the provider for clarification Admission and Anticipated Discharge Date Admission Date: August 21, 2024 Subjective Patient seen and examined at bedside. She is sitting up at the side of the bed; not in any distress. She says she wants to go home. Review of Systems Review of Systems: All systems reviewed & are unremarkable except as noted in Subjective Physical Exam 2 Physical Exam: Constitutional: + well hydrated; no acute distress Eyes: PERRL, conjunctiva e normal, anicteri c sclerae ENMT: external ear and n ose normal, oropha rynx normal Respiratory: normal respiratory effort, lungs anayeli ar to auscultation Cardiovascular: Rate/Rhythm: regul ar rate and regula r rhythm Gastrointestinal ( Abdomen): normal bowel sound s, soft, nontender , no hepatosplenom egaly Musculoskeletal: No pedal edema Neurologic: PERRL, EOMI, accom modation nl, no fa ce palsy, no dysar thria Psychiatric: A+Ox3, euthymic af fect Results & Data Results & Data Vital Signs (Past 12 Hours) Vital Signs Temp Pulse Resp BP BP Pulse Ox O2 Del Method 09/09/24 14:54 36.6 C 60 20 117/71 97 Room Air 09/09/24 14:51 98 09/09/24 08:00 78 09/09/24 07:57 36.7 C 59 L 18 133/73 96 Room Air (7) Hypothyroidism Hypothyroidism type: unspecified Qualified Code(s): E03.9 - Hypothyroidism, unspecified
--- NOTE | 2024-09-10 15:11 | Hospitalist Progress Note ---
Date of Service September 10, 2024 Assessment & Plan (1) Acute on chronic heart failure with preserved ejection fraction: (2) Dementia: (3) Unable to care for self: Plan Pt is an 85y/o F with PMHx significant for hypothyroidism, hypercalcemia, hiatal hernia, thoracic aortic ectasia, CKD stage IIIb, HFpEF, CAD s/p CABG, HTN, chronic AF, mild aortic stenosis, history of CVA, GERD, history of multiple lacunar infarcts, osteoarthrosis, scoliosis of lumbar spine, shoulder arthritis, degenerative disc disease, meningioma, encephalomalacia, depression, insomnia, mixed incontinence of urge and stress, history of gastric ulcers, anxiety and cognitive deficits who was brought into the ED on 08/21/24 due to SOB. Per chart review, pt has significant memory issues and multiple recent hospitalizations. Pt w/ clear cognitive deficits on exam - i.e., not remembering what brought her into the hospital, repetitive questioning/forgetfulness. Pt misses doctors' appointments/outpt follow-up appts, forgets to take medications, forgets to eat/drink; strong concern for pt's ability to live alone. #Decompensated acute on chronic HFpEF Pt p/w SOB and CXR noted pulm congestion w/ mild pedal edema on admission TTE: no changed when compared to prior study, LVEF = 60-65% Sx resolved w/ cards recs of po Lasix 20mg daily and Jardiance 10mg daily; weight remains stable #Stroke r/o --> Pt c/o blurry vision in L eye on evening of 08/31. CT head negative. D/w neuro on 09/01, recs are CTA head/neck, MRI brain. Increase rosuvastatin to 20mg with goal of 40mg daily. Reviewed imaging - no evidence of acute infarct, no significant stenosis. Recommend eval for TAM as OP. A1c 5.8% and LDL 94. Likely chronic issue w/ blurry L eye. #Moderate dementia w/ agitation and anxiety Clear cognitive deficits on exam as per above; has case open with [facility] Pt misses doctors' appointments, forgets to take medications/eat/drink (very poor historian) Strong concerns regarding pt's ability to live alone -Reinforced by PT/OT as pt exhibits poor safety awareness -5 repeat admissions in the past 6 months; MOCA Pt is a safety risk to be d/c home at this time given very poor memory, inability to take care of self and minimal support at home -PT/OT recommending SNF/assisted-living placement Pt's brother, Elijah, now wants her to return home to her independent living per previous provider discussion w/ him -Pt's brother reportedly lives in [place], [place] (83 mi away) -Attempted to contact him this afternoon but there was no answer --> will try again tomorrow - services previously denied based on safety of pt at home alone Waiting to hear back from [facility] to determine next steps w/ dispo planning #Chronic AFib Metoprolol dose was decreased to 25mg 2/2 bradycardia Continue Eliquis #Hypothyroidism On Synthroid #GERD On Protonix #HLD On statin #History of CAD s/p CABG #History of CVA On Plavix, statin and Eliquis #CKD stage IIIb Cr stable as of 09/06, repeat labs in am Variable Cr per outpt chart review (likely d/t poor monitoring) --> baseline anywhere b/n 1.3-1.7 since Feb 2023 Avoid nephrotoxic agents as able #HTN On amlodipine, metoprolol #Depression #Anxiety On buspirone, trazodone #Insomnia On trazodone #Generalized osteoarthritis Continue Tylenol PRN Per previous provider: Discussed with patient's brother and surrogate decision maker Elijah over the phone. He reports that he will coordinate with case management and office of aging so that patient will have supervision/caregiver that will enable her to go back to her apartment. Again, attempted to call pt's brother, Elijah, today however there was no answer. Will attempt to contact him again tomorrow. DVT Prophylaxis: Deana PCP: Gilbert Calloway MD Disposition: Uncertain d/c plans at this time as per above, working w/ CM Patient seen in collaboration with Dr. Mendoza. Please see addendum. I spent a total of 46 minutes coordinating, documenting, and providing care for this patient excluding time spent in the performance of separately billed services or time spent by another provider/QHP. This included personally reviewing all current laboratories and imaging studies, medical reconciliation, outpatient chart review and discussion with specialists. This chart was completed in part utilizing Speech Voice Recognition Software. Grammatical errors, random word insertions, pronoun errors, and incomplete sentences are an occasional consequence of this system due to software limitations, ambient noise, and hardware issues. Any formal questions or concerns about the content, text, or information contained within the body of this dictation should be directly addressed to the provider for clarification. Admission and Anticipated Discharge Date Admission Date: August 21, 2024 Supervising Physician Co-Signing Physician Notes pt was not seen personally. Subjective Pt seen and examined in room N387-2. Pt sitting up in chair at bedside eating lunch. No acute distress; offers no complaints. Repeatedly states she wishes to go home. Review of Systems Review of Systems: At least ten systems reviewed and negative, except as noted in the subjective section. Physical Exam Physical Exam: General/Neuro: Elderly F, NAD, sitting up in chair at bedside eating lunch, A&O to direct questioning but frequently forgetful/repetitive questioning, remains cooperative but quite anxious regarding her care/dispo plans, impaired memory/decision-making HEENT: Normocephalic, atraumatic, external ear and nose normal, oropharynx moist Respiratory: Normal respiratory effort, lungs CTAB, no accessory muscle use Cardiovascular: RRR, normal peripheral pulses, no BLE edema Abdomen/GI: Normal bowel sounds, soft, nontender to palpation in all quadrants Extremities/MSK: No cyanosis or clubbing, extremities motor strength intact, moves all extremities Results & Data Results & Data Vital Signs (Past 12 Hours) Vital Signs Temp Pulse Resp BP BP Pulse Ox O2 Del Method 09/10/24 14:30 36.7 C 58 L 18 103/56 L 97 Room Air 09/10/24 07:22 36.8 C 66 16 112/56 L 98 Room Air (2) Dementia Dementia behavioral or psychological symptom: unspecified whether behavioral, psychotic, or mood disturbance or anxiety Dementia severity: unspecified severity Dementia type: unspecified type Qualified Code(s): F03.90 - Unspecified dementia, unspecified severity, without behavioral disturbance, psychotic disturbance, mood disturbance, and anxiety
[2024-09-11 07:51] LABS: Hematocrit (blood only) 38.8 % (37.0-47.0); Hemoglobin 12.8 g/dl (12.0-16.0); Mean Corpuscular Hemoglobin 29.6 pg (25.0-34.0); Mean Corpuscular Volume 89.8 fL (80.0-100.0); Platelet Count 153 K/uL (130-400); RDW Standard Deviation 48.0 fL (36.4-46.3); Red Blood Count 4.32 M/uL (4.20-5.40); White Blood Count 5.59 K/ul (4.8-10.8)
[2024-09-11] MEDS: ONDANSETRON 4 MG OD TAB PO PRN (08:08)
[2024-09-11 08:35] LABS: Anion Gap 7.0 (3-11); Blood Urea Nitrogen 25.0 mg/dl (6-23); Calcium 10.2 mg/dl (8.6-10.3); Carbon Dioxide 26.0 mmol/L (21-32); Chloride 107.0 mmol/L (98-107); Creatinine Clr Calc Pharmacy 26.6 ml/min; Glucose 92.0 mg/dl (70-99(Fasting)); Potassium 3.7 mmol/L (3.5-5.1); Sodium 140.0 mmol/L (136-145)
--- NOTE | 2024-09-11 15:31 | Hospitalist Progress Note ---
Date of Service September 11, 2024 Assessment & Plan (1) Acute on chronic heart failure with preserved ejection fraction: (2) Dementia: (3) Unable to care for self: Plan Pt is an 85y/o F with PMHx significant for hypothyroidism, hypercalcemia, hiatal hernia, thoracic aortic ectasia, CKD stage IIIb, HFpEF, CAD s/p CABG, HTN, chronic AF, mild aortic stenosis, history of CVA, GERD, history of multiple lacunar infarcts, osteoarthrosis, scoliosis of lumbar spine, shoulder arthritis, degenerative disc disease, meningioma, encephalomalacia, depression, insomnia, mixed incontinence of urge and stress, history of gastric ulcers, anxiety and cognitive deficits who was brought into the ED on 08/21/24 due to SOB. Per chart review, pt has significant memory issues and multiple recent hospitalizations. Pt w/ clear cognitive deficits on exam - i.e., not remembering what brought her into the hospital, repetitive questioning/forgetfulness. Pt misses doctors' appointments/outpt follow-up appts, forgets to take medications, forgets to eat/drink; strong concern for pt's ability to live alone. #Decompensated acute on chronic HFpEF Pt p/w SOB and CXR noted pulm congestion w/ mild pedal edema on admission TTE: no changed when compared to prior study, LVEF = 60-65% Sx resolved w/ cards recs of po Lasix 20mg daily and Jardiance 10mg daily; weight remains stable #Stroke r/o --> Pt c/o blurry vision in L eye on evening of 08/31. CT head negative. D/w neuro on 09/01, recs are CTA head/neck, MRI brain. Increase rosuvastatin to 20mg with goal of 40mg daily. Reviewed imaging - no evidence of acute infarct, no significant stenosis. Recommend eval for TAM as OP. A1c 5.8% and LDL 94. Likely chronic issue w/ blurry L eye. #Moderate dementia w/ agitation and anxiety Clear cognitive deficits on exam as per above; has case open with [facility] Pt misses doctors' appointments, forgets to take medications/eat/drink (very poor historian) Strong concerns regarding pt's ability to live alone -Reinforced by PT/OT as pt exhibits poor safety awareness -5 repeat admissions in the past 6 months; MOCA Pt is a safety risk to be d/c home at this time given very poor memory, inability to take care of self and minimal support at home -PT/OT recommending SNF/assisted-living placement Pt's brother, Elijah, now wants her to return home to her independent living per previous provider discussion w/ him -Pt's brother reportedly lives in [place], [place] (83 mi away) -HH services previously denied based on safety of pt at home alone Waiting to hear back from [facility] to determine next steps w/ dispo planning; ? [facility] for respite stay until able to get caregivers arranged #Chronic AFib Metoprolol dose was decreased to 25mg 2/2 bradycardia Continue Eliquis #Hypothyroidism On Synthroid #GERD On Protonix #HLD On statin #History of CAD s/p CABG #History of CVA On Plavix, statin and Eliquis #CKD stage IIIb Cr stable on repeat labs Variable Cr per outpt chart review (likely d/t poor monitoring) --> baseline anywhere b/n 1.3-1.7 since Feb 2023 Avoid nephrotoxic agents as able #HTN On amlodipine, metoprolol #Depression #Anxiety On buspirone, trazodone #Insomnia On trazodone #Generalized osteoarthritis Continue Tylenol PRN Per previous provider: Discussed with patient's brother and surrogate decision maker Elijah over the phone. He reports that he will coordinate with case management and office of aging so that patient will have supervision/caregiver that will enable her to go back to her apartment. Will attempt to call the patient's brother, Elijah, again later today; previously unsuccessful on 09/10. DVT Prophylaxis: Deana PCP: Gilbert Callwoay MD Disposition: Uncertain d/c plans at this time as per above, working w/ CM Patient seen in collaboration with Dr. Mendoza. Please see addendum. I spent a total of 32 minutes coordinating, documenting, and providing care for this patient excluding time spent in the performance of separately billed services or time spent by another provider/QHP. This included personally reviewing all current laboratories and imaging studies, medical reconciliation, outpatient chart review and discussion with specialists. This chart was completed in part utilizing Speech Voice Recognition Software. Grammatical errors, random word insertions, pronoun errors, and incomplete sentences are an occasional consequence of this system due to software limitations, ambient noise, and hardware issues. Any formal questions or concerns about the content, text, or information contained within the body of this dictation should be directly addressed to the provider for clarification. Admission and Anticipated Discharge Date Admission Date: August 21, 2024 Supervising Physician Co-Signing Physician Notes pt was not seen personally. Subjective Patient seen and examined in room N3-2. Complaining of some nausea but no vomiting. Was able to eat breakfast. Review of Systems Review of Systems: At least ten systems reviewed and negative, except as noted in the subjective section. Physical Exam Physical Exam: General/Neuro: Elderly F, NAD, laying down in bed, A&O to direct questioning but frequently forgetful/repetitive questioning, remains cooperative but quite anxious regarding her care/dispo plans, impaired memory/decision-making HEENT: Normocephalic, atraumatic, external ear and nose normal, oropharynx moist Respiratory: Normal respiratory effort, lungs CTAB, no accessory muscle use Cardiovascular: RRR, normal peripheral pulses, no BLE edema Abdomen/GI: Normal bowel sounds, soft, nontender to palpation in all quadrants Extremities/MSK: No cyanosis or clubbing, extremities motor strength intact, moves all extremities Results & Data Results & Data Vital Signs (Past 12 Hours) Vital Signs Temp Pulse Resp BP Pulse Ox O2 Del Method 09/11/24 14:38 36.7 C 65 16 116/66 98 Room Air 09/11/24 09:25 74 09/11/24 07:27 36.9 C 58 L 16 120/80 98 Room Air Laboratory Results Short CBC 09/11/24 Range/Units 07:19 WBC 5.59 (4.8-10.8) K/ul Hgb 12.8 (12.0-16.0) g/dl Hct 38.8 (37.0-47.0) % Plt Count 153 (130-400) K/uL BMP 09/11/24 07:19 Sodium 140 Potassium 3.7 Chloride 107 Carbon Dioxide 26 BUN 25 H Creatinine 1.36 H Glucose 92 Calcium 10.2 (2) Dementia Dementia behavioral or psychological symptom: unspecified whether behavioral, psychotic, or mood disturbance or anxiety Dementia severity: unspecified severity Dementia type: unspecified type Qualified Code(s): F03.90 - Unspeci fied dementia, unspecified severity, without behavioral disturbance, psychotic disturbance, mood disturbance, and anxiety
--- NOTE | 2024-09-12 10:48 | Hospitalist Progress Note ---
Date of Service September 12, 2024 Assessment & Plan (1) Acute on chronic heart failure with preserved ejection fraction: (2) Dementia: (3) Unable to care for self: Plan Pt is an 85y/o F with PMHx significant for hypothyroidism, hypercalcemia, hiatal hernia, thoracic aortic ectasia, CKD stage IIIb, HFpEF, CAD s/p CABG, HTN, chronic AF, mild aortic stenosis, history of CVA, GERD, history of multiple lacunar infarcts, osteoarthrosis, scoliosis of lumbar spine, shoulder arthritis, degenerative disc disease, meningioma, encephalomalacia, depression, insomnia, mixed incontinence of urge and stress, history of gastric ulcers, anxiety and cognitive deficits who was brought into the ED on 08/21/24 due to SOB. Per chart review, pt has significant memory issues and multiple recent hospitalizations. Pt w/ clear cognitive deficits on exam - i.e., not remembering what brought her into the hospital, repetitive questioning/forgetfulness. Pt misses doctors' appointments/outpt follow-up appts, forgets to take medications, forgets to eat/drink; strong concern for pt's ability to live alone. #Decompensated acute on chronic HFpEF Pt p/w SOB and CXR noted pulm congestion w/ mild pedal edema on admission TTE: no changed when compared to prior study, LVEF = 60-65% Sx resolved w/ cards recs of po Lasix 20mg daily and Jardiance 10mg daily; weight remains stable #Stroke r/o --> Pt c/o blurry vision in L eye on evening of 08/31. CT head negative. D/w neuro on 09/01, recs are CTA head/neck, MRI brain. Increase rosuvastatin to 20mg with goal of 40mg daily. Reviewed imaging - no evidence of acute infarct, no significant stenosis. Recommend eval for TAM as OP. A1c 5.8% and LDL 94. Likely chronic issue w/ blurry L eye. #Moderate dementia w/ agitation and anxiety Clear cognitive deficits on exam as per above; has case open with [facility] Pt misses doctors' appointments, forgets to take medications/eat/drink (very poor historian) Strong concerns regarding pt's ability to live alone -Reinforced by PT/OT as pt exhibits poor safety awareness -5 repeat admissions in the past 6 months; MOCA Pt is a safety risk to be d/c home at this time given very poor memory, inability to take care of self and minimal support at home -PT/OT recommending SNF/assisted-living placement Pt's brother, Elijah, now wants her to return home to her independent living per previous provider discussion w/ him -Pt's brother reportedly lives in [place], [place] (83 mi away) -HH services previously denied based on safety of pt at home alone Waiting to hear back from [facility] to determine next steps w/ dispo planning; ? [facility] for respite stay until able to get caregivers arranged #Chronic AFib Metoprolol dose was decreased to 25mg 2/2 bradycardia Continue Eliquis #Hypothyroidism On Synthroid #GERD On Protonix #HLD On statin #History of CAD s/p CABG #History of CVA On Plavix, statin and Eliquis #CKD stage IIIb Cr stable on repeat labs done 09/11 Variable Cr per outpt chart review (likely d/t poor monitoring) --> baseline anywhere b/n 1.3-1.7 since Feb 2023 Avoid nephrotoxic agents as able #HTN On amlodipine, metoprolol #Depression #Anxiety On buspirone, trazodone #Insomnia On trazodone #Generalized osteoarthritis Continue Tylenol PRN DVT Prophylaxis: Deana PCP: Gilbert Calloway MD Disposition: Uncertain d/c plans at this time as per above, working w/ CM Patient seen in collaboration with Dr. Mendoza. Please see addendum. I spent a total of 30 minutes coordinating, documenting, and providing care for this patient excluding time spent in the performance of separately billed services or time spent by another provider/QHP. This included personally reviewing all current laboratories and imaging studies, medical reconciliation, outpatient chart review and discussion with specialists. This chart was completed in part utilizing Speech Voice Recognition Software. Grammatical errors, random word insertions, pronoun errors, and incomplete sentences are an occasional consequence of this system due to software limitations, ambient noise, and hardware issues. Any formal questions or concerns about the content, text, or information contained within the body of this dictation should be directly addressed to the provider for clarification. Admission and Anticipated Discharge Date Admission Date: August 21, 2024 Supervising Physician Co-Signing Physician Notes pt was not seen personally. Subjective Patient seen and examined in room N387-2. Still complaining of nausea but no vomiting. Going to try eating some breakfast. Review of Systems Review of Systems: At least ten systems reviewed and negative, except as noted in the subjective section. Physical Exam Physical Exam: General/Neuro: Elderly F, NAD, laying down in bed, A&O to direct questioning but frequently forgetful/repetitive questioning, remains cooperative but quite anxious regarding her care/dispo plans, impaired memory/decision-making HEENT: Normocephalic, atraumatic, external ear and nose normal, oropharynx moist Respiratory: Normal respiratory effort, lungs CTAB, no accessory muscle use Cardiovascular: RRR, normal peripheral pulses, no BLE edema Abdomen/GI: Normal bowel sounds, soft, nontender to palpation in all quadrants Extremities/MSK: No cyanosis or clubbing, extremities motor strength intact, moves all extremities Results & Data Results & Data Vital Signs (Past 12 Hours) Vital Signs Temp Pulse Resp BP Pulse Ox O2 Del Method 09/12/24 07:22 Room Air 09/12/24 06:56 36.4 C L 78 16 160/71 H 97 Room Air (2) Dementia Dementia behavioral or psychological symptom: unspecified whether behavioral, psychotic, or mood disturbance or anxiety Dementia severity: unspecified severity Dementia type: unspecified type Qualified Code(s): F03.90 - Unspecified dementia, unspecified severity, without behavioral disturbance, psychotic disturbance, mood disturbance, and anxiety
[2024-09-13] MEDS: ONDANSETRON 4 MG OD TAB PO PRN (07:40)
--- NOTE | 2024-09-14 10:02 | Hospitalist Progress Note ---
Date of Service September 14, 2024 Assessment & Plan (1) Acute on chronic heart failure with preserved ejection fraction: (2) Dementia: (3) Unable to care for self: Plan Pt is an 85y/o F with PMHx significant for noncompliance, hypothyroidism, hypercalcemia, hiatal hernia, thoracic aortic ectasia, CKD stage IIIb, HFpEF, CAD s/p CABG, HTN, chronic AF, mild aortic stenosis, history of CVA, GERD, history of multiple lacunar infarcts, osteoarthrosis, scoliosis of lumbar spine, shoulder arthritis, degenerative disc disease, meningioma, encephalomalacia, depression, insomnia, mixed incontinence of urge and stress, history of gastric ulcers, anxiety and cognitive deficits who was brought into the ED on 08/21/24 due to SOB. Decompensated acute on chronic HFpEF: Pt p/w SOB and CXR noted pulm congestion w/ mild pedal edema on admission TTE: no changed when compared to prior study, LVEF = 60-65% Sx resolved w/ cards recs of po Lasix 20mg daily and Jardiance 10mg daily; weight remains stable Stroke r/o: -No infarct noted on imaging Moderate dementia w/ agitation and anxiety: -Clear cognitive deficits on exam as per above; has case open with [facility] -Pt misses doctors' appointments, forgets to take medications/eat/drink (very poor historian) -Pt is a safety risk to be d/c home at this time given very poor memory, inability to take care of self and minimal support at home -PT/OT recommending SNF/assisted-living placement -Pt's brother, Elijah, now wants her to return home to her independent living per previous provider discussion w/ him -HH services previously denied based on safety of pt at home alone AF/HLD: -Metoprolol dose was decreased to 25mg 2/2 bradycardia -Continue Eliquis/statin/metoprolol/norvasc Hypothyroidism: -On Synthroid GERD: -On Protonix History of CAD s/p CABG/CVA: -On Plavix, statin and Eliquis #CKD stage IIIb: -At baseline Depression/Anxiety/Insomnia: On buspirone, trazodone DVT Prophylaxis: Eliquis Disposition: Waiting to hear back from [facility] to determine next steps w/ dispo p iddier; ? [facility] for respite stay until able to get caregivers arranged I spent a total of 25 minutes coordinating, documenting, and providing care for this patient excluding time spent in the performance of separately billed services or time spent by another provider/QHP. This included personally reviewing all current laboratories and imaging studies, medical reconciliation, outpatient chart review and discussion with specialists. Admission and Anticipated Discharge Date Admission Date: August 21, 2024 Supervising Physician Co-Signing Physician Notes pt was not seen personally. Subjective Pt seen and examined. NAD - denies any complaints; no issues overnight per nursing Review of Systems Review of Systems: All systems reviewed & are unremarkable except as noted in HPI & below Physical Exam Physical Exam: General/Neuro: Elderly F, NAD, laying down in bed, A&O to direct questioning but frequently forgetful/repetitive questioning, remains cooperative but quite anxious regarding her care/dispo plans, impaired memory/decision-making HEENT: Normocephalic, atraumatic, external ear and nose normal, oropharynx moist Respiratory: Normal respiratory effort, lungs CTAB, no accessory muscle use Cardiovascular: RRR, normal peripheral pulses, no BLE edema Abdomen/GI: Normal bowel sounds, soft, nontender to palpation in all quadrants Extremities/MSK: No cyanosis or clubbing, extremities motor strength intact, mov es all extremities Results & Data Results & Data Vital Signs (Past 12 Hours) Vital Signs Temp Pulse Resp BP Pulse Ox O2 Del Method 09/14/24 06:51 36.6 C 73 16 111/73 97 Room Air Diagnostic Findings Laboratory Results WBC 5.59 K/ul (4.8-10.8) 09/11/24 07:19 RBC 4.32 M/uL (4.20-5.40) 09/11/24 07:19 Hgb 12.8 g/dl (12.0-16.0) 09/11/24 07:19 Hct 38.8 % (37.0-47.0) 09/11/24 07:19 MCV 89.8 fL (80.0-100.0) 09/11/24 07:19 MCH 29.6 pg (25.0-34.0) 09/11/24 07:19 MCHC 33.0 g/dL (32.0-36.0) 09/11/24 07:19 RDW Std Deviation 48.0 fL (36.4-46.3) H 09/11/24 07:19 RDW Coeff of Howie 14.6 % (11.5-14.5) H 09/11/24 07:19 Plt Count 153 K/uL (130-400) 09/11/24 07:19 MPV 10.1 fL (9.4-12.4) 09/11/24 07:19 Immature Gran % (Auto) 0.2 % 08/22/24 05:31 Neut % (Auto) 54.1 % 08/22/24 05:31 Lymph % (Auto) 27.0 % 08/22/24 05:31 [place] % (Auto) 13.3 % 08/22/24 05:31 Eos % (Auto) 4.6 % 08/22/24 05:31 Baso % (Auto) 0.8 % 08/22/24 05:31 Neut # (Auto) 3.38 K/uL (1.40-6.50) 08/22/24 05:31 Lymph # (Auto) 1.69 K/uL (1.20-3.40) 08/22/24 05:31 [place] # (Auto) 0.83 K/uL (0.11-0.59) H 08/22/24 05:31 Eos # (Auto) 0.29 K/uL (0.00-0.50) 08/22/24 05:31 Baso # (Auto) 0.05 K/uL (0.00-0.20) 08/22/24 05:31 Immature Gran # (Auto) 0.01 K/uL (0.01-0.20) 08/22/24 05:31 Sodium 140 mmol/L (136-145) 09/11/24 07:19 Potassium 3.7 mmol/L (3.5-5.1) 09/11/24 07:19 Chloride 107 mmol/L (98-107) 09/11/24 07:19 Carbon Dioxide 26 mmol/L (21-32) 09/11/24 07:19 Anion Gap 7 (3-11) 09/11/24 07:19 BUN 25 mg/dl (6-23) H 09/11/24 07:19 Creatinine 1.36 mg/dl (0.6-1.2) H 09/11/24 07:19 Est Cr Clr Drug Dosing 26.6 ml/min 09/11/24 07:19 eGFR 37.70 09/11/24 07:19 BUN/Creatinine Ratio 18.4 (10-20) 09/11/24 07:19 Glucose 92 mg/dl (70-99(Fasting)) 09/11/24 07:19 POC Glucose 184 mg/dl (70-99) H 08/31/24 13:05 Estimat Average Glucose 120 mg/dl 09/02/24 05:48 Hemoglobin A1c 5.8 % (4.5-5.6) H 09/02/24 05:48 Calcium 10.2 mg/dl (8.6-10.3) 09/11/24 07:19 Phosphorus 4.4 mg/dl (2.5-4.9) 08/24/24 07:41 Magnesium 2.2 mg/dl (1.7-2.4) 08/31/24 06:04 Total Bilirubin 0.8 mg/dl (0.2-1.0) 08/21/24 19:04 AST 18 U/L (13-39) 08/21/24 19:04 ALT 18 U/L (7-52) 08/21/24 19:04 Alkaline Phosphatase 67 U/L (34-104) 08/21/24 19:04 Troponin I High Sens 10.2 pg/ml (0-14) 08/22/24 05:31 B-Natriuretic Peptide 415 pg/ml (0-100) H 08/21/24 19:04 Total Protein 7.2 gm/dl (6.0-8.3) 08/21/24 19:04 Albumin 3.7 gm/dl (3.4-5.0) 08/21/24 19:04 Globulin 3.5 gm/dl (2.5-4.0) 08/21/24 19:04 Albumin/Globulin Ratio 1.1 (0.9-2) 08/21/24 19:04 Triglycerides 63 mg/dl (0-150) 09/02/24 05:48 Cholesterol 159 mg/dl (0-200) 09/02/24 05:48 LDL Cholesterol, Calc 94 mg/dl 09/02/24 05:48 VLDL Cholesterol, Calc 13 mg/dl (0-30) 09/02/24 05:48 HDL Cholesterol 52 mg/dl 09/02/24 05:48 Cholesterol/HDL Ratio 3.1 (0-5) 09/02/24 05:48 Procalcitonin 0.04 ng/ml (0-0.5) 08/22/24 05:31 Urine Color Yellow 08/21/24 19:04 Urine Appearance Clear (Clear) 08/21/24 19:04 Urine pH 8.0 (4.5-7.5) H 08/21/24 19:04 Ur Specific Maiden 1.016 (1.000-1.030) 08/21/24 19:04 Urine Protein Negative (Negative) 08/21/24 19:04 Urine Glucose (UA) Negative (Negative) 08/21/24 19:04 Urine Ketones Negative (Negative) 08/21/24 19:04 Urine Blood Negative (Negative) 08/21/24 19:04 Urine Nitrite Negative (Negative) 08/21/24 19:04 Urine Bilirubin Negative (Negative) 08/21/24 19:04 Urine Urobilinogen Negative (Negative) 08/21/24 19:04 Ur Leukocyte Esterase Trace (Negative) H 08/21/24 19:04 Urine WBC (Auto) 0-5 /hpf (0-5) 08/21/24 19:04 Urine RBC (Auto) 0-2 /hpf (0-2) 08/21/24 19:04 U Hyaline Cast (Auto) 0-2 /lpf (0-2) 08/21/24 19:04 U Epithel Cells (Auto) 0-2 /hpf (0-2) 08/21/24 19:04 Urine Bacteria (Auto) None Seen (None Seen) 08/21/24 19:04 Urine Comment 08/21/24 19:04 Impressions Chest X-Ray 08/21/24 19:44 Exam(s): XR CXR 1 VIEW EXAM: XR Chest, 1 View CLINICAL HISTORY: Dyspnea. TECHNIQUE: Frontal view of the chest. COMPARISON: Portable chest single view 07/25/2024 FINDINGS: Lungs: Reticulonodular interstitial changes in the perihilar regions and bilateral lower lobes, new from the previous examination. Pleural space: Unremarkable. No pneumothorax. No large pleural effusion. Heart: Cardiomegaly, more prominent from the previous examination, but presumed accentuated by portable oblique technique. Surgical clips consistent with prior CABG. Mediastinum: No significant tracheal deviation, accounting for obliquity. Bones/joints: Intact sternal hardware. Bilateral shoulder arthroplasties. No acute fracture. IMPRESSION: Reticulonodular interstitial changes in the perihilar regions and bilateral lower lobes, new from the previous examination. Suspect a component of interstitial vascular congestion. Interstitial infection is considered less likely. No pleural effusion or pneumothorax. Electronically signed by: Feliberto Palomino MD 08/21/24 23:[address] 08/31/24 16:36 EXAMINATION: Head CT without CLINICAL HISTORY: Left eye blurry, rule out stroke PRIORS: 03/18/2024 TECHNIQUE: Contiguous axial images were obtained through the head without the use of intravenous contrast. Sagittal and coronal reformations are supplied. FINDINGS: Mild parenchymal volume loss noted with small vessel occlusive disease rashid-white differentiation is preserved. No edema or midline shift. No intra-axial or extra-axial hemorrhage. Ventricles are normal in size and configuration. Brainstem and cerebellum have a normal appearance. Calvarium unremarkable. Paranasal sinuses and mastoid air cells are well-pneumatized. Globes are intact. No retrobulbar abnormality. IMPRESSION: No CT evidence of an acute intracranial abnormality. If clinical concern warrants, brain MRI could be considered if appropriate. Electronically signed by Katherine Abraham 08-31-2024 6:28 PM Brain MRI 09/01/24 11:56 MR brain wo con CLINICAL HISTORY: stroke w/u COMPARISON STUDY: 07/18/[address] scan yesterday. FINDINGS: There is motion artifact. No restricted diffusion seen to suggest acute infarction. No mass effect, midline shift, or hydrocephalus. 1.2 cm anterior medial left frontal meningioma is stable. Stable severe chronic small vessel ischemic changes. IMPRESSION: No evidence of acute infarction. Otherwise as described. ACT 112: Negative or not required by law. Electronically signed by: Raoul Perry M.D. 09/01/2024 4:19 PM Head CTA 09/01/24 11:56 CT ANGIOGRAM OF THE BRAIN COMBO CLINICAL HISTORY: Strokelike symptoms. COMPARISON STUDY: CT of the brain dated 08/31/2024. CT angiogram of the brain dated 07/13/2022. MRI of the brain dated 09/01/2024. TECHNIQUE: Unenhanced axial CT scan of the brain is performed. Subsequently, following the IV administration of 118 cc of Optiray 320, CT angiogram of the brain was performed from the skull base to the vertex. Images are reviewed in the axial, sagittal, and coronal planes. 3-D MIPS images are created and assessed. IV contrast was administered without complication. A dose lowering technique was utilized adhering to the principles of ALARA. CT DOSE: 1102.5 mGy.cm FINDINGS: Brain parenchyma: There is age-related involutional change noting moderate subcortical and periventricular microangiopathic disease. There is no hemorrhage, mass effect, or evidence of acute territorial ischemia by CT criteria. There there is a 1.4 cm meningioma along the frontal convexity. No additional enhancing lesion is suggested on these angiographic phase images. No extra-axial fluid collection is seen. There is a small chronic lacunar infarct in the right cerebellar hemisphere. Rashid-white matter differentiation is preserved. Ventricles, sulci, and cisterns: Prominent secondary to involutional change. CT angiogram of the brain: There is atherosclerotic calcification of the cavernous carotid and vertebral arteries. The internal carotid arteries at the skull base are patent, as are the anterior and middle cerebral arteries. The vertebrobasilar system and posterior cerebral arteries are widely patent. The vertebral arteries are codominant. There is a right posterior communicating artery. There are 2 left posterior cerebral arteries. There is no aneurysm, high-grade stenosis, or focal vessel cutoff identified throughout the intracranial circulation. Dural sinuses: Clear as visualized. Orbits: The bony orbits are intact. The orbital contents are normal as visualized noting bilateral ocular lens implants. Sinuses and mastoids: Mild mucosal thickening is noted in the left sphenoid sinus and there is trace mucosal thickening in the right maxillary antrum. The remaining paranasal sinuses are clear. There are trace mastoid effusions. Calvarium: Unremarkable. IMPRESSION: 1. There is no hemorrhage, mass effect, or evidence of acute territorial ischemia by CT criteria. 2. Unremarkable CT angiogram of the brain. 3. A 1.4 cm meningioma is seen along the left frontal convexity. ACT 112: Negative or not required by law. Electronically signed by: Avel Calero M.D. 09/01/2024 1:52 PM Neck CTA 09/01/24 11:56 HISTORY: Stroke TECHNIQUE: CT angiography of the neck was performed. Coronal and sagittal reformats were created. IV CONTRAST: 100 mL of OMNIPAQUE 300 COMPARISON: None FINDINGS: CTA NECK: Right carotid: No hemodynamically significant stenosis. Left carotid: No hemodynamically significant stenosis. Vertebrobasilar system: No hemodynamically significant stenosis. Aortic arch and subclavian arteries: No hemodynamically significant stenosis. Nonvascular structures: Unremarkable. Stenosis ranges are derived using NASCET criteria. IMPRESSION: No large vessel occlusion or hemodynamically significant stenosis in the neck. For intracranial assessment, please refer to separately dictated CTA head report Electronically signed by Rodo Santoro 09-01-2024 7:57 PM (2) Dementia Dementia behavioral or psychological symptom: unspecified whether behavioral, psychotic, or mood disturbance or anxiety Dementia severity: unspecified severity Dementia type: unspecified type Qualified Code(s): F03.90 - Unspecified dementia, unspecified severity, without behavioral disturbance, psychotic disturbance, mood disturbance, and anxiety
--- NOTE | 2024-09-15 10:45 | Hospitalist Progress Note ---
Date of Service September 15, 2024 Assessment & Plan (1) Acute on chronic heart failure with preserved ejection fraction: (2) Dementia: (3) Unable to care for self: Plan 85 year old female with PMH significant for noncompliance, hypothyroidism, hypercalcemia, hiatal hernia, thoracic aortic ectasia, CKD stage IIIb, HFpEF, CAD s/p CABG, HTN, chronic AF, mild aortic stenosis, history of CVA, GERD, history of multiple lacunar infarcts, osteoarthrosis, scoliosis of lumbar spine, shoulder arthritis, degenerative disc disease, meningioma, encephalomalacia, depression, insomnia, mixed incontinence of urge and stress, history of gastric ulcers, anxiety and cognitive deficits who was brought into the ED on 08/21/24 due to SOB and is admitted awaiting 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 Decompensated acute on chronic HFpEF Pt presented with SOB and CXR noted pulmonary congestion with mild pedal edema on admission TTE: no changed when compared to prior study, LVEF = 60-65% Sx resolved w/ cards recs of po Lasix 20mg daily and Jardiance 10mg daily; weight remains stable Stroke r/o No infarct noted on imaging Moderate dementia w/ agitation and anxiety Clear cognitive deficits on admitting exam; has case open with [facility] Pt misses doctors' appointments, forgets to take medications/eat/drink (very poor historian) Pt is a safety risk to be d/c home at this time given very poor memory, inability to take care of self and minimal support at home PT/OT recommending SNF/assisted-living placement Pt's brother, Elijah, now wants her to return home to her independent living per previous provider discussion w/ him HH services previously denied based on safety of pt at home alone Atrial fibrillation Metoprolol dose was decreased to 25mg due to bradycardia Continue Eliquis and metoprolol Hypothyroidism Continue Synthroid GERD Continue Protonix History of CAD s/p CABG/CVA Hyperlipidemia Hypertension Continue Plavix, statin, amlodipine CKD stage IIIb Creat 1.36 on 09/11 CMP ordered for 09/17 Depression/Anxiety/Insomnia Continue buspirone and trazodone DVT Prophylaxis: On Eliquis Code Status: FULL CODE PCP: Gilbert Calloway Disposition: CM notes reviewed: awaiting response from [facility] for respite/short term stay while [facility] is working on waiver caregivers at home I spent a total of 45 minutes coordinating, documenting and providing care for this patient excluding time spent in the performance of separately billed services or time spent by another provider/QHP. Admission and Anticipated Discharge Date Admission Date: August 21, 2024 Supervising Physician Co-Signing Physician Notes pt was not seen personally. Subjective Patient seen sitting up in her chair Denies acute concerns Denies chest pain, SOB, abdominal pain, N/V/D Review of Systems Review of Systems: All systems reviewed & are unremarkable except as noted in Subjective Physical Exam Physical Exam: General/Psych: WD/WN, sitting up in bed, NAD, conversing easily Head: normocephalic, atraumatic Eyes: normal inspection, PERRL, conjunctivae pink ENT: external ear and nose normal, oropharynx normal Neck: normal visual inspection, trachea midline Respiratory: normal respiratory effort, lungs clear to auscultation, no wheeze/rales/rhonchi, no accessory muscle use Cardiovascular: regular rate and rhythm, no murmur/rub/gallop, no JVD Extremities: no cyanosis or clubbing, normal peripheral pulses, no BLE edema Abdomen/GI: normal bowel sounds, soft, nontender Neurologic/MSK: A+Ox3, motor strength 5/5, moves all extremities Skin: no rashes, normal color, warm and dry Results & Data Results & Data Vital Signs (Past 12 Hours) Vital Signs Temp Pulse Pulse Resp BP Pulse Ox O2 Del Method 09/15/24 08:09 61 09/15/24 08:00 36.7 C 59 L 15 130/80 98 Room Air Medications Administered Current Inpatient Medications Acetaminophen (Acetaminophen 325 Mg Tab) 650 mg PO Q4H PRN PRN Reason: Pain or Fever Stop: 09/21/24 01:34 Last Admin: 09/10/24 00:30 Dose: 650 mg Amlodipine Besylate (Amlodipine Besylate 5 Mg Tab) 5 mg PO QAM [facility] Stop: 09/21/24 08:59 Last Admin: 09/15/24 08:07 Dose: 5 mg Apixaban (Apixaban 2.5 Mg Tab) 2.5 mg PO BID YAN Stop: 09/21/24 08:59 Last Admin: 09/15/24 08:08 Dose: 2.5 mg Buspirone HCl (Buspirone 5 Mg Tab) 5 mg PO TID [facility] Stop: 09/22/24 20:59 Last Admin: 09/15/24 08:06 Dose: 5 mg Calcitriol (Calcitriol 0.25 Mcg Capsule) 0.25 mcg PO [id number] [facility] Stop: 09/21/24 08:59 Last Admin: 09/15/24 08:06 Dose: 0.25 mcg Clopidogrel Bisulfate (Clopidogrel Bisulfate 75 Mg Tab) 75 mg PO QAM [facility] Stop: 09/21/24 08:59 Last Admin: 09/15/24 08:08 Dose: 75 mg Empagliflozin (Empagliflozin 10 Mg Tab) 10 mg PO DAILY [facility] Stop: 09/21/24 12:29 Last Admin: 09/15/24 08:08 Dose: 10 mg Furosemide (Furosemide 20 Mg Tab) [facility] [place] Stop: 09/28/24 08:59 Last Admin: 09/15/24 08:08 Dose: 20 mg Levothyroxine Sodium (Levothyroxine Sodium 75 Mcg Tablet) 75 mcg PO DAILYBB [facility] Stop: 09/21/24 06:29 Last Admin: 09/15/24 06:18 Dose: 75 mcg Melatonin (Melatonin 3 Mg Tab) 9 mg PO [facility] Stop: 09/27/24 20:59 Last Admin: 09/14/24 21:01 Dose: 9 mg Metoprolol Succinate (Metoprolol Succ 25mg Ext Rel Tab) 25 [facility] [place] Stop: 09/21/24 08:59 Last Admin: 09/15/24 08:07 Dose: 25 mg Nystatin (Nystatin Powder 15gm Btl) 1 appln EXT BID PRN PRN Reason: Rash Stop: 09/28/24 13:30 Ondansetron HCl (Ondansetron Inj 2 Mg/Ml 2 Ml Vial) 4 mg IV Q6H PRN PRN Reason: Nausea And Vomiting Stop: 09/21/24 10:03 Last Admin: 09/03/24 08:08 Dose: 4 mg Ondansetron HCl (Ondansetron 4 Mg Od Tab) 4 mg PO Q4H PRN PRN Reason: Nausea Stop: 10/11/24 07:42 Last Admin: 09/14/24 11:09 Dose: 4 mg Pantoprazole Sodium (Pantoprazole 40 Mg Tab) 40 mg PO [facility] Stop: 09/21/24 08:59 Last Admin: 09/15/24 08:08 Dose: 40 mg Polyethylene Glycol (Polyethylene (Miralax) 17 Gm Pack) 17 gm PO DAILY PRN PRN Reason: Constipation Stop: 09/21/24 01:34 Rosuvastatin Calcium (Rosuvastatin Calcium 20 Mg Tab) 20 mg PO [facility] Stop: 10/01/24 20:59 Last Admin: 09/14/24 21:03 Dose: 20 mg Trazodone HCl (Trazodone Hcl 100 Mg Tab) 100 mg PO [facility] Stop: 09/27/24 20:59 Last Admin: 09/14/24 21:01 Dose: 100 mg (2) Dementia Dementia behavioral or psychological symptom: unspecified whether behavioral, psychotic, or mood disturbance or anxiety Dementia severity: unspecified severity Dementia type: unspecified type Qualified Code(s): F03.90 - Unspe cified dementia, unspecified severity, without behavioral disturbance, psychotic disturbance, mood disturbance, and anxiety
[2024-09-16 07:35] VITALS: RESP 16
--- NOTE | 2024-09-16 08:26 | Hospitalist Progress Note ---
Date of Service September 16, 2024 Assessment & Plan (1) Chronic heart failure with preserved ejection fraction (HFpEF): (2) Dementia: (3) Unable to care for self: (4) Chronic atrial fibrillation: (5) GERD (gastroesophageal reflux disease): (6) Hypothyroidism: (7) CAD (coronary artery disease): (8) Hypertension: (9) Chronic kidney disease stage 3: (10) Depression with anxiety: Plan 85 year old female with PMH significant for noncompliance, hypothyroidism, hypercalcemia, hiatal hernia, thoracic aortic ectasia, CKD stage IIIb, HFpEF, CAD s/p CABG, HTN, chronic AF, mild aortic stenosis, history of CVA, GERD, history of multiple lacunar infarcts, osteoarthrosis, scoliosis of lumbar spine, shoulder arthritis, degenerative disc disease, meningioma, encephalomalacia, depression, insomnia, mixed incontinence of urge and stress, history of gastric ulcers, anxiety and cognitive deficits who was brought into the ED on 08/21/24 due to SOB and is admitted awaiting alf placement. Chronic HFpEF Pt presented with SOB and CXR noted pulmonary congestion with mild pedal edema on admission and was found to be in acute on chronic HF TTE: no changed when compared to prior study, LVEF = 60-65% Sx resolved w/ cards recs of po Lasix 20mg daily and Jardiance 10mg daily; weight remains stable Stroke r/o No infarct noted on imaging Moderate dementia w/ agitation and anxiety Clear cognitive deficits on admitting exam; has case open with [facility] Pt misses doctors' appointments, forgets to take medications/eat/drink (very poor historian) Pt is a safety risk to be d/c home at this time given very poor memory, inability to take care of self and minimal support at home PT/OT recommending SNF/assisted-living placement Pt's brother, Elijah, now wants her to return home to her independent living per previous provider discussion w/ him HH services previously denied based on safety of pt at home alone Atrial fibrillation Metoprolol dose was decreased to 25mg due to bradycardia Continue Eliquis and metoprolol Hypothyroidism Continue Synthroid GERD Continue Protonix History of CAD s/p CABG/CVA Hyperlipidemia Hypertension Continue Plavix, statin, amlodipine CKD stage IIIb Creat 1.36 on 09/11 CMP ordered for 09/17 Depression/Anxiety/Insomnia Continue buspirone and trazodone DVT Prophylaxis: On Eliquis Code Status: FULL CODE PCP: Gilbert Calloway Disposition: CM notes reviewed: awaiting response from [facility] for respite/short term stay while [facility] is working on waiver caregivers at home I spent a total of 30 minutes coordinating, documenting and providing care for this patient excluding time spent in the performance of separately billed services or time spent by another provider/QHP. Admission and Anticipated Discharge Date Admission Date: August 21, 2024 Supervising Physician Co-Signing Physician Notes pt was not seen personally. Subjective Patient seen sitting up in her chair Denies acute concerns Denies chest pain, SOB, abdominal pain, N/V/D Review of Systems Review of Systems: All systems reviewed & are unremarkable except as noted in Subjective Physical Exam Physical Exam: General/Psych: WD/WN, sitting up in bed, NAD, conversing easily Head: normocephalic, atraumatic Eyes: normal inspection, PERRL, conjunctivae pink ENT: external ear and nose normal, oropharynx normal Neck: normal visual inspection, trachea midline Respiratory: normal respiratory effort, lungs clear to auscultation, no wheeze/rales/rhonchi, no accessory muscle use Cardiovascular: regular rate and rhythm, no murmur/rub/gallop, no JVD Extremities: no cyanosis or clubbing, normal peripheral pulses, no BLE edema Abdomen/GI: normal bowel sounds, soft, nontender Neurologic/MSK: A+Ox3, motor strength 5/5, moves all extremities Skin: no rashes, normal color, warm and dry Results & Data Results & Data Vital Signs (Past 12 Hours) Vital Signs Temp Pulse Resp BP Pulse Ox O2 Del Method 09/16/24 07:33 36.8 C 76 16 153/89 H 97 Room Air Medications Administered Current Inpatient Medications Acetaminophen (Acetaminophen 325 Mg Tab) 650 mg PO Q4H PRN PRN Reason: Pain or Fever Stop: 09/21/24 01:34 Last Admin: 09/10/24 00:30 Dose: 650 mg Amlodipine Besylate (Amlodipine Besylate 5 Mg Tab) 5 mg PO QAM [facility] Stop: 09/21/24 08:59 Last Admin: 09/15/24 08:07 Dose: 5 mg Apixaban (Apixaban 2.5 Mg Tab) 2.5 mg PO BID [facility] Stop: 09/21/24 08:59 Last Admin: 09/15/24 20:32 Dose: 2.5 mg Buspirone HCl (Buspirone 5 Mg Tab) 5 mg PO TID [facility] Stop: 09/22/24 20:59 Last Admin: 09/15/24 20:32 Dose: 5 mg Calcitriol (Calcitriol 0.25 Mcg Capsule) 0.25 mcg PO MoWeFr@0900 [facility] Stop: 09/21/24 08:59 Last Admin: 09/15/24 08:06 Dose: 0.25 mcg Clopidogrel Bisulfate (Clopidogrel Bisulfate 75 Mg Tab) [facility] [place] Stop: 09/21/24 08:59 Last Admin: 09/15/24 08:08 Dose: 75 mg Empagliflozin (Empagliflozin 10 Mg Tab) 10 mg PO DAILY [facility] Stop: 09/21/24 12:29 Last Admin: 09/15/24 08:08 Dose: 10 mg Furosemide (Furosemide 20 Mg Tab) [facility] [place] Stop: 09/28/24 08:59 Last Admin: 09/15/24 08:08 Dose: 20 mg Levothyroxine Sodium (Levothyroxine Sodium 75 Mcg Tablet) 75 mcg PO DAILYBB [facility] Stop: 09/21/24 06:29 Last Admin: 09/16/24 06:05 Dose: 75 mcg Melatonin (Melatonin 3 Mg Tab) 9 mg PO HS [facility] Stop: 09/27/24 20:59 Last Admin: 09/15/24 20:31 Dose: 9 mg Metoprolol Succinate (Metoprolol Succ 25mg Ext Rel Tab) 25 [facility] [place] Stop: 09/21/24 08:59 Last Admin: 09/15/24 08:07 Dose: 25 mg Nystatin (Nystatin Powder 15gm Btl) 1 appln EXT BID PRN PRN Reason: Rash Stop: 09/28/24 13:30 Ondansetron HCl (Ondansetron Inj 2 Mg/Ml 2 Ml Vial) 4 mg IV Q6H PRN PRN Reason: Nausea And Vomiting Stop: 09/21/24 10:03 Last Admin: 09/03/24 08:08 Dose: 4 mg Ondansetron HCl (Ondansetron 4 Mg Od Tab) 4 mg PO Q4H PRN PRN Reason: Nausea Stop: 10/11/24 07:42 Last Admin: 09/14/24 11:09 Dose: 4 mg Pantoprazole Sodium (Pantoprazole 40 Mg Tab) 40 mg PO AMHS [facility] Stop: 09/21/24 08:59 Last Admin: 09/15/24 20:32 Dose: 40 mg Polyethylene Glycol (Polyethylene (Miralax) 17 Gm Pack) 17 gm PO DAILY PRN PRN Reason: Constipation Stop: 09/21/24 01:34 Rosuvastatin Calcium (Rosuvastatin Calcium 20 Mg Tab) 20 mg PO HS [facility] Stop: 10/01/24 20:59 Last Admin: 09/15/24 20:31 Dose: 20 mg Trazodone HCl (Trazodone Hcl 100 Mg Tab) 100 mg PO [facility] Stop: 09/27/24 20:59 Last Admin: 09/15/24 20:32 Dose: 100 mg (2) Dementia Dementia behavioral or psychological symptom: unspecified whether behavioral, psychotic, or mood disturbance or anxiety Dementia severity: unspecified severity Dementia type: unspecified type Qualified Code(s): F03.90 - Unspecified dementia, unspecified severity, without behavioral disturbance, psychotic disturbance, mood disturbance, and anxiety (5) GERD (gastroesophageal reflux disease) Esophagitis presence: without esophagitis Qualified Code(s): K21.9 - Gastro- esophageal reflux disease without esophagitis (6) Hypothyroidism Hypothyroidism type: unspecified Qualified Code(s): E03.9 - Hypothyroidism, unspecified (7) CAD (coronary artery disease) Associated angina: without angina Coronary Disease-Associated Artery/Lesion type: [place] artery [place] vs. transplanted heart: [place] heart Qualified Code(s): I25.10 - Atherosclerotic heart disease of [place] coronary artery without angina pectoris (8) Hypertension Hypertension type: unspecified Qualified Code(s): I10 - Essential (primary) hypertension
[2024-09-17 08:32] LABS: Alanine Aminotransferase 5.0 U/L (7-52); Albumin Globulin Ratio 1.3 (0.9-2); Alkaline Phosphatase 50.0 U/L (34-104); Anion Gap 4.0 (3-11); Bilirubin,Total 0.8 mg/dl (0.2-1.0); Blood Urea Nitrogen 23.0 mg/dl (6-23); Calcium 9.8 mg/dl (8.6-10.3); Carbon Dioxide 31.0 mmol/L (21-32); Chloride 105.0 mmol/L (98-107); Creatinine Clr Calc Pharmacy 26.4 ml/min; Globulin 2.8 gm/dl (2.5-4.0); Glucose 91.0 mg/dl (70-99(Fasting)); Potassium 3.6 mmol/L (3.5-5.1); Sodium 140.0 mmol/L (136-145); Total Protein 6.4 gm/dl (6.0-8.3)
[2024-09-17 08:41] LABS: Hematocrit (blood only) 35.9 % (37.0-47.0); Hemoglobin 12.0 g/dl (12.0-16.0); Mean Corpuscular Hemoglobin 30.8 pg (25.0-34.0); Mean Corpuscular Volume 92.1 fL (80.0-100.0); Platelet Count 133 K/uL (130-400); RDW Standard Deviation 49.1 fL (36.4-46.3); Red Blood Count 3.90 M/uL (4.20-5.40); White Blood Count 5.38 K/ul (4.8-10.8)
--- NOTE | 2024-09-17 12:02 | Hospitalist Progress Note ---
Date of Service September 17, 2024 Assessment & Plan (1) Dementia: (2) Unable to care for self: (3) Chronic heart failure with preserved ejection fraction (HFpEF): (4) Chronic atrial fibrillation: (5) GERD (gastroesophageal reflux disease): (6) Hypothyroidism: (7) CAD (coronary artery disease): (8) Hypertension: (9) Chronic kidney disease stage 3: (10) Depression with anxiety: Plan 85 year old female with PMH significant for noncompliance, hypothyroidism, hypercalcemia, hiatal hernia, thoracic aortic ectasia, CKD stage IIIb, HFpEF, CAD s/p CABG, HTN, chronic AF, mild aortic stenosis, history of CVA, GERD, history of multiple lacunar infarcts, osteoarthrosis, scoliosis of lumbar spine, shoulder arthritis, degenerative disc disease, meningioma, encephalomalacia, depression, insomnia, mixed incontinence of urge and stress, history of gastric ulcers, anxiety and cognitive deficits who was brought into the ED on 08/21/24 due to acute exacerbation of chronic HF and is currently still admitted awaiting snf placement. Moderate dementia w/ agitation and anxiety Clear cognitive deficits on exam Pt misses doctors' appointments, forgets to take medications/eat/drink (very poor historian) Pt is a safety risk to be d/c home at this time given very poor memory, inability to take care of self and minimal support at home PT/OT recommending SNF/assisted-living placement Pt's brother, Elijah, wants her to return home to her independent living Patient has a case opened with the [facility]. They will not take guardianship of patient until she has failed home care (they do not consider services x2 and [facility] at home refusing to take patient due to safety and noncompliance concerns to be failed home care). They will only take guardianship if patient fails waiver services. Patient has a coordinator to arrange this but there has not been an assessment of the home yet to determine hours approved and staffing which can take months to arrange. Case management will contact coordinator and [facility] at time of discharge to inform them so that the home assessment can be completed. Daiana ARREAGA spoke with patient's brother on 09/16 and 09/17 and he is still requesting patient to return to home and understands she does not have any services in place and it could be months until she does. Patient had a discussion with Daiana ARREAGA on 09/16 and assured her that she has friends to assist her with getting groceries. The following day 09/17, patient is now saying that she has no one who can help her get groceries. Therefore, further discussion with patient's brother is needed to see if he can supply her groceries or if he would be agreeable to patient going to SNF. Chronic HFpEF Pt presented with SOB and CXR noted pulmonary congestion with mild pedal edema on admission and was found to be in acute on chronic HF TTE: no changed when compared to prior study, LVEF = 60-65% Sx resolved w/ cards recs of po Lasix 20mg daily and Jardiance 10mg daily; weight remains stable Stroke r/o No infarct noted on admitting imaging Atrial fibrillation Metoprolol dose was decreased to 25mg due to bradycardia Continue Eliquis and metoprolol Hypothyroidism Continue Synthroid GERD Continue Protonix History of CAD s/p CABG/CVA Hyperlipidemia Hypertension Continue Plavix, statin, amlodipine CKD stage IIIb Creat 1.36 on 09/11 CMP ordered for 09/17 Depression/Anxiety/Insomnia Continue buspirone and trazodone DVT Prophylaxis: On Eliquis Code Status: FULL CODE PCP: Gilbert Calloway Disposition: see above I spent a total of 30 minutes coordinating, documenting and providing care for this patient excluding time spent in the performance of separately billed services or time spent by another provider/QHP. Admission and Anticipated Discharge Date Admission Date: August 21, 2024 Supervising Physician Co-Signing Physician Notes Patient seen and examined Agree with findings and plans as detailed by Jeanette FIELD Subjective Patient seen sitting up in her chair Denies acute concerns Denies chest pain, SOB, abdominal pain, N/V/D Review of Systems Review of Systems: All systems reviewed & are unremarkable except as noted in Subjective Physical Exam Physical Exam: General/Psych: WD/WN, sitting up in bed, NAD, conversing easily Head: normocephalic, atraumatic Eyes: normal inspection, PERRL, conjunctivae pink ENT: external ear and nose normal, oropharynx normal Neck: normal visual inspection, trachea midline Respiratory: normal respiratory effort, lungs clear to auscultation, no wheeze/rales/rhonchi, no accessory muscle use Cardiovascular: regular rate and rhythm, no murmur/rub/gallop, no JVD Extremities: no cyanosis or clubbing, normal peripheral pulses, no BLE edema Abdomen/GI: normal bowel sounds, soft, nontender Neurologic/MSK: A+Ox3, motor strength 5/5, moves all extremities Skin: no rashes, normal color, warm and dry Results & Data Results & Data Vital Signs (Past 12 Hours) Vital Signs Temp Pulse Resp BP Pulse Ox O2 Del Method 09/17/24 07:05 36.8 C 74 16 136/81 96 Room Air Medications Administered Current Inpatient Medications Acetaminophen (Acetaminophen 325 Mg Tab) 650 mg PO Q4H PRN PRN Reason: Pain or Fever Stop: 09/21/24 01:34 Last Admin: 09/10/24 00:30 Dose: 650 mg Amlodipine Besylate (Amlodipine Besylate 5 Mg Tab) [facility] [place] Stop: 09/21/24 08:59 Last Admin: 09/17/24 08:30 Dose: 5 mg Apixaban (Apixaban 2.5 Mg Tab) 2.5 mg PO BID [facility] Stop: 09/21/24 08:59 Last Admin: 09/17/24 08:30 Dose: 2.5 mg Buspirone HCl (Buspirone 5 Mg Tab) 5 mg PO TID [facility] Stop: 09/22/24 20:59 Last Admin: 09/17/24 08:29 Dose: 5 mg Calcitriol (Calcitriol 0.25 Mcg Capsule) 0.25 mcg PO MoWeFr@0900 [facility] Stop: 09/21/24 08:59 Last Admin: 09/17/24 08:29 Dose: 0.25 mcg Clopidogrel Bisulfate (Clopidogrel Bisulfate 75 Mg Tab) [facility] [place] Stop: 09/21/24 08:59 Last Admin: 09/17/24 08:29 Dose: 75 mg Empagliflozin (Empagliflozin 10 Mg Tab) 10 mg PO DAILY [facility] Stop: 09/21/24 12:29 Last Admin: 09/17/24 08:30 Dose: 10 mg Furosemide (Furosemide 20 Mg Tab) [facility] [place] Stop: 09/28/24 08:59 Last Admin: 09/17/24 08:29 Dose: 20 mg Levothyroxine Sodium (Levothyroxine Sodium 75 Mcg Tablet) [facility] Stop: 09/21/24 06:29 Last Admin: 09/17/24 05:49 Dose: 75 mcg Melatonin (Melatonin 3 Mg Tab) 9 mg PO [facility] Stop: 09/27/24 20:59 Last Admin: 09/16/24 22:00 Dose: 9 mg Metoprolol Succinate (Metoprolol Succ 25mg Ext Rel Tab) 25 mg PO QAM [facility] Stop: 09/21/24 08:59 Last Admin: 09/17/24 08:30 Dose: 25 mg Nystatin (Nystatin Powder 15gm Btl) 1 appln EXT BID PRN PRN Reason: Rash Stop: 09/28/24 13:30 Ondansetron HCl (Ondansetron Inj 2 Mg/Ml 2 Ml Vial) 4 mg IV Q6H PRN PRN Reason: Nausea And Vomiting Stop: 09/21/24 10:03 Last Admin: 09/03/24 08:08 Dose: 4 mg Ondansetron HCl (Ondansetron 4 Mg Od Tab) 4 mg PO Q4H PRN PRN Reason: Nausea Stop: 10/11/24 07:42 Last Admin: 09/17/24 10:38 Dose: 4 mg Pantoprazole Sodium (Pantoprazole 40 Mg Tab) 40 mg PO [facility] Stop: 09/21/24 08:59 Last Admin: 09/17/24 08:30 Dose: 40 mg Polyethylene Glycol (Polyethylene (Miralax) 17 Gm Pack) 17 gm PO DAILY PRN PRN Reason: Constipation Stop: 09/21/24 01:34 Rosuvastatin Calcium (Rosuvastatin Calcium 20 Mg Tab) 20 mg PO [facility] Stop: 10/01/24 20:59 Last Admin: 09/16/24 20:00 Dose: 20 mg Trazodone HCl (Trazodone Hcl 100 Mg Tab) 100 mg PO [facility] Stop: 09/27/24 20:59 Last Admin: 09/16/24 22:00 Dose: 100 mg (1) Dementia Dementia behavioral or psychological symptom: unspecified whether behavioral, psychotic, or mood disturbance or anxiety Dementia severity: unspecified severity Dementia type: unspecified type Qualified Code(s): F03.90 - Unspecified dementia, unspecified severity, without behavioral disturbance, psychotic disturbance, mood disturbance, and anxiety (5) GERD (gastroesophageal reflux disease) Esophagitis presence: without esophagitis Qualified Code(s): K21.9 - Gastro- esophageal reflux disease without esophagitis (6) Hypothyroidism Hypothyroidism type: unspecified Qualified Code(s): E03.9 - Hypothyroidism, unspecified (7) CAD (coronary artery disease) Associated angina: without angina Coronary Disease-Associated Artery/Lesion type: [place] artery [place] vs. transplanted heart: [place] heart Qualified Code(s): I25.10 - Atherosclerotic heart disease of [place] coronary artery without angina pectoris (8) Hypertension Hypertension type: unspecified Qualified Code(s): I10 - Essential (primary) hypertension
[2024-09-18] MEDS: ZOLPIDEM TARTRATE 5 MG TAB PO STA (03:50)
[2024-09-18 07:11] VITALS: BP 149/80; PULSE 73; TEMP 97.7; O2SAT 98
[2024-09-18 09:37] LABS: Hematocrit (blood only) 37.8 % (37.0-47.0); Hemoglobin 12.6 g/dl (12.0-16.0); Mean Corpuscular Hemoglobin 30.7 pg (25.0-34.0); Mean Corpuscular Volume 92.2 fL (80.0-100.0); Platelet Count 135 K/uL (130-400); RDW Standard Deviation 48.8 fL (36.4-46.3); Red Blood Count 4.10 M/uL (4.20-5.40); White Blood Count 4.90 K/ul (4.8-10.8)
--- NOTE | 2024-09-18 10:52 | Discharge Summary ---
Discharge Summary Date of Service September 18, 2024 Principal Dx & Hospital Course #1 = Principal Diagnosis (1) Acute on chronic heart failure with preserved ejection fraction (HFpEF): (2) Unable to care for self: (3) Moderate dementia with anxiety: Plan Pt is an 85y/o F with PMHx significant for hypothyroidism, hypercalcemia, hiatal hernia, thoracic aortic ectasia, CKD stage IIIb, HFpEF, CAD s/p CABG, HTN, chronic AF, mild aortic stenosis, history of CVA, GERD, history of multiple lacunar infarcts, osteoarthrosis, scoliosis of lumbar spine, shoulder arthritis, degenerative disc disease, meningioma, encephalomalacia, depression, insomnia, mixed incontinence of urge and stress, history of gastric ulcers, anxiety and cognitive deficits who was admitted on 08/21/24 due to an acute CHF exacerbation. Prolonged hospital course due to difficultly with establishing placement. Pt has significant memory issues and multiple recent hospitalizations per chart review. Pt w/ clear cognitive deficits on exam - i.e., not remembering what brought her into the hospital, repetitive questioning/forgetfulness. Pt misses doctors' appointments/outpt follow-up appts, forgets to take medications, forgets to eat/drink; strong concern for pt's ability to live alone. #Decompensated acute on chronic HFpEF Pt presented with SOB and CXR noted pulm congestion w/ mild pedal edema on admission TTE: no changed when compared to prior study, LVEF = 60-65% Sx fully resolved with cards recs of po Lasix 20mg daily and Jardiance 10mg daily; weight remained stable #Moderate dementia with anxiety Pt is a safety risk to be discharged home given very poor memory, inability to take care of self and minimal support at home PT/OT recommending SNF/assisted-living placement; pt's brother, Elijah, wants her to return home to her independent living Patient has a case opened with the [facility] ([facility]). They will not take g uardianship of the patient until she has failed home care (they do not consider services x 2 and [facility] refusing to take the patient due to safety and noncompliance concerns to be failed home care). They will only take guardianship if patient fails waiver services. Patient has a coordinator to arrange this but there has not been an assessment of the home yet to determine hours approved and staffing which can take months to arrange. Case management will contact [facility] at time of discharge to inform them so that the home assessment can be completed. WHITLEY Ahmadi spoke with the patient's brother on 09/16 and 09/17 - he is still requesting that the patient returns home and understands she does not have any services in place and that it could be months until she does. There was some initial concern on 09/17 that the patient did not have anyone to assist her with getting groceries. Patient's bridges and buildings supervisor, Reta, was contacted by WHITLEY Ahmadi on 09/17 and confirmed that the patient receives Me[employer] on Wheels plus she also has aides on Sunday/Sunday whom get her groceries. Patient is being discharged back to her prior living arrangements. #Stroke r/o --> Pt c/o blurry vision in L eye on evening of 08/31. CT head negative. D/w neuro on 09/01, recs are CTA head/neck, MRI brain. Increase rosuvastatin to 20mg with goal of 40mg daily. Reviewed imaging - no evidence of acute infarct, no significant stenosis. Recommend eval for TAM as OP. A1c 5.8% and LDL 94. Likely chronic issue w/ blurry L eye. #Chronic atrial fibrillation Metoprolol dose was decreased to 25mg due to bradycardia Continue Eliquis, reduced metoprolol dose #Hypothyroidism Continue Synthroid #GERD Continue Protonix #History of CAD s/p CABG #History of CVA Continue Plavix, statin and Eliquis #HTN Continue amlodipine #CKD stage IIIb Cr remains stable on repeat labs Variable Cr per OP chart review (likely d/t poor monitoring, medication noncompliance) --> baseline anywhere b/n 1.3-1.7 since Feb 2023 #Depression/anxiety/insomnia Continue buspirone and trazodone PCP: Gilbert Calloway MD Disposition: Pt is being discharged back to prior living arrangement at [facility] (independent apartments); PCP f/u arranged Patient seen in collaboration with Dr. Wilcox. Please see addendum. I spent a total of 58 minutes coordinating, documenting, and providing care for this patient excluding time spent in the performance of separately billed services or time spent by another provider/QHP. This included personally reviewing all current laboratories and imaging studies, medical reconciliation, outpatient chart review and discussion with specialists. This chart was completed in part utilizing Speech Voice Recognition Software. Grammatical errors, random word insertions, pronoun errors, and incomplete sentences are an occasional consequence of this system due to software limitations, ambient noise, and hardware issues. Any formal questions or concerns about the content, text, or information contained within the body of this dictation should be directly addressed to the provider for clarification. Notes For Next Care Provider Recommend outpatient sleep evaluation for TAM Medication Changes From Visit Metoprolol succinate dose decreased to 25mg daily Admission HPI Per Admitting Provider 85-year-old female with past medical history significant for hypothyroidism, hypercalcemia, hiatal hernia, thoracic aortic ectasia, CKD stage IIIb, heart failure with preserved ejection fraction, CAD, status post CABG, hypertension, chronic atrial fibrillation, mild aortic stenosis, history of CVA, GERD, history of multiple lacunar infarcts, osteoarthrosis, scoliosis of lumbar spine, shoulder arthritis, degenerative disc disease, meningioma, encephalomalacia, depression, insomnia, mixed incontinence of urge and stress, history of gastric ulcers, anxiety, cognitive deficits who lives alone was brought in because of shortness of breath. Patient states shortness of breath started today. Says she was short of breath even while resting. Denies any cough. Denies fevers. Denies chest pain. Denies headache. Denies dizziness. No runny nose or sore throat. Appetite is okay. No difficulty swallowing. No nausea. No abdominal pain. Normal bowel and bladder movements. Ambulated okay in the ER. With ambulation she got more short of breath. Patient says when she goes outside she uses walker. Patient recently admitted in July 2024 with shortness of breath and chest pain. Shortness of breath thought to be from recent parainfluenza infection. During her admission office of aging was involved as there was question of patient unsafe to live alone. As per the community health worker home visit today patient seems to be missing appointments. She did not know that she had appointment with PCP today. And patient told that she did not had any food in the house but when community health worker checked in refrigerator and freezer there was plenty of food. CHW when checked she seems to be discharged from [facility] in June. And when she walked to bathroom and came back she was very short of breath and CHW took vitals her blood pressure was elevated. Currently patient is able to tell her name. Knows her date of . Knows that she is in the hospital. Knows current month and year and knows tomorrow is . Hemodynamics are okay currently. Past medical history. As mentioned above Past surgical history. Liposuction. CABG. Colonoscopy. EGD. Repair of retinal tear. Lasering of secondary cataract. Reconstruction of left shoulder joint. Reconstruction of right shoulder joint. Bilateral cataracts. Total abdominal hysterectomy with removal of tubes. Left total hip replacement. Social history. . No smoking. Alcohol occasional. No drug use. Family history. Father had allergies. Father age of 74 from allergic reaction. Brother had CAD, dementia. Mother had CHF. Sister has CAD. Admission Exam Per Admitting Provider General- Not in distress Head- atraumatic Eyes- PERRL. ENT- oropharynx clear Neck- supple, no JVD. Lungs- clear to auscultation mild bibasilar crackles, no wheezing Heart- regular rhythm; no murmur, no gallop. Abdomen- normal bowel sounds, soft, nontender, no distension Extremities- mild pretibial edema, no erythema seen Neuro- alert, oriented x 3; PERRL, no facial palsy; no dysarthria; moves extremities Discharge Exam General/Neuro: Elderly F, NAD, sitting up in bed, A&Ox2 to direct questioning but frequently forgetful/repetitive questioning, remains cooperative but quite anxious regarding her care/dispo plans, impaired memory/decision-making HEENT: Normocephalic, atraumatic, external ear and nose normal, oropharynx moist Respiratory: Normal respiratory effort, lungs CTAB, no accessory muscle use Cardiovascular: RRR, normal peripheral pulses, no BLE edema Abdomen/GI: Normal bowel sounds, soft, nontender to palpation in all quadrants Extremities/MSK: No cyanosis or clubbing, extremities motor strength intact, moves all extremities Updated Medication List Medication Instructions Recorded Confirmed Type amlodipine 5 mg tablet (Norvasc) 5 mg PO QAM #30 tabs 05/21/24 08/21/24 Rx apixaban 2.5 mg tablet (Eliquis) 2.5 mg PO BID #60 tabs 05/21/24 08/21/24 Rx levothyroxine 75 mcg tablet 75 mcg PO DAILYBB #30 tabs 05/21/24 08/21/24 Rx (Synthroid) melatonin 10 mg capsule 10 mg PO HS #30 caps 05/21/24 08/21/24 Rx metoprolol succinate 25 mg 25 mg PO QAM #30 tabs 05/21/24 08/21/24 Rx tablet,extended release 24 hr calcitriol 0.25 mcg capsule 0.25 mcg PO 3XWK 07/16/24 08/21/24 History ferrous fumarate 324 mg (106 mg 324 mg PO QAM 07/16/24 08/21/24 History iron) tablet pantoprazole 40 mg tablet,delayed 40 mg PO AMHS 07/16/24 08/21/24 History release rosuvastatin 10 mg tablet 10 mg PO HS 07/16/24 08/21/24 History trazodone 50 mg tablet 50 mg PO HS 07/16/24 08/21/24 History hydroxyzine HCl 10 mg tablet 10 mg PO TID PRN Anxiety 07/25/24 08/21/24 History acetaminophen 500 mg tablet 500 mg PO TID PRN Pain 08/21/24 08/21/24 History clopidogrel 75 mg tablet 75 mg PO QAM 08/21/24 08/21/24 History gabapentin 100 mg capsule 100 mg PO AMHS 08/21/24 08/21/24 History loperamide 2 mg capsule 2 mg PO QID PRN Diarrhea 08/21/24 08/21/24 History buspirone 5 mg tablet 5 mg PO TID #90 tabs 09/18/24 Rx empagliflozin 10 mg tablet 10 mg PO DAILY #30 tabs 09/18/24 Rx (Jardiance) furosemide 20 mg tablet 20 mg PO QAM #30 tabs 09/18/24 Rx melatonin 3 mg tablet 9 mg (3 x 3 mg) PO HS #90 tabs 09/18/24 Rx Hospital Stay Data Consultations 08/21/24 21:07 ED Decision to Admit Stat 08/31/24 16:38 Consult Neurology Routine Diagnostic Imagining Performed 08/31/24 16:36 CT head/brain wo con Routine 09/01/24 11:56 CT angio head wo/w Routine CT angio neck with con Routine MR brain wo con Routine Discharge Instructions Given to Patient (Per Discharging Provider) Please attend your primary care provider (PCP) hospital discharge follow-up appointment as outlined below. It is extremely important that you attend this appointment in order to continue coordinating your care safely. Date & Time: 09/24/2024 @ 11:10AM Provider: Wilma Varghese DO Location: [facility] Medication Changes: 1. Metoprolol succinate 25mg once daily 2. Jardiance 10mg once daily 3. Furosemide (Lasix) 20mg once daily 4. Buspirone (BuSpar) 5mg three times a day, melatonin at night for sleep Seek medical attention if you have: * temperature above 101F * chest pain or trouble breathing * abdominal pain, nausea, vomiting * diarrhea, dark stools or bloody stools * any unanswered questions or concerns Call 911 if symptoms are severe. Please take good care of yourself. It has been a pleasure taking care of you. If you have any questions regarding your recent hospitalization please contact [facility] and request a [facility] Hospitalist @ [phone]. Total Time Total Time Spent Total Time Spent (In Minutes): 58 Supervising Physician Co-Signing Physician Notes Patient seen and examined Agree with findings and plans as detailed by Debora Mims PA-C
== END 2024-09-18 14:06 | disposition home or self-care (01) | DRG 291 ==
LOC: ED 18:52 → SUATTDRO 23:33 → 2E 23:33 → 3W 08-23 18:14 → 2W 08-31 21:57 → 3N 09-02 17:03

== ENCOUNTER 2024-11-10 18:28 | Inpatient (IN) ==
--- NOTE | 2024-11-10 18:54 | Emergency Department Note ---
Impression & Plan Acute confusion, Hypertension, SOB (shortness of breath), Nonadherence to medication, Rash ED Provider Note NAME: DYLAN LEACH AGE: 85 SEX: F : 11/14/1938 ARRIVES VIA: Ambulance INFORMANT: [Patient][EMS] ED PROVIDER(S): [Avel Santiago MD] CHIEF COMPLAINT: Illness HISTORY OF PRESENT ILLNESS: The patient is an 85-year-old female who presents with some confusion, missed medication dosing. She was short of breath initially as per EMS. The EMS crew was concerned that she was not safe at home. She does live alone. She apparently is forgetting to take her medications. She does carry history of mild dementia. The patient states that she has not had any chest pain. She denies any fall or trauma. No vomiting, diarrhea or urinary complaints. She does complain of a rash across the chest wall and under her breasts, she had the same rash 8 days ago when she was seen in the ED and prescribed nystatin. She states that she is using the nystatin. When questioned as to why has not been taking her typical medications, she is unsure, she states she must have just forgot. PMHx/PSHx/Social Hx: See Below PHYSICAL EXAM: GENERAL: Patient is in no acute distress. HEENT: No acute trauma, normocephalic atraumatic, mucous membranes moist, no nasal congestion. NECK: No stridor, no adenopathy, no meningismus, trachea is midline. LUNGS: Clear to auscultation bilaterally, no wheeze, no rhonchi, breath sounds equal. HEART: There is a 2/6 to 3/6 systolic murmur, irregular rhythm with a normal rate. ABDOMEN: Soft, nontender, no peritonitis. EXTREMITIES: No cyanosis, full range of motion of all the joints without pain or difficulty. NEUROLOGIC: Awake and alert, no obvious focal motor deficit. SKIN: No jaundice, no diaphoresis. There is a reddened, somewhat raised and damp rash across the anterior chest wall under the breasts consistent with yeast DIFFERENTIAL DIAGNOSIS: Intracranial injury, stroke, UTI, dehydration, electrolyte imbalance, dementia, among others. EMERGENCY DEPARTMENT PROCEDURES: MEDICAL DECISION MAKING: There is no leukocytosis or concerning anemia. There is a normal platelet count. No concerning coagulopathy. No renal failure or significant electrolyte abnormality. No concerning liver enzyme elevation. Patient appears to be in a euthyroid state. ECG shows atrial fibrillation, no ST elevation. Cardiac enzyme testing x 1 is not consistent with acute cardiac injury. Urinalysis shows some dehydration, no infection. Chest x-ray does not show pneumonia or CHF. Brain CT shows no acute bleed or mass effect. Some chronic findings were seen on the brain CT. On exam, the patient was not hypoxic or toxic. She was hypertensive. No focal neurologic deficits. Patient received IV saline for hydration. She received IV labetalol for her high blood pressure, she had clotrimazole cream applied to the chest rash. She was given oral amlodipine. With the above interventions, the patient's significant hypertension resolved. She was resting comfortably. Patient was not felt safe by the EMS crew at home. She is forgetting to take her medications. She does live alone. The patient is aware of our findings and the reasoning for her hospitalization. She may require care center placement. I did speak with the case management team. The on-call hospitalist was consulted. The patient's chest rash appears fungal. No findings on workup to explain her complaints of dyspnea. Prior/Outside records/notes reviewed: Today's EMS notes describing her presentation and transport to this hospital. ECG per my interpretation: Indication was confusion. The ECG shows atrial fibrillation with a rate of 73. There is some nonspecific ST change. There is no ST elevation, no PVCs. There is some poor R wave progression. QTc is 420. Continuous Cardiac Monitoring per my interpretation: An order was placed for continuous cardiac monitoring. The monitor shows a rate of 83 with atrial fibrillation. Imaging/x-ray results per my interpretation: Chest x-ray does not show pneumonia or CHF. Some chronic change was seen. Chronic Medical/Social conditions affecting care: Advanced age, chronic Eliquis use. Care/Management discussed with: Case management, the on-call hospitalist. Level of care consideration(s): After review of the information above and other included data: --I believe the patient requires escalation of care to admission DISPOSITION: Admission Past Med/Surg History Problem List (Updated 11/11/24 @ 00:26 by Avel Santiago MD) Rash (Acute) Nonadherence to medication (Acute) SOB (shortness of breath) (Acute) Hypertension (Acute) Acute confusion (Acute) Intertrigo (Acute) Chronic kidney disease stage 3 Unable to care for self Dementia Stroke-like symptoms Alzheimer's dementia with anxiety Hypertension (Acute) Chronic atrial fibrillation CAD (coronary artery disease) Anticoagulant long-term use Chronic heart failure with preserved ejection fraction (HFpEF) Hypothyroidism GERD (gastroesophageal reflux disease) (Chronic) Depression with anxiety (Acute) Insomnia (Acute) Medical History Moderate dementia with anxiety Depression Arthritis Ambulatory dysfunction Generalized anxiety disorder Arthritis of right shoulder region Syncope and collapse Urinary incontinence Primary osteoarthritis, right shoulder DJD of left shoulder Chronic osteoarthritis Greater trochanteric bursitis of right hip Acute on chronic heart failure with preserved ejection fraction (HFpEF) KIM (acute kidney injury) Chest pain, atypical Sinus pause Labile hypertension Paroxysmal A-fib Precordial chest pain Hypercalcemia Hyperparathyroidism Sepsis due to pneumonia Pneumonia Acute on chronic diastolic CHF (congestive heart failure) Hypomagnesemia Hypophosphatemia History of coronary artery disease Precordial chest pain SOB (shortness of breath) Weakness Elevated troponin Costochondritis Confusion Acute alteration in mental status Ascending aorta dilation SOB (shortness of breath) Hypertension Asymptomatic bradycardia Acute renal failure superimposed on stage 3 chronic kidney disease Anemia, chronic disease Intractable nausea Problems related to lack of adequate sleep Delirium due to another medical condition, acute, hyperactive Mild cognitive impairment Iron deficiency anemia Chest pain Hiatal hernia with GERD and esophagitis Hypertension, uncontrolled Shortness of breath Acute UTI Chronic diastolic CHF (congestive heart failure) Breathlessness Atypical chest pain Acute on chronic heart failure with preserved ejection fraction BROUSSARD (dyspnea on exertion) Sleep-wake cycle disorder Mobitz type 1 second degree AV block (10/2023) Somatic dysfunction of sacroiliac joint History of blood transfusion 2012 2/2 GASTRIC ULCER History of gastric ulcer 2013 Spinal stenosis Gastric ulcer Atrial fibrillation with rapid ventricular response (11/2022) Fall Moderate mitral regurgitation Transient ischemic attack (TIA) ~2013>REASON FOR PLAVIX Osteoarthritis Chronic back pain Dyslipidemia Hypertension Surgical History 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 History of cardiac cath NO STENTS History of coronary artery bypass graft 1998 (1 VESSEL) S/P epidural steroid injection History of esophagogastroduodenoscopy (EGD) S/p reverse total shoulder arthroplasty RT/LEFT History of abdominoplasty PANNICULECTOMY History of colonoscopy History of arthroplasty of right hip History of arthroplasty of left hip History of hysterectomy with oophorectomy History of arthroplasty of left shoulder History of tonsillectomy and adenoidectomy H/O bilateral salpingo-oophorectomy with hyter Family History Father , age 74 Allergic reaction Mother , 80s CHF (congestive heart failure) Other No family history of adverse response to anesthesia Social History Smoking Status: Never smoker Second Hand Exposure: No; Do You Dip or Chew Tobacco: No; Tobacco Cessation Education Requested by Patient: No Hx Alcohol Use: No Hx Substance Use: No Preferred Language: Finnish Communication Ability: Effective Visual Impairment: No Limitations [employer] Furniture Required: No Beliefs That Will Affect Care: None marital status: Single Current Living Situation: Alone Current Living Situation Comment: independant apartment at [facility] How many Children do You have: 0 Other Information That Helps Us Care for You: No Feels Safe at Home: Yes Safety Concerns: Feels Safe At This Time Assistive Devices: Glasses Allergies Allergies Allergy/AdvReac Type Severity Reaction Status Date / Time nitroglycerin AdvReac Severe "PROJECTILE Verified 11/10/24 19:53 VOMITTING" ergotamine AdvReac Intermediate vomiting Verified 11/10/24 19:53 Home Meds Home Medications Medication Instructions Recorded Confirmed calcitriol 0.25 mcg capsule 0.25 mcg PO 3XWK 07/16/24 11/10/24 pantoprazole 40 mg tablet,delayed 40 mg PO AMHS 07/16/24 11/10/24 release rosuvastatin 10 mg tablet 10 mg PO HS 07/16/24 11/10/24 trazodone 50 mg tablet 50 mg PO HS 07/16/24 11/10/24 acetaminophen 500 mg tablet 500 mg PO TID PRN Pain 08/21/24 11/10/24 clopidogrel 75 mg tablet 75 mg PO QAM 08/21/24 11/10/24 buspirone 15 mg tablet 15 mg PO BID 11/02/24 11/10/24 ferrous sulfate 325 mg (65 mg 325 mg PO DAILY 11/02/24 11/10/24 iron) tablet (FeroSul) Previous Rx's Medication Instructions Recorded amlodipine 5 mg tablet (Norvasc) 5 mg PO QAM #30 tabs 05/21/24 apixaban 2.5 mg tablet (Eliquis) 2.5 mg PO BID #60 tabs 05/21/24 levothyroxine 75 mcg tablet 75 mcg PO DAILYBB #30 tabs 05/21/24 (Synthroid) melatonin 10 mg capsule 10 mg PO HS #30 caps 05/21/24 metoprolol succinate 25 mg 25 mg PO QAM #30 tabs 05/21/24 tablet,extended release 24 hr Results & Data (ED) Vital Signs Vital Signs - 24 hr 11/10/24 18:18 11/10/24 18:22 11/10/24 18:44 Temperature 36.6 C Temperature Source Temporal Artery Scan Pulse Rate 83 Respiratory Rate 18 16 Blood Pressure 221/120 H Blood Pressure Mean 153 Pulse Oximetry 99 98 Oxygen Delivery Method Room Air Room Air Sepsis Recent Fever Within 48 Hours No Sepsis New/Unexplained Change in Mental Status N/A Sepsis Action Taken by Nursing No Action Required 11/10/24 18:55 11/10/24 19:42 Temperature Temperature Source Pulse Rate 75 73 Respiratory Rate Blood Pressure 176/103 H 149/88 H Blood Pressure Mean Pulse Oximetry Oxygen Delivery Method Sepsis Recent Fever Within 48 Hours Sepsis New/Unexplained Change in Mental Status Sepsis Action Taken by Prison Medications Current Medication List: was personally reviewed by me Laboratory Data Attestation: I reviewed the patient's lab results. 11/10/24 20:00 11/10/24 20:00 Lab Results 11/10/24 11/10/24 Range/Units 18:44 20:00 WBC 5.66 (4.8-10.8) K/ul RBC 4.11 L (4.20-5.40) M/uL Hgb 12.9 (12.0-16.0) g/dl Hct 37.3 (37.0-47.0) % MCV 90.8 (80.0-100.0) fL MCH 31.4 (25.0-34.0) pg MCHC 34.6 (32.0-36.0) g/dL RDW Std Deviation 43.3 (36.4-46.3) fL RDW Coeff of Howie 13.2 (11.5-14.5) % Plt Count 166 (130-400) K/uL MPV 9.8 (9.4-12.4) fL Immature Gran % (Auto) 0.2 % Neut % (Auto) 52.9 % Lymph % (Auto) 33.7 % [place] % (Auto) 10.2 % Eos % (Auto) 2.3 % Baso % (Auto) 0.7 % Neut # (Auto) 2.99 (1.40-6.50) K/uL Lymph # (Auto) 1.91 (1.20-3.40) K/uL [place] # (Auto) 0.58 (0.11-0.59) K/uL Eos # (Auto) 0.13 (0.00-0.50) K/uL Baso # (Auto) 0.04 (0.00-0.20) K/uL Immature Gran # (Auto) 0.01 (0.01-0.20) K/uL PT 12.3 H (9.0-12.0) Seconds INR 1.1 (0.9-1.1) APTT 27 (21-31) Seconds PTT Ratio 1.0 Sodium 137 (136-145) mmol/L Potassium 3.8 (3.5-5.1) mmol/L Chloride 106 (98-107) mmol/L Carbon Dioxide 23 (21-32) mmol/L Anion Gap 8 (3-11) BUN 18 (6-23) mg/dl Creatinine 1.14 (0.6-1.2) mg/dl Est Cr Clr Drug Dosing 32.7 ml/min eGFR 46.59 BUN/Creatinine Ratio 15.8 (10-20) Glucose 95 (70-99(Fasting)) mg/dl Calcium 10.4 H (8.6-10.3) mg/dl Phosphorus 2.6 (2.5-4.9) mg/dl Magnesium 1.8 (1.7-2.4) mg/dl Total Bilirubin 1.1 H (0.2-1.0) mg/dl AST 16 (13-39) U/L ALT 9 (7-52) U/L Alkaline Phosphatase 65 (34-104) U/L Troponin I High Sens 13.5 (0-14) pg/ml Total Protein 7.0 (6.0-8.3) gm/dl Albumin 3.8 (3.4-5.0) gm/dl Globulin 3.2 (2.5-4.0) gm/dl Albumin/Globulin Ratio 1.2 (0.9-2) TSH 1.213 (0.300-4.500) uIu/ml Urine Color Yellow Urine Appearance Clear (Clear) Urine pH 8.0 H (4.5-7.5) Ur Specific [place] 1.010 (1.000-1.030) Urine Protein Trace H (Negative) Urine Glucose (UA) Negative (Negative) Urine Ketones Trace H (Negative) Urine Blood Negative (Negative) Urine Nitrite Negative (Negative) Urine Bilirubin Negative (Negative) Urine Urobilinogen Negative (Negative) Ur Leukocyte Esterase Negative (Negative) Urine WBC (Auto) 0-5 (0-5) /hpf Urine RBC (Auto) 0-2 (0-2) /hpf U Hyaline Cast (Auto) 0-2 (0-2) /lpf U Epithel Cells (Auto) 0-2 (0-2) /hpf Urine Bacteria (Auto) None Seen (None Seen) Urine Comment Administered Medications Apixaban (Apixaban 2.5 Mg Tab) 2.5 mg PO BID YAN Stop: 12/10/24 22:29 Last Admin: 11/10/24 23:04 Dose: 2.5 mg Documented By: RAMANDEEP Buspirone HCl (Buspirone 15 Mg Tab) 15 mg PO BID YAN Stop: 12/10/24 22:29 Last Admin: 11/10/24 23:04 Dose: 15 mg Documented By: RAMANDEEP Melatonin (Melatonin 3 Mg Tab) 9 mg PO HS PRN PRN Reason: insomnia Stop: 12/11/24 20:59 Last Admin: 11/10/24 23:34 Dose: 9 mg Documented By: RAMANDEEP Trazodone HCl (Trazodone Hcl 50 Mg Tab) 50 mg PO HS YAN Stop: 12/10/24 22:24 Last Admin: 11/10/24 23:04 Dose: 50 mg Documented By: RAMANDEEP Discontinued Medications Amlodipine Besylate (Amlodipine Besylate 5 Mg Tab) 5 mg PO NOW ONE Stop: 11/10/24 18:45 Last Admin: 11/10/24 18:55 Dose: 5 mg Documented By: XOCHITL Clotrimazole (Clotrimazole 1% Cr 15 Gm Tube) 1 appln EXT NOW ONE Stop: 11/10/24 18:45 Last Admin: 11/10/24 18:55 Dose: 1 appln Documented By: XOCHITL Sodium Chloride (Nss) 500 mls @ 999 mls/hr IV .Q31M ONE Stop: 11/10/24 19:14 Last Infusion: 11/10/24 19:39 Dose: Infused Documented By: Admin: 11/10/24 18:56 Dose: 999 mls/hr Documented By: XOCHITL Labetalol HCl (Labetalol Hcl Iv 5 Mg/Ml 20ml) 10 mg IV NOW STA Stop: 11/10/24 18:45 Last Admin: 11/10/24 18:55 Dose: 10 mg Documented By: XOCHITL Imaging Data Radiologist's Impression: Chest X-Ray 11/10/24 18:44 Clinical History: Weakness Technique: A frontal view of the chest was obtained Findings: There are no confluent pulmonary infiltrates. The heart is mildly enlarged. No pleural effusion or pneumothorax is seen. There is no definite pulmonary nodule. Sternal wires are present. There are bilateral shoulder replacements Impression: Mild cardiomegaly Electronically signed by Dhaval Obregon 11-10-2024 7:[address] 11/10/24 18:44 Exam: CT head/brain without contrast. Reason for exam: Confusion. Previous studies: CT head 09/01/2024 FINDINGS: No intracranial mass, hemorrhage or edema is found. 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 There is diffuse atrophy and lucency in the deep white matter. Extensive atherosclerotic calcification seen in the cerebral arteries. Ventricular size is stable. IMPRESSION: 1. Negative for acute intracranial process. No mass or hemorrhage. 2. Stable appearance chronic atrophy and ischemic angiopathy deep white matter. 3. Note that the 1.4 cm meningioma along the left frontal convexity is not well seen on this unenhanced only scan. If further evaluation is indicated, gadolinium-enhanced MRI study is recommended. Electronically signed by Raoul Gonzalez 11-10-2024 8:15 PM Discharge Plan Visit Data Chief Complaint: Illness Stated Complaint: CHEST PAIN, RASH, SOB, HYPERTENSIVE ED Provider: Avel Santiago Discharge Problem: Acute confusion, Hypertension, SOB (shortness of breath), Nonadherence to medication, Rash Patient Disposition: Admitted As Inpatient Condition: Fair Discharge Instructions Interventions: ED Discharge Assessment Last Done: 11/10/24 22:08 Discharge Problem: Hypertension Qualifiers: Hypertension type: unspecified Qualified Code(s): I10 - Essential (primary) hypertension
[2024-11-10] MEDS: CLOTRIMAZOLE 1% CR 15 GM TUBE EXT ONE (18:55)
[2024-11-10] MEDS: LABETALOL HCL IV 5 MG/ML 20ML IV STA (18:55)
[2024-11-10] MEDS: SODIUM CHLORIDE 0.9% 500 ML IV ONE (18:56)
[2024-11-10 19:01] LABS: Appearance Urine Clear (Clear); Bacteria Urine Automated None Seen (None Seen); Cast Urine Automated 0-2 /lpf (0-2); Epithelial Cell Urine Auto 0-2 /hpf (0-2); Glucose Urine UA Negative (Negative); RBC Urine Automated 0-2 /hpf (0-2); WBC Urine Automated 0-5 /hpf (0-5)
--- NOTE | 2024-11-10 19:50 | XRay Report ---
Clinical History: Weakness Technique: A frontal view of the chest was obtained Findings: There are no confluent pulmonary infiltrates. The heart is mildly enlarged. No pleural effusion or pneumothorax is seen. There is no definite pulmonary nodule. Sternal wires are present. There are bilateral shoulder replacements Impression: Mild cardiomegaly Electronically signed by Dhaval Obregon 11-10-2024 7:50 PM
[2024-11-10 20:14] LABS: Hematocrit (blood only) 37.3 % (37.0-47.0); Hemoglobin 12.9 g/dl (12.0-16.0); Immature Granulocytes # (auto) 0.01 K/uL (0.01-0.20); Immature Granulocytes % (auto) 0.2 %; Mean Corpuscular Hemoglobin 31.4 pg (25.0-34.0); Mean Corpuscular Volume 90.8 fL (80.0-100.0); Platelet Count 166 K/uL (130-400); RDW Standard Deviation 43.3 fL (36.4-46.3); Red Blood Count 4.11 M/uL (4.20-5.40); White Blood Count 5.66 K/ul (4.8-10.8)
--- NOTE | 2024-11-10 20:15 | CT Scan Report ---
Exam: CT head/brain without contrast. Reason for exam: Confusion. Previous studies: CT head 09/01/2024 FINDINGS: No intracranial mass, hemorrhage or edema is found. 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 There is diffuse atrophy and lucency in the deep white matter. Extensive atherosclerotic calcification seen in the cerebral arteries. Ventricular size is stable. IMPRESSION: 1. Negative for acute intracranial process. No mass or hemorrhage. 2. Stable appearance chronic atrophy and ischemic angiopathy deep white matter. 3. Note that the 1.4 cm meningioma along the left frontal convexity is not well seen on this unenhanced only scan. If further evaluation is indicated, gadolinium-enhanced MRI study is recommended. Electronically signed by Raoul Gonzalez 11-10-2024 8:15 PM
[2024-11-10 20:33] LABS: Alanine Aminotransferase 9.0 U/L (7-52); Albumin Globulin Ratio 1.2 (0.9-2); Albumin Level 3.8 gm/dl (3.4-5.0); Alkaline Phosphatase 65.0 U/L (34-104); Anion Gap 8.0 (3-11); Bilirubin,Total 1.1 mg/dl (0.2-1.0); Blood Urea Nitrogen 18.0 mg/dl (6-23); Calcium 10.4 mg/dl (8.6-10.3); Carbon Dioxide 23.0 mmol/L (21-32); Chloride 106.0 mmol/L (98-107); Creatinine Clr Calc Pharmacy 32.7 ml/min; Globulin 3.2 gm/dl (2.5-4.0); Glucose 95.0 mg/dl (70-99(Fasting)); Magnesium 1.8 mg/dl (1.7-2.4); Potassium 3.8 mmol/L (3.5-5.1); Sodium 137.0 mmol/L (136-145); Total Protein 7.0 gm/dl (6.0-8.3)
[2024-11-10 20:45] LABS: INR 1.1 (0.9-1.1); Partial Thromboplastin Time 27 Seconds (21-31); Prothrombin Time 12.3 Seconds (9.0-12.0)
[2024-11-10 20:47] LABS: Thyroid Stimulating Hormone 1.213 uIu/ml (0.300-4.500)
--- NOTE | 2024-11-10 21:31 | History & Physical Report ---
Date of Service November 10, 2024 Assessment & Plan (1) SOB (shortness of breath): Plan: Assessment and plan below following discussion of case with ED provider and reviewing patient history/pertinent normal/abnormal diagnostic test results. Shortness of breath Possibly from uncontrolled HTN Missed medications secondary to patient's cognitive impairment/dementia Recurrent issue for patient on review of records Intertrigo likely fungal, worsening rash secondary to unable to apply topical medication provided by ED from last week's visit hx chronic diastolic heart failure (EF 60 to 65%, TTE 2024), euvolemic to dry valvular heart disease (mild MR/TR) hx CAD status post CABG/PVD/CVA A-fib on Eliquis hyperlipidemia on statin rx hypothyroidism, euthyroid as of today's TSH Hypercalcemia, possible primary hyperparathyroidism, elevated PTH on review of outpatient blood work anxiety/mood disorder, at baseline past tobacco abuse OBS Admit to med/tele Facilitate home BP meds now Topical antifungal for rash Recheck calcium level after NSS bolus, recheck intact PTH and vitamin D levels PT OT eval Social service re: contact office of aging about patient readmission due to inability to care for self DVT prophylaxis. Eliquis Full code Patient requests for brother to be given updates regarding care. Mr. Matt Boles, contact #[phone]. Text document was generated using [employer] voice recognition software. It may contain grammatical or spelling errors. Kindly contact undersigned for clarification of any documentation item in question. History of Present Illness Chief Complaint: Short of breath Primary Care Provider: Gilbert Calloway MD History obtained from patient and records. Medical history significant for chronic diastolic heart failure (EF 60 to 65%, TTE 2024), valvular heart disease (mild MR/TR), CAD status post CABG, A-fib on Eliquis, ascending aorta dilatation, hypertension, hyperlipidemia CVA, meningioma, mild dementia, hypothyroidism, anxiety/mood disorder, past tobacco abuse. Last confinement August 2024 for decompensated heart failure and inability to care for self. Patient misses doctors appointments, forgets to take medications, forgets to eat/drink as per note. Prolonged hospital course due to difficulty with placement. Case management in touch with office of aging prior to discharge home. Last week, patient noted an itchy rash under her breast. Rash attributed to intertrigo as per ED note. Patient provided with topical nystatin on discharge. Patient felt short of breath today. Denies chest pain, cough, headache, abdominal pain symptoms. Patient feels rash getting worse. Does not recall being provided with medication from last ER visit prior to discharge home. Patient admits to not being able to take her morning meds today because she was busy. SBP 220s upon arrival at the ER. IV labetalol and amlodipine administered at the ER. SBP currently 160s. Patient comfortable. 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 Allergies Allergy/AdvReac Type Severity Reaction Status Date / Time nitroglycerin AdvReac Severe "PROJECTILE Verified 11/10/24 19:53 VOMITTING" ergotamine AdvReac Intermediate vomiting Verified 11/10/24 19:53 Home Medications Medication Instructions Recorded Confirmed Type amlodipine 5 mg tablet (Norvasc) 5 mg PO QAM #30 tabs 05/21/24 11/10/24 Rx apixaban 2.5 mg tablet (Eliquis) 2.5 mg PO BID #60 tabs 05/21/24 11/10/24 Rx levothyroxine 75 mcg tablet 75 mcg PO DAILYBB #30 tabs 05/21/24 11/10/24 Rx (Synthroid) melatonin 10 mg capsule 10 mg PO HS #30 caps 05/21/24 11/10/24 Rx metoprolol succinate 25 mg 25 mg PO QAM #30 tabs 05/21/24 11/10/24 Rx tablet,extended release 24 hr calcitriol 0.25 mcg capsule 0.25 mcg PO 3XWK 07/16/24 11/10/24 History pantoprazole 40 mg tablet,delayed 40 mg PO AMHS 07/16/24 11/10/24 History release rosuvastatin 10 mg tablet 10 mg PO HS 07/16/24 11/10/24 History trazodone 50 mg tablet 50 mg PO HS 07/16/24 11/10/24 History acetaminophen 500 mg tablet 500 mg PO TID PRN Pain 08/21/24 11/10/24 History clopidogrel 75 mg tablet 75 mg PO QAM 08/21/24 11/10/24 History buspirone 15 mg tablet 15 mg PO BID 11/02/24 11/10/24 History ferrous sulfate 325 mg (65 mg 325 mg PO DAILY 11/02/24 11/10/24 History iron) tablet (FeroSul) Past Med/Surg History Problem List (Updated 11/02/24 @ 18:48 by Manohar Guerrier M.D.) Intertrigo (Acute) Chronic kidney disease stage 3 Unable to care for self Dementia Stroke-like symptoms Alzheimer's dementia with anxiety Hypertension (Acute) Chronic atrial fibrillation CAD (coronary artery disease) Anticoagulant long-term use Chronic heart failure with preserved ejection fraction (HFpEF) Hypothyroidism GERD (gastroesophageal reflux disease) (Chronic) Depression with anxiety (Acute) Insomnia (Acute) Medical History (Updated 11/02/24 @ 18:48 by Manohar Geurrier M.D.) Moderate dementia with anxiety Depression Arthritis Ambulatory dysfunction Generalized anxiety disorder Arthritis of right shoulder region Syncope and collapse Urinary incontinence Primary osteoarthritis, right shoulder DJD of left shoulder Chronic osteoarthritis Greater trochanteric bursitis of right hip Acute on chronic heart failure with preserved ejection fraction (HFpEF) KIM (acute kidney injury) Chest pain, atypical Sinus pause Labile hypertension Paroxysmal A-fib Precordial chest pain Hypercalcemia Hyperparathyroidism Sepsis due to pneumonia Pneumonia Acute on chronic diastolic CHF (congestive heart failure) Hypomagnesemia Hypophosphatemia History of coronary artery disease Precordial chest pain SOB (shortness of breath) Weakness Elevated troponin Costochondritis Confusion Acute alteration in mental status Ascending aorta dilation SOB (shortness of breath) Hypertension Asymptomatic bradycardia Acute renal failure superimposed on stage 3 chronic kidney disease Anemia, chronic disease Intractable nausea Problems related to lack of adequate sleep Delirium due to another medical condition, acute, hyperactive Mild cognitive impairment Iron deficiency anemia Chest pain Hiatal hernia with GERD and esophagitis Hypertension, uncontrolled Shortness of breath Acute UTI Chronic diastolic CHF (congestive heart failure) Breathlessness Atypical chest pain Acute on chronic heart failure with preserved ejection fraction BROUSSARD (dyspnea on exertion) Sleep-wake cycle disorder Mobitz type 1 second degree AV block (10/2023) Somatic dysfunction of sacroiliac joint History of blood transfusion 2012 2/2 GASTRIC ULCER History of gastric ulcer 2013 Spinal stenosis Gastric ulcer Atrial fibrillation with rapid ventricular response (11/2022) Fall Moderate mitral regurgitation Transient ischemic attack (TIA) ~2012>REASON FOR PLAVIX Osteoarthritis Chronic back pain Dyslipidemia Hypertension Surgical History 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 History of cardiac cath NO STENTS History of coronary artery bypass graft 1998 (1 VESSEL) S/P epidural steroid injection History of esophagogastroduodenoscopy (EGD) S/p reverse total shoulder arthroplasty RT/LEFT History of abdominoplasty PANNICULECTOMY History of colonoscopy History of arthroplasty of right hip History of arthroplasty of left hip History of hysterectomy with oophorectomy History of arthroplasty of left shoulder History of tonsillectomy and adenoidectomy H/O bilateral salpingo-oophorectomy with hyter Family History Father , age 74 Allergic reaction Mother , 80s CHF (congestive heart failure) Other No family history of adverse response to anesthesia Social History Smoking Status: Never smoker Second Hand Exposure: No; Do You Dip or Chew Tobacco: No; Tobacco Cessation Education Requested by Patient: No Hx Alcohol Use: No Hx Substance Use: No Preferred Language: Ecuadorean Communication Ability: Effective Visual Impairment: No Limitations Head Paper Tester Required: No Beliefs That Will Affect Care: None marital status: Single Current Living Situation: Alone Current Living Situation Comment: independant apartment at [facility] How many Children do You have: 0 Other Information That Helps Us Care for You: No Feels Safe at Home: Yes Safety Concerns: Feels Safe At This Time Assistive Devices: Glasses Review of Systems Review of Systems: As per HPI, all other systems reviewed and negative Physical Exam Physical Exam: GENERAL: Comfortable, psych anxious, no respiratory distress SKIN: Normal color, warm HEENT: [place] palpebral conjunctivae, no ptosis, dry buccal mucosa NECK : Supple, no tenderness CHEST : Foul-smelling inframammary rash extending across chest, CTA, no tenderness HEART : Irregular, no obvious murmurs ABDOMEN: Some distention, nontender EXTREMITIES : No LE swelling/tenderness, palpable pulses, no other conspicuous deformities noted NEUROLOGIC : Coherent, no facial asymmetry, no other gross focality Results & Data Results & Data Vital Signs (Past 12 Hours) Vital Signs Temp Pulse Resp BP Pulse Ox O2 Del Method 11/10/24 19:42 73 149/88 H 11/10/24 18:55 75 176/103 H 11/10/24 18:44 98 Room Air 11/10/24 18:22 16 11/10/24 18:18 36.6 C 83 18 221/120 H 99 Room Air Laboratory Results Laboratory Results WBC 5.66 K/ul (4.8-10.8) 11/10/24 20:00 RBC 4.11 M/uL (4.20-5.40) L 11/10/24 20:00 Hgb 12.9 g/dl (12.0-16.0) 11/10/24 20:00 Hct 37.3 % (37.0-47.0) 11/10/24 20:00 MCV 90.8 fL (80.0-100.0) 11/10/24 20:00 MCH 31.4 pg (25.0-34.0) 11/10/24 20:00 MCHC 34.6 g/dL (32.0-36.0) 11/10/24 20:00 RDW Std Deviation 43.3 fL (36.4-46.3) 11/10/24 20:00 RDW Coeff of Howie 13.2 % (11.5-14.5) 11/10/24 20:00 Plt Count 166 K/uL (130-400) 11/10/24 20:00 MPV 9.8 fL (9.4-12.4) 11/10/24 20:00 Immature Gran % (Auto) 0.2 % 11/10/24 20:00 Neut % (Auto) 52.9 % 11/10/24 20:00 Lymph % (Auto) 33.7 % 11/10/24 20:00 Snyder % (Auto) 10.2 % 11/10/24 20:00 Eos % (Auto) 2.3 % 11/10/24 20:00 Baso % (Auto) 0.7 % 11/10/24 20:00 Neut # (Auto) 2.99 K/uL (1.40-6.50) 11/10/24 20:00 Lymph # (Auto) 1.91 K/uL (1.20-3.40) 11/10/24 20:00 Snyder # (Auto) 0.58 K/uL (0.11-0.59) 11/10/24 20:00 Eos # (Auto) 0.13 K/uL (0.00-0.50) 11/10/24 20:00 Baso # (Auto) 0.04 K/uL (0.00-0.20) 11/10/24 20:00 Immature Gran # (Auto) 0.01 K/uL (0.01-0.20) 11/10/24 20:00 PT 12.3 Seconds (9.0-12.0) H 11/10/24 20:00 INR 1.1 (0.9-1.1) 11/10/24 20:00 APTT 27 Seconds (21-31) 11/10/24 20:00 PTT Ratio 1.0 11/10/24 20:00 Sodium 137 mmol/L (136-145) 11/10/24 20:00 Potassium 3.8 mmol/L (3.5-5.1) 11/10/24 20:00 Chloride 106 mmol/L (98-107) 11/10/24 20:00 Carbon Dioxide 23 mmol/L (21-32) 11/10/24 20:00 Anion Gap 8 (3-11) 11/10/24 20:00 BUN 18 mg/dl (6-23) 11/10/24 20:00 Creatinine 1.14 mg/dl (0.6-1.2) 11/10/24 20:00 Est Cr Clr Drug Dosing 32.7 ml/min 11/10/24 20:00 eGFR 46.59 11/10/24 20:00 BUN/Creatinine Ratio 15.8 (10-20) 11/10/24 20:00 Glucose 95 mg/dl (70-99(Fasting)) 11/10/24 20:00 Calcium 10.4 mg/dl (8.6-10.3) H 11/10/24 20:00 Magnesium 1.8 mg/dl (1.7-2.4) 11/10/24 20:00 Total Bilirubin 1.1 mg/dl (0.2-1.0) H 11/10/24 20:00 AST 16 U/L (13-39) 11/10/24 20:00 ALT 9 U/L (7-52) 11/10/24 20:00 Alkaline Phosphatase 65 U/L (34-104) 11/10/24 20:00 Troponin I High Sens 13.5 pg/ml (0-14) 11/10/24 20:00 Total Protein 7.0 gm/dl (6.0-8.3) 11/10/24 20:00 Albumin 3.8 gm/dl (3.4-5.0) 11/10/24 20:00 Globulin 3.2 gm/dl (2.5-4.0) 11/10/24 20:00 Albumin/Globulin Ratio 1.2 (0.9-2) 11/10/24 20:00 TSH 1.213 uIu/ml (0.300-4.500) 11/10/24 20:00 Urine Color Yellow 11/10/24 18:44 Urine Appearance Clear (Clear) 11/10/24 18:44 Urine pH 8.0 (4.5-7.5) H 11/10/24 18:44 Ur Specific [place] 1.010 (1.000-1.030) 11/10/24 18:44 Urine Protein Trace (Negative) H 11/10/24 18:44 Urine Glucose (UA) Negative (Negative) 11/10/24 18:44 Urine Ketones Trace (Negative) H 11/10/24 18:44 Urine Blood Negative (Negative) 11/10/24 18:44 Urine Nitrite Negative (Negative) 11/10/24 18:44 Urine Bilirubin Negative (Negative) 11/10/24 18:44 Urine Urobilinogen Negative (Negative) 11/10/24 18:44 Ur Leukocyte Esterase Negative (Negative) 11/10/24 18:44 Urine WBC (Auto) 0-5 /hpf (0-5) 11/10/24 18:44 Urine RBC (Auto) 0-2 /hpf (0-2) 11/10/24 18:44 U Hyaline Cast (Auto) 0-2 /lpf (0-2) 11/10/24 18:44 U Epithel Cells (Auto) 0-2 /hpf (0-2) 11/10/24 18:44 Urine Bacteria (Auto) None Seen (None Seen) 11/10/24 18:44 Urine Comment 11/10/24 18:44 Impressions Chest X-Ray 11/10/24 18:44 Clinical History: Weakness Technique: A frontal view of the chest was obtained Findings: There are no confluent pulmonary infiltrates. The heart is mildly enlarged. No pleural effusion or pneumothorax is seen. There is no definite pulmonary nodule. Sternal wires are present. There are bilateral shoulder replacements Impression: Mild cardiomegaly Electronically signed by Dhaval Obregon 11-10-2024 7:[address] 11/10/24 18:44 Exam: CT head/brain without contrast. Reason for exam: Confusion. Previous studies: CT head 09/01/2024 FINDINGS: No intracranial mass, hemorrhage or edema is found. 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 There is diffuse atrophy and lucency in the deep white matter. Extensive atherosclerotic calcification seen in the cerebral arteries. Ventricular size is stable. IMPRESSION: 1. Negative for acute intracranial process. No mass or hemorrhage. 2. Stable appearance chronic atrophy and ischemic angiopathy deep white matter. 3. Note that the 1.4 cm meningioma along the left frontal convexity is not well seen on this unenhanced only scan. If further evaluation is indicated, gadolinium-enhanced MRI study is recommended. Electronically signed by Raoul Gonzalez 11-10-2024 8:15 PM Diagnostic Findings EKG as per my interpretation :Rate 75, A-fib, normal axis, inferior infarct, no ischemia
[2024-11-10] MEDS: APIXABAN 2.5 MG TAB PO SCH (23:04)
[2024-11-10] MEDS: busPIRone 15 MG TAB PO SCH (23:04)
[2024-11-10] MEDS: MELATONIN 3 MG TAB PO PRN (23:34)
[2024-11-11] MEDS: MELATONIN 3 MG TAB PO STA (02:24)
[2024-11-11] MEDS: LEVOTHYROXINE SODIUM 75 MCG TABLET PO SCH (05:57)
[2024-11-11 06:40] LABS: Hematocrit (blood only) 33.7 % (37.0-47.0); Hemoglobin 11.3 g/dl (12.0-16.0); Immature Granulocytes # (auto) 0.01 K/uL (0.01-0.20); Immature Granulocytes % (auto) 0.2 %; Mean Corpuscular Hemoglobin 30.6 pg (25.0-34.0); Mean Corpuscular Volume 91.3 fL (80.0-100.0); Platelet Count 148 K/uL (130-400); RDW Standard Deviation 45.1 fL (36.4-46.3); Red Blood Count 3.69 M/uL (4.20-5.40); White Blood Count 4.59 K/ul (4.8-10.8)
[2024-11-11 07:02] LABS: Anion Gap 6.0 (3-11); Blood Urea Nitrogen 16.0 mg/dl (6-23); Calcium 9.8 mg/dl (8.6-10.3); Carbon Dioxide 24.0 mmol/L (21-32); Chloride 110.0 mmol/L (98-107); Creatinine Clr Calc Pharmacy 36.7 ml/min; Glucose 88.0 mg/dl (70-99(Fasting)); Potassium 3.6 mmol/L (3.5-5.1); Sodium 140.0 mmol/L (136-145)
[2024-11-11] MEDS: NYSTATIN POWDER 15GM BTL EXT SCH (08:15)
[2024-11-11] MEDS: METOPROLOL SUCC 25MG EXT REL TAB PO SCH (08:15)
[2024-11-11] MEDS: FERROUS SULFATE 325 MG TAB PO SCH (08:15)
[2024-11-11] MEDS: CLOPIDOGREL BISULFATE 75 MG TAB PO SCH (08:15)
--- NOTE | 2024-11-11 12:11 | Electrocardiogram Report ---
Test Reason : Blood Pressure : */* mmHG Vent. Rate : 73 BPM Atrial Rate : * BPM P-R Int : * ms QRS Dur : 82 ms QT Int : 382 ms P-R-T Axes : * 9 180 degrees QTcB Int : 420 ms Atrial fibrillation Anterior infarct (cited on or before 25-Jul-2024) Abnormal ECG When compared with ECG of 21-Aug-2024 18:57, Criteria for Inferior infarct are no longer Present Questionable change in initial forces of Anteroseptal leads Nonspecific T wave abnormality now evident in Lateral leads Confirmed by Delmar Askew ([id number]) on 11/11/2024 12:11:07 PM Referred By: REFERRED SELF Confirmed By: Delmar Askew
[2024-11-11] MEDS ORDERED: ARTIFICIAL TEARS OPB PRN (13:43)
--- NOTE | 2024-11-11 14:29 | Hospitalist Progress Note ---
Date of Service November 11, 2024 Assessment & Plan (1) SOB (shortness of breath): Plan: Shortness of breath Possibly from uncontrolled HTN, CXR w/ no congestion. Missed medications secondary to patient's cognitive impairment/dementia Recurrent issue for patient on review of records c/w home meds, monitor. Intertrigo likely fungal, worsening rash secondary to unable to apply topical medication provided by ED from last week's visit, c/w topical antifungal underneath breast tissues Other chronic medical conditions: Continue with/resume home meds as when able. hx chronic diastolic heart failure (EF 60 to 65%, TTE 2024), euvolemic to dry valvular heart disease (mild MR/TR) hx CAD status post CABG/PVD/CVA A-fib on Eliquis hyperlipidemia on statin rx hypothyroidism, euthyroid as of today's TSH Hypercalcemia, possible primary hyperparathyroidism, elevated PTH on review of outpatient blood work, f/u endocrine as OP. Ca normalized. anxiety/mood disorder, at baseline past tobacco abuse PT OT eval Social service re: contact office of aging about patient readmission due to inability to care for self DVT prophylaxis. Deana Full code Patient's brother Mr. Matt Boles, contact #[phone]. Text document was generated using [employer] voice recognition software. It may contain grammatical or spelling errors. Kindly contact undersigned for clarification of any documentation item in question. Admission and Anticipated Discharge Date Admission Date: November 10, 2024 Subjective Patient was seen and examined at bedside. Patient was lying in bed, on room air, NAD, resting comfortably. Patient reports some itchiness underneath the breasts. Patient reports improving shortness of breath. Patient denies chest pain. Physical Exam Physical Exam: GENERAL: Comfortable, psych anxious, no respiratory distress SKIN: Normal color, warm HEENT: [place] palpebral conjunctivae, no ptosis, moist buccal mucosa NECK : Supple, no tenderness CHEST : inframammary rash extending across chest, CTA, no tenderness HEART : Irregular, no obvious murmurs ABDOMEN: Some distention, nontender EXTREMITIES : No LE swelling/tenderness, palpable pulses, no other conspicuous deformities noted NEUROLOGIC : Coherent, no facial asymmetry, no other gross focality Results & Data Results & Data Vital Signs (Past 12 Hours) Vital Signs Temp Pulse Pulse Resp BP Pulse Ox Pulse Ox 11/11/24 13:05 68 11/11/24 11:16 36.8 C 66 16 124/63 97 11/11/24 11:03 99 11/11/24 08:21 36.6 C 75 18 150/85 H 96 11/11/24 06:45 61 O2 Del Method O2 Flow Rate 11/11/24 13:05 11/11/24 11:16 Room Air 11/11/24 11:03 0 11/11/24 08:21 Room Air 11/11/24 06:45
[2024-11-11] MEDS: ROSUVASTATIN CALCIUM 10 MG TAB PO SCH (20:34)
[2024-11-11] MEDS: MELATONIN 3 MG TAB PO PRN (23:16)
--- NOTE | 2024-11-12 02:46 | Communication Note ---
Date of Service: November 12, 2024 Patient noted to have 3-second pause on the monitor. Patient asymptomatic during event. AP Asymptomatic sinus pause Decrease maintenance beta-brendan dose for now.
[2024-11-12] MEDS ORDERED: ATROPINE SULFATE 0.1 MG/ML 10ML SYR IV PRN (02:50)
[2024-11-12 06:56] LABS: Hematocrit (blood only) 36.7 % (37.0-47.0); Hemoglobin 12.0 g/dl (12.0-16.0); Mean Corpuscular Hemoglobin 30.0 pg (25.0-34.0); Mean Corpuscular Volume 91.8 fL (80.0-100.0); Platelet Count 159 K/uL (130-400); RDW Standard Deviation 45.1 fL (36.4-46.3); Red Blood Count 4.00 M/uL (4.20-5.40); White Blood Count 4.81 K/ul (4.8-10.8)
[2024-11-12 07:28] LABS: Anion Gap 7.0 (3-11); Blood Urea Nitrogen 16.0 mg/dl (6-23); Calcium 9.8 mg/dl (8.6-10.3); Carbon Dioxide 24.0 mmol/L (21-32); Chloride 109.0 mmol/L (98-107); Creatinine Clr Calc Pharmacy 31.8 ml/min; Glucose 88.0 mg/dl (70-99(Fasting)); Magnesium 1.9 mg/dl (1.7-2.4); Potassium 3.8 mmol/L (3.5-5.1); Sodium 140.0 mmol/L (136-145)
[2024-11-12] MEDS: METOPROLOL SUCC 25MG EXT REL TAB PO SCH (08:25)
[2024-11-12] MEDS: ONDANSETRON INJ 2 MG/ML 2 ML VIAL IV PRN (12:14)
--- NOTE | 2024-11-12 14:56 | Hospitalist Progress Note ---
Date of Service November 12, 2024 Assessment & Plan (1) SOB (shortness of breath): Plan: Shortness of breath Possibly from uncontrolled HTN, CXR w/ no congestion. Complicated by anxiety Missed medications secondary to patient's cognitive impairment/dementia Recurrent issue for patient on review of records c/w home meds, monitor. Has had an episode of shortness of breath this morning with anxiety and chest tightness Remains hemodynamically stable and was afebrile, saturating normally on room air Condition settled down with reassurance and keeping 10 mg of hydroxyzine Will monitor while in the hospital Intertrigo Likely fungal, worsening rash secondary to unable to apply topical medication provided by ED from last week's visit, c/w topical antifungal underneath breast tissues Dementia Has Mild Dementia Complicated by Anxiety/Mood disorder Sinus pauses Noted to up to 3.5-second pause Atrial fibrillation with bradycardia at times Her metoprolol dose has been decreased EKG was unremarkable Will correct electrolytes if decreased Doubt any other significant problem Other chronic medical conditions: Continue with/resume home meds as when able. H/O chronic diastolic heart failure (EF 60 to 65%, TTE 2024), euvolemic to dry Valvular heart disease (mild MR/TR) H/O CAD status post CABG/PVD/CVA A-fib on [employer] H spam call yperlipidemia on statin rx Hypothyroidism, euthyroid as of today's TSH Hypercalcemia, possible primary hyperparathyroidism, elevated PTH on review of outpatient blood work, f/u endocrine as OP. Ca normalized. Anxiety/mood disorder, at baseline Past tobacco abuse PT OT eval Social service re: contact office of aging about patient readmission due to inability to care for self DVT prophylaxis. [employer] Full code Patient's brother Mr. Matt Boles, contact #[phone]. Text document was generated using [employer] voice recognition software. It may contain grammatical or spelling errors. Kindly contact undersigned for clarification of any documentation item in question. Admission and Anticipated Discharge Date Admission Date: November 10, 2024 Subjective Patient was seen and examined in medical telemetry unit She has dementia and anxiety disorder noted to be very anxious this morning, with chest pressure shortness of breath and nausea Denies any abdominal pain, nausea but no vomiting, no fever and no chills and has been saturating normally on room air Reassured and she was given 10 mg of hydroxyzine Review of Systems Review of Systems: All systems reviewed and are unremarkable except as noted below Physical Exam Physical Exam: Lying in bed with anxiety and questionable shortness of breath Constitutional: well developed, well nourished and + ill appearing Eyes: PERRL, conjunctivae normal, anicteric sclerae ENMT: external ear and nose normal, oropharynx normal Neck: trachea midline, no thyromegaly Respiratory: no respiratory distress Auscultation: lungs clear to auscultation bilaterally Cardiovascular: Rate/Rhythm: regular rate and regular rhythm; not tachycardic Heart Sounds: normal S1, normal S2 and + murmur Extremities: no edema Gastrointestinal (Abdomen): Inspection/Auscultation: normal bowel sounds; abdomen not distended Percussion/Palpation: abdomen soft; abdomen nontender Musculoskeletal: No acute arthritis involving any of the joint Neurologic: normal touch/pain/proprioception and moves all extremities; no focal motor deficits and not confused Very anxious. Lymphatic: no cervical or axillary lymphadenopathy Results & Data Results & Data Vital Signs (Past 12 Hours) Vital Signs Temp Pulse Pulse Resp BP Pulse Ox O2 Del Method 11/12/24 13:07 74 11/12/24 11:12 36.4 C L 63 18 168/75 H 98 Room Air 11/12/24 08:25 Room Air 11/12/24 07:16 36.8 C 76 18 146/88 H 98 Room Air 11/12/24 06:45 69 11/12/24 03:14 36.8 C 78 18 153/91 H 99 Room Air Laboratory Results Short CBC 11/12/24 Range/Units 05:34 WBC 4.81 (4.8-10.8) K/ul Hgb 12.0 (12.0-16.0) g/dl Hct 36.7 L (37.0-47.0) % Plt Count 159 (130-400) K/uL BMP 11/12/24 05:34 Sodium 140 Potassium 3.8 Chloride 109 H Carbon Dioxide 24 BUN 16 Creatinine 1.13 Glucose 88 Calcium 9.8 Medications Administered Current Inpatient Medications Amlodipine Besylate (Amlodipine Besylate 5 Mg Tab) 5 mg PO QAM [facility] Stop: 12/11/24 08:59 Last Admin: 11/12/24 08:25 Dose: 5 mg Apixaban (Apixaban 2.5 Mg Tab) 2.5 mg PO BID [facility] Stop: 12/10/24 22:29 Last Admin: 11/12/24 08:25 Dose: 2.5 mg Artificial Tears (Artificial Tears) 1 drops OPB QID PRN PRN Reason: Dryness Stop: 12/11/24 13:42 Atropine Sulfate (Atropine Sulfate 0.1 Mg/Ml 10ml Syr) 1 mg IV Q3M PRN PRN Reason: symptomatic bradycardia Stop: 12/12/24 02:49 Buspirone HCl (Buspirone 15 Mg Tab) 15 mg PO BID [facility] Stop: 12/10/24 22:29 Last Admin: 11/12/24 08:25 Dose: 15 mg Clopidogrel Bisulfate (Clopidogrel Bisulfate 75 Mg Tab) 75 mg PO QAM [facility] Stop: 12/11/24 08:59 Last Admin: 11/12/24 08:25 Dose: 75 mg Ferrous Sulfate (Ferrous Sulfate 325 Mg Tab) 325 mg PO DAILY [facility] Stop: 12/11/24 08:59 Last Admin: 11/12/24 08:25 Dose: 325 mg Hydroxyzine HCl (Hydroxyzine Hcl 10 Mg Tab) 10 mg PO Q6H PRN PRN Reason: Anxiety/Agitation Stop: 12/12/24 07:47 Last Admin: 11/12/24 08:25 Dose: 10 mg Levothyroxine Sodium (Levothyroxine Sodium 75 Mcg Tablet) 75 mcg PO DAILYBB [facility] Stop: 12/11/24 06:29 Last Admin: 11/12/24 05:38 Dose: 75 mcg Melatonin (Melatonin 3 Mg Tab) 12 mg PO HS PRN PRN Reason: insomnia Stop: 12/11/24 20:59 Last Admin: 11/11/24 23:16 Dose: 12 mg Metoprolol Succinate (Metoprolol Succ 25mg Ext Rel Tab) 12.5 mg PO QAM [facility] Stop: 12/12/24 08:59 Last Admin: 11/12/24 08:25 Dose: Not Given Nystatin (Nystatin Powder 15gm Btl) 1 appln EXT BID [facility] Stop: 12/11/24 08:59 Last Admin: 11/12/24 08:25 Dose: 1 appln Ondansetron HCl (Ondansetron Inj 2 Mg/Ml 2 Ml Vial) 4 mg IV Q6H PRN PRN Reason: Nausea And Vomiting Stop: 12/12/24 10:52 Last Admin: 11/12/24 12:14 Dose: 4 mg Pantoprazole Sodium (Pantoprazole 40 Mg Tab) 40 mg PO [facility] YAN Stop: 12/11/24 08:59 Last Admin: 11/12/24 08:25 Dose: 40 mg Rosuvastatin Calcium (Rosuvastatin Calcium 10 Mg Tab) 10 mg PO HS YAN Stop: 12/11/24 20:59 Last Admin: 11/11/24 20:34 Dose: 10 mg Trazodone HCl (Trazodone Hcl 50 Mg Tab) 50 mg PO HS YAN Stop: 12/10/24 22:24 Last Admin: 11/11/24 21:55 Dose: 50 mg
--- NOTE | 2024-11-13 07:46 | Communication Note ---
Date of Service: November 13, 2024 Patient with recurrent 4 seconds sinus pause in AM. Patient asymptomatic. AP Episodic sinus pauses Hold beta-brendan Defer decision regarding cardio consultation to AM provider.
--- NOTE | 2024-11-13 12:07 | Cardiology Consultation ---
Date of Consultation November 13, 2024 Assessment & Plan (1) Permanent atrial fibrillation: (2) Tachy-chaim syndrome: (3) ASCVD (arteriosclerotic cardiovascular disease): (4) Aortic stenosis: (5) Diastolic congestive heart failure: (6) Atrial fibrillation with slow ventricular response: Plan 85-year-old female admitted on November 10, 2024 for evaluation of shortness of breath as well as a rash under the breasts. Telemetry monitoring with evidence of Tachy-Chaim Syndrome, likely permanent atrial fibrillation with periods of rapid ventricular response (up to 150 bpm) as well as episodes of bradycardia and pauses up to 4 seconds in duration despite being off all AV chanel blockers for at least the past 36 hours. No reversible cause identified. TSH within normal range. Options of management discussed. Permanent pacemaker implantation appears indicated though with significant logistical issues with cognitive deficits and previously noted inability to care for herself at home. Recommendations * Hold AV chanel blockers * Maintain telemetry * Consult Electrophysiology Supervising Physician Co-Signing Physician Notes Patient seen and examined. Past medical history, surgical history, social history and family history have been reviewed. The medical record and all the above studies have been reviewed. Case DW FABI including management. Permanent atrial fibrillation with tachy-chaim syndrome CAD s/p 1V CABG HFpEF Aortic stenosis HTN - uncontrolled -> better hold rate slowing meds for pacemaker implant on 11/14/34 Hold Eliquis NPO post MN correct and f/u electrolytes f/u renal function adjust anti-HTN meds keeping systolic BP between 100-140 mmHg avoid hypovolemia keep patient euvolemic DVT prophylaxis History of Present Illness Reason for Consultation: Frequent pauses up to four seconds, atrial fibrillation Requesting Physician: [facility], Dr. Fallon Attending Physician: [facility], Dr. Abelardo Fallon MD History of Present Illness Zoya Howard (Cecilia) is a 85-year-old female who was admitted to [facility] on November 10, 2024 for evaluation of shortness of breath as well as a rash under the breasts. Chart review reveals hospitalization in August 2024 with acute decompensated heart failure and inability to care for herself at home. Continuous telemetry monitoring this admission revealed pauses up to 3 seconds in duration while on metoprolol succinate 25 mg/day. Metoprolol held, last received on November 11, 2024. Despite holding beta-brendan therapy telemetry continues to show pauses with the longest lasting for seconds in duration at 404 this morning leading to this cardiology consultation. Personal review of telemetry monitoring also reveals atrial fibrillation with a rapid ventricular response. Patient does not appear to be a reliable source of information. Occasional palpitations noted on questioning. Patient denies chest pain. No current shortness of breath. Denies cough, orthopnea, PND, or peripherral edema. Denies excessive fatigue, weakness, lightheadedness, dizziness, near syncope, true syncope. No current fevers or chills. Denies melena, hematochezia, or hematuria. Past Medical and Surgical History: ASCVD. Status post CABG x 1 in 1998, receiving a SANDOVAL to the LAD Chronic diastolic congestive heart failure Permanent atrial fibrillation Aortic stenosis Hypertension Dyslipidemia Chronic kidney disease Hypothyroidism GERD, reflux esophagitis, history of peptic ulcer disease Dementia Anxiety/depression Spinal stenosis Cerebral meningioma Chart history of cerebellar infarct Migraine headaches Bilateral shoulder replacements Bilateral hip replacements Bilateral salpingo-oophorectomy Prior liposuction Bilateral cataract surgery Tonsillectomy as a child Family History: Mother at 84 with CHF. Father with an allergic reaction. Multiple siblings with CAD. Social History: Never smoker. No tobacco. No alcohol. No illegal drug use. . Lives in a personal-care [facility] of [facility]. One brother in [place] Allergies Allergy/AdvReac Type Severity Reaction Status Date / Time nitroglycerin AdvReac Severe "PROJECTILE Verified 11/10/24 19:53 VOMITTING" ergotamine AdvReac Intermediate vomiting Verified 11/10/24 19:53 Home Medications Medication Instructions Recorded Confirmed Type amlodipine 5 mg tablet (Norvasc) 5 mg PO QAM #30 tabs 05/21/24 11/10/24 Rx apixaban 2.5 mg tablet (Eliquis) 2.5 mg PO BID #60 tabs 05/21/24 11/10/24 Rx levothyroxine 75 mcg tablet 75 mcg PO DAILYBB #30 tabs 05/21/24 11/10/24 Rx (Synthroid) melatonin 10 mg capsule 10 mg PO HS #30 caps 05/21/24 11/10/24 Rx metoprolol succinate 25 mg 25 mg PO QAM #30 tabs 05/21/24 11/10/24 Rx tablet,extended release 24 hr calcitriol 0.25 mcg capsule 0.25 mcg PO 3XWK 07/16/24 11/10/24 History pantoprazole 40 mg tablet,delayed 40 mg PO AMHS 07/16/24 11/10/24 History release rosuvastatin 10 mg tablet 10 mg PO HS 07/16/24 11/10/24 History trazodone 50 mg tablet 50 mg PO HS 07/16/24 11/10/24 History acetaminophen 500 mg tablet 500 mg PO TID PRN Pain 08/21/24 11/10/24 History clopidogrel 75 mg tablet 75 mg PO QAM 08/21/24 11/10/24 History buspirone 15 mg tablet 15 mg PO BID 11/02/24 11/10/24 History ferrous sulfate 325 mg (65 mg 325 mg PO DAILY 11/02/24 11/10/24 History iron) tablet (FeroSul) Patient History Medical History Moderate dementia with anxiety Depression Arthritis Ambulatory dysfunction Generalized anxiety disorder Arthritis of right shoulder region Syncope and collapse Urinary incontinence Primary osteoarthritis, right shoulder DJD of left shoulder Chronic osteoarthritis Greater trochanteric bursitis of right hip Acute on chronic heart failure with preserved ejection fraction (HFpEF) KIM (acute kidney injury) Chest pain, atypical Sinus pause Labile hypertension Paroxysmal A-fib Precordial chest pain Hypercalcemia Hyperparathyroidism Sepsis due to pneumonia Pneumonia Acute on chronic diastolic CHF (congestive heart failure) Hypomagnesemia Hypophosphatemia History of coronary artery disease Precordial chest pain SOB (shortness of breath) Weakness Elevated troponin Costochondritis Confusion Acute alteration in mental status Ascending aorta dilation SOB (shortness of breath) Hypertension Asymptomatic bradycardia Acute renal failure superimposed on stage 3 chronic kidney disease Anemia, chronic disease Intractable nausea Problems related to lack of adequate sleep Delirium due to another medical condition, acute, hyperactive Mild cognitive impairment Iron deficiency anemia Chest pain Hiatal hernia with GERD and esophagitis Hypertension, uncontrolled Shortness of breath Acute UTI Chronic diastolic CHF (congestive heart failure) Breathlessness Atypical chest pain Acute on chronic heart failure with preserved ejection fraction BROUSSARD (dyspnea on exertion) Sleep-wake cycle disorder Mobitz type 1 second degree AV block (10/2023) Somatic dysfunction of sacroiliac joint History of blood transfusion 2012 2/2 GASTRIC ULCER History of gastric ulcer 2013 Spinal stenosis Gastric ulcer Atrial fibrillation with rapid ventricular response (11/2022) Fall Moderate mitral regurgitation Transient ischemic attack (TIA) ~2012>REASON FOR PLAVIX Osteoarthritis Chronic back pain Dyslipidemia Hypertension Surgical History 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 History of cardiac cath NO STENTS History of coronary artery bypass graft 1998 (1 VESSEL) S/P epidural steroid injection History of esophagogastroduodenoscopy (EGD) S/p reverse total shoulder arthroplasty RT/LEFT History of abdominoplasty PANNICULECTOMY History of colonoscopy History of arthroplasty of right hip History of arthroplasty of left hip History of hysterectomy with oophorectomy History of arthroplasty of left shoulder History of tonsillectomy and adenoidectomy H/O bilateral salpingo-oophorectomy with hyter Family History Father , age 74 Allergic reaction Mother , 80s CHF (congestive heart failure) Other No family history of adverse response to anesthesia Social History Smoking Status: Never smoker Second Hand Exposure: No; Do You Dip or Chew Tobacco: No; Tobacco Cessation Education Requested by Patient: No Hx Alcohol Use: No Hx Substance Use: No Preferred Language: [place] Communication Ability: Effective Visual Impairment: No Limitations Appeals Officer Required: No Beliefs That Will Affect Care: None marital status: Single Current Living Situation: Alone Current Living Situation Comment: independant apartment at [facility] How many Children do You have: 0 Other Information That Helps Us Care for You: No Feels Safe at Home: Yes Safety Concerns: Feels Safe At This Time Assistive Devices: Walker Review of Systems Review of Systems: Unable to be obtained. Physical Exam Physical Exam: General: Alert to person but not place or time. NAD. HENT: Normocephalic. Atraumatic. Eyes: PER. Conjunctiva pink, sclera clear. Neck: Carotid bruits. No JVD. Heart: Irregularly irregular at 56 bpm. Grade II/ systolic ejection murmur. No diastolic murmur. No rub. Chest: Rash under the breasts. Lungs: Diminished at the bases. Clear to auscultation. Abdomen: +BS. Soft. Nontender. No masses or organomegaly. Extremities: No clubbing, cyanosis, or edema. Limited neurological examination is without focal deficits. Pulses: Posterior tibial=2/4. Results & Data Vital Signs (Past 12 Hours) Vital Signs Temp Pulse Pulse Resp BP BP Pulse Ox 11/13/24 11:57 59 L 11/13/24 11:56 24 L 11/13/24 07:48 36.7 C 68 150/80 H 97 11/13/24 04:05 59 L 16 138/85 99 11/13/24 03:49 36.5 C 61 18 127/77 97 O2 Del Method 11/13/24 11:57 11/13/24 11:56 11/13/24 07:48 Room Air 11/13/24 04:05 Room Air 11/13/24 03:49 Room Air Laboratory Results Intake and Output 11/12/24 11/13/24 11/13/24 22:59 06:59 14:59 Other: Weight 64 kg [facility] Medications Administered Home Medications Medication Instructions Recorded Confirmed Last Taken amlodipine 5 mg tablet (Norvasc) 5 mg PO QAM #30 tabs 05/21/24 11/10/24 11/09/24 apixaban 2.5 mg tablet (Eliquis) 2.5 mg PO BID #60 tabs 05/21/24 11/10/24 11/09/24 levothyroxine 75 mcg tablet 75 mcg PO DAILYBB #30 tabs 05/21/24 11/10/24 11/09/24 (Synthroid) melatonin 10 mg capsule 10 mg PO HS #30 caps 05/21/24 11/10/24 11/09/24 metoprolol succinate 25 mg 25 mg PO QAM #30 tabs 05/21/24 11/10/24 11/09/24 tablet,extended release 24 hr calcitriol 0.25 mcg capsule 0.25 mcg PO 3XWK 07/16/24 11/10/24 11/07/24 pantoprazole 40 mg tablet,delayed 40 mg PO AMHS 07/16/24 11/10/24 11/09/24 release rosuvastatin 10 mg tablet 10 mg PO HS 07/16/24 11/10/24 11/09/24 trazodone 50 mg tablet 50 mg PO HS 07/16/24 11/10/24 11/09/24 acetaminophen 500 mg tablet 500 mg PO TID PRN Pain 08/21/24 11/10/24 Unknown clopidogrel 75 mg tablet 75 mg PO QAM 08/21/24 11/10/24 11/09/24 buspirone 15 mg tablet 15 mg PO BID 11/02/24 11/10/24 11/09/24 ferrous sulfate 325 mg (65 mg 325 mg PO DAILY 11/02/24 11/10/24 11/09/24 iron) tablet (FeroSul) Active Medications Generic Name Dose Route Start Last Admin Trade Name Donny PRN Reason Stop Dose Admin Amlodipine Besylate 5 mg 11/11/24 09:00 11/13/24 10:05 Amlodipine Besylate 5 Mg Tab PO 12/11/24 08:59 5 mg QAM YAN Administration Apixaban 2.5 mg 11/10/24 22:30 11/13/24 10:06 Apixaban 2.5 Mg Tab PO 12/10/24 22:29 2.5 mg BID YAN Administration Buspirone HCl 15 mg 11/10/24 22:30 11/13/24 09:34 Buspirone 15 Mg Tab PO 12/10/24 22:29 15 mg BID YAN Administration Clopidogrel Bisulfate 75 mg 11/11/24 09:00 11/13/24 09:34 Clopidogrel Bisulfate 75 Mg Tab PO 12/11/24 08:59 75 mg QAM YAN Administration Ferrous Sulfate 325 mg 11/11/24 09:00 11/13/24 09:35 Ferrous Sulfate 325 Mg Tab PO 12/11/24 08:59 325 mg DAILY YAN Administration Hydroxyzine HCl 10 mg 11/12/24 07:48 11/12/24 17:11 Hydroxyzine Hcl 10 Mg Tab PO 12/12/24 07:47 10 mg Q6H PRN Administration Anxiety/Agitation Levothyroxine Sodium 75 mcg 11/11/24 06:30 11/13/24 06:04 Levothyroxine Sodium 75 Mcg Tablet PO 12/11/24 06:29 75 mcg DAILYBB YAN Administration Melatonin 12 mg 11/11/24 02:14 11/13/24 00:34 Melatonin 3 Mg Tab PO 12/11/24 20:59 12 mg HS PRN Administration insomnia Metoprolol Succinate 12.5 mg 11/12/24 09:00 11/12/24 08:25 Metoprolol Succ 25mg Ext Rel Tab PO 12/12/24 08:59 Not Given QAM YAN Nystatin 1 appln 11/11/24 09:00 11/13/24 09:41 Nystatin Powder 15gm Btl EXT 12/11/24 08:59 1 appln BID YAN Administration Ondansetron HCl 4 mg 11/12/24 10:53 11/12/24 12:14 Ondansetron Inj 2 Mg/Ml 2 Ml Vial IV 12/12/24 10:52 4 mg Q6H PRN Administration Nausea And Vomiting Pantoprazole Sodium 40 mg 11/11/24 09:00 11/13/24 09:35 Pantoprazole 40 Mg Tab PO 12/11/24 08:59 40 mg AMHS YAN Administration Rosuvastatin Calcium 10 mg 11/11/24 21:00 11/12/24 19:58 Rosuvastatin Calcium 10 Mg Tab PO 12/11/24 20:59 10 mg HS YAN Administration Trazodone HCl 50 mg 11/10/24 22:25 11/12/24 21:45 Trazodone Hcl 50 Mg Tab PO 12/10/24 22:24 50 mg HS YAN Administration PG Care Time/CCT Total # of Minutes Spent Total Time Spent with Patient: Total time spent is greater than 50% in coordination of care (as documented) at patient's floor/unit and/or counseling patient. I spent a total of 75 on the date of service in preparation, delivery, and documentation of the care provided to this patient excluding any time spent in the performance of separately billed services. This visit was a split-shared visit with the substantive portion of the medical decision making performed by the supervising brim and crown presser/billing provider. Coding Level of Care Code 98780 IN/OBS CONSULT LVL 5,80M Diagnoses Permanent atrial fibrillation I48.21 Tachy-chaim syndrome I49.5 ASCVD (arteriosclerotic cardiovascular disease) I25.10 Aortic stenosis I35.0 Diastolic congestive heart failure I50.30 Atrial fibrillation with slow ventricular response I48.91
--- NOTE | 2024-11-13 14:32 | Hospitalist Progress Note ---
Date of Service November 13, 2024 Assessment & Plan (1) SOB (shortness of breath): Plan: Shortness of breath Possibly from uncontrolled HTN, CXR w/ no congestion. Complicated by anxiety Missed medications secondary to patient's cognitive impairment/dementia Recurrent issue for patient on review of records c/w home meds, monitor. Has had an episode of shortness of breath this morning with anxiety and chest tightness Remains hemodynamically stable and was afebrile, saturating normally on room air Condition settled down with reassurance and keeping 10 mg of hydroxyzine Will monitor while in the hospital Remains free from any shortness of breath or anxiety Sinus kthxcy-Rvrro-Atplk Syndrome Noted to up to 3.5-second pause Atrial fibrillation with bradycardia at times Her metoprolol dose has been decreased EKG was unremarkable Will correct electrolytes if decreased Doubt any other significant problem 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 with an episode of 4-second pause yesterday Cardiology has been consulted Tried to call the brother to get them approval for pacemaker if she needs it but no reply Intertrigo Likely fungal, worsening rash secondary to unable to apply topical medication provided by ED from last week's visit, c/w topical antifungal underneath breast tissues Showing improvement of the rash Dementia Has Mild Dementia Complicated by Anxiety/Mood disorder Other chronic medical conditions: Continue with/resume home meds as when able. H/O chronic diastolic heart failure (EF 60 to 65%, TTE 2024), euvolemic to dry Valvular heart disease (mild MR/TR) H/O CAD status post CABG/PVD/CVA A-fib on Eliquis H spam call yperlipidemia on statin rx Hypothyroidism, euthyroid as of today's TSH Hypercalcemia, possible primary hyperparathyroidism, elevated PTH on review of outpatient blood work, f/u endocrine as OP. Ca normalized. Anxiety/mood disorder, at baseline Past tobacco abuse PT OT eval Social service re: contact office of aging about patient readmission due to inability to care for self DVT prophylaxis. Deana Full code Patient's brother Mr. Matt Boles, contact #[phone]. Text document was generated using [employer] voice recognition software. It may contain grammatical or spelling errors. Kindly contact undersigned for clarification of any documentation item in question. Admission and Anticipated Discharge Date Admission Date: November 13, 2024 Subjective Patient was seen and examined in medical telemetry unit She has dementia and anxiety disorder noted to be very anxious this morning, with chest pressure shortness of breath and nausea Denies any abdominal pain, nausea but no vomiting, no fever and no chills and has been saturating normally on room air Reassured and she was given 10 mg of hydroxyzine 11/13/2024 The patient was seen and examined in medical telemetry unit She has been feeling her best today Noted to have another episode of sinus pause of 4 seconds Denies any significant symptoms Review of Systems Review of Systems: All systems reviewed and are unremarkable except as noted below Physical Exam Physical Exam: Lying in bed with anxiety and questionable shortness of breath Constitutional: well developed, well nourished and + ill appearing Eyes: PERRL, conjunctivae normal, anicteric sclerae ENMT: external ear and nose normal, oropharynx normal Neck: trachea midline, no thyromegaly Respiratory: no respiratory distress Auscultation: lungs clear to auscultation bilaterally Cardiovascular: Rate/Rhythm: regular rate and regular rhythm; not tachycardic Heart Sounds: normal S1, normal S2 and + murmur Extremities: no edema Gastrointestinal (Abdomen): Inspection/Auscultation: normal bowel sounds; abdomen not distended Percussion/Palpation: abdomen soft; abdomen nontender Neurologic: normal touch/pain/proprioception and moves all extremities; no focal motor deficits and not confused Lymphatic: no cervical or axillary lymphadenopathy Results & Data Results & Data Vital Signs (Past 12 Hours) Vital Signs Temp Pulse Pulse Resp BP BP Pulse Ox 11/13/24 12:17 36.4 C L 77 18 129/84 98 11/13/24 11:57 59 L 11/13/24 11:56 24 L 11/13/24 07:48 36.7 C 68 150/80 H 97 11/13/24 04:05 59 L 16 138/85 99 11/13/24 03:49 36.5 C 61 18 127/77 97 O2 Del Method 11/13/24 12:17 Room Air 11/13/24 11:57 11/13/24 11:56 11/13/24 07:48 Room Air 11/13/24 04:05 Room Air 11/13/24 03:49 Room Air Medications Administered Current Inpatient Medications Amlodipine Besylate (Amlodipine Besylate 5 Mg Tab) 5 mg PO QAM [facility] Stop: 12/11/24 08:59 Last Admin: 11/13/24 10:05 Dose: 5 mg Apixaban (Apixaban 2.5 Mg Tab) 2.5 mg PO BID [facility] Stop: 12/10/24 22:29 Last Admin: 11/13/24 10:06 Dose: 2.5 mg Artificial Tears (Artificial Tears) 1 drops OPB QID PRN PRN Reason: Dryness Stop: 12/11/24 13:42 Atropine Sulfate (Atropine Sulfate 0.1 Mg/Ml 10ml Syr) 1 mg IV Q3M PRN PRN Reason: symptomatic bradycardia Stop: 12/12/24 02:49 Buspirone HCl (Buspirone 15 Mg Tab) 15 mg PO BID [facility] Stop: 12/10/24 22:29 Last Admin: 11/13/24 09:34 Dose: 15 mg Clopidogrel Bisulfate (Clopidogrel Bisulfate 75 Mg Tab) 75 mg PO QAM [facility] Stop: 12/11/24 08:59 Last Admin: 11/13/24 09:34 Dose: 75 mg Ferrous Sulfate (Ferrous Sulfate 325 Mg Tab) 325 mg PO DAILY [facility] Stop: 12/11/24 08:59 Last Admin: 11/13/24 09:35 Dose: 325 mg Hydroxyzine HCl (Hydroxyzine Hcl 10 Mg Tab) 10 mg PO Q6H PRN PRN Reason: Anxiety/Agitation Stop: 12/12/24 07:47 Last Admin: 11/12/24 17:11 Dose: 10 mg Levothyroxine Sodium (Levothyroxine Sodium 75 Mcg Tablet) 75 mcg PO DAILYBB [facility] Stop: 12/11/24 06:29 Last Admin: 11/13/24 06:04 Dose: 75 mcg Melatonin (Melatonin 3 Mg Tab) 12 mg PO HS PRN PRN Reason: insomnia Stop: 12/11/24 20:59 Last Admin: 11/13/24 00:34 Dose: 12 mg Metoprolol Succinate (Metoprolol Succ 25mg Ext Rel Tab) 12.5 mg PO QAM [facility] Stop: 12/12/24 08:59 Last Admin: 11/12/24 08:25 Dose: Not Given Nystatin (Nystatin Powder 15gm Btl) 1 appln EXT BID [facility] Stop: 12/11/24 08:59 Last Admin: 11/13/24 09:41 Dose: 1 appln Ondansetron HCl (Ondansetron Inj 2 Mg/Ml 2 Ml Vial) 4 mg IV Q6H PRN PRN Reason: Nausea And Vomiting Stop: 12/12/24 10:52 Last Admin: 11/12/24 12:14 Dose: 4 mg Pantoprazole Sodium (Pantoprazole 40 Mg Tab) 40 mg PO [facility] Stop: 12/11/24 08:59 Last Admin: 11/13/24 09:35 Dose: 40 mg Rosuvastatin Calcium (Rosuvastatin Calcium 10 Mg Tab) 10 mg PO HS [facility] Stop: 12/11/24 20:59 Last Admin: 11/12/24 19:58 Dose: 10 mg Trazodone HCl (Trazodone Hcl 50 Mg Tab) 50 mg PO HS [facility] Stop: 12/10/24 22:24 Last Admin: 11/12/24 21:45 Dose: 50 mg
--- NOTE | 2024-11-14 09:35 | Hospitalist Progress Note ---
Date of Service November 14, 2024 Assessment & Plan (1) SOB (shortness of breath): Plan: Shortness of breath Possibly from uncontrolled HTN, CXR w/ no congestion. Complicated by anxiety Missed medications secondary to patient's cognitive impairment/dementia Recurrent issue for patient on review of records c/w home meds, monitor. Has had an episode of shortness of breath this morning with anxiety and chest tightness Remains hemodynamically stable and was afebrile, saturating normally on room air Condition settled down with reassurance and keeping 10 mg of hydroxyzine Will monitor while in the hospital Remains free from any shortness of breath or anxiety No more shortness of breath and no anxiety Saturating normally on room air Sinus htowbc-Aqurn-Rtfwh Syndrome Noted to up to 3.5-second pause Atrial fibrillation with bradycardia at times Her metoprolol dose has been decreased EKG was unremarkable Will correct electrolytes if decreased Doubt any other significant problem 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 with an episode of 4-second pause yesterday Cardiology has been consulted Tried to call the brother to get them approval for pacemaker if she needs it but no reply Patient seems to be capable of giving the consent for the pacemaker as she understands the procedure and knows without that her heart rate can go down and can cause serious problems Tried to talk to her brother but again no response since last evening even after trial of multiple times Intertrigo Likely fungal, worsening rash secondary to unable to apply topical medication provided by ED from last week's visit, c/w topical antifungal underneath breast tissues Showing improvement of the rash Dementia Has Mild Dementia Complicated by Anxiety/Mood disorder Does not have any acute confusion 6 Other chronic medical conditions: Continue with/resume home meds as when able. H/O chronic diastolic heart failure (EF 60 to 65%, TTE 2024), euvolemic to dry Valvular heart disease (mild MR/TR) H/O CAD status post CABG/PVD/CVA A-fib on Eliquis H spam call yperlipidemia on statin rx Hypothyroidism, euthyroid as of today's TSH Hypercalcemia, possible primary hyperparathyroidism, elevated PTH on review of outpatient blood work, f/u endocrine as OP. Ca normalized. Anxiety/mood disorder, at baseline Past tobacco abuse PT OT eval Social service re: contact office of aging about patient readmission due to inability to care for self DVT prophylaxis. Eliquis Full code Patient's brother Mr. Matt Boles, contact #[phone]. Text document was generated using [employer] voice recognition software. It may contain grammatical or spelling errors. Kindly contact undersigned for clarification of any documentation item in question. Admission and Anticipated Discharge Date Admission Date: November 13, 2024 Subjective Patient was seen and examined in medical telemetry unit She has dementia and anxiety disorder noted to be very anxious this morning, with chest pressure shortness of breath and nausea Denies any abdominal pain, nausea but no vomiting, no fever and no chills and has been saturating normally on room air Reassured and she was given 10 mg of hydroxyzine 11/13/2024 The patient was seen and examined in medical telemetry unit She has been feeling her best today Noted to have another episode of sinus pause of 4 seconds Denies any significant symptoms 11/14/2024 The patient was seen and examined in medical telemetry unit She was very anxious to have the procedure but later on after explaining she was happy about it Tried to call her brother but again no response since last evening She seems to be understanding about the procedure and telling that she wants to have the procedure done to avoid any problem with her heart in future She has been otherwise stable without any symptoms this morning Review of Systems Review of Systems: All systems reviewed and are unremarkable except as noted below Physical Exam Physical Exam: Lying in bed with anxiety and questionable shortness of breath Constitutional: well developed, well nourished and + ill appearing Eyes: PERRL, conjunctivae normal, anicteric sclerae ENMT: external ear and nose normal, oropharynx normal Neck: trachea midline, no thyromegaly Respiratory: no respiratory distress Auscultation: lungs clear to auscultation bilaterally Cardiovascular: Rate/Rhythm: regular rate and regular rhythm; not tachycardic Heart Sounds: normal S1, normal S2 and + murmur Extremities: no edema Gastrointestinal (Abdomen): Inspection/Auscultation: normal bowel sounds; abdomen not distended Percussion/Palpation: abdomen soft; abdomen nontender Neurologic: normal touch/pain/proprioception and moves all extremities; no focal motor deficits and not confused Lymphatic: no cervical or axillary lymphadenopathy Results & Data Results & Data Vital Signs (Past 12 Hours) Vital Signs Temp Pulse Pulse Resp BP BP Pulse Ox 11/14/24 07:42 36.7 C 75 18 158/82 H 97 11/14/24 03:13 36.6 C 92 H 16 138/83 97 11/14/24 01:27 111 H 11/13/24 23:24 36.8 C 59 L 16 113/77 93 11/13/24 22:00 11/13/24 21:54 70 Pulse Ox O2 Del Method O2 Del Method 11/14/24 07:42 Room Air 11/14/24 03:13 Room Air 11/14/24 01:27 11/13/24 23:24 Room Air 11/13/24 22:00 96 Room Air 11/13/24 21:54 Medications Administered Current Inpatient Medications Amlodipine Besylate (Amlodipine Besylate 5 Mg Tab) 5 mg PO QAM [facility] Stop: 12/11/24 08:59 Last Admin: 11/14/24 08:46 Dose: 5 mg Apixaban (Apixaban 2.5 Mg Tab) 2.5 mg PO BID [facility] Stop: 12/10/24 22:29 Last Admin: 11/13/24 10:06 Dose: 2.5 mg Artificial Tears (Artificial Tears) 1 drops OPB QID PRN PRN Reason: Dryness Stop: 12/11/24 13:42 Atropine Sulfate (Atropine Sulfate 0.1 Mg/Ml 10ml Syr) 1 mg IV Q3M PRN PRN Reason: symptomatic bradycardia Stop: 12/12/24 02:49 Buspirone HCl (Buspirone 15 Mg Tab) 15 mg PO BID [facility] Stop: 12/10/24 22:29 Last Admin: 11/14/24 08:46 Dose: 15 mg Clopidogrel Bisulfate (Clopidogrel Bisulfate 75 Mg Tab) 75 mg PO QAM [facility] Stop: 12/11/24 08:59 Last Admin: 11/14/24 08:47 Dose: 75 mg Ferrous Sulfate (Ferrous Sulfate 325 Mg Tab) 325 mg PO DAILY [facility] Stop: 12/11/24 08:59 Last Admin: 11/14/24 08:46 Dose: 325 mg Hydroxyzine HCl (Hydroxyzine Hcl 10 Mg Tab) 10 mg PO Q6H PRN PRN Reason: Anxiety/Agitation Stop: 12/12/24 07:47 Last Admin: 11/13/24 22:08 Dose: 10 mg Levothyroxine Sodium (Levothyroxine Sodium 75 Mcg Tablet) 75 mcg PO DAILYBB [facility] Stop: 12/11/24 06:29 Last Admin: 11/14/24 05:35 Dose: 75 mcg Melatonin (Melatonin 3 Mg Tab) 12 mg PO HS PRN PRN Reason: insomnia Stop: 12/11/24 20:59 Last Admin: 11/13/24 00:34 Dose: 12 mg Metoprolol Succinate (Metoprolol Succ 25mg Ext Rel Tab) 12.5 mg PO QAM [facility] Stop: 12/12/24 08:59 Last Admin: 11/12/24 08:25 Dose: Not Given Nystatin (Nystatin Powder 15gm Btl) 1 appln EXT BID [facility] Stop: 12/11/24 08:59 Last Admin: 11/14/24 08:45 Dose: 1 appln Ondansetron HCl (Ondansetron Inj 2 Mg/Ml 2 Ml Vial) 4 mg IV Q6H PRN PRN Reason: Nausea And Vomiting Stop: 12/12/24 10:52 Last Admin: 11/12/24 12:14 Dose: 4 mg Pantoprazole Sodium (Pantoprazole 40 Mg Tab) 40 mg PO [facility] Stop: 12/11/24 08:59 Last Admin: 11/14/24 08:47 Dose: 40 mg Rosuvastatin Calcium (Rosuvastatin Calcium 10 Mg Tab) 10 mg PO HS [facility] Stop: 12/11/24 20:59 Last Admin: 11/13/24 20:22 Dose: 10 mg Trazodone HCl (Trazodone Hcl 50 Mg Tab) 50 mg PO HS [facility] Stop: 12/10/24 22:24 Last Admin: 11/13/24 21:49 Dose: 50 mg
--- NOTE | 2024-11-14 11:44 | Cardiology Progress Note ---
Date of Service November 14, 2024 Assessment & Plan (1) Permanent atrial fibrillation: (2) Tachy-chaim syndrome: (3) ASCVD (arteriosclerotic cardiovascular disease): (4) Aortic stenosis: (5) Diastolic congestive heart failure: (6) Atrial fibrillation with slow ventricular response: Plan 85-year-old female admitted on November 10, 2024 for evaluation of shortness of breath as well as a rash under the breasts. Telemetry monitoring with evidence of Tachy-Chaim Syndrome, likely permanent atrial fibrillation with periods of rapid ventricular response (up to 150 bpm) as well as episodes of bradycardia and pauses up to 4 seconds in duration despite being off all AV chanel blockers for at least the past 36 hours. No reversible cause identified. TSH within normal range. Options of management discussed. Permanent pacemaker implantation appears indicated though with significant logistical issues with cognitive deficits and previously noted inability to care for herself at home. Permanent atrial fibrillation with tachy-chaim syndrome CAD s/p 1V CABG HFpEF Aortic stenosis HTN - uncontrolled -> better hold rate slowing meds for pacemaker implant today Held Eliquis NPO correct and f/u electrolytes f/u renal function adjust anti-HTN meds keeping systolic BP between 100-140 mmHg avoid hypovolemia keep patient euvolemic DVT prophylaxis Admission and Anticipated Discharge Date Admission Date: November 13, 2024 Supervising Physician Co-Signing Physician Notes Subjective Patient on exam is lying in bed in NAD; no c/o cp, sob, palpitations, dizziness, LOC Review of Systems Review of Systems: Unable to be obtained. Physical Exam Physical Exam: General: awake, alert, NAD. HENT: Normocephalic. Atraumatic. Eyes: Conjunctiva pink, anicteric sclerae. Neck: soft, NT, No JVD. Heart: Irregularly irregular. Grade II/ systolic ejection murmur. Chest: no rales, no wheezing Lungs: Diminished at the bases. Clear to auscultation. Abdomen: +BS. Soft. Nontender. No masses or organomegaly. Extremities: No clubbing, cyanosis, or edema. Limited neurological examination is without focal deficits. Results & Data Vital Signs (Past 12 Hours) Vital Signs Vital Signs Temp 36.4 C L 11/14/24 11:09 Pulse 77 11/14/24 11:09 Resp 16 11/14/24 11:09 BP 137/88 11/14/24 11:09 Pulse Ox 91 11/14/24 11:09 O2 Del Method Room Air 11/14/24 11:09 O2 Flow Rate 0 11/11/24 11:03 Intake & Output 11/13/24 11/14/24 11/14/24 18:59 06:59 18:59 Intake Total 240 / 600 360 / 600 Balance 240 / 600 360 / 600 Weight 62.8 kg Intake: Oral 240 / 600 360 / 600 Other: Other Intake Source npo@ midnight Weight Measurement Method Standing Scale Temp Pulse Pulse Resp BP BP Pulse Ox 11/14/24 11:09 36.4 C L 77 16 137/88 91 11/14/24 07:42 36.7 C 75 18 158/82 H 97 11/14/24 03:13 36.6 C 92 H 16 138/83 97 11/14/24 01:27 111 H O2 Del Method 11/14/24 11:09 Room Air 11/14/24 07:42 Room Air 11/14/24 03:13 Room Air 11/14/24 01:27 Laboratory Results Laboratory Results WBC 4.81 K/ul (4.8-10.8) 11/12/24 05:34 RBC 4.00 M/uL (4.20-5.40) L 11/12/24 05:34 Hgb 12.0 g/dl (12.0-16.0) 11/12/24 05:34 Hct 36.7 % (37.0-47.0) L 11/12/24 05:34 MCV 91.8 fL (80.0-100.0) 11/12/24 05:34 MCH 30.0 pg (25.0-34.0) 11/12/24 05:34 MCHC 32.7 g/dL (32.0-36.0) 11/12/24 05:34 RDW Std Deviation 45.1 fL (36.4-46.3) 11/12/24 05:34 RDW Coeff of Howie 13.3 % (11.5-14.5) 11/12/24 05:34 Plt Count 159 K/uL (130-400) 11/12/24 05:34 MPV 9.8 fL (9.4-12.4) 11/12/24 05:34 Immature Gran % (Auto) 0.2 % 11/11/24 05:22 Neut % (Auto) 43.3 % 11/11/24 05:22 Lymph % (Auto) 37.9 % 11/11/24 05:22 Hanson % (Auto) 14.4 % 11/11/24 05:22 Eos % (Auto) 3.3 % 11/11/24 05:22 Baso % (Auto) 0.9 % 11/11/24 05:22 Neut # (Auto) 1.99 K/uL (1.40-6.50) 11/11/24 05:22 Lymph # (Auto) 1.74 K/uL (1.20-3.40) 11/11/24 05:22 Hanson # (Auto) 0.66 K/uL (0.11-0.59) H 11/11/24 05:22 Eos # (Auto) 0.15 K/uL (0.00-0.50) 11/11/24 05:22 Baso # (Auto) 0.04 K/uL (0.00-0.20) 11/11/24 05:22 Immature Gran # (Auto) 0.01 K/uL (0.01-0.20) 11/11/24 05:22 PT 12.3 Seconds (9.0-12.0) H 11/10/24 20:00 INR 1.1 (0.9-1.1) 11/10/24 20:00 APTT 27 Seconds (21-31) 11/10/24 20:00 PTT Ratio 1.0 11/10/24 20:00 Sodium 140 mmol/L (136-145) 11/12/24 05:34 Potassium 3.8 mmol/L (3.5-5.1) 11/12/24 05:34 Chloride 109 mmol/L (98-107) H 11/12/24 05:34 Carbon Dioxide 24 mmol/L (21-32) 11/12/24 05:34 Anion Gap 7 (3-11) 11/12/24 05:34 BUN 16 mg/dl (6-23) 11/12/24 05:34 Creatinine 1.13 mg/dl (0.6-1.2) 11/12/24 05:34 Est Cr Clr Drug Dosing 31.8 ml/min 11/12/24 05:34 eGFR 47.09 11/12/24 05:34 BUN/Creatinine Ratio 14.2 (10-20) 11/12/24 05:34 Glucose 88 mg/dl (70-99(Fasting)) 11/12/24 05:34 Calcium 9.8 mg/dl (8.6-10.3) 11/12/24 05:34 Phosphorus 3.2 mg/dl (2.5-4.9) 11/12/24 05:34 Magnesium 1.9 mg/dl (1.7-2.4) 11/12/24 05:34 Total Bilirubin 1.1 mg/dl (0.2-1.0) H 11/10/24 20:00 AST 16 U/L (13-39) 11/10/24 20:00 ALT 9 U/L (7-52) 11/10/24 20:00 Alkaline Phosphatase 65 U/L (34-104) 11/10/24 20:00 Troponin I High Sens 13.5 pg/ml (0-14) 11/10/24 20:00 Total Protein 7.0 gm/dl (6.0-8.3) 11/10/24 20:00 Albumin 3.8 gm/dl (3.4-5.0) 11/10/24 20:00 Globulin 3.2 gm/dl (2.5-4.0) 11/10/24 20:00 Albumin/Globulin Ratio 1.2 (0.9-2) 11/10/24 20:00 25-OH Vitamin D Total 13.5 ng/ml (30-100) L 11/11/24 05:22 TSH 1.213 uIu/ml (0.300-4.500) 11/10/24 20:00 PTH Intact 104.0 pg/ml (12.0-88.0) H 11/11/24 05:22 Urine Color Yellow 11/10/24 18:44 Urine Appearance Clear (Clear) 11/10/24 18:44 Urine pH 8.0 (4.5-7.5) H 11/10/24 18:44 Ur Specific Parker 1.010 (1.000-1.030) 11/10/24 18:44 Urine Protein Trace (Negative) H 11/10/24 18:44 Urine Glucose (UA) Negative (Negative) 11/10/24 18:44 Urine Ketones Trace (Negative) H 11/10/24 18:44 Urine Blood Negative (Negative) 11/10/24 18:44 Urine Nitrite Negative (Negative) 11/10/24 18:44 Urine Bilirubin Negative (Negative) 11/10/24 18:44 Urine Urobilinogen Negative (Negative) 11/10/24 18:44 Ur Leukocyte Esterase Negative (Negative) 11/10/24 18:44 Urine WBC (Auto) 0-5 /hpf (0-5) 11/10/24 18:44 Urine RBC (Auto) 0-2 /hpf (0-2) 11/10/24 18:44 U Hyaline Cast (Auto) 0-2 /lpf (0-2) 11/10/24 18:44 U Epithel Cells (Auto) 0-2 /hpf (0-2) 11/10/24 18:44 Urine Bacteria (Auto) None Seen (None Seen) 11/10/24 18:44 Urine Comment 11/10/24 18:44 Impressions 11/14/24 ECHO Interpretation Summary Left ventricular systolic function is normal. Left Ventricular Ejection Fraction = 55-60%. The left atrium is moderately dilated. The right atrium is moderately dilated. Mild aortic regurgitation. Mild pulmonic valvular regurgitation. There is moderate mitral regurgitation. There is moderate to severe tricuspid regurgitation. Mild to moderate valvular aortic stenosis. Diagnostic Findings Laboratory Results WBC 4.81 K/ul (4.8-10.8) 11/12/24 05:34 RBC 4.00 M/uL (4.20-5.40) L 11/12/24 05:34 Hgb 12.0 g/dl (12.0-16.0) 11/12/24 05:34 Hct 36.7 % (37.0-47.0) L 11/12/24 05:34 MCV 91.8 fL (80.0-100.0) 11/12/24 05:34 MCH 30.0 pg (25.0-34.0) 11/12/24 05:34 MCHC 32.7 g/dL (32.0-36.0) 11/12/24 05:34 RDW Std Deviation 45.1 fL (36.4-46.3) 11/12/24 05:34 RDW Coeff of Howie 13.3 % (11.5-14.5) 11/12/24 05:34 Plt Count 159 K/uL (130-400) 11/12/24 05:34 MPV 9.8 fL (9.4-12.4) 11/12/24 05:34 Immature Gran % (Auto) 0.2 % 11/11/24 05:22 Neut % (Auto) 43.3 % 11/11/24 05:22 Lymph % (Auto) 37.9 % 11/11/24 05:22 Hanson % (Auto) 14.4 % 11/11/24 05:22 Eos % (Auto) 3.3 % 11/11/24 05:22 Baso % (Auto) 0.9 % 11/11/24 05:22 Neut # (Auto) 1.99 K/uL (1.40-6.50) 11/11/24 05:22 Lymph # (Auto) 1.74 K/uL (1.20-3.40) 11/11/24 05:22 Hanson # (Auto) 0.66 K/uL (0.11-0.59) H 11/11/24 05:22 Eos # (Auto) 0.15 K/uL (0.00-0.50) 11/11/24 05:22 Baso # (Auto) 0.04 K/uL (0.00-0.20) 11/11/24 05:22 Immature Gran # (Auto) 0.01 K/uL (0.01-0.20) 11/11/24 05:22 PT 12.3 Seconds (9.0-12.0) H 11/10/24 20:00 INR 1.1 (0.9-1.1) 11/10/24 20:00 APTT 27 Seconds (21-31) 11/10/24 20:00 PTT Ratio 1.0 11/10/24 20:00 Sodium 140 mmol/L (136-145) 11/12/24 05:34 Potassium 3.8 mmol/L (3.5-5.1) 11/12/24 05:34 Chloride 109 mmol/L (98-107) H 11/12/24 05:34 Carbon Dioxide 24 mmol/L (21-32) 11/12/24 05:34 Anion Gap 7 (3-11) 11/12/24 05:34 BUN 16 mg/dl (6-23) 11/12/24 05:34 Creatinine 1.13 mg/dl (0.6-1.2) 11/12/24 05:34 Est Cr Clr Drug Dosing 31.8 ml/min 11/12/24 05:34 eGFR 47.09 11/12/24 05:34 BUN/Creatinine Ratio 14.2 (10-20) 11/12/24 05:34 Glucose 88 mg/dl (70-99(Fasting)) 11/12/24 05:34 Calcium 9.8 mg/dl (8.6-10.3) 11/12/24 05:34 Phosphorus 3.2 mg/dl (2.5-4.9) 11/12/24 05:34 Magnesium 1.9 mg/dl (1.7-2.4) 11/12/24 05:34 Total Bilirubin 1.1 mg/dl (0.2-1.0) H 11/10/24 20:00 AST 16 U/L (13-39) 11/10/24 20:00 ALT 9 U/L (7-52) 11/10/24 20:00 Alkaline Phosphatase 65 U/L (34-104) 11/10/24 20:00 Troponin I High Sens 13.5 pg/ml (0-14) 11/10/24 20:00 Total Protein 7.0 gm/dl (6.0-8.3) 11/10/24 20:00 Albumin 3.8 gm/dl (3.4-5.0) 11/10/24 20:00 Globulin 3.2 gm/dl (2.5-4.0) 11/10/24 20:00 Albumin/Globulin Ratio 1.2 (0.9-2) 11/10/24 20:00 25-OH Vitamin D Total 13.5 ng/ml (30-100) L 11/11/24 05:22 TSH 1.213 uIu/ml (0.300-4.500) 11/10/24 20:00 PTH Intact 104.0 pg/ml (12.0-88.0) H 11/11/24 05:22 Urine Color Yellow 11/10/24 18:44 Urine Appearance Clear (Clear) 11/10/24 18:44 Urine pH 8.0 (4.5-7.5) H 11/10/24 18:44 Ur Specific Parker 1.010 (1.000-1.030) 11/10/24 18:44 Urine Protein Trace (Negative) H 11/10/24 18:44 Urine Glucose (UA) Negative (Negative) 11/10/24 18:44 Urine Ketones Trace (Negative) H 11/10/24 18:44 Urine Blood Negative (Negative) 11/10/24 18:44 Urine Nitrite Negative (Negative) 11/10/24 18:44 Urine Bilirubin Negative (Negative) 11/10/24 18:44 Urine Urobilinogen Negative (Negative) 11/10/24 18:44 Ur Leukocyte Esterase Negative (Negative) 11/10/24 18:44 Urine WBC (Auto) 0-5 /hpf (0-5) 11/10/24 18:44 Urine RBC (Auto) 0-2 /hpf (0-2) 11/10/24 18:44 U Hyaline Cast (Auto) 0-2 /lpf (0-2) 11/10/24 18:44 U Epithel Cells (Auto) 0-2 /hpf (0-2) 11/10/24 18:44 Urine Bacteria (Auto) None Seen (None Seen) 11/10/24 18:44 Urine Comment 11/10/24 18:44 Impressions Chest X-Ray 11/10/24 18:44 Clinical History: Weakness Technique: A frontal view of the chest was obtained Findings: There are no confluent pulmonary infiltrates. The heart is mildly enlarged. No pleural effusion or pneumothorax is seen. There is no definite pulmonary nodule. Sternal wires are present. There are bilateral shoulder replacements Impression: Mild cardiomegaly Electronically signed by Dhaval Obregon 11-10-2024 7:[address] 11/10/24 18:44 Exam: CT head/brain without contrast. Reason for exam: Confusion. Previous studies: CT head 09/01/2024 FINDINGS: No intracranial mass, hemorrhage or edema is found. 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 There is diffuse atrophy and lucency in the deep white matter. Extensive atherosclerotic calcification seen in the cerebral arteries. Ventricular size is stable. IMPRESSION: 1. Negative for acute intracranial process. No mass or hemorrhage. 2. Stable appearance chronic atrophy and ischemic angiopathy deep white matter. 3. Note that the 1.4 cm meningioma along the left frontal convexity is not well seen on this unenhanced only scan. If further evaluation is indicated, gadolinium-enhanced MRI study is recommended. Electronically signed by Raoul Gonzalez 11-10-2024 8:15 PM Medications Administered Home Medications Medication Instructions Recorded Confirmed Last Taken amlodipine 5 mg tablet (Norvasc) 5 mg PO QAM #30 tabs 05/21/24 11/10/24 11/09/24 apixaban 2.5 mg tablet (Eliquis) 2.5 mg PO BID #60 tabs 05/21/24 11/10/24 11/09/24 levothyroxine 75 mcg tablet 75 mcg PO DAILYBB #30 tabs 05/21/24 11/10/24 11/09/24 (Synthroid) melatonin 10 mg capsule 10 mg PO HS #30 caps 05/21/24 11/10/24 11/09/24 metoprolol succinate 25 mg 25 mg PO QAM #30 tabs 05/21/24 11/10/24 11/09/24 tablet,extended release 24 hr calcitriol 0.25 mcg capsule 0.25 mcg PO 3XWK 07/16/24 11/10/24 11/07/24 pantoprazole 40 mg tablet,delayed 40 mg PO AMHS 07/16/24 11/10/24 11/09/24 release rosuvastatin 10 mg tablet 10 mg PO HS 07/16/24 11/10/24 11/09/24 trazodone 50 mg tablet 50 mg PO HS 07/16/24 11/10/24 11/09/24 acetaminophen 500 mg tablet 500 mg PO TID PRN Pain 08/21/24 11/10/24 Unknown clopidogrel 75 mg tablet 75 mg PO QAM 08/21/24 11/10/24 11/09/24 buspirone 15 mg tablet 15 mg PO BID 11/02/24 11/10/24 11/09/24 ferrous sulfate 325 mg (65 mg 325 mg PO DAILY 11/02/24 11/10/24 11/09/24 iron) tablet (FeroSul) Active Medications Generic Name Dose Route Start Last Admin Trade Name Freq PRN Reason Stop Dose Admin Amlodipine Besylate 5 mg 11/11/24 09:00 11/14/24 08:46 Amlodipine Besylate 5 Mg Tab PO 12/11/24 08:59 5 mg QAM YAN Administration Apixaban 2.5 mg 11/10/24 22:30 11/13/24 10:06 Apixaban 2.5 Mg Tab PO 12/10/24 22:29 2.5 mg BID YAN Administration Buspirone HCl 15 mg 11/10/24 22:30 11/14/24 08:46 Buspirone 15 Mg Tab PO 12/10/24 22:29 15 mg BID YAN Administration Clopidogrel Bisulfate 75 mg 11/11/24 09:00 11/14/24 08:47 Clopidogrel Bisulfate 75 Mg Tab PO 12/11/24 08:59 75 mg QAM YAN Administration Ferrous Sulfate 325 mg 11/11/24 09:00 11/14/24 08:46 Ferrous Sulfate 325 Mg Tab PO 12/11/24 08:59 325 mg DAILY YAN Administration Hydroxyzine HCl 10 mg 11/12/24 07:48 11/13/24 22:08 Hydroxyzine Hcl 10 Mg Tab PO 12/12/24 07:47 10 mg Q6H PRN Administration Anxiety/Agitation Levothyroxine Sodium 75 mcg 11/11/24 06:30 11/14/24 05:35 Levothyroxine Sodium 75 Mcg Tablet PO 12/11/24 06:29 75 mcg DAILYBB YAN Administration Melatonin 12 mg 11/11/24 02:14 11/13/24 00:34 Melatonin 3 Mg Tab PO 12/11/24 20:59 12 mg HS PRN Administration insomnia Metoprolol Succinate 12.5 mg 11/12/24 09:00 11/12/24 08:25 Metoprolol Succ 25mg Ext Rel Tab PO 12/12/24 08:59 Not Given QAM YAN Nystatin 1 appln 11/11/24 09:00 11/14/24 08:45 Nystatin Powder 15gm Btl EXT 12/11/24 08:59 1 appln BID YAN Administration Ondansetron HCl 4 mg 11/12/24 10:53 11/14/24 11:36 Ondansetron Inj 2 Mg/Ml 2 Ml Vial IV 12/12/24 10:52 4 mg Q6H PRN Administration Nausea And Vomiting Pantoprazole Sodium 40 mg 11/11/24 09:00 11/14/24 08:47 Pantoprazole 40 Mg Tab PO 12/11/24 08:59 40 mg AMHS YAN Administration Rosuvastatin Calcium 10 mg 11/11/24 21:00 11/13/24 20:22 Rosuvastatin Calcium 10 Mg Tab PO 12/11/24 20:59 10 mg HS YAN Administration Trazodone HCl 50 mg 11/10/24 22:25 11/13/24 21:49 Trazodone Hcl 50 Mg Tab PO 12/10/24 22:24 50 mg HS YAN Administration PG Care Time/CCT Total # of Minutes Spent Total Time Spent with Patient: Total time spent is greater than 50% in coordination of care (as documented) at patient's floor/unit and/or counseling patient: Coding Level of Care Code 06915 SUB INP/OBS CARE 3/50MIN Diagnoses Permanent atrial fibrillation I48.21 Tachy-chaim syndrome I49.5 ASCVD (arteriosclerotic cardiovascular disease) I25.10 Aortic stenosis I35.0 Diastolic congestive heart failure I50.30 Atrial fibrillation with slow ventricular response I48.91
--- NOTE | 2024-11-14 11:57 | XCELERA ---
[id number] [id number]
--- NOTE | 2024-11-14 14:36 | History & Physical Bridge Note ---
Date of Service November 14, 2024 History & Physical Bridge Note I have examined the patient, reviewed the History & Physical and in the interval since the performance of the History & Physical I have noted the following changes of clinical significance: pt with TBS recommended a pacemaker prior to hospital discharge-discussed the procedure and potential risks she expressed an understanding and consents signed.
--- NOTE | 2024-11-14 14:37 | Pre Anesthesia Assessment ---
Date of Service November 14, 2024 Pre Sedation Assessment Vital Signs Temp Pulse Pulse Resp BP BP Pulse Ox 11/14/24 14:00 73 18 141/85 H 96 11/14/24 11:09 36.4 C L 77 16 137/88 91 11/14/24 07:42 36.7 C 75 18 158/82 H 97 11/14/24 03:13 36.6 C 92 H 16 138/83 97 11/14/24 01:27 111 H 11/13/24 23:24 36.8 C 59 L 16 113/77 93 11/13/24 22:00 11/13/24 21:54 70 11/13/24 20:40 36.4 C L 70 16 133/86 96 11/13/24 20:16 11/13/24 16:20 36.8 C 67 18 123/80 96 11/13/24 16:10 75 Pulse Ox O2 Del Method O2 Del Method 11/14/24 14:00 Room Air 11/14/24 11:09 Room Air 11/14/24 07:42 Room Air 11/14/24 03:13 Room Air 11/14/24 01:27 11/13/24 23:24 Room Air 11/13/24 22:00 96 Room Air 11/13/24 21:54 11/13/24 20:40 Room Air 11/13/24 20:16 Room Air 11/13/24 16:20 Room Air 11/13/24 16:10 Cardiovascular RRR, no murmur, no edema + irregularly irregular Respiratory normal respiratory effort, lungs clear to auscultation Pre-Sedation Airway Assessment Smoking Status: Never smoker Hx Sleep Apnea: No Short, Thick Neck: No Thyromental Distance: > or= 3.5 Finger Breadths Oral Cavity: + Dentures Mallampati Class: III ASA: ASA3 NPO Status Date of Last Intake of Fluids: 11/13/24 Date of Last Intake of Solid Food: 11/13/24 Procedure Planning Contraindications for Sedation: none Current Medications Reviewed: Yes Notes The planned sedation has been discussed with the patient. Informed Consent was obtained. I have identified the patient, determined the appropriateness of sedation and have assessed the patient immediately prior to the procedure. All medicine(s) and interventions are by my order.
[2024-11-14] MEDS: VANCOMYCIN HCL 1000MG/20ML VIAL ONE (15:24)
[2024-11-14] MEDS: ceFAZolin 330 MG/ML 1 GM VIAL ONE (15:24)
[2024-11-14] MEDS: WATER, STERILE FOR INJ 10 ML VIAL ONE (15:24)
[2024-11-14] MEDS: LIDOCAINE 1% LOCAL 20 ML VIAL ONE (15:25)
--- NOTE | 2024-11-14 15:47 | Post Anesthesia Assessment ---
Date of Service November 14, 2024 Post Sedation Assessment Vital Signs Temp Pulse Pulse Resp BP BP Pulse Ox 11/14/24 14:00 73 18 141/85 H 96 11/14/24 11:09 36.4 C L 77 16 137/88 91 11/14/24 07:42 36.7 C 75 18 158/82 H 97 11/14/24 03:13 36.6 C 92 H 16 138/83 97 11/14/24 01:27 111 H 11/13/24 23:24 36.8 C 59 L 16 113/77 93 11/13/24 22:00 11/13/24 21:54 70 11/13/24 20:40 36.4 C L 70 16 133/86 96 11/13/24 20:16 11/13/24 16:20 36.8 C 67 18 123/80 96 11/13/24 16:10 75 Pulse Ox O2 Del Method O2 Del Method 11/14/24 14:00 Room Air 11/14/24 11:09 Room Air 11/14/24 07:42 Room Air 11/14/24 03:13 Room Air 11/14/24 01:27 11/13/24 23:24 Room Air 11/13/24 22:00 96 Room Air 11/13/24 21:54 11/13/24 20:40 Room Air 11/13/24 20:16 Room Air 11/13/24 16:20 Room Air 11/13/24 16:10 Recovery Score Activity: Moves 4 extremities Respiration: Deep Breath/Cough Circulation: +/-20% PreAnes Value Consciousness: Fully Awake Oxygen Saturation: > 92% On Room Air Discharge Sedation Level of Care: Fast Track Phase II Post Sedation Plan On clinical assessment, the patient appears to have tolerated the sedation without complications. Patient is recovering as anticipated. Patient will continue to be monitored by nursing and may be discharged when sedation discharge criteria are met per below protocol. Upon Completions of procedure up to 15 minutes continue every 5 minute vital signs and the P.A.R. score; then discharge to a Phase I or Fast Track to Phase II per the following guidelines: * Discharge Patient to appropriate Phase II area if PAR is 8 or greater or return to pre- procedure baseline. The post - procedure orders will be as directed. * If PAR score is less than 8 or not return to pre-procedure baseline then patient will follow Phase I monitoring till PAR is reached for Phase II. The Phase I may be done in procedure room or may call to secure a Phase I area. * If naloxone or flumazenil are used for reversal, hold in Phase I for continued monitoring from when last reversal dose was given for a minimum of 60 minutes or longer pending the nurse and/or physician discretion of patient condition before discharge to Phase II. Please call the Sedation Physician to re-evaluate and complete post-note for discharge to Phase II area. Do NOT discharge from procedure sedation or Phase 1 until post- sedation evaluation note is complete by procedure /sedation MD Sedation Discharge Instructions to be given to the patient at discharge to home.
[2024-11-14] MEDS: MIDAZOLAM HCL 1 MG/ML 2ML VIAL ONE (15:53)
[2024-11-14] MEDS: BUPIVACAINE 0.25% PF 30 ML VIAL ONE (15:53)
[2024-11-14] MEDS: MIDAZOLAM HCL 5 MG/ML 1 ML VIAL ONE (15:54)
--- NOTE | 2024-11-14 16:00 | Operative Report ---
Post Operative Report DATE OF PROCEDURE: 11/14/2024 PREOPERATIVE DIAGNOSES:TBS and permanent AF POSTOPERATIVE DIAGNOSIS: Same PROCEDURE: A single-chamber rate responsive permanent pacemaker along with a peripheral venogram under fluoroscopic guidance. SURGEON: Sheryl Waldrop DO ASSISTANTS: None. ANESTHESIA: Monitored conscious sedation administered under my supervision by Albin Eric. Start time 14:55, end time 15:47, a total of 3 mg of Versed and 75 mcg of fentanyl. INTRAVENOUS FLUIDS: 0 mL. CONTRAST: 12 mL. ANTIBIOTICS: 1 grams of Ancef. ADDITIONAL MEDICATIONS: None BLOOD LOSS: 50 mL. URINE OUTPUT: Not applicable. SPECIMENS: None. FINDINGS: See below. DRAINS: None. COMPLICATIONS: None. CONDITION: Stable. INDICATIONS: This is a 86-year-old female who has a past medical history Permanent AF on toprol and eliquis [id number] 3 (age, HTN), TBS. She has been having episodes of TBS on telemetry and was recommended at single chamber ppm prior to hospital discharge. CONSENT: Consent was obtained prior to the patient going into the electrophysiology lab. The patient was informed of the risks, benefits, and alternatives to the procedure. Risks include, but not limited to, sudden cardiac , cardiac arrhythmias, cerebrovascular accident, myocardial infarction, injury to his blood vessels, chamber of the heart and lung, bleeding and infection. The patient understood these risks and agreed to the procedure as planned. Informed consent was obtained. DESCRIPTION OF PROCEDURE: The patient was brought into electrophysiology lab in a fasting state. She was connected to continuous cardiac monitoring. A timeout was performed to ensure the patient's identity and procedure correctly. She was prepped and draped in the left infraclavicular space in normal surgical standard fashion. Monitored conscious sedation was given throughout the procedure for the patient's comfort level. [place] precautions were maintained throughout the procedure. Prophylactic antibiotics were given prior to incision. A 20 mL of 1% lidocaine and bupivacaine mixture were given in the left deltopectoral groove. An incision was made in the left deltopectoral groove. Blunt dissection was performed down to the pectoralis muscle. Then, using blunt dissection over the pectoralis muscle within the pectoral fascia, a pacemaker pocket was created. Then, a peripheral venogram was performed to identify the axillary vein. I was having difficulty getting axillary venous access and was concerned about possible PTX so I started pt on a non-rebreather mask. She never dropped any O2 sats. I then opted to do a cut down to the cephalic vein which was isolated using 0-silk ties. Then the cephalic vein was nicked with an 11 blade and the guidewire was advanced without any resistance. A 9-[place] sheath was inserted over the guidewire without any resistance. The guidewire and dilator were removed. Then, the CPS Crude Tester 3D large curved sheath was inserted through the 9-[place] sheath over a Glidewire into the right ventricle. The Glidewire and dilator were removed. Then, the left bundle lead was advanced through the sheath. I then moved the camera to CALVO 30, once I found an area where I had a nice W formed pace complex in my lead V1, I then moved the camera to IRIS 30. Then the helix was extended into the septum. Then the helix locking tool was placed. Then the lead was screwed further into the septum while pacing by giving slow clockwise turns. The paced complex changed to a nice R' in V1 and the pacing stim to peak QRS in V6 was good. I then gave contrast through the sheath to see how far the lead was into the septum and then I slit the CPS Crude Tester 3D large curved sheath under fluoroscopic guidance. The 9-[place] sheath around the left bundle lead was peeled away and the lead was fixated to pectoralis muscle using 0 silk suture. The pocket was flushed with copious amounts of vancomycin and saline wash and inspected for hemostasis. The leads were then attached to the pulse generator making sure the pins were in appropriate position, passed set screws, and set screws were all tightened. Pulse generator was then placed in the pocket, making sure the leads were lying flat beneath the device. The incision was closed in a 3-layer fashion using 2-0 Vicryl interrupted suture, followed by 3-0 Vicryl interrupted suture, followed by 4-0 Monocryl running stitch. Then a primaseal dressing was placed EQUIPMENT: 1. Pulse generator is a [employer] MRI Model Number [id number] SN: [id number] 2. Left bundle lead, Ensa ultipace [id number] SN: [id number] INTRAPROCEDURAL FINDINGS: 1.Left bundle lead, R waves 9.0 millivolts, impedance 801 ohms, threshold 0.6 volts at 0.5 milliseconds. FINAL MEASUREMENTS THROUGH THE DEVICE: 1. Left bundle lead, R waves 8.0 millivolts, impedance 780 ohms, threshold 0.5 volts at 0.4 milliseconds. FINAL PARAMETERS: VVIR 70/115, Left bundle lead amplitude 3.5 volts, pulse width 0.4 milliseconds, sensitivity 2 millivolts. IMPRESSION: Successful single chamber rate responsive permanent pacemaker under fluoroscopic guidance along with peripheral venogram all under fluoroscopic guidance secondary to TBS and permanent AF. PLAN: Monitor the patient post-procedure. A 12-lead ECG in a couple of hours, chest x-ray now to ensure no PTX. She is not to lift the left elbow or left shoulder for 1 month. She cannot lift more than 10 pounds with the left arm for 2 weeks. She is to keep the dressing on and dry until her wound check next week. Can restart eliquis tonight; restart toprol but at higher dose 25mg daily tomorrow. If CXR post procedure ok would repeat one again tomorrow morning.
--- NOTE | 2024-11-14 17:09 | XRay Report ---
Technique: A frontal view of the chest was obtained Comparison is made to the prior examination dated 11/10/2024 Findings: There is a small left apical pneumothorax, less than 5% in size. There is a suspected small right pneumothorax is well There are no definite pulmonary infiltrates. The heart size is at the upper limit of normal There are bilateral shoulder replacements. There is a new left chest wall pacemaker device. There is thoracic and lumbar scoliosis and degenerative disc disease. Sternal wires are present. There are unchanged right rib fractures Impression: Small bilateral pneumothorax ACT 112: Positive. There are findings on this exam that require communication between the performing entity and the patient following Patient Test Result Information Act ([place] ACT 112) guidelines. Electronically signed by Dhaval Obregon 11-14-2024 5:09 PM
[2024-11-14] MEDS: ACETAMINOPHEN 500 MG TAB PO PRN (18:21)
[2024-11-14] MEDS: CeleBREX 200 MG CAP PO ONE (18:41)
[2024-11-14] MEDS: MoRPHine SULFATE 2 MG/ML CARP IV STA (23:32)
--- NOTE | 2024-11-15 01:03 | XRay Report ---
Exam(s): XR CXR 1 VIEW EXAM: XR Chest, 1 View CLINICAL HISTORY: Reason for exam: sob. TECHNIQUE: Frontal view of the chest. COMPARISON: November 10, 2024. FINDINGS: Lungs: Unremarkable. No acute infiltration, atelectasis or mass. Pleural space: Moderate to large left pneumothorax. Heart: Unremarkable. No cardiomegaly. Mediastinum: Unremarkable. Normal mediastinal contour. Bones/joints: At previous sternotomy. Previous bilateral shoulder replacements. Tubes, lines and devices: Interval placement of an implanted cardiac pacer. IMPRESSION: Moderate to large left pneumothorax. Communications: Call Doctor Pneumothorax Electronically signed by: Toney Sheppard MD 11/15/24 01:02 AM
[2024-11-15] MEDS ORDERED: MIDAZOLAM HCL 1 MG/ML 2ML VIAL IV PRN (01:21)
--- NOTE | 2024-11-15 02:40 | Pulmonary Consultation ---
Date of Consultation November 15, 2024 Assessment & Plan (1) Pneumothorax, left: Post pacemaker insertion. Increased in size and associated with chest discomfort. Concern about possible progression into tension pneumothorax with tamponade. I discussed with the patient the findings, and the pros and cons of insertion of chest tube to drain the pneumothorax, and the potential consequences of not draining the pneumothorax. She verbalized understanding. (2) Cardiac pacemaker in situ: (3) Chest pain: Associated with worsening left pneumothorax. Chest pain type: unspecified Qualified Code(s): R07.9 - Chest pain, unspecified History of Present Illness Reason for Consultation: Symptomatic pneumothorax Attending Physician: Abelardo Fallon MD History of Present Illness The patient is a very pleasant 85-year-old female who presented to the ED due to confusion and missed medication dosing, with initial shortness of breath as reported by EMS. The EMS crew expressed concern regarding her safety at home, noting that she lived alone and had been forgetting to take her medications. She has a known history of mild dementia. Her past medical history was significant for chronic diastolic heart failure (EF 6065%, TTE 2024), valvular heart disease (mild MR/TR), CAD status post CABG, A- fib on Eliquis, ascending aorta dilatation, HTN, HLD, CVA, meningioma, mild dementia, hypothyroidism, anxiety/mood disorder, and past tobacco abuse. She had a prior hospitalization in August 2024 for decompensated heart failure and inability to care for herself, with a prolonged hospital course due to placement difficulties. 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 No reversible cause was identified. Management options were discussed, and permanent pacemaker implantation appeared indicated. The patient underwent insertion of permanent pacemaker today. However, the flight nurse, Dr. Waldrop, contacted me following the procedure reporting that she suspected that there was pneumothorax, and that she started the patient on Oxygen. A CXR did confirm a small left pneumothorax, and also a small right pneumothorax was reported by the radiologist, though there was on intervention on the right side. Dr. Waldrop reported that the patient was stable to go back to the floor, but wanted me to be aware of the possible need for a chest tube. Later I was contacted by the hospitalist and the ICU [facility] because the patient developed left sided chest pain, and repeat CXR showed worsening left pneumothorax. I came in and evaluated the patient. She was in no acute distress on Oxygen via non-rebreather mask. I reviewed the CXRs. I discussed with the patient the findings, and the pros and cons of insertion of chest tube to drain the pneumothorax, and the potential consequences of not d raining the pneumothorax. She verbalized understanding. Allergies Allergy/AdvReac Type Severity Reaction Status Date / Time nitroglycerin AdvReac Severe "PROJECTILE Verified 11/10/24 19:53 VOMITTING" ergotamine AdvReac Intermediate vomiting Verified 11/10/24 19:53 Home Medications Medication Instructions Recorded Confirmed Type amlodipine 5 mg tablet (Norvasc) 5 mg PO QAM #30 tabs 05/21/24 11/10/24 Rx apixaban 2.5 mg tablet (Eliquis) 2.5 mg PO BID #60 tabs 05/21/24 11/10/24 Rx levothyroxine 75 mcg tablet 75 mcg PO DAILYBB #30 tabs 05/21/24 11/10/24 Rx (Synthroid) melatonin 10 mg capsule 10 mg PO HS #30 caps 05/21/24 11/10/24 Rx metoprolol succinate 25 mg 25 mg PO QAM #30 tabs 05/21/24 11/10/24 Rx tablet,extended release 24 hr calcitriol 0.25 mcg capsule 0.25 mcg PO 3XWK 07/16/24 11/10/24 History pantoprazole 40 mg tablet,delayed 40 mg PO AMHS 07/16/24 11/10/24 History release rosuvastatin 10 mg tablet 10 mg PO HS 07/16/24 11/10/24 History trazodone 50 mg tablet 50 mg PO HS 07/16/24 11/10/24 History acetaminophen 500 mg tablet 500 mg PO TID PRN Pain 08/21/24 11/10/24 History clopidogrel 75 mg tablet 75 mg PO QAM 08/21/24 11/10/24 History buspirone 15 mg tablet 15 mg PO BID 11/02/24 11/10/24 History ferrous sulfate 325 mg (65 mg 325 mg PO DAILY 11/02/24 11/10/24 History iron) tablet (FeroSul) Patient History Medical History Moderate dementia with anxiety Depression Arthritis Ambulatory dysfunction Generalized anxiety disorder Arthritis of right shoulder region Syncope and collapse Urinary incontinence Primary osteoarthritis, right shoulder DJD of left shoulder Chronic osteoarthritis Greater trochanteric bursitis of right hip Acute on chronic heart failure with preserved ejection fraction (HFpEF) KIM (acute kidney injury) Chest pain, atypical Sinus pause Labile hypertension Paroxysmal A-fib Precordial chest pain Hypercalcemia Hyperparathyroidism Sepsis due to pneumonia Pneumonia Acute on chronic diastolic CHF (congestive heart failure) Hypomagnesemia Hypophosphatemia History of coronary artery disease Precordial chest pain SOB (shortness of breath) Weakness Elevated troponin Costochondritis Confusion Acute alteration in mental status Ascending aorta dilation SOB (shortness of breath) Hypertension Asymptomatic bradycardia Acute renal failure superimposed on stage 3 chronic kidney disease Anemia, chronic disease Intractable nausea Problems related to lack of adequate sleep Delirium due to another medical condition, acute, hyperactive Mild cognitive impairment Iron deficiency anemia Chest pain Hiatal hernia with GERD and esophagitis Hypertension, uncontrolled Shortness of breath Acute UTI Chronic diastolic CHF (congestive heart failure) Breathlessness Atypical chest pain Acute on chronic heart failure with preserved ejection fraction BROUSSARD (dyspnea on exertion) Sleep-wake cycle disorder Mobitz type 1 second degree AV block (10/2023) Somatic dysfunction of sacroiliac joint History of blood transfusion 2012 2/2 GASTRIC ULCER History of gastric ulcer 2012 Spinal stenosis Gastric ulcer Atrial fibrillation with rapid ventricular response (11/2022) Fall Moderate mitral regurgitation Transient ischemic attack (TIA) ~2013>REASON FOR PLAVIX Osteoarthritis Chronic back pain Dyslipidemia Hypertension Surgical History 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 History of cardiac cath NO STENTS History of coronary artery bypass graft 1998 (1 VESSEL) S/P epidural steroid injection History of esophagogastroduodenoscopy (EGD) S/p reverse total shoulder arthroplasty RT/LEFT History of abdominoplasty PANNICULECTOMY History of colonoscopy History of arthroplasty of right hip History of arthroplasty of left hip History of hysterectomy with oophorectomy History of arthroplasty of left shoulder History of tonsillectomy and adenoidectomy H/O bilateral salpingo-oophorectomy with hyter Family History Father , age 74 Allergic reaction Mother , 80s CHF (congestive heart failure) Other No family history of adverse response to anesthesia Social History Smoking Status: Never smoker Second Hand Exposure: No; Do You Dip or Chew Tobacco: No; Tobacco Cessation Education Requested by Patient: No Hx Alcohol Use: No Hx Substance Use: No Preferred Language: Maltese Communication Ability: Effective Visual Impairment: No Limitations Emergency Medical Technician/Driver Required: No Beliefs That Will Affect Care: None marital status: Single Current Living Situation: Alone Current Living Situation Comment: independant apartment at [facility] How many Children do You have: 0 Other Information That Helps Us Care for You: No Feels Safe at Home: Yes Safety Concerns: Feels Safe At This Time Assistive Devices: Walker Review of Systems Review of Systems: All systems reviewed & are unremarkable except as noted in HPI & below Physical Exam Physical Exam: Vitals and labs reviewed. General: In no acute distress, using Oxygenvia non-rebreather mask. Skin: Warm and dry to touch. Occasional hyperemic areas. Left upper chest covered with patch at site of insertion of pacemaker. Eyes: Anicteric.Noconjunctival hyperemia or exudates.No periorbital edema. Neck: No palpable masses or adenopathy. Respiratory: Diffusely decreased breath sounds, especially over left hemithorax with increased tympanicity, no wheezing or crackles. No use of accessory muscles and no prolonged exhalation. Cardiac: Distant sounds, regular rhythm, no murmurs, no gallops, no rubs; could not appreciate JV pulse elevation. GI: Soft, nontender. Extremities No clubbing,no cyanosis,no edema. Left upper extremity in sling (post pacemaker insertion). Neuro: No gross motor deficits. Seems appropriate. Results & Data Results & Data Vital Signs (Past 12 Hours) Vital Signs Temp Pulse Pulse Resp BP Pulse Ox Pulse Ox 11/15/24 02:30 72 16 148/94 H 98 11/15/24 02:10 80 20 176/86 H 99 11/15/24 02:00 73 20 163/93 H 100 11/15/24 01:50 71 20 177/96 H 100 11/15/24 01:41 73 20 158/97 H 98 11/15/24 01:30 71 18 162/101 H 100 11/15/24 01:14 71 18 171/95 H 99 11/14/24 22:55 72 28 H 158/84 H 98 11/14/24 22:39 70 135/80 96 11/14/24 22:00 98 11/14/24 21:54 72 137/85 93 11/14/24 21:24 71 113/75 11/14/24 20:54 76 133/80 93 11/14/24 20:45 11/14/24 20:39 77 115/74 11/14/24 20:24 80 141/75 H 95 11/14/24 20:00 36.6 C 86 24 114/77 99 11/14/24 18:39 36.7 C 97 H 18 179/84 H 100 11/14/24 17:55 36.6 C 75 18 155/85 H 96 O2 Del Method O2 Del Method O2 Flow Rate O2 Flow Rate 11/15/24 02:30 Non-rebreather 15 11/15/24 02:10 Non-rebreather 15 11/15/24 02:00 Non-rebreather 15 11/15/24 01:50 Non-rebreather 15 11/15/24 01:41 Non-rebreather 15 11/15/24 01:30 Non-rebreather 15 11/15/24 01:14 Non-rebreather 15 11/14/24 22:55 Non-rebreather 15 11/14/24 22:39 Non-rebreather 15 11/14/24 22:00 Non-rebreather 15 11/14/24 21:54 Non-rebreather 15 11/14/24 21:24 11/14/24 20:54 Non-rebreather 15 11/14/24 20:45 Non-rebreather 15 11/14/24 20:39 11/14/24 20:24 Non-rebreather 15 11/14/24 20:00 Non-rebreather 15 11/14/24 18:39 Aerosol Mask 15 11/14/24 17:55 Aerosol Mask, Ambu-Bag 15 Laboratory Results 11/14/24 23:33 Troponin I High Sens 612.2 H* Diagnostic Findings Chest X-Ray 11/14/24 15:47 Technique: A frontal view of the chest was obtained Comparison is made to the prior examination dated 11/10/2024 Findings: There is a small left apical pneumothorax, less than 5% in size. There is a suspected small right pneumothorax is well There are no definite pulmonary infiltrates. The heart size is at the upper limit of normal There are bilateral shoulder replacements. There is a new left chest wall pacemaker device. There is thoracic and lumbar scoliosis and degenerative disc disease. Sternal wires are present. There are unchanged right rib fractures Impression: Small bilateral pneumothorax ACT 112: Positive. There are findings on this exam that require communication between the performing entity and the patient following Patient Test Result Information Act ([place] ACT 112) guidelines. Electronically signed by Dhaval Obregon 11-14-2024 5:09 PM Chest X-Ray 11/14/24 23:10 CR Exam(s): XR CXR 1 VIEW EXAM: XR Chest, 1 View CLINICAL HISTORY: Reason for exam: sob. TECHNIQUE: Frontal view of the chest. COMPARISON: November 10, 2024. FINDINGS: Lungs: Unremarkable. No acute infiltration, atelectasis or mass. Pleural space: Moderate to large left pneumothorax. Heart: Unremarkable. No cardiomegaly. Mediastinum: Unremarkable. Normal mediastinal contour. Bones/joints: At previous sternotomy. Previous bilateral shoulder replacements. Tubes, lines and devices: Interval placement of an implanted cardiac pacer. IMPRESSION: Moderate to large left pneumothorax. Communications: Call Doctor Pneumothorax Electronically signed by: Toney Sheppard MD 11/15/24 01:02 AM Medications Administered Home Medications Medication Instructions Recorded Confirmed Last Taken amlodipine 5 mg tablet (Norvasc) 5 mg PO QAM #30 tabs 05/21/24 11/10/24 11/09/24 apixaban 2.5 mg tablet (Eliquis) 2.5 mg PO BID #60 tabs 05/21/24 11/10/24 11/09/24 levothyroxine 75 mcg tablet 75 mcg PO DAILYBB #30 tabs 05/21/24 11/10/24 11/09/24 (Synthroid) melatonin 10 mg capsule 10 mg PO HS #30 caps 05/21/24 11/10/24 11/09/24 metoprolol succinate 25 mg 25 mg PO QAM #30 tabs 05/21/24 11/10/24 11/09/24 tablet,extended release 24 hr calcitriol 0.25 mcg capsule 0.25 mcg PO 3XWK 07/16/24 11/10/24 11/07/24 pantoprazole 40 mg tablet,delayed 40 mg PO AMHS 07/16/24 11/10/24 11/09/24 release rosuvastatin 10 mg tablet 10 mg PO HS 07/16/24 11/10/24 11/09/24 trazodone 50 mg tablet 50 mg PO HS 07/16/24 11/10/24 11/09/24 acetaminophen 500 mg tablet 500 mg PO TID PRN Pain 08/21/24 11/10/24 Unknown clopidogrel 75 mg tablet 75 mg PO QAM 08/21/24 11/10/24 11/09/24 buspirone 15 mg tablet 15 mg PO BID 11/02/24 11/10/24 11/09/24 ferrous sulfate 325 mg (65 mg 325 mg PO DAILY 11/02/24 11/10/24 11/09/24 iron) tablet (FeroSul) Active Medications Generic Name Dose Route Start Last Admin Trade Name Carlq PRN Reason Stop Dose Admin Acetaminophen 1,000 mg 11/14/24 17:34 11/15/24 02:23 Acetaminophen 500 Mg Tab PO 12/14/24 17:33 1,000 mg Q8H PRN Administration Mild-Mod Pain (Scale 1-6) Amlodipine Besylate 5 mg 11/11/24 09:00 11/14/24 08:46 Amlodipine Besylate 5 Mg Tab PO 12/11/24 08:59 5 mg QAM YAN Administration Apixaban 2.5 mg 11/10/24 22:30 11/13/24 10:06 Apixaban 2.5 Mg Tab PO 12/10/24 22:29 2.5 mg BID YAN Administration Buspirone HCl 15 mg 11/10/24 22:30 11/14/24 19:49 Buspirone 15 Mg Tab PO 12/10/24 22:29 15 mg BID YAN Administration Clopidogrel Bisulfate 75 mg 11/11/24 09:00 11/14/24 08:47 Clopidogrel Bisulfate 75 Mg Tab PO 12/11/24 08:59 75 mg QAM YAN Administration Ferrous Sulfate 325 mg 11/11/24 09:00 11/14/24 08:46 Ferrous Sulfate 325 Mg Tab PO 12/11/24 08:59 325 mg DAILY YAN Administration Hydroxyzine HCl 10 mg 11/12/24 07:48 11/14/24 19:50 Hydroxyzine Hcl 10 Mg Tab PO 12/12/24 07:47 10 mg Q6H PRN Administration Anxiety/Agitation Levothyroxine Sodium 75 mcg 11/11/24 06:30 11/14/24 05:35 Levothyroxine Sodium 75 Mcg Tablet PO 12/11/24 06:29 75 mcg DAILYBB YAN Administration Melatonin 12 mg 11/11/24 02:14 11/14/24 19:48 Melatonin 3 Mg Tab PO 12/11/24 20:59 12 mg HS PRN Administration insomnia Nystatin 1 appln 11/11/24 09:00 11/14/24 23:33 Nystatin Powder 15gm Btl EXT 12/11/24 08:59 1 appln BID YAN Administration Ondansetron HCl 4 mg 11/12/24 10:53 11/14/24 11:36 Ondansetron Inj 2 Mg/Ml 2 Ml Vial IV 12/12/24 10:52 4 mg Q6H PRN Administration Nausea And Vomiting Pantoprazole Sodium 40 mg 11/11/24 09:00 11/14/24 19:49 Pantoprazole 40 Mg Tab PO 12/11/24 08:59 40 mg AMHS YAN Administration Rosuvastatin Calcium 10 mg 11/11/24 21:00 11/14/24 19:49 Rosuvastatin Calcium 10 Mg Tab PO 12/11/24 20:59 10 mg HS YAN Administration Trazodone HCl 50 mg 11/10/24 22:25 11/14/24 19:49 Trazodone Hcl 50 Mg Tab PO 12/10/24 22:24 50 mg HS YAN Administration PG Care Time/CCT Total # of Minutes Spent Total Time Spent with Patient: Total time spent is greater than 50% in coordination of care (as documented) at patient's floor/unit and/or counseling patient: Critical Care Time: Yes Total Critical Care Time: 45 Total Critical Care Time was: 45 minutes. This is a life/limb threatening event. This includes time spent evaluating patient, direct bedside care, chart review, placing orders, interpretation of diagnostic studies, discussion with consultants, patient, and/or family members regarding treatment decisions, as well as other required patient management activities. This time is exclusive of all separately-billable procedures, and teaching time and separate from and in addition to any other critical care service time. Coding Level of Care Code 45335 CRITICAL CARE 1ST 30-74M Diagnoses Pneumothorax, left J93.9 Cardiac pacemaker in situ Z95.0 Chest pain, unspecified type R07.9 Chest pain type: unspecified Additional Codes Critical Care Time - Critical Care Time: Yes ([id number]) Time Spent (min) 45 Comment Review chart/ imaging studies, history/ physical, update patient, family, nurse, provider.
[2024-11-15] MEDS: LIDOCAINE 5% 1 PATCH TD STA (02:49)
--- NOTE | 2024-11-15 03:05 | Procedure Note ---
Procedure Note Date of Service November 15, 2024 Procedure: Insertion of thoracostomy tube into left pleural space Counter Help: Wicho Vasquez MD. Indication: Symptomatic pneumothorax Consent: Signed by two physicians secondary to patient's dementia. Patient verbalized agreement. Anesthesia: 1% lidocaine without epinephrine local. Procedure: Time-out performed. Appropriate imaging studies were reviewed prior to the procedure. Patient was placed in a supine position and limited thoracic ultrasound was performed of the left hemithorax. Lack of lung-sliding confirmed by ultrasound. The skin over the second intercostal space mid-clavicular line was prepped and draped in normal sterile fashion. Lidocaine was used for local analgesia. Air was aspirated via the finder-anesthetic needle. Introduced needle was inserted, and air-bubbling confirmed. Guide-wire inserted via Seldinger technique. Small sanjuana made in the skin at the insertion site. Dilator used to dilate skin subcutaneous tissues. Following adequate dilation a chest catheter was introduced over the guide-wire. The guide-wire and inner-catheter were removed intact. The catheter was sutured in place using silk suture. Complications: None Blood loss: minimal. CXR confirmed chest catheter in adequate position with significant improvement in pneumothorax. [facility] [place] Procedure Codes (Charges) Indication for Procedure Indication for procedure: Symptomatic pneumothorax Pulmonary/Thoracic Procedure 1: Pulmonary and Thoracic: 04092 Tube thoracostomy Coding CPT Codes Pulmonary/Thoracic - Pulmonary and Thoracic: 59832 Tube thoracostomy ([id number]) Additional Codes Date of Service (PG.SURGERY)
[2024-11-15] MEDS: HYDROmorphone INJ 0.5 MG/0.5 ML SYR IV PRN (03:50)
--- NOTE | 2024-11-15 04:04 | XRay Report ---
EXAM: XR chest 1V portable CLINICAL HISTORY: S/p chest tube placement - eval as well as pneumot TECHNIQUE: An X-ray image of the chest was obtained in the AP portable projection. COMPARISON: 11/14/2024. FINDINGS: Pulmonary Parenchyma: A left-sided chest tube is present, with its tip at the lateral aspect of the left upper lobe. This is a new finding. There is a suspected residual minimal left apical pneumothorax, less than 10%. Please correlate clinically. Regressed. Left lower zone atelectasis. New. There is no evidence of consolidation, collapse, or focal opacities. No pulmonary nodules are identified. There is no evidence of pleural effusion or pleural thickening. Heart and Mediastinum: There is a mildly increased cardiothoracic ratio, stable. There is no mediastinal widening or masses. No hilar or mediastinal lymphadenopathy is seen. A single-lead pacemaker is in place, stable. Bony Thorax: Sternotomy wire sutures are noted. Possible right rib fractures are present, stable. Please correlate clinically. The bony thorax appears intact, without fractures or deformities. Soft Tissues: Bilateral shoulder prostheses are noted as stable. The soft tissues overlying the chest wall are unremarkable. IMPRESSION: 1. A left-sided chest tube is present, with its tip at the lateral aspect of the left upper lobe. This is a new finding. 2. Suspected residual minimal left apical pneumothorax, less than 10%. Please correlate clinically. Regressed. No current definite sizable right-sided pneumothorax. 3. Left lower zone atelectasis. New. 4. Stable rest of the study. Electronically signed by Bhavesh Arzate 11-15-2024 04:04 AM
--- NOTE | 2024-11-15 07:52 | Communication Note ---
Date of Service: November 15, 2024 Last patinet Complained of chest pain radiating to left arm. Vitals were ok. She was on NRB mask seems since evening and seemed comfortable and was saturating fine. ekg showed paced rhythm. ordered trop and cxr. gave a dose of morphine 2mg which seemed helped with the pain. cxr showed larger left pneumothorax and trop came back at 600's. Notified Critical care and was s/p emergent chest tube placement. Tried to call family but not able to reach.Notified Am providers.
[2024-11-15] MEDS: METOPROLOL SUCC 25MG EXT REL TAB PO SCH (08:05)
--- NOTE | 2024-11-15 08:06 | XRay Report ---
EXAM: XR chest 1V portable CLINICAL HISTORY: Eval pneumothorax. TECHNIQUE: An X-ray image of the chest was obtained in the AP projection. COMPARISON: 11/15/2024 01:17:00 CHARGE OUT CLERK. FINDINGS: Pulmonary Parenchyma: A left-sided chest tube is present, with its tip at the lateral aspect of the left upper lobe; this is unchanged. A suspected less than 10% apical left pneumothorax is still noted. There is left lower zone atelectasis with mild interval progression. There is interval demonstration of a focal opacity in the right mid zone. There is no evidence of pleural effusion or pleural thickening. Heart and Mediastinum: There is a mildly increased cardiothoracic ratio, which is stable. There is no mediastinal widening or mass. No hilar or mediastinal lymphadenopathy is seen. A single-lead pacemaker is in place and stable. Bony Thorax: Sternotomy wire sutures are noted. Possible right rib fractures are present and stable. Please correlate clinically. The bony thorax appears intact, without fractures or deformities. Soft Tissues: Bilateral shoulder prostheses are noted and are stable. The soft tissues overlying the chest wall are unremarkable. IMPRESSION: 1. A left-sided chest tube is present, with its tip at the lateral aspect of the left upper lobe; this is unchanged. 2. A suspected less than 10% apical left pneumothorax is still noted. 3. There is left lower zone atelectasis with mild interval progression. 4. There is interval demonstration of a focal opacity in the right mid zone. Electronically signed by Bhavesh Arzate 11-15-2024 08:06 AM
[2024-11-15 08:44] LABS: Hematocrit (blood only) 40.5 % (37.0-47.0); Hemoglobin 12.9 g/dl (12.0-16.0); Immature Granulocytes # (auto) 0.02 K/uL (0.01-0.20); Immature Granulocytes % (auto) 0.3 %; Mean Corpuscular Hemoglobin 29.7 pg (25.0-34.0); Mean Corpuscular Volume 93.3 fL (80.0-100.0); Platelet Count 154 K/uL (130-400); RDW Standard Deviation 46.0 fL (36.4-46.3); Red Blood Count 4.34 M/uL (4.20-5.40); White Blood Count 7.14 K/ul (4.8-10.8)
[2024-11-15 08:50] LABS: Anion Gap 6.0 (3-11); Blood Urea Nitrogen 34.0 mg/dl (6-23); Calcium 9.7 mg/dl (8.6-10.3); Carbon Dioxide 24.0 mmol/L (21-32); Chloride 108.0 mmol/L (98-107); Creatinine Clr Calc Pharmacy 19.3 ml/min; Glucose 97.0 mg/dl (70-99(Fasting)); Magnesium 1.9 mg/dl (1.7-2.4); Potassium 4.1 mmol/L (3.5-5.1); Sodium 138.0 mmol/L (136-145)
--- NOTE | 2024-11-15 12:52 | Hospitalist Progress Note ---
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 with an episode of 4-second pause yesterd ay Cardiology has been consulted Tried to call the brother to get them approval for pacemaker if she needs it but no reply Patient seems to be capable of giving the consent for the pacemaker as she un derstands the procedure and knows without that her heart rate can go down and can cause serious problems Tried to talk to her brother but again no response since last evening even after trial of multiple times Denies any cardiac symptoms and the EKG showing paced rhythm at 70/min Left pneumothorax following pacemaker insertion Required left-sided chest tube placement earlier this morning Appreciate pulmonary input and recommendation She has been feeling much better this morning and the pneumothorax seems to have improved a lot Management of chest tube as per pulmonary Shortness of breath Possibly from uncontrolled HTN, CXR w/ no congestion. Complicated by anxiety Missed medications secondary to patient's cognitive impairment/dementia Recurrent issue for patient on review of records c/w home meds, monitor. Has had an episode of shortness of breath this morning with anxiety and chest tightness Remains hemodynamically stable and was afebrile, saturating normally on room air Condition settled down with reassurance and keeping 10 mg of hydroxyzine Will monitor while in the hospital Remains free from any shortness of breath or anxiety No more shortness of breath and no anxiety She has been requiring 3 L to maintain saturation following the incidence of pneumothorax and chest tube placement Intertrigo Likely fungal, worsening rash secondary to unable to apply topical medication provided by ED from last week's visit, c/w topical antifungal underneath breast tissues Showing improvement of the rash Dementia Has Mild Dementia Complicated by Anxiety/Mood disorder Does not have any acute confusion Does not have any acute confusion Other chronic medical conditions: Continue with/resume home meds as when able. H/O chronic diastolic heart failure (EF 60 to 65%, TTE 2024), euvolemic to dry Valvular heart disease (mild MR/TR) H/O CAD status post CABG/PVD/CVA A-fib on Eliquis H spam call yperlipidemia on statin rx Hypothyroidism, euthyroid as of today's TSH Hypercalcemia, possible primary hyperparathyroidism, elevated PTH on review of outpatient blood work, f/u endocrine as OP. Ca normalized. Anxiety/mood disorder, at baseline Past tobacco abuse PT OT eval Social service re: contact office of aging about patient readmission due to inability to care for self DVT prophylaxis. Deana-Deana remains on hold due to recent surgery,pacemaker insertion and also chest tube placement Full code Patient's brother Mr. Matt Boles, contact #[phone]. Text document was generated using [employer] voice recognition software. It may contain grammatical or spelling errors. Kindly contact undersigned for clarification of any documentation item in question. Admission and Anticipated Discharge Date Admission Date: November 13, 2024 Subjective Patient was seen and examined in medical telemetry unit She has dementia and anxiety disorder noted to be very anxious this morning, with chest pressure shortness of breath and nausea Denies any abdominal pain, nausea but no vomiting, no fever and no chills and has been saturating normally on room air Reassured and she was given 10 mg of hydroxyzine 11/13/2024 The patient was seen and examined in medical telemetry unit She has been feeling her best today Noted to have another episode of sinus pause of 4 seconds Denies any significant symptoms 11/14/2024 The patient was seen and examined in medical telemetry unit She was very anxious to have the procedure but later on after explaining she was happy about it Tried to call her brother but again no response since last evening She seems to be understanding about the procedure and telling that she wants to have the procedure done to avoid any problem with her heart in future She has been otherwise stable without any symptoms this morning 11/15/2024 The patient was seen and examined in telemetry unit She is status post PPM placement yesterday and noted to have a small pneumothorax on the left side following the procedure Pneumothorax got worse overnight and required chest tube placement early in the morning today She has been feeling much better today has minimal pain in the chest tube insertion site but denies any other significant symptoms Review of Systems Review of Systems: All systems reviewed and are unremarkable except as noted below Physical Exam Physical Exam: Sitting on a chair without any acute distress Constitutional: well developed, well nourished and + ill appearing Eyes: PERRL, conjunctivae normal, anicteric sclerae ENMT: external ear and nose normal, oropharynx normal Neck: trachea midline, no thyromegaly Respiratory: no respiratory distress Auscultation: + diminished lung sounds (Mainly on the left side) Cardiovascular: Rate/Rhythm: regular rate and regular rhythm; not tachycardic Heart Sounds: normal S1, normal S2 and + murmur Extremities: no edema Gastrointestinal (Abdomen): Inspection/Auscultation: normal bowel sounds; abdomen not distended Percussion/Palpation: abdomen soft; abdomen nontender Musculoskeletal: No acute arthritis involving any of the joint Neurologic: normal touch/pain/proprioception and moves all extremities; no focal motor deficits and not confused Lymphatic: no cervical or axillary lymphadenopathy Results & Data Results & Data Vital Signs (Past 12 Hours) Vital Signs Temp Pulse Pulse Resp BP Pulse Ox O2 Del Method 11/15/24 11:42 36.3 C L 70 18 109/68 99 Nasal Cannula 11/15/24 10:05 Nasal Cannula 11/15/24 08:01 36.3 C L 73 18 149/82 H 100 Non-rebreather 11/15/24 03:18 36.4 C L 70 32 H 147/86 H 100 Non-rebreather 11/15/24 02:30 72 16 148/94 H 98 Non-rebreather 11/15/24 02:10 80 20 176/86 H 99 Non-rebreather 11/15/24 02:00 73 20 163/93 H 100 Non-rebreather 11/15/24 01:50 71 20 177/96 H 100 Non-rebreather 11/15/24 01:41 73 20 158/97 H 98 Non-rebreather 11/15/24 01:30 71 18 162/101 H 100 Non-rebreather 11/15/24 01:14 71 18 171/95 H 99 Non-rebreather O2 Flow Rate 11/15/24 11:42 3 11/15/24 10:05 3 11/15/24 08:01 15 11/15/24 03:18 15 11/15/24 02:30 15 11/15/24 02:10 15 11/15/24 02:00 15 11/15/24 01:50 15 11/15/24 01:41 15 11/15/24 01:30 15 11/15/24 01:14 15 Laboratory Results Short CBC 11/15/24 Range/Units 05:41 WBC 7.14 (4.8-10.8) K/ul Hgb 12.9 (12.0-16.0) g/dl Hct 40.5 (37.0-47.0) % Plt Count 154 (130-400) K/uL BMP 11/15/24 05:41 Sodium 138 Potassium 4.1 Chloride 108 H Carbon Dioxide 24 BUN 34 H Creatinine 1.67 H Glucose 97 Calcium 9.7 Medications Administered Current Inpatient Medications Acetaminophen (Acetaminophen 500 Mg Tab) 1,000 mg PO Q8H PRN PRN Reason: Mild-Mod Pain (Scale 1-6) Stop: 12/14/24 17:33 Last Admin: 11/15/24 02:23 Dose: 1,000 mg Amlodipine Besylate (A[facility]odipine Besylate 5 Mg Tab) [facility] [place] Stop: 12/11/24 08:59 Last Admin: 11/15/24 08:03 Dose: 5 mg Apixaban (Apixaban 2.5 Mg Tab) 2.5 mg PO BID [facility] Stop: 12/10/24 22:29 Last Admin: 11/13/24 10:06 Dose: 2.5 mg Artificial Tears (Artificial Tears) 1 drops OPB QID PRN PRN Reason: Dryness Stop: 12/11/24 13:42 Buspirone HCl (Buspirone 15 Mg Tab) 15 mg PO BID [facility] Stop: 12/10/24 22:29 Last Admin: 11/15/24 08:03 Dose: 15 mg Clopidogrel Bisulfate (Clopidogrel Bisulfate 75 Mg Tab) 75 mg PO QAM [facility] Stop: 12/11/24 08:59 Last Admin: 11/15/24 08:03 Dose: 75 mg Ferrous Sulfate (Ferrous Sulfate 325 Mg Tab) 325 mg PO DAILY [facility] Stop: 12/11/24 08:59 Last Admin: 11/15/24 08:02 Dose: 325 mg Hydromorphone HCl (Hydromorphone Inj 0.5 Mg/0.5 Ml Syr) 0.25 mg IV Q4H PRN PRN Reason: Moderate Pain (Scale 4, 5, 6) Stop: 11/29/24 03:25 Hydromorphone HCl (Hydromorphone Inj 0.5 Mg/0.5 Ml Syr) 0.5 mg IV Q4H PRN PRN Reason: Severe Pain (Scale 7, 8, 9,10) Stop: 11/29/24 03:25 Last Admin: 11/15/24 07:57 Dose: 0.5 mg Hydroxyzine HCl (Hydroxyzine Hcl 10 Mg Tab) 10 mg PO Q6H PRN PRN Reason: Anxiety/Agitation Stop: 12/12/24 07:47 Last Admin: 11/15/24 08:01 Dose: 10 mg Levothyroxine Sodium (Levothyroxine Sodium 75 Mcg Tablet) 75 mcg PO DAILYBB [facility] Stop: 12/11/24 06:29 Last Admin: 11/15/24 06:15 Dose: Not Given Melatonin (Melatonin 3 Mg Tab) 12 mg PO HS PRN PRN Reason: insomnia Stop: 12/11/24 20:59 Last Admin: 11/14/24 19:48 Dose: 12 mg Metoprolol Succinate (Metoprolol Succ 25mg Ext Rel Tab) 25 mg PO QAM [facility] Stop: 12/15/24 08:59 Last Admin: 11/15/24 08:05 Dose: 25 mg Miscellaneous (Remove Lidoderm Patch) 1 each N/A ONE ONE Stop: 11/15/24 14:01 Nystatin (Nystatin Powder 15gm Btl) 1 appln EXT BID [facility] Stop: 12/11/24 08:59 Last Admin: 11/14/24 23:33 Dose: 1 appln Ondansetron HCl (Ondansetron Inj 2 Mg/Ml 2 Ml Vial) 4 mg IV Q6H PRN PRN Reason: Nausea And Vomiting Stop: 12/12/24 10:52 Last Admin: 11/15/24 03:50 Dose: 4 mg Pantoprazole Sodium (Pantoprazole 40 Mg Tab) 40 mg PO AMHS [facility] Stop: 12/11/24 08:59 Last Admin: 11/15/24 08:03 Dose: 40 mg Rosuvastatin Calcium (Rosuvastatin Calcium 10 Mg Tab) 10 mg PO HS [facility] Stop: 12/11/24 20:59 Last Admin: 11/14/24 19:49 Dose: 10 mg Trazodone HCl (Trazodone Hcl 50 Mg Tab) 50 mg PO HS [facility] Stop: 12/10/24 22:24 Last Admin: 11/14/24 19:49 Dose: 50 mg
[2024-11-15] MEDS: REMOVE LIDODERM PATCH ONE (13:47)
--- NOTE | 2024-11-15 19:17 | Cardiology Progress Note ---
Date of Service November 15, 2024 Assessment & Plan (1) Permanent atrial fibrillation: (2) Tachy-chaim syndrome: (3) ASCVD (arteriosclerotic cardiovascular disease): (4) Aortic stenosis: (5) Diastolic congestive heart failure: (6) Atrial fibrillation with slow ventricular response: Plan 85-year-old female admitted on November 10, 2024 for evaluation of shortness of breath as well as a rash under the breasts. Telemetry monitoring with evidence of Tachy-Chaim Syndrome, likely permanent atrial fibrillation with periods of rapid ventricular response (up to 150 bpm) as well as episodes of bradycardia and pauses up to 4 seconds in duration despite being off all AV chanel blockers for at least the past 36 hours. No reversible cause identified. TSH within normal range. Options of management discussed. Permanent pacemaker implantation appears indicated though with significant logistical issues with cognitive deficits and previously noted inability to care for herself at home. Permanent atrial fibrillation with tachy-chaim syndrome S/P PPM implant Iatrogenic Pneumothorax requiring CT CAD s/p 1V CABG HFpEF Aortic stenosis HTN - uncontrolled -> better Eliquis F/U with Pulmonary -> CT management correct and f/u electrolytes f/u renal function adjust anti-HTN meds keeping systolic BP between 100-140 mmHg avoid hypovolemia keep patient euvolemic DVT prophylaxis Admission and Anticipated Discharge Date Admission Date: November 13, 2024 Subjective Patient on exam is sitting in chair in NAD; no c/o sob, palpitations, dizziness, LOC Patient is s/p PPM placement yesterday with small pneumothorax which worsened overnight requiring chest tube placement Patient is feeling better; breathing is stable; c/o mild pain at the chest tube insertion site Review of Systems Review of Systems: none significant other than hpi Physical Exam Physical Exam: General: awake, alert, NAD. HENT: Normocephalic. Atraumatic. Eyes: Conjunctiva pink, anicteric sclerae. Neck: soft, NT, No JVD. Heart: Irregularly irregular. Grade II/ systolic ejection murmur. Chest: no rales, no wheezing +CT Abdomen: +BS. Soft. Nontender. No masses or organomegaly. Extremities: No cyanosis, or edema. Limited neurological examination is without focal deficits. Results & Data Vital Signs (Past 12 Hours) Vital Signs Temp Pulse Pulse Resp BP Pulse Ox O2 Del Method 11/15/24 16:02 36.4 C L 71 18 147/81 H 99 Nasal Cannula 11/15/24 15:37 70 11/15/24 11:42 36.3 C L 70 18 109/68 99 Nasal Cannula 11/15/24 10:05 Nasal Cannula 11/15/24 08:01 36.3 C L 73 18 149/82 H 100 Non-rebreather O2 Flow Rate 11/15/24 16:02 2 11/15/24 15:37 11/15/24 11:42 3 11/15/24 10:05 3 11/15/24 08:01 15 Laboratory Results Laboratory Results - last 48 hr 11/14/24 11/15/24 11/15/24 23:33 05:37 05:41 WBC 7.14 RBC 4.34 Hgb 12.9 Hct 40.5 MCV 93.3 MCH 29.7 MCHC 31.9 L RDW Std Deviation 46.0 RDW Coeff of Howie 13.4 Plt Count 154 MPV 10.4 Immature Gran % (Auto) 0.3 Neut % (Auto) 62.9 Lymph % (Auto) 22.1 Woodruff % (Auto) 11.3 Eos % (Auto) 2.7 Baso % (Auto) 0.7 Neut # (Auto) 4.49 Lymph # (Auto) 1.58 Woodruff # (Auto) 0.81 H Eos # (Auto) 0.19 Baso # (Auto) 0.05 Immature Gran # (Auto) 0.02 Sodium 138 Potassium 4.1 Chloride 108 H Carbon Dioxide 24 Anion Gap 6 BUN 34 H Creatinine 1.67 H Est Cr Clr Drug Dosing 19.3 eGFR 29.28 BUN/Creatinine Ratio 20.4 H Glucose 97 Calcium 9.7 Phosphorus 4.7 Magnesium 1.9 Troponin I High Sens 612.2 H* 322.6 H* D Diagnostic Findings Cardiac Enzymes 11/14/24 11/15/24 Range/Units 23:33 05:37 Troponin I High Sens 612.2 H* 322.6 H* D (0-14) pg/ml CBC 11/15/24 Range/Units 05:41 WBC 7.14 (4.8-10.8) K/ul RBC 4.34 (4.20-5.40) M/uL Hgb 12.9 (12.0-16.0) g/dl Hct 40.5 (37.0-47.0) % Plt Count 154 (130-400) K/uL Neut # (Auto) 4.49 (1.40-6.50) K/uL Lymph # (Auto) 1.58 (1.20-3.40) K/uL Woodruff # (Auto) 0.81 H (0.11-0.59) K/uL Eos # (Auto) 0.19 (0.00-0.50) K/uL Baso # (Auto) 0.05 (0.00-0.20) K/uL Comprehensive Metabolic Panel 11/15/24 Range/Units 05:41 Sodium 138 (136-145) mmol/L Potassium 4.1 (3.5-5.1) mmol/L Chloride 108 H (98-107) mmol/L Carbon Dioxide 24 (21-32) mmol/L BUN 34 H (6-23) mg/dl Creatinine 1.67 H (0.6-1.2) mg/dl Glucose 97 (70-99(Fasting)) mg/dl Calcium 9.7 (8.6-10.3) mg/dl Intake and Output 11/15/24 11/15/24 11/15/24 06:59 14:59 22:59 Intake Total 100 / 100 Output Total 0 / 0 Balance 100 / 100 Intake: Oral 100 / 100 Output: # Bowel Movements 0 / 0 Other: # Unmeasured Voids 4 Medications Administered Home Medications Medication Instructions Recorded Confirmed Last Taken amlodipine 5 mg tablet (Norvasc) 5 mg PO QAM #30 tabs 05/21/24 11/10/24 11/09/24 apixaban 2.5 mg tablet (Eliquis) 2.5 mg PO BID #60 tabs 05/21/24 11/10/24 11/09/24 levothyroxine 75 mcg tablet 75 mcg PO DAILYBB #30 tabs 05/21/24 11/10/24 11/09/24 (Synthroid) melatonin 10 mg capsule 10 mg PO HS #30 caps 05/21/24 11/10/24 11/09/24 metoprolol succinate 25 mg 25 mg PO QAM #30 tabs 05/21/24 11/10/24 11/09/24 tablet,extended release 24 hr calcitriol 0.25 mcg capsule 0.25 mcg PO 3XWK 0511/10/24 11/07/24 pantoprazole 40 mg tablet,delayed 40 mg PO AMHS 07/16/24 11/10/24 11/09/24 release rosuvastatin 10 mg tablet 10 mg PO HS 07/16/24 11/10/24 11/09/24 trazodone 50 mg tablet 50 mg PO HS 07/16/24 11/10/24 11/09/24 acetaminophen 500 mg tablet 500 mg PO TID PRN Pain 08/21/24 11/10/24 Unknown clopidogrel 75 mg tablet 75 mg PO QAM 08/21/24 11/10/24 11/09/24 buspirone 15 mg tablet 15 mg PO BID 11/02/24 11/10/24 11/09/24 ferrous sulfate 325 mg (65 mg 325 mg PO DAILY 11/02/24 11/10/24 11/09/24 iron) tablet (FeroSul) Active Medications Generic Name Dose Route Start Last Admin Trade Name Freq PRN Reason Stop Dose Admin Acetaminophen 1,000 mg 11/14/24 17:34 11/15/24 02:23 Acetaminophen 500 Mg Tab PO 12/14/24 17:33 1,000 mg Q8H PRN Administration Mild-Mod Pain (Scale 1-6) Amlodipine Besylate 5 mg 11/11/24 09:00 11/15/24 08:03 Amlodipine Besylate 5 Mg Tab PO 12/11/24 08:59 5 mg QAM YAN Administration Apixaban 2.5 mg 11/10/24 22:30 11/13/24 10:06 Apixaban 2.5 Mg Tab PO 12/10/24 22:29 2.5 mg BID YAN Administration Buspirone HCl 15 mg 11/10/24 22:30 11/15/24 08:03 Buspirone 15 Mg Tab PO 12/10/24 22:29 15 mg BID YAN Administration Clopidogrel Bisulfate 75 mg 11/11/24 09:00 11/15/24 08:03 Clopidogrel Bisulfate 75 Mg Tab PO 12/11/24 08:59 75 mg QAM YAN Administration Ferrous Sulfate 325 mg 11/11/24 09:00 11/15/24 08:02 Ferrous Sulfate 325 Mg Tab PO 12/11/24 08:59 325 mg DAILY YAN Administration Hydromorphone HCl 0.5 mg 11/15/24 03:26 11/15/24 17:39 Hydromorphone Inj 0.5 Mg/0.5 Ml Syr IV 11/29/24 03:25 0.5 mg Q4H PRN Administration Severe Pain (Scale 7, 8, 9,10) Hydroxyzine HCl 10 mg 11/12/24 07:48 11/15/24 08:01 Hydroxyzine Hcl 10 Mg Tab PO 12/12/24 07:47 10 mg Q6H PRN Administration Anxiety/Agitation Levothyroxine Sodium 75 mcg 11/11/24 06:30 11/15/24 06:15 Levothyroxine Sodium 75 Mcg Tablet PO 12/11/24 06:29 Not Given DAILYBB YAN Melatonin 12 mg 11/11/24 02:14 11/14/24 19:48 Melatonin 3 Mg Tab PO 12/11/24 20:59 12 mg HS PRN Administration insomnia Metoprolol Succinate 25 mg 11/15/24 09:00 11/15/24 08:05 Metoprolol Succ 25mg Ext Rel Tab PO 12/15/24 08:59 25 mg QAM YAN Administration Nystatin 1 appln 11/11/24 09:00 11/15/24 13:47 Nystatin Powder 15gm Btl EXT 12/11/24 08:59 1 appln BID YAN Administration Ondansetron HCl 4 mg 11/12/24 10:53 11/15/24 03:50 Ondansetron Inj 2 Mg/Ml 2 Ml Vial IV 12/12/24 10:52 4 mg Q6H PRN Administration Nausea And Vomiting Pantoprazole Sodium 40 mg 11/11/24 09:00 11/15/24 08:03 Pantoprazole 40 Mg Tab PO 12/11/24 08:59 40 mg AMHS YAN Administration Rosuvastatin Calcium 10 mg 11/11/24 21:00 11/14/24 19:49 Rosuvastatin Calcium 10 Mg Tab PO 12/11/24 20:59 10 mg HS YAN Administration Trazodone HCl 50 mg 11/10/24 22:25 11/14/24 19:49 Trazodone Hcl 50 Mg Tab PO 12/10/24 22:24 50 mg HS YAN Administration PG Care Time/CCT Total # of Minutes Spent Total Time Spent with Patient: Total time spent is greater than 50% in coordination of care (as documented) at patient's floor/unit and/or counseling patient: Coding Level of Care Code 07248 SUB INP/OBS CARE 350MIN Diagnoses Permanent atrial fibrillation I48.21 Tachy-chaim syndrome I49.5 ASCVD (arteriosclerotic cardiovascular disease) I25.10 Aortic stenosis I35.0 Diastolic congestive heart failure I50.30 Atrial fibrillation with slow ventricular response I48.91
[2024-11-16 06:16] LABS: Hematocrit (blood only) 38.7 % (37.0-47.0); Hemoglobin 12.4 g/dl (12.0-16.0); Immature Granulocytes # (auto) 0.02 K/uL (0.01-0.20); Immature Granulocytes % (auto) 0.2 %; Mean Corpuscular Hemoglobin 30.0 pg (25.0-34.0); Mean Corpuscular Volume 93.7 fL (80.0-100.0); Platelet Count 135 K/uL (130-400); RDW Standard Deviation 45.0 fL (36.4-46.3); Red Blood Count 4.13 M/uL (4.20-5.40); White Blood Count 8.43 K/ul (4.8-10.8)
[2024-11-16 06:30] LABS: Anion Gap 5.0 (3-11); Blood Urea Nitrogen 43.0 mg/dl (6-23); Calcium 9.6 mg/dl (8.6-10.3); Carbon Dioxide 24.0 mmol/L (21-32); Chloride 107.0 mmol/L (98-107); Creatinine Clr Calc Pharmacy 25.6 ml/min; Glucose 97.0 mg/dl (70-99(Fasting)); Magnesium 2.0 mg/dl (1.7-2.4); Potassium 4.5 mmol/L (3.5-5.1); Sodium 136.0 mmol/L (136-145)
--- NOTE | 2024-11-16 08:10 | XRay Report ---
EXAM: XR chest 1V portable CLINICAL HISTORY: Follow-up pneumothorax. TECHNIQUE: An X-ray image of the chest was obtained in the AP projection. COMPARISON: 11/15/2024 CR. FINDINGS: Pulmonary Parenchyma: A left-sided chest tube is present, with its tip at the lateral aspect of the left upper lobe; this is unchanged. A suspected, less than 10% apical left pneumothorax is still noted. There is left lower zone atelectasis. The focal opacity in the right mid zone could represent an overlapping shadow. There is blunting of the left costophrenic angle. Heart and Mediastinum: There is a mildly increased cardiothoracic ratio. There is no mediastinal widening or mass. No hilar or mediastinal lymphadenopathy is seen. Bony Thorax: Sternotomy wire sutures are present. Possible right rib fractures are present and stable. Please correlate clinically. Soft Tissues: Bilateral shoulder prostheses are noted and are stable. Multiple wires are present. There is a left pacemaker. IMPRESSION: 1. A suspected, less than 10% apical left pneumothorax is still noted. Stable. 2. There is left lower zone atelectasis. Stable. 3. Mild cardiomegaly. Stable. 4. Blunting of the left costophrenic angle could represent a minimal pleural effusion (newly developed). Electronically signed by Bhavesh Arzate 11-16-2024 08:09 AM
--- NOTE | 2024-11-16 12:15 | XRay Report ---
EXAM: Radiograph of the Chest 1 View INDICATION: Follow-up pneumothorax TECHNIQUE: Frontal view of the chest. Image obtained at 11:25 AM COMPARISON: 6:51 AM the same day FINDINGS: Lungs and pleural spaces: No consolidation or pulmonary edema. No pleural effusion or pneumothorax. Heart: Stable prominent shadow and pacing device. Mediastinum: Normal contour. Bones/joints: Bilateral shoulder arthroplasty noted. Soft tissues: No abnormality noted. No radiopaque foreign body noted. Tubes, lines and devices: Stable left chest tube. Upper abdomen: No abnormality noted. IMPRESSION: No visible pneumothorax. Stable left chest tube. ACT 112: N/A Electronically signed by Sophia Reyes 11-16-2024 12:11 PM
--- NOTE | 2024-11-16 13:10 | Hospitalist Progress Note ---
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 with an episode of 4-second pause yesterd ay Cardiology has been consulted Tried to call the brother to get them approval for pacemaker if she needs it but no reply Patient seems to be capable of giving the consent for the pacemaker as she un derstands the procedure and knows without that her heart rate can go down and can cause serious problems Tried to talk to her brother but again no response since last evening even after trial of multiple times Denies any cardiac symptoms and the EKG showing paced rhythm at 70/min Denies any cardiac symptoms Left pneumothorax following pacemaker insertion Required left-sided chest tube placement earlier this morning Appreciate pulmonary input and recommendation She has been feeling much better this morning and the pneumothorax seems to have improved a lot Management of chest tube as per pulmonary No shortness of breath today and the repeat chest x-ray showed no pneumothorax Aortic pulmonary service to probably take out the chest tube Shortness of breath Possibly from uncontrolled HTN, CXR w/ no congestion. Complicated by anxiety Missed medications secondary to patient's cognitive impairment/dementia Recurrent issue for patient on review of records c/w home meds, monitor. Has had an episode of shortness of breath this morning with anxiety and chest tightness Remains hemodynamically stable and was afebrile, saturating normally on room air Condition settled down with reassurance and keeping 10 mg of hydroxyzine Will monitor while in the hospital Remains free from any shortness of breath or anxiety No more shortness of breath and no anxiety She has been requiring 3 L to maintain saturation following the incidence of pneumothorax and chest tube placement Has been requiring 2 L to maintain saturation but the patient does not have any shortness of breath at rest Intertrigo Likely fungal, worsening rash secondary to unable to apply topical medication provided by ED from last week's visit, c/w topical antifungal underneath breast tissues Showing improvement of the rash Dementia Has Mild Dementia Complicated by Anxiety/Mood disorder Does not have any acute confusion Does not have any acute confusion Other chronic medical conditions: Continue with/resume home meds as when able. H/O chronic diastolic heart failure (EF 60 to 65%, TTE 2024), euvolemic to dry Valvular heart disease (mild MR/TR) H/O CAD status post CABG/PVD/CVA A-fib on Eliquis H spam call yperlipidemia on statin rx Hypothyroidism, euthyroid as of today's TSH Hypercalcemia, possible primary hyperparathyroidism, elevated PTH on review of outpatient blood work, f/u endocrine as OP. Ca normalized. Anxiety/mood disorder, at baseline Past tobacco abuse PT OT eval Social service re: contact office of aging about patient readmission due to inability to care for self DVT prophylaxis. Eliquis-Eliquis remains on hold due to recent surgery,pacemaker insertion and also chest tube placement Full code Patient's brother Mr. Matt Boles, contact #[phone]. Text document was generated using [employer] voice recognition software. It may contain grammatical or spelling errors. Kindly contact undersigned for clarification of any documentation item in question. Admission and Anticipated Discharge Date Admission Date: November 13, 2024 Subjective Patient was seen and examined in medical telemetry unit She has dementia and anxiety disorder noted to be very anxious this morning, with chest pressure shortness of breath and nausea Denies any abdominal pain, nausea but no vomiting, no fever and no chills and has been saturating normally on room air Reassured and she was given 10 mg of hydroxyzine 11/13/2024 The patient was seen and examined in medical telemetry unit She has been feeling her best today Noted to have another episode of sinus pause of 4 seconds Denies any significant symptoms 11/14/2024 The patient was seen and examined in medical telemetry unit She was very anxious to have the procedure but later on after explaining she was happy about it Tried to call her brother but again no response since last evening She seems to be understanding about the procedure and telling that she wants to have the procedure done to avoid any problem with her heart in future She has been otherwise stable without any symptoms this morning 11/15/2024 The patient was seen and examined in telemetry unit She is status post PPM placement yesterday and noted to have a small pneumothorax on the left side following the procedure Pneumothorax got worse overnight and required chest tube placement early in the morning today She has been feeling much better today has minimal pain in the chest tube insertion site but denies any other significant symptoms 11/16/2024 The patient was seen and examined in telemetry unit She has been feeling much better and complains of minimal pain at the chest tube site Denies any palpitation or any shortness of breath Repeat chest x-ray showed no pneumothorax Review of Systems Review of Systems: All systems reviewed and are unremarkable except as noted below Physical Exam Physical Exam: Sitting on a chair without any acute distress Constitutional: well developed, well nourished and + ill appearing Eyes: PERRL, conjunctivae normal, anicteric sclerae ENMT: external ear and nose normal, oropharynx normal Neck: trachea midline, no thyromegaly Respiratory: no respiratory distress Auscultation: lungs clear to auscultation bilaterally and + diminished lung sounds (Mainly on the left side) Cardiovascular: Rate/Rhythm: regular rate and regular rhythm; not tachycardic Heart Sounds: normal S1, normal S2 and + murmur Extremities: no edema Gastrointestinal (Abdomen): Inspection/Auscultation: normal bowel sounds; abdomen not distended Percussion/Palpation: abdomen soft; abdomen nontender Neurologic: normal touch/pain/proprioception and moves all extremities; no focal motor deficits and not confused Lymphatic: no cervical or axillary lymphadenopathy Results & Data Results & Data Vital Signs (Past 12 Hours) Vital Signs Temp Pulse Resp BP Pulse Ox O2 Del Method O2 Flow Rate 11/16/24 11:45 36.5 C 74 18 116/76 99 Nasal Cannula 2 11/16/24 08:01 36.6 C 71 18 125/83 98 Nasal Cannula 2 11/16/24 03:35 36.6 C 68 16 142/86 H 99 Room Air Laboratory Results Short CBC 11/16/24 Range/Units 05:56 WBC 8.43 (4.8-10.8) K/ul Hgb 12.4 (12.0-16.0) g/dl Hct 38.7 (37.0-47.0) % Plt Count 135 (130-400) K/uL BMP 11/16/24 05:56 Sodium 136 Potassium 4.5 Chloride 107 Carbon Dioxide 24 BUN 43 H Creatinine 1.36 H D Glucose 97 Calcium 9.6 Medications Administered Current Inpatient Medications Acetaminophen (Acetaminophen 500 Mg Tab) 1,000 mg PO Q8H PRN PRN Reason: Mild-Mod Pain (Scale 1-6) Stop: 10/26/25 17:33 Last Admin: 11/15/24 22:28 Dose: 1,000 mg Amlodipine Besylate (Amlodipine Besylate 5 Mg Tab) 5 mg PO QAM [facility] Stop: 12/11/24 08:59 Last Admin: 11/16/24 09:01 Dose: 5 mg Apixaban (Apixaban 2.5 Mg Tab) 2.5 mg PO BID [facility] Stop: 12/10/24 22:29 Last Admin: 11/13/24 10:06 Dose: 2.5 mg Artificial Tears (Artificial Tears) 1 drops OPB QID PRN PRN Reason: Dryness Stop: 12/11/24 13:42 Buspirone HCl (Buspirone 15 Mg Tab) 15 mg PO BID [facility] Stop: 12/10/24 22:29 Last Admin: 11/16/24 09:01 Dose: 15 mg Clopidogrel Bisulfate (Clopidogrel Bisulfate 75 Mg Tab) [facility] [place]: 12/11/24 08:59 Last Admin: 11/16/24 09:01 Dose: 75 mg Ferrous Sulfate (Ferrous Sulfate 325 Mg Tab) 325 mg PO DAILY [facility] Stop: 12/11/24 08:59 Last Admin: 11/16/24 09:01 Dose: 325 mg Hydromorphone HCl (Hydromorphone Inj 0.5 Mg/0.5 Ml Syr) 0.25 mg IV Q4H PRN PRN Reason: Moderate Pain (Scale 4, 5, 6) Stop: 11/29/24 03:25 Hydromorphone HCl (Hydromorphone Inj 0.5 Mg/0.5 Ml Syr) 0.5 mg IV Q4H PRN PRN Reason: Severe Pain (Scale 7, 8, 9,10) Stop: 11/29/24 03:25 Last Admin: 11/16/24 06:20 Dose: 0.5 mg Hydroxyzine HCl (Hydroxyzine Hcl 10 Mg Tab) 10 mg PO Q6H PRN PRN Reason: Anxiety/Agitation Stop: 12/12/24 07:47 Last Admin: 11/15/24 22:26 Dose: 10 mg Levothyroxine Sodium (Levothyroxine Sodium 75 Mcg Tablet) [facility] Stop: 12/11/24 06:29 Last Admin: 11/16/24 06:20 Dose: 75 mcg Melatonin (Melatonin 3 Mg Tab) 12 mg PO HS PRN PRN Reason: insomnia Stop: 12/11/24 20:59 Last Admin: 11/15/24 22:29 Dose: 12 mg Metoprolol Succinate (Metoprolol Succ 25mg Ext Rel Tab) 25 mg PO QAM [facility] Stop: 12/15/24 08:59 Last Admin: 11/16/24 09:01 Dose: 25 mg Nystatin (Nystatin Powder 15gm Btl) 1 appln EXT BID [facility] Stop: 12/11/24 08:59 Last Admin: 11/16/24 09:01 Dose: 1 appln Ondansetron HCl (Ondansetron Inj 2 Mg/Ml 2 Ml Vial) 4 mg IV Q6H PRN PRN Reason: Nausea And Vomiting Stop: 12/12/24 10:52 Last Admin: 11/15/24 03:50 Dose: 4 mg Pantoprazole Sodium (Pantoprazole 40 Mg Tab) 40 mg PO [facility] Stop: 12/11/24 08:59 Last Admin: 11/16/24 09:01 Dose: 40 mg Rosuvastatin Calcium (Rosuvastatin Calcium 10 Mg Tab) 10 mg PO HS YAN Stop: 12/11/24 20:59 Last Admin: 11/15/24 22:26 Dose: 10 mg Trazodone HCl (Trazodone Hcl 50 Mg Tab) 50 mg PO HS YAN Stop: 12/10/24 22:24 Last Admin: 11/15/24 22:33 Dose: 50 mg
--- NOTE | 2024-11-16 14:59 | Communication Note ---
Date of Service: November 16, 2024 Chest tube clamped. CXR after around 90 minutes showed no pneumothorax. Chest tube removed without complications. Occlusive dressing Xeroform petrolatum gauze was applied. Coding Level of Care Code None Comment Removal of chest tube bundled into insertion procedure CPT.
--- NOTE | 2024-11-16 16:27 | Cardiology Progress Note ---
Date of Service November 16, 2024 Assessment & Plan (1) Permanent atrial fibrillation: (2) Tachy-chaim syndrome: (3) ASCVD (arteriosclerotic cardiovascular disease): (4) Aortic stenosis: (5) Diastolic congestive heart failure: (6) Atrial fibrillation with slow ventricular response: Plan 85-year-old female admitted on November 10, 2024 for evaluation of shortness of breath as well as a rash under the breasts. Telemetry monitoring with evidence of Tachy-Chaim Syndrome, likely permanent atrial fibrillation with periods of rapid ventricular response (up to 150 bpm) as well as episodes of bradycardia and pauses up to 4 seconds in duration despite being off all AV chanel blockers for at least the past 36 hours. No reversible cause identified. TSH within normal range. Options of management discussed. Permanent pacemaker implantation appears indicated though with significant logistical issues with cognitive deficits and previously noted inability to care for herself at home. Permanent atrial fibrillation with tachy-chaim syndrome S/P PPM implant Iatrogenic Pneumothorax requiring CT -> CT removed, pneumothorax resolved CAD s/p 1V CABG HFpEF Aortic stenosis HTN - uncontrolled -> better Eliquis correct and f/u electrolytes f/u renal function adjust anti-HTN meds keeping systolic BP between 100-140 mmHg avoid hypovolemia keep patient euvolemic DVT prophylaxis stable from cardiac standpoint for discharge planning f/u in cardiology clinic post discharge Admission and Anticipated Discharge Date Admission Date: November 13, 2024 Subjective Patient on exam is sitting in bed in NAD; no c/o cp, sob, palpitations, dizziness, LOC, cough Repeat chest x-ray showed no pneumothorax CT removed Review of Systems Review of Systems: none significant other than hpi Physical Exam Physical Exam: General: awake, alert, NAD. HENT: Normocephalic. Atraumatic. Eyes: Conjunctiva pink, anicteric sclerae. Neck: soft, NT, No JVD. Heart: Irregularly irregular. Grade II/ systolic ejection murmur. Chest: no rales, no wheezing Abdomen: +BS. Soft. Nontender. No masses or organomegaly. Extremities: No cyanosis, or edema. Limited neurological examination is without focal deficits. Results & Data Vital Signs (Past 12 Hours) Vital Signs Vital Signs Temp 36.6 C 11/16/24 15:35 Pulse 70 11/16/24 15:35 Resp 20 11/16/24 15:35 BP 128/71 09/28/25 15:35 Pulse Ox 97 11/16/24 15:35 O2 Del Method Nasal Cannula 11/16/24 16:09 O2 Flow Rate 3 11/16/24 16:09 Intake & Output 11/15/24 11/16/24 11/16/24 18:59 06:59 18:59 Intake Total 100 / 200 100 / 200 240 / 240 Output Total 0 / 0 0 / 0 Balance 100 / 200 100 / 200 240 / 240 Weight 63.2 kg Intake: Oral 100 / 200 100 / 200 240 / 240 Output: # Bowel Movements 0 / 0 0 / 0 Other: # Unmeasured Voids 4 1 1 Weight Measurement Method Built in [facility] Temp Pulse Resp BP Pulse Ox O2 Del Method O2 Flow Rate 11/16/24 16:09 Nasal Cannula 3 11/16/24 15:35 36.6 C 70 20 128/71 97 Nasal Cannula 2 11/16/24 11:45 36.5 C 74 18 116/76 99 Nasal Cannula 2 11/16/24 08:01 36.6 C 71 18 125/83 98 Nasal Cannula 2 Laboratory Results Laboratory Results - last 48 hr 11/14/24 11/15/24 11/15/24 23:33 05:37 05:41 WBC 7.14 RBC 4.34 Hgb 12.9 Hct 40.5 MCV 93.3 MCH 29.7 MCHC 31.9 L RDW Std Deviation 46.0 RDW Coeff of Howie 13.4 Plt Count 154 MPV 10.4 Immature Gran % (Auto) 0.3 Neut % (Auto) 62.9 Lymph % (Auto) 22.1 [place] % (Auto) 11.3 Eos % (Auto) 2.7 Baso % (Auto) 0.7 Neut # (Auto) 4.49 Lymph # (Auto) 1.58 [place] # (Auto) 0.81 H Eos # (Auto) 0.19 Baso # (Auto) 0.05 Immature Gran # (Auto) 0.02 Sodium 138 Potassium 4.1 Chloride 108 H Carbon Dioxide 24 Anion Gap 6 BUN 34 H Creatinine 1.67 H Est Cr Clr Drug Dosing 19.3 eGFR 29.28 BUN/Creatinine Ratio 20.4 H Glucose 97 Calcium 9.7 Phosphorus 4.7 Magnesium 1.9 Troponin I High Sens 612.2 H* 322.6 H* D 11/16/24 05:56 WBC 8.43 RBC 4.13 L Hgb 12.4 Hct 38.7 MCV 93.7 MCH 30.0 MCHC 32.0 RDW Std Deviation 45.0 RDW Coeff of Howie 13.2 Plt Count 135 MPV 10.1 Immature Gran % (Auto) 0.2 Neut % (Auto) 67.7 Lymph % (Auto) 19.3 [place] % (Auto) 9.1 Eos % (Auto) 3.1 Baso % (Auto) 0.6 Neut # (Auto) 5.70 Lymph # (Auto) 1.63 [place] # (Auto) 0.77 H Eos # (Auto) 0.26 Baso # (Auto) 0.05 Immature Gran # (Auto) 0.02 Sodium 136 Potassium 4.5 Chloride 107 Carbon Dioxide 24 Anion Gap 5 BUN 43 H Creatinine 1.36 H D Est Cr Clr Drug Dosing 25.6 eGFR 37.47 BUN/Creatinine Ratio 31.6 H Glucose 97 Calcium 9.6 Phosphorus Magnesium 2.0 Troponin I High Sens Diagnostic Findings CBC 11/16/24 Range/Units 05:56 WBC 8.43 (4.8-10.8) K/ul RBC 4.13 L (4.20-5.40) M/uL Hgb 12.4 (12.0-16.0) g/dl Hct 38.7 (37.0-47.0) % Plt Count 135 (130-400) K/uL Neut # (Auto) 5.70 (1.40-6.50) K/uL Lymph # (Auto) 1.63 (1.20-3.40) K/uL [place] # (Auto) 0.77 H (0.11-0.59) K/uL Eos # (Auto) 0.26 (0.00-0.50) K/uL Baso # (Auto) 0.05 (0.00-0.20) K/uL Comprehensive Metabolic Panel 11/16/24 Range/Units 05:56 Sodium 136 (136-145) mmol/L Potassium 4.5 (3.5-5.1) mmol/L Chloride 107 (98-107) mmol/L Carbon Dioxide 24 (21-32) mmol/L BUN 43 H (6-23) mg/dl Creatinine 1.36 H D (0.6-1.2) mg/dl Glucose 97 (70-99(Fasting)) mg/dl Calcium 9.6 (8.6-10.3) mg/dl Intake and Output 11/16/24 11/16/24 11/16/24 06:59 14:59 22:59 Intake Total 240 / 240 Balance 240 / 240 Intake: Oral 240 / 240 Other: # Unmeasured Voids 1 1 Weight 63.2 kg Weight Measurement Method Built in [facility] Laboratory Results WBC 8.43 K/ul (4.8-10.8) 11/16/24 05:56 RBC 4.13 M/uL (4.20-5.40) L 11/16/24 05:56 Hgb 12.4 g/dl (12.0-16.0) 11/16/24 05:56 Hct 38.7 % (37.0-47.0) 11/16/24 05:56 MCV 93.7 fL (80.0-100.0) 11/16/24 05:56 MCH 30.0 pg (25.0-34.0) 11/16/24 05:56 MCHC 32.0 g/dL (32.0-36.0) 11/16/24 05:56 RDW Std Deviation 45.0 fL (36.4-46.3) 11/16/24 05:56 RDW Coeff of Howie 13.2 % (11.5-14.5) 11/16/24 05:56 Plt Count 135 K/uL (130-400) 11/16/24 05:56 MPV 10.1 fL (9.4-12.4) 11/16/24 05:56 Immature Gran % (Auto) 0.2 % 11/16/24 05:56 Neut % (Auto) 67.7 % 11/16/24 05:56 Lymph % (Auto) 19.3 % 11/16/24 05:56 [place] % (Auto) 9.1 % 11/16/24 05:56 Eos % (Auto) 3.1 % 11/16/24 05:56 Baso % (Auto) 0.6 % 11/16/24 05:56 Neut # (Auto) 5.70 K/uL (1.40-6.50) 11/16/24 05:56 Lymph # (Auto) 1.63 K/uL (1.20-3.40) 11/16/24 05:56 [place] # (Auto) 0.77 K/uL (0.11-0.59) H 11/16/24 05:56 Eos # (Auto) 0.26 K/uL (0.00-0.50) 11/16/24 05:56 Baso # (Auto) 0.05 K/uL (0.00-0.20) 11/16/24 05:56 Immature Gran # (Auto) 0.02 K/uL (0.01-0.20) 11/16/24 05:56 PT 12.3 Seconds (9.0-12.0) H 11/10/24 20:00 INR 1.1 (0.9-1.1) 11/10/24 20:00 APTT 27 Seconds (21-31) 11/10/24 20:00 PTT Ratio 1.0 11/10/24 20:00 Sodium 136 mmol/L (136-145) 11/16/24 05:56 Potassium 4.5 mmol/L (3.5-5.1) 11/16/24 05:56 Chloride 107 mmol/L (98-107) 11/16/24 05:56 Carbon Dioxide 24 mmol/L (21-32) 11/16/24 05:56 Anion Gap 5 (3-11) 11/16/24 05:56 BUN 43 mg/dl (6-23) H 11/16/24 05:56 Creatinine 1.36 mg/dl (0.6-1.2) H D 11/16/24 05:56 Est Cr Clr Drug Dosing 25.6 ml/min 11/16/24 05:56 eGFR 37.47 11/16/24 05:56 BUN/Creatinine Ratio 31.6 (10-20) H 11/16/24 05:56 Glucose 97 mg/dl (70-99(Fasting)) 11/16/24 05:56 Calcium 9.6 mg/dl (8.6-10.3) 11/16/24 05:56 Phosphorus 4.7 mg/dl (2.5-4.9) 11/15/24 05:41 Magnesium 2.0 mg/dl (1.7-2.4) 11/16/24 05:56 Total Bilirubin 1.1 mg/dl (0.2-1.0) H 11/10/24 20:00 AST 16 U/L (13-39) 11/10/24 20:00 ALT 9 U/L (7-52) 11/10/24 20:00 Alkaline Phosphatase 65 U/L (34-104) 11/10/24 20:00 Troponin I High Sens 322.6 pg/ml (0-14) H* D 11/15/24 05:37 Total Protein 7.0 gm/dl (6.0-8.3) 11/10/24 20:00 Albumin 3.8 gm/dl (3.4-5.0) 11/10/24 20:00 Globulin 3.2 gm/dl (2.5-4.0) 11/10/24 20:00 Albumin/Globulin Ratio 1.2 (0.9-2) 11/10/24 20:00 25-OH Vitamin D Total 13.5 ng/ml (30-100) L 11/11/24 05:22 TSH 1.213 uIu/ml (0.300-4.500) 11/10/24 20:00 PTH Intact 104.0 pg/ml (12.0-88.0) H 11/11/24 05:22 Urine Color Yellow 11/10/24 18:44 Urine Appearance Clear (Clear) 11/10/24 18:44 Urine pH 8.0 (4.5-7.5) H 11/10/24 18:44 Ur Specific [place] 1.010 (1.000-1.030) 11/10/24 18:44 Urine Protein Trace (Negative) H 11/10/24 18:44 Urine Glucose (UA) Negative (Negative) 11/10/24 18:44 Urine Ketones Trace (Negative) H 11/10/24 18:44 Urine Blood Negative (Negative) 11/10/24 18:44 Urine Nitrite Negative (Negative) 11/10/24 18:44 Urine Bilirubin Negative (Negative) 11/10/24 18:44 Urine Urobilinogen Negative (Negative) 11/10/24 18:44 Ur Leukocyte Esterase Negative (Negative) 11/10/24 18:44 Urine WBC (Auto) 0-5 /hpf (0-5) 11/10/24 18:44 Urine RBC (Auto) 0-2 /hpf (0-2) 11/10/24 18:44 U Hyaline Cast (Auto) 0-2 /lpf (0-2) 11/10/24 18:44 U Epithel Cells (Auto) 0-2 /hpf (0-2) 11/10/24 18:44 Urine Bacteria (Auto) None Seen (None Seen) 11/10/24 18:44 Urine Comment 11/10/24 18:[address] 11/10/24 18:44 Exam: CT head/brain without contrast. Reason for exam: Confusion. Previous studies: CT head 09/01/2024 FINDINGS: No intracranial mass, hemorrhage or edema is found. 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 There is diffuse atrophy and lucency in the deep white matter. Extensive atherosclerotic calcification seen in the cerebral arteries. Ventricular size is stable. IMPRESSION: 1. Negative for acute intracranial process. No mass or hemorrhage. 2. Stable appearance chronic atrophy and ischemic angiopathy deep white matter. 3. Note that the 1.4 cm meningioma along the left frontal convexity is not well seen on this unenhanced only scan. If further evaluation is indicated, gadolinium-enhanced MRI study is recommended. Electronically signed by Raoul Gonzalez 11-10-2024 8:15 PM Chest X-Ray 11/16/24 11:30 EXAM: Radiograph of the Chest 1 View INDICATION: Follow-up pneumothorax TECHNIQUE: Frontal view of the chest. Image obtained at 11:25 AM COMPARISON: 6:51 AM the same day FINDINGS: Lungs and pleural spaces: No consolidation or pulmonary edema. No pleural effusion or pneumothorax. Heart: Stable prominent shadow and pacing device. Mediastinum: Normal contour. Bones/joints: Bilateral shoulder arthroplasty noted. Soft tissues: No abnormality noted. No radiopaque foreign body noted. Tubes, lines and devices: Stable left chest tube. Upper abdomen: No abnormality noted. IMPRESSION: No visible pneumothorax. Stable left chest tube. ACT 112: N/A Electronically signed by Sophia Reyes 11-16-2024 12:11 PM Medications Administered Home Medications Medication Instructions Recorded Confirmed Last Taken amlodipine 5 mg tablet (Norvasc) 5 mg PO QAM #30 tabs 05/21/24 11/10/24 11/09/24 apixaban 2.5 mg tablet (Eliquis) 2.5 mg PO BID #60 tabs 05/21/24 11/10/24 11/09/24 levothyroxine 75 mcg tablet 75 mcg PO DAILYBB #30 tabs 05/21/24 11/10/24 11/09/24 (Synthroid) melatonin 10 mg capsule 10 mg PO HS #30 caps 05/21/24 11/10/24 11/09/24 metoprolol succinate 25 mg 25 mg PO QAM #30 tabs 05/21/24 11/10/24 11/09/24 tablet,extended release 24 hr calcitriol 0.25 mcg capsule 0.25 mcg PO 3XWK 07/16/24 11/10/24 11/07/24 pantoprazole 40 mg tablet,delayed 40 mg PO AMHS 07/16/24 11/10/24 11/09/24 release rosuvastatin 10 mg tablet 10 mg PO HS 07/16/24 11/10/24 11/09/24 trazodone 50 mg tablet 50 mg PO HS 07/16/24 11/10/24 11/09/24 acetaminophen 500 mg tablet 500 mg PO TID PRN Pain 08/21/24 11/10/24 Unknown clopidogrel 75 mg tablet 75 mg PO QAM 08/21/24 11/10/24 11/09/24 buspirone 15 mg tablet 15 mg PO BID 11/02/24 11/10/24 11/09/24 ferrous sulfate 325 mg (65 mg 325 mg PO DAILY 11/02/24 11/10/24 11/09/24 iron) tablet (FeroSul) Active Medications Generic Name Dose Route Start Last Admin Trade Name Donny PRN Reason Stop Dose Admin Acetaminophen 1,000 mg 11/14/24 17:34 11/15/24 22:28 Acetaminophen 500 Mg Tab PO 12/14/24 17:33 1,000 mg Q8H PRN Administration Mild-Mod Pain (Scale 1-6) Amlodipine Besylate 5 mg 11/11/24 09:00 11/16/24 09:01 Amlodipine Besylate 5 Mg Tab PO 12/11/24 08:59 5 mg QAM YAN Administration Apixaban 2.5 mg 11/10/24 22:30 11/13/24 10:06 Apixaban 2.5 Mg Tab PO 12/10/24 22:29 2.5 mg BID YAN Administration Buspirone HCl 15 mg 11/10/24 22:30 11/16/24 09:01 Buspirone 15 Mg Tab PO 12/10/24 22:29 15 mg BID YAN Administration Clopidogrel Bisulfate 75 mg 11/11/24 09:00 11/16/24 09:01 Clopidogrel Bisulfate 75 Mg Tab PO 12/11/24 08:59 75 mg QAM YAN Administration Ferrous Sulfate 325 mg 11/11/24 09:00 11/16/24 09:01 Ferrous Sulfate 325 Mg Tab PO 12/11/24 08:59 325 mg DAILY YAN Administration Hydromorphone HCl 0.5 mg 11/15/24 03:26 11/16/24 13:31 Hydromorphone Inj 0.5 Mg/0.5 Ml Syr IV 11/29/24 03:25 0.5 mg Q4H PRN Administration Severe Pain (Scale 7, 8, 9,10) Hydroxyzine HCl 10 mg 11/12/24 07:48 11/15/24 22:26 Hydroxyzine Hcl 10 Mg Tab PO 12/12/24 07:47 10 mg Q6H PRN Administration Anxiety/Agitation Levothyroxine Sodium 75 mcg 11/11/24 06:30 11/16/24 06:20 Levothyroxine Sodium 75 Mcg Tablet PO 12/11/24 06:29 75 mcg DAILYBB YAN Administration Melatonin 12 mg 11/11/24 02:14 11/15/24 22:29 Melatonin 3 Mg Tab PO 12/11/24 20:59 12 mg HS PRN Administration insomnia Metoprolol Succinate 25 mg 11/15/24 09:00 11/16/24 09:01 Metoprolol Succ 25mg Ext Rel Tab PO 12/15/24 08:59 25 mg QAM YAN Administration Nystatin 1 appln 11/11/24 09:00 11/16/24 09:01 Nystatin Powder 15gm Btl EXT 12/11/24 08:59 1 appln BID YAN Administration Ondansetron HCl 4 mg 11/12/24 10:53 11/15/24 03:50 Ondansetron Inj 2 Mg/Ml 2 Ml Vial IV 12/12/24 10:52 4 mg Q6H PRN Administration Nausea And Vomiting Pantoprazole Sodium 40 mg 11/11/24 09:00 11/16/24 09:01 Pantoprazole 40 Mg Tab PO 12/11/24 08:59 40 mg AMHS YAN Administration Rosuvastatin Calcium 10 mg 11/11/24 21:00 11/15/24 22:26 Rosuvastatin Calcium 10 Mg Tab PO 12/11/24 20:59 10 mg HS YAN Administration Trazodone HCl 50 mg 11/10/24 22:25 11/15/24 22:33 Trazodone Hcl 50 Mg Tab PO 12/10/24 22:24 50 mg HS YAN Administration PG Care Time/CCT Total # of Minutes Spent Total Time Spent with Patient: Total time spent is greater than 50% in coordination of care (as documented) at patient's floor/unit and/or counseling patient: Coding Level of Care Code 74993 SUB INP/OBS CARE 3/50MIN Diagnoses Permanent atrial fibrillation I48.21 Tachy-chaim syndrome I49.5 ASCVD (arteriosclerotic cardiovascular disease) I25.10 Aortic stenosis I35.0 Diastolic congestive heart failure I50.30 Atrial fibrillation with slow ventricular response I48.91
--- NOTE | 2024-11-16 23:28 | XRay Report ---
EXAM: XR chest 1V portable CLINICAL HISTORY: sob. TECHNIQUE: An X-ray image of the chest was obtained in the AP projection. COMPARISON: Prior dated 11/16/2024. FINDINGS: Pulmonary Parenchyma: An accurately placed single-lead cardiac pacemaker device is noted. The previously visualized left pleural drain is not seen in this recent study. The previously visualized left apical pneumothorax is not clearly seen in this recent study. A stable appearing right lower zone opacity is present. There is no definite evidence of consolidation, collapse, or focal opacities. No pulmonary nodules are identified. There is no evidence of pleural effusion or pleural thickening. Heart and Mediastinum: The heart size is moderately enlarged and stable. There is no mediastinal widening or masses. No hilar or mediastinal lymphadenopathy is seen. Aortic arch calcifications are noted. Bony Thorax: The bony thorax appears intact without fractures or deformities. Bilateral intact shoulder implants are noted. Soft Tissues: The soft tissues overlying the chest wall are unremarkable. Sternotomy sutures are seen in the midline. IMPRESSION: 1. An accurately placed single-lead cardiac pacemaker device is again noted. 2. The previously visualized left pleural drain is not seen in this recent study. 3. The previously reported left apical pneumothorax is not clearly identified in this recent study. A CT may prove further helpful in evaluation if clinically suspected. 4. No active consolidation or soft tissue nodular infiltration is seen in both lungs. A stable appearing right lower zone opacity is noted and is likely due to the summation of shadows. 5. Moderate cardiomegaly, stable. Electronically signed by Bhavesh Arzate 11-16-2024 11:28 PM
[2024-11-17] MEDS: HYDROmorphone INJ 0.5 MG/0.5 ML SYR IV PRN (05:07)
--- NOTE | 2024-11-17 06:25 | Electrocardiogram Report ---
Test Reason : Blood Pressure : */* mmHG Vent. Rate : 73 BPM Atrial Rate : 73 BPM P-R Int : * ms QRS Dur : 122 ms QT Int : 428 ms P-R-T Axes : * -37 67 degrees QTcB Int : 471 ms Ventricular-paced rhythm Abnormal ECG When compared with ECG of 12-Nov-2024 07:59, Ventricular pacing is now present Confirmed by Michi Sahni ([id number]) on 11/17/2024 6:25:31 AM Referred By: REFERRED SELF Confirmed By: Michi Sahni
[2024-11-17 06:36] LABS: Hematocrit (blood only) 40.0 % (37.0-47.0); Hemoglobin 13.3 g/dl (12.0-16.0); Immature Granulocytes # (auto) 0.01 K/uL (0.01-0.20); Immature Granulocytes % (auto) 0.2 %; Mean Corpuscular Hemoglobin 30.9 pg (25.0-34.0); Mean Corpuscular Volume 93.0 fL (80.0-100.0); Platelet Count 137 K/uL (130-400); RDW Standard Deviation 45.0 fL (36.4-46.3); Red Blood Count 4.30 M/uL (4.20-5.40); White Blood Count 5.93 K/ul (4.8-10.8)
[2024-11-17 06:57] LABS: Anion Gap 7.0 (3-11); Blood Urea Nitrogen 37.0 mg/dl (6-23); Calcium 9.9 mg/dl (8.6-10.3); Carbon Dioxide 23.0 mmol/L (21-32); Chloride 107.0 mmol/L (98-107); Creatinine Clr Calc Pharmacy 28.5 ml/min; Glucose 93.0 mg/dl (70-99(Fasting)); Magnesium 2.0 mg/dl (1.7-2.4); Potassium 4.4 mmol/L (3.5-5.1); Sodium 137.0 mmol/L (136-145)
--- NOTE | 2024-11-17 10:35 | Cardiology Progress Note ---
Date of Service November 17, 2024 Assessment & Plan (1) Permanent atrial fibrillation: (2) Tachy-ramez syndrome: (3) ASCVD (arteriosclerotic cardiovascular disease): (4) Aortic stenosis: (5) Diastolic congestive heart failure: (6) Atrial fibrillation with slow ventricular response: Plan 85-year-old female admitted on November 10, 2024 for evaluation of shortness of breath as well as a rash under the breasts. Telemetry monitoring with evidence of Tachy-Ramez Syndrome, likely permanent atrial fibrillation with periods of rapid ventricular response (up to 150 bpm) as well as episodes of bradycardia and pauses up to 4 seconds in duration despite being off all AV chanel blockers for at least the past 36 hours. No reversible cause identified. TSH within normal range. Options of management discussed. Permanent pacemaker implantation appears indicated though with significant logistical issues with cognitive deficits and previously noted inability to care for herself at home. Permanent atrial fibrillation with tachy-ramez syndrome S/P PPM implant Iatrogenic Pneumothorax requiring CT -> CT removed, pneumothorax resolved CAD s/p 1V CABG HFpEF Aortic stenosis HTN - uncontrolled -> better Eliquis correct and f/u electrolytes f/u renal function adjust anti-HTN meds keeping systolic BP between 100-140 mmHg avoid hypovolemia keep patient euvolemic DVT prophylaxis stable from cardiac standpoint for discharge planning f/u in cardiology clinic post discharge 11/17/2024 Patient remains hemodynamically and rhythmically stable with ventricular paced rhythm and controlled ventricular rates. Pacemaker functioning appropriately. Issues addressed as follows 1. Permanent atrial fibrillation with tachybradycardia syndrome status post single l-chamber pacemaker. Normal device function patient has resumed anticoagulation with Eliquis heart rate is controlled on current therapies 2. Postoperative iatrogenic pneumothorax resolved 3. Aortic stenosis stable Recommendations clinically stable from cardiac standpoint with discharge planning in process. Follow-up with pacemaker clinic posthospitalization. Will sign off contact with questions Admission and Anticipated Discharge Date Admission Date: November 13, 2024 Subjective Patient was seen and personally examined. No cardiac complaints. Ambulatory in room. Telemetry demonstrates normally functioning pacemaker No shortness of breath or cough Review of Systems Review of Systems: All systems reviewed & are unremarkable except as noted in Subjective Physical Exam Constitutional: WD/WN, vitals as above Eyes: PERRL, conjunctivae normal, anicteric sclerae Neck: trachea midline, no thyromegaly Respiratory: Good aeration to both apices no rhonchi rales or wheeze Cardiovascular: Rate/Rhythm: regular rate (Ventricular paced rhythm) Heart Sounds: + murmur (Grade 2 overr 6 systolic) Vessels: no JVD Extremities: no edema Chest (Breasts): Chest: + pacemaker (Surgical site bandaged without hematoma) Gastrointestinal (Abdomen): normal bowel sounds, soft, nontender, no hepatosplenomegaly Musculoskeletal: no cyanosis or clubbing, extremities motor strength 5/5 Results & Data Vital Signs (Past 12 Hours) Vital Signs Temp Pulse Pulse Resp BP Pulse Ox O2 Del Method 11/17/24 07:26 36.3 C L 71 20 173/81 H 99 Nasal Cannula 11/17/24 07:00 72 11/17/24 04:48 36.4 C L 71 17 107/70 99 Nasal Cannula 11/16/24 23:52 36.6 C 69 17 128/82 100 Nasal Cannula O2 Flow Rate 11/17/24 07:26 2 11/17/24 07:00 11/17/24 04:48 2 11/16/24 23:52 2 Laboratory Results Laboratory Results - last 24 hr 11/16/24 11/17/24 21:42 05:32 WBC 5.93 RBC 4.30 Hgb 13.3 Hct 40.0 MCV 93.0 MCH 30.9 MCHC 33.3 RDW Std Deviation 45.0 RDW Coeff of Howie 13.1 Plt Count 137 MPV 10.4 Immature Gran % (Auto) 0.2 Neut % (Auto) 52.1 Lymph % (Auto) 33.4 [place] % (Auto) 9.6 Eos % (Auto) 4.0 Baso % (Auto) 0.7 Neut # (Auto) 3.09 Lymph # (Auto) 1.98 [place] # (Auto) 0.57 Eos # (Auto) 0.24 Baso # (Auto) 0.04 Immature Gran # (Auto) 0.01 Sodium 137 Potassium 4.4 Chloride 107 Carbon Dioxide 23 Anion Gap 7 BUN 37 H Creatinine 1.24 H Est Cr Clr Drug Dosing 28.5 eGFR 41.86 BUN/Creatinine Ratio 29.8 H Glucose 93 Calcium 9.9 Magnesium 2.0 Troponin I High Sens 56.9 H* D 46.0 H D PG Care Time/CCT Total # of Minutes Spent Total Time Spent with Patient: Total time spent is greater than 50% in coordination of care (as documented) at patient's floor/unit and/or counseling patient: Coding Level of Care Code 79384 SUB INP/OBS CARE 350MIN Diagnoses Permanent atrial fibrillation I48.21 Tachy-ramez syndrome I49.5 ASCVD (arteriosclerotic cardiovascular disease) I25.10 Aortic stenosis I35.0 Diastolic congestive heart failure I50.30 Atrial fibrillation with slow ventricular response I48.91
--- NOTE | 2024-11-17 10:46 | Electrocardiogram Report ---
Test Reason : Blood Pressure : */* mmHG Vent. Rate : 70 BPM Atrial Rate : 79 BPM P-R Int : * ms QRS Dur : 124 ms QT Int : 418 ms P-R-T Axes : * 107 52 degrees QTcB Int : 451 ms Ventricular-paced rhythm Abnormal ECG When compared with ECG of 14-Nov-2024 22:52, Vent. rate has decreased by 3 bpm Confirmed by Albino Crowe ([id number]) on 11/17/2024 10:46:37 AM Referred By: REFERRED SELF Confirmed By: Albino Crowe
--- NOTE | 2024-11-17 12:38 | Hospitalist Progress Note ---
Date of Service November 17, 2024 Assessment & Plan (1) SOB (shortness of breath): Plan: Sinus [id number] Syndrome: status post pacemaker insertion on 11/14/2024 Noted to up to 3.5-second pause Atrial fibrillation with bradycardia at times Her metoprolol dose has been decreased EKG was unremarkable Will correct electrolytes if decreased Doubt any other significant problem 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 with an episode of 4-second pause yesterd ay Cardiology has been consulted Tried to call the brother to get them approval for pacemaker if she needs it but no reply Patient seems to be capable of giving the consent for the pacemaker as she un derstands the procedure and knows without that her heart rate can go down and can cause serious problems Tried to talk to her brother but again no response since last evening even after trial of multiple times Denies any cardiac symptoms and the EKG showing paced rhythm at 70/min Remains medically and hemodynamically stable Likely discharge in a day or 2 to her previous living condition Left pneumothorax following pacemaker insertion Required left-sided chest tube placement earlier this morning Appreciate pulmonary input and recommendation She has been feeling much better this morning and the pneumothorax seems to have improved a lot Management of chest tube as per pulmonary No shortness of breath today and the repeat chest x-ray showed no pneumothorax Aortic pulmonary service to probably take out the chest tube The chest tube was discontinued yesterday and chest x-ray following that did not show any more pneumothorax Shortness of breath Possibly from uncontrolled HTN, CXR w/ no congestion. Complicated by anxiety Missed medications secondary to patient's cognitive impairment/dementia Recurrent issue for patient on review of records c/w home meds, monitor. Has had an episode of shortness of breath this morning with anxiety and chest tightness Remains hemodynamically stable and was afebrile, saturating normally on room air Condition settled down with reassurance and keeping 10 mg of hydroxyzine Will monitor while in the hospital Remains free from any shortness of breath or anxiety No more shortness of breath and no anxiety She has been requiring 3 L to maintain saturation following the incidence of pneumothorax and chest tube placement Has been requiring 2 L to maintain saturation but the patient does not have any shortness of breath at rest She has been saturating normally on room air and will be discharged in a day or 2 Intertrigo Likely fungal, worsening rash secondary to unable to apply topical medication provided by ED from last week's visit, c/w topical antifungal underneath breast tissues Showing improvement of the rash Dementia Has Mild Dementia Complicated by Anxiety/Mood disorder Does not have any acute confusion Does not have any acute confusion Other chronic medical conditions: Continue with/resume home meds as when able. H/O chronic diastolic heart failure (EF 60 to 65%, TTE 2024), euvolemic to dry Valvular heart disease (mild MR/TR) H/O CAD status post CABG/PVD/CVA A-fib on Eliquis H spam call yperlipidemia on statin rx Hypothyroidism, euthyroid as of today's TSH Hypercalcemia, possible primary hyperparathyroidism, elevated PTH on review of outpatient blood work, f/u endocrine as OP. Ca normalized. Anxiety/mood disorder, at baseline Past tobacco abuse PT OT eval Social service re: contact office of aging about patient readmission due to inability to care for self DVT prophylaxis. Eliquis-Eliquis remains on hold due to recent surgery,pacemaker insertion and also chest tube placement Full code Patient's brother Mr. Matt Boles, contact #[phone].- called multiple times without any reply Text document was generated using [employer] voice recognition software. It may contain grammatical or spelling errors. Kindly contact undersigned for clarification of any documentation item in question. Admission and Anticipated Discharge Date Admission Date: November 13, 2024 Subjective Patient was seen and examined in medical telemetry unit She has dementia and anxiety disorder noted to be very anxious this morning, with chest pressure shortness of breath and nausea Denies any abdominal pain, nausea but no vomiting, no fever and no chills and has been saturating normally on room air Reassured and she was given 10 mg of hydroxyzine 11/13/2024 The patient was seen and examined in medical telemetry unit She has been feeling her best today Noted to have another episode of sinus pause of 4 seconds Denies any significant symptoms 11/14/2024 The patient was seen and examined in medical telemetry unit She was very anxious to have the procedure but later on after explaining she was happy about it Tried to call her brother but again no response since last evening She seems to be understanding about the procedure and telling that she wants to have the procedure done to avoid any problem with her heart in future She has been otherwise stable without any symptoms this morning 11/15/2024 The patient was seen and examined in telemetry unit She is status post PPM placement yesterday and noted to have a small pneumothorax on the left side following the procedure Pneumothorax got worse overnight and required chest tube placement early in the morning today She has been feeling much better today has minimal pain in the chest tube insertion site but denies any other significant symptoms 11/16/2024 The patient was seen and examined in telemetry unit She has been feeling much better and complains of minimal pain at the chest tube site Denies any palpitation or any shortness of breath Repeat chest x-ray showed no pneumothorax 11/17/2024 The patient was seen and examined in telemetry unit She has been stable and does not have any more chest pain The chest tube is out yesterday did not show any more pneumothorax She denies any other significant symptoms Review of Systems Review of Systems: All systems reviewed and are unremarkable except as noted below Physical Exam Physical Exam: Sitting on a chair without any acute distress Constitutional: well developed, well nourished and + ill appearing Eyes: PERRL, conjunctivae normal, anicteric sclerae ENMT: external ear and nose normal, oropharynx normal Neck: trachea midline, no thyromegaly Respiratory: no respiratory distress Auscultation: lungs clear to auscultation bilaterally and + diminished lung sounds Cardiovascular: Rate/Rhythm: regular rate and regular rhythm; not tachycardic Heart Sounds: normal S1, normal S2 and + murmur Extremities: no edema Gastrointestinal (Abdomen): Inspection/Auscultation: normal bowel sounds; ab domen not distended Percussion/Palpation: abdomen soft; abdomen nontender Musculoskeletal: No acute arthritis involving any of the joint Neurologic: normal touch/pain/proprioception and moves all extremities; no focal motor deficits and not confused Lymphatic: no cervical or axillary lymphadenopathy Results & Data Results & Data Vital Signs (Past 12 Hours) Vital Signs Temp Pulse Pulse Resp BP Pulse Ox O2 Del Method 11/17/24 12:00 37.1 C 69 18 114/75 99 Room Air 11/17/24 07:26 36.3 C L 71 20 173/81 H 99 Nasal Cannula 11/17/24 07:00 72 11/17/24 04:48 36.4 C L 71 17 107/70 99 Nasal Cannula O2 Flow Rate 11/17/24 12:00 11/17/24 07:26 2 11/17/24 07:00 11/17/24 04:48 2 Laboratory Results Short CBC 11/17/24 Range/Units 05:32 WBC 5.93 (4.8-10.8) K/ul Hgb 13.3 (12.0-16.0) g/dl Hct 40.0 (37.0-47.0) % Plt Count 137 (130-400) K/uL BMP 11/17/24 05:32 Sodium 137 Potassium 4.4 Chloride 107 Carbon Dioxide 23 BUN 37 H Creatinine 1.24 H Glucose 93 Calcium 9.9 Medications Administered Current Inpatient Medications Acetaminophen (Acetaminophen 500 Mg Tab) 1,000 mg PO Q8H PRN PRN Reason: Mild-Mod Pain (Scale 1-6) Stop: 12/14/24 17:33 Last Admin: 11/15/24 22:28 Dose: 1,000 mg Amlodipine Besylate (Amlodipine Besylate 5 Mg Tab) [facility] [place]: 12/11/24 08:59 Last Admin: 11/17/24 09:11 Dose: 5 mg Apixaban (Apixaban 2.5 Mg Tab) 2.5 mg PO BID [facility] Stop: 12/10/24 22:29 Last Admin: 11/13/24 10:06 Dose: 2.5 mg Artificial Tears (Artificial Tears) 1 drops OPB QID PRN PRN Reason: Dryness Stop: 12/11/24 13:42 Buspirone HCl (Buspirone 15 Mg Tab) 15 mg PO BID [facility] Stop: 12/10/24 22:29 Last Admin: 11/17/24 09:12 Dose: 15 mg Clopidogrel Bisulfate (Clopidogrel Bisulfate 75 Mg Tab) 75 mg PO QAM [facility] Stop: 12/11/24 08:59 Last Admin: 11/17/24 09:12 Dose: 75 mg Ferrous Sulfate (Ferrous Sulfate 325 Mg Tab) 325 mg PO DAILY [facility] Stop: 12/11/24 08:59 Last Admin: 11/17/24 09:11 Dose: 325 mg Hydromorphone HCl (Hydromorphone Inj 0.5 Mg/0.5 Ml Syr) 0.25 mg IV Q4H PRN PRN Reason: Moderate Pain (Scale 4, 5, 6) Stop: 11/29/24 03:25 Last Admin: 11/17/24 05:07 Dose: 0.25 mg Hydromorphone HCl (Hydromorphone Inj 0.5 Mg/0.5 Ml Syr) 0.5 mg IV Q4H PRN PRN Reason: Severe Pain (Scale 7, 8, 9,10) Stop: 11/29/24 03:25 Last Admin: 11/16/24 21:36 Dose: 0.5 mg Hydroxyzine HCl (Hydroxyzine Hcl 10 Mg Tab) 10 mg PO Q6H PRN PRN Reason: Anxiety/Agitation Stop: 12/12/24 07:47 Last Admin: 11/16/24 23:08 Dose: 10 mg Levothyroxine Sodium (Levothyroxine Sodium 75 Mcg Tablet) 75 mcg PO DAILYBB YAN Stop: 12/11/24 06:29 Last Admin: 11/17/24 05:07 Dose: 75 mcg Melatonin (Melatonin 3 Mg Tab) 12 mg PO HS PRN PRN Reason: insomnia Stop: 12/11/24 20:59 Last Admin: 11/16/24 23:13 Dose: 12 mg Metoprolol Succinate (Metoprolol Succ 25mg Ext Rel Tab) 25 mg PO QAM [facility] Stop: 12/15/24 08:59 Last Admin: 11/17/24 09:11 Dose: 25 mg Nystatin (Nystatin Powder 15gm Btl) 1 appln EXT BID [facility] Stop: 12/11/24 08:59 Last Admin: 11/17/24 09:12 Dose: 1 appln Ondansetron HCl (Ondansetron Inj 2 Mg/Ml 2 Ml Vial) 4 mg IV Q6H PRN PRN Reason: Nausea And Vomiting Stop: 12/12/24 10:52 Last Admin: 11/15/24 03:50 Dose: 4 mg Pantoprazole Sodium (Pantoprazole 40 Mg Tab) 40 mg PO AMHS YAN Stop: 12/11/24 08:59 Last Admin: 11/17/24 09:12 Dose: 40 mg Rosuvastatin Calcium (Rosuvastatin Calcium 10 Mg Tab) 10 mg PO HS [facility] Stop: 12/11/24 20:59 Last Admin: 11/16/24 23:09 Dose: 10 mg Trazodone HCl (Trazodone Hcl 50 Mg Tab) 50 mg PO HS [facility] Stop: 12/10/24 22:24 Last Admin: 11/16/24 23:13 Dose: 50 mg
[2024-11-18 02:30] VITALS: RESP 18
[2024-11-18 08:02] VITALS: O2SAT 95
[2024-11-18 11:24] VITALS: BP 113/74; TEMP 97.7
--- NOTE | 2024-11-18 11:29 | Hospitalist Progress Note ---
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 with an episode of 4-second pause yesterd ay Cardiology has been consulted Tried to call the brother to get them approval for pacemaker if she needs it but no reply Patient seems to be capable of giving the consent for the pacemaker as she un derstands the procedure and knows without that her heart rate can go down and can cause serious problems Tried to talk to her brother but again no response since last evening even after trial of multiple times Denies any cardiac symptoms and the EKG showing paced rhythm at 70/min Remains medically and hemodynamically stable Remains asymptomatic and will be discharged back to the facility this afternoon Left pneumothorax following pacemaker insertion Required left-sided chest tube placement earlier this morning Appreciate pulmonary input and recommendation She has been feeling much better this morning and the pneumothorax seems to have improved a lot Management of chest tube as per pulmonary No shortness of breath today and the repeat chest x-ray showed no pneumothorax Aortic pulmonary service to probably take out the chest tube The chest tube was discontinued yesterday and chest x-ray following that did not show any more pneumothorax Does not have any respiratory symptoms and has been saturating normally on room air Shortness of breath Possibly from uncontrolled HTN, CXR w/ no congestion. Complicated by anxiety Missed medications secondary to patient's cognitive impairment/dementia Recurrent issue for patient on review of records c/w home meds, monitor. Has had an episode of shortness of breath this morning with anxiety and chest tightness Remains hemodynamically stable and was afebrile, saturating normally on room air Condition settled down with reassurance and keeping 10 mg of hydroxyzine Will monitor while in the hospital Remains free from any shortness of breath or anxiety No more shortness of breath and no anxiety She has been requiring 3 L to maintain saturation following the incidence of pneumothorax and chest tube placement Has been requiring 2 L to maintain saturation but the patient does not have any shortness of breath at rest She has been saturating normally on room air and will be discharged in a day or 2 No shortness of breath at rest or with minimal exertion Intertrigo Likely fungal, worsening rash secondary to unable to apply topical medication provided by ED from last week's visit, c/w topical antifungal underneath breast tissues Showing improvement of the rash Dementia Has Mild Dementia Complicated by Anxiety/Mood disorder Does not have any acute confusion Does not have any acute confusion Other chronic medical conditions: Continue with/resume home meds as when able. H/O chronic diastolic heart failure (EF 60 to 65%, TTE 2024), euvolemic to dry Valvular heart disease (mild MR/TR) H/O CAD status post CABG/PVD/CVA A-fib on Eliquis H spam call yperlipidemia on statin rx Hypothyroidism, euthyroid as of today's TSH Hypercalcemia, possible primary hyperparathyroidism, elevated PTH on review of outpatient blood work, f/u endocrine as OP. Ca normalized. Anxiety/mood disorder, at baseline Past tobacco abuse PT OT eval Social service re: contact office of aging about patient readmission due to inability to care for self DVT prophylaxis. Eliquis-Eliquis remains on hold due to recent surgery,pacemaker insertion and also chest tube placement Full code Patient's brother Mr. Matt Boles, contact #[phone].- called multiple times without any reply Text document was generated using [employer] voice recognition software. It may contain grammatical or spelling errors. Kindly contact undersigned for clarification of any documentation item in question. Admission and Anticipated Discharge Date Admission Date: November 13, 2024 Subjective Patient was seen and examined in medical telemetry unit She has dementia and anxiety disorder noted to be very anxious this morning, with chest pressure shortness of breath and nausea Denies any abdominal pain, nausea but no vomiting, no fever and no chills and has been saturating normally on room air Reassured and she was given 10 mg of hydroxyzine 11/13/2024 The patient was seen and examined in medical telemetry unit She has been feeling her best today Noted to have another episode of sinus pause of 4 seconds Denies any significant symptoms 11/14/2024 The patient was seen and examined in medical telemetry unit She was very anxious to have the procedure but later on after explaining she was happy about it Tried to call her brother but again no response since last evening She seems to be understanding about the procedure and telling that she wants to have the procedure done to avoid any problem with her heart in future She has been otherwise stable without any symptoms this morning 11/15/2024 The patient was seen and examined in telemetry unit She is status post PPM placement yesterday and noted to have a small pneumothorax on the left side following the procedure Pneumothorax got worse overnight and required chest tube placement early in the morning today She has been feeling much better today has minimal pain in the chest tube insertion site but denies any other significant symptoms 11/16/2024 The patient was seen and examined in telemetry unit She has been feeling much better and complains of minimal pain at the chest tube site Denies any palpitation or any shortness of breath Repeat chest x-ray showed no pneumothorax 11/17/2024 The patient was seen and examined in telemetry unit She has been stable and does not have any more chest pain The chest tube is out yesterday did not show any more pneumothorax She denies any other significant symptoms 11/18/2024 The patient was seen and examined in telemetry unit She remains stable and does not have any chest pain and/or palpitation Denies any abdominal pain, nausea or vomiting She remains medically stable to be discharged Review of Systems Review of Systems: All systems reviewed and are unremarkable except as noted below Physical Exam Physical Exam: Sitting on a chair without any acute distress Constitutional: well developed, well nourished and + ill appearing Eyes: PERRL, conjunctivae normal, anicteric sclerae ENMT: external ear and nose normal, oropharynx normal Neck: trachea midline, no thyromegaly Respiratory: no respiratory distress Auscultation: lungs clear to auscultation bilaterally and + diminished lung sounds Cardiovascular: Rate/Rhythm: regular rate and regular rhythm; not tachycardic Heart Sounds: normal S1, normal S2 and + murmur Extremities: no edema Gastrointestinal (Abdomen): Inspection/Auscultation: normal bowel sounds; abdomen not distended Percussion/Palpation: abdomen soft; abdomen nontender Musculoskeletal: All systems reviewed and are unremarkable except as noted below Neurologic: normal touch/pain/proprioception and moves all extremities; no focal motor deficits and not confused Lymphatic: no cervical or axillary lymphadenopathy Results & Data Results & Data Vital Signs (Past 12 Hours) Vital Signs Temp Pulse Pulse Resp BP Pulse Ox O2 Del Method 11/18/24 11:23 36.5 C 68 18 113/74 95 Room Air 11/18/24 08:59 70 11/18/24 08:01 36.6 C 71 18 116/73 95 Room Air 11/18/24 02:29 36.3 C L 70 18 126/76 97 Room Air Medications Administered Current Inpatient Medications Acetaminophen (Acetaminophen 500 Mg Tab) 1,000 mg PO Q8H PRN PRN Reason: Mild-Mod Pain (Scale 1-6) Stop: 12/14/24 17:33 Last Admin: 11/17/24 20:52 Dose: 1,000 mg Amlodipine Besylate (Amlodipine Besylate 5 Mg Tab) 5 mg PO QAM [facility] Stop: 12/11/24 08:59 Last Admin: 11/18/24 08:47 Dose: 5 mg Apixaban (Apixaban 2.5 Mg Tab) 2.5 mg PO BID [facility] Stop: 12/10/24 22:29 Last Admin: 11/13/24 10:06 Dose: 2.5 mg Artificial Tears (Artificial Tears) 1 drops OPB QID PRN PRN Reason: Dryness Stop: 12/11/24 13:42 Buspirone HCl (Buspirone 15 Mg Tab) 15 mg PO BID [facility] Stop: 12/10/24 22:29 Last Admin: 11/18/24 08:47 Dose: 15 mg Clopidogrel Bisulfate (Clopidogrel Bisulfate 75 Mg Tab) [facility] [place] Stop: 12/11/24 08:59 Last Admin: 11/18/24 08:47 Dose: 75 mg Ferrous Sulfate (Ferrous Sulfate 325 Mg Tab) 325 mg PO DAILY [facility] Stop: 12/11/24 08:59 Last Admin: 11/18/24 08:47 Dose: 325 mg Hydromorphone HCl (Hydromorphone Inj 0.5 Mg/0.5 Ml Syr) 0.25 mg IV Q4H PRN PRN Reason: Moderate Pain (Scale 4, 5, 6) Stop: 11/29/24 03:25 Last Admin: 11/17/24 05:07 Dose: 0.25 mg Hydromorphone HCl (Hydromorphone Inj 0.5 Mg/0.5 Ml Syr) 0.5 mg IV Q4H PRN PRN Reason: Severe Pain (Scale 7, 8, 9,10) Stop: 11/29/24 03:25 Last Admin: 11/16/24 21:36 Dose: 0.5 mg Hydroxyzine HCl (Hydroxyzine Hcl 10 Mg Tab) 10 mg PO Q6H PRN PRN Reason: Anxiety/Agitation Stop: 12/12/24 07:47 Last Admin: 11/18/24 10:10 Dose: 10 mg Levothyroxine Sodium (Levothyroxine Sodium 75 Mcg Tablet) 75 mcg PO DAILYBB YAN Stop: 12/11/24 06:29 Last Admin: 11/18/24 06:26 Dose: 75 mcg Melatonin (Melatonin 3 Mg Tab) 12 mg PO HS PRN PRN Reason: insomnia Stop: 12/11/24 20:59 Last Admin: 11/17/24 20:52 Dose: 12 mg Metoprolol Succinate (Metoprolol Succ 25mg Ext Rel Tab) 25 mg PO QAM [facility] Stop: 12/15/24 08:59 Last Admin: 11/18/24 08:46 Dose: 25 mg Nystatin (Nystatin Powder 15gm Btl) 1 appln EXT BID [facility] Stop: 12/11/24 08:59 Last Admin: 11/18/24 08:48 Dose: 1 appln Ondansetron HCl (Ondansetron Inj 2 Mg/Ml 2 Ml Vial) 4 mg IV Q6H PRN PRN Reason: Nausea And Vomiting Stop: 12/12/24 10:52 Last Admin: 11/15/24 03:50 Dose: 4 mg Pantoprazole Sodium (Pantoprazole 40 Mg Tab) 40 mg PO AMHS YAN Stop: 12/11/24 08:59 Last Admin: 11/18/24 08:46 Dose: 40 mg Rosuvastatin Calcium (Rosuvastatin Calcium 10 Mg Tab) 10 mg PO HS [facility] Stop: 12/11/24 20:59 Last Admin: 11/17/24 20:52 Dose: 10 mg Trazodone HCl (Trazodone Hcl 50 Mg Tab) 50 mg PO HS YAN Stop: 12/10/24 22:24 Last Admin: 11/17/24 20:52 Dose: 50 mg
[2024-11-18 16:09] VITALS: PULSE 70
== END 2024-11-18 17:31 | disposition home health service (06) | DRG 243 ==
LOC: ED 18:28 → 2W 18:28 → SUATTDRO 21:31 → 2W 22:08 → 2S 11-14 17:51 → 1E 11-15 00:45 → 2S 11-15 02:22

== ENCOUNTER 2024-11-24 09:09 | Inpatient (IN) ==
[2024-11-24 09:47] LABS: Hematocrit (blood only) 36.4 % (37.0-47.0); Hemoglobin 11.9 g/dl (12.0-16.0); Immature Granulocytes # (auto) 0.02 K/uL (0.01-0.20); Immature Granulocytes % (auto) 0.3 %; Mean Corpuscular Hemoglobin 29.6 pg (25.0-34.0); Mean Corpuscular Volume 90.5 fL (80.0-100.0); Platelet Count 142 K/uL (130-400); RDW Standard Deviation 43.7 fL (36.4-46.3); Red Blood Count 4.02 M/uL (4.20-5.40); White Blood Count 6.35 K/ul (4.8-10.8)
--- NOTE | 2024-11-24 09:50 | XRay Report ---
XR chest 1V portable CLINICAL HISTORY: Dyspnea COMPARISON STUDY: 11/16/2024 FINDINGS: Stable CABG, pacemaker, and shoulder prostheses. Stable moderate hiatal hernia. Stable mode rate cardiomegaly without pulmonary vascular congestion. There is stable mild scarring or atelectasis at the left lung base. No new consolidation or pleural effusion. No pneumothorax. Stable old right r ib fractures. IMPRESSION: Stable exam. ACT 112: Negative or not required by law. Electronically signed by: Raoul Perry M.D. 11/24/2024 9:49 AM
--- NOTE | 2024-11-24 09:56 | Emergency Department Note ---
Impression & Plan BROUSSARD (dyspnea on exertion), SOB (shortness of breath), Elevated brain natriuretic peptide (BNP) level ED Provider Note NAME: DYLAN LEACH AGE: 86 SEX: F : 11/14/1938 ARRIVES VIA: Ambulance INFORMANT: [Patient][ems] ED PROVIDER(S): [Avel Santiago MD] CHIEF COMPLAINT: Shortness of breath HISTORY OF PRESENT ILLNESS: The patient is an 86-year-old female who states that she has daily dyspnea but today, doing her typical routine, she felt more short of breath than baseline. She had to stop to catch her breath. There is no chest pain. She has not had cough, fever or stuffy nose. She has no diagnosed heart or lung disease. EMS is concerned that she may be missing some of her daily medications. PMHx/PSHx/Social Hx: See Below PHYSICAL EXAM: GENERAL: Patient is in no acute distress. HEENT: No acute trauma, normocephalic atraumatic, mucous membranes moist, no nasal congestion. NECK: No stridor, no adenopathy, no meningismus, trachea is midline. LUNGS: There are some crackles on the left, no wheezing or respiratory distress. HEART: 3/6 systolic murmur, regular rate and rhythm. ABDOMEN: Soft, nontender, no peritonitis. EXTREMITIES: No cyanosis, full range of motion of all the joints without pain or difficulty. Mild bilateral pedal edema NEUROLOGIC: Oriented x 3, no acute motor or sensory deficits, no focal weakness. SKIN: No jaundice, no diaphoresis. DIFFERENTIAL DIAGNOSIS: Bronchitis or pneumonia, CHF, PE, viral illness, KS, among others. EMERGENCY DEPARTMENT PROCEDURES: MEDICAL DECISION MAKING: There is no leukocytosis. A very subtle anemia was seen. There is a normal platelet count. No bandemia. No coagulopathy. No renal failure or significant electrolyte abnormality. No concerning liver enzyme elevation. ECG showed a ventricular pacemaker, no ST elevation. Cardiac enzyme testing x 1 was not consistent with acute cardiac injury. Chest x-ray did not show heart failure, pneumonia or pneumothorax. BNP was elevated consistent with potential fluid overload. Urinalysis did not show findings of infection. COVID, influenza and RSV test were negative. The patient presents today with ongoing dyspnea with exertion. She has noticed things worsening especially in the last several weeks. Today, she was scared with the dyspnea and presents for evaluation. Patient was given IV Lasix, 40 mg. This was given to help with potential fluid overload. The patient does not feel safe with discharge. She was too dyspneic to function on her own at home today. She is worried about the escalation of symptoms in the last several weeks. The cause for her dyspnea is unclear but certainly may be related to fluid overload. Further workup/care is warranted. I did speak with the patient and case management, the on-call hospitalist was consulted. Prior/Outside records/notes reviewed: Today's EMS notes describing her presentation, transport to this hospital. ECG per my interpretation: Indication was shortness of breath. The ECG shows a ventricular pacer with a rate of 70. No obvious ST elevation, no PVCs but the QTc is 464. Continuous Cardiac Monitoring per my interpretation: An order was placed for continuous cardiac monitoring. The monitor shows a rate of 71 with ventricular pacing. Imaging/x-ray results per my interpretation: Chest x-ray does not show CHF or pneumonia. There is no pneumothorax. Chronic Medical/Social conditions affecting care: Advanced age. Care/Management discussed with: Case management, the on-call hospitalist. 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 Permanent atrial fibrillation Rash (Acute) Nonadherence to medication (Acute) SOB (shortness of breath) (Acute) Hypertension (Acute) Acute confusion (Acute) Chronic kidney disease stage 3 Unable to care for self Dementia Stroke-like symptoms Alzheimer's dementia with anxiety Hypertension (Acute) Chronic atrial fibrillation CAD (coronary artery disease) Anticoagulant long-term use Chronic heart failure with preserved ejection fraction (HFpEF) Hypothyroidism GERD (gastroesophageal reflux disease) (Chronic) Depression with anxiety (Acute) Insomnia (Acute) Medical History Moderate dementia with anxiety Depression Arthritis Ambulatory dysfunction Generalized anxiety disorder Arthritis of right shoulder region Syncope and collapse Urinary incontinence Primary osteoarthritis, right shoulder DJD of left shoulder Chronic osteoarthritis Greater trochanteric bursitis of right hip Acute on chronic heart failure with preserved ejection fraction (HFpEF) KIM (acute kidney injury) Chest pain, atypical Sinus pause Labile hypertension Paroxysmal A-fib Precordial chest pain Hypercalcemia Hyperparathyroidism Sepsis due to pneumonia Pneumonia Acute on chronic diastolic CHF (congestive heart failure) Hypomagnesemia Hypophosphatemia History of coronary artery disease Precordial chest pain SOB (shortness of breath) Weakness Elevated troponin Costochondritis Confusion Acute alteration in mental status Ascending aorta dilation SOB (shortness of breath) Hypertension Asymptomatic bradycardia Acute renal failure superimposed on stage 3 chronic kidney disease Anemia, chronic disease Intractable nausea Problems related to lack of adequate sleep Delirium due to another medical condition, acute, hyperactive Mild cognitive impairment Iron deficiency anemia Hiatal hernia with GERD and esophagitis Hypertension, uncontrolled Shortness of breath Acute UTI Chronic diastolic CHF (congestive heart failure) Breathlessness Atypical chest pain Acute on chronic heart failure with preserved ejection fraction BROUSSARD (dyspnea on exertion) Sleep-wake cycle disorder Mobitz type 1 second degree AV block (10/2023) Somatic dysfunction of sacroiliac joint History of blood transfusion 2012 2/2 GASTRIC ULCER History of gastric ulcer 2012 Spinal stenosis Gastric ulcer Atrial fibrillation with rapid ventricular response (11/2022) Fall Moderate mitral regurgitation Transient ischemic attack (TIA) ~2012>REASON FOR PLAVIX Osteoarthritis Chronic back pain Dyslipidemia Hypertension Surgical History 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 History of cardiac cath NO STENTS History of coronary artery bypass graft 1998 (1 VESSEL) S/P epidural steroid injection History of esophagogastroduodenoscopy (EGD) S/p reverse total shoulder arthroplasty RT/LEFT History of abdominoplasty PANNICULECTOMY History of colonoscopy History of arthroplasty of right hip History of arthroplasty of left hip History of hysterectomy with oophorectomy History of arthroplasty of left shoulder History of tonsillectomy and adenoidectomy H/O bilateral salpingo-oophorectomy with hyter Family History Father , age 74 Allergic reaction Mother , 80s CHF (congestive heart failure) Other No family history of adverse response to anesthesia Social History Smoking Status: Never smoker Second Hand Exposure: No; Do You Dip or Chew Tobacco: No; Tobacco Cessation Education Requested by Patient: No Hx Alcohol Use: No Hx Substance Use: No Preferred Language: French Communication Ability: Effective Visual Impairment: No Limitations Automatic Glove Former Required: No Beliefs That Will Affect Care: None marital status: Single Current Living Situation: Alone Current Living Situation Comment: Independent apartment at [facility] How many Children do You have: 0 Other Information That Helps Us Care for You: No Feels Safe at Home: Yes Safety Concerns: Feels Safe At This Time Assistive Devices: Glasses Allergies Allergies Allergy/AdvReac Type Severity Reaction Status Date / Time nitroglycerin AdvReac Severe "PROJECTILE Verified 11/10/24 19:53 VOMITTING" ergotamine AdvReac Intermediate vomiting Verified 11/10/24 19:53 Home Meds Home Medications Medication Instructions Recorded Confirmed calcitriol 0.25 mcg capsule 0.25 mcg PO 3XWK 07/16/24 11/24/24 pantoprazole 40 mg tablet,delayed 40 mg PO AMHS 07/16/24 11/24/24 release rosuvastatin 10 mg tablet 10 mg PO HS 07/16/24 11/24/24 acetaminophen 500 mg tablet 500 mg PO TID PRN Pain 08/21/24 11/24/24 clopidogrel 75 mg tablet 75 mg PO QAM 08/21/24 11/24/24 buspirone 15 mg tablet 15 mg PO BID 11/02/24 11/24/24 ferrous sulfate 325 mg (65 mg 325 mg PO DAILY 11/02/24 11/24/24 iron) tablet (FeroSul) gabapentin 100 mg capsule 100 mg PO BID 11/24/24 11/24/24 trazodone 100 mg tablet 100 mg PO HS 11/24/24 11/24/24 Previous Rx's Medication Instructions Recorded amlodipine 5 mg tablet (Norvasc) 5 mg PO QAM #30 tabs 05/21/24 apixaban 2.5 mg tablet (Eliquis) 2.5 mg PO BID #60 tabs 05/21/24 levothyroxine 75 mcg tablet 75 mcg PO DAILYBB #30 tabs 05/21/24 (Synthroid) melatonin 10 mg capsule 10 mg PO HS #30 caps 05/21/24 metoprolol succinate 25 mg 25 mg PO QAM #30 tabs 05/21/24 tablet,extended release 24 hr Results & Data (ED) Vital Signs Vital Signs - 24 hr 11/24/24 09:16 11/24/24 09:16 11/24/24 09:16 Temperature 36.8 C Temperature Source Oral Pulse Rate 70 Pulse Rate [Apical] Pulse Rhythm [Apical] Respiratory Rate 18 Respiratory Effort / Characteristics Non-Labored Spontaneous Non-Labored Spontaneous Respiratory Depth Normal Normal Respiratory Pattern Regular Blood Pressure 134/78 Blood Pressure [Right Arm] Blood Pressure Mean 96 Blood Pressure Mean [Right Arm] Blood Pressure Position Sitting Blood Pressure Position [Right Arm] Pulse Oximetry 96 96 Oxygen Delivery Method Room Air Room Air Room Air Sepsis Recent Fever Within 48 Hours No Sepsis New/Unexplained Change in Mental Status N/A Sepsis Action Taken by Nursing No Action Required 11/24/24 09:16 11/24/24 09:19 11/24/24 09:20 Temperature 36.8 C Temperature Source Oral Pulse Rate 70 Pulse Rate [Apical] 70 70 Pulse Rhythm [Apical] Regular Respiratory Rate 18 17 Respiratory Effort / Characteristics Non-Labored Spontaneous Non-Labored Spontaneous Respiratory Depth Normal Normal Respiratory Pattern Blood Pressure Blood Pressure [Right Arm] 134/78 134/78 Blood Pressure Mean Blood Pressure Mean [Right Arm] 96 96 Blood Pressure Position Blood Pressure Position [Right Arm] Semi-fowlers Pulse Oximetry 96 98 Oxygen Delivery Method Room Air Room Air Sepsis Recent Fever Within 48 Hours Sepsis New/Unexplained Change in Mental Status Sepsis Action Taken by Nursing 11/24/24 10:01 11/24/24 11:20 Temperature Temperature Source Pulse Rate 64 Pulse Rate [Apical] 75 Pulse Rhythm [Apical] Regular Respiratory Rate 17 19 Respiratory Effort / Characteristics Non-Labored Spontaneous Respiratory Depth Normal Respiratory Pattern Blood Pressure Blood Pressure [Right Arm] 177/110 H Blood Pressure Mean Blood Pressure Mean [Right Arm] 132 Blood Pressure Position Blood Pressure Position [Right Arm] Pulse Oximetry 97 97 Oxygen Delivery Method Room Air Room Air Sepsis Recent Fever Within 48 Hours Sepsis New/Unexplained Change in Mental Status Sepsis Action Taken by [facility] Medications Current Medication List: was personally reviewed by me Laboratory Data Attestation: I reviewed the patient's lab results. 11/24/24 09:27 11/24/24 09:27 Lab Results 11/24/24 11/24/24 11/24/24 Range/Units 09:27 09:39 09:42 WBC 6.35 (4.8-10.8) K/ul RBC 4.02 L (4.20-5.40) M/uL Hgb 11.9 L (12.0-16.0) g/dl Hct 36.4 L (37.0-47.0) % MCV 90.5 (80.0-100.0) fL MCH 29.6 (25.0-34.0) pg MCHC 32.7 (32.0-36.0) g/dL RDW Std Deviation 43.7 (36.4-46.3) fL RDW Coeff of Howie 13.2 (11.5-14.5) % Plt Count 142 (130-400) K/uL MPV 9.5 (9.4-12.4) fL Immature Gran % (Auto) 0.3 % Neut % (Auto) 55.3 % Lymph % (Auto) 29.0 % [place] % (Auto) 11.7 % Eos % (Auto) 3.1 % Baso % (Auto) 0.6 % Neut # (Auto) 3.51 (1.40-6.50) K/uL Lymph # (Auto) 1.84 (1.20-3.40) K/uL [place] # (Auto) 0.74 H (0.11-0.59) K/uL Eos # (Auto) 0.20 (0.00-0.50) K/uL Baso # (Auto) 0.04 (0.00-0.20) K/uL Immature Gran # (Auto) 0.02 (0.01-0.20) K/uL PT 11.8 (9.0-12.0) Seconds INR 1.1 (0.9-1.1) APTT 24 (21-31) Seconds PTT Ratio 0.9 Sodium 139 (136-145) mmol/L Potassium 3.9 (3.5-5.1) mmol/L Chloride 108 H (98-107) mmol/L Carbon Dioxide 26 (21-32) mmol/L Anion Gap 5 (3-11) BUN 13 (6-23) mg/dl Creatinine 1.07 (0.6-1.2) mg/dl Est Cr Clr Drug Dosing 33.3 ml/min eGFR 49.96 BUN/Creatinine Ratio 12.1 (10-20) Glucose 96 (70-99(Fasting)) mg/dl Calcium 10.2 (8.6-10.3) mg/dl Magnesium 1.8 (1.7-2.4) mg/dl Total Bilirubin 0.7 (0.2-1.0) mg/dl AST 14 (13-39) U/L ALT 8 (7-52) U/L Alkaline Phosphatase 53 (34-104) U/L Troponin I High Sens 12.8 (0-14) pg/ml B-Natriuretic Peptide 359 H (0-100) pg/ml Total Protein 6.7 (6.0-8.3) gm/dl Albumin 3.8 (3.4-5.0) gm/dl Globulin 2.9 (2.5-4.0) gm/dl Albumin/Globulin Ratio 1.3 (0.9-2) Urine Color Yellow Urine Appearance Clear (Clear) Urine pH 7.5 (4.5-7.5) Ur Specific Pool 1.004 (1.000-1.030) Urine Protein Negative (Negative) Urine Glucose (UA) Negative (Negative) Urine Ketones Negative (Negative) Urine Blood Negative (Negative) Urine Nitrite Negative (Negative) Urine Bilirubin Negative (Negative) Urine Urobilinogen Negative (Negative) Ur Leukocyte Esterase Trace H (Negative) Urine WBC (Auto) 0-5 (0-5) /hpf Urine RBC (Auto) 0-2 (0-2) /hpf U Hyaline Cast (Auto) 0-2 (0-2) /lpf U Epithel Cells (Auto) 0-2 (0-2) /hpf Urine Bacteria (Auto) None Seen (None Seen) Urine Comment SARS-CoV-2 (PCR) NEGATIVE (Negative) Influenza Type A (PCR) Negative (Neg) Influenza Type B (PCR) Negative (Neg) RSV (RT-PCR) Negative (Neg) Administered Medications Discontinued Medications Furosemide (Furosemide 40 Mg/4 Ml Vial) 40 mg IV ONE ONE Stop: 11/24/24 12:39 Last Admin: 11/24/24 14:15 Dose: 40 mg Documented By: ANT Ioversol (Optiray 320 125ml) 112 ml IV ONCE ONE Stop: 11/24/24 11:46 Last Admin: 11/24/24 11:45 Dose: 112 ml Documented By: RINKU Imaging Data Radiologist's Impression: Chest X-Ray 11/24/24 09:24 XR chest 1V portable CLINICAL HISTORY: Dyspnea COMPARISON STUDY: 11/16/2024 FINDINGS: Stable CABG, pacemaker, and shoulder prostheses. Stable moderate hiatal hernia. Stable moderate cardiomegaly without pulmonary vascular congestion. There is stable mild scarring or atelectasis at the left lung base. No new consolidation or pleural effusion. No pneumothorax. Stable old right rib fractures. IMPRESSION: Stable exam. ACT 112: Negative or not required by law. Electronically signed by: Raoul Perry M.D. 11/24/2024 9:49 AM Chest CTA 11/24/24 09:57 CT angio chest PE protocol CT DOSE: 599.67 mGy.cm HISTORY: 86 years-old Female with PE. Acute chest pain with shortness of breath TECHNIQUE: Multiple CTA images of the chest were obtained after the intravenous administration of 112 ml Optiray. Coronal and sagittal MIPS were obtained from the axial data set and were submitted for review. All measurements were obtained according to NASCET criteria. A dose lowering technique was utilized adhering to the principles of ALARA. COMPARISON: 05/18/2024, 12/01/2021. FINDINGS: CTA: Moderate cardiomegaly. Prior median sternotomy with CABG. Moderate to extensive [place] coronary artery calcifications. Ectasia of the ascending thoracic aorta measures 3.9 cm. No pulmonary emboli identified. Suboptimal evaluation of the segmental and subsegmental branches. CT CHEST: No dominant thyroid nodule is seen. No pathologically adenopathy by CT size criteria. There is no pneumothorax, pleural effusion or focal airspace consolidation. Unremarkable thyroid. No lymphadenopathy. Mild left hemidiaphragm elevation with trace pleural effusions. Unchanged subpleural nodular focus of the right lower lobe on image 109 measures 1.6 cm. This is unchanged from 202 and benign. Mild dependent subsegmental bibasilar atelectasis. No overt pulmonary edema or airspace consolidation typical for pneumonia. There are a few scattered bilateral solid pulmonary nodules which are unchanged from 2022 measuring up to 4 mm which are also benign. Central airways are patent. Mid to distal esophageal wall thickening with moderate sized hiatal hernia. Calcified granulomata of the spleen. Unremarkable soft tissues. Bilateral shoulder arthroplasties. Prominent levoscoliosis of the upper lumbar spine. Chronic posterior right-sided rib fractures. IMPRESSION: 1. No pulmonary emboli identified. 2. Trace pleural effusions with mild bibasilar atelectasis. 3. Stable solid pulmonary nodules are unchanged dating back to 2021 suggestive of benign etiology. 4. Mid to distal esophageal wall thickening with moderate sized hiatal hernia. ACT 112: Negative or not required by law. The above report was generated using voice recognition software. It may contain grammatical, syntax or spelling errors. Electronically signed by: Phil Davis M.D. 11/24/2024 12:14 PM Discharge Plan Visit Data Chief Complaint: Shortness of Breath/Dyspnea Stated Complaint: SOB ED Provider: Avel Santiago Discharge Problem: BROUSSARD (dyspnea on exertion), SOB (shortness of breath), Elevated brain natriuretic peptide (BNP) level Patient Disposition: Admitted As Inpatient Condition: Fair Discharge Instructions Interventions: ED Discharge Assessment Last Done: 11/24/24 15:52
[2024-11-24 10:06] LABS: Alanine Aminotransferase 8.0 U/L (7-52); Albumin Globulin Ratio 1.3 (0.9-2); Albumin Level 3.8 gm/dl (3.4-5.0); Alkaline Phosphatase 53.0 U/L (34-104); Anion Gap 5.0 (3-11); Bilirubin,Total 0.7 mg/dl (0.2-1.0); Blood Urea Nitrogen 13.0 mg/dl (6-23); Calcium 10.2 mg/dl (8.6-10.3); Carbon Dioxide 26.0 mmol/L (21-32); Chloride 108.0 mmol/L (98-107); Creatinine Clr Calc Pharmacy 33.3 ml/min; Globulin 2.9 gm/dl (2.5-4.0); Glucose 96.0 mg/dl (70-99(Fasting)); Magnesium 1.8 mg/dl (1.7-2.4); Potassium 3.9 mmol/L (3.5-5.1); Sodium 139.0 mmol/L (136-145); Total Protein 6.7 gm/dl (6.0-8.3)
[2024-11-24 10:15] LABS: INR 1.1 (0.9-1.1); Partial Thromboplastin Time 24 Seconds (21-31); Prothrombin Time 11.8 Seconds (9.0-12.0)
[2024-11-24 10:16] LABS: Appearance Urine Clear (Clear); Bacteria Urine Automated None Seen (None Seen); Cast Urine Automated 0-2 /lpf (0-2); Epithelial Cell Urine Auto 0-2 /hpf (0-2); Glucose Urine UA Negative (Negative); RBC Urine Automated 0-2 /hpf (0-2); WBC Urine Automated 0-5 /hpf (0-5)
[2024-11-24 10:48] LABS: Influenza A virus by PCR Negative (Neg); Influenza B virus by PCR Negative (Neg); SARS CoV2 RNA(COVID-19) Ceph NEGATIVE (Negative)
[2024-11-24] MEDS: OPTIRAY 320 125ml IV ONE (11:45)
--- NOTE | 2024-11-24 12:15 | CT Scan Report ---
CT angio chest PE protocol CT DOSE: 599.67 mGy.cm HISTORY: 86 years-old Female with PE. Acute chest pain with shortness of breath TECHNIQUE: Multiple CTA images of the chest were obtained after the intravenous administration of 112 ml Optiray. Coronal and sagittal MIPS were obtained from the axial data set and were submitted for review. All measurements were obtained according to NASCET criteria. A dose lowering technique was u tilized adhering to the principles of ALARA. COMPARISON: 05/18/2024, 12/01/2021. FINDINGS: CTA: Moderate cardiomegaly. Prior median sternotomy with CABG. Moderate to extensive [place] coronary arter y calcifications. Ectasia of the ascending thoracic aorta measures 3.9 cm. No pulmonary emboli identi fied. Suboptimal evaluation of the segmental and subsegmental branches. CT CHEST: No dominant thyroid nodule is seen. No pathologically adenopathy by CT size criteria. There is no pn eumothorax, pleural effusion or focal airspace consolidation. Unremarkable thyroid. No lymphadenopath y. Mild left hemidiaphragm elevation with trace pleural effusions. Unchanged subpleural nodular focus of the right lower lobe on image 109 measures 1.6 cm. This is unchanged from 202 and benign. Mild d ependent subsegmental bibasilar atelectasis. No overt pulmonary edema or airspace consolidation typic al for pneumonia. There are a few scattered bilateral solid pulmonary nodules which are unchanged fro m 2021 measuring up to 4 mm which are also benign. Central airways are patent. Mid to distal esophageal wall thickening with moderate sized hiatal hernia. Calcified granulomata of the spleen. Unremarkable soft tissues. Bilateral shoulder arthroplasties. Prominent levoscoliosis of the upper lumbar spine. Chronic posterior right-sided rib fractures. IMPRESSION: 1. No pulmonary emboli identified. 2. Trace pleural effusions with mild bibasilar atelectasis. 3. Stable solid pulmonary nodules are unchanged dating back to 2021 suggestive of benign etiology. 4. Mid to distal esophageal wall thickening with moderate sized hiatal hernia. ACT 112: Negative or not required by law. The above report was generated using voice recognition software. It may contain grammatical, syntax o r spelling errors. Electronically signed by: Phil Davis M.D. 11/24/2024 12:14 PM
--- NOTE | 2024-11-24 12:54 | History & Physical Report ---
Date of Service November 24, 2024 Assessment & Plan (1) SOB (shortness of breath): (2) Tachy-ramez syndrome: (3) Permanent atrial fibrillation: (4) Hypertension: (5) Chronic heart failure with preserved ejection fraction (HFpEF): (6) Chronic kidney disease stage 3: Plan: Patient is 86 year old female with PMH CAD s/p CABG, permanent a-fib, anticoagulated on Eliquis, Tachybrady syndrome s/p pacemaker, chronic diastolic CHF, hypothyroidism, history of hypercalcemia, hiatal hernia, thoracic aortic ectasia, HTN, mild-moderate aortic stenosis, GERD, depression, anxiety, persistent insomnia, mixed incontinence urge and stress, history of gastric ulcer, cognitive impairment presented to ER with c/o intermittent SOB. #SOB Negative influenza, RSV, SARS-CoV-2 PCR. BNP: 359. No leukocytosis, no hypoxia CXR: Stable moderate cardiomegaly without pulmonary vascular congestion. There is stable mild scarring or atelectasis at the left lung base. No new consolidation or pleural effusion. No pneumothorax. CTA Chest: No pulmonary emboli identified. Trace pleural effusions with mild bibasilar atelectasis. Stable solid pulmonary nodules are unchanged dating back to 2021 suggestive of benign etiology. Mid to distal esophageal wall thickening with moderate sized hiatal hernia. DDx: acute on chronic HFpEF, arrhythmia, reflux/hiatal hernia, anxiety, Currently pt denies any SOB and denies CP Monitor on telemetry Pacemaker interrogation In ER given IV lasix 40mg IV Will continue to monitor I&O's daily weight and monitor response. Will hold on any further diuresis at this time as pt appears fairly euvolemic at this time. CBC, BMP in am #Chronic HFpEF #Mild-Moderate Aortic Stenosis 11/14/2024 echo: EF: 55-60%, left atrium moderately dilated, right atrium moderately dilated, mild aortic regurgitation, mild pulmonic valvular regurgi tation, moderate mitral regurgitation, moderate-severe tricuspid regurgitation, mild-moderate aortic stenosis In ER BNP: 359 Plan as above #Tachy-ramez syndrome S/P pacemaker on 11/14/2024, and had subsequent left-sided pneumothorax requiring chest tube. Pacemaker interrogation #Permanent atrial fibrillation Continue Eliquis, metoprolol succinate #History of CAD s/p CABG Continue Plavix, rosuvastatin and Eliquis #CKD stage IIIb Cr: 1.07. Baseline 0.9-1.2 Avoid nephrotoxic agents as able #Cognitive Decline Likely underlying dementia Ongoing concern about patients ability to live at apartment alone and manage medications [facility] [employer] involved Per outpatient chart review patient not eligible for [facility] services #HTN Continue amlodipine, metoprolol #Chronic anemia Hgb: 11.9. Baseline 11's-12's #Hypothyroidism On Synthroid #GERD #Hiatal Hernia Continue Protonix #HLD Continue rosuvastatin #Depression #Anxiety Continue home buspirone #Insomnia On trazodone, melatonin DVT Prophylaxis On Eliquis Admit telemetry Full Code as per discussion with pt Follows with Dr Varghese for routine care Pt was seen and care coordinated with Dr May. See addendum I spent a total of 70 minutes reviewing notes, outpatient records, labs, medication, coordinating, documenting and providing care for this patient excluding time spent in the performance of separately billed services and excluding time spent by another provider/QHP. History of Present Illness Chief Complaint: SOB Primary Care Provider: Gilbert Calloway MD Patient is 86 year old female with PMH CAD s/p CABG, permanent a-fib, anticoagulated on Eliquis, Tachybrady syndrome s/p pacemaker, chronic diastolic CHF, hypothyroidism, history of hypercalcemia, hiatal hernia, thoracic aortic ectasia, HTN, mild-moderate aortic stenosis, GERD, depression, anxiety, persistent insomnia, mixed incontinence urge and stress, history of gastric ulcer, cognitive impairment presented to ER with c/o SOB. Per inpatient chart review patient with recurrent hospitalizations this year for reported shortness of breath and chest pain. Per inpatient chart review most recent hospitalization 11/10/24-11/18/2024 for shortness of breath that was thought possible from uncontrolled hypertension, secondary to cognitive impairment and missing home medications and possible anxiety and was also found to have tachybrady syndrome S/P pacemaker on 11/14/2024, and had subsequent left-sided pneumothorax requiring chest tube. Patient reports still has intermittent SOB. She denies any chest pain. She reports past 3 nights hasn't slept. She states was up walking around this morning at 4am when she had increased SOB. States SOB seemed to improve when she sat down but states then would start again. She reports SOB has been intermit tent all morning and denies any associated CP with this. She states on the days she does sleep she has been waking up in the mornings feeling very anxious and this has been ongoing for past week. She states has been taking her pulse at home and reports in 60-70s mostly but does notice goes to 92 when she is feeling anxious and at times when she is feeling SOB. Denies palpitation sensation. Denies dizziness or syncope. She states she has forgotten to take her medications for past 4 days but thinks she took her morning medications today. She said its unlike her to forget her medications however per chart review seems there have been ongoing concerns with patient's ability to manage her home medications. She feels her legs are swollen for past 6 weeks and denies any changes. Patient states she doesn't think she has eaten for 4 days. Denies fever/chills, diaphoresis, N/V/D/C, COLBERT, dizziness, syncope, vision changes, neck pain, CP, orthopnea, palpitations, cough, sore throat, rhinorrhea, abdominal pain, paresthesias, extremity weakness, rashes, dysuria, hematuria. Per inpatient and outpatient chart review there are concerns with patient's cognitive status and inability to manage her home medications. Epic Phone encounter From 11/20/2024 reporting that patient confused about medications and RN called her pharmacy to speak to pharmacist and it is reported while she was on the phone that patient was calling again. It is reported patient has an aide Sunday through Sunday 10 AM to 3 PM. Per aide patient had several different pill packs and some had medications and some did not and patient was unable to find most recent delivered pill packs. Patient states that she hasn't had an aide since her last hospitalization. Per phone encounter RN reported left a message for office of aging regarding concerns about patient. Allergies Allergy/AdvReac Type Severity Reaction Status Date / Time nitroglycerin AdvReac Severe "PROJECTILE Verified 11/10/24 19:53 VOMITTING" ergotamine AdvReac Intermediate vomiting Verified 11/10/24 19:53 Home Medications Medication Instructions Recorded Confirmed Type amlodipine 5 mg tablet (Norvasc) 5 mg PO QAM #30 tabs 05/21/24 11/24/24 Rx apixaban 2.5 mg tablet (Eliquis) 2.5 mg PO BID #60 tabs 05/21/24 11/24/24 Rx levothyroxine 75 mcg tablet 75 mcg PO DAILYBB #30 tabs 05/21/24 11/24/24 Rx (Synthroid) melatonin 10 mg capsule 10 mg PO HS #30 caps 05/21/24 11/24/24 Rx metoprolol succinate 25 mg 25 mg PO QAM #30 tabs 05/21/24 11/24/24 Rx tablet,extended release 24 hr calcitriol 0.25 mcg capsule 0.25 mcg PO 3XWK 07/16/24 11/24/24 History pantoprazole 40 mg tablet,delayed 40 mg PO AMHS 07/16/24 11/24/24 History release rosuvastatin 10 mg tablet 10 mg PO HS 07/16/24 11/24/24 History acetaminophen 500 mg tablet 500 mg PO TID PRN Pain 08/21/24 11/24/24 History clopidogrel 75 mg tablet 75 mg PO QAM 08/21/24 11/24/24 History buspirone 15 mg tablet 15 mg PO BID 11/02/24 11/24/24 History ferrous sulfate 325 mg (65 mg 325 mg PO DAILY 11/02/24 11/24/24 History iron) tablet (FeroSul) gabapentin 100 mg capsule 100 mg PO BID 11/24/24 11/24/24 History trazodone 100 mg tablet 100 mg PO HS 11/24/24 11/24/24 History Past Med/Surg History Problem List (Updated 11/24/24 @ 17:31 by Avel Santiago MD) Elevated brain natriuretic peptide (BNP) level (Acute) SOB (shortness of breath) (Acute) BROUSSARD (dyspnea on exertion) (Acute) Chest pain Cardiac pacemaker in situ Pneumothorax, left Atrial fibrillation with slow ventricular response Diastolic congestive heart failure Aortic stenosis ASCVD (arteriosclerotic cardiovascular disease) Tachy-ramez syndrome Permanent atrial fibrillation Rash (Acute) Nonadherence to medication (Acute) SOB (shortness of breath) (Acute) Hypertension (Acute) Acute confusion (Acute) Chronic kidney disease stage 3 Unable to care for self Dementia Stroke-like symptoms Alzheimer's dementia with anxiety Hypertension (Acute) Chronic atrial fibrillation CAD (coronary artery disease) Anticoagulant long-term use Chronic heart failure with preserved ejection fraction (HFpEF) Hypothyroidism GERD (gastroesophageal reflux disease) (Chronic) Depression with anxiety (Acute) Insomnia (Acute) Medical History Moderate dementia with anxiety Depression Arthritis Ambulatory dysfunction Generalized anxiety disorder Arthritis of right shoulder region Syncope and collapse Urinary incontinence Primary osteoarthritis, right shoulder DJD of left shoulder Chronic osteoarthritis Greater trochanteric bursitis of right hip Acute on chronic heart failure with preserved ejection fraction (HFpEF) KIM (acute kidney injury) Chest pain, atypical Sinus pause Labile hypertension Paroxysmal A-fib Precordial chest pain Hypercalcemia Hyperparathyroidism Sepsis due to pneumonia Pneumonia Acute on chronic diastolic CHF (congestive heart failure) Hypomagnesemia Hypophosphatemia History of coronary artery disease Precordial chest pain SOB (shortness of breath) Weakness Elevated troponin Costochondritis Confusion Acute alteration in mental status Ascending aorta dilation SOB (shortness of breath) Hypertension Asymptomatic bradycardia Acute renal failure superimposed on stage 3 chronic kidney disease Anemia, chronic disease Intractable nausea Problems related to lack of adequate sleep Delirium due to another medical condition, acute, hyperactive Mild cognitive impairment Iron deficiency anemia Hiatal hernia with GERD and esophagitis Hypertension, uncontrolled Shortness of breath Acute UTI Chronic diastolic CHF (congestive heart failure) Breathlessness Atypical chest pain Acute on chronic heart failure with preserved ejection fraction BROUSSARD (dyspnea on exertion) Sleep-wake cycle disorder Mobitz type 1 second degree AV block (10/2023) Somatic dysfunction of sacroiliac joint History of blood transfusion 2012 2/2 GASTRIC ULCER History of gastric ulcer 2012 Spinal stenosis Gastric ulcer Atrial fibrillation with rapid ventricular response (11/2022) Fall Moderate mitral regurgitation Transient ischemic attack (TIA) ~2013>REASON FOR PLAVIX Osteoarthritis Chronic back pain Dyslipidemia Hypertension Surgical History 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 History of cardiac cath NO STENTS History of coronary artery bypass graft 1998 (1 VESSEL) S/P epidural steroid injection History of esophagogastroduodenoscopy (EGD) S/p reverse total shoulder arthroplasty RT/LEFT History of abdominoplasty PANNICULECTOMY History of colonoscopy History of arthroplasty of right hip History of arthroplasty of left hip History of hysterectomy with oophorectomy History of arthroplasty of left shoulder History of tonsillectomy and adenoidectomy H/O bilateral salpingo-oophorectomy with hyter Family History Father , age 74 Allergic reaction Mother , 80s CHF (congestive heart failure) Other No family history of adverse response to anesthesia Social History Smoking Status: Never smoker Second Hand Exposure: No; Do You Dip or Chew Tobacco: No; Tobacco Cessation Education Requested by Patient: No Hx Alcohol Use: No Hx Substance Use: No Preferred Language: Lithuanian Communication Ability: Effective Visual Impairment: No Limitations Intelligence Applications Required: No Beliefs That Will Affect Care: None marital status: Single Current Living Situation: Alone Current Living Situation Comment: Independent apartment at [facility] How many Children do You have: 0 Other Information That Helps Us Care for You: No Feels Safe at Home: Yes Safety Concerns: Feels Safe At This Time Assistive Devices: Glasses Review of Systems Review of Systems: All systems reviewed & are unremarkable except as noted in HPI & below Physical Exam Physical Exam: General: no distress, WDWN Head: normocephalic, atraumatic Eyes: conjunctiva non-injected, anicteric ENT: normal inspection external ears, nose, mucous membranes moist Neck: supple, trachea midline, non-tender Lungs: clear, no respiratory distress, no wheezing/rhonchi/rales CV: RRR, no JVD, no pitting pretibial edema Abd: normal BS, soft, non-tender Ext: no cyanosis, no calf tenderness Neuro: Alert, oriented to person, place, forgetful with date. Does seem forgetful throughout conversation, no focal deficits noted, normal affect Skin: warm, dry Results & Data Results & Data Vital Signs (Past 12 Hours) Vital Signs Temp Pulse Pulse Resp BP BP Pulse Ox 11/24/24 11:20 75 19 177/110 H 97 11/24/24 10:01 64 17 97 11/24/24 09:20 70 17 134/78 98 11/24/24 09:19 70 11/24/24 09:16 36.8 C 70 18 134/78 96 11/24/24 09:16 96 11/24/24 09:16 11/24/24 09:16 36.8 C 70 18 134/78 96 O2 Del Method 11/24/24 11:20 Room Air 11/24/24 10:01 Room Air 11/24/24 09:20 Room Air 11/24/24 09:19 11/24/24 09:16 Room Air 11/24/24 09:16 Room Air 11/24/24 09:16 Room Air 11/24/24 09:16 Room Air Laboratory Results Short CBC 11/24/24 Range/Units 09:27 WBC 6.35 (4.8-10.8) K/ul Hgb 11.9 L (12.0-16.0) g/dl Hct 36.4 L (37.0-47.0) % Plt Count 142 (130-400) K/uL BMP 11/24/24 09:27 Sodium 139 Potassium 3.9 Chloride 108 H Carbon Dioxide 26 BUN 13 Creatinine 1.07 Glucose 96 Calcium 10.2 Liver Function 11/24/24 Range/Units 09:27 Total Bilirubin 0.7 (0.2-1.0) mg/dl AST 14 (13-39) U/L ALT 8 (7-52) U/L Alkaline Phosphatase 53 (34-104) U/L Albumin 3.8 (3.4-5.0) gm/dl Urine 11/24/24 Range/Units 09:39 Urine Color Yellow Urine Appearance Clear (Clear) Urine pH 7.5 (4.5-7.5) Ur Specific Powers 1.004 (1.000-1.030) Urine Protein Negative (Negative) Urine Glucose (UA) Negative (Negative) Diagnostic Findings Chest X-Ray 11/24/24 09:24 XR chest 1V portable CLINICAL HISTORY: Dyspnea COMPARISON STUDY: 11/16/2024 FINDINGS: Stable CABG, pacemaker, and shoulder prostheses. Stable moderate hiatal hernia. Stable moderate cardiomegaly without pulmonary vascular congestion. There is stable mild scarring or atelectasis at the left lung base. No new consolidation or pleural effusion. No pneumothorax. Stable old right rib fractures. IMPRESSION: Stable exam. ACT 112: Negative or not required by law. Electronically signed by: Raoul Perry M.D. 11/24/2024 9:49 AM Chest CTA 11/24/24 09:57 CT angio chest PE protocol CT DOSE: 599.67 mGy.cm HISTORY: 86 years-old Female with PE. Acute chest pain with shortness of breath TECHNIQUE: Multiple CTA images of the chest were obtained after the intravenous administration of 112 ml Optiray. Coronal and sagittal MIPS were obtained from the axial data set and were submitted for review. All measurements were obtained according to NASCET criteria. A dose lowering technique was utilized adhering to the principles of ALARA. COMPARISON: 05/18/2024, 12/01/2021. FINDINGS: CTA: Moderate cardiomegaly. Prior median sternotomy with CABG. Moderate to extensive lower [place] coronary artery calcifications. Ectasia of the ascending thoracic aorta measures 3.9 cm. No pulmonary emboli identified. Suboptimal evaluation of the segmental and subsegmental branches. CT CHEST: No dominant thyroid nodule is seen. No pathologically adenopathy by CT size criteria. There is no pneumothorax, pleural effusion or focal airspace consolidation. Unremarkable thyroid. No lymphadenopathy. Mild left hemidiaphragm elevation with trace pleural effusions. Unchanged subpleural nodular focus of the right lower lobe on image 109 measures 1.6 cm. This is unchanged from 202 and benign. Mild dependent subsegmental bibasilar atelectasis. No overt pulmonary edema or airspace consolidation typical for pneumonia. There are a few scattered bilateral solid pulmonary nodules which are unchanged from 202 measuring up to 4 mm which are also benign. Central airways are patent. Mid to distal esophageal wall thickening with moderate sized hiatal hernia. Kraig cified granulomata of the spleen. Unremarkable soft tissues. Bilateral shoulder arthroplasties. Prominent levoscoliosis of the upper lumbar spine. Chronic posterior right-sided rib fractures. IMPRESSION: 1. No pulmonary emboli identified. 2. Trace pleural effusions with mild bibasilar atelectasis. 3. Stable solid pulmonary nodules are unchanged dating back to 2021 suggestive of benign etiology. 4. Mid to distal esophageal wall thickening with moderate sized hiatal hernia. ACT 112: Negative or not required by law. The above report was generated using voice recognition software. It may contain grammatical, syntax or spelling errors. Electronically signed by: Phil Davis M.D. 11/24/2024 12:14 PM ECG Additional Comments: paced rhythm per my interpretation (4) Hypertension Hypertension type: unspecified Qualified Code(s): I10 - Essential (primary) hypertension
--- NOTE | 2024-11-24 13:23 | Communication Note ---
Date of Service: November 24, 2024 Attending Addendum: Case reviewed with the advanced practitioner. I have personally performed a history and physical examination on the patient. I have reviewed the advanced practitioner's documentation on the date of service referenced in note, and I agree with, and take responsibility for the plan of care. please refer to her notes for full details patient seen and examined, records reviewed by myself as well on exam, patient seen resting in bed, comfortable, in room 235 states she feels better overall after void multiple times today shortness of breath resolved denies chest pain, cough, fever/chills no other symptoms VS noted and reviewed oriented x2, not in distress, speaks in sentences with no effort nor accessory muscle use normal rate, regular rhythm, no murmurs mild rales R base, clear on the left non distended, soft, nontender no bipedal edema, erythema, warmth no neuro deficits all labs, imaging noted and reviewed ASSESSMENT AND PLAN> MILD ACUTE CHF EXACERBATION, DIASTOLIC, VALVULAR CHF TACHYBRADY SYNDROME, S/P PACEMAKER PLACEMENT Moderate Mitral Regurgitation, Moderate to Severe Tricuspid Regurgitation, Mild to moderate Valvular Aortic Stenosis on room air Lasix 40mg IV given at the ER has a recent echo 10/2024 pacemaker interrogation Concrete Paving Machine Operator consulted other diagnoses and plan of care as per advanced practitioner's notes I spent a total of 40 minutes coordinating, documenting, and providing care for this patient, excluding time spent in the performance of separately billed services or time spent by another provider/QHP. Giuseppe May MD
[2024-11-24] MEDS: FUROSEMIDE 40 MG/4 ML VIAL IV ONE (14:15)
--- NOTE | 2024-11-24 15:13 | Electrocardiogram Report ---
Test Reason : Blood Pressure : */* mmHG Vent. Rate : 70 BPM Atrial Rate : 394 BPM P-R Int : * ms QRS Dur : 126 ms QT Int : 430 ms P-R-T Axes : * -37 16 degrees QTcB Int : 464 ms Ventricular-paced rhythm Abnormal ECG When compared with ECG of 16-Nov-2024 23:13, No significant change was found Confirmed by Delmar Askew ([id number]) on 11/24/2024 3:12:53 PM Referred By: REFERRED SELF Confirmed By: Delmar Askew
[2024-11-24] MEDS ORDERED: ONDANSETRON INJ 2 MG/ML 2 ML VIAL IV PRN (15:58)
[2024-11-24] MEDS ORDERED: POLYETHYLENE (MIRALAX) 17 GM PACK PO PRN (15:58)
[2024-11-24] MEDS: APIXABAN 2.5 MG TAB PO SCH (21:01)
[2024-11-24] MEDS: ROSUVASTATIN CALCIUM 10 MG TAB PO SCH (21:01)
[2024-11-24] MEDS: busPIRone 15 MG TAB PO SCH (21:01)
[2024-11-24] MEDS: GABAPENTIN 100 MG CAP PO SCH (21:02)
[2024-11-24] MEDS: MELATONIN 3 MG TAB PO SCH (22:01)
[2024-11-25] MEDS: LEVOTHYROXINE SODIUM 75 MCG TABLET PO SCH (06:39)
[2024-11-25 07:33] LABS: Hematocrit (blood only) 37.1 % (37.0-47.0); Hemoglobin 12.7 g/dl (12.0-16.0); Mean Corpuscular Hemoglobin 30.8 pg (25.0-34.0); Mean Corpuscular Volume 90.0 fL (80.0-100.0); Platelet Count 147 K/uL (130-400); RDW Standard Deviation 43.1 fL (36.4-46.3); Red Blood Count 4.12 M/uL (4.20-5.40); White Blood Count 5.76 K/ul (4.8-10.8)
[2024-11-25 07:54] LABS: Anion Gap 9.0 (3-11); Blood Urea Nitrogen 16.0 mg/dl (6-23); Calcium 10.3 mg/dl (8.6-10.3); Carbon Dioxide 26.0 mmol/L (21-32); Chloride 105.0 mmol/L (98-107); Creatinine Clr Calc Pharmacy 25.4 ml/min; Glucose 89.0 mg/dl (70-99(Fasting)); Magnesium 1.9 mg/dl (1.7-2.4); Potassium 3.7 mmol/L (3.5-5.1); Sodium 140.0 mmol/L (136-145)
[2024-11-25] MEDS: METOPROLOL SUCC 25MG EXT REL TAB PO SCH ×2 (08:02→21:00)
[2024-11-25] MEDS: FERROUS SULFATE 325 MG TAB PO SCH (08:02)
[2024-11-25] MEDS: CLOPIDOGREL BISULFATE 75 MG TAB PO SCH (08:02)
--- NOTE | 2024-11-25 08:40 | Cardiology Consultation ---
Date of Consultation November 25, 2024 Assessment & Plan (1) SOB (shortness of breath): (2) Chronic heart failure with preserved ejection fraction (HFpEF): (3) Permanent atrial fibrillation: (4) Tachy-ramez syndrome: (5) Presence of permanent cardiac pacemaker: Plan Assessment: 86 year old female with known history of HFpEF admitted for concerns of acute heart failure exacerbation. Patient with recent increased sodium intake, but reported medication compliance. Cardiology consulted for further assessment and recommendations. Plan: 1. SOB 2. HFpEF -patient with no acute EKG changes, no chest pain or angina equivalent -Troponins negative -BNP with mild elevation -Patient received one time dose of IV lasix 40mg with good output -Recommend strict I&O and daily weights during course pf hospitalization. -Close monitoring of renal function and serum electrolytes. Goal serum K > 4.0 and Serum mag > 2.0 -Patient appears euvolemic on exam. Reports that her shortness of breath has resolved. -BP controlled. Continue amlodipine 5mg PO QD, Metoprolol succinate 25mg PO QD -Continue plavix and crestor as per current home medications. 3. Permanent Atrial fibrillation 4. Tachy-ramez syndrome 5. Presence of a PPM -Device interrogation demonstrates normal function, no events or alarms. pacing 84%. -Continue metoprolol succinate for rate control -Continue Eliquis as per current regimen for oral AC therapy. No further cardiac work up is needed at this time. patient will need OP cardiology follow up within 4-6 weeks. It does not appear that she has ever seen our clinic. Will need set up. Case has been discussed with Dr. Jean-Baptiste. Further recommendations regarding plan of care as per his assessment. I spent a total of 50 minutes on the date of service in preparation, delivery, documentation of the care provided to the patient excluding any time spent in the performance of separately billed services. [facility] Cardiology [facility] Supervising Physician Co-Signing Physician Notes Patient seen and examined. Past medical history, surgical history, social history and family history have been reviewed. The medical record and all the above studies have been reviewed. Case DW FABI including management. Acute on chronic HFpEF - improved Permanent atrial fibrillation Tachy-ramez syndrome s/p PPM correct and f/u electrolytes f/u renal function continue anticoagulation GDMT for HFpEF keeping systolic BP between 100-140 mmHg DC Norvasc increase metoprolol xl to 25mg po bid start Entresto keep patient euvolemic 1.5 L / 24 hr fluid restriction strict I&Os salt restriction counseling Stable from cardiac standpoint for discharge in AM if remains stable follow up in cardiology office History of Present Illness Reason for Consultation: "MIld CHF exacerbation" Requesting Physician: Addis hospitalist Attending Physician: Jose J Pemberton DO History of Present Illness HPI: Patient is a 86 year old medically complex female well known to our practice with recent recurrent admissions that presented to the ER with acute concerns of "intermittent shortness of breath". PMHx as outlined below. Patient's most recent hospitalization was at [facility] 11/10-11/18/2024 for A-fib with Tachy-ramez syndrome and CHF requiring a pacemaker implant on 11/14/[address] Sheryl Johns. Primary care team has requested consult for CHF. Upon seeing patient in examination this morning she is sitting up in bed feeling well. Denies any chest pain, pressure, palpitations, shortness of breath, PND, pre- syncope, syncope or edema. She states that she lives alone independently, but made comment that if she wants she has the option to "call down to the kitchen". REview of chart reports that she resides at [facility]. Patient reports compliance on all of her medications, but does endorse some increased salt intake. She received Meals on wheels 3x per week, sometimes orders from the kitchen "but its salty" and otherwise does not making quick simple meals such as canned soup which she knows has increased sodium. Past Medical history: ASCVD. Status post CABG x 1 in 1998, receiving a SANDOVAL to the LAD Chronic diastolic congestive heart failure Permanent atrial fibrillation Tachy-ramez syndrome s/p Implant of a single chamber rate responsive permanent pacemaker 11/14/2024 Aortic stenosis Hypertension Dyslipidemia Chronic kidney disease Hypothyroidism GERD, reflux esophagitis, history of peptic ulcer disease Dementia Anxiety/depression Spinal stenosis Cerebral meningioma Chart history of cerebellar infarct Migraine headaches Bilateral shoulder replacements Bilateral hip replacements Bilateral salpingo-oophorectomy Prior liposuction Bilateral cataract surgery Tonsillectomy as a child Cognitive impairment EKG V-paced Rate 70bpm. QTC 464ms Pacemaker interrogation Morillo. Normal device function, no alarms or events. V- paced 84% Troponin negative BNP 359 Cr. 1.40 Chest xray negative with no evidence of pulmonary vascular congestion CTA Chest: IMPRESSION: 1. No pulmonary emboli identified. 2. Trace pleural effusions with mild bibasilar atelectasis. 3. Stable solid pulmonary nodules are unchanged dating back to 2021 suggestive of benign etiology. 4. Mid to distal esophageal wall thickening with moderate sized hiatal hernia. Review of telemetry shows Paced rhythm, no acute events overnight. Allergies Allergy/AdvReac Type Severity Reaction Status Date / Time nitroglycerin AdvReac Severe "PROJECTILE Verified 11/10/24 19:53 VOMITTING" ergotamine AdvReac Intermediate vomiting Verified 11/10/24 19:53 Home Medications Medication Instructions Recorded Confirmed Type amlodipine 5 mg tablet (Norvasc) 5 mg PO QAM #30 tabs 05/21/24 11/24/24 Rx apixaban 2.5 mg tablet (Eliquis) 2.5 mg PO BID #60 tabs 05/21/24 11/24/24 Rx levothyroxine 75 mcg tablet 75 mcg PO DAILYBB #30 tabs 05/21/24 11/24/24 Rx (Synthroid) melatonin 10 mg capsule 10 mg PO HS #30 caps 05/21/24 11/24/24 Rx metoprolol succinate 25 mg 25 mg PO QAM #30 tabs 05/21/24 11/24/24 Rx tablet,extended release 24 hr calcitriol 0.25 mcg capsule 0.25 mcg PO 3XWK 07/16/24 11/24/24 History pantoprazole 40 mg tablet,delayed 40 mg PO AMHS 07/16/24 11/24/24 History release rosuvastatin 10 mg tablet 10 mg PO HS 07/16/24 11/24/24 History acetaminophen 500 mg tablet 500 mg PO TID PRN Pain 08/21/24 11/24/24 History clopidogrel 75 mg tablet 75 mg PO QAM 08/21/24 11/24/24 History buspirone 15 mg tablet 15 mg PO BID 11/02/24 11/24/24 History ferrous sulfate 325 mg (65 mg 325 mg PO DAILY 11/02/24 11/24/24 History iron) tablet (FeroSul) gabapentin 100 mg capsule 100 mg PO BID 11/24/24 11/24/24 History trazodone 100 mg tablet 100 mg PO HS 11/24/24 11/24/24 History Patient History Medical History Moderate dementia with anxiety Depression Arthritis Ambulatory dysfunction Generalized anxiety disorder Arthritis of right shoulder region Syncope and collapse Urinary incontinence Primary osteoarthritis, right shoulder DJD of left shoulder Chronic osteoarthritis Greater trochanteric bursitis of right hip Acute on chronic heart failure with preserved ejection fraction (HFpEF) KIM (acute kidney injury) Chest pain, atypical Sinus pause Labile hypertension Paroxysmal A-fib Precordial chest pain Hypercalcemia Hyperparathyroidism Sepsis due to pneumonia Pneumonia Acute on chronic diastolic CHF (congestive heart failure) Hypomagnesemia Hypophosphatemia History of coronary artery disease Precordial chest pain SOB (shortness of breath) Weakness Elevated troponin Costochondritis Confusion Acute alteration in mental status Ascending aorta dilation SOB (shortness of breath) Hypertension Asymptomatic bradycardia Acute renal failure superimposed on stage 3 chronic kidney disease Anemia, chronic disease Intractable nausea Problems related to lack of adequate sleep Delirium due to another medical condition, acute, hyperactive Mild cognitive impairment Iron deficiency anemia Hiatal hernia with GERD and esophagitis Hypertension, uncontrolled Shortness of breath Acute UTI Chronic diastolic CHF (congestive heart failure) Breathlessness Atypical chest pain Acute on chronic heart failure with preserved ejection fraction BROUSSARD (dyspnea on exertion) Sleep-wake cycle disorder Mobitz type 1 second degree AV block (10/2023) Somatic dysfunction of sacroiliac joint History of blood transfusion 2012 2/2 GASTRIC ULCER History of gastric ulcer 2012 Spinal stenosis Gastric ulcer Atrial fibrillation with rapid ventricular response (11/2022) Fall Moderate mitral regurgitation Transient ischemic attack (TIA) ~2013>REASON FOR PLAVIX Osteoarthritis Chronic back pain Dyslipidemia Hypertension Surgical History 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 History of cardiac cath NO STENTS History of coronary artery bypass graft 1998 (1 VESSEL) S/P epidural steroid injection History of esophagogastroduodenoscopy (EGD) S/p reverse total shoulder arthroplasty RT/LEFT History of abdominoplasty PANNICULECTOMY History of colonoscopy History of arthroplasty of right hip History of arthroplasty of left hip History of hysterectomy with oophorectomy History of arthroplasty of left shoulder History of tonsillectomy and adenoidectomy H/O bilateral salpingo-oophorectomy with hyter Family History Father , age 74 Allergic reaction Mother , 80s CHF (congestive heart failure) Other No family history of adverse response to anesthesia Social History Smoking Status: Never smoker Second Hand Exposure: No; Do You Dip or Chew Tobacco: No; Tobacco Cessation Education Requested by Patient: No Hx Alcohol Use: No Hx Substance Use: No Preferred Language: Macedonian Communication Ability: Effective Visual Impairment: No Limitations Fondant Machine Operator Required: No Beliefs That Will Affect Care: None marital status: Single Current Living Situation: Alone Current Living Situation Comment: Independent apartment at [facility] How many Children do You have: 0 Other Information That Helps Us Care for You: No Feels Safe at Home: Yes Safety Concerns: Feels Safe At This Time Assistive Devices: Walker Review of Systems Review of Systems: All systems reviewed & are unremarkable except as noted in HPI & below Physical Exam Constitutional: well developed and well nourished; no acute distress and not ill appearing Neck: normal visual inspection; + trachea not midline Respiratory: normal respiratory effort, lungs clear to auscultation Cardiovascular: Rate/Rhythm: regular rate and regular rhythm (paced) Heart Sounds: normal S1 and normal S2 Vessels: dorsalis pedis pulses present; no JVD Extremities: no edema Skin: no rashes, warm and dry Psychiatric: Orientation: alert, oriented to person and oriented to place Results & Data Vital Signs (Past 12 Hours) Vital Signs Temp Pulse Pulse Resp BP Pulse Ox O2 Del Method 11/25/24 08:22 36.4 C L 71 18 122/69 96 Room Air 11/25/24 08:17 70 11/25/24 08:12 Room Air 11/25/24 07:38 36.6 C 69 18 131/78 97 Room Air 11/25/24 04:13 36.7 C 68 17 102/67 96 Room Air 11/24/24 23:44 36.7 C 69 17 99/64 L 97 Room Air Laboratory Results CBC 11/25/24 Range/Units 06:17 WBC 5.76 (4.8-10.8) K/ul RBC 4.12 L (4.20-5.40) M/uL Hgb 12.7 (12.0-16.0) g/dl Hct 37.1 (37.0-47.0) % Plt Count 147 (130-400) K/uL Comprehensive Metabolic Panel 11/25/24 Range/Units 06:17 Sodium 140 (136-145) mmol/L Potassium 3.7 (3.5-5.1) mmol/L Chloride 105 (98-107) mmol/L Carbon Dioxide 26 (21-32) mmol/L BUN 16 (6-23) mg/dl Creatinine 1.40 H D (0.6-1.2) mg/dl Glucose 89 (70-99(Fasting)) mg/dl Calcium 10.3 (8.6-10.3) mg/dl Intake and Output 11/24/24 11/25/24 11/25/24 22:59 06:59 14:59 Output Total 200 / 500 300 / 500 Balance -200 / -500 -300 / -500 Output: Urine 200 / 500 300 / 500 Other: Weight 66.4 kg 66 kg Weight Measurement Method Built in [facility] Diagnostic Findings Echocardiogram 11/14/24 LV systolic function is normal LVEF 55-60% Left atrium is moderatly dilated Mild AI Mild pulmonic regurgitation Moderate MR Moderate to severe TR mild to moderate --AoV2 Max 201.9cm/sec PG Care Time/CCT Total # of Minutes Spent Total Time Spent with Patient: Total time spent is greater than 50% in coordination of care (as documented) at patient's floor/unit and/or counseling patient: [place] [address] IN/OBS CONSULT LVL 5,80M Patient Type New Diagnoses SOB (shortness of breath) R06.02 Chronic heart failure with preserved ejection fraction (HFpEF) I50.32 Permanent atrial fibrillation I48.21 Tachy-ramez syndrome I49.5 Presence of permanent cardiac pacemaker Z95.0 Time Spent (min) 50
--- NOTE | 2024-11-25 10:40 | Hospitalist Progress Note ---
Date of Service November 25, 2024 Assessment & Plan (1) SOB (shortness of breath): (2) Tachy-ramez syndrome: (3) Permanent atrial fibrillation: (4) Hypertension: (5) Chronic heart failure with preserved ejection fraction (HFpEF): (6) Chronic kidney disease stage 3: Plan: Patient is 86 year old female with PMH CAD s/p CABG, permanent a-fib, anticoagulated on Eliquis, Tachybrady syndrome s/p pacemaker, chronic diastolic CHF, hypothyroidism, history of hypercalcemia, hiatal hernia, thoracic aortic ectasia, HTN, mild-moderate aortic stenosis, GERD, depression, anxiety, persistent insomnia, mixed incontinence urge and stress, history of gastric ulcer, cognitive impairment presented to ER with c/o intermittent SOB. #SOB -Negative influenza, RSV, SARS-CoV-2 PCR. BNP: 359. No leukocytosis, no hypoxia -CXR: Stable moderate cardiomegaly without pulmonary vascular congestion. There is stable mild scarring or atelectasis at the left lung base. No new consolidation or pleural effusion. No pneumothorax. -CTA Chest: No pulmonary emboli identified. Trace pleural effusions with mild bibasilar atelectasis. -Clinically there does not appear to be any acute issue causing her SOB -Her SOB is likely multifactorial due to her many cardiac issues, decondit ioning, anxiety Plan -Observe off further IV diuresis as she does not look overloaded -Dept of aging has been involved as patient lives alone, appreciate CM assistance regarding dispo #KIM -Likely from IV lasix yesterday -Hold further lasix -Encourage PO intake -Recheck BMP in AM #Chronic HFpEF #Mild-Moderate Aortic Stenosis 11/14/2024 echo: EF: 55-60%, left atrium moderately dilated, right atrium moderately dilated, mild aortic regurgitation, mild pulmonic valvular regurgitation, moderate mitral regurgitation, moderate-severe tricuspid regurgitation, mild-moderate aortic stenosis BNp at baseline and does not look overloaded Not on lasix at home Hold lasix -Cardio was consulted on admission and saw patient before author could discuss with them. appreciate their input #Tachy-ramez syndrome S/P pacemaker on 11/14/2024, and had subsequent left-sided pneumothorax requiring chest tube. Pacemaker interrogation #Permanent atrial fibrillation Continue Eliquis, metoprolol succinate #History of CAD s/p CABG Continue Plavix, rosuvastatin and Eliquis #CKD stage IIIb Cr: 1.07. Baseline 0.9-1.2 Avoid nephrotoxic agents as able #Cognitive Decline There was concern for dementia with patient She is currently AOx4 to author on 11/25 #HTN Continue amlodipine, metoprolol #Chronic anemia Hgb: 11.9. Baseline 11's-12's #Hypothyroidism On Synthroid #GERD #Hiatal Hernia Continue Protonix #HLD Continue rosuvastatin #Depression #Anxiety Continue home buspirone #Insomnia On trazodone, melatonin DVT Prophylaxis On Eliquis Admit telemetry Full Code as per discussion with pt Follows with Dr Varghese for routine care I spent a total of 38 minutes coordinating, documenting, and providing care for this patient excluding time spent in the performance of separately billed services. This included personally reviewing all current laboratories and imaging studies, medical reconciliation, outpatient chart review and discussion with specialists Admission and Anticipated Discharge Date Admission Date: November 24, 2024 Subjective Feeling well today and denies any complaints. Patient denies F/C, CP, palpitations, SOB, dyspnea, abd pain, N/V/D Physical Exam Physical Exam: Vitals and labs reviewed General: frail, elderly appearing NAD HEENT: EOMI, PERRLA Neck: Supple Cardiac: RRR no rubs gallops. systolic murmur Lungs: CTA no rhonchi wheezing or rales Abd: S NT ND BS positive : no mora MSK: Full ROM. No obvious deformities Ext: No Edema cyanosis Skin: Warm, Dry Neuro: AOx3 No focal deficits. Psych: Normal Mood Results & Data Results & Data Vital Signs (Past 12 Hours) Vital Signs Temp Pulse Pulse Resp BP Pulse Ox O2 Del Method 11/25/24 09:58 70 11/25/24 08:22 36.4 C L 71 18 122/69 96 Room Air 11/25/24 08:17 70 11/25/24 08:12 Room Air 11/25/24 07:38 36.6 C 69 18 131/78 97 Room Air 11/25/24 04:13 36.7 C 68 17 102/67 96 Room Air 11/24/24 23:44 36.7 C 69 17 99/64 L 97 Room Air Laboratory Results Abnormal lab results 11/25/24 Range/Units 06:17 RBC 4.12 L (4.20-5.40) M/uL Creatinine 1.40 H D (0.6-1.2) mg/dl (4) Hypertension Hypertension type: unspecified Qualified Code(s): I10 - Essential (primary) hypertension
--- NOTE | 2024-11-25 10:54 | Electrocardiogram Report ---
Test Reason : Blood Pressure : */* mmHG Vent. Rate : 70 BPM Atrial Rate : 77 BPM P-R Int : * ms QRS Dur : 124 ms QT Int : 440 ms P-R-T Axes : * -41 24 degrees QTcB Int : 475 ms Ventricular-paced rhythm Abnormal ECG When compared with ECG of 24-Nov-2024 09:16, No significant change was found Confirmed by Delmar Askew ([id number]) on 11/25/2024 10:53:44 AM Referred By: REFERRED SELF Confirmed By: Delmar Askew
[2024-11-25] MEDS: VALSARTAN/SACUBITRIL 26/24MG TAB PO SCH (20:54)
[2024-11-25] MEDS: busPIRone 15 MG TAB PO SCH (20:54)
--- NOTE | 2024-11-25 21:05 | Communication Note ---
Date of Service: November 25, 2024 Patient SBP noted to be 90s, heart rate 70s as per RN. Patient comfortable. Serum creatinine 1.4 today from 1.07 yesterday AP Hypotension ARF Hold Entresto Monitor creatinine response to gentle IVF
[2024-11-25] MEDS: ALBUMIN 25% 25 GM/100 ML VIAL IV ONE (21:56)
[2024-11-25 22:02] LABS: Anion Gap 8.0 (3-11); Blood Urea Nitrogen 25.0 mg/dl (6-23); Calcium 9.6 mg/dl (8.6-10.3); Carbon Dioxide 25.0 mmol/L (21-32); Chloride 102.0 mmol/L (98-107); Creatinine Clr Calc Pharmacy 20.6 ml/min; Glucose 122.0 mg/dl (70-99(Fasting)); Potassium 4.0 mmol/L (3.5-5.1); Sodium 135.0 mmol/L (136-145)
[2024-11-25] MEDS: METOPROLOL TARTRATE 25 MG TAB PO STA (22:59)
[2024-11-25] MEDS: MAGNESIUM SULFATE / D5W 1 GM/100 ML BAG IV ONE (23:10)
[2024-11-26 07:22] LABS: Anion Gap 10.0 (3-11); Calcium 10.1 mg/dl (8.6-10.3); Carbon Dioxide 23.0 mmol/L (21-32); Chloride 105.0 mmol/L (98-107); Potassium 4.4 mmol/L (3.5-5.1); Sodium 138.0 mmol/L (136-145)
[2024-11-26 07:28] LABS: Blood Urea Nitrogen 24.0 mg/dl (6-23); Creatinine Clr Calc Pharmacy 22.1 ml/min; Glucose 90.0 mg/dl (70-99(Fasting))
[2024-11-26] MEDS: CALCITRIOL 0.25 MCG CAPSULE PO SCH (09:25)
[2024-11-26] MEDS: SODIUM CHLORIDE 0.9% 500 ML IV ONE (09:28)
[2024-11-26] MEDS: SODIUM CHLORIDE 0.9% 500 ML IV SCH (10:37)
--- NOTE | 2024-11-26 11:37 | Hospitalist Progress Note ---
Date of Service November 26, 2024 Assessment & Plan (1) SOB (shortness of breath): (2) Tachy-ramez syndrome: (3) Permanent atrial fibrillation: (4) Hypertension: (5) Chronic heart failure with preserved ejection fraction (HFpEF): (6) Chronic kidney disease stage 3: Plan: Patient is 86 year old female with PMH CAD s/p CABG, permanent a-fib, anticoagulated on Eliquis, Tachybrady syndrome s/p pacemaker, chronic diastolic CHF, hypothyroidism, history of hypercalcemia, hiatal hernia, thoracic aortic ectasia, HTN, mild-moderate aortic stenosis, GERD, depression, anxiety, persistent insomnia, mixed incontinence urge and stress, history of gastric ulcer, cognitive impairment presented to ER with c/o intermittent SOB. #SOB -Negative influenza, RSV, SARS-CoV-2 PCR. BNP: 359. No leukocytosis, no hypoxia -CXR: Stable moderate cardiomegaly without pulmonary vascular congestion. There is stable mild scarring or atelectasis at the left lung base. No new consolidation or pleural effusion. No pneumothorax. -CTA Chest: No pulmonary emboli identified. Trace pleural effusions with mild bibasilar atelectasis. -Clinically there does not appear to be any acute issue causing her SOB -Her SOB is likely multifactorial due to her many cardiac issues, decondit ioning, anxiety Plan Continue to monitor for recurrence of shortness of breath Monitor oxygen saturation #KIM Creatinine up trended from baseline two 1.7 from 1.07 on admission Likely due to hypotensive episode Will discontinue Entresto #Acute on Chronic HFpEF resolved with iv lasix #Mild-Moderate Aortic Stenosis 11/14/2024 echo: EF: 55-60%, left atrium moderately dilated, right atrium moderately dilated, mild aortic regurgitation, mild pulmonic valvular regurgitation, moderate mitral regurgitation, moderate-severe tricuspid regurgitation, mild-moderate aortic stenosis BNp at baseline and does not look overloaded Cardiology was consulted and patient was started on metoprolol, Entresto. Amlodipine was discontinued. However, patient's blood pressure dropped down to SBP of 90s. Entresto was discontinued. Will continue metoprolol for now. #Tachy-ramez syndrome S/P pacemaker on 11/14/2024, and had subsequent left-sided pneumothorax requiring chest tube. Pacemaker interrogation #Permanent atrial fibrillation Continue Eliquis, metoprolol succinate #History of CAD s/p CABG Continue Plavix, rosuvastatin and Eliquis #HTN Continue metoprolol #Chronic anemia Hgb: 11.9. Baseline 11's-12's #Hypothyroidism On Synthroid-continue #GERD #Hiatal Hernia Continue Protonix #HLD Continue rosuvastatin #Depression #Anxiety Continue home buspirone #Insomnia On trazodone, melatonin DVT Prophylaxis On Eliquis Time spent evaluating patient, direct bedside care, chart review, placing orders, interpretation of diagnostic studies, discussion with consultants, patient, and family members, as well as other required patient management activities is 50 minutes Please note the above document was generated using voice recognition software. It may contain grammatical, syntax or spelling errors. Any formal questions or concerns about the content, text or information contained within the body of this dictation should be directly addressed to the provider for clarification Admission and Anticipated Discharge Date Admission Date: November 24, 2024 Subjective Patient seen and examined at bedside. Overnight she had hypotension after getting started on Entresto. Blood pressure on the lower side today; received IV fluid bolus. She denies dizziness, chest pain, shortness of breath at present time. Review of Systems Review of Systems: All systems reviewed & are unremarkable except as noted in Subjective Physical Exam Physical Exam: Constitutional: WD/WN, vitals as above, NAD, sitting up in bed, pleasant, conversing easily Respiratory: normal respiratory effort, lungs clear to auscultation, no wheeze, rales, rhonchi. Normal insp/exp effort, no accessory muscle use Cardiovascular: RRR, no murmur, no edema Vessels: no JVD or carotid bruit Chest: normal inspection of chest Abdomen: normal bowel sounds, soft, nontender, no hepatosplenomegaly Musculoskeletal: no cyanosis or clubbing, extremities motor strength 5/5 Skin: no rashes, warm and dry normal turgor Neurologic: PERRL, EOMI, accommodation nl, no face palsy, no dysarthria CN's II- XI intact bilaterally and moves all extremities Psychiatric: A+Ox3, euthymic affect Results & Data Results & Data Vital Signs (Past 12 Hours) Vital Signs Temp Pulse Resp BP BP Pulse Ox O2 Del Method 11/26/24 10:29 89/60 L 78/56 L 11/26/24 10:25 36.5 C 70 16 95/66 L 96 Room Air 11/26/24 09:03 80/52 L 86/57 L 11/26/24 07:30 36.6 C 70 16 99/65 L 96 Room Air 11/26/24 03:22 36.6 C 72 18 95/61 L 93 Room Air 11/26/24 00:04 36.7 C 84 20 97/60 L 94 Room Air (4) Hypertension Hypertension type: unspecified Qualified Code(s): I10 - Essential (primary) hypertension
--- NOTE | 2024-11-26 15:22 | Cardiology Progress Note ---
Date of Service November 26, 2024 Assessment & Plan (1) SOB (shortness of breath): (2) Chronic heart failure with preserved ejection fraction (HFpEF): (3) Permanent atrial fibrillation: (4) Tachy-ramez syndrome: (5) Presence of permanent cardiac pacemaker: Plan Assessment: 86 year old female with known history of HFpEF admitted for concerns of acute heart failure exacerbation. Patient with recent increased sodium intake, but reported medication compliance. Cardiology consulted for further assessment and recommendations. KIM c/w pre-renal azotemia Acute on chronic HFpEF - improved Permanent atrial fibrillation Tachy-ramez syndrome s/p PPM increase hydration including PO and IVF for now correct and f/u electrolytes f/u renal function continue anticoagulation GDMT for HFpEF keeping systolic BP between 100-140 mmHg off Norvasc metoprolol xl to 25mg as per parameters keeping systolic BP greater than 100 mmHg start Entresto after patient is euvolemic and as per parameters keeping systolic BP greater than 100 mmHg keep patient euvolemic and avoid hypovolemia for patient to be able to tolerate GDMT avoid aggressive diuresis and hypovolemia strict I&Os salt restriction Admission and Anticipated Discharge Date Admission Date: November 24, 2024 Subjective Patient on exam is lying in bed in NAD; no c/o cp, sob, palpitations, dizziness; patient continues to be hypotensive after diuresis on admission Review of Systems Review of Systems: pleasantly confused Physical Exam Constitutional: no acute distress Neck: normal visual inspection Respiratory: normal respiratory effort, lungs clear to auscultation Cardiovascular: Heart Sounds: normal S1 and normal S2 Extremities: no edema Psychiatric: Orientation: alert Results & Data Vital Signs (Past 12 Hours) Vital Signs Vital Signs Temp 36.5 C 11/26/24 10:25 Pulse 70 11/26/24 10:25 Resp 16 11/26/24 10:25 BP 78/56 L 11/26/24 10:29 Pulse Ox 96 11/26/24 10:25 O2 Del Method Room Air 11/26/24 10:25 Intake & Output 11/25/24 11/26/24 11/26/24 18:59 06:59 18:59 Intake Total 700 / 700 1240 / 1240 Balance 700 / 700 1240 / 1240 Weight 66.5 kg Intake: IV 200 / 200 1000 / 1000 Albumin 25% 25 gm In 100 ml @ 100 / 100 50 mls/hr IV ONE ONE Rx#: [id number] Magnesium Sulfate / D5w 1 gm In 100 / 100 100 ml @ 50 mls/hr IV ONE ONE Rx#:[id number] Sodium Chloride 0.9% 500 ml @ 500 / 500 999 mls/hr IV .Q31M ONE Rx#: [id number] Sodium Chloride 0.9% 500 ml @ 500 / 500 125 mls/hr IV .Q4H YAN Rx#: [id number] Oral 500 / 500 240 / 240 Other: # Unmeasured Voids 1 Weight Measurement Method Standing Scale Temp Pulse Resp BP BP Pulse Ox O2 Del Method 11/26/24 10:29 89/60 L 78/56 L 11/26/24 10: 36.5 C 70 16 95/66 L 96 Room Air 11/26/24 09:03 80/52 L 86/57 L 11/26/24 07:30 36.6 C 70 16 99/65 L 96 Room Air 11/26/24 03:22 36.6 C 72 18 95/61 L 93 Room Air Laboratory Results Laboratory Results WBC 5.76 K/ul (4.8-10.8) 11/25/24 06:17 RBC 4.12 M/uL (4.20-5.40) L 11/25/24 06:17 Hgb 12.7 g/dl (12.0-16.0) 11/25/24 06:17 Hct 37.1 % (37.0-47.0) 11/25/24 06:17 MCV 90.0 fL (80.0-100.0) 11/25/24 06:17 MCH 30.8 pg (25.0-34.0) 11/25/24 06:17 MCHC 34.2 g/dL (32.0-36.0) 11/25/24 06:17 RDW Std Deviation 43.1 fL (36.4-46.3) 11/25/24 06:17 RDW Coeff of Howie 13.1 % (11.5-14.5) 11/25/24 06:17 Plt Count 147 K/uL (130-400) 11/25/24 06:17 MPV 9.9 fL (9.4-12.4) 11/25/24 06:17 Immature Gran % (Auto) 0.3 % 11/24/24 09:27 Neut % (Auto) 55.3 % 11/24/24 09: Lymph % (Auto) 29.0 % 11/24/24 09:27 Harmon % (Auto) 11.7 % 11/24/24 09: Eos % (Auto) 3.1 % 11/24/24 09: Baso % (Auto) 0.6 % 11/24/24 09: Neut # (Auto) 3.51 K/uL (1.40-6.50) 11/24/24 09: Lymph # (Auto) 1.84 K/uL (1.20-3.40) 11/24/24 09: Harmon # (Auto) 0.74 K/uL (0.11-0.59) H 11/24/24 09: Eos # (Auto) 0.20 K/uL (0.00-0.50) 11/24/24 09: Baso # (Auto) 0.04 K/uL (0.00-0.20) 11/24/24 09:27 Immature Gran # (Auto) 0.02 K/uL (0.01-0.20) 11/24/24 09:27 PT 11.8 Seconds (9.0-12.0) 11/24/24 09: INR 1.1 (0.9-1.1) 11/24/24 09:27 APTT 24 Seconds (21-31) 11/24/24 09: PTT Ratio 0.9 11/24/24 09:27 Sodium 138 mmol/L (136-145) 11/26/24 05:48 Potassium 4.4 mmol/L (3.5-5.1) 11/26/24 05:48 Chloride 105 mmol/L (98-107) 11/26/24 05:48 Carbon Dioxide 23 mmol/L (21-32) 11/26/24 05:48 Anion Gap 10 (3-11) 11/26/24 05:48 BUN 24 mg/dl (6-23) H 11/26/24 05:48 Creatinine 1.61 mg/dl (0.6-1.2) H 11/26/24 05:48 Est Cr Clr Drug Dosing 22.1 ml/min 11/26/24 05:48 eGFR 30.60 11/26/24 05:48 BUN/Creatinine Ratio 14.9 (10-20) 11/26/24 05:48 Glucose 90 mg/dl (70-99(Fasting)) 11/26/24 05:48 Lactate 0.8 mmol/L (0.4-2.0) 11/25/24 21:31 Calcium 10.1 mg/dl (8.6-10.3) 11/26/24 05:48 Magnesium 1.9 mg/dl (1.7-2.4) 11/25/24 06:17 Total Bilirubin 0.7 mg/dl (0.2-1.0) 11/24/24 09:27 AST 14 U/L (13-39) 11/24/24 09:27 ALT 8 U/L (7-52) 11/24/24 09:27 Alkaline Phosphatase 53 U/L (34-104) 11/24/24 09:27 Troponin I High Sens 12.8 pg/ml (0-14) 11/24/24 09:27 B-Natriuretic Peptide 359 pg/ml (0-100) H 11/24/24 09:27 Total Protein 6.7 gm/dl (6.0-8.3) 11/24/24 09:27 Albumin 3.8 gm/dl (3.4-5.0) 11/24/24 09:27 Globulin 2.9 gm/dl (2.5-4.0) 11/24/24 09:27 Albumin/Globulin Ratio 1.3 (0.9-2) 11/24/24 09:27 Urine Color Yellow 11/24/24 09:39 Urine Appearance Clear (Clear) 11/24/24 09:39 Urine pH 7.5 (4.5-7.5) 11/24/24 09:39 Ur Specific [place] 1.004 (1.000-1.030) 11/24/24 09:39 Urine Protein Negative (Negative) 11/24/24 09:39 Urine Glucose (UA) Negative (Negative) 11/24/24 09:39 Urine Ketones Negative (Negative) 11/24/24 09:39 Urine Blood Negative (Negative) 11/24/24 09:39 Urine Nitrite Negative (Negative) 11/24/24 09:39 Urine Bilirubin Negative (Negative) 11/24/24 09:39 Urine Urobilinogen Negative (Negative) 11/24/24 09:39 Ur Leukocyte Esterase Trace (Negative) H 11/24/24 09:39 Urine WBC (Auto) 0-5 /hpf (0-5) 11/24/24 09:39 Urine RBC (Auto) 0-2 /hpf (0-2) 11/24/24 09:39 U Hyaline Cast (Auto) 0-2 /lpf (0-2) 11/24/24 09:39 U Epithel Cells (Auto) 0-2 /hpf (0-2) 11/24/24 09:39 Urine Bacteria (Auto) None Seen (None Seen) 11/24/24 09:39 Urine Comment 11/24/24 09:39 SARS-CoV-2 (PCR) NEGATIVE (Negative) 11/24/24 09:42 Influenza Type A (PCR) Negative (Neg) 11/24/24 09:42 Influenza Type B (PCR) Negative (Neg) 11/24/24 09:42 RSV (RT-PCR) Negative (Neg) 11/24/24 09:42 Impressions Chest X-Ray 11/24/24 09:24 XR chest 1V portable CLINICAL HISTORY: Dyspnea COMPARISON STUDY: 11/16/2024 FINDINGS: Stable CABG, pacemaker, and shoulder prostheses. Stable moderate hiatal hernia. Stable moderate cardiomegaly without pulmonary vascular congestion. There is stable mild scarring or atelectasis at the left lung base. No new consolidation or pleural effusion. No pneumothorax. Stable old right rib fractures. IMPRESSION: Stable exam. ACT 112: Negative or not required by law. Electronically signed by: Raoul Perry M.D. 11/24/2024 9:49 AM Chest CTA 11/24/24 09:57 CT angio chest PE protocol CT DOSE: 599.67 mGy.cm HISTORY: 86 years-old Female with PE. Acute chest pain with shortness of breath TECHNIQUE: Multiple CTA images of the chest were obtained after the intravenous administration of 112 ml Optiray. Coronal and sagittal MIPS were obtained from the axial data set and were submitted for review. All measurements were obtained according to NASCET criteria. A dose lowering technique was utilized adhering to the principles of ALARA. COMPARISON: 05/18/2024, 12/01/2021. FINDINGS: CTA: Moderate cardiomegaly. Prior median sternotomy with CABG. Moderate to extensive [place] coronary artery calcifications. Ectasia of the ascending thoracic aorta measures 3.9 cm. No pulmonary emboli identified. Suboptimal evaluation of the segmental and subsegmental branches. CT CHEST: No dominant thyroid nodule is seen. No pathologically adenopathy by CT size criteria. There is no pneumothorax, pleural effusion or focal airspace consolidation. Unremarkable thyroid. No lymphadenopathy. Mild left hemidiaphragm elevation with trace pleural effusions. Unchanged subpleural nodular focus of the right lower lobe on image 109 measures 1.6 cm. This is unchanged from 202 and benign. Mild dependent subsegmental bibasilar atelectasis. No overt pulmonary edema or airspace consolidation typical for pneumonia. There are a few scattered bilateral solid pulmonary nodules which are unchanged from 2022 measuring up to 4 mm which are also benign. Central airways are patent. Mid to distal esophageal wall thickening with moderate sized hiatal hernia. Calcified granulomata of the spleen. Unremarkable soft tissues. Bilateral shoulder arthroplasties. Prominent levoscoliosis of the upper lumbar spine. Chronic posterior right-sided rib fractures. IMPRESSION: 1. No pulmonary emboli identified. 2. Trace pleural effusions with mild bibasilar atelectasis. 3. Stable solid pulmonary nodules are unchanged dating back to 2021 suggestive of benign etiology. 4. Mid to distal esophageal wall thickening with moderate sized hiatal hernia. ACT 112: Negative or not required by law. The above report was generated using voice recognition software. It may contain grammatical, syntax or spelling errors. Electronically signed by: Phil Davis M.D. 11/24/2024 12:14 PM Diagnostic Findings Comprehensive Metabolic Panel 11/25/24 11/26/24 Range/Units 21:31 05:48 Sodium 135 L 138 (136-145) mmol/L Potassium 4.0 4.4 (3.5-5.1) mmol/L Chloride 102 105 (98-107) mmol/L Carbon Dioxide 25 23 (21-32) mmol/L BUN 25 H 24 H (6-23) mg/dl Creatinine 1.72 H D 1.61 H (0.6-1.2) mg/dl Glucose 122 H 90 (70-99(Fasting)) mg/dl Calcium 9.6 10.1 (8.6-10.3) mg/dl Intake and Output 11/26/24 11/26/24 11/26/24 06:59 14:59 22:59 Intake Total 400 / 700 1240 / 1240 Balance 400 / 700 1240 / 1240 Intake: IV 200 / 200 1000 / 1000 Albumin 25% 25 gm In 100 ml @ 100 / 100 50 mls/hr IV ONE ONE Rx#: [id number] Magnesium Sulfate / D5w 1 gm In 100 / 100 100 ml @ 50 mls/hr IV ONE ONE Rx#:[id number] Sodium Chloride 0.9% 500 ml @ 500 / 500 999 mls/hr IV .Q31M ONE Rx#: [id number] Sodium Chloride 0.9% 500 ml @ 500 / 500 125 mls/hr IV .Q4H YAN Rx#: [id number] Oral 200 / 500 240 / 240 Other: # Unmeasured Voids 1 Weight 66.5 kg Weight Measurement Method Standing Scale Medications Administered Home Medications Medication Instructions Recorded Confirmed Last Taken amlodipine 5 mg tablet (Norvasc) 5 mg PO QAM #30 tabs 05/21/24 11/24/24 11/09/24 apixaban 2.5 mg tablet (Eliquis) 2.5 mg PO BID #60 tabs 05/21/24 11/24/24 11/09/24 levothyroxine 75 mcg tablet 75 mcg PO DAILYBB #30 tabs 05/21/24 11/24/24 11/09/24 (Synthroid) melatonin 10 mg capsule 10 mg PO HS #30 caps 05/21/24 11/24/24 11/09/24 metoprolol succinate 25 mg 25 mg PO QAM #30 tabs 05/21/24 11/24/24 11/09/24 tablet,extended release 24 hr calcitriol 0.25 mcg capsule 0.25 mcg PO 3XWK 07/16/24 11/24/24 11/07/24 pantoprazole 40 mg tablet,delayed 40 mg PO AMHS 07/16/24 11/24/24 11/09/24 release rosuvastatin 10 mg tablet 10 mg PO HS 07/16/24 11/24/24 11/09/24 acetaminophen 500 mg tablet 500 mg PO TID PRN Pain 08/21/24 11/24/24 Unknown clopidogrel 75 mg tablet 75 mg PO QAM 08/21/24 11/24/24 11/09/24 buspirone 15 mg tablet 15 mg PO BID 11/02/24 11/24/24 11/09/24 ferrous sulfate 325 mg (65 mg 325 mg PO DAILY 11/02/24 11/24/24 11/09/24 iron) tablet (FeroSul) gabapentin 100 mg capsule 100 mg PO BID 11/24/24 11/24/24 Unknown trazodone 100 mg tablet 100 mg PO HS 11/24/24 11/24/24 Unknown Active Medications Generic Name Dose Route Start Last Admin Trade Name Donny PRN Reason Stop Dose Admin Apixaban 2.5 mg 11/24/24 21:00 11/26/24 09:26 Apixaban 2.5 Mg Tab PO 12/24/24 20:59 2.5 mg BID YAN Administration Buspirone HCl 15 mg 11/25/24 20:05 11/26/24 09:26 Buspirone 15 Mg Tab PO 12/25/24 20:04 15 mg BID YAN Administration Calcitriol 0.25 mcg 11/26/24 09:00 11/26/24 09:25 Calcitriol 0.25 Mcg Capsule PO 12/26/24 08:59 0.25 mcg [id number] YAN Administration Clopidogrel Bisulfate 75 mg 11/25/24 09:00 11/26/24 09:25 Clopidogrel Bisulfate 75 Mg Tab PO 12/25/24 08:59 75 mg QAM YAN Administration Ferrous Sulfate 325 mg 11/25/24 09:00 11/26/24 09:25 Ferrous Sulfate 325 Mg Tab PO 12/25/24 08:59 325 mg DAILY YNA Administration Gabapentin 100 mg 11/24/24 21:00 11/26/24 09:26 Gabapentin 100 Mg Cap PO 12/24/24 20:59 100 mg BID YAN Administration Levothyroxine Sodium 75 mcg 11/25/24 06:30 11/26/24 05:39 Levothyroxine Sodium 75 Mcg Tablet PO 12/25/24 06:29 75 mcg DAILYBB YAN Administration Melatonin 9 mg 11/24/24 21:00 11/25/24 20:54 Melatonin 3 Mg Tab PO 12/24/24 20:59 9 mg HS YAN Administration Metoprolol Succinate 25 mg 11/25/24 21:00 11/26/24 09:20 Metoprolol Succ 25mg Ext Rel Tab PO 12/25/24 20:59 Not Given BID YAN Pantoprazole Sodium 40 mg 11/24/24 21:00 11/26/24 09:26 Pantoprazole 40 Mg Tab PO 12/24/24 20:59 40 mg AMHS YAN Administration Rosuvastatin Calcium 10 mg 11/24/24 21:00 11/25/24 20:55 Rosuvastatin Calcium 10 Mg Tab PO 12/24/24 20:59 10 mg HS YAN Administration Sacubitril/Valsartan 1 tab 11/25/24 21:00 11/25/24 20:54 Valsartan/Sacubitril 26/24mg Tab PO 12/25/24 20:59 1 tab BID YAN Administration Trazodone HCl 100 mg 11/24/24 21:00 11/25/24 21:01 Trazodone Hcl 100 Mg Tab PO 12/24/24 20:59 100 mg HS YAN Administration PG Care Time/CCT Total # of Minutes Spent Total Time Spent with Patient: Total time spent is greater than 50% in coordination of care (as documented) at patient's floor/unit and/or counseling patient: Coding Level of Care Code 65447 SUB INP/OBS CARE 3/50MIN Diagnoses SOB (shortness of breath) R06.02 Chronic heart failure with preserved ejection fraction (HFpEF) I50.32 Permanent atrial fibrillation I48.21 Tachy-ramez syndrome I49.5 Presence of permanent cardiac pacemaker Z95.0
--- NOTE | 2024-11-26 15:40 | CT Scan Report ---
CT head/brain wo con CLINICAL HISTORY: confusion. TECHNIQUE: Multiple axial CT images of the head were obtained without contrast. A dose lowering tech nique was utilized adhering to the principles of ALARA. CT DOSE: 625.8 mGy.cm COMPARISON: 11/10/2024 FINDINGS: No intracranial hemorrhage seen. No mass effect, midline shift, or hydrocephalus. There are stable moderate chronic small vessel ischemic changes. No skull fracture seen. Visualized paranasal sinuses and mastoid air cells are clear. IMPRESSION: No acute findings. ACT 112: Negative or not required by law. The above report was generated using voice recognition software. It may contain grammatical, syntax o r spelling errors. Electronically signed by: Raoul Perry M.D. 11/26/2024 3:39 PM
[2024-11-26] MEDS: ACETAMINOPHEN 325 MG TAB PO PRN (19:29)
[2024-11-27 08:08] LABS: Anion Gap 8.0 (3-11); Blood Urea Nitrogen 28.0 mg/dl (6-23); Calcium 9.7 mg/dl (8.6-10.3); Carbon Dioxide 24.0 mmol/L (21-32); Chloride 108.0 mmol/L (98-107); Creatinine Clr Calc Pharmacy 24.6 ml/min; Glucose 94.0 mg/dl (70-99(Fasting)); Potassium 4.0 mmol/L (3.5-5.1); Sodium 140.0 mmol/L (136-145)
--- NOTE | 2024-11-27 11:10 | Hospitalist Progress Note ---
Date of Service November 27, 2024 Assessment & Plan (1) SOB (shortness of breath): (2) Tachy-ramez syndrome: (3) Permanent atrial fibrillation: (4) Hypertension: (5) Chronic heart failure with preserved ejection fraction (HFpEF): (6) Chronic kidney disease stage 3: Plan: Patient is 86 year old female with PMH CAD s/p CABG, permanent a-fib, anticoagulated on Eliquis, Tachybrady syndrome s/p pacemaker, chronic diastolic CHF, hypothyroidism, history of hypercalcemia, hiatal hernia, thoracic aortic ectasia, HTN, mild-moderate aortic stenosis, GERD, depression, anxiety, persistent insomnia, mixed incontinence urge and stress, history of gastric ulcer, cognitive impairment presented to ER with c/o intermittent SOB. #SOB -Negative influenza, RSV, SARS-CoV-2 PCR. BNP: 359. No leukocytosis, no hypoxia -CXR: Stable moderate cardiomegaly without pulmonary vascular congestion. There is stable mild scarring or atelectasis at the left lung base. No new consolidation or pleural effusion. No pneumothorax. -CTA Chest: No pulmonary emboli identified. Trace pleural effusions with mild bibasilar atelectasis. -Clinically there does not appear to be any acute issue causing her SOB -Her SOB is likely multifactorial due to her many cardiac issues, decondit ioning, anxiety Plan Continue to monitor for recurrence of shortness of breath Monitor oxygen saturation #KIM Creatinine up trended from baseline two 1.7 from 1.07 on admission Likely due to hypotensive episode Entresto discontinued; creatinine back to baseline. Patient was given IV fluids on 11/26 Discussed with cardiology; recommended to hold off on Entresto. #Acute on Chronic HFpEF resolved with iv lasix #Mild-Moderate Aortic Stenosis 11/14/2024 echo: EF: 55-60%, left atrium moderately dilated, right atrium moderately dilated, mild aortic regurgitation, mild pulmonic valvular regurgitation, moderate mitral regurgitation, moderate-severe tricuspid regurgitation, mild-moderate aortic stenosis BNp at baseline and does not look overloaded Cardiology was consulted and patient was started on metoprolol, Entresto. Amlodipine was discontinued. However, patient's blood pressure dropped down to SBP of 90s. Entresto was discontinued. Will continue metoprolol for now. #Tachy-ramez syndrome S/P pacemaker on 11/14/2024, and had subsequent left-sided pneumothorax requiring chest tube. Pacemaker interrogation #Permanent atrial fibrillation Continue Eliquis, metoprolol succinate #History of CAD s/p CABG Continue Plavix, rosuvastatin and Eliquis #HTN Continue metoprolol #Chronic anemia Hgb: 11.9. Baseline 11's-12's #Hypothyroidism On Synthroid-continue #GERD #Hiatal Hernia Continue Protonix #HLD Continue rosuvastatin #Depression #Anxiety Continue home buspirone #Insomnia On trazodone, melatonin DVT Prophylaxis On Eliquis Time spent evaluating patient, direct bedside care, chart review, placing orders, interpretation of diagnostic studies, discussion with consultants, patient, and family members, as well as other required patient management activities is 50 minutes Please note the above document was generated using voice recognition software. It may contain grammatical, syntax or spelling errors. Any formal questions or concerns about the content, text or information contained within the body of this dictation should be directly addressed to the provider for clarification Admission and Anticipated Discharge Date Admission Date: November 24, 2024 Subjective Patient seen and examined at bedside. She reports that she is feeling better. She denies any shortness of breath, chest pain or abdominal pain. Review of Systems Review of Systems: All systems reviewed & are unremarkable except as noted in Subjective Physical Exam Physical Exam: Constitutional: WD/WN, vitals as above, NAD, sitting up in bed, pleasant, conversing easily Respiratory: normal respiratory effort, lungs clear to auscultation, no wheeze, rales, rhonchi. Normal insp/exp effort, no accessory muscle use Cardiovascular: RRR, no murmur, no edema Vessels: no JVD or carotid bruit Chest: normal inspection of chest Abdomen: normal bowel sounds, soft, nontender, no hepatosplenomegaly Musculoskeletal: no cyanosis or clubbing, extremities motor strength 5/5 Skin: no rashes, warm and dry normal turgor Neurologic: PERRL, EOMI, accommodation nl, no face palsy, no dysarthria CN's II- XI intact bilaterally and moves all extremities Psychiatric: A+Ox3, euthymic affect Results & Data Results & Data Vital Signs (Past 12 Hours) Vital Signs Temp Pulse Pulse Resp BP Pulse Ox O2 Del Method 11/27/24 08:02 36.9 C 70 18 110/64 96 Room Air 11/27/24 05:45 70 (4) Hypertension Hypertension type: unspecified Qualified Code(s): I10 - Essential (primary) hypertension
--- NOTE | 2024-11-27 11:17 | Cardiology Progress Note ---
Date of Service November 27, 2024 Assessment & Plan (1) SOB (shortness of breath): (2) Chronic heart failure with preserved ejection fraction (HFpEF): (3) Permanent atrial fibrillation: (4) Tachy-ramez syndrome: (5) Presence of permanent cardiac pacemaker: Plan Assessment: 86 year old female with known history of HFpEF admitted for concerns of acute heart failure exacerbation. Patient with recent increased sodium intake, but reported medication compliance. Cardiology consulted for further assessment and recommendations. KIM c/w pre-renal azotemia - better Acute on chronic HFpEF - improved Permanent atrial fibrillation Tachy-ramez syndrome s/p PPM po hydration continue anticoagulation GDMT for HFpEF keeping systolic BP between 100-140 mmHg off Norvasc metoprolol xl to 25mg as per parameters keeping systolic BP greater than 100 mmHg start Entresto after patient is euvolemic and as per parameters keeping systolic BP greater than 100 mmHg -> can be done as OP keep patient euvolemic and avoid hypovolemia for patient to be able to tolerate GDMT avoid aggressive diuresis and hypovolemia salt restriction Stable from card standpoint for discharge please recall if needed will sign off Admission and Anticipated Discharge Date Admission Date: November 24, 2024 Subjective Patient on exam is sitting in chair in NAD; no c/o cp, sob, palpitations, dizziness, LOC; feels better Review of Systems Review of Systems: forgetful Physical Exam Constitutional: no acute distress Neck: normal visual inspection Respiratory: normal respiratory effort, lungs clear to auscultation Cardiovascular: Heart Sounds: normal S1 and normal S2 Extremities: no edema Gastrointestinal (Abdomen): normal bowel sounds, soft, nontender, no hepatosplenomegaly Psychiatric: Orientation: alert Results & Data Vital Signs (Past 12 Hours) Vital Signs Temp Pulse Pulse Resp BP Pulse Ox O2 Del Method 11/27/24 08:02 36.9 C 70 18 110/64 96 Room Air 11/27/24 05:45 70 Laboratory Results Laboratory Results - last 48 hr 11/25/24 11/26/24 11/27/24 21:31 05:48 07:10 Sodium 135 L 138 140 Potassium 4.0 4.4 4.0 Chloride 102 105 108 H Carbon Dioxide 25 23 24 Anion Gap 8 10 8 BUN 25 H 24 H 28 H Creatinine 1.72 H D 1.61 H 1.42 H Est Cr Clr Drug Dosing 20.6 22.1 24.6 eGFR 28.27 30.60 35.58 BUN/Creatinine Ratio 14.5 14.9 19.7 Glucose 122 H 90 94 Lactate 0.8 Calcium 9.6 10.1 9.7 Diagnostic Findings Laboratory Results WBC 5.76 K/ul (4.8-10.8) 11/25/24 06:17 RBC 4.12 M/uL (4.20-5.40) L 11/25/24 06:17 Hgb 12.7 g/dl (12.0-16.0) 11/25/24 06:17 Hct 37.1 % (37.0-47.0) 11/25/24 06:17 MCV 90.0 fL (80.0-100.0) 11/25/24 06:17 MCH 30.8 pg (25.0-34.0) 11/25/24 06:17 MCHC 34.2 g/dL (32.0-36.0) 11/25/24 06:17 RDW Std Deviation 43.1 fL (36.4-46.3) 11/25/24 06:17 RDW Coeff of Howie 13.1 % (11.5-14.5) 11/25/24 06:17 Plt Count 147 K/uL (130-400) 11/25/24 06:17 MPV 9.9 fL (9.4-12.4) 11/25/24 06:17 Immature Gran % (Auto) 0.3 % 11/24/24 09:27 Neut % (Auto) 55.3 % 11/24/24 09:27 Lymph % (Auto) 29.0 % 11/24/24 09:27 [place] % (Auto) 11.7 % 11/24/24 09:27 Eos % (Auto) 3.1 % 11/24/24 09:27 Baso % (Auto) 0.6 % 11/24/24 09:27 Neut # (Auto) 3.51 K/uL (1.40-6.50) 11/24/24 09:27 Lymph # (Auto) 1.84 K/uL (1.20-3.40) 11/24/24 09:27 [place] # (Auto) 0.74 K/uL (0.11-0.59) H 11/24/24 09:27 Eos # (Auto) 0.20 K/uL (0.00-0.50) 11/24/24 09:27 Baso # (Auto) 0.04 K/uL (0.00-0.20) 11/24/24 09:27 Immature Gran # (Auto) 0.02 K/uL (0.01-0.20) 11/24/24 09:27 PT 11.8 Seconds (9.0-12.0) 11/24/24 09:27 INR 1.1 (0.9-1.1) 11/24/24 09:27 APTT 24 Seconds (21-31) 11/24/24 09:27 PTT Ratio 0.9 11/24/24 09:27 Sodium 140 mmol/L (136-145) 11/27/24 07:10 Potassium 4.0 mmol/L (3.5-5.1) 11/27/24 07:10 Chloride 108 mmol/L (98-107) H 11/27/24 07:10 Carbon Dioxide 24 mmol/L (21-32) 11/27/24 07:10 Anion Gap 8 (3-11) 11/27/24 07:10 BUN 28 mg/dl (6-23) H 11/27/24 07:10 Creatinine 1.42 mg/dl (0.6-1.2) H 11/27/24 07:10 Est Cr Clr Drug Dosing 24.6 ml/min 11/27/24 07:10 eGFR 35.58 11/27/24 07:10 BUN/Creatinine Ratio 19.7 (10-20) 11/27/24 07:10 Glucose 94 mg/dl (70-99(Fasting)) 11/27/24 07:10 Lactate 0.8 mmol/L (0.4-2.0) 11/25/24 21:31 Calcium 9.7 mg/dl (8.6-10.3) 11/27/24 07:10 Magnesium 1.9 mg/dl (1.7-2.4) 11/25/24 06:17 Total Bilirubin 0.7 mg/dl (0.2-1.0) 11/24/24 09:27 AST 14 U/L (13-39) 11/24/24 09:27 ALT 8 U/L (7-52) 11/24/24 09:27 Alkaline Phosphatase 53 U/L (34-104) 11/24/24 09:27 Troponin I High Sens 12.8 pg/ml (0-14) 11/24/24 09: B-Natriuretic Peptide 359 pg/ml (0-100) H 11/24/24 09:27 Total Protein 6.7 gm/dl (6.0-8.3) 11/24/24 09:27 Albumin 3.8 gm/dl (3.4-5.0) 11/24/24 09: Globulin 2.9 gm/dl (2.5-4.0) 11/24/24 09:27 Albumin/Globulin Ratio 1.3 (0.9-2) 11/24/24 09:27 Urine Color Yellow 11/24/24 09:39 Urine Appearance Clear (Clear) 11/24/24 09:39 Urine pH 7.5 (4.5-7.5) 11/24/24 09:39 Ur Specific [place] 1.004 (1.000-1.030) 11/24/24 09:39 Urine Protein Negative (Negative) 11/24/24 09:39 Urine Glucose (UA) Negative (Negative) 11/24/24 09:39 Urine Ketones Negative (Negative) 11/24/24 09:39 Urine Blood Negative (Negative) 11/24/24 09:39 Urine Nitrite Negative (Negative) 11/24/24 09:39 Urine Bilirubin Negative (Negative) 11/24/24 09:39 Urine Urobilinogen Negative (Negative) 11/24/24 09:39 Ur Leukocyte Esterase Trace (Negative) H 11/24/24 09:39 Urine WBC (Auto) 0-5 /hpf (0-5) 11/24/24 09:39 Urine RBC (Auto) 0-2 /hpf (0-2) 11/24/24 09:39 U Hyaline Cast (Auto) 0-2 /lpf (0-2) 11/24/24 09:39 U Epithel Cells (Auto) 0-2 /hpf (0-2) 11/24/24 09:39 Urine Bacteria (Auto) None Seen (None Seen) 11/24/24 09:39 Urine Comment 11/24/24 09:39 SARS-CoV-2 (PCR) NEGATIVE (Negative) 11/24/24 09:42 Influenza Type A (PCR) Negative (Neg) 11/24/24 09:42 Influenza Type B (PCR) Negative (Neg) 11/24/24 09:42 RSV (RT-PCR) Negative (Neg) 11/24/24 09:42 Impressions Chest X-Ray 11/24/24 09:24 XR chest 1V portable CLINICAL HISTORY: Dyspnea COMPARISON STUDY: 11/16/2024 FINDINGS: Stable CABG, pacemaker, and shoulder prostheses. Stable moderate hiatal hernia. Stable moderate cardiomegaly without pulmonary vascular congestion. There is stable mild scarring or atelectasis at the left lung base. No new consolidation or pleural effusion. No pneumothorax. Stable old right rib fractures. IMPRESSION: Stable exam. ACT 112: Negative or not required by law. Electronically signed by: Raoul Perry M.D. 11/24/2024 9:49 AM Chest CTA 11/24/24 09:57 CT angio chest PE protocol CT DOSE: 599.67 mGy.cm HISTORY: 86 years-old Female with PE. Acute chest pain with shortness of callie ath TECHNIQUE: Multiple CTA images of the chest were obtained after the intravenous administration of 112 ml Optiray. Coronal and sagittal MIPS were obtained from the axial data set and were submitted for review. All measurements were obtained according to NASCET criteria. A dose lowering technique was utilized adhering to the principles of ALARA. COMPARISON: 05/18/2024, 12/01/2021. FINDINGS: CTA: Moderate cardiomegaly. Prior median sternotomy with CABG. Moderate to extensive syc[place] coronary artery calcifications. Ectasia of the ascending thoracic aorta measures 3.9 cm. No pulmonary emboli identified. Suboptimal evaluation of the segmental and subsegmental branches. CT CHEST: No dominant thyroid nodule is seen. No pathologically adenopathy by CT size criteria. There is no pneumothorax, pleural effusion or focal airspace consolidation. Unremarkable thyroid. No lymphadenopathy. Mild left hemidiaphragm elevation with trace pleural effusions. Unchanged subpleural nodular focus of the right lower lobe on image 109 measures 1.6 cm. This is unchanged from 2021 and benign. Mild dependent subsegmental bibasilar atelectasis. No overt pulmonary edema or airspace consolidation typical for pneumonia. There are a few scattered bilateral solid pulmonary nodules which are unchanged from 2022 measuring up to 4 mm which are also benign. Central airways are patent. Mid to distal esophageal wall thickening with moderate sized hiatal hernia. Calcified granulomata of the spleen. Unremarkable soft tissues. Bilateral shoulder arthroplasties. Prominent levoscoliosis of the upper lumbar spine. Chronic posterior right-sided rib fractures. IMPRESSION: 1. No pulmonary emboli identified. 2. Trace pleural effusions with mild bibasilar atelectasis. 3. Stable solid pulmonary nodules are unchanged dating back to 2021 suggestive of benign etiology. 4. Mid to distal esophageal wall thickening with moderate sized hiatal hernia. ACT 112: Negative or not required by law. The above report was generated using voice recognition software. It may contain grammatical, syntax or spelling errors. Electronically signed by: Phil Davis M.D. 11/24/2024 12:[address] 11/26/24 14:00 CT head/brain wo con CLINICAL HISTORY: confusion. TECHNIQUE: Multiple axial CT images of the head were obtained without contrast. A dose lowering technique was utilized adhering to the principles of ALARA. CT DOSE: 625.8 mGy.cm COMPARISON: 11/10/2024 FINDINGS: No intracranial hemorrhage seen. No mass effect, midline shift, or hydrocephalus. There are stable moderate chronic small vessel ischemic changes. No skull fracture seen. Visualized paranasal sinuses and mastoid air cells are clear. IMPRESSION: No acute findings. ACT 112: Negative or not required by law. The above report was generated using voice recognition software. It may contain grammatical, syntax or spelling errors. Electronically signed by: Raoul Perry M.D. 11/26/2024 3:39 PM Medications Administered Home Medications Medication Instructions Recorded Confirmed Last Taken amlodipine 5 mg tablet (Norvasc) 5 mg PO QAM #30 tabs 05/21/24 11/24/24 11/09/24 apixaban 2.5 mg tablet (Eliquis) 2.5 mg PO BID #60 tabs 05/21/24 11/24/24 11/09/24 levothyroxine 75 mcg tablet 75 mcg PO DAILYBB #30 tabs 05/21/24 11/24/24 11/09/24 (Synthroid) melatonin 10 mg capsule 10 mg PO HS #30 caps 05/21/24 11/24/24 11/09/24 metoprolol succinate 25 mg 25 mg PO QAM #30 tabs 05/21/24 11/24/2425 tablet,extended release 24 hr calcitriol 0.25 mcg capsule 0.25 mcg PO 3XWK 07/16/24 11/24/24 11/07/24 pantoprazole 40 mg tablet,delayed 40 mg PO AMHS 07/16/24 11/24/24 11/09/24 release rosuvastatin 10 mg tablet 10 mg PO HS 07/16/24 11/24/24 11/09/24 acetaminophen 500 mg tablet 500 mg PO TID PRN Pain 08/21/24 11/24/24 Unknown clopidogrel 75 mg tablet 75 mg PO QAM 08/21/24 11/24/24 11/09/24 buspirone 15 mg tablet 15 mg PO BID 11/02/24 11/24/24 11/09/24 ferrous sulfate 325 mg (65 mg 325 mg PO DAILY 11/02/24 11/24/24 11/09/24 iron) tablet (FeroSul) gabapentin 100 mg capsule 100 mg PO BID 11/24/24 11/24/24 Unknown trazodone 100 mg tablet 100 mg PO HS 11/24/24 11/24/24 Unknown Active Medications Generic Name Dose Route Start Last Admin Trade Name Freq PRN Reason Stop Dose Admin Acetaminophen 650 mg 11/24/24 15:58 11/26/24 19:29 Acetaminophen 325 Mg Tab PO 12/24/24 15:57 650 mg Q4H PRN Administration Pain or Fever Apixaban 2.5 mg 11/24/24 21:00 11/27/24 08:49 Apixaban 2.5 Mg Tab PO 12/24/24 20:59 2.5 mg BID YAN Administration Buspirone HCl 15 mg 11/25/24 20:05 11/27/24 08:49 Buspirone 15 Mg Tab PO 12/25/24 20:04 15 mg BID YAN Administration Calcitriol 0.25 mcg 11/26/24 09:00 11/26/24 09:25 Calcitriol 0.25 Mcg Capsule PO 12/26/24 08:59 0.25 mcg [id number] YAN Administration Clopidogrel Bisulfate 75 mg 11/25/24 09:00 11/27/24 08:50 Clopidogrel Bisulfate 75 Mg Tab PO 12/25/24 08:59 75 mg QAM YAN Administration Ferrous Sulfate 325 mg 11/25/24 09:00 11/27/24 08:50 Ferrous Sulfate 325 Mg Tab PO 12/25/24 08:59 325 mg DAILY YAN Administration Gabapentin 100 mg 11/24/24 21:00 11/27/24 08:51 Gabapentin 100 Mg Cap PO 12/24/24 20:59 100 mg BID YAN Administration Levothyroxine Sodium 75 mcg 11/25/24 06:30 11/27/24 05:39 Levothyroxine Sodium 75 Mcg Tablet PO 12/25/24 06:29 75 mcg DAILYBB YAN Administration Melatonin 9 mg 11/24/24 21:00 11/26/24 20:12 Melatonin 3 Mg Tab PO 12/24/24 20:59 9 mg HS YAN Administration Metoprolol Succinate 25 mg 11/25/24 21:00 11/27/24 08:51 Metoprolol Succ 25mg Ext Rel Tab PO 12/25/24 20:59 25 mg BID YAN Administration Pantoprazole Sodium 40 mg 11/24/24 21:00 11/27/24 08:52 Pantoprazole 40 Mg Tab PO 12/24/24 20:59 40 mg AMHS YAN Administration Rosuvastatin Calcium 10 mg 11/24/24 21:00 11/26/24 20:13 Rosuvastatin Calcium 10 Mg Tab PO 12/24/24 20:59 10 mg HS YAN Administration Sacubitril/Valsartan 1 tab 11/25/24 21:00 11/25/24 20:54 Valsartan/Sacubitril 26/24mg Tab PO 12/25/24 20:59 1 tab BID YAN Administration Trazodone HCl 100 mg 11/24/24 21:00 11/26/24 20:13 Trazodone Hcl 100 Mg Tab PO 12/24/24 20:59 100 mg HS YAN Administration PG Care Time/CCT Total # of Minutes Spent Total Time Spent with Patient: Total time spent is greater than 50% in coordination of care (as documented) at patient's floor/unit and/or counseling patient: Coding Level of Care Code 88902 SUB INP/OBS CARE 3/50MIN Diagnoses SOB (shortness of breath) R06.02 Chronic heart failure with preserved ejection fraction (HFpEF) I50.32 Permanent atrial fibrillation I48.21 Tachy-ramez syndrome I49.5 Presence of permanent cardiac pacemaker Z95.0
[2024-11-27] MEDS: CALAMINE/PRAMOXINE LOTION 180 APPLN/180 ML BTL EXT SCH (14:35)
[2024-11-27] MEDS: INFLUENZA VACC TS2025-26(65y+)/PF (IIV3) 0.5mL Syr IM ONE (15:39)
[2024-11-28] MEDS: CETIRIZINE HCL 10 MG TABLET PO ONE ×2 (01:12→20:55)
[2024-11-28 07:08] LABS: Hematocrit (blood only) 36.0 % (37.0-47.0); Hemoglobin 11.9 g/dl (12.0-16.0); Immature Granulocytes # (auto) 0.01 K/uL (0.01-0.20); Immature Granulocytes % (auto) 0.2 %; Mean Corpuscular Hemoglobin 30.5 pg (25.0-34.0); Mean Corpuscular Volume 92.3 fL (80.0-100.0); Platelet Count 143 K/uL (130-400); RDW Standard Deviation 44.7 fL (36.4-46.3); Red Blood Count 3.90 M/uL (4.20-5.40); White Blood Count 6.07 K/ul (4.8-10.8)
[2024-11-28 07:33] LABS: Anion Gap 4.0 (3-11); Blood Urea Nitrogen 26.0 mg/dl (6-23); Calcium 9.6 mg/dl (8.6-10.3); Carbon Dioxide 26.0 mmol/L (21-32); Chloride 110.0 mmol/L (98-107); Creatinine Clr Calc Pharmacy 25.4 ml/min; Glucose 93.0 mg/dl (70-99(Fasting)); Potassium 4.3 mmol/L (3.5-5.1); Sodium 140.0 mmol/L (136-145)
[2024-11-28] MEDS: CETIRIZINE HCL 10 MG TABLET PO SCH (09:47)
--- NOTE | 2024-11-28 11:32 | Hospitalist Progress Note ---
Date of Service November 28, 2024 Assessment & Plan (1) SOB (shortness of breath): (2) Tachy-ramez syndrome: (3) Permanent atrial fibrillation: (4) Hypertension: (5) Chronic heart failure with preserved ejection fraction (HFpEF): (6) Chronic kidney disease stage 3: Plan: Patient is 86 year old female with PMH CAD s/p CABG, permanent a-fib, anticoagulated on Eliquis, Tachybrady syndrome s/p pacemaker, chronic diastolic CHF, hypothyroidism, history of hypercalcemia, hiatal hernia, thoracic aortic ectasia, HTN, mild-moderate aortic stenosis, GERD, depression, anxiety, persistent insomnia, mixed incontinence urge and stress, history of gastric ulcer, cognitive impairment presented to ER with c/o intermittent SOB. #SOB -Negative influenza, RSV, SARS-CoV-2 PCR. BNP: 359. No leukocytosis, no hypoxia -CXR: Stable moderate cardiomegaly without pulmonary vascular congestion. There is stable mild scarring or atelectasis at the left lung base. No new consolidation or pleural effusion. No pneumothorax. -CTA Chest: No pulmonary emboli identified. Trace pleural effusions with mild bibasilar atelectasis. -Clinically there does not appear to be any acute issue causing her SOB -Her SOB is likely multifactorial due to her many cardiac issues, decondi tioning, anxiety Plan Continue to monitor for recurrence of shortness of breath Monitor oxygen saturation #KIM Creatinine up trended from baseline two 1.7 from 1.07 on admission Likely due to hypotensive episode Entresto discontinued; creatinine back to baseline. Patient was given IV fluids on 11/26 Discussed with cardiology; recommended to hold off on Entresto. #Acute on Chronic HFpEF resolved with iv lasix #Mild-Moderate Aortic Stenosis 11/14/2024 echo: EF: 55-60%, left atrium moderately dilated, right atrium moderately dilated, mild aortic regurgitation, mild pulmonic valvular regurgitation, moderate mitral regurgitation, moderate-severe tricuspid regurgitation, mild-moderate aortic stenosis BNp at baseline and does not look overloaded Cardiology was consulted and patient was started on metoprolol, Entresto. Amlodipine was discontinued. However, patient's blood pressure dropped down to SBP of 90s. Entresto was discontinued. Will continue metoprolol for now. #Tachy-ramez syndrome S/P pacemaker on 11/14/2024, and had subsequent left-sided pneumothorax requiring chest tube. Pacemaker interrogation #Permanent atrial fibrillation Continue Eliquis, metoprolol succinate #History of CAD s/p CABG Continue Plavix, rosuvastatin and Eliquis #HTN Continue metoprolol #Chronic anemia Hgb: 11.9. Baseline 11's-12's #Hypothyroidism On Synthroid-continue #GERD #Hiatal Hernia Continue Protonix #HLD Continue rosuvastatin #Depression #Anxiety Continue home buspirone #Insomnia On trazodone, melatonin DVT Prophylaxis On Eliquis Dispositionawaiting rehab placement Please note the above document was generated using voice recognition software. It may contain grammatical, syntax or spelling errors. Any formal questions or concerns about the content, text or information contained within the body of this dictation should be directly addressed to the provider for clarification Admission and Anticipated Discharge Date Admission Date: November 24, 2024 Subjective Patient seen and examined at bedside. Comfortable; not in distress. Denies fever, chills, chest pain, shortness of breath, abdominal pain or urinary symptoms. No significant overnight events Review of Systems Review of Systems: All systems reviewed & are unremarkable except as noted in Subjective Physical Exam Physical Exam: Constitutional: WD/WN, vitals as above, NAD, sitting up in bed, pleasant, conversing easily Respiratory: normal respiratory effort, lungs clear to auscultation, no wheeze, rales, rhonchi. Normal insp/exp effort, no accessory muscle use Cardiovascular: RRR, no murmur, no edema Vessels: no JVD or carotid bruit Chest: normal inspection of chest Abdomen: normal bowel sounds, soft, nontender, no hepatosplenomegaly Musculoskeletal: no cyanosis or clubbing, extremities motor strength 5/5 Skin: no rashes, warm and dry normal turgor Neurologic: PERRL, EOMI, accommodation nl, no face palsy, no dysarthria CN's II- XI intact bilaterally and moves all extremities Results & Data Results & Data Vital Signs (Past 12 Hours) Vital Signs Temp Pulse Pulse Resp BP BP Pulse Ox 11/28/24 10:55 36.5 C 70 18 116/72 97 11/28/24 09:57 11/28/24 08:10 36.7 C 70 16 134/85 99 11/28/24 05:45 70 11/28/24 05:06 36.9 C 69 18 127/78 97 11/28/24 03:09 O2 Del Method 11/28/24 10:55 Room Air 11/28/24 09:57 Room Air 11/28/24 08:10 Room Air 11/28/24 05:45 11/28/24 05:06 Room Air 11/28/24 03:09 Room Air (4) Hypertension Hypertension type: unspecified Qualified Code(s): I10 - Essential (primary) hypertension
--- NOTE | 2024-11-29 13:23 | Hospitalist Progress Note ---
Date of Service November 29, 2024 Assessment & Plan (1) SOB (shortness of breath): (2) Tachy-ramez syndrome: (3) Permanent atrial fibrillation: (4) Hypertension: (5) Chronic heart failure with preserved ejection fraction (HFpEF): (6) Chronic kidney disease stage 3: Plan: Patient is 86 year old female with PMH CAD s/p CABG, permanent a-fib, anticoagulated on Eliquis, Tachybrady syndrome s/p pacemaker, chronic diastolic CHF, hypothyroidism, history of hypercalcemia, hiatal hernia, thoracic aortic ectasia, HTN, mild-moderate aortic stenosis, GERD, depression, anxiety, persistent insomnia, mixed incontinence urge and stress, history of gastric ulcer, cognitive impairment presented to ER with c/o intermittent SOB. #SOB -Negative influenza, RSV, SARS-CoV-2 PCR. BNP: 359. No leukocytosis, no hypoxia -CXR: Stable moderate cardiomegaly without pulmonary vascular congestion. There is stable mild scarring or atelectasis at the left lung base. No new consolidation or pleural effusion. No pneumothorax. -CTA Chest: No pulmonary emboli identified. Trace pleural effusions with mild bibasilar atelectasis. -Clinically there does not appear to be any acute issue causing her SOB -Her SOB is likely multifactorial due to her many cardiac issues, decondi tioning, anxiety Plan Continue to monitor for recurrence of shortness of breath Monitor oxygen saturation #KIM Creatinine up trended from baseline two 1.7 from 1.07 on admission Likely due to hypotensive episode Entresto discontinued; creatinine back to baseline. Patient was given IV fluids on 11/26 Discussed with cardiology; recommended to hold off on Entresto. #Acute on Chronic HFpEF resolved with iv lasix #Mild-Moderate Aortic Stenosis 11/14/2024 echo: EF: 55-60%, left atrium moderately dilated, right atrium moderately dilated, mild aortic regurgitation, mild pulmonic valvular regurgitation, moderate mitral regurgitation, moderate-severe tricuspid regurgitation, mild-moderate aortic stenosis BNp at baseline and does not look overloaded Cardiology was consulted and patient was started on metoprolol, Entresto. Amlodipine was discontinued. However, patient's blood pressure dropped down to SBP of 90s. Entresto was discontinued. Will continue metoprolol for now. #Tachy-ramez syndrome S/P pacemaker on 11/14/2024, and had subsequent left-sided pneumothorax requiring chest tube. Pacemaker interrogation #Permanent atrial fibrillation Continue Eliquis, metoprolol succinate #History of CAD s/p CABG Continue Plavix, rosuvastatin and Eliquis #HTN Continue metoprolol #Chronic anemia Hgb: 11.9. Baseline 11's-12's #Hypothyroidism On Synthroid-continue #GERD #Hiatal Hernia Continue Protonix #HLD Continue rosuvastatin #Depression #Anxiety Continue home buspirone #Insomnia On trazodone, melatonin DVT Prophylaxis On Eliquis Dispositionawaiting rehab placement Please note the above document was generated using voice recognition software. It may contain grammatical, syntax or spelling errors. Any formal questions or concerns about the content, text or information contained within the body of this dictation should be directly addressed to the provider for clarification Admission and Anticipated Discharge Date Admission Date: November 24, 2024 Subjective Patient seen and examined at bedside. She is comfortable; not in distress. Denies any pain or discomfort No significant events overnight Review of Systems Review of Systems: All systems reviewed & are unremarkable except as noted in Subjective Physical Exam Physical Exam: Constitutional: WD/WN, vitals as above, NAD, sitting up in bed, pleasant, conversing easily Respiratory: normal respiratory effort, lungs clear to auscultation, no wheeze, rales, rhonchi. Normal insp/exp effort, no accessory muscle use Cardiovascular: RRR, no murmur, no edema Vessels: no JVD or carotid bruit Chest: normal inspection of chest Abdomen: normal bowel sounds, soft, nontender, no hepatosplenomegaly Musculoskeletal: no cyanosis or clubbing, extremities motor strength 5/5 Skin: no rashes, warm and dry normal turgor Neurologic: PERRL, EOMI, accommodation nl, no face palsy, no dysarthria CN's II- XI intact bilaterally and moves all extremities Results & Data Results & Data Vital Signs (Past 12 Hours) Vital Signs Temp Pulse Resp BP Pulse Ox O2 Del Method 11/29/24 07:48 36.5 C 69 18 131/83 97 Room Air (4) Hypertension Hypertension type: unspecified Qualified Code(s): I10 - Essential (primary) hypertension
--- NOTE | 2024-11-30 13:15 | Hospitalist Progress Note ---
Date of Service November 30, 2024 Assessment & Plan (1) SOB (shortness of breath): (2) Tachy-ramez syndrome: (3) Permanent atrial fibrillation: (4) Hypertension: (5) Chronic heart failure with preserved ejection fraction (HFpEF): (6) Chronic kidney disease stage 3: Plan: Patient is 86 year old female with PMH CAD s/p CABG, permanent a-fib, anticoagulated on Eliquis, Tachybrady syndrome s/p pacemaker, chronic diastolic CHF, hypothyroidism, history of hypercalcemia, hiatal hernia, thoracic aortic ectasia, HTN, mild-moderate aortic stenosis, GERD, depression, anxiety, persistent insomnia, mixed incontinence urge and stress, history of gastric ulcer, cognitive impairment presented to ER with c/o intermittent SOB. #SOB -Negative influenza, RSV, SARS-CoV-2 PCR. BNP: 359. No leukocytosis, no hypoxia -CXR: Stable moderate cardiomegaly without pulmonary vascular congestion. There is stable mild scarring or atelectasis at the left lung base. No new consolidation or pleural effusion. No pneumothorax. -CTA Chest: No pulmonary emboli identified. Trace pleural effusions with mild bibasilar atelectasis. -Clinically there does not appear to be any acute issue causing her SOB -Her SOB is likely multifactorial due to her many cardiac issues, decondi tioning, anxiety Plan Continue to monitor for recurrence of shortness of breath Monitor oxygen saturation #KIM Creatinine up trended from baseline two 1.7 from 1.07 on admission Likely due to hypotensive episode Entresto discontinued; creatinine back to baseline. Patient was given IV fluids on 11/26 Discussed with cardiology; recommended to hold off on Entresto. #Acute on Chronic HFpEF resolved with iv lasix #Mild-Moderate Aortic Stenosis 11/14/2024 echo: EF: 55-60%, left atrium moderately dilated, right atrium moderately dilated, mild aortic regurgitation, mild pulmonic valvular regurgitation, moderate mitral regurgitation, moderate-severe tricuspid regurgitation, mild-moderate aortic stenosis BNp at baseline and does not look overloaded Cardiology was consulted and patient was started on metoprolol, Entresto. Amlodipine was discontinued. However, patient's blood pressure dropped down to SBP of 90s. Entresto was discontinued. Will continue metoprolol for now. #Tachy-ramez syndrome S/P pacemaker on 11/14/2024, and had subsequent left-sided pneumothorax requiring chest tube. Pacemaker interrogation #Permanent atrial fibrillation Continue Eliquis, metoprolol succinate #History of CAD s/p CABG Continue Plavix, rosuvastatin and Eliquis #HTN Continue metoprolol #Chronic anemia Hgb: 11.9. Baseline 11's-12's #Hypothyroidism On Synthroid-continue #GERD #Hiatal Hernia Continue Protonix #HLD Continue rosuvastatin #Depression #Anxiety Continue home buspirone #Insomnia On trazodone, melatonin DVT Prophylaxis On Eliquis Dispositionawaiting rehab placement Please note the above document was generated using voice recognition software. It may contain grammatical, syntax or spelling errors. Any formal questions or concerns about the content, text or information contained within the body of this dictation should be directly addressed to the provider for clarification Admission and Anticipated Discharge Date Admission Date: November 24, 2024 Subjective Patient seen and examined at bedside. Comfortable; not in distress. Denies fever, chills, chest pain, shortness of breath, abdominal pain or urinary symptoms. No significant overnight events Review of Systems Review of Systems: All systems reviewed & are unremarkable except as noted in Subjective Physical Exam Physical Exam: Constitutional: WD/WN, vitals as above, NAD, sitting up in bed, pleasant, conversing easily Respiratory: normal respiratory effort, lungs clear to auscultation, no wheeze, rales, rhonchi. Normal insp/exp effort, no accessory muscle use Cardiovascular: RRR, no murmur, no edema Vessels: no JVD or carotid bruit Chest: normal inspection of chest Abdomen: normal bowel sounds, soft, nontender, no hepatosplenomegaly Musculoskeletal: no cyanosis or clubbing, extremities motor strength 5/5 Skin: no rashes, warm and dry normal turgor Neurologic: PERRL, EOMI, accommodation nl, no face palsy, no dysarthria CN's II- XI intact bilaterally and moves all extremities Results & Data Results & Data Vital Signs (Past 12 Hours) Vital Signs Temp Pulse Resp BP Pulse Ox O2 Del Method 11/30/24 07:50 36.5 C 70 16 136/80 97 Room Air (4) Hypertension Hypertension type: unspecified Qualified Code(s): I10 - Essential (primary) hypertension
[2024-11-30] MEDS: diphenhydrAMINE Capsule 25 MG CAP PO ONE (22:05)
--- NOTE | 2024-12-01 10:52 | Hospitalist Progress Note ---
Date of Service December 01, 2024 Assessment & Plan (1) SOB (shortness of breath): (2) Tachy-ramez syndrome: (3) Permanent atrial fibrillation: (4) Hypertension: (5) Chronic heart failure with preserved ejection fraction (HFpEF): (6) Chronic kidney disease stage 3: Plan: Patient is 86 year old female with PMH CAD s/p CABG, permanent a-fib, anticoagulated on Eliquis, Tachybrady syndrome s/p pacemaker, chronic diastolic CHF, hypothyroidism, history of hypercalcemia, hiatal hernia, thoracic aortic ectasia, HTN, mild-moderate aortic stenosis, GERD, depression, anxiety, persistent insomnia, mixed incontinence urge and stress, history of gastric ulcer, cognitive impairment presented to ER with c/o intermittent SOB. #SOB -Negative influenza, RSV, SARS-CoV-2 PCR. BNP: 359. No leukocytosis, no hypoxia -CXR: Stable moderate cardiomegaly without pulmonary vascular congestion. There is stable mild scarring or atelectasis at the left lung base. No new consolidation or pleural effusion. No pneumothorax. -CTA Chest: No pulmonary emboli identified. Trace pleural effusions with mild bibasilar atelectasis. -Clinically there does not appear to be any acute issue causing her SOB -Her SOB is likely multifactorial due to her many cardiac issues, decondi tioning, anxiety #KIM-resolved Creatinine up trended from baseline two 1.7 from 1.07 on admission Likely due to hypotensive episode Entresto discontinued; creatinine back to baseline. Patient was given IV fluids on 11/26 Discussed with cardiology; recommended to hold off on Entresto. #Acute on Chronic HFpEF resolved with iv lasix #Mild-Moderate Aortic Stenosis 11/14/2024 echo: EF: 55-60%, left atrium moderately dilated, right atrium moderately dilated, mild aortic regurgitation, mild pulmonic valvular regurgitation, moderate mitral regurgitation, moderate-severe tricuspid reg urgitation, mild-moderate aortic stenosis BNp at baseline and does not look overloaded Cardiology was consulted and patient was started on metoprolol, Entresto. Amlodipine was discontinued. However, patient's blood pressure dropped down to SBP of 90s. Entresto was discontinued. Will continue metoprolol for now. #Tachy-ramez syndrome S/P pacemaker on 11/14/2024, and had subsequent left-sided pneumothorax requiring chest tube. Pacemaker interrogation #Permanent atrial fibrillation Continue Eliquis, metoprolol succinate #History of CAD s/p CABG Continue Plavix, rosuvastatin and Eliquis #HTN Continue metoprolol #Chronic anemia Hgb: 11.9. Baseline 11's-12's #Hypothyroidism On Synthroid-continue #GERD #Hiatal Hernia Continue Protonix #HLD Continue rosuvastatin #Depression #Anxiety Continue home buspirone #Insomnia On trazodone, melatonin DVT Prophylaxis On Eliquis Dispositionawaiting rehab placement Please note the above document was generated using voice recognition software. It may contain grammatical, syntax or spelling errors. Any formal questions or concerns about the content, text or information contained within the body of t his dictation should be directly addressed to the provider for clarification Admission and Anticipated Discharge Date Admission Date: November 24, 2024 Subjective no significant events overnight Review of Systems Review of Systems: All systems reviewed & are unremarkable except as noted in Subjective Physical Exam Physical Exam: Constitutional: WD/WN, vitals as above, NAD, sitting up in bed, pleasant, conversing easily Respiratory: normal respiratory effort, lungs clear to auscultation, no wheeze, rales, rhonchi. Normal insp/exp effort, no accessory muscle use Cardiovascular: RRR, no murmur, no edema Vessels: no JVD or carotid bruit Chest: normal inspection of chest Abdomen: normal bowel sounds, soft, nontender, no hepatosplenomegaly Musculoskeletal: no cyanosis or clubbing, extremities motor strength 5/5 Skin: no rashes, warm and dry normal turgor Neurologic: PERRL, EOMI, accommodation nl, no face palsy, no dysarthria CN's II- XI intact bilaterally and moves all extremities Results & Data Results & Data Vital Signs (Past 12 Hours) Vital Signs Temp Pulse Resp BP Pulse Ox O2 Del Method O2 Del Method 12/01/24 08:05 36.5 C 70 20 106/70 99 Room Air 12/01/24 01:47 Room Air (4) Hypertension Hypertension type: unspecified Qualified Code(s): I10 - Essential (primary) hypertension
--- NOTE | 2024-12-02 11:26 | Hospitalist Progress Note ---
Date of Service December 02, 2024 Assessment & Plan (1) SOB (shortness of breath): (2) Tachy-ramez syndrome: (3) Permanent atrial fibrillation: (4) Hypertension: (5) Chronic heart failure with preserved ejection fraction (HFpEF): (6) Chronic kidney disease stage 3: Plan: Patient is 86 year old female with PMH CAD s/p CABG, permanent a-fib, anticoagulated on Eliquis, Tachybrady syndrome s/p pacemaker, chronic diastolic CHF, hypothyroidism, history of hypercalcemia, hiatal hernia, thoracic aortic ectasia, HTN, mild-moderate aortic stenosis, GERD, depression, anxiety, persistent insomnia, mixed incontinence urge and stress, history of gastric ulcer, cognitive impairment presented to ER with c/o intermittent SOB. #SOB -Negative influenza, RSV, SARS-CoV-2 PCR. BNP: 359. No leukocytosis, no hypoxia -CXR: Stable moderate cardiomegaly without pulmonary vascular congestion. There is stable mild scarring or atelectasis at the left lung base. No new consolidation or pleural effusion. No pneumothorax. -CTA Chest: No pulmonary emboli identified. Trace pleural effusions with mild bibasilar atelectasis. -Clinically there does not appear to be any acute issue causing her SOB -Her SOB is likely multifactorial due to her many cardiac issues, deconditioning, anxiety #KIM-resolved Creatinine up trended from baseline two 1.7 from 1.07 on admission Likely due to hypotensive episode Entresto discontinued; creatinine back to baseline. Patient was given IV fluids on 11/26 Discussed with cardiology; recommended to hold off on Entresto. #Acute on Chronic HFpEF resolved with iv lasix #Mild-Moderate Aortic Stenosis 11/14/2024 echo: EF: 55-60%, left atrium moderately dilated, right atrium moderately dilated, mild aortic regurgitation, mild pulmonic valvular regurgitation, moderate mitral regurgitation, moderate-severe tricuspid regurgitation, mild-moderate aortic stenosis BNp at baseline and does not look overloaded Cardiology was consulted and patient was started on metoprolol, Entresto. Amlodipine was discontinued. However, patient's blood pressure dropped down to SBP of 90s. Entresto was discontinued. Will continue metoprolol for now. #Tachy-ramez syndrome S/P pacemaker on 11/14/2024, and had subsequent left-sided pneumothorax requiring chest tube. Pacemaker interrogation #Permanent atrial fibrillation Continue Eliquis, metoprolol succinate #History of CAD s/p CABG Continue Plavix, rosuvastatin and Eliquis #HTN Continue metoprolol #Chronic anemia Hgb: 11.9. Baseline 11's-12's #Hypothyroidism On Synthroid-continue #GERD #Hiatal Hernia Continue Protonix #HLD Continue rosuvastatin #Depression #Anxiety Continue home buspirone #Insomnia On trazodone, melatonin DVT Prophylaxis On Eliquis Dispositionawaiting rehab placement Please note the above document was generated using voice recognition software. It may contain grammatical, syntax or spelling errors. Any formal questions or concerns about the content, text or information contained within the body of this dictation should be directly addressed to the provider for clarification Admission and Anticipated Discharge Date Admission Date: November 24, 2024 Subjective Patient seen and examined at bedside. She is comfortable; denies any pain or discomfort. No significant events overnight Review of Systems Review of Systems: All systems reviewed & are unremarkable except as noted in Subjective Physical Exam Physical Exam: Constitutional: WD/WN, vitals as above, NAD, sitting up in bed, pleasant, conversing easily Respiratory: normal respiratory effort, lungs clear to auscultation, no wheeze, rales, rhonchi. Normal insp/exp effort, no accessory muscle use Cardiovascular: RRR, no murmur, no edema Vessels: no JVD or carotid bruit Chest: normal inspection of chest Abdomen: normal bowel sounds, soft, nontender, no hepatosplenomegaly Musculoskeletal: no cyanosis or clubbing, extremities motor strength 5/5 Skin: no rashes, warm and dry normal turgor Neurologic: PERRL, EOMI, accommodation nl, no face palsy, no dysarthria CN's II- XI intact bilaterally and moves all extremities Results & Data Results & Data Vital Signs (Past 12 Hours) Vital Signs Temp Pulse Resp BP Pulse Ox Pulse Ox O2 Del Method 12/02/24 07:30 36.6 C 70 14 117/71 95 Room Air 12/02/24 01:00 94 12/01/24 23:32 36.5 C 68 18 157/83 H 98 Room Air O2 Del Method 12/02/24 07:30 12/02/24 01:00 Room Air 12/01/24 23:32 (4) Hypertension Hypertension type: unspecified Qualified Code(s): I10 - Essential (primary) hypertension
[2024-12-02] MEDS: LORazepam 0.5 MG TAB PO STA (22:24)
[2024-12-02 23:07] VITALS: RESP 16
[2024-12-03 09:47] VITALS: BP 111/74; PULSE 71; TEMP 97.7; O2SAT 97
--- NOTE | 2024-12-03 12:13 | Discharge Summary ---
Date of Service December 03, 2024 Admission HPI Per Admitting Provider Patient is 86 year old female with PMH CAD s/p CABG, permanent a-fib, anticoagulated on Eliquis, Tachybrady syndrome s/p pacemaker, chronic diastolic CHF, hypothyroidism, history of hypercalcemia, hiatal hernia, thoracic aortic ectasia, HTN, mild-moderate aortic stenosis, GERD, depression, anxiety, persistent insomnia, mixed incontinence urge and stress, history of gastric ulcer, cognitive impairment presented to ER with c/o SOB. Per inpatient chart review patient with recurrent hospitalizations this year for reported shortness of breath and chest pain. Per inpatient chart review most recent hospitalization 11/10/24-11/18/2024 for shortness of breath that was thought possible from uncontrolled hypertension, secondary to cognitive impairment and missing home medications and possible anxiety and was also found to have tachybrady syndrome S/P pacemaker on 11/14/2024, and had subsequent left-sided pneumothorax requiring chest tube. Patient reports still has intermittent SOB. She denies any chest pain. She re ports past 3 nights hasn't slept. She states was up walking around this morning at 4am when she had increased SOB. States SOB seemed to improve when she sat down but states then would start again. She reports SOB has been intermittent all morning and denies any associated CP with this. She states on the days she does sleep she has been waking up in the mornings feeling very anxious and this has been ongoing for past week. She states has been taking her pulse at home and reports in 60-70s mostly but does notice goes to 92 when she is feeling anxious and at times when she is feeling SOB. Denies palpitation sensation. Denies dizziness or syncope. She states she has forgotten to take her medications for past 4 days but thinks she took her morning medications today. She said its unlike her to forget her medications however per chart review seems there have been ongoing concerns with patient's ability to manage her home medications. She feels her legs are swollen for past 6 weeks and denies any changes. Patient states she doesn't think she has eaten for 4 days. Denies fever/chills, diaphoresis, N/V/D/C, COLBERT, dizziness, syncope, vision changes, neck pain, CP, orthopnea, palpitations, cough, sore throat, rhinorrhea, abdominal pain, paresthesias, extremity weakness, rashes, dysuria, hematuria. Per inpatient and outpatient chart review there are concerns with patient's cognitive status and inability to manage her home medications. Epic Phone encounter From 11/20/2024 reporting that patient confused about medications and RN called her pharmacy to speak to pharmacist and it is reported while she was on the phone that patient was calling again. It is reported patient has an aide Sunday through Sunday 10 AM to 3 PM. Per aide patient had several different pill packs and some had medications and some did not and patient was unable to find most recent delivered pill packs. Patient states that she hasn't had an aide since her last hospitalization. Per phone encounter RN reported left a message for office of aging regarding concerns about patient. Admission Exam Per Admitting Provider General: no distress, WDWN Head: normocephalic, atraumatic Eyes: conjunctiva non-injected, anicteric ENT: normal inspection external ears, nose, mucous membranes moist Neck: supple, trachea midline, non-tender Lungs: clear, no respiratory distress, no wheezing/rhonchi/rales CV: RRR, no JVD, no pitting pretibial edema Abd: normal BS, soft, non-tender Ext: no cyanosis, no calf tenderness Neuro: Alert, oriented to person, place, forgetful with date. Does seem forgetful throughout conversation, no focal deficits noted, normal affect Skin: warm, dry Principal Diagnosis Shortness of breath, Acute on chronic heart failure with preserved ejection fraction Acute kidney injury Discharge Exam Constitutional: WD/WN, vitals as above, NAD, sitting up in bed, pleasant, conversing easily Respiratory: normal respiratory effort, lungs clear to auscultation, no wheeze, rales, rhonchi. Normal insp/exp effort, no accessory muscle use Cardiovascular: RRR, no murmur, no edema Vessels: no JVD or carotid bruit Chest: normal inspection of chest Abdomen: normal bowel sounds, soft, nontender, no hepatosplenomegaly Musculoskeletal: no cyanosis or clubbing, extremities motor strength 5/5 Skin: no rashes, warm and dry normal turgor Neurologic: PERRL, EOMI, accommodation nl, no face palsy, no dysarthria CN's II- XI intact bilaterally and moves all extremities Discharge Data Allergies Allergy/AdvReac Type Severity Reaction Status Date / Time nitroglycerin AdvReac Severe "PROJECTILE Verified 11/10/24 19:53 VOMITTING" ergotamine AdvReac Intermediate vomiting Verified 11/10/24 19:53 Consultations 11/24/24 12:53 ED Decision to Admit Stat 11/24/24 20:47 Consult Cardiology Routine Ordered Studies 11/24/24 09:57 CT angio chest PE protocol Stat 11/26/24 14:00 CT head/brain wo con Urgent Hospital Course (1) SOB (shortness of breath): (2) Tachy-ramez syndrome: (3) Permanent atrial fibrillation: (4) Hypertension: (5) Chronic heart failure with preserved ejection fraction (HFpEF): (6) Chronic kidney disease stage 3: Per prior attending with addendum: Patient is 86 year old female with PMH CAD s/p CABG, permanent a-fib, anticoagulated on Eliquis, Tachybrady syndrome s/p pacemaker, chronic diastolic CHF, hypothyroidism, history of hypercalcemia, hiatal hernia, thoracic aortic ectasia, HTN, mild-moderate aortic stenosis, GERD, depression, anxiety, persistent insomnia, mixed incontinence urge and stress, history of gastric ulcer, cognitive impairment presented to ER with c/o intermittent SOB. #SOB -Negative influenza, RSV, SARS-CoV-2 PCR. BNP: 359. No leukocytosis, no hypoxia -CXR: Stable moderate cardiomegaly without pulmonary vascular congestion. There is stable mild scarring or atelectasis at the left lung base. No new consolidation or pleural effusion. No pneumothorax. -CTA Chest: No pulmonary emboli identified. Trace pleural effusions with mild bibasilar atelectasis. -Clinically there does not appear to be any acute issue causing her SOB -Her SOB is likely multifactorial due to her many cardiac issues, deconditioning, anxiety #KIM-resolved Creatinine up trended from baseline two 1.7 from 1.07 on admission Likely due to hypotensive episode Entresto discontinued; creatinine back to baseline. Patient was given IV fluids on 11/26 Discussed with cardiology; recommended to hold off on Entresto. #Acute on Chronic HFpEF resolved with iv lasix #Mild-Moderate Aortic Stenosis 11/14/2024 echo: EF: 55-60%, left atrium moderately dilated, right atrium moderately dilated, mild aortic regurgitation, mild pulmonic valvular regurgitation, moderate mitral regurgitation, moderate-severe tricuspid regurgitation, mild-moderate aortic stenosis BNp at baseline and does not look overloaded Cardiology was consulted and patient was started on metoprolol, Entresto. Amlodipine was discontinued. However, patient's blood pressure dropped down to SBP of 90s. Entresto was discontinued. Will continue metoprolol for now. #Tachy-ramez syndrome S/P pacemaker on 11/14/2024, and had subsequent left-sided pneumothorax requiring chest tube. Pacemaker interrogation #Permanent atrial fibrillation Continue Eliquis, metoprolol succinate #History of CAD s/p CABG Continue Plavix, rosuvastatin and Eliquis #HTN Continue metoprolol #Chronic anemia Hgb: 11.9. Baseline 11's-12's #Hypothyroidism On Synthroid-continue #GERD #Hiatal Hernia Continue Protonix #HLD Continue rosuvastatin #Depression #Anxiety Continue home buspirone #Insomnia On trazodone, melatonin DVT Prophylaxis On Eliquis Dispositionawaiting rehab placement Addendum 12/03/2024: Patient was seen and examined at bedside as a follow-up follow-up shortness of breath and acute kidney injury. Amlodipine has been discontinued, metoprolol has been upped to twice daily. Patient is hemodynamically stable, patient is being discharged home with home health with following instructions at the point of discharge: Follow-up with your primary care physician within a week time and likely you will need labs CBC/CMP/magnesium/phosphorus. Follow-up with your cardiology 1 to 2 months time upon discharge. Take your medications as prescribed. Please make sure that you are able to get your medications today by calling your pharmacy before you leave the hospital so that your treatment continuity is not broken. Please note the above document was generated using voice recognition software. It may contain grammatical, syntax or spelling errors. Any formal questions or concerns about the content, text or information contained within the body of this dictation should be directly addressed to the provider for clarification Home Health Attestation I certify that this patient is under my care and that I, or a physicians assistant project manager working with me, had a face to-face encounter that meets the home health [id number] encounter requirements with this patient. The encounter with the patient was in whole, or in part, for the following medical condition, which is the primary reason for home health care (list medical condition): SOB I certify that, based on my findings, the following services are medically necessary home health services: My clinical findings support the need for the above services because: PT Assessment for Endurance / Balance / Strength PT Eval for Safety and Mobility PT Eval for Safety, Gait Training, Assistive Devices PT Gait and Balance Training, Strengthening and Safety Skilled Nsg Assessment Further, I certify that my clinical findings support that this patient is homebound (i.e. absences from home require considerable and taxing effort and are for medical reasons or scientology services or infrequently or of short duration when for other reasons) because: Supportive Aid - Walker Certification for Home Health Services: Based on the above findings, I certify that this patient is confined to the home and needs intermittent long-term care, physical therapy and/or speech therapy or continues to need occupational therapy. The patient is under my care, and I have initiated the establishment of the plan of care. This patient will be followed by a physician who will periodically review the plan of care. Total Time Total Time Spent Total Time Spent (In Minutes): 35 Discharge Plan Discharge Items Patient Disposition: Home - Home Health Services Reason For Visit: SOB Discharge Diagnosis: Shortness of breath, Acute on chronic heart failure with preserved ejection fraction Acute kidney injury Condition on Discharge: Fair Activity: Resume your previous activity Non-emergency contact: Primary Care Provider Call non-emergency contact if: you have any medication questions and your symptoms worsen Follow-up/Referrals: Gilbert Calloway MD [Primary Care Provider] - Diet: Heart Healthy Addtl Attending Provider Instructions: Follow-up with your primary care physician within a week time and likely you will need labs CBC/CMP/magnesium/phosphorus. Follow-up with your cardiology 1 to 2 months time upon discharge. Take your medications as prescribed. Please make sure that you are able to get your medications today by calling your pharmacy before you leave the hospital so that your treatment continuity is not broken. Pending Studies at Discharge: No Stand-Alone Forms: My [facility] revoPT, Smoking Cessation Medications and DC Order Prescriptions: Continued levothyroxine [Synthroid] 75 mcg Tablet 75 mcg PO DAILYBB Qty: 30 0RF Eliquis 2.5 mg Tablet 2.5 mg PO BID Qty: 60 0RF melatonin 10 mg capsule 10 mg PO HS Qty: 30 0RF pantoprazole 40 mg tablet,delayed release (DR/EC) 40 mg PO AMHS calcitriol 0.25 mcg capsule 0.25 mcg PO 3XWK Rx Instructions: MONDAYS,WEDNESDAYS,FRIDAYS rosuvastatin 10 mg tablet 10 mg PO HS trazodone 100 mg tablet 100 mg PO HS gabapentin 100 mg capsule 100 mg PO BID acetaminophen 500 mg Tablet 500 mg PO TID PRN (Reason: Pain) clopidogrel 75 mg Tablet 75 mg PO QAM ferrous sulfate [FeroSul] 325 mg (65 mg iron) Tablet 325 mg PO DAILY buspirone 15 mg tablet 15 mg PO BID Changed metoprolol succinate 25 mg Tablet Extended Release 24 Hr 25 mg PO BID Qty: 60 0RF Discontinued amlodipine [Norvasc] 5 mg Tablet 5 mg PO QAM Qty: 30 0RF Discharge Orders: Discharge Order (Routine); Ordered 12/03/24 Ordered By: Catalina Yadav/Other Patient Handouts: Heart Failure Dc Admission Data Admit Date/Time: 11/24/24 13:21 Attending Provider: Catalina Mendoza Admit Provider: Giuseppe May Primary Care Provider: Gilbert Calloway Other Providers: Tory,Home Health; Giuseppe May; Reece Drew [facility] Other Interventions: Discharge Summary Assessment (RN) Last Done: 12/03/24 12:05
== END 2024-12-03 13:11 | disposition home health service (06) | DRG 291 ==
LOC: ED 09:09 → SUATTDRO 13:21 → 2S 13:21 → 2N 11-25 08:16 → 3N 11-28 18:36

== ENCOUNTER 2024-12-04 17:52 | Inpatient (IN) ==
[2024-12-04 19:16] LABS: Hematocrit (blood only) 39.0 % (37.0-47.0); Hemoglobin 12.9 g/dl (12.0-16.0); Immature Granulocytes # (auto) 0.02 K/uL (0.01-0.20); Immature Granulocytes % (auto) 0.3 %; Mean Corpuscular Hemoglobin 29.7 pg (25.0-34.0); Mean Corpuscular Volume 89.7 fL (80.0-100.0); Platelet Count 152 K/uL (130-400); RDW Standard Deviation 43.7 fL (36.4-46.3); Red Blood Count 4.35 M/uL (4.20-5.40); White Blood Count 6.41 K/ul (4.8-10.8)
[2024-12-04 19:32] LABS: Anion Gap 10.0 (3-11); Blood Urea Nitrogen 24.0 mg/dl (6-23); Calcium 10.5 mg/dl (8.6-10.3); Carbon Dioxide 20.0 mmol/L (21-32); Chloride 108.0 mmol/L (98-107); Creatinine Clr Calc Pharmacy 31.6 ml/min; Glucose 88.0 mg/dl (70-99(Fasting)); Lipase 30.0 U/L (11-82); Potassium 3.8 mmol/L (3.5-5.1); Sodium 138.0 mmol/L (136-145)
--- NOTE | 2024-12-04 20:03 | XRay Report ---
EXAM: X-ray chest one-view portable CLINICAL HISTORY: Chest pain PRIORS: 11/24/2024 TECHNIQUE: Frontal view chest FINDINGS: Median sternotomy wires noted. Left-sided cardiac device noted with single lead, unchanged. Bilateral total shoulder arthroplasties present. The chest is well-expanded. Moderate atherosclerotic disease of the aortic knob. No airspace consolidation, effusion or congestive changes. Cardiac silhouette mildly enlarged, unchanged. No pneumothorax. Trachea is patent. Osseous structures demonstrate no acute abnormality. No radiopaque foreign body. IMPRESSION: No plain film evidence of an acute cardiopulmonary process. Electronically signed by Katherine Abraham 12-04-2024 8:03 PM
[2024-12-04 20:35] LABS: INR 1.1 (0.9-1.1); Prothrombin Time 11.8 Seconds (9.0-12.0)
[2024-12-04 20:38] LABS: Partial Thromboplastin Time < 20 Seconds (21-31)
--- NOTE | 2024-12-04 21:16 | History & Physical Report ---
Date of Service December 04, 2024 Assessment & Plan (1) Asymptomatic hypertensive urgency: Plan: Assessment and plan below following discussion of case with ED provider and reviewing patient history/pertinent normal/abnormal diagnostic test results. Hypertensive urgency from discomfort from shingles rash chronic diastolic heart failure (EF 60 to 65%, TTE 2024), euvolemic to dry valvular heart disease (moderate to severe TR, moderate /MR, mild MR/MS) CAD status post CABG SSS status post PPM on Eliquis, paced rhythm ascending aorta dilatation hyperlipidemia, on statin Rx hx CVA meningioma mild dementia, patient currently mentating well. hypothyroidism, euthyroid as of last month's TSH Hypercalcemia secondary to primary hyperparathyroidism anxiety/mood disorder, at baseline past tobacco abuse OBS Admit to med/tele IV Lopressor 1 dose now Analgesia for shingles rash Continue home gabapentin course Valtrex course recheck serum calcium level after NSS Outpatient endocrinology consultation for primary hyperparathyroidism PT OT eval DVT prophylaxis. Eliquis Full code Patient requests for brother to be given updates regarding care. Mr. Matt Boles, contact #[phone]. Text document was generated using [employer] voice recognition software. It may contain grammatical or spelling errors. Kindly contact undersigned for clarification of any documentation item in question. History of Present Illness Chief Complaint: I looked short of breath as per patient Primary Care Provider: Gilbert Calloway MD History obtained from patient and records. Medical history significant for chronic diastolic heart failure (EF 60 to 65%, TTE 2024), valvular heart disease (moderate to severe TR, moderate /MR, mild MR/MS), CAD status post CABG, SSS status post PPM on Eliquis, ascending aorta dilatation, hypertension, hyperlipidemia, CVA, meningioma, mild dementia, hypothyroidism, hyperparathyroidism as per records, anxiety/mood disorder, past tobacco abuse. Monthly confinements since October 2024. Recent confinement November 24 to 2024 for decompensated heart failure. Rehab recommended following PT OT evaluation. [facility] rehab stay denied by insurance as per case management note. Patient discharged home yesterday with home health services. Patient sent to ER today because she looked short of breath to home health. Patient denies chest pain, cough or unusual shortness of breath. Patient discharged back to home. Patient sent back to ER because of chest pain complaints as per ED provider. Burning pruritic rash noted on patient's chest. No fever, no chills. Patient denies SOB. Highest SBP currently 170s. 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 Allergies Allergy/AdvReac Type Severity Reaction Status Date / Time nitroglycerin AdvReac Severe "PROJECTILE Verified 11/10/24 19:53 VOMITTING" ergotamine AdvReac Intermediate vomiting Verified 11/10/24 19:53 Home Medications Medication Instructions Recorded Confirmed Type apixaban 2.5 mg tablet (Eliquis) 2.5 mg PO BID #60 tabs 05/21/24 12/04/24 Rx levothyroxine 75 mcg tablet 75 mcg PO DAILYBB #30 tabs 05/21/24 12/04/24 Rx (Synthroid) melatonin 10 mg capsule 10 mg PO HS #30 caps 05/21/24 12/04/24 Rx calcitriol 0.25 mcg capsule 0.25 mcg PO 3XWK 07/16/24 12/04/24 History pantoprazole 40 mg tablet,delayed 40 mg PO AMHS 07/16/24 12/04/24 History release rosuvastatin 10 mg tablet 10 mg PO HS 07/16/24 12/04/24 History acetaminophen 500 mg tablet 500 mg PO TID PRN Pain 08/21/24 12/04/24 History clopidogrel 75 mg tablet 75 mg PO QAM 08/21/24 12/04/24 History buspirone 15 mg tablet 15 mg PO BID 11/02/24 12/04/24 History ferrous sulfate 325 mg (65 mg 325 mg PO DAILY 11/02/24 12/04/24 History iron) tablet (FeroSul) gabapentin 100 mg capsule 100 mg PO BID 11/24/24 12/04/24 History trazodone 100 mg tablet 100 mg PO HS 11/24/24 12/04/24 History metoprolol succinate 25 mg 25 mg PO BID #60 tabs 12/03/24 12/04/24 Rx tablet,extended release 24 hr bacitracin zinc 500 unit/gram 1 applic topical BID PRN rash #14 12/04/24 12/04/24 Rx topical ointment grams Past Med/Surg History Problem List (Updated 12/05/24 @ 09:55 by Ilia Bullard MD) Asymptomatic hypertensive urgency Chest pain (Acute) Shortness of breath (Acute) Presence of permanent cardiac pacemaker Elevated brain natriuretic peptide (BNP) level (Acute) SOB (shortness of breath) (Acute) BROUSSARD (dyspnea on exertion) (Acute) Chest pain Cardiac pacemaker in situ Pneumothorax, left Atrial fibrillation with slow ventricular response Diastolic congestive heart failure Aortic stenosis ASCVD (arteriosclerotic cardiovascular disease) Tachy-ramez syndrome Permanent atrial fibrillation Rash (Acute) Nonadherence to medication (Acute) SOB (shortness of breath) (Acute) Hypertension (Acute) Acute confusion (Acute) Chronic kidney disease stage 3 Unable to care for self Dementia Stroke-like symptoms Alzheimer's dementia with anxiety Hypertension (Acute) Chronic atrial fibrillation CAD (coronary artery disease) Anticoagulant long-term use Chronic heart failure with preserved ejection fraction (HFpEF) Hypothyroidism GERD (gastroesophageal reflux disease) (Chronic) Depression with anxiety (Acute) Insomnia (Acute) Medical History Moderate dementia with anxiety Depression Arthritis Ambulatory dysfunction Generalized anxiety disorder Arthritis of right shoulder region Syncope and collapse Urinary incontinence Primary osteoarthritis, right shoulder DJD of left shoulder Chronic osteoarthritis Greater trochanteric bursitis of right hip Acute on chronic heart failure with preserved ejection fraction (HFpEF) KIM (acute kidney injury) Chest pain, atypical Sinus pause Labile hypertension Paroxysmal A-fib Precordial chest pain Hypercalcemia Hyperparathyroidism Sepsis due to pneumonia Pneumonia Acute on chronic diastolic CHF (congestive heart failure) Hypomagnesemia Hypophosphatemia History of coronary artery disease Precordial chest pain SOB (shortness of breath) Weakness Elevated troponin Costochondritis Confusion Acute alteration in mental status Ascending aorta dilation SOB (shortness of breath) Hypertension Asymptomatic bradycardia Acute renal failure superimposed on stage 3 chronic kidney disease Anemia, chronic disease Intractable nausea Problems related to lack of adequate sleep Delirium due to another medical condition, acute, hyperactive Mild cognitive impairment Iron deficiency anemia Hiatal hernia with GERD and esophagitis Hypertension, uncontrolled Shortness of breath Acute UTI Chronic diastolic CHF (congestive heart failure) Breathlessness Atypical chest pain Acute on chronic heart failure with preserved ejection fraction BROUSSARD (dyspnea on exertion) Sleep-wake cycle disorder Mobitz type 1 second degree AV block (10/2023) Somatic dysfunction of sacroiliac joint History of blood transfusion 2012 2/2 GASTRIC ULCER History of gastric ulcer 2012 Spinal stenosis Gastric ulcer Atrial fibrillation with rapid ventricular response (11/2022) Fall Moderate mitral regurgitation Transient ischemic attack (TIA) ~2012>REASON FOR PLAVIX Osteoarthritis Chronic back pain Dyslipidemia Hypertension Surgical History 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 History of cardiac cath NO STENTS History of coronary artery bypass graft 1998 (1 VESSEL) S/P epidural steroid injection History of esophagogastroduodenoscopy (EGD) S/p reverse total shoulder arthroplasty RT/LEFT History of abdominoplasty PANNICULECTOMY History of colonoscopy History of arthroplasty of right hip History of arthroplasty of left hip History of hysterectomy with oophorectomy History of arthroplasty of left shoulder History of tonsillectomy and adenoidectomy H/O bilateral salpingo-oophorectomy with hyter Family History Father , age 74 Allergic reaction Mother , 80s CHF (congestive heart failure) Other No family history of adverse response to anesthesia Social History Smoking Status: Never smoker Second Hand Exposure: No; Do You Dip or Chew Tobacco: No; Hx Alcohol Use: No Hx Substance Use: No Preferred Language: Urdu Communication Ability: Effective Visual Impairment: No Limitations Center Machine Set Up Operator Required: No Beliefs That Will Affect Care: None marital status: Single Current Living Situation: Alone Current Living Situation Comment: Independent living at [facility] How many Children do You have: 0 Other Information That Helps Us Care for You: No Feels Safe at Home: Yes Safety Concerns: Feels Safe At This Time Assistive Devices: Glasses Review of Systems Review of Systems: As per HPI, all other systems reviewed and negative Physical Exam Physical Exam: GENERAL: Comfortable, slightly anxious, no respiratory distress SKIN: Normal color, warm HEENT: [place] palpebral conjunctivae, no ptosis, dry buccal mucosa NECK : Supple, no tenderness CHEST : Scaling rash over upper sternal with minimal tenderness, CTA HEART : RRR, systolic murmur ABDOMEN: Some distention, nontender EXTREMITIES : Minimal LE LE swelling, no LE tenderness, palpable pulses, no other conspicuous deformities noted NEUROLOGIC : Coherent, no facial asymmetry, no other gross focality Results & Data Results & Data Vital Signs (Past 12 Hours) Vital Signs Temp Pulse Pulse Resp BP BP Pulse Ox 12/04/24 20:01 72 19 176/89 H 96 12/04/24 18:30 70 17 150/117 H 100 12/04/24 18:18 66 12/04/24 18:07 99 12/04/24 17:42 36.8 C 65 18 170/100 H 99 12/04/24 17:42 12/04/24 17:42 36.8 C 73 18 170/100 H 100 O2 Del Method 12/04/24 20:01 12/04/24 18:30 12/04/24 18:18 12/04/24 18:07 Room Air 12/04/24 17:42 Room Air 12/04/24 17:42 Room Air 12/04/24 17:42 Room Air Laboratory Results Laboratory Results WBC 6.41 K/ul (4.8-10.8) 12/04/24 18:55 RBC 4.35 M/uL (4.20-5.40) 12/04/24 18:55 Hgb 12.9 g/dl (12.0-16.0) 12/04/24 18:55 Hct 39.0 % (37.0-47.0) 12/04/24 18:55 MCV 89.7 fL (80.0-100.0) 12/04/24 18:55 MCH 29.7 pg (25.0-34.0) 12/04/24 18:55 MCHC 33.1 g/dL (32.0-36.0) 12/04/24 18:55 RDW Std Deviation 43.7 fL (36.4-46.3) 12/04/24 18:55 RDW Coeff of Howie 13.4 % (11.5-14.5) 12/04/24 18:55 Plt Count 152 K/uL (130-400) 12/04/24 18:55 MPV 10.0 fL (9.4-12.4) 12/04/24 18:55 Immature Gran % (Auto) 0.3 % 12/04/24 18:55 Neut % (Auto) 45.3 % 12/04/24 18:55 Lymph % (Auto) 40.7 % 12/04/24 18:55 [place] % (Auto) 10.1 % 12/04/24 18:55 Eos % (Auto) 2.8 % 12/04/24 18:55 Baso % (Auto) 0.8 % 12/04/24 18:55 Neut # (Auto) 2.90 K/uL (1.40-6.50) 12/04/24 18:55 Lymph # (Auto) 2.61 K/uL (1.20-3.40) 12/04/24 18:55 [place] # (Auto) 0.65 K/uL (0.11-0.59) H 12/04/24 18:55 Eos # (Auto) 0.18 K/uL (0.00-0.50) 12/04/24 18:55 Baso # (Auto) 0.05 K/uL (0.00-0.20) 12/04/24 18:55 Immature Gran # (Auto) 0.02 K/uL (0.01-0.20) 12/04/24 18:55 PT 11.8 Seconds (9.0-12.0) 12/04/24 18:55 INR 1.1 (0.9-1.1) 12/04/24 18:55 APTT < 20 Seconds (21-31) L 12/04/24 18:55 PTT Ratio < 0.7 12/04/24 18:55 Sodium 138 mmol/L (136-145) 12/04/24 18:55 Potassium 3.8 mmol/L (3.5-5.1) 12/04/24 18:55 Chloride 108 mmol/L (98-107) H 12/04/24 18:55 Carbon Dioxide 20 mmol/L (21-32) L 12/04/24 18:55 Anion Gap 10 (3-11) 12/04/24 18:55 BUN 24 mg/dl (6-23) H 12/04/24 18:55 Creatinine 1.12 mg/dl (0.6-1.2) 12/04/24 18:55 Est Cr Clr Drug Dosing 31.6 ml/min 12/04/24 18:55 eGFR 47.30 12/04/24 18:55 BUN/Creatinine Ratio 21.4 (10-20) H 12/04/24 18:55 Glucose 88 mg/dl (70-99(Fasting)) 12/04/24 18:55 Calcium 10.5 mg/dl (8.6-10.3) H 12/04/24 18:55 Troponin I High Sens 10.2 pg/ml (0-14) 12/04/24 18:55 Lipase 30 U/L (11-82) 12/04/24 18:55 Impressions Chest X-Ray 12/04/24 18:07 EXAM: X-ray chest one-view portable CLINICAL HISTORY: Chest pain PRIORS: 11/24/2024 TECHNIQUE: Frontal view chest FINDINGS: Median sternotomy wires noted. Left-sided cardiac device noted with single lead, unchanged. Bilateral total shoulder arthroplasties present. The chest is well-expanded. Moderate atherosclerotic disease of the aortic knob. No airspace consolidation, effusion or congestive changes. Cardiac silhouette mildly enlarged, unchanged. No pneumothorax. Trachea is patent. Osseous structures demonstrate no acute abnormality. No radiopaque foreign body. IMPRESSION: No plain film evidence of an acute cardiopulmonary process. Electronically signed by Katherine Abraham 12-04-2024 8:03 PM Diagnostic Findings EKG as per my interpretation :Rate 70, paced rhythm
[2024-12-04] MEDS ORDERED: MELATONIN 3 MG TAB PO PRN (21:34)
[2024-12-04] MEDS: busPIRone 15 MG TAB PO STA (22:11)
[2024-12-04] MEDS: METOPROLOL TARTRATE 1 MG/ML VIAL IV STA (22:11)
[2024-12-04] MEDS: LORATADINE 10 MG TAB PO ONE (22:11)
[2024-12-04] MEDS: GABAPENTIN 100 MG CAP PO STA (22:11)
[2024-12-04] MEDS: APIXABAN 2.5 MG TAB PO STA (22:12)
[2024-12-04] MEDS: SODIUM CHLORIDE 0.9% 1,000 ML IV ONE (22:12)
--- NOTE | 2024-12-04 22:35 | Emergency Department Note ---
History of Present Illness General Chief Complaint: Chest Pain Stated Complaint: SOB, SHINGLES Time Seen by Provider: 12/04/24 18:07 History of Present Illness Provider Complaint: chest pain Onset (ago): day(s) 1 Onset: awoke with symptoms Pain Location: substernal Maximum Pain Intensity: 7 Quality: + aching and + sharp Relieved By: + nothing Exacerbated By: + nothing Context: no recent travel or no trauma/injury Associated symptoms: + dyspnea; no palpitations Home Medications Medication Instructions Recorded Confirmed Type apixaban 2.5 mg tablet (Eliquis) 2.5 mg PO BID #60 tabs 05/21/24 12/04/24 Rx levothyroxine 75 mcg tablet 75 mcg PO DAILYBB #30 tabs 05/21/24 12/04/24 Rx (Synthroid) melatonin 10 mg capsule 10 mg PO HS #30 caps 05/21/24 12/04/24 Rx calcitriol 0.25 mcg capsule 0.25 mcg PO 3XWK 07/16/24 12/04/24 History pantoprazole 40 mg tablet,delayed 40 mg PO AMHS 07/16/24 12/04/24 History release rosuvastatin 10 mg tablet 10 mg PO HS 07/16/24 12/04/24 History acetaminophen 500 mg tablet 500 mg PO TID PRN Pain 08/21/24 12/04/24 History clopidogrel 75 mg tablet 75 mg PO QAM 08/21/24 12/04/24 History buspirone 15 mg tablet 15 mg PO BID 11/02/24 12/04/24 History ferrous sulfate 325 mg (65 mg 325 mg PO DAILY 11/02/24 12/04/24 History iron) tablet (FeroSul) gabapentin 100 mg capsule 100 mg PO BID 11/24/24 12/04/24 History trazodone 100 mg tablet 100 mg PO HS 11/24/24 12/04/24 History metoprolol succinate 25 mg 25 mg PO BID #60 tabs 12/03/24 12/04/24 Rx tablet,extended release 24 hr bacitracin zinc 500 unit/gram 1 applic topical BID PRN rash #14 12/04/24 12/04/24 Rx topical ointment grams Allergies Allergy/AdvReac Type Severity Reaction Status Date / Time nitroglycerin AdvReac Severe "PROJECTILE Verified 11/10/24 19:53 VOMITTING" ergotamine AdvReac Intermediate vomiting Verified 11/10/24 19:53 Past Med/Surg History Problem List (Updated 12/04/24 @ 23:24 by Suresh Paige MD) Chest pain (Acute) Shortness of breath (Acute) Presence of permanent cardiac pacemaker Elevated brain natriuretic peptide (BNP) level (Acute) SOB (shortness of breath) (Acute) BROUSSARD (dyspnea on exertion) (Acute) Chest pain Cardiac pacemaker in situ Pneumothorax, left Atrial fibrillation with slow ventricular response Diastolic congestive heart failure Aortic stenosis ASCVD (arteriosclerotic cardiovascular disease) Tachy-ramez syndrome Permanent atrial fibrillation Rash (Acute) Nonadherence to medication (Acute) SOB (shortness of breath) (Acute) Hypertension (Acute) Acute confusion (Acute) Chronic kidney disease stage 3 Unable to care for self Dementia Stroke-like symptoms Alzheimer's dementia with anxiety Hypertension (Acute) Chronic atrial fibrillation CAD (coronary artery disease) Anticoagulant long-term use Chronic heart failure with preserved ejection fraction (HFpEF) Hypothyroidism GERD (gastroesophageal reflux disease) (Chronic) Depression with anxiety (Acute) Insomnia (Acute) Medical History Moderate dementia with anxiety Depression Arthritis Ambulatory dysfunction Generalized anxiety disorder Arthritis of right shoulder region Syncope and collapse Urinary incontinence Primary osteoarthritis, right shoulder DJD of left shoulder Chronic osteoarthritis Greater trochanteric bursitis of right hip Acute on chronic heart failure with preserved ejection fraction (HFpEF) KIM (acute kidney injury) Chest pain, atypical Sinus pause Labile hypertension Paroxysmal A-fib Precordial chest pain Hypercalcemia Hyperparathyroidism Sepsis due to pneumonia Pneumonia Acute on chronic diastolic CHF (congestive heart failure) Hypomagnesemia Hypophosphatemia History of coronary artery disease Precordial chest pain SOB (shortness of breath) Weakness Elevated troponin Costochondritis Confusion Acute alteration in mental status Ascending aorta dilation SOB (shortness of breath) Hypertension Asymptomatic bradycardia Acute renal failure superimposed on stage 3 chronic kidney disease Anemia, chronic disease Intractable nausea Problems related to lack of adequate sleep Delirium due to another medical condition, acute, hyperactive Mild cognitive impairment Iron deficiency anemia Hiatal hernia with GERD and esophagitis Hypertension, uncontrolled Shortness of breath Acute UTI Chronic diastolic CHF (congestive heart failure) Breathlessness Atypical chest pain Acute on chronic heart failure with preserved ejection fraction BROUSSARD (dyspnea on exertion) Sleep-wake cycle disorder Mobitz type 1 second degree AV block (10/2023) Somatic dysfunction of sacroiliac joint History of blood transfusion 2012 2/2 GASTRIC ULCER History of gastric ulcer 2012 Spinal stenosis Gastric ulcer Atrial fibrillation with rapid ventricular response (11/2022) Fall Moderate mitral regurgitation Transient ischemic attack (TIA) ~2012>REASON FOR PLAVIX Osteoarthritis Chronic back pain Dyslipidemia Hypertension Surgical History 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 History of cardiac cath NO STENTS History of coronary artery bypass graft 1998 (1 VESSEL) S/P epidural steroid injection History of esophagogastroduodenoscopy (EGD) S/p reverse total shoulder arthroplasty RT/LEFT History of abdominoplasty PANNICULECTOMY History of colonoscopy History of arthroplasty of right hip History of arthroplasty of left hip History of hysterectomy with oophorectomy History of arthroplasty of left shoulder History of tonsillectomy and adenoidectomy H/O bilateral salpingo-oophorectomy with hyter Family History Father , age 74 Allergic reaction Mother , 80s CHF (congestive heart failure) Other No family history of adverse response to anesthesia Social History Smoking Status: Never smoker Second Hand Exposure: No; Do You Dip or Chew Tobacco: No; Hx Alcohol Use: No Hx Substance Use: No Preferred Language: Guamanian Communication Ability: Effective Visual Impairment: No Limitations Director Speech Required: No Beliefs That Will Affect Care: None marital status: Single Current Living Situation: Alone Current Living Situation Comment: Independent apartment at [facility] How many Children do You have: 0 Feels Safe at Home: Yes Assistive Devices: Walker Physical Exam Vital Signs Vital Signs - 24 hr 12/04/24 17:42 12/04/24 17:42 12/04/24 17:42 Temperature 36.8 C 36.8 C Temperature Source Oral Oral Pulse Rate 73 Pulse Rate [Right Brachial] 65 Pulse Rate from SpO2 Sensor Pulse Rhythm Regular Pulse Rhythm [Right Brachial] Regular Pulse Strength Normal Pulse Strength [Right Brachial] Normal Respiratory Rate 18 18 Respiratory Effort / Characteristics Non-Labored Non-Labored Respiratory Depth Normal Normal Respiratory Pattern Regular Regular Blood Pressure 170/100 H Blood Pressure [Right Arm] 170/100 H Blood Pressure Mean 123 Blood Pressure Mean [Right Arm] 123 Blood Pressure Position Lying Blood Pressure Position [Right Arm] Sitting Pulse Oximetry 100 99 Oxygen Delivery Method Room Air Room Air Room Air Sepsis Recent Fever Within 48 Hours No Sepsis New/Unexplained Change in Mental Status N/A Sepsis Action Taken by Nursing No Action Required 12/04/24 18:07 12/04/24 18:18 12/04/24 18:30 Temperature Temperature Source Pulse Rate 66 70 Pulse Rate [Right Brachial] Pulse Rate from SpO2 Sensor 70 Pulse Rhythm Pulse Rhythm [Right Brachial] Pulse Strength Pulse Strength [Right Brachial] Respiratory Rate 17 Respiratory Effort / Characteristics Respiratory Depth Respiratory Pattern Blood Pressure 150/117 H Blood Pressure [Right Arm] Blood Pressure Mean 122 Blood Pressure Mean [Right Arm] Blood Pressure Position Blood Pressure Position [Right Arm] Pulse Oximetry 99 100 Oxygen Delivery Method Room Air Sepsis Recent Fever Within 48 Hours Sepsis New/Unexplained Change in Mental Status Sepsis Action Taken by Nursing 12/04/24 20:01 Temperature Temperature Source Pulse Rate 72 Pulse Rate [Right Brachial] Pulse Rate from SpO2 Sensor Pulse Rhythm Pulse Rhythm [Right Brachial] Pulse Strength Pulse Strength [Right Brachial] Respiratory Rate 19 Respiratory Effort / Characteristics Respiratory Depth Respiratory Pattern Blood Pressure 176/89 H Blood Pressure [Right Arm] Blood Pressure Mean 132 Blood Pressure Mean [Right Arm] Blood Pressure Position Blood Pressure Position [Right Arm] Pulse Oximetry 96 Oxygen Delivery Method Sepsis Recent Fever Within 48 Hours Sepsis New/Unexplained Change in Mental Status Sepsis Action Taken by Nursing Physical Exam CV: Normal rate, regular rhythm, normal heart sounds and intact distal pulses. There is no peripheral edema. Palpable radial pulses bue. PULM/CHEST: Effort normal and breath sounds normal. No respiratory distress. No stridor. no wheezes. no rales. Course Course 180: The patient was evaluated in room . A complete history and physical exam was performed Administered Medications Sodium Chloride (Nss) 1,000 mls @ 60 mls/hr IV .[id number] ONE Stop: 12/05/24 13:56 Last Admin: 12/04/24 22:12 Dose: 60 mls/hr Documented By: SAMIR Trazodone HCl (Trazodone Hcl 100 Mg Tab) 100 mg PO HS YAN Stop: 01/03/25 21:34 Last Admin: 12/04/24 22:11 Dose: 100 mg Documented By: SAMIR Discontinued Medications Apixaban (Apixaban 2.5 Mg Tab) 2.5 mg PO ONE STA Stop: 12/04/24 21:38 Last Admin: 12/04/24 22:12 Dose: 2.5 mg Documented By: SAMIR Buspirone HCl (Buspirone 15 Mg Tab) 15 mg PO ONE STA Stop: 12/04/24 21:40 Last Admin: 12/04/24 22:11 Dose: 15 mg Documented By: SAMIR Gabapentin (Gabapentin 100 Mg Cap) 100 mg PO ONE STA Stop: 12/04/24 21:39 Last Admin: 12/04/24 22:11 Dose: 100 mg Documented By: SAMIR Loratadine (Loratadine 10 Mg Tab) 10 mg PO NOW ONE Stop: 12/04/24 21:17 Last Admin: 12/04/24 22:11 Dose: 10 mg Documented By: SAMIR Metoprolol Tartrate (Metoprolol Tartrate 1 Mg/Ml Vial) 2.5 mg IV NOW STA Stop: 12/04/24 20:51 Last Admin: 12/04/24 22:11 Dose: 2.5 mg Documented By: SAMIR Medical Decision Making Medical Records Attestation: I reviewed the patient's medical records. Medical records narrative: Medical records reviewed. Patient was discharged from the emergency department yesterday after being admitted for 9 days. Patient was seen in the emergency department today and discharged around 4 PM after being seen in the emergency department for shortness of breath. Laboratory Data Attestation: I reviewed the patient's lab results. 12/04/24 18:55 12/04/24 18:55 Labs: Lab Results 12/04/24 Range/Units 18:55 WBC 6.41 (4.8-10.8) K/ul RBC 4.35 (4.20-5.40) M/uL Hgb 12.9 (12.0-16.0) g/dl Hct 39.0 (37.0-47.0) % MCV 89.7 (80.0-100.0) fL MCH 29.7 (25.0-34.0) pg MCHC 33.1 (32.0-36.0) g/dL RDW Std Deviation 43.7 (36.4-46.3) fL RDW Coeff of Howie 13.4 (11.5-14.5) % Plt Count 152 (130-400) K/uL MPV 10.0 (9.4-12.4) fL Immature Gran % (Auto) 0.3 % Neut % (Auto) 45.3 % Lymph % (Auto) 40.7 % [place] % (Auto) 10.1 % Eos % (Auto) 2.8 % Baso % (Auto) 0.8 % Neut # (Auto) 2.90 (1.40-6.50) K/uL Lymph # (Auto) 2.61 (1.20-3.40) K/uL [place] # (Auto) 0.65 H (0.11-0.59) K/uL Eos # (Auto) 0.18 (0.00-0.50) K/uL Baso # (Auto) 0.05 (0.00-0.20) K/uL Immature Gran # (Auto) 0.02 (0.01-0.20) K/uL PT 11.8 (9.0-12.0) Seconds INR 1.1 (0.9-1.1) APTT < 20 L (21-31) Seconds PTT Ratio < 0.7 Sodium 138 (136-145) mmol/L Potassium 3.8 (3.5-5.1) mmol/L Chloride 108 H (98-107) mmol/L Carbon Dioxide 20 L (21-32) mmol/L Anion Gap 10 (3-11) BUN 24 H (6-23) mg/dl Creatinine 1.12 (0.6-1.2) mg/dl Est Cr Clr Drug Dosing 31.6 ml/min eGFR 47.30 BUN/Creatinine Ratio 21.4 H (10-20) Glucose 88 (70-99(Fasting)) mg/dl Calcium 10.5 H (8.6-10.3) mg/dl Phosphorus 2.3 L (2.5-4.9) mg/dl Troponin I High Sens 10.2 (0-14) pg/ml Lipase 30 (11-82) U/L Imaging Data Chest x-ray: Attestation: I personally reviewed and interpreted this imaging study as follows: My impression: Chest x-ray negative. Airway clear. No pneumothorax. No consolidation. No cardiomegaly or cephalization.. No free air under the diaphragm. No fractures of the skeletal structures. Pacemaker in place. Radiologist's impression: Chest X-Ray 12/04/24 18:07 EXAM: X-ray chest one-view portable CLINICAL HISTORY: Chest pain PRIORS: 11/24/2024 TECHNIQUE: Frontal view chest FINDINGS: Median sternotomy wires noted. Left-sided cardiac device noted with single lead, unchanged. Bilateral total shoulder arthroplasties present. The chest is well-expanded. Moderate atherosclerotic disease of the aortic knob. No airspace consolidation, effusion or congestive changes. Cardiac silhouette mildly enlarged, unchanged. No pneumothorax. Trachea is patent. Osseous structures demonstrate no acute abnormality. No radiopaque foreign body. IMPRESSION: No plain film evidence of an acute cardiopulmonary process. Electronically signed by Katherine Abraham 12-04-2024 8:03 PM ECG Data Attestation: I personally reviewed and interpreted this ECG as follows: Additional Comments: Intermittently paced rhythm with rate of 70. QRS 78 QTc 419. MDM Narrative Cardiac monitoring: An order was placed for continuous cardiac monitoring. The monitor shows a rate of 70 with paced rhythm interpreted by me Labs and imaging unremarkable. [facility] Impression & Plan SOB (shortness of breath), Chest pain Discharge Plan Visit Data Chief Complaint: Chest Pain Stated Complaint: SOB, SHINGLES ED Provider: Suresh Paige Discharge Problem: SOB (shortness of breath), Chest pain Patient Disposition: Admitted As Inpatient Condition: Fair Discharge Instructions Interventions: ED Discharge Assessment Last Done: 12/04/24 22:32
[2024-12-04] MEDS: MELATONIN 3 MG TAB PO PRN (23:53)
[2024-12-05] MEDS: LEVOTHYROXINE SODIUM 75 MCG TABLET PO SCH (06:24)
[2024-12-05 07:04] LABS: Hematocrit (blood only) 34.6 % (37.0-47.0); Hemoglobin 11.9 g/dl (12.0-16.0); Immature Granulocytes # (auto) 0.01 K/uL (0.01-0.20); Immature Granulocytes % (auto) 0.2 %; Mean Corpuscular Hemoglobin 31.2 pg (25.0-34.0); Mean Corpuscular Volume 90.6 fL (80.0-100.0); Platelet Count 144 K/uL (130-400); RDW Standard Deviation 44.3 fL (36.4-46.3); Red Blood Count 3.82 M/uL (4.20-5.40); White Blood Count 4.12 K/ul (4.8-10.8)
[2024-12-05 07:31] LABS: Anion Gap 7.0 (3-11); Blood Urea Nitrogen 21.0 mg/dl (6-23); Calcium 9.8 mg/dl (8.6-10.3); Carbon Dioxide 23.0 mmol/L (21-32); Chloride 111.0 mmol/L (98-107); Creatinine Clr Calc Pharmacy 31.2 ml/min; Glucose 88.0 mg/dl (70-99(Fasting)); Potassium 3.7 mmol/L (3.5-5.1); Sodium 141.0 mmol/L (136-145)
[2024-12-05] MEDS: FERROUS SULFATE 325 MG TAB PO SCH (08:21)
[2024-12-05] MEDS: busPIRone 15 MG TAB PO SCH (08:22)
[2024-12-05] MEDS: GABAPENTIN 100 MG CAP PO SCH (08:22)
[2024-12-05] MEDS: METOPROLOL SUCC 25MG EXT REL TAB PO SCH (08:22)
[2024-12-05] MEDS: CLOPIDOGREL BISULFATE 75 MG TAB PO SCH (08:22)
[2024-12-05] MEDS: APIXABAN 2.5 MG TAB PO SCH (08:22)
--- NOTE | 2024-12-05 14:15 | Hospitalist Progress Note ---
Date of Service December 05, 2024 Assessment & Plan (1) Asymptomatic hypertensive urgency: Plan: Possible shingles rash: Valtrex course, calamine lotion to help with itching. Hypertensive urgency: ISO acute illness. Blood pressure now getting better. Continue with home blood pressure medication. Other chronic medical illness: Continue with/resume home meds as and when able. 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 Outpatient endocrinology consultation for primary hyperparathyroidism anxiety/mood disorder, at baseline past tobacco abuse PT OT eval DVT prophylaxis. [employer] Full code Text document was generated using [employer] voice recognition software. It may contain grammatical or spelling errors. Kindly contact undersigned for clarification of any documentation item in question. Admission and Anticipated Discharge Date Admission Date: December 04, 2024 Subjective Patient was seen and examined at bedside. Patient was sitting up in chair, on room air, NAD, resting comfortably. Patient denies shortness of breath, reports eating okay and moving bowels okay. Patient reports itching rashes over the chest, denies much pain. Physical Exam Physical Exam: GENERAL: Comfortable, slightly anxious, no respiratory distress SKIN: Normal color, warm HEENT: [place] palpebral conjunctivae, no ptosis, moist buccal mucosa NECK : Supple, no tenderness CHEST : Scaling rash over upper sternal with minimal tenderness, CTA HEART : RRR, systolic murmur ABDOMEN: Some distention, nontender EXTREMITIES : Minimal LE LE swelling, no LE tenderness, palpable pulses, no other conspicuous deformities noted NEUROLOGIC : Coherent, no facial asymmetry, no other gross focality Results & Data Results & Data Vital Signs (Past 12 Hours) Vital Signs Temp Pulse Pulse Resp BP Pulse Ox O2 Del Method 12/05/24 09:14 Room Air 12/05/24 07:42 36.7 C 74 20 142/92 H 97 Room Air 12/05/24 07:33 70 12/05/24 03:05 36.4 C L 75 18 161/79 H 98 Room Air
[2024-12-05] MEDS: CALAMINE/PRAMOXINE LOTION 180 APPLN/180 ML BTL EXT PRN (16:19)
[2024-12-05] MEDS: ROSUVASTATIN CALCIUM 10 MG TAB PO SCH (22:00)
--- NOTE | 2024-12-06 13:20 | Hospitalist Progress Note ---
Date of Service December 06, 2024 Assessment & Plan (1) Asymptomatic hypertensive urgency: Plan: Possible shingles rash: Valtrex course, calamine lotion to help with itching. Hypertensive urgency: ISO acute illness. Blood pressure now better. Continue with home blood pressure medication. Other chronic medical illness: Continue with/resume home meds as and when able. 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 Outpatient endocrinology consultation for primary hyperparathyroidism anxiety/mood disorder, at baseline past tobacco abuse PT OT eval DVT prophylaxis. [employer] Full code Text document was generated using [employer] voice recognition software. It may contain grammatical or spelling errors. Kindly contact undersigned for clarification of any documentation item in question. Admission and Anticipated Discharge Date Admission Date: December 04, 2024 Subjective Patient was seen and examined at bedside. Patient was lying in bed, on room air, NAD, resting comfortably. Patient denies shortness of breath, reports eating okay and moving bowels okay. Patient reports itching rashes over the chest, denies much pain. reports some improvement. Physical Exam Physical Exam: GENERAL: Comfortable, slightly anxious, no respiratory distress SKIN: Normal color, warm HEENT: [place] palpebral conjunctivae, no ptosis, moist buccal mucosa NECK : Supple, no tenderness CHEST : Scaling rash over upper sternal with minimal tenderness, CTA HEART : RRR, systolic murmur ABDOMEN: Some distention, nontender EXTREMITIES : Minimal LE LE swelling, no LE tenderness, palpable pulses, no other conspicuous deformities noted NEUROLOGIC : Coherent, no facial asymmetry, no other gross focality Results & Data Results & Data Vital Signs (Past 12 Hours) Vital Signs Temp Pulse Pulse Resp BP Pulse Ox O2 Del Method 12/06/24 12:11 70 12/06/24 11:50 36.4 C L 71 16 106/68 98 Room Air 12/06/24 08:34 36.5 C 70 20 121/75 97 Room Air 12/06/24 03:07 36.3 C L 70 18 112/71 98 Room Air
[2024-12-06] MEDS: CALAMINE/PRAMOXINE LOTION 180 APPLN/180 ML BTL EXT PRN (15:46)
[2024-12-06] MEDS: diphenhydrAMINE 2%/ZINC 0.1% CREAM 28.4GM TUBE EXT PRN (21:50)
[2024-12-07 06:51] LABS: Hematocrit (blood only) 36.3 % (37.0-47.0); Hemoglobin 11.8 g/dl (12.0-16.0); Mean Corpuscular Hemoglobin 29.9 pg (25.0-34.0); Mean Corpuscular Volume 92.1 fL (80.0-100.0); Platelet Count 135 K/uL (130-400); RDW Standard Deviation 45.9 fL (36.4-46.3); Red Blood Count 3.94 M/uL (4.20-5.40); White Blood Count 4.89 K/ul (4.8-10.8)
[2024-12-07 07:13] LABS: Anion Gap 4.0 (3-11); Blood Urea Nitrogen 21.0 mg/dl (6-23); Calcium 10.1 mg/dl (8.6-10.3); Carbon Dioxide 24.0 mmol/L (21-32); Chloride 112.0 mmol/L (98-107); Creatinine Clr Calc Pharmacy 26.4 ml/min; Glucose 91.0 mg/dl (70-99(Fasting)); Potassium 4.3 mmol/L (3.5-5.1); Sodium 140.0 mmol/L (136-145)
--- NOTE | 2024-12-07 12:20 | Hospitalist Progress Note ---
Date of Service December 07, 2024 Assessment & Plan (1) Asymptomatic hypertensive urgency: Plan: Possible shingles rash: ruled out Likely contact dermatitis Was admitted w/ concern of shingles rash and was started on Valtrex Maculopapular rash involved upper chest bilaterally, no vesicles noted, no such rash elsewhere. No dermatomal distribution peculiar to shingles Pt complains of itching but all along has been denying sharp or shooting pain, paresthesias. Will dc valtrex, no need for isolation c/w calamine and benadryl lotion to help w/ itching, dc monitor leads, trial po steroid, f/u clinically. Hypertensive urgency: ISO acute illness. Blood pressure now better. Continue with home blood pressure medication. Other chronic medical illness: Continue with/resume home meds as and when able. chronic diastolic heart failure (EF 60 to 65%, TTE 2024), euvolemic to dry valvular heart disease (moderate to severe TR, moderate /MR, mild MR/VA) CAD status post CABG SSS status post PPM on Eliquis, paced rhythm ascending aorta dilatation hyperlipidemia, on statin Rx hx CVA meningioma mild dementia, patient currently mentating well. 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 Outpatient endocrinology consultation for primary hyperparathyroidism anxiety/mood disorder, at baseline past tobacco abuse med/surg, PT OT eval DVT prophylaxis. Eliquis Full code Text document was generated using [employer] voice recognition software. It may contain grammatical or spelling errors. Kindly contact undersigned for clarification of any documentation item in question. Admission and Anticipated Discharge Date Admission Date: December 06, 2024 Subjective Patient was seen and examined at bedside. Patient was lying in bed, on room air, NAD, resting comfortably. Patient denies shortness of breath, reports eating okay and moving bowels okay. Patient reports itching rashes over the chest, denies sharp pain or paresthesias. reports some improvement in itching. Physical Exam Physical Exam: GENERAL: Comfortable, slightly anxious, no respiratory distress SKIN: Normal color, warm HEENT: [place] palpebral conjunctivae, no ptosis, moist buccal mucosa NECK : Supple, no tenderness CHEST : Scaling rash over upper sternal with minimal tenderness, CTA, no vesicles noted yesterday or today. not dermatomal in distributions more of whole upper chest involvement, no such rash over other parts of the body. HEART : RRR, systolic murmur ABDOMEN: Some distention, nontender EXTREMITIES : Minimal LE LE swelling, no LE tenderness, palpable pulses, no other conspicuous deformities noted NEUROLOGIC : Coherent, no facial asymmetry, no other gross focality Results & Data Results & Data Vital Signs (Past 12 Hours) Vital Signs Temp Pulse Pulse Resp BP BP Pulse Ox 12/07/24 08:31 36.5 C 70 16 143/83 H 94 12/07/24 08:00 70 12/07/24 03:00 36.4 C L 69 18 135/82 97 O2 Del Method 12/07/24 08:31 Room Air 12/07/24 08:00 12/07/24 03:00 Room Air
[2024-12-07] MEDS: predniSONE 20 MG TAB PO STA (14:07)
[2024-12-07] MEDS: ACETAMINOPHEN 500 MG TAB PO PRN (19:00)
--- NOTE | 2024-12-08 04:47 | Electrocardiogram Report ---
Test Reason : Blood Pressure : */* mmHG Vent. Rate : 70 BPM Atrial Rate : * BPM P-R Int : * ms QRS Dur : 78 ms QT Int : 388 ms P-R-T Axes : * 24 -63 degrees QTcB Int : 419 ms Accelerated Junctional rhythm with frequent ventricular-paced complexes Septal infarct , age undetermined Abnormal ECG When compared with ECG of 04-Dec-2024 12:10, (unconfirmed) Vent. rate has decreased by 2 bpm Confirmed by Venu Seay ([id number]) on 12/08/2024 4:46:39 AM Referred By: REFERRED SELF Confirmed By: Venu Seay
[2024-12-08 07:59] LABS: Hematocrit (blood only) 34.6 % (37.0-47.0); Hemoglobin 11.4 g/dl (12.0-16.0); Mean Corpuscular Hemoglobin 30.2 pg (25.0-34.0); Mean Corpuscular Volume 91.5 fL (80.0-100.0); Platelet Count 127 K/uL (130-400); RDW Standard Deviation 45.4 fL (36.4-46.3); Red Blood Count 3.78 M/uL (4.20-5.40); White Blood Count 5.65 K/ul (4.8-10.8)
[2024-12-08] MEDS: PROMETHAZINE 6.25 MG/50.25 ML BAG IV PRN (10:49)
--- NOTE | 2024-12-08 11:57 | Hospitalist Progress Note ---
Date of Service December 08, 2024 Assessment & Plan (1) Asymptomatic hypertensive urgency: Plan: Possible shingles rash: ruled out Likely contact dermatitis Was admitted w/ concern of shingles rash and was started on Valtrex Maculopapular rash involved upper chest bilaterally, no vesicles noted, no such rash elsewhere. No dermatomal distribution peculiar to shingles Pt complains of itching but all along has been denying sharp or shooting pain, paresthesias. Dc'd valtrex on 12/07, no need for isolation c/w calamine and benadryl lotion to help w/ itching, dc monitor leads, trial po steroid -- improvement in rash and itching, will continue w/ total 5 days low dose steroid. Hypertensive urgency: ISO acute illness. Blood pressure now better. Continue with home blood pressure medication. Other chronic medical illness: Continue with/resume home meds as and when able. chronic diastolic heart failure (EF 60 to 65%, TTE 2024), euvolemic to dry valvular heart disease (moderate to severe TR, moderate /MR, mild MR/MO) CAD status post CABG SSS status post PPM on Eliquis, paced rhythm ascending aorta dilatation hyperlipidemia, on statin Rx hx CVA meningioma mild dementia, patient currently mentating well. 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 Outpatient endocrinology consultation for primary hyperparathyroidism anxiety/mood disorder, at baseline past tobacco abuse med/surg, PT OT eval DVT prophylaxis. Eliquis Full code Dispo: CM to assist, pt would like to chat w/ cm for assistance w/ her food at home, and would like to go home rachel. Text document was generated using [employer] voice recognition software. It may contain grammatical or spelling errors. Kindly contact undersigned for clarification of any documentation item in question. Admission and Anticipated Discharge Date Admission Date: December 06, 2024 Subjective Patient was seen and examined at bedside. Patient was lying in bed, on room air, NAD, resting comfortably. Patient denies shortness of breath, reports eating okay and moving bowels okay. Patient reports itching rashes over the chest improving, denies sharp pain or paresthesias. Physical Exam Physical Exam: GENERAL: Comfortable, slightly anxious, no respiratory distress SKIN: Normal color, warm HEENT: [place] palpebral conjunctivae, no ptosis, moist buccal mucosa NECK : Supple, no tenderness CHEST : macular rash over chest, scaling has improved, no vesicles or crust. Rash is improving. HEART : RRR, systolic murmur ABDOMEN: no distention, nontender EXTREMITIES : Minimal LE LE swelling, no LE tenderness, palpable pulses, no other conspicuous deformities noted NEUROLOGIC : Coherent, no facial asymmetry, no other gross focality Results & Data Results & Data Vital Signs (Past 12 Hours) Vital Signs Temp Pulse Resp BP Pulse Ox O2 Del Method 12/08/24 09:35 70 116/75 12/08/24 07:38 36.7 C 58 L 16 109/69 97 Room Air
--- NOTE | 2024-12-09 11:32 | Discharge Summary ---
Date of Service December 09, 2024 Admission HPI Per Admitting Provider History obtained from patient and records. Medical history significant for chronic diastolic heart failure (EF 60 to 65%, TTE 2024), valvular heart disease (moderate to severe TR, moderate /MR, mild MR/ND), CAD status post CABG, SSS status post PPM on Eliquis, ascending aorta dilatation, hypertension, hyperlipidemia, CVA, meningioma, mild dementia, hypothyroidism, hyperparathyroidism as per records, anxiety/mood disorder, past tobacco abuse. Monthly confinements since October 2024. Recent confinement November 24 to 2024 for decompensated heart failure. Rehab recommended following PT OT evaluation. [facility] rehab stay denied by insurance as per case management note. Patient discharged home yesterday with home health services. Patient sent to ER today because she looked short of breath to home health. Patient denies chest pain, cough or unusual shortness of breath. Patient discharged back to home. Patient sent back to ER because of chest pain complaints as per ED provider. Burning pruritic rash noted on patient's chest. No fever, no chills. Patient denies SOB. Highest SBP currently 170s. 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 Admission Exam Per Admitting Provider GENERAL: Comfortable, slightly anxious, no respiratory distress SKIN: Normal color, warm HEENT: [place] palpebral conjunctivae, no ptosis, dry buccal mucosa NECK : Supple, no tenderness CHEST : Scaling rash over upper sternal with minimal tenderness, CTA HEART : RRR, systolic murmur ABDOMEN: Some distention, nontender EXTREMITIES : Minimal LE LE swelling, no LE tenderness, palpable pulses, no other conspicuous deformities noted NEUROLOGIC : Coherent, no facial asymmetry, no other gross focality Principal Diagnosis Likely contact dermatitis Discharge Exam GENERAL: Comfortable, slightly anxious, no respiratory distress SKIN: Normal color, warm HEENT: [place] palpebral conjunctivae, no ptosis, moist buccal mucosa NECK : Supple, no tenderness CHEST : macular rash over chest, scaling has improved, no vesicles or crust. Rash is improving. HEART : RRR, systolic murmur ABDOMEN: no distention, nontender EXTREMITIES : Minimal LE LE swelling, no LE tenderness, palpable pulses, no other conspicuous deformities noted NEUROLOGIC : Coherent, no facial asymmetry, no other gross focality Discharge Data Allergies Allergy/AdvReac Type Severity Reaction Status Date / Time nitroglycerin AdvReac Severe "PROJECTILE Verified 11/10/24 19:53 VOMITTING" ergotamine AdvReac Intermediate vomiting Verified 11/10/24 19:53 Consultations 12/04/24 20:47 ED Decision to Admit Stat Hospital Course (1) Asymptomatic hypertensive urgency: Possible shingles rash: ruled out Likely contact dermatitis Was admitted w/ concern of shingles rash and was started on Valtrex Maculopapular rash involved upper chest bilaterally, no vesicles noted, no such rash elsewhere. No dermatomal distribution peculiar to shingles Pt complains of itching but all along has been denying sharp or shooting pain, paresthesias. Dc'd valtrex on 12/07, no need for isolation c/w calamine and benadryl lotion to help w/ itching, trial po steroid -- improvement in rash and itching, will continue w/ total 5 days low dose steroid. Hypertensive urgency: ISO acute illness. Blood pressure now better. Continue with home blood pressure medication. Other chronic medical illness: Continue with/resume home meds as and when able. chronic diastolic heart failure (EF 60 to 65%, TTE 2024), euvolemic to dry valvular heart disease (moderate to severe TR, moderate /MR, mild MR/ND) CAD status post CABG SSS status post PPM on Eliquis, paced rhythm ascending aorta dilatation hyperlipidemia, on statin Rx hx CVA meningioma mild dementia, patient currently mentating well. 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 Outpatient endocrinology consultation for primary hyperparathyroidism anxiety/mood disorder, at baseline past tobacco abuse med/surg, PT OT eval DVT prophylaxis. Eliquis Full code Patient is being discharged to home with home health. Text document was generated using [employer] voice recognition software. It may contain grammatical or spelling errors. Kindly contact undersigned for clarification of any documentation item in question. Home Health Attestation I certify that this patient is under my care and that I, or a physicians assistant to the vice president working with me, had a face to-face encounter that meets the home health [id number] encounter requirements with this patient. The encounter with the patient was in whole, or in part, for the following medical condition, which is the primary reason for home health care (list medical condition): I certify that, based on my findings, the following services are medically necessary home health services: My clinical findings support the need for the above services because: Further, I certify that my clinical findings support that this patient is homebound (i.e. absences from home require considerable and taxing effort and are for medical reasons or [employer] services or infrequently or of short duration when for other reasons) because: Certification for Home Health Services: Based on the above findings, I certify that this patient is confined to the home and needs intermittent shelter care, physical therapy and/or speech therapy or continues to need occupational therapy. The patient is under my care, and I have initiated the establishment of the plan of care. This patient will be followed by a physician who will periodically review the plan of care. Total Time Total Time Spent Total Time Spent (In Minutes): 35 Discharge Plan Discharge Items Patient Disposition: Home - Home Health Services Reason For Visit: HTN URGE Discharge Diagnosis: Likely contact dermatitis Condition on Discharge: Fair Activity: Resume your previous activity Non-emergency contact: Primary Care Provider Call non-emergency contact if: you have any medication questions Follow-up/Referrals: Gilbert Calloway MD [Primary Care Provider] - (Date & Time 12/12/2024 9:00 AM Provider: Daren Varela CRNP [facility] ) Diet: Heart Healthy Addtl Attending Provider Instructions: Follow-up with your primary care physician within a week time and likely you will need labs CBC/CMP/magnesium/phosphorus. Take your medications as prescribed. Please make sure that you are able to get your medications today by calling your pharmacy before you leave the hospital so that your treatment continuity is not broken. Pending Studies at Discharge: No Stand-Alone Forms: My [facility] [employer], Smoking Cessation Medications and DC Order Prescriptions: New prednisone 10 mg Tablet 10 mg PO QAM 2 Days Qty: 2 0RF Calamine Medicated 1-8 % Lotion 1 applic EXT Q6 PRN (Reason: itching) 5 Days Qty: 177 0RF Anti-Itch(diphenhyd) with Zinc 2-0.1 % Cream 1 applic EXT Q8H PRN (Reason: itching) 5 Days Qty: 35 0RF Continued levothyroxine [Synthroid] 75 mcg Tablet 75 mcg PO DAILYBB Qty: 30 0RF Eliquis 2.5 mg Tablet 2.5 mg PO BID Qty: 60 0RF melatonin 10 mg capsule 10 mg PO HS Qty: 30 0RF pantoprazole 40 mg tablet,delayed release (DR/EC) 40 mg PO AMHS calcitriol 0.25 mcg capsule 0.25 mcg PO 3XWK Rx Instructions: MONDAYS,WEDNESDAYS,FRIDAYS rosuvastatin 10 mg tablet 10 mg PO HS trazodone 100 mg tablet 100 mg PO HS gabapentin 100 mg capsule 100 mg PO BID metoprolol succinate 25 mg Tablet Extended Release 24 Hr 25 mg PO BID Qty: 60 0RF bacitracin zinc 500 unit/gram ointment 1 applic topical BID PRN (Reason: rash) Qty: 14 0RF acetaminophen 500 mg Tablet 500 mg PO TID PRN (Reason: Pain) clopidogrel 75 mg Tablet 75 mg PO QAM ferrous sulfate [FeroSul] 325 mg (65 mg iron) Tablet 325 mg PO DAILY buspirone 15 mg tablet 15 mg PO BID Discharge Orders: Discharge Order (Routine); Ordered 12/09/24 Ordered By: Catalina Mendoza Admission Data Admit Date/Time: 12/06/24 13:18 Attending Provider: Catalina Mendoza Admit Provider: Ilia Bullard Primary Care Provider: Gilbert Calloway Other Providers: [facility]; [facility]; Butch Johnson
[2024-12-09 12:59] VITALS: BP 149/70; RESP 16; TEMP 97.9; O2SAT 96
[2024-12-09 13:27] VITALS: PULSE 68
== END 2024-12-09 14:45 | disposition home health service (06) | DRG 305 ==
LOC: 2N 17:52 → ED 17:52 → 2N 22:32